=== PATIENT | female | born 1945 | race Two or more races ===

== ENCOUNTER 2019-08-14 10:58 | Inpatient (IN) | payer MEDICARE, MEDICAID, SELFPAY ==
[2019-08-14] VITALS (19 sets, daily range): BP systolic 116–150; BP diastolic 52–116; PULSE 76–98; RESP 16–25; TEMP 36.6–37; O2SAT 80–100; BMI 28.8
--- NOTE | ~2019-08-14 | XR_ITS ---
XR chest 2V DATE: 08/14/2019 13:42 INDICATION: Coughing TECHNIQUE: AP and lateral views COMPARISON: 07/29/2019 AP and lateral chest FINDINGS: There is mild elevation of the left navicular diaphragm. Cardiomegaly. Postoperative change of the heart. Aortic calcification. Proximal left arm vascular dane nt. No pulmonary infiltrate or consolidation, pleural effusion or pulmonary vascular congestion or pneumo thorax. Diffuse osteopenia. IMPRESSION: Cardiomegaly Aortic atherosclerosis Mild elevation left leaf of diaphragm Reviewed, dictated and finalized at location B. DAY CARE PROVIDER
--- NOTE | ~2019-08-14 | XR_ITS ---
XR chest 2V DATE: 08/16/2019 09:16 INDICATION: Shortness of breath, hypoxia. Flu. TECHNIQUE: PA and lateral views COMPARISON: 08/24/2021 view chest FINDINGS: Cardiomegaly. There is extensive thoracic and abdominal aortic calcification. No hilar or m ediastinal enlargement. No pulmonary infiltrate or consolidation, pleural effusion or pulmonary vascu lar congestion or pneumothorax. Diffuse osteopenia. IMPRESSION: Cardiomegaly; postoperative change of the heart Extensive thoracic and abdominal aortic calcification No active pulmonary disease Diffuse osteopenia Reviewed, dictated and finalized at location A. UREMENT PSYCHOLOGIST
--- NOTE | ~2019-08-14 | CT_ITS ---
EXAMINATION: CT chest wo con DATE: 08/17/2019 16:33 INDICATION: hallucinations, anxious, FLU+, crackles noted,PNA?,SOB TECHNIQUE: Computed tomography (CT) of the chest was performed without intravenous contrast. Addition al 3D reconstructions utilizing coronal maximum intensity projection (MIP) were performed. Automated exposure control and iterative reconstruction technique were employed. The dose-length product was 31 1.96 mGy-cm. COMPARISON: None FINDINGS: Mild respiratory motion throughout the lungs which mildly limits evaluation of fine pulmonary parench ymal detail. 9 x 6 mm subpleural nodule at the cephalad aspect of a band of atelectasis in the real estate underwriter ior left lower lobe. Remainder of the lungs are clear. No evident pneumonia or pulmonary edema. Small left pleural effusion. Cardiomegaly. Atrial appendage closure device at the left atrial appendage. A therosclerotic coronary artery calcifications. No pericardial effusion. Atherosclerotic calcification s throughout the thoracic aorta with fusiform ascending thoracic aortic aneurysm measuring up to 4.4 x 4.4 cm. No pathologically enlarged thoracic lymphadenopathy. At least moderate atrophy and multiple small cysts at the visualized upper poles of both kidneys. Moderate to severe thoracic spondylosis. IMPRESSION: 1. Small left pleural effusion. 2. 9 x 6 mm subpleural nodule in the left lower lobe most likely related to atelectasis but would rec ommend 3 month follow-up low-dose noncontrast chest CT. 3. Cardiomegaly with left atrial appendage occlusion device. 4. 4.4 cm ascending thoracic aortic aneurysm. 5. Bilateral renal atrophy. Reviewed, dictated and finalized at location A. TH COACH IMPRESSION: 1. Small left pleural effusion. 2. 9 x 6 mm subpleural nodule in the left lower lobe most likely related to ate lectasis but would recommend 3 month follow-up low-dose noncontrast chest CT. 3. Cardiomegaly with left atrial appendage occlusion device. 4. 4.4 cm ascending thoracic aortic aneurysm. 5. Bilateral renal atrophy.
--- NOTE | 2019-08-14 11:14 | ECG_ITS ---
Measurements Intervals [place]er Rate: 91 P: SC: 0 QRS: 97 QRSD: 90 T: 38 QT: 360 QTc: 443 Interpretive Statements ATRIAL FLUTTER WITH VARIABLE AV BLOCK RIGHT AXIS DEVIATION LOW QRS VOLTAGE IN PRECORDIAL LEADS BORDERLINE T WAVE ABNORMALITY- DIFFUSE LEADS BASELINE ARTIFACT- V1, V5-V6 ABNORMAL ECG Electronically Signed On 08-14-2019 11:49:22 CERAMIST by Danny Soliz D.O.
--- NOTE | 2019-08-14 12:22 | ED.WEAKNESS ---
HPI - Weakness General Chief complaint: Weakness Stated complaint: weakness, high bp Time Seen by Provider: 08/14/19 12:08 Source: patient, RN notes reviewed and other (translation director) Mode of arrival: ambulatory Limitations: no limitations History of Present Illness HPI Narrative: Pt is a 74 y/o female presenting to the ED c/o weakness. Pt reports she has been experiencing weakness since yesterday. Pt also reports SOB, CP, epigastric ABD pain, and cough. Pt states her epigastric ABD pain started yesterday and notes she has not eaten anything since. Pt's caregiver at bedside reports the pt was hospitalized to this facility last Sunday for 2 days due to having an unknown viral infection. Per caregiver, the pt tested negative for pneumonia or influenza at that time. Pt's caregiver states the pt lives alone and receives help from her for about 4 hrs a day. Per caregiver, the pt receives Dialysis on MWF, noting she last had Dialysis yesterday morning. Per caregiver, the pt's BP was 186/98, CA of 118, and had a BS over 300 this morning. Pt reports Hx's of DM and HTN. Onset (ago): unknown (Yesterday) Duration: constant Location: generalized Associated symptoms: chest pain, shortness of breath and other (Epigastric ABD pain; cough) Related Data Home Medications Medication Instructions Recorded Confirmed Januvia 100 mg PO DAILY 06/12/19 07/28/19 Prolia 60 mg SUBCUT [id number] 06/12/19 07/28/19 aspirin 81 mg PO DAILY 06/12/19 07/28/19 carvedilol 12.5 mg PO BID 06/12/19 07/28/19 cinacalcet [Sensipar] 30 mg PO DAILY 06/12/19 07/28/19 clotrimazole 1 applic TOPICAL BID 06/12/19 07/28/19 cyanocobalamin (vitamin B-12) 500 mcg PO DAILY 06/12/19 07/28/19 pioglitazone [Actos] 15 mg PO DAILY 06/12/19 07/28/19 sevelamer carbonate [Renvela] 1,600 mg PO TID 06/12/19 07/28/19 Victoza 2-Agustín 1.8 mg SUB-Q HS 07/28/19 07/28/19 imipramine HCl 25 mg PO HS 07/28/19 07/28/19 Allergies Allergy/AdvReac Type Severity Reaction Status Date / Time cefazolin Allergy Mild nausea/dizz Verified 08/07/19 11:05 iness enalapril Allergy Unknown cough Verified 08/07/19 11:05 pioglitazone Allergy Unknown Unknown Verified 08/07/19 11:05 tramadol Allergy Unknown hallucinati Verified 08/07/19 11:05 ons Review of Systems Review of Systems: All systems reviewed & are unremarkable except as noted in HPI and below Constitutional: Constitutional: Reports weakness (Generalized) Cardiovascular: Cardiovascular: Reports chest pain Respiratory: Respiratory: Reports cough and Reports dyspnea Gastrointestinal: Gastrointestinal: Reports abdominal pain (Epigastric) [facility] Past Medical History Medical History Anemia of chronic disease Atrial fibrillation paroxysmal AV fistula Closed fracture of lateral portion of right tibial plateau (~2014) DM2 (diabetes mellitus, type 2) End stage renal disease on dialysis Sunday Hyperlipidemia Hypertension Osteoarthritis of both knees Osteoporosis Presence of Watchman left atrial appendage closure device Staphylococcal septicemia (~2013) Surgical History Surgical History History of arthroplasty of right ankle History of arthroscopy (~12/07/12) wrist History of cataract extraction History of colonoscopy (~12/02/15) History of knee replacement (~2015) right Family History Family History Father Hypertension Family history of cardiovascular disease Mother Hypertension Diabetes mellitus Family history of lung cancer Sibling Family history of cardiovascular disease Social History Social History Social History: the patient is . She has 2 daughters and a son. The 2 daughters are listed as her durable power research attorney for health care and the patient desires to be a full code. She is a lifelong nonsmoker no alcohol no illicit
[2019-08-14 13:12] LABS: Alveolar/Arterial O2 Gradient 39.5 mmHg; Base Excess ABG 6.1 mEq/l (+/-2.0); Fractional Inspired Oxygen 21 %; HCO3 ABG 32.6 mEq/l (22.0-26.0); Oxygen Content ABG 9.9 %vol (16.0-22.0); Oxyhemoglobin 70.9 % THb (90.0-100.0); PCO2 ABG 57.6 mmHg (35.0-45.0); PO2 ABG 41.3 mmHg (80.0-100.0); PO2 FiO2 Ratio Arterial Blood 1.97 %; Total Hemoglobin 9.9 g/dL (12.0-18.0)
[2019-08-14 13:13] LABS: Device ROOM AIR; Modified Allen's Test Pass; Site Drawn LEFT RADIAL
[2019-08-14 13:14] LABS: Basophils Percent Auto 0.3 % (0.2-1.2); Hematocrit 32.9 % (37.0-47.0); Hemoglobin 9.4 g/dL (12.0-15.0); Immature Granulocyte Absolute 0.19 K/mm3 (0.00-0.031); Immature Granulocyte Percent A 1.3 % (0-0.5); Lymphocytes Absolute Auto 0.52 K/mm3 (0.9-3.2); Lymphocytes Percent Auto 3.7 % (18.3-44.2); Mean Corpuscular HGB Conc 28.6 g/dl (32-36); Mean Corpuscular Hemoglobin 31.2 pg (26-34); Mean Corpuscular Volume 109.3 fl (80-100); Mean Platelet Volume 12.6 fl (7.4-10.4); Monocytes Absolute Auto 0.8 K/mm3 (0.1-0.6); Monocytes Percent Auto 5.5 % (2.6-8.5); Neutrophils Absolute Auto 12.7 K/mm3 (1.3-6.7); Neutrophils Percent Auto 89.2 % (45.5-73.1); Nucleated Red Blood Cells Perc 0.1 % (0.0-0.2); Platelet Count Result 217 k/mm3 (150-375); Red Blood Count 3.01 M/mm3 (4.2-5.4); Red Cell Distribution Width 16.1 % (11.5-14.5); White Blood Count 14.2 K/mm3 (4.5-10.0)
[2019-08-14 13:21] LABS: Add Urine Microscopic? YES; Appearance Urine Cloudy (Clear); Bacteria Urine 3+ /hpf; Bilirubin Urine Negative (Negative); Blood Urine 2+ (Negative); Color Urine Yellow (Yellow); Glucose Urine UA 2+ mg/dL (Negative); Ketones Urine Trace mg/dL (Negative); Leukocyte Esterase Ur 2+ LEU/UL (Negative); Mucus Urine Rare /lpf; Nitrate Urine Negative (Negative); Protein Urine 1+ mg/dL (Negative); RBC Urine 21-50 /hpf (0-2); Specific Grav Ur 1.011 (1.001-1.035); Squamous Epithelial Cell Urine Many /hpf (Few); Urobilinogen Urine Negative mg/dL (<2.0); WBC Clumps Urine Present /HPF; WBC Urine >75 /hpf
[2019-08-14 13:24] LABS: INR 1.2; Prothrombin Time 14.8 Seconds (11.1-14.7)
[2019-08-14 13:25] LABS: Partial Thromboplastin Time 30.3 SECONDS (22.3-36.8)
[2019-08-14 13:26] LABS: Lactic Acid Reflex 1.3 mmol/L (0.7-2.1)
[2019-08-14 13:32] LABS: Alanine Aminotransferase 19 U/L (4-35); Albumin Level 3.9 g/dL (3.5-5.1); Alkaline Phosphatase 291 U/L (38-126); Aspartate Amino Transferase 24 U/L (14-36); Blood Urea Nitrogen 41 mg/dL (7-17); Calcium 9.1 mg/dL (8.4-10.2); Carbon Dioxide 34 mmol/L (22-30); Chloride 80 mmol/L (98-107); Estimated CRCL calculation 8 ml/min; Estimated Glomerular Filt Rate 9; Glucose 398 mg/dL (65-105); Potassium 5.1 mmol/L (3.4-5.0); Sodium 134 mmol/L (137-145)
[2019-08-14 13:43] LABS: CRP 16.1 mg/dL (<1.0)
[2019-08-14] MEDS: IPRATROPIUM BR 0.02% INH SOLN 0.5 MG/2.5 ML VIAL INHALATION (14:31)
[2019-08-14] MEDS: ALBUTEROL SULFATE NEB 2.5 MG/0.5 ML INH 5 MG INHALATION ×2 (14:31→20:27)
[2019-08-14] MEDS: methylPREDNISolone SOD SUCC 125 MG VIAL IV PUSH (15:54)
[2019-08-14] MEDS: levoFLOXacin 500 MG/D5W 100 ML 500 MG/100 ML BAG 100 MG IVPB (15:54)
--- NOTE | 2019-08-14 16:25 | PM.IMHP ---
H&P: HPI History of Present Illness Chief complaint: Cough, weakness. Narrative: Shasta Obando is a very pleasant 74 year old female with end-stage renal disease on hemodialysis, hypertension, diabetes, and several other comorbidities who presented to the emergency department earlier this afternoon via private vehicle from home for evaluation of cough and weakness. She has noted the hospitalist service as she was admitted to us overnight July 28, 2019 with cough and weakness, presumably due to a viral infection. She felt better on discharge but the fatigue has persisted, and she has been sleeping a lot of the day. Her cough has gotten worse over the last 12 hours or so, but remains nonproductive. She also mentions sneezing, some sinus congestion, wheezing, and mild shortness of breath with exertion. Prior to receiving a nebulizer treatment in the emergency department, she did have some mild chest tightness but that resolved. She has not had fever, chills, or sweats. Review of Systems Review of Systems: Narrative: Twelve systems were reviewed with pertinent positives and negatives as per HPI. No headache or neck ache. She denies otalgia and odynophagia. No exertional chest pain or shortness of breath. Denies orthopnea, PND, and lower extremity edema. Except as documented, all other systems were reviewed and are negative. [facility] Past Medical History Medical History (Updated 08/14/19 @ 20:35 by Leila Garcia PA-C) Anemia of chronic disease AV fistula Closed fracture of lateral portion of right tibial plateau (~2014) End stage renal disease on dialysis Dialysis days are Sunday, Sunday, and Sunday. She is on the transplant list at [place]. Hyperlipidemia Hypertension Osteoarthritis of both knees Osteoporosis Paroxysmal atrial fibrillation Presence of Watchman left atrial appendage closure device Staphylococcal septicemia (~2013) Type 2 diabetes mellitus Hemoglobin A1c was 6.6 in July 2019. Surgical History Surgical History History of arthroplasty of right ankle History of arthroscopy (~12/07/12) wrist History of cataract extraction History of colonoscopy (~12/02/15) History of knee replacement (~2015) right Family History Family History Father Hypertension Family history of cardiovascular disease Mother Hypertension Diabetes mellitus Family history of lung cancer Sibling Family history of cardiovascular disease Social History Social History (Updated 08/14/19 @ 20:23 by Leila Garcia PA-C) Social History: The patient is and lives in [place]. She is originally from [place]. 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 She has 2 daughters who live in [place]. She has 1 son who lives in [facility]. She designates her daughters as her surrogate decision makers and she wishes to be a full code. She is a lifelong nonsmoker. No alcohol or drug abuse. Spiritual care concerns: No Agree to blood products: Yes Meds Home Medications and Allergies Home Medications Medication Instructions Recorded Confirmed Type Januvia 100 mg PO DAILY 06/12/19 07/28/19 History Prolia 60 mg SUBCUT [id number] 06/12/19 07/28/19 History aspirin 81 mg PO DAILY 06/12/19 07/28/19 History carvedilol 12.5 mg PO BID 06/12/19 07/28/19 History cinacalcet [Sensipar] 30 mg PO DAILY 06/12/19 07/28/19 History clotrimazole 1 applic TOPICAL BID 06/12/19 07/28/19 History cyanocobalamin (vitamin B-12) 500 mcg PO DAILY 06/12/19 07/28/19 History pioglitazone [Actos] 15 mg PO DAILY 06/12/19 07/28/19 History sevelamer carbonate [Renvela] 1,600 mg PO TID 06/12/19 07/28/19 History lovastatin 20 mg tablet 20 mg PO DAILY #90 tablet 06/16/19 07/28/19 Rx Victoza 2-Agustín 1.8 mg SUB-Q HS 07/28/19 07/28/19 History imipramine HCl 25 mg PO HS 07/28/19 07/28/19 History losartan
--- NOTE | 2019-08-14 18:28 | ADMGEN ---
This patient, Shasta Obando, was admitted to 2 Medical Room 241-01. Patient/family oriented to hospital policies and general routines including ID bracelet, bed and alarms, visiting hours, pain management, procedures, bathroom and other care routines, personal items, smoking policy, room service/diet, and visiting hours. Valuables list has been completed. Information on how to activate the Rapid Response Team has been discussed. Patient/Family are encouraged to report perceived risks to care and to ask questions if they do not understand what they are told or what they should do.
[2019-08-14] MEDS: INSULIN ASPART (*BKC) 100 UNITS/ML 6 UNITS SUB-Q (19:20)
[2019-08-14 19:24] LABS: Glucose Point of Care 363 (65-105)
[2019-08-14] MEDS: INSULIN ASPART (*BKC) 100 UNITS/ML 8 UNITS SUB-Q (20:44)
[2019-08-14 20:58] LABS: Glucose Point of Care 405 (65-105)
[2019-08-14] MEDS: IMIPRAMINE HCL 25 MG TABLET PO (21:40)
[2019-08-14] MEDS: carvediloL 12.5 MG TABLET PO (21:40)
[2019-08-14 23:49] LABS: Glucose Point of Care 276 (65-105)
[2019-08-15] VITALS (27 sets, daily range): BP systolic 98–149; BP diastolic 47–89; PULSE 72–100; RESP 16–20; TEMP 36.3–37; O2SAT 83–100
[2019-08-15] MEDS: IPRATROPIUM BR 0.02% INH SOLN 0.5 MG/2.5 ML VIAL INHALATION ×3 (02:26→14:30)
[2019-08-15] MEDS: ALBUTEROL SULFATE NEB 2.5 MG/0.5 ML INH 5 MG INHALATION ×3 (02:27→14:30)
[2019-08-15 05:43] LABS: Hematocrit 30.2 % (37.0-47.0); Hemoglobin 8.5 g/dL (12.0-15.0); Mean Corpuscular HGB Conc 28.1 g/dl (32-36); Mean Corpuscular Hemoglobin 30.9 pg (26-34); Mean Corpuscular Volume 109.8 fl (80-100); Mean Platelet Volume 12.6 fl (7.4-10.4); Platelet Count Result 189 k/mm3 (150-375); Red Blood Count 2.75 M/mm3 (4.2-5.4); Red Cell Distribution Width 16.4 % (11.5-14.5); White Blood Count 10.4 K/mm3 (4.5-10.0)
[2019-08-15 05:55] LABS: Blood Urea Nitrogen 54 mg/dL (7-17); Calcium 8.2 mg/dL (8.4-10.2); Carbon Dioxide 32 mmol/L (22-30); Chloride 83 mmol/L (98-107); Estimated CRCL calculation 7 ml/min; Estimated Glomerular Filt Rate 7; Glucose 412 mg/dL (65-105); Potassium 5.2 mmol/L (3.4-5.0); Sodium 132 mmol/L (137-145)
[2019-08-15] MEDS: INSULIN ASPART (*BKC) 100 UNITS/ML SUB-Q (08:01)
[2019-08-15] MEDS: SEVELAMER CARBONATE 800 MG TABLET 1600 MG PO ×3 (08:03→17:57)
[2019-08-15] MEDS: CYANOCOBALAMIN 500 MCG TABLET PO (08:03)
[2019-08-15] MEDS: CINACALCET 30 MG TABLET PO (08:03)
[2019-08-15] MEDS: LOVASTATIN 20 MG TABLET PO (08:03)
[2019-08-15] MEDS: ASPIRIN 81 MG CHEWABLE TABLET PO (08:03)
[2019-08-15] MEDS: LOSARTAN POTASSIUM 25 MG TABLET PO (08:04)
[2019-08-15] MEDS: predniSONE 20 MG TABLET 40 MG PO (08:04)
[2019-08-15] MEDS: carvediloL 12.5 MG TABLET PO ×2 (08:04→19:54)
[2019-08-15] MEDS: MICONAZOLE NITRATE 2% CREAM 30 GM TUBE 1 APPLIC TOPICAL ×2 (08:14→17:58)
[2019-08-15 09:20] LABS: Glucose Point of Care 383 (65-105)
--- NOTE | 2019-08-15 09:36 | PM.CNNEP ---
Assessment and Plan Assessment and plan (1) End stage renal disease on dialysis: Code(s): N18.6 - End stage renal disease; Z99.2 - Dependence on renal dialysis Status: Chronic Assessment and Plan: Shasta has end-stage renal disease. She has been on dialysis for quite some time. She is due for dialysis today. I will go ahead and order this. Her potassium is a little high so I will do her on a low-potassium bath. We will take some fluid off as well. (2) Influenza A: Code(s): J10.1 - Influenza due to other identified influenza virus with other respiratory manifestations Status: Acute Assessment and Plan: The patient has a positive flu swab. She is on isolation. she will get antivirals. (3) Anemia of chronic disease: Code(s): D63.8 - Anemia in other chronic diseases classified elsewhere Status: Acute Assessment and Plan: Hemoglobin is 8.5. Will give Epogen. (4) Hypertension: Code(s): I10 - Essential (primary) hypertension Status: Chronic Assessment and Plan: Blood pressure is under good control. She is on carvedilol losartan for her blood pressure. (5) Atrial fibrillation: Qualifiers: Atrial fibrillation type: permanent Qualified Code(s): I48.21 - Permanent atrial fibrillation Code(s): I48.91 - Unspecified atrial fibrillation Status: Chronic Assessment and Plan: Heart rate is well controlled. She has a Watchman device. History of Present Illness Reason for Consult Consult date: 08/15/19 Chief Complaint Chief complaint: Cough, weakness. History of Present Illness Narrative: Shasta is a very pleasant 74-year-old lady who has multiple medical problems including end-stage renal disease on dialysis 3 times a week, hypertension, diabetes, calciphylaxis, recurrent hyperkalemia, anemia of chronic kidney disease, renal osteodystrophy, hyperlipidemia, osteoporosis. The patient was well on Sunday morning. She went to dialysis and at I actually saw her there. She says that Sunday evening she developed shortness of breath and fever. She also had aches and pains. She has had a cough for 3 weeks and that was a little bit worse she thinks. She has not started on any new medications. She does not have any sick contacts. morning she felt worse and so she went to the emergency room. She was evaluated in the ER and they swab was positive for influenza a. Chest x-ray did not show fluid overload. She was admitted to the floor. She has no chest pain. No GI symptoms. No skin rash. She does not smoke or drink. Review of Systems Constitutional: Constitutional: Reports no additional constitutional complaints Eyes: Eyes: Reports no additional eye complaints ENT: Reports system reviewed and no additional complaints, except as documented Cardiovascular: Cardiovascular: Reports no additional cardiovascular complaints Respiratory: Respiratory: Reports no additional respiratory complaints Gastrointestinal: Gastrointestinal: Reports no additional gastrointestinal complaints Genitourinary: Genitourinary: Reports no additional female genitourinary complaints Musculoskeletal: Musculoskeletal: Reports no additional musculoskeletal complaints Integumentary/Breasts: Skin/Breast: Reports system reviewed and no additional complaints, except as docu Neurologic: Reports system reviewed and no additional complaints, except as documented Psychiatric: Psychiatric: Reports no additional psychiatric complaints PMFSH Past Medical History Medical History Anemia of chronic disease AV fistula Closed fracture of lateral portion of right tibial plateau (~2014) End stage renal disease on dialysis Dialysis days are Sunday, Sunday, and Sunday. She is on the transplant list at [place]. Hyperlipidemia Hypertension Osteoarthritis of both knees Osteoporosis Paroxysmal atrial fib
--- NOTE | 2019-08-15 10:52 | PM.IMPN ---
Progress Note: A&P Assessment and Plan (1) Acute respiratory failure with hypoxia: Code(s): J96.01 - Acute respiratory failure with hypoxia Status: Acute Assessment and Plan: Could be secondary to acute influenza A, patient does have some crackles in her lungs in a.m. concerned about pneumonia. We will recheck her chest x-ray in the morning since she is feeling better today but still hypoxic. The patient is still found to be hypoxic on room air. The nurse states she was 100% on 2 L and had waiting the patient down to room air and the next time they checked on her her oxygen saturation was 85%. They placed her back on 2 L of oxygen at this time. I told the nurse to wean the patient's oxygen as tolerated to keep saturation between 90-95%. We will continue monitoring patient's respiratory status. Wean oxygen as tolerated. (2) Influenza A: Code(s): J10.1 - Influenza due to other identified influenza virus with other respiratory manifestations Status: Acute Assessment and Plan: With talking to the patient it seems that her symptoms began Sunday evening which is less than 24 hours prior to arrival. She was started on Tamiflu this morning and will continue that for 5 days. Droplet precautions are initiated on the patient. Are stable other than hypoxia and requiring oxygen. Will continue monitoring her symptoms with conservative management and Tamiflu. (3) Acute bronchospasm: Code(s): J98.01 - Acute bronchospasm Status: Acute Assessment and Plan: Patient was having some wheezing and chest pressure/tightness which was improved after some breathing treatments and steroids. Secondary to upper respiratory infection and influenza. She was given a dose of IV steroids in the emergency department upon arrival. Today she was started on p.o. prednisone taper for her acute bronchospasm. She is still having some wheezing and decreased air movement throughout her lungs today. Will continue monitoring her respiratory status with DuoNebs, oral prednisone, and oxygen as needed. (4) End stage renal disease on dialysis: Code(s): N18.6 - End stage renal disease; Z99.2 - Dependence on renal dialysis Status: Chronic Assessment and Plan: Dr. Suarez evaluated the patient and has set up dialysis for today. Her creatinine this morning was 5.9, slight hypokalemia at 5.2. Will continue monitoring her renal function, urine output, monitor further during hospitalization. Nephrology is consult is greatly appreciated. (5) Anemia of chronic disease: Code(s): D63.8 - Anemia in other chronic diseases classified elsewhere Status: Acute Assessment and Plan: Patient's hemoglobin last admission was initially 11.3 and decreased to 9.9. On arrival the patient's hemoglobin was 9.4 and hematocrit was 32.9. Hemoglobin this morning was 8.5 and hematocrit was 30.2% Dr. Suarez is going to add Epogen with her dialysis today. Continue monitoring H&H. No acute signs of bleeding at this time. Transfuse as needed. (6) Hypertension: Code(s): I10 - Essential (primary) hypertension Status: Chronic Assessment and Plan: Patient's blood pressure has been stable since arrival BP this morning was 117/55. Stable. Continue antihypertensives and monitor daily. (7) Type 2 diabetes mellitus: Code(s): E11.9 - Type 2 diabetes mellitus without complications Status: Acute Assessment and Plan: Patient's hemoglobin A1c on 07/29/2019 was 6.6. Serum glucose on arrival was 398. She was given IV Solu-Medrol in the emergency department. Her serum glucose this morning was 412. She was given 8 units this morning. Initiate sliding
[2019-08-15 11:44] LABS: Glucose Point of Care 452 (65-105)
[2019-08-15] MEDS: INSULIN ASPART (*BKC) 100 UNITS/ML 8 UNITS SUB-Q (12:11)
[2019-08-15] MEDS: OSELTAMIVIR PHOSPHATE 30 MG CAPSULE PO (12:12)
[2019-08-15] MEDS: INSULIN ASPART (*BKC) 100 UNITS/ML 12 UNITS SUB-Q ×2 (18:26→20:50)
[2019-08-15 18:29] LABS: Glucose Point of Care 440 (65-105)
--- NOTE | 2019-08-15 19:34 | PHAR ---
VICTOZA 18MG/3ML PEN VERIFIED
[2019-08-15] MEDS: INSULIN GLARGINE (*BKC) 100 UNITS/ML 20 UNITS SUB-Q (19:56)
[2019-08-15 20:12] LABS: Glucose Point of Care > 500 (65-105)
[2019-08-16] VITALS (17 sets, daily range): BP systolic 121–134; BP diastolic 61–93; PULSE 79–119; RESP 16–20; TEMP 36.4–37.4; O2SAT 87–100
[2019-08-16 00:07] LABS: Glucose Point of Care 103 (65-105)
[2019-08-16] MEDS: IPRATROPIUM BR 0.02% INH SOLN 0.5 MG/2.5 ML VIAL INHALATION ×4 (02:05→21:30)
[2019-08-16] MEDS: ALBUTEROL SULFATE NEB 2.5 MG/0.5 ML INH 5 MG INHALATION ×4 (02:05→21:30)
[2019-08-16 02:18] LABS: Glucose Point of Care 174 (65-105)
[2019-08-16 06:20] LABS: Glucose Point of Care 171 (65-105)
[2019-08-16 06:44] LABS: Basophils Percent Auto 0.1 % (0.2-1.2); Hematocrit 30.4 % (37.0-47.0); Hemoglobin 8.7 g/dL (12.0-15.0); Immature Granulocyte Absolute 0.13 K/mm3 (0.00-0.031); Lymphocytes Absolute Auto 0.63 K/mm3 (0.9-3.2); Lymphocytes Percent Auto 4.7 % (18.3-44.2); Mean Corpuscular HGB Conc 28.6 g/dl (32-36); Mean Corpuscular Volume 108.2 fl (80-100); Mean Platelet Volume 12.1 fl (7.4-10.4); Monocytes Absolute Auto 0.9 K/mm3 (0.1-0.6); Monocytes Percent Auto 6.8 % (2.6-8.5); Neutrophils Absolute Auto 11.8 K/mm3 (1.3-6.7); Neutrophils Percent Auto 87.4 % (45.5-73.1); Nucleated Red Blood Cells Perc 0.1 % (0.0-0.2); Platelet Count Result 212 k/mm3 (150-375); Red Blood Count 2.81 M/mm3 (4.2-5.4); Red Cell Distribution Width 16.4 % (11.5-14.5); White Blood Count 13.5 K/mm3 (4.5-10.0)
[2019-08-16 06:56] LABS: Albumin Level 3.2 g/dL (3.5-5.1); Blood Urea Nitrogen 27 mg/dL (7-17); Calcium 7.8 mg/dL (8.4-10.2); Carbon Dioxide 34 mmol/L (22-30); Chloride 91 mmol/L (98-107); Estimated CRCL calculation 11 ml/min; Estimated Glomerular Filt Rate 13; Glucose 174 mg/dL (65-105); Phosphorus 3.6 mg/dL (2.5-4.5); Sodium 135 mmol/L (137-145)
[2019-08-16] MEDS: CYANOCOBALAMIN 500 MCG TABLET PO (08:00)
[2019-08-16] MEDS: LOVASTATIN 20 MG TABLET PO (08:00)
[2019-08-16] MEDS: carvediloL 12.5 MG TABLET PO ×2 (08:00→20:31)
[2019-08-16] MEDS: predniSONE 20 MG TABLET 40 MG PO (08:00)
[2019-08-16] MEDS: LOSARTAN POTASSIUM 25 MG TABLET PO (08:01)
[2019-08-16] MEDS: CINACALCET 30 MG TABLET PO (08:01)
[2019-08-16] MEDS: SEVELAMER CARBONATE 800 MG TABLET 1600 MG PO ×3 (08:02→17:17)
[2019-08-16] MEDS: MICONAZOLE NITRATE 2% CREAM 30 GM TUBE 1 APPLIC TOPICAL ×2 (08:09→17:18)
[2019-08-16 08:52] LABS: Anisocytosis 1+ (NORMAL); Hypochromasia 1+ (NORMAL); Macrocytosis 1+ (NORMAL); Platelet Estimate Adequate (Adequate)
[2019-08-16 09:29] LABS: Glucose Point of Care 175 (65-105)
[2019-08-16] MEDS: ASPIRIN 81 MG CHEWABLE TABLET PO (10:32)
--- NOTE | 2019-08-16 10:43 | PM.PNNEP ---
Progress Note: A&P Assessment and Plan (1) End stage renal disease on dialysis: Code(s): N18.6 - End stage renal disease; Z99.2 - Dependence on renal dialysis Status: Chronic Assessment and Plan: HD yesterday and continue M/W/F schedule while hospitalized electrolytes, volume status, and clearance seem acceptable (2) Influenza A: Code(s): J10.1 - Influenza due to other identified influenza virus with other respiratory manifestations Status: Acute Assessment and Plan: as noted by positive flu swab on Tamiflu continue supportive therapy (3) Anemia of chronic disease: Code(s): D63.8 - Anemia in other chronic diseases classified elsewhere Status: Acute Assessment and Plan: due to ESRD and possibly worsened by acute illness Epogen with HD follow trend of H/H (4) Hypertension: Code(s): I10 - Essential (primary) hypertension Status: Chronic Assessment and Plan: blood pressure under good control continue carvedilol and losartan follow trend of hemodynamics (5) Acute bronchospasm: Code(s): J98.01 - Acute bronchospasm Status: Acute Assessment and Plan: secondary to influenza on supplemental oxygen, nebulizer treatments, and steroids Will continue to follow. Subjective Date/time seen: 08/16/19 10:43 Tolerated dialysis yesterday evening without any issues or problems; she is still requiring supplement oxygen at this time; also has a nonproductive cough as well; no apparent distress voiced. Exam Narrative: Exam Narrative: General: WD/WN female in NAD Heart: normal S1 and S2; no rub Lungs: some expiratory wheezes noted Abdomen: soft, nontender, nondistended, positive bowel sounds Extremities: no cyanosis or clubbing; no edema Skin: warm and dry Objective Data Vital Signs Vital Signs: Vital Signs Temp Pulse Resp BP Pulse Ox 08/16/19 10:35 93 08/16/19 10:30 87 L 08/16/19 09:46 85 18 08/16/19 09:30 88 18 100 08/16/19 08:00 119 H 08/16/19 05:44 36.9 C 119 H 20 123/93 H 96 08/16/19 02:15 89 20 08/16/19 02:05 85 20 08/15/19 23:30 36.6 C 82 20 135/70 08/15/19 23:23 73 119/58 L 08/15/19 23:15 72 124/56 L 08/15/19 23:00 77 98/52 L 08/15/19 22:45 76 104/47 L 08/15/19 22:30 78 112/49 L 08/15/19 22:15 80 111/47 L 08/15/19 22:00 76 118/50 L 08/15/19 21:45 84 118/56 L 08/15/19 21:30 86 130/89 08/15/19 21:15 76 111/57 L 08/15/19 21:00 80 122/63 08/15/19 20:45 81 132/67 08/15/19 20:30 81 149/63 H 08/15/19 20:22 83 136/69 08/15/19 20:15 36.8 C 89 20 133/60 08/15/19 19:54 80 08/15/19 14:40 88 16 08/15/19 14:30 86 16 08/15/19 14:00 36.4 C 86 20 117/55 L 100 08/15/19 13:00 83 L Intake/Output Intake/Output: Intake & Output 08/13/19 08/14/19 08/15/19 08/16/19 23:59 23:59 23:59 23:59 Intake Total 2180 600 Output Total 2700 Balance -520 600 Meds/Results Medications: Active Medications Generic Name Dose Route Start Last Admin Trade Name Freq PRN Reason Stop Dose Admin Albuterol 5 mg 08/15/19 02:00 08/16/19 09:30 Albuterol Sulf Neb 2.5mg/0.5ml INHALATION 5 mg Q6HRT THERESE Administration Aspirin 81 mg 08/15/19 09:00 08/16/19 10:32 Aspirin Chewable PO 81 mg DAILY THERESE Administration Carvedilol 12.5 mg 08/14/19 21:00 08/16/19 08:00 Coreg PO 12.5 mg Q12HR THERESE Administration Cinacalcet 30 mg 08/15/19 09:00 08/16/19 08:01 Sensipar PO 30 mg DAILY THERESE Administration Cyanocobalamin 500 mcg 08/15/19 09:00 08/16/19 08:00 Vitamin B-12 Tab PO 500 mcg DAILY THERESE Administration Dextrose 12.5 gm 08/14/19 18:51 Dextrose 50% Syringe IV PUSH PRN PRN Hypoglycemia Protocol Ergocalciferol 50,000 unit 08/21/19 09:00 Elvis WILCOX Th@0900 [facility] Glucag
[2019-08-16] MEDS: INSULIN ASPART (*BKC) 100 UNITS/ML SUB-Q ×2 (12:34→17:19)
[2019-08-16 12:54] LABS: Glucose Point of Care 221 (65-105)
--- NOTE | 2019-08-16 16:18 | PM.IMPN ---
Progress Note: A&P Assessment and Plan (1) Acute respiratory failure with hypoxia: Code(s): J96.01 - Acute respiratory failure with hypoxia Status: Acute Assessment and Plan: Could be secondary to acute influenza A, patient does have some wheezing in her lungs with inspiration expiration. Repeat chest x-ray this morning showed no acute pneumonia or abnormality. She is still hypoxic and requiring 1 L via nasal cannula. We will continue trying to wean the patient as tolerated. I told the nurse to wean the patient's oxygen as tolerated to keep saturation between 90-95%. We will continue monitoring patient's respiratory status. Wean oxygen as tolerated. (2) Influenza A: Code(s): J10.1 - Influenza due to other identified influenza virus with other respiratory manifestations Status: Acute Assessment and Plan: With talking to the patient it seems that her symptoms began Sunday evening which is less than 24 hours prior to arrival. She was started on Tamiflu this morning and will continue that for 5 days. Droplet precautions are initiated on the patient. He does have some weakness, fatigue, diaphoresis along with hypoxia and requiring oxygen. Will continue monitoring her symptoms with conservative management and Tamiflu. (3) Acute bronchospasm: Code(s): J98.01 - Acute bronchospasm Status: Acute Assessment and Plan: Patient was having some wheezing and chest pressure/tightness which was improved after some breathing treatments and steroids. Secondary to upper respiratory infection and influenza. She was given a dose of IV steroids in the emergency department upon arrival. Today, she has more air movement but has increased wheezing with end inspiration and throughout expiration. Continued on p.o. prednisone taper 40 mg (day 2) for her acute bronchospasm, will decrease to 30 mg for 2 days then 20 mg for 2 days then 10 mg for 2 days. Will continue monitoring her respiratory status with DuoNebs, oral prednisone, and oxygen as needed. (4) Cardiomegaly: Code(s): I51.7 - Cardiomegaly Status: Acute Assessment and Plan: The patient also has crackles noted to bilateral lung salazar, mostly to posterior aspect of her lungs. On CXR she does have Cardiomegaly. I do not see an echocardiogram in the patients chart and she could have some pulmonary edema causing some hypoxia and symptoms. Will order Echocardiogram to further evaluate her heart function. Continue monitoring respiratory status and fluid status. (5) End stage renal disease on dialysis: Code(s): N18.6 - End stage renal disease; Z99.2 - Dependence on renal dialysis Status: Chronic Assessment and Plan: Dr. Suarez evaluated the patient and has set up dialysis for today. Her creatinine this morning was 3.4, after dialysis yesterday. Will continue monitoring her renal function, urine output, monitor further during hospitalization. Nephrology is consult is greatly appreciated. (6) Anemia of chronic disease: Code(s): D63.8 - Anemia in other chronic diseases classified elsewhere Status: Acute Assessment and Plan: Patient's hemoglobin last admission was initially 11.3 and decreased to 9.9. On arrival the patient's hemoglobin was 9.4 and hematocrit was 32.9. Hemoglobin this morning was 8.7 and hematocrit was 30.4% stable. Dr. Suarez did give her Epogen with her dialysis yesterday Continue monitoring H&H. No acute signs of bleeding at this time. Transfuse as needed. (7) Hypertension: Code(s): I10 - Essential (primary) hypertension Status: Chronic Assessment and Plan: Patient's blood pressur
[2019-08-16 19:22] LABS: Glucose Point of Care 306 (65-105)
[2019-08-16] MEDS: INSULIN GLARGINE (*BKC) 100 UNITS/ML 20 UNITS SUB-Q (20:26)
[2019-08-16] MEDS: IMIPRAMINE HCL 25 MG TABLET PO (20:31)
[2019-08-16 22:27] LABS: Glucose Point of Care 343 (65-105)
[2019-08-17] VITALS (14 sets, daily range): BP systolic 144–152; BP diastolic 59–80; PULSE 68–96; RESP 16–20; TEMP 36.3–37.3; O2SAT 92–100
[2019-08-17] MEDS: ALBUTEROL SULFATE NEB 2.5 MG/0.5 ML INH 5 MG INHALATION ×4 (02:41→19:33)
[2019-08-17] MEDS: IPRATROPIUM BR 0.02% INH SOLN 0.5 MG/2.5 ML VIAL INHALATION ×4 (02:41→19:33)
[2019-08-17 05:14] LABS: Basophils Percent Auto 0.1 % (0.2-1.2); Hematocrit 28.5 % (37.0-47.0); Hemoglobin 8.5 g/dL (12.0-15.0); Immature Granulocyte Absolute 0.08 K/mm3 (0.00-0.031); Immature Granulocyte Percent A 0.8 % (0-0.5); Lymphocytes Absolute Auto 0.84 K/mm3 (0.9-3.2); Lymphocytes Percent Auto 8.2 % (18.3-44.2); Mean Corpuscular HGB Conc 29.8 g/dl (32-36); Mean Corpuscular Hemoglobin 31.7 pg (26-34); Mean Corpuscular Volume 106.3 fl (80-100); Mean Platelet Volume 11.8 fl (7.4-10.4); Monocytes Absolute Auto 0.7 K/mm3 (0.1-0.6); Monocytes Percent Auto 6.8 % (2.6-8.5); Neutrophils Absolute Auto 8.6 K/mm3 (1.3-6.7); Neutrophils Percent Auto 84.1 % (45.5-73.1); Platelet Count Result 193 k/mm3 (150-375); Red Blood Count 2.68 M/mm3 (4.2-5.4); Red Cell Distribution Width 16.8 % (11.5-14.5); White Blood Count 10.3 K/mm3 (4.5-10.0)
[2019-08-17 05:27] LABS: Albumin Level 3.2 g/dL (3.5-5.1); Blood Urea Nitrogen 55 mg/dL (7-17); Calcium 7.5 mg/dL (8.4-10.2); Carbon Dioxide 30 mmol/L (22-30); Chloride 88 mmol/L (98-107); Estimated CRCL calculation 8 ml/min; Estimated Glomerular Filt Rate 8; Glucose 282 mg/dL (65-105); Phosphorus 3.9 mg/dL (2.5-4.5); Potassium 4.4 mmol/L (3.4-5.0); Sodium 131 mmol/L (137-145)
[2019-08-17 07:20] LABS: Anisocytosis 1+ (NORMAL); Hypochromasia 1+ (NORMAL); Platelet Estimate Adequate (Adequate)
[2019-08-17 07:22] LABS: Macrocytosis 1+ (NORMAL)
[2019-08-17] MEDS: CINACALCET 30 MG TABLET PO (08:55)
[2019-08-17] MEDS: SEVELAMER CARBONATE 800 MG TABLET 1600 MG PO ×3 (08:55→17:46)
[2019-08-17] MEDS: ASPIRIN 81 MG CHEWABLE TABLET PO (08:56)
[2019-08-17] MEDS: carvediloL 12.5 MG TABLET PO ×2 (08:56→21:33)
[2019-08-17] MEDS: LOVASTATIN 20 MG TABLET PO (08:56)
[2019-08-17] MEDS: CYANOCOBALAMIN 500 MCG TABLET PO (08:56)
[2019-08-17] MEDS: LOSARTAN POTASSIUM 25 MG TABLET PO (08:56)
[2019-08-17] MEDS: MICONAZOLE NITRATE 2% CREAM 30 GM TUBE 1 APPLIC TOPICAL ×2 (08:57→17:47)
[2019-08-17] MEDS: predniSONE 10 MG TABLET 30 MG PO (08:57)
[2019-08-17] MEDS: VITAMIN B CMPLX/VIT C/FOLIC AC 1 CAPSULE 1 CAP PO (09:03)
[2019-08-17 11:35] LABS: Glucose Point of Care 169 (65-105)
--- NOTE | 2019-08-17 12:14 | PM.IMPN ---
Progress Note: A&P Assessment and Plan (1) Hallucinations: Code(s): R44.3 - Hallucinations, unspecified Status: Acute Assessment and Plan: The patient's caregiver states she is having hallucinations, confusion and more anxious. She states she is very sensitive to new medications but the only thing I had started yesterday was Spiriva after talking to the pathology lab technician about her breathing. I will discontinue the Spiriva at this time. She still has diffuse crackles and wheezing throughout anterior and posterior lung salazar. I am going to order a CT chest to rule out any underlying pneumonia from her influenza. She was on IV ceftriaxone for possible UTI but once her urine culture was negative I discontinued it. I also will order a UA with reflux culture. Continue monitoring patient's symptoms overnight and rule out any underlying infection. (2) Acute respiratory failure with hypoxia: Code(s): J96.01 - Acute respiratory failure with hypoxia Status: Acute Assessment and Plan: Could be secondary to acute influenza A, patient does have some wheezing in her lungs with inspiration expiration. Yesterday, Chest x-ray showed no acute pneumonia or abnormality. She is resting comfortably on room air today. She still has a cough and chest congestion. We will continue monitoring patient's respiratory status. Wean oxygen as tolerated. (3) Influenza A: Code(s): J10.1 - Influenza due to other identified influenza virus with other respiratory manifestations Status: Acute Assessment and Plan: With talking to the patient it seems that her symptoms began Sunday evening which is less than 24 hours prior to arrival. She was started on Tamiflu and will continue that for 5 days. Droplet precautions are initiated on the patient. He does have some weakness, fatigue, diaphoresis but is no longer required oxygen. Will continue monitoring her symptoms with conservative management and Tamiflu. (4) Acute bronchospasm: Code(s): J98.01 - Acute bronchospasm Status: Acute Assessment and Plan: Patient was having some wheezing which was improved after some breathing treatments and steroids. Secondary to upper respiratory infection and influenza. She was given a dose of IV steroids in the emergency department upon arrival. Today, she has more air movement but has increased wheezing with end inspiration and throughout expiration. Due to symptoms of hallucinations, and confusion today I will perform a CT scan of her chest to rule out any underlying pneumonia causing altered mental status. Continued on p.o. prednisone taper she started on 30 mg today for 2 days then 20 mg for 2 days then 10 mg for 2 days. Will continue monitoring her respiratory status with DuoNebs, oral prednisone, and oxygen as needed. (5) Cardiomegaly: Code(s): I51.7 - Cardiomegaly Status: Acute Assessment and Plan: The patient also has crackles noted to bilateral lung salazar, mostly to posterior aspect of her lungs. On CXR she does have Cardiomegaly. I do not see an echocardiogram in the patients chart and she could have some pulmonary edema causing some hypoxia and symptoms. Will order Echocardiogram to further evaluate her heart function. Continue monitoring respiratory status and fluid status. (6) End stage renal disease on dialysis: Code(s): N18.6 - End stage renal disease; Z99.2 - Dependence on renal dialysis Status: Chronic Assessment and Plan: Dr. Suarez evaluated the patient and has set up dialysis for today. Her creatinine this morning was 5.10 She is due for dialysis tomorrow. Will continue monitoring her renal function, urine output, monitor furth
[2019-08-17 12:54] LABS: Glucose Point of Care 175 (65-105)
--- NOTE | 2019-08-17 15:22 | PM.PNNEP ---
Progress Note: A&P Assessment and Plan (1) End stage renal disease on dialysis: Code(s): N18.6 - End stage renal disease; Z99.2 - Dependence on renal dialysis Status: Chronic Assessment and Plan: HD tomorrow and continue M/W/F schedule while hospitalized electrolytes, volume status, and clearance seem acceptable (2) Influenza A: Code(s): J10.1 - Influenza due to other identified influenza virus with other respiratory manifestations Status: Acute Assessment and Plan: as noted by positive flu swab on Tamiflu continue supportive therapy CT of chest ordered given persistent hypoxia (3) Anemia of chronic disease: Code(s): D63.8 - Anemia in other chronic diseases classified elsewhere Status: Acute Assessment and Plan: due to ESRD and possibly worsened by acute illness Epogen with HD follow trend of H/H (4) Hypertension: Code(s): I10 - Essential (primary) hypertension Status: Chronic Assessment and Plan: blood pressure under good control continue carvedilol and losartan follow trend of hemodynamics (5) Acute bronchospasm: Code(s): J98.01 - Acute bronchospasm Status: Acute Assessment and Plan: secondary to influenza on supplemental oxygen, nebulizer treatments, and steroids Will continue to follow. Subjective Date/time seen: 08/17/19 15:22 Respiratory status still not back to baseline -- CT of chest done today to evaluate for possible pneumonia; anxious for discharge but aware that breathing needs be better first. Exam Narrative: Exam Narrative: General: WD/WN female in NAD Heart: normal S1 and S2; no rub Lungs: coarse breath sounds with expiratory wheezes Abdomen: soft, nontender, nondistended, positive bowel sounds Extremities: no cyanosis or clubbing; no edema Skin: no rash Objective Data Vital Signs Vital Signs: Vital Signs Temp Pulse Resp BP Pulse Ox 08/17/19 14:20 73 20 08/17/19 14:05 95 20 08/17/19 14:00 36.3 C L 89 20 152/80 H 100 08/17/19 08:56 96 08/17/19 08:16 96 20 08/17/19 08:03 82 20 93 08/17/19 05:57 37.3 C 73 16 144/59 H 94 08/17/19 05:45 92 08/17/19 02:57 68 18 08/17/19 02:42 71 18 08/16/19 21:44 37.4 C 84 16 121/65 94 08/16/19 21:40 88 18 08/16/19 21:30 79 18 08/16/19 20:31 80 08/16/19 20:00 20 93 08/16/19 16:49 93 08/16/19 16:13 86 20 08/16/19 16:02 84 20 Intake/Output Intake/Output: Intake & Output 08/14/19 08/15/19 08/16/19 08/17/19 23:59 23:59 23:59 23:59 Intake Total 2180 1850 1270 Output Total 2700 0 Balance -520 1850 1270 Meds/Results Medications: Active Medications Generic Name Dose Route Start Last Admin Trade Name Freq PRN Reason Stop Dose Admin Albuterol 5 mg 08/15/19 02:00 08/17/19 14:04 Albuterol Sulf Neb 2.5mg/0.5ml INHALATION 5 mg Q6HRT THERESE Administration Aspirin 81 mg 08/15/19 09:00 08/17/19 08:56 Aspirin Chewable PO 81 mg DAILY THERESE Administration Budesonide/Formoterol Fumarate 2 puff 08/16/19 20:00 08/17/19 08:02 Symbicort 160-4.5 Mcg (*Sp) Inhaler INHALATION 2 puff Q12HRT THERESE Administration Carvedilol 12.5 mg 08/14/19 21:00 08/17/19 08:56 Coreg PO 12.5 mg Q12HR THERESE Administration Cinacalcet 30 mg 08/15/19 09:00 08/17/19 08:55 Sensipar PO 30 mg DAILY THERESE Administration Cyanocobalamin 500 mcg 08/15/19 09:00 08/17/19 08:56 Vitamin B-12 Tab PO 500 mcg DAILY THERESE Administration Dextrose 12.5 gm 08/14/19 18:51 Dextrose 50% Syringe IV PUSH PRN PRN Hypoglycemia Protocol Ergocalciferol 50,000 unit 08/21/19 09:00 Drisdol PO Th@0900 THERESE Glucagon 1 mg 08/14/19 18:51 Glucagon For Inj IM PRN PRN Hypoglycemia Protocol Glucose 15 gm 08/14/19 18:51 Glutose 15 PO PRN PRN Hypoglycemia P
[2019-08-17] MEDS: INSULIN ASPART (*BKC) 100 UNITS/ML SUB-Q (17:47)
[2019-08-17 17:58] LABS: Glucose Point of Care 287 (65-105)
[2019-08-17] MEDS: IMIPRAMINE HCL 25 MG TABLET PO (21:35)
[2019-08-17] MEDS: INSULIN GLARGINE (*BKC) 100 UNITS/ML 20 UNITS SUB-Q (21:35)
[2019-08-17 22:38] LABS: Glucose Point of Care 347 (65-105)
[2019-08-18] VITALS (26 sets, daily range): BP systolic 120–160; BP diastolic 50–82; PULSE 70–94; RESP 16–20; TEMP 36.3–37; O2SAT 96–98
--- NOTE | 2019-08-18 | ECHO_ITS ---
Patient Info Name: Shasta Obando Age: 74 years : 1945 Gender: Female Ht: 60 in Wt: 147 lbs BSA: 1.70 m2 HR: 71 bpm BP: 128 / 57 mmHg Heart Rhythm: Atrial Fibrillation Technical Quality: Good Exam Date: 08/18/2019 11:06 AM Exam Location: [facility] Pulmonary Exam Room: [facility] Patient Status: Inpatient Admit Date: 08/16/2019 Staff Ordering Physician: Jessica Lu PA-C Prevention Specialist: Magda Zamora RDCS Attending Provider: Jessica Lu PA-C Referring Physician: Tabitha ENRIQUE; Exam Type: CA echo doppler color flow Study Info Indications - hypoxia sob Complete two-dimensional, color flow and Doppler transthoracic echocardiogram is performed. Summary 1. Left ventricular systolic function is normal, estimated at 65-70%. 2. There is no increased left ventricular wall thickness. 3. The left ventricular diastolic function is indeterminate. Atrial fibrillation. 4. Right atrial chamber dimension is mildly enlarged. 5. Left atrial chamber dimension is mildly enlarged. 6. There is mild mitral valve regurgitation. 7. There is moderate tricuspid valve regurgitation. 8. Mild pulmonary hypertension, estimated pulmonary arterial systolic pressure is 39 mmHg. Left Ventricle Left ventricular chamber dimension is normal. Left ventricular systolic function is normal, estimated at 65-70%. There is no increased left ventricular wall thickness. The left ventricular diastolic function is indeterminate. Atrial fibrillation. Right Ventricle Right ventricular chamber dimension is normal. Right ventricular systolic function is normal. Prominent moderator band, normal variant. Left Atria Left atrial chamber dimension is mildly enlarged. Right Atria Right atrial chamber dimension is mildly enlarged. Aortic Valve The aortic valve is probable trileaflet. There is mild aortic valve sclerosis. There is no aortic valve stenosis. There is trace aortic valve regurgitation. Pulmonic Valve The pulmonic valve is not well visualized. There is trace pulmonic regurgitation. Mitral Valve The mitral valve has thickened leaflets. There is mild mitral valve regurgitation. The mitral valve annulus is mildly calcified. Tricuspid Valve The tricuspid valve leaflets are normal. There is moderate tricuspid valve regurgitation. Mild pulmonary hypertension, estimated pulmonary arterial systolic pressure is 39 mmHg. Pericardium/Pleural The pericardium appears normal. There is no pericardial effusion. Inferior Vena Cava Normal inferior vena cava with >50% collapse upon inspiration consistent with normal right atrial pressure, 5 mmHg. Aorta The aortic root size at the sinus of Valsalva is normal. Left Ventricular Outflow Tract Name Value Normal LVOT 2D LVOT Diameter 2.0 cm LVOT Doppler LVOT Peak Gradient 5 mmHg LVOT Mean Gradient 3 mmHg LVOT VTI 22 cm LVOT VTI/AV VTI Ratio 1.1 LVOT Stroke Volume 67 ml LVOT CO
[2019-08-18] MEDS: ALBUTEROL SULFATE NEB 2.5 MG/0.5 ML INH 5 MG INHALATION ×3 (02:34→14:52)
[2019-08-18] MEDS: IPRATROPIUM BR 0.02% INH SOLN 0.5 MG/2.5 ML VIAL INHALATION ×3 (02:34→14:52)
[2019-08-18 06:06] LABS: Basophils Percent Auto 0.1 % (0.2-1.2); Hematocrit 32.2 % (37.0-47.0); Hemoglobin 9.1 g/dL (12.0-15.0); Immature Granulocyte Absolute 0.08 K/mm3 (0.00-0.031); Immature Granulocyte Percent A 0.8 % (0-0.5); Lymphocytes Absolute Auto 1.08 K/mm3 (0.9-3.2); Lymphocytes Percent Auto 11.2 % (18.3-44.2); Mean Corpuscular HGB Conc 28.3 g/dl (32-36); Mean Corpuscular Hemoglobin 31.5 pg (26-34); Mean Corpuscular Volume 111.4 fl (80-100); Mean Platelet Volume 12.6 fl (7.4-10.4); Monocytes Absolute Auto 0.7 K/mm3 (0.1-0.6); Monocytes Percent Auto 7.3 % (2.6-8.5); Neutrophils Absolute Auto 7.8 K/mm3 (1.3-6.7); Neutrophils Percent Auto 80.6 % (45.5-73.1); Platelet Count Result 161 k/mm3 (150-375); Red Blood Count 2.89 M/mm3 (4.2-5.4); Red Cell Distribution Width 16.9 % (11.5-14.5); White Blood Count 9.7 K/mm3 (4.5-10.0)
[2019-08-18] MEDS: ASPIRIN 81 MG CHEWABLE TABLET PO (08:22)
[2019-08-18] MEDS: LOSARTAN POTASSIUM 25 MG TABLET PO (08:22)
[2019-08-18] MEDS: CYANOCOBALAMIN 500 MCG TABLET PO (08:22)
[2019-08-18] MEDS: SEVELAMER CARBONATE 800 MG TABLET 1600 MG PO ×2 (08:22→12:31)
[2019-08-18] MEDS: CINACALCET 30 MG TABLET PO (08:23)
[2019-08-18] MEDS: carvediloL 12.5 MG TABLET PO (08:23)
[2019-08-18] MEDS: LOVASTATIN 20 MG TABLET PO (08:23)
[2019-08-18] MEDS: VITAMIN B CMPLX/VIT C/FOLIC AC 1 CAPSULE 1 CAP PO (08:24)
[2019-08-18] MEDS: predniSONE 10 MG TABLET 30 MG PO (08:24)
[2019-08-18] MEDS: MICONAZOLE NITRATE 2% CREAM 30 GM TUBE 1 APPLIC TOPICAL (08:28)
[2019-08-18 08:38] LABS: Albumin Level 3.6 g/dL (3.5-5.1); Blood Urea Nitrogen 86 mg/dL (7-17); Calcium 7.7 mg/dL (8.4-10.2); Carbon Dioxide 28 mmol/L (22-30); Chloride 87 mmol/L (98-107); Estimated CRCL calculation 6 ml/min; Estimated Glomerular Filt Rate 6; Glucose 128 mg/dL (65-105); Phosphorus 4.4 mg/dL (2.5-4.5); Potassium 4.5 mmol/L (3.4-5.0); Sodium 131 mmol/L (137-145)
[2019-08-18 10:51] LABS: Glucose Point of Care 123 (65-105)
[2019-08-18 12:22] LABS: Glucose Point of Care 336 (65-105)
[2019-08-18] MEDS: INSULIN ASPART (*BKC) 100 UNITS/ML SUB-Q (12:30)
--- NOTE | 2019-08-18 13:27 | PM.DS ---
DS: Diagnosis Admitting Diagnosis Admitting Diagnosis: Influenza due to other identified influenza virus with other respiratory manifestations Discharge Diagnosis (1) Hallucinations: Code(s): R44.3 - Hallucinations, unspecified Status: Acute Assessment and Plan: 08/17/2019: The patient's caregiver states she is having hallucinations, confusion and more anxious. She states she is very sensitive to new medications but the only thing I had started yesterday was Spiriva after talking to the manager renewable energy about her breathing. I will discontinue the Spiriva at this time. Today she is back to baseline. She is feeling much better today. She is A&O x4, seems relaxed and doing well. CT chest showed no acute pneumonia at this time. Urinalysis was unable to be completed since the patient only urinates about once a day. Her urinalysis on arrival showed no growth in since she is back to normal and denies any urinary symptoms at this time we will not check this UA. The patient is going to be returning home with her caregiver after dialysis. The caregiver were monitor for any acute changes. (2) Acute respiratory failure with hypoxia: Code(s): J96.01 - Acute respiratory failure with hypoxia Status: Acute Assessment and Plan: Could be secondary to acute influenza A. 08/16/2019: Chest x-ray showed no acute pneumonia or abnormality. 08/17/2019: CT chest showed no acute pneumonia or edema that would cause any hypoxia. She is feeling much better at this time and is resting comfortably on room air. She still has a cough and chest congestion. (3) Influenza A: Code(s): J10.1 - Influenza due to other identified influenza virus with other respiratory manifestations Status: Acute Assessment and Plan: With talking to the patient it seems that her symptoms began Sunday evening which is less than 24 hours prior to arrival. She was started on Tamiflu and will continue that for 5 days. The patient was started on Tamiflu upon arrival which is renally dosed with dialysis. The family is concerned that the Tamiflu could be the cause of her confusion yesterday. I will discontinue her Tamiflu use at this time. She overall is feeling much better today. Still having a productive cough but no shortness of breath, chest pain, fevers, chills and is getting around well with therapy. She will return home with her caregiver. (4) Acute bronchospasm: Code(s): J98.01 - Acute bronchospasm Status: Acute Assessment and Plan: Patient was having some wheezing which was improved after some breathing treatments and steroids. Secondary to upper respiratory infection and influenza. She was given a dose of IV steroids in the emergency department upon arrival. Today, she has more air movement and with end inspiration and throughout expiration crackles which is most likely consistent with her bronchitis and mucus production. She did not have any underlying pneumonia Will discharge her on continued prednisone taper, Mucinex, albuterol inhaler as needed for wheezing or shortness of breath and have her follow-up with her primary care within 1 week. (5) Cardiomegaly: Code(s): I51.7 - Cardiomegaly Status: Acute Assessment and Plan: The patient also has crackles noted to bilateral lung salazar, mostly to posterior aspect of her lungs. On CXR she does have Cardiomegaly. Patient had echocardiogram ordered and completed today showing Will have her follow-up with her gridcap machine operator Dr. Seay in the next few weeks. (6) End stage renal disease on dialysis: Code(s): N18.6 - End stage renal disease; Z99.2 - Dependence on renal dialysis Status: Chronic
--- NOTE | 2019-08-18 13:40 | PCPTNOTE ---
Pt out of room for dialysis.
--- NOTE | 2019-08-18 14:01 | PCCCNOTE ---
On 08/18/19, the student, [Hollie Case ], provided care and completed [facility] hospital documentation on this patient. I have reviewed the student's documentation and agree with the findings.
[2019-08-18] MEDS: EPOETIN ALFA 10,000 UNITS/ML VIAL 10000 UNITS IV PUSH (16:21)
--- NOTE | 2019-08-18 16:22 | PM.PNNEP ---
Progress Note: A&P Assessment and Plan (1) End stage renal disease on dialysis: Code(s): N18.6 - End stage renal disease; Z99.2 - Dependence on renal dialysis Status: Chronic Assessment and Plan: HD today and continue M/W/F schedule while hospitalized electrolytes, volume status, and clearance seem acceptable (2) Influenza A: Code(s): J10.1 - Influenza due to other identified influenza virus with other respiratory manifestations Status: Acute Assessment and Plan: as noted by positive flu swab on Tamiflu continue supportive therapy CT of chest results noted (3) Anemia of chronic disease: Code(s): D63.8 - Anemia in other chronic diseases classified elsewhere Status: Acute Assessment and Plan: due to ESRD and possibly worsened by acute illness Epogen with HD follow trend of H/H (4) Hypertension: Code(s): I10 - Essential (primary) hypertension Status: Chronic Assessment and Plan: blood pressure under good control continue carvedilol and losartan follow trend of hemodynamics (5) Acute bronchospasm: Code(s): J98.01 - Acute bronchospasm Status: Acute Assessment and Plan: secondary to influenza on supplemental oxygen, nebulizer treatments, and steroids Will continue to follow -- not opposed to discharge from renal perspective. Subjective Date/time seen: 08/18/19 16:22 Tolerating dialysis treatment without any issues or probelms; breathing/respiratory status seems be doing quite well; off oxygen at this time; noted plans for discharge when dialysis complete. Exam Narrative: Exam Narrative: General: WD/WN female in NAD Heart: normal S1 and S2; no rub Lungs: coarse breath sounds with expiratory wheezes Abdomen: soft, nontender, nondistended, positive bowel sounds Extremities: no cyanosis or clubbing; no edema Skin: no nodules Objective Data Vital Signs Vital Signs: Vital Signs Temp Pulse Resp BP Pulse Ox 08/18/19 16:15 85 130/68 08/18/19 16:00 85 145/67 H 08/18/19 15:45 92 137/68 08/18/19 15:30 89 127/71 08/18/19 15:15 83 141/50 H 08/18/19 15:02 92 18 08/18/19 15:00 94 127/72 08/18/19 14:52 90 18 08/18/19 14:45 81 126/66 08/18/19 14:30 78 120/63 08/18/19 14:15 88 126/63 08/18/19 14:01 83 126/61 08/18/19 13:37 36.3 C L 70 20 132/58 L 08/18/19 08:23 71 08/18/19 08:19 85 18 08/18/19 08:09 81 18 98 08/18/19 05:58 36.4 C 71 18 128/57 L 96 08/18/19 02:34 71 18 08/17/19 22:00 36.8 C 83 18 152/67 H 96 08/17/19 21:33 70 08/17/19 19:42 81 16 08/17/19 19:33 82 16 98 Intake/Output Intake/Output: Intake & Output 08/15/19 08/16/19 08/17/19 08/18/19 23:59 23:59 23:59 23:59 Intake Total 2180 1850 2170 780 Output Total 2700 0 30 0 Balance -520 1850 2140 780 Meds/Results Medications: Active Medications Generic Name Dose Route Start Last Admin Trade Name Freq PRN Reason Stop Dose Admin Albuterol 5 mg 08/15/19 02:00 08/18/19 14:52 Albuterol Sulf Neb 2.5mg/0.5ml INHALATION 5 mg Q6HRT THERESE Administration Aspirin 81 mg 08/15/19 09:00 08/18/19 08:22 Aspirin Chewable PO 81 mg DAILY THERESE Administration Carvedilol 12.5 mg 08/14/19 21:00 08/18/19 08:23 Coreg PO 12.5 mg Q12HR THERESE Administration Cinacalcet 30 mg 08/15/19 09:00 08/18/19 08:23 Sensipar PO 30 mg DAILY THERESE Administration Cyanocobalamin 500 mcg 08/15/19 09:00 08/18/19 08:22 Vitamin B-12 Tab PO 500 mcg DAILY THERESE Administration Dextrose 12.5 gm 08/14/19 18:51 Dextrose 50% Syringe IV PUSH PRN PRN Hypoglycemia Protocol Epoetin Son 10,000 units 08/18/19 19:00 08/18/19 16:21 Epogen IV PUSH 08/18/19 19:01 10,000 units ONCE ONE Administration Ergocalciferol 50,000 unit 08/21/19 09:00 Elvis WILCOX Th@0900 THERESE
--- NOTE | 2019-08-18 18:10 | ECG_ITS ---
Measurements Intervals [place] Rate: 91 P: CO: 0 QRS: 64 QRSD: 78 T: 89 QT: 338 QTc: 416 Interpretive Statements ATRIAL FIBRILLATION CANNOT RULE OUT SEPTAL INFARCT, AGE INDETERMINATE BORDERLINE ST-T WAVE ABNORMALITY- INF/LAT LEADS BASELINE ARTIFACT- I, II, III, AVR, AVL, AVF, V3-V4 ABNORMAL ECG Electronically Signed On 08-18-2019 19:47:19 GENERAL ACTIVITIES THERAPIST by Danny Soliz D.O.
== END 2019-08-18 19:09 | disposition home or self-care (01) | DRG 193 ==
LOC: ANHED 16:26 → ANH2MED 17:34
PROVIDERS: Internal Medicine Nephrology; Physician Assistant; Admitting Provider Family Medicine; Emergency Provider Emergency Medicine; PCP Family Medicine; Visit Provider Internal Medicine
DX: J10.1 Influenza due to other identified influenza virus with other respiratory manifestations (principal); J96.01 Acute respiratory failure with hypoxia; N18.6 End stage renal disease; I12.0 Hypertensive chronic kidney disease with stage 5 chronic kidney disease or end stage renal disease; E87.1 Hypo-osmolality and hyponatremia; R44.3 Hallucinations, unspecified; E11.22 Type 2 diabetes mellitus with diabetic chronic kidney disease; J98.01 Acute bronchospasm; I48.0 Paroxysmal atrial fibrillation; D63.1 Anemia in chronic kidney disease; I51.7 Cardiomegaly; R91.1 Solitary pulmonary nodule; I71.2 Thoracic aortic aneurysm, without rupture; E87.5 Hyperkalemia; M17.0 Bilateral primary osteoarthritis of knee; M81.0 Age-related osteoporosis without current pathological fracture; N25.0 Renal osteodystrophy; E78.5 Hyperlipidemia, unspecified; Z96.651 Presence of right artificial knee joint; Z99.2 Dependence on renal dialysis; Z98.42 Cataract extraction status, left eye; Z98.41 Cataract extraction status, right eye
CPT/HCPCS: 36415; 36600; 51701; 71046; 71250; 80048; 80053; 80069; 81001; 82805; 83605; 85025; 85027; 85610; 85730; 86140; 87040; 87086; 87804; 93005; 93306; 94640; 94667; 96374; 96375; 97116; 97161; 97165; 99291; A9270; G0257; G0378; J1815; J1956; J2930; J7030; J7512; Q4081

== ENCOUNTER 2019-08-20 13:25 | Inpatient (IN) | payer MEDICARE, MEDICAID, SELFPAY ==
[2019-08-20] VITALS (9 sets, daily range): BP systolic 98–136; BP diastolic 46–89; PULSE 67–87; RESP 16–24; TEMP 36.6–37.6; O2SAT 93–100; BMI 22.9
--- NOTE | ~2019-08-20 | XR_ITS ---
EXAMINATION: XR chest 1V portable INDICATION: Shortness of breath and cough TECHNIQUE: Portable AP chest at 1715 hours COMPARISON: 08/16/2019 FINDINGS: Cardiomegaly is noted. Also seen is an occlusion device of the atrial appendage. The lungs are free of acute opacities. There is no pleural effusion or pneumothorax. A vascular stent is noted in the left upper extremity. IMPRESSION: 1. No acute cardiopulmonary abnormality. 2. Cardiomegaly. Reviewed, dictated and finalized at location A. 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
[2019-08-20 16:24] LABS: Glucose Point of Care 268 (65-105)
--- NOTE | 2019-08-20 16:44 | ED.SOB ---
HPI - SOB/Dyspnea General Chief Complaint: Shortness of Breath/Dyspnea Stated Complaint: shortness of breath Time Seen by Provider: 08/20/19 16:41 Source: patient Mode of arrival: wheelchair Limitations: no limitations History of Present Illness HPI Narrative: The pt is a 74 y/o female who presents to the ED c/o SOB onset one day ago. Pt states that she was here last week and tested positive for flu, and received an Albuterol inhaler. Pt states that while she was at dialysis today, she was told to come to the ED due to her condition. The pt reports cough, congestion, and confusion, but denies fever. Pt notes that she did not try nebulizers or anything else, but did try her Albuterol without relief. 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 Suarez. elicited complaint: shortness of breath Onset (ago): day(s) (1) Context: recent illness (Flu) Relieving factors: nothing Associated symptoms: cough and other (Confusion, congestion) Treatment prior to arrival: bronchodilator (Albuterol) Related Data Home Medications Medication Instructions Recorded Confirmed Januvia 100 mg PO DAILY 06/12/19 08/14/19 Prolia 60 mg SUBCUT [id number] 06/12/19 08/14/19 aspirin 81 mg PO BID 06/12/19 08/15/19 carvedilol 12.5 mg PO BID 06/12/19 08/14/19 clotrimazole 1 applic TOPICAL BID 06/12/19 08/14/19 cyanocobalamin (vitamin B-12) 500 mcg PO DAILY 06/12/19 08/14/19 sevelamer carbonate [Renvela] 2,400 mg PO TID 06/12/19 08/15/19 Victoza 2-Agustín 1.8 mg SUB-Q HS 07/28/19 08/14/19 imipramine HCl 50 mg PO HS 07/28/19 08/15/19 Renal Caps 1 cap PO DAILY 08/15/19 08/15/19 lidocaine-prilocaine 1 applic TOPICAL ONCE 08/15/19 08/15/19 Allergies Allergy/AdvReac Type Severity Reaction Status Date / Time cefazolin Allergy Mild nausea/dizz Verified 08/07/19 11:05 iness enalapril Allergy Unknown cough Verified 01/30/20 11:05 pioglitazone Allergy Unknown Unknown Verified 08/07/19 11:05 tramadol Allergy Unknown hallucinati Verified 08/07/19 11:05 ons Review of Systems Review of Systems: All systems reviewed & are unremarkable except as noted in HPI and below Constitutional: Constitutional: Denies fever(s) ENT: Reports nasal congestion Respiratory: Respiratory: Reports cough and Reports dyspnea Neurologic: Reports confusion PMFSH Past Medical History Medical History Anemia of chronic disease AV fistula Closed fracture of lateral portion of right tibial plateau (~2014) End stage renal disease on dialysis Dialysis days are Sunday, Sunday, and Sunday. She is on the transplant list at [place]. Hyperlipidemia Hypertension Osteoarthritis of both knees Osteoporosis Paroxysmal atrial fibrillation Presence of Watchman left atrial appendage closure device Staphylococcal septicemia (~2013) Type 2 diabetes mellitus Hemoglobin A1c was 6.6 in July 2019. Surgical History Surgical History History of arthroplasty of right ankle History of arthroscopy (~12/07/12) wrist History of cataract extraction History of colonoscopy (~12/02/15) History of knee replacement (~2015) right Family History Family History Father Hypertension Family history of cardiovascular disease Mother Hypertension Diabetes mellitus Family history of lung cancer Sibling Family history of cardiovascular disease Social History Social History (Updated 08/20/19 @ 16:52 by Nir Leahy) Social History: The patient is and lives in [place]. She is originally from [place]. 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 She has 2 daughters who live in [place]. She has 1 son who lives in [facility]. She designates her daughters as her surrogate decision makers and she wishes to be a full code. She is a lifelong nonsmoker. No alcohol or drug abuse. Smoking status: Never s
[2019-08-20] MEDS: ALBUTEROL SULFATE NEB 2.5 MG/0.5 ML INH 5 MG INHALATION (17:04)
[2019-08-20] MEDS: IPRATROPIUM BR 0.02% INH SOLN 0.5 MG/2.5 ML VIAL INHALATION (17:04)
[2019-08-20 17:12] LABS: Basophils Percent Auto 0.1 % (0.2-1.2); Eosinophils Percent Auto 0.1 % (0-4.4); Hematocrit 31.6 % (37.0-47.0); Hemoglobin 9.1 g/dL (12.0-15.0); Immature Granulocyte Absolute 0.18 K/mm3 (0.00-0.031); Immature Granulocyte Percent A 1.1 % (0-0.5); Lymphocytes Percent Auto 9.3 % (18.3-44.2); Mean Corpuscular HGB Conc 28.8 g/dl (32-36); Mean Corpuscular Hemoglobin 30.6 pg (26-34); Mean Corpuscular Volume 106.4 fl (80-100); Mean Platelet Volume 11.7 fl (7.4-10.4); Monocytes Absolute Auto 0.7 K/mm3 (0.1-0.6); Monocytes Percent Auto 4.4 % (2.6-8.5); Neutrophils Absolute Auto 13.7 K/mm3 (1.3-6.7); Nucleated Red Blood Cells Perc 0.2 % (0.0-0.2); Platelet Count Result 203 k/mm3 (150-375); Red Blood Count 2.97 M/mm3 (4.2-5.4); Red Cell Distribution Width 16.4 % (11.5-14.5); White Blood Count 16.1 K/mm3 (4.5-10.0)
[2019-08-20 17:20] LABS: Hypochromasia 1+ (NORMAL); Platelet Estimate Adequate (Adequate)
[2019-08-20 17:24] LABS: Alanine Aminotransferase 17 U/L (4-35); Albumin Level 3.5 g/dL (3.5-5.1); Alkaline Phosphatase 202 U/L (38-126); Aspartate Amino Transferase 23 U/L (14-36); Blood Urea Nitrogen 28 mg/dL (7-17); Calcium 7.9 mg/dL (8.4-10.2); Carbon Dioxide 26 mmol/L (22-30); Chloride 91 mmol/L (98-107); Estimated CRCL calculation 14 ml/min; Estimated Glomerular Filt Rate 16; Glucose 279 mg/dL (65-105); Potassium 4.2 mmol/L (3.4-5.0); Sodium 133 mmol/L (137-145)
--- NOTE | 2019-08-20 19:49 | PC.NURSE ---
REPORT TAKEN FROM ABENA CHAHAL AT THIS TIME.
--- NOTE | 2019-08-20 21:26 | ADMGEN ---
This patient, Shasta Obando, was admitted to 3 [facility] Surg Room 323-02. Patient/family oriented to hospital policies and general routines including ID bracelet, bed and alarms, visiting hours, pain management, procedures, bathroom and other care routines, personal items, smoking policy, room service/diet, and visiting hours. Valuables list has been completed. Information on how to activate the Rapid Response Team has been discussed. Patient/Family are encouraged to report perceived risks to care and to ask questions if they do not understand what they are told or what they should do.
[2019-08-21] VITALS (9 sets, daily range): BP systolic 101–132; BP diastolic 55–72; PULSE 66–97; RESP 16–18; TEMP 36.3–36.6; O2SAT 94–98
[2019-08-21 00:39] LABS: Glucose Point of Care 251 (65-105)
[2019-08-21 07:51] LABS: Glucose Point of Care 274 (65-105)
[2019-08-21] MEDS: INSULIN ASPART (*BKC) 100 UNITS/ML SUB-Q ×4 (08:11→17:28)
[2019-08-21] MEDS: ACETAMINOPHEN 325 MG TABLET 650 MG PO (08:17)
[2019-08-21 08:39] LABS: Hematocrit 32.1 % (37.0-47.0); Hemoglobin 9.4 g/dL (12.0-15.0); Mean Corpuscular HGB Conc 29.3 g/dl (32-36); Mean Corpuscular Hemoglobin 31.1 pg (26-34); Mean Corpuscular Volume 106.3 fl (80-100); Mean Platelet Volume 11.7 fl (7.4-10.4); Platelet Count Result 222 k/mm3 (150-375); Red Blood Count 3.02 M/mm3 (4.2-5.4); Red Cell Distribution Width 16.7 % (11.5-14.5); White Blood Count 16.7 K/mm3 (4.5-10.0)
[2019-08-21 08:58] LABS: Blood Urea Nitrogen 40 mg/dL (7-17); Calcium 7.7 mg/dL (8.4-10.2); Carbon Dioxide 27 mmol/L (22-30); Chloride 90 mmol/L (98-107); Estimated CRCL calculation 9 ml/min; Estimated Glomerular Filt Rate 10; Glucose 339 mg/dL (65-105); Magnesium 2.3 mg/dL (1.6-2.3); Phosphorus 3.4 mg/dL (2.5-4.5); Sodium 134 mmol/L (137-145)
[2019-08-21] MEDS: ALBUTEROL SULFATE NEB 2.5 MG/0.5 ML INH 5 MG INHALATION ×3 (09:00→22:22)
[2019-08-21] MEDS: IPRATROPIUM BR 0.02% INH SOLN 0.5 MG/2.5 ML VIAL INHALATION ×3 (09:01→22:18)
[2019-08-21] MEDS: ASPIRIN 81 MG CHEWABLE TABLET PO ×2 (10:13→17:30)
[2019-08-21] MEDS: VITAMIN B CMPLX/VIT C/FOLIC AC 1 CAPSULE 1 CAP PO (10:14)
[2019-08-21] MEDS: CINACALCET 30 MG TABLET PO (10:14)
[2019-08-21] MEDS: SEVELAMER CARBONATE 800 MG TABLET 2400 MG PO ×3 (10:14→17:30)
[2019-08-21] MEDS: carvediloL 12.5 MG TABLET PO (10:15)
[2019-08-21] MEDS: CYANOCOBALAMIN 500 MCG TABLET PO (10:15)
[2019-08-21 11:12] LABS: Glucose Point of Care 281 (65-105)
--- NOTE | 2019-08-21 12:23 | PM.IMHP ---
H&P: HPI History of Present Illness Chief complaint: Shortness of breath Narrative: Date of Service 08/21/19 The supervising physician for this history physical is Dr. Gardner. Ms. Javad Obando is a pleasant 74yo F with end-stage renal disease on hemodialysis MWF; hypertension, type 2 diabetes mellitus, and several other comorbidities who presented to emergency department for evaluation of shortness of breath, cough and weakness. Her caregiver at the bedside notes her to be more confused since she has been sick. She was just discharged this week after having been admitted from 08/14/19 - 08/18/19 when she was treated for acute respiratory failure and diagnosed with influenza. She reports she was feeling better at time of discharge however began to have more coughing and shortness of breath in the days after being discharged. She reports coughing thick yellow phlegm and shortness of breath is worse with walking. Denies any chest pain or calf tenderness. She reports she is eating well without nausea, vomiting, or abdominal pain. She was brought to dialysis yesterday on her normal schedule and the caregiver at the bedside notes that the dialysis nurses suggested she return to the ER for evaluation. Chest x-ray shows no acute cardiopulmonary abnormality, cardiomegaly. Routine labs revealed leukocytosis with WBC 90036, chronic macrocytic anemia, and elevated BUN and Cr that appear near her baseline. She is admitted to observation for management of persistent upper respiratory symptoms and altered mental status. Review of Systems Review of Systems: Narrative: She reports a productive cough with yellow mucus; denies chest pain or calf tenderness. No dizziness or headaches. She reports she has not had a bowel movement in a few days. She denies nausea or vomiting and has been tolerating oral intake. Twelve systems were reviewed with pertinent positives and negatives as per HPI. [facility] Past Medical History Medical History Anemia of chronic disease AV fistula Closed fracture of lateral portion of right tibial plateau (~2014) End stage renal disease on dialysis Dialysis days are Sunday, Sunday, and Sunday. She is on the transplant list at [place]. Hyperlipidemia Hypertension Osteoarthritis of both knees Osteoporosis Paroxysmal atrial fibrillation Presence of Watchman left atrial appendage closure device Staphylococcal septicemia (~2013) Type 2 diabetes mellitus Hemoglobin A1c was 6.6 in July 2019. Surgical History Surgical History History of arthroplasty of right ankle History of arthroscopy (~12/07/12) wrist History of cataract extraction History of colonoscopy (~12/02/15) History of knee replacement (~2015) right Family History Family History Father Hypertension Family history of cardiovascular disease Mother Hypertension Diabetes mellitus Family history of lung cancer Sibling Family history of cardiovascular disease Social History Social History Social History: The patient is and lives in [place]. She is originally from [place]. 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 She has 1 son who lives in [facility]. She designates her daughters as her surrogate decision makers and she wishes to be a full code. She is a lifelong nonsmoker. No alcohol or drug abuse. Smoking status: Never smoker Alcohol intake: never Substance use: never Gender identity (if verbalized by the patient): Female Spiritual care concerns: No Agree to blood products: Yes Meds Home Medications and Allergies Home Medications Medication Instructions Recorded Confirmed Type Januvia 100 mg PO DAILY 06/12/19
[2019-08-21 12:24] LABS: Glucose Point of Care 386 (65-105)
--- NOTE | 2019-08-21 17:23 | PM.CNNEP ---
Assessment and Plan Assessment and plan (1) End stage renal disease: Code(s): N18.6 - End stage renal disease Status: Acute (2) Acute viral syndrome: Code(s): B34.9 - Viral infection, unspecified Status: Acute (3) Hallucinations: Code(s): R44.3 - Hallucinations, unspecified Status: Acute (4) Anemia: Code(s): D64.9 - Anemia, unspecified Status: Chronic (5) Hypertension: Qualifiers: Hypertension type: unspecified Qualified Code(s): I10 - Essential (primary) hypertension Code(s): I10 - Essential (primary) hypertension Status: Chronic Assessment and Plan: . Additional Plan Shasta has end-stage renal disease and what appears to be a protracted recovery with regard to her influenza infection. She is due for dialysis tomorrow and I will ensure that this occurs -- I will continue her on her Sunday outpatient schedule while she remains hospitalized. Her CKD parameters with regard to her blood pressure, anemia, renal osteodystrophy...etc are under reasonable control and I will contiune to follow the trend of these parameters while she remains hospitalized and make further adjustments to her dialysis prescription and medications as deemed necessary I agree with continuing supportive measures in terms of supplemental oxygen, nebulizer treatments, cough medicines...etc untill her respiratory illness starts to improve from a symptom standpoint. I will continue to follow the patient with you while she remains hospitalized and make further recommendations during her hospital course. Thank you for allowing me to participate in the care this patient. History of Present Illness Reason for Consult Consult date: 08/21/19 Reason for consult: end stage renal disease Chief Complaint Chief complaint: Shortness of breath History of Present Illness Narrative: The patient is a pleasant 74 year old female with a past medical history as outlined below who presented to emergency department for evaluation of shortness of breath, cough and weakness. The patient was just discharged this week after having been treated for acute respiratory failure due to influenza. She reports she was feeling better at time of discharge however began to have more coughing and shortness of breath in the days after being discharged. She reports a productive cough of thick yellow phlegm along with shortness of breath that is worse with exertional activity. She denies chest pain, nausea, vomiting, or abdominal pain. Work-up and evaluation in the ER demonstrated a chest x-ray with no acute cardiopulmonary abnormality and routine labs revealed an elevated WBC, chronic anemia, and labs consistent with her known history of ESRD. She was subsequently admitted to the hospital for further evaluation and therapy. Renal consultation was requested due to her end-stage renal disease. The patient normally dialyzes at [facility] dialysis of the care of Dr. Jacob Suarez on a Sunday was a Sunday schedule. Her last dialysis treatment was on Sunday and tolerated reasonably well. She has no critical electrolyte abnormalities and her volume status appears to be stable so I think she can wait for her next dialysis treatment tomorrow to maintain her Sunday schedule. Currently, she states she does feel little bit better with all the interventions that have been done since admission but still states her respiratory status is not back to baseline. Review of Systems Review of Systems: Narrative: As per HPI. [facility] Past Medical History Medical History Anemia of chronic disease AV fistula Closed fracture of lateral portion of right tibial plateau (~2014) End stage renal disease on dialysis Dialysis days are Sunday, Sunday, and Sunday. She is on the transplant list at [place]. Hyperlipidemia Hypertension Osteoarthr
[2019-08-21 17:26] LABS: Glucose Point of Care 242 (65-105)
[2019-08-21] MEDS: polyethylene glycoL 3350 17 GM POWD.PACK PO (17:29)
[2019-08-21] MEDS: LOSARTAN POTASSIUM 25 MG TABLET PO (22:09)
[2019-08-21] MEDS: LOVASTATIN 20 MG TABLET PO (22:09)
[2019-08-21 22:18] LABS: Glucose Point of Care 254 (65-105)
[2019-08-21] MEDS: DORNASE ALFA INH SOLN 1 MG/ML 2.5 ML AMP 2.5 MG INHALATION (22:22)
[2019-08-22] VITALS (27 sets, daily range): BP systolic 91–142; BP diastolic 34–64; PULSE 59–106; RESP 16–20; TEMP 35.5–36.9; O2SAT 91–97
[2019-08-22] MEDS: ALBUTEROL SULFATE NEB 2.5 MG/0.5 ML INH 5 MG INHALATION ×4 (03:12→22:55)
[2019-08-22] MEDS: IPRATROPIUM BR 0.02% INH SOLN 0.5 MG/2.5 ML VIAL INHALATION ×4 (03:13→22:55)
[2019-08-22 06:02] LABS: Hematocrit 29.2 % (37.0-47.0); Hemoglobin 8.7 g/dL (12.0-15.0); Mean Corpuscular HGB Conc 29.8 g/dl (32-36); Mean Corpuscular Hemoglobin 30.9 pg (26-34); Mean Corpuscular Volume 103.5 fl (80-100); Mean Platelet Volume 11.8 fl (7.4-10.4); Platelet Count Result 212 k/mm3 (150-375); Red Blood Count 2.82 M/mm3 (4.2-5.4); Red Cell Distribution Width 16.6 % (11.5-14.5); White Blood Count 16.5 K/mm3 (4.5-10.0)
[2019-08-22 06:35] LABS: Albumin Level 2.9 g/dL (3.5-5.1); Blood Urea Nitrogen 56 mg/dL (7-17); Calcium 6.9 mg/dL (8.4-10.2); Carbon Dioxide 24 mmol/L (22-30); Chloride 95 mmol/L (98-107); Estimated CRCL calculation 7 ml/min; Estimated Glomerular Filt Rate 7; Glucose 244 mg/dL (65-105); Magnesium 2.4 mg/dL (1.6-2.3); Potassium 4.3 mmol/L (3.4-5.0); Sodium 133 mmol/L (137-145)
[2019-08-22 08:03] LABS: Glucose Point of Care 269 (65-105)
--- NOTE | 2019-08-22 08:08 | PHAR ---
PT INFO SHEET SENT WITH FIRST DOSE OF EPOGEN
[2019-08-22] MEDS: SEVELAMER CARBONATE 800 MG TABLET 2400 MG PO ×3 (08:20→18:29)
[2019-08-22] MEDS: CYANOCOBALAMIN 500 MCG TABLET PO (08:20)
[2019-08-22] MEDS: ASPIRIN 81 MG CHEWABLE TABLET PO ×2 (08:21→18:30)
[2019-08-22] MEDS: CINACALCET 30 MG TABLET PO (08:21)
[2019-08-22] MEDS: carvediloL 12.5 MG TABLET PO (08:21)
[2019-08-22] MEDS: INSULIN ASPART (*BKC) 100 UNITS/ML SUB-Q ×5 (08:24→18:30)
[2019-08-22] MEDS: VITAMIN B CMPLX/VIT C/FOLIC AC 1 CAPSULE 1 CAP PO (08:30)
[2019-08-22 08:51] LABS: Hepatitis B Surface Antigen Negative (Negative)
--- NOTE | 2019-08-22 08:53 | PC.NURSE ---
Isolation dced per Dai Martinez, Infection Control Nurse.
[2019-08-22 09:09] LABS: Hepatitis B Surface Anti Res Negative
[2019-08-22] MEDS: DORNASE ALFA INH SOLN 1 MG/ML 2.5 ML AMP 2.5 MG INHALATION ×3 (09:17→22:55)
--- NOTE | 2019-08-22 10:43 | PM.PNNEP ---
Progress Note: A&P Assessment and Plan (1) End stage renal disease: Code(s): N18.6 - End stage renal disease Status: Acute Assessment and Plan: Patient has end-stage renal disease. She is due for dialysis (2) Acute viral syndrome: Code(s): B34.9 - Viral infection, unspecified Status: Acute Assessment and Plan: Symptoms seem to be improving. (3) Hallucinations: Code(s): R44.3 - Hallucinations, unspecified Status: Acute Assessment and Plan: This is better. She received sleeping pills. (4) Anemia: Code(s): D64.9 - Anemia, unspecified Status: Chronic Assessment and Plan: Hemoglobin is up and down. Today's values 8.7. She gets EPO. (5) Hypertension: Qualifiers: Hypertension type: unspecified Qualified Code(s): I10 - Essential (primary) hypertension Code(s): I10 - Essential (primary) hypertension Status: Chronic Assessment and Plan: . Subjective Date/time seen: 08/22/19 10:43 Interval history: Patient is alert. She feels better. She wants to go home. People have been talking to her about going to rehab because she might be too weak to go home as she lives by herself. I agree with rehab. 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 We are reluctant because she may fall at home. She has help during the day but nothing at night. Review of Systems Cardiovascular: Cardiovascular: Reports no additional cardiovascular complaints Respiratory: Respiratory: Reports no additional respiratory complaints Gastrointestinal: Gastrointestinal: Reports no additional gastrointestinal complaints Genitourinary: Genitourinary: Reports no additional female genitourinary complaints Exam Narrative: Exam Narrative: Well developed well-nourished in no acute distress Lungs mildly coarse upper airway noise. Heart regular without rub Abdomen bowel sounds positive soft nontender Extremities no edema Skin no rash Objective Data Vital Signs Vital Signs: Vital Signs - 24 hr 08/21/19 14:00 08/21/19 14:47 08/21/19 14:57 Temperature 36.3 C L Pulse Rate 81 78 84 Respiratory Rate 18 18 18 Blood Pressure 101/56 L Pulse Oximetry 97 08/21/19 22:00 08/21/19 22:25 08/21/19 22:42 Temperature 36.6 C Pulse Rate 66 80 87 Respiratory Rate 16 16 16 Blood Pressure 112/55 L Pulse Oximetry 98 08/22/19 03:13 08/22/19 03:23 08/22/19 06:00 Temperature 36.6 C Pulse Rate 89 93 59 L Respiratory Rate 16 19 20 Blood Pressure 137/59 L Pulse Oximetry 97 08/22/19 08:21 Temperature Pulse Rate 88 Respiratory Rate Blood Pressure Pulse Oximetry Intake/Output Intake/Output: Intake & Output 08/19/19 08/20/19 08/21/19 08/22/19 23:59 23:59 23:59 23:59 Intake Total 480 1300 240 Output Total 0 0 Balance 480 1300 240 Meds/Results Medications: Active Medications Generic Name Dose Route Start Last Admin Trade Name Freq PRN Reason Stop Dose Admin Acetaminophen 650 mg 08/20/19 18:21 08/21/19 08:17 Tylenol Tablet PO 650 mg Q4H PRN Administration Mild Pain (1-3) or Fever Albuterol 5 mg 08/20/19 20:00 08/22/19 09:17 Albuterol Sulf Neb 2.5mg/0.5ml INHALATION 5 mg Q6HRT THERESE Administration Aspirin 81 mg 08/21/19 09:00 08/22/19 08:21 Aspirin Chewable PO 81 mg BID THERESE Administration Bisacodyl 5 mg 08/21/19 12:32 Dulcolax Tab PO QAM PRN Constipation Carvedilol 12.5 mg 08/21/19 09:00 08/22/19 08:21 Coreg PO 12.5 mg DAILY THERESE Administration Cinacalcet 30 mg 08/21/19 09:00 08/22/19 08:21 Sensipar PO 30 mg DAILY THERESE Administration Cyanocobalamin 500 mcg 08/21/19 09:00 08/22/19 08:20 Vitamin B-12 Tab PO 500 mcg DAILY THERESE Administration Dextrose 12.5 gm 08/21/19 12:56 Dextrose 50% Syringe IV PUSH PRN PRN Hypoglycemia Protocol Dornase Son 2.5 mg 08/21
--- NOTE | 2019-08-22 12:02 | PM.IMPN ---
Progress Note: A&P Assessment and Plan (1) Acute viral syndrome: Code(s): B34.9 - Viral infection, unspecified Status: Acute Assessment and Plan: Patient diagnosed with Influenza A last week and was just recently discharged 08/18. She continues with significant wheezing, cough, and chest congestion. Continue bronchodilator therapy with duo nebs, pulmozyme and cornet, mucinex. Increase activity. (2) End stage renal disease on dialysis: Code(s): N18.6 - End stage renal disease; Z99.2 - Dependence on renal dialysis Status: Chronic Assessment and Plan: Dialysis MWF, follows with Dr Suarez. Consulted nephrology for help with dialysis orders while she is here. Monitor renal function and avoid nephrotoxic medications. Dialysis this afternoon. She does not make much urine. (3) Generalized weakness: Code(s): R53.1 - Weakness Status: Acute Assessment and Plan: Likely secondary to age, deconditioning, and acute illness with the flu. Discharge dispo is SNF, possibly tomorrow. (4) Leukocytosis: Qualifiers: Leukocytosis type: unspecified Qualified Code(s): D72.829 - Elevated white blood cell count, unspecified Code(s): D72.829 - Elevated white blood cell count, unspecified Status: Acute Assessment and Plan: Suspect secondary to above. Ordered UA which was unable to be obtained - RN had straight catheterized patient and unable to get enough urine for a sample. (5) Type 2 diabetes mellitus: Qualifiers: Diabetes mellitus complication status: without complication Diabetes mellitus cigarette packer insulin use: without cigarette packer use Qualified Code(s): E11.9 - Type 2 diabetes mellitus without complications Code(s): E11.9 - Type 2 diabetes mellitus without complications Status: Acute Assessment and Plan: Continue home januvia; monitor with accu-cheks and cover with sliding scale insulin. Blood sugars are elevated; added 4 units novolog scheduled with meals. (6) Hypertension: Qualifiers: Hypertension type: unspecified Qualified Code(s): I10 - Essential (primary) hypertension Code(s): I10 - Essential (primary) hypertension Status: Chronic Assessment and Plan: Continue home carvedilol and losartan. Monitor BP and adjust medication as needed. (7) Thoracic ascending aortic aneurysm: Code(s): I71.2 - Thoracic aortic aneurysm, without rupture Status: Acute Assessment and Plan: Stable, noted on imaging during last stay. Monitor BP. (8) Pulmonary nodule: Code(s): R91.1 - Solitary pulmonary nodule Status: Acute Assessment and Plan: Noted on imaging last admission, recommend follow up CT after discharge. (9) Anemia of chronic disease: Code(s): D63.8 - Anemia in other chronic diseases classified elsewhere Status: Acute Assessment and Plan: H&H low but stable. Likely secondary to chronic renal failure. No evidence of acute bleeding. Monitor CBC. (10) DVT prophylaxis: Code(s): Z29.9 - Encounter for prophylactic measures, unspecified Status: Acute Assessment and Plan: SCDs Subjective Date/time seen: 08/22/19 1145 Interval history: Ms. Javad Obando is a 74yo F with end stage renal disease admitted with acute viral syndrome. She continues to have significant wheezing and cough today. She feels weak and tired. Shortness of breath unchanged. She denies any chest pain. She reports having some dysuria lately when she does urinate, but she does not make much urine. No nausea or vomiting. Review of Systems Review of Systems: Narrative: Twelve systems were reviewed with pert
[2019-08-22 12:50] LABS: Glucose Point of Care 242 (65-105)
--- NOTE | 2019-08-22 14:37 | PC.NURSE ---
To dialysis at 1420. Wanted Miralax after treatment
[2019-08-22] MEDS: EPOETIN ALFA 10,000 UNITS/ML VIAL 10000 UNITS IV PUSH (16:30)
[2019-08-22] MEDS: polyethylene glycoL 3350 17 GM POWD.PACK PO (18:29)
[2019-08-22 18:38] LABS: Glucose Point of Care 128 (65-105)
[2019-08-22] MEDS: LOVASTATIN 20 MG TABLET PO (19:32)
[2019-08-22] MEDS: LOSARTAN POTASSIUM 25 MG TABLET PO (19:33)
[2019-08-22] MEDS: ACETAMINOPHEN 325 MG TABLET 650 MG PO (19:33)
[2019-08-23] VITALS (9 sets, daily range): BP systolic 136–139; BP diastolic 57–69; PULSE 87–93; RESP 16–20; TEMP 37; O2SAT 95–100
[2019-08-23] MEDS: ALBUTEROL SULFATE NEB 2.5 MG/0.5 ML INH 5 MG INHALATION ×3 (03:05→15:19)
[2019-08-23] MEDS: IPRATROPIUM BR 0.02% INH SOLN 0.5 MG/2.5 ML VIAL INHALATION ×3 (03:06→15:19)
[2019-08-23 06:28] LABS: Eosinophils Percent Auto 0.2 % (0-4.4); Hematocrit 29.5 % (37.0-47.0); Hemoglobin 8.5 g/dL (12.0-15.0); Immature Granulocyte Absolute 0.15 K/mm3 (0.00-0.031); Immature Granulocyte Percent A 1.2 % (0-0.5); Lymphocytes Absolute Auto 1.01 K/mm3 (0.9-3.2); Lymphocytes Percent Auto 7.9 % (18.3-44.2); Mean Corpuscular HGB Conc 28.8 g/dl (32-36); Mean Corpuscular Hemoglobin 30.5 pg (26-34); Mean Corpuscular Volume 105.7 fl (80-100); Mean Platelet Volume 11.6 fl (7.4-10.4); Monocytes Absolute Auto 0.9 K/mm3 (0.1-0.6); Monocytes Percent Auto 7.3 % (2.6-8.5); Neutrophils Absolute Auto 10.7 K/mm3 (1.3-6.7); Neutrophils Percent Auto 83.4 % (45.5-73.1); Platelet Count Result 184 k/mm3 (150-375); Red Blood Count 2.79 M/mm3 (4.2-5.4); Red Cell Distribution Width 16.5 % (11.5-14.5); White Blood Count 12.8 K/mm3 (4.5-10.0)
[2019-08-23 06:36] LABS: Blood Urea Nitrogen 21 mg/dL (7-17); Calcium 7.5 mg/dL (8.4-10.2); Carbon Dioxide 27 mmol/L (22-30); Chloride 96 mmol/L (98-107); Estimated CRCL calculation 12 ml/min; Estimated Glomerular Filt Rate 13; Glucose 219 mg/dL (65-105); Magnesium 2.2 mg/dL (1.6-2.3); Phosphorus 2.6 mg/dL (2.5-4.5); Potassium 3.9 mmol/L (3.4-5.0); Sodium 139 mmol/L (137-145)
[2019-08-23] MEDS: INSULIN ASPART (*BKC) 100 UNITS/ML SUB-Q ×3 (07:35→13:09)
[2019-08-23 07:41] LABS: Glucose Point of Care 203 (65-105)
[2019-08-23 07:55] LABS: Anisocytosis 1+ (NORMAL); Hypochromasia 1+ (NORMAL); Platelet Estimate Adequate (Adequate); Poikilocytosis 1+ (NORMAL)
[2019-08-23] MEDS: DORNASE ALFA INH SOLN 1 MG/ML 2.5 ML AMP 2.5 MG INHALATION (09:04)
[2019-08-23] MEDS: carvediloL 12.5 MG TABLET PO (09:50)
[2019-08-23] MEDS: ASPIRIN 81 MG CHEWABLE TABLET PO (09:50)
[2019-08-23] MEDS: CINACALCET 30 MG TABLET PO (09:50)
--- NOTE | 2019-08-23 09:50 | PM.PNNEP ---
Progress Note: A&P Assessment and Plan (1) End stage renal disease: Code(s): N18.6 - End stage renal disease Status: Acute Assessment and Plan: Patient has end-stage renal disease. Had dialysis yesterday. She will get it again on Sunday. (2) Acute viral syndrome: Code(s): B34.9 - Viral infection, unspecified Status: Acute Assessment and Plan: Symptoms seem to be improving. (3) Hallucinations: Code(s): R44.3 - Hallucinations, unspecified Status: Acute Assessment and Plan: This is better. She received sleeping pills. (4) Anemia: Code(s): D64.9 - Anemia, unspecified Status: Inactive Assessment and Plan: Hemoglobin is up and down. Today's values 8.5. She gets EPO. (5) Hypertension: Qualifiers: Hypertension type: unspecified Qualified Code(s): I10 - Essential (primary) hypertension Code(s): I10 - Essential (primary) hypertension Status: Chronic Assessment and Plan: . Blood pressure is doing pretty well. She is on losartan and carvedilol Subjective Date/time seen: 08/23/19 09:50 Interval history: Patient is alert. She feels better. Still weak. She is going to rehab as soon as a place get set up. Review of Systems Cardiovascular: Cardiovascular: Reports no additional cardiovascular complaints Respiratory: Respiratory: Reports no additional respiratory complaints Gastrointestinal: Gastrointestinal: Reports no additional gastrointestinal complaints Genitourinary: Genitourinary: Reports no additional female genitourinary complaints Exam Narrative: Exam Narrative: Well developed well-nourished in no acute distress Lungs mildly coarse upper airway noise. Heart regular without rub or gallop Abdomen bowel sounds positive soft nontender Extremities no edema Skin no rash or subcu nodules Objective Data Vital Signs Vital Signs: Vital Signs - 24 hr 08/22/19 14:00 08/22/19 14:33 08/22/19 14:45 Temperature 36.5 C Pulse Rate 83 83 80 Respiratory Rate 18 Blood Pressure 101/51 L 108/44 L 110/42 L Pulse Oximetry 96 08/22/19 14:50 08/22/19 15:00 08/22/19 15:16 Temperature 36.6 C Pulse Rate 78 86 83 Respiratory Rate 16 Blood Pressure 104/49 L 102/60 129/57 L Pulse Oximetry 08/22/19 15:30 08/22/19 15:45 08/22/19 16:00 Temperature Pulse Rate 81 69 86 Respiratory Rate Blood Pressure 116/52 L 116/38 L 116/58 L Pulse Oximetry 08/22/19 16:16 08/22/19 16:30 08/22/19 16:45 Temperature Pulse Rate 99 90 94 Respiratory Rate Blood Pressure 133/63 101/47 L 91/34 L Pulse Oximetry 08/22/19 17:00 08/22/19 17:15 08/22/19 17:30 Temperature Pulse Rate 94 88 93 Respiratory Rate Blood Pressure 102/50 L 109/43 L 103/50 L Pulse Oximetry 08/22/19 17:46 08/22/19 18:00 08/22/19 18:19 Temperature 36.5 C Pulse Rate 88 93 92 Respiratory Rate 16 Blood Pressure 110/44 L 91/40 L 142/64 H Pulse Oximetry 08/22/19 22:00 08/22/19 22:55 08/22/19 23:02 Temperature 36.9 C Pulse Rate 106 H 92 90 Respiratory Rate 16 20 20 Blood Pressure 109/60 Pulse Oximetry 91 08/23/19 03:06 08/23/19 03:12 08/23/19 05:59 Temperature 37.0 C Pulse Rate 91 89 87 Respiratory Rate 20 20 16 Blood Pressure 136/69 Pulse Oximetry 95 08/23/19 09:04 08/23/19 09:49 Temperature Pulse Rate 90 91 Respiratory Rate 18 18 Blood Pressure 139/57 L Pulse Oximetry 100 Intake/Output Intake/Output: Intake & Output 08/20/19 08/21/19 08/22/19 08/23/19 23:59 23:59 23:59 23:59 Intake Total 480 1300 840 Output Total 0 0 2500 Balance 480 1300 -1660 Meds/Results Medications: Active Medications Generic Name Dose Route Start Last Admin Trade Name Freq PRN Reason Stop Dose Admin Acetaminophen 650 mg 08/20/19 18:21 08/22/19 19:33 Tylenol Tablet PO 650 mg Q4H PRN Administration Mild Pain (1-3) or Fever Albuterol 5 mg
[2019-08-23] MEDS: SEVELAMER CARBONATE 800 MG TABLET 2400 MG PO ×2 (09:51→13:13)
[2019-08-23] MEDS: polyethylene glycoL 3350 17 GM POWD.PACK PO (09:51)
[2019-08-23] MEDS: CYANOCOBALAMIN 500 MCG TABLET PO (09:51)
[2019-08-23 12:06] LABS: Glucose Point of Care 182 (65-105)
[2019-08-23] MEDS: VITAMIN B CMPLX/VIT C/FOLIC AC 1 CAPSULE 1 CAP PO (13:11)
[2019-08-23] MEDS: BISACODYL 10 MG SUPPOSITORY RECTAL (14:11)
[2019-08-23] MEDS: BISACODYL 5 MG TABLET EC PO (15:36)
--- NOTE | 2019-08-23 17:18 | PC.NURSE ---
Patient discharged @1645, patient left via wheel chair and POV. Report called to Radha KRAFT at [facility]. IV line removed at discharge.
--- NOTE | 2019-08-23 17:53 | PM.DS ---
DS: Diagnosis Admitting Diagnosis Admitting Diagnosis: Viral infection, unspecified Discharge Diagnosis (1) Acute viral syndrome: Code(s): B34.9 - Viral infection, unspecified Status: Acute Assessment and Plan: Date of Service 08/23/19 Ms. Javad Obando is a 74yo F with history of end-stage renal failure on hemodialysis MWF, anemia of chronic disease, hypertension, non insulin dependent type 2 diabets mellitus who presented to the ED for evaluation of weakness, fatigue, cough and wheezing. She was recently discharged from [facility] earlier in the week when she was admitted 08/16/19 to 08/18/19; found to have influenza A and was treated for acute respiratory failure and altered mental status. She presented again to the ED for persistent symptoms and felt to be too weak at home, since her caregivers are not 24-hrs. During this admission, she continued to have wheezing and cough throughout her stay. Chest XR showed no acute cardiopulmonary findings. Leukocytosis on arrival felt to be related to respiratory illness with influenza, improved by day of discharge. She was treated with supportive care to include nebulized bronchodilators, pulmozyme, PEP therapy with cornet, and mucinex. Her symptoms improved with the therapy outlined above but she remained weak and fatigued. She will benefit from continued nebulizers at [facility]. She received dialysis Sunday and Sunday here. She follows with Dr Suarez normally and was seen by Dr Taylor here. Her renal function appeared to be at her baseline. She makes little to no urine. She was noted to have altered mental status and hallucinations during her last admission, could have been related to hospital delirium vs. encephalopathy from acute illnes or medications/tamiflu. She was much improved and near her baseline through this admission with no issues. She continued to work with PT/OT but ultimately felt she was unsafe to return home at this time. She was felt to be a good candidate for continued PT/OT at [facility] and was discharged to [facility] 08/23/19. She was hemodynamically stable for discharge with plans to follow up with PCP in 1 week (or to be seen by [place] provider), and Dr Suarez as scheduled. (2) End stage renal disease on dialysis: Code(s): N18.6 - End stage renal disease; Z99.2 - Dependence on renal dialysis Status: Chronic Assessment and Plan: Dialysis MWF, follows with Dr Suarez. At baseline. (3) Generalized weakness: Code(s): R53.1 - Weakness Status: Acute Assessment and Plan: Likely secondary to age, deconditioning, and acute illness with the flu. PT/OT, discharged to SNF. (4) Leukocytosis: Qualifiers: Leukocytosis type: unspecified Qualified Code(s): D72.829 - Elevated white blood cell count, unspecified Code(s): D72.829 - Elevated white blood cell count, unspecified Status: Acute Assessment and Plan: Suspect secondary to above. Ordered UA which was unable to be obtained - RN had straight catheterized patient and unable to get enough urine for a sample. (5) Type 2 diabetes mellitus: Qualifiers: Diabetes mellitus manager long term care insulin use: without manager long term care use Diabetes mellitus complication status: without complication Qualified Code(s): E11.9 - Type 2 diabetes mellitus without complications Code(s): E11.9 - Type 2 diabetes mellitus without complications Status: Acute Assessment and Plan: Maintained on home januvia. Blood sugars elevated here and treated with sliding scale insulin. follow up with PCP. (6) Hypertension: Qualifiers: Hypertension type: unspecified Qualified Code(s): I10 - Essential (primary) hypertension Code(s): I10 - Essential (primary) hypertension Status: Chronic Asses
[2019-08-25 02:57] LABS: Hepatitis B Core Ab Total Reactive (Nonreactive)
== END 2019-08-23 16:45 | DRG 865 ==
LOC: ANHED 18:20 → ANH3MEDSUR 19:28
PROVIDERS: Internal Medicine Nephrology; Physician Assistant; Admitting Provider Hospitalist; Emergency Provider Family Medicine; PCP Family Medicine; Visit Provider Internal Medicine
DX: B34.9 Viral infection, unspecified (principal); N18.6 End stage renal disease; I12.0 Hypertensive chronic kidney disease with stage 5 chronic kidney disease or end stage renal disease; Z99.2 Dependence on renal dialysis; E11.22 Type 2 diabetes mellitus with diabetic chronic kidney disease; D63.1 Anemia in chronic kidney disease; E78.5 Hyperlipidemia, unspecified; M17.0 Bilateral primary osteoarthritis of knee; M81.0 Age-related osteoporosis without current pathological fracture; I48.0 Paroxysmal atrial fibrillation; Z95.818 Presence of other cardiac implants and grafts; Z98.49 Cataract extraction status, unspecified eye; I71.2 Thoracic aortic aneurysm, without rupture; R91.1 Solitary pulmonary nodule
CPT/HCPCS: 36415; 71045; 80048; 80053; 80069; 83735; 84100; 85025; 85027; 86704; 86706; 87040; 87340; 87804; 94640; 94667; 94668; 97110; 97116; 97161; 97165; 97530; 97535; 99285; A9270; G0257; J1815; J7030; Q4081

== ENCOUNTER 2019-12-12 14:16 | Emergency (ER) | payer MEDICARE, MEDICAID, SELFPAY ==
[2019-12-12 14:41] VITALS: BP 103/42; PULSE 66; RESP 18; TEMP 37.9; O2SAT 100
[2019-12-12 14:55] LABS: Basophils Percent Auto 0.1 % (0.2-1.2); Eosinophils Percent Auto 0.4 % (0-4.4); Hematocrit 30.2 % (37.0-47.0); Hemoglobin 8.5 g/dL (12.0-15.0); Immature Granulocyte Absolute 0.03 K/mm3 (0.00-0.031); Immature Granulocyte Percent A 0.4 % (0-0.5); Lymphocytes Absolute Auto 1.08 K/mm3 (0.9-3.2); Lymphocytes Percent Auto 14.9 % (18.3-44.2); Mean Corpuscular HGB Conc 28.1 g/dl (32-36); Mean Corpuscular Hemoglobin 27.2 pg (26-34); Mean Corpuscular Volume 96.8 fl (80-100); Mean Platelet Volume 9.8 fl (7.4-10.4); Monocytes Absolute Auto 0.8 K/mm3 (0.1-0.6); Monocytes Percent Auto 11.6 % (2.6-8.5); Neutrophils Absolute Auto 5.3 K/mm3 (1.3-6.7); Neutrophils Percent Auto 72.6 % (45.5-73.1); Platelet Count Result 209 k/mm3 (150-375); Red Blood Count 3.12 M/mm3 (4.2-5.4); Red Cell Distribution Width 20.9 % (11.5-14.5); White Blood Count 7.3 K/mm3 (4.5-10.0)
[2019-12-12 15:02] LABS: INR 1.1; Prothrombin Time 13.5 Seconds (11.1-14.7)
[2019-12-12 15:03] LABS: Partial Thromboplastin Time 37.7 SECONDS (22.3-36.8)
[2019-12-12 15:06] LABS: Ovalocytes 1+ (NORMAL); Platelet Estimate Adequate (Adequate)
[2019-12-12 15:07] LABS: Hypochromasia 1+ (NORMAL); Stomatocytes 1+ (NORMAL)
[2019-12-12 15:08] LABS: Alanine Aminotransferase 14 U/L (4-35); Albumin Level 3.9 g/dL (3.5-5.1); Alkaline Phosphatase 166 U/L (38-126); Aspartate Amino Transferase 25 U/L (14-36); Bilirubin,Total 0.6 mg/dL (0.2-1.3); Blood Urea Nitrogen 12 mg/dL (7-17); Calcium 8.1 mg/dL (8.4-10.2); Carbon Dioxide 30 mmol/L (22-30); Chloride 89 mmol/L (98-107); Estimated Glomerular Filt Rate 26; Glucose 208 mg/dL (65-105); Potassium 3.9 mmol/L (3.4-5.0); Sodium 131 mmol/L (137-145)
[2019-12-12 15:38] VITALS: BP 140/63; PULSE 72; RESP 12; TEMP 37; O2SAT 95
--- NOTE | 2019-12-12 15:47 | ED.GIBLEED ---
HPI - GI Bleed General Chief complaint: GI Bleed Stated complaint: GI bleed Time Seen by Provider: 12/12/19 15:36 History of Present Illness HPI Narrative: Sent by PCP for concerns about GI bleed. Recently discharged from an outside hospital where she was treated for a bleeding gastric ulcer. She was started on protonix and antibiotics and her eliquis was held. She reports having a few days of diarrhea since that time. This has since resolved. However while this was ging on she sent a stool sample for hemmocult testing, which came back positive today. She reports feeling well. No SOB, dizziness. Related Data Home Medications Medication Instructions Recorded Confirmed Januvia 100 mg PO DAILY 06/12/19 08/20/19 Prolia 60 mg SUBCUT [id number] 06/12/19 08/20/19 aspirin 81 mg PO BID 06/12/19 08/20/19 carvedilol 12.5 mg PO DAILY 06/12/19 08/20/19 clotrimazole 1 applic TOPICAL BID 06/12/19 08/20/19 cyanocobalamin (vitamin B-12) 500 mcg PO DAILY 06/12/19 08/20/19 sevelamer carbonate [Renvela] 2,400 mg PO TID 06/12/19 08/20/19 Renal Caps 1 cap PO DAILY 08/15/19 08/20/19 lidocaine-prilocaine 1 applic TOPICAL ONCE 08/15/19 08/20/19 lovastatin 20 mg PO HS 08/20/19 08/20/19 azithromycin 250 mg tablet 250 mg PO DAILY 11/21/19 levofloxacin 500 mg tablet 500 mg PO .QOD tablet 11/21/19 Allergies Allergy/AdvReac Type Severity Reaction Status Date / Time cefazolin Allergy Mild nausea/dizz Verified 12/12/19 14:46 iness enalapril Allergy Unknown cough Verified 12/12/19 14:46 pioglitazone Allergy Unknown Unknown Verified 12/12/19 14:46 tramadol Allergy Unknown hallucinati Verified 12/12/19 14:46 ons gabapentin Allergy Hallucinati Verified 12/12/19 14:49 ng Review of Systems Review of Systems: All systems reviewed & are unremarkable except as noted in HPI and below Constitutional: Constitutional: Denies chills and Denies fever(s) Cardiovascular: Cardiovascular: Denies chest pain Respiratory: Respiratory: Denies dyspnea Gastrointestinal: Gastrointestinal: Denies abdominal pain, Denies diarrhea, Denies nausea and Denies vomiting Neurologic: Denies weakness [facility] Past Medical History Medical History Anemia of chronic disease AV fistula Closed fracture of lateral portion of right tibial plateau (~2014) End stage renal disease on dialysis Dialysis days are Sunday, Sunday, and Sunday. She is on the transplant list at [place]. Hiatal hernia Hyperlipidemia Hypertension Osteoarthritis of both knees Osteoporosis PAD (peripheral artery disease) Paroxysmal atrial fibrillation Presence of Watchman left atrial appendage closure device Staphylococcal septicemia (~2013) Type 2 diabetes mellitus Hemoglobin A1c was 6.6 in July 2019. Surgical History Surgical History History of arthroplasty of right ankle History of arthroscopy (~12/07/12) wrist History of cataract extraction History of colonoscopy (~12/02/15) History of knee replacement (~2015) right Family History Family History Father Hypertension Family history of cardiovascular disease Mother Hypertension Diabetes mellitus Family history of lung cancer Sibling Family history of cardiovascular disease Social History Social History Social History: The patient is and lives in [place]. She is originally from [place]. 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 She has 2 daughters who live in [place]. She has 1 son who lives in [facility]. She designates her daughters as her surrogate decision makers and she wishes to be a full code. She is a lifelong nonsmoker. No alcohol or drug abuse. Smoking status: Never smoker Alcohol intake: never Substance use: never Gender identity
[2019-12-12 16:45] VITALS: BP 137/59; PULSE 81; RESP 14; TEMP 36.4; O2SAT 96
== END 2019-12-12 16:58 | disposition home or self-care (01) ==
PROVIDERS: Emergency Provider Emergency Medicine; PCP Family Medicine
DX: E11.22 Type 2 diabetes mellitus with diabetic chronic kidney disease (principal); N18.6 End stage renal disease; D63.1 Anemia in chronic kidney disease; I12.0 Hypertensive chronic kidney disease with stage 5 chronic kidney disease or end stage renal disease; Z99.2 Dependence on renal dialysis; E11.51 Type 2 diabetes mellitus with diabetic peripheral angiopathy without gangrene; E78.5 Hyperlipidemia, unspecified; M81.0 Age-related osteoporosis without current pathological fracture; I48.0 Paroxysmal atrial fibrillation; Z79.84 Long term (current) use of oral hypoglycemic drugs; Z79.01 Long term (current) use of anticoagulants
CPT/HCPCS: 36415; 80053; 85025; 85610; 85730; 86850; 86900; 86901; 99283

== ENCOUNTER 2019-12-18 20:19 | Inpatient (IN) | payer MEDICARE, MEDICAID, SELFPAY ==
--- NOTE | ~2019-12-18 | XR_ITS ---
EXAMINATION: XR chest 1V portable DATE: 12/19/2019 08:20 INDICATION: Volume overload. Weakness. TECHNIQUE: frontal view of the chest was obtained. COMPARISON: Chest radiograph dated 08/20/2019 FINDINGS: Mild increased interstitial pattern in the bilateral mid and lower lung zones consistent with mild pu lmonary edema. No focal airspace opacities, pleural effusion or pneumothorax. Cardiomegaly. Atheroscl erotic aorta. Atrial appendage closer device projects over the bifurcation of the left mainstem bronc hus. IMPRESSION: 1. Likely congestive heart failure with cardiomegaly and mild pulmonary edema. Reviewed, dictated and finalized at location A.
[2019-12-18 20:17] VITALS: BP 144/58; PULSE 78; RESP 26; TEMP 36.8; O2SAT 100
[2019-12-18 20:30] VITALS: PULSE 67
--- NOTE | 2019-12-18 20:35 | ECG_ITS ---
Measurements Intervals [place] Rate: 55 P: NE: 0 QRS: 251 QRSD: 236 T: 69 QT: 551 QTc: 531 Interpretive Statements ATRIAL FIBRILLATION WITH SLOW VENTRICULAR RESPONSE VENTRICULAR PREMATURE COMPLEX MARKED RIGHT AXIS DEVIATION RIGHT BUNDLE BRANCH BLOCK PEAKED T WAVES- CONSIDER HYPERKALEMIA OR ISCHEMIA ABNORMAL ECG Electronically Signed On 12-19-2019 7:22:23 CDT by Danny Soliz D.O.
--- NOTE | 2019-12-18 20:37 | ED.WEAKNESS ---
HPI - Weakness General Chief complaint: Weakness Stated complaint: diarrhea/fall/weakness Time Seen by Provider: 12/18/19 20:34 History of Present Illness HPI Narrative: 74 yo female w/ h/o ESRD on dialysis, DM, peripheral arterial disease, Gi bleed BIBEMS fro [facility]home c/o weakness. She reports that she has had diarrhea for the past 2 weeks. Prior to that she was hospitalized for a toe amputation and during the hospital stay she was found to have an upper Gi bleed. She was seen here 1 week ago for concern about a GI bleed, but at that time she reported no diarrhea and H/H were stable. She has only been eating potatos. She has not missed dialysis. Related Data Home Medications Medication Instructions Recorded Confirmed Januvia 100 mg PO DAILY 06/12/19 12/19/19 aspirin 81 mg PO DAILY 06/12/19 12/19/19 cyanocobalamin (vitamin B-12) 500 mcg PO DAILY 06/12/19 12/19/19 B complex with C 20-folic acid 1 cap PO DAILY 08/15/19 12/19/19 [Triphrocaps] insulin degludec [Tresiba 10 unit SUBCUT DAILY 12/17/19 12/19/19 FlexTouch U-100] ergocalciferol (vitamin D2) 50,000 unit PO WEEKLY 12/19/19 12/19/19 [Vitamin D2] pantoprazole 40 mg PO DAILY 12/19/19 12/19/19 sucralfate 1 g PO TIDWM 12/19/19 12/19/19 Allergies Allergy/AdvReac Type Severity Reaction Status Date / Time cefazolin Allergy Mild nausea/dizz Verified 12/17/19 13:58 iness enalapril Allergy Unknown cough Verified 12/17/19 13:58 pioglitazone Allergy Unknown Unknown Verified 12/17/19 13:58 tramadol Allergy Unknown hallucinati Verified 12/17/19 13:58 ons gabapentin Allergy Hallucinati Verified 12/17/19 13:58 ng Review of Systems Review of Systems: All systems reviewed & are unremarkable except as noted in HPI and below Constitutional: Constitutional: Denies fever(s) and Reports weakness ENT: Denies dizziness Cardiovascular: Cardiovascular: Denies chest pain Respiratory: Respiratory: Denies dyspnea Gastrointestinal: Gastrointestinal: Denies abdominal pain Musculoskeletal: Musculoskeletal: Denies back pain Neurologic: Denies focal weakness PMFSH Past Medical History Medical History Anemia of chronic disease Megaloblastic anemia AV fistula Closed fracture of lateral portion of right tibial plateau (~2014) End stage renal disease on dialysis Dialysis days are Sunday, Sunday, and Sunday. She is on the transplant list at [facility]. Hiatal hernia Hyperlipidemia Hypertension Osteoarthritis of both knees Osteoporosis PAD (peripheral artery disease) With history of midfoot amputation Paroxysmal atrial fibrillation Pulmonary hypertension Echocardiogram August 2019: EF 65-70 %, indeterminate left ventricular diastolic function, mild biatrial enlargement, mild mitral valve regurgitation, moderate tricuspid regurgitation, mild pulmonary hypertension with RVSP of 39 Spinal stenosis at L4-L5 level High-grade central canal stenosis noted on MRI February 2017 Staphylococcal septicemia (~2013) Thoracic ascending aortic aneurysm 4.[address] scan from August 2019 Type 2 diabetes mellitus Hemoglobin A1c was 6.6 in July 2019. Surgical History Surgical History Amputation at midfoot History of arthroplasty of right ankle History of arthroscopy (~12/07/12) wrist History of bilateral cataract extraction History of colonoscopy (~12/02/15) History of knee replacement (~2015) right Presence of Watchman left atrial appendage closure device Family History Family History Father Hypertension Heart disease Mother Diabetes mellitus Hypertension Tobacco dependence Lung cancer Sibling Heart disease Social History Social History Social History: The patient is and lives in [place]. She is originally
[2019-12-18] MEDS: CALCIUM GLUCONATE 1,000 MG/10 ML VIAL 1000 MG IV PUSH (20:57)
[2019-12-18 21:15] LABS: Basophils Absolute Auto 0.1 K/mm3 (0.0-0.1); Basophils Percent Auto 0.5 % (0.2-1.2); Eosinophils Percent Auto 0.3 % (0-4.4); Hematocrit 34.7 % (37.0-47.0); Hemoglobin 9.5 g/dL (12.0-15.0); Immature Granulocyte Absolute 0.04 K/mm3 (0.00-0.031); Immature Granulocyte Percent A 0.4 % (0-0.5); Lymphocytes Absolute Auto 0.86 K/mm3 (0.9-3.2); Mean Corpuscular HGB Conc 27.4 g/dl (32-36); Mean Corpuscular Hemoglobin 28.4 pg (26-34); Mean Corpuscular Volume 103.9 fl (80-100); Mean Platelet Volume 11.5 fl (7.4-10.4); Monocytes Absolute Auto 0.9 K/mm3 (0.1-0.6); Neutrophils Absolute Auto 8.9 K/mm3 (1.3-6.7); Neutrophils Percent Auto 82.8 % (45.5-73.1); Platelet Count Result 246 k/mm3 (150-375); Red Blood Count 3.34 M/mm3 (4.2-5.4); Red Cell Distribution Width 21.1 % (11.5-14.5); White Blood Count 10.7 K/mm3 (4.5-10.0)
--- NOTE | 2019-12-18 21:20 | PC.NURSE ---
Pt family member adamantly refusing a a straight cath. Dr. Siddiqui aware.
[2019-12-18 21:28] LABS: INR 1.2; Prothrombin Time 14.4 Seconds (11.1-14.7)
[2019-12-18 21:29] LABS: Partial Thromboplastin Time 34.6 SECONDS (22.3-36.8)
[2019-12-18 21:31] LABS: Alanine Aminotransferase 19 U/L (4-35); Albumin Level 4.2 g/dL (3.5-5.1); Alkaline Phosphatase 202 U/L (38-126); Aspartate Amino Transferase 47 U/L (14-36); Bilirubin,Total 0.7 mg/dL (0.2-1.3); Blood Urea Nitrogen 21 mg/dL (7-17); Calcium 11.8 mg/dL (8.4-10.2); Carbon Dioxide 28 mmol/L (22-30); Chloride 95 mmol/L (98-107); Estimated Glomerular Filt Rate 13; Glucose 206 mg/dL (65-105); Sodium 131 mmol/L (137-145)
--- NOTE | 2019-12-18 21:32 | PC.NURSE ---
This nurse along with a tech was told its against advice to straight cath because shes a dialysis Pt. from the homecare worker who was present. The homecare worker left out the room upset and spoke with charge nurse. Charge nurse requested I not Straight cath during this time.
[2019-12-18 21:35] VITALS: PULSE 92; RESP 18
[2019-12-18 21:39] LABS: Anisocytosis 3+ (NORMAL); Hypochromasia 1+ (NORMAL); Platelet Estimate Adequate (Adequate)
[2019-12-18] MEDS: INSULIN HUMAN REGULAR (*BKC) 100 UNITS/ML 10 UNITS IV PUSH (21:53)
[2019-12-18] MEDS: DEXTROSE 50% 25 GM/50 ML SYRINGE IV PUSH (21:53)
[2019-12-18] MEDS: SODIUM BICARBONATE 8.4% 50 MEQ/50 ML VIAL IV PUSH (21:54)
[2019-12-18] MEDS: ALBUTEROL SULFATE NEB 2.5 MG/0.5 ML INH 10 MG INHALATION (21:58)
[2019-12-18 22:19] VITALS: BP 134/70; PULSE 98; RESP 22; O2SAT 100
[2019-12-18 22:45] VITALS: PULSE 87
[2019-12-19] VITALS (32 sets, daily range): BP systolic 62–153; BP diastolic 21–95; PULSE 54–120; RESP 14–25; TEMP 35.7–37.7; O2SAT 98–100; BMI 31.6
[2019-12-19] MEDS: SODIUM POLYSTYRENE SULFONONATE 15 GM/60 ML BTL PO (00:08)
--- NOTE | 2019-12-19 01:07 | PM.IMHP ---
H&P: HPI History of Present Illness Chief complaint: Fall, increasing weakness Narrative: Date and time of patient contact: December 19, 2019 at 1:10 a.m. Shasta Obando is a 74 year old female with a past medical history of diabetes end-stage renal disease on hemodialysis who presented to the ER via EMS due to a fall. The patient reports 1-2 week of diarrhea with increasing weakness. The patient reports that she has been having for the last week. Her diarrhea has been watery and black in color. She had presented to the ER on the 11 of December due to her stool coming back positive for occult blood. However, her hemoglobin at that time was stable and her diarrhea had stopped. And she otherwise felt well so she was discharged home. She reported that the diarrhea started again a few days later. She did start taking Imodium a day or so ago and heard diarrheal episodes have decreased from 3 times a day down to once a day. Her stools are also more formed and mushy instead of watery. She reports that she is supposed to have a scope performed by a doctor at this facility on Sunday but she does not know which doctor. She reports that she has been eating rice and potatoes in order to get her stool more formed. She reported that she had not had a problem with having high potassium in quite some time so she thought she was safe eating the potatoes. She denies any abdominal pain. She has not missed any dialysis appointments. She reports that on the morning of the she became more profoundly fatigued. She had transfer herself from her wheelchair to the toilet but when she tried to transfer herself back to the toilet she fell. She denies having hit her head. She was too weak to get back up. She was able to get to her phone eventually and call her home health aide. Hospitalized at outside hospital for a toe amputation. At that time she was also diagnosed with a GI bleed from a gastric ulcer. The patient denies any increased shortness of breath. She is on chronic home O2 of 2 L. she reports severe pain in her right foot if any of her toes are touched. She reports that she has acute pressure ulcer to the back of her right heel that is healing. She is open wound to the 5th toe of the right foot but she states she is not due for dressing change until next week. She had a prior right great toe amputation that appears to have healed well. She denies any fevers or chills. The patient cannot remember the name of narrow gauge brakeman that she is supposed to see on Sunday for a scope. She had had a prior EGD performed by Dr. Abreu in January of 2017 that demonstrated hiatal hernia, gastritis, unspecified gastric ulcer, and dyskinesia of the esophagus. She reports that she is on the transplant list at [facility]. It sounds as if [facility] wanted the patient to come in for possible transplant this past Sunday and the patient refused because she did not feel well. Review of Systems Review of Systems: Narrative: 12 systems were reviewed with pertinent positives and negatives per HPI. Except as documented in the HPI, all other systems were reviewed and are negative. [facility] Past Medical History Medical History Amputated toe of left foot Anemia of chronic disease Megaloblastic anemia AV fistula Left upper extremity Closed fracture of lateral portion of right tibial plateau (~2014) End stage renal disease on dialysis Dialysis days are Sunday, Sunday, and Sunday. She is on the transplant list at [facility]. Hiatal hernia Hyperlipidemia Hypertension Osteoarthritis of both knees Osteoporosis PAD (peripheral artery disease) With history of midfoot amputation Paroxysmal atrial fibrillation Pulmonary hypertension Echocardiogram August 2019: EF 65-70 %, indeterminate left ventricular diastolic function, mild biatrial enlargement, mild mitral valve regurgitation, moderate tricuspid regurgitation, mild pulmonary hype
[2019-12-19 01:10] LABS: Glucose Point of Care 111 (65-105)
--- NOTE | 2019-12-19 01:13 | ECG_ITS ---
ATRIAL FIBRILLATION RIGHT AXIS DEVIATION RIGHT BUNDLE BRANCH BLOCK CANNOT RULE OUT SEPTAL INFARCT, AGE INDETERMINATE BASELINE ARTIFACT- I, III, AVR, AVL, AVF, V1 ABNORMAL ECG Electronically Signed On 12-19-2019 12:15:00 CDT by Danny Soliz D.O. COMPARED TO ECG 12/18/2019 20:48:48 MYOCARDIAL INFARCT FINDING NOW PRESENT MTDD
[2019-12-19 01:40] LABS: Blood Urea Nitrogen 22 mg/dL (7-17); Calcium 8.6 mg/dL (8.4-10.2); Carbon Dioxide 31 mmol/L (22-30); Chloride 98 mmol/L (98-107); Estimated Glomerular Filt Rate 13; Glucose 112 mg/dL (65-105); Potassium 8.2 mmol/L (3.4-5.0); Sodium 134 mmol/L (137-145)
--- NOTE | 2019-12-19 01:40 | ADMGEN ---
This patient, Shasta Obando, was admitted to Intensive Care Unit-6. Patient/family oriented to hospital policies and general routines including ID bracelet, bed and alarms, visiting hours, pain management, procedures, bathroom and other care routines, personal items, smoking policy, room service/diet, and visiting hours. Valuables list has been completed. Information on how to activate the Rapid Response Team has been discussed. Patient/Family are encouraged to report perceived risks to care and to ask questions if they do not understand what they are told or what they should do.
--- NOTE | 2019-12-19 02:13 | PC.NURSE ---
Patient refuses wound evaluation at this time. Admits to wounds to right heel and left foot which have been meticulously wrapped by her surgeon. States dressings were changed yesterday and are not due to be changed until tomorrow. Patient is concerned about getting wounds infected. Left foot 1st digit amputated. Right foot 5th digit amputated. Wound photos taken of toes which remain exposed. An rosa maria wrap over gauze is noted to right foot from right lower leg to distal right foot. A gauze dressing is present to the left foot from the left lower leg to distal left foot.
[2019-12-19] MEDS: ACETAMINOPHEN 325 MG TABLET 650 MG PO ×2 (04:07→14:37)
[2019-12-19] MEDS: ALBUMIN HUMAN 25% 25 GM/100 ML 200 ML IVPB (06:41)
[2019-12-19 07:12] LABS: Basophils Percent Auto 0.5 % (0.2-1.2); Eosinophils Absolute Auto 0.1 K/mm3 (0-0.3); Eosinophils Percent Auto 1.3 % (0-4.4); Hematocrit 23.9 % (37.0-47.0); Immature Granulocyte Absolute 0.02 K/mm3 (0.00-0.031); Immature Granulocyte Percent A 0.3 % (0-0.5); Lymphocytes Absolute Auto 1.09 K/mm3 (0.9-3.2); Lymphocytes Percent Auto 17.4 % (18.3-44.2); Mean Corpuscular Hemoglobin 28.4 pg (26-34); Mean Corpuscular Volume 101.3 fl (80-100); Mean Platelet Volume 11.2 fl (7.4-10.4); Monocytes Absolute Auto 0.9 K/mm3 (0.1-0.6); Monocytes Percent Auto 14.4 % (2.6-8.5); Neutrophils Absolute Auto 4.1 K/mm3 (1.3-6.7); Neutrophils Percent Auto 66.1 % (45.5-73.1); Platelet Count Result 178 k/mm3 (150-375); Red Blood Count 2.36 M/mm3 (4.2-5.4); Red Cell Distribution Width 20.8 % (11.5-14.5); White Blood Count 6.3 K/mm3 (4.5-10.0)
[2019-12-19 07:15] LABS: Hemoglobin 6.7 g/dL (12.0-15.0)
[2019-12-19 07:35] LABS: Hypochromasia 3+ (NORMAL); Platelet Estimate Adequate (Adequate); Polychromasia 1+ (NORMAL); Stomatocytes 2+ (NORMAL)
[2019-12-19 07:36] LABS: Blood Urea Nitrogen 9 mg/dL (7-17); Calcium 4.1 mg/dL (8.4-10.2); Carbon Dioxide 35 mmol/L (22-30); Chloride 95 mmol/L (98-107); Estimated Glomerular Filt Rate 34; Glucose 87 mg/dL (65-105); Potassium 3.9 mmol/L (3.4-5.0)
[2019-12-19 07:37] LABS: Sodium 135 mmol/L (137-145)
[2019-12-19 07:41] LABS: Basophils Percent Auto 0.6 % (0.2-1.2); Eosinophils Absolute Auto 0.1 K/mm3 (0-0.3); Eosinophils Percent Auto 1.2 % (0-4.4); Hemoglobin 7.1 g/dL (12.0-15.0); Immature Granulocyte Absolute 0.02 K/mm3 (0.00-0.031); Immature Granulocyte Percent A 0.3 % (0-0.5); Lymphocytes Absolute Auto 0.93 K/mm3 (0.9-3.2); Lymphocytes Percent Auto 13.7 % (18.3-44.2); Mean Corpuscular HGB Conc 27.3 g/dl (32-36); Mean Corpuscular Volume 102.4 fl (80-100); Mean Platelet Volume 11.2 fl (7.4-10.4); Monocytes Percent Auto 14.9 % (2.6-8.5); Neutrophils Absolute Auto 4.7 K/mm3 (1.3-6.7); Neutrophils Percent Auto 69.3 % (45.5-73.1); Platelet Count Result 195 k/mm3 (150-375); Red Blood Count 2.54 M/mm3 (4.2-5.4); Red Cell Distribution Width 20.9 % (11.5-14.5); White Blood Count 6.8 K/mm3 (4.5-10.0)
[2019-12-19 08:19] LABS: Blood Urea Nitrogen 8 mg/dL (7-17); Calcium 4.5 mg/dL (8.4-10.2); Carbon Dioxide 35 mmol/L (22-30); Chloride 94 mmol/L (98-107); Estimated Glomerular Filt Rate 34; Glucose 88 mg/dL (65-105); Potassium 4.1 mmol/L (3.4-5.0); Sodium 135 mmol/L (137-145)
[2019-12-19] MEDS: CYANOCOBALAMIN 500 MCG TABLET PO (08:52)
[2019-12-19] MEDS: VITAMIN B CMPLX/VIT C/FOLIC AC 1 CAPSULE 1 CAP PO (08:52)
[2019-12-19] MEDS: PANTOPRAZOLE 40 MG TABLET PO (08:52)
[2019-12-19] MEDS: SUCRALFATE 1 GM TABLET PO ×3 (08:52→16:27)
[2019-12-19] MEDS: hetaSTARCH 6%/NACL 500 ML 250 ML IV CONT (09:35)
--- NOTE | 2019-12-19 11:06 | WPDCNINT ---
Assessment and Plan Assessment and plan (1) Acute hyperkalemia: Code(s): E87.5 - Hyperkalemia Status: Acute Assessment and Plan: Patient with acute hyperkalemia most likely related to foods high in potassium i.e. potatoes. Patient was taking excess potatoes for her diarrhea. -hyperkalemia was aggressively treated, repeat potassium level this morning is 4.1 -patient did get on to dialysis but was taken off early removal of 300 mL S patient time to her blood pressures. -nephrology has been consulted -will continue to monitor potassium levels closely (2) Hypotension: Qualifiers: Hypotension type: unspecified hypotension type Qualified Code(s): I95.9 - Hypotension, unspecified Code(s): I95.9 - Hypotension, unspecified Status: Acute Assessment and Plan: Patient hypotensive likely related to GI bleed secondary drop in hemoglobin, diarrhea with dark stools, hypovolemia, dehydration -patient has been given albumin, Hespan -will try and replete volume loss -give additional IV fluids as patient is still having a lot diarrhea (3) Gastrointestinal bleed: Code(s): K92.2 - Gastrointestinal hemorrhage, unspecified Status: Acute Assessment and Plan: Patient with dark stools, -recently had an EGD at [facility], according the patient the found a gastric ulcer -will obtain EGD results from outside hospital -stools positive for occult blood -will start Protonix infusion -GI has been consulted (4) Type 2 diabetes mellitus: Qualifiers: Diabetes mellitus complication status: without complication Diabetes mellitus mcfp insulin use: without mcfp use Qualified Code(s): E11.9 - Type 2 diabetes mellitus without complications Code(s): E11.9 - Type 2 diabetes mellitus without complications Status: Acute Assessment and Plan: Accu-Cheks and sliding scale insulin (5) End stage renal disease on dialysis: Code(s): N18.6 - End stage renal disease; Z99.2 - Dependence on renal dialysis Status: Chronic Assessment and Plan: Patient with end-stage renal disease on dialysis Sunday, Sunday, Sunday -she is on [facility] list [facility] (6) Diarrhea: Qualifiers: Diarrhea type: unspecified type Qualified Code(s): R19.7 - Diarrhea, unspecified Code(s): R19.7 - Diarrhea, unspecified Status: Acute Assessment and Plan: Continues to have severe diarrhea for the last 2 weeks. -watery, dark in color -patient has been taking a lot of rice and potatoes to slow down the diarrhea -C diff and stool cultures have been obtained -GI following the patient (7) Anemia: Qualifiers: Anemia type: other cause Other causes of anemia: other cause, not classified Qualified Code(s): D64.89 - Other specified anemias Code(s): D64.9 - Anemia, unspecified Status: Acute Assessment and Plan: Likely due to GI bleed, patient also has anemia of chronic disease, also anemia secondary end-stage renal disease -will transfuse 1 unit of packed RBCs as patient dropped hemoglobin from 9.5-7.1 this morning. -will monitor H&H (8) DVT prophylaxis: Code(s): Z29.9 - Encounter for prophylactic measures, unspecified Status: Acute Assessment and Plan: SCDs Additional Plan Discussed with patient updated with her condition and plan of care. I answered all her questions. Will obtain EGD report from hospital in [facility], patient has signed release of information. Code status: Full code Critical care time spent: 49 minutes Due to a high probability of clinically significant, life threatening deterioration, the patient required my highest level of preparedness to intervene emergently and I personally spent this critical care time directly and personally managing the patient. This critical care time included obtaining a history; examining the patient; pulse oximetr
[2019-12-19 11:21] LABS: Glucose Point of Care 118 (65-105)
[2019-12-19 11:41] LABS: Lactic Acid 0.9 mmol/L (0.7-2.1)
--- NOTE | 2019-12-19 12:13 | WPDGICN ---
Assessment and Plan Assessment and plan (1) Gastrointestinal bleed: Code(s): K92.2 - Gastrointestinal hemorrhage, unspecified Status: Acute Assessment and Plan: Occult blood noted in stool. Patient has had a decline in hemoglobin over recent weeks. Recently identified as having gastric ulcers at an outlying hospital. Plan is to keep patient proton pump inhibitor. Transfuse to a stable hemoglobin EGD will be performed as well as colonoscopy after preparation on Sunday. (2) Anemia of chronic disease: Code(s): D63.8 - Anemia in other chronic diseases classified elsewhere Status: Acute (3) End stage renal disease on dialysis: Code(s): N18.6 - End stage renal disease; Z99.2 - Dependence on renal dialysis Status: Chronic Assessment and Plan: Patient requires dialysis because of end-stage renal disease apparently is on the transplant list in [place]. At the present time in the intensive care unit because of hyperkalemia. This is improved with Kayexalate therapy. Plan to defer endoscopy until electrolyte status is and more reasonable balance. Anticipate GI endoscopy Sunday. (4) Atrial fibrillation: Code(s): I48.91 - Unspecified atrial fibrillation Status: Chronic (5) Type 2 diabetes mellitus: Qualifiers: Diabetes mellitus termite treater helper insulin use: without termite treater helper use Diabetes mellitus complication status: without complication Qualified Code(s): E11.9 - Type 2 diabetes mellitus without complications Code(s): E11.9 - Type 2 diabetes mellitus without complications Status: Acute (6) History of gastric ulcer: Code(s): Z87.19 - Personal history of other diseases of the digestive system Status: Acute Assessment and Plan: Because of history of gastric ulcer 1 month ago. Now with occult blood in stool in decline in hemoglobin follow-up EGD will be anticipated. Plan will be maintained on Protonix in the interim period nonsteroidal anti-inflammatory agent should be help. (7) Diarrhea: Qualifiers: Diarrhea type: unspecified type Qualified Code(s): R19.7 - Diarrhea, unspecified Code(s): R19.7 - Diarrhea, unspecified Status: Acute Assessment and Plan: Patient has had significant diarrhea as an outpatient over the last 1 month. Plan is to obtain stool cultures. Colonoscopy anticipated on Sunday after preparation Sunday. GI Consult Note Consult date/time: 12/19/19 12:13 HPI: Shasta Obando is a 74 year old female seen in evaluation at the request of the distillation operator helper service. Patient has a history of bleeding gastric ulcer 1 month ago. She has been followed by Dr. Coppola she reports feeling generalized body aches weakness fatigue was evaluated and found to have markedly elevated serum potassium. For this reason and was admitted to the hospital and subsequently through the intensive care unit. She has a history of end-stage renal disease on dialysis in fact is on the renal transplant list at the [place]. 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 During this hospital stay she had significant GI bleeding. Endoscopy at that time was performed found a gastric ulcer. Over the last month she has had ongoing diarrhea. This has been poorly responsive to outpatient management. No response to a trial of antibiotics she was anticipated that she would be evaluated with colonoscopy on Sunday in 3 days however because of weakness she presented the hospital was found to be hyperkalemic and was admitted to the hospital. Currently her stool samples have been noted to be black in nature. And stool has been confirmed be Hemoccult-positive. A decline in her hemoglobin has been identified over the last month. Patient patient herself is comfortable denies abdominal pain. Has been tolerating diet. Baseline hemoglobin of approximately 9 was noted to be approximately 6-1/2 on presentat
--- NOTE | 2019-12-19 14:00 | PM.CNNEP ---
Assessment and Plan Assessment and plan (1) End stage renal disease: Code(s): N18.6 - End stage renal disease Status: Chronic (2) Hyperkalemia: Code(s): E87.5 - Hyperkalemia Status: Acute (3) Anemia: Qualifiers: Anemia type: other cause Other causes of anemia: other cause, not classified Qualified Code(s): D64.89 - Other specified anemias Code(s): D64.9 - Anemia, unspecified Status: Acute (4) Hypotension: Qualifiers: Hypotension type: unspecified hypotension type Qualified Code(s): I95.9 - Hypotension, unspecified Code(s): I95.9 - Hypotension, unspecified Status: Acute (5) Diarrhea: Qualifiers: Diarrhea type: unspecified type Qualified Code(s): R19.7 - Diarrhea, unspecified Code(s): R19.7 - Diarrhea, unspecified Status: Acute Assessment and Plan: . Additional Plan Shasta has end-stage renal disease. She had severe hyperkalemia on admission labs and received emergency dialysis earlier this morning in effort to compensate for this problem. Her repeat labs this morning show significant improvement in her potassium level. I suspect her hyperkalemia was precipitated by her excessive intake of potatoes that she was taking to help with her diarrhea. Furthermore, review of her outpatient labs also demonstrates that she has had issues with high potassium in the past. Her dialysis treatment earlier this morning was somewhat complicated by significant hypotension but as she did not appear to be volume overloaded she was given several fluid boluses during her dialysis treatment to maintain her mean arterial pressure. Given the significant diarrhea it is suspected that she was probably hypovolemic leading to the aforementioned hypotension. Further complicating matters is her ongoing issues and problems with anemia thought to be secondary to a GI bleed. Her relative anemia may have also been playing a role with regard to her hypotension. Gastroenterology has already been consulted and I believe she was scheduled for an outpatient EGD/colonoscopy which is an be which has been rescheduled for this coming Sunday. I will continue high-dose Epogen with dialysis in effort to try to maintain her hemoglobin and hematocrit. Given the severity of her hyperkalemia, I worry about the possibility of ?rebound hyperkalemia? and she may require further dialysis tomorrow depending on the trend of her potassium levels. For now, I would continue to follow her CKD parameters with adjustments in her medications and dialysis prescription to maintain stability of these issues. I will continue to follow the patient with you while she remains hospitalized and make further recommendations during her hospital course. Thank you for allowing me to participate in the care this patient. History of Present Illness Reason for Consult Consult date: 12/20/19 Reason for consult: end stage renal disease Chief Complaint Chief complaint: Fall, increasing weakness History of Present Illness Narrative: 74 year old female with a significant past medical history as outlined below who presented to the [facility] ER yesterday evening with complaints of increasing weakness, s/p fall, and diarrhea. She states that all of these symptoms having ongoing for the last 1 - 2 weeks and appears to be getting progressively worse. She describes the diarrha as watery and somewhat dark in color. She apparently was recently hospitalized for anemia recently and had an EGD which demonstrates a gastric ulcer(?) but she is not clear on the details. Because of the ongoing diarrhea, she was taking significant amounts of rise and potatoes in the hopes of making her stools more formed. Yesterday, her weakness was so pronouced that she was transferring herself from the toilet to her wheelchair she fell. She denied hitting her head anywhere or loss of consciousness. She reports no fevers, chills,
--- NOTE | 2019-12-19 14:05 | PM.IMPN ---
Progress Note: A&P Assessment and Plan (1) Acute hyperkalemia: Code(s): E87.5 - Hyperkalemia Status: Acute Assessment and Plan: Likely due to ingestion of high potassium foods i.e. potatoes. As I was leaving the patient's room the dialysis nurse had arrived to start dialysis. At the time of this dictation the patient had to be taken off dialysis early due to hypotension. Patient did not have any fluid removed during dialysis and only had her blood filtered. I have ordered 50 gram of albumin x1 Nephrology has been consulted for dialysis management. Patient has been placed in the ICU for close monitoring in the bottling supervisor was consulted from the ER. The patient's wide complex bradycardia has resolved with treatment of her hyperkalemia. 12/19/19 14:05 Patient is 74-year-old female with history of diabetes hypertension end-stage renal disease on hemodialysis patient had been having diarrhea for over a month on and off and to help her diarrhea patient had been eating rice and potato chips patient presented emergency department with a complaint of type the difficulty with ambulation and continue to have diarrhea, patient was found to potassium of 9, patient did have dialysis as an outpatient was not able to tolerate and dialysis was not completely, currently patient states feeling little better and diarrhea have improved, the patient in ICU due to elevated potassium, patient denies any chest pain palpitation or shortness of breath, patient denies any fever or chills, patient was also found to have a positive stool Hemoccult seen by GI a further workup including EGD and colonoscopy performed once patient clinically stable, patient is seen by slat basket maker helper and will have scheduled dialysis (2) End stage renal disease on dialysis: Code(s): N18.6 - End stage renal disease; Z99.2 - Dependence on renal dialysis Status: Chronic Assessment and Plan: The patient is being taken off of dialysis at the time of my dictation due to hypotension. Nephrology has been consulted. Repeat BMP and CBC have been ordered Subjective Date/time seen: 12/19/19 14:05 Patient is 74-year-old female with history of diabetes hypertension end-stage renal disease on hemodialysis patient had been having diarrhea for over a month on and off and to help her diarrhea patient had been eating rice and potato chips patient presented emergency department with a complaint of type the difficulty with ambulation and continue to have diarrhea, patient was found to potassium of 9, patient did have dialysis as an outpatient was not able to tolerate and dialysis was not completely, currently patient states feeling little better and diarrhea have improved, the patient in ICU due to elevated potassium, patient denies any chest pain palpitation or shortness of breath, patient denies any fever or chills, patient was also found to have a positive stool Hemoccult seen by GI a further workup including EGD and colonoscopy performed once patient clinically stable, patient is seen by slat basket maker helper and will have scheduled dialysis Review of Systems Review of Systems: All systems reviewed & are unremarkable except as noted in HPI and below Exam Const: General: comfortable and no acute distress HENMT: General nose exam: Normal nares present Mouth: Yes moist mucous membranes Eyes: General: appearance normal, both eyes and all related structures Sclera: sclerae normal Neck: Neck: supple Resp: Effort & Inspection: normal respiratory effort Auscultation: clear to auscultation bilaterally Cardio: Rate: regular rate Rhythm: regular rhythm GI: Auscultation: normal bowel sounds Skin: General skin exam: normal color Neuro: Speech: normal speech Sensory Exam: normal sensation Extrem: General: normal to inspection Psych: Affect: Anxious affect present Objective Data Vital Signs Vital Signs: Vital Signs - 24 hr 12/18/19 20:17 12/18/19 20:30 12/18/19 21:
[2019-12-19 16:17] LABS: Glucose Point of Care 117 (65-105)
[2019-12-19 20:01] LABS: Hematocrit 30.6 % (37.0-47.0); Hemoglobin 8.6 g/dL (12.0-15.0)
[2019-12-19] MEDS: PANTOPRAZOLE SODIUM IV 40 MG VIAL IV PUSH (20:08)
[2019-12-19 20:15] LABS: Glucose Point of Care 135 (65-105)
[2019-12-20] VITALS (13 sets, daily range): BP systolic 120–155; BP diastolic 50–99; PULSE 76–100; RESP 17–25; TEMP 36.6–37.7; O2SAT 95–100
[2019-12-20 04:25] LABS: Basophils Percent Auto 0.4 % (0.2-1.2); Eosinophils Absolute Auto 0.2 K/mm3 (0-0.3); Eosinophils Percent Auto 1.4 % (0-4.4); Hematocrit 30.3 % (37.0-47.0); Hemoglobin 8.5 g/dL (12.0-15.0); Immature Granulocyte Absolute 0.04 K/mm3 (0.00-0.031); Immature Granulocyte Percent A 0.4 % (0-0.5); Lymphocytes Percent Auto 12.1 % (18.3-44.2); Mean Corpuscular HGB Conc 28.1 g/dl (32-36); Mean Corpuscular Hemoglobin 28.3 pg (26-34); Mean Platelet Volume 10.4 fl (7.4-10.4); Monocytes Percent Auto 9.2 % (2.6-8.5); Neutrophils Absolute Auto 8.3 K/mm3 (1.3-6.7); Neutrophils Percent Auto 76.5 % (45.5-73.1); Platelet Count Result 198 k/mm3 (150-375); White Blood Count 10.8 K/mm3 (4.5-10.0)
[2019-12-20 04:37] LABS: Alanine Aminotransferase 17 U/L (4-35); Albumin Level 3.4 g/dL (3.5-5.1); Alkaline Phosphatase 136 U/L (38-126); Aspartate Amino Transferase 32 U/L (14-36); Bilirubin,Total 0.7 mg/dL (0.2-1.3); Blood Urea Nitrogen 13 mg/dL (7-17); Calcium 5.8 mg/dL (8.4-10.2); Carbon Dioxide 34 mmol/L (22-30); Chloride 94 mmol/L (98-107); Estimated Glomerular Filt Rate 17; Glucose 100 mg/dL (65-105); Magnesium 2.3 mg/dL (1.6-2.3); Phosphorus 1.2 mg/dL (2.5-4.5); Potassium 5.1 mmol/L (3.4-5.0); Sodium 133 mmol/L (137-145)
[2019-12-20 04:39] LABS: Lactic Acid < 0.5 mmol/L (0.7-2.1)
[2019-12-20 04:54] LABS: Platelet Estimate Adequate (Adequate)
[2019-12-20 04:55] LABS: Macrocytosis 2+ (NORMAL)
[2019-12-20 04:56] LABS: Hypochromasia 1+ (NORMAL)
--- NOTE | 2019-12-20 07:58 | WPDGIPROGNO ---
Progress Note: A&P Additional Plan Patient comfortable at rest. No signs for active her continued GI bleeding. She denies abdominal pain. She feels better after dialysis. Physical exam reveals her to be alert. She is anicteric. Lungs are clear. Heart without murmur. Abdomen is soft and nontender. Impression 1. End-stage renal disease. Patient remains on dialysis. Electrolyte imbalance improving after dialysis. 2. Diarrhea. Dark melenic stools are described. Previous workup revealed a gastric ulcer. Plan is for both colonoscopy an EGD on Sunday. Current hemoglobin is stable. Will keep patient on proton pump inhibitor for ulcer therapy. Stool cultures in progress. 3. His gastric ulcer. Identified at time of hospital stay and granted City. Follow-up EGD Sunday. Subjective Date/time seen: 12/20/19 07:58 Objective Data Vital Signs Vital Signs: Vital Signs - 24 hr 12/19/19 08:00 12/19/19 10:00 12/19/19 12:00 Temperature 36.9 C 36.8 C Pulse Rate 71 77 81 Respiratory Rate 18 21 H 15 Blood Pressure 111/89 104/21 L 106/75 Pulse Oximetry 100 100 100 12/19/19 14:00 12/19/19 15:52 12/19/19 16:00 Temperature 37.1 C Pulse Rate 77 76 80 Respiratory Rate 20 18 Blood Pressure 104/55 L 103/58 L Pulse Oximetry 98 100 12/19/19 16:09 12/19/19 16:27 12/19/19 17:30 Temperature 37.1 C 37.7 C H 37.6 C Pulse Rate 82 86 86 Respiratory Rate 18 22 H 20 Blood Pressure 123/55 L 116/77 125/50 L Pulse Oximetry 100 100 100 12/19/19 18:00 12/19/19 18:10 12/19/19 20:00 Temperature 37.6 C 37.5 C Pulse Rate 86 80 76 Respiratory Rate 23 H 20 25 H Blood Pressure 115/45 L 116/45 L 153/82 H Pulse Oximetry 100 100 99 12/19/19 21:42 12/20/19 00:00 12/20/19 01:47 Temperature 37.5 C Pulse Rate 91 80 86 Respiratory Rate 24 H 17 17 Blood Pressure 124/74 124/67 120/99 H Pulse Oximetry 100 100 100 12/20/19 04:00 12/20/19 06:00 Temperature 37.1 C Pulse Rate 90 88 Respiratory Rate 21 H 25 H Blood Pressure 152/72 H 120/59 L Pulse Oximetry 99 100 Intake/Output Intake/Output: Intake & Output 12/17/19 12/18/19 12/19/19 12/20/19 23:59 23:59 23:59 23:59 Intake Total 996 240 Output Total 250 0 Balance 746 240 Meds/Results Medications: Active Medications Generic Name Dose Route Start Last Admin Trade Name Freq PRN Reason Stop Dose Admin Acetaminophen 650 mg 12/19/19 03:29 12/19/19 14:37 Tylenol Tablet PO 650 mg Q4H PRN Administration Mild Pain (1-3) or Fever Albuterol 2 puff 12/19/19 05:45 Proventil Hfa INHALATION QIDRT PRN shortness of breath or wheezing Aspirin 81 mg 12/19/19 08:00 12/19/19 08:57 Aspirin Chewable PO Not Given DAILY@0800 THERESE Cyanocobalamin 500 mcg 12/19/19 09:00 12/19/19 08:52 Vitamin B-12 Tab PO 500 mcg DAILY THERESE Administration Dextrose 12.5 gm 12/19/19 11:02 Dextrose 50% Syringe IV PUSH PRN PRN Hypoglycemia Protocol Glucagon 1 mg 12/19/19 11:02 Glucagon For Inj IM PRN PRN Hypoglycemia Protocol Glucose 15 gm 12/19/19 11:02 Glutose 15 PO PRN PRN Hypoglycemia Protocol Dextrose 1,000 mls @ 100 mls/hr 12/19/19 11:02 Dextrose 5% 1,000 Ml IVPB PRN PRN Hypoglycemia Protocol Lactated Ringer's 1,000 mls @ 150 mls/hr 12/19/19 13:40 12/19/19 14:34 Lr - Lactated Ringers Iv IV CONT Not Given .[id number] [facility] Insulin Aspart 2 - 5 units 12/19/19 12:00 12/19/19 16:14 Novolog SUB-Q Not Given TIDWM [facility] Protocol Insulin Glargine 10 units 12/19/19 21:00 12/19/19 20:11 Lantus SUB-Q 01/18/20 21:01 Not Given HS [facility] Lidocaine HCl 0.3 ml 12/19/19 13:38 Xylocaine 2% Local Inj INTRADERM ONCE PRN to numb area Pantoprazole Sodium 40 mg 12/19/19 21:00 12/19/19 20:08 Protonix Iv IV PUSH 40 mg Q12HR THERESE Administration Polyethylene Glycol/Electrolytes 4,000 ml 12/21/19 12:20 Colyte-Fl
[2019-12-20 08:03] LABS: Glucose Point of Care 95 (65-105)
--- NOTE | 2019-12-20 08:38 | WPDINTPN ---
Progress Note: A&P Assessment and Plan (1) Acute hyperkalemia: Code(s): E87.5 - Hyperkalemia Status: Acute Assessment and Plan: Patient with acute hyperkalemia most likely related to foods high in potassium i.e. potatoes. Patient was taking excess potatoes for her diarrhea. Discussed with nephrology who stated that her potassium normally runs a little high even at the dialysis center. -hyperkalemia was aggressively treated, repeat potassium level this morning is 5.1 -will discuss with Nephrology regarding dialysis. -will continue to monitor potassium levels closely (2) Hypotension: Qualifiers: Hypotension type: unspecified hypotension type Qualified Code(s): I95.9 - Hypotension, unspecified Code(s): I95.9 - Hypotension, unspecified Status: Acute Assessment and Plan: RESOLVED Patient hypotensive likely related to GI bleed secondary drop in hemoglobin, diarrhea with dark stools, hypovolemia, dehydration -patient has been given albumin, Hespan -will try and replete volume loss (3) Gastrointestinal bleed: Code(s): K92.2 - Gastrointestinal hemorrhage, unspecified Status: Acute Assessment and Plan: Patient with dark stools, -recently had an EGD at [facility], according the patient the found a gastric ulcer -will obtain EGD results from outside hospital -stools positive for occult blood -continue Carafate, Protonix IV q.12 hours -appreciate GI evaluation recommendation, EGD and possible colonoscopy scheduled for 12/22/2019 (4) Type 2 diabetes mellitus: Qualifiers: Diabetes mellitus fdc insulin use: without keno terminal operator use Diabetes mellitus complication status: without complication Qualified Code(s): E11.9 - Type 2 diabetes mellitus without complications Code(s): E11.9 - Type 2 diabetes mellitus without complications Status: Acute Assessment and Plan: Accu-Cheks and sliding scale insulin (5) End stage renal disease on dialysis: Code(s): N18.6 - End stage renal disease; Z99.2 - Dependence on renal dialysis Status: Chronic Assessment and Plan: Patient with end-stage renal disease on dialysis Sunday, Sunday, Sunday -nephrology following the patient, dialysis per machine heel sprayer -she is on transplant list at [facility] (6) Diarrhea: Qualifiers: Diarrhea type: unspecified type Qualified Code(s): R19.7 - Diarrhea, unspecified Code(s): R19.7 - Diarrhea, unspecified Status: Acute Assessment and Plan: Continues to have severe diarrhea for the last 2 weeks. -watery, dark in color -patient has been taking a lot of rice and potatoes to slow down the diarrhea -C diff and stool cultures have been obtained and pending -GI following the patient (7) Anemia: Qualifiers: Anemia type: other cause Other causes of anemia: other cause, not classified Qualified Code(s): D64.89 - Other specified anemias Code(s): D64.9 - Anemia, unspecified Status: Acute Assessment and Plan: Likely due to GI bleed, patient also has anemia of chronic disease, also anemia secondary end-stage renal disease -1 unit packed RBCs transfused on 12/19/2019, hemoglobin improved and stable -will monitor H&H (8) DVT prophylaxis: Code(s): Z29.9 - Encounter for prophylactic measures, unspecified Status: Acute Assessment and Plan: SCDs Additional Plan Discussed with patient updated with her condition and plan of care. I answered all her questions. Code status: Full code Critical care time spent: 32 minutes Due to a high probability of clinically significant, life threatening deterioration, the patient required my highest level of preparedness to intervene emergently and I personally spent this critical care time directly and personally managing the patient. This critical care time included obtaining a history; examining the patient; pulse
[2019-12-20] MEDS: VITAMIN B CMPLX/VIT C/FOLIC AC 1 CAPSULE 1 CAP PO (09:26)
[2019-12-20] MEDS: CYANOCOBALAMIN 500 MCG TABLET PO (09:27)
[2019-12-20] MEDS: SUCRALFATE 1 GM TABLET PO ×3 (09:27→17:09)
[2019-12-20] MEDS: PANTOPRAZOLE SODIUM IV 40 MG VIAL IV PUSH ×2 (09:27→20:49)
[2019-12-20 12:11] LABS: Glucose Point of Care 161 (65-105)
--- NOTE | 2019-12-20 12:18 | PM.PNNEP ---
Progress Note: A&P Assessment and Plan (1) End stage renal disease: Code(s): N18.6 - End stage renal disease Status: Chronic Assessment and Plan: plan next HD on Sunday and continue M/W/F schedule follow electrolytes, volume status, and clearacne (2) Hyperkalemia: Code(s): E87.5 - Hyperkalemia Status: Acute Assessment and Plan: corrected with dialytic intervention follow trend for now (3) Anemia: Qualifiers: Anemia type: other cause Other causes of anemia: other cause, not classified Qualified Code(s): D64.89 - Other specified anemias Code(s): D64.9 - Anemia, unspecified Status: Acute Assessment and Plan: H/H low guaiac positive stools s/p PRBC transfusion GI following - EGD and colonoscopy possibly on Sunday (4) Hypotension: Qualifiers: Hypotension type: unspecified hypotension type Qualified Code(s): I95.9 - Hypotension, unspecified Code(s): I95.9 - Hypotension, unspecified Status: Acute Assessment and Plan: thought to be secondary to volume depletion (for diarrhea + anemia) s/p resuscitation with IVF, albumin, hespan, and PRBC transfusion follow hemodynamics (5) Diarrhea: Qualifiers: Diarrhea type: unspecified type Qualified Code(s): R19.7 - Diarrhea, unspecified Code(s): R19.7 - Diarrhea, unspecified Status: Acute Assessment and Plan: improving at this time Will continue to follow. Subjective Date/time seen: 12/20/19 12:18 Appears to be doing reasonably well at this time; no apparent distress voiced at this time; feels reasonably well; noted plans for transfer out of ICU; no events overnight or earlier this AM. Exam Narrative: Exam Narrative: General: WD/WN male/female in NAD Heart: normal S1 and S2; no rub Lungs: clear to auscultation Abdomen: soft, nontender, nondistended, positive bowel sounds Extremities: no cyanosis or clubbing; no edema Skin: warm and dry Objective Data Vital Signs Vital Signs: Vital Signs Temp Pulse Resp BP Pulse Ox 12/20/19 12:00 36.6 C 88 21 H 155/78 H 98 12/20/19 10:00 100 20 143/56 H 100 12/20/19 08:00 37.0 C 92 24 H 155/59 H 95 12/20/19 06:00 88 25 H 120/59 L 100 12/20/19 04:00 37.1 C 90 21 H 152/72 H 99 12/20/19 01:47 86 17 120/99 H 100 12/20/19 00:00 37.5 C 80 17 124/67 100 12/19/19 21:42 91 24 H 124/74 100 12/19/19 20:00 37.5 C 76 25 H 153/82 H 99 12/19/19 18:10 37.6 C 80 20 116/45 L 100 12/19/19 18:00 86 23 H 115/45 L 100 12/19/19 17:30 37.6 C 86 20 125/50 L 100 12/19/19 16:27 37.7 C H 86 22 H 116/77 100 12/19/19 16:09 37.1 C 82 18 123/55 L 100 12/19/19 16:00 80 12/19/19 15:52 37.1 C 76 18 103/58 L 100 12/19/19 14:00 77 20 104/55 L 98 Intake/Output Intake/Output: Intake & Output 12/17/19 12/18/19 12/19/19 12/20/19 23:59 23:59 23:59 23:59 Intake Total 996 600 Output Total 250 0 Balance 746 600 Meds/Results Medications: Active Medications Generic Name Dose Route Start Last Admin Trade Name Freq PRN Reason Stop Dose Admin Acetaminophen 650 mg 12/19/19 03:29 12/19/19 14:37 Tylenol Tablet PO 650 mg Q4H PRN Administration Mild Pain (1-3) or Fever Albuterol 2 puff 12/19/19 05:45 Proventil Hfa INHALATION QIDRT PRN shortness of breath or wheezing Cyanocobalamin 500 mcg 12/19/19 09:00 12/20/19 09:27 Vitamin B-12 Tab PO 500 mcg DAILY THERESE Administration Dextrose 12.5 gm 12/19/19 11:02 Dextrose 50% Syringe IV PUSH PRN PRN Hypoglycemia Protocol Glucagon 1 mg 12/19/19 11:02 Glucagon For Inj IM PRN PRN Hypoglycemia Protocol Glucose 15 gm 12/19/19 11:02 Glutose 15 PO PRN PRN Hypoglycemia Protocol Dextrose 1,000 mls @ 100 mls/hr 12/19/19 11:02 Dextrose 5% 1,000 Ml IVPB
--- NOTE | 2019-12-20 16:20 | PC.NURSE ---
This patient, Shasta Obando, was transferred to [facility] on 12/20/19 at 1620. Personal belongings sent with patient. Belongings list checked. Report given to Ignacia KRAFT. Appropriate documentation sent with patient.
--- NOTE | 2019-12-20 16:25 | PC.NURSE ---
This patient, Shasat Obando, was received from ICU-6 into [facility] on 12/20/19 at 1625. Personal belongings list checked and signed. Patient/family oriented to unit policies and routines
[2019-12-20 16:52] LABS: Glucose Point of Care 152 (65-105)
--- NOTE | 2019-12-20 17:46 | PM.IMPN ---
Progress Note: A&P Assessment and Plan (1) Acute hyperkalemia: Code(s): E87.5 - Hyperkalemia Status: Acute Assessment and Plan: Likely due to ingestion of high potassium foods i.e. potatoes. As I was leaving the patient's room the dialysis nurse had arrived to start dialysis. At the time of this dictation the patient had to be taken off dialysis early due to hypotension. Patient did not have any fluid removed during dialysis and only had her blood filtered. I have ordered 50 gram of albumin x1 Nephrology has been consulted for dialysis management. Patient has been placed in the ICU for close monitoring in the bulk driver was consulted from the ER. The patient's wide complex bradycardia has resolved with treatment of her hyperkalemia. 12/20/19 17:46 Patient is 74-year-old female with history of diabetes hypertension end-stage renal disease on hemodialysis patient had been having diarrhea for over a month on and off and to help her diarrhea patient had been eating rice and potato chips patient presented emergency department with a complaint of type the difficulty with ambulation and continue to have diarrhea, patient was found to potassium of 9, patient did have dialysis as an outpatient was not able to tolerate and dialysis was not completely, currently patient states feeling little better and diarrhea have improved, the patient in ICU due to elevated potassium, today patient potassium is 5, patient denies any chest pain palpitation or shortness of breath, patient denies any fever or chills, patient was also found to have a positive stool Hemoccult seen by GI a further workup including EGD and colonoscopy will be performed once patient clinically stable, patient is seen by outside physical damage appraiser and will have scheduled dialysis on Sunday (2) End stage renal disease on dialysis: Code(s): N18.6 - End stage renal disease; Z99.2 - Dependence on renal dialysis Status: Chronic Assessment and Plan: The patient is being taken off of dialysis at the time of my dictation due to hypotension. Nephrology has been consulted. Repeat BMP and CBC have been ordered Subjective Date/time seen: 12/20/19 17:46 Patient is 74-year-old female with history of diabetes hypertension end-stage renal disease on hemodialysis patient had been having diarrhea for over a month on and off and to help her diarrhea patient had been eating rice and potato chips patient presented emergency department with a complaint of type the difficulty with ambulation and continue to have diarrhea, patient was found to potassium of 9, patient did have dialysis as an outpatient was not able to tolerate and dialysis was not completely, currently patient states feeling little better and diarrhea have improved, the patient in ICU due to elevated potassium, today patient potassium is 5, patient denies any chest pain palpitation or shortness of breath, patient denies any fever or chills, patient was also found to have a positive stool Hemoccult seen by GI a further workup including EGD and colonoscopy will be performed once patient clinically stable, patient is seen by outside physical damage appraiser and will have scheduled dialysis on Sunday Review of Systems Review of Systems: All systems reviewed & are unremarkable except as noted in HPI and below Exam Const: General: comfortable and no acute distress HENMT: General nose exam: Normal nares present Eyes: General: appearance normal, both eyes and all related structures Sclera: sclerae normal Neck: Neck: supple Resp: Effort & Inspection: normal respiratory effort Auscultation: clear to auscultation bilaterally Cardio: Rate: regular rate Rhythm: regular rhythm GI: Auscultation: normal bowel sounds Skin: General skin exam: normal color Neuro: Speech: normal speech Sensory Exam: normal sensation Extrem: General: normal to inspection Psych: Affect: Anxious affect present Objective Data Vital Signs Vital Signs: V
[2019-12-20 20:41] LABS: Glucose Point of Care 207 (65-105)
[2019-12-20] MEDS: ACETAMINOPHEN 325 MG TABLET 650 MG PO (21:10)
[2019-12-21] VITALS (10 sets, daily range): BP systolic 131–169; BP diastolic 56–81; PULSE 74–90; RESP 16–20; TEMP 36.2–37.2; O2SAT 98–100
[2019-12-21 05:30] LABS: Basophils Percent Auto 0.4 % (0.2-1.2); Eosinophils Absolute Auto 0.1 K/mm3 (0-0.3); Eosinophils Percent Auto 1.2 % (0-4.4); Hematocrit 30.2 % (37.0-47.0); Hemoglobin 8.7 g/dL (12.0-15.0); Immature Granulocyte Absolute 0.03 K/mm3 (0.00-0.031); Immature Granulocyte Percent A 0.4 % (0-0.5); Lymphocytes Absolute Auto 1.33 K/mm3 (0.9-3.2); Lymphocytes Percent Auto 16.6 % (18.3-44.2); Mean Corpuscular HGB Conc 28.8 g/dl (32-36); Mean Corpuscular Hemoglobin 28.8 pg (26-34); Mean Platelet Volume 11.8 fl (7.4-10.4); Monocytes Absolute Auto 0.9 K/mm3 (0.1-0.6); Monocytes Percent Auto 11.4 % (2.6-8.5); Neutrophils Absolute Auto 5.6 K/mm3 (1.3-6.7); Platelet Count Result 204 k/mm3 (150-375); Red Blood Count 3.02 M/mm3 (4.2-5.4)
[2019-12-21 05:45] LABS: Blood Urea Nitrogen 31 mg/dL (7-17); Calcium 7.4 mg/dL (8.4-10.2); Carbon Dioxide 29 mmol/L (22-30); Chloride 94 mmol/L (98-107); Estimated Glomerular Filt Rate 11; Glucose 114 mg/dL (65-105); Magnesium 2.4 mg/dL (1.6-2.3); Phosphorus 2.2 mg/dL (2.5-4.5); Potassium 4.9 mmol/L (3.4-5.0); Sodium 132 mmol/L (137-145)
[2019-12-21 05:49] LABS: Platelet Estimate Adequate (Adequate)
[2019-12-21 05:50] LABS: Hypochromasia 1+ (NORMAL); Macrocytosis 1+ (NORMAL)
--- NOTE | 2019-12-21 07:56 | WPDGIPROGNO ---
Progress Note: A&P Additional Plan Patient alert and comfortable this morning. States her stools become what somewhat darker. She denies obvious blood in her stools at this time. Physical exam reveals her to be alert. Comfortable at rest. She is anicteric. Lungs are clear. Heart without murmur. Abdomen is soft and nontender. Labs reveal hemoglobin 8.7, hematocrit 30.2, this appears stable at this time. BUN 31, creatinine 4.1, Impression 1. GI bleeding. Plan is for both colonoscopy an EGD in the morning after preparation today. No active bleeding noted at this time. She has had ongoing diarrhea this appears to have lessened. 2. Gastric ulcer. Diagnosed 1-2 months ago. Plan is to evaluate this by endoscopy in the morning. 3. End-stage renal disease. Patient remains on dialysis. Subjective Date/time seen: 12/21/19 07:56 Objective Data Vital Signs Vital Signs: Vital Signs - 24 hr 12/20/19 08:00 12/20/19 10:00 12/20/19 12:00 Temperature 37.0 C 36.6 C Pulse Rate 92 100 81 Respiratory Rate 24 H 20 21 H Blood Pressure 155/59 H 143/56 H 155/78 H Pulse Oximetry 95 100 98 12/20/19 14:00 12/20/19 16:00 12/20/19 18:26 Temperature 37.7 C H Pulse Rate 88 84 76 Respiratory Rate 24 H Blood Pressure 147/50 H Pulse Oximetry 98 12/20/19 20:00 12/20/19 20:13 12/20/19 22:00 Temperature 36.9 C Pulse Rate 87 91 81 Respiratory Rate 20 Blood Pressure 149/58 H Pulse Oximetry 95 12/21/19 00:00 12/21/19 00:04 12/21/19 02:00 Temperature 36.2 C L Pulse Rate 74 78 77 Respiratory Rate 16 Blood Pressure 140/57 L Pulse Oximetry 99 12/21/19 03:50 12/21/19 04:00 12/21/19 06:00 Temperature 36.5 C Pulse Rate 90 77 79 Respiratory Rate 20 Blood Pressure 131/64 Pulse Oximetry 100 Intake/Output Intake/Output: Intake & Output 12/18/19 12/19/19 12/20/19 12/21/19 23:59 23:59 23:59 23:59 Intake Total 996 1180 250 Output Total 250 500 Balance 746 680 250 Meds/Results Medications: Active Medications Generic Name Dose Route Start Last Admin Trade Name Freq PRN Reason Stop Dose Admin Acetaminophen 650 mg 12/19/19 03:29 12/20/19 21:10 Tylenol Tablet PO 650 mg Q4H PRN Administration Mild Pain (1-3) or Fever Albuterol 2 puff 12/19/19 05:45 Proventil Hfa INHALATION QIDRT PRN shortness of breath or wheezing Cyanocobalamin 500 mcg 12/19/19 09:00 12/20/19 09:27 Vitamin B-12 Tab PO 500 mcg DAILY THERESE Administration Dextrose 12.5 gm 12/19/19 11:02 Dextrose 50% Syringe IV PUSH PRN PRN Hypoglycemia Protocol Glucagon 1 mg 12/19/19 11:02 Glucagon For Inj IM PRN PRN Hypoglycemia Protocol Glucose 15 gm 12/19/19 11:02 Glutose 15 PO PRN PRN Hypoglycemia Protocol Dextrose 1,000 mls @ 100 mls/hr 12/19/19 11:02 Dextrose 5% 1,000 Ml IVPB PRN PRN Hypoglycemia Protocol Lactated Ringer's 1,000 mls @ 150 mls/hr 12/22/19 07:00 Lr - Lactated Ringers Iv IV CONT .Q6H40M [facility] Insulin Aspart 2 - 5 units 12/19/19 12:00 12/20/19 17:04 Novolog SUB-Q Not Given TIDWM [facility] Protocol Insulin Glargine 10 units 12/19/19 21:00 12/20/19 20:54 Lantus SUB-Q 01/18/20 21:01 Not Given HS [facility] Lidocaine HCl 0.3 ml 12/19/19 13:38 Xylocaine 2% Local Inj INTRADERM ONCE PRN to numb area Pantoprazole Sodium 40 mg 12/19/19 21:00 12/20/19 20:49 Protonix Iv IV PUSH 40 mg Q12HR THERESE Administration Polyethylene Glycol/Electrolytes 4,000 ml 12/21/19 12:20 Colyte-Flavored PO 12/21/19 12:21 ONCE ONE Sucralfate 1 gm 12/19/19 08:00 12/20/19 17:09 Carafate PO 1 gm TIDWM THERESE Administration Vitamin B Complex/Folic Acid 1 cap 12/19/19 09:00 12/20/19 09:26 Nephrocaps Softgel PO 1 cap DAILY THERESE Administration Radiology Results: ITS Impressions Chest X-Ray 12/19/19 08:35 IMPRESSION: 1.
[2019-12-21 08:25] LABS: Glucose Point of Care 126 (65-105)
[2019-12-21] MEDS: SUCRALFATE 1 GM TABLET PO ×3 (08:34→17:31)
[2019-12-21] MEDS: VITAMIN B CMPLX/VIT C/FOLIC AC 1 CAPSULE 1 CAP PO (08:35)
[2019-12-21] MEDS: PANTOPRAZOLE SODIUM IV 40 MG VIAL IV PUSH ×2 (08:35→20:22)
[2019-12-21] MEDS: CYANOCOBALAMIN 500 MCG TABLET PO (08:35)
[2019-12-21] MEDS: ACETAMINOPHEN 325 MG TABLET 650 MG PO (08:42)
[2019-12-21 11:48] LABS: Glucose Point of Care 155 (65-105)
--- NOTE | 2019-12-21 12:12 | PC.NURSE ---
This patient, Shasta Obando, was transferred to [facility] on 12/21/19 at 1212 via hospital bed. Personal belongings sent with patient. Belongings list checked and signed with receiving RN. Report given to ABENA Argueta. Appropriate documentation sent with patient.
--- NOTE | 2019-12-21 13:18 | PM.PNNEP ---
Progress Note: A&P Assessment and Plan (1) End stage renal disease: Code(s): N18.6 - End stage renal disease Status: Chronic Assessment and Plan: HD tomorrow and continue M/W/F schedule follow electrolytes, volume status, and clearance (2) Hyperkalemia: Code(s): E87.5 - Hyperkalemia Status: Acute Assessment and Plan: corrected with dialytic intervention due to dietary indiscretion prior to admission (potatoes) follow trend for now (3) Anemia: Qualifiers: Anemia type: other cause Other causes of anemia: other cause, not classified Qualified Code(s): D64.89 - Other specified anemias Code(s): D64.9 - Anemia, unspecified Status: Acute Assessment and Plan: H/H low but stable guaiac positive stools s/p PRBC transfusion GI following - EGD and colonoscopy tomorrow (4) Hypotension: Qualifiers: Hypotension type: unspecified hypotension type Qualified Code(s): I95.9 - Hypotension, unspecified Code(s): I95.9 - Hypotension, unspecified Status: Acute Assessment and Plan: thought to be secondary to volume depletion (from diarrhea + anemia) s/p resuscitation with IVF, albumin, hespan, and PRBC transfusion -- BP doing better follow trend of hemodynamics (5) Diarrhea: Qualifiers: Diarrhea type: unspecified type Qualified Code(s): R19.7 - Diarrhea, unspecified Code(s): R19.7 - Diarrhea, unspecified Status: Acute Assessment and Plan: improving at this time Will continue to follow. Subjective Date/time seen: 12/21/19 13:18 Transferred out of ICU yesterday afternoon; diarrhea seems to be doing better; no other acute issues or problems overnight or earlier this AM; aware of plan for EGD + colonoscopy tomorrow. Exam Narrative: Exam Narrative: General: WD/WN female in NAD Heart: normal S1 and S2; no rub Lungs: clear to auscultation Abdomen: soft, nontender, nondistended, positive bowel sounds Extremities: no cyanosis or clubbing; trace edema Skin: warm and intact Objective Data Vital Signs Vital Signs: Vital Signs Temp Pulse Resp BP Pulse Ox 12/21/19 10:00 78 12/21/19 08:00 36.4 C L 81 16 148/66 H 98 12/21/19 06:00 79 12/21/19 04:00 77 12/21/19 03:50 36.5 C 90 20 131/64 100 12/21/19 02:00 77 12/21/19 00:04 36.2 C L 78 16 140/57 L 99 12/21/19 00:00 74 12/20/19 22:00 81 12/20/19 20:13 36.9 C 91 20 149/58 H 95 12/20/19 20:00 87 12/20/19 18:26 76 12/20/19 16:00 37.7 C H 84 24 H 147/50 H 98 12/20/19 14:00 88 Intake/Output Intake/Output: Intake & Output 12/18/19 12/19/19 12/20/19 12/21/19 23:59 23:59 23:59 23:59 Intake Total 996 1180 790 Output Total 250 500 Balance 746 680 790 Meds/Results Medications: Active Medications Generic Name Dose Route Start Last Admin Trade Name Freq PRN Reason Stop Dose Admin Acetaminophen 650 mg 12/19/19 03:29 12/21/19 08:42 Tylenol Tablet PO 650 mg Q4H PRN Administration Mild Pain (1-3) or Fever Albuterol 2 puff 12/19/19 05:45 Proventil Hfa INHALATION QIDRT PRN shortness of breath or wheezing Cyanocobalamin 500 mcg 12/19/19 09:00 12/21/19 08:35 Vitamin B-12 Tab PO 500 mcg DAILY THERESE Administration Dextrose 12.5 gm 12/19/19 11:02 Dextrose 50% Syringe IV PUSH PRN PRN Hypoglycemia Protocol Glucagon 1 mg 12/19/19 11:02 Glucagon For Inj IM PRN PRN Hypoglycemia Protocol Glucose 15 gm 12/19/19 11:02 Glutose 15 PO PRN PRN Hypoglycemia Protocol Dextrose 1,000 mls @ 100 mls/hr 12/19/19 11:02 Dextrose 5% 1,000 Ml IVPB PRN PRN Hypoglycemia Protocol Lactated Ringer's 1,000 mls @ 150 mls/hr 12/22/19 07:00 Lr - Lactated Ringers Iv IV CONT .Q6H40M [facility] Insulin Aspart 2 - 5 units 12/19/19 12:00 0
[2019-12-21] MEDS: PEG (High)/E-LYTE SOLN 4,000 ML BTL 4000 ML PO (13:22)
--- NOTE | 2019-12-21 13:31 | PM.IMPN ---
Progress Note: A&P Assessment and Plan (1) Acute hyperkalemia: Code(s): E87.5 - Hyperkalemia Status: Acute Assessment and Plan: Likely due to ingestion of high potassium foods i.e. potatoes. As I was leaving the patient's room the dialysis nurse had arrived to start dialysis. At the time of this dictation the patient had to be taken off dialysis early due to hypotension. Patient did not have any fluid removed during dialysis and only had her blood filtered. I have ordered 50 gram of albumin x1 Nephrology has been consulted for dialysis management. Patient has been placed in the ICU for close monitoring in the hand rounder was consulted from the ER. The patient's wide complex bradycardia has resolved with treatment of her hyperkalemia. 12/21/19 13:31 Patient is 74-year-old female with history of diabetes hypertension end-stage renal disease on hemodialysis patient had been having diarrhea for over a month on and off and to help her diarrhea patient had been eating rice and potato chips patient presented emergency department with a complaint of type the difficulty with ambulation and continue to have diarrhea, patient was found to potassium of 9, patient did have dialysis as an outpatient was not able to tolerate and dialysis was not completely, currently patient states feeling little better and diarrhea have improved, the patient in ICU due to elevated potassium, today patient potassium is 5, patient denies any chest pain palpitation or shortness of breath, patient denies any fever or chills, patient was also found to have a positive stool Hemoccult seen by GI a further workup including EGD and colonoscopy will be performed once patient clinically stable, which is scheduled for tomorrow, patient is seen by corporate bond trader and will have scheduled dialysis on Sunday, patient stats feels better, getting prep of GI procedure tomorrow. (2) End stage renal disease on dialysis: Code(s): N18.6 - End stage renal disease; Z99.2 - Dependence on renal dialysis Status: Chronic Assessment and Plan: The patient is being taken off of dialysis at the time of my dictation due to hypotension. Nephrology has been consulted. Repeat BMP and CBC have been ordered Subjective Date/time seen: 12/21/19 13:31 Patient is 74-year-old female with history of diabetes hypertension end-stage renal disease on hemodialysis patient had been having diarrhea for over a month on and off and to help her diarrhea patient had been eating rice and potato chips patient presented emergency department with a complaint of type the difficulty with ambulation and continue to have diarrhea, patient was found to potassium of 9, patient did have dialysis as an outpatient was not able to tolerate and dialysis was not completely, currently patient states feeling little better and diarrhea have improved, the patient in ICU due to elevated potassium, today patient potassium is 5, patient denies any chest pain palpitation or shortness of breath, patient denies any fever or chills, patient was also found to have a positive stool Hemoccult seen by GI a further workup including EGD and colonoscopy will be performed once patient clinically stable, which is scheduled for tomorrow, patient is seen by corporate bond trader and will have scheduled dialysis on Sunday, patient stats feels better, getting prep of GI procedure tomorrow. Review of Systems Review of Systems: All systems reviewed & are unremarkable except as noted in HPI and below Exam Const: General: comfortable and no acute distress HENMT: General nose exam: Normal nares present Mouth: Yes moist mucous membranes Eyes: General: appearance normal, both eyes and all related structures Sclera: sclerae normal Neck: Neck: supple Resp: Effort & Inspection: normal respiratory effort Auscultation: clear to auscultation bilaterally Cardio: Rate: regular rate Rhythm: regular rhythm GI: Auscultation: normal bowel
[2019-12-21 17:40] LABS: Glucose Point of Care 187 (65-105)
--- NOTE | 2019-12-21 20:29 | PC.NURSE ---
dr. rosado informed patient refuses lantus insulin this pm due to npo status and testing in am.
[2019-12-21 20:33] LABS: Glucose Point of Care 153 (65-105)
[2019-12-22] VITALS (25 sets, daily range): BP systolic 125–165; BP diastolic 56–85; PULSE 76–92; RESP 15–28; TEMP 36.4–37.2; O2SAT 96–100
[2019-12-22 06:40] LABS: Glucose Point of Care 135 (65-105)
--- NOTE | 2019-12-22 07:05 | PM.PNNEP ---
Progress Note: A&P Assessment and Plan (1) End stage renal disease: Code(s): N18.6 - End stage renal disease Status: Chronic Assessment and Plan: HD do today after scopes. Still has slight amount of swelling. Will remove fluid in dialysis as tolerated by blood pressure. Labs pending. (2) Hyperkalemia: Code(s): E87.5 - Hyperkalemia Status: Acute Assessment and Plan: corrected with dialytic intervention due to dietary indiscretion prior to admission (potatoes) Possibly some contribution from the blood in her gut. Today's pending (3) Anemia: Qualifiers: Anemia type: other cause Other causes of anemia: other cause, not classified Qualified Code(s): D64.89 - Other specified anemias Code(s): D64.9 - Anemia, unspecified Status: Acute Assessment and Plan: Hb was 9.5 on admission then dropped to 6.7. Lately it has been in the mid 8. guaiac positive stools s/p PRBC transfusion GI following - EGD and colonoscopy tomorrow (4) Hypotension: Qualifiers: Hypotension type: unspecified hypotension type Qualified Code(s): I95.9 - Hypotension, unspecified Code(s): I95.9 - Hypotension, unspecified Status: Acute Assessment and Plan: thought to be secondary to volume depletion (from diarrhea + anemia) s/p resuscitation with IVF, albumin, hespan, and PRBC transfusion -- BP doing better follow trend of hemodynamics (5) Diarrhea: Qualifiers: Diarrhea type: unspecified type Qualified Code(s): R19.7 - Diarrhea, unspecified Code(s): R19.7 - Diarrhea, unspecified Status: Acute Assessment and Plan: improving at this time Additional Plan Subjective Date/time seen: 12/22/19 07:05 Interval history: Patient is alert. She is ready for colonoscopy/EGD which will happen in a few minutes. She is due for dialysis today. No chest pain or shortness of Breath Review of Systems Cardiovascular: Cardiovascular: Reports no additional cardiovascular complaints Respiratory: Respiratory: Reports no additional respiratory complaints Gastrointestinal: Gastrointestinal: Reports no additional gastrointestinal complaints Genitourinary: Genitourinary: Reports no additional female genitourinary complaints Exam Narrative: Exam Narrative: General: WD/WN female in NAD Heart: normal S1 and S2; no rub Lungs: clear to auscultation Abdomen: soft, nontender, nondistended, positive bowel sounds Extremities: no cyanosis or clubbing; trace edema. Right Foot is bandaged. Skin: No rash Objective Data Vital Signs Vital Signs: Vital Signs - 24 hr 12/21/19 08:00 12/21/19 10:00 12/21/19 14:00 Temperature 36.4 C L 37.2 C Pulse Rate 81 78 75 Respiratory Rate 16 20 Blood Pressure 148/66 H 155/56 H Pulse Oximetry 98 100 12/21/19 16:00 12/22/19 06:46 Temperature 36.2 C L 37.2 C Pulse Rate 86 82 Respiratory Rate 20 20 Blood Pressure 169/81 H 151/67 H Pulse Oximetry 100 96 Intake/Output Intake/Output: Intake & Output 12/19/19 12/20/19 12/21/19 12/22/19 23:59 23:59 23:59 23:59 Intake Total 996 1180 4310 Output Total 250 500 Balance 652 689 7409 Meds/Results Medications: Active Medications Generic Name Dose Route Start Last Admin Trade Name Freq PRN Reason Stop Dose Admin Acetaminophen 650 mg 12/19/19 03:29 12/21/19 08:42 Tylenol Tablet PO 650 mg Q4H PRN Administration Mild Pain (1-3) or Fever Albuterol 2 puff 12/19/19 05:45 Proventil Hfa INHALATION QIDRT PRN shortness of breath or wheezing Cyanocobalamin 500 mcg 12/19/19 09:00 12/21/19 08:35 Vitamin B-12 Tab PO 500 mcg DAILY THERESE Administration Dextrose 12.5 gm 12/19/19 11:02 Dextrose 50% Syringe IV PUSH PRN PRN Hypoglycemia Protocol Epoetin Sno 10,000 units 12/22/19 19:00 Epogen IV PUSH 12/22/19 19:01 ONCE ONE Glucagon
--- NOTE | 2019-12-22 07:29 | PC.NURSE ---
To GI Lab per mario, IV saline locked.
[2019-12-22 07:46] LABS: Glucose Point of Care 135 (65-105)
[2019-12-22] MEDS: LACTATED RINGERS 1,000 ML 150 ML IV CONT (07:46)
--- NOTE | 2019-12-22 07:56 | WPDANESEPPF ---
Anes - Initial Pre Proc Eval Procedure: Operation Date: 12/22/19 08:30 Proposed Procedures p Esophagogastroduodenoscopy & Colonoscopy - Robles Starr MD Date/Time: 12/22/19 07:56 Surgeon: Ellie Karimi DO Pre Op Diagnosis: Fall, increasing weakness Patient Data Age: 74 Gender: F Height: 4 ft 8 in Weight: 69.5 kg Last Vital Signs Temp 37.0 C 12/22/19 07:50 Pulse 76 12/22/19 07:50 Resp 16 12/22/19 07:50 BP 156/85 H 12/22/19 07:50 Pulse Ox 97 12/22/19 07:50 Allergies Allergy/AdvReac Type Severity Reaction Status Date / Time cefazolin Allergy Mild nausea/dizz Verified 12/17/19 13:58 iness enalapril Allergy Unknown cough Verified 12/17/19 13:58 pioglitazone Allergy Unknown Unknown Verified 12/17/19 13:58 tramadol Allergy Unknown hallucinati Verified 12/17/19 13:58 ons gabapentin Allergy Hallucinati Verified 12/17/19 13:58 ng Home Medications Medication Instructions Recorded Confirmed Type Januvia 100 mg PO DAILY 06/12/19 12/19/19 History aspirin 81 mg PO DAILY 06/12/19 12/19/19 History cyanocobalamin (vitamin B-12) 500 mcg PO DAILY 06/12/19 12/19/19 History B complex with C 20-folic acid 1 cap PO DAILY 08/15/19 12/19/19 History [Triphrocaps] albuterol sulfate 2 puff INHALATION QID PRN #6.7 gm 08/18/19 12/19/19 Rx insulin degludec [Tresiba 10 unit SUBCUT HS 12/17/19 12/19/19 History FlexTouch U-100] ergocalciferol (vitamin D2) 50,000 unit PO WEEKLY 12/19/19 12/19/19 History [Vitamin D2] pantoprazole 40 mg PO DAILY 12/19/19 12/19/19 History sucralfate 1 g PO TIDWM 12/19/19 12/19/19 History Laboratory Tests 12/21/19 12/21/19 12/21/19 07:08 08:18 11:42 POC Capillary Glucose 126 mg/dl H mg/dl 155 mg/dl H mg/dl (65-105) (65-105) Ova & Parasites Pending 12/21/19 12/21/19 12/22/19 16:48 20:19 06:37 POC Capillary Glucose 187 mg/dl H mg/dl 153 mg/dl H mg/dl 135 mg/dl H mg/dl (65-105) (65-105) (65-105) Ova & Parasites 12/22/19 07:41 POC Capillary Glucose 135 mg/dl H mg/dl (65-105) Ova & Parasites Patient hx anesthesia problems: none Family hx anesthesia problems: none PMFSH Past Medical History Medical History Amputated toe of left foot Anemia of chronic disease Megaloblastic anemia AV fistula Left upper extremity Closed fracture of lateral portion of right tibial plateau (~2014) End stage renal disease on dialysis Dialysis days are Sunday, Sunday, and Sunday. She is on the transplant list at [place]. Hiatal hernia Hyperlipidemia Hypertension Osteoarthritis of both knees Osteoporosis PAD (peripheral artery disease) With history of midfoot amputation Paroxysmal atrial fibrillation Pulmonary hypertension Echocardiogram August 2019: EF 65-70 %, indeterminate left ventricular diastolic function, mild biatrial enlargement, mild mitral valve regurgitation, moderate tricuspid regurgitation, mild pulmonary hypertension with RVSP of 39 Spinal stenosis at L4-L5 level High-grade central canal stenosis noted on MRI February 2017 Staphylococcal septicemia (~2013) Thoracic ascending aortic aneurysm 4.[address] scan from August 2019 Type 2 diabetes mellitus Hemoglobin A1c was 6.6 in July 2019. Surgical History Surgical History Amputation at midfoot 5th digit right foot History of arthroplasty of right ankle History of arthroscopy (~12/07/12) wrist History of bilateral cataract extraction History of colonoscopy (~12/02/15) History of knee replacement (~2015) right Presence of Watchman left atrial appendage closure device Family History Family History Father Hypertension Heart disease Mother Diabetes mellitus Hypertension Tobacco dependence Lung cancer Sibling Heart disease Social His
[2019-12-22] MEDS: BENZOCAINE (*SP) 60 ML SPRAY CAN (HURRICAINE) 1 SPRAY MUCOUS MEM (08:38)
[2019-12-22] MEDS: SODIUM CHLORIDE 0.9% IV 500 ML 10 ML IV CONT (09:03)
[2019-12-22 09:17] LABS: Glucose Point of Care 124 (65-105)
--- NOTE | 2019-12-22 09:38 | PC.NURSE ---
Return from GI lab per mario.
[2019-12-22] MEDS: VITAMIN B CMPLX/VIT C/FOLIC AC 1 CAPSULE 1 CAP PO (09:44)
[2019-12-22] MEDS: CYANOCOBALAMIN 500 MCG TABLET PO (09:44)
[2019-12-22] MEDS: SUCRALFATE 1 GM TABLET PO ×2 (09:44→15:33)
--- NOTE | 2019-12-22 10:15 | PC.NURSE ---
Patient to dialysis per bed.
[2019-12-22] MEDS: EPOETIN ALFA 10,000 UNITS/ML VIAL 10000 UNITS IV PUSH (13:27)
[2019-12-22] MEDS: PANTOPRAZOLE 40 MG TABLET PO (15:33)
--- NOTE | 2019-12-22 15:49 | PM.EVENT ---
Event Note Event Note Event Note: pt on HD sara it well. seen at 1pm
[2019-12-22 15:50] LABS: Glucose Point of Care 114 (65-105)
--- NOTE | 2019-12-22 15:53 | PM.DS ---
DS: Admitting Diagnosis Admitting Diagnosis Admitting Diagnosis: Hyperkalemia DS: Discharge Diagnosis Discharge Diagnosis (1) Acute hyperkalemia: Code(s): E87.5 - Hyperkalemia Status: Acute Assessment and Plan: Likely due to ingestion of high potassium foods i.e. potatoes. As I was leaving the patient's room the dialysis nurse had arrived to start dialysis. At the time of this dictation the patient had to be taken off dialysis early due to hypotension. Patient did not have any fluid removed during dialysis and only had her blood filtered. I have ordered 50 gram of albumin x1 Nephrology has been consulted for dialysis management. Patient has been placed in the ICU for close monitoring in the architectural model maker was consulted from the ER. The patient's wide complex bradycardia has resolved with treatment of her hyperkalemia. 12/21/19 13:31 Patient is 74-year-old female with history of diabetes hypertension end-stage renal disease on hemodialysis patient had been having diarrhea for over a month on and off and to help her diarrhea patient had been eating rice and potato chips patient presented emergency department with a complaint of type the difficulty with ambulation and continue to have diarrhea, patient was found to potassium of 9, patient did have dialysis as an outpatient was not able to tolerate and dialysis was not completely, currently patient states feeling little better and diarrhea have improved, the patient in ICU due to elevated potassium, today patient potassium is 5, patient denies any chest pain palpitation or shortness of breath, patient denies any fever or chills, patient was also found to have a positive stool Hemoccult seen by GI a further workup including EGD and colonoscopy will be performed once patient clinically stable, which is scheduled for tomorrow, patient is seen by ux interaction designer and will have scheduled dialysis on Sunday, patient stats feels better, getting prep of GI procedure tomorrow. (2) End stage renal disease on dialysis: Code(s): N18.6 - End stage renal disease; Z99.2 - Dependence on renal dialysis Status: Chronic Assessment and Plan: The patient is being taken off of dialysis at the time of my dictation due to hypotension. Nephrology has been consulted. Repeat BMP and CBC have been ordered DS: Summary Hospital Course Reason for hospitalization: Shasta Obando is a 74 year old female with a past medical history of diabetes end-stage renal disease on hemodialysis who presented to the ER via EMS due to a fall. The patient reports 1-2 week of diarrhea with increasing weakness. The patient reports that she has been having for the last week. Her diarrhea has been watery and black in color. She had presented to the ER on the 11 of December due to her stool coming back positive for occult blood. However, her hemoglobin at that time was stable and her diarrhea had stopped. And she otherwise felt well so she was discharged home. She reported that the diarrhea started again a few days later. She did start taking Imodium a day or so ago and heard diarrheal episodes have decreased from 3 times a day down to once a day. Her stools are also more formed and mushy instead of watery. She reports that she is supposed to have a scope performed by a doctor at this facility on Sunday but she does not know which doctor. She reports that she has been eating rice and potatoes in order to get her stool more formed. She reported that she had not had a problem with having high potassium in quite some time so she thought she was safe eating the potatoes. She denies any abdominal pain. She has not missed any dialysis appointments. She reports that on the morning of the she became more profoundly fatigued. She had transfer herself from her wheelchair to the toilet but when she tried to transfer herself back to the toilet she fell. She denies having hit her head. She was too weak to get back up.
== END 2019-12-22 18:06 | disposition home or self-care (01) | DRG 640 ==
LOC: ANHED 23:16 → ANHICU 12-19 03:09 → ANH2MED 12-22 14:57 → ANHICU 12-24 15:00 → ANHIMU 12-24 15:00
PROVIDERS: Internal Medicine; Internal Medicine Gastroenterology; Admitting Provider Internal Medicine; Emergency Provider Emergency Medicine; PCP Family Medicine; Visit Provider Family Medicine
PROC: 0DJ08ZZ Inspection of Upper Intestinal Tract, Via Natural or Artificial Opening Endoscopic (ICD-10-PCS; CPT 43235; principal; 2019-12-22 08:30)
DX: E87.5 Hyperkalemia (principal); N18.6 End stage renal disease; I12.0 Hypertensive chronic kidney disease with stage 5 chronic kidney disease or end stage renal disease; K92.2 Gastrointestinal hemorrhage, unspecified; D62 Acute posthemorrhagic anemia; E11.22 Type 2 diabetes mellitus with diabetic chronic kidney disease; E11.51 Type 2 diabetes mellitus with diabetic peripheral angiopathy without gangrene; I73.9 Peripheral vascular disease, unspecified; E78.5 Hyperlipidemia, unspecified; I48.0 Paroxysmal atrial fibrillation; I27.20 Pulmonary hypertension, unspecified; M48.061 Spinal stenosis, lumbar region without neurogenic claudication; I71.2 Thoracic aortic aneurysm, without rupture; M81.0 Age-related osteoporosis without current pathological fracture; M17.0 Bilateral primary osteoarthritis of knee; K44.9 Diaphragmatic hernia without obstruction or gangrene; D63.1 Anemia in chronic kidney disease; R19.7 Diarrhea, unspecified; I95.9 Hypotension, unspecified; K29.60 Other gastritis without bleeding; K57.30 Diverticulosis of large intestine without perforation or abscess without bleeding; K64.8 Other hemorrhoids; E86.0 Dehydration; E66.9 Obesity, unspecified; Z68.34 Body mass index [BMI] 34.0-34.9, adult; Z96.651 Presence of right artificial knee joint; Z96.661 Presence of right artificial ankle joint; Z99.2 Dependence on renal dialysis; Z98.42 Cataract extraction status, left eye; Z98.41 Cataract extraction status, right eye; Z89.411 Acquired absence of right great toe; Z99.81 Dependence on supplemental oxygen; Z79.82 Long term (current) use of aspirin
CPT/HCPCS: 36415; 36430; 71045; 80048; 80053; 83605; 83735; 84100; 85014; 85018; 85025; 85610; 85730; 86850; 86900; 86901; 86923; 87015; 87045; 87046; 87081; 87177; 87209; 87269; 87272; 87324; 87427; 93005; 94640; 96374; 96375; 99285; A9270; C9113; G0257; J0610; J1815; J2001; J2704; J7030; J7040; J7060; J7120; P9016; P9047; Q4081

== ENCOUNTER 2020-02-20 15:08 | Outpatient (CLI) | payer MEDICARE, MEDICAID, SELFPAY ==
[2020-02-20 15:53] LABS: Hematocrit 15.7 % (37.0-47.0); Hemoglobin 4.7 g/dL (12.0-15.0)
== END 2020-02-20 15:09 | disposition home or self-care (01) ==
PROVIDERS: PCP Family Medicine; Visit Provider Internal Medicine Nephrology
DX: D64.9 Anemia, unspecified (principal)
CPT/HCPCS: 36415; 85014; 85018

== ENCOUNTER 2020-02-20 16:22 | Inpatient (IN) | payer MEDICARE, MEDICAID, SELFPAY ==
[2020-02-20] VITALS (10 sets, daily range): BP systolic 106–129; BP diastolic 37–53; PULSE 75–88; RESP 16–23; TEMP 36.1–37.3; O2SAT 96–100; BMI 24.9
--- NOTE | ~2020-02-20 | CT_ITS ---
EXAMINATION: CT abdomen pelvis w con EXAM DATE: 02/20/2020 17:36 INDICATION: Left flank pain and severe anemia. Hand injection. Patient on dialysis. TECHNIQUE: Spiral CT of the abdomen and pelvis was performed following intravenous injection of 100 m L Omnipaque 350. Axial, coronal and sagittal images were reviewed. The dose-length product (DLP) fo r this examination was 311.66 mGy-cm. The exposure was tailored according to patient size (auto mA e xposure control), and iterative reconstruction (ASIR) was used as additional dose reduction technique . There is no prior study for comparison. FINDINGS: The liver, spleen, adrenal glands and pancreas are unremarkable. There is a fold in the ga llbladder. No calcified cholelithiasis or adjacent inflammation. Severely atrophic kidneys bilateral ly without hydronephrosis. There are small renal cysts and there are 2 right calyceal stones, largest measuring 4 mm. The uterus is unremarkable. The bladder is collapsed at time of imaging limiting evaluation. There is no retroperitoneal or pelvic lymphadenopathy. There is extensive scattered ar terial sclerotic disease. The appendix is normal. The stomach and small bowel are unremarkable. There is moderate amount of c olonic stool. There is mild scattered colonic diverticulosis. There is no adjacent inflammatory pascual ge to suggest diverticulitis. No free intraperitoneal gas. There is cardiomegaly. Small left pleur al effusion with adjacent subsegmental atelectasis. There are no osteoblastic or osteolytic lesions identified. IMPRESSION: 1. No acute intra-abdominal findings. 2. Cardiomegaly, small left pleural effusion. 3. Chronic findings. Reviewed, dictated and finalized at location A.
--- NOTE | 2020-02-20 16:45 | ECG_ITS ---
Measurements Intervals [place] Rate: 82 P: ID: 0 QRS: 78 QRSD: 80 T: 89 QT: 398 QTc: 468 Interpretive Statements ATRIAL FIBRILLATION CANNOT RULE OUT SEPTAL INFARCT, AGE INDETERMINATE BORDERLINE T WAVE ABNORMALITY- DIFFUSE LEADS BASELINE WANDER- I, II, AVR, AVL, AVF, V1-V6 ABNORMAL ECG Electronically Signed On 02-20-2020 17:08:03 CDT by Danny Soliz D.O.
--- NOTE | 2020-02-20 17:01 | ED.RECABL ---
HPI - Recheck/Abnormal Lab/Rx General Chief Complaint: Recheck/Abnormal Lab/Rx Stated Complaint: low hgb Time Seen by Provider: 02/20/20 16:44 Source: patient and other (Gisell is her caregiver.) Mode of arrival: EMS Limitations: no limitations History of Present Illness HPI narrative: Patient arrives via EMS from dialysis with her caregiver Gisell for anemia. She said at last check her hemoglobin was 10 and today it was 4. She recently had a week long admission at [facility] for anemia and blood transfusion. Then 3 weeks later she had a similar admission here for blood transfusion. Dr. Starr did her upper endoscopy and lower endoscopy. She had been previously diagnosed with bleeding ulcers in her stomach but those had resolved. Today she had pain in her left flank in the kidney area. She gives the pain a 3 out of 10 currently, but it was much worse during dialysis. she takes iron every day so she said her stools are black but she has not seen blood. She does not smoke cigarettes, drink alcohol, or do drugs. She gets her dialysis on Wednesdays and Fridays. MD complaint: abnormal lab Initial visit (ago): hour(s) Symptoms since prior visit: no new symptoms Context: planned re-check Associated symptoms: other (Left flank pain) Treatments prior to arrival: other (Dialysis) Related Data Home Medications Medication Instructions Recorded Confirmed aspirin 81 mg PO DAILY 06/12/19 12/19/19 cyanocobalamin (vitamin B-12) 500 mcg PO DAILY 06/12/19 12/19/19 Triphrocaps 1 cap PO DAILY 08/15/19 12/19/19 ergocalciferol (vitamin D2) 50,000 unit PO WEEKLY 12/19/19 12/19/19 [Vitamin D2] pantoprazole 40 mg PO DAILY 12/19/19 12/19/19 sucralfate 1 g PO TIDWM 12/19/19 12/19/19 Allergies Allergy/AdvReac Type Severity Reaction Status Date / Time cefazolin Allergy Mild nausea/dizz Verified 12/26/19 12:23 iness enalapril Allergy Unknown cough Verified 12/26/19 12:23 pioglitazone Allergy Unknown Unknown Verified 12/26/19 12:23 tramadol Allergy Unknown hallucinati Verified 12/26/19 12:23 ons gabapentin Allergy Hallucinati Verified 12/26/19 12:23 ng Review of Systems Review of Systems: Narrative: CONSTITUTIONAL: Denies fever, chills, or sweats. EYES: Denies visual changes, redness, or discharge. ENT: Denies rhinorrhea, congestion, sore throat, or otalgia. CARDIOVASCULAR: Denies chest pain, palpitations, or edema. RESPIRATORY: Denies cough or dyspnea. GASTROINTESTINAL: She has left flank pain /abdominal pain, nausea, vomiting, or diarrhea. GENITOURINARY: Denies dysuria or hematuria. SKIN: Denies rash or itching. MUSCULOSKELETAL: Denies back pain, joint pain, or myalgia. NEUROLOGIC: Denies headache, numbness, or weakness. . All systems reviewed & are unremarkable except as noted in HPI and below PMFSH Past Medical History Medical History Amputated toe of left foot Anemia of chronic disease Megaloblastic anemia AV fistula Left upper extremity Closed fracture of lateral portion of right tibial plateau (~2014) End stage renal disease on dialysis Dialysis days are Sunday, Sunday, and Sunday. She is on the transplant list at [facility]. Hiatal hernia Hyperlipidemia Hypertension Osteoarthritis of both knees Osteoporosis PAD (peripheral artery disease) With history of midfoot amputation Paroxysmal atrial fibrillation Pulmonary hypertension Echocardiogram August 2019: EF 65-70 %, indeterminate left ventricular diastolic function, mild biatrial enlargement, mild mitral valve regurgitation, moderate tricuspid regurgitation, mild pulmonary hypertension with RVSP of 39 Spinal stenosis at L4-L5 level High-grade central canal stenosis noted on MRI February 2017 Staphylococcal septicemia (~2013) Thoracic ascending aortic aneurysm 4.[address] scan from August 2019 Type 2 diabetes mellitus Hemoglobin A1c was 6.6 in July 2019. Surgical History Surgical History (Re
--- NOTE | 2020-02-20 17:38 | PC.NURSE ---
pt in ct, will obtain labs upon her return.
--- NOTE | 2020-02-20 17:49 | PC.NURSE ---
PT BACK FROM CT, JAE HALEY AT BEDSIDE FOR GUAIAC STOOL, TECH ALVIN SENDING BLOOD AT THIS TIME.
[2020-02-20 17:58] LABS: Basophils Percent Auto 0.3 % (0.2-1.2); Eosinophils Absolute Auto 0.1 K/mm3 (0-0.3); Eosinophils Percent Auto 1.1 % (0-4.4); Immature Granulocyte Absolute 0.03 K/mm3 (0.00-0.031); Immature Granulocyte Percent A 0.5 % (0-0.5); Lymphocytes Absolute Auto 1.47 K/mm3 (0.9-3.2); Lymphocytes Percent Auto 22.2 % (18.3-44.2); Mean Corpuscular HGB Conc 29.1 g/dl (32-36); Mean Corpuscular Hemoglobin 31.9 pg (26-34); Mean Corpuscular Volume 109.4 fl (80-100); Mean Platelet Volume 11.5 fl (7.4-10.4); Monocytes Absolute Auto 0.8 K/mm3 (0.1-0.6); Monocytes Percent Auto 11.3 % (2.6-8.5); Neutrophils Absolute Auto 4.3 K/mm3 (1.3-6.7); Neutrophils Percent Auto 64.6 % (45.5-73.1); Nucleated Red Blood Cells Perc 0.3 % (0.0-0.2); Platelet Count Result 155 k/mm3 (150-375); Red Blood Count 1.38 M/mm3 (4.2-5.4); Red Cell Distribution Width 21.9 % (11.5-14.5); White Blood Count 6.6 K/mm3 (4.5-10.0)
[2020-02-20 18:07] LABS: INR 1.2
[2020-02-20 18:09] LABS: Alanine Aminotransferase 15 U/L (4-35); Albumin Level 2.9 g/dL (3.5-5.1); Alkaline Phosphatase 172 U/L (38-126); Anion Gap 8 mmol/L (8-16); Aspartate Amino Transferase 23 U/L (14-36); Bilirubin,Total 0.2 mg/dL (0.2-1.3); Blood Urea Nitrogen 39 mg/dL (7-17); Calcium 7.5 mg/dL (8.4-10.2); Carbon Dioxide 31 mmol/L (22-30); Chloride 93 mmol/L (98-107); Estimated Glomerular Filt Rate 19; Glucose 169 mg/dL (65-105); Potassium 3.2 mmol/L (3.4-5.0); Sodium 132 mmol/L (137-145)
[2020-02-20 18:15] LABS: Hematocrit 15.1 % (37.0-47.0); Hemoglobin 4.4 g/dL (12.0-15.0)
[2020-02-20 18:16] LABS: Hypochromasia 2+ (NORMAL); Platelet Estimate Adequate (Adequate)
[2020-02-20 18:17] LABS: Anisocytosis 3+ (NORMAL)
--- NOTE | 2020-02-20 19:27 | PM.IMHP ---
H&P: HPI History of Present Illness Date/Time: 02/20/20 19:27 Chief complaint: anemia, GI bleed, ESRD on dialysis Narrative: This is a pleasant 74 year old Diabetic female with ESRD on HD on // for the past 6 years who presented to the hospital today from dialysis after being found to have a hemoglobin of 4. The patient last had her blood counts checked last Sunday. She reports having intermittent mild epigastric pain over the past week. She has had dark stools but attributed this to the iron tablets she is on. Her history is significant for a hospitalization at the end of November this year when she was diagnosed with a gastric ulcer and given a transfusion. Her last endoscopy was in December of this year by Dr. Starr when she had both an EGD and a colonoscopy. She is known to be on a baby aspirin which she last took this morning but denies any blood thinners. Tonight she also reports increased fatigue but denies any chest pain, fevers, chills, shortness of breath, cough, dizziness, passing out, dysuria, hematuria, bright red rectal bleeding or worsening LE swelling. She also reports that earlier today she had severe left flank pain while she has getting dialysis although this has resolved. CT abd/pelvis obtained in the ER was unremarkable. She reports a couple of episodes of vomiting earlier in the week but denies any bloody emesis and has not vomited today. The patient was evaluated in the ER today and found to have an H/H of 4.4 and 15.1. We have been asked to admit the patient to the hospital for further care. GI, Dr. Starr has been consulted by ER provider. Rectal exam was performed in the ER by ER provider and was guiaic positive. Review of Systems Review of Systems: All systems reviewed & are unremarkable except as noted in HPI and below PMFSH Past Medical History Medical History Amputated toe of left foot Anemia of chronic disease Megaloblastic anemia AV fistula Left upper extremity Closed fracture of lateral portion of right tibial plateau (~2014) End stage renal disease on dialysis Dialysis days are Sunday, Sunday, and Sunday. She is on the transplant list at [facility]. Hiatal hernia Hyperlipidemia Hypertension Osteoarthritis of both knees Osteoporosis PAD (peripheral artery disease) With history of midfoot amputation Paroxysmal atrial fibrillation Pulmonary hypertension Echocardiogram August 2019: EF 65-70 %, indeterminate left ventricular diastolic function, mild biatrial enlargement, mild mitral valve regurgitation, moderate tricuspid regurgitation, mild pulmonary hypertension with RVSP of 39 Spinal stenosis at L4-L5 level High-grade central canal stenosis noted on MRI February 2017 Staphylococcal septicemia (~2013) Thoracic ascending aortic aneurysm 4.[address] scan from August 2019 Type 2 diabetes mellitus Hemoglobin A1c was 6.6 in July 2019. Surgical History Surgical History Amputation at midfoot 5th digit right foot History of arthroplasty of right ankle History of arthroscopy (~12/07/12) wrist History of bilateral cataract extraction History of colonoscopy (~12/02/15) History of knee replacement (~2015) right Presence of Watchman left atrial appendage closure device Family History Family History Father Hypertension Heart disease Mother Diabetes mellitus Hypertension Tobacco dependence Lung cancer Sibling Heart disease Social History Social History Social History: The patient is and lives in [place]. She is originally from [place]. 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 She has 2 daughters who live in [place]. She has 1 son who lives in [facility] but is currently visiting her. She designates her daughters as her surr
--- NOTE | 2020-02-20 20:21 | PC.NURSE ---
This patient, Shasta Obando, was admitted to IMU Room 211-01. Patient/family oriented to hospital policies and general routines including ID bracelet, bed and alarms, visiting hours, pain management, procedures, bathroom and other care routines, personal items, smoking policy, room service/diet, and visiting hours. Valuables list has been completed. Information on how to activate the Rapid Response Team has been discussed. Patient/Family are encouraged to report perceived risks to care and to ask questions if they do not understand what they are told or what they should do.
[2020-02-20 21:21] LABS: Hematocrit 15.3 % (37.0-47.0); Hemoglobin 4.5 g/dL (12.0-15.0)
[2020-02-20] MEDS: ACETAMINOPHEN 325 MG TABLET 650 MG PO (22:23)
[2020-02-21] VITALS (35 sets, daily range): BP systolic 118–157; BP diastolic 46–96; PULSE 60–91; RESP 14–20; TEMP 36–37.1; O2SAT 95–100
[2020-02-21 00:37] LABS: Glucose Point of Care 161 (65-105)
[2020-02-21] MEDS: ACETAMINOPHEN 325 MG TABLET 650 MG PO ×2 (02:01→15:04)
[2020-02-21 06:22] LABS: Glucose Point of Care 201 (65-105)
[2020-02-21] MEDS: INSULIN ASPART (*BKC) 100 UNITS/ML SUB-Q ×2 (06:24→20:44)
[2020-02-21 07:19] LABS: Basophils Percent Auto 0.4 % (0.2-1.2); Eosinophils Absolute Auto 0.1 K/mm3 (0-0.3); Hematocrit 25.1 % (37.0-47.0); Hemoglobin 7.8 g/dL (12.0-15.0); Immature Granulocyte Absolute 0.05 K/mm3 (0.00-0.031); Immature Granulocyte Percent A 0.5 % (0-0.5); Lymphocytes Absolute Auto 1.44 K/mm3 (0.9-3.2); Lymphocytes Percent Auto 15.7 % (18.3-44.2); Mean Corpuscular HGB Conc 31.1 g/dl (32-36); Mean Corpuscular Hemoglobin 31.1 pg (26-34); Mean Platelet Volume 12.3 fl (7.4-10.4); Monocytes Absolute Auto 0.9 K/mm3 (0.1-0.6); Monocytes Percent Auto 9.3 % (2.6-8.5); Neutrophils Absolute Auto 6.7 K/mm3 (1.3-6.7); Neutrophils Percent Auto 73.1 % (45.5-73.1); Nucleated Red Blood Cells Perc 0.2 % (0.0-0.2); Platelet Count Result 180 k/mm3 (150-375); Red Blood Count 2.51 M/mm3 (4.2-5.4); White Blood Count 9.2 K/mm3 (4.5-10.0)
[2020-02-21 07:29] LABS: Anion Gap 9 mmol/L (8-16); Blood Urea Nitrogen 48 mg/dL (7-17); Calcium 7.5 mg/dL (8.4-10.2); Carbon Dioxide 31 mmol/L (22-30); Chloride 93 mmol/L (98-107); Estimated Glomerular Filt Rate 13; Glucose 185 mg/dL (65-105); Potassium 3.5 mmol/L (3.4-5.0); Sodium 133 mmol/L (137-145)
--- NOTE | 2020-02-21 11:20 | PM.CNNEP ---
Assessment and Plan Assessment and plan (1) Upper GI bleed: Code(s): K92.2 - Gastrointestinal hemorrhage, unspecified Status: Acute Assessment and Plan: Jareth sounds like she has a GI bleed. Her hemoglobin rachid from 4-7.8 with 2units of blood. She is actively bleeding so I think we need to give her 1 more unit for some buffer. We will do dialysis today to get the fluid off for that unit. GI has been consulted. We discussed that her oral iron is not necessary. We can give it to her IV. It can confuse the picture because it makes the stools black. (2) Hypokalemia: Code(s): E87.6 - Hypokalemia Status: Acute Assessment and Plan: Potassium was low but this is probably because she had just had dialysis. It is better today. (3) Atrial fibrillation: Qualifiers: Atrial fibrillation type: unspecified Qualified Code(s): I48.91 - Unspecified atrial fibrillation Code(s): I48.91 - Unspecified atrial fibrillation Status: Chronic Assessment and Plan: She has a watchman device, thank Goodness she does not need anticoagulation. (4) ESRD (end stage renal disease) on dialysis: Code(s): N18.6 - End stage renal disease; Z99.2 - Dependence on renal dialysis Status: Chronic Assessment and Plan: Will get dialysis today and then Sunday. History of Present Illness Reason for Consult Consult date: 02/21/20 Chief Complaint Chief complaint: anemia, GI bleed, ESRD on dialysis History of Present Illness Narrative: Shasta is a very pleasant 74-year-old lady who has multiple medical problems including end-stage renal disease on dialysis 3 times a week, anemia, renal osteodystrophy, diabetes, hypertension, coronary disease, atrial fibrillation with a Watchman device and, sore on her right toe. 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 The patient has been getting dialysis 3 times a week and with that she gets CBCs drawn every couple of weeks. Last week the hemoglobin was 9. Last Sunday it was 6. They called me about that yesterday. The patient in the meantime was developing left flank pain. Because the hemoglobin had dropped so much this implied some sort of bleeding whether retroperitoneal or GI. So the patient was sent yesterday for stat CBC here at [facility]. The hemoglobin came back for so we called her and had her come to the emergency room. In the ER she was evaluated. She felt pretty good except that she still had that left flank pain. Her blood pressure was a little bit soft at around 100. They repeated her hemoglobin once again it was low. Because of the flank pain she had a CT of the abdomen which did not show a bleed. She tells me that she is on oral iron. Because of this her stools are black. She does say that she has seen some blood in her stools as well but did not say anything because she thought it was from the iron as well. Patient denies abdominal pain or nausea. No ENT or neurologic issues. Social history she does not smoke or drink. Review of Systems Constitutional: Constitutional: Reports no additional constitutional complaints Eyes: Eyes: Reports no additional eye complaints ENT: Reports system reviewed and no additional complaints, except as documented Cardiovascular: Cardiovascular: Reports no additional cardiovascular complaints Respiratory: Respiratory: Reports no additional respiratory complaints Gastrointestinal: Gastrointestinal: Reports no additional gastrointestinal complaints Genitourinary: Genitourinary: Reports no additional female genitourinary complaints Musculoskeletal: Musculoskeletal: Reports no additional musculoskeletal complaints Integumentary/Breasts: Skin/Breast: Reports system reviewed and no additional complaints, except as docu Neurologic: Reports system reviewed and no additional complaints, except as documented Psychiatric: Psychiatric: Reports no a
[2020-02-21 12:30] LABS: Glucose Point of Care 153 (65-105)
--- NOTE | 2020-02-21 12:34 | WPDGICN ---
Assessment and Plan Assessment and plan (1) Occult blood in stools: Code(s): R19.5 - Other fecal abnormalities Status: Acute Assessment and Plan: recent colonoscopy unremarkable, EGD 2 months [address] healed ulcer CT scan did not show retroperitoneal bleed, she is hemodynamically stable. continue with ppi, probably may need another EGD again (had occult blood in stools) +/- capsule endoscopy but she also has chronic anemia from renal disease, etc monitor for signs of bleeding, h/h and transfuse to keep above 7 (2) ESRD (end stage renal disease) on dialysis: Code(s): N18.6 - End stage renal disease; Z99.2 - Dependence on renal dialysis Status: Chronic Assessment and Plan: nephrology on board (3) Acute on chronic blood loss anemia: Code(s): D62 - Acute posthemorrhagic anemia Status: Acute Assessment and Plan: monitor hb, received blood transfusion will check also for hemolysis, LDH, etc may need also to see hematology (4) History of gastric ulcer: Code(s): Z87.19 - Personal history of other diseases of the digestive system Status: Acute (5) Atrial fibrillation: Qualifiers: Atrial fibrillation type: unspecified Qualified Code(s): I48.91 - Unspecified atrial fibrillation Code(s): I48.91 - Unspecified atrial fibrillation Status: Chronic Assessment and Plan: she was getting only baby aspirin GI Consult Note Consult date/time: 02/21/20 12:35 Reason for consult: acute on chronic blood loss anemia HPI: Shasta Obando is a 74 year old female who is a patient of Dr Starr and history of ESRD on HD on //. Afib s/p watchman device who came to the hospital yesterday from dialysis after being found to have a hemoglobin of 4. She was found to have gastric ulcer ealier this year but repeat EGD because worsening anemia and FOBOT + was done 12/2019 only found mild gastritis without any residual ulcer, also underwent colonoscopy that showed mild diverticulosis without stigmata of bleeiding. ER found occult blood in stools, admitted to floor and received blood transfusion. She had left flank pain but CT scan a/p without acute findings. She denies nausea or vomiting. she also has been using iron pills and stools have been dark. She is only using baby aspirin. Review of Systems Constitutional: Constitutional: Reports fatigue Eyes: Eyes: Denies blurry vision ENT: Denies nasal congestion Cardiovascular: Cardiovascular: Denies chest pain Respiratory: Respiratory: Denies dyspnea Gastrointestinal: Gastrointestinal: Denies bloating and Denies nausea Genitourinary: Genitourinary: Reports flank pain Musculoskeletal: Musculoskeletal: Denies neck pain Integumentary/Breasts: Skin/Breast: Denies rash Neurologic: Denies numbness Psychiatric: Psychiatric: Denies depression [facility] Past Medical History Medical History Amputated toe of left foot Anemia of chronic disease Megaloblastic anemia AV fistula Left upper extremity Closed fracture of lateral portion of right tibial plateau (~2014) End stage renal disease on dialysis Dialysis days are Sunday, Sunday, and Sunday. She is on the transplant list at [facility]. Hiatal hernia Hyperlipidemia Hypertension Osteoarthritis of both knees Osteoporosis PAD (peripheral artery disease) With history of midfoot amputation Paroxysmal atrial fibrillation Pulmonary hypertension Echocardiogram August 2019: EF 65-70 %, indeterminate left ventricular diastolic function, mild biatrial enlargement, mild mitral valve regurgitation, moderate tricuspid regurgitation, mild pulmonary hypertension with RVSP of 39 Spinal stenosis at L4-L5 level High-grade central canal stenosis noted on MRI February 2017 Staphylococcal septicemia (~2013) Thoracic ascending aortic aneurysm 4.[address] scan from August 2019 Type 2 diabetes mellitus Hemoglobin A1c w
--- NOTE | 2020-02-21 16:08 | PM.IMPN ---
Progress Note: A&P Assessment and Plan (1) Upper GI bleed: Code(s): K92.2 - Gastrointestinal hemorrhage, unspecified Status: Acute Assessment and Plan: change Protonix drip to 40 p.o. q.12. has received total of 3 units of packed cells with no evidence of ongoing blood loss and will check hemoglobin in a.m. history of peptic disease but also most recent evaluation negative and could have multiple angiodysplasias (2) Anemia: Qualifiers: Anemia type: unspecified type Qualified Code(s): D64.9 - Anemia, unspecified Code(s): D64.9 - Anemia, unspecified Status: Acute Assessment and Plan: Appears to be likely acute upper GI bleed. continue PPI and monitor hemoglobin. GI will probably repeat EGD. (3) Hypokalemia: Code(s): E87.6 - Hypokalemia Status: Acute Assessment and Plan: Mild hypokalemia - monitor serum potassum and replace as needed. (4) ESRD (end stage renal disease) on dialysis: Code(s): N18.6 - End stage renal disease; Z99.2 - Dependence on renal dialysis Status: Chronic Assessment and Plan: Nephrology, Dr. Suarez arrange for dialysis today (5) Type 2 diabetes mellitus: Qualifiers: Diabetes mellitus fci insulin use: without exterminator termite use Diabetes mellitus complication status: without complication Qualified Code(s): E11.9 - Type 2 diabetes mellitus without complications Code(s): E11.9 - Type 2 diabetes mellitus without complications Status: Chronic Assessment and Plan: Accuchecks, SSI Coverage, Hypoglycemic protocol. (6) Hypertension: Qualifiers: Hypertension type: unspecified Qualified Code(s): I10 - Essential (primary) hypertension Code(s): I10 - Essential (primary) hypertension Status: Chronic Assessment and Plan: stable. monitor blood pressure. resumed antihypertensives with rising hemoglobin. (7) Atrial fibrillation: Qualifiers: Atrial fibrillation type: unspecified Qualified Code(s): I48.91 - Unspecified atrial fibrillation Code(s): I48.91 - Unspecified atrial fibrillation Status: Chronic Assessment and Plan: s/p watchman procedure. continue beta-deena. Subjective Date/time seen: 02/21/20 16:08 Interval history: date of visit 02/20. 74-year-old type 2 diabetic chronic renal failure on dialysis admitted with severe anemia. She has had and GI blood loss in the past with recent EGD and colonoscope within the last few months revealing no source of bleeding. CT scan was performed to rule out retroperitoneal bleed and has received total now 3 units of packed cells when her hemoglobin initially 4.5. she feels much better. Did have guaiac-positive stool and GI is considering repeat endoscopy and our capsular endoscopy. Exam Narrative: Exam Narrative: blood pressure 140/60 pulse is 80 irregular pupil equal reactive to light sclera anicteric lungs clear CV irregular with systolic murmur abdomen soft nontender extrem no edema distal pulses 1+ neuro alert pleasant cooperative no focal deficits Objective Data Vital Signs Vital Signs: Vital Signs - 24 hr 02/20/20 16:29 02/20/20 16:59 02/20/20 17:48 Temperature 37.3 C Pulse Rate 77 75 88 Respiratory Rate 16 23 H 19 Blood Pressure 106/37 L 112/45 L 119/48 L Pulse Oximetry 100 100 98 02/20/20 19:26 02/20/20 19:48 02/20/20 20:00 Temperature 36.1 C L Pulse Rate 83 77 81 Respiratory Rate 18 18 Blood Pressure 124/53 L 111/50 L Pulse Oximetry 100 97 97 02/20/20 22:00 02/20/20 22:31 02/20/20 22:49 Temperature 36.8 C 36.8 C Pulse Rate 80 80 81 Respiratory Rate 20 16 Blood Pressure 108/38 L 110/38 L Pulse Oximetry 96 98 02/20/20 23:49 02/21/20 00:00 02/21/20 00:49 Temperature 36.8 C 36.4 C Pulse Rate 77 82 84 Respiratory Rate 16 20 Blood Pressure 129/51 L 147/96 H Pulse Oximetry 97 97 100 02/21/20 02:00 02/21/20
[2020-02-21 18:02] LABS: Glucose Point of Care 133 (65-105)
--- NOTE | 2020-02-21 18:46 | PC.NURSE ---
This patient, Shasta Obando, was received from [facility] on 02/21/20 at 1846. Personal belongings list checked and signed. Patient/family oriented to unit policies and routines
--- NOTE | 2020-02-21 18:51 | PC.NURSE ---
Patient transferred to [facility], Report to Stephanie KRAFT and all belongings sent with patient
[2020-02-21] MEDS: PANTOPRAZOLE 40 MG TABLET PO (20:40)
[2020-02-21 21:46] LABS: Glucose Point of Care 265 (65-105)
[2020-02-22] MEDS: ACETAMINOPHEN 325 MG TABLET 650 MG PO ×3 (03:20→22:29)
[2020-02-22 05:37] VITALS: BP 147/61; PULSE 77; RESP 16; TEMP 36.9; O2SAT 97
[2020-02-22 06:06] LABS: Basophils Percent Auto 0.3 % (0.2-1.2); Eosinophils Absolute Auto 0.1 K/mm3 (0-0.3); Eosinophils Percent Auto 1.2 % (0-4.4); Hematocrit 26.5 % (37.0-47.0); Hemoglobin 8.4 g/dL (12.0-15.0); Immature Granulocyte Absolute 0.04 K/mm3 (0.00-0.031); Immature Granulocyte Percent A 0.4 % (0-0.5); Immature Reticulocyte Fraction 36.3 % (3.0-15.9); Lymphocytes Absolute Auto 1.39 K/mm3 (0.9-3.2); Lymphocytes Percent Auto 14.9 % (18.3-44.2); Mean Corpuscular HGB Conc 31.7 g/dl (32-36); Mean Corpuscular Hemoglobin 31.1 pg (26-34); Mean Corpuscular Volume 98.1 fl (80-100); Monocytes Absolute Auto 0.9 K/mm3 (0.1-0.6); Monocytes Percent Auto 9.7 % (2.6-8.5); Neutrophils Absolute Auto 6.9 K/mm3 (1.3-6.7); Neutrophils Percent Auto 73.5 % (45.5-73.1); Platelet Count Result 168 k/mm3 (150-375); Red Cell Distribution Width 22.1 % (11.5-14.5); Reticulocyte Hemoglobin Conten 37.7 pg (28.2-35.7); Reticulocyte Percent 8.44 % (0.7-4.3); Reticulocytes Absolute 0.23 B/L (32.2-175.7); White Blood Count 9.4 K/mm3 (4.5-10.0)
[2020-02-22 06:16] LABS: Lactate Dehydrogenase 344 U/L (313-618)
[2020-02-22 06:33] LABS: Iron 32 ug/dL (37-170)
[2020-02-22 06:42] LABS: Percent Iron Saturation 13 % (20-50)
[2020-02-22 07:03] LABS: Glucose Point of Care 184 (65-105)
[2020-02-22 07:19] LABS: Anion Gap 7 mmol/L (8-16); Blood Urea Nitrogen 29 mg/dL (7-17); Calcium 8.1 mg/dL (8.4-10.2); Carbon Dioxide 32 mmol/L (22-30); Chloride 95 mmol/L (98-107); Estimated Glomerular Filt Rate 17; Glucose 175 mg/dL (65-105); Lactate Dehydrogenase 351 U/L (313-618); Potassium 3.4 mmol/L (3.4-5.0); Sodium 134 mmol/L (137-145)
[2020-02-22] MEDS: PANTOPRAZOLE 40 MG TABLET PO ×2 (08:41→20:27)
--- NOTE | 2020-02-22 09:44 | PM.PNNEP ---
Progress Note: A&P Assessment and Plan (1) Upper GI bleed: Code(s): K92.2 - Gastrointestinal hemorrhage, unspecified Status: Acute Assessment and Plan: Shasta sounds like she has a GI bleed. she says that she saw a little bit of blood in her stool this morning. Her hemoglobin Is 8.4 today. GI has been consulted. EGD to be done tomorrow (2) Hypokalemia: Code(s): E87.6 - Hypokalemia Status: Acute Assessment and Plan: Resolved (3) Atrial fibrillation: Qualifiers: Atrial fibrillation type: unspecified Qualified Code(s): I48.91 - Unspecified atrial fibrillation Code(s): I48.91 - Unspecified atrial fibrillation Status: Chronic Assessment and Plan: She has a watchman device, no need for anticoagulation (4) ESRD (end stage renal disease) on dialysis: Code(s): N18.6 - End stage renal disease; Z99.2 - Dependence on renal dialysis Status: Chronic Assessment and Plan: hemodialysis due tomorrow Subjective Date/time seen: 02/22/20 09:44 Review of Systems Cardiovascular: Cardiovascular: Reports no additional cardiovascular complaints Respiratory: Respiratory: Reports no additional respiratory complaints Gastrointestinal: Gastrointestinal: Reports no additional gastrointestinal complaints Genitourinary: Genitourinary: Reports no additional female genitourinary complaints Exam Narrative: Exam Narrative: WDWN in NAD skin no rash head ncat lungs clear cor reg no rub or gallop abd BS+ nontender and soft ext no edema. Objective Data Vital Signs Vital Signs: Vital Signs - 24 hr 02/21/20 12:00 02/21/20 12:32 02/21/20 12:48 Temperature 36.9 C 36.6 C Pulse Rate 66 72 60 Pulse Rate [Apical] Respiratory Rate 14 18 Blood Pressure 138/57 L 134/61 148/58 H Pulse Oximetry 99 02/21/20 13:00 02/21/20 13:15 02/21/20 13:30 Temperature Pulse Rate 69 72 73 Pulse Rate [Apical] Respiratory Rate Blood Pressure 138/57 L 137/57 L 157/60 H Pulse Oximetry 02/21/20 13:45 02/21/20 14:00 02/21/20 14:15 Temperature 36.6 C Pulse Rate 77 76 77 Pulse Rate [Apical] Respiratory Rate 18 Blood Pressure 152/66 H 138/49 L 144/74 H Pulse Oximetry 02/21/20 14:25 02/21/20 14:30 02/21/20 14:41 Temperature 36.5 C Pulse Rate 76 76 67 Pulse Rate [Apical] Respiratory Rate 18 Blood Pressure 144/74 H 134/58 L 143/67 H Pulse Oximetry 02/21/20 14:45 02/21/20 15:00 02/21/20 15:15 Temperature 36.5 C 36.4 C L Pulse Rate 74 72 78 Pulse Rate [Apical] Respiratory Rate 18 18 Blood Pressure 152/66 H 145/65 H 147/65 H Pulse Oximetry 02/21/20 15:45 02/21/20 16:00 02/21/20 16:15 Temperature 36.9 C Pulse Rate 78 76 72 Pulse Rate [Apical] Respiratory Rate 16 Blood Pressure 148/70 H 141/47 H 148/60 H Pulse Oximetry 99 02/21/20 16:26 02/21/20 16:29 02/21/20 21:48 Temperature 36.3 C L 37.1 C Pulse Rate 73 81 Pulse Rate [Apical] 73 Respiratory Rate 16 Blood Pressure 156/82 H 118/46 L Pulse Oximetry 100 02/22/20 05:37 Temperature 36.9 C Pulse Rate 77 Pulse Rate [Apical] Respiratory Rate 16 Blood Pressure 147/61 H Pulse Oximetry 97 Intake/Output Intake/Output: Intake & Output 02/19/20 02/20/20 02/21/20 02/22/20 23:59 23:59 23:59 23:59 Intake Total 0 1780 670 Balance 0 1780 670 Meds/Results Medications: Active Medications Generic Name Dose Route Start Last Admin Trade Name Freq PRN Reason Stop Dose Admin Acetaminophen 650 mg 02/20/20 18:16 02/22/20 08:43 Tylenol Tablet PO 650 mg Q4H PRN Administration Mild Pain (1-3) or Fever Dextrose 12.5 gm 02/20/20 19:42 Dextrose 50% Syringe IV PUSH PRN PRN Hypoglycemia Protocol Glucagon 1 mg 02/20/20 19:42 Glucagon For Inj IM PRN PRN Hypoglycemia Protocol Dextrose 1,000 mls @ 100 mls/hr 02/20/20 19:42 Dextrose 5% 1,0
--- NOTE | 2020-02-22 11:25 | WPDGIPROGNO ---
Progress Note: A&P Assessment and Plan (1) Acute on chronic blood loss anemia: Code(s): D62 - Acute posthemorrhagic anemia Status: Acute Assessment and Plan: s/p blood transfusion with hb up to 8.4 LDH normal, pending haptoglobin EGD tomorrow by Dr Starr, if negative then consider SB capsule endoscopy as outpatient she also has AOCD, may need to see hematology if work up negative (2) Occult blood in stools: Code(s): R19.5 - Other fecal abnormalities Status: Acute (3) Gastrointestinal bleed: Code(s): K92.2 - Gastrointestinal hemorrhage, unspecified Status: Acute Assessment and Plan: on ppi, remote h/o ulcer but last EGD did not reveal any new lesion or ulcer (4) ESRD (end stage renal disease) on dialysis: Code(s): N18.6 - End stage renal disease; Z99.2 - Dependence on renal dialysis Status: Chronic Assessment and Plan: by nephrology Subjective Date/time seen: 02/22/20 11:25 Interval history: she saw small amount of dark blood in stool today but otherwise she is doing well, received blood transfusion with appropriate response Review of Systems Review of Systems: All systems reviewed & are unremarkable except as noted in HPI and below Exam Const: General: comfortable and no acute distress HENMT: General nose exam: Normal nares present Eyes: General: appearance normal, both eyes and all related structures Neck: Neck: no JVD Resp: Auscultation: clear to auscultation bilaterally Cardio: Rate: regular rate Rhythm: regular rhythm GI: Inspection: non-distended GI Palp: Yes Soft to palpation, No Firmness to palpation present (GI) and No Tenderness to palpation present (GI) Auscultation: normal bowel sounds Skin: General skin exam: pallor Neuro: General: gait normal Speech: normal speech Extrem: Other: partial rt foot amputation AV fistula in arm Psych: Mental Status: mental status grossly normal Objective Data Vital Signs Vital Signs: Vital Signs - 24 hr 02/21/20 12:00 02/21/20 12:32 02/21/20 12:48 Temperature 98.4 F 97.9 F Pulse Rate 66 72 60 Pulse Rate [Apical] Respiratory Rate 14 18 Blood Pressure 138/57 L 134/61 148/58 H Pulse Oximetry 99 02/21/20 13:00 02/21/20 13:15 02/21/20 13:30 Temperature Pulse Rate 69 72 73 Pulse Rate [Apical] Respiratory Rate Blood Pressure 138/57 L 137/57 L 157/60 H Pulse Oximetry 02/21/20 13:45 02/21/20 14:00 02/21/20 14:15 Temperature 97.8 F Pulse Rate 77 76 77 Pulse Rate [Apical] Respiratory Rate 18 Blood Pressure 152/66 H 138/49 L 144/74 H Pulse Oximetry 02/21/20 14:25 02/21/20 14:30 02/21/20 14:41 Temperature 97.7 F Pulse Rate 76 76 67 Pulse Rate [Apical] Respiratory Rate 18 Blood Pressure 144/74 H 134/58 L 143/67 H Pulse Oximetry 02/21/20 14:45 02/21/20 15:00 02/21/20 15:15 Temperature 97.7 F 97.5 F L Pulse Rate 74 72 78 Pulse Rate [Apical] Respiratory Rate 18 18 Blood Pressure 152/66 H 145/65 H 147/65 H Pulse Oximetry 02/21/20 15:45 02/21/20 16:00 02/21/20 16:15 Temperature 98.5 F Pulse Rate 78 76 72 Pulse Rate [Apical] Respiratory Rate 16 Blood Pressure 148/70 H 141/47 H 148/60 H Pulse Oximetry 99 02/21/20 16:26 02/21/20 16:29 02/21/20 21:48 Temperature 97.4 F L 98.8 F Pulse Rate 73 81 Pulse Rate [Apical] 73 Respiratory Rate 16 Blood Pressure 156/82 H 118/46 L Pulse Oximetry 100 02/22/20 05:37 Temperature 98.4 F Pulse Rate 77 Pulse Rate [Apical] Respiratory Rate 16 Blood Pressure 147/61 H Pulse Oximetry 97 Intake/Output Intake/Output: Intake & Output 02/19/20 02/20/20 02/21/20 02/22/20 23:59 23:59 23:59 23:59 Intake Total 0 1780 670 Balance 0 1780 670 Meds/Results Medications: Active Medications Generic Name Dose Route Start Last Admin Trade Name Freq PRN Reason Stop Dose Admin Acetaminophen 650 mg 02/20/20 18:16 02/22/20 08:43 Tylenol Ta
[2020-02-22 11:49] LABS: Glucose Point of Care 223 (65-105)
[2020-02-22] MEDS: INSULIN ASPART (*BKC) 100 UNITS/ML SUB-Q ×3 (12:06→20:25)
[2020-02-22 14:32] LABS: IFOB Positive Control Positive; Immunochemical Fecal Occult Bl Positive (N)
--- NOTE | 2020-02-22 15:07 | PM.IMPN ---
Progress Note: A&P Assessment and Plan (1) Upper GI bleed: Code(s): K92.2 - Gastrointestinal hemorrhage, unspecified Status: Acute Assessment and Plan: Protonix 40 p.o. q.12. has received total of 3 units of packed cells with no evidence of ongoing blood loss and hgb 8.4 this am history of peptic disease but also most recent evaluation negative and could have multiple angiodysplasias EGD am 02/22 (2) Anemia: Qualifiers: Anemia type: unspecified type Qualified Code(s): D64.9 - Anemia, unspecified Code(s): D64.9 - Anemia, unspecified Status: Acute Assessment and Plan: Appears to be likely acute upper GI bleed. continue PPI and monitor hemoglobin. GI will repeat EGD 02/22. (3) Hypokalemia: Code(s): E87.6 - Hypokalemia Status: Acute Assessment and Plan: Mild hypokalemia - monitor serum potassum and replace as needed. 3.4 this am (4) ESRD (end stage renal disease) on dialysis: Code(s): N18.6 - End stage renal disease; Z99.2 - Dependence on renal dialysis Status: Chronic Assessment and Plan: Nephrology, Dr. Suarez , dialysis yesterday and repeat 02/22 M/W/ (5) Type 2 diabetes mellitus: Qualifiers: Diabetes mellitus terminal clerk insulin use: without snf use Diabetes mellitus complication status: without complication Qualified Code(s): E11.9 - Type 2 diabetes mellitus without complications Code(s): E11.9 - Type 2 diabetes mellitus without complications Status: Chronic Assessment and Plan: Accuchecks, SSI Coverage, Hypoglycemic protocol. (6) Hypertension: Qualifiers: Hypertension type: unspecified Qualified Code(s): I10 - Essential (primary) hypertension Code(s): I10 - Essential (primary) hypertension Status: Chronic Assessment and Plan: stable. monitor blood pressure. resumed antihypertensives with rising hemoglobin. (7) Atrial fibrillation: Qualifiers: Atrial fibrillation type: unspecified Qualified Code(s): I48.91 - Unspecified atrial fibrillation Code(s): I48.91 - Unspecified atrial fibrillation Status: Chronic Assessment and Plan: s/p watchman procedure. continue beta-deena. Subjective Date/time seen: 02/22/20 15:07 Interval history: date of visit 02/21. 74-year-old type 2 diabetic chronic renal failure on dialysis admitted with severe anemia. She has had and GI blood loss in the past with recent EGD and colonoscope within the last few months revealing no source of bleeding. CT scan was performed to rule out retroperitoneal bleed and has received total now 3 units of packed cells when her hemoglobin initially 4.5. she feels much better. Did have guaiac-positive stool and GI is will repeat endoscopy 02/22 and possible capsular endoscopy outpatient. Dark stools still and some blood mixed this am Exam Narrative: Exam Narrative: blood pressure 144/60 pulse is 76 irregular pupil equal reactive to light sclera anicteric lungs faint crackle Left post base CV irregular with systolic murmur abdomen soft nontender extrem no edema distal pulses 1+, R foot bandaged neuro alert pleasant cooperative no focal deficits Objective Data Vital Signs Vital Signs: Vital Signs - 24 hr 02/21/20 15:15 02/21/20 15:45 02/21/20 16:00 Temperature 36.9 C Pulse Rate 78 78 76 Pulse Rate [Apical] Respiratory Rate 16 Blood Pressure 147/65 H 148/70 H 141/47 H Pulse Oximetry 99 02/21/20 16:15 02/21/20 16:26 02/21/20 16:29 Temperature 36.3 C L Pulse Rate 72 73 Pulse Rate [Apical] 73 Respiratory Rate Blood Pressure 148/60 H 156/82 H Pulse Oximetry 02/21/20 21:48 02/22/20 05:37 Temperature 37.1 C 36.9 C Pulse Rate 81 77 Pulse Rate [Apical] Respiratory Rate 16 16 Blood Pressure 118/46 L 147/61 H Pulse Oximetry 100 97 Intake/Output Intake/Output: Intake & Output 02/19/20 02/20/20 08
[2020-02-22 16:00] VITALS: BP 125/45; PULSE 78; RESP 20; TEMP 37.1; O2SAT 100
[2020-02-22 16:37] LABS: Glucose Point of Care 206 (65-105)
[2020-02-22 20:06] LABS: Glucose Point of Care 263 (65-105)
[2020-02-22 22:33] VITALS: BP 140/56; PULSE 79; RESP 18; TEMP 36.7; O2SAT 100
[2020-02-23] VITALS (24 sets, daily range): BP systolic 100–155; BP diastolic 43–71; PULSE 70–82; RESP 16–20; TEMP 36.5–37; O2SAT 91–100; BMI 24.9
[2020-02-23 05:56] LABS: Glucose Point of Care 183 (65-105)
[2020-02-23 06:09] LABS: Basophils Percent Auto 0.4 % (0.2-1.2); Eosinophils Absolute Auto 0.2 K/mm3 (0-0.3); Eosinophils Percent Auto 2.1 % (0-4.4); Hematocrit 27.6 % (37.0-47.0); Hemoglobin 8.6 g/dL (12.0-15.0); Immature Granulocyte Absolute 0.02 K/mm3 (0.00-0.031); Immature Granulocyte Percent A 0.2 % (0-0.5); Lymphocytes Absolute Auto 1.55 K/mm3 (0.9-3.2); Mean Corpuscular HGB Conc 31.2 g/dl (32-36); Mean Corpuscular Hemoglobin 31.2 pg (26-34); Mean Platelet Volume 12.1 fl (7.4-10.4); Monocytes Absolute Auto 0.8 K/mm3 (0.1-0.6); Monocytes Percent Auto 9.6 % (2.6-8.5); Neutrophils Absolute Auto 5.6 K/mm3 (1.3-6.7); Neutrophils Percent Auto 68.7 % (45.5-73.1); Platelet Count Result 159 k/mm3 (150-375); Red Blood Count 2.76 M/mm3 (4.2-5.4); Red Cell Distribution Width 21.8 % (11.5-14.5); White Blood Count 8.2 K/mm3 (4.5-10.0)
[2020-02-23 06:27] LABS: Anion Gap 10 mmol/L (8-16); Blood Urea Nitrogen 50 mg/dL (7-17); Calcium 8.2 mg/dL (8.4-10.2); Carbon Dioxide 30 mmol/L (22-30); Chloride 90 mmol/L (98-107); Estimated Glomerular Filt Rate 10; Glucose 180 mg/dL (65-105); Sodium 130 mmol/L (137-145)
[2020-02-23 07:52] LABS: Glucose Point of Care 193 (65-105)
--- NOTE | 2020-02-23 08:06 | WPDANESEPPF ---
Anes - Initial Pre Proc Eval Procedure: Operation Date: 02/23/20 11:30 Proposed Procedures p Esophagogastroduodenoscopy - Robles Starr MD Date/Time: 02/23/20 08:06 Surgeon: Rebekah Meléndez MD Pre Op Diagnosis: anemia, GI bleed, ESRD on dialysis Patient Data Age: 74 Gender: F Height: 1.5 m Weight: 55.9 kg Last Vital Signs Temp 36.5 C 02/23/20 06:27 Pulse 80 02/23/20 06:27 Resp 16 02/23/20 06:27 BP 155/55 H 02/23/20 06:27 Pulse Ox 98 02/23/20 06:27 Allergies Allergy/AdvReac Type Severity Reaction Status Date / Time cefazolin Allergy Mild nausea/dizz Verified 02/23/20 10:23 iness enalapril Allergy Unknown cough Verified 02/23/20 10:23 pioglitazone Allergy Unknown Unknown Verified 02/23/20 10:23 tramadol Allergy Unknown hallucinati Verified 02/23/20 10:23 ons gabapentin Allergy Hallucinati Verified 02/23/20 10:23 ng Home Medications Medication Instructions Recorded Confirmed Type aspirin 81 mg PO DAILY 06/12/19 02/20/20 History cyanocobalamin (vitamin B-12) 500 mcg PO DAILY 06/12/19 02/20/20 History ergocalciferol (vitamin D2) 50,000 unit PO WEEKLY 12/19/19 02/20/20 History [Vitamin D2] pantoprazole 40 mg PO DAILY 12/19/19 02/20/20 History sucralfate 1 g PO TIDWM 12/19/19 02/20/20 History ferrous sulfate 325 mg PO BID #60 tablet 12/22/19 02/20/20 Rx pen needle, diabetic 32 gauge x #100 each 02/09/20 02/20/20 Rx 1/5 acetaminophen [Acetaminophen Extra 1,000 mg PO Q6H PRN 02/20/20 02/20/20 History Strength] carvedilol 6.25 mg PO DAILY 02/20/20 02/20/20 History collagenase clostridium histo. 1 applic TOPICAL DAILY 02/20/20 02/20/20 History [Santyl] sitagliptin [Januvia] 100 mg PO DAILY 02/20/20 02/20/20 History Laboratory Tests 02/22/20 02/22/20 02/22/20 07:10 11:47 16:27 WBC RBC Hgb Hct MCV MCH MCHC RDW Plt Count MPV Immature Gran % (Auto) Neut % (Auto) Lymph % (Auto) [place] % (Auto) Eos % (Auto) Baso % (Auto) Lymph # (Auto) [place] # (Auto) Eos # (Auto) Baso # (Auto) Abs Immat Gran (auto) Absolute Neuts (auto) Absolute Nucleated RBC Nucleated RBC % Sodium Potassium Chloride Carbon Dioxide Anion Gap BUN Creatinine Estim Creat Clear Calc Estimated GFR Glucose POC Capillary Glucose 223 mg/dl H mg/dl 206 mg/dl H mg/dl (65-105) (65-105) Calcium Stl Occult Blood (IFOB) Positive H (N) 02/22/20 02/23/20 02/23/20 20:04 05:53 05:53 WBC 8.2 K/mm3 K/mm3 (4.5-10.0) RBC 2.76 M/mm3 L M/mm3 (4.2-5.4) Hgb 8.6 g/dL L g/dL (12.0-15.0) Hct 27.6 % L % (37.0-47.0) MCV 100.0 fl fl (80-100) MCH 31.2 pg pg (26-34) MCHC 31.2 g/dl L g/dl (32-36) RDW 21.8 % H % (11.5-14.5) Plt Count 159 k/mm3 k/mm3 (150-375) MPV 12.1 fl H fl (7.4-10.4) Immature Gran % (Auto) 0.2 % % (0-0.5) Neut % (Auto) 68.7 % % (45.5-73.1) Lymph % (Auto) 19.0 % % (18.3-44.2) [place] % (Auto) 9.6 % H % (2.6-8.5) Eos % (Auto) 2.1 % % (0-4.4) Baso % (Auto) 0.4 % % (0.2-1.2) Lymph # (Auto) 1.55 K/mm3 K/mm3 (0.9-3.2) [place] # (Auto) 0.8 K/mm3 H K/mm3 (0.1-0.6) Eos # (Auto) 0.2 K/mm3 K/mm3 (0-0.3) Baso # (Auto) 0.0 K/mm3 K/mm3 (0.0-0.1) Abs Immat Gran (auto) 0.02 K/mm3 K/mm3 (0.00-0.031) Absolute Neuts (auto) 5.6 K/mm3 K/mm3 (1.3-6.7) Absolute Nucleated RBC 0.0 K/mm3 K/mm3 (0.0-0.012) Nuc
--- NOTE | 2020-02-23 10:05 | PC.NURSE ---
Patient to GI lab per mario. Report given to ABENA Tellez.
[2020-02-23] MEDS: SODIUM CHLORIDE 0.9% IV 500 ML 10 ML IV CONT (10:26)
[2020-02-23 10:38] LABS: Glucose Point of Care 176 (65-105)
[2020-02-23] MEDS: BENZOCAINE (*SP) 60 ML SPRAY CAN (HURRICAINE) 1 SPRAY MUCOUS MEM (11:44)
[2020-02-23] MEDS: SIMETHICONE ORAL SUSPENSION 20 MG/0.3 ML 30 ML BOTTLE 0.6 ML PO (11:50)
--- NOTE | 2020-02-23 12:30 | PC.NURSE ---
Patient returned from GI lab per stretcher.
--- NOTE | 2020-02-23 14:21 | PC.NURSE ---
Patient to dialysis per bed. Report to ABENA Hodges.
--- NOTE | 2020-02-23 15:43 | PM.PNNEP ---
Progress Note: A&P Assessment and Plan (1) Upper GI bleed: Code(s): K92.2 - Gastrointestinal hemorrhage, unspecified Status: Acute Assessment and Plan: Shasta sounds like she has a GI bleed. she says that she saw a little bit of blood in her stool this morning. EGD negative. colonoscopy recently negative. GI evaluating. (2) Hypokalemia: Code(s): E87.6 - Hypokalemia Status: Acute Assessment and Plan: Resolved (3) Atrial fibrillation: Qualifiers: Atrial fibrillation type: unspecified Qualified Code(s): I48.91 - Unspecified atrial fibrillation Code(s): I48.91 - Unspecified atrial fibrillation Status: Chronic Assessment and Plan: She has a watchman device, no need for anticoagulation (4) ESRD (end stage renal disease) on dialysis: Code(s): N18.6 - End stage renal disease; Z99.2 - Dependence on renal dialysis Status: Chronic Assessment and Plan: HD in process. Subjective Date/time seen: 02/23/20 15:43 Interval history: alert. feels better. on HD sara it well. seen at 3:35pm bp is good. had EGD showing HH and no source for bleeding. Review of Systems Cardiovascular: Cardiovascular: Reports no additional cardiovascular complaints Respiratory: Respiratory: Reports no additional respiratory complaints Gastrointestinal: Gastrointestinal: Reports no additional gastrointestinal complaints Genitourinary: Genitourinary: Reports no additional female genitourinary complaints Exam Narrative: Exam Narrative: WDWN in NAD skin no rash head ncat lungs clear cor reg no rub abd BS+ nontender and soft ext no edema. Objective Data Vital Signs Vital Signs: Vital Signs - 24 hr 02/22/20 16:00 02/22/20 22:33 02/23/20 06:27 Temperature 37.1 C 36.7 C 36.5 C Pulse Rate 78 79 80 Respiratory Rate 20 18 16 Blood Pressure 125/45 L 140/56 L 155/55 H Pulse Oximetry 100 100 98 02/23/20 10:24 02/23/20 11:59 02/23/20 12:09 Temperature 37.0 C Pulse Rate 75 71 72 Respiratory Rate 16 18 17 Blood Pressure 147/62 H 100/43 L 102/44 L Pulse Oximetry 100 91 91 02/23/20 12:19 02/23/20 14:20 02/23/20 14:28 Temperature 36.5 C Pulse Rate 82 72 72 Respiratory Rate 20 16 Blood Pressure 128/56 L 130/58 L 108/48 L Pulse Oximetry 98 02/23/20 14:40 02/23/20 14:45 02/23/20 15:00 Temperature Pulse Rate 73 75 70 Respiratory Rate Blood Pressure 125/59 L 132/57 L 125/60 Pulse Oximetry 02/23/20 15:15 02/23/20 15:30 Temperature Pulse Rate 74 78 Respiratory Rate Blood Pressure 125/50 L 115/67 Pulse Oximetry Intake/Output Intake/Output: Intake & Output 02/20/20 02/21/20 02/22/20 02/23/20 23:59 23:59 23:59 23:59 Intake Total 0 1780 1412 340 Output Total 200 Balance 0 1780 1412 140 Meds/Results Medications: Active Medications Generic Name Dose Route Start Last Admin Trade Name Freq PRN Reason Stop Dose Admin Acetaminophen 650 mg 02/20/20 18:16 02/22/20 22:29 Tylenol Tablet PO 650 mg Q4H PRN Administration Mild Pain (1-3) or Fever Dextrose 12.5 gm 02/20/20 19:42 Dextrose 50% Syringe IV PUSH PRN PRN Hypoglycemia Protocol Glucagon 1 mg 02/20/20 19:42 Glucagon For Inj IM PRN PRN Hypoglycemia Protocol Dextrose 1,000 mls @ 100 mls/hr 02/20/20 19:42 Dextrose 5% 1,000 Ml IVPB PRN PRN Hypoglycemia Protocol Insulin Aspart 2 - 5 units 02/21/20 16:30 02/23/20 12:50 Novolog SUB-Q Not Given ACHS THERESE Protocol Ondansetron HCl 4 mg 02/20/20 18:16 Zofran Inj IV PUSH Q4H PRN Nausea Pantoprazole Sodium 40 mg 02/24/20 09:00 Protonix PO QAM THERESE Simethicone 0.6 ml 02/23/20 11:49 02/23/20 11:50 Mylicon Infants Drops PO 0.6 ml ONCE PRN Administration Gas Discomfort Radiology Results: ITS Impressions Abdomen/Pelvis CT 02/20/20 17:41 IM
[2020-02-23] MEDS: EPOETIN ALFA-EPBX 10,000 UNITS/ML VIAL 20000 UNITS IV PUSH (16:48)
--- NOTE | 2020-02-23 18:42 | PC.NURSE ---
Patient returned from Dialysis per bed.
[2020-02-23 18:47] LABS: Glucose Point of Care 152 (65-105)
[2020-02-26 07:00] LABS: Haptoglobin 49 mg/dL (43-212)
--- NOTE | 2020-02-29 08:16 | PM.DS ---
DS: Admitting Diagnosis Admitting Diagnosis Admitting Diagnosis: anemia, GI bleed, ESRD on dialysis DS: Discharge Diagnosis Discharge Diagnosis (1) Upper GI bleed: Code(s): K92.2 - Gastrointestinal hemorrhage, unspecified Status: Acute Assessment and Plan: Protonix 40 p.o. q.12. received total of 3 units of packed cells with no evidence of ongoing blood loss and hgb 8.4 day prior to and 8.6 day of d/c history of peptic disease but also most recent evaluation negative and could have multiple angiodysplasias EGD 02/22 no source of blood loss. Will have outpt capsular endoscopy (2) Anemia: Qualifiers: Anemia type: unspecified type Qualified Code(s): D64.9 - Anemia, unspecified Code(s): D64.9 - Anemia, unspecified Status: Acute Assessment and Plan: Appears to be likely acute upper GI bleed but EGD 02/22 no source of blood loss. (3) ESRD (end stage renal disease) on dialysis: Code(s): N18.6 - End stage renal disease; Z99.2 - Dependence on renal dialysis Status: Chronic Assessment and Plan: Nephrology, Dr. Suarez , dialysis M/W/F continue as outpatient and received one extra session while here (4) Type 2 diabetes mellitus: Qualifiers: Diabetes mellitus superintendent terminal insulin use: without superintendent terminal use Diabetes mellitus complication status: without complication Qualified Code(s): E11.9 - Type 2 diabetes mellitus without complications Code(s): E11.9 - Type 2 diabetes mellitus without complications Status: Chronic Assessment and Plan: Accuchecks, SSI Coverage, Here and [facility] as outpatient. FBS 152 day of d/c (5) Hypertension: Qualifiers: Hypertension type: unspecified Qualified Code(s): I10 - Essential (primary) hypertension Code(s): I10 - Essential (primary) hypertension Status: Chronic Assessment and Plan: stable. monitor blood pressure. resumed antihypertensives with rising hemoglobin. low dose coreg (6) Atrial fibrillation: Qualifiers: Atrial fibrillation type: unspecified Qualified Code(s): I48.91 - Unspecified atrial fibrillation Code(s): I48.91 - Unspecified atrial fibrillation Status: Chronic Assessment and Plan: s/p watchman procedure. continue beta-deena. DS: Summary Hospital Course Hospital Course: [age]-year-old diabetic with renal failure admitted with recurrent GI bleeding. Hemoglobin at 4.7 and after 3 units stabilized at the 8.6. repeat EGD no source of blood loss found and will schedule outpatient capsular endoscopy per GI Time Spent with Patient Time attestation: Total time spent providing and/or coordinating discharge services: 35 minutes Exam Narrative: Exam Narrative: condition on discharge blood pressure 142/60 pulse 78 afebrile lungs clear CV irregular rate rhythm no murmur abdomen soft nontender extremities without edema, white foot wound bandage and scheduled follow-up with surgeon 02/23 Discharge Plan Discharge Attending physician on discharge: Barrett Gardner Consulting providers: Leonard Lerma ; Jacob Suarez ; Juventino Corey ; Danny Soliz ; Duarte Adams Discharging Clinician: Barrett Gardner Patient Disposition: Home, Self-Care Activity: as tolerated Diet: diabetic and low sodium Discharge Instructions: follow up for foot care as scheduled 02/23 Patient Instructions: Antibiotic Form, Gastrointestinal Bleeding (DC), Chronic Kidney Disease Diet (DC), Pain Management (DC), Anemia (DC), Upper Endoscopy (DC) Stand Alone Forms: General Discharge Information Follow-up/Referrals: Robles Starr MD [Physician] - 1 Week (capsular endoscopy) David Coppola MD [Primary Care Provider] - Keep Reg. Scheduled Appt. Jacob Suarez MD [Physician] - 4 Weeks (continue M/W/F dialysis) Discharge Medications: Continued cyanocobalamin (vitamin B-12) 500 mcg Tablet
== END 2020-02-23 19:40 | disposition home or self-care (01) | DRG 377 ==
LOC: ANHED 18:18 → ANHIMU 02-21 03:25 → ANH3MED 02-22 23:14 → ANHIMU 02-25 10:39
PROVIDERS: Family Medicine; Internal Medicine Gastroenterology; Internal Medicine Nephrology; Admitting Provider Family Medicine; Emergency Provider Emergency Medicine; PCP Family Medicine; Visit Provider Internal Medicine
PROC: 0DJ08ZZ Inspection of Upper Intestinal Tract, Via Natural or Artificial Opening Endoscopic (ICD-10-PCS; CPT 43235; principal; 2020-02-23 11:30)
DX: K92.2 Gastrointestinal hemorrhage, unspecified (principal); N18.6 End stage renal disease; I48.20 Chronic atrial fibrillation, unspecified; I12.0 Hypertensive chronic kidney disease with stage 5 chronic kidney disease or end stage renal disease; D62 Acute posthemorrhagic anemia; E87.6 Hypokalemia; K44.9 Diaphragmatic hernia without obstruction or gangrene; M81.0 Age-related osteoporosis without current pathological fracture; N25.0 Renal osteodystrophy; E11.22 Type 2 diabetes mellitus with diabetic chronic kidney disease; I25.10 Atherosclerotic heart disease of native coronary artery without angina pectoris; D63.1 Anemia in chronic kidney disease; M17.0 Bilateral primary osteoarthritis of knee; Z96.651 Presence of right artificial knee joint; E78.5 Hyperlipidemia, unspecified; I48.0 Paroxysmal atrial fibrillation; I27.20 Pulmonary hypertension, unspecified; M48.061 Spinal stenosis, lumbar region without neurogenic claudication; I71.2 Thoracic aortic aneurysm, without rupture; Z99.2 Dependence on renal dialysis; Z98.42 Cataract extraction status, left eye; Z98.41 Cataract extraction status, right eye; Z89.431 Acquired absence of right foot; Z87.19 Personal history of other diseases of the digestive system
CPT/HCPCS: 36415; 36430; 74177; 80048; 80053; 82274; 82728; 83010; 83540; 83550; 83615; 85014; 85018; 85025; 85046; 85610; 86850; 86900; 86901; 86923; 93005; 97161; 97165; 99285; A9270; C9113; G0257; J1815; J2704; J7030; J7040; J7060; P9016; Q5106; Q9967

== ENCOUNTER → 2020-03-09 02:10 | Day surgery (SDC) | payer MEDICARE, MEDICAID, SELFPAY ==
--- NOTE | 2020-03-09 06:48 | SUR.OPER ---
Patient brought to GI Lab. Instructions for patient undergoing Capsule Endoscopy reviewed with patient. Consent form signed. Sensor array applied to patient's abdomen and connected to recorded. Patient swallowed capsule with 12 ozs of water infused with Simethicone. Patient instructed they may have clear liquids at 0830 this AM and eat or drink at 1030 this AM. Patient instructed to return to GI Lab at 1500 this afternoon for removal of recording device and to call [phone] or to return to the hospital if any nausea and vomiting or abdominal pain is experienced. TONY KRAFT
--- NOTE | 2020-03-10 08:52 | SUR.OPER ---
Patient returned to the GI Lab at 1450 for recorder box removal. Patient voiced no complaints. States they have understanding of instructions. Patient left ambulatory.
== END ==
PROVIDERS: PCP Family Medicine; Visit Provider Internal Medicine Gastroenterology
PROC: 0DJ07ZZ Inspection of Upper Intestinal Tract, Via Natural or Artificial Opening (ICD-10-PCS; CPT 91110; principal; 2020-03-09 07:00)
DX: D64.9 Anemia, unspecified (principal); K92.1 Melena
CPT/HCPCS: 91110; J7040

== ENCOUNTER 2020-03-11 11:09 | Outpatient (CLI) | payer MEDICARE, MEDICAID, SELFPAY ==
--- NOTE | ~2020-03-11 | XR_ITS ---
EXAMINATION: XR abdomen/kub 1V INDICATION: Capsule endoscopy monitoring TECHNIQUE: Supine views of the abdomen were obtained on 2 radiographs. COMPARISON: None FINDINGS: There is a large volume of colonic stool. The endoscopic capsule projects in the left upper quadrant and appears to be at the splenic flexure of the colon. There are no dilated loops of bowel. Phleboliths are noted in the pelvis. Serpiginous calcification of the left upper quadrant and in the pelvis is consistent with calcified atherosclerosis. There is mild hip osteoarthritis. IMPRESSION: 1. Endoscopic capsule projecting at the splenic flexure of the colon. 2. Constipation. Reviewed, dictated and finalized at location A.
== END 2020-03-11 11:10 | disposition home or self-care (01) ==
PROVIDERS: PCP Family Medicine; Visit Provider Internal Medicine Gastroenterology
DX: D64.9 Anemia, unspecified (principal); K59.00 Constipation, unspecified
CPT/HCPCS: 74018

== ENCOUNTER 2020-03-23 14:07 | Observation (INO) | payer MEDICARE, MEDICAID, SELFPAY ==
[2020-03-23] VITALS (18 sets, daily range): BP systolic 96–145; BP diastolic 33–92; PULSE 60–86; RESP 16–25; TEMP 36.6–37.2; O2SAT 98–100; BMI 28.2
[2020-03-23 14:48] LABS: Basophils Percent Auto 0.4 % (0.2-1.2); Eosinophils Absolute Auto 0.1 K/mm3 (0-0.3); Eosinophils Percent Auto 1.3 % (0-4.4); Immature Granulocyte Absolute 0.01 K/mm3 (0.00-0.031); Immature Granulocyte Percent A 0.1 % (0-0.5); Lymphocytes Absolute Auto 1.66 K/mm3 (0.9-3.2); Lymphocytes Percent Auto 23.9 % (18.3-44.2); Mean Corpuscular HGB Conc 30.5 g/dl (32-36); Mean Corpuscular Hemoglobin 31.6 pg (26-34); Mean Corpuscular Volume 103.5 fl (80-100); Mean Platelet Volume 11.9 fl (7.4-10.4); Monocytes Absolute Auto 0.8 K/mm3 (0.1-0.6); Monocytes Percent Auto 10.8 % (2.6-8.5); Neutrophils Absolute Auto 4.4 K/mm3 (1.3-6.7); Neutrophils Percent Auto 63.5 % (45.5-73.1); Platelet Count Result 172 k/mm3 (150-375); Red Blood Count 1.71 M/mm3 (4.2-5.4); Red Cell Distribution Width 17.5 % (11.5-14.5)
[2020-03-23 14:54] LABS: Hematocrit 17.7 % (37.0-47.0); Hemoglobin 5.4 g/dL (12.0-15.0)
[2020-03-23 14:58] LABS: INR 1.2; Prothrombin Time 15.3 Seconds (11.1-14.7)
[2020-03-23 14:59] LABS: Alanine Aminotransferase 20 U/L (4-35); Albumin Level 3.3 g/dL (3.5-5.1); Alkaline Phosphatase 277 U/L (38-126); Anion Gap 13 mmol/L (8-16); Aspartate Amino Transferase 22 U/L (14-36); Bilirubin,Total 0.5 mg/dL (0.2-1.3); Blood Urea Nitrogen 80 mg/dL (7-17); Calcium 7.4 mg/dL (8.4-10.2); Carbon Dioxide 28 mmol/L (22-30); Chloride 90 mmol/L (98-107); Estimated Glomerular Filt Rate 10; Glucose 156 mg/dL (65-105); Partial Thromboplastin Time 34.3 SECONDS (22.3-36.8); Potassium 4.5 mmol/L (3.4-5.0); Sodium 131 mmol/L (137-145)
--- NOTE | 2020-03-23 15:08 | ED.GENADULT ---
HPI - General Adult General Chief complaint: Recheck/Abnormal Lab/Rx Stated complaint: low H&H Time Seen by Provider: 03/23/20 14:45 History of Present Illness HPI narrative: Patient is a 74 y/o female complaining of low H&H. She has ERSD and she is on dialysis MWF. She had routine lab drawn during dialysis yesterday. She states that she was called today for Hgb of 5. She feels weak. She also has been having dark stool for a while. She denies any abdominal pain or bright red blood in stool. She had previous work up for GI bleeding including EGD, colonoscopy and capsule endoscopy. Related Data Home Medications Medication Instructions Recorded Confirmed cyanocobalamin (vitamin B-12) 500 mcg PO DAILY 06/12/19 02/20/20 ergocalciferol (vitamin D2) 50,000 unit PO WEEKLY 12/19/19 02/20/20 [Vitamin D2] pantoprazole 40 mg PO DAILY 12/19/19 02/20/20 Januvia 100 mg PO DAILY 02/20/20 02/20/20 Santyl 1 applic TOPICAL DAILY 02/20/20 02/20/20 acetaminophen [Acetaminophen Extra 1,000 mg PO Q6H PRN 02/20/20 02/20/20 Strength] carvedilol 6.25 mg PO DAILY 02/20/20 02/20/20 Allergies Allergy/AdvReac Type Severity Reaction Status Date / Time cefazolin Allergy Mild nausea/dizz Verified 03/23/20 14:42 iness enalapril Allergy Unknown cough Verified 03/23/20 14:42 pioglitazone Allergy Unknown Unknown Verified 03/23/20 14:42 tramadol Allergy Unknown hallucinati Verified 03/23/20 14:42 ons gabapentin Allergy Hallucinati Verified 03/23/20 14:42 ng Review of Systems Constitutional: Constitutional: Reports as per HPI, Denies chills, Denies fever(s), Denies headache(s) and Reports weakness Eyes: Eyes: Denies blurry vision ENT: Denies headache(s) and Denies neck pain Cardiovascular: Cardiovascular: Denies chest pain and Denies dyspnea Respiratory: Respiratory: Denies cough and Denies dyspnea Gastrointestinal: Gastrointestinal: Denies abdominal pain, Reports melena, Denies diarrhea, Denies nausea and Denies vomiting Genitourinary: Genitourinary: Denies hematuria and Denies dysuria Musculoskeletal: Musculoskeletal: Denies back pain and Denies neck pain Neurologic: Denies headache(s) and Denies weakness PMFSH Past Medical History Medical History Acute on chronic blood loss anemia Amputated toe of left foot Anemia of chronic disease Megaloblastic anemia AV fistula Left upper extremity Closed fracture of lateral portion of right tibial plateau (~2014) End stage renal disease on dialysis Dialysis days are Sunday, Sunday, and Sunday. She is on the transplant list at [facility]. Hiatal hernia Hyperlipidemia Hypertension Occult blood in stools Osteoarthritis of both knees Osteoporosis PAD (peripheral artery disease) With history of midfoot amputation Paroxysmal atrial fibrillation Pulmonary hypertension Echocardiogram August 2019: EF 65-70 %, indeterminate left ventricular diastolic function, mild biatrial enlargement, mild mitral valve regurgitation, moderate tricuspid regurgitation, mild pulmonary hypertension with RVSP of 39 Spinal stenosis at L4-L5 level High-grade central canal stenosis noted on MRI February 2017 Staphylococcal septicemia (~2013) Thoracic ascending aortic aneurysm 4.[address] scan from August 2019 Type 2 diabetes mellitus Hemoglobin A1c was 6.6 in July 2019. Surgical History Surgical History Amputation at midfoot 5th digit right foot History of arthroplasty of right ankle History of arthroscopy (~12/07/12) wrist History of bilateral cataract extraction History of colonoscopy (~12/02/15) History of knee replacement (~2015) right Presence of Watchman left atrial appendage closure device Family History Family History Father Hypertension Heart disease Mother Diabetes mellitus Hypertension Tobacco dependence Lung
--- NOTE | 2020-03-23 17:23 | PC.NURSE ---
This patient, Shasta Obando, was admitted to Medical Room 349-01. Patient/family oriented to hospital policies and general routines including ID bracelet, bed and alarms, visiting hours, pain management, procedures, bathroom and other care routines, personal items, smoking policy, room service/diet, and visiting hours. Valuables list has been completed. Information on how to activate the Rapid Response Team has been discussed. Patient/Family are encouraged to report perceived risks to care and to ask questions if they do not understand what they are told or what they should do.
[2020-03-23] MEDS: SODIUM CHLORIDE 0.9% IV 250 ML 30 ML IV CONT ×2 (17:44→21:32)
--- NOTE | 2020-03-23 20:41 | PM.IMHP ---
H&P: HPI History of Present Illness Date/Time: 03/23/20 20:41 Chief complaint: anemia Narrative: This is a pleasant 74 year old Diabetic female with ESRD on HD on // for the past 6 years who presented to the hospital today after being found to have a low hemoglobin of 5 on her labs that were drawn at Dialysis this past Sunday. The patient admits that she has had ongoing black stools for the past 10 days. During her last hospitalization last month she underwent EGD and colonoscopy which was negative for any source of bleeding but it was thought that she likely had an upper GI bleed and does have a history of peptic ulcer disease. She is known to be on aspirin daily but denies any blood thinners. She does not take any NSAIDS as this is what was thought to be the cause of Her renal failure. after being discharged this past month the patient did have capsule endoscopy performed which she states was unremarkable. the patient was evaluated emergency room today and found to have a hemoglobin of 5.4 and hematocrit of 17.7. On my encounter with the patient tonight she is being transfused 1 unit of packed red blood cells and is tolerating it well. She denies any shortness of breath, diaphoresis, lightheadedness, chest pain, dizziness, or abdominal pain. She also denies any bright red rectal bleeding which is how she presented the last time she had a GI bleed. Patient does produce a small amount of urine daily. She denies any other symptoms at this time. Review of Systems Review of Systems: All systems reviewed & are unremarkable except as noted in HPI and below PMFSH Past Medical History Medical History Acute on chronic blood loss anemia Amputated toe of left foot Anemia of chronic disease Megaloblastic anemia AV fistula Left upper extremity Closed fracture of lateral portion of right tibial plateau (~2014) End stage renal disease on dialysis Dialysis days are Sunday, Sunday, and Sunday. She is on the transplant list at [facility]. Hiatal hernia Hyperlipidemia Hypertension Occult blood in stools Osteoarthritis of both knees Osteoporosis PAD (peripheral artery disease) With history of midfoot amputation Paroxysmal atrial fibrillation Pulmonary hypertension Echocardiogram August 2019: EF 65-70 %, indeterminate left ventricular diastolic function, mild biatrial enlargement, mild mitral valve regurgitation, moderate tricuspid regurgitation, mild pulmonary hypertension with RVSP of 39 Spinal stenosis at L4-L5 level High-grade central canal stenosis noted on MRI February 2017 Staphylococcal septicemia (~2013) Thoracic ascending aortic aneurysm 4.[address] scan from August 2019 Type 2 diabetes mellitus Hemoglobin A1c was 6.6 in July 2019. Surgical History Surgical History Amputation at midfoot 5th digit right foot History of arthroplasty of right ankle History of arthroscopy (~12/07/12) wrist History of bilateral cataract extraction History of colonoscopy (~12/02/15) History of knee replacement (~2015) right Presence of Watchman left atrial appendage closure device Family History Family History Father Hypertension Heart disease Mother Diabetes mellitus Hypertension Tobacco dependence Lung cancer Sibling Heart disease Social History Social History Social History: The patient is and lives in [place]. She is originally from [place]. 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 She has 2 daughters who live in [place]. She has 1 son who lives in [facility] but is currently visiting her. She designates her daughters as her surrogate decision makers. She is a lifelong nonsmoker. No alcohol or drug abuse. Primary care physician: Dr. David Coppola
[2020-03-23] MEDS: ACETAMINOPHEN 325 MG TABLET 650 MG PO (20:57)
[2020-03-24] VITALS (29 sets, daily range): BP systolic 78–155; BP diastolic 31–91; PULSE 61–92; RESP 14–26; TEMP 36.4–37.2; O2SAT 93–100
[2020-03-24 02:36] LABS: Basophils Percent Auto 0.5 % (0.2-1.2); Eosinophils Absolute Auto 0.1 K/mm3 (0-0.3); Eosinophils Percent Auto 1.9 % (0-4.4); Hematocrit 22.7 % (37.0-47.0); Hemoglobin 7.1 g/dL (12.0-15.0); Immature Granulocyte Absolute 0.02 K/mm3 (0.00-0.031); Immature Granulocyte Percent A 0.3 % (0-0.5); Lymphocytes Absolute Auto 1.74 K/mm3 (0.9-3.2); Lymphocytes Percent Auto 23.5 % (18.3-44.2); Mean Corpuscular HGB Conc 31.3 g/dl (32-36); Mean Corpuscular Hemoglobin 31.1 pg (26-34); Mean Corpuscular Volume 99.6 fl (80-100); Mean Platelet Volume 11.7 fl (7.4-10.4); Monocytes Absolute Auto 0.8 K/mm3 (0.1-0.6); Monocytes Percent Auto 11.2 % (2.6-8.5); Neutrophils Absolute Auto 4.6 K/mm3 (1.3-6.7); Neutrophils Percent Auto 62.6 % (45.5-73.1); Platelet Count Result 149 k/mm3 (150-375); Red Blood Count 2.28 M/mm3 (4.2-5.4); Red Cell Distribution Width 18.8 % (11.5-14.5); White Blood Count 7.4 K/mm3 (4.5-10.0)
[2020-03-24 02:50] LABS: Anion Gap 12 mmol/L (8-16); Blood Urea Nitrogen 90 mg/dL (7-17); Calcium 7.2 mg/dL (8.4-10.2); Carbon Dioxide 26 mmol/L (22-30); Chloride 92 mmol/L (98-107); Estimated Glomerular Filt Rate 8; Glucose 143 mg/dL (65-105); Potassium 4.8 mmol/L (3.4-5.0); Sodium 130 mmol/L (137-145)
[2020-03-24 07:56] LABS: Glucose Point of Care 149 (65-105)
[2020-03-24] MEDS: COLLAGENASE OINT 30 GM TUBE 1 APPLIC TOPICAL (08:17)
--- NOTE | 2020-03-24 08:37 | WPDGICN ---
Assessment and Plan Assessment and plan (1) Severe anemia: Code(s): D64.9 - Anemia, unspecified Status: Acute Assessment and Plan: Patient has anemia of chronic disease. There is an ongoing concern of GI blood loss. Patient indeed had a gastric ulcer early in 2019. Two follow-up endoscopies have confirmed this to be healed. A colonoscopy in December revealed only diverticular disease. And internal hemorrhoids were also noted. Patient presents now with recurrent anemia and dark stools. Plan is to Hemoccult stools to assess for consideration of ongoing GI blood loss although hemorrhoids certainly could contribute to this at this point we may need to consider hematology evaluation if endoscopy is negative. (2) ESRD (end stage renal disease) on dialysis: Code(s): N18.6 - End stage renal disease; Z99.2 - Dependence on renal dialysis Status: Chronic Assessment and Plan: Chronic kidney disease likely contributes to her anemia. continued Nephrology follow-up advised. (3) Atrial fibrillation: Qualifiers: Atrial fibrillation type: unspecified Qualified Code(s): I48.91 - Unspecified atrial fibrillation Code(s): I48.91 - Unspecified atrial fibrillation Status: Chronic Assessment and Plan: Because of recent ulcer and concern over blood loss anticoagulation should be held in this patient at this time. (4) Hypertension: Qualifiers: Hypertension type: unspecified Qualified Code(s): I10 - Essential (primary) hypertension Code(s): I10 - Essential (primary) hypertension Status: Chronic (5) Type 2 diabetes mellitus: Qualifiers: Diabetes mellitus terminal operations supervisor insulin use: without chcf use Diabetes mellitus complication status: without complication Qualified Code(s): E11.9 - Type 2 diabetes mellitus without complications Code(s): E11.9 - Type 2 diabetes mellitus without complications Status: Chronic GI Consult Note Consult date/time: 03/24/20 08:37 HPI: Shasta Obando is a 74 year old female I am asked to see because of anemia. Patient reports has a history of end-stage renal disease and receives dialysis. She has noticed a decline in hemoglobin on recent testing for this reason sent to the emergency room yesterday. She reports that her stools have been somewhat dark recently. She denies any obvious blood in her stools. Her recent history is significant for anemia in the spring colonoscopy an EGD were perform she had a gastric ulcer. Follow-up EGD in December and then again 1 month ago revealed healing of this ulcer. Colonoscopy revealed diverticulosis and hemorrhoids and was otherwise unremarkable. Because of ongoing anemia of small bowel capsule study was performed 1 month ago and found to be normal as well. Patient has done well aside from decline in hemoglobin noted on recent testing this week. Dark stools that were recently no ordered were not guaiaced yet. Patient denies any abdominal pain her weight appetite bowel movements otherwise have remained normal. Her family history is noncontributory. Past history is significant for anemia of chronic disease attributed to end-stage renal disease for which she receives dialysis. She has a history of atrial fibrillation for which she has a watchman device. Review of Systems Review of Systems: All systems reviewed & are unremarkable except as noted in HPI and below PMFSH Past Medical History Medical History Acute on chronic blood loss anemia Amputated toe of left foot Anemia of chronic disease Megaloblastic anemia AV fistula Left upper extremity Closed fracture of lateral portion of right tibial plateau (~2014) End stage renal disease on dialysis Dialysis days are Sunday, Sunday, and Sunday. She is on the transplant list at [place]. Hiatal hernia Hyperlipidemia Hypertension Occult blood in stools Ost
--- NOTE | 2020-03-24 08:58 | WPDANESEPPF ---
Anes - Initial Pre Proc Eval Procedure: Operation Date: 03/24/20 10:00 Proposed Procedures p Esophagogastroduodenoscopy - Roblse Starr MD Date/Time: 03/24/20 08:58 Surgeon: Ta Donovan MD Pre Op Diagnosis: anemia Patient Data Age: 74 Gender: F Height: 4 ft 9 in Weight: 59.2 kg Last Vital Signs Temp 98.9 F 03/24/20 05:55 Pulse 72 03/24/20 05:55 Resp 14 03/24/20 05:55 BP 149/39 H 03/24/20 06:08 Pulse Ox 98 03/24/20 05:55 Allergies Allergy/AdvReac Type Severity Reaction Status Date / Time cefazolin Allergy Mild nausea/dizz Verified 03/23/20 14:42 iness enalapril Allergy Unknown cough Verified 03/23/20 14:42 pioglitazone Allergy Unknown Unknown Verified 03/23/20 14:42 tramadol Allergy Unknown hallucinati Verified 03/23/20 14:42 ons gabapentin Allergy Hallucinati Verified 03/23/20 14:42 ng Home Medications Medication Instructions Recorded Confirmed Type cyanocobalamin (vitamin B-12) 500 mcg PO DAILY 06/12/19 03/23/20 History ergocalciferol (vitamin D2) 50,000 unit PO WEEKLY 12/19/19 03/23/20 History [Vitamin D2] pantoprazole 40 mg PO DAILY 12/19/19 03/23/20 History pen needle, diabetic 32 gauge x #100 each 02/09/20 03/23/20 Rx 1/5 Januvia 100 mg PO DAILY 02/20/20 03/23/20 History Santyl 1 applic TOPICAL DAILY 02/20/20 03/23/20 History acetaminophen [Acetaminophen Extra 1,000 mg PO Q6H PRN 02/20/20 03/23/20 History Strength] carvedilol 3.125 mg PO DAILY 02/20/20 03/23/20 History blood sugar diagnostic #500 each 03/11/20 03/23/20 Rx aspirin 81 mg PO DAILY 03/23/20 03/23/20 History Laboratory Tests 03/23/20 03/23/20 03/23/20 14:34 14:34 14:34 WBC 7.0 K/mm3 K/mm3 (4.5-10.0) RBC 1.71 M/mm3 L M/mm3 (4.2-5.4) Hgb 5.4 g/dL L* D g/dL (12.0-15.0) Hct 17.7 % L* % (37.0-47.0) MCV 103.5 fl H fl (80-100) MCH 31.6 pg pg (26-34) MCHC 30.5 g/dl L g/dl (32-36) RDW 17.5 % H % (11.5-14.5) Plt Count 172 k/mm3 k/mm3 (150-375) MPV 11.9 fl H fl (7.4-10.4) Immature Gran % (Auto) 0.1 % % (0-0.5) Neut % (Auto) 63.5 % % (45.5-73.1) Lymph % (Auto) 23.9 % % (18.3-44.2) Dukes % (Auto) 10.8 % H % (2.6-8.5) Eos % (Auto) 1.3 % % (0-4.4) Baso % (Auto) 0.4 % % (0.2-1.2) Lymph # (Auto) 1.66 K/mm3 K/mm3 (0.9-3.2) Dukes # (Auto) 0.8 K/mm3 H K/mm3 (0.1-0.6) Eos # (Auto) 0.1 K/mm3 K/mm3 (0-0.3) Baso # (Auto) 0.0 K/mm3 K/mm3 (0.0-0.1) Abs Immat Gran (auto) 0.01 K/mm3 K/mm3 (0.00-0.031) Absolute Neuts (auto) 4.4 K/mm3 K/mm3 (1.3-6.7) Absolute Nucleated RBC 0.0 K/mm3 K/mm3 (0.0-0.012) Nucleated RBC % 0.0 % % (0.0-0.2) PT 15.3 Seconds H Seconds (11.1-14.7) INR 1.2 APTT 34.3 SECONDS SECONDS (22.3-36.8) Sodium 131 mmol/L L mmol/L (137-145) Potassium 4.5 mmol/L mmol/L (3.4-5.0) Chloride 90 mmol/L L mmol/L (98-107) Carbon Dioxide 28 mmol/L mmol/L (22-30) Anion Gap 13 mmol/L mmol/L (8-16) BUN 80 mg/dL H D mg/dL (7-17) Creatinine 4.50 mg/dL H mg/dL (0.7-1.0) Estim Creat Clear Calc Not Reportable Estimated GFR 10 L (59 - ) Glucose 156 mg/dL H mg/dL (65-105) POC Capillary Glucose Calcium 7.4 mg/dL L mg/dL (8.4-10.2) Total Bilirubin 0.5 mg/dL mg/dL (0.2-1.3) AST 22 U/L U/L (14-36) ALT 20 U/L U/L (4-35) Alkaline Phosphatase 277 U/L H U/L (38-126) Total Protein 5.0 g/dL L g/dL (6.3-8.2) Albumin 3.3 g/dL L g/dL (3.5-5.1) Blood Type Antibody Screen Crossmatch 03/23/20 03/24/20 03/24/20 14:35 02:30 02:30 WBC 7.4 K/mm3 K/mm3
[2020-03-24] MEDS: SODIUM CHLORIDE 0.9% IV 500 ML 10 ML IV CONT (09:03)
[2020-03-24 09:08] LABS: Glucose Point of Care 156 (65-105)
[2020-03-24 10:10] LABS: Glucose Point of Care 143 (65-105)
--- NOTE | 2020-03-24 11:58 | PC.NURSE ---
Per dialysis nurse Eze, hold coreg until after treatment.
[2020-03-24 12:09] LABS: Glucose Point of Care 213 (65-105)
[2020-03-24 12:10] LABS: Glucose Point of Care 141 (65-105)
[2020-03-24] MEDS: ACETAMINOPHEN 325 MG TABLET 650 MG PO (12:35)
[2020-03-24] MEDS: SODIUM CHLORIDE 0.9% IV 1,000 ML 999 ML IV CONT (12:50)
[2020-03-24] MEDS: EPOETIN ALFA-EPBX 10,000 UNITS/ML VIAL 10000 UNITS IV PUSH (14:25)
[2020-03-24] MEDS: carvediloL 3.125 MG TABLET PO (17:33)
--- NOTE | 2020-03-24 17:39 | PM.CNNEP ---
Assessment and Plan Assessment and plan (1) ESRD (end stage renal disease) on dialysis: Code(s): N18.6 - End stage renal disease; Z99.2 - Dependence on renal dialysis Status: Chronic Assessment and Plan: The patient gets dialysis 3 times a week. She had today's dialysis as on schedule. Her end-stage renal disease is due to diabetes and high blood pressure. (2) Severe anemia: Code(s): D64.9 - Anemia, unspecified Status: Acute Assessment and Plan: Patient's hemoglobin dropped fairly quickly over the last 2 or 3 weeks. She has had several scopes done and also colonoscopies. In addition she had a capsule endoscopy. I talked with Dr. malcolm who saw the result which was negative. She does have black stools and her stool guaiacs have been positive in the past but it is still unclear where this is coming from. [facility] do not do enteroscopes anymore apparently. Will check an LDH to be sure she is not hemolyzing. (3) Occult blood in stools: Code(s): R19.5 - Other fecal abnormalities Status: Acute Assessment and Plan: Positive in February and January. This was ordered for this admission but is pending. (4) Type 2 diabetes mellitus: Qualifiers: Diabetes mellitus oysterman insulin use: without oysterman use Diabetes mellitus complication status: without complication Qualified Code(s): E11.9 - Type 2 diabetes mellitus without complications Code(s): E11.9 - Type 2 diabetes mellitus without complications Status: Chronic Assessment and Plan: On Accu-Cheks and sliding-scale insulin (5) Atrial fibrillation: Qualifiers: Atrial fibrillation type: unspecified Qualified Code(s): I48.91 - Unspecified atrial fibrillation Code(s): I48.91 - Unspecified atrial fibrillation Status: Chronic Assessment and Plan: she has a watch band device in. Thank Goodness she does not need anticoagulants. (6) Hypertension: Qualifiers: Hypertension type: unspecified Qualified Code(s): I10 - Essential (primary) hypertension Code(s): I10 - Essential (primary) hypertension Status: Chronic Assessment and Plan: Systolic running between 130 and 152. Continue current medications. History of Present Illness Reason for Consult Consult date: 03/24/20 Chief Complaint Chief complaint: anemia History of Present Illness Narrative: Shasta is a very pleasant 74-year-old lady who has end-stage renal disease on dialysis 3 times a week, history of calciphylaxis, foot ulcer, diabetes type 2, anemia of chronic kidney disease but also blood loss anemia, hyperlipidemia, hypertension, peripheral arterial disease, paroxysmal atrial fibrillation with a Watchman device, pulmonary hypertension, thoracic ascending aortic aneurysm. The patient came in the hospital because of low counts. On February 24 her hemoglobin was 9.4. Then on March 17 it was down to 7.2. When we found this out we rechecked it on the and hemoglobin had dropped to 5.8 so we sent her to the hospital. She is on a large amount of Epogen. Her reticulocyte count has been good and her iron is adequate. So she seems to be responding to the Epogen well but is just not keeping up with her blood loss. She says that she has had black stools for about the last 2 or 3 weeks but she did not think about mentioning it to us. She is not on any binders or iron pills that would cause her stools to be black. She has had Hemoccult-positive stools in the past. There positive in December and again in February. The patient came to the emergency room she was evaluated. She received some blood transfusions. Dr. malcolm saw the patient. EGD was done which was negative. On the of this month the patient had a colonoscopy which was negative. The patient had dialysis. She tolerated this well. Review of Systems Constitutional: Constitutional: Repor
[2020-03-24 17:53] LABS: Glucose Point of Care 104 (65-105)
--- NOTE | 2020-03-24 18:19 | PM.DS ---
DS: Admitting Diagnosis Admitting Diagnosis Admitting Diagnosis: anemia DS: Discharge Diagnosis Discharge Diagnosis (1) Upper GI bleed: Code(s): K92.2 - Gastrointestinal hemorrhage, unspecified Status: Acute Assessment and Plan: Upper GI bleed may be related to known peptic ulcer disease. Recent endoscopic evaluation last month was negative. The patient is being transfused 2 units of packed red blood cells at this time. We will monitor H&H transfuse as needed. Protonix IV. Check FOBT. Gastroenterology, Dr. gomez consultation (2) ESRD (end stage renal disease) on dialysis: Code(s): N18.6 - End stage renal disease; Z99.2 - Dependence on renal dialysis Status: Chronic Assessment and Plan: nephrology consultation for dialysis in a.m.. (3) Type 2 diabetes mellitus: Qualifiers: Diabetes mellitus intermediate accountant insulin use: without fpc use Diabetes mellitus complication status: without complication Qualified Code(s): E11.9 - Type 2 diabetes mellitus without complications Code(s): E11.9 - Type 2 diabetes mellitus without complications Status: Chronic Assessment and Plan: Accu-Cheks, sliding scale insulin coverage. Hypoglycemia protocol (4) Atrial fibrillation: Qualifiers: Atrial fibrillation type: unspecified Qualified Code(s): I48.91 - Unspecified atrial fibrillation Code(s): I48.91 - Unspecified atrial fibrillation Status: Chronic Assessment and Plan: status post Watchman procedure. Hold aspirin secondary to acute GI bleed. (5) Wound of foot: Code(s): S91.309A - Unspecified open wound, unspecified foot, initial encounter Status: Chronic Assessment and Plan: continue local wound care for small heel wound+ (6) Hypertension: Qualifiers: Hypertension type: unspecified Qualified Code(s): I10 - Essential (primary) hypertension Code(s): I10 - Essential (primary) hypertension Status: Chronic Assessment and Plan: stable. Monitor blood pressure. Continue Coreg DS: Summary Hospital Course Reason for hospitalization: Chief complaint: anemia Narrative: This is a pleasant 74 year old Diabetic female with ESRD on HD on // for the past 6 years who presented to the hospital today after being found to have a low hemoglobin of 5 on her labs that were drawn at Dialysis this past Sunday. The patient admits that she has had ongoing black stools for the past 10 days. During her last hospitalization last month she underwent EGD and colonoscopy which was negative for any source of bleeding but it was thought that she likely had an upper GI bleed and does have a history of peptic ulcer disease. She is known to be on aspirin daily but denies any blood thinners. She does not take any NSAIDS as this is what was thought to be the cause of Her renal failure. after being discharged this past month the patient did have capsule endoscopy performed which she states was unremarkable. the patient was evaluated emergency room today and found to have a hemoglobin of 5.4 and hematocrit of 17.7. On my encounter with the patient koby she is being transfused 1 unit of packed red blood cells and is tolerating it well. She denies any shortness of breath, diaphoresis, lightheadedness, chest pain, dizziness, or abdominal pain. She also denies any bright red rectal bleeding which is how she presented the last time she had a GI bleed. Patient does produce a small amount of urine daily. She denies any other symptoms at this time. Hospital Course: Upper GI bleed may be related to known peptic ulcer disease. Recent endoscopic evaluation last month was negative. The patient is being transfused 2 units of packed red blood cells at this time. We will monitor H&H transfuse as needed. Protonix IV. Check FOBT. Gastroenterology, Dr. gomez consultation patient was given 2 units of pack RBC her hemoglo
[2020-03-24 18:32] LABS: Lactate Dehydrogenase 298 U/L (313-618)
== END 2020-03-24 19:10 | disposition home or self-care (01) ==
LOC: ANHED 15:32 → ANH3MED 16:34
PROVIDERS: Emergency Medicine; Family Medicine; Internal Medicine Gastroenterology; Internal Medicine Nephrology; Admitting Provider Internal Medicine; Emergency Provider Emergency Medicine; PCP Family Medicine; Visit Provider Family Medicine
PROC: 0DJ08ZZ Inspection of Upper Intestinal Tract, Via Natural or Artificial Opening Endoscopic (ICD-10-PCS; CPT 43235; principal; 2020-03-24 10:00)
DX: K92.2 Gastrointestinal hemorrhage, unspecified (principal); D64.9 Anemia, unspecified; Z87.11 Personal history of peptic ulcer disease; S90.929A Unspecified superficial injury of unspecified foot, initial encounter; X58.XXXA Exposure to other specified factors, initial encounter; I12.0 Hypertensive chronic kidney disease with stage 5 chronic kidney disease or end stage renal disease; E11.22 Type 2 diabetes mellitus with diabetic chronic kidney disease; N18.6 End stage renal disease; Z99.2 Dependence on renal dialysis; I27.20 Pulmonary hypertension, unspecified; I48.0 Paroxysmal atrial fibrillation; Z79.01 Long term (current) use of anticoagulants; E11.51 Type 2 diabetes mellitus with diabetic peripheral angiopathy without gangrene; I71.2 Thoracic aortic aneurysm, without rupture; Z23 Encounter for immunization; E78.5 Hyperlipidemia, unspecified; K44.9 Diaphragmatic hernia without obstruction or gangrene; M17.0 Bilateral primary osteoarthritis of knee; M81.0 Age-related osteoporosis without current pathological fracture; M48.061 Spinal stenosis, lumbar region without neurogenic claudication; Z79.4 Long term (current) use of insulin
CPT/HCPCS: 43235; 36415; 36430; 80048; 80053; 83615; 85025; 85610; 85730; 86850; 86900; 86901; 86923; 90471; 90686; 96361; 96365; 96366; 96375; 99285; A9270; C9113; G0008; G0257; G0378; J7030; J7040; J7050; J7060; P9016; Q5106

== ENCOUNTER 2020-04-20 07:11 | Outpatient (RCR) | payer MEDICARE, MEDICAID, SELFPAY ==
[2020-04-20] VITALS (10 sets, daily range): BP systolic 113–126; BP diastolic 47–68; PULSE 61–76; RESP 14–16; TEMP 36.5–36.9; O2SAT 97–100
[2020-04-20 08:09] LABS: Hematocrit 22.5 % (37.0-47.0)
[2020-04-20 08:18] LABS: Hemoglobin 6.8 g/dL (12.0-15.0)
== END 2020-07-18 23:59 | disposition home or self-care (01) ==
LOC: ANHCPCTRAN 07:11
PROVIDERS: PCP Family Medicine; Visit Provider Internal Medicine Nephrology
DX: D64.9 Anemia, unspecified (principal)
CPT/HCPCS: 36415; 36430; 85014; 85018; 86850; 86900; 86901; 86923; J7050; P9016

== ENCOUNTER 2020-05-03 07:00 | Observation (INO) | payer MEDICARE, MEDICAID, SELFPAY ==
[2020-05-03] VITALS (32 sets, daily range): BP systolic 128–166; BP diastolic 45–110; PULSE 63–90; RESP 14–32; TEMP 36.5–37; O2SAT 96–98
--- NOTE | 2020-05-03 07:09 | ECG_ITS ---
Measurements Intervals Senath Rate: 65 P: ND: 0 QRS: 83 QRSD: 83 T: 58 QT: 390 QTc: 408 Interpretive Statements ATRIAL FIBRILLATION BASELINE ARTIFACT- I, II, V1, V5 ABNORMAL ECG Electronically Signed On 05-04-2020 11:40:32 CDT by Danny Soliz D.O.
--- NOTE | 2020-05-03 07:28 | ED.WEAKNESS ---
HPI - Weakness General Chief complaint: Weakness Stated complaint: Weakness Time Seen by Provider: 05/03/20 07:05 Source: patient Mode of arrival: ambulatory Limitations: no limitations History of Present Illness HPI Narrative: Patient is a 75-year-old female complaining of generalized weakness and black stools that started yesterday. Patient states that she was about to get dialysis but felt very weak so the dialysis center sent her here. Patient states that she has a history of anemia due to ulcer in her stomach, recently diagnosed, and has had a history of blood transfusions in the past due to this. Patient states that she had blood transfusion approximately 2 weeks ago, was told to hold her aspirin, but restarted her aspirin approximately 3 days ago. Related Data Home Medications Medication Instructions Recorded Confirmed cyanocobalamin (vitamin B-12) 500 mcg PO DAILY 06/12/19 03/29/20 ergocalciferol (vitamin D2) 50,000 unit PO WEEKLY 12/19/19 03/29/20 [Vitamin D2] Januvia 100 mg PO DAILY 02/20/20 03/29/20 Santyl 1 applic TOPICAL DAILY 02/20/20 03/29/20 acetaminophen [Acetaminophen Extra 1,000 mg PO Q6H PRN 02/20/20 03/29/20 Strength] carvedilol 3.125 mg PO DAILY 02/20/20 03/29/20 biotin 10,000 mcg capsule 10,000 mcg PO .QD cap 03/29/20 03/29/20 cinacalcet 30 mg tablet 30 mg PO DAILY 03/29/20 03/29/20 liraglutide 0.6 mg/0.1 mL (18 mg/3 See Rx Instructions SUB-Q .COMPLEX 03/29/20 03/29/20 mL) subcutaneous pen injector losartan 50 mg tablet 50 mg PO DAILY 03/29/20 03/29/20 sevelamer HCl 800 mg tablet 800 mg PO TID 03/29/20 03/29/20 pantoprazole 40 mg tablet,delayed 40 mg PO DAILY tablet 05/03/20 release Allergies Allergy/AdvReac Type Severity Reaction Status Date / Time cefazolin Allergy Mild nausea/dizz Verified 03/29/20 15:17 iness enalapril Allergy Unknown cough Verified 03/29/20 15:17 pioglitazone Allergy Unknown Unknown Verified 03/29/20 15:17 tramadol Allergy Unknown hallucinati Verified 03/29/20 15:17 ons gabapentin Allergy Hallucinati Verified 03/29/20 15:17 ng Review of Systems Review of Systems: All systems reviewed & are unremarkable except as noted in HPI and below Constitutional: Constitutional: Denies body ache(s), Denies chills, Denies excessive sweating, Denies fatigue, Denies fever(s), Denies headache(s), Denies lethargy, Denies malaise and Denies weight loss Eyes: Eyes: Denies blurry vision, Denies change in vision and Denies loss of vision ENT: Denies dizziness, Denies ear discharge, Denies headache(s), Denies lip swelling, Denies epistaxis, Denies nasal congestion, Denies neck pain, Denies throat swelling and Denies tongue swelling Cardiovascular: Cardiovascular: Denies chest pain, Denies chest pain at rest, Denies chest pain with activity, Denies diaphoresis, Denies rapid heart rate, Denies edema, Denies irregular heart rhythm, Denies lightheadedness, Denies palpitations, Denies dyspnea and Denies dyspnea on exertion Respiratory: Respiratory: Denies chest congestion, Denies cough, Denies hemoptysis, Denies dyspnea and Denies dyspnea on exertion Gastrointestinal: Gastrointestinal: Denies abdominal pain, Denies melena, Denies hematochezia, Denies diarrhea, Denies nausea, Denies vomiting and Denies hematemesis Musculoskeletal: Musculoskeletal: Denies abnormal gait, Denies deformity, Denies joint swelling, Denies limited range of motion, Denies neck pain and Denies numbness Neurologic: Denies Abnormal speech present, Denies abnormal gait, Denies confusion, Denies dizziness, Denies headache(s), Denies focal weakness, Denies loss of vision, Denies numbness, Denies Other visual disturbances and Denies Sensory deficit (Neuro) Psychiatric: Psychiatric: Denies confusion, Denies depression, Denies auditory hallucinations, Denies homicidal ideation and Denies suicidal ideation Endocrine: Endocrine: Denies cold intolerance, Denies excessive sweating, Denies fatigue, Denies heat intole
[2020-05-03 07:35] LABS: Basophils Percent Auto 0.2 % (0.2-1.2); Eosinophils Absolute Auto 0.1 K/mm3 (0-0.3); Eosinophils Percent Auto 0.7 % (0-4.4); Immature Granulocyte Percent A 0.8 % (0-0.5); Lymphocytes Percent Auto 9.6 % (18.3-44.2); Mean Corpuscular HGB Conc 29.1 g/dl (32-36); Mean Corpuscular Hemoglobin 32.8 pg (26-34); Mean Corpuscular Volume 112.6 fl (80-100); Mean Platelet Volume 11.6 fl (7.4-10.4); Monocytes Absolute Auto 0.8 K/mm3 (0.1-0.6); Monocytes Percent Auto 6.7 % (2.6-8.5); Neutrophils Absolute Auto 10.2 K/mm3 (1.3-6.7); Platelet Count Result 210 k/mm3 (150-375); Red Blood Count 1.74 M/mm3 (4.2-5.4); Red Cell Distribution Width 21.3 % (11.5-14.5); White Blood Count 12.5 K/mm3 (4.5-10.0)
[2020-05-03 07:44] LABS: INR 1.2; Prothrombin Time 14.6 Seconds (11.1-14.7)
[2020-05-03 07:44] LABS: Hematocrit 19.6 % (37.0-47.0); Hemoglobin 5.7 g/dL (12.0-15.0)
[2020-05-03 07:49] LABS: Anisocytosis 2+ (NORMAL); Hypochromasia 1+ (NORMAL); Platelet Estimate Adequate (Adequate); Poikilocytosis 1+ (NORMAL)
[2020-05-03 07:50] LABS: Basophilic Stippling 1+ (NORMAL)
[2020-05-03 07:59] LABS: Alanine Aminotransferase 22 U/L (4-35); Albumin Level 3.7 g/dL (3.5-5.1); Alkaline Phosphatase 312 U/L (38-126); Anion Gap 12 mmol/L (8-16); Aspartate Amino Transferase 29 U/L (14-36); Bilirubin,Total 0.4 mg/dL (0.2-1.3); Blood Urea Nitrogen 114 mg/dL (7-17); Calcium 8.1 mg/dL (8.4-10.2); Carbon Dioxide 27 mmol/L (22-30); Chloride 96 mmol/L (98-107); Estimated Glomerular Filt Rate 6; Glucose 99 mg/dL (65-105); Potassium 6.2 mmol/L (3.4-5.0); Sodium 135 mmol/L (137-145)
[2020-05-03] MEDS: PANTOPRAZOLE SODIUM IV 40 MG VIAL 80 MG IV PUSH (08:11)
[2020-05-03] MEDS: SODIUM CHLORIDE 0.9% IV 250 ML 999 ML IV CONT (08:13)
[2020-05-03] MEDS: diphenhydrAMINE HCl INJ 50 MG/ML VIAL 12.5 MG IV PUSH (10:27)
[2020-05-03] MEDS: ACETAMINOPHEN 325 MG TABLET 650 MG PO (10:28)
[2020-05-03] MEDS: SODIUM CHLORIDE 0.9% IV 250 ML 30 ML (10:40)
--- NOTE | 2020-05-03 12:05 | WPDGICN ---
Assessment and Plan Assessment and plan (1) Anemia: Qualifiers: Anemia type: unspecified type Qualified Code(s): D64.9 - Anemia, unspecified Code(s): D64.9 - Anemia, unspecified Status: Acute Assessment and Plan: Patient has chronic anemia. Extensive GI workup has not been fruitful. Patient does have a distant history of gastric ulcer a year ago. Agree with empiric treatment of proton pump inhibitor. Because anemia is macrocytic folate B12 levels will be obtained as well. His repeat iron studies. I suspect she has chronic anemia related end-stage renal disease. Occult blood loss is more difficult to define. May be related to hemorrhoids. No other lesions have been identified at this time. Will consider repeat GI endoscopy if stool Hemoccult returns positive but she has had multiple of these exams throughout the year in perhaps hematology consult would be beneficial at this time. (2) ESRD on dialysis: Code(s): N18.6 - End stage renal disease; Z99.2 - Dependence on renal dialysis Status: Acute (3) Occult blood in stools: Code(s): R19.5 - Other fecal abnormalities Status: Acute GI Consult Note Consult date/time: 05/03/20 12:05 HPI: Shasta Obando is a 75 year old female I am asked to see at the request of the emergency room. Patient has a history of end-stage renal disease on dialysis. Is chronically anemic. She presented to dialysis and was found to have anemia once again on Sunday. Because of weakness she subsequently presented the emergency room. She gives a history of darker than usual stools over the last 1 week. I am told that she may have had Hemoccult-positive stools in the ER but have difficulty confirming this. Patient denies any obvious bleeding. Her past history is significant a year ago she had a gastric ulcer. Since that time in December she underwent EGD which revealed the ulcer had healed, a colonoscopy December 21 revealed diverticulosis and hemorrhoids but no evidence of active bleeding. Because of ongoing anemia she has had a follow-up EGD 02/23/2020 which was unremarkable aside from a small hiatal hernia. GI small-bowel capsule study on March 09 was likewise unremarkable. Follow-up EGD 03/24/2020 was also unremarkable. At the present time patient is admitted because of chronic anemia. Patient will be evaluated and possibly transfused at this time. Review of Systems Review of Systems: All systems reviewed & are unremarkable except as noted in HPI and below PMFSH Past Medical History Medical History Acute on chronic blood loss anemia Amputated toe of left foot Anemia of chronic disease Megaloblastic anemia AV fistula Left upper extremity Closed fracture of lateral portion of right tibial plateau (~2014) End stage renal disease on dialysis Dialysis days are Sunday, Sunday, and Sunday. She is on the transplant list at [place]. Hiatal hernia Hyperlipidemia Hypertension Occult blood in stools Osteoarthritis of both knees Osteoporosis PAD (peripheral artery disease) With history of midfoot amputation Paroxysmal atrial fibrillation Pulmonary hypertension Echocardiogram August 2019: EF 65-70 %, indeterminate left ventricular diastolic function, mild biatrial enlargement, mild mitral valve regurgitation, moderate tricuspid regurgitation, mild pulmonary hypertension with RVSP of 39 Spinal stenosis at L4-L5 level High-grade central canal stenosis noted on MRI February 2017 Staphylococcal septicemia (~2013) Thoracic ascending aortic aneurysm 4.[address] scan from August 2019 Type 2 diabetes mellitus Hemoglobin A1c was 6.6 in July 2019. Surgical History Surgical History Amputation at midfoot 5th digit right foot History of arthroplasty of right ankle History of arthroscopy (~12/07/12) wrist History of bilater
[2020-05-03 12:22] LABS: Immature Reticulocyte Fraction 34.4 % (3.0-15.9); Reticulocyte Hemoglobin Conten 31.4 pg (28.2-35.7); Reticulocyte Percent 12.19 % (0.7-4.3); Reticulocytes Absolute 0.21 B/L (32.2-175.7)
[2020-05-03 13:03] LABS: Iron 18 ug/dL (37-170)
[2020-05-03 13:13] LABS: Percent Iron Saturation 5 % (20-50)
--- NOTE | 2020-05-03 13:55 | PM.IMHP ---
H&P: HPI History of Present Illness Date/Time: 05/03/20 13:55 Chief complaint: gi bleed,anemia Narrative: Shasta Obando is a 75 year old female Who has a history of having end-stage renal disease. She has dialysis on Sunday. She is seen Dr. Suarez in the past. She has been on high doses of Epogen in the past. It usually controls her anemia. However the patient recently went back on aspirin. The patient stated that she has been having black tarry stools for about 5 or 6 days now. She stated that she felt fine and went shopping on Sunday but then Sunday she just felt worn out. So the patient came into the emergency room today to be evaluated for her dark tarry stools and her weakness. Patient was going to get dialysis but felt very weak so the dialysis center to the emergency room here. She does have a history of having a stomach ulcer in the past. She had her last blood transfusion approximately 2 weeks ago. Patient's hemoglobin was noted to be 5.7. She has been around 7-8.6 with her hemoglobin in the past. She has been as low as 4.4 in the past. Potassium 6.2. Creatinine 6.7. GFR 6. The patient was taken directly to hemodialysis from the emergency room. When I saw her in dialysis the patient was slightly short of breath and complaining of weakness. Dr. Taylor has been consulted for Nephrology and Dr. malcolm has been consulted for GI bleed and the melana. patient has 2 units of packed red blood cells ordered and she already has 1 unit infused. Patient is being admitted to IMU is observation on the date of service of 05/03/2020 Review of Systems Review of Systems: All systems reviewed & are unremarkable except as noted in HPI and below Constitutional: Constitutional: Reports as per HPI and Reports no additional constitutional complaints Eyes: Eyes: Reports as per HPI and Reports no additional eye complaints ENT: Reports system reviewed and no additional complaints, except as documented and Reports Normal hearing present Cardiovascular: Cardiovascular: Reports no additional cardiovascular complaints Respiratory: Respiratory: Reports no additional respiratory complaints and Reports no additional respiratory complaints Gastrointestinal: Gastrointestinal: Reports as per HPI and Reports no additional gastrointestinal complaints Musculoskeletal: Musculoskeletal: Reports no additional musculoskeletal complaints Integumentary/Breasts: Skin/Breast: Reports system reviewed and no additional complaints, except as docu and Reports as per HPI Neurologic: Reports system reviewed and no additional complaints, except as documented, Reports as per HPI and Reports Normal hearing present Psychiatric: Psychiatric: Reports no additional psychiatric complaints and Reports as per HPI Endocrine: Endocrine: Reports no additional endocrine complaints Hematologic/Lymphatic: Hematologic/Lymphatic: Reports no additional hematologic/lymphatic complaints Allergic/Immunologic: Allergic/Immunologic: Reports no additional allergic/immunologic complaints [facility] Past Medical History Medical History Acute on chronic blood loss anemia Amputated toe of left foot Anemia of chronic disease Megaloblastic anemia AV fistula Left upper extremity Closed fracture of lateral portion of right tibial plateau (~2014) End stage renal disease on dialysis Dialysis days are Sunday, Sunday, and Sunday. She is on the transplant list at [place]. Hiatal hernia Hyperlipidemia Hypertension Occult blood in stools Osteoarthritis of both knees Osteoporosis PAD (peripheral artery disease) With history of midfoot amputation Paroxysmal atrial fibrillation Pulmonary hypertension Echocardiogram August 2019: EF 65-70 %, indeterminate left ventricular diastolic function, mild biatrial enlargement, mild mitral valve regurgitation, moderate tricuspid regurgitation, mild pulmonary hypertension
[2020-05-03 14:14] LABS: Folic Acid > 20.0 ng/mL (2.76->20); Vitamin B12 > 1000.0 pg/mL (239-931)
--- NOTE | 2020-05-03 15:26 | PM.PNNEP ---
Progress Note: A&P Assessment and Plan (1) End stage renal disease: Code(s): N18.6 - End stage renal disease Status: Chronic Assessment and Plan: HD today and continue M/W/F dialysis schedule FULL CONSULT to follow Subjective Date/time seen: 05/03/20 15:26 Tolerating dialysis at the time of my visit (seen on HD at 3:10PM); getting PRBC transfusion with dialysis as well; no acute distress voiced. Objective Data Vital Signs Vital Signs: Vital Signs Temp Pulse Resp BP Pulse Ox 05/03/20 15:22 36.6 C 77 24 H 146/67 H 05/03/20 15:15 80 150/56 H 05/03/20 15:00 79 139/61 05/03/20 14:55 36.6 C 82 24 H 146/57 H 05/03/20 14:45 73 135/56 L 05/03/20 14:40 36.5 C 76 24 H 142/64 H 05/03/20 14:30 143/71 H 05/03/20 14:15 76 142/62 H 05/03/20 14:00 81 137/57 L 05/03/20 13:45 74 141/65 H 05/03/20 13:31 81 135/52 L 05/03/20 13:10 36.5 C 79 32 H 142/66 H 05/03/20 12:55 68 16 166/67 H 97 05/03/20 11:40 36.6 C 70 20 128/80 97 05/03/20 10:54 36.5 C 70 22 H 157/74 H 97 05/03/20 10:39 36.5 C 75 22 H 158/57 H 97 05/03/20 10:00 69 22 H 128/45 L 96 05/03/20 09:00 63 20 153/67 H 98 05/03/20 08:10 71 22 H 161/73 H 98 05/03/20 07:00 36.8 C 74 14 144/52 H Intake/Output Intake/Output: Intake & Output 04/30/20 05/01/20 05/02/20 05/03/20 23:59 23:59 23:59 23:59 Intake Total 1095 Balance 1095 Meds/Results Medications: Active Medications Generic Name Dose Route Start Last Admin Trade Name Freq PRN Reason Stop Dose Admin Collagenase 1 applic 05/03/20 09:00 Collagenase Oint 30 Gm Tube TOPICAL QAM THERESE Dextrose 12.5 gm 05/03/20 14:03 Dextrose 50% 25 Gm/50 Ml Syringe IV PUSH PRN PRN Hypoglycemia Protocol Epoetin Son-epbx 20,000 units 05/03/20 19:49 Epoetin Son-Epbx 10,000 Units/Ml Vial IV PUSH 05/03/20 19:50 ONCE ONE Glucagon 1 mg 05/03/20 14:03 Glucagon For Inj 1 Mg Vial IM PRN PRN Hypoglycemia Protocol Glucose 15 gm 05/03/20 14:03 Glucose Oral Gel 15 Gm Of Glucse In 37.5 Gm Tube PO PRN PRN Hypoglycemia Protocol Albumin Human 50 mls @ 999 mls/hr 05/03/20 10:49 Albutein IVPB 06/02/20 10:50 Q10M PRN HYPOTENSION Dextrose 1,000 mls @ 100 mls/hr 05/03/20 14:03 Dextrose 5% 1,000 Ml IVPB PRN PRN Hypoglycemia Protocol Insulin Aspart 2 - 5 units 05/03/20 17:00 Insulin Aspart (*Bkc) 100 Units/Ml SUB-Q TIDWM [facility] Protocol Pantoprazole Sodium 40 mg 05/03/20 21:00 Pantoprazole Sodium Iv 40 Mg Vial IV PUSH Q12HR [facility] Labs Labs: Laboratory Tests 05/03/20 07:24 05/03/20 07:24 Quality Patient seen and evaluated on hemodialysis treatment ([id number]).
[2020-05-03] MEDS: EPOETIN ALFA-EPBX 10,000 UNITS/ML VIAL 20000 UNITS IV PUSH (15:51)
[2020-05-03] MEDS: COLLAGENASE OINT 30 GM TUBE 1 APPLIC TOPICAL (17:00)
--- NOTE | 2020-05-03 17:10 | PC.NURSE ---
This patient, Shasta Obando, was admitted to IMU Room 206-02 at 1315 on 05/03/2020. Patient/family oriented to hospital policies and general routines including ID bracelet, bed and alarms, visiting hours, pain management, procedures, bathroom and other care routines, personal items, smoking policy, room service/diet, and visiting hours. Information on how to activate the Rapid Response Team has been discussed. Patient/Family are encouraged to report perceived risks to care and to ask questions if they do not understand what they are told or what they should do.
[2020-05-03 18:01] LABS: Hematocrit 27.5 % (37.0-47.0); Hemoglobin 8.9 g/dL (12.0-15.0)
[2020-05-03] MEDS: SEVELAMER CARBONATE 800 MG TABLET PO (19:34)
[2020-05-03 19:38] LABS: Glucose Point of Care 132 (65-105)
[2020-05-03] MEDS: PANTOPRAZOLE SODIUM IV 40 MG VIAL IV PUSH (20:38)
[2020-05-04] VITALS (9 sets, daily range): BP systolic 115–151; BP diastolic 52–68; PULSE 68–93; RESP 16–20; TEMP 35.9–36.9; O2SAT 90–94
[2020-05-04 05:39] LABS: Basophils Percent Auto 0.2 % (0.2-1.2); Eosinophils Percent Auto 0.3 % (0-4.4); Hematocrit 27.6 % (37.0-47.0); Hemoglobin 8.6 g/dL (12.0-15.0); Immature Granulocyte Absolute 0.03 K/mm3 (0.00-0.031); Immature Granulocyte Percent A 0.3 % (0-0.5); Lymphocytes Absolute Auto 0.93 K/mm3 (0.9-3.2); Lymphocytes Percent Auto 10.2 % (18.3-44.2); Mean Corpuscular HGB Conc 31.2 g/dl (32-36); Mean Corpuscular Hemoglobin 32.2 pg (26-34); Mean Corpuscular Volume 103.4 fl (80-100); Mean Platelet Volume 11.9 fl (7.4-10.4); Monocytes Absolute Auto 0.8 K/mm3 (0.1-0.6); Monocytes Percent Auto 8.8 % (2.6-8.5); Neutrophils Absolute Auto 7.3 K/mm3 (1.3-6.7); Neutrophils Percent Auto 80.2 % (45.5-73.1); Platelet Count Result 177 k/mm3 (150-375); Red Blood Count 2.67 M/mm3 (4.2-5.4); Red Cell Distribution Width 20.9 % (11.5-14.5); White Blood Count 9.1 K/mm3 (4.5-10.0)
[2020-05-04 05:43] LABS: Lactic Acid Reflex 0.7 mmol/L (0.7-2.1)
[2020-05-04 05:57] LABS: Alanine Aminotransferase 19 U/L (4-35); Albumin Level 3.3 g/dL (3.5-5.1); Alkaline Phosphatase 281 U/L (38-126); Anion Gap 8 mmol/L (8-16); Aspartate Amino Transferase 26 U/L (14-36); Bilirubin,Total 0.8 mg/dL (0.2-1.3); Blood Urea Nitrogen 37 mg/dL (7-17); Calcium 8.7 mg/dL (8.4-10.2); Carbon Dioxide 32 mmol/L (22-30); Chloride 96 mmol/L (98-107); Estimated Glomerular Filt Rate 13; Glucose 115 mg/dL (65-105); Magnesium 2.6 mg/dL (1.6-2.3); Phosphorus 4.4 mg/dL (2.5-4.5); Potassium 3.9 mmol/L (3.4-5.0); Sodium 136 mmol/L (137-145)
[2020-05-04 06:18] LABS: Hemoglobin A1C 4.7 % (<5.7)
[2020-05-04 06:25] LABS: Thyroid Stimulating Hormone Reflex 0.269 uIU/mL (0.465-4.68)
[2020-05-04 07:53] LABS: Glucose Point of Care 119 (65-105)
[2020-05-04] MEDS: SEVELAMER CARBONATE 800 MG TABLET PO (08:25)
[2020-05-04] MEDS: CINACALCET 30 MG TABLET PO (08:25)
[2020-05-04] MEDS: carvediloL 3.125 MG TABLET PO (08:25)
[2020-05-04] MEDS: PANTOPRAZOLE SODIUM IV 40 MG VIAL IV PUSH (08:26)
[2020-05-04] MEDS: LOSARTAN POTASSIUM 50 MG TABLET PO (08:26)
[2020-05-04] MEDS: CYANOCOBALAMIN 500 MCG TABLET PO (08:26)
[2020-05-04 09:18] LABS: Free T4 Free Thyroxine Reflex 0.96 ng/dL (0.78-2.19)
[2020-05-04 10:14] LABS: Total Triiodothyronine (T3) 0.68 NG/ML (0.97-1.69)
--- NOTE | 2020-05-04 11:26 | PM.CNNEP ---
Assessment and Plan Assessment and plan (1) End stage renal disease: Code(s): N18.6 - End stage renal disease Status: Chronic Assessment and Plan: HD yesterday and continue M/W/F schedule follow electrolytes, volume status, and clearance (2) Severe anemia: Code(s): D64.9 - Anemia, unspecified Status: Acute Assessment and Plan: s/p PRBC transfusion follow H/H GI following Epogen with HD venofer with HD as well (3) Hypertension: Qualifiers: Hypertension type: unspecified Qualified Code(s): I10 - Essential (primary) hypertension Code(s): I10 - Essential (primary) hypertension Status: Chronic Assessment and Plan: reasonable control folloe hemodynamics (4) Wound of foot: Code(s): S91.309A - Unspecified open wound, unspecified foot, initial encounter Status: Chronic Assessment and Plan: local wound care (5) Type 2 diabetes mellitus: Qualifiers: Diabetes mellitus terminal operations manager insulin use: without care home use Diabetes mellitus complication status: without complication Qualified Code(s): E11.9 - Type 2 diabetes mellitus without complications Code(s): E11.9 - Type 2 diabetes mellitus without complications Status: Chronic Assessment and Plan: follow accuchecks on SSI Will continue to follow. History of Present Illness Reason for Consult Consult date: 05/04/20 Reason for consult: end stage renal disease Chief Complaint Chief complaint: gi bleed,anemia History of Present Illness Narrative: The patient is a 75 year old female with a past medical history as outlined below who presented to [facility] ER with black tarry stools. The patient states that she was recently re-initiated on aspirin therapy and since that time, she has noted black tarry stools for the last 5-7 days. Initially, she had been doing reasonably well despite this symptom but then by Sunday of last week she felt quite fatigued and worn out. As she has a known history of bleeding in the past and the fact that she had this symptom even previously and was told to go to the ER if she had a change in symptoms. Initially, her plan was to go to dialysis yesterday as scheduled for her normal dialysis treatment because of the above symptoms and worsening fatigue she decided to come the ER instead. Workup and evaluation emergency room demonstrated the patient to be hemodynamically stable but routine blood test demonstrated labs consistent with her known history of end-stage renal disease associated with hyperkalemia and a hemoglobin that was noted to be 5.7. She was typed and crossed for packed red blood cells and was started on a packed red blood cell transfusion with consultation with Gastroenterology and subsequent admission to the hospital for dialysis given her hyperkalemia. Since admission, she is received 2 units of packed red blood cells and does appear to be feeling somewhat better at this time. She did receive dialysis yesterday for fluid removal, correction of her electrolyte abnormalities, as well as to facilitate the packed red blood cell transfusion and she tolerated all these interventions fairly well. Renal consultation was requested due to her end-stage renal disease. The patient normally dialyzes on a Sunday, Sunday, Sunday dialysis schedule at [facility] under the care of Dr. Jacob Suarez. As already mentioned, she received dialysis yesterday and tolerated the procedure reasonably well. The patient is usually compliant with her dialysis treatments and aside from her issues with regard to anemia in the last few weeks, she has been doing reasonably well. Currently, at the time my visit, she appears to be in no acute distress. Review of Systems Review of Systems: Narrative: As per HPI. [facility] Past Medical History Medical History Acute on
[2020-05-04 11:41] LABS: Glucose Point of Care 172 (65-105)
--- NOTE | 2020-05-04 11:55 | WPDGIPROGNO ---
Progress Note: A&P Additional Plan Patient alert more comfortable today. Received transfusion yesterday. No active bleeding described. Physical exam reveals patient to have significant anxiety. HEENT exam she is anicteric. Lungs are clear. Heart without murmur. Abdomen bowel sounds present soft nontender with no organomegaly. Labs reveal hemoglobin 8.6 hematocrit 27, MCV 103 after transfusion. Stool was Hemoccult positive. Impression 1. Chronic anemia. Patient has baseline anemia attributed to chronic kidney disease. She consistently has Hemoccult-positive stools. Extensive GI workup has revealed only internal hemorrhoids to account for occult blood in stool. She has a distant history of gastric ulcer a year ago. At least 3 follow-up EGDs performed since then have revealed no recurrent ulceration. Small bowel capsule study per formed recently likewise was unremarkable. 2. End-stage renal disease on dialysis. likely had his baseline anemia on this basis. 3. Occult blood in stool. Workup to date suggests this may be from internal hemorrhoids. This is a chronic finding however. 4. Anxiety. Plan to repeat GI endoscopy including colonoscopy an EGD because of significant concern over GI blood loss. If this is negative would advise hematology evaluation. Subjective Date/time seen: 05/04/20 11:55 Objective Data Vital Signs Vital Signs: Vital Signs - 24 hr 05/03/20 12:55 05/03/20 13:10 05/03/20 13:31 Temperature 97.7 F Pulse Rate 68 79 81 Respiratory Rate 16 32 H Blood Pressure 166/67 H 142/66 H 135/52 L Pulse Oximetry 97 05/03/20 13:45 05/03/20 14:00 05/03/20 14:15 Temperature Pulse Rate 74 81 76 Respiratory Rate Blood Pressure 141/65 H 137/57 L 142/62 H Pulse Oximetry 05/03/20 14:30 05/03/20 14:40 05/03/20 14:45 Temperature 97.7 F Pulse Rate 76 73 Respiratory Rate 24 H Blood Pressure 143/71 H 142/64 H 135/56 L Pulse Oximetry 05/03/20 14:55 05/03/20 15:00 05/03/20 15:15 Temperature 97.8 F Pulse Rate 82 79 80 Respiratory Rate 24 H Blood Pressure 146/57 H 139/61 150/56 H Pulse Oximetry 05/03/20 15:22 05/03/20 15:30 05/03/20 15:45 Temperature 97.8 F Pulse Rate 77 76 81 Respiratory Rate 24 H Blood Pressure 146/67 H 152/62 H 143/67 H Pulse Oximetry 05/03/20 16:00 05/03/20 16:15 05/03/20 16:30 Temperature Pulse Rate 78 81 81 Respiratory Rate Blood Pressure 150/62 H 149/68 H 142/66 H Pulse Oximetry 05/03/20 16:45 05/03/20 17:01 05/03/20 17:10 Temperature 98 F Pulse Rate 80 76 78 Respiratory Rate 20 Blood Pressure 146/69 H 148/66 H 158/65 H Pulse Oximetry 05/03/20 18:00 05/03/20 20:00 05/03/20 22:00 Temperature 98.6 F Pulse Rate 84 87 83 Respiratory Rate 16 Blood Pressure 144/110 H Pulse Oximetry 97 05/04/20 00:00 05/04/20 02:00 05/04/20 04:00 Temperature 98.4 F 97.6 F Pulse Rate 86 91 80 Respiratory Rate 18 16 Blood Pressure 147/56 H 148/56 H Pulse Oximetry 94 91 05/04/20 06:00 05/04/20 08:00 05/04/20 08:21 Temperature 97.8 F Pulse Rate 77 77 88 Respiratory Rate 20 Blood Pressure 151/68 H Pulse Oximetry 90 05/04/20 08:25 Temperature Pulse Rate 77 Respiratory Rate Blood Pressure Pulse Oximetry Intake/Output Intake/Output: Intake & Output 05/01/20 05/02/20 05/03/20 05/04/20 23:59 23:59 23:59 23:59 Intake Total 1095 440 Output Total 1999 Balance -903 388 Meds/Results Medications: Active Medications Generic Name Dose Route Start Last Admin Trade Name Freq PRN Reason Stop Dose Admin Acetaminophen 1,000 mg 05/03/20 17:31 Acetaminophen 500 Mg Tablet PO Q6H PRN PAIN RATED 1-3 Carvedilol 3.125 mg 05/04/20 09:00 05/04/20 08:25 Carvedilol 3.125 Mg Tablet PO 3.125 mg DAILY THERESE Administration Cinacalcet 30 mg 05/04/20 09:00 05/04/20 08:25 Cinacalcet 30 Mg Tablet PO 30 mg DAILY THERESE Administration
--- NOTE | 2020-05-04 15:25 | PC.NURSE ---
pt does not want to have EGC/colonoscopy tomorrow- verbalized she is wanting to go home today. Dr. Starr notified that pt does not want procedure tomorrow- Dr. Tan called and notified ;
--- NOTE | 2020-05-04 15:50 | PM.DS ---
DS: Admitting Diagnosis Admitting Diagnosis Admitting Diagnosis: gi bleed,anemia DS: Discharge Diagnosis Discharge Diagnosis (1) Anemia: Qualifiers: Anemia type: unspecified type Qualified Code(s): D64.9 - Anemia, unspecified Code(s): D64.9 - Anemia, unspecified Status: Acute Assessment and Plan: the patient had been on high doses of Epogen and this was maintained by Nephrology. The patient stated that she recently started aspirin and developed dark tar stools. Patient has 2 units of packed red blood cells ordered and has received [address] malcolm has been consulted. Nephrology has been consulted as well. Patient has acute on chronic anemia. I will hold her aspirin for today. her hemoglobin noted to be 5.7. With her last 1 being on 04/20/2020 and 6.8. Her hemoglobin Has been up to 8.6 in the past. patient with chronic anemia presented emergency department with hemoglobin of 5.7 patient was given 2 units of pack RBC and today her hemoglobin is 8.6 patient was seen by GI and recommended EGD and colonoscopy to further evaluate, however patient refusing the procedure is she has had several EGD and colonoscopy as well as capsule endoscopy without any diagnosis, patient states if she notices any bleeding severe to the hospital and may have the procedures to further evaluate, patient was seen by Hematology recommending Venofer 200 mg with each dialysis I have communicated this with her program planner. patient will follow-up with aids social worker in 4 weeks, and a GI as scheduled. (2) ESRD on dialysis: Code(s): N18.6 - End stage renal disease; Z99.2 - Dependence on renal dialysis Status: Acute Assessment and Plan: Nephrology has been consulted. Patient has dialysis on Sunday. She is currently in dialysis. Continue with her Renvela (3) GI (gastrointestinal bleed): Qualifiers: GI bleed type/associated pathology: unspecified gastrointestinal hemorrhage type Qualified Code(s): K92.2 - Gastrointestinal hemorrhage, unspecified Code(s): K92.2 - Gastrointestinal hemorrhage, unspecified Status: Acute Assessment and Plan: Transfuse 2 units of packed red blood cells. Patient has a Protonix drip at this time. Dr. Malcolm has been consulted (4) Wound of foot: Code(s): S91.309A - Unspecified open wound, unspecified foot, initial encounter Status: Chronic Assessment and Plan: she has a dressing to the right foot it appears that she has had a recent right small toe amputation. Wound care has been consulted for further dressing changes. (5) Hyperkalemia: Code(s): E87.5 - Hyperkalemia Status: Acute Assessment and Plan: We will recheck her basic metabolic panel eat her patient is getting dialysis at this time. Her potassium was found to be 6.2 hold losartan at this time (6) Type 2 diabetes mellitus: Qualifiers: Diabetes mellitus complication status: without complication Diabetes mellitus supervisor scrap preparation insulin use: without supervisor scrap preparation use Qualified Code(s): E11.9 - Type 2 diabetes mellitus without complications Code(s): E11.9 - Type 2 diabetes mellitus without complications Status: Chronic Assessment and Plan: Accu-Cheks AC and HS and check A1c. (7) Hyperlipidemia: Code(s): E78.5 - Hyperlipidemia, unspecified Status: Chronic Assessment and Plan: I do not see any current medications for this problem. (8) Atrial fibrillation: Qualifiers: Atrial fibrillation type: unspecified Qualified Code(s): I48.91 - Unspecified atrial fibrillation Code(s): I48.91 - Unspecified atrial fibrillation Status: Chronic Assessment and Plan: patient is in sinus rhythm at this time. She is on Coreg. DS: Summary Time Spent with Patient Time attestation: Total time spent providing and/or coordinating discharge services: Exam Narrati
--- NOTE | 2020-05-04 16:43 | PDONCCN ---
HPI - Date of Consult Date/Time: 05/04/20 16:43 Requesting Physician: Nikko Tan MD Primary Care Provider: David Coppola MD - Consult Narrative Reason for consult: Multifactorial anemia Narrative: Shasta Obando is a 75 year old female This is the pleasant 75-year-old [place] female with history of end-stage renal disease and has been on dialysis 3 times a week under the supervision of Dr. Jacob quintana. Patient came into the hospital with complain of black tarry stool for 5-6 days duration. She was feeling tiredness and fatigue. Patient was on baby aspirin. She is also receiving Epogen with hemodialysis. Patient has the remote history of gastric ulcer. Her last blood transfusion was almost 2 weeks ago. Her baseline hemoglobin is around 7-8. Her blood was found to be 5.7. She received 1 unit of packed red blood cell. Hemoccult stool came back positive in the ER. Patient had EGD done in December of 2019 that showed healed gastric ulcer. Colonoscopy done on December 21 showed diverticulosis and hemorrhoids without any active bleeding. Follow-up EGD done on February 23, 2020 came back unremarkable other than a small hiatal hernia. Capsule enteroscopy done on March 09 came back unremarkable. Follow-up EGD on March 24 also unremarkable. She remains quite tired and fatigued. She has occasional abdominal discomfort. Denies any nausea vomiting. Complain of dark stool. No other new complaints. Review of Systems - Review of Systems All systems reviewed & are unremarkable except as noted in HPI and bel - Neurologic Reports system reviewed and no additional complaints, except as documented, Reports hearing normal, Denies abnormal speech, Denies abnormal gait, Denies confusion, Denies headache(s), Denies focal weakness, Denies loss of vision, Denies numbness, Denies other visual disturbances, Denies sensory deficit [facility] Medical History: Medical History (Last Reviewed 05/03/20 @ 14:15 by Lila Schuster NP) Acute on chronic blood loss anemia Amputated toe of left foot Anemia of chronic disease Megaloblastic anemia AV fistula Left upper extremity Closed fracture of lateral portion of right tibial plateau Onset Date: ~2014 End stage renal disease on dialysis Dialysis days are Sunday, Sunday, and Sunday. She is on the transplant list at [facility]. Hiatal hernia Hyperlipidemia Hypertension Occult blood in stools Osteoarthritis of both knees Osteoporosis PAD (peripheral artery disease) With history of midfoot amputation Paroxysmal atrial fibrillation Pulmonary hypertension Echocardiogram August 2019: EF 65-70 %, indeterminate left ventricular diastolic function, mild biatrial enlargement, mild mitral valve regurgitation, moderate tricuspid regurgitation, mild pulmonary hypertension with RVSP of 39 Spinal stenosis at L4-L5 level High-grade central canal stenosis noted on MRI February 2017 Staphylococcal septicemia Onset Date: ~2013 Thoracic ascending aortic aneurysm 4.[address] scan from August 2019 Type 2 diabetes mellitus Hemoglobin A1c was 6.6 in July 2019. Surgical History: Surgical History (Last Reviewed 05/03/20 @ 14:16 by Lila Schuster NP) Amputation at midfoot 5th digit right footAnd the great toe on the left History of arthroplasty of right ankle History of arthroscopy Onset Date: ~12/07/12 wrist History of bilateral cataract extraction History of colonoscopy Onset Date: ~12/02/15 History of knee replacement Onset Date: ~2015 right Presence of Watchman left atrial appendage closure device Family History: Family History (Last Reviewed 05/03/20 @ 19:36 by Gillian Arambula RN) Father Hypertension Heart disease Mother Diabetes mellitus Hypertension Tobacco dependence Lung cancer Sibling Heart disease - Social History Social History: Social History (Last Reviewed 05/03/20 @ 14:16 by Lila Schuster NP) Gender Identit
== END 2020-05-04 17:03 | disposition home or self-care (01) ==
LOC: ANHED 10:38 → ANHIMU 11:36
PROVIDERS: Internal Medicine Gastroenterology; Nurse Practitioner; Admitting Provider Family Medicine; Emergency Provider Emergency Medicine; PCP Family Medicine; Visit Provider Family Medicine
DX: K92.2 Gastrointestinal hemorrhage, unspecified (principal); K92.1 Melena; D64.9 Anemia, unspecified; N18.6 End stage renal disease; D63.1 Anemia in chronic kidney disease; Z99.2 Dependence on renal dialysis; R06.02 Shortness of breath; I12.0 Hypertensive chronic kidney disease with stage 5 chronic kidney disease or end stage renal disease; E11.22 Type 2 diabetes mellitus with diabetic chronic kidney disease; E87.5 Hyperkalemia; E78.5 Hyperlipidemia, unspecified; F41.9 Anxiety disorder, unspecified; I48.91 Unspecified atrial fibrillation; Z89.421 Acquired absence of other right toe(s); Z89.412 Acquired absence of left great toe; Z79.4 Long term (current) use of insulin; Z96.651 Presence of right artificial knee joint; Z95.818 Presence of other cardiac implants and grafts
CPT/HCPCS: 36415; 36430; 80053; 82607; 82728; 82746; 83036; 83540; 83550; 83605; 83735; 84100; 84439; 84443; 84480; 85014; 85018; 85025; 85046; 85610; 85730; 86850; 86900; 86901; 86923; 93005; 96365; 96366; 96375; 96376; 99285; A9270; C9113; G0257; G0378; J1200; J7030; J7050; J7060; P9016; Q5106

== ENCOUNTER 2020-09-01 14:19 | Outpatient (CLI) | payer MEDICARE, MEDICAID, SELFPAY ==
[2020-09-01 14:38] LABS: Basophils Percent Auto 0.3 % (0.2-1.2); Eosinophils Absolute Auto 0.1 K/mm3 (0-0.3); Eosinophils Percent Auto 1.1 % (0-4.4); Hematocrit 42.3 % (37.0-47.0); Hemoglobin 12.3 g/dL (12.0-15.0); Immature Granulocyte Absolute 0.02 K/mm3 (0.00-0.031); Immature Granulocyte Percent A 0.3 % (0-0.5); Lymphocytes Absolute Auto 1.02 K/mm3 (0.9-3.2); Lymphocytes Percent Auto 15.8 % (18.3-44.2); Mean Corpuscular HGB Conc 29.1 g/dl (32-36); Mean Corpuscular Hemoglobin 26.3 pg (26-34); Mean Corpuscular Volume 90.4 fl (80-100); Mean Platelet Volume 11.8 fl (7.4-10.4); Monocytes Percent Auto 15.5 % (2.6-8.5); Neutrophils Absolute Auto 4.3 K/mm3 (1.3-6.7); Platelet Count Result 127 k/mm3 (150-375); Red Blood Count 4.68 M/mm3 (4.2-5.4); Red Cell Distribution Width 18.3 % (11.5-14.5); White Blood Count 6.5 K/mm3 (4.5-10.0)
[2020-09-01 14:41] LABS: Blood Urea Nitrogen 27 mg/dL (8-26); Carbon Dioxide 30 mmol/L (22-30); Chloride 94 mmol/L (98-109); Estimated Glomerular Filt Rate 11; Glucose 225 mg/dL (70-105); Potassium 4.1 mmol/L (3.5-4.9); Sodium 133 mmol/L (138-146)
[2020-09-01 14:43] LABS: Hypochromasia 1+ (NORMAL); Platelet Estimate Decreased (Adequate)
[2020-09-01 18:22] LABS: Iron 32 ug/dL (37-170)
[2020-09-01 18:37] LABS: Percent Iron Saturation 12 % (20-50)
== END 2020-09-01 14:20 | disposition home or self-care (01) ==
LOC: ANHLAB 14:21
PROVIDERS: PCP Family Medicine; Visit Provider Internal Medicine Hematology & Oncology
DX: N18.5 Chronic kidney disease, stage 5 (principal); D63.1 Anemia in chronic kidney disease
CPT/HCPCS: 36415; 80048; 82728; 83540; 83550; 85025

== ENCOUNTER 2021-01-18 15:48 | Outpatient (CLI) | payer MEDICARE, MEDICAID, SELFPAY ==
--- NOTE | ~2021-01-18 | MM_ITS ---
EXAMINATION: MM screening jazlyn BI w stephen HISTORY: Screening mammogram TECHNIQUE: Craniocaudal and mediolateral oblique 3-D tomosynthesis images were obtained and synthetic 2-D images were generated. CAD analysis was submitted and interpreted. COMPARISON: 05/29/2019, 08/21/2017, 08/15/2016, 09/18/2014 BREAST PARENCHYMAL COMPOSITION: There are scattered areas of fibroglandular density. FINDINGS: Scattered benign-appearing calcifications are present. There is no evidence of suspicious m ass, calcification, or architectural distortion to suggest malignancy in either breast. There has bee n no suspicious interval change. IMPRESSION: 1. No mammographic evidence of malignancy. 2. Recommend routine screening mammography in one year. BI-RADS Category 2: Benign finding(s). Reviewed, dictated and finalized at location A.
== END 2021-01-18 15:49 | disposition home or self-care (01) ==
LOC: ANHIMG 15:50
PROVIDERS: PCP Family Medicine; Visit Provider Family Medicine
DX: Z12.31 Encounter for screening mammogram for malignant neoplasm of breast (principal)
CPT/HCPCS: 77063; 77067

== ENCOUNTER 2021-02-28 12:23 | Emergency (ER) | payer MEDICARE, MEDICAID, SELFPAY ==
[2021-02-28 12:52] VITALS: BP 82/40; PULSE 82; RESP 18; TEMP 36.4; O2SAT 99
[2021-02-28 13:02] VITALS: BP 107/40; PULSE 80; RESP 16; O2SAT 96
[2021-02-28 13:34] LABS: Basophils Percent Auto 0.2 % (0.2-1.2); Eosinophils Percent Auto 0.1 % (0-4.4); Hematocrit 36.5 % (37.0-47.0); Hemoglobin 11.3 g/dL (12.0-15.0); Immature Granulocyte Absolute 0.03 K/mm3 (0.00-0.031); Immature Granulocyte Percent A 0.3 % (0-0.5); Lymphocytes Absolute Auto 0.75 K/mm3 (0.9-3.2); Mean Corpuscular Hemoglobin 30.9 pg (26-34); Mean Corpuscular Volume 99.7 fl (80-100); Mean Platelet Volume 11.3 fl (7.4-10.4); Monocytes Percent Auto 9.4 % (2.6-8.5); Platelet Count Result 156 k/mm3 (150-375); Red Blood Count 3.66 M/mm3 (4.2-5.4); Red Cell Distribution Width 14.7 % (11.5-14.5); White Blood Count 10.8 K/mm3 (4.5-10.0)
[2021-02-28] MEDS: SODIUM CHLORIDE 0.9% IV 1,000 ML 150 ML IV CONT (13:41)
[2021-02-28 13:43] VITALS: BP 104/42; PULSE 78; RESP 18; O2SAT 93
[2021-02-28 15:45] LABS: Alanine Aminotransferase 11 U/L (4-35); Albumin Level 2.6 g/dL (3.5-5.1); Alkaline Phosphatase 304 U/L (38-126); Anion Gap 9 mmol/L (8-16); Aspartate Amino Transferase 20 U/L (14-36); Bilirubin,Total 0.5 mg/dL (0.2-1.3); Blood Urea Nitrogen 20 mg/dL (7-17); Calcium 6.1 mg/dL (8.4-10.2); Carbon Dioxide 23 mmol/L (22-30); Chloride 101 mmol/L (98-107); Estimated CRCL calculation 13 ml/min; Estimated Glomerular Filt Rate 15; Glucose 120 mg/dL (65-110); Lipase 63 U/L (23-300); Potassium 2.4 mmol/L (3.4-5.0); Sodium 133 mmol/L (137-145)
[2021-02-28 15:50] VITALS: BP 111/46; PULSE 75; RESP 16; O2SAT 96
--- NOTE | 2021-02-28 16:38 | ED.GENADULT ---
HPI - General Adult General Chief complaint: Nausea/Vomiting/Diarrhea <Titi Block MD - Last Filed: 02/28/21 16:46> Stated complaint: DIARRHEA, VOMITING <Titi Block MD - Last Filed: 02/28/21 16:46> Time Seen by Provider: 02/28/21 13:06 <Titi Block MD - Last Filed: 02/28/21 16:46> Source: patient <Titi Block MD - Last Filed: 02/28/21 16:46> Mode of arrival: ambulatory <Titi Block MD - Last Filed: 02/28/21 16:46> Limitations: no limitations <Titi Block MD - Last Filed: 02/28/21 16:46> History of Present Illness HPI narrative: 75-year-old with a history of ESRD on hemodialysis here with complaints of lower abdominal cramping associated with diarrhea for past 3 days. Patient states that she ate pumpkin seeds soon after she started having diarrhea. Patient states that she has taken Imodium was feeling slightly better however today she did have dialysis earlier this morning. Patient states that after she went home she started feeling weak. She denies any blood in the stool. No history of fever or chills. <Titi Block MD - Last Filed: 02/28/21 16:46> Onset (ago): day(s) (3) <Titi Block MD - Last Filed: 02/28/21 16:46> Location: abdomen <MD Shaka Wasserman Last Filed: 02/28/21 16:46> Radiation: non-radiation <Titi Block MD - Last Filed: 02/28/21 16:46> Severity: mild <Titi Block MD - Last Filed: 02/28/21 16:46> Quality: aching <Titi Block MD - Last Filed: 02/28/21 16:46> Pain Consistency: intermittent <Titi Block MD - Last Filed: 02/28/21 16:46> Relieving factors: none <MD Shaka Wasserman Last Filed: 02/28/21 16:46> Exacerbating factors: none <Titi Block MD - Last Filed: 02/28/21 16:46> Associated symptoms: denies other symptoms <Titi Block MD - Last Filed: 02/28/21 16:46> Treatments prior to arrival: none <Titi Block MD - Last Filed: 02/28/21 16:46> Related Data Home medications: Home Medications Medication Instructions Recorded Confirmed cyanocobalamin (vitamin B-12) 500 mcg PO DAILY 06/12/19 11/04/20 Santyl 1 applic TOPICAL DAILY 02/20/20 11/04/20 acetaminophen [Acetaminophen Extra 1,000 mg PO Q6H PRN 02/20/20 11/04/20 Strength] biotin 10,000 mcg capsule 10,000 mcg PO .QD cap 03/29/20 11/04/20 cinacalcet 30 mg tablet 30 mg PO DAILY 03/29/20 11/04/20 sevelamer HCl 800 mg tablet 800 mg PO TID 03/29/20 11/04/20 losartan 100 mg tablet 100 mg PO DAILY 08/25/20 11/04/20 epoetin shira 3,000 unit/mL 3,000 unit SUBCUT 3XW 09/02/20 11/04/20 injection solution ferric carboxymaltose 750 mg IV WEEKLY 09/02/20 11/04/20 epoetin shira 10,000 unit/mL 2,000 unit IV 3XW 11/04/20 11/04/20 injection solution iron dextran 50 mg/mL injection 50 mg IM 3XW 11/04/20 11/04/20 solution <Titi Block MD - Last Filed: 02/28/21 16:46> Allergies/adverse reactions: Allergies Allergy/AdvReac Type Severity Reaction Status Date / Time cefazolin Allergy Mild nausea/dizz Verified 02/28/21 13:05 iness enalapril Allergy Unknown cough Verified 02/28/21 13:05 pioglitazone Allergy Unknown Unknown Verified 02/28/21 13:05 tramadol Allergy Unknown hallucinati Verified 02/28/21 13:05 ons gabapentin Allergy Hallucinati Verified 02/28/21 13:05 ng <Titi Block MD - Last Filed: 02/28/21 16:46> Review of Systems Review of Systems: All systems reviewed & are unremarkable except as noted in HPI and below <Titi Block MD - Last Filed: 02/28/21 16:46> Constitutional: Constitutional: Reports no additional constitutional complaints <Titi Block MD - Last Filed: 02/28/21 16:46> Eyes: Eyes: Reports no additional eye complaints <Titi Block MD - Last Filed: 02/28/21 16:46> ENT: Reports system reviewed and no additional complaints, except as documented <Titi Block MD - Last Filed: 02/28/21 16:46> Cardiovascular: Cardio
[2021-02-28 18:45] VITALS: BP 122/44; PULSE 74; RESP 18; O2SAT 100
--- NOTE | 2021-02-28 18:52 | PC.NURSE ---
Called lab and spoke to Shayna to add on K
[2021-02-28 19:39] LABS: Potassium 4.3 mmol/L (3.4-5.0)
[2021-02-28 19:49] VITALS: BP 117/53; PULSE 73; RESP 16; O2SAT 96
--- NOTE | 2021-02-28 20:17 | PC.NURSE ---
Pt ate crackers and drank water with no increased nausea or vomiting.
== END 2021-02-28 20:18 | disposition home or self-care (01) ==
PROVIDERS: Emergency Medicine; Emergency Provider Family Medicine; PCP Family Medicine
DX: E87.6 Hypokalemia (principal); R19.7 Diarrhea, unspecified; R11.10 Vomiting, unspecified; E11.22 Type 2 diabetes mellitus with diabetic chronic kidney disease; I12.0 Hypertensive chronic kidney disease with stage 5 chronic kidney disease or end stage renal disease; N18.6 End stage renal disease; Z99.2 Dependence on renal dialysis; Z79.899 Other long term (current) drug therapy; E78.5 Hyperlipidemia, unspecified; M17.0 Bilateral primary osteoarthritis of knee; M81.0 Age-related osteoporosis without current pathological fracture; I48.0 Paroxysmal atrial fibrillation; E11.51 Type 2 diabetes mellitus with diabetic peripheral angiopathy without gangrene; I27.20 Pulmonary hypertension, unspecified; I08.1 Rheumatic disorders of both mitral and tricuspid valves; D53.1 Other megaloblastic anemias, not elsewhere classified; Z89.431 Acquired absence of right foot; Z89.412 Acquired absence of left great toe; Z98.42 Cataract extraction status, left eye; Z98.41 Cataract extraction status, right eye; Z96.651 Presence of right artificial knee joint
CPT/HCPCS: 36415; 80053; 83690; 84132; 85025; 96361; 96365; 96366; 99284; J3480; J7030; J7060

== ENCOUNTER 2021-05-03 08:04 | Emergency (ER) | payer MEDICARE, MEDICAID, SELFPAY ==
[2021-05-03 08:12] VITALS: BP 145/57; PULSE 75; RESP 16; TEMP 37; O2SAT 96
[2021-05-03 08:33] LABS: Basophils Percent Auto 0.5 % (0.2-1.2); Eosinophils Absolute Auto 0.1 K/mm3 (0-0.3); Eosinophils Percent Auto 2.3 % (0-4.4); Hematocrit 33.1 % (37.0-47.0); Hemoglobin 10.3 g/dL (12.0-15.0); Immature Granulocyte Absolute 0.01 K/mm3 (0.00-0.031); Immature Granulocyte Percent A 0.2 % (0-0.5); Lymphocytes Absolute Auto 1.46 K/mm3 (0.9-3.2); Lymphocytes Percent Auto 26.2 % (18.3-44.2); Mean Corpuscular HGB Conc 31.1 g/dl (32-36); Mean Corpuscular Hemoglobin 30.6 pg (26-34); Mean Corpuscular Volume 98.2 fl (80-100); Mean Platelet Volume 11.4 fl (7.4-10.4); Monocytes Absolute Auto 0.7 K/mm3 (0.1-0.6); Monocytes Percent Auto 12.2 % (2.6-8.5); Neutrophils Absolute Auto 3.3 K/mm3 (1.3-6.7); Neutrophils Percent Auto 58.6 % (45.5-73.1); Platelet Count Result 160 k/mm3 (150-375); Red Blood Count 3.37 M/mm3 (4.2-5.4); Red Cell Distribution Width 15.6 % (11.5-14.5); White Blood Count 5.6 K/mm3 (4.5-10.0)
[2021-05-03 08:45] LABS: Alanine Aminotransferase 15 U/L (4-35); Albumin Level 4.1 g/dL (3.5-5.1); Alkaline Phosphatase 251 U/L (38-126); Anion Gap 8 mmol/L (8-16); Aspartate Amino Transferase 37 U/L (14-36); Bilirubin,Total 1.2 mg/dL (0.2-1.3); Blood Urea Nitrogen 28 mg/dL (7-17); Calcium 8.1 mg/dL (8.4-10.2); Carbon Dioxide 32 mmol/L (22-30); Chloride 96 mmol/L (98-107); Estimated Glomerular Filt Rate 9; Glucose 121 mg/dL (65-110); Sodium 136 mmol/L (137-145)
--- NOTE | 2021-05-03 09:21 | ED.NAVMDI ---
HPI - Nausea/Vomiting/Diarrhea General Chief complaint: Nausea/Vomiting/Diarrhea Stated complaint: diarrhea Time Seen by Provider: 05/03/21 08:06 Source: patient Mode of arrival: ambulatory Limitations: no limitations History of Present Illness HPI Narrative: 76-year-old with a history of diabetes, hypertension, ESRD on hemodialysis here with complaints of diarrhea for last few days. She states this is a ongoing problem, denies any fever or chills. No history of blood in the stool. No recent antibiotic usage. Patient states that she had endoscopies in the past. MD elicited complaint: diarrhea and abdominal pain Onset (ago): day(s) (5) Description of vomiting: watery Description of diarrhea: watery Associated abdominal pain: Yes (In the lower abdomen) Location of pain: none Radiation: other (Lower abdomen) Pain consistency: intermittent Severity: moderate Quality: cramping Exacerbating factors: none Relieving factors: none Associated symptoms: denies other symptoms Related Data Home Medications Medication Instructions Recorded Confirmed cyanocobalamin (vitamin B-12) 500 mcg PO DAILY 06/12/19 04/28/21 Santyl 1 applic TOPICAL DAILY 02/20/20 04/28/21 acetaminophen [Acetaminophen Extra 1,000 mg PO Q6H PRN 02/20/20 04/28/21 Strength] biotin 10,000 mcg capsule 10,000 mcg PO .QD cap 03/29/20 04/28/21 cinacalcet 30 mg tablet 30 mg PO DAILY 03/29/20 04/28/21 sevelamer HCl 800 mg tablet 800 mg PO TID 03/29/20 04/28/21 losartan 100 mg tablet 25 mg PO DAILY 08/25/20 04/28/21 epoetin shira 3,000 unit/mL 3,000 unit SUBCUT 3XW 09/02/20 04/28/21 injection solution ferric carboxymaltose 750 mg IV WEEKLY 09/02/20 04/28/21 epoetin shira 10,000 unit/mL 2,000 unit IV 3XW 11/04/20 04/28/21 injection solution iron dextran 50 mg/mL injection 50 mg IM 3XW 11/04/20 04/28/21 solution atorvastatin 10 mg tablet 10 mg PO QHS 03/09/21 04/28/21 clopidogrel 75 mg tablet 75 mg PO DAILY 03/09/21 04/28/21 Allergies Allergy/AdvReac Type Severity Reaction Status Date / Time enalapril Allergy Unknown cough Verified 04/07/21 13:58 pioglitazone Allergy Unknown Unknown Verified 04/07/21 13:58 tramadol Allergy Unknown hallucinati Verified 04/07/21 13:58 ons gabapentin Allergy Hallucinati Verified 04/07/21 13:58 ng cefazolin AdvReac Mild nausea/dizz Verified 05/03/21 09:34 iness Review of Systems Review of Systems: All systems reviewed & are unremarkable except as noted in HPI and below Constitutional: Constitutional: Reports no additional constitutional complaints Eyes: Eyes: Reports no additional eye complaints ENT: Reports system reviewed and no additional complaints, except as documented Cardiovascular: Cardiovascular: Reports no additional cardiovascular complaints Respiratory: Respiratory: Reports no additional respiratory complaints Gastrointestinal: Gastrointestinal: Reports as per HPI Musculoskeletal: Musculoskeletal: Reports no additional musculoskeletal complaints Integumentary/Breasts: Skin/Breast: Reports system reviewed and no additional complaints, except as docu Neurologic: Reports system reviewed and no additional complaints, except as documented [facility] Past Medical History Medical History Acute on chronic blood loss anemia Amputated toe of left foot Anemia of chronic disease Megaloblastic anemia Anemia of chronic disease AV fistula Left upper extremity Closed fracture of lateral portion of right tibial plateau (~2014) End stage renal disease on dialysis Dialysis days are Sunday, Sunday, and Sunday. She is on the transplant list at [facility]. Hiatal hernia Hyperlipidemia Hypertension Occult blood in stools Osteoarthritis of both knees Osteoporosis PAD (peripheral artery disease) With history of midfoot amputation Paroxysmal atrial fibrillation Pulmonary hypertension Echocardiogram August 2019: EF 65-70 %, indeterminate left ventricular
[2021-05-03] MEDS: DIPHENOXYLATE/ATROPINE (*CRX) 2.5 MG TABLET 1 TABLET PO (09:41)
[2021-05-03 11:06] VITALS: BP 138/76; PULSE 72; RESP 18; O2SAT 97
== END 2021-05-03 11:10 | disposition home or self-care (01) ==
PROVIDERS: Emergency Provider Family Medicine; PCP Family Medicine
DX: R19.7 Diarrhea, unspecified (principal); E11.22 Type 2 diabetes mellitus with diabetic chronic kidney disease; N18.6 End stage renal disease; Z99.2 Dependence on renal dialysis; D53.1 Other megaloblastic anemias, not elsewhere classified; E78.5 Hyperlipidemia, unspecified; M17.0 Bilateral primary osteoarthritis of knee; I12.0 Hypertensive chronic kidney disease with stage 5 chronic kidney disease or end stage renal disease; E11.51 Type 2 diabetes mellitus with diabetic peripheral angiopathy without gangrene; I48.0 Paroxysmal atrial fibrillation; I27.20 Pulmonary hypertension, unspecified; Z89.412 Acquired absence of left great toe; Z89.421 Acquired absence of other right toe(s); Z98.42 Cataract extraction status, left eye; Z98.41 Cataract extraction status, right eye; Z96.651 Presence of right artificial knee joint; Z79.84 Long term (current) use of oral hypoglycemic drugs
CPT/HCPCS: 36415; 80053; 85025; 87045; 87324; 87427; 87493; 89055; 99283; A9270

== ENCOUNTER 2021-08-24 12:17 | Emergency (ER) | payer MEDICARE, MEDICAID, SELFPAY ==
[2021-08-24 12:24] VITALS: BP 157/65; PULSE 78; RESP 16; TEMP 36.7; O2SAT 100
--- NOTE | 2021-08-24 13:02 | PC.NURSE ---
pt to desk to inform this RN she will try another day because it is too busy . pt was amb with steady gait out of building.
--- NOTE | 2021-08-24 14:21 | ED.GENADULT ---
HPI - General Adult General Chief complaint: Unspecified Stated complaint: dialysis bleed Time Seen by Provider: 08/24/21 14:01 Source: patient and RN notes reviewed Mode of arrival: ambulatory Limitations: no limitations History of Present Illness HPI narrative: 76-year-old female presenting to the emergency department for evaluation of bleeding from her dialysis port. Patient did have dialysis this morning and they stated they had difficulty getting the bleeding to stop from her access site. Upon arrival to the department patient did have a clamp in place. Patient states this has been in place for an extended period of time. Patient denies any complaints at this time. When clamp was removed from her right arm patient had no additional bleeding. Related Data Home Medications Medication Instructions Recorded Confirmed cyanocobalamin (vitamin B-12) 500 mcg PO DAILY 06/12/19 08/04/21 Santyl 1 applic TOPICAL DAILY 02/20/20 08/04/21 acetaminophen [Acetaminophen Extra 1,000 mg PO Q6H PRN 02/20/20 08/04/21 Strength] biotin 10,000 mcg capsule 10,000 mcg PO .QD cap 03/29/20 08/04/21 cinacalcet 30 mg tablet 30 mg PO DAILY 03/29/20 08/04/21 sevelamer HCl 800 mg tablet 800 mg PO TID 03/29/20 08/04/21 epoetin shira 3,000 unit/mL 3,000 unit SUBCUT 3XW 09/02/20 08/04/21 injection solution ferric carboxymaltose 750 mg IV WEEKLY 09/02/20 08/04/21 epoetin shira 10,000 unit/mL 2,000 unit IV 3XW 11/04/20 08/04/21 injection solution iron dextran 50 mg/mL injection 50 mg IM 3XW 11/04/20 08/04/21 solution atorvastatin 10 mg tablet 10 mg PO QHS 03/09/21 08/04/21 clopidogrel 75 mg tablet 75 mg PO DAILY 03/09/21 08/04/21 losartan 100 mg tablet 50 mg PO BID tablet 08/04/21 08/04/21 Allergies Allergy/AdvReac Type Severity Reaction Status Date / Time enalapril Allergy Unknown cough Verified 08/04/21 09:10 pioglitazone Allergy Unknown Unknown Verified 08/04/21 09:10 tramadol Allergy Unknown hallucinati Verified 08/04/21 09:10 ons gabapentin Allergy Hallucinati Verified 08/04/21 09:10 ng cefazolin AdvReac Mild nausea/dizz Verified 08/04/21 09:10 iness Review of Systems Review of Systems: CONSTITUTIONAL: Denies fever, chills, or sweats. EYES: Denies visual changes, redness, or discharge. ENT: Denies rhinorrhea, congestion, sore throat, or otalgia. CARDIOVASCULAR: Denies chest pain, palpitations, or edema. RESPIRATORY: Denies cough or dyspnea. GASTROINTESTINAL: Denies abdominal pain, nausea, vomiting, or diarrhea. GENITOURINARY: Denies dysuria or hematuria. SKIN: Denies rash or itching. MUSCULOSKELETAL: Denies back pain, joint pain, or myalgia. NEUROLOGIC: Denies headache, numbness, or weakness. PSYCHIATRIC: Denies anxiety or depression. All systems reviewed & are unremarkable except as noted in HPI and below PMFSH Past Medical History Medical History Acute on chronic blood loss anemia Amputated toe of left foot Anemia of chronic disease Megaloblastic anemia Anemia of chronic disease AV fistula Left upper extremity Closed fracture of lateral portion of right tibial plateau (~2014) End stage renal disease on dialysis Dialysis days are Sunday, Sunday, and Sunday. She is on the transplant list at [facility]. Hiatal hernia Hyperlipidemia Hypertension Occult blood in stools Osteoarthritis of both knees Osteoporosis PAD (peripheral artery disease) With history of midfoot amputation Paroxysmal atrial fibrillation Pulmonary hypertension Echocardiogram August 2019: EF 65-70 %, indeterminate left ventricular diastolic function, mild biatrial enlargement, mild mitral valve regurgitation, moderate tricuspid regurgitation, mild pulmonary hypertension with RVSP of 39 Spinal stenosis at L4-L5 level High-grade central canal stenosis noted on MRI February 2017 Staphylococcal septicemia (~2013) Thoracic ascending aortic aneurysm 4.[address] scan from August 2019
== END 2021-08-24 14:47 | disposition home or self-care (01) ==
PROVIDERS: Emergency Provider Emergency Medicine; PCP Family Medicine
DX: T82.838A Hemorrhage due to vascular prosthetic devices, implants and grafts, initial encounter (principal); E11.22 Type 2 diabetes mellitus with diabetic chronic kidney disease; I12.0 Hypertensive chronic kidney disease with stage 5 chronic kidney disease or end stage renal disease; N18.6 End stage renal disease; D53.1 Other megaloblastic anemias, not elsewhere classified; E78.5 Hyperlipidemia, unspecified; I48.0 Paroxysmal atrial fibrillation; E11.51 Type 2 diabetes mellitus with diabetic peripheral angiopathy without gangrene; I27.20 Pulmonary hypertension, unspecified; M17.0 Bilateral primary osteoarthritis of knee; M81.0 Age-related osteoporosis without current pathological fracture; I71.2 Thoracic aortic aneurysm, without rupture; Z99.2 Dependence on renal dialysis; Z89.432 Acquired absence of left foot; Z98.42 Cataract extraction status, left eye; Z98.41 Cataract extraction status, right eye; Z96.651 Presence of right artificial knee joint; Z79.899 Other long term (current) drug therapy; Z79.84 Long term (current) use of oral hypoglycemic drugs
CPT/HCPCS: 99281

== ENCOUNTER 2022-02-16 13:21 | Outpatient (CLI) | payer MEDICARE, MEDICAID, SELFPAY ==
--- NOTE | ~2022-02-16 | MM_ITS ---
EXAMINATION: MM screening [facility] BI w stephen HISTORY: Screening mammogram TECHNIQUE: Craniocaudal and mediolateral oblique 3-D tomosynthesis images were obtained and synthetic 2-D images were generated. CAD analysis was submitted and interpreted. COMPARISON: 01/18/2021, 05/29/2019 BREAST PARENCHYMAL COMPOSITION: The breasts are heterogeneously dense, which may obscure small masses . FINDINGS: Scattered benign-appearing calcifications are present. There is no suspicious mass, calcifi cation, or architectural distortion to suggest malignancy in either breast. There has been no suspici ous interval change. IMPRESSION: 1. No mammographic evidence of malignancy. 2. Recommend routine screening mammography in one year. BI-RADS Category 2: Benign finding(s). Reviewed, dictated and finalized at location A.
--- NOTE | ~2022-02-16 | DEXA_ITS ---
Bone Density Report Name: NEO RÍOS Age: 76 Sex: Female Ethnicity: White Date of : 1945 Indication: postmenopausal; screening for osteoporosis; height loss; end stage renal disease; Referring Provider: NOY PENN Study: Bone densitometry was performed. Exam Date: February 16, 2022 Accession number: [id number] Bone Density: Region BMD T-score Z-score Classification AP Spine(L1-L4) 0.818 -2.1 0.4 Osteopenia Femoral Neck (Left) 0.433 -3.7 -1.6 Osteoporosis Total Hip (Left) 0.555 -3.2 -1.3 Osteoporosis Femoral Neck (Right) 0.384 -4.2 -2.1 Osteoporosis Total Hip (Right) 0.511 -3.5 -1.7 Osteoporosis Total Hip Mean 0.533 -3.4 -1.5 Osteoporosis World Health Organization criteria for BMD impression classify patients as: Normal (T-score at or above -1.0), Osteopenia (T-score between -1.0 and -2.5), or Osteoporosis (T-score at or below -2.5). 10-year Fracture Risk: FRAX not reported because: Some T-score for Spine Total or Hip Total or Femoral Neck at or below -2.5 Clinical Information Provided by Patient: Has used the following medications: Vitamin D, Calcium Has the following medical conditions: End stage renal disease Patient maximum height was 60 Menopause Age: 51 Drinks caffeinated beverages Onset of menses at age 13 Number of children 3 Impression: The patient has osteoporosis, based on the Right Femoral Neck T-score. Discussion: HIGH RISK OF FRACTURE. BONE DENSITY IS UNDESIRABLY LOW AT ONE OR MORE SKELETAL SITES, CONSISTENT WITH OSTEOPOROSIS. ALSO, BONE DENSITY IS LOWER THAN EXPECTED FOR AGE AND SEX AT ONE OR MORE SKELETAL SITES; RECOMMEND A DILIGENT SEARCH FOR SECONDARY CAUSES OF BONE LOSS. This patient's lowest T-score meets the World Health Organization's (WHO) criteria for osteoporosis at one or more sites (T-score -2.5 or below). In untreated patients, the risk of osteoporotic fracture increases approximately two-fold for each 1.0 SD decrease in T-score. Low bone density is not the only risk factor for fracture; also consider factors such as patient's age, frailty or poor health, risk of falling, risk of injury, previous osteoporotic fracture, family history of osteoporosis, cigarette smoking, low body weight, etc. Not everyone with low bone mineral density has osteoporosis; osteomalacia and other metabolic bone disorders should also be considered. Patients who have osteoporosis should be evaluated for specific diseases and conditions (secondary causes) that may cause or contribute to bone loss. The [place] [employer] Endocrinologists (AACE) and National Osteoporosis Foundation (NOF) recommend pharmacologic intervention for all postmenopausal women whose T-score is in this range. Also, this patient's bone mineral density is below the range considered normal fo
== END 2022-02-16 13:22 | disposition home or self-care (01) ==
PROVIDERS: PCP Family Medicine; Visit Provider Family Medicine
DX: Z12.31 Encounter for screening mammogram for malignant neoplasm of breast (principal); Z78.0 Asymptomatic menopausal state; M85.88 Other specified disorders of bone density and structure, other site; M81.0 Age-related osteoporosis without current pathological fracture
CPT/HCPCS: 77063; 77067; 77080

== ENCOUNTER 2022-12-15 13:08 | Outpatient (NON) | payer MEDICARE, MEDICAID, SELFPAY ==
[2022-12-15 13:50] LABS: Hematocrit 27.5 % (37.0-47.0); Hemoglobin 8.5 g/dL (12.0-15.0)
== END 2022-12-15 13:09 | disposition home or self-care (01) ==
LOC: ANHLAB 13:13
PROVIDERS: PCP Family Medicine; Visit Provider Internal Medicine Nephrology
DX: N18.6 End stage renal disease (principal)
CPT/HCPCS: 36415; 85014; 85018

== ENCOUNTER 2022-12-15 15:37 | Emergency (ER) | payer MEDICARE, MEDICAID, SELFPAY ==
[2022-12-15 15:47] VITALS: BP 145/54; PULSE 71; RESP 18; TEMP 36.6; O2SAT 98
[2022-12-15 16:01] LABS: Basophils Percent Auto 0.4 % (0.2-1.2); Eosinophils Absolute Auto 0.1 K/mm3 (0-0.3); Eosinophils Percent Auto 1.3 % (0-4.4); Hematocrit 31.6 % (37.0-47.0); Hemoglobin 9.7 g/dL (12.0-15.0); Immature Granulocyte Absolute 0.01 K/mm3 (0.00-0.031); Immature Granulocyte Percent A 0.2 % (0-0.5); Lymphocytes Absolute Auto 1.66 K/mm3 (0.9-3.2); Lymphocytes Percent Auto 31.4 % (18.3-44.2); Mean Corpuscular HGB Conc 30.7 g/dl (32-36); Mean Corpuscular Hemoglobin 31.3 pg (26-34); Mean Corpuscular Volume 101.9 fl (80-100); Mean Platelet Volume 11.2 fl (7.4-10.4); Monocytes Absolute Auto 0.5 K/mm3 (0.1-0.6); Neutrophils Percent Auto 56.7 % (45.5-73.1); Platelet Count Result 115 k/mm3 (150-375); Red Cell Distribution Width 14.4 % (11.5-14.5); White Blood Count 5.3 K/mm3 (4.5-10.0)
[2022-12-15 16:12] LABS: Alanine Aminotransferase 18 U/L (6-35); Albumin Level 4.6 g/dL (3.5-5.1); Alkaline Phosphatase 335 U/L (38-126); Anion Gap 13 mmol/L (8-16); Aspartate Amino Transferase 27 U/L (14-36); Bilirubin,Total 0.7 mg/dL (0.2-1.3); Blood Urea Nitrogen 71 mg/dL (7-17); Calcium 8.5 mg/dL (8.4-10.2); Carbon Dioxide 29 mmol/L (22-30); Chloride 95 mmol/L (98-107); Estimated CRCL calculation 5 ml/min; Estimated Glomerular Filt Rate 6; Glucose 213 mg/dL (65-110); Potassium 4.6 mmol/L (3.4-5.0); Sodium 137 mmol/L (137-145)
[2022-12-15 16:13] LABS: INR 1.1; Prothrombin Time 14.5 Seconds (11.1-14.7)
[2022-12-15 16:15] LABS: Partial Thromboplastin Time 31.6 SECONDS (22.3-36.8)
--- NOTE | 2022-12-15 17:18 | PC.NURSE ---
pt asked what her HGB result that was drawn in ED. After she found out result she called some family members and decided to go home and will f/u with PCP doctor Sunday or come back to the ED if she feels bad. Pt is A/O x 4, smiling and gait steady with ambulation, pt does use a cane.
== END 2022-12-15 17:33 | disposition left against medical advice (07) ==
LOC: ANHED 17:25
PROVIDERS: Emergency Provider Emergency Medicine; PCP Family Medicine
DX: D64.9 Anemia, unspecified (principal)
CPT/HCPCS: 36415; 80053; 85025; 85610; 85730; 86850; 86900; 86901; 99199

== ENCOUNTER 2022-12-25 08:02 | Observation (INO) | payer MEDICARE, MEDICAID, SELFPAY ==
[2022-12-25] VITALS (52 sets, daily range): BP systolic 113–197; BP diastolic 35–87; PULSE 60–84; RESP 12–30; TEMP 36–37.2; O2SAT 90–100; BMI 27.4; BMI 26.0
--- NOTE | ~2022-12-25 | XR_ITS ---
Clinical Indication: Shortness of breath AP and lateral views of the chest: Comparison: 12/19/2019 Findings: The lungs are clear, without evidence of focal consolidation or pleural effusion. Cardiome diastinal silhouette is stable. Bones and soft tissues are unremarkable. Impression: Clear lungs. Reviewed, dictated and finalized at location . Impression: Clear lungs.
--- NOTE | 2022-12-25 08:09 | ECG_ITS ---
Measurements Intervals [place] Rate: 75 P: KS: 0 QRS: 70 QRSD: 86 T: 48 QT: 385 QTc: 431 Interpretive Statements ATRIAL FIBRILLATION MINIMAL ST DEPRESSION [0.025+ mV ST DEPRESSION] ABNORMAL RHYTHM ECG COMPARED TO ECG 05/03/2020 07:09:31 NO DIFFERENCE Electronically Signed On 12-25-2022 15:48:48 CDT by David Rodriguez M.D.
--- NOTE | 2022-12-25 08:15 | PC.NURSE ---
[facility] in [place] contacted per patient request. Joelle at [facility] [place] informed patient will not be making her 0930 appointment.
[2022-12-25 09:22] LABS: Basophils Percent Auto 0.3 % (0.2-1.2); Eosinophils Absolute Auto 0.1 K/mm3 (0-0.3); Immature Granulocyte Absolute 0.02 K/mm3 (0.00-0.031); Immature Granulocyte Percent A 0.3 % (0-0.5); Lymphocytes Absolute Auto 1.43 K/mm3 (0.9-3.2); Lymphocytes Percent Auto 18.4 % (18.3-44.2); Mean Corpuscular HGB Conc 29.9 g/dl (32-36); Mean Corpuscular Volume 106.9 fl (80-100); Mean Platelet Volume 11.5 fl (7.4-10.4); Monocytes Absolute Auto 0.8 K/mm3 (0.1-0.6); Monocytes Percent Auto 9.6 % (2.6-8.5); Neutrophils Absolute Auto 5.5 K/mm3 (1.3-6.7); Neutrophils Percent Auto 70.4 % (45.5-73.1); Platelet Count Result 158 k/mm3 (150-375); Red Blood Count 1.75 M/mm3 (4.2-5.4); Red Cell Distribution Width 15.5 % (11.5-14.5); White Blood Count 7.8 K/mm3 (4.5-10.0)
[2022-12-25 09:27] LABS: Hematocrit 18.7 % (37.0-47.0); Hemoglobin 5.6 g/dL (12.0-15.0)
[2022-12-25 09:33] LABS: INR 1.2; Partial Thromboplastin Time 30.8 SECONDS (22.3-36.8); Prothrombin Time 15.5 Seconds (11.1-14.7)
[2022-12-25 09:34] LABS: Alanine Aminotransferase 19 U/L (6-35); Albumin Level 3.8 g/dL (3.5-5.1); Alkaline Phosphatase 198 U/L (38-126); Anion Gap 12 mmol/L (8-16); Aspartate Amino Transferase 28 U/L (14-36); Bilirubin,Total 0.5 mg/dL (0.2-1.3); Blood Urea Nitrogen 85 mg/dL (7-17); Carbon Dioxide 22 mmol/L (22-30); Chloride 100 mmol/L (98-107); Estimated Glomerular Filt Rate 4; Glucose 158 mg/dL (65-110); Potassium 5.4 mmol/L (3.4-5.0); Sodium 134 mmol/L (137-145)
[2022-12-25 09:47] LABS: Anisocytosis 1+ (NORMAL); Hypochromasia 2+ (NORMAL); Platelet Estimate Adequate (Adequate); Schistocytes None Seen (NORMAL)
[2022-12-25 09:48] LABS: Troponin I 0.049 ng/mL (0.000-0.034)
[2022-12-25 09:49] LABS: NT Pro B Type Natriuretic Pept > 30000 pg/mL (19.9-100)
[2022-12-25 09:54] LABS: Iron 39 ug/dL (37-170)
[2022-12-25 10:03] LABS: Percent Iron Saturation 16 % (20-50)
--- NOTE | 2022-12-25 10:37 | ED.GENADULT ---
HPI - General Adult General Chief complaint: Shortness of Breath/Dyspnea Stated complaint: CP/SOB Time Seen by Provider: 12/25/22 08:04 History of Present Illness HPI narrative: Patient is a 77-year-old female who presents ER with weakness and shortness of breath. Reports became extremely short of breath today. Has some central chest heaviness. Reports she has history of a GI ulcer at this time. Denies dark black stools or bright red blood in her stools. She reports she has been taking her PPI at home. Denies fevers or chills or sweats. No loss of consciousness. Related Data Home Medications Medication Instructions Recorded Confirmed cyanocobalamin (vitamin B-12) 500 500 mcg PO DAILY 06/12/19 12/25/22 mcg tablet acetaminophen 500 mg tablet 1,000 mg PO Q6H PRN Pain 02/20/20 12/25/22 (Acetaminophen Extra Strength) cinacalcet 30 mg tablet 30 mg PO DAILY 03/29/20 12/25/22 sevelamer HCl 800 mg tablet 800 mg PO TID 03/29/20 12/25/22 atorvastatin 40 mg tablet 40 mg PO DAILY 10/25/21 12/25/22 calcium carbonate 200 mg calcium 400 mg PO QHS 10/25/21 12/25/22 (500 mg) chewable tablet (Tums) clotrimazole 1 % topical cream 1 applic topical Q12H 10/25/21 06/29/22 lidocaine-prilocaine 2.5 %-2.5 % 1 g topical ONCE 10/25/21 06/29/22 topical cream vitamin B complex and vitamin C 1 cap PO DAILY 10/25/21 06/29/22 no.20-folic acid 1 mg capsule (Renal Caps) carvedilol 12.5 mg tablet (Coreg) 6.25 mg PO DAILY 05/11/22 12/25/22 Allergies Allergy/AdvReac Type Severity Reaction Status Date / Time cephalexin Allergy Mild Rash Verified 11/08/22 13:44 enalapril Allergy Unknown cough Verified 11/08/22 13:44 pioglitazone Allergy Unknown Unknown Verified 11/08/22 13:44 tramadol Allergy Unknown hallucinati Verified 11/08/22 13:44 ons gabapentin Allergy Hallucinati Verified 11/08/22 13:44 ng cefazolin AdvReac Mild nausea/dizz Verified 11/08/22 13:44 iness Review of Systems Review of Systems: All systems reviewed & are unremarkable except as noted in HPI and below Constitutional: Constitutional: Denies chills, Reports fatigue and Denies fever(s) ENT: Denies nasal congestion and Denies sore throat Cardiovascular: Cardiovascular: Reports chest pain, Denies rapid heart rate and Denies radiating jaw, neck or arm pain Respiratory: Respiratory: Denies chest congestion, Reports dyspnea and Denies wheezing Gastrointestinal: Gastrointestinal: Denies abdominal pain, Reports heartburn, Denies nausea and Denies vomiting [facility] Past Medical History Medical History Acute on chronic blood loss anemia Amputated toe of left foot Anemia of chronic disease Megaloblastic anemia Anemia of chronic disease AV fistula Left upper extremity Closed fracture of lateral portion of right tibial plateau (~2014) End stage renal disease on dialysis Dialysis days are Sunday, Sunday, and Sunday. She is on the transplant list at [facility]. Hiatal hernia Hyperlipidemia Hypertension Occult blood in stools Osteoarthritis of both knees Osteoporosis PAD (peripheral artery disease) With history of midfoot amputation Paroxysmal atrial fibrillation Pulmonary hypertension Echocardiogram August 2019: EF 65-70 %, indeterminate left ventricular diastolic function, mild biatrial enlargement, mild mitral valve regurgitation, moderate tricuspid regurgitation, mild pulmonary hypertension with RVSP of 39 Spinal stenosis at L4-L5 level High-grade central canal stenosis noted on MRI February 2017 Staphylococcal septicemia (~2013) Thoracic ascending aortic aneurysm 4.[address] scan from August 2019 Type 2 diabetes mellitus Hemoglobin A1c was 6.6 in July 2019. Surgical History Surgical History Amputation at midfoot 5th digit right footAnd the great toe on the left History of arthroplasty of right ankle History of arthroscopy (~12/07
[2022-12-25 11:02] LABS: Folic Acid > 20.0 ng/mL (2.76->20); Vitamin B12 > 1000.0 pg/mL (239-931)
[2022-12-25] MEDS: PANTOPRAZOLE SODIUM IV 40 MG VIAL 80 MG IV PUSH (11:20)
--- NOTE | 2022-12-25 11:40 | PC.NURSE ---
credit intern contacted. [facility] pt needs to have results of hep b study back before he can be in dialysis room with another pt. [facility] has 2 pt on machine now so pt will go to the floor first.
[2022-12-25 12:02] LABS: Hepatitis B Surface Antigen Negative (Negative)
[2022-12-25 12:21] LABS: Hepatitis B Surface Anti Res Positive
--- NOTE | 2022-12-25 13:07 | ADMGEN ---
This patient, Shasta Obando, was admitted to IMU Room 231-01. Patient/family oriented to hospital policies and general routines including ID bracelet, bed and alarms, visiting hours, pain management, procedures, bathroom and other care routines, personal items, smoking policy, room service/diet, and visiting hours. Information on how to activate the Rapid Response Team has been discussed. Patient/Family are encouraged to report perceived risks to care and to ask questions if they do not understand what they are told or what they should do.
--- NOTE | 2022-12-25 13:11 | PM.IMHP ---
H&P: HPI History of Present Illness Date/Time: 12/25/22 13:11 Chief Complaint: Shortness of breath/chest pain Narrative: This is a 77-year-old female patient who has end-stage renal disease. Her dialysis days are Sunday. The patient stated that she felt more short of breath. She stated that she has not missed any dialysis days. The patient has been having black stools. She has a prior history of peptic ulcer disease. A PPI was started. Last night and again this morning the patient gradually progressed to shortness of breath. Her H&H is 5.6 and 18.7. She is started on a unit packed red blood cells. Platelets are 158. Her sodium was 134, potassium 5.4, BUN 85 and creatinine 9.0. GFR is 4. Blood glucose 158. TIBC is 249 percentage saturation [address] cole has seen the patient and she is going to dialysis. The patient stated that she is no longer on a kidney transplant other diabetes. Troponin 0.049 and 0.047. BNP greater than 30,000. Vitamin B12 greater than 1000 folate greater than 20. The patient is being admitted to observation status on the date of service of 12/25/2022. Review of Systems Review of Systems: All systems reviewed & are unremarkable except as noted in HPI and below Constitutional: Constitutional: Reports as per HPI and Reports no additional constitutional complaints Eyes: Eyes: Reports as per HPI and Reports no additional eye complaints ENT: Reports system reviewed and no additional complaints, except as documented and Reports Normal hearing present Cardiovascular: Cardiovascular: Reports no additional cardiovascular complaints Respiratory: Respiratory: Reports no additional respiratory complaints and Reports no additional respiratory complaints Gastrointestinal: Gastrointestinal: Reports as per HPI and Reports no additional gastrointestinal complaints Musculoskeletal: Musculoskeletal: Reports no additional musculoskeletal complaints Integumentary/Breasts: Skin/Breast: Reports system reviewed and no additional complaints, except as docu and Reports as per HPI Neurologic: Reports system reviewed and no additional complaints, except as documented, Reports as per HPI and Reports Normal hearing present Psychiatric: Psychiatric: Reports no additional psychiatric complaints and Reports as per HPI Endocrine: Endocrine: Reports no additional endocrine complaints Hematologic/Lymphatic: Hematologic/Lymphatic: Reports no additional hematologic/lymphatic complaints Allergic/Immunologic: Allergic/Immunologic: Reports no additional allergic/immunologic complaints [facility] Past Medical History Medical History Acute on chronic blood loss anemia Amputated toe of left foot Anemia of chronic disease Megaloblastic anemia Anemia of chronic disease AV fistula Left upper extremity Closed fracture of lateral portion of right tibial plateau (~2014) End stage renal disease on dialysis Dialysis days are Sunday, Sunday, and Sunday. She is on the transplant list at [place]. Hiatal hernia Hyperlipidemia Hypertension Occult blood in stools Osteoarthritis of both knees Osteoporosis PAD (peripheral artery disease) With history of midfoot amputation Paroxysmal atrial fibrillation Pulmonary hypertension Echocardiogram August 2019: EF 65-70 %, indeterminate left ventricular diastolic function, mild biatrial enlargement, mild mitral valve regurgitation, moderate tricuspid regurgitation, mild pulmonary hypertension with RVSP of 39 Spinal stenosis at L4-L5 level High-grade central canal stenosis noted on MRI February 2017 Staphylococcal septicemia (~2013) Thoracic ascending aortic aneurysm 4.[address] scan from August 2019 Type 2 diabetes mellitus Hemoglobin A1c was 6.6 in July 2019. Surgical History Surgical History Amputation at midfoot 5th digit right footAnd the g
[2022-12-25] MEDS: PANTOPRAZOLE SODIUM IV 80 MG in SODIUM CHLORIDE 0.9% IV 500 ML 50 MG IV CONT (13:17)
[2022-12-25] MEDS: SODIUM CHLORIDE 0.9% IV 250 ML 30 ML IV CONT (13:17)
--- NOTE | 2022-12-25 13:55 | PM.CNNEP ---
Assessment and Plan Assessment and plan (1) End stage renal disease on dialysis: Code(s): N18.6 - End stage renal disease; Z99.2 - Dependence on renal dialysis Status: Chronic Assessment and Plan: the patient has end-stage renal disease. She is due for dialysis today. I called the nurse and she knows about the patient. She will get a treatment this afternoon. She is getting a unit of blood right now but will have another unit of blood to give. We can give the rest of this unit and the 2nd unit on dialysis. The patient's potassium is 5.4 so we will do her on a 2 K bath volume status looks okay. Will remove a little bit of fluid for maintenance purposes. (2) Generalized weakness: Code(s): R53.1 - Weakness Status: Acute Assessment and Plan: This plus her dyspnea are probably due to her severe anemia. I ordered stool guaiacs. I wonder if her ulcer is actually acting up. She is on a PPI. Dr. Abreu has been consulted (3) Atrial fibrillation: Qualifiers: Atrial fibrillation type: unspecified Qualified Code(s): I48.91 - Unspecified atrial fibrillation Code(s): I48.91 - Unspecified atrial fibrillation Status: Chronic Assessment and Plan: her heart rate is under good control (4) Hyperlipidemia: Code(s): E78.5 - Hyperlipidemia, unspecified Status: Chronic Assessment and Plan: she takes atorvastatin (5) Hypertension: Qualifiers: Hypertension type: unspecified Qualified Code(s): I10 - Essential (primary) hypertension Code(s): I10 - Essential (primary) hypertension Status: Chronic Assessment and Plan: systolic running 110-130. (6) Type 2 diabetes mellitus: Qualifiers: Diabetes mellitus extermination supervisor insulin use: without extermination supervisor use Diabetes mellitus complication status: without complication Qualified Code(s): E11.9 - Type 2 diabetes mellitus without complications Code(s): E11.9 - Type 2 diabetes mellitus without complications Status: Chronic Assessment and Plan: Management per says hospitalists (7) Anemia of chronic disease: Code(s): D63.8 - Anemia in other chronic diseases classified elsewhere Status: Acute Assessment and Plan: she is getting a unit of blood. T sat is only 16. Will start iron and EPO tomorrow since she is getting blood today. History of Present Illness Reason for Consult Consult date: 12/25/22 Chief Complaint Chief complaint: Occult GI bleed, Anemia, Chest Pain, Hyperkalemia History of Present Illness Narrative: Shasta Is a very pleasant 77-year-old lady who has multiple medical problems including end-stage renal disease on dialysis Wednesdays and Fridays, anemia of chronic kidney disease, history of peptic ulcer disease, renal osteodystrophy, hypertension, hyperlipidemia, peripheral arterial disease status post midfoot amputation, paroxysmal atrial fibrillation, pulmonary hypertension, diabetes. The patient has been doing pretty well in dialysis. Her blood pressures been reasonably good. She has a little fluid on but it is relatively easy to get her down to her dry weight. A week ago she had blood drawn at the dialysis unit and her hemoglobin came down to 7.8 where it had been around 10. this was repeated and still low so she was sent to the ER. At the ER hemoglobin was 9.7 and she was having no symptoms so she was sent home. The patient denied any blood in her stools. She denied any black stools at the time. She did say that she had had a prior history of peptic ulcer disease so we called in a PPI for her to take in case there is anything going on. Although she has not had any belly pain see or vomiting. Last night and this morning the patient has developed gradually progressive shortness of breath. She came to the ER this morning because it was pretty bad. They evaluated her and found that she had
[2022-12-25 14:01] LABS: Troponin I 0.047 ng/mL (0.000-0.034)
--- NOTE | 2022-12-25 15:30 | PC.NURSE ---
Up to dialysis via bed.
--- NOTE | 2022-12-25 15:35 | WPDGICN ---
Assessment and Plan Assessment and plan (1) Acute on chronic blood loss anemia: Code(s): D62 - Acute posthemorrhagic anemia Status: Acute Assessment and Plan: with a sudden drop her blood counts some black tarry stools, is suspicious for upper gastrointestinal bleeding. He also has had some epigastric discomfort. I will schedule her for an EGD. She has does receive 1 unit of blood and will be receiving a 2nd. (2) End stage renal disease on dialysis: Code(s): N18.6 - End stage renal disease; Z99.2 - Dependence on renal dialysis Status: Chronic Assessment and Plan: Her creatinine today is up to 9. She is going to dialysis shortly. She normally has dialysis on Wednesdays and Fridays. (3) Megaloblastic anemia: Code(s): D53.1 - Other megaloblastic anemias, not elsewhere classified Status: Acute Assessment and Plan: She has normal B12 folic acid levels, but her MCV is chronically elevated and higher now than it has been in the past. Plan She will get another unit of blood today. We will schedule her for EGD to be done tomorrow. Dialysis to be again shortly. Blood counts will be watched. Ppi has been started GI Consult Note Consult date/time: 12/25/22 15:35 HPI: Shasta Jaxson Javad Obando is a 77 year old female with end-stage renal disease who came to emergency room today because of increasing weakness. She states that she has had black stools for about 2 weeks. Her brother is a physician told her that if it continued after 5 days that it was not good. She has been short of breath and fatigue. She has been anemic in the past she does have chronic kidney disease and she is also known to have megaloblastic anemia but this is of fairly sudden drop with her hemoglobin being 9.7 a couple of weeks ago and now down to 5.6. she has a history of ulcers. She states that Dr. Suarez put her on medicine for possible ulcer, famotidine. She has also had some epigastric pain. She denies using NSAIDs. She has had some nausea but no vomiting. She has had ulcer in the past. Her last EGD, 3 years ago was unremarkable. Review of Systems Review of Systems: All systems reviewed & are unremarkable except as noted in HPI and below PMFSH Past Medical History Medical History Acute on chronic blood loss anemia Amputated toe of left foot Anemia of chronic disease Megaloblastic anemia Anemia of chronic disease AV fistula Left upper extremity Closed fracture of lateral portion of right tibial plateau (~2014) End stage renal disease on dialysis Dialysis days are Sunday, Sunday, and Sunday. She is on the transplant list at [facility] [facility]. Hiatal hernia Hyperlipidemia Hypertension Occult blood in stools Osteoarthritis of both knees Osteoporosis PAD (peripheral artery disease) With history of midfoot amputation Paroxysmal atrial fibrillation Pulmonary hypertension Echocardiogram August 2019: EF 65-70 %, indeterminate left ventricular diastolic function, mild biatrial enlargement, mild mitral valve regurgitation, moderate tricuspid regurgitation, mild pulmonary hypertension with RVSP of 39 Spinal stenosis at L4-L5 level High-grade central canal stenosis noted on MRI February 2017 Staphylococcal septicemia (~2013) Thoracic ascending aortic aneurysm 4.[address] scan from August 2019 Type 2 diabetes mellitus Hemoglobin A1c was 6.6 in July 2019. Surgical History Surgical History Amputation at midfoot 5th digit right footAnd the great toe on the left History of arthroplasty of right ankle History of arthroscopy (~12/07/12) wrist History of bilateral cataract extraction History of colonoscopy (~12/02/15) History of knee replacement (~2015) right Presence of Watchman left atrial appendage closure device Family History Family History (Reviewed 12/25
[2022-12-25 17:39] LABS: Troponin I 0.053 ng/mL (0.000-0.034)
[2022-12-25 18:23] LABS: Hematocrit 26.2 % (37.0-47.0); Hemoglobin 8.6 g/dL (12.0-15.0)
--- NOTE | 2022-12-25 20:20 | PC.NURSE ---
Returned from dialysis. Alert and responding appropriately. respirations even/nonlabored, skin w/d. Denies complaints. States, now I feel better .
[2022-12-25 20:44] LABS: Glucose Point of Care 112 mg/dl (65-105)
[2022-12-25] MEDS: traZODone HCL 50 MG TABLET PO (20:45)
[2022-12-25] MEDS: SEVELAMER CARBONATE 800 MG TABLET PO (20:45)
[2022-12-25] MEDS: CALCIUM CARBONATE (TUMS) 500 MG (200 MG ELEMENTAL) 400 MG PO (20:45)
[2022-12-26] VITALS (18 sets, daily range): BP systolic 100–187; BP diastolic 28–78; PULSE 63–94; RESP 16–22; TEMP 36.2–36.7; O2SAT 95–100
[2022-12-26 00:49] LABS: Hematocrit 24.5 % (37.0-47.0); Hemoglobin 7.9 g/dL (12.0-15.0)
[2022-12-26 05:11] LABS: Hematocrit 26.9 % (37.0-47.0); Hemoglobin 8.4 g/dL (12.0-15.0); Mean Corpuscular HGB Conc 31.2 g/dl (32-36); Mean Corpuscular Hemoglobin 30.5 pg (26-34); Mean Corpuscular Volume 97.8 fl (80-100); Mean Platelet Volume 11.9 fl (7.4-10.4); Platelet Count Result 140 k/mm3 (150-375); Red Blood Count 2.75 M/mm3 (4.2-5.4); Red Cell Distribution Width 19.9 % (11.5-14.5)
[2022-12-26 05:22] LABS: Lactic Acid Reflex 0.7 mmol/L (0.7-2.0)
[2022-12-26 05:28] LABS: Alanine Aminotransferase 18 U/L (6-35); Albumin Level 3.4 g/dL (3.5-5.1); Alkaline Phosphatase 180 U/L (38-126); Anion Gap 5 mmol/L (8-16); Aspartate Amino Transferase 30 U/L (14-36); Bilirubin,Total 0.8 mg/dL (0.2-1.3); Blood Urea Nitrogen 33 mg/dL (7-17); Calcium 7.7 mg/dL (8.4-10.2); Carbon Dioxide 33 mmol/L (22-30); Chloride 101 mmol/L (98-107); Estimated Glomerular Filt Rate 11; Glucose 135 mg/dL (65-110); Hemoglobin A1C 5.5 % (<5.7); Magnesium 2.1 mg/dL (1.6-2.3); Phosphorus 3.8 mg/dL (2.5-4.5); Potassium 3.8 mmol/L (3.4-5.0); Sodium 139 mmol/L (137-145)
[2022-12-26 08:29] LABS: Glucose Point of Care 164 mg/dl (65-105)
[2022-12-26 10:59] LABS: Hemoglobin 8.8 g/dL (12.0-15.0)
--- NOTE | 2022-12-26 11:21 | WPDANESEPPF ---
Anes - Initial Pre Proc Eval Procedure: Operation Date: 12/26/22 15:30 Proposed Procedures p Esophagogastroduodenoscopy - Venkata Abreu MD Date/Time: 12/26/22 11:21 Surgeon: Lior Delarosa MD Pre Op Diagnosis: Occult GI bleed, Anemia, Chest Pain, Hyperkalemia Patient Data Age: 77 Gender: F Height: 1.42 m Weight: 52.7 kg Last Vital Signs Temp 97.8 F 12/26/22 08:00 Pulse 93 12/26/22 08:00 Resp 22 H 12/26/22 08:00 BP 187/75 H 12/26/22 08:00 Pulse Ox 98 12/26/22 08:00 O2 Del Method Nasal Cannula 12/26/22 04:00 O2 Flow Rate 2 12/26/22 04:00 Allergies Allergy/AdvReac Type Severity Reaction Status Date / Time cephalexin Allergy Mild Rash Verified 11/08/22 13:44 enalapril Allergy Unknown cough Verified 11/08/22 13:44 pioglitazone Allergy Unknown Unknown Verified 11/08/22 13:44 tramadol Allergy Unknown hallucinati Verified 11/08/22 13:44 ons gabapentin Allergy Hallucinati Verified 11/08/22 13:44 ng cefazolin AdvReac Mild nausea/dizz Verified 11/08/22 13:44 iness Home Medications Medication Instructions Recorded Confirmed Type cyanocobalamin (vitamin B-12) 500 500 mcg PO DAILY 06/12/19 12/25/22 History mcg tablet acetaminophen 500 mg tablet 1,000 mg PO Q6H PRN Pain 02/20/20 12/25/22 History (Acetaminophen Extra Strength) cinacalcet 30 mg tablet 30 mg PO DAILY 03/29/20 12/25/22 History sevelamer HCl 800 mg tablet 800 mg PO TID 03/29/20 12/25/22 History liraglutide 0.6 mg/0.1 mL (18 mg/3 See Rx Instructions .Route 06/08/21 06/29/22 Rx mL) subcutaneous pen injector .COMPLEX #18 mL (Victoza 2-Agustín) blood sugar diagnostic #500 ea 07/18/21 06/29/22 Rx atorvastatin 40 mg tablet 40 mg PO DAILY 10/25/21 12/25/22 History calcium carbonate 200 mg calcium 400 mg PO QHS 10/25/21 12/25/22 History (500 mg) chewable tablet (Tums) clotrimazole 1 % topical cream 1 applic topical Q12H 10/25/21 06/29/22 History lidocaine-prilocaine 2.5 %-2.5 % 1 g topical ONCE 10/25/21 06/29/22 History topical cream vitamin B complex and vitamin C 1 cap PO DAILY 10/25/21 06/29/22 History no.20-folic acid 1 mg capsule (Renal Caps) pen needle, diabetic 32 gauge x #100 ea 02/06/22 06/29/22 Rx 1/5 denosumab 60 mg/mL subcutaneous 60 mg subcut N4RHXISC #1 mL 02/20/22 06/29/22 Rx syringe (Prolia) insulin degludec 100 unit/mL (3 See Rx Instructions .Route 03/06/22 12/25/22 Rx mL) subcutaneous pen (Tresiba .COMPLEX #15 mL FlexTouch U-100 insulin) carvedilol 12.5 mg tablet (Coreg) 6.25 mg PO DAILY 05/11/22 12/25/22 History famotidine 40 mg tablet 40 mg PO DAILY #90 tabs 06/16/22 12/25/22 Rx sitagliptin phosphate 100 mg 100 mg PO DAILY #90 tabs 08/28/22 12/25/22 Rx tablet (Januvia) ergocalciferol (vitamin D2) 1,250 See Rx Instructions .Route 11/20/22 12/25/22 Rx mcg (50,000 unit) capsule .COMPLEX #13 caps trazodone 50 mg tablet 50 mg PO QHS #90 tabs 12/13/22 12/25/22 Rx Laboratory Tests 12/25/22 12/25/22 12/25/22 09:10 10:51 13:10 WBC RBC Hgb Hct MCV MCH MCHC RDW Plt Count MPV Sodium Potassium Chloride Carbon Dioxide Anion Gap BUN Creatinine Estim Creat Clear Calc Estimated GFR Glucose POC Capillary Glucose Hemoglobin A1c Lactic Acid Calcium Phosphorus Magnesium % Saturation 16 L % (20-50) Total Bilirubin AST ALT Alkaline Phosphatase Troponin I 0.047 H* ng/mL (0.000-0.034) Total Protein Albumin Hep Bs Antigen Negative (Negative) Hep Bs Antibody Positive Blood Type O Positive Antibody Screen Negative
[2022-12-26] MEDS: carvediloL 6.25 MG TABLET PO (11:22)
[2022-12-26] MEDS: SODIUM CHLORIDE 0.9% IV 500 ML 10 ML IV CONT (11:25)
--- NOTE | 2022-12-26 12:27 | PM.IMPN ---
Progress Note: A&P Assessment and Plan (1) Dyspnea: Code(s): R06.00 - Dyspnea, unspecified Status: Acute Assessment and Plan: The patient has severe anemia requiring a blood transfusion. Feeling better. Awaiting GI workup (2) End stage renal disease on dialysis: Code(s): N18.6 - End stage renal disease; Z99.2 - Dependence on renal dialysis Status: Chronic Assessment and Plan: Dr. Suarez has been consulted. (3) Type 2 diabetes mellitus: Qualifiers: Diabetes mellitus residential insulin use: without residential use Diabetes mellitus complication status: without complication Qualified Code(s): E11.9 - Type 2 diabetes mellitus without complications Code(s): E11.9 - Type 2 diabetes mellitus without complications Status: Chronic Assessment and Plan: Accu-Cheks AC and HS and will check A1c. Continue with H&H (4) Anemia of chronic disease: Code(s): D63.8 - Anemia in other chronic diseases classified elsewhere Status: Acute Assessment and Plan: Check her stool for occult blood. Plan for EGD. (5) Hyperlipidemia: Code(s): E78.5 - Hyperlipidemia, unspecified Status: Chronic Assessment and Plan: Continue with atorvastatin (6) Hypertension: Qualifiers: Hypertension type: unspecified Qualified Code(s): I10 - Essential (primary) hypertension Code(s): I10 - Essential (primary) hypertension Status: Chronic Assessment and Plan: Continue with Coreg Monitor blood pressure Subjective Date/time seen: 12/26/22 12:27 Interval history: Denies any additional bleeding. Overall feeling much better. Exam Const: General: cooperative, healthy appearing, comfortable, no acute distress, well developed, awake, Physically active, average body habitus and well nourished Nutritional Appearance: average body habitus and well nourished Orientation/consciousness: oriented to person, oriented to place, oriented to time and patient oriented x3 Limitations: no limitations HENMT: Head: normal to inspection, No palpable skull fracture present, normocephalic and atraumatic Ears: hearing grossly normal bilaterally and external ears normal Face/Nose/Sinus: Normal external nose present and Normal nares present Eyes: General: appearance normal, both eyes and all related structures Alignment and Position: alignment normal Periorbital: periorbital findings normal Eyelids: eyelids normal Sclera: sclerae normal Pupils: Equal, round and reactive pupils present EOM: EOMs intact bilaterally Neck: Neck: normal visual inspection, full ROM, no lymphadenopathy, trachea midline and supple Chest: Chest palpation & inspection: normal inspection of the chest Resp: Effort & Inspection: normal respiratory effort Auscultation: clear to auscultation bilaterally Cardio: Palpation: normal PMI Rate: regular rate Rhythm: regular rhythm Heart sounds: S1 normal heart sound present and S2 normal heart sound present Peripheral pulses: Peripheral pulses 2+ throughout GI: Inspection: normal to inspection Auscultation: normal bowel sounds Rectal Exam: deferred Back/Spine/Pelvis: Cervical Spine: cervical ROM normal Skin: General skin exam: normal color Lesions: no lesions Rashes: no rashes Trauma: no lacerations or abrasions Wounds: no wounds Hair: normal Nails: normal Neuro: General: oriented to person, oriented to place, oriented to time and patient oriented x3 Cranial nerves: Yes Equal, round and reactive pupils present and Yes Normal hearing present Cognition (Neuro): normal cognition Speech: normal speech Sensory Exam: normal sensation Extrem: General: normal to inspection Right upper extremity: normal to inspection and shoulder/upper arm Left upper extremity: normal to inspection and shoulder/upper arm Right lower extremity: normal to inspection Left lower extremity: normal to inspection Other: Dialysis catheter in
[2022-12-26 14:16] LABS: Glucose Point of Care 143 mg/dl (65-105)
[2022-12-26] MEDS: CINACALCET 30 MG TABLET PO (15:02)
[2022-12-26] MEDS: EPOETIN ALFA-EPBX 10,000 UNITS/ML VIAL 10000 UNITS SUB-Q (15:03)
[2022-12-26] MEDS: IRON SUCROSE COMPLEX 200 MG in SODIUM CHLORIDE 0.9% IV 50 ML 120 MG IVPB (15:03)
[2022-12-26] MEDS: SEVELAMER CARBONATE 800 MG TABLET PO ×2 (15:03→17:25)
[2022-12-26] MEDS: ATORVASTATIN 40 MG TABLET PO (15:03)
[2022-12-26] MEDS: CYANOCOBALAMIN 500 MCG TABLET PO (15:03)
--- NOTE | 2022-12-26 17:53 | PM.PNNEP ---
Progress Note: A&P Assessment and Plan (1) End stage renal disease on dialysis: Code(s): N18.6 - End stage renal disease; Z99.2 - Dependence on renal dialysis Status: Chronic Assessment and Plan: the patient has end-stage renal disease. She had dialysis today. There was some bleeding after dialysis. Pressure was held and the bleeding has stopped. However she does have some swelling in the hand and arm below the fistula. There is no pain or redness or sign of infection. Will elevate the arm. I told her to exercise the hand. I asked the nurse to do ice off and on in the area where the hematoma is. (2) Generalized weakness: Code(s): R53.1 - Weakness Status: Acute Assessment and Plan: This is better since she got her blood and got her dialysis (3) Atrial fibrillation: Qualifiers: Atrial fibrillation type: unspecified Qualified Code(s): I48.91 - Unspecified atrial fibrillation Code(s): I48.91 - Unspecified atrial fibrillation Status: Chronic Assessment and Plan: her heart rate is under good control . Her heart rate is in the 70s (4) Hyperlipidemia: Code(s): E78.5 - Hyperlipidemia, unspecified Status: Chronic Assessment and Plan: she takes atorvastatin (5) Hypertension: Qualifiers: Hypertension type: unspecified Qualified Code(s): I10 - Essential (primary) hypertension Code(s): I10 - Essential (primary) hypertension Status: Chronic Assessment and Plan: systolic running 100 to 150 (6) Type 2 diabetes mellitus: Qualifiers: Diabetes mellitus mcc insulin use: without mcc use Diabetes mellitus complication status: without complication Qualified Code(s): E11.9 - Type 2 diabetes mellitus without complications Code(s): E11.9 - Type 2 diabetes mellitus without complications Status: Chronic Assessment and Plan: Management per hospitalists (7) Anemia of chronic disease: Code(s): D63.8 - Anemia in other chronic diseases classified elsewhere Status: Acute Assessment and Plan: she is getting a unit of blood. T sat is only 16. Will start iron and EPO tomorrow since she is getting blood today. Subjective Date/time seen: 12/26/22 17:53 Interval history: sarah beth is feeling better today. She is sitting in semifowler's position comfortably in bed. She has some swelling in the right arm. There is no pain Review of Systems Cardiovascular: Cardiovascular: Reports no additional cardiovascular complaints Respiratory: Respiratory: Reports no additional respiratory complaints Gastrointestinal: Gastrointestinal: Reports no additional gastrointestinal complaints Genitourinary: Genitourinary: Reports no additional female genitourinary complaints Exam Narrative: WDWN in NAD skin no rash head ncat lungs clear cor reg no rub abd BS+ nontender and soft ext no edema in the presacral region or in the lower extremities. She does have edema in the right arm below her fistula. There is no pain or tenderness or redness. Objective Data Vital Signs Vital Signs: Vital Signs - 24 hr 12/25/22 18:00 12/25/22 20:32 12/25/22 20:00 Temperature 99 F Pulse Rate 74 79 Respiratory Rate 16 Blood Pressure 168/50 H Pulse Oximetry 100 100 Oxygen Delivery Nasal Cannula Oxygen Flow Rate 2 12/25/22 18:00 12/25/22 18:20 12/25/22 18:40 Temperature Pulse Rate 76 76 75 Respiratory Rate Blood Pressure 180/64 H 168/63 H 161/64 H Pulse Oximetry Oxygen Delivery Oxygen Flow Rate 12/25/22 19:00 12/25/22 19:21 12/25/22 20:00 Temperature 98.6 F Pulse Rate 78 79 79 Respiratory Rate 22 H Blood Pressure 175/68 H 161/67 H 147/69 H Pulse Oximetry 90 Oxygen Delivery Oxygen Flow Rate 12/25/22 23:22 12/25/22 20:00 12/25/22 22:00 Temperature 97.5 F L Pulse Rate 73 73 74 Respiratory
[2022-12-26 20:31] LABS: Glucose Point of Care 119 mg/dl (65-105)
[2022-12-26] MEDS: CALCIUM CARBONATE (TUMS) 500 MG (200 MG ELEMENTAL) 400 MG PO (21:03)
[2022-12-26] MEDS: traZODone HCL 50 MG TABLET PO (21:04)
[2022-12-26 21:52] LABS: Glucose Point of Care 130 mg/dl (65-105)
[2022-12-27] VITALS (31 sets, daily range): BP systolic 132–181; BP diastolic 34–69; PULSE 35–86; RESP 16–24; TEMP 36–37; O2SAT 94–100
[2022-12-27 05:43] LABS: Basophils Percent Auto 0.3 % (0.2-1.2); Eosinophils Absolute Auto 0.1 K/mm3 (0-0.3); Eosinophils Percent Auto 1.3 % (0-4.4); Hematocrit 25.5 % (37.0-47.0); Hemoglobin 7.9 g/dL (12.0-15.0); Immature Granulocyte Absolute 0.02 K/mm3 (0.00-0.031); Immature Granulocyte Percent A 0.3 % (0-0.5); Lymphocytes Absolute Auto 1.25 K/mm3 (0.9-3.2); Lymphocytes Percent Auto 16.5 % (18.3-44.2); Mean Corpuscular Hemoglobin 30.5 pg (26-34); Mean Corpuscular Volume 98.5 fl (80-100); Mean Platelet Volume 11.5 fl (7.4-10.4); Monocytes Absolute Auto 0.8 K/mm3 (0.1-0.6); Neutrophils Absolute Auto 5.4 K/mm3 (1.3-6.7); Neutrophils Percent Auto 71.6 % (45.5-73.1); Platelet Count Result 122 k/mm3 (150-375); Red Blood Count 2.59 M/mm3 (4.2-5.4); Red Cell Distribution Width 18.8 % (11.5-14.5); White Blood Count 7.6 K/mm3 (4.5-10.0)
[2022-12-27 05:53] LABS: Albumin Level 3.2 g/dL (3.5-5.1); Anion Gap 9 mmol/L (8-16); Blood Urea Nitrogen 46 mg/dL (7-17); Calcium 7.4 mg/dL (8.4-10.2); Carbon Dioxide 29 mmol/L (22-30); Chloride 100 mmol/L (98-107); Estimated Glomerular Filt Rate 6; Glucose 128 mg/dL (65-110); Phosphorus 4.6 mg/dL (2.5-4.5); Potassium 4.1 mmol/L (3.4-5.0); Sodium 138 mmol/L (137-145)
[2022-12-27 08:12] LABS: Glucose Point of Care 129 mg/dl (65-105)
[2022-12-27] MEDS: carvediloL 6.25 MG TABLET PO (08:33)
[2022-12-27] MEDS: SEVELAMER CARBONATE 800 MG TABLET PO ×2 (08:33→12:03)
[2022-12-27] MEDS: ATORVASTATIN 40 MG TABLET PO (08:34)
[2022-12-27] MEDS: CYANOCOBALAMIN 500 MCG TABLET PO (08:34)
[2022-12-27] MEDS: CINACALCET 30 MG TABLET PO (08:34)
[2022-12-27] MEDS: IRON SUCROSE COMPLEX 200 MG in SODIUM CHLORIDE 0.9% IV 50 ML 120 MG IVPB (10:14)
[2022-12-27] MEDS: PANTOPRAZOLE 40 MG TABLET PO ×2 (10:14→21:00)
--- NOTE | 2022-12-27 11:24 | PM.IMPN ---
Progress Note: A&P Assessment and Plan (1) Anemia of chronic disease: Code(s): D63.8 - Anemia in other chronic diseases classified elsewhere Status: Acute Assessment and Plan: Patient underwent EGD which showed reflux esophagitis and hiatal hernia. Continue PPI. Iron infusion ordered per Nephrology (2) End stage renal disease on dialysis: Code(s): N18.6 - End stage renal disease; Z99.2 - Dependence on renal dialysis Status: Chronic Assessment and Plan: Dr. Suarez has been consulted. (3) Type 2 diabetes mellitus: Qualifiers: Diabetes mellitus salvage determiner insulin use: without salvage determiner use Diabetes mellitus complication status: without complication Qualified Code(s): E11.9 - Type 2 diabetes mellitus without complications Code(s): E11.9 - Type 2 diabetes mellitus without complications Status: Chronic Assessment and Plan: Accu-Cheks AC and HS and will check A1c. (4) Hyperlipidemia: Code(s): E78.5 - Hyperlipidemia, unspecified Status: Chronic Assessment and Plan: Continue with atorvastatin (5) Hypertension: Qualifiers: Hypertension type: unspecified Qualified Code(s): I10 - Essential (primary) hypertension Code(s): I10 - Essential (primary) hypertension Status: Chronic Assessment and Plan: Continue with Coreg Monitor blood pressure Subjective Date/time seen: 12/27/22 11:24 Interval history: Patient states she feels weak this morning Review of Systems Review of Systems: All systems reviewed & are unremarkable except as noted in HPI and below Constitutional: Constitutional: Reports as per HPI and Reports no additional constitutional complaints Eyes: Eyes: Reports as per HPI and Reports no additional eye complaints ENT: Reports system reviewed and no additional complaints, except as documented and Reports Normal hearing present Cardiovascular: Cardiovascular: Reports no additional cardiovascular complaints Respiratory: Respiratory: Reports no additional respiratory complaints and Reports no additional respiratory complaints Gastrointestinal: Gastrointestinal: Reports as per HPI and Reports no additional gastrointestinal complaints Musculoskeletal: Musculoskeletal: Reports no additional musculoskeletal complaints Integumentary/Breasts: Skin/Breast: Reports system reviewed and no additional complaints, except as docu and Reports as per HPI Neurologic: Reports system reviewed and no additional complaints, except as documented, Reports as per HPI and Reports Normal hearing present Psychiatric: Psychiatric: Reports no additional psychiatric complaints and Reports as per HPI Endocrine: Endocrine: Reports no additional endocrine complaints Hematologic/Lymphatic: Hematologic/Lymphatic: Reports no additional hematologic/lymphatic complaints Allergic/Immunologic: Allergic/Immunologic: Reports no additional allergic/immunologic complaints Exam Const: General: cooperative, healthy appearing, comfortable, no acute distress, well developed, awake, Physically active, average body habitus and well nourished Nutritional Appearance: average body habitus and well nourished Orientation/consciousness: oriented to person, oriented to place, oriented to time and patient oriented x3 Limitations: no limitations HENMT: Head: normal to inspection, No palpable skull fracture present, normocephalic and atraumatic Ears: hearing grossly normal bilaterally and external ears normal Face/Nose/Sinus: Normal external nose present and Normal nares present Eyes: General: appearance normal, both eyes and all related structures Alignment and Position: alignment normal Periorbital: periorbital findings normal Eyelids: eyelids normal Sclera: sclerae normal Pupils: Equal, round and reactive pupils present EOM: EOMs intact bilaterally Neck: Neck: normal visual inspection, full ROM, no lymphadenopathy, trachea midline and supp
[2022-12-27 11:54] LABS: Glucose Point of Care 137 mg/dl (65-105)
--- NOTE | 2022-12-27 15:13 | PM.PNNEP ---
Progress Note: A&P Assessment and Plan (1) End stage renal disease on dialysis: Code(s): N18.6 - End stage renal disease; Z99.2 - Dependence on renal dialysis Status: Chronic Assessment and Plan: HD today continue dialysis schedule of M/W/F follow electrolytes, volume status, and clearance (2) Generalized weakness: Code(s): R53.1 - Weakness Status: Acute Assessment and Plan: presumably due to deconditioning and severe anemia on presentation clinical better/improved following PRBC transfusion continue supportive therapy (3) Anemia of chronic disease: Code(s): D63.8 - Anemia in other chronic diseases classified elsewhere Status: Acute Assessment and Plan: H/H quite low on admission PRBC transfusion per protocol s/p EGD -- findings of reflux esophagitis noted Epogen with HD on IV venofer follow trend of H/H (4) Hypertension: Qualifiers: Hypertension type: unspecified Qualified Code(s): I10 - Essential (primary) hypertension Code(s): I10 - Essential (primary) hypertension Status: Chronic Assessment and Plan: reasonable control at this time follow trend of hemodynamics (5) Type 2 diabetes mellitus: Qualifiers: Diabetes mellitus sewing machine tester insulin use: without usp use Diabetes mellitus complication status: without complication Qualified Code(s): E11.9 - Type 2 diabetes mellitus without complications Code(s): E11.9 - Type 2 diabetes mellitus without complications Status: Chronic Assessment and Plan: follow accu-cheks glycemic control per hospitalists Will continue to follow. Subjective Date/time seen: 12/27/22 15:13 Interval history: Follow-up for end stage renal disease on hemodialysis. Chart reviewed -- assuming care from Dr. Suarez; tolerating hemodialysis treatment at the time of my visit (seen on HD at 3:00PM); s/p EGD yesterday with findings noted; H/H has been relatively stable in the last 24 hours; no apparent distress at this time; no events overnight or earlier this morning. Exam Narrative: General: elderly and frail female in NAD Heart: normal S1 and S2; no rub Lungs: clear to auscultation Abdomen: soft, nontender, nondistended, positive bowel sounds Extremities: no cyanosis or clubbing; no edema Skin: warm and dry Objective Data Vital Signs Vital Signs: Vital Signs Temp Pulse Resp BP Pulse Ox O2 Del Method 12/27/22 15:00 65 147/55 H 12/27/22 14:49 65 132/50 L 12/27/22 14:47 98.0 F 61 18 136/53 L 96 12/27/22 14:00 54 L 12/27/22 12:00 Room Air 12/27/22 12:00 65 12/27/22 11:59 98.4 F 57 L 18 133/49 L 99 12/27/22 10:00 68 12/27/22 08:00 Room Air 12/27/22 08:00 74 12/27/22 08:33 78 12/27/22 08:00 97.8 F 75 24 H 163/57 H 100 12/27/22 06:00 64 12/27/22 04:00 60 12/27/22 02:00 68 12/27/22 04:00 Room Air 12/27/22 04:00 97.3 F L 59 L 16 143/69 H 99 12/27/22 00:00 58 L 12/26/22 22:00 63 12/26/22 20:00 70 12/27/22 00:00 86 16 99 Room Air 12/26/22 23:24 97.9 F 86 16 139/78 99 12/26/22 20:00 Room Air 12/26/22 20:00 97.6 F 73 16 147/52 H 100 12/26/22 18:00 65 Intake/Output Intake/Output: Intake & Output 12/24/22 12/25/22 12/26/22 12/27/22 23:59 23:59 23:59 23:59 Intake Total 1020 540 840 Output Total 1999 Balance -980 540 840 Meds/Results Medications: Active Medications Generic Name Dose Route Start Last Admin Trade Name Freq PRN Reason Stop Dose Admin Acetaminophen 1,000 mg 12/25/22 15:16 Acetaminophen 500 Mg Tablet PO Q6H PRN PAIN RATED 1-3 Hydrocodone Bitart/Acetaminophen 1 tab 12/25/22 10:40 Hydrocodone/Acetaminophen (*Crx) 5-325 Mg Tablet PO Q4H PRN Pain Rated 4-6 Atorvastatin Calcium 40 mg
[2022-12-27 19:29] LABS: Glucose Point of Care 111 mg/dl (65-105)
[2022-12-27] MEDS: traZODone HCL 50 MG TABLET PO (21:00)
[2022-12-27] MEDS: CALCIUM CARBONATE (TUMS) 500 MG (200 MG ELEMENTAL) 400 MG PO (21:00)
[2022-12-27] MEDS: polyethylene glycoL 3350 17 GM POWD.PACK PO (21:55)
[2022-12-27] MEDS: EPOETIN ALFA-EPBX 10,000 UNITS/ML VIAL 10000 UNITS SUB-Q (21:59)
[2022-12-28] VITALS (9 sets, daily range): BP systolic 163–178; BP diastolic 53–65; PULSE 66–96; RESP 16–20; TEMP 36.4–36.5; O2SAT 94–98
[2022-12-28 07:37] LABS: Glucose Point of Care 160 mg/dl (65-105)
[2022-12-28 08:34] LABS: Hematocrit 28.2 % (37.0-47.0); Hemoglobin 8.5 g/dL (12.0-15.0); Mean Corpuscular HGB Conc 30.1 g/dl (32-36); Mean Corpuscular Volume 99.6 fl (80-100); Mean Platelet Volume 11.3 fl (7.4-10.4); Platelet Count Result 135 k/mm3 (150-375); Red Blood Count 2.83 M/mm3 (4.2-5.4); White Blood Count 7.1 K/mm3 (4.5-10.0)
[2022-12-28] MEDS: ATORVASTATIN 40 MG TABLET PO (08:41)
[2022-12-28] MEDS: PANTOPRAZOLE 40 MG TABLET PO (08:42)
[2022-12-28] MEDS: CINACALCET 30 MG TABLET PO (08:42)
[2022-12-28] MEDS: SEVELAMER CARBONATE 800 MG TABLET PO ×2 (08:42→12:09)
[2022-12-28] MEDS: CYANOCOBALAMIN 500 MCG TABLET PO (08:42)
[2022-12-28] MEDS: carvediloL 6.25 MG TABLET PO (08:42)
[2022-12-28 08:58] LABS: Anion Gap 4 mmol/L (8-16); Blood Urea Nitrogen 22 mg/dL (7-17); Calcium 7.7 mg/dL (8.4-10.2); Carbon Dioxide 39 mmol/L (22-30); Chloride 97 mmol/L (98-107); Estimated Glomerular Filt Rate 14; Glucose 201 mg/dL (65-110); Potassium 3.7 mmol/L (3.4-5.0); Sodium 140 mmol/L (137-145)
[2022-12-28] MEDS: IRON SUCROSE COMPLEX 200 MG in SODIUM CHLORIDE 0.9% IV 50 ML 120 MG IVPB (09:19)
[2022-12-28] MEDS: ACETAMINOPHEN 500 MG TABLET 1000 MG PO (09:20)
--- NOTE | 2022-12-28 11:35 | PM.PNNEP ---
Progress Note: A&P Assessment and Plan (1) End stage renal disease on dialysis: Code(s): N18.6 - End stage renal disease; Z99.2 - Dependence on renal dialysis Status: Chronic Assessment and Plan: HD tomorrow continue dialysis schedule of M/W/F follow electrolytes, volume status, and clearance (2) Generalized weakness: Code(s): R53.1 - Weakness Status: Acute Assessment and Plan: presumably due to deconditioning and severe anemia on presentation clinical better/improved following PRBC transfusion continue supportive therapy (3) Anemia of chronic disease: Code(s): D63.8 - Anemia in other chronic diseases classified elsewhere Status: Acute Assessment and Plan: H/H quite low on admission PRBC transfusion per protocol s/p EGD -- findings of reflux esophagitis noted Epogen with HD on IV venofer follow trend of H/H (4) Hypertension: Qualifiers: Hypertension type: unspecified Qualified Code(s): I10 - Essential (primary) hypertension Code(s): I10 - Essential (primary) hypertension Status: Chronic Assessment and Plan: reasonable control at this time follow trend of hemodynamics (5) Type 2 diabetes mellitus: Qualifiers: Diabetes mellitus roasterman insulin use: without roasterman use Diabetes mellitus complication status: without complication Qualified Code(s): E11.9 - Type 2 diabetes mellitus without complications Code(s): E11.9 - Type 2 diabetes mellitus without complications Status: Chronic Assessment and Plan: follow accu-cheks glycemic control per hospitalists Will continue to follow. Subjective Date/time seen: 12/28/22 11:35 Interval history: Follow-up for end stage renal disease on hemodialysis. Tolerated hemodialysis treatment yesterday without any issues or problems; H/H stable if not improving by recent labs; generalized weakness seems to be doing better as well; no other issues/evetns overnight or earlier this AM. Exam Narrative: General: elderly and frail female in NAD Heart: normal S1 and S2; no rub Lungs: clear to auscultation Abdomen: soft, nontender, nondistended, positive bowel sounds Extremities: no cyanosis or clubbing; no edema Skin: warm and intact Objective Data Vital Signs Vital Signs: Vital Signs Temp Pulse Resp BP Pulse Ox O2 Del Method 12/28/22 10:00 73 12/28/22 08:00 96 12/28/22 08:00 Room Air 12/28/22 08:58 81 94 Room Air 12/28/22 08:42 77 12/28/22 08:00 97.5 F L 80 16 178/65 H 95 12/28/22 06:00 73 12/28/22 05:07 97.7 F 74 20 163/53 H 98 12/28/22 04:00 66 12/28/22 04:00 Room Air 12/28/22 02:00 69 12/28/22 00:00 Room Air 12/28/22 00:00 68 12/27/22 22:00 72 12/27/22 20:00 76 12/27/22 23:17 97.8 F 75 20 149/47 H 98 12/27/22 20:00 Room Air 12/27/22 20:23 97.8 F 84 20 159/54 H 98 Intake/Output Intake/Output: Intake & Output 12/25/22 12/26/22 12/27/22 12/28/22 23:59 23:59 23:59 23:59 Intake Total 1814 761 3325 840 Output Total 2000 1500 Balance -980 540 -480 840 Meds/Results Radiology Results: ITS Impressions Chest X-Ray 12/25/22 08:24 Impression: Clear lungs. Labs Labs: Laboratory Tests 12/28/22 08:27 12/28/22 08:27
--- NOTE | 2022-12-28 13:45 | PM.DS ---
DS: Admitting Diagnosis Discharge Date 12/28/22 Admitting Diagnosis gastritis DS: Discharge Diagnosis Discharge Diagnosis (1) Generalized weakness: Code(s): R53.1 - Weakness Status: Acute (2) Atrial fibrillation: Qualifiers: Atrial fibrillation type: unspecified Qualified Code(s): I48.91 - Unspecified atrial fibrillation Code(s): I48.91 - Unspecified atrial fibrillation Status: Chronic (3) End stage renal disease on dialysis: Code(s): N18.6 - End stage renal disease; Z99.2 - Dependence on renal dialysis Status: Chronic DS: Summary Hospital Course Hospital Course: (1) Anemia of chronic disease: ?Code(s): D63.8 - Anemia in other chronic diseases classified elsewhere ?Status:?Acute ?Assessment and Plan: Patient underwent EGD which showed reflux esophagitis and hiatal hernia.? Continue PPI.? Iron infusion ordered per Nephrology (2) End stage renal disease on dialysis: ?Code(s): N18.6 - End stage renal disease; Z99.2 - Dependence on renal dialysis ?Status:?Chronic ?Assessment and Plan: Dr. Suarez has been consulted. (3) Type 2 diabetes mellitus: ?Qualifiers: ?Diabetes mellitus senior care insulin use:?without senior care use??Diabetes mellitus complication status:?without complication? Qualified Code(s):?E11.9 - Type 2 diabetes mellitus without complications ?Code(s): E11.9 - Type 2 diabetes mellitus without complications ?Status:?Chronic ?Assessment and Plan: Accu-Cheks AC and HS and will check A1c. (4) Hyperlipidemia: ?Code(s): E78.5 - Hyperlipidemia, unspecified ?Status:?Chronic ?Assessment and Plan: Continue with atorvastatin (5) Hypertension: ?Qualifiers: ?Hypertension type:?unspecified? Qualified Code(s):?I10 - Essential (primary) hypertension ?Code(s): I10 - Essential (primary) hypertension ?Status:?Chronic ?Assessment and Plan: Continue with Coreg Monitor blood pressure patient is clinically stable and is being discharged home Time Spent with Patient Time attestation: Total time spent providing and/or coordinating discharge services: DS: Data Data Completed and Pending Completed studies during hospitalization: Pending at discharge 12/26/22 12:48 Surgical [PTH] Routine Labs on day of discharge: Labs from last 24 hours 12/28/22 12/28/22 12/27/22 08:27 07:18 19:24 WBC 7.1 RBC 2.83 L Hgb 8.5 L Hct 28.2 L MCV 99.6 MCH 30.0 MCHC 30.1 L RDW 18.0 H Plt Count 135 L MPV 11.3 H Sodium 140 Potassium 3.7 Chloride 97 L Carbon Dioxide 39 H Anion Gap 4 L BUN 22 H D Creatinine 3.30 H Estim Creat Clear Calc Not Reportable Estimated GFR 14 L Glucose 201 H POC Capillary Glucose 160 H 111 H Calcium 7.7 L Discharge Plan Discharge Consulting providers: Jacob Suarez; Venkata Abreu Discharging Clinician: Abram Smith Anticipated Discharge Date/Time: 12/28/22 11:29 Patient Disposition: Home, Self-Care Activity: no preference Diet: heart healthy Patient Instructions: Peptic Ulcer (DC), Gastrointestinal Bleeding (DC), Dialysis Diet (DC) Stand Alone Forms: General Discharge Information Follow-up/Referrals: David Coppola MD [Primary Care Provider] - Jacob Suarez MD [Physician] - Discharge Medications: New pantoprazole 40 mg Tablet,Delayed Release (Dr/Ec) 40 mg PO Q12HR Qty: 60 0RF Continued atorvastatin 40 mg tablet 40 mg PO DAILY lidocaine-prilocaine 2.5-2.5 % cream 1 g topical ONCE Patient Comments: For Dialysis fistula Rx Instructions: apply per 10 cm2 of skin for 15 mins . immediately before procedure calcium carbonate [Tums] 200 mg calcium (500 mg) tablet,chewable 400 mg PO QHS Renal Caps 1 mg capsule 1 cap PO DAILY cinacalcet 30 mg tablet 30 mg PO DAILY sevelamer HC
[2022-12-28 23:31] LABS: Hepatitis B Core Ab Total Reactive (Nonreactive)
== END 2022-12-28 13:19 | disposition home or self-care (01) ==
LOC: ANHED 10:38 → ANHIMU 10:56
PROVIDERS: Chiropractor; Internal Medicine Gastroenterology; Internal Medicine Nephrology; Nurse Practitioner; Admitting Provider Internal Medicine; Emergency Provider Emergency Medicine; PCP Family Medicine; Visit Provider Hospitalist
PROC: 0DJ08ZZ Inspection of Upper Intestinal Tract, Via Natural or Artificial Opening Endoscopic (ICD-10-PCS; CPT 43235; principal; 2022-12-26 15:30)
DX: K21.01 Gastro-esophageal reflux disease with esophagitis, with bleeding (principal); K44.9 Diaphragmatic hernia without obstruction or gangrene; E87.5 Hyperkalemia; I12.0 Hypertensive chronic kidney disease with stage 5 chronic kidney disease or end stage renal disease; E11.22 Type 2 diabetes mellitus with diabetic chronic kidney disease; D63.1 Anemia in chronic kidney disease; E11.65 Type 2 diabetes mellitus with hyperglycemia; N18.6 End stage renal disease; Z99.2 Dependence on renal dialysis; R94.31 Abnormal electrocardiogram [ECG] [EKG]; I27.20 Pulmonary hypertension, unspecified; E78.5 Hyperlipidemia, unspecified; M48.061 Spinal stenosis, lumbar region without neurogenic claudication; M81.0 Age-related osteoporosis without current pathological fracture; D53.1 Other megaloblastic anemias, not elsewhere classified; Z95.818 Presence of other cardiac implants and grafts; Z87.11 Personal history of peptic ulcer disease; Z79.85 Long-term (current) use of injectable non-insulin antidiabetic drugs; Z79.1 Long term (current) use of non-steroidal anti-inflammatories (NSAID); Z79.84 Long term (current) use of oral hypoglycemic drugs; Z79.4 Long term (current) use of insulin; Z79.52 Long term (current) use of systemic steroids; Z79.899 Other long term (current) drug therapy
CPT/HCPCS: 43239; 36415; 36430; 71046; 80048; 80053; 80069; 82607; 82728; 82746; 82948; 83036; 83540; 83550; 83605; 83735; 83880; 84100; 84484; 85014; 85018; 85025; 85027; 85610; 85730; 86704; 86706; 86850; 86900; 86901; 86923; 87340; 88305; 93005; 96365; 96366; 96375; 99285; A9270; C9113; G0257; G0378; J1644; J1756; J2704; J7030; J7040; J7050; P9016; Q5105

== ENCOUNTER 2023-04-04 14:54 | Observation (INO) | payer MEDICARE, MEDICAID, SELFPAY ==
[2023-04-04] VITALS (8 sets, daily range): BP systolic 106–153; BP diastolic 29–74; PULSE 60–72; RESP 16–28; TEMP 35.8–36.7; O2SAT 96–98; BMI 28.6
[2023-04-04 15:13] LABS: Basophils Absolute Auto 0.1 K/mm3 (0.0-0.1); Basophils Percent Auto 0.8 % (0.2-1.2); Eosinophils Absolute Auto 0.1 K/mm3 (0-0.3); Eosinophils Percent Auto 1.5 % (0-4.4); Hematocrit 28.5 % (37.0-47.0); Hemoglobin 8.5 g/dL (12.0-15.0); Immature Granulocyte Absolute 0.02 K/mm3 (0.00-0.031); Immature Granulocyte Percent A 0.3 % (0-0.5); Lymphocytes Percent Auto 21.4 % (18.3-44.2); Mean Corpuscular HGB Conc 29.8 g/dl (32-36); Mean Corpuscular Hemoglobin 29.8 pg (26-34); Mean Platelet Volume 11.2 fl (7.4-10.4); Monocytes Absolute Auto 0.7 K/mm3 (0.1-0.6); Neutrophils Absolute Auto 3.9 K/mm3 (1.3-6.7); Platelet Count Result 135 k/mm3 (150-375); Red Blood Count 2.85 M/mm3 (4.2-5.4); Red Cell Distribution Width 15.7 % (11.5-14.5); White Blood Count 6.1 K/mm3 (4.5-10.0)
[2023-04-04 15:27] LABS: Alanine Aminotransferase 18 U/L (6-35); Alkaline Phosphatase 249 U/L (38-126); Anion Gap 6 mmol/L (8-16); Aspartate Amino Transferase 35 U/L (14-36); Bilirubin,Total 0.7 mg/dL (0.2-1.3); Blood Urea Nitrogen 22 mg/dL (7-17); Calcium 8.8 mg/dL (8.4-10.2); Carbon Dioxide 30 mmol/L (22-30); Chloride 95 mmol/L (98-107); Estimated Glomerular Filt Rate 27; Glucose 144 mg/dL (65-110); Potassium 3.1 mmol/L (3.4-5.0); Sodium 131 mmol/L (137-145)
[2023-04-04 15:29] LABS: Hypochromasia 1+ (NORMAL); Ovalocytes 1+ (NORMAL); Schistocytes None Seen (NORMAL)
[2023-04-04 15:58] LABS: Partial Thromboplastin Time 31.5 SECONDS (22.3-36.8)
--- NOTE | 2023-04-04 16:25 | ED.GIBLEED ---
HPI - GI Bleed General Chief complaint: GI Bleed Stated complaint: hbg recheck Time Seen by Provider: 04/04/23 16:06 History of Present Illness HPI Narrative: Patient sent from dialysis for low hemoglobin; patient reports last 3 days she has noted some darker stools, initially she thought was because she had been eating spinach, but she is not eating spinach today and stools are still slightly dark. She has had similar episodes in the past. No nausea or vomiting, she does have some vague abdominal discomfort. Related Data Home Medications Medication Instructions Recorded Confirmed cyanocobalamin (vitamin B-12) 500 500 mcg PO DAILY 06/12/19 12/25/22 mcg tablet acetaminophen 500 mg tablet 1,000 mg PO Q6H PRN Pain 02/20/20 12/25/22 (Acetaminophen Extra Strength) cinacalcet 30 mg tablet 30 mg PO DAILY 03/29/20 12/25/22 sevelamer HCl 800 mg tablet 800 mg PO TID 03/29/20 12/25/22 atorvastatin 40 mg tablet 40 mg PO DAILY 10/25/21 12/25/22 calcium carbonate 200 mg calcium 400 mg PO QHS 10/25/21 12/25/22 (500 mg) chewable tablet (Tums) lidocaine-prilocaine 2.5 %-2.5 % 1 g topical ONCE 10/25/21 12/26/22 topical cream vitamin B complex and vitamin C 1 cap PO DAILY 10/25/21 12/26/22 no.20-folic acid 1 mg capsule (Renal Caps) carvedilol 12.5 mg tablet (Coreg) 6.25 mg PO DAILY 05/11/22 12/25/22 Allergies Allergy/AdvReac Type Severity Reaction Status Date / Time cephalexin Allergy Mild Rash Verified 01/29/23 15:22 enalapril Allergy Unknown cough Verified 01/29/23 15:22 pioglitazone Allergy Unknown Unknown Verified 01/29/23 15:22 tramadol Allergy Unknown hallucinati Verified 01/29/23 15:22 ons gabapentin Allergy Hallucinati Verified 01/29/23 15:22 ng cefazolin AdvReac Mild nausea/dizz Verified 01/29/23 15:22 iness Review of Systems Review of Systems: CONST: No fever. HEENT: No sore throat C/V: No chest pain RESP: No cough GI: Reports dark stools : No dysuria. M/S: No joint pain. SKIN: No rash. NEURO: [No headache or focal numbness or weakness] PSYCH: [No depression] [facility] Past Medical History Medical History Acute on chronic blood loss anemia Amputated toe of left foot Anemia of chronic disease Megaloblastic anemia Anemia of chronic disease AV fistula Left upper extremity Closed fracture of lateral portion of right tibial plateau (~2014) End stage renal disease on dialysis Dialysis days are Sunday, Sunday, and Sunday. She is on the transplant list at [facility]. Hiatal hernia Hyperlipidemia Hypertension Occult blood in stools Osteoarthritis of both knees Osteoporosis PAD (peripheral artery disease) With history of midfoot amputation Paroxysmal atrial fibrillation Pulmonary hypertension Echocardiogram August 2019: EF 65-70 %, indeterminate left ventricular diastolic function, mild biatrial enlargement, mild mitral valve regurgitation, moderate tricuspid regurgitation, mild pulmonary hypertension with RVSP of 39 Spinal stenosis at L4-L5 level High-grade central canal stenosis noted on MRI February 2017 Staphylococcal septicemia (~2013) Thoracic ascending aortic aneurysm 4.[address] scan from August 2019 Type 2 diabetes mellitus Hemoglobin A1c was 6.6 in July 2019. Surgical History Surgical History Amputation at midfoot 5th digit right footAnd the great toe on the left History of arthroplasty of right ankle History of arthroscopy (~12/07/12) wrist History of bilateral cataract extraction History of colonoscopy (~12/02/15) History of knee replacement (~2015) right Presence of Watchman left atrial appendage closure device Family History Family History Father Hypertension Heart disease Mother Diabetes mellitus Hypertension Tobacco dependence Lung cancer Sibling Heart disease Socia
[2023-04-04] MEDS: PANTOPRAZOLE SODIUM IV 40 MG VIAL IV PUSH (16:43)
--- NOTE | 2023-04-04 17:44 | PM.IMHP ---
H&P: HPI History of Present Illness Date/Time: 04/04/23 19:00 Chief Complaint: Dark stools. Narrative: This is a very pleasant 77-year-old female with history of gastritis, chronic anemia, hypertension, peripheral vascular disease, end-stage renal disease on hemodialysis, paroxysmal atrial fibrillation status post Watchman, and type 2 diabetes mellitus who presented to the emergency department via private vehicle for evaluation of dark stools. The patient provides the following history. The last several days she has noticed that her stools are dark black, similar to when she had occult GI bleeding in December 2022 at which time an upper endoscopy showed reflux esophagitis. Following dialysis today she came in for evaluation as she has been having some epigastric discomfort and increasing indigestion. She denies NSAID and caffeine use. Hemoglobin and hematocrit are relatively stable when compared to previous labs. Per ED physician her stool was soft/brown with a tiny spot of bright red blood. Chemistries shows some minor electrolyte abnormalities including a sodium of 131 and a potassium of 3.1. Random glucose was 144. The rest of her labs were pretty unremarkable. She is being admitted in this setting for overnight monitoring and GI consultation tomorrow. Review of Systems Review of Systems: Twelve systems were reviewed. No fever, chills, or sweats. No recent cold or flu symptoms. No chest pain or shortness of breath. Except as documented, all other systems were reviewed and are negative. REPLACED BY [facility] Past Medical History Medical History (Updated 04/04/23 @ 22:08 by Leila Garcia PA-C) Anemia of chronic disease Megaloblastic anemia AV fistula Left upper extremity Closed fracture of lateral portion of right tibial plateau (~2014) End stage renal disease on dialysis Dialysis days are Sunday, Sunday, and Sunday. She is on the transplant list at [place]. Hiatal hernia Hyperlipidemia Hypertension Osteoarthritis of both knees Osteoporosis Paroxysmal atrial fibrillation Peripheral arterial disease History mid foot amputation. Pulmonary hypertension Echocardiogram August 2019: EF 65-70 %, indeterminate left ventricular diastolic function, mild biatrial enlargement, mild mitral valve regurgitation, moderate tricuspid regurgitation, mild pulmonary hypertension with RVSP of 39 Spinal stenosis at L4-L5 level High-grade central canal stenosis noted on MRI February 2017 Staphylococcal septicemia (~2013) Thoracic ascending aortic aneurysm 4.[address] scan from August 2019 Type 2 diabetes mellitus Hemoglobin A1c was 6.6 in July 2019. Surgical History Surgical History (Updated 04/04/23 @ 22:04 by Leila Garcia PA-C) Amputated toe of left foot Amputation at midfoot 5th digit right footAnd the great toe on the left History of arthroplasty of right ankle History of arthroscopy (~12/07/12) wrist History of bilateral cataract extraction History of colonoscopy (~12/02/15) History of knee replacement (~2015) right Presence of Watchman left atrial appendage closure device Family History Family History Father Hypertension Heart disease Mother Diabetes mellitus Hypertension Tobacco dependence Lung cancer Sibling Heart disease Social History Social History (Updated 04/04/23 @ 22:04 by Leila Garcia PA-C) Social History: The patient is and lives in [place]. She is originally from [place]. 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 She has 2 daughters who live in [place]. She has 1 son who lives in [facility] . She designates her daughters as her surrogate decision makers. She is a lifelong nonsmoker. No alcohol or drug abuse. Primary care physician: Dr. David Coppola Code status: Full code Smoking status: Never smoker Second hand tobacco smoke exposure: No Alcohol
[2023-04-04 18:19] LABS: Glucose Point of Care 176 mg/dl (65-105)
--- NOTE | 2023-04-04 18:33 | ADMGEN ---
This patient, Shasta Obando, was admitted to [facility] Surg Room 321-01 at 1810. Patient/family oriented to hospital policies and general routines including ID bracelet, bed and alarms, visiting hours, pain management, procedures, bathroom and other care routines, personal items, smoking policy, room service/diet, and visiting hours. Information on how to activate the Rapid Response Team has been discussed. Patient/Family are encouraged to report perceived risks to care and to ask questions if they do not understand what they are told or what they should do.
[2023-04-04] MEDS: PANTOPRAZOLE 40 MG TABLET PO (22:42)
[2023-04-04] MEDS: CALCIUM CARBONATE (TUMS) 500 MG (200 MG ELEMENTAL) PO (22:42)
[2023-04-04] MEDS: traZODone HCL 50 MG TABLET PO (22:42)
[2023-04-04] MEDS: INSULIN ASPART (*BKC) 100 UNITS/ML SUB-Q (22:44)
[2023-04-04] MEDS: ACETAMINOPHEN 325 MG TABLET 650 MG PO (22:47)
[2023-04-04 22:48] LABS: Hematocrit 26.2 % (37.0-47.0); Hemoglobin 8.1 g/dL (12.0-15.0)
[2023-04-05] VITALS (11 sets, daily range): BP systolic 112–175; BP diastolic 50–76; PULSE 55–78; RESP 18–26; TEMP 36.1–37.2; O2SAT 90–100
[2023-04-05 04:05] LABS: Glucose Point of Care 279 mg/dl (65-105)
[2023-04-05 06:13] LABS: Hematocrit 29.5 % (37.0-47.0); Hemoglobin 8.9 g/dL (12.0-15.0); Mean Corpuscular HGB Conc 30.2 g/dl (32-36); Mean Corpuscular Hemoglobin 29.9 pg (26-34); Mean Platelet Volume 11.7 fl (7.4-10.4); Platelet Count Result 157 k/mm3 (150-375); Red Blood Count 2.98 M/mm3 (4.2-5.4); Red Cell Distribution Width 15.9 % (11.5-14.5)
[2023-04-05 06:27] LABS: Anion Gap 7 mmol/L (8-16); Blood Urea Nitrogen 33 mg/dL (7-17); Calcium 8.3 mg/dL (8.4-10.2); Carbon Dioxide 31 mmol/L (22-30); Chloride 94 mmol/L (98-107); Estimated Glomerular Filt Rate 16; Glucose 157 mg/dL (65-110); Magnesium 2.2 mg/dL (1.6-2.3); Phosphorus 2.8 mg/dL (2.5-4.5); Potassium 3.6 mmol/L (3.4-5.0); Sodium 132 mmol/L (137-145)
--- NOTE | 2023-04-05 06:57 | WPDGICN ---
Assessment and Plan Assessment and plan (1) Chronic anemia: Code(s): D64.9 - Anemia, unspecified Status: Acute Assessment and Plan: Patient with chronic kidney disease this appears to account for chronic anemia. Because of occult blood in stools and history of black stools along with epigastric pain will plan EGD to assess for possible ulcer. She previously has had esophagitis. Would recommend maintaining patient on pantoprazole. Avoid NSAIDs. Further recommendations may be given after endoscopy. (2) Occult blood in stools: Code(s): R19.5 - Other fecal abnormalities Status: Acute Assessment and Plan: Patient with occult blood in stool. She did has recently had epigastric pain. Stool is described as black and melenic in nature. Will plan EGD. Further recommendations will be given after endoscopy. (3) ESRD on dialysis: Code(s): N18.6 - End stage renal disease; Z99.2 - Dependence on renal dialysis Status: Acute Assessment and Plan: Patient appears to have chronic anemia on the basis of end-stage renal disease. Followed by Dr. Suarez. GI Consult Note Consult date/time: 04/05/23 06:57 Reason for consult: melena, chronic anemia HPI: Shasta Obando is a 77 year old female presented to the emergency room after dialysis last evening. Because of epigastric pain and black stool. Patient has end-stage renal disease on dialysis. She has noticed blackish stools for several days. She did have some epigastric discomfort. For this reason she presented the emergency room found have Hemoccult-positive stools. Patient does have chronic anemia on the basis of kidney disease. She had similar episode earlier this year he EGD was performed in 5 she was found to have gastritis and esophagitis. Patient requires dialysis routinely. Patient states the pain is improved this morning. She has been monitored overnight. Review of Systems Review of Systems: Review of systems noncontributory. [facility] Past Medical History Medical History (Updated 04/04/23 @ 22:08 by Leila Garcia PA-C) Anemia of chronic disease Megaloblastic anemia AV fistula Left upper extremity Closed fracture of lateral portion of right tibial plateau (~2014) End stage renal disease on dialysis Dialysis days are Sunday, Sunday, and Sunday. She is on the transplant list at [place]. Hiatal hernia Hyperlipidemia Hypertension Osteoarthritis of both knees Osteoporosis Paroxysmal atrial fibrillation Peripheral arterial disease History mid foot amputation. Pulmonary hypertension Echocardiogram August 2019: EF 65-70 %, indeterminate left ventricular diastolic function, mild biatrial enlargement, mild mitral valve regurgitation, moderate tricuspid regurgitation, mild pulmonary hypertension with RVSP of 39 Spinal stenosis at L4-L5 level High-grade central canal stenosis noted on MRI February 2017 Staphylococcal septicemia (~2013) Thoracic ascending aortic aneurysm 4.[address] scan from August 2019 Type 2 diabetes mellitus Hemoglobin A1c was 6.6 in July 2019. Surgical History Surgical History (Updated 04/04/23 @ 22:04 by Leila Garcia PA-C) Amputated toe of left foot Amputation at midfoot 5th digit right footAnd the great toe on the left History of arthroplasty of right ankle History of arthroscopy (~12/07/12) wrist History of bilateral cataract extraction History of colonoscopy (~12/02/15) History of knee replacement (~2015) right Presence of Watchman left atrial appendage closure device Family History Family History Father Hypertension Heart disease Mother Diabetes mellitus Hypertension Tobacco dependence Lung cancer Sibling Heart disease Social History Social History (Updated 04/04/23 @ 22:04 by Leila Garcia PA-C) Social History: The patient is and lives in [place].
[2023-04-05 07:45] LABS: Glucose Point of Care 167 mg/dl (65-105)
[2023-04-05] MEDS: CYANOCOBALAMIN 500 MCG TABLET PO (08:55)
[2023-04-05] MEDS: carvediloL 6.25 MG TABLET PO (08:55)
[2023-04-05] MEDS: ATORVASTATIN 40 MG TABLET PO (08:55)
[2023-04-05] MEDS: CINACALCET 30 MG TABLET PO (08:55)
[2023-04-05] MEDS: VITAMIN B CMPLX/VIT C/FOLIC AC 1 CAPSULE 1 CAP PO (08:57)
[2023-04-05] MEDS: SEVELAMER CARBONATE 800 MG TABLET PO (08:57)
[2023-04-05] MEDS: PANTOPRAZOLE 40 MG TABLET PO (08:57)
[2023-04-05] MEDS: ACETAMINOPHEN 325 MG TABLET 650 MG PO (09:07)
[2023-04-05] MEDS: PANTOPRAZOLE SODIUM IV 40 MG VIAL IV PUSH ×2 (10:44→21:48)
[2023-04-05 11:28] LABS: Glucose Point of Care 169 mg/dl (65-105)
--- NOTE | 2023-04-05 12:27 | PM.CNNEP ---
Assessment and Plan Assessment and plan (1) End stage renal disease: Code(s): N18.6 - End stage renal disease Status: Chronic Assessment and Plan: HD tomorrow and continue M/W/F schedule follow electrolytes, volume status, and clearance (2) Anemia: Qualifiers: Anemia type: unspecified type Qualified Code(s): D64.9 - Anemia, unspecified Code(s): D64.9 - Anemia, unspecified Status: Chronic Assessment and Plan: partly related to ESRD however, concern is for possible GI loss Gastroenterology following -- possible EGD Epogen with HD follow trend of H/H (3) Hypertension: Qualifiers: Hypertension type: unspecified Qualified Code(s): I10 - Essential (primary) hypertension Code(s): I10 - Essential (primary) hypertension Status: Chronic Assessment and Plan: reasonable control folloe hemodynamics (4) Type 2 diabetes mellitus: Qualifiers: Diabetes mellitus intermediate insulin use: without intermediate use Diabetes mellitus complication status: without complication Qualified Code(s): E11.9 - Type 2 diabetes mellitus without complications Code(s): E11.9 - Type 2 diabetes mellitus without complications Status: Chronic Assessment and Plan: follow accuchecks glycemic control per hospitalists I will continue to follow the patient with you while she remains hospitalized and make further recommendations as needed. Thank you for allowing me to participate in the care of this patient. History of Present Illness Reason for Consult Consult date: 04/05/23 Reason for consult: end stage renal disease Chief Complaint Chief complaint: LGIB,ANEMIA History of Present Illness Narrative: The patient is a 77-year-old female with a past medical history as outlined below who presented to [facility] Emergency room yesterday afternoon for further evaluation of dark tarry stools. The patient reports that for the last several days she has noticed that her stools are black/dark and tarry which was similar in appearance when she had previous issues/problems with GI bleeding. This occurred about 3 months ago when she was hospitalized here at [facility] and at that time, an upper endoscopy showed reflux esophagitis. She completed her dialysis treatment yesterday and then came into the ER for further assessment of this finding. Other associated symptoms included epigastric discomfort and increasing indigestion. Workup and evaluation emergency room demonstrated labs consistent with her known history of end-stage renal disease and her hemoglobin/hematocrit was not all that different than when she was last hospitalized here. She reports no use of NSAIDs or increased caffeine use and denies any dizziness, lightheadedness, palpitations, shortness of breath, chest pain, or diaphoresis. The ER physician did a rectal exam an her stool was soft brown with a tiny spot of bright red blood. Given her previous history of GI bleeding that did require packed red blood cell transfusion, she was admitted to the hospital for further evaluation and therapy. Since her admission, her hemoglobin/hematocrit has remained relatively stable but she was seen by Gastroenterology earlier this morning with recommendations to proceed with an EGD given her known history of GI bleed in the past in association with reflux esophagitis and a concern for possible gastric ulcer. Renal consultation was requested due to her end-stage renal disease. The patient normally dialyzes on a Sunday, Sunday, Sunday schedule under the care of Dr. Jacob Suarez at [facility]. As already mentioned above, she did complete her dialysis treatment yesterday prior to her evaluation in the emergency room. from a dialysis perspective, she is compliant with her dialysis treatments and usually does not have any significant fluid gains in between her dialysis treatmen
[2023-04-05] MEDS: LACTATED RINGERS 1,000 ML 150 ML IV CONT (13:28)
[2023-04-05 13:39] LABS: Glucose Point of Care 157 mg/dl (65-105)
--- NOTE | 2023-04-05 13:43 | PM.IMPN ---
Progress Note: A&P Assessment and Plan (1) Paroxysmal atrial fibrillation: Code(s): I48.0 - Paroxysmal atrial fibrillation Status: Acute (2) Chronic anemia: Code(s): D64.9 - Anemia, unspecified Status: Acute (3) Dark stools: Code(s): R19.5 - Other fecal abnormalities Status: Acute (4) Acute lower gastrointestinal bleeding: Code(s): K92.2 - Gastrointestinal hemorrhage, unspecified Status: Acute (5) End stage renal disease on dialysis: Code(s): N18.6 - End stage renal disease; Z99.2 - Dependence on renal dialysis Status: Chronic Plan ?77-year-old female with history of gastritis, chronic anemia, hypertension, peripheral vascular disease, end-stage renal disease on hemodialysis, paroxysmal atrial fibrillation status post Watchman, and type 2 diabetes mellitus who presented to the emergency department for evaluation of dark stools.? 1. Acute on chronic anemia: H&H stable at the moment Documented melena, positive fecal occult blood Continue with PPI IV Appreciate GI consult Plan for EGD later this afternoon NPO No antiplatelets, NSAIDs, anticoagulants 2. ESRD on hemodialysis: Sunday, Sunday, Fridays her usual dialysis days Seems to be stable Nephrology has been consulted Recheck BMP in a.m. 3. Diabetes mellitus: Blood glucose checked t.i.d. a.c. and HS Continue with Sliding scale insulin Continue with Januvia Adjust insulin dose as needed 4. DVT prophylaxis: SCDs 5. Code status: Full 6. Disposition: Pending improvement Time Spent With Patient Time with patient: 15 - 25 minutes Subjective Date/time seen: 04/05/23 13:43 Interval history: Complains of melena Denies abdominal pain Denies nausea vomiting Review of Systems Review of Systems: All systems reviewed & are unremarkable except as noted in HPI and below Exam Narrative: General: A well-developed, HEENT: PERRL, EOMI. Sclera anicteric. Oral mucosa moist. Neck: Supple. Respiratory: Lungs are clear to auscultation bilaterally. Cardiovascular: Regular rate and rhythm with S1-S2. Systolic murmur at the upper sternal border. Gastrointestinal: Abdomen is soft, nontender, and nondistended with positive bowel sounds. Skin: Warm and dry. No rash or lesions on limited exam. Extremities: No cyanosis, clubbing, or significant edema. Nonfunctioning left upper extremity fistula. Right fistula with palpable thrill and bruit. Neurological: Alert. Cranial nerves 2-12 are grossly intact. Psychiatric: Pleasant and cooperative with normal mood and affect. Objective Data Vital Signs Vital Signs: Vital Signs - 24 hr 04/04/23 14:57 04/04/23 16:41 04/04/23 16:45 Temperature 98.0 F Pulse Rate 72 66 71 Respiratory Rate 18 18 22 H Blood Pressure 153/29 H Pulse Oximetry 98 98 Oxygen Delivery Room Air 04/04/23 17:00 04/04/23 17:17 04/04/23 17:39 Temperature Pulse Rate 65 63 60 Respiratory Rate 28 H 22 H 22 H Blood Pressure Pulse Oximetry 96 98 97 Oxygen Delivery 04/04/23 18:37 04/04/23 17:39 04/04/23 20:00 Temperature Pulse Rate 64 Respiratory Rate 16 Blood Pressure 106/38 L Pulse Oximetry 96 96 Oxygen Delivery Room Air Room Air 04/04/23 22:00 04/05/23 06:00 04/05/23 08:17 Temperature 96.4 F L 96.9 F L Pulse Rate 66 72 Respiratory Rate 18 18 Blood Pressure 136/74 159/75 H Pulse Oximetry 96 92 92 Oxygen Delivery Room Air 04/05/23 08:55 04/05/23 08:00 04/05/23 13:27 Temperature 97.5 F L Pulse Rate 78 55 L Respiratory Rate 20 Blood Pressure 155/67 H Pulse Oximetry 90 Oxygen Delivery Room Air Room Air Intake/Output Intake/Output: Intake & Output 04/02/23 04/03/23 04/04/23 04/05/23 23:59 23:59 23:59 23:59 Intake Total 50 Balance 50 Meds/Results Medications: Active Medications Generic Name Dose Route Start Last Admin Trade Name Freq PRN Reason Stop Dose Admin Acetaminophen 65
--- NOTE | 2023-04-05 13:51 | WPDANESEPPF ---
Anes - Initial Pre Proc Eval Procedure: Operation Date: 04/05/23 15:15 Proposed Procedures p Esophagogastroduodenoscopy - Robles Starr MD Date/Time: 04/05/23 13:51 Surgeon: Betsey Rodney MD Pre Op Diagnosis: LGIB,ANEMIA Patient Data Age: 77 Gender: F Height: 1.32 m Weight: 50 kg Last Vital Signs Temp 97.5 F L 04/05/23 13:27 Pulse 55 L 04/05/23 13:27 Resp 20 04/05/23 13:27 BP 155/67 H 04/05/23 13:27 Pulse Ox 90 04/05/23 13:27 O2 Del Method Room Air 04/05/23 13:27 Allergies Allergy/AdvReac Type Severity Reaction Status Date / Time cephalexin Allergy Mild Rash Verified 01/29/23 15:22 enalapril Allergy Unknown cough Verified 01/29/23 15:22 pioglitazone Allergy Unknown Unknown Verified 01/29/23 15:22 tramadol Allergy Unknown hallucinati Verified 01/29/23 15:22 ons gabapentin Allergy Hallucinati Verified 01/29/23 15:22 ng cefazolin AdvReac Mild nausea/dizz Verified 01/29/23 15:22 iness Home Medications Medication Instructions Recorded Confirmed Type cyanocobalamin (vitamin B-12) 500 500 mcg PO DAILY 06/12/19 04/04/23 History mcg tablet acetaminophen 500 mg tablet 1,000 mg PO Q6H PRN Pain 02/20/20 04/04/23 History (Acetaminophen Extra Strength) cinacalcet 30 mg tablet 30 mg PO DAILY 03/29/20 04/04/23 History sevelamer HCl 800 mg tablet 800 mg PO TID 03/29/20 04/04/23 History liraglutide 0.6 mg/0.1 mL (18 mg/3 See Rx Instructions .Route 06/08/21 04/04/23 Rx mL) subcutaneous pen injector .COMPLEX #18 mL (Victoza 2-Agustín) blood sugar diagnostic #500 ea 07/18/21 04/04/23 Rx atorvastatin 40 mg tablet 40 mg PO DAILY 10/25/21 04/04/23 History calcium carbonate 200 mg calcium 400 mg PO QHS 10/25/21 04/04/23 History (500 mg) chewable tablet (Tums) vitamin B complex and vitamin C 1 cap PO DAILY 10/25/21 04/04/23 History no.20-folic acid 1 mg capsule (Renal Caps) pen needle, diabetic 32 gauge x #100 ea 02/06/22 04/04/23 Rx 1/5 insulin degludec 100 unit/mL (3 See Rx Instructions .Route 03/06/22 04/04/23 Rx mL) subcutaneous pen (Tresiba .COMPLEX #15 mL FlexTouch U-100 insulin) carvedilol 12.5 mg tablet (Coreg) 6.25 mg PO DAILY 05/11/22 04/04/23 History sitagliptin phosphate 100 mg 100 mg PO DAILY #90 tabs 08/28/22 04/04/23 Rx tablet (Januvia) trazodone 50 mg tablet 50 mg PO QHS #90 tabs 12/13/22 04/04/23 Rx foldiing walker #1 ea 01/11/23 04/04/23 Rx denosumab 60 mg/mL subcutaneous 60 mg subcut [id number] #1 mL 01/19/23 04/04/23 Rx syringe (Prolia) pantoprazole 40 mg tablet,delayed 40 mg PO Q12HR #60 tabs 01/31/23 04/04/23 Rx release ergocalciferol (vitamin D2) 1,250 See Rx Instructions .Route 02/16/23 04/04/23 Rx mcg (50,000 unit) capsule .COMPLEX #13 caps Laboratory Tests 04/04/23 04/04/23 04/04/23 15:01 15:02 15:34 WBC 6.1 K/mm3 (4.5-10.0) RBC 2.85 L M/mm3 (4.2-5.4) Hgb 8.5 L g/dL (12.0-15.0) Hct 28.5 L % (37.0-47.0) MCV 100.0 fl (80-100) MCH 29.8 pg (26-34) MCHC 29.8 L g/dl (32-36) RDW 15.7 H % (11.5-14.5) Plt Count 135 L k/mm3 (150-375) MPV 11.2 H fl (7.4-10.4) Immature Gran % (Auto) 0.3 % (0-0.5) Neut % (Auto) 64.0 % (45.5-73.1) Lymph % (Auto) 21.4 % (18.3-44.2) [place] % (Auto) 12.0 H % (2.6-8.5) Eos % (Auto) 1.5 % (0-4.4) Baso % (Auto) 0.8 % (0.2-1.2) Lymph # (Auto) 1.30 K/mm3 (0.9-3.2) [place] # (Auto) 0.7 H K/mm3 (0.1-0.6) Eos # (Auto) 0.1 K/mm3 (0-0.3) Baso # (Auto) 0.1 K/mm3 (0.0-0.1) Abs Immat Gran (auto) 0.02 K/mm3 (0.00-0.031) Absolute Neuts (auto) 3.9 K/mm3 (1.3-6.7) Absolute Nucleated RBC 0.0 K/mm3 (0.0-0.012) Nucleated RBC % 0.0 % (0.0-0.2) Platelet Estimate Slightly decreased (Adequate) Hypochromasia 1+ (
[2023-04-05] MEDS: SODIUM CHLORIDE 0.9% IV 500 ML 25 ML IV CONT (14:20)
--- NOTE | 2023-04-05 14:41 | SUR.OPER ---
pt switched to NS for LR per protocol for dialysis pt.
[2023-04-05 15:00] LABS: Glucose Point of Care 150 mg/dl (65-105)
[2023-04-05 16:28] LABS: Glucose Point of Care 151 mg/dl (65-105)
[2023-04-05] MEDS: PEG (High)/E-LYTE SOLN 4,000 ML BTL 4000 ML PO (17:18)
[2023-04-05 21:29] LABS: Glucose Point of Care 170 mg/dl (65-105)
[2023-04-05] MEDS: CALCIUM CARBONATE (TUMS) 500 MG (200 MG ELEMENTAL) PO (21:48)
[2023-04-06] VITALS (21 sets, daily range): BP systolic 128–183; BP diastolic 35–108; PULSE 65–91; RESP 12–25; TEMP 35.9–37.4; O2SAT 96–100
--- NOTE | 2023-04-06 05:43 | PC.NURSE ---
Spoke with Dr. Donovan about patient's elevated BP this morning. Instructed to give morning carvedilol early (now).
[2023-04-06] MEDS: carvediloL 6.25 MG TABLET PO (05:49)
[2023-04-06 06:49] LABS: Basophils Percent Auto 0.5 % (0.2-1.2); Eosinophils Absolute Auto 0.1 K/mm3 (0-0.3); Eosinophils Percent Auto 0.9 % (0-4.4); Hematocrit 29.6 % (37.0-47.0); Hemoglobin 8.9 g/dL (12.0-15.0); Immature Granulocyte Absolute 0.04 K/mm3 (0.00-0.031); Immature Granulocyte Percent A 0.5 % (0-0.5); Lymphocytes Absolute Auto 1.27 K/mm3 (0.9-3.2); Lymphocytes Percent Auto 15.8 % (18.3-44.2); Mean Corpuscular HGB Conc 30.1 g/dl (32-36); Mean Corpuscular Hemoglobin 29.8 pg (26-34); Mean Platelet Volume 11.1 fl (7.4-10.4); Monocytes Absolute Auto 0.8 K/mm3 (0.1-0.6); Neutrophils Absolute Auto 5.8 K/mm3 (1.3-6.7); Neutrophils Percent Auto 72.3 % (45.5-73.1); Platelet Count Result 167 k/mm3 (150-375); Red Blood Count 2.99 M/mm3 (4.2-5.4); Red Cell Distribution Width 16.2 % (11.5-14.5)
[2023-04-06 06:58] LABS: Anion Gap 11 mmol/L (8-16); Blood Urea Nitrogen 42 mg/dL (7-17); Calcium 7.6 mg/dL (8.4-10.2); Carbon Dioxide 28 mmol/L (22-30); Chloride 92 mmol/L (98-107); Estimated Glomerular Filt Rate 11; Glucose 174 mg/dL (65-110); Potassium 3.6 mmol/L (3.4-5.0); Sodium 131 mmol/L (137-145)
[2023-04-06 07:36] LABS: Glucose Point of Care 170 mg/dl (65-105)
[2023-04-06 07:51] LABS: Hepatitis B Surface Antigen Negative (Negative)
[2023-04-06 08:09] LABS: Hepatitis B Surface Anti Res Positive
--- NOTE | 2023-04-06 08:35 | PC.NURSE ---
Morning medications held. Patient scheduled for procedure.
--- NOTE | 2023-04-06 08:39 | PC.NURSE ---
pt transported via bed to dialysis.
--- NOTE | 2023-04-06 09:08 | WPDANESPN ---
Anes - Prog Note Post-Op Date/Time: 04/06/23 09:08 Cardiovascular status: normal Respiratory status: normal Airway patency: baseline Mental status: baseline Post-Op hydration status: normal Vital Signs: Last Vital Signs Temp 35.9 C L 04/06/23 05:15 Pulse 73 04/06/23 05:15 Resp 16 04/06/23 05:15 BP 170/58 H 04/06/23 05:15 Pulse Ox 97 04/06/23 05:15 O2 Del Method Room Air 04/05/23 20:00 Pain Score (VAS): 07/18 I/O: Intake & Output 04/05/23 04/06/23 04/06/23 23:59 07:59 15:59 Intake Total 59 3500 Output Total 300 Balance 59 3200 Laboratory Tests 04/06/23 06:28 04/06/23 06:28 04/05/23 04/05/23 04/05/23 11:18 13:32 14:57 WBC RBC Hgb Hct MCV MCH MCHC RDW Plt Count MPV Immature Gran % (Auto) Neut % (Auto) Lymph % (Auto) [place] % (Auto) Eos % (Auto) Baso % (Auto) Lymph # (Auto) [place] # (Auto) Eos # (Auto) Baso # (Auto) Abs Immat Gran (auto) Absolute Neuts (auto) Absolute Nucleated RBC Nucleated RBC % Sodium Potassium Chloride Carbon Dioxide Anion Gap BUN Creatinine Estim Creat Clear Calc Estimated GFR Glucose POC Capillary Glucose 169 H 157 H 150 H Calcium Hep Bs Antigen Hep Bs Antibody 04/05/23 04/05/23 04/06/23 16:22 20:37 06:28 WBC 8.0 RBC 2.99 L Hgb 8.9 L Hct 29.6 L MCV 99.0 MCH 29.8 MCHC 30.1 L RDW 16.2 H Plt Count 167 MPV 11.1 H Immature Gran % (Auto) 0.5 Neut % (Auto) 72.3 Lymph % (Auto) 15.8 L [place] % (Auto) 10.0 H Eos % (Auto) 0.9 Baso % (Auto) 0.5 Lymph # (Auto) 1.27 [place] # (Auto) 0.8 H Eos # (Auto) 0.1 Baso # (Auto) 0.0 Abs Immat Gran (auto) 0.04 H Absolute Neuts (auto) 5.8 Absolute Nucleated RBC 0.0 Nucleated RBC % 0.0 Sodium 131 L Potassium 3.6 Chloride 92 L Carbon Dioxide 28 Anion Gap 11 BUN 42 H Creatinine 4.00 H Estim Creat Clear Calc Not Reportable Estimated GFR 11 L Glucose 174 H POC Capillary Glucose 151 H 170 H Calcium 7.6 L Hep Bs Antigen Negative Hep Bs Antibody Positive 04/06/23 07:34 WBC RBC Hgb Hct MCV MCH MCHC RDW Plt Count MPV Immature Gran % (Auto) Neut % (Auto) Lymph % (Auto) [place] % (Auto) Eos % (Auto) Baso % (Auto) Lymph # (Auto) [place] # (Auto) Eos # (Auto) Baso # (Auto) Abs Immat Gran (auto) Absolute Neuts (auto) Absolute Nucleated RBC Nucleated RBC % Sodium Potassium Chloride Carbon Dioxide Anion Gap BUN Creatinine Estim Creat Clear Calc Estimated GFR Glucose POC Capillary Glucose 170 H Calcium Hep Bs Antigen Hep Bs Antibody Post-procedural complaints: none Patient Feedback: Patient satisfied with anesthetic care. Other Findings: Pt currently in dialysis, report from [facility]
--- NOTE | 2023-04-06 10:20 | PM.PNNEP ---
Progress Note: A&P Assessment and Plan (1) End stage renal disease: Code(s): N18.6 - End stage renal disease Status: Chronic Assessment and Plan: HD today and continue M/W/F schedule follow electrolytes, volume status, and clearance (2) Anemia: Qualifiers: Anemia type: unspecified type Qualified Code(s): D64.9 - Anemia, unspecified Code(s): D64.9 - Anemia, unspecified Status: Chronic Assessment and Plan: partly related to ESRD however, concern is for possible GI loss Gastroenterology following: s/p EGD (on 04/05): no active bleeding noted plan colonoscopy later today Epogen with HD follow trend of H/H (3) Hypertension: Qualifiers: Hypertension type: unspecified Qualified Code(s): I10 - Essential (primary) hypertension Code(s): I10 - Essential (primary) hypertension Status: Chronic Assessment and Plan: little high at this time - may improve with HD follow trend of hemodynamics (4) Type 2 diabetes mellitus: Qualifiers: Diabetes mellitus senior living insulin use: without senior living use Diabetes mellitus complication status: without complication Qualified Code(s): E11.9 - Type 2 diabetes mellitus without complications Code(s): E11.9 - Type 2 diabetes mellitus without complications Status: Chronic Assessment and Plan: follow accuchecks glycemic control per hospitalists Will continue to follow. Subjective Date/time seen: 04/06/23 10:20 Interval history: Follow-up for end stage renal disease on hemodialysis. Tolerating hemodialysis treatment at the time of my visit (seen on HD at 10:10AM); s/p EGD yesterday with results noted; feels weak at this time secondary to bowel prep yesterday afternoon due to planned colonoscopy later today; no other acute issues/events voiced. Exam Narrative: General: elderly and frail female in NAD Heart: normal S1 and S2; no rub Lungs: clear to auscultation Abdomen: soft, nontender, nondistended, positive bowel sounds Extremities: no cyanosis or clubbing; no edema Skin: warm and dry Objective Data Vital Signs Vital Signs: Vital Signs Temp Pulse Resp BP Pulse Ox O2 Del Method 04/06/23 10:20 91 183/102 H 04/06/23 10:00 65 156/63 H 04/06/23 09:40 74 168/69 H 04/06/23 09:20 68 156/75 H 04/06/23 09:00 68 167/65 H 04/06/23 08:54 68 148/80 H 04/06/23 08:44 98.1 F 67 18 157/65 H 04/06/23 08:00 Room Air 04/06/23 05:15 96.6 F L 73 16 170/58 H 97 04/05/23 20:00 94 Room Air 04/05/23 21:49 169/62 H 04/05/23 20:53 97.6 F 66 18 175/76 H 94 04/05/23 14:00 99 F 70 20 143/52 H 96 04/05/23 15:01 65 26 H 136/64 95 Room Air 04/05/23 14:51 67 25 H 112/50 L 97 Room Air 04/05/23 14:41 59 L 21 H 122/55 L 100 Room Air 04/05/23 13:27 97.5 F L 55 L 20 155/67 H 90 Room Air Intake/Output Intake/Output: Intake & Output 04/03/23 04/04/23 04/05/23 04/06/23 23:59 23:59 23:59 23:59 Intake Total 159 3500 Output Total 300 Balance 159 3200 Meds/Results Medications: Active Medications Generic Name Dose Route Start Last Admin Trade Name Freq PRN Reason Stop Dose Admin Acetaminophen 650 mg 04/04/23 22:47 04/05/23 09:07 Acetaminophen 325 Mg Tablet PO 650 mg Q6H PRN Administration Mild Pain (1-3) or Fever Atorvastatin Calcium 40 mg 04/05/23 09:00 04/05/23 08:55 Atorvastatin 40 Mg Tablet PO 40 mg DAILY THERESE Administration Calcium Carbonate 500 mg 04/04/23 22:20 04/05/23 21:48 Calcium Carbonate (Tums) 500 Mg (200 Mg Elemental) PO 500 mg QHS THERESE Administration Calcium Carbonate 200 mg 04/06/23 10:43 04/06/23 11:01 Calcium Carbonate (Tums) 500 Mg (200 Mg Elemental) PO 200 mg Q6H PRN Administration Indigestion Carvedilol 6.25 mg 04/05/23 09:00 04/06/23 05:49 Carvedilol 6.25
--- NOTE | 2023-04-06 10:30 | PM.IMPN ---
Progress Note: A&P Assessment and Plan (1) Paroxysmal atrial fibrillation: Code(s): I48.0 - Paroxysmal atrial fibrillation Status: Acute (2) Chronic anemia: Code(s): D64.9 - Anemia, unspecified Status: Acute (3) Dark stools: Code(s): R19.5 - Other fecal abnormalities Status: Acute (4) Acute lower gastrointestinal bleeding: Code(s): K92.2 - Gastrointestinal hemorrhage, unspecified Status: Acute (5) End stage renal disease on dialysis: Code(s): N18.6 - End stage renal disease; Z99.2 - Dependence on renal dialysis Status: Chronic Plan ?77-year-old female with history of gastritis, chronic anemia, hypertension, peripheral vascular disease, end-stage renal disease on hemodialysis, paroxysmal atrial fibrillation status post Watchman, and type 2 diabetes mellitus who presented to the emergency department for evaluation of dark stools.? 1. Acute on chronic anemia: H&H stable at the moment Documented melena, positive fecal occult blood Continue with PPI IV Appreciate GI consult Status post EGD yesterday which showed a polyp at the GE junction which was removed. No evidence of bleeding Plan for colonoscopy later today NPO No antiplatelets, NSAIDs, anticoagulants 2. ESRD on hemodialysis: Sunday, Sunday, Fridays her usual dialysis days Seems to be stable Appreciate nephrology Recheck BMP in a.m. 3. Diabetes mellitus: Blood glucose checked t.i.d. a.c. and HS Continue with Sliding scale insulin Continue with Januvia Adjust insulin dose as needed 4. Hypertension: Add p.r.n. IV hydralazine 5. DVT prophylaxis: SCDs 6. Code status: Full 7. Disposition: Pending improvement Time Spent With Patient Time with patient: 15 - 25 minutes Subjective Date/time seen: 04/06/23 10:30 Interval history: No acute events overnight Status post EGD yesterday, showed esophageal polyp which was removed, but no evidence of bleeding Review of Systems Review of Systems: All systems reviewed & are unremarkable except as noted in HPI and below Exam Narrative: General: A well-developed, HEENT: PERRL, EOMI. Sclera anicteric. Oral mucosa moist. Neck: Supple. Respiratory: Lungs are clear to auscultation bilaterally. Cardiovascular: Regular rate and rhythm with S1-S2. Systolic murmur at the upper sternal border. Gastrointestinal: Abdomen is soft, nontender, and nondistended with positive bowel sounds. Skin: Warm and dry. No rash or lesions on limited exam. Extremities: No significant edema. Nonfunctioning left upper extremity fistula. Right fistula with palpable thrill and bruit. Neurological: Alert. Cranial nerves 2-12 are grossly intact. Psychiatric: Pleasant and cooperative with normal mood and affect. Objective Data Vital Signs Vital Signs: Vital Signs - 24 hr 04/05/23 13:27 04/05/23 14:41 04/05/23 14:51 Temperature 97.5 F L Pulse Rate 55 L 59 L 67 Respiratory Rate 20 21 H 25 H Blood Pressure 155/67 H 122/55 L 112/50 L Pulse Oximetry 90 100 97 Oxygen Delivery Room Air Room Air Room Air 04/05/23 15:01 04/05/23 14:00 04/05/23 20:53 Temperature 99 F 97.6 F Pulse Rate 65 70 66 Respiratory Rate 26 H 20 18 Blood Pressure 136/64 143/52 H 175/76 H Pulse Oximetry 95 96 94 Oxygen Delivery Room Air 04/05/23 21:49 04/05/23 20:00 04/06/23 05:15 Temperature 96.6 F L Pulse Rate 73 Respiratory Rate 16 Blood Pressure 169/62 H 170/58 H Pulse Oximetry 94 97 Oxygen Delivery Room Air Intake/Output Intake/Output: Intake & Output 04/03/23 04/04/23 04/05/23 04/06/23 23:59 23:59 23:59 23:59 Intake Total 159 3500 Output Total 300 Balance 159 3200 Meds/Results Medications: Active Medications Generic Name Dose Route Start Last Admin Trade Name Freq PRN Reason Stop Dose Admin Acetaminophen 650 mg 04/04/23 22:47 04/05/23 09:07 Acetaminophen 325 Mg Tablet PO 650 mg Q6H PRN Administration Mil
[2023-04-06] MEDS: CALCIUM CARBONATE (TUMS) 500 MG (200 MG ELEMENTAL) PO ×2 (11:01→21:04)
[2023-04-06] MEDS: EPOETIN ALFA-EPBX 10,000 UNITS/ML VIAL 10000 UNITS IV PUSH (11:27)
--- NOTE | 2023-04-06 13:18 | PC.NURSE ---
To GI lab for Colonoscopy per stretcher.
[2023-04-06 13:50] LABS: Glucose Point of Care 103 mg/dl (65-105)
--- NOTE | 2023-04-06 14:09 | WPDANESEPPF ---
Anes - Initial Pre Proc Eval Procedure: Operation Date: 04/05/23 15:15 Proposed Procedures p Esophagogastroduodenoscopy - Robles Starr MD Operation Date: 04/06/23 14:15 Proposed Procedures p Colonoscopy - Venkata Abreu MD Date/Time: 04/06/23 14:09 Surgeon: Betsey Rodney MD Pre Op Diagnosis: LGIB,ANEMIA Patient Data Age: 77 Gender: F Height: 1.32 m Weight: 50 kg Last Vital Signs Temp 98.1 F 04/06/23 13:30 Pulse 79 04/06/23 13:30 Resp 24 H 04/06/23 13:30 BP 156/48 H 04/06/23 13:30 Pulse Ox 100 04/06/23 13:30 O2 Del Method Nasal Cannula 04/06/23 13:30 O2 Flow Rate 2 04/06/23 13:30 Allergies Allergy/AdvReac Type Severity Reaction Status Date / Time cephalexin Allergy Mild Rash Verified 04/06/23 13:50 enalapril Allergy Unknown cough Verified 04/06/23 13:50 pioglitazone Allergy Unknown Unknown Verified 04/06/23 13:50 tramadol Allergy Unknown hallucinati Verified 04/06/23 13:50 ons gabapentin Allergy Hallucinati Verified 04/06/23 13:50 ng cefazolin AdvReac Mild nausea/dizz Verified 04/06/23 13:50 iness Home Medications Medication Instructions Recorded Confirmed Type cyanocobalamin (vitamin B-12) 500 500 mcg PO DAILY 06/12/19 04/04/23 History mcg tablet acetaminophen 500 mg tablet 1,000 mg PO Q6H PRN Pain 02/20/20 04/04/23 History (Acetaminophen Extra Strength) cinacalcet 30 mg tablet 30 mg PO DAILY 03/29/20 04/04/23 History sevelamer HCl 800 mg tablet 800 mg PO TID 03/29/20 04/04/23 History liraglutide 0.6 mg/0.1 mL (18 mg/3 See Rx Instructions .Route 06/08/21 04/04/23 Rx mL) subcutaneous pen injector .COMPLEX #18 mL (Victoza 2-Agustín) blood sugar diagnostic #500 ea 07/18/21 04/04/23 Rx atorvastatin 40 mg tablet 40 mg PO DAILY 10/25/21 04/04/23 History calcium carbonate 200 mg calcium 400 mg PO QHS 10/25/21 04/04/23 History (500 mg) chewable tablet (Tums) vitamin B complex and vitamin C 1 cap PO DAILY 10/25/21 04/04/23 History no.20-folic acid 1 mg capsule (Renal Caps) pen needle, diabetic 32 gauge x #100 ea 02/06/22 04/04/23 Rx 1/5 insulin degludec 100 unit/mL (3 See Rx Instructions .Route 03/06/22 04/04/23 Rx mL) subcutaneous pen (Tresiba .COMPLEX #15 mL FlexTouch U-100 insulin) carvedilol 12.5 mg tablet (Coreg) 6.25 mg PO DAILY 05/11/22 04/04/23 History sitagliptin phosphate 100 mg 100 mg PO DAILY #90 tabs 08/28/22 04/04/23 Rx tablet (Januvia) trazodone 50 mg tablet 50 mg PO QHS #90 tabs 12/13/22 04/04/23 Rx foldiing walker #1 ea 01/11/23 04/04/23 Rx denosumab 60 mg/mL subcutaneous 60 mg subcut [id number] #1 mL 01/19/23 04/04/23 Rx syringe (Prolia) pantoprazole 40 mg tablet,delayed 40 mg PO Q12HR #60 tabs 01/31/23 04/04/23 Rx release ergocalciferol (vitamin D2) 1,250 See Rx Instructions .Route 02/16/23 04/04/23 Rx mcg (50,000 unit) capsule .COMPLEX #13 caps Laboratory Tests 04/05/23 04/05/23 04/05/23 14:57 16:22 20:37 WBC RBC Hgb Hct MCV MCH MCHC RDW Plt Count MPV Immature Gran % (Auto) Neut % (Auto) Lymph % (Auto) [place] % (Auto) Eos % (Auto) Baso % (Auto) Lymph # (Auto) [place] # (Auto) Eos # (Auto) Baso # (Auto) Abs Immat Gran (auto) Absolute Neuts (auto) Absolute Nucleated RBC Nucleated RBC % Sodium Potassium Chloride Carbon Dioxide Anion Gap BUN Creatinine Estim Creat Clear Calc Estimated GFR Glucose POC Capillary Glucose 150 H mg/dl 151 H mg/dl 170 H mg/dl (65-105) (65-105) (65105) Calcium Hep Bs Antigen Hep Bs Antibody 04/06/23
[2023-04-06] MEDS: SODIUM CHLORIDE 0.9% IV 500 ML 10 ML IV CONT (14:12)
--- NOTE | 2023-04-06 15:08 | PC.NURSE ---
Return to room 321-1 from Colonoscopy per stretcher.
[2023-04-06] MEDS: SEVELAMER CARBONATE 800 MG TABLET PO (15:26)
[2023-04-06] MEDS: CYANOCOBALAMIN 500 MCG TABLET PO (15:27)
[2023-04-06] MEDS: CINACALCET 30 MG TABLET PO (15:27)
[2023-04-06] MEDS: ATORVASTATIN 40 MG TABLET PO (15:27)
[2023-04-06] MEDS: VITAMIN B CMPLX/VIT C/FOLIC AC 1 CAPSULE 1 CAP PO (15:28)
[2023-04-06] MEDS: PANTOPRAZOLE SODIUM IV 40 MG VIAL IV PUSH ×2 (15:30→21:05)
[2023-04-06 15:53] LABS: Glucose Point of Care 127 mg/dl (65-105)
[2023-04-06 20:02] LABS: Glucose Point of Care 208 mg/dl (65-105)
[2023-04-06] MEDS: traZODone HCL 50 MG TABLET PO (21:05)
[2023-04-06] MEDS: INSULIN ASPART (*BKC) 100 UNITS/ML SUB-Q (21:10)
[2023-04-07 05:45] VITALS: BP 133/58; PULSE 77; RESP 13; TEMP 37.6; O2SAT 93
[2023-04-07 06:38] LABS: Basophils Percent Auto 0.4 % (0.2-1.2); Eosinophils Absolute Auto 0.1 K/mm3 (0-0.3); Eosinophils Percent Auto 0.9 % (0-4.4); Hematocrit 26.8 % (37.0-47.0); Hemoglobin 7.7 g/dL (12.0-15.0); Immature Granulocyte Absolute 0.03 K/mm3 (0.00-0.031); Immature Granulocyte Percent A 0.4 % (0-0.5); Lymphocytes Absolute Auto 1.26 K/mm3 (0.9-3.2); Lymphocytes Percent Auto 15.4 % (18.3-44.2); Mean Corpuscular HGB Conc 28.7 g/dl (32-36); Mean Corpuscular Hemoglobin 29.8 pg (26-34); Mean Corpuscular Volume 103.9 fl (80-100); Mean Platelet Volume 11.2 fl (7.4-10.4); Monocytes Absolute Auto 1.2 K/mm3 (0.1-0.6); Neutrophils Absolute Auto 5.6 K/mm3 (1.3-6.7); Neutrophils Percent Auto 67.9 % (45.5-73.1); Nucleated Red Blood Cells Absolute Auto 0.1 K/mm3 (0.0-0.012); Nucleated Red Blood Cells Perc 0.7 % (0.0-0.2); Platelet Count Result 175 k/mm3 (150-375); Red Blood Count 2.58 M/mm3 (4.2-5.4); Red Cell Distribution Width 16.9 % (11.5-14.5); White Blood Count 8.2 K/mm3 (4.5-10.0)
[2023-04-07 06:52] LABS: Anion Gap 6 mmol/L (8-16); Blood Urea Nitrogen 20 mg/dL (7-17); Calcium 8.1 mg/dL (8.4-10.2); Carbon Dioxide 29 mmol/L (22-30); Chloride 99 mmol/L (98-107); Estimated Glomerular Filt Rate 16; Glucose 162 mg/dL (65-110); Potassium 3.5 mmol/L (3.4-5.0); Sodium 134 mmol/L (137-145)
[2023-04-07 07:26] LABS: Hypochromasia 2+ (NORMAL); Platelet Estimate Adequate (Adequate); Schistocytes None Seen (NORMAL)
[2023-04-07 07:49] LABS: Glucose Point of Care 156 mg/dl (65-105)
--- NOTE | 2023-04-07 07:49 | WPDGIPROGNO ---
Progress Note: A&P Assessment and Plan (1) Chronic anemia: Code(s): D64.9 - Anemia, unspecified Status: Acute Assessment and Plan: there was no site of bleeding seen on either EGD or colonoscopy. Previous EGD when her blood counts have dropped back in December also was negative. Hemoglobin today 7.7 . her normal ranges from the high sevens to about 8.9. (2) Megaloblastic anemia: Code(s): D53.1 - Other megaloblastic anemias, not elsewhere classified Status: Acute Assessment and Plan: She has had chronically elevated MCV for which she has been followed by Dr. Allen. I would consider her following up with him again (3) Atrial fibrillation: Qualifiers: Atrial fibrillation type: unspecified Qualified Code(s): I48.91 - Unspecified atrial fibrillation Code(s): I48.91 - Unspecified atrial fibrillation Status: Chronic Assessment and Plan: not currently anticoagulated (4) End stage renal disease on dialysis: Code(s): N18.6 - End stage renal disease; Z99.2 - Dependence on renal dialysis Status: Chronic Plan Okay to be discharged from my perspective. Subjective Date/time seen: 04/07/23 07:49 she feels good today. No bowel movement since her colonoscopy except for clear small BM last evening. She is eager to go home. Tolerating her diet. Exam Const: General: alert Orientation/consciousness: patient oriented x3 Resp: Auscultation: clear to auscultation bilaterally Cardio: Rhythm: regular rhythm GI: GI Palp: Yes Soft to palpation and No Tenderness to palpation present (GI) Neuro: General: patient oriented x3 Objective Data Vital Signs Vital Signs: Vital Signs - 24 hr 04/06/23 08:00 04/06/23 08:44 04/06/23 08:54 Temperature 36.7 C Pulse Rate 67 68 Respiratory Rate 18 Blood Pressure 157/65 H 148/80 H Pulse Oximetry Oxygen Delivery Room Air Oxygen Flow Rate 04/06/23 09:00 04/06/23 09:20 04/06/23 09:40 Temperature Pulse Rate 68 68 74 Respiratory Rate Blood Pressure 167/65 H 156/75 H 168/69 H Pulse Oximetry Oxygen Delivery Oxygen Flow Rate 04/06/23 10:00 04/06/23 10:20 04/06/23 10:40 Temperature Pulse Rate 65 91 78 Respiratory Rate Blood Pressure 156/63 H 183/102 H 153/63 H Pulse Oximetry Oxygen Delivery Oxygen Flow Rate 04/06/23 11:00 04/06/23 11:20 04/06/23 11:40 Temperature Pulse Rate 83 80 81 Respiratory Rate Blood Pressure 168/79 H 128/108 H 156/62 H Pulse Oximetry Oxygen Delivery Oxygen Flow Rate 04/06/23 13:30 04/06/23 12:00 04/06/23 12:11 Temperature 36.7 C Pulse Rate 79 81 81 Respiratory Rate 24 H Blood Pressure 156/48 H 175/70 H 175/70 H Pulse Oximetry 100 Oxygen Delivery Nasal Cannula Oxygen Flow Rate 2 04/06/23 12:40 04/06/23 14:40 04/06/23 14:50 Temperature 36.6 C Pulse Rate 82 86 77 Respiratory Rate 16 25 H 25 H Blood Pressure 166/49 H 135/47 L 149/56 H Pulse Oximetry 100 100 Oxygen Delivery Nasal Cannula Nasal Cannula Oxygen Flow Rate 2 1 04/06/23 15:00 04/06/23 21:37 04/06/23 20:00 Temperature 37.4 C Pulse Rate 71 83 Respiratory Rate 24 H 12 Blood Pressure 155/60 H 145/35 H Pulse Oximetry 96 100 100 Oxygen Delivery Room Air Room Air Oxygen Flow Rate 04/07/23 05:45 Temperature 37.6 C Pulse Rate 77 Respiratory Rate 13 Blood Pressure 133/58 L Pulse Oximetry 93 Oxygen Delivery Oxygen Flow Rate Intake/Output Intake/Output: Intake & Output 04/04/23 04/05/23 04/06/23 04/07/23 23:59 23:59 23:59 23:59 Intake Total 159 3980 750 Output Total 800 Balance 159 3180 750 Meds/Results Medications: Active Medications Generic Name Dose Route Start Last Admin Trade Name Freq PRN Reason Stop Dose Admin Acetaminophen 650 mg 04/04/23 22:47 04/05/23 09:07 Acetaminophen 325 Mg Tablet PO 650 mg Q6H PRN Administration Mild Pain (1-3) or Feve
[2023-04-07] MEDS: PANTOPRAZOLE SODIUM IV 40 MG VIAL IV PUSH (08:37)
[2023-04-07 08:39] VITALS: PULSE 76; RESP 14; O2SAT 93
[2023-04-07] MEDS: VITAMIN B CMPLX/VIT C/FOLIC AC 1 CAPSULE 1 CAP PO (08:39)
[2023-04-07] MEDS: SEVELAMER CARBONATE 800 MG TABLET PO ×2 (08:39→11:36)
[2023-04-07] MEDS: CYANOCOBALAMIN 500 MCG TABLET PO (08:39)
[2023-04-07] MEDS: carvediloL 6.25 MG TABLET PO (08:39)
[2023-04-07] MEDS: ATORVASTATIN 40 MG TABLET PO (08:39)
[2023-04-07] MEDS: CINACALCET 30 MG TABLET PO (08:39)
--- NOTE | 2023-04-07 10:23 | WPDANESPN ---
Anes - Prog Note Post-Op Date/Time: 04/07/23 10:23 Cardiovascular status: normal Respiratory status: normal Airway patency: baseline Mental status: baseline Post-Op hydration status: normal Vital Signs: Last Vital Signs Temp 37.6 C 04/07/23 05:45 Pulse 76 04/07/23 08:39 Resp 14 04/07/23 08:39 BP 133/58 L 04/07/23 05:45 Pulse Ox 93 04/07/23 08:39 O2 Del Method Room Air 04/07/23 08:39 O2 Flow Rate 1 04/06/23 14:50 Pain Score (VAS): 07/18 I/O: Intake & Output 04/06/23 04/07/23 04/07/23 23:59 07:59 15:59 Intake Total 750 120 Balance 750 120 Laboratory Tests 04/07/23 06:21 04/07/23 06:21 04/06/23 04/06/23 04/06/23 13:47 15:50 19:29 WBC RBC Hgb Hct MCV MCH MCHC RDW Plt Count MPV Immature Gran % (Auto) Neut % (Auto) Lymph % (Auto) [place] % (Auto) Eos % (Auto) Baso % (Auto) Lymph # (Auto) [place] # (Auto) Eos # (Auto) Baso # (Auto) Abs Immat Gran (auto) Absolute Neuts (auto) Absolute Nucleated RBC Nucleated RBC % Platelet Estimate Hypochromasia Schistocytes Sodium Potassium Chloride Carbon Dioxide Anion Gap BUN Creatinine Estim Creat Clear Calc Estimated GFR Glucose POC Capillary Glucose 103 127 H 208 H Calcium 04/07/23 04/07/23 06:21 07:40 WBC 8.2 RBC 2.58 L Hgb 7.7 L Hct 26.8 L MCV 103.9 H MCH 29.8 MCHC 28.7 L RDW 16.9 H Plt Count 175 MPV 11.2 H Immature Gran % (Auto) 0.4 Neut % (Auto) 67.9 Lymph % (Auto) 15.4 L [place] % (Auto) 15.0 H Eos % (Auto) 0.9 Baso % (Auto) 0.4 Lymph # (Auto) 1.26 [place] # (Auto) 1.2 H Eos # (Auto) 0.1 Baso # (Auto) 0.0 Abs Immat Gran (auto) 0.03 Absolute Neuts (auto) 5.6 Absolute Nucleated RBC 0.1 H Nucleated RBC % 0.7 H Platelet Estimate Adequate Hypochromasia 2+ Schistocytes None seen Sodium 134 L Potassium 3.5 Chloride 99 Carbon Dioxide 29 Anion Gap 6 L BUN 20 H D Creatinine 2.90 H Estim Creat Clear Calc Not Reportable Estimated GFR 16 L Glucose 162 H POC Capillary Glucose 156 H Calcium 8.1 L Post-procedural complaints: none Patient Feedback: Patient satisfied with anesthetic care.
--- NOTE | 2023-04-07 10:27 | PM.DS ---
DS: Admitting Diagnosis Discharge Date 04/07/2023 Admitting Diagnosis dark stools, history of gastritis, chronic anemia, end-stage renal disease on dialysis, alert related abnormality, paroxysmal atrial fibrillation, type 2 diabetes mellitus DS: Discharge Diagnosis Discharge Diagnosis (1) Acute lower gastrointestinal bleeding: Code(s): K92.2 - Gastrointestinal hemorrhage, unspecified Status: Acute (2) Dark stools: Code(s): R19.5 - Other fecal abnormalities Status: Acute (3) Chronic anemia: Code(s): D64.9 - Anemia, unspecified Status: Acute (4) End stage renal disease on dialysis: Code(s): N18.6 - End stage renal disease; Z99.2 - Dependence on renal dialysis Status: Chronic (5) Type 2 diabetes mellitus: Qualifiers: Diabetes mellitus buttermaker continuous churn insulin use: without buttermaker continuous churn use Diabetes mellitus complication status: without complication Qualified Code(s): E11.9 - Type 2 diabetes mellitus without complications Code(s): E11.9 - Type 2 diabetes mellitus without complications Status: Chronic (6) Hypertension: Qualifiers: Hypertension type: unspecified Qualified Code(s): I10 - Essential (primary) hypertension Code(s): I10 - Essential (primary) hypertension Status: Chronic (7) Paroxysmal atrial fibrillation: Code(s): I48.0 - Paroxysmal atrial fibrillation Status: Acute DS: Summary Hospital Course Reason for hospitalization: Dark stools with suspicion of active GI Bleed Hospital Course: 77-year-old female with history of gastritis, chronic anemia, hypertension, peripheral vascular disease, end-stage renal disease on hemodialysis, paroxysmal atrial fibrillation status post Watchman, and type 2 diabetes mellitus who presented to the emergency department for evaluation of dark stools. Patient underwent EGD and Colonoscopy without evidence of active bleeding. Chronic megaloblastic anemia noted. Patient to follow up with Dr. Allen after discharge per GI recommendations. Status at Discharge Cognitive/behavioral status at discharge: awake, alert oriented and pleasant Functional status at discharge: independent ambulation Overall status at discharge: patient is progressing back to baseline Time Spent with Patient Time attestation: Total time spent providing and/or coordinating discharge services: 35 mintues Time spent: Greater than 30 minutes Specific discharge activities: chart review from multiple providers Exam Narrative: General: Well developed female patient seated upright, no acute distress. HEENT: PERRL, EOMI. Sclera anicteric. Oral mucosa moist. Neck: Supple. No JVD Respiratory: Lungs are clear to auscultation bilaterally. Cardiovascular: Regular rate and rhythm with S1-S2. Systolic murmur at the upper sternal border. Gastrointestinal: Abdomen is soft, nontender, and nondistended with positive bowel sounds. Skin: Warm and dry. No rash or lesions on limited exam. Extremities: No significant edema. Nonfunctioning left upper extremity fistula. Right fistula with palpable thrill and bruit. Neurological: Alert. Cranial nerves 2-12 are grossly intact. Psychiatric: Pleasant and cooperative with normal mood and affect. DS: Data Data Completed and Pending Pending studies at discharge: Pending at discharge 04/05/23 15:03 Surgical [PTH] Routine 04/06/23 14:38 Surgical [PTH] Routine Labs on day of discharge: Labs from last 24 hours 04/07/23 04/07/23 04/06/23 07:40 06:21 19:29 WBC 8.2 RBC 2.58 L Hgb 7.7 L Hct 26.8 L MCV 103.9 H MCH 29.8 MCHC 28.7 L RDW 16.9 H Plt Count 175 MPV 11.2 H Immature Gran % (Auto) 0.4 Neut % (Auto) 67.9 Lymph % (Auto) 15.4 L [place] % (Auto) 15.0 H Eos % (Auto) 0.9 Baso % (Auto) 0.4 Lymph # (Auto) 1.26 [place] # (Auto) 1.2 H Eos # (Auto) 0.1 Baso # (Auto) 0.0 Abs Immat Gran (auto) 0.0
[2023-04-07 11:48] LABS: Glucose Point of Care 229 mg/dl (65-105)
[2023-04-07] MEDS: ACETAMINOPHEN 325 MG TABLET 650 MG PO (11:50)
[2023-04-07] MEDS: INSULIN ASPART (*BKC) 100 UNITS/ML SUB-Q (11:53)
== END 2023-04-07 13:00 | disposition home or self-care (01) ==
LOC: ANHED 16:51 → ANH3MEDSUR 17:31
PROVIDERS: Emergency Medicine; Internal Medicine; Internal Medicine Gastroenterology; Internal Medicine Nephrology; Physician Assistant; Admitting Provider Hospitalist; Emergency Provider Emergency Medicine; PCP Family Medicine; Visit Provider Hospitalist
PROC: 0DJ08ZZ Inspection of Upper Intestinal Tract, Via Natural or Artificial Opening Endoscopic (ICD-10-PCS; CPT 43235; principal; 2023-04-05 15:15)
PROC: 0DJD8ZZ Inspection of Lower Intestinal Tract, Via Natural or Artificial Opening Endoscopic (ICD-10-PCS; CPT 45378; principal; 2023-04-06 14:15)
DX: D13.0 Benign neoplasm of esophagus (principal); D12.4 Benign neoplasm of descending colon; R19.5 Other fecal abnormalities; I12.0 Hypertensive chronic kidney disease with stage 5 chronic kidney disease or end stage renal disease; E11.22 Type 2 diabetes mellitus with diabetic chronic kidney disease; E11.51 Type 2 diabetes mellitus with diabetic peripheral angiopathy without gangrene; N18.6 End stage renal disease; D63.1 Anemia in chronic kidney disease; Z99.2 Dependence on renal dialysis; E87.8 Other disorders of electrolyte and fluid balance, not elsewhere classified; Z95.818 Presence of other cardiac implants and grafts; E78.5 Hyperlipidemia, unspecified; M81.0 Age-related osteoporosis without current pathological fracture; I48.0 Paroxysmal atrial fibrillation; Z79.1 Long term (current) use of non-steroidal anti-inflammatories (NSAID); Z79.85 Long-term (current) use of injectable non-insulin antidiabetic drugs; Z79.4 Long term (current) use of insulin; Z79.84 Long term (current) use of oral hypoglycemic drugs; Z79.899 Other long term (current) drug therapy; Z82.49 Family history of ischemic heart disease and other diseases of the circulatory system
CPT/HCPCS: 43251; 45385; 36415; 80048; 80053; 82948; 83735; 84100; 85014; 85018; 85025; 85027; 85610; 85730; 86706; 86850; 86900; 86901; 87340; 88305; 96374; 99285; A9270; C9113; G0257; G0378; J1815; J2704; J7030; J7040; J7120; Q5105

== ENCOUNTER 2023-05-07 15:46 | Emergency (ER) | payer MEDICARE, MEDICAID, SELFPAY ==
[2023-05-07 15:52] VITALS: BP 120/40; PULSE 57; RESP 20; TEMP 36.7; O2SAT 98
--- NOTE | 2023-05-07 15:59 | ED.GENADULT ---
HPI - General Adult General Chief complaint: GI Bleed Stated complaint: bloody stool Time Seen by Provider: 05/07/23 20:37 History of Present Illness HPI narrative: Shasta Oabndo is a 78 y/o female PMHx of Htn / DM on HD MWF. Finished Dialysis today. Presents with reports of having dark stools she is concerned is blood that started 2 days ago. She reports she had a little bit of abdominal pain 2 days ago but denies having any at this time. Denies Nausea/vomiting. Reports hx of GI bleed about a month ago. Related Data Home Medications Medication Instructions Recorded Confirmed cyanocobalamin (vitamin B-12) 500 500 mcg PO DAILY 06/12/19 04/04/23 mcg tablet acetaminophen 500 mg tablet 1,000 mg PO Q6H PRN Pain 02/20/20 04/04/23 (Acetaminophen Extra Strength) cinacalcet 30 mg tablet 30 mg PO DAILY 03/29/20 04/04/23 sevelamer HCl 800 mg tablet 800 mg PO TID 03/29/20 04/04/23 atorvastatin 40 mg tablet 40 mg PO DAILY 10/25/21 04/04/23 calcium carbonate 200 mg calcium 400 mg PO QHS 10/25/21 04/04/23 (500 mg) chewable tablet (Tums) vitamin B complex and vitamin C 1 cap PO DAILY 10/25/21 04/04/23 no.20-folic acid 1 mg capsule (Renal Caps) carvedilol 12.5 mg tablet (Coreg) 6.25 mg PO DAILY 05/11/22 04/04/23 Allergies Allergy/AdvReac Type Severity Reaction Status Date / Time cephalexin Allergy Mild Rash Verified 04/06/23 13:50 enalapril Allergy Unknown cough Verified 04/06/23 13:50 pioglitazone Allergy Unknown Unknown Verified 04/06/23 13:50 tramadol Allergy Unknown hallucinati Verified 04/06/23 13:50 ons gabapentin Allergy Hallucinati Verified 04/06/23 13:50 ng cefazolin AdvReac Mild nausea/dizz Verified 04/06/23 13:50 [facility] Past Medical History Medical History Anemia of chronic disease Megaloblastic anemia AV fistula Left upper extremity Closed fracture of lateral portion of right tibial plateau (~2014) End stage renal disease on dialysis Dialysis days are Sunday, Sunday, and Sunday. She is on the transplant list at [facility]. Hiatal hernia Hyperlipidemia Hypertension Osteoarthritis of both knees Osteoporosis Paroxysmal atrial fibrillation Peripheral arterial disease History mid foot amputation. Pulmonary hypertension Echocardiogram August 2019: EF 65-70 %, indeterminate left ventricular diastolic function, mild biatrial enlargement, mild mitral valve regurgitation, moderate tricuspid regurgitation, mild pulmonary hypertension with RVSP of 39 Spinal stenosis at L4-L5 level High-grade central canal stenosis noted on MRI February 2017 Staphylococcal septicemia (~2013) Thoracic ascending aortic aneurysm 4.[address] scan from August 2019 Tubular adenoma of colon Type 2 diabetes mellitus Hemoglobin A1c was 6.6 in July 2019. Surgical History Surgical History Amputated toe of left foot Amputation at midfoot 5th digit right footAnd the great toe on the left History of arthroplasty of right ankle History of arthroscopy (~12/07/12) wrist History of bilateral cataract extraction History of colonoscopy (~12/02/15) History of knee replacement (~2015) right Presence of Watchman left atrial appendage closure device Family History Family History Father Hypertension Heart disease Mother Diabetes mellitus Hypertension Tobacco dependence Lung cancer Sibling Heart disease Social History Social History Social History: The patient is and lives in [place]. She is originally from [place]. 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 She has 2 daughters who live in [place]. She has 1 son who lives in [facility] . She designates her daughters as her surrogate decision makers. She is a lifelong nons
[2023-05-07 16:26] LABS: Prothrombin Time 13.8 Seconds (11.1-14.7)
[2023-05-07 16:27] LABS: Alanine Aminotransferase 17 U/L (6-35); Albumin Level 4.1 g/dL (3.5-5.1); Alkaline Phosphatase 137 U/L (38-126); Anion Gap 9 mmol/L (8-16); Aspartate Amino Transferase 36 U/L (14-36); Bilirubin,Total 0.8 mg/dL (0.2-1.3); Blood Urea Nitrogen 28 mg/dL (7-17); Calcium 8.5 mg/dL (8.4-10.2); Carbon Dioxide 31 mmol/L (22-30); Chloride 92 mmol/L (98-107); Estimated Glomerular Filt Rate 18; Glucose 220 mg/dL (65-110); Lipase 155 U/L (23-300); Magnesium 2.1 mg/dL (1.6-2.3); Potassium 3.3 mmol/L (3.4-5.0); Sodium 132 mmol/L (137-145)
[2023-05-07 16:27] LABS: Partial Thromboplastin Time 31.3 SECONDS (22.3-36.8)
[2023-05-07 16:30] LABS: Basophils Percent Auto 0.6 % (0.2-1.2); Eosinophils Absolute Auto 0.1 K/mm3 (0-0.3); Eosinophils Percent Auto 2.4 % (0-4.4); Hematocrit 35.6 % (37.0-47.0); Hemoglobin 10.6 g/dL (12.0-15.0); Immature Granulocyte Absolute 0.01 K/mm3 (0.00-0.031); Immature Granulocyte Percent A 0.2 % (0-0.5); Lymphocytes Absolute Auto 0.94 K/mm3 (0.9-3.2); Lymphocytes Percent Auto 17.5 % (18.3-44.2); Mean Corpuscular HGB Conc 29.8 g/dl (32-36); Mean Corpuscular Hemoglobin 29.7 pg (26-34); Mean Corpuscular Volume 99.7 fl (80-100); Mean Platelet Volume 11.4 fl (7.4-10.4); Monocytes Absolute Auto 0.6 K/mm3 (0.1-0.6); Monocytes Percent Auto 11.4 % (2.6-8.5); Neutrophils Absolute Auto 3.6 K/mm3 (1.3-6.7); Neutrophils Percent Auto 67.9 % (45.5-73.1); Platelet Count Result 150 k/mm3 (150-375); Red Blood Count 3.57 M/mm3 (4.2-5.4); White Blood Count 5.4 K/mm3 (4.5-10.0)
[2023-05-07 16:57] LABS: Platelet Estimate Adequate (Adequate); Schistocytes None Seen (NORMAL)
[2023-05-07 16:58] LABS: Anisocytosis 2+ (NORMAL); Hypochromasia 1+ (NORMAL)
[2023-05-07 20:32] VITALS: BP 146/58; PULSE 61; RESP 20; O2SAT 98
[2023-05-07 21:42] VITALS: BP 141/46; PULSE 61; RESP 18; O2SAT 97
[2023-05-07 22:20] LABS: Hematocrit 32.5 % (37.0-47.0); Hemoglobin 9.6 g/dL (12.0-15.0)
--- NOTE | 2023-05-07 22:40 | ED.GENADULT ---
HPI - General Adult General Chief complaint: GI Bleed Stated complaint: bloody stool Time Seen by Provider: 05/07/23 20:37 History of Present Illness HPI narrative: this is a 78-year-old female presenting to ED with chief complaint of dark stools. Over the weekend she notes that she had dark stools on Sunday. 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 Today they were normal. She has a history of GI bleed in the past. She denies any abdominal pain. She is not on anticoagulation but she does get dialysis. Related Data Home Medications Medication Instructions Recorded Confirmed cyanocobalamin (vitamin B-12) 500 500 mcg PO DAILY 06/12/19 04/04/23 mcg tablet acetaminophen 500 mg tablet 1,000 mg PO Q6H PRN Pain 02/20/20 04/04/23 (Acetaminophen Extra Strength) cinacalcet 30 mg tablet 30 mg PO DAILY 03/29/20 04/04/23 sevelamer HCl 800 mg tablet 800 mg PO TID 03/29/20 04/04/23 atorvastatin 40 mg tablet 40 mg PO DAILY 10/25/21 04/04/23 calcium carbonate 200 mg calcium 400 mg PO QHS 10/25/21 04/04/23 (500 mg) chewable tablet (Tums) vitamin B complex and vitamin C 1 cap PO DAILY 10/25/21 04/04/23 no.20-folic acid 1 mg capsule (Renal Caps) carvedilol 12.5 mg tablet (Coreg) 6.25 mg PO DAILY 05/11/22 04/04/23 Allergies Allergy/AdvReac Type Severity Reaction Status Date / Time cephalexin Allergy Mild Rash Verified 04/06/23 13:50 enalapril Allergy Unknown cough Verified 04/06/23 13:50 pioglitazone Allergy Unknown Unknown Verified 04/06/23 13:50 tramadol Allergy Unknown hallucinati Verified 04/06/23 13:50 ons gabapentin Allergy Hallucinati Verified 04/06/23 13:50 ng cefazolin AdvReac Mild nausea/dizz Verified 04/06/23 13:50 iness [facility] Past Medical History Medical History Anemia of chronic disease Megaloblastic anemia AV fistula Left upper extremity Closed fracture of lateral portion of right tibial plateau (~2014) End stage renal disease on dialysis Dialysis days are Sunday, Sunday, and Sunday. She is on the transplant list at [facility]. Hiatal hernia Hyperlipidemia Hypertension Osteoarthritis of both knees Osteoporosis Paroxysmal atrial fibrillation Peripheral arterial disease History mid foot amputation. Pulmonary hypertension Echocardiogram August 2019: EF 65-70 %, indeterminate left ventricular diastolic function, mild biatrial enlargement, mild mitral valve regurgitation, moderate tricuspid regurgitation, mild pulmonary hypertension with RVSP of 39 Spinal stenosis at L4-L5 level High-grade central canal stenosis noted on MRI February 2017 Staphylococcal septicemia (~2013) Thoracic ascending aortic aneurysm 4.[address] scan from August 2019 Tubular adenoma of colon Type 2 diabetes mellitus Hemoglobin A1c was 6.6 in July 2019. Surgical History Surgical History Amputated toe of left foot Amputation at midfoot 5th digit right footAnd the great toe on the left History of arthroplasty of right ankle History of arthroscopy (~12/07/12) wrist History of bilateral cataract extraction History of colonoscopy (~12/02/15) History of knee replacement (~2015) right Presence of Watchman left atrial appendage closure device Family History Family History Father Hypertension Heart disease Mother Diabetes mellitus Hypertension Tobacco dependence Lung cancer Sibling Heart disease Social History Social History Social History: The patient is and lives in [place]. She is originally from [place]. 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 She has 2 daughters who live in [place]. She has 1 son who lives in [facility] . She designates her daughters as her surrogate decision makers. She is a lifelo
[2023-05-07 23:15] VITALS: BP 142/48; PULSE 60; RESP 16; O2SAT 98
== END 2023-05-07 23:17 | disposition left against medical advice (07) ==
PROVIDERS: Nurse Practitioner Family; Emergency Provider Emergency Medicine; PCP Family Medicine
DX: K92.1 Melena (principal); E78.5 Hyperlipidemia, unspecified; I48.0 Paroxysmal atrial fibrillation; E11.22 Type 2 diabetes mellitus with diabetic chronic kidney disease; I12.0 Hypertensive chronic kidney disease with stage 5 chronic kidney disease or end stage renal disease; N18.6 End stage renal disease
CPT/HCPCS: 36415; 80053; 83690; 83735; 85014; 85018; 85025; 85610; 85730; 86850; 86900; 86901; 99283

== ENCOUNTER 2023-06-06 15:51 | Observation (INO) | payer MEDICARE, MEDICAID, SELFPAY ==
[2023-06-06] VITALS (18 sets, daily range): BP systolic 105–176; BP diastolic 40–70; PULSE 64–81; RESP 14–35; TEMP 36.5–37.1; O2SAT 94–97
--- NOTE | ~2023-06-06 | XR_ITS ---
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 RESULT: Lines, tubes, and devices: Vascular stent over the right apex, possibly subclavian. Atrial occlusion device. Lungs and pleura: Mild diffuse reticular opacities. No focal consolidation. Cardiomediastinal silhouette: Stable cardiomegaly. Other: No acute osseous or upper abdominal finding. IMPRESSION: Mild interstitial edema. Cardiomegaly. Reviewed, dictated and finalized at location K. TLE DRIVER
[2023-06-06 16:13] LABS: Basophils Percent Auto 0.4 % (0.2-1.2); Eosinophils Absolute Auto 0.1 K/mm3 (0-0.3); Eosinophils Percent Auto 0.9 % (0-4.4); Hematocrit 23.6 % (37.0-47.0); Immature Granulocyte Absolute 0.04 K/mm3 (0.00-0.031); Immature Granulocyte Percent A 0.5 % (0-0.5); Lymphocytes Absolute Auto 1.09 K/mm3 (0.9-3.2); Lymphocytes Percent Auto 14.4 % (18.3-44.2); Mean Corpuscular HGB Conc 29.7 g/dl (32-36); Mean Corpuscular Hemoglobin 29.8 pg (26-34); Mean Corpuscular Volume 100.4 fl (80-100); Mean Platelet Volume 11.7 fl (7.4-10.4); Monocytes Absolute Auto 0.8 K/mm3 (0.1-0.6); Monocytes Percent Auto 10.1 % (2.6-8.5); Neutrophils Absolute Auto 5.6 K/mm3 (1.3-6.7); Neutrophils Percent Auto 73.7 % (45.5-73.1); Platelet Count Result 147 k/mm3 (150-375); Red Blood Count 2.35 M/mm3 (4.2-5.4); Red Cell Distribution Width 16.1 % (11.5-14.5); White Blood Count 7.6 K/mm3 (4.5-10.0)
[2023-06-06 16:25] LABS: Prothrombin Time 14.2 Seconds (11.1-14.7)
[2023-06-06 16:26] LABS: Partial Thromboplastin Time 30.7 SECONDS (22.3-36.8)
[2023-06-06 16:34] LABS: Alanine Aminotransferase 19 U/L (6-35); Albumin Level 3.8 g/dL (3.5-5.1); Alkaline Phosphatase 158 U/L (38-126); Anion Gap 12 mmol/L (8-16); Aspartate Amino Transferase 28 U/L (14-36); Bilirubin,Total 0.7 mg/dL (0.2-1.3); Blood Urea Nitrogen 31 mg/dL (7-17); Calcium 8.4 mg/dL (8.4-10.2); Carbon Dioxide 31 mmol/L (22-30); Chloride 91 mmol/L (98-107); Estimated Glomerular Filt Rate 24; Glucose 184 mg/dL (65-110); Potassium 3.3 mmol/L (3.4-5.0); Sodium 134 mmol/L (137-145)
[2023-06-06 16:47] LABS: Schistocytes None Seen (NORMAL)
[2023-06-06 16:48] LABS: Anisocytosis 2+ (NORMAL); Hypochromasia 1+ (NORMAL)
--- NOTE | 2023-06-06 17:20 | ED.GIBLEED ---
HPI - GI Bleed General Chief complaint: GI Bleed Stated complaint: GI bleed Time Seen by Provider: 06/06/23 17:16 History of Present Illness HPI Narrative: Patient is a 78-year-old female with history of ESRD on hemodialysis, chronic anemia, prior GI bleed due to gastric ulcer here today with dark stools and low hemoglobin. She states that over the weekend she began having darker stools than normal. She notes that on Sunday she had her hemoglobin checked at dialysis and it was 9. She thinks that the dark stools have lightened up since that time but she has now felt quite fatigued. Her hemoglobin was checked today at dialysis and was found to be around 7. She denies any other sources of bleeding. She notes some associated shortness of breath, no chest pain. She notes that she had a colonoscopy and endoscopy before [facility] both were found to be okay. She states that she takes Protonix b.i.d.. No chest pain. Related Data Home Medications Medication Instructions Recorded Confirmed cyanocobalamin (vitamin B-12) 500 500 mcg PO DAILY 06/12/19 05/18/23 mcg tablet acetaminophen 500 mg tablet 1,000 mg PO Q6H PRN Pain 02/20/20 05/18/23 (Acetaminophen Extra Strength) cinacalcet 30 mg tablet 30 mg PO DAILY 03/29/20 05/18/23 sevelamer HCl 800 mg tablet 800 mg PO TID 03/29/20 05/18/23 atorvastatin 40 mg tablet 40 mg PO DAILY 10/25/21 05/18/23 calcium carbonate 200 mg calcium 400 mg PO QHS 10/25/21 05/18/23 (500 mg) chewable tablet (Tums) vitamin B complex and vitamin C 1 cap PO DAILY 10/25/21 05/18/23 no.20-folic acid 1 mg capsule (Renal Caps) carvedilol 12.5 mg tablet (Coreg) 6.25 mg PO DAILY 05/11/22 05/18/23 Allergies Allergy/AdvReac Type Severity Reaction Status Date / Time cephalexin Allergy Mild Rash Verified 06/06/23 15:56 enalapril Allergy Unknown cough Verified 06/06/23 15:56 pioglitazone Allergy Unknown Unknown Verified 06/06/23 15:56 tramadol Allergy Unknown hallucinati Verified 06/06/23 15:56 ons gabapentin Allergy Hallucinati Verified 06/06/23 15:56 ng cefazolin AdvReac Mild nausea/dizz Verified 06/06/23 15:56 iness Review of Systems Review of Systems: All systems reviewed & are unremarkable except as noted in HPI and below PMFSH Past Medical History Medical History Anemia of chronic disease Megaloblastic anemia AV fistula Left upper extremity Closed fracture of lateral portion of right tibial plateau (~2014) End stage renal disease on dialysis Dialysis days are Sunday, Sunday, and Sunday. She is on the transplant list at [facility]. Hiatal hernia Hyperlipidemia Hypertension Osteoarthritis of both knees Osteoporosis Paroxysmal atrial fibrillation Peripheral arterial disease History mid foot amputation. Pulmonary hypertension Echocardiogram August 2019: EF 65-70 %, indeterminate left ventricular diastolic function, mild biatrial enlargement, mild mitral valve regurgitation, moderate tricuspid regurgitation, mild pulmonary hypertension with RVSP of 39 Spinal stenosis at L4-L5 level High-grade central canal stenosis noted on MRI February 2017 Staphylococcal septicemia (~2013) Thoracic ascending aortic aneurysm 4.[address] scan from August 2019 Tubular adenoma of colon Type 2 diabetes mellitus Hemoglobin A1c was 6.6 in July 2019. Surgical History Surgical History Amputated toe of left foot Amputation at midfoot 5th digit right footAnd the great toe on the left History of arthroplasty of right ankle History of arthroscopy (~12/07/12) wrist History of bilateral cataract extraction History of colonoscopy (~12/02/15) History of knee replacement (~2015) right Presence of Watchman left atrial appendage closure device Family History Family History Father Hypertension Heart disease Mother Diabetes
[2023-06-06] MEDS: PANTOPRAZOLE SODIUM IV 40 MG VIAL 80 MG IV PUSH (17:54)
[2023-06-06] MEDS: SODIUM CHLORIDE 0.9% IV 250 ML 30 ML IV CONT (18:49)
[2023-06-06] MEDS: TUBING, BLOOD PLUM PUMP TUBING 1 EACH XX (18:50)
--- NOTE | 2023-06-06 20:48 | PM.IMHP ---
H&P: HPI History of Present Illness Date/Time: 06/06/23 20:48 Chief Complaint: low hemoglobin Narrative: This is a 78-year-old female with past medical history significant for congestive heart failure, chronic anemia, insulin-dependent diabetes mellitus, end-stage renal disease on hemodialysis, osteoporosis, paroxysmal atrial fibrillation lumbar spine stenosis peripheral arterial disease. Patient presented to the emergency room due to low hemoglobin. A denies any hematemesis, coffee-ground emesis, melena, bright red blood per rectum. States that has been feeling fatigued. Patient has been admitted for blood transfusion. Has had extensive workup in the past. EXAMINATION:? XR chest 1V portable Exam Date/Time:? 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 Comparison:? 12/25/2022. RESULT: Lines, tubes, and devices:? Vascular stent over the right apex, possibly subclavian. Atrial occlusion device. Lungs and pleura:? Mild diffuse reticular opacities. No focal consolidation. Cardiomediastinal silhouette:? Stable cardiomegaly. Other:? No acute osseous or upper abdominal finding. ? IMPRESSION: Mild interstitial edema. Cardiomegaly. Review of Systems Review of Systems: low hemoglobin Constitutional: Constitutional: Reports fatigue Eyes: Eyes: Denies change in vision ENT: Denies dysphagia and Denies odynophagia Cardiovascular: Cardiovascular: Denies chest pain, Denies radiating jaw, neck or arm pain and Denies palpitations Respiratory: Respiratory: Denies chest congestion, Denies cough and Denies dyspnea Gastrointestinal: Gastrointestinal: Denies abdominal pain, Denies melena, Denies hematochezia, Denies coffee ground emesis, Denies dyspepsia, Denies heartburn, Denies nausea, Denies vomiting and Denies hematemesis Genitourinary: Genitourinary: Denies dysuria Musculoskeletal: Musculoskeletal: Reports back pain Integumentary/Breasts: Skin/Breast: Denies rash Neurologic: Denies focal weakness and Denies Sensory deficit (Neuro) Psychiatric: Psychiatric: Reports no additional psychiatric complaints and Reports as per HPI Endocrine: Endocrine: Denies cold intolerance, Denies fatigue, Denies flushing, Denies heat intolerance, Denies polyphagia, Denies polydipsia and Denies palpitations Hematologic/Lymphatic: Hematologic/Lymphatic: Reports no additional hematologic/lymphatic complaints and Reports as per HPI Allergic/Immunologic: Allergic/Immunologic: Reports no additional allergic/immunologic complaints and Reports as per HPI PMFSH Past Medical History Medical History Anemia of chronic disease Megaloblastic anemia AV fistula Left upper extremity Closed fracture of lateral portion of right tibial plateau (~2014) End stage renal disease on dialysis Dialysis days are Sunday, Sunday, and Sunday. She is on the transplant list at [place]. Hiatal hernia Hyperlipidemia Hypertension Osteoarthritis of both knees Osteoporosis Paroxysmal atrial fibrillation Peripheral arterial disease History mid foot amputation. Pulmonary hypertension Echocardiogram August 2019: EF 65-70 %, indeterminate left ventricular diastolic function, mild biatrial enlargement, mild mitral valve regurgitation, moderate tricuspid regurgitation, mild pulmonary hypertension with RVSP of 39 Spinal stenosis at L4-L5 level High-grade central canal stenosis noted on MRI February 2017 Staphylococcal septicemia (~2013) Thoracic ascending aortic aneurysm 4.[address] scan from August 2019 Tubular adenoma of colon Type 2 diabetes mellitus Hemoglobin A1c was 6.6 in July 2019. Surgical History Surgical History Amputated toe of left foot Amputation at midfoot 5th digit right footAnd the great toe on the left History of arthroplasty of right ankle History of arthroscopy (~12/07/12) wrist History
--- NOTE | 2023-06-06 20:53 | ADMGEN ---
This patient, Shasta Obando, was admitted to [facility] Surg Room 306-02 at 20:53. Patient/family oriented to hospital policies and general routines including ID bracelet, bed and alarms, visiting hours, pain management, procedures, bathroom and other care routines, personal items, smoking policy, room service/diet, and visiting hours. Information on how to activate the Rapid Response Team has been discussed. Patient/Family are encouraged to report perceived risks to care and to ask questions if they do not understand what they are told or what they should do.
[2023-06-07] MEDS: traZODone HCL 50 MG TABLET PO ×2 (00:13→21:10)
[2023-06-07 06:00] VITALS: BP 155/53; PULSE 63; RESP 20; TEMP 36.4; O2SAT 100
--- NOTE | 2023-06-07 07:37 | PM.IMPN ---
Progress Note: A&P Assessment and Plan (1) Gastrointestinal bleed: Code(s): K92.2 - Gastrointestinal hemorrhage, unspecified Status: Acute Assessment and Plan: 06/07: Repeat labs are pending. Breathing easily. Patient states symptoms are better and stools are improved. Received one unit of prbc for hgb of 7.0. Not on anticoagulation and had scopes recently without acute findings. Additionally has anemia of chronic disease - multifactorial anemia. As hgb stable will start bland diet and plan to repeat labs in the am to ensure stability and likely discharge at that time. - If labs worsening in the am, consider GI consultation for additional options. (2) End stage renal disease on dialysis: Code(s): N18.6 - End stage renal disease; Z99.2 - Dependence on renal dialysis Status: Chronic Assessment and Plan: 06/07: Stable labs on admit. 31/2.0. Consult nephrology in the event doesn't discharge in timely fashion to make next dialysis appt. 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 Cont. Januvia. (4) Generalized weakness: Code(s): R53.1 - Weakness Status: Acute Assessment and Plan: 06/07: Will have pt eval to assist with discharge planning. Likely ok for home. (5) Atrial fibrillation: Qualifiers: Atrial fibrillation type: unspecified Qualified Code(s): I48.91 - Unspecified atrial fibrillation Code(s): I48.91 - Unspecified atrial fibrillation Status: Chronic Assessment and Plan: 06/07: S/P Watchman and is past need for anticoagulation. Stable rate. Cont. Carvedilol. (6) AV fistula: Code(s): I77.0 - Arteriovenous fistula, acquired Status: Acute (7) Hypertension: Qualifiers: Hypertension type: unspecified Qualified Code(s): I10 - Essential (primary) hypertension Code(s): I10 - Essential (primary) hypertension Status: Chronic Assessment and Plan: 06/07: Stable, resuming carvedilol. (8) Anemia of chronic disease: Code(s): D63.8 - Anemia in other chronic diseases classified elsewhere Status: Acute Assessment and Plan: 06/07: Chart review notes hx anemia of chronic disease, certainly affecting this current admission concerns. Plan Plan to repeat cbc in the am to document clinical stablility prior to discharge and assess if acute need for further investiative procedures. Diet: [place] low residue. Activity: As tolerated with PT Analgesia: Tylenol. VTE prophylaxis: Not indicated. Ulcer prophylaxis:Protonix BID. Glycemic control: Lantus. Januvia. Disposition: Expect 24-48 hours of further management. Time Spent With Patient Time with patient: 25 - 35 minutes Subjective Date/time seen: 06/07/23 07:37 Interval history: Shasta Obando is a 78 year old female with PMH of ESRD on dialysis, atrial fib s/p watchman procedure, htn, t2dm, and pad who presented with fatigue and dark stools. She reports to me that she has had dark stools for a few months, a little darker than usual last week and was improving in color over the last few days. At dialysis yesterday she was feeling fatigued and hgb was 7.0. She is not on chronic anticoagulation. She is on protonix. She had EGD/Colonoscopy within the last two months she reports. There were not findings of active bleeding at that time. She states that symptoms are not new and not acutely changed - and are improving. 06/07: Patient states breathing easily today. Denies pain. Review of Systems Review of Systems: All systems reviewed & are unremarkable e
[2023-06-07 11:51] LABS: Hematocrit 27.9 % (37.0-47.0); Hemoglobin 8.5 g/dL (12.0-15.0); Mean Corpuscular HGB Conc 30.5 g/dl (32-36); Mean Corpuscular Hemoglobin 30.2 pg (26-34); Mean Corpuscular Volume 99.3 fl (80-100); Mean Platelet Volume 11.3 fl (7.4-10.4); Platelet Count Result 161 k/mm3 (150-375); Red Blood Count 2.81 M/mm3 (4.2-5.4); Red Cell Distribution Width 16.9 % (11.5-14.5); White Blood Count 11.6 K/mm3 (4.5-10.0)
[2023-06-07] MEDS: CINACALCET 30 MG TABLET PO (11:57)
[2023-06-07] MEDS: VITAMIN B CMPLX/VIT C/FOLIC AC 1 CAPSULE 1 CAP PO (11:57)
[2023-06-07] MEDS: ACETAMINOPHEN 500 MG TABLET 1000 MG PO (11:57)
[2023-06-07 11:58] VITALS: PULSE 72
[2023-06-07] MEDS: carvediloL 6.25 MG TABLET PO (11:58)
[2023-06-07] MEDS: ATORVASTATIN 40 MG TABLET PO (11:58)
[2023-06-07] MEDS: CYANOCOBALAMIN 500 MCG TABLET PO (11:58)
[2023-06-07] MEDS: PANTOPRAZOLE 40 MG TABLET PO ×2 (12:00→21:10)
[2023-06-07 12:07] LABS: Anion Gap 14 mmol/L (8-16); Blood Urea Nitrogen 47 mg/dL (7-17); Calcium 7.9 mg/dL (8.4-10.2); Carbon Dioxide 29 mmol/L (22-30); Chloride 92 mmol/L (98-107); Estimated Glomerular Filt Rate 15; Glucose 215 mg/dL (65-110); Potassium 3.9 mmol/L (3.4-5.0); Sodium 135 mmol/L (137-145)
[2023-06-07] MEDS: SEVELAMER CARBONATE 800 MG TABLET PO ×2 (12:56→18:29)
[2023-06-07 14:00] VITALS: BP 148/63; PULSE 80; RESP 20; TEMP 36.9; O2SAT 98
--- NOTE | 2023-06-07 16:30 | PM.CNNEP ---
Assessment and Plan Assessment and plan (1) End stage renal disease: Code(s): N18.6 - End stage renal disease Status: Chronic Assessment and Plan: HD tomorrow and continue M/W/ schedule follow electrolytes, volume status, and clearance (2) Anemia: Qualifiers: Anemia type: unspecified type Qualified Code(s): D64.9 - Anemia, unspecified Code(s): D64.9 - Anemia, unspecified Status: Chronic Assessment and Plan: partly related to ESRD however, concern is for possible GI loss Gastroenterology consultation extensive work-up and evaluation noted in March 2023 PRBC transfusion per protocol Epogen with HD follow trend of H/H (3) Hypertension: Qualifiers: Hypertension type: unspecified Qualified Code(s): I10 - Essential (primary) hypertension Code(s): I10 - Essential (primary) hypertension Status: Chronic Assessment and Plan: reasonable control folloe hemodynamics (4) Type 2 diabetes mellitus: Qualifiers: 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 Thank you for allowing me to participate in the care of this patient. History of Present Illness Reason for Consult Consult date: 06/07/23 Reason for consult: end stage renal disease Chief Complaint Chief complaint: GI Bleed, Symptomatic Anemia History of Present Illness Narrative: The patient is a 78-year-old female with a past medical history as outlined below who presented to [facility] Emergency room yesterday afternoon for further evaluation of dark stools and fatigue. The patient reports that over the weekend she began noticing that her stools were darker than normal. Initially, she did not think much of it but then reports that when she had her dialysis treatment on Sunday, she was informed that her hemoglobin checked at that time was down to 9.0. Since that time, her stools have lightenee up but now she has felt a bit more fatigue than usual. Her hemoglobin was checked again at dialysis Yesterday and she was told it was down to 7.0. She reports no other symptoms other than some mild shortness of breath. However, given her complex medical history association with her notice symptoms and down trending hemoglobin, she presented to the emergency room for further assessment. Workup and evaluation in the emergency room demonstrated the patient to be hemodynamically stable. Her routine blood tests were done which demonstrated labs consistent with her known history of end-stage renal disease and confirmed her hemoglobin of 7.0. Given the concern for possible GI blood loss, IV Protonix was initiated and a packed red blood cell transfusion was ordered given her symptomatic anemia. She was subsequently admitted to hospital for further evaluation and therapy. Renal consultation was requested due to her end-stage renal disease. The patient normally dialyzes on a Sunday, Sunday, Sunday schedule under the care of Dr. Jacob Suarez at [facility]. From a dialysis perspective, she is compliant with her dialysis treatments and usually does not have any significant fluid gains in between her dialysis treatments. Her monthly labs are usually fairly stable as well. She tolerated her hemodialysis treatment yesterday at her outpatient dialysis unit without any issues or problems. She is due for dialysis tomorrow. Currently, at the time my visit, she has not appear to be any acute distress. Review of Systems Revie
[2023-06-07] MEDS: PHENYLEPH/SHARK OIL/MO/PETROL CREAM 26 GM 1 APPLIC RECTAL (18:29)
[2023-06-07] MEDS: DOCUSATE SODIUM 100 MG CAPSULE PO (18:29)
[2023-06-07] MEDS: CALCIUM CARBONATE (TUMS) 500 MG (200 MG ELEMENTAL) 400 MG PO (21:09)
[2023-06-07] MEDS: INSULIN GLARGINE (*BKC) 100 UNITS/ML 10 UNITS SUB-Q (21:11)
[2023-06-07 22:00] VITALS: BP 165/61; PULSE 71; RESP 24; TEMP 36.8; O2SAT 90
[2023-06-07 23:30] LABS: Glucose Point of Care 178 mg/dl (65-105)
[2023-06-08] VITALS (19 sets, daily range): BP systolic 131–173; BP diastolic 49–80; PULSE 59–80; RESP 14–18; TEMP 36.3–37; O2SAT 91–92
[2023-06-08 06:54] LABS: Hematocrit 27.2 % (37.0-47.0); Hemoglobin 8.1 g/dL (12.0-15.0); Mean Corpuscular HGB Conc 29.8 g/dl (32-36); Mean Corpuscular Hemoglobin 29.9 pg (26-34); Mean Corpuscular Volume 100.4 fl (80-100); Mean Platelet Volume 11.6 fl (7.4-10.4); Platelet Count Result 163 k/mm3 (150-375); Red Blood Count 2.71 M/mm3 (4.2-5.4); Red Cell Distribution Width 16.9 % (11.5-14.5); White Blood Count 10.4 K/mm3 (4.5-10.0)
[2023-06-08 07:08] LABS: Alanine Aminotransferase 16 U/L (6-35); Albumin Level 3.5 g/dL (3.5-5.1); Alkaline Phosphatase 113 U/L (38-126); Anion Gap 11 mmol/L (8-16); Aspartate Amino Transferase 25 U/L (14-36); Bilirubin,Total 0.7 mg/dL (0.2-1.3); Blood Urea Nitrogen 54 mg/dL (7-17); Calcium 7.2 mg/dL (8.4-10.2); Carbon Dioxide 32 mmol/L (22-30); Chloride 92 mmol/L (98-107); Estimated Glomerular Filt Rate 10; Glucose 89 mg/dL (65-110); Magnesium 1.9 mg/dL (1.6-2.3); Phosphorus 2.9 mg/dL (2.5-4.5); Potassium 3.9 mmol/L (3.4-5.0); Sodium 135 mmol/L (137-145)
[2023-06-08 08:22] LABS: Hepatitis B Surface Antigen Negative (Negative)
[2023-06-08 08:44] LABS: Hepatitis B Surface Anti Res Positive
[2023-06-08] MEDS: carvediloL 6.25 MG TABLET PO (08:52)
[2023-06-08] MEDS: ATORVASTATIN 40 MG TABLET PO (08:52)
[2023-06-08] MEDS: SEVELAMER CARBONATE 800 MG TABLET PO ×2 (08:52→11:37)
[2023-06-08] MEDS: CINACALCET 30 MG TABLET PO (08:52)
[2023-06-08] MEDS: VITAMIN B CMPLX/VIT C/FOLIC AC 1 CAPSULE 1 CAP PO (08:53)
[2023-06-08] MEDS: PANTOPRAZOLE 40 MG TABLET PO ×2 (08:53→20:43)
[2023-06-08] MEDS: CYANOCOBALAMIN 500 MCG TABLET PO (08:54)
--- NOTE | 2023-06-08 14:28 | PC.NURSE ---
patient to dialysis per bed.
--- NOTE | 2023-06-08 15:01 | PM.PNNEP ---
Progress Note: A&P Assessment and Plan (1) End stage renal disease: Code(s): N18.6 - End stage renal disease Status: Chronic Assessment and Plan: HD today continue M/W/F outpatient ddialysis schedule follow electrolytes, volume status, and clearance (2) Anemia: Qualifiers: Anemia type: unspecified type Qualified Code(s): D64.9 - Anemia, unspecified Code(s): D64.9 - Anemia, unspecified Status: Chronic Assessment and Plan: partly related to ESRD however, concern is for possible GI loss Gastroenterology consulted extensive work-up and evaluation noted in March 2023 PRBC transfusion per protocol Epogen with HD follow trend of H/H (3) Hypertension: Qualifiers: Hypertension type: unspecified Qualified Code(s): I10 - Essential (primary) hypertension Code(s): I10 - Essential (primary) hypertension Status: Chronic Assessment and Plan: reasonable control follow trend of hemodynamics (4) Type 2 diabetes mellitus: Qualifiers: Diabetes mellitus half-way insulin use: without half-way use Diabetes mellitus complication status: without complication Qualified Code(s): E11.9 - Type 2 diabetes mellitus without complications Code(s): E11.9 - Type 2 diabetes mellitus without complications Status: Chronic Assessment and Plan: follow accuchecks glycemic control per hospitalists Will continue to follow. Subjective Date/time seen: 06/08/23 15:01 Interval history: Follow-up for end stage renal disease on hemodialysis. Tolerating hemodialysis treatment at the time of my visit (seen on HD at 2:50PM); overall, feels better since PRBC transfusion; no apparent distresss noted; no other issues/events overnight or earlier this AM. Exam Narrative: General: elderly and frail female in NAD Heart: normal S1 and S2; no rub Lungs: clear to auscultation Abdomen: soft, nontender, nondistended, positive bowel sounds Extremities: no cyanosis or clubbing; no edema Skin: warm and dry Objective Data Vital Signs Vital Signs: Vital Signs Temp Pulse Resp BP Pulse Ox O2 Del Method 06/08/23 11:46 Room Air 06/08/23 08:52 75 06/08/23 06:00 98.3 F 76 14 163/62 H 91 06/07/23 22:00 98.3 F 71 24 H 165/61 H 90 06/07/23 20:00 Room Air Intake/Output Intake/Output: Intake & Output 06/05/23 06/06/23 06/07/23 06/08/23 23:59 23:59 23:59 23:59 Intake Total 590 1080 718 Balance 590 1080 718 Meds/Results Medications: Active Medications Generic Name Dose Route Start Last Admin Trade Name Freq PRN Reason Stop Dose Admin Acetaminophen 1,000 mg 06/07/23 07:41 06/07/23 11:57 Acetaminophen 500 Mg Tablet PO 1,000 mg Q6H PRN Administration Pain Atorvastatin Calcium 40 mg 06/07/23 09:00 06/08/23 08:52 Atorvastatin 40 Mg Tablet PO 40 mg DAILY THERESE Administration Calcium Carbonate 400 mg 06/07/23 21:00 06/07/23 21:09 Calcium Carbonate (Tums) 500 Mg (200 Mg Elemental) PO 400 mg QHS THERESE Administration Carvedilol 6.25 mg 06/07/23 09:00 06/08/23 08:52 Carvedilol 6.25 Mg Tablet PO 6.25 mg DAILY THERESE Administration Cinacalcet 30 mg 06/07/23 09:00 06/08/23 08:52 Cinacalcet 30 Mg Tablet PO 30 mg DAILY THERESE Administration Cyanocobalamin 500 mcg 06/07/23 09:00 06/08/23 08:54 Cyanocobalamin 500 Mcg Tablet PO 500 mcg DAILY THERESE Administration Dextrose 12.5 gm 06/07/23 07:46 Dextrose 50% 25 Gm/50 Ml Syringe IV PUSH PRN PRN Hypoglycemia Protocol Epoetin Osn-epbx 10,000 units 06/08/23 20:11 Epoetin Son-Epbx 10,000 Units/Ml Vial IV PUSH 06/08/23 20:12 ONCE ONE Glucagon 1 mg 06/07/23 07:46 Glucagon For Inj 1 Mg Vial IM PRN PRN Hypoglycemia Protocol Glucose 15 gm 06/07/23 07:46 Glucose Oral Gel 15 Gm Of Glucse In 37.5 Gm Tube PO PRN PRN
--- NOTE | 2023-06-08 15:23 | PM.IMPN ---
Progress Note: A&P Assessment and Plan (1) GI (gastrointestinal bleed): Code(s): K92.2 - Gastrointestinal hemorrhage, unspecified Status: Acute (2) Generalized weakness: Code(s): R53.1 - Weakness Status: Acute (3) Atrial fibrillation: Qualifiers: Atrial fibrillation type: unspecified Qualified Code(s): I48.91 - Unspecified atrial fibrillation Code(s): I48.91 - Unspecified atrial fibrillation Status: Chronic (4) End stage renal disease on dialysis: Code(s): N18.6 - End stage renal disease; Z99.2 - Dependence on renal dialysis Status: Chronic (5) Anemia of chronic disease: Code(s): D63.8 - Anemia in other chronic diseases classified elsewhere Status: Acute Plan Shasta Obando is a 78 year old female with PMH of ESRD on dialysis, atrial fib s/p watchman procedure, htn, t2dm, and pad who presented with fatigue and dark stools. She reports to me that she has had dark stools for a few months, a little darker than usual last week and was improving in color over the last few days. At dialysis yesterday she was feeling fatigued and hgb was 7.0. She is not on chronic anticoagulation. She is on protonix. She had EGD/Colonoscopy within the last two months she reports. There were not findings of active bleeding at that time. She states that symptoms are not new and not acutely changed - and are improving. Chest x-ray with mild interstitial edema and cardiomegaly. rEceived 1 unit of packed red blood cell transfusion on 06/06/2023. Hemoglobin and remained stable. Nephrology on board for inpatient hemodialysis. EGD with polyp at the GE junction which was removed. Colonoscopy with polyp tubular adenoma done in March 2023 Will consult GI. Hold occult blood Ferritin high B12 high Erythropoietin injection given by Nephrology Subjective Date/time seen: 06/08/23 15:23 Interval history: Shasta Obando is a 78 year old female with PMH of ESRD on dialysis, atrial fib s/p watchman procedure, htn, t2dm, and pad who presented with fatigue and dark stools. She reports to me that she has had dark stools for a few months, a little darker than usual last week and was improving in color over the last few days. At dialysis yesterday she was feeling fatigued and hgb was 7.0. She is not on chronic anticoagulation. She is on protonix. She had EGD/Colonoscopy within the last two months she reports. There were not findings of active bleeding at that time. She states that symptoms are not new and not acutely changed - and are improving. Chest x-ray with mild interstitial edema and cardiomegaly. rEceived 1 unit of packed red blood cell transfusion on 06/06/2023. Hemoglobin and remained stable Review of Systems Review of Systems: All systems reviewed & are unremarkable except as noted in HPI and below Exam Narrative: GENERAL APPEARANCE: Appears to be in no acute distress. HEAD: normocephalic atraumatic EYES: PERRL, EOMI. Vision grossly intact. ENT: Hearing grossly intact, no nasal discharge NECK: Neck supple, trachea midline. CARDIAC: Rhythm is regular. No murmurs, rubs, or gallops. No cyanosis or pallor. Extremities are warm and well perfused. LUNGS: Slight crackles in the bilateral bases. Respirations even and unlabored. ABDOMEN: BS positive x 4 quadrants. Soft, nondistended, nontender. No guarding or rebound. MSK: No joint tenderness/swelling, fair strength in all extremities. PERIPHERAL VASCULAR: Peripheral pulses palpable. Normal perfusion, cap refill <2 seconds. BLLE with moderate brawny edema. NEURO: Follows commands. No focal deficits. SKIN: [place] without lesions or eruptions. PSYCH: Stable, no paranoia or delusional thinking. Objective Data Vital Signs Vital Signs: Vital Signs - 24 hr 06/07/23 20:00 06/07/23 22:00 06/08/23 06:00 Temperature 98.3 F 98.3 F Pulse Rate 71 76 Respiratory Rate 24 H 14 Blood Pressure 165/61 H 163/62 H Pulse Oximetry
[2023-06-08] MEDS: EPOETIN ALFA-EPBX 10,000 UNITS/ML VIAL 10000 UNITS IV PUSH (16:36)
[2023-06-08 17:17] LABS: Iron 33 ug/dL (37-170)
[2023-06-08 17:26] LABS: Percent Iron Saturation 14 % (20-50)
[2023-06-08 18:39] LABS: Folic Acid > 20.0 ng/mL (2.76->20); Vitamin B12 > 1000.0 pg/mL (239-931)
[2023-06-08 20:41] LABS: Glucose Point of Care 164 mg/dl (65-105)
[2023-06-08] MEDS: CALCIUM CARBONATE (TUMS) 500 MG (200 MG ELEMENTAL) 400 MG PO (20:42)
[2023-06-08] MEDS: INSULIN GLARGINE (*BKC) 100 UNITS/ML 10 UNITS SUB-Q (20:43)
[2023-06-08] MEDS: traZODone HCL 50 MG TABLET PO (20:43)
[2023-06-09 05:58] VITALS: BP 152/66; PULSE 81; RESP 14; TEMP 36.7; O2SAT 91
[2023-06-09 06:13] LABS: Basophils Percent Auto 0.4 % (0.2-1.2); Eosinophils Absolute Auto 0.1 K/mm3 (0-0.3); Eosinophils Percent Auto 1.7 % (0-4.4); Hematocrit 29.1 % (37.0-47.0); Hemoglobin 8.7 g/dL (12.0-15.0); Immature Granulocyte Absolute 0.03 K/mm3 (0.00-0.031); Immature Granulocyte Percent A 0.4 % (0-0.5); Lymphocytes Absolute Auto 1.47 K/mm3 (0.9-3.2); Lymphocytes Percent Auto 20.8 % (18.3-44.2); Mean Corpuscular HGB Conc 29.9 g/dl (32-36); Mean Corpuscular Hemoglobin 30.2 pg (26-34); Mean Platelet Volume 10.8 fl (7.4-10.4); Monocytes Absolute Auto 0.9 K/mm3 (0.1-0.6); Monocytes Percent Auto 12.4 % (2.6-8.5); Neutrophils Absolute Auto 4.5 K/mm3 (1.3-6.7); Neutrophils Percent Auto 64.3 % (45.5-73.1); Platelet Count Result 162 k/mm3 (150-375); Red Blood Count 2.88 M/mm3 (4.2-5.4); Red Cell Distribution Width 17.2 % (11.5-14.5); White Blood Count 7.1 K/mm3 (4.5-10.0)
[2023-06-09 06:26] LABS: Alanine Aminotransferase 18 U/L (6-35); Albumin Level 3.9 g/dL (3.5-5.1); Alkaline Phosphatase 126 U/L (38-126); Anion Gap 12 mmol/L (8-16); Aspartate Amino Transferase 25 U/L (14-36); Bilirubin,Total 0.7 mg/dL (0.2-1.3); Blood Urea Nitrogen 23 mg/dL (7-17); Calcium 8.5 mg/dL (8.4-10.2); Carbon Dioxide 29 mmol/L (22-30); Chloride 98 mmol/L (98-107); Estimated Glomerular Filt Rate 16; Glucose 109 mg/dL (65-110); Potassium 4.2 mmol/L (3.4-5.0); Sodium 139 mmol/L (137-145)
[2023-06-09 07:03] LABS: Hypochromasia 1+ (NORMAL); Macrocytosis 1+ (NORMAL); Platelet Estimate Adequate (Adequate)
[2023-06-09 07:04] LABS: Schistocytes None Seen (NORMAL)
--- NOTE | 2023-06-09 08:01 | WPDGICN ---
Assessment and Plan Assessment and plan (1) Anemia: Qualifiers: Anemia type: other cause Other causes of anemia: other cause, not classified Qualified Code(s): D64.89 - Other specified anemias Code(s): D64.9 - Anemia, unspecified Status: Acute Assessment and Plan: Patient with chronic anemia. Currently followed by Dr. Allen. This is felt to be macrocytic typically. She has iron indices consistent with anemia of chronic disease. Folate B12 levels are normal. No obvious bleeding at this time. Previously noted have Hemoccult-positive stools had rather extensive workup in March. Plan to repeat stool Hemoccult at this time. At present no evidence for ongoing active blood loss. Would not anticipate any further invasive testing unless active bleeding described. Not evident at this time. (2) End stage renal disease on dialysis: Code(s): N18.6 - End stage renal disease; Z99.2 - Dependence on renal dialysis Status: Chronic Assessment and Plan: Renal Service following patient for end-stage renal disease and dialysis. (3) Atrial fibrillation: Qualifiers: Atrial fibrillation type: unspecified Qualified Code(s): I48.91 - Unspecified atrial fibrillation Code(s): I48.91 - Unspecified atrial fibrillation Status: Chronic GI Consult Note Consult date/time: 06/09/23 08:01 Reason for consult: Persistent anemia HPI: Shasta Obando is a 78 year old female I am asked to see because of patient's anemia. Patient has a history of end-stage renal disease for which she is on dialysis. She is known to have anemia of chronic disease. Recently found to have a hemoglobin of approximately 7 whereas her baseline is typically closer to 9. For this reason admitted the hospital. Patient reports that occasionally will have dark stools. She denies any obvious bleeding. Currently complains of some constipation. Patient hospitalized with anemia in March of this year a colonoscopy revealed a benign polyp in the ascending colon. EGD revealed benign polyps at the GE junction. No evidence for GI blood loss was noted during that hospital stay. Patient currently admitted the hospital with iron studies consistent with anemia of chronic disease with low iron, low TIBC. Elevated ferritin. Stool hemoccult not available for review. Review of Systems Review of Systems: Review of systems noncontributory. [facility] Past Medical History Medical History Anemia of chronic disease Megaloblastic anemia AV fistula Left upper extremity Closed fracture of lateral portion of right tibial plateau (~2014) End stage renal disease on dialysis Dialysis days are Sunday, Sunday, and Sunday. She is on the transplant list at [facility]. Hiatal hernia Hyperlipidemia Hypertension Osteoarthritis of both knees Osteoporosis Paroxysmal atrial fibrillation Peripheral arterial disease History mid foot amputation. Pulmonary hypertension Echocardiogram August 2019: EF 65-70 %, indeterminate left ventricular diastolic function, mild biatrial enlargement, mild mitral valve regurgitation, moderate tricuspid regurgitation, mild pulmonary hypertension with RVSP of 39 Spinal stenosis at L4-L5 level High-grade central canal stenosis noted on MRI February 2017 Staphylococcal septicemia (~2013) Thoracic ascending aortic aneurysm 4.[address] scan from August 2019 Tubular adenoma of colon Type 2 diabetes mellitus Hemoglobin A1c was 6.6 in July 2019. Surgical History Surgical History Amputated toe of left foot Amputation at midfoot 5th digit right footAnd the great toe on the left History of arthroplasty of right ankle History of arthroscopy (~12/07/12) wrist History of bilateral cataract extraction History of colonoscopy (~12/02/15) History of knee replacement (~2015)
[2023-06-09 09:06] VITALS: PULSE 80
[2023-06-09] MEDS: SEVELAMER CARBONATE 800 MG TABLET PO ×2 (09:06→12:43)
[2023-06-09] MEDS: carvediloL 6.25 MG TABLET PO (09:06)
[2023-06-09] MEDS: VITAMIN B CMPLX/VIT C/FOLIC AC 1 CAPSULE 1 CAP PO (09:06)
[2023-06-09] MEDS: ATORVASTATIN 40 MG TABLET PO (09:06)
[2023-06-09] MEDS: CYANOCOBALAMIN 500 MCG TABLET PO (09:06)
[2023-06-09] MEDS: PANTOPRAZOLE 40 MG TABLET PO (09:07)
[2023-06-09] MEDS: CINACALCET 30 MG TABLET PO (09:07)
[2023-06-09] MEDS: PHENYLEPH/SHARK OIL/MO/PETROL CREAM 26 GM 1 APPLIC RECTAL (09:07)
--- NOTE | 2023-06-09 12:03 | PM.PNNEP ---
Progress Note: A&P Assessment and Plan (1) End stage renal disease: Code(s): N18.6 - End stage renal disease Status: Chronic Assessment and Plan: HD yesterday continue M// outpatient ddialysis schedule follow electrolytes, volume status, and clearance (2) Anemia: Qualifiers: Anemia type: unspecified type Qualified Code(s): D64.9 - Anemia, unspecified Code(s): D64.9 - Anemia, unspecified Status: Chronic Assessment and Plan: partly related to ESRD however, concern is for possible GI loss Gastroenterology recommendations noted extensive work-up and evaluation noted in March 2023 PRBC transfusion per protocol Epogen with HD follow trend of H/H (3) Hypertension: Qualifiers: Hypertension type: unspecified Qualified Code(s): I10 - Essential (primary) hypertension Code(s): I10 - Essential (primary) hypertension Status: Chronic Assessment and Plan: reasonable control follow trend of hemodynamics (4) Type 2 diabetes mellitus: Qualifiers: Diabetes mellitus half-way insulin use: without roasterman use Diabetes mellitus complication status: without complication Qualified Code(s): E11.9 - Type 2 diabetes mellitus without complications Code(s): E11.9 - Type 2 diabetes mellitus without complications Status: Chronic Assessment and Plan: follow accuchecks glycemic control per hospitalists Will continue to follow. Subjective Date/time seen: 06/09/23 12:03 Interval history: Follow-up for end stage renal disease on hemodialysis. Tolerated dialysis treatment yesterday without any issues or problems; GI recommendations noted earlier today -- no invasive testing planned as of yet; H/H relatively stable at this time; no issues/events overnight or earlier this morning. Exam Narrative: General: elderly and frail female in NAD Heart: normal S1 and S2; no rub Lungs: clear to auscultation Abdomen: soft, nontender, nondistended, positive bowel sounds Extremities: no cyanosis or clubbing; no edema Skin: warm and intact Objective Data Vital Signs Vital Signs: Vital Signs Temp Pulse Resp BP Pulse Ox O2 Del Method O2 Flow Rate 06/09/23 08:00 Room Air 06/09/23 09:06 80 06/09/23 05:58 98.0 F 81 14 152/66 H 91 06/08/23 21:17 98.1 F 66 14 168/50 H 92 06/08/23 18:13 97.8 F 76 18 170/69 H 06/08/23 17:56 77 168/69 H 06/08/23 17:45 69 173/58 H 06/08/23 17:30 67 172/71 H 06/08/23 17:15 73 162/80 H 06/08/23 17:00 69 158/65 H 06/08/23 16:45 72 165/72 H 06/08/23 16:30 64 144/52 H 06/08/23 16:00 74 167/68 H 06/08/23 15:45 80 168/75 H 06/08/23 15:30 61 149/59 H 06/08/23 15:15 60 153/53 H 06/08/23 15:00 61 148/71 H 06/08/23 14:45 59 L 139/60 06/08/23 14:41 61 131/49 L 06/08/23 14:31 97.4 F L 59 L 18 140/50 L 06/08/23 14:31 0 Intake/Output Intake/Output: Intake & Output 06/06/23 06/07/23 06/08/23 06/09/23 23:59 23:59 23:59 23:59 Intake Total 590 3320 687 2668 Output Total 2500 Balance 590 1080 -1782 1160 Meds/Results Radiology Results: ITS Impressions Chest X-Ray 06/06/23 18:25 IMPRESSION: Mild interstitial edema. Cardiomegaly. Labs Labs: Laboratory Tests 06/09/23 06:06 06/09/23 06:05 Sodium 139 Potassium 4.2 Chloride 98 Carbon Dioxide 29 Anion Gap 12 BUN 23 H D Creatinine 2.80 H Estim Creat Clear Calc Not Reportable Estimated GFR 16 L Glucose 109 Calcium 8.5 Magnesium 2.0 Total Bilirubin 0.7 AST 25 ALT 18 Alkaline Phosphatase 126 Total Protein 7.0 Albumin 3.9 AMG Follow-up Billing Hospital Follow-up Hospital Follow-up: [id number] [facility]
--- NOTE | 2023-06-09 12:51 | PM.DS ---
DS: Admitting Diagnosis Discharge Date 06/09/2023 Admitting Diagnosis Anemia DS: Discharge Diagnosis Discharge Diagnosis (1) GI (gastrointestinal bleed): Code(s): K92.2 - Gastrointestinal hemorrhage, unspecified Status: Acute (2) Generalized weakness: Code(s): R53.1 - Weakness Status: Acute (3) Atrial fibrillation: Qualifiers: Atrial fibrillation type: unspecified Qualified Code(s): I48.91 - Unspecified atrial fibrillation Code(s): I48.91 - Unspecified atrial fibrillation Status: Chronic (4) End stage renal disease on dialysis: Code(s): N18.6 - End stage renal disease; Z99.2 - Dependence on renal dialysis Status: Chronic (5) Anemia of chronic disease: Code(s): D63.8 - Anemia in other chronic diseases classified elsewhere Status: Acute DS: Summary Hospital Course Hospital Course: Shasta Obando is a 78 year old female with PMH of ESRD on dialysis, atrial fib s/p watchman procedure, htn, t2dm, and pad who presented with fatigue and dark stools.? She reports to me that she has had dark stools for a few months, a little darker than usual last week and was improving in color over the last few days.? At dialysis yesterday she was feeling fatigued and hgb was 7.0.? She is not on chronic anticoagulation.? She is on protonix.? She had EGD/Colonoscopy within the last two months she reports.? There were not findings of active bleeding at that time.? She states that symptoms are not new and not acutely changed - and are improving.? Chest x-ray with mild interstitial edema and cardiomegaly.? received 1 unit of packed red blood cell transfusion on 06/06/2023.? Hemoglobin and remained stable.? Nephrology on board for inpatient hemodialysis.? EGD with polyp at the GE junction which was removed.? Colonoscopy with polyp tubular adenoma done in March 2023 GI consulted. h and h remained stable. Ferritin high B12 high Erythropoietin injection given by Nephrology fu with nephrology and hematology as op basis. Time Spent with Patient Time attestation: Total time spent providing and/or coordinating discharge services: 35 minutes Exam Narrative: GENERAL APPEARANCE: Appears to be in no acute distress. HEAD: normocephalic atraumatic EYES: PERRL, EOMI. Vision grossly intact. ENT: Hearing grossly intact, no nasal discharge NECK: Neck supple, trachea midline. CARDIAC: Rhythm is regular. No murmurs, rubs, or gallops. No cyanosis or pallor. Extremities are warm and well perfused. LUNGS: Slight crackles in the bilateral bases. Respirations even and unlabored. ABDOMEN: BS positive x 4 quadrants. Soft, nondistended, nontender. No guarding or rebound. MSK: No joint tenderness/swelling, fair strength in all extremities. PERIPHERAL VASCULAR: Peripheral pulses palpable. Normal perfusion, cap refill <2 seconds. BLE with moderate brawny edema. NEURO: Follows commands. No focal deficits. SKIN: [place] without lesions or eruptions. PSYCH: Stable, no paranoia or delusional thinking. DS: Data Data Completed and Pending Labs on day of discharge: Labs from last 24 hours 06/09/23 06/09/23 06/08/23 06:06 06:05 20:38 WBC 7.1 RBC 2.88 L Hgb 8.7 L Hct 29.1 L MCV 101.0 H MCH 30.2 MCHC 29.9 L RDW 17.2 H Plt Count 162 MPV 10.8 H Immature Gran % (Auto) 0.4 Neut % (Auto) 64.3 Lymph % (Auto) 20.8 [place] % (Auto) 12.4 H Eos % (Auto) 1.7 Baso % (Auto) 0.4 Lymph # (Auto) 1.47 [place] # (Auto) 0.9 H Eos # (Auto) 0.1 Baso # (Auto) 0.0 Abs Immat Gran (auto) 0.03 Absolute Neuts (auto) 4.5 Absolute Nucleated RBC 0.0 Nucleated RBC % 0.0 Platelet Estimate Adequate Hypochromasia 1+ Macrocytosis 1+ Schistocytes None seen Sodium 139 Potassium 4.2 Chloride 98 Carbon Dioxide 29 Anion Gap 12 BUN 23 H D Creatinine 2.80 H Estim Creat Clear Calc Not Reportable Estimated GFR 16 L Glucose
== END 2023-06-09 14:00 | disposition home or self-care (01) ==
LOC: ANHED 19:21 → ANH3MEDSUR 20:44
PROVIDERS: Internal Medicine Gastroenterology; Internal Medicine Nephrology; Nurse Practitioner Family; Admitting Provider Internal Medicine; Emergency Provider Student in an Organized Health Care Education/Training Program; PCP Family Medicine; Visit Provider Internal Medicine
DX: K92.2 Gastrointestinal hemorrhage, unspecified (principal); R53.1 Weakness; I48.91 Unspecified atrial fibrillation; I13.2 Hypertensive heart and chronic kidney disease with heart failure and with stage 5 chronic kidney disease, or end stage renal disease; I50.9 Heart failure, unspecified; E11.22 Type 2 diabetes mellitus with diabetic chronic kidney disease; N18.6 End stage renal disease; Z99.2 Dependence on renal dialysis; D63.1 Anemia in chronic kidney disease; E11.51 Type 2 diabetes mellitus with diabetic peripheral angiopathy without gangrene; R53.83 Other fatigue; M81.0 Age-related osteoporosis without current pathological fracture; I71.21 Aneurysm of the ascending aorta, without rupture; E78.5 Hyperlipidemia, unspecified; I08.3 Combined rheumatic disorders of mitral, aortic and tricuspid valves; Z95.818 Presence of other cardiac implants and grafts; R06.02 Shortness of breath; Z79.82 Long term (current) use of aspirin; Z79.84 Long term (current) use of oral hypoglycemic drugs; Z79.899 Other long term (current) drug therapy; Z82.49 Family history of ischemic heart disease and other diseases of the circulatory system; Z83.3 Family history of diabetes mellitus
CPT/HCPCS: 36415; 36430; 71045; 80048; 80053; 82607; 82728; 82746; 82948; 83540; 83550; 83735; 84100; 85025; 85027; 85610; 85730; 86706; 86850; 86900; 86901; 86923; 87340; 96374; 97161; 99285; A9270; C9113; G0257; G0378; J1815; J7030; J7050; P9016; Q5105

== ENCOUNTER 2023-06-26 08:45 | Outpatient (RCR) | payer MEDICARE, MEDICAID, SELFPAY ==
--- NOTE | 2023-06-20 15:53 | PTOPEVAL1 ---
Assessment and note entered by Travis Andersen, PT, DPT Evaluation Information Assessment Status Evaluation Diagnosis recurrent falls Subjective Information Pt states about 3 weeks ago she fell out of bed onto her L side. X-rays were negative. She states now she is struggling to get physically out of bed without assistance. She states once she is OOB she is good. This has been her only fall. She does not report any pain currently. She states she is using a rollator currently d/t being anemic. Reported Pain Level Pain Score 0: Self Report Assessment PT Clinical Summary Shasta presents to therapy today for her initial evaluation with a diagnosis of recurrent falls. Today she demonstrates decreased functional strength. She demonstrates times/scores on the 2min walk, Tinetti, and 5xSTS test that place her at an increased risk of falls. Skilled therapy services are indicated to improve her functional strength and balance, endurance, and to return to PLOF. Plan of Care Interventions Gait Training,Hot Pack/Cold Pack,Manual Therapy, Neuro Re-education,Patient/Caregiver Educati, Therapeutic Activities,Therapeutic Exercise PT Services Indicated Yes Treatment Frequency and 2x/wk for 8 visits Duration These treatments will address the objective and functional deficits as defined above. The patient will be advanced safely and appropriately in order for the patient to progress towards his/her prior level of function. Additional exercises will be introduced and as well as a comprehensive home exercise program upon discharge, if needed, ?to ensure carryover of functional gains achieved in the clinic. This treatment plan has been reviewed and agreement upon by the patient.
--- NOTE | 2023-06-20 15:54 | OPREHPOC ---
Outpatient Therapy Plan of Care This is a Multidisciplinary Plan of Care that may contain components documented by all disciplines (PT, OT, and ST.) PT Problem 1 PT Problem #1 Knowledge Deficit PT Goal 1 Goal Pt to be IND with issued HEP Target Visit 8 PT Goal 1 Goal Pt to improve 2 min walk distance from 180ft to 250ft. Target Visit 8 PT Goal 2 Goal Pt to return to ambulating with a cane primarily. Target Visit 8 PT Problem 3 PT Problem #3 Impaired Balance PT Goal 1 Goal Pt to improve her Tinetti score from 17/28 to 22/ 28. Target Visit 8 PT Problem 4 PT Problem #4 Impaired Strength PT Goal 1 Goal Pt to be able to demonstrate 5 sit to stand without UE support and in less than 20s. Target Visit 8 PT Goal 2 Goal Pt to improve BLE to grossly 4/5. Target Visit 8
--- NOTE | 2023-06-29 15:48 | PCPTNOTE ---
Patient no call no showed this date.
--- NOTE | 2023-07-04 15:45 | PCPTNOTE ---
Patient canceled appointment due to being tired from walking too much.
--- NOTE | 2023-07-05 10:52 | PCPTNOTE ---
Patient did not show up for scheduled appointment this date. Called and spoke with pt, she states she is still sick and forgot to call. Confirmed her appointment on 07/10/23.
--- NOTE | 2023-07-10 14:30 | PCPTNOTE ---
Patient no showed to appointment this date. Called and left voicemail.
--- NOTE | 2023-07-12 17:21 | PTOPDC ---
Assessment and note entered by Travis Andersen, PT, DPT Evaluation Information Assessment Status Discharge - Pt Not Present Diagnosis recurrent falls Subjective Information Pt no call no showed for todays appointment. She will be discharged at this time d/t therapy attendance policy, pt call and LVM informing her of this. Pt may be better suited for therapy services. Assessment PT Clinical Summary Pt was evaluated on 06/20/23, since then she attended 1, cancelled 1, and no showed 4 appointments.
== END 2023-07-13 10:10 | disposition home or self-care (01) ==
LOC: ANHGOSHPT 08:45
PROVIDERS: PCP Family Medicine; Visit Provider Family Medicine
DX: R53.81 Other malaise (principal); Z91.81 History of falling
CPT/HCPCS: 97110; 97112; 97161; 99199

== ENCOUNTER 2023-12-18 09:13 | Outpatient (CLI) | payer MEDICARE, MEDICAID, SELFPAY ==
[2023-12-18 13:13] LABS: Cholesterol 100 mg/dL (0-200); HDL Direct 44 mg/dL; Triglycerides 104 mg/dL (<150)
[2023-12-18 13:24] LABS: LDL Cholesterol Direct 46 mg/dL
[2023-12-18 18:56] LABS: Hemoglobin A1C 6.5 % (<5.7)
== END 2023-12-18 09:14 | disposition home or self-care (01) ==
LOC: ANHGOSHLAB 09:15
PROVIDERS: PCP Family Medicine; Visit Provider Family Medicine
DX: E11.9 Type 2 diabetes mellitus without complications (principal)
CPT/HCPCS: 36415; 80061; 83036

== ENCOUNTER 2024-02-26 08:58 | Outpatient (CLI) | payer MEDICARE, MEDICAID, SELFPAY ==
[2024-02-26 16:11] LABS: Uric Acid 3.3 mg/dL (2.5-7.5)
== END 2024-02-26 08:59 | disposition home or self-care (01) ==
LOC: ANHGOSHLAB 08:59
PROVIDERS: PCP Family Medicine; Visit Provider Family Medicine
DX: M79.673 Pain in unspecified foot (principal)
CPT/HCPCS: 36415; 84550

== ENCOUNTER 2024-03-18 08:45 | Outpatient (RCR) | payer MEDICARE, MEDICAID, SELFPAY ==
--- NOTE | 2023-12-25 09:05 | OPREHPOC ---
Outpatient Therapy Plan of Care This is a Multidisciplinary Plan of Care that may contain components documented by all disciplines (PT, OT, and ST.) PT Problem 1 PT Problem #1 Knowledge Deficit PT Goal 1 Goal [place] with HEP Target Visit 4 PT Problem 2 PT Problem #2 Impaired Range of Motion PT Goal 1 Goal Achieve terminal R knee extension for even gait Target Visit 8 PT Problem 3 PT Problem #3 Impaired Strength PT Goal 1 Goal Improve good hip flexion strength to 4+/5 to improve foot clearance with gait Target Visit 8 PT Goal 2 Goal Improve L knee extension to 4+/5 to improve stability with ADLs Target Visit 8 PT Problem 4 PT Problem #4 Impaired Balance PT Goal 1 Goal Improve Tinetti score by 7 points to reduce fall risk with ADLs Target Visit 8
--- NOTE | 2023-12-25 09:05 | PTOPEVAL1 ---
Assessment and note entered by Manny Quintanilla, PT Evaluation Information Assessment Status Evaluation Diagnosis History of Falls, Malaise Onset July 2023 Subjective Information Reports that she has been having left knee pain which was improved with a cortisone injection bout 1 month ago. She is also having pain on the heel of the left foot. This is the same side that she has her toe amputated on. She has a history of a right knee replacement. She has been using Aspecream for pain relief. She is taking Tylenol for pain at this time as well. Her most recent fall was about 3 months ago. This is the only one that she can recall. She uses a cane all the time for mobility. She will occasionally use a Rollator walker for longer distances. She s having a lot of trouble rising out of a chair. Reported Pain Level Pain Score 8: Self Report Assessment PT Clinical Summary Patient presents with lack of terminal left knee extension with notable weakness of good hips, left knee, and high fall risk based on findings of Tinetti examination. Patient will benefit form skilled therapy to address these deficits for improved gross mobility and strengthening to reduce fall risk and improve overall functional activity. Plan of Care Interventions Gait Training,Manual Therapy,Neuro Re-education, Therapeutic Activities,Therapeutic Exercise PT Services Indicated Yes Treatment Frequency and 2x/week for 8 visits Duration These treatments will address the objective and functional deficits as defined above. The patient will be advanced safely and appropriately in order for the patient to progress towards his/her prior level of function. Additional exercises will be introduced and as well as a comprehensive home exercise program upon discharge, if needed, ?to ensure carryover of functional gains achieved in the clinic. This treatment plan has been reviewed and agreement upon by the patient.
--- NOTE | 2024-01-16 16:22 | PCPTNOTE ---
Patient canceled due to getting a shot and feeling sore.
--- NOTE | 2024-01-24 09:58 | PCPTNOTE ---
Patient's daughter called to state patient is going to urgent care due to an issue in her foot.
--- NOTE | 2024-02-05 09:36 | PTOPPROG ---
Assessment and note entered by Travis Andersen, PT, DPT Evaluation Information Assessment Status Progress Diagnosis History of Falls, Malaise ICD-10 Condition Codes (PT) Pain in left knee M25.562,M25.572,Repeated falls R29.6,Difficulty Walking R26.2,R26.9,Weakness R53. 1 Onset July 2023 Subjective Information Pt states she is still having a lot of foot pain. She states she got an injection and her pain transferred to the other side of her foot. She states since starting therapy her knee pain has gotten better but her heel pain has gotten worse. She uses Voltaren and Tylenol religiously. Assessment PT Clinical Summary Patient has completed 6 visits of skilled therapy. She continues to have significant weakness of good hips, knee, and ankles. She continues to be a high fall risk based on the Tinetti. Progress has been limited d/t hip and knee pain, but these are progressing. Continuation of skilled therapy services are indicated to progress strength, minimize fall risk, and to improve functional mobility. Plan of Care Interventions Gait Training,Manual Therapy,Neuro Re-education, Therapeutic Activities,Therapeutic Exercise PT Services Indicated Yes Treatment Frequency and 2x/week for 8 visits Duration These treatments will address the objective and functional deficits as defined above. The patient will be advanced safely and appropriately in order for the patient to progress towards his/her prior level of function. Additional exercises will be introduced and as well as a comprehensive home exercise program upon discharge, if needed, ?to ensure carryover of functional gains achieved in the clinic. This treatment plan has been reviewed and agreement upon by the patient.
--- NOTE | 2024-02-28 07:57 | PCPTNOTE ---
Patient called & cancelled scheduled appointment this date due to having a scheduling conflict.
--- NOTE | 2024-03-18 09:41 | PTOPDC ---
Assessment and note entered by Travis Andersen, PT, DPT Evaluation Information Assessment Status Discharge Diagnosis History of Falls, Malaise ICD-10 Condition Codes (PT) Pain in left knee M25.562,M25.572,Repeated falls R29.6,Difficulty Walking R26.2,R26.9,Weakness R53. 1 Onset July 2023 Subjective Information Pt states her knee is doing well. She is able to go up and down stairs and go out to a restaurant without an increase in pain. She reports 0/10, with a 80% return to PLOF. She states walking without the cane is still difficult d/t balance. She uses the cane all the time. She states she went upstairs to shower. Pt declines any falls in the last 2 months. Reported Pain Level Pain Score 0,0: Self Report Assessment PT Clinical Summary Pt has completed 13 visits of skilled therapy to treat her knee pain and gait unsteadiness. Today she reports no knee pain in the last few weeks. She has improved her Tinetti, 2 min walk, and 5xSTS scores and in progressing in all measures towards minimizing her risk of falls. She continues to demonstrates decreased LE strength throughout. Pt reports she would like to continue her HEP on her own at this time. Pt will be d/c'ed per request.
== END 2024-03-18 11:29 | disposition home or self-care (01) ==
LOC: ANHGOSHPT 08:45
PROVIDERS: PCP Family Medicine; Visit Provider Family Medicine
DX: R53.81 Other malaise (principal); Z91.81 History of falling
CPT/HCPCS: 97110; 97112; 97140; 97161; 97530; 97750

== ENCOUNTER 2024-07-29 12:24 | Outpatient (CLI) | payer MEDICARE, MEDICAID, SELFPAY ==
[2024-07-29 13:02] LABS: Basophils Percent Auto 0.2 % (0.2-1.2); Hematocrit 31.8 % (37.0-47.0); Hemoglobin 9.7 g/dL (12.0-15.0); Immature Granulocyte Absolute 0.02 K/mm3 (0.00-0.031); Immature Granulocyte Percent A 0.2 % (0-0.5); Lymphocytes Absolute Auto 0.91 K/mm3 (0.9-3.2); Lymphocytes Percent Auto 9.1 % (18.3-44.2); Mean Corpuscular HGB Conc 30.5 g/dl (32-36); Mean Corpuscular Hemoglobin 31.9 pg (26-34); Mean Corpuscular Volume 104.6 fl (80-100); Mean Platelet Volume 11.7 fl (7.4-10.4); Monocytes Absolute Auto 1.1 K/mm3 (0.1-0.6); Monocytes Percent Auto 10.8 % (2.6-8.5); Neutrophils Percent Auto 79.7 % (45.5-73.1); Nucleated Red Blood Cells Perc 0.2 % (0.0-0.2); Platelet Count Result 118 k/mm3 (150-375); Red Blood Count 3.04 M/mm3 (4.2-5.4); Red Cell Distribution Width 16.2 % (11.5-14.5)
[2024-07-29 13:18] LABS: Alanine Aminotransferase 22 U/L (6-35); Alkaline Phosphatase 118 U/L (38-126); Aspartate Amino Transferase 35 U/L (14-36); Bilirubin,Total 1.1 mg/dL (0.2-1.3)
[2024-07-29 14:06] LABS: Hepatitis C Virus Antibody Negative (Negative)
[2024-07-31 17:48] LABS: Hepatitis C RNA, Quant PCR <15 NOT DETECTED IU/mL (NOT DETECTED)
== END 2024-07-29 12:25 | disposition home or self-care (01) ==
PROVIDERS: PCP Family Medicine; Visit Provider Nurse Practitioner Family
DX: B19.20 Unspecified viral hepatitis C without hepatic coma (principal)
CPT/HCPCS: 36415; 80076; 85025; 86803; 87522

== ENCOUNTER 2024-07-30 14:41 | Inpatient (IN) | payer MEDICARE, MEDICAID, SELFPAY ==
[2024-07-30] VITALS (11 sets, daily range): BP systolic 99–114; BP diastolic 45–68; PULSE 63–92; RESP 12–20; TEMP 37; O2SAT 95–100; BMI 23.7
--- NOTE | ~2024-07-30 | XR_ITS ---
EXAMINATION: XR chest 1V portable DATE: 08/09/2024 11:10 INDICATION: Weakness. TECHNIQUE: A single frontal view of the chest was obtained. COMPARISON: Chest single view 08/04/2024, chest CT 08/06/2024 FINDINGS: There is a diffuse interstitial pattern, consistent with mild pulmonary edema. There are ai rspace opacities at the lung bases. There is a small left pleural effusion. No pneumothorax. Cardiome greg is noted. There is a stent in right subclavian vein. There is an occlusion device at left atrial appendage. Surgical clips in the right upper quadrant are likely from cholecystectomy. IMPRESSION: 1. Mild pulmonary edema. 2. Airspace opacities at the lung bases, consistent with atelectasis versus pneumonia. 3. Small left pleural effusion. 4. Cardiomegaly. Reviewed, dictated and finalized at location A. UNT RESOLUTION EXPERT IMPRESSION: 1. Mild pulmonary edema. 2. Airspace opacities at the lung bases, consistent with atelectasis versus pne umonia. 3. Small left pleural effusion. 4. Cardiomegaly.
--- NOTE | ~2024-07-30 | CT_ITS ---
EXAMINATION:CT diagnostic chest wo con DATE: 08/11/2024 13:33 INDICATION: Hypoxia. TECHNIQUE: Computed tomography (CT) of the chest was performed without intravenous contrast. Automate d exposure control and iterative reconstruction technique were employed. The dose-length product (DLP ) was 116.29 mGy-cm. COMPARISON: Chest CT 08/06/2024 FINDINGS: There are small pleural effusions, right worse than left. The lungs demonstrate mild atelec tasis. There is a stent in right subclavian vein. Cardiomegaly is noted. There is a closure device at left ischial appendage. There are coronary artery calcifications. No pericardial effusion. There is ectasia of ascending aorta measuring 4.4 cm. A calcification the liver is consistent with old granulo matous disease. There is moderate atrophy of the kidneys. There is widespread sclerosis of the bones, consistent with renal osteodystrophy. IMPRESSION: 1. Small pleural effusions, right worse than left. 2. Ectasia of ascending aorta measuring 4.4 cm. Reviewed, dictated and finalized at location A. SANE
--- NOTE | ~2024-07-30 | CT_ITS ---
EXAMINATION: CT lumbar spine wo con DATE: 08/07/2024 12:32 INDICATION: Confusion and lethargy. TECHNIQUE: Computed tomography (CT) of the lumbar spine was performed without intravenous contrast. T he dose-length product was 425.36 mGy-cm. COMPARISON: None FINDINGS: Minimal upper lumbar dextrocurvature. 3 mm anterolisthesis L4 on L5. Diffuse osteopenia. Vertebral michelle dy heights are normal. No fracture. Mild disc height loss at T11-T12 and L4-L5. Small bilateral pleur al effusions. Moderate to severe bilateral renal atrophy with a few fluid attenuation bilateral renal cysts, the largest on the right measuring 1.9 cm.. The following disc levels are specifically discus sed: T11-T12: The disc does not extend beyond the endplate margin. There is moderate bilateral facet joint osteoarthritis. There is no neural foraminal stenosis. There is no central canal stenosis. T12-L1: The disc does not extend beyond the endplate margin. There is moderate bilateral facet joint osteoarthritis. There is no neural foraminal stenosis. There is no central canal stenosis. L1-L2: The disc does not extend beyond the endplate margin. There is moderate bilateral facet joint o steoarthritis. There is no neural foraminal stenosis. There is no central canal stenosis. L2-L3: Disc is bulging. There is moderate bilateral facet joint osteoarthritis. There is mild bilater al neural foraminal stenosis. There is mild central canal stenosis. L3-L4: Disc is bulging. There is moderate bilateral facet joint osteoarthritis. There is mild bilater al neural foraminal stenosis. There is mild central canal stenosis. L4-L5: Disc is bulging. There is hypertrophy of the ligamentum flavum. There is mild bilateral facet joint osteoarthritis. There is right and mild to moderate left neural foraminal stenosis. There is mo derate to severe central canal stenosis. L5-S1: Disc is bulging. There is left and severe right facet joint osteoarthritis. There is mild left and minimal right neural foraminal stenosis. There is mild central canal stenosis. IMPRESSION: 1. Mild lumbar spondylosis. Reviewed, dictated and finalized at location B. O LAB ANALYST IMPRESSION: 1. Mild lumbar spondylosis.
--- NOTE | ~2024-07-30 | CT_ITS ---
EXAMINATION: CTA chest PE protocol DATE: 08/06/2024 08:33 INDICATION: Pulmonary embolism with hypoxia TECHNIQUE: Computed tomography (CT) pulmonary angiogram of the chest was performed with 100 mL Omnipa que-350 intravenous contrast. Additional 3D reconstructions utilizing coronal maximum intensity proje ction (MIP) were performed. Automated exposure control and iterative reconstruction technique were em ployed. The dose-length product was 189.63 mGy-cm. COMPARISON: None FINDINGS: No pulmonary embolism. There is however moderate scattered respiratory motion which decreases sensiti vity, mildly in the segmental pulmonary arteries and more significantly in the smaller more periphera l subsegmental pulmonary arteries. Small bilateral pleural effusions. There is consolidation a right middle and lower lobes with associated fluid/mucus in the bronchi suspicious for pneumonia. Mild depe ndent compressive atelectasis in the left lower lobe. No pulmonary edema. Cardiomegaly. Atherosclerot ic coronary artery calcifications and aortic valve calcification. No pericardial effusion. Left atria l appendage occlusion device. Fusiform ascending thoracic aortic aneurysm measuring 4.3 cm in maximal diameter. This tapers to normal caliber of 2.8 cm at the isthmus. There is stenting of the right sub clavian vein. No pathologically enlarged thoracic lymphadenopathy. Likely benign rim calcified 7 mm n odule at the inferior left thyroid lobe. Hepatic calcification consistent with old granulomatous dise ase. Moderate to severe atrophy at the upper pole of the left kidney. Moderate to severe thoracic spo ndylosis with prominent diffuse osteopenia relatively sparing the endplates in the spine which could be seen in the setting of renal osteodystrophy. IMPRESSION: 1. No pulmonary embolism. Sensitivity decreased in the smaller subsegmental pulmonary arteries due to respiratory motion. 2. Right middle and lower lobe with fluid and mucus in the bronchi consistent with pneumonia. 3. Small bilateral pleural effusions. 4. 4.3 cm fusiform ascending thoracic aortic aneurysm. 5. Moderate to severe atrophy of the visualized left kidney with diffuse osteopenia with appearance s uggesting possible secondary renal osteodystrophy. Reviewed, dictated and finalized at location B. Y MIXER IMPRESSION: 1. No pulmonary embolism. Sensitivity decreased in the smaller subsegmental pul monary arteries due to respiratory motion. 2. Right middle and lower lobe with fluid and mucus in the bronchi consistent w ith pneumonia. 3. Small bilateral pleural effusions. 4. 4.3 cm fusiform ascending thoracic aortic aneurysm. 5. Moderate to severe atrophy of the visualized left kidney with diffuse osteop enia with appearance suggesting possible secondary renal osteodystrophy.
--- NOTE | ~2024-07-30 | CT_ITS ---
EXAMINATION: CT brain wo con DATE: 08/07/2024 12:28 INDICATION: Confusion and lethargy TECHNIQUE: Computed tomography (CT) of the head was performed without intravenous contrast. Sagittal and coronal reconstructions were performed. The mA was adjusted according to patient size. Iterative reconstruction technique was employed. The dose-length product was 681.00 mGy-cm. COMPARISON: head CT dated 02/19/2017 FINDINGS: No acute intracranial hemorrhage, acute infarction or abnormal extra axial fluid collection. There is mild scattered white matter hypoattenuation consistent with chronic small vessel ischemic disease. S ymmetric prominence of the sulci consistent with mild age-appropriate diffuse cerebral volume loss. T he ventricles are normal and symmetric. No mass/mass effect. There is moderate mucosal thickening par anasal sinuses along with dependent layering fluid/mucus in the right maxillary and bilateral sphenoi d sinuses. Changes of bilateral intraocular lens replacement. Small bilateral mastoid effusions. IMPRESSION: 1. Normal aging brain. No acute intracranial process. 2. Fluid/mucus in some of the paranasal sinuses consistent with acute sinusitis. Reviewed, dictated and finalized at location B. AL EVISCERATOR IMPRESSION: 1. Normal aging brain. No acute intracranial process. 2. Fluid/mucus in some of the paranasal sinuses consistent with acute sinusitis .
--- NOTE | ~2024-07-30 | MR_ITS ---
EXAMINATION: MR brain/brain stem wo con DATE: 08/08/2024 15:46 INDICATION: Altered mental status TECHNIQUE: Magnetic resonance imaging (MRI) of the brain and brainstem was performed without intraven ous contrast. Sequences included sagittal and axial T1-weighted SE, axial diffusion-weighted FS SE, a xial T2*-weighted GRE, axial T2-weighted FLAIR, and axial T2-weighted FSE. Apparent diffusion coeffic ient (ADC) maps were created. COMPARISON: None. FINDINGS: There are no areas of restricted diffusion to suggest acute infarction. No intracranial hemorrhage or abnormal intracranial mass lesion. There are scattered areas of nonspecific increased T2-weighted si gnal intensity in the cerebral white matter, predominantly involving the deep and periventricular whi te matter. There are no intraparenchymal signal abnormalities seen on the other pulse sequences. The ventricles are symmetric and normal in size. There are no abnormal extra-axial fluid collections. Clif w voids are seen in the cerebral arteries on the T2-weighted sequences consistent with their expected patency. Left vertebral artery is dominant. Mild mucosal thickening the paranasal sinuses with depen dently layering fluid/mucus in the right maxillary and bilateral sphenoid sinuses in one of the poste rior left ethmoid air cells. Changes of bilateral intraocular lens replacement. IMPRESSION: 1. No acute intracranial process. 2. Moderate scattered calcific white matter T2 hyperintensity which within normal limits for age and consistent with chronic small vessel ischemic disease. 3. Fluid/mucus in some of the paranasal sinuses consistent with acute sinusitis. Reviewed, dictated and finalized at location A. NAUTICAL ENGINEER IMPRESSION: 1. No acute intracranial process. 2. Moderate scattered calcific white matter T2 hyperintensity which within norm al limits for age and consistent with chronic small vessel ischemic disease. 3. Fluid/mucus in some of the paranasal sinuses consistent with acute sinusitis .
--- NOTE | ~2024-07-30 | XR_ITS ---
Portable chest x-ray Comparison: 07/30/2024 Clinical History: Hypoxia Findings: Probable minimal right pleural effusion. There is hazy bibasilar and perihilar airspace di sease, right worse than left. Cardiomediastinal silhouette is stable. Bones and soft tissues are unr emarkable. Impression: Mild to moderate pulmonary edema pattern, right worse than left, versus possibly pneumonia. Correlate clinically. Stable cardiomegaly. Reviewed, dictated and finalized at [facility]. GY BROKER Impression: Mild to moderate pulmonary edema pattern, right worse than left, versus possibl y pneumonia. Correlate clinically. Stable cardiomegaly.
--- NOTE | ~2024-07-30 | XR_ITS ---
EXAMINATION: XR chest 2V DATE: 07/30/2024 15:10 INDICATION: Shortness of breath. TECHNIQUE: Frontal and lateral views of the chest were obtained. COMPARISON: Chest single view 06/06/2023, CT abdomen and pelvis 02/20/2020 FINDINGS: There is a diffuse interstitial pattern, consistent with mild pulmonary edema. There is mil d atelectasis in right lower lung zone. No pleural effusion or pneumothorax or cardiomegaly is noted. There is a closure device at left atrial appendage. There are vascular stents in the upper limits an d right upper chest. IMPRESSION: 1. Mild pulmonary edema. 2. Cardiomegaly. Reviewed, dictated and finalized at location B. NG AND REIMBURSEMENT SPECIALIST
--- NOTE | ~2024-07-30 | XR_ITS ---
Portable chest x-ray Comparison: 08/09/2024 Clinical History: Hypoxia Findings: There is mild bibasilar pulmonary haziness. Possible minimal right pleural effusion. Card iomediastinal silhouette is stable. Bones and soft tissues are unremarkable. Impression: Probable mild bibasilar pulmonary edema with minimal right pleural effusion. Stable cardiomegaly. Possible underlying COPD. Reviewed, dictated and finalized at location . SIGNALMAN Impression: Probable mild bibasilar pulmonary edema with minimal right pleural effusion. Stable cardiomegaly. Possible underlying COPD.
--- NOTE | 2024-07-30 14:42 | ECG_ITS ---
Test Date: 2024-07-30 14:49:10 Measurements Intervals [place] Rate: 72 P: 0 [place]: 0 QRS: 99 QRSD: 98 T: 48 QT: 372 QTc: 408 Interpretive Statements ATRIAL FIBRILLATION BORDERLINE RIGHT AXIS DEVIATION [QRS AXIS > 90] INCOMPLETE RIGHT BUNDLE BRANCH BLOCK [90+ ms QRS DURATION, TERMINAL R IN V1/V2, 40+ ms S IN I/aVL/V4/V5/V6] NONSPECIFIC ST & T-WAVE ABNORMALITY ABNORMAL RHYTHM ECG No previous ECG available for comparison Electronically Signed On 07-31-2024 13:54:55 REVIEW RN by Barbara Gutierrez
--- NOTE | 2024-07-30 15:10 | PC.NURSE ---
Report given to ABENA French
[2024-07-30 15:47] LABS: Basophils Percent Auto 0.5 % (0.2-1.2); Eosinophils Percent Auto 0.5 % (0-4.4); Hemoglobin 9.7 g/dL (12.0-15.0); Immature Granulocyte Absolute 0.03 K/mm3 (0.00-0.031); Immature Granulocyte Percent A 0.3 % (0-0.5); Lymphocytes Absolute Auto 0.79 K/mm3 (0.9-3.2); Lymphocytes Percent Auto 9.2 % (18.3-44.2); Mean Corpuscular HGB Conc 31.3 g/dl (32-36); Mean Corpuscular Hemoglobin 32.9 pg (26-34); Mean Corpuscular Volume 105.1 fl (80-100); Mean Platelet Volume 12.5 fl (7.4-10.4); Monocytes Absolute Auto 0.9 K/mm3 (0.1-0.6); Monocytes Percent Auto 10.9 % (2.6-8.5); Neutrophils Absolute Auto 6.8 K/mm3 (1.3-6.7); Neutrophils Percent Auto 78.6 % (45.5-73.1); Nucleated Red Blood Cells Perc 0.5 % (0.0-0.2); Platelet Count Result 112 k/mm3 (150-375); Red Blood Count 2.95 M/mm3 (4.2-5.4); Red Cell Distribution Width 16.4 % (11.5-14.5); White Blood Count 8.6 K/mm3 (4.5-10.0)
--- NOTE | 2024-07-30 15:54 | ED_ITS ---
HPI - General Adult General Chief complaint: Shortness of Breath/Dyspnea Stated complaint: SOB Time Seen by Provider: 07/30/24 15:29 History of Present Illness HPI narrative: 79-year-old female present to the emergency department for evaluation for worsening shortness of breath. Patient is a diabetic with end-stage renal disease on dialysis on Sunday and Sunday. Patient began developing shortness of breath on Sunday. Patient did go to dialysis on Sunday and today. At dialysis patient was found to be hypoxic. Patient does feel fatigued and was having shortness of breath. Patient does feel improved on oxygen. Patient denies any chest pain, patient denies any associated abdominal pain nausea or vomiting. Patient is present with her direct care supervisor. Related Data Home Medications ?Medication ?Instructions ?Recorded ?Confirmed ?Last Taken ?Type cyanocobalamin (vitamin B-12) 500 500 mcg PO DAILY 06/12/19 07/29/24 06/05/23 History mcg tablet acetaminophen 500 mg tablet 1,000 mg PO Q6H PRN Pain 02/20/20 07/29/24 06/05/23 History (Acetaminophen Extra Strength) sevelamer HCl 800 mg tablet 800 mg PO TID 03/29/20 07/29/24 06/05/23 History atorvastatin 40 mg tablet 40 mg PO DAILY 10/25/21 07/29/24 06/04/23 History calcium carbonate (Tums) 400 mg PO QHS 10/25/21 07/29/24 06/05/23 History vitamin B complex and vitamin C 1 cap PO DAILY 10/25/21 07/29/24 06/05/23 History no.20-folic acid 1 mg capsule (Renal Caps) carvedilol 12.5 mg tablet (Coreg) 6.25 mg PO DAILY 05/11/22 07/29/24 06/04/23 History liraglutide 0.6 mg/0.1 mL (18 mg/3 1.8 mg subcut HS 06/06/23 07/29/24 06/05/23 History mL) subcutaneous pen injector (Victoza 2-Agustín) clotrimazole 1 % topical cream 1 applic topical Q12H 09/27/23 07/29/24 Unknown History (Antifungal (clotrimazole)) lidocaine-prilocaine 2.5 %-2.5 % 1 applic topical ONCE 09/27/23 07/29/24 Unknown History topical cream Allergies Allergy/AdvReac Type Severity Reaction Status Date / Time cephalexin Allergy Mild Rash Verified 07/30/24 14:57 enalapril Allergy Unknown cough Verified 07/30/24 14:57 pioglitazone Allergy Unknown Unknown Verified 07/30/24 14:57 tramadol Allergy Unknown hallucinati Verified 07/30/24 14:57 ons gabapentin Allergy Hallucinati Verified 07/30/24 14:57 ng cefazolin AdvReac Mild nausea/dizz Verified 07/30/24 14:57 iness Review of Systems 2 Review of Systems: All systems reviewed & are unremarkable except as noted in HPI and below PMFSH Past Medical History Medical History (Updated 07/30/24 @ 18:21 by Kia Mtz APRN) GERD (gastroesophageal reflux disease) Colon polyps History of gastric ulcer IBS (irritable bowel syndrome) Hepatitis C Tubular adenoma of colon Peripheral arterial disease History mid foot amputation. Spinal stenosis at L4-L5 level High-grade central canal stenosis noted on MRI February 2017 Pulmonary hypertension Echocardiogram August 2019: EF 65-70 %, indeterminate left ventricular diastolic function, mild biatrial enlargement, mild mitral valve regurgitation, moderate tricuspid regurgitation, mild pulmonary hypertension with RVSP of 39 Hiatal hernia Thoracic ascending aortic aneurysm 4.[address] scan from August 2019 Anemia of chronic disease Megaloblastic anemia Paroxysmal atrial fibrillation Type 2 diabetes mellitus Hemoglobin A1c was 6.6 in July 2019. Hypertension Osteoporosis Hyperlipidemia AV fistula Left upper extremity End stage renal disease on dialysis Dialysis days are Sunday, Sunday, and Sunday. She is on the transplant list at [facility]. Osteoarthritis of both knees Staphylococcal septicemia (~2013) Closed fracture of lateral portion of right tibial plateau (~2014) Surgical History Surgical History Amputated toe of left foot History of bilateral cataract extraction Amputation at midfoot 5th digit right footAnd the great toe on the left History of arthroplasty of right ankle Presence of Watchman left atrial appendage closure device History of arthroscopy (~12/07/12) wrist History of colonoscopy (~12/02/15) History of knee replacement (~2015) right Family History Family History Father Hypertension Heart disease Mother Diabetes mellitus Hypertension Tobacco dependence Lung cancer Sibling Heart disease Social History Social History Social History: The patient is and lives in [place]. She is originally from [place]. 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 She has 2 daughters who live in [place]. She has 1 son who lives in [facility] . She designates her daughters as her surrogate decision makers. She is a lifelong nonsmoker. No alcohol or drug abuse. Primary care physician: Dr. David Coppola Code status: Full code Smoking status: Never smoker Second hand tobacco smoke exposure: No Alcohol intake: former Substance use: never Substance use type: does not use Lack of Transportation: No Lack of Food: Never True Current Housing: I Have Housing Concerned About Future Housing: No Difficulty Paying Gas/Electric Bills: No Difficulty Paying for Meds: No Currently Unemployed: No Education: High School Diploma/GED Difficulty w/ Childcare or Family Care: No Gender identity (if verbalized by the patient): Female Spiritual care concerns: No Agree to blood products: Yes Exam 2 Narrative: APPEARANCE: Ill-appearing HEAD: normocephalic, atraumatic. EYES: PERRLA/EOMI, conjunctivae clear. NOSE: Normal no drainage EARS:TMS clear with good light reflex. THROAT: Pharynx clear, no exudate. NECK: Supple. No adenopathy, no masses. RESPIRATORY: Airway patent, respirations nonlabored. Clear to auscultation bilaterally, no rales, rhonchi, wheezing. CARDIOVASCULAR: Regular rate and rhythm without murmurs rubs or gallops. ABDOMINAL: Soft, nontender, nondistended, normal bowel sounds MUSCULOSKELETAL: Moves all extremities. Strength/ROM intact, No edema, No calf tenderness. NEURO: Alert. Cranial nerves II through XII intact. Grossly intact SKIN: Warm, dry. Normal Color Course Vital Signs Vital signs: Vital Signs Temperature 98.6 F 07/30/24 14:35 Pulse Rate 92 07/30/24 14:35 Respiratory Rate 20 07/30/24 14:35 Blood Pressure 99/45 L 07/30/24 14:35 Pulse Oximetry 100 07/30/24 14:35 Oxygen Delivery Nasal Cannula 07/30/24 14:35 Oxygen Flow Rate 2 07/30/24 14:35 Temperature 98.6 F 07/30/24 14:35 Pulse Rate 74 07/30/24 18:42 Respiratory Rate 20 07/30/24 18:42 Blood Pressure 110/52 L 07/30/24 18:42 Pulse Oximetry 98 07/30/24 18:42 Oxygen Delivery Nasal Cannula 07/30/24 15:46 Oxygen Flow Rate 1 07/30/24 15:46 Medical Decision Making MDM Narrative Medical decision making narrative: 79-year-old female presents emergency department for evaluation for increased generalized weakness and shortness of breath. Patient did test positive for RSV and patient does have an O2 requirement. Patient was hypoxic at dialysis and does still require oxygen to the emergency department. Patient reports he does feel too fatigued to care for herself home. Patient does do dialysis on Sunday and Sunday patient has not missed any dialysis including today. Patient's labs she is afebrile with no leukocytosis and hemoglobin of 9.7 which is similar to her baseline. Platelets are 112 which is similar to values from just a few days ago. Patient does have some subtle electrolyte abnormalities with a potassium of 2.9 and a calcium of 7.5. The hypokalemia was discussed with Nephrology they felt this may be artificially low due to the recent dialysis. No adjustment to the electrolyte abnormalities were made. Patient did test positive for RSV. Chest x-ray does show mild pulmonary edema. Nephrology was consulted due to the patient being admitted. Case was discussed with hospitalist and patient was accepted to [facility]. Patient was stable at time of transfer to the floor. Differential Diagnosis Differential Diagnosis: COVID, RSV, pneumonia, influenza, pneumothorax, pneumonia, dehydration Vital Signs Vital Signs: Vital Signs Temperature 98.6 F 07/30/24 14:35 Pulse Rate 92 07/30/24 14:35 Respiratory Rate 20 07/30/24 14:35 Blood Pressure 99/45 L 07/30/24 14:35 Pulse Oximetry 100 07/30/24 14:35 Oxygen Delivery Nasal Cannula 07/30/24 14:35 Oxygen Flow Rate 2 07/30/24 14:35 Temperature 98.6 F 07/30/24 14:35 Pulse Rate 74 07/30/24 18:42 Respiratory Rate 20 07/30/24 18:42 Blood Pressure 110/52 L 07/30/24 18:42 Pulse Oximetry 98 07/30/24 18:42 Oxygen Delivery Nasal Cannula 07/30/24 15:46 Oxygen Flow Rate 1 07/30/24 15:46 Lab Data Lab results reviewed: Yes I reviewed the patient's lab results. 07/30/24 15:37 07/30/24 15:37 Labs: Lab Results 07/30/24 07/30/24 Range/Units 15:37 16:07 WBC 8.6 (4.5-10.0) K/mm3 RBC 2.95 L (4.2-5.4) M/mm3 Hgb 9.7 L (12.0-15.0) g/dL Hct 31.0 L (37.0-47.0) % MCV 105.1 H (80-100) fl MCH 32.9 (26-34) pg MCHC 31.3 L (32-36) g/dl RDW 16.4 H (11.5-14.5) % Plt Count 112 L (150-375) k/mm3 MPV 12.5 H (7.4-10.4) fl Immature Gran % (Auto) 0.3 (0-0.5) % Neut % (Auto) 78.6 H (45.5-73.1) % Lymph % (Auto) 9.2 L (18.3-44.2) % [place] % (Auto) 10.9 H (2.6-8.5) % Eos % (Auto) 0.5 (0-4.4) % Baso % (Auto) 0.5 (0.2-1.2) % Lymph # (Auto) 0.79 L (0.9-3.2) K/mm3 [place] # (Auto) 0.9 H (0.1-0.6) K/mm3 Eos # (Auto) 0.0 (0-0.3) K/mm3 Baso # (Auto) 0.0 (0.0-0.1) K/mm3 Abs Immat Gran (auto) 0.03 (0.00-0.031) K/mm3 Absolute Neuts (auto) 6.8 H (1.3-6.7) K/mm3 Absolute Nucleated RBC 0.040 H (0.0-0.012) K/mm3 Nucleated RBC % 0.5 H (0.0-0.2) % Platelet Estimate Slightly decreased (Adequate) Hypochromasia 1+ Macrocytosis 1+ (NORMAL) Schistocytes None seen Sodium 135 L (137-145) mmol/L Potassium 2.9 L (3.4-5.0) mmol/L Chloride 90 L (98-107) mmol/L Carbon Dioxide 36 H (22-30) mmol/L Anion Gap 9 (4-12) mmol/L BUN 21 H (7-17) mg/dL Creatinine 2.01 H (0.7-1.0) mg/dL Estim Creat Clear Calc Not Reportable Estimated GFR 24 L (59 - ) Glucose 183 H (65-110) mg/dL Calcium 7.5 L (8.4-10.2) mg/dL Total Bilirubin 1.0 (0.2-1.3) mg/dL AST 32 (14-36) U/L ALT 22 (6-35) U/L Alkaline Phosphatase 115 (38-126) U/L Total Protein 6.0 L (6.3-8.2) g/dL Albumin 3.8 (3.5-5.1) g/dL Influenza A (RT-PCR) Negative (Negative) Influenza B (RT-PCR) Negative (Negative) RSV (RT-PCR) Positive A (Negative) SARS-CoV-2 RNA (RT-PCR) Negative (Negative) Imaging Data Radiologist's impression: Impressions Chest X-Ray 07/30/24 15:11 IMPRESSION: 1. Mild pulmonary edema. 2. Cardiomegaly. Discharge Plan Discharge Clinical Impression: Hypoxia RSV infection Qualifiers: RSV infection type: unspecified Qualified Code(s): B33.8 - Other specified viral diseases Patient Disposition: Still a Patient Condition: Stable Patient Language: Setswana Prescriptions: No Action atorvastatin 40 mg tablet 40 mg PO DAILY calcium carbonate [Tums] 200 mg calcium (500 mg) tablet,chewable 400 mg PO QHS Renal Caps 1 mg capsule 1 cap PO DAILY dicyclomine 10 mg capsule See Rx Instructions .ROUTE .COMPLEX Qty: 60 5RF Dose Instruction: TAKE 1 CAPSULE BY MOUTH TWICE DAILY NEEDED FOR ABDOMINAL PAIN Rx Instructions: TAKE 1 CAPSULE BY MOUTH TWICE DAILY NEEDED FOR ABDOMINAL PAIN sevelamer HCl 800 mg tablet 800 mg PO TID Rx Instructions: must administer with a meal/food carvedilol [Coreg] 12.5 mg tablet 6.25 mg PO DAILY Rx Instructions: must administer with a meal/food Prolia 60 mg/mL syringe 60 mg subcut [id number] Qty: 1 1RF Patient Comments: Due this month (May). Gets from primary care Doctor. can have caregiver bring in clotrimazole [Antifungal (clotrimazole)] 1 % cream 1 applic topical Q12H lidocaine-prilocaine 2.5-2.5 % cream 1 applic topical ONCE trazodone 50 mg tablet 100 mg PO QHS Qty: 180 1RF ergocalciferol (vitamin D2) 1,250 mcg (50,000 unit) capsule See Rx Instructions .ROUTE .COMPLEX Qty: 13 2RF Dose Instruction: Take 1 capsule by mouth once a week Rx Instructions: Take 1 capsule by mouth once a week Victoza 2-Agustín 0.6 mg/0.1 mL (18 mg/3 mL) pen injector 1.8 mg subcut HS Rx Instructions: INJECT 1.8 MG (0.3 ML) SUB-Q AT BEDTIME. For diabetes cyanocobalamin (vitamin B-12) 500 mcg Tablet 500 mcg PO DAILY acetaminophen [Acetaminophen Extra Strength] 500 mg Tablet 1,000 mg PO Q6H PRN (Reason: Pain) (DME) blood sugar diagnostic Strip See Rx Instructions .ROUTE .MEDSUPPLY Qty: 500 3RF Rx Instructions: As directed test 6 x day (DME) hortencia strickland See Rx Instructions .Route .MEDSUPPLY Qty: 1 0RF Rx Instructions: As directed (DME) pen needle, diabetic 32 gauge x 1/5 needle See Rx Instructions .ROUTE .MEDSUPPLY Qty: 100 3RF Rx Instructions: As directed (DME) blood sugar diagnostic Strip See Rx Instructions .Route Qty: 500 2RF Rx Instructions: One touch ultra blue test strips. insulin degludec [Tresiba FlexTouch U-100] 100 unit/mL (3 mL) insulin pen 10 unit subcut HS Qty: 15 3RF (DME) Assited gait device See Rx Instructions .Route .MEDSUPPLY Qty: 1 0RF Rx Instructions: Fer Strickland Januvia 100 mg tablet 100 mg PO DAILY Qty: 90 1RF pantoprazole 40 mg tablet,delayed release (DR/EC) 40 mg PO Q12HR Qty: 60 5RF amoxicillin 500 mg capsule 500 mg PO Q8H Qty: 21 1RF Rx Instructions: aware of cephalexin allergy Follow-up/Referrals: David Coppola MD [Primary Care Provider] -
[2024-07-30 15:57] LABS: Alanine Aminotransferase 22 U/L (6-35); Albumin Level 3.8 g/dL (3.5-5.1); Alkaline Phosphatase 115 U/L (38-126); Anion Gap 9 mmol/L (4-12); Aspartate Amino Transferase 32 U/L (14-36); Blood Urea Nitrogen 21 mg/dL (7-17); Calcium 7.5 mg/dL (8.4-10.2); Carbon Dioxide 36 mmol/L (22-30); Chloride 90 mmol/L (98-107); Estimated Glomerular Filt Rate 24; Glucose 183 mg/dL (65-110); Potassium 2.9 mmol/L (3.4-5.0); Sodium 135 mmol/L (137-145)
[2024-07-30 16:15] LABS: Hypochromasia 1+; Macrocytosis 1+ (NORMAL); Platelet Estimate Slightly Decreased (Adequate); Schistocytes None Seen
[2024-07-30 16:48] LABS: Influenza A QL RT-PCR Negative (Negative); Influenza B QL RT-PCR Negative (Negative); RSV RNA, RT-PCR Positive (Negative); SARS-CoV-2 RNA PCR Negative (Negative)
--- NOTE | 2024-07-30 17:58 | P.HP_ITS ---
H&P: HPI History of Present Illness Date/Time: 07/30/24 17:58 Chief Complaint: Shortness of Breath, Cough Narrative: 79-year-old female presents here with shortness of breath and cough with PMH of ESRD on HD (M/W/F), anemia, IBS, pulmonary hypertension, paroxysmal AFib, diabetes, hypertension, and hyperlipidemia. The patient presents here from [facility] dialysis via EMS for further evaluation of general malaise, shortness of breath, and cough. She reports that she initially began feeling unwell for the past week. She reports her cough has been productive yielding yellow. Shortness of breath is also accompanied by congestion, rhinorrhea, poor appetite, fatigue, chills, body aches, and generalized weakness. She denies chest pain, diarrhea, fevers. During her treatment today at [facility], she began feeling weak and having general malaise which prompted them to call EMS. She completed her treatment today. Did not have treatment on Sunday due to the holiday. Upon EMS arrival, it was noted that the patient's O2 saturation was in the 80s on room air. She was placed on 2L NC with improvement to 98%. She does not have a supplemental O2 requirement at baseline. No known sick contacts. Initial VS at presentation: 98.6? F, HR 92, RR 20, 99/45, and 100% on 2L NC. ED workup showed: No leukocytosis, hemoglobin 9.7 (previously 8.7 on 06/09/2023), potassium 2.9, creatinine 2.01 and GFR 24, calcium 7.5, and patient tested positive for RSV (negative for COVID and influenza). CXR showed mild pulmonary edema and cardiomegaly. EKG showed AFib, rate 72, borderline right axis deviation, incomplete RBBB, nonspecific ST and T-wave abnormality (awaiting formal read). Review of Systems Review of Systems: All systems reviewed & are unremarkable except as noted in HPI and below [facility] Past Medical History Medical History (Updated 07/30/24 @ 21:39 by Kia Mtz APRN) GERD (gastroesophageal reflux disease) Colon polyps History of gastric ulcer IBS (irritable bowel syndrome) Tubular adenoma of colon Peripheral arterial disease History mid foot amputation. Spinal stenosis at L4-L5 level High-grade central canal stenosis noted on MRI February 2017 Pulmonary hypertension Echocardiogram August 2019: EF 65-70 %, indeterminate left ventricular diastolic function, mild biatrial enlargement, mild mitral valve regurgitation, moderate tricuspid regurgitation, mild pulmonary hypertension with RVSP of 39 Hiatal hernia Thoracic ascending aortic aneurysm 4.[address] scan from August 2019 Anemia of chronic disease Megaloblastic anemia Paroxysmal atrial fibrillation Type 2 diabetes mellitus Hemoglobin A1c was 6.6 in July 2019. Hypertension Osteoporosis Hyperlipidemia AV fistula Left upper extremity End stage renal disease on dialysis Dialysis days are Sunday, Sunday, and Sunday. She is on the transplant list at [facility]. Osteoarthritis of both knees Staphylococcal septicemia (~2013) Closed fracture of lateral portion of right tibial plateau (~2014) Surgical History Surgical History Amputated toe of left foot History of bilateral cataract extraction Amputation at midfoot 5th digit right footAnd the great toe on the left History of arthroplasty of right ankle Presence of Watchman left atrial appendage closure device History of arthroscopy (~12/07/12) wrist History of colonoscopy (~12/02/15) History of knee replacement (~2015) right Family History Family History Father Hypertension Heart disease Mother Diabetes mellitus Hypertension Tobacco dependence Lung cancer Sibling Heart disease Social History Social History Social History: The patient is and lives in [place]. She is originally from [place]. 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 She has 2 daughters who live in [place]. She has 1 son who lives in [facility] [place] . She designates her daughters as her surrogate decision makers. She is a lifelong nonsmoker. No alcohol or drug abuse. Primary care physician: Dr. David Coppola Code status: Full code Smoking status: Never smoker Second hand tobacco smoke exposure: No Alcohol intake: former Substance use: never Substance use type: does not use Do You Feel Safe in your Home?: Yes Lack of Transportation: No Lack of Food: Never True Current Housing: I Do Not Have Housing Concerned About Future Housing: No Difficulty Paying Gas/Electric Bills: No Difficulty Paying for Meds: No Currently Unemployed: No Education: High School Diploma/GED Difficulty w/ Childcare or Family Care: No Gender identity (if verbalized by the patient): Female Spiritual care concerns: No Agree to blood products: Yes Meds Home Medications and Allergies Home Medications ?Medication ?Instructions ?Recorded ?Confirmed ?Type cyanocobalamin (vitamin B-12) 500 500 mcg PO DAILY 06/12/19 07/30/24 History mcg tablet acetaminophen 500 mg tablet See Rx Instructions PO Q4H PRN Pain 02/20/20 07/30/24 History (Acetaminophen Extra Strength) sevelamer HCl 800 mg tablet 800 mg PO TID 03/29/20 07/30/24 History blood sugar diagnostic #500 ea 07/18/21 07/30/24 Rx atorvastatin 40 mg tablet 40 mg PO DAILY 10/25/21 07/30/24 History calcium carbonate (Tums) 1,500 mg PO TID 10/25/21 07/30/24 History vitamin B complex and vitamin C 1 cap PO DAILY 10/25/21 07/30/24 History no.20-folic acid 1 mg capsule (Renal Caps) carvedilol 12.5 mg tablet (Coreg) 3.125 mg PO BID 05/11/22 07/30/24 History foldiing walker #1 ea 01/11/23 07/30/24 Rx blood sugar diagnostic #500 ea 05/14/23 07/30/24 Rx pen needle, diabetic 32 gauge x #100 ea 05/14/23 07/30/24 Rx 1/5 denosumab 60 mg/mL subcutaneous 60 mg subcut [id number] #1 mL 06/01/23 07/30/24 Rx syringe (Prolia) liraglutide 0.6 mg/0.1 mL (18 mg/3 1.2 mg subcut HS 06/06/23 07/30/24 History mL) subcutaneous pen injector (Victoza 2-Agustín) insulin degludec 100 unit/mL (3 10 unit (0.1 mL) subcut HS #15 mL 06/25/23 07/30/24 Rx mL) subcutaneous pen (Tresiba FlexTouch U-100 insulin) Assited gait device #1 ea 08/23/23 07/30/24 Rx clotrimazole 1 % topical cream 1 applic topical Q12H 09/27/23 07/30/24 History (Antifungal (clotrimazole)) lidocaine-prilocaine 2.5 %-2.5 % 1 applic topical ONCE 09/27/23 07/30/24 History topical cream dicyclomine 10 mg capsule See Rx Instructions .Route 02/12/24 07/30/24 Rx .COMPLEX #60 caps sitagliptin phosphate 100 mg 100 mg PO DAILY #90 tabs 02/15/24 07/30/24 Rx tablet (Januvia) pantoprazole 40 mg tablet,delayed 40 mg PO Q12HR #60 tabs 06/16/24 07/30/24 Rx release ergocalciferol (vitamin D2) 1,250 See Rx Instructions .Route 06/26/24 07/30/24 Rx mcg (50,000 unit) capsule .COMPLEX #13 caps trazodone 50 mg tablet 100 mg (2 x 50 mg) PO QHS #180 tabs 06/26/24 07/30/24 Rx amoxicillin 500 mg capsule 500 mg PO Q8H #21 caps 07/28/24 07/30/24 Rx Allergies Allergy/AdvReac Type Severity Reaction Status Date / Time cephalexin Allergy Mild Rash Verified 07/30/24 14:57 enalapril Allergy Unknown cough Verified 07/30/24 14:57 pioglitazone Allergy Unknown Unknown Verified 07/30/24 14:57 tramadol Allergy Unknown hallucinati Verified 07/30/24 14:57 ons gabapentin Allergy Hallucinati Verified 07/30/24 14:57 ng cefazolin AdvReac Mild nausea/dizz Verified 07/30/24 14:57 iness Vital Signs Vital Signs - 24 hr 07/30/24 14:35 07/30/24 15:38 07/30/24 15:43 Temperature 98.6 F Pulse Rate 92 81 Respiratory Rate 20 Blood Pressure 99/45 L Pulse Oximetry 100 100 Oxygen Delivery Nasal Cannula Nasal Cannula Oxygen Flow Rate 2 1 07/30/24 15:46 07/30/24 17:39 Temperature Pulse Rate 75 Respiratory Rate 20 Blood Pressure 111/47 L Pulse Oximetry 100 100 Oxygen Delivery Nasal Cannula Oxygen Flow Rate 1 Exam Const: General: comfortable and no acute distress Other: Elderly, female, ill-appearing HENMT: Face/Nose/Sinus: Normal nares present Mouth: Yes moist mucous membranes Eyes: General: appearance normal, both eyes and all related structures Sclera: sclerae normal Pupils: Equal, round and reactive pupils present EOM: EOMs intact bilaterally Resp: Other: Bibasilar crackles, + tachypnea without increased work of breathing Cardio: Rate: regular rate Rhythm: regular rhythm Other: S1-S2 present without murmur, rub, ectopy GI: Other: Abdomen soft, nondistended, nontender. Skin: General skin exam: normal color and no rashes or lesions noted Wounds: no wounds Neuro: Speech: normal speech Motor exam (neuro): 5/5 motor strength present throughout Sensory Exam: normal sensation Other: S1-S2 present without murmur, rub, ectopy Extrem: General: normal exam except as noted Other: +thrill and bruit to RUE fistula. old fistula to LUE. Psych: Mental Status: mental status grossly normal Affect: normal affect Other: Good insight and judgment, pleasant H&P: Results Labs Labs: Short CBC 07/30/24 Range/Units 15:37 WBC 8.6 (4.5-10.0) K/mm3 Hgb 9.7 L (12.0-15.0) g/dL Hct 31.0 L (37.0-47.0) % Plt Count 112 L (150-375) k/mm3 BMP 07/30/24 15:37 Sodium 135 L Potassium 2.9 L Chloride 90 L Carbon Dioxide 36 H BUN 21 H Creatinine 2.01 H Glucose 183 H Calcium 7.5 L Liver Function 07/30/24 Range/Units 15:37 Total Bilirubin 1.0 (0.2-1.3) mg/dL AST 32 (14-36) U/L ALT 22 (6-35) U/L Alkaline Phosphatase 115 (38-126) U/L Albumin 3.8 (3.5-5.1) g/dL Assessment and Plan Assessment and plan (1) Hypoxia: Code(s): R09.02 - Hypoxemia Status: Acute Assessment and Plan: - initial O2 saturation per EMS in the 80s on room air, currently on 1L NC. Wean as tolerated and maintain O2 saturation greater than 92%. - CXR: 1. Mild pulmonary edema. 2. Cardiomegaly. - RSV+, negative for COVID/Flu - once weakness is improved, will need ambulatory O2 saturation (2) RSV infection: Qualifiers: RSV infection type: unspecified Qualified Code(s): B33.8 - Other specified viral diseases Code(s): B33.8 - Other specified viral diseases Status: Acute Assessment and Plan: - tested positive for RSV on 07/30, onset of symptoms on 07/28 - CXR negative for pneumonia - supportive care Mucinex ebony Tessalon Perles p.r.n. DuoNeb p.r.n. Tylenol p.r.n. Lozenge p.r.n. - generalized weakness secondary to current infection, will add PT/OT for prevention of deconditioning (3) ESRD (end stage renal disease) on dialysis: Code(s): N18.6 - End stage renal disease; Z99.2 - Dependence on renal dialysis Status: Chronic Assessment and Plan: - creatinine a 2.01 and GFR 24 - nephrology consulted for inpatient dialysis. Discussed case with ED provider, noted potassium of 2.9 however he feels this is reactive to dialysis treatment this morning. Will reassess tomorrow morning. Hold on repletion. 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 use: without dedicated intermodal truck driver use Qualified Code(s): E11.9 - Type 2 diabetes mellitus without complications Code(s): E11.9 - Type 2 diabetes mellitus without complications Status: Chronic Assessment and Plan: - hypoglycemia protocol - POC blood glucose ACHS - home medication: Tresiba 10 units HS, Victoza 1.2 mg HS, Januvia 100 mg daily - correct regimen ordered - low dose TIDWM, based off TDD - A1C 6.5% 12/2023, update (5) Atrial fibrillation: Qualifiers: Atrial fibrillation type: unspecified Qualified Code(s): I48.91 - Unspecified atrial fibrillation Code(s): I48.91 - Unspecified atrial fibrillation Status: Chronic Assessment and Plan: - paroxysmal - EKG, initial: AFib, rate 72, borderline right axis deviation, incomplete RBBB, nonspecific ST and T-wave abnormality (awaiting formal read). - continue home medications: (6) Anemia: Qualifiers: Anemia type: unspecified type Qualified Code(s): D64.9 - Anemia, unspecified Code(s): D64.9 - Anemia, unspecified Status: Chronic Assessment and Plan: - hemoglobin 9.7, previously 8.7 on 06/2023 - monitor (7) Hypertension: Qualifiers: Hypertension type: unspecified Qualified Code(s): I10 - Essential (primary) hypertension Code(s): I10 - Essential (primary) hypertension Status: Chronic Assessment and Plan: - chronic, currently 99/47 - hold home medications, BP currently soft. Resume when appropriate. - monitor Plan Patient fatigued/mildly somnolent on exam but able to maintain wakefulness. Will hold trazodone, resume when appropriate. Diet: Renal GI Prophylaxis: Not currently indicated DVT Prophylaxis: Lines: Peripheral Code Status: Full code Quality VTE Prophylaxis VTE prophylaxis: mechanical ordered Hospitalist MIPS Advance Care Plan I have confirmed that the patient's Advanced Care Plan is present, code status is documented, or surrogate decision maker is listed in patient medical record.: Yes Medication Reconciliation I have utilized all available resources to obtain, update and review the patients current medications (includes all prescriptions, OTC, herbals, cannabis, and nutritional supplements).: Yes
--- NOTE | 2024-07-30 20:36 | ADMGEN ---
This patient, Shasta Obando, was admitted to Medical Room 346-01. Patient/family oriented to hospital policies and general routines including ID bracelet, bed and alarms, visiting hours, pain management, procedures, bathroom and other care routines, personal items, smoking policy, room service/diet, and visiting hours. Information on how to activate the Rapid Response Team has been discussed. Patient/Family are encouraged to report perceived risks to care and to ask questions if they do not understand what they are told or what they should do.
[2024-07-30] MEDS: guaiFENesin 12 HR 600 MG TABCR PO (21:25)
[2024-07-30] MEDS: BENZONATATE 100 MG CAPSULE PO (21:27)
[2024-07-30] MEDS: BENZOCAINE/MENTHOL (*BKC) 18 EA LOZENGE 1 LOZENGE PO (21:28)
[2024-07-30 22:42] LABS: Glucose Point of Care 190 mg/dl (65-105)
[2024-07-31] VITALS (13 sets, daily range): BP systolic 80–112; BP diastolic 36–67; PULSE 56–96; RESP 14–18; TEMP 36.8–37.1; O2SAT 75–98
[2024-07-31 05:46] LABS: Basophils Percent Auto 0.3 % (0.2-1.2); Eosinophils Percent Auto 0.4 % (0-4.4); Hematocrit 31.3 % (37.0-47.0); Hemoglobin 9.4 g/dL (12.0-15.0); Immature Granulocyte Absolute 0.04 K/mm3 (0.00-0.031); Immature Granulocyte Percent A 0.5 % (0-0.5); Lymphocytes Percent Auto 10.7 % (18.3-44.2); Mean Corpuscular Hemoglobin 32.5 pg (26-34); Mean Corpuscular Volume 108.3 fl (80-100); Monocytes Percent Auto 13.8 % (2.6-8.5); Neutrophils Absolute Auto 5.6 K/mm3 (1.3-6.7); Neutrophils Percent Auto 74.3 % (45.5-73.1); Nucleated Red Blood Cells Perc 0.3 % (0.0-0.2); Platelet Count Result 101 k/mm3 (150-375); Red Blood Count 2.89 M/mm3 (4.2-5.4); Red Cell Distribution Width 16.6 % (11.5-14.5); White Blood Count 7.5 K/mm3 (4.5-10.0)
[2024-07-31 06:00] LABS: Alanine Aminotransferase 20 U/L (6-35); Albumin Level 3.6 g/dL (3.5-5.1); Alkaline Phosphatase 89 U/L (38-126); Anion Gap 8 mmol/L (4-12); Aspartate Amino Transferase 36 U/L (14-36); Bilirubin,Total 1.1 mg/dL (0.2-1.3); Blood Urea Nitrogen 29 mg/dL (7-17); Calcium 7.2 mg/dL (8.4-10.2); Carbon Dioxide 38 mmol/L (22-30); Chloride 90 mmol/L (98-107); Estimated Glomerular Filt Rate 14; Glucose 139 mg/dL (65-110); Potassium 3.8 mmol/L (3.4-5.0); Sodium 136 mmol/L (137-145)
[2024-07-31 06:21] LABS: Anisocytosis 1+; Platelet Estimate Decreased (Adequate)
[2024-07-31 06:22] LABS: Macrocytosis 1+ (NORMAL); Schistocytes None Seen
[2024-07-31 08:03] LABS: Hemoglobin A1C 7.1 % (<5.7)
[2024-07-31 08:15] LABS: Glucose Point of Care 188 mg/dl (65-105)
[2024-07-31] MEDS: guaiFENesin 12 HR 600 MG TABCR PO ×2 (08:56→20:47)
[2024-07-31] MEDS: ATORVASTATIN 40 MG TABLET PO (08:56)
[2024-07-31] MEDS: CYANOCOBALAMIN 500 MCG TABLET PO (08:56)
[2024-07-31] MEDS: VITAMIN B CMPLX/VIT C/FOLIC AC 1 CAPSULE 1 CAP PO (08:56)
[2024-07-31] MEDS: SITagliptin PHOSPHATE 100 MG TABLET PO (08:56)
[2024-07-31] MEDS: PANTOPRAZOLE 40 MG TABLET PO ×2 (08:57→20:47)
[2024-07-31] MEDS: SEVELAMER CARBONATE 800 MG TABLET PO ×3 (08:57→17:34)
[2024-07-31] MEDS: CALCIUM CARBONATE (TUMS) 500 MG (200 MG ELEMENTAL) 1500 MG PO ×3 (08:59→17:35)
[2024-07-31 09:03] LABS: Hepatitis B Surface Antigen Negative (Negative)
[2024-07-31 10:36] LABS: Hepatitis B Surface Anti Res Indeterminate
[2024-07-31 12:02] LABS: Glucose Point of Care 284 mg/dl (65-105)
[2024-07-31 12:11] LABS: MRSA (PCR) NOT DETECTED (NOT DETECTE)
[2024-07-31] MEDS: INSULIN ASPART (*BKC) 100 UNITS/ML SUB-Q ×2 (13:02→17:55)
--- NOTE | 2024-07-31 13:47 | P.CONNP_ITS ---
Assessment and Plan Assessment and plan (1) End stage renal disease: Code(s): N18.6 - End stage renal disease Status: Chronic Assessment and Plan: * plan HD tomorrow * continue M/W/F dialysis schedule while hospitalized * follow electrolytes, volume status, and clearance (2) Hypoxia: Code(s): R09.02 - Hypoxemia Status: Acute Assessment and Plan: * as nted by EMS * 80% on room air * improved with 2L oxygen by nasal cannula * presumably due to mild pulmonary edema and RSV * no evidence of pneumonia * wean supplemental oxygen as tolerated (3) RSV infection: Qualifiers: RSV infection type: unspecified Qualified Code(s): B33.8 - Other specified viral diseases Code(s): B33.8 - Other specified viral diseases Status: Acute Assessment and Plan: * tested positive for RSV on 07/30 in ER * reported onset of symptoms on 07/28 * CXR negative for pneumonia * continues supportive care: * Mucinex * Tessalon Perles p.r.n. * DuoNeb as needed * Tylenol (4) Atrial fibrillation: Qualifiers: Atrial fibrillation type: unspecified Qualified Code(s): I48.91 - Unspecified atrial fibrillation Code(s): I48.91 - Unspecified atrial fibrillation Status: Chronic Assessment and Plan: * paroxysmal * rate controlled * not on anticoagulation (due to hx of GI bleeding versus fall risk?) (5) Anemia: Qualifiers: Anemia type: unspecified type Qualified Code(s): D64.9 - Anemia, unspecified Code(s): D64.9 - Anemia, unspecified Status: Chronic Assessment and Plan: * related to ESRD * Epogen with HD * follow trend of H/H (6) Hypertension: Qualifiers: Hypertension type: unspecified Qualified Code(s): I10 - Essential (primary) hypertension Code(s): I10 - Essential (primary) hypertension Status: Chronic Assessment and Plan: * reasonable control * folloe hemodynamics (7) Type 2 diabetes mellitus: Qualifiers: Diabetes mellitus complication status: without complication Diabetes mellitus assistant professor of german insulin use: without assistant professor of german use Qualified Code(s): E11.9 - Type 2 diabetes mellitus without complications Code(s): E11.9 - Type 2 diabetes mellitus without complications Status: Chronic Assessment and Plan: * follow accuchecks * glycemic control per hospitalists I will continue to follow the patient with you while she remains hospitalized and make further recommendations as needed. Thank you for allowing me to participate in the care of this patient. L History of Present Illness Reason for Consult Consult date: 07/31/24 Reason for consult: end stage renal disease Chief Complaint Chief complaint: RSV, Hypoxia, Generalized weakness History of Present Illness Narrative: The patient is a 79-year-old female with a past medical history as outlined below who presented to [facility] Emergency room via EMS from her dialysis unit/center with complaints of confusion and shortness of breath. The patient states that she has not been feeling very well for the last week. She has had shortness of breath with a productive cough of yellowish sputum. This been associated with chest congestion, rhinorrhea, poor appetite, generalized weakness/ fatigue, subjective chills, and body aches. She denies any chest pain, fevers, nausea, vomiting, or diarrhea. She had hoped that the symptoms would eventually pass with just supportive therapy but they seem to have progressively worsened in the last week. She presented for her regularly scheduled outpatient dialysis treatment yesterday. During her treatment, the dialysis nurses noted that she seemed to be confused at times in association with her generalized weakness that seemed worse following completion of her dialysis treatment. At the patient's request, EMS was called and she subsequently was transported to the emergency room for further evaluation. It should be noted that on EMS arrival to the dialysis unit, the patient's oxygen saturations were 80% on room air. With application of 2 L of oxygen, her O2 saturations improved to 98%. Workup and evaluation emergency room demonstrated the patient to be afebrile but with relative hypotension with a systolic BP in the high 90s. Her oxygen saturations were maintained on the 2 L of supplemental oxygen that was applied by EMS. Routine blood work demonstrated a CBC with a normal white blood cell count, relative anemia with a hemoglobin of 9.7, and a chemistry that was consistent with her known history of end-stage renal disease although her potassium was somewhat low presumably due the fact that she just completed her dialysis treatment. Viral testing for influenza and COVID were negative but she did test positive for RSV. Her chest x-ray showed mild pulmonary edema and cardiomegaly and her EKG showed rate controlled atrial fibrillation without any evidence of ischemic changes. Given her hypoxia and the constellation of symptoms as mentioned above, she was admitted to the hospital for further evaluation and therapy. Renal consultation was requested due to her end-stage renal disease. The patient normally dialyzes on a Sunday, Sunday, Sunday schedule under the care of Dr. Jacob Suarez at [facility]. From a dialysis perspective, she is compliant with her dialysis treatments and usually does not have any significant fluid gains in between her dialysis treatments. Her monthly labs are usually fairly stable as well. She tolerated her hemodialysis treatment yesterday at her outpatient dialysis unit without any issues other than some mild confusion during the treatment in association with generalized weakness as noted above. She is due for dialysis tomorrow. Currently, at the time my visit, she has not appear to be any acute distress. Review of Systems 2 Review of Systems: As per HPI. [facility] Past Medical History Medical History (Updated 08/08/24 @ 17:31 by Dmitri Costa MD) GERD (gastroesophageal reflux disease) Colon polyps IBS (irritable bowel syndrome) Tubular adenoma of colon Peripheral arterial disease History mid foot amputation. History of gastric ulcer Spinal stenosis at L4-L5 level High-grade central canal stenosis noted on MRI February 2017 Pulmonary hypertension Echocardiogram August 2019: EF 65-70 %, indeterminate left ventricular diastolic function, mild biatrial enlargement, mild mitral valve regurgitation, moderate tricuspid regurgitation, mild pulmonary hypertension with RVSP of 39 Hiatal hernia Thoracic ascending aortic aneurysm 4.[address] scan from August 2019 Anemia of chronic disease Megaloblastic anemia Paroxysmal atrial fibrillation Type 2 diabetes mellitus Hemoglobin A1c was 6.6 in July 2019. Hypertension Osteoporosis Hyperlipidemia AV fistula Left upper extremity End stage renal disease on dialysis Dialysis days are Sunday, Sunday, and Sunday. She is on the transplant list at [place]. Osteoarthritis of both knees Staphylococcal septicemia (~2013) Closed fracture of lateral portion of right tibial plateau (~2014) Surgical History Surgical History Amputated toe of left foot History of bilateral cataract extraction Amputation at midfoot 5th digit right footAnd the great toe on the left History of arthroplasty of right ankle Presence of Watchman left atrial appendage closure device History of arthroscopy (~12/07/12) wrist History of colonoscopy (~12/02/15) History of knee replacement (~2015) right Family History Family History Father Hypertension Heart disease Mother Diabetes mellitus Hypertension Tobacco dependence Lung cancer Sibling Heart disease Social History Social History Social History: The patient is and lives in [place]. She is originally from [place]. 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 She has 2 daughters who live in [place]. She has 1 son who lives in [facility] [place] [facility] . She designates her daughters as her surrogate decision makers. She is a lifelong nonsmoker. No alcohol or drug abuse. Primary care physician: Dr. David Coppola Code status: Full code Smoking status: Never smoker Second hand tobacco smoke exposure: No Alcohol intake: former Substance use: never Substance use type: does not use Do You Feel Safe in your Home?: Yes Lack of Transportation: No Lack of Food: Never True Current Housing: I Do Not Have Housing Concerned About Future Housing: No Difficulty Paying Gas/Electric Bills: No Difficulty Paying for Meds: No Currently Unemployed: No Education: High School Diploma/GED Difficulty w/ Childcare or Family Care: No Gender identity (if verbalized by the patient): Female Spiritual care concerns: No Agree to blood products: Yes Meds Home Medications and Allergies Home Medications ?Medication ?Instructions ?Recorded ?Confirmed ?Type cyanocobalamin (vitamin B-12) 500 500 mcg PO DAILY 06/12/19 07/30/24 History mcg tablet acetaminophen 500 mg tablet See Rx Instructions PO Q4H PRN Pain 02/20/20 07/30/24 History (Acetaminophen Extra Strength) sevelamer HCl 800 mg tablet 800 mg PO TID 03/29/20 07/30/24 History blood sugar diagnostic #500 ea 07/18/21 07/30/24 Rx atorvastatin 40 mg tablet 40 mg PO DAILY 10/25/21 07/30/24 History calcium carbonate (Tums) 1,500 mg PO TID 10/25/21 07/30/24 History vitamin B complex and vitamin C 1 cap PO DAILY 10/25/21 07/30/24 History no.20-folic acid 1 mg capsule (Renal Caps) carvedilol 12.5 mg tablet (Coreg) 3.125 mg PO BID 05/11/22 07/30/24 History foldiing walker #1 ea 01/11/23 07/30/24 Rx blood sugar diagnostic #500 ea 05/14/23 07/30/24 Rx pen needle, diabetic 32 gauge x #100 ea 05/14/23 07/30/24 Rx 1/5 denosumab 60 mg/mL subcutaneous 60 mg subcut [id number] #1 mL 06/01/23 07/30/24 Rx syringe (Prolia) liraglutide 0.6 mg/0.1 mL (18 mg/3 1.2 mg subcut HS 06/06/23 07/30/24 History mL) subcutaneous pen injector (Victoza 2-Agustín) insulin degludec 100 unit/mL (3 10 unit (0.1 mL) subcut HS #15 mL 06/25/23 07/30/24 Rx mL) subcutaneous pen (Tresiba FlexTouch U-100 insulin) Assited gait device #1 ea 08/23/23 07/30/24 Rx clotrimazole 1 % topical cream 1 applic topical Q12H 09/27/23 07/30/24 History (Antifungal (clotrimazole)) lidocaine-prilocaine 2.5 %-2.5 % 1 applic topical ONCE 09/27/23 07/30/24 History topical cream dicyclomine 10 mg capsule See Rx Instructions .Route 02/12/24 07/30/24 Rx .COMPLEX #60 caps sitagliptin phosphate 100 mg 100 mg PO DAILY #90 tabs 02/15/24 07/30/24 Rx tablet (Januvia) pantoprazole 40 mg tablet,delayed 40 mg PO Q12HR #60 tabs 06/16/24 07/30/24 Rx release ergocalciferol (vitamin D2) 1,250 See Rx Instructions .Route 06/26/24 07/30/24 Rx mcg (50,000 unit) capsule .COMPLEX #13 caps trazodone 50 mg tablet 100 mg (2 x 50 mg) PO QHS #180 tabs 06/26/24 07/30/24 Rx amoxicillin 500 mg capsule 500 mg PO Q8H #21 caps 07/28/24 07/30/24 Rx Allergies Allergy/AdvReac Type Severity Reaction Status Date / Time cephalexin Allergy Mild Rash Verified 07/30/24 14:57 enalapril Allergy Unknown cough Verified 07/30/24 14:57 pioglitazone Allergy Unknown Unknown Verified 07/30/24 14:57 tramadol Allergy Unknown hallucinati Verified 07/30/24 14:57 ons gabapentin Allergy Hallucinati Verified 07/30/24 14:57 ng cefazolin AdvReac Mild nausea/dizz Verified 07/30/24 14:57 iness Vital Signs Vital Signs Temp Pulse Resp BP Pulse Ox O2 Del Method O2 Flow Rate 07/31/24 12:05 65 07/31/24 09:07 91 Nasal Cannula 1 07/31/24 08:05 70 07/31/24 04:47 98.6 F 56 L 18 112/54 L 94 07/31/24 04:00 74 07/31/24 00:00 63 07/30/24 21:40 95 Nasal Cannula 1 07/30/24 21:00 98.6 F 88 18 114/68 95 07/30/24 20:44 77 07/30/24 19:20 65 12 100/50 L 100 07/30/24 18:42 74 20 110/52 L 98 07/30/24 18:15 63 20 99/47 L 100 Exam 2 Narrative: GENERAL APPEARANCE: elderly female in no acute distress HEENT: normocephalic, atraumatic, normal conjunctiva and sclera, nares patient NECK: no lymphadenopathy, thyromegaly, or JVD MOUTH: normal lips, teeth, and gums CARDIOVASCULAR: RRR, normal S1 and S2, no rub RESPIRATORY: coarse with a few crackles at the bases ABDOMEN: soft, nontender, nondistended, positive bowel sounds present EXTREMITIES: no evidence of cyanosis, clubbing, or edema NEUROLOGICAL: alert and oriented x 3; CN II - XII intact bilaterally; no focal deficits noted Results Lab Results 08/08/24 06:07 08/08/24 06:07 Lab results: Most recent lab results Calcium 7.2 mg/dL (8.4-10.2) L 07/31/24 05:31 Phosphorus 4.0 mg/dL (2.5-4.5) 07/31/24 05:31 Magnesium 2.0 mg/dL (1.6-2.3) 07/31/24 05:31
--- NOTE | 2024-07-31 14:53 | PHAR ---
Pharmacy verified home med: * Use from home * Liraglutide [Victoza 2-Agustín] 0.6 mg/0.1 mL (18 mg/3 mL) pen injector - Inject 1.8 mg dose under the skin once daily at bedtime
--- NOTE | 2024-07-31 16:32 | P.PNIM_ITS ---
Progress Note: A&P Assessment and Plan (1) Acute respiratory failure with hypoxia: Code(s): J96.01 - Acute respiratory failure with hypoxia Status: Acute Assessment and Plan: * Chest x-ray was negative * Currently on 1 L nasal cannula * Likely secondary to RSV infection (2) RSV infection: Qualifiers: RSV infection type: unspecified Qualified Code(s): B33.8 - Other specified viral diseases Code(s): B33.8 - Other specified viral diseases Status: Acute Assessment and Plan: * Supportive care * Respiratory panel positive for RSV * Continue DuoNebs, Tessalon Perles, Mucinex * Chest x-ray negative (3) ESRD (end stage renal disease) on dialysis: Code(s): N18.6 - End stage renal disease; Z99.2 - Dependence on renal dialysis Status: Chronic Assessment and Plan: * Creatinine 3.17, EGFR 14, potassium 3.8 * Nephrology consulted and following * Normally has dialysis Sunday * Continue to trend (4) Type 2 diabetes mellitus: Qualifiers: Diabetes mellitus complication status: without complication Diabetes mellitus jail insulin use: without exterminator helper termite use Qualified Code(s): E11.9 - Type 2 diabetes mellitus without complications Code(s): E11.9 - Type 2 diabetes mellitus without complications Status: Chronic Assessment and Plan: * Blood sugars ranging 139-284 * Hgb A1C 7.1 * Accu checks AC/HS * Low-dose SSI ordered * Continue Lantus 10 units at bedtime * Will hold Victoza and sitagliptin while inpatient * hypoglycemic protocol in place * Diabetic diet ordered (5) Atrial fibrillation: Qualifiers: Atrial fibrillation type: unspecified Qualified Code(s): I48.91 - Unsp ecified atrial fibrillation Code(s): I48.91 - Unspecified atrial fibrillation Status: Chronic Assessment and Plan: * EKG showing AFib rate controlled * Not currently on any home medications??? (6) Anemia: Qualifiers: Anemia type: unspecified type Qualified Code(s): D64.9 - Anemia, unspecified Code(s): D64.9 - Anemia, unspecified Status: Chronic Assessment and Plan: Likely secondary to her end-stage renal disease * Hemoglobin 9.4 (7) Hypertension: Qualifiers: Hypertension type: unspecified Qualified Code(s): I10 - Essential (primary) hypertension Code(s): I10 - Essential (primary) hypertension Status: Chronic Assessment and Plan: * Low blood pressures reported * Continue to hold home medications * Will give Albumin now to help improve B/P, if no improvement she may need to go to the ICU Time Spent With Patient Time with patient: 25 - 35 minutes Subjective Date/time seen: 07/31/24 16:32 Interval history: Interval history: This is a 79-year-old female who presented to the hospital on 07/30/2024 with complaints of shortness of breath and cough. Workup in the hospital included a chest x-ray which showed mild pulmonary edema and cardiomegaly. Respiratory panel was positive for RSV. Initial labs showed a normal white blood cell count of 10.0, hemoglobin 9.7, sodium 135, potassium 2.9, chloride 90, creatinine 2.01, EGFR 24. EKG showed AFib with a rate of 72. Subjective: Patient tachypneic and course today. Nursing reporting low blood pressures with systolic 80's. Labs and imaging reviewed. Review of Systems Review of Systems: All systems reviewed & are unremarkable except as noted in HPI and below Exam Narrative: General: In no acute distress Head: atraumatic, no encephalopathy Eyes: PERRLA, sclera clear ENT: moist mucous membranes, nasal passages clear Neck: supple, no JVD, no adenopathy, trachea midline Cardiac: Normal S1 and S2. No murmur, gallops or friction rubs, peripheral pulses intact. Respiratory: Lungs course bilaterally, tachypneic, on 1L NC Gastrointestinal: soft, non-distended, non-tender, normoactive bowel sounds. :anuric on HD M-W-F Extremities: moves all extremities well, no edema Skin: clean, dry, intact. No wounds or lesions. Neuro: Alert and oriented x4, cranial nerves intact, no neuro deficits. Psych: normal mood, normal affect, interactive Objective Data Vital Signs Vital Signs: Vital Signs - 24 hr 07/30/24 17:39 07/30/24 18:15 07/30/24 18:42 Temperature Pulse Rate 75 63 74 Respiratory Rate 20 20 20 Blood Pressure 111/47 L 99/47 L 110/52 L Pulse Oximetry 100 100 98 Oxygen Delivery Oxygen Flow Rate 07/30/24 19:20 07/30/24 20:44 07/30/24 21:00 Temperature 98.6 F Pulse Rate 65 77 88 Respiratory Rate 12 18 Blood Pressure 100/50 L 114/68 Pulse Oximetry 100 95 Oxygen Delivery Oxygen Flow Rate 07/30/24 21:40 07/31/24 00:00 07/31/24 04:00 Temperature Pulse Rate 63 74 Respiratory Rate Blood Pressure Pulse Oximetry 95 Oxygen Delivery Nasal Cannula Oxygen Flow Rate 1 07/31/24 04:47 07/31/24 08:05 07/31/24 09:07 Temperature 98.6 F Pulse Rate 56 L 70 Respiratory Rate 18 Blood Pressure 112/54 L Pulse Oximetry 94 91 Oxygen Delivery Nasal Cannula Oxygen Flow Rate 1 07/31/24 12:05 07/31/24 14:10 Temperature 98.3 F Pulse Rate 65 62 Respiratory Rate 18 Blood Pressure 80/36 L Pulse Oximetry 98 Oxygen Delivery Oxygen Flow Rate Intake/Output Intake/Output: Intake & Output 07/28/24 07/29/24 07/30/24 07/31/24 23:59 23:59 23:59 23:59 Intake Total 800 Balance 800 Meds/Results Medications: Active Medications Generic Name Dose Route Start Last Admin Trade Name Freq PRN Reason Stop Dose Admin Acetaminophen 650 mg 07/30/24 18:22 Acetaminophen 325 Mg Tablet PO Q6H PRN Mild Pain (1-3) or Fever Albuterol/Ipratropium 3 ml 07/30/24 18:22 Ipratropium 0.5 Mg/Albuterol Sulfate 2.5 Mg Ampul.Neb 3 Ml INHALATION Q6HRT PRN Shortness Of Breath Or Wheezing Atorvastatin Calcium 40 mg 07/31/24 09:00 07/31/24 08:56 Atorvastatin 40 Mg Tablet PO 40 mg DAILY THERESE Administration Benzocaine 1 lozenge 07/30/24 18:22 07/30/24 21:28 Benzocaine/Menthol (*Bkc) 18 Ea Lozenge PO 1 lozenge PRN PRN Administration Sore Throat Benzonatate 100 mg 07/30/24 18:22 07/30/24 21:27 Benzonatate 100 Mg Capsule PO 100 mg TID PRN Administration Cough Calcium Carbonate 1,500 mg 07/31/24 09:00 07/31/24 13:02 Calcium Carbonate (Tums) 500 Mg (200 Mg Elemental) PO 1,500 mg TID THERESE Administration Cyanocobalamin 500 mcg 07/31/24 09:00 07/31/24 08:56 Cyanocobalamin 500 Mcg Tablet PO 500 mcg DAILY THERESE Administration Dextrose 12.5 gm 07/30/24 18:29 Dextrose 50% 25 Gm/50 Ml Syringe IV PUSH PRN PRN Hypoglycemia Protocol Dicyclomine HCl 10 mg 07/30/24 21:35 Dicyclomine Hcl 10 Mg Capsule PO BID PRN Abdominal Pain Ergocalciferol 50,000 units 08/02/24 09:00 Ergocalciferol 50,000 Units Capsule PO WEEKLY THERESE Glucagon 1 mg 07/30/24 18:29 Glucagon For Inj 1 Mg Vial IM PRN PRN Hypoglycemia Protocol Glucose 15 gm 07/30/24 18:29 Glucose Oral Gel 15 Gm Of Glucse In 37.5 Gm Tube PO PRN PRN Hypoglycemia Protocol Guaifenesin 600 mg 07/30/24 21:00 07/31/24 08:56 Guaifenesin 12 Hr 600 Mg Tabcr PO 600 mg Q12HR THERESE Administration Dextrose 1,000 mls @ 100 mls/hr 07/30/24 18:29 Dextrose 5% 1,000 Ml IVPB PRN PRN Hypoglycemia Protocol Insulin Aspart 2 - 5 units 07/31/24 08:00 07/31/24 13:02 Insulin Aspart (*Bkc) 100 Units/Ml SUB-Q 3 units TIDWM THERESE Administration Protocol Insulin Glargine 10 units 07/31/24 21:00 Insulin Glargine (*Bkc) 100 Units/Ml SUB-Q HS THERESE Miconazole Nitrate 1 applic 07/31/24 09:00 07/31/24 09:00 Miconazole Nitrate 2% Cream 30 Gm Tube TOPICAL Not Given Q12HR THERESE * Home Med * 1.8 mg 07/31/24 21:00 Liraglutide [Victoza SUB-Q 08/30/24 20:59 2-Agustín] 0.6 Mg/0.1 HS THERESE Ml (18 Mg/3 Ml) Pen Injector Pantoprazole Sodium 40 mg 07/31/24 09:00 07/31/24 08:57 Pantoprazole 40 Mg Tablet PO 40 mg Q12HR THERESE Administration Sevelamer Carbonate 800 mg 07/31/24 08:00 07/31/24 13:01 Sevelamer Carbonate 800 Mg Tablet PO 800 mg TIDWM THERESE Administration Sitagliptin Phosphate 100 mg 07/31/24 09:00 07/31/24 08:56 Sitagliptin Phosphate 100 Mg Tablet PO 100 mg DAILY THERESE Administration Vitamin B Complex/Folic Acid 1 cap 07/31/24 09:00 07/31/24 08:56 Vitamin B Cmplx/Vit C/Folic Ac 1 Capsule PO 1 cap DAILY THERESE Administration Radiology Results: ITS Impressions Chest X-Ray 07/30/24 15:11 IMPRESSION: 1. Mild pulmonary edema. 2. Cardiomegaly. Labs Labs: Laboratory Results - last 24 hr 07/30/24 07/30/24 07/31/24 16:07 21:05 05:31 WBC 7.5 RBC 2.89 L Hgb 9.4 L Hct 31.3 L MCV 108.3 H MCH 32.5 MCHC 30.0 L RDW 16.6 H Plt Count 101 L MPV 12.0 H Immature Gran % (Auto) 0.5 Neut % (Auto) 74.3 H Lymph % (Auto) 10.7 L [place] % (Auto) 13.8 H Eos % (Auto) 0.4 Baso % (Auto) 0.3 Lymph # (Auto) 0.80 L [place] # (Auto) 1.0 H Eos # (Auto) 0.0 Baso # (Auto) 0.0 Abs Immat Gran (auto) 0.04 H Absolute Neuts (auto) 5.6 Absolute Nucleated RBC 0.020 H Nucleated RBC % 0.3 H Platelet Estimate Decreased Anisocytosis 1+ Macrocytosis 1+ Schistocytes None seen Sodium 136 L Potassium 3.8 Chloride 90 L Carbon Dioxide 38 H Anion Gap 8 BUN 29 H Creatinine 3.17 H Estim Creat Clear Calc Not Reportable Estimated GFR 14 L Glucose 139 H POC Capillary Glucose 190 H Hemoglobin A1c 7.1 H Calcium 7.2 L Phosphorus 4.0 Magnesium 2.0 Total Bilirubin 1.1 AST 36 ALT 20 Alkaline Phosphatase 89 Total Protein 6.0 L Albumin 3.6 Nasal MRSA (PCR) Hep Bs Antigen Negative Hep Bs Antibody Indeterminate Influenza A (RT-PCR) Negative Influenza B (RT-PCR) Negative RSV (RT-PCR) Positive A SARS-CoV-2 RNA (RT-PCR) Negative 07/31/24 07/31/24 07/31/24 08:11 10:55 11:59 WBC RBC Hgb Hct MCV MCH MCHC RDW Plt Count MPV Immature Gran % (Auto) Neut % (Auto) Lymph % (Auto) [place] % (Auto) Eos % (Auto) Baso % (Auto) Lymph # (Auto) [place] # (Auto) Eos # (Auto) Baso # (Auto) Abs Immat Gran (auto) Absolute Neuts (auto) Absolute Nucleated RBC Nucleated RBC % Platelet Estimate Anisocytosis Macrocytosis Schistocytes Sodium Potassium Chloride Carbon Dioxide Anion Gap BUN Creatinine Estim Creat Clear Calc Estimated GFR Glucose POC Capillary Glucose 188 H 284 H Hemoglobin A1c Calcium Phosphorus Magnesium Total Bilirubin AST ALT Alkaline Phosphatase Total Protein Albumin Nasal MRSA (PCR) Not detected Hep Bs Antigen Hep Bs Antibody Influenza A (RT-PCR) Influenza B (RT-PCR) RSV (RT-PCR) SARS-CoV-2 RNA (RT-PCR) Quality VTE Prophylaxis VTE prophylaxis: mechanical ordered
[2024-07-31 17:27] LABS: Glucose Point of Care 399 mg/dl (65-105)
--- NOTE | 2024-07-31 17:40 | PC.NURSE ---
Notified Yeimy [place] of soft blood pressure. She stated she will review the chart and discuss case with Dr. Taylor. Patient is not symptomatic. Order received for Albumin.
[2024-07-31] MEDS: ALBUMIN HUMAN 25% 12.5 GM/50ML 50 ML IVPB (17:57)
[2024-07-31 20:10] LABS: Glucose Point of Care 358 mg/dl (65-105)
[2024-07-31] MEDS: MICONAZOLE NITRATE 2% CREAM 30 GM TUBE 1 APPLIC TOPICAL (20:59)
[2024-07-31] MEDS: INSULIN GLARGINE (*BKC) 100 UNITS/ML 10 UNITS SUB-Q (20:59)
[2024-07-31] MEDS: INSULIN GLARGINE (*BKC) 100 UNITS/ML 20 UNITS SUB-Q (21:37)
[2024-08-01] VITALS (26 sets, daily range): BP systolic 96–149; BP diastolic 43–96; PULSE 61–98; RESP 16–18; TEMP 36.4–37.3; O2SAT 90–100
[2024-08-01 06:38] LABS: Glucose Point of Care 150 mg/dl (65-105)
[2024-08-01 07:48] LABS: Basophils Percent Auto 0.3 % (0.2-1.2); Eosinophils Absolute Auto 0.1 K/mm3 (0-0.3); Hematocrit 29.3 % (37.0-47.0); Hemoglobin 8.8 g/dL (12.0-15.0); Immature Granulocyte Absolute 0.04 K/mm3 (0.00-0.031); Immature Granulocyte Percent A 0.6 % (0-0.5); Immature Platelet Fraction Pct 6.6 % (0.9-11.2); Lymphocytes Absolute Auto 0.93 K/mm3 (0.9-3.2); Lymphocytes Percent Auto 13.2 % (18.3-44.2); Mean Corpuscular Volume 106.5 fl (80-100); Mean Platelet Volume 11.6 fl (7.4-10.4); Monocytes Absolute Auto 0.8 K/mm3 (0.1-0.6); Monocytes Percent Auto 11.6 % (2.6-8.5); Neutrophils Absolute Auto 5.2 K/mm3 (1.3-6.7); Neutrophils Percent Auto 73.3 % (45.5-73.1); Platelet Count Result 100 k/mm3 (150-375); Red Blood Count 2.75 M/mm3 (4.2-5.4); Red Cell Distribution Width 16.9 % (11.5-14.5); White Blood Count 7.1 K/mm3 (4.5-10.0)
[2024-08-01 07:57] LABS: Albumin Level 3.5 g/dL (3.5-5.1); Anion Gap 8 mmol/L (4-12); Blood Urea Nitrogen 46 mg/dL (7-17); Calcium 7.2 mg/dL (8.4-10.2); Carbon Dioxide 38 mmol/L (22-30); Chloride 88 mmol/L (98-107); Estimated Glomerular Filt Rate 8; Glucose 139 mg/dL (65-110); Potassium 3.9 mmol/L (3.4-5.0); Sodium 134 mmol/L (137-145)
[2024-08-01 08:25] LABS: Platelet Estimate Decreased (Adequate)
[2024-08-01 08:26] LABS: Macrocytosis 1+ (NORMAL); Schistocytes None Seen
[2024-08-01 08:52] LABS: Glucose Point of Care 137 mg/dl (65-105)
[2024-08-01] MEDS: ATORVASTATIN 40 MG TABLET PO (09:45)
[2024-08-01] MEDS: guaiFENesin 12 HR 600 MG TABCR PO ×2 (09:45→20:38)
[2024-08-01] MEDS: PANTOPRAZOLE 40 MG TABLET PO ×2 (09:45→20:38)
[2024-08-01] MEDS: SEVELAMER CARBONATE 800 MG TABLET PO ×3 (09:45→17:30)
[2024-08-01] MEDS: CYANOCOBALAMIN 500 MCG TABLET PO (09:45)
[2024-08-01] MEDS: CALCIUM CARBONATE (TUMS) 500 MG (200 MG ELEMENTAL) 1500 MG PO ×2 (09:45→14:39)
[2024-08-01] MEDS: VITAMIN B CMPLX/VIT C/FOLIC AC 1 CAPSULE 1 CAP PO (09:46)
[2024-08-01] MEDS: HEPARIN SODIUM 1,000 UNITS/ML VIAL 1000 UNITS (10:25)
--- NOTE | 2024-08-01 10:35 | PCPTNOTE ---
attempted PT eval, pt currently at dialysis, left room around 10am, will follow
--- NOTE | 2024-08-01 10:43 | P.PNIM_ITS ---
Progress Note: A&P Assessment and Plan (1) Acute respiratory failure with hypoxia: Code(s): J96.01 - Acute respiratory failure with hypoxia Status: Acute Assessment and Plan: * Chest x-ray was negative * Currently on 1 L nasal cannula * Likely secondary to RSV infection 08/01 * continue to wean O2 for sat greater than 92% * currently still on 1 L nasal cannula (2) RSV infection: Qualifiers: RSV infection type: unspecified Qualified Code(s): B33.8 - Other specified viral diseases Code(s): B33.8 - Other specified viral diseases Status: Acute Assessment and Plan: * Supportive care * Respiratory panel positive for RSV * Continue DuoNebs, Tessalon Perles, Mucinex * Chest x-ray negative 08/01 * no change to current treatment plan (3) ESRD (end stage renal disease) on dialysis: Code(s): N18.6 - End stage renal disease; Z99.2 - Dependence on renal dialysis Status: Chronic Assessment and Plan: * Creatinine 3.17, EGFR 14, potassium 3.8 * Nephrology consulted and following * Normally has dialysis Sunday * Continue to trend 08/01 * creatinine 5.40, EGFR 8, potassium is 3.9 * HD today with 1L removed. She was hypotensive in the beginning and was given a dose of albumin which helped her blood pressure recover during dialysis. * nephrology following * continue to trend (4) Type 2 diabetes mellitus: Qualifiers: Diabetes mellitus complication status: without complication Diabetes mellitus detention insulin use: without detention use Qualified Code(s): E11.9 - Type 2 diabetes mellitus without complications Code(s): E11.9 - Type 2 diabetes mellitus without complications Status: Chronic Assessment and Plan: * Blood sugars ranging 139-284 * Hgb A1C 7.1 * Accu checks AC/HS * Low-dose SSI ordered * Continue Lantus 10 units at bedtime * Will hold Victoza and sitagliptin while inpatient * hypoglycemic protocol in place * Diabetic diet ordered (5) Atrial fibrillation: Qualifiers: Atrial fibrillation type: unspecified Qualified Code(s): I48.91 - Unspecified atrial fibrillation Code(s): I48.91 - Unspecified atrial fibrillation Status: Chronic Assessment and Plan: * EKG showing AFib rate controlled * Not currently on any home medications??? (6) Anemia: Qualifiers: Anemia type: unspecified type Qualified Code(s): D64.9 - Anemia, unspecified Code(s): D64.9 - Anemia, unspecified Status: Chronic Assessment and Plan: Likely secondary to her end-stage renal disease * Hemoglobin 8.8 (7) Hypertension: Qualifiers: Hypertension type: unspecified Qualified Code(s): I10 - Essential (primary) hypertension Code(s): I10 - Essential (primary) hypertension Status: Chronic Assessment and Plan: * Low blood pressures reported * Continue to hold home medications * Will give Albumin now to help improve B/P, if no improvement she may need to go to the ICU 08/01 * blood pressure is improving, ranging 110/46 to 133/52 * will continue to hold home medications at this time, re-evaluate the morning Time Spent With Patient Time with patient: 25 - 35 minutes Subjective Date/time seen: 08/01/24 10:43 Interval history: Interval history: This is a 79-year-old female who presented to the hospital on 07/30/2024 with complaints of shortness of breath and cough. Workup in the hospital included a chest x-ray which showed mild pulmonary edema and cardiomegaly. Respiratory panel was positive for RSV. Initial labs showed a normal white blood cell count of 10.0, hemoglobin 9.7, sodium 135, potassium 2.9, chloride 90, creatinine 2.01, EGFR 24. EKG showed AFib with a rate of 72. Subjective: Patient denies any new complaints today. Labs reviewed. Review of Systems Review of Systems: All systems reviewed & are unremarkable except as noted in HPI and below Constitutional: Constitutional: Reports as per HPI and Reports no additional constitutional complaints Eyes: Eyes: Reports as per HPI and Reports no additional eye complaints ENT: Reports system reviewed and no additional complaints, except as documented and Reports as per HPI Cardiovascular: Cardiovascular: Reports as per HPI and Reports no additional cardiovascular complaints Respiratory: Respiratory: Reports as per HPI and Reports no additional respiratory complaints Gastrointestinal: Gastrointestinal: Reports as per HPI and Reports no additional gastrointestinal complaints Genitourinary: Genitourinary: Reports no additional female genitourinary complaints and Reports as per HPI Musculoskeletal: Musculoskeletal: Reports no additional musculoskeletal complaints and Reports as per HPI Integumentary/Breasts: Skin/Breast: Reports system reviewed and no additional complaints, except as docu and Reports as per HPI Neurologic: Reports system reviewed and no additional complaints, except as documented and Reports as per HPI Psychiatric: Psychiatric: Reports no additional psychiatric complaints and Reports as per HPI Exam Narrative: General: In no acute distress Cardiac: Normal S1 and S2. No murmur, gallops or friction rubs, peripheral pulses intact. Respiratory: Lungs course bilaterally, on 1L NC Gastrointestinal: soft, non-distended, non-tender, normoactive bowel sounds. :anuric on HD M-W-F Neuro: Alert and oriented x4 Objective Data Vital Signs Vital Signs: Vital Signs - 24 hr 07/31/24 12:05 07/31/24 14:10 07/31/24 16:04 Temperature 98.3 F Pulse Rate 65 62 69 Respiratory Rate 18 Blood Pressure 80/36 L Pulse Oximetry 98 Oxygen Delivery Oxygen Flow Rate 07/31/24 17:44 07/31/24 18:00 07/31/24 18:10 Temperature Pulse Rate Respiratory Rate Blood Pressure 107/48 L Pulse Oximetry 75 L 96 Oxygen Delivery Room Air Nasal Cannula Oxygen Flow Rate 2 07/31/24 20:00 07/31/24 22:00 08/01/24 00:00 Temperature 98.7 F Pulse Rate 74 96 63 Respiratory Rate 14 Blood Pressure 110/67 Pulse Oximetry 94 Oxygen Delivery Oxygen Flow Rate 08/01/24 04:00 08/01/24 06:00 08/01/24 08:26 Temperature 98.4 F Pulse Rate 70 71 Respiratory Rate 16 Blood Pressure 113/68 Pulse Oximetry 90 91 Oxygen Delivery Nasal Cannula Oxygen Flow Rate 1 Intake/Output Intake/Output: Intake & Output 07/29/24 07/30/24 07/31/24 08/01/24 23:59 23:59 23:59 23:59 Intake Total 1000 250 Balance 1000 250 Meds/Results Medications: Active Medications Generic Name Dose Route Start Last Admin Trade Name Freq PRN Reason Stop Dose Admin Acetaminophen 650 mg 07/30/24 18:22 Acetaminophen 325 Mg Tablet PO Q6H PRN Mild Pain (1-3) or Fever Albuterol/Ipratropium 3 ml 07/30/24 18:22 Ipratropium 0.5 Mg/Albuterol Sulfate 2.5 Mg Ampul.Neb 3 Ml INHALATION Q6HRT PRN Shortness Of Breath Or Wheezing Atorvastatin Calcium 40 mg 07/31/24 09:00 08/01/24 09:45 Atorvastatin 40 Mg Tablet PO 40 mg DAILY THERESE Administration Benzocaine 1 lozenge 07/30/24 18:22 07/30/24 21:28 Benzocaine/Menthol (*Bkc) 18 Ea Lozenge PO 1 lozenge PRN PRN Administration Sore Throat Benzonatate 100 mg 07/30/24 18:22 07/30/24 21:27 Benzonatate 100 Mg Capsule PO 100 mg TID PRN Administration Cough Calcium Carbonate 1,500 mg 07/31/24 09:00 08/01/24 09:45 Calcium Carbonate (Tums) 500 Mg (200 Mg Elemental) PO 1,500 mg TID THERESE Administration Cyanocobalamin 500 mcg 07/31/24 09:00 08/01/24 09:45 Cyanocobalamin 500 Mcg Tablet PO 500 mcg DAILY THERESE Administration Dextrose 12.5 gm 07/30/24 18:29 Dextrose 50% 25 Gm/50 Ml Syringe IV PUSH PRN PRN Hypoglycemia Protocol Dicyclomine HCl 10 mg 07/30/24 21:35 Dicyclomine Hcl 10 Mg Capsule PO BID PRN Abdominal Pain Epoetin Son-epbx 10,000 units 08/01/24 19:03 Epoetin Son-Epbx 10,000 Units/Ml Vial IV PUSH 08/01/24 19:04 ONCE ONE Ergocalciferol 50,000 units 08/02/24 09:00 Ergocalciferol 50,000 Units Capsule PO WEEKLY THERESE Glucagon 1 mg 07/30/24 18:29 Glucagon For Inj 1 Mg Vial IM PRN PRN Hypoglycemia Protocol Glucose 15 gm 07/30/24 18:29 Glucose Oral Gel 15 Gm Of Glucse In 37.5 Gm Tube PO PRN PRN Hypoglycemia Protocol Guaifenesin 600 mg 07/30/24 21:00 08/01/24 09:45 Guaifenesin 12 Hr 600 Mg Tabcr PO 600 mg Q12HR THERESE Administration Dextrose 1,000 mls @ 100 mls/hr 07/30/24 18:29 Dextrose 5% 1,000 Ml IVPB PRN PRN Hypoglycemia Protocol Albumin Human 50 mls @ 999 mls/hr 08/01/24 07:00 Albutein IVPB 08/31/24 06:59 Q10M PRN HYPOTENSION Insulin Aspart 2 - 5 units 07/31/24 08:00 08/01/24 09:45 Insulin Aspart (*Bkc) 100 Units/Ml SUB-Q Not Given TIDWM [facility] Protocol Insulin Glargine 30 units 08/01/24 21:00 Insulin Glargine (*Bkc) 100 Units/Ml SUB-Q HS [facility] Miconazole Nitrate 1 applic 07/31/24 09:00 08/01/24 09:46 Miconazole Nitrate 2% Cream 30 Gm Tube TOPICAL Not Given Q12HR THERESE * Home Med * 1.8 mg 07/31/24 21:00 Liraglutide [Victoza SUB-Q 08/30/24 20:59 2-Agustín] 0.6 Mg/0.1 HS THERESE Ml (18 Mg/3 Ml) Pen Injector Pantoprazole Sodium 40 mg 07/31/24 09:00 08/01/24 09:45 Pantoprazole 40 Mg Tablet PO 40 mg Q12HR THERESE Administration Sevelamer Carbonate 800 mg 07/31/24 08:00 08/01/24 09:45 Sevelamer Carbonate 800 Mg Tablet PO 800 mg TIDWM THERESE Administration Sitagliptin Phosphate 100 mg 07/31/24 09:00 07/31/24 08:56 Sitagliptin Phosphate 100 Mg Tablet PO 100 mg DAILY THERESE Administration Vitamin B Complex/Folic Acid 1 cap 07/31/24 09:00 08/01/24 09:46 Vitamin B Cmplx/Vit C/Folic Ac 1 Capsule PO 1 cap DAILY THERESE Administration Radiology Results: ITS Impressions Chest X-Ray 07/30/24 15:11 IMPRESSION: 1. Mild pulmonary edema. 2. Cardiomegaly. Labs Labs: Laboratory Results - last 24 hr 07/31/24 07/31/24 07/31/24 10:55 11:59 17:21 WBC RBC Hgb Hct MCV MCH MCHC RDW Plt Count MPV Immature Gran % (Auto) Neut % (Auto) Lymph % (Auto) [place] % (Auto) Eos % (Auto) Baso % (Auto) Lymph # (Auto) [place] # (Auto) Eos # (Auto) Baso # (Auto) Abs Immat Gran (auto) Absolute Neuts (auto) Absolute Nucleated RBC Nucleated RBC % Platelet Estimate % Immature Plt Fraction Macrocytosis Schistocytes Sodium Potassium Chloride Carbon Dioxide Anion Gap BUN Creatinine Estim Creat Clear Calc Estimated GFR Glucose POC Capillary Glucose 284 H 399 H Calcium Phosphorus Albumin Nasal MRSA (PCR) Not detected 07/31/24 08/01/24 08/01/24 20:08 06:34 07:35 WBC 7.1 RBC 2.75 L Hgb 8.8 L Hct 29.3 L MCV 106.5 H MCH 32.0 MCHC 30.0 L RDW 16.9 H Plt Count 100 L MPV 11.6 H Immature Gran % (Auto) 0.6 H Neut % (Auto) 73.3 H Lymph % (Auto) 13.2 L [place] % (Auto) 11.6 H Eos % (Auto) 1.0 Baso % (Auto) 0.3 Lymph # (Auto) 0.93 [place] # (Auto) 0.8 H Eos # (Auto) 0.1 Baso # (Auto) 0.0 Abs Immat Gran (auto) 0.04 H Absolute Neuts (auto) 5.2 Absolute Nucleated RBC 0.000 Nucleated RBC % 0.0 Platelet Estimate Decreased % Immature Plt Fraction 6.6 Macrocytosis 1+ Schistocytes None seen Sodium 134 L Potassium 3.9 Chloride 88 L Carbon Dioxide 38 H Anion Gap 8 BUN 46 H D Creatinine 5.40 H Estim Creat Clear Calc Not Reportable Estimated GFR 8 L Glucose 139 H POC Capillary Glucose 358 H 150 H Calcium 7.2 L Phosphorus 4.0 Albumin 3.5 Nasal MRSA (PCR) 08/01/24 08:47 WBC RBC Hgb Hct MCV MCH MCHC RDW Plt Count MPV Immature Gran % (Auto) Neut % (Auto) Lymph % (Auto) [place] % (Auto) Eos % (Auto) Baso % (Auto) Lymph # (Auto) [place] # (Auto) Eos # (Auto) Baso # (Auto) Abs Immat Gran (auto) Absolute Neuts (auto) Absolute Nucleated RBC Nucleated RBC % Platelet Estimate % Immature Plt Fraction Macrocytosis Schistocytes Sodium Potassium Chloride Carbon Dioxide Anion Gap BUN Creatinine Estim Creat Clear Calc Estimated GFR Glucose POC Capillary Glucose 137 H Calcium Phosphorus Albumin Nasal MRSA (PCR) Quality VTE Prophylaxis VTE prophylaxis: mechanical ordered
[2024-08-01] MEDS: ALBUMIN HUMAN 25% 12.5 GM/50ML 100 ML 999 GM (10:48)
--- NOTE | 2024-08-01 11:16 | P.PNNP_ITS ---
Progress Note: A&P Assessment and Plan (1) End stage renal disease: Code(s): N18.6 - End stage renal disease Status: Chronic Assessment and Plan: * HD today * continue M/W/F dialysis schedule while hospitalized * follow electrolytes, volume status, and clearance (2) Hypoxia: Code(s): R09.02 - Hypoxemia Status: Acute Assessment and Plan: * as noted by EMS * 80% on room air * improved with 2L oxygen by nasal cannula * presumably due to mild pulmonary edema and RSV (as noted on admission) * no evidence of pneumonia by CXR * wean supplemental oxygen as tolerated (3) RSV infection: Qualifiers: RSV infection type: unspecified Qualified Code(s): B33.8 - Other specified viral diseases Code(s): B33.8 - Other specified viral diseases Status: Acute Assessment and Plan: * tested positive for RSV on 07/30 in ER * reported onset of symptoms on 07/28 * CXR negative for pneumonia * continues supportive care: * Mucinex * Tessalon Perles p.r.n. * DuoNeb as needed * Tylenol (4) Atrial fibrillation: Qualifiers: Atrial fibrillation type: unspecified Qualified Code(s): I48.91 - Unspecified atrial fibrillation Code(s): I48.91 - Unspecified atrial fibrillation Status: Chronic Assessment and Plan: * paroxysmal * rate controlled * not on anticoagulation (due to hx of GI bleeding versus fall risk?) (5) Anemia: Qualifiers: Anemia type: unspecified type Qualified Code(s): D64.9 - Anemia, unspecified Code(s): D64.9 - Anemia, unspecified Status: Chronic Assessment and Plan: * related to ESRD * Epogen with HD * follow trend of H/H (6) Hypertension: Qualifiers: Hypertension type: unspecified Qualified Code(s): I10 - Essential (primary) hypertension Code(s): I10 - Essential (primary) hypertension Status: Chronic Assessment and Plan: * reasonable control * follow hemodynamics (7) Type 2 diabetes mellitus: Qualifiers: Diabetes mellitus mcfp insulin use: without mcfp use Diabetes mellitus complication status: without complication Qualified Code(s): E11.9 - Type 2 diabetes mellitus without complications Code(s): E11.9 - Type 2 diabetes mellitus without complications Status: Chronic Assessment and Plan: * follow accuchecks * glycemic control per hospitalists Will continue to follow. L Subjective Date/time seen: 08/01/24 11:16 Interval history: Follow-up for end stage renal disease on hemodialysis. Tolerating dialysis treatment at the time of my visit (seen on HD at 11:05AM); issues with hypotension yesterday afternoon but better hemodynamics noted currently; no acute distress voiced when seen. Exam 2 Narrative: General: elderly female in NAD Heart: normal S1 and S2; no rub Lungs: coarse breath sounds Abdomen: soft, nontender, nondistended, positive bowel sounds Extremities: no cyanosis or clubbing; no edema Skin: warm and dry Objective Data Vital Signs Vital Signs: Vital Signs Temp Pulse Resp BP Pulse Ox O2 Del Method O2 Flow Rate 08/01/24 11:15 65 105/45 L 08/01/24 11:00 66 113/96 H 08/01/24 10:45 88 146/66 H 08/01/24 10:31 66 96/46 L 08/01/24 10:14 99.1 F 67 18 110/46 L 100 08/01/24 10:14 1 08/01/24 08:26 91 Nasal Cannula 1 08/01/24 08:04 63 08/01/24 06:00 98.4 F 71 16 113/68 90 08/01/24 04:00 70 08/01/24 00:00 63 07/31/24 22:00 98.7 F 96 14 110/67 94 07/31/24 20:00 74 07/31/24 18:10 96 Nasal Cannula 2 07/31/24 18:00 75 L Room Air 07/31/24 17:44 107/48 L 07/31/24 16:04 69 Intake/Output Intake/Output: Intake & Output 07/29/24 07/30/24 07/31/24 08/01/24 23:59 23:59 23:59 23:59 Intake Total 1000 370 Output Total 1000 Balance 1000 -630 Meds/Results Medications: Active Medications Generic Name Dose Route Start Last Admin Trade Name Freq PRN Reason Stop Dose Admin Acetaminophen 650 mg 07/30/24 18:22 Acetaminophen 325 Mg Tablet PO Q6H PRN Mild Pain (1-3) or Fever Albuterol/Ipratropium 3 ml 07/30/24 18:22 Ipratropium 0.5 Mg/Albuterol Sulfate 2.5 Mg Ampul.Neb 3 Ml INHALATION Q6HRT PRN Shortness Of Breath Or Wheezing Atorvastatin Calcium 40 mg 07/31/24 09:00 08/01/24 09:45 Atorvastatin 40 Mg Tablet PO 40 mg DAILY THERESE Administration Benzocaine 1 lozenge 07/30/24 18:22 07/30/24 21:28 Benzocaine/Menthol (*Bkc) 18 Ea Lozenge PO 1 lozenge PRN PRN Administration Sore Throat Benzonatate 100 mg 07/30/24 18:22 07/30/24 21:27 Benzonatate 100 Mg Capsule PO 100 mg TID PRN Administration Cough Calcium Carbonate 1,500 mg 07/31/24 09:00 08/01/24 14:39 Calcium Carbonate (Tums) 500 Mg (200 Mg Elemental) PO 1,500 mg TID THERESE Administration Cyanocobalamin 500 mcg 07/31/24 09:00 08/01/24 09:45 Cyanocobalamin 500 Mcg Tablet PO 500 mcg DAILY THERESE Administration Dextrose 12.5 gm 07/30/24 18:29 Dextrose 50% 25 Gm/50 Ml Syringe IV PUSH PRN PRN Hypoglycemia Protocol Dicyclomine HCl 10 mg 07/30/24 21:35 Dicyclomine Hcl 10 Mg Capsule PO BID PRN Abdominal Pain Epoetin Son-epbx 10,000 units 08/01/24 19:03 08/01/24 12:16 Epoetin Son-Epbx 10,000 Units/Ml Vial IV PUSH 08/01/24 19:04 10,000 units ONCE ONE Administration Ergocalciferol 50,000 units 08/02/24 09:00 Ergocalciferol 50,000 Units Capsule PO WEEKLY THERESE Glucagon 1 mg 07/30/24 18:29 Glucagon For Inj 1 Mg Vial IM PRN PRN Hypoglycemia Protocol Glucose 15 gm 07/30/24 18:29 Glucose Oral Gel 15 Gm Of Glucse In 37.5 Gm Tube PO PRN PRN Hypoglycemia Protocol Guaifenesin 600 mg 07/30/24 21:00 08/01/24 09:45 Guaifenesin 12 Hr 600 Mg Tabcr PO 600 mg Q12HR THERESE Administration Dextrose 1,000 mls @ 100 mls/hr 07/30/24 18:29 Dextrose 5% 1,000 Ml IVPB PRN PRN Hypoglycemia Protocol Albumin Human 50 mls @ 999 mls/hr 08/01/24 07:00 Albutein IVPB 08/31/24 06:59 Q10M PRN HYPOTENSION Insulin Aspart 2 - 5 units 07/31/24 08:00 08/01/24 15:07 Insulin Aspart (*Bkc) 100 Units/Ml SUB-Q Not Given TIDWM THERESE Protocol Insulin Glargine 30 units 08/01/24 21:00 Insulin Glargine (*Bkc) 100 Units/Ml SUB-Q HS [facility] Miconazole Nitrate 1 applic 07/31/24 09:00 08/01/24 09:46 Miconazole Nitrate 2% Cream 30 Gm Tube TOPICAL Not Given Q12HR THERESE * Home Med * 1.8 mg 07/31/24 21:00 Liraglutide [Victoza SUB-Q 08/30/24 20:59 2-Agustín] 0.6 Mg/0.1 HS [facility] Ml (18 Mg/3 Ml) Pen Injector Pantoprazole Sodium 40 mg 07/31/24 09:00 08/01/24 09:45 Pantoprazole 40 Mg Tablet PO 40 mg Q12HR THERESE Administration Sevelamer Carbonate 800 mg 07/31/24 08:00 08/01/24 14:39 Sevelamer Carbonate 800 Mg Tablet PO 800 mg TIDWM THERESE Administration Sitagliptin Phosphate 100 mg 07/31/24 09:00 07/31/24 08:56 Sitagliptin Phosphate 100 Mg Tablet PO 100 mg DAILY THERESE Administration Vitamin B Complex/Folic Acid 1 cap 07/31/24 09:00 08/01/24 09:46 Vitamin B Cmplx/Vit C/Folic Ac 1 Capsule PO 1 cap DAILY THERESE Administration Radiology Results: ITS Impressions Chest X-Ray 07/30/24 15:11 IMPRESSION: 1. Mild pulmonary edema. 2. Cardiomegaly. Labs Labs: Laboratory Tests 08/01/24 07:35 08/01/24 07:35 Calcium 7.2 L Phosphorus 4.0 Albumin 3.5
[2024-08-01] MEDS: EPOETIN ALFA-EPBX 10,000 UNITS/ML VIAL 10000 UNITS IV PUSH (12:16)
[2024-08-01 15:05] LABS: Glucose Point of Care 176 mg/dl (65-105)
[2024-08-01 17:22] LABS: Glucose Point of Care 296 mg/dl (65-105)
[2024-08-01] MEDS: INSULIN ASPART (*BKC) 100 UNITS/ML SUB-Q ×2 (17:32→22:29)
[2024-08-01] MEDS: CALCIUM CARBONATE (TUMS) 500 MG (200 MG ELEMENTAL) 600 MG PO (17:42)
[2024-08-01] MEDS: INSULIN GLARGINE (*BKC) 100 UNITS/ML 30 UNITS SUB-Q (20:38)
[2024-08-01 22:25] LABS: Glucose Point of Care 300 mg/dl (65-105)
[2024-08-01 22:30] LABS: Glucose Point of Care 281 mg/dl (65-105)
[2024-08-02] VITALS (11 sets, daily range): BP systolic 118–155; BP diastolic 42–53; PULSE 67–96; RESP 17–19; TEMP 36.3–36.6; O2SAT 97–99
[2024-08-02 05:59] LABS: Basophils Percent Auto 0.4 % (0.2-1.2); Eosinophils Absolute Auto 0.1 K/mm3 (0-0.3); Eosinophils Percent Auto 0.7 % (0-4.4); Hematocrit 30.4 % (37.0-47.0); Hemoglobin 8.9 g/dL (12.0-15.0); Immature Granulocyte Absolute 0.06 K/mm3 (0.00-0.031); Immature Granulocyte Percent A 0.8 % (0-0.5); Lymphocytes Absolute Auto 1.02 K/mm3 (0.9-3.2); Lymphocytes Percent Auto 14.3 % (18.3-44.2); Mean Corpuscular HGB Conc 29.3 g/dl (32-36); Mean Corpuscular Hemoglobin 32.2 pg (26-34); Mean Corpuscular Volume 110.1 fl (80-100); Mean Platelet Volume 11.4 fl (7.4-10.4); Monocytes Percent Auto 13.4 % (2.6-8.5); Neutrophils Percent Auto 70.4 % (45.5-73.1); Nucleated Red Blood Cells Perc 0.3 % (0.0-0.2); Platelet Count Result 106 k/mm3 (150-375); Red Blood Count 2.76 M/mm3 (4.2-5.4); Red Cell Distribution Width 17.2 % (11.5-14.5); White Blood Count 7.1 K/mm3 (4.5-10.0)
[2024-08-02 06:21] LABS: Alanine Aminotransferase 15 U/L (6-35); Albumin Level 3.8 g/dL (3.5-5.1); Alkaline Phosphatase 88 U/L (38-126); Anion Gap 7 mmol/L (4-12); Aspartate Amino Transferase 21 U/L (14-36); Blood Urea Nitrogen 25 mg/dL (7-17); Calcium 8.2 mg/dL (8.4-10.2); Carbon Dioxide 32 mmol/L (22-30); Chloride 97 mmol/L (98-107); Estimated Glomerular Filt Rate 14; Glucose 172 mg/dL (65-110); Potassium 4.3 mmol/L (3.4-5.0); Sodium 136 mmol/L (137-145)
[2024-08-02 06:26] LABS: Platelet Estimate Decreased (Adequate)
[2024-08-02 06:27] LABS: Basophilic Stippling 1+; Macrocytosis 2+ (NORMAL); Schistocytes None Seen; Spherocytes 1+
[2024-08-02 08:46] LABS: Glucose Point of Care 160 mg/dl (65-105)
[2024-08-02] MEDS: VITAMIN B CMPLX/VIT C/FOLIC AC 1 CAPSULE 1 CAP PO (09:03)
[2024-08-02] MEDS: guaiFENesin 12 HR 600 MG TABCR PO ×2 (09:03→20:36)
[2024-08-02] MEDS: CALCIUM CARBONATE (TUMS) 500 MG (200 MG ELEMENTAL) 600 MG PO ×3 (09:03→17:05)
[2024-08-02] MEDS: CYANOCOBALAMIN 500 MCG TABLET PO (09:03)
[2024-08-02] MEDS: ERGOCALCIFEROL 50,000 UNITS CAPSULE 50000 UNITS PO (09:04)
[2024-08-02] MEDS: ATORVASTATIN 40 MG TABLET PO (09:04)
[2024-08-02] MEDS: SEVELAMER CARBONATE 800 MG TABLET PO ×3 (09:04→17:05)
[2024-08-02] MEDS: PANTOPRAZOLE 40 MG TABLET PO ×2 (09:04→20:36)
[2024-08-02] MEDS: MICONAZOLE NITRATE 2% CREAM 30 GM TUBE 1 APPLIC TOPICAL (09:05)
--- NOTE | 2024-08-02 11:17 | P.PNIM_ITS ---
Progress Note: A&P Assessment and Plan (1) Acute respiratory failure with hypoxia: Code(s): J96.01 - Acute respiratory failure with hypoxia Status: Acute Assessment and Plan: * Chest x-ray was negative * Currently on 1 L nasal cannula * Likely secondary to RSV infection 08/01 * continue to wean O2 for sat greater than 92% * currently still on 1 L nasal cannula 08/02 * No change to current treatment plan (2) RSV infection: Qualifiers: RSV infection type: unspecified Qualified Code(s): B33.8 - Other specified viral diseases Code(s): B33.8 - Other specified viral diseases Status: Acute Assessment and Plan: * Supportive care * Respiratory panel positive for RSV * Continue Marcos Mercer, Mucinex * Chest x-ray negative 08/01 * no change to current treatment plan (3) ESRD (end stage renal disease) on dialysis: Code(s): N18.6 - End stage renal disease; Z99.2 - Dependence on renal dialysis Status: Chronic Assessment and Plan: * Creatinine 3.17, EGFR 14, potassium 3.8 * Nephrology consulted and following * Normally has dialysis Sunday * Continue to trend 08/01 * creatinine 5.40, EGFR 8, potassium is 3.9 * HD today with 1L removed. She was hypotensive in the beginning and was given a dose of albumin which helped her blood pressure recover during dialysis. * nephrology following * continue to trend 08/02 * Creatinine 3.28, EGFR 14, potassium 4.3 * HD yesterday, tolerated fairly well after 1 dose of albumin, 1 L removed * Nephrology following * Continue to trend (4) Type 2 diabetes mellitus: Qualifiers: Diabetes mellitus complication status: without complication Diabetes mellitus care home insulin use: without care home use Qualified Code(s): E11.9 - Type 2 diabetes mellitus without complications Code(s): E11.9 - Type 2 diabetes mellitus without complications Status: Chronic Assessment and Plan: * Blood sugars ranging 139-284 * Hgb A1C 7.1 * Accu checks AC/HS * Low-dose SSI ordered * Continue Lantus 30 units at bedtime * Will hold Victoza and sitagliptin while inpatient * hypoglycemic protocol in place * Diabetic diet ordered 08/02 * Lantus increased to 35 units at bedtime * Blood sugars ranging 162-296 (5) Atrial fibrillation: Qualifiers: Atrial fibrillation type: unspecified Qualified Code(s): I48.91 - Unspecified atrial fibrillation Code(s): I48.91 - Unspecified atrial fibrillation Status: Chronic Assessment and Plan: * EKG showing AFib rate controlled * Not currently on any home medications??? (6) Anemia: Qualifiers: Anemia type: unspecified type Qualified Code(s): D64.9 - Anemia, unspecified Code(s): D64.9 - Anemia, unspecified Status: Chronic Assessment and Plan: Likely secondary to her end-stage renal disease * Hemoglobin 8.9 (7) Hypertension: Qualifiers: Hypertension type: unspecified Qualified Code(s): I10 - Essential (primary) hypertension Code(s): I10 - Essential (primary) hypertension Status: Chronic Assessment and Plan: * Low blood pressures reported * Continue to hold home medications * Will give Albumin now to help improve B/P, if no improvement she may need to go to the ICU 08/01 * blood pressure is improving, ranging 110/46 to 133/52 * will continue to hold home medications at this time, re-evaluate the morning 08/02 * Continue Coreg 3.125 mg p.o. b.i.d. * Blood pressure ranging 119/54 to 155/53 Time Spent With Patient Time with patient: 25 - 35 minutes Subjective Date/time seen: 08/02/24 11:17 Interval history: Interval history: This is a 79-year-old female who presented to the hospital on 07/30/2024 with complaints of shortness of breath and cough. Workup in the hospital included a chest x-ray which showed mild pulmonary edema and cardiomegaly. Respiratory panel was positive for RSV. Initial labs showed a normal white blood cell count of 10.0, hemoglobin 9.7, sodium 135, potassium 2.9, chloride 90, creatinine 2.01, EGFR 24. EKG showed AFib with a rate of 72. Subjective: Patient denies any new complaints today. She states she is starting to feel a little bit better. Currently on 1L NC. Labs reviewed. Review of Systems Review of Systems: All systems reviewed & are unremarkable except as noted in HPI and below Constitutional: Constitutional: Reports as per HPI and Reports no additional constitutional complaints Eyes: Eyes: Reports as per HPI and Reports no additional eye complaints ENT: Reports system reviewed and no additional complaints, except as documented and Reports as per HPI Cardiovascular: Cardiovascular: Reports as per HPI and Reports no additional cardiovascular complaints Respiratory: Respiratory: Reports as per HPI and Reports no additional respiratory complaints Gastrointestinal: Gastrointestinal: Reports as per HPI and Reports no additional gastrointestinal complaints Genitourinary: Genitourinary: Reports no additional female genitourinary complaints and Reports as per HPI Musculoskeletal: Musculoskeletal: Reports no additional musculoskeletal complaints and Reports as per HPI Integumentary/Breasts: Skin/Breast: Reports system reviewed and no additional complaints, except as docu and Reports as per HPI Neurologic: Reports system reviewed and no additional complaints, except as documented and Reports as per HPI Psychiatric: Psychiatric: Reports no additional psychiatric complaints and Reports as per HPI Exam Narrative: General: In no acute distress Cardiac: Normal S1 and S2. No murmur, gallops or friction rubs, peripheral pulses intact. Respiratory: Rhonchi with mild expiratory wheezing bilaterally---R>L, , on 1L NC Gastrointestinal: soft, non-distended, non-tender, normoactive bowel sounds. :anuric on HD M-W-F Neuro: Alert and oriented x4 Objective Data Vital Signs Vital Signs: Vital Signs - 24 hr 08/01/24 11:30 08/01/24 11:45 08/01/24 12:00 Temperature Pulse Rate 66 68 61 Respiratory Rate Blood Pressure 97/43 L 103/46 L 103/45 L Pulse Oximetry Oxygen Delivery Oxygen Flow Rate 08/01/24 12:05 08/01/24 12:15 08/01/24 12:15 Temperature Pulse Rate 64 66 74 Respiratory Rate Blood Pressure 113/48 L 118/55 L Pulse Oximetry Oxygen Delivery Oxygen Flow Rate 08/01/24 12:30 08/01/24 12:45 08/01/24 13:00 Temperature Pulse Rate 64 67 76 Respiratory Rate Blood Pressure 110/46 L 109/46 L 133/52 L Pulse Oximetry Oxygen Delivery Oxygen Flow Rate 08/01/24 13:30 08/01/24 13:45 08/01/24 13:53 Temperature Pulse Rate 62 69 89 Respiratory Rate Blood Pressure 121/52 L 124/55 L 149/64 H Pulse Oximetry Oxygen Delivery Oxygen Flow Rate 08/01/24 14:12 08/01/24 14:30 08/01/24 15:30 Temperature 98.2 F 97.5 F L Pulse Rate 69 62 Respiratory Rate 18 16 Blood Pressure 136/58 L 130/53 L Pulse Oximetry 99 Oxygen Delivery Nasal Cannula Oxygen Flow Rate 1 08/01/24 16:04 08/01/24 20:00 08/01/24 20:30 Temperature 98.6 F Pulse Rate 73 79 98 Respiratory Rate 18 Blood Pressure 119/54 L Pulse Oximetry 100 Oxygen Delivery Oxygen Flow Rate 08/02/24 00:00 08/02/24 04:00 08/02/24 05:24 Temperature 98 F Pulse Rate 84 80 96 Respiratory Rate 18 Blood Pressure 155/53 H Pulse Oximetry 97 Oxygen Delivery Oxygen Flow Rate Intake/Output Intake/Output: Intake & Output 07/30/24 07/31/24 08/01/24 08/02/24 23:59 23:59 23:59 23:59 Intake Total 1000 490 220 Output Total 1000 Balance 1000 -510 220 Meds/Results Medications: Active Medications Generic Name Dose Route Start Last Admin Trade Name Freq PRN Reason Stop Dose Admin Acetaminophen 650 mg 07/30/24 18:22 Acetaminophen 325 Mg Tablet PO Q6H PRN Mild Pain (1-3) or Fever Albuterol/Ipratropium 3 ml 07/30/24 18:22 Ipratropium 0.5 Mg/Albuterol Sulfate 2.5 Mg Ampul.Neb 3 Ml INHALATION Q6HRT PRN Shortness Of Breath Or Wheezing Atorvastatin Calcium 40 mg 07/31/24 09:00 08/02/24 09:04 Atorvastatin 40 Mg Tablet PO 40 mg DAILY THERESE Administration Benzocaine 1 lozenge 07/30/24 18:22 07/30/24 21:28 Benzocaine/Menthol (*Bkc) 18 Ea Lozenge PO 1 lozenge PRN PRN Administration Sore Throat Benzonatate 100 mg 07/30/24 18:22 07/30/24 21:27 Benzonatate 100 Mg Capsule PO 100 mg TID PRN Administration Cough Calcium Carbonate 600 mg 08/01/24 17:30 08/02/24 09:03 Calcium Carbonate (Tums) 500 Mg (200 Mg Elemental) PO 600 mg TID THERESE Administration Cyanocobalamin 500 mcg 07/31/24 09:00 08/02/24 09:03 Cyanocobalamin 500 Mcg Tablet PO 500 mcg DAILY THERESE Administration Dextrose 12.5 gm 07/30/24 18:29 Dextrose 50% 25 Gm/50 Ml Syringe IV PUSH PRN PRN Hypoglycemia Protocol Dicyclomine HCl 10 mg 07/30/24 21:35 Dicyclomine Hcl 10 Mg Capsule PO BID PRN Abdominal Pain Ergocalciferol 50,000 units 08/02/24 09:00 08/02/24 09:04 Ergocalciferol 50,000 Units Capsule PO 50,000 units WEEKLY THERESE Administration Glucagon 1 mg 07/30/24 18:29 Glucagon For Inj 1 Mg Vial IM PRN PRN Hypoglycemia Protocol Glucose 15 gm 07/30/24 18:29 Glucose Oral Gel 15 Gm Of Glucse In 37.5 Gm Tube PO PRN PRN Hypoglycemia Protocol Guaifenesin 600 mg 07/30/24 21:00 08/02/24 09:03 Guaifenesin 12 Hr 600 Mg Tabcr PO 600 mg Q12HR THERESE Administration Dextrose 1,000 mls @ 100 mls/hr 07/30/24 18:29 Dextrose 5% 1,000 Ml IVPB PRN PRN Hypoglycemia Protocol Albumin Human 50 mls @ 999 mls/hr 08/01/24 07:00 Albutein IVPB 08/31/24 06:59 Q10M PRN HYPOTENSION Insulin Aspart 2 - 5 units 07/31/24 08:00 08/02/24 09:01 Insulin Aspart (*Bkc) 100 Units/Ml SUB-Q Not Given TIDWM [facility] Protocol Insulin Aspart 1 - 2 units 08/01/24 22:20 08/01/24 22:29 Insulin Aspart (*Bkc) 100 Units/Ml SUB-Q 1 units HS THERESE Administration Protocol Insulin Glargine 30 units 08/01/24 21:00 08/01/24 20:38 Insulin Glargine (*Bkc) 100 Units/Ml SUB-Q 30 units HS THERESE Administration Miconazole Nitrate 1 applic 07/31/24 09:00 08/02/24 09:05 Miconazole Nitrate 2% Cream 30 Gm Tube TOPICAL 1 applic Q12HR THERESE Administration * Home Med * 1.8 mg 07/31/24 21:00 Liraglutide [Victoza SUB-Q 08/30/24 20:59 2-Agustín] 0.6 Mg/0.1 HS THERESE Ml (18 Mg/3 Ml) Pen Injector Pantoprazole Sodium 40 mg 07/31/24 09:00 08/02/24 09:04 Pantoprazole 40 Mg Tablet PO 40 mg Q12HR THERESE Administration Sevelamer Carbonate 800 mg 07/31/24 08:00 08/02/24 09:04 Sevelamer Carbonate 800 Mg Tablet PO 800 mg TIDWM THERESE Administration Sitagliptin Phosphate 100 mg 07/31/24 09:00 07/31/24 08:56 Sitagliptin Phosphate 100 Mg Tablet PO 100 mg DAILY THERESE Administration Vitamin B Complex/Folic Acid 1 cap 07/31/24 09:00 08/02/24 09:03 Vitamin B Cmplx/Vit C/Folic Ac 1 Capsule PO 1 cap DAILY THERESE Administration Radiology Results: ITS Impressions Chest X-Ray 07/30/24 15:11 IMPRESSION: 1. Mild pulmonary edema. 2. Cardiomegaly. Labs Labs: Laboratory Results - last 24 hr 08/01/24 08/01/24 08/01/24 15:00 17:19 20:37 WBC RBC Hgb Hct MCV MCH MCHC RDW Plt Count MPV Immature Gran % (Auto) Neut % (Auto) Lymph % (Auto) [place] % (Auto) Eos % (Auto) Baso % (Auto) Lymph # (Auto) [place] # (Auto) Eos # (Auto) Baso # (Auto) Abs Immat Gran (auto) Absolute Neuts (auto) Absolute Nucleated RBC Nucleated RBC % Platelet Estimate Basophilic Stippling Macrocytosis Spherocytes Schistocytes Sodium Potassium Chloride Carbon Dioxide Anion Gap BUN Creatinine Estim Creat Clear Calc Estimated GFR Glucose POC Capillary Glucose 176 H 296 H 300 H Calcium Total Bilirubin AST ALT Alkaline Phosphatase Total Protein Albumin 08/01/24 08/02/24 08/02/24 22:28 05:44 08:43 WBC 7.1 RBC 2.76 L Hgb 8.9 L Hct 30.4 L MCV 110.1 H MCH 32.2 MCHC 29.3 L RDW 17.2 H Plt Count 106 L MPV 11.4 H Immature Gran % (Auto) 0.8 H Neut % (Auto) 70.4 Lymph % (Auto) 14.3 L [place] % (Auto) 13.4 H Eos % (Auto) 0.7 Baso % (Auto) 0.4 Lymph # (Auto) 1.02 [place] # (Auto) 1.0 H Eos # (Auto) 0.1 Baso # (Auto) 0.0 Abs Immat Gran (auto) 0.06 H Absolute Neuts (auto) 5.0 Absolute Nucleated RBC 0.020 H Nucleated RBC % 0.3 H Platelet Estimate Decreased Basophilic Stippling 1+ Macrocytosis 2+ Spherocytes 1+ Schistocytes None seen Sodium 136 L Potassium 4.3 Chloride 97 L Carbon Dioxide 32 H Anion Gap 7 BUN 25 H D Creatinine 3.28 H Estim Creat Clear Calc Not Reportable Estimated GFR 14 L Glucose 172 H POC Capillary Glucose 281 H 160 H Calcium 8.2 L Total Bilirubin 1.0 AST 21 ALT 15 Alkaline Phosphatase 88 Total Protein 6.0 L Albumin 3.8 Quality VTE Prophylaxis VTE prophylaxis: mechanical ordered
[2024-08-02 11:54] LABS: Glucose Point of Care 241 mg/dl (65-105)
--- NOTE | 2024-08-02 12:22 | P.PNNP_ITS ---
Progress Note: A&P Assessment and Plan (1) End stage renal disease: Code(s): N18.6 - End stage renal disease Status: Chronic Assessment and Plan: * HD tomorrow * continue M/W/F dialysis schedule while hospitalized * follow electrolytes, volume status, and clearance (2) Hypoxia: Code(s): R09.02 - Hypoxemia Status: Acute Assessment and Plan: * as noted by EMS * 80% on room air * improved with 2L oxygen by nasal cannula * presumably due to mild pulmonary edema and RSV (as noted on admission) * no evidence of pneumonia by CXR * wean supplemental oxygen as tolerated (3) RSV infection: Qualifiers: RSV infection type: unspecified Qualified Code(s): B33.8 - Other specified viral diseases Code(s): B33.8 - Other specified viral diseases Status: Acute Assessment and Plan: * tested positive for RSV on 07/30 in ER * reported onset of symptoms on 07/28 * CXR negative for pneumonia * continues supportive care: * Mucinex * Tessalon Perles p.r.n. * DuoNeb as needed * Tylenol (4) Atrial fibrillation: Qualifiers: Atrial fibrillation type: unspecified Qualified Code(s): I48.91 - Unspecified atrial fibrillation Code(s): I48.91 - Unspecified atrial fibrillation Status: Chronic Assessment and Plan: * paroxysmal * rate controlled * not on anticoagulation (due to hx of GI bleeding versus fall risk?) (5) Anemia: Qualifiers: Anemia type: unspecified type Qualified Code(s): D64.9 - Anemia, unspecified Code(s): D64.9 - Anemia, unspecified Status: Chronic Assessment and Plan: * related to ESRD * Epogen with HD * follow trend of H/H (6) Hypertension: Qualifiers: Hypertension type: unspecified Qualified Code(s): I10 - Essential (primary) hypertension Code(s): I10 - Essential (primary) hypertension Status: Chronic Assessment and Plan: * reasonable control * follow hemodynamics (7) Type 2 diabetes mellitus: Qualifiers: Diabetes mellitus halfway insulin use: without rn long term care use Diabetes mellitus complication status: without complication Qualified Code(s): E11.9 - Type 2 diabetes mellitus without complications Code(s): E11.9 - Type 2 diabetes mellitus without complications Status: Chronic Assessment and Plan: * follow accuchecks * glycemic control per hospitalists Will continue to follow. L Subjective Date/time seen: 08/02/24 12:22 Interval history: Follow-up for end stage renal disease on hemodialysis. Tolerated dialysis treatment yesterday without any issues or problems; breathing/respiratory status seems relatively stable; complained of bilateral feet pain earlier this morning; no apparent distress. Exam 2 Narrative: General: elderly female in NAD Heart: normal S1 and S2; no rub Lungs: coarse breath sounds Abdomen: soft, nontender, nondistended, positive bowel sounds Extremities: no cyanosis or clubbing; no edema Skin: warm and intact Objective Data Vital Signs Vital Signs: Vital Signs Temp Pulse Resp BP Pulse Ox O2 Del Method O2 Flow Rate 08/02/24 12:20 97.3 F L 79 17 118/42 L 99 08/02/24 09:00 97 Nasal Cannula 1 08/02/24 08:00 71 08/02/24 05:24 98 F 96 18 155/53 H 97 08/02/24 04:00 80 08/02/24 00:00 84 08/01/24 20:30 98.6 F 98 18 119/54 L 100 08/01/24 20:00 79 08/01/24 16:04 73 Intake/Output Intake/Output: Intake & Output 07/30/24 07/31/24 08/01/24 08/02/24 23:59 23:59 23:59 23:59 Intake Total 1000 490 460 Output Total 1000 Balance 1000 -510 460 Meds/Results Medications: Active Medications Generic Name Dose Route Start Last Admin Trade Name Freq PRN Reason Stop Dose Admin Acetaminophen 650 mg 07/30/24 18:22 Acetaminophen 325 Mg Tablet PO Q6H PRN Mild Pain (1-3) or Fever Albuterol/Ipratropium 3 ml 07/30/24 18:22 Ipratropium 0.5 Mg/Albuterol Sulfate 2.5 Mg Ampul.Neb 3 Ml INHALATION Q6HRT PRN Shortness Of Breath Or Wheezing Atorvastatin Calcium 40 mg 07/31/24 09:00 08/02/24 09:04 Atorvastatin 40 Mg Tablet PO 40 mg DAILY THERESE Administration Benzocaine 1 lozenge 07/30/24 18:22 07/30/24 21:28 Benzocaine/Menthol (*Bkc) 18 Ea Lozenge PO 1 lozenge PRN PRN Administration Sore Throat Benzonatate 100 mg 07/30/24 18:22 07/30/24 21:27 Benzonatate 100 Mg Capsule PO 100 mg TID PRN Administration Cough Calcium Carbonate 600 mg 08/01/24 17:30 08/02/24 12:26 Calcium Carbonate (Tums) 500 Mg (200 Mg Elemental) PO 600 mg TID THERESE Administration Carvedilol 3.125 mg 08/02/24 21:00 Carvedilol 3.125 Mg Tablet PO Q12HR THERESE Cyanocobalamin 500 mcg 07/31/24 09:00 08/02/24 09:03 Cyanocobalamin 500 Mcg Tablet PO 500 mcg DAILY THERESE Administration Dextrose 12.5 gm 07/30/24 18:29 Dextrose 50% 25 Gm/50 Ml Syringe IV PUSH PRN PRN Hypoglycemia Protocol Dicyclomine HCl 10 mg 07/30/24 21:35 Dicyclomine Hcl 10 Mg Capsule PO BID PRN Abdominal Pain Ergocalciferol 50,000 units 08/02/24 09:00 08/02/24 09:04 Ergocalciferol 50,000 Units Capsule PO 50,000 units WEEKLY THERESE Administration Glucagon 1 mg 07/30/24 18:29 Glucagon For Inj 1 Mg Vial IM PRN PRN Hypoglycemia Protocol Glucose 15 gm 07/30/24 18:29 Glucose Oral Gel 15 Gm Of Glucse In 37.5 Gm Tube PO PRN PRN Hypoglycemia Protocol Guaifenesin 600 mg 07/30/24 21:00 08/02/24 09:03 Guaifenesin 12 Hr 600 Mg Tabcr PO 600 mg Q12HR THERESE Administration Dextrose 1,000 mls @ 100 mls/hr 07/30/24 18:29 Dextrose 5% 1,000 Ml IVPB PRN PRN Hypoglycemia Protocol Albumin Human 50 mls @ 999 mls/hr 08/01/24 07:00 Albutein IVPB 08/31/24 06:59 Q10M PRN HYPOTENSION Insulin Aspart 2 - 5 units 07/31/24 08:00 08/02/24 12:27 Insulin Aspart (*Bkc) 100 Units/Ml SUB-Q 2 units TIDWM THERESE Administration Protocol Insulin Aspart 1 - 2 units 08/01/24 22:20 08/01/24 22:29 Insulin Aspart (*Bkc) 100 Units/Ml SUB-Q 1 units HS THERESE Administration Protocol Insulin Glargine 35 units 08/02/24 21:00 Insulin Glargine (*Bkc) 100 Units/Ml SUB-Q HS [facility] Miconazole Nitrate 1 applic 07/31/24 09:00 08/02/24 09:05 Miconazole Nitrate 2% Cream 30 Gm Tube TOPICAL 1 applic Q12HR THERESE Administration * Home Med * 1.8 mg 07/31/24 21:00 Liraglutide [Victoza SUB-Q 08/30/24 20:59 2-Agustín] 0.6 Mg/0.1 HS [facility] Ml (18 Mg/3 Ml) Pen Injector Pantoprazole Sodium 40 mg 07/31/24 09:00 08/02/24 09:04 Pantoprazole 40 Mg Tablet PO 40 mg Q12HR [facility] Administration Sevelamer Carbonate 800 mg 07/31/24 08:00 08/02/24 12:26 Sevelamer Carbonate 800 Mg Tablet PO 800 mg TIDWM THERESE Administration Sitagliptin Phosphate 100 mg 07/31/24 09:00 07/31/24 08:56 Sitagliptin Phosphate 100 Mg Tablet PO 100 mg DAILY [facility] Administration Vitamin B Complex/Folic Acid 1 cap 07/31/24 09:00 08/02/24 09:03 Vitamin B Cmplx/Vit C/Folic Ac 1 Capsule PO 1 cap DAILY [facility] Administration Radiology Results: ITS Impressions Chest X-Ray 07/30/24 15:11 IMPRESSION: 1. Mild pulmonary edema. 2. Cardiomegaly. Labs Labs: Laboratory Tests 08/02/24 05:44 08/02/24 05:44 Calcium 8.2 L Total Bilirubin 1.0 AST 21 ALT 15 Alkaline Phosphatase 88 Total Protein 6.0 L Albumin 3.8
[2024-08-02] MEDS: INSULIN ASPART (*BKC) 100 UNITS/ML SUB-Q ×3 (12:27→20:37)
[2024-08-02 17:32] LABS: Glucose Point of Care 263 mg/dl (65-105)
[2024-08-02] MEDS: carvediloL 3.125 MG TABLET PO (20:36)
[2024-08-02] MEDS: INSULIN GLARGINE (*BKC) 100 UNITS/ML 35 UNITS SUB-Q (20:37)
[2024-08-02 20:54] LABS: Glucose Point of Care 215 mg/dl (65-105)
[2024-08-03] VITALS (11 sets, daily range): BP systolic 113–130; BP diastolic 40–49; PULSE 64–83; RESP 18–19; TEMP 36.2–36.6; O2SAT 91–100
[2024-08-03 06:26] LABS: Basophils Percent Auto 0.2 % (0.2-1.2); Eosinophils Absolute Auto 0.1 K/mm3 (0-0.3); Eosinophils Percent Auto 0.9 % (0-4.4); Hematocrit 30.8 % (37.0-47.0); Hemoglobin 9.1 g/dL (12.0-15.0); Immature Granulocyte Absolute 0.08 K/mm3 (0.00-0.031); Immature Granulocyte Percent A 0.9 % (0-0.5); Lymphocytes Absolute Auto 1.15 K/mm3 (0.9-3.2); Lymphocytes Percent Auto 12.5 % (18.3-44.2); Mean Corpuscular HGB Conc 29.5 g/dl (32-36); Mean Corpuscular Hemoglobin 32.2 pg (26-34); Mean Corpuscular Volume 108.8 fl (80-100); Mean Platelet Volume 12.1 fl (7.4-10.4); Monocytes Absolute Auto 1.1 K/mm3 (0.1-0.6); Monocytes Percent Auto 11.8 % (2.6-8.5); Neutrophils Absolute Auto 6.8 K/mm3 (1.3-6.7); Neutrophils Percent Auto 73.7 % (45.5-73.1); Nucleated Red Blood Cells Perc 0.2 % (0.0-0.2); Platelet Count Result 120 k/mm3 (150-375); Red Blood Count 2.83 M/mm3 (4.2-5.4); Red Cell Distribution Width 17.2 % (11.5-14.5); White Blood Count 9.2 K/mm3 (4.5-10.0)
[2024-08-03 06:52] LABS: Alanine Aminotransferase 14 U/L (6-35); Albumin Level 3.6 g/dL (3.5-5.1); Alkaline Phosphatase 105 U/L (38-126); Anion Gap 9 mmol/L (4-12); Aspartate Amino Transferase 16 U/L (14-36); Bilirubin,Total 1.2 mg/dL (0.2-1.3); Blood Urea Nitrogen 40 mg/dL (7-17); Calcium 8.8 mg/dL (8.4-10.2); Carbon Dioxide 29 mmol/L (22-30); Chloride 96 mmol/L (98-107); Estimated Glomerular Filt Rate 8; Glucose 147 mg/dL (65-110); Potassium 4.8 mmol/L (3.4-5.0); Sodium 134 mmol/L (137-145)
[2024-08-03 07:30] LABS: Anisocytosis 1+; Basophilic Stippling 1+; Macrocytosis 1+ (NORMAL); Ovalocytes 1+; Platelet Estimate Decreased (Adequate); Schistocytes None Seen
[2024-08-03] MEDS: CALCIUM CARBONATE (TUMS) 500 MG (200 MG ELEMENTAL) 600 MG PO ×3 (08:27→16:43)
[2024-08-03] MEDS: CYANOCOBALAMIN 500 MCG TABLET PO (08:27)
[2024-08-03] MEDS: carvediloL 3.125 MG TABLET PO ×2 (08:27→21:32)
[2024-08-03] MEDS: SEVELAMER CARBONATE 800 MG TABLET PO ×3 (08:28→16:43)
[2024-08-03] MEDS: ATORVASTATIN 40 MG TABLET PO (08:28)
[2024-08-03] MEDS: guaiFENesin 12 HR 600 MG TABCR PO ×2 (08:28→21:32)
[2024-08-03] MEDS: PANTOPRAZOLE 40 MG TABLET PO ×2 (08:28→21:32)
[2024-08-03] MEDS: VITAMIN B CMPLX/VIT C/FOLIC AC 1 CAPSULE 1 CAP PO (08:29)
[2024-08-03] MEDS: ACETAMINOPHEN 325 MG TABLET 650 MG PO ×2 (08:29→16:44)
[2024-08-03] MEDS: MICONAZOLE NITRATE 2% CREAM 30 GM TUBE 1 APPLIC TOPICAL (08:31)
[2024-08-03 08:49] LABS: Glucose Point of Care 143 mg/dl (65-105)
--- NOTE | 2024-08-03 11:50 | P.PNIM_ITS ---
Progress Note: A&P Assessment and Plan (1) Acute respiratory failure with hypoxia: Code(s): J96.01 - Acute respiratory failure with hypoxia Status: Acute Assessment and Plan: * Chest x-ray was negative * Currently on 1 L nasal cannula * Likely secondary to RSV infection 08/01 * continue to wean O2 for sat greater than 92% * currently still on 1 L nasal cannula 08/02 * No change to current treatment plan (2) RSV infection: Qualifiers: RSV infection type: unspecified Qualified Code(s): B33.8 - Other specified viral diseases Code(s): B33.8 - Other specified viral diseases Status: Acute Assessment and Plan: * Respiratory panel positive for RSV * Continue DuoNebs, Tessalon Perles, Mucinex * Chest x-ray negative 08/01 Prednisone 40mg daily x 5days (3) ESRD (end stage renal disease) on dialysis: Code(s): N18.6 - End stage renal disease; Z99.2 - Dependence on renal dialysis Status: Chronic Assessment and Plan: continue dialysis Nephrology following (4) Type 2 diabetes mellitus: Qualifiers: Diabetes mellitus nursing home insulin use: without nursing home use Diabetes mellitus complication status: without complication Qualified Code(s): E11.9 - Type 2 diabetes mellitus without complications Code(s): E11.9 - Type 2 diabetes mellitus without complications Status: Chronic Assessment and Plan: * Blood sugars ranging 139-284 * Hgb A1C 7.1 * Accu checks AC/HS * Low-dose SSI ordered * Continue Lantus 35 units at bedtime * Will hold Victoza and sitagliptin while inpatient * hypoglycemic protocol in place * Diabetic diet ordered * monitor (5) Atrial fibrillation: Qualifiers: Atrial fibrillation type: unspecified Qualified Code(s): I48.91 - Unspecified atrial fibrillation Code(s): I48.91 - Unspecified atrial fibrillation Status: Chronic Assessment and Plan: * EKG showing AFib rate controlled * Not currently on any home medications??? * investigate (6) Anemia: Qualifiers: Anemia type: unspecified type Qualified Code(s): D64.9 - Anemia, unspecified Code(s): D64.9 - Anemia, unspecified Status: Chronic Assessment and Plan: Likely secondary to her end-stage renal disease * Hemoglobin 9.1 (7) Hypertension: Qualifiers: Hypertension type: unspecified Qualified Code(s): I10 - Essential (primary) hypertension Code(s): I10 - Essential (primary) hypertension Status: Chronic Assessment and Plan: * Low blood pressures reported on Coreg monitor and adjust Plan Diabetic neuropathy Started on Venlafaxine monitor DVT prophylaxis on Sq Heparin Subjective Date/time seen: 08/03/24 11:51 Interval history: Complained of bilateral foot pain thsi morning started on Venlafaxine for diabetic neuropathy Review of Systems Review of Systems: All systems reviewed & are unremarkable except as noted in HPI and below Constitutional: Constitutional: Reports as per HPI and Reports no additional constitutional complaints Eyes: Eyes: Reports as per HPI and Reports no additional eye complaints ENT: Reports system reviewed and no additional complaints, except as documented and Reports as per HPI Cardiovascular: Cardiovascular: Reports as per HPI and Reports no additional cardiovascular complaints Respiratory: Respiratory: Reports as per HPI and Reports no additional respiratory complaints Gastrointestinal: Gastrointestinal: Reports as per HPI and Reports no additional gastrointestinal complaints Genitourinary: Genitourinary: Reports no additional female genitourinary complaints and Reports as per HPI Musculoskeletal: Musculoskeletal: Reports no additional musculoskeletal complaints and Reports as per HPI Integumentary/Breasts: Skin/Breast: Reports system reviewed and no additional complaints, except as docu and Reports as per HPI Neurologic: Reports system reviewed and no additional complaints, except as documented and Reports as per HPI Psychiatric: Psychiatric: Reports no additional psychiatric complaints and Reports as per HPI Exam Narrative: General: In no acute distress Cardiac: Normal S1 and S2. No murmur, gallops or friction rubs, peripheral pulses intact. Respiratory: Rhonchi with mild expiratory wheezing bilaterally---R>L, , on 1L NC Gastrointestinal: soft, non-distended, non-tender, normoactive bowel sounds. :anuric on HD M-W-F Neuro: Alert and oriented x4 Const: General: comfortable and no acute distress Other: Elderly, female, ill-appearing HENMT: Face/Nose/Sinus: Normal nares present Mouth: Yes moist mucous membranes Eyes: General: appearance normal, both eyes and all related structures Sclera: sclerae normal Pupils: Equal, round and reactive pupils present EOM: EOMs intact bilaterally Resp: Other: Bibasilar crackles, + tachypnea without increased work of breathing Cardio: Rate: regular rate Rhythm: regular rhythm Other: S1-S2 present without murmur, rub, ectopy GI: Other: Abdomen soft, nondistended, nontender. Skin: General skin exam: normal color and no rashes or lesions noted Wounds: no wounds Neuro: Cranial nerves: Yes Equal, round and reactive pupils present Speech: normal speech Motor exam (neuro): 5/5 motor strength present throughout Sensory Exam: normal sensation Other: S1-S2 present without murmur, rub, ectopy Extrem: General: normal exam except as noted Other: +thrill and bruit to RUE fistula. old fistula to LUE. Psych: Mental Status: mental status grossly normal Affect: normal affect Other: Good insight and judgment, pleasant Objective Data Vital Signs Vital Signs: Vital Signs - 24 hr 08/02/24 12:00 08/02/24 14:24 08/02/24 16:00 Temperature 97.3 F L Pulse Rate 67 79 74 Respiratory Rate 17 Blood Pressure 118/42 L Pulse Oximetry 99 Oxygen Delivery Oxygen Flow Rate 08/02/24 20:00 08/02/24 20:36 08/02/24 21:53 Temperature 97.6 F Pulse Rate 78 86 79 Respiratory Rate 19 Blood Pressure 127/42 L Pulse Oximetry 99 Oxygen Delivery Oxygen Flow Rate 08/03/24 00:00 08/03/24 04:00 08/03/24 06:00 Temperature 98 F Pulse Rate 80 80 83 Respiratory Rate 19 Blood Pressure 130/49 L Pulse Oximetry 99 Oxygen Delivery Oxygen Flow Rate 08/03/24 08:27 08/03/24 08:30 08/03/24 08:30 Temperature Pulse Rate 73 76 Respiratory Rate Blood Pressure Pulse Oximetry 91 Oxygen Delivery Nasal Cannula Oxygen Flow Rate 1 Intake/Output Intake/Output: Intake & Output 07/31/24 08/01/24 08/02/24 08/03/24 23:59 23:59 23:59 23:59 Intake Total 1000 490 900 245 Output Total 1000 150 Balance 1000 -510 900 95 Meds/Results Medications: Active Medications Generic Name Dose Route Start Last Admin Trade Name Freq PRN Reason Stop Dose Admin Acetaminophen 650 mg 07/30/24 18:22 08/03/24 08:29 Acetaminophen 325 Mg Tablet PO 650 mg Q6H PRN Administration Mild Pain (1-3) or Fever Albuterol/Ipratropium 3 ml 07/30/24 18:22 Ipratropium 0.5 Mg/Albuterol Sulfate 2.5 Mg Ampul.Neb 3 Ml INHALATION Q6HRT PRN Shortness Of Breath Or Wheezing Atorvastatin Calcium 40 mg 07/31/24 09:00 08/03/24 08:28 Atorvastatin 40 Mg Tablet PO 40 mg DAILY THERESE Administration Benzocaine 1 lozenge 07/30/24 18:22 07/30/24 21:28 Benzocaine/Menthol (*Bkc) 18 Ea Lozenge PO 1 lozenge PRN PRN Administration Sore Throat Benzonatate 100 mg 07/30/24 18:22 07/30/24 21:27 Benzonatate 100 Mg Capsule PO 100 mg TID PRN Administration Cough Calcium Carbonate 600 mg 08/01/24 17:30 08/03/24 08:27 Calcium Carbonate (Tums) 500 Mg (200 Mg Elemental) PO 600 mg TID THERESE Administration Carvedilol 3.125 mg 08/02/24 21:00 08/03/24 08:27 Carvedilol 3.125 Mg Tablet PO 3.125 mg Q12HR THERESE Administration Cyanocobalamin 500 mcg 07/31/24 09:00 08/03/24 08:27 Cyanocobalamin 500 Mcg Tablet PO 500 mcg DAILY THERESE Administration Dextrose 12.5 gm 07/30/24 18:29 Dextrose 50% 25 Gm/50 Ml Syringe IV PUSH PRN PRN Hypoglycemia Protocol Dicyclomine HCl 10 mg 07/30/24 21:35 Dicyclomine Hcl 10 Mg Capsule PO BID PRN Abdominal Pain Ergocalciferol 50,000 units 08/02/24 09:00 08/02/24 09:04 Ergocalciferol 50,000 Units Capsule PO 50,000 units WEEKLY THERESE Administration Glucagon 1 mg 07/30/24 18:29 Glucagon For Inj 1 Mg Vial IM PRN PRN Hypoglycemia Protocol Glucose 15 gm 07/30/24 18:29 Glucose Oral Gel 15 Gm Of Glucse In 37.5 Gm Tube PO PRN PRN Hypoglycemia Protocol Guaifenesin 600 mg 07/30/24 21:00 08/03/24 08:28 Guaifenesin 12 Hr 600 Mg Tabcr PO 600 mg Q12HR THERESE Administration Dextrose 1,000 mls @ 100 mls/hr 07/30/24 18:29 Dextrose 5% 1,000 Ml IVPB PRN PRN Hypoglycemia Protocol Albumin Human 50 mls @ 999 mls/hr 08/01/24 07:00 Albutein IVPB 08/31/24 06:59 Q10M PRN HYPOTENSION Insulin Aspart 2 - 5 units 07/31/24 08:00 08/03/24 10:25 Insulin Aspart (*Bkc) 100 Units/Ml SUB-Q Not Given TIDWM THERESE Protocol Insulin Aspart 1 - 2 units 08/01/24 22:20 08/02/24 20:37 Insulin Aspart (*Bkc) 100 Units/Ml SUB-Q 1 units HS [facility] Administration Protocol Insulin Glargine 35 units 08/02/24 21:00 08/02/24 20:37 Insulin Glargine (*Bkc) 100 Units/Ml SUB-Q 35 units HS [facility] Administration Miconazole Nitrate 1 applic 07/31/24 09:00 08/03/24 08:31 Miconazole Nitrate 2% Cream 30 Gm Tube TOPICAL 1 applic Q12HR THERESE Administration * Home Med * 1.8 mg 07/31/24 21:00 Liraglutide [Victoza SUB-Q 08/30/24 20:59 2-Agustín] 0.6 Mg/0.1 HS [facility] Ml (18 Mg/3 Ml) Pen Injector Pantoprazole Sodium 40 mg 07/31/24 09:00 08/03/24 08:28 Pantoprazole 40 Mg Tablet PO 40 mg Q12HR THERESE Administration Sevelamer Carbonate 800 mg 07/31/24 08:00 08/03/24 08:28 Sevelamer Carbonate 800 Mg Tablet PO 800 mg TIDWM THERESE Administration Sitagliptin Phosphate 100 mg 07/31/24 09:00 07/31/24 08:56 Sitagliptin Phosphate 100 Mg Tablet PO 100 mg DAILY THERESE Administration Vitamin B Complex/Folic Acid 1 cap 07/31/24 09:00 08/03/24 08:29 Vitamin B Cmplx/Vit C/Folic Ac 1 Capsule PO 1 cap DAILY THERESE Administration Radiology Results: ITS Impressions Chest X-Ray 07/30/24 15:11 IMPRESSION: 1. Mild pulmonary edema. 2. Cardiomegaly. Labs Labs: Laboratory Results - last 24 hr 08/02/24 08/02/24 08/02/24 11:49 17:30 20:35 WBC RBC Hgb Hct MCV MCH MCHC RDW Plt Count MPV Immature Gran % (Auto) Neut % (Auto) Lymph % (Auto) Harmon % (Auto) Eos % (Auto) Baso % (Auto) Lymph # (Auto) Harmon # (Auto) Eos # (Auto) Baso # (Auto) Abs Immat Gran (auto) Absolute Neuts (auto) Absolute Nucleated RBC Nucleated RBC % Platelet Estimate Basophilic Stippling Anisocytosis Macrocytosis Ovalocytes Schistocytes Sodium Potassium Chloride Carbon Dioxide Anion Gap BUN Creatinine Estim Creat Clear Calc Estimated GFR Glucose POC Capillary Glucose 241 H 263 H 215 H Calcium Total Bilirubin AST ALT Alkaline Phosphatase Total Protein Albumin 08/03/24 08/03/24 06:04 08:45 WBC 9.2 RBC 2.83 L Hgb 9.1 L Hct 30.8 L MCV 108.8 H MCH 32.2 MCHC 29.5 L RDW 17.2 H Plt Count 120 L MPV 12.1 H Immature Gran % (Auto) 0.9 H Neut % (Auto) 73.7 H Lymph % (Auto) 12.5 L Harmon % (Auto) 11.8 H Eos % (Auto) 0.9 Baso % (Auto) 0.2 Lymph # (Auto) 1.15 Harmon # (Auto) 1.1 H Eos # (Auto) 0.1 Baso # (Auto) 0.0 Abs Immat Gran (auto) 0.08 H Absolute Neuts (auto) 6.8 H Absolute Nucleated RBC 0.020 H Nucleated RBC % 0.2 Platelet Estimate Decreased Basophilic Stippling 1+ Anisocytosis 1+ Macrocytosis 1+ Ovalocytes 1+ Schistocytes None seen Sodium 134 L Potassium 4.8 Chloride 96 L Carbon Dioxide 29 Anion Gap 9 BUN 40 H D Creatinine 5.27 H Estim Creat Clear Calc Not Reportable Estimated GFR 8 L Glucose 147 H POC Capillary Glucose 143 H Calcium 8.8 Total Bilirubin 1.2 AST 16 ALT 14 Alkaline Phosphatase 105 Total Protein 6.0 L Albumin 3.6 Quality VTE Prophylaxis VTE prophylaxis: mechanical ordered
[2024-08-03 12:04] LABS: Glucose Point of Care 174 mg/dl (65-105)
[2024-08-03] MEDS: VENLAFAXINE HCL XR 37.5 MG CAP PO (12:09)
[2024-08-03] MEDS: predniSONE 20 MG TABLET 40 MG PO (12:09)
--- NOTE | 2024-08-03 13:17 | P.PNNP_ITS ---
Progress Note: A&P Assessment and Plan (1) End stage renal disease: Code(s): N18.6 - End stage renal disease Status: Chronic Assessment and Plan: * HD tomorrow * continue M/W/F dialysis schedule while hospitalized * follow electrolytes, volume status, and clearance (2) Hypoxia: Code(s): R09.02 - Hypoxemia Status: Acute Assessment and Plan: * as noted by EMS * 80% on room air * improved with 2L oxygen by nasal cannula * presumably due to mild pulmonary edema and RSV (as noted on admission) * no evidence of pneumonia by CXR * wean supplemental oxygen as tolerated (3) RSV infection: Qualifiers: RSV infection type: unspecified Qualified Code(s): B33.8 - Other specified viral diseases Code(s): B33.8 - Other specified viral diseases Status: Acute Assessment and Plan: * tested positive for RSV on 07/30 in ER * reported onset of symptoms on 07/28 * CXR negative for pneumonia * continues supportive care: * Mucinex * Tessalon Perles p.r.n. * DuoNeb as needed * Tylenol (4) Atrial fibrillation: Qualifiers: Atrial fibrillation type: unspecified Qualified Code(s): I48.91 - Unspecified atrial fibrillation Code(s): I48.91 - Unspecified atrial fibrillation Status: Chronic Assessment and Plan: * paroxysmal * rate controlled * not on anticoagulation (due to hx of GI bleeding versus fall risk?) (5) Anemia: Qualifiers: Anemia type: unspecified type Qualified Code(s): D64.9 - Anemia, unspecified Code(s): D64.9 - Anemia, unspecified Status: Chronic Assessment and Plan: * related to ESRD * Epogen with HD * follow trend of H/H (6) Hypertension: Qualifiers: Hypertension type: unspecified Qualified Code(s): I10 - Essential (primary) hypertension Code(s): I10 - Essential (primary) hypertension Status: Chronic Assessment and Plan: * reasonable control * follow hemodynamics (7) Type 2 diabetes mellitus: Qualifiers: Diabetes mellitus shelter insulin use: without long goods drier use Diabetes mellitus complication status: without complication Qualified Code(s): E11.9 - Type 2 diabetes mellitus without complications Code(s): E11.9 - Type 2 diabetes mellitus without complications Status: Chronic Assessment and Plan: * follow accuchecks * glycemic control per hospitalists Will continue to follow. L Subjective Date/time seen: 08/03/24 13:17 Interval history: Follow-up for end stage renal disease on hemodialysis. No apparent distress noted at the time of my visit; still requiring supplemental oxygen (but weaned down to 1L) when seen; no other acute issues/complaints voiced; no events overnight or earlier this morning. Exam 2 Narrative: General: elderly female in NAD Heart: normal S1 and S2; no rub Lungs: coarse breath sounds Abdomen: soft, nontender, nondistended, positive bowel sounds Extremities: no cyanosis or clubbing; no edema Skin: no rash Objective Data Vital Signs Vital Signs: Vital Signs Temp Pulse Resp BP Pulse Ox O2 Del Method O2 Flow Rate 08/03/24 13:02 97.4 F L 65 18 113/40 L 100 08/03/24 08:30 76 08/03/24 08:30 91 Nasal Cannula 1 08/03/24 08:27 73 08/03/24 06:00 98 F 83 19 130/49 L 99 08/03/24 04:00 80 08/03/24 00:00 80 08/02/24 21:53 97.6 F 79 19 127/42 L 99 08/02/24 20:36 86 08/02/24 20:00 78 Intake/Output Intake/Output: Intake & Output 07/31/24 08/01/24 08/02/24 08/03/24 23:59 23:59 23:59 23:59 Intake Total 1000 490 900 715 Output Total 1000 150 Balance 1000 -510 900 565 Meds/Results Medications: Active Medications Generic Name Dose Route Start Last Admin Trade Name Johnathonq PRN Reason Stop Dose Admin Acetaminophen 650 mg 07/30/24 18:22 08/03/24 16:44 Acetaminophen 325 Mg Tablet PO 650 mg Q6H PRN Administration Mild Pain (1-3) or Fever Albuterol/Ipratropium 3 ml 07/30/24 18:22 08/03/24 15:52 Ipratropium 0.5 Mg/Albuterol Sulfate 2.5 Mg Ampul.Neb 3 Ml INHALATION 3 ml Q6HRT PRN Administration Shortness Of Breath Or Wheezing Atorvastatin Calcium 40 mg 07/31/24 09:00 08/03/24 08:28 Atorvastatin 40 Mg Tablet PO 40 mg DAILY THERESE Administration Benzocaine 1 lozenge 07/30/24 18:22 07/30/24 21:28 Benzocaine/Menthol (*Bkc) 18 Ea Lozenge PO 1 lozenge PRN PRN Administration Sore Throat Benzonatate 100 mg 07/30/24 18:22 07/30/24 21:27 Benzonatate 100 Mg Capsule PO 100 mg TID PRN Administration Cough Calcium Carbonate 600 mg 08/01/24 17:30 08/03/24 16:43 Calcium Carbonate (Tums) 500 Mg (200 Mg Elemental) PO 600 mg TID THERESE Administration Carvedilol 3.125 mg 08/02/24 21:00 08/03/24 08:27 Carvedilol 3.125 Mg Tablet PO 3.125 mg Q12HR THERESE Administration Cyanocobalamin 500 mcg 07/31/24 09:00 08/03/24 08:27 Cyanocobalamin 500 Mcg Tablet PO 500 mcg DAILY THERESE Administration Dextrose 12.5 gm 07/30/24 18:29 Dextrose 50% 25 Gm/50 Ml Syringe IV PUSH PRN PRN Hypoglycemia Protocol Dicyclomine HCl 10 mg 07/30/24 21:35 Dicyclomine Hcl 10 Mg Capsule PO BID PRN Abdominal Pain Ergocalciferol 50,000 units 08/02/24 09:00 08/02/24 09:04 Ergocalciferol 50,000 Units Capsule PO 50,000 units WEEKLY THERESE Administration Glucagon 1 mg 07/30/24 18:29 Glucagon For Inj 1 Mg Vial IM PRN PRN Hypoglycemia Protocol Glucose 15 gm 07/30/24 18:29 Glucose Oral Gel 15 Gm Of Glucse In 37.5 Gm Tube PO PRN PRN Hypoglycemia Protocol Guaifenesin 600 mg 07/30/24 21:00 08/03/24 08:28 Guaifenesin 12 Hr 600 Mg Tabcr PO 600 mg Q12HR THERESE Administration Heparin Sodium (Porcine) 5,000 units 08/03/24 14:00 08/03/24 15:21 Heparin Sodium 5,000 Units/Ml Vial SUB-Q 5,000 units Q8HR THERESE Administration Dextrose 1,000 mls @ 100 mls/hr 07/30/24 18:29 Dextrose 5% 1,000 Ml IVPB PRN PRN Hypoglycemia Protocol Albumin Human 50 mls @ 999 mls/hr 08/01/24 07:00 Albutein IVPB 08/31/24 06:59 Q10M PRN HYPOTENSION Insulin Aspart 2 - 5 units 07/31/24 08:00 08/03/24 12:36 Insulin Aspart (*Bkc) 100 Units/Ml SUB-Q Not Given TIDWM [facility] Protocol Insulin Aspart 1 - 2 units 08/01/24 22:20 08/02/24 20:37 Insulin Aspart (*Bkc) 100 Units/Ml SUB-Q 1 units HS THERESE Administration Protocol Insulin Glargine 35 units 08/02/24 21:00 08/02/24 20:37 Insulin Glargine (*Bkc) 100 Units/Ml SUB-Q 35 units HS [facility] Administration Miconazole Nitrate 1 applic 07/31/24 09:00 08/03/24 08:31 Miconazole Nitrate 2% Cream 30 Gm Tube TOPICAL 1 applic Q12HR THERESE Administration * Home Med * 1.8 mg 07/31/24 21:00 Liraglutide [Victoza SUB-Q 08/30/24 20:59 2-Agustín] 0.6 Mg/0.1 HS [facility] Ml (18 Mg/3 Ml) Pen Injector Pantoprazole Sodium 40 mg 07/31/24 09:00 08/03/24 08:28 Pantoprazole 40 Mg Tablet PO 40 mg Q12HR THERESE Administration Prednisone 40 mg 08/03/24 11:55 08/03/24 12:09 Prednisone 20 Mg Tablet PO 40 mg DAILY@0800 [facility] Administration Sevelamer Carbonate 800 mg 07/31/24 08:00 08/03/24 16:43 Sevelamer Carbonate 800 Mg Tablet PO 800 mg TIDWM THERESE Administration Sitagliptin Phosphate 100 mg 07/31/24 09:00 07/31/24 08:56 Sitagliptin Phosphate 100 Mg Tablet PO 100 mg DAILY THERESE Administration Venlafaxine HCl 37.5 mg 08/03/24 11:50 08/03/24 12:09 Venlafaxine Hcl Xr 37.5 Mg Cap PO 37.5 mg DAILY@0800 [facility] Administration Vitamin B Complex/Folic Acid 1 cap 07/31/24 09:00 08/03/24 08:29 Vitamin B Cmplx/Vit C/Folic Ac 1 Capsule PO 1 cap DAILY THERESE Administration Radiology Results: ITS Impressions Chest X-Ray 07/30/24 15:11 IMPRESSION: 1. Mild pulmonary edema. 2. Cardiomegaly. Labs Labs: Laboratory Tests 08/03/24 06:04 08/03/24 06:04 Calcium 8.8 Total Bilirubin 1.2 AST 16 ALT 14 Alkaline Phosphatase 105 Total Protein 6.0 L Albumin 3.6
[2024-08-03] MEDS: HEPARIN SODIUM 5,000 UNITS/ML VIAL 5000 UNITS SUB-Q ×2 (15:21→21:33)
[2024-08-03] MEDS: IPRATROPIUM 0.5 MG/ALBUTEROL SULFATE 2.5 MG AMPUL.NEB 3 ML INHALATION (15:52)
[2024-08-03 17:23] LABS: Glucose Point of Care 214 mg/dl (65-105)
[2024-08-03] MEDS: INSULIN ASPART (*BKC) 100 UNITS/ML SUB-Q ×2 (17:34→22:08)
[2024-08-03] MEDS: INSULIN GLARGINE (*BKC) 100 UNITS/ML 35 UNITS SUB-Q (22:06)
[2024-08-04] VITALS (31 sets, daily range): BP systolic 90–148; BP diastolic 33–108; PULSE 60–88; RESP 16–20; TEMP 36.2–37.1; O2SAT 94–100
[2024-08-04 01:19] LABS: Glucose Point of Care 267 mg/dl (65-105)
[2024-08-04] MEDS: HEPARIN SODIUM 5,000 UNITS/ML VIAL 5000 UNITS SUB-Q ×2 (06:13→20:24)
[2024-08-04 07:22] LABS: Basophils Percent Auto 0.1 % (0.2-1.2); Hematocrit 30.5 % (37.0-47.0); Immature Granulocyte Absolute 0.08 K/mm3 (0.00-0.031); Lymphocytes Absolute Auto 0.75 K/mm3 (0.9-3.2); Lymphocytes Percent Auto 9.5 % (18.3-44.2); Mean Corpuscular HGB Conc 29.5 g/dl (32-36); Mean Corpuscular Hemoglobin 32.5 pg (26-34); Mean Corpuscular Volume 110.1 fl (80-100); Mean Platelet Volume 12.4 fl (7.4-10.4); Monocytes Absolute Auto 0.4 K/mm3 (0.1-0.6); Monocytes Percent Auto 4.9 % (2.6-8.5); Neutrophils Absolute Auto 6.7 K/mm3 (1.3-6.7); Neutrophils Percent Auto 84.5 % (45.5-73.1); Platelet Count Result 108 k/mm3 (150-375); Red Blood Count 2.77 M/mm3 (4.2-5.4); Red Cell Distribution Width 16.8 % (11.5-14.5); White Blood Count 7.9 K/mm3 (4.5-10.0)
[2024-08-04 07:43] LABS: Alanine Aminotransferase 16 U/L (6-35); Albumin Level 3.5 g/dL (3.5-5.1); Alkaline Phosphatase 106 U/L (38-126); Anion Gap 10 mmol/L (4-12); Aspartate Amino Transferase 18 U/L (14-36); Bilirubin,Total 1.3 mg/dL (0.2-1.3); Blood Urea Nitrogen 58 mg/dL (7-17); Calcium 8.8 mg/dL (8.4-10.2); Carbon Dioxide 25 mmol/L (22-30); Chloride 94 mmol/L (98-107); Estimated Glomerular Filt Rate 6; Glucose 213 mg/dL (65-110); Magnesium 2.5 mg/dL (1.6-2.3); Potassium 4.8 mmol/L (3.4-5.0); Sodium 129 mmol/L (137-145)
[2024-08-04 08:05] LABS: Platelet Estimate Decreased (Adequate); Polychromasia 1+
[2024-08-04 08:06] LABS: Anisocytosis 1+; Burr Cells 2+; Macrocytosis 1+ (NORMAL); Schistocytes None Seen
[2024-08-04 08:56] LABS: Glucose Point of Care 191 mg/dl (65-105)
[2024-08-04] MEDS: predniSONE 20 MG TABLET 40 MG PO (09:23)
[2024-08-04] MEDS: PANTOPRAZOLE 40 MG TABLET PO ×2 (09:23→20:22)
[2024-08-04] MEDS: carvediloL 3.125 MG TABLET PO ×2 (09:23→20:22)
[2024-08-04] MEDS: ATORVASTATIN 40 MG TABLET PO (09:23)
[2024-08-04] MEDS: guaiFENesin 12 HR 600 MG TABCR PO ×2 (09:23→20:22)
[2024-08-04] MEDS: SEVELAMER CARBONATE 800 MG TABLET PO ×3 (09:24→20:22)
[2024-08-04] MEDS: ACETAMINOPHEN 325 MG TABLET 650 MG PO (09:24)
[2024-08-04] MEDS: VITAMIN B CMPLX/VIT C/FOLIC AC 1 CAPSULE 1 CAP PO (09:24)
[2024-08-04] MEDS: CALCIUM CARBONATE (TUMS) 500 MG (200 MG ELEMENTAL) 600 MG PO ×3 (09:24→20:21)
[2024-08-04] MEDS: VENLAFAXINE HCL XR 37.5 MG CAP PO (09:25)
[2024-08-04] MEDS: CYANOCOBALAMIN 500 MCG TABLET PO (09:25)
[2024-08-04 11:57] LABS: Glucose Point of Care 197 mg/dl (65-105)
--- NOTE | 2024-08-04 13:35 | P.PNIM_ITS ---
Progress Note: A&P Assessment and Plan (1) Acute respiratory failure with hypoxia: Code(s): J96.01 - Acute respiratory failure with hypoxia Status: Acute Assessment and Plan: From fluid overload CXR showed pulm edema For dialysis today still on 1 liter oxygen If she continues to requires oxygen after dialysis will obtain cT chest to rule out pneumonia continue titrating oxygen (2) RSV infection: Qualifiers: RSV infection type: unspecified Qualified Code(s): B33.8 - Other sp ecified viral diseases Code(s): B33.8 - Other specified viral diseases Status: Acute Assessment and Plan: * Respiratory panel positive for RSV * Continue DuoNebs, Tessalon Perles, Mucinex * intial Chest x-ray negative * CXR today showed pulm edema however if oxygen requirement remains after dialysis then CT chest will be obtained to rule out pneumonia Prednisone 40mg daily x day 2/5days (3) ESRD (end stage renal disease) on dialysis: Code(s): N18.6 - End stage renal disease; Z99.2 - Dependence on renal dialysis Status: Chronic Assessment and Plan: continue dialysis Nephrology following (4) Type 2 diabetes mellitus: Qualifiers: Diabetes mellitus longterm insulin use: without longterm use Diabetes mellitus complication status: without complication Qualified Code(s): E11.9 - Type 2 diabetes mellitus without complications Code(s): E11.9 - Type 2 diabetes mellitus without complications Status: Chronic Assessment and Plan: * Blood sugars ranging 139-284 * Hgb A1C 7.1 * Accu checks AC/HS * Low-dose SSI ordered * Continue Lantus 35 units at bedtime * Will hold Victoza and sitagliptin while inpatient * hypoglycemic protocol in place * Diabetic diet ordered * monitor (5) Atrial fibrillation: Qualifiers: Atrial fibrillation type: unspecified Qualified Code(s): I48.91 - Unspecified atrial fibrillation Code(s): I48.91 - Unspecified atrial fibrillation Status: Chronic Assessment and Plan: * EKG showing AFib rate controlled * Not currently on any home medications??? * investigate (6) Anemia: Qualifiers: Anemia type: unspecified type Qualified Code(s): D64.9 - Anemia, unspecified Code(s): D64.9 - Anemia, unspecified Status: Chronic Assessment and Plan: Likely secondary to her end-stage renal disease * Hemoglobin 9.1 (7) Hypertension: Qualifiers: Hypertension type: unspecified Qualified Code(s): I10 - Essential (primary) hypertension Code(s): I10 - Essential (primary) hypertension Status: Chronic Assessment and Plan: * Low blood pressures resolved on Coreg monitor and adjust stable Plan Diabetic neuropathy Started on Venlafaxine monitor DVT prophylaxis on Sq Heparin PT/OT eval for discharge planning Subjective Date/time seen: 08/04/24 13:35 Interval history: Patient comfortable at bedside but still on oxygen CXR showed pulm edema and she is going for dialysis today Review of Systems Review of Systems: All systems reviewed & are unremarkable except as noted in HPI and below Constitutional: Constitutional: Reports as per HPI and Reports no additional constitutional complaints Eyes: Eyes: Reports as per HPI and Reports no additional eye complaints ENT: Reports system reviewed and no additional complaints, except as documented and Reports as per HPI Cardiovascular: Cardiovascular: Reports as per HPI and Reports no additional cardiovascular complaints Respiratory: Respiratory: Reports as per HPI and Reports no additional respiratory complaints Gastrointestinal: Gastrointestinal: Reports as per HPI and Reports no additional gastrointestinal complaints Genitourinary: Genitourinary: Reports no additional female genitourinary complaints and Reports as per HPI Musculoskeletal: Musculoskeletal: Reports no additional musculoskeletal complaints and Reports as per HPI Integumentary/Breasts: Skin/Breast: Reports system reviewed and no additional complaints, except as docu and Reports as per HPI Neurologic: Reports system reviewed and no additional complaints, except as documented and Reports as per HPI Psychiatric: Psychiatric: Reports no additional psychiatric complaints and Reports as per HPI Exam Narrative: General: In no acute distress Cardiac: Normal S1 and S2. No murmur, gallops or friction rubs, peripheral pulses intact. Respiratory: Rhonchi with mild expiratory wheezing bilaterally---R>L, , on 1L NC Gastrointestinal: soft, non-distended, non-tender, normoactive bowel sounds. :anuric on HD M-W-F Neuro: Alert and oriented x4 Const: General: comfortable and no acute distress Other: Elderly, female, ill-appearing HENMT: Face/Nose/Sinus: Normal nares present Mouth: Yes moist mucous membranes Eyes: General: appearance normal, both eyes and all related structures Sclera: sclerae normal Pupils: Equal, round and reactive pupils present EOM: EOMs intact bilaterally Resp: Other: Bibasilar crackles, + tachypnea without increased work of breathing Cardio: Rate: regular rate Rhythm: regular rhythm Other: S1-S2 present without murmur, rub, ectopy GI: Other: Abdomen soft, nondistended, nontender. Skin: General skin exam: normal color and no rashes or lesions noted Wounds: no wounds Neuro: Cranial nerves: Yes Equal, round and reactive pupils present Speech: normal speech Motor exam (neuro): 5/5 motor strength present throughout S ensory Exam: normal sensation Other: S1-S2 present without murmur, rub, ectopy Extrem: General: normal exam except as noted Other: +thrill and bruit to RUE fistula. old fistula to LUE. Psych: Mental Status: mental status grossly normal Affect: normal affect Other: Good insight and judgment, pleasant Objective Data Vital Signs Vital Signs: Vital Signs - 24 hr 08/03/24 14:02 08/03/24 16:00 08/03/24 19:53 Temperature 97.4 F L Pulse Rate 65 69 Respiratory Rate 18 Blood Pressure 113/40 L Pulse Oximetry 100 97 Oxygen Delivery Nasal Cannula Oxygen Flow Rate 2 Fraction of Inspired Oxygen 08/03/24 21:32 08/03/24 22:00 08/04/24 00:00 Temperature 97.2 F L Pulse Rate 80 74 66 Respiratory Rate 18 Blood Pressure 130/45 L Pulse Oximetry 100 Oxygen Delivery Oxygen Flow Rate Fraction of Inspired Oxygen 08/04/24 04:00 08/04/24 06:00 08/04/24 07:52 Temperature 97.4 F L Pulse Rate 71 74 Respiratory Rate 16 Blood Pressure 108/48 L Pulse Oximetry 94 96 Oxygen Delivery Nasal Cannula Oxygen Flow Rate 2 Fraction of Inspired Oxygen 08/04/24 09:23 Temperature Pulse Rate 77 Respiratory Rate Blood Pressure Pulse Oximetry Oxygen Delivery Oxygen Flow Rate Fraction of Inspired Oxygen Intake/Output Intake/Output: Intake & Output 08/01/24 08/02/24 08/03/24 08/04/24 23:59 23:59 23:59 23:59 Intake Total 490 900 915 640 Output Total 1000 150 Balance -510 900 765 640 Meds/Results Medications: Active Medications Generic Name Dose Route Start Last Admin Trade Name Freq PRN Reason Stop Dose Admin Acetaminophen 650 mg 07/30/24 18:22 08/04/24 09:24 Acetaminophen 325 Mg Tablet PO 650 mg Q6H PRN Administration Mild Pain (1-3) or Fever Albuterol/Ipratropium 3 ml 07/30/24 18:22 08/03/24 15:52 Ipratropium 0.5 Mg/Albuterol Sulfate 2.5 Mg Ampul.Neb 3 Ml INHALATION 3 ml Q6HRT PRN Administration Shortness Of Breath Or Wheezing Atorvastatin Calcium 40 mg 07/31/24 09:00 08/04/24 09:23 Atorvastatin 40 Mg Tablet PO 40 mg DAILY THERESE Administration Benzocaine 1 lozenge 07/30/24 18:22 07/30/24 21:28 Benzocaine/Menthol (*Bkc) 18 Ea Lozenge PO 1 lozenge PRN PRN Administration Sore Throat Benzonatate 100 mg 07/30/24 18:22 07/30/24 21:27 Benzonatate 100 Mg Capsule PO 100 mg TID PRN Administration Cough Calcium Carbonate 600 mg 08/01/24 17:30 08/04/24 12:50 Calcium Carbonate (Tums) 500 Mg (200 Mg Elemental) PO 600 mg TID THERESE Administration Carvedilol 3.125 mg 08/02/24 21:00 08/04/24 09:23 Carvedilol 3.125 Mg Tablet PO 3.125 mg Q12HR THERESE Administration Cyanocobalamin 500 mcg 07/31/24 09:00 08/04/24 09:25 Cyanocobalamin 500 Mcg Tablet PO 500 mcg DAILY THERESE Administration Dextrose 12.5 gm 07/30/24 18:29 Dextrose 50% 25 Gm/50 Ml Syringe IV PUSH PRN PRN Hypoglycemia Protocol Dicyclomine HCl 10 mg 07/30/24 21:35 Dicyclomine Hcl 10 Mg Capsule PO BID PRN Abdominal Pain Epoetin Son-epbx 10,000 units 08/04/24 18:01 Epoetin Son-Epbx 10,000 Units/Ml Vial IV PUSH 08/04/24 18:02 ONCE ONE Ergocalciferol 50,000 units 08/02/24 09:00 08/02/24 09:04 Ergocalciferol 50,000 Units Capsule PO 50,000 units WEEKLY THERESE Administration Glucagon 1 mg 07/30/24 18:29 Glucagon For Inj 1 Mg Vial IM PRN PRN Hypoglycemia Protocol Glucose 15 gm 07/30/24 18:29 Glucose Oral Gel 15 Gm Of Glucse In 37.5 Gm Tube PO PRN PRN Hypoglycemia Protocol Guaifenesin 600 mg 07/30/24 21:00 08/04/24 09:23 Guaifenesin 12 Hr 600 Mg Tabcr PO 600 mg Q12HR THERESE Administration Heparin Sodium (Porcine) 5,000 units 08/03/24 14:00 08/04/24 06:13 Heparin Sodium 5,000 Units/Ml Vial SUB-Q 5,000 units Q8HR THERESE Administration Dextrose 1,000 mls @ 100 mls/hr 07/30/24 18:29 Dextrose 5% 1,000 Ml IVPB PRN PRN Hypoglycemia Protocol Albumin Human 50 mls @ 999 mls/hr 08/01/24 07:00 Albutein IVPB 08/31/24 06:59 Q10M PRN HYPOTENSION Insulin Aspart 2 - 5 units 07/31/24 08:00 08/04/24 12:31 Insulin Aspart (*Bkc) 100 Units/Ml SUB-Q Not Given TIDWM THERESE Protocol Insulin Aspart 1 - 2 units 08/01/24 22:20 08/03/24 22:08 Insulin Aspart (*Bkc) 100 Units/Ml SUB-Q 1 units HS THERESE Administration Protocol Insulin Glargine 35 units 08/02/24 21:00 08/03/24 22:06 Insulin Glargine (*Bkc) 100 Units/Ml SUB-Q 35 units HS THERESE Administration Miconazole Nitrate 1 applic 07/31/24 09:00 08/04/24 09:32 Miconazole Nitrate 2% Cream 30 Gm Tube TOPICAL Not Given Q12HR [facility] * Home Med * 1.8 mg 07/31/24 21:00 Liraglutide [Victoza SUB-Q 08/30/24 20:59 2-Agustín] 0.6 Mg/0.1 HS [facility] Ml (18 Mg/3 Ml) Pen Injector Pantoprazole Sodium 40 mg 07/31/24 09:00 08/04/24 09:23 Pantoprazole 40 Mg Tablet PO 40 mg Q12HR THERESE Administration Prednisone 40 mg 08/03/24 11:55 08/04/24 09:23 Prednisone 20 Mg Tablet PO 40 mg DAILY@0800 THERESE Administration Sevelamer Carbonate 800 mg 07/31/24 08:00 08/04/24 12:50 Sevelamer Carbonate 800 Mg Tablet PO 800 mg TIDWM THERESE Administration Sitagliptin Phosphate 100 mg 07/31/24 09:00 07/31/24 08:56 Sitagliptin Phosphate 100 Mg Tablet PO 100 mg DAILY THERESE Administration Venlafaxine HCl 37.5 mg 08/03/24 11:50 08/04/24 09:25 Venlafaxine Hcl Xr 37.5 Mg Cap PO 37.5 mg DAILY@0800 THERESE Administration Vitamin B Complex/Folic Acid 1 cap 07/31/24 09:00 08/04/24 09:24 Vitamin B Cmplx/Vit C/Folic Ac 1 Capsule PO 1 cap DAILY THERESE Administration Radiology Results: ITS Impressions Chest X-Ray 08/04/24 08:18 Impression: Mild to moderate pulmonary edema pattern, right worse than left, versus possibly pneumonia. Correlate clinically. Stable cardiomegaly. Labs Labs: Laboratory Results - last 24 hr 08/03/24 08/03/24 08/04/24 17:20 22:06 07:12 WBC 7.9 RBC 2.77 L Hgb 9.0 L Hct 30.5 L MCV 110.1 H MCH 32.5 MCHC 29.5 L RDW 16.8 H Plt Count 108 L MPV 12.4 H Immature Gran % (Auto) 1.0 H Neut % (Auto) 84.5 H Lymph % (Auto) 9.5 L [place] % (Auto) 4.9 Eos % (Auto) 0.0 Baso % (Auto) 0.1 L Lymph # (Auto) 0.75 L [place] # (Auto) 0.4 Eos # (Auto) 0.0 Baso # (Auto) 0.0 Abs Immat Gran (auto) 0.08 H Absolute Neuts (auto) 6.7 Absolute Nucleated RBC 0.000 Nucleated RBC % 0.0 Platelet Estimate Decreased Polychromasia 1+ Anisocytosis 1+ Macrocytosis 1+ [place] Cells 2+ Schistocytes None seen Sodium 129 L Potassium 4.8 Chloride 94 L Carbon Dioxide 25 Anion Gap 10 BUN 58 H D Creatinine 6.69 H Estim Creat Clear Calc Not Reportable Estimated GFR 6 L Glucose 213 H POC Capillary Glucose 214 H 267 H Calcium 8.8 Magnesium 2.5 H Total Bilirubin 1.3 AST 18 ALT 16 Alkaline Phosphatase 106 Total Protein 6.0 L Albumin 3.5 01/27/25 01/27/25 08:44 11:45 WBC RBC Hgb Hct MCV MCH MCHC RDW Plt Count MPV Immature Gran % (Auto) Neut % (Auto) Lymph % (Auto) [place] % (Auto) Eos % (Auto) Baso % (Auto) Lymph # (Auto) [place] # (Auto) Eos # (Auto) Baso # (Auto) Abs Immat Gran (auto) Absolute Neuts (auto) Absolute Nucleated RBC Nucleated RBC % Platelet Estimate Polychromasia Anisocytosis Macrocytosis [place] Cells Schistocytes Sodium Potassium Chloride Carbon Dioxide Anion Gap BUN Creatinine Estim Creat Clear Calc Estimated GFR Glucose POC Capillary Glucose 191 H 197 H Calcium Magnesium Total Bilirubin AST ALT Alkaline Phosphatase Total Protein Albumin Quality VTE Prophylaxis VTE prophylaxis: mechanical ordered
--- NOTE | 2024-08-04 15:05 | PC.NURSE ---
Patient transported to dialysis per bed at 1500.
[2024-08-04] MEDS: ALBUMIN HUMAN 25% 12.5 GM/50ML 150 ML 50 GM (15:52)
[2024-08-04] MEDS: HEPARIN SODIUM 1,000 UNITS/ML VIAL 1000 UNITS (15:54)
--- NOTE | 2024-08-04 16:39 | PM.PNNEP ---
Progress Note: A&P Assessment and Plan (1) End stage renal disease: Code(s): N18.6 - End stage renal disease Status: Chronic Assessment and Plan: HD today continue M/W/F dialysis schedule while hospitalized follow electrolytes, volume status, and clearance (2) Hypoxia: Code(s): R09.02 - Hypoxemia Status: Acute Assessment and Plan: as noted by EMS 80% on room air improved with 2L oxygen by nasal cannula presumably due to mild pulmonary edema and RSV (as noted on admission) no evidence of pneumonia by CXR wean supplemental oxygen as tolerated (3) RSV infection: Qualifiers: RSV infection type: unspecified Qualified Code(s): B33.8 - Other specified viral diseases Code(s): B33.8 - Other specified viral diseases Status: Acute Assessment and Plan: tested positive for RSV on 07/30 in ER reported onset of symptoms on 07/28 CXR negative for pneumonia continues supportive care: Mucinex Tessalon Perles p.r.n. DuoNeb as needed Tylenol (4) Atrial fibrillation: Qualifiers: Atrial fibrillation type: unspecified Qualified Code(s): I48.91 - Unspecified atrial fibrillation Code(s): I48.91 - Unspecified atrial fibrillation Status: Chronic Assessment and Plan: paroxysmal rate controlled not on anticoagulation (due to hx of GI bleeding versus fall risk?) (5) Anemia: Qualifiers: Anemia type: unspecified type Qualified Code(s): D64.9 - Anemia, unspecified Code(s): D64.9 - Anemia, unspecified Status: Chronic Assessment and Plan: related to ESRD Epogen with HD follow trend of H/H (6) Hypertension: Qualifiers: Hypertension type: unspecified Qualified Code(s): I10 - Essential (primary) hypertension Code(s): I10 - Essential (primary) hypertension Status: Chronic Assessment and Plan: reasonable control follow hemodynamics (7) Type 2 diabetes mellitus: Qualifiers: Diabetes mellitus skilled nursing insulin use: without longitudinal float operator use Diabetes mellitus complication status: without complication Qualified Code(s): E11.9 - Type 2 diabetes mellitus without complications Code(s): E11.9 - Type 2 diabetes mellitus without complications Status: Chronic Assessment and Plan: follow accuchecks glycemic control per hospitalists Will continue to follow. Subjective Date/time seen: 08/04/24 16:39 Interval history: Follow-up for end stage renal disease on hemodialysis. Tolerating dialysis at the time of my visit (seen on HD at 4:30PM); breathing/respiratory status remains relatively stable but remains oxygen dependent at this time; no other issues/events overnight or earlier this morning. Exam Narrative: General: elderly female in NAD Heart: normal S1 and S2; no rub Lungs: coarse breath sounds Abdomen: soft, nontender, nondistended, positive bowel sounds Extremities: no cyanosis or clubbing; no edema Skin: no nodules Objective Data Vital Signs Vital Signs: Vital Signs Temp Pulse Resp BP Pulse Ox O2 Del Method O2 Flow Rate 08/04/24 16:00 65 108/44 L 08/04/24 15:45 67 110/33 L 08/04/24 15:43 67 121/87 08/04/24 14:00 97.3 F L 88 16 146/74 H 94 08/04/24 09:23 77 08/04/24 09:20 96 Nasal Cannula 2 08/04/24 07:52 96 Nasal Cannula 2 08/04/24 06:00 97.4 F L 74 16 108/48 L 94 08/04/24 04:00 71 08/04/24 00:00 66 08/03/24 22:00 97.2 F L 74 18 130/45 L 100 08/03/24 21:32 80 08/03/24 19:53 97 Nasal Cannula 2 Intake/Output Intake/Output: Intake & Output 08/01/24 08/02/24 08/03/24 08/04/24 23:59 23:59 23:59 23:59 Intake Total 490 900 915 760 Output Total 1000 150 Balance -510 900 765 760 Meds/Results Medications: Active Medications Generic Name Dose Route Start Last Admin Trade Name Freq PRN Reason Stop Dose Admin Acetaminophen 650 mg 07/30/24 18:22 08/04/24 09:24 Acetaminophen 325 Mg Tablet PO 650 mg Q6H PRN Administration Mild Pain (1-3) or Fever Albuterol/Ipratropium 3 ml 07/30/24 18:22 08/03/24 15:52 Ipratropium 0.5 Mg/Albuterol Sulfate 2.5 Mg Ampul.Neb 3 Ml INHALATION 3 ml Q6HRT PRN Administration Shortness Of Breath Or Wheezing Atorvastatin Calcium 40 mg 07/31/24 09:00 08/04/24 09:23 Atorvastatin 40 Mg Tablet PO 40 mg DAILY THERESE Administration Benzocaine 1 lozenge 07/30/24 18:22 07/30/24 21:28 Benzocaine/Menthol (*Bkc) 18 Ea Lozenge PO 1 lozenge PRN PRN Administration Sore Throat Benzonatate 100 mg 07/30/24 18:22 07/30/24 21:27 Benzonatate 100 Mg Capsule PO 100 mg TID PRN Administration Cough Calcium Carbonate 600 mg 08/01/24 17:30 08/04/24 12:50 Calcium Carbonate (Tums) 500 Mg (200 Mg Elemental) PO 600 mg TID THERESE Administration Carvedilol 3.125 mg 08/02/24 21:00 08/04/24 09:23 Carvedilol 3.125 Mg Tablet PO 3.125 mg Q12HR THERESE Administration Cyanocobalamin 500 mcg 07/31/24 09:00 08/04/24 09:25 Cyanocobalamin 500 Mcg Tablet PO 500 mcg DAILY THERESE Administration Dextrose 12.5 gm 07/30/24 18:29 Dextrose 50% 25 Gm/50 Ml Syringe IV PUSH PRN PRN Hypoglycemia Protocol Dicyclomine HCl 10 mg 07/30/24 21:35 Dicyclomine Hcl 10 Mg Capsule PO BID PRN Abdominal Pain Ergocalciferol 50,000 units 08/02/24 09:00 08/02/24 09:04 Ergocalciferol 50,000 Units Capsule PO 50,000 units WEEKLY THERESE Administration Glucagon 1 mg 07/30/24 18:29 Glucagon For Inj 1 Mg Vial IM PRN PRN Hypoglycemia Protocol Glucose 15 gm 07/30/24 18:29 Glucose Oral Gel 15 Gm Of Glucse In 37.5 Gm Tube PO PRN PRN Hypoglycemia Protocol Guaifenesin 600 mg 07/30/24 21:00 08/04/24 09:23 Guaifenesin 12 Hr 600 Mg Tabcr PO 600 mg Q12HR THERESE Administration Heparin Sodium (Porcine) 5,000 units 08/03/24 14:00 08/04/24 15:06 Heparin Sodium 5,000 Units/Ml Vial SUB-Q Not Given Q8HR THERESE Dextrose 1,000 mls @ 100 mls/hr 07/30/24 18:29 Dextrose 5% 1,000 Ml IVPB PRN PRN Hypoglycemia Protocol Albumin Human 50 mls @ 999 mls/hr 08/01/24 07:00 Albutein IVPB 08/31/24 06:59 Q10M PRN HYPOTENSION Insulin Aspart 2 - 5 units 07/31/24 08:00 08/04/24 12:31 Insulin Aspart (*Bkc) 100 Units/Ml SUB-Q Not Given TIDWM [facility]ER[facility] Protocol Insulin Aspart 1 - 2 units 08/01/24 22:20 08/03/24 22:08 Insulin Aspart (*Bkc) 100 Units/Ml SUB-Q 1 units HS THERESE Administration Protocol Insulin Glargine 35 units 08/02/24 21:00 08/03/24 22:06 Insulin Glargine (*Bkc) 100 Units/Ml SUB-Q 35 units HS [facility] Administration Miconazole Nitrate 1 applic 07/31/24 09:00 08/04/24 09:32 Miconazole Nitrate 2% Cream 30 Gm Tube TOPICAL Not Given Q12HR THERESE * Home Med * 1.8 mg 07/31/24 21:00 Liraglutide [Victoza SUB-Q 08/30/24 20:59 2-Agustín] 0.6 Mg/0.1 HS [facility] Ml (18 Mg/3 Ml) Pen Injector Pantoprazole Sodium 40 mg 07/31/24 09:00 08/04/24 09:23 Pantoprazole 40 Mg Tablet PO 40 mg Q12HR THERESE Administration Prednisone 40 mg 08/03/24 11:55 08/04/24 09:23 Prednisone 20 Mg Tablet PO 40 mg DAILY@0800 [facility] Administration Sevelamer Carbonate 800 mg 07/31/24 08:00 08/04/24 12:50 Sevelamer Carbonate 800 Mg Tablet PO 800 mg TIDWM [facility]ER[facility] Administration Sitagliptin Phosphate 100 mg 07/31/24 09:00 07/31/24 08:56 Sitagliptin Phosphate 100 Mg Tablet PO 100 mg DAILY THERESE Administration Venlafaxine HCl 37.5 mg 08/03/24 11:50 08/04/24 09:25 Venlafaxine Hcl Xr 37.5 Mg Cap PO 37.5 mg DAILY@0800 [facility] Administration Vitamin B Complex/Folic Acid 1 cap 07/31/24 09:00 08/04/24 09:24 Vitamin B Cmplx/Vit C/Folic Ac 1 Capsule PO 1 cap DAILY THERESE Administration Radiology Results: ITS Impressions Chest X-Ray 08/04/24 08:18 Impression: Mild to moderate pulmonary edema pattern, right worse than left, versus possibly pneumonia. Correlate clinically. Stable cardiomegaly. Labs Labs: Laboratory Tests 08/04/24 07:12 08/04/24 07:12 Calcium 8.8 Magnesium 2.5 H Total Bilirubin 1.3 AST 18 ALT 16 Alkaline Phosphatase 106 Total Protein 6.0 L Albumin 3.5
[2024-08-04] MEDS: MICONAZOLE NITRATE 2% CREAM 30 GM TUBE 1 APPLIC TOPICAL (20:24)
[2024-08-04] MEDS: INSULIN GLARGINE (*BKC) 100 UNITS/ML 35 UNITS SUB-Q (20:24)
[2024-08-04 21:05] LABS: Glucose Point of Care 142 mg/dl (65-105)
[2024-08-05] VITALS (12 sets, daily range): BP systolic 108–125; BP diastolic 33–49; PULSE 62–80; RESP 14–20; TEMP 36.1–36.5; O2SAT 93–100
[2024-08-05] MEDS: HEPARIN SODIUM 5,000 UNITS/ML VIAL 5000 UNITS SUB-Q ×3 (05:28→21:13)
[2024-08-05 05:46] LABS: Basophils Percent Auto 0.1 % (0.2-1.2); Hematocrit 30.6 % (37.0-47.0); Immature Granulocyte Absolute 0.07 K/mm3 (0.00-0.031); Immature Granulocyte Percent A 0.8 % (0-0.5); Lymphocytes Absolute Auto 0.58 K/mm3 (0.9-3.2); Lymphocytes Percent Auto 6.7 % (18.3-44.2); Mean Corpuscular HGB Conc 29.4 g/dl (32-36); Mean Corpuscular Hemoglobin 32.3 pg (26-34); Mean Corpuscular Volume 109.7 fl (80-100); Mean Platelet Volume 12.1 fl (7.4-10.4); Monocytes Absolute Auto 0.4 K/mm3 (0.1-0.6); Monocytes Percent Auto 4.7 % (2.6-8.5); Neutrophils Absolute Auto 7.6 K/mm3 (1.3-6.7); Neutrophils Percent Auto 87.7 % (45.5-73.1); Nucleated Red Blood Cells Perc 0.3 % (0.0-0.2); Platelet Count Result 114 k/mm3 (150-375); Red Blood Count 2.79 M/mm3 (4.2-5.4); Red Cell Distribution Width 17.2 % (11.5-14.5); White Blood Count 8.7 K/mm3 (4.5-10.0)
[2024-08-05 06:10] LABS: Alanine Aminotransferase 13 U/L (6-35); Albumin Level 3.9 g/dL (3.5-5.1); Alkaline Phosphatase 84 U/L (38-126); Anion Gap 8 mmol/L (4-12); Aspartate Amino Transferase 18 U/L (14-36); Bilirubin,Total 0.9 mg/dL (0.2-1.3); Blood Urea Nitrogen 23 mg/dL (7-17); Calcium 8.7 mg/dL (8.4-10.2); Carbon Dioxide 29 mmol/L (22-30); Chloride 100 mmol/L (98-107); Estimated Glomerular Filt Rate 16; Glucose 149 mg/dL (65-110); Magnesium 2.2 mg/dL (1.6-2.3); Sodium 137 mmol/L (137-145)
[2024-08-05] MEDS: ACETAMINOPHEN 325 MG TABLET 650 MG PO ×3 (06:35→21:14)
[2024-08-05 06:52] LABS: Anisocytosis 1+; Basophilic Stippling 1+; Macrocytosis 1+ (NORMAL); Ovalocytes 1+; Platelet Estimate Decreased (Adequate); Polychromasia 1+
[2024-08-05 06:53] LABS: Burr Cells 1+; Schistocytes None Seen
[2024-08-05] MEDS: VENLAFAXINE HCL XR 37.5 MG CAP PO (08:28)
[2024-08-05] MEDS: CYANOCOBALAMIN 500 MCG TABLET PO (08:28)
[2024-08-05] MEDS: PANTOPRAZOLE 40 MG TABLET PO ×2 (08:28→21:13)
[2024-08-05] MEDS: SEVELAMER CARBONATE 800 MG TABLET PO ×3 (08:28→17:27)
[2024-08-05] MEDS: predniSONE 20 MG TABLET 40 MG PO (08:28)
[2024-08-05] MEDS: VITAMIN B CMPLX/VIT C/FOLIC AC 1 CAPSULE 1 CAP PO (08:28)
[2024-08-05] MEDS: carvediloL 3.125 MG TABLET PO ×2 (08:29→21:14)
[2024-08-05] MEDS: guaiFENesin 12 HR 600 MG TABCR PO ×2 (08:30→21:13)
[2024-08-05] MEDS: ATORVASTATIN 40 MG TABLET PO (08:30)
[2024-08-05 08:32] LABS: Glucose Point of Care 134 mg/dl (65-105)
[2024-08-05] MEDS: CALCIUM CARBONATE (TUMS) 500 MG (200 MG ELEMENTAL) 600 MG PO ×3 (09:17→17:27)
[2024-08-05 11:38] LABS: Glucose Point of Care 143 mg/dl (65-105)
--- NOTE | 2024-08-05 11:52 | P.PNNP_ITS ---
Progress Note: A&P Assessment and Plan (1) End stage renal disease: Code(s): N18.6 - End stage renal disease Status: Chronic Assessment and Plan: * HD tomorrow * continue M/W/F dialysis schedule while hospitalized * follow electrolytes, volume status, and clearance (2) Hypoxia: Code(s): R09.02 - Hypoxemia Status: Acute Assessment and Plan: * as nted by EMS * 80% on room air * improved with 2L oxygen by nasal cannula * presumably due to mild pulmonary edema and RSV (as noted on admission) * no evidence of pneumonia by CXR to date * wean supplemental oxygen as tolerated (3) RSV infection: Qualifiers: RSV infection type: unspecified Qualified Code(s): B33.8 - Other specified viral diseases Code(s): B33.8 - Other specified viral diseases Status: Acute Assessment and Plan: * tested positive for RSV on 07/30 in ER * reported onset of symptoms on 07/28 * CXR negative for pneumonia * continues supportive care: * Mucinex * Tessalon Perles p.r.n. * DuoNeb as needed * Tylenol (4) Atrial fibrillation: Qualifiers: Atrial fibrillation type: unspecified Qualified Code(s): I48.91 - Unspecified atrial fibrillation Code(s): I48.91 - Unspecified atrial fibrillation Status: Chronic Assessment and Plan: * paroxysmal * rate controlled * not on anticoagulation (due to hx of GI bleeding versus fall risk?) (5) Anemia: Qualifiers: Anemia type: unspecified type Qualified Code(s): D64.9 - Anemia, unspecified Code(s): D64.9 - Anemia, unspecified Status: Chronic Assessment and Plan: * related to ESRD * Epogen with HD * follow trend of H/H (6) Hypertension: Qualifiers: Hypertension type: unspecified Qualified Code(s): I10 - Essential (primary) hypertension Code(s): I10 - Essential (primary) hypertension Status: Chronic Assessment and Plan: * reasonable control * folloe hemodynamics (7) Type 2 diabetes mellitus: Qualifiers: Diabetes mellitus fpc insulin use: without barrel charrer helper use Diabetes mellitus complication status: without complication Qualified Code(s): E11.9 - Type 2 diabetes mellitus without complications Code(s): E11.9 - Type 2 diabetes mellitus without complications Status: Chronic Assessment and Plan: * follow accuchecks * glycemic control per hospitalists Will continue to follow. L Subjective Date/time seen: 08/05/24 11:52 Interval history: Follow-up for end stage renal disease on hemodialysis. Tolerated dialysis treatment yesterday without any issues or problems; feels reasonably well but still requiring supplemental oxygen to maintain her oxygen saturations; nursing reports fluctuating mental status although she appears at baseline at the time of my visit. Exam 2 Narrative: General: elderly female in NAD Heart: normal S1 and S2; no rub Lungs: coarse breath sounds Abdomen: soft, nontender, nondistended, positive bowel sounds Extremities: no cyanosis or clubbing; no edema Skin: warm and dry Objective Data Vital Signs Vital Signs: Vital Signs Temp Pulse Resp BP Pulse Ox O2 Del Method O2 Flow Rate 08/05/24 08:35 93 Nasal Cannula 2 08/05/24 08:29 80 08/05/24 08:04 72 08/05/24 06:00 97.5 F L 69 16 125/42 L 95 08/05/24 04:00 66 08/05/24 00:00 67 08/04/24 23:15 97.1 F L 62 18 148/46 H 96 08/04/24 20:22 85 08/04/24 20:18 98.4 F 78 20 100 08/04/24 20:00 69 08/04/24 20:00 100 Nasal Cannula 2 08/04/24 19:28 97.7 F 66 16 115/55 L 100 08/04/24 19:14 65 100/47 L 08/04/24 19:00 67 129/108 H 08/04/24 18:45 67 107/42 L 08/04/24 18:30 70 107/45 L 08/04/24 18:15 66 110/45 L 08/04/24 18:00 74 100/48 L 08/04/24 17:45 64 90/40 L 08/04/24 17:30 66 98/42 L 08/04/24 17:15 68 99/45 L 08/04/24 17:00 73 103/48 L 08/04/24 16:45 73 107/49 L 08/04/24 16:30 69 94/50 L 08/04/24 16:15 64 100/44 L 08/04/24 16:00 60 08/04/24 16:00 65 108/44 L 08/04/24 15:45 67 110/33 L 08/04/24 15:43 67 121/87 08/04/24 15:25 98.1 F 69 16 95/38 L 100 08/04/24 15:25 2 08/04/24 14:00 97.3 F L 88 16 146/74 H 94 Intake/Output Intake/Output: Intake & Output 08/02/24 08/03/24 08/04/24 08/05/24 23:59 23:59 23:59 23:59 Intake Total 900 915 760 360 Output Total 150 1650 Balance 900 765 -890 360 Meds/Results Medications: Active Medications Generic Name Dose Route Start Last Admin Trade Name Freq PRN Reason Stop Dose Admin Acetaminophen 650 mg 07/30/24 18:22 08/05/24 12:10 Acetaminophen 325 Mg Tablet PO 650 mg Q6H PRN Administration Mild Pain (1-3) or Fever Albuterol/Ipratropium 3 ml 07/30/24 18:22 08/03/24 15:52 Ipratropium 0.5 Mg/Albuterol Sulfate 2.5 Mg Ampul.Neb 3 Ml INHALATION 3 ml Q6HRT PRN Administration Shortness Of Breath Or Wheezing Atorvastatin Calcium 40 mg 07/31/24 09:00 08/05/24 08:30 Atorvastatin 40 Mg Tablet PO 40 mg DAILY THERESE Administration Benzocaine 1 lozenge 07/30/24 18:22 07/30/24 21:28 Benzocaine/Menthol (*Bkc) 18 Ea Lozenge PO 1 lozenge PRN PRN Administration Sore Throat Benzonatate 100 mg 07/30/24 18:22 07/30/24 21:27 Benzonatate 100 Mg Capsule PO 100 mg TID PRN Administration Cough Calcium Carbonate 600 mg 08/01/24 17:30 08/05/24 12:09 Calcium Carbonate (Tums) 500 Mg (200 Mg Elemental) PO 600 mg TID THERESE Administration Carvedilol 3.125 mg 08/02/24 21:00 08/05/24 08:29 Carvedilol 3.125 Mg Tablet PO 3.125 mg Q12HR THERESE Administration Cyanocobalamin 500 mcg 07/31/24 09:00 08/05/24 08:28 Cyanocobalamin 500 Mcg Tablet PO 500 mcg DAILY THERESE Administration Dextrose 12.5 gm 07/30/24 18:29 Dextrose 50% 25 Gm/50 Ml Syringe IV PUSH PRN PRN Hypoglycemia Protocol Dicyclomine HCl 10 mg 07/30/24 21:35 Dicyclomine Hcl 10 Mg Capsule PO BID PRN Abdominal Pain Ergocalciferol 50,000 units 08/02/24 09:00 08/02/24 09:04 Ergocalciferol 50,000 Units Capsule PO 50,000 units WEEKLY THERESE Administration Glucagon 1 mg 07/30/24 18:29 Glucagon For Inj 1 Mg Vial IM PRN PRN Hypoglycemia Protocol Glucose 15 gm 07/30/24 18:29 Glucose Oral Gel 15 Gm Of Glucse In 37.5 Gm Tube PO PRN PRN Hypoglycemia Protocol Guaifenesin 600 mg 07/30/24 21:00 08/05/24 08:30 Guaifenesin 12 Hr 600 Mg Tabcr PO 600 mg Q12HR [facility]ER[facility] Administration Heparin Sodium (Porcine) 5,000 units 08/03/24 14:00 08/05/24 05:28 Heparin Sodium 5,000 Units/Ml Vial SUB-Q 5,000 units Q8HR [facility]ERESE Administration Dextrose 1,000 mls @ 100 mls/hr 07/30/24 18:29 Dextrose 5% 1,000 Ml IVPB PRN PRN Hypoglycemia Protocol Albumin Human 50 mls @ 999 mls/hr 08/01/24 07:00 Albutein IVPB 08/31/24 06:59 Q10M PRN HYPOTENSION Insulin Aspart 2 - 5 units 07/31/24 08:00 08/05/24 12:12 Insulin Aspart (*Bkc) 100 Units/Ml SUB-Q Not Given TIDWM [facility] Protocol Insulin Aspart 1 - 2 units 08/01/24 22:20 08/04/24 20:22 Insulin Aspart (*Bkc) 100 Units/Ml SUB-Q Not Given HS [facility] Protocol Insulin Glargine 35 units 08/02/24 21:00 08/04/24 20:24 Insulin Glargine (*Bkc) 100 Units/Ml SUB-Q 35 units HS [facility] Administration Miconazole Nitrate 1 applic 07/31/24 09:00 08/05/24 09:59 Miconazole Nitrate 2% Cream 30 Gm Tube TOPICAL Not Given Q12HR THERESE * Home Med * 1.8 mg 07/31/24 21:00 Liraglutide [Victoza SUB-Q 08/30/24 20:59 2-Agustín] 0.6 Mg/0.1 HS [facility] Ml (18 Mg/3 Ml) Pen Injector Pantoprazole Sodium 40 mg 07/31/24 09:00 08/05/24 08:28 Pantoprazole 40 Mg Tablet PO 40 mg Q12HR [facility] Administration Prednisone 40 mg 08/03/24 11:55 08/05/24 08:28 Prednisone 20 Mg Tablet PO 40 mg DAILY@0800 [facility] Administration Sevelamer Carbonate 800 mg 07/31/24 08:00 08/05/24 12:09 Sevelamer Carbonate 800 Mg Tablet PO 800 mg TIDWM [facility] Administration Sitagliptin Phosphate 100 mg 07/31/24 09:00 07/31/24 08:56 Sitagliptin Phosphate 100 Mg Tablet PO 100 mg DAILY [facility] Administration Venlafaxine HCl 37.5 mg 08/03/24 11:50 08/05/24 08:28 Venlafaxine Hcl Xr 37.5 Mg Cap PO 37.5 mg DAILY@0800 [facility] Administration Vitamin B Complex/Folic Acid 1 cap 07/31/24 09:00 08/05/24 08:28 Vitamin B Cmplx/Vit C/Folic Ac 1 Capsule PO 1 cap DAILY THERESE Administration Radiology Results: ITS Impressions Chest X-Ray 08/04/24 08:18 Impression: Mild to moderate pulmonary edema pattern, right worse than left, versus possibly pneumonia. Correlate clinically. Stable cardiomegaly. Labs Labs: Laboratory Tests 08/05/24 05:30 08/05/24 05:30 Calcium 8.7 Magnesium 2.2 Total Bilirubin 0.9 AST 18 ALT 13 Alkaline Phosphatase 84 Total Protein 6.0 L Albumin 3.9
--- NOTE | 2024-08-05 11:58 | P.PNIM_ITS ---
Progress Note: A&P Assessment and Plan (1) Acute respiratory failure with hypoxia: Code(s): J96.01 - Acute respiratory failure with hypoxia Status: Acute Assessment and Plan: From fluid overload CXR showed pulm edema For dialysis today still on 1 liter oxygen If she continues to requires oxygen after dialysis will obtain cT chest to rule out pneumonia continue titrating oxygen (2) RSV infection: Qualifiers: RSV infection type: unspecified Qualified Code(s): B33.8 - Other sp ecified viral diseases Code(s): B33.8 - Other specified viral diseases Status: Acute Assessment and Plan: * Respiratory panel positive for RSV * Continue DuoNebs, Tessalon Perles, Mucinex * intial Chest x-ray negative * CXR today showed pulm edema however if oxygen requirement remains after dialysis then CT chest will be obtained to rule out pneumonia Prednisone 40mg daily x day 2/5days (3) ESRD (end stage renal disease) on dialysis: Code(s): N18.6 - End stage renal disease; Z99.2 - Dependence on renal dialysis Status: Chronic Assessment and Plan: continue dialysis Nephrology following (4) Type 2 diabetes mellitus: Qualifiers: Diabetes mellitus complication status: without complication Diabetes mellitus skilled nursing insulin use: without skilled nursing use Qualified Code(s): E11.9 - Type 2 diabetes mellitus without complications Code(s): E11.9 - Type 2 diabetes mellitus without complications Status: Chronic Assessment and Plan: * Blood sugars ranging 139-284 * Hgb A1C 7.1 * Accu checks AC/HS * Low-dose SSI ordered * Continue Lantus 35 units at bedtime * Will hold Victoza and sitagliptin while inpatient * hypoglycemic protocol in place * Diabetic diet ordered * monitor (5) Atrial fibrillation: Qualifiers: Atrial fibrillation type: unspecified Qualified Code(s): I48.91 - Unspecified atrial fibrillation Code(s): I48.91 - Unspecified atrial fibrillation Status: Chronic Assessment and Plan: * EKG showing AFib rate controlled * Not currently on any home medications??? * investigate (6) Anemia: Qualifiers: Anemia type: unspecified type Qualified Code(s): D64.9 - Anemia, unspecified Code(s): D64.9 - Anemia, unspecified Status: Chronic Assessment and Plan: Likely secondary to her end-stage renal disease * Hemoglobin 9.1 (7) Hypertension: Qualifiers: Hypertension type: unspecified Qualified Code(s): I10 - Essential (primary) hypertension Code(s): I10 - Essential (primary) hypertension Status: Chronic Assessment and Plan: * Low blood pressures resolved on Coreg monitor and adjust stable Plan Diabetic neuropathy Started on Venlafaxine monitor DVT prophylaxis on Sq Heparin PT/OT eval for discharge planning Subjective Date/time seen: 08/05/24 11:58 Interval history: Patient is on dialysis. The also diagnosed with RSV. Patient oxygen requirement increases possible due to RSV. Review of Systems Review of Systems: All systems reviewed & are unremarkable except as noted in HPI and below Constitutional: Constitutional: Reports as per HPI and Reports no additional constitutional complaints Eyes: Eyes: Reports as per HPI and Reports no additional eye complaints ENT: Reports system reviewed and no additional complaints, except as documented and Reports as per HPI Cardiovascular: Cardiovascular: Reports as per HPI and Reports no additional cardiovascular complaints Respiratory: Respiratory: Reports as per HPI and Reports no additional respiratory complaints Gastrointestinal: Gastrointestinal: Reports as per HPI and Reports no additional gastrointestinal complaints Genitourinary: Genitourinary: Reports no additional female genitourinary complaints and Reports as per HPI Musculoskeletal: Musculoskeletal: Reports no additional musculoskeletal complaints and Reports as per HPI Integumentary/Breasts: Skin/Breast: Reports system reviewed and no additional complaints, except as docu and Reports as per HPI Neurologic: Reports system reviewed and no additional complaints, except as documented and Reports as per HPI Psychiatric: Psychiatric: Reports no additional psychiatric complaints and Reports as per HPI Exam Narrative: General: In no acute distress Cardiac: Normal S1 and S2. No murmur, gallops or friction rubs, peripheral pulses intact. Respiratory: Rhonchi with mild expiratory wheezing bilaterally---R>L, , on 1L NC Gastrointestinal: soft, non-distended, non-tender, normoactive bowel sounds. :anuric on HD M-W-F Neuro: Alert and oriented x4 Const: General: comfortable and no acute distress Other: Elderly, female, ill-appearing HENMT: Face/Nose/Sinus: Normal nares present Mouth: Yes moist mucous membranes Eyes: General: appearance normal, both eyes and all related structures Sclera: sclerae normal Pupils: Equal, round and reactive pupils present EOM: EOMs intact bilaterally Resp: Other: Bibasilar crackles, + tachypnea without increased work of breathing Cardio: Rate: regular rate Rhythm: regular rhythm Other: S1-S2 present without murmur, rub, ectopy GI: Other: Abdomen soft, nondistended, nontender. Skin: General skin exam: normal color and no rashes or lesions noted Wounds: no wounds Neuro: Cranial nerves: Yes Equal, round and reactive pupils present Speech: normal speech Motor exam (neuro): 5/5 motor strength present throughout Sensory Exam: normal sensation Other: S1-S2 present without murmur, rub, ectopy Extrem: General: normal exam except as noted Other: +thrill and bruit to RUE fistula. old fistula to LUE. Psych: Mental Status: mental status grossly normal Affect: normal affect Other: Good insight and judgment, pleasant Objective Data Vital Signs Vital Signs: Vital Signs - 24 hr 08/04/24 12:00 08/04/24 14:00 08/04/24 15:25 Temperature 97.3 F L Pulse Rate 65 88 Respiratory Rate 16 Blood Pressure 146/74 H Pulse Oximetry 94 Oxygen Delivery Oxygen Flow Rate 2 08/04/24 15:25 08/04/24 15:43 08/04/24 15:45 Temperature 98.1 F Pulse Rate 69 67 67 Respiratory Rate 16 Blood Pressure 95/38 L 121/87 110/33 L Pulse Oximetry 100 Oxygen Delivery Oxygen Flow Rate 08/04/24 16:00 08/04/24 16:00 08/04/24 16:15 Temperature Pulse Rate 65 60 64 Respiratory Rate Blood Pressure 108/44 L 100/44 L Pulse Oximetry Oxygen Delivery Oxygen Flow Rate 08/04/24 16:30 08/04/24 16:45 08/04/24 17:00 Temperature Pulse Rate 69 73 73 Respiratory Rate Blood Pressure 94/50 L 107/49 L 103/48 L Pulse Oximetry Oxygen Delivery Oxygen Flow Rate 08/04/24 17:15 08/04/24 17:30 08/04/24 17:45 Temperature Pulse Rate 68 66 64 Respiratory Rate Blood Pressure 99/45 L 98/42 L 90/40 L Pulse Oximetry Oxygen Delivery Oxygen Flow Rate 08/04/24 18:00 08/04/24 18:15 08/04/24 18:30 Temperature Pulse Rate 74 66 70 Respiratory Rate Blood Pressure 100/48 L 110/45 L 107/45 L Pulse Oximetry Oxygen Delivery Oxygen Flow Rate 08/04/24 18:45 08/04/24 19:00 08/04/24 19:14 Temperature Pulse Rate 67 67 65 Respiratory Rate Blood Pressure 107/42 L 129/108 H 100/47 L Pulse Oximetry Oxygen Delivery Oxygen Flow Rate 08/04/24 19:28 08/04/24 20:00 08/04/24 20:00 Temperature 97.7 F Pulse Rate 66 69 Respiratory Rate 16 Blood Pressure 115/55 L Pulse Oximetry 100 100 Oxygen Delivery Nasal Cannula Oxygen Flow Rate 2 08/04/24 20:18 08/04/24 20:22 08/04/24 23:15 Temperature 98.4 F 97.1 F L Pulse Rate 78 85 62 Respiratory Rate 20 18 Blood Pressure 148/46 H Pulse Oximetry 100 96 Oxygen Delivery Oxygen Flow Rate 08/05/24 00:00 08/05/24 04:00 08/05/24 06:00 Temperature 97.5 F L Pulse Rate 67 66 69 Respiratory Rate 16 Blood Pressure 125/42 L Pulse Oximetry 95 Oxygen Delivery Oxygen Flow Rate 08/05/24 08:04 08/05/24 08:29 08/05/24 08:35 Temperature Pulse Rate 72 80 Respiratory Rate Blood Pressure Pulse Oximetry 93 Oxygen Delivery Nasal Cannula Oxygen Flow Rate 2 Intake/Output Intake/Output: Intake & Output 08/02/24 08/03/24 08/04/24 08/05/24 23:59 23:59 23:59 23:59 Intake Total 900 915 760 360 Output Total 150 1650 Balance 900 765 -890 360 Meds/Results Medications: Active Medications Generic Name Dose Route Start Last Admin Trade Name Johnathonq PRN Reason Stop Dose Admin Acetaminophen 650 mg 07/30/24 18:22 08/05/24 06:35 Acetaminophen 325 Mg Tablet PO 650 mg Q6H PRN Administration Mild Pain (1-3) or Fever Albuterol/Ipratropium 3 ml 07/30/24 18:22 08/03/24 15:52 Ipratropium 0.5 Mg/Albuterol Sulfate 2.5 Mg Ampul.Neb 3 Ml INHALATION 3 ml Q6HRT PRN Administration Shortness Of Breath Or Wheezing Atorvastatin Calcium 40 mg 07/31/24 09:00 08/05/24 08:30 Atorvastatin 40 Mg Tablet PO 40 mg DAILY THERESE Administration Benzocaine 1 lozenge 07/30/24 18:22 07/30/24 21:28 Benzocaine/Menthol (*Bkc) 18 Ea Lozenge PO 1 lozenge PRN PRN Administration Sore Throat Benzonatate 100 mg 07/30/24 18:22 07/30/24 21:27 Benzonatate 100 Mg Capsule PO 100 mg TID PRN Administration Cough Calcium Carbonate 600 mg 08/01/24 17:30 08/05/24 09:17 Calcium Carbonate (Tums) 500 Mg (200 Mg Elemental) PO 600 mg TID THERESE Administration Carvedilol 3.125 mg 08/02/24 21:00 08/05/24 08:29 Carvedilol 3.125 Mg Tablet PO 3.125 mg Q12HR THERESE Administration Cyanocobalamin 500 mcg 07/31/24 09:00 08/05/24 08:28 Cyanocobalamin 500 Mcg Tablet PO 500 mcg DAILY THERESE Administration Dextrose 12.5 gm 07/30/24 18:29 Dextrose 50% 25 Gm/50 Ml Syringe IV PUSH PRN PRN Hypoglycemia Protocol Dicyclomine HCl 10 mg 07/30/24 21:35 Dicyclomine Hcl 10 Mg Capsule PO BID PRN Abdominal Pain Ergocalciferol 50,000 units 08/02/24 09:00 08/02/24 09:04 Ergocalciferol 50,000 Units Capsule PO 50,000 units WEEKLY THERESE Administration Glucagon 1 mg 07/30/24 18:29 Glucagon For Inj 1 Mg Vial IM PRN PRN Hypoglycemia Protocol Glucose 15 gm 07/30/24 18:29 Glucose Oral Gel 15 Gm Of Glucse In 37.5 Gm Tube PO PRN PRN Hypoglycemia Protocol Guaifenesin 600 mg 07/30/24 21:00 08/05/24 08:30 Guaifenesin 12 Hr 600 Mg Tabcr PO 600 mg Q12HR THERESE Administration Heparin Sodium (Porcine) 5,000 units 08/03/24 14:00 08/05/24 05:28 Heparin Sodium 5,000 Units/Ml Vial SUB-Q 5,000 units Q8HR THERESE Administration Dextrose 1,000 mls @ 100 mls/hr 07/30/24 18:29 Dextrose 5% 1,000 Ml IVPB PRN PRN Hypoglycemia Protocol Albumin Human 50 mls @ 999 mls/hr 08/01/24 07:00 Albutein IVPB 08/31/24 06:59 Q10M PRN HYPOTENSION Insulin Aspart 2 - 5 units 07/31/24 08:00 08/05/24 09:59 Insulin Aspart (*Bkc) 100 Units/Ml SUB-Q Not Given TIDWM [facility] Protocol Insulin Aspart 1 - 2 units 08/01/24 22:20 08/04/24 20:22 Insulin Aspart (*Bkc) 100 Units/Ml SUB-Q Not Given HS [facility] Protocol Insulin Glargine 35 units 08/02/24 21:00 08/04/24 20:24 Insulin Glargine (*Bkc) 100 Units/Ml SUB-Q 35 units HS [facility] Administration Miconazole Nitrate 1 applic 07/31/24 09:00 08/05/24 09:59 Miconazole Nitrate 2% Cream 30 Gm Tube TOPICAL Not Given Q12HR [facility] * Home Med * 1.8 mg 07/31/24 21:00 Liraglutide [Victoza SUB-Q 08/30/24 20:59 2-Agustín] 0.6 Mg/0.1 HS [facility] Ml (18 Mg/3 Ml) Pen Injector Pantoprazole Sodium 40 mg 07/31/24 09:00 08/05/24 08:28 Pantoprazole 40 Mg Tablet PO 40 mg Q12HR THERESE Administration Prednisone 40 mg 08/03/24 11:55 08/05/24 08:28 Prednisone 20 Mg Tablet PO 40 mg DAILY@0800 [facility] Administration Sevelamer Carbonate 800 mg 07/31/24 08:00 08/05/24 08:28 Sevelamer Carbonate 800 Mg Tablet PO 800 mg TIDWM [facility] Administration Sitagliptin Phosphate 100 mg 07/31/24 09:00 07/31/24 08:56 Sitagliptin Phosphate 100 Mg Tablet PO 100 mg DAILY THERESE Administration Venlafaxine HCl 37.5 mg 08/03/24 11:50 08/05/24 08:28 Venlafaxine Hcl Xr 37.5 Mg Cap PO 37.5 mg DAILY@0800 [facility] Administration Vitamin B Complex/Folic Acid 1 cap 07/31/24 09:00 08/05/24 08:28 Vitamin B Cmplx/Vit C/Folic Ac 1 Capsule PO 1 cap DAILY THERESE Administration Radiology Results: ITS Impressions Chest X-Ray 08/04/24 08:18 Impression: Mild to moderate pulmonary edema pattern, right worse than left, versus possibly pneumonia. Correlate clinically. Stable cardiomegaly. Labs Labs: Laboratory Results - last 24 hr 08/04/24 08/04/24 08/05/24 11:45 20:17 05:30 WBC 8.7 RBC 2.79 L Hgb 9.0 L Hct 30.6 L MCV 109.7 H MCH 32.3 MCHC 29.4 L RDW 17.2 H Plt Count 114 L MPV 12.1 H Immature Gran % (Auto) 0.8 H Neut % (Auto) 87.7 H Lymph % (Auto) 6.7 L [place] % (Auto) 4.7 Eos % (Auto) 0.0 Baso % (Auto) 0.1 L Lymph # (Auto) 0.58 L [place] # (Auto) 0.4 Eos # (Auto) 0.0 Baso # (Auto) 0.0 Abs Immat Gran (auto) 0.07 H Absolute Neuts (auto) 7.6 H Absolute Nucleated RBC 0.030 H Nucleated RBC % 0.3 H Platelet Estimate Decreased Polychromasia 1+ Basophilic Stippling 1+ Anisocytosis 1+ Macrocytosis 1+ Ovalocytes 1+ [place] Cells 1+ Schistocytes None seen Sodium 137 Potassium 4.0 Chloride 100 Carbon Dioxide 29 Anion Gap 8 BUN 23 H D Creatinine 2.92 H Estim Creat Clear Calc Not Reportable Estimated GFR 16 L Glucose 149 H POC Capillary Glucose 197 H 142 H Calcium 8.7 Magnesium 2.2 Total Bilirubin 0.9 AST 18 ALT 13 Alkaline Phosphatase 84 Total Protein 6.0 L Albumin 3.9 08/05/24 08/05/24 08:13 11:31 WBC RBC Hgb Hct MCV MCH MCHC RDW Plt Count MPV Immature Gran % (Auto) Neut % (Auto) Lymph % (Auto) [place] % (Auto) Eos % (Auto) Baso % (Auto) Lymph # (Auto) [place] # (Auto) Eos # (Auto) Baso # (Auto) Abs Immat Gran (auto) Absolute Neuts (auto) Absolute Nucleated RBC Nucleated RBC % Platelet Estimate Polychromasia Basophilic Stippling Anisocytosis Macrocytosis Ovalocytes [place] Cells Schistocytes Sodium Potassium Chloride Carbon Dioxide Anion Gap BUN Creatinine Estim Creat Clear Calc Estimated GFR Glucose POC Capillary Glucose 134 H 143 H Calcium Magnesium Total Bilirubin AST ALT Alkaline Phosphatase Total Protein Albumin Quality VTE Prophylaxis VTE prophylaxis: mechanical ordered Hospitalist MIPS Advance Care Plan I have confirmed that the patient's Advanced Care Plan is present, code status is documented, or surrogate decision maker is listed in patient medical record.: Yes Medication Reconciliation I have utilized all available resources to obtain, update and review the patients current medications (includes all prescriptions, OTC, herbals, ca nnabis, and nutritional supplements).: Yes
[2024-08-05 16:57] LABS: Glucose Point of Care 222 mg/dl (65-105)
[2024-08-05] MEDS: INSULIN ASPART (*BKC) 100 UNITS/ML SUB-Q ×2 (17:27→21:31)
[2024-08-05] MEDS: MICONAZOLE NITRATE 2% CREAM 30 GM TUBE 1 APPLIC TOPICAL (21:15)
[2024-08-05] MEDS: INSULIN GLARGINE (*BKC) 100 UNITS/ML 35 UNITS SUB-Q (21:29)
[2024-08-05 21:48] LABS: Glucose Point of Care 205 mg/dl (65-105)
[2024-08-06] VITALS (35 sets, daily range): BP systolic 85–131; BP diastolic 31–94; PULSE 51–95; RESP 18–20; TEMP 36.4–37.3; O2SAT 87–98
[2024-08-06] MEDS: ACETAMINOPHEN 325 MG TABLET 650 MG PO ×2 (05:21→17:02)
[2024-08-06] MEDS: HEPARIN SODIUM 5,000 UNITS/ML VIAL 5000 UNITS SUB-Q ×3 (05:21→21:23)
[2024-08-06 05:41] LABS: Basophils Percent Auto 0.1 % (0.2-1.2); Hematocrit 32.6 % (37.0-47.0); Hemoglobin 9.5 g/dL (12.0-15.0); Immature Granulocyte Absolute 0.06 K/mm3 (0.00-0.031); Immature Granulocyte Percent A 0.6 % (0-0.5); Lymphocytes Absolute Auto 1.01 K/mm3 (0.9-3.2); Lymphocytes Percent Auto 10.4 % (18.3-44.2); Mean Corpuscular HGB Conc 29.1 g/dl (32-36); Mean Corpuscular Hemoglobin 32.3 pg (26-34); Mean Corpuscular Volume 110.9 fl (80-100); Mean Platelet Volume 12.3 fl (7.4-10.4); Monocytes Absolute Auto 0.9 K/mm3 (0.1-0.6); Monocytes Percent Auto 9.4 % (2.6-8.5); Neutrophils Absolute Auto 7.7 K/mm3 (1.3-6.7); Neutrophils Percent Auto 79.5 % (45.5-73.1); Nucleated Red Blood Cells Perc 0.4 % (0.0-0.2); Platelet Count Result 131 k/mm3 (150-375); Red Blood Count 2.94 M/mm3 (4.2-5.4); Red Cell Distribution Width 17.7 % (11.5-14.5); White Blood Count 9.7 K/mm3 (4.5-10.0)
[2024-08-06 06:14] LABS: Alanine Aminotransferase 13 U/L (6-35); Albumin Level 3.9 g/dL (3.5-5.1); Alkaline Phosphatase 96 U/L (38-126); Anion Gap 9 mmol/L (4-12); Aspartate Amino Transferase 17 U/L (14-36); Bilirubin,Total 1.1 mg/dL (0.2-1.3); Blood Urea Nitrogen 38 mg/dL (7-17); Carbon Dioxide 27 mmol/L (22-30); Chloride 97 mmol/L (98-107); Estimated Glomerular Filt Rate 9; Glucose 140 mg/dL (65-110); Potassium 4.3 mmol/L (3.4-5.0); Sodium 133 mmol/L (137-145)
[2024-08-06 06:56] LABS: Platelet Estimate Slightly Decreased (Adequate); Polychromasia 1+
[2024-08-06 06:57] LABS: Anisocytosis 1+; Basophilic Stippling 1+; Burr Cells 1+; Macrocytosis 1+ (NORMAL); Ovalocytes 1+; Schistocytes None Seen
[2024-08-06 08:50] LABS: Glucose Point of Care 98 mg/dl (65-105)
[2024-08-06] MEDS: VENLAFAXINE HCL XR 37.5 MG CAP PO (08:54)
[2024-08-06] MEDS: SEVELAMER CARBONATE 800 MG TABLET PO ×3 (08:54→17:57)
[2024-08-06] MEDS: predniSONE 20 MG TABLET 40 MG PO (08:54)
[2024-08-06] MEDS: CALCIUM CARBONATE (TUMS) 500 MG (200 MG ELEMENTAL) 600 MG PO ×3 (08:54→17:57)
[2024-08-06] MEDS: CYANOCOBALAMIN 500 MCG TABLET PO (08:54)
[2024-08-06] MEDS: guaiFENesin 12 HR 600 MG TABCR PO ×2 (08:54→21:23)
[2024-08-06] MEDS: ATORVASTATIN 40 MG TABLET PO (08:54)
[2024-08-06] MEDS: carvediloL 3.125 MG TABLET PO ×2 (08:54→21:23)
[2024-08-06] MEDS: PANTOPRAZOLE 40 MG TABLET PO ×2 (08:55→21:23)
[2024-08-06] MEDS: VITAMIN B CMPLX/VIT C/FOLIC AC 1 CAPSULE 1 CAP PO (08:55)
--- NOTE | 2024-08-06 10:49 | HOMEO2EVAL ---
Evaluation was performed at [facility] Home Oxygen Evaluation RC: Home Oxygen (O2) Evaluation Start: 08/06/24 09:53 Freq: ONCE Status: Active Protocol: RPE Activity Type Activity Date Activity User E-sign Co-sign Detail Recorded Client Recorded Date Recorded By Document 08/06/24 09:45 [email or web address] [email or web address] 08/06/24 10:49 DJO Document 08/06/24 09:50 [email or web address] [email or web address] 08/06/24 10:49 DJO Document 08/06/24 09:55 [email or web address] [email or web address] 08/06/24 10:49 DJO Document 08/06/24 10:00 [email or web address] [email or web address] 08/06/24 10:49 DJO Document 08/06/24 10:15 [email or web address] [email or web address] 08/06/24 10:49 DJO 08/06/24 08/06/24 08/06/24 09:45 09:50 09:55 Home O2 Evaluation [Oxygen] -Test Phase Resting Resting Resting -Oxygen Delivery Room Air Nasal Cannula Nasal Cannula -Oxygen Flow Rate (L/min) 1 2 [Pulse Oximetry] -Pulse Oximetry (90-100 %) 87 L 88 L 91 [Pulse Rate] -Pulse Rate (60-100 beats/min) 61 62 60 [Evaluation] -Activity Tolerance [Charges] -Evaluation Charges O2 Evaluation by Pulmonary 08/06/24 08/06/24 10:00 10:15 Home O2 Evaluation [Oxygen] -Test Phase Exercise Resting -Oxygen Delivery Nasal Cannula Nasal Cannula -Oxygen Flow Rate (L/min) 2 2 [Pulse Oximetry] -Pulse Oximetry (90-100 %) 90 91 [Pulse Rate] -Pulse Rate (60-100 beats/min) 88 62 [Evaluation] -Activity Tolerance Fair [Charges] -Evaluation Charges
--- NOTE | 2024-08-06 11:00 | PCRCNOTE ---
HOME O2 EVAL COMPLETE, 2L REST AND ACTIVITY. SET UP WITH [facility]. PHONE NUMBER [phone] TANK IN ROOM FOR DISCHARGE
[2024-08-06 11:51] LABS: Glucose Point of Care 76 mg/dl (65-105)
[2024-08-06] MEDS: SODIUM CHLORIDE 0.9% IV 1,000 ML 999 ML IV CONT (13:33)
--- NOTE | 2024-08-06 13:35 | PC.NURSE ---
Patient to dialysis per bed.
[2024-08-06] MEDS: ALBUMIN HUMAN 25% 12.5 GM/50ML 50 ML IVPB (13:46)
--- NOTE | 2024-08-06 14:01 | P.PNNP_ITS ---
Progress Note: A&P Assessment and Plan (1) End stage renal disease: Code(s): N18.6 - End stage renal disease Status: Chronic Assessment and Plan: * HD today * continue M/W/F dialysis schedule while hospitalized * follow electrolytes, volume status, and clearance (2) Hypoxia: Code(s): R09.02 - Hypoxemia Status: Acute Assessment and Plan: * as nted by EMS * 80% on room air * improved with 2L oxygen by nasal cannula * presumably due to mild pulmonary edema and RSV (as noted on admission) * no evidence of pneumonia by CXR * however, recent CT of chest notes right middle and lower lobe with fluid and mucus in the bronchi consistent with pneumonia. * start antibiotics? * wean supplemental oxygen as tolerated (3) RSV infection: Qualifiers: RSV infection type: unspecified Qualified Code(s): B33.8 - Other specified viral diseases Code(s): B33.8 - Other specified viral diseases Status: Acute Assessment and Plan: * tested positive for RSV on 07/30 in ER * reported onset of symptoms on 07/28 * CXR negative for pneumonia * continues supportive care: * Mucinex * Tessalon Perles p.r.n. * DuoNeb as needed * Tylenol (4) Atrial fibrillation: Qualifiers: Atrial fibrillation type: unspecified Qualified Code(s): I48.91 - Unspecified atrial fibrillation Code(s): I48.91 - Unspecified atrial fibrillation Status: Chronic Assessment and Plan: * paroxysmal * rate controlled * not on anticoagulation (due to hx of GI bleeding versus fall risk?) (5) Anemia: Qualifiers: Anemia type: unspecified type Qualified Code(s): D64.9 - Anemia, unspecified Code(s): D64.9 - Anemia, unspecified Status: Chronic Assessment and Plan: * related to ESRD * Epogen with HD * follow trend of H/H (6) Hypertension: Qualifiers: Hypertension type: unspecified Qualified Code(s): I10 - Essential (primary) hypertension Code(s): I10 - Essential (primary) hypertension Status: Chronic Assessment and Plan: * reasonable control * folloe hemodynamics (7) Type 2 diabetes mellitus: Qualifiers: Diabetes mellitus buttermaker continuous churn insulin use: without halfway use Diabetes mellitus complication status: without complication Qualified Code(s): E11.9 - Type 2 diabetes mellitus without complications Code(s): E11.9 - Type 2 diabetes mellitus without complications Status: Chronic Assessment and Plan: * follow accuchecks * glycemic control per hospitalists Will continue to follow. L Subjective Date/time seen: 08/06/24 14:01 Interval history: Follow-up for end stage renal disease on hemodialysis. Tolerating dialysis treatment at the time of my visit (seen on HD at 1:50PM); despite all interventions to date; still requiring supplemental oxygen to keep saturations at goal; no new issues/events overnight or earlier this morning. Exam 2 Narrative: General: elderly female in NAD Heart: normal S1 and S2; no rub Lungs: coarse breath sounds Abdomen: soft, nontender, nondistended, positive bowel sounds Extremities: no cyanosis or clubbing; no edema Skin: warm and intact Objective Data Vital Signs Vital Signs: Vital Signs Temp Pulse Resp BP Pulse Ox O2 Del Method O2 Flow Rate 08/06/24 14:00 51 L 94/44 L 08/06/24 13:46 70 130/94 H 08/06/24 13:33 98.5 F 65 18 96/41 L 08/06/24 13:33 3 08/06/24 12:04 63 08/06/24 10:15 62 91 Nasal Cannula 2 08/06/24 10:00 88 90 Nasal Cannula 2 08/06/24 09:55 60 91 Nasal Cannula 2 08/06/24 09:50 62 88 L Nasal Cannula 1 08/06/24 09:45 61 87 L Room Air 08/06/24 08:54 95 08/06/24 08:53 94 Nasal Cannula 2 08/06/24 08:05 66 08/06/24 05:20 97.5 F L 95 20 113/89 94 08/06/24 04:00 64 08/06/24 00:00 66 08/05/24 21:26 97 F L 72 20 119/49 L 99 08/05/24 21:14 74 08/05/24 20:00 68 08/05/24 20:00 100 Nasal Cannula 2 Intake/Output Intake/Output: Intake & Output 08/03/24 08/04/24 08/05/24 08/06/24 23:59 23:59 23:59 23:59 Intake Total 057 616 7395 480 Output Total 150 1650 50 Balance 765 -890 1077 430 Meds/Results Medications: Active Medications Generic Name Dose Route Start Last Admin Trade Name Freq PRN Reason Stop Dose Admin Acetaminophen 650 mg 07/30/24 18:22 08/06/24 17:02 Acetaminophen 325 Mg Tablet PO 650 mg Q6H PRN Administration Mild Pain (1-3) or Fever Albuterol/Ipratropium 3 ml 07/30/24 18:22 08/03/24 15:52 Ipratropium 0.5 Mg/Albuterol Sulfate 2.5 Mg Ampul.Neb 3 Ml INHALATION 3 ml Q6HRT PRN Administration Shortness Of Breath Or Wheezing Atorvastatin Calcium 40 mg 07/31/24 09:00 08/06/24 08:54 Atorvastatin 40 Mg Tablet PO 40 mg DAILY THERESE Administration Benzocaine 1 lozenge 07/30/24 18:22 07/30/24 21:28 Benzocaine/Menthol (*Bkc) 18 Ea Lozenge PO 1 lozenge PRN PRN Administration Sore Throat Benzonatate 100 mg 07/30/24 18:22 07/30/24 21:27 Benzonatate 100 Mg Capsule PO 100 mg TID PRN Administration Cough Calcium Carbonate 600 mg 08/01/24 17:30 08/06/24 12:21 Calcium Carbonate (Tums) 500 Mg (200 Mg Elemental) PO 600 mg TID THERESE Administration Carvedilol 3.125 mg 08/02/24 21:00 08/06/24 08:54 Carvedilol 3.125 Mg Tablet PO 3.125 mg Q12HR THERESE Administration Cyanocobalamin 500 mcg 07/31/24 09:00 08/06/24 08:54 Cyanocobalamin 500 Mcg Tablet PO 500 mcg DAILY THERESE Administration Dextrose 12.5 gm 07/30/24 18:29 Dextrose 50% 25 Gm/50 Ml Syringe IV PUSH PRN PRN Hypoglycemia Protocol Dicyclomine HCl 10 mg 07/30/24 21:35 Dicyclomine Hcl 10 Mg Capsule PO BID PRN Abdominal Pain Epoetin Son-epbx 10,000 units 08/06/24 18:35 Epoetin Son-Epbx 10,000 Units/Ml Vial IV PUSH 08/06/24 18:36 ONCE ONE Ergocalciferol 50,000 units 08/02/24 09:00 08/02/24 09:04 Ergocalciferol 50,000 Units Capsule PO 50,000 units WEEKLY THERESE Administration Glucagon 1 mg 07/30/24 18:29 Glucagon For Inj 1 Mg Vial IM PRN PRN Hypoglycemia Protocol Glucose 15 gm 07/30/24 18:29 Glucose Oral Gel 15 Gm Of Glucse In 37.5 Gm Tube PO PRN PRN Hypoglycemia Protocol Guaifenesin 600 mg 07/30/24 21:00 08/06/24 08:54 Guaifenesin 12 Hr 600 Mg Tabcr PO 600 mg Q12HR THERESE Administration Heparin Sodium (Porcine) 5,000 units 08/03/24 14:00 08/06/24 05:21 Heparin Sodium 5,000 Units/Ml Vial SUB-Q 5,000 units Q8HR THERESE Administration Dextrose 1,000 mls @ 100 mls/hr 07/30/24 18:29 Dextrose 5% 1,000 Ml IVPB PRN PRN Hypoglycemia Protocol Albumin Human 50 mls @ 999 mls/hr 08/01/24 07:00 Albutein IVPB 08/31/24 06:59 Q10M PRN HYPOTENSION Insulin Aspart 2 - 5 units 07/31/24 08:00 08/06/24 11:49 Insulin Aspart (*Bkc) 100 Units/Ml SUB-Q Not Given TIDWM [facility] Protocol Insulin Aspart 1 - 2 units 08/01/24 22:20 08/05/24 21:31 Insulin Aspart (*Bkc) 100 Units/Ml SUB-Q 1 units HS THERESE Administration Protocol Insulin Glargine 35 units 08/02/24 21:00 08/05/24 21:29 Insulin Glargine (*Bkc) 100 Units/Ml SUB-Q 35 units HS THERESE Administration Miconazole Nitrate 1 applic 08/06/24 11:52 Miconazole Nitrate 2% Cream 30 Gm Tube TOPICAL Q12HR PRN maceration * Home Med * 1.8 mg 07/31/24 21:00 Liraglutide [Victoza SUB-Q 08/30/24 20:59 2-Agustín] 0.6 Mg/0.1 HS THERESE Ml (18 Mg/3 Ml) Pen Injector Pantoprazole Sodium 40 mg 07/31/24 09:00 08/06/24 08:55 Pantoprazole 40 Mg Tablet PO 40 mg Q12HR THERESE Administration Prednisone 40 mg 08/03/24 11:55 08/06/24 08:54 Prednisone 20 Mg Tablet PO 40 mg DAILY@0800 THERESE Administration Sevelamer Carbonate 800 mg 07/31/24 08:00 08/06/24 12:21 Sevelamer Carbonate 800 Mg Tablet PO 800 mg TIDWM THERESE Administration Sitagliptin Phosphate 100 mg 07/31/24 09:00 07/31/24 08:56 Sitagliptin Phosphate 100 Mg Tablet PO 100 mg DAILY THERESE Administration Venlafaxine HCl 37.5 mg 08/03/24 11:50 08/06/24 08:54 Venlafaxine Hcl Xr 37.5 Mg Cap PO 37.5 mg DAILY@0800 THERESE Administration Vitamin B Complex/Folic Acid 1 cap 07/31/24 09:00 08/06/24 08:55 Vitamin B Cmplx/Vit C/Folic Ac 1 Capsule PO 1 cap DAILY THERESE Administration Radiology Results: ITS Impressions Chest X-Ray 08/04/24 08:18 Impression: Mild to moderate pulmonary edema pattern, right worse than left, versus possibly pneumonia. Correlate clinically. Stable cardiomegaly. Chest CTA 08/06/24 08:36 IMPRESSION: 1. No pulmonary embolism. Sensitivity decreased in the smaller subsegmental pulmonary arteries due to respiratory motion. 2. Right middle and lower lobe with fluid and mucus in the bronchi consistent with pneumonia. 3. Small bilateral pleural effusions. 4. 4.3 cm fusiform ascending thoracic aortic aneurysm. 5. 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 Labs Labs: Laboratory Tests 08/06/24 05:30 08/06/24 05:30 Calcium 9.0 Total Bilirubin 1.1 AST 17 ALT 13 Alkaline Phosphatase 96 Total Protein 6.0 L Albumin 3.9
--- NOTE | 2024-08-06 15:47 | PM.IMPN ---
Progress Note: A&P Assessment and Plan (1) Acute respiratory failure with hypoxia: Code(s): J96.01 - Acute respiratory failure with hypoxia Status: Acute Assessment and Plan: From fluid overload CXR showed pulm edema For dialysis today still on 1 liter oxygen If she continues to requires oxygen after dialysis will obtain cT chest to rule out pneumonia continue titrating oxygen (2) RSV infection: Qualifiers: RSV infection type: unspecified Qualified Code(s): B33.8 - Other specified viral diseases Code(s): B33.8 - Other specified viral diseases Status: Acute Assessment and Plan: Respiratory panel positive for RSV Continue DuoNebs, Tessalon Perles, Mucinex intial Chest x-ray negative CXR today showed pulm edema however if oxygen requirement remains after dialysis then CT chest will be obtained to rule out pneumonia Prednisone 40mg daily x day 2/5days (3) ESRD (end stage renal disease) on dialysis: Code(s): N18.6 - End stage renal disease; Z99.2 - Dependence on renal dialysis Status: Chronic Assessment and Plan: continue dialysis Nephrology following (4) Type 2 diabetes mellitus: Qualifiers: Diabetes mellitus complication status: without complication Diabetes mellitus terminal block assembler insulin use: without terminal block assembler use Qualified Code(s): E11.9 - Type 2 diabetes mellitus without complications Code(s): E11.9 - Type 2 diabetes mellitus without complications Status: Chronic Assessment and Plan: Blood sugars ranging 139-284 Hgb A1C 7.1 Accu checks AC/HS Low-dose SSI ordered Continue Lantus 35 units at bedtime Will hold Victoza and sitagliptin while inpatient hypoglycemic protocol in place Diabetic diet ordered monitor (5) Atrial fibrillation: Qualifiers: Atrial fibrillation type: unspecified Qualified Code(s): I48.91 - Unspecified atrial fibrillation Code(s): I48.91 - Unspecified atrial fibrillation Status: Chronic Assessment and Plan: EKG showing AFib rate controlled Not currently on any home medications??? investigate (6) Anemia: Qualifiers: Anemia type: unspecified type Qualified Code(s): D64.9 - Anemia, unspecified Code(s): D64.9 - Anemia, unspecified Status: Chronic Assessment and Plan: Likely secondary to her end-stage renal disease Hemoglobin 9.1 (7) Hypertension: Qualifiers: Hypertension type: unspecified Qualified Code(s): I10 - Essential (primary) hypertension Code(s): I10 - Essential (primary) hypertension Status: Chronic Assessment and Plan: Low blood pressures resolved on Coreg monitor and adjust stable Plan Diabetic neuropathy Started on Venlafaxine monitor DVT prophylaxis on Sq Heparin PT/OT eval for discharge planning Subjective Date/time seen: 08/06/24 15:47 Interval history: Patient saturation yesterday night dropped around 60 when patient was not wearing nasal cannula. Currently her saturation around 90% on 2-3 L nasal cannula. CTA ruled out pulmonary embolism. Possible demand in oxygen due to RSV infection. Patient will be discharged tomorrow since daughter is coming to night and want to discuss the discharge plan Review of Systems Review of Systems: All systems reviewed & are unremarkable except as noted in HPI and below Constitutional: Constitutional: Reports as per HPI and Reports no additional constitutional complaints Eyes: Eyes: Reports as per HPI and Reports no additional eye complaints ENT: Reports system reviewed and no additional complaints, except as documented and Reports as per HPI Cardiovascular: Cardiovascular: Reports as per HPI and Reports no additional cardiovascular complaints Respiratory: Respiratory: Reports as per HPI and Reports no additional respiratory complaints Gastrointestinal: Gastrointestinal: Reports as per HPI and Reports no additional gastrointestinal complaints Genitourinary: Genitourinary: Reports no additional female genitourinary complaints and Reports as per HPI Musculoskeletal: Musculoskeletal: Reports no additional musculoskeletal complaints and Reports as per HPI Integumentary/Breasts: Skin/Breast: Reports system reviewed and no additional complaints, except as docu and Reports as per HPI Neurologic: Reports system reviewed and no additional complaints, except as documented and Reports as per HPI Psychiatric: Psychiatric: Reports no additional psychiatric complaints and Reports as per HPI Exam Narrative: General: In no acute distress Cardiac: Normal S1 and S2. No murmur, gallops or friction rubs, peripheral pulses intact. Respiratory: Rhonchi with mild expiratory wheezing bilaterally---R>L, , on 1L NC Gastrointestinal: soft, non-distended, non-tender, normoactive bowel sounds. :anuric on HD M-W-F Neuro: Alert and oriented x4 Const: General: comfortable and no acute distress Other: Elderly, female, ill-appearing HENMT: Face/Nose/Sinus: Normal nares present Mouth: Yes moist mucous membranes Eyes: General: appearance normal, both eyes and all related structures Sclera: sclerae normal Pupils: Equal, round and reactive pupils present EOM: EOMs intact bilaterally Resp: Other: Bibasilar crackles, + tachypnea without increased work of breathing Cardio: Rate: regular rate Rhythm: regular rhythm Other: S1-S2 present without murmur, rub, ectopy GI: Other: Abdomen soft, nondistended, nontender. Skin: General skin exam: normal color and no rashes or lesions noted Wounds: no wounds Neuro: Cranial nerves: Yes Equal, round and reactive pupils present Speech: normal speech Motor exam (neuro): 5/5 motor strength present throughout Sensory Exam: normal sensation Other: S1-S2 present without murmur, rub, ectopy Extrem: General: normal exam except as noted Other: +thrill and bruit to RUE fistula. old fistula to LUE. Psych: Mental Status: mental status grossly normal Affect: normal affect Other: Good insight and judgment, pleasant Objective Data Vital Signs Vital Signs: Vital Signs - 24 hr 08/05/24 16:04 08/05/24 20:00 08/05/24 20:00 Temperature Pulse Rate 62 68 Respiratory Rate Blood Pressure Pulse Oximetry 100 Oxygen Delivery Nasal Cannula Oxygen Flow Rate 2 08/05/24 21:14 08/05/24 21:26 08/06/24 00:00 Temperature 97 F L Pulse Rate 74 72 66 Respiratory Rate 20 Blood Pressure 119/49 L Pulse Oximetry 99 Oxygen Delivery Oxygen Flow Rate 08/06/24 04:00 08/06/24 05:20 08/06/24 08:05 Temperature 97.5 F L Pulse Rate 64 95 66 Respiratory Rate 20 Blood Pressure 113/89 Pulse Oximetry 94 Oxygen Delivery Oxygen Flow Rate 08/06/24 08:53 08/06/24 08:54 08/06/24 09:45 Temperature Pulse Rate 95 61 Respiratory Rate Blood Pressure Pulse Oximetry 94 87 L Oxygen Delivery Nasal Cannula Room Air Oxygen Flow Rate 2 08/06/24 09:50 08/06/24 09:55 08/06/24 10:00 Temperature Pulse Rate 62 60 88 Respiratory Rate Blood Pressure Pulse Oximetry 88 L 91 90 Oxygen Delivery Nasal Cannula Nasal Cannula Nasal Cannula Oxygen Flow Rate 1 2 2 08/06/24 10:15 08/06/24 12:04 Temperature Pulse Rate 62 63 Respiratory Rate Blood Pressure Pulse Oximetry 91 Oxygen Delivery Nasal Cannula Oxygen Flow Rate 2 Intake/Output Intake/Output: Intake & Output 08/03/24 08/04/24 08/05/24 08/06/24 23:59 23:59 23:59 23:59 Intake Total 145 375 1866 480 Output Total 150 1650 50 Balance 765 -890 1077 430 Meds/Results Medications: Active Medications Generic Name Dose Route Start Last Admin Trade Name Freq PRN Reason Stop Dose Admin Acetaminophen 650 mg 07/30/24 18:22 08/06/24 05:21 Acetaminophen 325 Mg Tablet PO 650 mg Q6H PRN Administration Mild Pain (1-3) or Fever Albuterol/Ipratropium 3 ml 07/30/24 18:22 08/03/24 15:52 Ipratropium 0.5 Mg/Albuterol Sulfate 2.5 Mg Ampul.Neb 3 Ml INHALATION 3 ml Q6HRT PRN Administration Shortness Of Breath Or Wheezing Atorvastatin Calcium 40 mg 07/31/24 09:00 08/06/24 08:54 Atorvastatin 40 Mg Tablet PO 40 mg DAILY THERESE Administration Benzocaine 1 lozenge 07/30/24 18:22 07/30/24 21:28 Benzocaine/Menthol (*Bkc) 18 Ea Lozenge PO 1 lozenge PRN PRN Administration Sore Throat Benzonatate 100 mg 07/30/24 18:22 07/30/24 21:27 Benzonatate 100 Mg Capsule PO 100 mg TID PRN Administration Cough Calcium Carbonate 600 mg 08/01/24 17:30 08/06/24 12:21 Calcium Carbonate (Tums) 500 Mg (200 Mg Elemental) PO 600 mg TID THERESE Administration Carvedilol 3.125 mg 08/02/24 21:00 08/06/24 08:54 Carvedilol 3.125 Mg Tablet PO 3.125 mg Q12HR THERESE Administration Cyanocobalamin 500 mcg 07/31/24 09:00 08/06/24 08:54 Cyanocobalamin 500 Mcg Tablet PO 500 mcg DAILY THERESE Administration Dextrose 12.5 gm 07/30/24 18:29 Dextrose 50% 25 Gm/50 Ml Syringe IV PUSH PRN PRN Hypoglycemia Protocol Dicyclomine HCl 10 mg 07/30/24 21:35 Dicyclomine Hcl 10 Mg Capsule PO BID PRN Abdominal Pain Epoetin Son-epbx 10,000 units 08/06/24 18:35 Epoetin Son-Epbx 10,000 Units/Ml Vial IV PUSH 08/06/24 18:36 ONCE ONE Ergocalciferol 50,000 units 08/02/24 09:00 08/02/24 09:04 Ergocalciferol 50,000 Units Capsule PO 50,000 units WEEKLY THERESE Administration Glucagon 1 mg 07/30/24 18:29 Glucagon For Inj 1 Mg Vial IM PRN PRN Hypoglycemia Protocol Glucose 15 gm 07/30/24 18:29 Glucose Oral Gel 15 Gm Of Glucse In 37.5 Gm Tube PO PRN PRN Hypoglycemia Protocol Guaifenesin 600 mg 07/30/24 21:00 08/06/24 08:54 Guaifenesin 12 Hr 600 Mg Tabcr PO 600 mg Q12HR THERESE Administration Heparin Sodium (Porcine) 5,000 units 08/03/24 14:00 08/06/24 05:21 Heparin Sodium 5,000 Units/Ml Vial SUB-Q 5,000 units Q8HR THERESE Administration Dextrose 1,000 mls @ 100 mls/hr 07/30/24 18:29 Dextrose 5% 1,000 Ml IVPB PRN PRN Hypoglycemia Protocol Albumin Human 50 mls @ 999 mls/hr 08/01/24 07:00 Albutein IVPB 08/31/24 06:59 Q10M PRN HYPOTENSION Insulin Aspart 2 - 5 units 07/31/24 08:00 08/06/24 11:49 Insulin Aspart (*Bkc) 100 Units/Ml SUB-Q Not Given TIDWM THERESE Protocol Insulin Aspart 1 - 2 units 08/01/24 22:20 08/05/24 21:31 Insulin Aspart (*Bkc) 100 Units/Ml SUB-Q 1 units HS THERESE Administration Protocol Insulin Glargine 35 units 08/02/24 21:00 08/05/24 21:29 Insulin Glargine (*Bkc) 100 Units/Ml SUB-Q 35 units HS THERESE Administration Miconazole Nitrate 1 applic 08/06/24 11:52 Miconazole Nitrate 2% Cream 30 Gm Tube TOPICAL Q12HR PRN maceration * Home Med * 1.8 mg 07/31/24 21:00 Liraglutide [Victoza SUB-Q 08/30/24 20:59 2-Agustín] 0.6 Mg/0.1 HS THERESE Ml (18 Mg/3 Ml) Pen Injector Pantoprazole Sodium 40 mg 07/31/24 09:00 08/06/24 08:55 Pantoprazole 40 Mg Tablet PO 40 mg Q12HR THERESE Administration Prednisone 40 mg 08/03/24 11:55 08/06/24 08:54 Prednisone 20 Mg Tablet PO 40 mg DAILY@0800 THERESE Administration Sevelamer Carbonate 800 mg 07/31/24 08:00 08/06/24 12:21 Sevelamer Carbonate 800 Mg Tablet PO 800 mg TIDWM THERESE Administration Sitagliptin Phosphate 100 mg 07/31/24 09:00 07/31/24 08:56 Sitagliptin Phosphate 100 Mg Tablet PO 100 mg DAILY THERESE Administration Venlafaxine HCl 37.5 mg 08/03/24 11:50 08/06/24 08:54 Venlafaxine Hcl Xr 37.5 Mg Cap PO 37.5 mg DAILY@0800 THERESE Administration Vitamin B Complex/Folic Acid 1 cap 07/31/24 09:00 08/06/24 08:55 Vitamin B Cmplx/Vit C/Folic Ac 1 Capsule PO 1 cap DAILY THERESE Administration Radiology Results: ITS Impressions Chest X-Ray 08/04/24 08:18 Impression: Mild to moderate pulmonary edema pattern, right worse than left, versus possibly pneumonia. Correlate clinically. Stable cardiomegaly. Chest CTA 08/06/24 08:36 IMPRESSION: 1. No pulmonary embolism. Sensitivity decreased in the smaller subsegmental pulmonary arteries due to respiratory motion. 2. Right middle and lower lobe with fluid and mucus in the bronchi consistent with pneumonia. 3. Small bilateral pleural effusions. 4. 4.3 cm fusiform ascending thoracic aortic aneurysm. 5. 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 Labs Labs: Laboratory Results - last 24 hr 08/05/24 08/05/24 08/06/24 16:49 21:27 05:30 WBC 9.7 RBC 2.94 L Hgb 9.5 L Hct 32.6 L MCV 110.9 H MCH 32.3 MCHC 29.1 L RDW 17.7 H Plt Count 131 L MPV 12.3 H Immature Gran % (Auto) 0.6 H Neut % (Auto) 79.5 H Lymph % (Auto) 10.4 L [place] % (Auto) 9.4 H Eos % (Auto) 0.0 Baso % (Auto) 0.1 L Lymph # (Auto) 1.01 [place] # (Auto) 0.9 H Eos # (Auto) 0.0 Baso # (Auto) 0.0 Abs Immat Gran (auto) 0.06 H Absolute Neuts (auto) 7.7 H Absolute Nucleated RBC 0.040 H Nucleated RBC % 0.4 H Platelet Estimate Slightly decreased Polychromasia 1+ Basophilic Stippling 1+ Anisocytosis 1+ Macrocytosis 1+ Ovalocytes 1+ Wallace Cells 1+ Schistocytes None seen Sodium 133 L Potassium 4.3 Chloride 97 L Carbon Dioxide 27 Anion Gap 9 BUN 38 H D Creatinine 4.66 H Estim Creat Clear Calc Not Reportable Estimated GFR 9 L Glucose 140 H POC Capillary Glucose 222 H 205 H Calcium 9.0 Total Bilirubin 1.1 AST 17 ALT 13 Alkaline Phosphatase 96 Total Protein 6.0 L Albumin 3.9 08/06/24 08/06/24 08:48 11:48 WBC RBC Hgb Hct MCV MCH MCHC RDW Plt Count MPV Immature Gran % (Auto) Neut % (Auto) Lymph % (Auto) [place] % (Auto) Eos % (Auto) Baso % (Auto) Lymph # (Auto) [place] # (Auto) Eos # (Auto) Baso # (Auto) Abs Immat Gran (auto) Absolute Neuts (auto) Absolute Nucleated RBC Nucleated RBC % Platelet Estimate Polychromasia Basophilic Stippling Anisocytosis Macrocytosis Ovalocytes Wallace Cells Schistocytes Sodium Potassium Chloride Carbon Dioxide Anion Gap BUN Creatinine Estim Creat Clear Calc Estimated GFR Glucose POC Capillary Glucose 98 76 Calcium Total Bilirubin AST ALT Alkaline Phosphatase Total Protein Albumin Quality VTE Prophylaxis VTE prophylaxis: mechanical ordered Hospitalist MIPS Advance Care Plan I have confirmed that the patient's Advanced Care Plan is present, code status is documented, or surrogate decision maker is listed in patient medical record.: Yes Medication Reconciliation I have utilized all available resources to obtain, update and review the patients current medications (includes all prescriptions, OTC, herbals, cannabis, and nutritional supplements).: Yes
[2024-08-06] MEDS: EPOETIN ALFA-EPBX 10,000 UNITS/ML VIAL 10000 UNITS IV PUSH (17:21)
[2024-08-06 18:11] LABS: Glucose Point of Care 87 mg/dl (65-105)
[2024-08-06] MEDS: INSULIN GLARGINE (*BKC) 100 UNITS/ML 20 UNITS SUB-Q (21:33)
[2024-08-06 21:54] LABS: Glucose Point of Care 99 mg/dl (65-105)
[2024-08-07] VITALS (7 sets, daily range): BP systolic 103–125; BP diastolic 40–72; PULSE 55–101; RESP 16–21; TEMP 36.2–37; O2SAT 92–100
[2024-08-07] MEDS: ACETAMINOPHEN 325 MG TABLET 650 MG PO ×2 (05:04→20:40)
[2024-08-07] MEDS: HEPARIN SODIUM 5,000 UNITS/ML VIAL 5000 UNITS SUB-Q ×3 (05:04→23:04)
[2024-08-07 05:55] LABS: Basophils Percent Auto 0.2 % (0.2-1.2); Hematocrit 32.1 % (37.0-47.0); Hemoglobin 9.3 g/dL (12.0-15.0); Immature Granulocyte Absolute 0.07 K/mm3 (0.00-0.031); Immature Granulocyte Percent A 0.7 % (0-0.5); Lymphocytes Absolute Auto 1.15 K/mm3 (0.9-3.2); Lymphocytes Percent Auto 11.5 % (18.3-44.2); Mean Corpuscular Hemoglobin 32.3 pg (26-34); Mean Corpuscular Volume 111.5 fl (80-100); Mean Platelet Volume 11.9 fl (7.4-10.4); Monocytes Absolute Auto 0.9 K/mm3 (0.1-0.6); Monocytes Percent Auto 9.4 % (2.6-8.5); Neutrophils Absolute Auto 7.8 K/mm3 (1.3-6.7); Neutrophils Percent Auto 78.2 % (45.5-73.1); Nucleated Red Blood Cells Perc 0.8 % (0.0-0.2); Platelet Count Result 116 k/mm3 (150-375); Red Blood Count 2.88 M/mm3 (4.2-5.4); Red Cell Distribution Width 17.9 % (11.5-14.5)
[2024-08-07 06:24] LABS: Alanine Aminotransferase 13 U/L (6-35); Albumin Level 3.9 g/dL (3.5-5.1); Alkaline Phosphatase 74 U/L (38-126); Anion Gap 9 mmol/L (4-12); Aspartate Amino Transferase 21 U/L (14-36); Blood Urea Nitrogen 22 mg/dL (7-17); Calcium 8.5 mg/dL (8.4-10.2); Carbon Dioxide 31 mmol/L (22-30); Chloride 95 mmol/L (98-107); Estimated Glomerular Filt Rate 18; Glucose 75 mg/dL (65-110); Potassium 3.9 mmol/L (3.4-5.0); Sodium 135 mmol/L (137-145)
[2024-08-07 06:44] LABS: Platelet Estimate Decreased (Adequate)
[2024-08-07 06:45] LABS: Macrocytosis 2+ (NORMAL)
[2024-08-07 06:49] LABS: Polychromasia 1+
[2024-08-07 06:50] LABS: Anisocytosis 1+; Basophilic Stippling 1+; Schistocytes None Seen
[2024-08-07 08:53] LABS: Glucose Point of Care 64 mg/dl (65-105)
[2024-08-07 09:07] LABS: Glucose Point of Care 89 mg/dl (65-105)
[2024-08-07] MEDS: CALCIUM CARBONATE (TUMS) 500 MG (200 MG ELEMENTAL) 600 MG PO ×3 (09:12→17:23)
[2024-08-07] MEDS: ATORVASTATIN 40 MG TABLET PO (09:12)
[2024-08-07] MEDS: predniSONE 20 MG TABLET 40 MG PO (09:12)
[2024-08-07] MEDS: CYANOCOBALAMIN 500 MCG TABLET PO (09:12)
[2024-08-07] MEDS: SEVELAMER CARBONATE 800 MG TABLET PO ×3 (09:12→17:23)
[2024-08-07] MEDS: carvediloL 3.125 MG TABLET PO ×2 (09:13→20:40)
[2024-08-07] MEDS: VENLAFAXINE HCL XR 37.5 MG CAP PO (09:13)
[2024-08-07] MEDS: guaiFENesin 12 HR 600 MG TABCR PO ×2 (09:14→20:40)
[2024-08-07] MEDS: VITAMIN B CMPLX/VIT C/FOLIC AC 1 CAPSULE 1 CAP PO (09:14)
[2024-08-07] MEDS: PANTOPRAZOLE 40 MG TABLET PO ×2 (09:14→20:40)
[2024-08-07 11:57] LABS: Glucose Point of Care 106 mg/dl (65-105)
--- NOTE | 2024-08-07 13:23 | P.PNNP_ITS ---
Progress Note: A&P Assessment and Plan (1) End stage renal disease: Code(s): N18.6 - End stage renal disease Status: Chronic Assessment and Plan: * HD tomorrow * continue M/W/F dialysis schedule while hospitalized * follow electrolytes, volume status, and clearance (2) Altered mental status: Code(s): R41.82 - Altered mental status, unspecified Status: Acute Assessment and Plan: * appears to wax and wane * CT of head negative * minimize sedative medications * due to hypoxia(?) * follow mentation (3) Hypoxia: Code(s): R09.02 - Hypoxemia Status: Acute Assessment and Plan: * as nted by EMS * 80% on room air * improved with 2L oxygen by nasal cannula * presumably due to mild pulmonary edema and RSV (as noted on admission) * no evidence of pneumonia by CXR * however, recent CT of chest notes right middle and lower lobe with fluid and mucus in the bronchi consistent with pneumonia. * start antibiotics? * wean supplemental oxygen as tolerated (4) RSV infection: Qualifiers: RSV infection type: unspecified Qualified Code(s): B33.8 - Other specified viral diseases Code(s): B33.8 - Other specified viral diseases Status: Acute Assessment and Plan: * tested positive for RSV on 07/30 in ER * reported onset of symptoms on 07/28 * CXR negative for pneumonia * continues supportive care: * Mucinex * Tessalon Perles p.r.n. * DuoNeb as needed * Tylenol (5) Atrial fibrillation: Qualifiers: Atrial fibrillation type: unspecified Qualified Code(s): I48.91 - Unspecified atrial fibrillation Code(s): I48.91 - Unspecified atrial fibrillation Status: Chronic Assessment and Plan: * paroxysmal * rate controlled * not on anticoagulation (due to hx of GI bleeding versus fall risk?) (6) Anemia: Qualifiers: Anemia type: unspecified type Qualified Code(s): D64.9 - Anemia, unspecified Code(s): D64.9 - Anemia, unspecified Status: Chronic Assessment and Plan: * related to ESRD * Epogen with HD * follow trend of H/H (7) Hypertension: Qualifiers: Hypertension type: unspecified Qualified Code(s): I10 - Essential (primary) hypertension Code(s): I10 - Essential (primary) hypertension Status: Chronic Assessment and Plan: * reasonable control * folloe hemodynamics (8) Type 2 diabetes mellitus: Qualifiers: Diabetes mellitus chcf insulin use: without terminal manager use Diabetes mellitus complication status: without complication Qualified Code(s): E11.9 - Type 2 diabetes mellitus without complications Code(s): E11.9 - Type 2 diabetes mellitus without complications Status: Chronic Assessment and Plan: * follow accuchecks * glycemic control per hospitalists Will continue to follow. L Subjective Date/time seen: 08/07/24 13:23 Interval history: Follow-up for end stage renal disease on hemodialysis. Tolerated dialysis treatment yesterday without any issues or problems; noted issues with fluctuating mental status as noted by family and nursing staff; still requiring supplemental oxygen as well; no acute distress noted. Exam 2 Narrative: General: elderly female in NAD Heart: normal S1 and S2; no rub Lungs: coarse breath sounds Abdomen: soft, nontender, nondistended, positive bowel sounds Extremities: no cyanosis or clubbing; no edema Skin: no rash Objective Data Vital Signs Vital Signs: Vital Signs Temp Pulse Resp BP Pulse Ox O2 Del Method O2 Flow Rate 08/07/24 11:00 97.1 F L 55 L 16 105/40 L 100 08/07/24 09:15 93 Nasal Cannula 2 08/07/24 09:13 81 08/07/24 05:06 98.6 F 81 20 122/56 L 93 08/06/24 21:23 72 08/06/24 20:55 99.1 F 72 18 111/66 98 08/06/24 20:12 94 Nasal Cannula 2 08/06/24 20:00 94 Nasal Cannula 2 08/06/24 18:49 95 08/06/24 17:38 98.2 F 61 20 125/70 08/06/24 17:24 59 L 105/45 L 08/06/24 17:15 88 85/56 L Intake/Output Intake/Output: Intake & Output 08/04/24 08/05/24 08/06/24 08/07/24 23:59 23:59 23:59 23:59 Intake Total 760 1077 960 490 Output Total 1650 916 Balance -890 1077 44 490 Meds/Results Medications: Active Medications Generic Name Dose Route Start Last Admin Trade Name Freq PRN Reason Stop Dose Admin Acetaminophen 650 mg 07/30/24 18:22 08/07/24 05:04 Acetaminophen 325 Mg Tablet PO 650 mg Q6H PRN Administration Mild Pain (1-3) or Fever Albuterol/Ipratropium 3 ml 07/30/24 18:22 08/03/24 15:52 Ipratropium 0.5 Mg/Albuterol Sulfate 2.5 Mg Ampul.Neb 3 Ml INHALATION 3 ml Q6HRT PRN Administration Shortness Of Breath Or Wheezing Atorvastatin Calcium 40 mg 07/31/24 09:00 08/07/24 09:12 Atorvastatin 40 Mg Tablet PO 40 mg DAILY THERESE Administration Benzocaine 1 lozenge 07/30/24 18:22 07/30/24 21:28 Benzocaine/Menthol (*Bkc) 18 Ea Lozenge PO 1 lozenge PRN PRN Administration Sore Throat Benzonatate 100 mg 07/30/24 18:22 07/30/24 21:27 Benzonatate 100 Mg Capsule PO 100 mg TID PRN Administration Cough Calcium Carbonate 600 mg 08/01/24 17:30 08/07/24 12:50 Calcium Carbonate (Tums) 500 Mg (200 Mg Elemental) PO 600 mg TID THERESE Administration Carvedilol 3.125 mg 08/02/24 21:00 08/07/24 09:13 Carvedilol 3.125 Mg Tablet PO 3.125 mg Q12HR THERESE Administration Cyanocobalamin 500 mcg 07/31/24 09:00 08/07/24 09:12 Cyanocobalamin 500 Mcg Tablet PO 500 mcg DAILY THERESE Administration Dextrose 12.5 gm 07/30/24 18:29 Dextrose 50% 25 Gm/50 Ml Syringe IV PUSH PRN PRN Hypoglycemia Protocol Dicyclomine HCl 10 mg 07/30/24 21:35 Dicyclomine Hcl 10 Mg Capsule PO BID PRN Abdominal Pain Ergocalciferol 50,000 units 08/02/24 09:00 08/02/24 09:04 Ergocalciferol 50,000 Units Capsule PO 50,000 units WEEKLY THERESE Administration Glucagon 1 mg 07/30/24 18:29 Glucagon For Inj 1 Mg Vial IM PRN PRN Hypoglycemia Protocol Glucose 15 gm 07/30/24 18:29 Glucose Oral Gel 15 Gm Of Glucse In 37.5 Gm Tube PO PRN PRN Hypoglycemia Protocol Guaifenesin 600 mg 07/30/24 21:00 08/07/24 09:14 Guaifenesin 12 Hr 600 Mg Tabcr PO 600 mg Q12HR THERESE Administration Heparin Sodium (Porcine) 5,000 units 08/03/24 14:00 08/07/24 14:16 Heparin Sodium 5,000 Units/Ml Vial SUB-Q 5,000 units Q8HR THERESE Administration Dextrose 1,000 mls @ 100 mls/hr 07/30/24 18:29 Dextrose 5% 1,000 Ml IVPB PRN PRN Hypoglycemia Protocol Albumin Human 50 mls @ 999 mls/hr 08/01/24 07:00 08/06/24 13:46 Albutein IVPB 08/31/24 06:59 999 mls/hr Q10M PRN Administration HYPOTENSION Insulin Aspart 2 - 5 units 07/31/24 08:00 08/07/24 12:53 Insulin Aspart (*Bkc) 100 Units/Ml SUB-Q Not Given TIDWM [facility]END[facility] Protocol Insulin Aspart 1 - 2 units 08/01/24 22:20 08/06/24 21:11 Insulin Aspart (*Bkc) 100 Units/Ml SUB-Q Not Given HS [facility] Protocol Insulin Glargine 35 units 08/02/24 21:00 08/06/24 21:30 Insulin Glargine (*Bkc) 100 Units/Ml SUB-Q Not Given HS [facility] TO [facility] Miconazole Nitrate 1 applic 08/06/24 11:52 Miconazole Nitrate 2% Cream 30 Gm Tube TOPICAL Q12HR PRN maceration * Home Med * 1.8 mg 07/31/24 21:00 Liraglutide [Victoza SUB-Q 08/30/24 20:59 2-Agustín] 0.6 Mg/0.1 HS PENDING S[facility] TO [facility] Ml (18 Mg/3 Ml) Pen Injector Pantoprazole Sodium 40 mg 07/31/24 09:00 08/07/24 09:14 Pantoprazole 40 Mg Tablet PO 40 mg Q12HR THERESE Administration Prednisone 40 mg 08/03/24 11:55 08/07/24 09:12 Prednisone 20 Mg Tablet PO 40 mg DAILY@0800 HTERESE Administration Sevelamer Carbonate 800 mg 07/31/24 08:00 08/07/24 12:48 Sevelamer Carbonate 800 Mg Tablet PO 800 mg TIDWM THERESE Administration Sitagliptin Phosphate 100 mg 07/31/24 09:00 07/31/24 08:56 Sitagliptin Phosphate 100 Mg Tablet PO 100 mg DAILY THERESE Administration Venlafaxine HCl 37.5 mg 08/03/24 11:50 08/07/24 09:13 Venlafaxine Hcl Xr 37.5 Mg Cap PO 37.5 mg DAILY@0800 THERESE Administration Vitamin B Complex/Folic Acid 1 cap 07/31/24 09:00 08/07/24 09:14 Vitamin B Cmplx/Vit C/Folic Ac 1 Capsule PO 1 cap DAILY THERESE Administration Radiology Results: ITS Impressions Chest X-Ray 08/04/24 08:18 Impression: Mild to moderate pulmonary edema pattern, right worse than left, versus possibly pneumonia. Correlate clinically. Stable cardiomegaly. Chest CTA 08/06/24 08:36 IMPRESSION: 1. No pulmonary embolism. Sensitivity decreased in the smaller subsegmental pulmonary arteries due to respiratory motion. 2. Right middle and lower lobe with fluid and mucus in the bronchi consistent with pneumonia. 3. Small bilateral pleural effusions. 4. 4.3 cm fusiform ascending thoracic aortic aneurysm. 5. 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 Head CT 08/07/24 12:33 IMPRESSION: 1. Normal aging brain. No acute intracranial process. 2. Fluid/mucus in some of the paranasal sinuses consistent with acute sinusitis. Lumbar Spine CT 08/07/24 12:38 IMPRESSION: 1. Mild lumbar spondylosis. Labs Labs: Laboratory Tests 08/07/24 05:34 08/07/24 05:34 Calcium 8.5 Total Bilirubin 1.0 AST 21 ALT 13 Alkaline Phosphatase 74 Total Protein 6.0 L Albumin 3.9
--- NOTE | 2024-08-07 14:56 | P.PNIM_ITS ---
Progress Note: A&P Assessment and Plan (1) Acute respiratory failure with hypoxia: Code(s): J96.01 - Acute respiratory failure with hypoxia Status: Acute Assessment and Plan: From fluid overload CXR showed pulm edema For dialysis today still on 1 liter oxygen If she continues to requires oxygen after dialysis will obtain cT chest to rule out pneumonia continue titrating oxygen (2) RSV infection: Qualifiers: RSV infection type: unspecified Qualified Code(s): B33.8 - Other sp ecified viral diseases Code(s): B33.8 - Other specified viral diseases Status: Acute Assessment and Plan: * Respiratory panel positive for RSV * Continue DuoNebs, Tessalon Perles, Mucinex * intial Chest x-ray negative * CXR today showed pulm edema however if oxygen requirement remains after dialysis then CT chest will be obtained to rule out pneumonia Prednisone 40mg daily x day 2/5days (3) ESRD (end stage renal disease) on dialysis: Code(s): N18.6 - End stage renal disease; Z99.2 - Dependence on renal dialysis Status: Chronic Assessment and Plan: continue dialysis Nephrology following (4) Type 2 diabetes mellitus: Qualifiers: Diabetes mellitus complication status: without complication Diabetes mellitus correction insulin use: without correction use Qualified Code(s): E11.9 - Type 2 diabetes mellitus without complications Code(s): E11.9 - Type 2 diabetes mellitus without complications Status: Chronic Assessment and Plan: * Blood sugars ranging 139-284 * Hgb A1C 7.1 * Accu checks AC/HS * Low-dose SSI ordered * Continue Lantus 35 units at bedtime * Will hold Victoza and sitagliptin while inpatient * hypoglycemic protocol in place * Diabetic diet ordered * monitor (5) Atrial fibrillation: Qualifiers: Atrial fibrillation type: unspecified Qualified Code(s): I48.91 - Unspecified atrial fibrillation Code(s): I48.91 - Unspecified atrial fibrillation Status: Chronic Assessment and Plan: * EKG showing AFib rate controlled * Not currently on any home medications??? * investigate (6) Anemia: Qualifiers: Anemia type: unspecified type Qualified Code(s): D64.9 - Anemia, unspecified Code(s): D64.9 - Anemia, unspecified Status: Chronic Assessment and Plan: Likely secondary to her end-stage renal disease * Hemoglobin 9.1 (7) Hypertension: Qualifiers: Hypertension type: unspecified Qualified Code(s): I10 - Essential (primary) hypertension Code(s): I10 - Essential (primary) hypertension Status: Chronic Assessment and Plan: * Low blood pressures resolved on Coreg monitor and adjust stable (8) Metabolic encephalopathy: Code(s): G93.41 - Metabolic encephalopathy Status: Acute Assessment and Plan: Currently patient on dialysis CT head negative MRI brain ordered Possibly toxin versus infectious process Recently diagnosed hepatitis B infection No evidence of recent administration of anxiolytics or sedatives Hepatitis B panel ordered Plan Diabetic neuropathy Started on Venlafaxine monitor DVT prophylaxis on Sq Heparin PT/OT eval for discharge planning Subjective Date/time seen: 08/07/24 14:56 Interval history: Patient is confused but able to say where she is at,including the year and month. Head CT scan shows no acute process. Ordered MRI of the brain. Her malou ghter was present during the evaluation. She reported patient was recently diagnosed with hepatitis-B. Ordered Hepatitis B panel. neuro checks q 4 hrs. Also her daughter reports the patient is DNR. Review of Systems Review of Systems: All systems reviewed & are unremarkable except as noted in HPI and below Constitutional: Constitutional: Reports as per HPI and Reports no additional constitutional complaints Eyes: Eyes: Reports as per HPI and Reports no additional eye complaints ENT: Reports system reviewed and no additional complaints, except as documented and Reports as per HPI Cardiovascular: Cardiovascular: Reports as per HPI and Reports no additional cardiovascular complaints Respiratory: Respiratory: Reports as per HPI and Reports no additional respiratory complaints Gastrointestinal: Gastrointestinal: Reports as per HPI and Reports no additional gastrointestinal complaints Genitourinary: Genitourinary: Reports no additional female genitourinary complaints and Reports as per HPI Musculoskeletal: Musculoskeletal: Reports no additional musculoskeletal complaints and Reports as per HPI Integumentary/Breasts: Skin/Breast: Reports system reviewed and no additional complaints, except as docu and Reports as per HPI Neurologic: Reports system reviewed and no additional complaints, except as documented and Reports as per HPI Psychiatric: Psychiatric: Reports no additional psychiatric complaints and Reports as per HPI Exam Narrative: General: In no acute distress Cardiac: Normal S1 and S2. No murmur, gallops or friction rubs, peripheral pulses intact. Respiratory: Rhonchi with mild expiratory wheezing bilaterally---R>L, , on 1L NC Gastrointestinal: soft, non-distended, non-tender, normoactive bowel sounds. :anuric on HD M-W-F Neuro: Alert and oriented x4 Const: General: comfortable and no acute distress Other: Elderly, female, ill-appearing HENMT: Face/Nose/Sinus: Normal nares present Mouth: Yes moist mucous membranes Eyes: General: appearance normal, both eyes and all related structures Sclera: sclerae normal Pupils: Equal, round and reactive pupils present EOM: EOMs intact bilaterally Resp: Other: Bibasilar crackles, + tachypnea without increased work of breathing Cardio: Rate: regular rate Rhythm: regular rhythm Other: S1-S2 present without murmur, rub, ectopy GI: Other: Abdomen soft, nondistended, nontender. Skin: General skin exam: normal color and no rashes or lesions noted Wounds: no wounds Neuro: Cranial nerves: Yes Equal, round and reactive pupils present Speech: normal speech Motor exam (neuro): 5/5 motor strength present throughout Sensory Exam: normal sensation Other: S1-S2 present without murmur, rub, ectopy Extrem: General: normal exam except as noted Other: +thrill and bruit to RUE fistula. old fistula to LUE. Psych: Mental Status: mental status grossly normal Affect: normal affect Other: Good insight and judgment, pleasant Objective Data Vital Signs Vital Signs: Vital Signs - 24 hr 08/06/24 15:00 08/06/24 15:15 08/06/24 15:30 Temperature Pulse Rate 62 65 67 Respiratory Rate Blood Pressure 131/65 115/32 L 119/43 L Pulse Oximetry Oxygen Delivery Oxygen Flow Rate Fraction of Inspired Oxygen 08/06/24 15:45 08/06/24 16:00 08/06/24 16:15 Temperature Pulse Rate 63 67 65 Respiratory Rate Blood Pressure 126/34 L 109/49 L 110/52 L Pulse Oximetry Oxygen Delivery Oxygen Flow Rate Fraction of Inspired Oxygen 08/06/24 16:30 08/06/24 16:45 08/06/24 17:00 Temperature Pulse Rate 61 66 91 Respiratory Rate Blood Pressure 112/39 L 116/39 L 91/59 L Pulse Oximetry Oxygen Delivery Oxygen Flow Rate Fraction of Inspired Oxygen 08/06/24 17:15 08/06/24 17:24 08/06/24 17:38 Temperature 98.2 F Pulse Rate 88 59 L 61 Respiratory Rate 20 Blood Pressure 85/56 L 105/45 L 125/70 Pulse Oximetry Oxygen Delivery Oxygen Flow Rate Fraction of Inspired Oxygen 08/06/24 18:49 08/06/24 20:00 08/06/24 20:12 Temperature Pulse Rate Respiratory Rate Blood Pressure Pulse Oximetry 95 94 94 Oxygen Delivery Nasal Cannula Nasal Cannula Oxygen Flow Rate 2 2 Fraction of Inspired Oxygen 28 08/06/24 20:55 08/06/24 21:23 08/07/24 05:06 Temperature 99.1 F 98.6 F Pulse Rate 72 72 81 Respiratory Rate 18 20 Blood Pressure 111/66 122/56 L Pulse Oximetry 98 93 Oxygen Delivery Oxygen Flow Rate Fraction of Inspired Oxygen 08/07/24 09:13 08/07/24 09:15 08/07/24 11:00 Temperature 97.1 F L Pulse Rate 81 55 L Respiratory Rate 16 Blood Pressure 105/40 L Pulse Oximetry 93 100 Oxygen Delivery Nasal Cannula Oxygen Flow Rate 2 Fraction of Inspired Oxygen Intake/Output Intake/Output: Intake & Output 08/04/24 08/05/24 08/06/24 08/07/24 23:59 23:59 23:59 23:59 Intake Total 760 1077 960 270 Output Total 1650 916 Balance -890 1077 44 270 Meds/Results Medications: Active Medications Generic Name Dose Route Start Last Admin Trade Name Freq PRN Reason Stop Dose Admin Acetaminophen 650 mg 07/30/24 18:22 08/07/24 05:04 Acetaminophen 325 Mg Tablet PO 650 mg Q6H PRN Administration Mild Pain (1-3) or Fever Albuterol/Ipratropium 3 ml 07/30/24 18:22 08/03/24 15:52 Ipratropium 0.5 Mg/Albuterol Sulfate 2.5 Mg Ampul.Neb 3 Ml INHALATION 3 ml Q6HRT PRN Administration Shortness Of Breath Or Wheezing Atorvastatin Calcium 40 mg 07/31/24 09:00 08/07/24 09:12 Atorvastatin 40 Mg Tablet PO 40 mg DAILY THERESE Administration Benzocaine 1 lozenge 07/30/24 18:22 07/30/24 21:28 Benzocaine/Menthol (*Bkc) 18 Ea Lozenge PO 1 lozenge PRN PRN Administration Sore Throat Benzonatate 100 mg 07/30/24 18:22 07/30/24 21:27 Benzonatate 100 Mg Capsule PO 100 mg TID PRN Administration Cough Calcium Carbonate 600 mg 08/01/24 17:30 08/07/24 12:50 Calcium Carbonate (Tums) 500 Mg (200 Mg Elemental) PO 600 mg TID THERESE Administration Carvedilol 3.125 mg 08/02/24 21:00 08/07/24 09:13 Carvedilol 3.125 Mg Tablet PO 3.125 mg Q12HR THERESE Administration Cyanocobalamin 500 mcg 07/31/24 09:00 08/07/24 09:12 Cyanocobalamin 500 Mcg Tablet PO 500 mcg DAILY THERESE Administration Dextrose 12.5 gm 07/30/24 18:29 Dextrose 50% 25 Gm/50 Ml Syringe IV PUSH PRN PRN Hypoglycemia Protocol Dicyclomine HCl 10 mg 07/30/24 21:35 Dicyclomine Hcl 10 Mg Capsule PO BID PRN Abdominal Pain Ergocalciferol 50,000 units 08/02/24 09:00 08/02/24 09:04 Ergocalciferol 50,000 Units Capsule PO 50,000 units WEEKLY THERESE Administration Glucagon 1 mg 07/30/24 18:29 Glucagon For Inj 1 Mg Vial IM PRN PRN Hypoglycemia Protocol Glucose 15 gm 07/30/24 18:29 Glucose Oral Gel 15 Gm Of Glucse In 37.5 Gm Tube PO PRN PRN Hypoglycemia Protocol Guaifenesin 600 mg 07/30/24 21:00 08/07/24 09:14 Guaifenesin 12 Hr 600 Mg Tabcr PO 600 mg Q12HR THERESE Administration Heparin Sodium (Porcine) 5,000 units 08/03/24 14:00 08/07/24 14:16 Heparin Sodium 5,000 Units/Ml Vial SUB-Q 5,000 units Q8HR THERESE Administration Dextrose 1,000 mls @ 100 mls/hr 07/30/24 18:29 Dextrose 5% 1,000 Ml IVPB PRN PRN Hypoglycemia Protocol Albumin Human 50 mls @ 999 mls/hr 08/01/24 07:00 08/06/24 13:46 Albutein IVPB 08/31/24 06:59 999 mls/hr Q10M PRN Administration HYPOTENSION Insulin Aspart 2 - 5 units 07/31/24 08:00 08/07/24 12:53 Insulin Aspart (*Bkc) 100 Units/Ml SUB-Q Not Given TIDWM [facility] Protocol Insulin Aspart 1 - 2 units 08/01/24 22:20 08/06/24 21:11 Insulin Aspart (*Bkc) 100 Units/Ml SUB-Q Not Given HS [facility] Protocol Insulin Glargine 35 units 08/02/24 21:00 08/06/24 21:30 Insulin Glargine (*Bkc) 100 Units/Ml SUB-Q Not Given HS [facility] Miconazole Nitrate 1 applic 08/06/24 11:52 Miconazole Nitrate 2% Cream 30 Gm Tube TOPICAL Q12HR PRN maceration * Home Med * 1.8 mg 07/31/24 21:00 Liraglutide [Victoza SUB-Q 08/30/24 20:59 2-Agustín] 0.6 Mg/0.1 [facility] Ml (18 Mg/3 Ml) Pen Injector Pantoprazole Sodium 40 mg 07/31/24 09:00 08/07/24 09:14 Pantoprazole 40 Mg Tablet PO 40 mg Q12HR THERESE Administration Prednisone 40 mg 08/03/24 11:55 08/07/24 09:12 Prednisone 20 Mg Tablet PO 40 mg DAILY@0800 [facility] Administration Sevelamer Carbonate 800 mg 07/31/24 08:00 08/07/24 12:48 Sevelamer Carbonate 800 Mg Tablet PO 800 mg TIDWM [facility] Administration Sitagliptin Phosphate 100 mg 07/31/24 09:00 07/31/24 08:56 Sitagliptin Phosphate 100 Mg Tablet PO 100 mg DAILY THERESE Administration Venlafaxine HCl 37.5 mg 08/03/24 11:50 08/07/24 09:13 Venlafaxine Hcl Xr 37.5 Mg Cap PO 37.5 mg DAILY@0800 [facility] Administration Vitamin B Complex/Folic Acid 1 cap 07/31/24 09:00 08/07/24 09:14 Vitamin B Cmplx/Vit C/Folic Ac 1 Capsule PO 1 cap DAILY THERESE Administration Radiology Results: ITS Impressions Chest X-Ray 08/04/24 08:18 Impression: Mild to moderate pulmonary edema pattern, right worse than left, versus possibly pneumonia. Correlate clinically. Stable cardiomegaly. Chest CTA 08/06/24 08:36 IMPRESSION: 1. No pulmonary embolism. Sensitivity decreased in the smaller subsegmental pulmonary arteries due to respiratory motion. 2. Right middle and lower lobe with fluid and mucus in the bronchi consistent with pneumonia. 3. Small bilateral pleural effusions. 4. 4.3 cm fusiform ascending thoracic aortic aneurysm. 5. 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 Head CT 08/07/24 12:33 IMPRESSION: 1. Normal aging brain. No acute intracranial process. 2. Fluid/mucus in some of the paranasal sinuses consistent with acute sinusitis. Lumbar Spine CT 08/07/24 12:38 IMPRESSION: 1. Mild lumbar spondylosis. Labs Labs: Laboratory Results - last 24 hr 08/06/24 08/06/24 08/07/24 18:08 20:57 05:34 WBC 10.0 RBC 2.88 L Hgb 9.3 L Hct 32.1 L MCV 111.5 H MCH 32.3 MCHC 29.0 L RDW 17.9 H Plt Count 116 L MPV 11.9 H Immature Gran % (Auto) 0.7 H Neut % (Auto) 78.2 H Lymph % (Auto) 11.5 L [place] % (Auto) 9.4 H Eos % (Auto) 0.0 Baso % (Auto) 0.2 Lymph # (Auto) 1.15 [place] # (Auto) 0.9 H Eos # (Auto) 0.0 Baso # (Auto) 0.0 Abs Immat Gran (auto) 0.07 H Absolute Neuts (auto) 7.8 H Absolute Nucleated RBC 0.080 H Nucleated RBC % 0.8 H Platelet Estimate Decreased Polychromasia 1+ Basophilic Stippling 1+ Anisocytosis 1+ Macrocytosis 2+ Schistocytes None seen Sodium 135 L Potassium 3.9 Chloride 95 L Carbon Dioxide 31 H Anion Gap 9 BUN 22 H D Creatinine 2.53 H Estim Creat Clear Calc Not Reportable Estimated GFR 18 L Glucose 75 POC Capillary Glucose 87 99 Calcium 8.5 Total Bilirubin 1.0 AST 21 ALT 13 Alkaline Phosphatase 74 Total Protein 6.0 L Albumin 3.9 08/07/24 08/07/24 08/07/24 08:44 09:05 11:48 WBC RBC Hgb Hct MCV MCH MCHC RDW Plt Count MPV Immature Gran % (Auto) Neut % (Auto) Lymph % (Auto) [place] % (Auto) Eos % (Auto) Baso % (Auto) Lymph # (Auto) [place] # (Auto) Eos # (Auto) Baso # (Auto) Abs Immat Gran (auto) Absolute Neuts (auto) Absolute Nucleated RBC Nucleated RBC % Platelet Estimate Polychromasia Basophilic Stippling Anisocytosis Macrocytosis Schistocytes Sodium Potassium Chloride Carbon Dioxide Anion Gap BUN Creatinine Estim Creat Clear Calc Estimated GFR Glucose POC Capillary Glucose 64 L 89 106 H Calcium Total Bilirubin AST ALT Alkaline Phosphatase Total Protein Albumin Quality VTE Prophylaxis VTE prophylaxis: mechanical ordered Hospitalist MIPS Advance Care Plan I have confirmed that the patient's Advanced Care Plan is present, code status is documented, or surrogate decision maker is listed in patient medical record.: Yes Medication Reconciliation I have utilized all available resources to obtain, update and review the patients current medications (includes all prescriptions, OTC, herbals, cannabis, and nutritional supplements).: Yes
[2024-08-07 16:40] LABS: Ammonia 14 umol/L (9-30)
[2024-08-07 17:14] LABS: Hepatitis B Surface Antigen Negative (Negative)
[2024-08-07 17:19] LABS: Hepatitis B Core IgM Result Negative (Negative)
[2024-08-07 17:26] LABS: Glucose Point of Care 95 mg/dl (65-105)
[2024-08-07 17:58] LABS: Hepatitis B Surface Anti Res Indeterminate
[2024-08-07 18:32] LABS: Folic Acid > 20.0 ng/mL (2.76->20); Vitamin B12 > 1000.0 pg/mL (239-931)
[2024-08-07 21:48] LABS: Glucose Point of Care 111 mg/dl (65-105)
--- NOTE | 2024-08-07 23:21 | PC.NURSE ---
Held HS dose of lantus per Leila Mitchell
[2024-08-08] VITALS (23 sets, daily range): BP systolic 99–157; BP diastolic 34–106; PULSE 66–110; RESP 18–20; TEMP 36.5–37; O2SAT 92–100; BMI 28.0
[2024-08-08] MEDS: HEPARIN SODIUM 5,000 UNITS/ML VIAL 5000 UNITS SUB-Q ×3 (05:39→21:49)
[2024-08-08 06:33] LABS: Basophils Percent Auto 0.1 % (0.2-1.2); Hematocrit 31.9 % (37.0-47.0); Hemoglobin 9.1 g/dL (12.0-15.0); Immature Granulocyte Percent A 0.8 % (0-0.5); Immature Platelet Fraction Pct 8.8 % (0.9-11.2); Lymphocytes Absolute Auto 1.11 K/mm3 (0.9-3.2); Lymphocytes Percent Auto 8.6 % (18.3-44.2); Mean Corpuscular HGB Conc 28.5 g/dl (32-36); Mean Corpuscular Hemoglobin 31.9 pg (26-34); Mean Corpuscular Volume 111.9 fl (80-100); Mean Platelet Volume 12.1 fl (7.4-10.4); Monocytes Absolute Auto 1.1 K/mm3 (0.1-0.6); Monocytes Percent Auto 8.7 % (2.6-8.5); Neutrophils Absolute Auto 10.5 K/mm3 (1.3-6.7); Neutrophils Percent Auto 81.8 % (45.5-73.1); Nucleated Red Blood Cells Perc 0.6 % (0.0-0.2); Platelet Count Result 128 k/mm3 (150-375); Red Blood Count 2.85 M/mm3 (4.2-5.4); Red Cell Distribution Width 17.7 % (11.5-14.5); White Blood Count 12.9 K/mm3 (4.5-10.0)
[2024-08-08 06:50] LABS: Alanine Aminotransferase 13 U/L (6-35); Albumin Level 3.6 g/dL (3.5-5.1); Alkaline Phosphatase 80 U/L (38-126); Anion Gap 9 mmol/L (4-12); Aspartate Amino Transferase 18 U/L (14-36); Bilirubin,Total 1.1 mg/dL (0.2-1.3); Blood Urea Nitrogen 38 mg/dL (7-17); Calcium 8.6 mg/dL (8.4-10.2); Carbon Dioxide 31 mmol/L (22-30); Chloride 93 mmol/L (98-107); Estimated Glomerular Filt Rate 11; Glucose 75 mg/dL (65-110); Potassium 4.6 mmol/L (3.4-5.0); Sodium 133 mmol/L (137-145)
[2024-08-08 07:06] LABS: Anisocytosis 2+; Basophilic Stippling 1+; Platelet Estimate Decreased (Adequate)
[2024-08-08 07:07] LABS: Schistocytes None Seen
[2024-08-08 08:17] LABS: Glucose Point of Care 70 mg/dl (65-105)
[2024-08-08] MEDS: HEPARIN SODIUM 1,000 UNITS/ML VIAL 1000 UNITS IV PUSH (08:49)
[2024-08-08] MEDS: ALBUMIN HUMAN 25% 25 GM/100 ML 100 ML IVPB (08:51)
--- NOTE | 2024-08-08 11:05 | P.PNNP_ITS ---
Progress Note: A&P Assessment and Plan (1) End stage renal disease: Code(s): N18.6 - End stage renal disease Status: Chronic Assessment and Plan: * HD today * continue M/W/F dialysis schedule while hospitalized * follow electrolytes, volume status, and clearance (2) Altered mental status: Code(s): R41.82 - Altered mental status, unspecified Status: Acute Assessment and Plan: * appears to wax and wane * CT of head negative * minimize sedative medications * STOP venlafaxine as this was added recently (08/03) for presumed diabetic/neuropathic feet pain... * MRI of brain today * TSH/RPR/Vitamin B12 okay * due to hypoxia(?) * Neurology consulted (3) Hypoxia: Code(s): R09.02 - Hypoxemia Status: Acute Assessment and Plan: * as nted by EMS * 80% on room air * improved with 2L oxygen by nasal cannula * presumably due to mild pulmonary edema and RSV (as noted on admission) * no evidence of pneumonia by CXR * however, recent CT of chest notes right middle and lower lobe with fluid and mucus in the bronchi consistent with pneumonia. * start antibiotics? * wean supplemental oxygen as tolerated (4) RSV infection: Qualifiers: RSV infection type: unspecified Qualified Code(s): B33.8 - Other specified viral diseases Code(s): B33.8 - Other specified viral diseases Status: Acute Assessment and Plan: * tested positive for RSV on 07/30 in ER * reported onset of symptoms on 07/28 * CXR negative for pneumonia * continues supportive care: * Mucinex * Tessalon Perles p.r.n. * DuoNeb as needed * Tylenol (5) Atrial fibrillation: Qualifiers: Atrial fibrillation type: unspecified Qualified Code(s): I48.91 - Unspecified atrial fibrillation Code(s): I48.91 - Unspecified atrial fibrillation Status: Chronic Assessment and Plan: * paroxysmal * rate controlled * not on anticoagulation (due to hx of GI bleeding versus fall risk?) (6) Anemia: Qualifiers: Anemia type: unspecified type Qualified Code(s): D64.9 - Anemia, unspecified Code(s): D64.9 - Anemia, unspecified Status: Chronic Assessment and Plan: * related to ESRD * Epogen with HD * follow trend of H/H (7) Hypertension: Qualifiers: Hypertension type: unspecified Qualified Code(s): I10 - Essential (primary) hypertension Code(s): I10 - Essential (primary) hypertension Status: Chronic Assessment and Plan: * reasonable control * folloe hemodynamics (8) Type 2 diabetes mellitus: Qualifiers: Diabetes mellitus complication status: without complication Diabetes mellitus moth exterminator insulin use: without care home use Qualified Code(s): E11.9 - Type 2 diabetes mellitus without complications Code(s): E11.9 - Type 2 diabetes mellitus without complications Status: Chronic Assessment and Plan: * follow accuchecks * glycemic control per hospitalists Will continue to follow. L Subjective Date/time seen: 08/08/24 11:05 Interval history: Follow-up for end stage renal disease on hemodialysis. Tolerating dialysis treatment at the time of my visit (seen on HD at 10:55AM); she continues to waxing/waning fluctuations in her mental status (and she seems to be aware of it as well); noted Neurology consultation and plan for MRI today; still requiring supplemental oxygen as well. Exam 2 Narrative: General: elderly female in NAD Heart: normal S1 and S2; no rub Lungs: coarse breath sounds Abdomen: soft, nontender, nondistended, positive bowel sounds Extremities: no cyanosis or clubbing; no edema Skin: no nodules Objective Data Vital Signs Vital Signs: Vital Signs Temp Pulse Resp BP Pulse Ox O2 Flow Rate 08/08/24 11:00 70 108/34 L 08/08/24 10:45 71 154/51 H 08/08/24 10:30 74 120/69 08/08/24 10:15 74 99/55 L 08/08/24 10:00 75 134/35 L 08/08/24 09:45 72 134/44 L 08/08/24 09:30 67 125/46 L 08/08/24 09:15 68 99/82 L 08/08/24 09:00 69 117/52 L 08/08/24 08:49 106 H 130/85 08/08/24 08:49 2 08/08/24 08:26 97.7 F 66 20 138/45 L 100 08/08/24 05:31 97.8 F 110 H 18 121/51 L 92 08/07/24 20:40 67 08/07/24 20:34 97.8 F 67 18 125/41 L 96 Intake/Output Intake/Output: Intake & Output 08/05/24 08/06/24 08/07/24 08/08/24 23:59 23:59 23:59 23:59 Intake Total 1077 960 730 400 Output Total 916 Balance 1077 44 730 400 Meds/Results Medications: Active Medications Generic Name Dose Route Start Last Admin Trade Name Freq PRN Reason Stop Dose Admin Acetaminophen 650 mg 07/30/24 18:22 08/08/24 11:26 Acetaminophen 325 Mg Tablet PO 650 mg Q6H PRN Administration Mild Pain (1-3) or Fever Albuterol/Ipratropium 3 ml 07/30/24 18:22 08/03/24 15:52 Ipratropium 0.5 Mg/Albuterol Sulfate 2.5 Mg Ampul.Neb 3 Ml INHALATION 3 ml Q6HRT PRN Administration Shortness Of Breath Or Wheezing Atorvastatin Calcium 40 mg 07/31/24 09:00 08/07/24 09:12 Atorvastatin 40 Mg Tablet PO 40 mg DAILY THERESE Administration Benzocaine 1 lozenge 07/30/24 18:22 07/30/24 21:28 Benzocaine/Menthol (*Bkc) 18 Ea Lozenge PO 1 lozenge PRN PRN Administration Sore Throat Benzonatate 100 mg 07/30/24 18:22 07/30/24 21:27 Benzonatate 100 Mg Capsule PO 100 mg TID PRN Administration Cough Calcium Carbonate 600 mg 08/01/24 17:30 08/07/24 17:23 Calcium Carbonate (Tums) 500 Mg (200 Mg Elemental) PO 600 mg TID THERESE Administration Carvedilol 3.125 mg 08/02/24 21:00 08/07/24 20:40 Carvedilol 3.125 Mg Tablet PO 3.125 mg Q12HR THERESE Administration Cyanocobalamin 500 mcg 07/31/24 09:00 08/07/24 09:12 Cyanocobalamin 500 Mcg Tablet PO 500 mcg DAILY THERESE Administration Dextrose 12.5 gm 07/30/24 18:29 Dextrose 50% 25 Gm/50 Ml Syringe IV PUSH PRN PRN Hypoglycemia Protocol Dicyclomine HCl 10 mg 07/30/24 21:35 Dicyclomine Hcl 10 Mg Capsule PO BID PRN Abdominal Pain Epoetin Son-epbx 10,000 units 08/08/24 18:10 08/08/24 11:39 Epoetin Son-Epbx 10,000 Units/Ml Vial IV PUSH 08/08/24 18:11 10,000 units ONCE ONE Administration Ergocalciferol 50,000 units 08/02/24 09:00 08/02/24 09:04 Ergocalciferol 50,000 Units Capsule PO 50,000 units WEEKLY THERESE Administration Glucagon 1 mg 07/30/24 18:29 Glucagon For Inj 1 Mg Vial IM PRN PRN Hypoglycemia Protocol Glucose 15 gm 07/30/24 18:29 Glucose Oral Gel 15 Gm Of Glucse In 37.5 Gm Tube PO PRN PRN Hypoglycemia Protocol Guaifenesin 600 mg 07/30/24 21:00 08/07/24 20:40 Guaifenesin 12 Hr 600 Mg Tabcr PO 600 mg Q12HR THERESE Administration Heparin Sodium (Porcine) 5,000 units 08/03/24 14:00 08/08/24 05:39 Heparin Sodium 5,000 Units/Ml Vial SUB-Q 5,000 units Q8HR THERESE Administration Dextrose 1,000 mls @ 100 mls/hr 07/30/24 18:29 Dextrose 5% 1,000 Ml IVPB PRN PRN Hypoglycemia Protocol Albumin Human 50 mls @ 999 mls/hr 08/01/24 07:00 08/06/24 13:46 Albutein IVPB 08/31/24 06:59 999 mls/hr Q10M PRN Administration HYPOTENSION Insulin Aspart 2 - 5 units 07/31/24 08:00 08/08/24 08:15 Insulin Aspart (*Bkc) 100 Units/Ml SUB-Q Not Given TIDWM [facility] Protocol Insulin Aspart 1 - 2 units 08/01/24 22:20 08/07/24 21:06 Insulin Aspart (*Bkc) 100 Units/Ml SUB-Q Not Given HS [facility] Protocol Insulin Glargine 35 units 08/02/24 21:00 08/07/24 23:21 Insulin Glargine (*Bkc) 100 Units/Ml SUB-Q Not Given HS [facility] Miconazole Nitrate 1 applic 08/06/24 11:52 Miconazole Nitrate 2% Cream 30 Gm Tube TOPICAL Q12HR PRN maceration * Home Med * 1.8 mg 07/31/24 21:00 Liraglutide [Victoza SUB-Q 08/30/24 20:59 2-Agustín] 0.6 Mg/0.1 HS THERESE Ml (18 Mg/3 Ml) Pen Injector Pantoprazole Sodium 40 mg 07/31/24 09:00 08/07/24 20:40 Pantoprazole 40 Mg Tablet PO 40 mg Q12HR THERESE Administration Prednisone 40 mg 08/03/24 11:55 08/07/24 09:12 Prednisone 20 Mg Tablet PO 40 mg DAILY@0800 THERESE Administration Sevelamer Carbonate 800 mg 07/31/24 08:00 08/07/24 17:23 Sevelamer Carbonate 800 Mg Tablet PO 800 mg TIDWM THERESE Administration Sitagliptin Phosphate 100 mg 07/31/24 09:00 07/31/24 08:56 Sitagliptin Phosphate 100 Mg Tablet PO 100 mg DAILY THERESE Administration Venlafaxine HCl 37.5 mg 08/03/24 11:50 08/07/24 09:13 Venlafaxine Hcl Xr 37.5 Mg Cap PO 37.5 mg DAILY@0800 THERESE Administration Vitamin B Complex/Folic Acid 1 cap 07/31/24 09:00 08/07/24 09:14 Vitamin B Cmplx/Vit C/Folic Ac 1 Capsule PO 1 cap DAILY THERESE Administration Radiology Results: ITS Impressions Chest X-Ray 08/04/24 08:18 Impression: Mild to moderate pulmonary edema pattern, right worse than left, versus possibly pneumonia. Correlate clinically. Stable cardiomegaly. Chest CTA 08/06/24 08:36 IMPRESSION: 1. No pulmonary embolism. Sensitivity decreased in the smaller subsegmental pulmonary arteries due to respiratory motion. 2. Right middle and lower lobe with fluid and mucus in the bronchi consistent with pneumonia. 3. Small bilateral pleural effusions. 4. 4.3 cm fusiform ascending thoracic aortic aneurysm. 5. 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 Head CT 08/07/24 12:33 IMPRESSION: 1. Normal aging brain. No acute intracranial process. 2. Fluid/mucus in some of the paranasal sinuses consistent with acute sinusitis. Lumbar Spine CT 08/07/24 12:38 IMPRESSION: 1. Mild lumbar spondylosis. Labs Labs: Laboratory Tests 08/08/24 06:07 08/08/24 06:07 Calcium 8.6 Total Bilirubin 1.1 AST 18 ALT 13 Alkaline Phosphatase 80 Total Protein 6.0 L Albumin 3.6
[2024-08-08] MEDS: ACETAMINOPHEN 325 MG TABLET 650 MG PO ×2 (11:26→18:03)
[2024-08-08] MEDS: EPOETIN ALFA-EPBX 10,000 UNITS/ML VIAL 10000 UNITS IV PUSH (11:39)
--- NOTE | 2024-08-08 11:42 | PCOTNOTE ---
The patient treatment was not able to be completed out of room for HD. Will plan to continue treatment per plan of care.
--- NOTE | 2024-08-08 13:10 | PCPTNOTE ---
The patient treatment was not able to be completed today due to patient out of room for dialysis. Will plan to continue treatment per plan of care.
[2024-08-08 13:22] LABS: Rapid Plasma Reagin Non-Reactive (NonReactive)
[2024-08-08] MEDS: VENLAFAXINE HCL XR 37.5 MG CAP PO (13:48)
[2024-08-08] MEDS: guaiFENesin 12 HR 600 MG TABCR PO (13:48)
[2024-08-08] MEDS: ATORVASTATIN 40 MG TABLET PO (13:48)
[2024-08-08] MEDS: PANTOPRAZOLE 40 MG TABLET PO (13:49)
[2024-08-08] MEDS: VITAMIN B CMPLX/VIT C/FOLIC AC 1 CAPSULE 1 CAP PO (13:49)
[2024-08-08] MEDS: CYANOCOBALAMIN 500 MCG TABLET PO (13:49)
[2024-08-08] MEDS: predniSONE 20 MG TABLET 40 MG PO (13:49)
[2024-08-08] MEDS: carvediloL 3.125 MG TABLET PO (13:49)
[2024-08-08] MEDS: SEVELAMER CARBONATE 800 MG TABLET PO ×2 (13:51→18:02)
--- NOTE | 2024-08-08 14:08 | PCOTNOTE ---
Attempted x 2 this afternoon. First attempt, Patient had no returned from dialysis yet, Second attempt, Patient going down for a MRI. Patient not seen for therapy services this date.
[2024-08-08 14:37] LABS: Glucose Point of Care 127 mg/dl (65-105)
--- NOTE | 2024-08-08 15:34 | PM.IMPN ---
Progress Note: A&P Assessment and Plan (1) Acute respiratory failure with hypoxia: Code(s): J96.01 - Acute respiratory failure with hypoxia Status: Acute Assessment and Plan: From fluid overload CXR showed pulm edema For dialysis today still on 1 liter oxygen If she continues to requires oxygen after dialysis will obtain cT chest to rule out pneumonia continue titrating oxygen (2) RSV infection: Qualifiers: RSV infection type: unspecified Qualified Code(s): B33.8 - Other specified viral diseases Code(s): B33.8 - Other specified viral diseases Status: Acute Assessment and Plan: Respiratory panel positive for RSV Continue DuoNebs, Tessalon Perles, Mucinex intial Chest x-ray negative CXR today showed pulm edema however if oxygen requirement remains after dialysis then CT chest will be obtained to rule out pneumonia Prednisone 40mg daily x day 2/5days (3) ESRD (end stage renal disease) on dialysis: Code(s): N18.6 - End stage renal disease; Z99.2 - Dependence on renal dialysis Status: Chronic Assessment and Plan: continue dialysis Nephrology following (4) Type 2 diabetes mellitus: Qualifiers: Diabetes mellitus complication status: without complication Diabetes mellitus director long term care insulin use: without director long term care use Qualified Code(s): E11.9 - Type 2 diabetes mellitus without complications Code(s): E11.9 - Type 2 diabetes mellitus without complications Status: Chronic Assessment and Plan: Blood sugars ranging 139-284 Hgb A1C 7.1 Accu checks AC/HS Low-dose SSI ordered Continue Lantus 35 units at bedtime Will hold Victoza and sitagliptin while inpatient hypoglycemic protocol in place Diabetic diet ordered monitor (5) Atrial fibrillation: Qualifiers: Atrial fibrillation type: unspecified Qualified Code(s): I48.91 - Unspecified atrial fibrillation Code(s): I48.91 - Unspecified atrial fibrillation Status: Chronic Assessment and Plan: EKG showing AFib rate controlled Not currently on any home medications??? investigate (6) Anemia: Qualifiers: Anemia type: unspecified type Qualified Code(s): D64.9 - Anemia, unspecified Code(s): D64.9 - Anemia, unspecified Status: Chronic Assessment and Plan: Likely secondary to her end-stage renal disease Hemoglobin 9.1 (7) Hypertension: Qualifiers: Hypertension type: unspecified Qualified Code(s): I10 - Essential (primary) hypertension Code(s): I10 - Essential (primary) hypertension Status: Chronic Assessment and Plan: Low blood pressures resolved on Coreg monitor and adjust stable (8) Metabolic encephalopathy: Code(s): G93.41 - Metabolic encephalopathy Status: Acute Assessment and Plan: Currently patient on dialysis Neurology Consulted CT head negative MRI brain reviewed TSH normal, RPR negative, Vitamin B12 normal. Possibly toxin versus infectious process Recently diagnosed hepatitis B infection No evidence of recent administration of anxiolytics or sedatives Hepatitis B panel ordered (9) Hepatitis B: Code(s): B19.10 - Unspecified viral hepatitis B without hepatic coma Status: Acute Assessment and Plan: Ordered Hepatitis B panel Plan Diabetic neuropathy Started on Venlafaxine monitor DVT prophylaxis on Sq Heparin PT/OT eval for discharge planning Subjective Date/time seen: 08/08/24 15:34 Interval history: Patient mentation is same as like as yesterday even though underwent dialysis today. As mentioned earlier r she was recently diagnosed with Hepatitis B. Pending Hepatitis B panel. Performed the MRI and no acute intracranial process. Consulted Neuro. Review of Systems Review of Systems: All systems reviewed & are unremarkable except as noted in HPI and below Constitutional: Constitutional: Reports as per HPI and Reports no additional constitutional complaints Eyes: Eyes: Reports as per HPI and Reports no additional eye complaints ENT: Reports system reviewed and no additional complaints, except as documented and Reports as per HPI Cardiovascular: Cardiovascular: Reports as per HPI and Reports no additional cardiovascular complaints Respiratory: Respiratory: Reports as per HPI and Reports no additional respiratory complaints Gastrointestinal: Gastrointestinal: Reports as per HPI and Reports no additional gastrointestinal complaints Genitourinary: Genitourinary: Reports no additional female genitourinary complaints and Reports as per HPI Musculoskeletal: Musculoskeletal: Reports no additional musculoskeletal complaints and Reports as per HPI Integumentary/Breasts: Skin/Breast: Reports system reviewed and no additional complaints, except as docu and Reports as per HPI Neurologic: Reports system reviewed and no additional complaints, except as documented and Reports as per HPI Psychiatric: Psychiatric: Reports no additional psychiatric complaints and Reports as per HPI Exam Narrative: General: In no acute distress Cardiac: Normal S1 and S2. No murmur, gallops or friction rubs, peripheral pulses intact. Respiratory: Rhonchi with mild expiratory wheezing bilaterally---R>L, , on 1L NC Gastrointestinal: soft, non-distended, non-tender, normoactive bowel sounds. :anuric on HD M-W-F Neuro: Alert and oriented x4 Const: General: comfortable and no acute distress Other: Elderly, female, ill-appearing HENMT: Face/Nose/Sinus: Normal nares present Mouth: Yes moist mucous membranes Eyes: General: appearance normal, both eyes and all related structures Sclera: sclerae normal Pupils: Equal, round and reactive pupils present EOM: EOMs intact bilaterally Resp: Other: Bibasilar crackles, + tachypnea without increased work of breathing Cardio: Rate: regular rate Rhythm: regular rhythm Other: S1-S2 present without murmur, rub, ectopy GI: Other: Abdomen soft, nondistended, nontender. Skin: General skin exam: normal color and no rashes or lesions noted Wounds: no wounds Neuro: Cranial nerves: Yes Equal, round and reactive pupils present Speech: normal speech Motor exam (neuro): 5/5 motor strength present throughout Sensory Exam: normal sensation Other: S1-S2 present without murmur, rub, ectopy Extrem: General: normal exam except as noted Other: +thrill and bruit to RUE fistula. old fistula to LUE. Psych: Mental Status: mental status grossly normal Affect: normal affect Other: Good insight and judgment, pleasant Objective Data Vital Signs Vital Signs: Vital Signs - 24 hr 08/07/24 20:34 08/07/24 20:40 08/08/24 05:31 Temperature 97.8 F 97.8 F Pulse Rate 67 67 110 H Respiratory Rate 18 18 Blood Pressure 125/41 L 121/51 L Pulse Oximetry 96 92 Oxygen Flow Rate 08/08/24 08:26 08/08/24 08:49 08/08/24 08:49 Temperature 97.7 F Pulse Rate 66 106 H Respiratory Rate 20 Blood Pressure 138/45 L 130/85 Pulse Oximetry 100 Oxygen Flow Rate 2 08/08/24 09:00 08/08/24 09:15 08/08/24 09:30 Temperature Pulse Rate 69 68 67 Respiratory Rate Blood Pressure 117/52 L 99/82 L 125/46 L Pulse Oximetry Oxygen Flow Rate 08/08/24 09:45 08/08/24 10:00 08/08/24 10:15 Temperature Pulse Rate 72 75 74 Respiratory Rate Blood Pressure 134/44 L 134/35 L 99/55 L Pulse Oximetry Oxygen Flow Rate 08/08/24 10:30 08/08/24 10:45 08/08/24 11:00 Temperature Pulse Rate 74 71 70 Respiratory Rate Blood Pressure 120/69 154/51 H 108/34 L Pulse Oximetry Oxygen Flow Rate 08/08/24 11:15 08/08/24 11:30 08/08/24 11:45 Temperature Pulse Rate 85 82 80 Respiratory Rate Blood Pressure 118/93 H 135/106 H 147/51 H Pulse Oximetry Oxygen Flow Rate 08/08/24 12:00 08/08/24 12:20 08/08/24 12:24 Temperature 98.1 F Pulse Rate 82 87 92 Respiratory Rate 20 Blood Pressure 157/101 H 139/37 L 134/48 L Pulse Oximetry 100 Oxygen Flow Rate 08/08/24 13:49 08/08/24 14:00 Temperature Pulse Rate 72 69 Respiratory Rate 18 Blood Pressure 107/83 Pulse Oximetry 98 Oxygen Flow Rate Intake/Output Intake/Output: Intake & Output 08/05/24 08/06/24 08/07/24 08/08/24 23:59 23:59 23:59 23:59 Intake Total 1077 960 730 640 Output Total 916 1000 Balance 1077 44 730 -360 Meds/Results Medications: Active Medications Generic Name Dose Route Start Last Admin Trade Name Freq PRN Reason Stop Dose Admin Acetaminophen 650 mg 07/30/24 18:22 08/08/24 11:26 Acetaminophen 325 Mg Tablet PO 650 mg Q6H PRN Administration Mild Pain (1-3) or Fever Albuterol/Ipratropium 3 ml 07/30/24 18:22 08/03/24 15:52 Ipratropium 0.5 Mg/Albuterol Sulfate 2.5 Mg Ampul.Neb 3 Ml INHALATION 3 ml Q6HRT PRN Administration Shortness Of Breath Or Wheezing Atorvastatin Calcium 40 mg 07/31/24 09:00 08/08/24 13:48 Atorvastatin 40 Mg Tablet PO 40 mg DAILY THERESE Administration Benzocaine 1 lozenge 07/30/24 18:22 07/30/24 21:28 Benzocaine/Menthol (*Bkc) 18 Ea Lozenge PO 1 lozenge PRN PRN Administration Sore Throat Benzonatate 100 mg 07/30/24 18:22 07/30/24 21:27 Benzonatate 100 Mg Capsule PO 100 mg TID PRN Administration Cough Calcium Carbonate 600 mg 08/01/24 17:30 08/08/24 13:51 Calcium Carbonate (Tums) 500 Mg (200 Mg Elemental) PO 600 mg TID THERESE Administration Carvedilol 3.125 mg 08/02/24 21:00 08/08/24 13:49 Carvedilol 3.125 Mg Tablet PO 3.125 mg Q12HR THERESE Administration Cyanocobalamin 500 mcg 07/31/24 09:00 08/08/24 13:49 Cyanocobalamin 500 Mcg Tablet PO 500 mcg DAILY THERESE Administration Dextrose 12.5 gm 07/30/24 18:29 Dextrose 50% 25 Gm/50 Ml Syringe IV PUSH PRN PRN Hypoglycemia Protocol Dicyclomine HCl 10 mg 07/30/24 21:35 Dicyclomine Hcl 10 Mg Capsule PO BID PRN Abdominal Pain Epoetin Son-epbx 10,000 units 08/08/24 18:10 08/08/24 11:39 Epoetin Son-Epbx 10,000 Units/Ml Vial IV PUSH 08/08/24 18:11 10,000 units ONCE ONE Administration Ergocalciferol 50,000 units 08/02/24 09:00 08/02/24 09:04 Ergocalciferol 50,000 Units Capsule PO 50,000 units WEEKLY THERESE Administration Glucagon 1 mg 07/30/24 18:29 Glucagon For Inj 1 Mg Vial IM PRN PRN Hypoglycemia Protocol Glucose 15 gm 07/30/24 18:29 Glucose Oral Gel 15 Gm Of Glucse In 37.5 Gm Tube PO PRN PRN Hypoglycemia Protocol Guaifenesin 600 mg 07/30/24 21:00 08/08/24 13:48 Guaifenesin 12 Hr 600 Mg Tabcr PO 600 mg Q12HR THERESE Administration Heparin Sodium (Porcine) 5,000 units 08/03/24 14:00 08/08/24 13:55 Heparin Sodium 5,000 Units/Ml Vial SUB-Q 5,000 units Q8HR THERESE Administration Dextrose 1,000 mls @ 100 mls/hr 07/30/24 18:29 Dextrose 5% 1,000 Ml IVPB PRN PRN Hypoglycemia Protocol Albumin Human 50 mls @ 999 mls/hr 08/01/24 07:00 08/06/24 13:46 Albutein IVPB 08/31/24 06:59 999 mls/hr Q10M PRN Administration HYPOTENSION Insulin Aspart 2 - 5 units 07/31/24 08:00 08/08/24 13:52 Insulin Aspart (*Bkc) 100 Units/Ml SUB-Q Not Given TIDWM [facility] Protocol Insulin Aspart 1 - 2 units 08/01/24 22:20 08/07/24 21:06 Insulin Aspart (*Bkc) 100 Units/Ml SUB-Q Not Given HS [facility] Protocol Insulin Glargine 35 units 08/02/24 21:00 08/07/24 23:21 Insulin Glargine (*Bkc) 100 Units/Ml SUB-Q Not Given HS [facility] Miconazole Nitrate 1 applic 08/06/24 11:52 Miconazole Nitrate 2% Cream 30 Gm Tube TOPICAL Q12HR PRN maceration * Home Med * 1.8 mg 07/31/24 21:00 Liraglutide [Victoza SUB-Q 08/30/24 20:59 2-Agustín] 0.6 Mg/0.1 HS [facility] Ml (18 Mg/3 Ml) Pen Injector Pantoprazole Sodium 40 mg 07/31/24 09:00 08/08/24 13:49 Pantoprazole 40 Mg Tablet PO 40 mg Q12HR THERESE Administration Prednisone 40 mg 08/03/24 11:55 08/08/24 13:49 Prednisone 20 Mg Tablet PO 40 mg DAILY@0800 [facility] Administration Sevelamer Carbonate 800 mg 07/31/24 08:00 08/08/24 13:51 Sevelamer Carbonate 800 Mg Tablet PO 800 mg TIDWM THERESE Administration Sitagliptin Phosphate 100 mg 07/31/24 09:00 07/31/24 08:56 Sitagliptin Phosphate 100 Mg Tablet PO 100 mg DAILY THERESE Administration Venlafaxine HCl 37.5 mg 08/03/24 11:50 08/08/24 13:48 Venlafaxine Hcl Xr 37.5 Mg Cap PO 37.5 mg DAILY@0800 [facility] Administration Vitamin B Complex/Folic Acid 1 cap 07/31/24 09:00 08/08/24 13:49 Vitamin B Cmplx/Vit C/Folic Ac 1 Capsule PO 1 cap DAILY THERESE Administration Radiology Results: ITS Impressions Chest X-Ray 08/04/24 08:18 Impression: Mild to moderate pulmonary edema pattern, right worse than left, versus possibly pneumonia. Correlate clinically. Stable cardiomegaly. Chest CTA 08/06/24 08:36 IMPRESSION: 1. No pulmonary embolism. Sensitivity decreased in the smaller subsegmental pulmonary arteries due to respiratory motion. 2. Right middle and lower lobe with fluid and mucus in the bronchi consistent with pneumonia. 3. Small bilateral pleural effusions. 4. 4.3 cm fusiform ascending thoracic aortic aneurysm. 5. 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 Head CT 08/07/24 12:33 IMPRESSION: 1. Normal aging brain. No acute intracranial process. 2. Fluid/mucus in some of the paranasal sinuses consistent with acute sinusitis. Lumbar Spine CT 08/07/24 12:38 IMPRESSION: 1. Mild lumbar spondylosis. Labs Labs: Laboratory Results - last 24 hr 08/07/24 08/07/24 08/07/24 15:26 17:24 20:58 WBC RBC Hgb Hct MCV MCH MCHC RDW Plt Count MPV Immature Gran % (Auto) Neut % (Auto) Lymph % (Auto) [place] % (Auto) Eos % (Auto) Baso % (Auto) Lymph # (Auto) [place] # (Auto) Eos # (Auto) Baso # (Auto) Abs Immat Gran (auto) Absolute Neuts (auto) Absolute Nucleated RBC Nucleated RBC % Platelet Estimate % Immature Plt Fraction Basophilic Stippling Anisocytosis Schistocytes Sodium Potassium Chloride Carbon Dioxide Anion Gap BUN Creatinine Estim Creat Clear Calc Estimated GFR Glucose POC Capillary Glucose 95 111 H Calcium Total Bilirubin AST ALT Alkaline Phosphatase Ammonia 14 Total Protein Albumin Vitamin B12 > 1000.0 H Folate > 20.0 H TSH (Reflex) 1.090 RPR Non-reactive Hep Bs Antigen Negative Hep Bs Antibody Indeterminate Hep B Core IgM Ab Negative 08/08/24 08/08/24 08/08/24 06:07 08:15 14:34 WBC 12.9 H RBC 2.85 L Hgb 9.1 L Hct 31.9 L MCV 111.9 H MCH 31.9 MCHC 28.5 L RDW 17.7 H Plt Count 128 L MPV 12.1 H Immature Gran % (Auto) 0.8 H Neut % (Auto) 81.8 H Lymph % (Auto) 8.6 L [place] % (Auto) 8.7 H Eos % (Auto) 0.0 Baso % (Auto) 0.1 L Lymph # (Auto) 1.11 [place] # (Auto) 1.1 H Eos # (Auto) 0.0 Baso # (Auto) 0.0 Abs Immat Gran (auto) 0.10 H Absolute Neuts (auto) 10.5 H Absolute Nucleated RBC 0.080 H Nucleated RBC % 0.6 H Platelet Estimate Decreased % Immature Plt Fraction 8.8 Basophilic Stippling 1+ Anisocytosis 2+ Schistocytes None seen Sodium 133 L Potassium 4.6 Chloride 93 L Carbon Dioxide 31 H Anion Gap 9 BUN 38 H D Creatinine 4.05 H Estim Creat Clear Calc Not Reportable Estimated GFR 11 L Glucose 75 POC Capillary Glucose 70 127 H Calcium 8.6 Total Bilirubin 1.1 AST 18 ALT 13 Alkaline Phosphatase 80 Ammonia Total Protein 6.0 L Albumin 3.6 Vitamin B12 Folate TSH (Reflex) RPR Hep Bs Antigen Hep Bs Antibody Hep B Core IgM Ab Quality VTE Prophylaxis VTE prophylaxis: mechanical ordered Hospitalist MIPS Advance Care Plan I have confirmed that the patient's Advanced Care Plan is present, code status is documented, or surrogate decision maker is listed in patient medical record.: Yes Medication Reconciliation I have utilized all available resources to obtain, update and review the patients current medications (includes all prescriptions, OTC, herbals, cannabis, and nutritional supplements).: Yes
[2024-08-08 17:17] LABS: Glucose Point of Care 167 mg/dl (65-105)
[2024-08-08] MEDS: CALCIUM CARBONATE (TUMS) 500 MG (200 MG ELEMENTAL) 600 MG PO (18:02)
[2024-08-08 21:49] LABS: Glucose Point of Care 212 mg/dl (65-105)
[2024-08-08] MEDS: INSULIN ASPART (*BKC) 100 UNITS/ML SUB-Q (22:26)
--- NOTE | 2024-08-08 22:32 | PC.NURSE ---
Patient drowsy during med pass and would not takes po medication
[2024-08-09] VITALS (14 sets, daily range): BP systolic 121–141; BP diastolic 47–54; PULSE 60–80; RESP 18–23; TEMP 36.3–37.1; O2SAT 97–100
[2024-08-09 02:49] LABS: Hepatitis B Core Ab Total REACTIVE (NON-REACTIVE); Hepatitis Be Antibody REACTIVE (NON-REACTIVE); Hepatitis Be Antigen NON-REACTIVE (NON-REACTIVE)
[2024-08-09] MEDS: HEPARIN SODIUM 5,000 UNITS/ML VIAL 5000 UNITS SUB-Q ×2 (05:35→16:56)
--- NOTE | 2024-08-09 08:02 | PC.NURSE ---
This RN called to the room by daughter, Brice, because she was unable to wake her mother. This RN went to bedside and the pt was alert but drowsy. Brice is wanting to talk with the doctor about the plan of care. Notified Dr. WOLFE.
[2024-08-09 08:57] LABS: Glucose Point of Care 149 mg/dl (65-105)
[2024-08-09] MEDS: predniSONE 20 MG TABLET 40 MG PO (10:16)
[2024-08-09] MEDS: CYANOCOBALAMIN 500 MCG TABLET PO (10:16)
[2024-08-09] MEDS: CALCIUM CARBONATE (TUMS) 500 MG (200 MG ELEMENTAL) 600 MG PO (10:17)
[2024-08-09] MEDS: PANTOPRAZOLE 40 MG TABLET PO ×2 (10:17→21:25)
[2024-08-09] MEDS: ERGOCALCIFEROL 50,000 UNITS CAPSULE 50000 UNITS PO (10:17)
[2024-08-09] MEDS: ATORVASTATIN 40 MG TABLET PO (10:17)
[2024-08-09] MEDS: carvediloL 3.125 MG TABLET PO ×2 (10:18→21:25)
[2024-08-09] MEDS: VITAMIN B CMPLX/VIT C/FOLIC AC 1 CAPSULE 1 CAP PO (10:19)
[2024-08-09] MEDS: SEVELAMER CARBONATE 800 MG TABLET PO (10:19)
[2024-08-09] MEDS: guaiFENesin 12 HR 600 MG TABCR PO ×2 (10:19→21:26)
[2024-08-09 10:22] LABS: Basophils Percent Auto 0.1 % (0.2-1.2); Eosinophils Percent Auto 0.1 % (0-4.4); Hematocrit 31.6 % (37.0-47.0); Hemoglobin 9.2 g/dL (12.0-15.0); Immature Granulocyte Absolute 0.06 K/mm3 (0.00-0.031); Immature Granulocyte Percent A 0.5 % (0-0.5); Lymphocytes Absolute Auto 0.93 K/mm3 (0.9-3.2); Lymphocytes Percent Auto 8.2 % (18.3-44.2); Mean Corpuscular HGB Conc 29.1 g/dl (32-36); Mean Corpuscular Hemoglobin 32.5 pg (26-34); Mean Corpuscular Volume 111.7 fl (80-100); Mean Platelet Volume 12.3 fl (7.4-10.4); Monocytes Absolute Auto 0.7 K/mm3 (0.1-0.6); Monocytes Percent Auto 6.1 % (2.6-8.5); Neutrophils Absolute Auto 9.7 K/mm3 (1.3-6.7); Nucleated Red Blood Cells Perc 1.1 % (0.0-0.2); Platelet Count Result 107 k/mm3 (150-375); Red Blood Count 2.83 M/mm3 (4.2-5.4); Red Cell Distribution Width 18.4 % (11.5-14.5); White Blood Count 11.4 K/mm3 (4.5-10.0)
[2024-08-09 10:43] LABS: Anisocytosis 1+; Basophilic Stippling 1+; Burr Cells 1+; Macrocytosis 1+ (NORMAL); Platelet Estimate Adequate (Adequate)
[2024-08-09 10:44] LABS: Schistocytes None Seen
[2024-08-09 10:51] LABS: Alanine Aminotransferase 12 U/L (6-35); Albumin Level 3.9 g/dL (3.5-5.1); Alkaline Phosphatase 79 U/L (38-126); Anion Gap 10 mmol/L (4-12); Aspartate Amino Transferase 21 U/L (14-36); Bilirubin,Total 1.1 mg/dL (0.2-1.3); Blood Urea Nitrogen 23 mg/dL (7-17); Calcium 8.4 mg/dL (8.4-10.2); Carbon Dioxide 24 mmol/L (22-30); Chloride 99 mmol/L (98-107); Estimated Glomerular Filt Rate 17; Glucose 180 mg/dL (65-110); Potassium 4.1 mmol/L (3.4-5.0); Sodium 133 mmol/L (137-145)
[2024-08-09] MEDS: levoFLOXacin 750 MG/D5W 150 ML 750 MG/150 ML BAG 100 MG IVPB (11:46)
--- NOTE | 2024-08-09 11:52 | P.PNNP_ITS ---
Progress Note: A&P Assessment and Plan (1) End stage renal disease: Code(s): N18.6 - End stage renal disease Status: Chronic Assessment and Plan: * HD was done yesterday. * continue M/W/F dialysis schedule while hospitalized * Volume status looks okay. Potassium and bicarbonate are both okay. BUN is well controlled. (2) Altered mental status: Code(s): R41.82 - Altered mental status, unspecified Status: Acute Assessment and Plan: * appears to wax and wane * CT of head negative * No obvious infection but since nothing else seems to be and lightening, will check cultures. * minimize sedative medications * STOP venlafaxine as this was added recently (08/03) for presumed diabetic/neuropathic feet pain... * MRI of brain today * TSH/RPR/Vitamin B12 okay * O2 sat was mildly low in the morning of August 06. But quickly respond * Will check a blood gas to rule out CO2 retention * will check blood and urine cultures as well as a urinalysis * Neurology consulted (3) Hypoxia: Code(s): R09.02 - Hypoxemia Status: Acute Assessment and Plan: * as nted by EMS * 80% on room air * improved with 2L oxygen by nasal cannula * presumably due to mild pulmonary edema and RSV (as noted on admission) * no evidence of pneumonia by CXR * however, recent CT of chest notes right middle and lower lobe with fluid and mucus in the bronchi consistent with pneumonia. * will check a CT of the chest without contrast to look more into this * wean supplemental oxygen as tolerated (4) RSV infection: Qualifiers: RSV infection type: unspecified Qualified Code(s): B33.8 - Other specified viral diseases Code(s): B33.8 - Other specified viral diseases Status: Acute Assessment and Plan: * tested positive for RSV on 07/30 in ER * reported onset of symptoms on 07/28 * continues supportive care: * Mucinex * Tessalon Perles p.r.n. * DuoNeb as needed * Tylenol (5) Atrial fibrillation: Qualifiers: Atrial fibrillation type: unspecified Qualified Code(s): I48.91 - Unspecified atrial fibrillation Code(s): I48.91 - Unspecified atrial fibrillation Status: Chronic Assessment and Plan: * paroxysmal * rate controlled * not on anticoagulation (due to hx of GI bleeding versus fall risk?) (6) Anemia: Qualifiers: Anemia type: unspecified type Qualified Code(s): D64.9 - Anemia, unspecified Code(s): D64.9 - Anemia, unspecified Status: Chronic Assessment and Plan: * related to ESRD * Epogen with HD * hemoglobin stable in the low 9s (7) Hypertension: Qualifiers: Hypertension type: unspecified Qualified Code(s): I10 - Essential (primary) hypertension Code(s): I10 - Essential (primary) hypertension Status: Chronic Assessment and Plan: * reasonable control * follow hemodynamics (8) Type 2 diabetes mellitus: Qualifiers: 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 Shasta is sleepy. She does recognize me and was able to say my name. She was able to say her daughter's name as well. She knows she is in the hospital but was not sure which 1. she did not know what day date or year it was. Exam Narrative: General: elderly female in NAD Heart: normal S1 and S2; no rub Lungs: coarse breath sounds Abdomen: soft, nontender, nondistended, positive bowel sounds Extremities: no cyanosis or clubbing; no edema Skin: no nodules Neuro: Sleepy but responds. Oriented x2. Motor is 3/5. Cranial nerves looks symmetric but does not really follow commands. Cerebellar no tremor seizure or clonus. Reflexes 2+ and symmetric Objective Data Vital Signs Vital Signs: Vital Signs - 24 hr 08/08/24 12:00 08/08/24 12:20 08/08/24 12:24 Temperature 98.1 F Pulse Rate 82 87 92 Respiratory Rate 20 Blood Pressure 157/101 H 139/37 L 134/48 L Pulse Oximetry 100 Oxygen Delivery Oxygen Flow Rate 08/08/24 13:00 08/08/24 13:49 08/08/24 14:00 Temperature Pulse Rate 72 69 Respiratory Rate 18 Blood Pressure 107/83 Pulse Oximetry 98 98 Oxygen Delivery Nasal Cannula Oxygen Flow Rate 2 01/31/25 20:28 08/09/24 04:58 08/09/24 07:57 Temperature 97.7 F 97.5 F L 97.5 F L Pulse Rate 70 64 67 Respiratory Rate 18 18 18 Blood Pressure 110/50 L 139/48 L 125/50 L Pulse Oximetry 100 100 98 Oxygen Delivery Oxygen Flow Rate 08/09/24 10:18 08/09/24 10:56 Temperature Pulse Rate 80 Respiratory Rate Blood Pressure Pulse Oximetry 97 Oxygen Delivery Nasal Cannula Oxygen Flow Rate 2 Intake/Output Intake/Output: Intake & Output 08/06/24 08/07/24 08/08/24 08/09/24 23:59 23:59 23:59 23:59 Intake Total 960 730 840 0 Output Total 916 1000 Balance 44 730 -160 0 Meds/Results Medications: Active Medications Generic Name Dose Route Start Last Admin Trade Name Freq PRN Reason Stop Dose Admin Acetaminophen 650 mg 07/30/24 18:22 08/08/24 18:03 Acetaminophen 325 Mg Tablet PO 650 mg Q6H PRN Administration Mild Pain (1-3) or Fever Albuterol/Ipratropium 3 ml 07/30/24 18:22 08/03/24 15:52 Ipratropium 0.5 Mg/Albuterol Sulfate 2.5 Mg Ampul.Neb 3 Ml INHALATION 3 ml Q6HRT PRN Administration Shortness Of Breath Or Wheezing Atorvastatin Calcium 40 mg 07/31/24 09:00 08/09/24 10:17 Atorvastatin 40 Mg Tablet PO 40 mg DAILY THERESE Administration Benzocaine 1 lozenge 07/30/24 18:22 07/30/24 21:28 Benzocaine/Menthol (*Bkc) 18 Ea Lozenge PO 1 lozenge PRN PRN Administration Sore Throat Benzonatate 100 mg 07/30/24 18:22 07/30/24 21:27 Benzonatate 100 Mg Capsule PO 100 mg TID PRN Administration Cough Calcium Carbonate 600 mg 08/01/24 17:30 08/09/24 10:17 Calcium Carbonate (Tums) 500 Mg (200 Mg Elemental) PO 600 mg TID THERESE Administration Carvedilol 3.125 mg 08/02/24 21:00 08/09/24 10:18 Carvedilol 3.125 Mg Tablet PO 3.125 mg Q12HR THERESE Administration Cyanocobalamin 500 mcg 07/31/24 09:00 08/09/24 10:16 Cyanocobalamin 500 Mcg Tablet PO 500 mcg DAILY THERESE Administration Dextrose 12.5 gm 07/30/24 18:29 Dextrose 50% 25 Gm/50 Ml Syringe IV PUSH PRN PRN Hypoglycemia Protocol Dicyclomine HCl 10 mg 07/30/24 21:35 Dicyclomine Hcl 10 Mg Capsule PO BID PRN Abdominal Pain Ergocalciferol 50,000 units 08/02/24 09:00 08/09/24 10:17 Ergocalciferol 50,000 Units Capsule PO 50,000 units WEEKLY THERESE Administration Glucagon 1 mg 07/30/24 18:29 Glucagon For Inj 1 Mg Vial IM PRN PRN Hypoglycemia Protocol Glucose 15 gm 07/30/24 18:29 Glucose Oral Gel 15 Gm Of Glucse In 37.5 Gm Tube PO PRN PRN Hypoglycemia Protocol Guaifenesin 600 mg 07/30/24 21:00 08/09/24 10:19 Guaifenesin 12 Hr 600 Mg Tabcr PO 600 mg Q12HR THERESE Administration Heparin Sodium (Porcine) 5,000 units 08/03/24 14:00 08/09/24 05:35 Heparin Sodium 5,000 Units/Ml Vial SUB-Q 5,000 units Q8HR THERESE Administration Dextrose 1,000 mls @ 100 mls/hr 07/30/24 18:29 Dextrose 5% 1,000 Ml IVPB PRN PRN Hypoglycemia Protocol Albumin Human 50 mls @ 999 mls/hr 08/01/24 07:00 08/06/24 13:46 Albutein IVPB 08/31/24 06:59 999 mls/hr Q10M PRN Administration HYPOTENSION Levofloxacin/Dextrose 750 mg in 150 mls @ 100 mls/hr 08/09/24 11:15 08/09/24 11:46 Levaquin 750 Mg/D5w 150 Ml IVPB 08/09/24 12:44 100 mls/hr ONCE ONE Administration Insulin Aspart 2 - 5 units 07/31/24 08:00 08/09/24 09:15 Insulin Aspart (*Bkc) 100 Units/Ml SUB-Q Not Given TIDWM THERESE Protocol Insulin Aspart 1 - 2 units 08/01/24 22:20 08/08/24 22:26 Insulin Aspart (*Bkc) 100 Units/Ml SUB-Q 1 units HS [facility] Administration Protocol Insulin Glargine 35 units 08/02/24 21:00 08/07/24 23:21 Insulin Glargine (*Bkc) 100 Units/Ml SUB-Q Not Given HS [facility] Levofloxacin 500 mg 08/11/24 16:00 Levofloxacin 500 Mg Tablet PO Q48H [facility] Miconazole Nitrate 1 applic 08/06/24 11:52 Miconazole Nitrate 2% Cream 30 Gm Tube TOPICAL Q12HR PRN maceration * Home Med * 1.8 mg 07/31/24 21:00 Liraglutide [Victoza SUB-Q 08/30/24 20:59 2-Agustín] 0.6 Mg/0.1 HS [facility] Ml (18 Mg/3 Ml) Pen Injector Pantoprazole Sodium 40 mg 07/31/24 09:00 08/09/24 10:17 Pantoprazole 40 Mg Tablet PO 40 mg Q12HR THERESE Administration Prednisone 40 mg 08/03/24 11:55 08/09/24 10:16 Prednisone 20 Mg Tablet PO 40 mg DAILY@0800 [facility] Administration Sevelamer Carbonate 800 mg 07/31/24 08:00 08/09/24 10:19 Sevelamer Carbonate 800 Mg Tablet PO 800 mg TIDWM [facility] Administration Sitagliptin Phosphate 100 mg 07/31/24 09:00 07/31/24 08:56 Sitagliptin Phosphate 100 Mg Tablet PO 100 mg DAILY [facility] Administration Venlafaxine HCl 37.5 mg 08/03/24 11:50 08/09/24 10:17 Venlafaxine Hcl Xr 37.5 Mg Cap PO Not Given DAILY@0800 [facility] Vitamin B Complex/Folic Acid 1 cap 07/31/24 09:00 08/09/24 10:19 Vitamin B Cmplx/Vit C/Folic Ac 1 Capsule PO 1 cap DAILY [facility] Administration Radiology Results: ITS Impressions Chest CTA 08/06/24 08:36 IMPRESSION: 1. No pulmonary embolism. Sensitivity decreased in the smaller subsegmental pulmonary arteries due to respiratory motion. 2. Right middle and lower lobe with fluid and mucus in the bronchi consistent with pneumonia. 3. Small bilateral pleural effusions. 4. 4.3 cm fusiform ascending thoracic aortic aneurysm. 5. 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 Head CT 08/07/24 12:33 IMPRESSION: 1. Normal aging brain. No acute intracranial process. 2. Fluid/mucus in some of the paranasal sinuses consistent with acute sinusitis. Lumbar Spine CT 08/07/24 12:38 IMPRESSION: 1. Mild lumbar spondylosis. Brain MRI 08/08/24 16:41 IMPRESSION: 1. No acute intracranial process. 2. Moderate scattered calcific white matter T2 hyperintensity which within normal limits for age and consistent with chronic small vessel ischemic disease. 3. Fluid/mucus in some of the paranasal sinuses consistent with acute sinusitis. Chest X-Ray 08/09/24 11:39 IMPRESSION: 1. Mild pulmonary edema. 2. Airspace opacities at the lung bases, consistent with atelectasis versus pneumonia. 3. Small left pleural effusion. 4. Cardiomegaly. Labs Labs: Laboratory Results - last 24 hr 08/07/24 08/08/24 08/08/24 15:26 14:34 17:12 WBC RBC Hgb Hct MCV MCH MCHC RDW Plt Count MPV Immature Gran % (Auto) Neut % (Auto) Lymph % (Auto) [place] % (Auto) Eos % (Auto) Baso % (Auto) Lymph # (Auto) [place] # (Auto) Eos # (Auto) Baso # (Auto) Abs Immat Gran (auto) Absolute Neuts (auto) Absolute Nucleated RBC Nucleated RBC % Platelet Estimate Basophilic Stippling Anisocytosis Macrocytosis Wallace Cells Schistocytes Sodium Potassium Chloride Carbon Dioxide Anion Gap BUN Creatinine Estim Creat Clear Calc Estimated GFR Glucose POC Capillary Glucose 127 H 167 H Calcium Total Bilirubin AST ALT Alkaline Phosphatase Total Protein Albumin RPR Non-reactive Hep B Core Total Ab Reactive A Hepatitis Be Antibody Reactive A Hepatitis Be Antigen Non-reactive 08/08/24 08/09/24 08/09/24 20:45 08:52 10:12 WBC 11.4 H RBC 2.83 L Hgb 9.2 L Hct 31.6 L MCV 111.7 H MCH 32.5 MCHC 29.1 L RDW 18.4 H Plt Count 107 L MPV 12.3 H Immature Gran % (Auto) 0.5 Neut % (Auto) 85.0 H Lymph % (Auto) 8.2 L [place] % (Auto) 6.1 Eos % (Auto) 0.1 Baso % (Auto) 0.1 L Lymph # (Auto) 0.93 [place] # (Auto) 0.7 H Eos # (Auto) 0.0 Baso # (Auto) 0.0 Abs Immat Gran (auto) 0.06 H Absolute Neuts (auto) 9.7 H Absolute Nucleated RBC 0.130 H Nucleated RBC % 1.1 H Platelet Estimate Adequate Basophilic Stippling 1+ Anisocytosis 1+ Macrocytosis 1+ Menard Cells 1+ Schistocytes None seen Sodium 133 L Potassium 4.1 Chloride 99 Carbon Dioxide 24 Anion Gap 10 BUN 23 H D Creatinine 2.76 H Estim Creat Clear Calc Not Reportable Estimated GFR 17 L Glucose 180 H POC Capillary Glucose 212 H 149 H Calcium 8.4 Total Bilirubin 1.1 AST 21 ALT 12 Alkaline Phosphatase 79 Total Protein 6.0 L Albumin 3.9 RPR Hep B Core Total Ab Hepatitis Be Antibody Hepatitis Be Antigen
[2024-08-09 12:13] LABS: Alveolar/Arterial O2 Gradient < 0.0 mmHg; Fractional Inspired Oxygen 28 %; HCO3 ABG 24.4 mEq/l (22.0-26.0); Methemoglobin ABG 0.3 %THb (0-1.5); Oxygen Content ABG 13.6 %vol (16.0-22.0); Oxygen Saturation ABG 97.9 % (95.0-100.0); Oxyhemoglobin 97.8 % THb (90.0-100.0); PO2 ABG 137.5 mmHg (80.0-100.0); PO2 FiO2 Ratio Arterial Blood 4.91 %; Reduced Hemoglobin 0.9 %THb (0-5.0); Total Hemoglobin 9.7 g/dL (12.0-18.0)
[2024-08-09 12:14] LABS: Glucose Point of Care 268 mg/dl (65-105)
[2024-08-09 12:16] LABS: PCO2 ABG 71.3 mmHg (35.0-45.0); pH ABG 7.152 (7.350-7.450)
[2024-08-09 12:17] LABS: Device NASAL CANNULA; Modified Allen's Test Pass; Site Drawn LEFT RADIAL
[2024-08-09] MEDS: INSULIN ASPART (*BKC) 100 UNITS/ML SUB-Q (12:36)
[2024-08-09 15:25] LABS: Alveolar/Arterial O2 Gradient 42.1 mmHg; Base Excess ABG -1.9 mEq/l (+/-2.0); Carboxyhemoglobin 1.2 % THb (0-2.0); Fractional Inspired Oxygen 30 %; HCO3 ABG 25.9 mEq/l (22.0-26.0); Methemoglobin ABG 0.3 %THb (0-1.5); Oxygen Content ABG 13.5 %vol (16.0-22.0); Oxygen Saturation ABG 96.4 % (95.0-100.0); Oxyhemoglobin 96.9 % THb (90.0-100.0); PO2 ABG 99.9 mmHg (80.0-100.0); PO2 FiO2 Ratio Arterial Blood 3.33 %; Reduced Hemoglobin 1.6 %THb (0-5.0); Total Hemoglobin 9.8 g/dL (12.0-18.0)
[2024-08-09 15:26] LABS: pH ABG 7.245 (7.350-7.450)
[2024-08-09 15:28] LABS: Device NON-INVASIVE VENT; Modified Allen's Test Pass; Non-Invasive Expiratory Pressure 5 CMH2O; Non-Invasive Inspiratory Pressure 16 CMH2O; Non-Invasive Vent Rate 14 /MIN; PCO2 ABG 61.2 mmHg (35.0-45.0); Site Drawn LEFT RADIAL
--- NOTE | 2024-08-09 16:22 | P.PNIM_ITS ---
Progress Note: A&P Assessment and Plan (1) Acute respiratory failure with hypoxia: Code(s): J96.01 - Acute respiratory failure with hypoxia Status: Acute Assessment and Plan: From fluid overload CXR showed pulm edema For dialysis today still on 1 liter oxygen If she continues to requires oxygen after dialysis will obtain cT chest to rule out pneumonia continue titrating oxygen (2) RSV infection: Qualifiers: RSV infection type: unspecified Qualified Code(s): B33.8 - Other sp ecified viral diseases Code(s): B33.8 - Other specified viral diseases Status: Acute Assessment and Plan: * Respiratory panel positive for RSV * Continue DuoNebs, Tessalon Perles, Mucinex * intial Chest x-ray negative * CXR today showed pulm edema however if oxygen requirement remains after dialysis then CT chest will be obtained to rule out pneumonia Prednisone 40mg daily x day 2/5days (3) ESRD (end stage renal disease) on dialysis: Code(s): N18.6 - End stage renal disease; Z99.2 - Dependence on renal dialysis Status: Chronic Assessment and Plan: continue dialysis Nephrology following (4) Type 2 diabetes mellitus: Qualifiers: Diabetes mellitus complication status: without complication Diabetes mellitus jail insulin use: without jail use Qualified Code(s): E11.9 - Type 2 diabetes mellitus without complications Code(s): E11.9 - Type 2 diabetes mellitus without complications Status: Chronic Assessment and Plan: * Blood sugars ranging 139-284 * Hgb A1C 7.1 * Accu checks AC/HS * Low-dose SSI ordered * Continue Lantus 35 units at bedtime * Will hold Victoza and sitagliptin while inpatient * hypoglycemic protocol in place * Diabetic diet ordered * monitor (5) Atrial fibrillation: Qualifiers: Atrial fibrillation type: unspecified Qualified Code(s): I48.91 - Unspecified atrial fibrillation Code(s): I48.91 - Unspecified atrial fibrillation Status: Chronic Assessment and Plan: * EKG showing AFib rate controlled * Not currently on any home medications??? * investigate (6) Anemia: Qualifiers: Anemia type: unspecified type Qualified Code(s): D64.9 - Anemia, unspecified Code(s): D64.9 - Anemia, unspecified Status: Chronic Assessment and Plan: Likely secondary to her end-stage renal disease * Hemoglobin 9.1 (7) Hypertension: Qualifiers: Hypertension type: unspecified Qualified Code(s): I10 - Essential (primary) hypertension Code(s): I10 - Essential (primary) hypertension Status: Chronic Assessment and Plan: * Low blood pressures resolved on Coreg monitor and adjust stable (8) Metabolic encephalopathy: Code(s): G93.41 - Metabolic encephalopathy Status: Acute Assessment and Plan: Currently patient on dialysis Neurology Consulted ABG shows hypercapnia Currently on BiPAP settings 12/6 Will consult pulmonology if needed Temporary BiPAP to eliminate CO2 No evidence of receiving anxiolytics or sedatives CT head negative MRI brain reviewed TSH normal, RPR negative, Vitamin B12 normal. Possibly toxin versus infectious process Recently diagnosed hepatitis B infection No evidence of recent administration of anxiolytics or sedatives Hepatitis B panel shows no acute infection but evidence of exposure Needs follow-up with GI as outpatient (9) Hepatitis B: Code(s): B19.10 - Unspecified viral hepatitis B without hepatic coma Status: Acute Assessment and Plan: Ordered Hepatitis B panel (10) Pneumonia: Code(s): J18.9 - Pneumonia, unspecified organism Status: Acute Assessment and Plan: Started on Levaquin and metronidazole Nasal MRSA negative Ordered blood culture Monitor vital Currently on BiPAP with setting 12/6. Repeat ABG at 9 p.m. Re-evaluate patient and if needed continue BiPAP Plan Diabetic neuropathy Started on Venlafaxine monitor DVT prophylaxis on Sq Heparin PT/OT eval for discharge planning Subjective Date/time seen: 08/09/24 16:22 Interval history: Patient is AO x3 but still week and drowsy. Patient ABG shows evidence of hypercapnia. Started BiPAP. Discussed with metal milling machine operator who agrees not intubating the patient since there is no preferable outcome once intubated. Repeat ABG is better but still ph is 7.245, and CO2 61.2. Patient does not produce urine. Due to the evidence of pneumonia in the CT possibly due to aspiration, patient started on Levaquin and metronidazole, and started empiric fluconazole for vaginal yeast. Reviewed brain MRI and head CT which shows no acute intracranial process. TSH, ammonia, B12, RPR negative. Even though previously she was diagnosed with hepatitis B current hepatitis panel shows no acute infection but evidence of exposure of hepatitis-B. Patient is to follow- up with GI as an outpatient. Patient will be transferred to IMU. Continue BiPAP until 9:00 p.m. and repeat ABG. If needed will continue BiPAP Review of Systems Review of Systems: All systems reviewed & are unremarkable except as noted in HPI and below Constitutional: Constitutional: Reports as per HPI and Reports no additional constitutional complaints Eyes: Eyes: Reports as per HPI and Reports no additional eye complaints ENT: Reports system reviewed and no additional complaints, except as documented and Reports as per HPI Cardiovascular: Cardiovascular: Reports as per HPI and Reports no additional cardiovascular complaints Respiratory: Respiratory: Reports as per HPI and Reports no additional respiratory complaints Gastrointestinal: Gastrointestinal: Reports as per HPI and Reports no additional gastrointestinal complaints Genitourinary: Genitourinary: Reports no additional female genitourinary complaints and Reports as per HPI Musculoskeletal: Musculoskeletal: Reports no additional musculoskeletal complaints and Reports as per HPI Integumentary/Breasts: Skin/Breast: Reports system reviewed and no additional complaints, except as docu and Reports as per HPI Neurologic: Reports system reviewed and no additional complaints, except as documented and Reports as per HPI Psychiatric: Psychiatric: Reports no additional psychiatric complaints and Reports as per HPI Exam Narrative: General: In no acute distress Cardiac: Normal S1 and S2. No murmur, gallops or friction rubs, peripheral pulses intact. Respiratory: Rhonchi with mild expiratory wheezing bilaterally---R>L, , on 1L NC Gastrointestinal: soft, non-distended, non-tender, normoactive bowel sounds. :anuric on HD M-W-F Neuro: Alert and oriented x4 Const: General: comfortable and no acute distress Other: Elderly, female, ill-appearing HENMT: Face/Nose/Sinus: Normal nares present Mouth: Yes moist mucous membranes Eyes: General: appearance normal, both eyes and all related structures Sclera: sclerae normal Pupils: Equal, round and reactive pupils present EOM: EOMs intact bilaterally Resp: Other: Bibasilar crackles, + tachypnea without increased work of breathing Cardio: Rate: regular rate Rhythm: regular rhythm Other: S1-S2 present without murmur, rub, ectopy GI: Other: Abdomen soft, nondistended, nontender. Skin: General skin exam: normal color and no rashes or lesions noted Wounds: no wounds Neuro: Cranial nerves: Yes Equal, round and reactive pupils present Speech: normal speech Motor exam (neuro): 5/5 motor strength present throughout Sensory Exam: normal sensation Other: S1-S2 present without murmur, rub, ectopy Extrem: General: normal exam except as noted Other: +thrill and bruit to RUE fistula. old fistula to LUE. Psych: Mental Status: mental status grossly normal Affect: normal affect Other: Good insight and judgment, pleasant Objective Data Vital Signs Vital Signs: Vital Signs - 24 hr 08/08/24 20:28 08/09/24 04:58 08/09/24 07:57 Temperature 97.7 F 97.5 F L 97.5 F L Pulse Rate 70 64 67 Respiratory Rate 18 18 18 Blood Pressure 110/50 L 139/48 L 125/50 L Pulse Oximetry 100 100 98 Oxygen Delivery Oxygen Flow Rate 08/09/24 10:18 08/09/24 10:56 08/09/24 13:00 Temperature Pulse Rate 80 68 Respiratory Rate 20 Blood Pressure Pulse Oximetry 97 100 Oxygen Delivery Nasal Cannula BiPAP Oxygen Flow Rate 2 08/09/24 14:20 Temperature 97.7 F Pulse Rate 60 Respiratory Rate 20 Blood Pressure 121/48 L Pulse Oximetry 99 Oxygen Delivery Oxygen Flow Rate Intake/Output Intake/Output: Intake & Output 08/06/24 08/07/24 08/08/24 08/09/24 23:59 23:59 23:59 23:59 Intake Total 960 730 840 0 Output Total 916 1000 Balance 44 730 -160 0 Meds/Results Medications: Active Medications Generic Name Dose Route Start Last Admin Trade Name Freq PRN Reason Stop Dose Admin Acetaminophen 650 mg 07/30/24 18:22 08/08/24 18:03 Acetaminophen 325 Mg Tablet PO 650 mg Q6H PRN Administration Mild Pain (1-3) or Fever Albuterol/Ipratropium 3 ml 07/30/24 18:22 08/03/24 15:52 Ipratropium 0.5 Mg/Albuterol Sulfate 2.5 Mg Ampul.Neb 3 Ml INHALATION 3 ml Q6HRT PRN Administration Shortness Of Breath Or Wheezing Atorvastatin Calcium 40 mg 07/31/24 09:00 08/09/24 10:17 Atorvastatin 40 Mg Tablet PO 40 mg DAILY THERESE Administration Benzocaine 1 lozenge 07/30/24 18:22 07/30/24 21:28 Benzocaine/Menthol (*Bkc) 18 Ea Lozenge PO 1 lozenge PRN PRN Administration Sore Throat Benzonatate 100 mg 07/30/24 18:22 07/30/24 21:27 Benzonatate 100 Mg Capsule PO 100 mg TID PRN Administration Cough Calcium Carbonate 600 mg 08/01/24 17:30 08/09/24 14:45 Calcium Carbonate (Tums) 500 Mg (200 Mg Elemental) PO Not Given TID THERESE Carvedilol 3.125 mg 08/02/24 21:00 08/09/24 10:18 Carvedilol 3.125 Mg Tablet PO 3.125 mg Q12HR THERESE Administration Cyanocobalamin 500 mcg 07/31/24 09:00 08/09/24 10:16 Cyanocobalamin 500 Mcg Tablet PO 500 mcg DAILY THERESE Administration Dextrose 12.5 gm 07/30/24 18:29 Dextrose 50% 25 Gm/50 Ml Syringe IV PUSH PRN PRN Hypoglycemia Protocol Dicyclomine HCl 10 mg 07/30/24 21:35 Dicyclomine Hcl 10 Mg Capsule PO BID PRN Abdominal Pain Ergocalciferol 50,000 units 08/02/24 09:00 08/09/24 10:17 Ergocalciferol 50,000 Units Capsule PO 50,000 units WEEKLY THERESE Administration Glucagon 1 mg 07/30/24 18:29 Glucagon For Inj 1 Mg Vial IM PRN PRN Hypoglycemia Protocol Glucose 15 gm 07/30/24 18:29 Glucose Oral Gel 15 Gm Of Glucse In 37.5 Gm Tube PO PRN PRN Hypoglycemia Protocol Guaifenesin 600 mg 07/30/24 21:00 08/09/24 10:19 Guaifenesin 12 Hr 600 Mg Tabcr PO 600 mg Q12HR THERESE Administration Heparin Sodium (Porcine) 5,000 units 08/03/24 14:00 08/09/24 05:35 Heparin Sodium 5,000 Units/Ml Vial SUB-Q 5,000 units Q8HR THERESE Administration Dextrose 1,000 mls @ 100 mls/hr 07/30/24 18:29 Dextrose 5% 1,000 Ml IVPB PRN PRN Hypoglycemia Protocol Albumin Human 50 mls @ 999 mls/hr 08/01/24 07:00 08/06/24 13:46 Albutein IVPB 08/31/24 06:59 999 mls/hr Q10M PRN Administration HYPOTENSION Insulin Aspart 2 - 5 units 07/31/24 08:00 08/09/24 12:36 Insulin Aspart (*Bkc) 100 Units/Ml SUB-Q 3 units TIDWM [facility] Administration Protocol Insulin Aspart 1 - 2 units 08/01/24 22:20 08/08/24 22:26 Insulin Aspart (*Bkc) 100 Units/Ml SUB-Q 1 units HS [facility] Administration Protocol Insulin Glargine 35 units 08/02/24 21:00 08/07/24 23:21 Insulin Glargine (*Bkc) 100 Units/Ml SUB-Q Not Given HS [facility] Levofloxacin 500 mg 08/11/24 16:00 Levofloxacin 500 Mg Tablet PO Q48H [facility] Miconazole Nitrate 1 applic 08/06/24 11:52 Miconazole Nitrate 2% Cream 30 Gm Tube TOPICAL Q12HR PRN maceration * Home Med * 1.8 mg 07/31/24 21:00 Liraglutide [Victoza SUB-Q 08/30/24 20:59 2-Agustín] 0.6 Mg/0.1 HS [facility] Ml (18 Mg/3 Ml) Pen Injector Pantoprazole Sodium 40 mg 07/31/24 09:00 08/09/24 10:17 Pantoprazole 40 Mg Tablet PO 40 mg Q12HR THERESE Administration Prednisone 40 mg 08/03/24 11:55 08/09/24 10:16 Prednisone 20 Mg Tablet PO 40 mg DAILY@0800 [facility] Administration Sevelamer Carbonate 800 mg 07/31/24 08:00 08/09/24 14:45 Sevelamer Carbonate 800 Mg Tablet PO Not Given TIDWM [facility] Sitagliptin Phosphate 100 mg 07/31/24 09:00 07/31/24 08:56 Sitagliptin Phosphate 100 Mg Tablet PO 100 mg DAILY [facility] Administration Venlafaxine HCl 37.5 mg 08/03/24 11:50 08/09/24 10:17 Venlafaxine Hcl Xr 37.5 Mg Cap PO Not Given DAILY@0800 [facility] Vitamin B Complex/Folic Acid 1 cap 07/31/24 09:00 08/09/24 10:19 Vitamin B Cmplx/Vit C/Folic Ac 1 Capsule PO 1 cap DAILY THERESE Administration Radiology Results: ITS Impressions Chest CTA 08/06/24 08:36 IMPRESSION: 1. No pulmonary embolism. Sensitivity decreased in the smaller subsegmental pulmonary arteries due to respiratory motion. 2. Right middle and lower lobe with fluid and mucus in the bronchi consistent with pneumonia. 3. Small bilateral pleural effusions. 4. 4.3 cm fusiform ascending thoracic aortic aneurysm. 5. 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 Head CT 08/07/24 12:33 IMPRESSION: 1. Normal aging brain. No acute intracranial process. 2. Fluid/mucus in some of the paranasal sinuses consistent with acute sinusitis. Lumbar Spine CT 08/07/24 12:38 IMPRESSION: 1. Mild lumbar spondylosis. Brain MRI 08/08/24 16:41 IMPRESSION: 1. No acute intracranial process. 2. Moderate scattered calcific white matter T2 hyperintensity which within normal limits for age and consistent with chronic small vessel ischemic disease. 3. Fluid/mucus in some of the paranasal sinuses consistent with acute sinusitis. Chest X-Ray 08/09/24 11:39 IMPRESSION: 1. Mild pulmonary edema. 2. Airspace opacities at the lung bases, consistent with atelectasis versus pneumonia. 3. Small left pleural effusion. 4. Cardiomegaly. Labs Labs: Laboratory Results - last 24 hr 08/07/24 08/08/24 08/08/24 15:26 17:12 20:45 WBC RBC Hgb Hct MCV MCH MCHC RDW Plt Count MPV Immature Gran % (Auto) Neut % (Auto) Lymph % (Auto) [place] % (Auto) Eos % (Auto) Baso % (Auto) Lymph # (Auto) [place] # (Auto) Eos # (Auto) Baso # (Auto) Abs Immat Gran (auto) Absolute Neuts (auto) Absolute Nucleated RBC Nucleated RBC % Platelet Estimate Basophilic Stippling Anisocytosis Macrocytosis Wallace Cells Schistocytes Puncture Site ABG pH ABG pCO2 ABG pO2 ABG PO2/FiO2 Ratio ABG HCO3 ABG O2 Saturation ABG O2 Content ABG Base Excess A-a Gradient Oxyhemoglobin Carboxyhemoglobin Methemoglobin Reduced Hemoglobin Total Hemoglobin O2 Delivery Device O2 Liters/Min Vent Rate FiO2 Expiratory Pressure Inspiratory Pressure Sodium Potassium Chloride Carbon Dioxide Anion Gap BUN Creatinine Estim Creat Clear Calc Estimated GFR Glucose POC Capillary Glucose 167 H 212 H Calcium Total Bilirubin AST ALT Alkaline Phosphatase Total Protein Albumin Hep B Core Total Ab Reactive A Hepatitis Be Antibody Reactive A Hepatitis Be Antigen Non-reactive 08/09/24 08/09/24 08/09/24 08:52 10:12 12:03 WBC 11.4 H RBC 2.83 L Hgb 9.2 L Hct 31.6 L MCV 111.7 H MCH 32.5 MCHC 29.1 L RDW 18.4 H Plt Count 107 L MPV 12.3 H Immature Gran % (Auto) 0.5 Neut % (Auto) 85.0 H Lymph % (Auto) 8.2 L [place] % (Auto) 6.1 Eos % (Auto) 0.1 Baso % (Auto) 0.1 L Lymph # (Auto) 0.93 [place] # (Auto) 0.7 H Eos # (Auto) 0.0 Baso # (Auto) 0.0 Abs Immat Gran (auto) 0.06 H Absolute Neuts (auto) 9.7 H Absolute Nucleated RBC 0.130 H Nucleated RBC % 1.1 H Platelet Estimate Adequate Basophilic Stippling 1+ Anisocytosis 1+ Macrocytosis 1+ [place] Cells 1+ Schistocytes None seen Puncture Site Left radial ABG pH 7.152 L* ABG pCO2 71.3 H* ABG pO2 137.5 H ABG PO2/FiO2 Ratio 4.91 ABG HCO3 24.4 ABG O2 Saturation 97.9 ABG O2 Content 13.6 L ABG Base Excess -5.0 A-a Gradient < 0.0 Oxyhemoglobin 97.8 Carboxyhemoglobin 1.0 Methemoglobin 0.3 Reduced Hemoglobin 0.9 Total Hemoglobin 9.7 L O2 Delivery Device Nasal cannula O2 Liters/Min 2.0 Vent Rate FiO2 28 Expiratory Pressure Inspiratory Pressure Sodium 133 L Potassium 4.1 Chloride 99 Carbon Dioxide 24 Anion Gap 10 BUN 23 H D Creatinine 2.76 H Estim Creat Clear Calc Not Reportable Estimated GFR 17 L Glucose 180 H POC Capillary Glucose 149 H Calcium 8.4 Total Bilirubin 1.1 AST 21 ALT 12 Alkaline Phosphatase 79 Total Protein 6.0 L Albumin 3.9 Hep B Core Total Ab Hepatitis Be Antibody Hepatitis Be Antigen 08/09/24 08/09/24 12:11 15:15 WBC RBC Hgb Hct MCV MCH MCHC RDW Plt Count MPV Immature Gran % (Auto) Neut % (Auto) Lymph % (Auto) [place] % (Auto) Eos % (Auto) Baso % (Auto) Lymph # (Auto) [place] # (Auto) Eos # (Auto) Baso # (Auto) Abs Immat Gran (auto) Absolute Neuts (auto) Absolute Nucleated RBC Nucleated RBC % Platelet Estimate Basophilic Stippling Anisocytosis Macrocytosis [place] Cells Schistocytes Puncture Site Left radial ABG pH 7.245 L* ABG pCO2 61.2 H* ABG pO2 99.9 ABG PO2/FiO2 Ratio 3.33 ABG HCO3 25.9 ABG O2 Saturation 96.4 ABG O2 Content 13.5 L ABG Base Excess -1.9 A-a Gradient 42.1 Oxyhemoglobin 96.9 Carboxyhemoglobin 1.2 Methemoglobin 0.3 Reduced Hemoglobin 1.6 Total Hemoglobin 9.8 L O2 Delivery Device Non-invasive vent O2 Liters/Min 0.0 Vent Rate 14 FiO2 30 Expiratory Pressure 5 Inspiratory Pressure 16 Sodium Potassium Chloride Carbon Dioxide Anion Gap BUN Creatinine Estim Creat Clear Calc Estimated GFR Glucose POC Capillary Glucose 268 H Calcium Total Bilirubin AST ALT Alkaline Phosphatase Total Protein Albumin Hep B Core Total Ab Hepatitis Be Antibody Hepatitis Be Antigen Quality VTE Prophylaxis VTE prophylaxis: mechanical ordered Hospitalist MIPS Advance Care Plan I have confirmed that the patient's Advanced Care Plan is present, code status is documented, or surrogate decision maker is listed in patient medical record.: Yes Medication Reconciliation I have utilized all available resources to obtain, update and review the patients current medications (includes all prescriptions, OTC, herbals, cannabis, and nutritional supplements).: Yes
[2024-08-09] MEDS: metroNIDAZOLE 500 MG/ISO 100ML 500 MG/100 ML BAG 100 MG IVPB (18:25)
[2024-08-09 18:29] LABS: Glucose Point of Care 197 mg/dl (65-105)
[2024-08-09 20:43] LABS: Alveolar/Arterial O2 Gradient 74.3 mmHg; Base Excess ABG -0.9 mEq/l (+/-2.0); Carboxyhemoglobin 1.2 % THb (0-2.0); Fractional Inspired Oxygen 30 %; HCO3 ABG 26.3 mEq/l (22.0-26.0); Methemoglobin ABG 0.3 %THb (0-1.5); Oxygen Saturation ABG 92.3 % (95.0-100.0); Oxyhemoglobin 94.5 % THb (90.0-100.0); PCO2 ABG 57.3 mmHg (35.0-45.0); PO2 ABG 72.3 mmHg (80.0-100.0); PO2 FiO2 Ratio Arterial Blood 2.41 %; Total Hemoglobin 9.7 g/dL (12.0-18.0)
[2024-08-09 20:46] LABS: Site Drawn LEFT RADIAL
[2024-08-09 20:47] LABS: Device BIPAP; Expiratory Pressure 5 cmH2O; Inspiratory Pressure 16 cmH2O; Modified Allen's Test Pass
[2024-08-09 21:14] LABS: Glucose Point of Care 198 mg/dl (65-105)
--- NOTE | 2024-08-09 23:44 | PC.NURSE ---
Patient was transferred to IMU room 202 at 2330. Report was given to receiving nurse prior to transport.
[2024-08-10] VITALS (44 sets, daily range): BP systolic 110–169; BP diastolic 42–62; PULSE 57–82; RESP 16–26; TEMP 0–37; O2SAT 95–100
--- NOTE | 2024-08-10 00:07 | PC.NURSE ---
Donkey Engine Firer/Fireman was informed by SERVICE DEVELOPER that daughter declined to have vital signs at 2100 and prior to transfer.
[2024-08-10] MEDS: IPRATROPIUM 0.5 MG/ALBUTEROL SULFATE 2.5 MG AMPUL.NEB 3 ML INHALATION ×4 (02:41→20:20)
[2024-08-10 03:22] LABS: Glucose Point of Care 190 mg/dl (65-105)
[2024-08-10] MEDS: HEPARIN SODIUM 5,000 UNITS/ML VIAL 5000 UNITS SUB-Q ×3 (05:44→23:51)
[2024-08-10] MEDS: metroNIDAZOLE 500 MG/ISO 100ML 500 MG/100 ML BAG 100 MG IVPB ×2 (05:44→18:22)
--- NOTE | 2024-08-10 06:11 | PC.NURSE ---
This patient, Shasta Obando, was received from room 346-01 on 08/09/24 at 2320. Patient/family oriented to unit policies and routines. Pt's daughter present at bedside.
[2024-08-10 06:53] LABS: Glucose Point of Care 154 mg/dl (65-105)
[2024-08-10 08:02] LABS: Alveolar/Arterial O2 Gradient 28.1 mmHg; Base Excess ABG -2.2 mEq/l (+/-2.0); Fractional Inspired Oxygen 30 %; HCO3 ABG 23.2 mEq/l (22.0-26.0); Oxygen Content ABG 11.1 %vol (16.0-22.0); Oxygen Saturation ABG 98.6 % (95.0-100.0); Oxyhemoglobin 97.5 % THb (90.0-100.0); PCO2 ABG 42.9 mmHg (35.0-45.0); PO2 ABG 135.4 mmHg (80.0-100.0); PO2 FiO2 Ratio Arterial Blood 4.51 %; pH ABG 7.351 (7.350-7.450)
[2024-08-10 08:04] LABS: Device BIPAP; Expiratory Pressure 5 cmH2O; Inspiratory Pressure 16 cmH2O; Modified Allen's Test Pass; Site Drawn LEFT RADIAL; Total Hemoglobin 7.9 g/dL (12.0-18.0)
--- NOTE | 2024-08-10 09:23 | P.PNNP_ITS ---
Progress Note: A&P Assessment and Plan (1) End stage renal disease: Code(s): N18.6 - End stage renal disease Status: Chronic Assessment and Plan: * HD was done on Sunday. * See below * continue M/W/F dialysis schedule while hospitalized * Volume status looks okay. Potassium and bicarbonate are both okay. BUN is well controlled. (2) Altered mental status: Code(s): R41.82 - Altered mental status, unspecified Status: Acute Assessment and Plan: * appears to wax and wane * CT of head negative * No obvious infection but since nothing else seems to be and lightening, * cultures pending. Hospitalist started her on antibiotics. * Off all sedating medication * MRI of brain unremarkable * TSH/RPR/Vitamin B12 okay * blood gas ordered yesterday. This showed severe CO2 retention. She was placed on a BiPAP mask. * Chest x-ray showed fluid overload. * urinalysis showed a few white cells, not an impressive amount. * Blood cultures ordered and are pending * Will do a dry ultrafiltration today to remove fluid. * Neurology consulted (3) Hypoxia: Code(s): R09.02 - Hypoxemia Status: Acute Assessment and Plan: * as nted by EMS * 80% on room air * improved with 2L oxygen by nasal cannula * presumably due to mild pulmonary edema and RSV (as noted on admission) * I suspect that most of her problem is the CO2 retention. It is unclear what Initiated this possibly silent aspiration or may be just the RSV. is getting a swallow study. He will also consult Pulmonary. * The venlafaxine may have played a little role. * At this point PCP is going to try to see if she can come off the BiPAP machine and see how the mental status looks. * we are not ready for comfort care yet as there are several reversible issues occuring. will see what pulmonary and neuro say. * Long discussion with patient, caregiver, daughter, and Dr Ramirez. 25min spent in discussions apart from clinical activity. (4) RSV infection: Qualifiers: RSV infection type: unspecified Qualified Code(s): B33.8 - Other specified viral diseases Code(s): B33.8 - Other specified viral diseases Status: Acute Assessment and Plan: * tested positive for RSV on 07/30 in ER * reported onset of symptoms on 07/28 * continues supportive care: * Mucinex * Tessalon Perles p.r.n. * DuoNeb as needed * Tylenol (5) Atrial fibrillation: Qualifiers: Atrial fibrillation type: unspecified Qualified Code(s): I48.91 - Unspecified atrial fibrillation Code(s): I48.91 - Unspecified atrial fibrillation Status: Chronic Assessment and Plan: * paroxysmal * pulse 63 * not on anticoagulation (due to hx of GI bleeding versus fall risk?) (6) Anemia: Qualifiers: Anemia type: unspecified type Qualified Code(s): D64.9 - Anemia, unspecified Code(s): D64.9 - Anemia, unspecified Status: Chronic Assessment and Plan: * related to ESRD * Epogen with HD * hemoglobin stable in the low 9s (7) Hypertension: Qualifiers: Hypertension type: unspecified Qualified Code(s): I10 - Essential (primary) hypertension Code(s): I10 - Essential (primary) hypertension Status: Chronic Assessment and Plan: * reasonable control * follow hemodynamics (8) Type 2 diabetes mellitus: Qualifiers: 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 The patient seems a little more interactive. According to her caregiver, she does still sleep often. Patient has a little bit of abdominal discomfort her belly is nontender. No cough daughter and caregiver in the room. We discussed at length Exam Narrative: General: elderly female in NAD Heart: normal S1 and S2; no rub Lungs: coarse breath sounds Abdomen: soft, nontender, nondistended, positive bowel sounds Extremities: no cyanosis or clubbing; no edema Skin: no nodules Neuro: less sleepy and more respondsive. Oriented x2. Motor is 3/5. Cranial nerves looks symmetric but does not really follow commands. Cerebellar no tremor seizure or clonus. Reflexes 2+ and symmetric Objective Data Vital Signs Vital Signs: Vital Signs - 24 hr 08/09/24 10:18 08/09/24 10:56 08/09/24 13:00 Temperature Pulse Rate 80 68 Respiratory Rate 20 Blood Pressure Pulse Oximetry 97 100 Oxygen Delivery Nasal Cannula BiPAP Oxygen Flow Rate 2 Fraction of Inspired Oxygen 08/09/24 14:20 08/09/24 16:00 08/09/24 17:00 Temperature 97.7 F Pulse Rate 60 75 68 Respiratory Rate 20 23 H Blood Pressure 121/48 L Pulse Oximetry 99 98 Oxygen Delivery BiPAP Oxygen Flow Rate Fraction of Inspired Oxygen 08/09/24 17:49 08/09/24 20:29 08/09/24 21:25 Temperature 97.3 F L Pulse Rate 65 62 63 Respiratory Rate 21 H 20 Blood Pressure 125/47 L Pulse Oximetry 100 97 Oxygen Delivery BiPAP Oxygen Flow Rate Fraction of Inspired Oxygen 08/09/24 23:20 08/09/24 23:22 08/09/24 23:30 Temperature 98.8 F Pulse Rate 61 63 61 Respiratory Rate 18 18 Blood Pressure 141/54 H Pulse Oximetry 100 100 Oxygen Delivery BiPAP Oxygen Flow Rate Fraction of Inspired Oxygen 30 08/10/24 00:00 08/10/24 00:00 08/10/24 01:00 Temperature 98.6 F Pulse Rate 67 67 68 Respiratory Rate 18 26 H Blood Pressure 139/59 L Pulse Oximetry 100 100 Oxygen Delivery BiPAP Oxygen Flow Rate Fraction of Inspired Oxygen 08/10/24 02:00 08/10/24 02:41 08/10/24 02:50 Temperature Pulse Rate 66 72 65 Respiratory Rate 26 H 26 H Blood Pressure Pulse Oximetry Oxygen Delivery Oxygen Flow Rate Fraction of Inspired Oxygen 08/10/24 03:55 08/10/24 04:00 08/10/24 04:00 Temperature 97.8 F Pulse Rate 65 65 64 Respiratory Rate 18 18 Blood Pressure 144/46 H Pulse Oximetry 99 100 Oxygen Delivery BiPAP Oxygen Flow Rate Fraction of Inspired Oxygen 30 08/10/24 05:00 08/10/24 06:00 08/10/24 07:51 Temperature Pulse Rate 68 71 65 Respiratory Rate 19 16 Blood Pressure Pulse Oximetry 99 100 Oxygen Delivery BiPAP BiPAP Oxygen Flow Rate Fraction of Inspired Oxygen 08/10/24 07:51 08/10/24 07:51 08/10/24 08:06 Temperature 98.3 F Pulse Rate 65 76 Respiratory Rate 16 23 H Blood Pressure 144/46 H Pulse Oximetry 100 100 Oxygen Delivery BiPAP Oxygen Flow Rate Fraction of Inspired Oxygen 30 08/10/24 08:10 Temperature Pulse Rate 63 Respiratory Rate 16 Blood Pressure Pulse Oximetry Oxygen Delivery Oxygen Flow Rate Fraction of Inspired Oxygen Intake/Output Intake/Output: Intake & Output 08/07/24 08/08/24 08/09/24 08/10/24 23:59 23:59 23:59 23:59 Intake Total 730 840 250 215 Output Total 1000 0 0 Balance 730 -160 250 215 Meds/Results Medications: Active Medications Generic Name Dose Route Start Last Admin Trade Name Freq PRN Reason Stop Dose Admin Acetaminophen 325 mg 08/10/24 00:39 Acetaminophen 325 Mg Tablet BY MOUTH Q4H PRN Pain 1-3 Albuterol/Ipratropium 3 ml 07/30/24 18:22 08/03/24 15:52 Ipratropium 0.5 Mg/Albuterol Sulfate 2.5 Mg Ampul.Neb 3 Ml INHALATION 3 ml Q6HRT PRN Administration Shortness Of Breath Or Wheezing Albuterol/Ipratropium 3 ml 08/09/24 20:00 08/10/24 07:51 Ipratropium 0.5 Mg/Albuterol Sulfate 2.5 Mg Ampul.Neb 3 Ml INHALATION 3 ml Q6HRT THERESE Administration Atorvastatin Calcium 40 mg 07/31/24 09:00 08/09/24 10:17 Atorvastatin 40 Mg Tablet PO 40 mg DAILY THERESE Administration Benzocaine 1 lozenge 07/30/24 18:22 07/30/24 21:28 Benzocaine/Menthol (*Bkc) 18 Ea Lozenge PO 1 lozenge PRN PRN Administration Sore Throat Benzonatate 100 mg 07/30/24 18:22 07/30/24 21:27 Benzonatate 100 Mg Capsule PO 100 mg TID PRN Administration Cough Calcium Carbonate 600 mg 08/01/24 17:30 08/09/24 18:22 Calcium Carbonate (Tums) 500 Mg (200 Mg Elemental) PO Not Given TID THERESE Carvedilol 3.125 mg 08/02/24 21:00 08/09/24 21:25 Carvedilol 3.125 Mg Tablet PO 3.125 mg Q12HR THERESE Administration Cyanocobalamin 500 mcg 07/31/24 09:00 08/09/24 10:16 Cyanocobalamin 500 Mcg Tablet PO 500 mcg DAILY THERESE Administration Dextrose 12.5 gm 07/30/24 18:29 Dextrose 50% 25 Gm/50 Ml Syringe IV PUSH PRN PRN Hypoglycemia Protocol Dicyclomine HCl 10 mg 07/30/24 21:35 Dicyclomine Hcl 10 Mg Capsule PO BID PRN Abdominal Pain Ergocalciferol 50,000 units 08/02/24 09:00 08/09/24 10:17 Ergocalciferol 50,000 Units Capsule PO 50,000 units WEEKLY THERESE Administration Glucagon 1 mg 07/30/24 18:29 Glucagon For Inj 1 Mg Vial IM PRN PRN Hypoglycemia Protocol Glucose 15 gm 07/30/24 18:29 Glucose Oral Gel 15 Gm Of Glucse In 37.5 Gm Tube PO PRN PRN Hypoglycemia Protocol Guaifenesin 600 mg 07/30/24 21:00 08/09/24 21:26 Guaifenesin 12 Hr 600 Mg Tabcr PO 600 mg Q12HR THERESE Administration Heparin Sodium (Porcine) 5,000 units 08/03/24 14:00 08/10/24 05:44 Heparin Sodium 5,000 Units/Ml Vial SUB-Q 5,000 units Q8HR THERESE Administration Dextrose 1,000 mls @ 100 mls/hr 07/30/24 18:29 Dextrose 5% 1,000 Ml IVPB PRN PRN Hypoglycemia Protocol Albumin Human 50 mls @ 999 mls/hr 08/01/24 07:00 08/06/24 13:46 Albutein IVPB 08/31/24 06:59 999 mls/hr Q10M PRN Administration HYPOTENSION Metronidazole 500 mg in 100 mls @ 100 mls/hr 08/09/24 18:00 08/10/24 06:44 Flagyl 500 Mg/Iso Soln 100 Ml IVPB Infused Q12H THERESE Infusion Insulin Aspart 1 - 2 units 08/01/24 22:20 08/08/24 22:26 Insulin Aspart (*Bkc) 100 Units/Ml SUB-Q 1 units HS THERESE Administration Protocol Insulin Aspart 2 - 5 units 08/10/24 00:00 08/10/24 07:11 Insulin Aspart (*Bkc) 100 Units/Ml SUB-Q Not Given Q6HR [facility] Protocol Insulin Glargine 35 units 08/02/24 21:00 08/07/24 23:21 Insulin Glargine (*Bkc) 100 Units/Ml SUB-Q Not Given HS [facility] Levofloxacin 500 mg 08/11/24 16:00 Levofloxacin 500 Mg Tablet PO Q48H [facility] Miconazole Nitrate 1 applic 08/06/24 11:52 Miconazole Nitrate 2% Cream 30 Gm Tube TOPICAL Q12HR PRN maceration * Home Med * 1.8 mg 07/31/24 21:00 Liraglutide [Victoza SUB-Q 08/30/24 20:59 2-Agustín] 0.6 Mg/0.1 HS [facility] Ml (18 Mg/3 Ml) Pen Injector Pantoprazole Sodium 40 mg 07/31/24 09:00 08/09/24 21:25 Pantoprazole 40 Mg Tablet PO 40 mg Q12HR THERESE Administration Prednisone 40 mg 08/03/24 11:55 08/09/24 10:16 Prednisone 20 Mg Tablet PO 40 mg DAILY@0800 [facility] Administration Sevelamer Carbonate 800 mg 07/31/24 08:00 08/09/24 18:22 Sevelamer Carbonate 800 Mg Tablet PO Not Given TIDWM [facility] Sitagliptin Phosphate 100 mg 07/31/24 09:00 07/31/24 08:56 Sitagliptin Phosphate 100 Mg Tablet PO 100 mg DAILY [facility] Administration Venlafaxine HCl 37.5 mg 08/03/24 11:50 08/09/24 10:17 Venlafaxine Hcl Xr 37.5 Mg Cap PO Not Given DAILY@0800 [facility] Vitamin B Complex/Folic Acid 1 cap 07/31/24 09:00 08/09/24 10:19 Vitamin B Cmplx/Vit C/Folic Ac 1 Capsule PO 1 cap DAILY THERESE Administration Radiology Results: ITS Impressions Chest CTA 08/06/24 08:36 IMPRESSION: 1. No pulmonary embolism. Sensitivity decreased in the smaller subsegmental pulmonary arteries due to respiratory motion. 2. Right middle and lower lobe with fluid and mucus in the bronchi consistent with pneumonia. 3. Small bilateral pleural effusions. 4. 4.3 cm fusiform ascending thoracic aortic aneurysm. 5. 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 Head CT 08/07/24 12:33 IMPRESSION: 1. Normal aging brain. No acute intracranial process. 2. Fluid/mucus in some of the paranasal sinuses consistent with acute sinusitis. Lumbar Spine CT 08/07/24 12:38 IMPRESSION: 1. Mild lumbar spondylosis. Brain MRI 08/08/24 16:41 IMPRESSION: 1. No acute intracranial process. 2. Moderate scattered calcific white matter T2 hyperintensity which within normal limits for age and consistent with chronic small vessel ischemic disease. 3. Fluid/mucus in some of the paranasal sinuses consistent with acute sinusitis. Chest X-Ray 08/09/24 11:39 IMPRESSION: 1. Mild pulmonary edema. 2. Airspace opacities at the lung bases, consistent with atelectasis versus pneumonia. 3. Small left pleural effusion. 4. Cardiomegaly. Labs Labs: Laboratory Results - last 24 hr 08/09/24 08/09/24 08/09/24 10:12 12:03 12:11 WBC 11.4 H RBC 2.83 L Hgb 9.2 L Hct 31.6 L MCV 111.7 H MCH 32.5 MCHC 29.1 L RDW 18.4 H Plt Count 107 L MPV 12.3 H Immature Gran % (Auto) 0.5 Neut % (Auto) 85.0 H Lymph % (Auto) 8.2 L [place] % (Auto) 6.1 Eos % (Auto) 0.1 Baso % (Auto) 0.1 L Lymph # (Auto) 0.93 [place] # (Auto) 0.7 H Eos # (Auto) 0.0 Baso # (Auto) 0.0 Abs Immat Gran (auto) 0.06 H Absolute Neuts (auto) 9.7 H Absolute Nucleated RBC 0.130 H Nucleated RBC % 1.1 H Platelet Estimate Adequate Basophilic Stippling 1+ Anisocytosis 1+ Macrocytosis 1+ Sneads Cells 1+ Schistocytes None seen Puncture Site Left radial ABG pH 7.152 L* ABG pCO2 71.3 H* ABG pO2 137.5 H ABG PO2/FiO2 Ratio 4.91 ABG HCO3 24.4 ABG O2 Saturation 97.9 ABG O2 Content 13.6 L ABG Base Excess -5.0 A-a Gradient < 0.0 Oxyhemoglobin 97.8 Carboxyhemoglobin 1.0 Methemoglobin 0.3 Reduced Hemoglobin 0.9 Total Hemoglobin 9.7 L O2 Delivery Device Nasal cannula O2 Liters/Min 2.0 Vent Rate FiO2 28 Expiratory Pressure Inspiratory Pressure Sodium 133 L Potassium 4.1 Chloride 99 Carbon Dioxide 24 Anion Gap 10 BUN 23 H D Creatinine 2.76 H Estim Creat Clear Calc Not Reportable Estimated GFR 17 L Glucose 180 H POC Capillary Glucose 268 H Calcium 8.4 Total Bilirubin 1.1 AST 21 ALT 12 Alkaline Phosphatase 79 Total Protein 6.0 L Albumin 3.9 08/09/24 08/09/24 08/09/24 15:15 18:27 20:29 WBC RBC Hgb Hct MCV MCH MCHC RDW Plt Count MPV Immature Gran % (Auto) Neut % (Auto) Lymph % (Auto) [place] % (Auto) Eos % (Auto) Baso % (Auto) Lymph # (Auto) [place] # (Auto) Eos # (Auto) Baso # (Auto) Abs Immat Gran (auto) Absolute Neuts (auto) Absolute Nucleated RBC Nucleated RBC % Platelet Estimate Basophilic Stippling Anisocytosis Macrocytosis Wallace Cells Schistocytes Puncture Site Left radial Left radial ABG pH 7.245 L* 7.280 L* ABG pCO2 61.2 H* 57.3 H ABG pO2 99.9 72.3 L ABG PO2/FiO2 Ratio 3.33 2.41 ABG HCO3 25.9 26.3 H ABG O2 Saturation 96.4 92.3 L ABG O2 Content 13.5 L 13.0 L ABG Base Excess -1.9 -0.9 A-a Gradient 42.1 74.3 Oxyhemoglobin 96.9 94.5 Carboxyhemoglobin 1.2 1.2 Methemoglobin 0.3 0.3 Reduced Hemoglobin 1.6 4.0 Total Hemoglobin 9.8 L 9.7 L O2 Delivery Device Non-invasive vent Bipap O2 Liters/Min 0.0 Not Reportable Vent Rate 14 FiO2 30 30 Expiratory Pressure 5 5 Inspiratory Pressure 16 16 Sodium Potassium Chloride Carbon Dioxide Anion Gap BUN Creatinine Estim Creat Clear Calc Estimated GFR Glucose POC Capillary Glucose 197 H Calcium Total Bilirubin AST ALT Alkaline Phosphatase Total Protein Albumin 08/09/24 08/10/24 08/10/24 21:12 00:31 06:51 WBC RBC Hgb Hct MCV MCH MCHC RDW Plt Count MPV Immature Gran % (Auto) Neut % (Auto) Lymph % (Auto) [place] % (Auto) Eos % (Auto) Baso % (Auto) Lymph # (Auto) [place] # (Auto) Eos # (Auto) Baso # (Auto) Abs Immat Gran (auto) Absolute Neuts (auto) Absolute Nucleated RBC Nucleated RBC % Platelet Estimate Basophilic Stippling Anisocytosis Macrocytosis Sneads Cells Schistocytes Puncture Site ABG pH ABG pCO2 ABG pO2 ABG PO2/FiO2 Ratio ABG HCO3 ABG O2 Saturation ABG O2 Content ABG Base Excess A-a Gradient Oxyhemoglobin Carboxyhemoglobin Methemoglobin Reduced Hemoglobin Total Hemoglobin O2 Delivery Device O2 Liters/Min Vent Rate FiO2 Expiratory Pressure Inspiratory Pressure Sodium Potassium Chloride Carbon Dioxide Anion Gap BUN Creatinine Estim Creat Clear Calc Estimated GFR Glucose POC Capillary Glucose 198 H 190 H 154 H Calcium Total Bilirubin AST ALT Alkaline Phosphatase Total Protein Albumin 08/10/24 07:51 WBC RBC Hgb Hct MCV MCH MCHC RDW Plt Count MPV Immature Gran % (Auto) Neut % (Auto) Lymph % (Auto) [place] % (Auto) Eos % (Auto) Baso % (Auto) Lymph # (Auto) [place] # (Auto) Eos # (Auto) Baso # (Auto) Abs Immat Gran (auto) Absolute Neuts (auto) Absolute Nucleated RBC Nucleated RBC % Platelet Estimate Basophilic Stippling Anisocytosis Macrocytosis [place] Cells Schistocytes Puncture Site Left radial ABG pH 7.351 ABG pCO2 42.9 ABG pO2 135.4 H ABG PO2/FiO2 Ratio 4.51 ABG HCO3 23.2 ABG O2 Saturation 98.6 ABG O2 Content 11.1 L ABG Base Excess -2.2 A-a Gradient 28.1 Oxyhemoglobin 97.5 Carboxyhemoglobin Methemoglobin Reduced Hemoglobin Total Hemoglobin 7.9 L O2 Delivery Device Bipap O2 Liters/Min Not Reportable Vent Rate FiO2 30 Expiratory Pressure 5 Inspiratory Pressure 16 Sodium Potassium Chloride Carbon Dioxide Anion Gap BUN Creatinine Estim Creat Clear Calc Estimated GFR Glucose POC Capillary Glucose Calcium Total Bilirubin AST ALT Alkaline Phosphatase Total Protein Albumin
[2024-08-10 10:48] LABS: Base Excess ABG -2.6 mEq/l (+/-2.0); Fractional Inspired Oxygen 32 %; HCO3 ABG 24.4 mEq/l (22.0-26.0); Oxygen Content ABG 13.4 %vol (16.0-22.0); Oxygen Saturation ABG 97.3 % (95.0-100.0); Oxyhemoglobin 97.1 % THb (90.0-100.0); PCO2 ABG 53.3 mmHg (35.0-45.0); PO2 ABG 107.8 mmHg (80.0-100.0); PO2 FiO2 Ratio Arterial Blood 3.37 %; Total Hemoglobin 9.7 g/dL (12.0-18.0)
[2024-08-10 10:49] LABS: Device NASAL CANNULA; Modified Allen's Test Pass; Site Drawn LEFT RADIAL; pH ABG 7.278 (7.350-7.450)
[2024-08-10 11:38] LABS: Glucose Point of Care 128 mg/dl (65-105)
--- NOTE | 2024-08-10 12:17 | PCSTNOTE ---
Please refer to the Bedside Swallow Evaluation in the EMR. Please note, silent aspiration cannot be ruled out at bedside. This pleasant 79 year old patient presented to [facility] on 08/01/24 d/t shortness of breath. The pt tested positive for RSV and on the most recent CT scan there is evidence of pneumonia with the possibility that it was caused d/t aspiration. The pt is missing some upper and lower dentition, but this does not affect her diet as reported by her daughter. Trials of thin liquid, puree (pudding), mixed (fruit cocktail), and solid consistencies (blanca cracker) were trialed this date via straw and spoon. The pt demonstrated no s/s throughout this bedside swallow evaluation. On the first trials of thin liquid (ice cubes), the pt demonstrated a hoarse vocal quality. This could be d/t the pt being NPO for ~24 hours. Following trials of ice cubes and a cup sip of thin liquid, the pts vocal quality began to normalize. During trials of the fruit cocktail, the pt demonstrated rotary chewing but was able to clear the fruit with no residue observed. Oral transit was timely. No oral residue observed on any consistency. Laryngeal elevation was adequate and timely for all swallows. Please note that silent aspiration cannot be ruled out at bedside. Given the results of this assessment, it is recommended this pt receive an oral diet of regular solids (IDDSI Level 7) and thin liquids (IDDSI Level 1). It is additionally recommended that the pt follow these standard swallowing precautions: Small bites/sips, sit upright during meals, and alternate solids/liquids with frequent observation/set up assist. No further ST is warranted at this time. Dr. WOLFE and ABENA Schilling were notified of BSE results and recommendations. Thank you for this referral.
[2024-08-10] MEDS: ACETAMINOPHEN 325 MG TABLET BY MOUTH ×2 (12:30→23:50)
[2024-08-10] MEDS: predniSONE 20 MG TABLET 40 MG PO (12:31)
[2024-08-10] MEDS: CALCIUM CARBONATE (TUMS) 500 MG (200 MG ELEMENTAL) 600 MG PO ×2 (12:31→18:22)
[2024-08-10] MEDS: CYANOCOBALAMIN 500 MCG TABLET PO (12:32)
[2024-08-10] MEDS: carvediloL 3.125 MG TABLET PO ×2 (12:32→23:49)
[2024-08-10] MEDS: guaiFENesin 12 HR 600 MG TABCR PO ×2 (12:32→23:49)
[2024-08-10] MEDS: ATORVASTATIN 40 MG TABLET PO (12:32)
[2024-08-10] MEDS: SEVELAMER CARBONATE 800 MG TABLET PO ×2 (12:32→18:22)
[2024-08-10] MEDS: PANTOPRAZOLE 40 MG TABLET PO ×2 (12:33→23:51)
[2024-08-10] MEDS: VITAMIN B CMPLX/VIT C/FOLIC AC 1 CAPSULE 1 CAP PO (12:33)
[2024-08-10 13:31] LABS: Base Excess ABG -1.1 mEq/l (+/-2.0); Fractional Inspired Oxygen 24 %; HCO3 ABG 26.2 mEq/l (22.0-26.0); Oxygen Content ABG 13.3 %vol (16.0-22.0); Oxygen Saturation ABG 93.4 % (95.0-100.0); Oxyhemoglobin 94.9 % THb (90.0-100.0); PO2 ABG 76.3 mmHg (80.0-100.0); PO2 FiO2 Ratio Arterial Blood 3.18 %; Total Hemoglobin 9.9 g/dL (12.0-18.0)
[2024-08-10 13:32] LABS: Device NASAL CANNULA; Modified Allen's Test Pass; Site Drawn LEFT RADIAL
--- NOTE | 2024-08-10 16:10 | P.PNIM_ITS ---
Progress Note: A&P Assessment and Plan (1) Acute respiratory failure with hypoxia: Code(s): J96.01 - Acute respiratory failure with hypoxia Status: Acute Assessment and Plan: CT chest reviewed Currently on dialysis MWF BiPAP Continue to wean (2) RSV infection: Qualifiers: RSV infection type: unspecified Qualified Code(s): B33.8 - Other specified viral diseases Code(s): B33.8 - Other specified viral diseases Status: Acute Assessment and Plan: * Respiratory panel positive for RSV * Continue DuoNebs, Tessalon Perles, Mucinex * intial Chest x-ray negative * Reviewed CT and CXR * Prednisone 40 mg PO (3) ESRD (end stage renal disease) on dialysis: Code(s): N18.6 - End stage renal disease; Z99.2 - Dependence on renal dialysis Status: Chronic Assessment and Plan: continue dialysis Nephrology following (4) Type 2 diabetes mellitus: Qualifiers: Diabetes mellitus complication status: without complication Diabetes mellitus [facility] insulin use: without intermediate teacher use Qualified Code(s): E11.9 - Type 2 diabetes mellitus without complications Code(s): E11.9 - Type 2 diabetes mellitus without complications Status: Chronic Assessment and Plan: * Blood sugars ranging 139-284 * Hgb A1C 7.1 * Accu checks AC/HS * Low-dose SSI ordered * Hold Lantus 35 units at bedtime * Will hold Victoza and sitagliptin while inpatient * hypoglycemic protocol in place * Diabetic diet ordered * monitor (5) Atrial fibrillation: Qualifiers: Atrial fibrillation type: unspecified Qualified Code(s): I48.91 - Unspecified atrial fibrillation Code(s): I48.91 - Unspecified atrial fibrillation Status: Chronic Assessment and Plan: * EKG showing AFib rate controlled * Not currently on any home medications??? * investigate (6) Anemia: Qualifiers: Anemia type: unspecified type Qualified Code(s): D64.9 - Anemia, unspecified Code(s): D64.9 - Anemia, unspecified Status: Chronic Assessment and Plan: Likely secondary to her end-stage renal disease * Hemoglobin 9.1 (7) Hypertension: Qualifiers: Hypertension type: unspecified Qualified Code(s): I10 - Essential (primary) hypertension Code(s): I10 - Essential (primary) hypertension Status: Chronic Assessment and Plan: * Low blood pressures resolved on Coreg monitor and adjust stable (8) Metabolic encephalopathy: Code(s): G93.41 - Metabolic encephalopathy Status: Acute Assessment and Plan: Currently patient on dialysis Neurology Consulted ABG shows hypercapnia Currently on BiPAP settings 06/13 Will consult pulmonology Temporary BiPAP to eliminate CO2 No evidence of receiving anxiolytics or sedatives CT head negative MRI brain reviewed TSH normal, RPR negative, Vitamin B12 normal. Possibly toxin versus infectious process vs underlying pulmonary disease As per her daughter,recently diagnosed hepatitis B infection Hepatitis B panel shows no acute infection but evidence of exposure Needs tofollow-up with GI as outpatient (9) Hepatitis B: Code(s): B19.10 - Unspecified viral hepatitis B without hepatic coma Status: Acute Assessment and Plan: Reviewed Hepatitis B panel (10) Pneumonia: Code(s): J18.9 - Pneumonia, unspecified organism Status: Acute Assessment and Plan: Started on Levaquin and metronidazole Nasal MRSA negative Blood culture neagtive Monitor vital Currently on BiPAP with setting 06/13. Pulmonology consulted and appreciate recs Plan Diabetic neuropathy HOld Venlafaxine monitor DVT prophylaxis on Sq Heparin PT/OT eval for discharge planning Subjective Date/time seen: 08/10/24 16:10 Interval history: Discussed with who agrees with the antibiotic and current plan. He might consider one extra session of dialysis today if necessary. Patient is allergic to cephalosporin and currently in Levaquin and Metronidazole. Had a long discussion with family. Currently continuing BiPAP 21/11. Consulted pulmonology and appreciate recommendations. Reviewed Hepatitis B panel.Speech therapy reported no signs of aspiration. Review of Systems Review of Systems: All systems reviewed & are unremarkable except as noted in HPI and below Constitutional: Constitutional: Reports as per HPI and Reports no additional constitutional complaints Eyes: Eyes: Reports as per HPI and Reports no additional eye complaints ENT: Reports system reviewed and no additional complaints, except as documented and Reports as per HPI Cardiovascular: Cardiovascular: Reports as per HPI and Reports no additional cardiovascular complaints Respiratory: Respiratory: Reports as per HPI and Reports no additional respiratory complaints Gastrointestinal: Gastrointestinal: Reports as per HPI and Reports no additional gastrointestinal complaints Genitourinary: Genitourinary: Reports no additional female genitourinary complaints and Reports as per HPI Musculoskeletal: Musculoskeletal: Reports no additional musculoskeletal complaints and Reports as per HPI Integumentary/Breasts: Skin/Breast: Reports system reviewed and no additional complaints, except as docu and Reports as per HPI Neurologic: Reports system reviewed and no additional complaints, except as documented and Reports as per HPI Psychiatric: Psychiatric: Reports no additional psychiatric complaints and Reports as per HPI Exam Narrative: General: In no acute distress Cardiac: Normal S1 and S2. No murmur, gallops or friction rubs, peripheral pulses intact. Respiratory: Rhonchi with mild expiratory wheezing bilaterally---R>L, , on 1L NC Gastrointestinal: soft, non-distended, non-tender, normoactive bowel sounds. :anuric on HD M-W-F Neuro: Alert and oriented x4 Const: General: comfortable and no acute distress Other: Elderly, female, ill-appearing HENMT: Face/Nose/Sinus: Normal nares present Mouth: Yes moist mucous membranes Eyes: General: appearance normal, both eyes and all related structures Sclera: sclerae normal Pupils: Equal, round and reactive pupils present EOM: EOMs intact bilaterally Resp: Other: Bibasilar crackles, + tachypnea without increased work of breathing Cardio: Rate: regular rate Rhythm: regular rhythm Other: S1-S2 present without murmur, rub, ectopy GI: Other: Abdomen soft, nondistended, nontender. Skin: General skin exam: normal color and no rashes or lesions noted Wounds: no wounds Neuro: Cranial nerves: Yes Equal, round and reactive pupils present Speech: normal speech Motor exam (neuro): 5/5 motor strength present throughout Sensory Exam: normal sensation Other: S1-S2 present without murmur, rub, ectopy Extrem: General: normal exam except as noted Other: +thrill and bruit to RUE fistula. old fistula to LUE. Psych: Mental Status: mental status grossly normal Affect: normal affect Other: Good insight and judgment, pleasant Objective Data Vital Signs Vital Signs: Vital Signs - 24 hr 08/09/24 17:00 08/09/24 17:49 08/09/24 20:29 Temperature 97.3 F L Pulse Rate 68 65 62 Respiratory Rate 23 H 21 H 20 Blood Pressure 125/47 L Pulse Oximetry 98 100 97 Oxygen Delivery BiPAP BiPAP Oxygen Flow Rate Fraction of Inspired Oxygen 08/09/24 21:25 08/09/24 23:20 08/09/24 23:22 Temperature 98.8 F Pulse Rate 63 61 63 Respiratory Rate 18 Blood Pressure 141/54 H Pulse Oximetry 100 Oxygen Delivery Oxygen Flow Rate Fraction of Inspired Oxygen 08/09/24 23:30 08/10/24 00:00 08/10/24 00:00 Temperature 98.6 F Pulse Rate 61 67 67 Respiratory Rate 18 18 Blood Pressure 139/59 L Pulse Oximetry 100 100 Oxygen Delivery BiPAP Oxygen Flow Rate Fraction of Inspired Oxygen 30 08/10/24 01:00 08/10/24 02:00 08/10/24 02:41 Temperature Pulse Rate 68 66 72 Respiratory Rate 26 H 26 H Blood Pressure Pulse Oximetry 100 Oxygen Delivery BiPAP Oxygen Flow Rate Fraction of Inspired Oxygen 08/10/24 02:50 08/10/24 03:55 08/10/24 04:00 Temperature Pulse Rate 65 65 65 Respiratory Rate 26 H 18 Blood Pressure Pulse Oximetry 99 Oxygen Delivery BiPAP Oxygen Flow Rate Fraction of Inspired Oxygen 30 08/10/24 04:00 08/10/24 05:00 08/10/24 06:00 Temperature 97.8 F Pulse Rate 64 68 71 Respiratory Rate 18 19 Blood Pressure 144/46 H Pulse Oximetry 100 99 Oxygen Delivery BiPAP Oxygen Flow Rate Fraction of Inspired Oxygen 08/10/24 07:51 08/10/24 07:51 08/10/24 07:51 Temperature Pulse Rate 65 65 Respiratory Rate 16 16 Blood Pressure Pulse Oximetry 100 100 Oxygen Delivery BiPAP BiPAP Oxygen Flow Rate Fraction of Inspired Oxygen 30 08/10/24 08:00 08/10/24 08:06 08/10/24 08:10 Temperature 98.3 F Pulse Rate 76 63 Respiratory Rate 23 H 16 Blood Pressure 144/46 H Pulse Oximetry 100 100 Oxygen Delivery BiPAP Oxygen Flow Rate Fraction of Inspired Oxygen 30 08/10/24 09:24 08/10/24 10:50 08/10/24 11:02 Temperature Pulse Rate Respiratory Rate Blood Pressure Pulse Oximetry 95 100 100 Oxygen Delivery Nasal Cannula Nasal Cannula Nasal Cannula Oxygen Flow Rate 3 3 1 Fraction of Inspired Oxygen 32 32 24 08/10/24 11:57 08/10/24 12:00 08/10/24 12:32 Temperature 98.4 F Pulse Rate 70 69 Respiratory Rate 18 Blood Pressure 136/48 L Pulse Oximetry 100 100 Oxygen Delivery Nasal Cannula Oxygen Flow Rate 1 Fraction of Inspired Oxygen 08/10/24 14:46 08/10/24 14:46 08/10/24 15:00 Temperature Pulse Rate 61 61 59 L Respiratory Rate 20 20 20 Blood Pressure Pulse Oximetry 100 Oxygen Delivery BiPAP Oxygen Flow Rate Fraction of Inspired Oxygen Intake/Output Intake/Output: Intake & Output 08/07/24 08/08/24 08/09/24 08/10/24 23:59 23:59 23:59 23:59 Intake Total 730 840 250 215 Output Total 1000 0 0 Balance 730 -160 250 215 Meds/Results Medications: Active Medications Generic Name Dose Route Start Last Admin Trade Name Freq PRN Reason Stop Dose Admin Acetaminophen 325 mg 08/10/24 00:39 08/10/24 12:30 Acetaminophen 325 Mg Tablet BY MOUTH 325 mg Q4H PRN Administration Pain 1-3 Albuterol/Ipratropium 3 ml 07/30/24 18:22 08/03/24 15:52 Ipratropium 0.5 Mg/Albuterol Sulfate 2.5 Mg Ampul.Neb 3 Ml INHALATION 3 ml Q6HRT PRN Administration Shortness Of Breath Or Wheezing Albuterol/Ipratropium 3 ml 08/09/24 20:00 08/10/24 14:46 Ipratropium 0.5 Mg/Albuterol Sulfate 2.5 Mg Ampul.Neb 3 Ml INHALATION 3 ml Q6HRT [facility] Administration Atorvastatin Calcium 40 mg 07/31/24 09:00 08/10/24 12:32 Atorvastatin 40 Mg Tablet PO 40 mg DAILY THERESE Administration Benzocaine 1 lozenge 07/30/24 18:22 07/30/24 21:28 Benzocaine/Menthol (*Bkc) 18 Ea Lozenge PO 1 lozenge PRN PRN Administration Sore Throat Benzonatate 100 mg 07/30/24 18:22 07/30/24 21:27 Benzonatate 100 Mg Capsule PO 100 mg TID PRN Administration Cough Calcium Carbonate 600 mg 08/01/24 17:30 08/10/24 12:48 Calcium Carbonate (Tums) 500 Mg (200 Mg Elemental) PO Not Given TID THERESE Carvedilol 3.125 mg 08/02/24 21:00 08/10/24 12:32 Carvedilol 3.125 Mg Tablet PO 3.125 mg Q12HR THERESE Administration Cyanocobalamin 500 mcg 07/31/24 09:00 08/10/24 12:32 Cyanocobalamin 500 Mcg Tablet PO 500 mcg DAILY THERESE Administration Dextrose 12.5 gm 07/30/24 18:29 Dextrose 50% 25 Gm/50 Ml Syringe IV PUSH PRN PRN Hypoglycemia Protocol Dicyclomine HCl 10 mg 07/30/24 21:35 Dicyclomine Hcl 10 Mg Capsule PO BID PRN Abdominal Pain Ergocalciferol 50,000 units 08/02/24 09:00 08/09/24 10:17 Ergocalciferol 50,000 Units Capsule PO 50,000 units WEEKLY THERESE Administration Glucagon 1 mg 07/30/24 18:29 Glucagon For Inj 1 Mg Vial IM PRN PRN Hypoglycemia Protocol Glucose 15 gm 07/30/24 18:29 Glucose Oral Gel 15 Gm Of Glucse In 37.5 Gm Tube PO PRN PRN Hypoglycemia Protocol Guaifenesin 600 mg 07/30/24 21:00 08/10/24 12:32 Guaifenesin 12 Hr 600 Mg Tabcr PO 600 mg Q12HR THERESE Administration Heparin Sodium (Porcine) 5,000 units 08/03/24 14:00 08/10/24 14:53 Heparin Sodium 5,000 Units/Ml Vial SUB-Q 5,000 units Q8HR THERESE Administration Dextrose 1,000 mls @ 100 mls/hr 07/30/24 18:29 Dextrose 5% 1,000 Ml IVPB PRN PRN Hypoglycemia Protocol Albumin Human 50 mls @ 999 mls/hr 08/01/24 07:00 08/06/24 13:46 Albutein IVPB 08/31/24 06:59 999 mls/hr Q10M PRN Administration HYPOTENSION Metronidazole 500 mg in 100 mls @ 100 mls/hr 08/09/24 18:00 08/10/24 06:44 Flagyl 500 Mg/Iso Soln 100 Ml IVPB Infused Q12H THERESE Infusion Albumin Human 50 mls @ 999 mls/hr 08/10/24 09:30 Albutein IVPB 08/11/24 09:29 Q10M PRN HYPOTENSION Insulin Aspart 1 - 2 units 08/01/24 22:20 08/08/24 22:26 Insulin Aspart (*Bkc) 100 Units/Ml SUB-Q 1 units HS THERESE Administration Protocol Insulin Aspart 2 - 5 units 08/10/24 00:00 08/10/24 11:39 Insulin Aspart (*Bkc) 100 Units/Ml SUB-Q Not Given Q6HR [facility] Protocol Insulin Glargine 35 units 08/02/24 21:00 08/07/24 23:21 Insulin Glargine (*Bkc) 100 Units/Ml SUB-Q Not Given HS [facility] Levofloxacin 500 mg 08/11/24 16:00 Levofloxacin 500 Mg Tablet PO Q48H [facility] Miconazole Nitrate 1 applic 08/06/24 11:52 Miconazole Nitrate 2% Cream 30 Gm Tube TOPICAL Q12HR PRN maceration * Home Med * 1.8 mg 07/31/24 21:00 Liraglutide [Victoza SUB-Q 08/30/24 20:59 2-Agustín] 0.6 Mg/0.1 HS [facility] Ml (18 Mg/3 Ml) Pen Injector Pantoprazole Sodium 40 mg 07/31/24 09:00 08/10/24 12:33 Pantoprazole 40 Mg Tablet PO 40 mg Q12HR THERESE Administration Prednisone 40 mg 08/03/24 11:55 08/10/24 12:31 Prednisone 20 Mg Tablet PO 40 mg DAILY@0800 [facility] Administration Sevelamer Carbonate 800 mg 07/31/24 08:00 08/10/24 12:48 Sevelamer Carbonate 800 Mg Tablet PO Not Given TIDWM [facility] Sitagliptin Phosphate 100 mg 07/31/24 09:00 07/31/24 08:56 Sitagliptin Phosphate 100 Mg Tablet PO 100 mg DAILY THERESE Administration Venlafaxine HCl 37.5 mg 08/03/24 11:50 08/09/24 10:17 Venlafaxine Hcl Xr 37.5 Mg Cap PO Not Given DAILY@0800 [facility] Vitamin B Complex/Folic Acid 1 cap 07/31/24 09:00 08/10/24 12:33 Vitamin B Cmplx/Vit C/Folic Ac 1 Capsule PO 1 cap DAILY THERESE Administration Radiology Results: ITS Impressions Chest CTA 08/06/24 08:36 IMPRESSION: 1. No pulmonary embolism. Sensitivity decreased in the smaller subsegmental pulmonary arteries due to respiratory motion. 2. Right middle and lower lobe with fluid and mucus in the bronchi consistent with pneumonia. 3. Small bilateral pleural effusions. 4. 4.3 cm fusiform ascending thoracic aortic aneurysm. 5. 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 Head CT 08/07/24 12:33 IMPRESSION: 1. Normal aging brain. No acute intracranial process. 2. Fluid/mucus in some of the paranasal sinuses consistent with acute sinusitis. Lumbar Spine CT 08/07/24 12:38 IMPRESSION: 1. Mild lumbar spondylosis. Brain MRI 08/08/24 16:41 IMPRESSION: 1. No acute intracranial process. 2. Moderate scattered calcific white matter T2 hyperintensity which within normal limits for age and consistent with chronic small vessel ischemic disease. 3. Fluid/mucus in some of the paranasal sinuses consistent with acute sinusitis. Chest X-Ray 08/09/24 11:39 IMPRESSION: 1. Mild pulmonary edema. 2. Airspace opacities at the lung bases, consistent with atelectasis versus pneumonia. 3. Small left pleural effusion. 4. Cardiomegaly. Labs Labs: Laboratory Results - last 24 hr 08/09/24 08/09/24 08/09/24 18:27 20:29 21:12 Puncture Site Left radial ABG pH 7.280 L* ABG pCO2 57.3 H ABG pO2 72.3 L ABG PO2/FiO2 Ratio 2.41 ABG HCO3 26.3 H ABG O2 Saturation 92.3 L ABG O2 Content 13.0 L ABG Base Excess -0.9 A-a Gradient 74.3 Oxyhemoglobin 94.5 Carboxyhemoglobin 1.2 Methemoglobin 0.3 Reduced Hemoglobin 4.0 Total Hemoglobin 9.7 L O2 Delivery Device Bipap O2 Liters/Min Not Reportable FiO2 30 Expiratory Pressure 5 Inspiratory Pressure 16 POC Capillary Glucose 197 H 198 H 08/10/24 08/10/24 08/10/24 00:31 06:51 07:51 Puncture Site Left radial ABG pH 7.351 ABG pCO2 42.9 ABG pO2 135.4 H ABG PO2/FiO2 Ratio 4.51 ABG HCO3 23.2 ABG O2 Saturation 98.6 ABG O2 Content 11.1 L ABG Base Excess -2.2 A-a Gradient 28.1 Oxyhemoglobin 97.5 Carboxyhemoglobin Methemoglobin Reduced Hemoglobin Total Hemoglobin 7.9 L O2 Delivery Device Bipap O2 Liters/Min Not Reportable FiO2 30 Expiratory Pressure 5 Inspiratory Pressure 16 POC Capillary Glucose 190 H 154 H 08/10/24 08/10/24 08/10/24 10:42 11:11 13:27 Puncture Site Left radial Left radial ABG pH 7.278 L* 7.280 L* ABG pCO2 53.3 H 57.0 H ABG pO2 107.8 H 76.3 L ABG PO2/FiO2 Ratio 3.37 3.18 ABG HCO3 24.4 26.2 H ABG O2 Saturation 97.3 93.4 L ABG O2 Content 13.4 L 13.3 L ABG Base Excess -2.6 -1.1 A-a Gradient 58.0 27.0 Oxyhemoglobin 97.1 94.9 Carboxyhemoglobin Methemoglobin Reduced Hemoglobin Total Hemoglobin 9.7 L 9.9 L O2 Delivery Device Nasal cannula Nasal cannula O2 Liters/Min 3.0 1.0 FiO2 32 24 Expiratory Pressure Inspiratory Pressure POC Capillary Glucose 128 H Quality VTE Prophylaxis VTE prophylaxis: mechanical ordered Hospitalist MIPS Advance Care Plan I have confirmed that the patient's Advanced Care Plan is present, code status is documented, or surrogate decision maker is listed in patient medical record.: Yes Medication Reconciliation I have utilized all available resources to obtain, update and review the patients current medications (includes all prescriptions, OTC, herbals, cannabis, and nutritional supplements).: Yes
[2024-08-10 16:27] LABS: Glucose Point of Care 209 mg/dl (65-105)
--- NOTE | 2024-08-10 17:43 | P.CONPL_ITS ---
Assessment and Plan Assessment and plan (1) Acute respiratory failure with hypoxia and hypercapnia: Code(s): J96.01 - Acute respiratory failure with hypoxia; J96.02 - Acute respiratory failure with hypercapnia Status: Acute Assessment and Plan: Patient had 3 days of cough, sore throat prior to admission; was at dialysis when she worsened, came to ER, had (+) RSV, admitted for treatment. There is no specific treatment, she had supportive care, improved. She was admitted with normal serum bicarbonate, developed acute mental status changes Aug 07 as she was close to being discharged after a week in-patient for RSV with ABGs showing increased pCO2, negative brain MRI, acute sinusitis. She responded to BiPAP which improved ventilation. Her WBC started to increase, antibiotics started, waxing and waning mental status. Today when I saw her 5 p.m., she was alert and clear thinking with family at bedside. Discussion was occurring regarding level of care. She is already DNR. She was worried about dying earlier today. Dr Costa addressed her hypercapnia, corrected elevated pCO2 which was 71.3 using BiPAP 14/5 with back up rate 14; pCO2 decreased to 42.9 after this BiPAP setting was used. She is having some increase in pCO2 again, not as severe, pCo2 57. This is not completely new. She has similar ABG in 2019, probably has some underlying pulmonary disease secondary to secondhand smoking or some decreased cardiac function, had moderate aortic stenosis noted on the last echo in November 2023. She is also higher in weight compared to her baseline dry weight. She has [address] Suarez considered a repeat dialysis treatment today but the patient was not treated due to staffing issues. Excessive total body weight may contribute to elevated CO2 retention. She is due to have a dialysis treatment tomorrow. (2) RSV infection: Qualifiers: RSV infection type: unspecified Qualified Code(s): B33.8 - Other specified viral diseases Code(s): B33.8 - Other specified viral diseases Status: Acute Assessment and Plan: RSV can have symptoms that last a couple months after infection including coughing, shortness of breath, wheezing. I did not hear wheezing today. She might benefit from inhaler therapy with ICS-LABA. Currently, she is on oral prednisone nad nebulized albuterol and ipratropium. Plan plan: 1) Increase her pulmonary hygiene; chest physiotherapy to right lung base in different positions, and use Cornet valve to help clear secretions t.i.d. Vibratory vest tomorrow am to see if this aids in clearing secretions. Add Mucinex 600 mg orally bid to thin secretions. Add nasal saline for sinusitis noted on brain MRI. 2) Nocturnal BiPAP with smaller difference between Inspiratory and Expiratory pressures. 06/14, back up rate 10, FiO2 30%. 2) She lost IV access; she is not in crisis mode, may be bale to turn the corner with oral antibiotics directed at most likely causes of infection in post RSV pneumonia, staph and strep. MRSA swab was negative on admission. Post RSV pneumonia can be viral, or bacterial with Staph and Strep often. Levaquin is good choice for these. MRSA swab was negative, does not likely has resistant staph. 3) IV access: I do not think that she is in need of central access now. If blood pressure drops, if she requires IV antibiotics with worsening oxygenation or infiltrates, or if another event occurs, consider IV access. 4) am labs: lactic acid, extended respiratory pathogen panel, repeat chest CT 5) stopped atorvastatin; use is for correction reduction in cardiac risk. 6) echo tomorrow, follow moderate aortic stenosis. She had echo through [facility] airframe technical officer group showing severe bi-atrial enlargement, moderate aortic stenosis. She has a systolic murmur across precordium. Her Ao.St. may be worsening, contributing to current situation. 7) RSV can have symptoms that last a couple months after infection including coughing, shortness of breath, wheezing. I did not hear wheezing today. She might benefit from inhaler therapy with ICS-LABA. Currently, she is on oral prednisone and nebulized albuterol-ipratropium. Thank you for asking me to see this patient. She does not appear to be close to the brink of , although we are just humans, and we are often wrong. She is alert, on 1 L/min O2, hemodynamically stable, and her son Topher just arrived so this may have energized her. She said her goodbyes earlier today. Now she is alert, not in distress, on 1 L/min. If she needs to be discharged on low flow O2, that does not mean that she will be on O2 indefinitely. She had an admission in 2019, required O2 for a few weeks. I believe that she underlying lung disease because she had similar ABG in 2019. She was exposed to second hand smoke for years, may benefit from PFTs +/- controller therapy for obstructive lung disease. She had an echo in November 2023; I want to repeat this as she had moderate aortic stenosis. HD tomorrow is expected to improve oxygenation and ventilation. I spoke with Dr Costa and Dr Suarez about this patient, and reviewed images and labs with the patient's 3 adult children. History of Present Illness History of Present Illness Consult date: 08/10/24 Requesting physician: Dmitri Costa MD Chief complaint: RSV, Hypoxia, Generalized weakness Narrative: pt was seen 08/10/2024 at 17:55 Room 202; Family members were present including daughters Renata, Tracie, and her son Topher; 2 cousins also were present. NEW: Shasta Obando is a 79-year-old woman, has ESRD on hemodialysis, was admitted about 08/01/24 from dialysis with increasing shortness of breath, cough and sore throat for 3 days, failed out patient amoxicillin. She had (+) RSV diagnosed on Jul 28. CTA on admission showed no PE, mucus in the airways and compressive atelectasis in the right base due to pleural effusion. WBC = 10 on admission, increased to 12.9 Aug 08, 11.4 Aug 09. She is not running a fever. She had an abrupt deterioration in her mentation on Aug 07, on the day that she was scheduled for discharge. Workup included brain MRI, nothing acute other than sinusitis. Yesterday Aug 09, ABGs were obtained showing acute increase in pCO2, see below. She has no history of smoking, however lived with her who smoked. Levaquin and IV Flagyl were started Feb 1 with increased WBC. She does not have sputum to send for evaluation. Today, Aug 2, her small left arm IV has started to fail, not effective for using for IV antibiotics. Her Levaquin was changed to oral. A repeat chest CT is ordered for tomorrow. The patient get HD , would have had an extra treatment this weekend however staffing did not allow for her to have a treatment today. Her weight is 58.3 kg; her admission weight was between 50-54 kg. during this admission, her Hep B core antibody and Hepatitis Be antibody turned positive. She was up to date with all vaccinations, specifically RSV, according to an office visit with primary care in February,. PMH: Osteoarthritis left knee, lumbar spondylosis, low back pain, Left sacroiliac pain. Sees Ortho and Pain management. HTN. DM, PAD with intervention by Dr Villa = performed atherectomy and balloon angioplasty of occluded left anterior tibial artery 03/20/2018, another peripheral intervention Dr Villa 09/26/2018; 2019 toe amputation by her clay thrower from the right foot. ESRD on HD, HTN, DM, peripheral arterial disease, NSAID related gastric ulceration and GI bleed in 2016 with transfusion, and has not been able to tolerate anticoagulation for atrial fibrillation; she has been on HD for over 10 years, managed by Dr Suarez. She has atrial fibrillation since 2016, a Watchman left atrial appendage occluder placed in 07/23/2018 at [facility] Dr Mccloud. Last cardiology note from [facility] was 04/03/2022. She is followed at [facility] office here, Dr Seay. She is not a renal transplant candidate due to medical complex illness. DATA * ABGs Her ABG in 2019 shows mild to moderate hypercapnia and hypoxemia, and she was discharged on O2 for a few weeks when she was in [place] for SNF. She has not required O2 since. These arterial blood gases from 2019 suggest that she has some underlying pulmonary dysfunction as she was hypoxemic and hypercapnic then, went home on O2. * 08/01/24 CTA chest : No pulmonary embolism. There is however moderate scattered respiratory motion which decreases sensitivity, mildly in the segmental pulmonary arteries and more significantly in the smaller more peripheral subsegmental pulmonary arteries. Small bilateral pleural effusions. There is consolidation a right middle and lower lobes with associated fluid/mucus in the bronchi suspicious for pneumonia. Mild dependent compressive atelectasis in the left lower lobe. No pulmonary edema. Cardiomegaly. Atherosclerotic coronary artery calcifications and aortic valve calcification. No pericardial effusion. Left atrial appendage occlusion device. Fusiform ascending thoracic aortic aneurysm measuring 4.3 cm in maximal diameter. This tapers to normal caliber of 2.8 cm at the isthmus. There is stenting of the right subclavian vein. No pathologically enlarged thoracic lymphadenopathy. Likely benign rim calcified 7 mm nodule at the inferior left thyroid lobe. Hepatic calcification consistent with old granulomatous disease. Moderate to severe atrophy at the upper pole of the left kidney. Moderate to severe thoracic spondylosis with prominent diffuse osteopenia relatively sparing the endplates in the spine which could be seen in the setting of renal osteodystrophy. IMPRESSION: 1. No pulmonary embolism. Sensitivity decreased in the smaller subsegmental pulmonary arteries due to respiratory motion. 2. Right middle and lower lobe with fluid and mucus in the bronchi consistent with pneumonia. 3. Small bilateral pleural effusions. 4. 4.3 cm fusiform ascending thoracic aortic aneurysm. 5. 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 Review of Systems 2 Review of Systems: All systems reviewed & are unremarkable except as noted in HPI and below [facility] Past Medical History Medical History (Updated 08/10/24 @ 19:29 by Mariah Henderson MD) GERD (gastroesophageal reflux disease) Colon polyps History of gastric ulcer IBS (irritable bowel syndrome) Tubular adenoma of colon Peripheral arterial disease History mid foot amputation. Spinal stenosis at L4-L5 level High-grade central canal stenosis noted on MRI February 2017 Pulmonary hypertension Echocardiogram August 2019: EF 65-70 %, indeterminate left ventricular diastolic function, mild biatrial enlargement, mild mitral valve regurgitation, moderate tricuspid regurgitation, mild pulmonary hypertension with RVSP of 39 Hiatal hernia Thoracic ascending aortic aneurysm 4.[address] scan from August 2019 Anemia of chronic disease Megaloblastic anemia Paroxysmal atrial fibrillation Type 2 diabetes mellitus Hemoglobin A1c was 6.6 in July 2019. Hypertension Osteoporosis Hyperlipidemia AV fistula Left upper extremity End stage renal disease on dialysis Dialysis days are Sunday, Sunday, and Sunday. She is on the transplant list at [place]. Osteoarthritis of both knees Staphylococcal septicemia (~2013) Closed fracture of lateral portion of right tibial plateau (~2014) Surgical History Surgical History Amputated toe of left foot History of bilateral cataract extraction Amputation at midfoot 5th digit right footAnd the great toe on the left History of arthroplasty of right ankle Presence of Watchman left atrial appendage closure device History of arthroscopy (~12/07/12) wrist History of colonoscopy (~12/02/15) History of knee replacement (~2015) right Family History Family History Father Hypertension Heart disease Mother Diabetes mellitus Hypertension Tobacco dependence Lung cancer Sibling Heart disease Social History Social History Social History: The patient is and lives in [place]. She is originally from [place]. 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 She has 2 daughters who live in [place]. She has 1 son who lives in [facility] . She designates her daughters as her surrogate decision makers. She is a lifelong nonsmoker. No alcohol or drug abuse. Primary care physician: Dr. David Coppola Code status: Full code Smoking status: Never smoker Second hand tobacco smoke exposure: No Alcohol intake: former Substance use: never Substance use type: does not use Do You Feel Safe in your Home?: Yes Lack of Transportation: No Lack of Food: Never True Current Housing: I Do Not Have Housing Concerned About Future Housing: No Difficulty Paying Gas/Electric Bills: No Difficulty Paying for Meds: No Currently Unemployed: No Education: High School Diploma/GED Difficulty w/ Childcare or Family Care: No Gender identity (if verbalized by the patient): Female Spiritual care concerns: No Agree to blood products: Yes Meds Home Medications and Allergies Home Medications ?Medication ?Instructions ?Recorded ?Confirmed ?Type cyanocobalamin (vitamin B-12) 500 500 mcg PO DAILY 06/12/19 07/30/24 History mcg tablet acetaminophen 500 mg tablet See Rx Instructions PO Q4H PRN Pain 02/20/20 07/30/24 History (Acetaminophen Extra Strength) sevelamer HCl 800 mg tablet 800 mg PO TID 03/29/20 07/30/24 History blood sugar diagnostic #500 ea 07/18/21 07/30/24 Rx atorvastatin 40 mg tablet 40 mg PO DAILY 10/25/21 07/30/24 History calcium carbonate (Tums) 1,500 mg PO TID 10/25/21 07/30/24 History vitamin B complex and vitamin C 1 cap PO DAILY 10/25/21 07/30/24 History no.20-folic acid 1 mg capsule (Renal Caps) carvedilol 12.5 mg tablet (Coreg) 3.125 mg PO BID 05/11/22 07/30/24 History foldiing walker #1 ea 01/11/23 07/30/24 Rx blood sugar diagnostic #500 ea 05/14/23 07/30/24 Rx pen needle, diabetic 32 gauge x #100 ea 05/14/23 07/30/24 Rx 1/5 denosumab 60 mg/mL subcutaneous 60 mg subcut [id number] #1 mL 06/01/23 07/30/24 Rx syringe (Prolia) liraglutide 0.6 mg/0.1 mL (18 mg/3 1.2 mg subcut HS 06/06/23 07/30/24 History mL) subcutaneous pen injector (MiiPharosza 2-Agustín) insulin degludec 100 unit/mL (3 10 unit (0.1 mL) subcut HS #15 mL 06/25/23 07/30/24 Rx mL) subcutaneous pen (Tresiba FlexTouch U-100 insulin) Assited gait device #1 ea 08/23/23 07/30/24 Rx clotrimazole 1 % topical cream 1 applic topical Q12H 09/27/23 07/30/24 History (Antifungal (clotrimazole)) lidocaine-prilocaine 2.5 %-2.5 % 1 applic topical ONCE 09/27/23 07/30/24 History topical cream dicyclomine 10 mg capsule See Rx Instructions .Route 02/12/24 07/30/24 Rx .COMPLEX #60 caps sitagliptin phosphate 100 mg 100 mg PO DAILY #90 tabs 02/15/24 07/30/24 Rx tablet (Januvia) pantoprazole 40 mg tablet,delayed 40 mg PO Q12HR #60 tabs 06/16/24 07/30/24 Rx release ergocalciferol (vitamin D2) 1,250 See Rx Instructions .Route 06/26/24 07/30/24 Rx mcg (50,000 unit) capsule .COMPLEX #13 caps trazodone 50 mg tablet 100 mg (2 x 50 mg) PO QHS #180 tabs 06/26/24 07/30/24 Rx amoxicillin 500 mg capsule 500 mg PO Q8H #21 caps 07/28/24 07/30/24 Rx Allergies Allergy/AdvReac Type Severity Reaction Status Date / Time cephalexin Allergy Mild Rash Verified 07/30/24 14:57 enalapril Allergy Unknown cough Verified 07/30/24 14:57 pioglitazone Allergy Unknown Unknown Verified 07/30/24 14:57 tramadol Allergy Unknown hallucinati Verified 07/30/24 14:57 ons gabapentin Allergy Hallucinati Verified 07/30/24 14:57 ng cefazolin AdvReac Mild nausea/dizz Verified 07/30/24 14:57 iness Vital Signs Vital Signs - 24 hr 08/09/24 17:49 08/09/24 20:29 08/09/24 21:25 Temperature 36.3 C L Pulse Rate 65 62 63 Respiratory Rate 21 H 20 Blood Pressure 125/47 L Pulse Oximetry 100 97 Oxygen Delivery BiPAP Oxygen Flow Rate Fraction of Inspired Oxygen 08/09/24 23:20 08/09/24 23:22 08/09/24 23:30 Temperature 37.1 C Pulse Rate 61 63 61 Respiratory Rate 18 18 Blood Pressure 141/54 H Pulse Oximetry 100 100 Oxygen Delivery BiPAP Oxygen Flow Rate Fraction of Inspired Oxygen 30 08/10/24 00:00 08/10/24 00:00 08/10/24 01:00 Temperature 37.0 C Pulse Rate 67 67 68 Respiratory Rate 18 26 H Blood Pressure 139/59 L Pulse Oximetry 100 100 Oxygen Delivery BiPAP Oxygen Flow Rate Fraction of Inspired Oxygen 08/10/24 02:00 08/10/24 02:41 08/10/24 02:50 Temperature Pulse Rate 66 72 65 Respiratory Rate 26 H 26 H Blood Pressure Pulse Oximetry Oxygen Delivery Oxygen Flow Rate Fraction of Inspired Oxygen 08/10/24 03:55 08/10/24 04:00 08/10/24 04:00 Temperature 36.6 C Pulse Rate 65 65 64 Respiratory Rate 18 18 Blood Pressure 144/46 H Pulse Oximetry 99 100 Oxygen Delivery BiPAP Oxygen Flow Rate Fraction of Inspired Oxygen 30 08/10/24 05:00 08/10/24 06:00 08/10/24 07:51 Temperature Pulse Rate 68 71 65 Respiratory Rate 19 16 Blood Pressure Pulse Oximetry 99 100 Oxygen Delivery BiPAP BiPAP Oxygen Flow Rate Fraction of Inspired Oxygen 08/10/24 07:51 08/10/24 07:51 08/10/24 08:00 Temperature Pulse Rate 65 Respiratory Rate 16 Blood Pressure Pulse Oximetry 100 100 Oxygen Delivery BiPAP BiPAP Oxygen Flow Rate Fraction of Inspired Oxygen 30 30 08/10/24 08:06 08/10/24 08:10 08/10/24 09:24 Temperature 36.8 C Pulse Rate 76 63 Respiratory Rate 23 H 16 Blood Pressure 144/46 H Pulse Oximetry 100 95 Oxygen Delivery Nasal Cannula Oxygen Flow Rate 3 Fraction of Inspired Oxygen 32 08/10/24 10:50 08/10/24 11:02 08/10/24 11:57 Temperature 36.9 C Pulse Rate 70 Respiratory Rate 18 Blood Pressure 136/48 L Pulse Oximetry 100 100 100 Oxygen Delivery Nasal Cannula Nasal Cannula Oxygen Flow Rate 3 1 Fraction of Inspired Oxygen 32 24 08/10/24 12:00 08/10/24 12:32 08/10/24 14:46 Temperature Pulse Rate 69 61 Respiratory Rate 20 Blood Pressure Pulse Oximetry 100 100 Oxygen Delivery Nasal Cannula BiPAP Oxygen Flow Rate 1 Fraction of Inspired Oxygen 08/10/24 14:46 08/10/24 15:00 08/10/24 16:47 Temperature 36.3 C L Pulse Rate 61 59 L 63 Respiratory Rate 20 20 18 Blood Pressure 133/48 L Pulse Oximetry 97 Oxygen Delivery Oxygen Flow Rate Fraction of Inspired Oxygen Exam 2 Narrative: GEN: Alert, speech is clear, family is present to ask detailed questions during the history She is not in distress. She is wearing nasal cannula 1 L/minute saturation is 97-100% HEENT: pupils are equal, EOMI, symmetrical face; oral membranes moist, natural teeth; no redness or exudate. Mallampati III airway NECK: Trachea is midline CHEST: Equal air entry, symmetric excursion, clear breath sounds CV: irregularly irregular S1S2 with III/ systolic murmur across precordium, no gallop ABD : (+) bowel sounds Extremities : no clubbing, cyanosis, or edema; LUE fistula PSYCH: normal thought and speech, gait is not tested Results Laboratory Findings 08/10/24 20:14 08/10/24 20:14 ABG, PT/INR, D-dimer: ABG ABG pH 7.280 (7.350-7.450) L* 08/10/24 13:27 ABG pCO2 57.0 mmHg (35.0-45.0) H 08/10/24 13:27 ABG pO2 76.3 mmHg (80.0-100.0) L 08/10/24 13:27 ABG O2 Saturation 93.4 % (95.0-100.0) L 08/10/24 13:27 Abnormal lab findings: Abnormal Labs 07/30/24 07/30/24 07/30/24 15:37 16:07 21:05 WBC RBC 2.95 L Hgb 9.7 L Hct 31.0 L MCV 105.1 H MCHC 31.3 L RDW 16.4 H Plt Count 112 L MPV 12.5 H Immature Gran % (Auto) Neut % (Auto) 78.6 H Lymph % (Auto) 9.2 L [place] % (Auto) 10.9 H Baso % (Auto) Lymph # (Auto) 0.79 L [place] # (Auto) 0.9 H Abs Immat Gran (auto) Absolute Neuts (auto) 6.8 H Absolute Nucleated RBC 0.040 H Nucleated RBC % 0.5 H ABG pH ABG pCO2 ABG pO2 ABG HCO3 ABG O2 Saturation ABG O2 Content Total Hemoglobin Sodium 135 L Potassium 2.9 L Chloride 90 L Carbon Dioxide 36 H BUN 21 H Creatinine 2.01 H Estimated GFR 24 L Glucose 183 H POC Capillary Glucose 190 H Hemoglobin A1c Calcium 7.5 L Magnesium Total Protein 6.0 L Vitamin B12 Folate Hep B Core Total Ab Hepatitis Be Antibody RSV (RT-PCR) Positive A 07/31/24 07/31/24 07/31/24 05:31 08:11 11:59 WBC RBC 2.89 L Hgb 9.4 L Hct 31.3 L MCV 108.3 H MCHC 30.0 L RDW 16.6 H Plt Count 101 L MPV 12.0 H Immature Gran % (Auto) Neut % (Auto) 74.3 H Lymph % (Auto) 10.7 L [place] % (Auto) 13.8 H Baso % (Auto) Lymph # (Auto) 0.80 L [place] # (Auto) 1.0 H Abs Immat Gran (auto) 0.04 H Absolute Neuts (auto) Absolute Nucleated RBC 0.020 H Nucleated RBC % 0.3 H ABG pH ABG pCO2 ABG pO2 ABG HCO3 ABG O2 Saturation ABG O2 Content Total Hemoglobin Sodium 136 L Potassium Chloride 90 L Carbon Dioxide 38 H BUN 29 H Creatinine 3.17 H Estimated GFR 14 L Glucose 139 H POC Capillary Glucose 188 H 284 H Hemoglobin A1c 7.1 H Calcium 7.2 L Magnesium Total Protein 6.0 L Vitamin B12 Folate Hep B Core Total Ab Hepatitis Be Antibody RSV (RT-PCR) 07/31/24 07/31/24 08/01/24 17:21 20:08 06:34 WBC RBC Hgb Hct MCV MCHC RDW Plt Count MPV Immature Gran % (Auto) Neut % (Auto) Lymph % (Auto) [place] % (Auto) Baso % (Auto) Lymph # (Auto) [place] # (Auto) Abs Immat Gran (auto) Absolute Neuts (auto) Absolute Nucleated RBC Nucleated RBC % ABG pH ABG pCO2 ABG pO2 ABG HCO3 ABG O2 Saturation ABG O2 Content Total Hemoglobin Sodium Potassium Chloride Carbon Dioxide BUN Creatinine Estimated GFR Glucose POC Capillary Glucose 399 H 358 H 150 H Hemoglobin A1c Calcium Magnesium Total Protein Vitamin B12 Folate Hep B Core Total Ab Hepatitis Be Antibody RSV (RT-PCR) 08/01/24 08/01/24 08/01/24 07:35 08:47 15:00 WBC RBC 2.75 L Hgb 8.8 L Hct 29.3 L MCV 106.5 H MCHC 30.0 L RDW 16.9 H Plt Count 100 L MPV 11.6 H Immature Gran % (Auto) 0.6 H Neut % (Auto) 73.3 H Lymph % (Auto) 13.2 L [place] % (Auto) 11.6 H Baso % (Auto) Lymph # (Auto) [place] # (Auto) 0.8 H Abs Immat Gran (auto) 0.04 H Absolute Neuts (auto) Absolute Nucleated RBC Nucleated RBC % ABG pH ABG pCO2 ABG pO2 ABG HCO3 ABG O2 Saturation ABG O2 Content Total Hemoglobin Sodium 134 L Potassium Chloride 88 L Carbon Dioxide 38 H BUN 46 H D Creatinine 5.40 H Estimated GFR 8 L Glucose 139 H POC Capillary Glucose 137 H 176 H Hemoglobin A1c Calcium 7.2 L Magnesium Total Protein Vitamin B12 Folate Hep B Core Total Ab Hepatitis Be Antibody RSV (RT-PCR) 08/01/24 08/01/24 08/01/24 17:19 20:37 22:28 WBC RBC Hgb Hct MCV MCHC RDW Plt Count MPV Immature Gran % (Auto) Neut % (Auto) Lymph % (Auto) [place] % (Auto) Baso % (Auto) Lymph # (Auto) [place] # (Auto) Abs Immat Gran (auto) Absolute Neuts (auto) Absolute Nucleated RBC Nucleated RBC % ABG pH ABG pCO2 ABG pO2 ABG HCO3 ABG O2 Saturation ABG O2 Content Total Hemoglobin Sodium Potassium Chloride Carbon Dioxide BUN Creatinine Estimated GFR Glucose POC Capillary Glucose 296 H 300 H 281 H Hemoglobin A1c Calcium Magnesium Total Protein Vitamin B12 Folate Hep B Core Total Ab Hepatitis Be Antibody RSV (RT-PCR) 08/02/24 08/02/24 08/02/24 05:44 08:43 11:49 WBC RBC 2.76 L Hgb 8.9 L Hct 30.4 L MCV 110.1 H MCHC 29.3 L RDW 17.2 H Plt Count 106 L MPV 11.4 H Immature Gran % (Auto) 0.8 H Neut % (Auto) Lymph % (Auto) 14.3 L [place] % (Auto) 13.4 H Baso % (Auto) Lymph # (Auto) [place] # (Auto) 1.0 H Abs Immat Gran (auto) 0.06 H Absolute Neuts (auto) Absolute Nucleated RBC 0.020 H Nucleated RBC % 0.3 H ABG pH ABG pCO2 ABG pO2 ABG HCO3 ABG O2 Saturation ABG O2 Content Total Hemoglobin Sodium 136 L Potassium Chloride 97 L Carbon Dioxide 32 H BUN 25 H D Creatinine 3.28 H Estimated GFR 14 L Glucose 172 H POC Capillary Glucose 160 H 241 H Hemoglobin A1c Calcium 8.2 L Magnesium Total Protein 6.0 L Vitamin B12 Folate Hep B Core Total Ab Hepatitis Be Antibody RSV (RT-PCR) 08/02/24 08/02/24 08/03/24 17:30 20:35 06:04 WBC RBC 2.83 L Hgb 9.1 L Hct 30.8 L MCV 108.8 H MCHC 29.5 L RDW 17.2 H Plt Count 120 L MPV 12.1 H Immature Gran % (Auto) 0.9 H Neut % (Auto) 73.7 H Lymph % (Auto) 12.5 L [place] % (Auto) 11.8 H Baso % (Auto) Lymph # (Auto) [place] # (Auto) 1.1 H Abs Immat Gran (auto) 0.08 H Absolute Neuts (auto) 6.8 H Absolute Nucleated RBC 0.020 H Nucleated RBC % ABG pH ABG pCO2 ABG pO2 ABG HCO3 ABG O2 Saturation ABG O2 Content Total Hemoglobin Sodium 134 L Potassium Chloride 96 L Carbon Dioxide BUN 40 H D Creatinine 5.27 H Estimated GFR 8 L Glucose 147 H POC Capillary Glucose 263 H 215 H Hemoglobin A1c Calcium Magnesium Total Protein 6.0 L Vitamin B12 Folate Hep B Core Total Ab Hepatitis Be Antibody RSV (RT-PCR) 08/03/24 08/03/24 08/03/24 08:45 12:01 17:20 WBC RBC Hgb Hct MCV MCHC RDW Plt Count MPV Immature Gran % (Auto) Neut % (Auto) Lymph % (Auto) [place] % (Auto) Baso % (Auto) Lymph # (Auto) [place] # (Auto) Abs Immat Gran (auto) Absolute Neuts (auto) Absolute Nucleated RBC Nucleated RBC % ABG pH ABG pCO2 ABG pO2 ABG HCO3 ABG O2 Saturation ABG O2 Content Total Hemoglobin Sodium Potassium Chloride Carbon Dioxide BUN Creatinine Estimated GFR Glucose POC Capillary Glucose 143 H 174 H 214 H Hemoglobin A1c Calcium Magnesium Total Protein Vitamin B12 Folate Hep B Core Total Ab Hepatitis Be Antibody RSV (RT-PCR) 08/03/24 08/04/24 08/04/24 22:06 07:12 08:44 WBC RBC 2.77 L Hgb 9.0 L Hct 30.5 L MCV 110.1 H MCHC 29.5 L RDW 16.8 H Plt Count 108 L MPV 12.4 H Immature Gran % (Auto) 1.0 H Neut % (Auto) 84.5 H Lymph % (Auto) 9.5 L [place] % (Auto) Baso % (Auto) 0.1 L Lymph # (Auto) 0.75 L [place] # (Auto) Abs Immat Gran (auto) 0.08 H Absolute Neuts (auto) Absolute Nucleated RBC Nucleated RBC % ABG pH ABG pCO2 ABG pO2 ABG HCO3 ABG O2 Saturation ABG O2 Content Total Hemoglobin Sodium 129 L Potassium Chloride 94 L Carbon Dioxide BUN 58 H D Creatinine 6.69 H Estimated GFR 6 L Glucose 213 H POC Capillary Glucose 267 H 191 H Hemoglobin A1c Calcium Magnesium 2.5 H Total Protein 6.0 L Vitamin B12 Folate Hep B Core Total Ab Hepatitis Be Antibody RSV (RT-PCR) 08/04/24 08/04/24 08/05/24 11:45 20:17 05:30 WBC RBC 2.79 L Hgb 9.0 L Hct 30.6 L MCV 109.7 H MCHC 29.4 L RDW 17.2 H Plt Count 114 L MPV 12.1 H Immature Gran % (Auto) 0.8 H Neut % (Auto) 87.7 H Lymph % (Auto) 6.7 L [place] % (Auto) Baso % (Auto) 0.1 L Lymph # (Auto) 0.58 L [place] # (Auto) Abs Immat Gran (auto) 0.07 H Absolute Neuts (auto) 7.6 H Absolute Nucleated RBC 0.030 H Nucleated RBC % 0.3 H ABG pH ABG pCO2 ABG pO2 ABG HCO3 ABG O2 Saturation ABG O2 Content Total Hemoglobin Sodium Potassium Chloride Carbon Dioxide BUN 23 H D Creatinine 2.92 H Estimated GFR 16 L Glucose 149 H POC Capillary Glucose 197 H 142 H Hemoglobin A1c Calcium Magnesium Total Protein 6.0 L Vitamin B12 Folate Hep B Core Total Ab Hepatitis Be Antibody RSV (RT-PCR) 08/05/24 08/05/24 08/05/24 08:13 11:31 16:49 WBC RBC Hgb Hct MCV MCHC RDW Plt Count MPV Immature Gran % (Auto) Neut % (Auto) Lymph % (Auto) [place] % (Auto) Baso % (Auto) Lymph # (Auto) [place] # (Auto) Abs Immat Gran (auto) Absolute Neuts (auto) Absolute Nucleated RBC Nucleated RBC % ABG pH ABG pCO2 ABG pO2 ABG HCO3 ABG O2 Saturation ABG O2 Content Total Hemoglobin Sodium Potassium Chloride Carbon Dioxide BUN Creatinine Estimated GFR Glucose POC Capillary Glucose 134 H 143 H 222 H Hemoglobin A1c Calcium Magnesium Total Protein Vitamin B12 Folate Hep B Core Total Ab Hepatitis Be Antibody RSV (RT-PCR) 08/05/24 08/06/24 08/07/24 21:27 05:30 05:34 WBC RBC 2.94 L 2.88 L Hgb 9.5 L 9.3 L Hct 32.6 L 32.1 L MCV 110.9 H 111.5 H MCHC 29.1 L 29.0 L RDW 17.7 H 17.9 H Plt Count 131 L 116 L MPV 12.3 H 11.9 H Immature Gran % (Auto) 0.6 H 0.7 H Neut % (Auto) 79.5 H 78.2 H Lymph % (Auto) 10.4 L 11.5 L [place] % (Auto) 9.4 H 9.4 H Baso % (Auto) 0.1 L Lymph # (Auto) [place] # (Auto) 0.9 H 0.9 H Abs Immat Gran (auto) 0.06 H 0.07 H Absolute Neuts (auto) 7.7 H 7.8 H Absolute Nucleated RBC 0.040 H 0.080 H Nucleated RBC % 0.4 H 0.8 H ABG pH ABG pCO2 ABG pO2 ABG HCO3 ABG O2 Saturation ABG O2 Content Total Hemoglobin Sodium 133 L 135 L Potassium Chloride 97 L 95 L Carbon Dioxide 31 H BUN 38 H D 22 H D Creatinine 4.66 H 2.53 H Estimated GFR 9 L 18 L Glucose 140 H POC Capillary Glucose 205 H Hemoglobin A1c Calcium Magnesium Total Protein 6.0 L 6.0 L Vitamin B12 Folate Hep B Core Total Ab Hepatitis Be Antibody RSV (RT-PCR) 08/07/24 08/07/24 08/07/24 08:44 11:48 15:26 WBC RBC Hgb Hct MCV MCHC RDW Plt Count MPV Immature Gran % (Auto) Neut % (Auto) Lymph % (Auto) [place] % (Auto) Baso % (Auto) Lymph # (Auto) [place] # (Auto) Abs Immat Gran (auto) Absolute Neuts (auto) Absolute Nucleated RBC Nucleated RBC % ABG pH ABG pCO2 ABG pO2 ABG HCO3 ABG O2 Saturation ABG O2 Content Total Hemoglobin Sodium Potassium Chloride Carbon Dioxide BUN Creatinine Estimated GFR Glucose POC Capillary Glucose 64 L 106 H Hemoglobin A1c Calcium Magnesium Total Protein Vitamin B12 > 1000.0 H Folate > 20.0 H Hep B Core Total Ab Reactive A Hepatitis Be Antibody Reactive A RSV (RT-PCR) 08/07/24 08/08/24 08/08/24 20:58 06:07 14:34 WBC 12.9 H RBC 2.85 L Hgb 9.1 L Hct 31.9 L MCV 111.9 H MCHC 28.5 L RDW 17.7 H Plt Count 128 L MPV 12.1 H Immature Gran % (Auto) 0.8 H Neut % (Auto) 81.8 H Lymph % (Auto) 8.6 L [place] % (Auto) 8.7 H Baso % (Auto) 0.1 L Lymph # (Auto) [place] # (Auto) 1.1 H Abs Immat Gran (auto) 0.10 H Absolute Neuts (auto) 10.5 H Absolute Nucleated RBC 0.080 H Nucleated RBC % 0.6 H ABG pH ABG pCO2 ABG pO2 ABG HCO3 ABG O2 Saturation ABG O2 Content Total Hemoglobin Sodium 133 L Potassium Chloride 93 L Carbon Dioxide 31 H BUN 38 H D Creatinine 4.05 H Estimated GFR 11 L Glucose POC Capillary Glucose 111 H 127 H Hemoglobin A1c Calcium Magnesium Total Protein 6.0 L Vitamin B12 Folate Hep B Core Total Ab Hepatitis Be Antibody RSV (RT-PCR) 08/08/24 08/08/24 08/09/24 17:12 20:45 08:52 WBC RBC Hgb Hct MCV MCHC RDW Plt Count MPV Immature Gran % (Auto) Neut % (Auto) Lymph % (Auto) [place] % (Auto) Baso % (Auto) Lymph # (Auto) [place] # (Auto) Abs Immat Gran (auto) Absolute Neuts (auto) Absolute Nucleated RBC Nucleated RBC % ABG pH ABG pCO2 ABG pO2 ABG HCO3 ABG O2 Saturation ABG O2 Content Total Hemoglobin Sodium Potassium Chloride Carbon Dioxide BUN Creatinine Estimated GFR Glucose POC Capillary Glucose 167 H 212 H 149 H Hemoglobin A1c Calcium Magnesium Total Protein Vitamin B12 Folate Hep B Core Total Ab Hepatitis Be Antibody RSV (RT-PCR) 08/09/24 08/09/24 08/09/24 10:12 12:03 12:11 WBC 11.4 H RBC 2.83 L Hgb 9.2 L Hct 31.6 L MCV 111.7 H MCHC 29.1 L RDW 18.4 H Plt Count 107 L MPV 12.3 H Immature Gran % (Auto) Neut % (Auto) 85.0 H Lymph % (Auto) 8.2 L [place] % (Auto) Baso % (Auto) 0.1 L Lymph # (Auto) [place] # (Auto) 0.7 H Abs Immat Gran (auto) 0.06 H Absolute Neuts (auto) 9.7 H Absolute Nucleated RBC 0.130 H Nucleated RBC % 1.1 H ABG pH 7.152 L* ABG pCO2 71.3 H* ABG pO2 137.5 H ABG HCO3 ABG O2 Saturation ABG O2 Content 13.6 L Total Hemoglobin 9.7 L Sodium 133 L Potassium Chloride Carbon Dioxide BUN 23 H D Creatinine 2.76 H Estimated GFR 17 L Glucose 180 H POC Capillary Glucose 268 H Hemoglobin A1c Calcium Magnesium Total Protein 6.0 L Vitamin B12 Folate Hep B Core Total Ab Hepatitis Be Antibody RSV (RT-PCR) 08/09/24 08/09/24 08/09/24 15:15 18:27 20:29 WBC RBC Hgb Hct MCV MCHC RDW Plt Count MPV Immature Gran % (Auto) Neut % (Auto) Lymph % (Auto) [place] % (Auto) Baso % (Auto) Lymph # (Auto) [place] # (Auto) Abs Immat Gran (auto) Absolute Neuts (auto) Absolute Nucleated RBC Nucleated RBC % ABG pH 7.245 L* 7.280 L* ABG pCO2 61.2 H* 57.3 H ABG pO2 72.3 L ABG HCO3 26.3 H ABG O2 Saturation 92.3 L ABG O2 Content 13.5 L 13.0 L Total Hemoglobin 9.8 L 9.7 L Sodium Potassium Chloride Carbon Dioxide BUN Creatinine Estimated GFR Glucose POC Capillary Glucose 197 H Hemoglobin A1c Calcium Magnesium Total Protein Vitamin B12 Folate Hep B Core Total Ab Hepatitis Be Antibody RSV (RT-PCR) 08/09/24 08/10/24 08/10/24 21:12 00:31 06:51 WBC RBC Hgb Hct MCV MCHC RDW Plt Count MPV Immature Gran % (Auto) Neut % (Auto) Lymph % (Auto) [place] % (Auto) Baso % (Auto) Lymph # (Auto) [place] # (Auto) Abs Immat Gran (auto) Absolute Neuts (auto) Absolute Nucleated RBC Nucleated RBC % ABG pH ABG pCO2 ABG pO2 ABG HCO3 ABG O2 Saturation ABG O2 Content Total Hemoglobin Sodium Potassium Chloride Carbon Dioxide BUN Creatinine Estimated GFR Glucose POC Capillary Glucose 198 H 190 H 154 H Hemoglobin A1c Calcium Magnesium Total Protein Vitamin B12 Folate Hep B Core Total Ab Hepatitis Be Antibody RSV (RT-PCR) 08/10/24 08/10/24 08/10/24 07:51 10:42 11:11 WBC RBC Hgb Hct MCV MCHC RDW Plt Count MPV Immature Gran % (Auto) Neut % (Auto) Lymph % (Auto) [place] % (Auto) Baso % (Auto) Lymph # (Auto) [place] # (Auto) Abs Immat Gran (auto) Absolute Neuts (auto) Absolute Nucleated RBC Nucleated RBC % ABG pH 7.278 L* ABG pCO2 53.3 H ABG pO2 135.4 H 107.8 H ABG HCO3 ABG O2 Saturation ABG O2 Content 11.1 L 13.4 L Total Hemoglobin 7.9 L 9.7 L Sodium Potassium Chloride Carbon Dioxide BUN Creatinine Estimated GFR Glucose POC Capillary Glucose 128 H Hemoglobin A1c Calcium Magnesium Total Protein Vitamin B12 Folate Hep B Core Total Ab Hepatitis Be Antibody RSV (RT-PCR) 08/10/24 08/10/24 13:27 16:20 WBC RBC Hgb Hct MCV MCHC RDW Plt Count MPV Immature Gran % (Auto) Neut % (Auto) Lymph % (Auto) [place] % (Auto) Baso % (Auto) Lymph # (Auto) [place] # (Auto) Abs Immat Gran (auto) Absolute Neuts (auto) Absolute Nucleated RBC Nucleated RBC % ABG pH 7.280 L* ABG pCO2 57.0 H ABG pO2 76.3 L ABG HCO3 26.2 H ABG O2 Saturation 93.4 L ABG O2 Content 13.3 L Total Hemoglobin 9.9 L Sodium Potassium Chloride Carbon Dioxide BUN Creatinine Estimated GFR Glucose POC Capillary Glucose 209 H Hemoglobin A1c Calcium Magnesium Total Protein Vitamin B12 Folate Hep B Core Total Ab Hepatitis Be Antibody RSV (RT-PCR)
[2024-08-10 18:15] LABS: Glucose Point of Care 257 mg/dl (65-105)
[2024-08-10] MEDS: INSULIN ASPART (*BKC) 100 UNITS/ML SUB-Q ×2 (18:22→23:49)
--- NOTE | 2024-08-10 19:30 | PC.NURSE ---
Pt left floor at this time for dialysis.
[2024-08-10 20:31] LABS: Hematocrit 27.9 % (37.0-47.0); Hemoglobin 8.6 g/dL (12.0-15.0); Immature Granulocyte Absolute 0.06 K/mm3 (0.00-0.031); Immature Granulocyte Percent A 0.8 % (0-0.5); Lymphocytes Absolute Auto 0.41 K/mm3 (0.9-3.2); Lymphocytes Percent Auto 5.2 % (18.3-44.2); Mean Corpuscular HGB Conc 30.8 g/dl (32-36); Mean Corpuscular Hemoglobin 32.7 pg (26-34); Mean Corpuscular Volume 106.1 fl (80-100); Mean Platelet Volume 11.4 fl (7.4-10.4); Monocytes Absolute Auto 0.1 K/mm3 (0.1-0.6); Monocytes Percent Auto 1.5 % (2.6-8.5); Neutrophils Absolute Auto 7.3 K/mm3 (1.3-6.7); Neutrophils Percent Auto 92.5 % (45.5-73.1); Nucleated Red Blood Cells Perc 0.4 % (0.0-0.2); Platelet Count Result 124 k/mm3 (150-375); Red Blood Count 2.63 M/mm3 (4.2-5.4); Red Cell Distribution Width 17.7 % (11.5-14.5); White Blood Count 7.9 K/mm3 (4.5-10.0)
[2024-08-10 20:44] LABS: Alanine Aminotransferase 14 U/L (6-35); Albumin Level 3.6 g/dL (3.5-5.1); Alkaline Phosphatase 81 U/L (38-126); Anion Gap 10 mmol/L (4-12); Aspartate Amino Transferase 18 U/L (14-36); Bilirubin,Total 1.3 mg/dL (0.2-1.3); Blood Urea Nitrogen 43 mg/dL (7-17); Calcium 8.1 mg/dL (8.4-10.2); Carbon Dioxide 23 mmol/L (22-30); Chloride 95 mmol/L (98-107); Estimated Glomerular Filt Rate 10; Glucose 225 mg/dL (65-110); Potassium 4.3 mmol/L (3.4-5.0); Sodium 128 mmol/L (137-145)
[2024-08-10 21:12] LABS: Anisocytosis 1+; Basophilic Stippling 1+; Platelet Estimate Decreased (Adequate); Polychromasia 1+
[2024-08-10 21:13] LABS: Burr Cells 1+; Macrocytosis 1+ (NORMAL); Schistocytes None Seen
--- NOTE | 2024-08-10 23:30 | PC.NURSE ---
Patient back from dialysis at this time. 3L removed.
[2024-08-11] VITALS (42 sets, daily range): BP systolic 104–178; BP diastolic 37–75; PULSE 47–102; RESP 15–22; TEMP 36.6–37.3; O2SAT 95–100
--- NOTE | 2024-08-11 | ECHO_ITS ---
Patient Info Name: Shasta Obando Age: 79 years : 1945 Gender: Female Ht: 48 in Wt: 128 lbs BSA: 1.45 m2 HR: 56 bpm BP: 127 / 41 mmHg Heart Rhythm: Atrial Fibrillation Technical Quality: Good Exam Date: 08/11/2024 2:06 PM Exam Location: Echo Lab Patient Status: Inpatient Admit Date: 08/01/2024 Staff Ordering Physician: Mariah Henderson MD Inspector Wire Rope: Emeli Tate RDCS Attending Provider: Yeimy [place] APRN Referring Physician: Beatriz HARTMANN; Exam Type: CA echo doppler color flow Study Info Indications - R06.02 - Shortness of breath Complete two-dimensional, color flow and Doppler transthoracic echocardiogram is performed. Summary 1. Complete two-dimensional, color flow and Doppler transthoracic echocardiogram is performed. 2. Left ventricular chamber dimension is normal. 3. Left ventricular systolic function is normal, estimated at 65-70%. 4. There is mild concentric increased left ventricular wall thickness. 5. The left ventricular diastolic function is abnormal. 6. E/e' 15 is elevated. 7. Atrial fibrillation. 8. Left atrial chamber dimension is severely enlarged. 9. Right atrial chamber dimension is severely enlarged. 10. There is moderate aortic valve sclerosis. 11. There is mild aortic valve stenosis with a peak velocity of 241 cm/s, mean gradient of 11 mmHg, and aortic valve area of 1.6 cm2. 12. The mitral valve has moderately calcified annulus. 13. There is mild mitral valve regurgitation. 14. There is mild tricuspid valve regurgitation. 15. Moderate pulmonary hypertension, estimated pulmonary arterial systolic pressure is 59 mmHg. 16. There is trace pulmonic regurgitation. Left Ventricle Atrial fibrillation. E/e' 15 is elevated. Left ventricular chamber dimension is normal. Left ventricular systolic function is normal, estimated at 65-70%. There is mild concentric increased left ventricular wall thickness. The left ventricular diastolic function is abnormal. Right Ventricle Right ventricular chamber dimension is normal. Right ventricular systolic function is normal. Left Atria Left atrial chamber dimension is severely enlarged. Right Atria Right atrial chamber dimension is severely enlarged. Aortic Valve The aortic valve is trileaflet. There is moderate aortic valve sclerosis. There is mild aortic valve stenosis with a peak velocity of 241 cm/s, mean gradient of 11 mmHg, and aortic valve area of 1.6 cm2. There is no aortic valve regurgitation. Pulmonic Valve There is trace pulmonic regurgitation. Mitral Valve The mitral valve has moderately calcified annulus. There is no mitral valve stenosis. There is mild mitral valve regurgitation. Tricuspid Valve There is mild tricuspid valve regurgitation. Moderate pulmonary hypertension, estimated pulmonary arterial systolic pressure is 59 mmHg. Pericardium/Pleural There is no pericardial effusion. Inferior Vena Cava Normal inferior vena cava with >50% collapse upon inspiration consistent with normal right atrial pressure, 5 mmHg. Aorta The aortic root size at the sinus of Valsalva is normal. Left Ventricular Outflow Tract Name Value Normal LVOT 2D LVOT Diameter 1.9 cm LVOT Doppler LVOT Peak Gradient 9 mmHg LVOT Mean Gradient 4 mmHg LVOT VTI 29 cm LVOT VTI/AV VTI Ratio 0.6 LVOT Stroke Volume 78 ml LVOT CO 5.3 l/min LVOT CI 3.6 l/min/m2 Pulmonic Valve Name Value Normal RVOT Doppler RVOT Peak Gradient 1 mmHg PV Doppler PV Peak Gradient 7 mmHg Mitral Valve Name Value Normal MV Doppler MV Peak Gradient 11 mmHg MV Mean Gradient 3 mmHg MV Decel Grayson 1,079 cm/s2 MV PHT 38 ms MV Area (PHT) 5.8 cm2 4.0-5.0 MV Area (Cont Eq VTI) 2.4 cm2 MV Diastolic Function MV E Peak Velocity 141 cm/s MV A Peak Velocity 1 cm/s MV E/A 155.5 MV Decel Time 130 ms MV Annular TDI MV E/e' (Septal) 17.1 <=8.0 MV E/e' (Lateral) 14.7 <=8.0 MV E/e' (Average) 15.9 Tricuspid Valve Name Value Normal TV Regurgitation Doppler TR Peak Velocity 368 cm/s TR Peak Gradient 45 mmHg Estimated PAP/RSVP RA Pressure 5 mmHg <=5 PA Systolic Pressure 59 mmHg <36 RV Systolic Pressure 59 mmHg <36 Aorta Name Value Normal Ascending Aorta Ao Root Diameter (MM) 3.0 cm Ao Root Diam Index (MM) 2.1 cm/m2 Aortic Valve Name Value Normal AV Doppler AV Peak Velocity 241 cm/s AV Peak Gradient 23 mmHg AV Mean Gradient 11 mmHg AV VTI 49 cm AV Area (Cont Eq VTI) 1.6 cm2 >=3.0 AV Area (Cont Eq Rk) 1.7 cm2 AV Regurgitation 2D LVOT Area 2.7 cm2 Ventricles Name Value Normal LV Dimensions 2D/MM IVS Diastolic Thickness (2D) 1.0 cm 0.6-1.0 LVID Diastole (2D) 4.2 cm 3.8-5.2 LVIW Diastolic Thickness (2D) 1.0 cm 0.6-0.9 LVID Systole (2D) 2.6 cm 2.2-3.5 LVOT Diameter 1.9 cm LV Mass (2D Cubed) 136.03 g 67.00-162.00 LV Mass Index (2D Cubed) 94 g/m2 43-95 Relative Wall Thickness (2D) 0.49 LV Fractional Shortening/Ejection Fraction 2D/MM LV Fractional Shortening (2D) 39 % 27-45 LV EF (2D Teicholz) 70 % 54-74 LV Diastolic Volume (4C MOD) 64 ml LV EF (4C MOD) 66 % LV Diastolic Volume (2C MOD) 59 ml LV EF (2C MOD) 77 % LV Diastolic Volume (BP MOD) 62 ml 46-106 LV Diastolic Volume Index (BP MOD) 43 ml/m2 29-61 LV Systolic Volume (BP MOD) 17 ml 14-42 LV Systolic Volume Index (BP MOD) 12 ml/m2 8-24 LV EF (BP MOD) 72 % 54-74 LV Diastolic Length (4C) 7.2 cm LV Systolic Length (4C) 5.5 cm LV Stroke Volume (4C MOD) 42 ml Atria Name Value Normal LA Dimensions LA Dimension (MM) 5.4 cm 2.7-3.8 LA Volume (4C A-L) 71 ml LA Volume (BP A-L) 68 ml RA Dimensions RA Area (4C) 26.5 cm2 <=18.0 Report Signatures
[2024-08-11 00:09] LABS: Glucose Point of Care 254 mg/dl (65-105)
[2024-08-11] MEDS: IPRATROPIUM 0.5 MG/ALBUTEROL SULFATE 2.5 MG AMPUL.NEB 3 ML INHALATION ×2 (02:58→20:59)
[2024-08-11 04:29] LABS: Basophils Percent Auto 0.1 % (0.2-1.2); Hematocrit 29.9 % (37.0-47.0); Hemoglobin 8.9 g/dL (12.0-15.0); Immature Granulocyte Absolute 0.03 K/mm3 (0.00-0.031); Immature Granulocyte Percent A 0.4 % (0-0.5); Lymphocytes Absolute Auto 0.73 K/mm3 (0.9-3.2); Lymphocytes Percent Auto 9.1 % (18.3-44.2); Mean Corpuscular HGB Conc 29.8 g/dl (32-36); Mean Corpuscular Hemoglobin 32.8 pg (26-34); Mean Corpuscular Volume 110.3 fl (80-100); Mean Platelet Volume 11.3 fl (7.4-10.4); Monocytes Absolute Auto 0.3 K/mm3 (0.1-0.6); Monocytes Percent Auto 3.7 % (2.6-8.5); Neutrophils Percent Auto 86.7 % (45.5-73.1); Nucleated Red Blood Cells Perc 0.4 % (0.0-0.2); Platelet Count Result 119 k/mm3 (150-375); Red Blood Count 2.71 M/mm3 (4.2-5.4); Red Cell Distribution Width 17.3 % (11.5-14.5); White Blood Count 8.1 K/mm3 (4.5-10.0)
[2024-08-11 04:40] LABS: Lactic Acid Reflex 0.8 mmol/L (0.7-2.0)
[2024-08-11 04:44] LABS: Alanine Aminotransferase 13 U/L (6-35); Albumin Level 3.5 g/dL (3.5-5.1); Alkaline Phosphatase 74 U/L (38-126); Anion Gap 15 mmol/L (4-12); Aspartate Amino Transferase 19 U/L (14-36); Bilirubin,Total 1.4 mg/dL (0.2-1.3); Blood Urea Nitrogen 52 mg/dL (7-17); Calcium 7.9 mg/dL (8.4-10.2); Carbon Dioxide 17 mmol/L (22-30); Chloride 97 mmol/L (98-107); Estimated Glomerular Filt Rate 9; Glucose 200 mg/dL (65-110); Potassium 4.3 mmol/L (3.4-5.0); Sodium 129 mmol/L (137-145)
[2024-08-11 04:50] LABS: Macrocytosis 1+ (NORMAL); Polychromasia 1+; Schistocytes None Seen
[2024-08-11 04:51] LABS: Platelet Estimate Adequate (Adequate)
[2024-08-11] MEDS: metroNIDAZOLE 500 MG/ISO 100ML 500 MG/100 ML BAG 100 MG IVPB (05:35)
[2024-08-11] MEDS: HEPARIN SODIUM 5,000 UNITS/ML VIAL 5000 UNITS SUB-Q ×3 (05:35→22:21)
[2024-08-11 08:21] LABS: Glucose Point of Care 162 mg/dl (65-105)
[2024-08-11] MEDS: VITAMIN B CMPLX/VIT C/FOLIC AC 1 CAPSULE 1 CAP PO (08:37)
[2024-08-11] MEDS: CALCIUM CARBONATE (TUMS) 500 MG (200 MG ELEMENTAL) 600 MG PO ×3 (08:37→19:01)
[2024-08-11] MEDS: SEVELAMER CARBONATE 800 MG TABLET PO ×3 (08:37→20:11)
[2024-08-11] MEDS: PANTOPRAZOLE 40 MG TABLET PO ×2 (08:37→20:15)
[2024-08-11] MEDS: predniSONE 20 MG TABLET 40 MG PO (08:37)
[2024-08-11] MEDS: guaiFENesin 12 HR 600 MG TABCR PO ×2 (08:37→20:15)
[2024-08-11] MEDS: CYANOCOBALAMIN 500 MCG TABLET PO (08:37)
[2024-08-11] MEDS: carvediloL 3.125 MG TABLET PO ×2 (08:43→20:15)
[2024-08-11 09:24] LABS: Alveolar/Arterial O2 Gradient 40.8 mmHg; Base Excess ABG -6.3 mEq/l (+/-2.0); Fractional Inspired Oxygen 21 %; HCO3 ABG 19.3 mEq/l (22.0-26.0); Oxygen Content ABG 13.4 %vol (16.0-22.0); Oxygen Saturation ABG 90.2 % (95.0-100.0); PCO2 ABG 38.8 mmHg (35.0-45.0); PO2 ABG 62.5 mmHg (80.0-100.0); PO2 FiO2 Ratio Arterial Blood 2.98 %; Total Hemoglobin 10.3 g/dL (12.0-18.0); pH ABG 7.315 (7.350-7.450)
[2024-08-11 09:27] LABS: Device ROOM AIR; Modified Allen's Test Pass; Site Drawn RIGHT RADIAL
[2024-08-11 09:27] LABS: NT Pro B Type Natriuretic Pept > 30000 pg/mL (19.9-100)
[2024-08-11 09:37] LABS: Procalcitonin 0.9 ng/mL
[2024-08-11] MEDS: INSULIN ASPART (*BKC) 100 UNITS/ML SUB-Q ×2 (11:52→20:16)
[2024-08-11 12:12] LABS: Glucose Point of Care 289 mg/dl (65-105)
[2024-08-11] MEDS: BELLADONNA ALK/PHENOB ELIX 10 ML, MAG HYDROX/ALUMINUM HYD/SIMETH 30 ML, LIDOCAINE 2% VI... PO (12:42)
--- NOTE | 2024-08-11 13:35 | PM.PNPUL ---
Progress Note: A&P Assessment and Plan (1) Acute respiratory failure with hypoxia and hypercapnia: Code(s): J96.01 - Acute respiratory failure with hypoxia; J96.02 - Acute respiratory failure with hypercapnia Status: Acute Assessment and Plan: Patient had 3 days of cough, sore throat prior to admission; was at dialysis when she worsened, came to ER, had (+) RSV, admitted for treatment. There is no specific treatment, she had supportive care, improved. She was admitted with normal serum bicarbonate, developed acute mental status changes Aug 07 as she was close to being discharged after a week in-patient for RSV with ABGs showing increased pCO2, negative brain MRI, acute sinusitis. She responded to BiPAP which improved ventilation. Her WBC started to increase, antibiotics started, waxing and waning mental status. Today when I saw her 5 p.m., she was alert and clear thinking with family at bedside. Discussion was occurring regarding level of care. She is already DNR. She was worried about dying earlier today. Dr Costa addressed her hypercapnia, corrected elevated pCO2 which was 71.3 using BiPAP 14/5 with back up rate 14; pCO2 decreased to 42.9 after this BiPAP setting was used. She is having some increase in pCO2 again, not as severe, pCo2 57. This is not completely new. She has similar ABG in 2019, probably has some underlying pulmonary disease secondary to secondhand smoking or some decreased cardiac function, had moderate aortic stenosis noted on the last echo in November 2023. She is also higher in weight compared to her baseline dry weight. She has [address] Suarez considered a repeat dialysis treatment today but the patient was not treated due to staffing issues. Excessive total body weight may contribute to elevated CO2 retention. She is due to have a dialysis treatment tomorrow. 08/13/24: Patient is sitting in a chair. Patient wore BiPAP last night rate of 14 pressure 16/5 with 24% FiO2 and saturations 100%. She said the machine was very painful and she did not sleep well. patient had hemodialysis late yesterday with 3 L removed. She is waking communicative States that her breathing is normal. Her phlegm is 95% back to normal in described as a small amount of phlegm. She has no hemoptysis. Currently she is on room air with saturations 100%. Patient had an ABG this morning on room air of 7.32/39/63. patient is afebrile. White blood cell count 8.1, creatinine 4.57, BUN 52. Serum bicarbonate 17. BNP is greater than 30,000. Procalcitonin 0.9. She has no wheezing. chest x-ray today with cardiomegaly, mild bibasilar interstitial infiltrates small right pleural effusion. Plan: Patient tells me she did not do well with the BiPAP. Currently she is not hypercarbic after dialysis last night. Will leave off of BiPAP and repeat ABG in the morning off BiPAP for greater than 24 hours to reassess hypercarbic respiratory failure. Currently she is on room air with saturations 100%. Patient is being treated for possible pneumonia and she is on Levaquin and Flagyl since 08/09/24. she has no current respiratory complaints, no phlegm production, afebrile, no leukocytosis, no focal infiltrates on her chest x-ray. Patient is scheduled to get a CT scan of the chest today and will consider deescalation. BNP remains greater than 30,000, to have a CT scan today looking for evidence of fluid overload. Patient is scheduled to receive hemodialysis today as well. 11/15/2023 echocardiogram with moderate aortic stenosis valve area 1.4 centimeters squared. Repeat echocardiogram ordered. Discussed with Dr. Costa, will follow with you. (2) RSV infection: Qualifiers: RSV infection type: unspecified Qualified Code(s): B33.8 - Other specified viral diseases Code(s): B33.8 - Other specified viral diseases Status: Acute Assessment and Plan: 08/10/24: RSV can have symptoms that last a couple months after infection including coughing, shortness of breath, wheezing. I did not hear wheezing today. She might benefit from inhaler therapy with ICS-LABA. Currently, she is on oral prednisone nad nebulized albuterol and ipratropium. 08/11/24: Patient currently with no respiratory symptoms. Plan: She has received 9 days of prednisone 40 mg p.o. q.day will discontinue. Continue DuoNebs q.6 hours. Continue guaifenesin 600 p.o. b.i.d.. Cord a flutter valve t.i.d.. Subjective Date/time seen: 08/11/24 13:35 Interval history: 08/10/24: NEW pulmonary consult: pt was seen 08/10/2024 at 17:55 Room 202; Family members were present including daughters Renata, Tracie, and her son Topher; 2 cousins also were present. Shasta Obando is a 79-year-old woman, has ESRD on hemodialysis, was admitted about 08/01/24 from dialysis with increasing shortness of breath, cough and sore throat for 3 days, failed out patient amoxicillin. She had (+) RSV diagnosed on Jul 28. CTA on admission showed no PE, mucus in the airways and compressive atelectasis in the right base due to pleural effusion. WBC = 10 on admission, increased to 12.9 Aug 08, 11.4 Aug 09. She is not running a fever. She had an abrupt deterioration in her mentation on Aug 07, on the day that she was scheduled for discharge. Workup included brain MRI, nothing acute other than sinusitis. Yesterday Aug 09, ABGs were obtained showing acute increase in pCO2, see below. She has no history of smoking, however lived with her who smoked. Levaquin and IV Flagyl were started Aug 09 with increased WBC. She does not have sputum to send for evaluation. Today, Aug 10, her small left arm IV has started to fail, not effective for using for IV antibiotics. Her Levaquin was changed to oral. A repeat chest CT is ordered for tomorrow. The patient get HD , would have had an extra treatment this weekend however staffing did not allow for her to have a treatment today. Her weight is 58.3 kg; her admission weight was between 50-54 kg. during this admission, her Hep B core antibody and Hepatitis Be antibody turned positive. She was up to date with all vaccinations, specifically RSV, according to an office visit with primary care in February,. PMH: Osteoarthritis left knee, lumbar spondylosis, low back pain, Left sacroiliac pain. Sees Ortho and Pain management. HTN. DM, PAD with intervention by Dr Villa = performed atherectomy and balloon angioplasty of occluded left anterior tibial artery 03/20/2018, another peripheral intervention Dr Villa 09/26/2018; 2019 toe amputation by her construction equipment mechanic helper from the right foot. ESRD on HD, HTN, DM, peripheral arterial disease, NSAID related gastric ulceration and GI bleed in 2017 with transfusion, and has not been able to tolerate anticoagulation for atrial fibrillation; she has been on HD for over 10 years, managed by Dr Suarez. She has atrial fibrillation since 2016, a Watchman left atrial appendage occluder placed in 07/23/2018 at [facility] Dr Mccloud. Last cardiology note from [facility] was 04/03/2022. She is followed at [facility] office here, Dr Seay. She is not a renal transplant candidate due to medical complex illness. 08/13/24: Patient is sitting in a chair. Patient wore BiPAP last night rate of 14 pressure 16/5 with 24% FiO2 and saturations 100%. She said the machine was very painful and she did not sleep well. patient had hemodialysis late yesterday with 3 L removed. She is waking communicative States that her breathing is normal. Her phlegm is 95% back to normal in described as a small amount of phlegm. She has no hemoptysis. Currently she is on room air with saturations 100%. Patient had an ABG this morning on room air of 7.32/39/63. patient is afebrile. White blood cell count 8.1, creatinine 4.57, BUN 52. Serum bicarbonate 17. BNP is greater than 30,000. Procalcitonin 0.9. She has no wheezing. chest x-ray today with cardiomegaly, mild bibasilar interstitial infiltrates small right pleural effusion. DATA * ABGs Her ABG in 2019 shows mild to moderate hypercapnia and hypoxemia, and she was discharged on O2 for a few weeks when she was in [place] for SNF. She has not required O2 since. These arterial blood gases from 2019 suggest that she has some underlying pulmonary dysfunction as she was hypoxemic and hypercapnic then, went home on O2. DATE: 08/06/2024 08:33 INDICATION: Pulmonary embolism with hypoxia TECHNIQUE: Computed tomography (CT) pulmonary angiogram of the chest was performed with 100 mL Omnipaque-350 intravenous contrast. Additional 3D reconstructions utilizing coronal maximum intensity projection (MIP) were performed. Automated exposure control and iterative reconstruction technique were employed. The dose-length product was 189.63 mGy-cm. COMPARISON: None FINDINGS: No pulmonary embolism. There is however moderate scattered respiratory motion which decreases sensitivity, mildly in the segmental pulmonary arteries and more significantly in the smaller more peripheral subsegmental pulmonary arteries. Small bilateral pleural effusions. There is consolidation a right middle and lower lobes with associated fluid/mucus in the bronchi suspicious for pneumonia. Mild dependent compressive atelectasis in the left lower lobe. No pulmonary edema. Cardiomegaly. Atherosclerotic coronary artery calcifications and aortic valve calcification. No pericardial effusion. Left atrial appendage occlusion device. Fusiform ascending thoracic aortic aneurysm measuring 4.3 cm in maximal diameter. This tapers to normal caliber of 2.8 cm at the isthmus. There is stenting of the right subclavian vein. No pathologically enlarged thoracic lymphadenopathy. Likely benign rim calcified 7 mm nodule at the inferior left thyroid lobe. Hepatic calcification consistent with old granulomatous disease. Moderate to severe atrophy at the upper pole of the left kidney. Moderate to severe thoracic spondylosis with prominent diffuse osteopenia relatively sparing the endplates in the spine which could be seen in the setting of renal osteodystrophy. IMPRESSION: 1. No pulmonary embolism. Sensitivity decreased in the smaller subsegmental pulmonary arteries due to respiratory motion. 2. Right middle and lower lobe with fluid and mucus in the bronchi consistent with pneumonia. 3. Small bilateral pleural effusions. 4. 4.3 cm fusiform ascending thoracic aortic aneurysm. 5. 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 11/15/2023: Echocardiogram [facility] report: Conclusions: Normal left ventricular size. Moderate concentric left ventricular hypertrophy. Normal global LV systolic function. Indeterminate diastolic function. Ejection fraction is visually estimated at 65%. Ejection fraction is measured at 70%. Global longitudinal strain is -19%. Normal appearance of the mitral valve. Moderate mitral annular calcification. Trivial regurgitation of the mitral valve. Moderate aortic stenosis. Valve area is 1.4 cm. Trileaflet aortic valve. Atrial fibrillation. Marked biatrial enlargement. Within the body of the report it says right ventricle normal size. Right atrium severe enlargement of the right atrium. Tricuspid peak gradient 49. Review of Systems Constitutional: Constitutional: Reports no additional constitutional complaints Eyes: Eyes: Reports no additional eye complaints ENT: Reports system reviewed and no additional complaints, except as documented Cardiovascular: Cardiovascular: Reports no additional cardiovascular complaints Respiratory: Respiratory: Reports no additional respiratory complaints Gastrointestinal: Gastrointestinal: Reports no additional gastrointestinal complaints Musculoskeletal: Musculoskeletal: Reports no additional musculoskeletal complaints Neurologic: Reports system reviewed and no additional complaints, except as documented Psychiatric: Psychiatric: Reports no additional psychiatric complaints Endocrine: Endocrine: Reports no additional endocrine complaints Hematologic/Lymphatic: Hematologic/Lymphatic: Reports no additional hematologic/lymphatic complaints Allergic/Immunologic: Allergic/Immunologic: Reports no additional allergic/immunologic complaints Exam Const: General: cooperative, healthy appearing and comfortable Orientation/consciousness: oriented to person, oriented to place and oriented to time HENMT: Head: normal to inspection Ears: hearing grossly normal bilaterally Eyes: General: appearance normal, both eyes and all related structures Neck: Neck: normal visual inspection Chest: Chest palpation & inspection: normal inspection of the chest Resp: Effort & Inspection: normal respiratory effort and able to speak in complete sentences Auscultation: crackles, no rales, no rhonchi, no wheezes and lung sounds not diminished Other: crackles at bases Cardio: Jugular venous distension: no JVD GI: Inspection: normal to inspection GI Palp: No abdominal tenderness Skin: General skin exam: normal color Neuro: General: oriented to person, oriented to place and oriented to time Extrem: General: normal to inspection Psych: Appearance: grossly normal Objective Data Vital Signs Vital Signs: Vital Signs - 24 hr 08/10/24 14:00 08/10/24 14:46 08/10/24 14:46 Temperature Pulse Rate 70 61 61 Respiratory Rate 20 20 Blood Pressure Pulse Oximetry 100 Oxygen Delivery BiPAP Oxygen Flow Rate Fraction of Inspired Oxygen 08/10/24 15:00 08/10/24 16:00 08/10/24 16:00 Temperature Pulse Rate 59 L 65 Respiratory Rate 20 Blood Pressure Pulse Oximetry 97 Oxygen Delivery Nasal Cannula Oxygen Flow Rate 1 Fraction of Inspired Oxygen 08/10/24 16:47 08/10/24 18:00 08/10/24 19:37 Temperature 36.3 C L Pulse Rate 63 63 69 Respiratory Rate 18 Blood Pressure 133/48 L 153/62 H Pulse Oximetry 97 Oxygen Delivery Oxygen Flow Rate Fraction of Inspired Oxygen 08/10/24 19:37 08/10/24 20:00 08/10/24 20:00 Temperature 36.9 C Pulse Rate 70 63 63 Respiratory Rate 17 Blood Pressure 169/50 H 147/50 H Pulse Oximetry 100 Oxygen Delivery Oxygen Flow Rate Fraction of Inspired Oxygen 08/10/24 20:00 08/10/24 20:15 08/10/24 20:20 Temperature Pulse Rate 66 Respiratory Rate Blood Pressure 141/58 H Pulse Oximetry 100 Oxygen Delivery BiPAP Oxygen Flow Rate 2 Fraction of Inspired Oxygen 30 08/10/24 20:30 08/10/24 20:36 08/10/24 20:36 Temperature Pulse Rate 64 57 L 57 L Respiratory Rate 20 17 Blood Pressure 148/50 H Pulse Oximetry 100 Oxygen Delivery BiPAP Oxygen Flow Rate Fraction of Inspired Oxygen 08/10/24 20:45 08/10/24 21:00 08/10/24 21:15 Temperature Pulse Rate 64 63 67 Respiratory Rate Blood Pressure 127/49 L 148/59 H 110/46 L Pulse Oximetry Oxygen Delivery Oxygen Flow Rate Fraction of Inspired Oxygen 08/10/24 21:30 08/10/24 21:45 08/10/24 22:00 Temperature Pulse Rate 60 60 65 Respiratory Rate Blood Pressure 140/42 L 124/49 L 150/50 H Pulse Oximetry Oxygen Delivery Oxygen Flow Rate Fraction of Inspired Oxygen 08/10/24 22:00 08/10/24 22:15 08/10/24 22:30 Temperature Pulse Rate 60 66 82 Respiratory Rate Blood Pressure 125/44 L 136/48 L Pulse Oximetry Oxygen Delivery Oxygen Flow Rate Fraction of Inspired Oxygen 08/10/24 22:45 08/10/24 22:49 08/10/24 23:11 Temperature 36.9 C Pulse Rate 69 69 67 Respiratory Rate 16 Blood Pressure 130/53 L 130/50 L 143/45 H Pulse Oximetry 100 Oxygen Delivery Oxygen Flow Rate Fraction of Inspired Oxygen 08/10/24 23:49 08/10/24 23:53 08/11/24 00:00 Temperature 36.4 C Pulse Rate 62 60 Respiratory Rate 16 Blood Pressure 133/50 L Pulse Oximetry 100 100 Oxygen Delivery BiPAP Oxygen Flow Rate Fraction of Inspired Oxygen 30 08/11/24 00:00 08/11/24 01:15 08/11/24 02:00 Temperature Pulse Rate 67 54 L 47 L Respiratory Rate 15 Blood Pressure Pulse Oximetry 100 Oxygen Delivery BiPAP Oxygen Flow Rate Fraction of Inspired Oxygen 08/11/24 02:21 08/11/24 03:10 08/11/24 04:00 Temperature Pulse Rate 64 54 L Respiratory Rate 16 22 H Blood Pressure 116/60 Pulse Oximetry 100 100 Oxygen Delivery BiPAP BiPAP Oxygen Flow Rate Fraction of Inspired Oxygen 30 08/11/24 04:00 08/11/24 04:00 08/11/24 06:00 Temperature 36.6 C Pulse Rate 52 L 53 L 56 L Respiratory Rate 18 Blood Pressure 127/41 L Pulse Oximetry 100 Oxygen Delivery Oxygen Flow Rate Fraction of Inspired Oxygen 08/11/24 07:35 08/11/24 08:00 08/11/24 08:43 Temperature 36.9 C Pulse Rate 62 74 62 Respiratory Rate 20 Blood Pressure 135/43 L Pulse Oximetry 98 Oxygen Delivery Oxygen Flow Rate Fraction of Inspired Oxygen 08/11/24 10:00 08/11/24 11:35 08/11/24 12:00 Temperature 37.2 C Pulse Rate 66 68 60 Respiratory Rate 16 Blood Pressure 134/40 L Pulse Oximetry 96 Oxygen Delivery Oxygen Flow Rate Fraction of Inspired Oxygen Intake/Output Intake/Output: Intake & Output 08/08/24 08/09/24 08/10/24 08/11/24 23:59 23:59 23:59 23:59 Intake Total 840 250 615 385 Output Total 1000 0 3000 Balance -160 250 -2385 385 Meds/Results Medications: Active Medications Generic Name Dose Route Start Last Admin Trade Name Freq PRN Reason Stop Dose Admin Acetaminophen 325 mg 08/10/24 00:39 08/10/24 23:50 Acetaminophen 325 Mg Tablet BY MOUTH 325 mg Q4H PRN Administration Pain 1-3 Albuterol/Ipratropium 3 ml 07/30/24 18:22 08/03/24 15:52 Ipratropium 0.5 Mg/Albuterol Sulfate 2.5 Mg Ampul.Neb 3 Ml INHALATION 3 ml Q6HRT PRN Administration Shortness Of Breath Or Wheezing Albuterol/Ipratropium 3 ml 08/09/24 20:00 08/11/24 02:58 Ipratropium 0.5 Mg/Albuterol Sulfate 2.5 Mg Ampul.Neb 3 Ml INHALATION 3 ml Q6HRT THERESE Administration Benzocaine 1 lozenge 07/30/24 18:22 07/30/24 21:28 Benzocaine/Menthol (*Bkc) 18 Ea Lozenge PO 1 lozenge PRN PRN Administration Sore Throat Benzonatate 100 mg 07/30/24 18:22 07/30/24 21:27 Benzonatate 100 Mg Capsule PO 100 mg TID PRN Administration Cough Calcium Carbonate 600 mg 08/01/24 17:30 08/11/24 11:52 Calcium Carbonate (Tums) 500 Mg (200 Mg Elemental) PO 600 mg TID THERESE Administration Carvedilol 3.125 mg 08/02/24 21:00 08/11/24 08:43 Carvedilol 3.125 Mg Tablet PO 3.125 mg Q12HR THERESE Administration Cyanocobalamin 500 mcg 07/31/24 09:00 08/11/24 08:37 Cyanocobalamin 500 Mcg Tablet PO 500 mcg DAILY THERESE Administration Dextrose 12.5 gm 07/30/24 18:29 Dextrose 50% 25 Gm/50 Ml Syringe IV PUSH PRN PRN Hypoglycemia Protocol Dicyclomine HCl 10 mg 07/30/24 21:35 Dicyclomine Hcl 10 Mg Capsule PO BID PRN Abdominal Pain Epoetin Son-epbx 10,000 units 08/11/24 20:32 Epoetin Son-Epbx 10,000 Units/Ml Vial IV PUSH 08/11/24 20:33 ONCE ONE Ergocalciferol 50,000 units 08/02/24 09:00 08/09/24 10:17 Ergocalciferol 50,000 Units Capsule PO 50,000 units WEEKLY THERESE Administration Glucagon 1 mg 07/30/24 18:29 Glucagon For Inj 1 Mg Vial IM PRN PRN Hypoglycemia Protocol Glucose 15 gm 07/30/24 18:29 Glucose Oral Gel 15 Gm Of Glucse In 37.5 Gm Tube PO PRN PRN Hypoglycemia Protocol Guaifenesin 600 mg 08/10/24 21:00 08/11/24 11:27 Guaifenesin 12 Hr 600 Mg Tabcr PO Not Given Q12HR THERESE Heparin Sodium (Porcine) 5,000 units 08/03/24 14:00 08/11/24 12:45 Heparin Sodium 5,000 Units/Ml Vial SUB-Q 5,000 units Q8HR THERESE Administration Dextrose 1,000 mls @ 100 mls/hr 07/30/24 18:29 Dextrose 5% 1,000 Ml IVPB PRN PRN Hypoglycemia Protocol Albumin Human 50 mls @ 999 mls/hr 08/01/24 07:00 08/06/24 13:46 Albutein IVPB 08/31/24 06:59 999 mls/hr Q10M PRN Administration HYPOTENSION Metronidazole 500 mg in 100 mls @ 100 mls/hr 08/09/24 18:00 08/11/24 05:35 Flagyl 500 Mg/Iso Soln 100 Ml IVPB 100 mls/hr Q12H THERESE Administration Insulin Aspart 1 - 2 units 08/01/24 22:20 08/08/24 22:26 Insulin Aspart (*Bkc) 100 Units/Ml SUB-Q 1 units HS THERESE Administration Protocol Insulin Aspart 2 - 5 units 08/10/24 17:50 08/11/24 11:52 Insulin Aspart (*Bkc) 100 Units/Ml SUB-Q 3 units ACHS THERESE Administration Protocol Insulin Glargine 35 units 08/02/24 21:00 08/07/24 23:21 Insulin Glargine (*Bkc) 100 Units/Ml SUB-Q Not Given HS THERESE Levofloxacin 500 mg 08/11/24 16:00 Levofloxacin 500 Mg Tablet PO Q48H THERESE Miconazole Nitrate 1 applic 08/06/24 11:52 Miconazole Nitrate 2% Cream 30 Gm Tube TOPICAL Q12HR PRN maceration * Home Med * 1.8 mg 07/31/24 21:00 Liraglutide [Victoza SUB-Q 08/30/24 20:59 2-Agustín] 0.6 Mg/0.1 HS THERESE Ml (18 Mg/3 Ml) Pen Injector Pantoprazole Sodium 40 mg 07/31/24 09:00 08/11/24 08:37 Pantoprazole 40 Mg Tablet PO 40 mg Q12HR THERESE Administration Perflutren Lipid Microsphere 0 ml 08/10/24 20:01 Perflutren Lipid Microspheres 1.5 Ml Vial Diluted To 10 Ml Total Volume IV PUSH 08/13/24 20:01 ONCE PRN adequate visualization Protocol Prednisone 40 mg 08/03/24 11:55 08/11/24 08:37 Prednisone 20 Mg Tablet PO 40 mg DAILY@0800 THERESE Administration Sevelamer Carbonate 800 mg 07/31/24 08:00 08/11/24 11:52 Sevelamer Carbonate 800 Mg Tablet PO 800 mg TIDWM THERESE Administration Sitagliptin Phosphate 100 mg 07/31/24 09:00 07/31/24 08:56 Sitagliptin Phosphate 100 Mg Tablet PO 100 mg DAILY THERESE Administration Sodium Chloride 1 spray 08/10/24 19:11 Saline 0.65% Steve Soln 44 Ml Btl NASAL Q4HR PRN Congestion Venlafaxine HCl 37.5 mg 08/03/24 11:50 08/09/24 10:17 Venlafaxine Hcl Xr 37.5 Mg Cap PO Not Given DAILY@0800 [facility] Vitamin B Complex/Folic Acid 1 cap 07/31/24 09:00 08/11/24 08:37 Vitamin B Cmplx/Vit C/Folic Ac 1 Capsule PO 1 cap DAILY THERESE Administration Radiology Results: ITS Impressions Chest CTA 08/06/24 08:36 IMPRESSION: 1. No pulmonary embolism. Sensitivity decreased in the smaller subsegmental pulmonary arteries due to respiratory motion. 2. Right middle and lower lobe with fluid and mucus in the bronchi consistent with pneumonia. 3. Small bilateral pleural effusions. 4. 4.3 cm fusiform ascending thoracic aortic aneurysm. 5. 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 Head CT 08/07/24 12:33 IMPRESSION: 1. Normal aging brain. No acute intracranial process. 2. Fluid/mucus in some of the paranasal sinuses consistent with acute sinusitis. Lumbar Spine CT 08/07/24 12:38 IMPRESSION: 1. Mild lumbar spondylosis. Brain MRI 08/08/24 16:41 IMPRESSION: 1. No acute intracranial process. 2. Moderate scattered calcific white matter T2 hyperintensity which within normal limits for age and consistent with chronic small vessel ischemic disease. 3. Fluid/mucus in some of the paranasal sinuses consistent with acute sinusitis. Chest X-Ray 08/11/24 07:10 Impression: Probable mild bibasilar pulmonary edema with minimal right pleural effusion. Stable cardiomegaly. Possible underlying COPD. Labs Labs: Laboratory Results - last 24 hr 08/10/24 08/10/24 08/10/24 16:20 18:12 20:14 WBC 7.9 RBC 2.63 L Hgb 8.6 L Hct 27.9 L MCV 106.1 H D MCH 32.7 MCHC 30.8 L RDW 17.7 H Plt Count 124 L MPV 11.4 H Immature Gran % (Auto) 0.8 H Neut % (Auto) 92.5 H Lymph % (Auto) 5.2 L Stoddard % (Auto) 1.5 L Eos % (Auto) 0.0 Baso % (Auto) 0.0 L Lymph # (Auto) 0.41 L Stoddard # (Auto) 0.1 Eos # (Auto) 0.0 Baso # (Auto) 0.0 Abs Immat Gran (auto) 0.06 H Absolute Neuts (auto) 7.3 H Absolute Nucleated RBC 0.030 H Nucleated RBC % 0.4 H Platelet Estimate Decreased Polychromasia 1+ Basophilic Stippling 1+ Anisocytosis 1+ Macrocytosis 1+ Wallace Cells 1+ Schistocytes None seen Puncture Site ABG pH ABG pCO2 ABG pO2 ABG PO2/FiO2 Ratio ABG HCO3 ABG O2 Saturation ABG O2 Content ABG Base Excess A-a Gradient Oxyhemoglobin Total Hemoglobin O2 Delivery Device O2 Liters/Min FiO2 Sodium 128 L Potassium 4.3 Chloride 95 L Carbon Dioxide 23 Anion Gap 10 BUN 43 H D Creatinine 4.34 H Estim Creat Clear Calc Not Reportable Estimated GFR 10 L Glucose 225 H POC Capillary Glucose 209 H 257 H Lactic Acid Calcium 8.1 L Total Bilirubin 1.3 AST 18 ALT 14 Alkaline Phosphatase 81 NT-Pro-B Natriuret Pep Total Protein 6.0 L Albumin 3.6 Procalcitonin 08/10/24 08/11/24 08/11/24 23:47 03:59 04:06 WBC 8.1 RBC 2.71 L Hgb 8.9 L Hct 29.9 L MCV 110.3 H MCH 32.8 MCHC 29.8 L RDW 17.3 H Plt Count 119 L MPV 11.3 H Immature Gran % (Auto) 0.4 Neut % (Auto) 86.7 H Lymph % (Auto) 9.1 L Stoddard % (Auto) 3.7 Eos % (Auto) 0.0 Baso % (Auto) 0.1 L Lymph # (Auto) 0.73 L Stoddard # (Auto) 0.3 Eos # (Auto) 0.0 Baso # (Auto) 0.0 Abs Immat Gran (auto) 0.03 Absolute Neuts (auto) 7.0 H Absolute Nucleated RBC 0.030 H Nucleated RBC % 0.4 H Platelet Estimate Adequate Polychromasia 1+ Basophilic Stippling Anisocytosis Macrocytosis 1+ Wallace Cells Schistocytes None seen Puncture Site ABG pH ABG pCO2 ABG pO2 ABG PO2/FiO2 Ratio ABG HCO3 ABG O2 Saturation ABG O2 Content ABG Base Excess A-a Gradient Oxyhemoglobin Total Hemoglobin O2 Delivery Device O2 Liters/Min FiO2 Sodium 129 L Potassium 4.3 Chloride 97 L Carbon Dioxide 17 L Anion Gap 15 H BUN 52 H Creatinine 4.57 H Estim Creat Clear Calc Not Reportable Estimated GFR 9 L Glucose 200 H POC Capillary Glucose 254 H Lactic Acid 0.8 Calcium 7.9 L Total Bilirubin 1.4 H AST 19 ALT 13 Alkaline Phosphatase 74 NT-Pro-B Natriuret Pep > 43190 H Total Protein 6.0 L Albumin 3.5 Procalcitonin 0.9 08/11/24 08/11/24 08/11/24 08:08 08:49 11:39 WBC RBC Hgb Hct MCV MCH MCHC RDW Plt Count MPV Immature Gran % (Auto) Neut % (Auto) Lymph % (Auto) [place] % (Auto) Eos % (Auto) Baso % (Auto) Lymph # (Auto) [place] # (Auto) Eos # (Auto) Baso # (Auto) Abs Immat Gran (auto) Absolute Neuts (auto) Absolute Nucleated RBC Nucleated RBC % Platelet Estimate Polychromasia Basophilic Stippling Anisocytosis Macrocytosis Wallace Cells Schistocytes Puncture Site Right radial ABG pH 7.315 L ABG pCO2 38.8 ABG pO2 62.5 L ABG PO2/FiO2 Ratio 2.98 ABG HCO3 19.3 L ABG O2 Saturation 90.2 L ABG O2 Content 13.4 L ABG Base Excess -6.3 A-a Gradient 40.8 Oxyhemoglobin 92.0 Total Hemoglobin 10.3 L O2 Delivery Device Room air O2 Liters/Min Not Reportable FiO2 21 Sodium Potassium Chloride Carbon Dioxide Anion Gap BUN Creatinine Estim Creat Clear Calc Estimated GFR Glucose POC Capillary Glucose 162 H 289 H Lactic Acid Calcium Total Bilirubin AST ALT Alkaline Phosphatase NT-Pro-B Natriuret Pep Total Protein Albumin Procalcitonin
--- NOTE | 2024-08-11 13:47 | PCNFU ---
Nutrition Follow-Up Complete: Inadequate Oral Intake as related to RSV as evidenced by poor po intake. Goal: Adequate Intake of at least 75% of meals. Patient has limited progress towards goal. We will continue current goal. Pt current nutrition is [facility]/Renal Dialysis diet. Nutrition recommendation: Alexander BID and Nepro shakes BID Last recorded weight is 52.2 kg, down from 56.8 kg. Patient is dialysis. Bowel Motility: +BM reported 08/08 Labs Reviewed: Glu 200, BUN 52, Cr 4.57, GFR 9, ,Na 129, Hct 29.9, Hgb 8.9 Meds Noted: Januvia,, Protonix, Vit B12, Mucinex, Lantus, NovoLog, Prednisone. Skin: stage III-right buttock, Deep Tissue-Right heel and left buttock. Additional Notes: Wound screen-pressure ulcers noted. Diet supplements recommended of Alexander BID for wound healing and Nepro shakes for additional kcal and protein needs. PO intake has been poor. Agree with diet orders. Will monitor, weight , labs, skin, oral intake, meds every 5 days.
--- NOTE | 2024-08-11 14:18 | PCPTNOTE ---
14:18 attempted a PT session however pt having an echocardiogram at this time . AKS
[2024-08-11] MEDS: SODIUM CHLORIDE 0.9% IV 1,000 ML 999 ML IV CONT (14:37)
--- NOTE | 2024-08-11 15:30 | P.PNNP_ITS ---
Progress Note: A&P Assessment and Plan (1) End stage renal disease: Code(s): N18.6 - End stage renal disease Status: Chronic Assessment and Plan: * HD today * continue M/W/F dialysis schedule while hospitalized * follow electrolytes, volume status, and clearance (2) Altered mental status: Code(s): R41.82 - Altered mental status, unspecified Status: Acute Assessment and Plan: * doing much better currently * evaluation to date noted: * CT of head negative * off all sedating medication * MRI of brain unremarkable * TSH/RPR/Vitamin B12 okay * blood gas done on 08/09 with evidence of CO2 retention -- trialed on BiPAP * on antibiotics for possible infection * follow mentation (3) Hypoxia: Code(s): R09.02 - Hypoxemia Status: Acute Assessment and Plan: * weaned to room air currently6 * as noted by EMS * 80% on room air * improved with 2L oxygen by nasal cannula * presumably due to mild pulmonary edema and RSV (as noted on admission) * s/p DUF with 3L fluid on 08/10 * continue supportive therapy (4) RSV infection: Qualifiers: RSV infection type: unspecified Qualified Code(s): B33.8 - Other specified viral diseases Code(s): B33.8 - Other specified viral diseases Status: Acute Assessment and Plan: * tested positive for RSV on 07/30 in ER * reported onset of symptoms on 07/28 * continues supportive care: * Mucinex * Tessalon Perles p.r.n. * DuoNeb as needed * Tylenol (5) Atrial fibrillation: Qualifiers: Atrial fibrillation type: unspecified Qualified Code(s): I48.91 - Unspecified atrial fibrillation Code(s): I48.91 - Unspecified atrial fibrillation Status: Chronic Assessment and Plan: * paroxysmal * rate controlled * not on anticoagulation (due to hx of GI bleeding versus fall risk?) (6) Anemia: Qualifiers: Anemia type: unspecified type Qualified Code(s): D64.9 - Anemia, unspecified Code(s): D64.9 - Anemia, unspecified Status: Chronic Assessment and Plan: * related to ESRD * Epogen with HD * follow trend of H/H (7) Hypertension: Qualifiers: Hypertension type: unspecified Qualified Code(s): I10 - Essential (primary) hypertension Code(s): I10 - Essential (primary) hypertension Status: Chronic Assessment and Plan: * reasonable control * follow hemodynamics (8) Type 2 diabetes mellitus: Qualifiers: Diabetes mellitus complication status: without complication Diabetes mellitus long term acute care registered nurse insulin use: without long term acute care registered nurse use Qualified Code(s): E11.9 - Type 2 diabetes mellitus without complications Code(s): E11.9 - Type 2 diabetes mellitus without complications Status: Chronic Assessment and Plan: * follow accuchecks * glycemic control per hospitalists Will continue to follow. L Subjective Date/time seen: 08/11/24 15:30 Interval history: Follow-up for end stage renal disease on hemodialysis. Chart reviewed since last seen -- tolerating dialysis treatment at the time of my visit (seen on HD at 3:20PM); tolerated dry ultrafiltration session yesterday evening with 3L fluid removal; breathing/respiratory status as well as mental status seems to have improved in general; has been off BiPAP x 24 hours; no apparent distress noted. Exam 2 Narrative: General: elderly female in NAD Heart: normal S1 and S2; no rub Lungs: coarse breath sounds Abdomen: soft, nontender, nondistended, positive bowel sounds Extremities: no cyanosis or clubbing; no edema Skin: warm and dry Objective Data Vital Signs Vital Signs: Vital Signs Temp Pulse Resp BP Pulse Ox O2 Del Method O2 Flow Rate 08/11/24 15:30 71 165/65 H 08/11/24 15:15 64 178/64 H 08/11/24 15:00 63 154/59 H 08/11/24 14:48 67 153/61 H 08/11/24 14:37 99.1 F 64 18 153/67 H 08/11/24 14:00 61 08/11/24 13:42 97 Room Air 08/11/24 12:00 60 08/11/24 11:35 99 F 68 16 134/40 L 96 08/11/24 10:00 66 08/11/24 09:43 60 20 08/11/24 08:43 62 08/11/24 08:00 74 08/11/24 07:35 98.4 F 62 20 135/43 L 98 08/11/24 06:00 56 L 08/11/24 04:00 97.8 F 53 L 18 127/41 L 100 08/11/24 04:00 52 L 08/11/24 04:00 100 BiPAP 08/11/24 03:10 54 L 22 H 08/11/24 02:21 64 16 116/60 100 BiPAP 08/11/24 02:00 47 L 08/11/24 01:15 54 L 15 100 BiPAP 08/11/24 00:00 67 08/11/24 00:00 100 BiPAP 08/10/24 23:53 97.6 F 60 16 133/50 L 100 08/10/24 23:49 62 08/10/24 23:11 98.4 F 67 16 143/45 H 100 08/10/24 22:49 69 130/50 L 08/10/24 22:45 69 130/53 L 08/10/24 22:30 82 136/48 L 08/10/24 22:15 66 125/44 L 08/10/24 22:00 60 08/10/24 22:00 65 150/50 H 08/10/24 21:45 60 124/49 L 08/10/24 21:30 60 140/42 L 08/10/24 21:15 67 110/46 L 08/10/24 21:00 63 148/59 H 08/10/24 20:45 64 127/49 L 08/10/24 20:36 57 L 17 100 BiPAP 08/10/24 20:36 57 L 20 08/10/24 20:30 64 148/50 H 08/10/24 20:20 2 08/10/24 20:15 66 141/58 H 08/10/24 20:00 100 BiPAP 08/10/24 20:00 63 08/10/24 20:00 63 147/50 H 08/10/24 19:37 98.4 F 70 17 169/50 H 100 08/10/24 19:37 69 153/62 H Intake/Output Intake/Output: Intake & Output 08/08/24 08/09/24 08/10/24 08/11/24 23:59 23:59 23:59 23:59 Intake Total 840 250 615 385 Output Total 1000 0 3000 Balance -160 250 -2385 385 Meds/Results Medications: Active Medications Generic Name Dose Route Start Last Admin Trade Name Freq PRN Reason Stop Dose Admin Acetaminophen 325 mg 08/10/24 00:39 08/10/24 23:50 Acetaminophen 325 Mg Tablet BY MOUTH 325 mg Q4H PRN Administration Pain 1-3 Albuterol/Ipratropium 3 ml 07/30/24 18:22 08/03/24 15:52 Ipratropium 0.5 Mg/Albuterol Sulfate 2.5 Mg Ampul.Neb 3 Ml INHALATION 3 ml Q6HRT PRN Administration Shortness Of Breath Or Wheezing Albuterol/Ipratropium 3 ml 08/09/24 20:00 08/11/24 16:41 Ipratropium 0.5 Mg/Albuterol Sulfate 2.5 Mg Ampul.Neb 3 Ml INHALATION Not Given Q6HRT THERESE Benzocaine 1 lozenge 07/30/24 18:22 07/30/24 21:28 Benzocaine/Menthol (*Bkc) 18 Ea Lozenge PO 1 lozenge PRN PRN Administration Sore Throat Benzonatate 100 mg 07/30/24 18:22 07/30/24 21:27 Benzonatate 100 Mg Capsule PO 100 mg TID PRN Administration Cough Calcium Carbonate 600 mg 08/01/24 17:30 08/11/24 11:52 Calcium Carbonate (Tums) 500 Mg (200 Mg Elemental) PO 600 mg TID THERESE Administration Carvedilol 3.125 mg 08/02/24 21:00 08/11/24 08:43 Carvedilol 3.125 Mg Tablet PO 3.125 mg Q12HR THERESE Administration Cyanocobalamin 500 mcg 07/31/24 09:00 08/11/24 08:37 Cyanocobalamin 500 Mcg Tablet PO 500 mcg DAILY THERESE Administration Dextrose 12.5 gm 07/30/24 18:29 Dextrose 50% 25 Gm/50 Ml Syringe IV PUSH PRN PRN Hypoglycemia Protocol Dicyclomine HCl 10 mg 07/30/24 21:35 Dicyclomine Hcl 10 Mg Capsule PO BID PRN Abdominal Pain Epoetin Son-epbx 10,000 units 08/11/24 20:32 Epoetin Son-Epbx 10,000 Units/Ml Vial IV PUSH 08/11/24 20:33 ONCE ONE Ergocalciferol 50,000 units 08/02/24 09:00 08/09/24 10:17 Ergocalciferol 50,000 Units Capsule PO 50,000 units WEEKLY THERESE Administration Glucagon 1 mg 07/30/24 18:29 Glucagon For Inj 1 Mg Vial IM PRN PRN Hypoglycemia Protocol Glucose 15 gm 07/30/24 18:29 Glucose Oral Gel 15 Gm Of Glucse In 37.5 Gm Tube PO PRN PRN Hypoglycemia Protocol Guaifenesin 600 mg 08/10/24 21:00 08/11/24 11:27 Guaifenesin 12 Hr 600 Mg Tabcr PO Not Given Q12HR THERESE Heparin Sodium (Porcine) 5,000 units 08/03/24 14:00 08/11/24 12:45 Heparin Sodium 5,000 Units/Ml Vial SUB-Q 5,000 units Q8HR THERESE Administration Dextrose 1,000 mls @ 100 mls/hr 07/30/24 18:29 Dextrose 5% 1,000 Ml IVPB PRN PRN Hypoglycemia Protocol Albumin Human 50 mls @ 999 mls/hr 08/01/24 07:00 08/06/24 13:46 Albutein IVPB 08/31/24 06:59 999 mls/hr Q10M PRN Administration HYPOTENSION Insulin Aspart 1 - 2 units 08/01/24 22:20 08/08/24 22:26 Insulin Aspart (*Bkc) 100 Units/Ml SUB-Q 1 units HS THERESE Administration Protocol Insulin Aspart 2 - 5 units 08/10/24 17:50 08/11/24 11:52 Insulin Aspart (*Bkc) 100 Units/Ml SUB-Q 3 units ACHS THERESE Administration Protocol Insulin Glargine 35 units 08/02/24 21:00 08/07/24 23:21 Insulin Glargine (*Bkc) 100 Units/Ml SUB-Q Not Given HS [facility] Levofloxacin 500 mg 08/11/24 16:00 Levofloxacin 500 Mg Tablet PO 08/12/24 23:59 Q48H THERESE Metronidazole 500 mg 08/11/24 20:00 Metronidazole 500 Mg Tablet PO 08/13/24 06:01 Q8HR [facility] Miconazole Nitrate 1 applic 08/06/24 11:52 Miconazole Nitrate 2% Cream 30 Gm Tube TOPICAL Q12HR PRN maceration * Home Med * 1.8 mg 07/31/24 21:00 Liraglutide [Victoza SUB-Q 08/30/24 20:59 2-Agustín] 0.6 Mg/0.1 HS [facility] Ml (18 Mg/3 Ml) Pen Injector Pantoprazole Sodium 40 mg 07/31/24 09:00 08/11/24 08:37 Pantoprazole 40 Mg Tablet PO 40 mg Q12HR THERESE Administration Perflutren Lipid Microsphere 0 ml 08/10/24 20:01 Perflutren Lipid Microspheres 1.5 Ml Vial Diluted To 10 Ml Total Volume IV PUSH 08/13/24 20:01 ONCE PRN adequate visualization Protocol Sevelamer Carbonate 800 mg 07/31/24 08:00 08/11/24 11:52 Sevelamer Carbonate 800 Mg Tablet PO 800 mg TIDWM THERESE Administration Sitagliptin Phosphate 100 mg 07/31/24 09:00 07/31/24 08:56 Sitagliptin Phosphate 100 Mg Tablet PO 100 mg DAILY THERESE Administration Sodium Chloride 1 spray 08/10/24 19:11 Saline 0.65% Steve Soln 44 Ml Btl NASAL Q4HR PRN Congestion Venlafaxine HCl 37.5 mg 08/03/24 11:50 08/09/24 10:17 Venlafaxine Hcl Xr 37.5 Mg Cap PO Not Given DAILY@0800 THERESE Vitamin B Complex/Folic Acid 1 cap 07/31/24 09:00 08/11/24 08:37 Vitamin B Cmplx/Vit C/Folic Ac 1 Capsule PO 1 cap DAILY THERESE Administration Radiology Results: ITS Impressions Chest CTA 08/06/24 08:36 IMPRESSION: 1. No pulmonary embolism. Sensitivity decreased in the smaller subsegmental pulmonary arteries due to respiratory motion. 2. Right middle and lower lobe with fluid and mucus in the bronchi consistent with pneumonia. 3. Small bilateral pleural effusions. 4. 4.3 cm fusiform ascending thoracic aortic aneurysm. 5. 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 Head CT 08/07/24 12:33 IMPRESSION: 1. Normal aging brain. No acute intracranial process. 2. Fluid/mucus in some of the paranasal sinuses consistent with acute sinusitis. Lumbar Spine CT 08/07/24 12:38 IMPRESSION: 1. Mild lumbar spondylosis. Brain MRI 08/08/24 16:41 IMPRESSION: 1. No acute intracranial process. 2. Moderate scattered calcific white matter T2 hyperintensity which within normal limits for age and consistent with chronic small vessel ischemic disease. 3. Fluid/mucus in some of the paranasal sinuses consistent with acute sinusitis. Chest X-Ray 08/11/24 07:10 Impression: Probable mild bibasilar pulmonary edema with minimal right pleural effusion. Stable cardiomegaly. Possible underlying COPD. Chest CT 08/11/24 14:08 IMPRESSION: 1. Small pleural effusions, right worse than left. 2. Ectasia of ascending aorta measuring 4.4 cm. Labs Labs: Laboratory Tests 08/11/24 04:06 08/11/24 04:06 Lactic Acid 0.8 Calcium 7.9 L Total Bilirubin 1.4 H AST 19 ALT 13 Alkaline Phosphatase 74 Total Protein 6.0 L Albumin 3.5
--- NOTE | 2024-08-11 17:07 | P.PNIM_ITS ---
Progress Note: A&P Assessment and Plan (1) Acute respiratory failure with hypoxia: Code(s): J96.01 - Acute respiratory failure with hypoxia Status: Acute Assessment and Plan: CT chest reviewed Currently on dialysis MWF BiPAP Continue to wean (2) RSV infection: Qualifiers: RSV infection type: unspecified Qualified Code(s): B33.8 - Other specified viral diseases Code(s): B33.8 - Other specified viral diseases Status: Acute Assessment and Plan: * Respiratory panel positive for RSV * Continue DuoNebs, Tessalon Perles, Mucinex * intial Chest x-ray negative * Reviewed CT and CXR * Prednisone 40 mg PO (3) ESRD (end stage renal disease) on dialysis: Code(s): N18.6 - End stage renal disease; Z99.2 - Dependence on renal dialysis Status: Chronic Assessment and Plan: continue dialysis Nephrology following (4) Type 2 diabetes mellitus: Qualifiers: Diabetes mellitus complication status: without complication Diabetes mellitus care home insulin use: without extermination supervisor use Qualified Code(s): E11.9 - Type 2 diabetes mellitus without complications Code(s): E11.9 - Type 2 diabetes mellitus without complications Status: Chronic Assessment and Plan: * Blood sugars ranging 139-284 * Hgb A1C 7.1 * Accu checks AC/HS * Low-dose SSI ordered * Hold Lantus 35 units at bedtime * Will hold Victoza and sitagliptin while inpatient * hypoglycemic protocol in place * Diabetic diet ordered * monitor (5) Atrial fibrillation: Qualifiers: Atrial fibrillation type: unspecified Qualified Code(s): I48.91 - Unspecified atrial fibrillation Code(s): I48.91 - Unspecified atrial fibrillation Status: Chronic Assessment and Plan: * EKG showing AFib rate controlled * Not currently on any home medications??? * investigate (6) Anemia: Qualifiers: Anemia type: unspecified type Qualified Code(s): D64.9 - Anemia, unspecified Code(s): D64.9 - Anemia, unspecified Status: Chronic Assessment and Plan: Likely secondary to her end-stage renal disease * Hemoglobin 9.1 (7) Hypertension: Qualifiers: Hypertension type: unspecified Qualified Code(s): I10 - Essential (primary) hypertension Code(s): I10 - Essential (primary) hypertension Status: Chronic Assessment and Plan: * Low blood pressures resolved on Coreg monitor and adjust stable (8) Metabolic encephalopathy: Code(s): G93.41 - Metabolic encephalopathy Status: Acute Assessment and Plan: Currently patient on dialysis Neurology Consulted ABG shows hypercapnia BiPAP settings 06/13 Will consult pulmonology Temporary BiPAP to eliminate CO2 No evidence of receiving anxiolytics or sedatives CT head negative MRI brain reviewed TSH normal, RPR negative, Vitamin B12 normal. Possibly fluid overload vs toxin versus infectious process vs underlying pulmonary disease As per her daughter,recently diagnosed hepatitis B infection Hepatitis B panel shows no acute infection but evidence of exposure Needs to follow-up with GI as outpatient (9) Hepatitis B: Code(s): B19.10 - Unspecified viral hepatitis B without hepatic coma Status: Acute Assessment and Plan: Reviewed Hepatitis B panel (10) Pneumonia: Code(s): J18.9 - Pneumonia, unspecified organism Status: Acute Assessment and Plan: Started on Levaquin and metronidazole Nasal MRSA negative Blood culture neagtive Monitor vital Currently on BiPAP with setting 06/13. Pulmonology consulted and appreciate recs Plan Diabetic neuropathy HOld Venlafaxine monitor DVT prophylaxis on Sq Heparin PT/OT eval for discharge planning Subjective Date/time seen: 08/11/24 17:07 Interval history: Patient continues to feel better. No BiPAP for 24 hours. ABG tomorrow morning. Discussed with Dr. Duenas. Possible acute decline in mentation due to fluid load versus hypercapnia versus RSV versus aspiration pneumonia. Patient underwent dialysis yesterday and 3 L was removed. Patient will complete a course of Levaquin and Flagyl tomorrow. Steroid will be discontinued tomorrow. Ordered echocardiogram. Review of Systems Review of Systems: All systems reviewed & are unremarkable except as noted in HPI and below Constitutional: Constitutional: Reports as per HPI and Reports no additional constitutional complaints Eyes: Eyes: Reports as per HPI and Reports no additional eye complaints ENT: Reports system reviewed and no additional complaints, except as documented and Reports as per HPI Cardiovascular: Cardiovascular: Reports as per HPI and Reports no additional cardiovascular complaints Respiratory: Respiratory: Reports as per HPI and Reports no additional respiratory complaints Gastrointestinal: Gastrointestinal: Reports as per HPI and Reports no additional gastrointestinal complaints Genitourinary: Genitourinary: Reports no additional female genitourinary complaints and Reports as per HPI Musculoskeletal: Musculoskeletal: Reports no additional musculoskeletal complaints and Reports as per HPI Integumentary/Breasts: Skin/Breast: Reports system reviewed and no additional complaints, except as docu and Reports as per HPI Neurologic: Reports system reviewed and no additional complaints, except as documented and Reports as per HPI Psychiatric: Psychiatric: Reports no additional psychiatric complaints and Reports as per HPI Exam Narrative: General: In no acute distress Cardiac: Normal S1 and S2. No murmur, gallops or friction rubs, peripheral pulses intact. Respiratory: Rhonchi with mild expiratory wheezing bilaterally---R>L, , on 1L NC Gastrointestinal: soft, non-distended, non-tender, normoactive bowel sounds. :anuric on HD M-W-F Neuro: Alert and oriented x4 Const: General: comfortable and no acute distress Other: Elderly, female, ill-appearing HENMT: Face/Nose/Sinus: Normal nares present Mouth: Yes moist mucous membranes Eyes: General: appearance normal, both eyes and all related structures Sclera: sclerae normal Pupils: Equal, round and reactive pupils present EOM: EOMs intact bilaterally Resp: Other: Bibasilar crackles, + tachypnea without increased work of breathing Cardio: Rate: regular rate Rhythm: regular rhythm Other: S1-S2 present without murmur, rub, ectopy GI: Other: Abdomen soft, nondistended, nontender. Skin: General skin exam: normal color and no rashes or lesions noted Wounds: no wounds Neuro: Cranial nerves: Yes Equal, round and reactive pupils present Speech: normal speech Motor exam (neuro): 5/5 motor strength present throughout Sensory Exam: normal sensation Other: S1-S2 present without murmur, rub, ectopy Extrem: General: normal exam except as noted Other: +thrill and bruit to RUE fistula. old fistula to LUE. Psych: Mental Status: mental status grossly normal Affect: normal affect Other: Good insight and judgment, pleasant Objective Data Vital Signs Vital Signs: Vital Signs - 24 hr 08/10/24 18:00 08/10/24 19:37 08/10/24 19:37 Temperature 98.4 F Pulse Rate 63 69 70 Respiratory Rate 17 Blood Pressure 153/62 H 169/50 H Pulse Oximetry 100 Oxygen Delivery Oxygen Flow Rate Fraction of Inspired Oxygen 08/10/24 20:00 08/10/24 20:00 08/10/24 20:00 Temperature Pulse Rate 63 63 Respiratory Rate Blood Pressure 147/50 H Pulse Oximetry 100 Oxygen Delivery BiPAP Oxygen Flow Rate Fraction of Inspired Oxygen 30 08/10/24 20:15 08/10/24 20:20 08/10/24 20:30 Temperature Pulse Rate 66 64 Respiratory Rate Blood Pressure 141/58 H 148/50 H Pulse Oximetry Oxygen Delivery Oxygen Flow Rate 2 Fraction of Inspired Oxygen 08/10/24 20:36 08/10/24 20:36 08/10/24 20:45 Temperature Pulse Rate 57 L 57 L 64 Respiratory Rate 20 17 Blood Pressure 127/49 L Pulse Oximetry 100 Oxygen Delivery BiPAP Oxygen Flow Rate Fraction of Inspired Oxygen 08/10/24 21:00 08/10/24 21:15 08/10/24 21:30 Temperature Pulse Rate 63 67 60 Respiratory Rate Blood Pressure 148/59 H 110/46 L 140/42 L Pulse Oximetry Oxygen Delivery Oxygen Flow Rate Fraction of Inspired Oxygen 08/10/24 21:45 08/10/24 22:00 08/10/24 22:00 Temperature Pulse Rate 60 65 60 Respiratory Rate Blood Pressure 124/49 L 150/50 H Pulse Oximetry Oxygen Delivery Oxygen Flow Rate Fraction of Inspired Oxygen 08/10/24 22:15 08/10/24 22:30 08/10/24 22:45 Temperature Pulse Rate 66 82 69 Respiratory Rate Blood Pressure 125/44 L 136/48 L 130/53 L Pulse Oximetry Oxygen Delivery Oxygen Flow Rate Fraction of Inspired Oxygen 08/10/24 22:49 08/10/24 23:11 08/10/24 23:49 Temperature 98.4 F Pulse Rate 69 67 62 Respiratory Rate 16 Blood Pressure 130/50 L 143/45 H Pulse Oximetry 100 Oxygen Delivery Oxygen Flow Rate Fraction of Inspired Oxygen 08/10/24 23:53 08/11/24 00:00 08/11/24 00:00 Temperature 97.6 F Pulse Rate 60 67 Respiratory Rate 16 Blood Pressure 133/50 L Pulse Oximetry 100 100 Oxygen Delivery BiPAP Oxygen Flow Rate Fraction of Inspired Oxygen 30 08/11/24 01:15 08/11/24 02:00 08/11/24 02:21 Temperature Pulse Rate 54 L 47 L 64 Respiratory Rate 15 16 Blood Pressure 116/60 Pulse Oximetry 100 100 Oxygen Delivery BiPAP BiPAP Oxygen Flow Rate Fraction of Inspired Oxygen 08/11/24 03:10 08/11/24 04:00 08/11/24 04:00 Temperature Pulse Rate 54 L 52 L Respiratory Rate 22 H Blood Pressure Pulse Oximetry 100 Oxygen Delivery BiPAP Oxygen Flow Rate Fraction of Inspired Oxygen 30 08/11/24 04:00 08/11/24 06:00 08/11/24 07:35 Temperature 97.8 F 98.4 F Pulse Rate 53 L 56 L 62 Respiratory Rate 18 20 Blood Pressure 127/41 L 135/43 L Pulse Oximetry 100 98 Oxygen Delivery Oxygen Flow Rate Fraction of Inspired Oxygen 08/11/24 08:00 08/11/24 08:43 08/11/24 09:43 Temperature Pulse Rate 74 62 60 Respiratory Rate 20 Blood Pressure Pulse Oximetry Oxygen Delivery Oxygen Flow Rate Fraction of Inspired Oxygen 08/11/24 10:00 08/11/24 11:35 08/11/24 12:00 Temperature 99 F Pulse Rate 66 68 60 Respiratory Rate 16 Blood Pressure 134/40 L Pulse Oximetry 96 Oxygen Delivery Oxygen Flow Rate Fraction of Inspired Oxygen 08/11/24 13:42 08/11/24 14:00 Temperature Pulse Rate 61 Respiratory Rate Blood Pressure Pulse Oximetry 97 Oxygen Delivery Room Air Oxygen Flow Rate Fraction of Inspired Oxygen Intake/Output Intake/Output: Intake & Output 08/08/24 08/09/24 08/10/24 08/11/24 23:59 23:59 23:59 23:59 Intake Total 840 250 615 385 Output Total 1000 0 3000 Balance -160 250 -2385 385 Meds/Results Medications: Active Medications Generic Name Dose Route Start Last Admin Trade Name Freq PRN Reason Stop Dose Admin Acetaminophen 325 mg 08/10/24 00:39 08/10/24 23:50 Acetaminophen 325 Mg Tablet BY MOUTH 325 mg Q4H PRN Administration Pain 1-3 Albuterol/Ipratropium 3 ml 07/30/24 18:22 08/03/24 15:52 Ipratropium 0.5 Mg/Albuterol Sulfate 2.5 Mg Ampul.Neb 3 Ml INHALATION 3 ml Q6HRT PRN Administration Shortness Of Breath Or Wheezing Albuterol/Ipratropium 3 ml 08/09/24 20:00 08/11/24 16:41 Ipratropium 0.5 Mg/Albuterol Sulfate 2.5 Mg Ampul.Neb 3 Ml INHALATION Not Given Q6HRT THERESE Benzocaine 1 lozenge 07/30/24 18:22 07/30/24 21:28 Benzocaine/Menthol (*Bkc) 18 Ea Lozenge PO 1 lozenge PRN PRN Administration Sore Throat Benzonatate 100 mg 07/30/24 18:22 07/30/24 21:27 Benzonatate 100 Mg Capsule PO 100 mg TID PRN Administration Cough Calcium Carbonate 600 mg 08/01/24 17:30 08/11/24 11:52 Calcium Carbonate (Tums) 500 Mg (200 Mg Elemental) PO 600 mg TID THERESE Administration Carvedilol 3.125 mg 08/02/24 21:00 08/11/24 08:43 Carvedilol 3.125 Mg Tablet PO 3.125 mg Q12HR THERESE Administration Cyanocobalamin 500 mcg 07/31/24 09:00 08/11/24 08:37 Cyanocobalamin 500 Mcg Tablet PO 500 mcg DAILY THERESE Administration Dextrose 12.5 gm 07/30/24 18:29 Dextrose 50% 25 Gm/50 Ml Syringe IV PUSH PRN PRN Hypoglycemia Protocol Dicyclomine HCl 10 mg 07/30/24 21:35 Dicyclomine Hcl 10 Mg Capsule PO BID PRN Abdominal Pain Epoetin Son-epbx 10,000 units 08/11/24 20:32 Epoetin Son-Epbx 10,000 Units/Ml Vial IV PUSH 08/11/24 20:33 ONCE ONE Ergocalciferol 50,000 units 08/02/24 09:00 08/09/24 10:17 Ergocalciferol 50,000 Units Capsule PO 50,000 units WEEKLY THERESE Administration Glucagon 1 mg 07/30/24 18:29 Glucagon For Inj 1 Mg Vial IM PRN PRN Hypoglycemia Protocol Glucose 15 gm 07/30/24 18:29 Glucose Oral Gel 15 Gm Of Glucse In 37.5 Gm Tube PO PRN PRN Hypoglycemia Protocol Guaifenesin 600 mg 08/10/24 21:00 08/11/24 11:27 Guaifenesin 12 Hr 600 Mg Tabcr PO Not Given Q12HR THERESE Heparin Sodium (Porcine) 5,000 units 08/03/24 14:00 08/11/24 12:45 Heparin Sodium 5,000 Units/Ml Vial SUB-Q 5,000 units Q8HR THERESE Administration Dextrose 1,000 mls @ 100 mls/hr 07/30/24 18:29 Dextrose 5% 1,000 Ml IVPB PRN PRN Hypoglycemia Protocol Albumin Human 50 mls @ 999 mls/hr 08/01/24 07:00 08/06/24 13:46 Albutein IVPB 08/31/24 06:59 999 mls/hr Q10M PRN Administration HYPOTENSION Insulin Aspart 1 - 2 units 08/01/24 22:20 08/08/24 22:26 Insulin Aspart (*Bkc) 100 Units/Ml SUB-Q 1 units HS THERESE Administration Protocol Insulin Aspart 2 - 5 units 08/10/24 17:50 08/11/24 11:52 Insulin Aspart (*Bkc) 100 Units/Ml SUB-Q 3 units ACHS THERESE Administration Protocol Insulin Glargine 35 units 08/02/24 21:00 08/07/24 23:21 Insulin Glargine (*Bkc) 100 Units/Ml SUB-Q Not Given HS THERESE Levofloxacin 500 mg 08/11/24 16:00 Levofloxacin 500 Mg Tablet PO 08/12/24 23:59 Q48H THERESE Metronidazole 500 mg 08/11/24 14:10 Metronidazole 500 Mg Tablet PO 08/12/24 22:01 Q8HR THERESE Miconazole Nitrate 1 applic 08/06/24 11:52 Miconazole Nitrate 2% Cream 30 Gm Tube TOPICAL Q12HR PRN maceration * Home Med * 1.8 mg 07/31/24 21:00 Liraglutide [Victoza SUB-Q 08/30/24 20:59 2-Agustín] 0.6 Mg/0.1 HS THERESE Ml (18 Mg/3 Ml) Pen Injector Pantoprazole Sodium 40 mg 07/31/24 09:00 08/11/24 08:37 Pantoprazole 40 Mg Tablet PO 40 mg Q12HR THERESE Administration Perflutren Lipid Microsphere 0 ml 08/10/24 20:01 Perflutren Lipid Microspheres 1.5 Ml Vial Diluted To 10 Ml Total Volume IV PUSH 08/13/24 20:01 ONCE PRN adequate visualization Protocol Sevelamer Carbonate 800 mg 07/31/24 08:00 08/11/24 11:52 Sevelamer Carbonate 800 Mg Tablet PO 800 mg TIDWM THERESE Administration Sitagliptin Phosphate 100 mg 07/31/24 09:00 07/31/24 08:56 Sitagliptin Phosphate 100 Mg Tablet PO 100 mg DAILY THERESE Administration Sodium Chloride 1 spray 08/10/24 19:11 Saline 0.65% Steve Soln 44 Ml Btl NASAL Q4HR PRN Congestion Venlafaxine HCl 37.5 mg 08/03/24 11:50 08/09/24 10:17 Venlafaxine Hcl Xr 37.5 Mg Cap PO Not Given DAILY@0800 THERESE Vitamin B Complex/Folic Acid 1 cap 07/31/24 09:00 08/11/24 08:37 Vitamin B Cmplx/Vit C/Folic Ac 1 Capsule PO 1 cap DAILY THERESE Administration Radiology Results: ITS Impressions Chest CTA 08/06/24 08:36 IMPRESSION: 1. No pulmonary embolism. Sensitivity decreased in the smaller subsegmental pulmonary arteries due to respiratory motion. 2. Right middle and lower lobe with fluid and mucus in the bronchi consistent with pneumonia. 3. Small bilateral pleural effusions. 4. 4.3 cm fusiform ascending thoracic aortic aneurysm. 5. 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 Head CT 08/07/24 12:33 IMPRESSION: 1. Normal aging brain. No acute intracranial process. 2. Fluid/mucus in some of the paranasal sinuses consistent with acute sinusitis. Lumbar Spine CT 08/07/24 12:38 IMPRESSION: 1. Mild lumbar spondylosis. Brain MRI 08/08/24 16:41 IMPRESSION: 1. No acute intracranial process. 2. Moderate scattered calcific white matter T2 hyperintensity which within normal limits for age and consistent with chronic small vessel ischemic disease. 3. Fluid/mucus in some of the paranasal sinuses consistent with acute sinusitis. Chest X-Ray 08/11/24 07:10 Impression: Probable mild bibasilar pulmonary edema with minimal right pleural effusion. Stable cardiomegaly. Possible underlying COPD. Chest CT 08/11/24 14:08 IMPRESSION: 1. Small pleural effusions, right worse than left. 2. Ectasia of ascending aorta measuring 4.4 cm. Labs Labs: Laboratory Results - last 24 hr 08/10/24 08/10/24 08/10/24 18:12 20:14 23:47 WBC 7.9 RBC 2.63 L Hgb 8.6 L Hct 27.9 L MCV 106.1 H D MCH 32.7 MCHC 30.8 L RDW 17.7 H Plt Count 124 L MPV 11.4 H Immature Gran % (Auto) 0.8 H Neut % (Auto) 92.5 H Lymph % (Auto) 5.2 L Carver % (Auto) 1.5 L Eos % (Auto) 0.0 Baso % (Auto) 0.0 L Lymph # (Auto) 0.41 L Carver # (Auto) 0.1 Eos # (Auto) 0.0 Baso # (Auto) 0.0 Abs Immat Gran (auto) 0.06 H Absolute Neuts (auto) 7.3 H Absolute Nucleated RBC 0.030 H Nucleated RBC % 0.4 H Platelet Estimate Decreased Polychromasia 1+ Basophilic Stippling 1+ Anisocytosis 1+ Macrocytosis 1+ Stuart Cells 1+ Schistocytes None seen Puncture Site ABG pH ABG pCO2 ABG pO2 ABG PO2/FiO2 Ratio ABG HCO3 ABG O2 Saturation ABG O2 Content ABG Base Excess A-a Gradient Oxyhemoglobin Total Hemoglobin O2 Delivery Device O2 Liters/Min FiO2 Sodium 128 L Potassium 4.3 Chloride 95 L Carbon Dioxide 23 Anion Gap 10 BUN 43 H D Creatinine 4.34 H Estim Creat Clear Calc Not Reportable Estimated GFR 10 L Glucose 225 H POC Capillary Glucose 257 H 254 H Lactic Acid Calcium 8.1 L Total Bilirubin 1.3 AST 18 ALT 14 Alkaline Phosphatase 81 NT-Pro-B Natriuret Pep Total Protein 6.0 L Albumin 3.6 Procalcitonin 08/11/24 08/11/24 08/11/24 03:59 04:06 08:08 WBC 8.1 RBC 2.71 L Hgb 8.9 L Hct 29.9 L MCV 110.3 H MCH 32.8 MCHC 29.8 L RDW 17.3 H Plt Count 119 L MPV 11.3 H Immature Gran % (Auto) 0.4 Neut % (Auto) 86.7 H Lymph % (Auto) 9.1 L Carver % (Auto) 3.7 Eos % (Auto) 0.0 Baso % (Auto) 0.1 L Lymph # (Auto) 0.73 L Carver # (Auto) 0.3 Eos # (Auto) 0.0 Baso # (Auto) 0.0 Abs Immat Gran (auto) 0.03 Absolute Neuts (auto) 7.0 H Absolute Nucleated RBC 0.030 H Nucleated RBC % 0.4 H Platelet Estimate Adequate Polychromasia 1+ Basophilic Stippling Anisocytosis Macrocytosis 1+ Wallace Cells Schistocytes None seen Puncture Site ABG pH ABG pCO2 ABG pO2 ABG PO2/FiO2 Ratio ABG HCO3 ABG O2 Saturation ABG O2 Content ABG Base Excess A-a Gradient Oxyhemoglobin Total Hemoglobin O2 Delivery Device O2 Liters/Min FiO2 Sodium 129 L Potassium 4.3 Chloride 97 L Carbon Dioxide 17 L Anion Gap 15 H BUN 52 H Creatinine 4.57 H Estim Creat Clear Calc Not Reportable Estimated GFR 9 L Glucose 200 H POC Capillary Glucose 162 H Lactic Acid 0.8 Calcium 7.9 L Total Bilirubin 1.4 H AST 19 ALT 13 Alkaline Phosphatase 74 NT-Pro-B Natriuret Pep > 38655 H Total Protein 6.0 L Albumin 3.5 Procalcitonin 0.9 08/11/24 08/11/24 08:49 11:39 WBC RBC Hgb Hct MCV MCH MCHC RDW Plt Count MPV Immature Gran % (Auto) Neut % (Auto) Lymph % (Auto) Carver % (Auto) Eos % (Auto) Baso % (Auto) Lymph # (Auto) Carver # (Auto) Eos # (Auto) Baso # (Auto) Abs Immat Gran (auto) Absolute Neuts (auto) Absolute Nucleated RBC Nucleated RBC % Platelet Estimate Polychromasia Basophilic Stippling Anisocytosis Macrocytosis Stuart Cells Schistocytes Puncture Site Right radial ABG pH 7.315 L ABG pCO2 38.8 ABG pO2 62.5 L ABG PO2/FiO2 Ratio 2.98 ABG HCO3 19.3 L ABG O2 Saturation 90.2 L ABG O2 Content 13.4 L ABG Base Excess -6.3 A-a Gradient 40.8 Oxyhemoglobin 92.0 Total Hemoglobin 10.3 L O2 Delivery Device Room air O2 Liters/Min Not Reportable FiO2 21 Sodium Potassium Chloride Carbon Dioxide Anion Gap BUN Creatinine Estim Creat Clear Calc Estimated GFR Glucose POC Capillary Glucose 289 H Lactic Acid Calcium Total Bilirubin AST ALT Alkaline Phosphatase NT-Pro-B Natriuret Pep Total Protein Albumin Procalcitonin Quality VTE Prophylaxis VTE prophylaxis: mechanical ordered Hospitalist MIPS Advance Care Plan I have confirmed that the patient's Advanced Care Plan is present, code status is documented, or surrogate decision maker is listed in patient medical record.: Yes Medication Reconciliation I have utilized all available resources to obtain, update and review the patients current medications (includes all prescriptions, OTC, herbals, cannabis, and nutritional supplements).: Yes
[2024-08-11] MEDS: levoFLOXacin 500 MG TABLET PO (19:01)
[2024-08-11 19:05] LABS: Glucose Point of Care 203 mg/dl (65-105)
[2024-08-11] MEDS: metroNIDAZOLE 500 MG TABLET PO (20:14)
[2024-08-12] VITALS (26 sets, daily range): BP systolic 120–139; BP diastolic 35–48; PULSE 58–81; RESP 16–22; TEMP 36.8–37.2; O2SAT 90–100
[2024-08-12 02:20] LABS: Glucose Point of Care 220 mg/dl (65-105)
[2024-08-12 05:19] LABS: Alveolar/Arterial O2 Gradient 40.3 mmHg; Base Excess ABG -1.2 mEq/l (+/-2.0); Fractional Inspired Oxygen 21 %; HCO3 ABG 23.8 mEq/l (22.0-26.0); Oxygen Saturation ABG 90.9 % (95.0-100.0); Oxyhemoglobin 91.8 % THb (90.0-100.0); PCO2 ABG 40.9 mmHg (35.0-45.0); PO2 ABG 60.5 mmHg (80.0-100.0); PO2 FiO2 Ratio Arterial Blood 2.88 %; pH ABG 7.383 (7.350-7.450)
[2024-08-12 05:20] LABS: Device ROOM AIR; Site Drawn LEFT BRACHIAL
[2024-08-12] MEDS: INSULIN ASPART (*BKC) 100 UNITS/ML SUB-Q ×4 (05:42→20:58)
[2024-08-12] MEDS: metroNIDAZOLE 500 MG TABLET PO (05:43)
[2024-08-12] MEDS: HEPARIN SODIUM 5,000 UNITS/ML VIAL 5000 UNITS SUB-Q ×3 (05:43→21:02)
[2024-08-12 05:52] LABS: Glucose Point of Care 266 mg/dl (65-105)
[2024-08-12] MEDS: IPRATROPIUM 0.5 MG/ALBUTEROL SULFATE 2.5 MG AMPUL.NEB 3 ML INHALATION ×3 (07:21→20:15)
[2024-08-12 07:46] LABS: NT Pro B Type Natriuretic Pept > 30000 pg/mL (19.9-100)
[2024-08-12 08:10] LABS: Glucose Point of Care 217 mg/dl (65-105)
[2024-08-12] MEDS: CALCIUM CARBONATE (TUMS) 500 MG (200 MG ELEMENTAL) 600 MG PO ×3 (08:41→17:31)
[2024-08-12] MEDS: guaiFENesin 12 HR 600 MG TABCR PO (08:41)
[2024-08-12] MEDS: SEVELAMER CARBONATE 800 MG TABLET PO ×3 (08:42→17:31)
[2024-08-12] MEDS: CYANOCOBALAMIN 500 MCG TABLET PO (08:42)
[2024-08-12] MEDS: PANTOPRAZOLE 40 MG TABLET PO ×2 (08:42→20:57)
[2024-08-12] MEDS: carvediloL 3.125 MG TABLET PO ×2 (08:42→20:57)
[2024-08-12] MEDS: VITAMIN B CMPLX/VIT C/FOLIC AC 1 CAPSULE 1 CAP PO (08:44)
--- NOTE | 2024-08-12 10:00 | P.PNNP_ITS ---
Progress Note: A&P Assessment and Plan (1) End stage renal disease: Code(s): N18.6 - End stage renal disease Status: Chronic Assessment and Plan: * HD tomorrow * continue M/W/F dialysis schedule while hospitalized * follow electrolytes, volume status, and clearance (2) Altered mental status: Code(s): R41.82 - Altered mental status, unspecified Status: Acute Assessment and Plan: * significant improvement * evaluation to date noted: * CT of head negative * off all sedating medication * MRI of brain unremarkable * TSH/RPR/Vitamin B12 okay * blood gas done on 08/09 with evidence of CO2 retention (though to be secondary to fluid overload) * empiric antibiotics * follow mentation (3) Hypoxia: Code(s): R09.02 - Hypoxemia Status: Acute Assessment and Plan: * resolved - on room air * as noted by EMS on admission * 80% oxygen saturations on room air * improved with 2L oxygen by nasal cannula * presumably due to mild pulmonary edema and RSV (as noted on admission) * s/p DUF with 3L fluid on 08/10 and 2L with HD yesterday * continue supportive therapy (4) RSV infection: Qualifiers: RSV infection type: unspecified Qualified Code(s): B33.8 - Other specified viral diseases Code(s): B33.8 - Other specified viral diseases Status: Acute Assessment and Plan: * tested positive for RSV on 07/30 in ER * reported onset of symptoms on 07/28 * continues supportive care: * Mucinex * Tessalon Perles p.r.n. * DuoNeb as needed * Tylenol (5) Atrial fibrillation: Qualifiers: Atrial fibrillation type: unspecified Qualified Code(s): I48.91 - Unspecified atrial fibrillation Code(s): I48.91 - Unspecified atrial fibrillation Status: Chronic Assessment and Plan: * paroxysmal * rate controlled * not on anticoagulation (due to hx of GI bleeding versus fall risk?) (6) Anemia: Qualifiers: Anemia type: unspecified type Qualified Code(s): D64.9 - Anemia, unspecified Code(s): D64.9 - Anemia, unspecified Status: Chronic Assessment and Plan: * related to ESRD * Epogen with HD * follow trend of H/H (7) Hypertension: Qualifiers: Hypertension type: unspecified Qualified Code(s): I10 - Essential (primary) hypertension Code(s): I10 - Essential (primary) hypertension Status: Chronic Assessment and Plan: * reasonable control * follow hemodynamics (8) Type 2 diabetes mellitus: Qualifiers: Diabetes mellitus usp insulin use: without usp use Diabetes mellitus complication status: without complication Qualified Code(s): E11.9 - Type 2 diabetes mellitus without complications Code(s): E11.9 - Type 2 diabetes mellitus without complications Status: Chronic Assessment and Plan: * follow accuchecks * glycemic control per hospitalists Will continue to follow. L Subjective Date/time seen: 08/12/24 10:00 Interval history: Follow-up for end stage renal disease on hemodialysis. Following dry ultrafiltration on 08/10 (3L fluid removal) and hemodialysis yesterday (2L fluid removal), she reports significant improvement in her breathing/respiratory status; no evidence of CO2 retention by last ABG; no apparent distress noted at the time of my visit; feels reasonably well; working with PT/OT as tolerated. Exam 2 Narrative: General: elderly female in NAD Heart: normal S1 and S2; no rub Lungs: clear anteriorly; decreased at bases Abdomen: soft, nontender, nondistended, positive bowel sounds Extremities: no cyanosis or clubbing; no edema Skin: warm and intact Objective Data Vital Signs Vital Signs: Vital Signs Temp Pulse Resp BP Pulse Ox O2 Del Method FiO2 08/12/24 10:00 77 08/12/24 08:42 76 08/12/24 08:00 78 08/12/24 08:00 76 20 99 Room Air 30 08/12/24 07:42 98.9 F 63 20 130/48 L 99 08/12/24 07:32 65 16 08/12/24 07:22 69 16 08/12/24 06:00 66 08/12/24 04:21 98.6 F 65 18 136/35 L 95 08/12/24 04:00 73 08/12/24 04:00 Room Air 08/12/24 02:00 63 08/12/24 00:00 58 L 08/12/24 00:00 Room Air 08/11/24 23:54 98.6 F 63 18 122/37 L 95 08/11/24 22:40 95 Room Air 08/11/24 22:00 73 08/11/24 21:02 72 16 08/11/24 21:01 95 Room Air 08/11/24 20:29 98.7 F 77 18 104/41 L 96 08/11/24 20:15 77 08/11/24 20:00 Room Air 08/11/24 20:00 71 08/11/24 18:38 98.9 F 68 18 168/61 H 08/11/24 18:20 79 128/75 08/11/24 18:15 77 107/66 Intake/Output Intake/Output: Intake & Output 08/09/24 08/10/24 08/11/24 08/12/24 23:59 23:59 23:59 23:59 Intake Total 250 615 385 480 Output Total 0 3000 2000 1 Balance 805 -7559 -6048 287 Meds/Results Medications: Active Medications Generic Name Dose Route Start Last Admin Trade Name Freq PRN Reason Stop Dose Admin Acetaminophen 325 mg 08/10/24 00:39 08/10/24 23:50 Acetaminophen 325 Mg Tablet BY MOUTH 325 mg Q4H PRN Administration Pain 1-3 Albuterol/Ipratropium 3 ml 08/09/24 20:00 08/12/24 13:16 Ipratropium 0.5 Mg/Albuterol Sulfate 2.5 Mg Ampul.Neb 3 Ml INHALATION 3 ml Q6HRT THERESE Administration Benzocaine 1 lozenge 07/30/24 18:22 07/30/24 21:28 Benzocaine/Menthol (*Bkc) 18 Ea Lozenge PO 1 lozenge PRN PRN Administration Sore Throat Benzonatate 100 mg 07/30/24 18:22 07/30/24 21:27 Benzonatate 100 Mg Capsule PO 100 mg TID PRN Administration Cough Calcium Carbonate 600 mg 08/01/24 17:30 08/12/24 17:34 Calcium Carbonate (Tums) 500 Mg (200 Mg Elemental) PO 600 mg TID THERESE Administration Carvedilol 3.125 mg 08/02/24 21:00 08/12/24 08:42 Carvedilol 3.125 Mg Tablet PO 3.125 mg Q12HR THERESE Administration Cyanocobalamin 500 mcg 07/31/24 09:00 08/12/24 08:42 Cyanocobalamin 500 Mcg Tablet PO 500 mcg DAILY THERESE Administration Dextrose 12.5 gm 07/30/24 18:29 Dextrose 50% 25 Gm/50 Ml Syringe IV PUSH PRN PRN Hypoglycemia Protocol Dicyclomine HCl 10 mg 07/30/24 21:35 Dicyclomine Hcl 10 Mg Capsule PO BID PRN Abdominal Pain Ergocalciferol 50,000 units 08/02/24 09:00 08/09/24 10:17 Ergocalciferol 50,000 Units Capsule PO 50,000 units WEEKLY THERESE Administration Glucagon 1 mg 07/30/24 18:29 Glucagon For Inj 1 Mg Vial IM PRN PRN Hypoglycemia Protocol Glucose 15 gm 07/30/24 18:29 Glucose Oral Gel 15 Gm Of Glucse In 37.5 Gm Tube PO PRN PRN Hypoglycemia Protocol Guaifenesin 600 mg 08/12/24 10:52 Guaifenesin 12 Hr 600 Mg Tabcr PO Q12HR PRN Cough Heparin Sodium (Porcine) 5,000 units 08/03/24 14:00 08/12/24 17:31 Heparin Sodium 5,000 Units/Ml Vial SUB-Q 5,000 units Q8HR THERESE Administration Dextrose 1,000 mls @ 100 mls/hr 07/30/24 18:29 Dextrose 5% 1,000 Ml IVPB PRN PRN Hypoglycemia Protocol Albumin Human 50 mls @ 999 mls/hr 08/01/24 07:00 08/06/24 13:46 Albutein IVPB 08/31/24 06:59 999 mls/hr Q10M PRN Administration HYPOTENSION Insulin Aspart 1 - 2 units 08/01/24 22:20 08/08/24 22:26 Insulin Aspart (*Bkc) 100 Units/Ml SUB-Q 1 units HS [facility] Administration Protocol Insulin Aspart 2 - 5 units 08/10/24 17:50 08/12/24 17:30 Insulin Aspart (*Bkc) 100 Units/Ml SUB-Q 5 units ACHS THERESE Administration Protocol Insulin Glargine 35 units 08/02/24 21:00 08/07/24 23:21 Insulin Glargine (*Bkc) 100 Units/Ml SUB-Q Not Given HS [facility] Miconazole Nitrate 1 applic 08/06/24 11:52 Miconazole Nitrate 2% Cream 30 Gm Tube TOPICAL Q12HR PRN maceration * Home Med * 1.8 mg 07/31/24 21:00 Liraglutide [Victoza SUB-Q 08/30/24 20:59 2-Agustín] 0.6 Mg/0.1 HS THERESE Ml (18 Mg/3 Ml) Pen Injector Pantoprazole Sodium 40 mg 07/31/24 09:00 08/12/24 08:42 Pantoprazole 40 Mg Tablet PO 40 mg Q12HR THERESE Administration Perflutren Lipid Microsphere 0 ml 08/10/24 20:01 Perflutren Lipid Microspheres 1.5 Ml Vial Diluted To 10 Ml Total Volume IV PUSH 08/13/24 20:01 ONCE PRN adequate visualization Protocol Sevelamer Carbonate 800 mg 07/31/24 08:00 08/12/24 17:31 Sevelamer Carbonate 800 Mg Tablet PO 800 mg TIDWM THERESE Administration Sitagliptin Phosphate 100 mg 07/31/24 09:00 07/31/24 08:56 Sitagliptin Phosphate 100 Mg Tablet PO 100 mg DAILY THERESE Administration Sodium Chloride 1 spray 08/10/24 19:11 Saline 0.65% Steve Soln 44 Ml Btl NASAL Q4HR PRN Congestion Venlafaxine HCl 37.5 mg 08/03/24 11:50 08/09/24 10:17 Venlafaxine Hcl Xr 37.5 Mg Cap PO Not Given DAILY@0800 THERESE Vitamin B Complex/Folic Acid 1 cap 07/31/24 09:00 08/12/24 08:44 Vitamin B Cmplx/Vit C/Folic Ac 1 Capsule PO 1 cap DAILY THERESE Administration Radiology Results: ITS Impressions Chest CTA 08/06/24 08:36 IMPRESSION: 1. No pulmonary embolism. Sensitivity decreased in the smaller subsegmental pulmonary arteries due to respiratory motion. 2. Right middle and lower lobe with fluid and mucus in the bronchi consistent with pneumonia. 3. Small bilateral pleural effusions. 4. 4.3 cm fusiform ascending thoracic aortic aneurysm. 5. 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 Head CT 08/07/24 12:33 IMPRESSION: 1. Normal aging brain. No acute intracranial process. 2. Fluid/mucus in some of the paranasal sinuses consistent with acute sinusitis. Lumbar Spine CT 08/07/24 12:38 IMPRESSION: 1. Mild lumbar spondylosis. Brain MRI 08/08/24 16:41 IMPRESSION: 1. No acute intracranial process. 2. Moderate scattered calcific white matter T2 hyperintensity which within normal limits for age and consistent with chronic small vessel ischemic disease. 3. Fluid/mucus in some of the paranasal sinuses consistent with acute sinusitis. Chest X-Ray 08/11/24 07:10 Impression: Probable mild bibasilar pulmonary edema with minimal right pleural effusion. Stable cardiomegaly. Possible underlying COPD. Chest CT 08/11/24 14:08 IMPRESSION: 1. Small pleural effusions, right worse than left. 2. Ectasia of ascending aorta measuring 4.4 cm. Labs Labs: Laboratory Tests 08/11/24 04:06 08/11/24 04:06
--- NOTE | 2024-08-12 10:44 | PM.PNPUL ---
Progress Note: A&P Assessment and Plan (1) Acute respiratory failure with hypoxia and hypercapnia: Code(s): J96.01 - Acute respiratory failure with hypoxia; J96.02 - Acute respiratory failure with hypercapnia Status: Acute Assessment and Plan: Patient had 3 days of cough, sore throat prior to admission; was at dialysis when she worsened, came to ER, had (+) RSV, admitted for treatment. There is no specific treatment, she had supportive care, improved. She was admitted with normal serum bicarbonate, developed acute mental status changes Aug 07 as she was close to being discharged after a week in-patient for RSV with ABGs showing increased pCO2, negative brain MRI, acute sinusitis. She responded to BiPAP which improved ventilation. Her WBC started to increase, antibiotics started, waxing and waning mental status. Today when I saw her 5 p.m., she was alert and clear thinking with family at bedside. Discussion was occurring regarding level of care. She is already DNR. She was worried about dying earlier today. Dr Costa addressed her hypercapnia, corrected elevated pCO2 which was 71.3 using BiPAP 14/5 with back up rate 14; pCO2 decreased to 42.9 after this BiPAP setting was used. She is having some increase in pCO2 again, not as severe, pCo2 57. This is not completely new. She has similar ABG in 2019, probably has some underlying pulmonary disease secondary to secondhand smoking or some decreased cardiac function, had moderate aortic stenosis noted on the last echo in November 2023. She is also higher in weight compared to her baseline dry weight. She has [address] Suarez considered a repeat dialysis treatment today but the patient was not treated due to staffing issues. Excessive total body weight may contribute to elevated CO2 retention. She is due to have a dialysis treatment tomorrow. 08/13/24: Patient is sitting in a chair. Patient wore BiPAP last night rate of 14 pressure 16/5 with 24% FiO2 and saturations 100%. She said the machine was very painful and she did not sleep well. patient had hemodialysis late yesterday with 3 L removed. She is waking communicative States that her breathing is normal. Her phlegm is 95% back to normal in described as a small amount of phlegm. She has no hemoptysis. Currently she is on room air with saturations 100%. Patient had an ABG this morning on room air of 7.32/39/63. patient is afebrile. White blood cell count 8.1, creatinine 4.57, BUN 52. Serum bicarbonate 17. BNP is greater than 30,000. Procalcitonin 0.9. She has no wheezing. chest x-ray today with cardiomegaly, mild bibasilar interstitial infiltrates small right pleural effusion. Plan: Patient tells me she did not do well with the BiPAP. Currently she is not hypercarbic after dialysis last night. Will leave off of BiPAP and repeat ABG in the morning off BiPAP for greater than 24 hours to reassess hypercarbic respiratory failure. Currently she is on room air with saturations 100%. Patient is being treated for possible pneumonia and she is on Levaquin and Flagyl since 08/09/24. she has no current respiratory complaints, no phlegm production, afebrile, no leukocytosis, no focal infiltrates on her chest x-ray. Patient is scheduled to get a CT scan of the chest today and will consider deescalation. BNP remains greater than 30,000, to have a CT scan today looking for evidence of fluid overload. Patient is scheduled to receive hemodialysis today as well. 11/15/2023 echocardiogram with moderate aortic stenosis valve area 1.4 centimeters squared. Repeat echocardiogram ordered. Later in the day the patient had a CT scan of the chest that showed small bilateral effusions right greater than left, mild atelectasis, no infiltrates or focal consolidations. Later in the day she had an echocardiogram with an LVEF 65-70, abnormal diastolic function, severe left atrial and right atrial enlargement, mild aortic stenosis with a valve area of 1.6, mild mitral regurg, normal RV systolic function, PASP 59. 08/14/2024: Patient tells me she is breathing normally. She has no cough, phlegm or hemoptysis. She slept better last night on room air. Currently she is on room air with saturations 97%. Patient had an overnight oximetry on room air with recording duration 6 hours and 15 minutes. Average saturation 99%. Low saturation 96%. Time with saturation less than or equal to 88% was 0 minutes. Oxygen desaturation index was 0. Patient had an ABG off of BiPAP for 30 hours with a pH of 7.38/41/61. Patient underwent hemodialysis yesterday with removal of 2 L. patient tells me the DuoNebs provide her no benefit. Plan: After 2 sessions of hemodialysis patient says she is breathing normally. She has no hypoxemia or hypercarbic respiratory failure on this morning's blood gas. Suspect her hypercarbic hypoxemic respiratory failure was related to fluid overload. Of note she still has bilateral pleural effusions on her CT scan. Patient has no evidence of infection on her CT scan of the chest and will discontinue antibiotics today. She received 4 days of Levaquin and Flagyl. Patient tells me she does not benefit from DuoNebs and I will discontinue at this time. Discussed with Abraham, will sign off, call with questions. (2) RSV infection: Qualifiers: RSV infection type: unspecified Qualified Code(s): B33.8 - Other specified viral diseases Code(s): B33.8 - Other specified viral diseases Status: Acute Assessment and Plan: 08/10/24: RSV can have symptoms that last a couple months after infection including coughing, shortness of breath, wheezing. I did not hear wheezing today. She might benefit from inhaler therapy with ICS-LABA. Currently, she is on oral prednisone nad nebulized albuterol and ipratropium. 08/11/24: Patient currently with no respiratory symptoms. Plan: She has received 9 days of prednisone 40 mg p.o. q.day will discontinue. Continue DuoNebs q.6 hours. Continue guaifenesin 600 p.o. b.i.d.. Cornet flutter valve t.i.d.. 08/12/24: Currently with no symptoms. CT scan of the chest shows no focal infiltrates, no evidence of RSV bronchiolitis at this time. No additional treatment required at this time. I will change her guaifenesin to p.r.n.. Subjective Date/time seen: 08/12/24 10:44 Interval history: 08/10/24: NEW pulmonary consult: pt was seen 08/10/2024 at 17:55 Room 202; Family members were present including daughters Renata, Tracie, and her son Topher; 2 cousins also were present. Shasta Obando is a 79-year-old woman, has ESRD on hemodialysis, was admitted about 08/01/24 from dialysis with increasing shortness of breath, cough and sore throat for 3 days, failed out patient amoxicillin. She had (+) RSV diagnosed on Jul 28. CTA on admission showed no PE, mucus in the airways and compressive atelectasis in the right base due to pleural effusion. WBC = 10 on admission, increased to 12.9 Aug 08, 11.4 Aug 09. She is not running a fever. She had an abrupt deterioration in her mentation on Aug 07, on the day that she was scheduled for discharge. Workup included brain MRI, nothing acute other than sinusitis. Yesterday Aug 09, ABGs were obtained showing acute increase in pCO2, see below. She has no history of smoking, however lived with her who smoked. Levaquin and IV Flagyl were started Aug 09 with increased WBC. She does not have sputum to send for evaluation. Today, Aug 10, her small left arm IV has started to fail, not effective for using for IV antibiotics. Her Levaquin was changed to oral. A repeat chest CT is ordered for tomorrow. The patient get HD , would have had an extra treatment this weekend however staffing did not allow for her to have a treatment today. Her weight is 58.3 kg; her admission weight was between 50-54 kg. during this admission, her Hep B core antibody and Hepatitis Be antibody turned positive. She was up to date with all vaccinations, specifically RSV, according to an office visit with primary care in February,. PMH: Osteoarthritis left knee, lumbar spondylosis, low back pain, Left sacroiliac pain. Sees Ortho and Pain management. HTN. DM, PAD with intervention by Dr Villa = performed atherectomy and balloon angioplasty of occluded left anterior tibial artery 03/20/2018, another peripheral intervention Dr Villa 09/26/2018; 2019 toe amputation by her engineering executive from the right foot. ESRD on HD, HTN, DM, peripheral arterial disease, NSAID related gastric ulceration and GI bleed in 2017 with transfusion, and has not been able to tolerate anticoagulation for atrial fibrillation; she has been on HD for over 10 years, managed by Dr Suarez. She has atrial fibrillation since 2016, a Watchman left atrial appendage occluder placed in 07/23/2018 at [facility] Dr Mccloud. Last cardiology note from [facility] was 04/03/2022. She is followed at [facility] office here, Dr Seay. She is not a renal transplant candidate due to medical complex illness. 08/13/24: Patient is sitting in a chair. Patient wore BiPAP last night rate of 14 pressure 16/5 with 24% FiO2 and saturations 100%. She said the machine was very painful and she did not sleep well. patient had hemodialysis late yesterday with 3 L removed. She is waking communicative States that her breathing is normal. Her phlegm is 95% back to normal in described as a small amount of phlegm. She has no hemoptysis. Currently she is on room air with saturations 100%. Patient had an ABG this morning on room air of 7.32/39/63. patient is afebrile. White blood cell count 8.1, creatinine 4.57, BUN 52. Serum bicarbonate 17. BNP is greater than 30,000. Procalcitonin 0.9. She has no wheezing. chest x-ray today with cardiomegaly, mild bibasilar interstitial infiltrates small right pleural effusion. Later in the day the patient had a CT scan of the chest that showed small bilateral effusions right greater than left, mild atelectasis, no infiltrates or focal consolidations. Later in the day she had an echocardiogram with an LVEF 65-70, abnormal diastolic function, severe left atrial and right atrial enlargement, mild aortic stenosis with a valve area of 1.6, mild mitral regurg, normal RV systolic function, PASP 59. 08/14/2024: Patient tells me she is breathing normally. She has no cough, phlegm or hemoptysis. She slept better last night on room air. Currently she is on room air with saturations 97%. Patient had an overnight oximetry on room air with recording duration 6 hours and 15 minutes. Average saturation 99%. Low saturation 96%. Time with saturation less than or equal to 88% was 0 minutes. Oxygen desaturation index was 0. Patient had an ABG off of BiPAP for 30 hours with a pH of 7.38/41/61. Patient underwent hemodialysis yesterday with removal of 2 L. DATA * ABGs Her ABG in 2019 shows mild to moderate hypercapnia and hypoxemia, and she was discharged on O2 for a few weeks when she was in [place] for SNF. She has not required O2 since. These arterial blood gases from 2020 suggest that she has some underlying pulmonary dysfunction as she was hypoxemic and hypercapnic then, went home on O2. DATE: 08/06/2024 08:33 INDICATION: Pulmonary embolism with hypoxia TECHNIQUE: Computed tomography (CT) pulmonary angiogram of the chest was performed with 100 mL Omnipaque-350 intravenous contrast. Additional 3D reconstructions utilizing coronal maximum intensity projection (MIP) were performed. Automated exposure control and iterative reconstruction technique were employed. The dose-length product was 189.63 mGy-cm. COMPARISON: None FINDINGS: No pulmonary embolism. There is however moderate scattered respiratory motion which decreases sensitivity, mildly in the segmental pulmonary arteries and more significantly in the smaller more peripheral subsegmental pulmonary arteries. Small bilateral pleural effusions. There is consolidation a right middle and lower lobes with associated fluid/mucus in the bronchi suspicious for pneumonia. Mild dependent compressive atelectasis in the left lower lobe. No pulmonary edema. Cardiomegaly. Atherosclerotic coronary artery calcifications and aortic valve calcification. No pericardial effusion. Left atrial appendage occlusion device. Fusiform ascending thoracic aortic aneurysm measuring 4.3 cm in maximal diameter. This tapers to normal caliber of 2.8 cm at the isthmus. There is stenting of the right subclavian vein. No pathologically enlarged thoracic lymphadenopathy. Likely benign rim calcified 7 mm nodule at the inferior left thyroid lobe. Hepatic calcification consistent with old granulomatous disease. Moderate to severe atrophy at the upper pole of the left kidney. Moderate to severe thoracic spondylosis with prominent diffuse osteopenia relatively sparing the endplates in the spine which could be seen in the setting of renal osteodystrophy. IMPRESSION: 1. No pulmonary embolism. Sensitivity decreased in the smaller subsegmental pulmonary arteries due to respiratory motion. 2. Right middle and lower lobe with fluid and mucus in the bronchi consistent with pneumonia. 3. Small bilateral pleural effusions. 4. 4.3 cm fusiform ascending thoracic aortic aneurysm. 5. 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 11/15/2023: Echocardiogram [facility] report: Conclusions: Normal left ventricular size. Moderate concentric left ventricular hypertrophy. Normal global LV systolic function. Indeterminate diastolic function. Ejection fraction is visually estimated at 65%. Ejection fraction is measured at 70%. Global longitudinal strain is -19%. Normal appearance of the mitral valve. Moderate mitral annular calcification. Trivial regurgitation of the mitral valve. Moderate aortic stenosis. Valve area is 1.4 cm. Trileaflet aortic valve. Atrial fibrillation. Marked biatrial enlargement. Within the body of the report it says right ventricle normal size. Right atrium severe enlargement of the right atrium. Tricuspid peak gradient 49. Review of Systems Review of Systems: All systems reviewed & are unremarkable except as noted in HPI and below Constitutional: Constitutional: Reports no additional constitutional complaints Eyes: Eyes: Reports no additional eye complaints ENT: Reports system reviewed and no additional complaints, except as documented Cardiovascular: Cardiovascular: Reports no additional cardiovascular complaints Respiratory: Respiratory: Reports no additional respiratory complaints Gastrointestinal: Gastrointestinal: Reports no additional gastrointestinal complaints Musculoskeletal: Musculoskeletal: Reports no additional musculoskeletal complaints Neurologic: Reports system reviewed and no additional complaints, except as documented Psychiatric: Psychiatric: Reports no additional psychiatric complaints Endocrine: Endocrine: Reports no additional endocrine complaints Hematologic/Lymphatic: Hematologic/Lymphatic: Reports no additional hematologic/lymphatic complaints Allergic/Immunologic: Allergic/Immunologic: Reports no additional allergic/immunologic complaints Exam Const: General: cooperative, healthy appearing and comfortable Orientation/consciousness: oriented to person, oriented to place and oriented to time HENMT: Head: normal to inspection Ears: hearing grossly normal bilaterally Eyes: General: appearance normal, both eyes and all related structures Neck: Neck: normal visual inspection Chest: Chest palpation & inspection: normal inspection of the chest Resp: Effort & Inspection: normal respiratory effort and able to speak in complete sentences Auscultation: crackles, no rales, no rhonchi, no wheezes and lung sounds not diminished Other: crackles at bases Cardio: Jugular venous distension: no JVD GI: Inspection: normal to inspection Skin: General skin exam: normal color Neuro: General: oriented to person, oriented to place and oriented to time Extrem: General: normal to inspection Psych: Appearance: grossly normal Objective Data Vital Signs Vital Signs: Vital Signs - 24 hr 08/11/24 11:35 08/11/24 12:00 08/11/24 13:42 Temperature 37.2 C Pulse Rate 68 60 Respiratory Rate 16 Blood Pressure 134/40 L Pulse Oximetry 96 97 Oxygen Delivery Room Air 08/11/24 14:00 08/11/24 14:37 08/11/24 14:48 Temperature 37.3 C Pulse Rate 61 64 67 Respiratory Rate 18 Blood Pressure 153/67 H 153/61 H Pulse Oximetry Oxygen Delivery 08/11/24 15:00 08/11/24 15:15 08/11/24 15:30 Temperature Pulse Rate 63 64 71 Respiratory Rate Blood Pressure 154/59 H 178/64 H 165/65 H Pulse Oximetry Oxygen Delivery 08/11/24 15:45 08/11/24 16:00 08/11/24 16:00 Temperature Pulse Rate 67 69 63 Respiratory Rate Blood Pressure 161/60 H 158/61 H Pulse Oximetry Oxygen Delivery 08/11/24 16:15 08/11/24 16:30 08/11/24 16:45 Temperature Pulse Rate 69 60 102 H Respiratory Rate Blood Pressure 107/64 172/55 H 161/68 H Pulse Oximetry Oxygen Delivery 08/11/24 17:00 08/11/24 17:15 08/11/24 17:30 Temperature Pulse Rate 67 60 70 Respiratory Rate Blood Pressure 158/57 H 157/60 H 152/66 H Pulse Oximetry Oxygen Delivery 08/11/24 17:45 08/11/24 18:00 08/11/24 18:00 Temperature Pulse Rate 67 69 76 Respiratory Rate Blood Pressure 164/62 H 163/66 H Pulse Oximetry Oxygen Delivery 08/11/24 18:15 08/11/24 18:20 08/11/24 18:38 Temperature 37.2 C Pulse Rate 77 79 68 Respiratory Rate 18 Blood Pressure 107/66 128/75 168/61 H Pulse Oximetry Oxygen Delivery 08/11/24 20:00 08/11/24 20:00 08/11/24 20:15 Temperature Pulse Rate 71 77 Respiratory Rate Blood Pressure Pulse Oximetry Oxygen Delivery Room Air 08/11/24 20:29 08/11/24 21:01 08/11/24 21:02 Temperature 37.1 C Pulse Rate 77 72 Respiratory Rate 18 16 Blood Pressure 104/41 L Pulse Oximetry 96 95 Oxygen Delivery Room Air 08/11/24 22:00 08/11/24 22:40 08/11/24 23:54 Temperature 37.0 C Pulse Rate 73 63 Respiratory Rate 18 Blood Pressure 122/37 L Pulse Oximetry 95 95 Oxygen Delivery Room Air 08/12/24 00:00 08/12/24 00:00 08/12/24 02:00 Temperature Pulse Rate 58 L 63 Respiratory Rate Blood Pressure Pulse Oximetry Oxygen Delivery Room Air 08/12/24 04:00 08/12/24 04:00 08/12/24 04:21 Temperature 37.0 C Pulse Rate 73 65 Respiratory Rate 18 Blood Pressure 136/35 L Pulse Oximetry 95 Oxygen Delivery Room Air 08/12/24 06:00 08/12/24 07:22 08/12/24 07:32 Temperature Pulse Rate 66 69 65 Respiratory Rate 16 16 Blood Pressure Pulse Oximetry Oxygen Delivery 08/12/24 07:42 08/12/24 08:42 Temperature 37.2 C Pulse Rate 63 76 Respiratory Rate 20 Blood Pressure 130/48 L Pulse Oximetry 99 Oxygen Delivery Intake/Output Intake/Output: Intake & Output 08/09/24 08/10/24 08/11/24 08/12/24 23:59 23:59 23:59 23:59 Intake Total 250 615 385 120 Output Total 0 3000 2000 1 Balance 271 -4254 -4032 119 Meds/Results Medications: Active Medications Generic Name Dose Route Start Last Admin Trade Name Freq PRN Reason Stop Dose Admin Acetaminophen 325 mg 08/10/24 00:39 08/10/24 23:50 Acetaminophen 325 Mg Tablet BY MOUTH 325 mg Q4H PRN Administration Pain 1-3 Albuterol/Ipratropium 3 ml 07/30/24 18:22 08/03/24 15:52 Ipratropium 0.5 Mg/Albuterol Sulfate 2.5 Mg Ampul.Neb 3 Ml INHALATION 3 ml Q6HRT PRN Administration Shortness Of Breath Or Wheezing Albuterol/Ipratropium 3 ml 08/09/24 20:00 08/12/24 07:21 Ipratropium 0.5 Mg/Albuterol Sulfate 2.5 Mg Ampul.Neb 3 Ml INHALATION 3 ml Q6HRT THERESE Administration Benzocaine 1 lozenge 07/30/24 18:22 07/30/24 21:28 Benzocaine/Menthol (*Bkc) 18 Ea Lozenge PO 1 lozenge PRN PRN Administration Sore Throat Benzonatate 100 mg 07/30/24 18:22 07/30/24 21:27 Benzonatate 100 Mg Capsule PO 100 mg TID PRN Administration Cough Calcium Carbonate 600 mg 08/01/24 17:30 08/12/24 08:41 Calcium Carbonate (Tums) 500 Mg (200 Mg Elemental) PO 600 mg TID THERESE Administration Carvedilol 3.125 mg 08/02/24 21:00 08/12/24 08:42 Carvedilol 3.125 Mg Tablet PO 3.125 mg Q12HR THERESE Administration Cyanocobalamin 500 mcg 07/31/24 09:00 08/12/24 08:42 Cyanocobalamin 500 Mcg Tablet PO 500 mcg DAILY THERESE Administration Dextrose 12.5 gm 07/30/24 18:29 Dextrose 50% 25 Gm/50 Ml Syringe IV PUSH PRN PRN Hypoglycemia Protocol Dicyclomine HCl 10 mg 07/30/24 21:35 Dicyclomine Hcl 10 Mg Capsule PO BID PRN Abdominal Pain Ergocalciferol 50,000 units 08/02/24 09:00 08/09/24 10:17 Ergocalciferol 50,000 Units Capsule PO 50,000 units WEEKLY THERESE Administration Glucagon 1 mg 07/30/24 18:29 Glucagon For Inj 1 Mg Vial IM PRN PRN Hypoglycemia Protocol Glucose 15 gm 07/30/24 18:29 Glucose Oral Gel 15 Gm Of Glucse In 37.5 Gm Tube PO PRN PRN Hypoglycemia Protocol Guaifenesin 600 mg 08/10/24 21:00 08/12/24 08:41 Guaifenesin 12 Hr 600 Mg Tabcr PO 600 mg Q12HR HTERESE Administration Heparin Sodium (Porcine) 5,000 units 08/03/24 14:00 08/12/24 05:43 Heparin Sodium 5,000 Units/Ml Vial SUB-Q 5,000 units Q8HR THERESE Administration Dextrose 1,000 mls @ 100 mls/hr 07/30/24 18:29 Dextrose 5% 1,000 Ml IVPB PRN PRN Hypoglycemia Protocol Albumin Human 50 mls @ 999 mls/hr 08/01/24 07:00 08/06/24 13:46 Albutein IVPB 08/31/24 06:59 999 mls/hr Q10M PRN Administration HYPOTENSION Insulin Aspart 1 - 2 units 08/01/24 22:20 08/08/24 22:26 Insulin Aspart (*Bkc) 100 Units/Ml SUB-Q 1 units HS THERESE Administration Protocol Insulin Aspart 2 - 5 units 02/02/25 17:50 08/12/24 05:42 Insulin Aspart (*Bkc) 100 Units/Ml SUB-Q 3 units ACHS THERESE Administration Protocol Insulin Glargine 35 units 08/02/24 21:00 08/07/24 23:21 Insulin Glargine (*Bkc) 100 Units/Ml SUB-Q Not Given HS THERESE Levofloxacin 500 mg 08/11/24 16:00 08/11/24 19:01 Levofloxacin 500 Mg Tablet PO 08/12/24 23:59 500 mg Q48H THERESE Administration Metronidazole 500 mg 08/11/24 20:00 08/12/24 05:43 Metronidazole 500 Mg Tablet PO 08/12/24 14:01 500 mg Q8HR THERESE Administration Miconazole Nitrate 1 applic 08/06/24 11:52 Miconazole Nitrate 2% Cream 30 Gm Tube TOPICAL Q12HR PRN maceration * Home Med * 1.8 mg 07/31/24 21:00 Liraglutide [Victoza SUB-Q 08/30/24 20:59 2-Agustín] 0.6 Mg/0.1 HS THERESE Ml (18 Mg/3 Ml) Pen Injector Pantoprazole Sodium 40 mg 07/31/24 09:00 08/12/24 08:42 Pantoprazole 40 Mg Tablet PO 40 mg Q12HR THERESE Administration Perflutren Lipid Microsphere 0 ml 08/10/24 20:01 Perflutren Lipid Microspheres 1.5 Ml Vial Diluted To 10 Ml Total Volume IV PUSH 08/13/24 20:01 ONCE PRN adequate visualization Protocol Sevelamer Carbonate 800 mg 07/31/24 08:00 08/12/24 08:42 Sevelamer Carbonate 800 Mg Tablet PO 800 mg TIDWM THERESE Administration Sitagliptin Phosphate 100 mg 07/31/24 09:00 07/31/24 08:56 Sitagliptin Phosphate 100 Mg Tablet PO 100 mg DAILY THERESE Administration Sodium Chloride 1 spray 08/10/24 19:11 Saline 0.65% Steve Soln 44 Ml Btl NASAL Q4HR PRN Congestion Venlafaxine HCl 37.5 mg 08/03/24 11:50 08/09/24 10:17 Venlafaxine Hcl Xr 37.5 Mg Cap PO Not Given DAILY@0800 [facility] Vitamin B Complex/Folic Acid 1 cap 07/31/24 09:00 08/12/24 08:44 Vitamin B Cmplx/Vit C/Folic Ac 1 Capsule PO 1 cap DAILY THERESE Administration Radiology Results: ITS Impressions Chest CTA 08/06/24 08:36 IMPRESSION: 1. No pulmonary embolism. Sensitivity decreased in the smaller subsegmental pulmonary arteries due to respiratory motion. 2. Right middle and lower lobe with fluid and mucus in the bronchi consistent with pneumonia. 3. Small bilateral pleural effusions. 4. 4.3 cm fusiform ascending thoracic aortic aneurysm. 5. 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 Head CT 08/07/24 12:33 IMPRESSION: 1. Normal aging brain. No acute intracranial process. 2. Fluid/mucus in some of the paranasal sinuses consistent with acute sinusitis. Lumbar Spine CT 08/07/24 12:38 IMPRESSION: 1. Mild lumbar spondylosis. Brain MRI 08/08/24 16:41 IMPRESSION: 1. No acute intracranial process. 2. Moderate scattered calcific white matter T2 hyperintensity which within normal limits for age and consistent with chronic small vessel ischemic disease. 3. Fluid/mucus in some of the paranasal sinuses consistent with acute sinusitis. Chest X-Ray 08/11/24 07:10 Impression: Probable mild bibasilar pulmonary edema with minimal right pleural effusion. Stable cardiomegaly. Possible underlying COPD. Chest CT 08/11/24 14:08 IMPRESSION: 1. Small pleural effusions, right worse than left. 2. Ectasia of ascending aorta measuring 4.4 cm. Labs Labs: Laboratory Results - last 24 hr 08/11/24 08/11/24 08/11/24 11:39 19:02 20:10 Puncture Site ABG pH ABG pCO2 ABG pO2 ABG PO2/FiO2 Ratio ABG HCO3 ABG O2 Saturation ABG O2 Content ABG Base Excess A-a Gradient Oxyhemoglobin Total Hemoglobin O2 Delivery Device O2 Liters/Min FiO2 POC Capillary Glucose 289 H 203 H 220 H NT-Pro-B Natriuret Pep 08/12/24 08/12/24 08/12/24 05:04 05:42 06:34 Puncture Site Left brachial ABG pH 7.383 ABG pCO2 40.9 ABG pO2 60.5 L ABG PO2/FiO2 Ratio 2.88 ABG HCO3 23.8 ABG O2 Saturation 90.9 L ABG O2 Content 13.0 L ABG Base Excess -1.2 A-a Gradient 40.3 Oxyhemoglobin 91.8 Total Hemoglobin 10.0 L O2 Delivery Device Room air O2 Liters/Min Not Reportable FiO2 21 POC Capillary Glucose 266 H NT-Pro-B Natriuret Pep > 34476 H 08/12/24 07:45 Puncture Site ABG pH ABG pCO2 ABG pO2 ABG PO2/FiO2 Ratio ABG HCO3 ABG O2 Saturation ABG O2 Content ABG Base Excess A-a Gradient Oxyhemoglobin Total Hemoglobin O2 Delivery Device O2 Liters/Min FiO2 POC Capillary Glucose 217 H NT-Pro-B Natriuret Pep
[2024-08-12 13:07] LABS: Glucose Point of Care 373 mg/dl (65-105)
[2024-08-12 16:38] LABS: Glucose Point of Care 422 mg/dl (65-105)
--- NOTE | 2024-08-12 17:10 | P.PNIM_ITS ---
Progress Note: A&P Assessment and Plan (1) Acute respiratory failure with hypoxia: Code(s): J96.01 - Acute respiratory failure with hypoxia Status: Acute Assessment and Plan: CT chest reviewed Currently on dialysis MWF BiPAP Continue to wean (2) RSV infection: Qualifiers: RSV infection type: unspecified Qualified Code(s): B33.8 - Other specified viral diseases Code(s): B33.8 - Other specified viral diseases Status: Acute Assessment and Plan: * Respiratory panel positive for RSV * Continue DuoNebs, Tessalon Perles, Mucinex * initial Chest x-ray negative * Reviewed CT and CXR * S/p Prednisone (3) ESRD (end stage renal disease) on dialysis: Code(s): N18.6 - End stage renal disease; Z99.2 - Dependence on renal dialysis Status: Chronic Assessment and Plan: continue dialysis Nephrology following (4) Type 2 diabetes mellitus: Qualifiers: Diabetes mellitus long winder tender insulin use: without custodial use Diabetes mellitus complication status: without complication Qualified Code(s): E11.9 - Type 2 diabetes mellitus without complications Code(s): E11.9 - Type 2 diabetes mellitus without complications Status: Chronic Assessment and Plan: * Blood sugars ranging 139-284 * Hgb A1C 7.1 * Accu checks AC/HS * Low-dose SSI ordered * Hold Lantus 35 units at bedtime * Will hold Victoza and sitagliptin while inpatient * hypoglycemic protocol in place * Diabetic diet ordered * monitor (5) Atrial fibrillation: Qualifiers: Atrial fibrillation type: unspecified Qualified Code(s): I48.91 - Unspecified atrial fibrillation Code(s): I48.91 - Unspecified atrial fibrillation Status: Chronic Assessment and Plan: * EKG showing AFib rate controlled * Not currently on any home medications??? * investigate (6) Anemia: Qualifiers: Anemia type: unspecified type Qualified Code(s): D64.9 - Anemia, unspecified Code(s): D64.9 - Anemia, unspecified Status: Chronic Assessment and Plan: Likely secondary to her end-stage renal disease * Hemoglobin 9.1 (7) Hypertension: Qualifiers: Hypertension type: unspecified Qualified Code(s): I10 - Essential (primary) hypertension Code(s): I10 - Essential (primary) hypertension Status: Chronic Assessment and Plan: * Low blood pressures resolved on Coreg monitor and adjust stable (8) Metabolic encephalopathy: Code(s): G93.41 - Metabolic encephalopathy Status: Acute Assessment and Plan: Currently patient on dialysis Neurology Consulted ABG shows hypercapnia BiPAP settings 06/13 Will consult pulmonology Temporary BiPAP to eliminate CO2 No evidence of receiving anxiolytics or sedatives CT head negative MRI brain reviewed TSH normal, RPR negative, Vitamin B12 normal. Possibly fluid overload vs toxin versus infectious process vs underlying pulmonary disease As per her daughter,recently diagnosed hepatitis B infection Hepatitis B panel shows no acute infection but evidence of exposure Needs to follow-up with GI as outpatient (9) Hepatitis B: Code(s): B19.10 - Unspecified viral hepatitis B without hepatic coma Status: Acute Assessment and Plan: Reviewed Hepatitis B panel (10) Pneumonia: Code(s): J18.9 - Pneumonia, unspecified organism Status: Acute Assessment and Plan: Ct chest no pnuemonia pnuemonia ruled out stopp abx Plan Diabetic neuropathy HOld Venlafaxine monitor DVT prophylaxis on Sq Heparin PT/OT recommends SNF awaiting placement Subjective Date/time seen: 08/12/24 17:10 Interval history: Comfortable at bedside Pt/OT recommends SNF placement Review of Systems Review of Systems: All systems reviewed & are unremarkable except as noted in HPI and below Constitutional: Constitutional: Reports as per HPI and Reports no additional constitutional complaints Eyes: Eyes: Reports as per HPI and Reports no additional eye complaints ENT: Reports system reviewed and no additional complaints, except as documented and Reports as per HPI Cardiovascular: Cardiovascular: Reports as per HPI and Reports no additional cardiovascular complaints Respiratory: Respiratory: Reports as per HPI and Reports no additional respiratory complaints Gastrointestinal: Gastrointestinal: Reports as per HPI and Reports no additional gastrointestinal complaints Genitourinary: Genitourinary: Reports no additional female genitourinary complaints and Reports as per HPI Musculoskeletal: Musculoskeletal: Reports no additional musculoskeletal complaints and Reports as per HPI Integumentary/Breasts: Skin/Breast: Reports system reviewed and no additional complaints, except as docu and Reports as per HPI Neurologic: Reports system reviewed and no additional complaints, except as documented and Reports as per HPI Psychiatric: Psychiatric: Reports no additional psychiatric complaints and Reports as per HPI Exam Narrative: General: In no acute distress Cardiac: Normal S1 and S2. No murmur, gallops or friction rubs, peripheral pulses intact. Respiratory: Rhonchi with mild expiratory wheezing bilaterally---R>L, , on 1L NC Gastrointestinal: soft, non-distended, non-tender, normoactive bowel sounds. :anuric on HD M-W-F Neuro: Alert and oriented x4 Const: General: comfortable and no acute distress Other: Elderly, female, ill-appearing HENMT: Face/Nose/Sinus: Normal nares present Mouth: Yes moist mucous membranes Eyes: General: appearance normal, both eyes and all related structures Sclera: sclerae normal Pupils: Equal, round and reactive pupils present EOM: EOMs intact bilaterally Resp: Other: Bibasilar crackles, + tachypnea without increased work of breathing Cardio: Rate: regular rate Rhythm: regular rhythm Other: S1-S2 present without murmur, rub, ectopy GI: Other: Abdomen soft, nondistended, nontender. Skin: General skin exam: normal color and no rashes or lesions noted Wounds: no wounds Neuro: Cranial nerves: Yes Equal, round and reactive pupils present Speech: normal speech Motor exam (neuro): 5/5 motor strength present throughout Sensory Exam: normal sensation Other: S1-S2 present without murmur, rub, ectopy Extrem: General: normal exam except as noted Other: +thrill and bruit to RUE fistula. old fistula to LUE. Psych: Mental Status: mental status grossly normal Affect: normal affect Other: Good insight and judgment, pleasant Objective Data Vital Signs Vital Signs: Vital Signs - 24 hr 08/11/24 17:15 08/11/24 17:30 08/11/24 17:45 Temperature Pulse Rate 60 70 67 Respiratory Rate Blood Pressure 157/60 H 152/66 H 164/62 H Pulse Oximetry Oxygen Delivery Fraction of Inspired Oxygen 08/11/24 18:00 08/11/24 18:00 08/11/24 18:15 Temperature Pulse Rate 69 76 77 Respiratory Rate Blood Pressure 163/66 H 107/66 Pulse Oximetry Oxygen Delivery Fraction of Inspired Oxygen 08/11/24 18:20 08/11/24 18:38 08/11/24 20:00 Temperature 98.9 F Pulse Rate 79 68 71 Respiratory Rate 18 Blood Pressure 128/75 168/61 H Pulse Oximetry Oxygen Delivery Fraction of Inspired Oxygen 08/11/24 20:00 08/11/24 20:15 08/11/24 20:29 Temperature 98.7 F Pulse Rate 77 77 Respiratory Rate 18 Blood Pressure 104/41 L Pulse Oximetry 96 Oxygen Delivery Room Air Fraction of Inspired Oxygen 08/11/24 21:01 08/11/24 21:02 08/11/24 22:00 Temperature Pulse Rate 72 73 Respiratory Rate 16 Blood Pressure Pulse Oximetry 95 Oxygen Delivery Room Air Fraction of Inspired Oxygen 08/11/24 22:40 08/11/24 23:54 08/12/24 00:00 Temperature 98.6 F Pulse Rate 63 Respiratory Rate 18 Blood Pressure 122/37 L Pulse Oximetry 95 95 Oxygen Delivery Room Air Room Air Fraction of Inspired Oxygen 08/12/24 00:00 08/12/24 02:00 08/12/24 04:00 Temperature Pulse Rate 58 L 63 Respiratory Rate Blood Pressure Pulse Oximetry Oxygen Delivery Room Air Fraction of Inspired Oxygen 08/12/24 04:00 08/12/24 04:21 08/12/24 06:00 Temperature 98.6 F Pulse Rate 73 65 66 Respiratory Rate 18 Blood Pressure 136/35 L Pulse Oximetry 95 Oxygen Delivery Fraction of Inspired Oxygen 08/12/24 07:22 08/12/24 07:32 08/12/24 07:42 Temperature 98.9 F Pulse Rate 69 65 63 Respiratory Rate 16 16 20 Blood Pressure 130/48 L Pulse Oximetry 99 Oxygen Delivery Fraction of Inspired Oxygen 08/12/24 08:00 08/12/24 08:00 08/12/24 08:42 Temperature Pulse Rate 76 78 76 Respiratory Rate 20 Blood Pressure Pulse Oximetry 99 Oxygen Delivery Room Air Fraction of Inspired Oxygen 30 08/12/24 10:00 08/12/24 11:32 08/12/24 12:00 Temperature 99.0 F Pulse Rate 77 71 Respiratory Rate 20 Blood Pressure 139/43 L Pulse Oximetry 100 Oxygen Delivery Room Air Fraction of Inspired Oxygen 08/12/24 12:00 08/12/24 13:16 08/12/24 13:36 Temperature Pulse Rate 68 64 63 Respiratory Rate 16 16 Blood Pressure Pulse Oximetry Oxygen Delivery Fraction of Inspired Oxygen 08/12/24 13:59 08/12/24 15:48 Temperature 98.6 F Pulse Rate 81 62 Respiratory Rate 22 H Blood Pressure 138/43 L Pulse Oximetry 98 Oxygen Delivery Fraction of Inspired Oxygen Intake/Output Intake/Output: Intake & Output 08/09/24 08/10/24 08/11/24 08/12/24 23:59 23:59 23:59 23:59 Intake Total 250 615 385 240 Output Total 0 3000 2000 1 Balance 970 -7562 -6090 239 Meds/Results Medications: Active Medications Generic Name Dose Route Start Last Admin Trade Name Emily PRN Reason Stop Dose Admin Acetaminophen 325 mg 08/10/24 00:39 08/10/24 23:50 Acetaminophen 325 Mg Tablet BY MOUTH 325 mg Q4H PRN Administration Pain 1-3 Albuterol/Ipratropium 3 ml 08/09/24 20:00 08/12/24 13:16 Ipratropium 0.5 Mg/Albuterol Sulfate 2.5 Mg Ampul.Neb 3 Ml INHALATION 3 ml Q6HRT THERESE Administration Benzocaine 1 lozenge 07/30/24 18:22 07/30/24 21:28 Benzocaine/Menthol (*Bkc) 18 Ea Lozenge PO 1 lozenge PRN PRN Administration Sore Throat Benzonatate 100 mg 07/30/24 18:22 07/30/24 21:27 Benzonatate 100 Mg Capsule PO 100 mg TID PRN Administration Cough Calcium Carbonate 600 mg 08/01/24 17:30 08/12/24 12:49 Calcium Carbonate (Tums) 500 Mg (200 Mg Elemental) PO 600 mg TID THERESE Administration Carvedilol 3.125 mg 08/02/24 21:00 08/12/24 08:42 Carvedilol 3.125 Mg Tablet PO 3.125 mg Q12HR THERESE Administration Cyanocobalamin 500 mcg 07/31/24 09:00 08/12/24 08:42 Cyanocobalamin 500 Mcg Tablet PO 500 mcg DAILY THERESE Administration Dextrose 12.5 gm 07/30/24 18:29 Dextrose 50% 25 Gm/50 Ml Syringe IV PUSH PRN PRN Hypoglycemia Protocol Dicyclomine HCl 10 mg 07/30/24 21:35 Dicyclomine Hcl 10 Mg Capsule PO BID PRN Abdominal Pain Ergocalciferol 50,000 units 08/02/24 09:00 08/09/24 10:17 Ergocalciferol 50,000 Units Capsule PO 50,000 units WEEKLY THERESE Administration Glucagon 1 mg 07/30/24 18:29 Glucagon For Inj 1 Mg Vial IM PRN PRN Hypoglycemia Protocol Glucose 15 gm 07/30/24 18:29 Glucose Oral Gel 15 Gm Of Glucse In 37.5 Gm Tube PO PRN PRN Hypoglycemia Protocol Guaifenesin 600 mg 08/12/24 10:52 Guaifenesin 12 Hr 600 Mg Tabcr PO Q12HR PRN Cough Heparin Sodium (Porcine) 5,000 units 08/03/24 14:00 08/12/24 05:43 Heparin Sodium 5,000 Units/Ml Vial SUB-Q 5,000 units Q8HR THERESE Administration Dextrose 1,000 mls @ 100 mls/hr 07/30/24 18:29 Dextrose 5% 1,000 Ml IVPB PRN PRN Hypoglycemia Protocol Albumin Human 50 mls @ 999 mls/hr 08/01/24 07:00 08/06/24 13:46 Albutein IVPB 08/31/24 06:59 999 mls/hr Q10M PRN Administration HYPOTENSION Insulin Aspart 1 - 2 units 08/01/24 22:20 08/08/24 22:26 Insulin Aspart (*Bkc) 100 Units/Ml SUB-Q 1 units HS THERESE Administration Protocol Insulin Aspart 2 - 5 units 08/10/24 17:50 08/12/24 12:49 Insulin Aspart (*Bkc) 100 Units/Ml SUB-Q 5 units ACHS THERESE Administration Protocol Insulin Glargine 35 units 08/02/24 21:00 08/07/24 23:21 Insulin Glargine (*Bkc) 100 Units/Ml SUB-Q Not Given HS THERESE Miconazole Nitrate 1 applic 08/06/24 11:52 Miconazole Nitrate 2% Cream 30 Gm Tube TOPICAL Q12HR PRN maceration * Home Med * 1.8 mg 07/31/24 21:00 Liraglutide [Victoza SUB-Q 08/30/24 20:59 2-Agustín] 0.6 Mg/0.1 HS THERESE Ml (18 Mg/3 Ml) Pen Injector Pantoprazole Sodium 40 mg 07/31/24 09:00 08/12/24 08:42 Pantoprazole 40 Mg Tablet PO 40 mg Q12HR THERESE Administration Perflutren Lipid Microsphere 0 ml 08/10/24 20:01 Perflutren Lipid Microspheres 1.5 Ml Vial Diluted To 10 Ml Total Volume IV PUSH 08/13/24 20:01 ONCE PRN adequate visualization Protocol Sevelamer Carbonate 800 mg 07/31/24 08:00 08/12/24 12:47 Sevelamer Carbonate 800 Mg Tablet PO 800 mg TIDWM THERESE Administration Sitagliptin Phosphate 100 mg 07/31/24 09:00 07/31/24 08:56 Sitagliptin Phosphate 100 Mg Tablet PO 100 mg DAILY THERESE Administration Sodium Chloride 1 spray 08/10/24 19:11 Saline 0.65% Steve Soln 44 Ml Btl NASAL Q4HR PRN Congestion Venlafaxine HCl 37.5 mg 08/03/24 11:50 08/09/24 10:17 Venlafaxine Hcl Xr 37.5 Mg Cap PO Not Given DAILY@0800 THERESE Vitamin B Complex/Folic Acid 1 cap 07/31/24 09:00 08/12/24 08:44 Vitamin B Cmplx/Vit C/Folic Ac 1 Capsule PO 1 cap DAILY THERESE Administration Radiology Results: ITS Impressions Chest CTA 08/06/24 08:36 IMPRESSION: 1. No pulmonary embolism. Sensitivity decreased in the smaller subsegmental pulmonary arteries due to respiratory motion. 2. Right middle and lower lobe with fluid and mucus in the bronchi consistent with pneumonia. 3. Small bilateral pleural effusions. 4. 4.3 cm fusiform ascending thoracic aortic aneurysm. 5. 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 Head CT 08/07/24 12:33 IMPRESSION: 1. Normal aging brain. No acute intracranial process. 2. Fluid/mucus in some of the paranasal sinuses consistent with acute sinusitis. Lumbar Spine CT 08/07/24 12:38 IMPRESSION: 1. Mild lumbar spondylosis. Brain MRI 08/08/24 16:41 IMPRESSION: 1. No acute intracranial process. 2. Moderate scattered calcific white matter T2 hyperintensity which within normal limits for age and consistent with chronic small vessel ischemic disease. 3. Fluid/mucus in some of the paranasal sinuses consistent with acute sinusitis. Chest X-Ray 08/11/24 07:10 Impression: Probable mild bibasilar pulmonary edema with minimal right pleural effusion. Stable cardiomegaly. Possible underlying COPD. Chest CT 08/11/24 14:08 IMPRESSION: 1. Small pleural effusions, right worse than left. 2. Ectasia of ascending aorta measuring 4.4 cm. Labs Labs: Laboratory Results - last 24 hr 08/11/24 08/11/2425 19:02 20:10 05:04 Puncture Site Left brachial ABG pH 7.383 ABG pCO2 40.9 ABG pO2 60.5 L ABG PO2/FiO2 Ratio 2.88 ABG HCO3 23.8 ABG O2 Saturation 90.9 L ABG O2 Content 13.0 L ABG Base Excess -1.2 A-a Gradient 40.3 Oxyhemoglobin 91.8 Total Hemoglobin 10.0 L O2 Delivery Device Room air O2 Liters/Min Not Reportable FiO2 21 POC Capillary Glucose 203 H 220 H NT-Pro-B Natriuret Pep 08/12/24 08/12/24 08/12/24 05:42 06:34 07:45 Puncture Site ABG pH ABG pCO2 ABG pO2 ABG PO2/FiO2 Ratio ABG HCO3 ABG O2 Saturation ABG O2 Content ABG Base Excess A-a Gradient Oxyhemoglobin Total Hemoglobin O2 Delivery Device O2 Liters/Min FiO2 POC Capillary Glucose 266 H 217 H NT-Pro-B Natriuret Pep > [id number] H 08/12/24 08/12/24 11:36 16:29 Puncture Site ABG pH ABG pCO2 ABG pO2 ABG PO2/FiO2 Ratio ABG HCO3 ABG O2 Saturation ABG O2 Content ABG Base Excess A-a Gradient Oxyhemoglobin Total Hemoglobin O2 Delivery Device O2 Liters/Min FiO2 POC Capillary Glucose 373 H 422 H NT-Pro-B Natriuret Pep Quality VTE Prophylaxis VTE prophylaxis: mechanical ordered
[2024-08-12 20:52] LABS: Glucose Point of Care 352 mg/dl (65-105)
[2024-08-13] VITALS (34 sets, daily range): BP systolic 88–154; BP diastolic 34–99; PULSE 57–79; RESP 16–24; TEMP 36.4–37.2; O2SAT 97–100
[2024-08-13] MEDS: HEPARIN SODIUM 5,000 UNITS/ML VIAL 5000 UNITS SUB-Q ×3 (05:41→21:03)
[2024-08-13] MEDS: INSULIN ASPART (*BKC) 100 UNITS/ML SUB-Q ×3 (05:42→20:56)
[2024-08-13 05:48] LABS: Glucose Point of Care 244 mg/dl (65-105)
[2024-08-13] MEDS: IPRATROPIUM 0.5 MG/ALBUTEROL SULFATE 2.5 MG AMPUL.NEB 3 ML INHALATION ×2 (07:32→20:18)
[2024-08-13 08:12] LABS: Glucose Point of Care 195 mg/dl (65-105)
[2024-08-13] MEDS: SEVELAMER CARBONATE 800 MG TABLET PO ×2 (08:40→17:49)
[2024-08-13] MEDS: CYANOCOBALAMIN 500 MCG TABLET PO (08:40)
[2024-08-13] MEDS: PANTOPRAZOLE 40 MG TABLET PO ×2 (08:40→20:55)
[2024-08-13] MEDS: VITAMIN B CMPLX/VIT C/FOLIC AC 1 CAPSULE 1 CAP PO (08:40)
[2024-08-13] MEDS: CALCIUM CARBONATE (TUMS) 500 MG (200 MG ELEMENTAL) 600 MG PO ×2 (08:40→17:44)
[2024-08-13 09:31] LABS: Eosinophils Percent Auto 0.5 % (0-4.4); Hematocrit 30.8 % (37.0-47.0); Hemoglobin 9.5 g/dL (12.0-15.0); Immature Granulocyte Absolute 0.03 K/mm3 (0.00-0.031); Immature Granulocyte Percent A 0.5 % (0-0.5); Immature Platelet Fraction Pct 4.3 % (0.9-11.2); Lymphocytes Absolute Auto 0.83 K/mm3 (0.9-3.2); Lymphocytes Percent Auto 12.5 % (18.3-44.2); Mean Corpuscular HGB Conc 30.8 g/dl (32-36); Mean Corpuscular Hemoglobin 32.3 pg (26-34); Mean Corpuscular Volume 104.8 fl (80-100); Mean Platelet Volume 11.3 fl (7.4-10.4); Monocytes Absolute Auto 0.5 K/mm3 (0.1-0.6); Monocytes Percent Auto 6.8 % (2.6-8.5); Neutrophils Absolute Auto 5.3 K/mm3 (1.3-6.7); Neutrophils Percent Auto 79.7 % (45.5-73.1); Platelet Count Result 100 k/mm3 (150-375); Red Blood Count 2.94 M/mm3 (4.2-5.4); White Blood Count 6.6 K/mm3 (4.5-10.0)
[2024-08-13 09:40] LABS: Albumin Level 3.4 g/dL (3.5-5.1); Anion Gap 10 mmol/L (4-12); Blood Urea Nitrogen 44 mg/dL (7-17); Calcium 8.1 mg/dL (8.4-10.2); Carbon Dioxide 23 mmol/L (22-30); Chloride 101 mmol/L (98-107); Estimated Glomerular Filt Rate 10; Glucose 290 mg/dL (65-110); Sodium 134 mmol/L (137-145)
--- NOTE | 2024-08-13 10:35 | P.CONNEU_ITS ---
Assessment and Plan Assessment and plan (1) Acute respiratory failure with hypoxia and hypercapnia: Code(s): J96.01 - Acute respiratory failure with hypoxia; J96.02 - Acute respiratory failure with hypercapnia Status: Acute (2) Metabolic encephalopathy: Code(s): G93.41 - Metabolic encephalopathy Status: Acute (3) Hypoxia: Code(s): R09.02 - Hypoxemia Status: Acute (4) Megaloblastic anemia: Code(s): D53.1 - Other megaloblastic anemias, not elsewhere classified Status: Acute (5) Anemia of chronic disease: Code(s): D63.8 - Anemia in other chronic diseases classified elsewhere Status: Acute (6) Neuropathy: Code(s): G62.9 - Polyneuropathy, unspecified Status: Acute Plan 1. Generalized weakness related to multiple medical problems 2. early memory dysfunction Could be related to multiple medical problems or multifactorial mild dementia. MRI is not indicated of any focal his structural lesion though suggestive of chronic small vessel ischemic disease. 3. Underlying multifactorial neuropathy with gait dysfunction. 4. Anemia with MCV of 104.8 though it has been up to 110.3 along with the platelet count of [id number], raising the possibility of the B12 deficiency but patient is being already on B12 supplement. If any further question arises please do not hesitate to contact me. Consult date: 08/13/24 HPI: Shasta Obando is a 79 year old female Admitted to the hospital through the emergency room for the complaints of worsening difficulties in breathing. Patient is known to have 1. Diabetes mellitus 2. End-stage renal disease for which she is on dialysis on Wednesdays and Fridays. Reportedly patient went to dialysis on Sunday and Sunday and the day of admission but she became hypoxic while at the dialysis center and became excessively fatigued without any other associated symptomatology. Patient has been taking multiple medications including carvedilol 12.5mg daily, atorvastatin 40mg daily, and also she is known to be allergic to multiple medications as outlined. She has ongoing history of 1. Peripheral arterial disease with midfoot amputation. 2. Spinal stenosis of high grade level at L4 and 5 levels. 3. Pulmonary hypertension 4. Thoracic ascending aortic aneurysm of 4.4cm size documented in 2019 5. Paroxysmal atrial fibrillation 6. Type 2 diabetes mellitus 7. AV fistula in the left upper extremity with end-stage renal disease for which she is on dialysis as mentioned above 8. Never a smoker and former alcohol intaker . On initial evaluation her vital signs were normal, CBC was normal, though her platelet count were only 112, routine lab studies were with estimated GFR of 24, glucose of 183, and negative for influenza a and B and SARs COVID but positive for RSV. Chest x-ray revealed mild pulmonary edema with cardiomegaly. On the floor she has been followed by the computer systems software engineer, as well as by the transmitter tester neurology consultation has been obtained to evaluate the neurological status. Her echocardiogram has revealed severely enlarged left atrial chamber and right atrial chamber with moderate aortic valve sclerosis moderately calcified mitral valve annulus with mild regurgitation and also moderate pulmonary hypertension. Nephrologic Locke she is at this time stable Review of Systems 2 Review of Systems: All systems reviewed & are unremarkable except as noted in HPI and below PMFSH Past Medical History Medical History GERD (gastroesophageal reflux disease) Colon polyps History of gastric ulcer IBS (irritable bowel syndrome) Tubular adenoma of colon Peripheral arterial disease History mid foot amputation. Spinal stenosis at L4-L5 level High-grade central canal stenosis noted on MRI February 2017 Pulmonary hypertension Echocardiogram August 2019: EF 65-70 %, indeterminate left ventricular diastolic function, mild biatrial enlargement, mild mitral valve regurgitation, moderate tricuspid regurgitation, mild pulmonary hypertension with RVSP of 39 Hiatal hernia Thoracic ascending aortic aneurysm 4.[address] scan from August 2019 Anemia of chronic disease Megaloblastic anemia Paroxysmal atrial fibrillation Type 2 diabetes mellitus Hemoglobin A1c was 6.6 in July 2019. Hypertension Osteoporosis Hyperlipidemia AV fistula Left upper extremity End stage renal disease on dialysis Dialysis days are Sunday, Sunday, and Sunday. She is on the transplant list at [facility]. Osteoarthritis of both knees Staphylococcal septicemia (~2013) Closed fracture of lateral portion of right tibial plateau (~2014) Surgical History Surgical History Amputated toe of left foot History of bilateral cataract extraction Amputation at midfoot 5th digit right footAnd the great toe on the left History of arthroplasty of right ankle Presence of Watchman left atrial appendage closure device History of arthroscopy (~12/07/12) wrist History of colonoscopy (~12/02/15) History of knee replacement (~2016) right Family History Family History Father Hypertension Heart disease Mother Diabetes mellitus Hypertension Tobacco dependence Lung cancer Sibling Heart disease Social History Social History Social History: The patient is and lives in [place]. She is originally from [place]. 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 She has 2 daughters who live in [place]. She has 1 son who lives in [facility] . She designates her daughters as her surrogate decision makers. She is a lifelong nonsmoker. No alcohol or drug abuse. Primary care physician: Dr. David Coppola Code status: Full code Smoking status: Never smoker Second hand tobacco smoke exposure: No Alcohol intake: former Substance use: never Substance use type: does not use Do You Feel Safe in your Home?: Yes Lack of Transportation: No Lack of Food: Never True Current Housing: I Do Not Have Housing Concerned About Future Housing: No Difficulty Paying Gas/Electric Bills: No Difficulty Paying for Meds: No Currently Unemployed: No Education: High School Diploma/GED Difficulty w/ Childcare or Family Care: No Gender identity (if verbalized by the patient): Female Spiritual care concerns: No Agree to blood products: Yes Meds Home Medications and Allergies Home Medications ?Medication ?Instructions ?Recorded ?Confirmed ?Type cyanocobalamin (vitamin B-12) 500 500 mcg PO DAILY 06/12/19 07/30/24 History mcg tablet acetaminophen 500 mg tablet See Rx Instructions PO Q4H PRN Pain 02/20/20 07/30/24 History (Acetaminophen Extra Strength) sevelamer HCl 800 mg tablet 800 mg PO TID 03/29/20 07/30/24 History blood sugar diagnostic #500 ea 07/18/21 07/30/24 Rx atorvastatin 40 mg tablet 40 mg PO DAILY 10/25/21 07/30/24 History calcium carbonate (Tums) 1,500 mg PO TID 10/25/21 07/30/24 History vitamin B complex and vitamin C 1 cap PO DAILY 10/25/21 07/30/24 History no.20-folic acid 1 mg capsule (Renal Caps) carvedilol 12.5 mg tablet (Coreg) 3.125 mg PO BID 05/11/22 07/30/24 History foldiing walker #1 ea 01/11/23 07/30/24 Rx blood sugar diagnostic #500 ea 05/14/23 07/30/24 Rx pen needle, diabetic 32 gauge x #100 ea 05/14/23 07/30/24 Rx 1/5 denosumab 60 mg/mL subcutaneous 60 mg subcut O3ABUPIL #1 mL 06/01/23 07/30/24 Rx syringe (Prolia) liraglutide 0.6 mg/0.1 mL (18 mg/3 1.2 mg subcut HS 06/06/23 07/30/24 History mL) subcutaneous pen injector (Victoza 2-Agustín) insulin degludec 100 unit/mL (3 10 unit (0.1 mL) subcut HS #15 mL 06/25/23 07/30/24 Rx mL) subcutaneous pen (Tresiba FlexTouch U-100 insulin) Assited gait device #1 ea 08/23/23 07/30/24 Rx clotrimazole 1 % topical cream 1 applic topical Q12H 09/27/23 07/30/24 History (Antifungal (clotrimazole)) lidocaine-prilocaine 2.5 %-2.5 % 1 applic topical ONCE 09/27/23 07/30/24 History topical cream dicyclomine 10 mg capsule See Rx Instructions .Route 02/12/24 07/30/24 Rx .COMPLEX #60 caps pantoprazole 40 mg tablet,delayed 40 mg PO Q12HR #60 tabs 06/16/24 07/30/24 Rx release ergocalciferol (vitamin D2) 1,250 See Rx Instructions .Route 06/26/24 07/30/24 Rx mcg (50,000 unit) capsule .COMPLEX #13 caps trazodone 50 mg tablet 100 mg (2 x 50 mg) PO QHS #180 tabs 06/26/24 07/30/24 Rx amoxicillin 500 mg capsule 500 mg PO Q8H #21 caps 07/28/24 07/30/24 Rx sitagliptin phosphate 100 mg 100 mg PO DAILY #90 tabs 08/13/24 Rx tablet (Januvia) Allergies Allergy/AdvReac Type Severity Reaction Status Date / Time cephalexin Allergy Mild Rash Verified 07/30/24 14:57 enalapril Allergy Unknown cough Verified 07/30/24 14:57 pioglitazone Allergy Unknown Unknown Verified 07/30/24 14:57 cefazolin AdvReac Mild nausea/dizz Verified 07/30/24 14:57 iness tramadol AdvReac Unknown hallucinati Verified 08/12/24 10:54 ons gabapentin AdvReac Hallucinati Verified 08/12/24 10:54 ng Vital Signs Vital Signs - 24 hr 08/12/24 11:32 08/12/24 12:00 08/12/24 12:00 Temperature 37.2 C Pulse Rate 71 68 Respiratory Rate 20 Blood Pressure 139/43 L Pulse Oximetry 100 Oxygen Delivery Room Air 08/12/24 13:16 08/12/24 13:36 08/12/24 13:59 Temperature Pulse Rate 64 63 81 Respiratory Rate 16 16 Blood Pressure Pulse Oximetry Oxygen Delivery 08/12/24 15:48 08/12/24 16:00 08/12/24 16:00 Temperature 37.0 C Pulse Rate 62 62 Respiratory Rate 22 H Blood Pressure 138/43 L Pulse Oximetry 98 Oxygen Delivery Room Air 08/12/24 18:00 08/12/24 20:00 08/12/24 20:00 Temperature Pulse Rate 72 62 Respiratory Rate Blood Pressure Pulse Oximetry Oxygen Delivery Room Air 08/12/24 20:15 08/12/24 20:18 08/12/24 20:25 Temperature 36.8 C Pulse Rate 64 63 61 Respiratory Rate 16 22 H 16 Blood Pressure 120/48 L Pulse Oximetry 90 Oxygen Delivery 08/12/24 20:39 08/12/24 20:57 08/12/24 22:00 Temperature Pulse Rate 70 66 Respiratory Rate Blood Pressure Pulse Oximetry 96 Oxygen Delivery Room Air 08/13/24 00:00 08/13/24 00:00 08/13/24 00:28 Temperature 36.6 C Pulse Rate 61 79 Respiratory Rate 16 Blood Pressure 139/40 L Pulse Oximetry 100 Oxygen Delivery Room Air 08/13/24 02:00 08/13/24 04:00 08/13/24 04:00 Temperature Pulse Rate 69 70 Respiratory Rate Blood Pressure Pulse Oximetry Oxygen Delivery Room Air 08/13/24 04:40 08/13/24 06:00 08/13/24 07:32 Temperature 36.4 C Pulse Rate 68 78 Respiratory Rate 16 Blood Pressure 126/42 L Pulse Oximetry 100 100 Oxygen Delivery Room Air 08/13/24 07:32 08/13/24 08:00 Temperature 37.2 C Pulse Rate 66 64 Respiratory Rate 16 24 H Blood Pressure 133/40 L Pulse Oximetry 100 Oxygen Delivery Exam 2 Narrative: reveals her to be awake alert ,head normocephalic with no bruit, ear nose throat examination normal, neck supple with no cervical bruit, heart regular, lungs clear, abdomen is soft nontender, neurologically she is awake alert cooperative with normal speech without evidence of dysarthria or dysphasia, pupils round regular, feels the vision are full to finger confrontation in all 4 quadrants, extraocular movements are full horizontally and vertically with no evidence of nystagmus, facial sensation is intact, face symmetrical, tongue in the oral cavity with no fasciculation, uvula in the midline, motor examination revealed her to have decreased strength generally without evidence of any abnormal movements or fasciculation. She has difficulties in performing [id number]-finger and heel to knee to pederson cause of the general decrease in the strength but there is no tremors. Results Labs 08/13/24 09:17 08/13/24 09:17 Labs: Short CBC 08/13/24 Range/Units 09:17 WBC 6.6 (4.5-10.0) K/mm3 Hgb 9.5 L (12.0-15.0) g/dL Hct 30.8 L (37.0-47.0) % Plt Count 100 L (150-375) k/mm3 BMP 08/13/24 09:17 Sodium 134 L Potassium 4.0 Chloride 101 Carbon Dioxide 23 BUN 44 H Creatinine 4.48 H Glucose 290 H Calcium 8.1 L Liver Function 08/13/24 Range/Units 09:17 Albumin 3.4 L (3.5-5.1) g/dL
[2024-08-13] MEDS: EPOETIN ALFA-EPBX 10,000 UNITS/ML VIAL 10000 UNITS IV PUSH (11:21)
[2024-08-13] MEDS: ALBUMIN HUMAN 25% 12.5 GM/50ML 50 ML 100 GM (11:23)
--- NOTE | 2024-08-13 11:32 | PCOTNOTE ---
The patient treatment was not able to be completed Out of Room for HD. Will plan to continue treatment per plan of care.
--- NOTE | 2024-08-13 12:21 | PM.PNNEP ---
Progress Note: A&P Assessment and Plan (1) End stage renal disease: Code(s): N18.6 - End stage renal disease Status: Chronic Assessment and Plan: HD today continue M/W/F dialysis schedule while hospitalized follow electrolytes, volume status, and clearance (2) Altered mental status: Code(s): R41.82 - Altered mental status, unspecified Status: Acute Assessment and Plan: significant improvement evaluation to date noted: CT of head negative off all sedating medication MRI of brain unremarkable TSH/RPR/Vitamin B12 okay blood gas done on 08/09 with evidence of CO2 retention (though to be secondary to fluid overload) empiric antibiotics follow mentation (3) Hypoxia: Code(s): R09.02 - Hypoxemia Status: Acute Assessment and Plan: resolved - on room air as noted by EMS on admission 80% oxygen saturations on room air improved with 2L oxygen by nasal cannula presumably due to mild pulmonary edema and RSV (as noted on admission) s/p DUF with 3L fluid on 08/10 and 2L with HD on 08/11 continue supportive therapy (4) RSV infection: Qualifiers: RSV infection type: unspecified Qualified Code(s): B33.8 - Other specified viral diseases Code(s): B33.8 - Other specified viral diseases Status: Acute Assessment and Plan: tested positive for RSV on 07/30 in ER reported onset of symptoms on 07/28 continues supportive care: Mucinex Tessalon Perles p.r.n. DuoNeb as needed Tylenol (5) Atrial fibrillation: Qualifiers: Atrial fibrillation type: unspecified Qualified Code(s): I48.91 - Unspecified atrial fibrillation Code(s): I48.91 - Unspecified atrial fibrillation Status: Chronic Assessment and Plan: paroxysmal rate controlled not on anticoagulation (due to hx of GI bleeding versus fall risk?) (6) Anemia: Qualifiers: Anemia type: unspecified type Qualified Code(s): D64.9 - Anemia, unspecified Code(s): D64.9 - Anemia, unspecified Status: Chronic Assessment and Plan: related to ESRD Epogen with HD follow trend of H/H (7) Hypertension: Qualifiers: Hypertension type: unspecified Qualified Code(s): I10 - Essential (primary) hypertension Code(s): I10 - Essential (primary) hypertension Status: Chronic Assessment and Plan: reasonable control follow hemodynamics (8) Type 2 diabetes mellitus: Qualifiers: Diabetes mellitus fdc insulin use: without middle or intermediate school principal use Diabetes mellitus complication status: without complication Qualified Code(s): E11.9 - Type 2 diabetes mellitus without complications Code(s): E11.9 - Type 2 diabetes mellitus without complications Status: Chronic Assessment and Plan: follow accuchecks glycemic control per hospitalists Will continue to follow. Subjective Date/time seen: 08/13/24 12:21 Interval history: Follow-up for end stage renal disease on hemodialysis. Tolerating dialysis treatment at the time of my visit (seen on HD at 12:10PM); remains oon room air with adequate oxygen saturations; fluid removal limited by relative hypotension during treatment today; no other acute complaints voiced when seen; no events overnight or earlier this morning. Exam Narrative: General: elderly female in NAD Heart: normal S1 and S2; no rub Lungs: clear anteriorly; decreased at bases Abdomen: soft, nontender, nondistended, positive bowel sounds Extremities: no cyanosis or clubbing; no edema Skin: no rash Objective Data Vital Signs Vital Signs: Vital Signs Temp Pulse Resp BP Pulse Ox O2 Del Method 08/13/24 12:00 98.5 F 74 18 147/47 H 97 08/13/24 10:00 64 08/13/24 09:35 98.4 F 69 18 122/54 L 08/13/24 08:00 64 08/13/24 08:00 Room Air 08/13/24 08:00 98.9 F 64 24 H 133/40 L 100 08/13/24 07:32 66 16 08/13/24 07:32 100 Room Air 08/13/24 06:00 78 08/13/24 04:40 97.6 F 68 16 126/42 L 100 08/13/24 04:00 70 08/13/24 04:00 Room Air 08/13/24 02:00 69 08/13/24 00:28 97.8 F 79 16 139/40 L 100 08/13/24 00:00 Room Air 08/13/24 00:00 61 08/12/24 22:00 66 08/12/24 20:57 70 08/12/24 20:39 96 Room Air 08/12/24 20:25 61 16 08/12/24 20:18 98.2 F 63 22 H 120/48 L 90 02/04/25 20:15 64 16 08/12/24 20:00 62 08/12/24 20:00 Room Air 08/12/24 18:00 72 Intake/Output Intake/Output: Intake & Output 08/10/24 08/11/24 08/12/24 08/13/24 23:59 23:59 23:59 23:59 Intake Total 615 385 480 480 Output Total 3000 1999 1 [id number] -[id number] 487 553 Meds/Results Medications: Active Medications Generic Name Dose Route Start Last Admin Trade Name Freq PRN Reason Stop Dose Admin Acetaminophen 325 mg 08/10/24 00:39 08/10/24 23:50 Acetaminophen 325 Mg Tablet BY MOUTH 325 mg Q4H PRN Administration Pain 1-3 Albuterol/Ipratropium 3 ml 08/09/24 20:00 08/13/24 14:25 Ipratropium 0.5 Mg/Albuterol Sulfate 2.5 Mg Ampul.Neb 3 Ml INHALATION Not Given Q6HRT ON LICENSE OF [facility] Benzocaine 1 lozenge 07/30/24 18:22 07/30/24 21:28 Benzocaine/Menthol (*Bkc) 18 Ea Lozenge PO 1 lozenge PRN PRN Administration Sore Throat Benzonatate 100 mg 07/30/24 18:22 07/30/24 21:27 Benzonatate 100 Mg Capsule PO 100 mg TID PRN Administration Cough Calcium Carbonate 600 mg 08/01/24 17:30 08/13/24 08:40 Calcium Carbonate (Tums) 500 Mg (200 Mg Elemental) PO 600 mg TID THERESE Administration Carvedilol 3.125 mg 08/02/24 21:00 08/13/24 09:42 Carvedilol 3.125 Mg Tablet PO Not Given Q12HR THERESE Cyanocobalamin 500 mcg 07/31/24 09:00 08/13/24 08:40 Cyanocobalamin 500 Mcg Tablet PO 500 mcg DAILY THERESE Administration Dextrose 12.5 gm 07/30/24 18:29 Dextrose 50% 25 Gm/50 Ml Syringe IV PUSH PRN PRN Hypoglycemia Protocol Dicyclomine HCl 10 mg 07/30/24 21:35 Dicyclomine Hcl 10 Mg Capsule PO BID PRN Abdominal Pain Epoetin Son-epbx 10,000 units 08/13/24 18:12 08/13/24 11:21 Epoetin Son-Epbx 10,000 Units/Ml Vial IV PUSH 08/13/24 18:13 10,000 units ONCE ONE Administration Ergocalciferol 50,000 units 08/02/24 09:00 08/09/24 10:17 Ergocalciferol 50,000 Units Capsule PO 50,000 units WEEKLY THERESE Administration Glucagon 1 mg 07/30/24 18:29 Glucagon For Inj 1 Mg Vial IM PRN PRN Hypoglycemia Protocol Glucose 15 gm 07/30/24 18:29 Glucose Oral Gel 15 Gm Of Glucse In 37.5 Gm Tube PO PRN PRN Hypoglycemia Protocol Guaifenesin 600 mg 08/12/24 10:52 Guaifenesin 12 Hr 600 Mg Tabcr PO Q12HR PRN Cough Heparin Sodium (Porcine) 5,000 units 08/03/24 14:00 08/13/24 05:41 Heparin Sodium 5,000 Units/Ml Vial SUB-Q 5,000 units Q8HR THERESE Administration Dextrose 1,000 mls @ 100 mls/hr 07/30/24 18:29 Dextrose 5% 1,000 Ml IVPB PRN PRN Hypoglycemia Protocol Albumin Human 50 mls @ 999 mls/hr 08/01/24 07:00 08/06/24 13:46 Albutein IVPB 08/31/24 06:59 999 mls/hr Q10M PRN Administration HYPOTENSION Insulin Aspart 1 - 2 units 08/01/24 22:20 08/08/24 22:26 Insulin Aspart (*Bkc) 100 Units/Ml SUB-Q 1 units HS ON LICENSE OF [facility] Administration Protocol Insulin Aspart 2 - 5 units 08/10/24 17:50 08/13/24 05:42 Insulin Aspart (*Bkc) 100 Units/Ml SUB-Q 2 units ACHS THERESE Administration Protocol Insulin Glargine 35 units 08/02/24 21:00 08/07/24 23:21 Insulin Glargine (*Bkc) 100 Units/Ml SUB-Q Not Given HS ON LICENSE OF [facility] Miconazole Nitrate 1 applic 08/06/24 11:52 Miconazole Nitrate 2% Cream 30 Gm Tube TOPICAL Q12HR PRN maceration * Home Med * 1.8 mg 07/31/24 21:00 Liraglutide [Victoza SUB-Q 08/30/24 20:59 2-Agustín] 0.6 Mg/0.1 HS THERESE Ml (18 Mg/3 Ml) Pen Injector Pantoprazole Sodium 40 mg 07/31/24 09:00 08/13/24 08:40 Pantoprazole 40 Mg Tablet PO 40 mg Q12HR THERESE Administration Perflutren Lipid Microsphere 0 ml 08/10/24 20:01 Perflutren Lipid Microspheres 1.5 Ml Vial Diluted To 10 Ml Total Volume IV PUSH 08/13/24 20:01 ONCE PRN adequate visualization Protocol Sevelamer Carbonate 800 mg 07/31/24 08:00 08/13/24 08:40 Sevelamer Carbonate 800 Mg Tablet PO 800 mg TIDWM THERESE Administration Sitagliptin Phosphate 100 mg 07/31/24 09:00 07/31/24 08:56 Sitagliptin Phosphate 100 Mg Tablet PO 100 mg DAILY THERESE Administration Sodium Chloride 1 spray 08/10/24 19:11 Saline 0.65% Steve Soln 44 Ml Btl NASAL Q4HR PRN Congestion Venlafaxine HCl 37.5 mg 08/03/24 11:50 08/09/24 10:17 Venlafaxine Hcl Xr 37.5 Mg Cap PO Not Given DAILY@0800 THERESE Vitamin B Complex/Folic Acid 1 cap 07/31/24 09:00 08/13/24 08:40 Vitamin B Cmplx/Vit C/Folic Ac 1 Capsule PO 1 cap DAILY THERESE Administration Radiology Results: ITS Impressions Chest CTA 08/06/24 08:36 IMPRESSION: 1. No pulmonary embolism. Sensitivity decreased in the smaller subsegmental pulmonary arteries due to respiratory motion. 2. Right middle and lower lobe with fluid and mucus in the bronchi consistent with pneumonia. 3. Small bilateral pleural effusions. 4. 4.3 cm fusiform ascending thoracic aortic aneurysm. 5. 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 Head CT 08/07/24 12:33 IMPRESSION: 1. Normal aging brain. No acute intracranial process. 2. Fluid/mucus in some of the paranasal sinuses consistent with acute sinusitis. Lumbar Spine CT 08/07/24 12:38 IMPRESSION: 1. Mild lumbar spondylosis. Brain MRI 08/08/24 16:41 IMPRESSION: 1. No acute intracranial process. 2. Moderate scattered calcific white matter T2 hyperintensity which within normal limits for age and consistent with chronic small vessel ischemic disease. 3. Fluid/mucus in some of the paranasal sinuses consistent with acute sinusitis. Chest X-Ray 08/11/24 07:10 Impression: Probable mild bibasilar pulmonary edema with minimal right pleural effusion. Stable cardiomegaly. Possible underlying COPD. Chest CT 08/11/24 14:08 IMPRESSION: 1. Small pleural effusions, right worse than left. 2. Ectasia of ascending aorta measuring 4.4 cm. Labs Labs: Laboratory Tests 08/13/24 09:17 08/13/24 09:17 Calcium 8.1 L Phosphorus 1.0 L Albumin 3.4 L
--- NOTE | 2024-08-13 12:31 | P.PNIM_ITS ---
Progress Note: A&P Assessment and Plan (1) Acute respiratory failure with hypoxia: Code(s): J96.01 - Acute respiratory failure with hypoxia Status: Acute Assessment and Plan: CT chest reviewed Currently on dialysis MWF BiPAP Continue to wean (2) RSV infection: Qualifiers: RSV infection type: unspecified Qualified Code(s): B33.8 - Other specified viral diseases Code(s): B33.8 - Other specified viral diseases Status: Acute Assessment and Plan: * Respiratory panel positive for RSV * Continue DuoNebs, Tessalon Perles, Mucinex * initial Chest x-ray negative * Reviewed CT and CXR * S/p Prednisone (3) ESRD (end stage renal disease) on dialysis: Code(s): N18.6 - End stage renal disease; Z99.2 - Dependence on renal dialysis Status: Chronic Assessment and Plan: continue dialysis Nephrology following (4) Type 2 diabetes mellitus: Qualifiers: Diabetes mellitus bed bug exterminator insulin use: without [facility] use Diabetes mellitus complication status: without complication Qualified Code(s): E11.9 - Type 2 diabetes mellitus without complications Code(s): E11.9 - Type 2 diabetes mellitus without complications Status: Chronic Assessment and Plan: * Blood sugars ranging 139-284 * Hgb A1C 7.1 * Accu checks AC/HS * Low-dose SSI ordered * Hold Lantus 35 units at bedtime * Will hold Victoza and sitagliptin while inpatient * hypoglycemic protocol in place * Diabetic diet ordered * monitor (5) Atrial fibrillation: Qualifiers: Atrial fibrillation type: unspecified Qualified Code(s): I48.91 - Unspecified atrial fibrillation Code(s): I48.91 - Unspecified atrial fibrillation Status: Chronic Assessment and Plan: * EKG showing AFib rate controlled * Not currently on any home medications??? * investigate (6) Anemia: Qualifiers: Anemia type: unspecified type Qualified Code(s): D64.9 - Anemia, unspecified Code(s): D64.9 - Anemia, unspecified Status: Chronic Assessment and Plan: Likely secondary to her end-stage renal disease * Hemoglobin 9.1 (7) Hypertension: Qualifiers: Hypertension type: unspecified Qualified Code(s): I10 - Essential (primary) hypertension Code(s): I10 - Essential (primary) hypertension Status: Chronic Assessment and Plan: * Low blood pressures resolved on Coreg monitor and adjust stable (8) Metabolic encephalopathy: Code(s): G93.41 - Metabolic encephalopathy Status: Acute Assessment and Plan: Currently patient on dialysis Neurology Consulted ABG shows hypercapnia BiPAP settings 06/13 Will consult pulmonology Temporary BiPAP to eliminate CO2 No evidence of receiving anxiolytics or sedatives CT head negative MRI brain reviewed TSH normal, RPR negative, Vitamin B12 normal. Possibly fluid overload vs toxin versus infectious process vs underlying pulmonary disease As per her daughter,recently diagnosed hepatitis B infection Hepatitis B panel shows no acute infection but evidence of exposure Needs to follow-up with GI as outpatient (9) Hepatitis B: Code(s): B19.10 - Unspecified viral hepatitis B without hepatic coma Status: Acute Assessment and Plan: Reviewed Hepatitis B panel (10) Pneumonia: Code(s): J18.9 - Pneumonia, unspecified organism Status: Acute Assessment and Plan: Ct chest no pnuemonia pnuemonia ruled out stopp abx Plan Diabetic neuropathy HOld Venlafaxine monitor DVT prophylaxis on Sq Heparin PT/OT recommends SNF awaiting placement Subjective Date/time seen: 08/13/24 12:31 Interval history: Comfortable at bedside and awaiting placement Review of Systems Review of Systems: All systems reviewed & are unremarkable except as noted in HPI and below Constitutional: Constitutional: Reports as per HPI and Reports no additional constitutional complaints Eyes: Eyes: Reports as per HPI and Reports no additional eye complaints ENT: Reports system reviewed and no additional complaints, except as documented and Reports as per HPI Cardiovascular: Cardiovascular: Reports as per HPI and Reports no additional cardiovascular complaints Respiratory: Respiratory: Reports as per HPI and Reports no additional respiratory complaints Gastrointestinal: Gastrointestinal: Reports as per HPI and Reports no additional gastrointestinal complaints Genitourinary: Genitourinary: Reports no additional female genitourinary complaints and Reports as per HPI Musculoskeletal: Musculoskeletal: Reports no additional musculoskeletal complaints and Reports as per HPI Integumentary/Breasts: Skin/Breast: Reports system reviewed and no additional complaints, except as docu and Reports as per HPI Neurologic: Reports system reviewed and no additional complaints, except as documented and Reports as per HPI Psychiatric: Psychiatric: Reports no additional psychiatric complaints and Reports as per HPI Exam Narrative: General: In no acute distress Cardiac: Normal S1 and S2. No murmur, gallops or friction rubs, peripheral pulses intact. Respiratory: Rhonchi with mild expiratory wheezing bilaterally---R>L, , on 1L NC Gastrointestinal: soft, non-distended, non-tender, normoactive bowel sounds. :anuric on HD M-W-F Neuro: Alert and oriented x4 Const: General: comfortable and no acute distress Other: Elderly, female, ill-appearing HENMT: Face/Nose/Sinus: Normal nares present Mouth: Yes moist mucous membranes Eyes: General: appearance normal, both eyes and all related structures Sclera: sclerae normal Pupils: Equal, round and reactive pupils present EOM: EOMs intact bilaterally Resp: Other: Bibasilar crackles, + tachypnea without increased work of breathing Cardio: Rate: regular rate Rhythm: regular rhythm Other: S1-S2 present without murmur, rub, ectopy GI: Other: Abdomen soft, nondistended, nontender. Skin: General skin exam: normal color and no rashes or lesions noted Wounds: no wounds Neuro: Cranial nerves: Yes Equal, round and reactive pupils present Speech: normal speech Motor exam (neuro): 5/5 motor strength present throughout Sensory Exam: normal sensation Other: S1-S2 present without murmur, rub, ectopy Extrem: General: normal exam except as noted Other: +thrill and bruit to RUE fistula. old fistula to LUE. Psych: Mental Status: mental status grossly normal Affect: normal affect Other: Good insight and judgment, pleasant Objective Data Vital Signs Vital Signs: Vital Signs - 24 hr 08/12/24 13:16 08/12/24 13:36 08/12/24 13:59 Temperature Pulse Rate 64 63 81 Respiratory Rate 16 16 Blood Pressure Pulse Oximetry Oxygen Delivery 08/12/24 15:48 08/12/24 16:00 08/12/24 16:00 Temperature 98.6 F Pulse Rate 62 62 Respiratory Rate 22 H Blood Pressure 138/43 L Pulse Oximetry 98 Oxygen Delivery Room Air 08/12/24 18:00 08/12/24 20:00 08/12/24 20:00 Temperature Pulse Rate 72 62 Respiratory Rate Blood Pressure Pulse Oximetry Oxygen Delivery Room Air 08/12/24 20:15 08/12/24 20:18 08/12/24 20:25 Temperature 98.2 F Pulse Rate 64 63 61 Respiratory Rate 16 22 H 16 Blood Pressure 120/48 L Pulse Oximetry 90 Oxygen Delivery 08/12/24 20:39 08/12/24 20:57 08/12/24 22:00 Temperature Pulse Rate 70 66 Respiratory Rate Blood Pressure Pulse Oximetry 96 Oxygen Delivery Room Air 08/13/24 00:00 08/13/24 00:00 08/13/24 00:28 Temperature 97.8 F Pulse Rate 61 79 Respiratory Rate 16 Blood Pressure 139/40 L Pulse Oximetry 100 Oxygen Delivery Room Air 08/13/24 02:00 08/13/24 04:00 08/13/24 04:00 Temperature Pulse Rate 69 70 Respiratory Rate Blood Pressure Pulse Oximetry Oxygen Delivery Room Air 08/13/24 04:40 08/13/24 06:00 08/13/24 07:32 Temperature 97.6 F Pulse Rate 68 78 Respiratory Rate 16 Blood Pressure 126/42 L Pulse Oximetry 100 100 Oxygen Delivery Room Air 08/13/24 07:32 08/13/24 08:00 08/13/24 08:00 Temperature 98.9 F Pulse Rate 66 64 Respiratory Rate 16 24 H Blood Pressure 133/40 L Pulse Oximetry 100 Oxygen Delivery Room Air 08/13/24 08:00 08/13/24 10:00 Temperature Pulse Rate 64 64 Respiratory Rate Blood Pressure Pulse Oximetry Oxygen Delivery Intake/Output Intake/Output: Intake & Output 08/10/24 08/11/24 08/12/24 08/13/24 23:59 23:59 23:59 23:59 Intake Total 615 385 480 240 Output Total 3000 1999 1 Balance -5104 -4755 479 240 Meds/Results Medications: Active Medications Generic Name Dose Route Start Last Admin Trade Name Freq PRN Reason Stop Dose Admin Acetaminophen 325 mg 08/10/24 00:39 08/10/24 23:50 Acetaminophen 325 Mg Tablet BY MOUTH 325 mg Q4H PRN Administration Pain 1-3 Albuterol/Ipratropium 3 ml 08/09/24 20:00 08/13/24 07:32 Ipratropium 0.5 Mg/Albuterol Sulfate 2.5 Mg Ampul.Neb 3 Ml INHALATION 3 ml Q6HRT THERESE Administration Benzocaine 1 lozenge 07/30/24 18:22 07/30/24 21:28 Benzocaine/Menthol (*Bkc) 18 Ea Lozenge PO 1 lozenge PRN PRN Administration Sore Throat Benzonatate 100 mg 07/30/24 18:22 07/30/24 21:27 Benzonatate 100 Mg Capsule PO 100 mg TID PRN Administration Cough Calcium Carbonate 600 mg 08/01/24 17:30 08/13/24 08:40 Calcium Carbonate (Tums) 500 Mg (200 Mg Elemental) PO 600 mg TID THERESE Administration Carvedilol 3.125 mg 08/02/24 21:00 08/13/24 09:42 Carvedilol 3.125 Mg Tablet PO Not Given Q12HR THERESE Cyanocobalamin 500 mcg 07/31/24 09:00 08/13/24 08:40 Cyanocobalamin 500 Mcg Tablet PO 500 mcg DAILY THERESE Administration Dextrose 12.5 gm 07/30/24 18:29 Dextrose 50% 25 Gm/50 Ml Syringe IV PUSH PRN PRN Hypoglycemia Protocol Dicyclomine HCl 10 mg 07/30/24 21:35 Dicyclomine Hcl 10 Mg Capsule PO BID PRN Abdominal Pain Epoetin Son-epbx 10,000 units 08/13/24 18:12 08/13/24 11:21 Epoetin Son-Epbx 10,000 Units/Ml Vial IV PUSH 08/13/24 18:13 10,000 units ONCE ONE Administration Ergocalciferol 50,000 units 08/02/24 09:00 08/09/24 10:17 Ergocalciferol 50,000 Units Capsule PO 50,000 units WEEKLY THERESE Administration Glucagon 1 mg 07/30/24 18:29 Glucagon For Inj 1 Mg Vial IM PRN PRN Hypoglycemia Protocol Glucose 15 gm 07/30/24 18:29 Glucose Oral Gel 15 Gm Of Glucse In 37.5 Gm Tube PO PRN PRN Hypoglycemia Protocol Guaifenesin 600 mg 08/12/24 10:52 Guaifenesin 12 Hr 600 Mg Tabcr PO Q12HR PRN Cough Heparin Sodium (Porcine) 5,000 units 08/03/24 14:00 08/13/24 05:41 Heparin Sodium 5,000 Units/Ml Vial SUB-Q 5,000 units Q8HR THERESE Administration Dextrose 1,000 mls @ 100 mls/hr 07/30/24 18:29 Dextrose 5% 1,000 Ml IVPB PRN PRN Hypoglycemia Protocol Albumin Human 50 mls @ 999 mls/hr 08/01/24 07:00 08/06/24 13:46 Albutein IVPB 08/31/24 06:59 999 mls/hr Q10M PRN Administration HYPOTENSION Insulin Aspart 1 - 2 units 08/01/24 22:20 08/08/24 22:26 Insulin Aspart (*Bkc) 100 Units/Ml SUB-Q 1 units HS THERESE Administration Protocol Insulin Aspart 2 - 5 units 08/10/24 17:50 08/13/24 05:42 Insulin Aspart (*Bkc) 100 Units/Ml SUB-Q 2 units ACHS THERESE Administration Protocol Insulin Glargine 35 units 08/02/24 21:00 08/07/24 23:21 Insulin Glargine (*Bkc) 100 Units/Ml SUB-Q Not Given HS [facility] Miconazole Nitrate 1 applic 08/06/24 11:52 Miconazole Nitrate 2% Cream 30 Gm Tube TOPICAL Q12HR PRN maceration * Home Med * 1.8 mg 07/31/24 21:00 Liraglutide [Victoza SUB-Q 08/30/24 20:59 2-Agustín] 0.6 Mg/0.1 HS THERESE Ml (18 Mg/3 Ml) Pen Injector Pantoprazole Sodium 40 mg 07/31/24 09:00 08/13/24 08:40 Pantoprazole 40 Mg Tablet PO 40 mg Q12HR THERESE Administration Perflutren Lipid Microsphere 0 ml 08/10/24 20:01 Perflutren Lipid Microspheres 1.5 Ml Vial Diluted To 10 Ml Total Volume IV PUSH 08/13/24 20:01 ONCE PRN adequate visualization Protocol Sevelamer Carbonate 800 mg 07/31/24 08:00 08/13/24 08:40 Sevelamer Carbonate 800 Mg Tablet PO 800 mg TIDWM THERESE Administration Sitagliptin Phosphate 100 mg 07/31/24 09:00 07/31/24 08:56 Sitagliptin Phosphate 100 Mg Tablet PO 100 mg DAILY THERESE Administration Sodium Chloride 1 spray 08/10/24 19:11 Saline 0.65% Steve Soln 44 Ml Btl NASAL Q4HR PRN Congestion Venlafaxine HCl 37.5 mg 08/03/24 11:50 08/09/24 10:17 Venlafaxine Hcl Xr 37.5 Mg Cap PO Not Given DAILY@0800 THERESE Vitamin B Complex/Folic Acid 1 cap 07/31/24 09:00 08/13/24 08:40 Vitamin B Cmplx/Vit C/Folic Ac 1 Capsule PO 1 cap DAILY THERESE Administration Radiology Results: ITS Impressions Chest CTA 08/06/24 08:36 IMPRESSION: 1. No pulmonary embolism. Sensitivity decreased in the smaller subsegmental pulmonary arteries due to respiratory motion. 2. Right middle and lower lobe with fluid and mucus in the bronchi consistent with pneumonia. 3. Small bilateral pleural effusions. 4. 4.3 cm fusiform ascending thoracic aortic aneurysm. 5. 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 Head CT 08/07/24 12:33 IMPRESSION: 1. Normal aging brain. No acute intracranial process. 2. Fluid/mucus in some of the paranasal sinuses consistent with acute sinusitis. Lumbar Spine CT 08/07/24 12:38 IMPRESSION: 1. Mild lumbar spondylosis. Brain MRI 08/08/24 16:41 IMPRESSION: 1. No acute intracranial process. 2. Moderate scattered calcific white matter T2 hyperintensity which within normal limits for age and consistent with chronic small vessel ischemic disease. 3. Fluid/mucus in some of the paranasal sinuses consistent with acute sinusitis. Chest X-Ray 08/11/24 07:10 Impression: Probable mild bibasilar pulmonary edema with minimal right pleural effusion. Stable cardiomegaly. Possible underlying COPD. Chest CT 08/11/24 14:08 IMPRESSION: 1. Small pleural effusions, right worse than left. 2. Ectasia of ascending aorta measuring 4.4 cm. Labs Labs: Laboratory Results - last 24 hr 08/12/24 08/12/24 08/12/24 11:36 16:29 20:44 WBC RBC Hgb Hct MCV MCH MCHC RDW Plt Count MPV Immature Gran % (Auto) Neut % (Auto) Lymph % (Auto) [place] % (Auto) Eos % (Auto) Baso % (Auto) Lymph # (Auto) [place] # (Auto) Eos # (Auto) Baso # (Auto) Abs Immat Gran (auto) Absolute Neuts (auto) Absolute Nucleated RBC Nucleated RBC % % Immature Plt Fraction Sodium Potassium Chloride Carbon Dioxide Anion Gap BUN Creatinine Estim Creat Clear Calc Estimated GFR Glucose POC Capillary Glucose 373 H 422 H 352 H Calcium Phosphorus Albumin 08/13/24 08/13/24 08/13/24 05:40 07:55 09:17 WBC 6.6 RBC 2.94 L Hgb 9.5 L Hct 30.8 L MCV 104.8 H MCH 32.3 MCHC 30.8 L RDW 19.0 H Plt Count 100 L MPV 11.3 H Immature Gran % (Auto) 0.5 Neut % (Auto) 79.7 H Lymph % (Auto) 12.5 L [place] % (Auto) 6.8 Eos % (Auto) 0.5 Baso % (Auto) 0.0 L Lymph # (Auto) 0.83 L [place] # (Auto) 0.5 Eos # (Auto) 0.0 Baso # (Auto) 0.0 Abs Immat Gran (auto) 0.03 Absolute Neuts (auto) 5.3 Absolute Nucleated RBC 0.000 Nucleated RBC % 0.0 % Immature Plt Fraction 4.3 Sodium 134 L Potassium 4.0 Chloride 101 Carbon Dioxide 23 Anion Gap 10 BUN 44 H Creatinine 4.48 H Estim Creat Clear Calc Not Reportable Estimated GFR 10 L Glucose 290 H POC Capillary Glucose 244 H 195 H Calcium 8.1 L Phosphorus 1.0 L Albumin 3.4 L Quality VTE Prophylaxis VTE prophylaxis: mechanical ordered
[2024-08-13 17:27] LABS: Adenovirus DNA Not Detected (Not Detected); Chlamydophila pneumoniae Not Detected (Not Detected); Coronavirus 229E Not Detected (Not Detected); Coronavirus HKU1 Not Detected (Not Detected); Coronavirus NL63 Not Detected (Not Detected); Coronavirus OC43 Not Detected (Not Detected); Human Metapneumovirus Not Detected (Not Detected); Human Parainfluenza Virus 1 Not Detected (Not Detected); Human Parainfluenza Virus 2 Not Detected (Not Detected); Human Parainfluenza Virus 3 Not Detected (Not Detected); Human Parainfluenza Virus 4 Not Detected (Not Detected); Human RSV B Not Detected (Not Detected); Influenza A Not Detected (Not Detected); Influenza B Not Detected (Not Detected); Mycoplasma pneumoniae Not Detected (Not Detected); Rhinovirus/Enterovirus Not Detected (Not Detected)
[2024-08-13 18:29] LABS: Glucose Point of Care 156 mg/dl (65-105)
[2024-08-13 18:29] LABS: Glucose Point of Care 312 mg/dl (65-105)
[2024-08-13 20:29] LABS: Glucose Point of Care 349 mg/dl (65-105)
[2024-08-13] MEDS: carvediloL 3.125 MG TABLET PO (20:55)
[2024-08-13] MEDS: SIMETHICONE 80 MG TAB.CHEW PO (20:55)
[2024-08-14] VITALS (13 sets, daily range): BP systolic 98–140; BP diastolic 38–50; PULSE 48–94; RESP 16–24; TEMP 36.9–37.3; O2SAT 97–100
[2024-08-14] MEDS: IPRATROPIUM 0.5 MG/ALBUTEROL SULFATE 2.5 MG AMPUL.NEB 3 ML INHALATION ×4 (02:03→20:51)
[2024-08-14] MEDS: HEPARIN SODIUM 5,000 UNITS/ML VIAL 5000 UNITS SUB-Q ×3 (06:43→20:28)
[2024-08-14 07:47] LABS: Glucose Point of Care 250 mg/dl (65-105)
[2024-08-14] MEDS: CALCIUM CARBONATE (TUMS) 500 MG (200 MG ELEMENTAL) 600 MG PO ×3 (08:40→16:30)
[2024-08-14] MEDS: SEVELAMER CARBONATE 800 MG TABLET PO ×3 (08:40→16:30)
[2024-08-14] MEDS: carvediloL 3.125 MG TABLET PO ×2 (08:40→20:27)
[2024-08-14] MEDS: SIMETHICONE 80 MG TAB.CHEW PO ×4 (08:41→20:28)
[2024-08-14] MEDS: INSULIN ASPART (*BKC) 100 UNITS/ML SUB-Q ×3 (08:41→16:33)
[2024-08-14] MEDS: CYANOCOBALAMIN 500 MCG TABLET PO (08:41)
[2024-08-14] MEDS: VITAMIN B CMPLX/VIT C/FOLIC AC 1 CAPSULE 1 CAP PO (08:41)
[2024-08-14] MEDS: PANTOPRAZOLE 40 MG TABLET PO ×2 (08:41→20:28)
[2024-08-14 11:59] LABS: Glucose Point of Care 313 mg/dl (65-105)
[2024-08-14] MEDS: ACETAMINOPHEN 325 MG TABLET BY MOUTH ×2 (12:23→21:40)
--- NOTE | 2024-08-14 14:11 | P.PNNP_ITS ---
Progress Note: A&P Assessment and Plan (1) End stage renal disease: Code(s): N18.6 - End stage renal disease Status: Chronic Assessment and Plan: * HD tomorrow * continue M/W/F dialysis schedule while hospitalized * follow electrolytes, volume status, and clearance (2) Altered mental status: Code(s): R41.82 - Altered mental status, unspecified Status: Acute Assessment and Plan: * significant improvement if not resolved * evaluation to date noted: * CT of head negative * off all sedating medication * MRI of brain unremarkable * TSH/RPR/Vitamin B12 okay * blood gas done on 08/09 with evidence of CO2 retention (though to be secondary to fluid overload) * follow mentation (3) Hypoxia: Code(s): R09.02 - Hypoxemia Status: Acute Assessment and Plan: * resolved - on room air * as noted by EMS on admission * 80% oxygen saturations on room air * improved with 2L oxygen by nasal cannula * presumably due to mild pulmonary edema and RSV (as noted on admission) * s/p DUF with 3L fluid on 08/10 and 2L with HD on 08/11 * continue supportive therapy (4) RSV infection: Qualifiers: RSV infection type: unspecified Qualified Code(s): B33.8 - Other specified viral diseases Code(s): B33.8 - Other specified viral diseases Status: Acute Assessment and Plan: * tested positive for RSV on 07/30 in ER * reported onset of symptoms on 07/28 * continues supportive care: * Mucinex * Tessalon Perles p.r.n. * DuoNeb as needed * Tylenol (5) Atrial fibrillation: Qualifiers: Atrial fibrillation type: unspecified Qualified Code(s): I48.91 - Unspecified atrial fibrillation Code(s): I48.91 - Unspecified atrial fibrillation Status: Chronic Assessment and Plan: * paroxysmal * rate controlled * not on anticoagulation (due to hx of GI bleeding versus fall risk?) (6) Anemia: Qualifiers: Anemia type: unspecified type Qualified Code(s): D64.9 - Anemia, unspecified Code(s): D64.9 - Anemia, unspecified Status: Chronic Assessment and Plan: * related to ESRD * Epogen with HD * follow trend of H/H (7) Hypertension: Qualifiers: Hypertension type: unspecified Qualified Code(s): I10 - Essential (primary) hypertension Code(s): I10 - Essential (primary) hypertension Status: Chronic Assessment and Plan: * reasonable control * follow hemodynamics (8) Type 2 diabetes mellitus: Qualifiers: 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 Will continue to follow. L Subjective Date/time seen: 08/14/24 14:11 Interval history: Follow-up for end stage renal disease on hemodialysis. Tolerated dialysis treatment yesterday without any issues or problems; breathing/respiratory status seems stable if not better (weaned off supplemental oxygen); overall, feeling better in general; no events overnight or earlier this morning. Exam 2 Narrative: General: elderly female in NAD Heart: normal S1 and S2; no rub Lungs: clear anteriorly; decreased at bases Abdomen: soft, nontender, nondistended, positive bowel sounds Extremities: no cyanosis or clubbing; no edema Skin: no nodules Objective Data Vital Signs Vital Signs: Vital Signs Temp Pulse Resp BP Pulse Ox O2 Del Method 08/14/24 13:54 64 16 08/14/24 12:00 98.7 F 94 24 H 98/50 L 99 08/14/24 10:37 Room Air 08/14/24 09:10 62 16 08/14/24 08:59 63 16 08/14/24 08:59 97 Room Air 08/14/24 08:40 69 08/14/24 08:00 99.2 F 57 L 22 H 140/38 L 100 08/14/24 02:04 52 L 16 08/13/24 23:29 98.6 F 57 L 24 H 137/99 H 100 08/13/24 20:55 60 08/13/24 20:32 64 16 08/13/24 20:22 61 16 08/13/24 20:22 98 Room Air 08/13/24 20:00 Room Air Intake/Output Intake/Output: Intake & Output 08/11/24 08/12/24 08/13/24 08/14/24 23:59 23:59 23:59 23:59 Intake Total 034 177 1787 730 Output Total 1999 07 91 Balance -1615 181 873 730 Meds/Results Medications: Active Medications Generic Name Dose Route Start Last Admin Trade Name Freq PRN Reason Stop Dose Admin Acetaminophen 325 mg 08/10/24 00:39 08/14/24 12:23 Acetaminophen 325 Mg Tablet BY MOUTH 325 mg Q4H PRN Administration Pain 1-3 Albuterol/Ipratropium 3 ml 08/09/24 20:00 08/14/24 13:53 Ipratropium 0.5 Mg/Albuterol Sulfate 2.5 Mg Ampul.Neb 3 Ml INHALATION 3 ml Q6HRT THERESE Administration Benzocaine 1 lozenge 07/30/24 18:22 07/30/24 21:28 Benzocaine/Menthol (*Bkc) 18 Ea Lozenge PO 1 lozenge PRN PRN Administration Sore Throat Benzonatate 100 mg 07/30/24 18:22 07/30/24 21:27 Benzonatate 100 Mg Capsule PO 100 mg TID PRN Administration Cough Calcium Carbonate 600 mg 08/01/24 17:30 08/14/24 16:30 Calcium Carbonate (Tums) 500 Mg (200 Mg Elemental) PO 600 mg TID THERESE Administration Carvedilol 3.125 mg 08/02/24 21:00 08/14/24 08:40 Carvedilol 3.125 Mg Tablet PO 3.125 mg Q12HR THERESE Administration Cyanocobalamin 500 mcg 07/31/24 09:00 08/14/24 08:41 Cyanocobalamin 500 Mcg Tablet PO 500 mcg DAILY THERESE Administration Dextrose 12.5 gm 07/30/24 18:29 Dextrose 50% 25 Gm/50 Ml Syringe IV PUSH PRN PRN Hypoglycemia Protocol Dicyclomine HCl 10 mg 07/30/24 21:35 Dicyclomine Hcl 10 Mg Capsule PO BID PRN Abdominal Pain Ergocalciferol 50,000 units 08/02/24 09:00 08/09/24 10:17 Ergocalciferol 50,000 Units Capsule PO 50,000 units WEEKLY THERESE Administration Glucagon 1 mg 07/30/24 18:29 Glucagon For Inj 1 Mg Vial IM PRN PRN Hypoglycemia Protocol Glucose 15 gm 07/30/24 18:29 Glucose Oral Gel 15 Gm Of Glucse In 37.5 Gm Tube PO PRN PRN Hypoglycemia Protocol Guaifenesin 600 mg 08/12/24 10:52 Guaifenesin 12 Hr 600 Mg Tabcr PO Q12HR PRN Cough Heparin Sodium (Porcine) 5,000 units 08/03/24 14:00 08/14/24 16:29 Heparin Sodium 5,000 Units/Ml Vial SUB-Q 5,000 units Q8HR THERESE Administration Dextrose 1,000 mls @ 100 mls/hr 07/30/24 18:29 Dextrose 5% 1,000 Ml IVPB PRN PRN Hypoglycemia Protocol Albumin Human 50 mls @ 999 mls/hr 08/01/24 07:00 08/06/24 13:46 Albutein IVPB 08/31/24 06:59 999 mls/hr Q10M PRN Administration HYPOTENSION Insulin Aspart 1 - 2 units 08/01/24 22:20 08/08/24 22:26 Insulin Aspart (*Bkc) 100 Units/Ml SUB-Q 1 units HS THERESE Administration Protocol Insulin Aspart 2 - 5 units 08/14/24 08:00 08/14/24 16:33 Insulin Aspart (*Bkc) 100 Units/Ml SUB-Q 4 units TIDWM THERESE Administration Protocol Insulin Glargine 35 units 08/02/24 21:00 08/07/24 23:21 Insulin Glargine (*Bkc) 100 Units/Ml SUB-Q Not Given HS [facility] Insulin Glargine 15 units 08/14/24 21:00 Insulin Glargine (*Bkc) 100 Units/Ml SUB-Q HS [facility] Miconazole Nitrate 1 applic 08/06/24 11:52 Miconazole Nitrate 2% Cream 30 Gm Tube TOPICAL Q12HR PRN maceration * Home Med * 1.8 mg 07/31/24 21:00 Liraglutide [Victoza SUB-Q 08/30/24 20:59 2-Agustín] 0.6 Mg/0.1 HS THERESE Ml (18 Mg/3 Ml) Pen Injector Pantoprazole Sodium 40 mg 07/31/24 09:00 08/14/24 08:41 Pantoprazole 40 Mg Tablet PO 40 mg Q12HR THERESE Administration Sevelamer Carbonate 800 mg 07/31/24 08:00 08/14/24 16:30 Sevelamer Carbonate 800 Mg Tablet PO 800 mg TIDWM THERESE Administration Simethicone 80 mg 08/13/24 21:00 08/14/24 16:30 Simethicone 80 Mg Tab.Chew PO 80 mg QID THERESE Administration Sitagliptin Phosphate 100 mg 07/31/24 09:00 07/31/24 08:56 Sitagliptin Phosphate 100 Mg Tablet PO 100 mg DAILY THERESE Administration Sodium Chloride 1 spray 08/10/24 19:11 Saline 0.65% Steve Soln 44 Ml Btl NASAL Q4HR PRN Congestion Venlafaxine HCl 37.5 mg 08/03/24 11:50 08/09/24 10:17 Venlafaxine Hcl Xr 37.5 Mg Cap PO Not Given DAILY@0800 THERESE Vitamin B Complex/Folic Acid 1 cap 07/31/24 09:00 08/14/24 08:41 Vitamin B Cmplx/Vit C/Folic Ac 1 Capsule PO 1 cap DAILY THERESE Administration Radiology Results: ITS Impressions Chest CTA 08/06/24 08:36 IMPRESSION: 1. No pulmonary embolism. Sensitivity decreased in the smaller subsegmental pulmonary arteries due to respiratory motion. 2. Right middle and lower lobe with fluid and mucus in the bronchi consistent with pneumonia. 3. Small bilateral pleural effusions. 4. 4.3 cm fusiform ascending thoracic aortic aneurysm. 5. 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 Head CT 08/07/24 12:33 IMPRESSION: 1. Normal aging brain. No acute intracranial process. 2. Fluid/mucus in some of the paranasal sinuses consistent with acute sinusitis. Lumbar Spine CT 08/07/24 12:38 IMPRESSION: 1. Mild lumbar spondylosis. Brain MRI 08/08/24 16:41 IMPRESSION: 1. No acute intracranial process. 2. Moderate scattered calcific white matter T2 hyperintensity which within normal limits for age and consistent with chronic small vessel ischemic disease. 3. Fluid/mucus in some of the paranasal sinuses consistent with acute sinusitis. Chest X-Ray 08/11/24 07:10 Impression: Probable mild bibasilar pulmonary edema with minimal right pleural effusion. Stable cardiomegaly. Possible underlying COPD. Chest CT 08/11/24 14:08 IMPRESSION: 1. Small pleural effusions, right worse than left. 2. Ectasia of ascending aorta measuring 4.4 cm. Labs Labs: Laboratory Tests 08/13/24 09:17 08/13/24 09:17
--- NOTE | 2024-08-14 16:30 | P.PNIM_ITS ---
Progress Note: A&P Assessment and Plan (1) Acute respiratory failure with hypoxia: Code(s): J96.01 - Acute respiratory failure with hypoxia Status: Acute Assessment and Plan: CT chest reviewed Currently on dialysis MWF BiPAP Continue to wean (2) RSV infection: Qualifiers: RSV infection type: unspecified Qualified Code(s): B33.8 - Other specified viral diseases Code(s): B33.8 - Other specified viral diseases Status: Acute Assessment and Plan: * Respiratory panel positive for RSV * Continue DuoNebs, Tessalon Perles, Mucinex * initial Chest x-ray negative * Reviewed CT and CXR * S/p Prednisone (3) ESRD (end stage renal disease) on dialysis: Code(s): N18.6 - End stage renal disease; Z99.2 - Dependence on renal dialysis Status: Chronic Assessment and Plan: continue dialysis Nephrology following (4) Type 2 diabetes mellitus: Qualifiers: Diabetes mellitus 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 insulin use: without senior living use Diabetes mellitus complication status: without complication Qualified Code(s): E11.9 - Type 2 diabetes mellitus without complications Code(s): E11.9 - Type 2 diabetes mellitus without complications Status: Chronic Assessment and Plan: * Blood sugars ranging 139-284 * Hgb A1C 7.1 * Accu checks AC/HS * Low-dose SSI ordered * Hold Lantus 35 units at bedtime * Will hold Victoza and sitagliptin while inpatient * hypoglycemic protocol in place * Diabetic diet ordered * monitor (5) Atrial fibrillation: Qualifiers: Atrial fibrillation type: unspecified Qualified Code(s): I48.91 - Unspecified atrial fibrillation Code(s): I48.91 - Unspecified atrial fibrillation Status: Chronic Assessment and Plan: * EKG showing AFib rate controlled * Not currently on any home medications??? * investigate (6) Anemia: Qualifiers: Anemia type: unspecified type Qualified Code(s): D64.9 - Anemia, unspecified Code(s): D64.9 - Anemia, unspecified Status: Chronic Assessment and Plan: Likely secondary to her end-stage renal disease * Hemoglobin 9.1 (7) Hypertension: Qualifiers: Hypertension type: unspecified Qualified Code(s): I10 - Essential (primary) hypertension Code(s): I10 - Essential (primary) hypertension Status: Chronic Assessment and Plan: * Low blood pressures resolved on Coreg monitor and adjust stable (8) Metabolic encephalopathy: Code(s): G93.41 - Metabolic encephalopathy Status: Acute Assessment and Plan: Currently patient on dialysis ABG shows hypercapnia BiPAP settings 06/13 Will consult pulmonology Temporary BiPAP to eliminate CO2 No evidence of receiving anxiolytics or sedatives CT head negative MRI brain reviewed TSH normal, RPR negative, Vitamin B12 normal. Possibly fluid overload vs toxin versus infectious process vs underlying pulmonary disease As per her daughter,recently diagnosed hepatitis B infection Hepatitis B panel shows no acute infection but evidence of exposure Needs to follow-up with GI as outpatient resolved patient now alert and oriented at bedside Daughter refused Neurology eval (9) Hepatitis B: Code(s): B19.10 - Unspecified viral hepatitis B without hepatic coma Status: Acute Assessment and Plan: Reviewed Hepatitis B panel (10) Pneumonia: Code(s): J18.9 - Pneumonia, unspecified organism Status: Acute Assessment and Plan: Ct chest no pnuemonia pnuemonia ruled out stopp abx Plan Diabetic neuropathy HOld Venlafaxine monitor DVT prophylaxis on Sq Heparin PT/OT recommends SNF awaiting placement Subjective Date/time seen: 08/14/24 16:30 Interval history: Comfortable at bedside Awaiting SNF placement Review of Systems Review of Systems: All systems reviewed & are unremarkable except as noted in HPI and below Constitutional: Constitutional: Reports as per HPI and Reports no additional constitutional complaints Eyes: Eyes: Reports as per HPI and Reports no additional eye complaints ENT: Reports system reviewed and no additional complaints, except as documented and Reports as per HPI Cardiovascular: Cardiovascular: Reports as per HPI and Reports no additional cardiovascular complaints Respiratory: Respiratory: Reports as per HPI and Reports no additional respiratory complaints Gastrointestinal: Gastrointestinal: Reports as per HPI and Reports no additional gastrointestinal complaints Genitourinary: Genitourinary: Reports no additional female genitourinary complaints and Reports as per HPI Musculoskeletal: Musculoskeletal: Reports no additional musculoskeletal complaints and Reports as per HPI Integumentary/Breasts: Skin/Breast: Reports system reviewed and no additional complaints, except as docu and Reports as per HPI Neurologic: Reports system reviewed and no additional complaints, except as documented and Reports as per HPI Psychiatric: Psychiatric: Reports no additional psychiatric complaints and Reports as per HPI Exam Narrative: General: In no acute distress Cardiac: Normal S1 and S2. No murmur, gallops or friction rubs, peripheral pulses intact. Respiratory: Rhonchi with mild expiratory wheezing bilaterally---R>L, , on 1L NC Gastrointestinal: soft, non-distended, non-tender, normoactive bowel sounds. :anuric on HD M-W-F Neuro: Alert and oriented x4 Const: General: comfortable and no acute distress Other: Elderly, female, ill-appearing HENMT: Face/Nose/Sinus: Normal nares present Mouth: Yes moist mucous membranes Eyes: General: appearance normal, both eyes and all related structures Scl era: sclerae normal Pupils: Equal, round and reactive pupils present EOM: EOMs intact bilaterally Resp: Other: Bibasilar crackles, + tachypnea without increased work of breathing Cardio: Rate: regular rate Rhythm: regular rhythm Other: S1-S2 present without murmur, rub, ectopy GI: Other: Abdomen soft, nondistended, nontender. Skin: General skin exam: normal color and no rashes or lesions noted Wounds: no wounds Neuro: Cranial nerves: Yes Equal, round and reactive pupils present Speech: normal speech Motor exam (neuro): 5/5 motor strength present throughout Sensory Exam: normal sensation Other: S1-S2 present without murmur, rub, ectopy Extrem: General: normal exam except as noted Other: +thrill and bruit to RUE fistula. old fistula to LUE. Psych: Mental Status: mental status grossly normal Affect: normal affect Other: Good insight and judgment, pleasant Objective Data Vital Signs Vital Signs: Vital Signs - 24 hr 08/13/24 18:00 08/13/24 20:00 08/13/24 20:22 Temperature Pulse Rate 74 Respiratory Rate Blood Pressure Pulse Oximetry 98 Oxygen Delivery Room Air Room Air 08/13/24 20:22 08/13/24 20:32 08/13/24 20:55 Temperature Pulse Rate 61 64 60 Respiratory Rate 16 16 Blood Pressure Pulse Oximetry Oxygen Delivery 08/13/24 23:29 08/14/24 02:04 08/14/24 08:00 Temperature 98.6 F 99.2 F Pulse Rate 57 L 52 L 57 L Respiratory Rate 24 H 16 22 H Blood Pressure 137/99 H 140/38 L Pulse Oximetry 100 100 Oxygen Delivery 08/14/24 08:40 08/14/24 08:59 08/14/24 08:59 Temperature Pulse Rate 69 63 Respiratory Rate 16 Blood Pressure Pulse Oximetry 97 Oxygen Delivery Room Air 08/14/24 09:10 08/14/24 10:37 08/14/24 12:00 Temperature 98.7 F Pulse Rate 62 94 Respiratory Rate 16 24 H Blood Pressure 98/50 L Pulse Oximetry 99 Oxygen Delivery Room Air 08/14/24 13:54 08/14/24 14:06 Temperature Pulse Rate 64 64 Respiratory Rate 16 16 Blood Pressure Pulse Oximetry Oxygen Delivery Intake/Output Intake/Output: Intake & Output 08/11/24 08/12/24 08/13/24 08/14/24 23:59 23:59 23:59 23:59 Intake Total 195 229 2722 730 Output Total 1999 07 774 Balance -1615 479 513 730 Meds/Results Medications: Active Medications Generic Name Dose Route Start Last Admin Trade Name Freq PRN Reason Stop Dose Admin Acetaminophen 325 mg 08/10/24 00:39 08/14/24 12:23 Acetaminophen 325 Mg Tablet BY MOUTH 325 mg Q4H PRN Administration Pain 1-3 Albuterol/Ipratropium 3 ml 08/09/24 20:00 08/14/24 13:53 Ipratropium 0.5 Mg/Albuterol Sulfate 2.5 Mg Ampul.Neb 3 Ml INHALATION 3 ml Q6HRT THERESE Administration Benzocaine 1 lozenge 07/30/24 18:22 07/30/24 21:28 Benzocaine/Menthol (*Bkc) 18 Ea Lozenge PO 1 lozenge PRN PRN Administration Sore Throat Benzonatate 100 mg 07/30/24 18:22 07/30/24 21:27 Benzonatate 100 Mg Capsule PO 100 mg TID PRN Administration Cough Calcium Carbonate 600 mg 08/01/24 17:30 08/14/24 12:24 Calcium Carbonate (Tums) 500 Mg (200 Mg Elemental) PO 600 mg TID THERESE Administration Carvedilol 3.125 mg 08/02/24 21:00 08/14/24 08:40 Carvedilol 3.125 Mg Tablet PO 3.125 mg Q12HR THERESE Administration Cyanocobalamin 500 mcg 07/31/24 09:00 08/14/24 08:41 Cyanocobalamin 500 Mcg Tablet PO 500 mcg DAILY THERESE Administration Dextrose 12.5 gm 07/30/24 18:29 Dextrose 50% 25 Gm/50 Ml Syringe IV PUSH PRN PRN Hypoglycemia Protocol Dicyclomine HCl 10 mg 07/30/24 21:35 Dicyclomine Hcl 10 Mg Capsule PO BID PRN Abdominal Pain Ergocalciferol 50,000 units 08/02/24 09:00 08/09/24 10:17 Ergocalciferol 50,000 Units Capsule PO 50,000 units WEEKLY THERESE Administration Glucagon 1 mg 07/30/24 18:29 Glucagon For Inj 1 Mg Vial IM PRN PRN Hypoglycemia Protocol Glucose 15 gm 07/30/24 18:29 Glucose Oral Gel 15 Gm Of Glucse In 37.5 Gm Tube PO PRN PRN Hypoglycemia Protocol Guaifenesin 600 mg 08/12/24 10:52 Guaifenesin 12 Hr 600 Mg Tabcr PO Q12HR PRN Cough Heparin Sodium (Porcine) 5,000 units 08/03/24 14:00 08/14/24 06:43 Heparin Sodium 5,000 Units/Ml Vial SUB-Q 5,000 units Q8HR THERESE Administration Dextrose 1,000 mls @ 100 mls/hr 07/30/24 18:29 Dextrose 5% 1,000 Ml IVPB PRN PRN Hypoglycemia Protocol Albumin Human 50 mls @ 999 mls/hr 08/01/24 07:00 08/06/24 13:46 Albutein IVPB 08/31/24 06:59 999 mls/hr Q10M PRN Administration HYPOTENSION Insulin Aspart 1 - 2 units 08/01/24 22:20 08/08/24 22:26 Insulin Aspart (*Bkc) 100 Units/Ml SUB-Q 1 units HS [facility] Administration Protocol Insulin Aspart 2 - 5 units 08/14/24 08:00 08/14/24 12:24 Insulin Aspart (*Bkc) 100 Units/Ml SUB-Q 4 units TIDWM [facility] Administration Protocol Insulin Glargine 35 units 08/02/24 21:00 08/07/24 23:21 Insulin Glargine (*Bkc) 100 Units/Ml SUB-Q Not Given HS [facility] Miconazole Nitrate 1 applic 08/06/24 11:52 Miconazole Nitrate 2% Cream 30 Gm Tube TOPICAL Q12HR PRN maceration * Home Med * 1.8 mg 07/31/24 21:00 Liraglutide [Victoza SUB-Q 08/30/24 20:59 2-Agustín] 0.6 Mg/0.1 HS THERESE Ml (18 Mg/3 Ml) Pen Injector Pantoprazole Sodium 40 mg 07/31/24 09:00 08/14/24 08:41 Pantoprazole 40 Mg Tablet PO 40 mg Q12HR THERESE Administration Sevelamer Carbonate 800 mg 07/31/24 08:00 08/14/24 12:24 Sevelamer Carbonate 800 Mg Tablet PO 800 mg TIDWM THERESE Administration Simethicone 80 mg 08/13/24 21:00 08/14/24 12:23 Simethicone 80 Mg Tab.Chew PO 80 mg QID THERESE Administration Sitagliptin Phosphate 100 mg 07/31/24 09:00 07/31/24 08:56 Sitagliptin Phosphate 100 Mg Tablet PO 100 mg DAILY THERESE Administration Sodium Chloride 1 spray 08/10/24 19:11 Saline 0.65% Steve Soln 44 Ml Btl NASAL Q4HR PRN Congestion Venlafaxine HCl 37.5 mg 08/03/24 11:50 08/09/24 10:17 Venlafaxine Hcl Xr 37.5 Mg Cap PO Not Given DAILY@0800 [facility] Vitamin B Complex/Folic Acid 1 cap 07/31/24 09:00 08/14/24 08:41 Vitamin B Cmplx/Vit C/Folic Ac 1 Capsule PO 1 cap DAILY THERESE Administration Radiology Results: ITS Impressions Chest CTA 08/06/24 08:36 IMPRESSION: 1. No pulmonary embolism. Sensitivity decreased in the smaller subsegmental pulmonary arteries due to respiratory motion. 2. Right middle and lower lobe with fluid and mucus in the bronchi consistent with pneumonia. 3. Small bilateral pleural effusions. 4. 4.3 cm fusiform ascending thoracic aortic aneurysm. 5. 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 Head CT 08/07/24 12:33 IMPRESSION: 1. Normal aging brain. No acute intracranial process. 2. Fluid/mucus in some of the paranasal sinuses consistent with acute sinusitis. Lumbar Spine CT 08/07/24 12:38 IMPRESSION: 1. Mild lumbar spondylosis. Brain MRI 08/08/24 16:41 IMPRESSION: 1. No acute intracranial process. 2. Moderate scattered calcific white matter T2 hyperintensity which within normal limits for age and consistent with chronic small vessel ischemic disease. 3. Fluid/mucus in some of the paranasal sinuses consistent with acute sinusitis. Chest X-Ray 08/11/24 07:10 Impression: Probable mild bibasilar pulmonary edema with minimal right pleural effusion. Stable cardiomegaly. Possible underlying COPD. Chest CT 08/11/24 14:08 IMPRESSION: 1. Small pleural effusions, right worse than left. 2. Ectasia of ascending aorta measuring 4.4 cm. Labs Labs: Laboratory Results - last 24 hr 08/11/24 08/13/24 08/13/24 05:40 14:36 17:26 POC Capillary Glucose 156 H 312 H Nasal RSV Type A (PCR) Detected A Nasal RSV Type B (PCR) Not detected Chlamy pneumoniae PCR Not detected Adenovirus DNA Not detected Human Bocavirus (LUIS) Not detected Coronavirus Type OC43 Not detected Coronavirus Type HKU1 Not detected Coronavirus Type 229E Not detected Coronavirus Type NL63 Not detected Human Metapneumovir PCR Not detected Influenza A (PCR) Not detected Influenza A (H1) RNA Not detected Influenza A (H3) PCR Not detected M. pneumoniae DNA Not detected Parainfluenza PCR Not detected Parainfluenza 2 (PCR) Not detected Parainfluenza 3 RNA (PCR) Not detected Parainfluenza 4 (PCR) Not detected Rhino/Enterovirus (LUIS) Not detected SARS-CoV-2 RNA (RT-PCR) Not detected Influenza Type B (PCR) Not detected Misc Test Comment see note 08/13/24 08/14/24 08/14/24 20:13 07:30 11:50 POC Capillary Glucose 349 H 250 H 313 H Nasal RSV Type A (PCR) Nasal RSV Type B (PCR) Chlamy pneumoniae PCR Adenovirus DNA Human Bocavirus (LUIS) Coronavirus Type OC43 Coronavirus Type HKU1 Coronavirus Type 229E Coronavirus Type NL63 Human Metapneumovir PCR Influenza A (PCR) Influenza A (H1) RNA Influenza A (H3) PCR M. pneumoniae DNA Parainfluenza PCR Parainfluenza 2 (PCR) Parainfluenza 3 RNA (PCR) Parainfluenza 4 (PCR) Rhino/Enterovirus (LUIS) SARS-CoV-2 RNA (RT-PCR) Influenza Type B (PCR) Misc Test Comment Quality VTE Prophylaxis VTE prophylaxis: mechanical ordered
[2024-08-14 16:43] LABS: Glucose Point of Care 316 mg/dl (65-105)
--- NOTE | 2024-08-14 17:57 | PC.NURSE ---
Spoke with Dr Rosario about PT POC glucose today. Recevied order to start 15units lantus HS starting tonight with intention to titrate if needed. Order read back and verified.
[2024-08-14] MEDS: INSULIN GLARGINE (*BKC) 100 UNITS/ML 15 UNITS SUB-Q (20:28)
[2024-08-14 20:49] LABS: Glucose Point of Care 353 mg/dl (65-105)
--- NOTE | 2024-08-14 21:28 | PC.NURSE ---
This patient, Shasta Obando, was transferred to [facility] on 08/14/24 at 2128. Personal belongings sent with patient. Report given to ABENA Cruz. Appropriate documentation sent with patient.
[2024-08-15] VITALS (31 sets, daily range): BP systolic 113–135; BP diastolic 43–66; PULSE 60–79; RESP 18–20; TEMP 35.5–37.4; O2SAT 90–100
[2024-08-15] MEDS: HEPARIN SODIUM 5,000 UNITS/ML VIAL 5000 UNITS SUB-Q (05:51)
[2024-08-15 07:54] LABS: Glucose Point of Care 231 mg/dl (65-105)
[2024-08-15 08:46] LABS: Immature Platelet Fraction Pct 5.9 % (0.9-11.2); Mean Platelet Volume 11.5 fl (7.4-10.4); Platelet Count Result 93 k/mm3 (150-375)
[2024-08-15] MEDS: INSULIN ASPART (*BKC) 100 UNITS/ML SUB-Q ×2 (08:48→17:14)
[2024-08-15] MEDS: IPRATROPIUM 0.5 MG/ALBUTEROL SULFATE 2.5 MG AMPUL.NEB 3 ML INHALATION ×3 (08:51→21:34)
[2024-08-15] MEDS: ACETAMINOPHEN 325 MG TABLET BY MOUTH ×3 (08:52→18:47)
--- NOTE | 2024-08-15 09:03 | PC.NURSE ---
pt to dialysis via bed
[2024-08-15] MEDS: ALBUMIN HUMAN 25% 25 GM/100 ML 100 ML IVPB (09:31)
--- NOTE | 2024-08-15 09:45 | P.PNNP_ITS ---
Progress Note: A&P Assessment and Plan (1) End stage renal disease: Code(s): N18.6 - End stage renal disease Status: Chronic Assessment and Plan: * HD today * continue M/W/F dialysis schedule while hospitalized * follow electrolytes, volume status, and clearance (2) Altered mental status: Code(s): R41.82 - Altered mental status, unspecified Status: Acute Assessment and Plan: * significant improvement if not resolved * evaluation to date noted: * CT of head negative * off all sedating medication * MRI of brain unremarkable * TSH/RPR/Vitamin B12 okay * blood gas done on 08/09 with evidence of CO2 retention (though to be secondary to fluid overload) * follow mentation (3) Hypoxia: Code(s): R09.02 - Hypoxemia Status: Acute Assessment and Plan: * resolved - on room air * as noted by EMS on admission * 80% oxygen saturations on room air * improved with 2L oxygen by nasal cannula * presumably due to mild pulmonary edema and RSV (as noted on admission) * s/p DUF with 3L fluid on 08/10 and 2L with HD on 08/11 * continue supportive therapy (4) RSV infection: Qualifiers: RSV infection type: unspecified Qualified Code(s): B33.8 - Other specified viral diseases Code(s): B33.8 - Other specified viral diseases Status: Acute Assessment and Plan: * tested positive for RSV on 07/30 in ER * reported onset of symptoms on 07/28 * continues supportive care: * Mucinex * Tessalon Perles p.r.n. * DuoNeb as needed * Tylenol (5) Atrial fibrillation: Qualifiers: Atrial fibrillation type: unspecified Qualified Code(s): I48.91 - Unspecified atrial fibrillation Code(s): I48.91 - Unspecified atrial fibrillation Status: Chronic Assessment and Plan: * paroxysmal * rate controlled * not on anticoagulation (due to hx of GI bleeding versus fall risk?) (6) Anemia: Qualifiers: Anemia type: unspecified type Qualified Code(s): D64.9 - Anemia, unspecified Code(s): D64.9 - Anemia, unspecified Status: Chronic Assessment and Plan: * related to ESRD * Epogen with HD * follow trend of H/H (7) Hypertension: Qualifiers: Hypertension type: unspecified Qualified Code(s): I10 - Essential (primary) hypertension Code(s): I10 - Essential (primary) hypertension Status: Chronic Assessment and Plan: * reasonable control * follow hemodynamics (8) Type 2 diabetes mellitus: 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 Will continue to follow. L Subjective Date/time seen: 08/15/24 09:45 Interval history: Follow-up for end stage renal disease on hemodialysis. Tolerating dialysis treatment at the time of my visit (seen on HD at 9:35AM): resting comfortably up until I woke her up; no apparent distress noted; no other issues/events overnight or earlier this morning; feels fairly well in general. Exam 2 Narrative: General: elderly female in NAD Heart: normal S1 and S2; no rub Lungs: clear anteriorly; decreased at bases Abdomen: soft, nontender, nondistended, positive bowel sounds Extremities: no cyanosis or clubbing; no edema Skin: warm and dry Objective Data Vital Signs Vital Signs: Vital Signs Temp Pulse Resp BP Pulse Ox O2 Del Method 08/15/24 09:45 70 126/47 L 08/15/24 09:30 74 126/52 L 08/15/24 09:21 70 117/47 L 08/15/24 09:05 98.4 F 71 20 132/49 L 100 08/15/24 08:58 69 18 08/15/24 08:51 67 18 08/15/24 08:51 100 Room Air 08/15/24 08:45 Room Air 08/15/24 08:00 98.3 F 66 20 130/66 100 08/15/24 00:00 98.8 F 64 18 121/53 L 90 08/14/24 21:01 62 17 08/14/24 20:51 62 17 08/14/24 20:27 60 08/14/24 20:00 Room Air 08/14/24 19:53 98.5 F 65 20 122/47 L 100 Intake/Output Intake/Output: Intake & Output 08/12/24 08/13/24 08/14/24 08/15/24 23:59 23:59 23:59 23:59 Intake Total 480 1260 850 240 Output Total 1 774 0 2500 Balance 479 486 850 -8730 Meds/Results Medications: Active Medications Generic Name Dose Route Start Last Admin Trade Name Freq PRN Reason Stop Dose Admin Acetaminophen 325 mg 08/10/24 00:39 08/15/24 14:25 Acetaminophen 325 Mg Tablet BY MOUTH 325 mg Q4H PRN Administration Pain 1-3 Albuterol/Ipratropium 3 ml 08/09/24 20:00 08/15/24 14:39 Ipratropium 0.5 Mg/Albuterol Sulfate 2.5 Mg Ampul.Neb 3 Ml INHALATION 3 ml Q6HRT THERESE Administration Benzocaine 1 lozenge 07/30/24 18:22 07/30/24 21:28 Benzocaine/Menthol (*Bkc) 18 Ea Lozenge PO 1 lozenge PRN PRN Administration Sore Throat Benzonatate 100 mg 07/30/24 18:22 07/30/24 21:27 Benzonatate 100 Mg Capsule PO 100 mg TID PRN Administration Cough Calcium Carbonate 600 mg 08/01/24 17:30 08/15/24 17:14 Calcium Carbonate (Tums) 500 Mg (200 Mg Elemental) PO 600 mg TID THERESE Administration Carvedilol 3.125 mg 08/02/24 21:00 08/15/24 14:25 Carvedilol 3.125 Mg Tablet PO 3.125 mg Q12HR THERESE Administration Cyanocobalamin 500 mcg 07/31/24 09:00 08/15/24 14:25 Cyanocobalamin 500 Mcg Tablet PO 500 mcg DAILY THERESE Administration Dextrose 12.5 gm 07/30/24 18:29 Dextrose 50% 25 Gm/50 Ml Syringe IV PUSH PRN PRN Hypoglycemia Protocol Dicyclomine HCl 10 mg 07/30/24 21:35 Dicyclomine Hcl 10 Mg Capsule PO BID PRN Abdominal Pain Epoetin Son-epbx 10,000 units 08/15/24 19:33 08/15/24 12:50 Epoetin Son-Epbx 10,000 Units/Ml Vial IV PUSH 08/15/24 19:34 10,000 units ONCE ONE Administration Ergocalciferol 50,000 units 08/02/24 09:00 08/09/24 10:17 Ergocalciferol 50,000 Units Capsule PO 50,000 units WEEKLY THERESE Administration Glucagon 1 mg 07/30/24 18:29 Glucagon For Inj 1 Mg Vial IM PRN PRN Hypoglycemia Protocol Glucose 15 gm 07/30/24 18:29 Glucose Oral Gel 15 Gm Of Glucse In 37.5 Gm Tube PO PRN PRN Hypoglycemia Protocol Guaifenesin 600 mg 08/12/24 10:52 08/15/24 14:24 Guaifenesin 12 Hr 600 Mg Tabcr PO 600 mg Q12HR PRN Administration Cough Dextrose 1,000 mls @ 100 mls/hr 07/30/24 18:29 Dextrose 5% 1,000 Ml IVPB PRN PRN Hypoglycemia Protocol Albumin Human 50 mls @ 999 mls/hr 08/01/24 07:00 08/06/24 13:46 Albutein IVPB 08/31/24 06:59 999 mls/hr Q10M PRN Administration HYPOTENSION Insulin Aspart 1 - 2 units 08/01/24 22:20 08/08/24 22:26 Insulin Aspart (*Bkc) 100 Units/Ml SUB-Q 1 units HS [facility] Administration Protocol Insulin Aspart 2 - 5 units 08/14/24 08:00 08/15/24 17:14 Insulin Aspart (*Bkc) 100 Units/Ml SUB-Q 3 units TIDWM [facility] Administration Protocol Insulin Glargine 35 units 08/02/24 21:00 08/07/24 23:21 Insulin Glargine (*Bkc) 100 Units/Ml SUB-Q Not Given [facility] Insulin Glargine 15 units 08/14/24 21:00 08/14/24 20:28 Insulin Glargine (*Bkc) 100 Units/Ml SUB-Q 15 units HS [facility] Administration Miconazole Nitrate 1 applic 08/06/24 11:52 Miconazole Nitrate 2% Cream 30 Gm Tube TOPICAL Q12HR PRN maceration * Home Med * 1.8 mg 07/31/24 21:00 Liraglutide [Victoza SUB-Q 08/30/24 20:59 2-Agustín] 0.6 Mg/0.1 HS THERESE Ml (18 Mg/3 Ml) Pen Injector Pantoprazole Sodium 40 mg 07/31/24 09:00 08/15/24 14:25 Pantoprazole 40 Mg Tablet PO 40 mg Q12HR THERESE Administration Sevelamer Carbonate 800 mg 07/31/24 08:00 08/14/24 16:30 Sevelamer Carbonate 800 Mg Tablet PO 800 mg TIDWM THERESE Administration Simethicone 80 mg 08/13/24 21:00 08/15/24 17:14 Simethicone 80 Mg Tab.Chew PO 80 mg QID THERESE Administration Sitagliptin Phosphate 100 mg 07/31/24 09:00 07/31/24 08:56 Sitagliptin Phosphate 100 Mg Tablet PO 100 mg DAILY THERESE Administration Sodium Chloride 1 spray 08/10/24 19:11 Saline 0.65% Steve Soln 44 Ml Btl NASAL Q4HR PRN Congestion Venlafaxine HCl 37.5 mg 08/03/24 11:50 08/09/24 10:17 Venlafaxine Hcl Xr 37.5 Mg Cap PO Not Given DAILY@0800 THERESE Vitamin B Complex/Folic Acid 1 cap 07/31/24 09:00 08/15/24 14:24 Vitamin B Cmplx/Vit C/Folic Ac 1 Capsule PO 1 cap DAILY THERESE Administration Radiology Results: ITS Impressions Chest CTA 08/06/24 08:36 IMPRESSION: 1. No pulmonary embolism. Sensitivity decreased in the smaller subsegmental pulmonary arteries due to respiratory motion. 2. Right middle and lower lobe with fluid and mucus in the bronchi consistent with pneumonia. 3. Small bilateral pleural effusions. 4. 4.3 cm fusiform ascending thoracic aortic aneurysm. 5. 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 Head CT 08/07/24 12:33 IMPRESSION: 1. Normal aging brain. No acute intracranial process. 2. Fluid/mucus in some of the paranasal sinuses consistent with acute sinusitis. Lumbar Spine CT 08/07/24 12:38 IMPRESSION: 1. Mild lumbar spondylosis. Brain MRI 08/08/24 16:41 IMPRESSION: 1. No acute intracranial process. 2. Moderate scattered calcific white matter T2 hyperintensity which within normal limits for age and consistent with chronic small vessel ischemic disease. 3. Fluid/mucus in some of the paranasal sinuses consistent with acute sinusitis. Chest X-Ray 08/11/24 07:10 Impression: Probable mild bibasilar pulmonary edema with minimal right pleural effusion. Stable cardiomegaly. Possible underlying COPD. Chest CT 08/11/24 14:08 IMPRESSION: 1. Small pleural effusions, right worse than left. 2. Ectasia of ascending aorta measuring 4.4 cm. Labs Labs: Laboratory Tests 08/15/24 08:28 08/13/24 09:17 Microbiology 08/09/24 10:11 Blood Blood Culture - Final 08/09/24 10:11 Blood Blood Culture - Final
--- NOTE | 2024-08-15 11:32 | PCNFU ---
Nutrition Follow-Up Complete: Inadequate Oral Intake as related to RSV as evidenced by poor po intake. Adequate Intake of at least 75% of meals. - Progressing with intakes 50-100% last 48 hours Goal: Pt current nutrition is Renal diet, soft & bite size L6, Alexander BID (90 kcal, 2.5 g protein) and Nepro BID (420 kcal, 19 g protein). Nutrition recommendation: No new recommendations. Continue current nutrition care plan and orders. Agree with orders Last recorded weight is 52.3 kg. Down from 56.8 kg at admission Bowel Motility: Last BM +1 08/12/24 Labs Reviewed: No labs since 08/13/24 Meds Noted: Novolog, lantus, januvia, protonix, Vit B12 Skin: Stage 3 R buttock, Stage 3 L buttock, DTI R heel Additional Notes: Intakes are better. Awaiting SNF placement. Dialysis MWF Will monitor, weight , labs, skin, oral intake, meds every 5 days.
--- NOTE | 2024-08-15 12:49 | P.PNIM_ITS ---
Progress Note: A&P Assessment and Plan (1) Acute respiratory failure with hypoxia: Code(s): J96.01 - Acute respiratory failure with hypoxia Status: Acute Assessment and Plan: CT chest reviewed Currently on dialysis MWF BiPAP Continue to wean (2) RSV infection: Qualifiers: RSV infection type: unspecified Qualified Code(s): B33.8 - Other specified viral diseases Code(s): B33.8 - Other specified viral diseases Status: Acute Assessment and Plan: * Respiratory panel positive for RSV * Continue DuoNebs, Tessalon Perles, Mucinex * initial Chest x-ray negative * Reviewed CT and CXR * S/p Prednisone (3) ESRD (end stage renal disease) on dialysis: Code(s): N18.6 - End stage renal disease; Z99.2 - Dependence on renal dialysis Status: Chronic Assessment and Plan: continue dialysis Nephrology following (4) Type 2 diabetes mellitus: Qualifiers: Diabetes mellitus 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 insulin use: without care home use Diabetes mellitus complication status: without complication Qualified Code(s): E11.9 - Type 2 diabetes mellitus without complications Code(s): E11.9 - Type 2 diabetes mellitus without complications Status: Chronic Assessment and Plan: * Blood sugars ranging 139-284 * Hgb A1C 7.1 * Accu checks AC/HS * Low-dose SSI ordered * Hold Lantus 35 units at bedtime * Will hold Victoza and sitagliptin while inpatient * hypoglycemic protocol in place * Diabetic diet ordered * monitor (5) Atrial fibrillation: Qualifiers: Atrial fibrillation type: unspecified Qualified Code(s): I48.91 - Unspecified atrial fibrillation Code(s): I48.91 - Unspecified atrial fibrillation Status: Chronic Assessment and Plan: * EKG showing AFib rate controlled * Not currently on any home medications??? * investigate (6) Anemia: Qualifiers: Anemia type: unspecified type Qualified Code(s): D64.9 - Anemia, unspecified Code(s): D64.9 - Anemia, unspecified Status: Chronic Assessment and Plan: Likely secondary to her end-stage renal disease * Hemoglobin 9.1 (7) Hypertension: Qualifiers: Hypertension type: unspecified Qualified Code(s): I10 - Essential (primary) hypertension Code(s): I10 - Essential (primary) hypertension Status: Chronic Assessment and Plan: * Low blood pressures resolved on Coreg monitor and adjust stable (8) Metabolic encephalopathy: Code(s): G93.41 - Metabolic encephalopathy Status: Acute Assessment and Plan: Currently patient on dialysis ABG shows hypercapnia BiPAP settings 06/13 Will consult pulmonology Temporary BiPAP to eliminate CO2 No evidence of receiving anxiolytics or sedatives CT head negative MRI brain reviewed TSH normal, RPR negative, Vitamin B12 normal. Possibly fluid overload vs toxin versus infectious process vs underlying pulmonary disease As per her daughter,recently diagnosed hepatitis B infection Hepatitis B panel shows no acute infection but evidence of exposure Needs to follow-up with GI as outpatient resolved patient now alert and oriented at bedside Daughter refused Neurology eval (9) Hepatitis B: Code(s): B19.10 - Unspecified viral hepatitis B without hepatic coma Status: Acute Assessment and Plan: Reviewed Hepatitis B panel (10) Pneumonia: Code(s): J18.9 - Pneumonia, unspecified organism Status: Acute Assessment and Plan: Ct chest no pnuemonia pnuemonia ruled out stopp abx Plan Diabetic neuropathy HOld Venlafaxine monitor DVT prophylaxis on Sq Heparin PT/OT recommends Rehab awaiting placement Subjective Date/time seen: 08/15/24 12:49 Interval history: Comfortable at bedside Awaiting rehab placement Review of Systems Review of Systems: All systems reviewed & are unremarkable except as noted in HPI and below Constitutional: Constitutional: Reports as per HPI and Reports no additional constitutional complaints Eyes: Eyes: Reports as per HPI and Reports no additional eye complaints ENT: Reports system reviewed and no additional complaints, except as documented and Reports as per HPI Cardiovascular: Cardiovascular: Reports as per HPI and Reports no additional cardiovascular complaints Respiratory: Respiratory: Reports as per HPI and Reports no additional respiratory complaints Gastrointestinal: Gastrointestinal: Reports as per HPI and Reports no additional gastrointestinal complaints Genitourinary: Genitourinary: Reports no additional female genitourinary compl aints and Reports as per HPI Musculoskeletal: Musculoskeletal: Reports no additional musculoskeletal complaints and Reports as per HPI Integumentary/Breasts: Skin/Breast: Reports system reviewed and no additional complaints, except as docu and Reports as per HPI Neurologic: Reports system reviewed and no additional complaints, except as documented and Reports as per HPI Psychiatric: Psychiatric: Reports no additional psychiatric complaints and Reports as per HPI Exam Narrative: General: In no acute distress Cardiac: Normal S1 and S2. No murmur, gallops or friction rubs, peripheral pulses intact. Respiratory: Rhonchi with mild expiratory wheezing bilaterally---R>L, , on 1L NC Gastrointestinal: soft, non-distended, non-tender, normoactive bowel sounds. :anuric on HD M-W-F Neuro: Alert and oriented x4 Const: General: comfortable and no acute distress Other: Elderly, female, ill-appearing HENMT: Face/Nose/Sinus: Normal nares present Mouth: Yes moist mucous membranes Eyes: General: appearance normal, both eyes and all related structures Sclera: sclerae normal Pupils: Equal, round and reactive pupils present EOM: EOMs intact bilaterally Resp: Other: Bibasilar crackles, + tachypnea without increased work of breathing Cardio: Rate: regular rate Rhythm: regular rhythm Other: S1-S2 present without murmur, rub, ectopy GI: Other: Abdomen soft, nondistended, nontender. Skin: General skin exam: normal color and no rashes or lesions noted Wounds: no wounds Neuro: Cranial nerves: Yes Equal, round and reactive pupils present Speech: normal speech Motor exam (neuro): 5/5 motor strength present throughout Sensory Exam: normal sensation Other: S1-S2 present without murmur, rub, ectopy Extrem: General: normal exam except as noted Other: +thrill and bruit to RUE fistula. old fistula to LUE. Psych: Mental Status: mental status grossly normal Affect: normal affect Other: Good insight and judgment, pleasant Objective Data Vital Signs Vital Signs: Vital Signs - 24 hr 08/14/24 13:54 08/14/24 14:06 08/14/24 16:00 Temperature 98.4 F Pulse Rate 64 64 48 L Respiratory Rate 16 16 16 Blood Pressure 134/44 L Pulse Oximetry 100 Oxygen Delivery 08/14/24 19:53 08/14/24 20:00 08/14/24 20:27 Temperature 98.5 F Pulse Rate 65 60 Respiratory Rate 20 Blood Pressure 122/47 L Pulse Oximetry 100 Oxygen Delivery Room Air 08/14/24 20:51 08/14/24 21:01 08/15/24 00:00 Temperature 98.8 F Pulse Rate 62 62 64 Respiratory Rate 17 17 18 Blood Pressure 121/53 L Pulse Oximetry 90 Oxygen Delivery 08/15/24 08:00 08/15/24 08:45 08/15/24 08:51 Temperature 98.3 F Pulse Rate 66 Respiratory Rate 20 Blood Pressure 130/66 Pulse Oximetry 100 100 Oxygen Delivery Room Air Room Air 08/15/24 08:51 08/15/24 08:58 08/15/24 09:05 Temperature 98.4 F Pulse Rate 67 69 71 Respiratory Rate 18 18 20 Blood Pressure 132/49 L Pulse Oximetry 100 Oxygen Delivery 08/15/24 09:21 08/15/24 09:30 08/15/24 09:45 Temperature Pulse Rate 70 74 70 Respiratory Rate Blood Pressure 117/47 L 126/52 L 126/47 L Pulse Oximetry Oxygen Delivery 08/15/24 10:00 08/15/24 10:15 08/15/24 10:30 Temperature Pulse Rate 75 73 74 Respiratory Rate Blood Pressure 119/50 L 113/43 L 121/48 L Pulse Oximetry Oxygen Delivery 08/15/24 10:45 08/15/24 11:00 Temperature Pulse Rate 68 73 Respiratory Rate Blood Pressure 114/44 L 127/50 L Pulse Oximetry Oxygen Delivery Intake/Output Intake/Output: Intake & Output 08/12/24 08/13/24 08/14/24 08/15/24 23:59 23:59 23:59 23:59 Intake Total 480 1260 850 240 Output Total 1 774 0 0 Balance 479 486 850 240 Meds/Results Medications: Active Medications Generic Name Dose Route Start Last Admin Trade Name Freq PRN Reason Stop Dose Admin Acetaminophen 325 mg 08/10/24 00:39 08/15/24 08:52 Acetaminophen 325 Mg Tablet BY MOUTH 325 mg Q4H PRN Administration Pain 1-3 Albuterol/Ipratropium 3 ml 08/09/24 20:00 08/15/24 08:51 Ipratropium 0.5 Mg/Albuterol Sulfate 2.5 Mg Ampul.Neb 3 Ml INHALATION 3 ml Q6HRT THERESE Administration Benzocaine 1 lozenge 07/30/24 18:22 07/30/24 21:28 Benzocaine/Menthol (*Bkc) 18 Ea Lozenge PO 1 lozenge PRN PRN Administration Sore Throat Benzonatate 100 mg 07/30/24 18:22 07/30/24 21:27 Benzonatate 100 Mg Capsule PO 100 mg TID PRN Administration Cough Calcium Carbonate 600 mg 08/01/24 17:30 08/14/24 16:30 Calcium Carbonate (Tums) 500 Mg (200 Mg Elemental) PO 600 mg TID THERESE Administration Carvedilol 3.125 mg 08/02/24 21:00 08/14/24 20:27 Carvedilol 3.125 Mg Tablet PO 3.125 mg Q12HR THERESE Administration Cyanocobalamin 500 mcg 07/31/24 09:00 08/14/24 08:41 Cyanocobalamin 500 Mcg Tablet PO 500 mcg DAILY THERESE Administration Dextrose 12.5 gm 07/30/24 18:29 Dextrose 50% 25 Gm/50 Ml Syringe IV PUSH PRN PRN Hypoglycemia Protocol Dicyclomine HCl 10 mg 07/30/24 21:35 Dicyclomine Hcl 10 Mg Capsule PO BID PRN Abdominal Pain Epoetin Son-epbx 10,000 units 08/15/24 19:33 Epoetin Son-Epbx 10,000 Units/Ml Vial IV PUSH 08/15/24 19:34 ONCE ONE Ergocalciferol 50,000 units 08/02/24 09:00 08/09/24 10:17 Ergocalciferol 50,000 Units Capsule PO 50,000 units WEEKLY THERESE Administration Glucagon 1 mg 07/30/24 18:29 Glucagon For Inj 1 Mg Vial IM PRN PRN Hypoglycemia Protocol Glucose 15 gm 07/30/24 18:29 Glucose Oral Gel 15 Gm Of Glucse In 37.5 Gm Tube PO PRN PRN Hypoglycemia Protocol Guaifenesin 600 mg 08/12/24 10:52 Guaifenesin 12 Hr 600 Mg Tabcr PO Q12HR PRN Cough Heparin Sodium (Porcine) 5,000 units 08/03/24 14:00 08/15/24 05:51 Heparin Sodium 5,000 Units/Ml Vial SUB-Q 5,000 units Q8HR THERESE Administration Dextrose 1,000 mls @ 100 mls/hr 07/30/24 18:29 Dextrose 5% 1,000 Ml IVPB PRN PRN Hypoglycemia Protocol Albumin Human 50 mls @ 999 mls/hr 08/01/24 07:00 08/06/24 13:46 Albutein IVPB 08/31/24 06:59 999 mls/hr Q10M PRN Administration HYPOTENSION Insulin Aspart 1 - 2 units 08/01/24 22:20 08/08/24 22:26 Insulin Aspart (*Bkc) 100 Units/Ml SUB-Q 1 units HS [facility] Administration Protocol Insulin Aspart 2 - 5 units 08/14/24 08:00 08/15/24 08:48 Insulin Aspart (*Bkc) 100 Units/Ml SUB-Q 2 units TIDWM [facility] Administration Protocol Insulin Glargine 35 units 08/02/24 21:00 08/07/24 23:21 Insulin Glargine (*Bkc) 100 Units/Ml SUB-Q Not Given HS [facility] Insulin Glargine 15 units 08/14/24 21:00 08/14/24 20:28 Insulin Glargine (*Bkc) 100 Units/Ml SUB-Q 15 units HS [facility] Administration Miconazole Nitrate 1 applic 08/06/24 11:52 Miconazole Nitrate 2% Cream 30 Gm Tube TOPICAL Q12HR PRN maceration Miscellaneous Information 1 each 08/15/24 00:01 Today (08/15) Patient's Plt Is 93. Do You Want To Hold Heparin? XX 09/14/24 00:00 CLARIFY THERESE * Home Med * 1.8 mg 07/31/24 21:00 Liraglutide [Victoza SUB-Q 08/30/24 20:59 2-Agustín] 0.6 Mg/0.1 HS THERESE Ml (18 Mg/3 Ml) Pen Injector Pantoprazole Sodium 40 mg 07/31/24 09:00 08/14/24 20:28 Pantoprazole 40 Mg Tablet PO 40 mg Q12HR THERESE Administration Sevelamer Carbonate 800 mg 07/31/24 08:00 08/14/24 16:30 Sevelamer Carbonate 800 Mg Tablet PO 800 mg TIDWM [facility]ERESE Administration Simethicone 80 mg 08/13/24 21:00 08/14/24 20:28 Simethicone 80 Mg Tab.Chew PO 80 mg QID THERESE Administration Sitagliptin Phosphate 100 mg 07/31/24 09:00 07/31/24 08:56 Sitagliptin Phosphate 100 Mg Tablet PO 100 mg DAILY THERESE Administration Sodium Chloride 1 spray 08/10/24 19:11 Saline 0.65% Steve Soln 44 Ml Btl NASAL Q4HR PRN Congestion Venlafaxine HCl 37.5 mg 08/03/24 11:50 08/09/24 10:17 Venlafaxine Hcl Xr 37.5 Mg Cap PO Not Given DAILY@0800 [facility] Vitamin B Complex/Folic Acid 1 cap 07/31/24 09:00 08/14/24 08:41 Vitamin B Cmplx/Vit C/Folic Ac 1 Capsule PO 1 cap DAILY THERESE Administration Radiology Results: ITS Impressions Chest CTA 08/06/24 08:36 IMPRESSION: 1. No pulmonary embolism. Sensitivity decreased in the smaller subsegmental pulmonary arteries due to respiratory motion. 2. Right middle and lower lobe with fluid and mucus in the bronchi consistent with pneumonia. 3. Small bilateral pleural effusions. 4. 4.3 cm fusiform ascending thoracic aortic aneurysm. 5. 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 Head CT 08/07/24 12:33 IMPRESSION: 1. Normal aging brain. No acute intracranial process. 2. Fluid/mucus in some of the paranasal sinuses consistent with acute sinusitis. Lumbar Spine CT 08/07/24 12:38 IMPRESSION: 1. Mild lumbar spondylosis. Brain MRI 08/08/24 16:41 IMPRESSION: 1. No acute intracranial process. 2. Moderate scattered calcific white matter T2 hyperintensity which within normal limits for age and consistent with chronic small vessel ischemic disease. 3. Fluid/mucus in some of the paranasal sinuses consistent with acute sinusitis. Chest X-Ray 08/11/24 07:10 Impression: Probable mild bibasilar pulmonary edema with minimal right pleural effusion. Stable cardiomegaly. Possible underlying COPD. Chest CT 08/11/24 14:08 IMPRESSION: 1. Small pleural effusions, right worse than left. 2. Ectasia of ascending aorta measuring 4.4 cm. Labs Labs: Laboratory Results - last 24 hr 08/14/24 08/14/24 08/15/24 16:31 20:47 07:49 Plt Count MPV % Immature Plt Fraction POC Capillary Glucose 316 H 353 H 231 H 08/15/24 08:28 Plt Count 93 L MPV 11.5 H % Immature Plt Fraction 5.9 POC Capillary Glucose Quality VTE Prophylaxis VTE prophylaxis: mechanical ordered
[2024-08-15] MEDS: EPOETIN ALFA-EPBX 10,000 UNITS/ML VIAL 10000 UNITS IV PUSH (12:50)
[2024-08-15] MEDS: guaiFENesin 12 HR 600 MG TABCR PO (14:24)
[2024-08-15] MEDS: CALCIUM CARBONATE (TUMS) 500 MG (200 MG ELEMENTAL) 600 MG PO ×2 (14:24→17:14)
[2024-08-15] MEDS: VITAMIN B CMPLX/VIT C/FOLIC AC 1 CAPSULE 1 CAP PO (14:24)
[2024-08-15] MEDS: CYANOCOBALAMIN 500 MCG TABLET PO (14:25)
[2024-08-15] MEDS: PANTOPRAZOLE 40 MG TABLET PO ×2 (14:25→20:52)
[2024-08-15] MEDS: carvediloL 3.125 MG TABLET PO ×2 (14:25→20:52)
[2024-08-15] MEDS: SIMETHICONE 80 MG TAB.CHEW PO ×3 (14:33→20:52)
[2024-08-15] MEDS: POTASSIUM/PHOSPHORUS/SODIUM 1.5 GM PACKET 2 PACKET PO (15:28)
[2024-08-15 16:42] LABS: Glucose Point of Care 276 mg/dl (65-105)
[2024-08-15] MEDS: INSULIN GLARGINE (*BKC) 100 UNITS/ML 15 UNITS SUB-Q (20:51)
[2024-08-15 22:21] LABS: Glucose Point of Care 315 mg/dl (65-105)
[2024-08-15 22:48] LABS: Hepatitis B DNA PCR 1.92 Log IU/mL (NOT DETECTED); Hepatitis B DNA PCR 84 IU/mL (NOT DETECTED)
[2024-08-16] MEDS: IPRATROPIUM 0.5 MG/ALBUTEROL SULFATE 2.5 MG AMPUL.NEB 3 ML INHALATION ×2 (03:41→08:15)
[2024-08-16 03:43] VITALS: PULSE 66; RESP 14
[2024-08-16 03:50] VITALS: PULSE 66; RESP 14
[2024-08-16 05:59] VITALS: BP 132/45; PULSE 72; RESP 16; TEMP 36.3; O2SAT 98
[2024-08-16 06:57] LABS: Immature Platelet Fraction Pct 6.5 % (0.9-11.2); Platelet Count Result 93 k/mm3 (150-375)
[2024-08-16 08:17] VITALS: PULSE 62; RESP 20; O2SAT 95
[2024-08-16 08:24] LABS: Glucose Point of Care 227 mg/dl (65-105)
[2024-08-16 08:25] VITALS: PULSE 64; RESP 20
[2024-08-16 08:37] VITALS: PULSE 72
[2024-08-16] MEDS: CYANOCOBALAMIN 500 MCG TABLET PO (08:37)
[2024-08-16] MEDS: ERGOCALCIFEROL 50,000 UNITS CAPSULE 50000 UNITS PO (08:37)
[2024-08-16] MEDS: VITAMIN B CMPLX/VIT C/FOLIC AC 1 CAPSULE 1 CAP PO (08:37)
[2024-08-16] MEDS: PANTOPRAZOLE 40 MG TABLET PO (08:37)
[2024-08-16] MEDS: carvediloL 3.125 MG TABLET PO (08:37)
[2024-08-16] MEDS: SIMETHICONE 80 MG TAB.CHEW PO ×2 (08:37→12:12)
[2024-08-16] MEDS: CALCIUM CARBONATE (TUMS) 500 MG (200 MG ELEMENTAL) 600 MG PO ×2 (08:38→12:12)
[2024-08-16] MEDS: ACETAMINOPHEN 325 MG TABLET BY MOUTH ×2 (08:38→14:14)
[2024-08-16] MEDS: INSULIN ASPART (*BKC) 100 UNITS/ML SUB-Q ×2 (08:43→12:12)
--- NOTE | 2024-08-16 09:35 | P.PNNP_ITS ---
Progress Note: A&P Assessment and Plan (1) End stage renal disease: Code(s): N18.6 - End stage renal disease Status: Chronic Assessment and Plan: * HD yesterday * continue M/W/F dialysis schedule while hospitalized * follow electrolytes, volume status, and clearance (2) Altered mental status: Code(s): R41.82 - Altered mental status, unspecified Status: Acute Assessment and Plan: * significant improvement if not resolved * evaluation to date noted: * CT of head negative * off all sedating medication * MRI of brain unremarkable * TSH/RPR/Vitamin B12 okay * blood gas done on 08/09 with evidence of CO2 retention (though to be secondary to fluid overload) * follow mentation (3) Hypoxia: Code(s): R09.02 - Hypoxemia Status: Acute Assessment and Plan: * resolved - on room air * as noted by EMS on admission * 80% oxygen saturations on room air * improved with 2L oxygen by nasal cannula * presumably due to mild pulmonary edema and RSV (as noted on admission) * s/p DUF with 3L fluid on 08/10 and 2L with HD on 08/11 * continue supportive therapy (4) RSV infection: Qualifiers: RSV infection type: unspecified Qualified Code(s): B33.8 - Other specified viral diseases Code(s): B33.8 - Other specified viral diseases Status: Acute Assessment and Plan: * tested positive for RSV on 07/30 in ER * reported onset of symptoms on 07/28 * continues supportive care: * Mucinex * Tessalon Perles p.r.n. * DuoNeb as needed * Tylenol (5) Atrial fibrillation: Qualifiers: Atrial fibrillation type: unspecified Qualified Code(s): I48.91 - Unspecified atrial fibrillation Code(s): I48.91 - Unspecified atrial fibrillation Status: Chronic Assessment and Plan: * paroxysmal * rate controlled * not on anticoagulation (due to hx of GI bleeding versus fall risk?) (6) Anemia: Qualifiers: Anemia type: unspecified type Qualified Code(s): D64.9 - Anemia, unspecified Code(s): D64.9 - Anemia, unspecified Status: Chronic Assessment and Plan: * related to ESRD * Epogen with HD * follow trend of H/H (7) Hypertension: Qualifiers: Hypertension type: unspecified Qualified Code(s): I10 - Essential (primary) hypertension Code(s): I10 - Essential (primary) hypertension Status: Chronic Assessment and Plan: * reasonable control * follow hemodynamics (8) Type 2 diabetes mellitus: Qualifiers: Diabetes mellitus complication status: without complication Diabetes mellitus retirement insulin use: without lobsterman use Qualified Code(s): E11.9 - Type 2 diabetes mellitus without complications Code(s): E11.9 - Type 2 diabetes mellitus without complications Status: Chronic Assessment and Plan: * follow accu-cheks * glycemic control per hospitalist Results of Hep B DNA PCR reviewed with patient's daughter at bedside and sent to [facility]; not opposed to discharge from renal perspective if otherwise medically stable; Dr. Suarez will continue to follow her at [facility] for outpatient renal replacement therapy/dialysis. Will continue to follow. L Subjective Date/time seen: 08/16/24 09:35 Interval history: Follow-up for end stage renal disease on hemodialysis. Tolerated dialysis treatment yesterday without any issues or problems; breathing/respiratory status remains stable if not improved at the time of my visit -- stable oxygen saturations on room air; results of Hep B DNA PCR resulted and reviewed with patient as well as daughter at bedside; the patient does not appear to be in any distress when seen. Exam 2 Narrative: General: elderly female in NAD Heart: normal S1 and S2; no rub Lungs: clear anteriorly; decreased at bases Abdomen: soft, nontender, nondistended, positive bowel sounds Extremities: no cyanosis or clubbing; no edema Skin: warm and intact Objective Data Vital Signs Vital Signs: Vital Signs Temp Pulse Resp BP Pulse Ox O2 Del Method FiO2 08/16/24 08:37 72 08/16/24 08:25 64 20 08/16/24 08:17 62 20 08/16/24 08:17 95 Room Air 08/16/24 05:59 97.4 F L 72 16 132/45 L 98 08/16/24 03:50 66 14 08/16/24 03:43 66 14 08/15/24 21:35 96 Room Air 08/15/24 21:30 68 18 08/15/24 20:31 97.4 F L 79 18 124/53 L 100 08/15/24 20:00 68 18 96 Room Air 30 08/15/24 16:00 99.4 F 71 20 131/49 L 98 08/15/24 15:02 Room Air 08/15/24 14:50 64 18 Intake/Output Intake/Output: Intake & Output 08/13/24 08/14/24 08/15/24 08/16/24 23:59 23:59 23:59 23:59 Intake Total 1260 336 092 8123 Output Total 774 0 2500 Balance 486 850 -2020 1030 Meds/Results Medications: Active Medications Generic Name Dose Route Start Last Admin Trade Name Freq PRN Reason Stop Dose Admin Acetaminophen 325 mg 08/10/24 00:39 08/16/24 14:14 Acetaminophen 325 Mg Tablet BY MOUTH 325 mg Q4H PRN Administration Pain 1-3 Albuterol/Ipratropium 3 ml 08/09/24 20:00 08/16/24 08:15 Ipratropium 0.5 Mg/Albuterol Sulfate 2.5 Mg Ampul.Neb 3 Ml INHALATION 3 ml Q6HRT THERESE Administration Benzocaine 1 lozenge 07/30/24 18:22 07/30/24 21:28 Benzocaine/Menthol (*Bkc) 18 Ea Lozenge PO 1 lozenge PRN PRN Administration Sore Throat Benzonatate 100 mg 07/30/24 18:22 07/30/24 21:27 Benzonatate 100 Mg Capsule PO 100 mg TID PRN Administration Cough Calcium Carbonate 600 mg 08/01/24 17:30 08/16/24 12:12 Calcium Carbonate (Tums) 500 Mg (200 Mg Elemental) PO 600 mg TID THERESE Administration Carvedilol 3.125 mg 08/02/24 21:00 08/16/24 08:37 Carvedilol 3.125 Mg Tablet PO 3.125 mg Q12HR THERESE Administration Cyanocobalamin 500 mcg 07/31/24 09:00 08/16/24 08:37 Cyanocobalamin 500 Mcg Tablet PO 500 mcg DAILY THERESE Administration Dextrose 12.5 gm 07/30/24 18:29 Dextrose 50% 25 Gm/50 Ml Syringe IV PUSH PRN PRN Hypoglycemia Protocol Dicyclomine HCl 10 mg 07/30/24 21:35 Dicyclomine Hcl 10 Mg Capsule PO BID PRN Abdominal Pain Ergocalciferol 50,000 units 08/02/24 09:00 08/16/24 08:37 Ergocalciferol 50,000 Units Capsule PO 50,000 units WEEKLY THERESE Administration Glucagon 1 mg 07/30/24 18:29 Glucagon For Inj 1 Mg Vial IM PRN PRN Hypoglycemia Protocol Glucose 15 gm 07/30/24 18:29 Glucose Oral Gel 15 Gm Of Glucse In 37.5 Gm Tube PO PRN PRN Hypoglycemia Protocol Guaifenesin 600 mg 08/12/24 10:52 08/15/24 14:24 Guaifenesin 12 Hr 600 Mg Tabcr PO 600 mg Q12HR PRN Administration Cough Dextrose 1,000 mls @ 100 mls/hr 07/30/24 18:29 Dextrose 5% 1,000 Ml IVPB PRN PRN Hypoglycemia Protocol Albumin Human 50 mls @ 999 mls/hr 08/01/24 07:00 08/06/24 13:46 Albutein IVPB 08/31/24 06:59 999 mls/hr Q10M PRN Administration HYPOTENSION Insulin Aspart 1 - 2 units 08/01/24 22:20 08/08/24 22:26 Insulin Aspart (*Bkc) 100 Units/Ml SUB-Q 1 units HS THERESE Administration Protocol Insulin Aspart 2 - 5 units 08/14/24 08:00 08/16/24 12:12 Insulin Aspart (*Bkc) 100 Units/Ml SUB-Q 3 units TIDWM THERESE Administration Protocol Insulin Glargine 35 units 08/02/24 21:00 08/07/24 23:21 Insulin Glargine (*Bkc) 100 Units/Ml SUB-Q Not Given HS [facility] Insulin Glargine 15 units 08/14/24 21:00 08/15/24 20:51 Insulin Glargine (*Bkc) 100 Units/Ml SUB-Q 15 units HS THERESE Administration * Home Med * 1.8 mg 07/31/24 21:00 Liraglutide [Victoza SUB-Q 08/30/24 20:59 2-Agustín] 0.6 Mg/0.1 HS THERESE Ml (18 Mg/3 Ml) Pen Injector Pantoprazole Sodium 40 mg 07/31/24 09:00 08/16/24 08:37 Pantoprazole 40 Mg Tablet PO 40 mg Q12HR THERESE Administration Sevelamer Carbonate 800 mg 07/31/24 08:00 08/14/24 16:30 Sevelamer Carbonate 800 Mg Tablet PO 800 mg TIDWM THERESE Administration Simethicone 80 mg 08/13/24 21:00 08/16/24 12:12 Simethicone 80 Mg Tab.Chew PO 80 mg QID THERESE Administration Sitagliptin Phosphate 100 mg 07/31/24 09:00 07/31/24 08:56 Sitagliptin Phosphate 100 Mg Tablet PO 100 mg DAILY THERESE Administration Sodium Chloride 1 spray 08/10/24 19:11 Saline 0.65% Steve Soln 44 Ml Btl NASAL Q4HR PRN Congestion Venlafaxine HCl 37.5 mg 08/03/24 11:50 08/09/24 10:17 Venlafaxine Hcl Xr 37.5 Mg Cap PO Not Given DAILY@0800 THERESE Vitamin B Complex/Folic Acid 1 cap 07/31/24 09:00 08/16/24 08:37 Vitamin B Cmplx/Vit C/Folic Ac 1 Capsule PO 1 cap DAILY THERESE Administration Radiology Results: ITS Impressions Chest CTA 08/06/24 08:36 IMPRESSION: 1. No pulmonary embolism. Sensitivity decreased in the smaller subsegmental pulmonary arteries due to respiratory motion. 2. Right middle and lower lobe with fluid and mucus in the bronchi consistent with pneumonia. 3. Small bilateral pleural effusions. 4. 4.3 cm fusiform ascending thoracic aortic aneurysm. 5. 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 Head CT 08/07/24 12:33 IMPRESSION: 1. Normal aging brain. No acute intracranial process. 2. Fluid/mucus in some of the paranasal sinuses consistent with acute sinusitis. Lumbar Spine CT 08/07/24 12:38 IMPRESSION: 1. Mild lumbar spondylosis. Brain MRI 08/08/24 16:41 IMPRESSION: 1. No acute intracranial process. 2. Moderate scattered calcific white matter T2 hyperintensity which within normal limits for age and consistent with chronic small vessel ischemic disease. 3. Fluid/mucus in some of the paranasal sinuses consistent with acute sinusitis. Chest X-Ray 08/11/24 07:10 Impression: Probable mild bibasilar pulmonary edema with minimal right pleural effusion. Stable cardiomegaly. Possible underlying COPD. Chest CT 08/11/24 14:08 IMPRESSION: 1. Small pleural effusions, right worse than left. 2. Ectasia of ascending aorta measuring 4.4 cm. Labs Labs: Laboratory Tests 08/16/24 06:11 08/13/24 09:17 08/13/24 09:03 HepB DNA PCR UltraQnt Units/mL 84 H Hep B DNA Qnt log IU/mL 1.92 H
[2024-08-16 12:03] LABS: Glucose Point of Care 277 mg/dl (65-105)
--- NOTE | 2024-08-16 13:40 | P.DS_ITS ---
DS: Admitting Diagnosis Discharge Date 08/16/24 Admitting Diagnosis Shortness of Breath, Cough DS: Discharge Diagnosis Discharge Diagnosis (1) Acute respiratory failure with hypoxia: Code(s): J96.01 - Acute respiratory failure with hypoxia Status: Acute (2) RSV infection: Qualifiers: RSV infection type: unspecified Qualified Code(s): B33.8 - Other specified viral diseases Code(s): B33.8 - Other specified viral diseases Status: Acute (3) ESRD (end stage renal disease) on dialysis: Code(s): N18.6 - End stage renal disease; Z99.2 - Dependence on renal dialysis Status: Chronic DS: Summary Hospital Course Hospital Course: 79-year-old female presents here with shortness of breath and cough with PMH of ESRD on HD (M/W/F), anemia, IBS, pulmonary hypertension, paroxysmal AFib, diabetes, hypertension, and hyperlipidemia. The patient presents here from [facility] dialysis via EMS for further evaluation of general malaise, shortness of breath, and cough. She reports that she initially began feeling unwell for the past week. She reports her cough has been productive yielding yellow. Shortness of breath is also accompanied by congestion, rhinorrhea, poor appetite, fatigue, chills, body aches, and generalized weakness. She denies chest pain, diarrhea, fevers. During her treatment today at [facility], she began feeling weak and having general malaise which prompted them to call EMS. She completed her treatment today. Did not have treatment on Sunday due to the holiday. Upon EMS arrival, it was noted that the patient's O2 saturation was in the 80s on room air. She was placed on 2L NC with improvement to 98%. She does not have a supplemental O2 requirement at baseline. No known sick contacts. Initial VS at presentation: 98.6? F, HR 92, RR 20, 99/45, and 100% on 2L NC. ED workup showed: No leukocytosis, hemoglobin 9.7 (previously 8.7 on 06/09/2023), potassium 2.9, creatinine 2.01 and GFR 24, calcium 7.5, and patient tested positive for RSV (negative for COVID and influenza). CXR showed mild pulmonary edema and cardiomegaly. EKG showed AFib, rate 72, borderline right axis deviation, incomplete RBBB, nonspecific ST and T-wave abnormality (awaiting formal read). Patient was managed for acute hypoxemic hypercapnic respiratory failure, was on BiPAP and successfully transition to room air. pulmonology was involved. CT chest however ruled out pneumonia, but showed bilateral pleural effusions and patient continued dialysis, ECHO showed diastolic dysfunction with normal EF. She was managed with steroids for RSV. Also had metabolic encephalopathy which resolved with stopping Venlafaxine. they refused neuro eval. Also also tested positive to Hep B, and nephrology will adjust accordingly to her dialysis F/u with PCP in 3-5 days. F/u with Nephrology and Pulm as instructed Discharged to SNF per PT/OT recs Time Spent with Patient Time attestation: Total time spent providing and/or coordinating discharge services: DS: Data Data Completed and Pending Labs on day of discharge: Labs from last 24 hours 08/16/24 08/16/24 08/16/24 11:54 08:06 06:11 Plt Count 93 L MPV 12.0 H % Immature Plt Fraction 6.5 POC Capillary Glucose 277 H 227 H HepB DNA PCR UltraQnt Units/mL Hep B DNA Qnt log IU/mL 08/15/24 08/15/24 08/13/24 20:35 16:36 09:03 Plt Count MPV % Immature Plt Fraction POC Capillary Glucose 315 H 276 H HepB DNA PCR UltraQnt Units/mL 84 H Hep B DNA Qnt log IU/mL 1.92 H Discharge Plan Discharge Attending physician on discharge: Kimberly Rosario Consulting providers: Christopher Taylor; Rajesh Livingston; Mariah Henderson Discharging Clinician: Kimberly Rosario Anticipated Discharge Date/Time: 08/16/24 13:37 Patient Disposition: SNF Activity: as tolerated Diet: heart healthy and diabetic Discharge Instructions: Per Care Coordination, patient to report to [facility]([phone]) on 08/18/24 at 9:45 am for her hemodialysis treatment. Patient Instructions: Antibiotic Form Patient Language: Bengali Stand Alone Forms: General Discharge Information Follow-up/Referrals: Mariah Henderson MD [Physician] - (F/u with Pulmonology as instructed ) Christopher Taylor MD [Physician] - (F/u with nephrology as instructed ) David Coppola MD [Primary Care Provider] - (F/u with PCP in 3-5 days ) Discharge Medications: Continued atorvastatin 40 mg tablet 40 mg PO DAILY calcium carbonate [Tums] 200 mg calcium (500 mg) tablet,chewable 1,500 mg PO TID Renal Caps 1 mg capsule 1 cap PO DAILY dicyclomine 10 mg capsule See Rx Instructions .ROUTE .COMPLEX Qty: 60 5RF Dose Instruction: TAKE 1 CAPSULE BY MOUTH TWICE DAILY NEEDED FOR ABDOMINAL PAIN Rx Instructions: TAKE 1 CAPSULE BY MOUTH TWICE DAILY NEEDED FOR ABDOMINAL PAIN sevelamer HCl 800 mg tablet 800 mg PO TID Rx Instructions: must administer with a meal/food carvedilol [Coreg] 12.5 mg tablet 3.125 mg PO BID Rx Instructions: must administer with a meal/food Prolia 60 mg/mL syringe 60 mg subcut [id number] Qty: 1 1RF Patient Comments: Due this month (May). Gets from primary care Doctor. can have caregiver bring in clotrimazole [Antifungal (clotrimazole)] 1 % cream 1 applic topical Q12H lidocaine-prilocaine 2.5-2.5 % cream 1 applic topical ONCE trazodone 50 mg tablet 100 mg PO QHS Qty: 180 1RF ergocalciferol (vitamin D2) 1,250 mcg (50,000 unit) capsule See Rx Instructions .ROUTE .COMPLEX Qty: 13 2RF Dose Instruction: Take 1 capsule by mouth once a week Rx Instructions: Take 1 capsule by mouth once a week liraglutide [Victoza 2-Agustín] 0.6 mg/0.1 mL (18 mg/3 mL) pen injector 1.2 mg subcut HS Rx Instructions: INJECT 1.8 MG (0.3 ML) SUB-Q AT BEDTIME. For diabetes cyanocobalamin (vitamin B-12) 500 mcg Tablet 500 mcg PO DAILY acetaminophen [Acetaminophen Extra Strength] 500 mg Tablet See Rx Instructions PO Q4H PRN (Reason: Pain) Rx Instructions: 325 orally every 4 hours PRN; (DME) blood sugar diagnostic Strip See Rx Instructions .ROUTE .MEDSUPPLY Qty: 500 3RF Rx Instructions: As directed test 6 x day (DME) hortencia strickland See Rx Instructions .Route .MEDSUPPLY Qty: 1 0RF Rx Instructions: As directed (DME) pen needle, diabetic 32 gauge x 1/5 needle See Rx Instructions .ROUTE .MEDSUPPLY Qty: 100 3RF Rx Instructions: As directed (DME) blood sugar diagnostic Strip See Rx Instructions .Route Qty: 500 2RF Rx Instructions: One touch ultra blue test strips. insulin degludec [Tresiba FlexTouch U-100] 100 unit/mL (3 mL) insulin pen 10 unit subcut HS Qty: 15 3RF (DME) Assited gait device See Rx Instructions .Route .MEDSUPPLY Qty: 1 0RF Rx Instructions: Fer Strickland pantoprazole 40 mg tablet,delayed release (DR/EC) 40 mg PO Q12HR Qty: 60 5RF amoxicillin 500 mg capsule 500 mg PO Q8H Qty: 21 1RF Rx Instructions: aware of cephalexin allergy Januvia 100 mg tablet 100 mg PO DAILY Qty: 90 1RF Date of admission: 08/01/24 08:57 Primary Care Provider: David Coppola Admitting Provider: Betsey Rodney Attending physician on admission: Yeimy [place] Condition: Stable
== END 2024-08-16 14:53 | DRG 189 ==
LOC: ANHED 18:59 → ANH3MEDSUR 19:23 → ANH3MED 19:49 → ANH3MEDSUR 08-16 13:16 → ANH3MED 08-18 11:34 → ANHIMU 08-18 11:34
PROVIDERS: Emergency Medicine; General Practice; Internal Medicine Critical Care Medicine; Internal Medicine Nephrology; Internal Medicine Pulmonary Disease; Nurse Practitioner Acute Care; Student in an Organized Health Care Education/Training Program; Admitting Provider Hospitalist; Emergency Provider Emergency Medicine; PCP Family Medicine; Visit Provider Internal Medicine
DX: J96.01 Acute respiratory failure with hypoxia (principal); G93.41 Metabolic encephalopathy; N18.6 End stage renal disease; I12.0 Hypertensive chronic kidney disease with stage 5 chronic kidney disease or end stage renal disease; J06.9 Acute upper respiratory infection, unspecified; J96.02 Acute respiratory failure with hypercapnia; B33.8 Other specified viral diseases; B97.4 Respiratory syncytial virus as the cause of diseases classified elsewhere; I48.0 Paroxysmal atrial fibrillation; I27.20 Pulmonary hypertension, unspecified; I71.20 Thoracic aortic aneurysm, without rupture, unspecified; E11.22 Type 2 diabetes mellitus with diabetic chronic kidney disease; E11.51 Type 2 diabetes mellitus with diabetic peripheral angiopathy without gangrene; E78.5 Hyperlipidemia, unspecified; D63.1 Anemia in chronic kidney disease; D63.8 Anemia in other chronic diseases classified elsewhere; K44.9 Diaphragmatic hernia without obstruction or gangrene; K21.9 Gastro-esophageal reflux disease without esophagitis; K58.9 Irritable bowel syndrome, unspecified; M81.0 Age-related osteoporosis without current pathological fracture; M48.061 Spinal stenosis, lumbar region without neurogenic claudication; Z20.822 Contact with and (suspected) exposure to COVID-19; Z20.5 Contact with and (suspected) exposure to viral hepatitis; Z96.651 Presence of right artificial knee joint; Z99.2 Dependence on renal dialysis; Z89.422 Acquired absence of other left toe(s); Z89.412 Acquired absence of left great toe; Z89.421 Acquired absence of other right toe(s); Z87.11 Personal history of peptic ulcer disease; Z86.0101 Personal history of adenomatous and serrated colon polyps
CPT/HCPCS: 36415; 36600; 70450; 70551; 71045; 71046; 71250; 71275; 72131; 80053; 80069; 82140; 82375; 82607; 82746; 82805; 82948; 83036; 83050; 83605; 83735; 83880; 84100; 84145; 84443; 85018; 85025; 85049; 85055; 86592; 86704; 86705; 86706; 86707; 87040; 87340; 87350; 87517; 87633; 87637; 87641; 92610; 93005; 93306; 94002; 94003; 94618; 94640; 94762; 96374; 97110; 97161; 97165; 97166; 97530; 97535; 99285; A9270; G0257; G0378; J1644; J1815; J1836; J1956; J7030; J7512; P9047; Q5105; Q9967

== ENCOUNTER 2024-11-05 13:52 | Emergency (ER) | payer MEDICARE, MEDICAID, SELFPAY ==
[2024-11-05] VITALS (20 sets, daily range): BP systolic 116–156; BP diastolic 46–68; PULSE 63–78; RESP 12–33; TEMP 36.6; O2SAT 90–98
--- NOTE | ~2024-11-05 | CT_ITS ---
EXAMINATION: CT abdomen pelvis w con DATE: 11/05/2024 15:52 INDICATION: Concern for gastrointestinal bleed TECHNIQUE: Computed tomography (CT) of the abdomen and pelvis was performed with 100 mL Omnipaque-350 intravenous contrast. Automated exposure control and iterative reconstruction technique were employe d. The dose-length product was 179.11 mGy-cm. COMPARISON: None FINDINGS: Tiny left pleural effusion. Dependent atelectasis in the left lower lobe. Moderate cardiomegaly. Athe rosclerotic coronary artery calcium location. No pericardial effusion. Liver, gallbladder, spleen, pa ncreas and bilateral adrenal glands are normal. Severe bilateral renal atrophy with multiple bilatera l renal cysts measuring up to 3 cm the right kidney. There are also a few nonobstructing stones in th e right kidney measuring up to 4-5 mm at the lower pole of the right kidney. There is edematous wall thickening at the gastric antrum which could be due to focal gastritis or peptic ulcer disease althou gh no discrete ulceration is identified. No bowel obstruction. There is wall thickening in the cecum and ascending colon consistent with colitis. Bladder, atrophic uterus and bilateral adnexa are unrema rkable. No free intraperitoneal gas or fluid. No pathologically enlarged abdominal or pelvic lymphade nopathy. There is calcified atherosclerosis of the normal caliber aorta and many of the other arterie s. 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 No significant stenosis at the superior mesent chandler artery. Contrast also seen within the inferior mesenteric artery which is too small to assess fo r degree of stenosis. Contrast opacified mesenteric arteries and veins are seen extending to the milly on of colonic wall thickening. Osteopenia and increased sclerosis most evident in the spine where the re is a regular jersey pattern along with some subperiosteal resorption consistent with renal osteody strophy. IMPRESSION: 1. Proximal colitis which could be infectious, inflammatory or less likely ischemic in etiology. 2. Wall thickening at the gastric antrum which could be seen with gastritis or peptic ulcer disease. 3. Severe bilateral renal atrophy with likely secondary renal osteodystrophy. 4. Moderate cardiomegaly. 5. Trace left pleural effusion. Reviewed, dictated and finalized at location B. IMPRESSION: 1. Proximal colitis which could be infectious, inflammatory or less likely isch emic in etiology. 2. Wall thickening at the gastric antrum which could be seen with gastritis or peptic ulcer disease. 3. Severe bilateral renal atrophy with likely secondary renal osteodystrophy. 4. Moderate cardiomegaly. 5. Trace left pleural effusion.
--- NOTE | 2024-11-05 14:04 | ED_ITS ---
HPI - GI Bleed General Chief complaint: GI Bleed <Fifi Montoya APRN - Last Filed: 11/05/24 14:06> Stated complaint: 1 year of vomiting and dark stool <Fifi Montoya APRN - Last Filed: 11/05/24 14:06> Time Seen by Provider: 11/05/24 17:10 <Fifi Montoya APRN - Last Filed: 11/05/24 14:06> Focused HPI: Patient is a 79-year-old female who presents to the ER with 4 day history of black stools. She reports she was at dialysis this morning and mentioned this to the nurse. The nurse called the subscription crew leader who advised patient to come to the ER for further evaluation. Patient denies any abdominal pain, shortness of breath, recent fevers, urinary symptoms, or back pain. GENERAL: Well-appearing, well-nourished, and in no acute distress. HEAD: Normocephalic, atraumatic. CHEST: Clear to auscultation. ?No respiratory distress. HEART: Regular rate and rhythm.? NEURO: ?Alert and oriented x3. Patient screened in triage and initial orders placed.? ?Additional care and disposition to be based upon?diagnostic testing and treatment. <Fifi Montoya APRN - Last Filed: 11/05/24 14:06> Related Data Home medications: Home Medications ?Medication ?Instructions ?Recorded ?Confirmed ?Last Taken ?Type acetaminophen 500 mg tablet See Rx Instructions PO Q4H PRN Pain 02/20/20 09/12/24 06/05/23 History (Acetaminophen Extra Strength) atorvastatin 40 mg tablet 40 mg PO DAILY 10/25/21 09/12/24 06/04/23 History vitamin B complex and vitamin C 1 cap PO DAILY 10/25/21 09/12/24 06/05/23 History no.20-folic acid 1 mg capsule (Renal Caps) liraglutide 0.6 mg/0.1 mL (18 mg/3 1.2 mg subcut HS 06/06/23 09/12/24 06/05/23 History mL) subcutaneous pen injector (Victoza 2-Agustín) clotrimazole 1 % topical cream 1 applic topical Q12H 09/27/23 09/12/24 07/30/24 History (Antifungal (clotrimazole)) lidocaine-prilocaine 2.5 %-2.5 % 1 applic topical ONCE 09/27/23 09/12/24 Unknown History topical cream biotin 5 mg capsule 5 mg PO DAILY 10/08/24 Unknown History carvedilol 12.5 mg tablet (Coreg) 6.25 mg PO BID 10/16/24 Unknown History lisinopril 10 mg tablet 10 mg PO DAILY 10/16/24 Unknown History <Fifi Montoya APRN - Last Filed: 11/05/24 14:06> Allergies/Adverse reactions: Allergies Allergy/AdvReac Type Severity Reaction Status Date / Time cephalexin Allergy Mild Rash Verified 10/07/24 15:23 enalapril Allergy Unknown cough Verified 10/07/24 15:23 pioglitazone Allergy Unknown Unknown Verified 10/07/24 15:23 cefazolin AdvReac Mild nausea/dizz Verified 10/07/24 15:23 iness tramadol AdvReac Unknown hallucinati Verified 10/07/24 15:23 ons gabapentin AdvReac Hallucinati Verified 10/07/24 15:23 ng <Fifi Montoya, DEAN OF FACULTY - Last Filed: 11/05/24 14:06> Review of Systems 2 Review of Systems: CONSTITUTIONAL: Denies fever GASTROINTESTINAL: Reports abdominal pain, nausea, vomiting, and diarrhea. <Belinda Perales PA-C - Last Filed: 11/05/24 23:54> All systems reviewed & are unremarkable except as noted in HPI and below < Belinda Perales PA-C - Last Filed: 11/05/24 23:54> [facility] Past Medical History Medical History: Medical History (Updated 11/05/24 @ 21:14 by Belinda Perales PA-C) Hepatitis B GERD (gastroesophageal reflux disease) Colon polyps History of gastric ulcer IBS (irritable bowel syndrome) Tubular adenoma of colon Peripheral arterial disease History mid foot amputation. Spinal stenosis at L4-L5 level High-grade central canal stenosis noted on MRI February 2017 Pulmonary hypertension Echocardiogram August 2019: EF 65-70 %, indeterminate left ventricular diastolic function, mild biatrial enlargement, mild mitral valve regurgitation, moderate tricuspid regurgitation, mild pulmonary hypertension with RVSP of 39 Hiatal hernia Thoracic ascending aortic aneurysm 4.[address] scan from August 2019 Anemia of chronic disease Megaloblastic anemia Paroxysmal atrial fibrillation Type 2 diabetes mellitus Hemoglobin A1c was 6.6 in July 2019. Hypertension Osteoporosis Hyperlipidemia AV fistula Left upper extremity End stage renal disease on dialysis Dialysis days are Sunday, Sunday, and Sunday. She is on the transplant list at [facility]. Osteoarthritis of both knees Staphylococcal septicemia (~2013) Closed fracture of lateral portion of right tibial plateau (~2014) <Fifi Montoya, DEAN OF FACULTY - Last Filed: 11/05/24 14:06> Surgical History Surgical History: Surgical History Amputated toe of left foot History of bilateral cataract extraction Amputation at midfoot 5th digit right footAnd the great toe on the left History of arthroplasty of right ankle Presence of Watchman left atrial appendage closure device History of arthroscopy (~12/07/12) wrist History of colonoscopy (~12/02/15) History of knee replacement (~2015) right <Fifi Montoya APRN - Last Filed: 11/05/24 14:06> Family History Family History: Family History Father Hypertension Heart disease Mother Diabetes mellitus Hypertension Tobacco dependence Lung cancer Sibling Heart disease <Fifi Montoya, DEAN OF FACULTY - Last Filed: 11/05/24 14:06> Social History Social History: Social History Social History: The patient is and lives in [place]. She is originally from [place]. 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 She has 2 daughters who live in [place]. She has 1 son who lives in [facility] . She designates her daughters as her surrogate decision makers. She is a lifelong nonsmoker. No alcohol or drug abuse. Primary care physician: Dr. David Coppola Code status: Full code Smoking status: Never smoker Second hand tobacco smoke exposure: No Alcohol intake: former Substance use: never Substance use type: does not use Do You Feel Safe in your Home?: Yes Lack of Transportation: No Lack of Food: Never True Current Housing: I Do Not Have Housing Concerned About Future Housing: No Difficulty Paying Gas/Electric Bills: No Difficulty Paying for Meds: No Currently Unemployed: No Education: High School Diploma/GED Difficulty w/ Childcare or Family Care: No Gender identity (if verbalized by the patient): Female Spiritual care concerns: No Agree to blood products: Yes <Fifi Montoya APRN - Last Filed: 11/05/24 14:06> Exam 2 Narrative: GENERAL: Elderly, well-nourished, and in no acute distress. HEAD: Normocephalic, atraumatic. EYES: EOMI. CHEST: Clear to auscultation. No respiratory distress. No wheezes rales or rhonchi HEART: Regular rate and rhythm. No murmur heard. Normal peripheral pulses. ABDOMEN: Soft, nontender, nondistended, normal active bowel sounds. EXTREMITIES: Normal range of motion. No edema. SKIN: Warm, dry, no rash. NEURO: No focal deficits. Alert and oriented x3. PSYCH: Normal mood and affect RECTAL: Hemoccult-positive <Belinda Perales PA-C - Last Filed: 11/05/24 23:54> Course Course Emergency Course: Patient and family updated on workup and agree with plan of care <Belinda Perales PA-C - Last Filed: 11/05/24 23:54> Consultations Consultation #1: Spoke with Dr. Zhu about patient and workup. Patient may follow up outpatient for further evaluation <Belinda Perales PA-C - Last Filed: 11/05/24 23:54> Date: 11/05/24 <GISELLA Whitley Last Filed: 11/05/24 23:54> Vital Signs Vital signs: Vital Signs Temperature 97.8 F 11/05/24 13:58 Pulse Rate 72 11/05/24 13:58 Respiratory Rate 18 11/05/24 13:58 Blood Pressure 116/52 L 11/05/24 13:58 Pulse Oximetry 93 11/05/24 13:58 Temperature 97.8 F 11/05/24 13:58 Pulse Rate 67 11/05/24 21:31 Respiratory Rate 26 H 11/05/24 21:31 Blood Pressure 137/58 L 11/05/24 21:31 Pulse Oximetry 92 11/05/24 21:31 <Fifi Montoya APRN - Last Filed: 11/05/24 14:06> Vital Signs Temperature 97.8 F 11/05/24 13:58 Pulse Rate 72 11/05/24 13:58 Respiratory Rate 18 11/05/24 13:58 Blood Pressure 116/52 L 11/05/24 13:58 Pulse Oximetry 93 11/05/24 13:58 Temperature 97.8 F 11/05/24 13:58 Pulse Rate 67 11/05/24 21:31 Respiratory Rate 26 H 11/05/24 21:31 Blood Pressure 137/58 L 11/05/24 21:31 Pulse Oximetry 92 11/05/24 21:31 <Belinda Perales PA-C - Last Filed: 11/05/24 23:54> MDM - GI Bleed MDM Narrative Medical decision making narrative: Patient presents to the emergency department for dark stools. She is afebrile and nontoxic appearing. Her vitals are stable. Hemoglobin appears around baseline. Patient is Hemoccult positive. Metabolic panel with evidence of patient's chronic kidney dysfunction. CT abdomen and pelvis shows proximal colitis. Wall thickening of the gastric antrum which could be seen with gastritis or peptic ulcer disease. Severe bilateral renal atrophy. Moderate cardiomegaly. Trace left pleural effusion. Patient given dose of IV antibiotics the ED as well as Protonix. Spoke with Dr. Zhu about patient and workup. Patient may follow up outpatient for further evaluation. Patient and daughter updated on workup and are in agreement with plan of care. They were given warnings to return to the ER <Belinda Perales PA-C - Last Filed: 11/05/24 23:54> Differential Diagnosis Differential diagnosis: Likely hemorrhoids, infectious diarrhea, gastritis, Upper gastrointestinal hemorrhage, Lower gastrointestinal hemorrhage, hematochezia, melena and anal fissure <Belinda Perales PA-C - Last Filed: 11/05/24 23:54> Lab Data Attestation: I reviewed the patient's lab results. <Belinda Perales PA-C - Last Filed: 11/05/24 23:54> Result diagrams: 11/05/24 15:08 11/05/24 15:08 <Fifi L. [place], DEAN OF FACULTY - Last Filed: 11/05/24 14:06> Labs: Lab Results 11/05/24 11/05/24 Range/Units 15:08 20:12 WBC 5.9 (4.5-10.0) K/mm3 RBC 2.83 L (4.2-5.4) M/mm3 Hgb 8.4 L (12.0-15.0) g/dL Hct 28.2 L (37.0-47.0) % MCV 99.6 (80-100) fl MCH 29.7 (26-34) pg MCHC 29.8 L (32-36) g/dl RDW 16.0 H (11.5-14.5) % Plt Count 139 L (150-375) k/mm3 MPV 11.7 H (7.4-10.4) fl Immature Gran % (Auto) 0.3 (0-0.5) % Neut % (Auto) 69.9 (45.5-73.1) % Lymph % (Auto) 15.4 L (18.3-44.2) % [place] % (Auto) 12.4 H (2.6-8.5) % Eos % (Auto) 1.5 (0-4.4) % Baso % (Auto) 0.5 (0.2-1.2) % Lymph # (Auto) 0.91 (0.9-3.2) K/mm3 [place] # (Auto) 0.7 H (0.1-0.6) K/mm3 Eos # (Auto) 0.1 (0-0.3) K/mm3 Baso # (Auto) 0.0 (0.0-0.1) K/mm3 Abs Immat Gran (auto) 0.02 (0.00-0.031) K/mm3 Absolute Neuts (auto) 4.1 (1.3-6.7) K/mm3 Absolute Nucleated RBC 0.000 (0.0-0.012) K/mm3 Band Neutrophils % Not Reportable Nucleated RBC % 0.0 (0.0-0.2) % Platelet Estimate Slightly decreased (Adequate) Hypochromasia 1+ Anisocytosis 1+ Schistocytes None seen PT 13.6 (11.1-14.7) Seconds INR 1.0 APTT 26.9 (22.3-36.8) Seconds Sodium 133 L (137-145) mmol/L Potassium 3.5 (3.4-5.0) mmol/L Chloride 89 L (98-107) mmol/L Carbon Dioxide 33 H (22-30) mmol/L Anion Gap 11 (4-12) mmol/L BUN 30 H D (7-17) mg/dL Creatinine 2.55 H (0.7-1.0) mg/dL Estim Creat Clear Calc Not Reportable Estimated GFR 18 L (59 - ) Glucose 171 H (65-110) mg/dL Calcium 9.0 (8.4-10.2) mg/dL Magnesium 1.9 (1.6-2.3) mg/dL Iron 44 (37-170) ug/dL TIBC 151 L (261-462) ug/dL % Saturation 29 (20-50) % Total Bilirubin 0.8 (0.2-1.3) mg/dL AST 38 H (14-36) U/L ALT 30 (6-35) U/L Alkaline Phosphatase 205 H (38-126) U/L Total Protein 7.0 (6.3-8.2) g/dL Albumin 4.0 (3.5-5.1) g/dL Lipase 255 (23-300) U/L Blood Type O Positive Antibody Screen Negative <Fifi Montoya, DEAN OF FACULTY - Last Filed: 11/05/24 14:06> Lab Results 11/05/24 11/05/24 Range/Units 15:08 20:12 WBC 5.9 (4.5-10.0) K/mm3 RBC 2.83 L (4.2-5.4) M/mm3 Hgb 8.4 L (12.0-15.0) g/dL Hct 28.2 L (37.0-47.0) % MCV 99.6 (80-100) fl MCH 29.7 (26-34) pg MCHC 29.8 L (32-36) g/dl RDW 16.0 H (11.5-14.5) % Plt Count 139 L (150-375) k/mm3 MPV 11.7 H (7.4-10.4) fl Immature Gran % (Auto) 0.3 (0-0.5) % Neut % (Auto) 69.9 (45.5-73.1) % Lymph % (Auto) 15.4 L (18.3-44.2) % [place] % (Auto) 12.4 H (2.6-8.5) % Eos % (Auto) 1.5 (0-4.4) % Baso % (Auto) 0.5 (0.2-1.2) % Lymph # (Auto) 0.91 (0.9-3.2) K/mm3 [place] # (Auto) 0.7 H (0.1-0.6) K/mm3 Eos # (Auto) 0.1 (0-0.3) K/mm3 Baso # (Auto) 0.0 (0.0-0.1) K/mm3 Abs Immat Gran (auto) 0.02 (0.00-0.031) K/mm3 Absolute Neuts (auto) 4.1 (1.3-6.7) K/mm3 Absolute Nucleated RBC 0.000 (0.0-0.012) K/mm3 Band Neutrophils % Not Reportable Nucleated RBC % 0.0 (0.0-0.2) % Platelet Estimate Slightly decreased (Adequate) Hypochromasia 1+ Anisocytosis 1+ Schistocytes None seen PT 13.6 (11.1-14.7) Seconds INR 1.0 APTT 26.9 (22.3-36.8) Seconds Sodium 133 L (137-145) mmol/L Potassium 3.5 (3.4-5.0) mmol/L Chloride 89 L (98-107) mmol/L Carbon Dioxide 33 H (22-30) mmol/L Anion Gap 11 (4-12) mmol/L BUN 30 H D (7-17) mg/dL Creatinine 2.55 H (0.7-1.0) mg/dL Estim Creat Clear Calc Not Reportable Estimated GFR 18 L (59 - ) Glucose 171 H (65-110) mg/dL Calcium 9.0 (8.4-10.2) mg/dL Magnesium 1.9 (1.6-2.3) mg/dL Iron 44 (37-170) ug/dL TIBC 151 L (261-462) ug/dL % Saturation 29 (20-50) % Total Bilirubin 0.8 (0.2-1.3) mg/dL AST 38 H (14-36) U/L ALT 30 (6-35) U/L Alkaline Phosphatase 205 H (38-126) U/L Total Protein 7.0 (6.3-8.2) g/dL Albumin 4.0 (3.5-5.1) g/dL Lipase 255 (23-300) U/L Blood Type O Positive Antibody Screen Negative <Belinda Perales PA-C - Last Filed: 11/05/24 23:54> Imaging Data Radiologist's impression: ITS Impressions Abdomen/Pelvis CT 11/05/24 16:12 IMPRESSION: 1. Proximal colitis which could be infectious, inflammatory or less likely ischemic in etiology. 2. Wall thickening at the gastric antrum which could be seen with gastritis or peptic ulcer disease. 3. Severe bilateral renal atrophy with likely secondary renal osteodystrophy. 4. Moderate cardiomegaly. 5. Trace left pleural effusion. <Belinda Perales PA-C - Last Filed: 11/05/24 23:54> Critical Care Time Critical Care Time Critical Care Time: No <Belinda Perales PA-C - Last Filed: 11/05/24 23:54> Discharge Plan Discharge Clinical Impression: Peptic ulcer disease, Colitis GI bleeding Qualifiers: GI bleed type/associated pathology: unspecified gastrointestinal hemorrhage type Qualified Code(s): K92.2 - Gastrointestinal hemorrhage, unspecified Anemia Qualifiers: Anemia type: unspecified type Qualified Code(s): D64.9 - Anemia, unspecified <Fifi Montoya APRN - Last Filed: 11/05/24 14:06> Patient Disposition: Home <Fifi Montoya APRN - Last Filed: 11/05/24 14:06> Condition: Stable <Fifi Montoya APRN - Last Filed: 11/05/24 14:06> Instructions: Antibiotic Form, Peptic Ulcer (ED), Gastrointestinal Bleeding (ED), Anemia (ED), Colitis (ED) <Fifi Montoya APRN - Last Filed: 11/05/24 14:06> Additional Instructions: Return to the ER if you experience fever, abdominal pain with nausea and vomiting, you are unable to keep down liquids or solids, or any other symptoms that are concerning to you Follow up with gastroenterology. Call in the morning to make an appointment <Fifi Montoya, DEAN OF FACULTY - Last Filed: 11/05/24 14:06> Patient Language: Luxembourgish <Fifi Montoya, ZACKERY - Last Filed: 11/05/24 14:06> Prescriptions: New metronidazole 500 mg tablet 500 mg PO BID 4 Days Qty: 8 0RF No Action atorvastatin 40 mg tablet 40 mg PO DAILY Renal Caps 1 mg capsule 1 cap PO DAILY dicyclomine 10 mg capsule See Rx Instructions .ROUTE .COMPLEX Qty: 60 5RF Dose Instruction: TAKE 1 CAPSULE BY MOUTH TWICE DAILY NEEDED FOR ABDOMINAL PAIN Rx Instructions: TAKE 1 CAPSULE BY MOUTH TWICE DAILY NEEDED FOR ABDOMINAL PAIN Prolia 60 mg/mL syringe 60 mg subcut [id number] Qty: 1 1RF Patient Comments: Due this month (May). Gets from primary care Doctor. can have caregiver bring in clotrimazole [Antifungal (clotrimazole)] 1 % cream 1 applic topical Q12H lidocaine-prilocaine 2.5-2.5 % cream 1 applic topical ONCE trazodone 50 mg tablet 100 mg PO QHS Qty: 180 1RF ergocalciferol (vitamin D2) 1,250 mcg (50,000 unit) capsule See Rx Instructions .ROUTE .COMPLEX Qty: 13 2RF Dose Instruction: Take 1 capsule by mouth once a week Rx Instructions: Take 1 capsule by mouth once a week liraglutide [Victoza 2-Agustín] 0.6 mg/0.1 mL (18 mg/3 mL) pen injector 1.2 mg subcut HS Rx Instructions: INJECT 1.8 MG (0.3 ML) SUB-Q AT BEDTIME. For diabetes acetaminophen [Acetaminophen Extra Strength] 500 mg Tablet See Rx Instructions PO Q4H PRN (Reason: Pain) Rx Instructions: 325 orally every 4 hours PRN; (DME) blood sugar diagnostic Strip See Rx Instructions .ROUTE .MEDSUPPLY Qty: 500 3RF Rx Instructions: As directed test 6 x day (DME) hortencia strickland See Rx Instructions .Route .MEDSUPPLY Qty: 1 0RF Rx Instructions: As directed insulin degludec [Tresiba FlexTouch U-100] 100 unit/mL (3 mL) insulin pen 10 unit subcut HS Qty: 15 3RF (DME) Assited gait device See Rx Instructions .Route .MEDSUPPLY Qty: 1 0RF Rx Instructions: Fer Strickland pantoprazole 40 mg tablet,delayed release (DR/EC) 40 mg PO Q12HR Qty: 60 5RF Januvia 100 mg tablet 100 mg PO DAILY Qty: 90 1RF (DME) pen needle, diabetic 32 gauge x 5/32 needle See Rx Instructions .ROUTE .COMPLEX Qty: 100 3RF Dose Instruction: USE DIRECTED Rx Instructions: USE DIRECTED biotin 5 mg capsule 5 mg PO DAILY (DME) blood sugar diagnostic Strip See Rx Instructions .Route Qty: 500 2RF Rx Instructions: Use to check blood sugars 6 times a day carvedilol [Coreg] 12.5 mg tablet 6.25 mg PO BID Rx Instructions: must administer with a meal/food lisinopril 10 mg tablet 10 mg PO DAILY tenofovir alafenamide 25 mg tablet 25 mg PO DAILY Qty: 90 2RF Rx Instructions: Take every day at suppertime with the meal <Fifi Montoya APRN - Last Filed: 11/05/24 14:06> Follow-up/Referrals: David Coppola MD [Primary Care Provider] - Edin hZu MD [Physician] - <Fifi Montoya APRN - Last Filed: 11/05/24 14:06>
--- OUTSIDE RECORDS SUMMARY | 2024-11-05 14:50 | XMS_ITS | Encounter Summary ---
Author Organization [facility] Healthcare Address [address] [place] [address] Care Team Providers Care Molding Machine Setter Name Role Phone David Coppola MD Primary Care Provider [phone] Jacob Suarez MD Unavailable [phone] Ros Seay MD Unavailable [phone] Abdifatah Villa MD Unavailable Issa Clements MD Unavailable [phone] Encounter Details Date Type Department Care Team (Late st Contact Info) Description 11/05/2024 Telephone [facility] Radiology [address] [place] [address] Alena Fontenot, RN Social History Tobacco Use Types Packs/Day Years Used Date Smoking Tobacco: Never Smokeless Tobacco: Never Alcohol Use Standard Drinks/Week Comments No 0 (1 standard drink = 0.6 oz pur e alcohol) Social Connection and Isolat ion Panel [NHANES] Answer Date Recorded In a typical week, how many times do you talk on the phone with family, friends, or neighbors? More than three times a week 09/04/2019 How often do you get togethe r with friends or relatives? Three times a week 09/04/2019 How often do you attend chur ch or scientologist services? 1 to 4 times per year 09/04/2019 Do you belong to any clubs o r organizations such as islam groups, unions, fraternal or athletic groups, or school groups? Yes 09/04/2019 How often do you attend meet ings of the clubs or organizations you belong to? 1 to 4 times per year 09/04/2019 Are you , , di vorced, , never , or living with a partner? 09/04/2019 Overall Financial Resource Strain (CARDIA) Answe r Date Recorded How hard is it for you to pa y for the very basics like food, housing, medical care, and heating? Not very hard 09/04/2019 Hunger Vital Sign Answer Date Recorded Within the past 12 months, y ou worried that your food would run out before you got the money to buy more. Never true 09/04/19 20 Within the past 12 months, t he food you bought just didn't last and you didn't have money to get more. Never true 09/04/2019 PRAPARE - Transportation Answer Date Re corded In the past 12 months, has l ack of transportation kept you from medical appointments or from getting medications? No 08/10 In the past 12 months, has l ack of transportation kept you from meetings, work, or from getting things needed for daily living? No 09/04/2019 Personal Safety Answer Date Recorded Have you ever been in or are you currently in a harmful physical or emotional relationship or is someone making you feel afraid or unsafe? 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 Awaiting return call from daughter to confirm with patient. NC will continue to follow. documented in this encounter Plan of Treatment Scheduled Procedures Name Priority Associated Diagnoses Date/Ti me TRANSPLANT KIDNEY ESRD (end stage renal disease) (HCC) documented as of this encounter Visit Diagnoses Not on filedocumented in this encounter Care Teams Molding Machine Setter Relationship Specialty Start Date End Date David Coppola MD PCP - General Family Medicine 10/29/17 Jacob Suarez MD Referring Physician Nephrology 12/20/18 Ros Seay MD Compound Mixer Cardiology 03/05/19 Abdifatah Villa MD [address] [address] Consulting Physician Cardiology 09/01/20 Issa Clements MD [address] [facility] [address] [place] [address] Referring Physician General Surgery 09/01/20 documented as of this encounter
--- OUTSIDE RECORDS SUMMARY | 2024-11-05 14:50 | XMS_ITS | Encounter Summary ---
Author Organization [facility] Healthcare Address [address] [place] [address] Care Team Providers Care Brazing Machine Operator Helper Name Role Phone David Coppola MD Primary Care Provider [phone] Jacob Suarez MD Unavailable [phone] Ros Seay MD Unavailable [phone] Abdifatah Villa MD Unavailable Issa Clements MD Unavailable Encounter Details Date Type Department Care Team (Late st Contact Info) Description 11/04/2024 Telephone [facility] Radiology [address] [place] [address] Alena Fontenot, RN Social History Tobacco Use [...] often do you attend chur ch or taoist services? 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 Gorman to repeat RLE angio lani NC LVM with patient and daughter to schedule lani. Awaiting return call. 10/30 in [facility]. documented in this encounter Plan of Treatment Scheduled Procedures Name Priority Associated Diagnoses Date/Ti me TRANSPLANT KIDNEY ESRD (end stage renal disease) (HCC) documented as of this encounter Visit Diagnoses Not on filedocumented in this encounter Care Teams Brazing Machine Operator Helper Relationship Specialty Start Date End Date David Coppola MD PCP - General Family Medicine 10/29/17 Jacob Suarez MD Referring Physician Nephrology 12/20/18 Ros Seay MD Wiring Mechanic Cardiology 03/05/19 Abdifatah Villa MD [id number] [place] [address] Consulting Physician Cardiology 09/01/20 Issa Clements MD [address] [facility] [address] [place] [address] Referring Physician General Surgery 09/01/20 documented as of this encounter
--- OUTSIDE RECORDS SUMMARY | 2024-11-05 14:50 | XMS_ITS | Encounter Summary ---
Author Organization [facility] Address [address] [place] [address] Phone Care Team Providers Care Phlebotomy Program Coordinator Name Role Phone David Coppola MD Primary Care Provider [phone] David Coppola MD Primary Care Provider + [phone] David Coppola MD Primary Care Provider + [phone] David Coppola MD Primary Care Provider [phone] Unknown, Notinfile Primary Care Provider Unavail able David Coppola MD Primary Care Provider [phone] Jacob Suarez MD Unavailable [phone] Marnie Lara RN Unavailable Ros Seay MD Unavailable [phone] Johana Edmond RN Unavailable Abdifatah Villa MD Unavailable Issa Clements MD Unavailable [phone] Encounter Details Date Type Department Care Team (Latest Contact Info) Description 12/16/1980 Orders Only [facility] Scanning, Provider Social History Tobacco Use Types Packs/Day Years Used Date Smoking Tobacco: Never Assessed Comments Unknown Sex and Gender Information Value Date Recorded Sex Assigned at Not on file 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[employer] Gender Identity Not on file Sexual Orientation Not on file documented as of this encounter Plan of Treatment Scheduled Procedures Name Priority Associated Diagnoses Date/Ti me TRANSPLANT KIDNEY ESRD (end stage renal disease) (HCC) documented as of this encounter Procedures Procedure Name Priority Date/Time Associated Diagnosis Comments CARDIOLOGY DOCUMENT SCAN 12/16/1980 documented in this encounter Results * SCAN - CARDIOLOGY (12/16/1980) Anatomical Region Laterality Modality Other us Provider Scanning CV CARDIAC SERVICES PROCEDURES Final Result documented in this encounter Visit Diagnoses Not on filedocumented in this encounter Additional Health Concerns Infection Onset Date Last Indicated Resolved Time Influenza, adult 09/04/2019 09/04/2019 09/11/2019 3:05 AM [employer]OMOBI[employer] INS[employer] Abscess/Wound/Cellulitis 10/16/2019 10/16/2019 3:05 AM CDT documented as of this encounter Care Teams Phlebotomy Program Coordinator Relationship Specialty Start Date End Date David Coppola MD PCP - General 10/06/16 06/03/17 David Coppola MD PCP - General 09/09/15 10/05/16 David Coppola MD PCP - General 06/04/17 06/04/17 David Coppola MD PCP - General 06/05/17 08/16/17 Unknown, Notinfile PCP - General 08/17/17 10/28/17 David Coppola MD PCP - General Family Medicine 10/29/17 Jacob Suarez MD Referring Physician Nephrology 12/20/18 Marnie Lara, RN Registered Nurse Data Center Operator 12/20/1809/03 Ros Seay MD Staff [employer] Officer Cardiology 03/05/19 Johana Edmond, RN [address] [facility] [address] [place] [id number] [employer] Center [employer] 08/21/19 Abdifatah Villa MD [facility] [address] [place] [address] Consulting Physician Cardiology 09/01/20 Issa Clements MD [address] [facility] [address] [facility] [address] [place] [address] Referring Physician General Surgery 09/01/20 documented as of this encounter
--- OUTSIDE RECORDS SUMMARY | 2024-11-05 14:50 | XMS_ITS | Clinical Summary ---
Author Organization [facility] [address] Address [address] [place] [address] Care Team Providers Care Outreach Worker Name Role Phone David Coppola MD Primary Care Provider [phone] Jacob Suarez MD Unavailable [phone] Ros Seay MD Unavailable [phone] Abdifatah Villa MD Unavailable Issa Clements MD Unavailable [phone] Allergies Active Allergy Reactions Criticality Noted Date Comments Cephalexin Unknown 10/16/2019 Pt does not know. Gabapentin Anaphylaxis,Dizzines s, Hallucinations High 05/24/2020 Sulfamethoxazole-Trim ethoprim Anaphylaxis High 08/09/2020 Medications liraglutide (VICTOZA) 0.6 mg/0.1 mL (18 mg/3 mL) injectionIndications :type 2 diabetes mellitus Inject 1.8 mg under the skin nightly Indications: type 2 diabetes mellitus Active ergocalciferol (VITAMIN D) 50,000 unit capsule Take 1 capsule (50,000 Units total) by mouth once a week On Sunday 014 Active acetaminophen 500 mg capsule Take 2 capsules (1,000 mg total) by mouth every 6 (six) hours as needed for pain Active SITagliptin (JANUVIA) 100 mg tabletIndications:ty pe 2 diabetes mellitus Take 1 tablet (100 mg total) by mouth daily Active OneTouch Ultra Blue Test Strip strip USE STRIP TO CHECK GLUCOSE TWICE DAILY AND DIRECTED Active Tresiba FlexTouch U-100 100 unit/mL (3 mL) insulin pen INJECT 10 UNITS SUBCUTANEOUSLY ONCE DAILY Active NovoTwist 32 gauge x 1/5 needle USE 1 ONCE DAILY Active cyanocobalamin (Vitamin B-12) 500 mcg tablet Take 1 tablet (500 mcg total) by mouth Active clotrimazole 1 % cream Apply topically 2 (two) times a day as needed Active calcium carbonate (TUMS) 500 mg (200 mg elemental) chewable tablet Take by mouth Active traZODone (DESYREL) 50 mg tablet 022 Active famotidine (PEPCID) 40 mg tablet Take 1 tablet (40 mg total) by mouth daily 021 Active Prolia 60 mg/mL syringe Q 6 months 022 Active Triphrocaps 1 mg capsule Take 1 capsule by mouth daily 022 Active sevelamer (RENVELA) 800 mg tabletIndications:Re nal Osteodystrophy with Hyperphosphatemia Take 1 tablet (800 mg total) by mouth 3 (three) times a day with meals Active cinacalcet (SENSIPAR) 30 mg tablet Take 1 tablet (30 mg total) by mouth daily Active coenzyme Q10 10 mg capsule Take by mouth Active tobramycin (TOBREX) 0.3 % ophthalmic solution INSTILL 2 DROPS INTO THE LEFT EYE EVERY [address] (NexIUM) 40 mg capsule Take 1 capsule (40 mg total) by mouth daily Active atorvastatin (LIPITOR) 40 mg tabletIndications:PA D (peripheral artery disease) Take 1 tablet by mouth once daily 90 tablet 1 024 Active clopidogreL (PLAVIX) 75 mg tablet Take 1 tablet (75 mg total) by mouth daily 025 2025 Active aspirin 81 mg chewable tablet Take 1 tablet (81 mg total) by mouth daily 025 Active polyethylene glycol (MIRALAX) 17 gram/dose bulk powder Take 17 g by mouth daily as needed (constipation) 025 Active Active Problems Problem Noted Date Diagnosed Date ARCADIO (obstructive sleep apnea)- concern for 02/21 /2025 Non-healing wound of right lower extremity 08/28 Peptic ulcer 08/28/2024 Assessment & Plan (08/28/2024 1:08 PM COMPUTER ART INSTRUCTOR): History of peptic ulcer with GIB Denies sx continue PPI Heart valve disease 04/06/2023 History of GI bleed 02/04/2023 Bradycardia 09/29/2022 Bleeding 09/29/2022 Idiopathic hypotension 09/13/2021 Complication of arteriovenous dialysis fistula 0 09/07/2020 Type 2 diabetes mellitus wit h diabetic peripheral angiopathy and gangrene, without long-term current use of insulin 08/21/2020 Assessment & Plan (08/28/2024 1:05 PM COMPUTER ART INSTRUCTOR): Home regimen Januvia, tresiba 10 and Victoza. Reviewed PCP records noted hypoglycemia last hospital admit with basal insulins continued Will continue januvia and hold tresiba and victoza SSI Family history of ischemic h eart disease and other diseases of the circulatory system 11/27/2019 Critical limb ischemia of right lower extremity 10/14/2019 Overview (10/14/2019): Added automatically from request for surgery [id number] Assessment & Plan (08/28/2024 12:59 PM COMPUTER ART INSTRUCTOR): S/p uncomplicated balloon angioplasty of the AT, peroneal, PT and DP with improvement in blood flow and residual stenoses in the PT, AT, and lateral plantar arteries. Residual stenosis of the peroneal with improved filling via retrograde blood flow. Moderate stenosis of the proximal right common iliac artery just distal to the bifurcation. Plavix 300 in IR suite will resume 75 mg daily with ASA Follow up with IR outpatient Monitor for bleeding given history of prior bleeding on plavix and asa History of angioplasty of peripheral vessel 01/2020 Overview (10/14/2019): Added automatically from request for surgery [id number] Presence of Watchman left atrial appendage closu re device 08/29/2018 Atrial fibrillation, permanent 06/13/2018 Overview (06/13/2018): Added automatically from request for surgery [id number] Assessment & Plan (08/28/2024 1:03 PM COMPUTER ART INSTRUCTOR): Follows with [facility] cardiology. Rate controlled and s/p Watchman due to prior severe GIB Recently stopped coreg due to bradycardia ASA and plavix to start per IR recs post revascularization Assessment & Plan (07/24/2018 9:29 AM COMPUTER ART INSTRUCTOR): Continue coreg. S/p Watchmann DAVIDA occluder implant for future deescalate anticoagulation. Continue apixiban for now as per EP. Post procedure CXR. 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 PAD (peripheral artery disease) 03/15/2018 Overview (03/15/2018): Added automatically from request for surgery [id number] Non-healing wound of lower extremity 03/15/2018 Overview (03/15/2018): Added automatically from request for surgery [id number] Ischemia of foot 03/15/2018 Overview (03/15/2018): Added automatically from request for surgery [id number] Noncompliance 02/24/2018 Essential hypertension 11/10/2017 Assessment & Plan (07/24/2018 9:27 AM COMPUTER ART INSTRUCTOR): Continue home meds and dialysis. Hyperlipidemia associated with type 2 diabetes m ellitus 11/10/2017 ESRD (end stage renal disease) on dialysis 11/10 Assessment & Plan (08/29/2024 4:04 PM COMPUTER ART INSTRUCTOR): Routine M/W/F r brachial fistula (has required multiple dilations last at [facility] 07/2024 Feeling well post procedure denies dyspnea. Renal consulted for HD prior to discharge Assessment & Plan (07/24/2018 9:26 AM COMPUTER ART INSTRUCTOR): HD as per renal consult. 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 06/04/2017 Longstanding persistent atrial fibrillation 12/07 Idiopathic thrombocytopenic purpura 03/23/2015 Anemia, iron deficiency 05/06/2014 Type 2 diabetes mellitus without complication Resolved Problems Problem Noted Date Diagnosed Date Resolved Date Coronary artery disease invo lving [place] coronary artery of [place] heart without angina pectoris 03/07/2021 03/07/2021 Preoperative cardiovascular examination 03/07/2021 09/29/2022 Hypoxia 11/27/2019 04/03/2023 Toe ulcer, left, with unspecified severity 09/16/2018 03/07/2021 Overview (09/16/2018): Added automatically from request for surgery [id number] Cough 11/10/2017 03/07/2021 Lumbago 06/04/2017 03/07/2021 Pain of lower extremity 06/04/201703/10 Chronic anticoagulation 08/22/201610/2018 Overview (10/12/2016): Chronic anticoagulation Stage 4 chronic kidney disease 04/21/2014 04/03/2023 Pain in joint 03/04/2014 04/03/2023 Paroxysmal atrial fibrillation 05/06/2024 ESRD (end stage renal disease) ([facility]) 03/07/2021 Pre-transplant evaluation fo r kidney transplant 04/03/2023 Encounters Date Type Department Care Team Description 11/05/2024 Telephone [facility] [address] [place] [address] Alena Fontenot, RN 11/04/2024 Telephone [facility] [address] [place] [address] Alena Fontenot, RN 10/30/2024 1:14 PM CDT - 10/30/2024 11:59 PM CDT Hospital Encounter [facility] [address] [place] [address] Atherosclerosis of [place] arteries of extremities with intermittent claudication, bilateral legs Discharge Disposition: Discharge to home or self care 10/30/2024 1:00 PM CDT - 10/30/2024 11:59 PM CDT Hospital Encounter [facility] [address] [place] [address] Atherosclerosis of [place] arteries of extremities with intermittent claudication, bilateral legs Discharge Disposition: Discharge to home or self care 10/24/2024 Orders Only [facility] [address] [place] [address] Alena Fontenot RN Atherosclerosis of [place] arteries of extremities with intermittent claudication, bilateral legs (Primary Dx) 08/28/2024 12:03 PM COMPUTER ART INSTRUCTOR - 08/29/2024 4:56 PM COMPUTER ART INSTRUCTOR Hospital Encounter [address] [address] Paulo Harper MD Patel, Kieran, MD Guevara, Carlos Javier, MD ARCADIO (obstructive sleep apnea)- concern for (Primary Dx); Non-healing wound of right lower extremity; Ischemia of foot; Critical limb ischemia of right lower extremity (HCC) Discharge Disposition: Discharge to SNF 08/28/2024 6:00 AM COMPUTER ART INSTRUCTOR Office Visit [facility] 1 [facility] 1st [place] [address] PAD (peripheral artery disease) 08/28/2024 Telephone Radiology 1 [place] [address] Hollie Martinez PA 08/25/2024 Telephone [facility] 1 [place] [address] Tomy Reynolds RN 08/22/2024 2:30 PM COMPUTER ART INSTRUCTOR Telemedicine [facility] Radiology, Interventional Radiology [address] [place] [id number] Anthony Gorman MD Longstanding persistent atrial fibrillation (HCC) (Primary Dx); Hyperlipidemia associated with type 2 diabetes mellitus (HCC); Critical ischemia of foot (HCC); Type 2 diabetes mellitus with diabetic peripheral angiopathy and gangrene, without long-term current use of insulin (HCC); Critical limb ischemia of left lower extremity (HCC); Critical limb ischemia of right lower extremity (HCC); PAD (peripheral artery disease) 08/22/2024 Telephone [facility] [address] [place] [address] Alena Fontenot, ABENA 08/22/2024 Telephone [facility] 1 [place] [address] Alena Fontenot, ABENA 08/22/2024 Orders Only [facility] 1 [facility] [place] [address] Alena Fontenot, ABENA PAD (peripheral artery disease) (Primary Dx) from Last 3 Months Immunizations Immunization Administration Dates Next Due Hep B, Unspecified 04/26/2018 Influenza, Trivalent, Preser vative Free, Intramuscular 04/08/2017 Influenza, Unspecified 03/22/2018,2014,12/15/2014,11/17,10/20/2014,06/23/2014,04/28/2014 ,04/07/2014 Pneumococcal Conjugate PCV 13 05/08/2019 Pneumococcal Polysaccharide PPV23 04/09/2014 Surgical History Surgery Date Site/Laterality Comments KNEE SURGERY 07/09/2015 - 07/08/2016 Right TKA ANKLE SURGERY 07/09/2016 - 07/08/2017 Right ankle replacement HAND SURGERY 07/09/2010 - 07/08/2011 Right repair fracture ESOPHAGOGASTRODUODENOSCOPY 07/09/2016 - 07/08/2017 TONSILLECTOMY at age 16 EYE SURGERY 02/06/2018 - 03/08/2018 Bilateral ATHERECTOMY 03/09/2018 - 04/07/2018 PTCA of L anterior tibial artery AV FISTULA PLACEMENT 07/09/2014 - 07/08/2015 Left CARDIAC CATHETERIZATION 06/12/2019 Minimal disease OTHER SURGICAL HISTORY 07/09/2018 - 07/08/2019 Watchman device Medical History Medical History Date Comments Personal history of other di seases of urinary system History of renal failure - ( Added by TW Conv) Hypertension ESRD on dialysis (HCC) Type 2 diabetes mellitus (HCC) History of transfusion Arthritis History of hemodialysis M, W, F DEMETRIUS AV fistula Gastric ulceration Hyperlipidemia Peripheral vascular disease ESRD on dialysis (HCC) PAD (peripheral artery disease) Critical ischemia of foot (HCC) Presence of Watchman left at rial appendage closure device Osteoporosis Spondylolisthesis of lumbar region Non-healing wound of lower extremity Neurogenic claudication due to lumbar spinal stenosis Atrial fibrillation (HCC) Paroxysmal A-fib (HCC) ARCADIO (obstructive sleep apnea)- concern for 2024 Family History Medical History Relation Name Comments Heart attack Brother Coronary artery disease Father Donald lozada artery disease; Heart attack Father Heart disease Father Family history of cardiac disorder - (Added by TW Conv) Cancer Mother Family history of malignant neoplasm - (Added by TW Conv) Coronary artery disease Mother Donald narmala artery disease; Diabetes Mother Family history of diabetes mellitus - (Added by TW Conv) Anesthesia problems Neg Hx Relation Name Status Comments Brother of ID age 48 Father of ID age 47 Mother Social History Tobacco Use Types Packs/Day Years Used Date Smoking Tobacco: Never Smokeless Tobacco: Never Tobacco Cessation:Counseling Given: Not Answered Alcohol Use Standard Drinks/Week Comments No 0 [...] often do you attend chur ch or sabianism services? 1 to 4 times per year 09/04/2019 Do you belong to any clubs o r organizations such as congregation groups, unions, fraternal or athletic groups, or [...] on file Legal Sex Female 12:39 PM COMPUTER ART INSTRUCTOR Gender Identity Not on file Sexual Orientation Not on file Obstetrics History Last Filed Vital Signs Vital Sign Reading Time Taken Comments Blood Pressure 135/59 08/29/2024 12:45 PM COMPUTER ART INSTRUCTOR Pulse 51 08/29/2024 12:45 PM COMPUTER ART INSTRUCTOR Temperature 36.7 C (98.1 F) 08/29/2024 12:00 PM COMPUTER ART INSTRUCTOR Respiratory Rate 22 08/29/2024 12:45 PM COMPUTER ART INSTRUCTOR Oxygen Saturation 97% 08/29/2024 12:00 PM COMPUTER ART INSTRUCTOR Inhaled Oxygen Concentration - - Weight 58.7 kg (129 lb 6.6 oz) 08/29/2024 7:35 A M COMPUTER ART INSTRUCTOR Height 149.9 cm (4' 11 ) 08/28/2024 4:00 PM COMPUTER ART INSTRUCTOR Body Mass Index 26.14 08/28/2024 4:00 PM COMPUTER ART INSTRUCTOR Plan of Treatment Scheduled Procedures Name Priority Associated Diagnoses Date/Ti me TRANSPLANT KIDNEY ESRD (end stage renal disease) (HCC) Health Maintenance Due Date Last Done Comments Albumin Creatinine Ratio, Urine 1946 Depression Screening 1945 Osteoporosis Screening-Bone Density Scan 1945 Dilated Eye Exam 1946 Foot Exam 1946 DTaP/Tdap/Td Vaccine (1 - Tdap) 1957 Zoster Vaccine (1 of 2) 1996 Well Visit 65+ 2011 Hemoglobin A1C 03/04/2020 09/04/2019, 04/10, 07/18/2018, Additional history exists Influenza Vaccine (Season Ended) 2025 03/24/2020, 03/22/2018, 04/08/2017, Additional history exists Lipid Panel 08/28/2025 08/28/2024, 09/07, 03/07/2021, Additional history exists eGFR 08/28/2025 08/28/2024, 08/10, 10/14/2019, Additional history exists Fall Risk Assessment 08/29/2025 08/29/2024, 09/17/19 Hepatitis B Screening Completed 04/26/2018 Pneumococcal vaccine 65+ Completed 05/08/2019, 08/2013 Hepatitis C Screening Completed 08/19/2020 , 09/04/2019, 05/08/2019 Medical Devices Implanted Type Area Emt Dispatcher Device Identifier Shelf Expiration Date Model / Serial / Lot Device Clsr 27mm Davida Watchman - [id number] - [id number] Implanted:Qty : 1 on 07/23/2018 by Mike Mccloud MD PhD at [facility] Other - see comments Left: Heart [employer] Breanna 12/13/2020 27MM-DAVIDA CLOSURE DEVICE / [id number] / [id number] Description:Left atrial appe ndage closure device Watchman Daig Breanna/[employer] [id number] Angio-Seal Vip Bondek-Plus 6fr .035in 70cm Hemostatic Latex Free - [id number] Implanted:Qty : 1 on 03/20/2018 by Abdifatah Villa MD at [facility] Daig Breanna[employer] 12/06/2018 [id number] / / [id number] Device Davida Watchman Procedure - [id number] Implanted:Qty : 1 on 07/23/2018 by Mike Mccloud MD PhD at [facility] [employer] Breanna WMPERPROCDEVICE 1 - 3 PC / / Description:1 Device Daig Breanna[employer] [id number] Angio-Seal Vip [place]k-Plus 6fr .035in 70cm Hemostatic Latex Free - [id number] Implanted:Qty : 1 on 09/26/2018 by Abdifatah Villa MD at [facility] Daig Breanna[employer] 06/07/2019 [id number] / / [id number] Daig Breanna [id number] Device Closure Angio-Seal Vip Bondek-Plus Polyglyd L70 Cm Od6 Fr Odsec.035 In Vascular - [id number] Implanted:Qty : 1 on 10/16/2019 by Abdifatah Villa MD at [facility]/[employer] [id number] / / [employer] Device 6fr Closure Celt Acd Vascular Sterile Latex Free Disposable [facility] - [id number] Implanted:Qty : 1 on 08/28/2024 at [facility] [employer] 01/01/2027 [facility] [id number] Procedures Procedure Name Priority Date/Time Associated Diagnosis Comments US ARTERIAL DOPPLER LOWER EXTREMITY BILATERAL Schedule Routine, Read Routine (OP Routine) 10/30/2024 3:13 PM CDT Atherosclerosis of [place] arteries of extremities with intermittent claudication, bilateral legs VL US ARTERIAL DUPLEX LOWER EXTREMITY BILATERAL Schedule Routine, Read Routine (OP Routine) 10/30/2024 2:19 PM CDT Atherosclerosis of [place] arteries of extremities with intermittent claudication, bilateral legs POCT GLUCOSE DEVICE Routine 08/29/2024 1 1:37 AM COMPUTER ART INSTRUCTOR HEPATITIS B SURFACE ANTIGEN STAT 08/29/2024 8:36 AM COMPUTER ART INSTRUCTOR POCT GLUCOSE DEVICE Routine 08/29/2024 8 :02 AM COMPUTER ART INSTRUCTOR EGFR Routine 08/28/2024 9:36 PM COMPUTER ART INSTRUCTOR DIFFERENTIAL AUTO Routine 08/28/2024 9:3 6 PM COMPUTER ART INSTRUCTOR CBC WITH AUTO DIFFERENTIAL Routine 08/28/2024 9:36 PM COMPUTER ART INSTRUCTOR BASIC METABOLIC PANEL Routine 08/28/2024 9:36 PM COMPUTER ART INSTRUCTOR POCT GLUCOSE DEVICE Routine 08/28/2024 8 :44 PM COMPUTER ART INSTRUCTOR POCT GLUCOSE DEVICE Routine 08/28/2024 5 :22 PM COMPUTER ART INSTRUCTOR POCT GLUCOSE DEVICE Routine 08/28/2024 1 :35 PM COMPUTER ART INSTRUCTOR ANGIOGRAM LOWER EXTREMITY RIGHT Schedule Routine, Read Routine (OP Routine) 08/28/2024 11:54 AM COMPUTER ART INSTRUCTOR Non-healing wound of right lower extremity Ischemia of foot Critical limb ischemia of right lower extremity (HCC) POCT ACTIVATED CLOTTING TIME, LOW RANGE Routine 08/28/2024 10:37 AM COMPUTER ART INSTRUCTOR POCT ACTIVATED CLOTTING TIME, LOW RANGE Routine 08/28/2024 9:45 AM COMPUTER ART INSTRUCTOR EGFR Routine 08/28/2024 6:06 AM COMPUTER ART INSTRUCTOR PAD (peripheral artery disease) DIFFERENTIAL AUTO Routine 08/28/2024 6:0 6 AM COMPUTER ART INSTRUCTOR PAD (peripheral artery disease) CBC WITH AUTO DIFFERENTIAL Routine 08/28/2024 6:06 AM COMPUTER ART INSTRUCTOR PAD (peripheral artery disease) BASIC METABOLIC PANEL Routine 08/28/2024 6:06 AM COMPUTER ART INSTRUCTOR PAD (peripheral artery disease) LIPID PANEL Routine 08/28/2024 6:06 AM COMPUTER ART INSTRUCTOR PAD (peripheral artery disease) HEPATITIS C ANTIBODY Routine 08/19/2020 12:07 PM COMPUTER ART INSTRUCTOR ESRD (end stage renal disease) (HCC) HEMOGLOBIN A1C Routine 09/04/2019 12:14 AM COMPUTER ART INSTRUCTOR from Last 3 Months or Most Recently Relevant to Health Maintenance Results * US MELISSA And Arterial Doppler Lower Extremity Bilateral (10/30/2024 3:13 PM CDT) Anatomical Region Laterality Modality Vascular Bilateral Ultrasound 10/30/2024 5:42 PM CDT Impressions 10/30/2024 5:42 PM CDT RIGHT LEG:Status post revascularization with reestablishment of patency throughout the tibial vasculature; however, there is monophasic waveform beginning at the level of the distal popliteal which may reflect some recurrent stenosis. The MELISSA is mildly diminished 0.84 and TBI is 0.06 with a blunted digit waveform. Diminished digit pressure may reflect small vessel disease. LEFT LEG:Patent left lower extremity vasculature with transition to monophasic waveforms in the anterior tibial and peroneal territories suggesting high-grade tibial stenosis in these vessels. The MELISSA is 1.04; however, this may be artifactually elevated from noncompressible vessels given monophasic waveforms. Electronically signed by: Ar Aj M.D. Narrative 10/30/2024 5:42 PM CDT EXAMINATION: BILATERAL LOWER EXTREMITY ARTERY DUPLEX WITH ABIS DATE: 10/30/2024 2:00 PM HISTORY: Atherosclerosis of [place] Arteries of Extremities with Intermittent Cladication, Bilateral Leg, right foot wound, right-sided claudication, right 5th toe and left great toe amputation COMPARISON: Relation with the angiogram 08/28/2024 TECHNIQUE: Standard technique was employed for bilateral lower extremity arterial duplex with ABIs including grayscale and color Doppler images with spectral waveform analysis. FINDINGS: SITE WAVEFORM RT FEMORAL Biphasic RT P. FEMORAL Biphasic RT S. FEMORAL Biphasic RT POPLITEAL biphasic proximal monophasic distal RT POST TIBIAL Monophasic RT PERONEAL Monophasic RT ANT TIBIAL Monophasic RT VIANNEY PED Monophasic LT FEMORAL Triphasic LT P. FEMORAL Biphasic LT S. FEMORAL Biphasic LT POPLITEAL Biphasic LT POST. TIBIAL Biphasic LT PERONEAL Monophasic LT ANT TIBIAL Monophasic LT VIANNEY PED Monophasic SITE PRESSURE INDEX RT BRACHIAL index RT ANKLE PT 117 0.84 RT ANKLE DP 102 0.73 RT DIGIT 8 0.06 Right posterior tibial and dorsalis pedis waveforms are monophasic. Digital waveform is blunted LT BRACHIAL 139 LT ANKLE PT 95 0.68 LT ANKLE DP 144 1.04 LT DIGIT - - Left posterior tibial and dorsalis pedis waveforms are monophasic. Procedure Note Ar Aj MD - 10/30/2024 EXAMINATION: BILATERAL LOWER EXTREMITY ARTERY DUPLEX WITH ABIS DATE: 10/30/2024 2:00 PM HISTORY: Atherosclerosis of [place] Arteries of Extremities with Intermittent Cladication, Bilateral Leg, right foot wound, right-sided claudication, right 5th toe and left great toe amputation COMPARISON: Relation with the angiogram 08/28/2024 TECHNIQUE: Standard technique was employed for bilateral lower extremity arterial duplex with ABIs including grayscale and color Doppler images with spectral waveform analysis. FINDINGS: SITE WAVEFORM RT FEMORAL Biphasic RT P. FEMORAL Biphasic RT S. FEMORAL Biphasic RT POPLITEAL biphasic proximal monophasic distal RT POST TIBIAL Monophasic RT PERONEAL Monophasic RT ANT TIBIAL Monophasic RT VIANNEY PED Monophasic LT FEMORAL Triphasic LT P. FEMORAL Biphasic LT S. FEMORAL Biphasic LT POPLITEAL Biphasic LT POST. TIBIAL Biphasic LT PERONEAL Monophasic LT ANT TIBIAL Monophasic LT VIANNEY PED Monophasic SITE PRESSURE INDEX RT BRACHIAL index RT ANKLE PT 117 0.84 RT ANKLE DP 102 0.73 RT DIGIT 8 0.06 Right posterior tibial and dorsalis pedis waveforms are monophasic. Digital waveform is blunted LT BRACHIAL 139 LT ANKLE PT 95 0.68 LT ANKLE DP 144 1.04 LT DIGIT - - Left posterior tibial and dorsalis pedis waveforms are monophasic. IMPRESSION: RIGHT LEG:Status post revascularization with reestablishment of patency throughout the tibial vasculature; however, there is monophasic waveform beginning at the level of the distal popliteal which may reflect some recurrent stenosis. The MELISSA is mildly diminished 0.84 and TBI is 0.06 with a blunted digit waveform. Diminished digit pressure may reflect small vessel disease. LEFT LEG:Patent left lower extremity vasculature with transition to monophasic waveforms in the anterior tibial and peroneal territories suggesting high-grade tibial stenosis in these vessels. The MELISSA is 1.04; however, this may be artifactually elevated from noncompressible vessels given monophasic waveforms. Electronically signed by: Ar Aj M.D. Anthony Gorman MD IMG US PROCEDURES Final Result * US Arterial Duplex Lower Extremity Bilateral (10/30/2024 2:19 PM CDT) Anatomical Region Laterality Modality Vascular Bilateral Ultrasound 10/30/2024 5:42 PM CDT Impressions 10/30/2024 5:42 PM CDT RIGHT LEG:Status post revascularization with reestablishment of patency throughout the tibial vasculature; however, there is monophasic waveform beginning at the level of the distal popliteal which may reflect some recurrent stenosis. The MELISSA is mildly diminished 0.84 and TBI is 0.06 with a blunted digit waveform. Diminished digit pressure may reflect small vessel disease. LEFT LEG:Patent left lower extremity vasculature with transition to monophasic waveforms in the anterior tibial and peroneal territories suggesting high-grade tibial stenosis in these vessels. The MELISSA is 1.04; however, this may be artifactually elevated from noncompressible vessels given monophasic waveforms. Electronically signed by: Ar Aj M.D. Narrative 10/30/2024 5:42 PM CDT EXAMINATION: BILATERAL LOWER EXTREMITY ARTERY DUPLEX WITH ABIS DATE: 10/30/2024 2:00 PM HISTORY: Atherosclerosis of [place] Arteries of Extremities with Intermittent Cladication, Bilateral Leg, right foot wound, right-sided claudication, right 5th toe and left great toe amputation COMPARISON: Relation with the angiogram 08/28/2024 TECHNIQUE: Standard technique was employed for bilateral lower extremity arterial duplex with ABIs including grayscale and color Doppler images with spectral waveform analysis. FINDINGS: SITE WAVEFORM RT FEMORAL Biphasic RT P. FEMORAL Biphasic RT S. FEMORAL Biphasic RT POPLITEAL biphasic proximal monophasic distal RT POST TIBIAL Monophasic RT PERONEAL Monophasic RT ANT TIBIAL Monophasic RT VIANNEY PED Monophasic LT FEMORAL Triphasic LT P. FEMORAL Biphasic LT S. FEMORAL Biphasic LT POPLITEAL Biphasic LT POST. TIBIAL Biphasic LT PERONEAL Monophasic LT ANT TIBIAL Monophasic LT VIANNEY PED Monophasic SITE PRESSURE INDEX RT BRACHIAL index RT ANKLE PT 117 0.84 RT ANKLE DP 102 0.73 RT DIGIT 8 0.06 Right posterior tibial and dorsalis pedis waveforms are monophasic. Digital waveform is blunted LT BRACHIAL 139 LT ANKLE PT 95 0.68 LT ANKLE DP 144 1.04 LT DIGIT - - Left posterior tibial and dorsalis pedis waveforms are monophasic. Procedure Note Ar Aj MD - 10/30/2024 EXAMINATION: BILATERAL LOWER EXTREMITY ARTERY DUPLEX WITH ABIS DATE: 10/30/2024 2:00 PM HISTORY: Atherosclerosis of [place] Arteries of Extremities with Intermittent Cladication, Bilateral Leg, right foot wound, right-sided claudication, right 5th toe and left great toe amputation COMPARISON: Relation with the angiogram 08/28/2024 TECHNIQUE: Standard technique was employed for bilateral lower extremity arterial duplex with ABIs including grayscale and color Doppler images with spectral waveform analysis. FINDINGS: SITE WAVEFORM RT FEMORAL Biphasic RT P. FEMORAL Biphasic RT S. FEMORAL Biphasic RT POPLITEAL biphasic proximal monophasic distal RT POST TIBIAL Monophasic RT PERONEAL Monophasic RT ANT TIBIAL Monophasic RT VIANNEY PED Monophasic LT FEMORAL Triphasic LT P. FEMORAL Biphasic LT S. FEMORAL Biphasic LT POPLITEAL Biphasic LT POST. TIBIAL Biphasic LT PERONEAL Monophasic LT ANT TIBIAL Monophasic LT VIANNEY PED Monophasic SITE PRESSURE INDEX RT BRACHIAL index RT ANKLE PT 117 0.84 RT ANKLE DP 102 0.73 RT DIGIT 8 0.06 Right posterior tibial and dorsalis pedis waveforms are monophasic. Digital waveform is blunted LT BRACHIAL 139 LT ANKLE PT 95 0.68 LT ANKLE DP 144 1.04 LT DIGIT - - Left posterior tibial and dorsalis pedis waveforms are monophasic. IMPRESSION: RIGHT LEG:Status post revascularization with reestablishment of patency throughout the tibial vasculature; however, there is monophasic waveform beginning at the level of the distal popliteal which may reflect some recurrent stenosis. The MELISSA is mildly diminished 0.84 and TBI is 0.06 with a blunted digit waveform. Diminished digit pressure may reflect small vessel disease. LEFT LEG:Patent left lower extremity vasculature with transition to monophasic waveforms in the anterior tibial and peroneal territories suggesting high-grade tibial stenosis in these vessels. The MELISSA is 1.04; however, this may be artifactually elevated from noncompressible vessels given monophasic waveforms. Electronically signed by: Ar Aj M.D. Anthony Gorman MD IMG US PROCEDURES Final Result * POCT glucose (08/29/2024 11:37 AM COMPUTER ART INSTRUCTOR) Glucose, POC 110 70 - 199 mg/dL Blood 08/29/2024 11:3 7 AM COMPUTER ART INSTRUCTOR 08/29/2024 11:37 AM COMPUTER ART INSTRUCTOR Paulo Harper MD LAB POCT ORDERABLES - D EVICE Final Result Performing Organization Address City/[facility]/ZIP Co de Phone Number [facility] [place] [address] * Hepatitis B Surface Antigen Blood (08/29/2024 8:36 AM COMPUTER ART INSTRUCTOR) HepBsAg Nonreactive Nonreactive Blood 08/29/2024 8:36 AM COMPUTER ART INSTRUCTOR 08/29/2024 8:48 AM COMPUTER ART INSTRUCTOR Leoncio zaragoza MD LAB MICROBIOLOGY - GENERAL ORDERABLES Final Result Performing Organization Address [facility] Co de Phone Number [facility] [place] [address] * POCT glucose (08/29/2024 8:02 AM COMPUTER ART INSTRUCTOR) Glucose, POC 149 70 - 199 mg/dL Blood 08/29/2024 8:02 AM COMPUTER ART INSTRUCTOR 08/29/2024 8:02 AM COMPUTER ART INSTRUCTOR us Paulo Harper MD LAB POCT ORDERABLES - D MARIO ALBERTOICE Final Result Performing Organization Address [facility] Co de Phone Number [facility] [place] [address] * (ABNORMAL) eGFR (08/28/2024 9:36 PM COMPUTER ART INSTRUCTOR) [facility] eGFR 10(L) >=60 mL/min/1. 73 m2 Comment: Interpretive Data Reference Interval Normal >/= 90 mL/min/1.73m2 Mildly decreased* 60 - 89 mL/min/1.73m2 Mildly to moderately decreased 45 - 59 mL/min/1.73m2 Moderately to severely decreased 30 - 44 mL/min/1.73m2 Severely decreased 15 - 29 mL/min/1.73m2 Kidney Failure < 15 mL/min/1.73m2 *Relative to young adult level Estimated glomerular filtration rate is determined by the 2020 CKD-EPI equation recommended by the National Kidney Foundation (A Unifying Approach to GFR Estimation: Recommendations of the NKF-ASK Task Force on Reassessing the Inclusion of Race in Diagnosing Kidney Disease, JASN 2020). The CKD-EPI equation should not be used for patients with unstable renal function and has not been validated in children and those over 70. Current interpretive data was last reviewed 2021. Blood 08/28/2024 9:36 PM COMPUTER ART INSTRUCTOR 08/28/2024 11:07 PM COMPUTER ART INSTRUCTOR us Lindsay Gonzalez NP LAB BLOOD ORDERABLES Fin al Result Performing Organization Address City/[facility] Co de Phone Number [facility] [place] [address] * Differential, auto (08/28/2024 9:36 PM COMPUTER ART INSTRUCTOR) Neutrophil abs 2.9 1.5 - 6.5 K/cumm Imm gran abs 0.0 0.0 - 0.1 K/cumm [facility] Lymphocyte abs 1.0 0.8 - 3.3 K/cumm [facility] Monocyte abs 0.8 0.2 - 0.8 K/cumm [facility] Eosinophil abs 0.1 0.0 - 0.5 K/cumm [facility] Basophil abs 0.0 0.0 - 0.1 K/[facility] Neutrophil pct 60.9 % [facility] Comment: Interpretive Data Percent cell count reference ranges are not reported, since discordance with absolute values may lead to misinterpretation of CBC data. Current Interpretive Data was last revised on 2017. Imm gran pct 0.4 % [facility] Comment: Interpretive Data Percent cell count reference ranges are not reported, since discordance with absolute values may lead to misinterpretation of CBC data. Current Interpretive Data was last revised on 2017. Lymphocyte pct 20.0 % [facility] Comment: Interpretive Data Percent cell count reference ranges are not reported, since discordance with absolute values may lead to misinterpretation of CBC data. Current Interpretive Data was last revised on 2017. Monocyte pct 17.1 % [facility] Comment: Interpretive Data Percent cell count reference ranges are not reported, since discordance with absolute values may lead to misinterpretation of CBC data. Current Interpretive Data was last revised on 2017. Eosinophil pct 1.2 % [facility] Comment: Interpretive Data Percent cell count reference ranges are not reported, since discordance with absolute values may lead to misinterpretation of CBC data. Current Interpretive Data was last revised on 2017. Basophil pct 0.4 % [facility] Comment: Interpretive Data Percent cell count reference ranges are not reported, since discordance with absolute values may lead to misinterpretation of CBC data. Current Interpretive Data was last revised on 2017. Blood 08/28/2024 9:36 PM COMPUTER ART INSTRUCTOR 08/28/2024 11:07 PM COMPUTER ART INSTRUCTOR Lindsay Gonzalez FUR BLOWING MACHINE ATTENDANT LAB BLOOD ORDERABLES Fin al Result Performing Organization Address [facility] Co de Phone Number [facility] [place] [address] * (ABNORMAL) CBC with auto differential (08/28/2024 9:36 PM COMPUTER ART INSTRUCTOR) WBC 4.8 3.8 - 9.9 K/cumm Hgb 9.1(L) 11.9 - 15.5 g/dL [facility] Hct 31.6(L) 35.6 - 45.5 % [facility] Plt 93(L) 150 - 400 K/cumm [facility] MPV 11.9 9.1 - 12.3 fL [facility] RBC 2.99(L) 3.90 - 5.20 M/cumm [facility] MCV 105.7(H) 81.3 - 96.4 fL [facility] MCH 30.4 27.1 - 33.3 pg [facility] MCHC 28.8(L) 32.3 - 35.7 g/dL [facility] RDW CV 15.5(H) 11.1 - 14.9 % [facility] RDW SD 60.6(H) 35.7 - 48.1 fL [facility] NRBC abs 0.00 0.00 - 0.01 K/cumm [facility] Blood 08/28/2024 9:36 PM COMPUTER ART INSTRUCTOR 08/28/2024 11:07 PM COMPUTER ART INSTRUCTOR Lindsay Gonzalez FUR BLOWING MACHINE ATTENDANT LAB BLOOD ORDERABLES Fin al Result Performing Organization Address [facility] Co de Phone Number [facility] [place] [address] * (ABNORMAL) Basic metabolic panel (08/28/2024 9:36 PM COMPUTER ART INSTRUCTOR) Sodium 135 135 - 145 mmol/L Potassium, pl 4.4 3.3 - 4.9 mmol/L [facility] Chloride 93(L) 97 - 110 mmol/L [facility] CO2 33(H) 22 - 32 mmol/L [facility] Anion gap 9 2 - 15 mmol/L [facility] BUN 35(H) 6 - 25 mg/dL [facility] Creatinine 4.48(H) 0.60 - 1.10 mg/dL [facility] Glucose 124 70 - 199 mg/dL [facility] Comment: Interpretive Data Fasting glucose >/= 126 mg/dl is diagnostic for diabetes. Fasting is defined as no caloric intake for at least 8 hours. Fasting glucose between 100 mg/dl to 125 mg/dl is diagnostic of prediabetes. In a patient with classic symptoms of hyperglycemia or hyperglycemic crisis, a random glucose >/= 200 mg/dl is diagnostic for diabetes. In the absence of unequivocal hyperglycemia, results should be confirmed by repeat testing. The classification and Diagnosis of Diabetes Diabetes Care 2021; 46: S19-S40. Current interpretive data was last revised 2022. Calcium 9.9 8.5 - 10.3 mg/dL [facility] Blood 08/28/2024 9:36 PM COMPUTER ART INSTRUCTOR 08/28/2024 11:07 PM COMPUTER ART INSTRUCTOR Lindsay Gonzalez NP LAB BLOOD ORDERABLES Fin al Result Performing Organization Address [facility] Co de Phone Number [facility] [place] [place] [address] * POCT glucose (08/28/2024 8:44 PM COMPUTER ART INSTRUCTOR) [facility] Signature Glucose, POC 133 70 - 199 mg/dL Blood 08/28/2024 8:44 PM COMPUTER ART INSTRUCTOR 08/28/2024 8:44 PM COMPUTER ART INSTRUCTOR Vel Anglin MD LAB POCT ORDERABLES - DEVICE Fin al Result Performing Organization Address [facility]/ZIP Co de Phone Number [facility] [place] [address] * POCT glucose (08/28/2024 5:22 PM COMPUTER ART INSTRUCTOR) Glucose, POC 196 70 - 199 mg/dL Blood 08/28/2024 5:2 2 PM COMPUTER ART INSTRUCTOR 08/28/2024 5:22 PM COMPUTER ART INSTRUCTOR Vel Anglin MD LAB POCT ORDERABLES - DEVICE Fin al Result Performing Organization Address [facility] de Phone Number [facility] [place] [address] * POCT glucose (08/28/2024 1:35 PM COMPUTER ART INSTRUCTOR) Glucose, POC 139 70 - 199 mg/dL Blood 08/28/2024 1:35 PM COMPUTER ART INSTRUCTOR 08/28/2024 1:35 PM COMPUTER ART INSTRUCTOR Vel Anglin MD LAB POCT ORDERABLES - DEVICE Fin al Result Performing Organization Address [facility] de Phone Number [facility] [place] [address] * IR Angiogram Lower Extremity Right (08/28/2024 11:54 AM COMPUTER ART INSTRUCTOR) Anatomical Region Laterality Modality Extremity Right X-Ray Angiograph y 08/28/2024 4:58 PM COMPUTER ART INSTRUCTOR Impressions 08/28/2024 5:27 PM COMPUTER ART INSTRUCTOR Successful revascularization of the right anterior tibial, posterior tibial, and lateral plantar arteries as described above. Improved blood flow through the peroneal artery, with persistent occlusion in the distal peroneal artery, where there is retrograde filling of the peroneal from AT collaterals. Moderate stenosis of the proximal right common iliac artery just distal to the iliac bifurcation. PLAN: The patient will be loaded with 600mg Plavix and begin a regimen of Plavix 75mg and ASA 81 daily. Inpatient admission for overnight observation. Dictated by: Gregory Wright M.D. The radiology attending physician has personally reviewed this study, and had reviewed and/or edited this written report and agrees with it. Electronically signed by: Anthony Gorman M.D. Narrative 08/28/2024 5:27 PM COMPUTER ART INSTRUCTOR EXAMINATION: RIGHT LOWER EXTREMITY ANGIOGRAM WITH REVASCULARIZATION PROCEDURES: 1. Ultrasound-guided access left common femoral artery. 2. Abdominal aortogram 3. Right lower extremity angiogram in stations down to the foot 4. Ultrasound-guided access of the right dorsalis pedis artery 5. Balloon angioplasty of the anterior tibial artery, dorsalis pedis artery, peroneal artery, posterior tibial artery, and lateral plantar artery 6. Post intervention angiography 7. Celt closure device deployment HISTORY: 79 year old female with history of PAD s/p multiple toe amputations, ESRD, atrial fibrillation s/p Watchman device, and HLD presenting with right heel wound after recent hospitalization. ATTENDING PRESENCE: Anthony Gorman M.D., the attending radiologist was present from the beginning to the end of the procedure. SEDATION: Procedural sedation was administered under the attending physician's direction and continuous monitoring by a trained nurse specialist who was independent from those actually performing the procedure. Total monitored sedation time was 190 minutes. TECHNIQUE: The risks, benefits and alternatives were discussed and informed consent was obtained. Prior to beginning the procedure, Violet Protocol was performed to confirm the patient's identity and the planned procedure. The fluoroscopy time has been recorded in the electronic medical record. Maximum sterile barriers including cap, mask, hand hygiene, sterile gloves, sterile gown, large sterile drape and 2% chlorhexidine for cutaneous antisepsis were used. Intravenous heparin was administered throughout the case to maintain a goal ACT greater than 270. Protamine was administered at the conclusion of the case for heparin reversal. After sterile prep, the skin over the left groin was infiltrated with 1% lidocaine. The left common femoral artery was punctured under real time ultrasound guidance. An image of the patent vessel was recorded. A 6 Egyptian sheath was placed. An abdominal aortogram was performed. The angiographic catheter was advanced to the right common femoral artery and the right lower extremity angiogram was performed in stations to the foot A 6-Egyptian x 65 cm sheath was advanced to the superficial femoral artery. The guidewire was advanced into the peroneal artery. Angioplasty of the peroneal artery was performed with a 1.5 mm balloon. Two additional 0.014 guidewires were advanced into the posterior tibial artery and anterior tibial artery. Angioplasty of the posterior tibial and anterior tibial arteries were performed with 1.5 mm and 2.0 mm balloons and 2.5 mm balloons.. The wire in the posterior tibial artery was further advanced into the lateral plantar artery and angioplasty was performed with a 1.5 mm balloon. The dorsalis pedis artery was then evaluated with ultrasound and the patent vessel was punctured using a pedal micropuncture set under real time ultrasound guidance. A guidewire was advanced retrograde into the anterior tibial artery via the dorsalis pedis until through and through access was obtained. Angioplasty was performed in the dorsalis pedis artery with a 1.5 mm balloon, followed by angioplasty with a 2.0 mm balloon. Repeat angiogram was performed. After identifying persistent mild multifocal stenoses in the PT, angioplasty was performed with a 2.5 mm balloon. A completion angiogram was performed. After completion of revascularization, a limited common femoral artery angiogram was performed to confirm satisfactory position of arterial puncture site. Celt device was deployed under ultrasound guidance to accomplish successful closure of the arteriotomy. A sterile dressing was applied. ESTIMATED BLOOD LOSS: minimal. CONDITION: Stable DISCHARGED TO: 3500 observation unit FINDINGS: Ultrasound evaluation of the left common femoral artery demonstrates a patent vessel. Abdominal aortogram demonstrates mild infrarenal aortic atherosclerosis and no abdominal aortic aneurysm. Moderate right greater than left proximal common iliac artery stenoses, most severe just distal to the iliac bifurcation. Initial angiogram of the extremity demonstrates mild stenosis of the distal SFA. There are severe multifocal stenoses of the proximal AT and occlusion of the proximal peroneal artery, with note of multiple collaterals arising from the PT at the level of the distal leg and partial retrograde opacification of the peroneal artery from the distal AT. After intervention, the angiogram demonstrates improved blood flow through the AT and PT, with diminutive caliber of the pedal loop. Improved blood flow through the peroneal artery, with occlusion of the distal peroneal artery and retrograde filling via the collaterals. Increased blood flow in the foot with hyperemia of the heel corresponding to the patient's foot wound. Procedure Note Anthony Gorman MD - 08/28/2024 EXAMINATION: RIGHT LOWER EXTREMITY ANGIOGRAM WITH REVASCULARIZATION PROCEDURES: 1. Ultrasound-guided access left common femoral artery. 2. Abdominal aortogram 3. Right lower extremity angiogram in stations down to the foot 4. Ultrasound-guided access of the right dorsalis pedis artery 5. Balloon angioplasty of the anterior tibial artery, dorsalis pedis artery, peroneal artery, posterior tibial artery, and lateral plantar artery 6. Post intervention angiography 7. Celt closure device deployment HISTORY: 79 year old female with history of PAD s/p multiple toe amputations, ESRD, atrial fibrillation s/p Watchman device, and HLD presenting with right heel wound after recent hospitalization. ATTENDING PRESENCE: Anthony Gorman M.D., the attending radiologist was present from the beginning to the end of the procedure. SEDATION: Procedural sedation was administered under the attending physician's direction and continuous monitoring by a trained nurse specialist who was independent from those actually performing the procedure. Total monitored sedation time was 190 minutes. TECHNIQUE: The risks, benefits and alternatives were discussed and informed consent was obtained. Prior to beginning the procedure, Violet Protocol was performed to confirm the patient's identity and the planned procedure. The fluoroscopy time has been recorded in the electronic medical record. Maximum sterile barriers including cap, mask, hand hygiene, sterile gloves, sterile gown, large sterile drape and 2% chlorhexidine for cutaneous antisepsis were used. Intravenous heparin was administered throughout the case to maintain a goal ACT greater than 270. Protamine was administered at the conclusion of the case for heparin reversal. After sterile prep, the skin over the left groin was infiltrated with 1% lidocaine. The left common femoral artery was punctured under real time ultrasound guidance. An image of the patent vessel was recorded. A 6 Egyptian sheath was placed. An abdominal aortogram was performed. The angiographic catheter was advanced to the right common femoral artery and the right lower extremity angiogram was performed in stations to the foot A 6-Egyptian x 65 cm sheath was advanced to the superficial femoral artery. The guidewire was advanced into the peroneal artery. Angioplasty of the peroneal artery was performed with a 1.5 mm balloon. Two additional 0.014 guidewires were advanced into the posterior tibial artery and anterior tibial artery. Angioplasty of the posterior tibial and anterior tibial arteries were performed with 1.5 mm and 2.0 mm balloons and 2.5 mm balloons.. The wire in the posterior tibial artery was further advanced into the lateral plantar artery and angioplasty was performed with a 1.5 mm balloon. The dorsalis pedis artery was then evaluated with ultrasound and the patent vessel was punctured using a pedal micropuncture set under real time ultrasound guidance. A guidewire was advanced retrograde into the anterior tibial artery via the dorsalis pedis until through and through access was obtained. Angioplasty was performed in the dorsalis pedis artery with a 1.5 mm balloon, followed by angioplasty with a 2.0 mm balloon. Repeat angiogram was performed. After identifying persistent mild multifocal stenoses in the PT, angioplasty was performed with a 2.5 mm balloon. A completion angiogram was performed. After completion of revascularization, a limited common femoral artery angiogram was performed to confirm satisfactory position of arterial puncture site. Celt device was deployed under ultrasound guidance to accomplish successful closure of the arteriotomy. A sterile dressing was applied. ESTIMATED BLOOD LOSS: minimal. CONDITION: Stable DISCHARGED TO: 3500 observation unit FINDINGS: Ultrasound evaluation of the left common femoral artery demonstrates a patent vessel. Abdominal aortogram demonstrates mild infrarenal aortic atherosclerosis and no abdominal aortic aneurysm. Moderate right greater than left proximal common iliac artery stenoses, most severe just distal to the iliac bifurcation. Initial angiogram of the extremity demonstrates mild stenosis of the distal SFA. There are severe multifocal stenoses of the proximal AT and occlusion of the proximal peroneal artery, with note of multiple collaterals arising from the PT at the level of the distal leg and partial retrograde opacification of the peroneal artery from the distal AT. After intervention, the angiogram demonstrates improved blood flow through the AT and PT, with diminutive caliber of the pedal loop. Improved blood flow through the peroneal artery, with occlusion of the distal peroneal artery and retrograde filling via the collaterals. Increased blood flow in the foot with hyperemia of the heel corresponding to the patient's foot wound. IMPRESSION: Successful revascularization of the right anterior tibial, posterior tibial, and lateral plantar arteries as described above. Improved blood flow through the peroneal artery, with persistent occlusion in the distal peroneal artery, where there is retrograde filling of the peroneal from AT collaterals. Moderate stenosis of the proximal right common iliac artery just distal to the iliac bifurcation. PLAN: The patient will be loaded with 600mg Plavix and begin a regimen of Plavix 75mg and ASA 81 daily. Inpatient admission for overnight observation. Dictated by: Gregory Wright M.D. The radiology attending physician has personally reviewed this study, and had reviewed and/or edited this written report and agrees with it. Electronically signed by: Anthony Gorman M.D. Anthony Gorman MD IMG IR PROCEDURES Final Result * (ABNORMAL) POCT Activated clotting time, low range (08/28/2024 10:37 AM COMPUTER ART INSTRUCTOR) ACT 331(H) 123 - 168 sec POC Performer [id number] [facility] POC Device Number [id number] [facility] Blood 08/28/2024 10:3 7 AM COMPUTER ART INSTRUCTOR 08/28/2024 10:37 AM COMPUTER ART INSTRUCTOR Result [facility] Paulo Harper MD LAB POCT ORDERABLES - D EVICE Final Result Performing Organization Address [facility] de Phone Number [facility] [place] [address] * (ABNORMAL) POCT Activated clotting time, low range (08/28/2024 9:45 AM COMPUTER ART INSTRUCTOR) ACT >400(H) 123 - 168 sec POC Performer [id number] [facility] POC Device Number [id number] [facility] Blood 08/28/2024 9:45 AM COMPUTER ART INSTRUCTOR 08/28/2024 9:45 AM COMPUTER ART INSTRUCTOR Paulo Harper MD LAB POCT ORDERABLES - D EVICE Final Result Performing Organization Address [facility] Co de Phone Number [facility] [place] [employer] [place] [address] * (ABNORMAL) eGFR (08/28/2024 6:06 AM COMPUTER ART INSTRUCTOR) eGFR 12(L) >=60 mL/min/1. 73 m2 Comment: Interpretive Data Reference Interval Normal >/= 90 mL/min/1.73m2 Mildly decreased* 60 - 89 mL/min/1.73m2 Mildly to moderately decreased 45 - 59 mL/min/1.73m2 Moderately to severely decreased 30 - 44 mL/min/1.73m2 Severely decreased 15 - 29 mL/min/1.73m2 Kidney Failure < 15 mL/min/1.73m2 *Relative to young adult level Estimated glomerular filtration rate is determined by the 2020 CKD-EPI equation recommended by the National Kidney Foundation (A Unifying Approach to GFR Estimation: Recommendations of the NKF-ASK Task Force on Reassessing the Inclusion of Race in Diagnosing Kidney Disease, JASN 2020). The CKD-EPI equation should not be used for patients with unstable renal function and has not been validated in children and those over 70. Current interpretive data was last reviewed 2021. Blood 08/28/2024 6:06 AM COMPUTER ART INSTRUCTOR 08/28/2024 6:29 AM COMPUTER ART INSTRUCTOR Anthony Gorman MD LAB BLOOD ORDERABLES Fi nal Result [facility] [place] [address] * Differential, auto (08/28/2024 6:06 AM COMPUTER ART INSTRUCTOR) Pathologist [facility] Neutrophil abs 2.2 1.5 - 6.5 K/cumm Imm gran abs 0.0 0.0 - 0.1 K/cumm [facility] Lymphocyte abs 0.8 0.8 - 3.3 K/cumm [facility] Monocyte abs 0.7 0.2 - 0.8 K/cumm [facility] Eosinophil abs 0.0 0.0 - 0.5 K/cumm [facility] Basophil abs 0.0 0.0 - 0.1 K/cumm [facility] Neutrophil pct 58.7 % [facility] Comment: Interpretive Data Percent cell count reference ranges are not reported, since discordance with absolute values may lead to misinterpretation of CBC data. Current Interpretive Data was last revised on 2017. Imm gran pct 0.3 % [facility] Comment: Interpretive Data Percent cell count reference ranges are not reported, since discordance with absolute values may lead to misinterpretation of CBC data. Current Interpretive Data was last revised on 2017. Lymphocyte pct 21.3 % [facility] Comment: Interpretive Data Percent cell count reference ranges are not reported, since discordance with absolute values may lead to misinterpretation of CBC data. Current Interpretive Data was last revised on 2017. Monocyte pct 18.4 % [facility] Comment: Interpretive Data Percent cell count reference ranges are not reported, since discordance with absolute values may lead to misinterpretation of CBC data. Current Interpretive Data was last revised on 2017. Eosinophil pct 0.8 % [facility] Comment: Interpretive Data Percent cell count reference ranges are not reported, since discordance with absolute values may lead to misinterpretation of CBC data. Current Interpretive Data was last revised on 2017. Basophil pct 0.5 % [facility] Comment: Interpretive Data Percent cell count reference ranges are not reported, since discordance with absolute values may lead to misinterpretation of CBC data. Current Interpretive Data was last revised on 2017. Blood 08/28/2024 6:06 AM COMPUTER ART INSTRUCTOR 08/28/2024 6:29 AM COMPUTER ART INSTRUCTOR us Anthony Gorman MD LAB BLOOD ORDERABLES Fi nal Result [facility] [place] [address] * (ABNORMAL) CBC with auto differential (08/28/2024 6:06 AM COMPUTER ART INSTRUCTOR) WBC 3.8 3.8 - 9.9 K/cumm Hgb 9.9(L) 11.9 - 15.5 g/dL [facility] Hct 32.6(L) 35.6 - 45.5 % [facility] Plt 105(L) 150 - 400 K/cumm [facility] MPV 11.8 9.1 - 12.3 fL [facility] RBC 3.17(L) 3.90 - 5.20 M/cumm [facility] MCV 102.8(H) 81.3 - 96.4 fL [facility] MCH 31.2 27.1 - 33.3 pg [facility] MCHC 30.4(L) 32.3 - 35.7 g/dL [facility] RDW CV 15.5(H) 11.1 - 14.9 % [facility] RDW SD 58.4(H) 35.7 - 48.1 fL [facility] NRBC abs 0.00 0.00 - 0.01 K/cumm [facility] Blood 08/28/2024 6:06 AM COMPUTER ART INSTRUCTOR 08/28/2024 6:29 AM COMPUTER ART INSTRUCTOR us Anthony Gorman MD LAB BLOOD ORDERABLES Fi nal Result [facility] [place] [address] * Lipid panel (08/28/2024 6:06 AM COMPUTER ART INSTRUCTOR) Cholesterol 114 30 - 199 mg/dL Comment: Interpretive Data Ages < or = 19 years Acceptable: <170 mg/dL Borderline high: 170-199 mg/dL High: >or= 200 mg/dL Ages > or = 20 years Desirable: <200 mg/dL Borderline high: 200-239 mg/dL High: >or= 240 mg/dL Literature References: 1. Expert Panel on Integrated Guidelines for Cardiovascular Health and Risk Reduction in Children and Adolescents. Pediatrics 2011;128:S213 2. NCEP Expert Panel. Circulation 2004;110:227 Current Interpretive Data was last revised on 2018. Triglycerides 77 <=149 mg/dL [facility] Comment: Interpretive Data Ages < or = 9 years Acceptable: <75 mg/dL Borderline high: 75-99 mg/dL High: >or= 100 mg/dL Ages 10 to 20 years Acceptable: <90 mg/dL Borderline high: 90-129 mg/dL High: >or= 130 mg/dL Ages > or = 20 years Desirable: <150 mg/dL Borderline high: 150-199 mg/dL High: 200-499 mg/dL Very high: >or= 499 mg/dL Literature References: 1. Expert Panel on Integrated Guidelines for Cardiovascular Health and Risk Reduction in Children and Adolescents. Pediatrics 2011;128:S213 2. NCEP Expert Panel. Circulation 2004;110:227 Current Interpretive Data was last revised on 2018. HDL 66 >=40 mg/dL [facility] Comment: Interpretive Data Ages < or = 19 years Acceptable: >45 mg/dL Borderline low: 40-45 mg/dL Low: <40 mg/dL Ages > or = 20 years Desirable: >or= 60 mg/dL Low: <40 mg/dL Literature References: 1. Expert Panel on Integrated Guidelines for Cardiovascular Health and Risk Reduction in Children and Adolescents. Pediatrics 2011;128:S213 2. NCEP Expert Panel. Circulation 2004;110:227 Current Interpretive Data was last revised on 2018. LDL, calculated 32 <=129 mg/dL [facility] Comment: Interpretive Data Ages < or = 19 years Acceptable: <110 mg/dL Borderline high: 110-129 mg/dL High: >or= 130 mg/dL Ages > or = 20 years Optimal: <100 mg/dL Near optimal: 100-129 mg/dL Borderline high: 130-159 mg/dL High: >160 mg/dL Calculated using the Harjinder LDL-C estimating equation. This equation was implemented on 2024. Prior to this date LDL-C was estimated using the Friedewald equation. Literature References: 1. Expert Panel on Integrated Guidelines for Cardiovascular Health and Risk Reduction in Children and Adolescents. Pediatrics 2011;128:S213 2. NCEP Expert Panel. Circulation 2004;110:227 3. Harjinder Aguirre al. ANTON Cardiol. 2019November 06;5(5):540-548. doi: 10.1001/jamacardio.2020.0013 Current Interpretive Data was last revised on 2024. Non-HDL Cholesterol 48 mg/dL [facility] Comment: Interpretive Data Ages < or = 19 years Acceptable: <120 mg/dL Borderline high: 120-144 mg/dL High: >145 mg/dL Ages > or = 20 years When triglycerides are >200 mg/dL, Non-HDL cholesterol is a secondary target of therapy with treatment goals that are 30 mg/dL greater than the LDL cholesterol target. Literature References: 1. Expert Panel on Integrated Guidelines for Cardiovascular Health and Risk Reduction in Children and Adolescents. Pediatrics 2011;128:S213 2. NCEP Expert Panel. Circulation 2004;110:227 Current Interpretive Data was last revised on 2018. Chol/HDL ratio 2 [facility] Blood 08/28/2024 6:06 AM COMPUTER ART INSTRUCTOR 08/28/2024 6:29 AM COMPUTER ART INSTRUCTOR Anthony Gorman MD LAB BLOOD ORDERABLES Fi nal Result Performing Organization Address [facility]/ZIP Co de Phone Number [facility] [place] [address] * (ABNORMAL) Basic metabolic panel (08/28/2024 6:06 AM COMPUTER ART INSTRUCTOR) [facility] Sodium 138 135 - 145 mmol/L Potassium, pl 4.4 3.3 - 4.9 mmol/L [facility] Chloride 94(L) 97 - 110 mmol/L [facility] CO2 37(H) 22 - 32 mmol/L [facility] Anion gap 7 2 - 15 mmol/L [facility] BUN 26(H) 6 - 25 mg/dL [facility] Creatinine 3.76(H) 0.60 - 1.10 mg/dL [facility] Glucose 139 70 - 199 mg/dL [facility] Comment: Interpretive Data Fasting glucose >/= 126 mg/dl is diagnostic for diabetes. Fasting is defined as no caloric intake for at least 8 hours. Fasting glucose between 100 mg/dl to 125 mg/dl is diagnostic of prediabetes. In a patient with classic symptoms of hyperglycemia or hyperglycemic crisis, a random glucose >/= 200 mg/dl is diagnostic for diabetes. In the absence of unequivocal hyperglycemia, results should be confirmed by repeat testing. The classification and Diagnosis of Diabetes Diabetes Care 202; 46: S19-S40. Current interpretive data was last revised 2022. Calcium 10.7(H) 8.5 - 10.3 mg/dL [facility] Blood 08/28/2024 6:06 AM COMPUTER ART INSTRUCTOR 08/28/2024 6:29 AM COMPUTER ART INSTRUCTOR Anthony Gorman MD LAB BLOOD ORDERABLES Fi nal Result Performing Organization Address City/[facility]/ZIP Co de Phone Number [facility] [place] [address] * Hepatitis C antibody (08/19/2020 12:07 PM COMPUTER ART INSTRUCTOR) [facility] Hep C Ab Nonreactive Nonreactive [facility] Comment:Antibodies to HCV no t detected. Does NOT exclude the possibility of recent exposure to HCV. Blood specimen (specimen) 08/19/2020 12:07 PM COMPUTER ART INSTRUCTOR 08/19/2020 12:15 PM COMPUTER ART INSTRUCTOR Humza Trevizo MD LAB MICROB IOLOGY - GENERAL ORDERABLES Edited Result - Final Performing Organization Address [facility] [place] [address] * (ABNORMAL) Hemoglobin A1c (09/04/2019 12:14 AM COMPUTER ART INSTRUCTOR) [facility] Hgb A1C 8.2(H) 4.0 - 5.6 % [facility] Estimated Average Glucose 189 mg/dL [facility] Comment: The ADA recommends reporting an estimated Average Glucose (eAG) with all Hemoglobin A1c results using the equation derived from a study of 507 normal and diabetic adults. Minority populations were underrepresented and children were not included. (Diabetes Care 31:5320-8309, 2008). The eAG is not equivalent to a fasting glucose. Blood specimen (specimen) 09/04/2019 12:14 AM COMPUTER ART INSTRUCTOR 09/04/2019 12:58 AM COMPUTER ART INSTRUCTOR us Brandin Pena MD LAB BLOOD ORDERABLES Final Result Performing Organization Address [facility] [place] [address] from Last 3 Months or Most Recently Relevant to Health Maintenance Insurance [facility] MEDICARE ADVANTAGE IDPA MEDICARE [employer] [facility] MEDICARE ADVANTAGE IDPA [facility] MEDICARE ADVANTAGE Advance Directives For more information, please contact: [phone] * Full Code (Latest Code Status on File) Date Activated Date Inactivated Comments 08/28/2024 6:35 AM 08/29/2024 9:01 PM * Full Code Date Activated Date Inactivated Comments 09/03/2019 11:07 PM 09/04/2019 6:57 PM * Full Code Date Activated Date Inactivated Comments 07/23/2018 10:39 PM 07/24/2018 7:45 PM Care Teams Outreach Worker Relationship Specialty Start Date End Date David Coppola MD PCP - General Family Medicine 10/29/17 Jacob Suarez MD Referring Physician Nephrology 12/20/18 Ros Seay MD [employer] Cardiology 03/05/19 Abdifatah Villa MD [address] [facility] [address] [place] [address] Consulting Physician Cardiology 09/01/20 Issa Clements MD [address] [facility] [address] [place] [address] Referring Physician General Surgery 09/01/20
--- OUTSIDE RECORDS SUMMARY | 2024-11-05 14:50 | XMS_ITS | Encounter Summary ---
Author Organization [facility] Address [address] [place] [address] Care Team Providers Care Cotton Machine Operator Name Role Phone David Coppola MD Primary Care Provider + [phone] David Coppola MD Unavailable [phone] David Coppola MD Unavailable [phone] Virginie Corea RN Unavailable [phone] Encounter Details Date Type Department Care Team (Late st Contact Info) Description 04/10/2018 Nutrition [facility] [address] [place] [id number] Lindsay Gardner RD/LAURA Social History Tobacco Use Types Packs/Day Years Used Date Smoking Tobacco: Never Smokeless Tobacco: Never Alcohol Use Standard Drinks/Week Comments No 0 (1 standard drink = 0.6 oz pur e alcohol) Comments No Sex and Gender Information Value Date Recorded Sex Assigned at Not on file Legal Sex Female 5:40 PM WEB ART DIRECTOR Gender Identity Not on file Sexual Orientation Not on file documented as of this encounter Functional Status * Is person deaf or have serious hearing difficulty? Answer Date of Assessment Author No 02/22/2015 4:38 PM Yenny Buitrago RN * Is person blind or have serious difficulty seeing? Answer Date of Assessment Author No 02/22/2015 4:38 PM Yenny Buitrago RN * Does person have serious difficulty walking/climbing stairs? Answer Date of Assessment Author No 02/22/2015 4:38 PM CDT Yenny Delgado RN * Does person have difficulty dressing/bathing? Answer Date of Assessment Author No 02/22/2015 4:38 PM CRISTOBALT Yenny Delgado RN * Does person have difficulty doing errands alone? Answer Date of Assessment Author No 02/22/2015 4:38 PM CRISTOBALT Yenny Delgado RN documented as of this encounter Mental Status * Does person have difficulty concentrating/remembering/making decisions? Answer Entry Date Author No 02/22/2015 4:38 PM CRISTOBALT Yenny Delgado RN documented in this encounter Progress Notes * Lindsay Gardner, RD/LD - 04/10/2018 2:13 PM CDT Transplant Nutrition Evaluation Name: Shasta Hooker Potential Transplant: Kidney : 46 Age: 72 yo Date of Interview: 03/28/18 Interviewed in person or over the phone: in person Ht: 60 Wt: 146 lbs BMI: 28.51 Pt aware of appropriate BMI? yes Wt hx: Wt Readings from Last 3 Encounters: 04/02/18 146 lb 12/07/17 143 lb 1.3 oz 09/18/17 143 lb 4.8 oz Wt to lose: NA Exercise: Yes, walks, [employer] Nutrition Related PMH: Abnormal finding on imaging Encounter for other preprocedural examination Pre-transplant evaluation for kidney transplant Complication of arteriovenous dialysis fistula PVD (peripheral vascular disease) ESRD (end stage renal disease) Pseudoaneurysm of brachial artery Current Diet: DB, Fluid Restriction, Low in Salt and Spices Previously educated on diet? Yes at dialysis Appetite: good Meals per day: 3 ETOH Intake: none Recent n/v? none Recent taste changes? unknown Type of Dialysis: HD Comments re: labs: . Recent Labs Component Name 04/02/18 0707 03/28/18 1353 GLUCOSE 162* - BUN 43* 46* CREATININE 5.50* 5.4* EGFR 8 8* SODIUM 135* - POTASSIUM 4.9 5.8* CO2 30 24 CALCIUM 8.1* 8.3* ALT - 12 AST - 16 . Recent Labs Component Name 03/28/18 1353 CHOL 143 TRIG 178* HDL 64 LDLCALC 43 . Recent Labs Component Name 09/20/18 1353 HGBA1C 5.7 EAG 117 Food Allergies/Intolerances: NKFA Vitamins/Supplements/Relevant Medications: HYDROcodone-acetaminophen (NORCO) 5-325 MG tablet Take 1 tablet by mouth every 6 hours as needed for Pain ?? HYDROcodone-acetaminophen (NORCO) 7.5-325 MG tablet Take 1 tablet by mouth every 4 hours as needed for Pain ?? clopidogrel (PLAVIX) 75 MG tablet Take 75 mg by mouth once daily ?? apixaban (ELIQUIS) 2.5 MG tablet Take 2.5 mg by mouth 2 times daily ?? denosumab (PROLIA) 60 MG/ML SC injection Inject 60 mg subcutaneously Given every 6months ?? warfarin (COUMADIN) 5 MG tablet Take 8 mg by mouth once daily ?? carvedilol (COREG) 25 MG tablet Take 12.5 mg by mouth 2 times daily with morning and evening meal ?? Cobalamine Combinations (FOLTRATE PO) Take 1 tablet by mouth once daily ?? SITagliptin (JANUVIA) 100 MG tablet Take 100 mg by mouth once daily ?? liraglutide (VICTOZA) 18 MG/3ML pen Inject subcutaneously once daily Sliding scale ?? sevelamer carbonate (RENVELA) 800 MG Take 2,400 mg by mouth 3 times daily with meals ?? B complex-vit C-folic acid (RENAPHRO,NEPHROCAPS) 1 MG capsule Take 1 Cap by mouth once daily ?? cyanocobalamin (VITAMIN B-12) 500 MCG tablet Take 500 mcg by mouth once daily ?? Cholecalciferol 1000 UNITS TABS Take 2,000 Units by mouth once daily ?? lovastatin (MEVACOR) 20 MG tablet Was patient educated on a diet? See recommendations/interventions 24 Hour Recall/recent food frequency: B - eggs, L - Veg soup [employer] D - Chicken, rice, Greens Additional Information: None BMI= 28.51, overweight - Pt is considered to be a good candidate for a Kidney Transplant from a Nutrition standpoint. Recommendations/Interventions: Pt instructed to continue to work with Renal RD at HD on diet and to be compliant. documented in this encounter Plan of Treatment Upcoming Encounters Date Type Department Care Team (Late st Contact Info) Description 11/11/2024 11:00 AM CDT Appointment [facility] [address] [place], [place] [id number] [place] [address] [facility] [address] [place] [address] [place] [address] [facility] [address] [place] [address] Cristo Fontenot MD [address] [place], [place] [id number] documented as of this encounter Visit Diagnoses Not on filedocumented in this encounter Care Teams Cotton Machine Operator Relationship Specialty Start Date End Date David Coppola MD [address] [place] [phone] PCP - General 08/15/16 David Coppola MD [address] [place] [phone] Family Medicine 02/08/15 David Coppola MD [address] [place] [phone] Family Medicine 08/15/16 Virginie Corea, ABENA Loom Changeover Operator 02/23/15 documented as of this encounter
--- OUTSIDE RECORDS SUMMARY | 2024-11-05 14:50 | XMS_ITS | CONTINUITY OF CARE DOCUMENT ---
Author Name narakana narakana Address Unknown Organization [facility] Address [address] [place] [address] Phone [phone] Care Team Providers Care Archivist Economic History Name Role Phone Herbert Weller MD Unavailable NOY PENN MD Unavailable NOY PENN MD Unavailable PROBLEMS Condition Status Date Provider Notes EKG active Herbert Weller MD Family History of Hypertension: active Sylvie Weller MD Family History of Hypertension: active Sylvie Weller MD PVD active Herbert Weller MD Hypoxia active Herbert Weller MD Hypertension active Herbert Weller MD Atrial fibrillation active Herbert Weller MD ENCOUNTERS Date Type Provider Location Encounter Diag nosis - In-person encounter Office Visit Herbert Weller MD [place] [facility] EKGFamily History of Hypertension:Family History of Hypertension:PVDHypox iaHypertensionAtrial fibrillation VITAL SIGNS Date Observation Value Provider Body Mass Index (Ratio) 28.00 kg/m2 Sylvie Weller MD blood pressure, diastolic 52 mm[Hg] To reshma Negro blood pressure, systolic 81 mm[Hg] Ton jair Negro pulse rate 40 /min Anupama Negro oxygen saturation, oximetry 88 % Anupmaa Negro respiratory rate E&M 16 /min [facility] blood pressure, resting Yes [facility] height E&M 58 [in_i] [facility] weight E&M 134 [lb_av] [facility] temperature site temporal Shea Tank sley temperature E&M 97.3 [degF] Shea Tanks zackary ALLERGIES No Known Drug Allergies HISTORY OF MEDICATION USE Medication Status Instructions Dates Provider Indications Com ments LOSARTAN POTASSIUM 25 MG ORAL TABLET active one tab daily Anupama Negro #90, 90 days supply, Prescribed by SIMBA YOO, Filled 10/21/2019 MORPHINE SULFATE ER 15 MG ORAL TABLET EXTENDED RELEASE active TAKE 1 TABLET BY MOUTH EVERY 12 HOURS Anupama Negro #20, 10 days supply, Prescribed by NOY PENN, Filled 11/22/2019 TRESIBA FLEXTOUCH 100 UNIT/ML SUBCUTANEOUS SOLUTION PEN-INJECTOR active INJECT 10 UNITS SUBCUTANEOUSLY ONCE DAILY Anupama Negro #3, 30 days supply, Prescribed by NOY PENN, Filled 11/23/2019 SOCIAL HISTORY Date Observation Value Provider number of grandchildren Herbert Neal social history E&M S moking History: Fernando dee has never smoked. Harry Neal social history reviewed E&M reviewed - no changes required Harry Neal [facility] status [facility] Family Member Condition Father Family History of Co ngestive Heart Failure: Father Family History of Hy pertension: Mother Family History of Hy pertension: Mother Family History of Di abetes: Mother Family History of De pression: INSURANCE PROVIDERS Payer name Policy type / Coverage type [place] [employer] FAMILY [employer] Medicaid 3 [id number] [facility] MEDICARE COMPLETE HMO Other [id number] ADVANCE DIRECTIVES Name Date DISCUSSED - NO DECISION MADE TREATMENT PLAN Date Name Performer Cardiology:Since her pressure is 81/52, I will stop her losartan. Will check an upper extremity arterial doppler. BP today: 81/52 Harry Neal Cardiology:She is s/p watchman J effshelly Blankdori Cardiology:Will chec k a sensilase. If she has no significant rest pain or troubles with healing, we will wait to the the DVA. Harry Blankjujubrandy Cardiology:Since her pressure is 81/52, I will stop her losartan. BP today: 81/52 Harry Blankdori Cardiology:Pt oxygen level is at 88%. For a long time it was below this level. I have recommended that she wear oxygen at home. Harry Blankjujubrandy Date Name Arterial Duplex Uppe r Extremity Bilateral HISTORY OF PROCEDURES Procedure Date Procedure Name Provider Procedure Notes S tatus EKG Herbert Weller MD completed
--- OUTSIDE RECORDS SUMMARY | 2024-11-05 14:51 | XMS_ITS | Clinical Summary ---
Author Organization [facility] Address [address] [place] [id number] Phone Care Team Providers Care Colloid Mill Operator Name Role Phone Unavailable Primary Care Provider Unavailabl e Medications imipramine (TOFRANIL) 25 MG tablet 0 03/04/2014 Active pioglitazone (ACTOS) 15 MG tablet 03/04/2014 Active amLODIPine (NORVASC) 5 MG tablet 03/04/2014 Active aspirin (ASPIR-LOW) 81 MG EC tablet 03/04/2014 Active lovastatin (MEVACOR) 20 MG tablet 03/04/2014 Active ergocalciferol (VITAMIN D-2) 79707 units capsule 1 weekly 03/04/2014 Active lisinopril (PRINIVIL,ZESTR IL) 20 MG tablet 1 daily 12 08/23/2017 Active diclofenac (VOLTAREN) 1 % topical gel 03/04/2014 Active omega-3 (FISH OIL) 1000 MG capsule 03/04/2014 Active clotrimazole (LOTRIMIN) 1 % cream 03/04/2014 Active ferrous sulfate 325 (65 Fe) MG tablet 03/04/2014 Active carvedilol (COREG) 3.125 MG tablet 1 ibid 12 07/17/2017 Active Methylcobalamin (H30-PWHHXW) 1 MG chewable tablet half tab daily 4 10/24/2016 Active denosumab (PROLIA) 60 MG/ML solution syringe 03/04/2014 Active HYDROcodone-rosa maria taminophen (NORCO) 5-325 MG per tablet 03/04/2014 Activ e SITagliptin (JANUVIA) 25 MG tablet 03/04/2014 Active cinacalcet (SENSIPAR) 30 MG tablet 1 each evening 12 12/13/2017 Active sevelamer carbonate (RENVELA) 800 MG tablet TAKE 3 TABLETS BY MOUTH THREE TIMES DAILY WITH MEALS 270 tablet 11/08/2020 Active lidocaine-prilo umair (EMLA) 2.5-2.5 % cream APPLY 30 MINUTES PRIOR TO DIALYSIS 45 g 11 12/14/2020 Active Active Problems Problem Noted Date Diagnosed Date Renal osteodystrophy 09/10/2017 Anemia in chronic kidney disease 09/10/2017 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 End stage renal disease 02/06/2015 Type 2 diabetes mellitus without complication Hypertensive chronic kidney disease with stage 1 through stage 4 chronic kidney disease, or unspecified chronic kidney disease 03/04/2014 Hyperlipidemia 03/04/2014 Pain in joint 03/04/2014 Family History Medical History Relation Comments Coronary arteriosclerosis Father Hypertensive disorder Father Cerebrovascular accident Neg Hx Kidney disease Neg Hx Kidney stone Neg Hx Relation Status Comments Father Social History Tobacco Use Types Packs/Day Years Used Date Smoking Tobacco: Never Assessed Comments Unknown Sex and Gender Information Value Date Recorded Sex Assigned at Not on file Legal Sex Female 8:35 AM MST Gender Identity Not on file Sexual Orientation Not on file Last Filed Vital Signs Vital Sign Reading Time Taken Comments Blood Pressure 119/62 09/11/2018 12:01 AM LONG TERM CARE ADMINISTRATOR Pulse 72 02/01/2015 12:01 AM CDT Temperature 36.8 C (98.3 F) 02/01/2015 12:01 AM CDT Respiratory Rate - - Oxygen Saturation - - Inhaled Oxygen Concentration - - Weight 63.5 kg (140 lb) 09/11/2018 12:01 AM LONG TERM CARE ADMINISTRATOR Height 149.9 cm (4' 11 ) 09/11/2018 12:01 AM LONG TERM CARE ADMINISTRATOR Body Mass Index 28.28 09/11/2018 12:01 AM LONG TERM CARE ADMINISTRATOR Plan of Treatment Health Maintenance Due Date Last Done Comments Pneumococcal PPSV23/PCV13 65 + Years / Low and Medium Risk (1 of 4 - PCV) 1996 Influenza Vaccine (Season Ended) 2025
--- OUTSIDE RECORDS SUMMARY | 2024-11-05 14:51 | XMS_ITS | Encounter Summary ---
Author Organization [facility] Address [address] [place] [address] Care Team Providers Care Professor Of Communication And Writing Name Role Phone David Coppola MD Primary Care Provider [phone] Jacob Suarez MD Unavailable [phone] Marnie Lara RN Unavailable [phone] Ros Seay MD Unavailable [phone] Johana Edmond RN Unavailable Abdifatah Villa MD Unavailable Issa Clements MD Unavailable [phone] Encounter Details Date Type Department Care Team (Late st Contact Info) Description 12/11/2018 Orders Only [facility] Health Information Management [address] [place] [address] Scanning, Provider Social History Tobacco Use Types Packs/Day Years Used Date Smoking Tobacco: Never Smokeless Tobacco: Never Alcohol Use Standard Drinks/Week Comments No 0 (1 standard drink = 0.6 oz pur e alcohol) Comments No Sex and Gender Information Value Date Recorded Sex Assigned at Not on file 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 Gender Identity Not on file Sexual Orientation Not on file documented as of this encounter Plan of Treatment Scheduled Procedures Name Priority Associated Diagnoses Date/Ti me TRANSPLANT KIDNEY ESRD (end stage renal disease) (HCC) documented as of this encounter Procedures Procedure Name Priority Date/Time Associated Diagnosis Comments SCAN - LABS 12/11/2018 documented in this encounter Results * SCAN - LABS (12/11/2018) us Provider Scanning Final Result documented in this encounter Visit Diagnoses Not on filedocumented in this encounter Additional Health Concerns Infection Onset Date Last Indicated Resolved Time Influenza, adult 09/04/2019 09/04/2019 09/11/2019 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 [address] [place] [address] Mathematical Sciences Professor 08/21/19 Abdifatah Villa MD [address] [facility] [address] [place] [address] Consulting Physician Cardiology 09/01/20 Issa Clements MD [address] [facility] [address] [place] [address] Referring Physician General Surgery 09/01/20 documented as of this encounter
--- OUTSIDE RECORDS SUMMARY | 2024-11-05 14:51 | XMS_ITS ---
Author Organization [facility] [address] Address [address] [place] [address] Care Team Providers Care [place] Pumper Name Role Phone David Coppola MD Primary Care Provider [phone] Jacob Suarez MD Unavailable [phone] Ros Seay MD Unavailable [phone] Abdifatah Villa MD Unavailable Issa Clements MD Unavailable [phone] Dialysis Access Sites Type Status Location Placement Date Removal Da te AV graft Active Left Upper Arm - Anterior Hemodialysis AV Access Upper arm Active Left Upper Arm - Anterior AV fistula Active Right Upper Arm - Anterior Procedures Procedure Name Priority Date/Time Associated Diagnosis Comments US ARTERIAL DOPPLER LOWER EXTREMITY BILATERAL Schedule Routine, Read Routine (OP Routine) 10/30/2024 3:13 PM CDT Atherosclerosis of [place] arteries of extremities with intermittent claudication, bilateral legs VL US ARTERIAL DUPLEX LOWER EXTREMITY BILATERAL Schedule Routine, Read Routine (OP Routine) 10/30/2024 2:19 PM CDT Atherosclerosis of [place] arteries of extremities with intermittent claudication, bilateral legs POCT GLUCOSE DEVICE Routine 08/29/2024 1 1:37 AM COMMUNICATIONS TOWER TECHNICIAN HEPATITIS B SURFACE ANTIGEN STAT 08/29/2024 8:36 AM COMMUNICATIONS TOWER TECHNICIAN POCT GLUCOSE DEVICE Routine 08/29/2024 8 :02 AM COMMUNICATIONS TOWER TECHNICIAN EGFR Routine 08/28/2024 9:36 PM COMMUNICATIONS TOWER TECHNICIAN DIFFERENTIAL AUTO Routine 08/28/2024 9:3 6 PM COMMUNICATIONS TOWER TECHNICIAN CBC WITH AUTO DIFFERENTIAL Routine 08/28/2024 9:36 PM COMMUNICATIONS TOWER TECHNICIAN BASIC METABOLIC PANEL Routine 08/28/2024 9:36 PM COMMUNICATIONS TOWER TECHNICIAN POCT GLUCOSE DEVICE Routine 08/28/2024 8 :44 PM COMMUNICATIONS TOWER TECHNICIAN POCT GLUCOSE DEVICE Routine 08/28/2024 5 :22 PM COMMUNICATIONS TOWER TECHNICIAN POCT GLUCOSE DEVICE Routine 08/28/2024 1 :35 PM COMMUNICATIONS TOWER TECHNICIAN ANGIOGRAM LOWER EXTREMITY RIGHT Schedule Routine, Read Routine (OP Routine) 08/28/2024 11:54 AM COMMUNICATIONS TOWER TECHNICIAN Non-healing wound of right lower extremity Ischemia of foot Critical limb ischemia of right lower extremity (HCC) POCT ACTIVATED CLOTTING TIME, LOW RANGE Routine 08/28/2024 10:37 AM COMMUNICATIONS TOWER TECHNICIAN POCT ACTIVATED CLOTTING TIME, LOW RANGE Routine 08/28/2024 9:45 AM COMMUNICATIONS TOWER TECHNICIAN EGFR Routine 08/28/2024 6:06 AM COMMUNICATIONS TOWER TECHNICIAN PAD (peripheral artery disease) DIFFERENTIAL AUTO Routine 08/28/2024 6:0 6 AM COMMUNICATIONS TOWER TECHNICIAN PAD (peripheral artery disease) CBC WITH AUTO DIFFERENTIAL Routine 08/28/2024 6:06 AM COMMUNICATIONS TOWER TECHNICIAN PAD (peripheral artery disease) BASIC METABOLIC PANEL Routine 08/28/2024 6:06 AM COMMUNICATIONS TOWER TECHNICIAN PAD (peripheral artery disease) LIPID PANEL Routine 08/28/2024 6:06 AM COMMUNICATIONS TOWER TECHNICIAN PAD (peripheral artery disease) HEPATITIS C ANTIBODY Routine 08/19/2020 12:07 PM COMMUNICATIONS TOWER TECHNICIAN ESRD (end stage renal disease) (HCC) HEMOGLOBIN A1C Routine 09/04/2019 12:14 AM COMMUNICATIONS TOWER TECHNICIAN from Last 3 Months or Most Recently Relevant to Health Maintenance Allergies Active Allergy Reactions Criticality Noted Date [...] by mouth once a week On Sunday Active acetaminophen 500 mg capsule Take 2 [...] mouth Active traZODone (DESYREL) 50 mg tablet Active famotidine (PEPCID) 40 mg tablet Take 1 tablet (40 mg total) by mouth daily Active Prolia 60 mg/mL syringe Q 6 months Active Triphrocaps 1 mg capsule Take 1 capsule by mouth daily 08/16/2 022 Active sevelamer (RENVELA) 800 mg tabletIndications:Re [...] Date ARCADIO (obstructive sleep apnea)- concern for 08/29 Non-healing wound of right lower extremity 08/28 Peptic ulcer 08/28/2024 Assessment & Plan (08/28/2024 1:08 PM COMMUNICATIONS TOWER TECHNICIAN): History of peptic ulcer with GIB Denies sx continue PPI Heart valve disease 04/06/2023 History of GI bleed 02/04/2023 Bradycardia 09/29/2022 Bleeding 09/29/2022 Idiopathic hypotension 09/13/2021 Complication of arteriovenous dialysis fistula 0 09/07/2020 Type 2 diabetes mellitus wit h diabetic peripheral angiopathy and gangrene, without long-term current use of insulin 08/21/2020 Assessment & Plan (08/28/2024 1:05 PM COMMUNICATIONS TOWER TECHNICIAN): Home regimen Januvia, tresiba 10 and Victoza. Reviewed PCP records noted hypoglycemia last hospital admit with basal insulins continued Will continue januvia and hold tresiba and victoza SSI Family history of ischemic h eart disease and other diseases of the circulatory system 11/27/2019 Critical limb ischemia of right lower extremity 10/14/2019 Overview (10/14/2019): Added automatically from request for surgery [id number] Assessment & Plan (08/28/2024 12:59 PM COMMUNICATIONS TOWER TECHNICIAN): S/p uncomplicated balloon angioplasty of the AT, [...] (10/14/2019): Added automatically from request for surgery [id number] Presence of Watchman left atrial appendage closu re device 08/29/2018 Atrial fibrillation, permanent 06/13/2018 Overview (06/13/2018): Added automatically from request for surgery [id number] Assessment & Plan (08/28/2024 1:03 PM COMMUNICATIONS TOWER TECHNICIAN): Follows with [facility] cardiology. Rate controlled and s/p Watchman due to prior severe GIB Recently stopped coreg due to bradycardia ASA and plavix to start per IR recs post revascularization Assessment & Plan (07/24/2018 9:29 AM COMMUNICATIONS TOWER TECHNICIAN): Continue coreg. S/p Watchmann DAVIDA occluder implant for future deescalate anticoagulation. Continue apixiban for now as per EP. Post procedure CXR. 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 PAD (peripheral artery disease) 03/15/2018 Overview (03/15/2018): Added automatically from request for surgery [id number] Non-healing wound of lower extremity 03/15/2018 Overview (03/15/2018): Added automatically from request for surgery [id number] Ischemia of foot 03/15/2018 Overview (03/15/2018): Added automatically from request for surgery [id number] Noncompliance 02/24/2018 Essential hypertension 11/10/2017 Assessment & Plan (07/24/2018 9:27 AM COMMUNICATIONS TOWER TECHNICIAN): Continue home meds and dialysis. Hyperlipidemia associated with type 2 diabetes m ellitus 11/10/2017 ESRD (end stage renal disease) on dialysis 11/10 Assessment & Plan (08/29/2024 4:04 PM COMMUNICATIONS TOWER TECHNICIAN): Routine M/W/F r brachial fistula (has required multiple dilations last at [facility] 07/2024 Feeling well post procedure denies dyspnea. Renal consulted for HD prior to discharge Assessment & Plan (07/24/2018 9:26 AM COMMUNICATIONS TOWER TECHNICIAN): HD as per renal consult. 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 06/04/2017 Longstanding persistent atrial fibrillation 12/07 Idiopathic thrombocytopenic purpura 03/23/2015 Anemia, iron deficiency 05/06/2014 Type 2 diabetes mellitus without complication Immunizations Immunization Administration Dates Next Due Hep B, Unspecified 04/26/2018 Influenza, Trivalent, Preser vative Free, Intramuscular 04/08/2017 Influenza, Unspecified 03/22/2018,2014,12/15/2014,11/17,10/20/2014,06/23/2014,04/28/2014 ,04/07/2014 Pneumococcal Conjugate PCV 13 05/08/2019 Pneumococcal Polysaccharide PPV23 04/09/2014 Social History Tobacco Use Types Packs/Day Years [...] often do you attend chur ch or jain services? 1 to 4 times per year 09/04/2019 Do you belong to any clubs o r organizations such as anabaptism groups, unions, fraternal or athletic groups, or [...] on file Legal Sex Female 12:39 PM COMMUNICATIONS TOWER TECHNICIAN Gender Identity Not on file Sexual Orientation Not on file Last Filed Vital Signs Vital Sign Reading Time Taken Comments Blood Pressure 135/59 08/29/2024 12:45 PM COMMUNICATIONS TOWER TECHNICIAN Pulse 51 08/29/2024 12:45 PM COMMUNICATIONS TOWER TECHNICIAN Temperature 36.7 C (98.1 F) 08/29/2024 12:00 PM COMMUNICATIONS TOWER TECHNICIAN Respiratory Rate 22 08/29/2024 12:45 PM COMMUNICATIONS TOWER TECHNICIAN Oxygen Saturation 97% 08/29/2024 12:00 PM COMMUNICATIONS TOWER TECHNICIAN Inhaled Oxygen Concentration - - Weight 58.7 kg (129 lb 6.6 oz) 08/29/2024 7:35 A M COMMUNICATIONS TOWER TECHNICIAN Height 149.9 cm (4' 11 ) 08/28/2024 4:00 PM COMMUNICATIONS TOWER TECHNICIAN Body Mass Index 26.14 08/28/2024 4:00 PM COMMUNICATIONS TOWER TECHNICIAN Results * US MELISSA And Arterial Doppler [...] DATE: 10/30/2024 2:00 PM HISTORY: Atherosclerosis of [place] Arteries of Extremities with Intermittent Cladication, Bilateral [...] DATE: 10/30/2024 2:00 PM HISTORY: Atherosclerosis of [place] Arteries of Extremities with Intermittent Cladication, Bilateral [...] DATE: 10/30/2024 2:00 PM HISTORY: Atherosclerosis of [place] Arteries of Extremities with Intermittent Cladication, Bilateral [...] DATE: 10/30/2024 2:00 PM HISTORY: Atherosclerosis of [place] Arteries of Extremities with Intermittent Cladication, Bilateral [...] waveforms. Electronically signed by: Ar Aj M.D. us Anthony Gorman MD IMG US PROCEDURES Final Result * POCT glucose (08/29/2024 11:37 AM COMMUNICATIONS TOWER TECHNICIAN) Glucose, POC 110 70 - 199 mg/dL Blood 08/29/2024 11:3 7 AM COMMUNICATIONS TOWER TECHNICIAN 08/29/2024 11:37 AM COMMUNICATIONS TOWER TECHNICIAN Paulo Harper MD LAB POCT ORDERABLES - D EVICE Final Result Performing Organization Address City/[facility]/ZIP Co de Phone Number [facility] Department [place] [address] * Hepatitis B Surface Antigen Blood (08/29/2024 8:36 AM COMMUNICATIONS TOWER TECHNICIAN) [facility] HepBsAg Nonreactive Nonreactive Blood 08/29/2024 8:36 AM COMMUNICATIONS TOWER TECHNICIAN 08/29/2024 8:48 AM COMMUNICATIONS TOWER TECHNICIAN Leoncio zaragoza MD LAB MICROBIOLOGY - GENERAL ORDERABLES Final Result Performing Organization Address City/[facility] Co de Phone Number [facility] [place] [address] * POCT glucose (08/29/2024 8:02 AM COMMUNICATIONS TOWER TECHNICIAN) Glucose, POC 149 70 - 199 mg/dL Blood 08/29/2024 8:02 AM COMMUNICATIONS TOWER TECHNICIAN 08/29/2024 8:02 AM COMMUNICATIONS TOWER TECHNICIAN Paulo Harper MD LAB POCT ORDERABLES - D EVICE Final Result Performing Organization Address [facility] Co de Phone Number [facility] [place] [address] * (ABNORMAL) eGFR (08/28/2024 9:36 PM COMMUNICATIONS TOWER TECHNICIAN) [facility] eGFR 10(L) >=60 mL/min/1. 73 m2 [...] last reviewed 2021. Blood 08/28/2024 9:36 PM COMMUNICATIONS TOWER TECHNICIAN 08/28/2024 11:07 PM COMMUNICATIONS TOWER TECHNICIAN us Lindsay Gonzalez LEAD RADIOLOGIC TECHNOLOGIST LAB BLOOD ORDERABLES Fin al Result [facility] Department [place] [address] * Differential, auto (08/28/2024 9:36 PM COMMUNICATIONS TOWER TECHNICIAN) Neutrophil abs 2.9 1.5 - 6.5 K/cumm Imm gran abs 0.0 0.0 - 0.1 K/cumm [facility] Lymphocyte abs 1.0 0.8 - 3.3 K/cumm [facility] Monocyte abs 0.8 0.2 - 0.8 K/cumm [facility] Eosinophil abs 0.1 0.0 - 0.5 K/cumm [facility] Basophil abs 0.0 0.0 - 0.1 K/cumm [facility] Neutrophil pct 60.9 % [facility] Comment: Interpretive Data Percent cell count reference ranges are not reported, since discordance with absolute values may lead to misinterpretation of CBC data. Current Interpretive Data was last revised on 2017. Imm gran pct 0.4 % [facility] Comment: Interpretive Data Percent cell count reference ranges are not reported, since discordance with absolute values may lead to misinterpretation of CBC data. Current Interpretive Data was last revised on 2017. Lymphocyte pct 20.0 % [facility] Comment: Interpretive Data Percent cell count reference ranges are not reported, since discordance with absolute values may lead to misinterpretation of CBC data. Current Interpretive Data was last revised on 2017. Monocyte pct 17.1 % [facility] Comment: Interpretive Data Percent cell count reference ranges are not reported, since discordance with absolute values may lead to misinterpretation of CBC data. Current Interpretive Data was last revised on 2017. Eosinophil pct 1.2 % [facility] Comment: Interpretive Data Percent cell count reference ranges are not reported, since discordance with absolute values may lead to misinterpretation of CBC data. Current Interpretive Data was last revised on 2017. Basophil pct 0.4 % [facility] Comment: Interpretive Data Percent cell count reference ranges are not reported, since discordance with absolute values may lead to misinterpretation of CBC data. Current Interpretive Data was last revised on 2017. Blood 08/28/2024 9:36 PM COMMUNICATIONS TOWER TECHNICIAN 08/28/2024 11:07 PM COMMUNICATIONS TOWER TECHNICIAN us Lindsay Gonzalez LEAD RADIOLOGIC TECHNOLOGIST LAB BLOOD ORDERABLES Fin al Result [facility] Department [place] [address] * (ABNORMAL) CBC with auto differential (08/28/2024 9:36 PM COMMUNICATIONS TOWER TECHNICIAN) WBC 4.8 3.8 - 9.9 K/cumm Hgb 9.1(L) 11.9 - 15.5 g/dL [facility] Hct 31.6(L) 35.6 - 45.5 % [facility] Plt 93(L) 150 - 400 K/cumm [facility] MPV 11.9 9.1 - 12.3 fL [facility] RBC 2.99(L) 3.90 - 5.20 M/cumm [facility] MCV 105.7(H) 81.3 - 96.4 fL [facility] MCH 30.4 27.1 - 33.3 pg [facility] MCHC 28.8(L) 32.3 - 35.7 g/dL [facility] RDW CV 15.5(H) 11.1 - 14.9 % [facility] RDW SD 60.6(H) 35.7 - 48.1 fL [facility] NRBC abs 0.00 0.00 - 0.01 K/cumm [facility] Blood 08/28/2024 9:36 PM COMMUNICATIONS TOWER TECHNICIAN 08/28/2024 11:07 PM COMMUNICATIONS TOWER TECHNICIAN us Lindsay Gonzalez NP LAB BLOOD ORDERABLES Fin al Result [facility] Department [place] [address] * (ABNORMAL) Basic metabolic panel (08/28/2024 9:36 PM COMMUNICATIONS TOWER TECHNICIAN) Sodium 135 135 - 145 mmol/L Potassium, pl 4.4 3.3 - 4.9 mmol/L [facility] Chloride 93(L) 97 - 110 mmol/L [facility] CO2 33(H) 22 - 32 mmol/L [facility] Anion gap 9 2 - 15 mmol/L [facility] BUN 35(H) 6 - 25 mg/dL [facility] Creatinine 4.48(H) 0.60 - 1.10 mg/dL [facility] Glucose 124 70 - 199 mg/dL [facility] Comment: Interpretive Data Fasting glucose >/= 126 [...] 2022. Calcium 9.9 8.5 - 10.3 mg/dL [facility] Blood 08/28/2024 9:36 PM COMMUNICATIONS TOWER TECHNICIAN 08/28/2024 11:07 PM COMMUNICATIONS TOWER TECHNICIAN Lindsay Gonzalez NP LAB BLOOD ORDERABLES Fin al Result Performing Organization Address [facility] Co de Phone Number [facility] [place] [address] * POCT glucose (08/28/2024 8:44 PM COMMUNICATIONS TOWER TECHNICIAN) Glucose, POC 133 70 - 199 mg/dL Blood 08/28/2024 8:44 PM COMMUNICATIONS TOWER TECHNICIAN 08/28/2024 8:44 PM COMMUNICATIONS TOWER TECHNICIAN Vel Anglin MD LAB POCT ORDERABLES - DEVICE Fin al Result Performing Organization Address [facility] Co de Phone Number [facility] [address] * POCT glucose (08/28/2024 5:22 PM COMMUNICATIONS TOWER TECHNICIAN) Glucose, POC 196 70 - 199 mg/dL Blood 08/28/2024 5:22 PM COMMUNICATIONS TOWER TECHNICIAN 08/28/2024 5:22 PM COMMUNICATIONS TOWER TECHNICIAN Vel Anglin MD LAB POCT ORDERABLES - DEVICE Fin al Result Performing Organization Address [facility] Co de Phone Number [facility] [place] [address] * POCT glucose (08/28/2024 1:35 PM COMMUNICATIONS TOWER TECHNICIAN) Glucose, POC 139 70 - 199 mg/dL Blood 08/28/2024 1:35 PM COMMUNICATIONS TOWER TECHNICIAN 08/28/2024 1:35 PM COMMUNICATIONS TOWER TECHNICIAN us Vel Anglin MD LAB POCT ORDERABLES - DEVICE Fin al Result [facility] Department [place] [address] * IR Angiogram Lower Extremity Right (08/28/2024 11:54 AM COMMUNICATIONS TOWER TECHNICIAN) Anatomical Region Laterality Modality Extremity Right X-Ray Angiograph y 08/28/2024 4:58 PM COMMUNICATIONS TOWER TECHNICIAN Impressions 08/28/2024 5:27 PM COMMUNICATIONS TOWER TECHNICIAN Successful revascularization of the right anterior tibial, [...] Anthony Gorman M.D. Narrative 08/28/2024 5:27 PM COMMUNICATIONS TOWER TECHNICIAN EXAMINATION: RIGHT LOWER EXTREMITY ANGIOGRAM WITH REVASCULARIZATION [...] was obtained. Prior to beginning the procedure, Ralph Protocol was performed to confirm the patient's [...] the patent vessel was recorded. A 6 [place] sheath was placed. An abdominal aortogram was performed. The angiographic catheter was advanced to the right common femoral artery and the right lower extremity angiogram was performed in stations to the foot A 6-[place] x 65 cm sheath was advanced to [...] was obtained. Prior to beginning the procedure, Ralph Protocol was performed to confirm the patient's [...] the patent vessel was recorded. A 6 [place] sheath was placed. An abdominal aortogram was performed. The angiographic catheter was advanced to the right common femoral artery and the right lower extremity angiogram was performed in stations to the foot A 6-[place] x 65 cm sheath was advanced to [...] clotting time, low range (08/28/2024 10:37 AM COMMUNICATIONS TOWER TECHNICIAN) ACT 331(H) 123 - 168 sec POC Performer [id number] [facility] POC Device Number [id number] [facility] Blood 08/28/2024 10:3 7 AM COMMUNICATIONS TOWER TECHNICIAN 08/28/2024 10:37 AM COMMUNICATIONS TOWER TECHNICIAN Paulo Harper MD LAB POCT ORDERABLES - D EVICE Final Result [facility] [place] [address] * (ABNORMAL) POCT Activated clotting time, low range (08/28/2024 9:45 AM COMMUNICATIONS TOWER TECHNICIAN) [facility] ACT >400(H) 123 - 168 sec POC Performer [id number] [facility] POC Device Number [id number] [facility] Blood 08/28/2024 9:45 AM COMMUNICATIONS TOWER TECHNICIAN 08/28/2024 9:45 AM COMMUNICATIONS TOWER TECHNICIAN us Paulo Harper MD LAB POCT ORDERABLES - D EVICE Final Result [facility] [place] [address] * (ABNORMAL) eGFR (08/28/2024 6:06 AM COMMUNICATIONS TOWER TECHNICIAN) [facility] eGFR 12(L) >=60 mL/min/1. 73 m2 Comment: [...] last reviewed 2021. Blood 08/28/2024 6:06 AM COMMUNICATIONS TOWER TECHNICIAN 08/28/2024 6:29 AM COMMUNICATIONS TOWER TECHNICIAN us Anthony Gorman MD LAB BLOOD ORDERABLES Fi nal Result [facility] Department [place] [address] * Differential, auto (08/28/2024 6:06 AM COMMUNICATIONS TOWER TECHNICIAN) Neutrophil abs 2.2 1.5 - 6.5 K/cumm Imm gran abs 0.0 0.0 - 0.1 K/cumm [facility] Lymphocyte abs 0.8 0.8 - 3.3 K/cumm [facility] Monocyte abs 0.7 0.2 - 0.8 K/cumm [facility] Eosinophil abs 0.0 0.0 - 0.5 K/cumm [facility] Basophil abs 0.0 0.0 - 0.1 K/cumm [facility] Neutrophil pct 58.7 % [facility] Comment: Interpretive Data Percent cell count reference ranges are not reported, since discordance with absolute values may lead to misinterpretation of CBC data. Current Interpretive Data was last revised on 2017. Imm gran pct 0.3 % [facility] Comment: Interpretive Data Percent cell count reference ranges are not reported, since discordance with absolute values may lead to misinterpretation of CBC data. Current Interpretive Data was last revised on 2017. Lymphocyte pct 21.3 % [facility] Comment: Interpretive Data Percent cell count reference ranges are not reported, since discordance with absolute values may lead to misinterpretation of CBC data. Current Interpretive Data was last revised on 2017. Monocyte pct 18.4 % [facility] Comment: Interpretive Data Percent cell count reference ranges are not reported, since discordance with absolute values may lead to misinterpretation of CBC data. Current Interpretive Data was last revised on 2017. Eosinophil pct 0.8 % [facility] Comment: Interpretive Data Percent cell count reference ranges are not reported, since discordance with absolute values may lead to misinterpretation of CBC data. Current Interpretive Data was last revised on 2017. Basophil pct 0.5 % [facility] Comment: Interpretive Data Percent cell count reference ranges are not reported, since discordance with absolute values may lead to misinterpretation of CBC data. Current Interpretive Data was last revised on 2017. Blood 08/28/2024 6:06 AM COMMUNICATIONS TOWER TECHNICIAN 08/28/2024 6:29 AM COMMUNICATIONS TOWER TECHNICIAN Anthony Gorman MD LAB BLOOD ORDERABLES Fi nal Result Performing Organization Address [facility] Co de Phone Number [facility] [place] [address] * (ABNORMAL) CBC with auto differential (08/28/2024 6:06 AM COMMUNICATIONS TOWER TECHNICIAN) WBC 3.8 3.8 - 9.9 K/cumm Hgb 9.9(L) 11.9 - 15.5 g/dL [facility] Hct 32.6(L) 35.6 - 45.5 % [facility] Plt 105(L) 150 - 400 K/cumm [facility] MPV 11.8 9.1 - 12.3 fL [facility] RBC 3.17(L) 3.90 - 5.20 M/cumm [facility] MCV 102.8(H) 81.3 - 96.4 fL [facility] MCH 31.2 27.1 - 33.3 pg [facility] MCHC 30.4(L) 32.3 - 35.7 g/dL [facility] RDW CV 15.5(H) 11.1 - 14.9 % [facility] RDW SD 58.4(H) 35.7 - 48.1 fL [facility] NRBC abs 0.00 0.00 - 0.01 K/cumm [facility] Blood 08/28/2024 6:06 AM COMMUNICATIONS TOWER TECHNICIAN 08/28/2024 6:29 AM COMMUNICATIONS TOWER TECHNICIAN Anthony Gorman MD LAB BLOOD ORDERABLES Fi nal Result Performing Organization Address City/[facility]/ZIP Co de Phone Number [facility] [place] [address] * Lipid panel (08/28/2024 6:06 AM COMMUNICATIONS TOWER TECHNICIAN) Cholesterol 114 30 - 199 mg/dL Comment: [...] revised on 2018. Triglycerides 77 <=149 mg/dL [facility] Comment: Interpretive Data Ages < [...] revised on 2018. HDL 66 >=40 mg/dL [facility] Comment: Interpretive Data Ages < [...] on 2018. LDL, calculated 32 <=129 mg/dL [facility] Comment: Interpretive Data Ages < [...] NCEP Expert Panel. Circulation 2004;110:227 3. Harjinder Gastelum et al. ANTON Cardiol. 2020 November 06;5(5):540-548. doi: [email or web address] Current Interpretive Data was last revised on 2024. Non-HDL Cholesterol 48 mg/dL [facility] Comment: Interpretive Data Ages < [...] last revised on 2018. Chol/HDL ratio 2 [facility] Blood 08/28/2024 6:06 AM COMMUNICATIONS TOWER TECHNICIAN 08/28/2024 6:29 AM COMMUNICATIONS TOWER TECHNICIAN Anthony Gorman MD LAB BLOOD ORDERABLES Fi nal Result [facility] Department of Laboratories [place], [place] [id number] * (ABNORMAL) Basic metabolic panel (08/28/2024 6:06 AM COMMUNICATIONS TOWER TECHNICIAN) Sodium 138 135 - 145 mmol/L Potassium, pl 4.4 3.3 - 4.9 mmol/L [facility] Chloride 94(L) 97 - 110 mmol/L [facility] CO2 37(H) 22 - 32 mmol/L [facility] Anion gap 7 2 - 15 mmol/L [facility] BUN 26(H) 6 - 25 mg/dL [facility] Creatinine 3.76(H) 0.60 - 1.10 mg/dL [facility] Glucose 139 70 - 199 mg/dL [facility] Comment: Interpretive Data Fasting glucose >/= 126 [...] 2022. Calcium 10.7(H) 8.5 - 10.3 mg/dL [facility] Blood 08/28/2024 6:06 AM COMMUNICATIONS TOWER TECHNICIAN 08/28/2024 6:29 AM COMMUNICATIONS TOWER TECHNICIAN Anthony Gorman MD LAB BLOOD ORDERABLES Fi nal Result Performing Organization Address [facility]/ZIP Co de Phone Number [facility] [place] [address] * Hepatitis C antibody (08/19/2020 12:07 PM COMMUNICATIONS TOWER TECHNICIAN) Hep C Ab Nonreactive Nonreactive [facility] Comment:Antibodies to HCV no t detected. Does NOT exclude the possibility of recent exposure to HCV. Blood specimen (specimen) 08/19/2020 12:07 PM COMMUNICATIONS TOWER TECHNICIAN 08/19/2020 12:15 PM COMMUNICATIONS TOWER TECHNICIAN Humza Trevizo MD LAB MICROB IOLOGY - GENERAL ORDERABLES Edited Result - Final Performing Organization Address City/[facility]/ZIP Co de Phone Number [facility] [place] [address] * (ABNORMAL) Hemoglobin A1c (09/04/2019 12:14 AM COMMUNICATIONS TOWER TECHNICIAN) Hgb A1C 8.2(H) 4.0 - 5.6 % [facility] Estimated Average Glucose 189 mg/dL [facility] Comment: The ADA recommends reporting an estimated Average Glucose (eAG) with all Hemoglobin A1c results using the equation derived from a study of 507 normal and diabetic adults. Minority populations were underrepresented and children were not included. (Diabetes Care 31:0714-5286, 2008). The eAG is not equivalent to a fasting glucose. Blood specimen (specimen) 09/04/2019 12:14 AM COMMUNICATIONS TOWER TECHNICIAN 09/04/2019 12:58 AM COMMUNICATIONS TOWER TECHNICIAN us Brandin Pena MD LAB BLOOD ORDERABLES Final Result [facility] MCNALLY [facility] [place] [address] from Last 3 Months or Most Recently Relevant to Health Maintenance
--- OUTSIDE RECORDS SUMMARY | 2024-11-05 14:51 | XMS_ITS | Referral Summary ---
Author Organization [facility] [address] Address [address] [place] [address] Care Team Providers Care Neon Installer Name Role Phone David Coppola MD Primary Care Provider [phone] Jacob Suarez MD Unavailable Ros Seay MD Unavailable [phone] Abdifatah Villa MD Unavailable Issa Clements MD Unavailable [phone] Encounters Date Type Department Care Team Description 11/05/2024 Telephone [facility] Radiology [address] [place] [address] Alena Fontenot, RN 11/04/2024 Telephone [facility] Radiology [address] [place] [address] Alena Fontenot, RN 10/30/2024 1:14 PM CDT - 10/30/2024 11:59 PM CDT Hospital Encounter [facility] [address] [place] [id number] Atherosclerosis of [place] arteries of extremities with intermittent claudication, bilateral legs Discharge Disposition: Discharge to home or self care 10/30/2024 1:00 PM CDT - 10/30/2024 11:59 PM CDT Hospital Encounter [facility] [id number] [place] [address] [id number] Atherosclerosis of [place] arteries of extremities with intermittent claudication, bilateral legs Discharge Disposition: Discharge to home or self care 10/24/2024 Orders Only [facility] Radiology [address] [place] [address] Alena Fontenot, RN Atherosclerosis of [place] arteries of extremities with intermittent claudication, bilateral legs (Primary Dx) 08/28/2024 12:03 PM PEANUT SHELLER - 08/29/2024 4:56 PM PEANUT SHELLER Hospital Encounter [address] [address] Paulo Harper MD Patel, Kieran, MD Guevara, Carlos Javier, MD ARCADIO (obstructive sleep apnea)- concern for (Primary Dx); Non-healing wound of right lower extremity; Ischemia of foot; Critical limb ischemia of right lower extremity (HCC) Discharge Disposition: Discharge to [facility] 08/28/2024 Telephone Radiology 1 [place] [address] Hollie Martinez PA 08/28/2024 6:00 AM PEANUT SHELLER Office Visit [facility] [address] [facility] 1st [place] [address] PAD (peripheral artery disease) 08/25/2024 Telephone [facility] Radiology 1 [place] [address] Tomy Reynolds RN 08/22/2024 Telephone [facility]iology [address] [place] [address] Alena Fontenot, ABENA 08/22/2024 2:30 PM PEANUT SHELLER Telemedicine [facility] Radiology, Interventional Radiology [address] [facility] [address] [place] [id number] Anthony Gorman MD Longstanding persistent atrial fibrillation (HCC) (Primary Dx); Hyperlipidemia associated with type 2 diabetes mellitus (HCC); Critical ischemia of foot (HCC); Type 2 diabetes mellitus with diabetic peripheral angiopathy and gangrene, without long-term current use of insulin (HCC); Critical limb ischemia of left lower extremity (HCC); Critical limb ischemia of right lower extremity (HCC); PAD (peripheral artery disease) 08/22/2024 Telephone [facility] Radiology 1 [place] [address] Alena Fontenot RN 08/22/2024 Orders Only [facility] 1 [place] [address] Alena Fontenot, RN PAD (peripheral artery disease) (Primary Dx) from Last 3 Months Allergies Active Allergy Reactions Criticality Noted Date [...] 08/28/2024 Assessment & Plan (08/28/2024 1:08 PM PEANUT SHELLER): History of peptic ulcer with GIB Denies sx continue PPI Heart valve disease 04/06/2023 History of GI bleed 02/04/2023 Bradycardia 09/29/2022 Bleeding 09/29/2022 Idiopathic hypotension 09/13/2021 Complication of arteriovenous dialysis fistula 0 09/07/2020 Type 2 diabetes mellitus wit h diabetic peripheral angiopathy and gangrene, without long-term current use of insulin 08/21/2020 Assessment & Plan (08/28/2024 1:05 PM PEANUT SHELLER): Home regimen Januvia, tresiba 10 and Victoza. Reviewed PCP records noted hypoglycemia last hospital admit with basal insulins continued Will continue januvia and hold tresiba and victoza SSI Family history of ischemic h eart disease and other diseases of the circulatory system 11/27/2019 Critical limb ischemia of right lower extremity 10/14/2019 Overview (10/14/2019): Added automatically from request for surgery [id number] Assessment & Plan (08/28/2024 12:59 PM PEANUT SHELLER): S/p uncomplicated balloon angioplasty of the AT, [...] (10/14/2019): Added automatically from request for surgery [id number] Presence of Watchman left atrial appendage closu re device 08/29/2018 Atrial fibrillation, permanent 06/13/2018 Overview (06/13/2018): Added automatically from request for surgery [id number] Assessment & Plan (08/28/2024 1:03 PM PEANUT SHELLER): Follows with [facility] cardiology. Rate controlled and s/p Watchman due to prior severe GIB Recently stopped coreg due to bradycardia ASA and plavix to start per IR recs post revascularization Assessment & Plan (07/24/2018 9:29 AM PEANUT SHELLER): Continue coreg. S/p Watchmann DAVIDA occluder implant for future deescalate anticoagulation. Continue apixiban for now as per EP. Post procedure CXR. 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 PAD (peripheral artery disease) 03/15/2018 Overview (03/15/2018): Added automatically from request for surgery [id number] Non-healing wound of lower extremity 03/15/2018 Overview (03/15/2018): Added automatically from request for surgery [id number] Ischemia of foot 03/15/2018 Overview (03/15/2018): Added automatically from request for surgery [id number] Noncompliance 02/24/2018 Essential hypertension 11/10/2017 Assessment & Plan (07/24/2018 9:27 AM PEANUT SHELLER): Continue home meds and dialysis. Hyperlipidemia associated with type 2 diabetes m ellitus 11/10/2017 ESRD (end stage renal disease) on dialysis 11/10 Assessment & Plan (08/29/2024 4:04 PM PEANUT SHELLER): Routine M/W/F r brachial fistula (has required multiple dilations last at [facility] 07/2024 Feeling well post procedure denies dyspnea. Renal consulted for HD prior to discharge Assessment & Plan (07/24/2018 9:26 AM PEANUT SHELLER): HD as per renal consult. Resume outpt [...] Resolved Date Coronary artery disease invo lving [place] coronary artery of [place] heart without angina pectoris 03/07/2021 03/07/2021 Preoperative cardiovascular examination 03/07/2021 09/29/2022 Hypoxia 11/27/2019 04/03/2023 Toe ulcer, left, with unspecified severity 09/16/2018 03/07/2021 Overview (09/16/2018): Added automatically from request for surgery [id number] Cough 11/10/2017 03/07/2021 Lumbago 06/04/2017 03/07/2021 Pain of lower extremity 06/04/2017/12/2022 Chronic anticoagulation 08/22/201610/2018 Overview (10/12/2016): Chronic anticoagulation Stage 4 chronic kidney disease 04/21/2014 04/03/2023 Pain in joint 03/04/2014 04/03/2023 Paroxysmal atrial fibrillation 05/06/2024 ESRD (end stage renal disease) ([facility]) 03/07/2021 Pre-transplant evaluation fo r kidney transplant 04/03/2023 Immunizations Immunization Administration Dates Next Due Hep [...] often do you attend chur ch or sabianist services? 1 to 4 times per year 09/04/2019 Do you belong to any clubs o r organizations such as bahai groups, unions, fraternal or athletic groups, or [...] on file Legal Sex Female 12:39 PM PEANUT SHELLER Gender Identity Not on file Sexual Orientation Not on file Last Filed Vital Signs Vital Sign Reading Time Taken Comments Blood Pressure 135/59 08/29/2024 12:45 PM PEANUT SHELLER Pulse 51 08/29/2024 12:45 PM PEANUT SHELLER Temperature 36.7 C (98.1 F) 08/29/2024 12:00 PM PEANUT SHELLER Respiratory Rate 22 08/29/2024 12:45 PM PEANUT SHELLER Oxygen Saturation 97% 08/29/2024 12:00 PM PEANUT SHELLER Inhaled Oxygen Concentration - - Weight 58.7 kg (129 lb 6.6 oz) 08/29/2024 7:35 A M PEANUT SHELLER Height 149.9 cm (4' 11 ) 08/28/2024 4:00 PM PEANUT SHELLER Body Mass Index 26.14 08/28/2024 4:00 PM PEANUT SHELLER Plan of Treatment Scheduled Procedures Name Priority Associated Diagnoses Date/Ti me TRANSPLANT KIDNEY ESRD (end stage renal disease) (HCC) Medical Devices Implanted Type Area Bathroom Tiling Professional Device Identifier Shelf Expiration Date Model / Serial / Lot Device Clsr 27mm Davida Means - [id number] - [id number] Implanted:Qty : 1 on 07/23/2018 by Mike Mccloud MD PhD at [facility] Other - see comments Left: Heart [employer] Media 12/13/2020 27MM-DAVIDA CLOSURE DEVICE / [id number] / [id number] Description:Left atrial appe ndage closure device Watchman Daig Breanna/[employer] [id number] Angio-Seal Vip Bondek-Plus 6fr .035in 70cm Hemostatic Latex Free - [id number] Implanted:Qty : 1 on 03/20/2018 by Abdifatah Villa MD at [facility]/[employer] 12/06/2018 [id number] / / [id number] Device Davida Watchman Procedure - [id number] Implanted:Qty : 1 on 07/23/2018 by Mike Mccloud MD PhD at [facility] [employer] Breanna [id number] 1 - 3 PC / / Description:1 Device Daig Breanna/[employer] [id number] Angio-Seal Vip Bondek-Plus 6fr .035in 70cm Hemostatic Latex Free - [id number] Implanted:Qty : 1 on 09/26/2018 by Abdifatah Villa MD at [facility]/[employer] 06/07/2019 [id number] / / [id number] Daig Breanna [id number] Device Closure Angio-Seal Vip Bondek-Plus Polyglyd L70 Cm Od6 Fr Odsec.035 In Vascular - [id number] Implanted:Qty : 1 on 10/16/2019 by Abdifatah Villa MD at [facility]/[employer] [id number] / / [employer] Device 6fr Closure Celt Acd Vascular Sterile Latex Free Disposable [facility] - [id number] Implanted:Qty : 1 on 08/28/2024 at [facility] [employer] 01/01/2027 [facility]-06 / / [id number] Procedures Procedure Name Priority Date/Time Associated Diagnosis Comments US ARTERIAL DOPPLER LOWER EXTREMITY BILATERAL Schedule Routine, Read Routine (OP Routine) 10/30/2024 3:13 PM CDT Atherosclerosis of [place] arteries of extremities with intermittent claudication, bilateral legs US ARTERIAL DUPLEX LOWER EXTREMITY BILATERAL Schedule Routine, Read Routine (OP Routine) 10/30/2024 2:19 PM CDT Atherosclerosis of [place] arteries of extremities with intermittent claudication, bilateral legs POCT GLUCOSE DEVICE Routine 08/29/2024 1 1:37 AM PEANUT SHELLER HEPATITIS B SURFACE ANTIGEN STAT 08/29/2024 8:36 AM PEANUT SHELLER POCT GLUCOSE DEVICE Routine 08/29/2024 8 :02 AM PEANUT SHELLER EGFR Routine 08/28/2024 9:36 PM PEANUT SHELLER DIFFERENTIAL AUTO Routine 08/28/2024 9:3 6 PM PEANUT SHELLER CBC WITH AUTO DIFFERENTIAL Routine 08/28/2024 9:36 PM PEANUT SHELLER BASIC METABOLIC PANEL Routine 08/28/2024 9:36 PM PEANUT SHELLER POCT GLUCOSE DEVICE Routine 08/28/2024 8 :44 PM PEANUT SHELLER POCT GLUCOSE DEVICE Routine 08/28/2024 5 :22 PM PEANUT SHELLER POCT GLUCOSE DEVICE Routine 08/28/2024 1 :35 PM PEANUT SHELLER ANGIOGRAM LOWER EXTREMITY RIGHT Schedule Routine, Read Routine (OP Routine) 08/28/2024 11:54 AM PEANUT SHELLER Non-healing wound of right lower extremity Ischemia of foot Critical limb ischemia of right lower extremity (HCC) POCT ACTIVATED CLOTTING TIME, LOW RANGE Routine 08/28/2024 10:37 AM PEANUT SHELLER POCT ACTIVATED CLOTTING TIME, LOW RANGE Routine 08/28/2024 9:45 AM PEANUT SHELLER EGFR Routine 08/28/2024 6:06 AM PEANUT SHELLER PAD (peripheral artery disease) DIFFERENTIAL AUTO Routine 08/28/2024 6:0 6 AM PEANUT SHELLER PAD (peripheral artery disease) CBC WITH AUTO DIFFERENTIAL Routine 08/28/2024 6:06 AM PEANUT SHELLER PAD (peripheral artery disease) BASIC METABOLIC PANEL Routine 08/28/2024 6:06 AM PEANUT SHELLER PAD (peripheral artery disease) LIPID PANEL Routine 08/28/2024 6:06 AM PEANUT SHELLER PAD (peripheral artery disease) HEPATITIS C ANTIBODY Routine 08/19/2020 12:07 PM PEANUT SHELLER ESRD (end stage renal disease) (HCC) HEMOGLOBIN A1C Routine 09/04/2019 12:14 AM PEANUT SHELLER from Last 3 Months or Most Recently [...] vessels given monophasic waveforms. Electronically signed by: rA Aj M.D. Narrative 10/30/2024 5:42 PM CDT EXAMINATION: BILATERAL LOWER EXTREMITY ARTERY DUPLEX WITH ABIS DATE: 10/30/2024 2:00 PM HISTORY: Atherosclerosis of [place] Arteries of Extremities with Intermittent Cladication, Bilateral [...] DATE: 10/30/2024 2:00 PM HISTORY: Atherosclerosis of [place] Arteries of Extremities with Intermittent Cladication, Bilateral [...] DATE: 10/30/2024 2:00 PM HISTORY: Atherosclerosis of [place] Arteries of Extremities with Intermittent Cladication, Bilateral [...] DATE: 10/30/2024 2:00 PM HISTORY: Atherosclerosis of [place] Arteries of Extremities with Intermittent Cladication, Bilateral [...] Result * POCT glucose (08/29/2024 11:37 AM PEANUT SHELLER) Glucose, POC 110 70 - 199 mg/dL Blood 08/29/2024 11:3 7 AM PEANUT SHELLER 08/29/2024 11:37 AM PEANUT SHELLER Paulo Harper MD LAB POCT ORDERABLES - D EVICE Final Result Performing Organization Address [facility]/ZIP Co de Phone Number [facility] [place] [place] [address] * Hepatitis B Surface Antigen Blood (08/29/2024 8:36 AM PEANUT SHELLER) Pathologist [facility] HepBsAg Nonreactive Nonreactive Blood 08/29/2024 8:36 AM PEANUT SHELLER 08/29/2024 8:48 AM PEANUT SHELLER Leoncio zaragoza MD LAB MICROBIOLOGY - GENERAL ORDERABLES Final Result Performing Organization Address City/[facility] Co de Phone Number [facility] Department [place] [employer] [place] [address] * POCT glucose (08/29/2024 8:02 AM PEANUT SHELLER) Glucose, POC 149 70 - 199 mg/dL Blood 08/29/2024 8:02 AM PEANUT SHELLER 08/29/2024 8:02 AM PEANUT SHELLER Paulo Harper MD LAB POCT ORDERABLES - D EVICE Final Result Performing Organization Address [facility] Co de Phone Number [facility] Department [place] [address] * (ABNORMAL) eGFR (08/28/2024 9:36 PM PEANUT SHELLER) Pathologist [facility] eGFR 10(L) >=60 mL/min/1. 73 m2 Comment: [...] last reviewed 2021. Blood 08/28/2024 9:36 PM PEANUT SHELLER 08/28/2024 11:07 PM PEANUT SHELLER us Lindsay Gonzalez STEAM TRAP WORKER LAB BLOOD ORDERABLES Fin al Result [facility] [address] [facility] Department [place] [address] * Differential, auto (08/28/2024 9:36 PM PEANUT SHELLER) [facility] Neutrophil abs 2.9 1.5 - 6.5 K/cumm Imm gran abs 0.0 0.0 - 0.1 K/cumm [facility] Lymphocyte abs 1.0 0.8 - 3.3 K/cumm [facility] Monocyte abs 0.8 0.2 - 0.8 K/cumm [facility] Eosinophil abs 0.1 0.0 - 0.5 K/cumm [facility] Basophil abs 0.0 0.0 - 0.1 K/cumm [facility] Neutrophil pct 60.9 % [facility] Comment: Interpretive Data Percent cell count reference ranges are not reported, since discordance with absolute values may lead to misinterpretation of CBC data. Current Interpretive Data was last revised on 2017. Imm gran pct 0.4 % [facility] Comment: Interpretive Data Percent cell count reference ranges are not reported, since discordance with absolute values may lead to misinterpretation of CBC data. Current Interpretive Data was last revised on 2017. Lymphocyte pct 20.0 % [facility] Comment: Interpretive Data Percent cell count reference ranges are not reported, since discordance with absolute values may lead to misinterpretation of CBC data. Current Interpretive Data was last revised on 2017. Monocyte pct 17.1 % [facility] Comment: Interpretive Data Percent cell count reference ranges are not reported, since discordance with absolute values may lead to misinterpretation of CBC data. Current Interpretive Data was last revised on 2017. Eosinophil pct 1.2 % [facility] Comment: Interpretive Data Percent cell count reference ranges are not reported, since discordance with absolute values may lead to misinterpretation of CBC data. Current Interpretive Data was last revised on 2017. Basophil pct 0.4 % [facility] Comment: Interpretive Data Percent cell count reference ranges are not reported, since discordance with absolute values may lead to misinterpretation of CBC data. Current Interpretive Data was last revised on 2017. Blood 08/28/2024 9:36 PM PEANUT SHELLER 08/28/2024 11:07 PM PEANUT SHELLER us Lindsay Gonzalez STEAM TRAP WORKER LAB BLOOD ORDERABLES Fin al Result [facility] Department [place] [address] * (ABNORMAL) CBC with auto differential (08/28/2024 9:36 PM PEANUT SHELLER) WBC 4.8 3.8 - 9.9 K/cumm Hgb 9.1(L) 11.9 - 15.5 g/dL [facility] Hct 31.6(L) 35.6 - 45.5 % [facility] Plt 93(L) 150 - 400 K/cumm [facility] MPV 11.9 9.1 - 12.3 fL [facility] RBC 2.99(L) 3.90 - 5.20 M/cumm [facility] MCV 105.7(H) 81.3 - 96.4 fL [facility] MCH 30.4 27.1 - 33.3 pg [facility] MCHC 28.8(L) 32.3 - 35.7 g/dL [facility] RDW CV 15.5(H) 11.1 - 14.9 % [facility] RDW SD 60.6(H) 35.7 - 48.1 fL [facility] NRBC abs 0.00 0.00 - 0.01 K/cumm [facility] Blood 08/28/2024 9:36 PM PEANUT SHELLER 08/28/2024 11:07 PM PEANUT SHELLER Lindsay Gonzalez NP LAB BLOOD ORDERABLES Fin al Result Performing Organization Address City/State/[facility] Co de Phone Number [facility] Department [place] [address] * (ABNORMAL) Basic metabolic panel (08/28/2024 9:36 PM PEANUT SHELLER) Sodium 135 135 - 145 mmol/L Potassium, pl 4.4 3.3 - 4.9 mmol/L [facility] Chloride 93(L) 97 - 110 mmol/L [facility] CO2 33(H) 22 - 32 mmol/L [facility] Anion gap 9 2 - 15 mmol/L [facility] BUN 35(H) 6 - 25 mg/dL [facility] Creatinine 4.48(H) 0.60 - 1.10 mg/dL [facility] Glucose 124 70 - 199 mg/dL [facility] Comment: Interpretive Data Fasting [...] 2022. Calcium 9.9 8.5 - 10.3 mg/dL [facility] Blood 08/28/2024 9:36 PM PEANUT SHELLER 08/28/2024 11:07 PM PEANUT SHELLER Lindsay Gonzalez STEAM TRAP WORKER LAB BLOOD ORDERABLES Fin al Result Performing Organization Address City/[facility] Co de Phone Number [facility] [place] [place] [address] * POCT glucose (08/28/2024 8:44 PM PEANUT SHELLER) Glucose, POC 133 70 - 199 mg/dL Blood 08/28/2024 8:44 PM PEANUT SHELLER 08/28/2024 8:44 PM PEANUT SHELLER Vel Anglin MD LAB POCT ORDERABLES - DEVICE Fin al Result Performing Organization Address [facility] Co de Phone Number [facility] [place] [place] [address] * POCT glucose (08/28/2024 5:22 PM PEANUT SHELLER) Glucose, POC 196 70 - 199 mg/dL Blood 08/28/2024 5:22 PM PEANUT SHELLER 08/28/2024 5:22 PM PEANUT SHELLER Vel Anglin MD LAB POCT ORDERABLES - DEVICE Fin al Result Performing Organization Address [facility] Co de Phone Number [facility] [place] [place] [address] * POCT glucose (08/28/2024 1:35 PM PEANUT SHELLER) Glucose, POC 139 70 - 199 mg/dL Blood 08/28/2024 1:35 PM PEANUT SHELLER 08/28/2024 1:35 PM PEANUT SHELLER us Vel Anglin MD LAB POCT ORDERABLES - DEVICE Fin al Result [facility] Department [place] [address] * IR Angiogram Lower Extremity Right (08/28/2024 11:54 AM PEANUT SHELLER) Anatomical Region Laterality Modality Extremity Right X-Ray Angiograph y 08/28/2024 4:58 PM PEANUT SHELLER Impressions 08/28/2024 5:27 PM PEANUT SHELLER Successful revascularization of the right anterior tibial, [...] Anthony Gorman M.D. Narrative 08/28/2024 5:27 PM PEANUT SHELLER EXAMINATION: RIGHT LOWER EXTREMITY ANGIOGRAM WITH REVASCULARIZATION [...] was obtained. Prior to beginning the procedure, [place] Protocol was performed to confirm the patient's [...] the patent vessel was recorded. A 6 Luxembourger sheath was placed. An abdominal aortogram was performed. The angiographic catheter was advanced to the right common femoral artery and the right lower extremity angiogram was performed in stations to the foot A 6-Luxembourger x 65 cm sheath was advanced to [...] was obtained. Prior to beginning the procedure, [place] Protocol was performed to confirm the patient's [...] the patent vessel was recorded. A 6 Luxembourger sheath was placed. An abdominal aortogram was performed. The angiographic catheter was advanced to the right common femoral artery and the right lower extremity angiogram was performed in stations to the foot A 6-Luxembourger x 65 cm sheath was advanced to [...] clotting time, low range (08/28/2024 10:37 AM PEANUT SHELLER) ACT 331(H) 123 - 168 sec POC Performer [id number] [facility] POC Device Number [id number] [facility] Blood 08/28/2024 10:3 7 AM PEANUT SHELLER 08/28/2024 10:37 AM PEANUT SHELLER Paulo Harper MD LAB POCT ORDERABLES - D EVICE Final Result Performing Organization Address City/State/[facility] Co de Phone Number [facility] Department [place] [address] * (ABNORMAL) POCT Activated clotting time, low range (08/28/2024 9:45 AM PEANUT SHELLER) ACT >400(H) 123 - 168 sec POC Performer [id number] [facility] POC Device Number [id number] [facility] Blood 08/28/2024 9:45 AM PEANUT SHELLER 08/28/2024 9:45 AM PEANUT SHELLER us Paulo Harper MD LAB POCT ORDERABLES - D EVICE Final Result Performing Organization Address [facility] de Phone Number [facility] [place] [address] * (ABNORMAL) eGFR (08/28/2024 6:06 AM PEANUT SHELLER) eGFR 12(L) >=60 mL/min/1. 73 m2 Comment: [...] last reviewed 2021. Blood 08/28/2024 6:06 AM PEANUT SHELLER 08/28/2024 6:29 AM PEANUT SHELLER us Anthony Gorman MD LAB BLOOD ORDERABLES Fi nal Result [facility] Department [place] [address] * Differential, auto (08/28/2024 6:06 AM PEANUT SHELLER) Neutrophil abs 2.2 1.5 - 6.5 K/cumm Imm gran abs 0.0 0.0 - 0.1 K/cumm [facility] Lymphocyte abs 0.8 0.8 - 3.3 K/cumm [facility] Monocyte abs 0.7 0.2 - 0.8 K/cumm [facility] Eosinophil abs 0.0 0.0 - 0.5 K/cumm [facility] Basophil abs 0.0 0.0 - 0.1 K/cumm [facility] Neutrophil pct 58.7 % [facility] Comment: Interpretive Data Percent cell count reference ranges are not reported, since discordance with absolute values may lead to misinterpretation of CBC data. Current Interpretive Data was last revised on 2017. Imm gran pct 0.3 % [facility] Comment: Interpretive Data Percent cell count reference ranges are not reported, since discordance with absolute values may lead to misinterpretation of CBC data. Current Interpretive Data was last revised on 2017. Lymphocyte pct 21.3 % [facility] Comment: Interpretive Data Percent cell count reference ranges are not reported, since discordance with absolute values may lead to misinterpretation of CBC data. Current Interpretive Data was last revised on 2017. Monocyte pct 18.4 % [facility] Comment: Interpretive Data Percent cell count reference ranges are not reported, since discordance with absolute values may lead to misinterpretation of CBC data. Current Interpretive Data was last revised on 2017. Eosinophil pct 0.8 % [facility] Comment: Interpretive Data Percent cell count reference ranges are not reported, since discordance with absolute values may lead to misinterpretation of CBC data. Current Interpretive Data was last revised on 2017. Basophil pct 0.5 % [facility] Comment: Interpretive Data Percent cell count reference ranges are not reported, since discordance with absolute values may lead to misinterpretation of CBC data. Current Interpretive Data was last revised on 2017. Blood 08/28/2024 6:06 AM PEANUT SHELLER 08/28/2024 6:29 AM PEANUT SHELLER Anthony Gorman MD LAB BLOOD ORDERABLES Fi nal Result Performing Organization Address City/[facility] Co de Phone Number [facility] Department [place] [place] [address] * (ABNORMAL) CBC with auto differential (08/28/2024 6:06 AM PEANUT SHELLER) WBC 3.8 3.8 - 9.9 K/cumm Hgb 9.9(L) 11.9 - 15.5 g/dL [facility] Hct 32.6(L) 35.6 - 45.5 % [facility] Plt 105(L) 150 - 400 K/cumm [facility] MPV 11.8 9.1 - 12.3 fL [facility] RBC 3.17(L) 3.90 - 5.20 M/cumm [facility] MCV 102.8(H) 81.3 - 96.4 fL [facility] MCH 31.2 27.1 - 33.3 pg [facility] MCHC 30.4(L) 32.3 - 35.7 g/dL [facility] RDW CV 15.5(H) 11.1 - 14.9 % [facility] RDW SD 58.4(H) 35.7 - 48.1 fL [facility] NRBC abs 0.00 0.00 - 0.01 K/cumm [facility] Blood 08/28/2024 6:06 AM PEANUT SHELLER 08/28/2024 6:29 AM PEANUT SHELLER Anthony Gorman MD LAB BLOOD ORDERABLES Fi nal Result Performing Organization Address City/[facility]/ZIP Co de Phone Number [facility] [place] [employer] [place] [address] * Lipid panel (08/28/2024 6:06 AM PEANUT SHELLER) Cholesterol 114 30 - 199 mg/dL Comment: [...] revised on 2018. Triglycerides 77 <=149 mg/dL [facility] Comment: Interpretive Data Ages < [...] on 2018. HDL 66 >=40 mg/dL [facility] Comment: Interpretive Data Ages < [...] 2018. LDL, calculated 32 <=129 mg/dL [facility] Comment: Interpretive Data Ages < [...] revised on 2024. Non-HDL Cholesterol 48 mg/dL [facility] Comment: Interpretive Data Ages < [...] last revised on 2018. Chol/HDL ratio 2 [facility] Blood 08/28/2024 6:06 AM PEANUT SHELLER 08/28/2024 6:29 AM PEANUT SHELLER us Anthony Gorman MD LAB BLOOD ORDERABLES Fi nal Result [facility] Department [place] [address] * (ABNORMAL) Basic metabolic panel (08/28/2024 6:06 AM PEANUT SHELLER) Sodium 138 135 - 145 mmol/L Potassium, pl 4.4 3.3 - 4.9 mmol/L [facility] Chloride 94(L) 97 - 110 mmol/L [facility] CO2 37(H) 22 - 32 mmol/L [facility] Anion gap 7 2 - 15 mmol/L [facility] BUN 26(H) 6 - 25 mg/dL [facility] Creatinine 3.76(H) 0.60 - 1.10 mg/dL [facility] Glucose 139 70 - 199 mg/dL [facility] Comment: Interpretive Data Fasting [...] 2022. Calcium 10.7(H) 8.5 - 10.3 mg/dL [facility] Blood 08/28/2024 6:06 AM PEANUT SHELLER 08/28/2024 6:29 AM PEANUT SHELLER Anthony Gorman MD LAB BLOOD ORDERABLES Fi nal Result Performing Organization Address City/[facility]/ZIP Co de Phone Number [facility] Department [place] [employer] [place] [address] * Hepatitis C antibody (08/19/2020 12:07 PM PEANUT SHELLER) Hep C Ab Nonreactive Nonreactive [facility] Comment:Antibodies to HCV no t detected. Does NOT exclude the possibility of recent exposure to HCV. Blood specimen (specimen) 08/19/2020 12:07 PM PEANUT SHELLER 08/19/2020 12:15 PM PEANUT SHELLER Humza Trevizo MD LAB MICROB IOLOGY - GENERAL ORDERABLES Edited Result - Final Performing Organization Address City/[facility]/ZIP Co de Phone Number [facility] Department [place] [address] * (ABNORMAL) Hemoglobin A1c (09/04/2019 12:14 AM PEANUT SHELLER) Hgb A1C 8.2(H) 4.0 - 5.6 % [facility] Estimated Average Glucose 189 mg/dL [facility] Comment: The ADA recommends reporting an estimated Average Glucose (eAG) with all Hemoglobin A1c results using the equation derived from a study of 507 normal and diabetic adults. Minority populations were underrepresented and children were not included. (Diabetes Care 31:0283-6012, 2008). The eAG is not equivalent to a fasting glucose. Blood specimen (specimen) 09/04/2019 12:14 AM PEANUT SHELLER 09/04/2019 12:58 AM PEANUT SHELLER us Brandin Pena MD LAB BLOOD ORDERABLES Final Result [facility] Department [place] [address] from Last 3 Months or Most Recently Relevant to Health Maintenance Insurance [facility] MEDICARE ADVANTAGE IDMO MEDICARE RESEARCH [facility] MEDICARE ADVANTAGE IDPA [facility] MEDIC[facility] ADVANTAGE Advance Directives For more information, please contact: [phone] * Full Code (Latest Code Status on File) Date Activated Date Inactivated Comments 08/28/2024 6:35 AM 08/29/2024 9:01 PM * Full Code Date Activated Date Inactivated Comments 09/03/2019 11:07 PM 09/04/2019 6:57 PM * Full Code Date Activated Date Inactivated Comments 07/23/2018 10:39 PM 07/24/2018 7:45 PM Care Teams Neon Installer Relationship Specialty Start Date End Date David Coppola MD PCP - General Family Medicine 10/29/17 Jacob Suarez MD Referring Physician Nephrology 12/20/18 Ros Seay MD Deicer Kit Assembler Cardiology 03/05/19 Abdifatah Villa MD [address] [facility] [address] [place] [id number] Consulting Physician Cardiology 09/01/20 Issa Clements MD [address] [facility] [address] [place] [address] Referring Physician General Surgery 09/01/20
--- OUTSIDE RECORDS SUMMARY | 2024-11-05 14:51 | XMS_ITS | Clinical Summary ---
Author Organization [facility] Address [address] [place] [address] Care Team Providers Care Wrapper Opener Name Role Phone David Coppola MD Primary Care Provider [phone]- [phone] David Coppola MD Unavailable [phone] David Coppola MD Unavailable [phone] Virginie Corea RN Unavailable [phone] Source Comments [facility],non-owned Affiliates and Associated Physician Practices is amultiple site organization consisting of ambulatory clinics and hospital sitesin [place], [place], [place] and [place]. This disclosure is being madepursuant to the Care Everywhere program and may not contain all information available regarding this patient. Last updated 18.[facility] Allergies Active Allergy Reactions Criticality Noted Date Comments Sulfamethoxazole W-Trimethoprim Anaphylaxis High 07/2020 Cephalosporins Anaphylaxis High 12/03/2019 Gabapentin Psychiatric High 08/09/2020 Hallucinations Medications * Be aware that medications may not be up to date on this document. Alwaysverify current medications with the patient. B complex-vit C-folic acid (RENAPHRO,NEPH ROCAPS) 1 MG capsule Take 1 (one) capsule by mouth once daily Active SITagliptin (JANUVIA) 100 MG tablet Take 1 (one) tablet by mouth once daily Active liraglutide (VICTOZA) 18 MG/3ML pen Inject 1.2 mg subcutaneously every evening Sliding scale Active vitamin D, ergocalciferol , (DRISDOL) 1.25 MG (18953 UT) capsule Take 1 (one) capsule by mouth every 7 days 9 Active sevelamer carbonate (RENVELA) 800 MG TAKE 3 TABLETS BY MOUTH THREE TIMES DAILY WITH MEALS 0 Active acetaminophen (TYLENOL) 500 MG capsule Take 2 (two) capsules by mouth Active atorvastatin (LIPITOR) 20 MG tablet 1 Active clotrimazole (LOTRIMIN AF) 1 % cream Active lidocaine-pril ocaine (EMLA) 2.5-2.5 % cream 1 Active loperamide (IMODIUM) 2 MG capsule 1 Active calcium carbonate (TUMS) 500 MG chew tablet Take 2 (two) tablets by mouth at bedtime Active ONETOUCH ULTRA test strip TEST 6 TIMES DAILY 2 Active NOVOTWIST PEN NEEDLE 32G X 5 MM MISC as directed 2 Active traZODone (DESYREL) 50 MG tablet Take 1 (one) tablet by mouth at bedtime Active famotidine (Pepcid) 40 MG tablet Take 1 (one) tablet by mouth once daily 2 Active denosumab (Prolia) 60 MG/ML SC injection Every 6 mos 2 Active carvedilol (Coreg) 6.25 MG tablet Take 3.12 mg by mouth 2 times daily with morning and evening meal 3 Active Coenzyme Q10 10 MG Active chlorhexidine (Peridex) 0.12 % solution Active vitamin B-12 (Cyanocobalami n) 500 MCG tablet Take 1 (one) tablet by mouth Active clotrimazole (LOTRIMIN AF) 1 % lotion APPLY TO THE AFFECTED AND SURROUNDING AREAS OF SKIN BY TOPICAL ROUTE 2 TIMES PER DAY IN THE MORNING AND EVENING Active dicyclomine (Bentyl) 10 MG capsule 4 Active hylan (Synvisc One) 48 MG/6ML prefilled syringe ADMINISTERED IN DOCTORS OFFICE Active pantoprazole EC (Protonix) 40 MG tablet Take 1 (one) tablet by mouth every 12 hours 4 Active biotin 2.5 MG tablets Take by mouth once daily 10,000 mcg-1 tablet by mouth daily Active liraglutide (Victoza) 18 MG/3ML pen Inject 1.2 mg subcutaneously once daily Active Active Problems Problem Noted Date Diagnosed Date Encounter regarding vascular access for dialysis for end-stage renal disease 09/29/2022 ESRD (end stage renal disease) 04/02/2018 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 Pre-transplant evaluation for kidney transplant 12/10/2017 Overview (04/15/2018): Images from the original note were not included. Listing date: Not yet listed Referring Natural Resources Faculty Member: Dr. Suarez Dialysis Type and Start Date: HD M,W,F with start date of 02/04/2015 Blood Type: O + BMI: Short H/P summary: 72 y.o. F with DM2 (dx about 2004). She checks her BG once in the am and once in the pm. Pt currently takes actos and januvia. Her numbers range 90-100 and her current A1c is 6.1%. Pt voids 3 times daily and about 1/2 cup each time. Other PMX: HTN (dx about 1994), pt states she does not have high cholesterol but is taking lovastatin prophylactically, arthritis in her R knee, problems sleeping (has taken tofranil for pst 13 years), A-fib (on coumadin), Surgical: Tonsillectomy, broken hand as a child, LUE fistula, total knee replacement Social: Pt is and lives with her Estela. She speaks fluent Arabic. She has 3 children who live in [place] and [facility]. Her support system is her and his nephew if needed. She denies ETOH and illicit drug use. She does not work and is not on disability. She uses a cane to help her around. She states after her 3rd day of dialysis that her walking is much better and just uses the cane for support. She does go to the gym weekly. Pt is interested in kidney and has no LDs. Transplant surgery appt: 04/16/18 Nephrology appt: 04/16/18 Consults: Cardiology: 04/16/18 PSC Notes: Not yet presented Evaluation Testing Date and Results: Labs: 03/28/18 PTH: 4075.0 (will need to repeat) A1c: 5.7 Glucose: 207 GFR: 8 Serologies: +HepCAb, all others negative (will recommend Hep B) CMV Igg: Positive (07/20/15) EBV Igg: Positive (07/20/15) Albumin: 3.9 Tox Screen: All negative PRA: still pending Urine labs still need to be drawn Triglycerides: 174 (H) EK03/28/18 Component Results Component Value Ref Range & Units Status Ventricular Rate BPM 96 BPM Final Atrial Rate 250 BPM Final QRS Duration ms 92 ms Final Q-T Interval ms 366 ms Final QTC Calculation (Bezet) ms 462 ms Final Calculated R Mobile degrees 82 degrees Final Calculated T axis degrees 53 degrees Final EKG Interp Final ATRIAL FIBRILLATION NONSPECIFIC ST ABNORMALITY , PROBABLY DIGITALIS EFFECT ABNORMAL ECG NO PREVIOUS ECGS AVAILABLE Confirmed by Fritz GANT, MIKE ([id number]), publications editor Joseph Ingram ([id number]) on 04/04/2018 1:32:49 PM Echo: 03/28/18 CONCLUSION: There is moderate concentric left ventricular hypertrophy. The left ventricular ejection fraction is estimated at 65 %. There are no regional wall motion abnormalities present. Estimated right ventricular systolic pressure is 39 mmHg. Severe biatrial enlargement Mild dilated proximal ascending aorta. DSE: n/a will need [facility] Cardiac Cath: Will need d/t length of time DM2 CXR: 03/28/18 Final STUDY TEXT EXAMINATION: XR CHEST 2VW HISTORY: 72-year-old woman presenting for pre-renal transplant evaluation. FINDINGS/IMPRESSION: Comparison is made with a study from 07/20/2015. There is no focal consolidation, pleural effusion, or pneumothorax. The cardiac silhouette is enlarged. Aorta remains atherosclerotic and tortuous. The visible bony thorax is intact. CT a/p non-contrast: 03/28/18 Final STUDY TEXT EXAMINATION: Computed tomography (CT) of the abdomen and pelvis without contrast HISTORY: End-stage renal disease. Pretransplant evaluation for kidney transplant. TECHNIQUE: CT of the abdomen and pelvis was performed without contrast according to standard protocol. COMPARISON: CT of the abdomen and pelvis dated July 20, 2015. FINDINGS: Evaluation of visceral and vascular structures is degraded due to lack of intravenous contrast administration. The visible lung bases are clear. The heart is enlarged without pericardial effusion. Other than an unchanged calcified granuloma in hepatic segment in hepatic segment 3, the liver appears normal. The gallbladder is normal without evidence of wall thickening, pericholecystic fluid, or gallstones. The intrahepatic and extrahepatic bile ducts are nondilated. The spleen, pancreas, and adrenal glands appear normal. Multiple subcentimeter low attenuating lesions in both kidneys are too small to characterize but likely represent cysts. The kidneys are atrophic. No renal, ureteral, or bladder calculi are visible. There is no evidence of hydronephrosis or hydroureter. The distal esophagus and stomach appear normal. A moderate amount of impacted stool is seen in the ascending and transverse colon. The small bowel and large bowel are normal in caliber without evidence of wall thickening or obstruction. The appendix appears normal without appendicolith or surrounding inflammatory changes. No free air or free fluid is identified within the abdomen. There is no abdominal lymphadenopathy. The aorta is normal in course and caliber. The coronary arteries and aorta are atherosclerotic. There is mild atherosclerotic calcification of the external iliac arteries bilaterally. The urinary bladder is empty. The uterus is present. No free fluid is seen within the pelvis. There is no pelvic lymphadenopathy. Bone windows demonstrate no suspicious lytic or blastic lesions. The visible osseous structures are intact. Mild multilevel degenerative changes are noted in the spine. IMPRESSION: 1. Mild atherosclerotic calcification of the external iliac arteries bilaterally. 2. No acute process in the abdomen or pelvis. 3. Cardiomegaly Peripheral angiogram: Completed at OSH on 03/20/18 Cardiac Catheterization03/20/2018 [facility] Result Narrative PERIPHERAL ANGIOGRAM AND INTERVENTION REPORT DATE OF PROCEDURE: 03/20/18 INDICATION FOR PROCEDURE: Left great toe ulcer, PAD BRIEF CLINICAL HISTORY: Shasta Hooker is a 72 y.o. year old female hypertension, atrial fibrillation (rate controlled and anticoagulated), ESRD on hemodialysis, PAD. Patient was referred for peripheral angiogram in the setting of left great toe ulcer. Benefits and risks of the procedure were discussed with the patient in depth, and informed consent was taken prior to the procedure. Risks of the procedure include but are not limited to vascular complications like groin hematoma, retroperitoneal bleed, vessel perforation; periprocedural ID, stroke, contrast induced nephropathy, and even . After discussing all the benefits, risks and alternatives, patient was willing to proceed with the procedure. PROCEDURES PERFORMED: 1. Distal abdominal aortogram with bilateral iliac runoff 2. Selective left common iliac angiogram with distal runoff 3. Selective right common femoral angiogram with distal runoff 4. Selective left common femoral angiogram with distal runoff 5. Selective left superficial femoral angiogram with distal runoff 6. Left lower extremity peripheral vascular intervention- orbital atherectomy (CSI diamondback device) of totally occluded, calcified left anterior tibial artery followed by balloon angioplasty. 7. Deployment of Angio-Seal hemostatic device at right common femoral artery access site 8. Moderate Sedation (CPT 89051) MODERATE SEDATION: Midazolam 2 mg , Fentanyl 50 mcg, start time 1157 stop time 1318, total direct [id number] monitoring of conscious sedation 81 minutes (CPT 59194) TRAINED OBSERVER: Mena Scruggs RN was trained office over for moderate sedation. ACCESS SITE: Right common femoral artery PROCEDURE: After obtaining informed consent, patient was brought to the lab tech and prepped and draped in the usual sterile manner. After local anesthesia with lidocaine, right common femoral artery access was taken with micropuncture needle followed by insertion of a 5 Togolese sheath over a 0.035 inch wire. Selective right common femoral angiogram with distal runoff was performed through the 5 Togolese sheath. After this, a 5 Togolese IM catheter was advanced in the distal abdominal aorta, distal abdominal aortogram with bilateral iliac runoff was performed. The same catheter was pointed towards the left common iliac artery, selective left common iliac angiogram with distal runoff was performed. During intervention, selective left common femoral angiogram and superficial femoral angiogram was performed using the long 6 Togolese sheath. The angiographic findings and details of intervention are given below. FINDINGS: PELVIC ANGIOGRAM: Distal abnormal artery is a medium-size vessel, calcified, no focal stenosis aneurysm is seen. Bilateral iliac arteries are calcified but patent. There is minimal narrowing of at the ostia of bilateral common iliac arteries. Bilateral external iliac arteries and internal iliac arteries are patent. RIGHT LOWER EXTREMITY: SFA and profunda femoris arteries are patent. Popliteal artery is patent, metal artifact is seen. Diffuse calcific disease is seen in the infrapopliteal vessels, although not well visualized. Peroneal artery appears to be patent, anterior and posterior tibial arteries have severe disease. LEFT LOWER EXTREMITY: SFA, profunda femoris and popliteal arteries are patent without significant focal stenosis. There is severe infrapopliteal disease with 100% occlusion of anterior and posterior tibial arteries. The vessels are diffusely calcific. Peroneal arteries patent in the proximal segment with diffuse disease in the distal segment. The anterior and posterior tibial arteries reconstitute at the foot level through the collaterals, however, are very small caliber vessels. INTERVENTION REPORT: Based on patient's clinical presentation with left great toe ulcer and angiographic findings showing occluded calcific left anterior tibial artery, we proceeded with intervention on the same vessel. The 5 Togolese sheath was exchanged with a long 90 cm sheath over 035 glide wire. The tip of the long sheath was position in the proximal popliteal artery. Patient received heparin for procedural anticoagulation, ACT was monitored throughout the procedure. Patient also received aspirin loading dose of clopidogrel 600 mg in the lab tech. The totally occluded, calcified left anterior tibial artery was successfully crossed using 0.014 Fielder wire with a 014 quick cross supporting catheter. After this, the Fielder wire was exchanged with a whisper wire in preparation for the orbital atherectomy. Next, CSI diamondback micro atherectomy catheter was advanced and orbital atherectomy was performed in the entire diseased and calcified segment of anterior tibial artery up to just proximal to the ankle. Multiple runs were performed. Intra-arterial nitroglycerin was given on multiple occasions during the intervention. After this, the atherectomy catheter was taken out, and Ev 3 NanoCross elite 2.0-1.5 mm 210 mm length balloon was advanced, the Viper wire was taken out and it was exchanged with a Fielder wire. Next, balloon angioplasty was performed in the entire left anterior tibial artery at nominal pressures. The balloon was taken out and angiogram after removal otherwise showed reasonable angiographic results in the treated segment of the anterior tibial artery, although, the distal most segment of the vessel is very small caliber vessel. The long sheath was taken out over a 035 wire, and hemostasis was achieved with Angio-Seal hemostatic device. Patient tolerated procedure well without any immediate procedure related complications. CONCLUSIONS: 1. Severe bilateral lower extremity PAD involving infrapopliteal vessels: 100% occlusion of bilateral anterior and posterior tibial arteries. 2. Left lower extremity peripheral vascular intervention- orbital atherectomy (CSI diamondback device) of severely diseased and diffusely calcific left anterior tibial artery followed by balloon angioplasty. PLAN/RECOMMENDATIONS: Dual antiplatelet therapy with aspirin and clopidogrel for at least 1 month, then aspirin or clopidogrel indefinitely as tolerated. Need for intervention the right lower extremity will be based on patient's clinical course. Continue left great toe local wound care. Pano: received dental clearance PPD: Colonoscopy: Completed at [facility] 12/02/2015 Mammo: Pap: Dental: SW: 03/28/18 Clinical Social Work Impression: It is the impression of this social sciences lecturer that Shasta Obando has several positive factors for Kidney transplant candidacy from a psychosocial perspective. Pt has a good understanding of her disease and motivation for kidney transplant. Pt appears to have adequate insurance and financial situation (children provide assistance as needed) for post transplant needs. Pt has identified adequate support system and appropriate discharge plan. No concerns regarding substance abuse identified. Plan: size worker to provide supportive services as needed. No f/u indicated at this time.Patient appears to be a reasonable candidate for transplant from a psychosocial perspective. Post transplant arrangement forms are needed prior to being listed. Psychiatric Consult Recommended: No Transplant Recreation Clerk: Nicole Tomas LMSW RD: 03/28/18 BMI= 28.51, overweight - Pt is considered to be a good candidate for a Kidney Transplant from a Nutrition standpoint. Recommendations/Interventions: Pt instructed to continue to work with Renal RD at HD on diet and to be compliant. Lindsay Gardner Encounter for other preprocedural examination Overview (10/08/2017): Listing date: Not yet listed Referring Natural Resources Faculty Member: Dr. Suarez Dialysis Type and Start Date: HD M,W,F with start date of 02/04/2015 Blood Type: O + BMI: Short H/P summary: Obtained: 70 y.o. F with DM2 (dx about 10 years ago). Pt is currently on HD and goes M/W/F. She checks her BG once in the am and once in the pm. Pt currently takes actos and januvia. Her numbers range 90-100 and her current A1c is 6.1%. Pt voids 3 times daily and about 1/2 cup each time. Other PMX: HTN (dx about 20 years ago and is currently taking norvasc and coreg), pt states she does not have high cholesterol but is taking lovastatin prophylactically, arthritis in her R knee, problems sleeping (has taken tofranil for pst 11 years) Surgical: Tonsillectomy, broken hand as a child, last pap and mammo completed in 201, R sub permacath while waiting for her LUE fistula to mature Social: Pt is and lives with her Estela. She speaks fluent Arabic. She has 3 chilren who live in [place] and [facility]. Her support system is her and his nephew if needed. She denies ETOH and illicit drug use. She does not work and is not on disability. She uses a cane to help her around. She states after her 3rd day of dialysis that her walking is much better and just uses the cane for support. She does go to the gym weekly. Pt is interested in kidney and has no LDs. Transplant surgery appt: Consults: cardiology consult with [facility] PSC Notes: Not yet presented Evaluation Testing Date and Results: Labs: PTH: A1c: Glucose: PSA: GFR: Serologies: CMV Igg: EBV Igg: Albumin: Tox Screen: PRA: Echo: DSE: Cardiac Cath: CXR: Pano: US: PPD: Negative at on 05/08/2016 Colonoscopy: Completed at [facility] 12/02/2015 Mammo: Pap: Dental: SW: RD: Abnormal finding on imaging 06/15/2015 Overview (06/15/2015): Filling defect on venography of central veins. Need to rule out aortic arch aneurysm. Complication of arteriovenous dialysis fistula PVD (peripheral vascular disease) Immunizations Immunization Administration Dates Next Due Covid Moderna primary monova lent 12+ yr 0.5mL 11/04/2021,10/15/2020,09/17/2020 Family History Medical History Relation Name Comments ID Brother 3 Heart Disease Father Hypertension Father ID Father Hypertension Mother Relation Name Status Comments Brother 1 Alive Brother 2 Brother 3 Father Mother Sister Alive Social History Tobacco Use Types Packs/Day Years Used Date Smoking Tobacco: Never Smokeless Tobacco: Never Tobacco Cessation:Counseling Given: No Alcohol Use Standard Drinks/Week Comments No 0 (1 standard drink = 0.6 oz pur e alcohol) Comments No Sex and Gender Information Value Date Recorded Sex Assigned at Not on file Legal Sex Female 5:40 PM SHERIFFS Gender Identity Not on file Sexual Orientation Not on file Last Filed Vital Signs Vital Sign Reading Time Taken Comments Blood Pressure 139/65 07/15/2024 11:07 AM SHERIFFS Pulse 67 07/15/2024 11:07 AM [facility]ERIFFS Temperature 36.8 C (98.2 F) 07/15/2024 10:34 AM SHERIFFS Respiratory Rate 25 07/15/2024 11:07 AM SHERIFFS Oxygen Saturation 92% 07/15/2024 11:07 AM SHERIFFS Inhaled Oxygen Concentration - - Weight 50.8 kg (112 lb) 07/15/2024 10:34 AM SHERIFFS Height 142.2 cm (4' 8 ) 07/15/2024 10:34 AM SHERIFFS Body Mass Index 25.11 07/15/2024 10:34 AM SHERIFFS Plan of Treatment Upcoming Encounters Date Type Department Care Team (Late st Contact Info) Description 11/11/2024 11:00 AM CDT Appointment [facility] [address] [place] [address] [place] [address] [address] [place] [address] [place] [address] [address] [place] [address] Cristo Fontenot MD [address] [place], [place] [id number] Health Maintenance Due Date Last Done Comments BONE DENSITY TESTING 1945 DTAP/TDAP/TD VACCINES (1 - Tdap) 1965 PNEUMOCOCCAL VACCINE 50+ (1 of 2 - PCV) 1965 HEPATITIS B VACCINE (1 of 3 - Risk Dialysis 4-dose series) 1966 ZOSTER VACCINE (1 of 2) 1996 Respiratory Syncytial Virus (RSV) Vaccine Pt: or over 60 yrs (1 - 1-dose 75+ series) 2021 COVID-19 VACCINE ( - season) 2024 11/04/2021, 10/15/2020, 09/17/2020 DEPRESSION SCREENING 07/09/2024 MEDICARE AWV CALENDAR YEAR 2024 INFLUENZA VACCINE (Season Ended) 2025 03/22/2018, 04/08/2017, 03/23/2015, Additional history exists HEPATITIS C SCREENING Completed 03/28/2018, 016 HIB VACCINE Aged Out No longer eligi ble based on patient's age to complete this topic HPV VACCINE Aged Out No longer eligi ble based on patient's age to complete this topic MENINGOCOCCAL (Group B) VACCINE SHARED DECISION-MAKING Aged Out No longer eligible based on patient's age to complete this topic MENINGOCOCCAL GROUPS A/C/Y/W VACCINE Aged Out No longer eligible based on patient's age to complete this topic Medical Devices Implanted Type Area Tobacco Shaker Device Identifier Shelf Expiration Date Model / Serial / Lot Duraflow 2 Hemodialysis Catheter Implanted:Qty: 1 on 02/22/2015 by David Buitrago MD at [facility] Right: Chest 06/07/2017 [id number] / / [id number] [place] Acuseal Vascular Graft Implanted:Qty: 1 on 04/02/2018 by David Buitrago MD at [facility] Left: Arm 10/29/2020 [id number] / / [id number] Procedures Procedure Name Priority Date/Time Associated Diagnosis Comments HEPATITIS C ANTIBODY Routine 03/28/2018 1:53 PM CDT Abnormal finding on imaging Encounter for other preprocedural examination Pre-transplant evaluation for kidney transplant PVD (peripheral vascular disease) from Last 3 Months or Most Recently Relevant to Health Maintenance Results * HEPATITIS C ANTIBODY (03/28/2018 1:53 PM CDT) Hepatitis C Antibody Non-react glen Non-reac tive 03/28/2018 2:50 PM CDT [facility] Comment: Hepatitis C Antibody screen indicates no serologic evidence of past or current infection with Hepatitis C Virus. Patients with unexplained liver disease who are immunocompromised or suspected of having acute Hepatitis C infection may benefit from Nucleic Acid Test (LUIS) for Hepatitis C Viral RNA to confirm Hepatitis C status. 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
--- OUTSIDE RECORDS SUMMARY | 2024-11-05 14:51 | XMS_ITS | Clinical Summary ---
Author Organization [facility] Address [address] [place] [address] Phone Care Team Providers Care Medical Doctor Md Name Role Phone David Coppola MD Primary Care Provider [phone] Allergies Active Allergy Reactions Criticality Noted Date Comments Cephalosporins Anaphylaxis High 10/16/2019 Pt does not know. Gabapentin Dizziness,Hallucinat i on,Anaphylaxis,Other (See Comments) High 05/24/2020 Hallucinations Sulfamethoxazole-Trimeth oprim Anaphylaxis High 08/09/2020 Medications acetaminophen (TYLENOL) 325 mg tablet Take 650 mg by mouth. Active acetaminophen-co deine (TYLENOL #3) 300-30 mg tablet Take 30 mg by mouth. 11/10/19 20 Active aspirin (ECOTRIN EC) 81 mg Tablet, Delayed Release (E.C.) Take 81 mg by mouth. 06/17/20 19 Active vitamin B complex-vitamin C-folic acid (NEPHROCAP) 1 mg Capsule Take 1 Capsule by mouth. 09/04/19 20 Active OneTouch Ultra Blue Test Strip Strip USE 1 STRIP TO CHECK GLUCOSE SIX TIMES DAILY DIRECTED 03/11/20 20 Active cinacalcet (SENSIPAR) 30 mg Tablet Take by mouth. 12/14/19 18 Active SantyL 250 unit/gram Ointment APPLY TO RIGHT FOOT WOUND DAILY WITH BULKY DRY DRESSING 05/12/20 20 Active ergocalciferol (VITAMIN D2) 50,000 unit capsule TAKE 1 CAPSULE BY MOUTH ONCE A WEEK 05/11/20 20 Active ferrous sulfate 325 mg (65 mg iron) tablet Take 1 Tablet by mouth. 12/23/19 20 Active insulin degludec (TRESIBA) 100 unit/mL pen syringe INJECT 10 UNITS SUBCUTANEOUSLY ONCE DAILY 10/06/19 20 Active insulin lispro (HumaLOG) 100 unit/mL vial Inject by subcutaneous injection. Active ipratropium-albu teroL (DUONEB) 0.5 mg-3 mg(2.5 mg base)/3 mL Solution for Nebulization Take 3 mL by inhalation. Active lidocaine-priloc leo (EMLA) 2.5-2.5 % Cream APPLY 30 MINUTES PRIOR TO DIALYSIS 01/11/20 19 Active lisinopriL (PRINIVIL) 20 mg tablet Take by mouth. 08/23/19 18 Active morphine (MS CONTIN) 15 mg Controlled Release tablet Take 15 mg by mouth every 12 hours. 11/21/19 20 Active mupirocin (BACTROBAN) 2 % Ointment APPLY A SMALL AMOUNT TO THE TIP OF LEFT THIRD TOE DAILY 01/02/20 20 Active pantoprazole (PROTONIX) 40 mg Tablet, Delayed Release (E.C.) TAKE 1 TABLET BY MOUTH TWICE DAILY 05/04/20 20 Active NovoTwist 32 gauge x 1/5 Needle 05/17/20 20 Active polyethylene glycol 3350 (MIRALAX) 17 gram/dose Powder Take 17 Grams by mouth. Active sevelamer carbonate (RENVELA) 800 mg Tablet TAKE 3 TABLETS BY MOUTH THREE TIMES DAILY WITH MEALS 03/22/20 20 Active SITagliptin (JANUVIA) 100 mg Tablet Take 100 mg by mouth. Active biotin 1 mg Capsule Take 1 Tablet by mouth. Active carvediloL (COREG) 12.5 mg tablet Take 12.5 mg by mouth. 09/04/19 20 Active cyanocobalamin (VITAMIN B-12) 500 mcg tablet Take 500 mcg by mouth. Active liraglutide (VICTOZA) 0.6 mg/0.1 mL (18 mg/3 mL) Inject 1.8 mg by subcutaneous injection. Active losartan (COZAAR) 25 mg tablet Take 50 mg by mouth. Active Active Problems Problem Noted Date Diagnosed Date Anemia of chronic renal failure, stage 5 020 Family History Relation Name Status Comments Brother 1 Alive Brother 2 Brother 3 Father Mother Sister Alive Social History Tobacco Use Types Packs/Day Years Used Date Smoking Tobacco: Never Alcohol Use Standard Drinks/Week Comments Never 0 (1 standard drink = 0.6 oz pur e alcohol) Comments Unknown Sex and Gender Information Value Date Recorded Sex Assigned at Not on file Legal Sex Female 1:29 PM CDT Gender Identity Not on file Sexual Orientation Not on file Last Filed Vital Signs Vital Sign Reading Time Taken Comments Blood Pressure 71/53 09/01/2020 2:54 PM DATA MANAGEMENT 148 /36 Pulse 72 09/01/2020 2:54 PM DATA MANAGEMENT Temperature 36.4 C (97.6 F) 09/01/2020 2:54 PM DATA MANAGEMENT Respiratory Rate - - Oxygen Saturation 97% 09/01/2020 2:54 PM DATA MANAGEMENT Inhaled Oxygen Concentration - - Weight 56.6 kg (124 lb 11.2 oz) 09/01/2020 2:54 PM DATA MANAGEMENT Height 144.8 cm (4' 9 ) 09/01/2020 2:54 PM DATA MANAGEMENT Body Mass Index 26.98 09/01/2020 2:54 PM DATA MANAGEMENT Plan of Treatment Health Maintenance Due Date Last Done Comments DIABETES ANNUAL FOOT EXAM 1963 DIABETES ANNUAL RETINAL EXAM 1964 DIABETES MICROALBUMIN ANNUAL SCREEN 1964 LDL CHOLESTEROL ANNUAL 1964 DTAP/TDAP/TD VACCINES (1 - Tdap) 1965 ZOSTER VACCINE (1 of 2) 1996 OSTEOPOROSIS SCREENING 2011 DIABETES HBA1C Q 6 MONTHS 09/25/2018 03/28/2018 RSV VACCINE (60+ or ) (1 - 1-dose 75+ series) 2021 INFLUENZA VACCINE (#1) 2024 04/08/2017 PNEUMOCOCCAL VACCINE 50+ YEARS Completed 1 , 04/09/2014, 04/09/2014 Insurance [place]ICAID [place] [facility] [id number] Care Teams Medical Doctor Md Relationship Specialty Start Date End Date David Coppola MD PCP - General Family Practice 05/14/20
--- OUTSIDE RECORDS SUMMARY | 2024-11-05 14:51 | XMS_ITS | Encounter Summary ---
Author Organization [facility] Address [address] [place] [address] Phone Care Team Providers Care Brick Or Block Maker Name Role Phone David Coppola MD Primary Care Provider [phone] Jacob Suarez MD Unavailable Marnie Lara RN Unavailable [phone] Ros Seay MD Unavailable Johana Edmond RN Unavailable Abdifatah Villa MD Unavailable Issa Clements MD Unavailable [phone] Encounter Details Date Type Department Care Team (Late st Contact Info) Description 05/13/2018 Telephone [facility] Cardiology [address] [facility] Advanced Medicine 8th [place] [address] [place] [address] Cameron Haro MD [address] [place] [address] Social History Tobacco Use Types Packs/Day Years Used Date Smoking Tobacco: Never Smokeless Tobacco: Never Alcohol Use Standard Drinks/Week Comments No 0 (1 standard drink = 0.6 oz pur e alcohol) Comments No Sex and Gender Information Value Date Recorded Sex Assigned at Not on file Legal Sex Female 12:39 PM SPECIFICATION WRITER Gender Identity Not on file Sexual Orientation [...] Influenza, adult 09/04/2019 09/04/2019 09/11/2019 3:05 AM SPECIFICATION WRITER Abscess/Wound/Cellulitis 10/16/2019 10/16/2019 3:05 AM CDT documented as of this encounter Care Teams Brick Or Block Maker Relationship Specialty Start Date End Date David Coppola MD PCP - General Family Medicine 10/29/17 Jacob Suarez MD Referring Physician Nephrology 12/20/18 Marnie Lara RN Registered Nurse Blender Laborer 12/20/1809/03 Ros Seay MD Regulatory Analyst Cardiology 03/05/19 Johana Edmond, RN [address] [facility] [address] [place] [address] Blender Laborer 08/21/19 Abdifatah Villa MD [address] [facility] [address] [place] [address] Consulting Physician Cardiology 09/01/20 Issa Clements MD [address] [facility] [address] [place] [address] Referring Physician General Surgery 09/01/20 documented as of this encounter
--- OUTSIDE RECORDS SUMMARY | 2024-11-05 14:51 | XMS_ITS | Clinical Summary ---
Author Organization [facility] Address [address] [place] [address] Phone Care Team Providers Care Clinical Technologist Name Role Phone Unavailable Primary Care Provider Unavailabl e Allergies Active Allergy Reactions Criticality Noted Date Comments Cephalexin Unknown 10/27/2021 Gabapentin Unknown 10/27/2021 Sulfamethoxazole Unknown 10/27/2021 Medications acetaminophen (TYLENOL) 500 MG Tablet Take 500 mg by mouth every 4 hours as needed. Active atorvastatin (LIPITOR) 20 MG Tablet Take 20 mg by mouth daily. Active clotrimazole (LOTRIMIN) 1 % Cream Apply 3 times daily. Application Site: Apply twice daily as needed for arm Active Lidocaine-Prilo umair (EMLA EX) by Apply externally route. Active Vitamin D3 (Vitamin D3) 1000 UNIT Tablet Take by mouth. Activ e famotidine (PEPCID) 40 MG Tablet Take 40 mg by mouth daily. Active irbesartan (AVAPRO) 75 MG Tablet Take 75 mg by mouth nightly. Active Liraglutide (VICTOZA SC) by Subcutaneous route. Pen inject 1.8 Active Cyanocobalamin (VITAMIN B 12 PO) Take by mouth. Activ e SITagliptin (JANUVIA) 100 MG Tablet Take 100 mg by mouth daily. Active Denosumab (PROLIA SC) by Subcutaneous route. Every 6 months Active sevelamer (RENAGEL) 800 MG Tablet Take by mouth 3 times daily. Active traZODone (DESYREL) 50 MG Tablet Take 50 mg by mouth nightly. Active Calcium Carbonate Antacid (TUMS PO) Take by mouth. Activ e cinacalcet (SENSIPAR) 30 MG Tablet Take 30 mg by mouth. Active clopidogrel (Plavix) 75 MG Tablet Take 75 mg by mouth daily. Active Social History Tobacco Use Types Packs/Day Years Used Date Smoking Tobacco: Never Smokeless Tobacco: Never Comments No Sex and Gender Information Value Date Recorded Sex Assigned at Not on file Legal Sex Female 3:43 PM MANIFOLD OPERATOR Gender Identity Not on file Sexual Orientation Not on file Last Filed Vital Signs Vital Sign Reading Time Taken Comments Blood Pressure 112/50 10/27/2021 10:10 AM CDT Pulse 67 10/27/2021 10:10 AM CDT Temperature 36.6 C (97.8 F) 10/27/2021 10:10 AM CDT Respiratory Rate - - Oxygen Saturation - - Inhaled Oxygen Concentration - - Weight 53.4 kg (117 lb 12.8 oz) 022 10:10 AM CDT Height 147.3 cm (4' 10 ) 10/27/2021 10: 10 AM CDT Body Mass Index 24.62 10/27/2021 10:10 AM CDT Plan of Treatment Health Maintenance Due Date Last Done Comments DEXA Bone Density 1945 Hepatitis C Virus (HCV) Screening 1945 TdaP Immunization 1945 Zoster Immunization (1 of 2) 1996 Hepatitis B Immunization (2 of 3 - 19+ 3-dose series) 05/24/2018 04/26/2018 Respiratory Syncytial Virus (RSV) Immunization (Adult) (1 - 1-dose 75+ series) 2021 Influenza Immunization (#1) 03/09/202403/09, 03/22/2018, 04/08/2017, Additional history exists SARS-COV-2 Immunization ( season) 2024 11/04/2021, 05/27/2021, 10/15/2020, Additional history exists Pneumococcal Immunization (50+ years) Completed 05/08/2019, 04/09/2014 Meningococcal Immunization (ACWY) Aged Out No longer eligible based on patient's age to complete this topic Rotavirus Immunization Aged Out No lo nger eligible based on patient's age to complete this topic
--- OUTSIDE RECORDS SUMMARY | 2024-11-05 14:51 | XMS_ITS | Clinical Summary ---
Author Organization [facility] Address [facility] [place] [address] Care Team Providers Care Supervisor Feed Mill Name Role Phone David Coppola MD Primary Care Provider [phone] Encounters Date Type Department Care Team Description 09/04/2024 10:08 AM TOPOGRAPHY TECHNICIAN - 09/04/2024 11:59 PM TOPOGRAPHY TECHNICIAN Hospital Encounter [facility] [address] Alena Arredondo DO Discharge Disposition: Home or Self Care (Routine Discharge) 09/04/2024 Orders Only [facility] [address] Alena Arredondo DO from Last 3 Months Social History Tobacco Use Types Packs/Day Years Used Date Smoking Tobacco: Never Assessed Comments Unknown Sex and Gender Information Value Date Recorded Sex Assigned at Not on file Legal Sex Female 5:40 AM CDT Gender Identity Not on file Sexual Orientation Not on file Plan of Treatment Health Maintenance Due Date Last Done Comments Hepatitis C 1963 DTaP, Tdap and Td Vaccines (1 - Tdap) 1964 Annual Medicare Wellness Visit 2011 Dexa Scan (General) 2011 RSV Immunization or 60+ Years (1 - 1-dose 75+ series) 2021 Zoster Vaccines (2 of 2) 01/06/2022 11/11/2021 COVID-19 Vaccine ( season) 2024 05/05/2022, 11/04/2021, 05/27/2021, Additional history exists Pneumococcal Vaccine: 50+ Years Completed 11/11/2021, 05/08/2019, 04/09/2014 Meningococcal B Vaccine Aged Out No l onger eligible based on patient's age to complete this topic Meningococcal Vaccine Aged Out No irene prince eligible based on patient's age to complete this topic RSV Immunizations Under 20 Months Aged Out No longer eligible based on patient's age to complete this topic Procedures Procedure Name Priority Date/Time Associated Diagnosis Comments CBC W/DIFF AUTOMATED Routine 09/04/2024 9:21 AM TOPOGRAPHY TECHNICIAN Anemia, unspecified from Last 3 Months Results * (ABNORMAL) CBC W/DIFF AUTOMATED (09/04/2024 9:21 AM TOPOGRAPHY TECHNICIAN) WBC 5.62 4.5 - 11.0 x10'3/uL 09/04/2024 10:29 AM [facility] RBC 3.17(L) 4.20 - 5.40 x10'6/uL 09/04/2024 10:29 AM [facility] HGB 9.9(L) 12.0 - 16.0 G/DL 09/04/2024 10:29 AM [facility] HCT 33.0(L) 38.0 - 48.0 % 09/04/2024 10:29 AM [facility] MCV 104.1(H) 81.0 - 99.0 FL 09/04/2024 10:29 AM [facility] MCH 31.2(H) 27.0 - 31.0 PG 09/04/2024 10:29 AM [facility] MCHC 30.0(L) 32.0 - 36.0 G/DL 09/04/2024 10:29 AM [facility] RDW 15.1(H) 11.5 - 14.5 % 09/04/2024 10:29 AM [facility] PLT 142 130 - 400 x10'3/uL 09/04/2024 10:29 AM [facility] MPV 12.0 9.3 - 12.2 FL 09/04/2024 10:29 AM [facility] DIFFERENTIAL TYPE AUTOMATED DIFFERENTIAL 09/04/2024 10:29 AM [facility] NEUTROPHILS % 65.7 % 09/04/2024 10:29 AM [facility] LYMPHOCYTES % 18.0 % 09/04/2024 10:29 AM [facility] MONOCYTES % 14.1 % 09/04/2024 10:29 AM [facility] EOSINOPHILS 1.4 % 09/04/2024 10:29 AM [facility] BASOPHILS 0.4 % 09/04/2024 10:29 AM [facility] IMMATURE GRANS % 0.4 % 09/04/19 10:29 AM [facility] ABS. NEUTROPHILS 3.70 1.80 - 7.70 x10'3/uL 09/04/2024 10:29 AM [facility] ABS. LYMPHOCYTES 1.01 1.00 - 4.80 x10'3/uL 09/04/2024 10:29 AM [facility] ABS. MONOCYTES 0.79 0.24 - 0.86 x10'3/uL 09/04/2024 10:29 AM [facility] ABS. EOSINOPHILS 0.08 0.04 - 0.36 x10'3/uL 09/04/2024 10:29 AM [facility] ABS. BASOPHILS 0.02 0.01 - 0.08 x10'3/uL 09/04/2024 10:29 AM [facility] ABS. IMMATURE GRANULOCYTES 0.02 0.00 - 0.49 x10'3/uL 09/04/2024 10:29 AM TOPOGRAPHY TECHNICIAN [facility] 09/04/2024 9:21 AM TOPOGRAPHY TECHNICIAN Alena Gastelum Asherviktoriya DO LABORATORY Final Resu lt [facility] [address] [place] [address], [place] [phone] from Last 3 Months Insurance [facility] [place] [address] MEDICAID Care Teams Supervisor Feed Mill Relationship Specialty Start Date End Date David Coppola MD [facility] [facility] [place] [address] PCP - General FAMILY PRACTICE 06/13/22
--- OUTSIDE RECORDS SUMMARY | 2024-11-05 14:51 | XMS_ITS | Encounter Summary ---
Author Organization [facility] Address [address] [place] [address] Care Team Providers Care Clubhouse Manager Name Role Phone David Coppola MD Primary Care Provider + [phone] David Coppola MD Primary Care Provider + [phone] David Coppola MD Unavailable [phone] David Coppola MD Unavailable [phone] Virginie Corea RN Unavailable [phone] Encounter Details Date Type Department Care Team (Late Contact Info) Description 02/08/2015 [facility] Outpatient Visit EXTERNAL NON-[facility] DEPT David Buitrago MD [address] [place] [address] [address] [place] [id number] Social History Tobacco Use Types Packs/Day Years Used Date Smoking Tobacco: Never Alcohol Use Standard Drinks/Week Comments No 0 (1 standard drink = 0.6 oz pur e alcohol) Comments Unknown Sex and Gender Information Value Date Recorded Sex Assigned at Not on file Legal Sex Female 5:40 PM WAX ROOM SUPERVISOR Gender Identity Not on file Sexual Orientation Not on file documented as of this encounter Plan of Treatment Upcoming Encounters Date Type Department Care Team (Late Contact Info) Description 11/11/2024 11:00 AM CDT Appointment [facility] V[facility] [id number] [place] [address], [address] [place] [address] [place] [address] [facility] [address] [place] [address] [place] [address] [facility] [address] [place] [address] Cristo Fontenot MD [address] [place] [address] documented as of this encounter Visit Diagnoses Not on filedocumented in this encounter Care Teams Clubhouse Manager Relationship Specialty Start Date End Date David Coppola MD [address] [place] [phone] PCP - General Family Medicine 02/08/15 08/14/16 David Coppola MD [address] [place] [phone] PCP - General 08/15/16 David Coppola MD [address] [place] [phone] Family Medicine 02/08/15 David Coppola MD [address] [place] [phone] Family Medicine 08/15/16 Virginie Corea, RN Horticulture/Floriculture Teacher 02/23/15 documented as of this encounter
--- OUTSIDE RECORDS SUMMARY | 2024-11-05 14:51 | XMS_ITS | Data Portability ---
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 At her request under sterile conditions I injected the patient's left knee joint and the patient's left hip trochanteric bursa in the office with 4 cc 0.5% bupivacaine and 20 mg of Kenalog each. The patient tolerated the procedure well. I will see her back as needed we can do this again in 3 months if necessary she voiced understanding agrees above plan she will call for any further problems difficulties or questions. Not available 11/13/2023 14:40:19 01/17/2024 01/17/2024 the patient has moderately severe primary osteoarthritis left knee joint under sterile conditions as her request I injected the patient's left knee joint in the office today with Synvisc-One injection that she brings with her from the specialty pharmacy. She tolerated the procedure well. I will see her back as needed we can do this again in 6 months versus cortisone in between she voiced understanding agrees above plan she will call for any further problems difficulties or questions. Not available 01/17/2024 15:33:42 04/10/2024 04/10/2024 By history and exam the patient is noted to have a right 4th trigger finger. We talked about treatment options she has failed conservative measures on her own at home. She would like to proceed with a shot of cortisone and oral prednisone. We will get her set up for prescription for the oral prednisone. Today under sterile conditions I injected the patient is right 4th finger into the flexor tendon sheath at the A1 rigo site with 2 cc of 0.5% bupivacaine and 10 mg of Kenalog. The patient tolerated the procedure well. I have advised her to give it 4-6 weeks if her symptoms continue she will call we could always repeat a cortisone injection if necessary hopefully it will calm down with time. If not we could reinject it in 4-6 weeks. We did discuss also today possible surgical options if she fails further conservative measures we talked about the surgery in detail including the procedure itself risks benefits limitations and alternatives. She voiced understanding and agrees above plan she will call for any further problems difficulties or questions. Not available 04/10/2024 09:42:29 05/22/2024 05/22/2024 The patient has chronic low back pain with an exacerbation of her lumbar pain particularly in the left sacroiliac region. She has no radiculopathy. She also has severe primary osteoarthritis left knee joint. Due to osteoporosis and other medical issues she is not a good candidate for total knee arthroplasty. She would rather get by with conservative measures any way. She has done well with these previously. She would like to proceed with treatment for her left sacroiliac and left knee pain. Under sterile conditions at her request I injected the patient's left sacroiliac bursa and the patient's left knee joint in the office with 4 cc 0.5% bupivacaine and 20 mg of Kenalog each. The patient tolerated the procedures well. I will see her back as needed I have advised her we could do cortisone again in 3 months if necessary or we can do gel shots again in her left knee she will let us know when she needs further treatment. She voiced understanding and agreed with the above plan she will call for any further problems difficulties or questions. Not available 05/22/2024 10:15:05 09/25/2024 09/25/2024 The patient has severe primary osteoarthritis left knee joint she also has chronic low back pain localized left sacroiliac region. We talked about treatment options today in detail she wanted both sites injected therefore under sterile conditions I injected the patient's left knee joint and the patient's left sacroiliac bursa in the office today with 4 cc 0.5% bupivacaine and 20 mg of Kenalog each for a total of 2 injections. The patient tolerated the procedures well. I will see her back as needed we can do this again in 3 months if necessary she voiced understanding and agreed with the above plan she will call for any further problems difficulties or questions. Not available 09/25/2024 10:45:55 Plan of Treatment Reminders Order Date Submit Date Provider Last Modified By Organization Details Last Modified Time Details Appointments Any 5 2024 08:45A CHIARA Valenzuela Not available Not available Not available Lab None recorded. Referral None recorded. Procedures injection /aspirati on joint/bur sa (PROC) 2024 025 [email or web address] In-Office Order, Internal Use Only DO Not Attach Compendium DO Not Attach Compendium, Do Not Delete/merge, [id number] 09/25/2024 10:20:17 injection /aspirati on joint/bur sa (PROC) 2024 025 [email or web address] In-Office Order, Internal Use Only DO Not Attach Compendium DO Not Attach Compendium, Do Not Delete/merge, [id number] 09/25/2024 10:20:17 injection /aspirati on joint/bur sa (PROC) 2023 024 [email or web address] In-Office Order, Internal Use Only DO Not Attach Compendium DO Not Attach Compendium, Do Not Delete/merge, [id number] 05/22/2024 09:42:08 injection /aspirati on joint/bur sa (PROC) 2023 024 [email or web address] In-Office Order, Internal Use Only DO Not Attach Compendium DO Not Attach Compendium, Do Not Delete/merge, [id number] 05/22/2024 10:20:15 injection /aspirati on joint/bur sa (PROC) 2023 024 [email or web address] In-Office Order, Internal Use Only DO Not Attach Compendium DO Not Attach Compendium, Do Not Delete/merge, [id number] 04/10/2024 09:33:15 knee aspiratio n/injecti on (PROC) 2023 024 [email or web address] In-Office Order, Internal Use Only DO Not Attach Compendium DO Not Attach Compendium, Do Not Delete/merge, [id number] 01/17/2024 15:16:45 injection /aspirati on joint/bur sa (PROC) 2023 024 [email or web address] In-Office Order, Internal Use Only DO Not Attach Compendium DO Not Attach Compendium, Do Not Delete/merge, [id number] 11/13/2023 15:45:52 injection /aspirati on joint/bur sa (PROC) 2023 024 [email or web address] In-Office Order, Internal Use Only DO Not Attach Compendium DO Not Attach Compendium, Do Not Delete/merge, [id number] 11/13/2023 14:33:13 Surgeries None recorded. Imaging XR, hip + pelvis, unilatera l 2023 024 [email or web address] [facility] [place], [address], [place], [address], 05/22/2024 11:01:36 XR, knee 2023 024 [email or web address] [facility] [place], [address], [place], [address], 05/22/2024 11:01:36 XR, hand 2023 024 [email or web address] [facility] [place], [address], [place], [address], 04/10/2024 09:53:35 Medication Orders bupivacai ne HCl 0.5 % (5 mg/mL) injection solution 2024 025 [email or web address] [facility], [address], [place], [address], 09/25/2024 10:31:59 Kenalog 10 mg/mL suspensio n for injection [address] [facility] [address] [facility], [address] [place], [address], 09/25/2024 10:31:59 bupivacai ne HCl 0.5 % (5 mg/mL) injection solution [address] [facility], [address] [place], [address], 09/25/2024 10:31:59 Kenalog 10 mg/mL suspensio n for injection [address] [facility], [address] [place], [address], 09/25/2024 10:31:59 bupivacai ne HCl 0.5 % (5 mg/mL) injection solution [address] [facility], [address] [place], [address], 05/22/2024 10:21:11 Kenalog 10 mg/mL suspensio n for injection [address] [facility], [address] [place], [address], 05/22/2024 10:21:11 bupivacai ne HCl 0.5 % (5 mg/mL) injection solution [address] [facility], [address] [place], [address], 05/22/2024 10:21:11 Kenalog 10 mg/mL suspensio n for injection [address] [facility], [address] [place], [address], 05/22/2024 10:21:11 bupivacai ne HCl 0.5 % (5 mg/mL) injection solution [address] [facility], [address] [place], [address], 04/10/2024 09:53:35 Kenalog 10 mg/mL suspensio n for injection [address] [facility], [address] [place], [address], 04/10/2024 09:53:35 prednison e 10 mg tablets in a dose pack [address] [facility], [address] [place], [address], 09/25/2024 10:21:24 bupivacai ne HCl 0.5 % (5 mg/mL) injection solution [address] [facility] [address], [address] [place], [address], 11/13/2023 14:56:15 Kenalog 10 mg/mL suspensio n for injection [address] [facility], [address] [place], [address], 11/13/2023 14:56:15 bupivacai ne HCl 0.5 % (5 mg/mL) injection solution [address] [facility] [address], [address] [place], [address], 11/13/2023 14:56:15 Kenalog 10 mg/mL suspensio n for injection [address] [facility], [address] [place], [address], 11/13/2023 14:56:15 Patient TargetsNo targets recorded. Patient InstructionsNo instructions recorded. Reason for Referral None Reported. Results Created Date Observation Date Name Description Value Unit Range Abnormal Flag Note LastModifiedBy Organization Detail LastModifiedTime 04/10/20 24 XR, hand No observ ation record ed. [email or web address] [facility] [place] [address], [place], [address], 04/10/2024 09:40:52 05/22/20 24 XR, hip + pelvi s, unila teral No observ ation record ed. [email or web address] [facility] [place] [address], [place], [address], 05/22/2024 10:17:36 05/22/20 24 XR, knee No observ ation record ed. [email or web address] [facility] [place] [address], [place], [address], 05/22/2024 10:16:41 Result Notes None recorded. Problems Name Problem SNOMED Code Status Onset Date Resolution Date Notes Provider Name and Address Organization Details Recorded Time Lumbar radiculopa thy 425738308 Active 2021 Not Available [facility] 3 06:11:04 Acquired trigger finger 2975504 Active Not Available [facility] 3 06:11:04 Pain of left elbow joint 6351164042120 9104 Active 2021 Not Available [facility] 3 06:11:04 Radiothera py follow-up 065833688 Active Not Available [facility] 3 06:11:04 Pain of joint of wrist 746996658 Active Not Available [facility] 3 06:11:04 Osteoarthr itis of knee 504414123 Active Not Available [facility] 3 06:11:04 Lumbar spondylosi s 336146075 Active 2021 Not Available [facility] 3 06:11:04 Closed Colles' fracture 187668273 Active Not Available [facility] 3 06:11:04 Chronic low back pain 045288624 Active 2021 Not Available [facility] 3 06:11:04 Thoracic back pain 148951677 Active 2021 Not Available [facility] 3 06:11:05 Low back pain 131131347 Active 2021 Not Available [facility] 3 06:11:05 Knee pain Active Not Available [facility] 3 06:11:05 Lateral epicondyli tis of left humerus 0479933349984 00 Active 2021 Not Available [facility] 3 06:11:05 Pain of left hip joint 2878000111155 00 Active 2021 Not Available [facility] 3 06:11:05 Trochanter ic bursitis of left hip 2337092216634 03 Active 2020 Not Available [facility] 3 06:11:05 Osteoarthr itis of left knee joint 0629301420280 09 Active 2021 Not Available [facility] 3 06:11:05 Osteoarthr itis 856646834 Active Not Available [facility] 3 06:11:05 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 2021 Not Available [facility] 3 06:11:05 Pain of right knee joint 8223031117909 00 Active 2022 CAMI Patel, [place] [facility] 3 14:55:06 Bilateral osteoarthr itis of knees 0861182099056 07 Active 2022 Claudia beach, [place] [facility] 3 15:26:06 Pain of right hip joint 2082178250566 02 Active 2022 CAMI Patel, [place] [facility] 3 16:00:21 Trochanter ic bursitis of right hip 5768100627324 00 Active 2022 CHIARA Arreguin [address], [place], [address] , [place] [facility] 3 16:37:49 Fracture of inferior pubic ramus 240086441 Active 2022 CHIARA Arreguin [address], [address], [place], [address] , [facility] 3 16:39:00 Contusion of left hip region 5786408689459 9102 Active 2022 CHIARA Arreguin [address], [address], [place], [address] , [place] [facility] 3 11:07:40 Pain in right hand 4830723536654 09 Active 2023 CAMI Patel, [place] [facility] 4 09:18:22 Trigger finger of right hand 1035285741162 9101 Active 2023 Susie Mercer null, [place] [facility] 4 09:31:25 Pain of left knee joint 0139840174769 07 Active 2023 CAMI Patel, [place] [facility] 4 09:37:19 Pain in left sacroiliac joint 1215791776838 9102 Active 2023 CHIARA Arreguin [address], [address], [place], [address] , [facility] 4 10:18:12 Problem Notes None recorded. Procedures Surgical History Date Name Laterality Status Provider Name and Address Organization Details Recorded Time 3 Ortho - Cortisone Injection completed Antoine Abreu MD [address], [address], [place], [address], [facility] 10/24/2022 15:24:25 Foot Surgery completed Jessie Stark CNA [place] [facility] 09/25/2024 10:22:15 Imaging Results Imaging Date Name Status LastModified by Organiz ation Details LastModified Time 04/10/2024 XR, hand completed [email or web address] [facility] [place] [address], [place], [address], 04/10/2024 09:40:52 05/22/2024 XR, hip + pelvis, unilateral completed [email or web address] [facility] [place] [address], [place], [address], 05/22/2024 10:17:36 05/22/2024 XR, knee completed [email or web address] [facility] [place] [address], [place], [address], 05/22/2024 10:16:41 Procedure Notes None recorded. Medical Equipment None Reported. Allergies Allergen ID Allergen Name Allergen Category Reaction Reaction Severity Criticality Documentation Date Start Date Code Code System Note Provider Name and Address Organization Details Recorded Time 22597 gabapenti n medicatio n Not available Not available Not available 09/06/2022 95037 RxNorm Not Available [facility] 3 06:17:06 Medications Name Sig Start Date Stop Date Status Note LastModified by Organization Details LastModified Time relion pen needles 32g x 4mm 32g x 4 mm misc active Not Available Not Available No t Available losartan 50 mg tablet TAKE 1 TABLET BY MOUTH ONCE DAILY AT BEDTIME 05/24 completed Not Available Not Available Not Available celecoxib 200 mg capsule Take 1 capsule every day by oral route. 05/24 completed Not Available Not Available Not Available Santyl 250 unit/gram topical ointment APPLY TO RIGHT FOOT WOUND ONCE DAILY WITH A BULKY DRY DRESSING 05/24 completed Not Available Not Available Not Available cyclobenzap rine 10 mg tablet 12/29 completed Not Available Not Available Not Available amoxicillin 500 mg capsule TAKE 1 CAPSULE BY MOUTH EVERY 8 HOURS 09/25 completed Not Available Not Available Not Available pioglitazon e 15 mg tablet TAKE 1 TABLET BY MOUTH ONCE DAILY 12/29 completed Not Available Not Available Not Available atorvastati n 40 mg tablet TAKE 1 TABLET BY MOUTH ONCE DAILY active Not Available Not Available No t Available imipramine 50 mg tablet TAKE 1 TABLET BY MOUTH ONCE DAILY 12/29 completed Not Available Not Available Not Available carvedilol 25 mg tablet TAKE 1 TABLET BY MOUTH TWICE DAILY WITH FOOD 05/24 completed Not Available Not Available Not Available carvedilol 6.25 mg tablet TAKE 1 TABLET BY MOUTH TWICE DAILY WITH MEALS active Not Available Not Available No t Available prednisone 10 mg tablet TAKE 1 TABLET BY MOUT 3 TIMES DAILY FOR 3 DAYS, THEN 1 TABLET TWICE DAILY FOR 2 DAYS, THEN 1 TABLET ONCE DAILY FOR 1 DAY 09/25 completed Not Available Not Available Not Available doxycycline hyclate 100 mg capsule 12/29 completed Not Available Not Available Not Available atorvastati n 20 mg tablet TAKE 1 TABLET BY MOUTH ONCE DAILY 05/24 completed Not Available Not Available Not Available carvedilol 12.5 mg tablet TAKE 1 TABLET BY MOUTH TWICE DAILY 05/24 completed Not Available Not Available Not Available clindamycin HCl 300 mg capsule TAKE 1 CAPSULE BY MOUTH EVERY 6 HOURS UNTIL GONE 05/24 completed Not Available Not Available Not Available albuterol sulfate 2.5 mg/3 mL (0.083 %) solution for nebulizatio n USE 2 VIAL IN NEBULIZER EVERY 6 HOURS NEEDED FOR SHORTNESS OF BREATH OR WHEEZING 05/24 completed Not Available Not Available Not Available loperamide 2 mg capsule 05/24 completed Not Available Not Available Not Available trazodone 50 mg tablet TAKE 2 TABLETS BY MOUTH ONCE DAILY AT BEDTIME active Not Available Not Available No t Available azithromyci n 250 mg tablet TAKE 1 TABLET BY MOUTH ONCE DAILY 12/31 completed Not Available Not Available Not Available atenolol 100 mg tablet 12/29 completed Not Available Not Available Not Available hydrocodone 5 mg-acetamin ophen 325 mg tablet TAKE 1 TO 2 TABLETS BY MOUTH EVERY 6 HOURS NEEDED FOR PAIN 05/24 completed Not Available Not Available Not Available meloxicam 15 mg tablet 12/29 completed Not Available Not Available Not Available sucralfate 1 gram tablet TAKE 1 TABLET BY MOUTH THREE TIMES DAILY 30 MINUTES BEFORE MEALS 05/24 completed Not Available Not Available Not Available lisinopril 20 mg tablet 12/29 completed Not Available Not Available Not Available ondansetron HCl 4 mg tablet 12/29 completed Not Available Not Available Not Available famotidine 40 mg tablet TAKE 1 TABLET BY MOUTH ONCE DAILY 05/24 completed Not Available Not Available Not Available bupivacaine HCl 0.5 % (5 mg/mL) injection solution Take 20 mg by injection route. 2024 active Not Available Not Available Not Avai lable prednisone 20 mg tablet 12/29 completed Not Available Not Available Not Available alendronate 70 mg tablet 12/29 completed Not Available Not Available Not Available metronidazo le 250 mg tablet TAKE 1 TABLET BY MOUTH THREE TIMES DAILY FOR 10 DAYS 05/24 completed Not Available Not Available Not Available acetaminoph en 300 mg-codeine 30 mg tablet TAKE 1 TABLET BY MOUTH EVERY 6 HOURS NEEDED FOR PAIN 05/24 completed Not Available Not Available Not Available clopidogrel 75 mg tablet TAKE 1 TABLET BY MOUTH ONCE DAILY 05/24 completed Not Available Not Available Not Available ciprofloxac in 250 mg tablet TAKE 1 TABLET BY MOUTH TWICE DAILY FOR 10 DAYS 05/24 completed Not Available Not Available Not Available amlodipine 5 mg tablet 12/29 completed Not Available Not Available Not Available ciprofloxac in 500 mg tablet 12/29 completed Not Available Not Available Not Available sulfamethox azole 800 mg-trimetho prim 160 mg tablet TAKE 1 TABLET BY MOUTH EVERY 12 HOURS 05/24 completed Not Available Not Available Not Available tramadol 50 mg tablet TAKE 1 TABLET BY MOUTH EVERY 6 HOURS NEEDED FOR PAIN 12/29 completed Not Available Not Available Not Available triamterene 37.5 mg-hydrochl orothiazide 25 mg capsule 12/29 completed Not Available Not Available Not Available carvedilol 3.125 mg tablet TAKE 1 TABLET BY MOUTH TWICE DAILY WITH MEALS 09/25 completed Not Available Not Available Not Available lidocaine-p rilocaine 2.5 %-2.5 % topical cream APPLY 30 MINUTES PRIOR TO DIALYSIS 12/29 completed Not Available Not Available Not Available prednisone 10 mg tablets in a dose pack Take 1 tab by mouth, 3 times a day for 3 daysTake 1 tab by mouth 2 times a day for 2 daysTake 1 tab by mouth once a day for 1 day 09/25 completed Not Available Not Available Not Available oxycodone-a cetaminophe n 5 mg-325 mg tablet 12/29 completed Not Available Not Available Not Available amoxicillin 875 mg tablet TAKE 1 TABLET BY MOUTH TWICE DAILY UNTIL GONE 05/24 completed Not Available Not Available Not Available dicyclomine 20 mg tablet 05/24 completed Not Available Not Available Not Available OneTouch Ultra Test strips USE 1 STRIP TO CHECK GLUCOSE SIX TIMES DAILY active Not Available Not Available No t Available Kenalog 10 mg/mL suspension for injection Take 20 mg by injection route. 2024 active [facility]: 0003- [phone]- 20 Not Available Not Available Not Available doxycycline monohydrate 100 mg capsule TAKE 1 CAPSULE BY MOUTH TWICE DAILY WITH MEALS FOR 7 DAYS 12/29 completed Not Available Not Available Not Available prednisolon e sodium phosphate 1 % eye drops 12/29 completed Not Available Not Available Not Available hydrocodone 7.5 mg-acetamin ophen 325 mg tablet TAKE 1 TABLET BY MOUTH EVERY 6 HOURS NEEDED FOR PAIN 05/24 completed Not Available Not Available Not Available cephalexin 500 mg capsule 12/29 completed Not Available Not Available Not Available pantoprazol e 40 mg tablet,jan yed release TAKE 1 TABLET BY MOUTH EVERY 12 HOURS active Not Available Not Available No t Available ferrous sulfate 325 mg (65 mg iron) tablet TAKE 1 TABLET BY MOUTH TWICE DAILY 05/24 completed Not Available Not Available Not Available metformin 1,000 mg tablet 12/29 completed Not Available Not Available Not Available diclofenac 0.1 % eye drops 12/29 completed Not Available Not Available Not Available esomeprazol e magnesium 40 mg capsule,del ayed release TAKE 1 CAPSULE BY MOUTH ONCE DAILY 05/24 completed Not Available Not Available Not Available tobramycin 0.3 % eye drops INSTILL 1 DROP INTO EACH EYE EVERY 4 HOURS 09/25 completed Not Available Not Available Not Available lisinopril 10 mg tablet TAKE 1 TABLET BY MOUTH ONCE DAILY WITH SUPPER active Not Available Not Available No t Available warfarin 5 mg tablet 12/29 completed Not Available Not Available Not Available losartan 25 mg tablet TAKE 1 TABLET BY MOUTH ONCE DAILY 05/24 completed Not Available Not Available Not Available hydrochloro thiazide 12.5 mg capsule 12/29 completed Not Available Not Available Not Available gabapentin 300 mg capsule TAKE 1 CAPSULE BY MOUTH THREE TIMES DAILY 12/31 completed Not Available Not Available Not Available lidocaine HCl 2 % mucosal solution 12/29 completed Not Available Not Available Not Available irbesartan 75 mg tablet TAKE 1 TABLET BY MOUTH ONCE DAILY AT NOON 05/24 completed Not Available Not Available Not Available amoxicillin 250 mg capsule 12/29 completed Not Available Not Available Not Available morphine ER 15 mg tablet,exte nded release TAKE 1 TABLET BY MOUTH EVERY 12 HOURS 05/24 completed Not Available Not Available Not Available mupirocin 2 % topical ointment APPLY A SMALL AMOUNT TO THE TIP OF LEFT THIRD TOE DAILY 05/24 completed Not Available Not Available Not Available furosemide 20 mg tablet 12/29 completed Not Available Not Available Not Available gabapentin 100 mg capsule TAKE 1 CAPSULE BY MOUTH THREE TIMES DAILY 12/31 completed Not Available Not Available Not Available ergocalcife rol (vitamin D2) 1,250 mcg (50,000 unit) capsule TAKE 1 CAPSULE BY MOUTH ONCE A WEEK active Not Available Not Available No t Available warfarin 1 mg tablet 12/29 completed Not Available Not Available Not Available ibuprofen 600 mg tablet 12/29 completed Not Available Not Available Not Available levofloxaci n 500 mg tablet TAKE ONE TABLET BY MOUTH EVERY 48 HOURS. START TOMORROW 05/24 completed Not Available Not Available Not Available lovastatin 20 mg tablet TAKE 1 TABLET BY MOUTH ONCE DAILY 12/29 completed Not Available Not Available Not Available pioglitazon e 30 mg tablet 12/29 completed Not Available Not Available Not Available losartan 100 mg tablet TAKE 1 TABLET BY MOUTH ONCE DAILY 05/24 completed Not Available Not Available Not Available clotrimazol e 1 % topical cream 12/29 completed Not Available Not Available Not Available imipramine 25 mg tablet 12/29 completed Not Available Not Available Not Available dicyclomine 10 mg capsule TAKE 1 CAPSULE BY MOUTH TWICE DAILY NEEDED FOR ABDOMINAL PAIN active Not Available Not Available No t Available ipratropium bromide 0.02 % solution for inhalation INHALE 1 VIAL IN NEBULIZER EVERY 6 HOURS NEEDED FOR SHORTNESS OF BREATH FOR WHEEZING 12/31 completed Not Available Not Available Not Available amoxicillin 500 mg-potassiu m clavulanate 125 mg tablet 12/29 completed Not Available Not Available Not Available tobramycin 0.3 %-dexametha sone 0.1 % eye drops,suspe nsion INSTILL 1 DROP INTO EACH EYE TWICE DAILY FOR 7 DAYS. SHAKE WELL BEFORE USE AND DO NOT USE MORE THAN 7 DAYS CONSECUTI VELY active Not Available Not Available No t Available cholestyram ine (with sugar) 4 gram oral powder MIX 4 GRAMS OF POWDER WITH LIQUID AND DRINK BY MOUTH WITH FOOD. AVOID OTHER MEDS WITHIN 1 HOUR BEFORE OR 4-6 HOURS AFTER DOSE. 05/24 completed Not Available Not Available Not Available Sensipar 30 mg tablet 12/29 completed Not Available Not Available Not Available calcium acetate(arjun sphate binders) 667 mg capsule 12/29 completed Not Available Not Available Not Available BD Ultra-Fine Mini Pen Needle 31 gauge x 09/21 USE DIRECTED active Not Available Not Available No t Available Lyrica 75 mg capsule 12/29 completed Not Available Not Available Not Available chlorhexidi ne gluconate 0.12 % mouthwash SWISH WITH 30ML OF SOLUTION BY MOUTH FOR 30 SECONDS EVERY 8 HOURS THEN EXPECTORA TE. 05/24 completed Not Available Not Available Not Available hydrocodone 5 mg-acetamin ophen 300 mg tablet 12/29 completed Not Available Not Available Not Available OneTouch Ultra2 Meter kit 12/29 completed Not Available Not Available Not Available lidocaine (PF) 10 mg/mL (1 %) injection solution In office injection administe red by the provider 06/27 completed [facility]: 0409- [id number]- [id number] Not Available Not Available Not Available lidocaine (PF) 5 mg/mL (0.5 %) injection solution Take 30 mg by injection route. 05/24 completed Not Available Not Available Not Available ProAir HFA 90 mcg/actuati on aerosol inhaler INHALE 2 PUFFS BY MOUTH 4 TIMES DAILY NEEDED FOR SHORTNESS OF BREATH FOR WHEEZING 05/24 completed Not Available Not Available Not Available Januvia 25 mg tablet 12/29 completed Not Available Not Available Not Available Januvia 50 mg tablet 12/29 completed Not Available Not Available Not Available Januvia 100 mg tablet TAKE 1 TABLET BY MOUTH ONCE DAILY active Not Available Not Available No t Available sevelamer carbonate 800 mg tablet TAKE 1 TABLET BY MOUTH THREE TIMES DAILY WITH MEALS active Not Available Not Available No t Available Voltaren 1 % topical gel 12/29 completed Not Available Not Available Not Available Synvisc-One 48 mg/6 mL intra-artic ular syringe [facility] 2024 active Not Available Not Available Not Avai lable GaviLyte-N 420 gram oral solution 12/29 completed Not Available Not Available Not Available Besivance 0.6 % eye drops,suspe nsion 12/29 completed Not Available Not Available Not Available Triphrocaps 1 mg capsule TAKE 1 CAPSULE BY MOUTH ONCE DAILY active Not Available Not Available No t Available pen needle, diabetic 32 gauge x USE DIRECTED active Not Available Not Available No t Available Prolia 60 mg/mL subcutaneou s syringe INJECT 1ML EVERY 6 MONTHS DIRECTED active Not Available Not Available No t Available NovoTwist 32 gauge x 5 needle USE DIRECTED 05/24 completed Not Available Not Available Not Available Xarelto 10 mg tablet 12/29 completed Not Available Not Available Not Available ropivacaine (PF) 5 mg/mL (0.5 %) injection solution Take 20 mg by injection route. 05/24 completed [facility] [id number] [id number] Not Available Not Available Not Available Lotemax 0.5 % eye gel drops 12/29 completed Not Available Not Available Not Available Eliquis 2.5 mg tablet 12/29 completed Not Available Not Available Not Available Prolensa 0.07 % eye drops 12/29 completed Not Available Not Available Not Available Victoza 3-Agustín 0.6 mg/0.1 mL (18 mg/3 mL) subcutaneou s pen injector INJECT 1.8 MG (0.3 ML) SUB-Q AT BEDTIME. 05/24 completed Not Available Not Available Not Available Tresiba FlexTouch U-100 insulin 100 unit/mL (3 mL) subcutaneou s pen INJECT 10 UNITS SUBCUTANE OUSLY ONCE DAILY AT BEDTIME active Not Available Not Available No t Available Vemlidy 25 mg tablet TAKE 1 TABLET BY MOUTH EVERY DAY WITH FOOD ON DIALYSIS DAYS. TAKE MEDICATIO N AFTER TREATMENT active Not Available Not Available No t Available OneTouch Ultra Blue Test Strip USE 1 STRIP TO CHECK GLUCOSE SIX TIMES DAILY DIRECTED active Not Available Not Available No t Available Lokelma 5 gram oral powder packet TAKE ONE DOSE BY MOUTH TONIGHT active Not Available Not Available No t Available Vitals Date Recorded Body height Body mass index (BMI) Body weight Provider Name and Address Organization Details Last Updated DateTime 11/13/2023 142.24 cm 25.1 kg/m2 10761.35 g Susie Mercer [facility] [employer] [facility] 11/13/2023 14:26:39 Date Recorded Body height Body mass index (BMI) Body weight Provider Name and Address Organization Details Last Updated DateTime 01/17/2024 142.24 cm 27.6 kg/m2 15389.86 g Isamar Burrisjacob, ATC L [facility] [employer] 01/17/2024 15:15:43 Date Recorded Body height Body mass index (BMI) Body weight Provider Name and Address Organization Details Last Updated DateTime 04/10/2024 142.24 cm 25.1 kg/m2 80338.35 g Jessie Lincoln, DATA [employer]ELOPER [facility] [employer] [facility] [employer] 04/10/2024 09:17:43 Date Recorded Body height Body mass index (BMI) Body weight Provider Name and Address Organization Details Last Updated DateTime 05/22/2024 149.86 cm 25.4 kg/m2 76304.64 g Jessie Lincoln, [employer] DEVELOPER [facility] [employer] [facility] [employer] 05/22/2024 09:36:46 Date Recorded Body height Body mass index (BMI) Body weight Provider Name and Address Organization Details Last Updated DateTime 09/25/2024 142.24 cm 25.3 kg/m2 40112.94 g Jessie Lincoln, [employer]ELOPER [facility] [employer] [facility] [employer] 09/25/2024 10:20:33 Social History Question Answer Notes LastModified by Organizat ion Details LastModified Time Tobacco Smoking Status Never Smoker Jessie Lincoln, DATA [employer] DEVELOPER null, [facility] [employer] [facility] [employer] 05/24/2023 10:08:58 What Is Your Level Of Alcohol Consumption? None [id number] Information not available 09/06/2022 Sex: Unknown Functional Status None recorded. Mental Status None recorded. Family History Relationship Description Onset Age of this Age Resolved Age Notes LastModified by Organization Details LastModified Time Father Heart disease [id number] Not available 09/06/2022 06:06:34 Father Essential hypertension [id number] Not available 09/06/2022 06:06:34 Mother Heart disease [email or web address] Not available 2022 10:08:41 Medical History Condition Response ARTHRITIS Y USE OF BLOOD THINNERS Y ANEMIA/BLOOD DISORDER Y HEPATITIS / LIVER DISEASE Y DIABETES, TYPE Y OSTEOPOROSIS Y HYPERTENSION Y Gynecological HistoryNo gynecological history recorded. Obstetrics History GPAL:G 0 P 0 0 0 0 Past Encounters Encounter ID Performer Location Encounter Start Date Encounter Closed Date Diagnosis/Indication Diagnosis SNOMED-CT Code Diagnosis ICD10 Code Diagnosis Note [id number] CHIARA Arreguin [facility] [address] [facility] [address] [place] [address] 02/17/2021 00:00:00 02/17/2021 15:38:54 [id number] Antoine Abreu MD [facility] [address] [place] [address] 03/17/2021 00:00:00 03/17/2021 13:49:47 [id number] Antoine Abreu MD [facility] [address] [place] [address] 05/30/2021 00:00:00 05/30/2021 11:01:16 [id number] Antoine bAreu MD [facility] [address] [place] [address] 06/27/2021 00:00:00 06/27/2021 11:51:54 [id number] Antoine Abreu MD [facility] [address] [place] [address] 07/26/2021 00:00:00 07/26/2021 15:19:20 [id number] Antoine Abreu MD [facility] [address] [place] [address] 09/15/2021 00:00:00 09/15/2021 15:46:26 [id number] Antoine Abreu MD [facility] [address] [place] [address] 10/18/2021 00:00:00 10/18/2021 14:47:13 [id number] Antoine Abreu MD [facility] [address] [place] [address] 11/15/2021 00:00:00 11/15/2021 14:19:46 [id number] Antoine Abreu MD [facility] [address] [place] [address] 12/15/2021 00:00:00 12/15/2021 13:34:31 [id number] Antoine Abreu MD [facility] [address] [place] [address] 01/17/2022 00:00:00 01/17/2022 15:40:04 [id number] Antoine Abreu MD [facility] [address] [place] [address] 02/27/2022 00:00:00 02/27/2022 12:48:14 [id number] Antoine Abreu MD [facility] [address] [place] [address] 2022 00:00:00 2022 12:13:48 [id number] Antoine Abreu MD [facility] [address] [place] [address] 05/02/2022 00:00:00 05/02/2022 15:43:04 [id number] Antoine Abreu MD [facility] [address] [place] [address] 05/23/2022 00:00:00 05/23/2022 17:15:11 [id number] Antoine Abreu MD [facility] [address] [place] [address] 06/20/2022 00:00:00 06/20/2022 14:56:07 [id number] Antoine Abreu MD [facility] [address] [place] [address] 10/24/2022 14:42:21 10/24/2022 15:30:28 Pain of left hip joint 8772287500 58485 M25.552 Trochanter ic bursitis of left hip 5548278018 54917 M70.62 Low back pain 697052013 M54.50 Kyphosis d eformity of spine 038710619 M40.209 Osteoarthr itis of left knee joint 1850456696 38230 M17.12 Pain of le ft elbow joint 9676984035 6025476 M25.522 Lateral ep icondylitis of left humerus 8573027254 57159 M77.12 Lumbar radiculopathy 128 496570 M54.16 Lumbar spondylosis 47319 0009 M47.896 Pain of ri ght knee joint 7641192269 43840 M25.561 History of right total knee replacement 7784140740 401668 Z96.651 [id number] Antoine Abreu MD [facility] [address] [place] [address] 11/30/2022 11:19:37 11/30/2022 11:45:46 Osteoarthritis of left knee joint 8342723443 85241 M17.12 [id number] Antoine Abreu MD [facility] [address] [place] [address] 02/06/2023 15:15:39 02/06/2023 16:29:36 Osteoarthritis of left knee joint 8040124932 22668 M17.12 Pain of ri ght hip joint 6750539874 76973 M25.551 History of right total knee replacement 3256598439 479491 Z96.651 Trochanter ic bursitis of right hip 4659549829 94890 M70.61 Fracture o f inferior pubic ramus 303603163 S32.592S [id number] Velasquez Stearns MD [facility] [address] [place] [address] 05/24/2023 09:47:00 05/24/2023 11:05:33 Pain of left hip joint 8119816754 52602 M25.552 Trochanter ic bursitis of left hip 5742203899 00618 M70.62 Osteoarthr itis of left knee joint 1851639428 07400 M17.12 Knee pain 89869085 M25.5 69 Contusion of left hip region 0390448704 6793866 S70.02XA History of right total knee replacement 4782683063 367660 Z96.633 [id number] Duarte Mora MD [facility] [address] [place] [address] 11/13/2023 14:16:28 11/13/2023 14:53:48 Osteoarthritis of left knee joint 2437420471 52577 M17.12 Trochanter ic bursitis of left hip 5822003471 94489 M70.62 [id number] Duarte Mora MD [facility] [address] [place] [address] 01/17/2024 15:11:40 01/17/2024 15:38:24 Osteoarthritis of left knee joint 3751452963 31527 M17.12 [id number] Duarte Mora MD [facility] [address] [place] [address] 04/10/2024 09:13:43 04/10/2024 09:36:50 Pain in right hand 9755354660 40303 M79.641 Trigger fi nger of right hand 1884003060 3637278 M65.578 [id number] Duarte Mora MD [facility] [address] [place] [address] 05/22/2024 09:32:58 05/22/2024 11:01:36 Trochanteric bursitis of left hip 3979671694 42803 M70.62 Osteoarthr itis of left knee joint 8585111941 54149 M17.12 Pain of le ft knee joint 5064064248 87211 M25.562 Lumbar spondylosis 11179 0009 M47.896 Low back pain 909769935 M54.50 Pain in le ft sacroiliac joint 3691790479 2735433 M53.3 [id number] Duarte Mora MD [facility] [address] [place] [address] 09/25/2024 10:01:48 09/25/2024 10:35:12 Pain of left hip joint 0209302429 01994 M25.552 Osteoarthr itis of left knee joint 3066373824 26716 M17.12 Pain of le ft knee joint 7946640451 73115 M25.562 Trochanter ic bursitis of left hip 7243934525 11707 M70.62 Pain in le ft sacroiliac joint 3016062082 2088731 M53.3 Low back pain 511751945 M54.50 Lumbar radiculopathy 128 905071 M54.16 Health Concerns Section Related Observation LastModified by Organization Detai ls LastModified Time None Recorded Concern Status LastModified by Organization Details LastModified Time None Recorded Advance Directives Directive None Recorded Payers Encounter Date Sequence Insurance Name Policy Number Policy Garya Covered Member ID Garay Member ID Guarantor Name 11/13/2023 1 [facility] - MEDICARE COMPLETE PLAN 2 (MEDICARE REPLACEMENT HMO) [id number] Shasta Farnsworth Hasan [id number] Shasta MalaveHassaba 11/13/2023 2 [place] OR MEDICARE REPLACEMENT PRIMARY) Shasta Gonzales n [id number] Shasta Farnsworth-Hassaba 01/17/2024 1 [facility] [employer] - MEDICARE COMPLETE PLAN 2 (MEDICARE REPLACEMENT HMO) [id number] Shasta Farnsworth Hasan [id number] Shasta MalaveHassaba 01/17/2024 2 [place] OR [place] REPLACEMENT PRIMARY) Shasta Gonzales n [id number] Shasta Farnsworth-Hassaba 04/10/2024 1 [facility] - MEDICARE COMPLETE PLAN 2 (MEDICARE REPLACEMENT HMO) [id number] Shasta Jaxson Ali Hasan [id number] Shasta Farnsworth-Hassaba 04/10/2024 2 [place] OR MEDICARE REPLACEMENT PRIMARY) Shasta Gonzales n [id number] Shasta Farnsworth-Hassaba 05/22/2024 1 [facility] [employer] [employer] - MEDICARE COMPLETE PLAN 2 (MEDICARE REPLACEMENT HMO) [id number] Shasta Jaxson Farnsworth Hasan [id number] Shasta Farnsworth-Hassaba 05/22/2024 2 [place] OR MEDICARE REPLACEMENT PRIMARY) Shasta Gonzales n [id number] Shasta Wheatley 09/25/2024 1 [facility] - MEDICARE COMPLETE PLAN 2 (MEDICARE REPLACEMENT HMO) [id number] Shasta Obando [id number] Shasta Wheatley 09/25/2024 2 [place] OR MEDICARE REPLACEMENT PRIMARY) Shasta Gonzales n [id number] Shasta Wheatley Notes Date Note Type Note Provider Name and Address Organization Details Recorded Time 11/13/2023 text/html patient returns complaining of left knee pain and left hip pain she has chronic trochanteric bursitis she also has moderately severe primary osteoarthritis in the left knee. She denies any new trauma or injury we have not seen her for nearly 6 months. She comes in today requesting repeat cortisone injection left hip and left knee denies any new symptoms no new trauma or injury no erythema effusion or signs of infection and no weakness or radicular pain from her back. Shots of cortisone helped previously. Denies any change in her medical history recently. CHIARA Arreguin [address], [place], [address], [employer] 11/13/2023 14:43:32 01/17/2024 text/html Patient returns for Synvisc-One injection into the left knee. She brings this from the specialty pharmacy today for our use. She has moderately severe primary osteoarthritis left knee she has had previous gel shots these worked well for her she would like to do that again today. Denies any new trauma or injury left knee joint shows 1-2 mm of joint space remaining in the medial compartment and similar findings in the patellofemoral articulation with subchondral sclerotic changes as well. Denies any new problems with the knee, but the old pain relief has worn off from her previous treatment. She would like to proceed with Synvisc-One today. CHIARA Arreguin [address], [place], [address], [employer] 01/17/2024 15:33:52 04/10/2024 text/html Patient returns with a new problem. She is complaining of pain and tenderness at the base of the right 4th finger in the palm at the A1 rigo site. She states when she wakes up in the morning her right 4th finger is locked in flexion she has to painfully snap it back into extension using her other hand. She notes she can not do anything in terms of gripping or grasping because it causes pain. It is particularly painful when her finger snaps and catches in flexion and snaps back into extension. She has a right 4th trigger finger. This has been ongoing for a couple of weeks now. She has tried using Voltaren cream soaking it in warm water and trying to move it but this is not really helping. She comes in today for initial evaluation treatment. She denies any trauma or injury no erythema effusion or signs of infection and no numbness or tingling. She states the pain is about a 7 on a scale of 1-10.The patient's past medical history was reviewed with the patient from her previous intake sheets she states everything is basically unchanged today. CHIARA Arreguin [address] [place] [address] [address], [place], [address], [place] [facility] [employer] 04/10/2024 09:43:15 05/22/2024 text/html Patient returns complaining of left knee pain and left sacroiliac low back pain. I have seen her previously for trochanteric bursitis as well she states the trochanteric bursitis has resolved with treatment and time. She has had some issues with her back chronically. Recently her back pain has flared up again localized to the left sacroiliac region radiating to the left buttock but not down the leg no bowel or bladder symptoms no numbness or tingling or weakness. She also has left knee pain mostly medially we are going to get new updated x-rays of her left knee it has been more than a year since her last x-rays we are also going to get some x-rays of her pelvis. She is able to ambulate uses a cane for support. She states she likes to walk for exercise and also has a sit-down pedal machine that she uses to keep her legs moving. Denies any new trauma or injury no effusion or swelling no erythema heat or other signs of infection in her knee or her back region. She states the pain at times it is about an 8 on a scale of 1-10 she is failing conservative measures on her own at home she would like to have her back and her knee injected again today. I last saw her 4 months ago we did a Synvisc-One injection at that time she states she got excellent relief until recently and was quite pleased with that but it did not last 6 months. CHIARA Arreguin [address] [facility] [address], [place], [address], [employer] 05/22/2024 10:21:03 09/25/2024 text/html Patient returns complaining of left knee pain and left low back pain in the sacroiliac region. She has severe primary osteoarthritis of the left knee joint with [id number] changes in the medial compartment and mild varus deformity. The patellofemoral articulation also shows significant narrowing which is near [id number]. Her lumbar spine also shows significant degenerative changes and she has a mildly narrowed but not [id number] left hip femoroacetabular joint. Bony structures of the femur and pelvis are otherwise unremarkable. Shots of cortisone typically give her good relief she does not have any radicular pain down the leg no groin pain the pain is localized to the left knee and the left sacroiliac region. Today she states it is about a 9 on a scale of 1-10. It prevents her from getting around as she would like she has trouble standing walking for long periods she has to use a cane for support uses a wheelchair to get around for longer trips. She comes in today requesting repeat cortisone injections both sites. New past medical history sheet was reviewed and signed on the intake sheet of today's date drug allergies current medications family social history previous surgical history 10 point review of systems was reviewed and discussed in detail today with the patient. CHIARA Arreguin [address], [place], [address], [employer] 09/25/2024 10:46:25 OBGyn Episode No OBEpisode recorded.
--- OUTSIDE RECORDS SUMMARY | 2024-11-05 14:51 | XMS_ITS | Encounter Summary ---
Author Organization [facility] Address [address] [facility] [place] [address] Care Team Providers Care Color Finisher Name Role Phone David Coppola MD Primary Care Provider + [phone] Dvaid Coppola MD Unavailable [phone] David Coppola MD Unavailable [phone] Virginie Corea RN Unavailable [phone] Encounter Details Date Type Department Care Team (Late st Contact Info) Description 03/19/2023 Telephone [facility] . 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 Answer Date of Assessment Author No 08/31/2020 11:44 AM Brooklyn Cortez RN * Is person blind or have serious difficulty seeing? Answer Date of Assessment Author No 08/31/2020 11:44 AM Brooklyn Cortez RN * Does person have serious difficulty walking/climbing stairs? Answer Date of Assessment Author No 08/31/2020 11:44 AM Brooklyn Cortez RN * Does person have difficulty dressing/bathing? Answer Date of Assessment Author No 08/31/2020 11:44 AM Brooklyn Cortez RN * Does person have difficulty doing errands alone? Answer Date of Assessment Author No 08/31/2020 11:44 AM Brooklyn Cortez RN documented as of this encounter Mental Status * Does person have difficulty concentrating/remembering/making decisions? Answer Entry Date Author No 08/31/2020 11:44 AM Brooklyn Cortez RN documented in this encounter Miscellaneous Notes * Telephone Encounter - Lima Martins - 03/19/2023 3:44 PM CDT As of 03/19/23 the patient's Medicaid spenddown has not been met documented in this encounter Plan of Treatment Upcoming Encounters Date Type Department Care Team (Late st Contact Info) Description 11/11/2024 11:00 AM CDT Appointment [facility] Health Vascular Services [address] [facility], [address] [place] [address] [place] [address] [facility] [address] [place] [address] [place] [address] [facility] [address] [place] [address] Cristo Fontenot MD [address] [place] [address] documented as of this encounter Visit Diagnoses Not on filedocumented in this encounter Care Teams Color Finisher Relationship Specialty Start Date End Date David Coppola MD [address] [place] [phone] PCP - General 08/15/16 [place] [address] [place] [phone] [facility] 02/08/15 David Coppola MD [address] [place] [phone] [facility] 08/15/16 Virginie Corea, ABENA Picu Nurse 02/23/15 documented as of this encounter
--- OUTSIDE RECORDS SUMMARY | 2024-11-05 15:07 | XMS_ITS | CONTINUITY OF CARE DOCUMENT ---
Author Name narakana narakana Address Unknown Organization [facility] Address [address] [facility] [facility] [address] [place] [address] Phone [phone] Care Team Providers Care Hand Tile Maker Name Role Phone Herbert Weller MD Unavailable NOY PENN MD Unavailable NOY PENN MD Unavailable [phone] PROBLEMS Condition Status Date Provider Notes EKG [...] In-person encounter Office Visit Herbert Weller MD [facility] EK[facility] History of Hypertension:Family History of Hypertension:PVDHypox iaHypertensionAtrial fibrillation VITAL SIGNS Date Observation Value Provider Body Mass Index (Ratio) 28.00 kg/m2 Sylvie Weller MD blood pressure, diastolic 52 mm[Hg] To reshma Negro blood pressure, systolic 81 mm[Hg] Ton jair Negro pulse rate 40 /min Anupama Negro oxygen saturation, oximetry 88 % Anupama Negro respiratory rate E&M 16 /min [facility] blood pressure, resting Yes [facility] height E&M 58 [in_i] [facility] weight E&M 134 [lb_av] [facility] temperature site temporal Shea Tank sley temperature E&M 97.3 [degF] Shea Tanks zackary ALLERGIES No Known Drug Allergies HISTORY OF MEDICATION USE Medication Status Instructions Dates Provider Indications Com ments LOSARTAN POTASSIUM 25 MG ORAL TABLET active one tab daily nAupama Negro #90, 90 days supply, Prescribed by [...] E&M reviewed - no changes required Harry eNal [facility] status [facility] Family Member Condition Father Family History of Co ngestive Heart Failure: Father Family History of Hy pertension: Mother Family History of Hy pertension: Mother Family History of Di abetes: Mother Family History of De pression: INSURANCE PROVIDERS Payer name Policy type / Coverage type Ideal red democrat [employer] Medicaid 3 [id number] [facility] MEDICARE COMPLETE HMO Other [id number] ADVANCE DIRECTIVES Name Date DISCUSSED - [...]
[2024-11-05 15:15] LABS: Basophils Percent Auto 0.5 % (0.2-1.2); Eosinophils Absolute Auto 0.1 K/mm3 (0-0.3); Eosinophils Percent Auto 1.5 % (0-4.4); Hematocrit 28.2 % (37.0-47.0); Hemoglobin 8.4 g/dL (12.0-15.0); Immature Granulocyte Absolute 0.02 K/mm3 (0.00-0.031); Immature Granulocyte Percent A 0.3 % (0-0.5); Lymphocytes Absolute Auto 0.91 K/mm3 (0.9-3.2); Lymphocytes Percent Auto 15.4 % (18.3-44.2); Mean Corpuscular HGB Conc 29.8 g/dl (32-36); Mean Corpuscular Hemoglobin 29.7 pg (26-34); Mean Corpuscular Volume 99.6 fl (80-100); Mean Platelet Volume 11.7 fl (7.4-10.4); Monocytes Absolute Auto 0.7 K/mm3 (0.1-0.6); Monocytes Percent Auto 12.4 % (2.6-8.5); Neutrophils Absolute Auto 4.1 K/mm3 (1.3-6.7); Neutrophils Percent Auto 69.9 % (45.5-73.1); Platelet Count Result 139 k/mm3 (150-375); Red Blood Count 2.83 M/mm3 (4.2-5.4); White Blood Count 5.9 K/mm3 (4.5-10.0)
[2024-11-05 15:27] LABS: Alanine Aminotransferase 30 U/L (6-35); Alkaline Phosphatase 205 U/L (38-126); Anion Gap 11 mmol/L (4-12); Aspartate Amino Transferase 38 U/L (14-36); Bilirubin,Total 0.8 mg/dL (0.2-1.3); Blood Urea Nitrogen 30 mg/dL (7-17); Carbon Dioxide 33 mmol/L (22-30); Chloride 89 mmol/L (98-107); Estimated Glomerular Filt Rate 18; Glucose 171 mg/dL (65-110); Lipase 255 U/L (23-300); Magnesium 1.9 mg/dL (1.6-2.3); Potassium 3.5 mmol/L (3.4-5.0); Sodium 133 mmol/L (137-145)
[2024-11-05 15:31] LABS: Prothrombin Time 13.6 Seconds (11.1-14.7)
[2024-11-05 15:32] LABS: Partial Thromboplastin Time 26.9 Seconds (22.3-36.8)
[2024-11-05 15:38] LABS: Anisocytosis 1+; Hypochromasia 1+; Platelet Estimate Slightly Decreased (Adequate)
[2024-11-05 15:39] LABS: Schistocytes None Seen
[2024-11-05] MEDS: PANTOPRAZOLE SODIUM IV 40 MG VIAL 80 MG IV PUSH (18:28)
--- NOTE | 2024-11-05 18:43 | PC.NURSE ---
Pressure ulcer to R heel, pt refused to let this RN look at it. States she was at wound care this morning and dressing was placed this morning.
--- NOTE | 2024-11-05 19:00 | PC.NURSE ---
per [facility] phlebotomy called for blood cultures. 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 attempted x1 with no success.
[2024-11-05 20:51] LABS: Iron 44 ug/dL (37-170)
[2024-11-05 21:00] LABS: Percent Iron Saturation 29 % (20-50)
--- NOTE | 2024-11-05 22:07 | PC.NURSE ---
blood cultures not collected until 2109 from labeling strategist. pt d/c to go home and will get antiboitic tomorrow.
== END 2024-11-05 22:11 | disposition home or self-care (01) ==
PROVIDERS: Registered Nurse; Emergency Provider Physician Assistant; PCP Family Medicine
DX: K27.9 Peptic ulcer, site unspecified, unspecified as acute or chronic, without hemorrhage or perforation (principal); K52.9 Noninfective gastroenteritis and colitis, unspecified; K92.2 Gastrointestinal hemorrhage, unspecified; D64.9 Anemia, unspecified; I12.0 Hypertensive chronic kidney disease with stage 5 chronic kidney disease or end stage renal disease; E11.22 Type 2 diabetes mellitus with diabetic chronic kidney disease; N18.6 End stage renal disease; Z99.2 Dependence on renal dialysis; I48.0 Paroxysmal atrial fibrillation; I27.20 Pulmonary hypertension, unspecified; E11.51 Type 2 diabetes mellitus with diabetic peripheral angiopathy without gangrene; K21.9 Gastro-esophageal reflux disease without esophagitis; K44.9 Diaphragmatic hernia without obstruction or gangrene; K58.9 Irritable bowel syndrome, unspecified; M17.0 Bilateral primary osteoarthritis of knee; Z96.651 Presence of right artificial knee joint; Z96.661 Presence of right artificial ankle joint; Z86.0100 Personal history of colon polyps, unspecified; Z89.431 Acquired absence of right foot; Z89.412 Acquired absence of left great toe; Z98.42 Cataract extraction status, left eye; Z98.41 Cataract extraction status, right eye; Z79.899 Other long term (current) drug therapy; Z79.85 Long-term (current) use of injectable non-insulin antidiabetic drugs; Z79.4 Long term (current) use of insulin; Z79.84 Long term (current) use of oral hypoglycemic drugs; I51.7 Cardiomegaly
CPT/HCPCS: 36415; 74177; 80053; 83540; 83550; 83690; 83735; 85025; 85610; 85730; 86850; 86900; 86901; 87040; 96374; 99284; J2470; Q9967

== ENCOUNTER 2024-11-26 17:26 | Emergency (ER) | payer MEDICARE, MEDICAID, SELFPAY ==
[2024-11-26 17:26] VITALS: BP 137/60; PULSE 66; RESP 18; TEMP 36.4; O2SAT 95
--- OUTSIDE RECORDS SUMMARY | 2024-11-26 18:03 | XMS_ITS | Clinical Summary ---
Author Organization [facility] [address] Address [address] [place] [address] Care Team Providers Care Nursing Informatics Clinical Analyst Name Role Phone David Coppola MD Primary Care Provider [phone] Jacob Suarez MD Unavailable [phone] Ros Seay MD Unavailable [phone] Abdifatah Villa MD Unavailable Issa Clements MD Unavailable [phone] Allergies Active Allergy Reactions Criticality Noted Date Comments Cephalexin Unknown 10/16/2019 Pt does not know. Gabapentin Anaphylaxis,Dizzines s, Hallucinations High 05/24/2020 Sulfamethoxazole-Trim ethoprim Anaphylaxis High 08/09/2020 Medications liraglutide (VICTOZA) 0.6 mg/0.1 mL (18 mg/3 mL) injectionIndications :type 2 diabetes mellitus Inject 1.2 mg under the skin nightly Indications: type [...] (100 mg total) by mouth daily Active Tresiba FlexTouch U-100 100 unit/mL (3 mL) insulin pen Inject 0.1 mL (10 Units total) under the skin nightly Active clotrimazole 1 % cream Apply topically 2 (two) times a day as needed Active traZODone (DESYREL) 50 mg tablet Take 2 tablets (100 mg total) by mouth nightly Active Prolia 60 mg/mL syringe Q 6 months Active atorvastatin (LIPITOR) 40 mg tabletIndications:PA D (peripheral artery disease) Take 1 tablet by mouth once daily 90 tablet 1 024 Active vitamin B complex with C-folic acid (NEPHROCAP) 1 mg capsuleIndications:V itamin Deficiency Prevention Take 1 capsule by mouth daily Active carvediloL (COREG) 6.25 mg tablet Take 1 tablet (6.25 mg total) by mouth 2 (two) times a day with meals Active dicyclomine (BENTYL) 10 mg capsule Take 1 capsule (10 mg total) by mouth Active lisinopriL (PRINIVIL,ZESTRIL) 10 mg tablet Take 1 tablet (10 mg total) by mouth daily Active pantoprazole DR (PROTONIX) 40 mg EC tablet Take 1 tablet (40 mg total) by mouth 2 (two) times a day Active tenofovir alafenamide (VEMLIDY) 25 mg tablet Take 1 tablet (25 mg total) by mouth daily Active biotin 5 mg tablet Take 5 mg by mouth daily Active oxyCODONE (ROXICODONE) 5 mg immediate release tabletIndications:Pa in Take 0.5 tablets (2.5 mg total) by mouth every 4 (four) hours as needed (severe pain) 5 tablet Active aspirin 81 mg chewable tablet Take 1 tablet (81 mg total) by mouth daily 30 tablet 1 025 2025 Active clopidogreL (PLAVIX) 75 mg tablet Take 1 tablet (75 mg total) by mouth daily 30 tablet 1 025 2025 Active OneTouch Ultra Blue Test Strip strip USE STRIP TO CHECK GLUCOSE TWICE DAILY AND DIRECTED 2024 Discontinued NovoTwist 32 gauge x 1/5 needle USE 1 ONCE DAILY 2024 Discontinued cyanocobalamin (Vitamin B-12) 500 mcg tablet Take 1 tablet (500 mcg total) by mouth 2024 Discontinued calcium carbonate (TUMS) 500 mg (200 mg elemental) chewable tablet Take by mouth 2024 Discontinued famotidine (PEPCID) 40 mg tablet Take 1 tablet (40 mg total) by mouth daily 021 2024 Discontinued Triphrocaps 1 mg capsule Take 1 capsule by mouth daily 022 2024 Discontinued sevelamer (RENVELA) 800 mg tabletIndications:Re nal Osteodystrophy with Hyperphosphatemia Take 1 tablet (800 mg total) by mouth 3 (three) times a day with meals 2024 Discontinued cinacalcet (SENSIPAR) 30 mg tablet Take 1 tablet (30 mg total) by mouth daily 2024 Discontinued coenzyme Q10 10 mg capsule Take by mouth 2024 Discontinued tobramycin (TOBREX) 0.3 % ophthalmic solution INSTILL 2 DROPS INTO THE LEFT EYE EVERY 4 HOURS [address] (NexIUM) 40 mg capsule Take 1 capsule (40 mg total) by mouth daily 2024 Discontinued clopidogreL (PLAVIX) 75 mg tablet Take 1 tablet (75 mg total) by mouth daily 025 2024 Discontinued aspirin 81 mg chewable tablet Take 1 tablet (81 mg total) by mouth daily 025 2024 Discontinued polyethylene glycol (MIRALAX) 17 gram/dose bulk powder Take 17 g by mouth daily as needed (constipatio n) 025 2024 Discontinued Active Problems Problem Noted Date Diagnosed Date Pain and swelling of right lower extremity 11/21 ARCADIO (obstructive sleep apnea)- concern for 08/29 Non-healing wound of right lower extremity 08/28 Assessment & Plan (11/22/2024 1:43 PM CDT): Likely secondary to above. Continue wound care per outpatient providers. Assessment & Plan (11/21/2024 3:39 PM CDT): Likely secondary to above. Continue wound care per outpatient providers. Peptic ulcer 08/28/2024 Assessment & Plan (11/22/2024 1:43 PM CDT): History of peptic ulcer with GIB. Patients daughter reports recent admission to [facility] due to concern for GIB. Patient followed up with her outpatient GI. Planning for EGD at the end of November - continue PPI. Assessment & Plan (11/21/2024 3:03 PM CDT): History of peptic ulcer with GIB. Patients daughter reports recent admission to [facility] due to concern for GIB. Patient followed up with her outpatient GI. Planning for EGD at the end of November - closely monitor for bleeding due to starting asa and Plavix as above - continue PPI Assessment & Plan (08/28/2024 1:08 PM PLANT NURSERY WORKER): History of peptic ulcer with GIB Denies sx continue PPI Heart valve disease 04/06/2023 History of GI bleed 02/04/2023 Bradycardia 09/29/2022 Bleeding 09/29/2022 Idiopathic hypotension 09/13/2021 Complication of arteriovenous dialysis fistula 0 09/07/2020 Type 2 diabetes mellitus wit h diabetic peripheral angiopathy and gangrene, without long-term current use of insulin 08/21/2020 Assessment & Plan (08/28/2024 1:05 PM PLANT NURSERY WORKER): Home regimen Januvia, tresiba 10 and Victoza. Reviewed PCP records noted hypoglycemia last hospital admit with basal insulins continued Will continue januvia and hold tresiba and victoza SSI Family history of ischemic h eart disease and other diseases of the circulatory system 11/27/2019 Critical limb ischemia of right lower extremity 10/14/2019 Overview (10/14/2019): Added automatically from request for surgery [id number] Assessment & Plan (08/28/2024 12:59 PM PLANT NURSERY WORKER): S/p uncomplicated balloon angioplasty of the AT, [...] (10/14/2019): Added automatically from request for surgery [id number] Presence of Watchman left atrial appendage closu re device 08/29/2018 Atrial fibrillation, permanent 06/13/2018 Overview (06/13/2018): Added automatically from request for surgery [id number] Assessment & Plan (11/22/2024 1:43 PM CDT): Rate controlled and s/p Watchman due to prior GIB. - continue home coreg as below. Assessment & Plan (11/21/2024 3:39 PM CDT): Rate controlled and s/p Watchman due to prior GIB. - continue home coreg as below Assessment & Plan (08/28/2024 1:03 PM PLANT NURSERY WORKER): Follows with [facility] cardiology. Rate controlled and s/p Watchman due to prior severe GIB Recently stopped coreg due to bradycardia ASA and plavix to start per IR recs post revascularization Assessment & Plan (07/24/2018 9:29 AM PLANT NURSERY WORKER): Continue coreg. S/p Watchmann DAVIDA occluder implant for future deescalate anticoagulation. Continue apixiban for now as per EP. Post procedure CXR. 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 PAD (peripheral artery disease) 03/15/2018 Overview (03/15/2018): Added automatically from request for surgery [id number] Assessment & Plan (11/22/2024 1:43 PM CDT): Angiogram with occlusion of the AT, PT, and peroneal s/p successful revascularization. - overnight monitoring per IR. Start plavix and asa. Discussed importance of compliance, patient / daughter understand, will send to pharmacy on discharge. - discussed with IR, clear for discharge from their perspective. Assessment & Plan (11/21/2024 3:39 PM CDT): Angiogram with occlusion of the AT, PT, and peroneal s/p successful revascularization. - overnight monitoring per IR. Start plavix and asa. Discussed importance of compliance Non-healing wound of lower extremity 03/15/2018 Overview (03/15/2018): Added automatically from request for surgery [id number] Ischemia of foot 03/15/2018 Overview (03/15/2018): Added automatically from request for surgery [id number] Noncompliance 02/24/2018 Essential hypertension 11/10/2017 Assessment & Plan (11/22/2024 1:43 PM CDT): On lisinopril and coreg at home, holding today for lower BP. Resume as able. Assessment & Plan (11/21/2024 3:03 PM CDT): Continue home lisinopril and coreg Assessment & Plan (07/24/2018 9:27 AM PLANT NURSERY WORKER): Continue home meds and dialysis. Hyperlipidemia associated with type 2 diabetes m ellitus 11/10/2017 ESRD (end stage renal disease) on dialysis 11/10 Assessment & Plan (11/22/2024 1:43 PM CDT): Patient on HD MWF - Received Dialysis today on 11/22. Resume outpatient schedule. Assessment & Plan (11/21/2024 3:03 PM CDT): Patient on HD MWF - nephrology consult for dialysis today Assessment & Plan (08/29/2024 4:04 PM PLANT NURSERY WORKER): Routine M/W/F r brachial fistula (has required multiple dilations last at [facility] 07/2024 Feeling well post procedure denies dyspnea. Renal consulted for HD prior to discharge Assessment & Plan (07/24/2018 9:26 AM PLANT NURSERY WORKER): HD as per renal consult. 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 Reports blood sugars well controlled at home. - holding home regimen. Accu check qid and SSI ordered. Assessment & Plan (11/21/2024 3:03 PM CDT): Home regimen: Januvia, tresiba, and Victoza. Reports blood sugars well controlled at home. - holding home regimen. Accu check qid and SSI ordered Resolved Problems Problem Noted Date Diagnosed Date Resolved Date Coronary artery disease invo lving alutiiq coronary artery of alutiiq heart without angina pectoris 03/07/2021 03/07/2021 Preoperative cardiovascular examination 03/07/2021 09/29/2022 Hypoxia 11/27/2019 04/03/2023 Toe ulcer, left, with unspecified severity 09/16/2018 03/07/2021 Overview (09/16/2018): Added automatically from request for surgery [id number] Cough 11/10/2017 03/07/2021 Lumbago 06/04/2017 03/07/2021 Pain of lower extremity 06/04/201703/10 Chronic anticoagulation 08/22/2016 06/0 10/2018 Overview (10/12/2016): Chronic anticoagulation Stage 4 chronic kidney disease 04/21/2014 04/03/2023 Pain in joint 03/04/2014 04/03/2023 Paroxysmal atrial fibrillation 05/06/2024 ESRD (end stage renal disease) ([facility]) 03/07/2021 Pre-transplant evaluation fo r kidney transplant 04/03/2023 Encounters Date Type Department Care Team Description 11/21/2024 12:00 PM CDT - 11/22/2024 4:55 PM CDT Hospital Encounter [address] [phone] Shahnaz Heredia MD Guevara, Carlos Javier, MD Pain and swelling of right lower extremity (Primary Dx); Non-healing wound of right lower extremity; Pain and swelling of lower extremity, right; PAD (peripheral artery disease) Discharge Disposition: Discharge to home or self care 11/21/2024 6:00 AM CDT Office Visit [address] 1st [place] [address] PAD (peripheral artery disease) 11/21/2024 Telephone Radiology [address] [place] [address] Hollie Martinez PA 11/19/2024 Telephone [facility] Scheduling [address] [place] [address] Cynthia Blankenship MD Scheduling Appointments 11/19/2024 Telephone [facility] Radiology [address] [place] [phone] Yaritza Golden RN 11/18/2024 Telephone [facility] Radiology [address] [place] [address] Tomy Reynolds, ABENA 11/17/2024 Orders Only [facility] Radiology [address] [place] [phone] Alena Fontenot, ABENA PAD (peripheral artery disease) (Primary Dx) 11/17/2024 Telephone [facility] Radiology [address] [place] [phone] Alena Fontenot, RN 11/11/2024 Telephone [facility] Radiology [address] [place] [phone] Alena Fontenot, RN 11/07/2024 Telephone [facility] Radiology [address] [place] [address] Alena Fontenot, RN 11/05/2024 Telephone [facility] Radiology [address] [place] [address] Alena Fontenot, RN 11/04/2024 Telephone [facility] Radiology [address] [place] [address] Alena Fontenot, RN 10/30/2024 1:14 PM CDT - 10/30/2024 11:59 PM CDT Hospital Encounter [facility] [address] [place] [phone] Atherosclerosis of alutiiq arteries of extremities with intermittent claudication, bilateral legs Discharge Disposition: Discharge to home or self care 10/30/2024 1:00 PM CDT - 10/30/2024 11:59 PM CDT Hospital Encounter [facility] [address] [place] [address] Atherosclerosis of alutiiq arteries of extremities with intermittent claudication, bilateral legs Discharge Disposition: Discharge to home or self care 10/24/2024 Orders Only [facility] Radiology [address] [place] [address] Alena Fontenot, RN Atherosclerosis of alutiiq arteries of extremities with intermittent claudication, bilateral legs (Primary Dx) 08/28/2024 12:03 PM PLANT NURSERY WORKER - 08/29/2024 4:56 PM PLANT NURSERY WORKER Hospital Encounter [address] [phone] Paulo Harper MD Patel, Kieran, MD Guevara, Carlos Javier, MD ARCADIO (obstructive sleep apnea)- concern for (Primary Dx); Non-healing wound of right lower extremity; Ischemia of foot; Critical limb ischemia of right lower extremity (HCC) Discharge Disposition: Discharge to SNF from Last 3 Months Immunizations Immunization Administration [...] (peripheral artery disease) Critical ischemia of foot ([facility]) Presence of Watchman left at rial appendage closure device Osteoporosis Spondylolisthesis of lumbar region Non-healing wound of lower extremity Neurogenic claudication due to lumbar spinal stenosis Atrial fibrillation (HCC) Paroxysmal A-fib (HCC) ARCADIO (obstructive sleep apnea)- concern for 2024 Family History Medical History Relation Name Comments Heart attack Brother Coronary artery disease Father Donald nary artery disease; Heart attack Father Heart disease Father Family history of cardiac disorder - (Added by TW Conv) Cancer Mother Family history of malignant neoplasm - (Added by TW Conv) Coronary artery disease Mother Donald nary artery disease; Diabetes Mother Family history of diabetes mellitus - (Added by TW Conv) Anesthesia problems Neg Hx Relation Name Status Comments Brother of UT age 48 Father of UT age 47 Mother Social History Tobacco Use [...] often do you attend chur ch or baptism services? 1 to 4 times per year 09/04/2019 Do you belong to any clubs o r organizations such as jain groups, unions, fraternal or athletic groups, or [...] making you feel afraid or unsafe? Denies 11/21/2024 Comments No Sex and Gender Information Value Date Recorded Sex Assigned at Not on file Legal Sex Female 12:39 PM PLANT NURSERY WORKER Gender Identity Not on file Sexual Orientation Not on file Obstetrics History Last Filed Vital Signs Vital Sign Reading Time Taken Comments Blood Pressure 99/40 11/22/2024 4:20 PM CDT Pulse 91 11/22/2024 4:20 PM CDT Temperature 36.6 C (97.9 F) 11/22/2024 11:50 AM CDT Respiratory Rate 20 11/22/2024 11:50 AM CDT Oxygen Saturation 78% 11/22/2024 4:20 PM CDT Inhaled Oxygen Concentration - - Weight 54.5 kg (120 lb 2.4 oz) 11/22/2024 6:15 A M CDT Height 144.8 cm (4' 9 ) 11/21/2024 5:25 PM CDT Body Mass Index 26 11/21/2024 5:25 PM CDT Plan of Treatment Scheduled Procedures Name Priority [...] 03/22/2018, 04/08/2017, Additional history exists Lipid Panel 11/21/2025 11/21/2024, 08/10, 09/26/2022, Additional history exists Fall Risk Assessment 11/22/2025 11/22/2024, 09/17/19 19 eGFR 11/22/2025 11/22/2024, 11/06, 11/21/2024, Additional history exists Hepatitis B Screening Completed 04/26/2018 Pneumococcal vaccine 65+ Completed 05/08/2019, 08/2013 Hepatitis C Screening Completed 08/19/2020 , 09/04/2019, 05/08/2019 Medical Devices Implanted Type Area General Manager Land Department Device Identifier Shelf Expiration Date Model / Serial / Lot Device Clsr 27mm Davida Means - [id number] - [id number] Implanted:Qty : 1 on 07/23/2018 by Mike Mccloud MD PhD at [facility] Other - see comments Left: Heart [employer] Breanna 12/13/2020 27MM-DAVIDA CLOSURE DEVICE / [id number] / [id number] Description:Left atrial appe ndage closure device Watchman Daig Breanna[employer] [id number] Angio-Seal Vip Bondek-Plus 6fr .035in 70cm Hemostatic Latex Free - [id number] Implanted:Qty : 1 on 03/20/2018 by Abdifatah Villa MD at [facility] Daig Breanna[employer] 12/06/2018 [id number] / / [id number] Device Davida Watchman Procedure - [id number] Implanted:Qty : 1 on 07/23/2018 by Mike Mccloud MD PhD at [facility] [employer] Breanna [id number] 1 - 3 PC / / Description:1 Device Daig Breanna[employer] [id number] Angio-Seal Vip Bondek-Plus 6fr .035in 70cm Hemostatic Latex Free - [id number] Implanted:Qty : 1 on 09/26/2018 by Abdifatah Villa MD at [facility] Daig Breanna[employer] 06/07/2019 [id number] / / [id number] Daig Breanna [id number] Device Closure Angio-Seal Vip Bondek-Plus Polyglyd L70 Cm Od6 Fr Odsec.035 In Vascular - [id number] Implanted:Qty : 1 on 10/16/2019 by Abdifatah Villa MD at [facility] Daig Breanna[employer] [id number] / / [employer] Device 6fr Closure Celt Acd Vascular Sterile Latex Free Disposable [facility]av[facility] - [id number] Implanted:Qty : 1 on 08/28/2024 at [facility] [employer] 01/01/2027 KCLT-06 / / [id number] TerDatacastle Angio-Seal Vip 6fr Closere Device [id number] - [id number] Implanted:Qty : 1 on 11/21/2024 at [facility] [employer] Breanna 03/26/2025 [id number] / / [id number] Procedures Procedure Name Priority Date/Time Associated Diagnosis Comments POCT GLUCOSE DEVICE Routine 11/22/2024 1 2:10 PM CDT POCT GLUCOSE DEVICE Routine 11/22/2024 8 :28 AM CDT EGFR STAT 11/22/2024 7:56 AM CDT CBC WITHOUT DIFFERENTIAL STAT 11/22/2024 7:56 AM CDT BASIC METABOLIC PANEL STAT 11/22/2024 7:56 AM CDT HEPATITIS B SURFACE ANTIGEN STAT 11/22/2024 7:56 AM CDT EGFR Routine 11/21/2024 10:36 PM CDT PHOSPHORUS Routine 11/21/2024 10:36 PM CDT BASIC METABOLIC PANEL Routine 11/21/2024 10:36 PM CDT CBC WITHOUT DIFFERENTIAL Routine 11/21/2024 10:36 PM CDT POCT GLUCOSE DEVICE Routine 11/21/2024 8 :23 PM CDT POCT GLUCOSE DEVICE Routine 11/21/2024 5 :24 PM CDT HEMODIALYSIS Routine 11/21/2024 2:33 PM CDT ANGIOGRAM LOWER EXTREMITY RIGHT Schedule Routine, Read Routine (OP Routine) 11/21/2024 11:02 AM CDT Non-healing wound of right lower extremity Pain and swelling of lower extremity, right PAD (peripheral artery disease) POCT ACTIVATED CLOTTING TIME, LOW RANGE Routine 11/21/2024 10:36 AM CDT POCT ACTIVATED CLOTTING TIME, LOW RANGE Routine 11/21/2024 9:54 AM CDT POCT ACTIVATED CLOTTING TIME, LOW RANGE Routine 11/21/2024 9:20 AM CDT EGFR Routine 11/21/2024 6:31 AM CDT PAD (peripheral artery disease) DIFFERENTIAL AUTO Routine 11/21/2024 6:3 1 AM CDT PAD (peripheral artery disease) LIPID PANEL Routine 11/21/2024 6:31 AM CDT PAD (peripheral artery disease) BASIC METABOLIC PANEL Routine 11/21/2024 6:31 AM CDT PAD (peripheral artery disease) CBC WITH AUTO DIFFERENTIAL Routine 11/21/2024 6:31 AM CDT PAD (peripheral artery disease) US ARTERIAL DOPPLER LOWER EXTREMITY BILATERAL Schedule Routine, Read Routine (OP Routine) 10/30/2024 3:13 PM CDT Atherosclerosis of alutiiq arteries of extremities with intermittent claudication, bilateral legs VL US ARTERIAL DUPLEX LOWER EXTREMITY BILATERAL Schedule Routine, Read Routine (OP Routine) 10/30/2024 2:19 PM CDT Atherosclerosis of alutiiq arteries of extremities with intermittent claudication, bilateral legs POCT GLUCOSE DEVICE Routine 08/29/2024 1 1:37 AM PLANT NURSERY WORKER HEPATITIS B SURFACE ANTIGEN STAT 08/29/2024 8:36 AM PLANT NURSERY WORKER POCT GLUCOSE DEVICE Routine 08/29/2024 8 :02 AM PLANT NURSERY WORKER HEPATITIS C ANTIBODY Routine 08/19/2020 12:07 PM PLANT NURSERY WORKER ESRD (end stage renal disease) (HCC) HEMOGLOBIN A1C Routine 09/04/2019 12:14 AM PLANT NURSERY WORKER from Last 3 Months or Most Recently Relevant to Health Maintenance Results * (ABNORMAL) POCT glucose (11/22/2024 12:10 PM CDT) Glucose, POC 231(H) 70 - 199 mg/dL Blood 11/22/2024 12:1 0 PM CDT 11/22/2024 12:10 PM CDT Shahnaz Heredia MD LAB POCT ORDERABLES - DEV ICE Final Result GUILLERMINA [facility] [place] [address] * (ABNORMAL) POCT glucose (11/22/2024 8:28 AM CDT) Glucose, POC 230(H) 70 - 199 mg/dL Blood 11/22/2024 8:28 AM CDT 11/22/2024 8:28 AM CDT Shahnaz Heredia MD LAB POCT ORDERABLES - DEV ICE Final Result Performing Organization Address [facility] de Phone Number [facility] [place] [address] * (ABNORMAL) eGFR (11/22/2024 7:56 AM CDT) eGFR 7(L) >=60 mL/min/1. 73 m2 Comment: Interpretive Data [...] interpretive data was last reviewed 2021. Blood 11/22/2024 7:56 AM CDT 11/22/2024 8:37 AM CDT us Tomy GUADARRAMA LAB BLOOD ORDERABLES Final R esult [facility] [place] [address] * Hepatitis B Surface Antigen Blood (11/22/2024 7:56 AM CDT) [facility] HepBsAg Nonreactive Nonreactive Blood 11/22/2024 7:56 AM CDT 11/22/2024 8:36 AM CDT Nina Hopson MD LAB MICROB IOLOGY - GENERAL ORDERABLES Edited Result - Final Performing Organization Address City/[facility] Co de Phone Number [facility] [place] [address] * (ABNORMAL) CBC without differential (11/22/2024 7:56 AM CDT) [facility] WBC 7.32 3.80 - 9.90 K/cumm Hgb 8.6(L) 11.9 - 15.5 g/dL [facility] Hct 28.8(L) 35.6 - 45.5 % [facility] Plt 111(L) 150 - 400 K/cumm [facility] MPV 12.6(H) 9.1 - 12.3 fL [facility] RBC 2.91(L) 3.90 - 5.20 M/cumm [facility] MCV 99.0(H) 81.3 - 96.4 fL [facility] MCH 29.6 27.1 - 33.3 pg [facility] MCHC 29.9(L) 32.3 - 35.7 g/dL [facility] RDW CV 17.2(H) 11.1 - 14.9 % [facility] RDW SD 60.7(H) 35.7 - 48.1 fL [facility] NRBC abs 0.00 0.00 - 0.01 K/cumm [facility] Blood 11/22/2024 7:56 AM CDT 11/22/2024 8:37 AM CDT Tomy GUADARRAMA LAB BLOOD ORDERABLES Final R esult [facility] [place] [address] * (ABNORMAL) Basic metabolic panel (11/22/2024 7:56 AM CDT) Sodium 131(L) 135 - 145 mmol/L Potassium, pl 5.5(H) 3.3 - 4.9 mmol/L [facility] Chloride 92(L) 97 - 110 mmol/L [facility] CO2 29 22 - 32 mmol/L [facility] Anion gap 10 2 - 15 mmol/L [facility] BUN 58(H) 6 - 25 mg/dL [facility] Creatinine 6.13(H) 0.60 - 1.10 mg/dL [facility] Glucose 257(H) 70 - 199 mg/dL [facility] Comment: Interpretive Data Fasting glucose >/= 126 [...] interpretive data was last revised 2022. Calcium 8.8 8.5 - 10.3 mg/dL [facility] Blood 11/22/2024 7:56 AM CDT 11/22/2024 8:37 AM CDT Tomy GUADARRAMA LAB BLOOD ORDERABLES Final R esult Performing Organization Address City/[facility]/ZIP Co de Phone Number GUILLERMINA [facility] [facility] [place] [address] * (ABNORMAL) eGFR (11/21/2024 10:36 PM CDT) Pathologist [facility] eGFR 7(L) >=60 mL/min/1. 73 m2 Comment: Interpretive Data [...] interpretive data was last reviewed 2021. Blood 11/21/2024 10:3 6 PM CDT 11/21/2024 10:49 PM CDT us Christina Fermin NP LAB BLOOD ORDERABLES Final Result [facility] [place] [address] * (ABNORMAL) CBC without differential (11/21/2024 10:36 PM CDT) Pathologist [facility] WBC 8.51 3.80 - 9.90 K/cumm Hgb 8.9(L) 11.9 - 15.5 g/dL [facility] Hct 29.8(L) 35.6 - 45.5 % [facility] Plt 112(L) 150 - 400 K/cumm [facility] MPV 12.7(H) 9.1 - 12.3 fL [facility] RBC 3.01(L) 3.90 - 5.20 M/cumm [facility] MCV 99.0(H) 81.3 - 96.4 fL [facility] MCH 29.6 27.1 - 33.3 pg [facility] MCHC 29.9(L) 32.3 - 35.7 g/dL [facility] RDW CV 17.2(H) 11.1 - 14.9 % [facility] RDW SD 60.3(H) 35.7 - 48.1 fL [facility] NRBC abs 0.02(H) 0.00 - 0.01 K/cumm [facility] Blood 11/21/2024 10:3 6 PM CDT 11/21/2024 10:49 PM CDT us Christina Fermin NP LAB BLOOD ORDERABLES Final Result Performing Organization Address City/[facility]/ZIP Co de Phone Number [facility] [place] [address] * (ABNORMAL) Phosphorus (11/21/2024 10:36 PM CDT) Pathologist [facility] Phosphorus, pl 6.5(H) 2.3 - 4.5 mg/dL Blood 11/21/2024 10:3 6 PM CDT 11/21/2024 10:49 PM CDT us Robles Alicea MD LAB BLOOD ORDERABLES Gertrude l Result [facility] [place] [address] * (ABNORMAL) Basic metabolic panel (11/21/2024 10:36 PM CDT) Pathologist [facility] Sodium 135 135 - 145 mmol/L Potassium, pl 5.5(H) 3.3 - 4.9 mmol/L [facility] Chloride 93(L) 97 - 110 mmol/L [facility] CO2 29 22 - 32 mmol/L [facility] Anion gap 13 2 - 15 mmol/L [facility] BUN 57(H) 6 - 25 mg/dL [facility] Creatinine 5.81(H) 0.60 - 1.10 mg/dL [facility] Glucose 257(H) 70 - 199 mg/dL [facility] Comment: Interpretive Data Fasting glucose >/= 126 [...] interpretive data was last revised 2022. Calcium 9.6 8.5 - 10.3 mg/dL [facility] Blood 11/21/2024 10:3 6 PM CDT 11/21/2024 10:49 PM CDT us Christina Fermin NP LAB BLOOD ORDERABLES Final Result [facility] [place] [address] * POCT glucose (11/21/2024 8:23 PM CDT) Glucose, POC 119 70 - 199 mg/dL Blood 11/21/2024 8:23 PM CDT 11/21/2024 8:23 PM CDT us Shahnaz Heredia MD LAB POCT ORDERABLES - DEV ICE Final Result [facility] [place] [address] * POCT glucose (11/21/2024 5:24 PM CDT) Glucose, POC 188 70 - 199 mg/dL Blood 11/21/2024 5:24 PM CDT 11/21/2024 5:24 PM CDT us Shahnaz Heredia MD LAB POCT ORDERABLES - DEV ICE Final Result [facility] [place] [address] * IR Angiogram Lower Extremity Right (11/21/2024 11:02 AM CDT) Anatomical Region Laterality Modality Extremity Right X-Ray Angiograph y 11/21/2024 1:39 PM CDT Impressions 11/21/2024 2:08 PM CDT Successful revascularization of the occluded anterior tibial, posterior tibial, and peroneal arteries as well as the lateral plantar and dorsalis pedis with balloon angioplasty. PLAN: The patient will be loaded with 600 mg Plavix and begin a regimen of Plavix 75mg and ASA 81 daily. The necessity of compliance with patient's dual antiplatelet therapy was discussed in detail with the patient and her daughter. Patient will be admitted overnight for observation and inpatient dialysis. Dictated by: Juan Escobedo M.D. The radiology attending physician has personally reviewed this study, and had reviewed and/or edited this written report and agrees with it. Electronically signed by: Anthony Gorman M.D. Narrative 11/21/2024 2:08 PM CDT EXAMINATION: RIGHT LOWER EXTREMITY ANGIOGRAM WITH REVASCULARIZATION PROCEDURES: 1. Ultrasound-guided access right superficial femoral artery. 2. Right lower extremity angiogram in stations down to the foot 3. Plain balloon angioplasty of the anterior tibial, posterior tibial, and peroneal arteries 4. Plain balloon angioplasty of the lateral plantar and dorsalis pedis arteries 5. Post intervention angiography 6. Angio-Seal closure device deployment HISTORY: 79-year-old female with history of peripheral arterial disease status post multiple toe amputations, end-stage renal disease on dialysis, atrial fibrillation status post watchman device presenting with right heel wound after recent hospitalization. Patient reports she has not been taking her aspirin or Plavix. ATTENDING PRESENCE: Dr. Anthony Gorman, the attending radiologist was present from the beginning to the end of the procedure. SEDATION: Procedural sedation was administered under the attending physician's direction and continuous monitoring by a trained nurse specialist who was independent from those actually performing the procedure. Total monitored sedation time was 120 minutes. TECHNIQUE: The risks, benefits and alternatives were discussed and informed consent was obtained. Prior to beginning the procedure, [place] Protocol was performed to confirm the patient's [...] After sterile prep, the skin over the right groin was infiltrated with 1% lidocaine. The right superficial femoral artery was punctured under real time ultrasound guidance. An image of the patent vessel was recorded. The 5-Gabonese catheter was placed in the superficial femoral artery and the right lower extremity angiogram was performed in stations to the foot A 45 cm 6-Gabonese sheath was advanced to the superficial femoral artery. Using a 1.5 mm Lyudmila balloon a 0.014 Glidewire advantage was advanced down the posterior tibial artery. Angioplasty was performed at multiple stations along the posterior tibial artery. The Glidewire advantage was exchanged for a command ES wire and was advanced into the lateral plantar artery. Angioplasty of the lateral plantar was performed in multiple stations with the 1.5 mm balloon. The lateral plantar artery was subsequently angioplastied with a 2.0 mm and a 2.5 mm balloon. Multiple attempts were made to cross the pedal loop from the posterior tibial access with both the command ES and Glidewire advantage wires, however these were ultimately unsuccessful. The posterior tibial artery was angioplastied multiple stations using a 3 mm balloon. A 2nd 014 Glidewire advantage was advanced down the peroneal artery. Angioplasty of the peroneal artery was performed in multiple stations with a 2.0 mm Lyudmila balloon. The 0.014 Glidewire advantage was removed from the posterior tibial artery and was placed down the anterior tibial artery into the dorsalis pedis. Angioplasty of the dorsalis pedis and the distal anterior tibial artery was performed with a 2.5 mm balloon and the length of the anterior tibial artery was angioplastied using a 3.0 mm Lyudmila balloon. A completion angiogram was performed. Angioseal device was deployed under ultrasound guidance to accomplish successful closure of the arteriotomy. A sterile dressing was applied. ESTIMATED BLOOD LOSS: minimal. CONDITION: Stable DISCHARGED TO: Recovery and then inpatient unit FINDINGS: Ultrasound evaluation of the right superficial femoral artery demonstrates a patent vessel. Initial angiography demonstrates appropriate positioning of the arterial puncture in the proximal superficial femoral artery. There is no significant stenosis in the superficial femoral or popliteal arteries. There is occlusion of the proximal anterior tibial artery, proximal peroneal artery, and proximal posterior tibial artery. There is a minimal flow to the foot via collaterals. After intervention there is significantly improved flow through the revascularized anterior and posterior tibial arteries with two-vessel runoff at the level of the ankle. Significantly improved flow through the dorsalis pedis and lateral plantar arteries with a persistently incomplete plantar arch. There is hyperemia at the site of patient's heel wound with numerous cutaneous branches from the lateral plantar and posterior tibial artery going to this region. There is improved flow through the proximal to mid peroneal artery. Procedure Note Anthony Gorman MD - 11/21/2024 EXAMINATION: RIGHT LOWER EXTREMITY ANGIOGRAM WITH REVASCULARIZATION PROCEDURES: 1. Ultrasound-guided access right superficial femoral artery. 2. Right lower extremity angiogram in stations down to the foot 3. Plain balloon angioplasty of the anterior tibial, posterior tibial, and peroneal arteries 4. Plain balloon angioplasty of the lateral plantar and dorsalis pedis arteries 5. Post intervention angiography 6. Angio-Seal closure device deployment HISTORY: 79-year-old female with history of peripheral arterial disease status post multiple toe amputations, end-stage renal disease on dialysis, atrial fibrillation status post watchman device presenting with right heel wound after recent hospitalization. Patient reports she has not been taking her aspirin or Plavix. ATTENDING PRESENCE: Dr. Anthony Gorman, the attending radiologist was present from the beginning to the end of the procedure. SEDATION: Procedural sedation was administered under the attending physician's direction and continuous monitoring by a trained nurse specialist who was independent from those actually performing the procedure. Total monitored sedation time was 120 minutes. TECHNIQUE: The risks, benefits and alternatives were discussed and informed consent was obtained. Prior to beginning the procedure, [place] Protocol was performed to confirm the patient's [...] After sterile prep, the skin over the right groin was infiltrated with 1% lidocaine. The right superficial femoral artery was punctured under real time ultrasound guidance. An image of the patent vessel was recorded. The 5-Gabonese catheter was placed in the superficial femoral artery and the right lower extremity angiogram was performed in stations to the foot A 45 cm 6-Gabonese sheath was advanced to the superficial femoral artery. Using a 1.5 mm Lyudmila balloon a 0.014 Glidewire advantage was advanced down the posterior tibial artery. Angioplasty was performed at multiple stations along the posterior tibial artery. The Glidewire advantage was exchanged for a command ES wire and was advanced into the lateral plantar artery. Angioplasty of the lateral plantar was performed in multiple stations with the 1.5 mm balloon. The lateral plantar artery was subsequently angioplastied with a 2.0 mm and a 2.5 mm balloon. Multiple attempts were made to cross the pedal loop from the posterior tibial access with both the command ES and Glidewire advantage wires, however these were ultimately unsuccessful. The posterior tibial artery was angioplastied multiple stations using a 3 mm balloon. A 2nd 014 Glidewire advantage was advanced down the peroneal artery. Angioplasty of the peroneal artery was performed in multiple stations with a 2.0 mm Lyudmila balloon. The 0.014 Glidewire advantage was removed from the posterior tibial artery and was placed down the anterior tibial artery into the dorsalis pedis. Angioplasty of the dorsalis pedis and the distal anterior tibial artery was performed with a 2.5 mm balloon and the length of the anterior tibial artery was angioplastied using a 3.0 mm Lyudmila balloon. A completion angiogram was performed. Angioseal device was deployed under ultrasound guidance to accomplish successful closure of the arteriotomy. A sterile dressing was applied. ESTIMATED BLOOD LOSS: minimal. CONDITION: Stable DISCHARGED TO: Recovery and then inpatient unit FINDINGS: Ultrasound evaluation of the right superficial femoral artery demonstrates a patent vessel. Initial angiography demonstrates appropriate positioning of the arterial puncture in the proximal superficial femoral artery. There is no significant stenosis in the superficial femoral or popliteal arteries. There is occlusion of the proximal anterior tibial artery, proximal peroneal artery, and proximal posterior tibial artery. There is a minimal flow to the foot via collaterals. After intervention there is significantly improved flow through the revascularized anterior and posterior tibial arteries with two-vessel runoff at the level of the ankle. Significantly improved flow through the dorsalis pedis and lateral plantar arteries with a persistently incomplete plantar arch. There is hyperemia at the site of patient's heel wound with numerous cutaneous branches from the lateral plantar and posterior tibial artery going to this region. There is improved flow through the proximal to mid peroneal artery. IMPRESSION: Successful revascularization of the occluded anterior tibial, posterior tibial, and peroneal arteries as well as the lateral plantar and dorsalis pedis with balloon angioplasty. PLAN: The patient will be loaded with 600 mg Plavix and begin a regimen of Plavix 75mg and ASA 81 daily. The necessity of compliance with patient's dual antiplatelet therapy was discussed in detail with the patient and her daughter. Patient will be admitted overnight for observation and inpatient dialysis. Dictated by: Juan Escobedo M.D. The radiology attending physician has personally reviewed this study, and had reviewed and/or edited this written report and agrees with it. Electronically signed by: Anthony Gorman M.D. Anthony Gorman MD IMG IR PROCEDURES Final Result * (ABNORMAL) POCT Activated clotting time, low range (11/21/2024 10:36 AM CDT) ACT 318(H) 123 - 168 sec POC Performer [id number] [facility] POC Device Number [id number] [facility] Blood 11/21/2024 10:3 6 AM CDT 11/21/2024 10:36 AM CDT Shahnaz Heredia MD LAB POCT ORDERABLES - DEV ICE Final Result [facility] [place] [address] * (ABNORMAL) POCT Activated clotting time, low range (11/21/2024 9:54 AM CDT) Pathologist [facility] ACT 331(H) 123 - 168 sec POC Performer [id number] [facility] POC Device Number [id number] [facility] Blood 11/21/2024 9:54 AM CDT 11/21/2024 9:54 AM CDT Shahnaz Heredia MD LAB POCT ORDERABLES - DEV ICE Final Result [facility] [place] [address] * (ABNORMAL) POCT Activated clotting time, low range (11/21/2024 9:20 AM CDT) [facility] ACT 360(H) 123 - 168 sec POC Performer [id number] [facility] POC Device Number [id number] [facility] Blood 11/21/2024 9:20 AM CDT 11/21/2024 9:20 AM CDT Shahnaz Heredia MD LAB POCT ORDERABLES - DEV ICE Final Result [facility] [place] [address] * (ABNORMAL) eGFR (11/21/2024 6:31 AM CDT) [facility] eGFR 8(L) >=60 mL/min/1. 73 m2 Comment: Interpretive Data [...] interpretive data was last reviewed 2021. Blood 11/21/2024 6:31 AM CDT 11/21/2024 6:47 AM CDT us Anthony Gorman MD LAB BLOOD ORDERABLES Fi nal Result [facility] [place] [address] * (ABNORMAL) Differential, auto (11/21/2024 6:31 AM CDT) Pathologist [facility] Neutrophil abs 5.81 1.50 - 6.50 K/cumm Imm gran abs 0.03 0.00 - 0.10 K/cumm [facility] Lymphocyte abs 1.28 0.80 - 3.30 K/cumm [facility] Monocyte abs 0.89(H) 0.20 - 0.80 K/cumm [facility] Eosinophil abs 0.05 0.00 - 0.50 K/cumm [facility] Basophil abs 0.03 0.00 - 0.10 K/cumm [facility] Neutrophil pct 71.8 % [facility] Comment: Interpretive Data Percent cell count reference ranges are not reported, since discordance with absolute values may lead to misinterpretation of CBC data. Current Interpretive Data was last revised on 2017. Imm gran pct 0.4 % [facility] Comment: Interpretive Data Percent cell count reference ranges are not reported, since discordance with absolute values may lead to misinterpretation of CBC data. Current Interpretive Data was last revised on 2017. Lymphocyte pct 15.8 % [facility] Comment: Interpretive Data Percent cell count reference ranges are not reported, since discordance with absolute values may lead to misinterpretation of CBC data. Current Interpretive Data was last revised on 2017. Monocyte pct 11.0 % [facility] Comment: Interpretive Data Percent cell count reference ranges are not reported, since discordance with absolute values may lead to misinterpretation of CBC data. Current Interpretive Data was last revised on 2017. Eosinophil pct 0.6 % [facility] Comment: Interpretive Data Percent cell count reference ranges are not reported, since discordance with absolute values may lead to misinterpretation of CBC data. Current Interpretive Data was last revised on 2017. Basophil pct 0.4 % [facility] Comment: Interpretive Data Percent cell count reference ranges are not reported, since discordance with absolute values may lead to misinterpretation of CBC data. Current Interpretive Data was last revised on 2017. Blood 11/21/2024 6:31 AM CDT 11/21/2024 6:47 AM CDT us Anthony Gorman MD LAB BLOOD ORDERABLES Fi nal Result [facility] [place] [address] * (ABNORMAL) CBC with auto differential (11/21/2024 6:31 AM CDT) WBC 8.09 3.80 - 9.90 K/cumm Hgb 9.9(L) 11.9 - 15.5 g/dL [facility] Hct 32.3(L) 35.6 - 45.5 % [facility] Plt 134(L) 150 - 400 K/cumm [facility] MPV 12.6(H) 9.1 - 12.3 fL [facility] RBC 3.31(L) 3.90 - 5.20 M/cumm [facility] MCV 97.6(H) 81.3 - 96.4 fL [facility] MCH 29.9 27.1 - 33.3 pg [facility] MCHC 30.7(L) 32.3 - 35.7 g/dL [facility] RDW CV 17.2(H) 11.1 - 14.9 % [facility] RDW SD 60.4(H) 35.7 - 48.1 fL [facility] NRBC abs 0.02(H) 0.00 - 0.01 K/cumm [facility] Blood 11/21/2024 6:31 AM CDT 11/21/2024 6:47 AM CDT us Anthony Gorman MD LAB BLOOD ORDERABLES Fi nal Result [facility] [place] [address] * (ABNORMAL) Lipid panel (11/21/2024 6:31 AM CDT) Cholesterol 99 30 - 199 mg/dL Comment: Interpretive Data [...] Data was last revised on 2018. Triglycerides 90 <=149 mg/dL [facility] Comment: Interpretive Data Ages < or = [...] Data was last revised on 2018. HDL 35(L) >=40 mg/dL [facility] Comment: Interpretive Data Ages < or = [...] was last revised on 2018. LDL, calculated 46 <=129 mg/dL [facility] Comment: Interpretive Data Ages < or = [...] was last revised on 2024. Non-HDL Cholesterol 64 mg/dL [facility] Comment: Interpretive Data Ages < or = [...] was last revised on 2018. Chol/HDL ratio 3 [facility] Blood 11/21/2024 6:31 AM CDT 11/21/2024 6:47 AM CDT Anthony Gorman MD LAB BLOOD ORDERABLES Fi nal Result Performing Organization Address [facility]/ZIP Co de Phone Number [facility] [place] [address] * (ABNORMAL) Basic metabolic panel (11/21/2024 6:31 AM CDT) Pathologist [facility] Sodium 135 135 - 145 mmol/L Potassium, pl 4.9 3.3 - 4.9 mmol/L [facility] Chloride 92(L) 97 - 110 mmol/L [facility] CO2 32 22 - 32 mmol/L [facility] Anion gap 11 2 - 15 mmol/L [facility] BUN 50(H) 6 - 25 mg/dL [facility] Creatinine 5.26(H) 0.60 - 1.10 mg/dL [facility] Glucose 231(H) 70 - 199 mg/dL [facility] Comment: Interpretive Data Fasting glucose >/= 126 [...] interpretive data was last revised 2022. 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 Anthony Gorman MD [facility] PROCEDURES Final Result * POCT glucose (08/29/2024 11:37 AM PL[employer] WORK[employer]) [facility] Glucose, POC 110 70 - 199 mg/dL Blood 08/29/2024 11:3 7 AM PL[employer] N[employer] WORKER 08/29/2024 11:37 AM PLANT NURSERY WORKER Paulo Harper MD LAB POCT ORDERABLES - D EVICE Final Result Performing Organization Address [facility] Co de Phone Number [facility] [place] [address] * Hepatitis B Surface Antigen Blood (08/29/2024 8:36 AM PLANT NURSERY WORKER) HepBsAg Nonreactive Nonreactive Blood 08/29/2024 8:36 AM PLANT NURSERY WORKER 08/29/2024 8:48 AM PLANT NURSERY WORKER Leoncio zaragoza MD LAB MICROBIOLOGY - GENERAL ORDERABLES Final Result Performing Organization Address [facility] Co de Phone Number [facility] [place] [address] * POCT glucose (08/29/2024 8:02 AM PLANT NURSERY WORKER) Pathologist [facility] Glucose, POC 149 70 - 199 mg/dL Blood 08/29/2024 8:02 AM PLANT NURSERY WORKER 08/29/2024 8:02 AM PLANT NURSERY WORKER Paulo Harper MD LAB POCT ORDERABLES - D EVICE Final Result Performing Organization Address [facility] de Phone Number [facility] [place] [address] * Hepatitis C antibody (08/19/2020 12:07 PM PLANT NURSERY WORKER) [facility] Hep C Ab Nonreactive Nonreactive [facility] Comment:Antibodies to HCV no t detected. Does NOT exclude the possibility of recent exposure to HCV. Blood specimen (specimen) 08/19/2020 12:07 PM PLANT NURSERY WORKER 08/19/2020 12:15 PM PLANT NURSERY WORKER Humza Trevizo MD LAB MICROB IOLOGY - GENERAL ORDERABLES Edited Result - Final Performing Organization Address [facility] de Phone Number [facility] [place] [address] * (ABNORMAL) Hemoglobin A1c (09/04/2019 12:14 AM PLANT NURSERY WORKER) Hgb A1C 8.2(H) 4.0 - 5.6 % [facility] Estimated Average Glucose 189 mg/dL [facility] Comment: The ADA recommends reporting an estimated Average Glucose (eAG) with all Hemoglobin A1c results using the equation derived from a study of 507 normal and diabetic adults. Minority populations were underrepresented and children were not included. (Diabetes Care 31:0906-8260, 2008). The eAG is not equivalent to a fasting glucose. Blood specimen (specimen) 09/04/2019 12:14 AM PLANT NURSERY WORKER 09/04/2019 12:58 AM PLANT NURSERY WORKER Brandin Pena MD LAB BLOOD ORDERABLES Final Result Performing Organization Address [facility] de Phone Number [facility] [place] [address] from Last 3 Months or Most Recently Relevant to Health Maintenance Insurance [facility] MEDICARE ADVANTAGE [place] MEDICARE RESEARCH [facility] MEDICARE ADVANTAGE [place] [facility] MEDICARE ADVANTAGE [place] Advance Directives For more information, please contact: [phone] * Full Code (Latest Code Status on File) Date Activated Date Inactivated Comments 11/21/2024 7:27 AM 11/22/2024 8:58 PM * Full Code Date Activated Date Inactivated Comments 08/28/2024 6:35 AM 08/29/2024 9:01 PM * Full Code Date Activated Date Inactivated Comments 09/03/2019 11:07 PM 09/04/2019 6:57 PM * Full Code Date Activated Date Inactivated Comments 07/23/2018 10:39 PM 07/24/2018 7:45 PM Care Teams Nursing Informatics Clinical Analyst Relationship Specialty Start Date End Date David Coppola MD PCP - General Family Medicine 10/29/17 Jacob Suarez MD Referring Physician Nephrology 12/20/18 Ros Seay MD [facility] Cardiology 03/05/19 Abdifatah Villa MD [address] [facility] [address] [place] [address] Consulting Physician Cardiology 09/01/20 Issa Clements MD [address] [facility] [address] [place] [address] Referring Physician General Surgery 09/01/20
--- OUTSIDE RECORDS SUMMARY | 2024-11-26 18:03 | XMS_ITS | Referral Summary ---
Author Organization [facility] [address] Address [address] [place] [address] Care Team Providers Care Kindergartners Helper Name Role Phone David Coppola MD Primary Care Provider [phone] Jacob Suarez MD Unavailable Ros Seay MD Unavailable [phone] Abdifatah Villa MD Unavailable Issa Clements MD Unavailable [phone] Encounters Date Type Department Care Team Description 11/21/2024 12:00 PM CDT - 11/22/2024 4:55 PM CDT Hospital Encounter [address] [address] Shahnaz Heredia MD Guevara, Carlos Javier, MD Pain and swelling of right lower extremity (Primary Dx); Non-healing wound of right lower extremity; Pain and swelling of lower extremity, right; PAD (peripheral artery disease) Discharge Disposition: Discharge to home or self care 11/21/2024 Telephone Radiology [address] [place] [address] Hollie Martinez PA 11/21/2024 6:00 AM CDT Office Visit [facility] 1st [place] [address] PAD (peripheral artery disease) 11/19/2024 Telephone [facility] Scheduling [address] [place] [address] Cynthia Blankenship MD Scheduling Appointments 11/19/2024 Telephone [facility] Radiology [address] [place] [address] Yaritza Golden, ABENA 11/18/2024 Telephone [facility] Radiology [address] [place] [address] Tomy Reynolds, ABENA 11/17/2024 Orders Only [facility] Radiology [address] [place] [address] Alena Fontenot, ABENA PAD (peripheral artery disease) (Primary Dx) 11/17/2024 Telephone [facility] Radiology [address] [place] [address] Alena Fontenot, RN 11/11/2024 Telephone [facility] Radiology [address] [place] [address] Alena Fontenot, RN 11/07/2024 Telephone [facility] Radiology [address] [place] [address] Alena Fontenot, RN 11/05/2024 [facility] Radiology [address] [place] [address] Alena Fontenot, RN 11/04/2024 [facility] Radiology [address] [place] [address] Alena Fontenot, RN 10/30/2024 1:14 PM CDT - 10/30/2024 11:59 PM CDT Hospital Encounter [facility] Vascular Lab [address] [place] [address] Atherosclerosis of white [place] arteries of extremities with intermittent claudication, bilateral legs Discharge Disposition: Discharge to home or self care 10/30/2024 1:00 PM CDT - 10/30/2024 11:59 PM CDT Hospital Encounter [facility] Vascular Lab [address] [place] [address] Atherosclerosis of [place] arteries of extremities with intermittent claudication, bilateral legs Discharge Disposition: Discharge to home or self care 10/24/2024 Orders Only [facility] Radiology [address] [place] [address] Alena Fontenot RN Atherosclerosis of white earth arteries of extremities with intermittent claudication, bilateral legs (Primary Dx) 08/28/2024 12:03 PM AURIST - 08/29/2024 4:56 PM AURIST Hospital Encounter [facility] [address] [place] [address] Paulo Harper MD Patel, Kieran, MD Guevara, Anthony Rojas MD ARCADIO (obstructive sleep apnea)- concern for (Primary Dx); Non-healing wound of right lower extremity; Ischemia of foot; Critical limb ischemia of right lower extremity (HCC) Discharge Disposition: Discharge to SNF from Last 3 Months Allergies Active Allergy [...] (10 Units total) under the skin nightly 020 Active clotrimazole 1 % cream Apply topically 2 (two) times a day as needed Active traZODone (DESYREL) 50 mg tablet Take 2 tablets (100 mg total) by mouth nightly 022 Active Prolia 60 mg/mL syringe Q 6 months 022 Active atorvastatin (LIPITOR) 40 mg tabletIndications:PA D [...] hours as needed (severe pain) 5 tablet 025 Active aspirin 81 mg chewable tablet Take 1 tablet (81 mg total) by mouth daily 30 tablet 1 025 2025 Active clopidogreL (PLAVIX) 75 mg tablet Take 1 tablet (75 mg total) by mouth daily 30 tablet 1 025 2025 Active OneTouch Ultra Blue Test Strip strip USE STRIP TO CHECK GLUCOSE TWICE DAILY AND DIRECTED 020 2024 Discontinued NovoTwist 32 gauge x 1/5 needle USE 1 ONCE DAILY 020 2024 Discontinued cyanocobalamin (Vitamin B-12) 500 mcg [...] GIB. Patients daughter reports recent admission to [facility] due to concern for GIB. Patient followed up with her outpatient GI. Planning for EGD at the end of November - continue PPI. Assessment & Plan (11/21/2024 3:03 PM CDT): History of peptic ulcer with GIB. Patients daughter reports recent admission to [facility] due to concern for GIB. Patient followed up with her outpatient GI. Planning for EGD at the end of November - closely monitor for bleeding due to starting asa and Plavix as above - continue PPI Assessment & Plan (08/28/2024 1:08 PM AURIST): History of peptic ulcer with GIB Denies sx continue PPI Heart valve disease 04/06/2023 History of GI bleed 02/04/2023 Bradycardia 09/29/2022 Bleeding 09/29/2022 Idiopathic hypotension 09/13/2021 Complication of arteriovenous dialysis fistula 0 09/07/2020 Type 2 diabetes mellitus wit h diabetic peripheral angiopathy and gangrene, without long-term current use of insulin 08/21/2020 Assessment & Plan (08/28/2024 1:05 PM AURIST): Home regimen Januvia, tresiba 10 and Victoza. Reviewed PCP records noted hypoglycemia last hospital admit with basal insulins continued Will continue januvia and hold tresiba and victoza SSI Family history of ischemic h eart disease and other diseases of the circulatory system 11/27/2019 Critical limb ischemia of right lower extremity 10/14/2019 Overview (10/14/2019): Added automatically from request for surgery [id number] Assessment & Plan (08/28/2024 12:59 PM AURIST): S/p uncomplicated balloon angioplasty of the AT, [...] (10/14/2019): Added automatically from request for surgery [id number] Presence of Watchman left atrial appendage closu re device 08/29/2018 Atrial fibrillation, permanent 06/13/2018 Overview (06/13/2018): Added automatically from request for surgery [id number] Assessment & Plan (11/22/2024 1:43 PM CDT): Rate controlled and s/p Watchman due to prior GIB. - continue home coreg as below. Assessment & Plan (11/21/2024 3:39 PM CDT): Rate controlled and s/p Watchman due to prior GIB. - continue home coreg as below Assessment & Plan (08/28/2024 1:03 PM AURIST): Follows with [facility] [place]. Rate controlled and s/p Watchman due to prior severe GIB Recently stopped coreg due to bradycardia ASA and plavix to start per IR recs post revascularization Assessment & Plan (07/24/2018 9:29 AM AURIST): Continue coreg. S/p Watchmann DAVIDA occluder implant for future deescalate anticoagulation. Continue apixiban for now as per EP. Post procedure CXR. 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 PAD (peripheral artery disease) 03/15/2018 Overview (03/15/2018): Added automatically from request for surgery [id number] Assessment & Plan (11/22/2024 1:43 PM CDT): [...] (03/15/2018): Added automatically from request for surgery [id number] Ischemia of foot 03/15/2018 Overview (03/15/2018): Added automatically from request for surgery [id number] Noncompliance 02/24/2018 Essential hypertension 11/10/2017 Assessment & Plan (11/22/2024 1:43 PM CDT): On lisinopril and coreg at home, holding today for lower BP. Resume as able. Assessment & Plan (11/21/2024 3:03 PM CDT): Continue home lisinopril and coreg Assessment & Plan (07/24/2018 9:27 AM AURIST): Continue home meds and dialysis. Hyperlipidemia associated [...] today Assessment & Plan (08/29/2024 4:04 PM AURIST): Routine M/W/F r brachial fistula (has required multiple dilations last at [facility] 07/2024 Feeling well post procedure denies dyspnea. Renal consulted for HD prior to discharge Assessment & Plan (07/24/2018 9:26 AM AURIST): HD as per renal consult. Resume outpt [...] Resolved Date Coronary artery disease invo lving white earth coronary artery of white earth heart without angina pectoris 03/07/2021 03/07/2021 Preoperative cardiovascular examination 03/07/2021 09/29/2022 Hypoxia 11/27/2019 04/03/2023 Toe ulcer, left, with unspecified severity 09/16/2018 03/07/2021 Overview (09/16/2018): Added automatically from request for surgery [id number] Cough 11/10/2017 03/07/2021 Lumbago 06/04/2017 03/07/2021 Pain of lower extremity 06/04/2017 09/2 12/2022 Chronic anticoagulation 08/22/2016 06/0 10/2018 Overview (10/12/2016): Chronic anticoagulation Stage 4 chronic kidney disease 04/21/2014 04/03/2023 Pain in joint 03/04/2014 04/03/2023 Paroxysmal atrial fibrillation 05/06/2024 ESRD (end stage renal disease) ([facility]) 03/07/2021 Pre-transplant evaluation fo r kidney transplant [...] often do you attend chur ch or anabaptism services? 1 to 4 times per year 09/04/2019 Do you belong to any clubs o r organizations such as pentecostalism groups, unions, fraternal or athletic groups, or [...] on file Legal Sex Female 12:39 PM AURIST Gender Identity Not on file Sexual Orientation [...] disease) (HCC) Medical Devices Implanted Type Area Hospice Administrator Device Identifier Shelf Expiration Date Model / Serial / Lot Device Clsr 27mm Davida Watchman - [id number] - [id number] Implanted:Qty : 1 on 07/23/2018 by Mike Mccloud MD PhD at [facility] Other - see comments Left: Heart [email or web address] 12/13/2020 27MM-DAVIDA CLOSURE DEVICE / [id number] / [id number] Description:Left atrial appe ndage closure device Watchman [employer] [id number] Angio-Seal Vip Bondek-Plus 6fr .035in 70cm Hemostatic Latex Free - [id number] Implanted:Qty : 1 on 03/20/2018 by Abdifatah Villa MD at [facility] [employer]ig [employer] 12/06/2018 [id number] / / [id number] Device Davida Watchman Procedure - [id number] Implanted:Qty : 1 on 07/23/2018 by Mike Mccloud MD PhD at [facility] GENWI Breanna [employer] 1 - 3 PC / / Description:1 Device Daig [employer] [id number] Angio-Seal Vip Bondek-Plus 6fr .035in 70cm Hemostatic Latex Free - [id number] Implanted:Qty : 1 on 09/26/2018 by Abdifatah Villa MD at [facility] [employer] 06/07/2019 [id number] / / [id number] Daig Breanna [id number] Device Closure Angio-Seal Vip Bondek-Plus Polyglyd L70 Cm Od6 Fr Odsec.035 In Vascular - [id number] Implanted:Qty : 1 on 10/16/2019 by Abdifatah Villa MD at [facility] [employer] [id number] / / [employer] Device 6fr Closure Celt Acd Vascular Sterile Latex Free Disposable Flavio Kclt-06 - [id number] Implanted:Qty : 1 on 08/28/2024 at [facility] [employer] 01/01/2027 KCLT-06 / / [id number] TerZollo Angio-Seal Vip 6fr Closere Device [id number] - [id number] Implanted:Qty : 1 on 11/21/2024 at [facility] [employer] 03/26/2025 [id number] / / [id number] Procedures Procedure Name Priority Date/Time Associated Diagnosis [...] Routine) 10/30/2024 3:13 PM CDT Atherosclerosis of [place] arteries of extremities with intermittent claudication, bilateral legs US ARTERIAL DUPLEX LOWER EXTREMITY BILATERAL Schedule Routine, Read Routine (OP Routine) 10/30/2024 2:19 PM CDT Atherosclerosis of [place] arteries of extremities with intermittent claudication, bilateral legs POCT GLUCOSE DEVICE Routine 08/29/2024 1 1:37 AM AURIST HEPATITIS B SURFACE ANTIGEN STAT 08/29/2024 8:36 AM AURIST POCT GLUCOSE DEVICE Routine 08/29/2024 8 :02 AM AURIST HEPATITIS C ANTIBODY Routine 08/19/2020 12:07 PM AURIST ESRD (end stage renal disease) (HCC) HEMOGLOBIN A1C Routine 09/04/2019 12:14 AM AURIST from Last 3 Months or Most Recently Relevant to Health Maintenance Results * (ABNORMAL) POCT glucose (11/22/2024 12:10 PM CDT) Glucose, POC 231(H) 70 - 199 mg/dL Blood 11/22/2024 12:1 0 PM CDT 11/22/2024 12:10 PM CDT Shahnaz Heredia MD LAB POCT ORDERABLES - DEV ICE Final Result [facility] Department [place] [address] * (ABNORMAL) POCT glucose (11/22/2024 8:28 AM CDT) Glucose, POC 230(H) 70 - 199 mg/dL Blood 11/22/2024 8:28 AM CDT 11/22/2024 8:28 AM CDT Shahnaz Heredia MD LAB POCT ORDERABLES - DEV ICE Final Result Performing Organization Address [facility] Co de Phone Number GUILLERMINA [facility] Department [place] [address] * (ABNORMAL) eGFR (11/22/2024 7:56 AM CDT) [...] ORDERABLES Final R esult Performing Organization Address [facility] Co de Phone Number [facility] Department [place] [address] * Hepatitis B Surface Antigen Blood (11/22/2024 7:56 AM CDT) HepBsAg Nonreactive Nonreactive Blood 11/22/2024 7:56 AM CDT 11/22/2024 8:36 AM CDT us Nina Hopson MD LAB MICROB IOLOGY - GENERAL ORDERABLES Edited Result - Final [facility] Department [place] [address] * (ABNORMAL) CBC without differential (11/22/2024 7:56 AM CDT) Pathologist [facility] WBC 7.32 3.80 - 9.90 K/cumm Hgb 8.6(L) 11.9 - 15.5 g/dL [facility] Hct 28.8(L) 35.6 - 45.5 % [facility] Plt 111(L) 150 - 400 K/cumm [facility] MPV 12.6(H) 9.1 - 12.3 fL [facility] RBC 2.91(L) 3.90 - 5.20 M/cumm [facility] MCV 99.0(H) 81.3 - 96.4 fL [facility] MCH 29.6 27.1 - 33.3 pg [facility] MCHC 29.9(L) 32.3 - 35.7 g/dL [facility] RDW CV 17.2(H) 11.1 - 14.9 % [facility] RDW SD 60.7(H) 35.7 - 48.1 fL [facility] NRBC abs 0.00 0.00 - 0.01 K/cumm [facility] Blood 11/22/2024 7:56 AM CDT 11/22/2024 8:37 AM CDT Tomy GUADARRAMA LAB BLOOD ORDERABLES Final R esult [facility] Department [place] [address] * (ABNORMAL) Basic metabolic panel (11/22/2024 7:56 AM CDT) Pathologist [facility] Sodium 131(L) 135 - 145 mmol/L Potassium, pl 5.5(H) 3.3 - 4.9 mmol/L [facility] Chloride 92(L) 97 - 110 mmol/L [facility] CO2 29 22 - 32 mmol/L [facility] Anion gap 10 2 - 15 mmol/L [facility] BUN 58(H) 6 - 25 mg/dL [facility] Creatinine 6.13(H) 0.60 - 1.10 mg/dL [facility] Glucose 257(H) 70 - 199 mg/dL [facility] Comment: Interpretive Data Fasting glucose >/= [...] 2022. Calcium 8.8 8.5 - 10.3 mg/dL [facility] Blood 11/22/2024 7:56 AM CDT 11/22/2024 8:37 AM CDT us Tomy GUADARRAMA LAB BLOOD ORDERABLES Final R esult [facility] Department [place] [address] * (ABNORMAL) eGFR (11/21/2024 10:36 PM CDT) eGFR 7(L) >=60 mL/min/1. 73 m2 [...] of Race in Diagnosing Kidney Disease, JASN 202). The CKD-EPI equation should not be used for patients with unstable renal function and has not been validated in children and those over 70. Current interpretive data was last reviewed 2021. Blood 11/21/2024 10:3 6 PM CDT 11/21/2024 10:49 PM CDT us Christina Fermin NP LAB BLOOD ORDERABLES Final Result [facility] Department [place] [address] * (ABNORMAL) CBC without differential (11/21/2024 10:36 PM CDT) WBC 8.51 3.80 - 9.90 K/cumm Hgb 8.9(L) 11.9 - 15.5 g/dL [facility] Hct 29.8(L) 35.6 - 45.5 % [facility] Plt 112(L) 150 - 400 K/cumm [facility] MPV 12.7(H) 9.1 - 12.3 fL [facility] RBC 3.01(L) 3.90 - 5.20 M/cumm [facility] MCV 99.0(H) 81.3 - 96.4 fL [facility] MCH 29.6 27.1 - 33.3 pg [facility] MCHC 29.9(L) 32.3 - 35.7 g/dL [facility] RDW CV 17.2(H) 11.1 - 14.9 % [facility] RDW SD 60.3(H) 35.7 - 48.1 fL [facility] NRBC abs 0.02(H) 0.00 - 0.01 K/cumm [facility] Blood 11/21/2024 10:3 6 PM CDT 11/21/2024 10:49 PM CDT us Christina Fermin NP LAB BLOOD ORDERABLES Final Result [facility] Department [place] [address] * (ABNORMAL) Phosphorus (11/21/2024 10:36 PM CDT) Pathologist [facility] Phosphorus, pl 6.5(H) 2.3 - 4.5 mg/dL Blood 11/21/2024 10:3 6 PM CDT 11/21/2024 10:49 PM CDT us Robles Alicea MD LAB BLOOD ORDERABLES Gertrude l Result Performing Organization Address [facility] Co de Phone Number [facility] Department [place] [address] * (ABNORMAL) Basic metabolic panel (11/21/2024 10:36 PM CDT) [facility] Sodium 135 135 - 145 mmol/L Potassium, pl 5.5(H) 3.3 - 4.9 mmol/L [facility] Chloride 93(L) 97 - 110 mmol/L [facility] CO2 29 22 - 32 mmol/L [facility] Anion gap 13 2 - 15 mmol/L [facility] BUN 57(H) 6 - 25 mg/dL [facility] Creatinine 5.81(H) 0.60 - 1.10 mg/dL [facility] Glucose 257(H) 70 - 199 mg/dL [facility] Comment: Interpretive Data Fasting glucose >/= [...] 2022. Calcium 9.6 8.5 - 10.3 mg/dL [facility] Blood 11/21/2024 10:3 6 PM CDT 11/21/2024 10:49 PM CDT Christina Fermin NP LAB BLOOD ORDERABLES Final Result Performing Organization Address [facility] Co de Phone Number [facility] [place] [address] * POCT glucose (11/21/2024 8:23 PM CDT) Glucose, POC 119 70 - 199 mg/dL Blood 11/21/2024 8:23 PM CDT 11/21/2024 8:23 PM CDT Result [facility] Shahnaz Heredia MD LAB POCT ORDERABLES - DEV ICE Final Result Performing Organization Address [facility] Co de Phone Number [facility] [place] [address] * POCT glucose (11/21/2024 5:24 PM CDT) Glucose, POC 188 70 - 199 mg/dL Blood 11/21/2024 5:24 PM CDT 11/21/2024 5:24 PM CDT Result [facility] Shahnaz Heredia MD LAB POCT ORDERABLES - DEV ICE Final Result Performing Organization Address [facility] Co de Phone Number [facility] [place] [address] * IR Angiogram Lower Extremity Right (11/21/2024 [...] was obtained. Prior to beginning the procedure, [place] Protocol was performed to confirm the patient's [...] of the patent vessel was recorded. The 5-Trinidadian catheter was placed in the superficial femoral artery and the right lower extremity angiogram was performed in stations to the foot A 45 cm 6-Trinidadian sheath was advanced to the superficial femoral [...] was obtained. Prior to beginning the procedure, [place] Protocol was performed to confirm the patient's [...] of the patent vessel was recorded. The 5-Trinidadian catheter was placed in the superficial femoral artery and the right lower extremity angiogram was performed in stations to the foot A 45 cm 6-Trinidadian sheath was advanced to the superficial femoral [...] 318(H) 123 - 168 sec POC Performer [id number] [facility] POC Device Number [id number] [facility] Blood 11/21/2024 10:3 6 AM CDT 11/21/2024 10:36 AM CDT Result [facility] Shahnza Heredia MD LAB POCT ORDERABLES - DEV ICE Final Result Performing Organization Address [facility]/ZIP Co de Phone Number [facility] Department [place] [address] * (ABNORMAL) POCT Activated clotting time, low range (11/21/2024 9:54 AM CDT) ACT 331(H) 123 - 168 sec POC Performer [id number] [facility] POC Device Number [id number] [facility] Blood 11/21/2024 9:54 AM CDT 11/21/2024 9:54 AM CDT Shahnaz Heredia MD LAB POCT ORDERABLES - DEV ICE Final Result Performing Organization Address [facility]/ZIP Co de Phone Number [facility] [place] [address] * (ABNORMAL) POCT Activated clotting time, low range (11/21/2024 9:20 AM CDT) ACT 360(H) 123 - 168 sec POC Performer [id number] [facility] POC Device Number [id number] [facility] Blood 11/21/2024 9:20 AM CDT 11/21/2024 9:20 AM CDT us Shahnaz Heredia MD LAB POCT ORDERABLES - DEV ICE Final Result Performing Organization Address [facility]/ZIP Co de Phone Number [facility] Department [place] [address] * (ABNORMAL) eGFR (11/21/2024 6:31 AM CDT) eGFR 8(L) >=60 mL/min/1. 73 m2 Comment: [...] Fi nal Result Performing Organization Address [facility]/ZIP Co de Phone Number [facility] Department [place] [address] * (ABNORMAL) Differential, auto (11/21/2024 6:31 AM CDT) Neutrophil abs 5.81 1.50 - 6.50 K/cumm Imm gran abs 0.03 0.00 - 0.10 K/cumm [facility] Lymphocyte abs 1.28 0.80 - 3.30 K/cumm [facility] Monocyte abs 0.89(H) 0.20 - 0.80 K/cumm [facility] Eosinophil abs 0.05 0.00 - 0.50 K/cumm [facility] Basophil abs 0.03 0.00 - 0.10 K/cumm [facility] Neutrophil pct 71.8 % [facility] Comment: Interpretive Data Percent cell count reference ranges are not reported, since discordance with absolute values may lead to misinterpretation of CBC data. Current Interpretive Data was last revised on 2017. Imm gran pct 0.4 % [facility] Comment: Interpretive Data Percent cell count reference ranges are not reported, since discordance with absolute values may lead to misinterpretation of CBC data. Current Interpretive Data was last revised on 2017. Lymphocyte pct 15.8 % [facility] Comment: Interpretive Data Percent cell count reference ranges are not reported, since discordance with absolute values may lead to misinterpretation of CBC data. Current Interpretive Data was last revised on 2017. Monocyte pct 11.0 % [facility] Comment: Interpretive Data Percent cell count reference ranges are not reported, since discordance with absolute values may lead to misinterpretation of CBC data. Current Interpretive Data was last revised on 2017. Eosinophil pct 0.6 % [facility] Comment: Interpretive Data Percent cell count reference ranges are not reported, since discordance with absolute values may lead to misinterpretation of CBC data. Current Interpretive Data was last revised on 2017. Basophil pct 0.4 % [facility] Comment: Interpretive Data Percent cell count reference ranges are not reported, since discordance with absolute values may lead to misinterpretation of CBC data. Current Interpretive Data was last revised on 2017. Blood 11/21/2024 6:31 AM CDT 11/21/2024 6:47 AM CDT Anthony Gorman MD LAB BLOOD ORDERABLES Fi nal Result [facility] Department [place] [address] * (ABNORMAL) CBC with auto differential (11/21/2024 6:31 AM CDT) [facility] WBC 8.09 3.80 - 9.90 K/cumm Hgb 9.9(L) 11.9 - 15.5 g/dL [facility] Hct 32.3(L) 35.6 - 45.5 % [facility] Plt 134(L) 150 - 400 K/cumm [facility] MPV 12.6(H) 9.1 - 12.3 fL [facility] RBC 3.31(L) 3.90 - 5.20 M/cumm [facility] MCV 97.6(H) 81.3 - 96.4 fL [facility] MCH 29.9 27.1 - 33.3 pg [facility] MCHC 30.7(L) 32.3 - 35.7 g/dL [facility] RDW CV 17.2(H) 11.1 - 14.9 % [facility] RDW SD 60.4(H) 35.7 - 48.1 fL [facility] NRBC abs 0.02(H) 0.00 - 0.01 K/cumm [facility] Blood 11/21/2024 6:31 AM CDT 11/21/2024 6:47 AM CDT Anthony Gorman MD LAB BLOOD ORDERABLES Fi nal Result [facility] Department [place] [address] * (ABNORMAL) Lipid panel (11/21/2024 6:31 AM [...] revised on 2018. Triglycerides 90 <=149 mg/dL [facility] Comment: Interpretive Data Ages < or [...] revised on 2018. HDL 35(L) >=40 mg/dL [facility] Comment: Interpretive Data Ages < or [...] on 2018. LDL, calculated 46 <=129 mg/dL [facility] Comment: Interpretive Data Ages < or [...] 3. Harjinder Gastelum et al. ANTON Cardiol. 2019November 06;5(5):540-548. doi: [email or web address] Current Interpretive Data was last revised on 2024. Non-HDL Cholesterol 64 mg/dL [facility] Comment: Interpretive Data Ages < or [...] last revised on 2018. Chol/HDL ratio 3 [facility] Blood 11/21/2024 6:31 AM CDT 11/21/2024 6:47 AM CDT us Anthony Gorman MD LAB BLOOD ORDERABLES Fi nal Result [facility] Department [place] [address] * (ABNORMAL) Basic metabolic panel (11/21/2024 6:31 AM CDT) Sodium 135 135 - 145 mmol/L Potassium, pl 4.9 3.3 - 4.9 mmol/L [facility] Chloride 92(L) 97 - 110 mmol/L [facility] CO2 32 22 - 32 mmol/L [facility] Anion gap 11 2 - 15 mmol/L [facility] BUN 50(H) 6 - 25 mg/dL [facility] Creatinine 5.26(H) 0.60 - 1.10 mg/dL [facility] Glucose 231(H) 70 - 199 mg/dL [facility] Comment: Interpretive Data Fasting glucose >/= [...] 2022. Calcium 10.3 8.5 - 10.3 mg/dL [facility] Blood 11/21/2024 6:31 AM CDT 11/21/2024 6:47 AM CDT us Anthony Gorman MD LAB BLOOD ORDERABLES Fi nal Result [facility] Department [place] [address] * US MELISSA And Arterial Doppler Lower [...] DATE: 10/30/2024 2:00 PM HISTORY: Atherosclerosis of [place] Arteries of Extremities with Intermittent Cladication, Bilateral [...] DATE: 10/30/2024 2:00 PM HISTORY: Atherosclerosis of [place] Arteries of Extremities with Intermittent Cladication, Bilateral [...] DATE: 10/30/2024 2:00 PM HISTORY: Atherosclerosis of [place] Arteries of Extremities with Intermittent Cladication, Bilateral [...] DATE: 10/30/2024 2:00 PM HISTORY: Atherosclerosis of [place] Arteries of Extremities with Intermittent Cladication, Bilateral [...] by: Ar Aj M.D. Anthony Gorman MD IM US PROCEDURES Final Result * POCT glucose (08/29/2024 11:37 AM AURIST) Glucose, POC 110 70 - 199 mg/dL Blood 08/29/2024 11:3 7 AM AURIST 08/29/2024 11:37 AM AURIST Paulo Harper MD LAB POCT ORDERABLES - D EVICE Final Result Performing Organization Address City/[facility]/ZIP Co de Phone Number [facility] Department [place] [address] * Hepatitis B Surface Antigen Blood (08/29/2024 8:36 AM AURIST) Pathologist [facility] HepBsAg Nonreactive Nonreactive Blood 08/29/2024 8:36 AM AURIST 08/29/2024 8:48 AM AURIST Leoncio zaragoza MD LAB MICROBIOLOGY - GENERAL ORDERABLES Final Result Performing Organization Address City/[facility] Co de Phone Number [facility] [place] [address] * POCT glucose (08/29/2024 8:02 AM AURIST) [facility] Glucose, POC 149 70 - 199 mg/dL Blood 08/29/2024 8:02 AM AURIST 08/29/2024 8:02 AM AURIST Paulo Harper MD LAB POCT ORDERABLES - D EVICE Final Result Performing Organization Address [facility] [place] [address] * Hepatitis C antibody (08/19/2020 12:07 PM AURIST) [facility] Hep C Ab Nonreactive Nonreactive [facility] Comment:Antibodies to HCV no t detected. Does NOT exclude the possibility of recent exposure to HCV. Blood specimen (specimen) 08/19/2020 12:07 PM AURIST 08/19/2020 12:15 PM AURIST Humza Trevizo MD LAB MICROB IOLOGY - GENERAL ORDERABLES Edited Result - Final Performing Organization Address [facility]/[place] [address] * (ABNORMAL) Hemoglobin A1c (09/04/2019 12:14 AM AURIST) [facility] Hgb A1C 8.2(H) 4.0 - 5.6 % [facility] Estimated Average Glucose 189 mg/dL [facility] Comment: The ADA recommends reporting an estimated Average Glucose (eAG) with all Hemoglobin A1c results using the equation derived from a study of 507 normal and diabetic adults. Minority populations were underrepresented and children were not included. (Diabetes Care 31:4107-6154, 2008). The eAG is not equivalent to a fasting glucose. Blood specimen (specimen) 09/04/2019 12:14 AM AURIST 09/04/2019 12:58 AM AURIST us Brandin Pena MD LAB BLOOD ORDERABLES Final Result Performing Organization Address City/State/ZIP Co ks Phone Number [facility] Department [place] [address] from Last 3 Months or Most Recently Relevant to Health Maintenance Insurance [facility] MEDICARE ADVANTAGE IDPA MEDICARE [facility] MEDICARE ADVANTAGE [employer] [facility] MEDICARE ADVANTAGE IDPA Advance Directives For more information, please contact: [phone] * Full Code (Latest Code Status on File) Date Activated Date Inactivated Comments 11/21/2024 7:27 AM 11/22/2024 8:58 PM * Full Code Date Activated Date Inactivated Comments 08/28/2024 6:35 AM 08/29/2024 9:01 PM * Full Code Date Activated Date Inactivated Comments 09/03/2019 11:07 PM 09/04/2019 6:57 PM * Full Code Date Activated Date Inactivated Comments 07/23/2018 10:39 PM 07/24/2018 7:45 PM Care Teams Kindergartners Helper Relationship Specialty Start Date End Date David Coppola MD PCP - General Family Medicine 10/29/17 Jacob Suarez MD Referring Physician Nephrology 12/20/18 Ros Seay MD Quirk Sander Cardiology 03/05/19 Abdifatah Villa MD [address] [facility] [address] [place] [address] Consulting Physician Cardiology 09/01/20 Issa Clements MD [address] [facility] [address] [place] [address] Referring Physician General Surgery 09/01/20
--- OUTSIDE RECORDS SUMMARY | 2024-11-26 18:03 | XMS_ITS | Encounter Summary ---
Author Organization [facility] Address [address] [place] [address] Care Team Providers Care Web Merchant Name Role Phone David Coppola MD Primary Care Provider + [phone] David Coppola MD Unavailable [phone] David Coppola MD Unavailable [phone] Virginie Corea RN Unavailable [phone] Encounter Details Date Type Department Care Team (Late st Contact Info) Description 04/10/2018 Nutrition [facility] [address] [place] [phone] [address]/LAURA Social History Tobacco Use Types Packs/Day Years Used Date Smoking Tobacco: Never Smokeless Tobacco: Never Alcohol Use Standard Drinks/Week Comments No 0 (1 standard drink = 0.6 oz pur e alcohol) Comments No Sex and Gender Information Value Date Recorded Sex Assigned at Not on file 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 Gender Identity Not on file Sexual [...] Care Team (Late st Contact Info) Description 03/10/2025 11:00 AM CDT Appointment [facility] [address] [facility], [address] [place], [place] [id number] [place] [address] [facility] [address] [place] [address] [place] [address] [facility] [address] [place] [address] Cristo Fontenot MD [address] [place] [address] 03/17/2025 1:00 PM CDT Procedure visit [facility] [address] [place] [phone] 03/17/2025 1:30 PM CDT Office Visit [facility] [address] [place] [phone] Avis Dumont, HOSPICE PATIENT CARE SECRETARY-PRECISION OPTICAL GOODS WORKER [address] [place] [address] [place] [address] documented as of this encounter Visit Diagnoses Not on filedocumented in this encounter Care Teams Web Merchant Relationship Specialty Start Date End Date David Coppola MD [address] [place] [phone] PCP - General 08/15/16 David Coppola MD [address] [place] [phone] Family Medicine 02/08/15 David Coppola MD [address] [place] [phone] Family Medicine 08/15/16 Virginie Corea RN Butadiene Converter Utility Operator 02/23/15 documented as of this encounter
--- OUTSIDE RECORDS SUMMARY | 2024-11-26 18:03 | XMS_ITS | Encounter Summary ---
Author Organization [facility] Address [address] [place] [address] Phone Care Team Providers Care Bank Sales And Service Manager Name Role Phone David Coppola MD Primary Care Provider [phone] David Coppola MD Primary Care Provider + [phone] David Coppola MD Primary Care Provider + [phone] David Coppola MD Primary Care Provider [phone] Unknown, Notinfile Primary Care Provider Unavail able David Coppola MD Primary Care Provider [phone] Jacob Suarez MD Unavailable [phone] Marnie Lara RN Unavailable Ros Seay MD Unavailable [phone] Johana Edmond RN Unavailable Abdifatah Vilal MD Unavailable Isas Clements MD Unavailable [phone] Encounter Details Date Type Department Care Team (Latest Contact Info) Description 12/16/1980 Orders Only [facility] Scanning, Provider Social History Tobacco Use Types Packs/Day Years Used Date Smoking Tobacco: Never Assessed Comments Unknown Sex and Gender Information Value Date Recorded Sex Assigned at Not on file 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 Gender Identity Not on file Sexual Orientation [...] Influenza, adult 09/04/2019 09/04/2019 09/11/2019 3:05 AM CONSUMER ELECTRONICS MERCHANDISER Abscess/Wound/Cellulitis 10/16/2019 10/16/2019 3:05 AM CDT documented as of this encounter Care Teams Bank Sales And Service Manager Relationship Specialty Start Date End Date [...] Nephrology 12/20/18 Marnie Lara, RN Registered Nurse Cosmetic Sales Advisor 12/20/1809/03 Ros Seay MD Italian Tutor Cardiology 03/05/19 Johana Edmond, RN [address] [facility] [address] [place] [address] Cosmetic Sales Advisor 08/21/19 Abdifatah Villa MD [facility] [address] [place] [address] Consulting Physician Cardiology 09/01/20 Issa Clements MD [address] [facility] [address] [facility] [address] [place] [address] Referring Physician General Surgery 09/01/20 documented as of this encounter
--- OUTSIDE RECORDS SUMMARY | 2024-11-26 18:03 | XMS_ITS ---
Author Organization [facility] [address] Address [address] [place] [address] Care Team Providers Care Rubber Stamps And Dies Supervisor Name Role Phone David Coppola MD Primary Care Provider [phone] Jacob Suarez MD Unavailable [phone] Ros Seay MD Unavailable [phone] Abdifatah Villa MD Unavailable Issa Clements MD Unavailable [phone] Dialysis Plan of Treatment Dialysis Prescription As-Of Date Prescribed Dry Weight Primary Se tting 11/21/2024 Acute Dialysis S CA Instructions Modality Prescribed Duration (hours) Frequency Blood Flow Rate Conventional Hemodialysis 40 0 mL/min Dialysis Access Type Location Dialysate Sodium Level Potassium Level Calcium Level Bicarbonate Level 138 mEq/L 35 mEq/L from Last 30 Days Dialysis Access Sites Type Status Location Placement Date Removal Da te AV graft Active Left Upper Arm - Anterior Hemodialysis AV Access Upper arm Active Left Upper Arm - Anterior AV fistula Active Right Upper Arm - Anterior Historical Dialysis Procedures Date BP Pre BP Post Weight Pre Weight Post Treatment Duration Start Time End Time Achieved BFR Vascular Access from Last 30 Days Procedures Procedure Name Priority Date/Time Associated Diagnosis [...] Routine) 10/30/2024 3:13 PM CDT Atherosclerosis of [place] arteries of extremities with intermittent claudication, bilateral legs VL US ARTERIAL DUPLEX LOWER EXTREMITY BILATERAL Schedule Routine, Read Routine (OP Routine) 10/30/2024 2:19 PM CDT Atherosclerosis of [place] arteries of extremities with intermittent claudication, bilateral legs POCT GLUCOSE DEVICE Routine 08/29/2024 1 1:37 AM BOILER FIREMAN HEPATITIS B SURFACE ANTIGEN STAT 08/29/2024 8:36 AM BOILER FIREMAN POCT GLUCOSE DEVICE Routine 08/29/2024 8 :02 AM BOILER FIREMAN HEPATITIS C ANTIBODY Routine 08/19/2020 12:07 PM BOILER FIREMAN ESRD (end stage renal disease) (HCC) HEMOGLOBIN A1C Routine 09/04/2019 12:14 AM BOILER FIREMAN from Last 3 Months or Most Recently [...] GIB. Patients daughter reports recent admission to [facility] due to concern for GIB. Patient followed up with her outpatient GI. Planning for EGD at the end of November - continue PPI. Assessment & Plan (11/21/2024 3:03 PM CDT): History of peptic ulcer with GIB. Patients daughter reports recent admission to [facility] due to concern for GIB. Patient followed up with her outpatient GI. 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 Reviewed PCP records noted hypoglycemia last hospital admit with basal insulins continued Will continue januvia and hold tresiba and victoza SSI Family history of ischemic h eart disease and other diseases of the circulatory system 11/27/2019 Critical limb ischemia of right lower extremity 10/14/2019 Overview (10/14/2019): Added automatically from request for surgery [id number] Assessment & Plan (08/28/2024 12:59 PM BOILER FIREMAN): S/p uncomplicated balloon angioplasty of the AT, [...] (10/14/2019): Added automatically from request for surgery [id number] Presence of Watchman left atrial appendage closu re device 08/29/2018 Atrial fibrillation, permanent 06/13/2018 Overview (06/13/2018): Added automatically from request for surgery [id number] Assessment & Plan (11/22/2024 1:43 PM CDT): Rate controlled and s/p Watchman due to prior GIB. - continue home coreg as below. Assessment & Plan (11/21/2024 3:39 PM CDT): Rate controlled and s/p Watchman due to prior GIB. - continue home coreg as below Assessment & Plan (08/28/2024 1:03 PM BOILER FIREMAN): Follows with [facility] cardiology. Rate controlled and s/p Watchman due to prior severe GIB Recently stopped coreg due to bradycardia ASA and plavix to start per IR recs post revascularization Assessment & Plan (07/24/2018 9:29 AM BOILER FIREMAN): Continue coreg. S/p Watchmann DAVIDA occluder implant for future deescalate anticoagulation. Continue apixiban for now as per EP. Post procedure CXR. 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 PAD (peripheral artery disease) 03/15/2018 Overview (03/15/2018): Added automatically from request for surgery [id number] Assessment & Plan (11/22/2024 1:43 PM CDT): [...] (03/15/2018): Added automatically from request for surgery [id number] Ischemia of foot 03/15/2018 Overview (03/15/2018): Added automatically from request for surgery [id number] Noncompliance 02/24/2018 Essential hypertension 11/10/2017 Assessment & Plan (11/22/2024 1:43 PM CDT): On lisinopril and coreg at home, holding today for lower BP. Resume as able. Assessment & Plan (11/21/2024 3:03 PM CDT): Continue home lisinopril and coreg Assessment & Plan (07/24/2018 9:27 AM BOILER FIREMAN): Continue home meds and dialysis. Hyperlipidemia associated with type 2 diabetes [place] 11/10/2017 ESRD (end stage renal disease) on dialysis 11/10 Assessment & Plan (11/22/2024 1:43 PM CDT): Patient on HD MWF - Received Dialysis today on 11/22. Resume outpatient schedule. Assessment & Plan (11/21/2024 3:03 PM CDT): Patient on HD MWF - nephrology consult for dialysis today Assessment & Plan (08/29/2024 4:04 PM BOILER FIREMAN): Routine M/W/F r brachial fistula (has required multiple dilations last at [facility] 07/2024 Feeling well post procedure denies dyspnea. Renal consulted for HD prior to discharge Assessment & Plan (07/24/2018 9:26 AM BOILER FIREMAN): HD as per renal consult. Resume outpt [...] regimen. Accu check qid and SSI ordered Immunizations Immunization Administration Dates Next Due Hep [...] often do you attend chur ch or hinduism services? 1 to 4 times per year 09/04/2019 Do you belong to any clubs o r organizations such as spiritism groups, unions, fraternal or athletic groups, or [...] on file Legal Sex Female 12:39 PM BOILER FIREMAN Gender Identity Not on file Sexual Orientation [...] Mass Index 26 11/21/2024 5:25 PM CDT Results * (ABNORMAL) POCT glucose (11/22/2024 12:10 PM CDT) Glucose, POC 231(H) 70 - 199 mg/dL Blood 11/22/2024 12:1 0 PM CDT 11/22/2024 12:10 PM CDT Shahnaz Heredia MD LAB POCT ORDERABLES - DEV ICE Final Result [facility] [place] [address] * (ABNORMAL) POCT glucose (11/22/2024 8:28 AM CDT) Glucose, POC 230(H) 70 - 199 mg/dL Blood 11/22/2024 8:28 AM CDT 11/22/2024 8:28 AM CDT Shahnaz Heredia MD LAB POCT ORDERABLES - DEV ICE Final Result [facility] [place] [address] * (ABNORMAL) eGFR (11/22/2024 7:56 AM CDT) [...] GUADARRAMA LAB BLOOD ORDERABLES Final R esult [facility] [place] [address] * Hepatitis B Surface Antigen Blood (11/22/2024 7:56 AM CDT) HepBsAg Nonreactive Nonreactive Blood 11/22/2024 7:56 AM CDT 11/22/2024 8:36 AM CDT Nina Hopson MD LAB MICROB IOLOGY - GENERAL ORDERABLES Edited Result - Final [facility] [place] [address] * (ABNORMAL) CBC without differential (11/22/2024 7:56 AM CDT) WBC 7.32 3.80 - 9.90 K/cumm Hgb 8.6(L) 11.9 - 15.5 g/dL [facility] Hct 28.8(L) 35.6 - 45.5 % [facility] Plt 111(L) 150 - 400 K/cumm [facility] MPV 12.6(H) 9.1 - 12.3 fL [facility] RBC 2.91(L) 3.90 - 5.20 M/cumm [facility] MCV 99.0(H) 81.3 - 96.4 fL [facility] MCH 29.6 27.1 - 33.3 pg [facility] MCHC 29.9(L) 32.3 - 35.7 g/dL [facility] RDW CV 17.2(H) 11.1 - 14.9 % [facility] RDW SD 60.7(H) 35.7 - 48.1 fL [facility] NRBC abs 0.00 0.00 - 0.01 K/cumm [facility] Blood 11/22/2024 7:56 AM CDT 11/22/2024 8:37 AM CDT us Tomy GUADARRAMA LAB BLOOD ORDERABLES Final R esult [facility] [place] [address] * (ABNORMAL) Basic metabolic panel (11/22/2024 7:56 AM CDT) [facility] Sodium 131(L) 135 - 145 mmol/L Potassium, pl 5.5(H) 3.3 - 4.9 mmol/L [facility] Chloride 92(L) 97 - 110 mmol/L [facility] CO2 29 22 - 32 mmol/L [facility] Anion gap 10 2 - 15 mmol/L [facility] BUN 58(H) 6 - 25 mg/dL [facility] Creatinine 6.13(H) 0.60 - 1.10 mg/dL [facility] Glucose 257(H) 70 - 199 mg/dL [facility] Comment: Interpretive Data Fasting glucose >/= 126 [...] 2022. Calcium 8.8 8.5 - 10.3 mg/dL [facility] Blood 11/22/2024 7:56 AM CDT 11/22/2024 8:37 AM CDT us Tomy GUADARRAMA LAB BLOOD ORDERABLES Final R esult [facility] Department [place] [address] * (ABNORMAL) eGFR (11/21/2024 10:36 PM CDT) [...] Fermin NP LAB BLOOD ORDERABLES Final Result [facility] [place] [address] * (ABNORMAL) CBC without differential (11/21/2024 10:36 PM CDT) [facility] WBC 8.51 3.80 - 9.90 K/cumm Hgb 8.9(L) 11.9 - 15.5 g/dL [facility] Hct 29.8(L) 35.6 - 45.5 % [facility] Plt 112(L) 150 - 400 K/cumm [facility] MPV 12.7(H) 9.1 - 12.3 fL [facility] RBC 3.01(L) 3.90 - 5.20 M/cumm [facility] MCV 99.0(H) 81.3 - 96.4 fL [facility] MCH 29.6 27.1 - 33.3 pg [facility] MCHC 29.9(L) 32.3 - 35.7 g/dL [facility] RDW CV 17.2(H) 11.1 - 14.9 % [facility] RDW SD 60.3(H) 35.7 - 48.1 fL [facility] NRBC abs 0.02(H) 0.00 - 0.01 K/cumm [facility] Blood 11/21/2024 10:3 6 PM CDT 11/21/2024 10:49 PM CDT Christina Fermin NP LAB BLOOD ORDERABLES Final Result [facility] [place] [address] * (ABNORMAL) Phosphorus (11/21/2024 10:36 PM CDT) Phosphorus, pl 6.5(H) 2.3 - 4.5 mg/dL Blood 11/21/2024 10:3 6 PM CDT 11/21/2024 10:49 PM CDT us Robles Alicea MD LAB BLOOD ORDERABLES Gertrude l Result [facility] [place] [address] * (ABNORMAL) Basic metabolic panel (11/21/2024 10:36 PM CDT) Pathologist [facility] Sodium 135 135 - 145 mmol/L Potassium, pl 5.5(H) 3.3 - 4.9 mmol/L [facility] Chloride 93(L) 97 - 110 mmol/L [facility] CO2 29 22 - 32 mmol/L [facility] Anion gap 13 2 - 15 mmol/L [facility] BUN 57(H) 6 - 25 mg/dL [facility] Creatinine 5.81(H) 0.60 - 1.10 mg/dL [facility] Glucose 257(H) 70 - 199 mg/dL [facility] Comment: Interpretive Data Fasting glucose >/= 126 [...] 2022. Calcium 9.6 8.5 - 10.3 mg/dL [facility] Blood 11/21/2024 10:3 6 PM CDT 11/21/2024 10:49 PM CDT us Christina Fermin NP LAB BLOOD ORDERABLES Final Result [facility] [place] [address] * POCT glucose (11/21/2024 8:23 PM CDT) Glucose, POC 119 70 - 199 mg/dL Blood 11/21/2024 8:23 PM CDT 11/21/2024 8:23 PM CDT Shahnaz Heredia MD LAB POCT ORDERABLES - DEV ICE Final Result Performing Organization Address [facility] [place] [address] * POCT glucose (11/21/2024 5:24 PM CDT) Glucose, POC 188 70 - 199 mg/dL Blood 11/21/2024 5:24 PM CDT 11/21/2024 5:24 PM CDT Shahnaz Heredia MD LAB POCT ORDERABLES - DEV ICE Final Result Performing Organization Address [facility] Co de Phone Number [facility] [place] [address] * IR Angiogram Lower Extremity Right (11/21/2024 [...] was obtained. Prior to beginning the procedure, [place] Protocol was performed to confirm the patient's [...] of the patent vessel was recorded. The 5-Pakistani catheter was placed in the superficial femoral artery and the right lower extremity angiogram was performed in stations to the foot A 45 cm 6-Pakistani sheath was advanced to the superficial femoral [...] was obtained. Prior to beginning the procedure, [place] Protocol was performed to confirm the patient's [...] of the patent vessel was recorded. The 5-Pakistani catheter was placed in the superficial femoral artery and the right lower extremity angiogram was performed in stations to the foot A 45 cm 6-Pakistani sheath was advanced to the superficial femoral [...] it. Electronically signed by: Anthony Gorman M.D. Result [facility] Anthony Gorman MD IMG IR PROCEDURES Final Result * (ABNORMAL) POCT Activated clotting time, low range (11/21/2024 10:36 AM CDT) ACT 318(H) 123 - 168 sec POC Performer [id number] [facility] POC Device Number [id number] [facility] Blood 11/21/2024 10:3 6 AM CDT 11/21/2024 10:36 AM CDT Result [facility] Shahnaz Heredia MD LAB POCT ORDERABLES - DEV ICE Final Result Performing Organization Address [facility] Co de Phone Number [facility] [place] [address] * (ABNORMAL) POCT Activated clotting time, low range (11/21/2024 9:54 AM CDT) ACT 331(H) 123 - 168 sec POC Performer [id number] [facility] POC Device Number [id number] [facility] Blood 11/21/2024 9:54 AM CDT 11/21/2024 9:54 AM CDT Result [facility] Shahnaz Heredia MD LAB POCT ORDERABLES - DEV ICE Final Result Performing Organization Address [facility] Co de Phone Number [facility] [place] [address] * (ABNORMAL) POCT Activated clotting time, low range (11/21/2024 9:20 AM CDT) ACT 360(H) 123 - 168 sec POC Performer [id number] [facility] POC Device Number [id number] [facility] Blood 11/21/2024 9:20 AM CDT 11/21/2024 9:20 AM CDT Shahnaz Heredia MD LAB POCT ORDERABLES - DEV ICE Final Result Performing Organization Address [facility] Co de Phone Number GUILLERMINA [facility] [place] [address] * (ABNORMAL) eGFR (11/21/2024 6:31 AM CDT) [...] ORDERABLES Fi nal Result Performing Organization Address City/[facility]/ZIP Co de Phone Number [facility] [place] [address] * (ABNORMAL) Differential, auto (11/21/2024 6:31 AM CDT) Neutrophil abs 5.81 1.50 - 6.50 K/cumm Imm gran abs 0.03 0.00 - 0.10 K/cumm [facility] Lymphocyte abs 1.28 0.80 - 3.30 K/cumm [facility] Monocyte abs 0.89(H) 0.20 - 0.80 K/cumm [facility] Eosinophil abs 0.05 0.00 - 0.50 K/cumm [facility] Basophil abs 0.03 0.00 - 0.10 K/cumm [facility] Neutrophil pct 71.8 % [facility] Comment: Interpretive Data Percent cell count reference ranges are not reported, since discordance with absolute values may lead to misinterpretation of CBC data. Current Interpretive Data was last revised on 2017. Imm gran pct 0.4 % [facility] Comment: Interpretive Data Percent cell count reference ranges are not reported, since discordance with absolute values may lead to misinterpretation of CBC data. Current Interpretive Data was last revised on 2017. Lymphocyte pct 15.8 % [facility] Comment: Interpretive Data Percent cell count reference ranges are not reported, since discordance with absolute values may lead to misinterpretation of CBC data. Current Interpretive Data was last revised on 2017. Monocyte pct 11.0 % [facility] Comment: Interpretive Data Percent cell count reference ranges are not reported, since discordance with absolute values may lead to misinterpretation of CBC data. Current Interpretive Data was last revised on 2017. Eosinophil pct 0.6 % [facility] Comment: Interpretive Data Percent cell count reference ranges are not reported, since discordance with absolute values may lead to misinterpretation of CBC data. Current Interpretive Data was last revised on 2017. Basophil pct 0.4 % [facility] Comment: Interpretive Data Percent cell count reference ranges are not reported, since discordance with absolute values may lead to misinterpretation of CBC data. Current Interpretive Data was last revised on 2017. Blood 11/21/2024 6:31 AM CDT 11/21/2024 6:47 AM CDT us Anthony Gorman MD LAB BLOOD ORDERABLES Fi nal Result [facility] [place] [address] * (ABNORMAL) CBC with auto differential (11/21/2024 6:31 AM CDT) [facility] WBC 8.09 3.80 - 9.90 K/cumm Hgb 9.9(L) 11.9 - 15.5 g/dL [facility] Hct 32.3(L) 35.6 - 45.5 % [facility] Plt 134(L) 150 - 400 K/cumm [facility] MPV 12.6(H) 9.1 - 12.3 fL [facility] RBC 3.31(L) 3.90 - 5.20 M/cumm [facility] MCV 97.6(H) 81.3 - 96.4 fL [facility] MCH 29.9 27.1 - 33.3 pg [facility] MCHC 30.7(L) 32.3 - 35.7 g/dL [facility] RDW CV 17.2(H) 11.1 - 14.9 % [facility] RDW SD 60.4(H) 35.7 - 48.1 fL [facility] NRBC abs 0.02(H) 0.00 - 0.01 K/cumm [facility] Blood 11/21/2024 6:31 AM CDT 11/21/2024 6:47 AM CDT Anthony Gorman MD LAB BLOOD ORDERABLES Fi nal Result [facility] [place] [address] * (ABNORMAL) Lipid panel (11/21/2024 6:31 AM CDT) [facility] Cholesterol 99 30 - 199 mg/dL Comment: [...] revised on 2018. Triglycerides 90 <=149 mg/dL [facility] Comment: Interpretive Data Ages < or = [...] revised on 2018. HDL 35(L) >=40 mg/dL [facility] Comment: Interpretive Data Ages < or = [...] on 2018. LDL, calculated 46 <=129 mg/dL [facility] Comment: Interpretive Data Ages < or = 19 years Acceptable: <110 mg/dL Borderline high: 110-129 mg/dL High: >or= 130 mg/dL Ages > or = 20 years Optimal: <100 mg/dL Near optimal: 100-129 mg/dL Borderline high: 130-159 mg/dL High: >160 mg/dL Calculated using the [place] LDL-C estimating equation. This equation was implemented on 2024. Prior to this date LDL-C was estimated using the Friedewald equation. Literature References: 1. Expert Panel on Integrated Guidelines for Cardiovascular Health and Risk Reduction in Children and Adolescents. Pediatrics 2011;128:S213 2. NCEP Expert Panel. Circulation 2004;110:227 3. Harjinder M et al. ANTON Cardiol. 2020 November 06;5(5):540-548. doi: 10.1001/jamacardio.2020.0013 Current Interpretive Data was last revised on 2024. Non-HDL Cholesterol 64 mg/dL [facility] Comment: Interpretive Data Ages < or = [...] last revised on 2018. Chol/HDL ratio 3 [facility] Blood 11/21/2024 6:31 AM CDT 11/21/2024 6:47 AM CDT Anthony Gorman MD LAB BLOOD ORDERABLES Fi nal Result [facility] [place] [address] * (ABNORMAL) Basic metabolic panel (11/21/2024 6:31 AM CDT) Sodium 135 135 - 145 mmol/L Potassium, pl 4.9 3.3 - 4.9 mmol/L [facility] Chloride 92(L) 97 - 110 mmol/L [facility] CO2 32 22 - 32 mmol/L [facility] Anion gap 11 2 - 15 mmol/L [facility] BUN 50(H) 6 - 25 mg/dL [facility] Creatinine 5.26(H) 0.60 - 1.10 mg/dL [facility] Glucose 231(H) 70 - 199 mg/dL [facility] Comment: Interpretive Data Fasting glucose >/= 126 [...] 2022. Calcium 10.3 8.5 - 10.3 mg/dL [facility]MIN[facility] MCNA[facility] Blood 11/21/2024 6:31 AM CDT 11/21/2024 6:47 AM CDT Anthony Gorman MD LAB BLOOD ORDERABLES Fi nal Result [facility] [place] [address] * US MELISSA And Arterial Doppler Lower [...] DATE: 10/30/2024 2:00 PM HISTORY: Atherosclerosis of [place] Arteries of Extremities with Intermittent Cladication, Bilateral [...] DATE: 10/30/2024 2:00 PM HISTORY: Atherosclerosis of [place] Arteries of Extremities with Intermittent Cladication, Bilateral [...] DATE: 10/30/2024 2:00 PM HISTORY: Atherosclerosis of [place] Arteries of Extremities with Intermittent Cladication, Bilateral [...] DATE: 10/30/2024 2:00 PM HISTORY: Atherosclerosis of [place] Arteries of Extremities with Intermittent Cladication, Bilateral [...] Result * POCT glucose (08/29/2024 11:37 AM BOILER FIREMAN) Glucose, POC 110 70 - 199 mg/dL Blood 08/29/2024 11:3 7 AM BOILER FIREMAN 08/29/2024 11:37 AM BOILER FIREMAN Paulo Harper MD LAB POCT ORDERABLES - D EVICE Final Result [facility] [place] [address] * Hepatitis B Surface Antigen Blood (08/29/2024 8:36 AM BOILER FIREMAN) [facility] HepBsAg Nonreactive Nonreactive Blood 08/29/2024 8:36 AM BOILER FIREMAN 08/29/2024 8:48 AM BOILER FIREMAN Leoncio zaragoza MD LAB MICROBIOLOGY - GENERAL ORDERABLES Final Result [facility] [place] [address] * POCT glucose (08/29/2024 8:02 AM BOILER FIREMAN) Glucose, POC 149 70 - 199 mg/dL Blood 08/29/2024 8:02 AM BOILER FIREMAN 08/29/2024 8:02 AM BOILER FIREMAN Paulo Harper MD LAB POCT ORDERABLES - D EVICE Final Result Performing Organization Address [facility] Co de Phone Number [facility] [place] [address] * Hepatitis C antibody (08/19/2020 12:07 PM BOILER FIREMAN) [facility] Hep C Ab Nonreactive Nonreactive [facility] Comment:Antibodies to HCV no t detected. Does NOT exclude the possibility of recent exposure to HCV. Blood specimen (specimen) 08/19/2020 12:07 PM BOILER FIREMAN 08/19/2020 12:15 PM BOILER FIREMAN Result [facility] Humza Trevizo MD LAB MICROB IOLOGY - GENERAL ORDERABLES Edited Result - Final Performing Organization Address [facility] [place] [address] * (ABNORMAL) Hemoglobin A1c (09/04/2019 12:14 AM BOILER FIREMAN) [facility] Hgb A1C 8.2(H) 4.0 - 5.6 % [facility] Estimated Average Glucose 189 mg/dL [facility] Comment: The ADA recommends reporting an estimated Average Glucose (eAG) with all Hemoglobin A1c results using the equation derived from a study of 507 normal and diabetic adults. Minority populations were underrepresented and children were not included. (Diabetes Care 31:1499-2968, 2008). The eAG is not equivalent to a fasting glucose. Blood specimen (specimen) 09/04/2019 12:14 AM BOILER FIREMAN 09/04/2019 12:58 AM BOILER FIREMAN Result [facility] Brandin Pena MD LAB BLOOD ORDERABLES Final Result Performing Organization Address [facility] [place] [address] from Last 3 Months or Most Recently Relevant to Health Maintenance
--- OUTSIDE RECORDS SUMMARY | 2024-11-26 18:03 | XMS_ITS | CONTINUITY OF CARE DOCUMENT ---
Author Name narakana narakana Address Unknown Organization [facility] Address [address] [place] [address] Phone [phone] Care Team Providers Care Correctional Supervisor Name Role Phone Herbert Weller MD Unavailable [phone] NOY PENN MD Unavailable NOY PENN MD [...] In-person encounter Office Visit Herbert Weller MD [facility] [employer] History of Hypertension:Family History of Hypertension:PVDHypox iaHypertensionAtrial fibrillation VITAL SIGNS Date Observation Value Provider Body Mass Index (Ratio) 28.00 kg/m2 Sylvie Weller MD blood pressure, diastolic 52 mm[Hg] To reshma Negro blood pressure, systolic 81 mm[Hg] Ton jair Negro pulse rate 40 /min Anupama Negro oxygen saturation, oximetry 88 % Anupama Negro respiratory rate E&M 16 /min [facility] blood pressure, resting Yes [facility] height E&M 58 [in_i] [facility] weight E&M 134 [lb_av] [facility] temperature site temporal Shea Tank sley [...] required Harry Neal smoking status [facility] Family Member Condition Father Family History of Co ngestive Heart Failure: Father Family History of Hy pertension: Mother Family History of Hy pertension: Mother Family History of Di abetes: Mother Family History of De pression: INSURANCE PROVIDERS Payer name Policy type / Coverage type [place] red libertarian [employer] Medicaid 3 [id number] [facility] MEDICARE COMPLETE HMO Other [id number] ADVANCE DIRECTIVES Name Date DISCUSSED - [...]
--- OUTSIDE RECORDS SUMMARY | 2024-11-26 18:03 | XMS_ITS | Encounter Summary ---
Author Organization [facility] Health Address [address] [place] [address] Care Team Providers Care Roller Shop Supervisor Name Role Phone David Coppola MD Primary Care Provider + [phone] David Coppola MD Primary Care Provider + [phone] David Coppola MD Unavailable [phone] David Coppola MD Unavailable [phone] Virginie Corea RN Unavailable [phone] Encounter Details Date Type Department Care Team (Late Contact Info) Description 02/08/2015 [facility] Outpatient Visit EXTERNAL NON-[facility] DEPT David Buitrago MD [address] [place] [address] [address] [place] [phone] Social History Tobacco Use Types Packs/Day Years Used Date Smoking Tobacco: Never Alcohol Use Standard Drinks/Week Comments No 0 (1 standard drink = 0.6 oz pur e alcohol) Comments Unknown Sex and Gender Information Value Date Recorded Sex Assigned at Not on file 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 [address] [place] [address] Cristo Fontenot MD [address] [place] [address] 03/17/2025 1:00 PM CDT Procedure visit [facility] [address] [place] [address], [place] [phone] 03/17/2025 1:30 PM CDT Office Visit [facility] [address] [place] [phone] Avis Dumont, MARKETING AUTOMATION ANALYST-LAUNDRY MARKER SUPERVISOR [address] [place] [address] [place] [phone] documented as of this encounter Visit Diagnoses Not on filedocumented in this encounter Care Teams Roller Shop Supervisor Relationship Specialty Start Date End Date David Coppola MD [address] [place] [phone] PCP - General Family Medicine 02/08/15 08/14/16 David Coppola MD [address] [place] [phone] PCP - General 08/15/16 David Coppola MD [address] [place] [phone] Family Medicine 02/08/15 David Coppola MD [address] [place] [phone] Family Medicine 08/15/16 Virginie Corea, ABENA Maintenance Pipefitter 02/23/15 documented as of this encounter
--- NOTE | 2024-11-26 18:04 | ED.RECABL ---
HPI - Recheck/Abnormal Lab/Rx General Chief Complaint: Recheck/Abnormal Lab/Rx Stated Complaint: dialysis area bleeding Time Seen by Provider: 11/26/24 17:41 Source: patient Mode of arrival: EMS Limitations: no limitations History of Present Illness HPI narrative: This is a 79 year old female that presents to the ER for bleeding from dialysis fistula to the right arm. Reports they had some trouble getting the bleeding to stop at dialysis, but was able to get it under control. She then started bleeding again when she got home. Her home health aide called [phone] to bring her in for further care. Reports she was recently started on Plavix after a vascular procedure. Related Data Home Medications ?Medication ?Instructions ?Recorded ?Confirmed ?Last Taken ?Type acetaminophen 500 mg tablet See Rx Instructions PO Q4H PRN Pain 02/20/20 09/12/24 06/05/23 History (Acetaminophen Extra Strength) atorvastatin 40 mg tablet 40 mg PO DAILY 10/25/21 09/12/24 06/04/23 History vitamin B complex and vitamin C 1 cap PO DAILY 10/25/21 09/12/24 06/05/23 History no.20-folic acid 1 mg capsule (Renal Caps) liraglutide 0.6 mg/0.1 mL (18 mg/3 1.2 mg subcut HS 06/06/23 09/12/24 06/05/23 History mL) subcutaneous pen injector (Victoza 2-Agustín) clotrimazole 1 % topical cream 1 applic topical Q12H 09/27/23 09/12/24 07/30/24 History (Antifungal (clotrimazole)) lidocaine-prilocaine 2.5 %-2.5 % 1 applic topical ONCE 09/27/23 09/12/24 Unknown History topical cream biotin 5 mg capsule 5 mg PO DAILY 10/08/24 Unknown History carvedilol 12.5 mg tablet (Coreg) 6.25 mg PO BID 10/16/24 Unknown History lisinopril 10 mg tablet 10 mg PO DAILY 10/16/24 Unknown History Allergies Allergy/AdvReac Type Severity Reaction Status Date / Time cephalexin Allergy Mild Rash Verified 11/11/24 09:04 enalapril Allergy Unknown cough Verified 11/11/24 09:04 pioglitazone Allergy Unknown Unknown Verified 11/11/24 09:04 cefazolin AdvReac Mild nausea/dizz Verified 11/11/24 09:04 iness tramadol AdvReac Unknown hallucinati Verified 11/11/24 09:04 ons gabapentin AdvReac Hallucinati Verified 11/11/24 09:04 ng Review of Systems Review of Systems: All systems reviewed & are unremarkable except as noted in HPI and below [facility] Past Medical History Medical History (Updated 11/26/24 @ 19:31 by Belinda Perales PA-C) 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 Spinal stenosis at L4-L5 level High-grade central canal stenosis noted on MRI February 2017 Pulmonary hypertension Echocardiogram August 2019: EF 65-70 %, indeterminate left ventricular diastolic function, mild biatrial enlargement, mild mitral valve regurgitation, moderate tricuspid regurgitation, mild pulmonary hypertension with RVSP of 39 Hiatal hernia Thoracic ascending aortic aneurysm 4.[address] scan from August 2019 Anemia of chronic disease Megaloblastic anemia Paroxysmal atrial fibrillation Type 2 diabetes mellitus Hemoglobin A1c was 6.6 in July 2019. Hypertension Osteoporosis Hyperlipidemia AV fistula Left upper extremity End stage renal disease on dialysis Dialysis days are Sunday, Sunday, and Sunday. She is on the transplant list at [facility]. Osteoarthritis of both knees Staphylococcal septicemia (~2013) Closed fracture of lateral portion of right tibial plateau (~2014) Surgical History Surgical History (System 11/11/24 @ 09:04 by Pau Mcnamara) Amputated toe of left foot History of bilateral cataract extraction Amputation at midfoot 5th digit right footAnd the great toe on the left History of arthroplasty of right ankle Presence of Watchman left atrial appendage closure device History of arthroscopy (~12/07/12) wrist History of colonoscopy (~12/02/15) History of knee replacement (~2015) right Family History Family History (System 11/11/24 @ 09:04 by Pau Mcnamara) Father Hypertension Heart disease Mother Diabetes mellitus Hypertension Tobacco dependence Lung cancer Sibling Heart disease Social History Social History (System 11/11/24 @ 09:04 by Pua Mcnamara) Social History: The patient is and lives in [place]. She is originally from [place]. 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 She has 2 daughters who live in [place]. She has 1 son who lives in [facility] . She designates her daughters as her surrogate decision makers. She is a lifelong nonsmoker. No alcohol or drug abuse. Primary care physician: Dr. David Coppola Code status: Full code Smoking status: Never smoker Second hand tobacco smoke exposure: No Alcohol intake: former Substance use: never Substance use type: does not use Do You Feel Safe in your Home?: Yes Lack of Transportation: No Lack of Food: Never True Current Housing: I Do Not Have Housing Concerned About Future Housing: No Difficulty Paying Gas/Electric Bills: No Difficulty Paying for Meds: No Currently Unemployed: No Education: High School Diploma/GED Difficulty w/ Childcare or Family Care: No Gender identity (if verbalized by the patient): Female Spiritual care concerns: No Agree to blood products: Yes Exam Narrative: GENERAL: Well-appearing, well-nourished, and in no acute distress. HEAD: Normocephalic, atraumatic. EYES: EOMI. CHEST: Clear to auscultation. No respiratory distress. No wheezes rales or rhonchi HEART: Regular rate and rhythm. No murmur heard. Normal peripheral pulses. EXTREMITIES: Normal range of motion. No edema. Kerlix in place to the right upper arm, no active bleeding through the bandage. Normal radial pulse. Normal capillary refill SKIN: Warm, dry, no rash. NEURO: No focal deficits. Alert and oriented x3. PSYCH: Normal mood and affect Course Vital Signs Vital signs: Vital Signs Temperature 97.6 F 11/26/24 17:26 Pulse Rate 66 11/26/24 17:26 Respiratory Rate 18 11/26/24 17:26 Blood Pressure 137/60 11/26/24 17:26 Pulse Oximetry 95 11/26/24 17:26 Oxygen Delivery Room Air 11/26/24 17:26 Temperature 97.6 F 11/26/24 17:26 Pulse Rate 66 11/26/24 17:26 Respiratory Rate 18 11/26/24 17:26 Blood Pressure 137/60 11/26/24 17:26 Pulse Oximetry 95 11/26/24 17:26 Oxygen Delivery Room Air 11/26/24 17:26 MDM - Recheck/Abnormal Lab/Rx MDM Narrative Medical decision making narrative: Patient presents to the ER for bleeding dialysis fistula. Bleeding was controlled upon her arrival via pressure dressing by EMS. This was removed and re-bandaged. No further bleeding at this time. Her vitals are stable. Hemoglobin appears around baseline. Will keep dressing in place until her dialysis on Sunday Medical Records Attestation: I reviewed the patient's medical records. Lab Data Attestation: I reviewed the patient's lab results. 11/26/24 18:31 11/26/24 18:31 Labs: Lab Results 11/26/24 Range/Units 18:31 WBC 6.3 (4.5-10.0) K/mm3 RBC 2.73 L (4.2-5.4) M/mm3 Hgb 8.2 L (12.0-15.0) g/dL Hct 28.0 L (37.0-47.0) % MCV 102.6 H (80-100) fl MCH 30.0 (26-34) pg MCHC 29.3 L (32-36) g/dl RDW 17.8 H (11.5-14.5) % Plt Count 138 L (150-375) k/mm3 MPV 11.6 H (7.4-10.4) fl Immature Gran % (Auto) 0.8 H (0-0.5) % Neut % (Auto) 67.5 (45.5-73.1) % Lymph % (Auto) 17.2 L (18.3-44.2) % Hitchcock % (Auto) 11.3 H (2.6-8.5) % Eos % (Auto) 2.7 (0-4.4) % Baso % (Auto) 0.5 (0.2-1.2) % Lymph # (Auto) 1.08 (0.9-3.2) K/mm3 Hitchcock # (Auto) 0.7 H (0.1-0.6) K/mm3 Eos # (Auto) 0.2 (0-0.3) K/mm3 Baso # (Auto) 0.0 (0.0-0.1) K/mm3 Abs Immat Gran (auto) 0.05 H (0.00-0.031) K/mm3 Absolute Neuts (auto) 4.3 (1.3-6.7) K/mm3 Absolute Nucleated RBC 0.000 (0.0-0.012) K/mm3 Band Neutrophils % 0 (0-6) % Nucleated RBC % 0.0 (0.0-0.2) % Platelet Estimate Slightly decreased (Adequate) Hypochromasia 1+ Anisocytosis 2+ Schistocytes None seen PT 15.5 H (11.1-14.7) Seconds INR 1.2 APTT 30.5 (22.3-36.8) Seconds Sodium 136 L (137-145) mmol/L Potassium 4.0 (3.4-5.0) mmol/L Chloride 95 L (98-107) mmol/L Carbon Dioxide 34 H (22-30) mmol/L Anion Gap 7 (4-12) mmol/L BUN 31 H (7-17) mg/dL Creatinine 2.86 H (0.7-1.0) mg/dL Estim Creat Clear Calc Not Reportable Estimated GFR 16 L (59 - ) Glucose 87 (65-110) mg/dL Calcium 8.7 (8.4-10.2) mg/dL Blood Type O Positive Antibody Screen Negative Critical Care Time Critical Care Time Critical Care Time: No Discharge Plan Discharge Clinical Impression: Complication of AV dialysis fistula Qualifiers: Encounter type: initial encounter Qualified Code(s): T82.9XXA - Unspecified complication of cardiac and vascular prosthetic device, implant and graft, initial encounter Patient Disposition: Home Condition: Stable Additional Instructions: Return to the emergency department if you experience fever, redness and swelling of your arm, bleeding you are unable to control, or any other symptoms that are concerning to you You may leave your bandage in place until your dialysis on Sunday Patient Language: Qatari Prescriptions: No Action atorvastatin 40 mg tablet 40 mg PO DAILY Renal Caps 1 mg capsule 1 cap PO DAILY dicyclomine 10 mg capsule See Rx Instructions .ROUTE .COMPLEX Qty: 60 5RF Dose Instruction: TAKE 1 CAPSULE BY MOUTH TWICE DAILY NEEDED FOR ABDOMINAL PAIN Rx Instructions: TAKE 1 CAPSULE BY MOUTH TWICE DAILY NEEDED FOR ABDOMINAL PAIN Prolia 60 mg/mL syringe 60 mg subcut [id number] Qty: 1 1RF Patient Comments: Due this month (May). Gets from primary care Doctor. can have caregiver bring in clotrimazole [Antifungal (clotrimazole)] 1 % cream 1 applic topical Q12H lidocaine-prilocaine 2.5-2.5 % cream 1 applic topical ONCE trazodone 50 mg tablet 100 mg PO QHS Qty: 180 1RF ergocalciferol (vitamin D2) 1,250 mcg (50,000 unit) capsule See Rx Instructions .ROUTE .COMPLEX Qty: 13 2RF Dose Instruction: Take 1 capsule by mouth once a week Rx Instructions: Take 1 capsule by mouth once a week liraglutide [Victoza 2-Agustín] 0.6 mg/0.1 mL (18 mg/3 mL) pen injector 1.2 mg subcut HS Rx Instructions: INJECT 1.8 MG (0.3 ML) SUB-Q AT BEDTIME. For diabetes acetaminophen [Acetaminophen Extra Strength] 500 mg Tablet See Rx Instructions PO Q4H PRN (Reason: Pain) Rx Instructions: 325 orally every 4 hours PRN; (DME) blood sugar diagnostic Strip See Rx Instructions .ROUTE .MEDSUPPLY Qty: 500 3RF Rx Instructions: As directed test 6 x day (DME) hortencia strickland See Rx Instructions .Route .MEDSUPPLY Qty: 1 0RF Rx Instructions: As directed insulin degludec [Tresiba FlexTouch U-100] 100 unit/mL (3 mL) insulin pen 10 unit subcut HS Qty: 15 3RF (DME) Assited gait device See Rx Instructions .Route .MEDSUPPLY Qty: 1 0RF Rx Instructions: Fer Strickland pantoprazole 40 mg tablet,delayed release (DR/EC) 40 mg PO Q12HR Qty: 60 5RF Januvia 100 mg tablet 100 mg PO DAILY Qty: 90 1RF (DME) pen needle, diabetic 32 gauge x / needle See Rx Instructions .ROUTE .COMPLEX Qty: 100 3RF Dose Instruction: USE DIRECTED Rx Instructions: USE DIRECTED biotin 5 mg capsule 5 mg PO DAILY (DME) blood sugar diagnostic Strip See Rx Instructions .Route Qty: 500 2RF Rx Instructions: Use to check blood sugars 6 times a day carvedilol [Coreg] 12.5 mg tablet 6.25 mg PO BID Rx Instructions: must administer with a meal/food lisinopril 10 mg tablet 10 mg PO DAILY tenofovir alafenamide 25 mg tablet 25 mg PO DAILY Qty: 90 2RF Rx Instructions: Take every day at suppertime with the meal Follow-up/Referrals: David Coppola MD [Primary Care Provider] -
--- OUTSIDE RECORDS SUMMARY | 2024-11-26 18:04 | XMS_ITS | Data Portability ---
Author Organization [employer] [facility], Main Office Address [address] [place] [id number] Care Team Providers Care Tool Worker Name Role Phone P [facility] FAX OTHER [place] Primary Care Provider [phone] Assessment Encounter Date Assessment Date Assessment LastModified by Organization Details LastModified Time 08/19/2024 08/19/2024 Add colace. Caregiver has been in contact with pt's daughter, who will bring home med list in for our reconciliation. Not available 08/19/2024 13:13:34 08/26/2024 08/26/2024 Add PRN Preparation H. Add PRN Melatonin. Change Colace to Senna Plus daily. Not available 08/26/2024 11:29:04 09/01/2024 09/01/2024 Add back baby ASA daily. Not available 09/01/2024 14:03:08 09/02/2024 09/02/2024 f/u CBC is ordered for 09/04 [email or web address] Not available 09/04/2024 06:09:59 09/08/2024 09/08/2024 Pt has been issued a LCD on [employer] services for today. She filed a first appeal and lost. She has since filed a 2nd level appeal with determination pending. Not available 09/09/2024 08:55:16 Plan of Treatment Reminders Order Date Submit Date Provider Last Modified By Organization Details Last Modified Time Details Appointments None record ed. Lab None record ed. Referral None record ed. Procedures None record ed. Surgeries None record ed. Imaging None record ed. Medication Orders None record ed. Patient TargetsNo targets recorded. Patient Instructions Encounter Date Encounter Id Patient Instructions Last Modified By Organization Details Last Modified Time 08/19/2024 [id number] I spent {{ 33#}} minutes providing care to the patient today. More than 50% of that time was spent in discussing the expected course of the disease, discussing prognosis, coordinating care and counseling of the patient/family. [email or web address] Not available 08/19/2024 13:14:05 08/26/[id number] I spent {{ 36#}} minutes providing care to the patient today. More than 50% of that time was spent in discussing the expected course of the disease, discussing prognosis, coordinating care and counseling of the patient/family. Not available 08/26/2024 11:29:08 09/01/2024 [id number] I spent {{ 48#}} minutes providing care to the patient today. More than 50% of that time was spent in discussing the expected course of the disease, discussing prognosis, coordinating care and counseling of the patient/family. [email or web address] Not available 09/01/2024 14:02:49 09/02/[id number] I spent 16 minutes counseling and discussing advance directives and/or end of life care planning and decisions with the patient and surrogate today. I reviewed the current relevant diagnoses, treatment options, natural history, and prognosis and clarified the patient's goals of care. code status is full [email or web address] Not available 09/04/2024 06:19:59 09/08/2024 [id number] I spent {{ 40#}} minutes providing care to the patient today. More than 50% of that time was spent in discussing the expected course of the disease, discussing prognosis, coordinating care and counseling of the patient/family. The patient will be discharged home with home health orders of home health RN / PT / OT to evaluate and treat. The patient is homebound because of {{gait instability poor balance fall risk* respiratory difficulties cogn itive impairment disori entation severe pain wounds}} and is unable to leave home safely because {{requires use of an assistive device and assistance of another person to leave home requires considerable and taxing effort to leave home* of cognitive impairment}}. The patient requires home health nursing for instruction, observation and assessment; PT for training to restore safe independent functional ambulation in community; and OT for training to improve ability to fulfill ADLs. Please follow-up with your primary care provider within 1 week. Call your primary care provider for instructions or go to the emergency room for new or worsening symptoms. Not available 09/08/2024 15:26:09 Reason for Referral None Reported. Results Created Date Observation Date Name Description Value Unit Range Abnormal Flag Note LastModifiedBy Organization Detail LastModifiedTime Result Notes None recorded. Procedures Surgical History Date Name Laterality Status Provider Name and Address Organization Details Recorded Time 07/09/19 19 left atrial appendage [place] [address] [place], [address], [facility] 09/01/2024 13:34:59 07/09/19 18 fluoroscopy guided percutaneous transluminal angioplasty of anterior tibial artery [place] [address] [place], [address], [facility] 09/01/2024 13:35:38 amputation [place] [address] [place], [address], [facility] 08/19/2024 05:12:33 cardiac ablation for atrial [place] [address] [address] [facility], [place], [address], [facility] 09/01/2024 13:34:55 Av fistula [place] [address] [address] [facility], [place], [address], [facility] 09/01/2024 13:35:27 angioplasty of blood [place] [address] [place], [address], [facility] 09/01/2024 13:42:18 Imaging Results None recorded. Procedure Notes None recorded. Medical Equipment None Reported. Allergies Allergen ID Allergen Name Allergen Category Reaction Reaction Severity Criticality Documentation Date Start Date Code Code System Note Provider Name and Address Organization Details Recorded Time 44878 cefazolin medicatio n Not available Not available Not available 08/16/2024 2180 RxNorm [place], [facility] 06:16:17 19649 enalapril Not available Not available Not available Not available 08/16/2024 3827 RxNorm Yfn [place], [place] - [facility] 5 06:16:26 77005 pioglitaz one medicatio n Not available Not available Not available 08/16/2024 10508 RxNorm Yfn [place], [place] - [facility] 5 06:16:35 90983 tramadol medicatio n Not available Not available Not available 08/16/2024 68342 RxNorm [place], [place] - [facility] 5 06:16:45 14603 cephalexi n medicatio n Not available Not available Not available 08/17/2024 2231 RxNorm [place], [place] - [facility] 5 21:18:22 43337 gabapenti n medicatio n Not available Not available Not available 08/17/2024 00599 RxNorm [place], [place] - [facility] 5 21:18:33 Medications Name Sig Start Date Stop Date Status Note LastModified by Organization Details LastModified Time Santyl 250 unit/gram topical ointment Apply 1 applicati on every day by topical route. active Not Available Not Available No t Available Preparation H Hydrocortis one 1 % topical cream Apply 1 applicati on 4 times a day by topical route as needed. 08/30 completed Not Available Not Available Not Available Miralax 17 gram/dose oral powder Take 17 g every day by oral route as needed. active Not Available Not Available No t Available atorvastati n 40 mg tablet Take 1 tablet every day by oral route. active Not Available Not Available No t Available Colace 100 mg capsule Take 1 capsule every day by oral route. 08/26 completed Not Available Not Available Not Available acetaminoph en 325 mg tablet Take 1 tablet every 4 hours by oral route as needed. 08/30 completed Not Available Not Available Not Available trazodone 50 mg tablet Take 2 tablets every day by oral route at bedtime. active Not Available Not Available No t Available sevelamer HCl 800 mg tablet Take 1 tablet 3 times a day by oral route. active Not Available Not Available No t Available senna 8.6 mg tablet Take 1 tablet every day by oral route. 09/01 completed Not Available Not Available Not Available famotidine 40 mg tablet Take 1 tablet every day by oral route. 09/01 completed Not Available Not Available Not Available coenzyme Q10 10 mg capsule Take 1 capsule by oral route. 09/01 completed Not Available Not Available Not Available Nexium 40 mg capsule,del ayed release Take 1 capsule every day by oral route. 09/01 completed Not Available Not Available Not Available melatonin 3 mg tablet Take 1 tablet every day by oral route as needed. active Not Available Not Available No t Available clopidogrel 75 mg tablet Take 1 tablet every day by oral route. active Not Available Not Available No t Available aspirin 81 mg tablet,jan yed release Take 1 tablet every day by oral route. 09/08 completed Not Available Not Available Not Available carvedilol 3.125 mg tablet Take 1 tablet twice a day by oral route. active Not Available Not Available No t Available lidocaine-p rilocaine 2.5 %-2.5 % topical cream Apply 1 applicati on every day by topical route. 08/30 completed Not Available Not Available Not Available cyanocobala min (vit B-12) 500 mcg tablet Take 1 tablet by oral route. active Not Available Not Available No t Available pantoprazol e 40 mg tablet,jan yed release Take 1 tablet twice a day by oral route. active Not Available Not Available No t Available tobramycin 0.3 % eye drops Instill 2 drops every 4 hours by ophthalmi c route. 09/04 completed Not Available Not Available Not Available calcium 200 mg (as calcium carbonate 500 mg) chewable tablet Take 3 tablets 3 times a day by oral route. active Not Available Not Available No t Available aspirin 81 mg chewable tablet Chew 1 tablet every day by oral route. 09/01 completed Not Available Not Available Not Available ergocalcife rol (vitamin D2) 1,250 mcg (50,000 unit) capsule Take 1 capsule every week by oral route. active Not Available Not Available No t Available ondansetron 4 mg disintegrat ing tablet Place 2 tablets every 6 hours by transling ual route as needed. active Not Available Not Available No t Available clotrimazol e 1 % topical cream Apply 1 applicati on twice a day by topical route. active Not Available Not Available No t Available acetaminoph en 500 mg capsule Take 2 capsules every 6 hours by oral route as needed. active Not Available Not Available No t Available dicyclomine 10 mg capsule Take 1 capsule twice a day by oral route as needed. 08/30 completed Not Available Not Available Not Available Senna Plus 8.6 mg-50 mg tablet Take 1 tablet every day by oral route as needed. 2024 active Not Available Not Available Not Avai lable cinacalcet 30 mg tablet Take 1 tablet every day by oral route. 09/01 completed Not Available Not Available Not Available Januvia 100 mg tablet Take 1 tablet every day by oral route. active Not Available Not Available No t Available Renvela 800 mg tablet Take 1 tablet 3 times a day by oral route. 09/01 completed Not Available Not Available Not Available Humalog KwikPen (U-100) Insulin 100 unit/mL subcutaneou s Inject 0-12 units by subcutane ous route three times a day with meals as needed per sliding scale. 2024 active Not Available Not Available Not Avai lable Triphrocaps 1 mg capsule Take 1 capsule every day by oral route. active Not Available Not Available No t Available liraglutide 0.6 mg/0.1 mL (18 mg/3 mL) subcutaneou s pen injector Inject 1.8 mg every day by subcutane ous route. active Not Available Not Available No t Available Hemorrhoida l(phenyleph -min oil-petrola t)0.25 %-14 %-74.9 % rectal oint Insert 1 applicati on 4 times a day by rectal route as needed. active Not Available Not Available No t Available dicyclomine 10 mg tablet Take 1 tablet twice a day by oral route as needed. active Not Available Not Available No t Available Tresiba FlexTouch U-100 insulin 100 unit/mL (3 mL) subcutaneou s pen Inject 10 units every day by subcutane ous route. active Not Available Not Available No t Available lidocaine 2.5 %-prilocain e 2.5 % dental cartridge Take 1 applicati on 3 times a week by dental route. active at HD Not Available Not Available No t Available Vitals Date Recorded Body height Heart rate Body temperature Respiratory rate Oxygen saturation Oxygen saturation in Arterial blood by Pulse oximetry Systolic blood pressure Diastolic blood pressure Provider Name and Address Organization Details Last Updated DateTime 5 152.4 cm 81 /min 97.8 [degF] 19 /min 96 % 96 % 103 mm[Hg] 43 mm[Hg] [place] [address] [place], [address], [place] - [facility] 5 12:48:20 Date Recorded Body height Heart rate Body temperature Respiratory rate Oxygen saturation Oxygen saturation in Arterial blood by Pulse oximetry Body mass index (BMI) Body weight Systolic blood pressure Diastolic blood pressure Provider Name and Address Organization Details Last Updated DateTime 5 152.4 cm 65 /min 98.5 [degF] 20 /min 97 % 97 % 22.7 kg/m2 28459.1 5 g 134 mm[Hg] 53 mm[Hg] [place] [address] [place], [address], [place] - [facility] 5 10:44:20 Date Recorded Body height Heart rate Body temperature Respiratory rate Oxygen saturation Oxygen saturation in Arterial blood by Pulse oximetry Body mass index (BMI) Body weight Systolic blood pressure Diastolic blood pressure Provider Name and Address Organization Details Last Updated DateTime 5 152.4 cm 75 /min 97.8 [degF] 18 /min 90 % 90 % 22.3 kg/m2 95918.5 3 g 144 mm[Hg] 57 mm[Hg] [place] [address] [place], [address], [place] - [facility] 5 12:48:29 Date Recorded Body height Heart rate Body temperature Respiratory rate Oxygen saturation Oxygen saturation in Arterial blood by Pulse oximetry Body mass index (BMI) Body weight Systolic blood pressure Diastolic blood pressure Provider Name and Address Organization Details Last Updated DateTime 5 152.4 cm 69 /min 98.4 [degF] 18 /min 94 % 94 % 22.3 kg/m2 19498.5 3 g 122 mm[Hg] 40 mm[Hg] [place] [address] [place], [address], [place] - [facility] 5 06:10:21 Date Recorded Body height Heart rate Body temperature Respiratory rate Oxygen saturation Oxygen saturation in Arterial blood by Pulse oximetry Body mass index (BMI) Body weight Systolic blood pressure Diastolic blood pressure Provider Name and Address Organization Details Last Updated DateTime 152.4 cm 78 /min 98.5 [degF] 18 /min 93 % 93 % 22.4 kg/m2 77580.6 9 g 156 mm[Hg] 76 mm[Hg] Florencia Ceron, NIKO [address] [place], [address], [place] - [facility] 15:15:43 Social History Question Answer Notes LastModified by [employer] Details LastModified Time Tobacco Smoking Status Never Smoker Alena Toña, [address] [place], [address], [facility] - [facility] 09/04/2024 05:14:35 What Is Your Code Status? Full Code [email or web address] Information not available 08/17/2024 Sex: Unknown Functional Status Question Answer Note LastModified by [employer] Details LastModified Time Do you use any illicit or recreational drugs? No Information not available 09/04/2024 What is your level of alcohol consumption? None Information not available 09/04/2024 Mental Status None recorded. Family History Relationship Description Onset Age of this Age Resolved Age Notes LastModified by Organization Details LastModified Time Father No current problems or disability [email or web address] Not available 08/19 06:27:24 Father Hypertensive disorder [email or web address] Not available 2024 05:13:06 Father Heart disease [email or web address] Not available 2024 05:14:02 Mother No current problems or disability [email or web address] Not available 08/19 06:27:24 Mother Hypertensive disorder [email or web address] Not available 2024 05:13:27 Mother Diabetes mellitus [email or web address] Not available 2024 05:13:43 Medical History Condition Response Osteoporosis / Osteopenia Y Diabetes Y Atrial Fibrillation Y Chronic Kidney Disease (CKD) Y Hyperlipidemia Y Orthostatic Hypotension Y End Stage Renal Disease (ESRD) Y Anemia Y Constipation Y Vitamin B12 Deficiency Y Peripheral Vascular Disease (PVD) Y Gynecological HistoryNo gynecological history recorded. Obstetrics History GPAL:G 0 P 0 0 0 0 Past Encounters Encounter ID Performer Location Encounter Start Date Encounter Closed Date Diagnosis/Indication Diagnosis SNOMED-CT Code Diagnosis ICD10 Code Diagnosis Note [id number] Alena Toña, DO [facility] [address] [place] [address] 08/17/2024 18:45:13 09/01/2024 12:09:56 Respiratory syncytial virus infection 02062657 B97.4 treated with a prednisone taper, duonebs, decongesta nts during her hospitaliz ationrespi ratory symptoms are now resolved and supportive meds have been discontinu edO2 has been weanedmoni tor clinically Pneumonia 685700307 J18. 9 She was treated with Levaquin and flagyl during her hospitaliz ationOf note, amoxicilli n was ordered per hospital discharge orders which was an error per Dr. Rosario the dischargin g hospitalis tO2 has been weaned and will monitor for continued need End stage renal failure on dialysis 944168278 N18.6 continue HD at [facility] M/W/FNephr ologist is Daniela Hyperlipidemia 34626712 E78.5 presumed stable - continue statin therapy Peptic ulcer 90605437 K2 7.9 history of GI bleed 2017 related to NSAIDS and ACshe continues on high dose PPI therapyshe reports she has frequent nausea and vomiting - adding prn zofran Atrial fibrillation 4943 6004 I48.91 previously had a watchman procedure - sounds as though she remain in afib at this timecontin ue coreg for rate controlshe is NOT on oral anticoagul ation due to history of GI bleeding and PUD Acute hypo xemic respiratory failure 232248459 J96.01 related to above as well as volume overloadSh e required supplement al O2 and intermitte nt bipap while hospitaliz ed - both are now weaned and respirator y status appears stable - monitor clinically Diabetes mellitus 175392 09 E11.51 HbA1c during her hospitaliz ation was 7.1 (per physician progress note dated 08/11/24)She was treated with only SSI while hospitaliz edresumed tresiba and Victoza last evening, continue daily Januvia as wellwill trend accuchecks and add SSI if needed while here Deep tissu e pressure injury 623484570 T14.8XXA noted to the right lateral heel on admission to last eveninghee l protectors , skin prep daily, offload pressure and monitor closelyper nursing, she also has some superficia l wounds to the buttocks - SWM will be consulted and follow while here Major depr essive disorder 576200843 F32.9 continue trazodonev enlafaxine is noted on inpatient medication list but not continued on discharge - will need to clarify these meds with PCP Vitamin deficiency 89220 002 E56.9 continue Vitamin D and B12 replacemen t Irritable bowel syndrome 98313669 K58.9 continue prn dicyclomin e Peripheral vascular disease 643204617 I73.9 she has previously required toe amputation s to the bilateral feet and angioplast y to the LLEshe follows routinely with podiatry - does not follow regularly with vascular at this pointconti nue to monitor LE closely - continue statin therapy and good blood pressure controlshe does not take oral AC or antiplatel et meds due to Gi bleeding/P UD Hypertensi ve renal disease 84039850 I12.9 continue coregtrend pressures/ adjust meds as clinically indicated Physical deconditioning 6920274110 9102 R68.89 related to advanced age, comorbidit ies and recent RSV infection/ pneumoniat herapies will be initiated - she will return home with her children upon d/c from [id number] Alena Ding, DO [address] [address] 08/19/2024 10:06:34 09/01/2024 11:41:20 Respiratory syncytial virus infection 76188978 B97.4 Treated with a prednisone taper, duonebs, and decongesta nts during her hospitaliz ation.Resp iratory symptoms are now resolved and supportive meds have been discontinu ed.O2 has been weaned.Reji ramirez clinically . Pneumonia 544596938 J18. 9 She was treated with Levaquin and Flagyl during her hospitaliz ation.Of note, Amoxicilli n was ordered per hospital discharge orders which was an error per Dr. Rosario the dischargin g hospitalis t.O2 has been weaned and will monitor for continued need. Acute hypo xemic respiratory failure 452454375 J96.01 Related to above as well, as volume overload.S he required supplement al O2 and intermitte nt bipap while hospitaliz ed -- both are now weaned and respirator y status appears stable. Monitor clinically . End stage renal failure on dialysis 947839950 N18.6 Continue HD at [facility] in [place] on M/W/F.Cont inue [place]. F/U with Nephrologi st Dr. Suarez as directed. Hyperlipidemia 85925887 E78.5 Presumed stable. Continue statin. Peptic ulcer 12607389 K2 7.9 History of GI bleed 2017 related to NSAIDS and OAC.She continues on high dose PPI therapy.Marina borrero reports she has frequent nausea and vomiting. None since last visit. Continue PRN Zofran. Atrial fibrillation 4943 6004 I48.91 Previously had a watchman procedure - sounds as though she remains in afib at this time.Stabl e. Continue Coreg for rate control.Marina borrero is NOT on oral anticoagul ation due to history of GI bleeding and PUD. Diabetes mellitus 037437 09 E11.51 HbA1c during her hospitaliz ation was 7.1% (per physician progress note dated 08/11/24).Marina borrero was treated with only SSI while hospitaliz ed.Resumed Tresiba, Victoza, and Januvia upon arrival here.Trend accuchecks and add SSI if needed while here.Famil y is to bring in home medication list for reconcilia tion. Deep tissu e pressure injury 783410802 T14.8XXA Noted to the right lateral heel on admission to .Continu e heel protectors , skin prep , offload pressure, and monitor closely.Pe r nursing, she also has some superficia l wounds to the buttocks.S WM consulted and follow while here. Major depr essive disorder 203330542 F32.9 Stable. Continue Trazodone. Venlafaxin e is noted on inpatient medication list but not continued on discharge. Caregiver has been in contact with pt's daughter, who will bring home med list in for our reconcilia tion. Vitamin deficiency 97019 002 E56.9 Presumed stable. Continue Vitamin D, Calcium, and B12 replacemen t. Irritable bowel syndrome 67278090 K58.9 with chronic diarrhea per pt. Continue PRN Dicyclomin e.Actually constipate d at present. Add Colace daily. Peripheral vascular disease 952405189 I73.9 Previously required toe amputation s to the bilateral feet and angioplast y to the LLE.Follow s routinely with podiatry. Does not follow regularly with vascular at this point.Cont inue to monitor LE closely.Co ntinue statin and good blood pressure control.Marina borrero does not take oral AC or antiplatel et meds due to GI bleeding/P UD. Hypertensi ve renal disease 06695421 I12.9 Stable. Continue Coreg.Cont inue to trend blood pressures, monitor lytes and renal function, and adjust meds as clinically indicated. Physical deconditioning 1815899997 9102 R68.89 Related to advanced age, comorbidit ies and recent RSV infection/ pneumonia. Therapies will be initiated. She will return home with her children upon d/c from . Candidiasis of skin 4988 3006 B37.2 Stable. Continue Clotrimazo le cream. [id number] Alena Ding, [address] [address] 08/26/2024 08:27:00 09/01/2024 11:42:01 End stage renal failure on dialysis 333701377 N18.6 Continue HD at [facility] on //.Cont inue [facility]. F/U with Nephrologi st Dr. Suarez as directed. Hypertensi ve renal disease 27370490 I12.9 Stable. Continue Coreg.Cont inue to trend blood pressures, monitor lytes and renal function, and adjust meds as clinically indicated. Hyperlipidemia 84029962 E78.5 Presumed stable. Continue statin. Atrial fibrillation 4943 6004 I48.91 Previously had a watchman procedure - sounds as though she remains in afib at this time.Stabl e. Continue Coreg for rate control.Marina borrero is NOT on oral anticoagul ation due to history of GI bleeding and PUD. Diabetes mellitus 661077 09 E11.51 HbA1c during her hospitaliz ation was 7.1% (per physician progress note dated 08/11/24).Marina borrero was treated with only SSI while hospitaliz ed.Resumed Tresiba, Victoza, and Januvia upon arrival here. Does continue on SSI. Peripheral vascular disease 320453196 I73.9 Previously required toe amputation s to the bilateral feet and angioplast y to the LLE.Follow s routinely with podiatry. Does not follow regularly with vascular at this point.Cont inue to monitor LE closely.Co ntinue statin and good blood pressure control.Marina borrero does not take oral AC or antiplatel et meds due to GI bleeding/P UD. Deep tissu e pressure injury [id number] T14.8XXA Noted to the right lateral heel on admission to [facility].Continu e heel protectors , offload pressure, and monitor closely.Cu rrently treating with skin prep.SWM consulted and follow while here. Peptic ulcer 11189805 K2 7.9 History of GI bleed 2017 related to NSAIDS and OAC.She continues on high dose PPI therapy.Marina borrero reports she has frequent nausea and vomiting. None since last visit. Continue PRN Zofran. Irritable bowel syndrome 18502522 K58.9 with chronic diarrhea per pt. Continue PRN Dicyclomin e.Actually constipate d at present. Add Colace daily. Major depr essive disorder 241404800 F32.9 Venlafaxin e is noted on inpatient medication list but not continued on discharge. 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 Vitamin deficiency 75611 002 E56.9 Presumed stable. Continue Vitamin D, Calcium, and B12 replacemen t. Respirator y syncytial virus infection 05560504 B97.4 Treated with a prednisone taper, duonebs, and decongesta nts during her hospitaliz ation.Resp iratory symptoms are now resolved and supportive meds have been discontinu ed.O2 has been weaned.Mon itor clinically . Pneumonia [id number] J18. 9 She was treated with Levaquin and Flagyl during her hospitaliz ation.Of note, Amoxicilli n was ordered per hospital discharge orders which was an error per Dr. Rosario the dischargin g hospitalis t.O2 has been weaned and will monitor for continued need. Acute hypo xemic respiratory failure 111398590 J96.01 Related to above as well, as volume overload.S he required supplement al O2 and intermitte nt bipap while hospitaliz ed -- both are now weaned and respirator y status appears stable. Monitor clinically . Physical deconditioning [id number] 9102 R68.89 Related to advanced age, comorbidit ies and recent RSV infection/ pneumonia. Therapies will be initiated. She will return home with her children upon d/c from [facility]. Candidiasis of skin 4988 3006 B37.2 Stable. Continue Clotrimazo le cream. Hemorrhoids 72973585 K64 .9 Improved since addition of Colace.Add PRN Preparatio n H. Insomnia 024932228 G47.0 0 Pt takes Trazodone as OP. Confirmed today dose is 100 mg qhs.Add PRN Melatonin. 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 She has roho w/c pad and air mattress.S WM is following weekly. [id number] Alena Ding, [address] [address] 09/01/2024 12:41:19 09/15/2024 21:18:48 Peripheral arterial occlusive disease 800369718 I73.9 Previously required toe amputation s to the bilateral feet and angioplast y to the LLE.On 08/28/24 = S/P balloon angioplast y of [R] anterior and posterior tibial, peroneal, and lateral plantar arteries per Dr. Boo without postoperat glen complicati ons.Contin ue dry dressing daily until healed.Con tinues on baby ASA daily & Plavix (new). Monitor for bleeding given hx of PUD with GIB while on Plavix previously . Continue high-dose PPI.Contin ue statin and good blood pressure control.Co ntinue to monitor LE closely.Sh e will f/u with vascular on 11/11.Also follows routinely with podiatry. End stage renal failure on dialysis 556135685 N18.6 Continue HD at [facility] on M//.Cont inue Sevelamer. F/U with Nephrologi st Dr. Suarez as directed. Hypertensi ve renal disease 87991185 I12.9 Stable. Continue Coreg.Cont inue to trend blood pressures, monitor lytes and renal function, and adjust meds as clinically indicated. F/U with Dr. Noy Rodriguez on 11/11. Hyperlipidemia 10214750 E78.5 Presumed stable. Continue statin. Atrial fibrillation 4943 6004 I48.91 Previously had a watchman procedure - sounds as though she remains in afib at this time.Stabl e. Continue Coreg for rate control.On baby ASA & Plavix, no stronger OAC due to hx of GIB.F/U with Dr. Noy Rodriguez on 11/11. Diabetes mellitus 135343 09 E11.51 HbA1c during her hospitaliz ation was 7.1% (per physician progress note dated 08/11/24).Marina borrero was treated with only SSI while hospitaliz ed.Resumed Tresiba, Victoza, and Januvia upon arrival here.SSI has been stopped.Mo nitor blood sugars and encourage LCS diet. Deep tissu e pressure injury 181444857 T14.8XXA Noted to the right lateral heel on admission to .Continu e heel protectors , offload pressure, and monitor closely.Cu rrently treating with skin prep.SWM consulted and following while here.Azalia cox underwent balloon angioplast y of this extremity as above. 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 She has roho w/c pad and air mattress.S WM is following weekly. Peptic ulcer 35462469 K2 7.9 History of GI bleed 2017 related to NSAIDS and OAC.She continues on high dose PPI therapy.Marina borrero reports she has frequent nausea and vomiting. None since last visit. Continue PRN Zofran. Irritable bowel syndrome 85177500 K58.9 with chronic diarrhea per pt. Continue PRN Dicyclomin e.Stable. Continue Senna Plus. Hemorrhoids 35109072 K64 .9 Improved since addition of Colace.Con tinue PRN Preparatio n H. Major depr essive disorder 804875176 F32.9 Venlafaxin e is noted on inpatient medication list but not continued on discharge. Stable. Continues on Trazodone for insomnia, but otherwise not on medication . Insomnia 548776611 G47.0 0 Pt takes Trazodone as OP. Confirmed with PCP dose is 100 mg qhs.Contin ue PRN Melatonin, as well. Vitamin deficiency 37725 002 E56.9 Presumed stable. Continue Vitamin D, Calcium, and B12 replacemen t. Candidiasis of skin 4988 3006 B37.2 Stable. Continue Clotrimazo le cream. Respirator y syncytial virus infection 59815299 B97.4 Treated with a prednisone taper, duonebs, and decongesta nts during her hospitaliz ation.Resp iratory symptoms are now resolved and supportive meds have been discontinu ed.O2 has been weaned.Mon itor clinically . Pneumonia 074254691 J18. 9 She was treated with Levaquin and Flagyl during her hospitaliz ation.Of note, Amoxicilli n was ordered per hospital discharge orders which was an error per Dr. Rosario the dischargin g hospitalis t.O2 has been weaned and will monitor for continued need. Acute hypo xemic respiratory failure 852652970 J96.01 Related to above as well, as volume overload.S he required supplement al O2 and intermitte nt bipap while hospitaliz ed -- both are now weaned and respirator y status appears stable. Monitor clinically . Physical deconditioning 3928119628 9102 R68.89 Related to advanced age, comorbidit ies and recent RSV infection/ pneumonia. Therapies will be initiated. She will return home with her children upon d/c from . [id number] Alena Ding, DO [address] [address] 09/02/2024 06:08:21 09/15/2024 21:16:53 Peripheral arterial occlusive disease 931255141 I73.9 Previously required toe amputation s to the bilateral feet and angioplast y to the LLE.On 08/28/24 = S/P balloon angioplast y of [R] anterior and posterior tibial, peroneal, and lateral plantar arteries per Dr. Boo without postoperat glen complicati ons.Contin ues on baby ASA daily & Plavix - Monitor closely for bleeding/n ew GI symptoms given hx of PUD with GIB while on antiplatel et meds Continue high-dose PPI.Contin ue statin and good blood pressure control.Co ntinue to monitor LE closely.Sh e will f/u with vascular on lso follows routinely with podiatry. End stage renal failure on dialysis 016980658 N18.6 Continue HD at [facility] on //F - daughter is hopeful to get the patient moved back to the [facility] location - unclear on issues regarding Hep B testing/co ncerns as this is not documented per available hospital recordsCon cirilo Hutchison. F/U with Nephrologi st Dr. Suarez as directed. Hypertensi ve renal disease 34665627 I12.9 Stable. Continue Coreg.Cont inue to trend blood pressures, monitor lytes and renal function, and adjust meds as clinically indicated. F/U with Dr. Noy Rodriguez on 11/11. Hyperlipidemia 73089234 E78.5 Presumed stable. Continue statin. Atrial fibrillation 4943 6004 I48.91 Previously had a watchman procedure - sounds as though she remains in afib at this time.Stabl e. Continue Coreg for rate control.On baby ASA & Plavix, no stronger OAC due to hx of GIB.F/U with Dr. oNy Rodriguez on 11/11. Diabetes mellitus 321189 09 E11.51 HbA1c during her hospitaliz ation was 7.1% (per physician progress note dated 08/11/24).Marina borrero was treated with only SSI while hospitaliz ed.Resumed Tresiba, Victoza, and Januvia upon arrival here.SSI has been stopped.Mo nitor blood sugars and encourage LCS diet. Deep tissu e pressure injury 768373633 T14.8XXA Noted to the right lateral heel on admission to .Continu e heel protectors , offload pressure, and monitor closely.Cu rrently treating with skin prep.SWM consulted and following while here.Recen tly underwent balloon angioplast y of this extremity as above. 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 She has roho w/c pad and air mattress.S WM is following weekly. Peptic ulcer 29337890 K2 7.9 History of GI bleed 2017 related to NSAIDS and OAC.She continues on high dose PPI therapy. e reports she has frequent nausea and vomiting. Continue PRN Zofran and monitor closely in light of starting antiplatel et therapy Irritable bowel syndrome 57634314 K58.9 with chronic diarrhea per pt. Continue PRN Dicyclomin e.Stable. Continue Senna Plus and prn miralax for constipati on Hemorrhoids 48354746 K64 .9 continue cathartics Continue PRN Preparatio n H. Major depr essive disorder 781182695 F32.9 Venlafaxin e is noted on inpatient medication list but was not continued on recent hospital discharge. Mood is stable. Continues on Trazodone for insomnia, but otherwise not on medication . Insomnia 229068749 G47.0 0 Pt takes Trazodone as OP. Confirmed with PCP dose is 100 mg qhs.Contin ue PRN Melatonin, as well. Vitamin deficiency 88441 002 E56.9 Presumed stable. Continue Vitamin D, Calcium, and B12 replacemen t. Candidiasis of skin 4988 3006 B37.2 Stable. Continue Clotrimazo le cream. Respirator y syncytial virus infection 92258461 B97.4 Treated with a prednisone taper, duonebs, and decongesta nts during her hospitaliz ation.Resp iratory symptoms are now resolved and supportive meds have been discontinu ed.O2 has been weaned.Mon james clinically . Pneumonia 690417614 J18. 9 She was treated with Levaquin and Flagyl during her hospitaliz ation.Of note, Amoxicilli n was ordered per hospital discharge orders which was an error per Dr. Rosario the dischargin g hospitalis t.O2 has been weaned and will monitor for continued need. Acute hypo xemic respiratory failure 124318587 J96.01 Related to above as well, as volume overload.S he required supplement al O2 and intermitte nt bipap while hospitaliz ed -- both are now weaned and respirator y status appears stable. Monitor clinically . Physical deconditioning 3482686162 9102 R68.89 Related to advanced age, comorbidit ies and recent RSV infection/ pneumonia. Therapies will be initiated. She will return home with her children upon d/c from . [id number] Alena Ding [address] [place] [address] [place] [address] 09/08/2024 13:34:43 09/15/2024 21:17:41 Peripheral arterial occlusive disease 078105299 I73.9 Previously required toe amputation s to the bilateral feet and angioplast y to the LLE.On 08/28/24 = S/P balloon angioplast y of [R] anterior and posterior tibial, peroneal, and lateral plantar arteries per Dr. Boo without postoperat glen complicati ons.Contin ues on baby ASA daily & Plavix - Monitor closely for bleeding/n ew GI symptoms given hx of PUD with GIB while on antiplatel et meds Continue high-dose PPI.Contin ue statin and good blood pressure control.Co ntinue to monitor LE closely.Sh e will f/u with vascular on lso follows routinely with podiatry. End stage renal failure on dialysis 302266774 N18.6 Continue HD at [facility] in [place] on - daughter is hopeful to get the patient moved back to the [facility] location - unclear on issues regarding Hep B testing/co ncerns as this is not documented per available hospital recordsCon cirilo Hutchison. F/U with Nephrologi st Dr. Suarez as directed. Hypertensi ve renal disease 37478623 I12.9 Stable. Continue Coreg.Cont inue to trend blood pressures, monitor lytes and renal function, and adjust meds as clinically indicated. F/U with Dr. Noy Rodriguez on 11/11. Hyperlipidemia 97317564 E78.5 Presumed stable. Continue statin. Atrial fibrillation 4943 6004 I48.91 Previously had a watchman procedure - sounds as though she remains in afib at this time.Stabl e. Continue Coreg for rate control.On baby ASA & Plavix, no stronger OAC due to hx of GIB.F/U with Dr. Noy Rodriguez on 11/11. Diabetes mellitus 359189 09 E11.51 HbA1c during her hospitaliz ation was 7.1% (per physician progress note dated 08/11/24).Marina borrero was treated with only SSI while hospitaliz ed.Resumed Tresiba, Victoza, and Januvia upon arrival here.SSI has been stopped.Mo nitor blood sugars and encourage LCS diet. Deep tissu e pressure injury 548060265 T14.8XXA Noted to the right lateral heel on admission to .Continu e heel protectors , offload pressure, and monitor closely.Cu rrently treating with skin prep.SWM consulted and following while here.Recen tly underwent balloon angioplast y of this extremity as above. 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 She has roho w/c pad and air mattress.S WM is following weekly. Peptic ulcer 01431101 K2 7.9 History of GI bleed 2017 related to NSAIDS and OAC.She continues on high dose PPI therapy.Sh e reports she has frequent nausea and vomiting. Continue PRN Zofran and monitor closely in light of starting antiplatel et therapy Irritable bowel syndrome 89774709 K58.9 with chronic diarrhea per pt. Continue PRN Dicyclomin e.Stable. Continue Senna Plus and prn miralax for constipati on Hemorrhoids 84854891 K64 .9 continue cathartics Continue PRN Preparatio n H. Major depr essive disorder 186644852 F32.9 Venlafaxin e is noted on inpatient medication list but was not continued on recent hospital discharge. Mood is stable. Continues on Trazodone for insomnia, but otherwise not on medication . Insomnia 896743403 G47.0 0 Pt takes Trazodone as OP. Confirmed with PCP dose is 100 mg qhs.Contin ue PRN Melatonin, as well. Vitamin deficiency 35635 002 E56.9 Presumed stable. Continue Vitamin D, Calcium, and B12 replacemen t. Candidiasis of skin 4988 3006 B37.2 Stable. Continue Clotrimazo le cream. Respirator y syncytial virus infection 25181636 B97.4 Treated with a prednisone taper, duonebs, and decongesta nts during her hospitaliz ation.Resp iratory symptoms are now resolved and supportive meds have been discontinu ed.O2 has been weaned.Mon itor clinically . Pneumonia 669616742 J18. 9 She was treated with Levaquin and Flagyl during her hospitaliz ation.Of note, Amoxicilli n was ordered per hospital discharge orders which was an error per Dr. Rosario the dischargin g hospitalis t.O2 has been weaned and will monitor for continued need. Acute hypo xemic respiratory failure 197770688 J96.01 Related to above as well, as volume overload.S he required supplement al O2 and intermitte nt bipap while hospitaliz ed -- both are now weaned and respirator y status appears stable. Monitor clinically . Health Concerns Section Related Observation LastModified by Organization Detai ls LastModified Time None Recorded Concern Status LastModified by Organization Details LastModified Time None Recorded Advance Directives Directive None Recorded Payers Encounter Date Sequence Insurance Name Policy Number Policy Garay Covered Member ID Garay Member ID Guarantor Name 08/19/2024 1 [facility] (MEDICARE REPLACEMENT/A DVANTAGE - PPO) [id number] Shasta F Javad Carrillo [id number] Shastakristy Farnsworth Topher 08/26/2024 1 [facility] (MEDICARE REPLACEMENT/A DVANTAGE - PPO) [id number] Shasta F Javad Carrillo [id number] Shasta Puri Javad Obando 09/01/2024 1 [facility] (MEDICARE REPLACEMENT/A DVANTAGE - PPO) [id number] Shasta Puri Javad Carrillo [id number] Shasta Farnsworth Topher 09/02/2024 1 [facility] (MEDICARE REPLACEMENT/A DVANTAGE - PPO) [id number] Shasta F Javad Carrillo [id number] Shastakristy Farnsworth Topher 09/08/2024 1 [facility] (MEDICARE REPLACEMENT/A DVANTAGE - PPO) [id number] Sahsta Puri Javad Carrillo [id number] Shasta Jaxson Javad Obando Notes Date Note Type Note Provider Name and Address Organization Details Recorded Time text/html F/U RSV, pneumonia, acute hypoxemic & hypercapnic respiratory failure, ESRD on HD, weakness, and chronic medical conditions.---08/17/24 patient is a fairly good historian. She is sitting up in her bedside chair this am. She is nauseated and has several episodes of emesis during my exam. She says this is usual if she drinks too much caffeine or eats something that upsets her stomach - she blames some yogurt she ate last night for current symptoms. She has no respiratory symptoms at present. She lives with 2 of her 3 children in a home in [place]. MOD IND with mobility and ADLS at baseline using a rollator. She has a hired caregiver that stays with her during the day and transports her to dialysis/takes her to appointments. Medications do not appear to have changed during her hospitalization from usual outpatient regimen. Nursing did review medications with son last evening on admission. The patient does admit to NOT always taking 10 units of tresiba in the evening - if blood sugars are low, she will adjust dose or hold.---08/19/24Shasta is seated in her recliner in her room, her caregiver by her side. Caregiver notes she takes her to and from HD 3x/week and spends 3 hours with her on 2 additional days assisting with ADLs while her children are at work. Shasta is doing well today, without concerns or pain, tells me she has not had a recurrence of nausea or vomiting. She does report she is constipated, which she states is highly unusual for her. She typically has chronic diarrhea. She has been eating well per pt and caregiver and her daughter plans to bring in more vegetables tonight for her to eat, as it sounds like this makes up the majority of her diet. She reports her last BM was 2-3 days ago. She reports she has decreased hearing in her right ear present since hospitalization. Dr. Clifford has requested an otoscope for evaluation and DON will be bringing it. VSS. Staff is without concerns today. Caregiver has been in contact with pt's daughter, who will bring home med list in for our reconciliation. Her blood sugars continue to run high at times. Florencia Ceron, [employer] [address] [facility], [place], [address], [facility] 08/19/2024 13:16:09 5 text/html F/U RSV, pneumonia, acute hypoxemic & hypercapnic respiratory failure, ESRD on HD, weakness, and chronic medical conditions.---08/17/24 patient is a fairly good historian. She is sitting up in her bedside chair this am. She is nauseated and has several episodes of emesis during my exam. She says this is usual if she drinks too much caffeine or eats something that upsets her stomach - she blames some yogurt she ate last night for current symptoms. She has no respiratory symptoms at present. She lives with 2 of her 3 children in a home in [place]. MOD IND with mobility and ADLS at baseline using a rollator. She has a hired caregiver that stays with her during the day and transports her to dialysis/takes her to appointments. Medications do not appear to have changed during her hospitalization from usual outpatient regimen. Nursing did review medications with son last evening on admission. The patient does admit to NOT always taking 10 units of tresiba in the evening - if blood sugars are low, she will adjust dose or hold.---08/19/24Shasta is seated in her recliner in her room, her caregiver by her side. Caregiver notes she takes her to and from HD 3x/week and spends 3 hours with her on 2 additional days assisting with ADLs while her children are at work. Shasta is doing well today, without concerns or pain, tells me she has not had a recurrence of nausea or vomiting. She does report she is constipated, which she states is highly unusual for her. She typically has chronic diarrhea. She has been eating well per pt and caregiver and her daughter plans to bring in more vegetables tonight for her to eat, as it sounds like this makes up the majority of her diet. She reports her last BM was 2-3 days ago. She reports she has decreased hearing in her right ear present since hospitalization. Dr. Clifford has requested an otoscope for evaluation and DON will be bringing it. VSS. Staff is without concerns today. Caregiver has been in contact with pt's daughter, who will bring home med list in for our reconciliation. Her blood sugars continue to run high at times.---08/25/24Shasta is in her w/c in the hallway, taking a break between therapy sessions. She is doing well, without major concerns but is requesting the addition of Preparation H cream (which she uses as OP) and to make certain that her sleeping pill is 2 tablets, as she believes they have only been giving her 1 and she has been waking up at 3 AM and unable to fall back asleep. I do confirm that she is taking [address] Coppola's office that this is the correct dosage. She otherwise is without concerns. VSS. Staff is without concerns, as well. Per therapy notes: Conducted gait training with Rollator ~40' CGA cues for turns. sit/stand Branden of 1 cues . Standing at Rollator CGA Florencia Ceron, [place] [address] [facility], [place], [address], [facility] 08/26/2024 11:29:26 02/24/202 5 text/html F/U PAD s/p balloon angioplasty of RLE, RSV, pneumonia, acute hypoxemic & hypercapnic respiratory failure, ESRD on HD, weakness, and chronic medical conditions.---08/17/24 patient is a fairly good historian. She is sitting up in her bedside chair this am. She is nauseated and has several episodes of emesis during my exam. She says this is usual if she drinks too much caffeine or eats something that upsets her stomach - she blames some yogurt she ate last night for current symptoms. She has no respiratory symptoms at present. She lives with 2 of her 3 children in a home in [place]. MOD IND with mobility and ADLS at baseline using a rollator. She has a hired caregiver that stays with her during the day and transports her to dialysis/takes her to appointments. Medications do not appear to have changed during her hospitalization from usual outpatient regimen. Nursing did review medications with son last evening on admission. The patient does admit to NOT always taking 10 units of tresiba in the evening - if blood sugars are low, she will adjust dose or hold.---08/19/24Shasta is seated in her recliner in her room, her caregiver by her side. Caregiver notes she takes her to and from HD 3x/week and spends 3 hours with her on 2 additional days assisting with ADLs while her children are at work. Shasta is doing well today, without concerns or pain, tells me she has not had a recurrence of nausea or vomiting. She does report she is constipated, which she states is highly unusual for her. She typically has chronic diarrhea. She has been eating well per pt and caregiver and her daughter plans to bring in more vegetables tonight for her to eat, as it sounds like this makes up the majority of her diet. She reports her last BM was 2-3 days ago. She reports she has decreased hearing in her right ear present since hospitalization. Dr. Clifford has requested an otoscope for evaluation and DON will be bringing it. VSS. Staff is without concerns today. Caregiver has been in contact with pt's daughter, who will bring home med list in for our reconciliation. Her blood sugars continue to run high at times.---08/25/24Shasta is in her w/c in the hallway, taking a break between therapy sessions. She is doing well, without major concerns but is requesting the addition of Preparation H cream (which she uses as OP) and to make certain that her sleeping pill is 2 tablets, as she believes they have only been giving her 1 and she has been waking up at 3 AM and unable to fall back asleep. I do confirm that she is taking [address] tablets [address] with [address] Coppola's office that this is the correct dosage. She otherwise is without concerns. VSS. Staff is without concerns, as well. Per therapy notes: Conducted gait training with Rollator ~40' CGA cues for turns. sit/stand Branden of 1 cues . Standing at Rollator CGA ---09/01/24Pt was at [facility] from 08/28 to 08/29/24 balloon angioplasty of RLE ( anterior tibial, posterior tibial, and lateral plantar arteries. Improved blood flow through peroneal artery with persistent occlusion in distal peroneal artery where there is retrograde filling of peroneal from AT collaterals ). Was kept overnight for observation, no reported complications. Only new medication was addition of Plavix 75 mg daily. She will f/u with vascular on 11/11.Per discharge summary: Presenting Problem/History of Present Illness:Shasta Obando is a 79 yo F with PMH of DM and ESRD on HD M,W,F, A fib sp watchman device, HLD and prior toe amputations that developed right worse than left heel wounds after being admitted for a viral respiratory infection. The wounds have not improved despite adequate wound care. She was evaluated by Dr. Boo and identified ischemic changes to the heel wounds. She has a history of bilateral toe wounds and PAD. She presented today in her normal state of health for planned revascularization per IR. See procedure note. She tolerated her normal HD yesterday (MWF) and feeling well without dyspnea, edema, chest pain or cramping. VSS.She is being admitted to observation and plans HD tomorrow prior to discharge home.Hospital Course:Critical limb ischemia of right lower extremityS/p uncomplicated balloon angioplasty of the AT, peroneal, PT and DP with improvement in blood flow and residual stenoses in the PT, AT, and lateral plantar arteries. Residual stenosis of the peroneal with improved filling via retrograde blood flow. Moderate stenosis of the proximal right common iliac artery just distal to the bifurcation.- S/p Plavix 300 in IR suite, resume 75 mg daily with ASA- No complications noted post procedure, Follow up with IR outpatientESRD (end stage renal disease) on dialysisRoutine M/W/F r brachial fistula (has required multiple dilations last at [facility] 07/2024. Renal consulted and patient received HD prior to discharge.Referral for outpatient sleep study per patient family member request. All other chronic medical conditions were stable during admission and no changes made to patients previous home medications. Shasta is seated in her w/c in her room, without concerns or pain to report today. She is heading to dialysis shortly. Her caregiver is at her side. She reports her recent procedure went very well without concerns, although she does note trace edema to her [R] ankle since the procedure. Otherwise perfusion appears normal. VSS. Staff is without concerns today. Florencia Ceron, NIKO [address] [facility], [place], [address], [facility] - [facility] 09/01/2024 14:03:56 5 text/html F/U with the patient today after recent balloon angioplasty of the RLE with overnight admission to [facility] 08/28/2024.---08/17/24 patient is a fairly good historian. She is sitting up in her bedside chair this am. She is nauseated and has several episodes of emesis during my exam. She says this is usual if she drinks too much caffeine or eats something that upsets her stomach - she blames some yogurt she ate last night for current symptoms. She has no respiratory symptoms at present. She lives with 2 of her 3 children in a home in [place]. MOD IND with mobility and ADLS at baseline using a rollator. She has a hired caregiver that stays with her during the day and transports her to dialysis/takes her to appointments. Medications do not appear to have changed during her hospitalization from usual outpatient regimen. Nursing did review medications with son last evening on admission. The patient does admit to NOT always taking 10 units of tresiba in the evening - if blood sugars are low, she will adjust dose or hold.---08/19/24Shasta is seated in her recliner in her room, her caregiver by her side. Caregiver notes she takes her to and from HD 3x/week and spends 3 hours with her on 2 additional days assisting with ADLs while her children are at work. Shasta is doing well today, without concerns or pain, tells me she has not had a recurrence of nausea or vomiting. She does report she is constipated, which she states is highly unusual for her. She typically has chronic diarrhea. She has been eating well per pt and caregiver and her daughter plans to bring in more vegetables tonight for her to eat, as it sounds like this makes up the majority of her diet. She reports her last BM was 2-3 days ago. She reports she has decreased hearing in her right ear present since hospitalization. Dr. Clifford has requested an otoscope for evaluation and DON will be bringing it. VSS. Staff is without concerns today. Caregiver has been in contact with pt's daughter, who will bring home med list in for our reconciliation. Her blood sugars continue to run high at times.---08/25/24Shasta is in her w/c in the hallway, taking a break between therapy sessions. She is doing well, without major concerns but is requesting the addition of Preparation H cream (which she uses as OP) and to make certain that her sleeping pill is 2 tablets, as she believes they have only been giving her 1 and she has been waking up at 3 AM and unable to fall back asleep. I do confirm that she is taking [address] with [address] Coppola's office that this is the correct dosage. She otherwise is without concerns. VSS. Staff is without concerns, as well. Per therapy notes: Conducted gait training with Soldierator ~40' CGA cues for turns. sit/stand Branden of 1 cues . Standing at [facility] CGA ---09/01/2024Shasta is seated in her w/c in her room, without concerns or pain to report today. She is heading to dialysis shortly. Her caregiver is at her side. She reports her recent procedure went very well without concerns, although she does note trace edema to her [R] ankle since the procedure. Otherwise perfusion appears normal. VSS. Staff is without concerns today.---09/02/2024Pt was at [facility] from 08/28 to 08/29/24 for balloon angioplasty of the RLE. She was kept overnight for observation, no reported complications. New medications include ASA and plavix. She will f/u with vascular on 11/11. Shasta is lying in bed this evening with her 2 daughters at her side. They are concerned about her taking ASA and plavix with her prior history of PUD/GI bleeding. Duration of treatment for these meds was not discussed with the patient or family while at [facility]. The daughter is also trying to get her dialysis moved back to [place] - Shasta was transferred to the [facility] location in [place] in May 2024 due to testing positive for Hepatitis B although the daughter reports the validity of this positive test has been disputed by GI and ID as repeat testing has been negative. Shasta denies new complaints or concerns today - specifically no GI symptoms. Her RLE remains a bit swollen since the vascular procedure. [place] [address] [place], [address], [facility] - [facility] 09/04/2024 06:20:52 5 text/html 79 Y/O female with a history of ESRD on HD x 13 years, IDDM, HTN, OA, PVD, PUD, atrial fibrillation and depression admitted to [facility] for post acute rehab subsequent to an inpatient stay at [facility] 08/01-08/16/2024 related to RSV and pneumonia. The patient presented to the ER with a 3 day history of SOB, cough and cold symptoms. She had been on amoxicillin prior to hospital admission related to her symptoms. Please note that there is very limited inpatient documentation sent with the patient from [facility] for review today. No admission H&P and no discharge summary provided. There are random labs and imaging results available from a pulmonary progress note and a hospitalist progress note that has been sent with her. I did call the discharging hospitalist last evening, Dr Rosario, to clarify the amoxicillin x 7 days which was ordered per d/c orders. He reports that this was an error. Her blood sugar was also >300 on arrival which was just prior to supper time and it was unclear what diabetes medications she had been given yesterday at the hospital. He reports she had been only getting SSI while inpatient which was not ordered on discharge. So, tresiba and victoza given last evening. Januvia was resumed this am. RSV testing was positive on hospital admission. This was treated with oral prednisone, prn O2, nebs and decongestants. The patient was improving with plans for discharge 08/07 when she had acute worsening in respiratory symptoms with AMS. Repeat chest imaging was c/w pneumonia treated with levaquin and flagyl. AMS was thought to be related to hypercarbia - head CT and brain MRI without acute pathology. She required bipap with supplemental O2 which has now been weaned. She completed antibiotics during her hospitalization. Pulmonary followed her during her hospitalization and will see her in the outpatient setting at some point - no appointment has been scheduled. She was followed by nephrology and continued her usual HD schedule of M//. Her hospitalization does not appear to have been further complicated. PCP [facility] status is [facility] in [place]---08/17/24 patient is a fairly good historian. She is sitting up in her bedside chair this am. She is nauseated and has several episodes of emesis during my exam. She says this is usual if she drinks too much caffeine or eats something that upsets her stomach - she blames some yogurt she ate last night for current symptoms. She has no respiratory symptoms at present. She lives with 2 of her 3 children in a home in [place]. MOD IND with mobility and ADLS at baseline using a rollator. She has a hired caregiver that stays with her during the day and transports her to dialysis/takes her to appointments. Medications do not appear to have changed during her hospitalization from usual outpatient regimen. Nursing did review medications with son last evening on admission. The patient does admit to NOT always taking 10 units of tresiba in the evening - if blood sugars are low, she will adjust dose or hold.---08/19/24Shasta is seated in her recliner in her room, her caregiver by her side. Caregiver notes she takes her to and from HD 3x/week and spends 3 hours with her on 2 additional days assisting with ADLs while her children are at work. Shasta is doing well today, without concerns or pain, tells me she has not had a recurrence of nausea or vomiting. She does report she is constipated, which she states is highly unusual for her. She typically has chronic diarrhea. She has been eating well per pt and caregiver and her daughter plans to bring in more vegetables tonight for her to eat, as it sounds like this makes up the majority of her diet. She reports her last BM was 2-3 days ago. She reports she has decreased hearing in her right ear present since hospitalization. Dr. Clifford has requested an otoscope for evaluation and DON will be bringing it. VSS. Staff is without concerns today. Caregiver has been in contact with pt's daughter, who will bring home med list in for our reconciliation. Her blood sugars continue to run high at times.---08/25/24Shasta is in her w/c in the hallway, taking a break between therapy sessions. She is doing well, without major concerns but is requesting the addition of Preparation H cream (which she uses as OP) and to make certain that her sleeping pill is 2 tablets, as she believes they have only been giving her 1 and she has been waking up at 3 AM and unable to fall back asleep. I do confirm that she is taking [address] tablets [address] with [address]. Coppola's office that this is the correct dosage. She otherwise is without concerns. VSS. Staff is without concerns, as well. Per therapy notes: Conducted gait training with Rollator ~40' CGA cues for turns. sit/stand Branden of 1 cues . Standing at [facility] CGA ---09/01/2024Shasta is seated in her w/c in her room, without concerns or pain to report today. She is heading to dialysis shortly. Her caregiver is at her side. She reports her recent procedure went very well without concerns, although she does note trace edema to her [R] ankle since the procedure. Otherwise perfusion appears normal. VSS. Staff is without concerns today.---09/02/2024Pt was at [facility] from 08/28 to 08/29/24 for balloon angioplasty of the RLE. She was kept overnight for observation, no reported complications. New medications include ASA and plavix. She will f/u with vascular on 11/11. Shasta is lying in bed this evening with her 2 daughters at her side. They are concerned about her taking ASA and plavix with her prior history of PUD/GI bleeding. Duration of treatment for these meds was not discussed with the patient or family while at [facility]. The daughter is also trying to get her dialysis moved back to [place] - Shasta was transferred to the [facility] location in [place] in May 2024 due to testing positive for Hepatitis B although the daughter reports the validity of this positive test has been disputed by GI and ID as repeat testing has been negative. Shasta denies new complaints or concerns today - specifically no GI symptoms. Her RLE remains a bit swollen since the vascular procedure. No nursing concerns.---09/08/24Shasta is doing well today, without pain but does report loose stools. Staff have held her Senna Plus this morning. Otherwise she is without GI complaints. She is preparing to head to HD. VSS. Staff is without concerns. Per 09/05 therapy notes: Conducted gait training with rollator 30' CGA cues for narrow spaces. wc follow. sit/stand SBA. adl as follows: vc for rolling to right for sup to sit with bed rail cga... sitting eob good. ue drsesing sba. le dressing cga. toileting cga. Pt has been issued a LCD on [employer] services for today. She filed a first appeal and lost. She has since filed a 2nd level appeal with determination pending. Florencia Ceron, [employer] [address] [facility], [place], [address], [facility] - [facility] 09/09/2024 08:55:38 OBGyn Episode No OBEpisode recorded.
--- OUTSIDE RECORDS SUMMARY | 2024-11-26 18:04 | XMS_ITS | Encounter Summary ---
Author Organization [facility] Healthcare Address [address] [place] [address] Care Team Providers Care Jira Administrator Name Role Phone David Coppola MD Primary Care Provider [phone] Jacob Suarez MD Unavailable [phone] Ros Seay MD Unavailable [phone] Abdifatah Villa MD Unavailable Issa Clements MD Unavailable [phone] Encounter Details Date Type Department Care Team (Late st Contact Info) Description 11/19/2024 Telephone [facility] Radiology [address] [place] [address] Yaritza Golden RN Social History Tobacco Use Types Packs/Day [...] often do you attend chur ch or latter-day services? 1 to 4 times per year 09/04/2019 Do you belong to any clubs o r organizations such as moravian groups, unions, fraternal or athletic groups, or [...] on file Legal Sex Female 12:39 PM [employer] Gender Identity Not on file Sexual Orientation Not on file documented as of this encounter Plan of Treatment Scheduled Procedures Name Priority Associated Diagnoses Date/Ti me TRANSPLANT KIDNEY ESRD (end stage renal disease) (HCC) documented as of this encounter Visit Diagnoses Not on filedocumented in this encounter Care Teams Jira Administrator Relationship Specialty Start Date End Date David Coppola MD PCP - General Family Medicine 10/29/17 Jacob Suarez MD Referring Physician Nephrology 12/20/18 Ros Seay MD Loan Collector Cardiology 03/05/19 Abdifatah Villa MD [address] [facility] [address] [place] [address] Consulting Physician Cardiology 09/01/20 Issa Clements MD [address] [facility] [address] [facility] [address] [place] [address] Referring Physician General Surgery 09/01/20 documented as of this encounter
--- OUTSIDE RECORDS SUMMARY | 2024-11-26 18:04 | XMS_ITS | Data Portability ---
Author Organization [place] [facility], Main Office Address [address] [place] [address] Care Team Providers Care Steel Checker Name Role Phone NOY PENN Primary Care Provider NOY PENN Referring Provider Assessment Encounter Date Assessment Date Assessment LastModified by Organization Details LastModified Time 01/17/2024 01/17/2024 the patient has moderately severe [...] difficulties or questions. Not available 09/25/2024 10:45:55 11/20/2024 11/20/2024 The patient has severe primary osteoarthritis of the left knee joint. At her request under sterile conditions I injected the patient's left knee joint in the office today with Synvisc-One injection. The patient obtain the medication from the specialty pharmacy to bring today. The patient also has low back pain with left sacroiliac pain chronically. Shots of cortisone gave her good relief for several months at a time she would like that injected again today. Under sterile conditions I injected the patient's left sacroiliac bursa in the office with 4 cc of 0.5% bupivacaine and 20 mg of Kenalog. Patient tolerated the procedure well. I will see her back as needed if her symptoms worsen or change she is instructed to call we can do gel shot again in 6 months versus cortisone in between she voiced understanding and agreed with the above plan she will call for any further problems difficulties or questions. Not available 11/20/2024 09:49:57 Plan of Treatment Reminders Order Date Submit Date Provider Last Modified By Organization Details Last Modified Time Details Appointments None recorded. Lab None recorded. Referral None recorded. Procedures injection/a spiration joint/bursa (PROC) 2024 025 [email or web address] In-Office Order, Internal Use Only DO Not Attach Compendium DO Not Attach Compendium, Do Not Delete/merge, [id number] 5 09:38:35 injection/a spiration joint/bursa (PROC) 2024 025 [email or web address] In-Office Order, Internal Use Only DO Not Attach Compendium DO Not Attach Compendium, Do Not Delete/merge, [id number] 5 09:44:26 injection/a spiration joint/bursa (PROC) 2024 025 [email or web address] In-Office Order, Internal Use Only DO Not Attach Compendium DO Not Attach Compendium, Do Not Delete/merge, [id number] 5 10:20:17 injection/a spiration joint/bursa (PROC) 2024 025 [email or web address] In-Office Order, Internal Use Only DO Not Attach Compendium DO Not Attach Compendium, Do Not Delete/merge, [id number] 5 10:20:17 injection/a spiration joint/bursa (PROC) 2023 024 [email or web address] In-Office Order, Internal Use Only DO Not Attach Compendium DO Not Attach Compendium, Do Not Delete/merge, [id number] 4 09:42:08 injection/a spiration joint/bursa (PROC) 2023 024 [email or web address] In-Office Order, Internal Use Only DO Not Attach Compendium DO Not Attach Compendium, Do Not Delete/merge, [id number] 4 10:20:15 injection/a spiration joint/bursa (PROC) 2023 024 [email or web address] In-Office Order, Internal Use Only DO Not Attach Compendium DO Not Attach Compendium, Do Not Delete/merge, [id number] 4 09:33:15 knee aspiration/ injection (PROC) 2023 024 [email or web address] In-Office Order, Internal Use Only DO Not Attach Compendium DO Not Attach Compendium, Do Not Delete/merge, [id number] 4 15:16:45 Surgeries None recorded. Imaging XR, hip + pelvis, unilateral 2023 024 [email or web address] [facility] [place], [address], [place], [address], 4 11:01:36 XR, knee 2023 024 [email or web address] [facility] [place], [address], [place], [address], 4 11:01:36 XR, hand 2023 024 [email or web address] [facility] [place], [address], [place], [address], 4 09:53:35 Medication Orders bupivacaine HCl 0.5 % (5 mg/mL) injection solution 2024 025 [email or web address] [facility], [address], [place], [address], 5 11:04:00 Kenalog 10 mg/mL suspension for injection 2024 025 [email or web address] [facility], [address] [place], [address], 5 11:04:00 bupivacaine HCl 0.5 % (5 mg/mL) injection solution [address] [facility] [address] [facility], [address] [place], [address], 5 09:36:13 Kenalog 10 mg/mL suspension for injection [address] [facility], [address] [place], [address], 5 09:37:00 bupivacaine HCl 0.5 % (5 mg/mL) injection solution [address] [facility] [address] [facility], [address] [place], [address], 5 09:36:13 Kenalog 10 mg/mL suspension for injection [address] [facility], [address] [place], [address], 5 09:37:00 bupivacaine HCl 0.5 % (5 mg/mL) injection solution [address] [facility] [address] [facility], [address] [place], [address], 5 09:36:13 Kenalog 10 mg/mL suspension for injection [address] [facility], [address] [place], [address], 5 09:37:00 bupivacaine HCl 0.5 % (5 mg/mL) injection solution [address] [facility] [address] [facility], [address] [place], [address], 5 09:36:13 Kenalog 10 mg/mL suspension for injection [address] [facility], [address] [place], [address], 5 09:37:00 bupivacaine HCl 0.5 % (5 mg/mL) injection solution [address] [facility], [address] [place], [address], 5 09:36:13 Kenalog 10 mg/mL suspension for injection [address] [facility], [address] [place] [address], [address], 5 09:37:00 prednisone 10 mg tablets in a dose pack [address] [facility] [address] [facility], [address] [place] [address], [address], 5 10:21:24 Patient TargetsNo targets recorded. Patient InstructionsNo instructions recorded. Reason for Referral None Reported. Results Created Date Observation Date Name Description Value Unit Range Abnormal Flag Note LastModifiedBy Organization Detail LastModifiedTime 04/10/20 24 XR, hand No observ ation record ed. [email or web address] [facility] [place] [address], [place], [address], 04/10/2024 09:40:52 05/22/20 24 XR, hip + pelvi s, unila teral No observ ation record ed. [email or web address] [facility] [place] [address], [place], [address], 05/22/2024 10:17:36 05/22/20 24 XR, knee No observ ation record ed. [email or web address] [facility] [place] [address], [place], [address], 05/22/2024 10:16:41 Result Notes None recorded. Problems Name Problem SNOMED Code Status Onset Date Resolution Date Notes Provider Name and Address Organization Details Recorded Time Lumbar radiculopa thy 924605398 Active 2021 Not Available [facility] 3 06:11:04 Acquired trigger finger 1861005 Active Not Available [facility] 3 06:11:04 Pain of left elbow joint 3006515774331 9104 Active 2021 Not Available [facility] 3 06:11:04 Radiothera py follow-up 020041108 Active Not Available [facility] 3 06:11:04 Pain of joint of wrist 134377216 Active Not Available [facility] 3 06:11:04 Osteoarthr itis of knee 330414907 Active Not Available [facility] 3 06:11:04 Lumbar spondylosi s 312607040 Active 2021 Not Available [facility] 3 06:11:04 Closed Colles' fracture 160559343 Active Not Available [facility] 3 06:11:04 Chronic low back pain 173503214 Active 2021 Not Available [facility] 3 06:11:04 Thoracic back pain 402248858 Active 2021 Not Available [facility] 3 06:11:05 Low back pain 840569533 Active 2021 Not Available [facility] 3 06:11:05 Knee pain Active Not Available [facility] 3 06:11:05 Lateral epicondyli tis of left humerus 0622298249150 00 Active 2021 Not Available [facility] 3 06:11:05 Pain of left hip joint 6742953895977 00 Active 2021 Not Available [facility] 3 06:11:05 Trochanter ic bursitis of left hip 3311312316264 03 Active 2020 Not Available [facility] 3 06:11:05 Osteoarthr itis of left knee joint 5286992055397 09 Active 2021 Not Available [facility] 3 06:11:05 Osteoarthr itis 902587817 Active Not Available [facility] 3 06:11:05 Kyphosis deformity of spine 901997478 Active 2021 Not Available [facility] 3 06:11:05 Pain of right knee joint 9698691061782 00 Active 2022 CAMI Patel, [place] [facility] 3 14:55:06 Bilateral osteoarthr itis of knees 7054095361757 07 Active 2022 Claudia London null, [place] [facility] 3 15:26:06 Pain of right hip joint 0033826426054 02 Active 2022 Jessie Stark CNA null, [place] [facility] 3 16:00:21 Trochanter ic bursitis of right hip 7146357364581 00 Active 2022 CHIARA Arreguin [address], [address], [place], [address] , [place] [facility] 3 16:37:49 Fracture of inferior pubic ramus 032113161 Active 2022 CHIARA Arreguin [address], [address], [place], [address] , [place] [facility] 3 16:39:00 Contusion of left hip region 0957188543368 9102 Active 2022 CHIARA Arreguin [address], [address], [place], [address] , [place] [facility] 3 11:07:40 Pain in right hand 6074691298277 09 Active 2023 Jessie Stark CNA null, [facility] 4 09:18:22 Trigger finger of right hand 7488006011529 9101 Active 2023 Susie beach, [place] [facility] 4 09:31:25 Pain of left knee joint 9429584577061 07 Active 2023 Jessieсергей Stark CNA null, [facility] 4 09:37:19 Pain in left sacroiliac joint 7734166078924 9102 Active 2023 CHIARA Arreguin [address], [address], [place], [address] , [facility] 4 10:18:12 Problem Notes None recorded. Procedures Surgical History Date Name Laterality Status Provider Name and Address Organization Details Recorded Time 3 Ortho - Cortisone Injection completed Antoine Abreu MD [address], [address], [place], [address], [facility] 10/24/2022 15:24:25 Foot Surgery completed Jessie Stark CNA [facility] 09/25/2024 10:22:15 Imaging Results Imaging Date Name Status LastModified by Organiz [facility] Details LastModified Time 04/10/2024 XR, hand completed [email or web address] [facility] [place] [address], [place], [address], 04/10/2024 09:40:52 05/22/2024 XR, hip + pelvis, unilateral completed [email or web address] [facility] [place] [address], [place], [address], 05/22/2024 10:17:36 05/22/2024 XR, knee completed [email or web address] [facility] [place] [address], [place], [address], 05/22/2024 10:16:41 Procedure Notes None recorded. Medical Equipment None Reported. Allergies Allergen ID Allergen Name Allergen Category Reaction Reaction Severity Criticality Documentation Date Start Date Code Code System Note Provider Name and Address Organization Details Recorded Time 67067 gabapenti n medicatio n Not available Not available Not available 09/06/2022 34784 RxNorm Not Available [facility] 3 06:17:06 Medications Name Sig Start Date [...] Available Not Available Not Available metronidazo le 500 mg tablet TAKE 1 TABLET BY MOUTH TWICE DAILY FOR 10 DAYS active Not Available Not Available No t Available acetaminoph en 300 mg-codeine 30 mg [...] 20 mg by injection route. 2024 active [facility]: 0003- 0494- 20 Not Available Not [...] USE MORE THAN 7 DAYS CONSECUTI VELY 11/20 completed Not Available Not Available Not Available cholestyram ine (with sugar) 4 gram [...] Ultra-Fine Mini Pen Needle 31 gauge x 3/16 USE DIRECTED active Not Available Not Available [...] administe red by the provider 06/27 completed [facility]: 0409- 4276- 17 Not Available Not [...] Available pen needle, diabetic 32 gauge x 32 USE DIRECTED active Not Available Not Available No t Available Prolia 60 mg/mL subcutaneou s syringe INJECT 1ML EVERY 6 MONTHS DIRECTED active Not Available Not Available No t Available NovoTwist 32 gauge x 1/5 needle USE DIRECTED 05/24 completed Not Available Not Available Not Available Xarelto 10 mg tablet 12/29 completed Not Available Not Available Not Available ropivacaine (PF) 5 mg/mL (0.5 %) injection solution Take 20 mg by injection route. 05/24 completed [facility] 89585 -064- 01 Not Available Not Available Not [...] TAKE 1 TABLET BY MOUTH ONCE DAILY AFTER DIALYSIS TREATMENT . MUST ADMINSITE R WITH MEAL/FOOD active Not Available Not Available No t [...] Updated DateTime 01/17/2024 142.24 cm 27.6 kg/m2 76434.86 g HARSH Bloom [employer] 01/17/2024 15:15:43 Date Recorded Body height Body mass index (BMI) Body weight Provider Name and Address Organization Details Last Updated DateTime 04/10/2024 142.24 cm 25.1 kg/m2 96123.35 g Jessie Stark CNA [employer] 04/10/2024 09:17:43 Date Recorded Body height Body mass index (BMI) Body weight Provider Name and Address Organization Details Last Updated DateTime 05/22/2024 149.86 cm 25.4 kg/m2 59294.64 vamshi Stark CNA [employer] 05/22/2024 09:36:46 Date Recorded Body height Body mass index (BMI) Body weight Provider Name and Address Organization Details Last Updated DateTime 09/25/2024 142.24 cm 25.3 kg/m2 79165.94 g Jessie Stark CNA [employer] 09/25/2024 10:20:33 Date Recorded Body height Body mass index (BMI) Body weight Provider Name and Address Organization Details Last Updated DateTime 11/20/2024 142.24 cm 26.7 kg/m2 04252.49 g Jessie Stark [employer] 11/20/2024 09:36:37 Social History None recorded. Functional Status Question Answer Note LastModified by Organizat ion Details LastModified Time What is your level of alcohol consumption? None [id number] Information not available 09/06/2022 Mental Status None recorded. Family History Relationship Description Onset Age of this Age Resolved Age Notes LastModified by Organization Details LastModified Time Father Heart disease [id number] Not available 09/06/2022 06:06:34 Father Essential hypertension [id number] Not available 09/06/2022 06:06:34 Mother Heart disease [...] SNOMED-CT Code Diagnosis ICD10 Code Diagnosis Note [id number] CHIARA Arreguin [facility] [place] [address] [place] [address] 02/17/2021 00:00:00 02/17/2021 15:38:54 [id number] Antoine Abreu MD [facility] [place] [address] [place] [address] 03/17/2021 00:00:00 03/17/2021 13:49:47 [id number] Antoine Abreu MD [facility] [place] [address] [place] [address] 05/30/2021 00:00:00 05/30/2021 11:01:16 [id number] Anotine Abreu MD [facility] [place] [address] [place] [address] 06/27/2021 00:00:00 06/27/2021 11:51:54 [id number] Antoine Abreu MD [facility] [place] [address] [place] [address] 07/26/2021 00:00:00 07/26/2021 15:19:20 [id number] Antoine Abreu MD [facility] [place] [address] [place] [address] 09/15/2021 00:00:00 09/15/2021 15:46:26 [id number] Antoine Abreu MD [facility] [place] [address] [place] [address] 10/18/2021 00:00:00 10/18/2021 14:47:13 [id number] Antoine Abreu MD [facility] [place] [address] [place] [address] 11/15/2021 00:00:00 11/15/2021 14:19:46 [id number] Antoine Abreu MD [facility] [place] [address] [place] [address] 12/15/2021 00:00:00 12/15/2021 13:34:31 [id number] Antoine Abreu MD [facility] [place] [address] [place] [address] 01/17/2022 00:00:00 01/17/2022 15:40:04 [id number] Antoine Abreu MD [facility] [place] [address] [place], [place] [address] 02/27/2022 00:00:00 02/27/2022 12:48:14 [id number] Antoine Abreu MD [facility] [place] [address] [place], [place] [address] 2022 00:00:00 2022 12:13:48 [id number] Antoine Abreu MD [facility] [place] [address] [place], [place] [address] 05/02/2022 00:00:00 05/02/2022 15:43:04 [id number] Antoine Abreu MD [facility] [place] [address] [place], [place] [address] 05/23/2022 00:00:00 05/23/2022 17:15:11 [id number] Antoine Abreu MD [facility] [place] [address] [place], [place] [address] 06/20/2022 00:00:00 06/20/2022 14:56:07 [id number] Antoine Abreu MD [facility] [place] [address] [place], [place] [address] 10/24/2022 14:42:21 10/24/2022 15:30:28 Pain of left hip joint 0983646744 60863 M25.552 Trochanter ic bursitis of left hip 8899409630 54607 M70.62 Low back pain 743498161 M54.50 Kyphosis d eformity of spine 901799977 M40.209 Osteoarthr itis of left knee joint 2800493495 57592 M17.12 Pain of le ft elbow joint 5255134667 3728479 M25.522 Lateral ep icondylitis of left humerus 8205934918 81421 M77.12 Lumbar radiculopathy 128 715553 M54.16 Lumbar spondylosis 00739 0009 M47.896 Pain of ri ght knee joint 8145023284 76151 M25.561 History of right total knee replacement 6813110778 799526 Z96.651 [id number] Antoine Abreu MD [facility] [place] [address] [place] [address] 11/30/2022 11:19:37 11/30/2022 11:45:46 Osteoarthritis of left knee joint 8008335500 31458 M17.12 [id number] Antoine Abreu MD [facility] [place] [address] [place] [address] 02/06/2023 15:15:39 02/06/2023 16:29:36 Osteoarthritis of left knee joint 2769326352 33415 M17.12 Pain of ri ght hip joint 9156366518 80733 M25.551 History of right total knee replacement 5781622553 279446 Z96.651 Trochanter ic bursitis of right hip 6742606528 46549 M70.61 Fracture o f inferior pubic ramus 519548776 S32.592S [id number] Velasquez Stearns MD [facility] [place] [address] [place] [address] 05/24/2023 09:47:00 05/24/2023 11:05:33 Pain of left hip joint 3172257547 45336 M25.552 Trochanter ic bursitis of left hip 4707028129 07835 M70.62 Osteoarthr itis of left knee joint 5117022295 34446 M17.12 Knee pain 31080613 M25.5 69 Contusion of left hip region 3406577208 2325818 S70.02XA History of right total knee replacement 4560584382 972269 Z96.895 [id number] Duarte Mora MD [facility] [place] [address] [place] [address] 11/13/2023 14:16:28 11/13/2023 14:53:48 Osteoarthritis of left knee joint 9065234784 86653 M17.12 Trochanter ic bursitis of left hip 4968621075 29197 M70.62 [id number] Duarte Mora MD [facility] [place] [address] [place] [address] 01/17/2024 15:11:40 01/17/2024 15:38:24 Osteoarthritis of left knee joint 1404029196 92502 M17.12 [id number] Duarte Mora MD [facility] [place] [address] [place] [address] 04/10/2024 09:13:43 04/10/2024 09:36:50 Pain in right hand 7224103992 15997 M79.641 Trigger fi nger of right hand 3481471405 5152446 M65.535 [id number] Duarte Mora MD [facility] [place] [address] [place] [address] 05/22/2024 09:32:58 05/22/2024 11:01:36 Trochanteric bursitis of left hip 4283311534 82229 M70.62 Osteoarthr itis of left knee joint 4605776170 88714 M17.12 Pain of le ft knee joint 1871312870 85906 M25.562 Lumbar spondylosis 51358 0009 M47.896 Low back pain 444619069 M54.50 Pain in le ft sacroiliac joint 2370131658 1120988 M53.3 [id number] Duarte Mora MD [facility] [place] [address] [place] [address] 09/25/2024 10:01:48 09/25/2024 10:35:12 Pain of left hip joint 8837600021 79385 M25.552 Osteoarthr itis of left knee joint 7449827409 57401 M17.12 Pain of le ft knee joint 4233597620 29716 M25.562 Trochanter ic bursitis of left hip 6782983179 74105 M70.62 Pain in le ft sacroiliac joint 9997158339 4237559 M53.3 Low back pain 235419933 M54.50 Lumbar radiculopathy 128 414554 M54.16 [id number] Duarte Mora MD [facility] [place] [address] [place] [address] 11/20/2024 09:32:27 11/20/2024 10:22:36 Osteoarthritis of left knee joint 8610869213 78067 M17.12 Pain of le ft knee joint 2899640916 49036 M25.562 History of right total knee replacement 2222394191 124790 Z96.651 Pain in le ft sacroiliac joint 2385352765 8145530 M53.3 Lumbar radiculopathy 128 588876 M54.16 Low back pain 927253970 M54.50 Health Concerns Section Related Observation LastModified by Organization Detai ls LastModified Time None Recorded Concern Status LastModified by Organization Details LastModified Time None Recorded Advance Directives Directive None Recorded Payers Encounter Date Sequence Insurance Name Policy Number Policy Garay Covered Member ID Garay Member ID Guarantor Name 01/17/2024 1 [facility] - [employer] - [employer] - MEDICARE COMPLETE PLAN 2 (MEDICARE REPLACEMENT HMO) [id number] Shasta Jaxson Ali Hasan [id number] Shasta Farnsworth-Hassaba 01/17/2024 2 [place]ARE OR MEDICARE REPLACEMENT PRIMARY) Shasta MalaveHaskristy n [id number] Shasta Farnsworth-Hassaba 04/10/2024 1 [facility] - [employer] - [employer] - MEDICARE COMPLETE PLAN 2 (MEDICARE REPLACEMENT HMO) [id number] Shasta Jaxson Ali Hasan [id number] Shasta Farnsworth-Hasan 04/10/2024 2 [place] OR MEDICARE REPLACEMENT PRIMARY) Shasta MalaveHaskristy n [id number] Shasta Ali-Hasan 05/22/2024 1 [facility] - [employer] - [employer] - MEDICARE COMPLETE PLAN 2 (MEDICARE REPLACEMENT HMO) [id number] Shasta Jaxson Ali Hasan [id number] Shasta Ali-Hasan 05/22/2024 2 [place] OR MEDICARE REPLACEMENT PRIMARY) Shasta MalaveHasa n [id number] Shasta Ali-Hasan 09/25/2024 1 [facility] - [employer] - [employer] - MEDICARE COMPLETE PLAN 2 (MEDICARE REPLACEMENT HMO) [id number] Shasta Jaxson Ali Hasan [id number] Shasta Ali-Hasan 09/25/2024 2 [place] OR MEDICARE REPLACEMENT PRIMARY) Shasta MalaveHaskristy n [id number] Shasta Ali-Hasan 11/20/2024 1 [facility] - [employer] - [employer] - MEDICARE COMPLETE PLAN 2 (MEDICARE REPLACEMENT HMO) [id number] Shasta Obando [id number] Shasta [place] 11/20/2024 2 [place] OR MEDICARE REPLACEMENT PRIMARY) Shasta Gonzales n [id number] Shasta [place] Notes Date Note Type Note Provider Name and Address Organization Details Recorded Time 01/17/2024 text/html Patient returns for Synvisc-One injection [...] proceed with Synvisc-One today. CHIARA Arreguin [address] [facility] [address], [place], [address], [place] [facility] [employer] 01/17/2024 15:33:52 04/10/2024 text/html Patient returns with [...] everything is basically unchanged today. CHIARA Arreguin [address], [address], [place], [address], [facility] [employer] 04/10/2024 09:43:15 05/22/2024 text/html Patient returns complaining [...] last 6 months. CHIARA Arreguin [address], [place], [address], [employer] 05/22/2024 10:21:03 09/25/2024 text/html Patient returns complaining of left knee pain and left low back pain in the sacroiliac region. She has severe primary osteoarthritis of the left knee joint with [id number] changes in the medial compartment and mild varus deformity. The patellofemoral articulation also shows significant narrowing which is near [id number]. Her lumbar spine also shows significant degenerative changes and she has a mildly narrowed but not wcqe-xm-nmcy left hip femoroacetabular joint. Bony structures of [...] CHIARA Arreguin [address], [address], [place], [address], [employer] 09/25/2024 10:46:25 11/20/2024 text/html The patient retu rns for Synvisc-One injection into her left knee. She also has pain in the left sacroiliac region both are chronic in nature. She has severe primary osteoarthritis of the left knee joint with gpon-gl-[id number] changes in medial compartment mild varus deformity. Patellofemoral articulation also shows significant narrowing which is near lfyg-lj-[id number]. Lumbar spine shows significant degenerative changes injections have given her good relief previously denies any new trauma no new symptoms or complaints. Has no radicular pain down the leg no numbness or tingling or weakness no bowel or bladder symptoms. CHIARA Arreguin [address], [place], [address], [employer] 11/20/2024 09:50:42 OBGyn Episode No OBEpisode recorded.
--- OUTSIDE RECORDS SUMMARY | 2024-11-26 18:04 | XMS_ITS | Clinical Summary ---
Author Organization [facility] Address [address] [place] [address] Phone Care Team Providers Care Felling Bucking Supervisor Name Role Phone David Coppola MD Primary Care Provider [phone] Allergies Active Allergy Reactions Criticality Noted Date [...] Comments Blood Pressure 71/53 09/01/2020 2:54 PM MOTEL CLERK 148 /36 Pulse 72 09/01/2020 2:54 PM MOTEL CLERK Temperature 36.4 C (97.6 F) 09/01/2020 2:54 PM MOTEL CLERK Respiratory Rate - - Oxygen Saturation 97% 09/01/2020 2:54 PM MOTEL CLERK Inhaled Oxygen Concentration - - Weight 56.6 kg (124 lb 11.2 oz) 09/01/2020 2:54 PM MOTEL CLERK Height 144.8 cm (4' 9 ) 09/01/2020 2:54 PM MOTEL CLERK Body Mass Index 26.98 09/01/2020 2:54 PM MOTEL CLERK Plan of Treatment Health Maintenance Due Date [...] 04/09/2014, 04/09/2014 Insurance [place] [facility] [id number] Care Teams Felling Bucking Supervisor Relationship Specialty Start Date End Date David Coppola MD PCP - General Family Practice 05/14/20
--- OUTSIDE RECORDS SUMMARY | 2024-11-26 18:04 | XMS_ITS | Clinical Summary ---
Author Organization [facility] Address [address] [place] [address] Care Team Providers Care Clothing Worker Name Role Phone David Coppola MD Primary Care Provider +- [phone] David Coppola MD Unavailable [phone] David Coppola MD Unavailable [phone] Virginie Corea RN Unavailable [phone] Source Comments [facility],non-owned Affiliates and Associated Physician Practices is amultiple site organization consisting of ambulatory clinics and hospital sitesin [place], [place], [place] and [place]. This disclosure is being madepursuant to the Care Everywhere program and may not contain all information available regarding this patient. Last updated 18.[facility] Allergies Active Allergy Reactions Criticality Noted Date [...] (one) tablet by mouth once daily Active vitamin D, ergocalciferol , (DRISDOL) 1.25 MG (24157 UT) capsule Take 1 (one) capsule by mouth every 7 days (once a week) 06/09/20 19 Active sevelamer carbonate (RENVELA) 800 MG TAKE 3 TABLETS BY MOUTH THREE TIMES DAILY WITH MEALS 03/22/20 20 Active acetaminophen (TYLENOL) 500 MG capsule Take 2 (two) capsules by mouth Active atorvastatin (LIPITOR) 20 MG tablet 03/07/20 21 Active lidocaine-pril ocaine (EMLA) 2.5-2.5 % cream 12/15/19 21 Active loperamide (IMODIUM) 2 MG capsule 05/03/20 21 Active calcium carbonate (TUMS) 500 MG chew tablet Take 2 (two) tablets by mouth at bedtime Active ONETOUCH ULTRA test strip TEST 6 TIMES DAILY 07/21/19 22 Active NOVOTWIST PEN NEEDLE 32G X 5 MM MISC as directed 08/15/19 22 Active traZODone (DESYREL) 50 MG tablet Take 1 (one) tablet by mouth at bedtime Active famotidine (Pepcid) 40 MG tablet Take 1 (one) tablet by mouth once daily 03/16/20 22 Active denosumab (Prolia) 60 MG/ML SC injection Every 6 mos 03/09/20 22 Active carvedilol (Coreg) 6.25 MG tablet Take 3.12 mg by mouth 2 times daily with morning and evening meal 09/27/19 23 Active Coenzyme Q10 10 MG Active vitamin B-12 (Cyanocobalami n) 500 MCG tablet Take 1 (one) tablet by mouth Active clotrimazole (LOTRIMIN AF) 1 % lotion APPLY TO THE AFFECTED AND SURROUNDING AREAS OF SKIN BY TOPICAL ROUTE 2 TIMES PER DAY IN THE MORNING AND EVENING Active dicyclomine (Bentyl) 10 MG capsule 09/19/19 24 Active hylan (Synvisc One) 48 MG/6ML prefilled syringe ADMINISTERED IN DOCTORS OFFICE Active pantoprazole EC (Protonix) 40 MG tablet Take 1 (one) tablet by mouth every 12 hours 09/18/19 24 Active biotin 2.5 MG tablets Take by mouth once daily 10,000 mcg-1 tablet by mouth daily Active liraglutide (Victoza) 18 MG/3ML pen Inject 1.2 mg subcutaneously once daily Active liraglutide (VICTOZA) 18 MG/3ML pen Inject 1.2 mg subcutaneously every evening Sliding scale 025 Discontinu ed(List Clean-Up) clotrimazole (LOTRIMIN AF) 1 % cream 025 Discontinu ed(List Clean-Up) chlorhexidine (Peridex) 0.12 % solution 025 Discontinu ed(List Clean-Up) metroNIDAZOLE (Flagyl) 500 MG tablet Take 1 (one) tablet by mouth 2 times daily 11/08/19 025 Active Problems Problem Noted Date Diagnosed Date Encounter regarding vascular access for dialysis for end-stage renal disease 09/29/2022 ESRD (end stage renal disease) 04/02/2018 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 Pre-transplant evaluation for kidney transplant 12/10/2017 Overview (04/15/2018): Images from the original note were not included. Listing date: Not yet listed Referring Freelance Recruiter: Dr. Suarez Dialysis Type and Start Date: [...] lives with her Estela. She speaks fluent Swazi. She has 3 children who live in [place] and [facility]. Her support system is her and his [...] (Bezet) ms 462 ms Final Calculated R [place] degrees 82 degrees Final Calculated T axis degrees 53 degrees Final EKG Interp Final ATRIAL FIBRILLATION NONSPECIFIC ST ABNORMALITY , PROBABLY DIGITALIS EFFECT ABNORMAL ECG NO PREVIOUS ECGS AVAILABLE Confirmed by Fritz GANT, MIKE ([id number]), make up editor Joseph Ingram ([id number]) on 04/04/2018 1:32:49 PM Echo: 03/28/18 CONCLUSION: There is moderate concentric left ventricular hypertrophy. The left ventricular ejection fraction is estimated at 65 %. There are no regional wall motion abnormalities present. Estimated right ventricular systolic pressure is 39 mmHg. Severe biatrial enlargement Mild dilated proximal ascending aorta. DSE: n/a will need [facility] Cardiac Cath: Will need d/t length [...] Completed at OSH on 03/20/18 Cardiac Catheterization03/20/2018 [facility] Result Narrative PERIPHERAL ANGIOGRAM AND [...] groin hematoma, retroperitoneal bleed, vessel perforation; periprocedural [place], stroke, contrast induced nephropathy, and even . [...] artery access site 8. Moderate Sedation (CPT 17992) MODERATE SEDATION: Midazolam 2 mg , Fentanyl 50 mcg, start time 1157 stop time 1318, total direct [id number] monitoring of conscious sedation 81 minutes (CPT 00188) TRAINED OBSERVER: Mena Scruggs RN was trained office over for moderate sedation. ACCESS SITE: Right common femoral artery PROCEDURE: After obtaining informed consent, patient was brought to the lab engineer and prepped and draped in the usual sterile manner. After local anesthesia with lidocaine, right common femoral artery access was taken with micropuncture needle followed by insertion of a 5 Turkmen sheath over a 0.035 inch wire. Selective right common femoral angiogram with distal runoff was performed through the 5 Turkmen sheath. After this, a 5 Turkmen IM catheter was advanced in the distal abdominal aorta, distal abdominal aortogram with bilateral iliac runoff was performed. The same catheter was pointed towards the left common iliac artery, selective left common iliac angiogram with distal runoff was performed. During intervention, selective left common femoral angiogram and superficial femoral angiogram was performed using the long 6 Turkmen sheath. The angiographic findings and details of [...] intervention on the same vessel. The 5 Turkmen sheath was exchanged with a long 90 cm sheath over 035 glide wire. The tip of the long sheath was position in the proximal popliteal artery. Patient received heparin for procedural anticoagulation, ACT was monitored throughout the procedure. Patient also received aspirin loading dose of clopidogrel 600 mg in the lab engineer. The totally occluded, calcified left anterior tibial [...] received dental clearance PPD: Colonoscopy: Completed at [facility] 12/02/2015 Mammo: Pap: Dental: SW: 03/28/18 Clinical Social Work Impression: It is the impression of this social media strategist that Shasta Obando has several positive factors for Kidney transplant candidacy from a psychosocial perspective. Pt has a good understanding of her disease and motivation for kidney transplant. Pt appears to have adequate insurance and financial situation (children provide assistance as needed) for post transplant needs. Pt has identified adequate support system and appropriate discharge plan. No concerns regarding substance abuse identified. Plan: sand control worker to provide supportive services as needed. No f/u indicated at this time.Patient appears to be a reasonable candidate for transplant from a psychosocial perspective. Post transplant arrangement forms are needed prior to being listed. Psychiatric Consult Recommended: No Transplant Doll Wigs Hackler: Nicole Tomas LMSW RD: 03/28/18 BMI= 28.51, overweight - Pt is considered to be a good candidate for a Kidney Transplant from a Nutrition standpoint. Recommendations/Interventions: Pt instructed to continue to work with Renal RD at HD on diet and to be compliant. Lindsay Gardner Encounter for other preprocedural examination Overview (10/08/2017): Listing date: Not yet listed Referring Freelance Recruiter: Dr. Suarez Dialysis Type and Start Date: [...] lives with her Estela. She speaks fluent Swazi. She has 3 chilren who live in [place] and [facility]. Her support system is her and his [...] Transplant surgery appt: Consults: cardiology consult with [facility] Notes: Not yet presented Evaluation Testing Date and Results: Labs: PTH: A1c: Glucose: PSA: GFR: Serologies: CMV Igg: EBV Igg: Albumin: Tox Screen: PRA: Echo: DSE: Cardiac Cath: CXR: Pano: US: PPD: Negative at on 05/08/2016 Colonoscopy: Completed at [facility] 12/02/2015 Mammo: Pap: Dental: SW: RD: Abnormal finding on imaging 06/15/2015 Overview (06/15/2015): Filling defect on venography of central veins. Need to rule out aortic arch aneurysm. Complication of arteriovenous dialysis fistula PVD (peripheral vascular disease) Encounters Date Type Department Care Team Description 11/26/2024 Travel 11/11/2024 10:04 AM CDT - 11/11/2024 11:59 PM CDT Hospital Encounter [facility] Health Vascular Services [address], [address] [place] [address] David Buitrago MD [place], MD Corie Denton Mahbubul, MD Discharge Disposition: Home or Self Care 11/11/2024 Travel from Last 3 Months Immunizations Immunization Administration Dates Next Due Covid Moderna primary monova lent 12+ yr 0.5mL 11/04/2021,10/15/2020,09/17/2020 Family History Medical History Relation Name Comments [place] Brother 3 Heart Disease Father Hypertension Father [place] Father Hypertension Mother Relation Name Status Comments [...] on file 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 Gender Identity Not on file Sexual Orientation Not on file Last Filed Vital Signs Vital Sign Reading Time Taken Comments Blood Pressure 122/57 11/11/2024 11:13 AM CDT Pulse 60 11/11/2024 11:13 AM CDT Temperature 36.8 C (98.2 F) 11/11/2024 10:29 AM CDT Respiratory Rate 13 11/11/2024 11:13 AM CDT Oxygen Saturation 100% 11/11/2024 11:13 AM CDT Inhaled Oxygen Concentration - - Weight 49.9 kg (110 lb) 11/11/2024 10:29 AM CDT Height 142.2 cm (4' 8 ) 11/11/2024 10:29 AM CDT Body Mass Index 24.66 11/11/2024 10:29 AM CDT Plan of Treatment Upcoming Encounters Date Type Department Care Team (Late st Contact Info) Description 03/10/2025 11:00 AM CDT Appointment [facility] Vascular Services [address], [address] [place] [address] [place] [address] [place] [address] [place] [address] [facility] [address] [place] [address] Cristo Fontenot MD [address] [place] [address] 03/17/2025 1:00 PM CDT Procedure visit [facility] - [address] [phone] 03/17/2025 1:30 PM CDT Office Visit [facility] - GI [address], [place] [phone] Avis Dumont, HEAVY MACHINERY ASSEMBLER-DOLL SURGEON [address] [facility] [address] [place] [phone] Health Maintenance Due Date Last Done Comments BONE DENSITY TESTING 1946 DTAP/TDAP/TD VACCINES (1 - Tdap) 1965 PNEUMOCOCCAL VACCINE 50+ (1 of 2 - PCV) 1965 HEPATITIS B VACCINE (1 of 3 - Risk Dialysis 4-dose series) 1966 ZOSTER VACCINE (1 of 2) 1996 Respiratory Syncytial Virus (RSV) Vaccine Pt: or over 60 yrs (1 - 1-dose 75+ series) 2021 COVID-19 VACCINE ( season) 2024 11/04/2021, 10/15/2020, 09/17/2020 DEPRESSION SCREENING 07/09/2024 MEDICARE AWV CALENDAR YEAR 2024 INFLUENZA VACCINE (Season Ended) 2025 03/22/2018, 04/08/2017, 03/23/2015, Additional history exists HEPATITIS C SCREENING Completed 08/29/2024 , 03/28/2018, 07/20/2015 HIB VACCINE Aged Out No longer eligi [...] this topic Medical Devices Implanted Type Area Instructional Systems Designer Device Identifier Shelf Expiration Date Model / Serial / Lot Duraflow 2 Hemodialysis Catheter Implanted:Qty: 1 on 02/22/2015 by David Buitrago MD at [facility] Right: Chest 06/07/2017 [id number] / / [id number] [employer] Acuseal Vascular Graft Implanted:Qty: 1 on 04/02/2018 by David Buitrago MD at [facility] Left: Arm 10/29/2020 [id number] / / [id number] Procedures Procedure Name Priority Date/Time Associated Diagnosis Comments CARDIAC RHYTHM STRIP ORDER 11/13/2024 7:39 PM CDT IR ANGIO AV SHUNT IMAGING Routine 11/11/2024 11:07 AM CDT Encounter regarding vascular access for dialysis for end-stage renal disease (HCC) HEPATITIS C ANTIBODY Routine 03/28/2018 1:53 PM CDT Abnormal finding on imaging Encounter for other preprocedural examination Pre-transplant evaluation for kidney transplant PVD (peripheral vascular disease) from Last 3 Months or Most Recently Relevant to Health Maintenance Results * CARDIAC RHYTHM STRIP ORDER (11/13/2024 7:39 PM CDT) Narrative 11/13/2024 7:39 PM CDT Ordered by an unspecified provider. us Scanned Document CARDIAC SERVICES ORDERABLES Fin al Result * IR Angio Av Shunt Imaging (11/11/2024 11:07 AM CDT) Anatomical Region Laterality Modality Lower Extremity, Upper Extremity, Chest X-Ray Angiography Narrative 11/11/2024 11:08 AM CDT Cristo Fontenot MD 11/11/2024 11:11 AM Interventional Radiology Post-Operative/Procedure Progress Notes Date: 11/11/2024 Surgeon: Cristo Fontenot MD Tailings Man: none Pre-Procedure diagnosis: Prolonged bleeding after access Time out and final pre-procedure assessment completed immediately prior to start of procedure. Medications reviewed. Post-Procedure diagnosis: Same Anesthesia: Local and IV Sedation; 50 mcg of fentanyl Technical Procedure Performed: Limited sonographic evaluation of right arm AV fistula followed by ultrasound-guided access. The DICOM ultrasound images were documented in PACS. 2. Selective right arm fistulogram 3. Right peripheral venoplasty of in stent greater than 70% stenosis with an 8 mm x 4 cm Conquest balloon 4. Right peripheral venoplasty of long segment greater than 80% juxta anastomotic stenosis with a 6 mm x 4 cm low-profile balloon Total contrast: 20 mL of Isovue 300 Total radiation dose: 3.9 mGy Complications: None Findings: An informed consent was obtained. A time-out was performed. The patient's airway and condition was evaluated immediately prior to sedation and/or analgesia. The patient was placed supine on the angiographic table and her right arm was prepped and draped in the usual sterile manner. Following the administration of subcutaneous lidocaine, the fistula was accessed antegrade with a micropuncture needle under direct ultrasound guidance. The ultrasound images demonstrated long segment juxta anastomotic stenosis without any thrombus. The needle was exchanged over the wire for a transitional dilator. Contrast was injected through the dilator to perform selective right arm fistulogram. Sequential DSA of the central venous outflow was performed as well as a reflux fistulogram demonstrating patent central venous stent. Recurrent greater than 50% multifocal peripheral arm stenosis and long segment greater than 80% juxta anastomotic stenosis were seen. The dilator was then exchanged over the wire for a short 6 Turkmen sheath. Over the wire, peripheral venoplasty was performed with an 8 mm x 4 cm Conquest balloon and a 6 mm x 4 cm low-profile balloon. A final fistulogram demonstrated excellent response without any extravasation. All of the catheters, wires, and sheath were removed. Adequate hemostasis at the puncture site was achieved using manual compression. A sterile dressing was applied. Disposition: OPS Status: Stable Drain or Pack: None Additional information/Complications: None Estimated blood loss: negligible Specimen(s) removed: No Specimen Cristo Fontenot MD IR ORDERABLES Final Result * HEPATITIS C ANTIBODY (03/28/2018 1:53 PM CDT) Hepatitis C Antibody Non-react glen Non-reac tive 03/28/2018 2:50 PM CDT [facility] Comment: Hepatitis C Antibody screen indicates [...] 1:53 PM CDT 03/28/2018 2:05 PM CDT LloydMi Hines MD LAB - CHEMISTRY [place] [address], [facility] [phone] from Last 3 Months or Most Recently Relevant to Health Maintenance Insurance [place] [address] [place] [address] [place] [address] Advance Directives Documents on File Type Date Recorded Patient Wrapper Counter Expl anation Adv Directive/Living Will/POA 09/18/2017 * Full Code (Latest Code Status on File) Date Activated Date Inactivated Comments 02/22/2015 4:27 PM 02/23/2015 5:53 PM Care Teams Clothing Worker Relationship Specialty Start Date End Date David Coppola MD [address] [place] [phone] PCP - General 08/15/16 David Coppola MD [address] [place] [phone] Family Medicine 02/08/15 David Coppola MD [facility] [place] [address] Family Medicine 08/15/16 Virginie Corea, ABENA Parcel Post Officer 02/23/15
--- OUTSIDE RECORDS SUMMARY | 2024-11-26 18:04 | XMS_ITS | Encounter Summary ---
Author Organization [facility] Healthcare Address [address] [place] [address] Care Team Providers Care Shallot Packer Name Role Phone David Coppola MD Primary Care Provider [phone] Jacob Suarez MD Unavailable [phone] Marnie Lara RN Unavailable [phone] Ros Seay MD Unavailable [phone] Johana Edmond RN Unavailable Abdifatah Villa MD Unavailable Issa Clements MD Unavailable [phone] Encounter Details Date Type Department Care Team (Late st Contact Info) Description 12/11/2018 Orders Only [facility] Health Information Management [address] [place] [address] Scanning, Provider Social History Tobacco Use Types Packs/Day Years Used Date Smoking Tobacco: Never Smokeless Tobacco: Never Alcohol Use Standard Drinks/Week Comments No 0 (1 standard drink = 0.6 oz pur e alcohol) Comments No Sex and Gender Information Value Date Recorded Sex Assigned at Not on file 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 Gender Identity Not on file Sexual [...] Influenza, adult 09/04/2019 09/04/2019 09/11/2019 3:05 AM CYCLING INSTRUCTOR Abscess/Wound/Cellulitis 10/16/2019 10/16/2019 3:05 AM CDT documented as of this encounter Care Teams Shallot Packer Relationship Specialty Start Date End Date David Coppola MD PCP - General Family Medicine 10/29/17 Jacob Suarez MD Referring Physician Nephrology 12/20/18 Marnie Lara RN Registered Nurse Woven Wood Shade Assembler 12/20/1809/03 Ros Seay MD Washing Machine Loader And Puller Cardiology 03/05/19 Johana Edmond, RN [address] [facility] [address] [place] [address] Woven Wood Shade Assembler 08/21/19 Abdifatah Villa MD [address] [facility] [address] [place] [address] Consulting Physician Cardiology 09/01/20 Issa Clements MD [address] [facility] [address] [place] [address] Referring Physician General Surgery 09/01/20 documented as of this encounter
--- OUTSIDE RECORDS SUMMARY | 2024-11-26 18:04 | XMS_ITS | Encounter Summary ---
Author Organization [facility] Address [address] [place] [address] Phone Care Team Providers Care Printing Roller Polisher Name Role Phone David Coppola MD Primary Care Provider [phone] Jacob Suarez MD Unavailable Marnie Lara RN Unavailable Ros Seay MD Unavailable Johana Edmond RN Unavailable Abdifatah Villa MD Unavailable Issa Clements MD Unavailable [phone] Encounter Details Date Type Department Care Team (Late st Contact Info) Description 05/13/2018 Telephone [facility] Cardiology [address] [facility] Advanced Medicine 8th [place] [address] [place] [address] Cameron Haro MD [address] [place] [address] Social History Tobacco Use Types Packs/Day Years Used Date Smoking Tobacco: Never Smokeless Tobacco: Never Alcohol Use Standard Drinks/Week Comments No 0 (1 standard drink = 0.6 oz pur e alcohol) Comments No Sex and Gender Information Value Date Recorded Sex Assigned at Not on file 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 [address] [place] [address] Sagger Preparer 08/21/19 Abdifatah Villa MD [address] [facility] [address] [place] [address] Consulting Physician Cardiology 09/01/20 Issa Clements MD [address] [facility] [address] [place] [address] Referring Physician General Surgery 09/01/20 documented as of this encounter
--- OUTSIDE RECORDS SUMMARY | 2024-11-26 18:04 | XMS_ITS | Encounter Summary ---
Author Organization [facility] Address [address] [facility] [place] [address] Care Team Providers Care Precipitator Operator Name Role Phone David Coppola MD Primary Care Provider + [phone] David Coppola MD Unavailable [phone] David Coppola MD Unavailable [phone] Virginie Corea RN Unavailable [phone] Encounter Details Date Type Department Care Team (Late st Contact Info) Description 03/19/2023 Telephone [facility] . 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 [address] [place] [phone] [place] [address] [facility] [address] [place] [phone] Cristo Fontenot MD [address] [place] [address] 03/17/2025 1:00 PM CDT Procedure visit [facility] [address] [place] [phone] 03/17/2025 1:30 PM CDT Office Visit [facility] [address] [place] [phone] Avis Dumont, DECK BUILDER-MAINTENANCE AIDE [address] [place] [address] documented as of this encounter Visit Diagnoses Not on filedocumented in this encounter Care Teams Precipitator Operator Relationship Specialty Start Date End Date David Coppola MD [address] [place] [phone] PCP - General 08/15/16 David Coppola MD [address] [place] [phone] Family Medicine 02/08/15 David Coppola MD [address] [place] [phone] Family Medicine 08/15/16 Virginie Corea, ABENA Firer Locomotive Crane 02/23/15 documented as of this encounter
--- OUTSIDE RECORDS SUMMARY | 2024-11-26 18:04 | XMS_ITS | Encounter Summary ---
Author Organization [facility] Address [address] [facility] [address] Care Team Providers Care Pmp Name Role Phone David Coppola MD Primary Care Provider + [phone] David Coppola MD Unavailable [phone] David Coppola MD Unavailable [phone] Virginie Corea RN Unavailable [phone] Encounter Details Date Type Department Care Team (Latest Contact Info) Description 11/26/2024 Travel Social History Tobacco Use Types Packs/Day Years Used Date Smoking Tobacco: Never Smokeless Tobacco: Never Alcohol Use Standard Drinks/Week Comments No 0 (1 standard drink = 0.6 oz pur e alcohol) Comments No Sex and Gender Information Value Date Recorded Sex Assigned at Not on file 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 [address] [facility], [address] [place], [place] [phone] [place] [address] [facility] [address] [place] [address] [place] [address] [facility] [address] [place] [address] Cristo Fontenot MD [address] [place] [address] 03/17/2025 1:00 PM CDT [facility] [address] [place] [phone] 03/17/2025 1:30 PM CDT Office Visit [facility] - GI [address] [place] [phone] Avis Dumont, DIATHERMY EQUIPMENT REPAIRER-STOCK HANGER [address] [place] [address] [place] [phone] documented as of this encounter Visit Diagnoses Not on filedocumented in this encounter Care Teams Pmp Relationship Specialty Start Date End Date David Coppola MD [address] [place] [phone] PCP - General 08/15/16 David Coppola MD [address] [place] [phone] [facility] Medicine 02/08/15 David Coppola MD [facility] [place] [phone] [facility] 08/15/16 Virginie Corea, ABENA Bow Stapler 02/23/15 documented as of this encounter
--- OUTSIDE RECORDS SUMMARY | 2024-11-26 18:05 | XMS_ITS | Clinical Summary ---
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 Gender Identity Not on file Sexual [...] 10/27/2021 10:10 AM CDT Plan of Treatment Upcoming Encounters Date Type Department Care Team (Late st Contact Info) Description 11/27/2024 11:00 AM CDT Appointment [address] [address] Lindsay Boyd RN [place] 11/28/2024 10:30 AM CDT Home Care Visit [facility] [address] Gillian June PT [place] 11/28/2024 2:00 PM CDT Home Care Visit [facility] [address] Claudia Aviles OT Health Maintenance Due Date Last Done Comments DEXA Bone Density 1945 Hepatitis B Immunization (2 of 3 - 19+ 3-dose series) 05/24/2018 04/26/2018 Zoster Immunization (2 of 2) 01/06/2022 11/11/2021 SARS-COV-2 Immunization ( season) 2024 03/27/2024, 05/16/2023, 05/05/2022, Additional history exists Hepatitis C Virus (HCV) Screening Completed 03/28/2018 Pneumococcal Immunization (50+ years) Completed 11/11/2021, 05/08/2019, 04/09/2014 Respiratory Syncytial Virus (RSV) Immunization (Adult) Completed 07/13/2023 DTaP/Tdap/Td Immunization Discontinued 03/06/2024 Influenza Immunization Completed 4, 05/02/2023, 03/24/2020, Additional history exists TdaP Immunization Completed 03/06/2024 Human Papillomavirus (HPV) Immunization Aged Out No longer eligible based on patient's age to complete this topic Meningococcal Immunization (ACWY) Aged Out No longer eligible based on patient's age to complete this topic Rotavirus Immunization Aged Out No lo nger eligible based on patient's age to complete this topic Insurance MEDICARE C [employer] Care Teams 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
--- OUTSIDE RECORDS SUMMARY | 2024-11-26 18:05 | XMS_ITS | Continuity of Care Document ---
Author Organization [place] - [facility] Address [address] [place] [address] Care Team Providers Care White Mixing Operator Name Role Phone NYO PENN Primary Care Provider NOY PENN Referring Provider [phone] Assessment Encounter Date Assessment Date Assessment LastModified by Organization Details LastModified Time 11/26/2024 11/26/2024 This note is dictated and transcribed by [employer]. [employer]ing [employer] Feeder variances may occur. Despite proofreading, typographical errors may occur. Occasional wrong-word or '[id number]' substitutions may have occurred due to the inherent limitations of voice recording. Read the chart carefully and recognize, using context, where substitutions have occurred. [email or web address] Not available 11/26/2024 15:35:02 Plan of Treatment Reminders Order Date Submit Date Provider Last Modified By Organization Details Last Modified Time Details Appointments Any 15 025 10:45AM Nir Boo DPM Not available Not available Not available Any 15 025 10:30AM Nir Boo DPM Not available Not available Not available Lab None record ed. Referral None record ed. Procedures None record ed. Surgeries None record ed. Imaging None record ed. Medication Orders None record ed. Patient TargetsNo targets recorded. Patient InstructionsNo instructions recorded. Reason for Referral None Reported. 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 581968647 Active 2019 Not Available [facility] 3 01:04:36 Type 2 diabetes mellitus 90590089 Active 2019 Not Available [facility] 3 01:04:36 Long-term current use of anticoagul ant 108145524 Active 2018 Not Available [facility] 3 01:04:36 Diabetes mellitus 84648030 Active Not Available [facility] 3 01:04:36 Dystrophia unguium 72019083 Active 2023 Nir Boo DPM [address], [place], [address] , [facility] 4 10:49:49 Peripheral arterial occlusive disease 922647727 Active 2023 Nir Boo DPM [address], [address], [place], [address] , [facility] 4 10:45:01 Pressure injury of heel 554454973 Active 2024 Nir Boo DPM [address], [place], [address] , [facility] 5 17:15:17 Foot ulcer due to type 2 diabetes mellitus 7978447364446 Active 2024 Nir Boo DPM [address], [address], [place], [address] , [facility] 5 10:24:10 Problem Notes None recorded. Procedures Surgical History Date Name Laterality Status Provider Name and Address Organization Details Recorded Time 5 Wound Care-Podiatry completed Satya Hodges RN [place] [employer] 11/26/2024 13:08:11 5 Wound Care-Podiatry completed Theresa Hudson RN [place] - [facility] 11/17/2024 10:40:25 5 Wound Care-Podiatry completed Nir Boo DPM [address], [address], [place], [address], [facility] 11/12/2024 10:27:54 5 Wound Care-Podiatry completed Kierra Shaw [facility] 11/05/2024 09:58:53 5 Wound Care-Podiatry completed Theresa Hudson RN [facility] [employer] [facility] 10/29/2024 10:15:59 5 Wound Care-Podiatry completed Theresa Hudson RN [facility] [employer] [facility] 10/22/2024 14:11:35 5 Wound Care-Podiatry completed Theresa Hudson RN [facility] [employer] [facility] 10/22/2024 10:21:47 5 Nail Debridement completed Nir Boo DPM [address], [place], [address], [facility] 08/21/2024 17:55:22 4 Nail Debridement completed Nir Boo DPM [address], [address], [place], [address], [facility] 03/20/2024 10:44:17 4 Plantar Fascia Injection Left Foot completed Nir Boo DPM [address], [address], [place], [address], [facility] 01/31/2024 10:17:02 4 Nail Debridement completed Nir Boo DPM [address], [place], [address], [facility] 12/20/2023 10:08:42 4 Nail Debridement completed Nir Boo DPM [address], [place], [address], [facility] 09/20/2023 13:30:21 Imaging Results None recorded. Procedure Notes None recorded. Medical Equipment None Reported. Allergies No known drug allergies Medications Name Sig Start Date Stop Date Status Note LastModified by Organization Details LastModified Time relion pen needles 32g x 4mm 32g x 4 mm misc active Not Available Not Available No t Available losartan 50 mg tablet TAKE 1 TABLET BY MOUTH ONCE DAILY AT BEDTIME 09/19 completed Not Available Not Available Not Available celecoxib 200 mg capsule 09/19 completed Not Available Not Available Not Available Santyl 250 unit/gram topical ointment APPLY TO RIGHT FOOT WOUND ONCE DAILY WITH A BULKY DRY DRESSING 09/19 completed Not Available Not Available Not Available amoxicillin 500 mg capsule TAKE 1 CAPSULE BY MOUTH EVERY 8 HOURS 08/21 completed Not Available Not Available Not Available pioglitazon e 15 mg tablet 09/19 completed Not Available Not Available Not Available atorvastati n 40 mg tablet TAKE 1 TABLET BY MOUTH ONCE DAILY active Not Available Not Available No t Available imipramine 50 mg tablet TAKE 1 TABLET BY MOUTH ONCE DAILY 09/19 completed Not Available Not Available Not Available carvedilol 25 mg tablet TAKE 1 TABLET BY MOUTH TWICE DAILY WITH FOOD 09/19 completed Not Available Not Available Not Available carvedilol 6.25 mg tablet TAKE 1 TABLET BY MOUTH TWICE DAILY WITH MEALS 12/19 completed Not Available Not Available Not Available prednisone 10 mg tablet TAKE 1 TABLET BY MOUT 3 TIMES DAILY FOR 3 DAYS, THEN 1 TABLET TWICE DAILY FOR 2 DAYS, THEN 1 TABLET ONCE DAILY FOR 1 DAY 05/01 completed Not Available Not Available Not Available atorvastati n 20 mg tablet TAKE 1 TABLET BY MOUTH ONCE DAILY 05/01 completed Not Available Not Available Not Available carvedilol 12.5 mg tablet TAKE 1 TABLET BY MOUTH TWICE DAILY 09/19 completed Not Available Not Available Not Available clindamycin HCl 300 mg capsule TAKE 1 CAPSULE BY MOUTH EVERY 6 HOURS UNTIL GONE 09/19 completed Not Available Not Available Not Available albuterol sulfate 2.5 mg/3 mL (0.083 %) solution for nebulizatio n 09/19 completed Not Available Not Available Not Available loperamide 2 mg capsule 05/01 completed Not Available Not Available Not Available trazodone 50 mg tablet TAKE 2 TABLETS BY MOUTH ONCE DAILY AT BEDTIME active Not Available Not Available No t Available azithromyci n 250 mg tablet TAKE 1 TABLET BY MOUTH ONCE DAILY active Not Available Not Available No t Available hydrocodone 5 mg-acetamin ophen 325 mg tablet TAKE 1 TO 2 TABLETS BY MOUTH EVERY 6 HOURS NEEDED FOR PAIN 09/19 completed Not Available Not Available Not Available sucralfate 1 gram tablet TAKE 1 TABLET BY MOUTH THREE TIMES DAILY 30 MINUTES BEFORE MEALS 09/19 completed Not Available Not Available Not Available lisinopril 20 mg tablet 02/26 completed Not Available Not Available Not Available ondansetron HCl 4 mg tablet 09/19 completed Not Available Not Available Not Available famotidine 40 mg tablet TAKE 1 TABLET BY MOUTH ONCE DAILY 08/21 completed Not Available Not Available Not Available Tubersol 5 tub. unit/0.1 mL intradermal injection solution Inject by intraderm al route. active Not Available Not Available No t Available metronidazo le 250 mg tablet TAKE 1 TABLET BY MOUTH THREE TIMES DAILY FOR 10 DAYS 09/19 completed Not Available Not Available Not Available metronidazo le 500 mg tablet TAKE 1 TABLET BY MOUTH TWICE DAILY FOR 10 DAYS active Not Available Not Available No t Available acetaminoph en 300 mg-codeine 30 mg tablet TAKE 1 TABLET BY MOUTH EVERY 6 HOURS NEEDED FOR PAIN active Not Available Not Available No t Available ciprofloxac in 250 mg tablet TAKE 1 TABLET BY MOUTH TWICE DAILY FOR 10 DAYS 09/19 completed Not Available Not Available Not Available amlodipine 5 mg tablet 09/19 completed Not Available Not Available Not Available Plavix 75 mg tablet Take 1 tablet every day by oral route. active Not Available Not Available No t Available ciprofloxac in 500 mg tablet 02/06 completed Not Available Not Available Not Available sulfamethox azole 800 mg-trimetho prim 160 mg tablet TAKE 1 TABLET BY MOUTH EVERY 12 HOURS 09/19 completed Not Available Not Available Not Available tramadol 50 mg tablet TAKE 1 TABLET BY MOUTH EVERY 6 HOURS NEEDED FOR PAIN 09/19 completed Not Available Not Available Not Available carvedilol 3.125 mg tablet TAKE 1 TABLET BY MOUTH TWICE DAILY WITH MEALS active Not Available Not Available No t Available lidocaine-p rilocaine 2.5 %-2.5 % topical cream active Not Available Not Available Not Available amoxicillin 875 mg tablet TAKE 1 TABLET BY MOUTH TWICE DAILY UNTIL GONE 09/19 completed Not Available Not Available Not Available dicyclomine 20 mg tablet active Not Available Not Available Not Available OneTouch Ultra Test strips USE 1 STRIP TO CHECK GLUCOSE SIX TIMES DAILY active Not Available Not Available No t Available doxycycline monohydrate 100 mg capsule TAKE 1 CAPSULE BY MOUTH TWICE DAILY WITH MEALS FOR 7 DAYS active Not Available Not Available No t Available hydrocodone 7.5 mg-acetamin ophen 325 mg tablet TAKE 1 TABLET BY MOUTH EVERY 6 HOURS NEEDED FOR PAIN 09/19 completed Not Available Not Available Not Available pantoprazol e 40 mg tablet,jan yed release TAKE 1 TABLET BY MOUTH EVERY 12 HOURS active Not Available Not Available No t Available ferrous sulfate 325 mg (65 mg iron) tablet TAKE 1 TABLET BY MOUTH TWICE DAILY 09/19 completed Not Available Not Available Not Available esomeprazol e magnesium 40 mg capsule,del ayed release TAKE 1 CAPSULE BY MOUTH ONCE DAILY 09/19 completed Not Available Not Available Not Available tobramycin 0.3 % eye drops INSTILL 1 DROP INTO EACH EYE EVERY 4 HOURS 05/01 completed Not Available Not Available Not Available lisinopril 10 mg tablet TAKE 1 TABLET BY MOUTH ONCE DAILY WITH SUPPER active Not Available Not Available No t Available warfarin 5 mg tablet 09/19 completed Not Available Not Available Not Available losartan 25 mg tablet TAKE 1 TABLET BY MOUTH ONCE DAILY 09/19 completed Not Available Not Available Not Available docusate sodium 100 mg capsule Take 1 capsule every day by oral route. active Not Available Not Available No t Available gabapentin 300 mg capsule TAKE 1 CAPSULE BY MOUTH THREE TIMES DAILY 09/19 completed Not Available Not Available Not Available aspirin 81 mg chewable tablet CHEW AND SWALLOW 1 TABLET BY MOUTH ONCE DAILY active Not Available Not Available No t Available irbesartan 75 mg tablet TAKE 1 TABLET BY MOUTH ONCE DAILY AT NOON 09/19 completed Not Available Not Available Not Available amoxicillin 250 mg capsule 02/06 completed Not Available Not Available Not Available morphine ER 15 mg tablet,exte nded release TAKE 1 TABLET BY MOUTH EVERY 12 HOURS 09/19 completed Not Available Not Available Not Available mupirocin 2 % topical ointment APPLY A SMALL AMOUNT TO THE TIP OF LEFT THIRD TOE DAILY 09/19 completed Not Available Not Available Not Available gabapentin 100 mg capsule TAKE 1 CAPSULE BY MOUTH THREE TIMES DAILY 09/19 completed Not Available Not Available Not Available ergocalcife rol (vitamin D2) 1,250 mcg (50,000 unit) capsule TAKE 1 CAPSULE BY MOUTH ONCE A WEEK active Not Available Not Available No t Available warfarin 1 mg tablet 09/19 completed Not Available Not Available Not Available levofloxaci n 500 mg tablet TAKE ONE TABLET BY MOUTH EVERY 48 HOURS. START TOMORROW active Not Available Not Available No t Available lovastatin 20 mg tablet TAKE 1 TABLET BY MOUTH ONCE DAILY 09/19 completed Not Available Not Available Not Available methylpredn isolone 4 mg tablets in a dose pack 07/10 completed Not Available Not Available Not Available ondansetron 4 mg disintegrat ing tablet Place 2 tablets twice a day by transling ual route. active Not Available Not Available No t Available losartan 100 mg tablet 09/19 completed Not Available Not Available Not Available dicyclomine 10 mg capsule TAKE 1 CAPSULE BY MOUTH TWICE DAILY NEEDED FOR ABDOMINAL PAIN 08/21 completed Not Available Not Available Not Available clotrimazol e 1 % lotion APPLY TO THE AFFECTED AND SURROUNDI NG AREAS OF SKIN BY TOPICAL ROUTE 2 TIMES PER DAY IN THE MORNING AND EVENING active Not Available Not Available No t Available ipratropium bromide 0.02 % solution for inhalation INHALE 1 VIAL IN NEBULIZER EVERY 6 HOURS NEEDED FOR SHORTNESS OF BREATH FOR WHEEZING 09/19 completed Not Available Not Available Not Available amoxicillin 875 mg-potassiu m clavulanate 125 mg tablet 02/23 completed Not Available Not Available Not Available amoxicillin 500 mg-potassiu m clavulanate 125 mg tablet 02/06 completed Not Available Not Available Not Available tobramycin 0.3 %-dexametha sone 0.1 % eye drops,suspe nsion 08/21 completed Not Available Not Available Not Available oxycodone 5 mg tablet TAKE 1/2 (ONE-HALF ) TABLET BY MOUTH EVERY 4 HOURS NEEDED FOR SEVERE PAIN active Not Available Not Available No t Available cholestyram ine (with sugar) 4 gram oral powder MIX 4 GRAMS OF POWDER WITH LIQUID AND DRINK BY MOUTH WITH FOOD. AVOID OTHER MEDS WITHIN 1 HOUR BEFORE OR 4-6 HOURS AFTER DOSE. 09/19 completed Not Available Not Available Not Available Sensipar 30 mg tablet 09/19 completed Not Available Not Available Not Available calcium acetate(arjun sphate binders) 667 mg capsule 09/19 completed Not Available Not Available Not Available BD Ultra-Fine Mini Pen Needle 31 gauge x /16 USE DIRECTED 09/19 completed Not Available Not Available Not Available Lyrica 75 mg capsule 02/26 completed Not Available Not Available Not Available chlorhexidi ne gluconate 0.12 % mouthwash SWISH WITH 30ML OF SOLUTION BY MOUTH FOR 30 SECONDS EVERY 8 HOURS THEN EXPECTORA TE. 12/19 completed Not Available Not Available Not Available Vitamin B-12 active Not Available Not Available Not Available B complex-vit perez C-folic acid 08/21 completed Not Available Not Available Not Available coenzyme Q10 08/21 completed Not Available Not Available Not Available Santyl active Not Available Not Availa ble Not Available ProAir HFA 90 mcg/actuati on aerosol inhaler INHALE 2 PUFFS BY MOUTH 4 TIMES DAILY NEEDED FOR SHORTNESS OF BREATH FOR WHEEZING 09/19 completed Not Available Not Available Not Available Januvia 25 mg tablet 09/19 completed Not Available Not Available Not Available Januvia 50 mg tablet 09/19 completed Not Available Not Available Not Available Januvia 100 mg tablet TAKE 1 TABLET BY MOUTH ONCE DAILY active Not Available Not Available No t Available sevelamer carbonate 800 mg tablet TAKE 1 TABLET BY MOUTH THREE TIMES DAILY WITH MEALS active Not Available Not Available No t Available Humalog KwikPen (U-100) Insulin 100 unit/mL subcutaneou s Inject by subcutane ous route. active Not Available Not Available No t Available Synvisc-One 48 mg/6 mL intra-artic ular syringe 05/01 completed Not Available Not Available Not Available Besivance 0.6 % eye drops,suspe nsion 09/19 completed Not Available Not Available Not Available Triphrocaps 1 mg capsule TAKE 1 CAPSULE BY MOUTH ONCE DAILY active Not Available Not Available No t Available liraglutide 0.6 mg/0.1 mL (18 mg/3 mL) subcutaneou s pen injector Inject by subcutane ous route. active Not Available Not Available No t Available pen needle, diabetic 32 gauge x USE DIRECTED active Not Available Not Available No t Available Prolia 60 mg/mL subcutaneou s syringe INJECT 1ML EVERY 6 MONTHS DIRECTED 08/21 completed Not Available Not Available Not Available NovoTwist 32 gauge x 1/5 needle USE DIRECTED 08/21 completed Not Available Not Available Not Available Lotemax 0.5 % eye gel drops 09/19 completed Not Available Not Available Not Available Eliquis 2.5 mg tablet 09/19 completed Not Available Not Available Not Available Prolensa 0.07 % eye drops 09/19 completed Not Available Not Available Not Available [...] TO CHECK GLUCOSE SIX TIMES DAILY DIRECTED 09/19 completed Not Available Not Available Not Available Lokelma 5 gram oral powder packet TAKE ONE DOSE BY MOUTH TONIGHT 08/21 completed Not Available Not Available Not Available Vitals Date Recorded Body height Heart rate Respiratory rate Body temperature Oxygen saturation Oxygen saturation in Arterial blood by Pulse oximetry Provider Name and Address Organization Details Last Updated DateTime 5 142.24 cm 71 /min 17 /min 98.6 [degF] 96 % 96 % Kierra [facility] [employer] [facility] 5 12:19:19 Social History None recorded. Functional Status None recorded. Mental Status None recorded. Family History Relationship Description Onset Age of this Age Resolved Age Notes LastModified by Organization Details LastModified Time Mother Diabetes mellitus Not available 01/07 09:54:09 Medical History Condition Response DIABETES, TYPE Y ARTHRITIS Y HYPERTENSION Y Gynecological HistoryNo gynecological history recorded. Obstetrics History GPAL:G 0 P 0 0 0 0 Past Encounters Encounter ID Performer Location Encounter Start Date Encounter Closed Date Diagnosis/Indication Diagnosis SNOMED-CT Code Diagnosis ICD10 Code Diagnosis Note [id number] [facility] [address] [place] [address] 10/29/2024 09:41:18 10/29/2024 11:20:00 Foot ulcer due to type 2 diabetes mellitus 8873632566 100 E11.621 right heeldaily dressings with offloading at all timesmonit or for signs of infection at present seek medical attention immediatel yObtain non-invasi ve vascular testingedu cated on [facility] [employer] orderedfol low-up 1 week Peripheral arterial occlusive disease 048487160 I73.9 obtain Doppler and MELISSA- [facility] [id number] [facility] [address] [place] [address] 11/05/2024 09:38:31 11/05/2024 13:43:50 Foot ulcer due to type 2 diabetes mellitus 0950213099 100 E11.621 right heeldaily dressings with offloading at all timesmonit or for signs of infection at present seek medical attention immediatel yObtain non-invasi ve vascular testingedu cated on [facility] [employer] orderedfol low-up 1 week Peripheral arterial occlusive disease 419869604 I73.9 obtain Doppler and MELISSA- to ensure adequate wound healing [id number] [facility] [address] [place] [address] 11/12/2024 09:40:07 11/13/2024 10:37:23 Foot ulcer due to type 2 diabetes mellitus 3318358362 100 E11.621 right heeldaily dressings with offloading at all timesmonit or for signs of infection at present seek medical attention immediatel yObtain non-invasi ve vascular testingedu cated on [facility] [employer] orderedfol low-up 1 week Peripheral arterial occlusive disease 212306264 I73.9 obtain Doppler and MELISSA- to ensure adequate wound healing [id number] [facility] [address] [place] [address] 11/17/2024 09:38:37 11/17/2024 16:59:15 [id number] [facility] [address] [place] [address] 11/26/2024 11:58:09 11/26/2024 16:02:40 Foot ulcer due to type 2 diabetes mellitus 5375585262 100 E11.621 right heeldaily dressings with offloading at all timesmonit or for signs of infection at present seek medical attention immediatel yObtain non-invasi ve vascular testingedu cated on [facility] [employer] supplies orderedfol low-up 1 week Peripheral arterial occlusive disease 361526315 I73.9 successful stenting with angio right leg last week Health Concerns Section Related Observation LastModified by Organization Detai ls LastModified Time None Recorded Concern Status LastModified by Organization Details LastModified Time None Recorded Payers Encounter Date Sequence Insurance Name Policy Number Policy Garay Covered Member ID Garay Member ID Guarantor Name 11/26/2024 2 [place]: [facility] Shasta Wheatley [id number] Shasta Wheatley 11/26/2024 1 [facility] (MEDICARE REPLACEMENT/A DVANTAGE - PPO) [id number] Shasta Wheatley [id number] Shasta Wheatley Notes Date Note Type Note Provider Name and Address Organization Details Recorded Time 11/26/2024 text/html . Patient is a 79-year-old female who returns the office for a heel wound to the left lower extremity she underwent AIF with stenting and has good blood flow with flow all the way down to the foot. Patient has moderate swelling today she states that she does feel better she denies any new wounds. Patient denies any other complaints. Patient denies any fever, chills, nausea or vomiting. Nir Boo DPM [address] [facility], [facility] [address], [place], [address], [facility] 11/26/2024 15:36:25 OBGyn Episode No OBEpisode recorded.
--- OUTSIDE RECORDS SUMMARY | 2024-11-26 18:05 | XMS_ITS | Clinical Summary ---
Author Organization [facility] Address [address] [place] [address] Phone Care Team Providers Care Deli Clerk Name Role Phone Unavailable Primary Care Provider Unavailabl e Medications imipramine (TOFRANIL) 25 MG tablet 0 03/04/2014 Active pioglitazone (ACTOS) 15 MG tablet 03/04/2014 Active amLODIPine (NORVASC) 5 MG tablet 03/04/2014 Active aspirin (ASPIR-LOW) 81 MG EC tablet 03/04/2014 Active lovastatin (MEVACOR) 20 MG tablet 03/04/2014 Active ergocalciferol (VITAMIN D-2) 40755 units capsule 1 weekly 03/04/2014 Active lisinopril (PRINIVIL,ZESTR IL) 20 MG tablet 1 daily 12 08/23/2017 Active diclofenac (VOLTAREN) 1 % topical gel 03/04/2014 Active omega-3 (FISH OIL) 1000 MG capsule 03/04/2014 Active clotrimazole (LOTRIMIN) 1 % cream 03/04/2014 Active ferrous sulfate 325 (65 Fe) MG tablet 03/04/2014 Active carvedilol (COREG) 3.125 MG tablet 1 ibid 12 07/17/2017 Active Methylcobalamin (Q27-COORXW) 1 MG chewable tablet half tab daily [...] Comments Blood Pressure 119/62 09/11/2018 12:01 AM INSULATION PACKER Pulse 72 02/01/2015 12:01 AM CDT Temperature 36.8 C (98.3 F) 02/01/2015 12:01 AM CDT Respiratory Rate - - Oxygen Saturation - - Inhaled Oxygen Concentration - - Weight 63.5 kg (140 lb) 09/11/2018 12:01 AM INSULATION PACKER Height 149.9 cm (4' 11 ) 09/11/2018 12:01 AM INSULATION PACKER Body Mass Index 28.28 09/11/2018 12:01 AM INSULATION PACKER Plan of Treatment Health Maintenance Due Date Last Done Comments Pneumococcal PPSV23/PCV13 65 + Years / Low and Medium Risk (1 of 4 - PCV) 1996 Influenza Vaccine (Season Ended) 2025
--- OUTSIDE RECORDS SUMMARY | 2024-11-26 18:05 | XMS_ITS | Data Portability ---
Author Organization [place] [employer] [facility], Main Office Address [address] [place] [address] Care Team Providers Care Information Systems Analyst Name Role Phone NOY PENN Primary Care Provider NOY PENN Referring Provider Assessment Encounter Date Assessment Date Assessment LastModified by Organization Details LastModified Time 10/29/2024 10/29/2024 This note is dictated and transcribed by [employer]. Hat Former variances may occur. Despite proofreading, typographical errors may occur. Occasional wrong-word or 'gaafc-x-qvvu' substitutions may have occurred due to the inherent limitations of voice recording. Read the chart carefully and recognize, using context, where substitutions have occurred. Not available 10/29/2024 09:59:41 11/05/2024 11/05/2024 This note is dictated and transcribed by [employer]. Hat Former variances may occur. Despite proofreading, typographical errors may occur. Occasional wrong-word or 'ufgmy-n-jmsj' substitutions may have occurred due to the inherent limitations of voice recording. Read the chart carefully and recognize, using context, where substitutions have occurred. Not available 11/05/2024 10:07:50 11/12/2024 11/12/2024 This note is dictated and transcribed by [employer]. Hat Former variances may occur. Despite proofreading, typographical errors may occur. Occasional wrong-word or 'dtcko-f-bgpt' substitutions may have occurred due to the inherent limitations of voice recording. Read the chart carefully and recognize, using context, where substitutions have occurred. Not available 11/12/2024 10:29:43 11/26/2024 11/26/2024 This note is dictated and transcribed by [employer]. Hat Former variances may occur. Despite proofreading, typographical errors may occur. Occasional wrong-word or 'zmogo-p-sdyc' substitutions may have occurred due to the inherent limitations of voice recording. Read the chart carefully and recognize, using context, where substitutions have occurred. Not available 11/26/2024 15:35:02 Plan of Treatment Reminders Order Date Submit Date Provider Last Modified By Organization Details Last Modified Time Details Appointments Any 15 025 10:45AM Nir Boo DPM Not available Not available Not available Any 15 025 10:30AM Nir oBo DPM Not available Not available Not available [...] Recorded Time History of diabetic foot ulcer 6058980589013 9100 Active 2018 Not Available [facility] 3 01:04:35 Amputated big toe 885919376 Active 2018 Not Available [facility] 3 01:04:36 Type 2 diabetes mellitus with peripheral angiopathy 168342017 Active 2017 Not Available [facility] 3 01:04:36 Peripheral vascular disease 338852451 Active 2019 Not Available [facility] 3 01:04:36 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 628923675 Active 2019 Not Available [facility] 3 01:04:36 Type 2 diabetes mellitus 60931824 Active 2019 Not Available [facility] 3 01:04:36 Long-term current use of anticoagul ant 449184326 Active 2018 Not Available [facility] 3 01:04:36 Diabetes mellitus 59791377 Active Not Available [facility] 3 01:04:36 Dystrophia unguium 51964711 Active 2023 Nir Boo DPM [address] [facility], [facility] [address], [place], [address] , [place] [facility] 4 10:49:49 Peripheral arterial occlusive disease 274035153 Active 2023 Nir Boo DPM [address] [facility], [place], [address] , [facility] [facility] 4 10:45:01 Pressure injury of heel 670286153 Active 2024 Nir Boo DPM [address] [facility], [place], [address] , [facility] [employer] [facility] [employer] [facility] 5 17:15:17 Foot ulcer due to type 2 diabetes mellitus 5084200623267 Active 2024 Nir Boo DPM [address] [facility], [place], [address] , [facility] [employer] 5 10:24:10 Problem Notes None recorded. Procedures Surgical History Date Name Laterality Status Provider Name and Address Organization Details Recorded Time 5 Wound Care-Podiatry completed Satya Hodges RN [facility] 11/26/2024 13:08:11 5 Wound Care-Podiatry completed Theresa Hudson RN [facility] 11/17/2024 10:40:25 5 Wound Care-Podiatry completed Nir Boo DPM [address] [facility], [facility] [address], [place], [address], [facility] [employer] 11/12/2024 10:27:54 5 Wound Care-Podiatry completed Kierra Shaw [facility] 11/05/2024 09:58:53 5 Wound Care-Podiatry completed Theresa Hudson RN [facility] 10/29/2024 10:15:59 5 Wound Care-Podiatry completed Theresa Hudson RN [facility] 10/22/2024 14:11:35 5 Wound Care-Podiatry completed Theresa Hudson RN [facility] 10/22/2024 10:21:47 5 Nail Debridement completed Nir Boo DPM [address], [place], [address], [facility] [employer] [facility] [employer] [facility] 08/21/2024 17:55:22 4 Nail Debridement completed Nir Boo DPM [address], [address], [place], [address], [employer] [facility] [employer] 03/20/2024 10:44:17 4 Plantar Fascia Injection Left Foot completed Nir Boo DPM [address], [address], [place], [address], [employer] [facility] [employer] 01/31/2024 10:17:02 4 Nail Debridement completed Nir Boo DPM [address], [address], [place], [address], [employer] [facility] [employer] 12/20/2023 10:08:42 4 Nail Debridement completed Nir Boo DPM [address], [address], [place], [address], [employer] 09/20/2023 13:30:21 Imaging Results None recorded. Procedure [...] Needle 31 gauge x 09/21 USE DIRECTED 09/19 completed Not Available Not [...] Available pen needle, diabetic 32 gauge x 5/32 USE DIRECTED active Not Available Not Available [...] Details Last Updated DateTime 5 142.24 cm 60 /min 16 /min 97.8 [degF] 96 % 96 % 116 mm[Hg] 45 mm[Hg] [employer] [employer] 5 09:49:56 Date Recorded Body height Heart rate Respiratory rate Body temperature Oxygen saturation Oxygen saturation in Arterial blood by Pulse oximetry Systolic blood pressure Diastolic blood pressure Provider Name and Address Organization Details Last Updated DateTime 5 142.24 cm 73 /min 16 /min 97.8 [degF] 96 % 96 % 139 mm[Hg] 29 mm[Hg] [employer] [employer] 5 09:51:50 Date Recorded Body height Heart rate Respiratory rate Body temperature Oxygen saturation Oxygen saturation in Arterial blood by Pulse oximetry Systolic blood pressure Diastolic blood pressure Provider Name and Address Organization Details Last Updated DateTime 5 142.24 cm 61 /min 16 /min 98 [degF] 100 % 100 % 138 mm[Hg] 48 mm[Hg] [employer] 5 09:47:43 Date Recorded Body height Heart rate Respiratory rate Body temperature Oxygen saturation Oxygen saturation in Arterial blood by Pulse oximetry Provider Name and Address Organization Details Last Updated DateTime 5 142.24 cm 71 /min 17 /min 98.6 [degF] 96 % 96 % [employer] 5 12:19:19 Social History None recorded. Functional Status None recorded. Mental Status None recorded. Family History Relationship Description Onset Age of this Age Resolved Age Notes LastModified by Organization Details LastModified Time Mother Diabetes mellitus [email or web address] Not available 01/07 09:54:09 Medical History Condition Response HYPERTENSION Y ARTHRITIS Y DIABETES, TYPE Y Gynecological HistoryNo gynecological history recorded. Obstetrics History GPAL:G 0 P 0 0 0 0 Past Encounters Encounter ID Performer Location Encounter Start Date Encounter Closed Date Diagnosis/Indication Diagnosis SNOMED-CT Code Diagnosis ICD10 Code Diagnosis Note [id number] [facility] [address] [place] [address] 09/10/2020 00:00:00 09/14/2020 08:36:52 [id number] [facility] [address] [place] [address] 09/28/2020 00:00:00 09/28/2020 14:50:38 [id number] [facility] [address] [place] [address] 10/19/2020 00:00:00 10/19/2020 13:49:49 [id number] [facility] [address] [place] [address] 11/09/2020 00:00:00 11/09/2020 12:59:33 [id number] [facility] [address] [place] [address] 11/30/2020 00:00:00 11/30/2020 11:40:45 [id number] [facility] [address] [place] [address] 12/14/2020 00:00:00 12/14/2020 12:48:09 [id number] [facility] [address] [place] [address] 12/28/2020 00:00:00 12/29/2020 09:43:12 [id number] [facility] [address] [place] [address] 01/18/2021 00:00:00 01/18/2021 15:18:36 [id number] [facility] [address] [place] [address] 02/08/2021 00:00:00 02/08/2021 13:45:16 [id number] [facility] [address] [place] [address] 03/15/2021 00:00:00 03/20/2021 22:38:46 [id number] [facility] [address] [place] [address] 04/05/2021 00:00:00 04/05/2021 16:04:39 [id number] [facility] [address] [place] [address] 04/29/2021 00:00:00 05/01/2021 21:11:10 [id number] [facility] [address] [place] [address] 07/26/2021 00:00:00 07/31/2021 13:42:25 [id number] [facility] [place] [address] [place] [address] 09/15/2021 00:00:00 09/18/2021 14:48:13 [id number] [facility] [place] [address] [place] [address] 01/05/2022 00:00:00 01/05/2022 11:13:02 [id number] [facility] [place] [address] [place] [address] 03/09/2022 00:00:00 03/14/2022 10:05:11 [id number] [facility] [place] [address] [place] [address] 05/18/2022 00:00:00 05/19/2022 10:48:31 [id number] Nir Boo DPM [facility] [place] [address] [place] [address] 09/20/2023 10:24:34 09/20/2023 13:43:29 Diabetes mellitus 75750608 E11.40 E11.51 Z86.31 continue diabetic control to PCP Type 2 pauline betes mellitus with peripheral angiopathy 623330724 E11.51 Rx diabetic shoes and insolesPat ient educated on neuropathy , diabetes, diabetic diet, and daily foot exams. Patient is to check feet daily for new wounds, blisters, redness to prevent infection and ulceration s to the feet. Patient will return to clinic in 3 months for diabetic foot workup. Dystrophia unguium 49348 009 L60.3 Nails were debrided without incident [id number] Nir Boo DPM [facility] [place] [address] [place] [address] 12/20/2023 09:38:06 12/20/2023 11:25:05 Diabetes mellitus 35580836 E11.40 E11.51 Z86.31 continue diabetic control to PCPcontinu e diabetic shoes and insolesChe ck feet daily for wounds infection at present seek medical attention immediatel yFollow-up in 3 months for foot care Ingrowing nail of toe of right foot 4594221512 1943475 L60.0 great toe, medial borderNail cut out slant back todaywound care daily with antibiotic ointment and Band-AidPa tient is to soak in warm Epsom salt soaks math for approximat guerrero 20 min daily for 5-7 days until infection has resolved. Patient is to dress the wound daily with topical antibiotic ointment and Band-Aid. Patient to monitor for signs of infection, if worsens seek medical attention at the nearest ER.Monitor for signs of infection forced and seek medical attention immediatel yFollow-up as needed, if continues be problemati c will need arterial workup and possible partial matrixecto my History of diabetic foot ulcer 7074047236 3525515 Z86.31 as above- monitoring daily continuing diabetic shoe gear [id number] Nir Boo DPM [facility] [place] [address] [place] [address] 01/31/2024 09:45:22 01/31/2024 13:17:37 Plantar fasciitis of left foot 3247173187 1933863 M72.2 injection left heelrice therapycon tinue supportive shoe gearfollow -up 3-4 weeks [id number] Nir Boo DPM [facility] [place] [address] [place] [address] 02/14/2024 10:17:41 02/14/2024 16:26:44 Right Achilles tendinitis 5861359217 48201 M76.61 stretching icing instructio ns reviewedCo ntinue supportive shoe gearContin ue physical therapyFol low-up 1 month Bilateral plantar fasciitis 3415521038 7984606 M72.2 as above [id number] Nir Boo DPM [facility] [place] [address] [place] [address] 03/20/2024 10:19:30 03/21/2024 11:21:55 Ingrowing nail of toe of right foot 9041338378 1588980 L60.0 great toe, medial borderNail cut out slant back todaywound care daily with antibiotic ointment and Band-AidPa tient is to soak in warm Epsom salt soaks math for approximat guerrero 20 min daily for 5-7 days until infection has resolved. Patient is to dress the wound daily with topical antibiotic ointment and Band-Aid. Patient to monitor for signs of infection, if worsens seek medical attention at the nearest ER.Monitor for signs of infection forced and seek medical attention immediatel yFollow-up as needed, if continues be problemati c will need arterial workup and possible partial matrixecto my Peripheral arterial occlusive disease 708783726 I73.9 rule out peripheral arterial disease- healing potential for possible surgery secondary to history of amputation s Bilateral plantar fasciitis 7593423490 9478848 M72.2 resolved continue supportive shoe gearfollow -up as needed [id number] Nir Boo DPM [facility] [place] [address] [place] [address] 04/03/2024 10:12:13 04/03/2024 14:14:54 Peripheral arterial occlusive disease 203305416 I73.9 arterial studies reviewed with the patientTreva lucero daily exercisesw ill continue to monitor Diabetes mellitus 244314 09 E11.40 E11.51 Z86.31 continue diabetic control to PCPcontinu e diabetic shoes and insolesChe ck feet daily for wounds infection at present seek medical attention immediatel yFollow-up in 3 months for foot care [id number] Nir Boo DPM [facility] [place] [address] [place] [address] 05/01/2024 10:51:52 05/01/2024 11:45:25 Plantar fasciitis of right foot 3735207792 3368202 M72.2 Resolved History of diabetic foot ulcer 7151151079 9799040 Z86.31 as above- monitoring daily continuing diabetic shoe gearfollow -up in 3 months for diabetic foot care [id number] Nir Boo DPM [facility] [place] [address] [place] [address] 08/21/2024 15:56:25 08/26/2024 14:01:26 Peripheral vascular disease 710597924 I73.9 refer vascular for evaluation possible angio stenting Pressure i njury of heel 464951998 L89.609 offloading at all times both heels to prevent worseningh igh pressure wound to the right heelmonito r for infection if present seek medical attention immediatel yFollow-up in 1 month Type 2 pauline betes mellitus with peripheral angiopathy 729828432 E11.51 Rx diabetic shoes and insolesPat ient educated on neuropathy , diabetes, diabetic diet, and daily foot exams. Patient is to check feet daily for new wounds, blisters, redness to prevent infection and ulceration s to the feet. Patient will return to clinic in 3 months for diabetic foot workup. [id number] [facility]ir [facility]oo [facility]PM [facility] [place] [address] [place] [address] 10/16/2024 11:27:10 10/22/2024 15:58:50 Foot ulcer due to type 2 diabetes mellitus 1691920213 100 E11.621 right heeldaily dressings with offloading at all timesmonit or for signs of infection at present seek medical attention immediatel yObtain non-invasi ve vascular testingedu cated on [facility] ollow-up 1 week Peripheral arterial occlusive disease 856623407 I73.9 obtain Doppler and MELISSA [id number] Nir Boo DPM [facility] [address] [place] [address] 10/22/2024 09:36:02 10/22/2024 15:42:20 Foot ulcer due to type 2 diabetes mellitus 8051312816 100 E11.621 right heeldaily dressings with offloading at all timesmonit or for signs of infection at present seek medical attention immediatel yObtain non-invasi ve vascular testingedu cated on [facility] Poly Adaptive orderedfol low-up 1 week Peripheral arterial occlusive disease 067031230 I73.9 obtain Doppler and MELISSA- to ensure adequate wound healing [id number] [facility] [address] [place] [address] 10/29/2024 09:41:18 10/29/2024 11:20:00 Foot ulcer due to type 2 diabetes mellitus 8678492884 100 E11.621 right heeldaily dressings with offloading at all timesmonit or for signs of infection at present seek medical attention immediatel yObtain non-invasi ve vascular testingedu cated on [facility] [employer] [facility]-up 1 week Peripheral arterial occlusive disease 218574161 I73.9 obtain Doppler and MELISSA- to ensure adequate wound healingsch [facility] do[facility] tomorrow [id number] [facility] [address] [place] [address] 11/05/2024 09:38:31 11/05/2024 13:43:50 Foot ulcer due to type 2 diabetes mellitus 4134428427 100 E11.621 right heeldaily dressings with offloading at all timesmonit or for signs of infection at present seek medical attention immediatel yObtain non-invasi ve vascular testingedu cated on [facility] health supplies orderedfol low-up 1 week Peripheral arterial occlusive disease 649555652 I73.9 obtain Doppler and MELISSA- to ensure adequate wound healing [id number] [facility] [address] [place] [address] 11/12/2024 09:40:07 11/13/2024 10:37:23 Foot ulcer due to type 2 diabetes mellitus 9227565348 100 E11.621 right heeldaily dressings with offloading at all timesmonit or for signs of infection at present seek medical attention immediatel yObtain non-invasi ve vascular testingedu cated on [facility] health supplies orderedfol low-up 1 week Peripheral arterial occlusive disease 569244982 I73.9 obtain Doppler and MELISSA- to ensure adequate wound healing [id number] Nir Boo DPM [facility] [address] [place] [address] 11/17/2024 09:38:37 11/17/2024 16:59:15 [id number] Nir Boo DPM [facility] [address] [place] [address] 11/26/2024 11:58:09 11/26/2024 16:02:40 Foot ulcer due to type 2 diabetes mellitus 1631853240 100 E11.621 right heeldaily dressings with offloading at all timesmonit or for signs of infection at present seek medical attention immediatel yObtain non-invasi ve vascular testingedu cated on [facility] health supplies orderedfol low-up 1 week Peripheral arterial occlusive disease 291679916 I73.9 successful stenting with angio right leg last week Health Concerns Section Related Observation LastModified by Organization Detai ls LastModified Time None Recorded Concern Status LastModified by Organization Details LastModified Time None Recorded Advance Directives Directive None Recorded Payers Encounter Date Sequence Insurance Name Policy Number Policy Garay Covered Member ID Garay Member ID Guarantor Name 10/29/2024 2 [place] [facility] Shasta Wheatley [id number] Shasta Wheatley 10/29/2024 1 [facility] (MEDICARE REPLACEMENT/A DVANTAGE - PPO) [id number] Shasta Wheatley [id number] Shasta Wheatley 11/05/2024 2 [place] [facility] [place] [facility] [place] Shasta Javad-Hasan [id number] Shasta Ali-Hasan 11/05/2024 1 [facility] (MEDICARE REPLACEMENT/A DVANTAGE - PPO) [id number] Shasta Ali-Hasan [id number] Shasta Ali-Hasan 11/12/2024 2 [place] [facility] [place] OF [place] Shasta Ali-Hasan [id number] Shasta Ali-Hasan 11/12/2024 1 [facility] (MEDICARE REPLACEMENT/A DVANTAGE - PPO) [id number] Shasta Ali-Hasan [id number] Shasta Ali-Hasan 11/17/2024 2 [place] [facility] [place] [facility] Shasta Ali-Hasan [id number] Shasta Ali-Hasan 11/17/2024 1 [facility] (MEDICARE REPLACEMENT/A DVANTAGE - PPO) [id number] Shasta Ali-Hasan [id number] Shasta Ali-Hasan 11/26/2024 2 [place]: [facility] [place] OF PUBLIC AID Shasta Ali-Hasan [id number] Shasta Ali-Hasan 11/26/2024 1 [facility] (MEDICARE REPLACEMENT/A DVANTAGE - PPO) [id number] Shasta Ali-Hasan [id number] Shasta Ali-Hasan Notes Date Note Type Note Provider Name and Address Organization Details Recorded Time 10/29/2024 text/html . Patient is 71-year-old female who returns the office for follow-up on pressure wound to the right posterior heel she is overall stable she has no new wounds or signs of infection she states that she did do a lot of walking she has upcoming arterial studies tomorrow. Patient has not yet obtained a appointment with her vascular doctor Anthony Mitchell We have spoken to vascular and they have tried multiple times to reach out to make an appointment but have been unsuccessful. Patient denies any other complaints. Nir Boo DPM [address] [place] [address], [address], [facility] [employer] 10/29/2024 10:19:56 11/05/2024 text/html . Patient is a 79-year-old female she returns for follow-up on diabetic foot ulcer to the right heel she overall is stable she is a healthy wound bed. Patient states that she is not compliant with the offloading when she is sleeping. Her daughter presents with the patient today I did have a discussion with the daughter as well about the importance of offloading is this is a kidd element to allow the wound to heal prevent worsening. Patient was seen by Anthony and she had follow-up arterial ultrasound which shows adequate blood flow for healing. We will continue to monitor the patient I did ask the patient to bring in her offloading equipment so I can ensure she has it and applying it adequately. Nir Boo DPM [address], [place], [address], [employer] 11/05/2024 10:23:50 11/12/2024 text/html . 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 Patient did not again bring her protective device for my review. Patient presents in a wheelchair. Patient denies any pain or signs of infection. Patient denies any other complaints. Nir Boo DPM [address], [place], [address], [employer] 11/12/2024 10:30:55 11/26/2024 text/html . Patient is a 79-year-old [...] chills, nausea or vomiting. Nir Boo DPM [address], [place], [address], [employer] 11/26/2024 15:36:25 OBGyn Episode No OBEpisode recorded.
[2024-11-26 18:51] LABS: Basophils Percent Auto 0.5 % (0.2-1.2); Eosinophils Absolute Auto 0.2 K/mm3 (0-0.3); Eosinophils Percent Auto 2.7 % (0-4.4); Hemoglobin 8.2 g/dL (12.0-15.0); Immature Granulocyte Absolute 0.05 K/mm3 (0.00-0.031); Immature Granulocyte Percent A 0.8 % (0-0.5); Lymphocytes Absolute Auto 1.08 K/mm3 (0.9-3.2); Lymphocytes Percent Auto 17.2 % (18.3-44.2); Mean Corpuscular HGB Conc 29.3 g/dl (32-36); Mean Corpuscular Volume 102.6 fl (80-100); Mean Platelet Volume 11.6 fl (7.4-10.4); Monocytes Absolute Auto 0.7 K/mm3 (0.1-0.6); Monocytes Percent Auto 11.3 % (2.6-8.5); Neutrophils Absolute Auto 4.3 K/mm3 (1.3-6.7); Neutrophils Percent Auto 67.5 % (45.5-73.1); Platelet Count Result 138 k/mm3 (150-375); Red Blood Count 2.73 M/mm3 (4.2-5.4); Red Cell Distribution Width 17.8 % (11.5-14.5); White Blood Count 6.3 K/mm3 (4.5-10.0)
[2024-11-26 18:58] LABS: Anion Gap 7 mmol/L (4-12); Blood Urea Nitrogen 31 mg/dL (7-17); Calcium 8.7 mg/dL (8.4-10.2); Carbon Dioxide 34 mmol/L (22-30); Chloride 95 mmol/L (98-107); Estimated Glomerular Filt Rate 16; Glucose 87 mg/dL (65-110); Sodium 136 mmol/L (137-145)
[2024-11-26 18:59] LABS: INR 1.2; Prothrombin Time 15.5 Seconds (11.1-14.7)
[2024-11-26 19:00] LABS: Partial Thromboplastin Time 30.5 Seconds (22.3-36.8)
[2024-11-26 19:14] LABS: Platelet Estimate Slightly Decreased (Adequate); Schistocytes None Seen
[2024-11-26 19:15] LABS: Anisocytosis 2+; Band Neutrophils Percent 0 % (0-6); Hypochromasia 1+
[2024-11-26 19:55] VITALS: BP 124/53; PULSE 56; RESP 16; TEMP 36.3; O2SAT 93
== END 2024-11-26 19:58 | disposition home or self-care (01) ==
PROVIDERS: Emergency Provider Physician Assistant; PCP Family Medicine
DX: T82.838A Hemorrhage due to vascular prosthetic devices, implants and grafts, initial encounter (principal); E11.22 Type 2 diabetes mellitus with diabetic chronic kidney disease; I12.0 Hypertensive chronic kidney disease with stage 5 chronic kidney disease or end stage renal disease; N18.6 End stage renal disease; Z99.2 Dependence on renal dialysis; I48.0 Paroxysmal atrial fibrillation; I27.20 Pulmonary hypertension, unspecified; E11.51 Type 2 diabetes mellitus with diabetic peripheral angiopathy without gangrene; I73.9 Peripheral vascular disease, unspecified; E78.5 Hyperlipidemia, unspecified; D53.1 Other megaloblastic anemias, not elsewhere classified; K21.9 Gastro-esophageal reflux disease without esophagitis; K44.9 Diaphragmatic hernia without obstruction or gangrene; K58.9 Irritable bowel syndrome, unspecified; M17.0 Bilateral primary osteoarthritis of knee; M81.0 Age-related osteoporosis without current pathological fracture; Z95.818 Presence of other cardiac implants and grafts; Z96.661 Presence of right artificial ankle joint; Z96.651 Presence of right artificial knee joint; Z86.0100 Personal history of colon polyps, unspecified; Z86.19 Personal history of other infectious and parasitic diseases; Z89.412 Acquired absence of left great toe; Z89.431 Acquired absence of right foot; Z98.42 Cataract extraction status, left eye; Z98.41 Cataract extraction status, right eye; Z79.899 Other long term (current) drug therapy; Z79.85 Long-term (current) use of injectable non-insulin antidiabetic drugs; Z79.4 Long term (current) use of insulin; Z79.84 Long term (current) use of oral hypoglycemic drugs; Y84.1 Kidney dialysis as the cause of abnormal reaction of the patient, or of later complication, without mention of misadventure at the time of the procedure
CPT/HCPCS: 36415; 80048; 85025; 85610; 85730; 86850; 86900; 86901; 99283

== ENCOUNTER 2024-12-04 00:56 | Day surgery (SDC) | payer MEDICARE, MEDICAID, SELFPAY ==
[2024-11-28 10:06] VITALS: BMI 29.0
--- OUTSIDE RECORDS SUMMARY | 2024-12-04 00:59 | XMS_ITS | Encounter Summary ---
Author Organization [facility] Address [address] [place] [address] Phone Care Team Providers Care Financial Services Technician Name Role Phone David Coppola MD Primary Care Provider [phone] David Coppola MD Primary Care Provider [phone] David Coppola MD Primary Care Provider + [phone] David Coppola MD Primary Care Provider [phone] Unknown, Notinfile Primary Care Provider Unavail able David Coppola MD Primary Care Provider [phone] Jacob Suarez MD Unavailable [phone] Marnie Lara RN Unavailable Ros Seay MD Unavailable [phone] Johana Edmond RN Unavailable [phone] Abdifatah Villa MD Unavailable Issa Clements MD Unavailable [phone] Encounter Details Date Type Department Care Team (Latest Contact Info) Description 12/16/1980 Orders Only [facility] Scanning, Provider Social History Tobacco Use Types Packs/Day Years Used Date Smoking Tobacco: Never Assessed Comments Unknown Sex and Gender Information Value Date Recorded Sex Assigned at Not on file Legal Sex Female 12:39 PM 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 Gender Identity Not on file Sexual Orientation [...] Influenza, adult 09/04/2019 09/04/2019 09/11/2019 3:05 AM 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 Abscess/Wound/Cellulitis 10/16/2019 10/16/2019 3:05 AM CDT documented as of this encounter Care Teams Financial Services Technician Relationship Specialty Start Date End Date David [...] Nephrology 12/20/18 Marnie Lara, RN Registered Nurse [employer] 12/20/1809/03 Ros Seay MD Garden Machinery Mechanic Cardiology 03/05/19 Johana Edmond, RN [address] [facility] [address] [place] [address] [employer] 08/21/19 Abdifatah Villa MD [facility] [address] [place] [address] Consulting Physician Cardiology 09/01/20 Issa Clements MD [address] [facility] [address] [facility] [address] [place] [address] Referring Physician General Surgery 09/01/20 documented as of this encounter
--- OUTSIDE RECORDS SUMMARY | 2024-12-04 01:00 | XMS_ITS ---
[facility] Care Plan Created on: December 03, 2024 Shasta Obando : 1945 Sex: Female Author Organization [employer] Address [address] [place] [address] [address] [place] [address] Phone Health Concerns Health Status [facility] Health Concerns At risk for readmission, Hea lth condition management
--- OUTSIDE RECORDS SUMMARY | 2024-12-04 01:00 | XMS_ITS | Clinical Summary ---
Author Organization [facility] [address] Address [address] [place] [address] Care Team Providers Care Oceanology Teacher Name Role Phone David Coppola MD Primary Care Provider [phone] Jacob Suarez MD Unavailable [phone] Ros Seay MD Unavailable [phone] Abdifatah Villa MD Unavailable Issa Clements MD Unavailable [phone] Allergies Active Allergy Reactions Criticality Noted [...] GIB. Patients daughter reports recent admission to [facility] due to concern for GIB. Patient followed up with her outpatient GI. Planning for EGD at the end of November - continue PPI. Assessment & Plan (11/21/2024 3:03 PM CDT): History of peptic ulcer with GIB. Patients daughter reports recent admission to [facility] due to concern for GIB. Patient followed up with her outpatient GI. Planning for EGD at the end of November - closely monitor for bleeding due to starting asa and Plavix as above - continue PPI Assessment & Plan (08/28/2024 1:08 PM SETTLEMENT CLERK): History of peptic ulcer with GIB Denies sx continue PPI Heart valve disease 04/06/2023 History of GI bleed 02/04/2023 Bradycardia 09/29/2022 Bleeding 09/29/2022 Idiopathic hypotension 09/13/2021 Complication of arteriovenous dialysis fistula 0 09/07/2020 Type 2 diabetes mellitus wit h diabetic peripheral angiopathy and gangrene, without long-term current use of insulin 08/21/2020 Assessment & Plan (08/28/2024 1:05 PM SETTLEMENT CLERK): Home regimen Januvia, tresiba 10 and Victoza. Reviewed PCP records noted hypoglycemia last hospital admit with basal insulins continued Will continue januvia and hold tresiba and victoza SSI Family history of ischemic h eart disease and other diseases of the circulatory system 11/27/2019 Critical limb ischemia of right lower extremity 10/14/2019 Overview (10/14/2019): Added automatically from request for surgery [id number] Assessment & Plan (08/28/2024 12:59 PM SETTLEMENT CLERK): S/p uncomplicated balloon angioplasty of the AT, [...] (10/14/2019): Added automatically from request for surgery [id number] Presence of Watchman left atrial appendage closu re device 08/29/2018 Atrial fibrillation, permanent 06/13/2018 Overview (06/13/2018): Added automatically from request for surgery [id number] Assessment & Plan (11/22/2024 1:43 PM CDT): Rate controlled and s/p Watchman due to prior GIB. - continue home coreg as below. Assessment & Plan (11/21/2024 3:39 PM CDT): Rate controlled and s/p Watchman due to prior GIB. - continue home coreg as below Assessment & Plan (08/28/2024 1:03 PM SETTLEMENT CLERK): Follows with [facility]. Rate controlled and s/p Watchman due to prior severe GIB Recently stopped coreg due to bradycardia ASA and plavix to start per IR recs post revascularization Assessment & Plan (07/24/2018 9:29 AM SETTLEMENT CLERK): Continue coreg. S/p Watchmann DAVIDA occluder implant for future deescalate anticoagulation. Continue apixiban for now as per EP. Post procedure CXR. 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 PAD (peripheral artery disease) 03/15/2018 Overview (03/15/2018): Added automatically from request for surgery [id number] Assessment & Plan (11/22/2024 1:43 PM CDT): [...] (03/15/2018): Added automatically from request for surgery [id number] Ischemia of foot 03/15/2018 Overview (03/15/2018): Added automatically from request for surgery [id number] Noncompliance 02/24/2018 Essential hypertension 11/10/2017 Assessment & Plan (11/22/2024 1:43 PM CDT): On lisinopril and coreg at home, holding today for lower BP. Resume as able. Assessment & Plan (11/21/2024 3:03 PM CDT): Continue home lisinopril and coreg Assessment & Plan (07/24/2018 9:27 AM SETTLEMENT CLERK): Continue home meds and dialysis. Hyperlipidemia associated [...] today Assessment & Plan (08/29/2024 4:04 PM SETTLEMENT CLERK): Routine M/W/F r brachial fistula (has required multiple dilations last at [facility] 07/2024 Feeling well post procedure denies dyspnea. Renal consulted for HD prior to discharge Assessment & Plan (07/24/2018 9:26 AM SETTLEMENT CLERK): HD as per renal consult. Resume outpt [...] Resolved Date Coronary artery disease invo lving quechan coronary artery of quechan heart without angina pectoris 03/07/2021 03/07/2021 Preoperative cardiovascular examination 03/07/2021 09/29/2022 Hypoxia 11/27/2019 04/03/2023 Toe ulcer, left, with unspecified severity 09/16/2018 03/07/2021 Overview (09/16/2018): Added automatically from request for surgery [id number] Cough 11/10/2017 03/07/2021 Lumbago 06/04/2017 03/07/2021 Pain of lower extremity 06/04/201703/10 Chronic anticoagulation 08/22/2016 06/0 10/2018 Overview (10/12/2016): Chronic anticoagulation Stage 4 chronic kidney disease 04/21/2014 04/03/2023 Pain in joint 03/04/2014 04/03/2023 Paroxysmal atrial fibrillation 05/06/2024 ESRD (end stage renal disease) (CMS/HCC) 03/07/2021 Pre-transplant evaluation fo r kidney transplant 04/03/2023 Encounters Date Type Department Care Team Description 11/28/2024 Telephone [facility] Radiology [address] [place] [address] Alena Fontenot, ABENA 11/27/2024 Orders Only [facility] Radiology [address] [place] [address] Alena Fontenot, RN Atherosclerosis of quechan arteries of extremities with intermittent claudication, right leg (Primary Dx); Atherosclerosis of quechan arteries of extremities with rest pain, bilateral legs (HCC); Atherosclerosis of quechan arteries of extremities with rest pain, left leg (HCC) 11/27/2024 Telephone [facility] Radiology [address] [place] [address] Alena Fontenot RN 11/21/2024 12:00 PM CDT - 11/22/2024 4:55 PM CDT Hospital Encounter [address] [address] Shahnaz Heredia MD Guevara, Carlos Javier, MD Pain and swelling of right lower extremity (Primary Dx); Non-healing wound of right lower extremity; Pain and swelling of lower extremity, right; PAD (peripheral artery disease) Discharge Disposition: Discharge to home or self care 11/21/2024 6:00 AM CDT Office Visit [facility] 1 [facility] 1st [place] [address] PAD (peripheral artery disease) 11/21/2024 Telephone Radiology 1 [place] [address] Hollie Martinez PA 11/19/2024 Telephone [facility] Scheduling [address] [place] [address] Cynthia Blankenship MD Scheduling Appointments 11/19/2024 Telephone [facility] Radiology [address] [place] [address] Yaritza Golden RN 11/18/2024 Telephone [facility] Radiology [address] [place] [address] Tomy Reynolds RN 11/17/2024 Orders Only [facility] Radiology [address] [place] [address] Alena Fontenot, ABENA PAD (peripheral artery disease) (Primary Dx) 11/17/2024 Telephone [facility] Radiology [address] [place] [address] Alena Fontenot, ABENA 11/11/2024 Telephone [facility] Radiology [address] [place] [address] Alena Fontenot, RN 11/07/2024 Telephone [facility]iology [address] [place] [address] Alena Fontenot, RN 11/05/2024 Telephone [facility] Radiology [address] [place] [address] Alena Fontenot, RN 11/04/[address] [address] Alena Fontenot, RN 10/30/2024 1:14 PM CDT - 10/30/2024 11:59 PM CDT Hospital Encounter [facility] Vascular Lab [id number] [place] [address] Atherosclerosis of quechan arteries of extremities with intermittent claudication, bilateral legs Discharge Disposition: Discharge to home or self care 10/30/2024 1:00 PM CDT - 10/30/2024 11:59 PM CDT Hospital Encounter [facility] V[facility] Lab [id number] [place] [address] Atherosclerosis of quechan arteries of extremities with intermittent claudication, bilateral legs Discharge Disposition: Discharge to home or self care 10/24/2024 Orders Only [facility]iology [address] [place] [address] Alena Fontenot, RN Atherosclerosis of quechan arteries of extremities with intermittent claudication, bilateral legs (Primary Dx) from Last 3 Months Immunizations [...] by TW Conv) Hypertension ESRD on dialysis ([facility]) Type 2 diabetes mellitus ([facility]) History of transfusion Arthritis History of hemodialysis M, W, F DEMETRIUS AV fistula Gastric ulceration Hyperlipidemia Peripheral vascular disease ESRD on dialysis ([facility]) PAD (peripheral artery disease) Critical ischemia of foot ([facility]) Presence of Watchman left at rial appendage closure device Osteoporosis Spondylolisthesis of lumbar region Non-healing wound of lower extremity Neurogenic claudication due to lumbar spinal stenosis Atrial fibrillation (HCC) Paroxysmal A-fib ([facility]) ARCADIO (obstructive sleep apnea)- concern for 2024 [...] Hx Relation Name Status Comments Brother of [place] age 48 Father of [place] age 47 Mother Social History Tobacco Use [...] often do you attend chur ch or gnosticism services? 1 to 4 times per year [...] on file Legal Sex Female 12:39 PM SETTLEMENT CLERK Gender Identity Not on file Sexual Orientation [...] A M CDT Height 144.8 cm (4' 9) 11/21/2024 5:25 PM CDT Body Mass Index [...] 09/04/2019, 05/08/2019 Medical Devices Implanted Type Area Laborer Laboratory Device Identifier Shelf Expiration Date Model / Serial / Lot Device Clsr 27mm Davida Watchman - [id number] - [id number] Implanted:Qty : 1 on 07/23/2018 by Mike Mccloud MD PhD at [facility] Other - see comments Left: Heart [place] [employer] Breanna 12/13/2020 27MM-DAVIDA CLOSURE DEVICE / [id number] / [id number] Description:Left atrial appe ndage closure device Watchman Daig Breanna/[employer] [id number] Angio-Seal Vip Bondek-Plus 6fr .035in 70cm Hemostatic Latex Free - [id number] Implanted:Qty : 1 on 03/20/2018 by Abdifatah Villa MD at [facility] Daig Bre[place] 12/06/2018 [id number] / / [id number] Device Davida Watchman Procedure - [id number] Implanted:Qty : 1 on 07/23/2018 by Mike Mccloud MD PhD at [facility] [employer] Breanna WMPERPROCDEVICE 1 - 3 PC / / Description:1 Device Daig Breanna[employer] [id number] Angio-Seal Vip Bondek-Plus 6fr .035in 70cm Hemostatic Latex Free - [id number] Implanted:Qty : 1 on 09/26/2018 [facility] 06/07/2019 [id number] / / [id number] Daig Breanna [id number] Device Closure Angio-Seal Vip Bondek-Plus Polyglyd L70 Cm Od6 Fr Odsec.035 In Vascular - [id number] Implanted:Qty : 1 on 10/16/2019 by [facility] [id number] / / [employer] Device 6fr Closure Celt Acd Vascular Sterile Latex Free Disposable Flavio [facility]-06 - [id number] Implanted:Qty : 1 on 08/28/2024 at [facility] [employer] 01/01/2027 KCLT-06 / / [id number] [employer] Breanna Angio-Seal Vip 6fr Closere Device [id number] - [id number] Implanted:Qty : 1 on 11/21/2024 at [facility] 03/26/2025 [id number] / / [id number] Procedures Procedure Name Priority Date/Time Associated Diagnosis [...] Routine) 10/30/2024 3:13 PM CDT Atherosclerosis of quechan arteries of extremities with intermittent claudication, bilateral legs VL US ARTERIAL DUPLEX LOWER EXTREMITY BILATERAL Schedule Routine, Read Routine (OP Routine) 10/30/2024 2:19 PM CDT Atherosclerosis of quechan arteries of extremities with intermittent claudication, bilateral legs HEPATITIS C ANTIBODY Routine 08/19/2020 12:07 PM SETTLEMENT CLERK ESRD (end stage renal disease) (HCC) HEMOGLOBIN A1C Routine 09/04/2019 12:14 AM SETTLEMENT CLERK from Last 3 Months or Most Recently Relevant to Health Maintenance Results * (ABNORMAL) POCT glucose (11/22/2024 12:10 PM CDT) Glucose, POC 231(H) 70 - 199 mg/dL Blood 11/22/2024 12:1 0 PM CDT 11/22/2024 12:10 PM CDT us Shahnaz Heredia MD LAB POCT ORDERABLES - DEV ICE Final Result [facility] [place] [address] * (ABNORMAL) POCT glucose (11/22/2024 8:28 AM CDT) Glucose, POC 230(H) 70 - 199 mg/dL Blood 11/22/2024 8:28 AM CDT 11/22/2024 8:28 AM CDT Shahnaz Heredia MD LAB POCT ORDERABLES - DEV ICE Final Result Performing Organization Address [facility] Co de Phone Number GUILLERMINA [facility] [place] [address] * (ABNORMAL) eGFR (11/22/2024 7:56 AM CDT) [...] data was last reviewed 2021. Blood 11/22/2024 7:5 6 AM CDT 11/22/2024 8:37 AM CDT us Tomy GUADARRAMA LAB BLOOD ORDERABLES Final R esult [facility] [place] [address] * Hepatitis B Surface Antigen Blood (11/22/2024 7:56 AM CDT) [facility] HepBsAg Nonreactive Nonreactive Blood 11/22/2024 7:56 AM CDT 11/22/2024 8:36 AM CDT Nina Hopson MD LAB MICROB IOLOGY - GENERAL ORDERABLES Edited Result - Final Performing Organization Address City/[facility]/ZIP Co de Phone Number [facility] [place] [address] * (ABNORMAL) CBC without differential (11/22/2024 7:56 AM CDT) [facility] WBC 7.32 3.80 - 9.90 K/cumm Hgb 8.6(L) 11.9 - 15.5 g/dL [facility] Hct 28.8(L) 35.6 - 45.5 % [facility] Plt 111(L) 150 - 400 K/cumm [facility] MPV 12.6(H) 9.1 - 12.3 fL [facility] RBC 2.91(L) 3.90 - 5.20 M/cumm [facility] MCV 99.0(H) 81.3 - 96.4 fL [facility] MCH 29.6 27.1 - 33.3 pg [facility] MCHC 29.9(L) 32.3 - 35.7 g/dL [facility] RDW CV 17.2(H) 11.1 - 14.9 % [facility] RDW SD 60.7(H) 35.7 - 48.1 fL [facility] NRBC abs 0.00 0.00 - 0.01 K/cumm [facility] Blood 11/22/2024 7:56 AM CDT 11/22/2024 8:37 AM CDT Tomy GUADARRAMA LAB BLOOD ORDERABLES Final R esult [facility] [place] [address] * (ABNORMAL) Basic metabolic panel (11/22/2024 7:56 AM CDT) Pathologist [facility] Sodium 131(L) 135 - 145 mmol/L Potassium, pl 5.5(H) 3.3 - 4.9 mmol/L [facility] Chloride 92(L) 97 - 110 mmol/L [facility] CO2 29 22 - 32 mmol/L [facility] Anion gap 10 2 - 15 mmol/L [facility] BUN 58(H) 6 - 25 mg/dL [facility] Creatinine 6.13(H) 0.60 - 1.10 mg/dL [facility] Glucose 257(H) 70 - 199 mg/dL [facility] Comment: Interpretive Data Fasting glucose [...] 2022. Calcium 8.8 8.5 - 10.3 mg/dL [facility] Blood 11/22/2024 7:56 AM CDT 11/22/2024 8:37 AM CDT Tomy GUADARRAMA LAB BLOOD ORDERABLES Final R esult [facility] [place] [address] * (ABNORMAL) eGFR (11/21/2024 10:36 PM CDT) [facility] eGFR 7(L) >=60 mL/min/1. 73 m2 Comment: [...] Fermin NP LAB BLOOD ORDERABLES Final Result [facility] Department [place] [address] * (ABNORMAL) CBC without differential (11/21/2024 10:36 PM CDT) [facility] WBC 8.51 3.80 - 9.90 K/cumm Hgb 8.9(L) 11.9 - 15.5 g/dL [facility] Hct 29.8(L) 35.6 - 45.5 % [facility] Plt 112(L) 150 - 400 K/cumm [facility] MPV 12.7(H) 9.1 - 12.3 fL [facility] RBC 3.01(L) 3.90 - 5.20 M/cumm [facility] MCV 99.0(H) 81.3 - 96.4 fL [facility] MCH 29.6 27.1 - 33.3 pg [facility] MCHC 29.9(L) 32.3 - 35.7 g/dL [facility] RDW CV 17.2(H) 11.1 - 14.9 % [facility] RDW SD 60.3(H) 35.7 - 48.1 fL [facility] NRBC abs 0.02(H) 0.00 - 0.01 K/cumm [facility] Blood 11/21/2024 10:3 6 PM CDT 11/21/2024 10:49 PM CDT us Christina Fermin NP LAB BLOOD ORDERABLES Final Result Performing Organization Address City/[facility]/ZIP Co de Phone Number [facility] Department [place] [address] * (ABNORMAL) Phosphorus (11/21/2024 10:36 PM CDT) [facility] Phosphorus, pl 6.5(H) 2.3 - 4.5 mg/dL Blood 11/21/2024 10:3 6 PM CDT 11/21/2024 10:49 PM CDT us Robles Alicea MD LAB BLOOD ORDERABLES Gertrude l Result [facility] [place] [address] * (ABNORMAL) Basic metabolic panel (11/21/2024 10:36 PM CDT) Pathologist [facility] Sodium 135 135 - 145 mmol/L Potassium, pl 5.5(H) 3.3 - 4.9 mmol/L [facility] Chloride 93(L) 97 - 110 mmol/L [facility] CO2 29 22 - 32 mmol/L [facility] Anion gap 13 2 - 15 mmol/L [facility] BUN 57(H) 6 - 25 mg/dL [facility] Creatinine 5.81(H) 0.60 - 1.10 mg/dL [facility] Glucose 257(H) 70 - 199 mg/dL [facility] Comment: Interpretive Data Fasting glucose [...] 2022. Calcium 9.6 8.5 - 10.3 mg/dL [facility] Blood 11/21/2024 10:3 6 PM CDT 11/21/2024 10:49 PM CDT Christina Fermin NP LAB BLOOD ORDERABLES Final Result [facility] [place] [address] * POCT glucose (11/21/2024 8:23 PM CDT) Glucose, POC 119 70 - 199 mg/dL Blood 11/21/2024 8:23 PM CDT 11/21/2024 8:23 PM CDT us Shahnaz Heredia MD LAB POCT ORDERABLES - DEV ICE Final Result [facility] [place] [address] * POCT glucose (11/21/2024 5:24 PM CDT) Glucose, POC 188 70 - 199 mg/dL Blood 11/21/2024 5:24 PM CDT 11/21/2024 5:24 PM CDT us Shahnaz Heredia MD LAB POCT ORDERABLES - DEV ICE Final Result GUILLERMINA [facility] [place] [address] * IR Angiogram Lower Extremity Right (11/21/2024 [...] was obtained. Prior to beginning the procedure, [place] Protocol was performed to confirm the patient's [...] of the patent vessel was recorded. The 5-[place] catheter was placed in the superficial femoral artery and the right lower extremity angiogram was performed in stations to the foot A 45 cm 6-[place] sheath was advanced to the superficial femoral [...] was obtained. Prior to beginning the procedure, [place] Protocol was performed to confirm the patient's [...] of the patent vessel was recorded. The 5-[place] catheter was placed in the superficial femoral artery and the right lower extremity angiogram was performed in stations to the foot A 45 cm 6-[place] sheath was advanced to the superficial femoral [...] 318(H) 123 - 168 sec POC Performer [id number] [facility] POC Device Number [id number] [facility] Blood 11/21/2024 10:3 6 AM CDT 11/21/2024 10:36 AM CDT us Shahnaz Heredia MD LAB POCT ORDERABLES - DEV ICE Final Result [facility] Department [place] [address] * (ABNORMAL) POCT Activated clotting time, low range (11/21/2024 9:54 AM CDT) ACT 331(H) 123 - 168 sec POC Performer [id number] [facility] POC Device Number [id number] GUILLERMINA [facility] Blood 11/21/2024 9:54 AM CDT 11/21/2024 9:54 AM CDT Shahnaz Heredia MD LAB POCT ORDERABLES - DEV ICE Final Result Performing Organization Address City/[facility] Co de Phone Number [facility] [place] [address] * (ABNORMAL) POCT Activated clotting time, low range (11/21/2024 9:20 AM CDT) ACT 360(H) 123 - 168 sec POC Performer [id number] [facility] POC Device Number [id number] [facility] Blood 11/21/2024 9:20 AM CDT 11/21/2024 9:20 AM CDT Shahnaz Heredia MD LAB POCT ORDERABLES - DEV ICE Final Result Performing Organization Address [facility] de Phone Number [facility] [place] [address] * (ABNORMAL) eGFR (11/21/2024 6:31 AM CDT) [...] Inclusion of Race in Diagnosing Kidney Disease, DARRONSMaricel 2020). The CKD-EPI equation should not be used for patients with unstable renal function and has not been validated in children and those over 70. Current interpretive data was last reviewed 2021. Blood 11/21/2024 6:31 AM CDT 11/21/2024 6:47 AM CDT us Anthony Gorman MD LAB BLOOD ORDERABLES Fi nal Result [facility] [place] [address] * (ABNORMAL) Differential, auto (11/21/2024 6:31 AM CDT) Neutrophil abs 5.81 1.50 - 6.50 K/cumm Imm gran abs 0.03 0.00 - 0.10 K/cumm [facility] Lymphocyte abs 1.28 0.80 - 3.30 K/cumm [facility] Monocyte abs 0.89(H) 0.20 - 0.80 K/cumm [facility] Eosinophil abs 0.05 0.00 - 0.50 K/cumm [facility] Basophil abs 0.03 0.00 - 0.10 K/cumm [facility] Neutrophil pct 71.8 % [facility] Comment: Interpretive Data Percent cell count reference ranges are not reported, since discordance with absolute values may lead to misinterpretation of CBC data. Current Interpretive Data was last revised on 2017. Imm gran pct 0.4 % [facility] Comment: Interpretive Data Percent cell count reference ranges are not reported, since discordance with absolute values may lead to misinterpretation of CBC data. Current Interpretive Data was last revised on 2017. Lymphocyte pct 15.8 % [facility] Comment: Interpretive Data Percent cell count reference ranges are not reported, since discordance with absolute values may lead to misinterpretation of CBC data. Current Interpretive Data was last revised on 2017. Monocyte pct 11.0 % [facility] Comment: Interpretive Data Percent cell count reference ranges are not reported, since discordance with absolute values may lead to misinterpretation of CBC data. Current Interpretive Data was last revised on 2017. Eosinophil pct 0.6 % [facility] Comment: Interpretive Data Percent cell count reference ranges are not reported, since discordance with absolute values may lead to misinterpretation of CBC data. Current Interpretive Data was last revised on 2017. Basophil pct 0.4 % [facility] Comment: Interpretive Data Percent cell count reference ranges are not reported, since discordance with absolute values may lead to misinterpretation of CBC data. Current Interpretive Data was last revised on 2017. Blood 11/21/2024 6:31 AM CDT 11/21/2024 6:47 AM CDT us Anthony Gorman MD LAB BLOOD ORDERABLES Fi nal Result [facility] Department [place] [id number] * (ABNORMAL) CBC with auto differential (11/21/2024 6:31 AM CDT) WBC 8.09 3.80 - 9.90 K/cumm Hgb 9.9(L) 11.9 - 15.5 g/dL [facility] Hct 32.3(L) 35.6 - 45.5 % [facility] Plt 134(L) 150 - 400 K/cumm [facility] MPV 12.6(H) 9.1 - 12.3 fL [facility] RBC 3.31(L) 3.90 - 5.20 M/cumm [facility] MCV 97.6(H) 81.3 - 96.4 fL [facility] MCH 29.9 27.1 - 33.3 pg [facility] MCHC 30.7(L) 32.3 - 35.7 g/dL [facility] RDW CV 17.2(H) 11.1 - 14.9 % [facility] RDW SD 60.4(H) 35.7 - 48.1 fL [facility] NRBC abs 0.02(H) 0.00 - 0.01 K/cumm [facility] Blood 11/21/2024 6:31 AM CDT 11/21/2024 6:47 AM CDT us Anthony Gorman MD LAB BLOOD ORDERABLES Fi nal Result [facility] [place] [address] * (ABNORMAL) Lipid panel (11/21/2024 6:31 AM [...] revised on 2018. Triglycerides 90 <=149 mg/dL [facility] Comment: Interpretive Data Ages < [...] revised on 2018. HDL 35(L) >=40 mg/dL [facility] Comment: Interpretive Data Ages < [...] on 2018. LDL, calculated 46 <=129 mg/dL [facility] Comment: Interpretive Data Ages < or [...] revised on 2024. Non-HDL Cholesterol 64 mg/dL [facility] Comment: Interpretive Data Ages < or [...] last revised on 2018. Chol/HDL ratio 3 [facility] Blood 11/21/2024 6:31 AM CDT 11/21/2024 6:47 AM CDT Anthony Gorman MD LAB BLOOD ORDERABLES Fi nal Result Performing Organization Address City/[facility]/ZIP Co de Phone Number [facility] [place] [address] * (ABNORMAL) Basic metabolic panel (11/21/2024 6:31 AM CDT) [facility] Sodium 135 135 - 145 mmol/L Potassium, pl 4.9 3.3 - 4.9 mmol/L [facility] Chloride 92(L) 97 - 110 mmol/L [facility] CO2 32 22 - 32 mmol/L [facility] Anion gap 11 2 - 15 mmol/L [facility] BUN 50(H) 6 - 25 mg/dL [facility] Creatinine 5.26(H) 0.60 - 1.10 mg/dL [facility] Glucose 231(H) 70 - 199 mg/dL [facility] Comment: Interpretive Data Fasting glucose [...] 2022. Calcium 10.3 8.5 - 10.3 mg/dL [facility] Blood 11/21/2024 6:31 AM CDT 11/21/2024 6:47 AM CDT Anthony Gorman MD LAB BLOOD ORDERABLES Fi nal Result Performing Organization Address [facility]/ZIP Co de Phone Number [facility] [place] [address] * US MELISSA And Arterial Doppler Lower [...] DATE: 10/30/2024 2:00 PM HISTORY: Atherosclerosis of [place] Arteries of Extremities with Intermittent Cladication, Bilateral [...] dorsalis pedis waveforms are monophasic. Procedure Note rA Aj MD - 10/30/2024 EXAMINATION: BILATERAL LOWER EXTREMITY ARTERY DUPLEX WITH ABIS DATE: 10/30/2024 2:00 PM HISTORY: Atherosclerosis of [place] Arteries of Extremities with Intermittent Cladication, Bilateral [...] by: Ar Aj M.D. Anthony Gorman MD [facility] US PROCEDURES Final Result * US Arterial [...] DATE: 10/30/2024 2:00 PM HISTORY: Atherosclerosis of [place] Arteries of Extremities with Intermittent Cladication, Bilateral [...] DATE: 10/30/2024 2:00 PM HISTORY: Atherosclerosis of [place] Arteries of Extremities with Intermittent Cladication, Bilateral [...] by: Ar Aj M.D. Anthony Gorman MD [facility] US PROCEDURES Final Result * Hepatitis C antibody (08/19/2020 12:07 PM SETTLEMENT CLERK) Hep C Ab Nonreactive Nonreactive GUILLERMINA MCNALLY Comment:Antibodies to HCV no t detected. Does NOT exclude the possibility of recent exposure to HCV. Blood specimen (specimen) 08/19/2020 12:07 PM SETTLEMENT CLERK 08/19/2020 12:15 PM SETTLEMENT CLERK us Humza Trevizo MD LAB MICROB IOLOGY - GENERAL ORDERABLES Edited Result - Final Performing Organization Address [facility] Co de Phone Number [facility] [place] [address] * (ABNORMAL) Hemoglobin A1c (09/04/2019 12:14 AM SETTLEMENT CLERK) Hgb A1C 8.2(H) 4.0 - 5.6 % [facility] Estimated Average Glucose 189 mg/dL [facility] Comment: The ADA recommends reporting an estimated Average Glucose (eAG) with all Hemoglobin A1c results using the equation derived from a study of 507 normal and diabetic adults. Minority populations were underrepresented and children were not included. (Diabetes Care 31:6245-7345, 2008). The eAG is not equivalent to a fasting glucose. Blood specimen (specimen) 09/04/2019 12:14 AM SETTLEMENT CLERK 09/04/2019 12:58 AM SETTLEMENT CLERK us Brandin Pena MD LAB BLOOD ORDERABLES Final Result Performing Organization Address [facility] de Phone Number [facility] [place] [address] from Last 3 Months or Most Recently Relevant to Health Maintenance Insurance [facility] Address: [facility] [address] [place] [address] [employer] MEDICARE [employer]IC[facility] Address: [address] [address] [place] [address] [facility] Address: [facility] [address] [place] [address] [employer] Advance Directives For more information, please contact: [phone] * Full Code (Latest Code Status on File) Date Activated Date Inactivated Comments 11/21/2024 7:27 AM 11/22/2024 8:58 PM * Full Code Date Activated Date Inactivated Comments 08/28/2024 6:35 AM 08/29/2024 9:01 PM * Full Code Date Activated Date Inactivated Comments 09/03/2019 11:07 PM 09/04/2019 6:57 PM * Full Code Date Activated Date Inactivated Comments 07/23/2018 10:39 PM 07/24/2018 7:45 PM Care Teams Oceanology Teacher Relationship Specialty Start Date End Date David Coppola MD PCP - General Family Medicine 10/29/17 Jacob Suarez MD Referring Physician Nephrology 12/20/18 Ros Seay MD Certified [employer] Administrator Cardiology 03/05/19 Abdifatah Villa MD [address] [facility] [address] [place] [address] Consulting Physician Cardiology 09/01/20 Issa Clements MD [address] [facility] [address] [place] [address] Referring Physician General Surgery 09/01/20
--- OUTSIDE RECORDS SUMMARY | 2024-12-04 01:00 | XMS_ITS | Encounter Summary ---
Author Organization [facility] Address [address] [place] [address] Care Team Providers Care Scale Technician Name Role Phone David Coppola MD Primary Care Provider + [phone] David Coppola MD Unavailable [phone] David Coppola MD Unavailable [phone] Virginie Corea RN Unavailable [phone] Encounter Details Date Type Department Care Team (Late st Contact Info) Description 04/10/2018 Nutrition [facility] [address] [place] [phone] [address]/LAURA Social History Tobacco Use Types Packs/Day Years Used Date Smoking Tobacco: Never Smokeless Tobacco: Never Alcohol Use Standard Drinks/Week Comments No 0 (1 standard drink = 0.6 oz pur e alcohol) Comments No Sex and Gender Information Value Date Recorded Sex Assigned at Not on file Legal Sex Female 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 Gender Identity Not on file Sexual [...] AM CDT Appointment [facility] [address] [facility], [address] [place], [place] [id number] [place] [address] [facility] [address] [place] [address] [place] [address] [facility] [address] [place] [address] Cristo Fontenot MD [address] [place] [address] 03/17/2025 1:00 PM CDT Procedure visit [facility] [address] [place] [phone] 03/17/2025 1:30 PM CDT Office Visit [facility] [address] [place] [phone] Avis Dumont, [employer] SALES BEAUTY ADVISOR-WASTE TREATMENT OPERATOR [address] [place] [address] [place] [address] documented as of this encounter Visit Diagnoses Not on filedocumented in this encounter Care Teams Scale Technician Relationship Specialty Start Date End Date David Coppola MD [address] [place] [phone] PCP - General 08/15/16 David Coppola MD [address] [place] [phone] Family Medicine 02/08/15 David Coppola MD [address] [place] [phone] Family Medicine 08/15/16 Virginie Corea RN Pneumatic System Conveyor Operator 02/23/15 documented as of this encounter
--- OUTSIDE RECORDS SUMMARY | 2024-12-04 01:00 | XMS_ITS ---
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, bilateral legs VL US ARTERIAL DUPLEX LOWER EXTREMITY BILATERAL Schedule Routine, Read Routine (OP Routine) 10/30/2024 2:19 PM CDT Atherosclerosis of [place]quille arteries of extremities with intermittent claudication, bilateral legs HEPATITIS C ANTIBODY Routine 08/19/2020 12:07 PM MYSQL DATABASE DEVELOPER ESRD (end stage renal disease) (HCC) HEMOGLOBIN A1C Routine 09/04/2019 12:14 AM MYSQL DATABASE DEVELOPER from Last 3 Months or Most Recently [...] total) by mouth daily 30 tablet 1 2025 Active clopidogreL (PLAVIX) 75 mg tablet Take 1 tablet (75 mg total) by mouth daily 30 tablet 1 2025 Active OneTouch Ultra Blue Test Strip [...] GIB. Patients daughter reports recent admission to [facility] due to concern for GIB. Patient followed up with her outpatient GI. Planning for EGD at the end of November - continue PPI. Assessment & Plan (11/21/2024 3:03 PM CDT): History of peptic ulcer with GIB. Patients daughter reports recent admission to [facility] due to concern for GIB. Patient followed up with her outpatient GI. Planning for EGD at the end of November - closely monitor for bleeding due to starting asa and Plavix as above - continue PPI Assessment & Plan (08/28/2024 1:08 PM MYSQL DATABASE DEVELOPER): History of peptic ulcer with GIB Denies sx continue PPI Heart valve disease 04/06/2023 History of GI bleed 02/04/2023 Bradycardia 09/29/2022 Bleeding 09/29/2022 Idiopathic hypotension 09/13/2021 Complication of arteriovenous dialysis fistula 0 09/07/2020 Type 2 diabetes mellitus wit h diabetic peripheral angiopathy and gangrene, without long-term current use of insulin 08/21/2020 Assessment & Plan (08/28/2024 1:05 PM MYSQL DATABASE DEVELOPER): Home regimen Januvia, tresiba 10 and Victoza. Reviewed PCP records noted hypoglycemia last hospital admit with basal insulins continued Will continue januvia and hold tresiba and victoza SSI Family history of ischemic h eart disease and other diseases of the circulatory system 11/27/2019 Critical limb ischemia of right lower extremity 10/14/2019 Overview (10/14/2019): Added automatically from request for surgery [id number] Assessment & Plan (08/28/2024 12:59 PM MYSQL DATABASE DEVELOPER): S/p uncomplicated balloon angioplasty of the AT, [...] (10/14/2019): Added automatically from request for surgery [id number] Presence of Watchman left atrial appendage closu re device 08/29/2018 Atrial fibrillation, permanent 06/13/2018 Overview (06/13/2018): Added automatically from request for surgery [id number] Assessment & Plan (11/22/2024 1:43 PM CDT): Rate controlled and s/p Watchman due to prior GIB. - continue home coreg as below. Assessment & Plan (11/21/2024 3:39 PM CDT): Rate controlled and s/p Watchman due to prior GIB. - continue home coreg as below Assessment & Plan (08/28/2024 1:03 PM MYSQL DATABASE DEVELOPER): Follows with [facility] cardiology. Rate controlled and s/p Watchman due to prior severe GIB Recently stopped coreg due to bradycardia ASA and plavix to start per IR recs post revascularization Assessment & Plan (07/24/2018 9:29 AM MYSQL DATABASE DEVELOPER): Continue coreg. S/p Watchmann DAVIDA occluder implant for future deescalate anticoagulation. Continue apixiban for now as per EP. Post procedure CXR. 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 PAD (peripheral artery disease) 03/15/2018 Overview (03/15/2018): Added automatically from request for surgery [id number] Assessment & Plan (11/22/2024 1:43 PM CDT): [...] (03/15/2018): Added automatically from request for surgery [id number] Ischemia of foot 03/15/2018 Overview (03/15/2018): Added automatically from request for surgery [id number] Noncompliance 02/24/2018 Essential hypertension 11/10/2017 Assessment & Plan (11/22/2024 1:43 PM CDT): On lisinopril and coreg at home, holding today for lower BP. Resume as able. Assessment & Plan (11/21/2024 3:03 PM CDT): Continue home lisinopril and coreg Assessment & Plan (07/24/2018 9:27 AM MYSQL DATABASE DEVELOPER): Continue home meds and dialysis. Hyperlipidemia associated [...] today Assessment & Plan (08/29/2024 4:04 PM MYSQL DATABASE DEVELOPER): Routine M/W/F r brachial fistula (has required multiple dilations last at [facility] 07/2024 Feeling well post procedure denies dyspnea. Renal consulted for HD prior to discharge Assessment & Plan (07/24/2018 9:26 AM MYSQL DATABASE DEVELOPER): HD as per renal consult. Resume outpt [...] often do you attend chur ch or jainism services? 1 to 4 times per year 09/04/2019 Do you belong to any clubs o r organizations such as congregational groups, unions, fraternal or athletic groups, or [...] on file Legal Sex Female 12:39 PM MYSQL DATABASE DEVELOPER Gender Identity Not on file Sexual Orientation [...] DEV ICE Final Result Performing Organization Address City/[facility]/ZIP Co de Phone Number [facility] Department [place] [address] * (ABNORMAL) POCT glucose (11/22/2024 8:28 AM CDT) Glucose, POC 230(H) 70 - 199 mg/dL Blood 11/22/2024 8:28 AM CDT 11/22/2024 8:28 AM CDT Shahnaz Heredia MD LAB POCT ORDERABLES - DEV ICE Final Result [facility] Department [place] [address] * (ABNORMAL) eGFR (11/22/2024 7:56 AM CDT) [...] ORDERABLES Final R esult Performing Organization Address City/[facility]/ZIP Co de Phone Number [facility] Department [place] [address] * Hepatitis B Surface Antigen Blood (11/22/2024 7:56 AM CDT) Pathologist [facility] HepBsAg Nonreactive Nonreactive Blood 11/22/2024 7:56 AM CDT 11/22/2024 8:36 AM CDT Nina Hopson MD LAB MICROB IOLOGY - GENERAL ORDERABLES Edited Result - Final Performing Organization Address City/[facility]/ZIP Co de Phone Number [facility] Department [place] [address] * (ABNORMAL) CBC without differential (11/22/2024 7:56 AM CDT) WBC 7.32 3.80 - 9.90 K/cumm Hgb 8.6(L) 11.9 - 15.5 g/dL [facility] Hct 28.8(L) 35.6 - 45.5 % [facility] Plt 111(L) 150 - 400 K/cumm [facility] MPV 12.6(H) 9.1 - 12.3 fL [facility] RBC 2.91(L) 3.90 - 5.20 M/cumm [facility] MCV 99.0(H) 81.3 - 96.4 fL [facility] MCH 29.6 27.1 - 33.3 pg [facility] MCHC 29.9(L) 32.3 - 35.7 g/dL [facility] RDW CV 17.2(H) 11.1 - 14.9 % [facility] RDW SD 60.7(H) 35.7 - 48.1 fL [facility] NRBC abs 0.00 0.00 - 0.01 K/cumm [facility] Blood 11/22/2024 7:56 AM CDT 11/22/2024 8:37 AM CDT us Tomy GUADARRAMA LAB BLOOD ORDERABLES Final R esult [facility] [place] [address] * (ABNORMAL) Basic metabolic panel (11/22/2024 7:56 AM CDT) Sodium 131(L) 135 - 145 mmol/L Potassium, pl 5.5(H) 3.3 - 4.9 mmol/L [facility] Chloride 92(L) 97 - 110 mmol/L [facility] CO2 29 22 - 32 mmol/L [facility] Anion gap 10 2 - 15 mmol/L [facility] BUN 58(H) 6 - 25 mg/dL [facility] Creatinine 6.13(H) 0.60 - 1.10 mg/dL [facility] Glucose 257(H) 70 - 199 mg/dL [facility] Comment: Interpretive Data Fasting glucose >/= 126 [...] 2022. Calcium 8.8 8.5 - 10.3 mg/dL [facility]LLERMIN[facility]NA[facility] Blood 11/22/2024 7:56 AM CDT 11/22/2024 8:37 AM CDT Tomy Delgado PA LAB BLOOD ORDERABLES Final R esult [facility] [place] [address] * (ABNORMAL) eGFR (11/21/2024 10:36 PM CDT) [...] 11/21/2024 10:49 PM CDT us Christina Fermin DICE TABLE PERSON LAB BLOOD ORDERABLES Final Result Performing Organization Address City/[facility]/ZIP Co de Phone Number [facility] [place] [address] * (ABNORMAL) CBC without differential (11/21/2024 10:36 PM CDT) Pathologist [facility] WBC 8.51 3.80 - 9.90 K/cumm Hgb 8.9(L) 11.9 - 15.5 g/dL [facility] Hct 29.8(L) 35.6 - 45.5 % [facility] Plt 112(L) 150 - 400 K/cumm [facility] MPV 12.7(H) 9.1 - 12.3 fL [facility] RBC 3.01(L) 3.90 - 5.20 M/cumm [facility] MCV 99.0(H) 81.3 - 96.4 fL [facility] MCH 29.6 27.1 - 33.3 pg [facility] MCHC 29.9(L) 32.3 - 35.7 g/dL [facility] RDW CV 17.2(H) 11.1 - 14.9 % [facility] RDW SD 60.3(H) 35.7 - 48.1 fL [facility] NRBC abs 0.02(H) 0.00 - 0.01 K/cumm [facility] Blood 11/21/2024 10:3 6 PM CDT 11/21/2024 10:49 PM CDT us Christina Fermin NP LAB BLOOD ORDERABLES Final Result [facility] [place] [address] * (ABNORMAL) Phosphorus (11/21/2024 10:36 PM CDT) Pathologist [facility] Phosphorus, pl 6.5(H) 2.3 - 4.5 mg/dL Blood 11/21/2024 10:3 6 PM CDT 11/21/2024 10:49 PM CDT us Robles Alicea MD LAB BLOOD ORDERABLES Gertrude l Result [facility] Department [place] [address] * (ABNORMAL) Basic metabolic panel (11/21/2024 10:36 PM CDT) Sodium 135 135 - 145 mmol/L Potassium, pl 5.5(H) 3.3 - 4.9 mmol/L [facility] Chloride 93(L) 97 - 110 mmol/L [facility] CO2 29 22 - 32 mmol/L [facility] Anion gap 13 2 - 15 mmol/L [facility] BUN 57(H) 6 - 25 mg/dL [facility] Creatinine 5.81(H) 0.60 - 1.10 mg/dL [facility] Glucose 257(H) 70 - 199 mg/dL [facility] Comment: Interpretive Data Fasting glucose >/= 126 [...] 2022. Calcium 9.6 8.5 - 10.3 mg/dL [facility] Blood 11/21/2024 10:3 6 PM CDT 11/21/2024 10:49 PM CDT Christina Fermin DICE TABLE PERSON LAB BLOOD ORDERABLES Final Result [facility] [place] [address] * POCT glucose (11/21/2024 8:23 PM CDT) Glucose, POC 119 70 - 199 mg/dL Blood 11/21/2024 8:23 PM CDT 11/21/2024 8:23 PM CDT Shahnaz Heredia MD LAB POCT ORDERABLES - DEV ICE Final Result Performing Organization Address City/[facility] Co de Phone Number [facility] [place] [address] * POCT glucose (11/21/2024 5:24 PM CDT) Glucose, POC 188 70 - 199 mg/dL Blood 11/21/2024 5:24 PM CDT 11/21/2024 5:24 PM CDT Shahnaz Heredia MD LAB POCT ORDERABLES - DEV ICE Final Result Performing Organization Address [facility] Co de Phone Number [facility] [place] [address] * IR Angiogram Lower Extremity Right (11/21/2024 [...] was obtained. Prior to beginning the procedure, Raymond Protocol was performed to confirm the patient's [...] of the patent vessel was recorded. The 5-Cymraes catheter was placed in the superficial femoral artery and the right lower extremity angiogram was performed in stations to the foot A 45 cm 6-Cymraes sheath was advanced to the superficial femoral [...] was obtained. Prior to beginning the procedure, Raymond Protocol was performed to confirm the patient's [...] of the patent vessel was recorded. The 5-Cymraes catheter was placed in the superficial femoral artery and the right lower extremity angiogram was performed in stations to the foot A 45 cm 6-Cymraes sheath was advanced to the superficial femoral [...] 318(H) 123 - 168 sec POC Performer [id number] [facility] POC Device Number [id number] [facility] Blood 11/21/2024 10:3 6 AM CDT 11/21/2024 10:36 AM CDT Shahnaz Heredia MD LAB POCT ORDERABLES - DEV ICE Final Result Performing Organization Address City/[facility] Co de Phone Number [facility] [place] [address] * (ABNORMAL) POCT Activated clotting time, low range (11/21/2024 9:54 AM CDT) ACT 331(H) 123 - 168 sec POC Performer [id number] [facility] POC Device Number [id number] [facility] Blood 11/21/2024 9:54 AM CDT 11/21/2024 9:54 AM CDT us Shahnaz Heredia MD LAB POCT ORDERABLES - DEV ICE Final Result Performing Organization Address [facility] Co de Phone Number [facility] [place] [address] * (ABNORMAL) POCT Activated clotting time, low range (11/21/2024 9:20 AM CDT) ACT 360(H) 123 - 168 sec POC Performer [id number] [facility] POC Device Number [id number] [facility] Blood 11/21/2024 9:20 AM CDT 11/21/2024 9:20 AM CDT us Shahnaz Heredia MD LAB POCT ORDERABLES - DEV ICE Final Result Performing Organization Address City/[facility] Co de Phone Number [facility] [place] [address] * (ABNORMAL) eGFR (11/21/2024 6:31 AM CDT) Pathologist [facility] eGFR 8(L) >=60 mL/min/1. 73 m2 Comment: [...] MD LAB BLOOD ORDERABLES Fi nal Result [facility] [place] [address] * (ABNORMAL) Differential, auto (11/21/2024 6:31 AM CDT) Pathologist [facility] Neutrophil abs 5.81 1.50 - 6.50 K/cumm Imm gran abs 0.03 0.00 - 0.10 K/cumm [facility] Lymphocyte abs 1.28 0.80 - 3.30 K/cumm [facility] Monocyte abs 0.89(H) 0.20 - 0.80 K/cumm [facility] Eosinophil abs 0.05 0.00 - 0.50 K/cumm [facility] Basophil abs 0.03 0.00 - 0.10 K/cumm [facility] Neutrophil pct 71.8 % [facility] Comment: Interpretive Data Percent cell count reference ranges are not reported, since discordance with absolute values may lead to misinterpretation of CBC data. Current Interpretive Data was last revised on 2017. Imm gran pct 0.4 % [facility] Comment: Interpretive Data Percent cell count reference ranges are not reported, since discordance with absolute values may lead to misinterpretation of CBC data. Current Interpretive Data was last revised on 2017. Lymphocyte pct 15.8 % [facility] Comment: Interpretive Data Percent cell count reference ranges are not reported, since discordance with absolute values may lead to misinterpretation of CBC data. Current Interpretive Data was last revised on 2017. Monocyte pct 11.0 % [facility] Comment: Interpretive Data Percent cell count reference ranges are not reported, since discordance with absolute values may lead to misinterpretation of CBC data. Current Interpretive Data was last revised on 2017. Eosinophil pct 0.6 % [facility] Comment: Interpretive Data Percent cell count reference ranges are not reported, since discordance with absolute values may lead to misinterpretation of CBC data. Current Interpretive Data was last revised on 2017. Basophil pct 0.4 % [facility] Comment: Interpretive Data Percent cell count reference ranges are not reported, since discordance with absolute values may lead to misinterpretation of CBC data. Current Interpretive Data was last revised on 2017. Blood 11/21/2024 6:31 AM CDT 11/21/2024 6:47 AM CDT us Anthony Gorman MD LAB BLOOD ORDERABLES Fi nal Result [facility] Department [place] [address] * (ABNORMAL) CBC with auto differential (11/21/2024 6:31 AM CDT) WBC 8.09 3.80 - 9.90 K/cumm Hgb 9.9(L) 11.9 - 15.5 g/dL [facility] Hct 32.3(L) 35.6 - 45.5 % [facility] Plt 134(L) 150 - 400 K/cumm [facility] MPV 12.6(H) 9.1 - 12.3 fL [facility] RBC 3.31(L) 3.90 - 5.20 M/cumm [facility] MCV 97.6(H) 81.3 - 96.4 fL [facility] MCH 29.9 27.1 - 33.3 pg [facility] MCHC 30.7(L) 32.3 - 35.7 g/dL [facility] RDW CV 17.2(H) 11.1 - 14.9 % [facility] RDW SD 60.4(H) 35.7 - 48.1 fL [facility] NRBC abs 0.02(H) 0.00 - 0.01 K/cumm [facility] Blood 11/21/2024 6:31 AM CDT 11/21/2024 6:47 AM CDT us Anthony Gorman MD LAB BLOOD ORDERABLES Fi nal Result [facility] Department [place] [address] * (ABNORMAL) Lipid panel (11/21/2024 6:31 AM [...] revised on 2018. Triglycerides 90 <=149 mg/dL [facility] Comment: Interpretive Data Ages < or = [...] revised on 2018. HDL 35(L) >=40 mg/dL [facility]NAN[facility] Comment: Interpretive Data Ages < or = [...] on 2018. LDL, calculated 46 <=129 mg/dL [facility] HERNAN[facility] Comment: Interpretive Data Ages < or = [...] 2004;110:227 3. Harjinder Aguirre al. ANTON Cardiol. 2020 November 06;5(5):540-548. doi: 10.1001/[email or web address].2020.0013 Current Interpretive Data was last revised on 2024. Non-HDL Cholesterol 64 mg/dL [facility] Comment: Interpretive Data Ages < or = [...] last revised on 2018. Chol/HDL ratio 3 [facility] Blood 11/21/2024 6:31 AM CDT 11/21/2024 6:47 AM CDT us Anthony Gorman MD LAB BLOOD ORDERABLES Fi nal Result [facility] [place] [address] * (ABNORMAL) Basic metabolic panel (11/21/2024 6:31 AM CDT) Sodium 135 135 - 145 mmol/L Potassium, pl 4.9 3.3 - 4.9 mmol/L [facility] Chloride 92(L) 97 - 110 mmol/L [facility] CO2 32 22 - 32 mmol/L [facility] Anion gap 11 2 - 15 mmol/L [facility] BUN 50(H) 6 - 25 mg/dL [facility] Creatinine 5.26(H) 0.60 - 1.10 mg/dL [facility] Glucose 231(H) 70 - 199 mg/dL [facility] Comment: Interpretive Data Fasting glucose >/= 126 [...] Calcium 10.3 8.5 - 10.3 mg/dL [facility] Blood 11/21/2024 6:31 AM CDT 11/21/2024 6:47 AM CDT Anthony Gorman MD LAB BLOOD ORDERABLES Fi nal Result [facility] [place] [address] * US MELISSA And Arterial Doppler Lower [...] DATE: 10/30/2024 2:00 PM HISTORY: Atherosclerosis of [place] Arteries of Extremities with Intermittent Cladication, Bilateral [...] DATE: 10/30/2024 2:00 PM HISTORY: Atherosclerosis of [place] Arteries of Extremities with Intermittent Cladication, Bilateral [...] by: Ar Aj M.D. Anthony Gorman MD [facility] US PROCEDURES Final Result * [...] DATE: 10/30/2024 2:00 PM HISTORY: Atherosclerosis of [place] Arteries of Extremities with Intermittent Cladication, Bilateral [...] DATE: 10/30/2024 2:00 PM HISTORY: Atherosclerosis of [place] Arteries of Extremities with Intermittent Cladication, Bilateral [...] MD IMG US PROCEDURES Final Result * Hepatitis C antibody (08/19/2020 12:07 PM MYSQL DATABASE DEVELOPER) Hep C Ab Nonreactive Nonreactive [facility] Comment:Antibodies to HCV no t detected. Does NOT exclude the possibility of recent exposure to HCV. Blood specimen (specimen) 08/19/2020 12:07 PM MYSQL DATABASE DEVELOPER 08/19/2020 12:15 PM MYSQL DATABASE DEVELOPER Humza Trevizo MD LAB MICROB IOLOGY - GENERAL ORDERABLES Edited Result - Final Performing Organization Address [facility] de Phone Number [facility] [place] [address] * (ABNORMAL) Hemoglobin A1c (09/04/2019 12:14 AM MYSQL DATABASE DEVELOPER) Hgb A1C 8.2(H) 4.0 - 5.6 % [facility] Estimated Average Glucose 189 mg/dL [facility] Comment: The ADA recommends reporting an estimated Average Glucose (eAG) with all Hemoglobin A1c results using the equation derived from a study of 507 normal and diabetic adults. Minority populations were underrepresented and children were not included. (Diabetes Care 31:8661-1082, 2008). The eAG is not equivalent to a fasting glucose. Blood specimen (specimen) 09/04/2019 12:14 AM MYSQL DATABASE DEVELOPER 09/04/2019 12:58 AM MYSQL DATABASE DEVELOPER Brandin Pena MD LAB BLOOD ORDERABLES Final Result Performing Organization Address City/[facility] Co de Phone Number [facility] [place] [address] from Last 3 Months or Most Recently Relevant to Health Maintenance
--- OUTSIDE RECORDS SUMMARY | 2024-12-04 01:00 | XMS_ITS | Data Portability ---
Author Organization [place] [facility], Main Office Address [address] [place] [address] Care Team Providers Care Pasteurizing Supervisor Name Role Phone NOY PENN Primary Care Provider [phone] NOY PENN Referring Provider Assessment Encounter Date [...] the flexor tendon sheath at the A1 irgo site with 2 cc of 0.5% bupivacaine [...] DO Not Attach Compendium, Do Not Delete/merge, [id number] 5 09:38:35 injection/a spiration joint/bursa (PROC) 2024 025 [email or web address] In-Office Order, Internal Use Only DO Not Attach Compendium DO Not Attach Compendium, Do Not Delete/merge, [id number] 5 09:44:26 injection/a spiration joint/bursa (PROC) 2024 025 [email or web address] In-Office Order, Internal Use Only DO Not Attach Compendium DO Not Attach Compendium, Do Not Delete/merge, [id number] 5 10:20:17 injection/a spiration joint/bursa (PROC) 2024 025 [email or web address] In-Office Order, Internal Use Only DO Not Attach Compendium DO Not Attach Compendium, Do Not Delete/merge, [id number] 5 10:20:17 injection/a spiration joint/bursa (PROC) 2023 024 [email or web address] In-Office Order, Internal Use Only DO Not Attach Compendium DO Not Attach Compendium, Do Not Delete/merge, [id number] 4 09:42:08 injection/a spiration joint/bursa (PROC) 2023 024 [email or web address] In-Office Order, Internal Use Only DO Not Attach Compendium DO Not Attach Compendium, Do Not Delete/merge, [id number] 4 10:20:15 injection/a spiration joint/bursa (PROC) 2023 024 [email or web address] In-Office Order, Internal Use Only DO Not Attach Compendium DO Not Attach Compendium, Do Not Delete/merge, [id number] 4 09:33:15 knee aspiration/ injection (PROC) 2023 024 [email or web address] In-Office Order, Internal Use Only DO Not Attach Compendium DO Not Attach Compendium, Do Not Delete/merge, [id number] 4 15:16:45 Surgeries None recorded. Imaging XR, hip + pelvis, unilateral 2023 024 [email or web address] [facility] [place], [address], [place], [address], 4 11:01:36 XR, knee 2023 024 [email or web address] [facility] [place], [address], [place], [address], 4 11:01:36 XR, hand 2023 024 [email or web address] [facility] [place], [address], [place], [address], 4 09:53:35 Medication Orders bupivacaine HCl 0.5 % (5 mg/mL) injection solution 2024 025 [email or web address] [facility], [address], [place], [address], 5 11:04:00 Kenalog 10 mg/mL suspension for injection 2024 025 [email or web address] [facility], [address] [place], [address], 5 11:04:00 bupivacaine HCl 0.5 % (5 mg/mL) injection solution [address] [facility], [address] [place], [address], 5 09:36:13 Kenalog 10 mg/mL suspension for injection [address] [facility], [address] [place], [address], 5 09:37:00 bupivacaine HCl 0.5 % (5 mg/mL) injection solution [address] [facility], [address] [place], [address], 5 09:36:13 Kenalog 10 mg/mL suspension for injection [address] [facility], [address] [place], [address], 5 09:37:00 bupivacaine HCl 0.5 % (5 mg/mL) injection solution [address] [facility], [address] [place], [address], 5 09:36:13 Kenalog 10 mg/mL suspension for injection [address] [facility] [address], [address] [place], [address], 5 09:37:00 bupivacaine HCl 0.5 % (5 mg/mL) injection solution [address] [facility], [address] [place], [address], 5 09:36:13 Kenalog 10 mg/mL suspension for injection [address] [facility] [address], [address] [place], [address], 5 09:37:00 bupivacaine HCl 0.5 % (5 mg/mL) injection solution [address] [facility] [address], [address] [place], [address], 5 09:36:13 Kenalog 10 mg/mL suspension for injection [address] [facility] [address], [address] [place] [address], [address], 5 09:37:00 prednisone 10 mg tablets in a dose pack [address] [facility] [address], [address] [place] [address], [address], 5 10:21:24 Patient TargetsNo targets recorded. Patient InstructionsNo instructions recorded. Reason for Referral None Reported. Results Created Date Observation Date Name Description Value Unit Range Abnormal Flag Note LastModifiedBy Organization Detail LastModifiedTime 04/10/20 24 XR, hand No observ ation record ed. [email or web address] [facility] [place] [address], [place], [address], 04/10/2024 09:40:52 05/22/20 24 XR, hip + pelvi s, unila teral No observ ation record ed. [email or web address] [facility] [place] [address], [place], [address], 05/22/2024 10:17:36 05/22/20 24 XR, knee No observ ation record ed. [email or web address] [facility] [place] [address], [place], [address], 05/22/2024 10:16:41 Result Notes None recorded. Problems Name Problem SNOMED Code Status Onset Date Resolution Date Notes Provider Name and Address Organization Details Recorded Time Lumbar radiculopa thy 561239351 Active 2021 Not Available [facility] 3 06:11:04 Acquired trigger finger 2051001 Active Not Available [facility] 3 06:11:04 Pain of left elbow joint 0532856601041 9104 Active 2021 Not Available [facility] 3 06:11:04 Radiothera py follow-up 798787216 Active Not Available [facility] 3 06:11:04 Pain of joint of wrist 886960789 Active Not Available [facility] 3 06:11:04 Osteoarthr itis of knee 311827496 Active Not Available [facility] 3 06:11:04 Lumbar spondylosi s 839285589 Active 2021 Not Available [facility] 3 06:11:04 Closed Colles' fracture 210606143 Active Not Available [facility] 3 06:11:04 Chronic low back pain 252897458 Active 2021 Not Available [facility] 3 06:11:04 Thoracic back pain 445245729 Active 2021 Not Available [facility] 3 06:11:05 Low back pain 709414408 Active 2021 Not Available [facility] 3 06:11:05 Knee pain Active Not Available [facility] 3 06:11:05 Lateral epicondyli tis of left humerus 1876856364610 00 Active 2021 Not Available [facility] 3 06:11:05 Pain of left hip joint 6972110666050 00 Active 2021 Not Available [facility] 3 06:11:05 Trochanter ic bursitis of left hip 3930508726724 03 Active 2020 Not Available [facility] 3 06:11:05 Osteoarthr itis of left knee joint 9855486009085 09 Active 2021 Not Available [facility] 3 06:11:05 Osteoarthr itis 919067705 Active Not Available [facility] 3 06:11:05 Kyphosis deformity of spine 335276942 Active 2021 Not Available [facility] 3 06:11:05 Pain of right knee joint 0427610620530 00 Active 2022 CAMI Patel, [place] [facility] 3 14:55:06 Bilateral osteoarthr itis of knees 8629814640357 07 Active 2022 Claudia London null, [place] [facility] 3 15:26:06 Pain of right hip joint 8001643653356 02 Active 2022 Jessie Stark CNA null, [place] [facility] 3 16:00:21 Trochanter ic bursitis of right hip 1912196043068 00 Active 2022 CHIARA Arreguin [address], [address], [place], [address] , [place] [facility] 3 16:37:49 Fracture of inferior pubic ramus 495752494 Active 2022 CHIARA Arreguin [address], [address], [place], [address] , [place] [facility] 3 16:39:00 Contusion of left hip region 3637833382604 9102 Active 2022 CHIARA Arreguin [address], [address], [place], [address] , [place] [facility] 3 11:07:40 Pain in right hand 5551813138160 09 Active 2023 Jessie Stark CAMI null, [facility] 4 09:18:22 Trigger finger of right hand 7548599484238 9101 Active 2023 Susie beach, [facility] 4 09:31:25 Pain of left knee joint 4824159474198 07 Active 2023 Jessie Stark CAMI yong, [facility] 4 09:37:19 Pain in left sacroiliac joint 3692734735350 9102 Active 2023 CHIARA Arreguin [address] [facility], [address], [place], [address] , [facility] 4 10:18:12 Problem Notes None recorded. Procedures Surgical History Date Name Laterality Status Provider Name and Address Organization Details Recorded Time 3 Ortho - Cortisone Injection completed Antoine Abreu MD [address], [address], [place], [address], [facility] 10/24/2022 15:24:25 Foot Surgery completed Jessie Stark CAMI [facility] 09/25/2024 10:22:15 Imaging Results None recorded. Procedure Notes None recorded. Medical Equipment None Reported. Allergies Allergen ID Allergen Name Allergen Category Reaction Reaction Severity Criticality Documentation Date Start Date Code Code System Note Provider Name and Address Organization Details Recorded Time 20296 gabapenti n medicatio n Not available Not available Not available 09/06/2022 01540 RxNorm Not Available [facility] 3 06:17:06 Medications Name Sig Start Date [...] 20 mg by injection route. 2024 active [facility]: 0003- 0494- 20 Not Available Not Available [...] administe red by the provider 06/27 completed [facility]: 0409- 4276- 17 Not Available Not Available [...] Available pen needle, diabetic 32 gauge x /32 USE DIRECTED active Not Available Not Available [...] 20 mg by injection route. 05/24 completed [facility] 16068 -064- 01 Not Available Not Available Not [...] Updated DateTime 09/25/2024 142.24 cm 25.3 kg/m2 38116.94 g Jessie Stark, [employer] [place] [employer] [facility] [employer] 09/25/2024 10:20:33 Date Recorded Body height Body mass index (BMI) Body weight Provider Name and Address Organization Details Last Updated DateTime 11/20/2024 142.24 cm 26.7 kg/m2 09557.49 g Jessie Lincoln, [employer] [place] [employer] [facility] [employer] 11/20/2024 09:36:37 Date Recorded Body height Body mass index (BMI) Body weight Provider Name and Address Organization Details Last Updated DateTime 01/17/2024 142.24 cm 27.6 kg/m2 91570.86 g HARSH Bloom [employer] [facility] 01/17/2024 15:15:43 Date Recorded Body height Body mass index (BMI) Body weight Provider Name and Address Organization Details Last Updated DateTime 04/10/2024 142.24 cm 25.1 kg/m2 67021.35 g Jessie Lincoln, [employer] [place] [employer] [facility] 04/10/2024 09:17:43 Date Recorded Body height Body mass index (BMI) Body weight Provider Name and Address Organization Details Last Updated DateTime 05/22/2024 149.86 cm 25.4 kg/m2 51804.64 g Jessie Lincoln, [employer] [facility] [employer] 05/22/2024 09:36:46 Social History None recorded. Functional Status Question Answer Note LastModified by Organizat ion Details LastModified Time What is your level of alcohol consumption? None [id number] Information not available 09/06/2022 Mental Status None recorded. Family History Relationship Description Onset Age of this Age Resolved Age Notes LastModified by Organization Details LastModified Time Father Heart disease [id number] Not available 09/06/2022 06:06:34 Father Essential hypertension [id number] Not available 09/06/2022 06:06:34 Mother Heart disease [email or web address] Not available 2022 10:08:41 Medical History Condition Response ARTHRITIS Y DIABETES, TYPE Y OSTEOPOROSIS Y USE OF BLOOD THINNERS Y ANEMIA/BLOOD DISORDER Y HYPERTENSION Y HEPATITIS / LIVER DISEASE Y Gynecological HistoryNo gynecological history recorded. Obstetrics History GPAL:G 0 P 0 0 0 0 Past Encounters Encounter ID Performer Location Encounter Start Date Encounter Closed Date Diagnosis/Indication Diagnosis SNOMED-CT Code Diagnosis ICD10 Code Diagnosis Note [id number] CHIARA Arreguin [facility] [place] [address] [place] [address] 02/17/2021 00:00:00 02/17/2021 15:38:54 [id number] Antoine Abreu MD [facility] [place] [address] [place] [address] 03/17/2021 00:00:00 03/17/2021 13:49:47 [id number] Antoine Abreu MD [facility] [place] [address] [place] [address] 05/30/2021 00:00:00 05/30/2021 11:01:16 [id number] Antoine Abreu MD [facility] [place] [address] [place] [address] 06/27/2021 00:00:00 06/27/2021 11:51:54 [id number] Antoine Abreu MD [facility] [place] [address] [place] [address] 07/26/2021 00:00:00 07/26/2021 15:19:20 [id number] Antoine Abreu MD [facility] [place] [address] [place] [address] 09/15/2021 00:00:00 09/15/2021 15:46:26 [id number] Antoine Abreu MD [facility] [place] [address] [place] [address] 10/18/2021 00:00:00 10/18/2021 14:47:13 [id number] Antoine Abreu MD [facility] [place] [address] [place] [address] 11/15/2021 00:00:00 11/15/2021 14:19:46 [id number] Antoine Abreu MD [facility] [place] [address] [place] [address] 12/15/2021 00:00:00 12/15/2021 13:34:31 [id number] Antoine Abreu MD [facility] [place] [address] [place] [address] 01/17/2022 00:00:00 01/17/2022 15:40:04 [id number] Antoine Abreu MD [facility] [place] [address] [place] [address] 02/27/2022 00:00:00 02/27/2022 12:48:14 [id number] Antoine Abreu MD [facility] [place] [address] [place] [address] 2022 00:00:00 2022 12:13:48 [id number] Antoine Abreu MD [facility] [place] [address] [place] [address] 05/02/2022 00:00:00 05/02/2022 15:43:04 [id number] Antoine Abreu MD [facility] [place] [address] [place] [address] 05/23/2022 00:00:00 05/23/2022 17:15:11 [id number] Antoine Abreu MD [facility] [place] [address] [place] [address] 06/20/2022 00:00:00 06/20/2022 14:56:07 [id number] Antoine Abreu MD [facility] [place] [address] [place] [address] 10/24/2022 14:42:21 10/24/2022 15:30:28 Pain of left hip joint 4866127312 09310 M25.552 Trochanter ic bursitis of left hip 8554547668 14470 M70.62 Low back pain 500815276 M54.50 Kyphosis d eformity of spine 056957905 M40.209 Osteoarthr itis of left knee joint 0354063666 00590 M17.12 Pain of le ft elbow joint 3040957796 0809360 M25.522 Lateral ep icondylitis of left humerus 9804934887 21832 M77.12 Lumbar radiculopathy 128 000191 M54.16 Lumbar spondylosis 50109 0009 M47.896 Pain of ri ght knee joint 2940021206 17360 M25.561 History of right total knee replacement 9442113512 937218 Z96.651 [id number] Antoine Abreu MD [facility] [place] [address] [place] [address] 11/30/2022 11:19:37 11/30/2022 11:45:46 Osteoarthritis of left knee joint 6183707242 94849 M17.12 [id number] Antoine Abreu MD [facility] [place] [address] [place] [address] 02/06/2023 15:15:39 02/06/2023 16:29:36 Osteoarthritis of left knee joint 2023028279 20503 M17.12 Pain of ri ght hip joint 5686176095 74898 M25.551 History of right total knee replacement 6560714861 364173 Z96.651 Trochanter ic bursitis of right hip 1366816120 70276 M70.61 Fracture o f inferior pubic ramus 365874216 S32.592S [id number] Velasquez Stearns MD [facility] [place] [address] [place] [address] 05/24/2023 09:47:00 05/24/2023 11:05:33 Pain of left hip joint 4304991024 23751 M25.552 Trochanter ic bursitis of left hip 7307198321 88137 M70.62 Osteoarthr itis of left knee joint 2113482486 10969 M17.12 Knee pain 26297850 M25.5 69 Contusion of left hip region 8603653333 2867983 S70.02XA History of right total knee replacement 3599460090 935071 Z96.938 [id number] MD [facility] [place] [address] [place] [address] 11/13/2023 14:16:28 11/13/2023 14:53:48 Osteoarthritis of left knee joint 3801273365 30239 M17.12 Trochanter ic bursitis of left hip 6727353371 07015 M70.62 [id number] [facility] [place] [address] [place] [address] 01/17/2024 15:11:40 01/17/2024 15:38:24 Osteoarthritis of left knee joint 9059935567 90976 M17.12 [id number] Duarte Mora MD [facility] [place] [address] [place] [address] 04/10/2024 09:13:43 04/10/2024 09:36:50 Pain in right hand 0960324887 18495 M79.641 Trigger fi nger of right hand 8724119130 0582448 M65.076 [id number] MD LAURIE [facility] [place] [address] [place] [address] 05/22/2024 09:32:58 05/22/2024 11:01:36 Trochanteric bursitis of left hip 8520190900 45618 M70.62 Osteoarthr itis of left knee joint 8837322845 90711 M17.12 Pain of le ft knee joint 8216381276 84579 M25.562 Lumbar spondylosis 22443 0009 M47.896 Low back pain 488741617 M54.50 Pain in le ft sacroiliac joint 3490009432 1156479 M53.3 [id number] Duarte Mora MD [facility] [place] [address] [place] [address] 09/25/2024 10:01:48 09/25/2024 10:35:12 Pain of left hip joint 4123126386 17697 M25.552 Osteoarthr itis of left knee joint 9299872086 39100 M17.12 Pain of le ft knee joint 4933984472 41574 M25.562 Trochanter ic bursitis of left hip 7403752187 74723 M70.62 Pain in le ft sacroiliac joint 7912392165 5558426 M53.3 Low back pain 021622359 M54.50 Lumbar radiculopathy 128 866115 M54.16 [id number] Duarte Mora MD [facility] [place] [address] [place] [address] 11/20/2024 09:32:27 11/20/2024 10:22:36 Osteoarthritis of left knee joint 5424736238 88145 M17.12 Pain of le ft knee joint 6333522607 45705 M25.562 History of right total knee replacement 6275574155 408349 Z96.651 Pain in le ft sacroiliac joint 8901560861 9007429 M53.3 Lumbar radiculopathy 128 274001 M54.16 Low back pain 491613239 M54.50 Health Concerns Section Related Observation LastModified by Organization Detai ls LastModified Time None Recorded Concern Status LastModified by Organization Details LastModified Time None Recorded Advance Directives Directive None Recorded Payers Encounter Date Sequence Insurance Name Policy Number Policy Garay Covered Member ID Garay Member ID Guarantor Name 01/17/2024 1 [facility] [place] - MEDICARE COMPLETE PLAN 2 (MEDICARE REPLACEMENT HMO) [id number] Shasta Obando [id number] Shasta Wheatley 01/17/2024 2 [place] WHEN MEDICARE OR MEDICARE REPLACEMENT PRIMARY) Shasta Gonzales n [id number] Shasta Wheatley 04/10/2024 1 [facility] MEDICARE COMPLETE PLAN 2 (MEDICARE REPLACEMENT HMO) [id number] Shasta Farnsworth Hasan [id number] Shasta Farnsworth-Hasan 04/10/2024 2 [place] WHEN [place]ARE OR MEDICARE REPLACEMENT PRIMARY) Shastakristy MalaveHasa n [id number] Shasta Farnsworth-Hasan 05/22/2024 1 [facility] MEDICARE COMPLETE PLAN 2 (MEDICARE REPLACEMENT HMO) [id number] Shasta Puri Ali Hasan [id number] Shasta Farnsworth-Hasan 05/22/2024 2 [place] OR [place]IC[place] REPLACEMENT PRIMARY) Shasta JavadGeoffreya n [id number] Shastakristy Farnsworth-Hasan 09/25/2024 1 [facility] MEDICARE COMPLETE PLAN 2 (MEDICARE REPLACEMENT HMO) [id number] Shasta Puri Ali Hasan [id number] Shastarkisty Farnsworth-Hasan 09/25/2024 2 [place] WHEN [place] OR MEDICARE REPLACEMENT PRIMARY) Shastakristy Morrisa n [id number] Shastakristy Farnsworth-Hasan 11/20/2024 1 [facility] MEDICARE COMPLETE PLAN 2 (MEDICARE REPLACEMENT HMO) [id number] Shasta Farnsworth Hasan [id number] Shasta Farnsworth-Hasan 11/20/2024 2 [place] WHEN [place]ARE OR MEDICARE REPLACEMENT PRIMARY) Shasta FarnsworthGeoffreya n [id number] Shasta Corry Notes Date Note Type Note Provider Name [...] proceed with Synvisc-One today. CHIARA Arreguin [address], [facility] [address], [place], [address], [employer] [facility] 01/17/2024 15:33:52 04/10/2024 text/html Patient returns with [...] unchanged today. CHIARA Arreguin [address], [facility] [address], [place], [address], [employer] 04/10/2024 09:43:15 05/22/2024 text/html Patient returns complaining [...] last 6 months. CHIARA Arreguin [address], [address], [place], [address], [facility] [employer] 05/22/2024 10:21:03 09/25/2024 text/html Patient returns complaining of left knee pain and left low back pain in the sacroiliac region. She has severe primary osteoarthritis of the left knee joint with zvtf-lf-dxpc changes in the medial compartment and mild varus deformity. The patellofemoral articulation also shows significant narrowing which is near ozpy-gi-orqb. Her lumbar spine also shows significant degenerative changes and she has a mildly narrowed but not tzrr-uu-mujb left hip femoroacetabular joint. Bony structures of [...] with the patient. CHIARA Arreguin [address], [address], [place], [address], [facility] [employer] [facility] 09/25/2024 10:46:25 11/20/2024 text/html The patient retu rns for Synvisc-One injection into her left knee. She also has pain in the left sacroiliac region both are chronic in nature. She has severe primary osteoarthritis of the left knee joint with ffew-fa-onob changes in medial compartment mild varus deformity. Patellofemoral articulation also shows significant narrowing which is near nozz-po-kjqn. Lumbar spine shows significant degenerative changes injections have given her good relief previously denies any new trauma no new symptoms or complaints. Has no radicular pain down the leg no numbness or tingling or weakness no bowel or bladder symptoms. CHIARA Arreguin [address] [facility], [facility] [address], [place], [address], [facility] [employer] [facility] 11/20/2024 09:50:42 OBGyn Episode No OBEpisode recorded.
--- OUTSIDE RECORDS SUMMARY | 2024-12-04 01:00 | XMS_ITS | Clinical Summary ---
Author Organization [facility] Address [address] [place] [address] Phone Care Team Providers Care Toe Laster Name Role Phone David Coppola MD Primary Care Provider [phone] Allergies Active Allergy Reactions Criticality Noted Date [...] Comments Blood Pressure 71/53 09/01/2020 2:54 PM TENT WORKER 148 /36 Pulse 72 09/01/2020 2:54 PM TENT WORKER Temperature 36.4 C (97.6 F) 09/01/2020 2:54 PM TENT WORKER Respiratory Rate - - Oxygen Saturation 97% 09/01/2020 2:54 PM TENT WORKER Inhaled Oxygen Concentration - - Weight 56.6 kg (124 lb 11.2 oz) 09/01/2020 2:54 PM TENT WORKER Height 144.8 cm (4' 9) 09/01/2020 2:54 PM TENT WORKER Body Mass Index 26.98 09/01/2020 2:54 PM TENT WORKER Plan of Treatment Health Maintenance Due Date [...] 1 , 04/09/2014, 04/09/2014 Insurance MEDICAID [place] [facility] [id number] Care Teams Toe Laster Relationship Specialty Start Date End Date David Coppola MD PCP - General Family Practice 05/14/20
--- OUTSIDE RECORDS SUMMARY | 2024-12-04 01:00 | XMS_ITS | Encounter Summary ---
Author Organization [facility] Address [address] [place] [address] Phone Care Team Providers Care Change Control Manager Name Role Phone David Coppola MD Primary Care Provider [phone] Jacob Suarez MD Unavailable [phone] Marnie Lara RN Unavailable Ros Seay MD Unavailable Johana Edmond RN Unavailable Abdifatah Villa MD Unavailable Issa Clements MD Unavailable [phone] Encounter Details Date Type Department Care Team (Late st Contact Info) Description 05/13/2018 Telephone [facility] Cardiology [address] [facility] Advanced Medicine [address] [place] [address] [place] [address] Cameron Haro MD [address] [place] [address] Social History Tobacco Use Types Packs/Day Years Used Date Smoking Tobacco: Never Smokeless Tobacco: Never Alcohol Use Standard Drinks/Week Comments No 0 (1 standard drink = 0.6 oz pur e alcohol) Comments No Sex and Gender Information Value Date Recorded Sex Assigned at Not on file Legal Sex Female 12:39 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 Gender Identity Not on file Sexual [...] Influenza, adult 09/04/2019 09/04/2019 09/11/2019 3:05 AM STITCHER OPERATOR Abscess/Wound/Cellulitis 10/16/2019 10/16/2019 3:05 AM CDT documented as of this encounter Care Teams Change Control Manager Relationship Specialty Start Date End Date David Coppola MD PCP - General Family Medicine 10/29/17 Jacob Suarez MD Referring Physician Nephrology 12/20/18 Marnie Lara RN Registered Nurse Forming Yardage Control Operator 12/20/1809/03 Ros Seay MD [facility] 03/05/19 Johana Edmond, RN [address] [facility] [address] [place] [address] Forming Yardage Control Operator 08/21/19 Abdifatah Villa MD [address] [facility] [address] [place] [address] Consulting Physician Cardiology 09/01/20 Issa Clements MD [address] [facility] [address] [place] [address] Referring Physician General Surgery 09/01/20 documented as of this encounter
--- OUTSIDE RECORDS SUMMARY | 2024-12-04 01:00 | XMS_ITS | Referral Summary ---
Author Organization [facility] [address] Address [address] [place] [address] Care Team Providers Care Erp Engineer Name Role Phone David Coppola MD Primary Care Provider [phone] Jacob Suarez MD Unavailable [phone] Ros Seay MD Unavailable [phone] Abdifatah Villa MD Unavailable Issa Clements MD Unavailable [phone] Encounters Date Type Department Care Team Description 11/28/2024 Telephone [facility] Radiology [address] [place] [address] Alena Fontenot RN 11/27/2024 Orders Only [facility] Radiology [address] [place] [address] Alena Fontenot, RN Atherosclerosis of [place] arteries of extremities with intermittent claudication, right leg (Primary Dx); Atherosclerosis of [place] arteries of extremities with rest pain, bilateral legs (HCC); Atherosclerosis of [place] arteries of extremities with rest pain, left leg (HCC) 11/27/2024 Telephone [facility] Radiology [address] [place] [address] Alena Fontenot, ABENA 11/21/2024 12:00 PM CDT - 11/22/2024 4:55 PM CDT Hospital Encounter [address] [place] [address] Shahnaz Heredia MD Guevara, Carlos Javier, MD Pain and swelling of right lower extremity (Primary Dx); Non-healing wound of right lower extremity; Pain and swelling of lower extremity, right; PAD (peripheral artery disease) Discharge Disposition: Discharge to home or self care 11/21/2024 Telephone Radiology [address] [place] [address] Hollie Martinez PA 11/21/2024 6:00 AM CDT Office Visit [address] 1st [place] [address] PAD (peripheral artery disease) 11/19/2024 Telephone [facility] Scheduling [address] [place] [address] Cynthia Blankenship MD Scheduling Appointments 11/19/2024 Telephone [facility] Radiology [address] [place] [address] Yaritza Golden, ABENA 11/18/2024 Telephone [facility] Radiology [address] [place] [address] Tomy Reynolds, ABENA 11/17/2024 Orders Only [facility] Radiology [address] [place] [address] Alena Fontenot, RN PAD (peripheral artery disease) (Primary Dx) 11/17/2024 Telephone [facility] Radiology [address] [place] [address] Alena Fontenot, RN 11/11/2024 Telephone [facility] Radiology [address] [place] [address] Alena Fontenot, RN 11/07/2024 Telephone [facility] Radiology [address] [place] [address] Alena Fontenot, RN 11/05/2024 Telephone [facility] Radiology [address] [place] [address] Alena Fontenot, RN 11/04/2024 Telephone [facility] Radiology [address] [place] [address] Alena Fontenot RN 10/30/2024 1:14 PM CDT - 10/30/2024 11:59 PM CDT Hospital Encounter [facility] Vascular Lab [id number] [place] [address] Atherosclerosis of [place] arteries of extremities with intermittent claudication, bilateral legs Discharge Disposition: Discharge to home or self care 10/30/2024 1:00 PM CDT - 10/30/2024 11:59 PM CDT Hospital Encounter [facility] Lab [id number] [place] [address] Atherosclerosis of [place] arteries of extremities with intermittent claudication, bilateral legs Discharge Disposition: Discharge to home or self care 10/24/2024 Orders Only [facility] Radiology [address] [place] [address] Alena Fontenot, RN Atherosclerosis of [place] arteries of extremities with intermittent claudication, bilateral legs (Primary Dx) from Last 3 Months Allergies [...] GIB. Patients daughter reports recent admission to [facility] due to concern for GIB. Patient followed up with her outpatient GI. Planning for EGD at the end of November - continue PPI. Assessment & Plan (11/21/2024 3:03 PM CDT): History of peptic ulcer with GIB. Patients daughter reports recent admission to [facility] due to concern for GIB. Patient followed up with her outpatient GI. Planning for EGD at the end of November - closely monitor for bleeding due to starting asa and Plavix as above - continue PPI Assessment & Plan (08/28/2024 1:08 PM LABORATORY HELPER): History of peptic ulcer with GIB Denies sx continue PPI Heart valve disease 04/06/2023 History of GI bleed 02/04/2023 Bradycardia 09/29/2022 Bleeding 09/29/2022 Idiopathic hypotension 09/13/2021 Complication of arteriovenous dialysis fistula 0 09/07/2020 Type 2 diabetes mellitus wit h diabetic peripheral angiopathy and gangrene, without long-term current use of insulin 08/21/2020 Assessment & Plan (08/28/2024 1:05 PM LABORATORY HELPER): Home regimen Januvia, tresiba 10 and Victoza. Reviewed PCP records noted hypoglycemia last hospital admit with basal insulins continued Will continue januvia and hold tresiba and victoza SSI Family history of ischemic h eart disease and other diseases of the circulatory system 11/27/2019 Critical limb ischemia of right lower extremity 10/14/2019 Overview (10/14/2019): Added automatically from request for surgery [id number] Assessment & Plan (08/28/2024 12:59 PM LABORATORY HELPER): S/p uncomplicated balloon angioplasty of the AT, [...] (10/14/2019): Added automatically from request for surgery [id number] Presence of Watchman left atrial appendage closu re device 08/29/2018 Atrial fibrillation, permanent 06/13/2018 Overview (06/13/2018): Added automatically from request for surgery [id number] Assessment & Plan (11/22/2024 1:43 PM CDT): Rate controlled and s/p Watchman due to prior GIB. - continue home coreg as below. Assessment & Plan (11/21/2024 3:39 PM CDT): Rate controlled and s/p Watchman due to prior GIB. - continue home coreg as below Assessment & Plan (08/28/2024 1:03 PM LABORATORY HELPER): Follows with [facility] cardiology. Rate controlled and s/p Watchman due to prior severe GIB Recently stopped coreg due to bradycardia ASA and plavix to start per IR recs post revascularization Assessment & Plan (07/24/2018 9:29 AM LABORATORY HELPER): Continue coreg. S/p Watchmann DAVIDA occluder implant for future deescalate anticoagulation. Continue apixiban for now as per EP. Post procedure CXR. 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 PAD (peripheral artery disease) 03/15/2018 Overview (03/15/2018): Added automatically from request for surgery [id number] Assessment & Plan (11/22/2024 1:43 PM CDT): [...] (03/15/2018): Added automatically from request for surgery [id number] Ischemia of foot 03/15/2018 Overview (03/15/2018): Added automatically from request for surgery [id number] Noncompliance 02/24/2018 Essential hypertension 11/10/2017 Assessment & Plan (11/22/2024 1:43 PM CDT): On lisinopril and coreg at home, holding today for lower BP. Resume as able. Assessment & Plan (11/21/2024 3:03 PM CDT): Continue home lisinopril and coreg Assessment & Plan (07/24/2018 9:27 AM LABORATORY HELPER): Continue home meds and dialysis. Hyperlipidemia associated with type 2 diabetes m susannaitus 11/10/2017 ESRD (end stage renal disease) on dialysis 11/10 Assessment & Plan (11/22/2024 1:43 PM CDT): Patient on HD MWF - Received Dialysis today on 11/22. Resume outpatient schedule. Assessment & Plan (11/21/2024 3:03 PM CDT): Patient on HD MWF - nephrology consult for dialysis today Assessment & Plan (08/29/2024 4:04 PM LABORATORY HELPER): Routine M/W/F r brachial fistula (has required multiple dilations last at [facility] 07/2024 Feeling well post procedure denies dyspnea. Renal consulted for HD prior to discharge Assessment & Plan (07/24/2018 9:26 AM LABORATORY HELPER): HD as per renal consult. Resume outpt [...] Resolved Date Coronary artery disease invo [place]ving [place] coronary artery of [place] heart without angina pectoris 03/07/2021 03/07/2021 Preoperative cardiovascular examination 03/07/2021 09/29/2022 Hypoxia 11/27/2019 04/03/2023 Toe ulcer, left, with unspecified severity 09/16/2018 03/07/2021 Overview (09/16/2018): Added automatically from request for surgery [id number] Cough 11/10/2017 03/07/2021 Lumbago 06/04/2017 03/07/2021 Pain of lower extremity 06/04/2017/12/2022 Chronic anticoagulation 08/22/201610/2018 Overview (10/12/2016): Chronic anticoagulation Stage 4 chronic kidney disease 04/21/2014 04/03/2023 Pain in joint 03/04/2014 04/03/2023 Paroxysmal atrial fibrillation 05/06/2024 ESRD (end stage renal disease) ([facility] 03/07/2021 Pre-transplant evaluation fo r kidney [...] often do you attend chur ch or buddhism services? 1 to 4 times per year 09/04/2019 Do you belong to any clubs o r organizations such as mu-ism groups, unions, fraternal or athletic groups, or [...] on file Legal Sex Female 12:39 PM LABORATORY HELPER Gender Identity Not on file Sexual [...] disease) (HCC) Medical Devices Implanted Type Area Rubber Roller Grinder Device Identifier Shelf Expiration Date Model / Serial / Lot Device Clsr 27mm Davida Watchman - [id number] - [id number] Implanted:Qty : 1 on 07/23/2018 by Mike Mccloud MD PhD at [facility] Other - see comments Left: Heart [employer] Breanna 12/13/2020 27MM-DAVIDA CLOSURE DEVICE / [id number] / [id number] Description:Left atrial appe ndage closure device Watchman Daig Breanna/[employer] [id number] Angio-Seal Vip Bondek-Plus 6fr .035in 70cm Hemostatic Latex Free - [id number] Implanted:Qty : 1 on 03/20/2018 by Abdifatah Villa MD at [facility] Daig Breanna[employer] 12/06/2018 [id number] / / [id number] Device Davida Watchman Procedure - [id number] Implanted:Qty : 1 on 07/23/2018 by Mike Mccloud MD PhD at [facility] [employer] [facility] WMPERPROCDEVICE 1 - 3 PC / / Description:1 Device Daig Breanna[employer] [id number] Angio-Seal Vip Bondek-Plus 6fr .035in 70cm Hemostatic Latex Free - [id number] Implanted:Qty : 1 on 09/26/2018 by Abdifatah Villa MD at [facility] Daig Breanna[employer] 06/07/2019 [id number] / / [id number] Dai Breanna [id number] Device Closure Angio-Seal Vip Bondek-Plus Polyglyd L70 Cm Od6 Fr Odsec.035 In Vascular - [id number] Implanted:Qty : 1 on 10/16/2019 by Abdifatah Villa MD at [facility]/[employer] [id number] / / [employer] Device 6fr Closure Celt Acd Vascular Sterile Latex Free Disposable [facility]av[facility]06 - [id number] Implanted:Qty : 1 on 08/28/2024 at [facility] [employer] 01/01/2027 KCLT-06 / / [id number] Ter[employer] Angio-Seal Vip 6fr Closere Device [id number] - [id number] Implanted:Qty : 1 on 11/21/2024 at [facility] [employer] 03/26/2025 [id number] / / [id number] Procedures Procedure Name Priority Date/Time Associated Diagnosis [...] Routine) 10/30/2024 3:13 PM CDT Atherosclerosis of [place] arteries of extremities with intermittent claudication, bilateral legs VL US ARTERIAL DUPLEX LOWER EXTREMITY BILATERAL Schedule Routine, Read Routine (OP Routine) 10/30/2024 2:19 PM CDT Atherosclerosis of [place] arteries of extremities with intermittent claudication, bilateral legs HEPATITIS C ANTIBODY Routine 08/19/2020 12:07 PM LABORATORY HELPER ESRD (end stage renal disease) (HCC) HEMOGLOBIN A1C Routine 09/04/2019 12:14 AM LABORATORY HELPER from Last 3 Months or Most Recently Relevant to Health Maintenance Results * (ABNORMAL) POCT glucose (11/22/2024 12:10 PM CDT) Glucose, POC 231(H) 70 - 199 mg/dL Blood 11/22/2024 12:1 0 PM CDT 11/22/2024 12:10 PM CDT Shahnaz Heredia MD LAB POCT ORDERABLES - DEV ICE Final Result Performing Organization Address [facility]/ZIP Co de Phone Number [facility] [place] [address] * (ABNORMAL) POCT glucose (11/22/2024 8:28 AM CDT) Glucose, POC 230(H) 70 - 199 mg/dL Blood 11/22/2024 8:28 AM CDT 11/22/2024 8:28 AM CDT Shahnaz Heredia MD LAB POCT ORDERABLES - DEV ICE Final Result Performing Organization Address City/[facility]/ZIP Co de Phone Number [facility] [place] [address] * (ABNORMAL) eGFR (11/22/2024 7:56 AM CDT) [...] [facility] LAB BLOOD ORDERABLES Final R [facility] [place] [address] * Hepatitis B Surface Antigen Blood (11/22/2024 7:56 AM CDT) HepBsAg Nonreactive Nonreactive Blood 11/22/2024 7:56 AM CDT 11/22/2024 8:36 AM CDT Nina Hopson MD LAB MICROB IOLOGY - GENERAL ORDERABLES Edited Result - Final [facility] [place] [address] * (ABNORMAL) CBC without differential (11/22/2024 7:56 AM CDT) [facility] WBC 7.32 3.80 - 9.90 K/cumm Hgb 8.6(L) 11.9 - 15.5 g/dL [facility] Hct 28.8(L) 35.6 - 45.5 % [facility] Plt 111(L) 150 - 400 K/cumm [facility] MPV 12.6(H) 9.1 - 12.3 fL [facility] RBC 2.91(L) 3.90 - 5.20 M/cumm [facility] MCV 99.0(H) 81.3 - 96.4 fL [facility] MCH 29.6 27.1 - 33.3 pg [facility] MCHC 29.9(L) 32.3 - 35.7 g/dL [facility] RDW CV 17.2(H) 11.1 - 14.9 % [facility] RDW SD 60.7(H) 35.7 - 48.1 fL [facility] NRBC abs 0.00 0.00 - 0.01 K/cumm [facility] Blood 11/22/2024 7:56 AM CDT 11/22/2024 8:37 AM CDT us Tomy [facility]AMA LAB BLOOD ORDERABLES Final R esult [facility] [place] [address] * (ABNORMAL) Basic metabolic panel (11/22/2024 7:56 AM CDT) [facility] Sodium 131(L) 135 - 145 mmol/L Potassium, pl 5.5(H) 3.3 - 4.9 mmol/L [facility] Chloride 92(L) 97 - 110 mmol/L [facility] CO2 29 22 - 32 mmol/L [facility] Anion gap 10 2 - 15 mmol/L [facility] BUN 58(H) 6 - 25 mg/dL [facility] Creatinine 6.13(H) 0.60 - 1.10 mg/dL [facility] Glucose 257(H) 70 - 199 mg/dL [facility] Comment: Interpretive Data Fasting glucose >/= [...] Calcium 8.8 8.5 - 10.3 mg/dL [facility] Blood 11/22/2024 7:56 AM CDT 11/22/2024 8:37 AM CDT Tomy GUADARRAMA LAB BLOOD ORDERABLES Final R esult [facility] [place] [address] * (ABNORMAL) eGFR (11/21/2024 10:36 PM CDT) [...] PM CDT 11/21/2024 10:49 PM CDT [facility]AB[facility] Final Result [facility] [place] [address] * (ABNORMAL) CBC without differential (11/21/2024 10:36 PM CDT) WBC 8.51 3.80 - 9.90 K/cumm Hgb 8.9(L) 11.9 - 15.5 g/dL [facility] Hct 29.8(L) 35.6 - 45.5 % [facility] Plt 112(L) 150 - 400 K/cumm [facility] MPV 12.7(H) 9.1 - 12.3 fL [facility] RBC 3.01(L) 3.90 - 5.20 M/cumm [facility] MCV 99.0(H) 81.3 - 96.4 fL [facility] MCH 29.6 27.1 - 33.3 pg [facility] MCHC 29.9(L) 32.3 - 35.7 g/dL [facility] RDW CV 17.2(H) 11.1 - 14.9 % [facility] RDW SD 60.3(H) 35.7 - 48.1 fL [facility] NRBC abs 0.02(H) 0.00 - 0.01 K/cumm [facility] Blood 11/21/2024 10:3 6 PM CDT 11/21/2024 10:49 PM CDT Christina Fermin NP LAB BLOOD ORDERABLES Final Result [facility] [place] [address] * (ABNORMAL) Phosphorus (11/21/2024 10:36 PM CDT) Pathologist [facility] Phosphorus, pl 6.5(H) 2.3 - 4.5 mg/dL Blood 11/21/2024 10:3 6 PM CDT 11/21/2024 10:49 PM CDT us Robles Alicea MD LAB BLOOD ORDERABLES Gertrude arthur Result [facility] [place] [address] * (ABNORMAL) Basic metabolic panel (11/21/2024 10:36 PM CDT) [facility] Sodium 135 135 - 145 mmol/L Potassium, pl 5.5(H) 3.3 - 4.9 mmol/L [facility] Chloride 93(L) 97 - 110 mmol/L [facility] CO2 29 22 - 32 mmol/L [facility] Anion gap 13 2 - 15 mmol/L [facility] BUN 57(H) 6 - 25 mg/dL [facility] Creatinine 5.81(H) 0.60 - 1.10 mg/dL [facility] Glucose 257(H) 70 - 199 mg/dL [facility] Comment: Interpretive Data Fasting glucose >/= [...] Calcium 9.6 8.5 - 10.3 mg/dL [facility] Blood 11/21/2024 10:3 6 PM CDT 11/21/2024 10:49 PM CDT Christina Fermin NP LAB BLOOD ORDERABLES Final Result Performing Organization Address [facility] Co de Phone Number [facility] [place] [employer] [address] * POCT glucose (11/21/2024 8:23 PM CDT) Glucose, POC 119 70 - 199 mg/dL Blood 11/21/2024 8:23 PM CDT 11/21/2024 8:23 PM CDT Shahnaz Heredia MD LAB POCT ORDERABLES - DEV ICE Final Result Performing Organization Address [facility] Co de Phone Number [facility] [place] [address] * POCT glucose (11/21/2024 5:24 PM CDT) Glucose, POC 188 70 - 199 mg/dL Blood 11/21/2024 5:24 PM CDT 11/21/2024 5:24 PM CDT Shahnaz Heredia MD LAB POCT ORDERABLES - DEV ICE Final Result Performing Organization Address [facility] de Phone Number [facility] [place] [address] * IR Angiogram Lower Extremity Right (11/21/2024 [...] was obtained. Prior to beginning the procedure, [place] Protocol was performed to confirm the patient's [...] of the patent vessel was recorded. The 5-Tongan catheter was placed in the superficial femoral artery and the right lower extremity angiogram was performed in stations to the foot A 45 cm 6-Tongan sheath was advanced to the superficial femoral [...] was obtained. Prior to beginning the procedure, [place] Protocol was performed to confirm the patient's [...] of the patent vessel was recorded. The 5-Tongan catheter was placed in the superficial femoral artery and the right lower extremity angiogram was performed in stations to the foot A 45 cm 6-Tongan sheath was advanced to the superficial femoral [...] 318(H) 123 - 168 sec POC Performer [id number] [facility] POC Device Number [id number] [facility] Blood 11/21/2024 10:3 6 AM CDT 11/21/2024 10:36 AM CDT Shahnaz Heredia MD LAB POCT ORDERABLES - DEV ICE Final Result Performing Organization Address City/[facility]/ZIP Co de Phone Number [facility] [place] [address] * (ABNORMAL) POCT Activated clotting time, low range (11/21/2024 9:54 AM CDT) ACT 331(H) 123 - 168 sec POC Performer [id number] [facility] POC Device Number [id number] [facility] Blood 11/21/2024 9:54 AM CDT 11/21/2024 9:54 AM CDT Shahnaz Heredia MD LAB POCT ORDERABLES - DEV ICE Final Result Performing Organization Address City/[facility]/ZIP Co de Phone Number [facility] [place] [address] * (ABNORMAL) POCT Activated clotting time, low range (11/21/2024 9:20 AM CDT) ACT 360(H) 123 - 168 sec POC Performer [id number] [facility] POC Device Number [id number] [facility] Blood 11/21/2024 9:20 AM CDT 11/21/2024 9:20 AM CDT Shahnaz Heredia MD LAB POCT ORDERABLES - DEV ICE Final Result Performing Organization Address [facility] Co de Phone Number [facility] [place] [address] * (ABNORMAL) eGFR (11/21/2024 6:31 AM CDT) [facility] eGFR 8(L) >=60 mL/min/1. 73 m2 Comment: [...] ORDERABLES Fi nal Result Performing Organization Address City/[facility]/ZIP Co de Phone Number [facility] [place] [address] * (ABNORMAL) Differential, auto (11/21/2024 6:31 AM CDT) Neutrophil abs 5.81 1.50 - 6.50 K/cumm Imm gran abs 0.03 0.00 - 0.10 K/cumm [facility] Lymphocyte abs 1.28 0.80 - 3.30 K/cumm [facility] Monocyte abs 0.89(H) 0.20 - 0.80 K/cumm [facility] Eosinophil abs 0.05 0.00 - 0.50 K/cumm [facility] Basophil abs 0.03 0.00 - 0.10 K/cumm [facility] Neutrophil pct 71.8 % [facility] Comment: Interpretive Data Percent cell count reference ranges are not reported, since discordance with absolute values may lead to misinterpretation of CBC data. Current Interpretive Data was last revised on 2017. Imm gran pct 0.4 % [facility] Comment: Interpretive Data Percent cell count reference ranges are not reported, since discordance with absolute values may lead to misinterpretation of CBC data. Current Interpretive Data was last revised on 2017. Lymphocyte pct 15.8 % [facility] Comment: Interpretive Data Percent cell count reference ranges are not reported, since discordance with absolute values may lead to misinterpretation of CBC data. Current Interpretive Data was last revised on 2017. Monocyte pct 11.0 % [facility] Comment: Interpretive Data Percent cell count reference ranges are not reported, since discordance with absolute values may lead to misinterpretation of CBC data. Current Interpretive Data was last revised on 2017. Eosinophil pct 0.6 % [facility] Comment: Interpretive Data Percent cell count reference ranges are not reported, since discordance with absolute values may lead to misinterpretation of CBC data. Current Interpretive Data was last revised on 2017. Basophil pct 0.4 % [facility] Comment: Interpretive Data Percent cell count reference ranges are not reported, since discordance with absolute values may lead to misinterpretation of CBC data. Current Interpretive Data was last revised on 2017. Blood 11/21/2024 6:31 AM CDT 11/21/2024 6:47 AM CDT Anthony Gorman MD LAB BLOOD ORDERABLES Fi nal Result [facility] [place] [address] * (ABNORMAL) CBC with auto differential (11/21/2024 6:31 AM CDT) WBC 8.09 3.80 - 9.90 K/cumm Hgb 9.9(L) 11.9 - 15.5 g/dL [facility] Hct 32.3(L) 35.6 - 45.5 % [facility] Plt 134(L) 150 - 400 K/cumm [facility] MPV 12.6(H) 9.1 - 12.3 fL [facility] RBC 3.31(L) 3.90 - 5.20 M/cumm [facility] MCV 97.6(H) 81.3 - 96.4 fL [facility] MCH 29.9 27.1 - 33.3 pg [facility] MCHC 30.7(L) 32.3 - 35.7 g/dL [facility] RDW CV 17.2(H) 11.1 - 14.9 % [facility] RDW SD 60.4(H) 35.7 - 48.1 fL [facility] NRBC abs 0.02(H) 0.00 - 0.01 K/cumm [facility] Blood 11/21/2024 6:31 AM CDT 11/21/2024 6:47 AM CDT Anthony Gorman MD LAB BLOOD ORDERABLES Fi nal Result [facility] [place] [address] * (ABNORMAL) Lipid panel (11/21/2024 6:31 AM [...] on 2018. Triglycerides 90 <=149 mg/dL [facility] Comment: Interpretive Data Ages < or [...] on 2018. HDL 35(L) >=40 mg/dL [facility] Comment: Interpretive Data Ages < or [...] 2018. LDL, calculated 46 <=129 mg/dL [facility] Comment: Interpretive Data Ages < or [...] on 2024. Non-HDL Cholesterol 64 mg/dL [facility] Comment: Interpretive Data Ages < or [...] revised on 2018. Chol/HDL ratio 3 [facility] Blood 11/21/2024 6:31 AM CDT 11/21/2024 6:47 AM CDT Anthony Gorman MD LAB BLOOD ORDERABLES Fi nal Result [facility] [place] [address] * (ABNORMAL) Basic metabolic panel (11/21/2024 6:31 AM CDT) Sodium 135 135 - 145 mmol/L Potassium, pl 4.9 3.3 - 4.9 mmol/L [facility] Chloride 92(L) 97 - 110 mmol/L [facility] CO2 32 22 - 32 mmol/L [facility] Anion gap 11 2 - 15 mmol/L [facility] BUN 50(H) 6 - 25 mg/dL [facility] Creatinine 5.26(H) 0.60 - 1.10 mg/dL [facility] Glucose 231(H) 70 - 199 mg/dL [facility] Comment: Interpretive Data Fasting glucose >/= [...] Calcium 10.3 8.5 - 10.3 mg/dL [facility] Blood 11/21/2024 6:31 AM CDT 11/21/2024 6:47 AM CDT Anthony Gorman MD LAB BLOOD ORDERABLES Fi nal Result [facility] [place] [address] * US MELISSA And Arterial Doppler Lower [...] DATE: 10/30/2024 2:00 PM HISTORY: Atherosclerosis of [place] Arteries of Extremities with Intermittent Cladication, Bilateral [...] DATE: 10/30/2024 2:00 PM HISTORY: Atherosclerosis of [place] Arteries of Extremities with Intermittent Cladication, Bilateral [...] DATE: 10/30/2024 2:00 PM HISTORY: Atherosclerosis of [place] Arteries of Extremities with Intermittent Cladication, Bilateral [...] DATE: 10/30/2024 2:00 PM HISTORY: Atherosclerosis of [place] Arteries of Extremities with Intermittent Cladication, Bilateral [...] * Hepatitis C antibody (08/19/2020 12:07 PM LABORATORY HELPER) Pathologist [facility] Hep C Ab Nonreactive Nonreactive [facility] Comment:Antibodies to HCV no t detected. Does NOT exclude the possibility of recent exposure to HCV. Blood specimen (specimen) 08/19/2020 12:07 PM LABORATORY HELPER 08/19/2020 12:15 PM LABORATORY HELPER Humza Trevizo MD LAB MICROB IOLOGY - GENERAL ORDERABLES Edited Result - Final [facility] [place] [address] * (ABNORMAL) Hemoglobin A1c (09/04/2019 12:14 AM LABORATORY HELPER) Hgb A1C 8.2(H) 4.0 - 5.6 % [facility] Estimated Average Glucose 189 mg/dL [facility] Comment: The ADA recommends reporting an estimated Average Glucose (eAG) with all Hemoglobin A1c results using the equation derived from a study of 507 normal and diabetic adults. Minority populations were underrepresented and children were not included. (Diabetes Care 31:6722-5234, 2008). The eAG is not equivalent to a fasting glucose. Blood specimen (specimen) 09/04/2019 12:14 AM LABORATORY HELPER 09/04/2019 12:58 AM LABORATORY HELPER Brandin Pena MD LAB BLOOD ORDERABLES Final Result Performing Organization Address City/State/ZIP Co in Phone Number [facility] [place] [address] from Last 3 Months or Most Recently Relevant to Health Maintenance Insurance [facility] MEDICARE ADVANTAGE [place] MEDICARE [facility] Address: [address] [address] [place] [address] [facility] [place] [address] [facility] MEDICARE ADVANTAGE [place] Advance Directives For more information, please contact: [phone] * Full Code (Latest Code Status on File) Date Activated Date Inactivated Comments 11/21/2024 7:27 AM 11/22/2024 8:58 PM * Full Code Date Activated Date Inactivated Comments 08/28/2024 6:35 AM 08/29/2024 9:01 PM * Full Code Date Activated Date Inactivated Comments 09/03/2019 11:07 PM 09/04/2019 6:57 PM * Full Code Date Activated Date Inactivated Comments 07/23/2018 10:39 PM 07/24/2018 7:45 PM Care Teams Erp Engineer Relationship Specialty Start Date End Date David Coppola MD PCP - General Family Medicine 10/29/17 Jacob Suarez MD Referring Physician Nephrology 12/20/18 Ros Seay MD [facility] Feeder Cardiology 03/05/19 Abdifatah Villa MD [address] [facility] [address] [place] [address] Consulting Physician Cardiology 09/01/20 Issa Clements MD [address] [facility] [address] [place] [address] Referring Physician General Surgery 09/01/20
--- OUTSIDE RECORDS SUMMARY | 2024-12-04 01:00 | XMS_ITS | CONTINUITY OF CARE DOCUMENT ---
Author Name narakana narakana Address Unknown Organization [facility] Address [address] [place] [address] Phone [phone] Care Team Providers Care Life Sciences Teacher Name Role Phone Herbert Weller MD Unavailable [...] In-person encounter Office Visit Herbert Weller MD [place] [facility] EKGFamily History of Hypertension:Family History of Hypertension:PVDHypox iaHypertensionAtrial fibrillation VITAL SIGNS Date Observation Value Provider Body Mass Index (Ratio) 28.00 kg/m2 Sylvie Weller MD blood pressure, diastolic 52 mm[Hg] To reshma Negro blood pressure, systolic 81 mm[Hg] Ton jair Negro pulse rate 40 /min Anupama Negro oxygen saturation, oximetry 88 % Anupama Negro respiratory rate E&M 16 /min [facility] blood pressure, resting Yes [facility] height E&M 58 [in_i] [facility] weight E&M 134 [lb_av] [facility] temperature site temporal Shea Tank sley [...] required Harry Neal smoking status [facility] Family Member Condition Father Family History of Co ngestive Heart Failure: Father Family History of Hy pertension: Mother Family History of Hy pertension: Mother Family History of Di abetes: Mother Family History of De pression: INSURANCE PROVIDERS Payer name Policy type / Coverage type [place] red democrat [employer] Medicaid 3 [id number] [facility] MEDICARE COMPLETE HMO Other [id number] ADVANCE DIRECTIVES Name Date DISCUSSED - [...]
--- OUTSIDE RECORDS SUMMARY | 2024-12-04 01:00 | XMS_ITS | Encounter Summary ---
Author Organization [facility] Address [address] 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 Name Role Phone David Coppola MD Primary Care Provider + [phone] David Coppola MD Primary Care Provider + [phone] David Coppola MD Unavailable [phone] David Coppola MD Unavailable [phone] Virginie Corea RN Unavailable [phone] Encounter Details Date Type Department Care Team (Late Contact Info) Description 02/08/2015 [facility] Outpatient Visit EXTERNAL NON-[facility] DEPT David Buitrago MD [address] [place] [address] [address] [place] [phone] Social History Tobacco Use Types Packs/Day Years Used Date Smoking Tobacco: Never Alcohol Use Standard Drinks/Week Comments No 0 (1 standard drink = 0.6 oz pur e alcohol) Comments Unknown Sex and Gender Information Value Date Recorded Sex Assigned at Not on file 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 Gender Identity Not on file Sexual Orientation Not on file documented as of this encounter Plan of Treatment Upcoming Encounters Date Type Department Care Team (Late Contact Info) Description 03/10/2025 11:00 AM CDT Appointment [facility] Health Vascular Services [id number] [place] [address], [address] [place] [address] [place] [address] [address] [place] [address] [place] [address] [facility] [address] [place] [address] Cristo Fontenot MD [address] [place] [address] 03/17/2025 1:00 PM CDT Procedure visit [facility] [address] [place] [address], [place] [phone] 03/17/2025 1:30 PM CDT Office Visit [facility] [address] [place] [phone] Avis Dumont, SPRAY CEMENTER-CLINICAL PRACTITIONER [address] [place] [address] [place] [phone] documented as of this encounter Visit Diagnoses Not on filedocumented in this encounter Care Teams Caramel Cutter Helper Relationship Specialty Start Date End Date David Coppola MD [address] [place] [phone] PCP - General Family Medicine 02/08/15 08/14/16 David Coppola MD [address] [place] [phone] PCP - General 08/15/16 David Coppola MD [address] [place] [phone] Family Medicine 02/08/15 David Coppola MD [address] [place] [phone] Family Medicine 08/15/16 Virginie Corea, ABENA Permastone Mechanic 02/23/15 documented as of this encounter
--- OUTSIDE RECORDS SUMMARY | 2024-12-04 01:00 | XMS_ITS | Data Portability ---
Author Organization [employer] [facility], Main Office Address [address] [place] [id number] Care Team Providers Care Voice Studies Director Name Role Phone P [facility] FAX OTHER NOY [place] Primary Care Provider Assessment Encounter Date Assessment Date Assessment [...] By Organization Details Last Modified Time 08/19/2024 [id number] I spent 33 minutes providing care to the patient today. More than 50% of that time was spent in discussing the expected course of the disease, discussing prognosis, coordinating care and counseling of the patient/family. Not available 08/19/2024 13:14:05 08/26/2024 [id number] I spent 36 minutes providing care to the patient today. More than 50% of that time was spent in discussing the expected course of the disease, discussing prognosis, coordinating care and counseling of the patient/family. Not available 08/26/2024 11:29:08 09/01/2024 [id number] I spent 48 minutes providing care to the patient today. More than 50% of that time was spent in discussing the expected course of the disease, discussing prognosis, coordinating care and counseling of the patient/family. [email or web address] Not available 09/01/2024 14:02:49 09/02/2024 [id number] I spent 16 minutes counseling and discussing advance directives and/or end of life care planning and decisions with the patient and surrogate today. I reviewed the current relevant diagnoses, treatment options, natural history, and prognosis and clarified the patient's goals of care. code status is full [email or web address] Not available 09/04/2024 06:19:59 09/08/2024 [id number] I spent 40 minutes providing care to the patient today. More than 50% of that time was spent in discussing the expected course of the disease, discussing prognosis, coordinating care and counseling of the patient/family. The patient will be discharged home with home health orders of home health RN / PT / OT to evaluate and treat. The patient is homebound because of fall risk and is unable to leave home safely because requires considerable and taxing effort to leave home. The patient requires home health nursing for [...] atrial [place] [address] [facility], [place], [address], [facility] 09/01/2024 13:34:59 07/09/19 18 fluoroscopy guided percutaneous transluminal angioplasty of anterior tibial artery [place] [address] [place], [address], [facility] 09/01/2024 13:35:38 amputation of toe completed Alena Ding DO [id number] [place] [address], [address], [facility] 08/19/2024 05:12:33 cardiac ablation for atrial [place] [address] [place], [address], [facility] 09/01/2024 13:34:55 [place] [address] [facility], [place], [address], [facility] 09/01/2024 13:35:27 angioplasty of blood [place] [address] [place], [address], [facility] 09/01/2024 13:42:18 Imaging Results None recorded. Procedure Notes None recorded. Medical Equipment None Reported. Allergies Allergen ID Allergen Name Allergen Category Reaction Reaction Severity Criticality Documentation Date Start Date Code Code System Note Provider Name and Address Organization Details Recorded Time 24911 cefazolin medicatio n Not available Not available Not available 08/16/2024 2180 [place], [facility] 5 06:16:17 78213 enalapril Not available Not available Not available Not available 08/16/2024 3827 RxNorm [place], [facility] 5 06:16:26 85989 pioglitaz one medicatio n Not available Not available Not available 08/16/2024 12763 RxNorm [place], [facility] 5 06:16:35 25751 tramadol medicatio n Not available Not available Not available 08/16/2024 40929 RxNorm Yfn [place] null, [place] - [facility] 5 06:16:45 82671 cephalexi n medicatio n Not available Not available Not available 08/17/2024 2231 RxNorm [place], [place] - [facility] 5 21:18:22 60828 gabapenti n medicatio n Not available Not available Not available 08/17/2024 44117 RxNorm [place], [place] - [facility] [...] every day by oral route as needed. 02/24/ 2025 active Not Available Not Available Not Avai [...] in Arterial blood by Pulse oximetry Systolic And Diastolic Provider Name and Address Organization Details Last Updated DateTime 5 152.4 cm 81 /min 97.8 [degF] 19 /min 96 % 96 % 103/43 mm[Hg] Florencia Ceron, NIKO [address] [place], [address], [place] - [facility] 5 12:48:20 Date Recorded Body height Heart rate Body temperature Respiratory rate Oxygen saturation Oxygen saturation in Arterial blood by Pulse oximetry Body mass index (BMI) Body weight Systolic And Diastolic Provider Name and Address Organization Details Last Updated DateTime 5 152.4 cm 65 /min 98.5 [degF] 20 /min 97 % 97 % 22.7 kg/m2 29307.1 5 g 134/53 mm[Hg] [place] [address] [place], [address], [place] [employer] 5 10:44:20 Date Recorded Body height Heart rate Body temperature Respiratory rate Oxygen saturation Oxygen saturation in Arterial blood by Pulse oximetry Body mass index (BMI) Body weight Systolic And Diastolic Provider Name and Address Organization Details Last Updated DateTime 5 152.4 cm 75 /min 97.8 [degF] 18 /min 90 % 90 % 22.3 kg/m2 27269.5 3 g 144/57 mm[Hg] [place] [address] [place], [address], [place] [employer] [facility] 5 12:48:29 Date Recorded Body height Heart rate Body temperature Respiratory rate Oxygen saturation Oxygen saturation in Arterial blood by Pulse oximetry Body mass index (BMI) Body weight Systolic And Diastolic Provider Name and Address Organization Details Last Updated DateTime 5 152.4 cm 69 /min 98.4 [degF] 18 /min 94 % 94 % 22.3 kg/m2 68123.5 3 g 122/40 mm[Hg] [place] [address] [place], [address], [place] [employer] [facility] 5 06:10:21 Date Recorded Body height Heart rate Body temperature Respiratory rate Oxygen saturation Oxygen saturation in Arterial blood by Pulse oximetry Body mass index (BMI) Body weight Systolic And Diastolic Provider Name and Address Organization Details Last Updated DateTime 5 152.4 cm 78 /min 98.5 [degF] 18 /min 93 % 93 % 22.4 kg/m2 61648.6 9 g 156/76 mm[Hg] [place] [address] [place], [address], [place] - [facility] 15:15:43 Social History Question Answer Notes LastModified by Organizat ion Details LastModified Time Tobacco Smoking Status [place] [address] [place], [address], [facility] [place] [facility] 09/04/2024 05:14:35 What Is Your Code Status? Full Code [email or web address] Information not available 08/17/2024 Sex: Unknown Functional Status Question Answer Note LastModified by Organizat ion Details LastModified Time Do you use any [...] available 2024 05:13:43 Medical History Condition Response Atrial Fibrillation Y End Stage Renal Disease (ESRD) Y Chronic Kidney Disease (CKD) Y Anemia Y Constipation Y Vitamin B12 Deficiency Y Peripheral Vascular Disease (PVD) Y Diabetes Y Osteoporosis / Osteopenia Y Hyperlipidemia Y Orthostatic Hypotension Y Gynecological HistoryNo gynecological history recorded. Obstetrics History GPAL:G 0 P 0 0 0 0 Past Encounters Encounter ID Performer Location Encounter Start Date Encounter Closed Date Diagnosis/Indication Diagnosis SNOMED-CT Code Diagnosis ICD10 Code Diagnosis Note [id number] Alena Ding [place] [address] [place] [address] 08/17/2024 18:45:13 09/01/2024 12:09:56 Respiratory syncytial virus infection 07607922 B97.4 treated with a prednisone taper, duonebs, decongesta nts during her hospitaliz ationrespi ratory symptoms are now resolved and supportive meds have been discontinu edO2 has been weanedmoni tor clinically Pneumonia 563885035 J18. 9 She was treated with Levaquin and flagyl during her hospitaliz ationOf note, amoxicilli n was ordered per hospital discharge orders which was an error per Dr. Rosario the dischargin g hospitalis tO2 has been weaned and will monitor for continued need End stage renal failure on dialysis 173278621 N18.6 continue HD at [facility] in [place] M/W/FNephr ologist is Daniela Hyperlipidemia 01684591 E78.5 presumed stable - continue statin therapy Peptic ulcer 68661353 K2 7.9 history of GI bleed 2017 [...] and PUD Acute hypo xemic respiratory failure 417398570 J96.01 related to above as well as volume overloadSh e required supplement al O2 and intermitte nt bipap while hospitaliz ed - both are now weaned and respirator y status appears stable - monitor clinically Diabetes mellitus 606826 09 E11.51 HbA1c during her hospitaliz ation was 7.1 (per physician progress note dated 08/11/24)She was treated with only SSI while hospitaliz edresumed tresiba and Victoza last evening, continue daily Januvia as wellwill trend accuchecks and add SSI if needed while here Deep tissu e pressure injury 243950153 T14.8XXA noted to the right lateral heel on admission to last eveninghee l protectors , skin prep daily, offload pressure and monitor closelyper nursing, she also has some superficia l wounds to the buttocks - SWM will be consulted and follow while here Major depr essive disorder 170090758 F32.9 continue trazodonev enlafaxine is noted on inpatient medication list but not continued on discharge - will need to clarify these meds with PCP Vitamin deficiency 29859 002 E56.9 continue Vitamin D and B12 replacemen t Irritable bowel syndrome 48211347 K58.9 continue prn dicyclomin e Peripheral vascular disease 181531560 I73.9 she has previously required toe amputation [...] Gi bleeding/P UD Hypertensi ve renal disease 99242820 I12.9 continue coregtrend pressures/ adjust meds as clinically indicated Physical deconditioning 8022217089 9102 R68.89 related to advanced age, comorbidit ies and recent RSV infection/ pneumoniat herapies will be initiated - she will return home with her children upon d/c from [id number] Alena Ding DO [address] [address] 08/19/2024 10:06:34 09/01/2024 11:41:20 Respiratory syncytial virus infection 03732675 B97.4 Treated with a prednisone taper, duonebs, and decongesta nts during her hospitaliz ation.Resp iratory symptoms are now resolved and supportive meds have been discontinu ed.O2 has been weaned.Mon itor clinically . Pneumonia 651398814 J18. 9 She was treated with Levaquin and Flagyl during her hospitaliz ation.Of note, Amoxicilli n was ordered per hospital discharge orders which was an error per Dr. Rosario the dischargin g hospitalis t.O2 has been weaned and will monitor for continued need. Acute hypo xemic respiratory failure 279587003 J96.01 Related to above as well, as volume overload.S he required supplement al O2 and intermitte nt bipap while hospitaliz ed -- both are now weaned and respirator y status appears stable. Monitor clinically . End stage renal failure on dialysis 886868810 N18.6 [facility] Nephrolog[facility] st Dr. Suarez as directed. Hyperlipidemia 88697467 E78.5 Presumed stable. Continue statin. Peptic ulcer 43198207 K2 7.9 History of GI bleed 2017 [...] of GI bleeding and PUD. Diabetes mellitus 037469 09 E11.51 HbA1c during her hospitaliz ation was 7.1% (per physician progress note dated 08/11/24).Marina borrero was treated with only SSI while hospitaliz ed.Resumed Tresiba, Victoza, and Januvia upon arrival here.Trend accuchecks and add SSI if needed while here.Famil y is to bring in home medication list for reconcilia tion. Deep tissu e pressure injury 919631932 T14.8XXA Noted to the right lateral heel on admission to .Continu e heel protectors , skin prep , offload pressure, and monitor closely.Pe r nursing, she also has some superficia l wounds to the buttocks.S WM consulted and follow while here. Major depr essive disorder 722775043 F32.9 Stable. Continue Trazodone. Venlafaxin e is noted on inpatient medication list but not continued on discharge. Caregiver has been in contact with pt's daughter, who will bring home med list in for our reconcilia tion. Vitamin deficiency 92595 002 E56.9 Presumed stable. Continue Vitamin D, Calcium, and B12 replacemen t. Irritable bowel syndrome 64966276 K58.9 with chronic diarrhea per pt. Continue PRN Dicyclomin e.Actually constipate d at present. Add Colace daily. Peripheral vascular disease 979786552 I73.9 Previously required toe amputation s to the bilateral feet and angioplast y to the LLE.Follow s routinely with podiatry. Does not follow regularly with vascular at this point.Cont inue to monitor LE closely.Co ntinue statin and good blood pressure control.Marina borrero does not take oral AC or antiplatel et meds due to GI bleeding/P UD. Hypertensi ve renal disease 25408799 I12.9 Stable. Continue Coreg.Cont inue to trend blood pressures, monitor lytes and renal function, and adjust meds as clinically indicated. Physical deconditioning 1991188400 9102 R68.89 Related to advanced age, comorbidit ies and recent RSV infection/ pneumonia. Therapies will be initiated. She will return home with her children upon d/c from . Candidiasis of skin 4988 3006 B37.2 Stable. Continue Clotrimazo le cream. [id number] Alena Ding, DO [address] [address] 08/26/2024 08:27:00 09/01/2024 11:42:01 End stage renal failure on dialysis 527090394 N18.6 Continue HD at [facility] on M/W/F.Cont inue [facility]. F/U with Nephrologi st Dr. Suarez as directed. Hypertensi ve renal disease 86383593 I12.9 Stable. Continue Coreg.Cont inue to trend blood pressures, monitor lytes and renal function, and adjust meds as clinically indicated. Hyperlipidemia 16962099 E78.5 Presumed stable. Continue statin. Atrial fibrillation 4943 6004 I48.91 Previously had a watchman procedure - sounds as though she remains in afib at this time.Stabl e. Continue Coreg for rate control.Marina borrero is NOT on oral anticoagul ation due to history of GI bleeding and PUD. Diabetes mellitus 912723 09 E11.51 HbA1c during her hospitaliz ation was 7.1% (per physician progress note dated 08/11/24).Marina borrero was treated with only SSI while hospitaliz ed.Resumed Tresiba, Victoza, and Januvia upon arrival here. Does continue on SSI. Peripheral vascular disease 024633493 I73.9 Previously required toe amputation s to the bilateral feet and angioplast y to the LLE.Follow s routinely with podiatry. Does not follow regularly with vascular at this point.Cont inue to monitor LE closely.Co ntinue statin and good blood pressure control.Marina borrero does not take oral AC or antiplatel et meds due to GI bleeding/P UD. Deep tissu e pressure injury 557847074 T14.8XXA Noted to the right lateral heel on admission to .Continu e heel protectors , offload pressure, and monitor closely.Cu rrently treating with skin prep.SWM consulted and follow while here. Peptic ulcer 51204526 K2 7.9 History of GI bleed 2017 related to NSAIDS and OAC.She continues on high dose PPI therapy. e reports she has frequent nausea and vomiting. None since last visit. Continue PRN Zofran. Irritable bowel syndrome 65609556 K58.9 with chronic diarrhea per pt. Continue PRN Dicyclomin e.Actually constipate d at present. Add Colace daily. Major depr essive disorder 099661700 F32.9 Venlafaxin e is noted on inpatient medication list but not continued on discharge. Continues on Trazodone alone.certified caregiver has been in contact with pt's daughter, who will bring home med list in for our reconcilia tion. Vitamin deficiency 34438 002 E56.9 Presumed stable. Continue Vitamin D, Calcium, and B12 replacemen t. Respirator y syncytial virus infection 61514234 B97.4 Treated with a prednisone taper, duonebs, and decongesta nts during her hospitaliz ation.Resp iratory symptoms are now resolved and supportive meds have been discontinu ed.O2 has been weaned.Reji ramirez clinically . Pneumonia 647950271 J18. 9 She was treated with Levaquin and Flagyl during her hospitaliz ation.Of note, Amoxicilli n was ordered per hospital discharge orders which was an error per Dr. Rosario the dischargin g hospitalis t.O2 has been weaned and will monitor for continued need. Acute hypo xemic respiratory failure 180801479 J96.01 Related to above as well, as volume overload.S he required supplement al O2 and intermitte nt bipap while hospitaliz ed -- both are now weaned and respirator y status appears stable. Monitor clinically . Physical deconditioning 6064558456 9102 R68.89 Related to advanced age, comorbidit ies and recent RSV infection/ pneumonia. Therapies will be initiated. She will return home with her children upon d/c from [place]. Candidiasis of skin 4988 3006 B37.2 Stable. Continue Clotrimazo le cream. Hemorrhoids 68967598 K64 .9 Improved since addition of Colace.Add PRN Preparatio n H. Insomnia 092471763 G47.0 0 Pt takes Trazodone as OP. Confirmed today dose is 100 mg qhs.Add PRN Melatonin. 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 She has roho w/c pad and air mattress.S WM is following weekly. [id number] Alena Ding, [place] [address] [place] [address] 09/01/2024 12:41:19 09/15/2024 21:18:48 Peripheral arterial occlusive disease 897133889 I73.9 Previously required toe amputation s to the bilateral feet and angioplast y to the LLE.On 08/28/24 = S/P balloon angioplast y of [R] anterior and posterior tibial, peroneal, and lateral plantar arteries per Dr. Boo without postoperat geln complicati ons.Contin ue dry dressing daily until healed.Con tinues on baby ASA daily & Plavix (new). Monitor for bleeding given hx of PUD with GIB while on Plavix previously . Continue high-dose PPI.Contin ue statin and good blood pressure control.Co ntinue to monitor LE closely.Sh e will f/u with vascular on 11/11.Also follows routinely with podiatry. End stage renal failure on dialysis 903070475 N18.6 Continue HD at [facility] in [place] on //.Cont inue [facility]. F/U with Nephrologi st Dr. Suarez as directed. Hypertensi ve renal disease 18679635 I12.9 Stable. Continue Coreg.Cont inue to trend blood pressures, monitor lytes and renal function, and adjust meds as clinically indicated. F/U with Dr. Noy Rodriguez on 11/11. Hyperlipidemia 55101036 E78.5 Presumed stable. Continue statin. Atrial fibrillation 4943 6004 I48.91 Previously had a watchman procedure - sounds as though she remains in afib at this time.Stabl e. Continue Coreg for rate control.On baby ASA & Plavix, no stronger OAC due to hx of GIB.F/U with Dr. Noy Rodriguez on 11/11. Diabetes mellitus 687786 09 E11.51 HbA1c during her hospitaliz ation was 7.1% (per physician progress note dated 08/11/24).Sh gissell was treated with only SSI while hospitaliz ed.Resumed Tresiba, Victoza, and Januvia upon arrival here.SSI has been stopped.Mo nitor blood sugars and encourage LCS diet. Deep tissu e pressure injury 177775986 T14.8XXA Noted to the right lateral heel on admission to .Continu e heel protectors , offload pressure, and monitor closely.Cu rrently treating with skin prep.SWM consulted and following while here.Azalia cox underwent balloon angioplast y of this extremity as above. 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 She has roho w/c pad and air mattress.S WM is following weekly. Peptic ulcer 91637927 K2 7.9 History of GI bleed 2017 related to NSAIDS and OAC.She continues on high dose PPI therapy.Marina borrero reports she has frequent nausea and vomiting. None since last visit. Continue PRN Zofran. Irritable bowel syndrome 30681005 K58.9 with chronic diarrhea per pt. Continue PRN Dicyclomin e.Stable. Continue Senna Plus. Hemorrhoids 25039322 K64 .9 Improved since addition of Colace.Con tinue PRN Preparatio n H. Major depr essive disorder 823394281 F32.9 Venlafaxin e is noted on inpatient medication list but not continued on discharge. Stable. Continues on Trazodone for insomnia, but otherwise not on medication . Insomnia 423315018 G47.0 0 Pt takes Trazodone as OP. Confirmed with PCP dose is 100 mg qhs.Contin ue PRN Melatonin, as well. Vitamin deficiency 11037 002 E56.9 Presumed stable. Continue Vitamin D, Calcium, and B12 replacemen t. Candidiasis of skin 4988 3006 B37.2 Stable. Continue Clotrimazo le cream. Respirator y syncytial virus infection 48551404 B97.4 Treated with a prednisone taper, duonebs, and decongesta nts during her hospitaliz ation.Resp iratory symptoms are now resolved and supportive meds have been discontinu ed.O2 has been weaned.Reji ramirez clinically . Pneumonia 598438044 J18. 9 She was treated with Levaquin and Flagyl during her hospitaliz ation.Of note, Amoxicilli n was ordered per hospital discharge orders which was an error per Dr. Rosario the dischargin g hospitalis t.O2 has been weaned and will monitor for continued need. Acute hypo xemic respiratory failure 535572420 J96.01 Related to above as well, as volume overload.S he required supplement al O2 and intermitte nt bipap while hospitaliz ed -- both are now weaned and respirator y status appears stable. Monitor clinically . Physical deconditioning 4224860340 9102 R68.89 Related to advanced age, comorbidit ies and recent RSV infection/ pneumonia. Therapies will be initiated. She will return home with her children upon d/c from . [id number] Alena Ding, [address] [address] 09/02/2024 06:08:21 09/15/2024 21:16:53 Peripheral arterial occlusive disease 330629940 I73.9 Previously required toe amputation s to [...] podiatry. End stage renal failure on dialysis 720470629 N18.6 Continue HD at [facility] in [place] on // - daughter is hopeful to get the patient moved back to the [facility] location - unclear on issues regarding Hep B testing/co ncerns as this is not documented per available hospital recordsCon cirilo Hutchison. F/U with Nephrologi st Dr. Suarez as directed. Hypertensi ve renal disease 38367643 I12.9 Stable. Continue Coreg.Cont inue to trend blood pressures, monitor lytes and renal function, and adjust meds as clinically indicated. F/U with Dr. Noy Rodriguez on 11/11. Hyperlipidemia 70995148 E78.5 Presumed stable. Continue statin. Atrial fibrillation 4943 6004 I48.91 Previously had a watchman procedure - sounds as though she remains in afib at this time.Stabl e. Continue Coreg for rate control.On baby ASA & Plavix, no stronger OAC due to hx of GIB.F/U with Dr. Noy Rodriguez on 11/11. Diabetes mellitus 566598 09 E11.51 HbA1c during her hospitaliz ation was 7.1% (per physician progress note dated 08/11/24).Marina borrero was treated with only SSI while hospitaliz ed.Resumed Tresiba, Victoza, and Januvia upon arrival here.SSI has been stopped.Mo nitor blood sugars and encourage LCS diet. Deep tissu e pressure injury 972127588 T14.8XXA Noted to the right lateral heel on admission to .Continu e heel protectors , offload pressure, and monitor closely.Cu rrently treating with skin prep.SWM consulted and following while here.Azalia cox underwent balloon angioplast y of this extremity as above. 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 She has roho w/c pad and air mattress.S WM is following weekly. Peptic ulcer 69820686 K2 7.9 History of GI bleed 2017 related to NSAIDS and OAC.She continues on high dose PPI therapy. gissell reports she has frequent nausea and vomiting. Continue PRN Zofran and monitor closely in light of starting antiplatel et therapy Irritable bowel syndrome 36788223 K58.9 with chronic diarrhea per pt. Continue PRN Dicyclomin e.Stable. Continue Senna Plus and prn miralax for constipati on Hemorrhoids 69136225 K64 .9 continue cathartics Continue PRN Preparatio n H. Major depr essive disorder 122262658 F32.9 Venlafaxin e is noted on inpatient medication list but was not continued on recent hospital discharge. Mood is stable. Continues on Trazodone for insomnia, but otherwise not on medication . Insomnia 713302026 G47.0 0 Pt takes Trazodone as OP. Confirmed with PCP dose is 100 mg qhs.Contin ue PRN Melatonin, as well. Vitamin deficiency 45412 002 E56.9 Presumed stable. Continue Vitamin D, Calcium, and B12 replacemen t. Candidiasis of skin 4988 3006 B37.2 Stable. Continue Clotrimazo le cream. Respirator y syncytial virus infection 90403502 B97.4 Treated with a prednisone taper, duonebs, and decongesta nts during her hospitaliz ation.Resp iratory symptoms are now resolved and supportive meds have been discontinu ed.O2 has been weaned.Mon itor clinically . Pneumonia 382847319 J18. 9 She was treated with Levaquin and Flagyl during her hospitaliz ation.Of note, Amoxicilli n was ordered per hospital discharge orders which was an error per Dr. Rosario the dischargin g hospitalis t.O2 has been weaned and will monitor for continued need. Acute hypo xemic respiratory failure 987987488 J96.01 Related to above as well, as volume overload.S he required supplement al O2 and intermitte nt bipap while hospitaliz ed -- both are now weaned and respirator y status appears stable. Monitor clinically . Physical deconditioning 0457180489 9102 R68.89 Related to advanced age, comorbidit ies and recent RSV infection/ pneumonia. Therapies will be initiated. She will return home with her children upon d/c from . [id number] Alena Ding, [address] [address] 09/08/2024 13:34:43 09/15/2024 21:17:41 Peripheral arterial occlusive disease 818818644 I73.9 Previously required toe amputation s to [...] blood pressure control.Co ntinue to monitor LE closely.Marina borrero will f/u with vascular on lso follows routinely with podiatry. End stage renal failure on dialysis 280561178 N18.6 Continue HD at [facility] in [place] on // - daughter is hopeful to get the patient moved back to the [facility] location - unclear on issues regarding Hep B testing/co ncerns as this is not documented per available hospital recordsCon cirilo Hutchison. F/U with Nephrologi st Dr. Suarez as directed. Hypertensi ve renal disease 05153984 I12.9 Stable. Continue Coreg.Cont inue to trend blood pressures, monitor lytes and renal function, and adjust meds as clinically indicated. F/U with Dr. Noy Rodriguez on 11/11. Hyperlipidemia 82652259 E78.5 Presumed stable. Continue statin. Atrial fibrillation 4943 6004 I48.91 Previously had a watchman procedure - sounds as though she remains in afib at this time.Stabl e. Continue Coreg for rate control.On baby ASA & Plavix, no stronger OAC due to hx of GIB.F/U with Dr. Noy Rodriguez on 11/11. Diabetes mellitus 443934 09 E11.51 HbA1c during her hospitaliz ation was 7.1% (per physician progress note dated 08/11/24).Marina borrero was treated with only SSI while hospitaliz ed.Resumed Tresiba, Victoza, and Januvia upon arrival here.SSI has been stopped.Mo nitor blood sugars and encourage LCS diet. Deep tissu e pressure injury 073822037 T14.8XXA Noted to the right lateral heel on admission to .Continu e heel protectors , offload pressure, and monitor closely.Cu rrently treating with skin prep.SWM consulted and following while here.Recen tly underwent balloon angioplast y of this extremity as above. Pressure i njury of sacral region of back stage III [id number] 5109 L89.153 Small areas to bilateral buttocks and coccyx.Con tinue santyl & calcium alginate daily.Cont inue to offload pressure. She has roho w/c pad and air mattress.S WM is following weekly. Peptic ulcer 53559924 K2 7.9 History of GI bleed 2017 related to NSAIDS and OAC.She continues on high dose PPI therapy.Sh e reports she has frequent nausea and vomiting. Continue PRN Zofran and monitor closely in light of starting antiplatel et therapy Irritable bowel syndrome 51041160 K58.9 with chronic diarrhea per pt. Continue PRN Dicyclomin e.Stable. Continue Senna Plus and prn miralax for constipati on Hemorrhoids 26593489 K64 .9 continue cathartics Continue PRN Preparatio n H. Major depr essive disorder 467978913 F32.9 Venlafaxin e is noted on inpatient medication list but was not continued on recent hospital discharge. Mood is stable. Continues on Trazodone for insomnia, but otherwise not on medication . Insomnia 678271566 G47.0 0 Pt takes Trazodone as OP. Confirmed with PCP dose is 100 mg qhs.Contin ue PRN Melatonin, as well. Vitamin deficiency 49432 002 E56.9 Presumed stable. Continue Vitamin D, Calcium, and B12 replacemen t. Candidiasis of skin 4988 3006 B37.2 Stable. Continue Clotrimazo le cream. Respirator y syncytial virus infection 89423853 B97.4 Treated with a prednisone taper, duonebs, and decongesta nts during her hospitaliz ation.Resp iratory symptoms are now resolved and supportive meds have been discontinu ed.O2 has been weaned.Reji ramirez clinically . Pneumonia 570849877 J18. 9 She was treated with Levaquin and Flagyl during her hospitaliz ation.Of note, Amoxicilli n was ordered per hospital discharge orders which was an error per Dr. Roasrio the dischargin g hospitalis t.O2 has been weaned and will monitor for continued need. Acute hypo xemic respiratory failure 602928072 J96.01 Related to above as well, as [...] Garay Member ID Guarantor Name 08/19/2024 1 [employer] (MEDICARE REPLACEMENT/A DVANTAGE - PPO) [id number] Shasta Carrillo [id number] Shasta Obando 08/26/[address] [facility] (MEDICARE REPLACEMENT/A DVANTAGE - PPO) [id number] Shasta Carrillo [id number] Shasta Obando 09/01/[address] [facility] (MEDICARE REPLACEMENT/A DVANTAGE - PPO) [id number] Shasta Meehanan [id number] Shasta Obando 09/02/[address] [facility] (MEDICARE REPLACEMENT/A DVANTAGE - PPO) [id number] Shasta Carrillo [id number] Shasta Obando 09/08/[address] [facility] (MEDICARE REPLACEMENT/A DVANTAGE - PPO) [id number] Shasta Meehanan [id number] Shasta Obando Notes Date Note Type Note Provider [...] her 3 children in a home in [place]. MOD IND with mobility and ADLS at [...] to run high at times. Florencia Ceron, [address] [address] [place], [address], [facility] 08/19/2024 13:16:09 5 text/html F/U RSV, pneumonia, acute hypoxemic & hypercapnic respiratory failure, ESRD on HD, weakness, and chronic medical conditions.---08/17/24e patient is a fairly good historian. She [...] her 3 children in a home in [place]. MOD IND with mobility and ADLS at [...] Branden of 1 cues . Standing at [facility] Florencia Ceron, [address] [address] [place], [address], [place] [facility] 08/26/2024 11:29:26 5 text/html F/U PAD s/p balloon angioplasty [...] her 3 children in a home in [place]. MOD IND with mobility and ADLS at [...] taking [address] tablets [address] confirm with [address] Mulligan's office that this is the correct dosage. She otherwise is without concerns. VSS. Staff is without concerns, as well. Per therapy notes: Conducted gait training with Rollator ~40' CGA cues for turns. sit/stand Branden of 1 cues . Standing at [facility] CGA---09/01/24Pt was at [facility] from 08/28 to 08/29/24 balloon angioplasty of RLE (anterior tibial, posterior tibial, and lateral plantar arteries. Improved blood flow through peroneal artery with persistent occlusion in distal peroneal artery where there is retrograde filling of peroneal from AT collaterals). Was kept overnight for observation, no reported complications. Only new medication was addition of Plavix 75 mg daily. She will f/u with vascular on 11/11.Per discharge summary:Presenting Problem/History of Present Illness:Shasta Obando is a [...] fistula (has required multiple dilations last at [facility] 07/2024. Renal consulted and patient received HD prior to discharge.Referral for outpatient sleep study per patient family member request. All other chronic medical conditions were stable during admission and no changes made to patients previous home medications.Shasta is seated in her w/c in her room, without concerns or pain to report today. She is heading to dialysis shortly. Her caregiver is at her side. She reports her recent procedure went very well without concerns, although she does note trace edema to her [R] ankle since the procedure. Otherwise perfusion appears normal. VSS. Staff is without concerns today. Florencia Ceron, NUCLEAR MEDICINE SPECIALIST [address] [facility], [place], [address], [facility] 09/01/2024 14:03:56 5 text/html F/U with the patient today after recent balloon angioplasty of the RLE with overnight admission to [facility] 08/28/2024.---08/17/24 patient is a fairly good historian. [...] her 3 children in a home in [place]. MOD IND with mobility and ADLS at [...] of 1 cues . Standing at Rollator CGA---09/01/2024Shasta is seated in her w/c in her room, without concerns or pain to report today. She is heading to dialysis shortly. Her caregiver is at her side. She reports her recent procedure went very well without concerns, although she does note trace edema to her [R] ankle since the procedure. Otherwise perfusion appears normal. VSS. Staff is without concerns today.---09/02/2024Pt was at [facility] from 08/28 to 08/29/24 for balloon angioplasty [...] with the patient or family while at [facility]. The daughter is also trying to get her dialysis moved back to [place] - Shasta was transferred to the [facility] in [place] in May 2024 due to testing positive for Hepatitis B although the daughter reports the validity of this positive test has been disputed by GI and ID as repeat testing has been negative. Shasta denies new complaints or concerns today - specifically no GI symptoms. Her RLE remains a bit swollen since the vascular procedure. [place] [address] [place], [address], [facility] 09/04/2024 06:20:52 5 text/html 79 Y/O female with a history of ESRD on HD x 13 years, IDDM, HTN, OA, PVD, PUD, atrial fibrillation and depression admitted to [facility] for post acute rehab subsequent to an inpatient stay at [facility] 08/01-08/16/2024 related to RSV and pneumonia. The patient presented to the ER with a 3 day history of SOB, cough and cold symptoms. She had been on amoxicillin prior to hospital admission related to her symptoms. Please note that there is very limited inpatient documentation sent with the patient from [facility] for review today. No admission H&P [...] and continued her usual HD schedule of //. Her hospitalization does not appear to have been further complicated. PCP Noy Carrascorology PurcellCarwhitney UppstromCode status is fullpharmacy julieta in [place]---08/17/24e patient is a fairly good historian. She [...] her 3 children in a home in [place]. MOD IND with mobility and ADLS at [...] blood sugars continue to run high at times.---08/25/24Shasat is in her w/c in the hallway, [...] of 1 cues . Standing at Rollator CGA---09/01/2024Shasta is seated in her w/c in her room, without concerns or pain to report today. She is heading to dialysis shortly. Her caregiver is at her side. She reports her recent procedure went very well without concerns, although she does note trace edema to her [R] ankle since the procedure. Otherwise perfusion appears normal. VSS. Staff is without concerns today.---09/02/2024William was at [facility] from 08/28 to 08/29/24 for balloon angioplasty [...] with the patient or family while at [facility]. The daughter is also trying to get her dialysis moved back to [place] - Shasta was transferred to the [facility] location in [place] in May 2024 due to testing positive [...] level appeal with determination pending. Florencia Ceron, [address] [address] [place], [address], [facility] 09/09/2024 08:55:38 OBGyn Episode No OBEpisode recorded.
--- OUTSIDE RECORDS SUMMARY | 2024-12-04 01:01 | XMS_ITS | Continuity of Care Document ---
Author Organization [place] [facility], [facility] Address [address] [place] [address] Care Team Providers Care Corn Detasseler Name Role Phone NOY PENN Primary Care Provider NOY PENN Referring Provider Assessment Encounter Date Assessment Date Assessment LastModified by Organization Details LastModified Time 12/03/2024 12/03/2024 This note is dictated and transcribed by [employer]. Bee Producer variances may occur. Despite proofreading, typographical errors may occur. Occasional wrong-word or '[id number]' substitutions may have occurred due to the inherent limitations of voice recording. Read the chart carefully and recognize, using context, where substitutions have occurred. 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 754601104 Active 2019 Not Available [facility] 3 01:04:36 Type 2 diabetes mellitus 22046479 Active 2019 Not Available [facility] 3 01:04:36 Long-term current use of anticoagul ant 109597364 Active 2018 Not Available [facility] 3 01:04:36 Diabetes mellitus 19112241 Active Not Available [facility] 3 01:04:36 Dystrophia unguium 51256338 Active 2023 Nir Boo DPM [address], [address], [place], [address] , [facility] 4 10:49:49 Peripheral arterial occlusive disease 450178295 Active 2023 Nir Boo DPM [address], [address], [place], [address] , [facility] 4 10:45:01 Pressure injury of heel 006473296 Active 2024 Nir Boo DPM [address], [address], [place], [address] , [facility] 5 17:15:17 Foot ulcer due to type 2 diabetes mellitus 9761311027686 Active 2024 Nir Boo DPM [address], [address], [place], [address] , [facility] 5 10:24:10 Problem Notes None recorded. Procedures Surgical History Date Name Laterality Status Provider Name and Address Organization Details Recorded Time 5 Wound Care-Podiatry completed Nir Boo DPM [address], [address], [place], [address], [facility] 12/03/2024 14:36:08 5 Wound Care-Podiatry completed Satya Hodges RN [place] [facility] [employer] 11/26/2024 13:08:11 5 Wound Care-Podiatry completed Theresa Hudson RN [facility] [employer] [facility] 11/17/2024 10:40:25 5 Wound Care-Podiatry completed Nir Boo DPM [address], [address], [place], [address], [facility] [employer] [facility] 11/12/2024 10:27:54 5 Wound Care-Podiatry completed Kierra Shaw [facility] [employer] [facility] 11/05/2024 09:58:53 5 Wound Care-Podiatry completed Theresa Hudson RN [facility] [employer] [facility] 10/29/2024 10:15:59 5 Wound Care-Podiatry completed Theresa Hudson RN [facility] [employer] [facility] 10/22/2024 14:11:35 5 Wound Care-Podiatry completed Theresa Hudson RN [facility] [employer] [facility] 10/22/2024 10:21:47 5 Nail Debridement completed Nir Boo DPM [address], [address], [place], [address], [facility] [employer] [facility] 08/21/2024 17:55:22 4 Nail Debridement completed Nir Boo DPM [address], [address], [place], [address], [facility] [employer] [facility] 03/20/2024 10:44:17 4 Plantar Fascia Injection Left Foot completed Nir Boo DPM [address], [address], [place], [address], [facility] 01/31/2024 10:17:02 4 Nail Debridement completed Nir Boo DPM [address], [address], [place], [address], [facility] 12/20/2023 10:08:42 4 Nail Debridement completed Nir Boo DPM [address], [place], [address], [place] [facility] 09/20/2023 13:30:21 Imaging Results None recorded. Procedure [...] Ultra-Fine Mini Pen Needle 31 gauge x 16 USE DIRECTED 09/19 completed Not Available Not [...] Recorded Body height Heart rate Body temperature Oxygen saturation Oxygen saturation in Arterial blood by Pulse oximetry Systolic blood pressure Diastolic blood pressure Provider Name and Address Organization Details Last Updated DateTime 5 142.24 cm 63 /min 98.2 [degF] 94 % 94 % 132 mm[Hg] 43 mm[Hg] Satya Hodges RN [place] [facility] 5 12:18:12 Social History None recorded. Functional Status None recorded. Mental Status None recorded. Family History Relationship Description Onset Age of this Age Resolved Age Notes LastModified by Organization Details LastModified Time Mother Diabetes mellitus [email or web address] Not available 01/07 09:54:09 Medical History Condition Response ARTHRITIS Y DIABETES, TYPE Y HYPERTENSION Y Gynecological HistoryNo gynecological history recorded. Obstetrics History GPAL:G 0 P 0 0 0 0 Past Encounters Encounter ID Performer Location Encounter Start Date Encounter Closed Date Diagnosis/Indication Diagnosis SNOMED-CT Code Diagnosis ICD10 Code Diagnosis Note [id number] [facility] [address] [place] [address] 11/05/2024 09:38:31 11/05/2024 13:43:50 Foot ulcer due to type 2 diabetes mellitus 3898479496 100 E11.621 right heeldaily dressings with offloading at all timesmonit or for signs of infection at present seek medical attention immediatel yObtain non-invasi ve vascular testingedu cated on [facility] [place] orderedfol low-up 1 week Peripheral arterial occlusive disease 908738954 I73.9 obtain Doppler and MELISSA- to ensure adequate wound healing [id number] [facility] [address] [place] [address] 11/12/2024 09:40:07 11/13/2024 10:37:23 Foot ulcer due to type 2 diabetes mellitus 1453604525 100 E11.621 right heeldaily dressings with offloading at all timesmonit or for signs of infection at present seek medical attention immediatel yObtain non-invasi ve vascular testingedu cated on [facility] [place] orderedfol low-up 1 week Peripheral arterial occlusive disease 543708270 I73.9 obtain Doppler and MELISSA- to ensure adequate wound healing [id number] [facility] [address] [place] [address] 11/17/2024 09:38:37 11/17/2024 16:59:15 [id number] [facility] [address] [place] [address] 11/26/2024 11:58:09 11/26/2024 16:02:40 Foot ulcer due to type 2 diabetes mellitus 5720590706 100 E11.621 right heeldaily dressings with offloading at all timesmonit or for signs of infection at present seek medical attention immediatel yObtain non-invasi ve vascular testingedu cated on [facility] [place] orderedfol low-up 1 week Peripheral arterial occlusive disease 059179329 I73.9 successful stenting with angio right leg last week [id number] Nir Boo DPM [facility] [address] [place] [address] 12/03/2024 11:43:09 12/03/2024 15:34:51 Foot ulcer due to type 2 diabetes mellitus 9367219704 100 E11.621 right heeldaily dressings with offloading at all timesmonit or for signs of infection at present seek medical attention immediatel yObtain non-invasi ve vascular testingedu cated on [facility] [employer] supplies orderedfol low-up 1 week Peripheral arterial occlusive disease 539352505 I73.9 successful stenting with angio right leg last week Health Concerns Section Related Observation LastModified by Organization Detai ls LastModified Time None Recorded Concern Status LastModified by Organization Details LastModified Time None Recorded Payers Encounter Date Sequence Insurance Name Policy Number Policy Garay Covered Member ID Garay Member ID Guarantor Name 12/03/2024 2 [place] Shasta Wheatley [id number] Shasta Wheatley 12/03/2024 1 [facility] (MEDICARE REPLACEMENT/A DVANTAGE - PPO) [id number] Shasta Wheatley [id number] Shasta Wheatley Notes Date Note Type Note Provider Name and Address Organization Details Recorded Time 12/03/2024 text/html . Patient is a 79-year-old female diabetic she has a continued wound to the right heel which is stable and healthy in nature. Patient underwent vascular angio and she overall has a healthy wound. Patient was educated again about the importance of offloading. Patient denies any other complaints. Nir Boo DPM [address] [facility], [facility] [address], [place], [address], [facility] 12/03/2024 14:37:39 OBGyn Episode No OBEpisode recorded.
--- OUTSIDE RECORDS SUMMARY | 2024-12-04 01:01 | XMS_ITS | Encounter Summary ---
Author Organization [facility] Healthcare Address [address] [place] [address] Care Team Providers Care Risk Control Representative Name Role Phone David Coppola MD Primary Care Provider [phone] Jacob Suarez MD Unavailable [phone] Marnie Lara RN Unavailable [phone] Ros Seay MD Unavailable [phone] Johana Edmond RN Unavailable Abdifatah Villa MD Unavailable Issa Clements MD Unavailable [phone] Encounter Details Date Type Department Care Team (Late st Contact Info) Description 12/11/2018 Orders Only [facility] Health Information Management [address] [place] [address] Scanning, Provider Social History Tobacco Use Types Packs/Day Years Used Date Smoking Tobacco: Never Smokeless Tobacco: Never Alcohol Use Standard Drinks/Week Comments No 0 (1 standard drink = 0.6 oz pur e alcohol) Comments No Sex and Gender Information Value Date Recorded Sex Assigned at Not on file Legal Sex Female 12:39 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 Gender Identity Not on file Sexual Orientation [...] Influenza, adult 09/04/2019 09/04/2019 09/11/2019 3:05 AM LABOR RELATIONS TEACHER Abscess/Wound/Cellulitis 10/16/2019 10/16/2019 3:05 AM CDT documented as of this encounter Care Teams Risk Control Representative Relationship Specialty Start Date End Date David Coppola MD PCP - General Family Medicine 10/29/17 Jacob Suarez MD Referring Physician Nephrology 12/20/18 Manrie Lara RN Registered Nurse Telecom Field Technician 12/20/1809/03 Ros Seay MD Sales Manager Cardiology 03/05/19 Johana Edmond, RN [address] [facility] [address] [place] [address] Telecom Field Technician 08/21/19 Abdifatah Villa MD [address] [facility] [address] [place] [address] Consulting Physician Cardiology 09/01/20 Issa Clements MD [address] [facility] [address] [place] [address] Referring Physician General Surgery 09/01/20 documented as of this encounter
--- OUTSIDE RECORDS SUMMARY | 2024-12-04 01:02 | XMS_ITS | Clinical Summary ---
Author Organization [facility] Address [address] [place] [id number] Phone Care Team Providers Care Maritime Guard Name Role Phone Unavailable Primary Care Provider Unavailabl e Medications imipramine (TOFRANIL) 25 MG tablet 0 03/04/2014 Active pioglitazone (ACTOS) 15 MG tablet 03/04/2014 Active amLODIPine (NORVASC) 5 MG tablet 03/04/2014 Active aspirin (ASPIR-LOW) 81 MG EC tablet 03/04/2014 Active lovastatin (MEVACOR) 20 MG tablet 03/04/2014 Active ergocalciferol (VITAMIN D-2) 59509 units capsule 1 weekly 03/04/2014 Active lisinopril (PRINIVIL,ZESTR IL) 20 MG tablet 1 daily 12 08/23/2017 Active diclofenac (VOLTAREN) 1 % topical gel 03/04/2014 Active omega-3 (FISH OIL) 1000 MG capsule 03/04/2014 Active clotrimazole (LOTRIMIN) 1 % cream 03/04/2014 Active ferrous sulfate 325 (65 Fe) MG tablet 03/04/2014 Active carvedilol (COREG) 3.125 MG tablet 1 ibid 12 07/17/2017 Active Methylcobalamin (H22-BWVJHQ) 1 MG chewable tablet half tab daily [...] Comments Blood Pressure 119/62 09/11/2018 12:01 AM POKER MACHINE ATTENDANT Pulse 72 02/01/2015 12:01 AM CDT Temperature 36.8 C (98.3 F) 02/01/2015 12:01 AM CDT Respiratory Rate - - Oxygen Saturation - - Inhaled Oxygen Concentration - - Weight 63.5 kg (140 lb) 09/11/2018 12:01 AM POKER MACHINE ATTENDANT Height 149.9 cm (4' 11) 09/11/2018 12:01 AM POKER MACHINE ATTENDANT Body Mass Index 28.28 09/11/2018 12:01 AM POKER MACHINE ATTENDANT Plan of Treatment Health Maintenance Due Date Last Done Comments Pneumococcal PPSV23/PCV13 66 + Years / Low and Medium Risk (1 of 4 - PCV) 1996 Influenza Vaccine (Season Ended) 2025
--- OUTSIDE RECORDS SUMMARY | 2024-12-04 01:02 | XMS_ITS | Encounter Summary ---
Author Organization [facility] Address [address] [place] [address] Care Team Providers Care Rework Machine Operator Name Role Phone David Coppola MD Primary Care Provider [phone] Jacob Suarez MD Unavailable [phone] Ros Seay MD Unavailable [phone] Abdifatah Villa MD Unavailable Issa Clements MD Unavailable [phone] Encounter Details Date Type Department Care Team (Late st Contact Info) Description 11/19/[address] [facility] [address] [place] [address] Yaritza Golden RN Social History Tobacco Use [...] often do you attend chur ch or congregation services? 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 Gender Identity Not on file Sexual Orientation Not on file documented as of this encounter Plan of Treatment Scheduled Procedures Name Priority Associated Diagnoses Date/Ti me TRANSPLANT KIDNEY ESRD (end stage renal disease) (HCC) documented as of this encounter Visit Diagnoses Not on filedocumented in this encounter Care Teams Rework Machine Operator Relationship Specialty Start Date End Date David Coppola MD PCP - General Family Medicine 10/29/17 Jacob Suarez MD Referring Physician Nephrology 12/20/18 Ros Seay MD Data Processing Operator Cardiology 03/05/19 Abdifatah Villa MD [address] [facility] [address] [place] [address] Consulting Physician Cardiology 09/01/20 Issa Clements MD [address] [facility] [address] [facility] [address] [place] [address] Referring Physician General Surgery 09/01/20 documented as of this encounter
--- OUTSIDE RECORDS SUMMARY | 2024-12-04 01:02 | XMS_ITS | Data Portability ---
Author Organization [place] [employer] [facility], Main Office Address [address] [place] [address] Care Team Providers Care Electrical Line Worker Name Role Phone NOY PENN Primary Care Provider [phone] NOY PENN Referring Provider Assessment Encounter Date Assessment Date Assessment LastModified by Organization Details LastModified Time 11/05/2024 11/05/2024 This note is dictated and transcribed by [employer]. Brand Development Manager variances may occur. Despite proofreading, typographical errors may occur. Occasional wrong-word or 'eustd-x-oten' substitutions may have occurred due to the inherent limitations of voice recording. Read the chart carefully and recognize, using context, where substitutions have occurred. Not available 11/05/2024 10:07:50 11/12/2024 11/12/2024 This note is dictated and transcribed by [employer]. Brand Development Manager variances may occur. Despite proofreading, typographical errors may occur. Occasional wrong-word or 'ojmul-u-clsq' substitutions may have occurred due to the inherent limitations of voice recording. Read the chart carefully and recognize, using context, where substitutions have occurred. Not available 11/12/2024 10:29:43 11/26/2024 11/26/2024 This note is dictated and transcribed by [employer]. Brand Development Manager variances may occur. Despite proofreading, typographical errors may occur. Occasional wrong-word or 'vlfnp-s-qmfn' substitutions may have occurred due to the inherent limitations of voice recording. Read the chart carefully and recognize, using context, where substitutions have occurred. Not available 11/26/2024 15:35:02 12/03/2024 12/03/2024 This note is dictated and transcribed by [employer]. Brand Development Manager variances may occur. Despite proofreading, typographical errors may occur. Occasional wrong-word or 'znwcv-o-jsmf' substitutions may have occurred due to the inherent limitations of voice recording. Read the chart carefully and recognize, using context, where substitutions have occurred. 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 901489368 Active 2019 Not Available [facility] 3 01:04:36 Type 2 diabetes mellitus 93056536 Active 2019 Not Available [facility] 3 01:04:36 Long-term current use of anticoagul ant 241965629 Active 2018 Not Available [facility] 3 01:04:36 Diabetes mellitus 96246402 Active Not Available [facility] 3 01:04:36 Dystrophia unguium 08161645 Active 2023 Nir Boo DPM [address], [address], [place], [address] , [facility] 4 10:49:49 Peripheral arterial occlusive disease 725853891 Active 2023 Nir Boo DPM [address], [address], [place], [address] , [facility] [employer] [facility] [employer] [facility] 4 10:45:01 Pressure injury of heel 483310930 Active 2024 Nir Boo DPM [address], [address], [place], [address] , [facility] [employer] [facility] 5 17:15:17 Foot ulcer due to type 2 diabetes mellitus 5247511898014 Active 2024 Nir Boo DPM [address], [address], [place], [address] , [facility] [employer] [facility] [employer] [facility] 5 10:24:10 Problem Notes None recorded. Procedures Surgical History Date Name Laterality Status Provider Name and Address Organization Details Recorded Time 5 Wound Care-Podiatry completed Nir Boo DPM [address], [address], [place], [address], [facility] [employer] [facility] 12/03/2024 14:36:08 5 Wound Care-Podiatry completed Satya Hodges RN [facility] [employer] [facility] 11/26/2024 13:08:11 5 Wound Care-Podiatry completed Theresa Hudson RN [facility] [employer] [facility] 11/17/2024 10:40:25 5 Wound Care-Podiatry completed Nir Boo DPM [address], [address], [place], [address], [facility] [employer] [facility] 11/12/2024 10:27:54 5 Wound Care-Podiatry completed Kierra Shaw [facility] [employer] [facility] 11/05/2024 09:58:53 5 Wound Care-Podiatry completed Theresa Hudson RN [facility] [employer] [facility] 10/29/2024 10:15:59 5 Wound Care-Podiatry completed Theresa Hudson RN [facility] [employer] [facility] 10/22/2024 14:11:35 5 Wound Care-Podiatry completed Theresa Hudson RN [facility] [employer] [facility] 10/22/2024 10:21:47 5 Nail Debridement completed Nir Boo DPM [address], [address], [place], [address], [facility] [employer] [facility] 08/21/2024 17:55:22 4 Nail Debridement completed Nir Boo DPM [address], [address], [place], [address], [facility] [employer] [facility] [employer] [facility] 03/20/2024 10:44:17 4 Plantar Fascia Injection Left Foot completed Nir Boo DPM [address], [place], [address], [facility] [employer] [facility] [employer] [facility] 01/31/2024 10:17:02 4 Nail Debridement completed Nir Boo DPM [address], [address], [place], [address], [facility] [employer] [facility] [employer] [facility] 12/20/2023 10:08:42 4 Nail Debridement completed Nir Boo DPM [address], [place], [address], [employer] [facility] [employer] [facility] 09/20/2023 13:30:21 Imaging Results None [...] active Not Available Not Available Not Available [employer] Ultra Test strips USE 1 STRIP TO [...] Available Not Available Not Available coenzyme Q10 02/13 /2025 completed Not Available Not Available Not Available [...] 96 % 139 mm[Hg] 29 mm[Hg] Kierra [facility] 5 09:51:50 Date Recorded Body height Heart rate Respiratory rate Body temperature Oxygen saturation Oxygen saturation in Arterial blood by Pulse oximetry Systolic blood pressure Diastolic blood pressure Provider Name and Address Organization Details Last Updated DateTime 5 142.24 cm 61 /min 16 /min 98 [degF] 100 % 100 % 138 mm[Hg] 48 mm[Hg] Kierra [employer] 5 09:47:43 Date Recorded Body height Heart rate Respiratory rate Body temperature Oxygen saturation Oxygen saturation in Arterial blood by Pulse oximetry Provider Name and Address Organization Details Last Updated DateTime 5 142.24 cm 71 /min 17 /min 98.6 [degF] 96 % 96 % Kierra [employer] [facility] 5 12:19:19 Date Recorded Body height Heart rate Body temperature Oxygen saturation Oxygen saturation in Arterial blood by Pulse oximetry Systolic blood pressure Diastolic blood pressure Provider Name and Address Organization Details Last Updated DateTime 5 142.24 cm 63 /min 98.2 [degF] 94 % 94 % 132 mm[Hg] 43 mm[Hg] Satya Hodges RN [facility] Jajah [facility] 5 12:18:12 Social History None recorded. Functional Status None recorded. Mental Status None recorded. Family History Relationship Description Onset Age of this Age Resolved Age Notes LastModified by Organization Details LastModified Time Mother Diabetes mellitus [email or web address] Not available 01/07 09:54:09 Medical History Condition Response ARTHRITIS Y DIABETES, TYPE Y HYPERTENSION Y Gynecological HistoryNo gynecological history recorded. Obstetrics History GPAL:G 0 P 0 0 0 0 Past Encounters Encounter ID Performer Location Encounter Start Date Encounter Closed Date Diagnosis/Indication Diagnosis SNOMED-CT Code Diagnosis ICD10 Code Diagnosis Note [id number] [facility] [address] [place] [address] 09/10/2020 00:00:00 09/14/2020 08:36:52 [id number] [facility] [address] [place] [address] 09/28/2020 00:00:00 09/28/2020 14:50:38 [id number] [facility] [address] [place] [address] 10/19/2020 00:00:00 10/19/2020 13:49:49 [id number] [facility] [address] [place] [address] 11/09/2020 00:00:00 11/09/2020 12:59:33 [id number] [facility] [address] [place] [address] 11/30/2020 00:00:00 11/30/2020 11:40:45 [id number] [facility] [address] [place] [address] 12/14/2020 00:00:00 12/14/2020 12:48:09 [id number] [facility] [address] [place] [address] 12/28/2020 00:00:00 12/29/2020 09:43:12 [id number] [facility] [address] [place] [address] 01/18/2021 00:00:00 01/18/2021 15:18:36 [id number] [facility] [address] [place] [address] 02/08/2021 00:00:00 02/08/2021 13:45:16 [id number] [facility] [address] [place] [address] 03/15/2021 00:00:00 03/20/2021 22:38:46 [id number] [facility] [address] [place] [address] 04/05/2021 00:00:00 04/05/2021 16:04:39 [id number] [facility] [address] [place] [address] 04/29/2021 00:00:00 05/01/2021 21:11:10 [id number] [facility] [address] [place] [address] 07/26/2021 00:00:00 07/31/2021 13:42:25 [id number] [facility] [place] [address] [place] [address] 09/15/2021 00:00:00 09/18/2021 14:48:13 [id number] [facility] [place] [address] [place] [address] 01/05/2022 00:00:00 01/05/2022 11:13:02 [id number] [facility] [place] [address] [place] [address] 03/09/2022 00:00:00 03/14/2022 10:05:11 [id number] [facility] [place] [address] [place] [address] 05/18/2022 00:00:00 05/19/2022 10:48:31 [id number] Nir Boo DPM [facility] [place] [address] [place] [address] 09/20/2023 10:24:34 09/20/2023 13:43:29 Diabetes mellitus 03371617 E11.40 E11.51 Z86.31 continue diabetic control to PCP Type 2 pauline betes mellitus with peripheral angiopathy 676747103 E11.51 Rx diabetic shoes and insolesPat ient educated on neuropathy , diabetes, diabetic diet, and daily foot exams. Patient is to check feet daily for new wounds, blisters, redness to prevent infection and ulceration s to the feet. Patient will return to clinic in 3 months for diabetic foot workup. Dystrophia unguium 92791 009 L60.3 Nails were debrided without incident [id number] Nir Boo DPM [facility] [place] [address] [facility] [place] [address] 12/20/2023 09:38:06 12/20/2023 11:25:05 Diabetes mellitus 33952840 E11.40 E11.51 Z86.31 continue diabetic control to PCPcontinu e diabetic shoes and insolesChe ck feet daily for wounds infection at present seek medical attention immediatel yFollow-up in 3 months for foot care Ingrowing nail of toe of right foot 9310078989 7622858 L60.0 great toe, medial borderNail cut out [...] matrixecto my History of diabetic foot ulcer 8210808459 3385950 Z86.31 as above- monitoring daily continuing diabetic shoe gear [id number] Nir Boo DPM [facility] [place] [address] [place] [address] 01/31/2024 09:45:22 01/31/2024 13:17:37 Plantar fasciitis of left foot 6373661634 9937107 M72.2 injection left heelrice therapycon tinue supportive shoe gearfollow -up 3-4 weeks [id number] Nir Boo DPM [facility] [place] [address] [place] [address] 02/14/2024 10:17:41 02/14/2024 16:26:44 Right Achilles tendinitis 5608271910 56362 M76.61 stretching icing instructio ns reviewedCo ntinue supportive shoe gearContin ue physical therapyFol low-up 1 month Bilateral plantar fasciitis 1294639543 0230120 M72.2 as above [id number] Nir Boo DPM [facility] [place] [address] [place] [address] 03/20/2024 10:19:30 03/21/2024 11:21:55 Ingrowing nail of toe of right foot 5636348511 9836431 L60.0 great toe, medial borderNail cut out [...] partial matrixecto my Peripheral arterial occlusive disease 706326039 I73.9 rule out peripheral arterial disease- healing potential for possible surgery secondary to history of amputation s Bilateral plantar fasciitis 4109543390 0402710 M72.2 resolved continue supportive shoe gearfollow -up as needed [id number] Nir Boo DPM [facility] [place] [address] [place] [address] 04/03/2024 10:12:13 04/03/2024 14:14:54 Peripheral arterial occlusive disease 055537331 I73.9 arterial studies reviewed with the patientTreva lucero daily exercisesw ill continue to monitor Diabetes mellitus 309522 09 E11.40 E11.51 Z86.31 continue diabetic control to PCPcontinu e diabetic shoes and insolesChe ck feet daily for wounds infection at present seek medical attention immediatel yFollow-up in 3 months for foot care [id number] Nir Boo DPM [facility] [place] [address] [place] [address] 05/01/2024 10:51:52 05/01/2024 11:45:25 Plantar fasciitis of right foot 5165643979 4158783 M72.2 Resolved History of diabetic foot ulcer 6218104836 2667655 Z86.31 as above- monitoring daily continuing diabetic shoe gearfollow -up in 3 months for diabetic foot care [id number] Nir Boo DPM [facility] [place] [address] [place] [address] 08/21/2024 15:56:25 08/26/2024 14:01:26 Peripheral vascular disease 367980881 I73.9 refer vascular for evaluation possible angio stenting Pressure i njury of heel 127792702 L89.609 offloading at all times both heels to prevent worseningh igh pressure wound to the right heelmonito r for infection if present seek medical attention immediatel yFollow-up in 1 month Type 2 pauline betes mellitus with peripheral angiopathy 786301288 E11.51 Rx diabetic shoes and insolesPat ient educated on neuropathy , diabetes, diabetic diet, and daily foot exams. Patient is to check feet daily for new wounds, blisters, redness to prevent infection and ulceration s to the feet. Patient will return to clinic in 3 months for diabetic foot workup. [id number] Nir Boo DPM [facility] [place] [address] [place] [address] 10/16/2024 11:27:10 10/22/2024 15:58:50 Foot ulcer due to type 2 diabetes mellitus 3208115925 100 E11.621 right heeldaily dressings with offloading at all timesmonit or for signs of infection at present seek medical attention immediatel yObtain non-invasi ve vascular testingedu cated on [facility] ollow-up 1 week Peripheral arterial occlusive disease 305112118 I73.9 obtain Doppler and MELISSA [id number] Nir Boo DPM [facility] [address] [place] [address] 10/22/2024 09:36:02 10/22/2024 15:42:20 Foot ulcer due to type 2 diabetes mellitus 3251102145 100 E11.621 right heeldaily dressings with offloading at all timesmonit or for signs of infection at present seek medical attention immediatel yObtain non-invasi ve vascular testingedu cated on [facility] [employer] orderedfol low-up 1 week Peripheral arterial occlusive disease 899030526 I73.9 obtain Doppler and MELISSA- to ensure adequate wound healing [id number] [facility] [address] [place] [address] 10/29/2024 09:41:18 10/29/2024 11:20:00 Foot ulcer due to type 2 diabetes mellitus 2478333403 100 E11.621 right heeldaily dressings with offloading at all timesmonit or for signs of infection at present seek medical attention immediatel yObtain non-invasi ve vascular testingedu cated on [facility] orderedfol low-up 1 week Peripheral arterial occlusive disease 011443526 I73.9 obtain Doppler and MELISSA- to ensure adequate wound healingsch edule vascular doppler tomorrow [id number] Nir Boo DPM [facility] [address] [place] [address] 11/05/2024 09:38:31 11/05/2024 13:43:50 Foot ulcer due to type 2 diabetes mellitus 1574379653 100 E11.621 right heeldaily dressings with offloading at all timesmonit or for signs of infection at present seek medical attention immediatel yObtain non-invasi ve vascular testingedu cated on [facility] [employer] orderedfol low-up 1 week Peripheral arterial occlusive disease 785774432 I73.9 obtain Doppler and MELISSA- to ensure adequate wound healing [id number] [facility] [address] [place] [address] 11/12/2024 09:40:07 11/13/2024 10:37:23 Foot ulcer due to type 2 diabetes mellitus 4579184051 100 E11.621 right heeldaily dressings with offloading at all timesmonit or for signs of infection at present seek medical attention immediatel yObtain non-invasi ve vascular testingedu cated on [facility] [employer] orderedfol low-up 1 week Peripheral arterial occlusive disease 714360611 I73.9 obtain Doppler and MELISSA- to ensure adequate wound healing [id number] [facility] [address] [place] [address] 11/17/2024 09:38:37 11/17/2024 16:59:15 [id number] Nir Boo DPM [facility] [address] [place] [address] 11/26/2024 11:58:09 11/26/2024 16:02:40 Foot ulcer due to type 2 diabetes mellitus 9881039897 100 E11.621 right heeldaily dressings with offloading at all timesmonit or for signs of infection at present seek medical attention immediatel yObtain non-invasi ve vascular testingedu cated on [facility] [employer] orderedfol low-up 1 week Peripheral arterial occlusive disease 909924407 I73.9 successful stenting with angio right leg last week [id number] Nir Boo DPM [facility] [address] [place] [address] 12/03/2024 11:43:09 12/03/2024 15:34:51 Foot ulcer due to type 2 diabetes mellitus 5303945098 100 E11.621 right heeldaily dressings with offloading at all timesmonit or for signs of infection at present seek medical attention immediatel yObtain non-invasi ve vascular testingedu cated on [facility] [employer] orderedfol low-up 1 week Peripheral arterial occlusive disease 208909870 I73.9 successful stenting with angio right leg last week Health Concerns Section Related Observation LastModified by Organization Detai ls LastModified Time None Recorded Concern Status LastModified by Organization Details LastModified Time None Recorded Advance Directives Directive None Recorded Payers Encounter Date Sequence Insurance Name Policy Number Policy Garay Covered Member ID Garay Member ID Guarantor Name 11/05/2024 2 [place] [facility] Shasta Farnsworth-Hasan [id number] Shasta Ali-Hasan 11/05/2024 1 [facility] (MEDICARE REPLACEMENT/A DVANTAGE - PPO) [id number] Shasta Ali-Hasan [id number] Shasta Ali-Hasan 11/12/2024 2 [place] [facility] Shasta Ali-Hasan [id number] Shasta Ali-Hasan 11/12/2024 1 [facility] (MEDICARE REPLACEMENT/A DVANTAGE - PPO) [id number] Shasta Ali-Hasan [id number] Shasta Ali-Hasan 11/17/2024 2 [place] [facility] Shasta Ali-Hasan [id number] Shasta Ali-Hasan 11/17/2024 1 [facility] (MEDICARE REPLACEMENT/A DVANTAGE - PPO) [id number] Shasta Ali-Hasan [id number] Shasta Ali-Hasan 11/26/2024 2 [place] [facility] Shasta Ali-Hasan [id number] Shasta Ali-Hasan 11/26/2024 1 [facility] (MEDICARE REPLACEMENT/A DVANTAGE - PPO) [id number] Shasta Ali-Hasan [id number] Shasta Ali-Hasan 12/03/2024 2 [place] [facility] Shasta Ali-Hasan [id number] Shasta Ali-Hasan 12/03/2024 1 [facility] (MEDICARE REPLACEMENT/A DVANTAGE - PPO) [id number] Shasta Ali-Hasan [id number] Shasta Ali-Hasan Notes Date Note Type Note Provider Name and Address Organization Details Recorded Time 11/05/2024 text/html . Patient is a 79-year-old [...] it adequately. Nir Boo DPM [address], [place], [address], [employer] 11/05/2024 10:23:50 11/12/2024 text/html . Patient is a 79-year-old female she returns for open wound to the plantar heel right lower extremity she has a continued full-thickness wound with a healthy granular base she states she is offloading her algorithm developer also states that she is doing this. Patient did not again bring her protective device for my review. Patient presents in a wheelchair. Patient denies any pain or signs of infection. Patient denies any other complaints. Nir Boo DPM [address], [place], [address], [employer] 11/12/2024 10:30:55 11/26/2024 text/html . Patient is [...] Boo DPM [address], [place], [address], [employer] 11/26/2024 15:36:25 12/03/2024 text/html . Patient is a 79-year-old female diabetic she has a continued wound to the right heel which is stable and healthy in nature. Patient underwent vascular angio and she overall has a healthy wound. Patient was educated again about the importance of offloading. Patient denies any other complaints. Nir Boo DPM [address] [facility], [facility] [address], [place], [address], [facility] [place] [employer] [facility] 12/03/2024 14:37:39 OBGyn Episode No OBEpisode recorded.
--- OUTSIDE RECORDS SUMMARY | 2024-12-04 01:02 | XMS_ITS | Clinical Summary ---
Author Organization [facility] Address [address] [place] [address] Care Team Providers Care Forestry Consultant Name Role Phone David Coppola MD Primary Care Provider +- [phone] David Coppola MD Unavailable [phone] David Coppola MD Unavailable [phone] Virginie Corea RN Unavailable [phone] Source Comments [facility],non-owned Affiliates and Associated Physician Practices is amultiple site organization consisting of ambulatory clinics and hospital sitesin [place], [place], [place] and [place]. This disclosure is being madepursuant to the Care Everywhere program and may not contain all information available regarding this patient. Last updated 18.[facility] Allergies Active Allergy Reactions Criticality Noted Date [...] vitamin D, ergocalciferol , (DRISDOL) 1.25 MG (06454 UT) capsule Take 1 (one) capsule by [...] included. Listing date: Not yet listed Referring Make Up Girl: Dr. Suarez Dialysis Type and Start Date: [...] lives with her Estela. She speaks fluent Algerian. She has 3 children who live in [place] and [facility]. Her support system is her and his [...] (Bezet) ms 462 ms Final Calculated R Brule degrees 82 degrees Final Calculated T axis degrees 53 degrees Final EKG Interp Final ATRIAL FIBRILLATION NONSPECIFIC ST ABNORMALITY , PROBABLY DIGITALIS EFFECT ABNORMAL ECG NO PREVIOUS ECGS AVAILABLE Confirmed by Fritz GANT, MIKE ([id number]), heel top lift splitter Joseph Ingram ([id number]) on 04/04/2018 1:32:49 PM Echo: 03/28/18 CONCLUSION: There is moderate concentric left ventricular hypertrophy. The left ventricular ejection fraction is estimated at 65 %. There are no regional wall motion abnormalities present. Estimated right ventricular systolic pressure is 39 mmHg. Severe biatrial enlargement Mild dilated proximal ascending aorta. DSE: n/a will need [facility] Cardiac Cath: Will need d/t length of [...] Completed at OSH on 03/20/18 Cardiac Catheterization03/20/2018 [facility] Result Narrative PERIPHERAL ANGIOGRAM AND INTERVENTION [...] groin hematoma, retroperitoneal bleed, vessel perforation; periprocedural MD, stroke, contrast induced nephropathy, and even . [...] artery access site 8. Moderate Sedation (CPT 71880) MODERATE SEDATION: Midazolam 2 mg , Fentanyl 50 mcg, start time 1157 stop time 1318, total direct [id number] monitoring of conscious sedation 81 minutes (CPT 35722) TRAINED OBSERVER: Mena Scruggs RN was trained office over for moderate sedation. ACCESS SITE: Right common femoral artery PROCEDURE: After obtaining informed consent, patient was brought to the laborer petroleum refinery and prepped and draped in the usual sterile manner. After local anesthesia with lidocaine, right common femoral artery access was taken with micropuncture needle followed by insertion of a 5 Northern Irish sheath over a 0.035 inch wire. Selective right common femoral angiogram with distal runoff was performed through the 5 Northern Irish sheath. After this, a 5 Northern Irish IM catheter was advanced in the distal abdominal aorta, distal abdominal aortogram with bilateral iliac runoff was performed. The same catheter was pointed towards the left common iliac artery, selective left common iliac angiogram with distal runoff was performed. During intervention, selective left common femoral angiogram and superficial femoral angiogram was performed using the long 6 Northern Irish sheath. The angiographic findings and details of [...] intervention on the same vessel. The 5 Northern Irish sheath was exchanged with a long 90 cm sheath over 035 glide wire. The tip of the long sheath was position in the proximal popliteal artery. Patient received heparin for procedural anticoagulation, ACT was monitored throughout the procedure. Patient also received aspirin loading dose of clopidogrel 600 mg in the laborer petroleum refinery. The totally occluded, calcified left anterior tibial [...] received dental clearance PPD: Colonoscopy: Completed at [facility] 12/02/2015 Mammo: Pap: Dental: SW: 03/28/18 Clinical Social Work Impression: It is the impression of this administrator social welfare that Shasta Obando has several positive factors for Kidney transplant candidacy from a psychosocial perspective. Pt has a good understanding of her disease and motivation for kidney transplant. Pt appears to have adequate insurance and financial situation (children provide assistance as needed) for post transplant needs. Pt has identified adequate support system and appropriate discharge plan. No concerns regarding substance abuse identified. Plan: emery wheel worker to provide supportive services as needed. No f/u indicated at this time.Patient appears to be a reasonable candidate for transplant from a psychosocial perspective. Post transplant arrangement forms are needed prior to being listed. Psychiatric Consult Recommended: No Transplant Assessment Director: Nicole Tomas LMSW RD: 03/28/18 BMI= 28.51, overweight - Pt is considered to be a good candidate for a Kidney Transplant from a Nutrition standpoint. Recommendations/Interventions: Pt instructed to continue to work with Renal RD at HD on diet and to be compliant. Lindsay Gardner Encounter for other preprocedural examination Overview (10/08/2017): Listing date: Not yet listed Referring Make Up Girl: Dr. Suarez Dialysis Type and Start Date: [...] lives with her Estela. She speaks fluent Algerian. She has 3 chilren who live in [place] and [facility]. Her support system is her and his [...] Transplant surgery appt: Consults: cardiology consult with [facility] Notes: Not yet presented Evaluation Testing Date and Results: Labs: PTH: A1c: Glucose: PSA: GFR: Serologies: CMV Igg: EBV Igg: Albumin: Tox Screen: PRA: Echo: DSE: Cardiac Cath: CXR: Pano: US: PPD: Negative at on 05/08/2016 Colonoscopy: Completed at [facility] 12/02/2015 Mammo: Pap: Dental: SW: RD: Abnormal finding on imaging 06/15/2015 Overview (06/15/2015): Filling defect on venography of central veins. Need to rule out aortic arch aneurysm. Complication of arteriovenous dialysis fistula PVD (peripheral vascular disease) Encounters Date Type Department Care Team Description 11/26/2024 Travel 11/11/2024 10:04 AM CDT - 11/11/2024 11:59 PM CDT Hospital Encounter [facility] Health Vascular Services [address], [address] [place] [address] David Buitrago MD Oak, MD Corie Denton Mahbubul, MD Discharge Disposition: Home or Self Care 11/11/2024 Travel from Last 3 Months Immunizations Immunization Administration Dates Next Due Covid Moderna primary monova lent 12+ yr 0.5mL 11/04/2021,10/15/2020,09/17/2020 Family History Medical History Relation Name Comments MD Brother 3 Heart Disease Father Hypertension Father MD Father Hypertension Mother Relation Name Status Comments [...] on file Legal Sex Female 5:40 PM PMP Gender Identity Not on file Sexual Orientation [...] 10:29 AM CDT Height 142.2 cm (4' 8) 11/11/2024 10:29 AM CDT Body Mass Index 24.66 11/11/2024 10:29 AM CDT Plan of Treatment Upcoming Encounters Date Type Department Care Team (Late st Contact Info) Description 03/10/2025 11:00 AM CDT Appointment [facility] Vascular Services [address], [address] [place] [address] [place] [address] [facility] [address] [place] [address] [place] [address] [facility] [address] [place] [address] Cristo Fontenot MD [address] [place] [address] 03/17/2025 1:00 PM CDT Procedure visit [facility] - [address] [phone] 03/17/2025 1:30 PM CDT Office Visit [facility] [place] [address] [facility], [place] [phone] Avis Dumont, LAP CUTTER-QUALITY ASSURANCE INTERN [address] [facility] [address] [place] [phone] Health Maintenance Due Date Last Done Comments [...] this topic Medical Devices Implanted Type Area Agency Director Device Identifier Shelf Expiration Date Model / Serial / Lot Duraflow 2 Hemodialysis Catheter Implanted:Qty: 1 on 02/22/2015 by David Buitrago MD at [facility] Right: Chest 06/07/2017 [id number] / / [id number] Ragland Acuseal Vascular Graft Implanted:Qty: 1 on 04/02/2018 by David Buitrago MD at [facility] Left: Arm 10/29/2020 [id number] / / [id number] Procedures Procedure Name Priority Date/Time Associated Diagnosis [...] Notes Date: 11/11/2024 Surgeon: Cristo Fontenot MD Retail Client Manager: none Pre-Procedure diagnosis: Prolonged bleeding after access [...] over the wire for a short 6 Northern Irish sheath. Over the wire, peripheral venoplasty was [...] glen Non-reac tive 03/28/2018 2:50 PM CDT [facility] Comment: Hepatitis C Antibody screen [...] LAB - CHEMISTRY [place] [address], [facility] [phone] from Last 3 Months or Most Recently Relevant to Health Maintenance Insurance MEDICAID - [place] UHC MANAGED MEDICARE ADV MEDICAID - OUT OF STATE [employer] [place] [address] Advance Directives Documents on File Type Date Recorded Patient Quiller Hand Expl anation Adv Directive/Living Will/POA 09/18/2017 * Full Code (Latest Code Status on File) Date Activated Date Inactivated Comments 02/22/2015 4:27 PM 02/23/2015 5:53 PM Care Teams Forestry Consultant Relationship Specialty Start Date End Date David Coppola MD [address] [place] [phone] PCP - General 08/15/16 David Coppola MD [address] [place] [phone] Family Medicine 02/08/15 David Coppola MD [facility] [place] [address] Family Medicine 08/15/16 Virginie Corea, ABENA Warehouse Trainer 02/23/15
--- OUTSIDE RECORDS SUMMARY | 2024-12-04 01:02 | XMS_ITS | Clinical Summary ---
Author Organization [facility] Address [address] [place] [address] Phone Care Team Providers Care Patient Attendant Name Role Phone David Coppola MD Primary Care Provider [phone] Allergies Active Allergy Reactions Criticality Noted Date Comments Cephalexin Unknown 10/27/2021 Gabapentin Unknown 10/27/2021 Sulfamethoxazole Unknown 10/27/2021 Medications acetaminophen (TYLENOL) 500 MG Tablet Take 500 mg by mouth every 4 hours as needed. Active clotrimazole (LOTRIMIN) 1 % Cream Apply 3 times daily. Application Site: Apply twice daily as needed for arm Active Lidocaine-Prilo umair (EMLA EX) by Apply externally route. Active Vitamin D3 (Vitamin D3) 1000 UNIT Tablet Take by mouth. Activ e Liraglutide (VICTOZA SC) by Subcutaneous route. Pen inject 1.8 Active SITagliptin (JANUVIA) 100 MG Tablet Take 100 mg by mouth daily. Active Denosumab (PROLIA SC) by Subcutaneous route. Every 6 months Active traZODone (DESYREL) 50 MG Tablet Take 50 mg by mouth nightly. Active Calcium Carbonate Antacid (TUMS PO) Take by mouth. Activ e clopidogrel (Plavix) 75 MG Tablet Take 75 mg by mouth daily. Active Aspirin 81 MG Capsule Take 1 Capsule by mouth daily. Active pantoprazole (PROTONIX) 40 MG Pack Take 1 Tablet by mouth 2 times daily. Active Tenofovir Alafenamide Fumarate (Vemlidy) 25 MG Tablet Take 1 Tablet by mouth daily. Active lisinopril (PRINIVIL, ZESTRIL) 10 MG Tablet Take 1 Tablet by mouth daily. Active carvedilol (COREG) 6.25 MG Tablet Take 1 Tablet by mouth daily. Active B Hoxyelb-N-Qskys Acid (Triphrocaps) 1 MG Capsule Take 1 Capsule by mouth daily. Active ergocalciferol (VITAMIN D) 43000 UNIT Capsule Take 1 Capsule by mouth once a week. saturdays Active atorvastatin (LIPITOR) 40 MG Tablet Take 1 Tablet by mouth daily. Active Insulin Lispro, 1 Unit Dial, (HumaLOG KwikPen) 100 UNIT/ML Solution Pen-injectorInd ications:pt takes Tresiba instead with same sliding scale. 2-12 Units by Subcutaneous route 3 times daily (after meals). Indications: pt takes Tresiba instead with same sliding scale. Active insulin degludec (TRESIBA) 100 UNIT/ML Solution Pen-injectorInd ications:Type 2 Diabetes Mellitus 2-10 Units by Subcutaneous route 3 times daily. <60 or >500: notify MD 150-199= 2 units 200-249= 4 units 250-299= 6 units 300-349 = 8 units 350-399=10 units 400-499= 12 units Indications: Type 2 Diabetes Active atorvastatin (LIPITOR) 20 MG Tablet Take 20 mg by mouth daily. 025 Discontin ued(Med List Clean Up) famotidine (PEPCID) 40 MG Tablet Take 40 mg by mouth daily. 025 Discontin ued(Med List Clean Up) irbesartan (AVAPRO) 75 MG Tablet Take 75 mg by mouth nightly. 025 Discontin ued(Med List Clean Up) Cyanocobalamin (VITAMIN B 12 PO) Take by mouth. 025 Discontin ued(Med List Clean Up) sevelamer (RENAGEL) 800 MG Tablet Take by mouth 3 times daily. 025 Discontin ued(Med List Clean Up) cinacalcet (SENSIPAR) 30 MG Tablet Take 30 mg by mouth. 025 Discontin ued(Med List Clean Up) Encounters Date Type Department Care Team Description 12/02/2024 3:30 PM CDT Home Care Visit [address] [address] Mendy Kenny RN SN - PRIORITY VISIT 11/29/2024 [facility] Care Visit [facility] [address] [address] Lindsay Boyd, RN TELEPHONE ENCOUNTER 11/28/2024 9:00 AM CDT Home Care Visit [address] [address] Gillian June, PT PT - INITIAL EVALUATION 11/28/2024 Travel 11/27/2024 5:00 PM CDT Home Care Visit [address] [address] Claudia Aviles OT OT - INITIAL EVALUATION 11/27/2024 1:30 PM CDT Home Care Visit [address] [address] Lindsay Boyd, RN SN - OASIS START OF CARE 11/27/2024 Plan of Care Documentation [address] [address] from Last 3 Months Social History Tobacco Use Types Packs/Day Years Used Date Smoking Tobacco: Never Smokeless Tobacco: Never Comments No Sex and Gender Information Value Date Recorded Sex Assigned at Not on file Legal Sex Female 3:43 PM VA UNDERWRITER Gender Identity Not on file Sexual Orientation Not on file Last Filed Vital Signs Vital Sign Reading Time Taken Comments Blood Pressure 112/47 12/02/2024 4:38 PM CDT Pulse 63 12/02/2024 4:38 PM CDT Temperature 36.7 C (98.1 F) 12/02/2024 4:38 PM CDT Respiratory Rate 16 12/02/2024 4:38 PM CDT Oxygen Saturation 95% 12/02/2024 4:38 PM CDT Inhaled Oxygen Concentration - - Weight 54.2 kg (119 lb 6.4 oz) 11/27/2024 2:22 P M CDT Height 142.2 cm (4' 8) 11/27/2024 4:18 PM CDT Body Mass Index 26.77 11/27/2024 2:22 PM CDT Plan of Treatment Upcoming Encounters Date Type Department Care Team (Late st Contact Info) Description 12/04/2024 3:30 PM CDT Home Care Visit [address] [address] Joann Hudson, LATIN DANCE INSTRUCTOR 12/09/2024 3:30 PM CDT Home Care Visit [address] [address] Joann Hudson, LATIN DANCE INSTRUCTOR 12/10/2024 1:00 AM CDT Home Care Visit [address] [address] Lindsay Boyd, RN [place] 12/11/2024 2:30 PM CDT Home Care Visit [address] [address] Joann Hudson, LATIN DANCE INSTRUCTOR 12/16/2024 1:00 AM CDT Home Care Visit [address] [address] Gillian June, PT [place] 12/17/2024 1:00 AM CDT Home Care Visit [address] [address] Lindsay Boyd RN [place] 12/18/2024 1:00 AM CDT Home Care Visit [address] [address] Joann Hudson, LATIN DANCE INSTRUCTOR 12/23/2024 1:00 AM CDT Home Care Visit [address] [address] Joann Hudson, LATIN DANCE INSTRUCTOR 12/24/2024 1:00 AM CDT Home Care Visit [address] [address] Lindsay Boyd RN [place] 12/26/2024 1:00 AM CDT Home Care Visit [address] [address] Gillian June, PT [place] 12/31/2024 1:00 AM CDT Home Care Visit [address] [address] Lindsay Boyd RN [place] 01/07/2025 1:00 AM CDT [facility] [address] [place] [address] Lindsay Boyd RN [place] 01/14/2025 1:00 AM CDT [facility] [address] [place] [address] Lindsay Boyd RN [place] 01/21/2025 1:00 AM CDT [facility] [address] [place] [address] Lindsay Boyd RN [place] Health Maintenance Due Date Last Done Comments DEXA Bone Density 1945 Hepatitis B Immunization (2 of 3 - 19+ 3-dose series) 05/24/2018 04/26/2018 Zoster Immunization (2 of 2) 01/06/2022 11/11/2021 SARS-COV-2 Immunization () 09/24/2024 03/27/2024, 05/16/2023, 05/05/2022, Additional history exists Hepatitis C Virus (HCV) Screening Completed 03/28/2018 Pneumococcal Immunization (50+ years) Completed 11/11/2021, 05/08/2019, 04/09/2014 Respiratory Syncytial Virus (RSV) Immunization (Adult) Completed 07/13/2023 DTaP/Tdap/Td Immunization Discontinued 03/06/2024 Influenza Immunization Completed , 05/02/2023, 03/24/2020, Additional history exists TdaP Immunization Completed 03/06/2024 Human Papillomavirus (HPV) Immunization Aged Out No longer eligible based on patient's age to complete this topic Meningococcal Immunization (ACWY) Aged Out No longer eligible based on patient's age to complete this topic Rotavirus Immunization Aged Out No lo nger eligible based on patient's age to complete this topic Insurance MEDICARE [facility] Care Teams Patient Attendant Relationship Specialty Start Date End Date David Coppola MD [address] [place] [id number] PCP - General Family Medicine 11/22/24
--- OUTSIDE RECORDS SUMMARY | 2024-12-04 01:02 | XMS_ITS | Encounter Summary ---
Author Organization [facility] Address [address] [place] [address] Care Team Providers Care Stretcher Leveler Operator Name Role Phone David Coppola MD Primary Care Provider + [phone] David Coppola MD Unavailable [phone] David Coppola MD Unavailable [phone] Virginie Corea RN Unavailable [phone] Encounter Details Date Type Department Care Team (Late st Contact Info) Description 03/19/2023 Telephone [facility] . Wound Care [address] [facility] , [address] [phone] Lima Martins Social History Tobacco Use Types Packs/Day Years Used Date Smoking Tobacco: Never Smokeless Tobacco: Never Alcohol Use Standard Drinks/Week Comments No 0 (1 standard drink = 0.6 oz pur e alcohol) Comments No Sex and Gender Information Value Date Recorded Sex Assigned at Not on file Legal Sex Female 5:40 PM PERMACULTURE DESIGNER Gender Identity Not on file Sexual Orientation [...] Info) Description 03/10/2025 11:00 AM CDT Appointment [facility] Vascular Services [address] [facility], [address] [place], [place] [phone] [place] [address] [facility] [address] [place] [phone] [place] [address] [facility] [address] [place] [phone] Cristo Fontenot MD [address] [address] 03/17/2025 1:00 PM CDT Procedure visit [facility] [place] [address] [place] [phone] 03/17/2025 1:30 PM CDT Office Visit [facility] [place] [address] [place] [phone] Avis Dumont, FINANCIAL SYSTEMS MANAGER-PEST CONTROL WORKER [address] [address] documented as of this encounter Visit Diagnoses Not on filedocumented in this encounter Care Teams Stretcher Leveler Operator Relationship Specialty Start Date End Date David Coppola MD [address] [place] [phone] PCP - General 08/15/16 David Coppola MD [address] [place] [phone] Family Medicine 02/08/15 David Coppola MD [address] [place] [phone] Family Medicine 08/15/16 Virginie Corea, ABENA Housing Relocation 02/23/15 documented as of this encounter
--- OUTSIDE RECORDS SUMMARY | 2024-12-04 01:02 | XMS_ITS | Encounter Summary ---
Author Organization [facility] Address [address] [place] [address] Phone Care Team Providers Care Seasonal Customer Service Associate Name Role Phone David Coppola MD Primary Care Provider [phone] Reason for Visit * Auth/Cert (Routine) Specialty Diagnoses / Procedures Referred By Contac t Referred To Contact Referral ID Status Reason Start Date Expiration Date Visits Re quested Visits Authorized [id number] 1 1 Encounter Details Date Type Department Care Team (Late st Contact Info) Description 11/27/2024 1:30 PM CDT Home Care Visit [facility] [address] [place] [address] Lindsay Boyd RN [place] SN - OASIS START OF CARE Social History Tobacco Use Types Packs/Day Years Used Date Smoking Tobacco: Never Smokeless Tobacco: Never Comments No Sex and Gender Information Value Date Recorded Sex Assigned at Not on file Legal Sex Female 3:43 PM MEAT PUMPER Gender Identity Not on file Sexual Orientation Not on file documented as of this encounter Last Filed Vital Signs Vital Sign Reading Time Taken Comments Blood Pressure 98/50 11/27/2024 2:22 PM CDT Pulse - - Temperature 36.3 C (97.3 F) 11/27/2024 2:22 PM CDT Respiratory Rate - - Oxygen Saturation - - Inhaled Oxygen Concentration - - Weight 54.2 kg (119 lb 6.4 oz) 11/27/2024 2:22 P M CDT Height 142.2 cm (4' 8) 11/27/2024 2:22 PM CDT Body Mass Index 26.77 11/27/2024 2:22 PM CDT documented in this encounter Plan of Treatment Upcoming Encounters Date Type Department Care Team (Late st Contact Info) Description 12/04/2024 3:30 PM CDT Home Care Visit [address] [address] Joann Hudson, BRAKE HOLDER 12/09/2024 3:30 PM CDT Home Care Visit [address] [address] Joann Hudson, BRAKE HOLDER 12/10/2024 1:00 AM CDT Home Care Visit [address] [address] Lindsay Boyd, RN [place] 12/11/2024 2:30 PM CDT Home Care Visit [address] [address] Joann Hudson, BRAKE HOLDER 12/16/2024 1:00 AM CDT Home Care Visit [address] [address] Gillian June, PT [place] 12/17/2024 1:00 AM CDT Home Care Visit [address] [address] Lindsay Boyd RN [place] 12/18/2024 1:00 AM CDT Home Care Visit [address] [address] Joann Hudson, BRAKE HOLDER 12/23/2024 1:00 AM CDT Home Care Visit [address] [address] Joann Hudson, BRAKE HOLDER 12/24/2024 1:00 AM CDT Home Care Visit [address] [address] Lindsay Boyd, RN [place] 12/26/2024 1:00 AM CDT Home Care Visit [address] [address] Gillian June, PT [place] 12/31/2024 1:00 AM CDT Home Care Visit [address] [address] Lindsay Boyd RN [place] 01/07/2025 1:00 AM CDT Home Care Visit [address] [address] Lindsay Boyd RN [place] 01/14/2025 1:00 AM CDT Home Care Visit [address] [address] Lindsay Boyd RN [place] 01/21/2025 1:00 AM CDT Appointment [address] [address] Lindsay Boyd, RN [place] documented as of this encounter Visit Diagnoses Not on filedocumented in this encounter Care Teams Seasonal Customer Service Associate Relationship Specialty Start Date End Date David Coppola MD [address] [place] [address] [address] [place] [address] PCP - General Family Medicine 11/22/24 documented as of this encounter
[2024-12-04 08:45] VITALS: BP 122/53; PULSE 73; RESP 16; TEMP 36.6; O2SAT 98; BMI 26.0
--- NOTE | 2024-12-04 09:23 | SUR.PREOP ---
patient arrived to department with old medication list. patient stated i stopped taking my blood thinner. Patients blood thinner was not in their active list. Patient stated stopped last Sunday. Charge nurse was notified and a further investigation was done and showed patient isn't on a blood thinner. was notified and will proceed with procedure.
[2024-12-04 09:24] LABS: Glucose Point of Care 93 mg/dl (65-105)
[2024-12-04] MEDS: SODIUM CHLORIDE 0.9% IV 500 ML 10 ML IV CONT (09:35)
--- NOTE | 2024-12-04 09:36 | PM.IMHP ---
H&P: [facility] History of Present Illness Date/Time: 12/04/24 09:36 Chief Complaint: History of melena Narrative: the patient has chronic hepatitis-B on treatment with tenofovir alafenamide 25 mg q.d., and is currently on hemodialysis. Being on aspirin and Plavix, had an episode of melena 1 month ago which lasted for about 4-5 days. She was seen in our office and started on pantoprazole 40 mg b.i.d.. her stools are currently normal. She is referred for EGD. Her last EGD was in 2022 finding a benign cardia polyp and gastritis, no ulcer or neoplasm. 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 Spinal stenosis at L4-L5 level High-grade central canal stenosis noted on MRI February 2017 Pulmonary hypertension Echocardiogram August 2019: EF 65-70 %, indeterminate left ventricular diastolic function, mild biatrial enlargement, mild mitral valve regurgitation, moderate tricuspid regurgitation, mild pulmonary hypertension with RVSP of 39 Hiatal hernia Thoracic ascending aortic aneurysm 4.[address] scan from August 2019 Anemia of chronic disease Megaloblastic anemia Paroxysmal atrial fibrillation Type 2 diabetes mellitus Hemoglobin A1c was 6.6 in July 2019. Hypertension Osteoporosis Hyperlipidemia AV fistula Left upper extremity End stage renal disease on dialysis Dialysis days are Sunday, Sunday, and Sunday. She is on the transplant list at [place]. Osteoarthritis of both knees Staphylococcal septicemia (~2013) Closed fracture of lateral portion of right tibial plateau (~2014) Surgical History Surgical History (System 11/11/24 @ 09:04 by Pau Mcnamara) Amputated toe of left foot History of bilateral cataract extraction Amputation at midfoot 5th digit right footAnd the great toe on the left History of arthroplasty of right ankle Presence of Watchman left atrial appendage closure device History of arthroscopy (~12/07/12) wrist History of colonoscopy (~12/02/15) History of knee replacement (~2015) right Family History Family History (System 11/11/24 @ 09:04 by Pau Mcnamara) Father Hypertension Heart disease Mother Diabetes mellitus Hypertension Tobacco dependence Lung cancer Sibling Heart disease Social History Social History (System 11/11/24 @ 09:04 by Pau Mcnamara) Social History: The patient is and lives in [place]. She is originally from [place]. 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 She has 2 daughters who live in [place]. She has 1 son who lives in [facility] . She designates her daughters as her surrogate decision makers. She is a lifelong nonsmoker. No alcohol or drug abuse. Primary care physician: Dr. David Coppola Code status: Full code Smoking status: Never smoker Second hand tobacco smoke exposure: No Alcohol intake: never Substance use: never Substance use type: does not use Do You Feel Safe in your Home?: Yes Lack of Transportation: No Lack of Food: Never True Current Housing: I Do Not Have Housing Concerned About Future Housing: No Difficulty Paying Gas/Electric Bills: No Difficulty Paying for Meds: No Currently Unemployed: No Education: High School Diploma/GED Difficulty w/ Childcare or Family Care: No Gender identity (if verbalized by the patient): Female Spiritual care concerns: No Agree to blood products: Yes Meds Home Medications and Allergies Home Medications ?Medication ?Instructions ?Recorded ?Confirmed ?Type acetaminophen 500 mg tablet See Rx Instructions PO Q4H PRN Pain 02/20/20 11/28/24 History (Acetaminophen Extra Strength) blood sugar diagnostic #500 ea 07/18/21 09/12/24 Rx atorvastatin 40 mg tablet 40 mg PO DAILY 10/25/21 12/04/24 History vitamin B complex and vitamin C 1 cap PO DAILY 10/25/21 12/04/24 History no.20-folic acid 1 mg capsule (Renal Caps) hortencia strickland #1 ea 01/11/23 09/12/24 Rx denosumab 60 mg/mL subcutaneous 60 mg subcut [id number] #1 mL 06/01/23 12/04/24 Rx syringe (Prolia) liraglutide 0.6 mg/0.1 mL (18 mg/3 1.2 mg subcut HS 06/06/23 12/04/24 History mL) subcutaneous pen injector (Victoza 2-Agustín) insulin degludec 100 unit/mL (3 10 unit (0.1 mL) subcut HS #15 mL 06/25/23 12/04/24 Rx mL) subcutaneous pen (Tresiba FlexTouch U-100 insulin) Assited gait device #1 ea 08/23/23 09/12/24 Rx clotrimazole 1 % topical cream 1 applic topical Q12H 09/27/23 12/04/24 History (Antifungal (clotrimazole)) lidocaine-prilocaine 2.5 %-2.5 % 1 applic topical ONCE 09/27/23 12/04/24 History topical cream dicyclomine 10 mg capsule See Rx Instructions .Route 02/12/24 12/04/24 Rx .COMPLEX #60 caps pantoprazole 40 mg tablet,delayed 40 mg PO Q12HR #60 tabs 06/16/24 12/04/24 Rx release ergocalciferol (vitamin D2) 1,250 See Rx Instructions .Route 06/26/24 12/04/24 Rx mcg (50,000 unit) capsule .COMPLEX #13 caps trazodone 50 mg tablet 100 mg (2 x 50 mg) PO QHS #180 tabs 06/26/24 12/04/24 Rx sitagliptin phosphate 100 mg 100 mg PO DAILY #90 tabs 08/13/24 12/04/24 Rx tablet (Januvia) pen needle, diabetic 32 gauge x #100 ea 10/06/24 Rx 5/32 biotin 5 mg capsule 5 mg PO DAILY 10/08/24 12/04/24 History blood sugar diagnostic #500 ea 10/14/24 Rx carvedilol 12.5 mg tablet (Coreg) 6.25 mg PO BID 10/16/24 12/04/24 History lisinopril 10 mg tablet 10 mg PO DAILY 10/16/24 12/04/24 History tenofovir alafenamide 25 mg tablet 25 mg PO DAILY #90 tabs 10/16/24 12/04/24 Rx Allergies Allergy/AdvReac Type Severity Reaction Status Date / Time cephalexin Allergy Mild Rash Verified 12/04/24 08:53 enalapril Allergy Unknown cough Verified 12/04/24 08:53 pioglitazone Allergy Unknown Unknown Verified 12/04/24 08:53 cefazolin AdvReac Mild nausea/dizz Verified 12/04/24 08:53 iness tramadol AdvReac Unknown hallucinati Verified 12/04/24 08:53 ons gabapentin AdvReac Hallucinati Verified 12/04/24 08:53 ng Vital Signs Vital Signs - 24 hr 12/04/24 08:45 Temperature 97.9 F Pulse Rate 73 Respiratory Rate 16 Blood Pressure 122/53 L Pulse Oximetry 98 Oxygen Delivery Room Air Exam Const: General: cooperative and healthy appearing Resp: Effort & Inspection: normal respiratory effort and able to speak in complete sentences Auscultation: clear to auscultation bilaterally Cardio: Rate: regular rate Rhythm: regular rhythm GI: Inspection: normal to inspection GI Palp: No No hepatosplenomegaly present Auscultation: normal bowel sounds Rectal Exam: deferred Skin: General skin exam: normal color Psych: Appearance: grossly normal Mental Status: mental status grossly normal Assessment and Plan Assessment and plan (1) Dark stools: Code(s): R19.5 - Other fecal abnormalities Status: Acute Assessment and Plan: The patient is deemed a good candidate for the procedure. Consent signed. Will proceed.
--- NOTE | 2024-12-04 09:41 | P.PNAN_ITS ---
Anes - Initial Pre Proc Eval Procedure: Operation Date: 12/04/24 10:00 Proposed Procedures p Esophagogastroduodenoscopy - Edin Zhu MD Date/Time: 12/04/24 09:41 Surgeon: Edin Zhu MD Pre Op Diagnosis: Melena Patient Data Age: 79 Gender: F Height: 1.42 m Weight: 52.7 kg Last Vital Signs Temp 97.9 F 12/04/24 08:45 Pulse 73 12/04/24 08:45 Resp 16 12/04/24 08:45 BP 122/53 L 12/04/24 08:45 Pulse Ox 98 12/04/24 08:45 O2 Del Method Room Air 12/04/24 08:45 Allergies Allergy/AdvReac Type Severity Reaction Status Date / Time cephalexin Allergy Mild Rash Verified 12/04/24 08:53 enalapril Allergy Unknown cough Verified 12/04/24 08:53 pioglitazone Allergy Unknown Unknown Verified 12/04/24 08:53 cefazolin AdvReac Mild nausea/dizz Verified 12/04/24 08:53 iness tramadol AdvReac Unknown hallucinati Verified 12/04/24 08:53 ons gabapentin AdvReac Hallucinati Verified 12/04/24 08:53 ng Home Medications ?Medication ?Instructions ?Recorded ?Confirmed ?Type acetaminophen 500 mg tablet See Rx Instructions PO Q4H PRN Pain 02/20/20 11/28/24 History (Acetaminophen Extra Strength) blood sugar diagnostic #500 ea 07/18/21 09/12/24 Rx atorvastatin 40 mg tablet 40 mg PO DAILY 10/25/21 12/04/24 History vitamin B complex and vitamin C 1 cap PO DAILY 10/25/21 12/04/24 History no.20-folic acid 1 mg capsule (Renal Caps) hortencia strickland #1 ea 01/11/23 09/12/24 Rx denosumab 60 mg/mL subcutaneous 60 mg subcut [id number] #1 mL 06/01/23 12/04/24 Rx syringe (Prolia) liraglutide 0.6 mg/0.1 mL (18 mg/3 1.2 mg subcut HS 06/06/23 12/04/24 History mL) subcutaneous pen injector (Victoza 2-Agustín) insulin degludec 100 unit/mL (3 10 unit (0.1 mL) subcut HS #15 mL 06/25/23 12/04/24 Rx mL) subcutaneous pen (Tresiba FlexTouch U-100 insulin) Assited gait device #1 ea 08/23/23 09/12/24 Rx clotrimazole 1 % topical cream 1 applic topical Q12H 09/27/23 12/04/24 History (Antifungal (clotrimazole)) lidocaine-prilocaine 2.5 %-2.5 % 1 applic topical ONCE 09/27/23 12/04/24 History topical cream dicyclomine 10 mg capsule See Rx Instructions .Route 02/12/24 12/04/24 Rx .COMPLEX #60 caps pantoprazole 40 mg tablet,delayed 40 mg PO Q12HR #60 tabs 06/16/24 12/04/24 Rx release ergocalciferol (vitamin D2) 1,250 See Rx Instructions .Route 06/26/24 12/04/24 Rx mcg (50,000 unit) capsule .COMPLEX #13 caps trazodone 50 mg tablet 100 mg (2 x 50 mg) PO QHS #180 tabs 06/26/24 12/04/24 Rx sitagliptin phosphate 100 mg 100 mg PO DAILY #90 tabs 08/13/24 12/04/24 Rx tablet (Januvia) pen needle, diabetic 32 gauge x #100 ea 10/06/24 Rx 5/32 biotin 5 mg capsule 5 mg PO DAILY 10/08/24 12/04/24 History blood sugar diagnostic #500 ea 10/14/24 Rx carvedilol 12.5 mg tablet (Coreg) 6.25 mg PO BID 10/16/24 12/04/24 History lisinopril 10 mg tablet 10 mg PO DAILY 10/16/24 12/04/24 History tenofovir alafenamide 25 mg tablet 25 mg PO DAILY #90 tabs 10/16/24 12/04/24 Rx Laboratory Tests 12/04/24 09:18 POC Capillary Glucose 93 mg/dl (65-105) Patient hx anesthesia problems: none Family hx anesthesia problems: none Results Review: All pre-operative results and documents have been reviewed as part of the pre- operative evaluation. 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 Spinal stenosis at L4-L5 level High-grade central canal stenosis noted on MRI February 2017 Pulmonary hypertension Echocardiogram August 2019: EF 65-70 %, indeterminate left ventricular diastolic function, mild biatrial enlargement, mild mitral valve regurgitation, moderate tricuspid regurgitation, mild pulmonary hypertension with RVSP of 39 Hiatal hernia Thoracic ascending aortic aneurysm 4.[address] scan from August 2019 Anemia of chronic disease Megaloblastic anemia Paroxysmal atrial fibrillation Type 2 diabetes mellitus Hemoglobin A1c was 6.6 in July 2019. Hypertension Osteoporosis Hyperlipidemia AV fistula Left upper extremity End stage renal disease on dialysis Dialysis days are Sunday, Sunday, and Sunday. She is on the transplant list at [facility]. Osteoarthritis of both knees Staphylococcal septicemia (~2013) Closed fracture of lateral portion of right tibial plateau (~2014) Surgical History Surgical History (System 11/11/24 @ 09:04 by Pau Mcnamara) Amputated toe of left foot History of bilateral cataract extraction Amputation at midfoot 5th digit right footAnd the great toe on the left History of arthroplasty of right ankle Presence of Watchman left atrial appendage closure device History of arthroscopy (~12/07/12) wrist History of colonoscopy (~12/02/15) History of knee replacement (~2015) right Family History Family History (System 11/11/24 @ 09:04 by Pau Mcnamara) Father Hypertension Heart disease Mother Diabetes mellitus Hypertension Tobacco dependence Lung cancer Sibling Heart disease Social History Social History (System 11/11/24 @ 09:04 by Pau Mcnamara) Social History: The patient is and lives in [place]. She is originally from [place]. 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 She has 2 daughters who live in [place]. She has 1 son who lives in [facility] [place] . She designates her daughters as her surrogate decision makers. She is a lifelong nonsmoker. No alcohol or drug abuse. Primary care physician: Dr. David Coppola Code status: Full code Smoking status: Never smoker Second hand tobacco smoke exposure: No Alcohol intake: never Substance use: never Substance use type: does not use Do You Feel Safe in your Home?: Yes Lack of Transportation: No Lack of Food: Never True Current Housing: I Do Not Have Housing Concerned About Future Housing: No Difficulty Paying Gas/Electric Bills: No Difficulty Paying for Meds: No Currently Unemployed: No Education: High School Diploma/GED Difficulty w/ Childcare or Family Care: No Gender identity (if verbalized by the patient): Female Spiritual care concerns: No Agree to blood products: Yes Anes - Eval Final PreProcedure Day of Procedure 12/04/24 09:41 Patient weight: normal Heart: regular rate and rhythm Lungs: clear to auscultation Airway: Mallampati scale class II Neurological: alert and oriented Last oral intake: >/= 8 hours ASA classification: III Emergent: no Anesthetic plan: proceed Anesthesia type and monitoring: general GIVS and standard monitoring Results Review: All pre-operative results and documents have been reviewed as part of the pre- operative evaluation. Informed Consent: The patient's anesthetic plan and its attendant risks and benefits were discussed with the patient/family/POA. Questions were solicited and answers provided to the satisfaction of the patient/family/POA.
[2024-12-04 10:16] VITALS: BP 139/66; PULSE 80; RESP 23; O2SAT 100
[2024-12-04 10:26] VITALS: BP 127/63; PULSE 75; RESP 26; O2SAT 100
[2024-12-04 10:36] VITALS: BP 127/62; PULSE 69; RESP 24; O2SAT 100
[2024-12-04 10:40] LABS: Glucose Point of Care 119 mg/dl (65-105)
== END 2024-12-04 10:54 | disposition home or self-care (01) ==
PROVIDERS: PCP Family Medicine; Visit Provider Internal Medicine Gastroenterology
PROC: 0DJ08ZZ Inspection of Upper Intestinal Tract, Via Natural or Artificial Opening Endoscopic (ICD-10-PCS; CPT 43235; principal; 2024-12-04 10:00)
DX: K29.30 Chronic superficial gastritis without bleeding (principal); K44.9 Diaphragmatic hernia without obstruction or gangrene; K21.9 Gastro-esophageal reflux disease without esophagitis; E78.5 Hyperlipidemia, unspecified; I12.0 Hypertensive chronic kidney disease with stage 5 chronic kidney disease or end stage renal disease; N18.6 End stage renal disease; K58.9 Irritable bowel syndrome, unspecified; E11.9 Type 2 diabetes mellitus without complications; M81.0 Age-related osteoporosis without current pathological fracture; M17.0 Bilateral primary osteoarthritis of knee; I48.0 Paroxysmal atrial fibrillation; B18.1 Chronic viral hepatitis B without delta-agent; M48.061 Spinal stenosis, lumbar region without neurogenic claudication; I27.20 Pulmonary hypertension, unspecified; D63.8 Anemia in other chronic diseases classified elsewhere; D53.1 Other megaloblastic anemias, not elsewhere classified; Z79.85 Long-term (current) use of injectable non-insulin antidiabetic drugs; Z79.4 Long term (current) use of insulin; Z79.84 Long term (current) use of oral hypoglycemic drugs; Z79.82 Long term (current) use of aspirin; Z98.890 Other specified postprocedural states; Z89.422 Acquired absence of other left toe(s); Z99.2 Dependence on renal dialysis; Z86.0100 Personal history of colon polyps, unspecified; Z87.19 Personal history of other diseases of the digestive system; Z86.79 Personal history of other diseases of the circulatory system; Z80.1 Family history of malignant neoplasm of trachea, bronchus and lung; Z82.49 Family history of ischemic heart disease and other diseases of the circulatory system
CPT/HCPCS: 43235; 82948; J2003; J2704; J7040

== ENCOUNTER 2025-02-11 12:59 | Emergency (ER) | payer MEDICARE, SELFPAY ==
--- NOTE | ~2025-02-11 | XR_ITS ---
XR chest 1V 02/11/2025 14:57 Indication: Weakness Procedure: AP view of the chest Comparison: 08/11/2024 Findings: Cardiomegaly. Mild interstitial edema. Right subclavian vascular stent present. There is a bilateral axillary stents. Impression: 1: Cardiomegaly with mild interstitial edema. Reviewed, dictated and finalized at location A. Impression: 1: Cardiomegaly with mild interstitial edema.
--- NOTE | ~2025-02-11 | CT_ITS ---
EXAMINATION: CT brain wo con DATE: 02/11/2025 14:50 INDICATION: Multiple falls. Weakness. TECHNIQUE: Computed tomography (CT) of the abdomen and pelvis was performed without intravenous contr ast. The dose-length product was 681.00 mGy-cm. Automated exposure control and iterative reconstruction technique were employed. COMPARISON: CT dated 08/07/2024. FINDINGS: Mild generalized atrophy. There is intracranial atherosclerosis. No ventriculomegaly or mid line shift. Basilar cisterns are patent. Paranasal sinuses and mastoids are pneumatized. No depressed skull fractures. Midline sagittal images demonstrate a normal corpus callosum and craniovertebral ju nction. There are scattered mild periventricular and subcortical white matter changes, most likely re lated to small vessel ischemic disease (microangiopathy). IMPRESSION: 1. No acute intracranial abnormality. Reviewed, dictated and finalized at location A.
--- OUTSIDE RECORDS SUMMARY | 2025-02-11 13:04 | XMS_ITS | Clinical Summary ---
Author Organization [facility] Address [address] [place] [address] Phone Care Team Providers Care Appliance Service Representative Name Role Phone David Coppola MD Primary Care Provider [phone] Allergies Active Allergy Reactions Criticality Noted Date [...] Comments Blood Pressure 71/53 09/01/2020 2:54 PM MERCHANDISING MANAGER 148 /36 Pulse 72 09/01/2020 2:54 PM MERCHANDISING MANAGER Temperature 36.4 C (97.6 F) 09/01/2020 2:54 PM MERCHANDISING MANAGER Respiratory Rate - - Oxygen Saturation 97% 09/01/2020 2:54 PM MERCHANDISING MANAGER Inhaled Oxygen Concentration - - Weight 56.6 kg (124 lb 11.2 oz) 09/01/2020 2:54 PM MERCHANDISING MANAGER Height 144.8 cm (4' 9) 09/01/2020 2:54 PM MERCHANDISING MANAGER Body Mass Index 26.98 09/01/2020 2:54 PM MERCHANDISING MANAGER Plan of Treatment Health Maintenance Due Date [...] 1-dose 75+ series) 2021 INFLUENZA VACCINE (#1) 2025 04/08/2017 PNEUMOCOCCAL VACCINE 50+ YEARS Completed 1 , 04/09/2014, 04/09/2014 Insurance MEDICAID [facility] [id number] Care Teams Appliance Service Representative Relationship Specialty Start Date End Date David Coppola MD PCP - General Family Practice 05/14/20
--- OUTSIDE RECORDS SUMMARY | 2025-02-11 13:04 | XMS_ITS | Clinical Summary ---
Author Organization [facility] [address] Address [address] [place] [address] Care Team Providers Care Helpdesk Specialist Name Role Phone David Coppola MD Primary Care Provider [phone] Jacob Suarez MD Unavailable [phone] Ros Seay MD Unavailable [phone] Abdifatah Villa MD Unavailable Issa Clements MD Unavailable [phone] Allergies Active Allergy Reactions Criticality Noted Date Comments Cephalexin Unknown 10/16/2019 Pt does not know. Gabapentin Anaphylaxis,Dizzines s, Hallucinations High 05/24/2020 Sulfamethoxazole-Trim ethoprim Anaphylaxis High 08/09/2020 Medications liraglutide (VICTOZA) 0.6 mg/0.1 mL (18 mg/3 mL) injectionIndicat ions:type 2 diabetes mellitus Inject 1.2 mg under the skin nightly Indications: type 2 diabetes mellitus Active ergocalciferol (VITAMIN D) 50,000 unit capsule Take 1 capsule (50,000 Units total) by mouth once a week On Sunday 4 Active acetaminophen 500 mg capsule Take 2 capsules (1,000 mg total) by mouth every 6 (six) hours as needed for pain Active SITagliptin (JANUVIA) 100 mg tabletIndication s:type 2 diabetes mellitus Take 1 tablet (100 mg total) by mouth daily Active Tresiba FlexTouch U-100 100 unit/mL (3 mL) insulin pen Inject 0.1 mL (10 Units total) under the skin nightly 0 Active clotrimazole 1 % cream Apply topically 2 (two) times a day as needed Active traZODone (DESYREL) 50 mg tablet Take 2 tablets (100 mg total) by mouth nightly 2 Active Prolia 60 mg/mL syringe Q 6 months 2 Active vitamin B complex with C-folic acid (NEPHROCAP) 1 mg capsuleIndicatio ns:Vitamin Deficiency Prevention Take 1 capsule by mouth daily Active carvediloL (COREG) 6.25 mg tablet Take 1 tablet (6.25 mg total) by mouth 2 (two) times a day with meals Active dicyclomine (BENTYL) 10 mg capsule Take 1 capsule (10 mg total) by mouth Active lisinopriL (PRINIVIL,ZESTRI L) 10 mg tablet Take 1 tablet (10 [...] Active oxyCODONE (ROXICODONE) 5 mg immediate release tabletIndication s:Pain Take 0.5 tablets (2.5 mg total) by mouth every 4 (four) hours as needed (severe pain) 5 tablet 5 Active Additional Information Patient not taking.Reported on 01/13/2025 aspirin 81 mg chewable tablet Take 1 tablet (81 mg total) by mouth daily 30 tablet 1 5 11/23/19 26 Active Additional Information Patient not taking.Reported on 01/13/2025 clopidogreL (PLAVIX) 75 mg tablet Take 1 tablet (75 mg total) by mouth daily 30 tablet 1 5 11/23/19 26 Active Additional Information Patient not taking.Reported on 01/13/2025 atorvastatin (LIPITOR) 40 mg tabletIndication s:PAD (peripheral artery disease) Take 1 tablet by mouth once daily 90 tablet 5 Active omega-3 fatty acids-fish oil 300-1,000 mg capsule Take 2 capsules (2 g total) by mouth daily Active Active Problems Problem Noted Date [...] GIB. Patients daughter reports recent admission to [facility] due to concern for GIB. Patient followed up with her outpatient GI. Planning for EGD at the end of November - continue PPI. Assessment & Plan (11/21/2024 3:03 PM CDT): History of peptic ulcer with GIB. Patients daughter reports recent admission to [facility] due to concern for GIB. Patient followed up with her outpatient GI. Planning for EGD at the end of November - closely monitor for bleeding due to starting asa and Plavix as above - continue PPI Assessment & Plan (08/28/2024 1:08 PM CHAR FILTER OPERATOR HELPER): History of peptic ulcer with GIB Denies sx continue PPI Heart valve disease 04/06/2023 History of GI bleed 02/04/2023 Bradycardia 09/29/2022 Bleeding 09/29/2022 Idiopathic hypotension 09/13/2021 Complication of arteriovenous dialysis fistula 0 09/07/2020 Type 2 diabetes mellitus wit h diabetic peripheral angiopathy and gangrene, without long-term current use of insulin 08/21/2020 Assessment & Plan (08/28/2024 1:05 PM CHAR FILTER OPERATOR HELPER): Home regimen Januvia, tresiba 10 and Victoza. Reviewed PCP records noted hypoglycemia last hospital admit with basal insulins continued Will continue januvia and hold tresiba and victoza SSI Family history of ischemic h eart disease and other diseases of the circulatory system 11/27/2019 Critical limb ischemia of right lower extremity 10/14/2019 Overview (10/14/2019): Added automatically from request for surgery [id number] Assessment & Plan (08/28/2024 12:59 PM CHAR FILTER OPERATOR HELPER): S/p uncomplicated balloon angioplasty of the [...] (10/14/2019): Added automatically from request for surgery [id number] Presence of Watchman left atrial appendage closu re device 08/29/2018 Atrial fibrillation, permanent 06/13/2018 Overview (06/13/2018): Added automatically from request for surgery [id number] Assessment & Plan (11/22/2024 1:43 PM CDT): Rate controlled and s/p Watchman due to prior GIB. - continue home coreg as below. Assessment & Plan (11/21/2024 3:39 PM CDT): Rate controlled and s/p Watchman due to prior GIB. - continue home coreg as below Assessment & Plan (08/28/2024 1:03 PM CHAR FILTER OPERATOR HELPER): Follows with [facility] cardiology. Rate controlled and s/p Watchman due to prior severe GIB Recently stopped coreg due to bradycardia ASA and plavix to start per IR recs post revascularization Assessment & Plan (07/24/2018 9:29 AM CHAR FILTER OPERATOR HELPER): Continue coreg. S/p Watchmann DAVIDA occluder implant for future deescalate anticoagulation. Continue apixiban for now as per EP. Post procedure CXR. 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 PAD (peripheral artery disease) 03/15/2018 Overview (03/15/2018): Added automatically from request for surgery [id number] Assessment & Plan (11/22/2024 1:43 PM CDT): [...] (03/15/2018): Added automatically from request for surgery [id number] Ischemia of foot 03/15/2018 Overview (03/15/2018): Added automatically from request for surgery [id number] Noncompliance 02/24/2018 Essential hypertension 11/10/2017 Assessment & Plan (11/22/2024 1:43 PM CDT): On lisinopril and coreg at home, holding today for lower BP. Resume as able. Assessment & Plan (11/21/2024 3:03 PM CDT): Continue home lisinopril and coreg Assessment & Plan (07/24/2018 9:27 AM CHAR FILTER OPERATOR HELPER): Continue home meds and dialysis. Hyperlipidemia [...] today Assessment & Plan (08/29/2024 4:04 PM CHAR FILTER OPERATOR HELPER): Routine M/W/F r brachial fistula (has required multiple dilations last at [facility] 07/2024 Feeling well post procedure denies dyspnea. Renal consulted for HD prior to discharge Assessment & Plan (07/24/2018 9:26 AM CHAR FILTER OPERATOR HELPER): HD as per renal consult. Resume [...] Resolved Date Coronary artery disease invo lving [place] coronary artery of [place] heart without angina pectoris 03/07/2021 03/07/2021 Preoperative cardiovascular examination 03/07/2021 09/29/2022 Hypoxia 11/27/2019 04/03/2023 Toe ulcer, left, with unspecified severity 09/16/2018 03/07/2021 Overview (09/16/2018): Added automatically from request for surgery [id number] Cough 11/10/2017 03/07/2021 Lumbago 06/04/2017 03/07/2021 Pain of lower extremity 06/04/2017 09/2 12/2022 Chronic anticoagulation 08/22/2016 06/0 10/2018 Overview (10/12/2016): Chronic anticoagulation Stage 4 chronic kidney disease 04/21/2014 04/03/2023 Pain in joint 03/04/2014 04/03/2023 Paroxysmal atrial fibrillation 05/06/2024 ESRD (end stage renal disease) (CMS/HCC) 03/07/2021 Pre-transplant evaluation fo r kidney transplant 04/03/2023 Encounters Date Type Department Care Team Description 01/13/2025 1:30 PM CDT Office Visit [facility] Cardiology at [address] [place] [address] David Rodriguez MD Atrial fibrillation, permanent (HCC) (Primary Dx) 01/06/2025 Orders Only [facility] [address] [place] [address] Alena Fontenot RN PAD (peripheral artery disease) (Primary Dx) 01/05/2025 Telephone [facility] [address] [place] [address] Alena Fontenot RN 12/23/2024 9:02 AM CDT - 12/23/2024 11:59 PM CDT Hospital Encounter [facility] [id number] [place] [address] Atherosclerosis of [place] arteries of extremities with intermittent claudication, right leg; Atherosclerosis of [place] arteries of extremities with rest pain, bilateral legs (HCC) Discharge Disposition: Discharge to home or self care 12/23/2024 9:02 AM CDT - 12/23/2024 11:59 PM CDT Hospital Encounter [facility] [id number] [place] [address] Atherosclerosis of [place] arteries of extremities with rest pain, bilateral legs (HCC); Atherosclerosis of [place] arteries of extremities with rest pain, left leg (HCC) Discharge Disposition: Discharge to home or self care 11/28/2024 Telephone [facility] [address] [place] [address] Alena Fontenot, RN 11/27/2024 Orders Only [facility] [address] [place] [address] Alena Fontenot, RN Atherosclerosis of [place] arteries of extremities with intermittent claudication, right leg (Primary Dx); Atherosclerosis of [place] arteries of extremities with rest pain, bilateral legs (HCC); Atherosclerosis of [place] arteries of extremities with rest pain, left leg (HCC) 11/27/2024 Telephone [facility] [address] [place] [address] Alena Fontenot RN 11/21/2024 12:00 PM CDT - 11/22/2024 4:55 PM CDT Hospital [address] [address] Shahnaz Heredia MD Guevara, Carlos Javier, MD Pain and swelling of right lower extremity (Primary Dx); Non-healing wound of right lower extremity; Pain and swelling of lower extremity, right; PAD (peripheral artery disease) Discharge Disposition: Discharge to home or self care 11/21/2024 6:00 AM CDT Office Visit [address] 1[address] [place] [address] PAD (peripheral artery disease) 11/21/2024 Telephone Radiology 1 [place] [address] Hollie Martinez PA 11/19/2024 Telephone [facility] Sched[facility] [address] [place] [address] Cynthia Blankenship MD Scheduling Appointments 11/19/2024 Telephone [facility] [address] [place] [address] Yaritza Golden RN 11/18/2024 Telephone [facility] [address] [place] [address] Tomy Reynolds RN 11/17/2024 Orders Only [facility] [address] [place] [address] Alena Fontenot, ABENA PAD (peripheral artery disease) (Primary Dx) 11/17/2024 Telephone [facility] [address] [place] [address] Alena Fontenot, ABENA 11/11/2024 Telephone [facility] [address] [place] [address] Alena Fontenot, ABENA from Last 3 Months Immunizations Immunization Administration [...] by TW Conv) Hypertension ESRD on dialysis Type 2 diabetes mellitus History of transfusion Arthritis History of hemodialysis M, W, F DEMETRIUS AV fistula Gastric ulceration Hyperlipidemia Peripheral vascular disease ESRD on dialysis PAD (peripheral artery disease) Critical ischemia of [...] Hx Relation Name Status Comments Brother of DC age 48 Father of DC age 47 Mother Social History Tobacco Use [...] often do you attend chur ch or baptist services? 1 to 4 times per year 09/04/2019 Do you belong to any clubs o r organizations such as worship groups, unions, fraternal or athletic groups, or [...] on file Legal Sex Female 12:39 PM CHAR FILTER OPERATOR HELPER Gender Identity Not on file Sexual Orientation Not on file Obstetrics History Last Filed Vital Signs Vital Sign Reading Time Taken Comments Blood Pressure 122/62 01/13/2025 1:22 PM CDT Pulse 70 01/13/2025 1:22 PM CDT Temperature 36.6 C (97.9 F) 11/22/2024 11:50 AM CDT Respiratory Rate 20 11/22/2024 11:50 AM CDT Oxygen Saturation 90% 01/13/2025 1:22 PM CDT Inhaled Oxygen Concentration - - Weight 49.4 kg (109 lb) 01/13/2025 1:22 PM CDT Height 144.8 cm (4' 9) 01/13/2025 1:22 PM CDT Body Mass Index 23.59 01/13/2025 1:22 PM CDT Plan of Treatment Scheduled Procedures [...] 04/10, 07/18/2018, Additional history exists Influenza Vaccine (#1) 2025 0, 03/22/2018, 04/08/2017, Additional history exists Lipid Panel 11/21/2025 11/21/2024, 08/10, 09/26/2022, Additional history exists Fall Risk Assessment 11/22/2025 11/22/2024, 09/17/19 19 eGFR 11/22/2025 11/22/2024, 11/06, 11/21/2024, Additional history exists Hepatitis B Screening Completed 04/26/2018 Pneumococcal vaccine 65+ Completed 05/08/2019, 08/2013 Hepatitis C Screening Completed 08/19/2020 , 09/04/2019, 05/08/2019 Medical Devices Implanted Type Area Golf Coach Device Identifier Shelf Expiration Date Model / Serial / Lot Device Clsr 27mm Davida Watchman - [id number] - [id number] Implanted:Qty : 1 on 07/23/2018 by Mike Mccloud MD PhD at [facility] Other - see comments Left: Heart [employer] 12/13/2020 27MM-DAVIDA CLOSURE DEVICE / [id number] / [id number] Description:Left atrial appe ndage closure device Watchman Daig Breanna/[employer] [id number] Angio-Seal Vip Bon[place]k-Plus 6fr .035in 70cm Hemostatic Latex Free - [id number] Implanted:Qty : 1 on 03/20/2018 by Abdifatah Villa MD at [facility] Daig Breanna[employer] 12/06/2018 [id number] / / [id number] Device Davida Watchman Procedure - [id number] Implanted:Qty : 1 on 07/23/2018 by Mike Mccloud MD PhD at [facility] [employer] [id number] 1 - 3 PC / / Description:1 Device Daig Breanna[employer] [id number] Angio-Seal Vip [place]-Plus 6fr .035in 70cm Hemostatic Latex Free - [id number] Implanted:Qty : 1 on 09/26/2018 by Abdifatah Villa MD at [facility] Daig Breanna[employer] 06/07/2019 [id number] / / [id number] Daig Breanna [id number] Device Closure Angio-Seal Vip Bondek-Plus Polyglyd L70 Cm Od6 Fr Odsec.035 In Vascular - [id number] Implanted:Qty : 1 on 10/16/2019 by Abdifatah Villa MD at [facility]/[employer] [id number] / / [employer] Device 6fr Closure Celt Acd Vascular Sterile Latex Free Disposable [facility] - [id number] Implanted:Qty : 1 on 08/28/2024 at [facility] [employer] 01/01/2027 KCLT- / / [id number] Angio-Seal Vip 6fr Closere Device [id number] - [id number] Implanted:Qty : 1 on 11/21/2024 at [facility] [employer] 03/26/2025 [id number] / / [id number] Procedures Procedure Name Priority Date/Time Associated Diagnosis Comments VL US ARTERIAL DUPLEX LOWER EXTREMITY BILATERAL Schedule Routine, Read Routine (OP Routine) 12/23/2024 11:51 AM CDT Atherosclerosis of [place] arteries of extremities with rest pain, bilateral legs (HCC) Atherosclerosis of [place] arteries of extremities with rest pain, left leg (HCC) US ARTERIAL DOPPLER LOWER EXTREMITY BILATERAL Schedule Routine, Read Routine (OP Routine) 12/23/2024 11:17 AM CDT Atherosclerosis of [place] arteries of extremities with intermittent claudication, right leg Atherosclerosis of [place] arteries of extremities with rest pain, bilateral legs (HCC) POCT GLUCOSE DEVICE Routine 11/22/2024 1 2:10 [...] 6:31 AM CDT PAD (peripheral artery disease) HEPATITIS C ANTIBODY Routine 08/19/2020 12:07 PM CHAR FILTER OPERATOR HELPER ESRD (end stage renal disease) ([facility]) HEMOGLOBIN A1C Routine 09/04/2019 12:14 AM CHAR FILTER OPERATOR HELPER from Last 3 Months or Most Recently Relevant to Health Maintenance Results * US Arterial Duplex Lower Extremity Bilateral (12/23/2024 11:51 AM CDT) Anatomical Region Laterality Modality Vascular Bilateral Ultrasound 12/23/2024 4:42 PM CDT Impressions 12/23/2024 4:42 PM CDT RIGHT LEG: Favorable response to prior revascularization procedure, but overall patent right lower extremity vasculature, and now multiphasic flow through the runoff vessels. MELISSA is measuring 0.60, which has intervally decreased compared to 0.84 in the prior exam from 10/30/2024. Hence, considering the improvement of the waveforms and duplex signal could be due to technical reasons. TBI 0.17, which has increased compared to 0.06 in the prior exam. LEFT LEG: Predominantly below the knee disease, with single vessel runoff to the peroneal artery, , and interval occlusion of the posterior and anterior tibialis arteries. MELISSA is 0.76, which has intervally decreased compared to 1.04 for the prior exam. TBI is 0.23. Electronically signed by: MD Blaise Simpson 12/23/2024 4:42 PM CDT EXAMINATION: BILATERAL LOWER EXTREMITY ARTERY DUPLEX WITH ABIS DATE: 12/23/2024 10:00 AM HISTORY: Atherosclerosis of [place] Arteries of Extremities with Rest Pain, Bilateral Leg COMPARISON: Procedure images from 11/21/2024, duplex from 10/30/2024 TECHNIQUE: Standard technique was employed for bilateral lower extremity arterial duplex with ABIs including grayscale and color Doppler images with spectral waveform analysis. FINDINGS: SITE WAVEFORM RT FEMORAL multiphasic RT P. FEMORAL multiphasic RT S. FEMORAL multiphasic, mildly increased velocity in the proximal segment RT POPLITEAL multiphasic RT POST TIBIAL multiphasic in the proximal segment, monophasic distally RT ANT TIBIAL multiphasic RT PERONEAL Occluded RT VIANNEY PED Monophasic LT FEMORAL multiphasic LT P. FEMORAL multiphasic LT S. FEMORAL multiphasic LT POPLITEAL multiphasic LT POST. TIBIAL Occluded LT ANT. TIBIAL Occluded LT PERONEAL Monophasic LT VIANNEY PED Monophasic SITE PRESSURE INDEX RT BRACHIAL - RT ANKLE PT 69 0.44 RT ANKLE DP 93 0.60 RT DIGIT 26 0.17 LT BRACHIAL 156 LT ANKLE PT 111 0.71 LT ANKLE DP 118 0.76 LT DIGIT 36 0.23 Procedure Note Cezar Sanchez MD - 12/23/2024 EXAMINATION: BILATERAL LOWER EXTREMITY ARTERY DUPLEX WITH ABIS DATE: 12/23/2024 10:00 AM HISTORY: Atherosclerosis of [place] Arteries of Extremities with Rest Pain, Bilateral Leg COMPARISON: Procedure images from 11/21/2024, duplex from 10/30/2024 TECHNIQUE: Standard technique was employed for bilateral lower extremity arterial duplex with ABIs including grayscale and color Doppler images with spectral waveform analysis. FINDINGS: SITE WAVEFORM RT FEMORAL multiphasic RT P. FEMORAL multiphasic RT S. FEMORAL multiphasic, mildly increased velocity in the proximal segment RT POPLITEAL multiphasic RT POST TIBIAL multiphasic in the proximal segment, monophasic distally RT ANT TIBIAL multiphasic RT PERONEAL Occluded RT VIANNEY PED Monophasic LT FEMORAL multiphasic LT P. FEMORAL multiphasic LT S. FEMORAL multiphasic LT POPLITEAL multiphasic LT POST. TIBIAL Occluded LT ANT. TIBIAL Occluded LT PERONEAL Monophasic LT VIANNEY PED Monophasic SITE PRESSURE INDEX RT BRACHIAL - RT ANKLE PT 69 0.44 RT ANKLE DP 93 0.60 RT DIGIT 26 0.17 LT BRACHIAL 156 LT ANKLE PT 111 0.71 LT ANKLE DP 118 0.76 LT DIGIT 36 0.23 IMPRESSION: RIGHT LEG: Favorable response to prior revascularization procedure, but overall patent right lower extremity vasculature, and now multiphasic flow through the runoff vessels. MELISSA is measuring 0.60, which has intervally decreased compared to 0.84 in the prior exam from 10/30/2024. Hence, considering the improvement of the waveforms and duplex signal could be due to technical reasons. TBI 0.17, which has increased compared to 0.06 in the prior exam. LEFT LEG: Predominantly below the knee disease, with single vessel runoff to the peroneal artery, , and interval occlusion of the posterior and anterior tibialis arteries. MELISSA is 0.76, which has intervally decreased compared to 1.04 for the prior exam. TBI is 0.23. Electronically signed by: Cezar Antonio MD Anthony Gorman MD IMG US PROCEDURES Final Result * US MELISSA And Arterial Doppler Lower Extremity Bilateral (12/23/2024 11:17 AM CDT) Anatomical Region Laterality Modality Vascular Bilateral Ultrasound 12/23/2024 4:42 PM CDT Impressions 12/23/2024 4:42 PM CDT RIGHT LEG: Favorable response to prior revascularization procedure, but overall patent right lower extremity vasculature, and now multiphasic flow through the runoff vessels. MELISSA is measuring 0.60, which has intervally decreased compared to 0.84 in the prior exam from 10/30/2024. Hence, considering the improvement of the waveforms and duplex signal could be due to technical reasons. TBI 0.17, which has increased compared to 0.06 in the prior exam. LEFT LEG: Predominantly below the knee disease, with single vessel runoff to the peroneal artery, , and interval occlusion of the posterior and anterior tibialis arteries. MELISSA is 0.76, which has intervally decreased compared to 1.04 for the prior exam. TBI is 0.23. Electronically signed by: Cezar Antonio MD Narrative 12/23/2024 4:42 PM CDT EXAMINATION: BILATERAL LOWER EXTREMITY ARTERY DUPLEX WITH ABIS DATE: 12/23/2024 10:00 AM HISTORY: Atherosclerosis of [place] Arteries of Extremities with Rest Pain, Bilateral Leg COMPARISON: Procedure images from 11/21/2024, duplex from 10/30/2024 TECHNIQUE: Standard technique was employed for bilateral lower extremity arterial duplex with ABIs including grayscale and color Doppler images with spectral waveform analysis. FINDINGS: SITE WAVEFORM RT FEMORAL multiphasic RT P. FEMORAL multiphasic RT S. FEMORAL multiphasic, mildly increased velocity in the proximal segment RT POPLITEAL multiphasic RT POST TIBIAL multiphasic in the proximal segment, monophasic distally RT ANT TIBIAL multiphasic RT PERONEAL Occluded RT VIANNEY PED Monophasic LT FEMORAL multiphasic LT P. FEMORAL multiphasic LT S. FEMORAL multiphasic LT POPLITEAL multiphasic LT POST. TIBIAL Occluded LT ANT. TIBIAL Occluded LT PERONEAL Monophasic LT VIANNEY PED Monophasic SITE PRESSURE INDEX RT BRACHIAL - RT ANKLE PT 69 0.44 RT ANKLE DP 93 0.60 RT DIGIT 26 0.17 LT BRACHIAL 156 LT ANKLE PT 111 0.71 LT ANKLE DP 118 0.76 LT DIGIT 36 0.23 Procedure Note Cezar Sanchez MD - 12/23/2024 EXAMINATION: BILATERAL LOWER EXTREMITY ARTERY DUPLEX WITH ABIS DATE: 12/23/2024 10:00 AM HISTORY: Atherosclerosis of [place] Arteries of Extremities with Rest Pain, Bilateral Leg COMPARISON: Procedure images from 11/21/2024, duplex from 10/30/2024 TECHNIQUE: Standard technique was employed for bilateral lower extremity arterial duplex with ABIs including grayscale and color Doppler images with spectral waveform analysis. FINDINGS: SITE WAVEFORM RT FEMORAL multiphasic RT P. FEMORAL multiphasic RT S. FEMORAL multiphasic, mildly increased velocity in the proximal segment RT POPLITEAL multiphasic RT POST TIBIAL multiphasic in the proximal segment, monophasic distally RT ANT TIBIAL multiphasic RT PERONEAL Occluded RT VIANNEY PED Monophasic LT FEMORAL multiphasic LT P. FEMORAL multiphasic LT S. FEMORAL multiphasic LT POPLITEAL multiphasic LT POST. TIBIAL Occluded LT ANT. TIBIAL Occluded LT PERONEAL Monophasic LT VIANNEY PED Monophasic SITE PRESSURE INDEX RT BRACHIAL - RT ANKLE PT 69 0.44 RT ANKLE DP 93 0.60 RT DIGIT 26 0.17 LT BRACHIAL 156 LT ANKLE PT 111 0.71 LT ANKLE DP 118 0.76 LT DIGIT 36 0.23 IMPRESSION: RIGHT LEG: Favorable response to prior revascularization procedure, but overall patent right lower extremity vasculature, and now multiphasic flow through the runoff vessels. MELISSA is measuring 0.60, which has intervally decreased compared to 0.84 in the prior exam from 10/30/2024. Hence, considering the improvement of the waveforms and duplex signal could be due to technical reasons. TBI 0.17, which has increased compared to 0.06 in the prior exam. LEFT LEG: Predominantly below the knee disease, with single vessel runoff to the peroneal artery, , and interval occlusion of the posterior and anterior tibialis arteries. MELISSA is 0.76, which has intervally decreased compared to 1.04 for the prior exam. TBI is 0.23. Electronically signed by: Cezar Antonio MD Anthony Gorman MD IMG US PROCEDURES Final Result * (ABNORMAL) POCT glucose (11/22/2024 12:10 PM CDT) Glucose, POC 231(H) 70 - 199 mg/dL Blood 11/22/2024 12:1 0 PM CDT 11/22/2024 12:10 PM CDT Shahnaz Heredia MD LAB POCT ORDERABLES - DEV ICE Final Result Performing Organization Address City/[facility]/ZIP Co de Phone Number [facility] Department [place] [address] * (ABNORMAL) POCT glucose (11/22/2024 8:28 AM CDT) Glucose, POC 230(H) 70 - 199 mg/dL Blood 11/22/2024 8:28 AM CDT 11/22/2024 8:28 AM CDT Result Alta Bates [facility] Shahnaz Heredia MD LAB POCT ORDERABLES - DEV ICE Final Result Performing Organization Address City/[facility]/ZIP Co de Phone Number [facility] Department [place] [address] * (ABNORMAL) eGFR (11/22/2024 7:56 AM CDT) [...] ORDERABLES Final R esult Performing Organization Address City/[facility]/ZIP Co de Phone Number [facility] Department [place] [address] * Hepatitis B Surface Antigen Blood (11/22/2024 7:56 AM CDT) Pathologist [facility] HepBsAg Nonreactive Nonreactive Blood 11/22/2024 7:56 AM CDT 11/22/2024 8:36 AM CDT Nina Hopson MD LAB MICROB IOLOGY - GENERAL ORDERABLES Edited Result - Final Performing Organization Address City/[facility]/ZIP Co de Phone Number [facility] Department [place] [address] * (ABNORMAL) CBC without differential (11/22/2024 7:56 AM CDT) WBC 7.32 3.80 - 9.90 K/cumm Hgb 8.6(L) 11.9 - 15.5 g/dL [facility] Hct 28.8(L) 35.6 - 45.5 % [facility] Plt 111(L) 150 - 400 K/cumm [facility] MPV 12.6(H) 9.1 - 12.3 fL [facility] RBC 2.91(L) 3.90 - 5.20 M/cumm [facility] MCV 99.0(H) 81.3 - 96.4 fL [facility] MCH 29.6 27.1 - 33.3 pg [facility] MCHC 29.9(L) 32.3 - 35.7 g/dL [facility] RDW CV 17.2(H) 11.1 - 14.9 % [facility] RDW SD 60.7(H) 35.7 - 48.1 fL [facility] NRBC abs 0.00 0.00 - 0.01 K/cumm [facility] Blood 11/22/2024 7:56 AM CDT 11/22/2024 8:37 AM CDT us Tomy GUADARRAMA LAB BLOOD ORDERABLES Final R esult Performing Organization Address City/State/[facility] Co de Phone Number [facility] Department [place] [address] * (ABNORMAL) Basic metabolic panel (11/22/2024 7:56 AM CDT) Sodium 131(L) 135 - 145 mmol/L Potassium, pl 5.5(H) 3.3 - 4.9 mmol/L [facility] Chloride 92(L) 97 - 110 mmol/L [facility] CO2 29 22 - 32 mmol/L [facility] Anion gap 10 2 - 15 mmol/L [facility] BUN 58(H) 6 - 25 mg/dL [facility] Creatinine 6.13(H) 0.60 - 1.10 mg/dL [facility] Glucose 257(H) 70 - 199 mg/dL [facility] Comment: Interpretive Data Fasting glucose [...] PA LAB BLOOD ORDERABLES Final R esult [facility] Department [place] [address] * (ABNORMAL) eGFR (11/21/2024 10:36 PM CDT) [...] 11/21/2024 10:49 PM CDT us Christina Fermin FITTER PLACER LAB BLOOD ORDERABLES Final Result Performing Organization Address City/[facility]/ZIP Co de Phone Number [facility] Department [place] [address] * (ABNORMAL) CBC without differential (11/21/2024 10:36 PM CDT) WBC 8.51 3.80 - 9.90 K/cumm Hgb 8.9(L) 11.9 - 15.5 g/dL [facility] Hct 29.8(L) 35.6 - 45.5 % [facility] Plt 112(L) 150 - 400 K/cumm [facility] MPV 12.7(H) 9.1 - 12.3 fL [facility] RBC 3.01(L) 3.90 - 5.20 M/cumm [facility] MCV 99.0(H) 81.3 - 96.4 fL [facility] MCH 29.6 27.1 - 33.3 pg [facility] MCHC 29.9(L) 32.3 - 35.7 g/dL [facility] RDW CV 17.2(H) 11.1 - 14.9 % [facility] RDW SD 60.3(H) 35.7 - 48.1 fL [facility] NRBC abs 0.02(H) 0.00 - 0.01 K/cumm [facility] Blood 11/21/2024 10:3 6 PM CDT 11/21/2024 10:49 PM CDT us Christina Fermin NP LAB BLOOD ORDERABLES Final Result [facility] Department [place] [address] * (ABNORMAL) Phosphorus (11/21/2024 10:36 PM CDT) Pathologist [facility] Phosphorus, pl 6.5(H) 2.3 - 4.5 mg/dL Blood 11/21/2024 10:3 6 PM CDT 11/21/2024 10:49 PM CDT us Robles Alicea MD LAB BLOOD ORDERABLES Gertrude l Result GUILLERMINA [facility] Department [place] [address] * (ABNORMAL) Basic metabolic panel (11/21/2024 10:36 PM CDT) Sodium 135 135 - 145 mmol/L Potassium, pl 5.5(H) 3.3 - 4.9 mmol/L [facility] Chloride 93(L) 97 - 110 mmol/L [facility] CO2 29 22 - 32 mmol/L [facility] Anion gap 13 2 - 15 mmol/L [facility] BUN 57(H) 6 - 25 mg/dL [facility] Creatinine 5.81(H) 0.60 - 1.10 mg/dL [facility] Glucose 257(H) 70 - 199 mg/dL [facility] Comment: Interpretive Data Fasting glucose [...] 2022. Calcium 9.6 8.5 - 10.3 mg/dL [facility] Blood 11/21/2024 10:3 6 PM CDT 11/21/2024 10:49 PM CDT Christina Fermin NP LAB BLOOD ORDERABLES Final Result GUILLERMINA [facility] Department [place] [address] * POCT glucose (11/21/2024 8:23 PM CDT) Glucose, POC 119 70 - 199 mg/dL Blood 11/21/2024 8:23 PM CDT 11/21/2024 8:23 PM CDT Shahnaz Heredia MD LAB POCT ORDERABLES - DEV ICE Final Result Performing Organization Address City/State/[facility] Co de Phone Number GUILLERMINA [facility] [place] [address] * POCT glucose (11/21/2024 5:24 PM CDT) Glucose, POC 188 70 - 199 mg/dL Blood 11/21/2024 5:24 PM CDT 11/21/2024 5:24 PM CDT Shahnaz Heredia MD LAB POCT ORDERABLES - DEV ICE Final Result Performing Organization Address [facility] de Phone Number [facility] Department [place] [address] * IR Angiogram Lower Extremity Right (11/21/2024 [...] was obtained. Prior to beginning the procedure, [place] Protocol was performed to confirm the patient's [...] the patent vessel was recorded. The 5-British catheter was placed in the superficial femoral artery and the right lower extremity angiogram was performed in stations to the foot A 45 cm 6-British sheath was advanced to the superficial femoral [...] aspirin or Plavix. ATTENDING PRESENCE: Dr. Anthony Gomran, the attending radiologist was present from the [...] was obtained. Prior to beginning the procedure, [place] Protocol was performed to confirm the patient's [...] the patent vessel was recorded. The 5-British catheter was placed in the superficial femoral artery and the right lower extremity angiogram was performed in stations to the foot A 45 cm 6-British sheath was advanced to the superficial femoral [...] it. Electronically signed by: Anthony Gorman M.D. us Anthony Gorman MD IMG IR PROCEDURES Final Result * (ABNORMAL) POCT Activated clotting time, low range (11/21/2024 10:36 AM CDT) ACT 318(H) 123 - 168 sec POC Performer [id number] [facility] POC Device Number [id number] [facility] Blood 11/21/2024 10:3 6 AM CDT 11/21/2024 10:36 AM CDT us Shahnaz Heredia MD LAB POCT ORDERABLES - DEV ICE Final Result Performing Organization Address City/[facility] Co de Phone Number [facility] [place] [address] * (ABNORMAL) POCT Activated clotting time, low range (11/21/2024 9:54 AM CDT) ACT 331(H) 123 - 168 sec POC Performer [id number] [facility] POC Device Number [id number] [facility] Blood 11/21/2024 9:54 AM CDT 11/21/2024 9:54 AM CDT us Shahnaz Heredia MD LAB POCT ORDERABLES - DEV ICE Final Result Performing Organization Address [facility] Co de Phone Number [facility] Department [place] [address] * (ABNORMAL) POCT Activated clotting time, low range (11/21/2024 9:20 AM CDT) ACT 360(H) 123 - 168 sec POC Performer [id number] [facility] POC Device Number [id number] [facility] Blood 11/21/2024 9:20 AM CDT 11/21/2024 9:20 AM CDT us Shahnaz Heredia MD LAB POCT ORDERABLES - DEV ICE Final Result Performing Organization Address City/[facility] Co de Phone Number [facility] Department [place] [address] * (ABNORMAL) eGFR (11/21/2024 6:31 AM CDT) Pathologist [facility] eGFR 8(L) >=60 mL/min/1. 73 m2 Comment: [...] MD LAB BLOOD ORDERABLES Fi nal Result [facility] Department [place] [address] * (ABNORMAL) Differential, auto (11/21/2024 6:31 AM CDT) Pathologist [facility] Neutrophil abs 5.81 1.50 - 6.50 K/cumm Imm gran abs 0.03 0.00 - 0.10 K/cumm [facility] Lymphocyte abs 1.28 0.80 - 3.30 K/cumm [facility] Monocyte abs 0.89(H) 0.20 - 0.80 K/cumm [facility] Eosinophil abs 0.05 0.00 - 0.50 K/cumm [facility] Basophil abs 0.03 0.00 - 0.10 K/cumm [facility] Neutrophil pct 71.8 % [facility] Comment: Interpretive Data Percent cell count reference ranges are not reported, since discordance with absolute values may lead to misinterpretation of CBC data. Current Interpretive Data was last revised on 2017. Imm gran pct 0.4 % [facility] Comment: Interpretive Data Percent cell count reference ranges are not reported, since discordance with absolute values may lead to misinterpretation of CBC data. Current Interpretive Data was last revised on 2017. Lymphocyte pct 15.8 % [facility] Comment: Interpretive Data Percent cell count reference ranges are not reported, since discordance with absolute values may lead to misinterpretation of CBC data. Current Interpretive Data was last revised on 2017. Monocyte pct 11.0 % [facility] Comment: Interpretive Data Percent cell count reference ranges are not reported, since discordance with absolute values may lead to misinterpretation of CBC data. Current Interpretive Data was last revised on 2017. Eosinophil pct 0.6 % [facility] Comment: Interpretive Data Percent cell count reference ranges are not reported, since discordance with absolute values may lead to misinterpretation of CBC data. Current Interpretive Data was last revised on 2017. Basophil pct 0.4 % [facility] Comment: Interpretive Data Percent cell count reference ranges are not reported, since discordance with absolute values may lead to misinterpretation of CBC data. Current Interpretive Data was last revised on 2017. Blood 11/21/2024 6:31 AM CDT 11/21/2024 6:47 AM CDT us Anthony Gorman MD LAB BLOOD ORDERABLES Fi nal Result [facility] Department [place] [address] * (ABNORMAL) CBC with auto differential (11/21/2024 6:31 AM CDT) WBC 8.09 3.80 - 9.90 K/cumm Hgb 9.9(L) 11.9 - 15.5 g/dL [facility] Hct 32.3(L) 35.6 - 45.5 % [facility] Plt 134(L) 150 - 400 K/cumm [facility] MPV 12.6(H) 9.1 - 12.3 fL [facility] RBC 3.31(L) 3.90 - 5.20 M/cumm [facility] MCV 97.6(H) 81.3 - 96.4 fL [facility] MCH 29.9 27.1 - 33.3 pg [facility] MCHC 30.7(L) 32.3 - 35.7 g/dL [facility] RDW CV 17.2(H) 11.1 - 14.9 % [facility] RDW SD 60.4(H) 35.7 - 48.1 fL [facility] NRBC abs 0.02(H) 0.00 - 0.01 K/cumm [facility] Blood 11/21/2024 6:31 AM CDT 11/21/2024 6:47 AM CDT us Anthony Gorman MD LAB BLOOD ORDERABLES Fi nal Result [facility] Department [place] [address] * (ABNORMAL) Lipid panel (11/21/2024 6:31 AM [...] revised on 2018. Triglycerides 90 <=149 mg/dL [facility] Comment: Interpretive Data Ages < [...] revised on 2024. Non-HDL Cholesterol 64 mg/dL [facility] Comment: Interpretive Data Ages < [...] last revised on 2018. Chol/HDL ratio 3 [facility] Blood 11/21/2024 6:31 AM CDT 11/21/2024 6:47 AM CDT Anthony Gorman MD LAB BLOOD ORDERABLES Fi nal Result [facility] Department [place] [address] * (ABNORMAL) Basic metabolic panel (11/21/2024 6:31 AM CDT) Sodium 135 135 - 145 mmol/L Potassium, pl 4.9 3.3 - 4.9 mmol/L [facility] Chloride 92(L) 97 - 110 mmol/L [facility] CO2 32 22 - 32 mmol/L [facility] Anion gap 11 2 - 15 mmol/L [facility] BUN 50(H) 6 - 25 mg/dL [facility] Creatinine 5.26(H) 0.60 - 1.10 mg/dL [facility] Glucose 231(H) 70 - 199 mg/dL [facility] Comment: Interpretive Data Fasting glucose [...] 2022. Calcium 10.3 8.5 - 10.3 mg/dL [facility] Blood 11/21/2024 6:31 AM CDT 11/21/2024 6:47 AM CDT Anthony Gorman MD LAB BLOOD ORDERABLES Fi nal Result Performing Organization Address [facility] de Phone Number [facility] Department [place] [address] * Hepatitis C antibody (08/19/2020 12:07 PM CHAR FILTER OPERATOR HELPER) [facility] Hep C Ab Nonreactive Nonreactive [facility] Comment:Antibodies to HCV no t detected. Does NOT exclude the possibility of recent exposure to HCV. Blood specimen (specimen) 08/19/2020 12:07 PM CHAR FILTER OPERATOR HELPER 08/19/2020 12:15 PM CHAR FILTER OPERATOR HELPER Humza Trevizo MD LAB MICROB IOLOGY - GENERAL ORDERABLES Edited Result - Final Performing Organization Address [facility] de Phone Number [facility] Department [place] [address] * (ABNORMAL) Hemoglobin A1c (09/04/2019 12:14 AM CHAR FILTER OPERATOR HELPER) Pathologist [facility] Hgb A1C 8.2(H) 4.0 - 5.6 % [facility] Estimated Average Glucose 189 mg/dL [facility] Comment: The ADA recommends reporting an estimated Average Glucose (eAG) with all Hemoglobin A1c results using the equation derived from a study of 507 normal and diabetic adults. Minority populations were underrepresented and children were not included. (Diabetes Care 31:2307-8466, 2008). The eAG is not equivalent to a fasting glucose. Blood specimen (specimen) 09/04/2019 12:14 AM CHAR FILTER OPERATOR HELPER 09/04/2019 12:58 AM CHAR FILTER OPERATOR HELPER Brandin Pena MD LAB BLOOD ORDERABLES Final Result Performing Organization Address City/State/[facility] Co nh Phone Number GUILLERMINA [facility] [place] [address] from Last 3 Months or Most Recently Relevant to Health Maintenance Insurance [facility] MEDICARE ADVANTAGE [facility] Address[address] [address] [place] [address] [employer] MEDICARE RESEARCH [facility] MEDICARE ADVANTAGE [facility] MEDICARE ADVANTAGE [facility] Advance Directives For more information, please contact: [phone] * Full Code (Latest Code Status on File) Date Activated Date Inactivated Comments 11/21/2024 7:27 AM 11/22/2024 8:58 PM * Full Code Date Activated Date Inactivated Comments 08/28/2024 6:35 AM 08/29/2024 9:01 PM * Full Code Date Activated Date Inactivated Comments 09/03/2019 11:07 PM 09/04/2019 6:57 PM * Full Code Date Activated Date Inactivated Comments 07/23/2018 10:39 PM 07/24/2018 7:45 PM Care Teams Helpdesk Specialist Relationship Specialty Start Date End Date David Coppola MD PCP - General Family Medicine 10/29/17 Jacob Suarez MD Referring Physician Nephrology 12/20/18 Ros Seay MD Cabinet Maker Cardiology 03/05/19 Abdifatah Villa MD [address] [place] [address] [place] [address] Consulting Physician Cardiology 09/01/20 Issa Clements MD [address] [facility] [address] [place] [address] Referring Physician General Surgery 09/01/20
--- OUTSIDE RECORDS SUMMARY | 2025-02-11 13:04 | XMS_ITS | Clinical Summary ---
Author Organization [facility] Address Replaced by [facility] [place] [address] Care Team Providers Care Senior Payroll Manager Name Role Phone David Coppola MD Primary Care Provider [phone] Social History Tobacco Use Types Packs/Day Years [...] patient's age to complete this topic Insurance [facility] MEDICAID Care Teams Senior Payroll Manager Relationship Specialty Start Date End Date David Coppola MD [facility] [address] [address] PCP - General FAMILY PRACTICE 06/13/22
--- OUTSIDE RECORDS SUMMARY | 2025-02-11 13:04 | XMS_ITS | Encounter Summary ---
Author Organization [facility] Address [address] [place] [address] Phone Care Team Providers Care Liquid Floor And Wall Applier Name Role Phone David Coppola MD Primary Care Provider [phone] Jacob Suarez MD Unavailable [phone] Marnie Lara RN Unavailable [phone] Ros Seay MD Unavailable Johana Edmond RN Unavailable [phone] Abdifatah Villa MD Unavailable Issa Clements MD Unavailable [phone] Encounter Details Date Type Department Care Team (Late st Contact Info) Description 05/13/2018 Telephone [facility] Cardiology [address] [facility] Advanced Medicine 8th [place] [address] [place] [address] Cameron Haro MD [address] [place] [address] Social History Tobacco Use Types Packs/Day Years Used Date Smoking Tobacco: Never Smokeless Tobacco: Never Alcohol Use Standard Drinks/Week Comments No 0 (1 standard drink = 0.6 oz pur e alcohol) Comments No Sex and Gender Information Value Date Recorded Sex Assigned at Not on file Legal Sex Female 12:39 PM PRODUCTION CONTROL COORDINATOR Gender Identity Not on file Sexual [...] Influenza, adult 09/04/2019 09/04/2019 09/11/2019 3:05 AM PRODUCTION CONTROL COORDINATOR Abscess/Wound/Cellulitis 10/16/2019 10/16/2019 3:05 AM CDT documented as of this encounter Care Teams Liquid Floor And Wall Applier Relationship Specialty Start Date End Date David Coppola MD PCP - General Family Medicine 10/29/17 Jacob Suarez MD Referring Physician Nephrology 12/20/18 Marnie Lara RN Registered Nurse Copyright Expert 12/20/1809/03 Ros Seay MD Reservations And Ticketing Agent Cardiology 03/05/19 Johana Edmond, RN [address] [facility] [address] [place] [address] Copyright Expert 08/21/19 Abdifatah Villa MD [address] [facility] [address] [place] [address] Consulting Physician Cardiology 09/01/20 Issa Clements MD [address] [facility] [address] [place] [address] Referring Physician General Surgery 09/01/20 documented as of this encounter
--- OUTSIDE RECORDS SUMMARY | 2025-02-11 13:04 | XMS_ITS | Clinical Summary ---
Author Organization [facility] Address [address] [place] [address] Phone Care Team Providers Care Earth Auger Operator Name Role Phone Unavailable Primary Care Provider Unavailabl e Medications imipramine (TOFRANIL) 25 MG tablet 0 03/04/2014 Active pioglitazone (ACTOS) 15 MG tablet 03/04/2014 Active amLODIPine (NORVASC) 5 MG tablet 03/04/2014 Active aspirin (ASPIR-LOW) 81 MG EC tablet 03/04/2014 Active lovastatin (MEVACOR) 20 MG tablet 03/04/2014 Active ergocalciferol (VITAMIN D-2) 10837 units capsule 1 weekly 03/04/2014 Active lisinopril (PRINIVIL,ZESTR IL) 20 MG tablet 1 daily 12 08/23/2017 Active diclofenac (VOLTAREN) 1 % topical gel 03/04/2014 Active omega-3 (FISH OIL) 1000 MG capsule 03/04/2014 Active clotrimazole (LOTRIMIN) 1 % cream 03/04/2014 Active ferrous sulfate 325 (65 Fe) MG tablet 03/04/2014 Active carvedilol (COREG) 3.125 MG tablet 1 ibid 12 07/17/2017 Active Methylcobalamin (L81-ZJUWZU) 1 MG chewable tablet half tab daily [...] Comments Blood Pressure 119/62 09/11/2018 12:01 AM MANAGER SEARCH ENGINE Pulse 72 02/01/2015 12:01 AM CDT Temperature 36.8 C (98.3 F) 02/01/2015 12:01 AM CDT Respiratory Rate - - Oxygen Saturation - - Inhaled Oxygen Concentration - - Weight 63.5 kg (140 lb) 09/11/2018 12:01 AM MANAGER SEARCH ENGINE Height 149.9 cm (4' 11) 09/11/2018 12:01 AM MANAGER SEARCH ENGINE Body Mass Index 28.28 09/11/2018 12:01 AM MANAGER SEARCH ENGINE Plan of Treatment Health Maintenance Due Date Last Done Comments Pneumococcal PPSV23/PCV13 65 + Years / Low and Medium Risk (1 of 2 - PCV) 1996 Influenza Vaccine (#1) 2025
--- OUTSIDE RECORDS SUMMARY | 2025-02-11 13:04 | XMS_ITS | Encounter Summary ---
Author Organization [facility] Address [address] [place] [address] Phone Care Team Providers Care Principal Cloud Architect Name Role Phone David Coppola MD Primary Care Provider [phone] David Coppola MD Primary Care Provider [phone] David Coppola MD Primary Care Provider [phone] David Coppola MD Primary Care Provider [phone] Unknown, Notinfile Primary Care Provider Unavail able David Coppola MD Primary Care Provider [phone] Jacob Suarez MD Unavailable [phone] Marnie Lara RN Unavailable Ros Seay MD Unavailable [phone] Johana Edmond RN Unavailable Abdifatah Villa MD Unavailable Issa Clements MD Unavailable [phone] Encounter Details Date Type Department Care Team (Latest Contact Info) Description 12/16/1980 Orders Only [facility] Scanning, Provider Social History Tobacco Use Types Packs/Day Years Used Date Smoking Tobacco: Never Assessed Comments Unknown Sex and Gender Information Value Date Recorded Sex Assigned at Not on file Legal Sex Female 12:39 PM TECHNICAL SALES REPRESENTATIVE Gender Identity Not on file Sexual Orientation [...] Influenza, adult 09/04/2019 09/04/2019 09/11/2019 3:05 AM TECHNICAL SALES REPRESENTATIVE Abscess/Wound/Cellulitis 10/16/2019 10/16/2019 3:05 AM CDT documented as of this encounter Care Teams Principal Cloud Architect Relationship Specialty Start Date End Date David Copploa MD PCP - General 10/06/16 06/03/17 David Coppola MD PCP - General 09/09/15 10/05/16 David Coppola MD PCP - General 06/04/17 06/04/17 David Coppola MD PCP - General 06/05/17 08/16/17 Unknown, Notinfile PCP - General 08/17/17 10/28/17 David Coppola MD PCP - General Family Medicine 10/29/17 Jacob Suarez MD Referring Physician Nephrology 12/20/18 Marnie Lara, RN Registered Nurse Sleep Medicine Physician 12/20/1809/03 Ros Seay MD Blender Machine Operator Cardiology 03/05/19 Johana Edmond, RN [address] [facility] [address] [place] [address] Sleep Medicine Physician 08/21/19 Abdifatah Villa MD [address] [facility] C [facility] [address] [facility] C, [facility] [address] [place] [address] Consulting Physician Cardiology 09/01/20 Issa Clements MD [address] [facility] [address] [place] [address] Referring Physician General Surgery 09/01/20 documented as of this encounter
--- OUTSIDE RECORDS SUMMARY | 2025-02-11 13:04 | XMS_ITS | Encounter Summary ---
Author Organization [facility] Address [address] [place] [address] Care Team Providers Care Labor Relations Director Name Role Phone David Coppola MD Primary Care Provider + [phone] David Coppola MD Unavailable [phone] David Coppola MD Unavailable [phone] Virginie Corea RN Unavailable [phone] Encounter Details Date Type Department Care Team (Late st Contact Info) Description 04/10/2018 Nutrition [facility] TRANS[facility]ANT [address] [place] [phone] Lindsay Gardner RD/LAURA Social History Tobacco Use Types Packs/Day Years Used Date Smoking Tobacco: Never Smokeless Tobacco: Never Alcohol Use Standard Drinks/Week Comments No 0 (1 standard drink = 0.6 oz pur e alcohol) Comments No Sex and Gender Information Value Date Recorded Sex Assigned at Not on file Legal Sex Female 5:40 PM MEDICAL IMAGING TECHNICIAN Gender Identity Not on file Sexual [...] AM CDT Appointment [facility] [address] [facility] [place], [address] [place], [place] [address] [place] [address] [facility] [address] [place] [address] [place] [address] [facility] [address] [place] [address] Cristo Fontenot MD [address] [place] [address] 03/17/2025 1:00 PM CDT Procedure visit [facility] [address] [place] [phone] 03/17/2025 1:30 PM CDT Office Visit [facility] [address] [place] [phone] Avis Dumont, BIOCHEMISTRY SPECIALIST-ADMINISTRATIVE JUDGE [address] [place] [address] [place] [address] documented as of this encounter Visit Diagnoses Not on filedocumented in this encounter Care Teams Labor Relations Director Relationship Specialty Start Date End Date David Coppola MD [address] [place] [phone] PCP - General 08/15/16 David Coppola MD [address] [place] [phone] Family Medicine 02/08/15 David Coppola MD [address] [place] [phone] Family Medicine 08/15/16 Virginie Corea RN Project Director 02/23/15 documented as of this encounter
--- OUTSIDE RECORDS SUMMARY | 2025-02-11 13:04 | XMS_ITS | Encounter Summary ---
Author Organization [facility] Address [address] [facility] [place] [address] Care Team Providers Care Tree And Shrub Technician Name Role Phone David Coppola MD Primary Care Provider + [phone] David Coppola MD Unavailable [phone] David Coppola MD Unavailable [phone] Virginie Corea RN Unavailable [phone] Encounter Details Date Type Department Care Team (Late st Contact Info) Description 03/19/2023 Telephone [facility] Wound Care [address] [facility] , [address] [phone] Lima Martins Social History Tobacco Use Types Packs/Day Years Used Date Smoking Tobacco: Never Smokeless Tobacco: Never Alcohol Use Standard Drinks/Week Comments No 0 (1 standard drink = 0.6 oz pur e alcohol) Comments No Sex and Gender Information Value Date Recorded Sex Assigned at Not on file Legal Sex Female 5:40 PM PERSONNEL CLERK Gender Identity Not on file Sexual [...] Info) Description 03/10/2025 11:00 AM CDT Appointment [facility] Vascular Services [address] [facility], [address] [place], [place] [phone] [place] [address] [facility] [address] [place] [phone] [place] [address] [facility] [address] [place] [phone] Cristo Fontenot MD [address] [place] [address] 03/17/2025 1:00 PM CDT Procedure visit [facility] [address] [place] [phone] 03/17/2025 1:30 PM CDT Office Visit [facility] - [facility] [address] [place] [phone] Avis Dumont, CIRCULAR KNITTER HELPER-TREASURY ASSOCIATE [address] [place] [address] documented as of this encounter Visit Diagnoses Not on filedocumented in this encounter Care Teams Tree And Shrub Technician Relationship Specialty Start Date End Date David Coppola MD [address] [place] [phone] PCP - General 08/15/16 David Coppola MD [address] [place] [phone] Family Medicine 02/08/15 David Coppola MD [address] [place] [phone] Family Medicine 08/15/16 Virginie Corea, ABENA Supervisor Chlorine Liquefaction 02/23/15 documented as of this encounter
--- OUTSIDE RECORDS SUMMARY | 2025-02-11 13:04 | XMS_ITS | Encounter Summary ---
Author Organization [facility] Address [address] [facility] [place] [address] Care Team Providers Care Plastic Molder Name Role Phone David Coppola MD Primary Care Provider +- [phone] David Coppola MD Unavailable [phone] David Coppola MD Unavailable [phone] Virginie Corea RN Unavailable [phone] Reason for Referral * Radiology Services (Routine) - Open Specialty Diagnoses / Procedures Referred By Mark t Referred To Contact Diagnoses Hepatitis B core antibody positive Procedures PROC FIBROSCAN Avis Dumont APRN-CNP [address] [place] [address] [address] [place] [address] Phone: tel: fax: Referral ID Status Reason Start Date Expiration Date Visits Re quested Visits Authorized [id number] Open 02/03/2025 02/03/2026 1 1 Encounter Details Date Type Department Care Team (Late st Contact Info) Description 02/03/2025 Orders Only [facility] [address] [facility], [place] [address] Avis Dumont APRN-CNP [address] [place] [address] [address] [place] [address] Hepatitis B core antibody positive Social History Tobacco Use Types Packs/Day Years Used Date Smoking Tobacco: Never Smokeless Tobacco: Never Alcohol Use Standard Drinks/Week Comments No 0 (1 standard drink = 0.6 oz pur e alcohol) Comments No Sex and Gender Information Value Date Recorded Sex Assigned at Not on file 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 Gender Identity Not on file Sexual Orientation [...] Info) Description 03/10/2025 11:00 AM CDT Appointment [facility] Health Vascular Services [address] [facility], [address] [place] [address] [place] [address] [facility] [address] [place] [address] [place] [address] [facility] [address] [place] [address] Cristo Fontenot MD [address] [place] [address] 03/17/2025 1:00 PM CDT Procedure visit [facility] [place] [address] [place] [address], [place] [address] 03/17/2025 1:30 PM CDT Office Visit [facility] - GI [address] [place] [phone] Avis Dumont, SVP BUSINESS DEVELOPMENT-MOTOR GRADER OPERATOR [address] [place] [address] [place] [address] Scheduled Orders Name Type Priority Associated Diagnoses Orde r Schedule PROC FIBROSCAN Procedures Routine Hepatitis B core antibody positive 1 Occurrences starting 02/03/2025 until 02/03/2026 documented as of this encounter Visit Diagnoses Diagnosis Hepatitis B core antibody positive- Primary Other and unspecified nonspecific immunological findings documented in this encounter Care Teams Plastic Molder Relationship Specialty Start Date End Date David Coppola MD [address] [place] [phone] PCP - General 08/15/16 David Coppola MD [address] [place] [phone] Family Medicine 02/08/15 David Coppola MD [address] [place] [phone] Family Medicine 08/15/16 Virginie Corea, ABENA Executor Of Estate 02/23/15 documented as of this encounter
--- OUTSIDE RECORDS SUMMARY | 2025-02-11 13:04 | XMS_ITS | Encounter Summary ---
Author Organization [facility] Health Address [address] [facility] [place] [address] Care Team Providers Care Independent Distributor Name Role Phone David Coppola MD Primary Care Provider + [phone] David Coppola MD Primary Care Provider + [phone] David Coppola MD Unavailable [phone] David Coppola MD Unavailable [phone] Virginie Corea RN Unavailable [phone] Encounter Details Date Type Department Care Team (Late Contact Info) Description 02/08/2015 [facility] Outpatient Visit EXTERNAL NON-[facility] DEPT David Buitrago MD [address] [place] [address] [address] [place] [phone] Social History Tobacco Use Types Packs/Day Years Used Date Smoking Tobacco: Never Alcohol Use Standard Drinks/Week Comments No 0 (1 standard drink = 0.6 oz pur e alcohol) Comments Unknown Sex and Gender Information Value Date Recorded Sex Assigned at Not on file Legal Sex Female 5:[address]ER Gender Identity Not on file Sexual Orientation Not on file documented as of this encounter Plan of Treatment Upcoming Encounters Date Type Department Care Team (Late Contact Info) Description 03/10/2025 11:00 AM CDT Appointment [facility] Health Vascular Services [address] [place] [address], [address] [place] [address] [place] [address] [facility] [address] [place] [address] [place] [address] [facility] [address] [place] [address] Cristo Fontenot MD [address] [place] [address] 03/17/2025 1:00 PM CDT Procedure visit [facility] - GI [address] [place] [address], [place] [phone] 03/17/2025 1:30 PM CDT Office Visit [facility] - GI [address] [place] [phone] Avis Dumont, FLUTE POLISHER-CONSTITUTIONAL LAW PROFESSOR [address] [place] [address] OF [place]STR[place] [phone] documented as of this encounter Visit Diagnoses Not on filedocumented in this encounter Care Teams Independent Distributor Relationship Specialty Start Date End Date David Coppola MD [address] [place] [phone] PCP - General Family Medicine 02/08/15 08/14/16 David Coppola MD [address] [place] [phone] PCP - General 08/15/16 David Coppola MD [address] [place] [phone] Family Medicine 02/08/15 David Coppola MD [address] [place] [phone] Family Medicine 08/15/16 Virgiine Corea, ABENA Gre Tutor 02/23/15 documented as of this encounter
--- OUTSIDE RECORDS SUMMARY | 2025-02-11 13:04 | XMS_ITS | Clinical Summary ---
Author Organization [facility] Address [address] [facility] [place] [address] Care Team Providers Care Sheet Combining Operator Name Role Phone David Coppola MD Primary Care Provider +- [phone] David Coppola MD Unavailable [phone] David Coppola MD Unavailable [phone] Virginie Corea RN Unavailable [phone] Source Comments [facility],non-owned Affiliates and Associated Physician Practices is amultiple site organization consisting of ambulatory clinics and hospital sitesin [place], [place], [place] and [place]. This disclosure is being madepursuant to the Care Everywhere program and may not contain all information available regarding this patient. Last updated 18.[facility] Allergies Active Allergy Reactions Criticality Noted [...] vitamin D, ergocalciferol , (DRISDOL) 1.25 MG (39368 UT) capsule Take 1 (one) capsule by mouth every 7 days (once a week) 9 Active sevelamer carbonate (RENVELA) 800 MG TAKE 3 TABLETS BY MOUTH THREE TIMES DAILY WITH MEALS 0 Active acetaminophen (TYLENOL) 500 MG capsule Take 2 (two) capsules by mouth Active atorvastatin (LIPITOR) 20 MG tablet 1 Active lidocaine-pril ocaine (EMLA) 2.5-2.5 % cream [...] 3 Active Coenzyme Q10 10 MG Active vitamin [...] Active Problems Problem Noted Date Diagnosed Date Hepatitis B core antibody positive 02/03/2025 Encounter regarding vascular access for dialysis for end-stage renal disease 09/29/2022 ESRD (end stage renal disease) 04/02/2018 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 Pre-transplant evaluation for kidney transplant 12/10/2017 Overview (04/15/2018): Images from the original note were not included. Listing date: Not yet listed Referring Chain Puller: Dr. Suarez Dialysis Type and Start Date: [...] lives with her Estela. She speaks fluent Swedish. She has 3 children who live in [place] and [facility]. Her support system is her and his [...] (Bezet) ms 462 ms Final Calculated R [place] degrees 82 degrees Final Calculated T axis degrees 53 degrees Final EKG Interp Final ATRIAL FIBRILLATION NONSPECIFIC ST ABNORMALITY , PROBABLY DIGITALIS EFFECT ABNORMAL ECG NO PREVIOUS ECGS AVAILABLE Confirmed by Fritz GANT, MIKE ([id number]), editorial intern Joseph Ingram ([id number]) on 04/04/2018 1:32:49 PM Echo: 03/28/18 CONCLUSION: There is moderate concentric left ventricular hypertrophy. The left ventricular ejection fraction is estimated at 65 %. There are no regional wall motion abnormalities present. Estimated right ventricular systolic pressure is 39 mmHg. Severe biatrial enlargement Mild dilated proximal ascending aorta. DSE: n/a will need [facility] Cardiac Cath: Will need d/t length [...] Completed at [facility]SH on 03/20/18 Cardiac Catheterization03/20/2018 [facility] Result Narrative PERIPHERAL ANGIOGRAM AND [...] groin hematoma, retroperitoneal bleed, vessel perforation; periprocedural IA, stroke, contrast induced nephropathy, and even . [...] artery access site 8. Moderate Sedation (CPT 19979) MODERATE SEDATION: Midazolam 2 mg , Fentanyl 50 mcg, start time 1157 stop time 1318, total direct [id number] monitoring of conscious sedation 81 minutes (CPT 69579) TRAINED OBSERVER: Mena Scruggs RN was trained office over for moderate sedation. ACCESS SITE: Right common femoral artery PROCEDURE: After obtaining informed consent, patient was brought to the computer laboratory technician and prepped and draped in the usual sterile manner. After local anesthesia with lidocaine, right common femoral artery access was taken with micropuncture needle followed by insertion of a 5 Ukrainian sheath over a 0.035 inch wire. Selective right common femoral angiogram with distal runoff was performed through the 5 Ukrainian sheath. After this, a 5 Ukrainian IM catheter was advanced in the distal abdominal aorta, distal abdominal aortogram with bilateral iliac runoff was performed. The same catheter was pointed towards the left common iliac artery, selective left common iliac angiogram with distal runoff was performed. During intervention, selective left common femoral angiogram and superficial femoral angiogram was performed using the long 6 Ukrainian sheath. The angiographic findings and details of [...] intervention on the same vessel. The 5 Ukrainian sheath was exchanged with a long 90 cm sheath over 035 glide wire. The tip of the long sheath was position in the proximal popliteal artery. Patient received heparin for procedural anticoagulation, ACT was monitored throughout the procedure. Patient also received aspirin loading dose of clopidogrel 600 mg in the computer laboratory technician. The totally occluded, calcified left anterior tibial [...] received dental clearance PPD: Colonoscopy: Completed at [facility] 12/02/2015 Mammo: Pap: Dental: SW: 03/28/18 Clinical Social Work Impression: It is the impression of this social media developer that Shasta Obando has several positive factors for Kidney transplant candidacy from a psychosocial perspective. Pt has a good understanding of her disease and motivation for kidney transplant. Pt appears to have adequate insurance and financial situation (children provide assistance as needed) for post transplant needs. Pt has identified adequate support system and appropriate discharge plan. No concerns regarding substance abuse identified. Plan: farmworker pullet farm to provide supportive services as needed. No f/u indicated at this time.Patient appears to be a reasonable candidate for transplant from a psychosocial perspective. Post transplant arrangement forms are needed prior to being listed. Psychiatric Consult Recommended: No Transplant Crew Team Member: Nicole Tomas LMSW RD: 03/28/18 BMI= 28.51, overweight - Pt is considered to be a good candidate for a Kidney Transplant from a Nutrition standpoint. Recommendations/Interventions: Pt instructed to continue to work with Renal RD at HD on diet and to be compliant. Lindsay Gardner Encounter for other preprocedural examination Overview (10/08/2017): Listing date: Not yet listed Referring Chain Puller: Dr. Suarez Dialysis Type and Start Date: HD M,W,F with start date of 02/04/2015 Blood Type: O + BMI: Short H/P summary: HH Obtained: 70 y.o. F with DM2 (dx [...] lives with her Estela. She speaks fluent Swedish. She has 3 chilren who live in [place] and [facility]. Her support system is her and his [...] Transplant surgery appt: Consults: cardiology consult with [facility] Notes: Not yet presented Evaluation Testing Date and Results: Labs: PTH: A1c: Glucose: PSA: GFR: Serologies: CMV Igg: EBV Igg: Albumin: Tox Screen: PRA: Echo: DSE: Cardiac Cath: CXR: Pano: US: PPD: Negative at on 05/08/2016 Colonoscopy: Completed at [facility] 12/02/2015 Mammo: Pap: Dental: SW: RD: Abnormal finding on imaging 06/15/2015 Overview (06/15/2015): Filling defect on venography of central veins. Need to rule out aortic arch aneurysm. Complication of arteriovenous dialysis fistula PVD (peripheral vascular disease) Encounters Date Type Department Care Team Description 02/03/2025 Orders Only [facility] [address] [facility], [place] [address] Avis Dumont, STABLE MANAGER-GLASS GLAZIER Hepatitis B core antibody positive 11/26/2024 Travel 11/11/2024 10:04 AM CDT - 11/11/2024 11:59 PM CDT Hospital Encounter [facility] Health Vascular Services [address] [place] [address], [address] [place] [address] David Buitrago MD Oak, MD Corie Denton Mahbubul, MD Discharge Disposition: Home or Self Care 11/11/2024 Travel from Last 3 Months Immunizations Immunization Administration Dates Next Due Covid Moderna primary monova lent 12+ yr 0.5mL 11/04/2021,10/15/2020,09/17/2020 Family History Medical History Relation Name Comments IA Brother 3 Heart Disease Father Hypertension Father IA Father Hypertension Mother Relation Name Status Comments [...] on file 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 Gender Identity Not on file Sexual Orientation [...] Info) Description 03/10/2025 11:00 AM CDT Appointment [facility] Vascular Services [address] [facility], [address] [place] [address] [place] [address] [facility] [address] [place] [address] [place] [address] [facility] [address] [place] [address] Cristo Fontenot MD [address] [place] [address] 03/17/2025 1:00 PM CDT [facility] [address] [place] [phone] 03/17/2025 1:30 PM CDT Office Visit [facility] - GI [address] [place] [phone] Avis Dumont, STABLE MANAGER-GLASS GLAZIER [address] [place] [address] Health Maintenance Due Date Last Done Comments [...] MEDICARE AWV CALENDAR YEAR 2024 INFLUENZA VACCINE (#1) 2025 8, 04/08/2017, 03/23/2015, Additional history exists HEPATITIS C [...] this topic Medical Devices Implanted Type Area Band Edger Device Identifier Shelf Expiration Date Model / Serial / Lot Duraflow 2 Hemodialysis Catheter Implanted:Qty: 1 on 02/22/2015 by David Buitrago MD at [facility] Right: Chest 06/07/2017 [id number] / / [id number] [place] Acuseal Vascular Graft Implanted:Qty: 1 on 04/02/2018 by David Buitrago MD at [facility] Left: Arm 10/29/2020 [id number] / / [id number] Procedures Procedure Name Priority Date/Time Associated Diagnosis [...] Notes Date: 11/11/2024 Surgeon: Cristo Fontenot MD Supervisor Coating: none Pre-Procedure diagnosis: Prolonged bleeding after access [...] over the wire for a short 6 Ukrainian sheath. Over the wire, peripheral venoplasty was [...] glen Non-reac tive 03/28/2018 2:50 PM CDT [facility] Comment: Hepatitis C Antibody screen indicates no [...] 1:53 PM CDT 03/28/2018 2:05 PM CDT Alana Hines MD LAB - CHEMISTRY ORDERABLES Fi nal Result [address] [phone] from Last 3 Months or Most Recently Relevant to Health Maintenance Insurance MEDICAID - [place] UHC MANAGED MEDICARE ADV MEDICAID - OUT OF STATE Advance Directives Documents on File Type Date Recorded Patient Cabinet And Trim Installer Expl anation Adv Directive/Living Will/POA 09/18/2017 * Full Code (Latest Code Status on File) Date Activated Date Inactivated Comments 02/22/2015 4:27 PM 02/23/2015 5:53 PM Care Teams Sheet Combining Operator Relationship Specialty Start Date End Date David Coppola MD [address] [place] [phone] PCP - General 08/15/16 David Coppola MD [address] [place] [address] [phone] Family Medicine 02/08/15 David oCppola MD [address] [place] [phone] Family Medicine 08/15/16 Virginie Corea, ABENA Guide Rail Cleaner 02/23/15
--- OUTSIDE RECORDS SUMMARY | 2025-02-11 13:04 | XMS_ITS | Encounter Summary ---
Author Organization [facility] Healthcare Address [address] [place] [address] Care Team Providers Care Cable Mechanic Name Role Phone David Coppola MD Primary Care Provider [phone] Jacob Suarez MD Unavailable Ros Seay MD Unavailable [phone] Abdifatah Villa MD Unavailable Issa Clements MD Unavailable [phone] Encounter Details Date Type Department Care Team (Late st Contact Info) Description 11/19/2024 Telephone [facility] Radiology [address] [place] [address] Yaritza Golden RN Social History Tobacco Use [...] often do you attend chur ch or pentecostalism services? 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 Gender Identity Not on file Sexual Orientation Not on file documented as of this encounter Plan of Treatment Scheduled Procedures Name Priority Associated Diagnoses Date/Ti me TRANSPLANT KIDNEY ESRD (end stage renal disease) (HCC) documented as of this encounter Visit Diagnoses Not on filedocumented in this encounter Care Teams Cable Mechanic Relationship Specialty Start Date End Date David Coppola MD PCP - General Family Medicine 10/29/17 Jacob Suarez MD Referring Physician Nephrology 12/20/18 Ros Seay MD Mathematical Scientist Cardiology 03/05/19 Abdifatah Villa MD [address] [facility] [address] [place] [address] Consulting Physician Cardiology 09/01/20 Issa Clements MD [address] [facility] [address] [place] [address] Referring Physician General Surgery 09/01/20 documented as of this encounter
--- OUTSIDE RECORDS SUMMARY | 2025-02-11 13:04 | XMS_ITS ---
Author Organization [facility] [address] Address [address] [place] [address] Care Team Providers Care Saloonkeeper Name Role Phone David Coppola MD Primary Care Provider [phone] Jacob Suarez MD Unavailable Ros Seay MD Unavailable Abdifatah Vilal MD Unavailable Issa Clements MD Unavailable [phone] Dialysis Access Sites Type Status Location [...] Routine) 12/23/2024 11:51 AM CDT Atherosclerosis of [place] arteries of extremities with rest pain, bilateral legs (HCC) Atherosclerosis of [place] arteries of extremities with rest pain, left leg (HCC) US ARTERIAL DOPPLER LOWER EXTREMITY BILATERAL Schedule Routine, Read Routine (OP Routine) 12/23/2024 11:17 AM CDT Atherosclerosis of [place] arteries of extremities with intermittent claudication, right leg Atherosclerosis of [place] arteries of extremities with rest pain, bilateral [...] HEPATITIS C ANTIBODY Routine 08/19/2020 12:07 PM RESIDENTIAL MORTGAGE UNDERWRITER ESRD (end stage renal disease) (HCC) HEMOGLOBIN A1C Routine 09/04/2019 12:14 AM RESIDENTIAL MORTGAGE UNDERWRITER from Last 3 Months or Most Recently [...] GIB. Patients daughter reports recent admission to [facility] due to concern for GIB. Patient followed up with her outpatient GI. Planning for EGD at the end of November - continue PPI. Assessment & Plan (11/21/2024 3:03 PM CDT): History of peptic ulcer with GIB. Patients daughter reports recent admission to [facility] due to concern for GIB. Patient followed up with her outpatient GI. Planning for EGD at the end of November - closely monitor for bleeding due to starting asa and Plavix as above - continue PPI Assessment & Plan (08/28/2024 1:08 PM RESIDENTIAL MORTGAGE UNDERWRITER): History of peptic ulcer with GIB Denies sx continue PPI Heart valve disease 04/06/2023 History of GI bleed 02/04/2023 Bradycardia 09/29/2022 Bleeding 09/29/2022 Idiopathic hypotension 09/13/2021 Complication of arteriovenous dialysis fistula 0 09/07/2020 Type 2 diabetes mellitus wit h diabetic peripheral angiopathy and gangrene, without long-term current use of insulin 08/21/2020 Assessment & Plan (08/28/2024 1:05 PM RESIDENTIAL MORTGAGE UNDERWRITER): Home regimen Januvia, tresiba 10 and Victoza. Reviewed PCP records noted hypoglycemia last hospital admit with basal insulins continued Will continue januvia and hold tresiba and victoza SSI Family history of ischemic h eart disease and other diseases of the circulatory system 11/27/2019 Critical limb ischemia of right lower extremity 10/14/2019 Overview (10/14/2019): Added automatically from request for surgery [id number] Assessment & Plan (08/28/2024 12:59 PM RESIDENTIAL MORTGAGE UNDERWRITER): S/p uncomplicated balloon angioplasty of the AT, [...] (10/14/2019): Added automatically from request for surgery [id number] Presence of Watchman left atrial appendage closu re device 08/29/2018 Atrial fibrillation, permanent 06/13/2018 Overview (06/13/2018): Added automatically from request for surgery [id number] Assessment & Plan (11/22/2024 1:43 PM CDT): Rate controlled and s/p Watchman due to prior GIB. - continue home coreg as below. Assessment & Plan (11/21/2024 3:39 PM CDT): Rate controlled and s/p Watchman due to prior GIB. - continue home coreg as below Assessment & Plan (08/28/2024 1:03 PM RESIDENTIAL MORTGAGE UNDERWRITER): Follows with [facility] cardiology. Rate controlled and s/p Watchman due to prior severe GIB Recently stopped coreg due to bradycardia ASA and plavix to start per IR recs post revascularization Assessment & Plan (07/24/2018 9:29 AM RESIDENTIAL MORTGAGE UNDERWRITER): Continue coreg. S/p Watchmann DAVIDA occluder implant for future deescalate anticoagulation. Continue apixiban for now as per EP. Post procedure CXR. 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 PAD (peripheral artery disease) 03/15/2018 Overview (03/15/2018): Added automatically from request for surgery [id number] Assessment & Plan (11/22/2024 1:43 PM CDT): [...] (03/15/2018): Added automatically from request for surgery [id number] Ischemia of foot 03/15/2018 Overview (03/15/2018): Added automatically from request for surgery [id number] Noncompliance 02/24/2018 Essential hypertension 11/10/2017 Assessment & Plan (11/22/2024 1:43 PM CDT): On lisinopril and coreg at home, holding today for lower BP. Resume as able. Assessment & Plan (11/21/2024 3:03 PM CDT): Continue home lisinopril and coreg Assessment & Plan (07/24/2018 9:27 AM RESIDENTIAL MORTGAGE UNDERWRITER): Continue home meds and dialysis. Hyperlipidemia associated [...] today Assessment & Plan (08/29/2024 4:04 PM RESIDENTIAL MORTGAGE UNDERWRITER): Routine M/W/F r brachial fistula (has required multiple dilations last at [facility] 07/2024 Feeling well post procedure denies dyspnea. Renal consulted for HD prior to discharge Assessment & Plan (07/24/2018 9:26 AM RESIDENTIAL MORTGAGE UNDERWRITER): HD as per renal consult. Resume outpt [...] often do you attend chur ch or adventist services? 1 to 4 times per year 09/04/2019 Do you belong to any clubs o r organizations such as jew groups, unions, fraternal or athletic groups, or [...] on file Legal Sex Female 12:39 PM RESIDENTIAL MORTGAGE UNDERWRITER Gender Identity Not on file Sexual [...] Mass Index 23.59 01/13/2025 1:22 PM CDT Results * US Arterial Duplex Lower Extremity [...] DATE: 12/23/2024 10:00 AM HISTORY: Atherosclerosis of [place] Arteries of Extremities with Rest Pain, Bilateral [...] DATE: 12/23/2024 10:00 AM HISTORY: Atherosclerosis of [place] Arteries of Extremities with Rest Pain, Bilateral [...] by: Cezar Antonio MD Anthony Gorman MD [facility] US PROCEDURES Final Result * US MELISSA [...] DATE: 12/23/2024 10:00 AM HISTORY: Atherosclerosis of [place] Arteries of Extremities with Rest Pain, Bilateral [...] DATE: 12/23/2024 10:00 AM HISTORY: Atherosclerosis of [place] Arteries of Extremities with Rest Pain, Bilateral [...] DEV ICE Final Result Performing Organization Address City/[facility] Co de Phone Number [facility] [place] [address] * (ABNORMAL) POCT glucose (11/22/2024 8:28 AM CDT) Glucose, POC 230(H) 70 - 199 mg/dL Blood 11/22/2024 8:28 AM CDT 11/22/2024 8:28 AM CDT Shahnaz Heredia MD LAB POCT ORDERABLES - DEV ICE Final Result [facility] [place] [address] * (ABNORMAL) eGFR (11/22/2024 7:56 AM CDT) [...] LAB BLOOD ORDERABLES Final R [facility] [place] [address] * Hepatitis B Surface Antigen Blood (11/22/2024 7:56 AM CDT) HepBsAg Nonreactive Nonreactive Blood 11/22/2024 7:56 AM CDT 11/22/2024 8:36 AM CDT Nina Hopson MD LAB MICROB IOLOGY - GENERAL ORDERABLES Edited Result - Final Performing Organization Address City/[facility]/ZIP Co de Phone Number [facility] [place] [address] * (ABNORMAL) CBC without differential (11/22/2024 7:56 AM CDT) WBC 7.32 3.80 - 9.90 K/cumm Hgb 8.6(L) 11.9 - 15.5 g/dL [facility] Hct 28.8(L) 35.6 - 45.5 % [facility] Plt 111(L) 150 - 400 K/cumm [facility] MPV 12.6(H) 9.1 - 12.3 fL [facility] RBC 2.91(L) 3.90 - 5.20 M/cumm [facility] MCV 99.0(H) 81.3 - 96.4 fL [facility] MCH 29.6 27.1 - 33.3 pg [facility] MCHC 29.9(L) 32.3 - 35.7 g/dL [facility] RDW CV 17.2(H) 11.1 - 14.9 % [facility] RDW SD 60.7(H) 35.7 - 48.1 fL [facility] NRBC abs 0.00 0.00 - 0.01 K/cumm [facility] Blood 11/22/2024 7:56 AM CDT 11/22/2024 8:37 AM CDT us Tomy GUADARRAMA LAB BLOOD ORDERABLES Final R esult [facility] [place] [address] * (ABNORMAL) Basic metabolic panel (11/22/2024 7:56 AM CDT) Sodium 131(L) 135 - 145 mmol/L Potassium, pl 5.5(H) 3.3 - 4.9 mmol/L [facility] Chloride 92(L) 97 - 110 mmol/L [facility] CO2 29 22 - 32 mmol/L [facility] Anion gap 10 2 - 15 mmol/L [facility] BUN 58(H) 6 - 25 mg/dL [facility] Creatinine 6.13(H) 0.60 - 1.10 mg/dL [facility] Glucose 257(H) 70 - 199 mg/dL [facility] Comment: Interpretive Data Fasting glucose >/= [...] Calcium 8.8 8.5 - 10.3 mg/dL [facility] Blood 11/22/2024 7:56 AM CDT 11/22/2024 8:37 AM CDT us Tomy GUADARRAMA LAB BLOOD ORDERABLES Final R esult [facility] [place] [address] * (ABNORMAL) eGFR (11/21/2024 10:36 PM CDT) [...] 11/21/2024 10:49 PM CDT us Christina Fermin TILE LAYER DRAINAGE LAB BLOOD ORDERABLES Final Result [facility] [place] [address] * (ABNORMAL) CBC without differential (11/21/2024 10:36 PM CDT) [facility] WBC 8.51 3.80 - 9.90 K/cumm Hgb 8.9(L) 11.9 - 15.5 g/dL [facility] Hct 29.8(L) 35.6 - 45.5 % [facility] Plt 112(L) 150 - 400 K/cumm [facility] MPV 12.7(H) 9.1 - 12.3 fL [facility] RBC 3.01(L) 3.90 - 5.20 M/cumm [facility] MCV 99.0(H) 81.3 - 96.4 fL [facility] MCH 29.6 27.1 - 33.3 pg [facility] MCHC 29.9(L) 32.3 - 35.7 g/dL [facility] RDW CV 17.2(H) 11.1 - 14.9 % [facility] RDW SD 60.3(H) 35.7 - 48.1 fL [facility] NRBC abs 0.02(H) 0.00 - 0.01 K/cumm [facility] Blood 11/21/2024 10:3 6 PM CDT 11/21/2024 10:49 PM CDT us Christina Fermin TILE LAYER DRAINAGE LAB BLOOD ORDERABLES Final Result [facility]ERMIN[facility] Department [place] [address] * (ABNORMAL) Phosphorus (11/21/2024 10:36 PM CDT) Pathologist [facility] Phosphorus, pl 6.5(H) 2.3 - 4.5 mg/dL Blood 11/21/2024 10:3 6 PM CDT 11/21/2024 10:49 PM CDT us Robles Alicea MD LAB BLOOD ORDERABLES Gertrude l Result [facility] [place] [address] * (ABNORMAL) Basic metabolic panel (11/21/2024 10:36 PM CDT) Pathologist [facility] Sodium 135 135 - 145 mmol/L Potassium, pl 5.5(H) 3.3 - 4.9 mmol/L [facility] Chloride 93(L) 97 - 110 mmol/L [facility] CO2 29 22 - 32 mmol/L [facility] Anion gap 13 2 - 15 mmol/L [facility] BUN 57(H) 6 - 25 mg/dL [facility] Creatinine 5.81(H) 0.60 - 1.10 mg/dL [facility] Glucose 257(H) 70 - 199 mg/dL [facility] Comment: Interpretive Data Fasting glucose >/= [...] Calcium 9.6 8.5 - 10.3 mg/dL [facility] Blood 11/21/2024 10:3 6 PM CDT 11/21/2024 10:49 PM CDT us Christina Fermin NP LAB BLOOD ORDERABLES Final Result [facility] [place] [address] * POCT glucose (11/21/2024 8:23 PM CDT) Glucose, POC 119 70 - 199 mg/dL Blood 11/21/2024 8:23 PM CDT 11/21/2024 8:23 PM CDT Shahnaz Heredia MD LAB POCT ORDERABLES - DEV ICE Final Result Performing Organization Address City/[facility] [place] [address] * POCT glucose (11/21/2024 5:24 PM CDT) Glucose, POC 188 70 - 199 mg/dL Blood 11/21/2024 5:24 PM CDT 11/21/2024 5:24 PM CDT Shahnaz Heredia MD LAB POCT ORDERABLES - DEV ICE Final Result Performing Organization Address [facility]/[place] [address] * IR Angiogram Lower Extremity Right (11/21/2024 [...] observation and inpatient dialysis. Dictated by: Juan Dale Unteriner, M.D. The radiology attending physician has personally [...] was obtained. Prior to beginning the procedure, [place] Protocol was performed to confirm the patient's [...] of the patent vessel was recorded. The 5-Djiboutian catheter was placed in the superficial femoral artery and the right lower extremity angiogram was performed in stations to the foot A 45 cm 6-Djiboutian sheath was advanced to the superficial femoral [...] was obtained. Prior to beginning the procedure, [place] Protocol was performed to confirm the patient's [...] of the patent vessel was recorded. The 5-Djiboutian catheter was placed in the superficial femoral artery and the right lower extremity angiogram was performed in stations to the foot A 45 cm 6-Djiboutian sheath was advanced to the superficial femoral [...] 318(H) 123 - 168 sec POC Performer [id number] [facility] POC Device Number [id number] [facility] Blood 11/21/2024 10:3 6 AM CDT 11/21/2024 10:36 AM CDT Shahnaz Heredia MD LAB POCT ORDERABLES - DEV ICE Final Result Performing Organization Address [facility] Co de Phone Number [facility] [place] [address] * (ABNORMAL) POCT Activated clotting time, low range (11/21/2024 9:54 AM CDT) ACT 331(H) 123 - 168 sec POC Performer [id number] [facility] POC Device Number [id number] [facility] Blood 11/21/2024 9:54 AM CDT 11/21/2024 9:54 AM CDT Shahnaz Heredia MD LAB POCT ORDERABLES - DEV ICE Final Result Performing Organization Address [facility] Co de Phone Number [facility] [place] [address] * (ABNORMAL) POCT Activated clotting time, low range (11/21/2024 9:20 AM CDT) ACT 360(H) 123 - 168 sec POC Performer [id number] [facility] POC Device Number [id number] [facility] Blood 11/21/2024 9:20 AM CDT 11/21/2024 9:20 AM CDT Shahnaz Heredia MD LAB POCT ORDERABLES - DEV ICE Final Result Performing Organization Address City/[facility]/ZIP Co de Phone Number [facility] Department [place] [address] * (ABNORMAL) eGFR (11/21/2024 6:31 AM CDT) [...] MD LAB BLOOD ORDERABLES Fi nal Result [facility] [place] [address] * (ABNORMAL) Differential, auto (11/21/2024 6:31 AM CDT) Pathologist [facility] Neutrophil abs 5.81 1.50 - 6.50 K/cumm Imm gran abs 0.03 0.00 - 0.10 K/cumm [facility] Lymphocyte abs 1.28 0.80 - 3.30 K/cumm [facility] Monocyte abs 0.89(H) 0.20 - 0.80 K/cumm [facility] Eosinophil abs 0.05 0.00 - 0.50 K/cumm [facility] Basophil abs 0.03 0.00 - 0.10 K/cumm [facility] Neutrophil pct 71.8 % [facility] Comment: Interpretive Data Percent cell count reference ranges are not reported, since discordance with absolute values may lead to misinterpretation of CBC data. Current Interpretive Data was last revised on 2017. Imm gran pct 0.4 % [facility] Comment: Interpretive Data Percent cell count reference ranges are not reported, since discordance with absolute values may lead to misinterpretation of CBC data. Current Interpretive Data was last revised on 2017. Lymphocyte pct 15.8 % [facility] Comment: Interpretive Data Percent cell count reference ranges are not reported, since discordance with absolute values may lead to misinterpretation of CBC data. Current Interpretive Data was last revised on 2017. Monocyte pct 11.0 % [facility] Comment: Interpretive Data Percent cell count reference ranges are not reported, since discordance with absolute values may lead to misinterpretation of CBC data. Current Interpretive Data was last revised on 2017. Eosinophil pct 0.6 % [facility] Comment: Interpretive Data Percent cell count reference ranges are not reported, since discordance with absolute values may lead to misinterpretation of CBC data. Current Interpretive Data was last revised on 2017. Basophil pct 0.4 % [facility] Comment: Interpretive Data Percent cell count reference ranges are not reported, since discordance with absolute values may lead to misinterpretation of CBC data. Current Interpretive Data was last revised on 2017. Blood 11/21/2024 6:31 AM CDT 11/21/2024 6:47 AM CDT us Anthony Gorman MD LAB BLOOD ORDERABLES Fi nal Result [facility] [place] [address] * (ABNORMAL) CBC with auto differential (11/21/2024 6:31 AM CDT) WBC 8.09 3.80 - 9.90 K/cumm Hgb 9.9(L) 11.9 - 15.5 g/dL [facility] Hct 32.3(L) 35.6 - 45.5 % [facility] Plt 134(L) 150 - 400 K/cumm [facility] MPV 12.6(H) 9.1 - 12.3 fL [facility] RBC 3.31(L) 3.90 - 5.20 M/cumm [facility] MCV 97.6(H) 81.3 - 96.4 fL [facility] MCH 29.9 27.1 - 33.3 pg [facility] MCHC 30.7(L) 32.3 - 35.7 g/dL [facility] RDW CV 17.2(H) 11.1 - 14.9 % [facility] RDW SD 60.4(H) 35.7 - 48.1 fL [facility] NRBC abs 0.02(H) 0.00 - 0.01 K/cumm [facility] Blood 11/21/2024 6:31 AM CDT 11/21/2024 6:47 AM CDT us Anthony Gorman MD LAB BLOOD ORDERABLES Fi nal Result [facility] [place] [address] * (ABNORMAL) Lipid panel (11/21/2024 6:31 AM CDT) Pathologist [facility] Cholesterol 99 30 - 199 mg/dL Comment: [...] on 2018. Triglycerides 90 <=149 mg/dL [facility] Comment: Interpretive Data Ages < or [...] on 2018. HDL 35(L) >=40 mg/dL [facility] Comment: Interpretive Data Ages < or [...] 2018. LDL, calculated 46 <=129 mg/dL [facility] Comment: Interpretive Data Ages < or [...] on 2024. Non-HDL Cholesterol 64 mg/dL [facility] Comment: Interpretive Data Ages < or [...] revised on 2018. Chol/HDL ratio 3 [facility] Blood 11/21/2024 6:31 AM CDT 11/21/2024 6:47 AM CDT us Anthony Gorman MD LAB BLOOD ORDERABLES Fi nal Result [facility] [place] [address] * (ABNORMAL) Basic metabolic panel (11/21/2024 6:31 AM CDT) Sodium 135 135 - 145 mmol/L Potassium, pl 4.9 3.3 - 4.9 mmol/L [facility] Chloride 92(L) 97 - 110 mmol/L [facility] CO2 32 22 - 32 mmol/L [facility] Anion gap 11 2 - 15 mmol/L [facility] BUN 50(H) 6 - 25 mg/dL [facility] Creatinine 5.26(H) 0.60 - 1.10 mg/dL [facility] Glucose 231(H) 70 - 199 mg/dL [facility] Comment: Interpretive Data Fasting glucose >/= [...] Calcium 10.3 8.5 - 10.3 mg/dL [facility] Blood 11/21/2024 6:31 AM CDT 11/21/2024 6:47 AM CDT Anthony Gorman MD LAB BLOOD ORDERABLES Fi nal Result Performing Organization Address [facility] Co de Phone Number [facility] [place] [address] * Hepatitis C antibody (08/19/2020 12:07 PM RESIDENTIAL MORTGAGE UNDERWRITER) Pathologist [facility] Hep C Ab Nonreactive Nonreactive [facility] Comment:Antibodies to HCV no t detected. Does NOT exclude the possibility of recent exposure to HCV. Blood specimen (specimen) 08/19/2020 12:07 PM RESIDENTIAL MORTGAGE UNDERWRITER 08/19/2020 12:15 PM RESIDENTIAL MORTGAGE UNDERWRITER Humza Trevizo MD LAB MICROB IOLOGY - GENERAL ORDERABLES Edited Result - Final Performing Organization Address [facility] Co de Phone Number [facility] [place] [address] * (ABNORMAL) Hemoglobin A1c (09/04/2019 12:14 AM RESIDENTIAL MORTGAGE UNDERWRITER) Pathologist [facility] Hgb A1C 8.2(H) 4.0 - 5.6 % [facility] Estimated Average Glucose 189 mg/dL [facility] Comment: The ADA recommends reporting an estimated Average Glucose (eAG) with all Hemoglobin A1c results using the equation derived from a study of 507 normal and diabetic adults. Minority populations were underrepresented and children were not included. (Diabetes Care 31:0654-8724, 2008). The eAG is not equivalent to a fasting glucose. Blood specimen (specimen) 09/04/2019 12:14 AM RESIDENTIAL MORTGAGE UNDERWRITER 09/04/2019 12:58 AM RESIDENTIAL MORTGAGE UNDERWRITER us Brandin Pena MD LAB BLOOD ORDERABLES Final Result Performing Organization Address City/State/[facility] Co de Phone Number [facility] [place] [address] from Last 3 Months or Most Recently Relevant to Health Maintenance
--- OUTSIDE RECORDS SUMMARY | 2025-02-11 13:04 | XMS_ITS | Encounter Summary ---
Author Organization [facility] Healthcare Address [address] [place] [address] Care Team Providers Care Core Baker Name Role Phone David Coppola MD Primary Care Provider [phone] Jacob Suarez MD Unavailable [phone] Marnie Lara RN Unavailable [phone] Ros Seay MD Unavailable [phone] Johana Edmond RN Unavailable Abdifatah Villa MD Unavailable Issa Clements MD Unavailable [phone] Encounter Details Date Type Department Care Team (Late st Contact Info) Description 12/11/2018 Orders Only [facility] Health Information Management [address] [place] [address] Scanning, Provider Social History Tobacco Use Types Packs/Day Years Used Date Smoking Tobacco: Never Smokeless Tobacco: Never Alcohol Use Standard Drinks/Week Comments No 0 (1 standard drink = 0.6 oz pur e alcohol) Comments No Sex and Gender Information Value Date Recorded Sex Assigned at Not on file Legal Sex Female 12:39 PM MANAGER OUTREACH Gender Identity Not on file Sexual Orientation [...] Influenza, adult 09/04/2019 09/04/2019 09/11/2019 3:05 AM MANAGER OUTREACH Abscess/Wound/Cellulitis 10/16/2019 10/16/2019 3:05 AM CDT documented as of this encounter Care Teams Core Baker Relationship Specialty Start Date End Date David Coppola MD PCP - General Family Medicine 10/29/17 Jacob Suarez MD Referring Physician Nephrology 12/20/18 Marnie Lara RN Registered Nurse Motor Vehicle Salesperson 12/20/1809/03 Ros Seay MD Legal Recruiter Cardiology 03/05/19 Johana Edmond, RN [address] [facility] [address] [place] [address] Motor Vehicle Salesperson 08/21/19 Abdifatah Villa MD [address] [facility] [address] [place] [address] Consulting Physician Cardiology 09/01/20 Issa Clements MD [address] [facility] [address] [place] [address] Referring Physician General Surgery 09/01/20 documented as of this encounter
--- OUTSIDE RECORDS SUMMARY | 2025-02-11 13:04 | XMS_ITS | Clinical Summary ---
Author Organization [facility] Address [address] [place] [address] Phone Care Team Providers Care Cost Accounting Analyst Name Role Phone David Coppola MD Primary Care Provider [phone] Allergies Active Allergy Reactions Criticality Noted Date [...] (TUMS PO) Take by mouth. Activ e pantoprazole (PROTONIX) 40 MG Pack Take 1 Tablet by mouth 2 times daily. Active Tenofovir Alafenamide Fumarate (Vemlidy) 25 MG Tablet Take 1 Tablet by mouth daily. Active B Kslpxaj-V-Qlume Acid (Triphrocaps) 1 MG Capsule Take 1 Capsule by mouth daily. Active ergocalciferol (VITAMIN D) 37516 UNIT Capsule Take 1 Capsule by mouth [...] 3 times daily. <60 or >500: notify 150-199= 2 units 200-249= 4 units 250-299= 6 units 300-349 = 8 units 350-399=10 units 400-499= 12 units Indications: Type 2 Diabetes Active Palms-3 Fatty Acids (FISH OIL PO) Take 1 Capsule by mouth daily. Active lisinopril (PRINIVIL, ZESTRIL) 10 MG Tablet Take 1 Tablet by mouth daily. 025 Discontin ued(Med List Clean Up) Encounters Date Type Department Care Team Description 01/22/2025 2:00 PM CDT Home Care Visit [address] [address] Manuela [facility] RN SN - OASIS DISCHARGE 01/15/2025 2:00 PM CDT Home Care Visit [address] [address] Manuela [facility] RN SN - PRIORITY VISIT 01/13/2025 Home Care Visit [address] [address] Lindsay Boyd RN CARE CONFERENCE 01/07/2025 Home Care Visit [address] [address] Mendy Kenny, ABENA CASE COMMUNICATION 01/06/2025 9:00 AM CDT Home Care Visit [address] [address] Manuela [facility] RN SN - WOUND VISIT 01/06/2025 Home Care Visit [address] [address] Mendy Kenny, ABENA TELEPHONE ENCOUNTER 01/06/2025 Home Care Visit [address] [address] Lindsay Boyd, RN CARE CONFERENCE 01/02/2025 Home Care Visit [address] [address] Claudia Aviles OT OT - DISCHARGE SUMMARY 01/01/2025 2:00 PM CDT Home Care Visit [address] [address] Mendy Kenny, ABENA SN - PRIORITY VISIT 12/26/2024 9:00 AM CDT Home Care Visit [address] [address] Gillian June, PT PT - DISCIPLINE DISCHARGE 12/26/2024 Travel 12/25/2024 2:30 PM CDT Home Care Visit [address] [address] Adele Fang OTA OT - DISCIPLINE DISCHARGE 12/25/2024 2:00 PM CDT Home Care Visit [address] [address] Manuela [facility] RN SN - PRIORITY VISIT 12/25/2024 Home Care Visit [address] [address] Adele Fang OTA CASE COMMUNICATION 12/22/2024 9:30 AM CDT Home Care Visit [address] [address] Joann Hudson, AGRON[employer]Y INTERNSHIP PT - HOME VISIT 12/18/2024 4:00 PM CDT Home Care Visit [address] [address] Manuela [facility], RN SN - PRIORITY VISIT 12/18/2024 2:30 PM CDT Home Care Visit [address] [address] Adele Fang, ROSALIO OT - HOME VISIT 12/18/2024 2:30 PM CDT Home Care Visit [address] [address] Joann Hudson, AGRON[employer]Y INTERNSHIP PT - HOME VISIT 12/17/2024 Home Care Visit [address] [address] Gillian June, PT CASE COMMUNICATION 12/16/2024 12:30 PM CDT Home Care Visit [address] [address] Adele Fang, ROSALIO OT - HOME VISIT 12/16/2024 9:30 AM CDT Home Care Visit [address] [address] Gillian June, PT PT - REASSESSMENT 12/16/2024 Travel 12/15/2024 Home Care Visit [address] [address] Mendy Kenny RN TELEPHONE ENCOUNTER 12/12/2024 10:00 AM CDT Home Care Visit [address] [address] Mendy Kenny RN SN - PRIORITY VISIT 12/11/2024 2:30 PM CDT Home Care Visit [address] [address] Joann Hudson, AGR[employer]Y INTERNSHIP PT - HOME VISIT 12/11/2024 2:00 PM CDT Home Care Visit [address] [address] Adele Fang, ROSALIO OT - HOME VISIT 12/09/2024 2:30 PM CDT Home Care Visit [address] [address] Joann Hudson, AGR[employer]Y INTERNSHIP PT - HOME VISIT 12/07/2024 Home Care Visit [address] [address] Lindsay Boyd RN CARE CONFERENCE 12/02/2024 3:30 PM CDT Home Care Visit [address] [address] Mendy Kenny, ABENA SN - PRIORITY VISIT 11/29/2024 Home Care Visit [address] [address] Lindsay Boyd, RN TELEPHONE ENCOUNTER 11/28/2024 9:00 AM CDT Home Care Visit [address] [address] Gillian June, PT PT - INITIAL EVALUATION 11/28/2024 Travel 11/27/2024 5:00 PM CDT Home Care Visit [address] [address] Claudia Aviles OT OT - INITIAL EVALUATION 11/27/2024 1:30 PM CDT Home Care Visit [address] [address] Lindsay Boyd RN SN - OASIS START OF CARE 11/27/2024 Plan of Care Documentation [address] [address] from Last 3 Months Social History Tobacco Use Types Packs/Day Years Used Date Smoking Tobacco: Never Smokeless Tobacco: Never Comments No Sex and Gender Information Value Date Recorded Sex Assigned at Not on file 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 Gender Identity Not on file Sexual Orientation Not on file Last Filed Vital Signs Vital Sign Reading Time Taken Comments Blood Pressure 122/74 01/22/2025 1:59 PM CDT Pulse 68 01/22/2025 1:59 PM CDT Temperature 37 C (98.6 F) 01/22/2025 1:59 PM CDT Respiratory Rate 18 01/22/2025 1:59 PM CDT Oxygen Saturation 98% 01/22/2025 1:59 PM CDT Inhaled Oxygen Concentration - - Weight 48.9 kg (107 lb 12.8 oz) 025 1:59 PM CDT Height 142.2 cm (4' 8) 11/27/2024 4:18 PM CDT Body Mass Index 24.17 11/27/2024 4:18 PM CDT Plan of Treatment Health Maintenance Due Date Last Done Comments DEXA Bone Density 1945 Hepatitis B Immunization (2 of 3 - 19+ 3-dose series) 05/24/2018 04/26/2018 Zoster Immunization (2 of 2) 01/06/2022 11/11/2021 SARS-COV-2 Immunization (2023- season) 2024 03/27/2024, 05/16/2023, 05/05/2022, Additional history exists Influenza Immunization (#1) 03/09/202502/07, 05/02/2023, 03/24/2020, Additional history exists Hepatitis C Virus (HCV) Screening Completed 03/28/2018 Pneumococcal Immunization (50+ years) Completed 11/11/2021, 05/08/2019, 04/09/2014 Respiratory Syncytial Virus (RSV) Immunization (Adult) Completed 07/13/2023 DTaP/Tdap/Td Immunization Discontinued 03/06/2024 TdaP Immunization Completed 03/06/2024 Human Papillomavirus (HPV) Immunization Aged Out No longer eligible based on patient's age to complete this topic Meningococcal Immunization (ACWY) Aged Out No longer eligible based on patient's age to complete this topic Rotavirus Immunization Aged Out No lo nger eligible based on patient's age to complete this topic [facility] Advance Directives * Full Code (Latest Code Status on File) Date Activated Date Inactivated Comments 12/04/2024 3:52 PM Care Teams Cost Accounting Analyst Relationship Specialty Start Date End Date David Coppola MD [facility] [address] PCP - General Family Medicine 11/22/24
[2025-02-11 13:18] VITALS: BP 156/70; PULSE 65; RESP 16; TEMP 36.8; O2SAT 93
--- NOTE | 2025-02-11 13:55 | ED_ITS ---
HPI - Weakness General Chief complaint: Weakness <Serg Carranza APRN - Last Filed: 02/11/25 15:02> Stated complaint: weakness, falls <Serg Carranza APRN - Last Filed: 02/11/25 15:02> Time Seen by Provider: 02/11/25 14:55 <Serg Carranza APRN - Last Filed: 02/11/25 15:02> 79-year-old female presents to the ER via EMS complaining of multiple falls and weakness. Patient said she had 2 falls today. Paste that she fell this morning get out of bed and EMS come in the picture back up, the later this afternoon she was getting up and fell again. Patient missed dialysis today because of it. Patient denies hitting her head, neck pain, back pain, or any injuries. Patient reports she has been feeling weaker lately. Patient denies any other symptoms.Focused HPI: GENERAL: Well-appearing, well-nourished, and in no acute distress. HEAD: Normocephalic, atraumatic. EYES: Right eye normal. Left eye with subconjunctival hemorrhage. Extraocular movements intact. Pupils PERRLA. CHEST: Clear to auscultation. ?No respiratory distress. HEART: Regular rate and rhythm.? NEURO: ?Alert and oriented x3. Patient screened in triage and initial orders placed.? ?Additional care and disposition to be based upon?diagnostic testing and treatment. <Serg Carranza APRN - Last Filed: 02/11/25 15:02> History of Present Illness HPI Narrative: Agree with HPI. Has not missed dialysis the exception today but she thinks she can make it later in the afternoon. No complaints of injury. Only weakness and cannot get up earlier in the day. Has not missed any recent dialysis appointments. <Jony Dominguez MD - Last Filed: 02/11/25 15:51> Related Data Home medications: Home Medications ?Medication ?Instructions ?Recorded ?Confirmed ?Last Taken ?Type acetaminophen 500 mg tablet See Rx Instructions PO Q4H PRN Pain 02/20/20 01/12/25 06/05/23 History (Acetaminophen Extra Strength) atorvastatin 40 mg tablet 40 mg PO DAILY 10/25/21 01/12/25 12/03/24 History vitamin B complex and vitamin C 1 cap PO DAILY 10/25/21 01/12/25 12/03/24 History no.20-folic acid 1 mg capsule (Renal Caps) liraglutide 0.6 mg/0.1 mL (18 mg/3 1.2 mg subcut HS 06/06/23 01/12/25 12/03/24 History mL) subcutaneous pen injector ([employer]toza 2-Agustín) clotrimazole 1 % topical cream 1 applic topical Q12H 09/27/23 01/12/25 12/03/24 History (Antifungal (clotrimazole)) lidocaine-prilocaine 2.5 %-2.5 % 1 applic topical ONCE 09/27/23 01/12/25 12/03/24 History topical cream biotin 5 mg capsule 5 mg PO DAILY 10/08/24 01/12/25 12/03/24 History lisinopril 10 mg tablet 10 mg PO DAILY 10/16/24 01/12/25 12/03/24 History omega 3-onn-lso-fish oil 60 mg-90 1 cap PO DAILY 01/01/25 01/12/25 Unknown History mg-500 mg capsule (Fish Oil) <Serg Carranza, ZACKERY - Last Filed: 02/11/25 15:02> Allergies/Adverse reactions: Allergies Allergy/AdvReac Type Severity Reaction Status Date / Time cephalexin Allergy Mild Rash Verified 02/11/25 13:22 enalapril Allergy Unknown cough Verified 02/11/25 13:22 pioglitazone Allergy Unknown Unknown Verified 02/11/25 13:22 cefazolin AdvReac Mild nausea/dizz Verified 02/11/25 13:22 iness tramadol AdvReac Unknown hallucinati Verified 02/11/25 13:22 ons gabapentin AdvReac Hallucinati Verified 02/11/25 13:22 ng <Serg Carranza, TRIMMER MACHINE OPERATOR - Last Filed: 02/11/25 15:02> Review of Systems 2 Review of Systems: All systems reviewed & are unremarkable except as noted in HPI and below <Jony Dominguez MD - Last Filed: 02/11/25 15:51> Constitutional: Constitutional: Reports no additional constitutional complaints <Jony Dominguez MD - Last Filed: 02/11/25 15:51> Cardiovascular: Cardiovascular: Reports no additional cardiovascular complaints <Jony Dominguez MD - Last Filed: 02/11/25 15:51> Respiratory: Respiratory: Reports no additional respiratory complaints < Jony Dominguez MD - Last Filed: 02/11/25 15:51> Gastrointestinal: Gastrointestinal: Reports no additional gastrointestinal complaints <Jony Dominguez MD - Last Filed: 02/11/25 15:51> Musculoskeletal: Musculoskeletal: Reports no additional musculoskeletal complaints <Jony Dominguez MD - Last Filed: 02/11/25 15:51> Neurologic: Reports system reviewed and no additional complaints, except as documented <Jony Dominguez MD - Last Filed: 02/11/25 15:51> [facility] Past Medical History Medical History: Medical History 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 Spinal stenosis at L4-L5 level High-grade central canal stenosis noted on MRI February 2017 Pulmonary hypertension Echocardiogram August 2019: EF 65-70 %, indeterminate left ventricular diastolic function, mild biatrial enlargement, mild mitral valve regurgitation, moderate tricuspid regurgitation, mild pulmonary hypertension with RVSP of 39 Hiatal hernia Thoracic ascending aortic aneurysm 4.[address] scan from August 2019 Anemia of chronic disease Megaloblastic anemia Paroxysmal atrial fibrillation Type 2 diabetes mellitus Hemoglobin A1c was 6.6 in July 2019. Hypertension Osteoporosis Hyperlipidemia AV fistula Left upper extremity End stage renal disease on dialysis Dialysis days are Sunday, Sunday, and Sunday. She is on the transplant list at [facility]. Osteoarthritis of both knees Staphylococcal septicemia (~2013) Closed fracture of lateral portion of right tibial plateau (~2014) <Serg Carranza APRN - Last Filed: 02/11/25 15:02> Surgical History Surgical History: Surgical History Amputated toe of left foot History of bilateral cataract extraction Amputation at midfoot 5th digit right footAnd the great toe on the left History of arthroplasty of right ankle Presence of Watchman left atrial appendage closure device History of arthroscopy (~12/07/12) wrist History of colonoscopy (~12/02/15) History of knee replacement (~2015) right <Serg Carranza APRN - Last Filed: 02/11/25 15:02> Family History Family History: Family History Father Hypertension Heart disease Mother Diabetes mellitus Hypertension Tobacco dependence Lung cancer Sibling Heart disease <Serg Carranza APRN - Last Filed: 02/11/25 15:02> Social History Social History: Social History Social History: The patient is and lives in [place]. She is originally from [place]. 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 She has 2 daughters who live in [place]. She has 1 son who lives in [facility] . She designates her daughters as her surrogate decision makers. She is a lifelong nonsmoker. No alcohol or drug abuse. Primary care physician: Dr. David Coppola Code status: Full code Smoking status: Never smoker Second hand tobacco smoke exposure: No Alcohol intake: never Substance use: never Substance use type: does not use Do You Feel Safe in your Home?: Yes Lack of Transportation: No Lack of Food: Never True Current Housing: I Do Not Have Housing Concerned About Future Housing: No Difficulty Paying Gas/Electric Bills: No Difficulty Paying for Meds: No Currently Unemployed: No Education: High School Diploma/GED Difficulty w/ Childcare or Family Care: No Gender identity (if verbalized by the patient): Female Spiritual care concerns: No Agree to blood products: Yes <Serg Carranza APRN - Last Filed: 02/11/25 15:02> Exam 2 Narrative: GENERAL: Chronically ill-appearing, well-nourished, and in no acute distress. HEAD: Normocephalic, atraumatic. ENT: Mucous membranes moist. CHEST: Clear to auscultation. No respiratory distress. HEART: Irregularly irregular rate and rhythm. Normal peripheral pulses. ABDOMEN: Soft, nontender, nondistended. EXTREMITIES: Normal range of motion. No edema. SKIN: Warm, dry, no rash. NEURO: Alert and oriented x3. PSYCH: Normal mood and affect. <Jony Dominguez MD - Last Filed: 02/11/25 15:51> Course Course Emergency Course: Discussed patient's lab abnormalities in the critical nature of them. Recommend admission hospital, some ivf, and likely dialysis here. I have have offered to call her firer bisque kiln. Patient adamantly refuses stay in the hospital or for me to contact her physician. She has arrived and is planning on taking herself straight to a dialysis appointment. I discussed the risks and that I do not feel safe just discharging her. I have interviewed and examined the patient. I have determined that the patient has the capacity to understand the information relevant to their care. The patient also understands the consequences of the various options after we discussed relevant information. I feel that the patient is able to understand the relevant information and responds appropriately to questions. I have attempted to persuade the patient to stay to receive care. The patient understands by leaving there is a possibility of , disability, or serious injury. Despite the above information the patient has made the decision to leave against medical advice. I have attempted to persuade the patient to follow up with a physician ALPHONSE. I have also notified the patient they may return at any time to the ED for further care. <Jony Dominguez MD - Last Filed: 02/11/25 15:51> Vital Signs Vital signs: Vital Signs Temperature 98.3 F 02/11/25 13:18 Pulse Rate 65 02/11/25 13:18 Respiratory Rate 16 02/11/25 13:18 Blood Pressure 156/70 H 02/11/25 13:18 Pulse Oximetry 93 02/11/25 13:18 Oxygen Delivery Room Air 02/11/25 13:18 Temperature 97.7 F 02/11/25 15:04 Pulse Rate 66 02/11/25 15:04 Respiratory Rate 16 02/11/25 15:04 Blood Pressure 133/58 L 02/11/25 15:04 Pulse Oximetry 96 02/11/25 15:04 Oxygen Delivery Room Air 02/11/25 15:04 <Serg Carranza TRIMMER MACHINE OPERATOR - Last Filed: 02/11/25 15:02> Vital Signs Temperature 98.3 F 02/11/25 13:18 Pulse Rate 65 02/11/25 13:18 Respiratory Rate 16 02/11/25 13:18 Blood Pressure 156/70 H 02/11/25 13:18 Pulse Oximetry 93 02/11/25 13:18 Oxygen Delivery Room Air 02/11/25 13:18 Temperature 97.7 F 02/11/25 15:04 Pulse Rate 66 02/11/25 15:04 Respiratory Rate 16 02/11/25 15:04 Blood Pressure 133/58 L 02/11/25 15:04 Pulse Oximetry 96 02/11/25 15:04 Oxygen Delivery Room Air 02/11/25 15:04 <Jony Dominguez MD - Last Filed: 02/11/25 15:51> MDM - Weakness Lab Data Result diagrams: 02/11/25 14:16 02/11/25 14:16 <Serg Carranza APRN - Last Filed: 02/11/25 15:02> Labs: Lab Results 02/11/25 Range/Units 14:16 WBC 7.4 (4.5-10.0) K/mm3 RBC 3.78 L (4.2-5.4) M/mm3 Hgb 11.6 L D (12.0-15.0) g/dL Hct 37.3 (37.0-47.0) % MCV 98.7 (80-100) fl MCH 30.7 (26-34) pg MCHC 31.1 L (32-36) g/dl RDW 14.7 H (11.5-14.5) % Plt Count 137 L (150-375) k/mm3 MPV 10.9 H (7.4-10.4) fl Immature Gran % (Auto) 0.3 (0-0.5) % Neut % (Auto) 72.2 (45.5-73.1) % Lymph % (Auto) 14.3 L (18.3-44.2) % Noble % (Auto) 12.5 H (2.6-8.5) % Eos % (Auto) 0.3 (0-4.4) % Baso % (Auto) 0.4 (0.2-1.2) % Lymph # (Auto) 1.05 (0.9-3.2) K/mm3 Noble # (Auto) 0.9 H (0.1-0.6) K/mm3 Eos # (Auto) 0.0 (0-0.3) K/mm3 Baso # (Auto) 0.0 (0.0-0.1) K/mm3 Abs Immat Gran (auto) 0.02 (0.00-0.031) K/mm3 Absolute Neuts (auto) 5.3 (1.3-6.7) K/mm3 Absolute Nucleated RBC 0.000 (0.0-0.012) K/mm3 Nucleated RBC % 0.0 (0.0-0.2) % Sodium 134 L (137-145) mmol/L Potassium 4.9 (3.4-5.0) mmol/L Chloride 90 L (98-107) mmol/L Carbon Dioxide 32 H (22-30) mmol/L Anion Gap 12 (4-12) mmol/L BUN 60 H D (7-17) mg/dL Creatinine 5.37 H (0.7-1.0) mg/dL Estim Creat Clear Calc Not Reportable Estimated GFR 8 L (59 - ) Glucose 132 H (65-110) mg/dL Calcium 12.3 H* (8.4-10.2) mg/dL Total Bilirubin 0.8 (0.2-1.3) mg/dL AST 62 H (14-36) U/L ALT 29 (6-35) U/L Alkaline Phosphatase 151 H (38-126) U/L Total Protein 7.0 (6.3-8.2) g/dL Albumin 4.3 (3.5-5.1) g/dL <Serg Carranza APRN - Last Filed: 02/11/25 15:02> Lab Results 02/11/25 Range/Units 14:16 WBC 7.4 (4.5-10.0) K/mm3 RBC 3.78 L (4.2-5.4) M/mm3 Hgb 11.6 L D (12.0-15.0) g/dL Hct 37.3 (37.0-47.0) % MCV 98.7 (80-100) fl MCH 30.7 (26-34) pg MCHC 31.1 L (32-36) g/dl RDW 14.7 H (11.5-14.5) % Plt Count 137 L (150-375) k/mm3 MPV 10.9 H (7.4-10.4) fl Immature Gran % (Auto) 0.3 (0-0.5) % Neut % (Auto) 72.2 (45.5-73.1) % Lymph % (Auto) 14.3 L (18.3-44.2) % Noble % (Auto) 12.5 H (2.6-8.5) % Eos % (Auto) 0.3 (0-4.4) % Baso % (Auto) 0.4 (0.2-1.2) % Lymph # (Auto) 1.05 (0.9-3.2) K/mm3 Noble # (Auto) 0.9 H (0.1-0.6) K/mm3 Eos # (Auto) 0.0 (0-0.3) K/mm3 Baso # (Auto) 0.0 (0.0-0.1) K/mm3 Abs Immat Gran (auto) 0.02 (0.00-0.031) K/mm3 Absolute Neuts (auto) 5.3 (1.3-6.7) K/mm3 Absolute Nucleated RBC 0.000 (0.0-0.012) K/mm3 Nucleated RBC % 0.0 (0.0-0.2) % Sodium 134 L (137-145) mmol/L Potassium 4.9 (3.4-5.0) mmol/L Chloride 90 L (98-107) mmol/L Carbon Dioxide 32 H (22-30) mmol/L Anion Gap 12 (4-12) mmol/L BUN 60 H D (7-17) mg/dL Creatinine 5.37 H (0.7-1.0) mg/dL Estim Creat Clear Calc Not Reportable Estimated GFR 8 L (59 - ) Glucose 132 H (65-110) mg/dL Calcium 12.3 H* (8.4-10.2) mg/dL Total Bilirubin 0.8 (0.2-1.3) mg/dL AST 62 H (14-36) U/L ALT 29 (6-35) U/L Alkaline Phosphatase 151 H (38-126) U/L Total Protein 7.0 (6.3-8.2) g/dL Albumin 4.3 (3.5-5.1) g/dL <Jony Dominguez MD - Last Filed: 02/11/25 15:51> Imaging Data Radiologist's impression: ITS Impressions Head CT 02/11/25 14:55 IMPRESSION: 1. No acute intracranial abnormality. Chest X-Ray 02/11/25 15:00 Impression: 1: Cardiomegaly with mild interstitial edema. <Jony Dominguez MD - Last Filed: 02/11/25 15:51> ECG Data EKG #1: ECG completion date: 02/11/25 <Jony Dominguez MD - Last Filed: 02/11/25 15:51> ECG completion time: 14:15 <Jony Dominguez MD - Last Filed: 02/11/25 15:51> EKG Interpretation: normal rate (70), atrial fibrillation, non-specific ST changes and right axis <Jony Dominguez MD - Last Filed: 02/11/25 15:51> Discharge Plan Discharge Clinical Impression: Hypercalcemia <Serg Carranza APRN - Last Filed: 02/11/25 15:02> Patient Disposition: Left Against Medical Advice <Serg Carranza APRN - Last Filed: 02/11/25 15:02> Condition: Guarded Prognosis <Serg Carranza APRN - Last Filed: 02/11/25 15:02> Patient Language: Bangladeshi <Serg Carranza APRN - Last Filed: 02/11/25 15:02> Prescriptions: No Action atorvastatin 40 mg tablet 40 mg PO DAILY Renal Caps 1 mg capsule 1 cap PO DAILY dicyclomine 10 mg capsule See Rx Instructions .ROUTE .COMPLEX Qty: 60 5RF Dose Instruction: TAKE 1 CAPSULE BY MOUTH TWICE DAILY NEEDED FOR ABDOMINAL PAIN Rx Instructions: TAKE 1 CAPSULE BY MOUTH TWICE DAILY NEEDED FOR ABDOMINAL PAIN omega 9-rca-vaj-fish oil [Fish Oil] 60-90-500 mg capsule 1 cap PO DAILY (DME) rollator See Rx Instructions .Route .MEDSUPPLY Qty: 1 0RF Rx Instructions: As directed Prolia 60 mg/mL syringe 60 mg subcut [id number] Qty: 1 1RF Patient Comments: Due this month (May). Gets from primary care Doctor. can have caregiver bring in clotrimazole [Antifungal (clotrimazole)] 1 % cream 1 applic topical Q12H lidocaine-prilocaine 2.5-2.5 % cream 1 applic topical ONCE ergocalciferol (vitamin D2) 1,250 mcg (50,000 unit) capsule See Rx Instructions .ROUTE .COMPLEX Qty: 13 2RF Dose Instruction: Take 1 capsule by mouth once a week Patient Comments: Saturdays Rx Instructions: Take 1 capsule by mouth once a week liraglutide [[employer]za 2-Agustín] 0.6 mg/0.1 mL (18 mg/3 mL) pen injector 1.2 mg subcut HS Rx Instructions: INJECT 1.8 MG (0.3 ML) SUB-Q AT BEDTIME. For diabetes acetaminophen [Acetaminophen Extra Strength] 500 mg Tablet See Rx Instructions PO Q4H PRN (Reason: Pain) Rx Instructions: 325 orally every 4 hours PRN; (DME) blood sugar diagnostic Strip See Rx Instructions .ROUTE .MEDSUPPLY Qty: 500 3RF Rx Instructions: As directed test 6 x day (DME) hortencia strickland See Rx Instructions .Route .MEDSUPPLY Qty: 1 0RF Rx Instructions: As directed (DME) Assited gait device See Rx Instructions .Route .MEDSUPPLY Qty: 1 0RF Rx Instructions: Fer Strickland Januvia 100 mg tablet 100 mg PO DAILY Qty: 90 1RF biotin 5 mg capsule 5 mg PO DAILY (DME) blood sugar diagnostic Strip See Rx Instructions .Route Qty: 500 2RF Rx Instructions: Use to check blood sugars 6 times a day lisinopril 10 mg tablet 10 mg PO DAILY tenofovir alafenamide 25 mg tablet 25 mg PO DAILY Qty: 90 2RF Rx Instructions: Take every day at suppertime with the meal tobramycin 0.3 % drops 1 drp EACH EYE Q4H Qty: 5 1RF omega 2-doy-ecf-fish oil [Fish Oil] 1,000 (120-180) mg capsule 1 cap PO DAILY Qty: 90 3RF trazodone 50 mg tablet 100 mg PO QHS Qty: 180 1RF pantoprazole 40 mg tablet,delayed release (DR/EC) 40 mg PO Q12HR Qty: 60 5RF (DME) pen needle, diabetic 32 gauge x 5/32 needle See Rx Instructions .ROUTE .COMPLEX Qty: 100 3RF Dose Instruction: USE DIRECTED Rx Instructions: USE DIRECTED insulin degludec [Tresiba FlexTouch U-100] 100 unit/mL (3 mL) insulin pen 10 unit subcut HS Qty: 15 3RF <Serg Carranza APRN - Last Filed: 02/11/25 15:02> Follow-up/Referrals: David Coppola MD [Primary Care Provider] - <Serg Carranza APRN - Last Filed: 02/11/25 15:02>
--- NOTE | 2025-02-11 14:03 | ECG_ITS ---
Test Date: 2025-02-11 14:15:12 Measurements Intervals [place] Rate: 70 P: 0 HI: 0 QRS: 107 QRSD: 89 T: 50 QT: 383 QTc: 415 Interpretive Statements ATRIAL FIBRILLATION RIGHT AXIS DEVIATION INCOMPLETE RIGHT BUNDLE BRANCH BLOCK BORDERLINE ST-T WAVE ABNORMALITY- INFERIOR LEADS BASELINE ARTIFACT- I, III, AVR, AVL, AVF, V1-V6 ABNORMAL ECG COMPARED WITH PRIOR ECG 07-30-24 14:49 NO SIGNIFICANT CHANGE Electronically Signed On 02-11-2025 15:01:55 CDT by Danny Soliz D.O.
[2025-02-11 14:22] LABS: Hematocrit 37.3 % (37.0-47.0); Hemoglobin 11.6 g/dL (12.0-15.0); Immature Granulocyte Percent A 0.3 % (0-0.5); Lymphocytes Absolute Auto 1.05 K/mm3 (0.9-3.2); Mean Corpuscular HGB Conc 31.1 g/dl (32-36); Mean Corpuscular Hemoglobin 30.7 pg (26-34); Mean Corpuscular Volume 98.7 fl (80-100); Nucleated Red Blood Cells Absolute Auto 0.000 K/mm3 (0.0-0.012); Nucleated Red Blood Cells Perc 0.0 % (0.0-0.2); Platelet Count Result 137 k/mm3 (150-375); Red Blood Count 3.78 M/mm3 (4.2-5.4); White Blood Count 7.4 K/mm3 (4.5-10.0)
[2025-02-11 14:44] LABS: Alanine Aminotransferase 29 U/L (6-35); Albumin Level 4.3 g/dL (3.5-5.1); Alkaline Phosphatase 151 U/L (38-126); Anion Gap 12 mmol/L (4-12); Aspartate Amino Transferase 62 U/L (14-36); Bilirubin,Total 0.8 mg/dL (0.2-1.3); Blood Urea Nitrogen 60 mg/dL (7-17); Calcium 12.3 mg/dL (8.4-10.2); Carbon Dioxide 32 mmol/L (22-30); Chloride 90 mmol/L (98-107); Estimated Glomerular Filt Rate 8; Glucose 132 mg/dL (65-110); Potassium 4.9 mmol/L (3.4-5.0); Sodium 134 mmol/L (137-145); Total Protein 7.0 g/dL (6.3-8.2)
[2025-02-11 15:04] VITALS: BP 133/58; PULSE 66; RESP 16; TEMP 36.5; O2SAT 96
--- OUTSIDE RECORDS SUMMARY | 2025-02-11 16:56 | XMS_ITS | Encounter Summary ---
Author Organization [facility] Address [address] [place] [address] Phone Care Team Providers Care Account Manager [id number] Name Role Phone David Coppola MD Primary Care Provider [phone] David Coppola MD Primary Care Provider [phone] David Coppola MD Primary Care Provider + [phone] David Coppola MD Primary Care Provider [phone] Unknown, Notinfile Primary Care Provider Unavail able David Coppola MD Primary Care Provider [phone] Jacob Suarez MD Unavailable [phone] Marnie Lara RN Unavailable Ros Seay MD Unavailable [phone] Johana Edmond RN Unavailable [phone] Abdifatah Villa MD Unavailable Issa Clements MD Unavailable [phone] Encounter Details Date Type Department Care Team (Latest Contact Info) Description 12/16/1980 Orders Only [facility] Scanning, Provider Social History Tobacco Use Types Packs/Day Years Used Date Smoking Tobacco: Never Assessed Comments Unknown Sex and Gender Information Value Date Recorded Sex Assigned at Not on file Legal Sex 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 Gender Identity Not on file Sexual [...] Influenza, adult 09/04/2019 09/04/2019 09/11/2019 3:05 AM DIGITAL STRATEGY SPECIALIST Abscess/Wound/Cellulitis 10/16/2019 10/16/2019 3:05 AM CDT documented as of this encounter Care Teams Account Manager B2B Relationship Specialty Start Date End Date David [...] Nephrology 12/20/18 Marnie Lara, RN Registered Nurse Linux Architect 12/20/1809/03 Ros Seay MD Medical Reception Cardiology 03/05/19 Johana Edmond, RN [address] [facility] [address] [place] [address] Linux Architect 08/21/19 Abdifatah Villa MD [address] [facility] [address] [facility] [address] [facility] [address], [facility] [address] [place] [address] Consulting Physician Cardiology 09/01/20 Issa Clements MD [address] [facility] [address] [place] [address] Referring Physician General Surgery 09/01/20 documented as of this encounter
--- OUTSIDE RECORDS SUMMARY | 2025-02-11 16:56 | XMS_ITS | Clinical Summary ---
Author Organization [facility] [address] Address [address] [place] [address] Care Team Providers Care Compound Worker Name Role Phone David Coppola MD Primary Care Provider [phone] Jacob Suarez MD Unavailable [phone] Ros Seay MD Unavailable [phone] Abdifatah Villa MD Unavailable Issa Clements MD Unavailable [phone] Allergies Active Allergy Reactions Criticality Noted [...] GIB. Patients daughter reports recent admission to [facility] due to concern for GIB. Patient followed up with her outpatient GI. Planning for EGD at the end of November - continue PPI. Assessment & Plan (11/21/2024 3:03 PM CDT): History of peptic ulcer with GIB. Patients daughter reports recent admission to [facility] due to concern for GIB. Patient followed up with her outpatient GI. Planning for EGD at the end of November - closely monitor for bleeding due to starting asa and Plavix as above - continue PPI Assessment & Plan (08/28/2024 1:08 PM COMMERCIAL SHEET METAL FOREMAN): History of peptic ulcer with GIB Denies sx continue PPI Heart valve disease 04/06/2023 History of GI bleed 02/04/2023 Bradycardia 09/29/2022 Bleeding 09/29/2022 Idiopathic hypotension 09/13/2021 Complication of arteriovenous dialysis fistula 0 09/07/2020 Type 2 diabetes mellitus wit h diabetic peripheral angiopathy and gangrene, without long-term current use of insulin 08/21/2020 Assessment & Plan (08/28/2024 1:05 PM COMMERCIAL SHEET METAL FOREMAN): Home regimen Januvia, tresiba 10 and Victoza. Reviewed PCP records noted hypoglycemia last hospital admit with basal insulins continued Will continue januvia and hold tresiba and victoza SSI Family history of ischemic h eart disease and other diseases of the circulatory system 11/27/2019 Critical limb ischemia of right lower extremity 10/14/2019 Overview (10/14/2019): Added automatically from request for surgery [id number] Assessment & Plan (08/28/2024 12:59 PM COMMERCIAL SHEET METAL FOREMAN): S/p uncomplicated balloon angioplasty of the AT, [...] (10/14/2019): Added automatically from request for surgery [id number] Presence of Watchman left atrial appendage closu re device 08/29/2018 Atrial fibrillation, permanent 06/13/2018 Overview (06/13/2018): Added automatically from request for surgery [id number] Assessment & Plan (11/22/2024 1:43 PM CDT): Rate controlled and s/p Watchman due to prior GIB. - continue home coreg as below. Assessment & Plan (11/21/2024 3:39 PM CDT): Rate controlled and s/p Watchman due to prior GIB. - continue home coreg as below Assessment & Plan (08/28/2024 1:03 PM COMMERCIAL SHEET METAL FOREMAN): Follows with [facility] cardiology. Rate controlled and s/p Watchman due to prior severe GIB Recently stopped coreg due to bradycardia ASA and plavix to start per IR recs post revascularization Assessment & Plan (07/24/2018 9:29 AM COMMERCIAL SHEET METAL FOREMAN): Continue coreg. S/p Watchmann DAVIDA occluder implant for future deescalate anticoagulation. Continue apixiban for now as per EP. Post procedure CXR. 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 Resume as able. Assessment & Plan (11/21/2024 3:03 PM CDT): Continue home lisinopril and coreg Assessment & Plan (07/24/2018 9:27 AM COMMERCIAL SHEET METAL FOREMAN): Continue home meds and dialysis. Hyperlipidemia associated [...] today Assessment & Plan (08/29/2024 4:04 PM COMMERCIAL SHEET METAL FOREMAN): Routine M/W/F r brachial fistula (has required multiple dilations last at [facility] 07/2024 Feeling well post procedure denies dyspnea. Renal consulted for HD prior to discharge Assessment & Plan (07/24/2018 9:26 AM COMMERCIAL SHEET METAL FOREMAN): HD as per renal consult. Resume outpt [...] Resolved Date Coronary artery disease invo lving tribe coronary artery of tribe heart without angina pectoris 03/07/2021 03/07/2021 Preoperative cardiovascular examination 03/07/2021 09/29/2022 Hypoxia 11/27/2019 04/03/2023 Toe ulcer, left, with unspecified severity 09/16/2018 03/07/2021 Overview (09/16/2018): Added automatically from request for surgery [id number] Cough 11/10/2017 03/07/2021 Lumbago 06/04/2017 03/07/2021 Pain [...] Description 01/13/2025 1:30 PM CDT Office Visit [facility] Cardiology at [address] [place] [address] David Rodriguez MD Atrial fibrillation, permanent (HCC) (Primary Dx) 01/06/2025 Orders Only [facility] [address] [place] [address] Alena Fontenot RN PAD (peripheral artery disease) (Primary Dx) 01/05/2025 Telephone [facility] [address] [place] [address] Alena Fontenot RN 12/23/2024 9:02 AM CDT - 12/23/2024 11:59 PM CDT Hospital Encounter Vascular Lab [id number] [place] [address] Atherosclerosis of tribe arteries of extremities with intermittent claudication, right leg; Atherosclerosis of tribe arteries of extremities with rest pain, bilateral legs (HCC) Discharge Disposition: Discharge to home or self care 12/23/2024 9:02 AM CDT - 12/23/2024 11:59 PM CDT Hospital Encounter Vascular Lab [id number] [place] [address] Atherosclerosis of tribe arteries of extremities with rest pain, bilateral legs (HCC); Atherosclerosis of tribe arteries of extremities with rest pain, left leg (HCC) Discharge Disposition: Discharge to home or self care 11/28/2024 Telephone [facility] [address] [place] [address] Alena Fontenot, RN 11/27/2024 Orders Only [facility] [address] [place] [address] Alena Fontenot, RN Atherosclerosis of tribe arteries of extremities with intermittent claudication, right leg (Primary Dx); Atherosclerosis of tribe arteries of extremities with rest pain, bilateral legs (HCC); Atherosclerosis of tribe arteries of extremities with rest pain, left leg (HCC) 11/27/2024 Telephone [facility] [address] [place] [address] Alena Fontenot RN 11/21/2024 12:00 PM CDT - 11/22/2024 4:55 PM CDT Hospital [address] [address] Shahnaz Heredia MD Guevara, Carlos Javier, MD Pain and swelling of right lower extremity (Primary Dx); Non-healing wound of right lower extremity; Pain and swelling of lower extremity, right; PAD (peripheral artery disease) Discharge Disposition: Discharge to home or self care 11/21/2024 6:00 AM CDT Office Visit [address] 1st [place] [address] PAD (peripheral artery disease) 11/21/2024 Telephone Radiology [address] [place] [address] Hollie Martinez PA 11/19/2024 Telephone [facility] Scheduling [address] [place] [address] Cynthia Blankenship MD Scheduling Appointments 11/19/2024 Telephone [facility] [address] [place] [address] Yaritza Golden RN 11/18/2024 Telephone [facility] [address] [place] [address] Tomy Reynolds RN 11/17/2024 Orders Only [facility] [address] [place] [address] Alena Fontenot, ABENA PAD (peripheral artery disease) (Primary Dx) 11/17/2024 Telephone [facility] [address] [place] [address] Alena Fontenot, ABNEA 11/11/2024 Telephone [facility] [address] [place] [address] Alena Fontenot, ABENA from Last 3 Months [...] by TW Conv) Coronary artery disease Mother Donlad nary artery disease; Diabetes Mother Family history of diabetes mellitus - (Added by TW Conv) Anesthesia problems Neg Hx Relation Name Status Comments Brother of MA age 48 Father of MA age 47 Mother Social History Tobacco Use [...] often do you attend chur ch or tenriism services? 1 to 4 times per year 09/04/2019 Do you belong to any clubs o r organizations such as confucianist groups, unions, fraternal or athletic groups, or [...] on file Legal Sex Female 12:39 PM COMMERCIAL SHEET METAL FOREMAN Gender Identity Not on file Sexual Orientation [...] 09/04/2019, 05/08/2019 Medical Devices Implanted Type Area [place] Device Identifier Shelf Expiration Date Model / Serial / Lot Device Clsr 27mm Davida Watchman - [id number] - [id number] Implanted:Qty : 1 on 07/23/2018 by Mike Mccloud MD PhD at [facility] Other - see comments Left: Heart [employer] 12/13/2020 27MM-DAVIDA CLOSURE DEVICE / [id number] / [id number] Description:Left atrial appe ndage closure device Watchman [employer] [id number] Angio-Seal Vip Bondek-Plus 6fr .035in 70cm Hemostatic Latex Free - [id number] Implanted:Qty : 1 on 03/20/2018 by Abdifatah Villa MD at [employer] 12/06/2018 [id number] / / [id number] Device Davida Watchman Procedure - [id number] Implanted:Qty : 1 on 07/23/2018 by Mike Mccloud MD PhD at [facility] [employer]MPER[employer]DEVICE 1 - 3 PC / / Description:1 Device [employer] [id number] Angio-Seal Vip Bondek-Plus 6fr .035in 70cm Hemostatic Latex Free - [id number] Implanted:Qty : 1 on 09/26/2018 by Abdifatah Villa MD at [employer] 06/07/2019 [id number] / / [id number] [employer]ig [employer] [id number] Device Closure Angio-Seal Vip Bondek-Plus Polyglyd L70 Cm Od6 Fr Odsec.035 In Vascular - [id number] Implanted:Qty : 1 on 10/16/2019 by Abdifatah Villa MD at [facility] [id number] / / [employer] Device 6fr Closure Celt Acd Vascular Sterile Latex Free Disposable [facility] - [id number] Implanted:Qty : 1 on 08/28/2024 at [facility] [employer] 01/01/2027 KCLT- / / [id number] [employer] Angio-Seal Vip 6fr Closere Device [id number] - [id number] Implanted:Qty : 1 on 11/21/2024 at [facility] [employer] 03/26/2025 [id number] / / [id number] Procedures Procedure Name Priority Date/Time Associated Diagnosis Comments VL US ARTERIAL DUPLEX LOWER EXTREMITY BILATERAL Schedule Routine, Read Routine (OP Routine) 12/23/2024 11:51 AM CDT Atherosclerosis of tribe arteries of extremities with rest pain, bilateral legs (HCC) Atherosclerosis of tribe arteries of extremities with rest pain, left leg (HCC) US ARTERIAL DOPPLER LOWER EXTREMITY BILATERAL Schedule Routine, Read Routine (OP Routine) 12/23/2024 11:17 AM CDT Atherosclerosis of tribe arteries of extremities with intermittent claudication, right leg Atherosclerosis of tribe arteries of extremities with rest pain, bilateral [...] HEPATITIS C ANTIBODY Routine 08/19/2020 12:07 PM COMMERCIAL SHEET METAL FOREMAN ESRD (end stage renal disease) ([facility]) HEMOGLOBIN A1C Routine 09/04/2019 12:14 AM COMMERCIAL SHEET METAL FOREMAN from Last 3 Months or Most Recently [...] DATE: 12/23/2024 10:00 AM HISTORY: Atherosclerosis of Hopi Arteries of Extremities with Rest Pain, Bilateral [...] DATE: 12/23/2024 10:00 AM HISTORY: Atherosclerosis of Hopi Arteries of Extremities with Rest Pain, Bilateral [...] DATE: 12/23/2024 10:00 AM HISTORY: Atherosclerosis of Hopi Arteries of Extremities with Rest Pain, Bilateral [...] DATE: 12/23/2024 10:00 AM HISTORY: Atherosclerosis of Hopi Arteries of Extremities with Rest Pain, Bilateral [...] ICE Final Result Performing Organization Address City/[facility]/ZIP Co de Phone Number [facility] Department of [employer] [place] [address] * (ABNORMAL) POCT glucose (11/22/2024 8:28 AM CDT) Glucose, POC 230(H) 70 - 199 mg/dL Blood 11/22/2024 8:28 AM CDT 11/22/2024 8:[address] [facility] Shahnaz Heredia MD LAB POCT ORDERABLES - DEV ICE Final Result Performing Organization Address City/[facility]/ZIP Co de Phone Number [facility] Department [place] [address] * (ABNORMAL) eGFR (11/22/2024 7:56 AM CDT) [...] Final R esult Performing Organization Address City/[facility]/ZIP Co de Phone Number [facility] Department [place] [address] * Hepatitis B Surface Antigen Blood (11/22/2024 7:56 AM CDT) Pathologist [facility] HepBsAg Nonreactive Nonreactive Blood 11/22/2024 7:56 AM CDT 11/22/2024 8:36 AM CDT Nina Hopson MD LAB MICROB IOLOGY - GENERAL ORDERABLES Edited Result - Final Performing Organization Address City/[facility]/ZIP Co de Phone Number [facility] Department [place] [address] * (ABNORMAL) CBC without differential (11/22/2024 7:56 AM CDT) WBC 7.32 3.80 - 9.90 K/cumm Hgb 8.6(L) 11.9 - 15.5 g/dL [facility] Hct 28.8(L) 35.6 - 45.5 % [facility] Plt 111(L) 150 - 400 K/cumm [facility] MPV 12.6(H) 9.1 - 12.3 fL [facility] RBC 2.91(L) 3.90 - 5.20 M/cumm [facility] MCV 99.0(H) 81.3 - 96.4 fL [facility] MCH 29.6 27.1 - 33.3 pg [facility] MCHC 29.9(L) 32.3 - 35.7 g/dL [facility] RDW CV 17.2(H) 11.1 - 14.9 % [facility] RDW SD 60.7(H) 35.7 - 48.1 fL [facility] NRBC abs 0.00 0.00 - 0.01 K/cumm [facility] Blood 11/22/2024 7:56 AM CDT 11/22/2024 8:37 AM CDT us Tomy GUADARRAMA LAB BLOOD ORDERABLES Final R esult Performing Organization Address City/State/[facility] Co de Phone Number [facility] Department [place] [address] * (ABNORMAL) Basic metabolic panel (11/22/2024 7:56 AM CDT) Sodium 131(L) 135 - 145 mmol/L Potassium, pl 5.5(H) 3.3 - 4.9 mmol/L [facility] Chloride 92(L) 97 - 110 mmol/L [facility] CO2 29 22 - 32 mmol/L [facility] Anion gap 10 2 - 15 mmol/L [facility] BUN 58(H) 6 - 25 mg/dL [facility] Creatinine 6.13(H) 0.60 - 1.10 mg/dL [facility] Glucose 257(H) 70 - 199 mg/dL [facility] Comment: Interpretive Data Fasting glucose >/= [...] PA LAB BLOOD ORDERABLES Final R esult [facility] Department of [employer] [place] [address] * (ABNORMAL) eGFR (11/21/2024 10:36 PM CDT) [...] 11/21/2024 10:49 PM CDT us Christina Fermin BANK CREDIT CARD COLLECTION CLERK LAB BLOOD ORDERABLES Final Result Performing Organization Address City/[facility]/ZIP Co de Phone Number [facility] Department [place] [address] * (ABNORMAL) CBC without differential (11/21/2024 10:36 PM CDT) WBC 8.51 3.80 - 9.90 K/cumm Hgb 8.9(L) 11.9 - 15.5 g/dL [facility] Hct 29.8(L) 35.6 - 45.5 % [facility] Plt 112(L) 150 - 400 K/cumm [facility] MPV 12.7(H) 9.1 - 12.3 fL [facility] RBC 3.01(L) 3.90 - 5.20 M/cumm [facility] MCV 99.0(H) 81.3 - 96.4 fL [facility] MCH 29.6 27.1 - 33.3 pg [facility] MCHC 29.9(L) 32.3 - 35.7 g/dL [facility] RDW CV 17.2(H) 11.1 - 14.9 % [facility] RDW SD 60.3(H) 35.7 - 48.1 fL [facility] NRBC abs 0.02(H) 0.00 - 0.01 K/cumm [facility] Blood 11/21/2024 10:3 6 PM CDT 11/21/2024 10:49 PM CDT us Christina Fermin NP LAB BLOOD ORDERABLES Final Result [facility] Department [place] [address] * (ABNORMAL) Phosphorus (11/21/2024 10:36 PM CDT) Pathologist [facility] Phosphorus, pl 6.5(H) 2.3 - 4.5 mg/dL Blood 11/21/2024 10:3 6 PM CDT 11/21/2024 10:49 PM CDT us Robles Alicea MD LAB BLOOD ORDERABLES Gertrude l Result GUILLERMIN[facility] Department [place] [address] * (ABNORMAL) Basic metabolic panel (11/21/2024 10:36 PM CDT) Sodium 135 135 - 145 mmol/L Potassium, pl 5.5(H) 3.3 - 4.9 mmol/L [facility] Chloride 93(L) 97 - 110 mmol/L [facility] CO2 29 22 - 32 mmol/L [facility] Anion gap 13 2 - 15 mmol/L [facility] BUN 57(H) 6 - 25 mg/dL [facility] Creatinine 5.81(H) 0.60 - 1.10 mg/dL [facility] Glucose 257(H) 70 - 199 mg/dL [facility] Comment: Interpretive Data Fasting glucose >/= [...] 2022. Calcium 9.6 8.5 - 10.3 mg/dL [facility] Blood 11/21/2024 10:3 6 PM CDT 11/21/2024 10:49 PM CDT Christina Fermin NP LAB BLOOD ORDERABLES Final Result [facility] Department [place] [address] * POCT glucose (11/21/2024 8:23 PM CDT) Glucose, POC 119 70 - 199 mg/dL Blood 11/21/2024 8:23 PM CDT 11/21/2024 8:23 PM CDT Shahnaz Heredia MD LAB POCT ORDERABLES - DEV ICE Final Result Performing Organization Address City/State/[facility] Co de Phone Number [facility] [place] [address] * POCT glucose (11/21/2024 5:24 PM CDT) Glucose, POC 188 70 - 199 mg/dL Blood 11/21/2024 5:24 PM CDT 11/21/2024 5:24 PM CDT Shahnaz Heredia MD LAB POCT ORDERABLES - DEV ICE Final Result Performing Organization Address [facility] de Phone Number [facility] Department [place] [address] * IR Angiogram Lower Extremity Right (11/21/2024 [...] was obtained. Prior to beginning the procedure, [place] Protocol was performed to confirm the patient's [...] of the patent vessel was recorded. The 5-Stateless catheter was placed in the superficial femoral artery and the right lower extremity angiogram was performed in stations to the foot A 45 cm 6-Stateless sheath was advanced to the superficial femoral [...] was obtained. Prior to beginning the procedure, [place] Protocol was performed to confirm the patient's [...] of the patent vessel was recorded. The 5-Stateless catheter was placed in the superficial femoral artery and the right lower extremity angiogram was performed in stations to the foot A 45 cm 6-Stateless sheath was advanced to the superficial femoral [...] 318(H) 123 - 168 sec POC Performer [id number] [facility] POC Device Number [id number] [facility] Blood 11/21/2024 10:3 6 AM CDT 11/21/2024 10:36 AM CDT us Shahnaz Heredia MD LAB POCT ORDERABLES - DEV ICE Final Result Performing Organization Address City/[facility] Co de Phone Number [facility] [place] [address] * (ABNORMAL) POCT Activated clotting time, low range (11/21/2024 9:54 AM CDT) ACT 331(H) 123 - 168 sec POC Performer [id number] [facility] POC Device Number [id number] [facility] Blood 11/21/2024 9:54 AM CDT 11/21/2024 9:54 AM CDT us Shahnaz Heredia MD LAB POCT ORDERABLES - DEV ICE Final Result Performing Organization Address [facility] Co de Phone Number [facility] Department of [employer] [place] [address] * (ABNORMAL) POCT Activated clotting time, low range (11/21/2024 9:20 AM CDT) ACT 360(H) 123 - 168 sec POC Performer [id number] [facility] POC Device Number [id number] [facility] Blood 11/21/2024 9:20 AM CDT 11/21/2024 9:20 AM CDT us Shahnaz Heredia MD LAB POCT ORDERABLES - DEV ICE Final Result Performing Organization Address City/[facility] Co de Phone Number [facility] Department [place] [address] * (ABNORMAL) eGFR (11/21/2024 6:31 AM CDT) Pathologist [facility] eGFR 8(L) >=60 mL/min/1. 73 m2 [...] MD LAB BLOOD ORDERABLES Fi nal Result [facility] Department [place] [address] * (ABNORMAL) Differential, auto (11/21/2024 6:31 AM CDT) Pathologist [facility] Neutrophil abs 5.81 1.50 - 6.50 K/cumm Imm gran abs 0.03 0.00 - 0.10 K/cumm [facility] Lymphocyte abs 1.28 0.80 - 3.30 K/cumm [facility] Monocyte abs 0.89(H) 0.20 - 0.80 K/cumm [facility] Eosinophil abs 0.05 0.00 - 0.50 K/cumm [facility] Basophil abs 0.03 0.00 - 0.10 K/cumm [facility] Neutrophil pct 71.8 % [facility] Comment: Interpretive Data Percent cell count reference ranges are not reported, since discordance with absolute values may lead to misinterpretation of CBC data. Current Interpretive Data was last revised on 2017. Imm gran pct 0.4 % [facility] Comment: Interpretive Data Percent cell count reference ranges are not reported, since discordance with absolute values may lead to misinterpretation of CBC data. Current Interpretive Data was last revised on 2017. Lymphocyte pct 15.8 % [facility] Comment: Interpretive Data Percent cell count reference ranges are not reported, since discordance with absolute values may lead to misinterpretation of CBC data. Current Interpretive Data was last revised on 2017. Monocyte pct 11.0 % [facility] Comment: Interpretive Data Percent cell count reference ranges are not reported, since discordance with absolute values may lead to misinterpretation of CBC data. Current Interpretive Data was last revised on 2017. Eosinophil pct 0.6 % [facility] Comment: Interpretive Data Percent cell count reference ranges are not reported, since discordance with absolute values may lead to misinterpretation of CBC data. Current Interpretive Data was last revised on 2017. Basophil pct 0.4 % [facility] Comment: Interpretive Data Percent cell count reference ranges are not reported, since discordance with absolute values may lead to misinterpretation of CBC data. Current Interpretive Data was last revised on 2017. Blood 11/21/2024 6:31 AM CDT 11/21/2024 6:47 AM CDT us Anthony Gorman MD LAB BLOOD ORDERABLES Fi nal Result [facility] Department [place] [address] * (ABNORMAL) CBC with auto differential (11/21/2024 6:31 AM CDT) WBC 8.09 3.80 - 9.90 K/cumm Hgb 9.9(L) 11.9 - 15.5 g/dL [facility] Hct 32.3(L) 35.6 - 45.5 % [facility] Plt 134(L) 150 - 400 K/cumm [facility] MPV 12.6(H) 9.1 - 12.3 fL [facility] RBC 3.31(L) 3.90 - 5.20 M/cumm [facility] MCV 97.6(H) 81.3 - 96.4 fL [facility] MCH 29.9 27.1 - 33.3 pg [facility] MCHC 30.7(L) 32.3 - 35.7 g/dL [facility] RDW CV 17.2(H) 11.1 - 14.9 % [facility] RDW SD 60.4(H) 35.7 - 48.1 fL [facility] NRBC abs 0.02(H) 0.00 - 0.01 K/cumm [facility] Blood 11/21/2024 6:31 AM CDT 11/21/2024 6:47 AM CDT us Anthony Gorman MD LAB BLOOD ORDERABLES Fi nal Result [facility] Department [place] [address] * (ABNORMAL) Lipid panel (11/21/2024 6:31 AM [...] revised on 2018. Triglycerides 90 <=149 mg/dL [facility] Comment: Interpretive Data Ages < or [...] revised on 2024. Non-HDL Cholesterol 64 mg/dL [facility] Comment: Interpretive Data Ages < or [...] last revised on 2018. Chol/HDL ratio 3 [facility] Blood 11/21/2024 6:31 AM CDT 11/21/2024 6:47 AM CDT Anthony Gorman MD LAB BLOOD ORDERABLES Fi nal Result [facility] Department [place] [address] * (ABNORMAL) Basic metabolic panel (11/21/2024 6:31 AM CDT) Sodium 135 135 - 145 mmol/L Potassium, pl 4.9 3.3 - 4.9 mmol/L [facility] Chloride 92(L) 97 - 110 mmol/L [facility] CO2 32 22 - 32 mmol/L [facility] Anion gap 11 2 - 15 mmol/L [facility] BUN 50(H) 6 - 25 mg/dL [facility] Creatinine 5.26(H) 0.60 - 1.10 mg/dL [facility] Glucose 231(H) 70 - 199 mg/dL [facility] Comment: Interpretive Data Fasting glucose >/= [...] 2022. Calcium 10.3 8.5 - 10.3 mg/dL [facility] Blood 11/21/2024 6:31 AM CDT 11/21/2024 6:47 AM CDT Anthony Gorman MD LAB BLOOD ORDERABLES Fi nal Result Performing Organization Address [facility] de Phone Number [facility] Department of [employer] [place] [address] * Hepatitis C antibody (08/19/2020 12:07 PM COMMERCIAL SHEET METAL FOREMAN) [facility] Hep C Ab Nonreactive Nonreactive [facility] Comment:Antibodies to HCV no t detected. Does NOT exclude the possibility of recent exposure to HCV. Blood specimen (specimen) 08/19/2020 12:07 PM COMMERCIAL SHEET METAL FOREMAN 08/19/2020 12:15 PM COMMERCIAL SHEET METAL FOREMAN Humza Trevizo MD LAB MICROB IOLOGY - GENERAL ORDERABLES Edited Result - Final Performing Organization Address [facility] de Phone Number [facility] Department [place] [address] * (ABNORMAL) Hemoglobin A1c (09/04/2019 12:14 AM COMMERCIAL SHEET METAL FOREMAN) Pathologist [facility] Hgb A1C 8.2(H) 4.0 - 5.6 % [facility] Estimated Average Glucose 189 mg/dL [facility] Comment: The ADA recommends reporting an estimated Average Glucose (eAG) with all Hemoglobin A1c results using the equation derived from a study of 507 normal and diabetic adults. Minority populations were underrepresented and children were not included. (Diabetes Care 31:5371-6929, 2008). The eAG is not equivalent to a fasting glucose. Blood specimen (specimen) 09/04/2019 12:14 AM COMMERCIAL SHEET METAL FOREMAN 09/04/2019 12:58 AM COMMERCIAL SHEET METAL FOREMAN Brandin Pena MD LAB BLOOD ORDERABLES Final Result Performing Organization Address City/State/[facility] Co ok Phone Number [facility] Department [place] [address] from Last 3 Months or Most Recently Relevant to Health Maintenance Insurance [facility] MEDICARE ADVANTAGE IDPA MEDICARE RESEARCH [facility] MEDICARE ADVANTAGE IDIN [facility] MEDICARE ADVANTAGE IDIN Advance Directives For more information, please contact: [phone] * Full Code (Latest Code Status on File) Date Activated Date Inactivated Comments 11/21/2024 7:27 AM 11/22/2024 8:58 PM * Full Code Date Activated Date Inactivated Comments 08/28/2024 6:35 AM 08/29/2024 9:01 PM * Full Code Date Activated Date Inactivated Comments 09/03/2019 11:07 PM 09/04/2019 6:57 PM * Full Code Date Activated Date Inactivated Comments 07/23/2018 10:39 PM 07/24/2018 7:45 PM Care Teams Compound Worker Relationship Specialty Start Date End Date David Coppola MD PCP - General Family Medicine 10/29/17 Jacob Suarez MD Referring Physician Nephrology 12/20/18 Ros Seay MD Carpenter Supervisor [facility] 03/05/19 Abdifatah Villa MD [address] [facility] [address] Consulting Physician Cardiology 09/01/20 Issa Clements MD [address] [facility] [address] [place] [address] Referring Physician General Surgery 09/01/20
--- OUTSIDE RECORDS SUMMARY | 2025-02-11 16:56 | XMS_ITS | Encounter Summary ---
Author Organization [facility] Address [address] [place] [address] Care Team Providers Care Estimator And Drafter Supervisor Name Role Phone David Coppola MD Primary Care Provider + [phone] David Coppola MD Unavailable [phone] David Coppola MD Unavailable [phone] Virginie Corea RN Unavailable [phone] Encounter Details Date Type Department Care Team (Late st Contact Info) Description 04/10/2018 Nutrition [facility]ANT [address] [place] [phone] [address]/LAURA Social History Tobacco Use Types Packs/Day Years Used Date Smoking Tobacco: Never Smokeless Tobacco: Never Alcohol Use Standard Drinks/Week Comments No 0 (1 standard drink = 0.6 oz pur e alcohol) Comments No Sex and Gender Information Value Date Recorded Sex Assigned at Not on file 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 Gender Identity Not on file Sexual [...] AM CDT Appointment [facility] [address] [facility], [address] [place], [place] [id number] [place] [address] [facility] [address] [place] [address] [place] [address] [facility] [address] [place] [address] Cristo Fontenot MD [address] [place] [address] 03/17/2025 1:00 PM CDT Procedure visit [facility] [address] [place] [phone] 03/17/2025 1:30 PM CDT Office Visit [facility] [address] [place] [phone] Avis Dumont, KEG INSPECTOR-FRONT LOAD TRASH TRUCK DRIVER [address] [place] [address] [place] [address] documented as of this encounter Visit Diagnoses Not on filedocumented in this encounter Care Teams Estimator And Drafter Supervisor Relationship Specialty Start Date End Date David Coppola MD [address] [place] [phone] PCP - General 08/15/16 David Coppola MD [address] [place] [phone] Family Medicine 02/08/15 David Coppola MD [address] [place] [phone] Family Medicine 08/15/16 Virginie Corea RN Medical Lab Director 02/23/15 documented as of this encounter
--- OUTSIDE RECORDS SUMMARY | 2025-02-11 16:56 | XMS_ITS | Encounter Summary ---
Author Organization [facility] Address [address] [facility] [place] [address] Care Team Providers Care Follow Up Specialist Name Role Phone David Coppola MD Primary Care Provider +- [phone] David Coppola MD Unavailable [phone] David Coppola MD Unavailable [phone] Virginie Corea RN Unavailable Reason for Referral * Radiology Services (Routine) - Open Specialty Diagnoses / Procedures Referred By Mark t Referred To Contact Diagnoses Hepatitis B core antibody positive Procedures PROC FIBROSCAN Avis Dumont APRN-CNP [address] [place] [address] [address] [place] [address] Phone: tel: fax: Referral ID Status Reason Start Date Expiration Date Visits Re quested Visits Authorized [id number] Open 02/03/2025 02/03/2026 1 1 Encounter Details Date Type Department Care Team (Late st Contact Info) Description 02/03/2025 Orders Only [facility] [address] [facility], [place] [address] Avis Dumont APRN-CNP [address] [place] [address] [address] [place] [address] Hepatitis B core antibody positive Social History Tobacco Use Types Packs/Day Years Used Date Smoking Tobacco: Never Smokeless Tobacco: Never Alcohol Use Standard Drinks/Week Comments No 0 (1 standard drink = 0.6 oz pur e alcohol) Comments No Sex and Gender Information Value Date Recorded Sex Assigned at Not on file 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 [address] [place] [address] [place] [address] [facility] [address] [place] [address] Cristo Fontenot MD [address] [place] [address] 03/17/2025 1:00 PM CDT Procedure visit [facility] [place] [address] [place] [address], [place] [address] 03/17/2025 1:30 PM CDT Office Visit [facility] [address] [place] [phone] Avis Dumont, ELECTRICAL INSTALLATION SUPERVISOR-CARD ROOM MANAGER [address] [place] [address] [place] [address] Scheduled Orders Name Type Priority Associated Diagnoses Orde r Schedule PROC FIBROSCAN Procedures Routine Hepatitis B core antibody positive 1 Occurrences starting 02/03/2025 until 02/03/2026 documented as of this encounter Visit Diagnoses Diagnosis Hepatitis B core antibody positive- Primary Other and unspecified nonspecific immunological findings documented in this encounter Care Teams Follow Up Specialist Relationship Specialty Start Date End Date David Coppola MD [address] [place] [phone] PCP - General 08/15/16 David Coppola MD [address] [place] [phone] Family Medicine 02/08/15 David Coppola MD [address] [place] [phone] Family Medicine 08/15/16 Virginie Corea, ABENA Brewery Technician 02/23/15 documented as of this encounter
--- OUTSIDE RECORDS SUMMARY | 2025-02-11 16:57 | XMS_ITS | Encounter Summary ---
Author Organization [facility] Address [address] [facility] [place] [address] Care Team Providers Care Dining Room Host Name Role Phone David Coppola MD Primary Care Provider + [phone] David Coppola MD Unavailable [phone] David Coppola MD Unavailable [phone] Virginie Corea RN Unavailable [phone] Encounter Details Date Type Department Care Team (Late st Contact Info) Description 03/19/2023 Telephone [facility] . 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 Gender Identity Not on file Sexual [...] Info) Description 03/10/2025 11:00 AM CDT Appointment [facility] Services [address] [facility], [address] [place], [place] [phone] [place] [address] [facility] [address] [place] [phone] [place] [address] [facility] [address] [place] [phone] Cristo Fontenot MD [address] [place] [address] 03/17/2025 1:00 PM CDT Procedure visit [facility] [address] [place] [phone] 03/17/2025 1:30 PM CDT Office Visit [facility] [address] [place] [phone] Avis Dumont, RADIO MECHANIC APPRENTICE-FERMENTER [address] [place] [address] documented as of this encounter Visit Diagnoses Not on filedocumented in this encounter Care Teams Dining Room Host Relationship Specialty Start Date End Date David Coppola MD [address] [place] [phone] PCP - General 08/15/16 David Coppola MD [address] [place] [phone] Family Medicine 02/08/15 David Coppola MD [address] [place] [phone] Family Medicine 08/15/16 Virginie Corea, ABENA Cost Accounting Manager 02/23/15 documented as of this encounter
--- OUTSIDE RECORDS SUMMARY | 2025-02-11 16:57 | XMS_ITS | Clinical Summary ---
Author Organization [facility] Address [address] [place] [address] Phone Care Team Providers Care Microsoft Net Developer Name Role Phone David Coppola MD Primary Care Provider [phone] Allergies Active Allergy Reactions Criticality Noted Date [...] Comments Blood Pressure 71/53 09/01/2020 2:54 PM BUFFET MANAGER 148 /36 Pulse 72 09/01/2020 2:54 PM BUFFET MANAGER Temperature 36.4 C (97.6 F) 09/01/2020 2:54 PM BUFFET MANAGER Respiratory Rate - - Oxygen Saturation 97% 09/01/2020 2:54 PM BUFFET MANAGER Inhaled Oxygen Concentration - - Weight 56.6 kg (124 lb 11.2 oz) 09/01/2020 2:54 PM BUFFET MANAGER Height 144.8 cm (4' 9) 09/01/2020 2:54 PM BUFFET MANAGER Body Mass Index 26.98 09/01/2020 2:54 PM BUFFET MANAGER Plan of Treatment Health Maintenance Due [...] 04/09/2014 Insurance [place]ICAID [place] [facility] [id number] Care Teams Microsoft Net Developer Relationship Specialty Start Date End Date David Coppola MD PCP - General Family Practice 05/14/20
--- OUTSIDE RECORDS SUMMARY | 2025-02-11 16:57 | XMS_ITS ---
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, bilateral legs (HCC) Atherosclerosis of table mountain arteries of extremities with rest pain, left leg (HCC) US ARTERIAL DOPPLER LOWER EXTREMITY BILATERAL Schedule Routine, Read Routine (OP Routine) 12/23/2024 11:17 AM CDT Atherosclerosis of table mountain arteries of extremities with intermittent claudication, right leg Atherosclerosis of table mountain arteries of extremities with rest pain, bilateral [...] HEPATITIS C ANTIBODY Routine 08/19/2020 12:07 PM WATER AND FIRE TECHNICIAN ESRD (end stage renal disease) (HCC) HEMOGLOBIN A1C Routine 09/04/2019 12:14 AM WATER AND FIRE TECHNICIAN from Last 3 Months or Most [...] GIB. Patients daughter reports recent admission to [facility] due to concern for GIB. Patient followed up with her outpatient GI. Planning for EGD at the end of November - continue PPI. Assessment & Plan (11/21/2024 3:03 PM CDT): History of peptic ulcer with GIB. Patients daughter reports recent admission to [facility] due to concern for GIB. Patient followed up with her outpatient GI. Planning for EGD at the end of November - closely monitor for bleeding due to starting asa and Plavix as above - continue PPI Assessment & Plan (08/28/2024 1:08 PM WATER AND FIRE TECHNICIAN): History of peptic ulcer with GIB Denies sx continue PPI Heart valve disease 04/06/2023 History of GI bleed 02/04/2023 Bradycardia 09/29/2022 Bleeding 09/29/2022 Idiopathic hypotension 09/13/2021 Complication of arteriovenous dialysis fistula 0 09/07/2020 Type 2 diabetes mellitus wit h diabetic peripheral angiopathy and gangrene, without long-term current use of insulin 08/21/2020 Assessment & Plan (08/28/2024 1:05 PM WATER AND FIRE TECHNICIAN): Home regimen Januvia, tresiba 10 and Victoza. Reviewed PCP records noted hypoglycemia last hospital admit with basal insulins continued Will continue januvia and hold tresiba and victoza SSI Family history of ischemic h eart disease and other diseases of the circulatory system 11/27/2019 Critical limb ischemia of right lower extremity 10/14/2019 Overview (10/14/2019): Added automatically from request for surgery [id number] Assessment & Plan (08/28/2024 12:59 PM WATER AND FIRE TECHNICIAN): S/p uncomplicated balloon angioplasty of the [...] (10/14/2019): Added automatically from request for surgery [id number] Presence of Watchman left atrial appendage closu re device 08/29/2018 Atrial fibrillation, permanent 06/13/2018 Overview (06/13/2018): Added automatically from request for surgery [id number] Assessment & Plan (11/22/2024 1:43 PM CDT): Rate controlled and s/p Watchman due to prior GIB. - continue home coreg as below. Assessment & Plan (11/21/2024 3:39 PM CDT): Rate controlled and s/p Watchman due to prior GIB. - continue home coreg as below Assessment & Plan (08/28/2024 1:03 PM WATER AND FIRE TECHNICIAN): Follows with [facility] cardiology. Rate controlled and s/p Watchman due to prior severe GIB Recently stopped coreg due to bradycardia ASA and plavix to start per IR recs post revascularization Assessment & Plan (07/24/2018 9:29 AM WATER AND FIRE TECHNICIAN): Continue coreg. S/p Watchmann DAVIDA occluder implant for future deescalate anticoagulation. Continue apixiban for now as per EP. Post procedure CXR. 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 PAD (peripheral artery disease) 03/15/2018 Overview (03/15/2018): Added automatically from request for surgery [id number] Assessment & Plan (11/22/2024 1:43 PM CDT): [...] (03/15/2018): Added automatically from request for surgery [id number] Ischemia of foot 03/15/2018 Overview (03/15/2018): Added automatically from request for surgery [id number] Noncompliance 02/24/2018 Essential hypertension 11/10/2017 Assessment & Plan (11/22/2024 1:43 PM CDT): On lisinopril and coreg at home, holding today for lower BP. Resume as able. Assessment & Plan (11/21/2024 3:03 PM CDT): Continue home lisinopril and coreg Assessment & Plan (07/24/2018 9:27 AM WATER AND FIRE TECHNICIAN): Continue home meds and dialysis. Hyperlipidemia [...] today Assessment & Plan (08/29/2024 4:04 PM WATER AND FIRE TECHNICIAN): Routine M/W/F r brachial fistula (has required multiple dilations last at [facility] 07/2024 Feeling well post procedure denies dyspnea. Renal consulted for HD prior to discharge Assessment & Plan (07/24/2018 9:26 AM WATER AND FIRE TECHNICIAN): HD as per renal consult. Resume [...] often do you attend chur ch or druze services? 1 to 4 times per year 09/04/2019 Do you belong to any clubs o r organizations such as yarsanism groups, unions, fraternal or athletic groups, or [...] on file Legal Sex Female 12:39 PM WATER AND FIRE TECHNICIAN Gender Identity Not on file Sexual [...] DATE: 12/23/2024 10:00 AM HISTORY: Atherosclerosis of Samish Arteries of Extremities with Rest Pain, Bilateral [...] DATE: 12/23/2024 10:00 AM HISTORY: Atherosclerosis of Samish Arteries of Extremities with Rest Pain, Bilateral [...] by: Cezar Antonio MD Anthony Gorman MD [facility] US PROCEDURES Final Result * US MELISSA [...] DATE: 12/23/2024 10:00 AM HISTORY: Atherosclerosis of Samish Arteries of Extremities with Rest Pain, Bilateral [...] DATE: 12/23/2024 10:00 AM HISTORY: Atherosclerosis of Samish Arteries of Extremities with Rest Pain, Bilateral [...] 0 PM CDT 11/22/2024 12:10 PM CDT Shanhaz Heredia MD LAB POCT ORDERABLES - DEV ICE Final Result Performing Organization Address City/[facility] Co de Phone Number [facility] Department [place] [employer] [place] [address] * (ABNORMAL) POCT glucose (11/22/2024 8:28 AM CDT) Glucose, POC 230(H) 70 - 199 mg/dL Blood 11/22/2024 8:28 AM CDT 11/22/2024 8:28 AM CDT Shahnaz Heredia MD LAB POCT ORDERABLES - DEV ICE Final Result [facility] Department [place] [employer] [place] [address] * (ABNORMAL) eGFR (11/22/2024 7:56 AM CDT) [...] [facility] LAB BLOOD ORDERABLES Final [facility] [place] [employer] [place] [address] * Hepatitis B Surface Antigen Blood (11/22/2024 7:56 AM CDT) HepBsAg Nonreactive Nonreactive Blood 11/22/2024 7:56 AM CDT 11/22/2024 8:36 AM CDT Nina Hopson MD LAB MICROB IOLOGY - GENERAL ORDERABLES Edited Result - Final Performing Organization Address City/[facility]/ZIP Co de Phone Number [facility] [place] [address] * (ABNORMAL) CBC without differential (11/22/2024 7:56 AM CDT) WBC 7.32 3.80 - 9.90 K/cumm Hgb 8.6(L) 11.9 - 15.5 g/dL [facility] Hct 28.8(L) 35.6 - 45.5 % [facility] Plt 111(L) 150 - 400 K/cumm [facility] MPV 12.6(H) 9.1 - 12.3 fL [facility] RBC 2.91(L) 3.90 - 5.20 M/cumm [facility] MCV 99.0(H) 81.3 - 96.4 fL [facility] MCH 29.6 27.1 - 33.3 pg [facility] MCHC 29.9(L) 32.3 - 35.7 g/dL [facility] RDW CV 17.2(H) 11.1 - 14.9 % [facility] RDW SD 60.7(H) 35.7 - 48.1 fL [facility] NRBC abs 0.00 0.00 - 0.01 K/cumm [facility] Blood 11/22/2024 7:56 AM CDT 11/22/2024 8:37 AM CDT us Tomy [facility] LAB BLOOD ORDERABLES Final R esult [facility] [place] [address] * (ABNORMAL) Basic metabolic panel (11/22/2024 7:56 AM CDT) Sodium 131(L) 135 - 145 mmol/L Potassium, pl 5.5(H) 3.3 - 4.9 mmol/L [facility] Chloride 92(L) 97 - 110 mmol/L [facility] CO2 29 22 - 32 mmol/L [facility] Anion gap 10 2 - 15 mmol/L [facility] BUN 58(H) 6 - 25 mg/dL [facility] Creatinine 6.13(H) 0.60 - 1.10 mg/dL [facility] Glucose 257(H) 70 - 199 mg/dL [facility] Comment: Interpretive Data Fasting glucose [...] 2022. Calcium 8.8 8.5 - 10.3 mg/dL [facility] Blood 11/22/2024 7:56 AM CDT 11/22/2024 8:37 AM CDT us Tomy [facility] LAB BLOOD ORDERABLES Final R esult [facility] [place] [address] * (ABNORMAL) eGFR (11/21/2024 10:36 PM CDT) [...] 11/21/2024 10:49 PM CDT us Christina Fermin MANAGER BUSINESS INFORMATION LAB BLOOD ORDERABLES Final Result [facility] [place] [address] * (ABNORMAL) CBC without differential (11/21/2024 10:36 PM CDT) [facility] WBC 8.51 3.80 - 9.90 K/cumm Hgb 8.9(L) 11.9 - 15.5 g/dL [facility] Hct 29.8(L) 35.6 - 45.5 % [facility] Plt 112(L) 150 - 400 K/cumm [facility] MPV 12.7(H) 9.1 - 12.3 fL [facility] RBC 3.01(L) 3.90 - 5.20 M/cumm [facility] MCV 99.0(H) 81.3 - 96.4 fL [facility] MCH 29.6 27.1 - 33.3 pg [facility] MCHC 29.9(L) 32.3 - 35.7 g/dL [facility] RDW CV 17.2(H) 11.1 - 14.9 % [facility] RDW SD 60.3(H) 35.7 - 48.1 fL [facility] NRBC abs 0.02(H) 0.00 - 0.01 K/cumm [facility] Blood 11/21/2024 10:3 6 PM CDT 11/21/2024 10:49 PM CDT us Christina Fermin MANAGER BUSINESS INFORMATION LAB BLOOD ORDERABLES Final Result GUILLERMINA [facility] [place] [address] * (ABNORMAL) Phosphorus (11/21/2024 10:36 PM CDT) Pathologist [facility] Phosphorus, pl 6.5(H) 2.3 - 4.5 mg/dL Blood 11/21/2024 10:3 6 PM CDT 11/21/2024 10:49 PM CDT us Robles Alicea MD LAB BLOOD ORDERABLES Gertrude l Result [facility] [place] [address] * (ABNORMAL) Basic metabolic panel (11/21/2024 10:36 PM CDT) Pathologist [facility] Sodium 135 135 - 145 mmol/L Potassium, pl 5.5(H) 3.3 - 4.9 mmol/L [facility] Chloride 93(L) 97 - 110 mmol/L [facility] CO2 29 22 - 32 mmol/L [facility] Anion gap 13 2 - 15 mmol/L [facility] BUN 57(H) 6 - 25 mg/dL [facility] Creatinine 5.81(H) 0.60 - 1.10 mg/dL [facility] Glucose 257(H) 70 - 199 mg/dL [facility] Comment: Interpretive Data Fasting glucose [...] Calcium 9.6 8.5 - 10.3 mg/dL [facility] Blood 11/21/2024 10:3 6 PM CDT 11/21/2024 10:49 PM CDT us Christina Fermin NP LAB BLOOD ORDERABLES Final Result CERNER [facility] [place] [address] * POCT glucose (11/21/2024 8:23 PM CDT) Glucose, POC 119 70 - 199 mg/dL Blood 11/21/2024 8:23 PM CDT 11/21/2024 8:23 PM CDT Shahnaz Heredia MD LAB POCT ORDERABLES - DEV ICE Final Result Performing Organization Address City/[facility] [place] [address] * POCT glucose (11/21/2024 5:24 PM CDT) Glucose, POC 188 70 - 199 mg/dL Blood 11/21/2024 5:24 PM CDT 11/21/2024 5:24 PM CDT Shahnaz Heredia MD LAB POCT ORDERABLES - DEV ICE Final Result Performing Organization Address [facility] [place] [address] * IR Angiogram Lower Extremity Right (11/21/2024 [...] was obtained. Prior to beginning the procedure, Stur[place] Protocol was performed to confirm the patient's [...] was obtained. Prior to beginning the procedure, [place] Protocol was performed to confirm the patient's [...] 318(H) 123 - 168 sec POC Performer [id number] [facility] POC Device Number [id number] [facility] Blood 11/21/2024 10:3 6 AM CDT 11/21/2024 10:36 AM CDT Shahnaz Heredia MD LAB POCT ORDERABLES - DEV ICE Final Result Performing Organization Address [facility] Co de Phone Number [facility] Department [place] [employer] [place] [address] * (ABNORMAL) POCT Activated clotting time, low range (11/21/2024 9:54 AM CDT) ACT 331(H) 123 - 168 sec POC Performer [id number] [facility] POC Device Number [id number] [facility] Blood 11/21/2024 9:54 AM CDT 11/21/2024 9:54 AM CDT Shahnaz Heredia MD LAB POCT ORDERABLES - DEV ICE Final Result Performing Organization Address [facility] Co de Phone Number [facility] [place] [employer] [place] [address] * (ABNORMAL) POCT Activated clotting time, low range (11/21/2024 9:20 AM CDT) ACT 360(H) 123 - 168 sec POC Performer [id number] [facility] POC Device Number [id number] [facility] Blood 11/21/2024 9:20 AM CDT 11/21/2024 9:20 AM CDT Shahnaz Heredia MD LAB POCT ORDERABLES - DEV ICE Final Result Performing Organization Address City/[facility]/ZIP Co de Phone Number [facility] [place] [address] * (ABNORMAL) eGFR (11/21/2024 6:31 AM CDT) [...] MD LAB BLOOD ORDERABLES Fi nal Result [facility] [place] [address] * (ABNORMAL) Differential, auto (11/21/2024 6:31 AM CDT) Pathologist [facility] Neutrophil abs 5.81 1.50 - 6.50 K/cumm Imm gran abs 0.03 0.00 - 0.10 K/cumm [facility] Lymphocyte abs 1.28 0.80 - 3.30 K/cumm [facility] Monocyte abs 0.89(H) 0.20 - 0.80 K/cumm [facility] Eosinophil abs 0.05 0.00 - 0.50 K/cumm [facility] Basophil abs 0.03 0.00 - 0.10 K/cumm [facility] Neutrophil pct 71.8 % [facility] Comment: Interpretive Data Percent cell count reference ranges are not reported, since discordance with absolute values may lead to misinterpretation of CBC data. Current Interpretive Data was last revised on 2017. Imm gran pct 0.4 % [facility] Comment: Interpretive Data Percent cell count reference ranges are not reported, since discordance with absolute values may lead to misinterpretation of CBC data. Current Interpretive Data was last revised on 2017. Lymphocyte pct 15.8 % [facility] Comment: Interpretive Data Percent cell count reference ranges are not reported, since discordance with absolute values may lead to misinterpretation of CBC data. Current Interpretive Data was last revised on 2017. Monocyte pct 11.0 % [facility] Comment: Interpretive Data Percent cell count reference ranges are not reported, since discordance with absolute values may lead to misinterpretation of CBC data. Current Interpretive Data was last revised on 2017. Eosinophil pct 0.6 % [facility] Comment: Interpretive Data Percent cell count reference ranges are not reported, since discordance with absolute values may lead to misinterpretation of CBC data. Current Interpretive Data was last revised on 2017. Basophil pct 0.4 % [facility] Comment: Interpretive Data Percent cell count reference ranges are not reported, since discordance with absolute values may lead to misinterpretation of CBC data. Current Interpretive Data was last revised on 2017. Blood 11/21/2024 6:31 AM CDT 11/21/2024 6:47 AM CDT us Anthony Gorman MD LAB BLOOD ORDERABLES Fi nal Result [facility] [place] [address] * (ABNORMAL) CBC with auto differential (11/21/2024 6:31 AM CDT) WBC 8.09 3.80 - 9.90 K/cumm Hgb 9.9(L) 11.9 - 15.5 g/dL [facility] Hct 32.3(L) 35.6 - 45.5 % [facility] Plt 134(L) 150 - 400 K/cumm [facility] MPV 12.6(H) 9.1 - 12.3 fL [facility] RBC 3.31(L) 3.90 - 5.20 M/cumm [facility] MCV 97.6(H) 81.3 - 96.4 fL [facility] MCH 29.9 27.1 - 33.3 pg [facility] MCHC 30.7(L) 32.3 - 35.7 g/dL [facility] RDW CV 17.2(H) 11.1 - 14.9 % [facility] RDW SD 60.4(H) 35.7 - 48.1 fL [facility] NRBC abs 0.02(H) 0.00 - 0.01 K/cumm [facility] Blood 11/21/2024 6:31 AM CDT 11/21/2024 6:47 AM CDT us Anthony Gorman MD LAB BLOOD ORDERABLES Fi nal Result [facility] [place] [address] * (ABNORMAL) Lipid panel (11/21/2024 6:31 AM CDT) Pathologist [facility] Cholesterol 99 30 - 199 mg/dL Comment: [...] on 2018. Triglycerides 90 <=149 mg/dL [facility] Comment: Interpretive Data Ages < [...] revised on 2018. HDL 35(L) >=40 mg/dL [facility] Comment: Interpretive Data Ages < [...] on 2018. LDL, calculated 46 <=129 mg/dL [facility] Comment: Interpretive Data Ages < [...] on 2024. Non-HDL Cholesterol 64 mg/dL [facility] Comment: Interpretive Data Ages < [...] revised on 2018. Chol/HDL ratio 3 [facility] Blood 11/21/2024 6:31 AM CDT 11/21/2024 6:47 AM CDT us Anthony Gorman MD LAB BLOOD ORDERABLES Fi nal Result [facility] [place] [address] * (ABNORMAL) Basic metabolic panel (11/21/2024 6:31 AM CDT) Sodium 135 135 - 145 mmol/L Potassium, pl 4.9 3.3 - 4.9 mmol/L [facility] Chloride 92(L) 97 - 110 mmol/L [facility] CO2 32 22 - 32 mmol/L [facility] Anion gap 11 2 - 15 mmol/L [facility] BUN 50(H) 6 - 25 mg/dL [facility] Creatinine 5.26(H) 0.60 - 1.10 mg/dL [facility] Glucose 231(H) 70 - 199 mg/dL [facility] Comment: Interpretive Data Fasting glucose [...] Calcium 10.3 8.5 - 10.3 mg/dL [facility] Blood 11/21/2024 6:31 AM CDT 11/21/2024 6:47 AM CDT Anthony Gorman MD LAB BLOOD ORDERABLES Fi nal Result Performing Organization Address [facility] Co de Phone Number [facility] Department [place] [employer] [place] [address] * Hepatitis C antibody (08/19/2020 12:07 PM WATER AND FIRE TECHNICIAN) Pathologist [facility] Hep C Ab Nonreactive Nonreactive [facility] Comment:Antibodies to HCV no t detected. Does NOT exclude the possibility of recent exposure to HCV. Blood specimen (specimen) 08/19/2020 12:07 PM WATER AND FIRE TECHNICIAN 08/19/2020 12:15 PM WATER AND FIRE TECHNICIAN Humza Trevizo MD LAB MICROB IOLOGY - GENERAL ORDERABLES Edited Result - Final Performing Organization Address [facility] Co de Phone Number [facility] Department [place] [employer] [place] [address] * (ABNORMAL) Hemoglobin A1c (09/04/2019 12:14 AM WATER AND FIRE TECHNICIAN) Pathologist [facility] Hgb A1C 8.2(H) 4.0 - 5.6 % [facility] Estimated Average Glucose 189 mg/dL [facility] Comment: The ADA recommends reporting an estimated Average Glucose (eAG) with all Hemoglobin A1c results using the equation derived from a study of 507 normal and diabetic adults. Minority populations were underrepresented and children were not included. (Diabetes Care 31:3536-5671, 2008). The eAG is not equivalent to a fasting glucose. Blood specimen (specimen) 09/04/2019 12:14 AM WATER AND FIRE TECHNICIAN 09/04/2019 12:58 AM WATER AND FIRE TECHNICIAN us Brandin Pena MD LAB BLOOD ORDERABLES Final Result Performing Organization Address City/State/[facility] Co de Phone Number [facility] [place] [address] from Last 3 Months or Most Recently Relevant to Health Maintenance
--- OUTSIDE RECORDS SUMMARY | 2025-02-11 16:57 | XMS_ITS | Encounter Summary ---
Author Organization [facility] Address [address] [place] [address] Phone Care Team Providers Care Adding Machine Mechanic Name Role Phone David Coppola MD Primary Care Provider [phone] Jacob Suarez MD Unavailable Marnie Lara RN Unavailable Ros Seay MD Unavailable [phone] Johana Edmond RN Unavailable Abdifatah Villa MD Unavailable Issa Clements MD Unavailable [phone] Encounter Details Date Type Department Care Team (Late st Contact Info) Description 05/13/2018 Telephone [facility] Cardiology [address] [facility] [address] [place] [address] [place] [address] Cameron Haro MD [address] [place] [address] Social History Tobacco Use Types Packs/Day Years Used Date Smoking Tobacco: Never Smokeless Tobacco: Never Alcohol Use Standard Drinks/Week Comments No 0 (1 standard drink = 0.6 oz pur e alcohol) Comments No Sex and Gender Information Value Date Recorded Sex Assigned at Not on file Legal Sex Female 12:39 PM SERVICE LINE BUS CLEANER Gender Identity Not on file Sexual Orientation [...] Influenza, adult 09/04/2019 09/04/2019 09/11/2019 3:05 AM SERVICE LINE BUS CLEANER Abscess/Wound/Cellulitis 10/16/2019 10/16/2019 3:05 AM CDT documented as of this encounter Care Teams Adding Machine Mechanic Relationship Specialty Start Date End Date David Coppola MD PCP - General Family Medicine 10/29/17 Jacob Suarez MD Referring Physician Nephrology 12/20/18 Marnie Lara RN Registered Nurse [employer] 12/20/1809/03 Ros Seay MD Front Office Assistant Cardiology 03/05/19 Johana Edmond, RN [address] [facility] [address] [place] [address] [employer] 08/21/19 Abdifatah Villa MD [address] [facility] [address] [place] [address] Consulting Physician Cardiology 09/01/20 Issa Clements MD [address] [facility] [address] [place] [address] Referring Physician General Surgery 09/01/20 documented as of this encounter
--- OUTSIDE RECORDS SUMMARY | 2025-02-11 16:57 | XMS_ITS | Clinical Summary ---
Author Organization [facility] Address [address] [place] [address] Phone Care Team Providers Care Servicing Manager Name Role Phone David Coppola MD Primary Care Provider [phone] Allergies Active Allergy Reactions Criticality Noted Date [...] 1 Tablet by mouth daily. Active B Nhcsnae-W-Ykyan Acid (Triphrocaps) 1 MG Capsule Take 1 Capsule by mouth daily. Active ergocalciferol (VITAMIN D) 62449 UNIT Capsule Take 1 Capsule by mouth [...] 12 units Indications: Type 2 Diabetes Active [place]-3 Fatty Acids (FISH OIL PO) Take 1 Capsule by mouth daily. Active lisinopril (PRINIVIL, ZESTRIL) 10 MG Tablet Take 1 Tablet by mouth daily. 025 Discontin ued(Med List Clean Up) Encounters Date Type Department Care Team Description 01/22/2025 2:00 PM CDT Home Care Visit [address] [address] Manuela Martin RN SN - OASIS DISCHARGE 01/15/2025 2:00 PM CDT Home Care Visit [address] [address] Manuela Martin RN SN - PRIORITY VISIT 01/13/2025 Home Care Visit [address] [address] Lindsay Boyd RN CARE CONFERENCE 01/07/2025 Home Care Visit [address] [address] Mendy Kenny, ABENA CASE COMMUNICATION 01/06/2025 9:00 AM CDT Home Care Visit [address] [address] Manuela Martin RN SN - WOUND VISIT 01/06/2025 Home Care Visit [address] [address] Mendy Kenny, ABENA TELEPHONE ENCOUNTER 01/06/2025 Home Care Visit [address] [address] Lindsay Boyd, RN CARE CONFERENCE 01/02/2025 Home Care Visit [address] [address] Claudia Aviles OT OT - DISCHARGE SUMMARY 01/01/2025 2:00 PM CDT Home Care Visit [address] [address] Mendy Kenny, ABENA SN - PRIORITY VISIT 12/26/2024 9:00 AM CDT Home Care Visit [address] [address] Gillian June, PT PT - DISCIPLINE DISCHARGE 12/26/2024 Travel 12/25/2024 2:30 PM CDT Home Care Visit [address] [address] Adele Fang OTA OT - DISCIPLINE DISCHARGE 12/25/2024 2:00 PM CDT Home Care Visit [address] [address] Manuela Martin RN SN - PRIORITY VISIT 12/25/2024 Home Care Visit [address] [address] Adele Fang OTA CASE COMMUNICATION 12/22/2024 9:30 AM CDT Home Care Visit [address] [address] Joann Hudson, CLIENT RESOLUTION SPECIALIST PT - HOME VISIT 12/18/2024 4:00 PM CDT Home Care Visit [address] [address] Manuela Martin, RN SN - PRIORITY VISIT 12/18/2024 2:30 PM CDT Home Care Visit [address] [address] Adele Fang, ROSALIO OT - HOME VISIT 12/18/2024 2:30 PM CDT Home Care Visit [address] [address] Joann Hudson, CLIENT RESOLUTION SPECIALIST PT - HOME VISIT 12/17/2024 Home Care Visit [address] [address] Gillian June, PT CASE COMMUNICATION 12/16/2024 12:30 PM CDT Home Care Visit [address] [address] Adele Fang, ROSALIO OT - HOME VISIT 12/16/2024 9:30 AM CDT Home Care Visit [address] [address] Gillian June, PT PT - REASSESSMENT 12/16/2024 Travel 12/15/2024 Home Care Visit [address] [address] Mendy Kenny RN TELEPHONE ENCOUNTER 12/12/2024 10:00 AM CDT Home Care Visit [address] [address] Mendy Kenny RN SN - PRIORITY VISIT 12/11/2024 2:30 PM CDT Home Care Visit [address] [address] Joann Hudson, CLIENT RESOLUTION SPECIALIST PT - HOME VISIT 12/11/2024 2:00 PM CDT Home Care Visit [address] [address] Adele Fang, ROSALIO OT - HOME VISIT 12/09/2024 2:30 PM CDT Home Care Visit [address] [address] Joann Hudson, CLIENT RESOLUTION SPECIALIST PT - HOME VISIT 12/07/2024 Home Care Visit [address] [address] Lindsay Boyd RN CARE CONFERENCE 12/02/2024 3:30 PM CDT Home Care Visit [address] [address] Mendy Kenny, ABENA SN - PRIORITY VISIT 11/29/2024 Home Care Visit [address] [address] Lindsay Boyd, RN TELEPHONE ENCOUNTER 11/28/2024 9:00 AM CDT Home Care Visit [address] [address] Gillian June, PT PT - INITIAL EVALUATION 11/28/2024 Travel 11/27/2024 5:00 PM CDT Home Care Visit [address] [address] lCaudia Aviles OT OT - INITIAL EVALUATION 11/27/2024 1:30 PM CDT Home Care Visit [address] [address] Lindsay Boyd RN SN - OASIS START OF CARE 11/27/2024 Plan of Care Documentation [address] [address] from Last 3 Months Social History Tobacco Use Types Packs/Day Years Used Date Smoking Tobacco: Never Smokeless Tobacco: Never Comments No Sex and Gender Information Value Date Recorded Sex Assigned at Not on file Legal Sex Female 3:43 PM 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 Advance Directives * Full Code (Latest Code Status on File) Date Activated Date Inactivated Comments 12/04/2024 3:52 PM Care Teams Servicing Manager Relationship Specialty Start Date End Date David Coppola MD [facility] [address] PCP - General Family Medicine 11/22/24
--- OUTSIDE RECORDS SUMMARY | 2025-02-11 16:57 | XMS_ITS | Encounter Summary ---
Author Organization [facility] Health Address [address] [place] [address] Care Team Providers Care Electronic Publisher Name Role Phone David Coppola MD Primary Care Provider + [phone] David Coppola MD Primary Care Provider + [phone] David Coppola MD Unavailable [phone] David Coppola MD Unavailable [phone] Virginie Corea RN Unavailable [phone] Encounter Details Date Type Department Care Team (Late Contact Info) Description 02/08/2015 [facility] Outpatient Visit EXTERNAL NON-[facility] DEPT David Buitrago MD [address] [place] [address] [address] [place] [phone] Social History Tobacco Use Types Packs/Day Years Used Date Smoking Tobacco: Never Alcohol Use Standard Drinks/Week Comments No 0 (1 standard drink = 0.6 oz pur e alcohol) Comments Unknown Sex and Gender Information Value Date Recorded Sex Assigned at Not on file 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 Gender Identity Not on file Sexual Orientation Not on file documented as of this encounter Plan of Treatment Upcoming Encounters Date Type Department Care Team (Late Contact Info) Description 03/10/2025 11:00 AM CDT Appointment [facility] Health Vascular Services [address] [place] [address], [address] [place] [address] [place] [address] [facility] [address] [place] [address] [place] [address] [facility] [address] [place] [address] Cristo Fontenot MD [address] [place] [address] 03/17/2025 1:00 PM CDT Procedure visit [facility] - GI [address] [place] [address], [place] [phone] 03/17/2025 1:30 PM CDT Office Visit [facility] - GI [address] [place] [phone] Avis Dumont, BREAK UP WORKER-FAMILY AND CONSUMER SCIENCES PROFESSOR [address] [place] [address] [place] [phone] documented as of this encounter Visit Diagnoses Not on filedocumented in this encounter Care Teams Electronic Publisher Relationship Specialty Start Date End Date David Coppola MD [address] [place] [phone] PCP - General Family Medicine 02/08/15 08/14/16 David Coppola MD [address] [place] [phone] PCP - General 08/15/16 David Coppola MD [address] [place] [phone] Family Medicine 02/08/15 David Coppola MD [address] [place] [phone] Family Medicine 08/15/16 Virginie Corea, ABENA Mica Plate Layer Hand 02/23/15 documented as of this encounter
--- OUTSIDE RECORDS SUMMARY | 2025-02-11 16:57 | XMS_ITS | Clinical Summary ---
Author Organization [facility] Address [address] [place] [address] Phone Care Team Providers Care Cardiac Rehabilitation Program Director Name Role Phone Unavailable Primary Care Provider Unavailabl e Medications imipramine (TOFRANIL) 25 MG tablet 0 03/04/2014 Active pioglitazone (ACTOS) 15 MG tablet 03/04/2014 Active amLODIPine (NORVASC) 5 MG tablet 03/04/2014 Active aspirin (ASPIR-LOW) 81 MG EC tablet 03/04/2014 Active lovastatin (MEVACOR) 20 MG tablet 03/04/2014 Active ergocalciferol (VITAMIN D-2) 43375 units capsule 1 weekly 03/04/2014 Active lisinopril (PRINIVIL,ZESTR IL) 20 MG tablet 1 daily 12 08/23/2017 Active diclofenac (VOLTAREN) 1 % topical gel 03/04/2014 Active omega-3 (FISH OIL) 1000 MG capsule 03/04/2014 Active clotrimazole (LOTRIMIN) 1 % cream 03/04/2014 Active ferrous sulfate 325 (65 Fe) MG tablet 03/04/2014 Active carvedilol (COREG) 3.125 MG tablet 1 ibid 12 07/17/2017 Active Methylcobalamin (A65-IARASG) 1 MG chewable tablet half tab daily [...] Comments Blood Pressure 119/62 09/11/2018 12:01 AM TEXTILE SCREEN PRINTER Pulse 72 02/01/2015 12:01 AM CDT Temperature 36.8 C (98.3 F) 02/01/2015 12:01 AM CDT Respiratory Rate - - Oxygen Saturation - - Inhaled Oxygen Concentration - - Weight 63.5 kg (140 lb) 09/11/2018 12:01 AM TEXTILE SCREEN PRINTER Height 149.9 cm (4' 11) 09/11/2018 12:01 AM TEXTILE SCREEN PRINTER Body Mass Index 28.28 09/11/2018 12:01 AM TEXTILE SCREEN PRINTER Plan of Treatment Health Maintenance Due Date Last Done Comments Pneumococcal PPSV23/PCV13 65 + Years / Low and Medium Risk (1 of 2 - PCV) 1996 Influenza Vaccine (#1) 2025
--- OUTSIDE RECORDS SUMMARY | 2025-02-11 16:57 | XMS_ITS | Encounter Summary ---
Author Organization [facility] Healthcare Address [address] [place] [address] Care Team Providers Care Hose Stripper Name Role Phone David Coppola MD Primary Care Provider [phone] Jacob Suarez MD Unavailable [phone] Ros Seay MD Unavailable [phone] Abdifatah Villa MD Unavailable Issa Clements MD Unavailable [phone] Encounter Details Date Type Department Care Team (Late st Contact Info) Description 11/19/[address] [facility] Radiology [address] [place] [address] Yaritza Golden RN Social History Tobacco Use [...] often do you attend chur ch or yazidi services? 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 Gender Identity Not on file Sexual Orientation Not on file documented as of this encounter Plan of Treatment Scheduled Procedures Name Priority Associated Diagnoses Date/Ti me TRANSPLANT KIDNEY ESRD (end stage renal disease) (HCC) documented as of this encounter Visit Diagnoses Not on filedocumented in this encounter Care Teams Hose Stripper Relationship Specialty Start Date End Date David Coppola MD PCP - General Family Medicine 10/29/17 Jacob Suarez MD Referring Physician Nephrology 12/20/18 Ros Seay MD Inside Sales Director Cardiology 03/05/19 Abdifatah Villa MD [address] [facility] [address] [place] [address] Consulting Physician Cardiology 09/01/20 Issa Clements MD [address] [facility] [address] [place] [address] Referring Physician General Surgery 09/01/20 documented as of this encounter
--- OUTSIDE RECORDS SUMMARY | 2025-02-11 16:57 | XMS_ITS | Clinical Summary ---
Author Organization [facility] Address [address] [place] [address] Care Team Providers Care Cattle Alley Worker Name Role Phone David Coppola MD Primary Care Provider +- [phone] David Coppola MD Unavailable [phone] David Coppola MD Unavailable [phone] Virginie Corea RN Unavailable [phone] Source Comments [facility],non-owned Affiliates and Associated Physician Practices is amultiple site organization consisting of ambulatory clinics and hospital sitesin [place], [place], [place] and [place]. This disclosure is being madepursuant to the Care Everywhere program and may not contain all information available regarding this patient. Last updated 18.[facility] Allergies Active Allergy Reactions Criticality [...] vitamin D, ergocalciferol , (DRISDOL) 1.25 MG (24188 UT) capsule Take 1 (one) capsule by [...] included. Listing date: Not yet listed Referring Care Trainer: Dr. Suarez Dialysis Type and Start Date: [...] lives with her Estela. She speaks fluent Pashto. She has 3 children who live in [place] and [facility]. Her support system is her and [...] (Bezet) ms 462 ms Final Calculated R [place] degrees 82 degrees Final Calculated T axis degrees 53 degrees Final EKG Interp Final ATRIAL FIBRILLATION NONSPECIFIC ST ABNORMALITY , PROBABLY DIGITALIS EFFECT ABNORMAL ECG NO PREVIOUS ECGS AVAILABLE Confirmed by Fritz GANT, MIKE ([id number]), editor continuity and script Joseph Ingram ([id number]) on 04/04/2018 1:32:49 PM Echo: 03/28/18 CONCLUSION: There is moderate concentric left ventricular hypertrophy. The left ventricular ejection fraction is estimated at 65 %. There are no regional wall motion abnormalities present. Estimated right ventricular systolic pressure is 39 mmHg. Severe biatrial enlargement Mild dilated proximal ascending aorta. DSE: n/a will need [facility] Cardiac Cath: Will need d/t length [...] Completed at [facility]SH on 03/20/18 Cardiac Catheterization03/20/2018 [facility] Result Narrative PERIPHERAL ANGIOGRAM AND INTERVENTION REPORT [...] artery access site 8. Moderate Sedation (CPT 14641) MODERATE SEDATION: Midazolam 2 mg , Fentanyl 50 mcg, start time 1157 stop time 1318, total direct [id number] monitoring of conscious sedation 81 minutes (CPT 98824) TRAINED OBSERVER: Mena Scruggs RN was trained office over for moderate sedation. ACCESS SITE: Right common femoral artery PROCEDURE: After obtaining informed consent, patient was brought to the boat laborer and prepped and draped in the usual sterile manner. After local anesthesia with lidocaine, right common femoral artery access was taken with micropuncture needle followed by insertion of a 5 [place]orese sheath over a 0.035 inch wire. Selective right common femoral angiogram with distal runoff was performed through the 5 [place]orese sheath. After this, a 5 [place]orese IM catheter was advanced in the distal abdominal aorta, distal abdominal aortogram with bilateral iliac runoff was performed. The same catheter was pointed towards the left common iliac artery, selective left common iliac angiogram with distal runoff was performed. During intervention, selective left common femoral angiogram and superficial femoral angiogram was performed using the long 6 [place] sheath. The angiographic findings and details of [...] intervention on the same vessel. The 5 [place]se sheath was exchanged with a long 90 cm sheath over 035 glide wire. The tip of the long sheath was position in the proximal popliteal artery. Patient received heparin for procedural anticoagulation, ACT was monitored throughout the procedure. Patient also received aspirin loading dose of clopidogrel 600 mg in the boat laborer. The totally occluded, calcified left anterior tibial [...] received dental clearance PPD: Colonoscopy: Completed at [facility] 12/02/2015 Mammo: Pap: Dental: SW: 03/28/18 Clinical Social Work Impression: It is the impression of this social work instructor that Shasta Obando has several positive factors for Kidney transplant candidacy from a psychosocial perspective. Pt has a good understanding of her disease and motivation for kidney transplant. Pt appears to have adequate insurance and financial situation (children provide assistance as needed) for post transplant needs. Pt has identified adequate support system and appropriate discharge plan. No concerns regarding substance abuse identified. Plan: hop worker to provide supportive services as needed. No f/u indicated at this time.Patient appears to be a reasonable candidate for transplant from a psychosocial perspective. Post transplant arrangement forms are needed prior to being listed. Psychiatric Consult Recommended: No Transplant Office Machine Embossograph Operator: Nicole Tomas LMSW RD: 03/28/18 BMI= 28.51, overweight - Pt is considered to be a good candidate for a Kidney Transplant from a Nutrition standpoint. Recommendations/Interventions: Pt instructed to continue to work with Renal RD at HD on diet and to be compliant. Lindsay Gardner Encounter for other preprocedural examination Overview (10/08/2017): Listing date: Not yet listed Referring Care Trainer: Dr. Suarez Dialysis Type and Start Date: [...] lives with her Estela. She speaks fluent Pashto. She has 3 chilren who live in [place] and [facility]. Her support system is her and [...] Transplant surgery appt: Consults: cardiology consult with [facility] Notes: Not yet presented Evaluation Testing Date and Results: Labs: PTH: A1c: Glucose: PSA: GFR: Serologies: CMV Igg: EBV Igg: Albumin: Tox Screen: PRA: Echo: DSE: Cardiac Cath: CXR: Pano: US: PPD: Negative at on 05/08/2016 Colonoscopy: Completed at [facility] 12/02/2015 Mammo: Pap: Dental: SW: RD: Abnormal finding on imaging 06/15/2015 Overview (06/15/2015): Filling defect on venography of central veins. Need to rule out aortic arch aneurysm. Complication of arteriovenous dialysis fistula PVD (peripheral vascular disease) Encounters Date Type Department Care Team Description 02/03/2025 Orders Only [facility] - GI [address] [facility], [place] [address] Avis Dumont, CHIEF SALES OFFICER-CILNICAL SCIENTIST Hepatitis B core antibody positive 11/26/2024 Travel 11/11/2024 10:04 AM CDT - 11/11/2024 11:59 PM CDT Hospital Encounter [facility] Health Vascular Services [address] [place] [address], [address] [place] [address] David Buitrago MD Oak, MD Corie Denton [...] on file 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 [address] [place] [address] [place] [address] [facility] [address] [place] [address] Cristo Fontenot MD [address] [place] [address] 03/17/2025 1:00 PM CDT [facility] [address] [place] [phone] 03/17/2025 1:30 PM CDT Office Visit [facility] - GI [address] [place] [phone] Avis Dumont, CHIEF SALES OFFICER-CILNICAL SCIENTIST [address] [place] [address] Health Maintenance Due Date Last Done Comments [...] this topic Medical Devices Implanted Type Area Distribution Spec Device Identifier Shelf Expiration Date Model / Serial / Lot Duraflow 2 Hemodialysis Catheter Implanted:Qty: 1 on 02/22/2015 by David Buitrago MD at [facility] Right: Chest 06/07/2017 [id number] / / [id number] [place] Acuseal Vascular Graft Implanted:Qty: 1 on 04/02/2018 by David Buitrago MD at [facility] Left: Arm 10/29/2020 [id number] / / [id number] Procedures Procedure Name Priority Date/Time Associated Diagnosis [...] Notes Date: 11/11/2024 Surgeon: Cristo Fontenot MD Glue Jointer Feeder: none Pre-Procedure diagnosis: Prolonged bleeding after access [...] over the wire for a short 6 [place]orese sheath. Over the wire, peripheral venoplasty was [...] glen Non-reac tive 03/28/2018 2:50 PM CDT [facility] Comment: Hepatitis C Antibody screen indicates [...] LAB - CHEMISTRY ORDERABLES Fi nal Result [address] [phone] from Last 3 Months or Most Recently Relevant to Health Maintenance Insurance MEDICAID - [place] UHC MANAGED MEDICARE ADV MEDICAID - OUT OF STATE Advance Directives Documents on File Type Date Recorded Patient Plastering Supervisor Expl anation Adv Directive/Living Will/POA 09/18/2017 * Full Code (Latest Code Status on File) Date Activated Date Inactivated Comments 02/22/2015 4:27 PM 02/23/2015 5:53 PM Care Teams Cattle Alley Worker Relationship Specialty Start Date End Date David Coppola MD [address] [place] [phone] PCP - General 08/15/16 David Coppola MD [address] [place] [phone] Family Medicine 02/08/15 David Coppola MD [address] [place] [phone] Family Medicine 08/15/16 Virginie Corea, ABENA City Surveyor 02/23/15
--- OUTSIDE RECORDS SUMMARY | 2025-02-11 16:57 | XMS_ITS | Encounter Summary ---
Author Organization [facility] Healthcare Address [address] [place] [address] Care Team Providers Care Wood Shop Teacher Name Role Phone David Coppola MD Primary Care Provider [phone] Jacob Suarez MD Unavailable [phone] Marnie Lara RN Unavailable [phone] Ros Seay MD Unavailable [phone] Johana Edmond RN Unavailable Abdifatah Villa MD Unavailable Issa Clements MD Unavailable [phone] Encounter Details Date Type Department Care Team (Late st Contact Info) Description 12/11/2018 Orders Only [facility] Health Information Management [address] [place] [address] Scanning, Provider Social History Tobacco Use Types Packs/Day Years Used Date Smoking Tobacco: Never Smokeless Tobacco: Never Alcohol Use Standard Drinks/Week Comments No 0 (1 standard drink = 0.6 oz pur e alcohol) Comments No Sex and Gender Information Value Date Recorded Sex Assigned at Not on file 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 Sex Female 12:39 PM 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 Gender Identity Not on file Sexual [...] Influenza, adult 09/04/2019 09/04/2019 09/11/2019 3:05 AM 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 SPECIALIST Abscess/Wound/Cellulitis 10/16/2019 10/16/2019 3:05 AM CDT documented as of this encounter Care Teams Wood Shop Teacher Relationship Specialty Start Date End Date David Coppola MD PCP - General Family Medicine 10/29/17 Jacob Suarez MD Referring Physician Nephrology 12/20/18 Marnie Lara RN Registered Nurse Information Services Assistant 12/20/1809/03 Ros Seay MD Military Technology Manager Cardiology 03/05/19 Johana Edmond, RN [address] [facility] [address] [place] [address] Information Services Assistant 08/21/19 Abdifatah Villa MD [address] [facility] [address] [place] [address] Consulting Physician Cardiology 09/01/20 Issa Clements MD [address] [facility] [address] [place] [address] Referring Physician General Surgery 09/01/20 documented as of this encounter
--- OUTSIDE RECORDS SUMMARY | 2025-02-11 16:57 | XMS_ITS | Clinical Summary ---
Author Organization [facility] Address [facility] [place] [address] Care Team Providers Care Senior Applications Developer Name Role Phone David Coppola MD Primary Care Provider [phone] Social History Tobacco Use Types Packs/Day Years [...] patient's age to complete this topic Insurance [facility] [place] [address] [place] [address] Care Teams Senior Applications Developer Relationship Specialty Start Date End Date David Coppola MD [facility] [address] [address] PCP - General FAMILY PRACTICE 06/13/22
== END 2025-02-11 16:14 | disposition left against medical advice (07) ==
LOC: ANHED 16:54
PROVIDERS: Emergency Provider Emergency Medicine; PCP Family Medicine
DX: E83.52 Hypercalcemia (principal); R29.6 Repeated falls; K21.9 Gastro-esophageal reflux disease without esophagitis; K58.9 Irritable bowel syndrome, unspecified; I73.9 Peripheral vascular disease, unspecified; Z86.19 Personal history of other infectious and parasitic diseases; I48.0 Paroxysmal atrial fibrillation; E11.22 Type 2 diabetes mellitus with diabetic chronic kidney disease; I12.0 Hypertensive chronic kidney disease with stage 5 chronic kidney disease or end stage renal disease; N18.6 End stage renal disease; Z99.2 Dependence on renal dialysis; M81.0 Age-related osteoporosis without current pathological fracture; E78.5 Hyperlipidemia, unspecified
CPT/HCPCS: 36415; 70450; 71045; 80053; 85025; 93005; 99284

== ENCOUNTER 2025-02-12 07:51 | Inpatient (IN) | payer MEDICARE, MEDICAID, SELFPAY ==
[2025-02-12] VITALS (33 sets, daily range): BP systolic 90–171; BP diastolic 31–93; PULSE 45–89; RESP 16–20; TEMP 36–37; O2SAT 94–100; BMI 22.2
--- NOTE | ~2025-02-12 | XR_ITS ---
XR chest 2V 02/12/2025 08:44 Indication: Shortness of breath Procedure: AP and lateral views of the chest Comparison: Comparison to multiple prior studies sequentially, with oldest reviewed study dated 08/04. Findings: Cardiomegaly with mild interstitial edema. No significant effusion or pneumothorax. There i s atherosclerosis. Impression: 1: Cardiomegaly with persistent mild interstitial edema. Reviewed, dictated and finalized at location A. Impression: 1: Cardiomegaly with persistent mild interstitial edema.
--- NOTE | ~2025-02-12 | XR_ITS ---
XR bone survey comp/metastic 02/12/2025 18:46 Indication: Hypercalcemia Procedure: Complete bone survey with 32 images Comparison: No prior studies for comparison. Findings: There is multilevel cervical, thoracic and lumbar spondylosis with grade 1 spondylolisthesi s at L4-5. There are vascular stents in the right subclavian region and bilaterally in the upper arms /axillary regions. The lungs are hyperinflated which is consistent with, but not diagnostic of chroni c obstructive pulmonary disease. Cardiomegaly. Atherosclerosis. There are extensive splenic arterial calcifications. Diffuse atherosclerosis. There are healed left inferior pubic ramus and acetabular fr actures. There is a right total knee arthroplasty. There are changes of right bilateral malleolar rep air intraoperatively. No suspicious lytic or blastic lesions are seen to suggest metastatic disease o r myeloma. Impression: 1: No suspicious lytic or blastic lesions are identified to suggest metastatic disease or myeloma. Reviewed, dictated and finalized at location A. Impression: 1: No suspicious lytic or blastic lesions are identified to suggest metastatic disease or myeloma.
--- NOTE | ~2025-02-12 | CT_ITS ---
History: Increased confusion PROCEDURE: CT head without contrast. COMPARISON: 02/11/2025 TECHNIQUE: Axial imaging of the head performed from the skull base to the vertex without IV contrast. Sagittal a nd coronal reformations obtained. DLP: 681 mGy-cm FINDINGS: The ventricles are enlarged. The dilatation of the ventricles is proportional to the degree of sulcal prominence, not uncommon in the senescent brain. Decreased attenuation is identified within the periventricular white matter, likely secondary to micr ovascular ischemic disease, in a patient of this age. There is no mass, mass effect or midline shift. There is no abnormal extra-axial fluid collection or intracranial hemorrhage. Visualized paranasal sinuses are clear. The mastoid air cells are well aerated. No acute displaced fractures within the overlying cranium. Densely calcified atherosclerotic disease detected. Impression: No acute intracranial hemorrhage or suspicious mass effect. Reviewed, dictated and finalized at location A. Impression: No acute intracranial hemorrhage or suspicious mass effect.
--- NOTE | ~2025-02-12 | CT_ITS ---
Clinical Indication: Hypercalcemia CT Scan of the Chest, Abdomen, and Pelvis without Contrast: Technique: Contiguous sections were acquired throughout the chest, abdomen, and pelvis without IV con trast administration. Dose reduction technique was used on this scan by utilizing automated exposure control and iterative reconstruction technique. The dose-length product (DLP) was 274.23 mGy-cm. Comparison: 11/05/2024 Findings: There is no evidence of any significant mediastinal, hilar or axillary lymphadenopathy. There are ath erosclerotic calcifications of the aorta and coronary arteries. Probable left atrial appendage occlus ion device present. No pericardial effusion. Small bilateral pleural effusions are present. There is associated mild bibasilar atelectatic change. The lungs are clear. No pulmonary nodules or infiltrates are noted. The liver, spleen, pancreas, and adrenal glands are within normal limits. Tiny gallstone. Kidneys are relatively atrophic with probable renal cysts present. There are extensive atherosclerotic calcifica tions of the aorta and iliac vessels. No lymphadenopathy. Probable fecal impaction/constipation with stercoral proctitis. Urinary bladder is unremarkable. No pelvic mass evident. No ascites. Diffuse rugger-jersey appearance of the spine is compatible with renal osteodystrophy. Impression: Small pleural effusions with mild bibasilar atelectatic change. Tiny gallstone. Renal osteodystrophy with atrophic kidneys and multiple renal cysts. Fecal impaction and stercoral proctitis. Reviewed, dictated and finalized at [facility]. Impression: Small pleural effusions with mild bibasilar atelectatic change. Tiny gallstone. Renal osteodystrophy with atrophic kidneys and multiple renal cysts. Fecal impaction and stercoral proctitis.
--- NOTE | ~2025-02-12 | XR_ITS ---
CHEST RADIOGRAPH CLINICAL HISTORY: increased confusion, anxiety . COMPARISON: 02/12/2025 TECHNIQUE: Single portable view of the chest. FINDINGS The cardiomediastinal silhouette is enlarged. Multiple venous stents are identified within the right hemithorax in the right upper extremity, uncha nged from prior. Increased left-sided pleural effusion when compared with previous study. Skinfold projecting over the lateral left chest, for which repeat frontal view was performed demonstr ating resolution. Bibasilar atelectasis, surrounding patient's known hiatal hernia. IMPRESSION: Increased left-sided pleural effusion without additional abnormality within the bilateral lung salazar . Reviewed, dictated and finalized at location A. IMPRESSION: Increased left-sided pleural effusion without additional abnormality within the bilateral lung salazar.
--- NOTE | 2025-02-12 08:06 | ECG_ITS ---
Test Date: 2025-02-12 08:11:42 Measurements Intervals [place] Rate: 72 P: 0 ND: 0 QRS: 116 QRSD: 96 T: 29 QT: 385 QTc: 422 Interpretive Statements ATRIAL FIBRILLATION RIGHT AXIS DEVIATION INCOMPLETE RIGHT BUNDLE BRANCH BLOCK NONSPECIFIC T-WAVE ABNORMALITY- ANT/INF LEADS BASELINE ARTIFACT- I, II, III, AVR, AVL, AVF ABNORMAL ECG Compared to ECG 02/11/2025 14:15:12 NO SIGNIFICANT CHANGE Electronically Signed On 02-12-2025 08:50:22 CDT by Danny Soliz D.O.
--- OUTSIDE RECORDS SUMMARY | 2025-02-12 08:27 | XMS_ITS | Clinical Summary ---
Author Organization [facility] [place] [address] Address [address] [place] [address] Care Team Providers Care Potato Bucker Name Role Phone David Coppola MD Primary Care Provider [phone] Jacob Suarez MD Unavailable [phone] Ros Seay MD Unavailable [phone] Abdifatah Villa MD Unavailable Issa Clements MD Unavailable [phone] Allergies Active Allergy Reactions Criticality Noted [...] GIB. Patients daughter reports recent admission to [facility] due to concern for GIB. Patient followed up with her outpatient GI. Planning for EGD at the end of November - continue PPI. Assessment & Plan (11/21/2024 3:03 PM CDT): History of peptic ulcer with GIB. Patients daughter reports recent admission to [facility] due to concern for GIB. Patient followed up with her outpatient GI. Planning for EGD at the end of November - closely monitor for bleeding due to starting asa and Plavix as above - continue PPI Assessment & Plan (08/28/2024 1:08 PM REGISTERED DIETICIAN): History of peptic ulcer with GIB Denies sx continue PPI Heart valve disease 04/06/2023 History of GI bleed 02/04/2023 Bradycardia 09/29/2022 Bleeding 09/29/2022 Idiopathic hypotension 09/13/2021 Complication of arteriovenous dialysis fistula 0 09/07/2020 Type 2 diabetes mellitus wit h diabetic peripheral angiopathy and gangrene, without long-term current use of insulin 08/21/2020 Assessment & Plan (08/28/2024 1:05 PM REGISTERED DIETICIAN): Home regimen Januvia, tresiba 10 and Victoza. Reviewed PCP records noted hypoglycemia last hospital admit with basal insulins continued Will continue januvia and hold tresiba and victoza SSI Family history of ischemic h eart disease and other diseases of the circulatory system 11/27/2019 Critical limb ischemia of right lower extremity 10/14/2019 Overview (10/14/2019): Added automatically from request for surgery [id number] Assessment & Plan (08/28/2024 12:59 PM REGISTERED DIETICIAN): S/p uncomplicated balloon angioplasty of the AT, [...] (10/14/2019): Added automatically from request for surgery [id number] Presence of Watchman left atrial appendage closu re device 08/29/2018 Atrial fibrillation, permanent 06/13/2018 Overview (06/13/2018): Added automatically from request for surgery [id number] Assessment & Plan (11/22/2024 1:43 PM CDT): Rate controlled and s/p Watchman due to prior GIB. - continue home coreg as below. Assessment & Plan (11/21/2024 3:39 PM CDT): Rate controlled and s/p Watchman due to prior GIB. - continue home coreg as below Assessment & Plan (08/28/2024 1:03 PM REGISTERED DIETICIAN): [place] [facility] [place]. Rate controlled and s/p Watchman due to prior severe GIB Recently stopped coreg due to bradycardia ASA and plavix to start per IR recs post revascularization Assessment & Plan (07/24/2018 9:29 AM REGISTERED DIETICIAN): Continue coreg. S/p Watchmann DAVIDA occluder implant for future deescalate anticoagulation. Continue apixiban for now as per EP. Post procedure CXR. 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 PAD (peripheral artery disease) 03/15/2018 Overview (03/15/2018): Added automatically from request for surgery [id number] Assessment & Plan (11/22/2024 1:43 PM CDT): [...] (03/15/2018): Added automatically from request for surgery [id number] Ischemia of foot 03/15/2018 Overview (03/15/2018): Added automatically from request for surgery [id number] Noncompliance 02/24/2018 Essential hypertension 11/10/2017 Assessment & Plan (11/22/2024 1:43 PM CDT): On lisinopril and coreg at home, holding today for lower BP. Resume as able. Assessment & Plan (11/21/2024 3:03 PM CDT): Continue home lisinopril and coreg Assessment & Plan (07/24/2018 9:27 AM REGISTERED DIETICIAN): Continue home meds and dialysis. Hyperlipidemia associated [...] today Assessment & Plan (08/29/2024 4:04 PM REGISTERED DIETICIAN): Routine M/W/F r brachial fistula (has required multiple dilations last at [facility] 07/2024 Feeling well post procedure denies dyspnea. Renal consulted for HD prior to discharge Assessment & Plan (07/24/2018 9:26 AM REGISTERED DIETICIAN): HD as per renal consult. Resume outpt [...] Resolved Date Coronary artery disease invo lving conf[place] coronary artery of [place] heart without angina pectoris 03/07/2021 03/07/2021 Preoperative cardiovascular examination 03/07/2021 09/29/2022 Hypoxia 11/27/2019 04/03/2023 Toe ulcer, left, with unspecified severity 09/16/2018 03/07/2021 Overview (09/16/2018): Added automatically from request for surgery [id number] Cough 11/10/2017 03/07/2021 Lumbago 06/04/2017 03/07/2021 Pain [...] Description 01/13/2025 1:30 PM CDT Office Visit [facility] Cardiology at [address] [place] [address] David Rodriguez MD Atrial fibrillation, permanent (HCC) (Primary Dx) 01/06/2025 Orders Only [facility] Radiology [address] [place] [address] Alena Fontenot RN PAD (peripheral artery disease) (Primary Dx) 01/05/2025 Telephone [facility] Radiology [address] [place] [address] Alena Fontenot RN 12/23/2024 9:02 AM CDT - 12/23/2024 11:59 PM CDT Hospital Encounter [facility] Vascular Lab [id number] [place] [address] Atherosclerosis of conf[place] arteries of extremities with intermittent claudication, right leg; Atherosclerosis of conf[place] arteries of extremities with rest pain, bilateral legs (HCC) Discharge Disposition: Discharge to home or self care 12/23/2024 9:02 AM CDT - 12/23/2024 11:59 PM CDT Hospital Encounter [facility] Vascular Lab [id number] [place] [address] Atherosclerosis of [place] arteries of extremities with rest pain, bilateral legs (HCC); Atherosclerosis of [place] arteries of extremities with rest pain, left leg (HCC) Discharge Disposition: Discharge to home or self care 11/28/2024 Telephone [facility] Radiology [address] [place] [address] Alena Fontenot, RN 11/27/2024 Orders Only [facility] Radiology [address] [place] [address] Alena Fontenot, RN Atherosclerosis of conf[place] arteries of extremities with intermittent claudication, right leg (Primary Dx); Atherosclerosis of conf[place] arteries of extremities with rest pain, bilateral legs (HCC); Atherosclerosis of conf[place] arteries of extremities with rest pain, left leg (HCC) 11/27/2024 Telephone [facility] Radiology [address] [place] [address] Alena Fontenot RN 11/21/2024 12:00 PM CDT - 11/22/2024 4:55 PM CDT Hospital [address] [address] Shahnaz Heredia MD Guevara, Carlos Javier, MD Pain and swelling of right lower extremity (Primary Dx); Non-healing wound of right lower extremity; Pain and swelling of lower extremity, right; PAD (peripheral artery disease) Discharge Disposition: Discharge to home or self care 11/21/2024 6:00 AM CDT Office Visit [address] 1st [place] [address] PAD (peripheral artery disease) 11/21/2024 Telephone Radiology 1 [place] [address] Hollie Martinez PA 11/19/2024 Telephone [facility] Scheduling [address] [place] [address] Cynthia Blankenship MD Scheduling Appointments 11/19/2024 Telephone [facility] Radiology [address] [place] [address] Yaritza Golden RN 11/18/2024 Telephone [facility] Radiology [address] [place] [address] Tomy Reynolds RN 11/17/2024 Orders Only [facility] Radiology [address] [place] [address] Alena Fontenot, ABENA PAD (peripheral artery disease) (Primary Dx) 11/17/2024 Telephone [facility] Radiology [address] [place] [address] Alena Fontenot, ABENA from Last 3 Months [...] Hx Relation Name Status Comments Brother of MS age 48 Father of MS age 47 Mother Social History Tobacco Use [...] often do you attend chur ch or latter day services? 1 to 4 times per year 09/04/2019 Do you belong to any clubs o r organizations such as quaker groups, unions, fraternal or athletic groups, or [...] on file Legal Sex Female 12:39 PM REGISTERED DIETICIAN Gender Identity Not on file Sexual Orientation [...] Additional history exists Influenza Vaccine (#1) 2025 , 03/22/2018, 04/08/2017, Additional history exists Lipid Panel 11/21/2025 11/21/2024, 08/10, 09/26/2022, Additional history exists Fall Risk Assessment 11/22/2025 11/22/2024, 09/17/19 19 eGFR 11/22/2025 11/22/2024, 11/06, 11/21/2024, Additional history exists Hepatitis B Screening Completed 04/26/2018 Pneumococcal vaccine 65+ Completed 05/08/2019, 08/2013 Hepatitis C Screening Completed 08/19/2020 , 09/04/2019, 05/08/2019 Medical Devices Implanted Type Area Fabric Worker Supervisor Device Identifier Shelf Expiration Date Model / Serial / Lot Device Clsr 27mm Davida Watchman - [id number] - [id number] Implanted:Qty : 1 on 07/23/2018 by Mike Mccloud MD PhD at [facility] Other - see comments Left: Heart [place] [employer]anna 12/13/2020 27MM-DAVIDA CLOSURE DEVICE / [id number] / [id number] Description:Left atrial appe ndage closure device Watchman Daig Bre[employer] [id number] Angio-Seal Vip Bondek-Plus 6fr .035in 70cm Hemostatic Latex Free - [id number] Implanted:Qty : 1 on 03/20/2018 [facility] 12/06/2018 [id number] / / [id number] Device Davida Watchman Procedure - [id number] Implanted:Qty : 1 on 07/23/2018 by Mike Mccloud MD PhD at [facility] [employer] Breanna WMPERPROCDEVICE 1 - 3 PC / / Description:1 Device Daig [employer] [id number] Angio-Seal Vip Bondek-Plus 6fr .035in 70cm Hemostatic Latex Free - [id number] Implanted:Qty : 1 on 09/26/2018 by Abdifatah Villa MD at [facility] [employer] 06/07/2019 [id number] / / [id number] Daig Breanna [id number] Device Closure Angio-Seal Vip Bondek-Plus Polyglyd L70 Cm Od6 Fr Odsec.035 In Vascular - [id number] Implanted:Qty : 1 on 10/16/2019 by Abdifatah Villa MD at [facility] [employer] [id number] / / [employer] Device 6fr Closure Celt Acd Vascular Sterile Latex Free Disposable [facility] - [id number] Implanted:Qty : 1 on 08/28/2024 at [facility] [employer] 01/01/2027 [facility] [id number] [employer] Bre[place] Angio-Seal Vip 6fr Closere Device [id number] - [id number] Implanted:Qty : 1 on 11/21/2024 at [facility] [employer] 03/26/2025 [id number] / / [id number] Procedures Procedure Name Priority Date/Time Associated Diagnosis Comments VL US ARTERIAL DUPLEX LOWER EXTREMITY BILATERAL Schedule Routine, Read Routine (OP Routine) 12/23/2024 11:51 AM CDT Atherosclerosis of [place] arteries of extremities with rest pain, bilateral legs (HCC) Atherosclerosis of [place] arteries of extremities with rest pain, left leg (HCC) US ARTERIAL DOPPLER LOWER EXTREMITY BILATERAL Schedule Routine, Read Routine (OP Routine) 12/23/2024 11:17 AM CDT Atherosclerosis of [place] arteries of extremities with intermittent claudication, right leg Atherosclerosis of [place] arteries of extremities with rest pain, bilateral [...] HEPATITIS C ANTIBODY Routine 08/19/2020 12:07 PM REGISTERED DIETICIAN ESRD (end stage renal disease) (HCC) HEMOGLOBIN A1C Routine 09/04/2019 12:14 AM REGISTERED DIETICIAN from Last 3 Months or Most Recently [...] DATE: 12/23/2024 10:00 AM HISTORY: Atherosclerosis of Ruby Arteries of Extremities with Rest Pain, Bilateral [...] DATE: 12/23/2024 10:00 AM HISTORY: Atherosclerosis of Ruby Arteries of Extremities with Rest Pain, Bilateral [...] DATE: 12/23/2024 10:00 AM HISTORY: Atherosclerosis of Ruby Arteries of Extremities with Rest Pain, Bilateral [...] DATE: 12/23/2024 10:00 AM HISTORY: Atherosclerosis of Ruby Arteries of Extremities with Rest Pain, Bilateral [...] ICE Final Result Performing Organization Address City/[facility]/ZIP Co de Phone Number [facility] [place] [address] * (ABNORMAL) POCT glucose (11/22/2024 8:28 AM CDT) [facility] Glucose, POC 230(H) 70 - 199 mg/dL Blood 11/22/2024 8:28 AM CDT 11/22/2024 8:28 AM CDT Result [facility] Shahnaz Heredia MD LAB POCT ORDERABLES - DEV ICE Final Result Performing Organization Address City/[facility] Co de Phone Number [facility] [place] [address] * (ABNORMAL) eGFR (11/22/2024 7:56 AM CDT) [facility] eGFR 7(L) >=60 mL/min/1. 73 m2 Comment: [...] [facility] [place] [address] * Hepatitis B Surface Antigen Blood (11/22/2024 7:56 AM CDT) Pathologist [facility] HepBsAg Nonreactive Nonreactive Blood 11/22/2024 7:56 AM CDT 11/22/2024 8:36 AM CDT Nina Hopson MD LAB MICROB IOLOGY - GENERAL ORDERABLES Edited Result - Final Performing Organization Address City/[facility]/ZIP Co de Phone Number [facility] [place] [address] * (ABNORMAL) CBC without differential (11/22/2024 7:56 AM CDT) Pathologist [facility] WBC 7.32 3.80 - 9.90 K/cumm Hgb 8.6(L) 11.9 - 15.5 g/dL [facility] Hct 28.8(L) 35.6 - 45.5 % [facility] Plt 111(L) 150 - 400 K/cumm [facility] MPV 12.6(H) 9.1 - 12.3 fL [facility] RBC 2.91(L) 3.90 - 5.20 M/cumm [facility] MCV 99.0(H) 81.3 - 96.4 fL [facility] MCH 29.6 27.1 - 33.3 pg [facility] MCHC 29.9(L) 32.3 - 35.7 g/dL [facility] RDW CV 17.2(H) 11.1 - 14.9 % [facility] RDW SD 60.7(H) 35.7 - 48.1 fL [facility] NRBC abs 0.00 0.00 - 0.01 K/cumm [facility] Blood 11/22/2024 7:56 AM CDT 11/22/2024 8:37 AM CDT us Tomy GUADARRAMA LAB BLOOD ORDERABLES Final R esult [facility] One [facility] [place] [address] * (ABNORMAL) Basic metabolic panel (11/22/2024 7:56 AM CDT) Sodium 131(L) 135 - 145 mmol/L Potassium, pl 5.5(H) 3.3 - 4.9 mmol/L [facility] Chloride 92(L) 97 - 110 mmol/L [facility] CO2 29 22 - 32 mmol/L [facility] Anion gap 10 2 - 15 mmol/L [facility] BUN 58(H) 6 - 25 mg/dL [facility] Creatinine 6.13(H) 0.60 - 1.10 mg/dL [facility] Glucose 257(H) 70 - 199 mg/dL [facility] Comment: Interpretive Data Fasting [...] 2022. Calcium 8.8 8.5 - 10.3 mg/dL [facility] Blood 11/22/2024 7:56 AM CDT 11/22/2024 8:37 AM CDT us Tomy Delgado PA LAB BLOOD ORDERABLES Final R esult Performing Organization Address City/[facility]/ZIP Co de Phone Number [facility] [place] [address] * (ABNORMAL) eGFR (11/21/2024 10:36 PM CDT) [...] PM CDT 11/21/2024 10:49 PM CDT us Christian Fermin GARMENT FORM ASSEMBLER LAB BLOOD ORDERABLES Final Result Performing Organization Address City/[facility]/ZIP Co de Phone Number [facility] [place] [address] * (ABNORMAL) CBC without differential (11/21/2024 10:36 PM CDT) WBC 8.51 3.80 - 9.90 K/cumm Hgb 8.9(L) 11.9 - 15.5 g/dL [facility] Hct 29.8(L) 35.6 - 45.5 % [facility] Plt 112(L) 150 - 400 K/cumm [facility] MPV 12.7(H) 9.1 - 12.3 fL [facility] RBC 3.01(L) 3.90 - 5.20 M/cumm [facility] MCV 99.0(H) 81.3 - 96.4 fL [facility] MCH 29.6 27.1 - 33.3 pg [facility] MCHC 29.9(L) 32.3 - 35.7 g/dL [facility] RDW CV 17.2(H) 11.1 - 14.9 % [facility] RDW SD 60.3(H) 35.7 - 48.1 fL [facility] NRBC abs 0.02(H) 0.00 - 0.01 K/cumm [facility] Blood 11/21/2024 10:3 6 PM CDT 11/21/2024 10:49 PM CDT us Christina Fermin NP LAB BLOOD ORDERABLES Final Result [facility] [place] [address] * (ABNORMAL) Phosphorus (11/21/2024 10:36 PM CDT) [facility] Phosphorus, pl 6.5(H) 2.3 - 4.5 mg/dL Blood 11/21/2024 10:3 6 PM CDT 11/21/2024 10:49 PM CDT us Robles Alicea MD LAB BLOOD ORDERABLES Gertrude l Result [facility] [place] [address] * (ABNORMAL) Basic metabolic panel (11/21/2024 10:36 PM CDT) Sodium 135 135 - 145 mmol/L Potassium, pl 5.5(H) 3.3 - 4.9 mmol/L [facility] Chloride 93(L) 97 - 110 mmol/L [facility] CO2 29 22 - 32 mmol/L [facility] Anion gap 13 2 - 15 mmol/L [facility] BUN 57(H) 6 - 25 mg/dL [facility] Creatinine 5.81(H) 0.60 - 1.10 mg/dL [facility] Glucose 257(H) 70 - 199 mg/dL [facility] Comment: Interpretive Data Fasting [...] 2022. Calcium 9.6 8.5 - 10.3 mg/dL [facility] Blood 11/21/2024 10:3 6 PM CDT 11/21/2024 10:49 PM CDT us Christina Fermin GARMENT FORM ASSEMBLER LAB BLOOD ORDERABLES Final Result [facility] One [facility] [place] [address] * POCT glucose (11/21/2024 8:23 PM CDT) Glucose, POC 119 70 - 199 mg/dL Blood 11/21/2024 8:23 PM CDT 11/21/2024 8:23 PM CDT us Shahnaz Heredia MD LAB POCT ORDERABLES - DEV ICE Final Result GUILLERMINA MCNALLY [facility] [place] [address] * POCT glucose (11/21/2024 5:24 PM CDT) Glucose, POC 188 70 - 199 mg/dL Blood 11/21/2024 5:24 PM CDT 11/21/2024 5:24 PM CDT Shahnaz Heredia MD LAB POCT ORDERABLES - DEV ICE Final Result Performing Organization Address [facility] Co de Phone Number GUILLERMINA [facility] [place] [address] * IR Angiogram Lower Extremity Right (11/21/2024 [...] was obtained. Prior to beginning the procedure, Kent Protocol was performed to confirm the patient's [...] was obtained. Prior to beginning the procedure, [place] Protocol was performed to confirm the patient's [...] by: Anthony Gorman M.D. Anthony Gorman MD IM IR PROCEDURES Final Result * (ABNORMAL) POCT Activated clotting time, low range (11/21/2024 10:36 AM CDT) ACT 318(H) 123 - 168 sec POC Performer [id number] [facility] POC Device Number [id number] [facility] Blood 11/21/2024 10:3 6 AM CDT 11/21/2024 10:36 AM CDT Shahnaz Heredia MD LAB POCT ORDERABLES - DEV ICE Final Result Performing Organization Address [facility] Co de Phone Number [facility] [place] [address] * (ABNORMAL) POCT Activated clotting time, low range (11/21/2024 9:54 AM CDT) ACT 331(H) 123 - 168 sec POC Performer [id number] [facility] POC Device Number [id number] [facility] Blood 11/21/2024 9:54 AM CDT 11/21/2024 9:54 AM CDT Shahnaz Heredia MD LAB POCT ORDERABLES - DEV ICE Final Result Performing Organization Address [facility] Co de Phone Number [facility] [place] [address] * (ABNORMAL) POCT Activated clotting time, low range (11/21/2024 9:20 AM CDT) ACT 360(H) 123 - 168 sec POC Performer [id number] [facility] POC Device Number [id number] [facility] Blood 11/21/2024 9:20 AM CDT 11/21/2024 9:20 AM CDT Shahnaz Heredia MD LAB POCT ORDERABLES - DEV ICE Final Result Performing Organization Address City/[facility] Co de Phone Number [facility] [place] [address] * (ABNORMAL) eGFR (11/21/2024 6:31 AM CDT) [...] MD LAB BLOOD ORDERABLES Fi nal Result [facility] One [facility] [place] [address] * (ABNORMAL) Differential, auto (11/21/2024 6:31 AM CDT) [facility] Neutrophil abs 5.81 1.50 - 6.50 K/cumm Imm gran abs 0.03 0.00 - 0.10 K/cumm [facility] Lymphocyte abs 1.28 0.80 - 3.30 K/cumm [facility] Monocyte abs 0.89(H) 0.20 - 0.80 K/cumm [facility] Eosinophil abs 0.05 0.00 - 0.50 K/cumm [facility] Basophil abs 0.03 0.00 - 0.10 K/cumm [facility] Neutrophil pct 71.8 % [facility] Comment: Interpretive Data Percent cell count reference ranges are not reported, since discordance with absolute values may lead to misinterpretation of CBC data. Current Interpretive Data was last revised on 2017. Imm gran pct 0.4 % [facility] Comment: Interpretive Data Percent cell count reference ranges are not reported, since discordance with absolute values may lead to misinterpretation of CBC data. Current Interpretive Data was last revised on 2017. Lymphocyte pct 15.8 % [facility] Comment: Interpretive Data Percent cell count reference ranges are not reported, since discordance with absolute values may lead to misinterpretation of CBC data. Current Interpretive Data was last revised on 2017. Monocyte pct 11.0 % [facility] Comment: Interpretive Data Percent cell count reference ranges are not reported, since discordance with absolute values may lead to misinterpretation of CBC data. Current Interpretive Data was last revised on 2017. Eosinophil pct 0.6 % [facility] Comment: Interpretive Data Percent cell count reference ranges are not reported, since discordance with absolute values may lead to misinterpretation of CBC data. Current Interpretive Data was last revised on 2017. Basophil pct 0.4 % [facility] Comment: Interpretive Data Percent cell count reference ranges are not reported, since discordance with absolute values may lead to misinterpretation of CBC data. Current Interpretive Data was last revised on 2017. Blood 11/21/2024 6:31 AM CDT 11/21/2024 6:47 AM CDT Anthony Gorman MD LAB BLOOD ORDERABLES Fi nal Result [facility] One [facility] Department [place] [address] * (ABNORMAL) CBC with auto differential (11/21/2024 6:31 AM CDT) WBC 8.09 3.80 - 9.90 K/cumm Hgb 9.9(L) 11.9 - 15.5 g/dL [facility] Hct 32.3(L) 35.6 - 45.5 % [facility] Plt 134(L) 150 - 400 K/cumm [facility] MPV 12.6(H) 9.1 - 12.3 fL [facility] RBC 3.31(L) 3.90 - 5.20 M/cumm [facility] [facility] MCV 97.6(H) 81.3 - 96.4 fL [facility] MCH 29.9 27.1 - 33.3 pg [facility] MCHC 30.7(L) 32.3 - 35.7 g/dL [facility] RDW CV 17.2(H) 11.1 - 14.9 % [facility] RDW SD 60.4(H) 35.7 - 48.1 fL [facility] NRBC abs 0.02(H) 0.00 - 0.01 K/cumm [facility] Blood 11/21/2024 6:31 AM CDT 11/21/2024 6:47 AM CDT Anthony Gorman MD LAB BLOOD ORDERABLES Fi nal Result [facility] [place] [address] * (ABNORMAL) Lipid panel (11/21/2024 6:31 AM [...] revised on 2018. Triglycerides 90 <=149 mg/dL [facility] Comment: Interpretive Data Ages [...] revised on 2018. HDL 35(L) >=40 mg/dL [facility] Comment: Interpretive Data Ages [...] on 2018. LDL, calculated 46 <=129 mg/dL [facility] Comment: Interpretive Data Ages [...] revised on 2024. Non-HDL Cholesterol 64 mg/dL [facility] Comment: Interpretive Data Ages [...] last revised on 2018. Chol/HDL ratio 3 [facility] Blood 11/21/2024 6:31 AM CDT 11/21/2024 6:47 AM CDT us nAthony Gorman MD LAB BLOOD ORDERABLES Fi nal Result [facility] [place] [address] * (ABNORMAL) Basic metabolic panel (11/21/2024 6:31 AM CDT) Sodium 135 135 - 145 mmol/L Potassium, pl 4.9 3.3 - 4.9 mmol/L [facility] Chloride 92(L) 97 - 110 mmol/L [facility] CO2 32 22 - 32 mmol/L [facility] Anion gap 11 2 - 15 mmol/L [facility] BUN 50(H) 6 - 25 mg/dL [facility] Creatinine 5.26(H) 0.60 - 1.10 mg/dL [facility] Glucose 231(H) 70 - 199 mg/dL [facility] Comment: Interpretive Data Fasting [...] 2022. Calcium 10.3 8.5 - 10.3 mg/dL [facility] Blood 11/21/2024 6:31 AM CDT 11/21/2024 6:47 AM CDT Result [facility] Anthony Gorman MD LAB BLOOD ORDERABLES Fi nal Result Performing Organization Address [facility] Co de Phone Number [facility] [place] [address] * Hepatitis C antibody (08/19/2020 12:07 PM REGISTERED DIETICIAN) Pathologist [facility] Hep C Ab Nonreactive Nonreactive [facility] Comment:Antibodies to HCV no t detected. Does NOT exclude the possibility of recent exposure to HCV. Blood specimen (specimen) 08/19/2020 12:07 PM REGISTERED DIETICIAN 08/19/2020 12:15 PM REGISTERED DIETICIAN Result [facility] Humza Trevizo MD LAB MICROB IOLOGY - GENERAL ORDERABLES Edited Result - Final Performing Organization Address [facility] de Phone Number [facility] [place] [address] * (ABNORMAL) Hemoglobin A1c (09/04/2019 12:14 AM REGISTERED DIETICIAN) Pathologist [facility] Hgb A1C 8.2(H) 4.0 - 5.6 % [facility] Estimated Average Glucose 189 mg/dL [facility] Comment: The ADA recommends reporting an estimated Average Glucose (eAG) with all Hemoglobin A1c results using the equation derived from a study of 507 normal and diabetic adults. Minority populations were underrepresented and children were not included. (Diabetes Care 31:9638-5216, 2008). The eAG is not equivalent to a fasting glucose. Blood specimen (specimen) 09/04/2019 12:14 AM REGISTERED DIETICIAN 09/04/2019 12:58 AM REGISTERED DIETICIAN Result [facility] Brandin Pena MD LAB BLOOD ORDERABLES Final Result Performing Organization Address [facility] Co de Phone Number [facility] [place] [address] from Last 3 Months or Most Recently Relevant to Health Maintenance Insurance [facility] MEDICARE ADVANTAGE IDPA MEDICARE [facility] Address: [address] [address] [place] [address] [facility] MEDICARE ADVANTAGE IDLA [facility] MEDICARE ADVANTAGE [employer]LA Advance Directives For more information, please contact: [phone] * Full Code (Latest Code Status on File) Date Activated Date Inactivated Comments 11/21/2024 7:27 AM 11/22/2024 8:58 PM * Full Code Date Activated Date Inactivated Comments 08/28/2024 6:35 AM 08/29/2024 9:01 PM * Full Code Date Activated Date Inactivated Comments 09/03/2019 11:07 PM 09/04/2019 6:57 PM * Full Code Date Activated Date Inactivated Comments 07/23/2018 10:39 PM 07/24/2018 7:45 PM Care Teams Potato Bucker Relationship Specialty Start Date End Date David Coppola MD PCP - General Family Medicine 10/29/17 Jacob Suarez MD Referring Physician Nephrology 12/20/18 Ros Seay MD Transportation Services Representative Cardiology 03/05/19 Abdifatah Villa MD [address] [place] [address] Consulting Physician Cardiology 09/01/20 Issa Clements MD [address] [facility] [address] [place] [address] Referring Physician General Surgery 09/01/20
--- OUTSIDE RECORDS SUMMARY | 2025-02-12 08:27 | XMS_ITS | Encounter Summary ---
Author Organization [facility] Address [address] [facility] [place] [address] Care Team Providers Care District Or District Office Director Name Role Phone David Coppola MD Primary Care Provider +- [phone] David Coppola MD Unavailable [phone] David Coppola MD Unavailable [phone] Virginie Corea RN Unavailable [phone] Reason for Referral * Radiology Services (Routine) - Open Specialty Diagnoses / Procedures Referred By Mark t Referred To Contact Diagnoses Hepatitis B core antibody positive Procedures PROC FIBROSCAN Avis Dumont APRN-CNP [address] [place] [address] [address] [place] [address] Phone: tel: fax: Referral ID Status Reason Start Date Expiration Date Visits Re quested Visits Authorized [id number] Open 02/03/2025 02/03/2026 1 1 Encounter Details Date Type Department Care Team (Late st Contact Info) Description 02/03/2025 Orders Only [facility] [place] [address] [facility], [place] [address] Avis Dumont APRN-CNP [address] [place] [address] [address] [place] [address] Hepatitis B core antibody positive Social History Tobacco Use Types Packs/Day Years Used Date Smoking Tobacco: Never Smokeless Tobacco: Never Alcohol Use Standard Drinks/Week Comments No 0 (1 standard drink = 0.6 oz pur e alcohol) Comments No Sex and Gender Information Value Date Recorded Sex Assigned at Not on file 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 Gender Identity Not on file Sexual [...] Info) Description 03/10/2025 11:00 AM CDT Appointment [facility] [address] [facility], [address] [place] [address] [place] [address] [facility] [address] [place] [address] [place] [address] [facility] [address] [place] [address] Cristo Fontenot MD [address] [place] [address] 03/17/2025 1:00 PM CDT Procedure visit [facility] [place] [address] [place] [address], [place] [address] 03/17/2025 1:30 PM CDT Office Visit [facility] [address] [place] [phone] Avis Dumont, GRAINING PRESS OPERATOR-LUNCH COUNTER MANAGER [address] [place] [address] [place] [address] Scheduled Orders Name Type Priority Associated Diagnoses Orde r Schedule PROC FIBROSCAN Procedures Routine Hepatitis B core antibody positive 1 Occurrences starting 02/03/2025 until 02/03/2026 documented as of this encounter Visit Diagnoses Diagnosis Hepatitis B core antibody positive- Primary Other and unspecified nonspecific immunological findings documented in this encounter Care Teams District Or District Office Director Relationship Specialty Start Date End Date David Coppola MD [address] [place] [phone] PCP - General 08/15/16 David Coppola MD [address] [place] [phone] Family Medicine 02/08/15 David Coppola MD [address] [place] [phone] Family Medicine 08/15/16 Virginie Corea, ABENA Duplicating Machine Servicer 02/23/15 documented as of this encounter
--- OUTSIDE RECORDS SUMMARY | 2025-02-12 08:27 | XMS_ITS | Encounter Summary ---
Author Organization [facility] Address [address] [place] [address] Phone Care Team Providers Care Cable Former Name Role Phone David Coppola MD Primary Care Provider [phone] David Coppola MD Primary Care Provider [phone] David Coppola MD Primary Care Provider + [phone] David Coppola MD Primary Care Provider [phone] Unknown, Notinfile Primary Care Provider Unavail able David Coppola MD Primary Care Provider [phone] Jacob Suarez MD Unavailable [phone] Marnie Lara RN Unavailable Ros Seay MD Unavailable [phone] Johana Edmond RN Unavailable Abdifatah Villa MD Unavailable Issa Clements MD Unavailable [phone] Encounter Details Date Type Department Care Team (Latest Contact Info) Description 12/16/1980 Orders Only [facility] Scanning, Provider Social History Tobacco Use Types Packs/Day Years Used Date Smoking Tobacco: Never Assessed Comments Unknown Sex and Gender Information Value Date Recorded Sex Assigned at Not on file Legal Sex Female 12:39 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 Gender Identity Not on file Sexual Orientation [...] adult 09/04/2019 09/04/2019 09/11/2019 3:05 AM MANAGER AIR Abscess/Wound/Cellulitis 10/16/2019 10/16/2019 3:05 AM CDT documented as of this encounter Care Teams Cable Former Relationship Specialty Start Date End Date David [...] Nephrology 12/20/18 Marnie Lara, RN Registered Nurse Vocational Rehabilitation Specialist 12/20/1809/03 Ros Seay MD Tension Worker Cardiology 03/05/19 Johana Edmond, RN [address] [facility] [address] [place] [address] Vocational Rehabilitation Specialist 08/21/19 Abdifatah Villa MD [address] [facility] C [facility] [address] [facility] C, [facility] [address] [place] [address] Consulting Physician Cardiology 09/01/20 Issa Clements MD [address] [facility] [address] [place] [address] Referring Physician General Surgery 09/01/20 documented as of this encounter
--- OUTSIDE RECORDS SUMMARY | 2025-02-12 08:27 | XMS_ITS | Encounter Summary ---
Author Organization [facility] Address [address] [facility] [place] [address] Care Team Providers Care Assistant Track Coach Name Role Phone aDvid Coppola MD Primary Care Provider + [phone] David Coppola MD Unavailable [phone] David Coppola MD Unavailable [phone] Virginie Corea RN Unavailable [phone] Encounter Details Date Type Department Care Team (Late st Contact Info) Description 04/10/2018 Nutrition [facility] TRANSPLANT [address] [place] [phone] [address]/LAURA Social History Tobacco Use Types Packs/Day Years Used Date Smoking Tobacco: Never Smokeless Tobacco: Never Alcohol Use Standard Drinks/Week Comments No 0 (1 standard drink = 0.6 oz pur e alcohol) Comments No Sex and Gender Information Value Date Recorded Sex Assigned at Not on file 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 Gender Identity Not on file Sexual Orientation [...] AM CDT Appointment [facility] [address] [facility], [address] [place], [place] [phone] [place] [address] [facility] [address] [place] [address] [place] [address] [facility] [address] [place] [address] Cristo Fontenot MD [address] [place] [address] 03/17/2025 1:00 PM CDT Procedure visit [facility] [address] [place] [phone] 03/17/2025 1:30 PM CDT Office Visit [facility] [address] [place] [phone] Avis Dumont, CHROME WORKER-LOG RIDER [address] [place] [address] [place] [address] documented as of this encounter Visit Diagnoses Not on filedocumented in this encounter Care Teams Assistant Track Coach Relationship Specialty Start Date End Date David Coppola MD [address] [place] [phone] PCP - General 08/15/16 David Coppola MD [address] [place] [phone] Family Medicine 02/08/15 David Coppola MD [address] [place] [phone] Family Medicine 08/15/16 Virginie Corea RN Bone Cooking Operator 02/23/15 documented as of this encounter
[2025-02-12 08:28] LABS: Hematocrit 38.0 % (37.0-47.0); Hemoglobin 11.7 g/dL (12.0-15.0); Immature Granulocyte Percent A 0.5 % (0-0.5); Lymphocytes Absolute Auto 0.99 K/mm3 (0.9-3.2); Mean Corpuscular HGB Conc 30.8 g/dl (32-36); Mean Corpuscular Hemoglobin 31.0 pg (26-34); Mean Corpuscular Volume 100.8 fl (80-100); Nucleated Red Blood Cells Absolute Auto 0.000 K/mm3 (0.0-0.012); Nucleated Red Blood Cells Perc 0.0 % (0.0-0.2); Platelet Count Result 132 k/mm3 (150-375); Red Blood Count 3.77 M/mm3 (4.2-5.4); White Blood Count 8.8 K/mm3 (4.5-10.0)
--- OUTSIDE RECORDS SUMMARY | 2025-02-12 08:28 | XMS_ITS ---
Author Organization [facility] [address] Address [address] [place] [address] Care Team Providers Care Drafting Layout Man Name Role Phone David Coppola MD Primary Care Provider [phone] Jacob Suarez MD Unavailable Ros Seay MD Unavailable Abdifatah Villa MD Unavailable Issa Clements MD Unavailable [phone] Dialysis Access Sites Type Status Location [...] Routine) 12/23/2024 11:51 AM CDT Atherosclerosis of [place] arteries of extremities with rest pain, bilateral legs (HCC) Atherosclerosis of [place] arteries of extremities with rest pain, left leg (HCC) US ARTERIAL DOPPLER LOWER EXTREMITY BILATERAL Schedule Routine, Read Routine (OP Routine) 12/23/2024 11:17 AM CDT Atherosclerosis of [place] arteries of extremities with intermittent claudication, right leg Atherosclerosis of [place] arteries of extremities with rest pain, bilateral [...] HEPATITIS C ANTIBODY Routine 08/19/2020 12:07 PM YARDER OPERATOR ESRD (end stage renal disease) (HCC) HEMOGLOBIN A1C Routine 09/04/2019 12:14 AM YARDER OPERATOR from Last 3 Months or Most Recently [...] GIB. Patients daughter reports recent admission to [facility] due to concern for GIB. Patient followed up with her outpatient GI. Planning for EGD at the end of November - continue PPI. Assessment & Plan (11/21/2024 3:03 PM CDT): History of peptic ulcer with GIB. Patients daughter reports recent admission to [facility] due to concern for GIB. Patient followed up with her outpatient GI. 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 Reviewed PCP records noted hypoglycemia last hospital admit with basal insulins continued Will continue januvia and hold tresiba and victoza SSI Family history of ischemic h eart disease and other diseases of the circulatory system 11/27/2019 Critical limb ischemia of right lower extremity 10/14/2019 Overview (10/14/2019): Added automatically from request for surgery [id number] Assessment & Plan (08/28/2024 12:59 PM YARDER OPERATOR): S/p uncomplicated balloon angioplasty of the AT, [...] (10/14/2019): Added automatically from request for surgery [id number] Presence of Watchman left atrial appendage closu re device 08/29/2018 Atrial fibrillation, permanent 06/13/2018 Overview (06/13/2018): Added automatically from request for surgery [id number] Assessment & Plan (11/22/2024 1:43 PM CDT): Rate controlled and s/p Watchman due to prior GIB. - continue home coreg as below. Assessment & Plan (11/21/2024 3:39 PM CDT): Rate controlled and s/p Watchman due to prior GIB. - continue home coreg as below Assessment & Plan (08/28/2024 1:03 PM YARDER OPERATOR): Follows with [facility] cardiology. Rate controlled and s/p Watchman due to prior severe GIB Recently stopped coreg due to bradycardia ASA and plavix to start per IR recs post revascularization Assessment & Plan (07/24/2018 9:29 AM YARDER OPERATOR): Continue coreg. S/p Watchmann DAVIDA occluder implant for future deescalate anticoagulation. Continue apixiban for now as per EP. Post procedure CXR. 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 PAD (peripheral artery disease) 03/15/2018 Overview (03/15/2018): Added automatically from request for surgery [id number] Assessment & Plan (11/22/2024 1:43 PM CDT): [...] (03/15/2018): Added automatically from request for surgery [id number] Ischemia of foot 03/15/2018 Overview (03/15/2018): Added automatically from request for surgery [id number] Noncompliance 02/24/2018 Essential hypertension 11/10/2017 Assessment & Plan (11/22/2024 1:43 PM CDT): On lisinopril and coreg at home, holding today for lower BP. Resume as able. Assessment & Plan (11/21/2024 3:03 PM CDT): Continue home lisinopril and coreg Assessment & Plan (07/24/2018 9:27 AM YARDER OPERATOR): Continue home meds and dialysis. Hyperlipidemia associated [...] today Assessment & Plan (08/29/2024 4:04 PM YARDER OPERATOR): Routine M/W/F r brachial fistula (has required multiple dilations last at [facility] 07/2024 Feeling well post procedure denies dyspnea. Renal consulted for HD prior to discharge Assessment & Plan (07/24/2018 9:26 AM YARDER OPERATOR): HD as per renal consult. Resume outpt [...] often do you attend chur ch or cheondoism services? 1 to 4 times per year 09/04/2019 Do you belong to any clubs o r organizations such as orthodox groups, unions, fraternal or athletic groups, or [...] on file Legal Sex Female 12:39 PM YARDER OPERATOR Gender Identity Not on file Sexual [...] DATE: 12/23/2024 10:00 AM HISTORY: Atherosclerosis of [place] Arteries of Extremities with Rest Pain, Bilateral [...] DATE: 12/23/2024 10:00 AM HISTORY: Atherosclerosis of [place] Arteries of Extremities with Rest Pain, Bilateral [...] by: Cezar Antonio MD Anthony Gorman MD [facility] US PROCEDURES Final Result * US MELISSA [...] DATE: 12/23/2024 10:00 AM HISTORY: Atherosclerosis of [place] Arteries of Extremities with Rest Pain, Bilateral [...] DATE: 12/23/2024 10:00 AM HISTORY: Atherosclerosis of [place] Arteries of Extremities with Rest Pain, Bilateral [...] DEV ICE Final Result Performing Organization Address City/[facility] Co de Phone Number [facility] Department [facility] [employer] [place] [address] * (ABNORMAL) POCT glucose (11/22/2024 8:28 AM CDT) Glucose, POC 230(H) 70 - 199 mg/dL Blood 11/22/2024 8:28 AM CDT 11/22/2024 8:28 AM CDT Shahnaz Heredia MD LAB POCT ORDERABLES - DEV ICE Final Result [facility] [employer] [place] [address] * (ABNORMAL) eGFR (11/22/2024 7:56 AM CDT) [...] LAB BLOOD ORDERABLES Final R [facility]ult [facility] [employer] [place] [address] * Hepatitis B Surface Antigen Blood (11/22/2024 7:56 AM CDT) HepBsAg Nonreactive Nonreactive Blood 11/22/2024 7:56 AM CDT 11/22/2024 8:36 AM CDT Nina Hopson MD LAB MICROB IOLOGY - GENERAL ORDERABLES Edited Result - Final Performing Organization Address City/[facility]/ZIP Co de Phone Number [facility] [place] [address] * (ABNORMAL) CBC without differential (11/22/2024 7:56 AM CDT) WBC 7.32 3.80 - 9.90 K/cumm Hgb 8.6(L) 11.9 - 15.5 g/dL [facility] Hct 28.8(L) 35.6 - 45.5 % [facility] Plt 111(L) 150 - 400 K/cumm [facility] MPV 12.6(H) 9.1 - 12.3 fL [facility] RBC 2.91(L) 3.90 - 5.20 M/cumm [facility] MCV 99.0(H) 81.3 - 96.4 fL [facility] MCH 29.6 27.1 - 33.3 pg [facility] MCHC 29.9(L) 32.3 - 35.7 g/dL [facility] RDW CV 17.2(H) 11.1 - 14.9 % [facility] RDW SD 60.7(H) 35.7 - 48.1 fL [facility] NRBC abs 0.00 0.00 - 0.01 K/cumm [facility] Blood 11/22/2024 7:56 AM CDT 11/22/2024 8:37 AM CDT us Tomy GUADARRAMA LAB BLOOD ORDERABLES Final R esult [facility] [place] [address] * (ABNORMAL) Basic metabolic panel (11/22/2024 7:56 AM CDT) Sodium 131(L) 135 - 145 mmol/L Potassium, pl 5.5(H) 3.3 - 4.9 mmol/L [facility] Chloride 92(L) 97 - 110 mmol/L [facility] CO2 29 22 - 32 mmol/L [facility] Anion gap 10 2 - 15 mmol/L [facility] BUN 58(H) 6 - 25 mg/dL [facility] Creatinine 6.13(H) 0.60 - 1.10 mg/dL [facility] Glucose 257(H) 70 - 199 mg/dL [facility] Comment: Interpretive Data Fasting glucose >/= [...] 2022. Calcium 8.8 8.5 - 10.3 mg/dL [facility] Blood 11/22/2024 7:56 AM CDT 11/22/2024 8:37 AM CDT us Tomy GUADARRAMA LAB BLOOD ORDERABLES Final R esult [facility] [place] [address] * (ABNORMAL) eGFR (11/21/2024 10:36 PM CDT) [...] 11/21/2024 10:49 PM CDT us Christina Fermin LONG DISTANCE BILLING OPERATOR LAB BLOOD ORDERABLES Final Result [facility] [place] [address] * (ABNORMAL) CBC without differential (11/21/2024 10:36 PM CDT) [facility] WBC 8.51 3.80 - 9.90 K/cumm Hgb 8.9(L) 11.9 - 15.5 g/dL [facility] Hct 29.8(L) 35.6 - 45.5 % [facility] Plt 112(L) 150 - 400 K/cumm [facility] MPV 12.7(H) 9.1 - 12.3 fL [facility] RBC 3.01(L) 3.90 - 5.20 M/cumm [facility] MCV 99.0(H) 81.3 - 96.4 fL [facility] MCH 29.6 27.1 - 33.3 pg [facility] MCHC 29.9(L) 32.3 - 35.7 g/dL [facility] RDW CV 17.2(H) 11.1 - 14.9 % [facility] RDW SD 60.3(H) 35.7 - 48.1 fL [facility] NRBC abs 0.02(H) 0.00 - 0.01 K/cumm [facility] Blood 11/21/2024 10:3 6 PM CDT 11/21/2024 10:49 PM CDT us Christina Fermin LONG DISTANCE BILLING OPERATOR LAB BLOOD ORDERABLES Final Result [facility] Department [place] [address] * (ABNORMAL) Phosphorus (11/21/2024 10:36 PM CDT) Pathologist [facility] Phosphorus, pl 6.5(H) 2.3 - 4.5 mg/dL Blood 11/21/2024 10:3 6 PM CDT 11/21/2024 10:49 PM CDT us Robles Alicea MD LAB BLOOD ORDERABLES Gertrude l Result [facility] [place] [address] * (ABNORMAL) Basic metabolic panel (11/21/2024 10:36 PM CDT) Pathologist [facility] Sodium 135 135 - 145 mmol/L Potassium, pl 5.5(H) 3.3 - 4.9 mmol/L [facility] Chloride 93(L) 97 - 110 mmol/L [facility] CO2 29 22 - 32 mmol/L [facility] Anion gap 13 2 - 15 mmol/L [facility] BUN 57(H) 6 - 25 mg/dL [facility] Creatinine 5.81(H) 0.60 - 1.10 mg/dL [facility] Glucose 257(H) 70 - 199 mg/dL [facility] Comment: Interpretive Data Fasting glucose >/= [...] 2022. Calcium 9.6 8.5 - 10.3 mg/dL [facility] Blood 11/21/2024 10:3 6 PM CDT 11/21/2024 10:49 PM CDT us Christina Fermin NP LAB BLOOD ORDERABLES Final Result [facility] [place] [address] * POCT glucose (11/21/2024 8:23 PM CDT) Glucose, POC 119 70 - 199 mg/dL Blood 11/21/2024 8:23 PM CDT 11/21/2024 8:23 PM CDT Shahnaz Heredia MD LAB POCT ORDERABLES - DEV ICE Final Result Performing Organization Address City/[facility] [place] [address] * POCT glucose (11/21/2024 5:24 PM CDT) Glucose, POC 188 70 - 199 mg/dL Blood 11/21/2024 5:24 PM CDT 11/21/2024 5:24 PM CDT Shahnaz Heredia MD LAB POCT ORDERABLES - DEV ICE Final Result Performing Organization Address [facility] [place] [address] * IR Angiogram Lower Extremity Right (11/21/2024 [...] was obtained. Prior to beginning the procedure, [place] Protocol was performed to confirm the patient's [...] of the patent vessel was recorded. The 5-Venezuelan catheter was placed in the superficial femoral artery and the right lower extremity angiogram was performed in stations to the foot A 45 cm 6-Venezuelan sheath was advanced to the superficial femoral [...] was obtained. Prior to beginning the procedure, [place] Protocol was performed to confirm the patient's [...] of the patent vessel was recorded. The 5-[place]enezuelan catheter was placed in the superficial femoral artery and the right lower extremity angiogram was performed in stations to the foot A 45 cm 6-Venezuelan sheath was advanced to the superficial femoral [...] 318(H) 123 - 168 sec POC Performer [id number] [facility] POC Device Number [id number] [facility] Blood 11/21/2024 10:3 6 AM CDT 11/21/2024 10:36 AM CDT Shahnaz Heredia MD LAB POCT ORDERABLES - DEV ICE Final Result Performing Organization Address [facility] Co de Phone Number [facility] [employer] [place] [address] * (ABNORMAL) POCT Activated clotting time, low range (11/21/2024 9:54 AM CDT) ACT 331(H) 123 - 168 sec POC Performer [id number] [facility] POC Device Number [id number] [facility] Blood 11/21/2024 9:54 AM CDT 11/21/2024 9:54 AM CDT Shahnaz Heredia MD LAB POCT ORDERABLES - DEV ICE Final Result Performing Organization Address [facility] Co de Phone Number [facility] [employer] [place] [address] * (ABNORMAL) POCT Activated clotting time, low range (11/21/2024 9:20 AM CDT) ACT 360(H) 123 - 168 sec POC Performer [id number] [facility] POC Device Number [id number] [facility] Blood 11/21/2024 9:20 AM CDT 11/21/2024 9:20 AM CDT Shahnaz Heredia MD LAB POCT ORDERABLES - DEV ICE Final Result Performing Organization Address City/[facility]/ZIP Co de Phone Number [facility] [place] [address] * (ABNORMAL) eGFR (11/21/2024 6:31 AM CDT) [...] MD LAB BLOOD ORDERABLES Fi nal Result [facility] [place] [address] * (ABNORMAL) Differential, auto (11/21/2024 6:31 AM CDT) Pathologist [facility] Neutrophil abs 5.81 1.50 - 6.50 K/cumm Imm gran abs 0.03 0.00 - 0.10 K/cumm [facility] Lymphocyte abs 1.28 0.80 - 3.30 K/cumm [facility] Monocyte abs 0.89(H) 0.20 - 0.80 K/cumm [facility] Eosinophil abs 0.05 0.00 - 0.50 K/cumm [facility] Basophil abs 0.03 0.00 - 0.10 K/cumm [facility] Neutrophil pct 71.8 % [facility] Comment: Interpretive Data Percent cell count reference ranges are not reported, since discordance with absolute values may lead to misinterpretation of CBC data. Current Interpretive Data was last revised on 2017. Imm gran pct 0.4 % [facility] Comment: Interpretive Data Percent cell count reference ranges are not reported, since discordance with absolute values may lead to misinterpretation of CBC data. Current Interpretive Data was last revised on 2017. Lymphocyte pct 15.8 % [facility] Comment: Interpretive Data Percent cell count reference ranges are not reported, since discordance with absolute values may lead to misinterpretation of CBC data. Current Interpretive Data was last revised on 2017. Monocyte pct 11.0 % [facility] Comment: Interpretive Data Percent cell count reference ranges are not reported, since discordance with absolute values may lead to misinterpretation of CBC data. Current Interpretive Data was last revised on 2017. Eosinophil pct 0.6 % [facility] Comment: Interpretive Data Percent cell count reference ranges are not reported, since discordance with absolute values may lead to misinterpretation of CBC data. Current Interpretive Data was last revised on 2017. Basophil pct 0.4 % [facility] Comment: Interpretive Data Percent cell count reference ranges are not reported, since discordance with absolute values may lead to misinterpretation of CBC data. Current Interpretive Data was last revised on 2017. Blood 11/21/2024 6:31 AM CDT 11/21/2024 6:47 AM CDT us Anthony Gorman MD LAB BLOOD ORDERABLES Fi nal Result [facility] [place] [address] * (ABNORMAL) CBC with auto differential (11/21/2024 6:31 AM CDT) WBC 8.09 3.80 - 9.90 K/cumm Hgb 9.9(L) 11.9 - 15.5 g/dL [facility] Hct 32.3(L) 35.6 - 45.5 % [facility] Plt 134(L) 150 - 400 K/cumm [facility] MPV 12.6(H) 9.1 - 12.3 fL [facility] RBC 3.31(L) 3.90 - 5.20 M/cumm [facility] MCV 97.6(H) 81.3 - 96.4 fL [facility] MCH 29.9 27.1 - 33.3 pg [facility] MCHC 30.7(L) 32.3 - 35.7 g/dL [facility] RDW CV 17.2(H) 11.1 - 14.9 % [facility] RDW SD 60.4(H) 35.7 - 48.1 fL [facility] NRBC abs 0.02(H) 0.00 - 0.01 K/cumm [facility] Blood 11/21/2024 6:31 AM CDT 11/21/2024 6:47 AM CDT us Anthony Gorman MD LAB BLOOD ORDERABLES Fi nal Result [facility] [place] [address] * (ABNORMAL) Lipid panel (11/21/2024 6:31 AM [...] revised on 2018. Triglycerides 90 <=149 mg/dL [facility] Comment: Interpretive Data Ages < or [...] revised on 2018. HDL 35(L) >=40 mg/dL [facility] Comment: Interpretive Data Ages < or [...] on 2018. LDL, calculated 46 <=129 mg/dL [facility] Comment: Interpretive Data Ages < or [...] revised on 2024. Non-HDL Cholesterol 64 mg/dL [facility] Comment: Interpretive Data Ages < or [...] last revised on 2018. Chol/HDL ratio 3 [facility] Blood 11/21/2024 6:31 AM CDT 11/21/2024 6:47 AM CDT us Anthony Gorman MD LAB BLOOD ORDERABLES Fi nal Result [facility] [place] [address] * (ABNORMAL) Basic metabolic panel (11/21/2024 6:31 AM CDT) Sodium 135 135 - 145 mmol/L Potassium, pl 4.9 3.3 - 4.9 mmol/L [facility] Chloride 92(L) 97 - 110 mmol/L [facility] CO2 32 22 - 32 mmol/L [facility] Anion gap 11 2 - 15 mmol/L [facility] BUN 50(H) 6 - 25 mg/dL [facility] Creatinine 5.26(H) 0.60 - 1.10 mg/dL [facility] Glucose 231(H) 70 - 199 mg/dL [facility] Comment: Interpretive Data Fasting glucose >/= [...] 2022. Calcium 10.3 8.5 - 10.3 mg/dL [facility] Blood 11/21/2024 6:31 AM CDT 11/21/2024 6:47 AM CDT Anthony Gorman MD LAB BLOOD ORDERABLES Fi nal Result Performing Organization Address [facility] Co de Phone Number [facility] Department [facility] [employer] [place] [address] * Hepatitis C antibody (08/19/2020 12:07 PM YARDER OPERATOR) Pathologist [facility] Hep C Ab Nonreactive Nonreactive [facility] Comment:Antibodies to HCV no t detected. Does NOT exclude the possibility of recent exposure to HCV. Blood specimen (specimen) 08/19/2020 12:07 PM YARDER OPERATOR 08/19/2020 12:15 PM YARDER OPERATOR Humza Trevizo MD LAB MICROB IOLOGY - GENERAL ORDERABLES Edited Result - Final Performing Organization Address [facility] Co de Phone Number [facility] [employer] [place] [address] * (ABNORMAL) Hemoglobin A1c (09/04/2019 12:14 AM YARDER OPERATOR) Pathologist [facility] Hgb A1C 8.2(H) 4.0 - 5.6 % [facility] Estimated Average Glucose 189 mg/dL [facility] Comment: The ADA recommends reporting an estimated Average Glucose (eAG) with all Hemoglobin A1c results using the equation derived from a study of 507 normal and diabetic adults. Minority populations were underrepresented and children were not included. (Diabetes Care 31:4517-7676, 2008). The eAG is not equivalent to a fasting glucose. Blood specimen (specimen) 09/04/2019 12:14 AM YARDER OPERATOR 09/04/2019 12:58 AM YARDER OPERATOR us Brandin Pena MD LAB BLOOD ORDERABLES Final Result Performing Organization Address City/State/[facility] Co de Phone Number [facility] [place] [address] from Last 3 Months or Most Recently Relevant to Health Maintenance
--- OUTSIDE RECORDS SUMMARY | 2025-02-12 08:28 | XMS_ITS | Encounter Summary ---
Author Organization [facility] Address [address] [place] [address] Care Team Providers Care Vp Director Of Creative Strategy Name Role Phone David Coppola MD Primary Care Provider + [phone] David Coppola MD Primary Care Provider + [phone] David Coppola MD Unavailable [phone] David Coppola MD Unavailable [phone] Virginie Corea RN Unavailable [phone] Encounter Details Date Type Department Care Team (Late Contact Info) Description 02/08/2015 [facility] Outpatient Visit EXTERNAL NON-[facility] DEPT David Buitrago MD [address] [place] [address] [address] [place] [phone] Social History Tobacco Use Types Packs/Day Years Used Date Smoking Tobacco: Never Alcohol Use Standard Drinks/Week Comments No 0 (1 standard drink = 0.6 oz pur e alcohol) Comments Unknown Sex and Gender Information Value Date Recorded Sex Assigned at Not on file Legal Sex Female 5:40 PM STOCK MOVER Gender Identity Not on file Sexual Orientation Not on file documented as of this encounter Plan of Treatment Upcoming Encounters Date Type Department Care Team (Late Contact Info) Description 03/10/2025 11:00 AM CDT Appointment [facility] Vascular Services [id number] [place] [address], [address] [place] [address] [place] [address] [facility] [address] [place] [address] [place] [address] [facility] [address] [place] [address] Cristo Fontenot MD [address] [place] [address] 03/17/2025 1:00 PM CDT Procedure visit [facility] [address] [place] [address], [place] [phone] 03/17/2025 1:30 PM CDT Office Visit [facility] [address] [place] [phone] Avis Dumont, WEB SITE PROJECT MANAGER-RESEARCH CONSULTANT [address] [place] [address] [place] [phone] documented as of this encounter Visit Diagnoses Not on filedocumented in this encounter Care Teams Vp Director Of Creative Strategy Relationship Specialty Start Date End Date Davdi Coppola MD [address] [place] [phone] PCP - General Family Medicine 02/08/15 08/14/16 David Coppola MD [address] [place] [phone] PCP - General 08/15/16 David Coppola MD [address] [place] [phone] Family Medicine 02/08/15 David Coppola MD [address] [place] [phone] Family Medicine 08/15/16 Virginie Corea, ABENA Automation Test Developer 02/23/15 documented as of this encounter
--- OUTSIDE RECORDS SUMMARY | 2025-02-12 08:28 | XMS_ITS | Clinical Summary ---
Author Organization [facility] Address [address] [place] [address] Phone Care Team Providers Care Card Player Name Role Phone David Coppola MD Primary Care Provider [phone] Allergies Active Allergy Reactions Criticality Noted Date [...] Comments Blood Pressure 71/53 09/01/2020 2:54 PM INSTRUCTIONAL SUPPORT SERVICES DIRECTOR 148 /36 Pulse 72 09/01/2020 2:54 PM INSTRUCTIONAL SUPPORT SERVICES DIRECTOR Temperature 36.4 C (97.6 F) 09/01/2020 2:54 PM INSTRUCTIONAL SUPPORT SERVICES DIRECTOR Respiratory Rate - - Oxygen Saturation 97% 09/01/2020 2:54 PM INSTRUCTIONAL SUPPORT SERVICES DIRECTOR Inhaled Oxygen Concentration - - Weight 56.6 kg (124 lb 11.2 oz) 09/01/2020 2:54 PM INSTRUCTIONAL SUPPORT SERVICES DIRECTOR Height 144.8 cm (4' 9) 09/01/2020 2:54 PM INSTRUCTIONAL SUPPORT SERVICES DIRECTOR Body Mass Index 26.98 09/01/2020 2:54 PM INSTRUCTIONAL SUPPORT SERVICES DIRECTOR Plan of Treatment Health Maintenance Due Date [...] 1 , 04/09/2014, 04/09/2014 Insurance [place]ID [place] [facility] [id number] Care Teams Card Player Relationship Specialty Start Date End Date David Coppola MD PCP - General Family Practice 05/14/20
--- OUTSIDE RECORDS SUMMARY | 2025-02-12 08:28 | XMS_ITS | Encounter Summary ---
Author Organization [facility] Address [address] [place] [address] Phone Care Team Providers Care Mechatronics Technician Name Role Phone David Coppola MD Primary Care Provider [phone] Jacob Suarez MD Unavailable Marnie Lara RN Unavailable Ros Seay MD Unavailable Johana Edmond RN Unavailable Abdifatah Villa MD Unavailable Issa Clements MD Unavailable [phone] Encounter Details Date Type Department Care Team (Late st Contact Info) Description 05/13/2018 Telephone [facility] Cardiology [address] [facility] Advanced Medicine 8th [place] [address] [place] [address] Cameron Haro MD [address] [place] [address] Social History Tobacco Use Types Packs/Day Years Used Date Smoking Tobacco: Never Smokeless Tobacco: Never Alcohol Use Standard Drinks/Week Comments No 0 (1 standard drink = 0.6 oz pur e alcohol) Comments No Sex and Gender Information Value Date Recorded Sex Assigned at Not on file Legal Sex Female 12:39 PM ASSOCIATE ACCOUNTANT Gender Identity Not on file Sexual Orientation [...] Influenza, adult 09/04/2019 09/04/2019 09/11/2019 3:05 AM ASSOCIATE ACCOUNTANT Abscess/Wound/Cellulitis 10/16/2019 10/16/2019 3:05 AM CDT documented as of this encounter Care Teams Mechatronics Technician Relationship Specialty Start Date End Date David Coppola MD PCP - General Family Medicine 10/29/17 Jacob Suarez MD Referring Physician Nephrology 12/20/18 Marnie Lara RN Registered Nurse Black Off Worker 12/20/1809/03 Ros Seay MD Supervisor Blast Furnace Cardiology 03/05/19 Johana Edmond, RN [address] [facility] [address] [place] [address] Black Off Worker 08/21/19 Abdifatah Villa MD [address] [facility] [address] [place] [address] Consulting Physician Cardiology 09/01/20 Issa Clements MD [address] [facility] [address] [place] [address] Referring Physician General Surgery 09/01/20 documented as of this encounter
--- OUTSIDE RECORDS SUMMARY | 2025-02-12 08:31 | XMS_ITS | Clinical Summary ---
Author Organization [facility] Address [address] [place] [address] Care Team Providers Care County Health Officer Name Role Phone David Coppola MD Primary Care Provider +- [phone] David Coppola MD Unavailable [phone] David Coppola MD Unavailable [phone] Virginie Corea RN Unavailable [phone] Source Comments [facility],non-owned Affiliates and Associated Physician Practices is amultiple site organization consisting of ambulatory clinics and hospital sitesin [place], [place], [place] and [place]. This disclosure is being madepursuant to the Care Everywhere program and may not contain all information available regarding this patient. Last updated 18.[facility] Allergies Active Allergy Reactions Criticality Noted [...] vitamin D, ergocalciferol , (DRISDOL) 1.25 MG (26954 UT) capsule Take 1 (one) capsule by [...] included. Listing date: Not yet listed Referring Sleeper Cutter: Dr. Suarez Dialysis Type and Start Date: [...] lives with her Estela. She speaks fluent Bulgarian. She has 3 children who live in [place] and [facility]. Her support system is her and his [...] (Bezet) ms 462 ms Final Calculated R [place] degrees 82 degrees Final Calculated T axis degrees 53 degrees Final EKG Interp Final ATRIAL FIBRILLATION NONSPECIFIC ST ABNORMALITY , PROBABLY DIGITALIS EFFECT ABNORMAL ECG NO PREVIOUS ECGS AVAILABLE Confirmed by Fritz GANT, MIKE ([id number]), sound editor Joseph Ingram ([id number]) on 04/04/2018 1:32:49 PM Echo: 03/28/18 CONCLUSION: There is moderate concentric left ventricular hypertrophy. The left ventricular ejection fraction is estimated at 65 %. There are no regional wall motion abnormalities present. Estimated right ventricular systolic pressure is 39 mmHg. Severe biatrial enlargement Mild dilated proximal ascending aorta. DSE: n/a will need [facility] Cardiac Cath: Will need d/t length of [...] Completed at OSH on 03/20/18 Cardiac Catheterization03/20/2018 [facility] Result Narrative PERIPHERAL ANGIOGRAM AND INTERVENTION REPORT [...] groin hematoma, retroperitoneal bleed, vessel perforation; periprocedural [place], stroke, contrast induced nephropathy, and even . [...] artery access site 8. Moderate Sedation (CPT 81033) MODERATE SEDATION: Midazolam 2 mg , Fentanyl 50 mcg, start time 1157 stop time 1318, total direct [id number] monitoring of conscious sedation 81 minutes (CPT 97027) TRAINED OBSERVER: Mena Scruggs RN was trained office over for moderate sedation. ACCESS SITE: Right common femoral artery PROCEDURE: After obtaining informed consent, patient was brought to the laborer pipelines and prepped and draped in the usual sterile manner. After local anesthesia with lidocaine, right common femoral artery access was taken with micropuncture needle followed by insertion of a 5 Rwandan sheath over a 0.035 inch wire. Selective right common femoral angiogram with distal runoff was performed through the 5 Rwandan sheath. After this, a 5 Rwandan IM catheter was advanced in the distal abdominal aorta, distal abdominal aortogram with bilateral iliac runoff was performed. The same catheter was pointed towards the left common iliac artery, selective left common iliac angiogram with distal runoff was performed. During intervention, selective left common femoral angiogram and superficial femoral angiogram was performed using the long 6 Rwandan sheath. The angiographic findings and details of [...] intervention on the same vessel. The 5 Rwandan sheath was exchanged with a long 90 cm sheath over 035 glide wire. The tip of the long sheath was position in the proximal popliteal artery. Patient received heparin for procedural anticoagulation, ACT was monitored throughout the procedure. Patient also received aspirin loading dose of clopidogrel 600 mg in the laborer pipelines. The totally occluded, calcified left anterior tibial [...] received dental clearance PPD: Colonoscopy: Completed at [facility] 12/02/2015 Mammo: Pap: Dental: SW: 03/28/18 Clinical Social Work Impression: It is the impression of this aids social worker that Shasta Obando has several positive factors for Kidney transplant candidacy from a psychosocial perspective. Pt has a good understanding of her disease and motivation for kidney transplant. Pt appears to have adequate insurance and financial situation (children provide assistance as needed) for post transplant needs. Pt has identified adequate support system and appropriate discharge plan. No concerns regarding substance abuse identified. Plan: fabric worker fitter to provide supportive services as needed. No f/u indicated at this time.Patient appears to be a reasonable candidate for transplant from a psychosocial perspective. Post transplant arrangement forms are needed prior to being listed. Psychiatric Consult Recommended: No Transplant Neuropsychology Medical Consultant: Nicole Tomas LMSW RD: 03/28/18 BMI= 28.51, overweight - Pt is considered to be a good candidate for a Kidney Transplant from a Nutrition standpoint. Recommendations/Interventions: Pt instructed to continue to work with Renal RD at HD on diet and to be compliant. Lindsay Gardner Encounter for other preprocedural examination Overview (10/08/2017): Listing date: Not yet listed Referring Sleeper Cutter: Dr. Suarez Dialysis Type and Start Date: [...] lives with her Estela. She speaks fluent Bulgarian. She has 3 chilren who live in [place] and [facility]. Her support system is her and his [...] Transplant surgery appt: Consults: cardiology consult with [facility] Notes: Not yet presented Evaluation Testing Date and Results: Labs: PTH: A1c: Glucose: PSA: GFR: Serologies: CMV Igg: EBV Igg: Albumin: Tox Screen: PRA: Echo: DSE: Cardiac Cath: CXR: Pano: US: PPD: Negative at on 05/08/2016 Colonoscopy: Completed at [facility] 12/02/2015 Mammo: Pap: Dental: SW: RD: Abnormal finding on imaging 06/15/2015 Overview (06/15/2015): Filling defect on venography of central veins. Need to rule out aortic arch aneurysm. Complication of arteriovenous dialysis fistula PVD (peripheral vascular disease) Encounters Date Type Department Care Team Description 02/03/2025 Orders Only [facility] - GI [address] [facility], [place] [address] Avis Dumont, PHOTO TECH-PHYSICIAN SURGEON Hepatitis B core antibody positive 11/26/2024 Travel from Last 3 Months Immunizations Immunization Administration Dates Next Due Covid Moderna primary monova lent 12+ yr 0.5mL 11/04/2021,10/15/2020,09/17/2020 Family History Medical History Relation Name Comments [place] Brother 3 Heart Disease Father Hypertension Father [place] Father Hypertension Mother Relation Name Status Comments [...] on file Legal Sex Female 5:40 PM HABITAT MANAGEMENT COORDINATOR Gender Identity Not on file Sexual [...] Info) Description 03/10/2025 11:00 AM CDT Appointment [facility] Health Vascular Services [address] [facility], [address] [place] [address] [place] [address] [facility] [address] [place] [phone] [place] [address] [facility] [address] [place] [phone] Cristo Fontenot MD [address] [place] [address] 03/17/2025 1:00 PM CDT Procedure visit [facility] - GI [address] [place] [phone] 03/17/2025 1:30 PM CDT Office Visit [facility] - GI [address] [place] [phone] Avis Dumont, PHOTO TECH-PHYSICIAN SURGEON [address] [place] [address] [place] [address] Health Maintenance Due Date Last Done Comments BONE DENSITY TESTING 1945 DTAP/TDAP/TD VACCINES (1 - Tdap) 1965 PNEUMOCOCCAL VACCINE 50+ (1 of 2 - PCV) 1965 HEPATITIS B VACCINE (1 of 3 - Risk Dialysis 4-dose series) 1966 ZOSTER VACCINE (1 of 2) 1996 Respiratory Syncytial Virus (RSV) Vaccine Pt: or over 60 yrs (1 - 1-dose 75+ series) 2021 COVID-19 VACCINE (4 - season) 2024 11/04/2021, 10/15/2020, 09/17/2020 DEPRESSION [...] this topic Medical Devices Implanted Type Area Regional Planner Device Identifier Shelf Expiration Date Model / Serial / Lot Duraflow 2 Hemodialysis Catheter Implanted:Qty: 1 on 02/22/2015 by David Buitrago MD at [facility] Right: Chest 06/07/2017 [id number] / / [id number] [employer] Acuseal Vascular Graft Implanted:Qty: 1 on 04/02/2018 by David Buitrago MD at [facility] Left: Arm 10/29/2020 [id number] / / [id number] Procedures Procedure Name Priority Date/Time Associated Diagnosis Comments CARDIAC RHYTHM STRIP ORDER 11/13/2024 7:39 PM CDT HEPATITIS C ANTIBODY Routine 03/28/2018 1:53 PM [...] CARDIAC SERVICES ORDERABLES Fin al Result * HEPATITIS C ANTIBODY (03/28/2018 1:53 PM CDT) Hepatitis C Antibody Non-react glen Non-reac tive 03/28/2018 2:50 PM CDT [facility] Comment: Hepatitis C Antibody [...] - CHEMISTRY ORDERABLES Fi nal Result [address] [phone] from Last 3 Months or Most Recently Relevant to Health Maintenance Insurance MEDICAID [place] [employer] MANAGED MEDICARE ADV MEDICAID - OUT OF STATE Advance Directives Documents on File Type Date Recorded Patient Enrollment Management Director Expl anation Adv Directive/Living Will/POA 09/18/2017 * Full Code (Latest Code Status on File) Date Activated Date Inactivated Comments 02/22/2015 4:27 PM 02/23/2015 5:53 PM Care Teams County Health Officer Relationship Specialty Start Date End Date David Coppola MD [address] [place] [phone] PCP - General 08/15/16 David Coppola MD [address] [place] [phone] Family Medicine 02/08/15 David Coppola MD [address] [place] [phone] Family Medicine 08/15/16 Virginie Corea, RN Eap Consultant 02/23/15
--- OUTSIDE RECORDS SUMMARY | 2025-02-12 08:31 | XMS_ITS | Clinical Summary ---
Author Organization [facility] Address [address] [place] [phone] Phone Care Team Providers Care Customer Marketing Assistant Name Role Phone Unavailable Primary Care Provider Unavailabl e Medications imipramine (TOFRANIL) 25 MG tablet 0 03/04/2014 Active pioglitazone (ACTOS) 15 MG tablet 03/04/2014 Active amLODIPine (NORVASC) 5 MG tablet 03/04/2014 Active aspirin (ASPIR-LOW) 81 MG EC tablet 03/04/2014 Active lovastatin (MEVACOR) 20 MG tablet 03/04/2014 Active ergocalciferol (VITAMIN D-2) 92800 units capsule 1 weekly 03/04/2014 Active lisinopril (PRINIVIL,ZESTR IL) 20 MG tablet 1 daily 12 08/23/2017 Active diclofenac (VOLTAREN) 1 % topical gel 03/04/2014 Active omega-3 (FISH OIL) 1000 MG capsule 03/04/2014 Active clotrimazole (LOTRIMIN) 1 % cream 03/04/2014 Active ferrous sulfate 325 (65 Fe) MG tablet 03/04/2014 Active carvedilol (COREG) 3.125 MG tablet 1 ibid 12 07/17/2017 Active Methylcobalamin (E63-RLGZSZ) 1 MG chewable tablet half tab daily [...] Comments Blood Pressure 119/62 09/11/2018 12:01 AM FLOW WORKER Pulse 72 02/01/2015 12:01 AM CDT Temperature 36.8 C (98.3 F) 02/01/2015 12:01 AM CDT Respiratory Rate - - Oxygen Saturation - - Inhaled Oxygen Concentration - - Weight 63.5 kg (140 lb) 09/11/2018 12:01 AM FLOW WORKER Height 149.9 cm (4' 11) 09/11/2018 12:01 AM FLOW WORKER Body Mass Index 28.28 09/11/2018 12:01 AM FLOW WORKER Plan of Treatment Health Maintenance Due Date Last Done Comments Pneumococcal PPSV23/PCV13 65 + Years / Low and Medium Risk (1 of 2 - PCV) 1996 Influenza Vaccine (#1) 2025
--- OUTSIDE RECORDS SUMMARY | 2025-02-12 08:31 | XMS_ITS | Encounter Summary ---
Author Organization [facility] Address [address] [facility] [place] [address] Care Team Providers Care Supervisor Cd Area Name Role Phone David Coppola MD Primary Care Provider + [phone] David Coppola MD Unavailable [phone] David Coppola MD Unavailable [phone] Virginie Corea RN Unavailable [phone] Encounter Details Date Type Department Care Team (Late st Contact Info) Description 03/19/2023 Telephone [facility] . Wound Care [id number] [facility] , [address] [phone] Lima Martins Social History Tobacco Use Types Packs/Day Years Used Date Smoking Tobacco: Never Smokeless Tobacco: Never Alcohol Use Standard Drinks/Week Comments No 0 (1 standard drink = 0.6 oz pur e alcohol) Comments No Sex and Gender Information Value Date Recorded Sex Assigned at Not on file Legal Sex Female 5:40 PM CERTIFIED PHYSICIAN'S ASSISTANT Gender Identity Not on file Sexual Orientation [...] Info) Description 03/10/2025 11:00 AM CDT Appointment [facility] Vascular Services [address] [facility], [address] [place], [place] [phone] [place] [address] [facility] [address] [place] [phone] [place] [address] [facility] [address] [place] [phone] Cristo Fontenot MD [address] [place] [address] 03/17/2025 1:00 PM CDT Procedure visit [facility] - GI [address] [place] [phone] 03/17/2025 1:30 PM CDT Office Visit [facility] - GI [address] [place] [phone] Avis Dumont, PLANT OPERATOR-GOLF CADDIE [address] [place] [address] documented as of this encounter Visit Diagnoses Not on filedocumented in this encounter Care Teams Supervisor Cd Area Relationship Specialty Start Date End Date David Coppola MD [address] [place] [phone] PCP - General 08/15/16 David Coppola MD [address] [place] [phone] Family Medicine 02/08/15 David Coppola MD [address] [place] [phone] Family Medicine 08/15/16 Virginie Corea, ABENA Biological Plant Operator 02/23/15 documented as of this encounter
--- OUTSIDE RECORDS SUMMARY | 2025-02-12 08:31 | XMS_ITS | Clinical Summary ---
Author Organization [facility] Address [address] [place] [address] Phone Care Team Providers Care Pulp Making Plant Operator Name Role Phone David Coppola MD Primary Care Provider [phone] Allergies Active Allergy Reactions Criticality Noted Date [...] 1 Tablet by mouth daily. Active B Ihyphfi-H-Mqikp Acid (Triphrocaps) 1 MG Capsule Take 1 Capsule by mouth daily. Active ergocalciferol (VITAMIN D) 62228 UNIT Capsule Take 1 Capsule by mouth [...] 12 units Indications: Type 2 Diabetes Active [place]-3 Fatty Acids (FISH OIL PO) Take 1 Capsule by mouth daily. Active lisinopril (PRINIVIL, ZESTRIL) 10 MG Tablet Take 1 Tablet by mouth daily. 025 Discontin ued(Med List Clean Up) Encounters Date Type Department Care Team Description 01/22/2025 2:00 PM CDT Home Care Visit [address] [address] Manuela Martin RN SN - OASIS DISCHARGE 01/15/2025 2:00 PM CDT Home Care Visit [address] [address] Manuela Martin RN SN - PRIORITY VISIT 01/13/2025 Home Care Visit [address] [address] Lindsay Boyd RN CARE CONFERENCE 01/07/2025 Home Care Visit [address] [address] Mendy Kenny, ABENA CASE COMMUNICATION 01/06/2025 9:00 AM CDT Home Care Visit [address] [address] Manuela Martin RN SN - WOUND VISIT 01/06/2025 Home Care Visit [address] [address] Mendy Kenny, ABENA TELEPHONE ENCOUNTER 01/06/2025 Home Care Visit [address] [address] Lindsay Boyd, RN CARE CONFERENCE 01/02/2025 Home Care Visit [address] [address] Claudia Aviles OT OT - DISCHARGE SUMMARY 01/01/2025 2:00 PM CDT Home Care Visit [address] [address] Mendy Kenny, ABENA SN - PRIORITY VISIT 12/26/2024 9:00 AM CDT Home Care Visit [address] [address] Gillian June, PT PT - DISCIPLINE DISCHARGE 12/26/2024 Travel 12/25/2024 2:30 PM CDT Home Care Visit [address] [address] Adele Fang OTA OT - DISCIPLINE DISCHARGE 12/25/2024 2:00 PM CDT Home Care Visit [address] [address] Manuela Martin RN SN - PRIORITY VISIT 12/25/2024 Home Care Visit [address] [address] Adele Fang OTA CASE COMMUNICATION 12/22/2024 9:30 AM CDT Home Care Visit [address] [address] Joann Hudson, FRAME EXPANDER PT - HOME VISIT 12/18/2024 4:00 PM CDT Home Care Visit [address] [address] Manuela Martin, RN SN - PRIORITY VISIT 12/18/2024 2:30 PM CDT Home Care Visit [address] [address] Adele Fang, ROSALIO OT - HOME VISIT 12/18/2024 2:30 PM CDT Home Care Visit [address] [address] Joann Hudsno, FRAME EXPANDER PT - HOME VISIT 12/17/2024 Home Care Visit [address] [address] Gillian June, PT CASE COMMUNICATION 12/16/2024 12:30 PM CDT Home Care Visit [address] [address] Adele Fang, ROSALIO OT - HOME VISIT 12/16/2024 9:30 AM CDT Home Care Visit [address] [address] Gillian June, PT PT - REASSESSMENT 12/16/2024 Travel 12/15/2024 Home Care Visit [address] [address] Mendy Kenny RN TELEPHONE ENCOUNTER 12/12/2024 10:00 AM CDT Home Care Visit [address] [address] Mendy Kenny RN SN - PRIORITY VISIT 12/11/2024 2:30 PM CDT Home Care Visit [address] [address] Joann Hudson, FRAME EXPANDER PT - HOME VISIT 12/11/2024 2:00 PM CDT Home Care Visit [address] [address] Adele Fang, ROSALIO OT - HOME VISIT 12/09/2024 2:30 PM CDT Home Care Visit [address] [address] Joann Hudson, FRAME EXPANDER PT - HOME VISIT 12/07/2024 Home Care Visit [address] [address] Lindsay Boyd RN CARE CONFERENCE 12/02/2024 3:30 PM CDT Home Care Visit [address] [address] Mendy Kenny, ABENA SN - PRIORITY VISIT 11/29/2024 Home Care Visit [address] [address] Lindsay Boyd, RN TELEPHONE ENCOUNTER 11/28/2024 9:00 AM CDT Home Care Visit [address] [address] Gillian June, PT PT - INITIAL EVALUATION 11/28/2024 Travel 11/27/2024 5:00 PM CDT Home Care Visit [address] [address] Claudia Aviles OT OT - INITIAL EVALUATION 11/27/2024 1:30 PM CDT Home Care Visit [address] [address] Lindsay Boyd RN SN - OASIS START OF CARE 11/27/2024 Plan of Care Documentation [address] [address] from Last 3 Months Social History Tobacco Use Types Packs/Day Years Used Date Smoking Tobacco: Never Smokeless Tobacco: Never Comments No Sex and Gender Information Value Date Recorded Sex Assigned at Not on file Legal Sex Female 3:43 PM COCOA PRESS OPERATOR Gender Identity Not on file Sexual [...] to complete this topic [facility] Advance Directives * Full Code (Latest Code Status on File) Date Activated Date Inactivated Comments 12/04/2024 3:52 PM Care Teams Pulp Making Plant Operator Relationship Specialty Start Date End Date David Coppola MD [facility] [address] PCP - General Family Medicine 11/22/24
--- OUTSIDE RECORDS SUMMARY | 2025-02-12 08:31 | XMS_ITS | Encounter Summary ---
Author Organization [facility] Healthcare Address [address] [place] [address] Care Team Providers Care Counselor/Art Therapist Name Role Phone David Coppola MD Primary Care Provider [phone] Jacob Suarez MD Unavailable [phone] Marnie Lara RN Unavailable Ros Seay MD Unavailable [phone] Johana Edmond RN Unavailable Abdifatah Villa MD Unavailable Issa Clements MD Unavailable [phone] Encounter Details Date Type Department Care Team (Late st Contact Info) Description 12/11/2018 Orders Only [facility] Health Information Management [address] [place] [address] Scanning, Provider Social History Tobacco Use Types Packs/Day Years Used Date Smoking Tobacco: Never Smokeless Tobacco: Never Alcohol Use Standard Drinks/Week Comments No 0 (1 standard drink = 0.6 oz pur e alcohol) Comments No Sex and Gender Information Value Date Recorded Sex Assigned at Not on file Legal Sex Female 12:39 PM SATURATOR TENDER Gender Identity Not on file Sexual Orientation [...] Influenza, adult 09/04/2019 09/04/2019 09/11/2019 3:05 AM SATURATOR TENDER Abscess/Wound/Cellulitis 10/16/2019 10/16/2019 3:05 AM CDT documented as of this encounter Care Teams Counselor/Art Therapist Relationship Specialty Start Date End Date David Coppola MD PCP - General Family Medicine 10/29/17 Jacob Suarez MD Referring Physician Nephrology 12/20/18 Manrie Lara RN Registered Nurse Mechanical Design Drafter 12/20/1809/03 Ros Seay MD Mold Breaker Cardiology 03/05/19 Johana Edmond, RN [address] [facility] [address] [place] [address] Mechanical Design Drafter 08/21/19 Abdifatah Villa MD [address] [facility] [address] [place] [address] Consulting Physician Cardiology 09/01/20 Issa Clements MD [address] [facility] [address] [place] [address] Referring Physician General Surgery 09/01/20 documented as of this encounter
--- OUTSIDE RECORDS SUMMARY | 2025-02-12 08:31 | XMS_ITS | Encounter Summary ---
Author Organization [facility] Healthcare Address [address] [place] [address] Care Team Providers Care Toll Transmission Worker Name Role Phone David Coppola MD Primary Care Provider [phone] Jacob Suarez MD Unavailable [phone] Ros Seay MD Unavailable [phone] Abdifatah Villa MD Unavailable Issa Clements MD Unavailable [phone] Encounter Details Date Type Department Care Team (Late st Contact Info) Description 11/19/2024 Telephone [facility] Radiology [address] [place] [address] Yaritza Golden RN Social History Tobacco Use [...] often do you attend chur ch or hoahaoism services? 1 to 4 times per year 09/04/2019 Do you belong to any clubs o r organizations such as holiness groups, unions, fraternal or athletic groups, or [...] on file Legal Sex Female 12:39 PM STAFF MIDWIFE/APPRENTICESHIP DIRECTOR Gender Identity Not on file Sexual Orientation Not on file documented as of this encounter Plan of Treatment Scheduled Procedures Name Priority Associated Diagnoses Date/Ti me TRANSPLANT KIDNEY ESRD (end stage renal disease) (HCC) documented as of this encounter Visit Diagnoses Not on filedocumented in this encounter Care Teams Toll Transmission Worker Relationship Specialty Start Date End Date David Coppola MD PCP - General Family Medicine 10/29/17 Jacob Suarez MD Referring Physician Nephrology 12/20/18 Ros Seay MD Dentist Cardiology 03/05/19 Abdifatah Villa MD [address] [facility] [address] [place] [address] Consulting Physician Cardiology 09/01/20 Issa Clements MD [address] [facility] [address] [place] [address] Referring Physician General Surgery 09/01/20 documented as of this encounter
[2025-02-12 08:41] LABS: INR 1.1; Prothrombin Time 13.7 Seconds (11.1-14.7)
[2025-02-12 08:42] LABS: Partial Thromboplastin Time 30.5 Seconds (22.3-36.8)
[2025-02-12 08:55] LABS: Alanine Aminotransferase 32 U/L (6-35); Albumin Level 4.1 g/dL (3.5-5.1); Alkaline Phosphatase 152 U/L (38-126); Anion Gap 12 mmol/L (4-12); Aspartate Amino Transferase 65 U/L (14-36); Bilirubin,Total 0.8 mg/dL (0.2-1.3); Blood Urea Nitrogen 71 mg/dL (7-17); Calcium 12.6 mg/dL (8.4-10.2); Carbon Dioxide 33 mmol/L (22-30); Chloride 91 mmol/L (98-107); Estimated Glomerular Filt Rate 6; Glucose 185 mg/dL (65-110); Potassium 5.0 mmol/L (3.4-5.0); Sodium 136 mmol/L (137-145); Total Protein 6.7 g/dL (6.3-8.2)
[2025-02-12 08:57] LABS: NT Pro B Type Natriuretic Pept > 30000 pg/mL (19.9-100)
--- NOTE | 2025-02-12 09:09 | ED.GENADULT ---
HPI - General Adult General Chief complaint: Unspecified Stated complaint: pain all over Time Seen by Provider: 02/12/25 07:57 History of Present Illness HPI narrative: Patient is a 79-year-old female who presents ER with body aches. Was seen in the ER yesterday and found to have a critically elevated calcium level. She left against medical advice and attempted to go to dialysis which she missed yesterday. They were closed so she went home. She realizes there for ways in his returned after developing the new body aches. No chest pain or chest pressure. Patient is also newly hypoxic and requiring couple Liters of oxygen. She reports some exertional dyspnea. No fever or cough. Related Data Home Medications ?Medication ?Instructions ?Recorded ?Confirmed ?Last Taken ?Type acetaminophen 500 mg tablet See Rx Instructions PO Q4H PRN Pain 02/20/20 02/12/25 06/05/23 History (Acetaminophen Extra Strength) atorvastatin 40 mg tablet 40 mg PO DAILY 10/25/21 02/12/25 12/03/24 History vitamin B complex and vitamin C 1 cap PO DAILY 10/25/21 02/12/25 12/03/24 History no.20-folic acid 1 mg capsule (Renal Caps) liraglutide 0.6 mg/0.1 mL (18 mg/3 1.2 mg subcut HS 06/06/23 02/12/25 12/03/24 History mL) subcutaneous pen injector (Victoza 2-Agustín) clotrimazole 1 % topical cream 1 applic topical Q12H 09/27/23 02/12/25 12/03/24 History (Antifungal (clotrimazole)) biotin 5 mg capsule 5 mg PO DAILY 10/08/24 02/12/25 12/03/24 History diclofenac sodium 1 % topical gel 2 g topical QID PRN discomfort 02/12/25 02/12/25 Unknown History (Arthritis Pain (diclofenac)) Allergies Allergy/AdvReac Type Severity Reaction Status Date / Time cephalexin Allergy Mild Rash Verified 02/11/25 13:22 enalapril Allergy Unknown cough Verified 02/11/25 13:22 pioglitazone Allergy Unknown Unknown Verified 02/11/25 13:22 cefazolin AdvReac Mild nausea/dizz Verified 02/11/25 13:22 iness tramadol AdvReac Unknown hallucinati Verified 02/11/25 13:22 ons gabapentin AdvReac Hallucinati Verified 02/11/25 13:22 ng Review of Systems Review of Systems: All systems reviewed & are unremarkable except as noted in HPI and below Constitutional: Constitutional: Reports no additional constitutional complaints Cardiovascular: Cardiovascular: Reports no additional cardiovascular complaints Respiratory: Respiratory: Reports no additional respiratory complaints Gastrointestinal: Gastrointestinal: Reports no additional gastrointestinal complaints Genitourinary: Genitourinary: Reports no additional female genitourinary complaints [facility] Past Medical History Medical History 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 Spinal stenosis at L4-L5 level High-grade central canal stenosis noted on MRI February 2017 Pulmonary hypertension Echocardiogram August 2019: EF 65-70 %, indeterminate left ventricular diastolic function, mild biatrial enlargement, mild mitral valve regurgitation, moderate tricuspid regurgitation, mild pulmonary hypertension with RVSP of 39 Hiatal hernia Thoracic ascending aortic aneurysm 4.[address] scan from August 2019 Anemia of chronic disease Megaloblastic anemia Paroxysmal atrial fibrillation Type 2 diabetes mellitus Hemoglobin A1c was 6.6 in July 2019. Hypertension Osteoporosis Hyperlipidemia AV fistula Left upper extremity End stage renal disease on dialysis Dialysis days are Sunday, Sunday, and Sunday. She is on the transplant list at [place]. Osteoarthritis of both knees Staphylococcal septicemia (~2013) Closed fracture of lateral portion of right tibial plateau (~2014) Surgical History Surgical History Amputated toe of left foot History of bilateral cataract extraction Amputation at midfoot 5th digit right footAnd the great toe on the left History of arthroplasty of right ankle Presence of Watchman left atrial appendage closure device History of arthroscopy (~12/07/12) wrist History of colonoscopy (~12/02/15) History of knee replacement (~2015) right Family History Family History Father Hypertension Heart disease Mother Diabetes mellitus Hypertension Tobacco dependence Lung cancer Sibling Heart disease Social History Social History Social History: The patient is and lives in [place]. She is originally from [place]. 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 She has 2 daughters who live in [place]. She has 1 son who lives in [facility] . She designates her daughters as her surrogate decision makers. She is a lifelong nonsmoker. No alcohol or drug abuse. Primary care physician: Dr. David Coppola Code status: Full code Smoking status: Never smoker Second hand tobacco smoke exposure: No Alcohol intake: never Substance use: never Substance use type: does not use Do You Feel Safe in your Home?: Yes Lack of Transportation: No Lack of Food: Never True Current Housing: I Have Housing Concerned About Future Housing: No Difficulty Paying Gas/Electric Bills: No Difficulty Paying for Meds: No Currently Unemployed: No Education: High School Diploma/GED Difficulty w/ Childcare or Family Care: No Gender identity (if verbalized by the patient): Female Spiritual care concerns: No Agree to blood products: Yes Exam Narrative: GENERAL: Ill-appearing, well-nourished, and in no acute distress. HEAD: Normocephalic, atraumatic. ENT: Mucous membranes moist. CHEST: Clear to auscultation. No respiratory distress. HEART: Irregularly irregular rate and rhythm. Normal peripheral pulses. ABDOMEN: Soft, nontender, nondistended. EXTREMITIES: Normal range of motion. No edema. SKIN: Warm, dry, no rash. NEURO: Alert and oriented x3. PSYCH: Normal mood and affect. Course Course Emergency Course: Nephrology consulted. Admit to hospitalist service. Will give dialysis. Vital Signs Vital signs: Vital Signs Temperature 97.5 F L 02/12/25 08:00 Pulse Rate 89 02/12/25 08:00 Respiratory Rate 20 02/12/25 08:00 Blood Pressure 155/80 H 02/12/25 08:00 Pulse Oximetry 98 02/12/25 08:00 Oxygen Delivery Room Air 02/12/25 08:00 Temperature 97.9 F 02/12/25 15:12 Pulse Rate 60 02/12/25 16:15 Respiratory Rate 16 02/12/25 16:15 Blood Pressure 140/53 L 02/12/25 15:12 Pulse Oximetry 95 02/12/25 16:15 Oxygen Delivery Nasal Cannula 02/12/25 16:15 Oxygen Flow Rate 2 02/12/25 16:15 Medical Decision Making Vital Signs Vital Signs: Vital Signs Temperature 97.5 F L 02/12/25 08:00 Pulse Rate 89 02/12/25 08:00 Respiratory Rate 20 02/12/25 08:00 Blood Pressure 155/80 H 02/12/25 08:00 Pulse Oximetry 98 02/12/25 08:00 Oxygen Delivery Room Air 02/12/25 08:00 Temperature 97.9 F 02/12/25 15:12 Pulse Rate 60 02/12/25 16:15 Respiratory Rate 16 02/12/25 16:15 Blood Pressure 140/53 L 02/12/25 15:12 Pulse Oximetry 95 02/12/25 16:15 Oxygen Delivery Nasal Cannula 02/12/25 16:15 Oxygen Flow Rate 2 02/12/25 16:15 Lab Data 02/12/25 08:18 02/12/25 08:18 Labs: Lab Results 02/12/25 Range/Units 08:18 WBC 8.8 (4.5-10.0) K/mm3 RBC 3.77 L (4.2-5.4) M/mm3 Hgb 11.7 L (12.0-15.0) g/dL Hct 38.0 (37.0-47.0) % MCV 100.8 H (80-100) fl MCH 31.0 (26-34) pg MCHC 30.8 L (32-36) g/dl RDW 14.6 H (11.5-14.5) % Plt Count 132 L (150-375) k/mm3 MPV 11.6 H (7.4-10.4) fl Immature Gran % (Auto) 0.5 (0-0.5) % Neut % (Auto) 76.0 H (45.5-73.1) % Lymph % (Auto) 11.2 L (18.3-44.2) % Will % (Auto) 11.2 H (2.6-8.5) % Eos % (Auto) 0.8 (0-4.4) % Baso % (Auto) 0.3 (0.2-1.2) % Lymph # (Auto) 0.99 (0.9-3.2) K/mm3 Will # (Auto) 1.0 H (0.1-0.6) K/mm3 Eos # (Auto) 0.1 (0-0.3) K/mm3 Baso # (Auto) 0.0 (0.0-0.1) K/mm3 Abs Immat Gran (auto) 0.04 H (0.00-0.031) K/mm3 Absolute Neuts (auto) 6.7 (1.3-6.7) K/mm3 Absolute Nucleated RBC 0.000 (0.0-0.012) K/mm3 Nucleated RBC % 0.0 (0.0-0.2) % PT 13.7 (11.1-14.7) Seconds INR 1.1 APTT 30.5 (22.3-36.8) Seconds Sodium 136 L (137-145) mmol/L Potassium 5.0 (3.4-5.0) mmol/L Chloride 91 L (98-107) mmol/L Carbon Dioxide 33 H (22-30) mmol/L Anion Gap 12 (4-12) mmol/L BUN 71 H D (7-17) mg/dL Creatinine 6.47 H (0.7-1.0) mg/dL Estim Creat Clear Calc Not Reportable Estimated GFR 6 L (59 - ) Glucose 185 H (65-110) mg/dL Calcium 12.6 H* (8.4-10.2) mg/dL Ionized Calcium Pending Total Bilirubin 0.8 (0.2-1.3) mg/dL AST 65 H (14-36) U/L ALT 32 (6-35) U/L Alkaline Phosphatase 152 H (38-126) U/L NT-Pro-B Natriuret Pep > 16858 H (19.9-100) pg/mL Total Protein 6.7 (6.3-8.2) g/dL Albumin 4.1 (3.5-5.1) g/dL PTH Related Peptide Pending Hep Bs Antigen Negative (Negative) Hep Bs Antibody Negative Imaging Data Radiologist's impression: ITS Impressions Chest X-Ray 02/12/25 08:55 Impression: 1: Cardiomegaly with persistent mild interstitial edema. ECG Data EKG #1: ECG completion date: 02/12/25 ECG completion time: 08:11 EKG Interpretation: normal rate (72), atrial fibrillation, non-specific ST changes, normal QRS and right axis Discharge Plan Discharge Clinical Impression: Hypercalcemia, Hypoxia, Pulmonary edema Patient Disposition: Still a Patient Condition: Stable
[2025-02-12 10:51] LABS: Hepatitis B Surface Antigen Negative (Negative)
--- NOTE | 2025-02-12 11:00 | PC.NURSE ---
report obtained from ED RN at 1100, pt will be going directly to dialysis from ED
[2025-02-12 11:09] LABS: Hepatitis B Surface Anti Res Negative
--- NOTE | 2025-02-12 12:35 | P.CONNP_ITS ---
Assessment and Plan Assessment and plan (1) End stage renal disease: Code(s): N18.6 - End stage renal disease Status: Chronic Assessment and Plan: * plan HD today (since missed HD treatment yesterday) * HD tomorrow * continue M/W/F dialysis schedule while hospitalized * follow electrolytes, volume status, and clearance (2) Acute hypoxic respiratory failure: Code(s): J96.01 - Acute respiratory failure with hypoxia Status: Acute Assessment and Plan: * as noted by ER * improved with 2L oxygen by nasal cannula * presumably due to mild pulmonary edema on CXR * fluid removal with HD today and tomorrow * check viral panel * wean supplemental oxygen as tolerated (3) Cellulitis of right foot: Code(s): L03.115 - Cellulitis of right lower limb Status: Acute Assessment and Plan: * suspected by exam * noted erythema along with right heel ulcer * follow culture data * on antibiotics (4) Hypercalcemia: Code(s): E83.52 - Hypercalcemia Status: Acute Assessment and Plan: * as noted by labs yesterday and today in ER * surprising since she is on Sensipar and Prolia (as an outpatient) * outpatient dialysis labs do note her calcium levels at 10.9 in January 2025 * checking PTHrp, ALEJANDRINA level, Vitamin A, PTH, Vitamin D (25-OH and 1,25) * dialysis should help improve to some degree * consider bone scan if remains elevated * previous imaging (CT scans) are noteworthy for osteopenia and increase bone sclerosis c/w renal osteodystrophy (5) Atrial fibrillation: Qualifiers: Atrial fibrillation type: unspecified Qualified Code(s): I48.91 - Unspecified atrial fibrillation Code(s): I48.91 - Unspecified atrial fibrillation Status: Chronic Assessment and Plan: * paroxysmal * rate controlled * not on anticoagulation (due to hx of GI bleeding versus fall risk?) (6) Hypertension: Qualifiers: Hypertension type: unspecified Qualified Code(s): I10 - Essential (primary) hypertension Code(s): I10 - Essential (primary) hypertension Status: Chronic Assessment and Plan: * reasonable control * follow hemodynamics (7) Anemia: Qualifiers: Anemia type: unspecified type Qualified Code(s): D64.9 - Anemia, unspecified Code(s): D64.9 - Anemia, unspecified Status: Chronic Assessment and Plan: * related to ESRD * H/H at goal * hold Epogen with HD * follow trend of H/H (8) Type 2 diabetes mellitus: Qualifiers: Diabetes mellitus complication status: without complication 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 Thank you for allowing me to participate in the care of this patient. L History of Present Illness Reason for Consult Consult date: 02/12/25 Reason for consult: end stage renal disease Chief Complaint Chief complaint: Hypercalcemia/Pulmonary Edema History of Present Illness Narrative: The patient is a 79-year-old female with a past medical history as outlined below who presented to [facility] Emergency room via EMS from home due to profound body aches. The patient was actually seen in the emergency room yesterday for similar complaints in association reportedly frequent falls. Subsequent workup and evaluation at that time demonstrated labs consistent with her known history of end-stage renal disease but with significant hypercalcemia. It was recommended to the patient inpatient hospitalization for further evaluation and therapy but the patient did not want to be admitted to the hospital and signed out AMA. She subsequently returns to the ER earlier today the same complaints complicated by fact that she was unable to get her dialysis treatment yesterday due to her ER visit at that time. Workup and evaluation emergency room demonstrated the patient hemodynamically stable she was noted to be hypoxic and required 2 L oxygen by nasal cannula to improve her oxygen saturations. Routine labs were consistent with her known history of end-stage renal disease but once again her hypercalcemia was confirmed/ present with a value of 12.6 . Her CBC was unremarkable and a CT scan of her head demonstrated no acute pathology. Subsequent chest x-ray demonstrated cardiomegaly with persistent mild interstitial edema. Given her constellation of symptoms in conjunction with her labs/ imaging findings, the patient was admitted to the hospital for further evaluation therapy. Renal consultation was requested due to her end-stage renal disease. The patient normally dialyzes on a Sunday, Sunday, Sunday schedule under the care of Dr. Jacob Suarez at [facility]. From a dialysis perspective, she is compliant with her dialysis treatments and usually does not have any significant fluid gains in between her dialysis treatments. Her monthly labs are usually fairly stable as well. mentioned above, she missed her dialysis treatment yesterday due to her evaluation in the ER -- she attempted to go there after her ER visit yesterday but the clinic was already closed apparently. She had planned to go to her next scheduled HD treatment on Sunday prior to her presentation to the ER earlier today. Currently, at the time my visit, she has not appear to be any acute distress and is tolerating her dialysis treatment without issue (seen on HD at 12:25pm). Review of Systems 2 Review of Systems: As per HPI. 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 Spinal stenosis at L4-L5 level High-grade central canal stenosis noted on MRI February 2017 Pulmonary hypertension Echocardiogram August 2019: EF 65-70 %, indeterminate left ventricular diastolic function, mild biatrial enlargement, mild mitral valve regurgitation, moderate tricuspid regurgitation, mild pulmonary hypertension with RVSP of 39 Hiatal hernia Thoracic ascending aortic aneurysm 4.[address] scan from August 2019 Anemia of chronic disease Megaloblastic anemia Paroxysmal atrial fibrillation Type 2 diabetes mellitus Hemoglobin A1c was 6.6 in July 2019. Hypertension Osteoporosis Hyperlipidemia AV fistula Left upper extremity End stage renal disease on dialysis Dialysis days are Sunday, Sunday, and Sunday. She is on the transplant list at [place]. Osteoarthritis of both knees Staphylococcal septicemia (~2013) Closed fracture of lateral portion of right tibial plateau (~2014) Surgical History Surgical History Amputated toe of left foot History of bilateral cataract extraction Amputation at midfoot 5th digit right footAnd the great toe on the left History of arthroplasty of right ankle Presence of Watchman left atrial appendage closure device History of arthroscopy (~12/07/12) wrist History of colonoscopy (~12/02/15) History of knee replacement (~2015) right Family History Family History Father Hypertension Heart disease Mother Diabetes mellitus Hypertension Tobacco dependence Lung cancer Sibling Heart disease Social History Social History Social History: The patient is and lives in [place]. She is originally from [place]. 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 She has 2 daughters who live in [place]. She has 1 son who lives in [facility] . She designates her daughters as her surrogate decision makers. She is a lifelong nonsmoker. No alcohol or drug abuse. Primary care physician: Dr. David Coppola Code status: Full code Smoking status: Never smoker Second hand tobacco smoke exposure: No Alcohol intake: never Substance use: never Substance use type: does not use Do You Feel Safe in your Home?: Yes Lack of Transportation: No Lack of Food: Never True Current Housing: I Have Housing Concerned About Future Housing: No Difficulty Paying Gas/Electric Bills: No Difficulty Paying for Meds: No Currently Unemployed: No Education: High School Diploma/GED Difficulty w/ Childcare or Family Care: No Gender identity (if verbalized by the patient): Female Spiritual care concerns: No Agree to blood products: Yes Meds Home Medications and Allergies Home Medications ?Medication ?Instructions ?Recorded ?Confirmed ?Type acetaminophen 500 mg tablet See Rx Instructions PO Q4H PRN Pain 02/20/20 02/12/25 History (Acetaminophen Extra Strength) blood sugar diagnostic #500 ea 07/18/21 01/12/25 Rx atorvastatin 40 mg tablet 40 mg PO DAILY 10/25/21 02/12/25 History vitamin B complex and vitamin C 1 cap PO DAILY 10/25/21 02/12/25 History no.20-folic acid 1 mg capsule (Renal Caps) hortencia strickland #1 ea 01/11/23 01/12/25 Rx liraglutide 0.6 mg/0.1 mL (18 mg/3 1.2 mg subcut HS 06/06/23 02/12/25 History mL) subcutaneous pen injector (Victoza 2-Agustín) Assited gait device #1 ea 08/23/23 01/12/25 Rx clotrimazole 1 % topical cream 1 applic topical Q12H 09/27/23 02/12/25 History (Antifungal (clotrimazole)) dicyclomine 10 mg capsule See Rx Instructions .Route 02/12/24 02/12/25 Rx .COMPLEX #60 caps ergocalciferol (vitamin D2) 1,250 See Rx Instructions .Route 06/26/24 02/12/25 Rx mcg (50,000 unit) capsule .COMPLEX #13 caps sitagliptin phosphate 100 mg 100 mg PO DAILY #90 tabs 08/13/24 02/12/25 Rx tablet (Januvia) biotin 5 mg capsule 5 mg PO DAILY 10/08/24 02/12/25 History blood sugar diagnostic #500 ea 10/14/24 01/12/25 Rx tenofovir alafenamide 25 mg tablet 25 mg PO DAILY #90 tabs 10/16/24 02/12/25 Rx tobramycin 0.3 % eye drops 1 drp EACH EYE Q4H #5 mL 12/04/24 02/12/25 Rx trazodone 50 mg tablet 100 mg (2 x 50 mg) PO QHS #180 tabs 12/31/24 02/12/25 Rx rollator #1 ea 01/01/25 01/12/25 Rx denosumab 60 mg/mL subcutaneous 60 mg subcut [id number] #1 mL 01/05/25 02/12/25 Rx syringe (Prolia) pantoprazole 40 mg tablet,delayed 40 mg PO Q12HR #60 tabs 01/20/25 02/12/25 Rx release pen needle, diabetic 32 gauge x #100 ea 01/20/25 Rx 5/32 insulin degludec 100 unit/mL (3 10 unit (0.1 mL) subcut HS #15 mL 02/03/25 02/12/25 Rx mL) subcutaneous pen (Tresiba FlexTouch U-100 insulin) diclofenac sodium 1 % topical gel 2 g topical QID PRN discomfort 02/12/25 02/12/25 History (Arthritis Pain (diclofenac)) Allergies Allergy/AdvReac Type Severity Reaction Status Date / Time cephalexin Allergy Mild Rash Verified 02/11/25 13:22 enalapril Allergy Unknown cough Verified 02/11/25 13:22 pioglitazone Allergy Unknown Unknown Verified 02/11/25 13:22 cefazolin AdvReac Mild nausea/dizz Verified 02/11/25 13:22 iness tramadol AdvReac Unknown hallucinati Verified 02/11/25 13:22 ons gabapentin AdvReac Hallucinati Verified 02/11/25 13:22 ng Vital Signs Vital Signs Temp Pulse Resp BP Pulse Ox O2 Del Method O2 Flow Rate 02/12/25 12:34 46 L 98/31 L 02/12/25 12:15 54 L 98/40 L 02/12/25 12:00 52 L 108/44 L 02/12/25 11:45 47 L 107/40 L 02/12/25 11:25 52 L 131/53 L 02/12/25 11:15 3 02/12/25 11:15 97.9 F 60 18 154/62 H 100 02/12/25 10:46 97.4 F L 68 18 111/93 H 100 02/12/25 10:17 77 20 121/51 L 100 02/12/25 09:46 61 18 123/36 L 100 02/12/25 09:31 61 17 128/57 L 99 02/12/25 09:16 60 16 139/49 L 100 02/12/25 09:01 65 17 162/85 H 100 02/12/25 08:55 72 20 171/64 H 100 02/12/25 08:16 76 20 146/77 H 100 02/12/25 08:01 76 19 155/80 H 100 02/12/25 08:00 97.5 F L 89 20 155/80 H 98 Room Air Exam 2 Narrative: GENERAL APPEARANCE: elderly female in no acute distress HEENT: normocephalic, atraumatic, normal conjunctiva and sclera, nares patient NECK: no lymphadenopathy, thyromegaly, or JVD MOUTH: normal lips, teeth, and gums CARDIOVASCULAR: IRRR, normal S1 and S2, no rub RESPIRATORY: coarse with a few bibasilar crackles ABDOMEN: soft, nontender, nondistended, positive bowel sounds present EXTREMITIES: no evidence of cyanosis, clubbing, or edema NEUROLOGICAL: alert and oriented x 3; CN II - XII intact bilaterally; no focal deficits noted Results Lab Results 02/12/25 08:18 02/12/25 08:18 Lab results: Most recent lab results Calcium 12.6 mg/dL (8.4-10.2) H* 02/12/25 08:18
--- NOTE | 2025-02-12 14:07 | P.HP_ITS ---
H&P: HPI History of Present Illness Date/Time: 02/12/25 14:07 Chief Complaint: Fall and SOB Narrative: 79 yo female with PMH of Hepatitis B, GERD, IBS, PAD s/p stent, pulm hypertension, spinal stenosis, thoracic ascending aortic aneurysm, paroxysmal afib, HTN, HLD, ESRD who presented to the ER on account of fall adn SOB. [facility] after a fall and workup revealed hypercalcemia, Patient declined admission and was discharged home. patient noted she fell again at home which prompted this current presentation. Dhe denies any Vomiting, diarrhea, abd pain, chest pain, SOB, and no loss of consciousness. Denies any head trauma and no regional pain. Patient had a stent in her right LE and noted foot redness the past couple of days. ER eval notable for BP 156/70,on 2 liters oxygen. labs notable for Cr 6.47, BUN 71, Ca 12.6. 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 Spinal stenosis at L4-L5 level High-grade central canal stenosis noted on MRI February 2017 Pulmonary hypertension Echocardiogram August 2019: EF 65-70 %, indeterminate left ventricular diastolic function, mild biatrial enlargement, mild mitral valve regurgitation, moderate tricuspid regurgitation, mild pulmonary hypertension with RVSP of 39 Hiatal hernia Thoracic ascending aortic aneurysm 4.[address] scan from August 2019 Anemia of chronic disease Megaloblastic anemia Paroxysmal atrial fibrillation Type 2 diabetes mellitus Hemoglobin A1c was 6.6 in July 2019. Hypertension Osteoporosis Hyperlipidemia AV fistula Left upper extremity End stage renal disease on dialysis Dialysis days are Sunday, Sunday, and Sunday. She is on the transplant list at [place]. Osteoarthritis of both knees Staphylococcal septicemia (~2013) Closed fracture of lateral portion of right tibial plateau (~2014) Surgical History Surgical History Amputated toe of left foot History of bilateral cataract extraction Amputation at midfoot 5th digit right footAnd the great toe on the left History of arthroplasty of right ankle Presence of Watchman left atrial appendage closure device History of arthroscopy (~12/07/12) wrist History of colonoscopy (~12/02/15) History of knee replacement (~2015) right Family History Family History Father Hypertension Heart disease Mother Diabetes mellitus Hypertension Tobacco dependence Lung cancer Sibling Heart disease Social History Social History Social History: The patient is and lives in [place]. She is originally from [place]. 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 She has 2 daughters who live in [place]. She has 1 son who lives in [facility] . She designates her daughters as her surrogate decision makers. She is a lifelong nonsmoker. No alcohol or drug abuse. Primary care physician: Dr. David Coppola Code status: Full code Smoking status: Never smoker Second hand tobacco smoke exposure: No Alcohol intake: never Substance use: never Substance use type: does not use Do You Feel Safe in your Home?: Yes Lack of Transportation: No Lack of Food: Never True Current Housing: I Do Not Have Housing Concerned About Future Housing: No Difficulty Paying Gas/Electric Bills: No Difficulty Paying for Meds: No Currently Unemployed: No Education: High School Diploma/GED Difficulty w/ Childcare or Family Care: No Gender identity (if verbalized by the patient): Female Spiritual care concerns: No Agree to blood products: Yes Meds Home Medications and Allergies Home Medications ?Medication ?Instructions ?Recorded ?Confirmed ?Type acetaminophen 500 mg tablet See Rx Instructions PO Q4H PRN Pain 02/20/20 01/12/25 History (Acetaminophen Extra Strength) blood sugar diagnostic #500 ea 07/18/21 01/12/25 Rx atorvastatin 40 mg tablet 40 mg PO DAILY 10/25/21 01/12/25 History vitamin B complex and vitamin C 1 cap PO DAILY 10/25/21 01/12/25 History no.20-folic acid 1 mg capsule (Renal Caps) hortencia strickland #1 ea 01/11/23 01/12/25 Rx liraglutide 0.6 mg/0.1 mL (18 mg/3 1.2 mg subcut HS 06/06/23 01/12/25 History mL) subcutaneous pen injector (Victoza 2-Agustín) Assited gait device #1 ea 08/23/23 01/12/25 Rx clotrimazole 1 % topical cream 1 applic topical Q12H 09/27/23 01/12/25 History (Antifungal (clotrimazole)) lidocaine-prilocaine 2.5 %-2.5 % 1 applic topical ONCE 09/27/23 01/12/25 History topical cream dicyclomine 10 mg capsule See Rx Instructions .Route 02/12/24 01/12/25 Rx .COMPLEX #60 caps ergocalciferol (vitamin D2) 1,250 See Rx Instructions .Route 06/26/24 01/12/25 Rx mcg (50,000 unit) capsule .COMPLEX #13 caps sitagliptin phosphate 100 mg 100 mg PO DAILY #90 tabs 08/13/24 01/12/25 Rx tablet (Januvia) biotin 5 mg capsule 5 mg PO DAILY 10/08/24 01/12/25 History blood sugar diagnostic #500 ea 10/14/24 01/12/25 Rx lisinopril 10 mg tablet 10 mg PO DAILY 10/16/24 01/12/25 History tenofovir alafenamide 25 mg tablet 25 mg PO DAILY #90 tabs 10/16/24 01/12/25 Rx tobramycin 0.3 % eye drops 1 drp EACH EYE Q4H #5 mL 12/04/24 01/12/25 Rx omega 9-mat-vub-fish oil 1,000 mg 1 cap PO DAILY #90 caps 12/29/24 01/12/25 Rx (120 mg-180 mg) capsule (Fish Oil) trazodone 50 mg tablet 100 mg (2 x 50 mg) PO QHS #180 tabs 12/31/24 01/12/25 Rx omega 1-bmn-hzu-fish oil 60 mg-90 1 cap PO DAILY 01/01/25 01/12/25 History mg-500 mg capsule (Fish Oil) rollator #1 ea 01/01/25 01/12/25 Rx denosumab 60 mg/mL subcutaneous 60 mg subcut [id number] #1 mL 01/05/25 01/12/25 Rx syringe (Prolia) pantoprazole 40 mg tablet,delayed 40 mg PO Q12HR #60 tabs 01/20/25 Rx release pen needle, diabetic 32 gauge x #100 ea 01/20/25 Rx insulin degludec 100 unit/mL (3 10 unit (0.1 mL) subcut HS #15 mL 02/03/25 Rx mL) subcutaneous pen (Tresiba FlexTouch U-100 insulin) Allergies Allergy/AdvReac Type Severity Reaction Status Date / Time cephalexin Allergy Mild Rash Verified 02/11/25 13:22 enalapril Allergy Unknown cough Verified 02/11/25 13:22 pioglitazone Allergy Unknown Unknown Verified 02/11/25 13:22 cefazolin AdvReac Mild nausea/dizz Verified 02/11/25 13:22 iness tramadol AdvReac Unknown hallucinati Verified 02/11/25 13:22 ons gabapentin AdvReac Hallucinati Verified 02/11/25 13:22 ng Vital Signs Vital Signs - 24 hr 02/12/25 08:00 02/12/25 08:01 02/12/25 08:16 Temperature 97.5 F L Pulse Rate 89 76 76 Respiratory Rate 20 19 20 Blood Pressure 155/80 H 155/80 H 146/77 H Pulse Oximetry 98 100 100 Oxygen Delivery Room Air Oxygen Flow Rate 02/12/25 08:55 02/12/25 09:01 02/12/25 09:16 Temperature Pulse Rate 72 65 60 Respiratory Rate 20 17 16 Blood Pressure 171/64 H 162/85 H 139/49 L Pulse Oximetry 100 100 100 Oxygen Delivery Oxygen Flow Rate 02/12/25 09:31 02/12/25 09:46 02/12/25 10:17 Temperature Pulse Rate 61 61 77 Respiratory Rate 17 18 20 Blood Pressure 128/57 L 123/36 L 121/51 L Pulse Oximetry 99 100 100 Oxygen Delivery Oxygen Flow Rate 02/12/25 10:46 02/12/25 11:15 02/12/25 11:15 Temperature 97.4 F L 97.9 F Pulse Rate 68 60 Respiratory Rate 18 18 Blood Pressure 111/93 H 154/62 H Pulse Oximetry 100 100 Oxygen Delivery Oxygen Flow Rate 3 02/12/25 11:25 02/12/25 11:45 02/12/25 12:00 Temperature Pulse Rate 52 L 47 L 52 L Respiratory Rate Blood Pressure 131/53 L 107/40 L 108/44 L Pulse Oximetry Oxygen Delivery Oxygen Flow Rate 02/12/25 12:15 02/12/25 12:34 02/12/25 12:45 Temperature Pulse Rate 54 L 46 L 57 L Respiratory Rate Blood Pressure 98/40 L 98/31 L 118/45 L Pulse Oximetry Oxygen Delivery Oxygen Flow Rate 02/12/25 13:00 02/12/25 13:15 02/12/25 13:30 Temperature Pulse Rate 45 L 54 L 52 L Respiratory Rate Blood Pressure 100/43 L 92/32 L 90/37 L Pulse Oximetry Oxygen Delivery Oxygen Flow Rate 02/12/25 13:45 02/12/25 14:00 Temperature Pulse Rate 59 L 48 L Respiratory Rate Blood Pressure 94/43 L 117/48 L Pulse Oximetry Oxygen Delivery Oxygen Flow Rate Exam Narrative: General: alert and comfortable Eyes: EOMI, PERRLA ENNT External ears normal, Neck is supple, no masses, Respiratory systems: Clear to auscultation Cardiovascular S1, S2, normal rhythm, no murmur, rub, or gallop; no thrill or palpable murmurs on palpation. Gastrointestinal: soft, non-tender, and non-distended abdomen with no masses; BS present Skin: right foot erythema Musculoskeletal: no abnormality and no tenderness, normal ROM Neurologic: Alert and oriented x3, non focal Mental Status Exam: normal affect H&P: Results Labs Labs: Short CBC 02/12/25 Range/Units 08:18 WBC 8.8 (4.5-10.0) K/mm3 Hgb 11.7 L (12.0-15.0) g/dL Hct 38.0 (37.0-47.0) % Plt Count 132 L (150-375) k/mm3 [facility] 02/12/25 08:18 Sodium 136 L Potassium 5.0 Chloride 91 L Carbon Dioxide 33 H BUN 71 H D Creatinine 6.47 H Glucose 185 H Calcium 12.6 H* Liver Function 02/12/25 Range/Units 08:18 Total Bilirubin 0.8 (0.2-1.3) mg/dL AST 65 H (14-36) U/L ALT 32 (6-35) U/L Alkaline Phosphatase 152 H (38-126) U/L Albumin 4.1 (3.5-5.1) g/dL Assessment and Plan Assessment and plan (1) Acute respiratory failure with hypoxia and hypercapnia: Code(s): J96.01 - Acute respiratory failure with hypoxia; J96.02 - Acute respiratory failure with hypercapnia Status: Acute Plan ESRD needing dialysis Patient missed her dialysis yesterday BUN elevated Nephrology consulted for dialysis Fluid overload Acute hypoxemic respiratory failure Patient missed dialysis yesterday CXR showed pulm edema titrate oxygen and continue dialysis Hypercalcemia Ca 12.6 Vit D and PTH, CT chest and AP ordered continue dialysis and monitor right foot cellulitis Erythema on right foot with right heel ulcer Blood culture, On Levaquin and Flagyl wound care consulted Hepatitis B s/p treatment based on chart review PAD s/p stent continue home meds Paroxysmal afib Conitneu home meds, discuss anticoagulation chart review unclear if patient was taken off Anticoagulation HTN titrate with clinical course Thoracic aneurysm aorta monitor Pulm hypertension continue outpatient follow up Hepatitis B, GERD, IBS, PAD s/p stent, pulm hypertension, spinal stenosis, thoracic ascending aortic aneurysm, paroxysmal afib, HTN, HLD, ESRD Hospitalist MIPS Advance Care Plan I have confirmed that the patient's Advanced Care Plan is present, code status is documented, or surrogate decision maker is listed in patient medical record.: Yes Medication Reconciliation I have utilized all available resources to obtain, update and review the patients current medications (includes all prescriptions, OTC, herbals, cannabis, and nutritional supplements).: Yes
--- NOTE | 2025-02-12 15:35 | ADMGEN ---
This patient, Shasta Hendricks, was admitted to 3 [facility] Surg Room 332-02. Patient/family oriented to hospital policies and general routines including ID bracelet, bed and alarms, visiting hours, pain management, procedures, bathroom and other care routines, personal items, smoking policy, room service/diet, and visiting hours. Pt came directly from dialysis unit via bed Information on how to activate the Rapid Response Team has been discussed. Patient/Family are encouraged to report perceived risks to care and to ask questions if they do not understand what they are told or what they should do.
[2025-02-12] MEDS: metroNIDAZOLE 500 MG/ISO 100ML 500 MG/100 ML BAG 100 MG IVPB ×2 (15:46→22:10)
--- NOTE | 2025-02-12 15:57 | WNDPHOTO ---
PHOTO ONLY - See Nursing Notes and/ or assessments for documentation.
--- NOTE | 2025-02-12 16:02 | WNDPHOTO ---
PHOTO ONLY - See Nursing Notes and/ or assessments for documentation.
[2025-02-12] MEDS: levoFLOXacin 750 MG/D5W 150 ML 750 MG/150 ML BAG 100 MG IVPB (16:41)
[2025-02-12] MEDS: ACETAMINOPHEN 325 MG TABLET 650 MG PO (19:34)
[2025-02-12 19:40] LABS: Influenza A QL RT-PCR Negative (Negative); Influenza B QL RT-PCR Negative (Negative); RSV RNA, RT-PCR Negative (Negative); SARS-CoV-2 RNA PCR Negative (Negative)
[2025-02-12 20:12] LABS: MRSA (PCR) NOT DETECTED (NOT DETECTE)
[2025-02-12] MEDS: PANTOPRAZOLE 40 MG TABLET PO (22:10)
[2025-02-12] MEDS: INSULIN GLARGINE (*BKC) 100 UNITS/ML 7 UNITS SUB-Q (22:10)
[2025-02-13] VITALS (27 sets, daily range): BP systolic 100–155; BP diastolic 37–76; PULSE 57–87; RESP 16–18; TEMP 36.4–37.5; O2SAT 94–99
[2025-02-13] MEDS: metroNIDAZOLE 500 MG/ISO 100ML 500 MG/100 ML BAG 100 MG IVPB ×3 (05:29→21:42)
[2025-02-13] MEDS: ACETAMINOPHEN 325 MG TABLET 650 MG PO ×2 (05:29→10:54)
[2025-02-13 06:11] LABS: Hematocrit 33.4 % (37.0-47.0); Hemoglobin 9.5 g/dL (12.0-15.0); Immature Granulocyte Percent A 0.3 % (0-0.5); Lymphocytes Absolute Auto 1.00 K/mm3 (0.9-3.2); Mean Corpuscular HGB Conc 28.4 g/dl (32-36); Mean Corpuscular Hemoglobin 30.2 pg (26-34); Mean Corpuscular Volume 106.0 fl (80-100); Nucleated Red Blood Cells Absolute Auto 0.000 K/mm3 (0.0-0.012); Nucleated Red Blood Cells Perc 0.0 % (0.0-0.2); Platelet Count Result 114 k/mm3 (150-375); Red Blood Count 3.15 M/mm3 (4.2-5.4); White Blood Count 6.2 K/mm3 (4.5-10.0)
[2025-02-13 06:45] LABS: Macrocytosis 1+ (NORMAL); Schistocytes None Seen
[2025-02-13 06:47] LABS: Alanine Aminotransferase 24 U/L (6-35); Albumin Level 3.3 g/dL (3.5-5.1); Alkaline Phosphatase 104 U/L (38-126); Anion Gap 8 mmol/L (4-12); Aspartate Amino Transferase 43 U/L (14-36); Bilirubin,Total 0.6 mg/dL (0.2-1.3); Blood Urea Nitrogen 31 mg/dL (7-17); Calcium 9.5 mg/dL (8.4-10.2); Carbon Dioxide 29 mmol/L (22-30); Chloride 99 mmol/L (98-107); Estimated Glomerular Filt Rate 12; Glucose 125 mg/dL (65-110); Magnesium 2.2 mg/dL (1.6-2.3); Potassium 4.4 mmol/L (3.4-5.0); Sodium 136 mmol/L (137-145); Total Protein 5.6 g/dL (6.3-8.2)
[2025-02-13 07:11] LABS: Thyroid Stimulating Hormone Reflex 1.910 uIU/mL (0.465-4.68)
[2025-02-13] MEDS: EPOETIN ALFA-EPBX 10,000 UNITS/ML VIAL 10000 UNITS IV PUSH (11:14)
--- NOTE | 2025-02-13 11:54 | P.PNIM_ITS ---
Progress Note: A&P Assessment and Plan (1) Acute respiratory failure with hypoxia and hypercapnia: Code(s): J96.01 - Acute respiratory failure with hypoxia; J96.02 - Acute respiratory failure with hypercapnia Status: Acute Plan ESRD needing dialysis Patient missed her dialysis yesterday BUN elevated Nephrology consulted for dialysis Fluid overload Acute hypoxemic respiratory failure Patient missed dialysis yesterday CXR showed pulm edema titrate oxygen and continue dialysis Hypercalcemia, resolved Ca 9.5 Vit D and PTH, CT chest and AP ordered continue dialysis and monitor right foot cellulitis Erythema on right foot with right heel ulcer Blood culture, On Levaquin and Flagyl wound care consulted Hepatitis B s/p treatment based on chart review PAD s/p stent continue home meds Paroxysmal afib Continue home meds, discuss anticoagulation chart review unclear if patient was taken off Anticoagulation HTN titrate with clinical course Thoracic aneurysm aorta monitor Pulm hypertension continue outpatient follow up DVT prophylaxis on Sq heparin Subjective Date/time seen: 02/13/25 11:54 Interval history: Comfortable at bedside hypercalcemia resolved with dialysis Review of Systems Review of Systems: All other systems were reviewed and negative except as noted in the HPI above Exam Narrative: General: alert and comfortable Eyes: EOMI, PERRLA ENNT External ears normal, Neck is supple, no masses, Respiratory systems: Clear to auscultation Cardiovascular S1, S2, normal rhythm, no murmur, rub, or gallop; no thrill or palpable murmurs on palpation. Gastrointestinal: soft, non-tender, and non-distended abdomen with no masses; BS present Skin: right foot erythema Musculoskeletal: no abnormality and no tenderness, normal ROM Neurologic: Alert and oriented x3, non focal Mental Status Exam: normal affect Objective Data Vital Signs Vital Signs: Vital Signs - 24 hr 02/12/25 12:00 02/12/25 12:00 02/12/25 12:15 Temperature Pulse Rate 52 L 52 L 54 L Respiratory Rate Blood Pressure 108/44 L 98/40 L Pulse Oximetry Oxygen Delivery Oxygen Flow Rate 02/12/25 12:34 02/12/25 12:45 02/12/25 13:00 Temperature Pulse Rate 46 L 57 L 45 L Respiratory Rate Blood Pressure 98/31 L 118/45 L 100/43 L Pulse Oximetry Oxygen Delivery Oxygen Flow Rate 02/12/25 13:15 02/12/25 13:30 02/12/25 13:45 Temperature Pulse Rate 54 L 52 L 59 L Respiratory Rate Blood Pressure 92/32 L 90/37 L 94/43 L Pulse Oximetry Oxygen Delivery Oxygen Flow Rate 02/12/25 14:00 02/12/25 14:15 02/12/25 14:30 Temperature Pulse Rate 48 L 52 L 56 L Respiratory Rate Blood Pressure 117/48 L 113/45 L 130/49 L Pulse Oximetry Oxygen Delivery Oxygen Flow Rate 02/12/25 14:45 02/12/25 14:55 02/12/25 15:00 Temperature 96.8 F L Pulse Rate 61 62 63 Respiratory Rate 18 Blood Pressure 125/59 L 122/51 L 139/51 L Pulse Oximetry 94 Oxygen Delivery Oxygen Flow Rate 02/12/25 15:12 02/12/25 16:15 02/12/25 16:15 Temperature 97.9 F Pulse Rate 54 L 60 60 Respiratory Rate 18 16 Blood Pressure 140/53 L Pulse Oximetry 96 95 Oxygen Delivery Nasal Cannula Oxygen Flow Rate 2 02/12/25 20:00 02/12/25 20:00 02/12/25 21:03 Temperature Pulse Rate 68 Respiratory Rate Blood Pressure Pulse Oximetry 100 94 Oxygen Delivery Nasal Cannula Nasal Cannula Oxygen Flow Rate 2 1 02/12/25 22:00 02/12/25 22:58 02/13/25 00:00 Temperature 97.8 F Pulse Rate 71 64 Respiratory Rate 18 Blood Pressure 100/31 L 110/35 L Pulse Oximetry 100 Oxygen Delivery Oxygen Flow Rate 02/13/25 04:00 02/13/25 06:00 02/13/25 08:50 Temperature 97.9 F 99.1 F Pulse Rate 75 75 78 Respiratory Rate 18 16 Blood Pressure 100/37 L 132/68 Pulse Oximetry 98 98 Oxygen Delivery Oxygen Flow Rate 02/13/25 08:50 02/13/25 09:03 02/13/25 09:15 Temperature Pulse Rate 74 82 Respiratory Rate Blood Pressure 125/56 L 132/59 L Pulse Oximetry Oxygen Delivery Oxygen Flow Rate 1 02/13/25 09:30 02/13/25 09:45 02/13/25 10:00 Temperature Pulse Rate 83 87 81 Respiratory Rate Blood Pressure 123/61 126/58 L 134/58 L Pulse Oximetry Oxygen Delivery Oxygen Flow Rate 02/13/25 10:15 02/13/25 10:31 02/13/25 10:48 Temperature Pulse Rate 82 82 80 Respiratory Rate Blood Pressure 117/51 L 119/55 L 128/56 L Pulse Oximetry Oxygen Delivery Oxygen Flow Rate 02/13/25 11:05 02/13/25 11:15 02/13/25 11:30 Temperature Pulse Rate 75 81 81 Respiratory Rate Blood Pressure 132/53 L 146/65 H 139/59 L Pulse Oximetry Oxygen Delivery Oxygen Flow Rate 02/13/25 11:45 Temperature Pulse Rate 75 Respiratory Rate Blood Pressure 155/60 H Pulse Oximetry Oxygen Delivery Oxygen Flow Rate Intake/Output Intake/Output: Intake & Output 02/10/25 02/11/25 02/12/25 02/13/25 23:59 23:59 23:59 23:59 Intake Total 590 550 Output Total 1999 Balance -1410 550 Meds/Results Medications: Active Medications Generic Name Dose Route Start Last Admin Trade Name Freq PRN Reason Stop Dose Admin Acetaminophen 650 mg 02/12/25 09:54 02/13/25 10:54 Acetaminophen 325 Mg Tablet PO 650 mg Q4H PRN Administration Mild Pain (1-3) or Fever Atorvastatin Calcium 40 mg 02/13/25 09:00 Atorvastatin 40 Mg Tablet PO DAILY THERESE Dextrose 12.5 gm 02/12/25 21:02 Dextrose 50% 25 Gm/50 Ml Syringe IV PUSH PRN PRN Hypoglycemia Protocol Diclofenac Sodium 1 applic 02/12/25 20:58 Diclofenac Sodium 1% 100 Gm Gel (*Bkc) TOPICAL QID PRN discomfort Dicyclomine HCl 10 mg 02/12/25 21:00 Dicyclomine Hcl 10 Mg Capsule BY MOUTH BID PRN ABDOMINAL PAIN Epoetin Son-epbx 10,000 units 02/13/25 18:00 02/13/25 11:14 Epoetin Son-Epbx 10,000 Units/Ml Vial IV PUSH 02/13/25 18:01 10,000 units ONCE ONE Administration Glucagon 1 mg 02/12/25 21:02 Glucagon For Inj 1 Mg Vial IM PRN PRN Hypoglycemia Protocol Glucose 15 gm 02/12/25 21:02 Glucose Oral Gel 15 Gm Of Glucse In 37.5 Gm Tube PO PRN PRN Hypoglycemia Protocol Heparin Sodium (Porcine) 5,000 units 02/12/25 22:00 02/13/25 05:29 Heparin Sodium 5,000 Units/Ml Vial SUB-Q 5,000 units Q8HR THERESE Administration Albumin Human 50 mls @ 999 mls/hr 02/12/25 10:08 Albutein IVPB 03/14/25 10:07 Q10M PRN HYPOTENSION Levofloxacin/Dextrose 750 mg in 150 mls @ 100 mls/hr 02/14/25 15:00 Levaquin 750 Mg/D5w 150 Ml IVPB Q48H THERESE Metronidazole 500 mg in 100 mls @ 100 mls/hr 02/12/25 14:30 02/13/25 05:29 Flagyl 500 Mg/Iso Soln 100 Ml IVPB 100 mls/hr Q8HR THERESE Administration Dextrose 1,000 mls @ 100 mls/hr 02/12/25 21:02 Dextrose 5% 1,000 Ml IVPB PRN PRN Hypoglycemia Protocol Insulin Aspart 2 - 5 units 02/13/25 08:00 02/13/25 10:57 Insulin Aspart (*Bkc) 100 Units/Ml SUB-Q Not Given TIDWM [facility] Protocol Insulin Glargine 7 units 02/12/25 21:00 02/12/25 22:10 Insulin Glargine (*Bkc) 100 Units/Ml 0.15 units/kg (7 units) 7 units SUB-Q Administration HS THERESE Miscellaneous Information 0 each 02/12/25 00:01 Tobramycin Nurse Checking If Pt Still Using?? Filled In November03/14/25 00:00 [facility] Miscellaneous Information 1 each 02/13/25 10:48 Pharmacist Communication Order XX 02/13/25 10:49 ONCE ONE Miscellaneous Information 1 each 02/13/25 00:01 Order Clarification - Tenofovir 25mg Is Nonformulary XX 03/15/25 00:00 [facility] Ondansetron HCl 4 mg 02/12/25 09:54 Ondansetron Inj 4 Mg/2 Ml Vial IV PUSH Q4H PRN Nausea Pantoprazole Sodium 40 mg 02/12/25 21:00 02/12/25 22:10 Pantoprazole 40 Mg Tablet PO 40 mg Q12HR THERESE Administration Sitagliptin Phosphate 100 mg 02/13/25 09:00 Sitagliptin Phosphate 100 Mg Tablet PO DAILY THERESE Tobramycin Sulfate 1 drop 02/12/25 21:00 Tobramycin Sulfate 0.3% Ophth Soln 5 Ml EACH EYE Q4H THERESE Trazodone HCl 100 mg 02/12/25 21:00 02/12/25 22:10 Trazodone Hcl 50 Mg Tablet PO 100 mg QHS [facility] Administration Vitamin B Complex/Folic Acid 1 cap 02/13/25 09:00 Vitamin B Cmplx/Vit C/Folic Ac 1 Capsule PO DAILY [facility] Radiology Results: ITS Impressions Chest X-Ray 02/12/25 08:55 Impression: 1: Cardiomegaly with persistent mild interstitial edema. Skeletal Survey 02/13/25 06:09 Impression: 1: No suspicious lytic or blastic lesions are identified to suggest metastatic disease or myeloma. Chest/Abdomen/Pelvis CT 02/13/25 06:23 Impression: Small pleural effusions with mild bibasilar atelectatic change. Tiny gallstone. Renal osteodystrophy with atrophic kidneys and multiple renal cysts. Fecal impaction and stercoral proctitis. Labs Labs: Laboratory Results - last 24 hr 02/12/25 02/12/25 02/13/25 18:53 21:33 05:09 WBC RBC Hgb Hct MCV MCH MCHC RDW Plt Count MPV Immature Gran % (Auto) Neut % (Auto) Lymph % (Auto) [place] % (Auto) Eos % (Auto) Baso % (Auto) Lymph # (Auto) [place] # (Auto) Eos # (Auto) Baso # (Auto) Abs Immat Gran (auto) Absolute Neuts (auto) Absolute Nucleated RBC Band Neutrophils % Nucleated RBC % Platelet Estimate Macrocytosis Schistocytes Sodium Potassium Chloride Carbon Dioxide Anion Gap BUN Creatinine Estim Creat Clear Calc Estimated GFR Glucose POC Capillary Glucose 213 H Calcium Magnesium Total Bilirubin AST ALT Alkaline Phosphatase Total Protein Albumin TSH (Reflex) Nasal MRSA (PCR) Not detected [place]/Lambda Ratio Free [place] Light Chains Cancelled Free Lambda Light Chain Influenza A (RT-PCR) Negative Influenza B (RT-PCR) Negative RSV (RT-PCR) Negative SARS-CoV-2 RNA (RT-PCR) Negative 02/13/25 02/13/25 02/13/25 05:27 05:28 05:30 WBC 6.2 RBC 3.15 L Hgb 9.5 L Hct 33.4 L MCV 106.0 H D MCH 30.2 MCHC 28.4 L RDW 14.9 H Plt Count 114 L MPV 11.8 H Immature Gran % (Auto) 0.3 Neut % (Auto) 69.3 Lymph % (Auto) 16.1 L [place] % (Auto) 12.2 H Eos % (Auto) 1.8 Baso % (Auto) 0.3 Lymph # (Auto) 1.00 [place] # (Auto) 0.8 H Eos # (Auto) 0.1 Baso # (Auto) 0.0 Abs Immat Gran (auto) 0.02 Absolute Neuts (auto) 4.3 Absolute Nucleated RBC 0.000 Band Neutrophils % Not Reportable Nucleated RBC % 0.0 Platelet Estimate Slightly decreased Macrocytosis 1+ Schistocytes None seen Sodium 136 L Potassium 4.4 Chloride 99 Carbon Dioxide 29 Anion Gap 8 BUN 31 H D Creatinine 3.72 H Estim Creat Clear Calc Not Reportable Estimated GFR 12 L Glucose 125 H POC Capillary Glucose Calcium 9.5 Magnesium 2.2 Total Bilirubin 0.6 AST 43 H ALT 24 Alkaline Phosphatase 104 Total Protein 5.6 L Albumin 3.3 L TSH (Reflex) 1.910 Nasal MRSA (PCR) [place]/Lambda Ratio Cancelled Free [place] Light Chains Cancelled Free Lambda Light Chain Cancelled Influenza A (RT-PCR) Influenza B (RT-PCR) RSV (RT-PCR) SARS-CoV-2 RNA (RT-PCR) 02/13/25 07:35 WBC RBC Hgb Hct MCV MCH MCHC RDW Plt Count MPV Immature Gran % (Auto) Neut % (Auto) Lymph % (Auto) [place] % (Auto) Eos % (Auto) Baso % (Auto) Lymph # (Auto) [place] # (Auto) Eos # (Auto) Baso # (Auto) Abs Immat Gran (auto) Absolute Neuts (auto) Absolute Nucleated RBC Band Neutrophils % Nucleated RBC % Platelet Estimate Macrocytosis Schistocytes Sodium Potassium Chloride Carbon Dioxide Anion Gap BUN Creatinine Estim Creat Clear Calc Estimated GFR Glucose POC Capillary Glucose 134 H Calcium Magnesium Total Bilirubin AST ALT Alkaline Phosphatase Total Protein Albumin TSH (Reflex) Nasal MRSA (PCR) [place]/Lambda Ratio Free [place] Light Chains Free Lambda Light Chain Influenza A (RT-PCR) Influenza B (RT-PCR) RSV (RT-PCR) SARS-CoV-2 RNA (RT-PCR)
--- NOTE | 2025-02-13 12:34 | P.PNNP_ITS ---
Progress Note: A&P Assessment and Plan (1) End stage renal disease: Code(s): N18.6 - End stage renal disease Status: Chronic Assessment and Plan: * HD underway * continue M/W/F dialysis schedule while hospitalized * volume status looks better. * K and Co2 okay (2) Acute hypoxic respiratory failure: Code(s): J96.01 - Acute respiratory failure with hypoxia Status: Acute Assessment and Plan: * as noted by ER * pCO2 a bit high * pO2 a little low * improved with 2L oxygen by nasal cannula * presumably due to mild pulmonary edema on CXR * fluid removal with HD yesterday and will today. * check viral panel * wean supplemental oxygen as tolerated. down to 1L oxygen. (3) Cellulitis of right foot: Code(s): L03.115 - Cellulitis of right lower limb Status: Acute Assessment and Plan: * suspected by exam * noted erythema along with right heel ulcer * follow culture data * on levaquin and flagyl (4) Hypercalcemia: Code(s): E83.52 - Hypercalcemia Status: Acute Assessment and Plan: * as noted by labs yesterday and today in ER * surprising since she is on Sensipar and Prolia (as an outpatient; last dose was in October) * outpatient dialysis labs do note her calcium levels at 10.9 in January 2025 * vit d level 122. Vit D is not on her list of meds, but it is on [facility] list. will stop this. * checking PTHrp, ALEJANDRINA level, Vitamin A, PTH, Vitamin D (1,25) * ca level is better today (5) Atrial fibrillation: Qualifiers: Atrial fibrillation type: unspecified Qualified Code(s): I48.91 - Unspecified atrial fibrillation Code(s): I48.91 - Unspecified atrial fibrillation Status: Chronic Assessment and Plan: * paroxysmal * rate controlled * not on anticoagulation (due to hx of GI bleeding versus fall risk?) (6) Hypertension: Qualifiers: Hypertension type: unspecified Qualified Code(s): I10 - Essential (primary) hypertension Code(s): I10 - Essential (primary) hypertension Status: Chronic Assessment and Plan: * reasonable control * follow hemodynamics (7) Anemia: Qualifiers: Anemia type: unspecified type Qualified Code(s): D64.9 - Anemia, unspecified Code(s): D64.9 - Anemia, unspecified Status: Chronic Assessment and Plan: * related to ESRD * H/H dropped a bit. true change? check tomorrow and give if it isn't back up above 11. * hold Epogen with HD for now * check cbc in am (8) Type 2 diabetes mellitus: Qualifiers: Diabetes mellitus complication status: without complication Diabetes mellitus terminal gauger insulin use: without halfway use Qualified Code(s): E11.9 - Type 2 diabetes mellitus without complications Code(s): E11.9 - Type 2 diabetes mellitus without complications Status: Chronic Assessment and Plan: * follow accuchecks * glycemic control per hospitalist Subjective Date/time seen: 02/13/25 12:34 Interval history: Patient on hemodialysis and tolerating well. She was seen at 11:00 a.m.. pt is feeling better. no cp or sob Review of Systems Cardiovascular: Cardiovascular: Reports no additional cardiovascular complaints Respiratory: Respiratory: Reports no additional respiratory complaints Gastrointestinal: Gastrointestinal: Reports no additional gastrointestinal complaints Genitourinary: Genitourinary: Reports no additional female genitourinary complaints Exam Narrative: WDWN in NAD skin no rash head ncat lungs clear cor reg no rub abd BS+ nontender and soft ext no edema. Objective Data Vital Signs Vital Signs: Vital Signs - 24 hr 02/12/25 12:45 02/12/25 13:00 02/12/25 13:15 Temperature Pulse Rate 57 L 45 L 54 L Respiratory Rate Blood Pressure 118/45 L 100/43 L 92/32 L Pulse Oximetry Oxygen Delivery Oxygen Flow Rate 02/12/25 13:30 02/12/25 13:45 02/12/25 14:00 Temperature Pulse Rate 52 L 59 L 48 L Respiratory Rate Blood Pressure 90/37 L 94/43 L 117/48 L Pulse Oximetry Oxygen Delivery Oxygen Flow Rate 02/12/25 14:15 02/12/25 14:30 02/12/25 14:45 Temperature Pulse Rate 52 L 56 L 61 Respiratory Rate Blood Pressure 113/45 L 130/49 L 125/59 L Pulse Oximetry Oxygen Delivery Oxygen Flow Rate 02/12/25 14:55 02/12/25 15:00 02/12/25 15:12 Temperature 96.8 F L 97.9 F Pulse Rate 62 63 54 L Respiratory Rate 18 18 Blood Pressure 122/51 L 139/51 L 140/53 L Pulse Oximetry 94 96 Oxygen Delivery Oxygen Flow Rate 02/12/25 16:15 02/12/25 16:15 02/12/25 20:00 Temperature Pulse Rate 60 60 Respiratory Rate 16 Blood Pressure Pulse Oximetry 95 100 Oxygen Delivery Nasal Cannula Nasal Cannula Oxygen Flow Rate 2 2 02/12/25 20:00 02/12/25 21:03 02/12/25 22:00 Temperature 97.8 F Pulse Rate 68 71 Respiratory Rate 18 Blood Pressure 100/31 L Pulse Oximetry 94 100 Oxygen Delivery Nasal Cannula Oxygen Flow Rate 1 02/12/25 22:58 02/13/25 00:00 02/13/25 04:00 Temperature Pulse Rate 64 75 Respiratory Rate Blood Pressure 110/35 L Pulse Oximetry Oxygen Delivery Oxygen Flow Rate 02/13/25 06:00 02/13/25 08:50 02/13/25 08:50 Temperature 97.9 F 99.1 F Pulse Rate 75 78 Respiratory Rate 18 16 Blood Pressure 100/37 L 132/68 Pulse Oximetry 98 98 Oxygen Delivery Oxygen Flow Rate 1 02/13/25 09:03 02/13/25 09:15 02/13/25 09:30 Temperature Pulse Rate 74 82 83 Respiratory Rate Blood Pressure 125/56 L 132/59 L 123/61 Pulse Oximetry Oxygen Delivery Oxygen Flow Rate 02/13/25 09:45 02/13/25 10:00 02/13/25 10:15 Temperature Pulse Rate 87 81 82 Respiratory Rate Blood Pressure 126/58 L 134/58 L 117/51 L Pulse Oximetry Oxygen Delivery Oxygen Flow Rate 02/13/25 10:31 02/13/25 10:48 02/13/25 11:05 Temperature Pulse Rate 82 80 75 Respiratory Rate Blood Pressure 119/55 L 128/56 L 132/53 L Pulse Oximetry Oxygen Delivery Oxygen Flow Rate 02/13/25 11:15 02/13/25 11:30 02/13/25 11:45 Temperature Pulse Rate 81 81 75 Respiratory Rate Blood Pressure 146/65 H 139/59 L 155/60 H Pulse Oximetry Oxygen Delivery Oxygen Flow Rate 02/13/25 12:00 02/13/25 12:15 Temperature Pulse Rate 79 65 Respiratory Rate Blood Pressure 142/76 H 142/57 H Pulse Oximetry Oxygen Delivery Oxygen Flow Rate Intake/Output Intake/Output: Intake & Output 02/10/25 02/11/25 02/12/25 02/13/25 23:59 23:59 23:59 23:59 Intake Total 590 550 Output Total 1999 Balance -1410 550 Meds/Results Medications: Active Medications Generic Name Dose Route Start Last Admin Trade Name Freq PRN Reason Stop Dose Admin Acetaminophen 650 mg 02/12/25 09:54 02/13/25 10:54 Acetaminophen 325 Mg Tablet PO 650 mg Q4H PRN Administration Mild Pain (1-3) or Fever Atorvastatin Calcium 40 mg 02/13/25 09:00 Atorvastatin 40 Mg Tablet PO DAILY THERESE Dextrose 12.5 gm 02/12/25 21:02 Dextrose 50% 25 Gm/50 Ml Syringe IV PUSH PRN PRN Hypoglycemia Protocol Diclofenac Sodium 1 applic 02/12/25 20:58 Diclofenac Sodium 1% 100 Gm Gel (*[facility]) TOPICAL QID PRN discomfort Dicyclomine HCl 10 mg 02/12/25 21:00 Dicyclomine Hcl 10 Mg Capsule BY MOUTH BID PRN ABDOMINAL PAIN Epoetin Son-epbx 10,000 units 02/13/25 18:00 02/13/25 11:14 Epoetin Son-Epbx 10,000 Units/Ml Vial IV PUSH 02/13/25 18:01 10,000 units ONCE ONE Administration Glucagon 1 mg 02/12/25 21:02 Glucagon For Inj 1 Mg Vial IM PRN PRN Hypoglycemia Protocol Glucose 15 gm 02/12/25 21:02 Glucose Oral Gel 15 Gm Of Glucse In 37.5 Gm Tube PO PRN PRN Hypoglycemia Protocol Heparin Sodium (Porcine) 5,000 units 02/12/25 22:00 02/13/25 05:29 Heparin Sodium 5,000 Units/Ml Vial SUB-Q 5,000 units Q8HR THERESE Administration Albumin Human 50 mls @ 999 mls/hr 02/12/25 10:08 Albutein IVPB 03/14/25 10:07 Q10M PRN HYPOTENSION Levofloxacin/Dextrose 750 mg in 150 mls @ 100 mls/hr 02/14/25 15:00 Levaquin 750 Mg/D5w 150 Ml IVPB Q48H [facility]ERESE Metronidazole 500 mg in 100 mls @ 100 mls/hr 02/12/25 14:30 02/13/25 05:29 Flagyl 500 Mg/Iso Soln 100 Ml IVPB 100 mls/hr Q8HR THERESE Administration Dextrose 1,000 mls @ 100 mls/hr 02/12/25 21:02 Dextrose 5% 1,000 Ml IVPB PRN PRN Hypoglycemia Protocol Insulin Aspart 2 - 5 units 02/13/25 08:00 02/13/25 10:57 Insulin Aspart (*Bkc) 100 Units/Ml SUB-Q Not Given TIDWM [facility] Protocol Insulin Glargine 7 units 02/12/25 21:00 02/12/25 22:10 Insulin Glargine (*Bkc) 100 Units/Ml 0.15 units/kg (7 units) 7 units SUB-Q Administration [facility] Miscellaneous Information 0 each 02/12/25 00:01 Tobramycin Nurse Checking If Pt Still Using?? Filled In November XX 03/14/25 00:00 [facility] Miscellaneous Information 1 each 02/13/25 00:01 Order Clarification - Tenofovir 25mg Is Nonformulary XX 03/15/25 00:00 [facility] Ondansetron HCl 4 mg 02/12/25 09:54 Ondansetron Inj 4 Mg/2 Ml Vial IV PUSH Q4H PRN Nausea Pantoprazole Sodium 40 mg 02/12/25 21:00 02/12/25 22:10 Pantoprazole 40 Mg Tablet PO 40 mg Q12HR THERESE Administration Sitagliptin Phosphate 100 mg 02/13/25 09:00 Sitagliptin Phosphate 100 Mg Tablet PO DAILY THERESE Tobramycin Sulfate 1 drop 02/12/25 21:00 Tobramycin Sulfate 0.3% Ophth Soln 5 Ml EACH EYE Q4H [facility] Trazodone HCl 100 mg 02/12/25 21:00 02/12/25 22:10 Trazodone Hcl 50 Mg Tablet PO 100 mg QHS [facility] Administration Vitamin B Complex/Folic Acid 1 cap 02/13/25 09:00 Vitamin B Cmplx/Vit C/Folic Ac 1 Capsule PO DAILY [facility] Radiology Results: ITS Impressions Chest X-Ray 02/12/25 08:55 Impression: 1: Cardiomegaly with persistent mild interstitial edema. Skeletal Survey 02/13/25 06:09 Impression: 1: No suspicious lytic or blastic lesions are identified to suggest metastatic disease or myeloma. Chest/Abdomen/Pelvis CT 02/13/25 06:23 Impression: Small pleural effusions with mild bibasilar atelectatic change. Tiny gallstone. Renal osteodystrophy with atrophic kidneys and multiple renal cysts. Fecal impaction and stercoral proctitis. Labs Labs: Laboratory Results - last 24 hr 02/12/25 02/12/25 02/13/25 18:53 21:33 05:09 WBC RBC Hgb Hct MCV MCH MCHC RDW Plt Count MPV Immature Gran % (Auto) Neut % (Auto) Lymph % (Auto) [place] % (Auto) Eos % (Auto) Baso % (Auto) Lymph # (Auto) [place] # (Auto) Eos # (Auto) Baso # (Auto) Abs Immat Gran (auto) Absolute Neuts (auto) Absolute Nucleated RBC Band Neutrophils % Nucleated RBC % Platelet Estimate Macrocytosis Schistocytes Sodium Potassium Chloride Carbon Dioxide Anion Gap BUN Creatinine Estim Creat Clear Calc Estimated GFR Glucose POC Capillary Glucose 213 H Calcium Magnesium Total Bilirubin AST ALT Alkaline Phosphatase Total Protein Albumin Vitamin D 25-Hydroxy TSH (Reflex) Nasal MRSA (PCR) Not detected [place]/Lambda Ratio Free [place] Light Chains Cancelled Free Lambda Light Chain Influenza A (RT-PCR) Negative Influenza B (RT-PCR) Negative RSV (RT-PCR) Negative SARS-CoV-2 RNA (RT-PCR) Negative 02/13/25 02/13/25 02/13/25 05:27 05:28 05:30 WBC 6.2 RBC 3.15 L Hgb 9.5 L Hct 33.4 L MCV 106.0 H D MCH 30.2 MCHC 28.4 L RDW 14.9 H Plt Count 114 L MPV 11.8 H Immature Gran % (Auto) 0.3 Neut % (Auto) 69.3 Lymph % (Auto) 16.1 L [place] % (Auto) 12.2 H Eos % (Auto) 1.8 Baso % (Auto) 0.3 Lymph # (Auto) 1.00 [place] # (Auto) 0.8 H Eos # (Auto) 0.1 Baso # (Auto) 0.0 Abs Immat Gran (auto) 0.02 Absolute Neuts (auto) 4.3 Absolute Nucleated RBC 0.000 Band Neutrophils % Not Reportable Nucleated RBC % 0.0 Platelet Estimate Slightly decreased Macrocytosis 1+ Schistocytes None seen Sodium 136 L Potassium 4.4 Chloride 99 Carbon Dioxide 29 Anion Gap 8 BUN 31 H D Creatinine 3.72 H Estim Creat Clear Calc Not Reportable Estimated GFR 12 L Glucose 125 H POC Capillary Glucose Calcium 9.5 Magnesium 2.2 Total Bilirubin 0.6 AST 43 H ALT 24 Alkaline Phosphatase 104 Total Protein 5.6 L Albumin 3.3 L Vitamin D 25-Hydroxy 122.0 TSH (Reflex) 1.910 Nasal MRSA (PCR) [place]/Lambda Ratio Cancelled Free [place] Light Chains Cancelled Free Lambda Light Chain Cancelled Influenza A (RT-PCR) Influenza B (RT-PCR) RSV (RT-PCR) SARS-CoV-2 RNA (RT-PCR) 02/13/25 07:35 WBC RBC Hgb Hct MCV MCH MCHC RDW Plt Count MPV Immature Gran % (Auto) Neut % (Auto) Lymph % (Auto) [place] % (Auto) Eos % (Auto) Baso % (Auto) Lymph # (Auto) [place] # (Auto) Eos # (Auto) Baso # (Auto) Abs Immat Gran (auto) Absolute Neuts (auto) Absolute Nucleated RBC Band Neutrophils % Nucleated RBC % Platelet Estimate Macrocytosis Schistocytes Sodium Potassium Chloride Carbon Dioxide Anion Gap BUN Creatinine Estim Creat Clear Calc Estimated GFR Glucose POC Capillary Glucose 134 H Calcium Magnesium Total Bilirubin AST ALT Alkaline Phosphatase Total Protein Albumin Vitamin D 25-Hydroxy TSH (Reflex) Nasal MRSA (PCR) [place]/Lambda Ratio Free [place] Light Chains Free Lambda Light Chain Influenza A (RT-PCR) Influenza B (RT-PCR) RSV (RT-PCR) SARS-CoV-2 RNA (RT-PCR)
--- NOTE | 2025-02-13 13:36 | PCPTNOTE ---
Attempted evaluation 1252, patient at dialysis. Will follow.
--- NOTE | 2025-02-13 15:40 | PCOTNOTE ---
Attempted to see pt for OT evaluation however pt was at dialysis. Will continue to follow.
[2025-02-13] MEDS: VITAMIN B CMPLX/VIT C/FOLIC AC 1 CAPSULE 1 CAP PO (15:57)
[2025-02-13] MEDS: ATORVASTATIN 40 MG TABLET PO (15:58)
--- NOTE | 2025-02-13 16:55 | PHAR ---
[facility] HOME MEDICATIONS TOBRAMYCIN EYE DROPS AND TENOFOVIR 25MG TABLETS
[2025-02-13] MEDS: TENOFOVIR 1 EACH PO (17:57)
[2025-02-13] MEDS: traMADol HCL (*CRX) 50 MG TABLET PO (17:57)
[2025-02-13 18:08] LABS: Calcium, Ionized 6.2 mg/dL (4.5-5.6)
[2025-02-13 18:42] LABS: Alveolar/Arterial O2 Gradient 57.1 mmHg; Fractional Inspired Oxygen 24 %; HCO3 ABG 29.7 mEq/l (22.0-26.0); Oxygen Content ABG 13.8 %vol (16.0-22.0); Oxygen Saturation ABG 89.2 % (95.0-100.0); PCO2 ABG 48.5 mmHg (35.0-45.0); PO2 ABG 56.3 mmHg (80.0-100.0); PO2 FiO2 Ratio Arterial Blood 2.35 %
[2025-02-13 18:43] LABS: Liters per Minute 1.0 LPM; Modified Allen's Test Pass; Site Drawn RIGHT RADIAL
[2025-02-13] MEDS: PANTOPRAZOLE 40 MG TABLET PO (21:29)
[2025-02-13] MEDS: INSULIN GLARGINE (*BKC) 100 UNITS/ML 7 UNITS SUB-Q (21:30)
[2025-02-13] MEDS: TOBRAMYCIN SULFATE 0.3% OPHTH SOLN 5 ML 1 DROP EACH EYE (21:42)
[2025-02-14] VITALS (11 sets, daily range): BP systolic 129–146; BP diastolic 54–65; PULSE 61–88; RESP 14–20; TEMP 36.6–36.7; O2SAT 90–100
[2025-02-14 05:55] LABS: Hematocrit 35.7 % (37.0-47.0); Hemoglobin 10.2 g/dL (12.0-15.0); Immature Granulocyte Percent A 0.3 % (0-0.5); Immature Platelet Fraction Pct 4.5 % (0.9-11.2); Lymphocytes Absolute Auto 1.16 K/mm3 (0.9-3.2); Mean Corpuscular HGB Conc 28.6 g/dl (32-36); Mean Corpuscular Hemoglobin 30.3 pg (26-34); Mean Corpuscular Volume 105.9 fl (80-100); Nucleated Red Blood Cells Absolute Auto 0.000 K/mm3 (0.0-0.012); Nucleated Red Blood Cells Perc 0.0 % (0.0-0.2); Platelet Count Result 111 k/mm3 (150-375); Red Blood Count 3.37 M/mm3 (4.2-5.4); White Blood Count 7.0 K/mm3 (4.5-10.0)
[2025-02-14] MEDS: TOBRAMYCIN SULFATE 0.3% OPHTH SOLN 5 ML 1 DROP EACH EYE ×4 (05:58→22:14)
[2025-02-14] MEDS: metroNIDAZOLE 500 MG/ISO 100ML 500 MG/100 ML BAG 100 MG IVPB (05:58)
[2025-02-14 06:22] LABS: Alanine Aminotransferase 22 U/L (6-35); Albumin Level 3.4 g/dL (3.5-5.1); Alkaline Phosphatase 99 U/L (38-126); Anion Gap 7 mmol/L (4-12); Aspartate Amino Transferase 32 U/L (14-36); Bilirubin,Total 0.6 mg/dL (0.2-1.3); Blood Urea Nitrogen 18 mg/dL (7-17); Calcium 9.1 mg/dL (8.4-10.2); Carbon Dioxide 27 mmol/L (22-30); Chloride 103 mmol/L (98-107); Estimated Glomerular Filt Rate 16; Glucose 139 mg/dL (65-110); Magnesium 2.2 mg/dL (1.6-2.3); Potassium 3.8 mmol/L (3.4-5.0); Sodium 137 mmol/L (137-145); Total Protein 5.8 g/dL (6.3-8.2)
[2025-02-14 06:31] LABS: Hypochromasia 1+; Macrocytosis 1+ (NORMAL); Schistocytes None Seen
[2025-02-14] MEDS: PANTOPRAZOLE 40 MG TABLET PO ×2 (09:33→22:05)
[2025-02-14] MEDS: ATORVASTATIN 40 MG TABLET PO (09:33)
[2025-02-14] MEDS: VITAMIN B CMPLX/VIT C/FOLIC AC 1 CAPSULE 1 CAP PO (09:33)
[2025-02-14] MEDS: BISACODYL 5 MG TABLET EC PO (09:38)
--- NOTE | 2025-02-14 11:04 | P.PNNP_ITS ---
Progress Note: A&P Assessment and Plan (1) End stage renal disease: Code(s): N18.6 - End stage renal disease Status: Chronic Assessment and Plan: * HD Went well yesterday. * continue M/W/F dialysis schedule while hospitalized * volume status looks okay right now. * K and Co2 okay (2) Acute hypoxic respiratory failure: Code(s): J96.01 - Acute respiratory failure with hypoxia Status: Acute Assessment and Plan: * as noted by ER * pCO2 a bit high * pO2 a little low * Doing okay with 1L oxygen by nasal cannula * presumably due to mild pulmonary edema on CXR * fluid removal with HD yesterday and will today. * check viral panel * wean supplemental oxygen as tolerated. down to 1L oxygen. (3) Cellulitis of right foot: Code(s): L03.115 - Cellulitis of right lower limb Status: Acute Assessment and Plan: * suspected by exam * noted erythema along with right heel ulcer * follow culture data * on levaquin and flagyl (4) Hypercalcemia: Code(s): E83.52 - Hypercalcemia Status: Acute Assessment and Plan: * as noted by labs yesterday and today in ER * surprising since she is on Sensipar and Prolia (as an outpatient; last dose was in October) * outpatient dialysis labs do note her calcium levels at 10.9 in January 2025 * vit d level 122. Vit D is not on her list of meds, but it is on [facility] list. will stop this. * checking PTHrp, ALEJANDRINA level, Vitamin A, PTH, Vitamin D (1,25) all of these are pending still * ca level is better today (5) Atrial fibrillation: Qualifiers: Atrial fibrillation type: unspecified Qualified Code(s): I48.91 - Unspecified atrial fibrillation Code(s): I48.91 - Unspecified atrial fibrillation Status: Chronic Assessment and Plan: * paroxysmal * rate controlled * not on anticoagulation (due to hx of GI bleeding versus fall risk?) (6) Hypertension: Qualifiers: Hypertension type: unspecified Qualified Code(s): I10 - Essential (primary) hypertension Code(s): I10 - Essential (primary) hypertension Status: Chronic Assessment and Plan: * reasonable control * follow hemodynamics (7) Anemia: Qualifiers: Anemia type: unspecified type Qualified Code(s): D64.9 - Anemia, unspecified Code(s): D64.9 - Anemia, unspecified Status: Chronic Assessment and Plan: * related to ESRD * H/H dropped a bit. true change? check tomorrow and give if it isn't back up above 11. * hold Epogen with HD for now * check cbc in am (8) Type 2 diabetes mellitus: Qualifiers: Diabetes mellitus roasterman insulin use: without usp use Diabetes mellitus complication status: without complication Qualified Code(s): E11.9 - Type 2 diabetes mellitus without complications Code(s): E11.9 - Type 2 diabetes mellitus without complications Status: Chronic Assessment and Plan: * follow accuchecks * glycemic control per hospitalist Plan I talked with Shasta's daughter on the phone yesterday afternoon. She apparently has a carotid stent done at [facility]. that doctor wants her on Plavix. However she bleeds excessively after dialysis while on the Plavix so this was discontinued. she told me that he was going to call me, but if he does not I will try to reach out to him. Subjective Date/time seen: 02/14/25 11:04 Interval history: Patient is up in a chair. She just finished physical therapy. She is breathing okay. She wants the oxygen off. She is now only on 1L of oxygen. She finished dialysis yesterday and it went well. She had about 1500cc taken off. Exam Narrative: WDWN in NAD skin no rash head ncat lungs clear cor reg no rub abd BS+ nontender and soft ext no edema. Objective Data Vital Signs Vital Signs: Vital Signs - 24 hr 02/13/25 11:05 02/13/25 11:15 02/13/25 11:30 Temperature Pulse Rate 75 81 81 Respiratory Rate Blood Pressure 132/53 L 146/65 H 139/59 L Pulse Oximetry Oxygen Delivery Oxygen Flow Rate 02/13/25 11:45 02/13/25 12:00 02/13/25 12:00 Temperature Pulse Rate 75 79 77 Respiratory Rate Blood Pressure 155/60 H 142/76 H Pulse Oximetry Oxygen Delivery Oxygen Flow Rate 02/13/25 12:15 02/13/25 12:34 02/13/25 12:50 Temperature 99.1 F Pulse Rate 65 69 60 Respiratory Rate 16 Blood Pressure 142/57 H 135/61 123/56 L Pulse Oximetry 98 Oxygen Delivery Oxygen Flow Rate 02/13/25 14:00 02/13/25 16:04 02/13/25 20:00 Temperature 99.5 F Pulse Rate 68 73 77 Respiratory Rate 16 16 Blood Pressure 102/58 L Pulse Oximetry 94 99 Oxygen Delivery Room Air Oxygen Flow Rate 02/13/25 20:00 02/13/25 21:47 02/14/25 00:00 Temperature 98.0 F Pulse Rate 74 77 61 Respiratory Rate 16 Blood Pressure 123/55 L Pulse Oximetry 99 Oxygen Delivery Oxygen Flow Rate 02/14/25 04:00 02/14/25 07:03 02/14/25 09:25 Temperature 97.9 F Pulse Rate 63 78 Respiratory Rate 14 Blood Pressure 132/65 Pulse Oximetry 99 Oxygen Delivery Nasal Cannula Oxygen Flow Rate 1 Intake/Output Intake/Output: Intake & Output 02/11/25 02/12/25 02/13/25 02/14/25 23:59 23:59 23:59 23:59 Intake Total 590 1350 420 Output Total 2000 1500 Balance -1410 -150 420 Meds/Results Medications: Active Medications Generic Name Dose Route Start Last Admin Trade Name Freq PRN Reason Stop Dose Admin Acetaminophen 650 mg 02/12/25 09:54 02/13/25 10:54 Acetaminophen 325 Mg Tablet PO 650 mg Q4H PRN Administration Mild Pain (1-3) or Fever Atorvastatin Calcium 40 mg 02/13/25 09:00 02/14/25 09:33 Atorvastatin 40 Mg Tablet PO 40 mg DAILY THERESE Administration Dextrose 12.5 gm 02/12/25 21:02 Dextrose 50% 25 Gm/50 Ml Syringe IV PUSH PRN PRN Hypoglycemia Protocol Diclofenac Sodium 1 applic 02/12/25 20:58 Diclofenac Sodium 1% 100 Gm Gel (*Bkc) TOPICAL QID PRN discomfort Dicyclomine HCl 10 mg 02/12/25 21:00 Dicyclomine Hcl 10 Mg Capsule BY MOUTH BID PRN ABDOMINAL PAIN Glucagon 1 mg 02/12/25 21:02 Glucagon For Inj 1 Mg Vial IM PRN PRN Hypoglycemia Protocol Glucose 15 gm 02/12/25 21:02 Glucose Oral Gel 15 Gm Of Glucse In 37.5 Gm Tube PO PRN PRN Hypoglycemia Protocol Heparin Sodium (Porcine) 5,000 units 02/12/25 22:00 02/14/25 05:58 Heparin Sodium 5,000 Units/Ml Vial SUB-Q 5,000 units Q8HR THERESE Administration Home Med 1 each 02/13/25 16:53 02/13/25 17:57 Home Medication - Tenofovir 25mg Tablets PO 03/15/25 16:52 1 each DAILY PRN Administration AFTER DIALYSIS TREATMENT Albumin Human 50 mls @ 999 mls/hr 02/12/25 10:08 Albutein IVPB 03/14/25 10:07 Q10M PRN HYPOTENSION Levofloxacin/Dextrose 750 mg in 150 mls @ 100 mls/hr 02/14/25 15:00 Levaquin 750 Mg/D5w 150 Ml IVPB Q48H THERESE Metronidazole 500 mg in 100 mls @ 100 mls/hr 02/12/25 14:30 02/14/25 07:00 Flagyl 500 Mg/Iso Soln 100 Ml IVPB Infused Q8HR THERESE Infusion Dextrose 1,000 mls @ 100 mls/hr 02/12/25 21:02 Dextrose 5% 1,000 Ml IVPB PRN PRN Hypoglycemia Protocol Insulin Aspart 2 - 5 units 02/13/25 08:00 02/14/25 08:01 Insulin Aspart (*Bkc) 100 Units/Ml SUB-Q Not Given TIDWM [facility] Protocol Insulin Glargine 7 units 02/12/25 21:00 02/13/25 21:30 Insulin Glargine (*Bkc) 100 Units/Ml 0.15 units/kg (7 units) 7 units SUB-Q Administration HS THERESE Ondansetron HCl 4 mg 02/12/25 09:54 Ondansetron Inj 4 Mg/2 Ml Vial IV PUSH Q4H PRN Nausea Pantoprazole Sodium 40 mg 02/12/25 21:00 02/14/25 09:33 Pantoprazole 40 Mg Tablet PO 40 mg Q12HR THERESE Administration Polyethylene Glycol 17 gm 02/14/25 10:55 Polyethylene Glycol 3350 17 Gm Powd.Pack PO QAM THERESE Sitagliptin Phosphate 100 mg 02/13/25 09:00 02/14/25 09:33 Sitagliptin Phosphate 100 Mg Tablet PO 100 mg DAILY THERESE Administration Tobramycin Sulfate 1 drop 02/12/25 21:00 02/14/25 09:33 Tobramycin Sulfate 0.3% Ophth Soln 5 Ml EACH EYE 1 drop Q4HR THERESE Administration Tramadol HCl 50 mg 02/13/25 16:54 02/13/25 17:57 Tramadol Hcl (*Crx) 50 Mg Tablet PO 50 mg Q6H PRN Administration Pain Rated 7-10 Trazodone HCl 100 mg 02/12/25 21:00 02/13/25 21:29 Trazodone Hcl 50 Mg Tablet PO 100 mg QHS THERESE Administration Vitamin B Complex/Folic Acid 1 cap 02/13/25 09:00 02/14/25 09:33 Vitamin B Cmplx/Vit C/Folic Ac 1 Capsule PO 1 cap DAILY THERESE Administration Radiology Results: ITS Impressions Skeletal Survey 02/13/25 06:09 Impression: 1: No suspicious lytic or blastic lesions are identified to suggest metastatic disease or myeloma. Chest/Abdomen/Pelvis CT 02/13/25 06:23 Impression: Small pleural effusions with mild bibasilar atelectatic change. Tiny gallstone. Renal osteodystrophy with atrophic kidneys and multiple renal cysts. Fecal impaction and stercoral proctitis. Head CT 02/13/25 20:04 Impression: No acute intracranial hemorrhage or suspicious mass effect. Chest X-Ray 02/13/25 20:06 IMPRESSION: Increased left-sided pleural effusion without additional abnormality within the bilateral lung salazar. Labs Labs: Laboratory Results - last 24 hr 02/12/25 02/13/25 02/13/25 08:18 05:28 13:31 WBC RBC Hgb Hct MCV MCH MCHC RDW Plt Count MPV Immature Gran % (Auto) Neut % (Auto) Lymph % (Auto) [place] % (Auto) Eos % (Auto) Baso % (Auto) Lymph # (Auto) [place] # (Auto) Eos # (Auto) Baso # (Auto) Abs Immat Gran (auto) Absolute Neuts (auto) Absolute Nucleated RBC Band Neutrophils % Nucleated RBC % Atypical Lymphocytes Platelet Estimate % Immature Plt Fraction Hypochromasia Macrocytosis Schistocytes Puncture Site ABG pH ABG pCO2 ABG pO2 ABG PO2/FiO2 Ratio ABG HCO3 ABG O2 Saturation ABG O2 Content ABG Base Excess A-a Gradient Oxyhemoglobin Total Hemoglobin O2 Delivery Device O2 Liters/Min FiO2 Sodium Potassium Chloride Carbon Dioxide Anion Gap BUN Creatinine Estim Creat Clear Calc Estimated GFR Glucose POC Capillary Glucose 173 H Calcium Ionized Calcium 6.2 H Phosphorus Magnesium Total Bilirubin AST ALT Alkaline Phosphatase Total Protein Albumin Vitamin D 25-Hydroxy 122.0 02/13/25 02/13/25 02/13/25 16:37 18:23 21:32 WBC RBC Hgb Hct MCV MCH MCHC RDW Plt Count MPV Immature Gran % (Auto) Neut % (Auto) Lymph % (Auto) [place] % (Auto) Eos % (Auto) Baso % (Auto) Lymph # (Auto) [place] # (Auto) Eos # (Auto) Baso # (Auto) Abs Immat Gran (auto) Absolute Neuts (auto) Absolute Nucleated RBC Band Neutrophils % Nucleated RBC % Atypical Lymphocytes Platelet Estimate % Immature Plt Fraction Hypochromasia Macrocytosis Schistocytes Puncture Site Right radial ABG pH 7.405 ABG pCO2 48.5 H ABG pO2 56.3 L ABG PO2/FiO2 Ratio 2.35 ABG HCO3 29.7 H ABG O2 Saturation 89.2 L ABG O2 Content 13.8 L ABG Base Excess 4.2 A-a Gradient 57.1 Oxyhemoglobin 88.0 L Total Hemoglobin 11.1 L O2 Delivery Device Nasal cannula O2 Liters/Min 1.0 FiO2 24 Sodium Potassium Chloride Carbon Dioxide Anion Gap BUN Creatinine Estim Creat Clear Calc Estimated GFR Glucose POC Capillary Glucose 141 H 188 H Calcium Ionized Calcium Phosphorus Magnesium Total Bilirubin AST ALT Alkaline Phosphatase Total Protein Albumin Vitamin D 25-Hydroxy 02/14/25 02/14/25 05:44 07:36 WBC 7.0 RBC 3.37 L Hgb 10.2 L Hct 35.7 L MCV 105.9 H MCH 30.3 MCHC 28.6 L RDW 15.1 H Plt Count 111 L MPV 11.2 H Immature Gran % (Auto) 0.3 Neut % (Auto) 67.0 Lymph % (Auto) 16.7 L [place] % (Auto) 13.6 H Eos % (Auto) 2.0 Baso % (Auto) 0.4 Lymph # (Auto) 1.16 Stephen[place] # (Auto) 1.0 H Eos # (Auto) 0.1 Baso # (Auto) 0.0 Abs Immat Gran (auto) 0.02 Absolute Neuts (auto) 4.7 Absolute Nucleated RBC 0.000 Band Neutrophils % Not Reportable Nucleated RBC % 0.0 Atypical Lymphocytes Present Platelet Estimate Adequate % Immature Plt Fraction 4.5 Hypochromasia 1+ Macrocytosis 1+ Schistocytes None seen Puncture Site ABG pH ABG pCO2 ABG pO2 ABG PO2/FiO2 Ratio ABG HCO3 ABG O2 Saturation ABG O2 Content ABG Base Excess A-a Gradient Oxyhemoglobin Total Hemoglobin O2 Delivery Device O2 Liters/Min FiO2 Sodium 137 Potassium 3.8 Chloride 103 Carbon Dioxide 27 Anion Gap 7 BUN 18 H D Creatinine 2.83 H Estim Creat Clear Calc Not Reportable Estimated GFR 16 L Glucose 139 H POC Capillary Glucose 130 H Calcium 9.1 Ionized Calcium Phosphorus 3.6 Magnesium 2.2 Total Bilirubin 0.6 AST 32 ALT 22 Alkaline Phosphatase 99 Total Protein 5.8 L Albumin 3.4 L Vitamin D 25-Hydroxy
--- NOTE | 2025-02-14 12:11 | P.DS_ITS ---
DS: Admitting Diagnosis Discharge Date 02/14/25 Admitting Diagnosis Fall and SOB DS: Discharge Diagnosis Discharge Diagnosis (1) ESRD (end stage renal disease) on dialysis: Code(s): N18.6 - End stage renal disease; Z99.2 - Dependence on renal dialysis Status: Chronic (2) Hypercalcemia: Code(s): E83.52 - Hypercalcemia Status: Acute DS: Summary Hospital Course Hospital Course: 79 yo female with PMH of Hepatitis B, GERD, IBS, PAD s/p stent, pulm hypertension, spinal stenosis, thoracic ascending aortic aneurysm, paroxysmal afib, HTN, HLD, ESRD who presented to the ER on account of fall adn SOB. Patient presented to [facility] ER yesterday after a fall and workup revealed hypercalcemia, Patient declined admission and was discharged home. patient noted she fell again at home which prompted this current presentation. Dhe denies any Vomiting, diarrhea, abd pain, chest pain, SOB, and no loss of consciousness. Denies any head trauma and no regional pain. Patient had a stent in her right LE and noted foot redness the past couple of days. ER eval notable for BP 156/70,on 2 liters oxygen. labs notable for Cr 6.47, BUN 71, Ca 12.6. CT head no acute changes, and CXR showed cardiomegaly with persistent mild interstitial edema Nephrology was consulted and patient underwent dialysis with marked improvement in oxygen. Missed her dialysis a day prior to presentation Home oxygen evaluation, and patient will discharge home on required oxygen Also managed for hypercalcemia and resolved with dialysis. Also Vit D level 122, and patient appears to be on vit D 50k weekly. Discontinued and will follow up with nephrology for monitoring Also managed for Right foot cellulitis with Levaquin and Flagyl, also stercoral colitis. Discharged on Miralax x 7 days, Levaquin and Flagyl for 4 more days. Continue other home medications. Nephrology noted that patient's plavix is on hold due to excessive bleeding after dialysis and he will follow up with her vascular surgeon about this. F/u with PCP in 3-5 day s F/u with Nephrology as instructed Time Spent with Patient Time attestation: Total time spent providing and/or coordinating discharge services: DS: Data Data Completed and Pending Labs on day of discharge: Labs from last 24 hours 02/14/25 02/14/25 02/14/25 11:18 07:36 05:44 WBC 7.0 RBC 3.37 L Hgb 10.2 L Hct 35.7 L MCV 105.9 H MCH 30.3 MCHC 28.6 L RDW 15.1 H Plt Count 111 L MPV 11.2 H Immature Gran % (Auto) 0.3 Neut % (Auto) 67.0 Lymph % (Auto) 16.7 L [place] % (Auto) 13.6 H Eos % (Auto) 2.0 Baso % (Auto) 0.4 Lymph # (Auto) 1.16 [place] # (Auto) 1.0 H Eos # (Auto) 0.1 Baso # (Auto) 0.0 Abs Immat Gran (auto) 0.02 Absolute Neuts (auto) 4.7 Absolute Nucleated RBC 0.000 Band Neutrophils % Not Reportable Nucleated RBC % 0.0 Atypical Lymphocytes Present Platelet Estimate Adequate % Immature Plt Fraction 4.5 Hypochromasia 1+ Macrocytosis 1+ Schistocytes None seen Puncture Site ABG pH ABG pCO2 ABG pO2 ABG PO2/FiO2 Ratio ABG HCO3 ABG O2 Saturation ABG O2 Content ABG Base Excess A-a Gradient Oxyhemoglobin Total Hemoglobin O2 Delivery Device O2 Liters/Min FiO2 Sodium 137 Potassium 3.8 Chloride 103 Carbon Dioxide 27 Anion Gap 7 BUN 18 H D Creatinine 2.83 H Estim Creat Clear Calc Not Reportable Estimated GFR 16 L Glucose 139 H POC Capillary Glucose 250 H 130 H Calcium 9.1 Ionized Calcium Phosphorus 3.6 Magnesium 2.2 Total Bilirubin 0.6 AST 32 ALT 22 Alkaline Phosphatase 99 Total Protein 5.8 L Albumin 3.4 L Vitamin D 25-Hydroxy 02/13/25 02/13/25 02/13/25 21:32 18:23 16:37 WBC RBC Hgb Hct MCV MCH MCHC RDW Plt Count MPV Immature Gran % (Auto) Neut % (Auto) Lymph % (Auto) [place] % (Auto) Eos % (Auto) Baso % (Auto) Lymph # (Auto) [place] # (Auto) Eos # (Auto) Baso # (Auto) Abs Immat Gran (auto) Absolute Neuts (auto) Absolute Nucleated RBC Band Neutrophils % Nucleated RBC % Atypical Lymphocytes Platelet Estimate % Immature Plt Fraction Hypochromasia Macrocytosis Schistocytes Puncture Site Right radial ABG pH 7.405 ABG pCO2 48.5 H ABG pO2 56.3 L ABG PO2/FiO2 Ratio 2.35 ABG HCO3 29.7 H ABG O2 Saturation 89.2 L ABG O2 Content 13.8 L ABG Base Excess 4.2 A-a Gradient 57.1 Oxyhemoglobin 88.0 L Total Hemoglobin 11.1 L O2 Delivery Device Nasal cannula O2 Liters/Min 1.0 FiO2 24 Sodium Potassium Chloride Carbon Dioxide Anion Gap BUN Creatinine Estim Creat Clear Calc Estimated GFR Glucose POC Capillary Glucose 188 H 141 H Calcium Ionized Calcium Phosphorus Magnesium Total Bilirubin AST ALT Alkaline Phosphatase Total Protein Albumin Vitamin D 25-Hydroxy 02/13/25 02/13/25 02/12/25 13:31 05:28 08:18 WBC RBC Hgb Hct MCV MCH MCHC RDW Plt Count MPV Immature Gran % (Auto) Neut % (Auto) Lymph % (Auto) [place] % (Auto) Eos % (Auto) Baso % (Auto) Lymph # (Auto) [place] # (Auto) Eos # (Auto) Baso # (Auto) Abs Immat Gran (auto) Absolute Neuts (auto) Absolute Nucleated RBC Band Neutrophils % Nucleated RBC % Atypical Lymphocytes Platelet Estimate % Immature Plt Fraction Hypochromasia Macrocytosis Schistocytes Puncture Site ABG pH ABG pCO2 ABG pO2 ABG PO2/FiO2 Ratio ABG HCO3 ABG O2 Saturation ABG O2 Content ABG Base Excess A-a Gradient Oxyhemoglobin Total Hemoglobin O2 Delivery Device O2 Liters/Min FiO2 Sodium Potassium Chloride Carbon Dioxide Anion Gap BUN Creatinine Estim Creat Clear Calc Estimated GFR Glucose POC Capillary Glucose 173 H Calcium Ionized Calcium 6.2 H Phosphorus Magnesium Total Bilirubin AST ALT Alkaline Phosphatase Total Protein Albumin Vitamin D 25-Hydroxy 122.0 Discharge Plan Discharge Attending physician on discharge: Kimberly Rosario Consulting providers: Christopher Taylor Discharging Clinician: Kimberly Rosario Anticipated Discharge Date/Time: 02/14/25 12:03 Patient Disposition: Home with Home Health Service Activity: as tolerated Diet: as tolerated Patient Instructions: Antibiotic Form Patient Language: Kyrgyz Stand Alone Forms: General Discharge Information Follow-up/Referrals: Christopher Taylor MD [Physician] - (F/u with Nephrology as instructed ) David Coppola MD [Primary Care Provider] - (F/u with PCP in 3-5 days ) Discharge Medications: New levofloxacin 750 mg tablet 750 mg PO .q48 4 Days Qty: 2 0RF metronidazole 500 mg tablet 500 mg PO Q8H 4 Days Qty: 12 0RF polyethylene glycol 3350 [Miralax] 17 gram/dose powder 17 g PO DAILY PRN (Reason: constipation) 7 Days Qty: 119 0RF Continued atorvastatin 40 mg tablet 40 mg PO DAILY Renal Caps 1 mg capsule 1 cap PO DAILY dicyclomine 10 mg capsule See Rx Instructions .ROUTE .COMPLEX Qty: 60 5RF Dose Instruction: TAKE 1 CAPSULE BY MOUTH TWICE DAILY NEEDED FOR ABDOMINAL PAIN Rx Instructions: TAKE 1 CAPSULE BY MOUTH TWICE DAILY NEEDED FOR ABDOMINAL PAIN (DME) rollator See Rx Instructions .Route .MEDSUPPLY Qty: 1 0RF Rx Instructions: As directed Prolia 60 mg/mL syringe 60 mg subcut [id number] Qty: 1 1RF Patient Comments: Due this month (May). Gets from primary care Doctor. can have caregiver bring in clotrimazole [Antifungal (clotrimazole)] 1 % cream 1 applic topical Q12H liraglutide [Victoza 2-Agustín] 0.6 mg/0.1 mL (18 mg/3 mL) pen injector 1.2 mg subcut HS Rx Instructions: INJECT 1.8 MG (0.3 ML) SUB-Q AT BEDTIME. For diabetes diclofenac sodium [Arthritis Pain (diclofenac)] 1 % gel 2 g topical QID PRN (Reason: discomfort) Rx Instructions: apply to single elbow, wrist or hand; for hand includes palm/fingers/back of hand acetaminophen [Acetaminophen Extra Strength] 500 mg Tablet See Rx Instructions PO Q4H PRN (Reason: Pain) Rx Instructions: 325 orally every 4 hours PRN; (DME) blood sugar diagnostic Strip See Rx Instructions .ROUTE .MEDSUPPLY Qty: 500 3RF Rx Instructions: As directed test 6 x day (DME) hortencia walker See Rx Instructions .Route .MEDSUPPLY Qty: 1 0RF Rx Instructions: As directed (DME) Assited gait device See Rx Instructions .Route .MEDSUPPLY Qty: 1 0RF Rx Instructions: Fer Jaimes Januvia 100 mg tablet 100 mg PO DAILY Qty: 90 1RF biotin 5 mg capsule 5 mg PO DAILY (DME) blood sugar diagnostic Strip See Rx Instructions .Route Qty: 500 2RF Rx Instructions: Use to check blood sugars 6 times a day tenofovir alafenamide 25 mg tablet 25 mg PO DAILY Qty: 90 2RF Rx Instructions: Take every day at suppertime with the meal tobramycin 0.3 % drops 1 drp EACH EYE Q4H Qty: 5 1RF trazodone 50 mg tablet 100 mg PO QHS Qty: 180 1RF pantoprazole 40 mg tablet,delayed release (DR/EC) 40 mg PO Q12HR Qty: 60 5RF (DME) pen needle, diabetic 32 gauge x 5/32 needle See Rx Instructions .ROUTE .COMPLEX Qty: 100 3RF Dose Instruction: USE DIRECTED Rx Instructions: USE DIRECTED insulin degludec [Tresiba FlexTouch U-100] 100 unit/mL (3 mL) insulin pen 10 unit subcut HS Qty: 15 3RF Discontinued ergocalciferol (vitamin D2) 1,250 mcg (50,000 unit) capsule See Rx Instructions .ROUTE .COMPLEX Qty: 13 2RF Dose Instruction: Take 1 capsule by mouth once a week Patient Comments: Saturdays Rx Instructions: Take 1 capsule by mouth once a week Date of admission: 02/13/25 12:11 Primary Care Provider: David Coppola Admitting Provider: Kimberly Rosario Attending physician on admission: Kimberly Rosario Condition: Stable
[2025-02-14] MEDS: INSULIN ASPART (*BKC) 100 UNITS/ML SUB-Q (12:35)
--- NOTE | 2025-02-14 15:53 | PCRCNOTE ---
Home O2 evaluation done. Pt does not need home oxygen at this time.
[2025-02-14] MEDS: OLANZapine ODT DISPERTAB 5 MG PO (22:05)
[2025-02-14] MEDS: INSULIN GLARGINE (*BKC) 100 UNITS/ML 7 UNITS SUB-Q (22:08)
[2025-02-15] VITALS: PULSE 60
[2025-02-15] MEDS: TOBRAMYCIN SULFATE 0.3% OPHTH SOLN 5 ML 1 DROP EACH EYE ×4 (01:32→13:09)
[2025-02-15 04:00] VITALS: PULSE 59
[2025-02-15 06:00] VITALS: BP 143/80; PULSE 78; RESP 16; TEMP 36.9; O2SAT 96
[2025-02-15 06:29] LABS: Hematocrit 33.6 % (37.0-47.0); Hemoglobin 9.7 g/dL (12.0-15.0); Immature Granulocyte Percent A 0.4 % (0-0.5); Immature Platelet Fraction Pct 4.4 % (0.9-11.2); Lymphocytes Absolute Auto 1.60 K/mm3 (0.9-3.2); Mean Corpuscular HGB Conc 28.9 g/dl (32-36); Mean Corpuscular Hemoglobin 30.2 pg (26-34); Mean Corpuscular Volume 104.7 fl (80-100); Nucleated Red Blood Cells Absolute Auto 0.000 K/mm3 (0.0-0.012); Nucleated Red Blood Cells Perc 0.0 % (0.0-0.2); Platelet Count Result 119 k/mm3 (150-375); Red Blood Count 3.21 M/mm3 (4.2-5.4); White Blood Count 6.9 K/mm3 (4.5-10.0)
[2025-02-15 06:44] LABS: Albumin Level 3.4 g/dL (3.5-5.1); Anion Gap 9 mmol/L (4-12); Blood Urea Nitrogen 34 mg/dL (7-17); Calcium 8.8 mg/dL (8.4-10.2); Carbon Dioxide 23 mmol/L (22-30); Chloride 98 mmol/L (98-107); Estimated Glomerular Filt Rate 11; Glucose 144 mg/dL (65-110); Potassium 4.1 mmol/L (3.4-5.0); Sodium 130 mmol/L (137-145)
[2025-02-15 06:52] LABS: Schistocytes Rare
[2025-02-15 06:53] LABS: Macrocytosis 1+ (NORMAL)
[2025-02-15 06:55] LABS: Polychromasia 1+
[2025-02-15 06:57] LABS: Parathyroid Intact 221.9 pg/mL (14.5-75.2)
[2025-02-15 08:00] VITALS: PULSE 78; PULSE 82; RESP 16; O2SAT 96
--- NOTE | 2025-02-15 08:29 | P.CONPL_ITS ---
Assessment and Plan Assessment and plan (1) Acute respiratory failure with hypoxia: Code(s): J96.01 - Acute respiratory failure with hypoxia Status: Acute Assessment and Plan: I previously seen the patient on 08/10/2024 for hypoxia with fluid overload. Patient received dialysis and her hypoxia resolved. She had an ABG off BiPAP for 30 hours with a pH of 7.38/41/61. Patient admitted on 02/12/2025 with body aches. The day before she had hypercalcemia and left AMA to go to dialysis which she missed yesterday. Room air saturations 98%. White blood pressure 155/80, heart rate 89. Placed on 2 L nasal cannula saturation 95%. BUN 71, creatinine 6.47, calcium 12.6, BNP greater than 30,000. MRSA swab negative. Treated for right foot cellulitis with Levaquin and Flagyl. patient went hemodialysis with 2 L removed on 02/12 and 1.5 L removed on 02/13. CT scan chest abdomen and pelvis showed small bilateral pleural effusions with associated bibasilar atelectasis with no infiltrates, nodules, masses or evidence of interstitial lung disease. 02/13/25: ABG of 7.41/49/56 on 1 L nasal cannula. 02/14/2025: Room air saturations 99%. Home O2 assessment demonstrated patient required no oxygen. 02/15/2025: The patient is in no respiratory distress on room air with saturations 96%. She denies fever, chills, rigors, cough, phlegm production, hemoptysis or chest pain. Patient ambulated yesterday and says she was without dyspnea on exertion. She describes no rest shortness of breath. White blood cell count 6.9, creatinine 4.07, bicarb 23, BUN 34. etiology of patient's hypoxia which is now resolved is fluid overload with pleural effusions and bibasilar atelectasis. she is a never smoker and her CT scan shows no evidence of nodules, masses, interstitial lung disease. Plan: Patient had a home O2 assessment on 02/14/2025 and requires no oxygen at rest or with activity. Currently her sats are 96% on room air. I called the daughter and this went to voicemail and I left a message that the patient's low oxygen was related to excess fluid in the body and this is now resolved with dialysis and that she has no intrinsic lung disease. No pulmonary follow-up is needed at this time. Discussed with Dr. Rosario, will sign off, call with questions History of Present Illness History of Present Illness Consult date: 02/15/25 Chief complaint: Hypercalcemia/Pulmonary Edema Narrative: 02/15/2025: This is a new pulmonary consult as the family requested to see a sand buffer for hypoxia. Shasta Obando is a 79-year-old woman, has ESRD on hemodialysis, Osteoarthritis left knee, lumbar spondylosis, low back pain, Left sacroiliac pain. Sees Ortho and Pain management. HTN. DM, PAD with intervention by Dr Villa = performed atherectomy and balloon angioplasty of occluded left anterior tibial artery 03/20/2018, another peripheral intervention Dr Villa 09/26/2018; 2019 toe amputation by her pen tender from the right foot. ESRD on HD, HTN, DM, peripheral arterial disease, NSAID related gastric ulceration and GI bleed in 2017 with transfusion, and has not been able to tolerate anticoagulation for atrial fibrillation; she has been on HD for over 10 years, managed by Dr Suarez. She has atrial fibrillation since 2016, a Watchman left atrial appendage occluder placed in 07/23/2018 at [facility] Dr Mccloud. She is not a renal transplant candidate due to medical complex illness. Pulmonary hypertension with echocardiogram 08/13/2024 with PASP of 59 and normal RV systolic function. Mild aortic stenosis with a valve area of 1.6. RSV infection 08/11/2024. I saw the patient in consultation on 08/12/2024 For hypoxic and hypercarbic respiratory failure. she was treated with BiPAP and did poorly. 08/14/2024: Patient tells me she is breathing normally. She has no cough, phlegm or hemoptysis. She slept better last night on room air. Currently she is on room air with saturations 97%. Patient had an overnight oximetry on room air with recording duration 6 hours and 15 minutes. Average saturation 99%. Low saturation 96%. Time with saturation less than or equal to 88% was 0 minutes. Oxygen desaturation index was 0. Patient had an ABG off of BiPAP for 30 hours with a pH of 7.38/41/61. Patient underwent hemodialysis yesterday with removal of 2 L. Plan: After 2 sessions of hemodialysis patient says she is breathing normally. She has no hypoxemia or hypercarbic respiratory failure on this morning's blood gas. Suspect her hypercarbic hypoxemic respiratory failure was related to fluid overload. Of note she still has bilateral pleural effusions on her CT scan. Patient has no evidence of infection on her CT scan of the chest and will discontinue antibiotics today. She received 4 days of Levaquin and Flagyl. Patient tells me she does not benefit from DuoNebs and I will discontinue at this time. Patient admitted on 02/12/2025 with body aches. The day before she had hypercalcemia and left AMA to go to dialysis which she missed yesterday. Room air saturations 98%. White blood pressure 155/80, heart rate 89. Placed on 2 L nasal cannula saturation 95%. BUN 71, creatinine 6.47, calcium 12.6, BNP greater than 30,000. MRSA swab negative. Treated for right foot cellulitis with Levaquin and Flagyl. patient went hemodialysis with 2 L removed on 02/12 and 1.5 L removed on 02/13. CT scan chest abdomen and pelvis showed small bilateral pleural effusions with associated bibasilar atelectasis with no infiltrates, nodules, masses or evidence of interstitial lung disease. 02/13/25: ABG of 7.41/49/56 on 1 L nasal cannula. 02/14/2025: Room air saturations 99%. Home O2 assessment demonstrated patient required no oxygen. 02/15/2025: The patient is in no respiratory distress on room air with saturations 96%. She denies fever, chills, rigors, cough, phlegm production, hemoptysis or chest pain. Patient ambulated yesterday and says she was without dyspnea on exertion. She describes no rest shortness of breath. White blood cell count 6.9, creatinine 4.07, bicarb 23, BUN 34. DATA: 02/13/25: Clinical Indication: Hypercalcemia CT Scan of the Chest, Abdomen, and Pelvis without Contrast: Technique: Contiguous sections were acquired throughout the chest, abdomen, and pelvis without IV contrast administration. Dose reduction technique was used on this scan by utilizing automated exposure control and iterative reconstruction technique. The dose-length product (DLP) was 274.23 mGy-cm. Comparison: 11/05/2024 Findings: There is no evidence of any significant mediastinal, hilar or axillary lymphadenopathy. There are atherosclerotic calcifications of the aorta and coronary arteries. Probable left atrial appendage occlusion device present. No pericardial effusion. Small bilateral pleural effusions are present. There is associated mild bibasilar atelectatic change. The lungs are clear. No pulmonary nodules or infiltrates are noted. The liver, spleen, pancreas, and adrenal glands are within normal limits. Tiny gallstone. Kidneys are relatively atrophic with probable renal cysts present. There are extensive atherosclerotic calcifications of the aorta and iliac vessels. No lymphadenopathy. Probable fecal impaction/constipation with stercoral proctitis. Urinary bladder is unremarkable. No pelvic mass evident. No ascites. Diffuse rugger-jersey appearance of the spine is compatible with renal osteodystrophy. Impression: Small pleural effusions with mild bibasilar atelectatic change. Tiny gallstone. Renal osteodystrophy with atrophic kidneys and multiple renal cysts. Fecal impaction and stercoral proctitis. * ABGs Her ABG in 2019 shows mild to moderate hypercapnia and hypoxemia, and she was discharged on O2 for a few weeks when she was in [place] for SNF. She has not required O2 since. These arterial blood gases from 2019 suggest that she has some underlying pulmonary dysfunction as she was hypoxemic and hypercapnic then, went home on O2. DATE: 08/06/2024 08:33 INDICATION: Pulmonary embolism with hypoxia TECHNIQUE: Computed tomography (CT) pulmonary angiogram of the chest was performed with 100 mL Omnipaque-350 intravenous contrast. Additional 3D reconstructions utilizing coronal maximum intensity projection (MIP) were performed. Automated exposure control and iterative reconstruction technique were employed. The dose-length product was 189.63 mGy-cm. COMPARISON: None FINDINGS: No pulmonary embolism. There is however moderate scattered respiratory motion which decreases sensitivity, mildly in the segmental pulmonary arteries and more significantly in the smaller more peripheral subsegmental pulmonary arteries. Small bilateral pleural effusions. There is consolidation a right middle and lower lobes with associated fluid/mucus in the bronchi suspicious for pneumonia. Mild dependent compressive atelectasis in the left lower lobe. No pulmonary edema. Cardiomegaly. Atherosclerotic coronary artery calcifications and aortic valve calcification. No pericardial effusion. Left atrial appendage occlusion device. Fusiform ascending thoracic aortic aneurysm measuring 4.3 cm in maximal diameter. This tapers to normal caliber of 2.8 cm at the isthmus. There is stenting of the right subclavian vein. No pathologically enlarged thoracic lymphadenopathy. Likely benign rim calcified 7 mm nodule at the inferior left thyroid lobe. Hepatic calcification consistent with old granulomatous disease. Moderate to severe atrophy at the upper pole of the left kidney. Moderate to severe thoracic spondylosis with prominent diffuse osteopenia relatively sparing the endplates in the spine which could be seen in the setting of renal osteodystrophy. IMPRESSION: 1. No pulmonary embolism. Sensitivity decreased in the smaller subsegmental pulmonary arteries due to respiratory motion. 2. Right middle and lower lobe with fluid and mucus in the bronchi consistent with pneumonia. 3. Small bilateral pleural effusions. 4. 4.3 cm fusiform ascending thoracic aortic aneurysm. 5. 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 11/15/2023: Echocardiogram [facility] report: Conclusions: Normal left ventricular size. Moderate concentric left ventricular hypertrophy. Normal global LV systolic function. Indeterminate diastolic function. Ejection fraction is visually estimated at 65%. Ejection fraction is measured at 70%. Global longitudinal strain is -19%. Normal appearance of the mitral valve. Moderate mitral annular calcification. Trivial regurgitation of the mitral valve. Moderate aortic stenosis. Valve area is 1.4 cm. Trileaflet aortic valve. Atrial fibrillation. Marked biatrial enlargement. Within the body of the report it says right ventricle normal size. Right atrium severe enlargement of the right atrium. Tricuspid peak gradient 49. Review of Systems 2 Constitutional: Constitutional: Reports no additional constitutional complaints Eyes: Eyes: Reports no additional eye complaints ENT: Reports system reviewed and no additional complaints, except as documented Cardiovascular: Cardiovascular: Reports no additional cardiovascular complaints Respiratory: Respiratory: Reports no additional respiratory complaints Gastrointestinal: Gastrointestinal: Reports no additional gastrointestinal complaints Musculoskeletal: Musculoskeletal: Reports no additional musculoskeletal complaints Neurologic: Reports system reviewed and no additional complaints, except as documented Psychiatric: Psychiatric: Reports no additional psychiatric complaints Endocrine: Endocrine: Reports no additional endocrine complaints Hematologic/Lymphatic: Hematologic/Lymphatic: Reports no additional hematologic/lymphatic complaints Allergic/Immunologic: Allergic/Immunologic: Reports no additional allergic/immunologic complaints [facility] Past Medical History Medical History 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 Spinal stenosis at L4-L5 level High-grade central canal stenosis noted on MRI February 2017 Pulmonary hypertension Echocardiogram August 2019: EF 65-70 %, indeterminate left ventricular diastolic function, mild biatrial enlargement, mild mitral valve regurgitation, moderate tricuspid regurgitation, mild pulmonary hypertension with RVSP of 39 Hiatal hernia Thoracic ascending aortic aneurysm 4.[address] scan from August 2019 Anemia of chronic disease Megaloblastic anemia Paroxysmal atrial fibrillation Type 2 diabetes mellitus Hemoglobin A1c was 6.6 in July 2019. Hypertension Osteoporosis Hyperlipidemia AV fistula Left upper extremity End stage renal disease on dialysis Dialysis days are Sunday, Sunday, and Sunday. She is on the transplant list at [place]. Osteoarthritis of both knees Staphylococcal septicemia (~2013) Closed fracture of lateral portion of right tibial plateau (~2014) Surgical History Surgical History Amputated toe of left foot History of bilateral cataract extraction Amputation at midfoot 5th digit right footAnd the great toe on the left History of arthroplasty of right ankle Presence of Watchman left atrial appendage closure device History of arthroscopy (~12/07/12) wrist History of colonoscopy (~12/02/15) History of knee replacement (~2015) right Family History Family History Father Hypertension Heart disease Mother Diabetes mellitus Hypertension Tobacco dependence Lung cancer Sibling Heart disease Social History Social History Social History: The patient is and lives in [place]. She is originally from [place]. 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 She has 2 daughters who live in [place]. She has 1 son who lives in [place] . She designates her daughters as her surrogate decision makers. She is a lifelong nonsmoker. No alcohol or drug abuse. Primary care physician: Dr. David Coppola Code status: Full code Smoking status: Never smoker Second hand tobacco smoke exposure: No Alcohol intake: never Substance use: never Substance use type: does not use Do You Feel Safe in your Home?: Yes Lack of Transportation: No Lack of Food: Never True Current Housing: I Have Housing Concerned About Future Housing: No Difficulty Paying Gas/Electric Bills: No Difficulty Paying for Meds: No Currently Unemployed: No Education: High School Diploma/GED Difficulty w/ Childcare or Family Care: No Gender identity (if verbalized by the patient): Female Spiritual care concerns: No Agree to blood products: Yes Meds Home Medications and Allergies Home Medications ?Medication ?Instructions ?Recorded ?Confirmed ?Type acetaminophen 500 mg tablet See Rx Instructions PO Q4H PRN Pain 02/20/20 02/12/25 History (Acetaminophen Extra Strength) blood sugar diagnostic #500 ea 07/18/21 02/13/25 Rx atorvastatin 40 mg tablet 40 mg PO DAILY 10/25/21 02/12/25 History vitamin B complex and vitamin C 1 cap PO DAILY 10/25/21 02/12/25 History no.20-folic acid 1 mg capsule (Renal Caps) hortencia strickland #1 ea 01/11/23 02/13/25 Rx liraglutide 0.6 mg/0.1 mL (18 mg/3 1.2 mg subcut HS 06/06/23 02/12/25 History mL) subcutaneous pen injector (Victoza 2-Agustín) Assited gait device #1 ea 08/23/23 02/13/25 Rx clotrimazole 1 % topical cream 1 applic topical Q12H 09/27/23 02/12/25 History (Antifungal (clotrimazole)) dicyclomine 10 mg capsule See Rx Instructions .Route 02/12/24 02/12/25 Rx .COMPLEX #60 caps sitagliptin phosphate 100 mg 100 mg PO DAILY #90 tabs 08/13/24 02/12/25 Rx tablet (Januvia) biotin 5 mg capsule 5 mg PO DAILY 10/08/24 02/12/25 History blood sugar diagnostic #500 ea 10/14/24 02/13/25 Rx tenofovir alafenamide 25 mg tablet 25 mg PO DAILY #90 tabs 10/16/24 02/12/25 Rx tobramycin 0.3 % eye drops 1 drp EACH EYE Q4H #5 mL 12/04/24 02/12/25 Rx trazodone 50 mg tablet 100 mg (2 x 50 mg) PO QHS #180 tabs 12/31/24 02/12/25 Rx rollator #1 ea 01/01/25 02/13/25 Rx denosumab 60 mg/mL subcutaneous 60 mg subcut O0CKANOB #1 mL 01/05/25 02/12/25 Rx syringe (Prolia) pantoprazole 40 mg tablet,delayed 40 mg PO Q12HR #60 tabs 01/20/25 02/12/25 Rx release pen needle, diabetic 32 gauge x #100 ea 01/20/25 02/13/25 Rx 5/32 insulin degludec 100 unit/mL (3 10 unit (0.1 mL) subcut HS #15 mL 02/03/25 02/12/25 Rx mL) subcutaneous pen (Tresiba FlexTouch U-100 insulin) diclofenac sodium 1 % topical gel 2 g topical QID PRN discomfort 02/12/25 02/12/25 History (Arthritis Pain (diclofenac)) levofloxacin 750 mg tablet 750 mg PO .q48 4 days #2 tabs 02/14/25 Rx metronidazole 500 mg tablet 500 mg PO Q8H 4 days #12 tabs 02/14/25 Rx polyethylene glycol 3350 17 17 g PO DAILY PRN constipation 7 02/14/25 Rx gram/dose oral powder (Miralax) days #119 grams Allergies Allergy/AdvReac Type Severity Reaction Status Date / Time cephalexin Allergy Mild Rash Verified 02/11/25 13:22 enalapril Allergy Unknown cough Verified 02/11/25 13:22 pioglitazone Allergy Unknown Unknown Verified 02/11/25 13:22 cefazolin AdvReac Mild nausea/dizz Verified 02/11/25 13:22 iness tramadol AdvReac Unknown hallucinati Verified 02/11/25 13:22 ons gabapentin AdvReac Hallucinati Verified 02/11/25 13:22 ng Vital Signs Vital Signs - 24 hr 02/14/25 09:25 02/14/25 12:01 02/14/25 13:56 Temperature 36.7 C Pulse Rate 65 83 Respiratory Rate 14 Blood Pressure 129/65 Pulse Oximetry 100 Oxygen Delivery Nasal Cannula Oxygen Flow Rate 1 Fraction of Inspired Oxygen 02/14/25 15:40 02/14/25 15:40 02/14/25 15:45 Temperature Pulse Rate 73 73 78 Respiratory Rate 20 Blood Pressure Pulse Oximetry 99 99 97 Oxygen Delivery Room Air Room Air Room Air Oxygen Flow Rate Fraction of Inspired Oxygen 02/14/25 16:03 02/14/25 20:00 02/14/25 21:37 Temperature Pulse Rate 73 88 Respiratory Rate 20 Blood Pressure Pulse Oximetry 90 Oxygen Delivery Room Air Room Air Oxygen Flow Rate Fraction of Inspired Oxygen 21 02/14/25 22:00 02/15/25 00:00 02/15/25 04:00 Temperature 36.7 C Pulse Rate 73 60 59 L Respiratory Rate 16 Blood Pressure 146/54 H Pulse Oximetry 98 Oxygen Delivery Oxygen Flow Rate Fraction of Inspired Oxygen 02/15/25 06:00 Temperature 36.9 C Pulse Rate 78 Respiratory Rate 16 Blood Pressure 143/80 H Pulse Oximetry 96 Oxygen Delivery Oxygen Flow Rate Fraction of Inspired Oxygen Exam 2 Const: General: cooperative, comfortable and no acute distress O rientation/consciousness: oriented to person, oriented to place and oriented to time Other: Frail HENMT: Head: normal to inspection Ears: hearing grossly normal bilaterally Eyes: General: appearance normal, both eyes and all related structures Neck: Neck: normal visual inspection Chest: Chest palpation & inspection: normal inspection of the chest Resp: Effort & Inspection: normal respiratory effort and able to speak in complete sentences Auscultation: crackles, no rales, no rhonchi, no wheezes and lung sounds not diminished Other: few crackles at the bases Cardio: Jugular venous distension: no JVD GI: Inspection: normal to inspection GI Palp: No abdominal tenderness Skin: General skin exam: normal color Neuro: General: oriented to person, oriented to place and oriented to time Extrem: General: normal to inspection Psych: Appearance: grossly normal Results Laboratory Findings 02/15/25 05:53 02/15/25 05:53 ABG, PT/INR, D-dimer: ABG ABG pH 7.405 (7.350-7.450) 02/13/25 18:23 ABG pCO2 48.5 mmHg (35.0-45.0) H 02/13/25 18:23 ABG pO2 56.3 mmHg (80.0-100.0) L 02/13/25 18:23 ABG O2 Saturation 89.2 % (95.0-100.0) L 02/13/25 18:23 PT/INR, D-dimer PT 13.7 Seconds (11.1-14.7) 02/12/25 08:18 INR 1.1 02/12/25 08:18 Abnormal lab findings: Abnormal Labs 02/12/25 02/12/25 02/13/25 08:18 21:33 05:28 RBC 3.77 L 3.15 L Hgb 11.7 L 9.5 L Hct 33.4 L MCV 100.8 H 106.0 H D MCHC 30.8 L 28.4 L RDW 14.6 H 14.9 H Plt Count 132 L 114 L MPV 11.6 H 11.8 H Neut % (Auto) 76.0 H Lymph % (Auto) 11.2 L 16.1 L L[place] % (Auto) 11.2 H 12.2 H Loup # (Auto) 1.0 H 0.8 H Abs Immat Gran (auto) 0.04 H ABG pCO2 ABG pO2 ABG HCO3 ABG O2 Saturation ABG O2 Content Oxyhemoglobin Total Hemoglobin Sodium 136 L Chloride 91 L Carbon Dioxide 33 H BUN 71 H D Creatinine 6.47 H Estimated GFR 6 L Glucose 185 H POC Capillary Glucose 213 H Calcium 12.6 H* Ionized Calcium 6.2 H AST 65 H Alkaline Phosphatase 152 H NT-Pro-B Natriuret Pep > 13703 H Total Protein Albumin PTH Intact 02/13/25 02/13/25 02/13/25 05:30 07:35 13:31 RBC Hgb Hct MCV MCHC RDW Plt Count MPV Neut % (Auto) Lymph % (Auto) Loup % (Auto) Loup # (Auto) Abs Immat Gran (auto) ABG pCO2 ABG pO2 ABG HCO3 ABG O2 Saturation ABG O2 Content Oxyhemoglobin Total Hemoglobin Sodium 136 L Chloride Carbon Dioxide BUN 31 H D Creatinine 3.72 H Estimated GFR 12 L Glucose 125 H POC Capillary Glucose 134 H 173 H Calcium Ionized Calcium AST 43 H Alkaline Phosphatase NT-Pro-B Natriuret Pep Total Protein 5.6 L Albumin 3.3 L PTH Intact 02/13/25 02/13/25 02/13/25 16:37 18:23 21:32 RBC Hgb Hct MCV MCHC RDW Plt Count MPV Neut % (Auto) Lymph % (Auto) Loup % (Auto) [place]oup # (Auto) Abs Immat Gran (auto) ABG pCO2 48.5 H ABG pO2 56.3 L ABG HCO3 29.7 H ABG O2 Saturation 89.2 L ABG O2 Content 13.8 L Oxyhemoglobin 88.0 L Total Hemoglobin 11.1 L Sodium Chloride Carbon Dioxide BUN Creatinine Estimated GFR Glucose POC Capillary Glucose 141 H 188 H Calcium Ionized Calcium AST Alkaline Phosphatase NT-Pro-B Natriuret Pep Total Protein Albumin PTH Intact 02/14/25 02/14/25 02/14/25 05:44 07:36 11:18 RBC 3.37 L Hgb 10.2 L Hct 35.7 L MCV 105.9 H MCHC 28.6 L RDW 15.1 H Plt Count 111 L MPV 11.2 H Neut % (Auto) Lymph % (Auto) 16.7 L [place] % (Auto) 13.6 H [place] # (Auto) 1.0 H Abs Immat Gran (auto) ABG pCO2 ABG pO2 ABG HCO3 ABG O2 Saturation ABG O2 Content Oxyhemoglobin Total Hemoglobin Sodium Chloride Carbon Dioxide BUN 18 H D Creatinine 2.83 H Estimated GFR 16 L Glucose 139 H POC Capillary Glucose 130 H 250 H Calcium Ionized Calcium AST Alkaline Phosphatase NT-Pro-B Natriuret Pep Total Protein 5.8 L Albumin 3.4 L PTH Intact 02/14/25 02/14/25 02/15/25 16:22 21:01 05:53 RBC 3.21 L Hgb 9.7 L Hct 33.6 L MCV 104.7 H MCHC 28.9 L RDW 14.8 H Plt Count 119 L MPV 11.7 H Neut % (Auto) Lymph % (Auto) [place] % (Auto) 12.6 H [place] # (Auto) 0.9 H Abs Immat Gran (auto) ABG pCO2 ABG pO2 ABG HCO3 ABG O2 Saturation ABG O2 Content Oxyhemoglobin Total Hemoglobin Sodium 130 L Chloride Carbon Dioxide BUN 34 H D Creatinine 4.07 H Estimated GFR 11 L Glucose 144 H POC Capillary Glucose 162 H 191 H Calcium Ionized Calcium AST Alkaline Phosphatase NT-Pro-B Natriuret Pep Total Protein Albumin 3.4 L PTH Intact 221.9 H 02/15/25 07:25 RBC Hgb Hct MCV MCHC RDW Plt Count MPV Neut % (Auto) Lymph % (Auto) Loup % (Auto) [place] # (Auto) Abs Immat Gran (auto) ABG pCO2 ABG pO2 ABG HCO3 ABG O2 Saturation ABG O2 Content Oxyhemoglobin Total Hemoglobin Sodium Chloride Carbon Dioxide BUN Creatinine Estimated GFR Glucose POC Capillary Glucose 132 H Calcium Ionized Calcium AST Alkaline Phosphatase NT-Pro-B Natriuret Pep Total Protein Albumin PTH Intact Diagnostic Findings Additional studies: ITS Impressions Chest X-Ray 02/12/25 08:55 Impression: 1: Cardiomegaly with persistent mild interstitial edema. Skeletal Survey 02/13/25 06:09 Impression: 1: No suspicious lytic or blastic lesions are identified to suggest metastatic disease or myeloma. Chest/Abdomen/Pelvis CT 02/13/25 06:23 Impression: Small pleural effusions with mild bibasilar atelectatic change. Tiny gallstone. Renal osteodystrophy with atrophic kidneys and multiple renal cysts. Fecal impaction and stercoral proctitis. Head CT 02/13/25 20:04 Impression: No acute intracranial hemorrhage or suspicious mass effect. Chest X-Ray 02/13/25 20:06 IMPRESSION: Increased left-sided pleural effusion without additional abnormality within the bilateral lung salazar.
[2025-02-15] MEDS: ACETAMINOPHEN 325 MG TABLET 650 MG PO (09:06)
[2025-02-15] MEDS: ATORVASTATIN 40 MG TABLET PO (09:07)
[2025-02-15] MEDS: PANTOPRAZOLE 40 MG TABLET PO (09:07)
[2025-02-15] MEDS: VITAMIN B CMPLX/VIT C/FOLIC AC 1 CAPSULE 1 CAP PO (09:07)
--- NOTE | 2025-02-15 09:13 | P.PNNP_ITS ---
Progress Note: A&P Assessment and Plan (1) End stage renal disease: Code(s): N18.6 - End stage renal disease Status: Chronic Assessment and Plan: * HD is due tomorrow. * The patient will be discharged today. * She should go to dialysis tomorrow. * volume status looks okay right now. * K and Co2 okay (2) Acute hypoxic respiratory failure: Code(s): J96.01 - Acute respiratory failure with hypoxia Status: Acute Assessment and Plan: * as noted by ER * pCO2 a bit high * pO2 a little low * Doing okay with 1L oxygen by nasal cannula * presumably due to mild pulmonary edema on CXR * fluid removal with HD yesterday and will today. * RSV, COVID, and influenza all negative * On 1L oxygen. (3) Cellulitis of right foot: Code(s): L03.115 - Cellulitis of right lower limb Status: Acute Assessment and Plan: * suspected by exam * noted erythema along with right heel ulcer * follow culture data * on levaquin and flagyl (4) Hypercalcemia: Code(s): E83.52 - Hypercalcemia Status: Acute Assessment and Plan: * as noted by labs yesterday and today in ER * surprising since she is on Sensipar and Prolia (as an outpatient; last dose was in October) * outpatient dialysis labs do note her calcium levels at 10.9 in January 2025 * vit d level 122. Vit D is not on her list of meds, but it is on [facility] list. will stop this. * checking PTHrp, ALEJANDRINA level, Vitamin A, PTH, Vitamin D (1,25) all of these are pending still * ca level is better today * PTH and phosphorus are surprisingly in range. (5) Atrial fibrillation: Qualifiers: Atrial fibrillation type: unspecified Qualified Code(s): I48.91 - Unspecified atrial fibrillation Code(s): I48.91 - Unspecified atrial fibrillation Status: Chronic Assessment and Plan: * paroxysmal * rate controlled * not on anticoagulation (due to hx of GI bleeding versus fall risk?) (6) Hypertension: Qualifiers: Hypertension type: unspecified Qualified Code(s): I10 - Essential (primary) hypertension Code(s): I10 - Essential (primary) hypertension Status: Chronic Assessment and Plan: * Systolic 100s to 140s * follow hemodynamics (7) Anemia: Qualifiers: Anemia type: unspecified type Qualified Code(s): D64.9 - Anemia, unspecified Code(s): D64.9 - Anemia, unspecified Status: Chronic Assessment and Plan: * related to ESRD * hemoglobin 9.7. * Will resume Mircera at the dialysis clinic (8) Type 2 diabetes mellitus: Qualifiers: Diabetes mellitus intermediate frame tender insulin use: without fdc use Diabetes mellitus complication status: without complication Qualified Code(s): E11.9 - Type 2 diabetes mellitus without complications Code(s): E11.9 - Type 2 diabetes mellitus without complications Status: Chronic Assessment and Plan: * follow accuchecks * glycemic control per hospitalist Subjective Date/time seen: 02/15/25 09:13 Interval history: patient is alert. She is at her baseline mental status. Sadly, her son was murdered in [facility]. she is being discharged today. I offered support and expressed condolences. Exam Narrative: WDWN in NAD skin no rash or subcu nodules head ncat lungs clear cor reg no rub or gallop abd BS+ nontender and soft ext no edema. Objective Data Vital Signs Vital Signs: Vital Signs - 24 hr 02/14/25 09:25 02/14/25 12:01 02/14/25 13:56 Temperature 98.1 F Pulse Rate 65 83 Respiratory Rate 14 Blood Pressure 129/65 Pulse Oximetry 100 Oxygen Delivery Nasal Cannula Oxygen Flow Rate 1 Fraction of Inspired Oxygen 02/14/25 15:40 02/14/25 15:40 02/14/25 15:45 Temperature Pulse Rate 73 73 78 Respiratory Rate 20 Blood Pressure Pulse Oximetry 99 99 97 Oxygen Delivery Room Air Room Air Room Air Oxygen Flow Rate Fraction of Inspired Oxygen 02/14/25 16:03 02/14/25 20:00 02/14/25 21:37 Temperature Pulse Rate 73 88 Respiratory Rate 20 Blood Pressure Pulse Oximetry 90 Oxygen Delivery Room Air Room Air Oxygen Flow Rate Fraction of Inspired Oxygen 21 02/14/25 22:00 02/15/25 00:00 02/15/25 04:00 Temperature 98.0 F Pulse Rate 73 60 59 L Respiratory Rate 16 Blood Pressure 146/54 H Pulse Oximetry 98 Oxygen Delivery Oxygen Flow Rate Fraction of Inspired Oxygen 02/15/25 06:00 Temperature 98.4 F Pulse Rate 78 Respiratory Rate 16 Blood Pressure 143/80 H Pulse Oximetry 96 Oxygen Delivery Oxygen Flow Rate Fraction of Inspired Oxygen Intake/Output Intake/Output: Intake & Output 02/12/25 02/13/25 02/14/25 02/15/25 23:59 23:59 23:59 23:59 Intake Total 590 1350 1100 150 Output Total 2000 1500 Balance -1410 -150 1100 150 Meds/Results Medications: Active Medications Generic Name Dose Route Start Last Admin Trade Name Freq PRN Reason Stop Dose Admin Acetaminophen 650 mg 02/12/25 09:54 02/15/25 09:06 Acetaminophen 325 Mg Tablet PO 650 mg Q4H PRN Administration Mild Pain (1-3) or Fever Atorvastatin Calcium 40 mg 02/13/25 09:00 02/15/25 09:07 Atorvastatin 40 Mg Tablet PO 40 mg DAILY THERESE Administration Dextrose 12.5 gm 02/12/25 21:02 Dextrose 50% 25 Gm/50 Ml Syringe IV PUSH PRN PRN Hypoglycemia Protocol Diclofenac Sodium 1 applic 02/12/25 20:58 Diclofenac Sodium 1% 100 Gm Gel (*Bkc) TOPICAL QID PRN discomfort Dicyclomine HCl 10 mg 02/12/25 21:00 Dicyclomine Hcl 10 Mg Capsule BY MOUTH BID PRN ABDOMINAL PAIN Glucagon 1 mg 02/12/25 21:02 Glucagon For Inj 1 Mg Vial IM PRN PRN Hypoglycemia Protocol Glucose 15 gm 02/12/25 21:02 Glucose Oral Gel 15 Gm Of Glucse In 37.5 Gm Tube PO PRN PRN Hypoglycemia Protocol Heparin Sodium (Porcine) 5,000 units 02/12/25 22:00 02/15/25 05:33 Heparin Sodium 5,000 Units/Ml Vial SUB-Q 5,000 units Q8HR THERESE Administration Home Med 1 each 02/13/25 16:53 02/13/25 17:57 Home Medication - Tenofovir 25mg Tablets PO 03/15/25 16:52 1 each DAILY PRN Administration AFTER DIALYSIS TREATMENT Albumin Human 50 mls @ 999 mls/hr 02/12/25 10:08 Albutein IVPB 03/14/25 10:07 Q10M PRN HYPOTENSION Dextrose 1,000 mls @ 100 mls/hr 02/12/25 21:02 Dextrose 5% 1,000 Ml IVPB PRN PRN Hypoglycemia Protocol Insulin Aspart 2 - 5 units 02/13/25 08:00 02/14/25 17:11 Insulin Aspart (*Bkc) 100 Units/Ml SUB-Q Not Given TIDWM THERESE Protocol Insulin Glargine 7 units 02/12/25 21:00 02/14/25 22:08 Insulin Glargine (*Bkc) 100 Units/Ml 0.15 units/kg (7 units) 7 units SUB-Q Administration HS THERESE Levofloxacin 750 mg 02/14/25 19:00 02/14/25 22:05 Levofloxacin 750 Mg Tablet PO 750 mg Q48H THERESE Administration Metronidazole 500 mg 02/14/25 22:00 02/15/25 05:33 Metronidazole 500 Mg Tablet PO 500 mg Q8HR THERESE Administration Olanzapine 5 mg 02/14/25 21:25 02/14/25 22:05 Olanzapine Odt Dispertab 5 Mg PO 5 mg QPM THERESE Administration Ondansetron HCl 4 mg 02/12/25 09:54 Ondansetron Inj 4 Mg/2 Ml Vial IV PUSH Q4H PRN Nausea Pantoprazole Sodium 40 mg 02/12/25 21:00 02/15/25 09:07 Pantoprazole 40 Mg Tablet PO 40 mg Q12HR THERESE Administration Polyethylene Glycol 17 gm 02/14/25 10:55 02/14/25 12:34 Polyethylene Glycol 3350 17 Gm Powd.Pack PO 17 gm QAM THERESE Administration Sitagliptin Phosphate 100 mg 02/13/25 09:00 02/15/25 09:07 Sitagliptin Phosphate 100 Mg Tablet PO 100 mg DAILY THERESE Administration Tobramycin Sulfate 1 drop 02/12/25 21:00 02/15/25 05:33 Tobramycin Sulfate 0.3% Ophth Soln 5 Ml EACH EYE 1 drop Q4HR THERESE Administration Tramadol HCl 50 mg 02/13/25 16:54 02/13/25 17:57 Tramadol Hcl (*Crx) 50 Mg Tablet PO 50 mg Q6H PRN Administration Pain Rated 7-10 Trazodone HCl 100 mg 02/12/25 21:00 02/14/25 22:04 Trazodone Hcl 50 Mg Tablet PO 100 mg QHS THERESE Administration Vitamin B Complex/Folic Acid 1 cap 02/13/25 09:00 02/15/25 09:07 Vitamin B Cmplx/Vit C/Folic Ac 1 Capsule PO 1 cap DAILY THERESE Administration Radiology Results: ITS Impressions Skeletal Survey 02/13/25 06:09 Impression: 1: No suspicious lytic or blastic lesions are identified to suggest metastatic disease or myeloma. Chest/Abdomen/Pelvis CT 02/13/25 06:23 Impression: Small pleural effusions with mild bibasilar atelectatic change. Tiny gallstone. Renal osteodystrophy with atrophic kidneys and multiple renal cysts. Fecal impaction and stercoral proctitis. Head CT 02/13/25 20:04 Impression: No acute intracranial hemorrhage or suspicious mass effect. Chest X-Ray 02/13/25 20:06 IMPRESSION: Increased left-sided pleural effusion without additional abnormality within the bilateral lung salazar. Labs Labs: Laboratory Results - last 24 hr 02/14/25 02/14/25 02/14/25 11:18 16:22 21:01 WBC RBC Hgb Hct MCV MCH MCHC RDW Plt Count MPV Immature Gran % (Auto) Neut % (Auto) Lymph % (Auto) [place] % (Auto) Eos % (Auto) Baso % (Auto) Lymph # (Auto) [place] # (Auto) Eos # (Auto) Baso # (Auto) Abs Immat Gran (auto) Absolute Neuts (auto) Absolute Nucleated RBC Band Neutrophils % Nucleated RBC % Atypical Lymphocytes Platelet Estimate % Immature Plt Fraction Polychromasia Macrocytosis Schistocytes Sodium Potassium Chloride Carbon Dioxide Anion Gap BUN Creatinine Estim Creat Clear Calc Estimated GFR Glucose POC Capillary Glucose 250 H 162 H 191 H Calcium Phosphorus Albumin PTH Intact 02/15/25 02/15/25 05:53 07:25 WBC 6.9 RBC 3.21 L Hgb 9.7 L Hct 33.6 L MCV 104.7 H MCH 30.2 MCHC 28.9 L RDW 14.8 H Plt Count 119 L MPV 11.7 H Immature Gran % (Auto) 0.4 Neut % (Auto) 61.9 Lymph % (Auto) 23.1 Woodford % (Auto) 12.6 H Eos % (Auto) 1.7 Baso % (Auto) 0.3 Lymph # (Auto) 1.60 [place]ford # (Auto) 0.9 H Eos # (Auto) 0.1 Baso # (Auto) 0.0 Abs Immat Gran (auto) 0.03 Absolute Neuts (auto) 4.3 Absolute Nucleated RBC 0.000 Band Neutrophils % Not Reportable Nucleated RBC % 0.0 Atypical Lymphocytes Present Platelet Estimate Slightly decreased % Immature Plt Fraction 4.4 Polychromasia 1+ Macrocytosis 1+ Schistocytes Rare Sodium 130 L Potassium 4.1 Chloride 98 Carbon Dioxide 23 Anion Gap 9 BUN 34 H D Creatinine 4.07 H Estim Creat Clear Calc Not Reportable Estimated GFR 11 L Glucose 144 H POC Capillary Glucose 132 H Calcium 8.8 Phosphorus 3.3 Albumin 3.4 L PTH Intact 221.9 H
[2025-02-15 10:12] LABS: NT Pro B Type Natriuretic Pept > 30000 pg/mL (19.9-100)
[2025-02-15 14:00] VITALS: BP 141/55; PULSE 82; RESP 16; TEMP 36.6; O2SAT 91
[2025-02-16 14:08] LABS: Free Lambda Lt Chains, Serum 86.4 mg/L (5.7-26.3); Kappa/Lambda Ratio, Serum 1.09 (0.26-1.65)
[2025-02-16 15:09] LABS: ACE 73 U/L (14-82)
== END 2025-02-15 14:39 | disposition home health service (06) | DRG 640 ==
LOC: ANHED 11:10 → ANH3MEDSUR 11:26
PROVIDERS: Internal Medicine Nephrology; Internal Medicine Pulmonary Disease; Admitting Provider Internal Medicine; Emergency Provider Emergency Medicine; PCP Family Medicine; Visit Provider Internal Medicine
DX: E83.52 Hypercalcemia (principal); J96.01 Acute respiratory failure with hypoxia; J96.02 Acute respiratory failure with hypercapnia; N18.6 End stage renal disease; I12.0 Hypertensive chronic kidney disease with stage 5 chronic kidney disease or end stage renal disease; L03.115 Cellulitis of right lower limb; L97.419 Non-pressure chronic ulcer of right heel and midfoot with unspecified severity; E87.79 Other fluid overload; E11.22 Type 2 diabetes mellitus with diabetic chronic kidney disease; D63.1 Anemia in chronic kidney disease; Z99.2 Dependence on renal dialysis; K52.89 Other specified noninfective gastroenteritis and colitis; K21.9 Gastro-esophageal reflux disease without esophagitis; I73.9 Peripheral vascular disease, unspecified; I48.0 Paroxysmal atrial fibrillation; I71.20 Thoracic aortic aneurysm, without rupture, unspecified; I27.20 Pulmonary hypertension, unspecified; M17.0 Bilateral primary osteoarthritis of knee; M81.0 Age-related osteoporosis without current pathological fracture; E78.5 Hyperlipidemia, unspecified; Z96.651 Presence of right artificial knee joint; Z95.820 Peripheral vascular angioplasty status with implants and grafts; Z86.19 Personal history of other infectious and parasitic diseases
CPT/HCPCS: 36415; 36600; 70450; 71045; 71046; 71250; 74018; 74176; 77075; 80053; 80069; 82164; 82306; 82330; 82397; 82805; 82948; 83735; 83880; 83970; 84100; 84443; 84590; 85018; 85025; 85055; 85610; 85730; 86706; 87040; 87340; 87637; 87641; 93005; 94618; 96365; 96375; 97161; 97165; 99212; 99285; A9270; G0257; G0378; G0463; J1644; J1815; J1836; J1956; J7030; Q5105

== ENCOUNTER 2025-02-15 18:49 | Emergency (ER) | payer MEDICARE, MEDICAID, SELFPAY ==
[2025-02-15] VITALS (11 sets, daily range): BP systolic 145–159; BP diastolic 50–64; PULSE 64–93; RESP 18–25; TEMP 36.8; O2SAT 96–100
--- NOTE | ~2025-02-15 | XR_ITS ---
EXAM: XR abdomen/kub 1V DATE: 02/15/2025 20:35 HISTORY: constipation . COMPARISON: CT cap 02/12/2025. FINDINGS: Clear lung bases. Paucity of small bowel gas, rectum is dilated to 7.9 cm by formed stool, otherwise normal bowel gas pattern. Extensive vascular calcifications. Sclerotic appearing bones IMPRESSION: Likely fecal impaction. No air-filled bowel dilation to suggest obstruction or ileus, not ing there is a paucity of small bowel gas. Sclerotic bones possibly secondary to renal osteodystrophy . Reviewed, dictated and finalized at location K. IMPRESSION: Likely fecal impaction. No air-filled bowel dilation to suggest obs truction or ileus, noting there is a paucity of small bowel gas. Sclerotic bone s possibly secondary to renal osteodystrophy.
--- OUTSIDE RECORDS SUMMARY | 2025-02-15 18:52 | XMS_ITS | Encounter Summary ---
Author Organization [facility] Address [address] [place] [address] Phone Care Team Providers Care Engineering Operations Leader Name Role Phone David Coppola MD Primary Care Provider [phone] David Coppola MD Primary Care Provider [phone] David Coppola MD Primary Care Provider [phone] David Coppola MD Primary Care Provider [phone] Unknown, Notinfile Primary Care Provider Unavail able David Coppola MD Primary Care Provider [phone] Jacob Suarez MD Unavailable [phone] Marnie Lara RN Unavailable [phone] Ros Seay MD Unavailable [phone] Johana Edmond RN Unavailable Abdifatah Villa MD Unavailable Issa Clements MD Unavailable [phone] Encounter Details Date Type Department Care Team (Latest Contact Info) Description 12/16/1980 Orders Only [facility] Scanning, Provider Social History Tobacco Use Types Packs/Day Years Used Date Smoking Tobacco: Never Assessed Comments Unknown Sex and Gender Information Value Date Recorded Sex Assigned at Not on file 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 Gender Identity Not on file Sexual [...] Influenza, adult 09/04/2019 09/04/2019 09/11/2019 3:05 AM LOAN SERVICING REPRESENTATIVE Abscess/Wound/Cellulitis 10/16/2019 10/16/2019 3:05 AM CDT documented as of this encounter Care Teams Engineering Operations Leader Relationship Specialty Start Date End Date David [...] Nephrology 12/20/18 Marnie Lara, RN Registered Nurse Deburrer 12/20/1809/03 Ros Seay MD Air Hammer Operator Cardiology 03/05/19 Johana Edmond, RN [address] [facility] [address] [place] [address] [place]bur[place] 08/21/19 Abdifatah Villa MD [address] [place] [address] Consulting Physician Cardiology 09/01/20 Issa Clements MD [address] [facility] [address] [place] [address] Referring Physician General Surgery 09/01/20 documented as of this encounter
--- OUTSIDE RECORDS SUMMARY | 2025-02-15 18:52 | XMS_ITS | Encounter Summary ---
Author Organization [facility] Address [address] [facility] [place] [address] Care Team Providers Care Warrant Clerk Name Role Phone David Coppola MD Primary Care Provider + [phone] David Coppola MD Unavailable [phone] David Coppola MD Unavailable [phone] Virginie Corea RN Unavailable [phone] Encounter Details Date Type Department Care Team (Late st Contact Info) Description 04/10/2018 Nutrition [facility] TRANSPLANT [address] [place] [phone] [address]/LAURA Social History Tobacco Use Types Packs/Day Years Used Date Smoking Tobacco: Never Smokeless Tobacco: Never Alcohol Use Standard Drinks/Week Comments No 0 (1 standard drink = 0.6 oz pur e alcohol) Comments No Sex and Gender Information Value Date Recorded Sex Assigned at Not on file 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 Gender Identity Not on file Sexual [...] AM CDT Appointment [facility] [address] [facility], [address] [place], [place] [id number] [place] [address] [facility] [address] [place] [address] [place] [address] [facility] [address] [place] [address] Cristo Fontenot MD [address] [place] [address] 03/17/2025 1:00 PM CDT Procedure visit [facility] [address] [place] [phone] 03/17/2025 1:30 PM CDT Office Visit [facility] [address] [place] [phone] Avis Dumont, SHUTTLE ROUTE VEHICLE OPERATOR-POULTRY SLAUGHTERER [address] [place] [address] [place] [address] documented as of this encounter Visit Diagnoses Not on filedocumented in this encounter Care Teams Warrant Clerk Relationship Specialty Start Date End Date David Coppola MD [address] [place] [phone] PCP - General 08/15/16 David Coppola MD [address] [place] [phone] Family Medicine 02/08/15 David Coppola MD [address] [place] [address] [phone] Family Medicine 08/15/16 Virginie Corea RN Health Promotion Manager 02/23/15 documented as of this encounter
--- OUTSIDE RECORDS SUMMARY | 2025-02-15 18:53 | XMS_ITS | Encounter Summary ---
Author Organization [facility] Address [address] [place] [address] Phone Care Team Providers Care Phd Internship Name Role Phone David Coppola MD Primary Care Provider [phone] Jacob Suarez MD Unavailable Marnei Lara RN Unavailable Ros Seay MD Unavailable Johana Edmond RN Unavailable Abdifatah Villa MD Unavailable Issa Clements MD Unavailable [phone] Encounter Details Date Type Department Care Team (Late st Contact Info) Description 05/13/2018 Telephone [facility] Cardiology [address] [facility] Advanced Medicine 8th [place] [address] [place] [address] Cameron Haro MD [address] [place] [address] Social History Tobacco Use Types Packs/Day Years Used Date Smoking Tobacco: Never Smokeless Tobacco: Never Alcohol Use Standard Drinks/Week Comments No 0 (1 standard drink = 0.6 oz pur e alcohol) Comments No Sex and Gender Information Value Date Recorded Sex Assigned at Not on file Legal Sex Female 12:39 PM RIBBON TIER Gender Identity Not on file Sexual Orientation [...] Influenza, adult 09/04/2019 09/04/2019 09/11/2019 3:05 AM RIBBON TIER Abscess/Wound/Cellulitis 10/16/2019 10/16/2019 3:05 AM CDT documented as of this encounter Care Teams Phd Internship Relationship Specialty Start Date End Date David Coppola MD PCP - General Family Medicine 10/29/17 Jacob Suarez MD Referring Physician Nephrology 12/20/18 Marnie Lara, RN Registered Nurse Master In Chancery 12/20/1809/03 Ros Seay MD Light Coil Winder Cardiology 03/05/19 Johana Edmond, RN [address] [facility] [address] [place] [address] Master In Chancery 08/21/19 Abdifatah Villa MD [address] [place] [address] Consulting Physician Cardiology 09/01/20 Issa Clements MD [address] [facility] [address] [place] [address] Referring Physician General Surgery 09/01/20 documented as of this encounter
--- OUTSIDE RECORDS SUMMARY | 2025-02-15 18:53 | XMS_ITS | Encounter Summary ---
Author Organization [facility] Address [address] [facility] [place] [address] Care Team Providers Care Barrel Line Operator Name Role Phone David Coppola MD Primary Care Provider + [phone] David Coppola MD Primary Care Provider + [phone] David Coppola MD Unavailable [phone] David Coppola MD Unavailable [phone] Virginie Corea RN Unavailable [phone] Encounter Details Date Type Department Care Team (Late Contact Info) Description 02/08/2015 [facility] Outpatient Visit EXTERNAL NON-[facility] DEPT David Buitrago MD [address] [place] [address] [address] [place] [phone] Social History Tobacco Use Types Packs/Day Years Used Date Smoking Tobacco: Never Alcohol Use Standard Drinks/Week Comments No 0 (1 standard drink = 0.6 oz pur e alcohol) Comments Unknown Sex and Gender Information Value Date Recorded Sex Assigned at Not on file 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 [address] [place] [address] [place] [address] [facility] [address] [place] [address] Cristo Fontenot MD [address] [place] [address] 03/17/2025 1:00 PM CDT Procedure visit [facility] - [place] [address] [place] [address], [place] [phone] 03/17/2025 1:30 PM CDT Office Visit [facility] - [place] [address] [place] [phone] Avis Dumont, MOBILE ARCHITECT-AUDIT ASSOCIATE [address] [place] [address] [place] [phone] documented as of this encounter Visit Diagnoses Not on filedocumented in this encounter Care Teams Barrel Line Operator Relationship Specialty Start Date End Date David Coppola MD [address] [place] [phone] PCP - General Family Medicine 02/08/15 08/14/16 David Coppola MD [address] [place] [phone] PCP - General 08/15/16 David Coppola MD [address] [place] [phone] Family Medicine 02/08/15 David Coppola MD [address] [place] [phone] Family Medicine 08/15/16 Virginie Corea, ABENA Recovery Agent 02/23/15 documented as of this encounter
--- OUTSIDE RECORDS SUMMARY | 2025-02-15 18:53 | XMS_ITS | Clinical Summary ---
Author Organization [facility] Address [address] [place] [address] Phone Care Team Providers Care Insurance Account Executive Name Role Phone David Coppola MD Primary Care Provider [phone] Allergies Active Allergy Reactions Criticality Noted Date [...] Comments Blood Pressure 71/53 09/01/2020 2:54 PM RESIDENTIAL TEAM LEADER 148 /36 Pulse 72 09/01/2020 2:54 PM RESIDENTIAL TEAM LEADER Temperature 36.4 C (97.6 F) 09/01/2020 2:54 PM RESIDENTIAL TEAM LEADER Respiratory Rate - - Oxygen Saturation 97% 09/01/2020 2:54 PM RESIDENTIAL TEAM LEADER Inhaled Oxygen Concentration - - Weight 56.6 kg (124 lb 11.2 oz) 09/01/2020 2:54 PM RESIDENTIAL TEAM LEADER Height 144.8 cm (4' 9) 09/01/2020 2:54 PM RESIDENTIAL TEAM LEADER Body Mass Index 26.98 09/01/2020 2:54 PM RESIDENTIAL TEAM LEADER Plan of Treatment Health Maintenance Due Date [...] [facility] [address] Care Teams Insurance Account Executive Relationship Specialty Start Date End Date David Coppola MD PCP - General Family Practice 05/14/20
--- OUTSIDE RECORDS SUMMARY | 2025-02-15 18:53 | XMS_ITS | Clinical Summary ---
Author Organization [facility] [address] Address [address] [place] [address] Care Team Providers Care Radiology Technician Name Role Phone David Coppola MD Primary Care Provider [phone] Jacob Suarez MD Unavailable [phone] Ros Seay MD Unavailable [phone] Abdifatah Villa MD Unavailable Issa Clements MD Unavailable [phone] Allergies Active Allergy Reactions Criticality Noted [...] GIB. Patients daughter reports recent admission to [facility] due to concern for GIB. Patient followed up with her outpatient GI. Planning for EGD at the end of November - continue PPI. Assessment & Plan (11/21/2024 3:03 PM CDT): History of peptic ulcer with GIB. Patients daughter reports recent admission to [facility] due to concern for GIB. Patient followed up with her outpatient GI. 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 Reviewed PCP records noted hypoglycemia last hospital admit with basal insulins continued Will continue januvia and hold tresiba and victoza SSI Family history of ischemic h eart disease and other diseases of the circulatory system 11/27/2019 Critical limb ischemia of right lower extremity 10/14/2019 Overview (10/14/2019): Added automatically from request for surgery [id number] Assessment & Plan (08/28/2024 12:59 PM RECLAIMER): S/p uncomplicated balloon angioplasty of the AT, [...] (10/14/2019): Added automatically from request for surgery [id number] Presence of Watchman left atrial appendage closu re device 08/29/2018 Atrial fibrillation, permanent 06/13/2018 Overview (06/13/2018): Added automatically from request for surgery [id number] Assessment & Plan (11/22/2024 1:43 PM CDT): Rate controlled and s/p Watchman due to prior GIB. - continue home coreg as below. Assessment & Plan (11/21/2024 3:39 PM CDT): Rate controlled and s/p Watchman due to prior GIB. - continue home coreg as below Assessment & Plan (08/28/2024 1:03 PM RECLAIMER): Follows with [facility] cardiology. Rate controlled and s/p Watchman due to prior severe GIB Recently stopped coreg due to bradycardia ASA and plavix to start per IR recs post revascularization Assessment & Plan (07/24/2018 9:29 AM RECLAIMER): Continue coreg. S/p Watchmann DAVIDA occluder implant for future deescalate anticoagulation. Continue apixiban for now as per EP. Post procedure CXR. 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 PAD (peripheral artery disease) 03/15/2018 Overview (03/15/2018): Added automatically from request for surgery [id number] Assessment & Plan (11/22/2024 1:43 PM CDT): [...] (03/15/2018): Added automatically from request for surgery [id number] Ischemia of foot 03/15/2018 Overview (03/15/2018): Added automatically from request for surgery [id number] Noncompliance 02/24/2018 Essential hypertension 11/10/2017 Assessment & Plan (11/22/2024 1:43 PM CDT): On lisinopril and coreg at home, holding today for lower BP. Resume as able. Assessment & Plan (11/21/2024 3:03 PM CDT): Continue home lisinopril and coreg Assessment & Plan (07/24/2018 9:27 AM RECLAIMER): Continue home meds and dialysis. Hyperlipidemia associated with type 2 diabetes m karthik 11/10/2017 ESRD (end stage renal disease) on dialysis 11/10 Assessment & Plan (11/22/2024 1:43 PM CDT): Patient on HD MWF - Received Dialysis today on 11/22. Resume outpatient schedule. Assessment & Plan (11/21/2024 3:03 PM CDT): Patient on HD MWF - nephrology consult for dialysis today Assessment & Plan (08/29/2024 4:04 PM RECLAIMER): Routine M/W/F r brachial fistula (has required multiple dilations last at [facility] 07/2024 Feeling well post procedure denies dyspnea. Renal consulted for HD prior to discharge Assessment & Plan (07/24/2018 9:26 AM RECLAIMER): HD as per renal consult. Resume outpt [...] Resolved Date Coronary artery disease invo lving wrangell coronary artery of wrangell heart without angina pectoris 03/07/2021 03/07/2021 Preoperative cardiovascular examination 03/07/2021 09/29/2022 Hypoxia 11/27/2019 04/03/2023 Toe ulcer, left, with unspecified severity 09/16/2018 03/07/2021 Overview (09/16/2018): Added automatically from request for surgery [id number] Cough 11/10/2017 03/07/2021 Lumbago 06/04/2017 03/07/2021 Pain of lower extremity 06/04/2017 09/2 12/2022 Chronic anticoagulation 08/22/2016 0610/2018 Overview (10/12/2016): Chronic anticoagulation Stage 4 chronic kidney disease 04/21/2014 04/03/2023 Pain in joint 03/04/2014 04/03/2023 Paroxysmal atrial fibrillation 05/06/2024 ESRD (end stage renal disease) ([facility]) 03/07/2021 Pre-transplant evaluation fo r kidney transplant 04/03/2023 Encounters Date Type Department Care Team Description 02/13/2025 Telephone [facility] Radiology [address] [place] [address] Alena Fontenot, RN 02/12/2025 4:00 PM CDT Telemedicine [facility] Radiology, Interventional Radiology [address] [place] [id number] Anthony Gorman MD Type 2 diabetes mellitus with diabetic peripheral angiopathy and gangrene, without long-term current use of insulin (HCC) (Primary Dx); Atrial fibrillation, permanent (HCC); Hyperlipidemia associated with type 2 diabetes mellitus (HCC); Critical limb ischemia of right lower extremity (HCC); Noncompliance; PAD (peripheral artery disease) 02/12/2025 Telephone [facility] Radiology [address] [place] [address] Alena Fontenot, RN 01/13/2025 1:30 PM CDT Office Visit [facility] Cardiology at [address] [place] [address] David Rodriguez MD Atrial fibrillation, permanent (HCC) (Primary Dx) 01/06/2025 Orders Only [facility] Radiology 1 [place] [address] Alena Fontenot, ABENA PAD (peripheral artery disease) (Primary Dx) 01/05/2025 Telephone [facility] Radiology [address] [place] [address] Alena Fontenot RN 12/23/2024 9:02 AM CDT - 12/23/2024 11:59 PM CDT Hospital Encounter [facility] [address] [place] [address] Atherosclerosis of wrangell arteries of extremities with intermittent claudication, right leg; Atherosclerosis of wrang[place] arteries of extremities with rest pain, bilateral legs (HCC) Discharge Disposition: Discharge to home or self care 12/23/2024 9:02 AM CDT - 12/23/2024 11:59 PM CDT Hospital Encounter [facility] [address] [place] [address] Atherosclerosis of wr[place] arteries of extremities with rest pain, bilateral legs (HCC); Atherosclerosis of [place] arteries of extremities with rest pain, left leg (HCC) Discharge Disposition: Discharge to home or self care 11/28/2024 Telephone [facility] Radiology [address] [place] [address] Alena Fontenot, ABENA 11/27/2024 Orders Only [facility] Radiology [address] [place] [address] Alena Fontenot, RN Atherosclerosis of wr[place] arteries of extremities with intermittent claudication, right leg (Primary Dx); Atherosclerosis of [place] arteries of extremities with rest pain, bilateral legs (HCC); Atherosclerosis of [place] arteries of extremities with rest pain, left leg (HCC) 11/27/2024 Telephone [facility] Radiology [address] [place] [address] Alena Fontenot RN 11/21/2024 12:00 PM CDT - 11/22/2024 4:55 PM CDT Hospital Encounter [address] [address] Shahnaz Heredia MD Guevara, Carlos Javier, MD Pain and swelling of right lower extremity (Primary Dx); Non-healing wound of right lower extremity; Pain and swelling of lower extremity, right; PAD (peripheral artery disease) Discharge Disposition: Discharge to home or self care 11/21/2024 6:00 AM CDT Office Visit [facility] [address] [facility] 1st [place] [address] PAD (peripheral artery disease) 11/21/2024 Telephone Radiology 1 [place] [address] Hollie Martinez PA 11/19/2024 Telephone [facility] Scheduling [address] [place] [address] Cynthia Blankenship MD Scheduling Appointments 11/19/2024 Telephone [facility] Radiology [address] [place] [address] Yaritza Golden RN 11/18/2024 Telephone [facility] Radiology [address] [place] [address] Tomy Reynolds RN 11/17/2024 Orders Only [facility] Radiology [address] [place] [address] Alena Fontenot, ABENA PAD (peripheral artery disease) (Primary Dx) 11/17/2024 Telephone [facility] Radiology [address] [place] [address] Alena Fontenot, RN from Last 3 Months Immunizations Immunization Administration [...] Hx Relation Name Status Comments Brother of [place] age 48 Father of [place] age 47 Mother Social History Tobacco Use Types Packs/Day Years Used Date Smoking Tobacco: Never Smokeless Tobacco: Never Tobacco Cessation:Counseling Given: Not Answered Alcohol Use Standard Drinks/Week Comments No 0 (1 standard drink = 0.6 oz pur e alcohol) Social Connection and Isolation Panel Answer Date Recorded In a typical week, how many times do you talk on the phone with family, friends, or neighbors? More than three times a week 09/04/2019 How often do you get togethe r with friends or relatives? Three times a week 09/04/2019 How often do you attend chur or anglican services? 1 to 4 times per year [...] on file Legal Sex Female 12:39 PM RECLAIMER Gender Identity Not on file Sexual Orientation [...] 09/04/2019, 05/08/2019 Medical Devices Implanted Type Area Core Oven Tender Device Identifier Shelf Expiration Date Model / Serial / Lot Device Clsr 27mm Davida Watchman - [id number] - [id number] Implanted:Qty : 1 on 07/23/2018 by Mike Mccloud MD PhD at [facility] Other - see comments Left: Heart [employer] Breanna 12/13/2020 27MM-DAVIDA CLOSURE DEVICE / [id number] / [id number] Description:Left atrial appe ndage closure device Watchman Daig Breanna/[employer] [id number] Angio-Seal Vip Bondek-Plus 6fr .035in 70cm Hemostatic Latex Free - [id number] Implanted:Qty : 1 on 03/20/2018 by Abdifatah Villa MD at [facility] Daig Breanna[employer] 12/06/2018 [id number] / / [id number] Device Davida Watchman Procedure - [id number] Implanted:Qty : 1 on 07/23/2018 by Mike Mccloud MD PhD at [facility] listedplaces [employer]MP[employer]DEVICE 1 - 3 PC / / Description:1 Device Daig Breanna[employer] [id number] Angio-Seal Vip Bondek-Plus 6fr .035in 70cm Hemostatic Latex Free - [id number] Implanted:Qty : 1 on 09/26/2018 [facility] 06/07/2019 [id number] / / [id number] Daig Breanna [id number] Device Closure Angio-Seal Vip Bondek-Plus Polyglyd L70 Cm Od6 Fr Odsec.035 In Vascular - [id number] Implanted:Qty : 1 on 10/16/2019 by Abdifatah Villa MD at [facility]/[employer] [id number] / / [employer] Device 6fr Closure Celt Acd Vascular Sterile Latex Free Disposable Flavio [facility], Inct-06 - [id number] Implanted:Qty : 1 on 08/28/2024 at [facility] [employer] 01/01/2027 KCLT-06 / / [id number] Tererento Angio-Seal Vip 6fr Closere Device [id number] - [id number] Implanted:Qty : 1 on 11/21/2024 at [facility] [employer] 03/26/2025 [id number] / / [id number] Procedures Procedure Name Priority Date/Time Associated Diagnosis Comments VL US ARTERIAL DUPLEX LOWER EXTREMITY BILATERAL Schedule Routine, Read Routine (OP Routine) 12/23/2024 11:51 AM CDT Atherosclerosis of wrangell arteries of extremities with rest pain, bilateral legs (HCC) Atherosclerosis of wrangell arteries of extremities with rest pain, left leg (HCC) US ARTERIAL DOPPLER LOWER EXTREMITY BILATERAL Schedule Routine, Read Routine (OP Routine) 12/23/2024 11:17 AM CDT Atherosclerosis of wrangell arteries of extremities with intermittent claudication, right leg Atherosclerosis of wrangell arteries of extremities with rest pain, bilateral [...] HEPATITIS C ANTIBODY Routine 08/19/2020 12:07 PM RECLAIMER ESRD (end stage renal disease) (HCC) HEMOGLOBIN A1C Routine 09/04/2019 12:14 AM RECLAIMER from Last 3 Months or Most Recently [...] DATE: 12/23/2024 10:00 AM HISTORY: Atherosclerosis of [place] Arteries of Extremities with Rest Pain, Bilateral [...] DATE: 12/23/2024 10:00 AM HISTORY: Atherosclerosis of [place] Arteries of Extremities with Rest Pain, Bilateral [...] 0.23. Electronically signed by: Cezar Antonio MD [facility] North[facility]akBob Gorman MD IM US PROCEDURES Final Result * US MELISSA [...] DATE: 12/23/2024 10:00 AM HISTORY: Atherosclerosis of [place] Arteries of Extremities with Rest Pain, Bilateral [...] DATE: 12/23/2024 10:00 AM HISTORY: Atherosclerosis of [place] Arteries of Extremities with Rest Pain, Bilateral [...] POCT ORDERABLES - DEV ICE Final Result [facility] [place] [address] * (ABNORMAL) POCT glucose (11/22/2024 8:28 AM CDT) Glucose, POC 230(H) 70 - 199 mg/dL Blood 11/22/2024 8:28 AM CDT 11/22/2024 8:28 AM CDT Shahnaz Heredia MD LAB POCT ORDERABLES - DEV ICE Final Result Performing Organization Address [facility] Co de Phone Number [facility] [place] [address] * (ABNORMAL) eGFR (11/22/2024 7:56 AM CDT) [...] ORDERABLES Final R esult Performing Organization Address City/[facility]/ZIP Co de Phone Number [facility] Department [place] [address] * Hepatitis B Surface Antigen Blood (11/22/2024 7:56 AM CDT) HepBsAg Nonreactive Nonreactive Blood 11/22/2024 7:56 AM CDT 11/22/2024 8:36 AM CDT us Nina Hopson MD LAB MICROB IOLOGY - GENERAL ORDERABLES Edited Result - Final [facility] Department [place] [address] * (ABNORMAL) CBC without differential (11/22/2024 7:56 AM CDT) Pathologist [facility] WBC 7.32 3.80 - 9.90 K/cumm Hgb 8.6(L) 11.9 - 15.5 g/dL [facility] Hct 28.8(L) 35.6 - 45.5 % [facility] Plt 111(L) 150 - 400 K/cumm [facility] MPV 12.6(H) 9.1 - 12.3 fL [facility] RBC 2.91(L) 3.90 - 5.20 M/cumm [facility] MCV 99.0(H) 81.3 - 96.4 fL [facility] MCH 29.6 27.1 - 33.3 pg [facility] MCHC 29.9(L) 32.3 - 35.7 g/dL [facility] RDW CV 17.2(H) 11.1 - 14.9 % [facility] RDW SD 60.7(H) 35.7 - 48.1 fL [facility] NRBC abs 0.00 0.00 - 0.01 K/cumm [facility] Blood 11/22/2024 7:56 AM CDT 11/22/2024 8:37 AM CDT Tomy GUADARRAMA LAB BLOOD ORDERABLES Final R esult [facility] Department [place] [address] * (ABNORMAL) Basic metabolic panel (11/22/2024 7:56 AM CDT) Pathologist [facility] Sodium 131(L) 135 - 145 mmol/L Potassium, pl 5.5(H) 3.3 - 4.9 mmol/L [facility] Chloride 92(L) 97 - 110 mmol/L [facility] CO2 29 22 - 32 mmol/L [facility] Anion gap 10 2 - 15 mmol/L [facility] BUN 58(H) 6 - 25 mg/dL [facility] Creatinine 6.13(H) 0.60 - 1.10 mg/dL [facility] Glucose 257(H) 70 - 199 mg/dL [facility] Comment: Interpretive Data Fasting glucose [...] 2022. Calcium 8.8 8.5 - 10.3 mg/dL [facility] Blood 11/22/2024 7:56 AM CDT 11/22/2024 8:37 AM CDT us Tomy GUADARRAMA LAB BLOOD ORDERABLES Final R esult [facility] Department [place] [address] * (ABNORMAL) eGFR (11/21/2024 10:36 PM CDT) [...] Fermin NP LAB BLOOD ORDERABLES Final Result [facility] Department [place] [address] * (ABNORMAL) CBC without differential (11/21/2024 10:36 PM CDT) WBC 8.51 3.80 - 9.90 K/cumm Hgb 8.9(L) 11.9 - 15.5 g/dL [facility] Hct 29.8(L) 35.6 - 45.5 % [facility] Plt 112(L) 150 - 400 K/cumm [facility] MPV 12.7(H) 9.1 - 12.3 fL [facility] RBC 3.01(L) 3.90 - 5.20 M/cumm [facility] MCV 99.0(H) 81.3 - 96.4 fL [facility] MCH 29.6 27.1 - 33.3 pg [facility] MCHC 29.9(L) 32.3 - 35.7 g/dL [facility] RDW CV 17.2(H) 11.1 - 14.9 % [facility] RDW SD 60.3(H) 35.7 - 48.1 fL [facility] NRBC abs 0.02(H) 0.00 - 0.01 K/cumm [facility] Blood 11/21/2024 10:3 6 PM CDT 11/21/2024 10:49 PM CDT us Christina Fermin NP LAB BLOOD ORDERABLES Final Result [facility] Department [place] [address] * (ABNORMAL) Phosphorus (11/21/2024 10:36 PM CDT) Pathologist [facility] Phosphorus, pl 6.5(H) 2.3 - 4.5 mg/dL Blood 11/21/2024 10:3 6 PM CDT 11/21/2024 10:49 PM CDT Robles Alicea MD LAB BLOOD ORDERABLES Gertrude l Result Performing Organization Address [facility] Co de Phone Number [facility] Department [place] [address] * (ABNORMAL) Basic metabolic panel (11/21/2024 10:36 PM CDT) Pathologist [facility] Sodium 135 135 - 145 mmol/L Potassium, pl 5.5(H) 3.3 - 4.9 mmol/L [facility] Chloride 93(L) 97 - 110 mmol/L [facility] CO2 29 22 - 32 mmol/L [facility] Anion gap 13 2 - 15 mmol/L [facility] BUN 57(H) 6 - 25 mg/dL [facility] Creatinine 5.81(H) 0.60 - 1.10 mg/dL [facility] Glucose 257(H) 70 - 199 mg/dL [facility] Comment: Interpretive Data Fasting glucose [...] 2022. Calcium 9.6 8.5 - 10.3 mg/dL [facility] Blood 11/21/2024 10:3 6 PM CDT 11/21/2024 10:49 PM CDT Christina Fermin NP LAB BLOOD ORDERABLES Final Result [facility] [place] [address] * POCT glucose (11/21/2024 8:23 PM CDT) Glucose, POC 119 70 - 199 mg/dL Blood 11/21/2024 8:23 PM CDT 11/21/2024 8:23 PM CDT Shahnaz Heredia MD LAB POCT ORDERABLES - DEV ICE Final Result Performing Organization Address City/[facility]/ZIP Co de Phone Number [facility] [place] [address] * POCT glucose (11/21/2024 5:24 PM CDT) Glucose, POC 188 70 - 199 mg/dL Blood 11/21/2024 5:24 PM CDT 11/21/2024 5:24 PM CDT Shahnaz Heredia MD LAB POCT ORDERABLES - DEV ICE Final Result Performing Organization Address City/[facility]/ZIP Co de Phone Number [facility] [place] [address] * IR Angiogram Lower Extremity Right (11/21/2024 [...] was obtained. Prior to beginning the procedure, Umbarger Protocol was performed to confirm the patient's [...] of the patent vessel was recorded. The 5-Turkmen catheter was placed in the superficial femoral artery and the right lower extremity angiogram was performed in stations to the foot A 45 cm 6-Turkmen sheath was advanced to the superficial femoral [...] was obtained. Prior to beginning the procedure, Umbarger Protocol was performed to confirm the patient's [...] of the patent vessel was recorded. The 5-Turkmen catheter was placed in the superficial femoral artery and the right lower extremity angiogram was performed in stations to the foot A 45 cm 6-Turkmen sheath was advanced to the superficial femoral [...] 318(H) 123 - 168 sec POC Performer [id number] [facility] POC Device Number [id number] [facility] Blood 11/21/2024 10:3 6 AM CDT 11/21/2024 10:36 AM CDT Shahnaz Heredia MD LAB POCT ORDERABLES - DEV ICE Final Result Performing Organization Address City/[facility]/ZIP Co de Phone Number [facility] [place] [address] * (ABNORMAL) POCT Activated clotting time, low range (11/21/2024 9:54 AM CDT) ACT 331(H) 123 - 168 sec POC Performer [id number] [facility] POC Device Number [id number] [facility] Blood 11/21/2024 9:54 AM CDT 11/21/2024 9:54 AM CDT Shahnaz Heredia MD LAB POCT ORDERABLES - DEV ICE Final Result [facility] [place] [address] * (ABNORMAL) POCT Activated clotting time, low range (11/21/2024 9:20 AM CDT) ACT 360(H) 123 - 168 sec POC Performer [id number] [facility] POC Device Number [id number] [facility] Blood 11/21/2024 9:20 AM CDT 11/21/2024 9:20 AM CDT us Shahnaz Heredia MD LAB POCT ORDERABLES - DEV ICE Final Result Performing Organization Address City/[facility]/ZIP Co de Phone Number [facility] Department [place] [address] * (ABNORMAL) eGFR (11/21/2024 6:31 AM CDT) [...] data was last reviewed 2021. Blood 11/21/2024 6:3 1 AM CDT 11/21/2024 6:47 AM CDT us Anthony Gorman MD LAB BLOOD ORDERABLES Fi nal Result [facility]LLERMINA [facility] Department [place] [address] * (ABNORMAL) Differential, auto (11/21/2024 6:31 AM CDT) Neutrophil abs 5.81 1.50 - 6.50 K/cumm Imm gran abs 0.03 0.00 - 0.10 K/cumm [facility] Lymphocyte abs 1.28 0.80 - 3.30 K/cumm [facility] Monocyte abs 0.89(H) 0.20 - 0.80 K/cumm [facility] Eosinophil abs 0.05 0.00 - 0.50 K/cumm [facility] Basophil abs 0.03 0.00 - 0.10 K/cumm [facility] Neutrophil pct 71.8 % [facility] Comment: Interpretive Data Percent cell count reference ranges are not reported, since discordance with absolute values may lead to misinterpretation of CBC data. Current Interpretive Data was last revised on 2017. Imm gran pct 0.4 % [facility] Comment: Interpretive Data Percent cell count reference ranges are not reported, since discordance with absolute values may lead to misinterpretation of CBC data. Current Interpretive Data was last revised on 2017. Lymphocyte pct 15.8 % [facility] Comment: Interpretive Data Percent cell count reference ranges are not reported, since discordance with absolute values may lead to misinterpretation of CBC data. Current Interpretive Data was last revised on 2017. Monocyte pct 11.0 % [facility] Comment: Interpretive Data Percent cell count reference ranges are not reported, since discordance with absolute values may lead to misinterpretation of CBC data. Current Interpretive Data was last revised on 2017. Eosinophil pct 0.6 % [facility] Comment: Interpretive Data Percent cell count reference ranges are not reported, since discordance with absolute values may lead to misinterpretation of CBC data. Current Interpretive Data was last revised on 2017. Basophil pct 0.4 % [facility] Comment: Interpretive Data Percent cell count reference ranges are not reported, since discordance with absolute values may lead to misinterpretation of CBC data. Current Interpretive Data was last revised on 2017. Blood 11/21/2024 6:31 AM CDT 11/21/2024 6:47 AM CDT Anthony Gorman MD LAB BLOOD ORDERABLES Fi nal Result Performing Organization Address City/[facility]/ZIP Co de Phone Number [facility] Department [place] [address] * (ABNORMAL) CBC with auto differential (11/21/2024 6:31 AM CDT) WBC 8.09 3.80 - 9.90 K/cumm Hgb 9.9(L) 11.9 - 15.5 g/dL [facility] Hct 32.3(L) 35.6 - 45.5 % [facility] Plt 134(L) 150 - 400 K/cumm [facility] MPV 12.6(H) 9.1 - 12.3 fL [facility] RBC 3.31(L) 3.90 - 5.20 M/cumm [facility] MCV 97.6(H) 81.3 - 96.4 fL [facility] MCH 29.9 27.1 - 33.3 pg [facility] MCHC 30.7(L) 32.3 - 35.7 g/dL [facility] RDW CV 17.2(H) 11.1 - 14.9 % [facility] RDW SD 60.4(H) 35.7 - 48.1 fL [facility] NRBC abs 0.02(H) 0.00 - 0.01 K/cumm [facility] Blood 11/21/2024 6:31 AM CDT 11/21/2024 6:47 AM CDT Anthony Gorman MD LAB BLOOD ORDERABLES Fi nal Result Performing Organization Address City/[facility]/ZIP Co de Phone Number [facility] Department [place] [address] * (ABNORMAL) Lipid panel (11/21/2024 6:31 AM [...] revised on 2018. Triglycerides 90 <=149 mg/dL [facility] Comment: Interpretive Data Ages < or [...] on 2018. HDL 35(L) >=40 mg/dL [facility] Comment: Interpretive Data Ages < or [...] 2018. LDL, calculated 46 <=129 mg/dL [facility] Comment: Interpretive Data Ages < or [...] revised on 2024. Non-HDL Cholesterol 64 mg/dL [facility] Comment: Interpretive Data Ages < or [...] last revised on 2018. Chol/HDL ratio 3 [facility] Blood 11/21/2024 6:31 AM CDT 11/21/2024 6:47 AM CDT us Anthony Gorman MD LAB BLOOD ORDERABLES Fi nal Result [facility] Department [place] [address] * (ABNORMAL) Basic metabolic panel (11/21/2024 6:31 AM CDT) Sodium 135 135 - 145 mmol/L Potassium, pl 4.9 3.3 - 4.9 mmol/L [facility] Chloride 92(L) 97 - 110 mmol/L [facility] CO2 32 22 - 32 mmol/L [facility] Anion gap 11 2 - 15 mmol/L [facility] BUN 50(H) 6 - 25 mg/dL [facility] Creatinine 5.26(H) 0.60 - 1.10 mg/dL [facility] Glucose 231(H) 70 - 199 mg/dL [facility] Comment: Interpretive Data Fasting glucose [...] 2022. Calcium 10.3 8.5 - 10.3 mg/dL [facility] Blood 11/21/2024 6:31 AM CDT 11/21/2024 6:47 AM CDT Anthony Gorman MD LAB BLOOD ORDERABLES Fi nal Result Performing Organization Address City/[facility]/ZIP Co de Phone Number [facility] [place] [address] * Hepatitis C antibody (08/19/2020 12:07 PM RECLAIMER) Hep C Ab Nonreactive Nonreactive [facility] Comment:Antibodies to HCV no t detected. Does NOT exclude the possibility of recent exposure to HCV. Blood specimen (specimen) 08/19/2020 12:07 PM RECLAIMER 08/19/2020 12:15 PM RECLAIMER Humza Trevizo MD LAB MICROB IOLOGY - GENERAL ORDERABLES Edited Result - Final [facility] [place] [address] * (ABNORMAL) Hemoglobin A1c (09/04/2019 12:14 AM RECLAIMER) Hgb A1C 8.2(H) 4.0 - 5.6 % [facility] Estimated Average Glucose 189 mg/dL [facility] Comment: The ADA recommends reporting an estimated Average Glucose (eAG) with all Hemoglobin A1c results using the equation derived from a study of 507 normal and diabetic adults. Minority populations were underrepresented and children were not included. (Diabetes Care 31:7627-7126, 2008). The eAG is not equivalent to a fasting glucose. Blood specimen (specimen) 09/04/2019 12:14 AM RECLAIMER 09/04/2019 12:58 AM RECLAIMER us Brandin Pena MD LAB BLOOD ORDERABLES Final Result [facility] Department [place] [address] from Last 3 Months or Most Recently Relevant to Health Maintenance Insurance [facility] MEDICARE ADVANTAGE IDFL MEDICARE RESEARCH [facility] MEDICARE ADVANTAGE IDPA [facility] MEDICARE ADVANTAGE IDPA Advance Directives For more information, please contact: [phone] * Full Code (Latest Code Status on File) Date Activated Date Inactivated Comments 11/21/2024 7:27 AM 11/22/2024 8:58 PM * Full Code Date Activated Date Inactivated Comments 08/28/2024 6:35 AM 08/29/2024 9:01 PM * Full Code Date Activated Date Inactivated Comments 09/03/2019 11:07 PM 09/04/2019 6:57 PM * Full Code Date Activated Date Inactivated Comments 07/23/2018 10:39 PM 07/24/2018 7:45 PM Care Teams Radiology Technician Relationship Specialty Start Date End Date David Coppola MD PCP - General Family Medicine 10/29/17 Jacob Suarez MD Referring Physician Nephrology 12/20/18 Ros Seay MD [employer] Cardiology 03/05/19 Abdifatah Villa MD [address] [facility] [address] [facility] [address] [place] [address] Consulting Physician Cardiology 09/01/20 Issa Clements MD [address] [facility] [address] [place] [address] Referring Physician General Surgery 09/01/20
--- OUTSIDE RECORDS SUMMARY | 2025-02-15 18:53 | XMS_ITS ---
Author Organization [facility] [address] Address [address] [place] [address] Care Team Providers Care Showplace Manager Name Role Phone David Coppola MD Primary Care Provider [phone] Jacob Suarez MD Unavailable [phone] Ros Seay MD Unavailable [phone] Abdifatah Villa MD Unavailable Issa Clements MD Unavailable [phone] Dialysis Access Sites Type Status Location [...] Routine) 12/23/2024 11:51 AM CDT Atherosclerosis of [place] arteries of extremities with rest pain, bilateral legs (HCC) Atherosclerosis of [place] arteries of extremities with rest pain, left leg (HCC) US ARTERIAL DOPPLER LOWER EXTREMITY BILATERAL Schedule Routine, Read Routine (OP Routine) 12/23/2024 11:17 AM CDT Atherosclerosis of [place] arteries of extremities with intermittent claudication, right leg Atherosclerosis of [place] arteries of extremities with rest pain, bilateral [...] HEPATITIS C ANTIBODY Routine 08/19/2020 12:07 PM INTERNATIONAL ACCOUNTING MANAGER ESRD (end stage renal disease) (HCC) HEMOGLOBIN A1C Routine 09/04/2019 12:14 AM INTERNATIONAL ACCOUNTING MANAGER from Last 3 Months or Most Recently [...] GIB. Patients daughter reports recent admission to [facility] due to concern for GIB. Patient followed up with her outpatient GI. Planning for EGD at the end of November - continue PPI. Assessment & Plan (11/21/2024 3:03 PM CDT): History of peptic ulcer with GIB. Patients daughter reports recent admission to [facility] due to concern for GIB. Patient followed up with her outpatient GI. Planning for EGD at the end of November - closely monitor for bleeding due to starting asa and Plavix as above - continue PPI Assessment & Plan (08/28/2024 1:08 PM INTERNATIONAL ACCOUNTING MANAGER): History of peptic ulcer with GIB Denies sx continue PPI Heart valve disease 04/06/2023 History of GI bleed 02/04/2023 Bradycardia 09/29/2022 Bleeding 09/29/2022 Idiopathic hypotension 09/13/2021 Complication of arteriovenous dialysis fistula 0 09/07/2020 Type 2 diabetes mellitus wit h diabetic peripheral angiopathy and gangrene, without long-term current use of insulin 08/21/2020 Assessment & Plan (08/28/2024 1:05 PM INTERNATIONAL ACCOUNTING MANAGER): Home regimen Januvia, tresiba 10 and Victoza. Reviewed PCP records noted hypoglycemia last hospital admit with basal insulins continued Will continue januvia and hold tresiba and victoza SSI Family history of ischemic h eart disease and other diseases of the circulatory system 11/27/2019 Critical limb ischemia of right lower extremity 10/14/2019 Overview (10/14/2019): Added automatically from request for surgery [id number] Assessment & Plan (08/28/2024 12:59 PM INTERNATIONAL ACCOUNTING MANAGER): S/p uncomplicated balloon angioplasty of the AT, [...] (10/14/2019): Added automatically from request for surgery [id number] Presence of Watchman left atrial appendage closu re device 08/29/2018 Atrial fibrillation, permanent 06/13/2018 Overview (06/13/2018): Added automatically from request for surgery [id number] Assessment & Plan (11/22/2024 1:43 PM CDT): Rate controlled and s/p Watchman due to prior GIB. - continue home coreg as below. Assessment & Plan (11/21/2024 3:39 PM CDT): Rate controlled and s/p Watchman due to prior GIB. - continue home coreg as below Assessment & Plan (08/28/2024 1:03 PM INTERNATIONAL ACCOUNTING MANAGER): Follows with [facility] cardiology. Rate controlled and s/p Watchman due to prior severe GIB Recently stopped coreg due to bradycardia ASA and plavix to start per IR recs post revascularization Assessment & Plan (07/24/2018 9:29 AM INTERNATIONAL ACCOUNTING MANAGER): Continue coreg. S/p Watchmann DAVIDA occluder implant for future deescalate anticoagulation. Continue apixiban for now as per EP. Post procedure CXR. 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 Resume as able. Assessment & Plan (11/21/2024 3:03 PM CDT): Continue home lisinopril and coreg Assessment & Plan (07/24/2018 9:27 AM INTERNATIONAL ACCOUNTING MANAGER): Continue home meds and dialysis. Hyperlipidemia associated [...] today Assessment & Plan (08/29/2024 4:04 PM INTERNATIONAL ACCOUNTING MANAGER): Routine M/W/F r brachial fistula (has required multiple dilations last at [facility] 07/2024 Feeling well post procedure denies dyspnea. Renal consulted for HD prior to discharge Assessment & Plan (07/24/2018 9:26 AM INTERNATIONAL ACCOUNTING MANAGER): HD as per renal consult. Resume outpt [...] often do you attend chur ch or moravian services? 1 to 4 times per year 09/04/2019 Do you belong to any clubs o r organizations such as advent groups, unions, fraternal or athletic groups, or [...] on file Legal Sex Female 12:39 PM INTERNATIONAL ACCOUNTING MANAGER Gender Identity Not on file Sexual Orientation [...] DATE: 12/23/2024 10:00 AM HISTORY: Atherosclerosis of [place] Arteries of Extremities with Rest Pain, Bilateral [...] DATE: 12/23/2024 10:00 AM HISTORY: Atherosclerosis of [place] Arteries of Extremities with Rest Pain, Bilateral [...] 0.23. Electronically signed by: Cezar Antonio MD us Anthony Gorman MD IMG US PROCEDURES [...] DATE: 12/23/2024 10:00 AM HISTORY: Atherosclerosis of [place] Arteries of Extremities with Rest Pain, Bilateral [...] DATE: 12/23/2024 10:00 AM HISTORY: Atherosclerosis of [place] Arteries of Extremities with Rest Pain, Bilateral [...] POCT ORDERABLES - DEV ICE Final Result [facility] [place] [address] * (ABNORMAL) POCT glucose (11/22/2024 8:28 AM CDT) Glucose, POC 230(H) 70 - 199 mg/dL Blood 11/22/2024 8:28 AM CDT 11/22/2024 8:28 AM CDT Shahnaz Heredia MD LAB POCT ORDERABLES - DEV ICE Final Result [facility] [place] [address] * (ABNORMAL) eGFR (11/22/2024 7:56 AM CDT) [...] GUADARRAMA LAB BLOOD ORDERABLES Final R esult [facility] Department [place] [address] * Hepatitis B Surface Antigen Blood (11/22/2024 7:56 AM CDT) HepBsAg Nonreactive Nonreactive Blood 11/22/2024 7:56 AM CDT 11/22/2024 8:36 AM CDT Nina Hopson MD LAB MICROB IOLOGY - GENERAL ORDERABLES Edited Result - Final [facility] Department [place] [address] * (ABNORMAL) CBC without differential (11/22/2024 7:56 AM CDT) WBC 7.32 3.80 - 9.90 K/cumm Hgb 8.6(L) 11.9 - 15.5 g/dL [facility] Hct 28.8(L) 35.6 - 45.5 % [facility] Plt 111(L) 150 - 400 K/cumm [facility] MPV 12.6(H) 9.1 - 12.3 fL [facility] RBC 2.91(L) 3.90 - 5.20 M/cumm [facility] MCV 99.0(H) 81.3 - 96.4 fL [facility] MCH 29.6 27.1 - 33.3 pg [facility] MCHC 29.9(L) 32.3 - 35.7 g/dL [facility] RDW CV 17.2(H) 11.1 - 14.9 % [facility] RDW SD 60.7(H) 35.7 - 48.1 fL [facility] NRBC abs 0.00 0.00 - 0.01 K/cumm [facility] Blood 11/22/2024 7:56 AM CDT 11/22/2024 8:37 AM CDT us Tomy GUADARRAMA LAB BLOOD ORDERABLES Final R esult [facility] Department [place] [address] * (ABNORMAL) Basic metabolic panel (11/22/2024 7:56 AM CDT) Sodium 131(L) 135 - 145 mmol/L Potassium, pl 5.5(H) 3.3 - 4.9 mmol/L [facility] Chloride 92(L) 97 - 110 mmol/L [facility] CO2 29 22 - 32 mmol/L [facility] Anion gap 10 2 - 15 mmol/L [facility] BUN 58(H) 6 - 25 mg/dL [facility] Creatinine 6.13(H) 0.60 - 1.10 mg/dL [facility] Glucose 257(H) 70 - 199 mg/dL [facility] Comment: Interpretive Data Fasting glucose >/= [...] Calcium 8.8 8.5 - 10.3 mg/dL [facility] Blood 11/22/2024 7:56 AM CDT 11/22/2024 8:37 AM CDT us Tomy GUADARRAMA LAB BLOOD ORDERABLES Final R esult [facility] Department [place] [address] * (ABNORMAL) eGFR (11/21/2024 10:36 PM CDT) [...] Fermin NP LAB BLOOD ORDERABLES Final Result [facility] Department [place] [address] * (ABNORMAL) CBC without differential (11/21/2024 10:36 PM CDT) [facility] WBC 8.51 3.80 - 9.90 K/cumm Hgb 8.9(L) 11.9 - 15.5 g/dL [facility] Hct 29.8(L) 35.6 - 45.5 % [facility] Plt 112(L) 150 - 400 K/cumm [facility] MPV 12.7(H) 9.1 - 12.3 fL [facility] RBC 3.01(L) 3.90 - 5.20 M/cumm [facility] MCV 99.0(H) 81.3 - 96.4 fL [facility] MCH 29.6 27.1 - 33.3 pg [facility] MCHC 29.9(L) 32.3 - 35.7 g/dL [facility] RDW CV 17.2(H) 11.1 - 14.9 % [facility] RDW SD 60.3(H) 35.7 - 48.1 fL [facility] NRBC abs 0.02(H) 0.00 - 0.01 K/cumm [facility] Blood 11/21/2024 10:3 6 PM CDT 11/21/2024 10:49 PM CDT Christina Fermin NP LAB BLOOD ORDERABLES Final Result [facility] Department [place] [address] * (ABNORMAL) Phosphorus (11/21/2024 10:36 PM CDT) Phosphorus, pl 6.5(H) 2.3 - 4.5 mg/dL Blood 11/21/2024 10:3 6 PM CDT 11/21/2024 10:49 PM CDT us Robles Alicea MD LAB BLOOD ORDERABLES Gertrude l Result [facility] Department [place] [address] * (ABNORMAL) Basic metabolic panel (11/21/2024 10:36 PM CDT) Pathologist [facility] Sodium 135 135 - 145 mmol/L Potassium, pl 5.5(H) 3.3 - 4.9 mmol/L [facility] Chloride 93(L) 97 - 110 mmol/L [facility] CO2 29 22 - 32 mmol/L [facility] Anion gap 13 2 - 15 mmol/L [facility] BUN 57(H) 6 - 25 mg/dL [facility] Creatinine 5.81(H) 0.60 - 1.10 mg/dL [facility] Glucose 257(H) 70 - 199 mg/dL [facility] Comment: Interpretive Data Fasting glucose >/= [...] 2022. Calcium 9.6 8.5 - 10.3 mg/dL [facility] Blood 11/21/2024 10:3 6 PM CDT 11/21/2024 10:49 PM CDT us Christina Fermin NP LAB BLOOD ORDERABLES Final Result [facility] [place] [address] * POCT glucose (11/21/2024 8:23 PM CDT) Glucose, POC 119 70 - 199 mg/dL Blood 11/21/2024 8:23 PM CDT 11/21/2024 8:23 PM CDT Shahnaz Heredia MD LAB POCT ORDERABLES - DEV ICE Final Result Performing Organization Address [facility] [place] [address] * POCT glucose (11/21/2024 5:24 PM CDT) Glucose, POC 188 70 - 199 mg/dL Blood 11/21/2024 5:24 PM CDT 11/21/2024 5:24 PM CDT Shahnaz Heredia MD LAB POCT ORDERABLES - DEV ICE Final Result Performing Organization Address [facility] [place] [address] * IR Angiogram Lower Extremity Right (11/21/2024 [...] was obtained. Prior to beginning the procedure, [place] Protocol was performed to confirm the patient's [...] of the patent vessel was recorded. The 5-Guatem[place] catheter was placed in the superficial femoral artery and the right lower extremity angiogram was performed in stations to the foot A 45 cm 6-Guatemalan sheath was advanced to the superficial femoral [...] was obtained. Prior to beginning the procedure, [place] Protocol was performed to confirm the patient's [...] of the patent vessel was recorded. The 5-Guatem[place] catheter was placed in the superficial femoral artery and the right lower extremity angiogram was performed in stations to the foot A 45 cm 6-Guatemalan sheath was advanced to the superficial femoral [...] 318(H) 123 - 168 sec POC Performer [id number] [facility] POC Device Number [id number] [facility] Blood 11/21/2024 10:3 6 AM CDT 11/21/2024 10:36 AM CDT Result [facility] Shahnaz Heredia MD LAB POCT ORDERABLES - DEV ICE Final Result Performing Organization Address [facility] de Phone Number [facility] [place] [address] * (ABNORMAL) POCT Activated clotting time, low range (11/21/2024 9:54 AM CDT) ACT 331(H) 123 - 168 sec POC Performer [id number] [facility] POC Device Number [id number] [facility] Blood 11/21/2024 9:54 AM CDT 11/21/2024 9:54 AM CDT Result [facility] Shanhaz Heredia MD LAB POCT ORDERABLES - DEV ICE Final Result Performing Organization Address [facility] Co de Phone Number [facility] [place] [address] * (ABNORMAL) POCT Activated clotting time, low range (11/21/2024 9:20 AM CDT) ACT 360(H) 123 - 168 sec POC Performer [id number] [facility] POC Device Number [id number] [facility] Blood 11/21/2024 9:20 AM CDT 11/21/2024 9:20 AM CDT us Shahnaz Heredia MD LAB POCT ORDERABLES - DEV ICE Final Result Performing Organization Address [facility] Co de Phone Number [facility] Department [place] [address] * (ABNORMAL) eGFR (11/21/2024 6:31 AM CDT) [...] ORDERABLES Fi nal Result Performing Organization Address City/[facility]/ZIP Co de Phone Number [facility] Department [place] [address] * (ABNORMAL) Differential, auto (11/21/2024 6:31 AM CDT) Neutrophil abs 5.81 1.50 - 6.50 K/cumm Imm gran abs 0.03 0.00 - 0.10 K/cumm [facility] Lymphocyte abs 1.28 0.80 - 3.30 K/cumm [facility] Monocyte abs 0.89(H) 0.20 - 0.80 K/cumm [facility] Eosinophil abs 0.05 0.00 - 0.50 K/cumm [facility] Basophil abs 0.03 0.00 - 0.10 K/cumm [facility] Neutrophil pct 71.8 % [facility] Comment: Interpretive Data Percent cell count reference ranges are not reported, since discordance with absolute values may lead to misinterpretation of CBC data. Current Interpretive Data was last revised on 2017. Imm gran pct 0.4 % [facility] Comment: Interpretive Data Percent cell count reference ranges are not reported, since discordance with absolute values may lead to misinterpretation of CBC data. Current Interpretive Data was last revised on 2017. Lymphocyte pct 15.8 % [facility] Comment: Interpretive Data Percent cell count reference ranges are not reported, since discordance with absolute values may lead to misinterpretation of CBC data. Current Interpretive Data was last revised on 2017. Monocyte pct 11.0 % [facility] Comment: Interpretive Data Percent cell count reference ranges are not reported, since discordance with absolute values may lead to misinterpretation of CBC data. Current Interpretive Data was last revised on 2017. Eosinophil pct 0.6 % [facility] Comment: Interpretive Data Percent cell count reference ranges are not reported, since discordance with absolute values may lead to misinterpretation of CBC data. Current Interpretive Data was last revised on 2017. Basophil pct 0.4 % [facility] Comment: Interpretive Data Percent cell count reference ranges are not reported, since discordance with absolute values may lead to misinterpretation of CBC data. Current Interpretive Data was last revised on 2017. Blood 11/21/2024 6:31 AM CDT 11/21/2024 6:47 AM CDT us Anthony Gorman MD LAB BLOOD ORDERABLES Fi nal Result [facility] Department [place] [address] * (ABNORMAL) CBC with auto differential (11/21/2024 6:31 AM CDT) Pathologist [facility] WBC 8.09 3.80 - 9.90 K/cumm Hgb 9.9(L) 11.9 - 15.5 g/dL [facility] Hct 32.3(L) 35.6 - 45.5 % [facility] Plt 134(L) 150 - 400 K/cumm [facility] MPV 12.6(H) 9.1 - 12.3 fL [facility] RBC 3.31(L) 3.90 - 5.20 M/cumm [facility] MCV 97.6(H) 81.3 - 96.4 fL [facility] MCH 29.9 27.1 - 33.3 pg [facility] MCHC 30.7(L) 32.3 - 35.7 g/dL [facility] RDW CV 17.2(H) 11.1 - 14.9 % [facility] RDW SD 60.4(H) 35.7 - 48.1 fL [facility] NRBC abs 0.02(H) 0.00 - 0.01 K/cumm [facility] Blood 11/21/2024 6:31 AM CDT 11/21/2024 6:47 AM CDT us Anthony Gorman MD LAB BLOOD ORDERABLES Fi nal Result [facility] Department [place] [address] * (ABNORMAL) Lipid panel (11/21/2024 6:31 AM CDT) [facility] Cholesterol 99 30 - 199 mg/dL Comment: [...] revised on 2018. Triglycerides 90 <=149 mg/dL [facility] Comment: Interpretive Data Ages < or [...] revised on 2018. HDL 35(L) >=40 mg/dL [facility] Comment: Interpretive Data Ages < or [...] on 2018. LDL, calculated 46 <=129 mg/dL [facility] Comment: Interpretive Data Ages < or [...] revised on 2024. Non-HDL Cholesterol 64 mg/dL [facility] Comment: Interpretive Data Ages < or [...] last revised on 2018. Chol/HDL ratio 3 [facility] Blood 11/21/2024 6:31 AM CDT 11/21/2024 6:47 AM CDT Anthony Gorman MD LAB BLOOD ORDERABLES Fi nal Result [facility] Department [place] [address] * (ABNORMAL) Basic metabolic panel (11/21/2024 6:31 AM CDT) Sodium 135 135 - 145 mmol/L Potassium, pl 4.9 3.3 - 4.9 mmol/L [facility] Chloride 92(L) 97 - 110 mmol/L [facility] CO2 32 22 - 32 mmol/L [facility] Anion gap 11 2 - 15 mmol/L [facility] BUN 50(H) 6 - 25 mg/dL [facility] Creatinine 5.26(H) 0.60 - 1.10 mg/dL [facility] Glucose 231(H) 70 - 199 mg/dL [facility] Comment: Interpretive Data Fasting glucose >/= [...] 2022. Calcium 10.3 8.5 - 10.3 mg/dL [facility] Blood 11/21/2024 6:31 AM CDT 11/21/2024 6:47 AM CDT Anthony Gorman MD LAB BLOOD ORDERABLES Fi nal Result Performing Organization Address [facility] Co de Phone Number [facility] [place] [address] * Hepatitis C antibody (08/19/2020 12:07 PM INTERNATIONAL ACCOUNTING MANAGER) Pathologist [facility] Hep C Ab Nonreactive Nonreactive [facility] Comment:Antibodies to HCV no t detected. Does NOT exclude the possibility of recent exposure to HCV. Blood specimen (specimen) 08/19/2020 12:07 PM INTERNATIONAL ACCOUNTING MANAGER 08/19/2020 12:15 PM INTERNATIONAL ACCOUNTING MANAGER Humza Trevizo MD LAB MICROB IOLOGY - GENERAL ORDERABLES Edited Result - Final Performing Organization Address [facility] Co de Phone Number [facility] [place] [address] * (ABNORMAL) Hemoglobin A1c (09/04/2019 12:14 AM INTERNATIONAL ACCOUNTING MANAGER) Hgb A1C 8.2(H) 4.0 - 5.6 % [facility] Estimated Average Glucose 189 mg/dL [facility] Comment: The ADA recommends reporting an estimated Average Glucose (eAG) with all Hemoglobin A1c results using the equation derived from a study of 507 normal and diabetic adults. Minority populations were underrepresented and children were not included. (Diabetes Care 31:3836-1023, 2008). The eAG is not equivalent to a fasting glucose. Blood specimen (specimen) 09/04/2019 12:14 AM INTERNATIONAL ACCOUNTING MANAGER 09/04/2019 12:58 AM INTERNATIONAL ACCOUNTING MANAGER us Brandin Pena MD LAB BLOOD ORDERABLES Final Result [facility] [place] [address] from Last 3 Months or Most Recently Relevant to Health Maintenance
--- OUTSIDE RECORDS SUMMARY | 2025-02-15 18:55 | XMS_ITS | Clinical Summary ---
Author Organization [facility] Address [address] [facility] [place] [address] Care Team Providers Care Maintainability Engineer Name Role Phone David Coppola MD Primary Care Provider [phone]- [phone] David Coppola MD Unavailable [phone] David Coppola MD Unavailable [phone] Virginie Corea RN Unavailable [phone] Source Comments [facility],non-owned Affiliates and Associated Physician Practices is amultiple site organization consisting of ambulatory clinics and hospital sitesin [place], [place], [place] and [place]. This disclosure is being madepursuant to the Care Everywhere program and may not contain all information available regarding this patient. Last updated 18.[facility] Allergies Active Allergy Reactions Criticality [...] vitamin D, ergocalciferol , (DRISDOL) 1.25 MG (16505 UT) capsule Take 1 (one) capsule by [...] included. Listing date: Not yet listed Referring Software Implementation Project Manager: Dr. Suarez Dialysis Type and Start Date: [...] lives with her Estela. She speaks fluent Vietnamese. She has 3 children who live in [place] and [facility]. Her support system is her [...] (Bezet) ms 462 ms Final Calculated [place] degrees 82 degrees Final Calculated T axis degrees 53 degrees Final EKG Interp Final ATRIAL FIBRILLATION NONSPECIFIC ST ABNORMALITY , PROBABLY DIGITALIS EFFECT ABNORMAL ECG NO PREVIOUS ECGS AVAILABLE Confirmed by Fritz GANT, MIKE ([id number]), dictionary editor Joseph Ingram ([id number]) on 04/04/2018 1:32:49 PM Echo: 03/28/18 CONCLUSION: There is moderate concentric left ventricular hypertrophy. The left ventricular ejection fraction is estimated at 65 %. There are no regional wall motion abnormalities present. Estimated right ventricular systolic pressure is 39 mmHg. Severe biatrial enlargement Mild dilated proximal ascending aorta. DSE: n/a will need [facility] Cardiac Cath: Will need d/t length [...] Completed at OSH on 03/20/18 Cardiac Catheterization03/20/2018 [facility] Result Narrative PERIPHERAL ANGIOGRAM AND INTERVENTION REPORT [...] groin hematoma, retroperitoneal bleed, vessel perforation; periprocedural CT, stroke, contrast induced nephropathy, and even . [...] artery access site 8. Moderate Sedation (CPT 82902) MODERATE SEDATION: Midazolam 2 mg , Fentanyl 50 mcg, start time 1157 stop time 1318, total direct [id number] monitoring of conscious sedation 81 minutes (CPT 75310) TRAINED OBSERVER: Mena Scruggs RN was trained office over for moderate sedation. ACCESS SITE: Right common femoral artery PROCEDURE: After obtaining informed consent, patient was brought to the clinical laboratory director and prepped and draped in the usual sterile manner. After local anesthesia with lidocaine, right common femoral artery access was taken with micropuncture needle followed by insertion of a 5 Vincentian sheath over a 0.035 inch wire. Selective right common femoral angiogram with distal runoff was performed through the 5 Vincentian sheath. After this, a 5 Vincentian IM catheter was advanced in the distal abdominal aorta, distal abdominal aortogram with bilateral iliac runoff was performed. The same catheter was pointed towards the left common iliac artery, selective left common iliac angiogram with distal runoff was performed. During intervention, selective left common femoral angiogram and superficial femoral angiogram was performed using the long 6 Vincentian sheath. The angiographic findings and details of [...] intervention on the same vessel. The 5 Vincentian sheath was exchanged with a long 90 cm sheath over 035 glide wire. The tip of the long sheath was position in the proximal popliteal artery. Patient received heparin for procedural anticoagulation, ACT was monitored throughout the procedure. Patient also received aspirin loading dose of clopidogrel 600 mg in the clinical laboratory director. The totally occluded, calcified left anterior tibial [...] received dental clearance PPD: Colonoscopy: Completed at [facility] 12/02/2015 Mammo: Pap: Dental: SW: 03/28/18 Clinical Social Work Impression: It is the impression of this social work specialist that Shasta Obando has several positive factors for Kidney transplant candidacy from a psychosocial perspective. Pt has a good understanding of her disease and motivation for kidney transplant. Pt appears to have adequate insurance and financial situation (children provide assistance as needed) for post transplant needs. Pt has identified adequate support system and appropriate discharge plan. No concerns regarding substance abuse identified. Plan: group care worker to provide supportive services as needed. No f/u indicated at this time.Patient appears to be a reasonable candidate for transplant from a psychosocial perspective. Post transplant arrangement forms are needed prior to being listed. Psychiatric Consult Recommended: No Transplant Global Consumer Sector Vice President: Nicole Tomas LMSW RD: 03/28/18 BMI= 28.51, overweight - Pt is considered to be a good candidate for a Kidney Transplant from a Nutrition standpoint. Recommendations/Interventions: Pt instructed to continue to work with Renal RD at HD on diet and to be compliant. Lindsay Gardner Encounter for other preprocedural examination Overview (10/08/2017): Listing date: Not yet listed Referring Software Implementation Project Manager: Dr. Suarez Dialysis Type and Start Date: [...] lives with her Estela. She speaks fluent Vietnamese. She has 3 chilren who live in [place] and [facility]. Her support system is her [...] Transplant surgery appt: Consults: cardiology consult with [facility] Notes: Not yet presented Evaluation Testing Date and Results: Labs: PTH: A1c: Glucose: PSA: GFR: Serologies: CMV Igg: EBV Igg: Albumin: Tox Screen: PRA: Echo: DSE: Cardiac Cath: CXR: Pano: US: PPD: Negative at on 05/08/2016 Colonoscopy: Completed at [facility] 12/02/2015 Mammo: Pap: Dental: SW: RD: Abnormal finding on imaging 06/15/2015 Overview (06/15/2015): Filling defect on venography of central veins. Need to rule out aortic arch aneurysm. Complication of arteriovenous dialysis fistula PVD (peripheral vascular disease) Encounters Date Type Department Care Team Description 02/03/2025 Orders Only [facility] [address] 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 Gender Identity Not on file Sexual [...] Info) Description 03/10/2025 11:00 AM CDT Appointment [facility] Health Vascular Services [address] [facility], [address] [place] [address] [place] [address] [place] [phone] [place] [address] [facility] [address] [place] [phone] Cristo Fontenot MD [address] [place] [address] 03/17/2025 1:00 PM CDT Procedure visit [facility] [address] [place] [phone] 03/17/2025 1:30 PM CDT Office Visit [facility] [address] [place] [phone] Avis Dumont, PROPERTY SUPERVISOR-TOP COATER [address] [place] [address] [place] [address] Health Maintenance Due Date Last [...] this topic Medical Devices Implanted Type Area Jewel Bearing Grinder Device Identifier Shelf Expiration Date Model / Serial / Lot Duraflow 2 Hemodialysis Catheter Implanted:Qty: 1 on 02/22/2015 by David Buitrago MD at [facility] Right: Chest 06/07/2017 [id number] / / [id number] [place] Acuseal Vascular Graft Implanted:Qty: 1 on 04/02/2018 by David Buitrago MD at [facility] Left: Arm 10/29/2020 [id number] / / [id number] Procedures Procedure Name Priority Date/Time Associated Diagnosis [...] glen Non-reac tive 03/28/2018 2:50 PM CDT [facility] Comment: Hepatitis C Antibody [...] LAB - CHEMISTRY ORDERABLES Fi nal Result [address] [phone] from Last 3 Months or Most Recently Relevant to Health Maintenance Insurance MED[place]ID - [place] [facility] MANAGED MEDICARE ADV MEDICAID - OUT OF STATE Advance Directives Documents on File Type Date Recorded Patient Care Assistant Expl anation Adv Directive/Living Will/POA 09/18/2017 * Full Code (Latest Code Status on File) Date Activated Date Inactivated Comments 02/22/2015 4:27 PM 02/23/2015 5:53 PM Care Teams Maintainability Engineer Relationship Specialty Start Date End Date David Coppola MD [address] [place] [phone] PCP - General 08/15/16 David Coppola MD [address] [place] [phone] Family Medicine 02/08/15 David Coppola MD [address] [place] [phone] Family Medicine 08/15/16 Virginie Corea, ABENA Cabin Supervisor 02/23/15
--- OUTSIDE RECORDS SUMMARY | 2025-02-15 18:55 | XMS_ITS | Encounter Summary ---
Author Organization [facility] Healthcare Address [address] [place] [address] Care Team Providers Care Hull Outfit Supervisor Name Role Phone David Coppola MD Primary Care Provider [phone] aJcob Suarez MD Unavailable [phone] Marnie Lara RN Unavailable [phone] Ros Seay MD Unavailable [phone] Johana Edmond RN Unavailable Abdifatah Villa MD Unavailable Issa Clements MD Unavailable [phone] Encounter Details Date Type Department Care Team (Late st Contact Info) Description 12/11/2018 Orders Only [facility] Health Information Management [address] [place] [address] Scanning, Provider Social History Tobacco Use Types Packs/Day Years Used Date Smoking Tobacco: Never Smokeless Tobacco: Never Alcohol Use Standard Drinks/Week Comments No 0 (1 standard drink = 0.6 oz pur e alcohol) Comments No Sex and Gender Information Value Date Recorded Sex Assigned at Not on file Legal Sex Female 12:39 PM SHIPPING AND RECEIVING MATERIAL HANDLER Gender Identity Not on file Sexual Orientation [...] Influenza, adult 09/04/2019 09/04/2019 09/11/2019 3:05 AM SHIPPING AND RECEIVING MATERIAL HANDLER Abscess/Wound/Cellulitis 10/16/2019 10/16/2019 3:05 AM CDT documented as of this encounter Care Teams Hull Outfit Supervisor Relationship Specialty Start Date End Date David Coppola MD PCP - General Family Medicine 10/29/17 Jacob Suarez MD Referring Physician Nephrology 12/20/18 Marnie Lara, RN Registered Nurse Lamp Inspector 12/20/1809/03 Ros Seay MD Vice President Business & Corporate Development Cardiology 03/05/19 Johana Edmond, RN [address] [facility] [address] [place] [address] Lamp Inspector 08/21/19 Abdifatah Villa MD [address] [place] [address] Consulting Physician Cardiology 09/01/20 Issa Clements MD [address] [facility] [address] [place] [address] Referring Physician General Surgery 09/01/20 documented as of this encounter
--- OUTSIDE RECORDS SUMMARY | 2025-02-15 18:55 | XMS_ITS | Clinical Summary ---
Author Organization [facility] Address [facility]ly [facility] [place] [address] Care Team Providers Care Dredge Mechanic Name Role Phone David Coppola MD Primary Care Provider [phone] Social History Tobacco Use Types Packs/Day Years [...] patient's age to complete this topic Insurance [facility] MEDICAID Care Teams Dredge Mechanic Relationship Specialty Start Date End Date David Coppola MD [facility] [address] [address] PCP - General FAMILY PRACTICE 06/13/22
--- OUTSIDE RECORDS SUMMARY | 2025-02-15 18:56 | XMS_ITS | Clinical Summary ---
Author Organization [facility] Address [address] [place] [address] Phone Care Team Providers Care Education Counselor Name Role Phone Unavailable Primary Care Provider Unavailabl e Medications imipramine (TOFRANIL) 25 MG tablet 0 03/04/2014 Active pioglitazone (ACTOS) 15 MG tablet 03/04/2014 Active amLODIPine (NORVASC) 5 MG tablet 03/04/2014 Active aspirin (ASPIR-LOW) 81 MG EC tablet 03/04/2014 Active lovastatin (MEVACOR) 20 MG tablet 03/04/2014 Active ergocalciferol (VITAMIN D-2) 20639 units capsule 1 weekly 03/04/2014 Active lisinopril (PRINIVIL,ZESTR IL) 20 MG tablet 1 daily 12 08/23/2017 Active diclofenac (VOLTAREN) 1 % topical gel 03/04/2014 Active omega-3 (FISH OIL) 1000 MG capsule 03/04/2014 Active clotrimazole (LOTRIMIN) 1 % cream 03/04/2014 Active ferrous sulfate 325 (65 Fe) MG tablet 03/04/2014 Active carvedilol (COREG) 3.125 MG tablet 1 ibid 12 07/17/2017 Active Methylcobalamin (M05-SPROKZ) 1 MG chewable tablet half tab daily [...] Comments Blood Pressure 119/62 09/11/2018 12:01 AM ASBESTOS WORKER Pulse 72 02/01/2015 12:01 AM CDT Temperature 36.8 C (98.3 F) 02/01/2015 12:01 AM CDT Respiratory Rate - - Oxygen Saturation - - Inhaled Oxygen Concentration - - Weight 63.5 kg (140 lb) 09/11/2018 12:01 AM ASBESTOS WORKER Height 149.9 cm (4' 11) 09/11/2018 12:01 AM ASBESTOS WORKER Body Mass Index 28.28 09/11/2018 12:01 AM ASBESTOS WORKER Plan of Treatment Health Maintenance Due Date Last Done Comments Pneumococcal PPSV23/PCV13 65 + Years / Low and Medium Risk (1 of 2 - PCV) 1996 Influenza Vaccine (#1) 2025
--- OUTSIDE RECORDS SUMMARY | 2025-02-15 18:56 | XMS_ITS | Clinical Summary ---
Author Organization [facility] Address [address] [place] [address] Phone Care Team Providers Care Medical Record Librarians Teacher Name Role Phone David Coppola MD Primary Care Provider [phone] Allergies Active Allergy Reactions Criticality Noted Date [...] 1 Tablet by mouth daily. Active B Zoykdfb-G-Chgox Acid (Triphrocaps) 1 MG Capsule Take 1 Capsule by mouth daily. Active ergocalciferol (VITAMIN D) 35151 UNIT Capsule Take 1 Capsule by mouth [...] 12 units Indications: Type 2 Diabetes Active [place]-3 Fatty Acids (FISH OIL PO) Take 1 Capsule by mouth daily. Active Encounters Date Type Department Care Team Description 01/22/2025 2:00 PM CDT Home Care Visit [address] [address] Manuela Martin RN SN - OASIS DISCHARGE 01/15/2025 2:00 PM CDT Home Care Visit [address] [address] Manuela Martin RN SN - PRIORITY VISIT 01/13/2025 Home Care Visit [address] [address] Lindsay Boyd RN CARE CONFERENCE 01/07/2025 Home Care Visit [address] [address] Mendy Kenny RN CASE COMMUNICATION 01/06/2025 9:00 AM CDT Home Care Visit [address] [address] Manuela Martin RN SN - WOUND VISIT 01/06/2025 Home Care Visit [address] [address] Mendy Kenny, ABENA TELEPHONE ENCOUNTER 01/06/2025 Home Care Visit [address] [address] Lindsay Boyd, RN CARE CONFERENCE 01/02/2025 Home Care Visit [address] [address] Claudia Aviles OT OT - DISCHARGE SUMMARY 01/01/2025 2:00 PM CDT Home Care Visit [address] [address] Mendy Kenny, ABENA SN - PRIORITY VISIT 12/26/2024 9:00 AM CDT Home Care Visit [address] [address] Gillian June, PT PT - DISCIPLINE DISCHARGE 12/26/2024 Travel 12/25/2024 2:30 PM CDT Home Care Visit [address] [address] Adele Fang OTA OT - DISCIPLINE DISCHARGE 12/25/2024 2:00 PM CDT Home Care Visit [address] [address] Manuela Martin RN SN - PRIORITY VISIT 12/25/2024 Home Care Visit [address] [address] Adele Fang, ROSALIO CASE COMMUNICATION 12/22/2024 9:30 AM CDT Home Care Visit [address] [address] Joann Hudson PTA PT - HOME VISIT 12/18/2024 4:00 PM CDT Home Care Visit [address] [address] Manuela Martin, RN SN - PRIORITY VISIT 12/18/2024 2:30 PM CDT Home Care Visit [address] [address] Adele Fang OTA OT - HOME VISIT 12/18/2024 2:30 PM CDT Home Care Visit [address] [address] Joann Hudson, PRESSURE CONTROL SUPERVISOR PT - HOME VISIT 12/17/2024 Home Care Visit [address] [address] Gillian June, PT CASE COMMUNICATION 12/16/2024 12:30 PM CDT Home Care Visit [address] [address] Adele Fang OTA OT - HOME VISIT 12/16/2024 9:30 AM CDT Home Care Visit [address] [address] Gillian June, PT PT - REASSESSMENT 12/16/2024 Travel 12/15/2024 Home Care Visit [address] [address] Mendy Kenny RN TELEPHONE ENCOUNTER 12/12/2024 10:00 AM CDT Home Care Visit [address] [address] Mendy Kenny RN SN - PRIORITY VISIT 12/11/2024 2:30 PM CDT Home Care Visit [address] [address] Joann Hudson, PRESSURE CONTROL SUPERVISOR PT - HOME VISIT 12/11/2024 2:00 PM CDT Home Care Visit [address] [address] Adele Fang OTA OT - HOME VISIT 12/09/2024 2:30 PM CDT Home Care Visit [address] [address] Joann Hudson, PRESSURE CONTROL SUPERVISOR PT - HOME VISIT 12/07/2024 Home Care Visit [address] [address] Lindsay Boyd RN CARE CONFERENCE 12/02/2024 3:30 PM CDT Home Care Visit [address] [address] Mendy Kenny, ABENA SN - PRIORITY VISIT 11/29/2024 Home Care Visit [address] [address] Lindsay Boyd, RN TELEPHONE ENCOUNTER 11/28/2024 9:00 AM CDT Home Care Visit [address] [address] Gillian June, PT PT - INITIAL EVALUATION 11/28/2024 Travel 11/27/2024 5:00 PM CDT Home Care Visit [address] [address] Claudia Aviles OT OT - INITIAL EVALUATION 11/27/2024 1:30 PM CDT Home Care Visit [address] [address] Lindsay Boyd, RN SN - OASIS START OF CARE 11/27/2024 Plan of Care Documentation [address] [address] from Last 3 Months Social History Tobacco Use Types Packs/Day Years Used Date Smoking Tobacco: Never Smokeless Tobacco: Never Comments No Sex and Gender Information Value Date Recorded Sex Assigned at Not on file Legal Sex Female 3:43 PM TOP DISTRIBUTION EXECUTIVE Gender Identity Not on file Sexual Orientation [...] Weight 48.9 kg (107 lb 12.8 oz) 01/22/2025 1:59 PM CDT Height 142.2 cm (4' [...] 05/05/2022, Additional history exists Influenza Immunization (#1) 2025 08/2 03/2024, 05/02/2023, 03/24/2020, Additional history exists Hepatitis C [...] to complete this topic Insurance [facility] Advance Directives * Full Code (Latest Code Status on File) Date Activated Date Inactivated Comments 12/04/2024 3:52 PM Care Teams Medical Record Librarians Teacher Relationship Specialty Start Date End Date David Coppola MD [address] [facility] [address] [place] [address] PCP - General Family Medicine 11/22/24
--- OUTSIDE RECORDS SUMMARY | 2025-02-15 18:56 | XMS_ITS | Encounter Summary ---
Author Organization [facility] Address [address] [facility] [place] [address] Care Team Providers Care Billposting Supervisor Name Role Phone David Coppola MD Primary Care Provider + [phone] David Coppola MD Unavailable [phone] David Coppola MD Unavailable [phone] Virginie Corea RN Unavailable [phone] Encounter Details Date Type Department Care Team (Late st Contact Info) Description 03/19/2023 Telephone [facility] . Wound Care [address] [facility] , [address] [phone] Lima Martins Social History Tobacco Use Types Packs/Day Years Used Date Smoking Tobacco: Never Smokeless Tobacco: Never Alcohol Use Standard Drinks/Week Comments No 0 (1 standard drink = 0.6 oz pur e alcohol) Comments No Sex and Gender Information Value Date Recorded Sex Assigned at Not on file Legal Sex Female 5:40 PM STUNNER Gender Identity Not on file Sexual Orientation [...] Description 03/10/2025 11:00 AM CDT Appointment [facility] Vascular Services [address] [facility], [address] [place], [place] [phone] [place] [address] [facility] [address] [place] [phone] [place] [address] [facility] [address] [place] [phone] Cristo Fontenot MD [address] [place] [address] 03/17/2025 1:00 PM CDT Procedure visit [facility] [address] [place] [phone] 03/17/2025 1:30 PM CDT Office Visit [facility] - [facility] [address] [place] [phone] Avis Dumont, COT ASSEMBLER-GYMNASTICS COACH [address] [place] [address] documented as of this encounter Visit Diagnoses Not on filedocumented in this encounter Care Teams Billposting Supervisor Relationship Specialty Start Date End Date David Coppola MD [address] [place] [phone] PCP - General 08/15/16 David Coppola MD [address] [place] [phone] Family Medicine 02/08/15 David Coppola MD [address] [place] [phone] Family Medicine 08/15/16 Virginie Corea, ABENA Rivet Heater Gas 02/23/15 documented as of this encounter
--- OUTSIDE RECORDS SUMMARY | 2025-02-15 18:56 | XMS_ITS | Encounter Summary ---
Author Organization [facility] Healthcare Address [address] [place] [address] Care Team Providers Care Clay Caster Name Role Phone David Coppola MD Primary Care Provider [phone] Jacob Suarez MD Unavailable [phone] Ros Seay MD Unavailable [phone] Abdifatah Villa MD Unavailable Issa Clements MD Unavailable [phone] Encounter Details Date Type Department Care Team (Late st Contact Info) Description 11/19/2024 Telephone [facility] Radiology [address] [place] [address] Yaritza Golden RN Social History Tobacco Use [...] often do you attend chur ch or orthodox services? 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 Gender Identity Not on file Sexual Orientation Not on file documented as of this encounter Plan of Treatment Scheduled Procedures Name Priority Associated Diagnoses Date/Ti me TRANSPLANT KIDNEY ESRD (end stage renal disease) (HCC) documented as of this encounter Visit Diagnoses Not on filedocumented in this encounter Care Teams Clay Caster Relationship Specialty Start Date End Date David Coppola MD PCP - General Family Medicine 10/29/17 Jacob Suarez MD Referring Physician Nephrology 12/20/18 Ros Seay MD Head Men'S Tennis Coach Cardiology 03/05/19 Abdifatah Villa MD [address] [place] [address] Consulting Physician Cardiology 09/01/20 Issa Clements MD [address] [facility] [address] [place] [address] Referring Physician General Surgery 09/01/20 documented as of this encounter
--- NOTE | 2025-02-15 20:26 | ED.ABDPAIN ---
HPI - Abdominal Pain General Chief Complaint: Abdominal Pain Stated Complaint: constipation x5 days Time Seen by Provider: 02/15/25 20:03 Source: patient and family Mode of arrival: wheelchair Limitations: no limitations History of Present Illness HPI narrative: This is a 79-year-old female that presents to the emergency department for constipation. She was just discharged from our hospital this afternoon. She had not had a bowel movement in 5 days despite stool softeners and Miralax. Related Data Home Medications ?Medication ?Instructions ?Recorded ?Confirmed ?Last Taken ?Type acetaminophen 500 mg tablet See Rx Instructions PO Q4H PRN Pain 02/20/20 02/12/25 06/05/23 History (Acetaminophen Extra Strength) atorvastatin 40 mg tablet 40 mg PO DAILY 10/25/21 02/12/25 12/03/24 History vitamin B complex and vitamin C 1 cap PO DAILY 10/25/21 02/12/25 12/03/24 History no.20-folic acid 1 mg capsule (Renal Caps) liraglutide 0.6 mg/0.1 mL (18 mg/3 1.2 mg subcut HS 06/06/23 02/12/25 12/03/24 History mL) subcutaneous pen injector (5 Screens Mediaza 2-Agustín) clotrimazole 1 % topical cream 1 applic topical Q12H 09/27/23 02/12/25 12/03/24 History (Antifungal (clotrimazole)) biotin 5 mg capsule 5 mg PO DAILY 10/08/24 02/12/25 12/03/24 History diclofenac sodium 1 % topical gel 2 g topical QID PRN discomfort 02/12/25 02/12/25 Unknown History (Arthritis Pain (diclofenac)) Allergies Allergy/AdvReac Type Severity Reaction Status Date / Time cephalexin Allergy Mild Rash Verified 02/11/25 13:22 enalapril Allergy Unknown cough Verified 02/11/25 13:22 pioglitazone Allergy Unknown Unknown Verified 02/11/25 13:22 cefazolin AdvReac Mild nausea/dizz Verified 02/11/25 13:22 iness tramadol AdvReac Unknown hallucinati Verified 02/11/25 13:22 ons gabapentin AdvReac Hallucinati Verified 02/11/25 13:22 ng Review of Systems Review of Systems: All systems reviewed & are unremarkable except as noted in HPI and below PMFSH Past Medical History Medical History 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 Spinal stenosis at L4-L5 level High-grade central canal stenosis noted on MRI February 2017 Pulmonary hypertension Echocardiogram August 2019: EF 65-70 %, indeterminate left ventricular diastolic function, mild biatrial enlargement, mild mitral valve regurgitation, moderate tricuspid regurgitation, mild pulmonary hypertension with RVSP of 39 Hiatal hernia Thoracic ascending aortic aneurysm 4.[address] scan from August 2019 Anemia of chronic disease Megaloblastic anemia Paroxysmal atrial fibrillation Type 2 diabetes mellitus Hemoglobin A1c was 6.6 in July 2019. Hypertension Osteoporosis Hyperlipidemia AV fistula Left upper extremity End stage renal disease on dialysis Dialysis days are Sunday, Sunday, and Sunday. She is on the transplant list at [facility]. Osteoarthritis of both knees Staphylococcal septicemia (~2013) Closed fracture of lateral portion of right tibial plateau (~2014) Surgical History Surgical History Amputated toe of left foot History of bilateral cataract extraction Amputation at midfoot 5th digit right footAnd the great toe on the left History of arthroplasty of right ankle Presence of Watchman left atrial appendage closure device History of arthroscopy (~12/07/12) wrist History of colonoscopy (~12/02/15) History of knee replacement (~2015) right Family History Family History Father Hypertension Heart disease Mother Diabetes mellitus Hypertension Tobacco dependence Lung cancer Sibling Heart disease Social History Social History Social History: The patient is and lives in [place]. She is originally from [place]. 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 She has 2 daughters who live in [place]. She has 1 son who lives in [facility] . She designates her daughters as her surrogate decision makers. She is a lifelong nonsmoker. No alcohol or drug abuse. Primary care physician: Dr. David Coppola Code status: Full code Smoking status: Never smoker Second hand tobacco smoke exposure: No Alcohol intake: never Substance use: never Substance use type: does not use Do You Feel Safe in your Home?: Yes Lack of Transportation: No Lack of Food: Never True Current Housing: I Have Housing Concerned About Future Housing: No Difficulty Paying Gas/Electric Bills: No Difficulty Paying for Meds: No Currently Unemployed: No Education: High School Diploma/GED Difficulty w/ Childcare or Family Care: No Gender identity (if verbalized by the patient): Female Spiritual care concerns: No Agree to blood products: Yes Exam Narrative: GENERAL: Elderly, well-nourished, and in no acute distress. HEAD: Normocephalic, atraumatic. EYES: EOMI. CHEST: Clear to auscultation. No respiratory distress. No wheezes rales or rhonchi HEART: Regular rate and rhythm. No murmur heard. Normal peripheral pulses. ABDOMEN: Soft, nontender, nondistended, normal active bowel sounds. EXTREMITIES: Normal range of motion. No edema. SKIN: Warm, dry, no rash. NEURO: No focal deficits. Alert and oriented x3. PSYCH: Normal mood and affect Course Vital Signs Vital signs: Vital Signs Temperature 98.2 F 02/15/25 19:06 Pulse Rate 66 02/15/25 19:06 Respiratory Rate 18 02/15/25 19:06 Blood Pressure 147/50 H 02/15/25 19:06 Pulse Oximetry 97 02/15/25 19:06 Oxygen Delivery Room Air 02/15/25 19:06 Temperature 98.2 F 02/15/25 19:06 Pulse Rate 75 02/15/25 23:15 Respiratory Rate 18 02/15/25 23:15 Blood Pressure 158/61 H 02/15/25 20:01 Pulse Oximetry 100 02/15/25 23:15 Oxygen Delivery Room Air 02/15/25 19:28 MDM - Abdominal Pain MDM Narrative Medical decision making narrative: Patient presents to the emergency department for constipation. Was just discharged from our hospital, reports she had not had a bowel movement in 5 days despite taking stool softeners and MiraLax. KUB is showing fecal impaction/constipation. No signs of obstruction. Patient was given enema with relief. Instructed on continued care of constipation. She was given warnings to return to the ER Differential Diagnosis Differential diagnosis: Likely constipation Imaging Data Radiologist's impression: ITS Impressions Abdomen X-Ray 02/15/25 20:50 IMPRESSION: Likely fecal impaction. No air-filled bowel dilation to suggest obstruction or ileus, noting there is a paucity of small bowel gas. Sclerotic bones possibly secondary to renal osteodystrophy. Critical Care Time Critical Care Time Critical Care Time: No Discharge Plan Discharge Clinical Impression: Constipation Qualifiers: Constipation type: unspecified constipation type Qualified Code(s): K59.00 - Constipation, unspecified Patient Disposition: Home Condition: Improved Instructions: Constipation (ED) Additional Instructions: Return to the ER if you experience fever, abdominal pain with nausea and vomiting, you are unable to keep down liquids or solids, blood in the stool, or any other symptoms that are concerning to you Remain well hydrated. Take Colace daily. Miralax as needed. Follow up with primary care doctor Patient Language: Marshallese Prescriptions: No Action atorvastatin 40 mg tablet 40 mg PO DAILY Renal Caps 1 mg capsule 1 cap PO DAILY dicyclomine 10 mg capsule See Rx Instructions .ROUTE .COMPLEX Qty: 60 5RF Dose Instruction: TAKE 1 CAPSULE BY MOUTH TWICE DAILY NEEDED FOR ABDOMINAL PAIN Rx Instructions: TAKE 1 CAPSULE BY MOUTH TWICE DAILY NEEDED FOR ABDOMINAL PAIN (DME) rollator See Rx Instructions .Route .MEDSUPPLY Qty: 1 0RF Rx Instructions: As directed Prolia 60 mg/mL syringe 60 mg subcut [id number] Qty: 1 1RF Patient Comments: Due this month (May). Gets from primary care Doctor. can have caregiver bring in clotrimazole [Antifungal (clotrimazole)] 1 % cream 1 applic topical Q12H liraglutide [Victoza 2-Agustín] 0.6 mg/0.1 mL (18 mg/3 mL) pen injector 1.2 mg subcut HS Rx Instructions: INJECT 1.8 MG (0.3 ML) SUB-Q AT BEDTIME. For diabetes diclofenac sodium [Arthritis Pain (diclofenac)] 1 % gel 2 g topical QID PRN (Reason: discomfort) Rx Instructions: apply to single elbow, wrist or hand; for hand includes palm/fingers/back of hand levofloxacin 750 mg tablet 750 mg PO .q48 4 Days Qty: 2 0RF metronidazole 500 mg tablet 500 mg PO Q8H 4 Days Qty: 12 0RF polyethylene glycol 3350 [Miralax] 17 gram/dose powder 17 g PO DAILY PRN (Reason: constipation) 7 Days Qty: 119 0RF quetiapine [Seroquel] 25 mg tablet 25 mg PO HS 7 Days Qty: 7 0RF acetaminophen [Acetaminophen Extra Strength] 500 mg Tablet See Rx Instructions PO Q4H PRN (Reason: Pain) Rx Instructions: 325 orally every 4 hours PRN; (DME) blood sugar diagnostic Strip See Rx Instructions .ROUTE .MEDSUPPLY Qty: 500 3RF Rx Instructions: As directed test 6 x day (DME) hortencia strickland See Rx Instructions .Route .MEDSUPPLY Qty: 1 0RF Rx Instructions: As directed (DME) Assited gait device See Rx Instructions .Route .MEDSUPPLY Qty: 1 0RF Rx Instructions: Fer Strickland Januvia 100 mg tablet 100 mg PO DAILY Qty: 90 1RF biotin 5 mg capsule 5 mg PO DAILY (DME) blood sugar diagnostic Strip See Rx Instructions .Route Qty: 500 2RF Rx Instructions: Use to check blood sugars 6 times a day tenofovir alafenamide 25 mg tablet 25 mg PO DAILY Qty: 90 2RF Rx Instructions: Take every day at suppertime with the meal tobramycin 0.3 % drops 1 drp EACH EYE Q4H Qty: 5 1RF trazodone 50 mg tablet 100 mg PO QHS Qty: 180 1RF pantoprazole 40 mg tablet,delayed release (DR/EC) 40 mg PO Q12HR Qty: 60 5RF (DME) pen needle, diabetic 32 gauge x 5/32 needle See Rx Instructions .ROUTE .COMPLEX Qty: 100 3RF Dose Instruction: USE DIRECTED Rx Instructions: USE DIRECTED insulin degludec [Tresiba FlexTouch U-100] 100 unit/mL (3 mL) insulin pen 10 unit subcut HS Qty: 15 3RF Follow-up/Referrals: David Coppola MD [Primary Care Provider] -
--- OUTSIDE RECORDS SUMMARY | 2025-02-15 20:38 | XMS_ITS ---
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, bilateral legs (HCC) Atherosclerosis of cherokee arteries of extremities with rest pain, left leg (HCC) US ARTERIAL DOPPLER LOWER EXTREMITY BILATERAL Schedule Routine, Read Routine (OP Routine) 12/23/2024 11:17 AM CDT Atherosclerosis of cherokee arteries of extremities with intermittent claudication, right leg Atherosclerosis of cherokee arteries of extremities with rest pain, bilateral [...] HEPATITIS C ANTIBODY Routine 08/19/2020 12:07 PM INDUSTRIAL E[employer]IPMENT WIRER ESRD (end stage renal disease) (HCC) HEMOGLOBIN A1C Routine 09/04/2019 12:14 AM INDUSTRIAL EQUIPMENT WIRER from Last 3 Months or Most Recently [...] GIB. Patients daughter reports recent admission to [facility] due to concern for GIB. Patient followed up with her outpatient GI. Planning for EGD at the end of November - continue PPI. Assessment & Plan (11/21/2024 3:03 PM CDT): History of peptic ulcer with GIB. Patients daughter reports recent admission to [facility] due to concern for GIB. Patient followed up with her outpatient GI. Planning for EGD at the end of November - closely monitor for bleeding due to starting asa and Plavix as above - continue PPI Assessment & Plan (08/28/2024 1:08 PM INDUSTRIAL EQUIPMENT WIRER): History of peptic ulcer with GIB Denies sx continue PPI Heart valve disease 04/06/2023 History of GI bleed 02/04/2023 Bradycardia 09/29/2022 Bleeding 09/29/2022 Idiopathic hypotension 09/13/2021 Complication of arteriovenous dialysis fistula 0 09/07/2020 Type 2 diabetes mellitus wit h diabetic peripheral angiopathy and gangrene, without long-term current use of insulin 08/21/2020 Assessment & Plan (08/28/2024 1:05 PM INDUSTRIAL EQUIPMENT WIRER): Home regimen Januvia, tresiba 10 and Victoza. Reviewed PCP records noted hypoglycemia last hospital admit with basal insulins continued Will continue januvia and hold tresiba and victoza SSI Family history of ischemic h eart disease and other diseases of the circulatory system 11/27/2019 Critical limb ischemia of right lower extremity 10/14/2019 Overview (10/14/2019): Added automatically from request for surgery [id number] Assessment & Plan (08/28/2024 12:59 PM INDUSTRIAL EQUIPMENT WIRER): S/p uncomplicated balloon angioplasty of the AT, [...] (10/14/2019): Added automatically from request for surgery [id number] Presence of Watchman left atrial appendage closu re device 08/29/2018 Atrial fibrillation, permanent 06/13/2018 Overview (06/13/2018): Added automatically from request for surgery [id number] Assessment & Plan (11/22/2024 1:43 PM CDT): Rate controlled and s/p Watchman due to prior GIB. - continue home coreg as below. Assessment & Plan (11/21/2024 3:39 PM CDT): Rate controlled and s/p Watchman due to prior GIB. - continue home coreg as below Assessment & Plan (08/28/2024 1:03 PM INDUSTRIAL EQUIPMENT WIRER): Follows with [facility] cardiology. Rate controlled and s/p Watchman due to prior severe GIB Recently stopped coreg due to bradycardia ASA and plavix to start per IR recs post revascularization Assessment & Plan (07/24/2018 9:29 AM INDUSTRIAL EQUIPMENT WIRER): Continue coreg. S/p Watchmann DAVIDA occluder implant for future deescalate anticoagulation. Continue apixiban for now as per EP. Post procedure CXR. 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 Resume as able. Assessment & Plan (11/21/2024 3:03 PM CDT): Continue home lisinopril and coreg Assessment & Plan (07/24/2018 9:27 AM INDUSTRIAL EQUIPMENT WIRER): Continue home meds and dialysis. Hyperlipidemia associated [...] today Assessment & Plan (08/29/2024 4:04 PM INDUSTRIAL EQUIPMENT WIRER): Routine M/W/F r brachial fistula (has required multiple dilations last at [facility] 07/2024 Feeling well post procedure denies dyspnea. Renal consulted for HD prior to discharge Assessment & Plan (07/24/2018 9:26 AM INDUSTRIAL EQUIPMENT WIRER): HD as per renal consult. Resume outpt [...] often do you attend chur ch or buddhist services? 1 to 4 times per year 09/04/2019 Do you belong to any clubs o r organizations such as denominational groups, unions, fraternal or athletic groups, or [...] on file Legal Sex Female 12:39 PM INDUSTRIAL EQUIPMENT WIRER Gender Identity Not on file Sexual Orientation [...] DATE: 12/23/2024 10:00 AM HISTORY: Atherosclerosis of [place] Arteries of Extremities with Rest Pain, Bilateral [...] 0.76 LT DIGIT 36 0.23 Procedure Note Ceazr Sanchez MD - 12/23/2024 EXAMINATION: BILATERAL LOWER EXTREMITY ARTERY DUPLEX WITH ABIS DATE: 12/23/2024 10:00 AM HISTORY: Atherosclerosis of [place] Arteries of Extremities with Rest Pain, Bilateral [...] DATE: 12/23/2024 10:00 AM HISTORY: Atherosclerosis of [place] Arteries of Extremities with Rest Pain, Bilateral [...] DATE: 12/23/2024 10:00 AM HISTORY: Atherosclerosis of [place] Arteries of Extremities with Rest Pain, Bilateral [...] POCT ORDERABLES - DEV ICE Final Result [facility] [place] [address] * (ABNORMAL) POCT glucose (11/22/2024 8:28 AM CDT) Glucose, POC 230(H) 70 - 199 mg/dL Blood 11/22/2024 8:28 AM CDT 11/22/2024 8:28 AM CDT Shahnaz Heredia MD LAB POCT ORDERABLES - DEV ICE Final Result [facility] [place] [address] * (ABNORMAL) eGFR (11/22/2024 7:56 AM CDT) [...] LAB BLOOD ORDERABLES Final R esult [facility]ER[facility] Department [place] [address] * Hepatitis B Surface Antigen Blood (11/22/2024 7:56 AM CDT) HepBsAg Nonreactive Nonreactive Blood 11/22/2024 7:56 AM CDT 11/22/2024 8:36 AM CDT Nina Hopson MD LAB MICROB IOLOGY - GENERAL ORDERABLES Edited Result - Final [facility] Department [place] [address] * (ABNORMAL) CBC without differential (11/22/2024 7:56 AM CDT) WBC 7.32 3.80 - 9.90 K/cumm Hgb 8.6(L) 11.9 - 15.5 g/dL [facility] Hct 28.8(L) 35.6 - 45.5 % [facility] Plt 111(L) 150 - 400 K/cumm [facility] MPV 12.6(H) 9.1 - 12.3 fL [facility] RBC 2.91(L) 3.90 - 5.20 M/cumm [facility] MCV 99.0(H) 81.3 - 96.4 fL [facility] MCH 29.6 27.1 - 33.3 pg [facility] MCHC 29.9(L) 32.3 - 35.7 g/dL [facility] RDW CV 17.2(H) 11.1 - 14.9 % [facility] RDW SD 60.7(H) 35.7 - 48.1 fL [facility] NRBC abs 0.00 0.00 - 0.01 K/cumm [facility] Blood 11/22/2024 7:56 AM CDT 11/22/2024 8:37 AM CDT us Tomy GUADARRAMA LAB BLOOD ORDERABLES Final R esult [facility] Department [place] [address] * (ABNORMAL) Basic metabolic panel (11/22/2024 7:56 AM CDT) Sodium 131(L) 135 - 145 mmol/L Potassium, pl 5.5(H) 3.3 - 4.9 mmol/L [facility] Chloride 92(L) 97 - 110 mmol/L [facility] CO2 29 22 - 32 mmol/L [facility] Anion gap 10 2 - 15 mmol/L [facility] BUN 58(H) 6 - 25 mg/dL [facility] Creatinine 6.13(H) 0.60 - 1.10 mg/dL [facility] Glucose 257(H) 70 - 199 mg/dL [facility] Comment: Interpretive Data Fasting glucose >/= [...] Calcium 8.8 8.5 - 10.3 mg/dL [facility] Blood 11/22/2024 7:56 AM CDT 11/22/2024 8:37 AM CDT us Tomy GUADARRAMA LAB BLOOD ORDERABLES Final R esult [facility] Department [place] [address] * (ABNORMAL) eGFR (11/21/2024 10:36 PM CDT) [...] Fermin NP LAB BLOOD ORDERABLES Final Result [facility] Department [place] [address] * (ABNORMAL) CBC without differential (11/21/2024 10:36 PM CDT) [facility] WBC 8.51 3.80 - 9.90 K/cumm Hgb 8.9(L) 11.9 - 15.5 g/dL [facility] Hct 29.8(L) 35.6 - 45.5 % [facility] Plt 112(L) 150 - 400 K/cumm [facility] MPV 12.7(H) 9.1 - 12.3 fL [facility] RBC 3.01(L) 3.90 - 5.20 M/cumm [facility] MCV 99.0(H) 81.3 - 96.4 fL [facility] MCH 29.6 27.1 - 33.3 pg [facility] MCHC 29.9(L) 32.3 - 35.7 g/dL [facility] RDW CV 17.2(H) 11.1 - 14.9 % [facility] RDW SD 60.3(H) 35.7 - 48.1 fL [facility] NRBC abs 0.02(H) 0.00 - 0.01 K/cumm [facility] Blood 11/21/2024 10:3 6 PM CDT 11/21/2024 10:49 PM CDT Christina Fermin NP LAB BLOOD ORDERABLES Final Result [facility] Department [place] [address] * (ABNORMAL) Phosphorus (11/21/2024 10:36 PM CDT) Phosphorus, pl 6.5(H) 2.3 - 4.5 mg/dL Blood 11/21/2024 10:3 6 PM CDT 11/21/2024 10:49 PM CDT us Robles Alicea MD LAB BLOOD ORDERABLES Gertrude l Result [facility] Department [place] [address] * (ABNORMAL) Basic metabolic panel (11/21/2024 10:36 PM CDT) Pathologist [facility] Sodium 135 135 - 145 mmol/L Potassium, pl 5.5(H) 3.3 - 4.9 mmol/L [facility] Chloride 93(L) 97 - 110 mmol/L [facility] CO2 29 22 - 32 mmol/L [facility] Anion gap 13 2 - 15 mmol/L [facility] BUN 57(H) 6 - 25 mg/dL [facility] Creatinine 5.81(H) 0.60 - 1.10 mg/dL [facility] Glucose 257(H) 70 - 199 mg/dL [facility] Comment: Interpretive Data Fasting glucose >/= [...] Calcium 9.6 8.5 - 10.3 mg/dL [facility] Blood 11/21/2024 10:3 6 PM CDT 11/21/2024 10:49 PM CDT us Christina Fermin NP LAB BLOOD ORDERABLES Final Result [facility] [place] [address] * POCT glucose (11/21/2024 8:23 PM CDT) Glucose, POC 119 70 - 199 mg/dL Blood 11/21/2024 8:23 PM CDT 11/21/2024 8:23 PM CDT Shahnaz Heredia MD LAB POCT ORDERABLES - DEV ICE Final Result Performing Organization Address [facility] [place] [address] * POCT glucose (11/21/2024 5:24 PM CDT) Glucose, POC 188 70 - 199 mg/dL Blood 11/21/2024 5:24 PM CDT 11/21/2024 5:24 PM CDT Shahnaz Heredia MD LAB POCT ORDERABLES - DEV ICE Final Result Performing Organization Address [facility] [place] [address] * IR Angiogram Lower Extremity Right (11/21/2024 [...] was obtained. Prior to beginning the procedure, [place] Protocol was performed to confirm the patient's [...] of the patent vessel was recorded. The 5-Ethiopian catheter was placed in the superficial femoral artery and the right lower extremity angiogram was performed in stations to the foot A 45 cm 6-Ethiopian sheath was advanced to the superficial femoral [...] was obtained. Prior to beginning the procedure, [place] Protocol was performed to confirm the patient's [...] of the patent vessel was recorded. The 5-Ethiopian catheter was placed in the superficial femoral artery and the right lower extremity angiogram was performed in stations to the foot A 45 cm 6-Ethiopian sheath was advanced to the superficial femoral [...] 318(H) 123 - 168 sec POC Performer [id number] [facility] POC Device Number [id number] [facility] Blood 11/21/2024 10:3 6 AM CDT 11/21/2024 10:36 AM CDT Result [facility] Shahnaz Heredia MD LAB POCT ORDERABLES - DEV ICE Final Result Performing Organization Address [facility] de Phone Number [facility] [place] [address] * (ABNORMAL) POCT Activated clotting time, low range (11/21/2024 9:54 AM CDT) ACT 331(H) 123 - 168 sec POC Performer [id number] [facility] POC Device Number [id number] [facility] Blood 11/21/2024 9:54 AM CDT 11/21/2024 9:54 AM CDT Result [facility] Shahnaz Heredia MD LAB POCT ORDERABLES - DEV ICE Final Result Performing Organization Address [facility] Co de Phone Number [facility] [place] [address] * (ABNORMAL) POCT Activated clotting time, low range (11/21/2024 9:20 AM CDT) ACT 360(H) 123 - 168 sec POC Performer [id number] [facility] POC Device Number [id number] [facility] Blood 11/21/2024 9:20 AM CDT 11/21/2024 9:20 AM CDT us Shahnaz Heredia MD LAB POCT ORDERABLES - DEV ICE Final Result Performing Organization Address [facility] Co de Phone Number [facility] Department [place] [address] * (ABNORMAL) eGFR (11/21/2024 6:31 AM CDT) [...] ORDERABLES Fi nal Result Performing Organization Address City/[facility]/ZIP Co de Phone Number [facility] Department [place] [address] * (ABNORMAL) Differential, auto (11/21/2024 6:31 AM CDT) Neutrophil abs 5.81 1.50 - 6.50 K/cumm Imm gran abs 0.03 0.00 - 0.10 K/cumm [facility] Lymphocyte abs 1.28 0.80 - 3.30 K/cumm [facility] Monocyte abs 0.89(H) 0.20 - 0.80 K/cumm [facility] Eosinophil abs 0.05 0.00 - 0.50 K/cumm [facility] Basophil abs 0.03 0.00 - 0.10 K/cumm [facility] Neutrophil pct 71.8 % [facility] Comment: Interpretive Data Percent cell count reference ranges are not reported, since discordance with absolute values may lead to misinterpretation of CBC data. Current Interpretive Data was last revised on 2017. Imm gran pct 0.4 % [facility] Comment: Interpretive Data Percent cell count reference ranges are not reported, since discordance with absolute values may lead to misinterpretation of CBC data. Current Interpretive Data was last revised on 2017. Lymphocyte pct 15.8 % [facility] Comment: Interpretive Data Percent cell count reference ranges are not reported, since discordance with absolute values may lead to misinterpretation of CBC data. Current Interpretive Data was last revised on 2017. Monocyte pct 11.0 % [facility] Comment: Interpretive Data Percent cell count reference ranges are not reported, since discordance with absolute values may lead to misinterpretation of CBC data. Current Interpretive Data was last revised on 2017. Eosinophil pct 0.6 % [facility] Comment: Interpretive Data Percent cell count reference ranges are not reported, since discordance with absolute values may lead to misinterpretation of CBC data. Current Interpretive Data was last revised on 2017. Basophil pct 0.4 % [facility] Comment: Interpretive Data Percent cell count reference ranges are not reported, since discordance with absolute values may lead to misinterpretation of CBC data. Current Interpretive Data was last revised on 2017. Blood 11/21/2024 6:31 AM CDT 11/21/2024 6:47 AM CDT us Anthony Gorman MD LAB BLOOD ORDERABLES Fi nal Result [facility] Department [place] [address] * (ABNORMAL) CBC with auto differential (11/21/2024 6:31 AM CDT) Pathologist [facility] WBC 8.09 3.80 - 9.90 K/cumm Hgb 9.9(L) 11.9 - 15.5 g/dL [facility] Hct 32.3(L) 35.6 - 45.5 % [facility] Plt 134(L) 150 - 400 K/cumm [facility] MPV 12.6(H) 9.1 - 12.3 fL [facility] RBC 3.31(L) 3.90 - 5.20 M/cumm [facility] MCV 97.6(H) 81.3 - 96.4 fL [facility] MCH 29.9 27.1 - 33.3 pg [facility] MCHC 30.7(L) 32.3 - 35.7 g/dL [facility] RDW CV 17.2(H) 11.1 - 14.9 % [facility] RDW SD 60.4(H) 35.7 - 48.1 fL [facility] NRBC abs 0.02(H) 0.00 - 0.01 K/cumm [facility] Blood 11/21/2024 6:31 AM CDT 11/21/2024 6:47 AM CDT us Anthony Gorman MD LAB BLOOD ORDERABLES Fi nal Result [facility] Department [place] [address] * (ABNORMAL) Lipid panel (11/21/2024 6:31 AM CDT) [facility] Cholesterol 99 30 - 199 mg/dL Comment: [...] on 2018. Triglycerides 90 <=149 mg/dL [facility] Comment: Interpretive Data Ages < or [...] on 2018. HDL 35(L) >=40 mg/dL [facility] Comment: Interpretive Data Ages < or [...] 2018. LDL, calculated 46 <=129 mg/dL [facility] Comment: Interpretive Data Ages < or [...] on 2024. Non-HDL Cholesterol 64 mg/dL [facility] Comment: Interpretive Data Ages < or [...] revised on 2018. Chol/HDL ratio 3 [facility] Blood 11/21/2024 6:31 AM CDT 11/21/2024 6:47 AM CDT Anthony Gorman MD LAB BLOOD ORDERABLES Fi nal Result [facility] Department [place] [address] * (ABNORMAL) Basic metabolic panel (11/21/2024 6:31 AM CDT) Sodium 135 135 - 145 mmol/L Potassium, pl 4.9 3.3 - 4.9 mmol/L [facility] Chloride 92(L) 97 - 110 mmol/L [facility] CO2 32 22 - 32 mmol/L [facility] Anion gap 11 2 - 15 mmol/L [facility] BUN 50(H) 6 - 25 mg/dL [facility] Creatinine 5.26(H) 0.60 - 1.10 mg/dL [facility] Glucose 231(H) 70 - 199 mg/dL [facility] Comment: Interpretive Data Fasting glucose >/= [...] Calcium 10.3 8.5 - 10.3 mg/dL [facility] Blood 11/21/2024 6:31 AM CDT 11/21/2024 6:47 AM CDT Anthony Gorman MD LAB BLOOD ORDERABLES Fi nal Result Performing Organization Address [facility] Co de Phone Number [facility] [place] [address] * Hepatitis C antibody (08/19/2020 12:07 PM INDUSTRIAL EQUIPMENT WIRER) Pathologist [facility] Hep C Ab Nonreactive Nonreactive [facility] Comment:Antibodies to HCV no t detected. Does NOT exclude the possibility of recent exposure to HCV. Blood specimen (specimen) 08/19/2020 12:07 PM INDUSTRIAL EQUIPMENT WIRER 08/19/2020 12:15 PM INDUSTRIAL EQUIPMENT WIRER Humza Trevizo MD LAB MICROB IOLOGY - GENERAL ORDERABLES Edited Result - Final Performing Organization Address [facility] Co de Phone Number [facility] [place] [address] * (ABNORMAL) Hemoglobin A1c (09/04/2019 12:14 AM INDUSTRIAL EQUIPMENT WIRER) Hgb A1C 8.2(H) 4.0 - 5.6 % [facility] Estimated Average Glucose 189 mg/dL [facility] Comment: The ADA recommends reporting an estimated Average Glucose (eAG) with all Hemoglobin A1c results using the equation derived from a study of 507 normal and diabetic adults. Minority populations were underrepresented and children were not included. (Diabetes Care 31:2352-4471, 2008). The eAG is not equivalent to a fasting glucose. Blood specimen (specimen) 09/04/2019 12:14 AM INDUSTRIAL EQUIPMENT WIRER 09/04/2019 12:58 AM INDUSTRIAL EQUIPMENT WIRER us Brandin Pena MD LAB BLOOD ORDERABLES Final Result [facility] [place] [address] from Last 3 Months or Most Recently Relevant to Health Maintenance
--- OUTSIDE RECORDS SUMMARY | 2025-02-15 20:38 | XMS_ITS | Encounter Summary ---
Author Organization [facility] Address [address] [place] [address] Care Team Providers Care Criminal Justice Professor Name Role Phone David Coppola MD Primary Care Provider + [phone] David Coppola MD Unavailable [phone] David Coppola MD Unavailable [phone] Virginie Corea RN Unavailable [phone] Encounter Details Date Type Department Care Team (Late st Contact Info) Description 04/10/2018 Nutrition [facility] [address] [place] [phone] [address]/LAURA Social History Tobacco Use Types Packs/Day Years Used Date Smoking Tobacco: Never Smokeless Tobacco: Never Alcohol Use Standard Drinks/Week Comments No 0 (1 standard drink = 0.6 oz pur e alcohol) Comments No Sex and Gender Information Value Date Recorded Sex Assigned at Not on file Legal Sex Female 5:40 PM BUNCH TRIMMER MOLD Gender Identity Not on file Sexual Orientation [...] AM CDT Appointment [facility] [address], [address] [place], [place] [id number] [place] [address] [address] [place] [address] [place] [address] [address] [place] [address] Cristo Fontenot MD [address] [address] 03/17/2025 1:00 PM CDT Procedure visit [facility] [address] [place] [phone] 03/17/2025 1:30 PM CDT Office Visit [facility] [address] [place] [address] [phone] Avis Dumont, MACHINE SETTER AUTOMATIC-BRAKE MACHINE OPERATOR [address] [place] [address] [place] [address] documented as of this encounter Visit Diagnoses Not on filedocumented in this encounter Care Teams Criminal Justice Professor Relationship Specialty Start Date End Date David Coppola MD [address] [place] [phone] PCP - General 08/15/16 David Coppola MD [address] [place] [phone] Family Medicine 02/08/15 David Coppola MD [address] [place] [address] [phone] Family Medicine 08/15/16 Virginie Corea RN Volleyball Assembler 02/23/15 documented as of this encounter
--- OUTSIDE RECORDS SUMMARY | 2025-02-15 20:38 | XMS_ITS | Clinical Summary ---
Author Organization [facility] Address [address] [place] [address] Phone Care Team Providers Care Supervisor Roving Department Name Role Phone David Coppola MD Primary Care Provider [phone] Allergies Active Allergy Reactions Criticality Noted Date [...] Comments Blood Pressure 71/53 09/01/2020 2:54 PM EDITOR DICTIONARY 148 /36 Pulse 72 09/01/2020 2:54 PM EDITOR DICTIONARY Temperature 36.4 C (97.6 F) 09/01/2020 2:54 PM EDITOR DICTIONARY Respiratory Rate - - Oxygen Saturation 97% 09/01/2020 2:54 PM EDITOR DICTIONARY Inhaled Oxygen Concentration - - Weight 56.6 kg (124 lb 11.2 oz) 09/01/2020 2:54 PM EDITOR DICTIONARY Height 144.8 cm (4' 9) 09/01/2020 2:54 PM EDITOR DICTIONARY Body Mass Index 26.98 09/01/2020 2:54 PM EDITOR DICTIONARY Plan of Treatment Health Maintenance Due Date [...] 1 , 04/09/2014, 04/09/2014 Insurance MEDICAID [place] [facility] [id number] Care Teams Supervisor Roving Department Relationship Specialty Start Date End Date David Coppola MD PCP - General Family Practice 05/14/20
--- OUTSIDE RECORDS SUMMARY | 2025-02-15 20:38 | XMS_ITS | Encounter Summary ---
Author Organization [facility] Address [address] [place] [address] Phone Care Team Providers Care Base Brander Name Role Phone David Coppola MD Primary Care Provider [phone] David Coppola MD Primary Care Provider [phone] David Coppola MD Primary Care Provider [phone] David Coppola MD Primary Care Provider [phone] Unknown, Notinfile Primary Care Provider Unavail able David Coppola MD Primary Care Provider [phone] Jacob Suarez MD Unavailable [phone] Marnie Lara RN Unavailable [phone] Ros Seay MD Unavailable [phone] Johana Edmond RN Unavailable [phone] Abdifatah Villa MD Unavailable Issa Clements MD Unavailable [phone] Encounter Details Date Type Department Care Team (Latest Contact Info) Description 12/16/1980 Orders Only [facility] Scanning, Provider Social History Tobacco Use Types Packs/Day Years Used Date Smoking Tobacco: Never Assessed Comments Unknown Sex and Gender Information Value Date Recorded Sex Assigned at Not on file Legal Sex Female 12:39 PM COMMUNITY INTEGRATION SPECIALIST Gender Identity Not on file Sexual [...] Influenza, adult 09/04/2019 09/04/2019 09/11/2019 3:05 AM COMMUNITY INTEGRATION SPECIALIST Abscess/Wound/Cellulitis 10/16/2019 10/16/2019 3:05 AM CDT documented as of this encounter Care Teams Base Brander Relationship Specialty Start Date End Date David [...] Nephrology 12/20/18 Marnie Lara, RN Registered Nurse Food Service Clerk 12/20/1809/03 Ros Seay MD Soaking Pits Supervisor Cardiology 03/05/19 Johana Edmond, RN [address] [facility] [address] [place] [address] Food Service Clerk 08/21/19 Abdifatah Villa MD [address] [place] [address] Consulting Physician Cardiology 09/01/20 Issa Clements MD [address] [facility] [address] [place] [address] Referring Physician General Surgery 09/01/20 documented as of this encounter
--- OUTSIDE RECORDS SUMMARY | 2025-02-15 20:38 | XMS_ITS | Encounter Summary ---
Author Organization [facility] Address [address] [place] [address] Care Team Providers Care Fun House Operator Name Role Phone David Coppola MD Primary Care Provider + [phone] David Coppola MD Primary Care Provider + [phone] David Coppola MD Unavailable [phone] David Coppola MD Unavailable [phone] Virginie Corea RN Unavailable [phone] Encounter Details Date Type Department Care Team (Late Contact Info) Description 02/08/2015 [facility] Outpatient Visit EXTERNAL NON-[facility] DEPT David Buitrago MD [address] [place] [address] [address] [place] [phone] Social History Tobacco Use Types Packs/Day Years Used Date Smoking Tobacco: Never Alcohol Use Standard Drinks/Week Comments No 0 (1 standard drink = 0.6 oz pur e alcohol) Comments Unknown Sex and Gender Information Value Date Recorded Sex Assigned at Not on file 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 [address] [place] [address] Cristo Fontenot MD [address] [place] [address] 03/17/2025 1:00 PM CDT Procedure visit [facility] - [facility] [address] [place] [address], [place] [phone] 03/17/2025 1:30 PM CDT Office Visit [facility] - [facility] [address] [place] [phone] Avis Dumont, NETWORK OPERATIONS CENTER TECHNICIAN-COLLAR BASTER [address] [place] [address] [place] [phone] documented as of this encounter Visit Diagnoses Not on filedocumented in this encounter Care Teams Fun House Operator Relationship Specialty Start Date End Date David Coppola MD [address] [place] [phone] PCP - General Family Medicine 02/08/15 08/14/16 David Coppola MD [address] [place] [phone] PCP - General 08/15/16 David Coppola MD [address] [place] [phone] Family Medicine 02/08/15 David Coppola MD [address] [place] [phone] Family Medicine 08/15/16 Virginie Corea, ABENA Sulfate Drier Machine Operator 02/23/15 documented as of this encounter
--- OUTSIDE RECORDS SUMMARY | 2025-02-15 20:38 | XMS_ITS | Encounter Summary ---
Author Organization [facility] Address [address] [place] [address] Phone Care Team Providers Care Burner Tender Name Role Phone David Coppola MD Primary Care Provider [phone] Jacob Suarez MD Unavailable Marnie Lara RN Unavailable Ros Seay MD Unavailable [phone] Johana Edmond RN Unavailable Abdifatah Villa MD Unavailable Issa Clements MD Unavailable [phone] Encounter Details Date Type Department Care Team (Late st Contact Info) Description 05/13/2018 Telephone [facility] Cardiology [address] [facility] 8[address] [place] [address] [place] [address] Cameron Haro MD [address] [place] [address] Social History Tobacco Use Types Packs/Day Years Used Date Smoking Tobacco: Never Smokeless Tobacco: Never Alcohol Use Standard Drinks/Week Comments No 0 (1 standard drink = 0.6 oz pur e alcohol) Comments No Sex and Gender Information Value Date Recorded Sex Assigned at Not on file 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 Gender Identity Not on file Sexual [...] Influenza, adult 09/04/2019 09/04/2019 09/11/2019 3:05 AM LAB CLERK Abscess/Wound/Cellulitis 10/16/2019 10/16/2019 3:05 AM CDT documented as of this encounter Care Teams Burner Tender Relationship Specialty Start Date End Date David Coppola MD PCP - General Family Medicine 10/29/17 Jacob Suarez MD Referring Physician Nephrology 12/20/18 Marnie Lara, RN Registered Nurse Joint Sealer 12/20/1809/03 Ros Seay MD Agricultural Equipment Test Engineer Cardiology 03/05/19 Johana Edmond, RN [address] [facility] [address] [place] [address] Joint Sealer 08/21/19 Abdifatah Villa MD [address] [place] [address] Consulting Physician Cardiology 09/01/20 Issa Clements MD [address] [facility] [address] [place] [address] Referring Physician General Surgery 09/01/20 documented as of this encounter
--- OUTSIDE RECORDS SUMMARY | 2025-02-15 20:38 | XMS_ITS | Clinical Summary ---
Author Organization [facility] [address] Address [address] [place] [address] Care Team Providers Care Carton Maker Name Role Phone David Coppola MD Primary Care Provider [phone] Jacob Suarez MD Unavailable [phone] Ros Seay MD Unavailable [phone] Abdifatah Villa MD Unavailable Issa Clements MD Unavailable [phone] Allergies Active Allergy Reactions Criticality Noted [...] GIB. Patients daughter reports recent admission to [facility] due to concern for GIB. Patient followed up with her outpatient GI. Planning for EGD at the end of November - continue PPI. Assessment & Plan (11/21/2024 3:03 PM CDT): History of peptic ulcer with GIB. Patients daughter reports recent admission to [facility] due to concern for GIB. Patient followed up with her outpatient GI. 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 Reviewed PCP records noted hypoglycemia last hospital admit with basal insulins continued Will continue januvia and hold tresiba and victoza SSI Family history of ischemic h eart disease and other diseases of the circulatory system 11/27/2019 Critical limb ischemia of right lower extremity 10/14/2019 Overview (10/14/2019): Added automatically from request for surgery [id number] Assessment & Plan (08/28/2024 12:59 PM CANINE DEPUTY): S/p uncomplicated balloon angioplasty of the AT, [...] (10/14/2019): Added automatically from request for surgery [id number] Presence of Watchman left atrial appendage closu re device 08/29/2018 Atrial fibrillation, permanent 06/13/2018 Overview (06/13/2018): Added automatically from request for surgery [id number] Assessment & Plan (11/22/2024 1:43 PM CDT): Rate controlled and s/p Watchman due to prior GIB. - continue home coreg as below. Assessment & Plan (11/21/2024 3:39 PM CDT): Rate controlled and s/p Watchman due to prior GIB. - continue home coreg as below Assessment & Plan (08/28/2024 1:03 PM CANINE DEPUTY): Follows with [facility] [place]. Rate controlled and s/p Watchman due to prior severe GIB Recently stopped coreg due to bradycardia ASA and plavix to start per IR recs post revascularization Assessment & Plan (07/24/2018 9:29 AM CANINE DEPUTY): Continue coreg. S/p Watchmann DAVIDA occluder implant for future deescalate anticoagulation. Continue apixiban for now as per EP. Post procedure CXR. 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 PAD (peripheral artery disease) 03/15/2018 Overview (03/15/2018): Added automatically from request for surgery [id number] Assessment & Plan (11/22/2024 1:43 PM CDT): [...] (03/15/2018): Added automatically from request for surgery [id number] Ischemia of foot 03/15/2018 Overview (03/15/2018): Added automatically from request for surgery [id number] Noncompliance 02/24/2018 Essential hypertension 11/10/2017 Assessment & Plan (11/22/2024 1:43 PM CDT): On lisinopril and coreg at home, holding today for lower BP. Resume as able. Assessment & Plan (11/21/2024 3:03 PM CDT): Continue home lisinopril and coreg Assessment & Plan (07/24/2018 9:27 AM CANINE DEPUTY): Continue home meds and dialysis. Hyperlipidemia associated [...] today Assessment & Plan (08/29/2024 4:04 PM CANINE DEPUTY): Routine M/W/F r brachial fistula (has required multiple dilations last at [facility] 07/2024 Feeling well post procedure denies dyspnea. Renal consulted for HD prior to discharge Assessment & Plan (07/24/2018 9:26 AM CANINE DEPUTY): HD as per renal consult. Resume outpt [...] Resolved Date Coronary artery disease invo lving [place] coronary artery of [place] heart without angina pectoris 03/07/2021 03/07/2021 Preoperative cardiovascular examination 03/07/2021 09/29/2022 Hypoxia 11/27/2019 04/03/2023 Toe ulcer, left, with unspecified severity 09/16/2018 03/07/2021 Overview (09/16/2018): Added automatically from request for surgery [id number] Cough 11/10/2017 03/07/2021 Lumbago 06/04/2017 03/07/2021 Pain of lower extremity 06/04/2017 09/2 12/2022 Chronic anticoagulation 08/22/2016 0610/2018 Overview (10/12/2016): Chronic anticoagulation Stage 4 chronic kidney disease 04/21/2014 04/03/2023 Pain in joint 03/04/2014 04/03/2023 Paroxysmal atrial fibrillation 05/06/2024 ESRD (end stage renal disease) ([facility] 03/07/2021 Pre-transplant evaluation fo r kidney transplant 04/03/2023 Encounters Date Type Department Care Team Description 02/13/2025 Telephone [facility] Radiology [address] [place] [address] Alena Fontenot, RN 02/12/2025 4:00 PM CDT Telemedicine [facility] Radiology, Interventional Radiology [address] [place] [id number] Anthony Gorman MD Type 2 diabetes mellitus with diabetic peripheral angiopathy and gangrene, without long-term current use of insulin (HCC) (Primary Dx); Atrial fibrillation, permanent (HCC); Hyperlipidemia associated with type 2 diabetes mellitus (HCC); Critical limb ischemia of right lower extremity (HCC); Noncompliance; PAD (peripheral artery disease) 02/12/2025 Telephone [facility] Radiology [address] [place] [address] Alena Fontenot, RN 01/13/2025 1:30 PM CDT Office Visit [facility] Cardiology at [address] [place] [address] David Rodriguez MD Atrial fibrillation, permanent (HCC) (Primary Dx) 01/06/2025 Orders Only [facility] Radiology [address] [place] [address] Alena Fontenot, ABENA PAD (peripheral artery disease) (Primary Dx) 01/05/2025 Telephone [facility] Radiology [address] [place] [address] Alena Fontenot RN 12/23/2024 9:02 AM CDT - 12/23/2024 11:59 PM CDT Hospital Encounter [facility]ascular [facility] [address] [place] [address] Atherosclerosis of [place] arteries of extremities with intermittent claudication, right leg; Atherosclerosis of [place] arteries of extremities with rest pain, bilateral legs (HCC) Discharge Disposition: Discharge to home or self care 12/23/2024 9:02 AM CDT - 12/23/2024 11:59 PM CDT Hospital Encounter [facility] [address] [place] [address] Atherosclerosis of [place] arteries of extremities with rest pain, bilateral legs (HCC); Atherosclerosis of [place] arteries of extremities with rest pain, left leg (HCC) Discharge Disposition: Discharge to home or self care 11/28/2024 Telephone [facility] Radiology [address] [place] [address] Alena Fontenot, ABENA 11/27/2024 Orders Only [facility] Radiology [address] [place] [address] Alena Fontenot, RN Atherosclerosis of [place] arteries of extremities with intermittent claudication, right leg (Primary Dx); Atherosclerosis of [place] arteries of extremities with rest pain, bilateral legs (HCC); Atherosclerosis of [place] arteries of extremities with rest pain, left leg (HCC) 11/27/2024 Telephone [facility] Radiology [address] [place] [address] Alena Fontenot RN 11/21/2024 12:00 PM CDT - 11/22/2024 4:55 PM CDT Hospital Encounter [address] [address] Shahnaz Heredia MD Guevara, Carlos Javier, MD Pain and swelling of right lower extremity (Primary Dx); Non-healing wound of right lower extremity; Pain and swelling of lower extremity, right; PAD (peripheral artery disease) Discharge Disposition: Discharge to home or self care 11/21/2024 6:00 AM CDT Office Visit [facility] [address] [facility] 1st [place] [address] PAD (peripheral artery disease) 11/21/2024 Telephone Radiology [address] [place] [address] Hollie Martinez PA 11/19/2024 Telephone [facility] Scheduling [address] [place] [address] Cynthia Blankenship MD Scheduling Appointments 11/19/2024 Telephone [facility] Radiology [address] [place] [address] Yaritza Golden RN 11/18/2024 Telephone [facility] Radiology [address] [place] [address] Tomy Reynolds RN 11/17/2024 Orders Only [facility] Radiology [address] [place] [address] Alena Fontenot, ABENA PAD (peripheral artery disease) (Primary Dx) 11/17/2024 Telephone [facility] Radiology [address] [place] [address] Alena Fontenot, RN from Last 3 Months [...] Hx Relation Name Status Comments Brother of NE age 48 Father of NE age 47 Mother Social History Tobacco Use [...] How often do you attend chur or hinduism services? 1 to 4 times per year 09/04/2019 Do you belong to any clubs o r organizations such as yazidism groups, unions, fraternal or athletic groups, or [...] on file Legal Sex Female 12:39 PM CANINE DEPUTY Gender Identity Not on file Sexual Orientation [...] 09/04/2019, 05/08/2019 Medical Devices Implanted Type Area Textiles Printer Device Identifier Shelf Expiration Date Model / Serial / Lot Device Clsr 27mm Davida Watchman - [id number] - [id number] Implanted:Qty : 1 on 07/23/2018 by Mike Mccloud MD PhD at [facility] Other - see comments Left: Heart [employer] Breanna 12/13/2020 27MM-DAVIDA CLOSURE DEVICE / [id number] / [id number] Description:Left atrial appe ndage closure device Watchman Daig Breanna/[employer] [id number] Angio-Seal Vip Bondek-Plus 6fr .035in 70cm Hemostatic Latex Free - [id number] Implanted:Qty : 1 on 03/20/2018 by Abdifatah Villa MD at [facility] Daig Breanna[employer] 12/06/2018 [id number] / / [id number] Device Davida Watchman Procedure - [id number] Implanted:Qty : 1 on 07/23/2018 by Mike Mccloud MD PhD at [facility] [employer] WMPERPROCDEVICE 1 - 3 PC / / Description:1 Device Daig Breanna[employer] [id number] Angio-Seal Vip Bondek-Plus 6fr .035in 70cm Hemostatic Latex Free - [id number] Implanted:Qty : 1 on 09/26/2018 [facility] 06/07/2019 [id number] / / [id number] Daig Breanna [id number] Device Closure Angio-Seal Vip Bondek-Plus Polyglyd L70 Cm Od6 Fr Odsec.035 In Vascular - [id number] Implanted:Qty : 1 on 10/16/2019 by Abdifatah Villa MD at [facility]/[employer] [id number] / / [employer] Device 6fr Closure Celt Acd Vascular Sterile Latex Free Disposable Flavio Premier Healtht-06 - [id number] Implanted:Qty : 1 on 08/28/2024 at [facility] [employer] 01/01/2027 KCLT-06 / / [id number] Angio-Seal Vip 6fr Closere Device [id number] - [id number] Implanted:Qty : 1 on 11/21/2024 at [facility] [employer] 03/26/2025 [id number] / / [id number] Procedures Procedure Name Priority Date/Time Associated Diagnosis Comments VL US ARTERIAL DUPLEX LOWER EXTREMITY BILATERAL Schedule Routine, Read Routine (OP Routine) 12/23/2024 11:51 AM CDT Atherosclerosis of [place] arteries of extremities with rest pain, bilateral legs (HCC) Atherosclerosis of [place] arteries of extremities with rest pain, left leg (HCC) US ARTERIAL DOPPLER LOWER EXTREMITY BILATERAL Schedule Routine, Read Routine (OP Routine) 12/23/2024 11:17 AM CDT Atherosclerosis of [place] arteries of extremities with intermittent claudication, right leg Atherosclerosis of [place] arteries of extremities with rest pain, bilateral [...] HEPATITIS C ANTIBODY Routine 08/19/2020 12:07 PM CANINE DEPUTY ESRD (end stage renal disease) (HCC) HEMOGLOBIN A1C Routine 09/04/2019 12:14 AM CANINE DEPUTY from Last 3 Months or Most Recently [...] DATE: 12/23/2024 10:00 AM HISTORY: Atherosclerosis of [place] Arteries of Extremities with Rest Pain, Bilateral [...] DATE: 12/23/2024 10:00 AM HISTORY: Atherosclerosis of [place] Arteries of Extremities with Rest Pain, Bilateral [...] 0.23. Electronically signed by: Cezar Antonio MD [facility] Gorman MD IM US PROCEDURES Final Result [...] DATE: 12/23/2024 10:00 AM HISTORY: Atherosclerosis of [place] Arteries of Extremities with Rest Pain, Bilateral [...] DATE: 12/23/2024 10:00 AM HISTORY: Atherosclerosis of [place] Arteries of Extremities with Rest Pain, Bilateral [...] ORDERABLES - DEV ICE Final Result [facility] [place] [address] * (ABNORMAL) POCT glucose (11/22/2024 8:28 AM CDT) Glucose, POC 230(H) 70 - 199 mg/dL Blood 11/22/2024 8:28 AM CDT 11/22/2024 8:28 AM CDT Shahnaz Heredia MD LAB POCT ORDERABLES - DEV ICE Final Result Performing Organization Address [facility] Co de Phone Number [facility] [place] [address] * (ABNORMAL) eGFR (11/22/2024 7:56 AM CDT) [...] ORDERABLES Final R esult Performing Organization Address City/[facility]/ZIP Co de Phone Number [facility] Department [place] [address] * Hepatitis B Surface Antigen Blood (11/22/2024 7:56 AM CDT) HepBsAg Nonreactive Nonreactive Blood 11/22/2024 7:56 AM CDT 11/22/2024 8:36 AM CDT us Nina Hopson MD LAB MICROB IOLOGY - GENERAL ORDERABLES Edited Result - Final [facility] Department [place] [address] * (ABNORMAL) CBC without differential (11/22/2024 7:56 AM CDT) Pathologist [facility] WBC 7.32 3.80 - 9.90 K/cumm Hgb [...] esult [facility] Department [place] [address] * (ABNORMAL) Basic metabolic panel (11/22/2024 7:56 AM CDT) Pathologist [facility] Sodium 131(L) 135 - 145 mmol/L Potassium, [...] Calcium 8.8 8.5 - 10.3 mg/dL [facility] Blood 11/22/2024 7:56 AM CDT 11/22/2024 8:37 AM CDT us Tomy GUADARRAMA LAB BLOOD ORDERABLES Final R esult [facility] Department [place] [address] * (ABNORMAL) eGFR (11/21/2024 10:36 PM CDT) [...] NP LAB BLOOD ORDERABLES Final Result [facility] Department [place] [address] * (ABNORMAL) CBC without differential (11/21/2024 10:36 [...] Fermin NP LAB BLOOD ORDERABLES Final Result [facility] Department [place] [address] * (ABNORMAL) Phosphorus (11/21/2024 10:36 PM CDT) Pathologist [facility] Phosphorus, pl 6.5(H) 2.3 - 4.5 mg/dL Blood 11/21/2024 10:3 6 PM CDT 11/21/2024 10:49 PM CDT Robles Alicea MD LAB BLOOD ORDERABLES Gertrude l Result Performing Organization Address [facility] Co de Phone Number [facility] Department [place] [address] * (ABNORMAL) Basic metabolic panel (11/21/2024 10:36 PM CDT) Pathologist [facility] Sodium 135 135 - 145 mmol/L Potassium, [...] Fermin NP LAB BLOOD ORDERABLES Final Result [facility] [place] [address] * POCT glucose (11/21/2024 8:23 PM CDT) Glucose, POC 119 70 - 199 mg/dL Blood 11/21/2024 8:23 PM CDT 11/21/2024 8:23 PM CDT Shahnaz Heredia MD LAB POCT ORDERABLES - DEV ICE Final Result Performing Organization Address City/[facility]/ZIP Co de Phone Number [facility] [place] [address] * POCT glucose (11/21/2024 5:24 PM CDT) Glucose, POC 188 70 - 199 mg/dL Blood 11/21/2024 5:24 PM CDT 11/21/2024 5:24 PM CDT Shahnaz Heredia MD LAB POCT ORDERABLES - DEV ICE Final Result Performing Organization Address City/[facility]/ZIP Co de Phone Number [facility] [place] [address] * IR Angiogram Lower Extremity Right (11/21/2024 [...] was obtained. Prior to beginning the procedure, [place] Protocol was performed to confirm the patient's [...] of the patent vessel was recorded. The 5-Turkish catheter was placed in the superficial femoral artery and the right lower extremity angiogram was performed in stations to the foot A 45 cm 6-Turkish sheath was advanced to the superficial femoral [...] was obtained. Prior to beginning the procedure, [place] Protocol was performed to confirm the patient's [...] of the patent vessel was recorded. The 5-Turkish catheter was placed in the superficial femoral artery and the right lower extremity angiogram was performed in stations to the foot A 45 cm 6-Turkish sheath was advanced to the superficial femoral [...] 318(H) 123 - 168 sec POC Performer [id number] [facility] POC Device Number [id number] [facility] Blood 11/21/2024 10:3 6 AM CDT 11/21/2024 10:36 AM CDT Shahnaz Heredia MD LAB POCT ORDERABLES - DEV ICE Final Result Performing Organization Address City/[facility]/ZIP Co de Phone Number [facility] [place] [address] * (ABNORMAL) POCT Activated clotting time, low range (11/21/2024 9:54 AM CDT) ACT 331(H) 123 - 168 sec POC Performer [id number] [facility] POC Device Number [id number] [facility] Blood 11/21/2024 9:54 AM CDT 11/21/2024 9:54 AM CDT Shahnaz Heredia MD LAB POCT ORDERABLES - DEV ICE Final Result [facility] [place] [address] * (ABNORMAL) POCT Activated clotting time, low range (11/21/2024 9:20 AM CDT) ACT 360(H) 123 - 168 sec POC Performer [id number] [facility] POC Device Number [id number] [facility] Blood 11/21/2024 9:20 AM CDT 11/21/2024 9:20 AM CDT us Shahnaz Heredia MD LAB POCT ORDERABLES - DEV ICE Final Result Performing Organization Address City/[facility]/ZIP Co de Phone Number [facility] Department [place] [address] * (ABNORMAL) eGFR (11/21/2024 6:31 AM CDT) [...] LAB BLOOD ORDERABLES Fi nal Result GUILLERMINA [facility] Department [place] [address] * (ABNORMAL) Differential, auto (11/21/2024 6:31 AM CDT) Neutrophil abs 5.81 1.50 - 6.50 K/cumm Imm gran abs 0.03 0.00 - 0.10 K/cumm [facility] Lymphocyte abs 1.28 0.80 - 3.30 K/cumm [facility] Monocyte abs 0.89(H) 0.20 - 0.80 K/cumm [facility] Eosinophil abs 0.05 0.00 - 0.50 K/cumm [facility] Basophil abs 0.03 0.00 - 0.10 K/cumm [facility] Neutrophil pct 71.8 % [facility] Comment: [...] revised on 2017. Lymphocyte pct 15.8 % [facility] Comment: Interpretive Data Percent cell count reference [...] revised on 2017. Eosinophil pct 0.6 % [facility] Comment: Interpretive Data Percent cell count reference ranges are not reported, since discordance with absolute values may lead to misinterpretation of CBC data. Current Interpretive Data was last revised on 2017. Basophil pct 0.4 % [facility] Comment: Interpretive Data Percent cell count reference ranges are not reported, since discordance with absolute values may lead to misinterpretation of CBC data. Current Interpretive Data was last revised on 2017. Blood 11/21/2024 6:31 AM CDT 11/21/2024 6:47 AM CDT Anthony Gorman MD LAB BLOOD ORDERABLES Fi nal Result Performing Organization Address City/[facility]/ZIP Co de Phone Number [facility] Department [place] [address] * (ABNORMAL) CBC with auto differential (11/21/2024 [...] ORDERABLES Fi nal Result Performing Organization Address City/[facility]/ZIP Co de Phone Number [facility] Department [place] [address] * (ABNORMAL) Lipid panel (11/21/2024 6:31 AM [...] on 2018. Triglycerides 90 <=149 mg/dL GUILLERMINA [facility] Comment: Interpretive Data Ages < or = [...] on 2018. HDL 35(L) >=40 mg/dL GUILLERMINA [facility] Comment: Interpretive Data Ages < or = [...] 2018. LDL, calculated 46 <=129 mg/dL GUILLERMINA [facility] Comment: Interpretive Data Ages < or = [...] on 2024. Non-HDL Cholesterol 64 mg/dL [facility] Comment: Interpretive Data Ages < or = [...] Result [facility] Department [place] [address] * (ABNORMAL) Basic metabolic panel (11/21/2024 6:31 AM CDT) Sodium 135 135 - 145 mmol/L Potassium, pl 4.9 3.3 - 4.9 mmol/L GUILLER[facility]A [facility] Chloride 92(L) 97 - 110 mmol/L [facility] [...] ORDERABLES Fi nal Result Performing Organization Address City/[facility]/ZIP Co de Phone Number [facility] [place] [address] * Hepatitis C antibody (08/19/2020 12:07 PM CANINE DEPUTY) Hep C Ab Nonreactive Nonreactive [facility] Comment:Antibodies to HCV no t detected. Does NOT exclude the possibility of recent exposure to HCV. Blood specimen (specimen) 08/19/2020 12:07 PM CANINE DEPUTY 08/19/2020 12:15 PM CANINE DEPUTY Humza Trevizo MD LAB MICROB IOLOGY - GENERAL ORDERABLES Edited Result - Final [facility] [place] [address] * (ABNORMAL) Hemoglobin A1c (09/04/2019 12:14 AM CANINE DEPUTY) Hgb A1C 8.2(H) 4.0 - 5.6 % GUILLERMINA MCNALLY Estimated Average Glucose 189 mg/dL [facility]LLERMINA MCNALLY Comment: The ADA recommends reporting an estimated Average Glucose (eAG) with all Hemoglobin A1c results using the equation derived from a study of 507 normal and diabetic adults. Minority populations were underrepresented and children were not included. (Diabetes Care 31:4689-4974, 2008). The eAG is not equivalent to a fasting glucose. Blood specimen (specimen) 09/04/2019 12:14 AM CANINE DEPUTY 09/04/2019 12:58 AM CANINE DEPUTY us Brandin Pena MD LAB BLOOD ORDERABLES Final Result [facility] Department [place] [address] from Last 3 Months or Most Recently Relevant to Health Maintenance Insurance [employer] MEDICARE ADVANTAGE IDOR MEDICARE RESEARCH [employer] MEDICARE ADVANTAGE IDPA [employer] MED[employer]AGE IDPA Advance Directives For more information, please contact: [phone] * Full Code (Latest Code Status on File) Date Activated Date Inactivated Comments 11/21/2024 7:27 AM 11/22/2024 8:58 PM * Full Code Date Activated Date Inactivated Comments 08/28/2024 6:35 AM 08/29/2024 9:01 PM * Full Code Date Activated Date Inactivated Comments 09/03/2019 11:07 PM 09/04/2019 6:57 PM * Full Code Date Activated Date Inactivated Comments 07/23/2018 10:39 PM 07/24/2018 7:45 PM Care Teams Carton Maker Relationship Specialty Start Date End Date David Coppola MD PCP - General Family Medicine 10/29/17 Jacob Suarez MD Referring Physician Nephrology 12/20/18 Ros Seay MD [facility] 03/05/19 Abdifatah Villa MD [address] [facility] [address] [facility], [address] [place] [address] Consulting Physician Cardiology 09/01/20 Issa Clements MD [address] [facility] [address] [place] [address] Referring Physician General Surgery 09/01/20
--- OUTSIDE RECORDS SUMMARY | 2025-02-15 20:40 | XMS_ITS | Clinical Summary ---
Author Organization [facility] Address [address] [place] [address] Care Team Providers Care Australian Rules Footballer Name Role Phone David Coppola MD Primary Care Provider +- [phone] David Coppola MD Unavailable [phone] David Coppola MD Unavailable [phone] Virginie Corea RN Unavailable [phone] Source Comments [facility],non-owned Affiliates and Associated Physician Practices is amultiple site organization consisting of ambulatory clinics and hospital sitesin [place], [place] and [place]. This disclosure is being madepursuant to the Care Everywhere program and may not contain all information available regarding this patient. Last updated 18.[facility] Allergies Active Allergy Reactions Criticality Noted Date [...] vitamin D, ergocalciferol , (DRISDOL) 1.25 MG (87202 UT) capsule Take 1 (one) capsule by [...] included. Listing date: Not yet listed Referring Whizzer: Dr. Suarez Dialysis Type and Start Date: [...] lives with her Estela. She speaks fluent Venezuelan. She has 3 children who live in [place] and [facility]. Her support system is her and his [...] (Bezet) ms 462 ms Final Calculated R [place] degrees 82 degrees Final Calculated T axis degrees 53 degrees Final EKG Interp Final ATRIAL FIBRILLATION NONSPECIFIC ST ABNORMALITY , PROBABLY DIGITALIS EFFECT ABNORMAL ECG NO PREVIOUS ECGS AVAILABLE Confirmed by Fritz GANT, MIKE ([id number]), commissioning editor Joseph Ingram ([id number]) on 04/04/2018 1:32:49 PM Echo: 03/28/18 CONCLUSION: There is moderate concentric left ventricular hypertrophy. The left ventricular ejection fraction is estimated at 65 %. There are no regional wall motion abnormalities present. Estimated right ventricular systolic pressure is 39 mmHg. Severe biatrial enlargement Mild dilated proximal ascending aorta. DSE: n/a will need [facility] Cardiac Cath: Will need d/t length [...] Completed at OSH on 03/20/18 Cardiac Catheterization03/20/2018 [facility] Result Narrative PERIPHERAL ANGIOGRAM AND [...] groin hematoma, retroperitoneal bleed, vessel perforation; periprocedural NE, stroke, contrast induced nephropathy, and even . [...] artery access site 8. Moderate Sedation (CPT 82600) MODERATE SEDATION: Midazolam 2 mg , Fentanyl 50 mcg, start time 1157 stop time 1318, total direct [id number] monitoring of conscious sedation 81 minutes (CPT 28878) TRAINED OBSERVER: Mena Scruggs RN was trained office over for moderate sedation. ACCESS SITE: Right common femoral artery PROCEDURE: After obtaining informed consent, patient was brought to the laboratory technologist and prepped and draped in the usual sterile manner. After local anesthesia with lidocaine, right common femoral artery access was taken with micropuncture needle followed by insertion of a 5 Burmese sheath over a 0.035 inch wire. Selective right common femoral angiogram with distal runoff was performed through the 5 Burmese sheath. After this, a 5 Burmese IM catheter was advanced in the distal abdominal aorta, distal abdominal aortogram with bilateral iliac runoff was performed. The same catheter was pointed towards the left common iliac artery, selective left common iliac angiogram with distal runoff was performed. During intervention, selective left common femoral angiogram and superficial femoral angiogram was performed using the long 6 Burmese sheath. The angiographic findings and details of [...] intervention on the same vessel. The 5 Burmese sheath was exchanged with a long 90 cm sheath over 035 glide wire. The tip of the long sheath was position in the proximal popliteal artery. Patient received heparin for procedural anticoagulation, ACT was monitored throughout the procedure. Patient also received aspirin loading dose of clopidogrel 600 mg in the laboratory technologist. The totally occluded, calcified left anterior tibial [...] received dental clearance PPD: Colonoscopy: Completed at [facility] 12/02/2015 Mammo: Pap: Dental: SW: 03/28/18 Clinical Social Work Impression: It is the impression of this social services designee that Shasta Obando has several positive factors for Kidney transplant candidacy from a psychosocial perspective. Pt has a good understanding of her disease and motivation for kidney transplant. Pt appears to have adequate insurance and financial situation (children provide assistance as needed) for post transplant needs. Pt has identified adequate support system and appropriate discharge plan. No concerns regarding substance abuse identified. Plan: sanitation worker hosing machinery to provide supportive services as needed. No f/u indicated at this time.Patient appears to be a reasonable candidate for transplant from a psychosocial perspective. Post transplant arrangement forms are needed prior to being listed. Psychiatric Consult Recommended: No Transplant Food Aide: Nicole Tomas LMSW RD: 03/28/18 BMI= 28.51, overweight - Pt is considered to be a good candidate for a Kidney Transplant from a Nutrition standpoint. Recommendations/Interventions: Pt instructed to continue to work with Renal RD at HD on diet and to be compliant. Lindsay Gardner Encounter for other preprocedural examination Overview (10/08/2017): Listing date: Not yet listed Referring Whizzer: Dr. Suarez Dialysis Type and Start Date: [...] lives with her Estela. She speaks fluent Venezuelan. She has 3 chilren who live in [place] and [facility]. Her support system is her and his [...] Transplant surgery appt: Consults: cardiology consult with [facility] Notes: Not yet presented Evaluation Testing Date and Results: Labs: PTH: A1c: Glucose: PSA: GFR: Serologies: CMV Igg: EBV Igg: Albumin: Tox Screen: PRA: Echo: DSE: Cardiac Cath: CXR: Pano: US: PPD: Negative at on 05/08/2016 Colonoscopy: Completed at [facility] 12/02/2015 Mammo: Pap: Dental: SW: RD: Abnormal finding on imaging 06/15/2015 Overview (06/15/2015): Filling defect on venography of central veins. Need to rule out aortic arch aneurysm. Complication of arteriovenous dialysis fistula PVD (peripheral vascular disease) Encounters Date Type Department Care Team Description 02/03/2025 Orders Only [facility] - GI [address] [facility], [place] [address] Avis Dumont, BUS GREASER-TILTING HEAD BAND SAWYER Hepatitis B core antibody positive 11/26/2024 Travel from Last 3 Months Immunizations Immunization Administration Dates Next Due Covid Moderna primary monova lent 12+ yr 0.5mL 11/04/2021,10/15/2020,09/17/2020 Family History Medical History Relation Name Comments NE Brother 3 Heart Disease Father Hypertension Father NE Father Hypertension Mother Relation Name Status Comments [...] on file 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 [address] [facility], [address] [place] [address] [place] [address] [facility] [address] [place] [phone] [place] [address] [facility] [address] [place] [phone] Cristo Fontenot MD [address] [place] [address] 03/17/2025 1:00 PM CDT Procedure visit [facility] - GI [address] [place] [phone] 03/17/2025 1:30 PM CDT Office Visit [facility] - GI [address] [place] [phone] Avis Dumont, BUS GREASER-TILTING HEAD BAND SAWYER [address] [place] [address] [place] [address] Health Maintenance Due Date Last [...] this topic Medical Devices Implanted Type Area Bobbin Loose End Finder Device Identifier Shelf Expiration Date Model / Serial / Lot Duraflow 2 Hemodialysis Catheter Implanted:Qty: 1 on 02/22/2015 by David Buitrago MD at [facility] Right: Chest 06/07/2017 [id number] / / [id number] Raymond Acuseal Vascular Graft Implanted:Qty: 1 on 04/02/2018 by David Buitrago MD at [facility] Left: Arm 10/29/2020 [id number] / / [id number] Procedures Procedure Name Priority Date/Time Associated Diagnosis [...] glen Non-reac tive 03/28/2018 2:50 PM CDT [facility] Comment: Hepatitis C Antibody screen [...] LAB - CHEMISTRY ORDERABLES Fi nal Result [address] [phone] from Last 3 Months or Most Recently Relevant to Health Maintenance Insurance MEDICAID - [place] [facility] MANAGED MEDICARE ADV MEDICAID - OUT OF STATE Advance Directives Documents on File Type Date Recorded 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
--- OUTSIDE RECORDS SUMMARY | 2025-02-15 20:40 | XMS_ITS | Encounter Summary ---
Author Organization [facility] Healthcare Address [address] [place] [address] Care Team Providers Care Supervisor Stage Carpentry Name Role Phone David Coppola MD Primary Care Provider [phone] Jacob Suarez MD Unavailable [phone] Ros Seay MD Unavailable [phone] Abdifatah Villa MD Unavailable Issa Clements MD Unavailable [phone] Encounter Details Date Type Department Care Team (Late st Contact Info) Description 11/19/2024 Telephone [facility] Radiology [address] [place] [address] Yaritza Golden RN Social History Tobacco Use [...] often do you attend chur ch or faith services? 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 Gender Identity Not on file Sexual Orientation Not on file documented as of this encounter Plan of Treatment Scheduled Procedures Name Priority Associated Diagnoses Date/Ti me TRANSPLANT KIDNEY ESRD (end stage renal disease) (HCC) documented as of this encounter Visit Diagnoses Not on filedocumented in this encounter Care Teams Supervisor Stage Carpentry Relationship Specialty Start Date End Date David Coppola MD PCP - General Family Medicine 10/29/17 Jacob Suarez MD Referring Physician Nephrology 12/20/18 Ros Seay MD [facility] 03/05/19 Abdifatah Villa MD [address] [place] [address] Consulting Physician Cardiology 09/01/20 Issa Clements MD [address] [facility] [address] [place] [address] Referring Physician General Surgery 09/01/20 documented as of this encounter
--- OUTSIDE RECORDS SUMMARY | 2025-02-15 20:40 | XMS_ITS | Clinical Summary ---
Author Organization [facility] Address [facility] [place] [address] Care Team Providers Care Pipe Cleaner Name Role Phone David Coppola MD Primary Care Provider [phone] Social History Tobacco Use Types Packs/Day Years [...] patient's age to complete this topic Insurance [facility] MEDICAID Care Teams Pipe Cleaner Relationship Specialty Start Date End Date David Coppola MD [facility] [address] [address] PCP - General FAMILY PRACTICE 06/13/22
--- OUTSIDE RECORDS SUMMARY | 2025-02-15 20:40 | XMS_ITS | Encounter Summary ---
Author Organization [facility] Healthcare Address [address] [place] [address] Care Team Providers Care Raw Stock Drier Tender Name Role Phone David Coppola MD Primary Care Provider [phone] Jacob Suarez MD Unavailable [phone] Marnie Lara RN Unavailable Ros Seay MD Unavailable [phone] Johana Edmond RN Unavailable Abdifatah Villa MD Unavailable Issa Clements MD Unavailable [phone] Encounter Details Date Type Department Care Team (Late st Contact Info) Description 12/11/2018 Orders Only [facility] Health Information Management [address] [place] [address] Scanning, Provider Social History Tobacco Use Types Packs/Day Years Used Date Smoking Tobacco: Never Smokeless Tobacco: Never Alcohol Use Standard Drinks/Week Comments No 0 (1 standard drink = 0.6 oz pur e alcohol) Comments No Sex and Gender Information Value Date Recorded Sex Assigned at Not on file 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 [address] [place] [address] Internet Media Planner 08/21/19 Abdifatah Villa MD [address] [place] [address] Consulting Physician Cardiology 09/01/20 Issa Clements MD [address] [facility] [address] [place] [address] Referring Physician General Surgery 09/01/20 documented as of this encounter
--- OUTSIDE RECORDS SUMMARY | 2025-02-15 20:40 | XMS_ITS | Encounter Summary ---
Author Organization [facility] Address [address] [facility] [place] [address] Care Team Providers Care Teacher Associate Name Role Phone David Coppola MD Primary Care Provider + [phone] David Coppola MD Unavailable [phone] David Coppola MD Unavailable [phone] Virginie Corea RN Unavailable [phone] Encounter Details Date Type Department Care Team (Late st Contact Info) Description 03/19/2023 Telephone [facility] . Wound Care [address] 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 Gender Identity Not on file Sexual [...] Info) Description 03/10/2025 11:00 AM CDT Appointment [facility] Vascular Services [address] [facility], [address] [place], [place] [phone] [place] [address] [facility] [address] [place] [phone] [place] [address] [facility] [address] [place] [phone] Cristo Fontenot MD [address] [place] [address] 03/17/2025 1:00 PM CDT Procedure visit [facility] - GI [address] [place] [phone] 03/17/2025 1:30 PM CDT Office Visit [facility] - GI [address] [place] [phone] Avis Dumont, RATE MARKER-GLASS ROBOT OPERATOR [address] [place] [address] documented as of this encounter Visit Diagnoses Not on filedocumented in this encounter Care Teams Teacher Associate Relationship Specialty Start Date End Date David Coppola MD [address] [place] [phone] PCP - General 08/15/16 David Coppola MD [address] [place] [phone] Family Medicine 02/08/15 David Coppola MD [address] [place] [phone] Family Medicine 08/15/16 Virginie Corea, ABENA Supervisor Machine Setter 02/23/15 documented as of this encounter
--- OUTSIDE RECORDS SUMMARY | 2025-02-15 20:40 | XMS_ITS | Clinical Summary ---
Author Organization [facility] Address [address] [place] [address] Phone Care Team Providers Care Skein Tier Name Role Phone David Coppola MD Primary Care Provider [phone] Allergies Active Allergy Reactions Criticality Noted Date [...] 1 Tablet by mouth daily. Active B Blxbpjq-I-Eptwe Acid (Triphrocaps) 1 MG Capsule Take 1 Capsule by mouth daily. Active ergocalciferol (VITAMIN D) 33297 UNIT Capsule Take 1 Capsule by mouth [...] 12 units Indications: Type [address] Flat-3 Fatty Acids (FISH OIL PO) Take 1 Capsule by mouth daily. Active Encounters Date Type Department Care Team Description 01/22/2025 2:00 PM CDT Home Care Visit [address] [address] Manuela Martin RN SN - OASIS DISCHARGE 01/15/2025 2:00 PM CDT Home Care Visit [address] [address] Manuela Martin RN SN - PRIORITY VISIT 01/13/2025 Home Care Visit [address] [address] Lindsay Boyd RN CARE CONFERENCE 01/07/2025 Home Care Visit [address] [address] Mendy Kenny RN CASE COMMUNICATION 01/06/2025 9:00 AM CDT Home Care Visit [address] [address] Manuela Martin RN SN - WOUND VISIT 01/06/2025 Home Care Visit [address] [address] Mendy Kenny, [place]NA TELEPHONE ENCOUNTER 01/06/2025 Home Care Visit [address] [address] Lindsay Boyd, RN CARE CONFERENCE 01/02/2025 Home Care Visit [address] [address] Claudia Aviles OT OT - DISCHARGE SUMMARY 01/01/2025 2:00 PM CDT Home Care Visit [address] [address] Mendy Kenny, ABENA SN - PRIORITY VISIT 12/26/2024 9:00 AM CDT Home Care Visit [address] [address] Gillian June, PT PT - DISCIPLINE DISCHARGE 12/26/2024 Travel 12/25/2024 2:30 PM CDT Home Care Visit [address] [address] Adele Fang OTA OT - DISCIPLINE DISCHARGE 12/25/2024 2:00 PM CDT Home Care Visit [address] [address] Manuela Martin RN SN - PRIORITY VISIT 12/25/2024 Home Care Visit [address] [address] Adele Fang, ROSALIO CASE COMMUNICATION 12/22/2024 9:30 AM CDT Home Care Visit [address] [address] Joann Hudson PTA PT - HOME VISIT 12/18/2024 4:00 PM CDT Home Care Visit [address] [address] Manuela Martin, RN SN - PRIORITY VISIT 12/18/2024 2:30 PM CDT Home Care Visit [address] [address] Adele Fang OTA OT - HOME VISIT 12/18/2024 2:30 PM CDT Home Care Visit [address] [address] Joann Hudson, FOUNDRY TENDER PT - HOME VISIT 12/17/2024 Home Care Visit [address] [address] Gillian June, PT CASE COMMUNICATION 12/16/2024 12:30 PM CDT Home Care Visit [address] [address] Adele Fang OTA OT - HOME VISIT 12/16/2024 9:30 AM CDT Home Care Visit [address] [address] Gillian June, PT PT - REASSESSMENT 12/16/2024 Travel 12/15/2024 Home Care Visit [address] [address] Mendy Kenny RN TELEPHONE ENCOUNTER 12/12/2024 10:00 AM CDT Home Care Visit [address] [address] Mendy Kenny RN SN - PRIORITY VISIT 12/11/2024 2:30 PM CDT Home Care Visit [address] [address] Joann Hudson, FOUNDRY TENDER PT - HOME VISIT 12/11/2024 2:00 PM CDT Home Care Visit [address] [address] Adele Fang OTA OT - HOME VISIT 12/09/2024 2:30 PM CDT Home Care Visit [address] [address] Joann Hudson, FOUNDRY TENDER PT - HOME VISIT 12/07/2024 Home Care Visit [address] [address] Lindsay Boyd RN CARE CONFERENCE 12/02/2024 3:30 PM CDT Home Care Visit [address] [address] Mendy Kenny, ABENA SN - PRIORITY VISIT 11/29/2024 Home Care Visit [address] [address] Lindsay Boyd, RN TELEPHONE ENCOUNTER 11/28/2024 9:00 AM CDT Home Care Visit [address] [address] Gillian June, PT PT - INITIAL EVALUATION 11/28/2024 Travel 11/27/2024 5:00 PM CDT Home Care Visit [address] [address] Claudia Aviles OT OT - INITIAL EVALUATION 11/27/2024 1:30 PM CDT Home Care Visit [address] [address] Lindsay Boyd, RN SN - OASIS START OF CARE 11/27/2024 Plan of Care Documentation [address] [address] from Last 3 Months Social History Tobacco Use Types Packs/Day Years Used Date Smoking Tobacco: Never Smokeless Tobacco: Never Comments No Sex and Gender Information Value Date Recorded Sex Assigned at Not on file 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
--- OUTSIDE RECORDS SUMMARY | 2025-02-15 20:41 | XMS_ITS | Clinical Summary ---
Author Organization [facility] Address [address] [place] [phone] Phone Care Team Providers Care Office Nurse Practitioner Name Role Phone Unavailable Primary Care Provider Unavailabl e Medications imipramine (TOFRANIL) 25 MG tablet 0 03/04/2014 Active pioglitazone (ACTOS) 15 MG tablet 03/04/2014 Active amLODIPine (NORVASC) 5 MG tablet 03/04/2014 Active aspirin (ASPIR-LOW) 81 MG EC tablet 03/04/2014 Active lovastatin (MEVACOR) 20 MG tablet 03/04/2014 Active ergocalciferol (VITAMIN D-2) 53887 units capsule 1 weekly 03/04/2014 Active lisinopril (PRINIVIL,ZESTR IL) 20 MG tablet 1 daily 12 08/23/2017 Active diclofenac (VOLTAREN) 1 % topical gel 03/04/2014 Active omega-3 (FISH OIL) 1000 MG capsule 03/04/2014 Active clotrimazole (LOTRIMIN) 1 % cream 03/04/2014 Active ferrous sulfate 325 (65 Fe) MG tablet 03/04/2014 Active carvedilol (COREG) 3.125 MG tablet 1 ibid 12 07/17/2017 Active Methylcobalamin (S19-GUSGYB) 1 MG chewable tablet half tab daily [...] Comments Blood Pressure 119/62 09/11/2018 12:01 AM SUPERVISOR SPECIAL SERVICES Pulse 72 02/01/2015 12:01 AM CDT Temperature 36.8 C (98.3 F) 02/01/2015 12:01 AM CDT Respiratory Rate - - Oxygen Saturation - - Inhaled Oxygen Concentration - - Weight 63.5 kg (140 lb) 09/11/2018 12:01 AM SUPERVISOR SPECIAL SERVICES Height 149.9 cm (4' 11) 09/11/2018 12:01 AM SUPERVISOR SPECIAL SERVICES Body Mass Index 28.28 09/11/2018 12:01 AM SUPERVISOR SPECIAL SERVICES Plan of Treatment Health Maintenance Due Date Last Done Comments Pneumococcal PPSV23/PCV13 65 + Years / Low and Medium Risk (1 of 2 - PCV) 1996 Influenza Vaccine (#1) 2025
--- NOTE | 2025-02-15 22:18 | PC.NURSE ---
This RN attempted to give the enema to pt x2. Pt currently on commode.
--- NOTE | 2025-02-15 22:41 | PC.NURSE ---
This RN attempted to move pt back to stretcher and when pt stood up, pt requested to sit back on commode and attempt to go.
--- NOTE | 2025-02-15 22:43 | PC.NURSE ---
This RN observed a small amount of stool in commode.
[2025-02-16 00:18] VITALS: BP 149/84; PULSE 73; RESP 20; O2SAT 100
== END 2025-02-16 00:05 | disposition home or self-care (01) ==
PROVIDERS: Emergency Provider Physician Assistant; PCP Family Medicine
DX: K59.00 Constipation, unspecified (principal); E11.51 Type 2 diabetes mellitus with diabetic peripheral angiopathy without gangrene; I73.9 Peripheral vascular disease, unspecified; I27.20 Pulmonary hypertension, unspecified; I48.0 Paroxysmal atrial fibrillation; E11.22 Type 2 diabetes mellitus with diabetic chronic kidney disease; I12.0 Hypertensive chronic kidney disease with stage 5 chronic kidney disease or end stage renal disease; N18.6 End stage renal disease; Z99.2 Dependence on renal dialysis; E78.5 Hyperlipidemia, unspecified; D53.1 Other megaloblastic anemias, not elsewhere classified; K58.9 Irritable bowel syndrome, unspecified; K21.9 Gastro-esophageal reflux disease without esophagitis; M81.0 Age-related osteoporosis without current pathological fracture; M17.0 Bilateral primary osteoarthritis of knee; Z96.661 Presence of right artificial ankle joint; Z96.652 Presence of left artificial knee joint; Z86.0101 Personal history of adenomatous and serrated colon polyps; Z89.412 Acquired absence of left great toe; Z89.431 Acquired absence of right foot; Z98.42 Cataract extraction status, left eye; Z98.41 Cataract extraction status, right eye; Z79.899 Other long term (current) drug therapy; Z79.85 Long-term (current) use of injectable non-insulin antidiabetic drugs; Z79.4 Long term (current) use of insulin; Z79.84 Long term (current) use of oral hypoglycemic drugs
CPT/HCPCS: 74018; 99283

== ENCOUNTER 2025-03-28 10:05 | Inpatient (IN) | payer MEDICARE, MEDICAID, SELFPAY ==
[2025-03-28] VITALS (37 sets, daily range): BP systolic 82–170; BP diastolic 34–89; PULSE 37–81; RESP 16–22; TEMP 36.4–36.9; O2SAT 94–100; BMI 26.8
--- NOTE | ~2025-03-28 | CT_ITS ---
EXAMINATION: CT brain wo stepan, 03/28/2025 17:30 CDT HISTORY: possible seizure COMPARISON: No comparisons available. Technique: Axial images obtained of the brain without contrast. One or more of the following dose reduction techniques were used: automated exposure control, adjustment of the mA and/or kV according to patient size, use of iterative reconstruction technique. Findings: No acute infarct or parenchymal hemorrhage. No abnormal mass or mass effect. No midline shift. No extra-axial fluid collections. No hydrocephalus. Mastoid air cells unremarkable. Sinuses and orbits unremarkable. No acute fracture. No significant facial or scalp soft tissue swelling evident. No radiopaque foreign body is seen. Impression: 1.No acute intracranial abnormality. Reviewed, dictated and finalized at location A. Impression: 1.No acute intracranial abnormality.
--- NOTE | ~2025-03-28 | XR_ITS ---
Examination: XR chest 1V portable Clinical History: hypoxia Comparison: 1 day prior Technique: Portable AP Findings: Cardiomegaly. Developing diffuse interstitial markings. Mild bibasilar atelectasis persists. Mild hyperinflation. No acute bony abnormality. Right subclavian stents and right upper and left upper extremity stents. IMPRESSION: 1. Developing interstitial pulmonary edema. Reviewed, dictated and finalized at location R.
--- NOTE | ~2025-03-28 | CT_ITS ---
CT abdomen pelvis w con Clinical History: rlq pain, status post vascular surgery 10 days ago . Comparison: CT abdomen and pelvis 02/12/2025 Technique: Axial images lung bases to symphysis pubis IV contrast information not listed in PACS Coronal, sagittal reformats CT images acquired with automatic exposure control for dose reduction DLP: 178 mGy-cm Findings: Lung bases: Trace effusions. Visualized heart and pericardium: Cardiomegaly. Liver: Enlarged. Steatosis. Gallbladder: Trace wall thickening. Tiny stone. Spleen: Unremarkable. Pancreas: Unremarkable. Adrenal glands: Unremarkable. Kidneys: Atrophic. Multiple cysts bilaterally Right kidney- No hydronephrosis. No renal stones. Left kidney- No hydronephrosis. No renal stones. Distal esophagus/stomach: Unremarkable. Small bowel loops: Normal caliber and wall thickness. Colon: Severe wall thickening proximal loops. Normal RLQ appendix. Nodes: No enlarged nodes. Peritoneum: No ascites. No free air. Urinary bladder: Unremarkable. Uterus: Unremarkable. Adnexa: No masses. Bones: No acute bony abnormality. Diffuse sclerosis/renal osteodystrophy. Soft tissues: Unremarkable. Aorta: No aneurysm or dissection. Aortoiliac atherosclerotic disease. Celiac artery ostial stenosis. Visualized proximal SFA stenoses. IVC: Unremarkable. Main portal vein/SMV/splenic vein: Patent. IMPRESSION: 1. Colitis. Likely infectious or inflammatory but given severe atherosclerotic disease, ischemic remains possible. Recommend correlation with lactate. Reviewed, dictated and finalized at location R.
--- NOTE | ~2025-03-28 | XR_ITS ---
Examination: XR chest 2V Clinical History: SOB Comparison: 02/13/2025 Technique: PA and Lateral Findings: Cardiomegaly. Minimal bibasilar atelectasis and/or pleural effusions. Mild hyperinflation. No acute bony abnormality. Right subclavian stent. Right upper extremity stents. Left upper extremity stents. IMPRESSION: 1. Minimal bibasilar atelectasis and/or trace pleural effusions. 2. No other acute abnormality. Reviewed, dictated and finalized at location R.
--- NOTE | 2025-03-28 10:16 | ED_ITS ---
HPI - SOB/Dyspnea General Chief Complaint: Shortness of Breath/Dyspnea Stated Complaint: FALL-SOB Time Seen by Provider: 03/28/25 10:10 Source: patient and EMS Mode of arrival: EMS Limitations: no limitations History of Present Illness HPI Narrative: 79 years old female came to the ED by ambulance from home complaining of increasing shortness of breath, status post right lower extremity vascular surgery at [facility] 10 days ago subsequently patient started having shortness of breath, blood in the stool and pain at the right lower quadrant patient was placed on Plavix and aspirin 3 days ago, last dialysis yesterday Patient denies any fever, chills, nausea, vomiting Related Data Home Medications ?Medication ?Instructions ?Recorded ?Confirmed ?Last Taken ?Type acetaminophen 500 mg tablet See Rx Instructions PO Q4H PRN Pain 02/20/20 02/12/25 06/05/23 History (Acetaminophen Extra Strength) atorvastatin 40 mg tablet 40 mg PO DAILY 10/25/21 08/01/3012/03/24 History vitamin B complex and vitamin C 1 cap PO DAILY 2 02/12/25 12/03/24 History no.20-folic acid 1 mg capsule (Renal Caps) liraglutide 0.6 mg/0.1 mL (18 mg/3 1.2 mg subcut HS 02/12/25 12/03/24 History mL) subcutaneous pen injector (Victoza 2-Agustín) clotrimazole 1 % topical cream 1 applic topical Q12H 0 09/27/23 02/12/25 12/03/24 History (Antifungal (clotrimazole)) biotin 5 mg capsule 5 mg PO DAILY 10/08/2402/1212/03/24 History diclofenac sodium 1 % topical gel 2 g topical QID PRN discomfort 02/12/25 02/12/25 Unknown History (Arthritis Pain (diclofenac)) Allergies Allergy/AdvReac Type Severity Reaction Status Date / Time cephalexin Allergy Mild Rash Verified 02/18/25 10:15 enalapril Allergy Unknown cough Verified 02/18/25 10:15 pioglitazone Allergy Unknown Unknown Verified 02/18/25 10:15 cefazolin AdvReac Mild nausea/dizz Verified 02/18/25 10:15 iness tramadol AdvReac Unknown hallucinati Verified 02/18/25 10:15 ons gabapentin AdvReac Hallucinati Verified 02/18/25 10:15 ng Review of Systems 2 Review of Systems: All systems reviewed & are unremarkable except as noted in HPI and below PMFSH Past Medical History Medical History 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 Spinal stenosis at L4-L5 level High-grade central canal stenosis noted on MRI February 2017 Pulmonary hypertension Echocardiogram August 2019: EF 65-70 %, indeterminate left ventricular diastolic function, mild biatrial enlargement, mild mitral valve regurgitation, moderate tricuspid regurgitation, mild pulmonary hypertension with RVSP of 39 Hiatal hernia Thoracic ascending aortic aneurysm 4.[address] scan from August 2019 Anemia of chronic disease Megaloblastic anemia Paroxysmal atrial fibrillation Type 2 diabetes mellitus Hemoglobin A1c was 6.6 in July 2019. Hypertension Osteoporosis Hyperlipidemia AV fistula Left upper extremity End stage renal disease on dialysis Dialysis days are Sunday, Sunday, and Sunday. She is on the transplant list at [facility]. Osteoarthritis of both knees Staphylococcal septicemia (~2013) Closed fracture of lateral portion of right tibial plateau (~2014) Surgical History Surgical History Amputated toe of left foot History of bilateral cataract extraction Amputation at midfoot 5th digit right footAnd the great toe on the left History of arthroplasty of right ankle Presence of Watchman left atrial appendage closure device History of arthroscopy (~12/07/12) wrist History of colonoscopy (~12/02/15) History of knee replacement (~2015) right Family History Family History Father Hypertension Heart disease Mother Diabetes mellitus Hypertension Tobacco dependence Lung cancer Sibling Heart disease Social History Social History Social History: The patient is and lives in [place]. She is originally from [place]. 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 She has 2 daughters who live in [place]. She has 1 son who lives in [facility] . She designates her daughters as her surrogate decision makers. She is a lifelong nonsmoker. No alcohol or drug abuse. Primary care physician: Dr. David Coppola Code status: Full code Smoking status: Never smoker Second hand tobacco smoke exposure: No Alcohol intake: never Substance use: never Substance use type: does not use Do You Feel Safe in your Home?: Yes Lack of Transportation: No Lack of Food: Never True Current Housing: I Have Housing Concerned About Future Housing: No Difficulty Paying Gas/Electric Bills: No Difficulty Paying for Meds: No Currently Unemployed: No Education: High School Diploma/GED Difficulty w/ Childcare or Family Care: No Gender identity (if verbalized by the patient): Female Spiritual care concerns: No Agree to blood products: Yes Exam 2 Narrative: General appearance: Well-developed, well-nourished Skin: Pail Head: Normocephalic, nontraumatic Eyes: Clear conjunctiva ENT: Oropharynx normal, ears normal, nose normal Neck: Supple, nontender Chest and respiratory: Airway patent, labored breathing, mild diminution of air entry bilaterally mainly at the bases Heart: Regular rate/rhythm Abdomen: Soft, tenderness right lower quadrant, no organomegaly, quiet bowel sounds Vascular: Normal peripheral pulses, normal capillary refill. Musculoskeletal: Normal range of motion, nontender back Neurologic: Alert and oriented ?3, BRILLIANDEER LOOPER is normal as tested, no gross motor deficit Course Consultations Consultation #1: Dr. Robles Admit to hospitalist Date: 03/28/25 Vital Signs Vital signs: Vital Signs Temperature 36.9 C 03/28/25 10:12 Pulse Rate 44 L 03/28/25 10:12 Respiratory Rate 22 H 03/28/25 10:12 Blood Pressure 157/53 H 03/28/25 10:12 Pulse Oximetry 99 03/28/25 10:12 Oxygen Delivery Room Air 03/28/25 10:12 Temperature 36.9 C 03/28/25 10:12 Pulse Rate 74 03/28/25 10:29 Respiratory Rate 19 03/28/25 10:29 Blood Pressure 157/53 H 03/28/25 10:29 Pulse Oximetry 100 03/28/25 10:29 Oxygen Delivery Room Air 03/28/25 10:20 MDM - SOB/Dyspnea MDM Narrative Medical decision making narrative: Patient presents with multiple symptoms Vital signs showing heart rate of 84, respiration 22 otherwise within normal limit Physical examination showing debilitated patient, pale, looks severely L new with labored breathing Differential diagnosis include dehydration, pneumonia, electrolyte imbalance, infection, congestive heart failure, coronary disease, anemia A blood workup today includes CBC, CMP, troponin, proBNP showed hemoglobin 5.9, MCV 103.7, sodium 132, BUN 45, creatinine 3.29, alkaline phosphatase 178, Chest x-ray showed trace pleural effusion versus atelectasis CT abdomen and pelvis with IV contrast showed colitis Admit to hospitalist Diagnosis GI bleed, anemia, colitis, hemodialysis patient Differential Diagnosis Differential diagnosis: Likely other (As above) Medical Records Attestation: I reviewed the patient's medical records. Lab Data 03/28/25 10:38 03/28/25 10:38 Labs: Lab Results 03/28/25 03/28/25 Range/Units 10:38 12:14 WBC 7.1 (4.5-10.0) K/mm3 RBC 1.90 L (4.2-5.4) M/mm3 Hgb 5.9 L* (12.0-15.0) g/dL Hct 19.7 L* (37.0-47.0) % MCV 103.7 H (80-100) fl MCH 31.1 (26-34) pg MCHC 29.9 L (32-36) g/dl RDW 15.9 H (11.5-14.5) % Plt Count 166 (150-375) k/mm3 MPV 10.6 H (7.4-10.4) fl Immature Gran % (Auto) 0.6 H (0-0.5) % Neut % (Auto) 81.4 H (45.5-73.1) % Lymph % (Auto) 8.7 L (18.3-44.2) % Ada % (Auto) 8.7 H (2.6-8.5) % Eos % (Auto) 0.3 (0-4.4) % Baso % (Auto) 0.3 (0.2-1.2) % Lymph # (Auto) 0.62 L (0.9-3.2) K/mm3 Ada # (Auto) 0.6 (0.1-0.6) K/mm3 Eos # (Auto) 0.0 (0-0.3) K/mm3 Baso # (Auto) 0.0 (0.0-0.1) K/mm3 Abs Immat Gran (auto) 0.04 H (0.00-0.031) K/mm3 Absolute Neuts (auto) 5.8 (1.3-6.7) K/mm3 Absolute Nucleated RBC 0.000 (0.0-0.012) K/mm3 Band Neutrophils % Not Reportable Nucleated RBC % 0.0 (0.0-0.2) % Platelet Estimate Adequate (Adequate) Polychromasia Occasional Hypochromasia 1+ Basophilic Stippling Occasional Macrocytosis 1+ (NORMAL) Schistocytes None seen Sodium 132 L (137-145) mmol/L Potassium 3.8 (3.4-5.0) mmol/L Chloride 93 L (98-107) mmol/L Carbon Dioxide 32 H (22-30) mmol/L Anion Gap 7 (4-12) mmol/L BUN 45 H D (7-17) mg/dL Creatinine 3.29 H (0.7-1.0) mg/dL Estim Creat Clear Calc Not Reportable Estimated GFR 14 L (59 - ) Glucose 169 H (65-110) mg/dL Calcium 9.6 (8.4-10.2) mg/dL Total Bilirubin 0.5 (0.2-1.3) mg/dL AST 32 (14-36) U/L ALT 23 (6-35) U/L Alkaline Phosphatase 178 H (38-126) U/L Total Protein 5.9 L (6.3-8.2) g/dL Albumin 3.5 (3.5-5.1) g/dL Blood Type O Positive Antibody Screen Negative Crossmatch See Detail Imaging Data Radiologist's impression: Impressions Chest X-Ray 03/28/25 11:20 IMPRESSION: 1. Minimal bibasilar atelectasis and/or trace pleural effusions. 2. No other acute abnormality. Abdomen/Pelvis CT 03/28/25 12:11 IMPRESSION: 1. Colitis. Likely infectious or inflammatory but given severe atherosclerotic disease, ischemic remains possible. Recommend correlation with lactate. ECG Data EKG #1: Attestation: I personally reviewed and interpreted this ECG as follows: ECG completion date: 03/28/25 Interpretation: AFib with controlled ventricular response at 78 beats per minute, right axis deviation, nonspecific ST T-wave abnormality compared to EKG on February 12, 2025 T-wave abnormality now present Critical Care Time Critical Care Time Critical Care Time: Yes Total Critical Care Time: 30 Discharge Plan Discharge Clinical Impression: Hemodialysis patient GI (gastrointestinal bleed) Qualifiers: GI bleed type/associated pathology: unspecified gastrointestinal hemorrhage type Qualified Code(s): K92.2 - Gastrointestinal hemorrhage, unspecified Anemia Qualifiers: Anemia type: unspecified type Qualified Code(s): D64.9 - Anemia, unspecified Patient Disposition: Still a Patient Condition: Guarded Prognosis Patient Language: Yoruba Prescriptions: No Action atorvastatin 40 mg tablet 40 mg PO DAILY Renal Caps 1 mg capsule 1 cap PO DAILY dicyclomine 10 mg capsule See Rx Instructions .ROUTE .COMPLEX Qty: 60 5RF Dose Instruction: TAKE 1 CAPSULE BY MOUTH TWICE DAILY NEEDED FOR ABDOMINAL PAIN Rx Instructions: TAKE 1 CAPSULE BY MOUTH TWICE DAILY NEEDED FOR ABDOMINAL PAIN (DME) rollator See Rx Instructions .Route .MEDSUPPLY Qty: 1 0RF Rx Instructions: As directed Prolia 60 mg/mL syringe 60 mg subcut [id number] Qty: 1 1RF Patient Comments: Due this month (May). Gets from primary care Doctor. can have caregiver bring in clotrimazole [Antifungal (clotrimazole)] 1 % cream 1 applic topical Q12H tobramycin 0.3 % drops 1 drp EACH EYE Q4H Qty: 5 1RF liraglutide [Victoza 2-Agustín] 0.6 mg/0.1 mL (18 mg/3 mL) pen injector 1.2 mg subcut HS Rx Instructions: INJECT 1.8 MG (0.3 ML) SUB-Q AT BEDTIME. For diabetes diclofenac sodium [Arthritis Pain (diclofenac)] 1 % gel 2 g topical QID PRN (Reason: discomfort) Rx Instructions: apply to single elbow, wrist or hand; for hand includes palm/fingers/back of hand levofloxacin 750 mg tablet 750 mg PO .q48 4 Days Qty: 2 0RF metronidazole 500 mg tablet 500 mg PO Q8H 4 Days Qty: 12 0RF polyethylene glycol 3350 [Miralax] 17 gram/dose powder 17 g PO DAILY PRN (Reason: constipation) 7 Days Qty: 119 0RF quetiapine [Seroquel] 25 mg tablet 25 mg PO HS 7 Days Qty: 7 0RF acetaminophen [Acetaminophen Extra Strength] 500 mg Tablet See Rx Instructions PO Q4H PRN (Reason: Pain) Rx Instructions: 325 orally every 4 hours PRN; (DME) blood sugar diagnostic Strip See Rx Instructions .ROUTE .MEDSUPPLY Qty: 500 3RF Rx Instructions: As directed test 6 x day (DME) hortencia strickland See Rx Instructions .Route .MEDSUPPLY Qty: 1 0RF Rx Instructions: As directed (DME) Assited gait device See Rx Instructions .Route .MEDSUPPLY Qty: 1 0RF Rx Instructions: Rolscotty Walker biotin 5 mg capsule 5 mg PO DAILY (DME) blood sugar diagnostic Strip See Rx Instructions .Route Qty: 500 2RF Rx Instructions: Use to check blood sugars 6 times a day tenofovir alafenamide 25 mg tablet 25 mg PO DAILY Qty: 90 2RF Rx Instructions: Take every day at suppertime with the meal trazodone 50 mg tablet 100 mg PO QHS Qty: 180 1RF pantoprazole 40 mg tablet,delayed release (DR/EC) 40 mg PO Q12HR Qty: 60 5RF (DME) pen needle, diabetic 32 gauge x 5/32 needle See Rx Instructions .ROUTE .COMPLEX Qty: 100 3RF Dose Instruction: USE DIRECTED Rx Instructions: USE DIRECTED insulin degludec [Tresiba FlexTouch U-100] 100 unit/mL (3 mL) insulin pen 10 unit subcut HS Qty: 15 3RF Januvia 100 mg tablet 100 mg PO DAILY Qty: 90 1RF Follow-up/Referrals: David Coppola MD [Primary Care Provider, [facility]]
--- NOTE | 2025-03-28 10:22 | ECG_ITS ---
Test Date: 2025-03-28 10:27:58 Measurements Intervals [place] Rate: 78 P: 0 VA: 0 QRS: 101 QRSD: 95 T: -3 QT: 420 QTc: 479 Interpretive Statements ATRIAL FIBRILLATION RIGHT AXIS DEVIATION [QRS AXIS > 100] NONSPECIFIC ST & T-WAVE ABNORMALITY ABNORMAL ECG Compared to ECG 02/12/2025 08:11:42 NO SIGNIFICANT DIFFERENCE Electronically Signed On 03-29-2025 08:03:58 CDT by David Rodriguez M.D.
--- OUTSIDE RECORDS SUMMARY | 2025-03-28 10:25 | XMS_ITS | Encounter Summary ---
Author Organization [facility] Address [address] [place] [address] Care Team Providers Care Vice Investigator Name Role Phone David Coppola MD Primary Care Provider + [phone] Daivd Coppola MD Unavailable [phone] David Coppola MD Unavailable [phone] Virginie Corea RN Unavailable [phone] Encounter Details Date Type Department Care Team (Late st Contact Info) Description 04/10/2018 Nutrition [facility] [address] [place] [phone] [address]/LAURA Social History Tobacco Use Types Packs/Day Years Used Date Smoking Tobacco: Never Smokeless Tobacco: Never Alcohol Use Standard Drinks/Week Comments No 0 (1 standard drink = 0.6 oz pur e alcohol) Comments No Sex and Gender Information Value Date Recorded Sex Assigned at Not on file Legal Sex Female 5:40 PM BOW MACHINE OPERATOR Gender Identity Not on file [...] Care Team (Late st Contact Info) Description 06/16/2025 1:00 PM BOW MACHINE OPERATOR Procedure visit [facility] [place] [address] [facility] [address] [facility] [place] [address] 06/16/2025 1:30 PM BOW MACHINE OPERATOR Office Visit [facility] [place] [address] [facility] [address] [facility], [place] [address] Avis Dumont, HOISTING LABORER-WELDER [employer] [address] [place] [address] documented as of this encounter Visit Diagnoses Not on filedocumented in this encounter Care Teams Vice Investigator Relationship Specialty Start Date End Date David Coppola MD [address] [place] [phone] PCP - General 08/15/16 David Coppola MD [address] [place] [phone] Family Medicine 02/08/15 David Coppola MD [address] [place] [phone] Family Medicine 08/15/16 Virginie Corea, ABENA Monogram Machine Operator 02/23/15 documented as of this encounter
--- OUTSIDE RECORDS SUMMARY | 2025-03-28 10:26 | XMS_ITS | Clinical Summary ---
Author Organization [facility] Address [address] [place] [address] Phone Care Team Providers Care Rug Frame Mounter Name Role Phone David Coppola MD Primary Care Provider [phone] Allergies Active Allergy Reactions Criticality Noted Date [...] Comments Blood Pressure 71/53 09/01/2020 2:54 PM TENNIS CAMP INSTRUCTOR 148 /36 Pulse 72 09/01/2020 2:54 PM TENNIS CAMP INSTRUCTOR Temperature 36.4 C (97.6 F) 09/01/2020 2:54 PM TENNIS CAMP INSTRUCTOR Respiratory Rate - - Oxygen Saturation 97% 09/01/2020 2:54 PM TENNIS CAMP INSTRUCTOR Inhaled Oxygen Concentration - - Weight 56.6 kg (124 lb 11.2 oz) 09/01/2020 2:54 PM TENNIS CAMP INSTRUCTOR Height 144.8 cm (4' 9) 09/01/2020 2:54 PM TENNIS CAMP INSTRUCTOR Body Mass Index 26.98 09/01/2020 2:54 PM TENNIS CAMP INSTRUCTOR Plan of Treatment Health Maintenance Due Date [...] 1 , 04/09/2014, 04/09/2014 Insurance MEDICAID [place] [id number] Care Teams Rug Frame Mounter Relationship Specialty Start Date End Date David Coppola MD PCP - General Family Practice 05/14/20
--- OUTSIDE RECORDS SUMMARY | 2025-03-28 10:26 | XMS_ITS | Encounter Summary ---
Author Organization [facility] Address [address] [facility] [place] [address] Care Team Providers Care Sales Officer Name Role Phone David Coppola MD Primary Care Provider + [phone] David Coppola MD Primary Care Provider + [phone] David Coppola MD Unavailable [phone] David Coppola MD Unavailable [phone] Virginie Corea RN Unavailable [phone] Encounter Details Date Type Department Care Team (Late st Contact Info) Description 02/08/2015 SS Outpatient Visit EXTERNAL NON[facility] [place] [address] [phone] Social History Tobacco Use Types Packs/Day Years Used Date Smoking Tobacco: Never Alcohol Use Standard Drinks/Week Comments No 0 (1 standard drink = 0.6 oz pur e alcohol) Comments Unknown Sex and Gender Information Value Date Recorded Sex Assigned at Not on file Legal Sex Female 5:40 PM ELECTRONIC INDUSTRIAL CONTROLS MECHANIC Gender Identity Not on file Sexual Orientation Not on file documented as of this encounter Plan of Treatment Upcoming Encounters Date Type Department Care Team (Late Contact Info) Description 06/16/2025 1:00 PM ELECTRONIC INDUSTRIAL CONTROLS MECHANIC Procedure visit [facility] - [address] [phone] 06/16/2025 1:30 PM ELECTRONIC INDUSTRIAL CONTROLS MECHANIC Office Visit [facility] [place] [address] [facility] [place] [address] Avis Dumont, HUMAN CAPITAL MANAGER-SALES REPRESENTATIVE [facility] [address] [place] [address] documented as of this encounter Visit Diagnoses Not on filedocumented in this encounter Care Teams Sales Officer Relationship Specialty Start Date End Date David Coppola MD [address] [place] [phone] PCP - General Family Medicine 02/08/15 08/14/16 David Coppola MD [address] [place] [phone] PCP - General 08/15/16 David Coppola MD [address] [place] [phone] Family Medicine 02/08/15 David Coppola MD [address] [place] [phone] Family Medicine 08/15/16 Virginie Corea, ABENA Correctional Nurse 02/23/15 documented as of this encounter
--- OUTSIDE RECORDS SUMMARY | 2025-03-28 10:26 | XMS_ITS ---
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 Role Phone David Coppola MD Primary Care Provider [phone] Jacob Suarez MD Unavailable Ros Seay MD Unavailable Abdifatah Villa MD Unavailable Issa Clements MD Unavailable [phone] Dialysis Access Sites Type Status Location [...] Associated Diagnosis Comments POCT GLUCOSE DEVICE Routine 03/20/2025 1 2:23 PM CDT EGFR Routine 03/19/2025 8:25 PM CDT DIFFERENTIAL AUTO Routine 03/19/2025 8:2 5 PM CDT CBC WITH AUTO DIFFERENTIAL Routine 03/19/2025 8:25 PM CDT BASIC METABOLIC PANEL Routine 03/19/2025 8:25 PM CDT POCT GLUCOSE DEVICE Routine 03/19/2025 7 :48 PM CDT POCT GLUCOSE DEVICE Routine 03/19/2025 5 :45 PM CDT POCT ACTIVATED CLOTTING TIME, LOW RANGE Routine 03/19/2025 2:50 PM CDT POCT ACTIVATED CLOTTING TIME, LOW RANGE Routine 03/19/2025 1:56 PM CDT ANGIOGRAM LOWER EXTREMITY RIGHT Schedule Routine, Read Routine (OP Routine) 03/19/2025 12:37 PM CDT Atherosclerosis of [place] artery of right lower extremity with other clinical manifestation 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) PAD (peripheral artery disease) POCT GLUCOSE DEVICE Routine 03/19/2025 7 :47 AM CDT HEPATITIS B SURFACE ANTIGEN STAT 03/19/2025 7:26 AM CDT EGFR Routine 03/18/2025 8:29 PM CDT DIFFERENTIAL AUTO Routine 03/18/2025 8:2 9 PM CDT PHOSPHORUS Routine 03/18/2025 8:29 PM CDT MAGNESIUM Routine 03/18/2025 8:29 PM CDT COMPREHENSIVE METABOLIC PANEL Routine 03/18/2025 8:29 PM CDT CBC WITH AUTO DIFFERENTIAL Routine 03/18/2025 8:29 PM CDT POCT GLUCOSE DEVICE Routine 03/18/2025 7 :52 PM CDT POCT GLUCOSE DEVICE Routine 03/18/2025 4 :29 PM CDT 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 Gabapentin Anaphylaxis,Dizzines s, Hallucinations High 05/24/2020 Sulfamethoxazole-Trim ethoprim Anaphylaxis High 08/09/2020 Medications liraglutide (VICTOZA) 0.6 mg/0.1 mL (18 mg/3 mL) injectionIndica tions:type 2 diabetes mellitus Inject 1.2 mg under the skin nightly Indications: type 2 diabetes mellitus Active ergocalciferol (VITAMIN D) 50,000 unit capsule Take 1 capsule (50,000 Units total) by mouth once a week On Sunday03/04/20 14 Active acetaminophen 500 mg capsule Take 2 capsules (1,000 mg total) by mouth every 6 (six) hours as needed for pain Active SITagliptin (JANUVIA) 100 mg tabletIndicatio ns:type 2 diabetes mellitus Take 1 tablet (100 mg total) by mouth daily Active Tresiba FlexTouch U-100 100 unit/mL (3 mL) insulin pen Inject 0.1 mL (10 Units total) under the skin nightly 11/23/19 20 Active clotrimazole 1 % cream Apply topically 2 (two) times a day as needed Active traZODone (DESYREL) 50 mg tablet Take 2 tablets (100 mg total) by mouth nightly 09/14/19 22 Active vitamin B complex with C-folic acid (NEPHROCAP) 1 mg capsuleIndicati ons:Vitamin Deficiency Prevention Take 1 capsule by mouth daily Active carvediloL (COREG) 6.25 mg tablet Take 1 tablet (6.25 mg total) by mouth 2 (two) times a day with meals Active dicyclomine (BENTYL) 10 mg capsule Take 1 capsule (10 mg total) by mouth Active lisinopriL (PRINIVIL,ZESTR IL) 10 mg tablet Take 1 tablet (10 mg total) by mouth daily Active tenofovir alafenamide (VEMLIDY) 25 mg tablet Take 1 tablet (25 mg total) by mouth daily Active omega-3 fatty acids-fish oil 300-1,000 mg capsule Take 2 capsules (2 g total) by mouth daily Active aspirin 81 mg enteric coated tabletIndicatio ns:prevention of thrombosis Take 1 tablet (81 mg total) by mouth daily 30 tablet 03/21/[address] (PROTONIX) 40 mg EC tabletIndicatio ns:GI Bleed Take 1 tablet (40 mg total) by mouth 2 (two) times a day 60 tablet 03/20/20 25 025 Active ticagrelor (Brilinta) 90 mg tablet Take 1 tablet (90 mg total) by mouth 2 (two) times a day 60 tablet 03/20/20 25 Active atorvastatin (LIPITOR) 40 mg tabletIndicatio ns:PAD (peripheral artery disease) Take 1 tablet by mouth once daily 90 tablet 3 03/23/20 25 Active Prolia 60 mg/mL syringe Q 6 months 03/09/20 22 025 Discontinued(St op Taking at Discharge) pantoprazole DR (PROTONIX) 40 mg EC tablet Take 1 tablet (40 mg total) by mouth 2 (two) times a day 025 Discontinued biotin 5 mg tablet Take 5 mg by mouth daily 025 Discontinued(St op Taking at Discharge) oxyCODONE (ROXICODONE) 5 mg immediate release tabletIndicatio ns:Pain Take 0.5 tablets (2.5 mg total) by mouth every 4 (four) hours as needed (severe pain) 5 tablet 11/23/19 25 025 Discontinued(St op Taking at Discharge) aspirin 81 mg chewable tablet Take 1 tablet (81 mg total) by mouth daily 30 tablet 1 11/23/19 25 025 Discontinued(St op Taking at Discharge) atorvastatin (LIPITOR) 40 mg tabletIndicatio ns:PAD (peripheral artery disease) Take 1 tablet by mouth once daily 90 tablet 12/25/19 25 09/15/2 025 Discontinued clopidogreL (PLAVIX) 75 mg tablet Take 1 tablet (75 mg total) by mouth daily 30 tablet 11 02/20/20 025 Discontinued(St op Taking at Discharge) Active Problems Problem Noted Date Diagnosed Date End stage kidney disease 03/18/2025 DM (diabetes mellitus) 03/18/2025 Assessment & Plan (03/20/2025 3:52 PM CDT): Home regimen: Januvia, tresiba, and Victoza. Reports blood sugars well controlled at home. - holding home regimen. Accu check qid and SSI ordered. Assessment & Plan (03/19/2025 4:59 PM CDT): Home regimen: Januvia, tresiba, and Victoza. Reports blood sugars well controlled at home. - holding home regimen. Accu check qid and SSI ordered. Assessment & Plan (03/18/2025 4:40 PM CDT): Home regimen: Januvia, tresiba, and Victoza. Reports blood sugars well controlled at home. - holding home regimen. Accu check qid and SSI ordered. Pain and swelling of right lower extremity 11/21 ARCADIO (obstructive sleep apnea)- concern for 08/29 Non-healing wound of right lower extremity 08/28 Assessment & Plan (11/22/2024 1:43 PM CDT): Likely secondary to above. Continue wound care per outpatient providers. Assessment & Plan (11/21/2024 3:39 PM CDT): Likely secondary to above. Continue wound care per outpatient providers. Peptic ulcer 08/28/2024 Assessment & Plan (03/20/2025 3:52 PM CDT): History of peptic ulcer with GIB. - continue PPI BID - OP GI follow up for plan of EGD Assessment & Plan (03/19/2025 4:59 PM CDT): History of peptic ulcer with GIB. - continue PPI BID - OP GI follow up for plan of EGD Assessment & Plan (03/18/2025 4:40 PM CDT): History of peptic ulcer with GIB. - continue PPI. - OP GI follow up for plan of EGD Assessment & Plan (11/22/2024 1:43 PM CDT): History of peptic ulcer with GIB. Patients daughter reports recent admission to [facility] due to concern for GIB. Patient followed up with her outpatient GI. Planning for EGD at the end of November - continue PPI. Assessment & Plan (11/21/2024 3:03 PM CDT): History of peptic ulcer with GIB. Patients daughter reports recent admission to [facility] due to concern for GIB. Patient followed up with her outpatient GI. Planning for EGD at the end of November - closely monitor for bleeding due to starting asa and Plavix as above - continue PPI Assessment & Plan (08/28/2024 1:08 PM FRAUD REPRESENTATIVE): History of peptic ulcer with GIB Denies sx continue PPI Heart valve disease 04/06/2023 History of GI bleed 02/04/2023 Bradycardia 09/29/2022 Bleeding 09/29/2022 Idiopathic hypotension 09/13/2021 Complication of arteriovenous dialysis fistula 0 09/07/2020 Assessment & Plan (03/20/2025 3:52 PM CDT): She has been having prolonged bleeding after HD and has stopped taking ASA and plavix because of this. Presents 03/18 for fistulagram to evaluate for central stenosis. -s/p Right upper extremity fistulagram and balloon angioplasty Assessment & Plan (03/19/2025 4:59 PM CDT): She has been having prolonged bleeding after HD and has stopped taking ASA and plavix because of this. Presents 03/18 for fistulagram to evaluate for central stenosis. -s/p Right upper extremity fistulagram and balloon angioplasty Assessment & Plan (03/18/2025 4:40 PM CDT): She has been having prolonged bleeding after HD and has stopped taking ASA and plavix because of this. -Presents today for fistulagram to evaluate for central stenosis. - Now s/p Right upper extremity fistulagram and balloon angioplasty - ok to use per IR Type 2 diabetes mellitus wit h diabetic peripheral angiopathy and gangrene, without long-term current use of insulin 08/21/2020 Assessment & Plan (08/28/2024 1:05 PM FRAUD REPRESENTATIVE): Home regimen Januvia, tresiba 10 and Victoza. Reviewed PCP records noted hypoglycemia last hospital admit with basal insulins continued Will continue januvia and hold tresiba and victoza SSI Family history of ischemic h eart disease and other diseases of the circulatory system 11/27/2019 Critical limb ischemia of right lower extremity 10/14/2019 Overview (10/14/2019): Added automatically from request for surgery [id number] Assessment & Plan (03/20/2025 3:52 PM CDT): Angiogram with occlusion of the AT, PT, and peroneal s/p successful revascularization on november 2024 which failed to c/w medical tt ( ASA+ Plavix) 2/2 bleeding -Repeat revascularization with IR 03/19 -given ASA/Brilinta post operatively, continue at discharge -Cont statin Assessment & Plan (03/19/2025 4:59 PM CDT): Angiogram with occlusion of the AT, PT, and peroneal s/p successful revascularization on november 2024 which failed to c/w medical tt ( ASA+ Plavix) 2/2 bleeding -Repeat revascularization with IR /11 -given ASA/Brilinta post operatively, awaiting additional recs from IR team -Cont statin Assessment & Plan (03/18/2025 4:40 PM CDT): - Angiogram with occlusion of the AT, PT, and peroneal s/p successful revascularization on november 2024. - failed to c/w medical tt ( ASA+ Plavix) 2/2 bleeding Plan : Repeat revascularization tmw with IR 03/19 Labs ordered NPO @[place] Assessment & Plan (08/28/2024 12:59 PM FRAUD REPRESENTATIVE): S/p uncomplicated balloon angioplasty of the AT, [...] (10/14/2019): Added automatically from request for surgery [id number] Presence of Watchman left atrial appendage closu re device 08/29/2018 Atrial fibrillation 06/13/2018 Overview (06/13/2018): Added automatically from request for surgery [id number] Assessment & Plan (03/20/2025 3:52 PM CDT): Rate controlled and s/p Watchman due to prior GIB. - coreg was held on last admission 2/2 low BP, CTM Assessment & Plan (03/19/2025 8:25 AM CDT): Rate controlled and s/p Watchman due to prior GIB. - coreg was held on last admission 2/2 low BP, CTM Assessment & Plan (03/18/2025 4:40 PM CDT): Rate controlled and s/p Watchman due to prior GIB. - coreg was held on last admission 2/2 low BP, CTM Assessment & Plan (11/22/2024 1:43 PM CDT): Rate controlled and s/p Watchman due to prior GIB. - continue home coreg as below. Assessment & Plan (11/21/2024 3:39 PM CDT): Rate controlled and s/p Watchman due to prior GIB. - continue home coreg as below Assessment & Plan (08/28/2024 1:03 PM FRAUD REPRESENTATIVE): Follows with [facility] cardiology. Rate controlled and s/p Watchman due to prior severe GIB Recently stopped coreg due to bradycardia ASA and plavix to start per IR recs post revascularization Assessment & Plan (07/24/2018 9:29 AM FRAUD REPRESENTATIVE): Continue coreg. S/p Watchmann DAVIDA occluder implant for future deescalate anticoagulation. Continue apixiban for now as per EP. Post procedure CXR. 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 PAD (peripheral artery disease) 03/15/2018 Overview (03/15/2018): Added automatically from request for surgery [id number] Assessment & Plan (03/20/2025 3:52 PM CDT): Angiogram with occlusion of the AT, PT, and peroneal s/p successful revascularization on november 2024 which failed to c/w medical tt ( ASA+ Plavix) 2/2 bleeding -Repeat revascularization with IR /11 -given ASA/Brilinta post operatively, continue at discharge -Cont statin Assessment & Plan (03/19/2025 4:59 PM CDT): Angiogram with occlusion of the AT, PT, and peroneal s/p successful revascularization on november 2024 which failed to c/w medical tt ( ASA+ Plavix) 2/2 bleeding -Repeat revascularization with IR 9/11 -given ASA/Brilinta post operatively, awaiting additional recs from IR team -Cont statin Assessment & Plan (03/18/2025 4:40 PM CDT): - Angiogram with occlusion of the AT, PT, and peroneal s/p successful revascularization on november 2024. - failed to c/w medical tt ( ASA+ Plavix) 2/2 bleeding Plan : Repeat revascularization tmw with IR 9/11 Labs ordered NPO @MN Assessment & Plan (11/22/2024 1:43 PM CDT): [...] (03/15/2018): Added automatically from request for surgery [id number] Ischemia of foot 03/15/2018 Overview (03/15/2018): Added automatically from request for surgery [id number] Noncompliance 02/24/2018 HTN (hypertension) 11/10/2017 Assessment & Plan (03/20/2025 3:52 PM CDT): lisinopril and coreg were held on November 07 low BP -CTM and resume if needed Assessment & Plan (03/19/2025 4:59 PM CDT): lisinopril and coreg were held on November 07 low BP -CTM and resume if needed Assessment & Plan (03/18/2025 4:40 PM CDT): lisinopril and coreg were held on November 07 low BP CTM and resume if needed Assessment & Plan (11/22/2024 1:43 PM CDT): On lisinopril and coreg at home, holding today for lower BP. Resume as able. Assessment & Plan (11/21/2024 3:03 PM CDT): Continue home lisinopril and coreg Assessment & Plan (07/24/2018 9:27 AM FRAUD REPRESENTATIVE): Continue home meds and dialysis. Hyperlipidemia associated with type 2 diabetes [place] 11/10/2017 ESRD (end stage renal disease) on dialysis 11/10 Assessment & Plan (03/20/2025 3:52 PM CDT): Patient on HD MWF. Received Dialysis on Friday 03/16 as well as 03/19 - per IR ok to use RUE fistula, nephrology consulted for iHD while hospitalized - dose meds to GFR Assessment & Plan (03/19/2025 4:59 PM CDT): Patient on HD MWF. Received Dialysis on Friday 03/16 as well as 03/19 - per IR ok to use RUE fistula, nephrology consulted for iHD while hospitalized - dose meds to GFR Assessment & Plan (03/18/2025 4:40 PM CDT): Patient on HD MWF - Received Dialysis on Friday 03/16 - per IR ok to use RUE fistula, nephrology consulted - dose meds to GFR Assessment & Plan (11/22/2024 1:43 PM CDT): Patient on HD MWF - Received Dialysis today on 11/22. Resume outpatient schedule. Assessment & Plan (11/21/2024 3:03 PM CDT): Patient on HD MWF - nephrology consult for dialysis today Assessment & Plan (08/29/2024 4:04 PM FRAUD REPRESENTATIVE): Routine M/W/F r brachial fistula (has required multiple dilations last at [facility] 07/2024 Feeling well post procedure denies dyspnea. Renal consulted for HD prior to discharge Assessment & Plan (07/24/2018 9:26 AM FRAUD REPRESENTATIVE): HD as per renal consult. Resume outpt [...] often do you attend chur ch or episcopalian services? 1 to 4 times per year 09/04/2019 Do you belong to any clubs o r organizations such as christianity groups, unions, fraternal or athletic groups, or [...] making you feel afraid or unsafe? Denies 03/18/2025 Comments No Sex and Gender Information Value Date Recorded Sex Assigned at Not on file Legal Sex Female 12:39 PM FRAUD REPRESENTATIVE Gender Identity Not on file Sexual Orientation Not on file Last Filed Vital Signs Vital Sign Reading Time Taken Comments Blood Pressure 151/51 03/20/2025 12:20 PM CDT Pulse 76 03/20/2025 12:20 PM CDT Temperature 36.4 C (97.6 F) 03/20/2025 12:20 PM CDT Respiratory Rate 18 03/20/2025 12:2 0 PM CDT Oxygen Saturation 92% 03/20/2025 12: 20 PM CDT Inhaled Oxygen Concentration - - Weight 50.8 kg (111 lb 14.4 oz) 03/20/2025 5:15 AM CDT Height 142.2 cm (4' 8) 03/19/2025 12:0 2 PM CDT Body Mass Index 25.09 03/19/2025 12:02 PM CDT Results * POCT glucose (03/20/2025 12:23 PM CDT) Glucose, POC 80 70 - 199 mg/dL Blood 03/20/2025 12:2 3 PM CDT 03/20/2025 12:23 PM CDT us Lew Brooke MD LAB POCT ORDERABLES - DEVICE Final Result Performing Organization Address City/[facility] Co de Phone Number [facility] Department [place] [address] * (ABNORMAL) eGFR (03/19/2025 8:25 PM CDT) eGFR 20(L) >=60 mL/min/1. 73 m2 Comment: Interpretive Data [...] interpretive data was last reviewed 2021. Blood 03/19/2025 8:25 PM CDT 03/19/2025 8:36 PM CDT us Claudia Nicole NP LAB BLOOD ORDERABLES Fin al Result Performing Organization Address City/[facility]/ZIP Co de Phone Number GUILLERMINA [facility] Department [place] [address] * (ABNORMAL) Differential, auto (03/19/2025 8:25 PM CDT) Neutrophil abs 5.34 1.50 - 6.50 K/cumm Imm gran abs 0.02 0.00 - 0.10 K/cumm [facility] Lymphocyte abs 0.56(L) 0.80 - 3.30 K/cumm [facility] Monocyte abs 0.53 0.20 - 0.80 K/cumm [facility] Eosinophil abs 0.03 0.00 - 0.50 K/cumm [facility] Basophil abs 0.03 0.00 - 0.10 K/cumm [facility] Neutrophil pct 82.0 % [facility] Comment: Interpretive Data Percent cell count reference ranges are not reported, since discordance with absolute values may lead to misinterpretation of CBC data. Current Interpretive Data was last revised on 2017. Imm gran pct 0.3 % [facility] Comment: Interpretive Data Percent cell count reference ranges are not reported, since discordance with absolute values may lead to misinterpretation of CBC data. Current Interpretive Data was last revised on 2017. Lymphocyte pct 8.6 % [facility] Comment: Interpretive Data Percent cell count reference ranges are not reported, since discordance with absolute values may lead to misinterpretation of CBC data. Current Interpretive Data was last revised on 2017. Monocyte pct 8.1 % [facility] Comment: Interpretive Data Percent cell count reference ranges are not reported, since discordance with absolute values may lead to misinterpretation of CBC data. Current Interpretive Data was last revised on 2017. Eosinophil pct 0.5 % [facility] Comment: Interpretive Data Percent cell count reference ranges are not reported, since discordance with absolute values may lead to misinterpretation of CBC data. Current Interpretive Data was last revised on 2017. Basophil pct 0.5 % [facility] Comment: Interpretive Data Percent cell count reference ranges are not reported, since discordance with absolute values may lead to misinterpretation of CBC data. Current Interpretive Data was last revised on 2017. Blood 03/19/2025 8:25 PM CDT 03/19/2025 8:36 PM CDT us Claudia Nicole [employer] LAB BLOOD ORDERABLES Fin al Result [facility] Department [place] [address] * (ABNORMAL) CBC with auto differential (03/19/2025 8:25 PM CDT) [facility] WBC 6.51 3.80 - 9.90 K/cumm Hgb 8.2(L) 11.9 - 15.5 g/dL [facility] Hct 26.9(L) 35.6 - 45.5 % [facility] Plt 111(L) 150 - 400 K/cumm [facility] MPV 11.6 9.1 - 12.3 fL [facility] RBC 2.63(L) 3.90 - 5.20 M/cumm [facility] MCV 102.3(H) 81.3 - 96.4 fL [facility] MCH 31.2 27.1 - 33.3 pg [facility] MCHC 30.5(L) 32.3 - 35.7 g/dL [facility] RDW CV 15.6(H) 11.1 - 14.9 % [facility] RDW SD 58.1(H) 35.7 - 48.1 fL [facility] NRBC abs 0.00 0.00 - 0.01 K/cumm [facility] Blood 03/19/2025 8:25 PM CDT 03/19/2025 8:36 PM CDT Claudia Nicole NP LAB BLOOD ORDERABLES Fin al Result [facility] Department [place] [address] * (ABNORMAL) Basic metabolic panel (03/19/2025 8:25 PM CDT) [facility] Sodium 135 135 - 145 mmol/L Potassium, pl 4.1 3.3 - 4.9 mmol/L [facility] Chloride 94(L) 97 - 110 mmol/L [facility] CO2 28 22 - 32 mmol/L [facility] Anion gap 13 2 - 15 mmol/L [facility] BUN 15 6 - 25 mg/dL [facility] Creatinine 2.38(H) 0.60 - 1.10 mg/dL [facility] Glucose 137 70 - 199 mg/dL [facility] Comment: Interpretive Data Fasting glucose >/= [...] interpretive data was last revised 2022. Calcium 8.7 8.5 - 10.3 mg/dL [facility] Blood 03/19/2025 8:25 PM CDT 03/19/2025 8:36 PM CDT Claudia Nicole NP LAB BLOOD ORDERABLES Fin al Result [facility] Department [place] [place] [address] * POCT glucose (03/19/2025 7:48 PM CDT) Glucose, POC 140 70 - 199 mg/dL Blood 03/19/2025 7:48 PM CDT 03/19/2025 7:48 PM CDT us Lew Brooke MD LAB POCT ORDERABLES - DEVICE Final Result [facility] [place] [place] [address] * POCT glucose (03/19/2025 5:45 PM CDT) Glucose, POC 137 70 - 199 mg/dL Blood 03/19/2025 5:45 PM CDT 03/19/2025 5:45 PM CDT us Lew Brooke MD LAB POCT ORDERABLES - DEVICE Final Result Performing Organization Address [facility] Co de Phone Number [facility] [place] [address] * (ABNORMAL) POCT Activated clotting time, low range (03/19/2025 2:50 PM CDT) ACT 290(H) 123 - 168 sec POC Device Number [id number] [facility] Blood 03/19/2025 2:50 PM CDT 03/19/2025 2:50 PM CDT us Lew Brooke MD LAB POCT ORDERABLES - DEVICE Final Result Performing Organization Address [facility] [place] [address] * (ABNORMAL) POCT Activated clotting time, low range (03/19/2025 1:56 PM CDT) ACT 348(H) 123 - 168 sec POC Device Number [id number] [facility] Blood 03/19/2025 1:56 PM CDT 03/19/2025 1:56 PM CDT us Lew Brooke MD LAB POCT ORDERABLES - DEVICE Final Result Performing Organization Address [facility] Co de Phone Number [facility] [place] [address] * IR Angiogram Lower Extremity Right (03/19/2025 12:37 PM CDT) Anatomical Region Laterality Modality Extremity Right X-Ray Angiograph y 03/19/2025 7:09 PM CDT Impressions 03/20/2025 7:24 AM CDT Successful revascularization of the dorsalis pedis, lateral plantar artery, anterior tibial artery, and posterior tibial artery PLAN: The patient will 180 mg Brilinta and 81 mg aspirin. They will begin a regimen of 90 mg Brilinta and 81 mg aspirin daily. They will return in 1 month for right lower extremity angiography with plans for peroneal artery revascularization. Dictated by: Gregory Wright M.D. The radiology attending physician has personally reviewed this study, and had reviewed and/or edited this written report and agrees with it. Electronically signed by: Anthony Gorman M.D. Narrative 03/20/2025 7:24 AM CDT EXAMINATION: RIGHT LOWER EXTREMITY ANGIOGRAM WITH REVASCULARIZATION PROCEDURES: 1. Ultrasound-guided antegrade right superficial femoral artery access. 2. Right lower extremity angiogram in stations down to the foot 3. Laser atherectomy of the posterior tibial and anterior tibial arteries 4. Balloon angioplasty of the anterior tibial artery, dorsalis pedis artery, and pedal loop 5. Balloon angioplasty of the posterior tibial artery and lateral plantar artery 6. Intravascular ultrasound evaluation of the SFA, popliteal artery, and TP trunk 7. Drug-eluting stent placement in the popliteal artery 8. Post intervention angiography 9. Angio-Seal closure device deployment HISTORY: 79 year old female with history of ESRD, DM, A fib, HTN, HLD, and PAD with a non healing right heel wound despite multiple revascularizations. She stopped taking ASA and Plavix due to prolonged bleeding after HD. Presents for angiogram and revascularization of the RLE ATTENDING PRESENCE: Anthony Gorman M.D., the attending radiologist was present from the beginning to the end of the procedure. SEDATION: Procedural sedation was administered under the attending physician's direction and continuous monitoring by a trained nurse specialist who was independent from those actually performing the procedure. Total monitored sedation time was 155 minutes. TECHNIQUE: The risks, benefits and alternatives were discussed and informed consent was obtained. Prior to beginning the procedure, [place] Protocol was performed to confirm the patient's [...] The right superficial femoral artery was punctured antegrade under real time ultrasound guidance. An image of the patent vessel was recorded. A 6Fr Brazilian sheath was placed and the right lower extremity angiogram was performed in stations to the foot A 6-Brazilian 45 cm sheath was advanced to the right superficial femoral artery. The 0.014 system was advanced into the anterior tibial artery. A 2nd 0.014 wire was then advanced into the posterior tibial artery. Angioplasty of the anterior tibial artery, dorsalis pedis, and pedal loop was performed with a 1.5 mm balloon. Repeat angiogram was performed. Laser atherectomy of the anterior tibial artery was then performed with a 1.5 mm Auryon laser and repeat angiography was performed. Balloon angioplasty of the posterior tibial artery was performed using a 1.5 mm balloon. Laser atherectomy of the posterior tibial artery was then performed with a 1.5 mm Auryon laser. Repeat angiography was performed. Balloon angioplasty of the posterior tibial artery was then performed with a 2.5 mm balloon, followed by balloon angioplasty of the anterior tibial artery using a 3 mm balloon in stations. This was followed by balloon angioplasty of the dorsalis pedis artery and pedal loop using a 2 mm balloon. Repeat angiography was performed. Balloon angioplasty was then performed of the posterior tibial artery and lateral plantar artery using a 2 mm balloon Intravascular ultrasound evaluation of the superficial femoral artery, popliteal artery, and TP trunk was then performed. After identifying a moderate stenosis of the popliteal artery, a 5 mm Zilver PTX stent was deployed in the popliteal artery and then profiled using a 5 mm balloon. A completion angiogram was performed. After completion of revascularization, a limited common femoral artery angiogram was performed to confirm satisfactory position of arterial puncture site. Angioseal device was deployed under ultrasound guidance to accomplish successful closure of the arteriotomy. A sterile dressing was applied. ESTIMATED BLOOD LOSS: minimal. CONDITION: Stable DISCHARGED TO: patient care division. FINDINGS: Ultrasound evaluation of the right common femoral artery demonstrates a patent vessel with diffuse atherosclerotic calcifications. Initial angiogram of the extremity demonstrates a patent superficial femoral artery without significant stenoses. Moderate stenosis of the popliteal artery, confirmed with intravascular ultrasound. There is occlusion of the proximal anterior tibial artery, proximal peroneal artery, and proximal posterior tibial artery. 0 vessel runoff to the right foot. After intervention, the angiogram demonstrates resolution of the popliteal stenosis after balloon angioplasty and drug-eluting stent placement. The anterior tibial and posterior tibial arteries are now patent without significant stenoses. Two-vessel runoff to the foot via the anterior and posterior tibial arteries. Note of sluggish blood flow in the posterior tibial artery compared to the anterior tibial artery. Procedure Note Anthony Gorman MD - 03/20/2025 EXAMINATION: RIGHT LOWER EXTREMITY ANGIOGRAM WITH REVASCULARIZATION PROCEDURES: 1. Ultrasound-guided antegrade right superficial femoral artery access. 2. Right lower extremity angiogram in stations down to the foot 3. Laser atherectomy of the posterior tibial and anterior tibial arteries 4. Balloon angioplasty of the anterior tibial artery, dorsalis pedis artery, and pedal loop 5. Balloon angioplasty of the posterior tibial artery and lateral plantar artery 6. Intravascular ultrasound evaluation of the SFA, popliteal artery, and TP trunk 7. Drug-eluting stent placement in the popliteal artery 8. Post intervention angiography 9. Angio-Seal closure device deployment HISTORY: 79 year old female with history of ESRD, DM, A fib, HTN, HLD, and PAD with a non healing right heel wound despite multiple revascularizations. She stopped taking ASA and Plavix due to prolonged bleeding after HD. Presents for angiogram and revascularization of the RLE ATTENDING PRESENCE: Anthony Gorman M.D., the attending radiologist was present from the beginning to the end of the procedure. SEDATION: Procedural sedation was administered under the attending physician's direction and continuous monitoring by a trained nurse specialist who was independent from those actually performing the procedure. Total monitored sedation time was 155 minutes. TECHNIQUE: The risks, benefits and alternatives were discussed and informed consent was obtained. Prior to beginning the procedure, [place] Protocol was performed to confirm the patient's [...] The right superficial femoral artery was punctured antegrade under real time ultrasound guidance. An image of the patent vessel was recorded. A 6Fr Brazilian sheath was placed and the right lower extremity angiogram was performed in stations to the foot A 6-Brazilian 45 cm sheath was advanced to the right superficial femoral artery. The 0.014 system was advanced into the anterior tibial artery. A 2nd 0.014 wire was then advanced into the posterior tibial artery. Angioplasty of the anterior tibial artery, dorsalis pedis, and pedal loop was performed with a 1.5 mm balloon. Repeat angiogram was performed. Laser atherectomy of the anterior tibial artery was then performed with a 1.5 mm Auryon laser and repeat angiography was performed. Balloon angioplasty of the posterior tibial artery was performed using a 1.5 mm balloon. Laser atherectomy of the posterior tibial artery was then performed with a 1.5 mm Auryon laser. Repeat angiography was performed. Balloon angioplasty of the posterior tibial artery was then performed with a 2.5 mm balloon, followed by balloon angioplasty of the anterior tibial artery using a 3 mm balloon in stations. This was followed by balloon angioplasty of the dorsalis pedis artery and pedal loop using a 2 mm balloon. Repeat angiography was performed. Balloon angioplasty was then performed of the posterior tibial artery and lateral plantar artery using a 2 mm balloon Intravascular ultrasound evaluation of the superficial femoral artery, popliteal artery, and TP trunk was then performed. After identifying a moderate stenosis of the popliteal artery, a 5 mm Zilver PTX stent was deployed in the popliteal artery and then profiled using a 5 mm balloon. A completion angiogram was performed. After completion of revascularization, a limited common femoral artery angiogram was performed to confirm satisfactory position of arterial puncture site. Angioseal device was deployed under ultrasound guidance to accomplish successful closure of the arteriotomy. A sterile dressing was applied. ESTIMATED BLOOD LOSS: minimal. CONDITION: Stable DISCHARGED TO: patient care division. FINDINGS: Ultrasound evaluation of the right common femoral artery demonstrates a patent vessel with diffuse atherosclerotic calcifications. Initial angiogram of the extremity demonstrates a patent superficial femoral artery without significant stenoses. Moderate stenosis of the popliteal artery, confirmed with intravascular ultrasound. There is occlusion of the proximal anterior tibial artery, proximal peroneal artery, and proximal posterior tibial artery. 0 vessel runoff to the right foot. After intervention, the angiogram demonstrates resolution of the popliteal stenosis after balloon angioplasty and drug-eluting stent placement. The anterior tibial and posterior tibial arteries are now patent without significant stenoses. Two-vessel runoff to the foot via the anterior and posterior tibial arteries. Note of sluggish blood flow in the posterior tibial artery compared to the anterior tibial artery. IMPRESSION: Successful revascularization of the dorsalis pedis, lateral plantar artery, anterior tibial artery, and posterior tibial artery PLAN: The patient will 180 mg Brilinta and 81 mg aspirin. They will begin a regimen of 90 mg Brilinta and 81 mg aspirin daily. They will return in 1 month for right lower extremity angiography with plans for peroneal artery revascularization. Dictated by: Gregory Wright M.D. The radiology attending physician has personally reviewed this study, and had reviewed and/or edited this written report and agrees with it. Electronically signed by: Anthony Gorman M.D. us Anthony Gorman MD IMG IR PROCEDURES Final Result * POCT glucose (03/19/2025 7:47 AM CDT) Glucose, POC 155 70 - 199 mg/dL Blood 03/19/2025 7:47 AM CDT 03/19/2025 7:47 AM CDT Lew Brooke MD LAB POCT ORDERABLES - DEVICE Final Result Performing Organization Address City/[facility]/ZIP Co de Phone Number [facility] Department [place] [address] * Hepatitis B Surface Antigen Blood (03/19/2025 7:26 AM CDT) [facility] HepBsAg Nonreactive Nonreactive Blood 03/19/2025 7:26 AM CDT 03/19/2025 7:52 AM CDT us Satya Brooke MD LAB MICROBIOLOGY - GEN ERAL ORDERABLES Final Result Performing Organization Address City/[facility]/ZIP Co de Phone Number [facility] Department [place] [address] * (ABNORMAL) eGFR (03/18/2025 8:29 PM CDT) [facility] eGFR 8(L) >=60 mL/min/1. 73 m2 Comment: [...] interpretive data was last reviewed 2021. Blood 03/18/2025 8:29 PM CDT 03/18/2025 9:00 PM CDT us Layton Johnson MD LAB BLOOD ORDERA BLES Final Result [facility] [place] [address] * Differential, auto (03/18/2025 8:29 PM CDT) [facility] Neutrophil abs 2.87 1.50 - 6.50 K/cumm Imm gran abs 0.01 0.00 - 0.10 K/cumm [facility] Lymphocyte abs 1.21 0.80 - 3.30 K/cumm [facility] Monocyte abs 0.50 0.20 - 0.80 K/cumm [facility] Eosinophil abs 0.07 0.00 - 0.50 K/cumm [facility] Basophil abs 0.03 0.00 - 0.10 K/cumm [facility] Neutrophil pct 61.2 % [facility] Comment: Interpretive Data Percent cell count reference ranges are not reported, since discordance with absolute values may lead to misinterpretation of CBC data. Current Interpretive Data was last revised on 2017. Imm gran pct 0.2 % [facility] Comment: Interpretive Data Percent cell count reference ranges are not reported, since discordance with absolute values may lead to misinterpretation of CBC data. Current Interpretive Data was last revised on 2017. Lymphocyte pct 25.8 % [facility] Comment: Interpretive Data Percent cell count reference ranges are not reported, since discordance with absolute values may lead to misinterpretation of CBC data. Current Interpretive Data was last revised on 2017. Monocyte pct 10.7 % [facility] Comment: Interpretive Data Percent cell count reference ranges are not reported, since discordance with absolute values may lead to misinterpretation of CBC data. Current Interpretive Data was last revised on 2017. Eosinophil pct 1.5 % [facility] Comment: Interpretive Data Percent cell count reference ranges are not reported, since discordance with absolute values may lead to misinterpretation of CBC data. Current Interpretive Data was last revised on 2017. Basophil pct 0.6 % [facility] Comment: Interpretive Data Percent cell count reference ranges are not reported, since discordance with absolute values may lead to misinterpretation of CBC data. Current Interpretive Data was last revised on 2017. Blood 03/18/2025 8:29 PM CDT 03/18/2025 9:01 PM CDT Layton Johnson MD LAB BLOOD ORDERA BLES Final Result [facility] Department [place] [address] * (ABNORMAL) CBC with auto differential (03/18/2025 8:29 PM CDT) WBC 4.69 3.80 - 9.90 K/cumm Hgb 7.0(L) 11.9 - 15.5 g/dL [facility] Hct 23.3(L) 35.6 - 45.5 % [facility] Plt 103(L) 150 - 400 K/cumm [facility] MPV 12.6(H) 9.1 - 12.3 fL [facility] RBC 2.27(L) 3.90 - 5.20 M/cumm [facility] MCV 102.6(H) 81.3 - 96.4 fL [facility] MCH 30.8 27.1 - 33.3 pg [facility] MCHC 30.0(L) 32.3 - 35.7 g/dL [facility] RDW CV 15.7(H) 11.1 - 14.9 % [facility] RDW SD 59.2(H) 35.7 - 48.1 fL [facility] NRBC abs 0.00 0.00 - 0.01 K/cumm [facility] Blood 03/18/2025 8:29 PM CDT 03/18/2025 9:01 PM CDT Layton Johnson MD LAB BLOOD ORDERA BLES Final Result [facility] Department [place] [address] * (ABNORMAL) Phosphorus (03/18/2025 8:29 PM CDT) Phosphorus, pl 5.6(H) 2.3 - 4.5 mg/dL Blood 03/18/2025 8:29 PM CDT 03/18/2025 8:55 PM CDT Layton Johnson MD LAB BLOOD ORDERA BLES Final Result [facility] Department [place] [place] [address] * Magnesium (03/18/2025 8:29 PM CDT) Magnesium 2.4 1.4 - 2.5 mg/dL Blood 03/18/2025 8:29 PM CDT 03/18/2025 8:55 PM CDT Layton Johnson MD LAB BLOOD ORDERA BLES Final Result [facility] Department [place] [address] * (ABNORMAL) Comprehensive metabolic panel (03/18/2025 8:29 PM CDT) [facility] Sodium 137 135 - 145 mmol/L Potassium, pl 4.9 3.3 - 4.9 mmol/L [facility] Chloride 96(L) 97 - 110 mmol/L [facility] CO2 31 22 - 32 mmol/L [facility] Anion gap 10 2 - 15 mmol/L [facility] BUN 46(H) 6 - 25 mg/dL [facility] Creatinine 5.22(H) 0.60 - 1.10 mg/dL [facility] Glucose 242(H) 70 - 199 mg/dL [facility] Comment: Interpretive Data Fasting glucose >/= [...] interpretive data was last revised 2022. Calcium 10.4(H) 8.5 - 10.3 mg/dL [facility] Bilirubin, total 0.3 0.1 - 1.2 mg/dL [facility] Protein, pl 5.5(L) 6.5 - 8.5 g/dL [facility] Albumin 3.2(L) 3.5 - 5.0 g/dL [facility] Alk phos 126 40 - 130 Units/L [facility] ALT 22 7 - 45 Units/L [facility] AST 30 10 - 45 Units/L [facility] Blood 03/18/2025 8:29 PM CDT 03/18/2025 8:55 PM CDT Layton Johnson MD LAB BLOOD ORDERA BLES Final Result Performing Organization Address [facility] Co de Phone Number [facility] [place] [address] * (ABNORMAL) POCT glucose (03/18/2025 7:52 PM CDT) Glucose, POC 280(H) 70 - 199 mg/dL Blood 03/18/2025 7:52 PM CDT 03/18/2025 7:52 PM CDT Layton Johnson MD LAB POCT ORDERAB LES - DEVICE Final Result Performing Organization Address [facility] Co de Phone Number [facility] [place] [employer] [place] [address] * POCT glucose (03/18/2025 4:29 PM CDT) Glucose, POC 128 70 - 199 mg/dL Blood 03/18/2025 4:29 PM CDT 03/18/2025 4:29 PM CDT Layton Johnson MD LAB POCT ORDERAB LES - DEVICE Final Result Performing Organization Address [facility] Co de Phone Number [facility] [place] [place] [address] * IR Dialysis Fgram W RADAR ENGINEER Peripheral Segment (03/18/2025 1:58 PM CDT) Anatomical Region Laterality Modality N/A X-Ray Angiograph y 03/18/2025 4:40 PM CDT Impressions 03/19/2025 4:39 PM CDT Stenosis of the outflow vein just peripheral to the mid-cephalic stent, as well as in-stent restenosis of the right innominate venous stent status post successful venoplasty. Juxtaanstomotic stenosis not addressed at this time due to reported adequate dialysis flow. Attention on clinic follow up. PLAN: The sutures are absorbable and do not need to be removed. Flow within the dialysis access should be monitored and used to guide decisions about the need for repeat intervention Dictated by: Scotty Jay M.D. The radiology attending physician has personally reviewed this study, and had reviewed and/or edited this written report and agrees with it. Electronically signed by: Ar Aj M.D. Narrative 03/19/2025 4:39 PM CDT EXAMINATION: DIALYSIS FISTULAGRAM AND ANGIOPLASTY HISTORY/INDICATION: 79-year-old female with history of end stage renal disease on hemodialysis with prolonged bleeding after hemodialysis. ATTENDING PRESENCE: Ar Aj M.D., the attending radiologist, was present from the beginning to the end of the procedure. Dr. Scotty Jay M.D. (vice president digital strategist) was present and participated in the procedure. SEDATION: Procedural sedation was administered under the attending physician's direction and continuous monitoring by a trained nurse specialist who was independent from those actually performing the procedure. Total monitored sedation time was 60 minutes. TECHNIQUE: The risks, benefits and alternatives were discussed and informed consent was obtained. Prior to beginning the procedure, [place] Protocol was performed to confirm the patient's identity and the planned procedure. The fluoroscopy time has been recorded in the electronic medical record. Maximum sterile barriers including cap, mask, hand hygiene, sterile gloves, sterile gown, large sterile drape and 2% chlorhexidine for cutaneous antisepsis were used. The skin over the right upper arm dialysis fistula was infiltrated with 1% lidocaine. The graft was examined with ultrasound and an image of the patent vein was recorded. Using realtime ultrasound guidance a needle was advanced into the graft followed by placement of a 5 english catheter. Fluoroscopy was used for all catheter and guidewire manipulations. Multiple DSA images were obtained to visualize the dialysis access from the arterial anastomosis through the vena cava. After identifying a stenosis a 6-Brazilian sheath was placed. The patient was given 3000 units of heparin intravenously. The stenosis of the venous anastomosis outflow vein just distal to the mid cephalic stent was dilated at multiple stations using a 6 x 40 mm conquest high pressure balloon. Repeat venography was performed. Additionally, there is a focal area of in stent restenosis within the right innominate vein stent, which was dilated using a 8 mm x 40 mm Nottingham high-pressure balloon. At the end of the procedure, a purse string suture was placed around the entry site and hemostasis was achieved. ESTIMATED BLOOD LOSS: Minimal. CONDITION: Stable DISCHARGED TO: home. FINDINGS: Images of the dialysis access show significant stenosis of the outflow vein within the left upper arm just peripheral to the mid cephalic vein stent. Additionally, there was mild-moderate in-stent restenosis of the right innominate vein stent. While the balloon was inflated, contrast was administered and demonstrated multifocal juxta-anastamotic stenoses (image 21). Post angioplasty images show a good response with significantly improved caliber of the outflow vein within the left upper arm. There was also good response with improved caliver and flow within the left innominate vein stent. Procedure Note Ar Aj MD - 03/19/2025 EXAMINATION: DIALYSIS FISTULAGRAM AND ANGIOPLASTY HISTORY/INDICATION: 79-year-old female with history of end stage renal disease on hemodialysis with prolonged bleeding after hemodialysis. ATTENDING PRESENCE: Ar Aj M.D., the attending radiologist, was present from the beginning to the end of the procedure. Dr. Scotty Jay M.D. (vice president digital strategist) was present and participated in the procedure. SEDATION: Procedural sedation was administered under the attending physician's direction and continuous monitoring by a trained nurse specialist who was independent from those actually performing the procedure. Total monitored sedation time was 60 minutes. TECHNIQUE: The risks, benefits and alternatives were discussed and informed consent was obtained. Prior to beginning the procedure, [place] Protocol was performed to confirm the patient's identity and the planned procedure. The fluoroscopy time has been recorded in the electronic medical record. Maximum sterile barriers including cap, mask, hand hygiene, sterile gloves, sterile gown, large sterile drape and 2% chlorhexidine for cutaneous antisepsis were used. The skin over the right upper arm dialysis fistula was infiltrated with 1% lidocaine. The graft was examined with ultrasound and an image of the patent vein was recorded. Using realtime ultrasound guidance a needle was advanced into the graft followed by placement of a 5 english catheter. Fluoroscopy was used for all catheter and guidewire manipulations. Multiple DSA images were obtained to visualize the dialysis access from the arterial anastomosis through the vena cava. After identifying a stenosis a 6-Brazilian sheath was placed. The patient was given 3000 units of heparin intravenously. The stenosis of the venous anastomosis outflow vein just distal to the mid cephalic stent was dilated at multiple stations using a 6 x 40 mm conquest high pressure balloon. Repeat venography was performed. Additionally, there is a focal area of in stent restenosis within the right innominate vein stent, which was dilated using a 8 mm x 40 mm Nottingham high-pressure balloon. At the end of the procedure, a purse string suture was placed around the entry site and hemostasis was achieved. ESTIMATED BLOOD LOSS: Minimal. CONDITION: Stable DISCHARGED TO: home. FINDINGS: Images of the dialysis access show significant stenosis of the outflow vein within the left upper arm just peripheral to the mid cephalic vein stent. Additionally, there was mild-moderate in-stent restenosis of the right innominate vein stent. While the balloon was inflated, contrast was administered and demonstrated multifocal juxta-anastamotic stenoses (image 21). Post angioplasty images show a good response with significantly improved caliber of the outflow vein within the left upper arm. There was also good response with improved caliver and flow within the left innominate vein stent. IMPRESSION: Stenosis of the outflow vein just peripheral to the mid-cephalic stent, as well as in-stent restenosis of the right innominate venous stent status post successful venoplasty. Juxtaanstomotic stenosis not addressed at this time due to reported adequate dialysis flow. Attention on clinic follow up. PLAN: The sutures are absorbable and do not need to be removed. Flow within the dialysis access should be monitored and used to guide decisions about the need for repeat intervention Dictated by: Scotty Jay M.D. The radiology attending physician has personally reviewed this study, and had reviewed and/or edited this written report and agrees with it. Electronically signed by: Ar Aj M.D. Layton Johnson MD IM IR PROCEDURE S Final Result * (ABNORMAL) Lipid panel (11/21/2024 6:31 AM [...] revised on 2018. Triglycerides 90 <=149 mg/dL [facility] Comment: Interpretive [...] revised on 2018. HDL 35(L) >=40 mg/dL [facility] Comment: Interpretive [...] on 2018. LDL, calculated 46 <=129 mg/dL [facility] Comment: Interpretive [...] on 2024. Non-HDL Cholesterol 64 mg/dL [facility] Comment: Interpretive Data Ages < or [...] revised on 2018. Chol/HDL ratio 3 [facility] Blood 11/21/2024 6:31 AM CDT 11/21/2024 6:47 AM CDT us Anthony Gorman MD LAB BLOOD ORDERABLES Fi nal Result [facility] [address] [facility] Department [place] [address] * Hepatitis C antibody (08/19/2020 12:07 PM FRAUD REPRESENTATIVE) Hep C Ab Nonreactive Nonreactive [facility] Comment:Antibodies to HCV no t detected. Does NOT exclude the possibility of recent exposure to HCV. Blood specimen (specimen) 08/19/2020 12:07 PM FRAUD REPRESENTATIVE 08/19/2020 12:15 PM FRAUD REPRESENTATIVE Humza Trevizo MD LAB MICROB IOLOGY - GENERAL ORDERABLES Edited Result - Final Performing Organization Address [facility] de Phone Number [facility] [place] [place] [address] * (ABNORMAL) Hemoglobin A1c (09/04/2019 12:14 AM FRAUD REPRESENTATIVE) Hgb A1C 8.2(H) 4.0 - 5.6 % [facility] Estimated Average Glucose 189 mg/dL [facility] Comment: The ADA recommends reporting an estimated Average Glucose (eAG) with all Hemoglobin A1c results using the equation derived from a study of 507 normal and diabetic adults. Minority populations were underrepresented and children were not included. (Diabetes Care 31:3998-7082, 2008). The eAG is not equivalent to a fasting glucose. Blood specimen (specimen) 09/04/2019 12:14 AM FRAUD REPRESENTATIVE 09/04/2019 12:58 AM FRAUD REPRESENTATIVE us Brandin Pena MD LAB BLOOD ORDERABLES Final Result Performing Organization Address [facility] Co de Phone Number [facility] Department [place] [address] from Last 3 Months or Most Recently Relevant to Health Maintenance
--- OUTSIDE RECORDS SUMMARY | 2025-03-28 10:26 | XMS_ITS | Clinical Summary ---
Author Organization [facility] [address] Address [address] [place] [address] Care Team Providers Care Swim Coach Name Role Phone David Coppola MD Primary Care Provider [phone] Jacob Suarez MD Unavailable Ros Seay MD Unavailable [phone] Abdifatah Villa MD Unavailable Issa Clements MD Unavailable [phone] Allergies Active Allergy Reactions Criticality Noted [...] (100 mg total) by mouth nightly 09/14/19 Active vitamin B complex with C-folic acid [...] as needed (severe pain) 5 tablet 11/23/19 025 Discontinued(St op Taking at Discharge) aspirin 81 mg chewable tablet Take 1 tablet (81 mg total) by mouth daily 30 tablet 1 11/23/19 025 Discontinued(St op Taking at Discharge) atorvastatin (LIPITOR) 40 mg tabletIndicatio ns:PAD (peripheral artery disease) Take 1 tablet by mouth once daily 90 tablet 12/25/19 025 Discontinued clopidogreL (PLAVIX) 75 mg tablet [...] PPI Assessment & Plan (08/28/2024 1:08 PM DATA COMMUNICATIONS TECHNICIAN): History of peptic ulcer with GIB [...] 08/21/2020 Assessment & Plan (08/28/2024 1:05 PM DATA COMMUNICATIONS TECHNICIAN): Home regimen Januvia, tresiba 10 and Victoza. Reviewed PCP records noted hypoglycemia last hospital admit with basal insulins continued Will continue januvia and hold tresiba and victoza SSI Family history of ischemic h eart disease and other diseases of the circulatory system 11/27/2019 Critical limb ischemia of right lower extremity 10/14/2019 Overview (10/14/2019): Added automatically from request for surgery [id number] Assessment & Plan (03/20/2025 3:52 PM CDT): [...] with IR 03/19 -given ASA/Brilinta post operatively, awaiting additional recs [...] @[place] Assessment & Plan (08/28/2024 12:59 PM DATA COMMUNICATIONS TECHNICIAN): S/p uncomplicated balloon angioplasty of the [...] (10/14/2019): Added automatically from request for surgery [id number] Presence of Watchman left atrial appendage closu re device 08/29/2018 Atrial fibrillation 06/13/2018 Overview (06/13/2018): Added automatically from request for surgery [id number] Assessment & Plan (03/20/2025 3:52 PM CDT): [...] below Assessment & Plan (08/28/2024 1:03 PM DATA COMMUNICATIONS TECHNICIAN): Follows with [facility] cardiology. Rate controlled and s/p Watchman due to prior severe GIB Recently stopped coreg due to bradycardia ASA and plavix to start per IR recs post revascularization Assessment & Plan (07/24/2018 9:29 AM DATA COMMUNICATIONS TECHNICIAN): Continue coreg. S/p Watchmann DAVIDA occluder implant for future deescalate anticoagulation. Continue apixiban for now as per EP. Post procedure CXR. 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 PAD (peripheral artery disease) 03/15/2018 Overview (03/15/2018): Added automatically from request for surgery [id number] Assessment & Plan (03/20/2025 3:52 PM CDT): [...] with IR 03/19 -given ASA/Brilinta post operatively, awaiting additional recs [...] (03/15/2018): Added automatically from request for surgery [id number] Ischemia of foot 03/15/2018 Overview (03/15/2018): Added automatically from request for surgery [id number] Noncompliance 02/24/2018 HTN (hypertension) 11/10/2017 Assessment & [...] coreg Assessment & Plan (07/24/2018 9:27 AM DATA COMMUNICATIONS TECHNICIAN): Continue home meds and dialysis. Hyperlipidemia [...] today Assessment & Plan (08/29/2024 4:04 PM DATA COMMUNICATIONS TECHNICIAN): Routine M/W/F r brachial fistula (has required multiple dilations last at [facility] 07/2024 Feeling well post procedure denies dyspnea. Renal consulted for HD prior to discharge Assessment & Plan (07/24/2018 9:26 AM DATA COMMUNICATIONS TECHNICIAN): HD as per renal consult. Resume [...] Resolved Date Coronary artery disease invo lving yankton coronary artery of yankton heart without angina pectoris 03/07/2021 03/07/2021 Preoperative cardiovascular examination 03/07/2021 09/29/2022 Hypoxia 11/27/2019 04/03/2023 Toe ulcer, left, with unspecified severity 09/16/2018 03/07/2021 Overview (09/16/2018): Added automatically from request for surgery [id number] Cough 11/10/2017 03/07/2021 Lumbago 06/04/2017 03/07/2021 Pain of lower extremity 06/04/2017 09/2 12/2022 Chronic anticoagulation 08/22/2016 06/0 10/2018 Overview (10/12/2016): Chronic anticoagulation Stage 4 chronic kidney disease 04/21/2014 04/03/2023 Pain in joint 03/04/2014 04/03/2023 Paroxysmal atrial fibrillation 05/06/2024 ESRD (end stage renal disease) ([facility]) 03/07/2021 Pre-transplant evaluation fo r kidney transplant 04/03/2023 Encounters Date Type Department Care Team Description 03/18/2025 2:38 PM CDT - 03/20/2025 4:45 PM CDT Hospital Encounter [address] [address] Ar Aj MD Obeidat, MD Edwardo Umanzor Nathan R., MD Pinkerton, Robles Castillo MD ESRD (end stage renal disease) on dialysis ([facility]); Atherosclerosis of yankton artery of right lower extremity with other clinical manifestation; 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 ([facility]); PAD (peripheral artery disease) Discharge Disposition: Discharge to home or self care 03/18/2025 Orders Only [facility] [address] [place] [address] [phone] Pau Dos Santos RN 03/18/2025 Telephone [facility] [address] [place] [address] [id number] Yaritza Golden, ABENA 03/16/2025 [facility] [address] [place] [address] [phone] Yaritza Golden, ABENA 03/13/2025 Telephone [facility] [address] [place] [address] [phone] Luh Alvarez, ABENA 03/05/2025 [facility] [address] [place] [address] [phone] Alena Fontenot, ABENA 02/19/2025 Telephone [facility] [address] [place] [address] [phone] Claudia Florentino RN 02/19/2025 Orders Only [facility] [address] [place] [address] Claudia Florentino RN 02/19/2025 Telephone [facility] [address] [place] [address] Alena Fontenot, ABENA 02/19/2025 Orders Only [facility] [address] [place] [address] [phone] Alena Fontenot, ABENA Atherosclerosis of artery (Primary Dx) 02/16/2025 Telephone [facility] [address] [place] [phone] Alena Fontenot, ABENA 02/13/2025 Telephone [facility] [address] [place] [address] [phone] Alena Fontenot, ABENA 02/12/2025 4:00 PM CDT [facility], Interventional Radiology [address] [phone] Anthony Gorman MD Type 2 diabetes mellitus with diabetic peripheral angiopathy and gangrene, without long-term current use of insulin (HCC) (Primary Dx); Atrial fibrillation, permanent (HCC); Hyperlipidemia associated with type 2 diabetes mellitus (HCC); Critical limb ischemia of right lower extremity (HCC); Noncompliance; PAD (peripheral artery disease) 02/12/2025 Telephone [facility] [address] [place] [phone] Alena Fontenot, ABENA 01/13/2025 1:30 PM CDT Office Visit [facility] Cardiology at [address] [place] [address] David Rodriguez MD Atrial fibrillation, permanent (HCC) (Primary Dx) 01/06/2025 Orders Only [facility] [address] [place] [phone] Alena Fontenot, ABENA PAD (peripheral artery disease) (Primary Dx) 01/05/2025 Telephone [facility] [address] [place] [address] Alena Fontenot RN from Last 3 Months Immunizations Immunization [...] Hx Relation Name Status Comments Brother of DE age 48 Father of DE age 47 Mother Social History Tobacco Use [...] file Legal Sex Female 12:39 PM DATA COMMUNICATIONS TECHNICIAN Gender Identity Not on file Sexual [...] Mass Index 25.09 03/19/2025 12:02 PM CDT Plan of Treatment Scheduled Procedures Name Priority Associated Diagnoses Date/Ti me TRANSPLANT KIDNEY ESRD (end stage renal disease) (HCC) Health Maintenance Due Date Last Done Comments Albumin Creatinine Ratio, Urine 1945 Depression Screening 1945 Osteoporosis Screening-Bone Density Scan 1945 Dilated Eye Exam 1945 Foot Exam 1945 Well Visit 65+ 2011 Hemoglobin A1C 03/04/2020 09/04/2019, 04/10, 07/18/2018, Additional history exists Zoster Vaccine (2 of 2) 01/06/2022 11/11/2021 Influenza Vaccine (#1) 2025 , 05/02/2023, 04/21/2021, Additional history exists Lipid Panel 11/21/2025 11/21/2024, 08/10, 09/26/2022, Additional history exists eGFR 03/19/2026 03/19/2025, 03/09, 11/22/2024, Additional history exists Fall Risk Assessment 03/20/2026 03/20/2025, 09/17/19 19 DTaP/Tdap/Td Vaccine (2 - Td or Tdap) 03/06/2034 03/06/2024 Pneumococcal vaccine 65+ Completed 019, 04/09/2014, 02/19/2014 Hepatitis C Screening Completed 08/19/2020 , 09/04/2019, 05/08/2019 Medical Devices Implanted Type Area Fashion Buyer Device Identifier Shelf Expiration Date Model / Serial / Lot Device Clsr 27mm Davida Watchman - [id number] - [id number] Implanted:Qty : 1 on 07/23/2018 by Mike Mccloud MD PhD at [facility] Other - see comments Left: [employer] Breanna 12/13/2020 27MM-DAVIDA CLOSURE DEVICE / [id number] / [id number] Description:Left atrial appe ndage closure device Watchman Daig Breanna/[employer] [id number] Angio-Seal Vip Bondek-Plus 6fr .035in 70cm Hemostatic Latex Free - [id number] Implanted:Qty : 1 on 03/20/2018 by Abdifatah Villa MD at [facility] [employer] 12/06/2018 [id number] / / [id number] Device Davida Watchman Procedure - [id number] Implanted:Qty : 1 on 07/23/2018 by Mike Mccloud MD PhD at [facility] [employer] Breanna [id number] 1 - 3 PC / / Description:1 Device Daig Breanna/[employer] [id number] Angio-Seal Vip Bondek-Plus 6fr .035in 70cm Hemostatic Latex Free - [id number] Implanted:Qty : 1 on 09/26/2018 by Abdifatah Villa MD at [facility] [employer] 06/07/2019 [id number] / / [id number] Daig Breanna [id number] Device Closure Angio-Seal Vip Bondek-Plus Polyglyd L70 Cm Od6 Fr Odsec.035 In Vascular - [id number] Implanted:Qty : 1 on 10/16/2019 by Abdifatah Villa MD at [facility]/[employer] [id number] / / [employer] Device 6fr Closure Celt Acd Vascular Sterile Latex Free Disposable Flavio Kclt-06 - [id number] Implanted:Qty : 1 on 08/28/2024 at [facility] [employer] 01/01/2027 KCLT- / / [id number] [employer]Platform Angio-Seal Vip 6fr Closere Device [id number] - [id number] Implanted:Qty : 1 on 11/21/2024 at [facility] [employer] 03/26/2025 [id number] / / [id number] [employer] [facility] Stent Peripheral Over The Wire Zilver Ptx [id number] 25cm Nitinol [id number] - [id number] Implanted:Qty : 1 on 03/19/2025 at [facility] [employer] 12/16/2026 [id number] / / [id number] Procedures Procedure Name Priority Date/Time Associated Diagnosis [...] Routine) 03/19/2025 12:37 PM CDT Atherosclerosis of yankton artery of right lower extremity with other [...] 4 :29 PM CDT DIALYSIS FISTULAGRAM W INTERNET CAFE MANAGER PERIPHERAL SEGMENT Schedule Routine, Read Routine (OP Routine) 03/18/2025 1:58 PM CDT ESRD (end stage renal disease) on dialysis (HCC) LIPID PANEL Routine 11/21/2024 6:31 AM CDT PAD (peripheral artery disease) HEPATITIS C ANTIBODY Routine 08/19/2020 12:07 PM DATA COMMUNICATIONS TECHNICIAN ESRD (end stage renal disease) (HCC) HEMOGLOBIN A1C Routine 09/04/2019 12:14 AM DATA COMMUNICATIONS TECHNICIAN from Last 3 Months or Most Recently Relevant to Health Maintenance Results * POCT glucose (03/20/2025 12:23 PM CDT) Glucose, POC 80 70 - 199 mg/dL Blood 03/20/2025 12:2 3 PM CDT 03/20/2025 12:23 PM CDT us Lew Brooke MD LAB POCT ORDERABLES - DEVICE Final Result Performing Organization Address [facility] Co de Phone Number [facility] MC[facility]LLYResearch [facility] Department [place] [address] * (ABNORMAL) eGFR (03/19/2025 8:25 PM CDT) Pathologist [facility] eGFR 20(L) >=60 mL/min/1. 73 m2 Comment: [...] 03/19/2025 8:36 PM CDT us Claudia Nicole SETUP OPERATOR LAB BLOOD ORDERABLES Fin al Result GUILLERMINA MCNALLY [facility] Department [place] [address] * (ABNORMAL) Differential, auto (03/19/2025 8:25 PM CDT) Pathologist [facility] Neutrophil abs 5.34 1.50 - 6.50 K/cumm Imm gran abs 0.02 0.00 - 0.10 K/cumm [facility] Lymphocyte abs 0.56(L) 0.80 - 3.30 K/cumm [facility] Monocyte abs 0.53 0.20 - 0.80 K/cumm [facility] Eosinophil abs 0.03 0.00 - 0.50 K/cumm [facility] Basophil abs 0.03 0.00 - 0.10 K/cumm [facility] Neutrophil pct 82.0 % [facility] Comment: Interpretive Data Percent cell count reference ranges are not reported, since discordance with absolute values may lead to misinterpretation of CBC data. Current Interpretive Data was last revised on 2017. Imm gran pct 0.3 % [facility] Comment: Interpretive Data Percent cell count reference ranges are not reported, since discordance with absolute values may lead to misinterpretation of CBC data. Current Interpretive Data was last revised on 2017. Lymphocyte pct 8.6 % [facility] Comment: Interpretive Data Percent cell count reference ranges are not reported, since discordance with absolute values may lead to misinterpretation of CBC data. Current Interpretive Data was last revised on 2017. Monocyte pct 8.1 % [facility] Comment: Interpretive Data Percent cell count reference ranges are not reported, since discordance with absolute values may lead to misinterpretation of CBC data. Current Interpretive Data was last revised on 2017. Eosinophil pct 0.5 % [facility] Comment: Interpretive Data Percent cell count reference ranges are not reported, since discordance with absolute values may lead to misinterpretation of CBC data. Current Interpretive Data was last revised on 2017. Basophil pct 0.5 % [facility] Comment: Interpretive Data Percent cell count reference ranges are not reported, since discordance with absolute values may lead to misinterpretation of CBC data. Current Interpretive Data was last revised on 2017. Blood 03/19/2025 8:25 PM CDT 03/19/2025 8:36 PM CDT us Claudia Nicole SETUP OPERATOR LAB BLOOD ORDERABLES Fin al Result [facility] Department [place] [address] * (ABNORMAL) CBC with auto differential (03/19/2025 8:25 PM CDT) [facility] WBC 6.51 3.80 - 9.90 K/cumm Hgb 8.2(L) 11.9 - 15.5 g/dL [facility] Hct 26.9(L) 35.6 - 45.5 % [facility] Plt 111(L) 150 - 400 K/cumm [facility] MPV 11.6 9.1 - 12.[address] [facility] RBC 2.63(L) 3.90 - 5.20 M/cumm [facility] MCV 102.3(H) 81.3 - 96.[address] [facility] MCH 31.2 27.1 - 33.[address] [facility] MCHC 30.5(L) 32.3 - 35.7 g/dL [facility] RDW CV 15.6(H) 11.1 - 14.9 % [facility] RDW SD 58.1(H) 35.7 - 48.[address] [facility] NRBC abs 0.00 0.00 - 0.01 K/cumm [facility] Blood 03/19/2025 8:25 PM CDT 03/19/2025 8:36 PM CDT Claudia Nicole NP LAB BLOOD ORDERABLES Fin al Result Performing Organization Address City/State/[facility] Co de Phone Number [facility] Department [place] [address] * (ABNORMAL) Basic metabolic panel (03/19/2025 8:25 PM CDT) [facility] Sodium 135 135 - 145 mmol/L Potassium, pl 4.1 3.3 - 4.9 mmol/L [facility] Chloride 94(L) 97 - 110 mmol/L [facility] CO2 28 22 - 32 mmol/L [facility] Anion gap 13 2 - 15 mmol/L [facility] BUN 15 6 - 25 mg/dL [facility] Creatinine 2.38(H) 0.60 - 1.10 mg/dL [facility] Glucose 137 70 - 199 mg/dL [facility] Comment: Interpretive Data Fasting glucose >/= [...] 2022. Calcium 8.7 8.5 - 10.3 mg/dL [facility] Blood 03/19/2025 8:25 PM CDT 03/19/2025 8:36 PM CDT Claudia Nicole NP LAB BLOOD ORDERABLES Fin al Result Performing Organization Address [facility]/ZIP Co de Phone Number [facility] [place] [address] * POCT glucose (03/19/2025 7:48 PM CDT) Glucose, POC 140 70 - 199 mg/dL Blood 03/19/2025 7:48 PM CDT 03/19/2025 7:48 PM CDT Lew Brooke MD LAB POCT ORDERABLES - DEVICE Final Result [facility] [place] [address] * POCT glucose (03/19/2025 5:45 PM CDT) Glucose, POC 137 70 - 199 mg/dL Blood 03/19/2025 5:45 PM CDT 03/19/2025 5:45 PM CDT Lew Brooke MD LAB POCT ORDERABLES - DEVICE Final Result Performing Organization Address [facility] Co de Phone Number [facility] [place] [place] [address] * (ABNORMAL) POCT Activated clotting time, low range (03/19/2025 2:50 PM CDT) ACT 290(H) 123 - 168 sec POC Device Number [id number] [facility] Blood 03/19/2025 2:50 PM CDT 03/19/2025 2:50 PM CDT us Lew Brooke MD LAB POCT ORDERABLES - DEVICE Final Result Performing Organization Address [facility] Co de Phone Number [facility] [place] [address] * (ABNORMAL) POCT Activated clotting time, low range (03/19/2025 1:56 PM CDT) ACT 348(H) 123 - 168 sec POC Device Number [id number] [facility] Blood 03/19/2025 1:56 PM CDT 03/19/2025 1:56 PM CDT us Lew Brooke MD LAB POCT ORDERABLES - DEVICE Final Result Performing Organization Address [facility] Co de Phone Number [facility] [place] [address] * IR Angiogram Lower Extremity Right (03/19/2025 [...] was obtained. Prior to beginning the procedure, Bigelow Protocol was performed to confirm the patient's [...] the patent vessel was recorded. A 6Fr Haitian sheath was placed and the right lower extremity angiogram was performed in stations to the foot A 6-Haitian 45 cm sheath was advanced to the [...] was obtained. Prior to beginning the procedure, Bigelow Protocol was performed to confirm the patient's [...] the patent vessel was recorded. A 6Fr Haitian sheath was placed and the right lower extremity angiogram was performed in stations to the foot A 6-Haitian 45 cm sheath was advanced to the [...] * POCT glucose (03/19/2025 7:47 AM CDT) [facility] Glucose, POC 155 70 - 199 mg/dL Blood 03/19/2025 7:47 AM CDT 03/19/2025 7:47 AM CDT us Lew Brooke MD LAB POCT ORDERABLES - DEVICE Final Result [facility] Department [place] [address] * Hepatitis B Surface Antigen Blood (03/19/2025 7:26 AM CDT) [facility] HepBsAg Nonreactive Nonreactive Blood 03/19/2025 7:26 AM CDT 03/19/2025 7:52 AM CDT Satya Brooke MD LAB MICROBIOLOGY - GEN ERAL ORDERABLES Final Result [facility] [place] [address] * (ABNORMAL) eGFR (03/18/2025 8:29 PM CDT) [facility] eGFR 8(L) >=60 mL/min/1. 73 m2 Comment: [...] MD LAB BLOOD ORDERA BLES Final Result [facility] Department [place] [address] * Differential, auto (03/18/2025 8:29 PM CDT) Pathologist [facility] Neutrophil abs 2.87 1.50 - 6.50 K/cumm Imm gran abs 0.01 0.00 - 0.10 K/cumm [facility] Lymphocyte abs 1.21 0.80 - 3.30 K/cumm [facility] Monocyte abs 0.50 0.20 - 0.80 K/cumm [facility] Eosinophil abs 0.07 0.00 - 0.50 K/cumm [facility] Basophil abs 0.03 0.00 - 0.10 K/cumm [facility] Neutrophil pct 61.2 % [facility] Comment: Interpretive Data Percent cell count reference ranges are not reported, since discordance with absolute values may lead to misinterpretation of CBC data. Current Interpretive Data was last revised on 2017. Imm gran pct 0.2 % [facility] Comment: Interpretive Data Percent cell count reference ranges are not reported, since discordance with absolute values may lead to misinterpretation of CBC data. Current Interpretive Data was last revised on 2017. Lymphocyte pct 25.8 % [facility] Comment: Interpretive Data Percent cell count reference ranges are not reported, since discordance with absolute values may lead to misinterpretation of CBC data. Current Interpretive Data was last revised on 2017. Monocyte pct 10.7 % [facility] Comment: Interpretive Data Percent cell count reference ranges are not reported, since discordance with absolute values may lead to misinterpretation of CBC data. Current Interpretive Data was last revised on 2017. Eosinophil pct 1.5 % [facility] Comment: Interpretive Data Percent cell count reference ranges are not reported, since discordance with absolute values may lead to misinterpretation of CBC data. Current Interpretive Data was last revised on 2017. Basophil pct 0.6 % [facility] Comment: Interpretive Data Percent cell count reference ranges are not reported, since discordance with absolute values may lead to misinterpretation of CBC data. Current Interpretive Data was last revised on 2017. Blood 03/18/2025 8:29 PM CDT 03/18/2025 9:01 PM CDT Layton Johnson MD LAB BLOOD ORDERA BLES Final Result [facility] Department [place] [address] * (ABNORMAL) CBC with auto differential (03/18/2025 8:29 PM CDT) WBC 4.69 3.80 - 9.90 K/cumm Hgb 7.0(L) 11.9 - 15.5 g/dL [facility] Hct 23.3(L) 35.6 - 45.5 % [facility] Plt 103(L) 150 - 400 K/cumm [facility] MPV 12.6(H) 9.1 - 12.[address] [facility] RBC 2.27(L) 3.90 - 5.20 M/cumm [facility] MCV 102.6(H) 81.3 - 96.[address] [facility] MCH 30.8 27.1 - 33.[address] [facility] MCHC 30.0(L) 32.3 - 35.7 g/dL [facility] RDW CV 15.7(H) 11.1 - 14.9 % [facility] RDW SD 59.2(H) 35.7 - 48.[address] [facility] NRBC abs 0.00 0.00 - 0.01 K/cumm [facility] Blood 03/18/2025 8:29 PM CDT 03/18/2025 9:01 PM CDT Layton Johnson MD LAB BLOOD ORDERA BLES Final Result [facility] Department [place] [address] * (ABNORMAL) Phosphorus (03/18/2025 8:29 PM CDT) Phosphorus, pl 5.6(H) 2.3 - 4.5 mg/dL Blood 03/18/2025 8:29 PM CDT 03/18/2025 8:55 PM CDT Layton Johnson MD LAB BLOOD ORDERA BLES Final Result [facility] [place] [address] * Magnesium (03/18/2025 8:29 PM CDT) Magnesium 2.4 1.4 - 2.5 mg/dL Blood 03/18/2025 8:29 PM CDT 03/18/2025 8:55 PM CDT us Layton Johnson MD LAB BLOOD ORDERA BLES Final Result [facility] Department [place] [address] * (ABNORMAL) Comprehensive metabolic panel (03/18/2025 8:29 PM CDT) Sodium 137 135 - 145 mmol/L Potassium, pl 4.9 3.3 - 4.9 mmol/L [facility] Chloride 96(L) 97 - 110 mmol/L [facility] CO2 31 22 - 32 mmol/L [facility] Anion gap 10 2 - 15 mmol/L [facility] BUN 46(H) 6 - 25 mg/dL [facility] Creatinine 5.22(H) 0.60 - 1.10 mg/dL [facility] Glucose 242(H) 70 - 199 mg/dL [facility] Comment: Interpretive Data Fasting glucose >/= 126 [...] 2022. Calcium 10.4(H) 8.5 - 10.3 mg/dL [facility] Bilirubin, total 0.3 0.1 - 1.2 mg/dL [facility] Protein, pl 5.5(L) 6.5 - 8.5 g/dL [facility] Albumin 3.2(L) 3.5 - 5.0 g/dL [facility] Alk phos 126 40 - 130 Units/L [facility] ALT 22 7 - 45 Units/L [facility] AST 30 10 - 45 Units/L [facility] Blood 03/18/2025 8:29 PM CDT 03/18/2025 8:55 PM CDT Layton Johnson MD LAB BLOOD ORDERA BLES Final Result Performing Organization Address [facility] de Phone Number [facility] [place] [address] * (ABNORMAL) POCT glucose (03/18/2025 7:52 PM CDT) Glucose, POC 280(H) 70 - 199 mg/dL Blood 03/18/2025 7:52 PM CDT 03/18/2025 7:52 PM CDT Layton Johnson MD LAB POCT ORDERAB LES - DEVICE Final Result Performing Organization Address [facility] Co de Phone Number [facility] [place] [address] * POCT glucose (03/18/2025 4:29 PM CDT) Glucose, POC 128 70 - 199 mg/dL Blood 03/18/2025 4:29 PM CDT 03/18/2025 4:29 PM CDT Layton Johnson MD LAB POCT ORDERAB LES - DEVICE Final Result Performing Organization Address [facility] [place] [address] * IR Dialysis Fgram W INTERNET CAFE MANAGER Peripheral Segment (03/18/2025 1:58 PM CDT) Anatomical [...] of the procedure. Dr. Scotty Jay M.D. (residential green building designer) was present and participated in the procedure. SEDATION: Procedural sedation was administered under the attending physician's direction and continuous monitoring by a trained nurse specialist who was independent from those actually performing the procedure. Total monitored sedation time was 60 minutes. TECHNIQUE: The risks, benefits and alternatives were discussed and informed consent was obtained. Prior to beginning the procedure, Bigelow Protocol was performed to confirm the patient's [...] graft followed by placement of a 5 mongolian catheter. Fluoroscopy was used for all catheter and guidewire manipulations. Multiple DSA images were obtained to visualize the dialysis access from the arterial anastomosis through the vena cava. After identifying a stenosis a 6-Haitian sheath was placed. The patient was given [...] using a 8 mm x 40 mm Dennison high-pressure balloon. At the end of the [...] of the procedure. Dr. Scotty Jay M.D. (residential green building designer) was present and participated in the procedure. SEDATION: Procedural sedation was administered under the attending physician's direction and continuous monitoring by a trained nurse specialist who was independent from those actually performing the procedure. Total monitored sedation time was 60 minutes. TECHNIQUE: The risks, benefits and alternatives were discussed and informed consent was obtained. Prior to beginning the procedure, Bigelow Protocol was performed to confirm the patient's [...] graft followed by placement of a 5 mongolian catheter. Fluoroscopy was used for all catheter and guidewire manipulations. Multiple DSA images were obtained to visualize the dialysis access from the arterial anastomosis through the vena cava. After identifying a stenosis a 6-Haitian sheath was placed. The patient was given [...] using a 8 mm x 40 mm Dennison high-pressure balloon. At the end of the [...] by: Ar Aj M.D. Layton Johnson MD IMG IR PROCEDURE S Final Result * (ABNORMAL) [...] 2018. Triglycerides 90 <=149 mg/dL [facility] Comment: Interpretive Data Ages < or [...] 2018. HDL 35(L) >=40 mg/dL [facility] Comment: Interpretive Data Ages < or [...] LDL, calculated 46 <=129 mg/dL [facility] Comment: Interpretive Data Ages < or [...] 2024. Non-HDL Cholesterol 64 mg/dL [facility] Comment: Interpretive Data Ages < or [...] on 2018. Chol/HDL ratio [address] [facility] Blood 11/21/2024 6:31 AM CDT 11/21/2024 6:47 AM CDT Anthony Gorman MD LAB BLOOD ORDERABLES Fi nal Result [facility] [place] [address] * Hepatitis C antibody (08/19/2020 12:07 PM DATA COMMUNICATIONS TECHNICIAN) Pathologist [facility] Hep C Ab Nonreactive Nonreactive [facility] Comment:Antibodies to HCV no t detected. Does NOT exclude the possibility of recent exposure to HCV. Blood specimen (specimen) 08/19/2020 12:07 PM DATA COMMUNICATIONS TECHNICIAN 08/19/2020 12:15 PM DATA COMMUNICATIONS TECHNICIAN us Humza Trevizo MD LAB MICROB IOLOGY - GENERAL ORDERABLES Edited Result - Final Performing Organization Address [facility] [place] [address] * (ABNORMAL) Hemoglobin A1c (09/04/2019 12:14 AM DATA COMMUNICATIONS TECHNICIAN) Hgb A1C 8.2(H) 4.0 - 5.6 % [facility] Estimated Average Glucose 189 mg/dL [facility] Comment: The ADA recommends reporting an estimated Average Glucose (eAG) with all Hemoglobin A1c results using the equation derived from a study of 507 normal and diabetic adults. Minority populations were underrepresented and children were not included. (Diabetes Care 31:6659-8942, 2008). The eAG is not equivalent to a fasting glucose. Blood specimen (specimen) 09/04/2019 12:14 AM DATA COMMUNICATIONS TECHNICIAN 09/04/2019 12:58 AM DATA COMMUNICATIONS TECHNICIAN us Brandin Pena MD LAB BLOOD ORDERABLES Final Result Performing Organization Address [facility] [place] [address] from Last 3 Months or Most Recently Relevant to Health Maintenance Insurance [facility] [place] [address] [facility] MEDICARE [employer] [facility] MEDICARE ADVANTAGE [facility] MEDICARE ADVANTAGE [employer] Advance Directives For more information, please contact: [phone] * Full Code (Latest Code Status on File) Date Activated Date Inactivated Comments 03/18/2025 9:18 AM 03/20/2025 8:51 PM * Full Code Date Activated Date Inactivated Comments 03/18/2025 8:56 AM 03/18/2025 9:18 AM * Full Code Date Activated Date Inactivated Comments 11/21/2024 7:27 AM 11/22/2024 8:58 PM * Full Code Date Activated Date Inactivated Comments 08/28/2024 6:35 AM 08/29/2024 9:01 PM * Full Code Date Activated Date Inactivated Comments 09/03/2019 11:07 PM 09/04/2019 6:57 PM Care Teams Swim Coach Relationship Specialty Start Date End Date David Coppola MD PCP - General Family Medicine 10/29/17 Jacob Suarez MD Referring Physician Nephrology 12/20/18 Ros Seay MD Client Executive Cardiology 03/05/19 Abdifatah Villa MD [address] [facility] [address] [facility] [address] [place] [address] Consulting Physician Cardiology 09/01/20 Issa Clements MD [address] [facility] [address] [place] [address] Referring Physician General Surgery 09/01/20
--- OUTSIDE RECORDS SUMMARY | 2025-03-28 10:26 | XMS_ITS | Clinical Summary ---
Author Organization [facility] Address [address] [place] [address] Phone Care Team Providers Care Material Engineer Name Role Phone David Coppola MD Primary Care Provider [phone] Allergies Active Allergy Reactions Criticality Noted Date Comments Cephalexin Unknown 10/27/2021 Gabapentin Unknown 10/27/2021 Sulfamethoxazole Unknown 10/27/2021 Medications acetaminophen (TYLENOL) 500 MG Tablet Take 500 mg by mouth every 4 hours as needed. Active clotrimazole (LOTRIMIN) 1 % Cream Apply 3 times daily. Application Site: Apply twice daily as needed for arm Active Lidocaine-Prilo umair (EMLA EX) 1 Application by Apply externally route daily. on dialysis days before procedure Active SITagliptin (JANUVIA) 100 MG Tablet Take [...] Tablet Take 1 Tablet by mouth daily. Take only on dialysis days 03/26/20 25 Active B Wjgynkm-Y-Wwwgm Acid (Triphrocaps) 1 MG Capsule Take 1 Capsule by mouth daily. Active atorvastatin (LIPITOR) 40 MG Tablet Take 1 Tablet by mouth daily. Active Insulin Lispro, 1 Unit Dial, (HumaLOG KwikPen) 100 UNIT/ML Solution Pen-injectorInd ications:pt takes Tresiba instead with same sliding scale. 2-12 Units by Subcutaneous route See Admin Instructions. <60 or >500: notify MD 150-199= 2 units 200-249= 4 units 250-299= 6 units 300-349 = 8 units 350-399=10 units 400-499= 12 units Indications: pt takes Tresiba instead with same sliding scale. Active insulin degludec (TRESIBA) 100 UNIT/ML Solution Pen-injectorInd ications:Type 2 Diabetes Mellitus 10 Units by Subcutaneous route nightly. Indications: Type 2 Diabetes Active cyanocobalamin (VITAMIN B12) 1000 MCG Tablet Take 1,000 mcg by mouth daily. Active ASPIRIN 81 PO Take 81 mg by mouth daily. 03/26/20 25 Active OXYCODONE HCL PO Take 5 mg by mouth 5 times daily as needed for Other (for sever pain). 03/26/20 25 Active clopidogrel (PLAVIX) 75 MG Tablet Take 75 mg by mouth daily. 03/26/20 25 Active Vitamin D3 (Vitamin D3) 1000 UNIT Tablet Take by mouth. 025 Discontin ued(Med List Clean Up) Liraglutide (VICTOZA SC) by Subcutaneous route. Pen inject 1.8 025 Discontin ued(Med List Clean Up) ergocalciferol (VITAMIN D) 86324 UNIT Capsule Take 1 Capsule by mouth once a week. saturdays 025 Discontin ued(Med List Clean Up) Melissa-3 Fatty Acids (FISH OIL PO) Take 1 Capsule by mouth daily. 025 Discontin ued(Med List Clean Up) Encounters Date Type Department Care Team Description 03/27/2025 Home Care Visit [address] [address] Claudia Aviles OT TELEPHONE ENCOUNTER 03/26/2025 1:00 PM CDT Home Care Visit [address] [address] Ruby Fisher, RN SN - OASIS START OF CARE 03/26/2025 Plan of Care Documentation [address] [address] 01/22/2025 2:00 PM CDT Home Care Visit [address] [address] Manuela Martin, RN SN - OASIS DISCHARGE 01/15/2025 2:00 PM CDT Home Care Visit [address] [address] Manuela Martin, RN SN - PRIORITY VISIT 01/13/2025 Home Care Visit [address] [address] Lindsay Boyd, RN CARE CONFERENCE 01/07/2025 Home Care Visit [address] [address] Mendy Kenny, RN CASE COMMUNICATION 01/06/2025 9:00 AM CDT Home Care Visit [address] [address] Manuela Martin RN SN - WOUND VISIT 01/06/2025 Home Care Visit [address] [address] Mendy Kenny, ABENA TELEPHONE ENCOUNTER 01/06/2025 Home Care Visit [address] [address] Lindsay Boyd, RN CARE CONFERENCE 01/02/2025 Home Care Visit [address] [address] Claudia Aviles OT OT - DISCHARGE SUMMARY 01/01/2025 2:00 PM CDT Home Care Visit [address] [address] Mendy Kenny RN SN - PRIORITY VISIT 12/26/2024 9:00 AM CDT Home Care Visit [address] [address] Gillian June, PT PT - DISCIPLINE DISCHARGE 12/26/2024 Travel from Last 3 Months Social History Tobacco Use Types Packs/Day Years Used Date Smoking Tobacco: Never Smokeless Tobacco: Never Comments No Sex and Gender Information Value Date Recorded Sex Assigned at Not on file Legal Sex Female 3:43 PM HEAD GROWER Gender Identity Not on file Sexual Orientation Not on file Last Filed Vital Signs Vital Sign Reading Time Taken Comments Blood Pressure 150/62 03/26/2025 2:10 PM CDT Pulse 74 03/26/2025 2:10 PM CDT Temperature 36.4 C (97.6 F) 03/26/2025 2:10 PM CDT Respiratory Rate 18 03/26/2025 2:10 PM CDT Oxygen Saturation 98% 03/26/2025 2:10 PM CDT Inhaled Oxygen Concentration - - Weight 48.9 kg (107 lb 12.8 oz) 01/22/2025 1:59 PM CDT Height 142.2 cm (4' 8) 03/26/2025 2:10 PM CDT Body Mass Index 24.17 11/27/2024 4:18 PM CDT Plan of Treatment Upcoming Encounters Date Type Department Care Team (Late st Contact Info) Description 03/31/2025 1:00 AM CDT Home Care Visit [address] [address] Lindsay Brown OT 03/31/2025 7:00 AM CDT Home Care Visit [address] [address] Tiffanie Medrano, PT [place] 04/02/2025 1:00 AM CDT Home Care Visit [address] [address] Ruby Fisher, RN [place] 04/09/2025 1:00 AM CDT Home Care Visit [address] [address] Ruby Fisher, RN [place] 04/16/2025 1:00 AM CDT Home Care Visit [address] [address] Ruby Fisher, RN [place] 04/23/2025 1:00 AM CDT Home Care Visit [address] [address] Ruby Fisher, RN [place] 04/30/2025 1:00 AM CDT Home Care Visit [address] [address] Ruby Fisher, RN [place] 05/07/2025 1:00 AM CDT Home Care Visit [address] [address] Ruby Fisher, RN [place] 05/14/2025 1:00 AM HEAD GROWER Home Care Visit [address] [address] Ruby Fisher, RN [place] 05/21/2025 1:00 AM HEAD GROWER Appointment [address] [address] Ruby Fisher, RN [place] Health Maintenance Due Date Last Done Comments DEXA Bone Density 1945 Hepatitis B Immunization (2 of 3 - 19+ 3-dose series) 05/24/2018 04/26/2018 Zoster Immunization (2 of 2) 01/06/2022 11/11/2021 Influenza Immunization (#1) 03/09/202502/07, 05/02/2023, 03/24/2020, Additional history exists SARS-COV-2 Immunization ( season) 2025 03/27/2024, 05/16/2023, 05/05/2022, Additional history exists Hepatitis [...] to complete this topic Insurance MEDICARE C [facility] Advance Directives * Full Code (Latest Code Status on File) Date Activated Date Inactivated Comments 03/27/2025 11:43 AM * Full Code Date Activated Date Inactivated Comments 12/04/2024 3:52 PM 03/27/2025 11:43 AM Care Teams Material Engineer Relationship Specialty Start Date End Date David Coppola MD [address] [place] [address] [address] [place] [address] PCP - General Family Medicine 11/22/24
--- OUTSIDE RECORDS SUMMARY | 2025-03-28 10:26 | XMS_ITS | Encounter Summary ---
Author Organization [facility] Address [address] [place] [address] Phone Care Team Providers Care Driver Retraining Instructor Name Role Phone David Coppola MD Primary Care Provider [phone] Jacob Suarez MD Unavailable [phone] Marnie Lara RN Unavailable Ros Seay MD Unavailable Johana Edmond RN Unavailable Abdifatah Villa MD Unavailable Issa Clements MD Unavailable [phone] Encounter Details Date Type Department Care Team (Late st Contact Info) Description 05/13/2018 Telephone [facility] Cardiology [address] [facility] Advanced Medicine 8th [place] [address] [place] [address] Cameron Haro MD [address] [place] [address] Social History Tobacco Use Types Packs/Day Years Used Date Smoking Tobacco: Never Smokeless Tobacco: Never Alcohol Use Standard Drinks/Week Comments No 0 (1 standard drink = 0.6 oz pur e alcohol) Comments No Sex and Gender Information Value Date Recorded Sex Assigned at Not on file Legal Sex Female 12:39 PM SENIOR FINANCIAL ACCOUNTANT Gender Identity Not on file Sexual [...] Influenza, adult 09/04/2019 09/04/2019 09/11/2019 3:05 AM SENIOR FINANCIAL ACCOUNTANT Abscess/Wound/Cellulitis 10/16/2019 10/16/2019 3:05 AM CDT documented as of this encounter Care Teams Driver Retraining Instructor Relationship Specialty Start Date End Date David Coppola MD PCP - General Family Medicine 10/29/17 Jacob Suarez MD Referring Physician Nephrology 12/20/18 Marnie Lara RN Registered Nurse Account Clerk 12/20/1809/03 Ros Seay MD Web Content Producer Cardiology 03/05/19 Johana Edmond, RN [address] [facility] [address] [place] [address] Account Clerk 08/21/19 Abdifatah Villa MD [address] [place] [address] Consulting Physician Cardiology 09/01/20 Issa Clements MD [address] [facility] [address] [place] [address] Referring Physician General Surgery 09/01/20 documented as of this encounter
--- OUTSIDE RECORDS SUMMARY | 2025-03-28 10:26 | XMS_ITS | Encounter Summary ---
Author Organization [facility] Address [address] [place] [address] Phone Care Team Providers Care Crossbar Frame Wirer Name Role Phone David Coppola MD Primary Care Provider [phone] Reason for Visit * Auth/Cert (Routine) Specialty Diagnoses / Procedures Referred By Contac t Referred To Contact Referral ID Status Reason Start Date Expiration Date Visits Re quested Visits Authorized [id number] 1 1 Encounter Details Date Type Department Care Team (Late st Contact Info) Description 03/27/2025 Home Care Visit [address] [address] Claudia Aviles, OT TELEPHONE ENCOUNTER Social History Tobacco Use Types Packs/Day Years Used Date Smoking Tobacco: Never Smokeless Tobacco: Never Comments No Sex and Gender Information Value Date Recorded Sex Assigned at Not on file Legal Sex Female 3:43 PM SURVEYING TECHNICIAN Gender Identity Not on file Sexual Orientation Not on file documented as of this encounter Plan of Treatment Upcoming Encounters Date Type Department Care Team (Late st Contact Info) Description 03/31/2025 1:00 AM CDT Home Care Visit [address] [address] Lindsay Brown OT 03/31/2025 7:00 AM CDT Home Care Visit [address] [address] Tiffanie Medrano PT [place] 04/02/2025 1:00 AM CDT Home Care Visit [address] [address] Ruby Fisher, RN [place] 04/09/2025 1:00 AM CDT Home Care Visit [address] [address] Ruby Fisher, RN [place] 04/16/2025 1:00 AM CDT Home Care Visit [address] [address] Ruby Fisher, RN [place] 04/23/2025 1:00 AM CDT Home Care Visit [address] [address] Ruby Fisher, RN [place] 04/30/2025 1:00 AM CDT Home Care Visit [address] [address] Ruby Fisher, RN [place] 05/07/2025 1:00 AM CDT Home Care Visit [address] [address] Ruby Fisher, RN [place] 05/14/2025 1:00 AM SURVEYING TECHNICIAN Home Care Visit [address] [address] Ruby Fisher, RN [place] 05/21/2025 1:00 AM SURVEYING TECHNICIAN Appointment [address] [address] Ruby Fisher, RN [place] documented as of this encounter Visit Diagnoses Not on filedocumented in this encounter Home Health Visit - Actions and Narratives Actions OT attempted to schedule matt luation. Multiple voicemail messages left. No return call received. Will attempt next week. documented in this encounter Care Teams Crossbar Frame Wirer Relationship Specialty Start Date End Date David Coppola MD [address] [place] [address] [address] [place], [place] [id number] PCP - General Family Medicine 11/22/24 documented as of this encounter
--- OUTSIDE RECORDS SUMMARY | 2025-03-28 10:29 | XMS_ITS | Clinical Summary ---
Author Organization [facility] Address [facility] [place] [address] Care Team Providers Care Back Tender Fourdrinier Name Role Phone David Coppola MD Primary Care Provider [phone]- [phone] Social History Tobacco Use Types Packs/Day Years [...] 2) 01/06/2022 11/11/2021 COVID-19 Vaccine ( season) 2025 05/05/2022, 11/04/2021, 05/27/2021, Additional history exists Pneumococcal [...] patient's age to complete this topic Insurance [facility] MEDICAID Care Teams Back Tender Fourdrinier Relationship Specialty Start Date End Date David Coppola MD [facility] [facility] [address] [address] PCP - General FAMILY PRACTICE 06/13/22
--- OUTSIDE RECORDS SUMMARY | 2025-03-28 10:29 | XMS_ITS | Encounter Summary ---
Author Organization [facility] Address [address] [facility] [place] [address] Care Team Providers Care Ticket Collector Name Role Phone David Coppola MD Primary Care Provider + [phone] David Coppola MD Unavailable [phone] David Coppola MD Unavailable [phone] Virginie Corea RN Unavailable [phone] Encounter Details Date Type Department Care Team (Late st Contact Info) Description 03/19/2023 Telephone [facility] . Wound Care [address] [facility] , [address] [phone] Lima Martins Social History Tobacco Use Types Packs/Day Years Used Date Smoking Tobacco: Never Smokeless Tobacco: Never Alcohol Use Standard Drinks/Week Comments No 0 (1 standard drink = 0.6 oz pur e alcohol) Comments No Sex and Gender Information Value Date Recorded Sex Assigned at Not on file Legal Sex Female 5:40 PM CARTON STAMPER Gender Identity Not on file Sexual Orientation [...] st Contact Info) Description 06/16/2025 1:00 PM CARTON STAMPER Procedure visit [facility] [place] [address] [place] [phone] 06/16/2025 1:30 PM CARTON STAMPER [facility] [place] [address] [place] [phone] Avis Dumont M, BUSINESS EDITOR-LITIGATION COORDINATOR [address] [place] [address] [place] [address] documented as of this encounter Visit Diagnoses Not on filedocumented in this encounter Care Teams Ticket Collector Relationship Specialty Start Date End Date David Coppola MD [address] [place] [phone] PCP - General 08/15/16 David Coppola MD [address] [place] [phone] Family Medicine 02/08/15 David Coppola MD [address] [place] [phone] Family Medicine 08/15/16 Virginie Corea, ABENA Legal Services Manager 02/23/15 documented as of this encounter
--- OUTSIDE RECORDS SUMMARY | 2025-03-28 10:29 | XMS_ITS | Encounter Summary ---
Author Organization [facility] Healthcare Address [address] [place] [address] Care Team Providers Care Direct Support Specialist Name Role Phone David Coppola MD Primary Care Provider [phone] Jacob Suarez MD Unavailable [phone] Ros Seay MD Unavailable Abdifatah Villa MD Unavailable Issa Clements MD Unavailable [phone] Encounter Details Date Type Department Care Team (Late st Contact Info) Description 03/16/2025 Telephone [facility] Radiology [address] [place], [place] [id number] Yaritza Golden RN Social History Tobacco Use [...] often do you attend chur ch or hindu services? 1 to 4 times per year [...] on file Legal Sex Female 12:39 PM BATTER DEPOSITOR Gender Identity Not on file Sexual Orientation Not on file documented as of this encounter Plan of Treatment Scheduled Procedures Name Priority Associated Diagnoses Date/Ti me TRANSPLANT KIDNEY ESRD (end stage renal disease) (HCC) documented as of this encounter Visit Diagnoses Not on filedocumented in this encounter Care Teams Direct Support Specialist Relationship Specialty Start Date End Date David Coppola MD PCP - General Family Medicine 10/29/17 Jacob Suarez MD Referring Physician Nephrology 12/20/18 Ros Seay MD Recoating Machine Operator Cardiology 03/05/19 Abdifatah Villa MD [address] [place] [address] [place] [address] Consulting Physician Cardiology 09/01/20 Issa Clements MD [address] [facility] [address] [place] [address] Referring Physician General Surgery 09/01/20 documented as of this encounter
--- OUTSIDE RECORDS SUMMARY | 2025-03-28 10:29 | XMS_ITS | Clinical Summary ---
Author Organization [facility] Address [address] [place] [id number] Phone Care Team Providers Care Abrasive Grinder Name Role Phone Unavailable Primary Care Provider Unavailabl e Medications imipramine (TOFRANIL) 25 MG tablet 0 03/04/2014 Active pioglitazone (ACTOS) 15 MG tablet 03/04/2014 Active amLODIPine (NORVASC) 5 MG tablet 03/04/2014 Active aspirin (ASPIR-LOW) 81 MG EC tablet 03/04/2014 Active lovastatin (MEVACOR) 20 MG tablet 03/04/2014 Active ergocalciferol (VITAMIN D-2) 40313 units capsule 1 weekly 03/04/2014 Active lisinopril (PRINIVIL,ZESTR IL) 20 MG tablet 1 daily 12 08/23/2017 Active diclofenac (VOLTAREN) 1 % topical gel 03/04/2014 Active omega-3 (FISH OIL) 1000 MG capsule 03/04/2014 Active clotrimazole (LOTRIMIN) 1 % cream 03/04/2014 Active ferrous sulfate 325 (65 Fe) MG tablet 03/04/2014 Active carvedilol (COREG) 3.125 MG tablet 1 ibid 12 07/17/2017 Active Methylcobalamin (Z55-ZLGUYU) 1 MG chewable tablet half tab daily [...] Comments Blood Pressure 119/62 09/11/2018 12:01 AM [employer] Pulse 72 02/01/2015 12:01 AM CDT Temperature 36.8 C (98.3 F) 02/01/2015 12:01 AM CDT Respiratory Rate - - Oxygen Saturation - - Inhaled Oxygen Concentration - - Weight 63.5 kg (140 lb) 09/11/2018 12:01 AM [employer] Height 149.9 cm (4' 11) 09/11/2018 12:01 AM [employer] Body Mass Index 28.28 09/11/2018 12:01 AM [employer] Plan of Treatment Health Maintenance Due Date Last Done Comments Pneumococcal PPSV23/PCV13 65 + Years / Low and Medium Risk (1 of 2 - PCV) 1996 Influenza Vaccine (#1) 2025
--- OUTSIDE RECORDS SUMMARY | 2025-03-28 10:29 | XMS_ITS | Encounter Summary ---
Author Organization [facility] Address [address] [place] [address] Care Team Providers Care Recreation Attendant Supervisor Name Role Phone David Coppola MD Primary Care Provider [phone] Jacob Suarez MD Unavailable [phone] Ros Seay MD Unavailable [phone] Abdifatah Villa MD Unavailable Issa Clements MD Unavailable [phone] Encounter Details Date Type Department Care Team (Late st Contact Info) Description 11/19/2024 Telephone [facility] Radiology [address] [place], [place] [id number] Yaritza Golden RN Social History Tobacco Use [...] often do you attend chur ch or mu-ism services? 1 to 4 times per year 09/04/2019 Do you belong to any clubs o r organizations such as mandaen groups, unions, fraternal or athletic groups, or [...] on file Legal Sex Female 12:39 PM SPORT INTERN Gender Identity Not on file Sexual Orientation Not on file documented as of this encounter Plan of Treatment Scheduled Procedures Name Priority Associated Diagnoses Date/Ti me TRANSPLANT KIDNEY ESRD (end stage renal disease) (HCC) documented as of this encounter Visit Diagnoses Not on filedocumented in this encounter Care Teams Recreation Attendant Supervisor Relationship Specialty Start Date End Date David Coppola MD PCP - General Family Medicine 10/29/17 Jacob Suarez MD Referring Physician Nephrology 12/20/18 Ros Seay MD Mid Level Developer Cardiology 03/05/19 Abdifatah Villa MD [address] [place] [address] Consulting Physician Cardiology 09/01/20 Issa Clements MD [address] [facility] [address] [place] [address] Referring Physician General Surgery 09/01/20 documented as of this encounter
--- OUTSIDE RECORDS SUMMARY | 2025-03-28 10:29 | XMS_ITS ---
Author Organization [facility] ([facility]) Address [address] [place] [id number] Care Team Providers Care Behavioral Modification Assistant Name Role Phone Unavailable Unavailable Unavailable Allergies, Adverse Reactions, Alerts Allergy Name Allergy Type Status Severity Reaction(s) Onset Date Inactive Date Treating Clinician Comments No Known Allergies Allergy Active 2022-05 11:42:3 8 Medications Ordered Medication Name Filled Medication Name Start Date Stop Date Current Medication? Ordering Clinician Indication Dosage Frequency Signature (SIG) Comments Components Mircera 03-05 05:00: 00 Yes [id number] Number of Repeats Allowed: Frequency: KATHIE dosing, every two weeks calcitriol 02-16 18:26: 36 Yes [id number] Number of Repeats Allowed: Frequency: Three times a week Venofer 02-05 12:08: 37 Yes [id number] Number of Repeats Allowed: Frequency: One time a weekDosesO rdered: Maintenanc e Dose 50 Milligram Route: Intravenou s Mircera 02-05 05:00: 00 Yes [id number] Number of Repeats Allowed: Frequency: KATHIE dosing, every two weeks cinacalcet hydrochlori de 12-19 21:32: 41 Yes [id number] Number of Repeats Allowed: Frequency: Three times a week Venofer 12-17 19:35: 58 Yes [id number] Number of Repeats Allowed: 5Frequency : Every Dialysis TreatmentD osesOrdere d: Loading Dose 200 Milligram Route: Intravenou s Mircera 12-13 05:00: 00 Yes [id number] Number of Repeats Allowed: Frequency: KATHIE dosing, every two weeks cinacalcet hydrochlori de 11-29 05:00: 00 Yes [id number] Number of Repeats Allowed: Frequency: Three times a week ONS [facility] 11-29 05:00: 00 Yes [id number] Number of Repeats Allowed: Frequency: Every Dialysis Treatment Venofer 11-27 12:07: 16 Yes [id number] Number of Repeats Allowed: Frequency: One time a weekDosesO rdered: Maintenanc e Dose 50 Milligram Route: Intravenou s Clopidogrel Bisulfate 11-24 17:40: 36 Yes Number of Repeats Allowed: Frequency: One time a day Aspirin 81 11-24 17:39: 56 Yes Number of Repeats Allowed: Frequency: One time a day calcitriol 11-24 12:47: 25 Yes [id number] Number of Repeats Allowed: Frequency: Three times a week on Sunday, Sunday and Sunday Mircera 11-24 12:42: 23 Yes [id number] Number of Repeats Allowed: Frequency: KATHIE dosing, every two weeks Oxygen 11-24 12:27: 51 Yes [id number] Number of Repeats Allowed: Frequency: As needed ondansetron hydrochlori de 11-24 12:27: 41 Yes [id number] Number of Repeats Allowed: Frequency: Every 4 hours as needed Insta-Gluco se 11-24 12:27: 31 Yes [id number] Number of Repeats Allowed: Frequency: Every 30 minutes as needed diphenhydra mine hydrochlori de 11-24 12:26: 18 Yes [id number] Number of Repeats Allowed: Frequency: Every 4 hours as needed diphenhydra mine hydrochlori de 11-24 12:26: 06 Yes [id number] Number of Repeats Allowed: Frequency: Every 30 minutes as needed clonidine 11-24 12:25: 56 Yes [id number] Number of Repeats Allowed: Frequency: Every 4 hours as needed Antacid Extra Strength 11-24 12:25: 46 Yes [id number] Number of Repeats Allowed: Frequency: Every 4 hours as needed acetaminoph en 11-24 12:25: 35 Yes [id number] Number of Repeats Allowed: Frequency: Every 4 hours as needed Mircera 11-13 05:00: 00 Yes [id number] Number of Repeats Allowed: Frequency: KATHIE dosing, every two weeks Tubersol 11-10 05:00: 00 Yes [id number] Number of Repeats Allowed: Frequency: One time only cinacalcet hydrochlori de 10-17 05:00: 00 Yes [id number] Number of Repeats Allowed: Frequency: Three times a week Vemlidy 10-15 18:03: 54 Yes Number of Repeats Allowed: Frequency: One time a day Prolia 10-15 17:29: 37 Yes Number of Repeats Allowed: Frequency: Every six months Carvedilol 10-15 17:20: 29 Yes Number of Repeats Allowed: Frequency: Two times a day Pantoprazol e Sodium 10-15 17:19: 54 Yes Number of Repeats Allowed: Frequency: Two times a day Januvia 10-15 17:17: 08 Yes Number of Repeats Allowed: Frequency: One time a day Lisinopril 10-15 17:14: 02 Yes Number of Repeats Allowed: Frequency: One time a day Ergocalcife rol 10-15 17:00: 54 Yes Number of Repeats Allowed: Frequency: One time a week traZODone HCl 10-15 16:59: 05 Yes Number of Repeats Allowed: Frequency: One time a day calcitriol 09-23 05:00: 00 Yes [id number] Number of Repeats Allowed: Frequency: Three times a week Mircera 09-20 05:00: 00 Yes [id number] Number of Repeats Allowed: Frequency: KATHIE dosing, every two weeks heparin sodium, porcine 09-20 05:00: 00 Yes [id number] Number of Repeats Allowed: Frequency: Every Dialysis TreatmentD osesOrdere d: Loading Dose 500 Units 1:1000 Units/mLRo tanana: Intravenou s Liraglutide 2023-07 18:52: 05 Yes Number of Repeats Allowed: Frequency: Once a day, at bedtime Insulin Degludec 2023-07 18:51: 33 Yes Number of Repeats Allowed: Frequency: One time a day B Complex-C-F olic Acid 2023-07 18:39: 33 Yes Number of Repeats Allowed: Frequency: One time a day Atorvastati n Calcium 2023-07 18:39: 01 Yes Number of Repeats Allowed: Frequency: One time a day Venofer 2023-07 19:41: 38 Yes [id number] Number of Repeats Allowed: Frequency: One time a weekDosesO rdered: Maintenanc e Dose 50 Milligram Route: Intravenou s Normal Saline Solution 0.9% NaCl 2023-07 13:36: 33 Yes [id number] Number of Repeats Allowed: Frequency: As needed Oxygen 2023-07 13:30: 15 Yes [id number] Number of Repeats Allowed: Frequency: As needed ondansetron hydrochlori de 2023-07 13:30: 05 Yes [id number] Number of Repeats Allowed: Frequency: Every 4 hours as needed loperamide hydrochlori de 2023-07 13:29: 56 Yes [id number] Number of Repeats Allowed: Frequency: Every 4 hours as needed diphenhydra mine hydrochlori de 2023-07 13:29: 40 Yes [id number] Number of Repeats Allowed: Frequency: Every 4 hours as needed clonidine 2023-07 13:29: 14 Yes [id number] Number of Repeats Allowed: Frequency: Every 4 hours as needed Antacid Extra Strength 2023-07 13:29: 04 Yes [id number] Number of Repeats Allowed: Frequency: Every 4 hours as needed acetaminoph en 2024-1 1-29 13:28: 55 Yes [id number] Number of Repeats Allowed: Frequency: Every 4 hours as needed Problems This patient has no known problems. Procedures Procedure Date / Time Performed Performing Clinician Marleen filomena Details AV Fistula 2020-08-31 06:00:00 Access Surgeon NOY MIDDLETON MD ([id number]),[place], [place] Access Site Upper Arm (Right) Access Use Start Date 2020-12-10 05:00:0 0 DIALYSIS TREATMENT INFORMATION Conventional Hemodialysis Date Type Treatment Start Date Treatment End Date Pre-Treatment Vitals Post-Treatment Vitals Weight Gain BFR DFR Actual UF Dialysis Access Septe mber 2024 In-Ce nter Hemod ialys is Treat ment 2025-03-27 T17:40:01. 000Z 2025-03-27 T21:11:16. 000Z BP Sitting (Pre-Dialysis) 144/63 mmHg BP Sitting (Post-D ialysis ) 151/ 54 mmHg Sitting Heart Rate Pre-Dialysis 69 BPM Sitting H eart Rate Post-Dialysis 68 BPM Temperature Pre-Dialysis 97.2 degF Temperature Post -Dialysis 97.6 degF March 25, 2025 In-Center Hemodialysis Treatment 4380-57-25M47:29:23.000Z 8664-93-44A86:00:38.000Z BP Sitting (Pre-Dialysis) 196/81 mmHg BP Sitting (Post-Dialysis) 167/80 mmHg Concurrent Access: falseAV Fistula Upper Arm (Right) Arterial Sitting Heart Rate Pre-Dialysis 72 BPM Sitting H eart Rate Post-Dialysis 72 BPM Temperature Pre-Dialysis 98.1 degF Temperature Post -Dialysis 97.5 degF March 23, 2025 In-Center Hemodialysis Treatment 6838-57-18V29:48:14.000Z 3633-04-91K48:17:49.000Z BP Sitting (Pre-Dialysis) 138/90 mmHg BP Sitting (Post-Dialysis) 164/80 mmHg Concurrent Access: falseAV Fistula Upper Arm (Right) Arterial Sitting Heart Rate Pre-Dialysis 75 BPM Sitting H eart Rate Post-Dialysis 59 BPM Temperature Pre-Dialysis 98.4 degF Temperature Post -Dialysis 96.2 degF March 16, 2025 In-Center Hemodialysis Treatment 1997-83-28C40:25:49.000Z 4248-55-57N68:56:21.000Z BP Sitting (Pre-Dialysis) 152/64 mmHg BP Sitting (Post-Dialysis) 137/44 mmHg Concurrent Access: falseAV Fistula Upper Arm (Right) Arterial Sitting Heart Rate Pre-Dialysis 73 BPM Sitting H eart Rate Post-Dialysis 65 BPM Temperature Pre-Dialysis 97.3 degF Temperature Post -Dialysis 98.1 degF March 13, 2025 In-Center Hemodialysis Treatment 5012-26-24C38:26:57.000Z 5339-70-33F74:57:22.000Z BP Sitting (Pre-Dialysis) 162/77 mmHg BP Sitting (Post-Dialysis) 172/44 mmHg Concurrent Access: falseAV Fistula Upper Arm (Right) Arterial BP Standing (Pre-Dialysis) 163/69 mmHg Sitti ng Heart Rate Post-Dialysis 60 BPM Sitting Heart Rate Pre-Dialysis 74 BPM Temperatu re Post-Dialysis 97.5 degF Standing Heart Rate Pre-Dialysis 78 BPM Temperature Pre-Dialysis 97.8 degF March 11, 2025 In-Center Hemodialysis Treatment 6134-35-95C89:46:14.000Z 9334-40-85Q67:19:34.000Z BP Sitting (Pre-Dialysis) 160/72 mmHg BP Sitting (Post-Dialysis) 148/52 mmHg Concurrent Access: falseAV Fistula Upper Arm (Right) Arterial Sitting Heart Rate Pre-Dialysis 65 BPM Sitting H eart Rate Post-Dialysis 70 BPM Temperature Pre-Dialysis 98.5 degF Temperature Post -Dialysis 98.1 degF March 09, 2025 In-Center Hemodialysis Treatment 6435-28-32J35:46:13.000Z 1392-08-10S71:02:03.000Z BP Sitting (Pre-Dialysis) 200/72 mmHg BP Sitting (Post-Dialysis) 201/92 mmHg Concurrent Access: falseAV Fistula Upper Arm (Right) Arterial BP Standing (Pre-Dialysis) 186/74 mmHg Sitti ng Heart Rate Post-Dialysis 64 BPM Sitting Heart Rate Pre-Dialysis 73 BPM Temperatu re Post-Dialysis 97.6 degF Standing Heart Rate Pre-Dialysis 63 BPM Temperature Pre-Dialysis 97.4 degF March 06, 2025 In-Center Hemodialysis Treatment 4293-25-78M24:19:07.000Z 8418-75-17N88:21:37.000Z BP Sitting (Pre-Dialysis) 167/88 mmHg BP Sitting (Post-Dialysis) 177/73 mmHg Concurrent Access: falseAV Fistula Upper Arm (Right) Arterial Sitting Heart Rate Pre-Dialysis 81 BPM Sitting H eart Rate Post-Dialysis 64 BPM Temperature Pre-Dialysis 98.1 degF Temperature Post -Dialysis 97.7 degF March 04, 2025 In-Center Hemodialysis Treatment 3228-80-38Y44:38:16.000Z 1046-25-53B94:09:31.000Z BP Sitting (Pre-Dialysis) 158/66 mmHg BP Sitting (Post-Dialysis) 164/46 mmHg Concurrent Access: falseAV Fistula Upper Arm (Right) Arterial Sitting Heart Rate Pre-Dialysis 80 BPM Sitting H eart Rate Post-Dialysis 73 BPM Temperature Pre-Dialysis 98.6 degF Temperature Post -Dialysis 97.5 degF March 02, 2025 In-Center Hemodialysis Treatment 0843-75-41E73:27:00.000Z 3034-26-09G29:00:53.000Z BP Sitting (Pre-Dialysis) 150/72 mmHg BP Sitting (Post-Dialysis) 179/74 mmHg Concurrent Access: falseAV Fistula Upper Arm (Right) Arterial Sitting Heart Rate Pre-Dialysis 77 BPM Sitting H eart Rate Post-Dialysis 63 BPM Temperature Pre-Dialysis 97.5 degF Temperature Post -Dialysis 97.3 degF February 27, 2025 In-Center Hemodialysis Treatment 1606-04-92F27:15:08.000Z 3472-84-42L35:48:03.000Z BP Sitting (Pre-Dialysis) 181/91 mmHg BP Sitting (Post-Dialysis) 163/73 mmHg Concurrent Access: falseAV Fistula Upper Arm (Right) Arterial BP Standing (Pre-Dialysis) 168/95 mmHg BP Standing (P ost-Dialysis) 135/63 mmHg Sitting Heart Rate Pre-Dialysis 62 BPM Sitting Heart Rate Post-Dialysis 73 BPM Standing Heart Rate Pre-Dialysis 68 BPM Standing Heart Rate Post-Dialysis 69 BPM Temperature Pre-Dialysis 98 degF Temperature Post -Dialysis 97.2 degF February 25, 2025 In-Center Hemodialysis Treatment 7731-61-34F71:26:06.000Z 7588-57-97W15:59:01.000Z BP Sitting (Pre-Dialysis) 177/75 mmHg BP Sitting (Post-Dialysis) 171/66 mmHg Concurrent Access: falseAV Fistula Upper Arm (Right) Arterial Sitting Heart Rate Pre-Dialysis 74 BPM Sitting H eart Rate Post-Dialysis 64 BPM Temperature Pre-Dialysis 97.8 degF Temperature Post -Dialysis 97.5 degF February 23, 2025 In-Center Hemodialysis Treatment 5697-73-16J25:20:51.000Z 4113-91-44F61:53:21.000Z BP Sitting (Pre-Dialysis) 186/72 mmHg BP Sitting (Post-Dialysis) 129/54 mmHg Concurrent Access: falseAV Fistula Upper Arm (Right) Arterial Sitting Heart Rate Pre-Dialysis 78 BPM Sitting H eart Rate Post-Dialysis 72 BPM Temperature Pre-Dialysis 97.5 degF Temperature Post -Dialysis 98.2 degF February 20, 2025 In-Center Hemodialysis Treatment 9754-15-75S55:23:17.000Z 3449-33-66V14:57:52.000Z BP Sitting (Pre-Dialysis) 152/59 mmHg BP Sitting (Post-Dialysis) 148/83 mmHg Concurrent Access: falseAV Fistula Upper Arm (Right) Arterial BP Standing (Pre-Dialysis) 154/63 mmHg BP Standing (P ost-Dialysis) 152/60 mmHg Sitting Heart Rate Pre-Dialysis 67 BPM Sitting Heart Rate Post-Dialysis 63 BPM Standing Heart Rate Pre-Dialysis 60 BPM Standing Heart Rate Post-Dialysis 64 BPM Temperature Pre-Dialysis 98.4 degF Temperature Post -Dialysis 97.6 degF February 18, 2025 In-Center Hemodialysis Treatment 3619-87-52E87:16:36.000Z 8661-43-06U45:47:26.000Z BP Sitting (Pre-Dialysis) 164/74 mmHg BP Sitting (Post-Dialysis) 143/61 mmHg Concurrent Access: falseAV Fistula Upper Arm (Right) Arterial BP Standing (Pre-Dialysis) 142/72 mmHg BP Standing (P ost-Dialysis) 165/71 mmHg Sitting Heart Rate Pre-Dialysis 58 BPM Sitting Heart Rate Post-Dialysis 61 BPM Standing Heart Rate Pre-Dialysis 65 BPM Standing Heart Rate Post-Dialysis 74 BPM Temperature Pre-Dialysis 98.1 degF Temperature Post -Dialysis 97.6 degF February 16, 2025 In-Center Hemodialysis Treatment 9245-42-72F69:30:03.000Z 2279-25-07T84:56:18.000Z BP Sitting (Pre-Dialysis) 154/67 mmHg BP Sitting (Post-Dialysis) 183/72 mmHg Concurrent Access: falseAV Fistula Upper Arm (Right) Arterial Sitting Heart Rate Pre-Dialysis 82 BPM Sitting H eart Rate Post-Dialysis 68 BPM Temperature Pre-Dialysis 97.6 degF Temperature Post -Dialysis 98.2 degF February 09, 2025 In-Center Hemodialysis Treatment 2891-14-49F96:23:00.000Z 5860-84-46C50:58:11.000Z BP Sitting (Pre-Dialysis) 141/65 mmHg BP Sitting (Post-Dialysis) 154/58 mmHg Concurrent Access: falseAV Fistula Upper Arm (Right) Arterial Sitting Heart Rate Pre-Dialysis 80 BPM BP Standing (Post-Dialysis) 201/78 mmHg Temperature Pre-Dialysis 97.2 degF Sitting Heart Ra te Post-Dialysis 66 BPM Standing Heart Rate Post-Karina lysis 73 BPM Temperature Post-Dialysis 97 .8 degF February 06, 2025 In-Center Hemodialysis Treatment 3296-31-62V99:23:51.000Z 8682-56-25H74:54:16.000Z BP Sitting (Pre-Dialysis) 172/69 mmHg BP Sitting (Post-Dialysis) 170/93 mmHg Concurrent Access: falseAV Fistula Upper Arm (Right) Arterial BP Standing (Pre-Dialysis) 160/71 mmHg BP Standing (P ost-Dialysis) 177/82 mmHg Sitting Heart Rate Pre-Dialysis 78 BPM Sitting Heart Rate Post-Dialysis 68 BPM Standing Heart Rate Pre-Dialysis 73 BPM Standing Heart Rate Post-Dialysis 76 BPM Temperature Pre-Dialysis 98.5 degF Temperature Post -Dialysis 97.2 degF February 04, 2025 In-Center Hemodialysis Treatment 0384-72-23Z96:18:36.000Z 1405-67-09C64:49:26.000Z BP Sitting (Pre-Dialysis) 162/87 mmHg BP Sitting (Post-Dialysis) 160/77 mmHg Concurrent Access: falseAV Fistula Upper Arm (Right) Arterial BP Standing (Pre-Dialysis) 162/74 mmHg Sitti ng Heart Rate Post-Dialysis 68 BPM Sitting Heart Rate Pre-Dialysis 78 BPM Temperatu re Post-Dialysis 98.4 degF Standing Heart Rate Pre-Dialysis 80 BPM Temperature Pre-Dialysis 98.7 degF February 02, 2025 In-Center Hemodialysis Treatment 5101-50-86W34:28:46.000Z 0467-13-13N32:03:21.000Z BP Sitting (Pre-Dialysis) 184/70 mmHg BP Sitting (Post-Dialysis) 154/65 mmHg Concurrent Access: falseAV Fistula Upper Arm (Right) Arterial BP Standing (Pre-Dialysis) 112/56 mmHg BP Standing (P ost-Dialysis) 154/65 mmHg Sitting Heart Rate Pre-Dialysis 69 BPM Sitting Heart Rate Post-Dialysis 74 BPM Standing Heart Rate Pre-Dialysis 111 BPM Standing Heart Rate Post-Dialysis 74 BPM Temperature Pre-Dialysis 98.4 degF Temperature Post -Dialysis 98.2 degF January 30, 2025 In-Center Hemodialysis Treatment 6304-34-89Q02:18:19.000Z 5006-01-84S23:50:24.000Z BP Sitting (Pre-Dialysis) 172/68 mmHg BP Sitting (Post-Dialysis) 184/70 mmHg Concurrent Access: falseAV Fistula Upper Arm (Right) Arterial BP Standing (Pre-Dialysis) 172/68 mmHg Sitti ng Heart Rate Post-Dialysis 74 BPM Sitting Heart Rate Pre-Dialysis 61 BPM Temperatu re Post-Dialysis 97.4 degF Standing Heart Rate Pre-Dialysis 61 BPM Temperature Pre-Dialysis 98.6 degF January 28, 2025 In-Center Hemodialysis Treatment 4297-37-18H17:18:56.000Z 9772-49-28P89:51:01.000Z BP Sitting (Pre-Dialysis) 161/65 mmHg BP Sitting (Post-Dialysis) 190/59 mmHg Concurrent Access: falseAV Fistula Upper Arm (Right) Arterial BP Standing (Pre-Dialysis) 164/73 mmHg BP Standing (P ost-Dialysis) 190/87 mmHg Sitting Heart Rate Pre-Dialysis 62 BPM Sitting Heart Rate Post-Dialysis 58 BPM Standing Heart Rate Pre-Dialysis 67 BPM Standing Heart Rate Post-Dialysis 60 BPM Temperature Pre-Dialysis 97.3 degF Temperature Post -Dialysis 97.2 degF January 26, 2025 In-Center Hemodialysis Treatment 4087-15-38U72:28:54.000Z 3928-96-96K34:59:19.000Z BP Sitting (Pre-Dialysis) 175/70 mmHg BP Sitting (Post-Dialysis) 176/70 mmHg Concurrent Access: falseAV Fistula Upper Arm (Right) Arterial BP Standing (Pre-Dialysis) 174/78 mmHg Sitti ng Heart Rate Post-Dialysis 62 BPM Sitting Heart Rate Pre-Dialysis 60 BPM Temperatu re Post-Dialysis 96.3 degF Standing Heart Rate Pre-Dialysis 62 BPM Temperature Pre-Dialysis 97.6 degF January 23, 2025 In-Center Hemodialysis Treatment [id number]:17:21.000Z 6816-61-39W81:54:51.000Z BP Sitting (Pre-Dialysis) 187/73 mmHg BP Sitting (Post-Dialysis) 158/66 mmHg Concurrent Access: falseAV Fistula Upper Arm (Right) Arterial BP Standing (Pre-Dialysis) 167/69 mmHg BP Standing (P ost-Dialysis) 155/71 mmHg Sitting Heart Rate Pre-Dialysis 66 BPM Sitting Heart Rate Post-Dialysis 59 BPM Standing Heart Rate Pre-Dialysis 68 BPM Standing Heart Rate Post-Dialysis 68 BPM Temperature Pre-Dialysis 97.8 degF Temperature Post -Dialysis 97.6 degF January 21, 2025 In-Center Hemodialysis Treatment 2558-65-94A23:29:26.000Z 4895-71-03P00:57:00.000Z BP Sitting (Pre-Dialysis) 164/66 mmHg BP Sitting (Post-Dialysis) 176/68 mmHg Concurrent Access: falseAV Fistula Upper Arm (Right) Arterial BP Standing (Pre-Dialysis) 164/69 mmHg Sitti ng Heart Rate Post-Dialysis 62 BPM Sitting Heart Rate Pre-Dialysis 58 BPM Temperatu re Post-Dialysis 97.2 degF Standing Heart Rate Pre-Dialysis 59 BPM Temperature Pre-Dialysis 98.1 degF January 19, 2025 In-Center Hemodialysis Treatment 2789-88-82T15:21:46.000Z 5201-52-00Z15:59:16.000Z BP Sitting (Pre-Dialysis) 163/69 mmHg BP Sitting (Post-Dialysis) 156/55 mmHg Concurrent Access: falseAV Fistula Upper Arm (Right) Arterial BP Standing (Pre-Dialysis) 155/63 mmHg BP Standing (P ost-Dialysis) 184/73 mmHg Sitting Heart Rate Pre-Dialysis 63 BPM Sitting Heart Rate Post-Dialysis 56 BPM Standing Heart Rate Pre-Dialysis 62 BPM Standing Heart Rate Post-Dialysis 65 BPM Temperature Pre-Dialysis 97.2 degF Temperature Post -Dialysis 97.2 degF January 16, 2025 In-Center Hemodialysis Treatment 8319-78-92U85:20:00.000Z 2568-64-36O99:55:17.000Z BP Sitting (Pre-Dialysis) 149/48 mmHg BP Sitting (Post-Dialysis) 154/65 mmHg Concurrent Access: falseAV Fistula Upper Arm (Right) Arterial Sitting Heart Rate Pre-Dialysis 77 BPM Sitting H eart Rate Post-Dialysis 59 BPM Temperature Pre-Dialysis 98.3 degF Temperature Post -Dialysis 97.3 degF January 14, 2025 In-Center Hemodialysis Treatment 3623-75-54C00:29:08.000Z 2328-99-41N87:07:53.000Z BP Sitting (Pre-Dialysis) 172/64 mmHg BP Sitting (Post-Dialysis) 150/54 mmHg Concurrent Access: falseAV Fistula Upper Arm (Right) Arterial BP Standing (Pre-Dialysis) 164/64 mmHg BP Standing (P ost-Dialysis) 149/53 mmHg Sitting Heart Rate Pre-Dialysis 70 BPM Sitting Heart Rate Post-Dialysis 61 BPM Standing Heart Rate Pre-Dialysis 72 BPM Standing Heart Rate Post-Dialysis 70 BPM Temperature Pre-Dialysis 97.2 degF Temperature Post -Dialysis 97.2 degF January 12, 2025 In-Center Hemodialysis Treatment 8693-03-79K79:13:44.000Z 0345-65-23N58:44:59.000Z BP Sitting (Pre-Dialysis) 157/78 mmHg BP Sitting (Post-Dialysis) 194/73 mmHg Concurrent Access: falseAV Fistula Upper Arm (Right) Arterial BP Standing (Pre-Dialysis) 151/71 mmHg BP Standing (P ost-Dialysis) 172/65 mmHg Sitting Heart Rate Pre-Dialysis 69 BPM Sitting Heart Rate Post-Dialysis 62 BPM Standing Heart Rate Pre-Dialysis 65 BPM Standing Heart Rate Post-Dialysis 68 BPM Temperature Pre-Dialysis 97.2 degF Temperature Post -Dialysis 97.8 degF January 09, 2025 In-Center Hemodialysis Treatment 3569-39-45G67:57:50.000Z 3088-59-90L36:29:05.000Z BP Sitting (Pre-Dialysis) 161/72 mmHg BP Sitting (Post-Dialysis) 168/59 mmHg Concurrent Access: falseAV Fistula Upper Arm (Right) Arterial BP Standing (Pre-Dialysis) 159/66 mmHg Sitti ng Heart Rate Post-Dialysis 58 BPM Sitting Heart Rate Pre-Dialysis 81 BPM Temperatu re Post-Dialysis 97.7 degF Standing Heart Rate Pre-Dialysis 79 BPM Temperature Pre-Dialysis 97.8 degF January 07, 2025 In-Center Hemodialysis Treatment 4386-60-97U64:14:42.000Z 0565-56-29H59:43:02.000Z BP Sitting (Pre-Dialysis) 157/49 mmHg BP Sitting (Post-Dialysis) 155/48 mmHg Concurrent Access: falseAV Fistula Upper Arm (Right) Arterial BP Standing (Pre-Dialysis) 143/50 mmHg BP Standing (P ost-Dialysis) 166/70 mmHg Sitting Heart Rate Pre-Dialysis 65 BPM Sitting Heart Rate Post-Dialysis 61 BPM Standing Heart Rate Pre-Dialysis 68 BPM Standing Heart Rate Post-Dialysis 74 BPM Temperature Pre-Dialysis 97.8 degF Temperature Post -Dialysis 98.4 degF January 05, 2025 In-Center Hemodialysis Treatment 0492-09-72A42:14:04.000Z 3776-38-39P17:45:44.000Z BP Sitting (Pre-Dialysis) 177/81 mmHg BP Sitting (Post-Dialysis) 143/59 mmHg Concurrent Access: falseAV Fistula Upper Arm (Right) Arterial BP Standing (Pre-Dialysis) 169/74 mmHg Sitti ng Heart Rate Post-Dialysis 64 BPM Sitting Heart Rate Pre-Dialysis 69 BPM Temperatu re Post-Dialysis 98.6 degF Standing Heart Rate Pre-Dialysis 78 BPM Temperature Pre-Dialysis 98.3 degF January 02, 2025 In-Center Hemodialysis Treatment 8492-30-43C85:48:47.000Z 0440-70-05I04:20:27.000Z BP Sitting (Pre-Dialysis) 159/65 mmHg BP Sitting (Post-Dialysis) 169/70 mmHg Concurrent Access: falseAV Fistula Upper Arm (Right) Arterial BP Standing (Pre-Dialysis) 147/63 mmHg Sitti ng Heart Rate Post-Dialysis 68 BPM Sitting Heart Rate Pre-Dialysis 70 BPM Temperatu re Post-Dialysis 97.3 degF Standing Heart Rate Pre-Dialysis 78 BPM Temperature Pre-Dialysis 97.6 degF December 31, 2024 In-Center Hemodialysis Treatment 3045-37-13B33:15:46.000Z 5136-53-63B74:40:46.000Z BP Sitting (Pre-Dialysis) 156/99 mmHg BP Sitting (Post-Dialysis) 137/62 mmHg Concurrent Access: falseAV Fistula Upper Arm (Right) Arterial BP Standing (Pre-Dialysis) 149/102 mmHg BP Standing (P ost-Dialysis) 149/75 mmHg Sitting Heart Rate Pre-Dialysis 72 BPM Sitting Heart Rate Post-Dialysis 77 BPM Standing Heart Rate Pre-Dialysis 87 BPM Standing Heart Rate Post-Dialysis 72 BPM Temperature Pre-Dialysis 97.6 degF Temperature Post -Dialysis 97.2 degF December 29, 2024 In-Center Hemodialysis Treatment 2428-75-92F74:12:48.000Z 5310-00-39I61:44:03.000Z BP Sitting (Pre-Dialysis) 123/45 mmHg BP Sitting (Post-Dialysis) 145/53 mmHg Concurrent Access: falseAV Fistula Upper Arm (Right) Arterial BP Standing (Pre-Dialysis) 176/74 mmHg BP Standing (P ost-Dialysis) 160/64 mmHg Sitting Heart Rate Pre-Dialysis 85 BPM Sitting Heart Rate Post-Dialysis 66 BPM Standing Heart Rate Pre-Dialysis 82 BPM Standing Heart Rate Post-Dialysis 79 BPM Temperature Pre-Dialysis 97.2 degF Temperature Post -Dialysis 97.5 degF December 26, 2024 In-Center Hemodialysis Treatment 1481-01-83S33:17:32.000Z 3986-79-00H26:50:52.000Z BP Sitting (Pre-Dialysis) 139/69 mmHg BP Sitting (Post-Dialysis) 159/55 mmHg Concurrent Access: falseAV Fistula Upper Arm (Right) Arterial BP Standing (Pre-Dialysis) 141/65 mmHg BP Standing (P ost-Dialysis) 148/62 mmHg Sitting Heart Rate Pre-Dialysis 82 BPM Sitting Heart Rate Post-Dialysis 63 BPM Standing Heart Rate Pre-Dialysis 80 BPM Standing Heart Rate Post-Dialysis 64 BPM Temperature Pre-Dialysis 97.2 degF Temperature Post -Dialysis 98.2 degF December 24, 2024 In-Center Hemodialysis Treatment 0738-10-08M53:30:22.000Z 2228-68-57Q23:00:22.000Z BP Sitting (Pre-Dialysis) 137/82 mmHg BP Sitting (Post-Dialysis) 146/57 mmHg Concurrent Access: falseAV Fistula Upper Arm (Right) Arterial BP Standing (Pre-Dialysis) 141/85 mmHg Sitti ng Heart Rate Post-Dialysis 64 BPM Sitting Heart Rate Pre-Dialysis 65 BPM Temperatu re Post-Dialysis 97.2 degF Standing Heart Rate Pre-Dialysis 66 BPM Temperature Pre-Dialysis 97.7 degF December 22, 2024 In-Center Hemodialysis Treatment 6637-42-26K59:28:22.000Z 8083-74-37P12:58:22.000Z BP Sitting (Pre-Dialysis) 169/70 mmHg BP Sitting (Post-Dialysis) 146/48 mmHg Concurrent Access: falseAV Fistula Upper Arm (Right) Arterial BP Standing (Pre-Dialysis) 173/68 mmHg BP Standing (P ost-Dialysis) 149/62 mmHg Sitting Heart Rate Pre-Dialysis 79 BPM Sitting Heart Rate Post-Dialysis 67 BPM Standing Heart Rate Pre-Dialysis 89 BPM Standing Heart Rate Post-Dialysis 80 BPM Temperature Pre-Dialysis 97.9 degF Temperature Post -Dialysis 97.2 degF December 19, 2024 In-Center Hemodialysis Treatment 5029-68-71T12:21:07.000Z 9508-38-90F46:52:22.000Z BP Sitting (Pre-Dialysis) 158/76 mmHg BP Sitting (Post-Dialysis) 192/75 mmHg Concurrent Access: falseAV Fistula Upper Arm (Right) Arterial BP Standing (Pre-Dialysis) 150/75 mmHg Sitti ng Heart Rate Post-Dialysis 83 BPM Sitting Heart Rate Pre-Dialysis 71 BPM Temperatu re Post-Dialysis 97.2 degF Standing Heart Rate Pre-Dialysis 70 BPM Temperature Pre-Dialysis 97.2 degF December 17, 2024 In-Center Hemodialysis Treatment 5124-66-86Q11:15:17.000Z 7240-32-41G02:46:32.000Z BP Sitting (Pre-Dialysis) 149/55 mmHg BP Sitting (Post-Dialysis) 153/57 mmHg Concurrent Access: falseAV Fistula Upper Arm (Right) Arterial BP Standing (Pre-Dialysis) 144/53 mmHg BP Standing (P ost-Dialysis) 144/55 mmHg Sitting Heart Rate Pre-Dialysis 80 BPM Sitting Heart Rate Post-Dialysis 64 BPM Standing Heart Rate Pre-Dialysis 79 BPM Standing Heart Rate Post-Dialysis 79 BPM Temperature Pre-Dialysis 97.2 degF Temperature Post -Dialysis 97.8 degF December 15, 2024 In-Center Hemodialysis Treatment 6761-86-68J59:18:20.000Z 2205-88-90L22:47:55.000Z BP Sitting (Pre-Dialysis) 161/44 mmHg BP Sitting (Post-Dialysis) 145/62 mmHg Concurrent Access: falseAV Fistula Upper Arm (Right) Arterial BP Standing (Pre-Dialysis) 150/61 mmHg Sitti ng Heart Rate Post-Dialysis 74 BPM Sitting Heart Rate Pre-Dialysis 79 BPM Temperatu re Post-Dialysis 97.1 degF Standing Heart Rate Pre-Dialysis 74 BPM Temperature Pre-Dialysis 97.2 degF December 12, 2024 In-Center Hemodialysis Treatment 1103-02-30H12:20:13.000Z 1917-62-06Q88:09:23.000Z BP Sitting (Pre-Dialysis) 141/59 mmHg BP Sitting (Post-Dialysis) 156/52 mmHg Concurrent Access: falseAV Fistula Upper Arm (Right) Arterial BP Standing (Pre-Dialysis) 127/59 mmHg Sitti ng Heart Rate Post-Dialysis 69 BPM Sitting Heart Rate Pre-Dialysis 76 BPM Temperatu re Post-Dialysis 97.5 degF Standing Heart Rate Pre-Dialysis 79 BPM Temperature Pre-Dialysis 97.8 degF December 10, 2024 In-Center Hemodialysis Treatment 4239-13-51D07:11:05.000Z 0434-67-75D45:24:25.000Z BP Sitting (Pre-Dialysis) 146/65 mmHg BP Sitting (Post-Dialysis) 139/66 mmHg Concurrent Access: falseAV Fistula Upper Arm (Right) Arterial BP Standing (Pre-Dialysis) 152/65 mmHg Sitti ng Heart Rate Post-Dialysis 73 BPM Sitting Heart Rate Pre-Dialysis 71 BPM Temperatu re Post-Dialysis 97.2 degF Standing Heart Rate Pre-Dialysis 70 BPM Temperature Pre-Dialysis 97.2 degF December 08, 2024 In-Center Hemodialysis Treatment 9428-50-81J21:22:42.000Z 6289-50-27I42:35:12.000Z BP Sitting (Pre-Dialysis) 150/61 mmHg BP Sitting (Post-Dialysis) 138/56 mmHg Concurrent Access: falseAV Fistula Upper Arm (Right) Arterial Sitting Heart Rate Pre-Dialysis 76 BPM Sitting H eart Rate Post-Dialysis 60 BPM Temperature Pre-Dialysis 97.8 degF Temperature Post -Dialysis 97.4 degF December 05, 2024 In-Center Hemodialysis Treatment 4406-05-79L49:21:00.000Z 3263-23-13Q51:36:43.000Z BP Sitting (Pre-Dialysis) 158/64 mmHg BP Sitting (Post-Dialysis) 150/61 mmHg Concurrent Access: falseAV Fistula Upper Arm (Right) Arterial BP Standing (Pre-Dialysis) 155/64 mmHg Sitti ng Heart Rate Post-Dialysis 77 BPM Sitting Heart Rate Pre-Dialysis 73 BPM Temperatu re Post-Dialysis 97.2 degF Standing Heart Rate Pre-Dialysis 75 BPM Temperature Pre-Dialysis 97.8 degF December 03, 2024 In-Center Hemodialysis Treatment 1210-97-81M97:26:48.000Z 6360-40-03M55:40:58.000Z BP Sitting (Pre-Dialysis) 137/50 mmHg BP Sitting (Post-Dialysis) 143/48 mmHg Concurrent Access: falseAV Fistula Upper Arm (Right) Arterial Sitting Heart Rate Pre-Dialysis 66 BPM Sitting H eart Rate Post-Dialysis 68 BPM Temperature Pre-Dialysis 97.8 degF Temperature Post -Dialysis 97.3 degF December 01, 2024 In-Center Hemodialysis Treatment 4139-61-30K19:42:32.000Z 6364-64-42B71:04:37.000Z BP Sitting (Pre-Dialysis) 128/60 mmHg BP Sitting (Post-Dialysis) 127/63 mmHg Concurrent Access: falseAV Fistula Upper Arm (Right) Arterial BP Standing (Pre-Dialysis) 145/51 mmHg BP Standing (P ost-Dialysis) 102/53 mmHg Sitting Heart Rate Pre-Dialysis 70 BPM Sitting Heart Rate Post-Dialysis 59 BPM Standing Heart Rate Pre-Dialysis 76 BPM Standing Heart Rate Post-Dialysis 69 BPM Temperature Pre-Dialysis 97.2 degF Temperature Post -Dialysis 97.2 degF November 28, 2024 In-Center Hemodialysis Treatment 3445-74-88H24:05:37.000Z 6111-27-48Y00:21:27.000Z BP Sitting (Pre-Dialysis) 142/63 mmHg BP Sitting (Post-Dialysis) 135/37 mmHg Concurrent Access: falseAV Fistula Upper Arm (Right) Arterial BP Standing (Pre-Dialysis) 134/67 mmHg Sitti ng Heart Rate Post-Dialysis 75 BPM Sitting Heart Rate Pre-Dialysis 67 BPM Temperatu re Post-Dialysis 97.5 degF Standing Heart Rate Pre-Dialysis 69 BPM Temperature Pre-Dialysis 97.7 degF November 26, 2024 In-Center Hemodialysis Treatment 1760-81-52M88:21:21.000Z 1111-29-78M17:19:41.000Z BP Sitting (Pre-Dialysis) 142/64 mmHg BP Sitting (Post-Dialysis) 149/70 mmHg Concurrent Access: falseAV Fistula Upper Arm (Right) Arterial BP Standing (Pre-Dialysis) 137/62 mmHg Sitti ng Heart Rate Post-Dialysis 67 BPM Sitting Heart Rate Pre-Dialysis 78 BPM Temperatu re Post-Dialysis 97.2 degF Standing Heart Rate Pre-Dialysis 75 BPM Temperature Pre-Dialysis 97.2 degF November 24, 2024 In-Center Hemodialysis Treatment 0588-73-13X18:27:17.000Z 5929-34-40U28:13:57.000Z BP Sitting (Pre-Dialysis) 145/59 mmHg BP Sitting (Post-Dialysis) 147/68 mmHg Concurrent Access: falseAV Fistula Upper Arm (Right) Arterial Sitting Heart Rate Pre-Dialysis 62 BPM Sitting H eart Rate Post-Dialysis 68 BPM Temperature Pre-Dialysis 97.2 degF Temperature Post -Dialysis 96.9 degF November 19, 2024 In-Center Hemodialysis Treatment 7316-05-65P88:14:57.000Z 8288-56-87A78:46:56.000Z BP Sitting (Pre-Dialysis) 106/46 mmHg BP Sitting (Post-Dialysis) 102/49 mmHg Concurrent Access: falseAV Fistula Upper Arm (Right) Arterial Sitting Heart Rate Pre-Dialysis 70 BPM Sitting H eart Rate Post-Dialysis 78 BPM Temperature Pre-Dialysis 98.2 degF Temperature Post -Dialysis 98.2 degF November 17, 2024 In-Center Hemodialysis Treatment 9396-56-00G65:15:25.000Z 7013-53-50P50:51:26.000Z BP Sitting (Pre-Dialysis) 160/69 mmHg BP Sitting (Post-Dialysis) 120/52 mmHg Concurrent Access: falseAV Fistula Upper Arm (Right) Arterial BP Standing (Pre-Dialysis) 150/64 mmHg BP Standing (P ost-Dialysis) 119/53 mmHg Sitting Heart Rate Pre-Dialysis 73 BPM Sitting Heart Rate Post-Dialysis 72 BPM Standing Heart Rate Pre-Dialysis 68 BPM Standing Heart Rate Post-Dialysis 78 BPM Temperature Pre-Dialysis 97.8 degF Temperature Post -Dialysis 97.9 degF November 14, 2024 In-Center Hemodialysis Treatment 5170-08-68H06:57:38.000Z 3132-69-12O03:33:38.000Z BP Sitting (Pre-Dialysis) 137/57 mmHg BP Sitting (Post-Dialysis) 143/68 mmHg Concurrent Access: falseAV Fistula Upper Arm (Right) Arterial Sitting Heart Rate Pre-Dialysis 69 BPM Sitting H eart Rate Post-Dialysis 59 BPM Temperature Pre-Dialysis 98.2 degF Temperature Post -Dialysis 98.2 degF November 12, 2024 In-Center Hemodialysis Treatment 2334-65-25C73:50:06.000Z 5892-88-68J95:35:07.000Z BP Sitting (Pre-Dialysis) 140/51 mmHg BP Sitting (Post-Dialysis) 127/41 mmHg Concurrent Access: falseAV Fistula Upper Arm (Right) Arterial Sitting Heart Rate Pre-Dialysis 63 BPM Sitting H eart Rate Post-Dialysis 57 BPM Temperature Pre-Dialysis 98 degF Temperature Post -Dialysis 97.1 degF November 10, 2024 In-Center Hemodialysis Treatment 9379-99-70X80:01:35.000Z 7481-41-87V68:45:35.000Z BP Sitting (Pre-Dialysis) 124/59 mmHg BP Sitting (Post-Dialysis) 143/59 mmHg Concurrent Access: falseAV Fistula Upper Arm (Right) Arterial Sitting Heart Rate Pre-Dialysis 74 BPM BP Standing (Post-Dialysis) 132/54 mmHg Temperature Pre-Dialysis 97.8 degF Sitting Heart Ra te Post-Dialysis 60 BPM Standing Heart Rate Post-Karina lysis 62 BPM Temperature Post-Dialysis 97 .7 degF November 07, 2024 In-Center Hemodialysis Treatment 7860-17-44J91:55:47.000Z 5394-84-75T80:42:47.000Z BP Sitting (Pre-Dialysis) 154/54 mmHg BP Sitting (Post-Dialysis) 145/69 mmHg Concurrent Access: falseAV Fistula Upper Arm (Right) Arterial Sitting Heart Rate Pre-Dialysis 69 BPM Sitting H eart Rate Post-Dialysis 62 BPM Temperature Pre-Dialysis 98.2 degF Temperature Post -Dialysis 98.2 degF November 05, 2024 In-Center Hemodialysis Treatment 2332-87-23S33:58:00.000Z 8249-47-63X43:42:16.000Z BP Sitting (Pre-Dialysis) 154/55 mmHg BP Sitting (Post-Dialysis) 135/57 mmHg Concurrent Access: falseAV Fistula Upper Arm (Right) Arterial Sitting Heart Rate Pre-Dialysis 60 BPM BP Standing (Post-Dialysis) 133/70 mmHg Temperature Pre-Dialysis 96.8 degF Sitting Heart Ra te Post-Dialysis 69 BPM Standing Heart Rate Post-Karina lysis 66 BPM Temperature Post-Dialysis 97 .8 degF November 03, 2024 In-Center Hemodialysis Treatment 7044-66-04G99:17:41.000Z 2738-09-37O08:50:41.000Z BP Sitting (Pre-Dialysis) 147/66 mmHg BP Sitting (Post-Dialysis) 132/44 mmHg Concurrent Access: falseAV Fistula Upper Arm (Right) Arterial Sitting Heart Rate Pre-Dialysis 66 BPM BP Standing (Post-Dialysis) 144/53 mmHg Temperature Pre-Dialysis 97.4 degF Sitting Heart Ra te Post-Dialysis 69 BPM Standing Heart Rate Post-Karina lysis 71 BPM Temperature Post-Dialysis 97 .8 degF October 31, 2024 In-Center Hemodialysis Treatment 2915-62-95C22:32:55.000Z 3138-44-32C31:59:55.000Z BP Sitting (Pre-Dialysis) 181/70 mmHg BP Sitting (Post-Dialysis) 145/58 mmHg Concurrent Access: falseAV Fistula Upper Arm (Right) Arterial Sitting Heart Rate Pre-Dialysis 72 BPM Sitting H eart Rate Post-Dialysis 67 BPM Temperature Pre-Dialysis 97.1 degF Temperature Post -Dialysis 97.2 degF October 29, 2024 In-Center Hemodialysis Treatment 0769-02-81D78:00:23.000Z 3630-59-72E30:46:22.000Z BP Sitting (Pre-Dialysis) 147/53 mmHg BP Sitting (Post-Dialysis) 134/62 mmHg Concurrent Access: falseAV Fistula Upper Arm (Right) Arterial BP Standing (Pre-Dialysis) 158/59 mmHg BP Standing (P ost-Dialysis) 131/56 mmHg Sitting Heart Rate Pre-Dialysis 61 BPM Sitting Heart Rate Post-Dialysis 64 BPM Standing Heart Rate Pre-Dialysis 67 BPM Standing Heart Rate Post-Dialysis 64 BPM Temperature Pre-Dialysis 97.8 degF Temperature Post -Dialysis 97 degF October 27, 2024 In-Center Hemodialysis Treatment 9022-57-15D12:02:51.000Z 4382-80-62Z09:47:52.000Z BP Sitting (Pre-Dialysis) 147/55 mmHg BP Sitting (Post-Dialysis) 123/53 mmHg Concurrent Access: falseAV Fistula Upper Arm (Right) Arterial Sitting Heart Rate Pre-Dialysis 66 BPM Sitting H eart Rate Post-Dialysis 61 BPM Temperature Pre-Dialysis 98.2 degF Temperature Post -Dialysis 98.2 degF October 24, 2024 In-Center Hemodialysis Treatment 9245-77-98A00:28:04.000Z 8562-67-95L67:14:05.000Z BP Sitting (Pre-Dialysis) 151/58 mmHg BP Sitting (Post-Dialysis) 142/50 mmHg Concurrent Access: falseAV Fistula Upper Arm (Right) Arterial Sitting Heart Rate Pre-Dialysis 55 BPM Sitting H eart Rate Post-Dialysis 66 BPM Temperature Pre-Dialysis 97.9 degF Temperature Post -Dialysis 98 degF October 22, 2024 In-Center Hemodialysis Treatment 6966-11-09I59:14:33.000Z 3421-74-75P63:41:33.000Z BP Sitting (Pre-Dialysis) 145/69 mmHg BP Sitting (Post-Dialysis) 144/59 mmHg Concurrent Access: falseAV Fistula Upper Arm (Right) Arterial Sitting Heart Rate Pre-Dialysis 69 BPM Sitting H eart Rate Post-Dialysis 72 BPM Temperature Pre-Dialysis 98.2 degF Temperature Post -Dialysis 98.2 degF October 20, 2024 In-Center Hemodialysis Treatment 3718-13-58N96:10:00.000Z 2896-79-64E36:56:00.000Z BP Sitting (Pre-Dialysis) 135/52 mmHg BP Sitting (Post-Dialysis) 153/61 mmHg Concurrent Access: falseAV Fistula Upper Arm (Right) Arterial BP Standing (Pre-Dialysis) 133/77 mmHg BP Standing (P ost-Dialysis) 151/61 mmHg Sitting Heart Rate Pre-Dialysis 66 BPM Sitting Heart Rate Post-Dialysis 61 BPM Standing Heart Rate Pre-Dialysis 67 BPM Standing Heart Rate Post-Dialysis 59 BPM October 17, 2024 In-Center Hemodialysis Treatment 4392-50-45R78:17:59.000Z 7319-99-38J81:54:59.000Z BP Sitting (Pre-Dialysis) 157/64 mmHg BP Sitting (Post-Dialysis) 117/61 mmHg Concurrent Access: falseAV Fistula Upper Arm (Right) Arterial BP Standing (Pre-Dialysis) 154/66 mmHg BP Standing (P ost-Dialysis) 151/80 mmHg Sitting Heart Rate Pre-Dialysis 67 BPM Sitting Heart Rate Post-Dialysis 76 BPM Standing Heart Rate Pre-Dialysis 66 BPM Standing Heart Rate Post-Dialysis 88 BPM Temperature Pre-Dialysis 98 degF Temperature Post -Dialysis 97.6 degF October 15, 2024 In-Center Hemodialysis Treatment 2987-26-89W14:28:26.000Z 9172-24-51K63:46:26.000Z BP Sitting (Pre-Dialysis) 150/61 mmHg BP Sitting (Post-Dialysis) 136/45 mmHg Concurrent Access: falseAV Fistula Upper Arm (Right) Arterial Sitting Heart Rate Pre-Dialysis 75 BPM Sitting H eart Rate Post-Dialysis 69 BPM Temperature Pre-Dialysis 98.2 degF Temperature Post -Dialysis 97.2 degF October 13, 2024 In-Center Hemodialysis Treatment 4272-53-30Z60:06:54.000Z 9348-08-56D06:37:54.000Z BP Sitting (Pre-Dialysis) 165/69 mmHg BP Sitting (Post-Dialysis) 138/51 mmHg Concurrent Access: falseAV Fistula Upper Arm (Right) Arterial Sitting Heart Rate Pre-Dialysis 69 BPM Sitting H eart Rate Post-Dialysis 68 BPM Temperature Pre-Dialysis 98.2 degF Temperature Post -Dialysis 97.6 degF October 10, 2024 In-Center Hemodialysis Treatment 8414-41-60P77:59:26.000Z 7195-66-29H64:45:26.000Z BP Sitting (Pre-Dialysis) 138/51 mmHg BP Sitting (Post-Dialysis) 151/57 mmHg Concurrent Access: falseAV Fistula Upper Arm (Right) Arterial Sitting Heart Rate Pre-Dialysis 62 BPM Sitting H eart Rate Post-Dialysis 65 BPM Temperature Pre-Dialysis 97.2 degF Temperature Post -Dialysis 97.5 degF October 08, 2024 In-Center Hemodialysis Treatment 4039-34-15O75:08:18.000Z 8901-70-63D80:49:00.000Z BP Sitting (Pre-Dialysis) 139/56 mmHg BP Sitting (Post-Dialysis) 135/57 mmHg Concurrent Access: falseAV Fistula Upper Arm (Right) Arterial Sitting Heart Rate Pre-Dialysis 63 BPM Sitting H eart Rate Post-Dialysis 72 BPM Temperature Pre-Dialysis 97.3 degF Temperature Post -Dialysis 98.2 degF October 06, 2024 In-Center Hemodialysis Treatment 9089-39-64Z50:01:00.000Z 0321-43-94P24:48:46.000Z BP Sitting (Pre-Dialysis) 151/52 mmHg BP Sitting (Post-Dialysis) 158/70 mmHg Concurrent Access: falseAV Fistula Upper Arm (Right) Arterial Sitting Heart Rate Pre-Dialysis 69 BPM Sitting H eart Rate Post-Dialysis 76 BPM Temperature Pre-Dialysis 97.6 degF Temperature Post -Dialysis 97.9 degF October 03, 2024 In-Center Hemodialysis Treatment 9053-13-26M72:50:00.000Z 4409-55-55Q85:38:00.000Z BP Sitting (Pre-Dialysis) 128/48 mmHg BP Sitting (Post-Dialysis) 141/60 mmHg Concurrent Access: falseAV Fistula Upper Arm (Right) Arterial Sitting Heart Rate Pre-Dialysis 67 BPM Sitting H eart Rate Post-Dialysis 71 BPM Temperature Pre-Dialysis 98.2 degF Temperature Post -Dialysis 98.2 degF October 01, 2024 In-Center Hemodialysis Treatment 6806-09-47W34:02:40.000Z 4912-58-62W69:51:40.000Z BP Sitting (Pre-Dialysis) 136/61 mmHg BP Sitting (Post-Dialysis) 141/60 mmHg Concurrent Access: falseAV Fistula Upper Arm (Right) Arterial Sitting Heart Rate Pre-Dialysis 60 BPM Sitting H eart Rate Post-Dialysis 64 BPM Temperature Pre-Dialysis 98 degF Temperature Post -Dialysis 98.7 degF September 29, 2024 In-Center Hemodialysis Treatment 2715-38-20F20:08:07.000Z 9134-41-05J95:56:07.000Z BP Sitting (Pre-Dialysis) 146/59 mmHg BP Sitting (Post-Dialysis) 143/57 mmHg Concurrent Access: falseAV Fistula Upper Arm (Right) Arterial Sitting Heart Rate Pre-Dialysis 62 BPM Sitting H eart Rate Post-Dialysis 63 BPM Temperature Pre-Dialysis 97.9 degF Temperature Post -Dialysis 97.2 degF September 26, 2024 In-Center Hemodialysis Treatment 0606-61-73K41:07:40.000Z 3516-99-86K90:42:39.000Z BP Sitting (Pre-Dialysis) 123/54 mmHg BP Sitting (Post-Dialysis) 131/57 mmHg Concurrent Access: falseAV Fistula Upper Arm (Right) Arterial Sitting Heart Rate Pre-Dialysis 55 BPM Sitting H eart Rate Post-Dialysis 67 BPM Temperature Pre-Dialysis 97.6 degF Temperature Post -Dialysis 98.2 degF September 24, 2024 In-Center Hemodialysis Treatment 8553-97-49I30:02:45.000Z 6204-84-87K07:39:45.000Z BP Sitting (Pre-Dialysis) 166/67 mmHg BP Sitting (Post-Dialysis) 145/65 mmHg Concurrent Access: falseAV Fistula Upper Arm (Right) Arterial Sitting Heart Rate Pre-Dialysis 69 BPM Sitting H eart Rate Post-Dialysis 72 BPM Temperature Pre-Dialysis 98.2 degF Temperature Post -Dialysis 98.2 degF September 22, 2024 In-Center Hemodialysis Treatment 2663-48-28J13:16:00.000Z 0150-02-18Z39:04:13.000Z BP Sitting (Pre-Dialysis) 140/56 mmHg BP Sitting (Post-Dialysis) 121/52 mmHg Concurrent Access: falseAV Fistula Upper Arm (Right) Arterial Sitting Heart Rate Pre-Dialysis 61 BPM Sitting H eart Rate Post-Dialysis 61 BPM Temperature Pre-Dialysis 97 degF Temperature Post -Dialysis 97.1 degF September 19, 2024 In-Center Hemodialysis Treatment 6265-64-36E96:14:51.000Z 1153-28-31V37:02:51.000Z BP Sitting (Pre-Dialysis) 123/52 mmHg BP Sitting (Post-Dialysis) 122/42 mmHg Concurrent Access: falseAV Fistula Upper Arm (Right) Arterial Sitting Heart Rate Pre-Dialysis 65 BPM Sitting H eart Rate Post-Dialysis 57 BPM Temperature Pre-Dialysis 98 degF Temperature Post -Dialysis 97.2 degF September 17, 2024 In-Center Hemodialysis Treatment 5781-55-20G46:25:00.000Z 2405-93-94F43:12:18.000Z BP Sitting (Pre-Dialysis) 117/42 mmHg BP Sitting (Post-Dialysis) 110/51 mmHg Concurrent Access: falseAV Fistula Upper Arm (Right) Arterial Sitting Heart Rate Pre-Dialysis 57 BPM Sitting H eart Rate Post-Dialysis 63 BPM Temperature Pre-Dialysis 97.6 degF Temperature Post -Dialysis 97.3 degF September 15, 2024 In-Center Hemodialysis Treatment 7653-48-92U49:11:46.000Z 4300-65-81H30:19:46.000Z BP Sitting (Pre-Dialysis) 97/49 mmHg BP Sitting (Post-Dialysis) 117/46 mmHg Concurrent Access: falseAV Fistula Upper Arm (Right) Arterial Sitting Heart Rate Pre-Dialysis 50 BPM Sitting H eart Rate Post-Dialysis 53 BPM Temperature Pre-Dialysis 97 degF Temperature Post -Dialysis 97.5 degF September 12, 2024 In-Center Hemodialysis Treatment 9856-36-73N61:31:00.000Z 7283-50-16T23:33:14.000Z BP Sitting (Pre-Dialysis) 138/58 mmHg BP Sitting (Post-Dialysis) 131/51 mmHg Concurrent Access: falseAV Fistula Upper Arm (Right) Arterial Sitting Heart Rate Pre-Dialysis 78 BPM Sitting H eart Rate Post-Dialysis 57 BPM Temperature Pre-Dialysis 97.6 degF Temperature Post -Dialysis 98.2 degF September 10, 2024 In-Center Hemodialysis Treatment 3465-02-32I64:18:00.000Z 0454-10-89E73:27:41.000Z BP Sitting (Pre-Dialysis) 129/28 mmHg BP Sitting (Post-Dialysis) 116/47 mmHg Concurrent Access: falseAV Fistula Upper Arm (Right) Arterial Sitting Heart Rate Pre-Dialysis 69 BPM Sitting H eart Rate Post-Dialysis 54 BPM Temperature Pre-Dialysis 97.4 degF Temperature Post -Dialysis 97.8 degF September 08, 2024 In-Center Hemodialysis Treatment 3355-63-13F48:15:09.000Z 3538-94-79R12:02:08.000Z BP Sitting (Pre-Dialysis) 126/79 mmHg BP Sitting (Post-Dialysis) 132/61 mmHg Concurrent Access: falseAV Fistula Upper Arm (Right) Arterial Sitting Heart Rate Pre-Dialysis 79 BPM Sitting H eart Rate Post-Dialysis 55 BPM Temperature Pre-Dialysis 98.2 degF Temperature Post -Dialysis 98.2 degF September 05, 2024 In-Center Hemodialysis Treatment 0399-77-41Q16:23:20.000Z 2980-23-84D03:38:20.000Z BP Sitting (Pre-Dialysis) 108/45 mmHg BP Sitting (Post-Dialysis) 114/49 mmHg Concurrent Access: falseAV Fistula Upper Arm (Right) Arterial Sitting Heart Rate Pre-Dialysis 74 BPM Sitting H eart Rate Post-Dialysis 59 BPM Temperature Pre-Dialysis 98 degF Temperature Post -Dialysis 98 degF September 03, 2024 In-Center Hemodialysis Treatment 2411-69-01S41:00:00.000Z 6907-08-29P52:43:48.000Z BP Sitting (Pre-Dialysis) 135/58 mmHg BP Sitting (Post-Dialysis) 136/68 mmHg Concurrent Access: falseAV Fistula Upper Arm (Right) Arterial Sitting Heart Rate Pre-Dialysis 78 BPM Sitting H eart Rate Post-Dialysis 68 BPM Temperature Pre-Dialysis 98.2 degF Temperature Post -Dialysis 98.2 degF September 01, 2024 In-Center Hemodialysis Treatment 7648-11-43N22:16:15.000Z 1044-33-95M57:32:14.000Z BP Sitting (Pre-Dialysis) 116/26 mmHg BP Sitting (Post-Dialysis) 114/47 mmHg Concurrent Access: falseAV Fistula Upper Arm (Right) Arterial Sitting Heart Rate Pre-Dialysis 63 BPM Sitting H eart Rate Post-Dialysis 69 BPM Temperature Pre-Dialysis 97.6 degF Temperature Post -Dialysis 98 degF August 27, 2024 In-Center Hemodialysis Treatment 4536-68-02F77:09:00.000Z 2005-05-65H46:30:32.000Z BP Sitting (Pre-Dialysis) 139/57 mmHg BP Sitting (Post-Dialysis) 119/51 mmHg Concurrent Access: falseAV Fistula Upper Arm (Right) Arterial Sitting Heart Rate Pre-Dialysis 65 BPM Sitting H eart Rate Post-Dialysis 63 BPM Temperature Pre-Dialysis 97.6 degF Temperature Post -Dialysis 98 degF August 25, 2024 In-Center Hemodialysis Treatment 8614-87-69A62:55:00.000Z 4503-63-48S24:04:00.000Z BP Sitting (Pre-Dialysis) 136/58 mmHg BP Sitting (Post-Dialysis) 133/54 mmHg Concurrent Access: falseAV Fistula Upper Arm (Right) Arterial Sitting Heart Rate Pre-Dialysis 63 BPM Sitting H eart Rate Post-Dialysis 73 BPM Temperature Pre-Dialysis 97.2 degF Temperature Post -Dialysis 97.4 degF August 22, 2024 In-Center Hemodialysis Treatment 9496-32-68T27:59:22.000Z 6948-60-40R16:02:22.000Z BP Sitting (Pre-Dialysis) 148/63 mmHg BP Sitting (Post-Dialysis) 110/53 mmHg Concurrent Access: falseAV Fistula Upper Arm (Right) Arterial Sitting Heart Rate Pre-Dialysis 70 BPM Sitting H eart Rate Post-Dialysis 74 BPM Temperature Pre-Dialysis 97.2 degF Temperature Post -Dialysis 98.2 degF August 20, 2024 In-Center Hemodialysis Treatment 1451-65-37Y10:03:50.000Z 7406-47-79L24:59:50.000Z BP Sitting (Pre-Dialysis) 141/58 mmHg BP Sitting (Post-Dialysis) 123/59 mmHg Concurrent Access: falseAV Fistula Upper Arm (Right) Arterial Sitting Heart Rate Pre-Dialysis 84 BPM Sitting H eart Rate Post-Dialysis 78 BPM Temperature Pre-Dialysis 97.2 degF Temperature Post -Dialysis 97.2 degF August 18, 2024 In-Center Hemodialysis Treatment 3667-65-35M00:18:00.000Z 8172-66-70F94:28:39.000Z BP Sitting (Pre-Dialysis) 121/51 mmHg BP Sitting (Post-Dialysis) 117/56 mmHg Concurrent Access: falseAV Fistula Upper Arm (Right) Arterial Sitting Heart Rate Pre-Dialysis 70 BPM Sitting H eart Rate Post-Dialysis 77 BPM Temperature Pre-Dialysis 97.3 degF Temperature Post -Dialysis 97.8 degF July 30, 2024 In-Center Hemodialysis Treatment 5838-91-11Y80:09:00.000Z 2767-80-45N86:27:37.000Z BP Sitting (Pre-Dialysis) 91/30 mmHg BP Sitting (Post-Dialysis) 101/38 mmHg Concurrent Access: falseAV Fistula Upper Arm (Right) Arterial Sitting Heart Rate Pre-Dialysis 75 BPM Sitting H eart Rate Post-Dialysis 78 BPM Temperature Pre-Dialysis 97.8 degF Temperature Post -Dialysis 98.6 degF July 28, 2024 In-Center Hemodialysis Treatment 4609-47-56F10:23:05.000Z 4064-22-09Z24:38:04.000Z BP Sitting (Pre-Dialysis) 107/48 mmHg BP Sitting (Post-Dialysis) 108/47 mmHg Concurrent Access: falseAV Fistula Upper Arm (Right) Arterial BP Standing (Pre-Dialysis) 113/37 mmHg Sitti ng Heart Rate Post-Dialysis 75 BPM Sitting Heart Rate Pre-Dialysis 68 BPM Temperatu re Post-Dialysis 97.2 degF Standing Heart Rate Pre-Dialysis 70 BPM Temperature Pre-Dialysis 97.9 degF July 25, 2024 In-Center Hemodialysis Treatment 6814-72-62R22:49:16.000Z 0715-14-89O29:47:17.000Z BP Sitting (Pre-Dialysis) 100/59 mmHg BP Sitting (Post-Dialysis) 118/54 mmHg Concurrent Access: falseAV Fistula Upper Arm (Right) Arterial Sitting Heart Rate Pre-Dialysis 69 BPM Sitting H eart Rate Post-Dialysis 59 BPM Temperature Pre-Dialysis 98.2 degF Temperature Post -Dialysis 98.2 degF July 23, 2024 In-Center Hemodialysis Treatment [id number]:39:00.000Z 0547-12-62E36:48:43.000Z BP Sitting (Pre-Dialysis) 133/48 mmHg BP Sitting (Post-Dialysis) 114/69 mmHg Concurrent Access: falseAV Fistula Upper Arm (Right) Arterial BP Standing (Pre-Dialysis) 115/34 mmHg BP Standing (P ost-Dialysis) 112/59 mmHg Sitting Heart Rate Pre-Dialysis 60 BPM Sitting Heart Rate Post-Dialysis 69 BPM Standing Heart Rate Pre-Dialysis 67 BPM Standing Heart Rate Post-Dialysis 62 BPM Temperature Pre-Dialysis 97.2 degF Temperature Post -Dialysis 98.2 degF July 21, 2024 In-Center Hemodialysis Treatment [id number]:50:11.000Z [id number]:07:12.000Z BP Sitting (Pre-Dialysis) 136/44 mmHg BP Sitting (Post-Dialysis) 113/48 mmHg Concurrent Access: falseAV Fistula Upper Arm (Right) Arterial Sitting Heart Rate Pre-Dialysis 58 BPM BP Standi ng (Post-Dialysis) 115/53 mmHg Temperature Pre-Dialysis 98 degF Sitting Heart Ra te Post-Dialysis 66 BPM Standing Heart Rate Post-Karina lysis 66 BPM Temperature Post-Dialysis 97 degF July 18, 2024 In-Center Hemodialysis Treatment 3047-80-89G58:24:00.000Z 1282-79-72Y35:28:22.000Z BP Sitting (Pre-Dialysis) 133/47 mmHg BP Sitting (Post-Dialysis) 137/50 mmHg Concurrent Access: falseAV Fistula Upper Arm (Right) Arterial BP Standing (Pre-Dialysis) 135/61 mmHg BP Standing (P ost-Dialysis) 135/47 mmHg Sitting Heart Rate Pre-Dialysis 60 BPM Sitting Heart Rate Post-Dialysis 72 BPM Standing Heart Rate Pre-Dialysis 66 BPM Standing Heart Rate Post-Dialysis 71 BPM Temperature Pre-Dialysis 97.2 degF Temperature Post -Dialysis 97.3 degF July 16, 2024 In-Center Hemodialysis Treatment 9031-26-00Z71:42:50.000Z 1444-00-51N74:58:51.000Z BP Sitting (Pre-Dialysis) 128/50 mmHg BP Sitting (Post-Dialysis) 143/59 mmHg Concurrent Access: falseAV Fistula Upper Arm (Right) Arterial BP Standing (Pre-Dialysis) 136/30 mmHg BP Standing (P ost-Dialysis) 137/56 mmHg Sitting Heart Rate Pre-Dialysis 64 BPM Sitting Heart Rate Post-Dialysis 70 BPM Standing Heart Rate Pre-Dialysis 61 BPM Standing Heart Rate Post-Dialysis 77 BPM Temperature Pre-Dialysis 97.8 degF Temperature Post -Dialysis 97.8 degF July 11, 2024 In-Center Hemodialysis Treatment 9679-03-22L93:43:00.000Z 0614-61-32Q65:45:00.000Z BP Sitting (Pre-Dialysis) 143/72 mmHg BP Sitting (Post-Dialysis) 132/59 mmHg Concurrent Access: falseAV Fistula Upper Arm (Right) Arterial BP Standing (Pre-Dialysis) 125/64 mmHg BP Standing (P ost-Dialysis) 125/59 mmHg Sitting Heart Rate Pre-Dialysis 73 BPM Sitting Heart Rate Post-Dialysis 82 BPM Standing Heart Rate Pre-Dialysis 70 BPM Standing Heart Rate Post-Dialysis 84 BPM Temperature Pre-Dialysis 97.3 degF Temperature Post -Dialysis 97.2 degF July 08, 2024 In-Center Hemodialysis Treatment 7829-52-31K26:54:00.000Z 2466-66-73P55:57:41.000Z BP Sitting (Pre-Dialysis) 152/70 mmHg BP Sitting (Post-Dialysis) 158/67 mmHg Concurrent Access: falseAV Fistula Upper Arm (Right) Arterial BP Standing (Pre-Dialysis) 148/66 mmHg BP Standing (P ost-Dialysis) 134/66 mmHg Sitting Heart Rate Pre-Dialysis 66 BPM Sitting Heart Rate Post-Dialysis 74 BPM Standing Heart Rate Pre-Dialysis 67 BPM Standing Heart Rate Post-Dialysis 78 BPM Temperature Pre-Dialysis 98.1 degF Temperature Post -Dialysis 97.3 degF July 06, 2024 In-Center Hemodialysis Treatment 3024-52-96U37:43:09.000Z 9463-71-56F19:59:09.000Z BP Sitting (Pre-Dialysis) 148/63 mmHg BP Sitting (Post-Dialysis) 135/66 mmHg Concurrent Access: falseAV Fistula Upper Arm (Right) Arterial BP Standing (Pre-Dialysis) 144/57 mmHg BP Standing (P ost-Dialysis) 136/63 mmHg Sitting Heart Rate Pre-Dialysis 62 BPM Sitting Heart Rate Post-Dialysis 82 BPM Standing Heart Rate Pre-Dialysis 68 BPM Standing Heart Rate Post-Dialysis 80 BPM Temperature Pre-Dialysis 97.8 degF Temperature Post -Dialysis 97.3 degF July 04, 2024 In-Center Hemodialysis Treatment 3720-31-03R48:35:37.000Z 6467-02-99E01:49:36.000Z BP Sitting (Pre-Dialysis) 148/64 mmHg BP Sitting (Post-Dialysis) 127/63 mmHg Concurrent Access: falseAV Fistula Upper Arm (Right) Arterial BP Standing (Pre-Dialysis) 155/62 mmHg BP Standing (P ost-Dialysis) 118/54 mmHg Sitting Heart Rate Pre-Dialysis 60 BPM Sitting Heart Rate Post-Dialysis 73 BPM Standing Heart Rate Pre-Dialysis 65 BPM Standing Heart Rate Post-Dialysis 78 BPM Temperature Pre-Dialysis 97.3 degF Temperature Post -Dialysis 98.1 degF July 01, 2024 In-Center Hemodialysis Treatment 0488-51-14E89:42:48.000Z 7175-38-68I73:37:48.000Z BP Sitting (Pre-Dialysis) 152/75 mmHg BP Sitting (Post-Dialysis) 143/59 mmHg Concurrent Access: falseAV Fistula Upper Arm (Right) Arterial BP Standing (Pre-Dialysis) 163/69 mmHg Sitti ng Heart Rate Post-Dialysis 75 BPM Sitting Heart Rate Pre-Dialysis 65 BPM Temperatu re Post-Dialysis 97.3 degF Standing Heart Rate Pre-Dialysis 73 BPM Temperature Pre-Dialysis 97.8 degF June 29, 2024 In-Center Hemodialysis Treatment 3021-26-97V86:51:15.000Z 8486-93-68W82:46:16.000Z BP Sitting (Pre-Dialysis) 159/67 mmHg BP Sitting (Post-Dialysis) 146/58 mmHg Concurrent Access: falseAV Fistula Upper Arm (Right) Arterial Sitting Heart Rate Pre-Dialysis 66 BPM Sitting H eart Rate Post-Dialysis 82 BPM Temperature Pre-Dialysis 97.9 degF Temperature Post -Dialysis 97.9 degF June 27, 2024 In-Center Hemodialysis Treatment 1638-75-07R88:49:43.000Z 3180-82-49S95:47:43.000Z BP Sitting (Pre-Dialysis) 119/58 mmHg BP Sitting (Post-Dialysis) 140/59 mmHg Concurrent Access: falseAV Fistula Upper Arm (Right) Arterial BP Standing (Pre-Dialysis) 141/63 mmHg Sitti ng Heart Rate Post-Dialysis 75 BPM Sitting Heart Rate Pre-Dialysis 68 BPM Temperatu re Post-Dialysis 97.3 degF Standing Heart Rate Pre-Dialysis 71 BPM Temperature Pre-Dialysis 97.8 degF June 25, 2024 In-Center Hemodialysis Treatment 2266-39-04I62:34:10.000Z 1828-47-70L64:51:10.000Z BP Sitting (Pre-Dialysis) 157/60 mmHg BP Sitting (Post-Dialysis) 131/66 mmHg Concurrent Access: falseAV Fistula Upper Arm (Right) Arterial BP Standing (Pre-Dialysis) 149/63 mmHg Sitti ng Heart Rate Post-Dialysis 90 BPM Sitting Heart Rate Pre-Dialysis 61 BPM Temperatu re Post-Dialysis 97.4 degF Standing Heart Rate Pre-Dialysis 61 BPM Temperature Pre-Dialysis 97.3 degF June 23, 2024 In-Center Hemodialysis Treatment 8834-89-31H70:36:38.000Z 4027-00-15H35:54:39.000Z BP Sitting (Pre-Dialysis) 142/64 mmHg BP Sitting (Post-Dialysis) 143/64 mmHg Concurrent Access: falseAV Fistula Upper Arm (Right) Arterial BP Standing (Pre-Dialysis) 156/64 mmHg BP Standing (P ost-Dialysis) 153/61 mmHg Sitting Heart Rate Pre-Dialysis 63 BPM Sitting Heart Rate Post-Dialysis 84 BPM Standing Heart Rate Pre-Dialysis 64 BPM Standing Heart Rate Post-Dialysis 82 BPM Temperature Pre-Dialysis 97.8 degF Temperature Post -Dialysis 97.3 degF June 20, 2024 In-Center Hemodialysis Treatment 4615-91-25P68:14:49.000Z 3730-04-87J20:30:50.000Z BP Sitting (Pre-Dialysis) 142/62 mmHg BP Sitting (Post-Dialysis) 140/66 mmHg Concurrent Access: falseAV Fistula Upper Arm (Right) Arterial BP Standing (Pre-Dialysis) 142/63 mmHg BP Standing (P ost-Dialysis) 124/57 mmHg Sitting Heart Rate Pre-Dialysis 58 BPM Sitting Heart Rate Post-Dialysis 86 BPM Standing Heart Rate Pre-Dialysis 79 BPM Standing Heart Rate Post-Dialysis 85 BPM Temperature Pre-Dialysis 97.6 degF Temperature Post -Dialysis 98.2 degF June 18, 2024 In-Center Hemodialysis Treatment 5369-48-62D41:48:00.000Z 2974-96-82C04:01:17.000Z BP Sitting (Pre-Dialysis) 156/63 mmHg BP Sitting (Post-Dialysis) 132/62 mmHg Concurrent Access: falseAV Fistula Upper Arm (Right) Arterial BP Standing (Pre-Dialysis) 146/71 mmHg BP Standing (P ost-Dialysis) 153/69 mmHg Sitting Heart Rate Pre-Dialysis 70 BPM Sitting Heart Rate Post-Dialysis 77 BPM Standing Heart Rate Pre-Dialysis 81 BPM Standing Heart Rate Post-Dialysis 83 BPM Temperature Pre-Dialysis 97.3 degF Temperature Post -Dialysis 98 degF June 16, 2024 In-Center Hemodialysis Treatment 0266-13-10Y81:32:45.000Z 4959-44-44W12:48:45.000Z BP Sitting (Pre-Dialysis) 126/55 mmHg BP Sitting (Post-Dialysis) 134/66 mmHg Concurrent Access: falseAV Fistula Upper Arm (Right) Arterial BP Standing (Pre-Dialysis) 136/48 mmHg BP Standing (P ost-Dialysis) 128/78 mmHg Sitting Heart Rate Pre-Dialysis 60 BPM Sitting Heart Rate Post-Dialysis 82 BPM Standing Heart Rate Pre-Dialysis 69 BPM Standing Heart Rate Post-Dialysis 88 BPM Temperature Pre-Dialysis 97.8 degF Temperature Post -Dialysis 97.3 degF June 13, 2024 In-Center Hemodialysis Treatment 4595-83-90T26:37:48.000Z 7667-71-76E13:52:47.000Z BP Sitting (Pre-Dialysis) 119/57 mmHg BP Sitting (Post-Dialysis) 153/63 mmHg Concurrent Access: falseAV Fistula Upper Arm (Right) Arterial BP Standing (Pre-Dialysis) 126/57 mmHg BP Standing (P ost-Dialysis) 153/70 mmHg Sitting Heart Rate Pre-Dialysis 59 BPM Sitting Heart Rate Post-Dialysis 70 BPM Standing Heart Rate Pre-Dialysis 61 BPM Standing Heart Rate Post-Dialysis 77 BPM Temperature Pre-Dialysis 97.5 degF Temperature Post -Dialysis 98.2 degF June 11, 2024 In-Center Hemodialysis Treatment 5901-03-62Q45:36:42.000Z 8126-02-36U14:54:43.000Z BP Sitting (Pre-Dialysis) 141/65 mmHg BP Sitting (Post-Dialysis) 166/78 mmHg Concurrent Access: falseAV Fistula Upper Arm (Right) Arterial BP Standing (Pre-Dialysis) 155/67 mmHg Sitti ng Heart Rate Post-Dialysis 86 BPM Sitting Heart Rate Pre-Dialysis 64 BPM Temperatu re Post-Dialysis 97.4 degF Standing Heart Rate Pre-Dialysis 70 BPM Temperature Pre-Dialysis 97.8 degF June 09, 2024 In-Center Hemodialysis Treatment [id number]:40:34.000Z 6207-92-67E64:05:35.000Z BP Sitting (Pre-Dialysis) 118/64 mmHg BP Sitting (Post-Dialysis) 161/68 mmHg Concurrent Access: falseAV Fistula Upper Arm (Right) Arterial Sitting Heart Rate Pre-Dialysis 63 BPM BP Standing (Post-Dialysis) 158/77 mmHg Temperature Pre-Dialysis 97.8 degF Sitting Heart Ra te Post-Dialysis 75 BPM Standing Heart Rate Post-Karina lysis 80 BPM Temperature Post-Dialysis 97 .8 degF June 06, 2024 In-Center Hemodialysis Treatment 0184-34-12R91:37:24.000Z 8817-65-05I84:54:24.000Z BP Sitting (Pre-Dialysis) 147/63 mmHg BP Sitting (Post-Dialysis) 141/60 mmHg Concurrent Access: falseAV Fistula Upper Arm (Right) Arterial BP Standing (Pre-Dialysis) 161/68 mmHg Sitti ng Heart Rate Post-Dialysis 80 BPM Sitting Heart Rate Pre-Dialysis 67 BPM Temperatu re Post-Dialysis 98.6 degF Standing Heart Rate Pre-Dialysis 76 BPM Temperature Pre-Dialysis 97.3 degF June 02, 2024 In-Center Hemodialysis Treatment 5903-47-95M10:12:59.000Z 5740-42-65S43:32:09.000Z BP Sitting (Pre-Dialysis) 161/100 mmHg BP Sitting (Post-Dialysis) 203/85 mmHg Concurrent Access: falseAV Fistula Upper Arm (Right) Arterial BP Standing (Pre-Dialysis) 161/80 mmHg Sitti ng Heart Rate Post-Dialysis 61 BPM Sitting Heart Rate Pre-Dialysis 74 BPM Temperatu re Post-Dialysis 97.4 degF Standing Heart Rate Pre-Dialysis 72 BPM Temperature Pre-Dialysis 97.6 degF May 30, 2024 In-Center Hemodialysis Treatment 9253-16-19L28:11:45.000Z 9391-46-77J52:28:50.000Z BP Sitting (Pre-Dialysis) 169/66 mmHg BP Sitting (Post-Dialysis) 169/87 mmHg Concurrent Access: falseAV Fistula Upper Arm (Right) Arterial BP Standing (Pre-Dialysis) 148/57 mmHg BP Standing (P ost-Dialysis) 174/68 mmHg Sitting Heart Rate Pre-Dialysis 63 BPM Sitting Heart Rate Post-Dialysis 85 BPM Standing Heart Rate Pre-Dialysis 69 BPM Standing Heart Rate Post-Dialysis 88 BPM Temperature Pre-Dialysis 97.8 degF Temperature Post -Dialysis 97.2 degF May 28, 2024 In-Center Hemodialysis Treatment 0419-34-66N21:05:31.000Z 2062-19-95Z23:23:26.000Z BP Sitting (Pre-Dialysis) 154/107 mmHg BP Sitting (Post-Dialysis) 189/78 mmHg Concurrent Access: falseAV Fistula Upper Arm (Right) Arterial BP Standing (Pre-Dialysis) 181/74 mmHg Sitti ng Heart Rate Post-Dialysis 54 BPM Sitting Heart Rate Pre-Dialysis 62 BPM Temperatu re Post-Dialysis 97.8 degF Standing Heart Rate Pre-Dialysis 76 BPM Temperature Pre-Dialysis 98.1 degF May 26, 2024 In-Center Hemodialysis Treatment 7030-80-86J04:26:05.000Z 0757-82-69I83:51:55.000Z BP Sitting (Pre-Dialysis) 180/80 mmHg BP Sitting (Post-Dialysis) 163/72 mmHg Concurrent Access: falseAV Fistula Upper Arm (Right) Arterial BP Standing (Pre-Dialysis) 173/73 mmHg Sitti ng Heart Rate Post-Dialysis 69 BPM Sitting Heart Rate Pre-Dialysis 67 BPM Temperatu re Post-Dialysis 97.2 degF Standing Heart Rate Pre-Dialysis 73 BPM Temperature Pre-Dialysis 98.4 degF May 23, 2024 In-Center Hemodialysis Treatment 4446-74-13R23:53:29.000Z 0766-00-89V66:15:34.000Z BP Sitting (Pre-Dialysis) 191/72 mmHg BP Sitting (Post-Dialysis) 169/75 mmHg Concurrent Access: falseAV Fistula Upper Arm (Right) Arterial BP Standing (Pre-Dialysis) 182/69 mmHg Sitti ng Heart Rate Post-Dialysis 69 BPM Sitting Heart Rate Pre-Dialysis 57 BPM Temperatu re Post-Dialysis 97.4 degF Standing Heart Rate Pre-Dialysis 53 BPM Temperature Pre-Dialysis 97.4 degF May 21, 2024 In-Center Hemodialysis Treatment 0590-88-91J51:13:22.000Z 5199-26-79Z89:32:31.000Z BP Sitting (Pre-Dialysis) 169/80 mmHg BP Sitting (Post-Dialysis) 189/75 mmHg Concurrent Access: falseAV Fistula Upper Arm (Right) Arterial BP Standing (Pre-Dialysis) 172/79 mmHg Sitti ng Heart Rate Post-Dialysis 69 BPM Sitting Heart Rate Pre-Dialysis 62 BPM Temperatu re Post-Dialysis 97.2 degF Standing Heart Rate Pre-Dialysis 61 BPM Temperature Pre-Dialysis 97.2 degF May 19, 2024 In-Center Hemodialysis Treatment 8533-36-65E67:23:00.000Z 5755-38-33G52:35:00.000Z BP Sitting (Pre-Dialysis) 156/67 mmHg BP Sitting (Post-Dialysis) 165/68 mmHg Concurrent Access: falseAV Fistula Upper Arm (Right) Arterial BP Standing (Pre-Dialysis) 161/75 mmHg Sitti ng Heart Rate Post-Dialysis 58 BPM Sitting Heart Rate Pre-Dialysis 52 BPM Temperatu re Post-Dialysis 97.4 degF Standing Heart Rate Pre-Dialysis 62 BPM Temperature Pre-Dialysis 98.1 degF May 16, 2024 In-Center Hemodialysis Treatment 9326-55-38V26:03:12.000Z 4255-35-45Y07:57:22.000Z BP Sitting (Pre-Dialysis) 177/81 mmHg BP Sitting (Post-Dialysis) 166/72 mmHg Concurrent Access: falseAV Fistula Upper Arm (Right) Arterial BP Standing (Pre-Dialysis) 181/66 mmHg Sitti ng Heart Rate Post-Dialysis 61 BPM Sitting Heart Rate Pre-Dialysis 63 BPM Temperatu re Post-Dialysis 97.3 degF Standing Heart Rate Pre-Dialysis 66 BPM Temperature Pre-Dialysis 98.6 degF May 14, 2024 In-Center Hemodialysis Treatment 1722-18-50G92:27:23.000Z 2017-24-60O91:44:03.000Z BP Sitting (Pre-Dialysis) 163/64 mmHg BP Sitting (Post-Dialysis) 188/74 mmHg Concurrent Access: falseAV Fistula Upper Arm (Right) Arterial BP Standing (Pre-Dialysis) 163/64 mmHg Sitti ng Heart Rate Post-Dialysis 52 BPM Sitting Heart Rate Pre-Dialysis 59 BPM Temperatu re Post-Dialysis 97.2 degF Standing Heart Rate Pre-Dialysis 59 BPM Temperature Pre-Dialysis 97.2 degF May 12, 2024 In-Center Hemodialysis Treatment 4915-35-86Z71:16:50.000Z 5045-66-97S31:39:44.000Z BP Sitting (Pre-Dialysis) 178/65 mmHg BP Sitting (Post-Dialysis) 166/65 mmHg Concurrent Access: falseAV Fistula Upper Arm (Right) Arterial BP Standing (Pre-Dialysis) 152/62 mmHg Sitti ng Heart Rate Post-Dialysis 63 BPM Sitting Heart Rate Pre-Dialysis 60 BPM Temperatu re Post-Dialysis 97.2 degF Standing Heart Rate Pre-Dialysis 58 BPM Temperature Pre-Dialysis 97.5 degF May 09, 2024 In-Center Hemodialysis Treatment 4554-16-68D88:29:00.000Z 9224-81-16P56:52:11.000Z BP Sitting (Pre-Dialysis) 156/71 mmHg BP Sitting (Post-Dialysis) 150/54 mmHg Concurrent Access: falseAV Fistula Upper Arm (Right) Arterial BP Standing (Pre-Dialysis) 153/59 mmHg Sitting Heart Rate Post-Dialysis 57 BPM Sitting Heart Rate Pre-Dialysis 53 BPM Temperatu re Post-Dialysis 97 degF Standing Heart Rate Pre-Dialysis 54 BPM Temperature Pre-Dialysis 97.8 degF May 07, 2024 In-Center Hemodialysis Treatment [id number]:19:54.000Z 8653-08-09H29:44:11.000Z BP Sitting (Pre-Dialysis) 175/72 mmHg BP Sitting (Post-Dialysis) 175/68 mmHg Concurrent Access: falseAV Fistula Upper Arm (Right) Arterial BP Standing (Pre-Dialysis) 170/70 mmHg Sitti ng Heart Rate Post-Dialysis 58 BPM Sitting Heart Rate Pre-Dialysis 56 BPM Temperatu re Post-Dialysis 97.6 degF Standing Heart Rate Pre-Dialysis 55 BPM Temperature Pre-Dialysis 97.2 degF May 05, 2024 In-Center Hemodialysis Treatment 2477-88-65J02:15:37.000Z 6977-60-93N53:28:57.000Z BP Sitting (Pre-Dialysis) 170/56 mmHg BP Sitting (Post-Dialysis) 165/82 mmHg Concurrent Access: falseAV Fistula Upper Arm (Right) Arterial BP Standing (Pre-Dialysis) 163/55 mmHg Sitti ng Heart Rate Post-Dialysis 55 BPM Sitting Heart Rate Pre-Dialysis 55 BPM Temperatu re Post-Dialysis 97.5 degF Standing Heart Rate Pre-Dialysis 59 BPM Temperature Pre-Dialysis 97.2 degF May 02, 2024 In-Center Hemodialysis Treatment 8529-14-17I37:16:00.000Z 5919-38-85Q35:31:00.000Z BP Sitting (Pre-Dialysis) 169/63 mmHg BP Sitting (Post-Dialysis) 174/64 mmHg Concurrent Access: falseAV Fistula Upper Arm (Right) Arterial BP Standing (Pre-Dialysis) 155/65 mmHg Sitti ng Heart Rate Post-Dialysis 58 BPM Sitting Heart Rate Pre-Dialysis 64 BPM Temperatu re Post-Dialysis 97.8 degF Standing Heart Rate Pre-Dialysis 67 BPM Temperature Pre-Dialysis 97.2 degF April 30, 2024 In-Center Hemodialysis Treatment 2428-78-30P94:27:00.000Z 4788-96-55R81:43:49.000Z BP Sitting (Pre-Dialysis) 157/64 mmHg BP Sitting (Post-Dialysis) 168/67 mmHg Concurrent Access: falseAV Fistula Upper Arm (Right) Arterial BP Standing (Pre-Dialysis) 151/53 mmHg BP Standing (P ost-Dialysis) 165/58 mmHg Sitting Heart Rate Pre-Dialysis 59 BPM Sitting Heart Rate Post-Dialysis 68 BPM Standing Heart Rate Pre-Dialysis 66 BPM Standing Heart Rate Post-Dialysis 70 BPM Temperature Pre-Dialysis 97.7 degF Temperature Post -Dialysis 97.4 degF April 28, 2024 In-Center Hemodialysis Treatment 4083-40-26K27:25:02.000Z 9633-09-42O96:30:27.000Z BP Sitting (Pre-Dialysis) 132/62 mmHg BP Sitting (Post-Dialysis) 167/64 mmHg Concurrent Access: falseAV Fistula Upper Arm (Right) Arterial Sitting Heart Rate Pre-Dialysis 54 BPM Sitting H eart Rate Post-Dialysis 62 BPM Temperature Pre-Dialysis 98.2 degF Temperature Post -Dialysis 97.2 degF April 25, 2024 In-Center Hemodialysis Treatment 3545-13-39Y26:17:43.000Z 7164-49-60W81:36:03.000Z BP Sitting (Pre-Dialysis) 150/65 mmHg BP Sitting (Post-Dialysis) 180/75 mmHg Concurrent Access: falseAV Fistula Upper Arm (Right) Arterial BP Standing (Pre-Dialysis) 144/69 mmHg Sitti ng Heart Rate Post-Dialysis 66 BPM Sitting Heart Rate Pre-Dialysis 57 BPM Temperatu re Post-Dialysis 98.1 degF Standing Heart Rate Pre-Dialysis 58 BPM Temperature Pre-Dialysis 97.2 degF April 23, 2024 In-Center Hemodialysis Treatment 1118-32-13N90:12:04.000Z 8596-78-80T01:29:09.000Z BP Sitting (Pre-Dialysis) 164/63 mmHg BP Sitting (Post-Dialysis) 162/71 mmHg Concurrent Access: falseAV Fistula Upper Arm (Right) Arterial BP Standing (Pre-Dialysis) 155/62 mmHg Sitti ng Heart Rate Post-Dialysis 66 BPM Sitting Heart Rate Pre-Dialysis 65 BPM Temperatu re Post-Dialysis 97.6 degF Standing Heart Rate Pre-Dialysis 94 BPM Temperature Pre-Dialysis 97.2 degF April 21, 2024 In-Center Hemodialysis Treatment 3730-27-14C36:14:27.000Z 8769-18-86X76:30:17.000Z BP Sitting (Pre-Dialysis) 152/68 mmHg BP Sitting (Post-Dialysis) 190/83 mmHg Concurrent Access: falseAV Fistula Upper Arm (Right) Arterial Sitting Heart Rate Pre-Dialysis 57 BPM Sitting H eart Rate Post-Dialysis 62 BPM Temperature Pre-Dialysis 98.2 degF Temperature Post -Dialysis 97.6 degF April 18, 2024 In-Center Hemodialysis Treatment 7047-52-38H18:25:00.000Z 4386-92-96W25:38:12.000Z BP Sitting (Pre-Dialysis) 174/60 mmHg BP Sitting (Post-Dialysis) 170/66 mmHg Concurrent Access: falseAV Fistula Upper Arm (Right) Arterial BP Standing (Pre-Dialysis) 158/65 mmHg BP Standing (P ost-Dialysis) 138/68 mmHg Sitting Heart Rate Pre-Dialysis 55 BPM Sitting Heart Rate Post-Dialysis 58 BPM Standing Heart Rate Pre-Dialysis 59 BPM Standing Heart Rate Post-Dialysis 64 BPM Temperature Pre-Dialysis 97.5 degF Temperature Post -Dialysis 97.7 degF April 16, 2024 In-Center Hemodialysis Treatment 4441-26-61X92:20:44.000Z 8624-47-30Q97:41:34.000Z BP Sitting (Pre-Dialysis) 149/55 mmHg BP Sitting (Post-Dialysis) 165/64 mmHg Concurrent Access: falseAV Fistula Upper Arm (Right) Arterial BP Standing (Pre-Dialysis) 163/66 mmHg Sitti ng Heart Rate Post-Dialysis 51 BPM Sitting Heart Rate Pre-Dialysis 48 BPM Temperatu re Post-Dialysis 97.2 degF Standing Heart Rate Pre-Dialysis 56 BPM Temperature Pre-Dialysis 97.7 degF April 14, 2024 In-Center Hemodialysis Treatment 2584-23-43E67:24:29.000Z 6926-95-06M30:42:49.000Z BP Sitting (Pre-Dialysis) 177/75 mmHg BP Sitting (Post-Dialysis) 161/61 mmHg Concurrent Access: falseAV Fistula Upper Arm (Right) Arterial BP Standing (Pre-Dialysis) 152/62 mmHg Sitti ng Heart Rate Post-Dialysis 53 BPM Sitting Heart Rate Pre-Dialysis 63 BPM Temperatu re Post-Dialysis 97.4 degF Standing Heart Rate Pre-Dialysis 53 BPM Temperature Pre-Dialysis 97.6 degF April 11, 2024 In-Center Hemodialysis Treatment [id number]:19:26.000Z 9530-65-74H66:29:26.000Z BP Sitting (Pre-Dialysis) 157/69 mmHg BP Sitting (Post-Dialysis) 135/59 mmHg Concurrent Access: falseAV Fistula Upper Arm (Right) Arterial BP Standing (Pre-Dialysis) 142/68 mmHg Sitti ng Heart Rate Post-Dialysis 53 BPM Sitting Heart Rate Pre-Dialysis 50 BPM Temperatu re Post-Dialysis 97.2 degF Standing Heart Rate Pre-Dialysis 52 BPM Temperature Pre-Dialysis 97.2 degF April 09, 2024 In-Center Hemodialysis Treatment 3033-19-87S68:08:02.000Z 8750-34-64K98:03:02.000Z BP Sitting (Pre-Dialysis) 142/53 mmHg BP Sitting (Post-Dialysis) 175/59 mmHg Concurrent Access: falseAV Fistula Upper Arm (Right) Arterial BP Standing (Pre-Dialysis) 135/57 mmHg BP Standing (P ost-Dialysis) 154/43 mmHg Sitting Heart Rate Pre-Dialysis 48 BPM Sitting Heart Rate Post-Dialysis 54 BPM Standing Heart Rate Pre-Dialysis 53 BPM Standing Heart Rate Post-Dialysis 57 BPM Temperature Pre-Dialysis 97.7 degF Temperature Post -Dialysis 97.4 degF April 07, 2024 In-Center Hemodialysis Treatment 2894-53-90Y60:11:09.000Z 5837-28-68S08:26:59.000Z BP Sitting (Pre-Dialysis) 135/52 mmHg BP Sitting (Post-Dialysis) 148/48 mmHg Concurrent Access: falseAV Fistula Upper Arm (Right) Arterial BP Standing (Pre-Dialysis) 141/50 mmHg BP Standing (P ost-Dialysis) 147/62 mmHg Sitting Heart Rate Pre-Dialysis 52 BPM Sitting Heart Rate Post-Dialysis 47 BPM Standing Heart Rate Pre-Dialysis 50 BPM Standing Heart Rate Post-Dialysis 61 BPM Temperature Pre-Dialysis 97.2 degF Temperature Post -Dialysis 97.2 degF April 04, 2024 In-Center Hemodialysis Treatment 1566-95-29I24:19:22.000Z 0750-28-66W66:31:02.000Z BP Sitting (Pre-Dialysis) 137/45 mmHg BP Sitting (Post-Dialysis) 167/67 mmHg Concurrent Access: falseAV Fistula Upper Arm (Right) Arterial BP Standing (Pre-Dialysis) 120/50 mmHg BP Standing (P ost-Dialysis) 180/68 mmHg Sitting Heart Rate Pre-Dialysis 40 BPM Sitting Heart Rate Post-Dialysis 57 BPM Standing Heart Rate Pre-Dialysis 64 BPM Standing Heart Rate Post-Dialysis 56 BPM Temperature Pre-Dialysis 97.5 degF Temperature Post -Dialysis 97.8 degF April 02, 2024 In-Center Hemodialysis Treatment 6319-26-90N91:12:35.000Z 0734-19-73X18:27:35.000Z BP Sitting (Pre-Dialysis) 138/50 mmHg BP Sitting (Post-Dialysis) 157/60 mmHg Concurrent Access: falseAV Fistula Upper Arm (Right) Arterial Sitting Heart Rate Pre-Dialysis 51 BPM Sitting H eart Rate Post-Dialysis 57 BPM Temperature Pre-Dialysis 98.2 degF Temperature Post -Dialysis 98.3 degF March 31, 2024 In-Center Hemodialysis Treatment 0252-68-08O21:45:31.000Z 1390-33-01S73:59:16.000Z BP Sitting (Pre-Dialysis) 170/74 mmHg BP Sitting (Post-Dialysis) 161/57 mmHg Concurrent Access: falseAV Fistula Upper Arm (Right) Arterial BP Standing (Pre-Dialysis) 164/73 mmHg BP Standing (P ost-Dialysis) 173/54 mmHg Sitting Heart Rate Pre-Dialysis 56 BPM Sitting Heart Rate Post-Dialysis 43 BPM Standing Heart Rate Pre-Dialysis 62 BPM Standing Heart Rate Post-Dialysis 58 BPM Temperature Pre-Dialysis 97.9 degF Temperature Post -Dialysis 98.2 degF March 28, 2024 In-Center Hemodialysis Treatment 6290-24-42W21:11:00.000Z 8235-06-29H51:26:00.000Z BP Sitting (Pre-Dialysis) 131/57 mmHg BP Sitting (Post-Dialysis) 141/61 mmHg Concurrent Access: falseAV Fistula Upper Arm (Right) Arterial BP Standing (Pre-Dialysis) 139/64 mmHg BP Standing (P ost-Dialysis) 128/40 mmHg Sitting Heart Rate Pre-Dialysis 63 BPM Sitting Heart Rate Post-Dialysis 66 BPM Standing Heart Rate Pre-Dialysis 73 BPM Standing Heart Rate Post-Dialysis 79 BPM Temperature Pre-Dialysis 97.7 degF Temperature Post -Dialysis 97.4 degF March 26, 2024 In-Center Hemodialysis Treatment [id number]:14:08.000Z [id number]:39:08.000Z BP Sitting (Pre-Dialysis) 162/61 mmHg BP Sitting (Post-Dialysis) 170/61 mmHg Concurrent Access: falseAV Fistula Upper Arm (Right) Arterial BP Standing (Pre-Dialysis) 161/75 mmHg BP Standing (P ost-Dialysis) 145/72 mmHg Sitting Heart Rate Pre-Dialysis 55 BPM Sitting Heart Rate Post-Dialysis 54 BPM Standing Heart Rate Pre-Dialysis 70 BPM Standing Heart Rate Post-Dialysis 76 BPM Temperature Pre-Dialysis 97.9 degF Temperature Post -Dialysis 97.6 degF March 24, 2024 In-Center Hemodialysis Treatment [id number]:10:51.000Z [id number]:27:31.000Z BP Sitting (Pre-Dialysis) 157/88 mmHg BP Sitting (Post-Dialysis) 165/67 mmHg Concurrent Access: falseAV Fistula Upper Arm (Right) Arterial BP Standing (Pre-Dialysis) 154/87 mmHg Sitti ng Heart Rate Post-Dialysis 60 BPM Sitting Heart Rate Pre-Dialysis 62 BPM Temperatu re Post-Dialysis 97.4 degF Standing Heart Rate Pre-Dialysis 67 BPM Temperature Pre-Dialysis 97.2 degF March 21, 2024 In-Center Hemodialysis Treatment [id number]:07:59.000Z [id number]:21:19.000Z BP Sitting (Pre-Dialysis) 158/54 mmHg BP Sitting (Post-Dialysis) 133/53 mmHg Concurrent Access: falseAV Fistula Upper Arm (Right) Arterial BP Standing (Pre-Dialysis) 148/63 mmHg Sitti ng Heart Rate Post-Dialysis 67 BPM Sitting Heart Rate Pre-Dialysis 58 BPM Temperatu re Post-Dialysis 97.2 degF Standing Heart Rate Pre-Dialysis 57 BPM Temperature Pre-Dialysis 97.9 degF March 19, 2024 In-Center Hemodialysis Treatment [id number]:55:02.000Z 5490-27-64W74:28:47.000Z BP Sitting (Pre-Dialysis) 178/85 mmHg BP Sitting (Post-Dialysis) 173/55 mmHg Concurrent Access: falseAV Fistula Upper Arm (Right) Arterial BP Standing (Pre-Dialysis) 165/65 mmHg Sitti ng Heart Rate Post-Dialysis 69 BPM Sitting Heart Rate Pre-Dialysis 60 BPM Temperatu re Post-Dialysis 97.7 degF Standing Heart Rate Pre-Dialysis 60 BPM Temperature Pre-Dialysis 97.2 degF March 17, 2024 In-Center Hemodialysis Treatment [id number]:11:31.000Z 7674-08-92S67:41:06.000Z BP Sitting (Pre-Dialysis) 193/71 mmHg BP Sitting (Post-Dialysis) 166/71 mmHg Concurrent Access: falseAV Fistula Upper Arm (Right) Arterial Sitting Heart Rate Pre-Dialysis 61 BPM BP Standing (Post-Dialysis) 165/52 mmHg Temperature Pre-Dialysis 98.2 degF Sitting Heart Ra te Post-Dialysis 71 BPM Standing Heart Rate Post-Karina lysis 64 BPM Temperature Post-Dialysis 97 .6 degF March 14, 2024 In-Center Hemodialysis Treatment [id number]:14:13.000Z 5336-20-91H67:28:23.000Z BP Sitting (Pre-Dialysis) 154/53 mmHg BP Sitting (Post-Dialysis) 169/98 mmHg Concurrent Access: falseAV Fistula Upper Arm (Right) Arterial BP Standing (Pre-Dialysis) 151/61 mmHg Sitti ng Heart Rate Post-Dialysis 98 BPM Sitting Heart Rate Pre-Dialysis 69 BPM Temperatu re Post-Dialysis 97.4 degF Standing Heart Rate Pre-Dialysis 60 BPM Temperature Pre-Dialysis 97.2 degF March 12, 2024 In-Center Hemodialysis Treatment [id number]:11:00.000Z [id number]:31:58.000Z BP Sitting (Pre-Dialysis) 175/57 mmHg BP Sitting (Post-Dialysis) 172/64 mmHg Concurrent Access: falseAV Fistula Upper Arm (Right) Arterial BP Standing (Pre-Dialysis) 167/73 mmHg BP Standing (P ost-Dialysis) 138/107 mmHg Sitting Heart Rate Pre-Dialysis 61 BPM Sitting Heart Rate Post-Dialysis 68 BPM Standing Heart Rate Pre-Dialysis 69 BPM Standing Heart Rate Post-Dialysis 83 BPM Temperature Pre-Dialysis 98.1 degF Temperature Post -Dialysis 97.6 degF March 10, 2024 In-Center Hemodialysis Treatment [id number]:58:18.000Z [id number]:12:53.000Z BP Sitting (Pre-Dialysis) 145/65 mmHg BP Sitting (Post-Dialysis) 166/60 mmHg Concurrent Access: falseAV Fistula Upper Arm (Right) Arterial BP Standing (Pre-Dialysis) 156/67 mmHg Sitti ng Heart Rate Post-Dialysis 63 BPM Sitting Heart Rate Pre-Dialysis 59 BPM Temperatu re Post-Dialysis 97.2 degF Standing Heart Rate Pre-Dialysis 55 BPM Temperature Pre-Dialysis 97.2 degF March 07, 2024 In-Center Hemodialysis Treatment [id number]:17:37.000Z 8179-01-95R70:34:42.000Z BP Sitting (Pre-Dialysis) 145/72 mmHg BP Sitting (Post-Dialysis) 180/81 mmHg Concurrent Access: falseAV Fistula Upper Arm (Right) Arterial BP Standing (Pre-Dialysis) 142/70 mmHg Sitti ng Heart Rate Post-Dialysis 65 BPM Sitting Heart Rate Pre-Dialysis 63 BPM Temperatu re Post-Dialysis 97.2 degF Standing Heart Rate Pre-Dialysis 80 BPM Temperature Pre-Dialysis 97.2 degF March 05, 2024 In-Center Hemodialysis Treatment [id number]:17:18.000Z 9052-06-18A23:29:48.000Z BP Sitting (Pre-Dialysis) 139/59 mmHg BP Sitting (Post-Dialysis) 157/61 mmHg Concurrent Access: falseAV Fistula Upper Arm (Right) Arterial BP Standing (Pre-Dialysis) 157/43 mmHg Sitti ng Heart Rate Post-Dialysis 62 BPM Sitting Heart Rate Pre-Dialysis 51 BPM Temperatu re Post-Dialysis 97.6 degF Standing Heart Rate Pre-Dialysis 60 BPM Temperature Pre-Dialysis 97.6 degF March 03, 2024 In-Center Hemodialysis Treatment [id number]:04:00.000Z 8927-27-31U57:19:22.000Z BP Sitting (Pre-Dialysis) 185/70 mmHg BP Sitting (Post-Dialysis) 151/61 mmHg Concurrent Access: falseAV Fistula Upper Arm (Right) Arterial BP Standing (Pre-Dialysis) 147/105 mmHg Sitti ng Heart Rate Post-Dialysis 59 BPM Sitting Heart Rate Pre-Dialysis 51 BPM Temperatu re Post-Dialysis 97.8 degF Standing Heart Rate Pre-Dialysis 49 BPM Temperature Pre-Dialysis 99.7 degF February 29, 2024 In-Center Hemodialysis Treatment 9425-17-31W19:11:00.000Z 2791-30-49V46:28:38.000Z BP Sitting (Pre-Dialysis) 164/75 mmHg BP Sitting (Post-Dialysis) 189/55 mmHg Concurrent Access: falseAV Fistula Upper Arm (Right) Arterial BP Standing (Pre-Dialysis) 175/58 mmHg Sitti ng Heart Rate Post-Dialysis 52 BPM Sitting Heart Rate Pre-Dialysis 72 BPM Temperatu re Post-Dialysis 97.6 degF Standing Heart Rate Pre-Dialysis 57 BPM Temperature Pre-Dialysis 98.1 degF February 27, 2024 In-Center Hemodialysis Treatment 6321-79-69Q31:18:00.000Z [id number]:36:10.000Z BP Sitting (Pre-Dialysis) 185/76 mmHg BP Sitting (Post-Dialysis) 193/68 mmHg Concurrent Access: falseAV Fistula Upper Arm (Right) Arterial BP Standing (Pre-Dialysis) 202/83 mmHg BP Standing (P ost-Dialysis) 207/67 mmHg Sitting Heart Rate Pre-Dialysis 60 BPM Sitting Heart Rate Post-Dialysis 55 BPM Standing Heart Rate Pre-Dialysis 58 BPM Standing Heart Rate Post-Dialysis 57 BPM Temperature Pre-Dialysis 98.2 degF Temperature Post -Dialysis 98 degF February 25, 2024 In-Center Hemodialysis Treatment [id number]:16:50.000Z 1289-47-32H47:35:10.000Z BP Sitting (Pre-Dialysis) 177/67 mmHg BP Sitting (Post-Dialysis) 192/66 mmHg Concurrent Access: falseAV Fistula Upper Arm (Right) Arterial BP Standing (Pre-Dialysis) 185/75 mmHg Sitti ng Heart Rate Post-Dialysis 48 BPM Sitting Heart Rate Pre-Dialysis 60 BPM Temperatu re Post-Dialysis 97.2 degF Standing Heart Rate Pre-Dialysis 67 BPM Temperature Pre-Dialysis 97.5 degF February 22, 2024 In-Center Hemodialysis Treatment [id number]:16:44.000Z 3040-94-06N53:33:24.000Z BP Sitting (Pre-Dialysis) 158/99 mmHg BP Sitting (Post-Dialysis) 203/66 mmHg Concurrent Access: falseAV Fistula Upper Arm (Right) Arterial BP Standing (Pre-Dialysis) 157/71 mmHg BP Standing (P ost-Dialysis) 196/78 mmHg Sitting Heart Rate Pre-Dialysis 68 BPM Sitting Heart Rate Post-Dialysis 52 BPM Standing Heart Rate Pre-Dialysis 65 BPM Standing Heart Rate Post-Dialysis 60 BPM Temperature Pre-Dialysis 97.6 degF Temperature Post -Dialysis 97.4 degF February 20, 2024 In-Center Hemodialysis Treatment 5321-29-68T03:12:43.000Z 0705-27-82K22:35:38.000Z BP Sitting (Pre-Dialysis) 165/73 mmHg BP Sitting (Post-Dialysis) 148/62 mmHg Concurrent Access: falseAV Fistula Upper Arm (Right) Arterial BP Standing (Pre-Dialysis) 164/67 mmHg BP Standing (P ost-Dialysis) 165/80 mmHg Sitting Heart Rate Pre-Dialysis 69 BPM Sitting Heart Rate Post-Dialysis 61 BPM Standing Heart Rate Pre-Dialysis 68 BPM Temperature Post-Dialysis 97.2 degF Temperature Pre-Dialysis 97.2 degF February 18, 2024 In-Center Hemodialysis Treatment 5875-09-64D24:10:00.000Z 2816-90-70Z20:27:07.000Z BP Sitting (Pre-Dialysis) 172/76 mmHg BP Sitting (Post-Dialysis) 179/63 mmHg Concurrent Access: falseAV Fistula Upper Arm (Right) Arterial BP Standing (Pre-Dialysis) 187/92 mmHg Sitti ng Heart Rate Post-Dialysis 54 BPM Sitting Heart Rate Pre-Dialysis 69 BPM Temperatu re Post-Dialysis 97.6 degF Standing Heart Rate Pre-Dialysis 71 BPM Temperature Pre-Dialysis 98.8 degF February 15, 2024 In-Center Hemodialysis Treatment [id number]:11:47.000Z 3366-26-79A37:28:02.000Z BP Sitting (Pre-Dialysis) 177/57 mmHg BP Sitting (Post-Dialysis) 156/53 mmHg Concurrent Access: falseAV Fistula Upper Arm (Right) Arterial BP Standing (Pre-Dialysis) 117/58 mmHg Sitti ng Heart Rate Post-Dialysis 52 BPM Sitting Heart Rate Pre-Dialysis 57 BPM Temperatu re Post-Dialysis 97.8 degF Standing Heart Rate Pre-Dialysis 103 BPM Temperature Pre-Dialysis 97.1 degF February 13, 2024 In-Center Hemodialysis Treatment 7615-93-10J16:17:02.000Z 2664-28-45Q57:29:57.000Z BP Sitting (Pre-Dialysis) 150/74 mmHg BP Sitting (Post-Dialysis) 161/60 mmHg Concurrent Access: falseAV Fistula Upper Arm (Right) Arterial BP Standing (Pre-Dialysis) 155/65 mmHg Sitti ng Heart Rate Post-Dialysis 56 BPM Sitting Heart Rate Pre-Dialysis 62 BPM Temperatu re Post-Dialysis 97.6 degF Standing Heart Rate Pre-Dialysis 60 BPM Temperature Pre-Dialysis 97.2 degF February 11, 2024 In-Center Hemodialysis Treatment 6437-81-77M90:13:35.000Z 6312-71-94T73:32:45.000Z BP Sitting (Pre-Dialysis) 152/66 mmHg BP Sitting (Post-Dialysis) 163/66 mmHg Concurrent Access: falseAV Fistula Upper Arm (Right) Arterial BP Standing (Pre-Dialysis) 154/64 mmHg BP Standing (P ost-Dialysis) 172/76 mmHg Sitting Heart Rate Pre-Dialysis 72 BPM Sitting Heart Rate Post-Dialysis 70 BPM Standing Heart Rate Pre-Dialysis 73 BPM Standing Heart Rate Post-Dialysis 71 BPM Temperature Pre-Dialysis 97.2 degF Temperature Post -Dialysis 97.7 degF February 08, 2024 In-Center Hemodialysis Treatment [id number]:19:00.000Z 3011-23-01R74:37:22.000Z BP Sitting (Pre-Dialysis) 143/88 mmHg BP Sitting (Post-Dialysis) 119/54 mmHg Concurrent Access: falseAV Fistula Upper Arm (Right) Arterial BP Standing (Pre-Dialysis) 170/67 mmHg BP Standing (P ost-Dialysis) 117/47 mmHg Sitting Heart Rate Pre-Dialysis 67 BPM Sitting Heart Rate Post-Dialysis 73 BPM Standing Heart Rate Pre-Dialysis 59 BPM Standing Heart Rate Post-Dialysis 71 BPM Temperature Pre-Dialysis 98 degF Temperature Post -Dialysis 97.2 degF February 06, 2024 In-Center Hemodialysis Treatment 3059-11-01X39:14:00.000Z 4848-00-60T52:33:45.000Z BP Sitting (Pre-Dialysis) 176/70 mmHg BP Sitting (Post-Dialysis) 173/74 mmHg Concurrent Access: falseAV Fistula Upper Arm (Right) Arterial BP Standing (Pre-Dialysis) 165/63 mmHg BP Standing (P ost-Dialysis) 158/58 mmHg Sitting Heart Rate Pre-Dialysis 54 BPM Sitting Heart Rate Post-Dialysis 76 BPM Standing Heart Rate Pre-Dialysis 75 BPM Standing Heart Rate Post-Dialysis 61 BPM Temperature Pre-Dialysis 97.2 degF Temperature Post -Dialysis 97.4 degF February 04, 2024 In-Center Hemodialysis Treatment 7721-09-65R74:19:33.000Z 8425-92-89H98:33:38.000Z BP Sitting (Pre-Dialysis) 178/71 mmHg BP Sitting (Post-Dialysis) 172/73 mmHg Concurrent Access: falseAV Fistula Upper Arm (Right) Arterial Sitting Heart Rate Pre-Dialysis 69 BPM Sitting H eart Rate Post-Dialysis 70 BPM Temperature Pre-Dialysis 97.2 degF Temperature Post -Dialysis 97.2 degF February 01, 2024 In-Center Hemodialysis Treatment [id number]:21:35.000Z 6554-33-43S98:46:35.000Z BP Sitting (Pre-Dialysis) 162/75 mmHg BP Sitting (Post-Dialysis) 186/74 mmHg Concurrent Access: falseAV Fistula Upper Arm (Right) Arterial BP Standing (Pre-Dialysis) 163/76 mmHg BP Standing (P ost-Dialysis) 164/49 mmHg Sitting Heart Rate Pre-Dialysis 66 BPM Sitting Heart Rate Post-Dialysis 66 BPM Standing Heart Rate Pre-Dialysis 64 BPM Standing Heart Rate Post-Dialysis 54 BPM Temperature Pre-Dialysis 97.2 degF Temperature Post -Dialysis 97.8 degF January 30, 2024 In-Center Hemodialysis Treatment 6545-70-24A65:33:00.000Z 6929-64-25Q85:28:52.000Z BP Sitting (Pre-Dialysis) 152/50 mmHg BP Sitting (Post-Dialysis) 184/80 mmHg Concurrent Access: falseAV Fistula Upper Arm (Right) Arterial BP Standing (Pre-Dialysis) 143/70 mmHg Sitti ng Heart Rate Post-Dialysis 55 BPM Sitting Heart Rate Pre-Dialysis 59 BPM Temperatu re Post-Dialysis 97.2 degF Standing Heart Rate Pre-Dialysis 63 BPM Temperature Pre-Dialysis 97.8 degF January 28, 2024 In-Center Hemodialysis Treatment 9316-89-85C30:17:12.000Z 2008-02-36B69:33:02.000Z BP Sitting (Pre-Dialysis) 163/69 mmHg BP Sitting (Post-Dialysis) 147/81 mmHg Concurrent Access: falseAV Fistula Upper Arm (Right) Arterial Sitting Heart Rate Pre-Dialysis 63 BPM Sitting H eart Rate Post-Dialysis 55 BPM Temperature Pre-Dialysis 97.2 degF Temperature Post -Dialysis 97.2 degF January 25, 2024 In-Center Hemodialysis Treatment 3733-15-17T26:23:23.000Z 7377-59-98J94:41:43.000Z BP Sitting (Pre-Dialysis) 164/77 mmHg BP Sitting (Post-Dialysis) 158/69 mmHg Concurrent Access: falseAV Fistula Upper Arm (Right) Arterial Sitting Heart Rate Pre-Dialysis 72 BPM Sitting H eart Rate Post-Dialysis 68 BPM Temperature Pre-Dialysis 97.2 degF Temperature Post -Dialysis 98.2 degF January 23, 2024 In-Center Hemodialysis Treatment [id number]:17:00.000Z 8561-34-98V38:33:31.000Z BP Sitting (Pre-Dialysis) 130/55 mmHg BP Sitting (Post-Dialysis) 158/60 mmHg Concurrent Access: falseAV Fistula Upper Arm (Right) Arterial BP Standing (Pre-Dialysis) 131/57 mmHg Sitting Heart Rate Post-Dialysis 69 BPM Sitting Heart Rate Pre-Dialysis 59 BPM Standing Heart Rate Pre-Dialysis 69 BPM Temperature Pre-Dialysis 97.7 degF January 21, 2024 In-Center Hemodialysis Treatment 5241-31-14T58:13:00.000Z 4833-62-39I12:02:10.000Z BP Sitting (Pre-Dialysis) 140/62 mmHg BP Sitting (Post-Dialysis) 168/65 mmHg Concurrent Access: falseAV Fistula Upper Arm (Right) Arterial BP Standing (Pre-Dialysis) 149/58 mmHg Sitti ng Heart Rate Post-Dialysis 62 BPM Sitting Heart Rate Pre-Dialysis 51 BPM Temperatu re Post-Dialysis 97.6 degF Standing Heart Rate Pre-Dialysis 54 BPM Temperature Pre-Dialysis 97.7 degF January 18, 2024 In-Center Hemodialysis Treatment 8973-64-71S32:21:59.000Z 9462-80-58W43:23:39.000Z BP Sitting (Pre-Dialysis) 171/57 mmHg BP Sitting (Post-Dialysis) 149/57 mmHg Concurrent Access: falseAV Fistula Upper Arm (Right) Arterial BP Standing (Pre-Dialysis) 155/62 mmHg Sitti ng Heart Rate Post-Dialysis 64 BPM Sitting Heart Rate Pre-Dialysis 65 BPM Temperatu re Post-Dialysis 97.5 degF Standing Heart Rate Pre-Dialysis 66 BPM Temperature Pre-Dialysis 97.2 degF January 16, 2024 In-Center Hemodialysis Treatment 0947-21-72E42:16:26.000Z 0387-78-06L29:32:16.000Z BP Sitting (Pre-Dialysis) 157/70 mmHg BP Sitting (Post-Dialysis) 186/72 mmHg Concurrent Access: falseAV Fistula Upper Arm (Right) Arterial BP Standing (Pre-Dialysis) 144/86 mmHg BP Standing (P ost-Dialysis) 133/85 mmHg Sitting Heart Rate Pre-Dialysis 55 BPM Sitting Heart Rate Post-Dialysis 69 BPM Standing Heart Rate Pre-Dialysis 80 BPM Standing Heart Rate Post-Dialysis 72 BPM Temperature Pre-Dialysis 98.1 degF Temperature Post -Dialysis 97.6 degF January 14, 2024 In-Center Hemodialysis Treatment [id number]:22:00.000Z 6776-23-64K60:34:51.000Z BP Sitting (Pre-Dialysis) 163/65 mmHg BP Sitting (Post-Dialysis) 176/78 mmHg Concurrent Access: falseAV Fistula Upper Arm (Right) Arterial BP Standing (Pre-Dialysis) 138/76 mmHg Sitti ng Heart Rate Post-Dialysis 69 BPM Sitting Heart Rate Pre-Dialysis 73 BPM Temperatu re Post-Dialysis 97.2 degF Standing Heart Rate Pre-Dialysis 74 BPM Temperature Pre-Dialysis 97.8 degF January 11, 2024 In-Center Hemodialysis Treatment 7652-36-19N36:08:00.000Z 3460-36-99Q45:27:02.000Z BP Sitting (Pre-Dialysis) 170/74 mmHg BP Sitting (Post-Dialysis) 181/70 mmHg Concurrent Access: falseAV Fistula Upper Arm (Right) Arterial BP Standing (Pre-Dialysis) 160/92 mmHg Sitti ng Heart Rate Post-Dialysis 67 BPM Sitting Heart Rate Pre-Dialysis 55 BPM Temperatu re Post-Dialysis 97.2 degF Standing Heart Rate Pre-Dialysis 72 BPM Temperature Pre-Dialysis 97.8 degF January 09, 2024 In-Center Hemodialysis Treatment 4729-96-80X75:18:00.000Z 6162-61-82Z47:36:00.000Z BP Sitting (Pre-Dialysis) 149/69 mmHg BP Sitting (Post-Dialysis) 163/63 mmHg Concurrent Access: falseAV Fistula Upper Arm (Right) Arterial BP Standing (Pre-Dialysis) 147/69 mmHg BP Standing (P ost-Dialysis) 154/52 mmHg Sitting Heart Rate Pre-Dialysis 61 BPM Sitting Heart Rate Post-Dialysis 70 BPM Standing Heart Rate Pre-Dialysis 67 BPM Standing Heart Rate Post-Dialysis 72 BPM Temperature Pre-Dialysis 98.1 degF Temperature Post -Dialysis 98.6 degF January 07, 2024 In-Center Hemodialysis Treatment [id number]:09:57.000Z 1012-02-56E14:28:42.000Z BP Sitting (Pre-Dialysis) 155/72 mmHg BP Sitting (Post-Dialysis) 123/69 mmHg Concurrent Access: falseAV Fistula Upper Arm (Right) Arterial BP Standing (Pre-Dialysis) 154/70 mmHg Sitti ng Heart Rate Post-Dialysis 71 BPM Sitting Heart Rate Pre-Dialysis 65 BPM Temperatu re Post-Dialysis 97.8 degF Standing Heart Rate Pre-Dialysis 67 BPM Temperature Pre-Dialysis 97.2 degF January 04, 2024 In-Center Hemodialysis Treatment 1361-11-60F29:15:00.000Z 4396-84-75E50:32:18.000Z BP Sitting (Pre-Dialysis) 144/64 mmHg BP Sitting (Post-Dialysis) 135/54 mmHg Concurrent Access: falseAV Fistula Upper Arm (Right) Arterial BP Standing (Pre-Dialysis) 146/74 mmHg Sitti ng Heart Rate Post-Dialysis 70 BPM Sitting Heart Rate Pre-Dialysis 57 BPM Temperatu re Post-Dialysis 97.2 degF Standing Heart Rate Pre-Dialysis 69 BPM Temperature Pre-Dialysis 97.8 degF January 02, 2024 In-Center Hemodialysis Treatment 4296-02-15M91:28:33.000Z 8638-71-42G16:41:03.000Z BP Sitting (Pre-Dialysis) 154/70 mmHg BP Sitting (Post-Dialysis) 174/57 mmHg Concurrent Access: falseAV Fistula Upper Arm (Right) Arterial BP Standing (Pre-Dialysis) 148/57 mmHg BP Standing (P ost-Dialysis) 138/63 mmHg Sitting Heart Rate Pre-Dialysis 59 BPM Sitting Heart Rate Post-Dialysis 57 BPM Standing Heart Rate Pre-Dialysis 54 BPM Standing Heart Rate Post-Dialysis 74 BPM Temperature Pre-Dialysis 97.6 degF Temperature Post -Dialysis 97.6 degF December 31, 2023 In-Center Hemodialysis Treatment [id number]:14:47.000Z 4356-42-43U24:31:27.000Z BP Sitting (Pre-Dialysis) 161/66 mmHg BP Sitting (Post-Dialysis) 173/63 mmHg Concurrent Access: falseAV Fistula Upper Arm (Right) Arterial BP Standing (Pre-Dialysis) 145/74 mmHg BP Standing (P ost-Dialysis) 145/82 mmHg Sitting Heart Rate Pre-Dialysis 55 BPM Sitting Heart Rate Post-Dialysis 68 BPM Standing Heart Rate Pre-Dialysis 58 BPM Standing Heart Rate Post-Dialysis 70 BPM Temperature Pre-Dialysis 97.2 degF Temperature Post -Dialysis 98.7 degF December 28, 2023 In-Center Hemodialysis Treatment 4988-17-89E00:15:00.000Z 9263-43-38W59:32:33.000Z BP Sitting (Pre-Dialysis) 162/66 mmHg BP Sitting (Post-Dialysis) 182/70 mmHg Concurrent Access: falseAV Fistula Upper Arm (Right) Arterial BP Standing (Pre-Dialysis) 144/63 mmHg Sitti ng Heart Rate Post-Dialysis 56 BPM Sitting Heart Rate Pre-Dialysis 52 BPM Temperatu re Post-Dialysis 97.4 degF Standing Heart Rate Pre-Dialysis 62 BPM Temperature Pre-Dialysis 97.4 degF December 26, 2023 In-Center Hemodialysis Treatment [id number]:03:29.000Z 6819-13-65C36:20:06.000Z BP Sitting (Pre-Dialysis) 161/86 mmHg BP Sitting (Post-Dialysis) 158/78 mmHg Concurrent Access: falseAV Fistula Upper Arm (Right) Arterial BP Standing (Pre-Dialysis) 147/65 mmHg Sitti ng Heart Rate Post-Dialysis 69 BPM Sitting Heart Rate Pre-Dialysis 57 BPM Temperatu re Post-Dialysis 97.2 degF Standing Heart Rate Pre-Dialysis 76 BPM Temperature Pre-Dialysis 97.2 degF December 24, 2023 In-Center Hemodialysis Treatment 5321-61-91L50:12:00.000Z 7056-30-75W76:13:55.000Z BP Sitting (Pre-Dialysis) 168/78 mmHg BP Sitting (Post-Dialysis) 187/77 mmHg Concurrent Access: falseAV Fistula Upper Arm (Right) Arterial BP Standing (Pre-Dialysis) 163/53 mmHg Sitti ng Heart Rate Post-Dialysis 59 BPM Sitting Heart Rate Pre-Dialysis 68 BPM Temperatu re Post-Dialysis 97.4 degF Standing Heart Rate Pre-Dialysis 63 BPM Temperature Pre-Dialysis 97.7 degF December 21, 2023 In-Center Hemodialysis Treatment 8983-64-12W02:16:00.000Z [id number]:35:40.000Z BP Sitting (Pre-Dialysis) 153/68 mmHg BP Sitting (Post-Dialysis) 111/79 mmHg Concurrent Access: falseAV Fistula Upper Arm (Right) Arterial BP Standing (Pre-Dialysis) 169/74 mmHg BP Standing (P ost-Dialysis) 132/51 mmHg Sitting Heart Rate Pre-Dialysis 62 BPM Sitting Heart Rate Post-Dialysis 63 BPM Standing Heart Rate Pre-Dialysis 62 BPM Standing Heart Rate Post-Dialysis 65 BPM Temperature Pre-Dialysis 98.1 degF Temperature Post -Dialysis 97.4 degF December 19, 2023 In-Center Hemodialysis Treatment 8320-39-25H84:15:19.000Z 9348-53-88K03:59:54.000Z BP Sitting (Pre-Dialysis) 165/64 mmHg BP Sitting (Post-Dialysis) 186/49 mmHg Concurrent Access: falseAV Fistula Upper Arm (Right) Arterial BP Standing (Pre-Dialysis) 169/86 mmHg BP Standing (P ost-Dialysis) 155/52 mmHg Sitting Heart Rate Pre-Dialysis 63 BPM Sitting Heart Rate Post-Dialysis 63 BPM Standing Heart Rate Pre-Dialysis 64 BPM Standing Heart Rate Post-Dialysis 67 BPM Temperature Pre-Dialysis 97.2 degF Temperature Post -Dialysis 97.6 degF December 17, 2023 In-Center Hemodialysis Treatment 0745-63-96P97:09:21.000Z 7976-14-47D32:24:46.000Z BP Sitting (Pre-Dialysis) 131/40 mmHg BP Sitting (Post-Dialysis) 152/64 mmHg Concurrent Access: falseAV Fistula Upper Arm (Right) Arterial BP Standing (Pre-Dialysis) 127/40 mmHg Sitti ng Heart Rate Post-Dialysis 72 BPM Sitting Heart Rate Pre-Dialysis 51 BPM Temperatu re Post-Dialysis 97.1 degF Standing Heart Rate Pre-Dialysis 52 BPM Temperature Pre-Dialysis 97.5 degF December 14, 2023 In-Center Hemodialysis Treatment 3380-51-59B18:18:00.000Z 4438-84-09W59:39:02.000Z BP Sitting (Pre-Dialysis) 151/59 mmHg BP Sitting (Post-Dialysis) 140/55 mmHg Concurrent Access: falseAV Fistula Upper Arm (Right) Arterial BP Standing (Pre-Dialysis) 154/64 mmHg Sitti ng Heart Rate Post-Dialysis 72 BPM Sitting Heart Rate Pre-Dialysis 53 BPM Temperatu re Post-Dialysis 97.2 degF Standing Heart Rate Pre-Dialysis 59 BPM Temperature Pre-Dialysis 97.6 degF December 12, 2023 In-Center Hemodialysis Treatment 7490-77-32O17:17:00.000Z 1114-37-09L27:40:17.000Z BP Sitting (Pre-Dialysis) 153/68 mmHg BP Sitting (Post-Dialysis) 127/53 mmHg Concurrent Access: falseAV Fistula Upper Arm (Right) Arterial BP Standing (Pre-Dialysis) 148/61 mmHg Sitti ng Heart Rate Post-Dialysis 78 BPM Sitting Heart Rate Pre-Dialysis 61 BPM Temperatu re Post-Dialysis 97.8 degF Standing Heart Rate Pre-Dialysis 63 BPM Temperature Pre-Dialysis 97.9 degF December 10, 2023 In-Center Hemodialysis Treatment 9605-78-41P21:15:00.000Z 9774-27-15F79:37:25.000Z BP Sitting (Pre-Dialysis) 139/51 mmHg BP Sitting (Post-Dialysis) 154/69 mmHg Concurrent Access: falseAV Fistula Upper Arm (Right) Arterial BP Standing (Pre-Dialysis) 130/52 mmHg Sitti ng Heart Rate Post-Dialysis 59 BPM Sitting Heart Rate Pre-Dialysis 65 BPM Temperatu re Post-Dialysis 97.2 degF Standing Heart Rate Pre-Dialysis 70 BPM Temperature Pre-Dialysis 97.8 degF December 07, 2023 In-Center Hemodialysis Treatment [id number]:28:30.000Z 7261-76-36H37:28:05.000Z BP Sitting (Pre-Dialysis) 166/82 mmHg BP Sitting (Post-Dialysis) 166/64 mmHg Concurrent Access: falseAV Fistula Upper Arm (Right) Arterial BP Standing (Pre-Dialysis) 157/71 mmHg Sitti ng Heart Rate Post-Dialysis 54 BPM Sitting Heart Rate Pre-Dialysis 71 BPM Temperatu re Post-Dialysis 98.2 degF Standing Heart Rate Pre-Dialysis 70 BPM Temperature Pre-Dialysis 97.8 degF December 05, 2023 In-Center Hemodialysis Treatment [id number]:13:04.000Z 5334-12-59U17:28:29.000Z BP Sitting (Pre-Dialysis) 149/87 mmHg BP Sitting (Post-Dialysis) 164/79 mmHg Concurrent Access: falseAV Fistula Upper Arm (Right) Arterial Sitting Heart Rate Pre-Dialysis 52 BPM BP Standing (Post-Dialysis) 174/101 mmHg Temperature Pre-Dialysis 97.2 degF Sitting Heart Ra te Post-Dialysis 84 BPM Standing Heart R ate Post-Dialysis 76 BPM Temperature Post-Dialysis 97 .6 degF December 03, 2023 In-Center Hemodialysis Treatment [id number]:14:00.000Z 5583-10-15V14:31:52.000Z BP Sitting (Pre-Dialysis) 141/60 mmHg BP Sitting (Post-Dialysis) 160/73 mmHg Concurrent Access: falseAV Fistula Upper Arm (Right) Arterial BP Standing (Pre-Dialysis) 153/59 mmHg BP Standing (P ost-Dialysis) 150/63 mmHg Sitting Heart Rate Pre-Dialysis 59 BPM Sitting Heart Rate Post-Dialysis 62 BPM Standing Heart Rate Pre-Dialysis 66 BPM Standing Heart Rate Post-Dialysis 78 BPM Temperature Pre-Dialysis 97.8 degF Temperature Post -Dialysis 97.8 degF November 30, 2023 In-Center Hemodialysis Treatment [id number]:19:58.000Z 6926-42-89L79:34:08.000Z BP Sitting (Pre-Dialysis) 173/61 mmHg BP Sitting (Post-Dialysis) 177/101 mmHg Concurrent Access: falseAV Fistula Upper Arm (Right) Arterial BP Standing (Pre-Dialysis) 175/60 mmHg BP Standing (P ost-Dialysis) 165/74 mmHg Sitting Heart Rate Pre-Dialysis 60 BPM Sitting Heart Rate Post-Dialysis 85 BPM Standing Heart Rate Pre-Dialysis 62 BPM Standing Heart Rate Post-Dialysis 74 BPM Temperature Pre-Dialysis 97 degF Temperature Post -Dialysis 97.4 degF November 28, 2023 In-Center Hemodialysis Treatment 9502-43-01Y22:02:00.000Z 8314-92-08N58:03:34.000Z BP Sitting (Pre-Dialysis) 169/58 mmHg BP Sitting (Post-Dialysis) 169/85 mmHg Concurrent Access: falseAV Fistula Upper Arm (Right) Arterial BP Standing (Pre-Dialysis) 161/59 mmHg Sitti ng Heart Rate Post-Dialysis 57 BPM Sitting Heart Rate Pre-Dialysis 60 BPM Temperatu re Post-Dialysis 96.3 degF Standing Heart Rate Pre-Dialysis 62 BPM Temperature Pre-Dialysis 97.4 degF November 26, 2023 In-Center Hemodialysis Treatment [id number]:26:13.000Z 6018-73-98F60:43:43.000Z BP Sitting (Pre-Dialysis) 155/62 mmHg BP Sitting (Post-Dialysis) 139/69 mmHg Concurrent Access: falseAV Fistula Upper Arm (Right) Arterial BP Standing (Pre-Dialysis) 150/60 mmHg Sitti ng Heart Rate Post-Dialysis 71 BPM Sitting Heart Rate Pre-Dialysis 51 BPM Temperatu re Post-Dialysis 97.8 degF Standing Heart Rate Pre-Dialysis 50 BPM Temperature Pre-Dialysis 97.7 degF November 23, 2023 In-Center Hemodialysis Treatment [id number]:15:32.000Z 2542-70-86X80:27:37.000Z BP Sitting (Pre-Dialysis) 145/62 mmHg BP Sitting (Post-Dialysis) 143/63 mmHg Concurrent Access: falseAV Fistula Upper Arm (Right) Arterial BP Standing (Pre-Dialysis) 140/59 mmHg BP Standing (P ost-Dialysis) 162/64 mmHg Sitting Heart Rate Pre-Dialysis 50 BPM Sitting Heart Rate Post-Dialysis 71 BPM Standing Heart Rate Pre-Dialysis 51 BPM Standing Heart Rate Post-Dialysis 69 BPM Temperature Pre-Dialysis 97.2 degF Temperature Post -Dialysis 97.7 degF November 21, 2023 In-Center Hemodialysis Treatment 2310-21-58R76:15:00.000Z 3878-85-62G60:29:26.000Z BP Sitting (Pre-Dialysis) 150/66 mmHg BP Sitting (Post-Dialysis) 190/64 mmHg Concurrent Access: falseAV Fistula Upper Arm (Right) Arterial BP Standing (Pre-Dialysis) 147/64 mmHg Sitti ng Heart Rate Post-Dialysis 69 BPM Sitting Heart Rate Pre-Dialysis 62 BPM Temperatu re Post-Dialysis 98.2 degF Standing Heart Rate Pre-Dialysis 68 BPM Temperature Pre-Dialysis 97.8 degF November 19, 2023 In-Center Hemodialysis Treatment 3288-12-24W78:25:57.000Z 1884-34-06E97:42:37.000Z BP Sitting (Pre-Dialysis) 199/76 mmHg BP Sitting (Post-Dialysis) 174/72 mmHg Concurrent Access: falseAV Fistula Upper Arm (Right) Arterial BP Standing (Pre-Dialysis) 183/63 mmHg Sitti ng Heart Rate Post-Dialysis 66 BPM Sitting Heart Rate Pre-Dialysis 61 BPM Temperatu re Post-Dialysis 97.7 degF Standing Heart Rate Pre-Dialysis 64 BPM Temperature Pre-Dialysis 98.2 degF November 16, 2023 In-Center Hemodialysis Treatment 7044-22-52H25:09:53.000Z 6500-96-18J94:36:33.000Z BP Sitting (Pre-Dialysis) 135/56 mmHg BP Sitting (Post-Dialysis) 128/97 mmHg Concurrent Access: falseAV Fistula Upper Arm (Right) Arterial BP Standing (Pre-Dialysis) 152/54 mmHg BP Standing (P ost-Dialysis) 164/70 mmHg Sitting Heart Rate Pre-Dialysis 63 BPM Sitting Heart Rate Post-Dialysis 70 BPM Standing Heart Rate Pre-Dialysis 65 BPM Standing Heart Rate Post-Dialysis 72 BPM Temperature Pre-Dialysis 97.6 degF Temperature Post -Dialysis 97.2 degF November 14, 2023 In-Center Hemodialysis Treatment [id number]:16:00.000Z 6436-13-24F55:29:51.000Z BP Sitting (Pre-Dialysis) 169/63 mmHg BP Sitting (Post-Dialysis) 181/85 mmHg Concurrent Access: falseAV Fistula Upper Arm (Right) Arterial BP Standing (Pre-Dialysis) 142/46 mmHg Sitti ng Heart Rate Post-Dialysis 87 BPM Sitting Heart Rate Pre-Dialysis 65 BPM Temperatu re Post-Dialysis 98.2 degF Standing Heart Rate Pre-Dialysis 74 BPM Temperature Pre-Dialysis 97.7 degF November 12, 2023 In-Center Hemodialysis Treatment 5600-45-08C94:13:00.000Z 2219-08-08R92:31:52.000Z BP Sitting (Pre-Dialysis) 155/60 mmHg BP Sitting (Post-Dialysis) 145/54 mmHg Concurrent Access: falseAV Fistula Upper Arm (Right) Arterial BP Standing (Pre-Dialysis) 157/72 mmHg Sitti ng Heart Rate Post-Dialysis 56 BPM Sitting Heart Rate Pre-Dialysis 58 BPM Temperatu re Post-Dialysis 97.2 degF Standing Heart Rate Pre-Dialysis 69 BPM Temperature Pre-Dialysis 97.4 degF November 09, 2023 In-Center Hemodialysis Treatment 1300-95-02S66:28:00.000Z 1722-32-10H79:42:00.000Z BP Sitting (Pre-Dialysis) 167/95 mmHg BP Sitting (Post-Dialysis) 175/60 mmHg Concurrent Access: falseAV Fistula Upper Arm (Right) Arterial BP Standing (Pre-Dialysis) 179/99 mmHg Sitti ng Heart Rate Post-Dialysis 66 BPM Sitting Heart Rate Pre-Dialysis 61 BPM Temperatu re Post-Dialysis 97.2 degF Standing Heart Rate Pre-Dialysis 61 BPM Temperature Pre-Dialysis 97.8 degF November 07, 2023 In-Center Hemodialysis Treatment 3529-24-73Z16:08:05.000Z 7050-80-04E70:27:57.000Z BP Sitting (Pre-Dialysis) 166/69 mmHg BP Sitting (Post-Dialysis) 147/61 mmHg Concurrent Access: falseAV Fistula Upper Arm (Right) Arterial BP Standing (Pre-Dialysis) 153/77 mmHg Sitti ng Heart Rate Post-Dialysis 63 BPM Sitting Heart Rate Pre-Dialysis 62 BPM Temperatu re Post-Dialysis 97.2 degF Standing Heart Rate Pre-Dialysis 78 BPM Temperature Pre-Dialysis 98.1 degF November 05, 2023 In-Center Hemodialysis Treatment 4664-37-62H44:19:56.000Z 2318-79-82X50:46:11.000Z BP Sitting (Pre-Dialysis) 180/79 mmHg BP Sitting (Post-Dialysis) 168/69 mmHg Concurrent Access: falseAV Fistula Upper Arm (Right) Arterial BP Standing (Pre-Dialysis) 171/80 mmHg Sitti ng Heart Rate Post-Dialysis 69 BPM Sitting Heart Rate Pre-Dialysis 62 BPM Temperatu re Post-Dialysis 98.2 degF Standing Heart Rate Pre-Dialysis 62 BPM Temperature Pre-Dialysis 97 degF November 02, 2023 In-Center Hemodialysis Treatment 2744-47-50H97:12:04.000Z 4918-44-55A70:32:40.000Z BP Sitting (Pre-Dialysis) 152/61 mmHg BP Sitting (Post-Dialysis) 170/62 mmHg Concurrent Access: falseAV Fistula Upper Arm (Right) Arterial Sitting Heart Rate Pre-Dialysis 62 BPM Sitting H eart Rate Post-Dialysis 69 BPM Temperature Pre-Dialysis 97.6 degF Temperature Post -Dialysis 97.2 degF October 31, 2023 In-Center Hemodialysis Treatment 9868-84-20L15:15:00.000Z 6117-98-49N13:50:41.000Z BP Sitting (Pre-Dialysis) 181/75 mmHg BP Sitting (Post-Dialysis) 177/66 mmHg Concurrent Access: falseAV Fistula Upper Arm (Right) Arterial BP Standing (Pre-Dialysis) 160/55 mmHg Sitti ng Heart Rate Post-Dialysis 58 BPM Sitting Heart Rate Pre-Dialysis 58 BPM Temperatu re Post-Dialysis 97.8 degF Standing Heart Rate Pre-Dialysis 62 BPM Temperature Pre-Dialysis 97.4 degF October 29, 2023 In-Center Hemodialysis Treatment 4910-31-23V92:21:11.000Z 5157-29-93I81:40:46.000Z BP Sitting (Pre-Dialysis) 179/68 mmHg BP Sitting (Post-Dialysis) 167/85 mmHg Concurrent Access: falseAV Fistula Upper Arm (Right) Arterial BP Standing (Pre-Dialysis) 169/72 mmHg Sitti ng Heart Rate Post-Dialysis 64 BPM Sitting Heart Rate Pre-Dialysis 63 BPM Temperatu re Post-Dialysis 97.2 degF Standing Heart Rate Pre-Dialysis 72 BPM Temperature Pre-Dialysis 97.6 degF October 26, 2023 In-Center Hemodialysis Treatment 2619-29-45D25:20:00.000Z 3877-97-44C63:45:14.000Z BP Sitting (Pre-Dialysis) 150/70 mmHg BP Sitting (Post-Dialysis) 176/60 mmHg Concurrent Access: falseAV Fistula Upper Arm (Right) Arterial BP Standing (Pre-Dialysis) 149/77 mmHg BP Standing (P ost-Dialysis) 134/90 mmHg Sitting Heart Rate Pre-Dialysis 64 BPM Sitting Heart Rate Post-Dialysis 59 BPM Standing Heart Rate Pre-Dialysis 78 BPM Standing Heart Rate Post-Dialysis 80 BPM Temperature Pre-Dialysis 98.1 degF Temperature Post -Dialysis 97.6 degF October 24, 2023 In-Center Hemodialysis Treatment 8716-30-91D81:18:00.000Z 2686-50-99L74:34:37.000Z BP Sitting (Pre-Dialysis) 150/82 mmHg BP Sitting (Post-Dialysis) 136/68 mmHg Concurrent Access: falseAV Fistula Upper Arm (Right) Arterial BP Standing (Pre-Dialysis) 149/73 mmHg Sitti ng Heart Rate Post-Dialysis 62 BPM Sitting Heart Rate Pre-Dialysis 59 BPM Temperatu re Post-Dialysis 98.2 degF Standing Heart Rate Pre-Dialysis 65 BPM Temperature Pre-Dialysis 97.9 degF October 22, 2023 In-Center Hemodialysis Treatment 0264-51-30O86:11:00.000Z 4607-39-22E90:26:50.000Z BP Sitting (Pre-Dialysis) 164/74 mmHg BP Sitting (Post-Dialysis) 145/69 mmHg Concurrent Access: falseAV Fistula Upper Arm (Right) Arterial BP Standing (Pre-Dialysis) 165/71 mmHg Sitti ng Heart Rate Post-Dialysis 58 BPM Sitting Heart Rate Pre-Dialysis 75 BPM Temperatu re Post-Dialysis 97.2 degF Standing Heart Rate Pre-Dialysis 75 BPM Temperature Pre-Dialysis 97.8 degF October 19, 2023 In-Center Hemodialysis Treatment 0912-84-54N31:14:00.000Z 0741-88-79T29:38:12.000Z BP Sitting (Pre-Dialysis) 155/58 mmHg BP Sitting (Post-Dialysis) 165/54 mmHg Concurrent Access: falseAV Fistula Upper Arm (Right) Arterial BP Standing (Pre-Dialysis) 153/89 mmHg Sitti ng Heart Rate Post-Dialysis 51 BPM Sitting Heart Rate Pre-Dialysis 54 BPM Temperatu re Post-Dialysis 97.8 degF Standing Heart Rate Pre-Dialysis 61 BPM Temperature Pre-Dialysis 97.5 degF October 17, 2023 In-Center Hemodialysis Treatment 2272-79-03X08:21:00.000Z 9751-02-10J64:54:15.000Z BP Sitting (Pre-Dialysis) 124/62 mmHg BP Sitting (Post-Dialysis) 188/56 mmHg Concurrent Access: falseAV Fistula Upper Arm (Right) Arterial BP Standing (Pre-Dialysis) 123/45 mmHg Sitting Heart Rate Post-Dialysis 59 BPM Sitting Heart Rate Pre-Dialysis 69 BPM Temperatu re Post-Dialysis 97 degF Standing Heart Rate Pre-Dialysis 68 BPM Temperature Pre-Dialysis 97.9 degF October 15, 2023 In-Center Hemodialysis Treatment 5910-71-09J62:26:16.000Z 9946-13-32J62:45:01.000Z BP Sitting (Pre-Dialysis) 152/62 mmHg BP Sitting (Post-Dialysis) 164/63 mmHg Concurrent Access: falseAV Fistula Upper Arm (Right) Arterial BP Standing (Pre-Dialysis) 145/60 mmHg Sitti ng Heart Rate Post-Dialysis 74 BPM Sitting Heart Rate Pre-Dialysis 60 BPM Temperatu re Post-Dialysis 97.2 degF Standing Heart Rate Pre-Dialysis 62 BPM Temperature Pre-Dialysis 97.2 degF October 12, 2023 In-Center Hemodialysis Treatment 2979-18-68U98:03:00.000Z 6280-12-84W21:20:46.000Z BP Sitting (Pre-Dialysis) 145/68 mmHg BP Sitting (Post-Dialysis) 158/65 mmHg Concurrent Access: falseAV Fistula Upper Arm (Right) Arterial BP Standing (Pre-Dialysis) 133/56 mmHg BP Standing (P ost-Dialysis) 146/70 mmHg Sitting Heart Rate Pre-Dialysis 60 BPM Sitting Heart Rate Post-Dialysis 64 BPM Standing Heart Rate Pre-Dialysis 62 BPM Standing Heart Rate Post-Dialysis 66 BPM Temperature Pre-Dialysis 97.8 degF Temperature Post -Dialysis 97.7 degF October 10, 2023 In-Center Hemodialysis Treatment 7652-81-96S16:19:00.000Z 8714-52-88D49:54:36.000Z BP Sitting (Pre-Dialysis) 129/46 mmHg BP Sitting (Post-Dialysis) 151/70 mmHg Concurrent Access: falseAV Fistula Upper Arm (Right) Arterial BP Standing (Pre-Dialysis) 137/67 mmHg Sitti ng Heart Rate Post-Dialysis 66 BPM Sitting Heart Rate Pre-Dialysis 59 BPM Temperatu re Post-Dialysis 97.2 degF Standing Heart Rate Pre-Dialysis 68 BPM Temperature Pre-Dialysis 97.3 degF October 08, 2023 In-Center Hemodialysis Treatment 9270-58-94D32:04:49.000Z 8397-36-11B06:25:39.000Z BP Sitting (Pre-Dialysis) 146/62 mmHg BP Sitting (Post-Dialysis) 165/68 mmHg Concurrent Access: falseAV Fistula Upper Arm (Right) Arterial Sitting Heart Rate Pre-Dialysis 63 BPM Sitting H eart Rate Post-Dialysis 66 BPM Temperature Pre-Dialysis 98.2 degF Temperature Post -Dialysis 98 degF October 05, 2023 In-Center Hemodialysis Treatment 0998-89-15K42:16:30.000Z 5398-92-36D73:35:40.000Z BP Sitting (Pre-Dialysis) 138/53 mmHg BP Sitting (Post-Dialysis) 145/59 mmHg Concurrent Access: falseAV Fistula Upper Arm (Right) Arterial BP Standing (Pre-Dialysis) 127/61 mmHg Sitti ng Heart Rate Post-Dialysis 69 BPM Sitting Heart Rate Pre-Dialysis 61 BPM Temperatu re Post-Dialysis 98.2 degF Standing Heart Rate Pre-Dialysis 49 BPM Temperature Pre-Dialysis 97.2 degF October 03, 2023 In-Center Hemodialysis Treatment 4944-61-69P81:17:00.000Z 4120-34-41G56:26:32.000Z BP Sitting (Pre-Dialysis) 144/58 mmHg BP Sitting (Post-Dialysis) 144/52 mmHg Concurrent Access: falseAV Fistula Upper Arm (Right) Arterial BP Standing (Pre-Dialysis) 137/57 mmHg BP Standing (P ost-Dialysis) 152/55 mmHg Sitting Heart Rate Pre-Dialysis 50 BPM Sitting Heart Rate Post-Dialysis 68 BPM Standing Heart Rate Pre-Dialysis 65 BPM Standing Heart Rate Post-Dialysis 69 BPM Temperature Pre-Dialysis 97.5 degF Temperature Post -Dialysis 97.2 degF October 01, 2023 In-Center Hemodialysis Treatment 4419-94-77E55:28:58.000Z 6109-82-75O64:51:53.000Z BP Sitting (Pre-Dialysis) 157/52 mmHg BP Sitting (Post-Dialysis) 168/69 mmHg Concurrent Access: falseAV Fistula Upper Arm (Right) Arterial Sitting Heart Rate Pre-Dialysis 59 BPM BP Standing (Post-Dialysis) 142/57 mmHg Temperature Pre-Dialysis 97.6 degF Sitting Heart Ra te Post-Dialysis 63 BPM Standing Heart Rate Post-Karina lysis 69 BPM Temperature Post-Dialysis 97 .8 degF September 28, 2023 In-Center Hemodialysis Treatment 4233-57-58X24:09:38.000Z 5876-32-97E79:23:48.000Z BP Sitting (Pre-Dialysis) 145/58 mmHg BP Sitting (Post-Dialysis) 154/62 mmHg Concurrent Access: falseAV Fistula Upper Arm (Right) Arterial BP Standing (Pre-Dialysis) 142/52 mmHg BP Standing (P ost-Dialysis) 150/60 mmHg Sitting Heart Rate Pre-Dialysis 75 BPM Sitting Heart Rate Post-Dialysis 62 BPM Standing Heart Rate Pre-Dialysis 56 BPM Standing Heart Rate Post-Dialysis 60 BPM Temperature Pre-Dialysis 98.2 degF Temperature Post -Dialysis 97.8 degF September 26, 2023 In-Center Hemodialysis Treatment 7386-98-65W44:16:00.000Z 3808-85-14U09:44:39.000Z BP Sitting (Pre-Dialysis) 149/52 mmHg BP Sitting (Post-Dialysis) 158/94 mmHg Concurrent Access: falseAV Fistula Upper Arm (Right) Arterial BP Standing (Pre-Dialysis) 128/58 mmHg Sitti ng Heart Rate Post-Dialysis 63 BPM Sitting Heart Rate Pre-Dialysis 55 BPM Temperatu re Post-Dialysis 97.2 degF Standing Heart Rate Pre-Dialysis 52 BPM Temperature Pre-Dialysis 97.8 degF September 24, 2023 In-Center Hemodialysis Treatment 5370-79-80I28:12:26.000Z 8525-14-46F94:30:46.000Z BP Sitting (Pre-Dialysis) 157/57 mmHg BP Sitting (Post-Dialysis) 165/70 mmHg Concurrent Access: falseAV Fistula Upper Arm (Right) Arterial BP Standing (Pre-Dialysis) 146/66 mmHg BP Standing (P ost-Dialysis) 159/63 mmHg Sitting Heart Rate Pre-Dialysis 57 BPM Sitting Heart Rate Post-Dialysis 58 BPM Standing Heart Rate Pre-Dialysis 60 BPM Standing Heart Rate Post-Dialysis 58 BPM Temperature Pre-Dialysis 97.2 degF Temperature Post -Dialysis 98.2 degF September 21, 2023 In-Center Hemodialysis Treatment 6146-42-92H45:07:00.000Z 8072-03-78E71:21:57.000Z BP Sitting (Pre-Dialysis) 149/73 mmHg BP Sitting (Post-Dialysis) 169/62 mmHg Concurrent Access: falseAV Fistula Upper Arm (Right) Arterial BP Standing (Pre-Dialysis) 147/75 mmHg Sitti ng Heart Rate Post-Dialysis 52 BPM Sitting Heart Rate Pre-Dialysis 61 BPM Temperatu re Post-Dialysis 97.2 degF Standing Heart Rate Pre-Dialysis 71 BPM Temperature Pre-Dialysis 97.9 degF September 19, 2023 In-Center Hemodialysis Treatment 1127-28-17I49:15:00.000Z 5001-31-28B69:42:56.000Z BP Sitting (Pre-Dialysis) 183/85 mmHg BP Sitting (Post-Dialysis) 189/77 mmHg Concurrent Access: falseAV Fistula Upper Arm (Right) Arterial BP Standing (Pre-Dialysis) 188/70 mmHg Sitti ng Heart Rate Post-Dialysis 72 BPM Sitting Heart Rate Pre-Dialysis 70 BPM Temperatu re Post-Dialysis 97.2 degF Standing Heart Rate Pre-Dialysis 74 BPM Temperature Pre-Dialysis 97.8 degF September 17, 2023 In-Center Hemodialysis Treatment 8222-50-25E19:23:00.000Z 3415-03-78F69:09:01.000Z BP Sitting (Pre-Dialysis) 167/71 mmHg BP Sitting (Post-Dialysis) 167/69 mmHg Concurrent Access: falseAV Fistula Upper Arm (Right) Arterial BP Standing (Pre-Dialysis) 162/66 mmHg Sitti ng Heart Rate Post-Dialysis 62 BPM Sitting Heart Rate Pre-Dialysis 59 BPM Temperatu re Post-Dialysis 97.8 degF Standing Heart Rate Pre-Dialysis 59 BPM Temperature Pre-Dialysis 97.8 degF September 14, 2023 In-Center Hemodialysis Treatment 9010-57-82J63:20:17.000Z 9558-04-22F44:37:22.000Z BP Sitting (Pre-Dialysis) 137/59 mmHg BP Sitting (Post-Dialysis) 169/66 mmHg Concurrent Access: falseAV Fistula Upper Arm (Right) Arterial BP Standing (Pre-Dialysis) 158/60 mmHg BP Standing (P ost-Dialysis) 152/54 mmHg Sitting Heart Rate Pre-Dialysis 61 BPM Sitting Heart Rate Post-Dialysis 66 BPM Standing Heart Rate Pre-Dialysis 64 BPM Standing Heart Rate Post-Dialysis 60 BPM Temperature Pre-Dialysis 97.2 degF Temperature Post -Dialysis 97.9 degF September 12, 2023 In-Center Hemodialysis Treatment 5196-46-24D18:07:00.000Z 1938-02-89H27:24:28.000Z BP Sitting (Pre-Dialysis) 140/51 mmHg BP Sitting (Post-Dialysis) 132/65 mmHg Concurrent Access: falseAV Fistula Upper Arm (Right) Arterial BP Standing (Pre-Dialysis) 143/50 mmHg Sitti ng Heart Rate Post-Dialysis 70 BPM Sitting Heart Rate Pre-Dialysis 64 BPM Temperatu re Post-Dialysis 97.6 degF Standing Heart Rate Pre-Dialysis 58 BPM Temperature Pre-Dialysis 97.8 degF September 10, 2023 In-Center Hemodialysis Treatment 0937-69-51L34:19:00.000Z 7120-97-18X48:44:37.000Z BP Sitting (Pre-Dialysis) 146/56 mmHg BP Sitting (Post-Dialysis) 154/62 mmHg Concurrent Access: falseAV Fistula Upper Arm (Right) Arterial BP Standing (Pre-Dialysis) 145/56 mmHg Sitti ng Heart Rate Post-Dialysis 71 BPM Sitting Heart Rate Pre-Dialysis 53 BPM Temperatu re Post-Dialysis 97.8 degF Standing Heart Rate Pre-Dialysis 60 BPM Temperature Pre-Dialysis 97.8 degF September 07, 2023 In-Center Hemodialysis Treatment 7090-93-90P51:34:00.000Z 5113-97-13S52:54:36.000Z BP Sitting (Pre-Dialysis) 136/52 mmHg BP Sitting (Post-Dialysis) 145/53 mmHg Concurrent Access: falseAV Fistula Upper Arm (Right) Arterial BP Standing (Pre-Dialysis) 133/56 mmHg BP Standing (P ost-Dialysis) 144/53 mmHg Sitting Heart Rate Pre-Dialysis 65 BPM Sitting Heart Rate Post-Dialysis 48 BPM Standing Heart Rate Pre-Dialysis 52 BPM Standing Heart Rate Post-Dialysis 68 BPM Temperature Pre-Dialysis 97.8 degF Temperature Post -Dialysis 97.7 degF September 05, 2023 In-Center Hemodialysis Treatment 3524-82-01W43:04:00.000Z 4702-55-35H82:29:22.000Z BP Sitting (Pre-Dialysis) 136/49 mmHg BP Sitting (Post-Dialysis) 136/59 mmHg Concurrent Access: falseAV Fistula Upper Arm (Right) Arterial BP Standing (Pre-Dialysis) 153/56 mmHg BP Standing (P ost-Dialysis) 114/60 mmHg Sitting Heart Rate Pre-Dialysis 47 BPM Sitting Heart Rate Post-Dialysis 60 BPM Standing Heart Rate Pre-Dialysis 55 BPM Standing Heart Rate Post-Dialysis 62 BPM Temperature Pre-Dialysis 97.8 degF Temperature Post -Dialysis 97.2 degF September 03, 2023 In-Center Hemodialysis Treatment [id number]:43:00.000Z 2610-78-39L72:50:50.000Z BP Sitting (Pre-Dialysis) 155/99 mmHg BP Sitting (Post-Dialysis) 149/64 mmHg Concurrent Access: falseAV Fistula Upper Arm (Right) Arterial BP Standing (Pre-Dialysis) 161/59 mmHg Sitti ng Heart Rate Post-Dialysis 67 BPM Sitting Heart Rate Pre-Dialysis 70 BPM Temperatu re Post-Dialysis 97.6 degF Standing Heart Rate Pre-Dialysis 64 BPM Temperature Pre-Dialysis 97.8 degF August 31, 2023 In-Center Hemodialysis Treatment 6790-29-99O57:04:00.000Z 4650-95-34U77:29:19.000Z BP Sitting (Pre-Dialysis) 148/55 mmHg BP Sitting (Post-Dialysis) 128/59 mmHg Concurrent Access: falseAV Fistula Upper Arm (Right) Arterial BP Standing (Pre-Dialysis) 155/43 mmHg Sitti ng Heart Rate Post-Dialysis 69 BPM Sitting Heart Rate Pre-Dialysis 53 BPM Temperatu re Post-Dialysis 97.8 degF Standing Heart Rate Pre-Dialysis 58 BPM Temperature Pre-Dialysis 97.5 degF August 29, 2023 In-Center Hemodialysis Treatment 7690-58-25A39:08:00.000Z 9217-71-29G18:33:00.000Z BP Sitting (Pre-Dialysis) 138/56 mmHg BP Sitting (Post-Dialysis) 135/55 mmHg Concurrent Access: falseAV Fistula Upper Arm (Right) Arterial BP Standing (Pre-Dialysis) 138/66 mmHg Sitti ng Heart Rate Post-Dialysis 59 BPM Sitting Heart Rate Pre-Dialysis 55 BPM Temperatu re Post-Dialysis 97.6 degF Standing Heart Rate Pre-Dialysis 54 BPM Temperature Pre-Dialysis 97.6 degF August 27, 2023 In-Center Hemodialysis Treatment 2284-23-47N03:22:00.000Z 8358-67-51J47:42:05.000Z BP Sitting (Pre-Dialysis) 175/71 mmHg BP Sitting (Post-Dialysis) 181/63 mmHg Concurrent Access: falseAV Fistula Upper Arm (Right) Arterial BP Standing (Pre-Dialysis) 148/83 mmHg Sitti ng Heart Rate Post-Dialysis 61 BPM Sitting Heart Rate Pre-Dialysis 69 BPM Temperatu re Post-Dialysis 97.6 degF Standing Heart Rate Pre-Dialysis 68 BPM Temperature Pre-Dialysis 97.6 degF August 24, 2023 In-Center Hemodialysis Treatment 4878-13-08H77:22:59.000Z 0813-34-32A68:50:29.000Z BP Sitting (Pre-Dialysis) 159/52 mmHg BP Sitting (Post-Dialysis) 134/88 mmHg Concurrent Access: falseAV Fistula Upper Arm (Right) Arterial BP Standing (Pre-Dialysis) 156/48 mmHg Sitting Heart Rate Post-Dialysis 71 BPM Sitting Heart Rate Pre-Dialysis 62 BPM Temperatu re Post-Dialysis 97 degF Standing Heart Rate Pre-Dialysis 64 BPM Temperature Pre-Dialysis 97.2 degF August 22, 2023 In-Center Hemodialysis Treatment 7017-74-40F25:13:00.000Z 3922-98-67F51:35:55.000Z BP Sitting (Pre-Dialysis) 140/54 mmHg BP Sitting (Post-Dialysis) 153/55 mmHg Concurrent Access: falseAV Fistula Upper Arm (Right) Arterial BP Standing (Pre-Dialysis) 154/64 mmHg Sitti ng Heart Rate Post-Dialysis 64 BPM Sitting Heart Rate Pre-Dialysis 50 BPM Temperatu re Post-Dialysis 97.2 degF Standing Heart Rate Pre-Dialysis 65 BPM Temperature Pre-Dialysis 97.6 degF August 20, 2023 In-Center Hemodialysis Treatment 8656-82-41J12:28:00.000Z 6686-55-96X97:50:51.000Z BP Sitting (Pre-Dialysis) 142/61 mmHg BP Sitting (Post-Dialysis) 160/73 mmHg Concurrent Access: falseAV Fistula Upper Arm (Right) Arterial BP Standing (Pre-Dialysis) 147/76 mmHg Sitti ng Heart Rate Post-Dialysis 54 BPM Sitting Heart Rate Pre-Dialysis 68 BPM Temperatu re Post-Dialysis 97.5 degF Standing Heart Rate Pre-Dialysis 64 BPM Temperature Pre-Dialysis 98.1 degF August 17, 2023 In-Center Hemodialysis Treatment 7356-95-41D34:21:00.000Z 6673-34-72F00:42:15.000Z BP Sitting (Pre-Dialysis) 135/61 mmHg BP Sitting (Post-Dialysis) 158/63 mmHg Concurrent Access: falseAV Fistula Upper Arm (Right) Arterial BP Standing (Pre-Dialysis) 139/56 mmHg Sitti ng Heart Rate Post-Dialysis 62 BPM Sitting Heart Rate Pre-Dialysis 62 BPM Temperatu re Post-Dialysis 97.7 degF Standing Heart Rate Pre-Dialysis 61 BPM Temperature Pre-Dialysis 98.1 degF August 15, 2023 In-Center Hemodialysis Treatment 4090-43-50E35:21:00.000Z 0591-88-23D41:38:45.000Z BP Sitting (Pre-Dialysis) 144/52 mmHg BP Sitting (Post-Dialysis) 157/59 mmHg Concurrent Access: falseAV Fistula Upper Arm (Right) Arterial BP Standing (Pre-Dialysis) 140/60 mmHg BP Standing (P ost-Dialysis) 136/64 mmHg Sitting Heart Rate Pre-Dialysis 64 BPM Sitting Heart Rate Post-Dialysis 62 BPM Standing Heart Rate Pre-Dialysis 66 BPM Standing Heart Rate Post-Dialysis 69 BPM Temperature Pre-Dialysis 98.1 degF Temperature Post -Dialysis 98 degF August 13, 2023 In-Center Hemodialysis Treatment [id number]:28:59.000Z [id number]:41:29.000Z BP Sitting (Pre-Dialysis) 157/65 mmHg BP Sitting (Post-Dialysis) 171/69 mmHg Concurrent Access: falseAV Fistula Upper Arm (Right) Arterial BP Standing (Pre-Dialysis) 163/57 mmHg Sitti ng Heart Rate Post-Dialysis 64 BPM Sitting Heart Rate Pre-Dialysis 59 BPM Temperatu re Post-Dialysis 98.2 degF Standing Heart Rate Pre-Dialysis 59 BPM Temperature Pre-Dialysis 97.5 degF August 10, 2023 In-Center Hemodialysis Treatment [id number]:31:00.000Z 3087-11-33J04:56:16.000Z BP Sitting (Pre-Dialysis) 130/56 mmHg BP Sitting (Post-Dialysis) 145/69 mmHg Concurrent Access: falseAV Fistula Upper Arm (Right) Arterial BP Standing (Pre-Dialysis) 143/55 mmHg Sitti ng Heart Rate Post-Dialysis 49 BPM Sitting Heart Rate Pre-Dialysis 59 BPM Temperatu re Post-Dialysis 97.2 degF Standing Heart Rate Pre-Dialysis 56 BPM Temperature Pre-Dialysis 98.1 degF August 08, 2023 In-Center Hemodialysis Treatment 4535-57-00N70:04:29.000Z 2862-30-16W95:15:19.000Z BP Sitting (Pre-Dialysis) 137/60 mmHg BP Sitting (Post-Dialysis) 176/60 mmHg Concurrent Access: falseAV Fistula Upper Arm (Right) Arterial BP Standing (Pre-Dialysis) 134/62 mmHg Sitti ng Heart Rate Post-Dialysis 66 BPM Sitting Heart Rate Pre-Dialysis 59 BPM Temperatu re Post-Dialysis 97.2 degF Standing Heart Rate Pre-Dialysis 63 BPM Temperature Pre-Dialysis 97.2 degF August 06, 2023 In-Center Hemodialysis Treatment [id number]:05:17.000Z 4775-49-82H39:20:42.000Z BP Sitting (Pre-Dialysis) 143/70 mmHg BP Sitting (Post-Dialysis) 135/56 mmHg Concurrent Access: falseAV Fistula Upper Arm (Right) Arterial BP Standing (Pre-Dialysis) 145/65 mmHg BP Standing (P ost-Dialysis) 157/62 mmHg Sitting Heart Rate Pre-Dialysis 63 BPM Sitting Heart Rate Post-Dialysis 60 BPM Standing Heart Rate Pre-Dialysis 69 BPM Standing Heart Rate Post-Dialysis 76 BPM Temperature Pre-Dialysis 98.2 degF Temperature Post -Dialysis 97.2 degF August 03, 2023 In-Center Hemodialysis Treatment [id number]:25:20.000Z 6398-15-21S78:43:15.000Z BP Sitting (Pre-Dialysis) 153/59 mmHg BP Sitting (Post-Dialysis) 166/62 mmHg Concurrent Access: falseAV Fistula Upper Arm (Right) Arterial BP Standing (Pre-Dialysis) 145/73 mmHg BP Standing (P ost-Dialysis) 162/79 mmHg Sitting Heart Rate Pre-Dialysis 64 BPM Sitting Heart Rate Post-Dialysis 60 BPM Standing Heart Rate Pre-Dialysis 67 BPM Standing Heart Rate Post-Dialysis 74 BPM Temperature Pre-Dialysis 98.2 degF Temperature Post -Dialysis 97.3 degF August 01, 2023 In-Center Hemodialysis Treatment [id number]:36:29.000Z 9113-63-64L00:50:39.000Z BP Sitting (Pre-Dialysis) 147/74 mmHg BP Sitting (Post-Dialysis) 156/63 mmHg Concurrent Access: falseAV Fistula Upper Arm (Right) Arterial BP Standing (Pre-Dialysis) 151/74 mmHg BP Standing (P ost-Dialysis) 151/66 mmHg Sitting Heart Rate Pre-Dialysis 55 BPM Sitting Heart Rate Post-Dialysis 83 BPM Standing Heart Rate Pre-Dialysis 57 BPM Standing Heart Rate Post-Dialysis 83 BPM Temperature Pre-Dialysis 97.2 degF Temperature Post -Dialysis 97.2 degF July 27, 2023 In-Center Hemodialysis Treatment 5148-57-01I22:27:35.000Z 2517-50-54C73:40:00.000Z BP Sitting (Pre-Dialysis) 159/53 mmHg BP Sitting (Post-Dialysis) 136/84 mmHg Concurrent Access: falseAV Fistula Upper Arm (Right) Arterial BP Standing (Pre-Dialysis) 154/58 mmHg BP Standing (P ost-Dialysis) 148/74 mmHg Sitting Heart Rate Pre-Dialysis 50 BPM Sitting Heart Rate Post-Dialysis 65 BPM Standing Heart Rate Pre-Dialysis 58 BPM Standing Heart Rate Post-Dialysis 66 BPM Temperature Pre-Dialysis 97.6 degF Temperature Post -Dialysis 97.2 degF July 25, 2023 In-Center Hemodialysis Treatment [id number]:29:00.000Z 2057-44-20A56:03:24.000Z BP Sitting (Pre-Dialysis) 159/64 mmHg BP Sitting (Post-Dialysis) 169/69 mmHg Concurrent Access: falseAV Fistula Upper Arm (Right) Arterial BP Standing (Pre-Dialysis) 176/58 mmHg BP Standing (P ost-Dialysis) 191/65 mmHg Sitting Heart Rate Pre-Dialysis 55 BPM Sitting Heart Rate Post-Dialysis 70 BPM Standing Heart Rate Pre-Dialysis 66 BPM Standing Heart Rate Post-Dialysis 53 BPM Temperature Pre-Dialysis 97 degF Temperature Post -Dialysis 97.2 degF July 23, 2023 In-Center Hemodialysis Treatment [id number]:19:00.000Z 4214-07-00R52:39:28.000Z BP Sitting (Pre-Dialysis) 183/82 mmHg BP Sitting (Post-Dialysis) 170/67 mmHg Concurrent Access: falseAV Fistula Upper Arm (Right) Arterial BP Standing (Pre-Dialysis) 163/67 mmHg Sitti ng Heart Rate Post-Dialysis 73 BPM Sitting Heart Rate Pre-Dialysis 84 BPM Temperatu re Post-Dialysis 97.2 degF Standing Heart Rate Pre-Dialysis 55 BPM Temperature Pre-Dialysis 97.1 degF July 20, 2023 In-Center Hemodialysis Treatment [id number]:13:00.000Z 3651-02-66Y10:31:25.000Z BP Sitting (Pre-Dialysis) 165/64 mmHg BP Sitting (Post-Dialysis) 194/69 mmHg Concurrent Access: falseAV Fistula Upper Arm (Right) Arterial BP Standing (Pre-Dialysis) 164/57 mmHg Sitti ng Heart Rate Post-Dialysis 60 BPM Sitting Heart Rate Pre-Dialysis 66 BPM Temperatu re Post-Dialysis 98.2 degF Standing Heart Rate Pre-Dialysis 64 BPM Temperature Pre-Dialysis 97.7 degF July 18, 2023 In-Center Hemodialysis Treatment 4795-31-76Q41:13:00.000Z 3095-90-12M04:45:05.000Z BP Sitting (Pre-Dialysis) 161/65 mmHg BP Sitting (Post-Dialysis) 170/55 mmHg Concurrent Access: falseAV Fistula Upper Arm (Right) Arterial BP Standing (Pre-Dialysis) 166/71 mmHg BP Standing (P ost-Dialysis) 144/71 mmHg Sitting Heart Rate Pre-Dialysis 61 BPM Sitting Heart Rate Post-Dialysis 64 BPM Standing Heart Rate Pre-Dialysis 62 BPM Standing Heart Rate Post-Dialysis 64 BPM Temperature Pre-Dialysis 97.1 degF Temperature Post -Dialysis 97.7 degF July 16, 2023 In-Center Hemodialysis Treatment [id number]:33:32.000Z 7298-11-57M75:51:52.000Z BP Sitting (Pre-Dialysis) 151/75 mmHg BP Sitting (Post-Dialysis) 169/72 mmHg Concurrent Access: falseAV Fistula Upper Arm (Right) Arterial BP Standing (Pre-Dialysis) 155/72 mmHg BP Standing (P ost-Dialysis) 165/70 mmHg Sitting Heart Rate Pre-Dialysis 50 BPM Sitting Heart Rate Post-Dialysis 59 BPM Standing Heart Rate Pre-Dialysis 57 BPM Standing Heart Rate Post-Dialysis 60 BPM Temperature Pre-Dialysis 97.2 degF Temperature Post -Dialysis 97.2 degF July 13, 2023 In-Center Hemodialysis Treatment [id number]:16:00.000Z 1176-50-72A49:35:00.000Z BP Sitting (Pre-Dialysis) 148/62 mmHg BP Sitting (Post-Dialysis) 160/68 mmHg Concurrent Access: falseAV Fistula Upper Arm (Right) Arterial BP Standing (Pre-Dialysis) 152/57 mmHg BP Standing (P ost-Dialysis) 137/65 mmHg Sitting Heart Rate Pre-Dialysis 48 BPM Sitting Heart Rate Post-Dialysis 56 BPM Standing Heart Rate Pre-Dialysis 53 BPM Standing Heart Rate Post-Dialysis 55 BPM Temperature Pre-Dialysis 98.4 degF Temperature Post -Dialysis 97.5 degF July 11, 2023 In-Center Hemodialysis Treatment 7410-84-50W00:26:00.000Z 4185-50-61U62:44:49.000Z BP Sitting (Pre-Dialysis) 159/68 mmHg BP Sitting (Post-Dialysis) 155/59 mmHg Concurrent Access: falseAV Fistula Upper Arm (Right) Arterial BP Standing (Pre-Dialysis) 165/63 mmHg BP Standing (P ost-Dialysis) 137/66 mmHg Sitting Heart Rate Pre-Dialysis 62 BPM Sitting Heart Rate Post-Dialysis 61 BPM Standing Heart Rate Pre-Dialysis 62 BPM Standing Heart Rate Post-Dialysis 64 BPM Temperature Pre-Dialysis 97.2 degF Temperature Post -Dialysis 97.7 degF July 08, 2023 In-Center Hemodialysis Treatment 9178-08-94M25:27:00.000Z 4603-73-31H95:27:25.000Z BP Sitting (Pre-Dialysis) 148/83 mmHg BP Sitting (Post-Dialysis) 161/52 mmHg Concurrent Access: falseAV Fistula Upper Arm (Right) Arterial BP Standing (Pre-Dialysis) 162/66 mmHg BP Standing (P ost-Dialysis) 164/87 mmHg Sitting Heart Rate Pre-Dialysis 60 BPM Sitting Heart Rate Post-Dialysis 70 BPM Standing Heart Rate Pre-Dialysis 54 BPM Standing Heart Rate Post-Dialysis 70 BPM Temperature Pre-Dialysis 97 degF Temperature Post -Dialysis 97.7 degF July 06, 2023 In-Center Hemodialysis Treatment 3739-20-29I56:24:00.000Z 6784-64-19H58:43:06.000Z BP Sitting (Pre-Dialysis) 142/61 mmHg BP Sitting (Post-Dialysis) 153/101 mmHg Concurrent Access: falseAV Fistula Upper Arm (Right) Arterial BP Standing (Pre-Dialysis) 133/59 mmHg BP Standing (P ost-Dialysis) 148/63 mmHg Sitting Heart Rate Pre-Dialysis 54 BPM Sitting Heart Rate Post-Dialysis 52 BPM Standing Heart Rate Pre-Dialysis 60 BPM Standing Heart Rate Post-Dialysis 63 BPM Temperature Pre-Dialysis 97.7 degF Temperature Post -Dialysis 98 degF July 04, 2023 In-Center Hemodialysis Treatment 3862-74-28O16:22:00.000Z 5909-26-86X70:42:04.000Z BP Sitting (Pre-Dialysis) 139/57 mmHg BP Sitting (Post-Dialysis) 149/69 mmHg Concurrent Access: falseAV Fistula Upper Arm (Right) Arterial BP Standing (Pre-Dialysis) 158/72 mmHg BP Standing (P ost-Dialysis) 139/63 mmHg Sitting Heart Rate Pre-Dialysis 54 BPM Sitting Heart Rate Post-Dialysis 58 BPM Standing Heart Rate Pre-Dialysis 58 BPM Standing Heart Rate Post-Dialysis 50 BPM Temperature Pre-Dialysis 97.9 degF Temperature Post -Dialysis 98.2 degF July 01, 2023 In-Center Hemodialysis Treatment 7537-52-60C39:54:00.000Z 9889-80-84E13:59:12.000Z BP Sitting (Pre-Dialysis) 151/68 mmHg BP Sitting (Post-Dialysis) 149/61 mmHg Concurrent Access: falseAV Fistula Upper Arm (Right) Arterial BP Standing (Pre-Dialysis) 163/50 mmHg Sitti ng Heart Rate Post-Dialysis 58 BPM Sitting Heart Rate Pre-Dialysis 61 BPM Temperatu re Post-Dialysis 97.3 degF Standing Heart Rate Pre-Dialysis 61 BPM Temperature Pre-Dialysis 98.1 degF June 29, 2023 In-Center Hemodialysis Treatment 4459-19-62Z67:22:00.000Z 7308-08-35X37:40:20.000Z BP Sitting (Pre-Dialysis) 117/55 mmHg BP Sitting (Post-Dialysis) 136/63 mmHg Concurrent Access: falseAV Fistula Upper Arm (Right) Arterial BP Standing (Pre-Dialysis) 137/52 mmHg Sitti ng Heart Rate Post-Dialysis 78 BPM Sitting Heart Rate Pre-Dialysis 62 BPM Temperatu re Post-Dialysis 97.6 degF Standing Heart Rate Pre-Dialysis 51 BPM Temperature Pre-Dialysis 97.6 degF June 27, 2023 In-Center Hemodialysis Treatment 7588-78-31B19:31:59.000Z 2862-59-57H79:51:34.000Z BP Sitting (Pre-Dialysis) 139/45 mmHg BP Sitting (Post-Dialysis) 143/59 mmHg Concurrent Access: falseAV Fistula Upper Arm (Right) Arterial BP Standing (Pre-Dialysis) 163/53 mmHg Sitti ng Heart Rate Post-Dialysis 57 BPM Sitting Heart Rate Pre-Dialysis 62 BPM Temperatu re Post-Dialysis 97.7 degF Standing Heart Rate Pre-Dialysis 61 BPM Temperature Pre-Dialysis 97.2 degF June 25, 2023 In-Center Hemodialysis Treatment 6922-09-74J57:13:49.000Z 8814-72-58Z34:35:54.000Z BP Sitting (Pre-Dialysis) 195/75 mmHg BP Sitting (Post-Dialysis) 158/71 mmHg Concurrent Access: falseAV Fistula Upper Arm (Right) Arterial BP Standing (Pre-Dialysis) 191/79 mmHg Sitti ng Heart Rate Post-Dialysis 58 BPM Sitting Heart Rate Pre-Dialysis 66 BPM Temperatu re Post-Dialysis 97.6 degF Standing Heart Rate Pre-Dialysis 68 BPM Temperature Pre-Dialysis 97.2 degF June 22, 2023 In-Center Hemodialysis Treatment [id number]:17:58.000Z 6443-65-15D88:33:48.000Z BP Sitting (Pre-Dialysis) 203/62 mmHg BP Sitting (Post-Dialysis) 185/67 mmHg Concurrent Access: falseAV Fistula Upper Arm (Right) Arterial BP Standing (Pre-Dialysis) 199/60 mmHg BP Standing (P ost-Dialysis) 150/72 mmHg Sitting Heart Rate Pre-Dialysis 65 BPM Sitting Heart Rate Post-Dialysis 70 BPM Standing Heart Rate Pre-Dialysis 66 BPM Standing Heart Rate Post-Dialysis 86 BPM Temperature Pre-Dialysis 98 degF Temperature Post -Dialysis 97.2 degF June 20, 2023 In-Center Hemodialysis Treatment [id number]:16:00.000Z 0658-16-56U15:32:46.000Z BP Sitting (Pre-Dialysis) 140/59 mmHg BP Sitting (Post-Dialysis) 176/72 mmHg Concurrent Access: falseAV Fistula Upper Arm (Right) Arterial BP Standing (Pre-Dialysis) 147/57 mmHg Sitti ng Heart Rate Post-Dialysis 59 BPM Sitting Heart Rate Pre-Dialysis 51 BPM Temperatu re Post-Dialysis 97.2 degF Standing Heart Rate Pre-Dialysis 59 BPM Temperature Pre-Dialysis 97.7 degF June 18, 2023 In-Center Hemodialysis Treatment 6166-18-25R32:15:00.000Z 9508-69-19W50:39:00.000Z BP Sitting (Pre-Dialysis) 138/52 mmHg BP Sitting (Post-Dialysis) 131/56 mmHg Concurrent Access: falseAV Fistula Upper Arm (Right) Arterial BP Standing (Pre-Dialysis) 139/49 mmHg Sitti ng Heart Rate Post-Dialysis 78 BPM Sitting Heart Rate Pre-Dialysis 56 BPM Temperatu re Post-Dialysis 97.2 degF Standing Heart Rate Pre-Dialysis 58 BPM Temperature Pre-Dialysis 97.4 degF June 15, 2023 In-Center Hemodialysis Treatment 6874-74-15A59:21:42.000Z 5562-79-15V81:46:42.000Z BP Sitting (Pre-Dialysis) 132/55 mmHg BP Sitting (Post-Dialysis) 172/71 mmHg Concurrent Access: falseAV Fistula Upper Arm (Right) Arterial BP Standing (Pre-Dialysis) 123/66 mmHg Sitti ng Heart Rate Post-Dialysis 68 BPM Sitting Heart Rate Pre-Dialysis 54 BPM Temperatu re Post-Dialysis 97.2 degF Standing Heart Rate Pre-Dialysis 79 BPM Temperature Pre-Dialysis 97.7 degF June 13, 2023 In-Center Hemodialysis Treatment 1315-39-25Z43:28:57.000Z 2093-78-40L11:43:57.000Z BP Sitting (Pre-Dialysis) 144/58 mmHg BP Sitting (Post-Dialysis) 148/57 mmHg Concurrent Access: falseAV Fistula Upper Arm (Right) Arterial BP Standing (Pre-Dialysis) 143/66 mmHg BP Standing (P ost-Dialysis) 134/54 mmHg Sitting Heart Rate Pre-Dialysis 59 BPM Sitting Heart Rate Post-Dialysis 65 BPM Standing Heart Rate Pre-Dialysis 69 BPM Standing Heart Rate Post-Dialysis 74 BPM Temperature Pre-Dialysis 97.6 degF Temperature Post -Dialysis 97.6 degF June 11, 2023 In-Center Hemodialysis Treatment 8376-50-32L54:10:07.000Z 9632-41-22N26:27:37.000Z BP Sitting (Pre-Dialysis) 141/68 mmHg BP Sitting (Post-Dialysis) 146/60 mmHg Concurrent Access: falseAV Fistula Upper Arm (Right) Arterial BP Standing (Pre-Dialysis) 108/58 mmHg Sitti ng Heart Rate Post-Dialysis 66 BPM Sitting Heart Rate Pre-Dialysis 65 BPM Temperatu re Post-Dialysis 97.2 degF Standing Heart Rate Pre-Dialysis 62 BPM Temperature Pre-Dialysis 97.2 degF June 06, 2023 In-Center Hemodialysis Treatment 8233-02-95U22:18:00.000Z 8139-47-25Q30:47:05.000Z BP Sitting (Pre-Dialysis) 165/75 mmHg BP Sitting (Post-Dialysis) 160/58 mmHg Concurrent Access: falseAV Fistula Upper Arm (Right) Arterial BP Standing (Pre-Dialysis) 132/46 mmHg BP Standing (P ost-Dialysis) 135/59 mmHg Sitting Heart Rate Pre-Dialysis 75 BPM Sitting Heart Rate Post-Dialysis 61 BPM Standing Heart Rate Pre-Dialysis 75 BPM Standing Heart Rate Post-Dialysis 61 BPM Temperature Pre-Dialysis 97.8 degF Temperature Post -Dialysis 97.2 degF June 04, 2023 In-Center Hemodialysis Treatment 5793-95-80W88:21:29.000Z 1236-62-18X57:47:44.000Z BP Sitting (Pre-Dialysis) 147/47 mmHg BP Sitting (Post-Dialysis) 147/57 mmHg Concurrent Access: falseAV Fistula Upper Arm (Right) Arterial BP Standing (Pre-Dialysis) 123/43 mmHg Sitti ng Heart Rate Post-Dialysis 65 BPM Sitting Heart Rate Pre-Dialysis 48 BPM Temperatu re Post-Dialysis 97.8 degF Standing Heart Rate Pre-Dialysis 60 BPM Temperature Pre-Dialysis 97.7 degF June 01, 2023 In-Center Hemodialysis Treatment [id number]:10:59.000Z 3555-68-36N72:44:19.000Z BP Sitting (Pre-Dialysis) 145/60 mmHg BP Sitting (Post-Dialysis) 154/64 mmHg Concurrent Access: falseAV Fistula Upper Arm (Right) Arterial BP Standing (Pre-Dialysis) 150/60 mmHg Sitting Heart Rate Post-Dialysis 65 BPM Sitting Heart Rate Pre-Dialysis 69 BPM Temperatu re Post-Dialysis 98 degF Standing Heart Rate Pre-Dialysis 64 BPM Temperature Pre-Dialysis 98.2 degF May 29, 2023 In-Center Hemodialysis Treatment 3873-63-53Y79:34:40.000Z 5899-91-24L10:33:50.000Z BP Sitting (Pre-Dialysis) 170/59 mmHg BP Sitting (Post-Dialysis) 161/61 mmHg Concurrent Access: falseAV Fistula Upper Arm (Right) Arterial BP Standing (Pre-Dialysis) 168/70 mmHg BP Standing (P ost-Dialysis) 155/69 mmHg Sitting Heart Rate Pre-Dialysis 60 BPM Sitting Heart Rate Post-Dialysis 62 BPM Standing Heart Rate Pre-Dialysis 50 BPM Standing Heart Rate Post-Dialysis 69 BPM Temperature Pre-Dialysis 98 degF Temperature Post -Dialysis 98.2 degF May 27, 2023 In-Center Hemodialysis Treatment 1114-75-75W77:23:06.000Z 6230-49-83F96:23:06.000Z BP Sitting (Pre-Dialysis) 149/63 mmHg BP Sitting (Post-Dialysis) 163/61 mmHg Concurrent Access: falseAV Fistula Upper Arm (Right) Arterial BP Standing (Pre-Dialysis) 152/59 mmHg BP Standing (P ost-Dialysis) 153/63 mmHg Sitting Heart Rate Pre-Dialysis 61 BPM Sitting Heart Rate Post-Dialysis 59 BPM Standing Heart Rate Pre-Dialysis 65 BPM Standing Heart Rate Post-Dialysis 68 BPM Temperature Pre-Dialysis 98.1 degF May 25, 2023 In-Center Hemodialysis Treatment 9468-45-04H17:33:30.000Z 2595-13-16J22:54:20.000Z BP Sitting (Pre-Dialysis) 127/73 mmHg BP Sitting (Post-Dialysis) 169/99 mmHg Concurrent Access: falseAV Fistula Upper Arm (Right) Arterial BP Standing (Pre-Dialysis) 133/74 mmHg BP Standing (P ost-Dialysis) 165/57 mmHg Sitting Heart Rate Pre-Dialysis 62 BPM Sitting Heart Rate Post-Dialysis 57 BPM Standing Heart Rate Pre-Dialysis 60 BPM Standing Heart Rate Post-Dialysis 64 BPM Temperature Pre-Dialysis 97.2 degF Temperature Post -Dialysis 97.2 degF May 23, 2023 In-Center Hemodialysis Treatment 3895-03-26W54:15:00.000Z 1325-07-17K34:35:23.000Z BP Sitting (Pre-Dialysis) 148/62 mmHg BP Sitting (Post-Dialysis) 155/89 mmHg Concurrent Access: falseAV Fistula Upper Arm (Right) Arterial Sitting Heart Rate Pre-Dialysis 61 BPM Sitting H eart Rate Post-Dialysis 57 BPM Temperature Pre-Dialysis 97.3 degF Temperature Post -Dialysis 97.2 degF May 21, 2023 In-Center Hemodialysis Treatment 6171-27-47D79:17:00.000Z 8185-81-20H09:36:12.000Z BP Sitting (Pre-Dialysis) 133/71 mmHg BP Sitting (Post-Dialysis) 134/39 mmHg Concurrent Access: falseAV Fistula Upper Arm (Right) Arterial BP Standing (Pre-Dialysis) 137/65 mmHg Sitti ng Heart Rate Post-Dialysis 53 BPM Sitting Heart Rate Pre-Dialysis 62 BPM Temperatu re Post-Dialysis 97.4 degF Standing Heart Rate Pre-Dialysis 57 BPM Temperature Pre-Dialysis 97.9 degF May 18, 2023 In-Center Hemodialysis Treatment 6941-37-56R70:16:00.000Z 8661-52-10O03:48:24.000Z BP Sitting (Pre-Dialysis) 114/49 mmHg BP Sitting (Post-Dialysis) 119/60 mmHg Concurrent Access: falseAV Fistula Upper Arm (Right) Arterial BP Standing (Pre-Dialysis) 121/50 mmHg Sitti ng Heart Rate Post-Dialysis 73 BPM Sitting Heart Rate Pre-Dialysis 58 BPM Temperatu re Post-Dialysis 97.2 degF Standing Heart Rate Pre-Dialysis 64 BPM Temperature Pre-Dialysis 97.6 degF May 16, 2023 In-Center Hemodialysis Treatment 7140-69-32O11:06:00.000Z 9326-84-97B46:24:55.000Z BP Sitting (Pre-Dialysis) 130/62 mmHg BP Sitting (Post-Dialysis) 141/59 mmHg Concurrent Access: falseAV Fistula Upper Arm (Right) Arterial BP Standing (Pre-Dialysis) 126/54 mmHg BP Standing (P ost-Dialysis) 120/49 mmHg Sitting Heart Rate Pre-Dialysis 69 BPM Sitting Heart Rate Post-Dialysis 58 BPM Standing Heart Rate Pre-Dialysis 66 BPM Standing Heart Rate Post-Dialysis 56 BPM Temperature Pre-Dialysis 98.1 degF Temperature Post -Dialysis 98 degF May 14, 2023 In-Center Hemodialysis Treatment 5476-10-13Y40:11:00.000Z 3453-94-36U31:29:00.000Z BP Sitting (Pre-Dialysis) 161/71 mmHg BP Sitting (Post-Dialysis) 171/65 mmHg Concurrent Access: falseAV Fistula Upper Arm (Right) Arterial BP Standing (Pre-Dialysis) 165/69 mmHg Sitti ng Heart Rate Post-Dialysis 54 BPM Sitting Heart Rate Pre-Dialysis 65 BPM Temperatu re Post-Dialysis 98.2 degF Standing Heart Rate Pre-Dialysis 65 BPM Temperature Pre-Dialysis 97.6 degF May 11, 2023 In-Center Hemodialysis Treatment 4997-21-87T19:23:28.000Z 4566-60-84O52:26:48.000Z BP Sitting (Pre-Dialysis) 136/51 mmHg BP Sitting (Post-Dialysis) 129/64 mmHg Concurrent Access: falseAV Fistula Upper Arm (Right) Arterial Sitting Heart Rate Pre-Dialysis 54 BPM BP Standing (Post-Dialysis) 122/50 mmHg Temperature Pre-Dialysis 97.7 degF Sitting Heart Ra te Post-Dialysis 55 BPM Standing Heart Rate Post-Karina lysis 54 BPM Temperature Post-Dialysis 97 .6 degF May 09, 2023 In-Center Hemodialysis Treatment 8450-14-50Z63:21:57.000Z 4164-22-00E54:37:22.000Z BP Sitting (Pre-Dialysis) 141/56 mmHg BP Sitting (Post-Dialysis) 159/67 mmHg Concurrent Access: falseAV Fistula Upper Arm (Right) Arterial BP Standing (Pre-Dialysis) 145/58 mmHg Sitti ng Heart Rate Post-Dialysis 53 BPM Sitting Heart Rate Pre-Dialysis 53 BPM Temperatu re Post-Dialysis 97.6 degF Standing Heart Rate Pre-Dialysis 53 BPM Temperature Pre-Dialysis 97.4 degF May 07, 2023 In-Center Hemodialysis Treatment 9897-91-29G20:00:00.000Z 2273-78-50S43:21:17.000Z BP Sitting (Pre-Dialysis) 160/59 mmHg BP Sitting (Post-Dialysis) 188/80 mmHg Concurrent Access: falseAV Fistula Upper Arm (Right) Arterial BP Standing (Pre-Dialysis) 159/58 mmHg Sitti ng Heart Rate Post-Dialysis 55 BPM Sitting Heart Rate Pre-Dialysis 62 BPM Temperatu re Post-Dialysis 97.2 degF Standing Heart Rate Pre-Dialysis 66 BPM Temperature Pre-Dialysis 97.2 degF May 04, 2023 In-Center Hemodialysis Treatment 6116-17-37P24:14:51.000Z 1484-11-63E13:30:41.000Z BP Sitting (Pre-Dialysis) 129/51 mmHg BP Sitting (Post-Dialysis) 143/66 mmHg Concurrent Access: falseAV Fistula Upper Arm (Right) Arterial BP Standing (Pre-Dialysis) 95/36 mmHg Sitti ng Heart Rate Post-Dialysis 67 BPM Sitting Heart Rate Pre-Dialysis 52 BPM Temperatu re Post-Dialysis 97.8 degF Standing Heart Rate Pre-Dialysis 56 BPM Temperature Pre-Dialysis 97.6 degF May 02, 2023 In-Center Hemodialysis Treatment 3982-82-00P09:15:00.000Z 7877-36-14H77:22:36.000Z BP Sitting (Pre-Dialysis) 141/66 mmHg BP Sitting (Post-Dialysis) 140/56 mmHg Concurrent Access: falseAV Fistula Upper Arm (Right) Arterial BP Standing (Pre-Dialysis) 146/67 mmHg Sitting Heart Rate Post-Dialysis 63 BPM Sitting Heart Rate Pre-Dialysis 57 BPM Temperatu re Post-Dialysis 98 degF Standing Heart Rate Pre-Dialysis 67 BPM Temperature Pre-Dialysis 98.1 degF April 30, 2023 In-Center Hemodialysis Treatment 6244-53-12Q48:08:39.000Z 8071-45-60C94:26:59.000Z BP Sitting (Pre-Dialysis) 125/55 mmHg BP Sitting (Post-Dialysis) 149/69 mmHg Concurrent Access: falseAV Fistula Upper Arm (Right) Arterial Sitting Heart Rate Pre-Dialysis 43 BPM BP Standing (Post-Dialysis) 158/71 mmHg Temperature Pre-Dialysis 97.2 degF Sitting Heart Ra te Post-Dialysis 50 BPM Standing Heart Rate Post-Karina lysis 63 BPM Temperature Post-Dialysis 98 .2 degF April 27, 2023 In-Center Hemodialysis Treatment 5411-25-44A22:05:00.000Z 6809-93-11I60:25:35.000Z BP Sitting (Pre-Dialysis) 126/50 mmHg BP Sitting (Post-Dialysis) 144/61 mmHg Concurrent Access: falseAV Fistula Upper Arm (Right) Arterial BP Standing (Pre-Dialysis) 133/58 mmHg Sitti ng Heart Rate Post-Dialysis 52 BPM Sitting Heart Rate Pre-Dialysis 48 BPM Temperatu re Post-Dialysis 97.2 degF Standing Heart Rate Pre-Dialysis 57 BPM Temperature Pre-Dialysis 98.2 degF April 25, 2023 In-Center Hemodialysis Treatment 1886-02-00V32:00:00.000Z 3905-95-34O22:16:44.000Z BP Sitting (Pre-Dialysis) 119/60 mmHg BP Sitting (Post-Dialysis) 146/79 mmHg Concurrent Access: falseAV Fistula Upper Arm (Right) Arterial Sitting Heart Rate Pre-Dialysis 58 BPM Sitting H eart Rate Post-Dialysis 52 BPM Temperature Pre-Dialysis 98.2 degF Temperature Post -Dialysis 97.6 degF April 23, 2023 In-Center Hemodialysis Treatment 6240-65-74B46:25:00.000Z 5402-88-78I06:42:35.000Z BP Sitting (Pre-Dialysis) 144/66 mmHg BP Sitting (Post-Dialysis) 156/72 mmHg Concurrent Access: falseAV Fistula Upper Arm (Right) Arterial Sitting Heart Rate Pre-Dialysis 51 BPM BP Standing (Post-Dialysis) 148/70 mmHg Temperature Pre-Dialysis 98.2 degF Sitting Heart Ra te Post-Dialysis 54 BPM Standing Heart Rate Post-Karina lysis 62 BPM Temperature Post-Dialysis 97 .4 degF 2023 In-Center Hemodialysis Treatment 6455-27-21R69:15:00.000Z 7948-73-78Z07:34:04.000Z BP Sitting (Pre-Dialysis) 152/71 mmHg BP Sitting (Post-Dialysis) 143/60 mmHg Concurrent Access: falseAV Fistula Upper Arm (Right) Arterial BP Standing (Pre-Dialysis) 151/52 mmHg BP Standing (P ost-Dialysis) 143/63 mmHg Sitting Heart Rate Pre-Dialysis 62 BPM Sitting Heart Rate Post-Dialysis 52 BPM Standing Heart Rate Pre-Dialysis 71 BPM Standing Heart Rate Post-Dialysis 50 BPM Temperature Pre-Dialysis 98 degF Temperature Post -Dialysis 97.2 degF April 18, 2023 In-Center Hemodialysis Treatment 5984-77-07A18:19:37.000Z 8235-48-63D72:32:07.000Z BP Sitting (Pre-Dialysis) 118/55 mmHg BP Sitting (Post-Dialysis) 111/80 mmHg Concurrent Access: falseAV Fistula Upper Arm (Right) Arterial BP Standing (Pre-Dialysis) 120/54 mmHg Sitti ng Heart Rate Post-Dialysis 59 BPM Sitting Heart Rate Pre-Dialysis 52 BPM Temperatu re Post-Dialysis 98.2 degF Standing Heart Rate Pre-Dialysis 48 BPM Temperature Pre-Dialysis 98.2 degF April 16, 2023 In-Center Hemodialysis Treatment 3928-05-13S13:19:00.000Z 4585-90-90Y37:45:00.000Z BP Sitting (Pre-Dialysis) 126/55 mmHg BP Sitting (Post-Dialysis) 151/70 mmHg Concurrent Access: falseAV Fistula Upper Arm (Right) Arterial BP Standing (Pre-Dialysis) 105/75 mmHg Sitti ng Heart Rate Post-Dialysis 55 BPM Sitting Heart Rate Pre-Dialysis 55 BPM Temperatu re Post-Dialysis 97.9 degF Standing Heart Rate Pre-Dialysis 61 BPM Temperature Pre-Dialysis 98.1 degF April 13, 2023 In-Center Hemodialysis Treatment [id number]:13:00.000Z 7635-40-54W72:06:48.000Z BP Sitting (Pre-Dialysis) 103/50 mmHg BP Sitting (Post-Dialysis) 100/58 mmHg Concurrent Access: falseAV Fistula Upper Arm (Right) Arterial Sitting Heart Rate Pre-Dialysis 67 BPM Sitting H eart Rate Post-Dialysis 65 BPM Temperature Pre-Dialysis 96.8 degF Temperature Post -Dialysis 98.2 degF April 11, 2023 In-Center Hemodialysis Treatment [id number]:16:00.000Z 4826-62-82A40:37:14.000Z BP Sitting (Pre-Dialysis) 142/63 mmHg BP Sitting (Post-Dialysis) 115/56 mmHg Concurrent Access: falseAV Fistula Upper Arm (Right) Arterial BP Standing (Pre-Dialysis) 126/65 mmHg Sitti ng Heart Rate Post-Dialysis 65 BPM Sitting Heart Rate Pre-Dialysis 66 BPM Temperatu re Post-Dialysis 97.3 degF Standing Heart Rate Pre-Dialysis 67 BPM Temperature Pre-Dialysis 97.6 degF April 09, 2023 In-Center Hemodialysis Treatment [id number]:06:36.000Z 0648-24-20L51:22:01.000Z BP Sitting (Pre-Dialysis) 125/65 mmHg BP Sitting (Post-Dialysis) 164/64 mmHg Concurrent Access: falseAV Fistula Upper Arm (Right) Arterial BP Standing (Pre-Dialysis) 133/64 mmHg BP Standing (P ost-Dialysis) 154/69 mmHg Sitting Heart Rate Pre-Dialysis 69 BPM Sitting Heart Rate Post-Dialysis 63 BPM Standing Heart Rate Pre-Dialysis 68 BPM Standing Heart Rate Post-Dialysis 69 BPM Temperature Pre-Dialysis 97.2 degF Temperature Post -Dialysis 98 degF April 04, 2023 In-Center Hemodialysis Treatment [id number]:06:20.000Z 4968-57-44B08:27:17.000Z BP Sitting (Pre-Dialysis) 143/64 mmHg BP Sitting (Post-Dialysis) 148/55 mmHg Concurrent Access: falseAV Fistula Upper Arm (Right) Arterial BP Standing (Pre-Dialysis) 141/54 mmHg BP Standing (P ost-Dialysis) 167/66 mmHg Sitting Heart Rate Pre-Dialysis 65 BPM Sitting Heart Rate Post-Dialysis 63 BPM Standing Heart Rate Pre-Dialysis 67 BPM Standing Heart Rate Post-Dialysis 72 BPM Temperature Pre-Dialysis 97.2 degF Temperature Post -Dialysis 97.9 degF April 02, 2023 In-Center Hemodialysis Treatment [id number]:22:00.000Z [id number]:35:14.000Z BP Sitting (Pre-Dialysis) 148/67 mmHg BP Sitting (Post-Dialysis) 164/75 mmHg Concurrent Access: falseAV Fistula Upper Arm (Right) Arterial BP Standing (Pre-Dialysis) 145/56 mmHg Sitti ng Heart Rate Post-Dialysis 58 BPM Sitting Heart Rate Pre-Dialysis 60 BPM Temperatu re Post-Dialysis 97.4 degF Standing Heart Rate Pre-Dialysis 62 BPM Temperature Pre-Dialysis 97.7 degF March 30, 2023 In-Center Hemodialysis Treatment [id number]:07:44.000Z 7161-70-13Q29:32:17.000Z BP Sitting (Pre-Dialysis) 140/55 mmHg BP Sitting (Post-Dialysis) 142/56 mmHg Concurrent Access: falseAV Fistula Upper Arm (Right) Arterial BP Standing (Pre-Dialysis) 146/63 mmHg BP Standing (P ost-Dialysis) 153/62 mmHg Sitting Heart Rate Pre-Dialysis 58 BPM Sitting Heart Rate Post-Dialysis 65 BPM Standing Heart Rate Pre-Dialysis 66 BPM Standing Heart Rate Post-Dialysis 64 BPM Temperature Pre-Dialysis 97.6 degF Temperature Post -Dialysis 97.6 degF March 28, 2023 In-Center Hemodialysis Treatment [id number]:09:19.000Z 4289-45-12Q40:05:34.000Z BP Sitting (Pre-Dialysis) 149/56 mmHg BP Sitting (Post-Dialysis) 168/77 mmHg Concurrent Access: falseAV Fistula Upper Arm (Right) Arterial BP Standing (Pre-Dialysis) 163/73 mmHg Sitti ng Heart Rate Post-Dialysis 58 BPM Sitting Heart Rate Pre-Dialysis 53 BPM Temperatu re Post-Dialysis 97.2 degF Standing Heart Rate Pre-Dialysis 61 BPM Temperature Pre-Dialysis 98.2 degF March 26, 2023 In-Center Hemodialysis Treatment [id number]:12:08.000Z 4211-80-39C64:17:33.000Z BP Sitting (Pre-Dialysis) 127/58 mmHg BP Sitting (Post-Dialysis) 152/55 mmHg Concurrent Access: falseAV Fistula Upper Arm (Right) Arterial BP Standing (Pre-Dialysis) 149/61 mmHg Sitti ng Heart Rate Post-Dialysis 56 BPM Sitting Heart Rate Pre-Dialysis 62 BPM Temperatu re Post-Dialysis 97.7 degF Standing Heart Rate Pre-Dialysis 65 BPM Temperature Pre-Dialysis 97.7 degF March 23, 2023 In-Center Hemodialysis Treatment [id number]:27:14.000Z 1632-31-62M69:42:53.000Z BP Sitting (Pre-Dialysis) 163/54 mmHg BP Sitting (Post-Dialysis) 169/57 mmHg Concurrent Access: falseAV Fistula Upper Arm (Right) Arterial Sitting Heart Rate Pre-Dialysis 67 BPM Sitting H eart Rate Post-Dialysis 56 BPM Temperature Pre-Dialysis 98 degF Temperature Post -Dialysis 97.6 degF March 21, 2023 In-Center Hemodialysis Treatment 1262-54-08L97:54:40.000Z 2033-62-74C22:13:00.000Z BP Sitting (Pre-Dialysis) 128/59 mmHg BP Sitting (Post-Dialysis) 148/47 mmHg Concurrent Access: falseAV Fistula Upper Arm (Right) Arterial Sitting Heart Rate Pre-Dialysis 87 BPM Sitting H eart Rate Post-Dialysis 58 BPM Temperature Pre-Dialysis 99.1 degF Temperature Post -Dialysis 98.2 degF March 19, 2023 In-Center Hemodialysis Treatment 1049-10-97J16:17:46.000Z 3339-92-44V93:33:11.000Z BP Sitting (Pre-Dialysis) 135/52 mmHg BP Sitting (Post-Dialysis) 179/79 mmHg Concurrent Access: falseAV Fistula Upper Arm (Right) Arterial BP Standing (Pre-Dialysis) 155/49 mmHg BP Standing (P ost-Dialysis) 169/75 mmHg Sitting Heart Rate Pre-Dialysis 65 BPM Sitting Heart Rate Post-Dialysis 60 BPM Standing Heart Rate Pre-Dialysis 67 BPM Standing Heart Rate Post-Dialysis 68 BPM Temperature Pre-Dialysis 97.2 degF Temperature Post -Dialysis 97.2 degF March 16, 2023 In-Center Hemodialysis Treatment [id number]:16:50.000Z 1629-63-07O98:32:32.000Z BP Sitting (Pre-Dialysis) 169/75 mmHg BP Sitting (Post-Dialysis) 158/68 mmHg Concurrent Access: falseAV Fistula Upper Arm (Right) Arterial BP Standing (Pre-Dialysis) 172/70 mmHg Sitti ng Heart Rate Post-Dialysis 62 BPM Sitting Heart Rate Pre-Dialysis 69 BPM Temperatu re Post-Dialysis 97.2 degF Standing Heart Rate Pre-Dialysis 65 BPM Temperature Pre-Dialysis 97.2 degF March 14, 2023 In-Center Hemodialysis Treatment 3230-35-81M37:24:00.000Z 9715-27-51S74:43:56.000Z BP Sitting (Pre-Dialysis) 166/68 mmHg BP Sitting (Post-Dialysis) 167/57 mmHg Concurrent Access: falseAV Fistula Upper Arm (Right) Arterial BP Standing (Pre-Dialysis) 159/63 mmHg Sitti ng Heart Rate Post-Dialysis 61 BPM Sitting Heart Rate Pre-Dialysis 66 BPM Temperatu re Post-Dialysis 97.8 degF Standing Heart Rate Pre-Dialysis 73 BPM Temperature Pre-Dialysis 97.5 degF March 12, 2023 In-Center Hemodialysis Treatment [id number]:04:00.000Z 2900-94-09R21:29:04.000Z BP Sitting (Pre-Dialysis) 158/70 mmHg BP Sitting (Post-Dialysis) 153/68 mmHg Concurrent Access: falseAV Fistula Upper Arm (Right) Arterial BP Standing (Pre-Dialysis) 159/68 mmHg BP Standing (P ost-Dialysis) 147/85 mmHg Sitting Heart Rate Pre-Dialysis 68 BPM Sitting Heart Rate Post-Dialysis 70 BPM Standing Heart Rate Pre-Dialysis 69 BPM Standing Heart Rate Post-Dialysis 65 BPM Temperature Pre-Dialysis 97.6 degF Temperature Post -Dialysis 97.6 degF March 09, 2023 In-Center Hemodialysis Treatment [id number]:12:00.000Z 2332-83-76S60:31:00.000Z BP Sitting (Pre-Dialysis) 133/51 mmHg BP Sitting (Post-Dialysis) 151/54 mmHg Concurrent Access: falseAV Fistula Upper Arm (Right) Arterial BP Standing (Pre-Dialysis) 162/89 mmHg Sitti ng Heart Rate Post-Dialysis 59 BPM Sitting Heart Rate Pre-Dialysis 87 BPM Temperatu re Post-Dialysis 97.8 degF Standing Heart Rate Pre-Dialysis 94 BPM Temperature Pre-Dialysis 97.9 degF March 07, 2023 In-Center Hemodialysis Treatment 3624-89-38T00:26:00.000Z 8375-42-48J98:31:12.000Z BP Sitting (Pre-Dialysis) 130/87 mmHg BP Sitting (Post-Dialysis) 179/74 mmHg Concurrent Access: falseAV Fistula Upper Arm (Right) Arterial BP Standing (Pre-Dialysis) 139/58 mmHg BP Standing (P ost-Dialysis) 66/65 mmHg Sitting Heart Rate Pre-Dialysis 56 BPM Sitting Heart Rate Post-Dialysis 63 BPM Standing Heart Rate Pre-Dialysis 66 BPM Standing Heart Rate Post-Dialysis 59 BPM Temperature Pre-Dialysis 97.2 degF Temperature Post -Dialysis 97.4 degF March 05, 2023 In-Center Hemodialysis Treatment [id number]:02:46.000Z 3546-58-10E22:22:46.000Z BP Sitting (Pre-Dialysis) 149/70 mmHg BP Sitting (Post-Dialysis) 162/62 mmHg Concurrent Access: falseAV Fistula Upper Arm (Right) Arterial BP Standing (Pre-Dialysis) 146/70 mmHg Sitting Heart Rate Post-Dialysis 58 BPM Sitting Heart Rate Pre-Dialysis 69 BPM Standing Heart Rate Pre-Dialysis 67 BPM Temperature Pre-Dialysis 97.2 degF March 02, 2023 In-Center Hemodialysis Treatment 7838-35-63S69:12:11.000Z 1684-84-24M92:32:36.000Z BP Sitting (Pre-Dialysis) 161/75 mmHg BP Sitting (Post-Dialysis) 167/71 mmHg Concurrent Access: falseAV Fistula Upper Arm (Right) Arterial BP Standing (Pre-Dialysis) 160/67 mmHg BP Standing (P ost-Dialysis) 171/69 mmHg Sitting Heart Rate Pre-Dialysis 65 BPM Sitting Heart Rate Post-Dialysis 60 BPM Standing Heart Rate Pre-Dialysis 68 BPM Standing Heart Rate Post-Dialysis 65 BPM Temperature Pre-Dialysis 97.4 degF Temperature Post -Dialysis 97.6 degF February 28, 2023 In-Center Hemodialysis Treatment 5549-19-01I66:01:41.000Z 1241-30-37N53:22:06.000Z BP Sitting (Pre-Dialysis) 165/57 mmHg BP Sitting (Post-Dialysis) 191/75 mmHg Concurrent Access: falseAV Fistula Upper Arm (Right) Arterial Sitting Heart Rate Pre-Dialysis 60 BPM Sitting H eart Rate Post-Dialysis 58 BPM Temperature Pre-Dialysis 97.2 degF Temperature Post -Dialysis 97.6 degF February 26, 2023 In-Center Hemodialysis Treatment 4595-60-57Z77:11:00.000Z 6955-86-89R54:37:20.000Z BP Sitting (Pre-Dialysis) 152/66 mmHg BP Sitting (Post-Dialysis) 177/74 mmHg Concurrent Access: falseAV Fistula Upper Arm (Right) Arterial BP Standing (Pre-Dialysis) 157/56 mmHg Sitti ng Heart Rate Post-Dialysis 69 BPM Sitting Heart Rate Pre-Dialysis 60 BPM Temperatu re Post-Dialysis 97.4 degF Standing Heart Rate Pre-Dialysis 61 BPM Temperature Pre-Dialysis 98.1 degF February 23, 2023 In-Center Hemodialysis Treatment [id number]:10:00.000Z 2473-55-62A08:25:55.000Z BP Sitting (Pre-Dialysis) 162/51 mmHg BP Sitting (Post-Dialysis) 172/67 mmHg Concurrent Access: falseAV Fistula Upper Arm (Right) Arterial BP Standing (Pre-Dialysis) 145/69 mmHg Sitti ng Heart Rate Post-Dialysis 66 BPM Sitting Heart Rate Pre-Dialysis 64 BPM Temperatu re Post-Dialysis 97.4 degF Standing Heart Rate Pre-Dialysis 73 BPM Temperature Pre-Dialysis 97.4 degF February 21, 2023 In-Center Hemodialysis Treatment 8118-92-00J76:08:07.000Z 3484-12-00W77:19:47.000Z BP Sitting (Pre-Dialysis) 146/66 mmHg BP Sitting (Post-Dialysis) 199/85 mmHg Concurrent Access: falseAV Fistula Upper Arm (Right) Arterial BP Standing (Pre-Dialysis) 137/88 mmHg Sitti ng Heart Rate Post-Dialysis 75 BPM Sitting Heart Rate Pre-Dialysis 57 BPM Temperatu re Post-Dialysis 97.2 degF Standing Heart Rate Pre-Dialysis 65 BPM Temperature Pre-Dialysis 98.1 degF February 19, 2023 In-Center Hemodialysis Treatment 6352-04-93N12:12:00.000Z 1498-12-79S21:30:45.000Z BP Sitting (Pre-Dialysis) 146/52 mmHg BP Sitting (Post-Dialysis) 149/75 mmHg Concurrent Access: falseAV Fistula Upper Arm (Right) Arterial BP Standing (Pre-Dialysis) 170/78 mmHg BP Standing (P ost-Dialysis) 155/75 mmHg Sitting Heart Rate Pre-Dialysis 70 BPM Sitting Heart Rate Post-Dialysis 80 BPM Standing Heart Rate Pre-Dialysis 84 BPM Standing Heart Rate Post-Dialysis 78 BPM Temperature Pre-Dialysis 97.6 degF Temperature Post -Dialysis 97.6 degF February 16, 2023 In-Center Hemodialysis Treatment 4680-61-16C58:06:14.000Z 5528-52-17P85:27:18.000Z BP Sitting (Pre-Dialysis) 154/66 mmHg BP Sitting (Post-Dialysis) 182/77 mmHg Concurrent Access: falseAV Fistula Upper Arm (Right) Arterial BP Standing (Pre-Dialysis) 176/73 mmHg Sitti ng Heart Rate Post-Dialysis 70 BPM Sitting Heart Rate Pre-Dialysis 53 BPM Temperatu re Post-Dialysis 97.4 degF Standing Heart Rate Pre-Dialysis 59 BPM Temperature Pre-Dialysis 97.6 degF February 14, 2023 In-Center Hemodialysis Treatment 5199-91-32L11:20:00.000Z 5923-39-31X46:31:11.000Z BP Sitting (Pre-Dialysis) 163/64 mmHg BP Sitting (Post-Dialysis) 185/69 mmHg Concurrent Access: falseAV Fistula Upper Arm (Right) Arterial BP Standing (Pre-Dialysis) 142/78 mmHg Sitti ng Heart Rate Post-Dialysis 63 BPM Sitting Heart Rate Pre-Dialysis 58 BPM Temperatu re Post-Dialysis 97.4 degF Standing Heart Rate Pre-Dialysis 73 BPM Temperature Pre-Dialysis 97.6 degF February 12, 2023 In-Center Hemodialysis Treatment 4698-00-85U59:30:00.000Z 8623-71-24X92:47:23.000Z BP Sitting (Pre-Dialysis) 205/89 mmHg BP Sitting (Post-Dialysis) 183/86 mmHg Concurrent Access: falseAV Fistula Upper Arm (Right) Arterial BP Standing (Pre-Dialysis) 185/83 mmHg BP Standing (P ost-Dialysis) 172/82 mmHg Sitting Heart Rate Pre-Dialysis 70 BPM Sitting Heart Rate Post-Dialysis 71 BPM Standing Heart Rate Pre-Dialysis 72 BPM Standing Heart Rate Post-Dialysis 76 BPM Temperature Pre-Dialysis 97.4 degF Temperature Post -Dialysis 97.4 degF February 09, 2023 In-Center Hemodialysis Treatment 2602-49-89J00:25:00.000Z 9991-90-52J00:44:29.000Z BP Sitting (Pre-Dialysis) 170/80 mmHg BP Sitting (Post-Dialysis) 193/77 mmHg Concurrent Access: falseAV Fistula Upper Arm (Right) Arterial BP Standing (Pre-Dialysis) 155/69 mmHg BP Standing (P ost-Dialysis) 173/77 mmHg Sitting Heart Rate Pre-Dialysis 68 BPM Sitting Heart Rate Post-Dialysis 67 BPM Standing Heart Rate Pre-Dialysis 66 BPM Standing Heart Rate Post-Dialysis 81 BPM Temperature Pre-Dialysis 97.4 degF Temperature Post -Dialysis 97.4 degF February 07, 2023 In-Center Hemodialysis Treatment 7787-45-39F38:08:00.000Z 9507-98-63T68:27:57.000Z BP Sitting (Pre-Dialysis) 161/75 mmHg BP Sitting (Post-Dialysis) 163/92 mmHg Concurrent Access: falseAV Fistula Upper Arm (Right) Arterial BP Standing (Pre-Dialysis) 148/64 mmHg Sitti ng Heart Rate Post-Dialysis 75 BPM Sitting Heart Rate Pre-Dialysis 64 BPM Temperatu re Post-Dialysis 97.4 degF Standing Heart Rate Pre-Dialysis 68 BPM Temperature Pre-Dialysis 97.6 degF February 05, 2023 In-Center Hemodialysis Treatment 6837-47-24J36:00:00.000Z 4531-32-90P73:19:17.000Z BP Sitting (Pre-Dialysis) 171/72 mmHg BP Sitting (Post-Dialysis) 201/68 mmHg Concurrent Access: falseAV Fistula Upper Arm (Right) Arterial BP Standing (Pre-Dialysis) 194/70 mmHg BP Standing (P ost-Dialysis) 183/73 mmHg Sitting Heart Rate Pre-Dialysis 71 BPM Sitting Heart Rate Post-Dialysis 66 BPM Standing Heart Rate Pre-Dialysis 70 BPM Standing Heart Rate Post-Dialysis 74 BPM Temperature Pre-Dialysis 97.6 degF Temperature Post -Dialysis 97.6 degF February 02, 2023 In-Center Hemodialysis Treatment 1380-77-89W97:11:00.000Z 2471-16-52K33:28:30.000Z BP Sitting (Pre-Dialysis) 160/70 mmHg BP Sitting (Post-Dialysis) 176/72 mmHg Concurrent Access: falseAV Fistula Upper Arm (Right) Arterial BP Standing (Pre-Dialysis) 161/64 mmHg Sitti ng Heart Rate Post-Dialysis 58 BPM Sitting Heart Rate Pre-Dialysis 57 BPM Temperatu re Post-Dialysis 97.6 degF Standing Heart Rate Pre-Dialysis 69 BPM Temperature Pre-Dialysis 97.9 degF January 31, 2023 In-Center Hemodialysis Treatment 7274-44-20P05:56:30.000Z 4883-34-34N66:47:30.000Z BP Sitting (Pre-Dialysis) 169/78 mmHg BP Sitting (Post-Dialysis) 172/79 mmHg Concurrent Access: falseAV Fistula Upper Arm (Right) Arterial BP Standing (Pre-Dialysis) 160/70 mmHg BP Standing (P ost-Dialysis) 144/59 mmHg Sitting Heart Rate Pre-Dialysis 68 BPM Sitting Heart Rate Post-Dialysis 66 BPM Standing Heart Rate Pre-Dialysis 67 BPM Standing Heart Rate Post-Dialysis 67 BPM Temperature Pre-Dialysis 97.2 degF Temperature Post -Dialysis 97.6 degF January 29, 2023 In-Center Hemodialysis Treatment 2462-75-09H99:00:00.000Z 1244-38-03P53:24:49.000Z BP Sitting (Pre-Dialysis) 169/58 mmHg BP Sitting (Post-Dialysis) 136/54 mmHg Concurrent Access: falseAV Fistula Upper Arm (Right) Arterial BP Standing (Pre-Dialysis) 187/57 mmHg Sitti ng Heart Rate Post-Dialysis 57 BPM Sitting Heart Rate Pre-Dialysis 80 BPM Temperatu re Post-Dialysis 97.2 degF Standing Heart Rate Pre-Dialysis 87 BPM Temperature Pre-Dialysis 97.3 degF January 26, 2023 In-Center Hemodialysis Treatment 5364-43-67C42:05:49.000Z 7543-69-14B98:06:49.000Z BP Sitting (Pre-Dialysis) 159/59 mmHg BP Sitting (Post-Dialysis) 155/67 mmHg Concurrent Access: falseAV Fistula Upper Arm (Right) Arterial BP Standing (Pre-Dialysis) 165/68 mmHg BP Standing (P ost-Dialysis) 148/66 mmHg Sitting Heart Rate Pre-Dialysis 60 BPM Sitting Heart Rate Post-Dialysis 58 BPM Standing Heart Rate Pre-Dialysis 61 BPM Standing Heart Rate Post-Dialysis 67 BPM Temperature Pre-Dialysis 97.2 degF Temperature Post -Dialysis 97.2 degF January 24, 2023 In-Center Hemodialysis Treatment 3714-23-89D77:07:00.000Z 2825-16-17I97:24:57.000Z BP Sitting (Pre-Dialysis) 166/57 mmHg BP Sitting (Post-Dialysis) 187/67 mmHg Concurrent Access: falseAV Fistula Upper Arm (Right) Arterial BP Standing (Pre-Dialysis) 155/70 mmHg Sitti ng Heart Rate Post-Dialysis 65 BPM Sitting Heart Rate Pre-Dialysis 56 BPM Temperatu re Post-Dialysis 97.4 degF Standing Heart Rate Pre-Dialysis 65 BPM Temperature Pre-Dialysis 97.9 degF January 22, 2023 In-Center Hemodialysis Treatment 6438-59-41X92:17:00.000Z 0416-38-00H83:33:40.000Z BP Sitting (Pre-Dialysis) 173/71 mmHg BP Sitting (Post-Dialysis) 151/54 mmHg Concurrent Access: falseAV Fistula Upper Arm (Right) Arterial BP Standing (Pre-Dialysis) 190/80 mmHg BP Standing (P ost-Dialysis) 156/60 mmHg Sitting Heart Rate Pre-Dialysis 61 BPM Sitting Heart Rate Post-Dialysis 56 BPM Standing Heart Rate Pre-Dialysis 68 BPM Standing Heart Rate Post-Dialysis 59 BPM Temperature Pre-Dialysis 97.4 degF Temperature Post -Dialysis 97.4 degF January 19, 2023 In-Center Hemodialysis Treatment 6677-27-24E63:00:00.000Z 6109-36-61T27:24:24.000Z BP Sitting (Pre-Dialysis) 165/60 mmHg BP Sitting (Post-Dialysis) 164/55 mmHg Concurrent Access: falseAV Fistula Upper Arm (Right) Arterial BP Standing (Pre-Dialysis) 152/69 mmHg BP Standing (P ost-Dialysis) 161/59 mmHg Sitting Heart Rate Pre-Dialysis 70 BPM Sitting Heart Rate Post-Dialysis 54 BPM Standing Heart Rate Pre-Dialysis 71 BPM Standing Heart Rate Post-Dialysis 63 BPM Temperature Pre-Dialysis 97.2 degF Temperature Post -Dialysis 97.5 degF January 17, 2023 In-Center Hemodialysis Treatment 8930-87-33S79:17:00.000Z 9062-64-46E46:35:38.000Z BP Sitting (Pre-Dialysis) 135/47 mmHg BP Sitting (Post-Dialysis) 151/58 mmHg Concurrent Access: falseAV Fistula Upper Arm (Right) Arterial BP Standing (Pre-Dialysis) 135/58 mmHg Sitti ng Heart Rate Post-Dialysis 62 BPM Sitting Heart Rate Pre-Dialysis 51 BPM Temperatu re Post-Dialysis 97.9 degF Standing Heart Rate Pre-Dialysis 60 BPM Temperature Pre-Dialysis 97.9 degF January 15, 2023 In-Center Hemodialysis Treatment 7989-34-04J90:33:00.000Z 1818-06-52J79:31:29.000Z BP Sitting (Pre-Dialysis) 162/81 mmHg BP Sitting (Post-Dialysis) 150/62 mmHg Concurrent Access: falseAV Fistula Upper Arm (Right) Arterial BP Standing (Pre-Dialysis) 159/76 mmHg Sitting Heart Rate Post-Dialysis 62 BPM Sitting Heart Rate Pre-Dialysis 63 BPM Temperatu re Post-Dialysis 97 degF Standing Heart Rate Pre-Dialysis 72 BPM Temperature Pre-Dialysis 97.2 degF January 12, 2023 In-Center Hemodialysis Treatment [id number]:17:28.000Z 6243-72-27U49:31:27.000Z BP Sitting (Pre-Dialysis) 134/63 mmHg BP Sitting (Post-Dialysis) 177/60 mmHg Concurrent Access: falseAV Fistula Upper Arm (Right) Arterial BP Standing (Pre-Dialysis) 113/63 mmHg Sitti ng Heart Rate Post-Dialysis 54 BPM Sitting Heart Rate Pre-Dialysis 54 BPM Temperatu re Post-Dialysis 97.2 degF Standing Heart Rate Pre-Dialysis 66 BPM Temperature Pre-Dialysis 98.4 degF January 10, 2023 In-Center Hemodialysis Treatment [id number]:10:00.000Z 5341-08-19Z42:28:11.000Z BP Sitting (Pre-Dialysis) 124/54 mmHg BP Sitting (Post-Dialysis) 177/65 mmHg Concurrent Access: falseAV Fistula Upper Arm (Right) Arterial BP Standing (Pre-Dialysis) 137/62 mmHg BP Standing (P ost-Dialysis) 152/49 mmHg Sitting Heart Rate Pre-Dialysis 53 BPM Sitting Heart Rate Post-Dialysis 60 BPM Standing Heart Rate Pre-Dialysis 61 BPM Standing Heart Rate Post-Dialysis 58 BPM Temperature Pre-Dialysis 97.9 degF Temperature Post -Dialysis 97.8 degF January 08, 2023 In-Center Hemodialysis Treatment 6827-77-83S76:17:00.000Z 4933-94-47A47:17:44.000Z BP Sitting (Pre-Dialysis) 134/55 mmHg BP Sitting (Post-Dialysis) 162/75 mmHg Concurrent Access: falseAV Fistula Upper Arm (Right) Arterial BP Standing (Pre-Dialysis) 147/56 mmHg Sitti ng Heart Rate Post-Dialysis 62 BPM Sitting Heart Rate Pre-Dialysis 51 BPM Temperatu re Post-Dialysis 97.4 degF Standing Heart Rate Pre-Dialysis 67 BPM Temperature Pre-Dialysis 97.4 degF January 05, 2023 In-Center Hemodialysis Treatment 5295-76-21A95:05:35.000Z 6459-63-44P88:41:23.000Z BP Sitting (Pre-Dialysis) 139/69 mmHg BP Sitting (Post-Dialysis) 136/62 mmHg Concurrent Access: falseAV Fistula Upper Arm (Right) Arterial BP Standing (Pre-Dialysis) 140/65 mmHg BP Standing (P ost-Dialysis) 125/65 mmHg Sitting Heart Rate Pre-Dialysis 66 BPM Sitting Heart Rate Post-Dialysis 63 BPM Standing Heart Rate Pre-Dialysis 62 BPM Standing Heart Rate Post-Dialysis 74 BPM Temperature Pre-Dialysis 97.2 degF Temperature Post -Dialysis 97.5 degF January 03, 2023 In-Center Hemodialysis Treatment [id number]:13:00.000Z 4772-98-54R60:28:35.000Z BP Sitting (Pre-Dialysis) 145/62 mmHg BP Sitting (Post-Dialysis) 152/62 mmHg Concurrent Access: falseAV Fistula Upper Arm (Right) Arterial BP Standing (Pre-Dialysis) 136/64 mmHg Sitti ng Heart Rate Post-Dialysis 65 BPM Sitting Heart Rate Pre-Dialysis 74 BPM Temperatu re Post-Dialysis 97.2 degF Standing Heart Rate Pre-Dialysis 76 BPM Temperature Pre-Dialysis 97.4 degF January 01, 2023 In-Center Hemodialysis Treatment 2532-75-30G48:03:00.000Z 6203-25-80U44:21:39.000Z BP Sitting (Pre-Dialysis) 148/62 mmHg BP Sitting (Post-Dialysis) 155/55 mmHg Concurrent Access: falseAV Fistula Upper Arm (Right) Arterial BP Standing (Pre-Dialysis) 148/62 mmHg BP Standing (P ost-Dialysis) 145/60 mmHg Sitting Heart Rate Pre-Dialysis 71 BPM Sitting Heart Rate Post-Dialysis 59 BPM Standing Heart Rate Pre-Dialysis 71 BPM Standing Heart Rate Post-Dialysis 59 BPM Temperature Pre-Dialysis 97.1 degF Temperature Post -Dialysis 97.5 degF December 29, 2022 In-Center Hemodialysis Treatment 6645-78-72X83:20:29.000Z 0412-58-58L03:38:28.000Z BP Sitting (Pre-Dialysis) 171/96 mmHg BP Sitting (Post-Dialysis) 133/62 mmHg Concurrent Access: falseAV Fistula Upper Arm (Right) Arterial BP Standing (Pre-Dialysis) 161/81 mmHg Sitti ng Heart Rate Post-Dialysis 67 BPM Sitting Heart Rate Pre-Dialysis 93 BPM Temperatu re Post-Dialysis 97.4 degF Standing Heart Rate Pre-Dialysis 80 BPM Temperature Pre-Dialysis 97.7 degF December 22, 2022 In-Center Hemodialysis Treatment 8602-57-92L21:06:00.000Z 1457-14-90G62:10:02.000Z BP Sitting (Pre-Dialysis) 138/50 mmHg BP Sitting (Post-Dialysis) 159/64 mmHg Concurrent Access: falseAV Fistula Upper Arm (Right) Arterial BP Standing (Pre-Dialysis) 133/51 mmHg Sitti ng Heart Rate Post-Dialysis 83 BPM Sitting Heart Rate Pre-Dialysis 80 BPM Temperatu re Post-Dialysis 97.2 degF Standing Heart Rate Pre-Dialysis 83 BPM Temperature Pre-Dialysis 97.7 degF December 20, 2022 In-Center Hemodialysis Treatment 2873-63-73Y91:00:00.000Z 9386-65-20D97:05:00.000Z BP Sitting (Pre-Dialysis) 110/87 mmHg BP Sitting (Post-Dialysis) 111/87 mmHg Concurrent Access: falseAV Fistula Upper Arm (Right) Arterial BP Standing (Pre-Dialysis) 142/48 mmHg Sitti ng Heart Rate Post-Dialysis 87 BPM Sitting Heart Rate Pre-Dialysis 52 BPM Temperatu re Post-Dialysis 97.2 degF Standing Heart Rate Pre-Dialysis 52 BPM Temperature Pre-Dialysis 98.6 degF December 18, 2022 In-Center Hemodialysis Treatment [id number]:30:00.000Z 7020-51-98V27:35:38.000Z BP Sitting (Pre-Dialysis) 143/62 mmHg BP Sitting (Post-Dialysis) 136/64 mmHg Concurrent Access: falseAV Fistula Upper Arm (Right) Arterial BP Standing (Pre-Dialysis) 183/58 mmHg Sitting Heart Rate Post-Dialysis 65 BPM Sitting Heart Rate Pre-Dialysis 64 BPM Standing Heart Rate Pre-Dialysis 63 BPM Temperature Pre-Dialysis 97.7 degF December 15, 2022 In-Center Hemodialysis Treatment [id number]:12:25.000Z [id number]:14:25.000Z BP Sitting (Pre-Dialysis) 156/88 mmHg BP Sitting (Post-Dialysis) 132/66 mmHg Concurrent Access: falseAV Fistula Upper Arm (Right) Arterial Sitting Heart Rate Pre-Dialysis 78 BPM BP Standing (Post-Dialysis) 104/87 mmHg Temperature Pre-Dialysis 98.2 degF Sitting Heart Ra te Post-Dialysis 60 BPM Standing Heart Rate Post-Karina lysis 47 BPM Temperature Post-Dialysis 98 .1 degF December 13, 2022 In-Center Hemodialysis Treatment [id number]:08:00.000Z [id number]:36:13.000Z BP Sitting (Pre-Dialysis) 171/74 mmHg BP Sitting (Post-Dialysis) 139/68 mmHg Concurrent Access: falseAV Fistula Upper Arm (Right) Arterial BP Standing (Pre-Dialysis) 176/68 mmHg Sitti ng Heart Rate Post-Dialysis 98 BPM Sitting Heart Rate Pre-Dialysis 58 BPM Temperatu re Post-Dialysis 97.2 degF Standing Heart Rate Pre-Dialysis 57 BPM Temperature Pre-Dialysis 98.1 degF December 11, 2022 In-Center Hemodialysis Treatment [id number]:23:14.000Z 5943-46-16O58:46:57.000Z BP Sitting (Pre-Dialysis) 144/78 mmHg BP Sitting (Post-Dialysis) 164/73 mmHg Concurrent Access: falseAV Fistula Upper Arm (Right) Arterial BP Standing (Pre-Dialysis) 141/68 mmHg Sitti ng Heart Rate Post-Dialysis 53 BPM Sitting Heart Rate Pre-Dialysis 60 BPM Temperatu re Post-Dialysis 97.2 degF Standing Heart Rate Pre-Dialysis 62 BPM Temperature Pre-Dialysis 98.1 degF December 08, 2022 In-Center Hemodialysis Treatment [id number]:31:09.000Z 0781-70-01D10:30:09.000Z BP Sitting (Pre-Dialysis) 166/88 mmHg BP Sitting (Post-Dialysis) 156/81 mmHg Concurrent Access: falseAV Fistula Upper Arm (Right) Arterial BP Standing (Pre-Dialysis) 120/82 mmHg Sitti ng Heart Rate Post-Dialysis 60 BPM Sitting Heart Rate Pre-Dialysis 62 BPM Temperatu re Post-Dialysis 97.7 degF Standing Heart Rate Pre-Dialysis 52 BPM Temperature Pre-Dialysis 97.2 degF December 06, 2022 In-Center Hemodialysis Treatment [id number]:29:00.000Z 1717-99-72J11:48:08.000Z BP Sitting (Pre-Dialysis) 169/75 mmHg BP Sitting (Post-Dialysis) 188/78 mmHg Concurrent Access: falseAV Fistula Upper Arm (Right) Arterial BP Standing (Pre-Dialysis) 115/76 mmHg BP Standing (P ost-Dialysis) 158/76 mmHg Sitting Heart Rate Pre-Dialysis 52 BPM Sitting Heart Rate Post-Dialysis 63 BPM Standing Heart Rate Pre-Dialysis 55 BPM Standing Heart Rate Post-Dialysis 74 BPM Temperature Pre-Dialysis 97.7 degF Temperature Post -Dialysis 97.7 degF December 04, 2022 In-Center Hemodialysis Treatment [id number]:21:09.000Z [id number]:40:09.000Z BP Sitting (Pre-Dialysis) 186/50 mmHg BP Sitting (Post-Dialysis) 131/76 mmHg Concurrent Access: falseAV Fistula Upper Arm (Right) Arterial BP Standing (Pre-Dialysis) 155/74 mmHg BP Standing (P ost-Dialysis) 112/75 mmHg Sitting Heart Rate Pre-Dialysis 59 BPM Sitting Heart Rate Post-Dialysis 65 BPM Standing Heart Rate Pre-Dialysis 58 BPM Standing Heart Rate Post-Dialysis 73 BPM Temperature Pre-Dialysis 97.5 degF Temperature Post -Dialysis 97.6 degF December 01, 2022 In-Center Hemodialysis Treatment [id number]:25:00.000Z 8833-31-50L76:30:19.000Z BP Sitting (Pre-Dialysis) 159/66 mmHg BP Sitting (Post-Dialysis) 149/106 mmHg Concurrent Access: falseAV Fistula Upper Arm (Right) Arterial BP Standing (Pre-Dialysis) 180/70 mmHg BP Standing (P ost-Dialysis) 174/107 mmHg Sitting Heart Rate Pre-Dialysis 47 BPM Sitting Heart Rate Post-Dialysis 67 BPM Standing Heart Rate Pre-Dialysis 48 BPM Standing Heart Rate Post-Dialysis 72 BPM Temperature Pre-Dialysis 97.2 degF Temperature Post -Dialysis 96 degF November 29, 2022 In-Center Hemodialysis Treatment 6836-03-74Y45:21:00.000Z [id number]:36:53.000Z BP Sitting (Pre-Dialysis) 173/91 mmHg BP Sitting (Post-Dialysis) 135/66 mmHg Concurrent Access: falseAV Fistula Upper Arm (Right) Arterial BP Standing (Pre-Dialysis) 206/109 mmHg Sitti ng Heart Rate Post-Dialysis 68 BPM Sitting Heart Rate Pre-Dialysis 56 BPM Temperatu re Post-Dialysis 97.2 degF Standing Heart Rate Pre-Dialysis 67 BPM Temperature Pre-Dialysis 97.8 degF November 27, 2022 In-Center Hemodialysis Treatment [id number]:27:21.000Z [id number]:29:52.000Z BP Sitting (Pre-Dialysis) 172/73 mmHg BP Sitting (Post-Dialysis) 133/96 mmHg Concurrent Access: falseAV Fistula Upper Arm (Right) Arterial BP Standing (Pre-Dialysis) 166/64 mmHg BP Standing (P ost-Dialysis) 120/79 mmHg Sitting Heart Rate Pre-Dialysis 69 BPM Sitting Heart Rate Post-Dialysis 70 BPM Standing Heart Rate Pre-Dialysis 67 BPM Standing Heart Rate Post-Dialysis 63 BPM Temperature Pre-Dialysis 97.2 degF Temperature Post -Dialysis 98 degF November 24, 2022 In-Center Hemodialysis Treatment [id number]:23:00.000Z 2601-70-89K75:30:30.000Z BP Sitting (Pre-Dialysis) 108/70 mmHg BP Sitting (Post-Dialysis) 170/78 mmHg Concurrent Access: falseAV Fistula Upper Arm (Right) Arterial BP Standing (Pre-Dialysis) 164/95 mmHg Sitti ng Heart Rate Post-Dialysis 61 BPM Sitting Heart Rate Pre-Dialysis 61 BPM Temperatu re Post-Dialysis 97.8 degF Standing Heart Rate Pre-Dialysis 82 BPM Temperature Pre-Dialysis 98.6 degF November 22, 2022 In-Center Hemodialysis Treatment [id number]:22:00.000Z 8977-98-20I67:27:30.000Z BP Sitting (Pre-Dialysis) 146/66 mmHg BP Sitting (Post-Dialysis) 154/60 mmHg Concurrent Access: falseAV Fistula Upper Arm (Right) Arterial BP Standing (Pre-Dialysis) 133/76 mmHg BP Standing (P ost-Dialysis) 119/76 mmHg Sitting Heart Rate Pre-Dialysis 74 BPM Sitting Heart Rate Post-Dialysis 51 BPM Standing Heart Rate Pre-Dialysis 56 BPM Standing Heart Rate Post-Dialysis 62 BPM Temperature Pre-Dialysis 97.5 degF Temperature Post -Dialysis 97.6 degF November 20, 2022 In-Center Hemodialysis Treatment [id number]:20:00.000Z 1168-99-93T51:24:30.000Z BP Sitting (Pre-Dialysis) 111/80 mmHg BP Sitting (Post-Dialysis) 184/85 mmHg Concurrent Access: falseAV Fistula Upper Arm (Right) Arterial BP Standing (Pre-Dialysis) 122/85 mmHg Sitting Heart Rate Post-Dialysis 62 BPM Sitting Heart Rate Pre-Dialysis 60 BPM Temperatu re Post-Dialysis 98 degF Standing Heart Rate Pre-Dialysis 72 BPM Temperature Pre-Dialysis 98.2 degF November 17, 2022 In-Center Hemodialysis Treatment [id number]:25:00.000Z 5348-45-41S96:36:25.000Z BP Sitting (Pre-Dialysis) 151/65 mmHg BP Sitting (Post-Dialysis) 146/45 mmHg Concurrent Access: falseAV Fistula Upper Arm (Right) Arterial BP Standing (Pre-Dialysis) 166/66 mmHg Sitti ng Heart Rate Post-Dialysis 56 BPM Sitting Heart Rate Pre-Dialysis 62 BPM Temperatu re Post-Dialysis 97.7 degF Standing Heart Rate Pre-Dialysis 61 BPM Temperature Pre-Dialysis 97.2 degF November 15, 2022 In-Center Hemodialysis Treatment [id number]:34:00.000Z 3373-97-14N22:31:21.000Z BP Sitting (Pre-Dialysis) 176/83 mmHg BP Sitting (Post-Dialysis) 122/65 mmHg Concurrent Access: falseAV Fistula Upper Arm (Right) Arterial BP Standing (Pre-Dialysis) 158/79 mmHg Sitting Heart Rate Post-Dialysis 62 BPM Sitting Heart Rate Pre-Dialysis 53 BPM Temperatu re Post-Dialysis 98 degF Standing Heart Rate Pre-Dialysis 56 BPM Temperature Pre-Dialysis 98 degF November 13, 2022 In-Center Hemodialysis Treatment [id number]:24:00.000Z 0219-03-92O99:33:24.000Z BP Sitting (Pre-Dialysis) 152/85 mmHg BP Sitting (Post-Dialysis) 171/81 mmHg Concurrent Access: falseAV Fistula Upper Arm (Right) Arterial BP Standing (Pre-Dialysis) 135/72 mmHg Sitti ng Heart Rate Post-Dialysis 60 BPM Sitting Heart Rate Pre-Dialysis 57 BPM Temperatu re Post-Dialysis 97.2 degF Standing Heart Rate Pre-Dialysis 67 BPM Temperature Pre-Dialysis 97.9 degF November 10, 2022 In-Center Hemodialysis Treatment 1849-41-03F46:30:00.000Z 3869-68-32U58:46:07.000Z BP Sitting (Pre-Dialysis) 133/65 mmHg BP Sitting (Post-Dialysis) 159/82 mmHg Concurrent Access: falseAV Fistula Upper Arm (Right) Arterial BP Standing (Pre-Dialysis) 147/72 mmHg BP Standing (P ost-Dialysis) 153/66 mmHg Sitting Heart Rate Pre-Dialysis 57 BPM Sitting Heart Rate Post-Dialysis 61 BPM Standing Heart Rate Pre-Dialysis 66 BPM Standing Heart Rate Post-Dialysis 66 BPM Temperature Pre-Dialysis 98.1 degF Temperature Post -Dialysis 97.7 degF November 08, 2022 In-Center Hemodialysis Treatment [id number]:25:00.000Z 1503-78-82H73:07:33.000Z BP Sitting (Pre-Dialysis) 171/62 mmHg BP Sitting (Post-Dialysis) 148/53 mmHg Concurrent Access: falseAV Fistula Upper Arm (Right) Arterial BP Standing (Pre-Dialysis) 105/55 mmHg BP Standing (P ost-Dialysis) 164/82 mmHg Sitting Heart Rate Pre-Dialysis 50 BPM Sitting Heart Rate Post-Dialysis 62 BPM Standing Heart Rate Pre-Dialysis 53 BPM Standing Heart Rate Post-Dialysis 57 BPM Temperature Pre-Dialysis 97.7 degF Temperature Post -Dialysis 97.2 degF November 06, 2022 In-Center Hemodialysis Treatment [id number]:28:34.000Z 9367-00-35P71:46:35.000Z BP Sitting (Pre-Dialysis) 154/68 mmHg BP Sitting (Post-Dialysis) 130/60 mmHg Concurrent Access: falseAV Fistula Upper Arm (Right) Arterial BP Standing (Pre-Dialysis) 147/76 mmHg Sitting Heart Rate Post-Dialysis 58 BPM Sitting Heart Rate Pre-Dialysis 51 BPM Temperatu re Post-Dialysis 97 degF Standing Heart Rate Pre-Dialysis 62 BPM Temperature Pre-Dialysis 97.5 degF November 03, 2022 In-Center Hemodialysis Treatment 0321-81-56R52:20:00.000Z 6618-61-26N86:37:43.000Z BP Sitting (Pre-Dialysis) 171/87 mmHg BP Sitting (Post-Dialysis) 139/77 mmHg Concurrent Access: falseAV Fistula Upper Arm (Right) Arterial BP Standing (Pre-Dialysis) 170/92 mmHg BP Standing (P ost-Dialysis) 118/72 mmHg Sitting Heart Rate Pre-Dialysis 56 BPM Sitting Heart Rate Post-Dialysis 71 BPM Standing Heart Rate Pre-Dialysis 67 BPM Standing Heart Rate Post-Dialysis 70 BPM Temperature Pre-Dialysis 97.5 degF Temperature Post -Dialysis 97.2 degF November 01, 2022 InCenter Hemodialysis Treatment [id number]:21:43.000Z 6142-23-64I33:40:42.000Z BP Sitting (Pre-Dialysis) 145/88 mmHg BP Sitting (Post-Dialysis) 116/59 mmHg Concurrent Access: falseAV Fistula Upper Arm (Right) Arterial BP Standing (Pre-Dialysis) 161/88 mmHg BP Standing (P ost-Dialysis) 114/59 mmHg Sitting Heart Rate Pre-Dialysis 62 BPM Sitting Heart Rate Post-Dialysis 59 BPM Standing Heart Rate Pre-Dialysis 67 BPM Standing Heart Rate Post-Dialysis 72 BPM Temperature Pre-Dialysis 98.6 degF Temperature Post -Dialysis 97.2 degF October 30, 2022 InCenter Hemodialysis Treatment 8210-49-27I59:51:00.000Z [id number]:41:08.000Z BP Sitting (Pre-Dialysis) 167/81 mmHg BP Sitting (Post-Dialysis) 180/64 mmHg Concurrent Access: falseAV Fistula Upper Arm (Right) Arterial BP Standing (Pre-Dialysis) 147/101 mmHg BP Standing (P ost-Dialysis) 181/65 mmHg Sitting Heart Rate Pre-Dialysis 55 BPM Sitting Heart Rate Post-Dialysis 75 BPM Standing Heart Rate Pre-Dialysis 97 BPM Standing Heart Rate Post-Dialysis 72 BPM Temperature Pre-Dialysis 97.2 degF Temperature Post -Dialysis 97.2 degF October 27, 2022 In-Center Hemodialysis Treatment 5944-11-58R92:32:00.000Z 1191-60-24Z20:35:16.000Z BP Sitting (Pre-Dialysis) 157/87 mmHg BP Sitting (Post-Dialysis) 121/65 mmHg Concurrent Access: falseAV Fistula Upper Arm (Right) Arterial BP Standing (Pre-Dialysis) 156/71 mmHg BP Standing (P ost-Dialysis) 157/75 mmHg Sitting Heart Rate Pre-Dialysis 56 BPM Sitting Heart Rate Post-Dialysis 60 BPM Standing Heart Rate Pre-Dialysis 61 BPM Standing Heart Rate Post-Dialysis 76 BPM Temperature Pre-Dialysis 97.7 degF Temperature Post -Dialysis 97.2 degF October 25, 2022 In-Center Hemodialysis Treatment [id number]:21:16.000Z 6487-15-70V87:31:16.000Z BP Sitting (Pre-Dialysis) 167/69 mmHg BP Sitting (Post-Dialysis) 145/103 mmHg Concurrent Access: falseAV Fistula Upper Arm (Right) Arterial BP Standing (Pre-Dialysis) 161/69 mmHg BP Standing (P ost-Dialysis) 148/78 mmHg Sitting Heart Rate Pre-Dialysis 69 BPM Sitting Heart Rate Post-Dialysis 74 BPM Standing Heart Rate Pre-Dialysis 68 BPM Standing Heart Rate Post-Dialysis 84 BPM Temperature Pre-Dialysis 97.2 degF Temperature Post -Dialysis 97.2 degF October 23, 2022 In-Center Hemodialysis Treatment 0614-71-73B74:29:00.000Z 4622-77-06N28:45:35.000Z BP Sitting (Pre-Dialysis) 136/76 mmHg BP Sitting (Post-Dialysis) 138/60 mmHg Concurrent Access: falseAV Fistula Upper Arm (Right) Arterial BP Standing (Pre-Dialysis) 138/63 mmHg BP Standing (P ost-Dialysis) 144/75 mmHg Sitting Heart Rate Pre-Dialysis 50 BPM Sitting Heart Rate Post-Dialysis 60 BPM Standing Heart Rate Pre-Dialysis 51 BPM Standing Heart Rate Post-Dialysis 74 BPM Temperature Pre-Dialysis 97.2 degF Temperature Post -Dialysis 97.2 degF October 20, 2022 In-Center Hemodialysis Treatment 0298-71-07P96:27:00.000Z 2565-87-24S18:31:37.000Z BP Sitting (Pre-Dialysis) 135/70 mmHg BP Sitting (Post-Dialysis) 148/63 mmHg Concurrent Access: falseAV Fistula Upper Arm (Right) Arterial BP Standing (Pre-Dialysis) 122/75 mmHg Sitting Heart Rate Post-Dialysis 80 BPM Sitting Heart Rate Pre-Dialysis 62 BPM Standing Heart Rate Pre-Dialysis 73 BPM Temperature Pre-Dialysis 98.8 degF October 18, 2022 In-Center Hemodialysis Treatment [id number]:24:38.000Z 4055-10-42M04:34:38.000Z BP Sitting (Pre-Dialysis) 146/62 mmHg BP Sitting (Post-Dialysis) 152/49 mmHg Concurrent Access: falseAV Fistula Upper Arm (Right) Arterial BP Standing (Pre-Dialysis) 156/60 mmHg Sitting Heart Rate Post-Dialysis 67 BPM Sitting Heart Rate Pre-Dialysis 68 BPM Temperatu re Post-Dialysis 97 degF Standing Heart Rate Pre-Dialysis 69 BPM Temperature Pre-Dialysis 97.2 degF October 16, 2022 In-Center Hemodialysis Treatment [id number]:15:00.000Z 8255-01-55M19:36:16.000Z BP Sitting (Pre-Dialysis) 127/42 mmHg BP Sitting (Post-Dialysis) 128/62 mmHg Concurrent Access: falseAV Fistula Upper Arm (Right) Arterial BP Standing (Pre-Dialysis) 117/52 mmHg BP Standing (P ost-Dialysis) 158/76 mmHg Sitting Heart Rate Pre-Dialysis 54 BPM Sitting Heart Rate Post-Dialysis 58 BPM Standing Heart Rate Pre-Dialysis 60 BPM Standing Heart Rate Post-Dialysis 63 BPM Temperature Pre-Dialysis 97.2 degF Temperature Post -Dialysis 97.4 degF October 13, 2022 In-Center Hemodialysis Treatment [id number]:31:00.000Z 8032-03-40F33:29:35.000Z BP Sitting (Pre-Dialysis) 147/67 mmHg BP Sitting (Post-Dialysis) 132/58 mmHg Concurrent Access: falseAV Fistula Upper Arm (Right) Arterial BP Standing (Pre-Dialysis) 121/70 mmHg BP Standing (P ost-Dialysis) 123/69 mmHg Sitting Heart Rate Pre-Dialysis 62 BPM Sitting Heart Rate Post-Dialysis 61 BPM Standing Heart Rate Pre-Dialysis 58 BPM Standing Heart Rate Post-Dialysis 75 BPM Temperature Pre-Dialysis 97.5 degF Temperature Post -Dialysis 97.5 degF October 11, 2022 In-Center Hemodialysis Treatment [id number]:30:42.000Z 1664-55-34B63:33:42.000Z BP Sitting (Pre-Dialysis) 156/67 mmHg BP Sitting (Post-Dialysis) 120/69 mmHg Concurrent Access: falseAV Fistula Upper Arm (Right) Arterial BP Standing (Pre-Dialysis) 163/65 mmHg BP Standing (P ost-Dialysis) 125/70 mmHg Sitting Heart Rate Pre-Dialysis 67 BPM Sitting Heart Rate Post-Dialysis 69 BPM Standing Heart Rate Pre-Dialysis 70 BPM Standing Heart Rate Post-Dialysis 62 BPM Temperature Pre-Dialysis 98 degF Temperature Post -Dialysis 97.2 degF October 09, 2022 In-Center Hemodialysis Treatment [id number]:33:00.000Z 9654-94-24S46:36:43.000Z BP Sitting (Pre-Dialysis) 135/60 mmHg BP Sitting (Post-Dialysis) 143/62 mmHg Concurrent Access: falseAV Fistula Upper Arm (Right) Arterial BP Standing (Pre-Dialysis) 171/61 mmHg Sitti ng Heart Rate Post-Dialysis 72 BPM Sitting Heart Rate Pre-Dialysis 57 BPM Temperatu re Post-Dialysis 97.2 degF Standing Heart Rate Pre-Dialysis 62 BPM Temperature Pre-Dialysis 97.4 degF October 06, 2022 In-Center Hemodialysis Treatment 5525-16-32V54:40:00.000Z 7225-34-40D55:03:24.000Z BP Sitting (Pre-Dialysis) 129/52 mmHg BP Sitting (Post-Dialysis) 189/77 mmHg Concurrent Access: falseAV Fistula Upper Arm (Right) Arterial BP Standing (Pre-Dialysis) 114/65 mmHg BP Standing (P ost-Dialysis) 157/72 mmHg Sitting Heart Rate Pre-Dialysis 63 BPM Sitting Heart Rate Post-Dialysis 68 BPM Standing Heart Rate Pre-Dialysis 83 BPM Standing Heart Rate Post-Dialysis 79 BPM Temperature Pre-Dialysis 97.9 degF Temperature Post -Dialysis 98 degF October 04, 2022 In-Center Hemodialysis Treatment [id number]:33:00.000Z [id number]:54:14.000Z BP Sitting (Pre-Dialysis) 175/64 mmHg BP Sitting (Post-Dialysis) 152/64 mmHg Concurrent Access: falseAV Fistula Upper Arm (Right) Arterial BP Standing (Pre-Dialysis) 159/54 mmHg Sitti ng Heart Rate Post-Dialysis 63 BPM Sitting Heart Rate Pre-Dialysis 70 BPM Temperatu re Post-Dialysis 98.1 degF Standing Heart Rate Pre-Dialysis 69 BPM Temperature Pre-Dialysis 97.4 degF October 02, 2022 In-Center Hemodialysis Treatment 4110-64-02L48:43:07.000Z 1412-67-69R26:40:46.000Z BP Sitting (Pre-Dialysis) 141/75 mmHg BP Sitting (Post-Dialysis) 147/70 mmHg Concurrent Access: falseAV Fistula Upper Arm (Right) Arterial BP Standing (Pre-Dialysis) 139/71 mmHg Sitti ng Heart Rate Post-Dialysis 69 BPM Sitting Heart Rate Pre-Dialysis 62 BPM Temperatu re Post-Dialysis 97.2 degF Standing Heart Rate Pre-Dialysis 69 BPM Temperature Pre-Dialysis 97.2 degF September 29, 2022 In-Center Hemodialysis Treatment [id number]:39:41.000Z 1259-02-28G80:51:21.000Z BP Sitting (Pre-Dialysis) 136/54 mmHg BP Sitting (Post-Dialysis) 160/76 mmHg Concurrent Access: falseAV Fistula Upper Arm (Right) Arterial BP Standing (Pre-Dialysis) 144/48 mmHg Sitti ng Heart Rate Post-Dialysis 54 BPM Sitting Heart Rate Pre-Dialysis 67 BPM Temperatu re Post-Dialysis 97.2 degF Standing Heart Rate Pre-Dialysis 53 BPM Temperature Pre-Dialysis 98 degF September 27, 2022 In-Center Hemodialysis Treatment [id number]:40:00.000Z 5515-52-45Q36:57:34.000Z BP Sitting (Pre-Dialysis) 136/56 mmHg BP Sitting (Post-Dialysis) 160/62 mmHg Concurrent Access: falseAV Fistula Upper Arm (Right) Arterial BP Standing (Pre-Dialysis) 132/67 mmHg BP Standing (P ost-Dialysis) 142/63 mmHg Sitting Heart Rate Pre-Dialysis 68 BPM Sitting Heart Rate Post-Dialysis 53 BPM Standing Heart Rate Pre-Dialysis 66 BPM Standing Heart Rate Post-Dialysis 53 BPM Temperature Pre-Dialysis 98.1 degF Temperature Post -Dialysis 97.8 degF September 25, 2022 In-Center Hemodialysis Treatment [id number]:40:00.000Z 2298-35-91P50:50:00.000Z BP Sitting (Pre-Dialysis) 148/63 mmHg BP Sitting (Post-Dialysis) 150/72 mmHg Concurrent Access: falseAV Fistula Upper Arm (Right) Arterial BP Standing (Pre-Dialysis) 125/60 mmHg Sitti ng Heart Rate Post-Dialysis 54 BPM Sitting Heart Rate Pre-Dialysis 59 BPM Temperatu re Post-Dialysis 97.2 degF Standing Heart Rate Pre-Dialysis 58 BPM Temperature Pre-Dialysis 97.2 degF September 22, 2022 In-Center Hemodialysis Treatment 7920-14-36O13:35:00.000Z 9550-30-01M08:51:29.000Z BP Sitting (Pre-Dialysis) 140/65 mmHg BP Sitting (Post-Dialysis) 163/67 mmHg Concurrent Access: falseAV Fistula Upper Arm (Right) Arterial BP Standing (Pre-Dialysis) 134/55 mmHg BP Standing (P ost-Dialysis) 145/60 mmHg Sitting Heart Rate Pre-Dialysis 87 BPM Sitting Heart Rate Post-Dialysis 44 BPM Standing Heart Rate Pre-Dialysis 59 BPM Standing Heart Rate Post-Dialysis 62 BPM Temperature Pre-Dialysis 97.5 degF Temperature Post -Dialysis 97.2 degF September 20, 2022 In-Center Hemodialysis Treatment [id number]:34:00.000Z 9655-09-41Q42:35:00.000Z BP Sitting (Pre-Dialysis) 137/59 mmHg BP Sitting (Post-Dialysis) 171/66 mmHg Concurrent Access: falseAV Fistula Upper Arm (Right) Arterial BP Standing (Pre-Dialysis) 116/54 mmHg BP Standing (P ost-Dialysis) 124/50 mmHg Sitting Heart Rate Pre-Dialysis 52 BPM Sitting Heart Rate Post-Dialysis 57 BPM Standing Heart Rate Pre-Dialysis 53 BPM Standing Heart Rate Post-Dialysis 67 BPM Temperature Pre-Dialysis 98.1 degF Temperature Post -Dialysis 97.2 degF September 18, 2022 In-Center Hemodialysis Treatment [id number]:26:00.000Z 9601-27-71V49:52:00.000Z BP Sitting (Pre-Dialysis) 137/60 mmHg BP Sitting (Post-Dialysis) 161/70 mmHg Concurrent Access: falseAV Fistula Upper Arm (Right) Arterial BP Standing (Pre-Dialysis) 135/71 mmHg BP Standing (P ost-Dialysis) 118/64 mmHg Sitting Heart Rate Pre-Dialysis 52 BPM Sitting Heart Rate Post-Dialysis 60 BPM Standing Heart Rate Pre-Dialysis 47 BPM Standing Heart Rate Post-Dialysis 63 BPM Temperature Pre-Dialysis 97.7 degF Temperature Post -Dialysis 98 degF September 15, 2022 In-Center Hemodialysis Treatment [id number]:38:43.000Z 2335-78-77E29:55:48.000Z BP Sitting (Pre-Dialysis) 123/55 mmHg BP Sitting (Post-Dialysis) 104/51 mmHg Concurrent Access: falseAV Fistula Upper Arm (Right) Arterial BP Standing (Pre-Dialysis) 146/66 mmHg BP Standing (P ost-Dialysis) 131/55 mmHg Sitting Heart Rate Pre-Dialysis 62 BPM Sitting Heart Rate Post-Dialysis 62 BPM Standing Heart Rate Pre-Dialysis 48 BPM Standing Heart Rate Post-Dialysis 61 BPM Temperature Pre-Dialysis 97.2 degF Temperature Post -Dialysis 97.2 degF September 13, 2022 In-Center Hemodialysis Treatment 2557-52-00L87:33:00.000Z 3612-07-51C30:48:56.000Z BP Sitting (Pre-Dialysis) 151/62 mmHg BP Sitting (Post-Dialysis) 182/75 mmHg Concurrent Access: falseAV Fistula Upper Arm (Right) Arterial BP Standing (Pre-Dialysis) 132/59 mmHg BP Standing (P ost-Dialysis) 141/69 mmHg Sitting Heart Rate Pre-Dialysis 51 BPM Sitting Heart Rate Post-Dialysis 65 BPM Standing Heart Rate Pre-Dialysis 59 BPM Standing Heart Rate Post-Dialysis 69 BPM Temperature Pre-Dialysis 97.9 degF Temperature Post -Dialysis 97.2 degF September 11, 2022 In-Center Hemodialysis Treatment 7711-92-17E76:30:00.000Z 7988-22-53K75:53:33.000Z BP Sitting (Pre-Dialysis) 185/67 mmHg BP Sitting (Post-Dialysis) 171/62 mmHg Concurrent Access: falseAV Fistula Upper Arm (Right) Arterial BP Standing (Pre-Dialysis) 127/58 mmHg Sitti ng Heart Rate Post-Dialysis 48 BPM Sitting Heart Rate Pre-Dialysis 51 BPM Temperatu re Post-Dialysis 97.4 degF Standing Heart Rate Pre-Dialysis 65 BPM Temperature Pre-Dialysis 97.2 degF September 08, 2022 In-Center Hemodialysis Treatment 6611-81-46C53:31:00.000Z 7208-78-79J05:42:40.000Z BP Sitting (Pre-Dialysis) 130/64 mmHg BP Sitting (Post-Dialysis) 120/67 mmHg Concurrent Access: falseAV Fistula Upper Arm (Right) Arterial BP Standing (Pre-Dialysis) 129/61 mmHg Sitti ng Heart Rate Post-Dialysis 61 BPM Sitting Heart Rate Pre-Dialysis 68 BPM Temperatu re Post-Dialysis 97.2 degF Standing Heart Rate Pre-Dialysis 63 BPM Temperature Pre-Dialysis 97.2 degF September 06, 2022 In-Center Hemodialysis Treatment 8104-80-33R07:32:00.000Z 1146-39-19B91:49:50.000Z BP Sitting (Pre-Dialysis) 166/67 mmHg BP Sitting (Post-Dialysis) 166/68 mmHg Concurrent Access: falseAV Fistula Upper Arm (Right) Arterial BP Standing (Pre-Dialysis) 172/54 mmHg BP Standing (P ost-Dialysis) 156/90 mmHg Sitting Heart Rate Pre-Dialysis 52 BPM Sitting Heart Rate Post-Dialysis 49 BPM Standing Heart Rate Pre-Dialysis 56 BPM Standing Heart Rate Post-Dialysis 65 BPM Temperature Pre-Dialysis 97.7 degF Temperature Post -Dialysis 97.2 degF September 04, 2022 In-Center Hemodialysis Treatment 3732-60-55Y71:30:00.000Z 4834-77-77O90:49:11.000Z BP Sitting (Pre-Dialysis) 171/60 mmHg BP Sitting (Post-Dialysis) 204/69 mmHg Concurrent Access: falseAV Fistula Upper Arm (Right) Arterial BP Standing (Pre-Dialysis) 174/78 mmHg Sitti ng Heart Rate Post-Dialysis 56 BPM Sitting Heart Rate Pre-Dialysis 54 BPM Temperatu re Post-Dialysis 97.7 degF Standing Heart Rate Pre-Dialysis 61 BPM Temperature Pre-Dialysis 97.2 degF September 01, 2022 In-Center Hemodialysis Treatment 8901-36-66N68:30:00.000Z 5336-82-17I88:57:48.000Z BP Sitting (Pre-Dialysis) 186/57 mmHg BP Sitting (Post-Dialysis) 186/65 mmHg Concurrent Access: falseAV Fistula Upper Arm (Right) Arterial Sitting Heart Rate Pre-Dialysis 49 BPM Sitting H eart Rate Post-Dialysis 64 BPM Temperature Pre-Dialysis 97.2 degF Temperature Post -Dialysis 97.2 degF August 30, 2022 In-Center Hemodialysis Treatment [id number]:35:00.000Z 0747-46-21S35:49:45.000Z BP Sitting (Pre-Dialysis) 177/77 mmHg BP Sitting (Post-Dialysis) 139/63 mmHg Concurrent Access: falseAV Fistula Upper Arm (Right) Arterial BP Standing (Pre-Dialysis) 156/62 mmHg BP Standing (P ost-Dialysis) 141/69 mmHg Sitting Heart Rate Pre-Dialysis 58 BPM Sitting Heart Rate Post-Dialysis 82 BPM Standing Heart Rate Pre-Dialysis 57 BPM Standing Heart Rate Post-Dialysis 87 BPM Temperature Pre-Dialysis 97.1 degF Temperature Post -Dialysis 98 degF August 28, 2022 In-Center Hemodialysis Treatment [id number]:30:00.000Z [id number]:49:02.000Z BP Sitting (Pre-Dialysis) 171/73 mmHg BP Sitting (Post-Dialysis) 161/74 mmHg Concurrent Access: falseAV Fistula Upper Arm (Right) Arterial BP Standing (Pre-Dialysis) 170/73 mmHg BP Standing (P ost-Dialysis) 145/80 mmHg Sitting Heart Rate Pre-Dialysis 55 BPM Sitting Heart Rate Post-Dialysis 63 BPM Standing Heart Rate Pre-Dialysis 56 BPM Standing Heart Rate Post-Dialysis 76 BPM Temperature Pre-Dialysis 97.2 degF Temperature Post -Dialysis 97.2 degF August 25, 2022 In-Center Hemodialysis Treatment [id number]:32:00.000Z [id number]:51:04.000Z BP Sitting (Pre-Dialysis) 164/64 mmHg BP Sitting (Post-Dialysis) 206/89 mmHg Concurrent Access: falseAV Fistula Upper Arm (Right) Arterial BP Standing (Pre-Dialysis) 169/72 mmHg Sitti ng Heart Rate Post-Dialysis 88 BPM Sitting Heart Rate Pre-Dialysis 49 BPM Temperatu re Post-Dialysis 97.2 degF Standing Heart Rate Pre-Dialysis 55 BPM Temperature Pre-Dialysis 97.4 degF August 23, 2022 In-Center Hemodialysis Treatment [id number]:41:00.000Z [id number]:11:16.000Z BP Sitting (Pre-Dialysis) 159/62 mmHg BP Sitting (Post-Dialysis) 166/68 mmHg Concurrent Access: falseAV Fistula Upper Arm (Right) Arterial BP Standing (Pre-Dialysis) 160/60 mmHg Sitti ng Heart Rate Post-Dialysis 53 BPM Sitting Heart Rate Pre-Dialysis 57 BPM Temperatu re Post-Dialysis 97.2 degF Standing Heart Rate Pre-Dialysis 53 BPM Temperature Pre-Dialysis 98.1 degF August 21, 2022 In-Center Hemodialysis Treatment [id number]:03:00.000Z [id number]:25:08.000Z BP Sitting (Pre-Dialysis) 181/72 mmHg BP Sitting (Post-Dialysis) 158/70 mmHg Concurrent Access: falseAV Fistula Upper Arm (Right) Arterial BP Standing (Pre-Dialysis) 138/74 mmHg Sitti ng Heart Rate Post-Dialysis 48 BPM Sitting Heart Rate Pre-Dialysis 50 BPM Temperatu re Post-Dialysis 97.2 degF Standing Heart Rate Pre-Dialysis 75 BPM Temperature Pre-Dialysis 97 degF August 18, 2022 In-Center Hemodialysis Treatment [id number]:44:58.000Z [id number]:36:38.000Z BP Sitting (Pre-Dialysis) 186/59 mmHg BP Sitting (Post-Dialysis) 174/69 mmHg Concurrent Access: falseAV Fistula Upper Arm (Right) Arterial BP Standing (Pre-Dialysis) 162/85 mmHg BP Standing (P ost-Dialysis) 168/75 mmHg Sitting Heart Rate Pre-Dialysis 53 BPM Sitting Heart Rate Post-Dialysis 58 BPM Standing Heart Rate Pre-Dialysis 53 BPM Standing Heart Rate Post-Dialysis 57 BPM Temperature Pre-Dialysis 97.2 degF Temperature Post -Dialysis 98.1 degF August 16, 2022 In-Center Hemodialysis Treatment [id number]:47:04.000Z [id number]:47:04.000Z BP Sitting (Pre-Dialysis) 169/85 mmHg BP Sitting (Post-Dialysis) 206/83 mmHg Concurrent Access: falseAV Fistula Upper Arm (Right) Arterial BP Standing (Pre-Dialysis) 157/63 mmHg BP Standing (P ost-Dialysis) 199/90 mmHg Sitting Heart Rate Pre-Dialysis 62 BPM Sitting Heart Rate Post-Dialysis 52 BPM Standing Heart Rate Pre-Dialysis 54 BPM Standing Heart Rate Post-Dialysis 61 BPM Temperature Pre-Dialysis 97.2 degF Temperature Post -Dialysis 97.2 degF August 14, 2022 In-Center Hemodialysis Treatment [id number]:52:00.000Z [id number]:13:41.000Z BP Sitting (Pre-Dialysis) 173/55 mmHg BP Sitting (Post-Dialysis) 149/69 mmHg Concurrent Access: falseAV Fistula Upper Arm (Right) Arterial BP Standing (Pre-Dialysis) 169/71 mmHg BP Standing (P ost-Dialysis) 145/72 mmHg Sitting Heart Rate Pre-Dialysis 45 BPM Sitting Heart Rate Post-Dialysis 51 BPM Standing Heart Rate Pre-Dialysis 54 BPM Standing Heart Rate Post-Dialysis 68 BPM Temperature Pre-Dialysis 97.7 degF Temperature Post -Dialysis 97.2 degF August 11, 2022 In-Center Hemodialysis Treatment [id number]:45:00.000Z [id number]:03:12.000Z BP Sitting (Pre-Dialysis) 163/77 mmHg BP Sitting (Post-Dialysis) 152/58 mmHg Concurrent Access: falseAV Fistula Upper Arm (Right) Arterial BP Standing (Pre-Dialysis) 176/61 mmHg BP Standing (P ost-Dialysis) 131/61 mmHg Sitting Heart Rate Pre-Dialysis 58 BPM Sitting Heart Rate Post-Dialysis 51 BPM Standing Heart Rate Pre-Dialysis 50 BPM Standing Heart Rate Post-Dialysis 58 BPM Temperature Pre-Dialysis 97.2 degF Temperature Post -Dialysis 98.1 degF August 09, 2022 In-Center Hemodialysis Treatment [id number]:51:02.000Z [id number]:06:27.000Z BP Sitting (Pre-Dialysis) 139/67 mmHg BP Sitting (Post-Dialysis) 142/85 mmHg Concurrent Access: falseAV Fistula Upper Arm (Right) Arterial BP Standing (Pre-Dialysis) 148/62 mmHg Sitting Heart Rate Post-Dialysis 58 BPM Sitting Heart Rate Pre-Dialysis 62 BPM Temperatu re Post-Dialysis 98 degF Standing Heart Rate Pre-Dialysis 59 BPM Temperature Pre-Dialysis 97.2 degF August 07, 2022 In-Center Hemodialysis Treatment [id number]:59:00.000Z [id number]:21:40.000Z BP Sitting (Pre-Dialysis) 177/77 mmHg BP Sitting (Post-Dialysis) 183/87 mmHg Concurrent Access: falseAV Fistula Upper Arm (Right) Arterial BP Standing (Pre-Dialysis) 145/65 mmHg BP Standing (P ost-Dialysis) 149/79 mmHg Sitting Heart Rate Pre-Dialysis 56 BPM Sitting Heart Rate Post-Dialysis 55 BPM Standing Heart Rate Pre-Dialysis 47 BPM Standing Heart Rate Post-Dialysis 64 BPM Temperature Pre-Dialysis 97.4 degF Temperature Post -Dialysis 97.2 degF August 04, 2022 In-Center Hemodialysis Treatment [id number]:46:25.000Z [id number]:03:05.000Z BP Sitting (Pre-Dialysis) 182/72 mmHg BP Sitting (Post-Dialysis) 177/83 mmHg Concurrent Access: falseAV Fistula Upper Arm (Right) Arterial BP Standing (Pre-Dialysis) 175/66 mmHg BP Standing (P ost-Dialysis) 137/73 mmHg Sitting Heart Rate Pre-Dialysis 51 BPM Sitting Heart Rate Post-Dialysis 59 BPM Standing Heart Rate Pre-Dialysis 58 BPM Standing Heart Rate Post-Dialysis 55 BPM Temperature Pre-Dialysis 97.2 degF Temperature Post -Dialysis 97.5 degF August 02, 2022 In-Center Hemodialysis Treatment [id number]:10:00.000Z [id number]:27:22.000Z BP Sitting (Pre-Dialysis) 158/40 mmHg BP Sitting (Post-Dialysis) 169/55 mmHg Concurrent Access: falseAV Fistula Upper Arm (Right) Arterial BP Standing (Pre-Dialysis) 161/56 mmHg BP Standing (P ost-Dialysis) 179/74 mmHg Sitting Heart Rate Pre-Dialysis 52 BPM Sitting Heart Rate Post-Dialysis 55 BPM Standing Heart Rate Pre-Dialysis 48 BPM Standing Heart Rate Post-Dialysis 55 BPM Temperature Pre-Dialysis 97.5 degF Temperature Post -Dialysis 97.2 degF July 31, 2022 In-Center Hemodialysis Treatment [id number]:54:00.000Z [id number]:11:36.000Z BP Sitting (Pre-Dialysis) 174/89 mmHg BP Sitting (Post-Dialysis) 165/69 mmHg Concurrent Access: falseAV Fistula Upper Arm (Right) Arterial BP Standing (Pre-Dialysis) 182/63 mmHg BP Standing (P ost-Dialysis) 149/64 mmHg Sitting Heart Rate Pre-Dialysis 57 BPM Sitting Heart Rate Post-Dialysis 52 BPM Standing Heart Rate Pre-Dialysis 53 BPM Standing Heart Rate Post-Dialysis 58 BPM Temperature Pre-Dialysis 97.7 degF Temperature Post -Dialysis 97.7 degF July 28, 2022 In-Center Hemodialysis Treatment [id number]:42:00.000Z [id number]:59:16.000Z BP Sitting (Pre-Dialysis) 163/82 mmHg BP Sitting (Post-Dialysis) 172/63 mmHg Concurrent Access: falseAV Fistula Upper Arm (Right) Arterial BP Standing (Pre-Dialysis) 148/67 mmHg BP Standing (P ost-Dialysis) 171/71 mmHg Sitting Heart Rate Pre-Dialysis 53 BPM Sitting Heart Rate Post-Dialysis 51 BPM Standing Heart Rate Pre-Dialysis 56 BPM Standing Heart Rate Post-Dialysis 52 BPM Temperature Pre-Dialysis 97.7 degF Temperature Post -Dialysis 97.2 degF July 26, 2022 In-Center Hemodialysis Treatment [id number]:43:00.000Z [id number]:58:36.000Z BP Sitting (Pre-Dialysis) 186/67 mmHg BP Sitting (Post-Dialysis) 173/98 mmHg Concurrent Access: falseAV Fistula Upper Arm (Right) Arterial BP Standing (Pre-Dialysis) 172/67 mmHg BP Standing (P ost-Dialysis) 158/69 mmHg Sitting Heart Rate Pre-Dialysis 52 BPM Sitting Heart Rate Post-Dialysis 58 BPM Standing Heart Rate Pre-Dialysis 58 BPM Standing Heart Rate Post-Dialysis 70 BPM Temperature Pre-Dialysis 97.9 degF Temperature Post -Dialysis 97.2 degF July 24, 2022 In-Center Hemodialysis Treatment [id number]:45:02.000Z [id number]:58:47.000Z BP Sitting (Pre-Dialysis) 135/65 mmHg BP Sitting (Post-Dialysis) 149/63 mmHg Concurrent Access: falseAV Fistula Upper Arm (Right) Arterial BP Standing (Pre-Dialysis) 141/61 mmHg BP Standing (P ost-Dialysis) 166/75 mmHg Sitting Heart Rate Pre-Dialysis 55 BPM Sitting Heart Rate Post-Dialysis 51 BPM Standing Heart Rate Pre-Dialysis 57 BPM Standing Heart Rate Post-Dialysis 60 BPM Temperature Pre-Dialysis 97.2 degF Temperature Post -Dialysis 97.2 degF July 21, 2022 In-Center Hemodialysis Treatment [id number]:48:00.000Z [id number]:03:22.000Z BP Sitting (Pre-Dialysis) 152/55 mmHg BP Sitting (Post-Dialysis) 141/68 mmHg Concurrent Access: falseAV Fistula Upper Arm (Right) Arterial BP Standing (Pre-Dialysis) 118/68 mmHg BP Standing (P ost-Dialysis) 146/67 mmHg Sitting Heart Rate Pre-Dialysis 54 BPM Sitting Heart Rate Post-Dialysis 62 BPM Standing Heart Rate Pre-Dialysis 79 BPM Standing Heart Rate Post-Dialysis 57 BPM Temperature Pre-Dialysis 97.3 degF Temperature Post -Dialysis 97.1 degF July 19, 2022 In-Center Hemodialysis Treatment [id number]:41:00.000Z [id number]:49:49.000Z BP Sitting (Pre-Dialysis) 146/63 mmHg BP Sitting (Post-Dialysis) 179/72 mmHg Concurrent Access: falseAV Fistula Upper Arm (Right) Arterial BP Standing (Pre-Dialysis) 135/62 mmHg Sitti ng Heart Rate Post-Dialysis 58 BPM Sitting Heart Rate Pre-Dialysis 54 BPM Temperatu re Post-Dialysis 97.2 degF Standing Heart Rate Pre-Dialysis 60 BPM Temperature Pre-Dialysis 97.7 degF July 17, 2022 In-Center Hemodialysis Treatment [id number]:45:00.000Z [id number]:06:06.000Z BP Sitting (Pre-Dialysis) 175/81 mmHg BP Sitting (Post-Dialysis) 166/74 mmHg Concurrent Access: falseAV Fistula Upper Arm (Right) Arterial BP Standing (Pre-Dialysis) 178/70 mmHg BP Standing (P ost-Dialysis) 164/68 mmHg Sitting Heart Rate Pre-Dialysis 57 BPM Sitting Heart Rate Post-Dialysis 67 BPM Standing Heart Rate Pre-Dialysis 55 BPM Standing Heart Rate Post-Dialysis 57 BPM Temperature Pre-Dialysis 97.7 degF Temperature Post -Dialysis 97.2 degF July 14, 2022 In-Center Hemodialysis Treatment [id number]:47:41.000Z [id number]:09:21.000Z BP Sitting (Pre-Dialysis) 154/63 mmHg BP Sitting (Post-Dialysis) 194/69 mmHg Concurrent Access: falseAV Fistula Upper Arm (Right) Arterial BP Standing (Pre-Dialysis) 144/57 mmHg Sitti ng Heart Rate Post-Dialysis 57 BPM Sitting Heart Rate Pre-Dialysis 56 BPM Temperatu re Post-Dialysis 97.2 degF Standing Heart Rate Pre-Dialysis 58 BPM Temperature Pre-Dialysis 97.2 degF July 12, 2022 In-Center Hemodialysis Treatment [id number]:42:00.000Z [id number]:56:27.000Z BP Sitting (Pre-Dialysis) 182/76 mmHg BP Sitting (Post-Dialysis) 149/63 mmHg Concurrent Access: falseAV Fistula Upper Arm (Right) Arterial BP Standing (Pre-Dialysis) 182/76 mmHg BP Standing (P ost-Dialysis) 165/73 mmHg Sitting Heart Rate Pre-Dialysis 68 BPM Sitting Heart Rate Post-Dialysis 78 BPM Standing Heart Rate Pre-Dialysis 61 BPM Standing Heart Rate Post-Dialysis 71 BPM Temperature Pre-Dialysis 97.2 degF Temperature Post -Dialysis 97.3 degF July 10, 2022 In-Center Hemodialysis Treatment [id number]:40:00.000Z [id number]:58:03.000Z BP Sitting (Pre-Dialysis) 159/61 mmHg BP Sitting (Post-Dialysis) 135/55 mmHg Concurrent Access: falseAV Fistula Upper Arm (Right) Arterial BP Standing (Pre-Dialysis) 141/63 mmHg BP Standing (P ost-Dialysis) 153/68 mmHg Sitting Heart Rate Pre-Dialysis 53 BPM Sitting Heart Rate Post-Dialysis 71 BPM Standing Heart Rate Pre-Dialysis 66 BPM Standing Heart Rate Post-Dialysis 70 BPM Temperature Pre-Dialysis 97.5 degF Temperature Post -Dialysis 97 degF July 07, 2022 In-Center Hemodialysis Treatment [id number]:40:00.000Z [id number]:57:57.000Z BP Sitting (Pre-Dialysis) 139/51 mmHg BP Sitting (Post-Dialysis) 142/59 mmHg Concurrent Access: falseAV Fistula Upper Arm (Right) Arterial BP Standing (Pre-Dialysis) 140/61 mmHg BP Standing (P ost-Dialysis) 120/67 mmHg Sitting Heart Rate Pre-Dialysis 59 BPM Sitting Heart Rate Post-Dialysis 58 BPM Standing Heart Rate Pre-Dialysis 63 BPM Standing Heart Rate Post-Dialysis 66 BPM Temperature Pre-Dialysis 97.7 degF Temperature Post -Dialysis 97.9 degF July 05, 2022 In-Center Hemodialysis Treatment [id number]:55:00.000Z [id number]:12:07.000Z BP Sitting (Pre-Dialysis) 170/59 mmHg BP Sitting (Post-Dialysis) 156/70 mmHg Concurrent Access: falseAV Fistula Upper Arm (Right) Arterial BP Standing (Pre-Dialysis) 155/57 mmHg BP Standing (P ost-Dialysis) 127/69 mmHg Sitting Heart Rate Pre-Dialysis 55 BPM Sitting Heart Rate Post-Dialysis 59 BPM Standing Heart Rate Pre-Dialysis 56 BPM Standing Heart Rate Post-Dialysis 57 BPM Temperature Pre-Dialysis 97.7 degF Temperature Post -Dialysis 97.2 degF July 03, 2022 In-Center Hemodialysis Treatment [id number]:48:00.000Z [id number]:58:31.000Z BP Sitting (Pre-Dialysis) 171/61 mmHg BP Sitting (Post-Dialysis) 188/63 mmHg Concurrent Access: falseAV Fistula Upper Arm (Right) Arterial BP Standing (Pre-Dialysis) 153/81 mmHg BP Standing (P ost-Dialysis) 190/71 mmHg Sitting Heart Rate Pre-Dialysis 57 BPM Sitting Heart Rate Post-Dialysis 55 BPM Standing Heart Rate Pre-Dialysis 52 BPM Standing Heart Rate Post-Dialysis 59 BPM Temperature Pre-Dialysis 97.7 degF Temperature Post -Dialysis 98 degF June 30, 2022 In-Center Hemodialysis Treatment [id number]:00:00.000Z [id number]:38:29.000Z BP Sitting (Pre-Dialysis) 181/68 mmHg BP Sitting (Post-Dialysis) 210/80 mmHg Concurrent Access: falseAV Fistula Upper Arm (Right) Arterial BP Standing (Pre-Dialysis) 174/60 mmHg Sitti ng Heart Rate Post-Dialysis 59 BPM Sitting Heart Rate Pre-Dialysis 50 BPM Temperatu re Post-Dialysis 97.2 degF Standing Heart Rate Pre-Dialysis 57 BPM Temperature Pre-Dialysis 97.2 degF June 28, 2022 In-Center Hemodialysis Treatment [id number]:34:00.000Z [id number]:54:55.000Z BP Sitting (Pre-Dialysis) 152/66 mmHg BP Sitting (Post-Dialysis) 168/67 mmHg Concurrent Access: falseAV Fistula Upper Arm (Right) Arterial BP Standing (Pre-Dialysis) 146/63 mmHg BP Standing (P ost-Dialysis) 158/74 mmHg Sitting Heart Rate Pre-Dialysis 48 BPM Sitting Heart Rate Post-Dialysis 64 BPM Standing Heart Rate Pre-Dialysis 60 BPM Standing Heart Rate Post-Dialysis 58 BPM Temperature Pre-Dialysis 97.2 degF Temperature Post -Dialysis 97.2 degF June 26, 2022 In-Center Hemodialysis Treatment [id number]:43:00.000Z [id number]:01:06.000Z BP Sitting (Pre-Dialysis) 181/73 mmHg BP Sitting (Post-Dialysis) 164/80 mmHg Concurrent Access: falseAV Fistula Upper Arm (Right) Arterial BP Standing (Pre-Dialysis) 182/72 mmHg BP Standing (P ost-Dialysis) 179/80 mmHg Sitting Heart Rate Pre-Dialysis 52 BPM Sitting Heart Rate Post-Dialysis 48 BPM Standing Heart Rate Pre-Dialysis 57 BPM Standing Heart Rate Post-Dialysis 58 BPM Temperature Pre-Dialysis 97.4 degF Temperature Post -Dialysis 97.3 degF June 23, 2022 In-Center Hemodialysis Treatment [id number]:45:00.000Z [id number]:01:50.000Z BP Sitting (Pre-Dialysis) 165/77 mmHg BP Sitting (Post-Dialysis) 188/72 mmHg Concurrent Access: falseAV Fistula Upper Arm (Right) Arterial BP Standing (Pre-Dialysis) 174/67 mmHg BP Standing (P ost-Dialysis) 185/75 mmHg Sitting Heart Rate Pre-Dialysis 55 BPM Sitting Heart Rate Post-Dialysis 52 BPM Standing Heart Rate Pre-Dialysis 53 BPM Standing Heart Rate Post-Dialysis 53 BPM Temperature Pre-Dialysis 97.3 degF Temperature Post -Dialysis 97.2 degF June 21, 2022 In-Center Hemodialysis Treatment [id number]:55:01.000Z [id number]:03:21.000Z BP Sitting (Pre-Dialysis) 161/72 mmHg BP Sitting (Post-Dialysis) 177/73 mmHg Concurrent Access: falseAV Fistula Upper Arm (Right) Arterial BP Standing (Pre-Dialysis) 166/65 mmHg BP Standing (P ost-Dialysis) 167/65 mmHg Sitting Heart Rate Pre-Dialysis 58 BPM Sitting Heart Rate Post-Dialysis 63 BPM Standing Heart Rate Pre-Dialysis 55 BPM Standing Heart Rate Post-Dialysis 69 BPM Temperature Pre-Dialysis 97.2 degF Temperature Post -Dialysis 97.7 degF June 19, 2022 In-Center Hemodialysis Treatment [id number]:16:00.000Z [id number]:33:42.000Z BP Sitting (Pre-Dialysis) 132/59 mmHg BP Sitting (Post-Dialysis) 168/59 mmHg Concurrent Access: falseAV Fistula Upper Arm (Right) Arterial BP Standing (Pre-Dialysis) 136/54 mmHg BP Standing (P ost-Dialysis) 144/76 mmHg Sitting Heart Rate Pre-Dialysis 49 BPM Sitting Heart Rate Post-Dialysis 54 BPM Standing Heart Rate Pre-Dialysis 50 BPM Standing Heart Rate Post-Dialysis 69 BPM Temperature Pre-Dialysis 97.7 degF Temperature Post -Dialysis 98.1 degF DIALYSIS ORDER Dialysis Procedure Orders Type of Dialysis Procedure Order Order Date/Time Observations In-Center Hemodialysis Treatment February 16, 2025 Target Weight 48.5 kg Dialysate Flow Rate 500 mL/min Blood Flow Rate 350 mL/min Treatment Time 210 min(total) Max UF Rate 13 mL/kg/hr Base Sodium Dialysate Base Sodium 138 mE q/L dialysate_temp 36.5 C BiCarb Dialysate BiCarbonate 37 mEq/L Access Concurrent No Arterial Access AV Fistula (Upper Ar m (Right)) Venous Access AV Fistula (Upper Ar m (Right)) Arterial Needle Display NIPRO, TULIP, 16 G x 1, SHARP , TWIN Venous Needle NIPRO, TULIP, 16G x 1, SHARP , TWIN Dialyzer Nipro Elisio 15H 126 4 [email or web address] Dialysate Bath Potassium Potassium 2 mEq /L Dialysate Bath Calcium Calcium 2.5 mEq/L In-Center Hemodialysis TreatmentJun2024 Observation Value Target Weight 49 kg Dialysate Flow Rate 500 mL/min Blood Flow Rate 350 mL/min Treatment Time 210 min(total) Max UF Rate 13 mL/kg/hr Base Sodium Dialysate Base Sodium 138 mE q/L dialysate_temp 36.5 C BiCarb Dialysate BiCarbonate 37 mEq/L Access Concurrent No Arterial Access AV Fistula (Upper Ar m (Right)) Venous Access AV Fistula (Upper Ar m (Right)) Arterial Needle Display NIPRO, TULIP, 16 G x 1, SHARP , TWIN Venous Needle NIPRO, [place], 16G x 1, SHARP , TWIN Dialyzer Nipro Elisio 15H 126 4 [email or web address] Dialysate Bath Potassium Potassium 2 mEq /L Dialysate Bath Calcium Calcium 2.5 mEq/L In-Center Hemodialysis TreatmentMa2024 Observation Value Target Weight 50 kg Dialysate Flow Rate 500 mL/min Blood Flow Rate 350 mL/min Treatment Time 195 min(total) Max UF Rate 13 mL/kg/hr Base Sodium Dialysate Base Sodium 138 mE q/L dialysate_temp 36.5 C BiCarb Dialysate BiCarbonate 37 mEq/L Access Concurrent No Arterial Access AV Fistula (Upper Ar m (Right)) Venous Access AV Fistula (Upper Ar m (Right)) Arterial Needle Display NIPRO, TULIP, 16 G x 1, SHARP , TWIN Venous Needle NIPRO, TULIP, 16G x 1, SHARP , TWIN Dialyzer Nipro Elisio 15H 126 4 [email or web address] Dialysate Bath Potassium Potassium 2 mEq /L Dialysate Bath Calcium Calcium 2.5 mEq/L In-Center Hemodialysis TreatmentApril 2024 Observation Value Target Weight 50 kg Dialysate Flow Rate 500 mL/min Blood Flow Rate 350 mL/min Treatment Time 165 min(total) Max UF Rate 13 mL/kg/hr Base Sodium Dialysate Base Sodium 138 mE q/L dialysate_temp 36.5 C BiCarb Dialysate BiCarbonate 37 meq/L Access Concurrent No Arterial Access AV Fistula (Upper Ar m (Right)) Venous Access AV Fistula (Upper Ar m (Right)) Arterial Needle Display NIPRO, TULIP, 16 G x 1, SHARP , TWIN Venous Needle NIPRO, TULIP, 16G x 1, SHARP , TWIN Dialyzer Nipro Elisio 15H 126 4 [email or web address] Dialysate Bath Potassium Potassium 2 mEq /L Dialysate Bath Calcium Calcium 2.5 mEq/L Results Adequacy Description Draw Date Result/Unit Status Ref Range Result Comments stdKT/V Total 2025-03-17 19:59:20 N/A F CURRENT KRU 2025-03-17 19:59:20 F Unable to calculate: Post BUN lab result is unknown nPCR 2025-03-17 19:59:20 0.96 G/KG/D F VM (KT/V MEAN VOL) 2025-03-17 19:59:20 30.8 F Total Kt/V 2025-03-17 19:59:20 1.62 F Residual kt/v 2025-03-17 19:59:20 F Unable to calculate: Post BUN lab result is unknown eKt/V 2025-03-17 19:59:20 1.37 F VT (KT/V TX VOL) 2025-03-17 19:59:20 32.8 L F spKt/V 2025-03-17 19:59:20 1.62 F URR% 2025-03-17 19:59:20 77 % F TBW ([place]) 2025-03-17 19:59:20 26.28 Liters F BSA SEAN 2025-03-17 19:59:20 1.41 sq m F KT/V PRESCRIBED 2025-03-17 19:59:20 2.46 F stdKt/V (DIAL) 2025-03-17 19:59:20 N/A F Dialyzer PELON 2025-03-17 19:59:20 1264 Calc F TOTAL HOURS/WEEK DIALYSIS 2025-03-17 19:59:20 10 hrs F Std Renal KT/V 2025-03-17 19:59:20 N/A F WEIGHT - PRE DAY 1 2025-03-17 19:59:20 50.6 kg F WEIGHT (KG) 2025-03-17 19:59:20 48.5 kg F WEIGHT - POST DAY 1 2025-03-17 19:59:20 50.1 kg F PRESCRIBED DAYS/WEEK 2025-03-17 19:59:20 3 Day/Wk F HEIGHT IN INCHES 2025-03-17 19:59:20 59 Inches F DIALYZER FLOW-QD 2025-03-17 19:59:20 500 mL/min F BLOOD FLOW-QWB 2025-03-17 19:59:20 349 F PATIENT AGE 2025-03-17 19:59:20 79 Years F LENGTH OF DIALYSIS 2025-03-17 19:59:20 210 min F AMPUTATE FACTOR 2025-03-17 19:59:20 0 F Urea nitrogen [Mass/volume] in Serum or Plasma --post dialysis 2025-03-17 19:57:13 14 mg/dL F 9.0-23.0 Urea nitrogen [Mass/volume] in Serum or Plasma 2025-03-17 19:22:18 62 mg/dL F 9.0-23.0 Creatinine [Mass/volume] in Serum or Plasma 2025-03-03 14:33:14 6.12 mg/dL F 0.55-1.02 Creatinine [Mass/volume] in Serum or Plasma 2025-03-03 14:33:14 6.12 mg/dL F 0.55-1.02 Residual kt/v 2025-02-18 06:14:58 F BSA SEAN 2025-02-18 06:14:58 1.41 sq m F nPCR 2025-02-18 06:14:58 0.44 G/KG/D F KT/V PRESCRIBED 2025-02-18 06:14:58 2.37 F Total Kt/V 2025-02-18 06:14:58 1.48 F spKt/V 2025-02-18 06:14:58 1.48 F eKt/V 2025-02-18 06:14:58 1.25 F Std Renal KT/V 2025-02-18 06:14:58 N/A F CURRENT KRU 2025-02-18 06:14:58 F VT (KT/V TX VOL) 2025-02-18 06:14:58 31.4 L F stdKt/V (DIAL) 2025-02-18 06:14:58 N/A F stdKT/V Total 2025-02-18 06:14:58 N/A F TBW ([place]) 2025-02-18 06:14:58 25.91 Liters F VM (KT/V MEAN VOL) 2025-02-18 06:14:58 30.2 F PATIENT AGE 2025-02-18 06:14:58 79 Years F DIALYZER FLOW-QD 2025-02-18 06:14:58 500 mL/min F WEIGHT - PRE DAY 1 2025-02-18 06:14:58 51.1 kg F HEIGHT IN INCHES 2025-02-18 06:14:58 59 Inches F BLOOD FLOW-QWB 2025-02-18 06:14:58 293 F AMPUTATE FACTOR 2025-02-18 06:14:58 0 F PRESCRIBED DAYS/WEEK 2025-02-18 06:14:58 3 Day/Wk F URR% 2025-02-18 06:14:58 73 % F Dialyzer PELON 2025-02-18 06:14:58 1264 Calc F LENGTH OF DIALYSIS 2025-02-18 06:14:58 202 min F TOTAL HOURS/WEEK DIALYSIS 2025-02-18 06:14:58 3 hrs F WEIGHT - POST DAY 1 2025-02-18 06:14:58 48.6 kg F WEIGHT (KG) 2025-02-18 06:14:58 48.5 kg F Total Kt/V 2025-02-18 06:14:58 1.48 F Std Renal KT/V 2025-02-18 06:14:58 N/A F CURRENT KRU 2025-02-18 06:14:58 F eKt/V 2025-02-18 06:14:58 1.25 F PATIENT AGE 2025-02-18 06:14:58 79 Years F WEIGHT - PRE DAY 1 2025-02-18 06:14:58 51.1 kg F spKt/V 2025-02-18 06:14:58 1.48 F Residual kt/v 2025-02-18 06:14:58 F Dialyzer PELON 2025-02-18 06:14:58 1264 Calc F nPCR 2025-02-18 06:14:58 0.44 G/KG/D F TOTAL HOURS/WEEK DIALYSIS 2025-02-18 06:14:58 3 hrs F stdKt/V (DIAL) 2025-02-18 06:14:58 N/A F PRESCRIBED DAYS/WEEK 2025-02-18 06:14:58 3 Day/Wk F TBW ([place]) 2025-02-18 06:14:58 25.91 Liters F URR% 2025-02-18 06:14:58 73 % F AMPUTATE FACTOR 2025-02-18 06:14:58 0 F stdKT/V Total 2025-02-18 06:14:58 N/A F WEIGHT - POST DAY 1 2025-02-18 06:14:58 48.6 kg F HEIGHT IN INCHES 2025-02-18 06:14:58 59 Inches F DIALYZER FLOW-QD 2025-02-18 06:14:58 500 mL/min F LENGTH OF DIALYSIS 2025-02-18 06:14:58 202 min F BLOOD FLOW-QWB 2025-02-18 06:14:58 293 F VM (KT/V MEAN VOL) 2025-02-18 06:14:58 30.2 F KT/V PRESCRIBED 2025-02-18 06:14:58 2.37 F VT (KT/V TX VOL) 2025-02-18 06:14:58 31.4 L F WEIGHT (KG) 2025-02-18 06:14:58 48.5 kg F BSA SEAN 2025-02-18 06:14:58 1.41 sq m F Urea nitrogen [Mass/volume] in Serum or Plasma 2025-02-18 06:13:16 56 mg/dL F 9.0-23.0 Urea nitrogen [Mass/volume] in Serum or Plasma 2025-02-18 06:13:16 56 mg/dL F 9.0-23.0 Urea nitrogen [Mass/volume] in Serum or Plasma --post dialysis 2025-02-17 23:09:18 15 mg/dL F 9.0-23.0 Urea nitrogen [Mass/volume] in Serum or Plasma --post dialysis 2025-02-17 23:09:18 15 mg/dL F 9.0-23.0 Creatinine [Mass/volume] in Serum or Plasma 2025-02-03 23:58:24 6.89 mg/dL F 0.55-1.02 Creatinine [Mass/volume] in Serum or Plasma 2025-02-03 23:58:24 6.89 mg/dL F 0.55-1.02 Creatinine [Mass/volume] in Serum or Plasma 2025-02-03 23:58:24 6.89 mg/dL F 0.55-1.02 stdKt/V (DIAL) 2025-01-27 21:50:04 N/A F CURRENT KRU 2025-01-27 21:50:04 F BSA SEAN 2025-01-27 21:50:04 1.42 sq m F BLOOD FLOW-QWB 2025-01-27 21:50:04 349 F TBW ([place]) 2025-01-27 21:50:04 26.18 Liters F Std Renal KT/V 2025-01-27 21:50:04 N/A F WEIGHT - POST DAY 1 2025-01-27 21:50:04 49.7 kg F nPCR 2025-01-27 21:50:04 1.22 G/KG/D F WEIGHT - PRE DAY 1 2025-01-27 21:50:04 51.9 kg F PRESCRIBED DAYS/WEEK 2025-01-27 21:50:04 3 Day/Wk F VT (KT/V TX VOL) 2025-01-27 21:50:04 32.3 L F HEIGHT IN INCHES 2025-01-27 21:50:04 59 Inches F spKt/V 2025-01-27 21:50:04 1.65 F KT/V PRESCRIBED 2025-01-27 21:50:04 2.45 F stdKT/V Total 2025-01-27 21:50:04 N/A F URR% 2025-01-27 21:50:04 76 % F PATIENT AGE 2025-01-27 21:50:04 79 Years F Total Kt/V 2025-01-27 21:50:04 1.65 F DIALYZER FLOW-QD 2025-01-27 21:50:04 500 mL/min F WEIGHT (KG) 2025-01-27 21:50:04 49 kg F Dialyzer PELON 2025-01-27 21:50:04 1264 Calc F eKt/V 2025-01-27 21:50:04 1.39 F LENGTH OF DIALYSIS 2025-01-27 21:50:04 210 min F TOTAL HOURS/WEEK DIALYSIS 2025-01-27 21:50:04 10 hrs F AMPUTATE FACTOR 2025-01-27 21:50:04 0 F Residual kt/v 2025-01-27 21:50:04 F VM (KT/V MEAN VOL) 2025-01-27 21:50:04 29.8 F BLOOD FLOW-QWB 2025-01-27 21:50:04 349 F BSA SEAN 2025-01-27 21:50:04 1.42 sq m F CURRENT KRU 2025-01-27 21:50:04 F stdKt/V (DIAL) 2025-01-27 21:50:04 N/A F nPCR 2025-01-27 21:50:04 1.22 G/KG/D F Std Renal KT/V 2025-01-27 21:50:04 N/A F WEIGHT - PRE DAY 1 2025-01-27 21:50:04 51.9 kg F spKt/V 2025-01-27 21:50:04 1.65 F DIALYZER FLOW-QD 2025-01-27 21:50:04 500 mL/min F WEIGHT - POST DAY 1 2025-01-27 21:50:04 49.7 kg F TBW ([place]) 2025-01-27 21:50:04 26.18 Liters F HEIGHT IN INCHES 2025-01-27 21:50:04 59 Inches F stdKT/V Total 2025-01-27 21:50:04 N/A F PRESCRIBED DAYS/WEEK 2025-01-27 21:50:04 3 Day/Wk F Dialyzer PELON 2025-01-27 21:50:04 1264 Calc F PATIENT AGE 2025-01-27 21:50:04 79 Years F eKt/V 2025-01-27 21:50:04 1.39 F KT/V PRESCRIBED 2025-01-27 21:50:04 2.45 F VT (KT/V TX VOL) 2025-01-27 21:50:04 32.3 L F Total Kt/V 2025-01-27 21:50:04 1.65 F AMPUTATE FACTOR 2025-01-27 21:50:04 0 F VM (KT/V MEAN VOL) 2025-01-27 21:50:04 29.8 F Residual kt/v 2025-01-27 21:50:04 F URR% 2025-01-27 21:50:04 76 % F TOTAL HOURS/WEEK DIALYSIS 2025-01-27 21:50:04 10 hrs F WEIGHT (KG) 2025-01-27 21:50:04 49 kg F LENGTH OF DIALYSIS 2025-01-27 21:50:04 210 min F Urea nitrogen [Mass/volume] in Serum or Plasma 2025-01-27 21:48:13 79 mg/dL F 9.0-23.0 Urea nitrogen [Mass/volume] in Serum or Plasma 2025-01-27 21:48:13 79 mg/dL F 9.0-23.0 Urea nitrogen [Mass/volume] in Serum or Plasma --post dialysis 2025-01-27 19:47:23 19 mg/dL F 9.0-23.0 Urea nitrogen [Mass/volume] in Serum or Plasma --post dialysis 2025-01-27 19:47:23 19 mg/dL F 9.0-23.0 URR% 2025-01-22 12:55:51 F Unable to Calculate.,Recollec t - Shipping temp out of range URR% 2025-01-22 12:55:51 F Recollect - Shipping temp out of range,Unable to Calculate. URR% 2025-01-22 12:55:51 F Unable to Calculate.,Recollec t - Shipping temp out of range Urea nitrogen [Mass/volume] in Serum or Plasma --post dialysis 2025-01-22 12:55:00 F Recollect - Shipping temp out of range Urea nitrogen [Mass/volume] in Serum or Plasma --post dialysis 2025-01-22 12:55:00 F Recollect - Shipping temp out of range Urea nitrogen [Mass/volume] in Serum or Plasma --post dialysis 2025-01-22 12:55:00 F Recollect - Shipping temp out of range Urea nitrogen [Mass/volume] in Serum or Plasma 2025-01-22 12:55:00 F Recollect - Shipping temp out of range Urea nitrogen [Mass/volume] in Serum or Plasma 2025-01-22 12:55:00 F Recollect - Shipping temp out of range Urea nitrogen [Mass/volume] in Serum or Plasma 2025-01-22 12:55:00 F Recollect - Shipping temp out of range AMPUTATE FACTOR 2025-01-20 16:55:36 0 F WEIGHT (KG) 2025-01-20 16:55:36 49 kg F HEIGHT IN INCHES 2025-01-20 16:55:36 59 Inches F PATIENT AGE 2025-01-20 16:55:36 79 Years F AMPUTATE FACTOR 2025-01-20 16:55:36 0 F HEIGHT IN INCHES 2025-01-20 16:55:36 59 Inches F WEIGHT (KG) 2025-01-20 16:55:36 49 kg F PATIENT AGE 2025-01-20 16:55:36 79 Years F PATIENT AGE 2025-01-20 16:55:36 79 Years F WEIGHT (KG) 2025-01-20 16:55:36 49 kg F HEIGHT IN INCHES 2025-01-20 16:55:36 59 Inches F AMPUTATE FACTOR 2025-01-20 16:55:36 0 F PATIENT AGE 2025-01-20 16:55:36 79 Years F HEIGHT IN INCHES 2025-01-20 16:55:36 59 Inches F WEIGHT (KG) 2025-01-20 16:55:36 49 kg F AMPUTATE FACTOR 2025-01-20 16:55:36 0 F Creatinine [Mass/volume] in Serum or Plasma 2024-12-31 02:33:13 6.84 mg/dL F 0.55-1.02 Creatinine [Mass/volume] in Serum or Plasma 2024-12-31 02:33:13 6.84 mg/dL F 0.55-1.02 Creatinine [Mass/volume] in Serum or Plasma 2024-12-31 02:33:13 6.84 mg/dL F 0.55-1.02 Creatinine [Mass/volume] in Serum or Plasma 2024-12-31 02:33:13 6.84 mg/dL F 0.55-1.02 Dialyzer PELON 2024-12-17 03:21:46 1264 Calc F LENGTH OF DIALYSIS 2024-12-17 03:21:46 210 min F URR% 2024-12-17 03:21:46 76 % F DIALYZER FLOW-QD 2024-12-17 03:21:46 500 mL/min F PATIENT AGE 2024-12-17 03:21:46 79 Years F BSA SEAN 2024-12-17 03:21:46 1.42 sq m F WEIGHT - POST DAY 1 2024-12-17 03:21:46 49.4 kg F HEIGHT IN INCHES 2024-12-17 03:21:46 59 Inches F WEIGHT (KG) 2024-12-17 03:21:46 49 kg F WEIGHT - PRE DAY 1 2024-12-17 03:21:46 52.5 kg F PRESCRIBED DAYS/WEEK 2024-12-17 03:21:46 3 Day/Wk F VT (KT/V TX VOL) 2024-12-17 03:21:46 30.2 L F VM (KT/V MEAN VOL) 2024-12-17 03:21:46 29 F KT/V PRESCRIBED 2024-12-17 03:21:46 2.45 F nPCR 2024-12-17 03:21:46 1.03 G/KG/D F Total Kt/V 2024-12-17 03:21:46 1.71 F AMPUTATE FACTOR 2024-12-17 03:21:46 0 F Residual kt/v 2024-12-17 03:21:46 F Unable to calculate: Post BUN lab result is unknown TBW ([place]) 2024-12-17 03:21:46 26.11 Liters F eKt/V 2024-12-17 03:21:46 1.44 F spKt/V 2024-12-17 03:21:46 1.71 F stdKt/V (DIAL) 2024-12-17 03:21:46 N/A F Std Renal KT/V 2024-12-17 03:21:46 N/A F stdKT/V Total 2024-12-17 03:21:46 N/A F TOTAL HOURS/WEEK DIALYSIS 2024-12-17 03:21:46 10 hrs F BLOOD FLOW-QWB 2024-12-17 03:21:46 325 F CURRENT KRU 2024-12-17 03:21:46 F Unable to calculate: Post BUN lab result is unknown DIALYZER FLOW-QD 2024-12-17 03:21:46 500 mL/min F URR% 2024-12-17 03:21:46 76 % F Dialyzer PELON 2024-12-17 03:21:46 1264 Calc F LENGTH OF DIALYSIS 2024-12-17 03:21:46 210 min F PATIENT AGE 2024-12-17 03:21:46 79 Years F BSA SEAN 2024-12-17 03:21:46 1.42 sq m F WEIGHT - POST DAY 1 2024-12-17 03:21:46 49.4 kg F WEIGHT - PRE DAY 1 2024-12-17 03:21:46 52.5 kg F WEIGHT (KG) 2024-12-17 03:21:46 49 kg F PRESCRIBED DAYS/WEEK 2024-12-17 03:21:46 3 Day/Wk F HEIGHT IN INCHES 2024-12-17 03:21:46 59 Inches F VT (KT/V TX VOL) 2024-12-17 03:21:46 30.2 L F VM (KT/V MEAN VOL) 2024-12-17 03:21:46 29 F Residual kt/v 2024-12-17 03:21:46 F Unable to calculate: Post BUN lab result is unknown KT/V PRESCRIBED 2024-12-17 03:21:46 2.45 F Total Kt/V 2024-12-17 03:21:46 1.71 F nPCR 2024-12-17 03:21:46 1.03 G/KG/D F AMPUTATE FACTOR 2024-12-17 03:21:46 0 F TBW ([place]) 2024-12-17 03:21:46 26.11 Liters F spKt/V 2024-12-17 03:21:46 1.71 F eKt/V 2024-12-17 03:21:46 1.44 F Std Renal KT/V 2024-12-17 03:21:46 N/A F stdKT/V Total 2024-12-17 03:21:46 N/A F stdKt/V (DIAL) 2024-12-17 03:21:46 N/A F TOTAL HOURS/WEEK DIALYSIS 2024-12-17 03:21:46 10 hrs F BLOOD FLOW-QWB 2024-12-17 03:21:46 325 F CURRENT KRU 2024-12-17 03:21:46 F Unable to calculate: Post BUN lab result is unknown PATIENT AGE 2024-12-17 03:21:46 79 Years F WEIGHT - PRE DAY 1 2024-12-17 03:21:46 52.5 kg F stdKT/V Total 2024-12-17 03:21:46 N/A F stdKt/V (DIAL) 2024-12-17 03:21:46 N/A F CURRENT KRU 2024-12-17 03:21:46 F Unable to calculate: Post BUN lab result is unknown TBW ([place]) 2024-12-17 03:21:46 26.11 Liters F spKt/V 2024-12-17 03:21:46 1.71 F WEIGHT (KG) 2024-12-17 03:21:46 49 kg F VT (KT/V TX VOL) 2024-12-17 03:21:46 30.2 L F KT/V PRESCRIBED 2024-12-17 03:21:46 2.45 F eKt/V 2024-12-17 03:21:46 1.44 F Std Renal KT/V 2024-12-17 03:21:46 N/A F Dialyzer PELON 2024-12-17 03:21:46 1264 Calc F AMPUTATE FACTOR 2024-12-17 03:21:46 0 F LENGTH OF DIALYSIS 2024-12-17 03:21:46 210 min F WEIGHT - POST DAY 1 2024-12-17 03:21:46 49.4 kg F Residual kt/v 2024-12-17 03:21:46 F Unable to calculate: Post BUN lab result is unknown URR% 2024-12-17 03:21:46 76 % F BSA SEAN 2024-12-17 03:21:46 1.42 sq m F BLOOD FLOW-QWB 2024-12-17 03:21:46 325 F DIALYZER FLOW-QD 2024-12-17 03:21:46 500 mL/min F nPCR 2024-12-17 03:21:46 1.03 G/KG/D F TOTAL HOURS/WEEK DIALYSIS 2024-12-17 03:21:46 10 hrs F Total Kt/V 2024-12-17 03:21:46 1.71 F VM (KT/V MEAN VOL) 2024-12-17 03:21:46 29 F HEIGHT IN INCHES 2024-12-17 03:21:46 59 Inches F PRESCRIBED DAYS/WEEK 2024-12-17 03:21:46 3 Day/Wk F Urea nitrogen [Mass/volume] in Serum or Plasma --post dialysis 2024-12-17 03:20:17 15 mg/dL F 9.0-23.0 Urea nitrogen [Mass/volume] in Serum or Plasma --post dialysis 2024-12-17 03:20:17 15 mg/dL F 9.0-23.0 Urea nitrogen [Mass/volume] in Serum or Plasma --post dialysis 2024-12-17 03:20:17 15 mg/dL F 9.0-23.0 Urea nitrogen [Mass/volume] in Serum or Plasma 2024-12-17 02:29:14 62 mg/dL F 9.0-23.0 Urea nitrogen [Mass/volume] in Serum or Plasma 2024-12-17 02:29:14 62 mg/dL F 9.0-23.0 Urea nitrogen [Mass/volume] in Serum or Plasma 2024-12-17 02:29:14 62 mg/dL F 9.0-23.0 DIALYZER FLOW-QD 2024-11-26 15:56:58 500 mL/min F URR% 2024-11-26 15:56:58 70 % F Dialyzer PELON 2024-11-26 15:56:58 1264 Calc F LENGTH OF DIALYSIS 2024-11-26 15:56:58 167 min F WEIGHT - POST DAY 1 2024-11-26 15:56:58 54.3 kg F BSA SEAN 2024-11-26 15:56:58 1.43 sq m F PATIENT AGE 2024-11-26 15:56:58 79 Years F WEIGHT - PRE DAY 1 2024-11-26 15:56:58 56.9 kg F HEIGHT IN INCHES 2024-11-26 15:56:58 59 Inches F WEIGHT (KG) 2024-11-26 15:56:58 50 kg F PRESCRIBED DAYS/WEEK 2024-11-26 15:56:58 3 Day/Wk F VM (KT/V MEAN VOL) 2024-11-26 15:56:58 28.6 F VT (KT/V TX VOL) 2024-11-26 15:56:58 30.7 L F KT/V PRESCRIBED 2024-11-26 15:56:58 1.93 F Total Kt/V 2024-11-26 15:56:58 1.38 F Residual kt/v 2024-11-26 15:56:58 F nPCR 2024-11-26 15:56:58 0.46 G/KG/D F AMPUTATE FACTOR 2024-11-26 15:56:58 0 F TBW ([place]) 2024-11-26 15:56:58 27.31 Liters F spKt/V 2024-11-26 15:56:58 1.38 F stdKt/V (DIAL) 2024-11-26 15:56:58 N/A F Std Renal KT/V 2024-11-26 15:56:58 N/A F eKt/V 2024-11-26 15:56:58 1.14 F stdKT/V Total 2024-11-26 15:56:58 N/A F TOTAL HOURS/WEEK DIALYSIS 2024-11-26 15:56:58 2 hrs F BLOOD FLOW-QWB 2024-11-26 15:56:58 349 F CURRENT KRU 2024-11-26 15:56:58 F URR% 2024-11-26 15:56:58 70 % F Dialyzer PELON 2024-11-26 15:56:58 1264 Calc F DIALYZER FLOW-QD 2024-11-26 15:56:58 500 mL/min F LENGTH OF DIALYSIS 2024-11-26 15:56:58 167 min F PATIENT AGE 2024-11-26 15:56:58 79 Years F BSA SEAN 2024-11-26 15:56:58 1.43 sq m F WEIGHT - POST DAY 1 2024-11-26 15:56:58 54.3 kg F WEIGHT (KG) 2024-11-26 15:56:58 50 kg F HEIGHT IN INCHES 2024-11-26 15:56:58 59 Inches F WEIGHT - PRE DAY 1 2024-11-26 15:56:58 56.9 kg F PRESCRIBED DAYS/WEEK 2024-11-26 15:56:58 3 Day/Wk F VT (KT/V TX VOL) 2024-11-26 15:56:58 30.7 L F VM (KT/V MEAN VOL) 2024-11-26 15:56:58 28.6 F Residual kt/v 2024-11-26 15:56:58 F KT/V PRESCRIBED 2024-11-26 15:56:58 1.93 F nPCR 2024-11-26 15:56:58 0.46 G/KG/D F AMPUTATE FACTOR 2024-11-26 15:56:58 0 F Total Kt/V 2024-11-26 15:56:58 1.38 F TBW ([place]) 2024-11-26 15:56:58 27.31 Liters F spKt/V 2024-11-26 15:56:58 1.38 F eKt/V 2024-11-26 15:56:58 1.14 F stdKt/V (DIAL) 2024-11-26 15:56:58 N/A F Std Renal KT/V 2024-11-26 15:56:58 N/A F stdKT/V Total 2024-11-26 15:56:58 N/A F TOTAL HOURS/WEEK DIALYSIS 2024-11-26 15:56:58 2 hrs F BLOOD FLOW-QWB 2024-11-26 15:56:58 349 F CURRENT KRU 2024-11-26 15:56:58 F Std Renal KT/V 2024-11-26 15:56:58 N/A F stdKt/V (DIAL) 2024-11-26 15:56:58 N/A F BSA SEAN 2024-11-26 15:56:58 1.43 sq m F HEIGHT IN INCHES 2024-11-26 15:56:58 59 Inches F TOTAL HOURS/WEEK DIALYSIS 2024-11-26 15:56:58 2 hrs F Residual kt/v 2024-11-26 15:56:58 F AMPUTATE FACTOR 2024-11-26 15:56:58 0 F eKt/V 2024-11-26 15:56:58 1.14 F DIALYZER FLOW-QD 2024-11-26 15:56:58 500 mL/min F WEIGHT (KG) 2024-11-26 15:56:58 50 kg F CURRENT KRU 2024-11-26 15:56:58 F Total Kt/V 2024-11-26 15:56:58 1.38 F VM (KT/V MEAN VOL) 2024-11-26 15:56:58 28.6 F Dialyzer PELON 2024-11-26 15:56:58 1264 Calc F WEIGHT - PRE DAY 1 2024-11-26 15:56:58 56.9 kg F PATIENT AGE 2024-11-26 15:56:58 79 Years F URR% 2024-11-26 15:56:58 70 % F TBW ([place]) 2024-11-26 15:56:58 27.31 Liters F stdKT/V Total 2024-11-26 15:56:58 N/A F PRESCRIBED DAYS/WEEK 2024-11-26 15:56:58 3 Day/Wk F nPCR 2024-11-26 15:56:58 0.46 G/KG/D F KT/V PRESCRIBED 2024-11-26 15:56:58 1.93 F WEIGHT - POST DAY 1 2024-11-26 15:56:58 54.3 kg F BLOOD FLOW-QWB 2024-11-26 15:56:58 349 F spKt/V 2024-11-26 15:56:58 1.38 F LENGTH OF DIALYSIS 2024-11-26 15:56:58 167 min F VT (KT/V TX VOL) 2024-11-26 15:56:58 30.7 L F Urea nitrogen [Mass/volume] in Serum or Plasma --post dialysis 2024-11-26 15:55:15 18 mg/dL F 9.0-23.0 Urea nitrogen [Mass/volume] in Serum or Plasma --post dialysis 2024-11-26 15:55:15 18 mg/dL F 9.0-23.0 Urea nitrogen [Mass/volume] in Serum or Plasma --post dialysis 2024-11-26 15:55:15 18 mg/dL F 9.0-23.0 Urea nitrogen [Mass/volume] in Serum or Plasma 2024-11-26 15:55:15 61 mg/dL F 9.0-23.0 Creatinine [Mass/volume] in Serum or Plasma 2024-11-26 15:55:15 5.49 mg/dL F 0.5-1.1 Urea nitrogen [Mass/volume] in Serum or Plasma 2024-11-26 15:55:15 61 mg/dL F 9.0-23.0 Creatinine [Mass/volume] in Serum or Plasma 2024-11-26 15:55:15 5.49 mg/dL F 0.5-1.1 Creatinine [Mass/volume] in Serum or Plasma 2024-11-26 15:55:15 5.49 mg/dL F 0.5-1.1 Urea nitrogen [Mass/volume] in Serum or Plasma 2024-11-26 15:55:15 61 mg/dL F 9.0-23.0 URR% 2024-11-11 14:30:11 72 % F 65.0-100.0 URR% 2024-11-11 14:30:11 72 % F 65.0-100.0 URR% 2024-11-11 14:30:11 72 % F 65.0-100.0 Urea nitrogen [Mass/volume] in Serum or Plasma --post dialysis 2024-11-11 14:29:15 23 mg/dL F 9.0-23.0 Urea nitrogen [Mass/volume] in Serum or Plasma --post dialysis 2024-11-11 14:29:15 23 mg/dL F 9.0-23.0 Urea nitrogen [Mass/volume] in Serum or Plasma --post dialysis 2024-11-11 14:29:15 23 mg/dL F 9.0-23.0 AMPUTATE FACTOR 2024-11-10 20:08:48 0 F PATIENT AGE 2024-11-10 20:08:48 79 Years F HEIGHT IN INCHES 2024-11-10 20:08:48 59 Inches F WEIGHT (KG) 2024-11-10 20:08:48 50 kg F PATIENT AGE 2024-11-10 20:08:48 79 Years F HEIGHT IN INCHES 2024-11-10 20:08:48 59 Inches F WEIGHT (KG) 2024-11-10 20:08:48 50 kg F AMPUTATE FACTOR 2024-11-10 20:08:48 0 F PATIENT AGE 2024-11-10 20:08:48 79 Years F WEIGHT (KG) 2024-11-10 20:08:48 50 kg F HEIGHT IN INCHES 2024-11-10 20:08:48 59 Inches F AMPUTATE FACTOR 2024-11-10 20:08:48 0 F URR% 2024-10-09 15:04:14 72 % F DIALYZER FLOW-QD 2024-10-09 15:04:14 500 mL/min F Dialyzer PELON 2024-10-09 15:04:14 1264 Calc F LENGTH OF DIALYSIS 2024-10-09 15:04:14 152 min F BSA SEAN 2024-10-09 15:04:14 1.43 sq m F PATIENT AGE 2024-10-09 15:04:14 79 Years F WEIGHT - POST DAY 1 2024-10-09 15:04:14 50.1 kg F HEIGHT IN INCHES 2024-10-09 15:04:14 59 Inches F WEIGHT - PRE DAY 1 2024-10-09 15:04:14 52.7 kg F WEIGHT (KG) 2024-10-09 15:04:14 50 kg F PRESCRIBED DAYS/WEEK 2024-10-09 15:04:14 3 Day/Wk F VT (KT/V TX VOL) 2024-10-09 15:04:14 27.9 L F VM (KT/V MEAN VOL) 2024-10-09 15:04:14 29.6 F Residual kt/v 2024-10-09 15:04:14 F KT/V PRESCRIBED 2024-10-09 15:04:14 1.99 F nPCR 2024-10-09 15:04:14 1.37 G/KG/D F Total Kt/V 2024-10-09 15:04:14 1.52 F AMPUTATE FACTOR 2024-10-09 15:04:14 0 F eKt/V 2024-10-09 15:04:14 1.22 F spKt/V 2024-10-09 15:04:14 1.52 F TBW ([place]) 2024-10-09 15:04:14 26.28 Liters F stdKt/V (DIAL) 2024-10-09 15:04:14 N/A F stdKT/V Total 2024-10-09 15:04:14 N/A F TOTAL HOURS/WEEK DIALYSIS 2024-10-09 15:04:14 8 hrs F Std Renal KT/V 2024-10-09 15:04:14 N/A F BLOOD FLOW-QWB 2024-10-09 15:04:14 429 F CURRENT KRU 2024-10-09 15:04:14 F nPCR 2024-10-09 15:04:14 1.37 G/KG/D F CURRENT KRU 2024-10-09 15:04:14 F VT (KT/V TX VOL) 2024-10-09 15:04:14 27.9 L F BLOOD FLOW-QWB 2024-10-09 15:04:14 429 F stdKT/V Total 2024-10-09 15:04:14 N/A F TBW ([place]) 2024-10-09 15:04:14 26.28 Liters F WEIGHT - POST DAY 1 2024-10-09 15:04:14 50.1 kg F PRESCRIBED DAYS/WEEK 2024-10-09 15:04:14 3 Day/Wk F PATIENT AGE 2024-10-09 15:04:14 79 Years F WEIGHT - PRE DAY 1 2024-10-09 15:04:14 52.7 kg F VM (KT/V MEAN VOL) 2024-10-09 15:04:14 29.6 F Std Renal KT/V 2024-10-09 15:04:14 N/A F Total Kt/V 2024-10-09 15:04:14 1.52 F DIALYZER FLOW-QD 2024-10-09 15:04:14 500 mL/min F stdKt/V (DIAL) 2024-10-09 15:04:14 N/A F WEIGHT (KG) 2024-10-09 15:04:14 50 kg F eKt/V 2024-10-09 15:04:14 1.22 F URR% 2024-10-09 15:04:14 72 % F LENGTH OF DIALYSIS 2024-10-09 15:04:14 152 min F Dialyzer PELON 2024-10-09 15:04:14 1264 Calc F TOTAL HOURS/WEEK DIALYSIS 2024-10-09 15:04:14 8 hrs F BSA SEAN 2024-10-09 15:04:14 1.43 sq m F AMPUTATE FACTOR 2024-10-09 15:04:14 0 F HEIGHT IN INCHES 2024-10-09 15:04:14 59 Inches F KT/V PRESCRIBED 2024-10-09 15:04:14 1.99 F spKt/V 2024-10-09 15:04:14 1.52 F Residual kt/v 2024-10-09 15:04:14 F Urea nitrogen [Mass/volume] in Serum or Plasma 2024-10-09 15:02:13 72 mg/dL F 9.0-23.0 Urea nitrogen [Mass/volume] in Serum or Plasma 2024-10-09 15:02:13 72 mg/dL F 9.0-23.0 Urea nitrogen [Mass/volume] in Serum or Plasma --post dialysis 2024-10-09 14:46:11 20 mg/dL F 9.0-23.0 Urea nitrogen [Mass/volume] in Serum or Plasma --post dialysis 2024-10-09 14:46:11 20 mg/dL F 9.0-23.0 Creatinine [Mass/volume] in Serum or Plasma 2024-09-18 14:59:22 5.05 mg/dL F 0.5-1.1 Creatinine [Mass/volume] in Serum or Plasma 2024-09-18 14:59:22 5.05 mg/dL F 0.5-1.1 Creatinine [Mass/volume] in Serum or Plasma 2024-09-18 14:59:22 5.05 mg/dL F 0.5-1.1 BLOOD FLOW-QWB 2024-09-11 19:32:26 381 F HEIGHT IN INCHES 2024-09-11 19:32:26 59 Inches F WEIGHT (KG) 2024-09-11 19:32:26 50 kg F DIALYZER FLOW-QD 2024-09-11 19:32:26 500 mL/min F VT (KT/V TX VOL) 2024-09-11 19:32:26 24.9 L F URR% 2024-09-11 19:32:26 81 % F WEIGHT - POST DAY 1 2024-09-11 19:32:26 49.6 kg F TOTAL HOURS/WEEK DIALYSIS 2024-09-11 19:32:26 8 hrs F Total Kt/V 2024-09-11 19:32:26 1.93 F WEIGHT - PRE DAY 1 2024-09-11 19:32:26 51.5 kg F PRESCRIBED DAYS/WEEK 2024-09-11 19:32:26 3 Day/Wk F TBW ([place]) 2024-09-11 19:32:26 26.15 Liters F CURRENT KRU 2024-09-11 19:32:26 F eKt/V 2024-09-11 19:32:26 1.59 F KT/V PRESCRIBED 2024-09-11 19:32:26 2.38 F AMPUTATE FACTOR 2024-09-11 19:32:26 0 F spKt/V 2024-09-11 19:32:26 1.93 F PATIENT AGE 2024-09-11 19:32:26 79 Years F nPCR 2024-09-11 19:32:26 0.75 G/KG/D F VM (KT/V MEAN VOL) 2024-09-11 19:32:26 30.2 F stdKT/V Total 2024-09-11 19:32:26 N/A F Residual kt/v 2024-09-11 19:32:26 F LENGTH OF DIALYSIS 2024-09-11 19:32:26 182 min F Dialyzer PELON 2024-09-11 19:32:26 1264 Calc F stdKt/V (DIAL) 2024-09-11 19:32:26 N/A F Std Renal KT/V 2024-09-11 19:32:26 N/A F BSA SEAN 2024-09-11 19:32:26 1.43 sq m F Urea nitrogen [Mass/volume] in Serum or Plasma 2024-09-11 19:30:28 31 mg/dL F 9.0-23.0 Urea nitrogen [Mass/volume] in Serum or Plasma --post dialysis 2024-09-11 17:14:20 6 mg/dL F 9.0-23.0 Creatinine [Mass/volume] in Serum or Plasma 2024-08-22 17:52:20 5.1 mg/dL F 0.5-1.1 TBW ([place]) 2024-08-20 02:40:23 26.6 Liters F stdKt/V (DIAL) 2024-08-20 02:40:23 N/A F BSA SEAN 2024-08-20 02:40:23 1.43 sq m F spKt/V 2024-08-20 02:40:23 1.88 F KT/V PRESCRIBED 2024-08-20 02:40:23 2.49 F TOTAL HOURS/WEEK DIALYSIS 2024-08-20 02:40:23 3 hrs F Total Kt/V 2024-08-20 02:40:23 1.88 F stdKT/V Total 2024-08-20 02:40:23 N/A F PRESCRIBED DAYS/WEEK 2024-08-20 02:40:23 3 Day/Wk F BLOOD FLOW-QWB 2024-08-20 02:40:23 450 F AMPUTATE FACTOR 2024-08-20 02:40:23 0 F WEIGHT (KG) 2024-08-20 02:40:23 50 kg F HEIGHT IN INCHES 2024-08-20 02:40:23 59 Inches F VM (KT/V MEAN VOL) 2024-08-20 02:40:23 32 F Residual kt/v 2024-08-20 02:40:23 F WEIGHT - POST DAY 1 2024-08-20 02:40:23 51.4 kg F URR% 2024-08-20 02:40:23 81 % F eKt/V 2024-08-20 02:40:23 1.56 F VT (KT/V TX VOL) 2024-08-20 02:40:23 28.7 L F CURRENT KRU 2024-08-20 02:40:23 F Dialyzer PELON 2024-08-20 02:40:23 1264 Calc F DIALYZER FLOW-QD 2024-08-20 02:40:23 500 mL/min F Std Renal KT/V 2024-08-20 02:40:23 N/A F LENGTH OF DIALYSIS 2024-08-20 02:40:23 190 min F PATIENT AGE 2024-08-20 02:40:23 79 Years F nPCR 2024-08-20 02:40:23 0.43 G/KG/D F WEIGHT - PRE DAY 1 2024-08-20 02:40:23 54.3 kg F Urea nitrogen [Mass/volume] in Serum or Plasma 2024-08-20 02:38:19 47 mg/dL F 9.0-23.0 Urea nitrogen [Mass/volume] in Serum or Plasma --post dialysis 2024-08-20 01:13:25 9 mg/dL F 9.0-23.0 Total Kt/V 2024-06-07 21:41:55 1.53 F Std Renal KT/V 2024-06-07 21:41:55 N/A F WEIGHT - PRE DAY 1 2024-06-07 21:41:55 53.8 kg F spKt/V 2024-06-07 21:41:55 1.53 F Residual kt/v 2024-06-07 21:41:55 F nPCR 2024-06-07 21:41:55 0.69 G/KG/D F stdKt/V (DIAL) 2024-06-07 21:41:55 N/A F TBW ([place]) 2024-06-07 21:41:55 26.52 Liters F WEIGHT (KG) 2024-06-07 21:41:55 49.5 kg F AMPUTATE FACTOR 2024-06-07 21:41:55 0 F eKt/V 2024-06-07 21:41:55 1.28 F DIALYZER FLOW-QD 2024-06-07 21:41:55 500 mL/min F URR% 2024-06-07 21:41:55 75 % F PRESCRIBED DAYS/WEEK 2024-06-07 21:41:55 3 Day/Wk F WEIGHT - POST DAY 1 2024-06-07 21:41:55 51.1 kg F CURRENT KRU 2024-06-07 21:41:55 F KT/V PRESCRIBED 2024-06-07 21:41:55 2.55 F BSA SEAN 2024-06-07 21:41:55 1.43 sq m F VM (KT/V MEAN VOL) 2024-06-07 21:41:55 36.1 F stdKT/V Total 2024-06-07 21:41:55 N/A F TOTAL HOURS/WEEK DIALYSIS 2024-06-07 21:41:55 3 hrs F LENGTH OF DIALYSIS 2024-06-07 21:41:55 194 min F PATIENT AGE 2024-06-07 21:41:55 79 Years F BLOOD FLOW-QWB 2024-06-07 21:41:55 450 F HEIGHT IN INCHES 2024-06-07 21:41:55 59 Inches F VT (KT/V TX VOL) 2024-06-07 21:41:55 36.1 L F Dialyzer PELON 2024-06-07 21:41:55 1264 Calc F WEIGHT - PRE DAY 1 2024-06-07 21:41:55 53.8 kg F Total Kt/V 2024-06-07 21:41:55 1.53 F URR% 2024-06-07 21:41:55 75 % F AMPUTATE FACTOR 2024-06-07 21:41:55 0 F DIALYZER FLOW-QD 2024-06-07 21:41:55 500 mL/min F Std Renal KT/V 2024-06-07 21:41:55 N/A F WEIGHT (KG) 2024-06-07 21:41:55 49.5 kg F stdKt/V (DIAL) 2024-06-07 21:41:55 N/A F eKt/V 2024-06-07 21:41:55 1.28 F nPCR 2024-06-07 21:41:55 0.69 G/KG/D F TBW ([place]) 2024-06-07 21:41:55 26.52 Liters F spKt/V 2024-06-07 21:41:55 1.53 F Residual kt/v 2024-06-07 21:41:55 F stdKT/V Total 2024-06-07 21:41:55 N/A F PRESCRIBED DAYS/WEEK 2024-06-07 21:41:55 3 Day/Wk F VM (KT/V MEAN VOL) 2024-06-07 21:41:55 36.1 F WEIGHT - POST DAY 1 2024-06-07 21:41:55 51.1 kg F HEIGHT IN INCHES 2024-06-07 21:41:55 59 Inches F CURRENT KRU 2024-06-07 21:41:55 F BLOOD FLOW-QWB 2024-06-07 21:41:55 450 F TOTAL HOURS/WEEK DIALYSIS 2024-06-07 21:41:55 3 hrs F KT/V PRESCRIBED 2024-06-07 21:41:55 2.55 F LENGTH OF DIALYSIS 2024-06-07 21:41:55 194 min F Dialyzer PELON 2024-06-07 21:41:55 1264 Calc F BSA SEAN 2024-06-07 21:41:55 1.43 sq m F PATIENT AGE 2024-06-07 21:41:55 79 Years F VT (KT/V TX VOL) 2024-06-07 21:41:55 36.1 L F URR% 2024-06-07 21:41:55 75 % F DIALYZER FLOW-QD 2024-06-07 21:41:55 500 mL/min F Dialyzer PELON 2024-06-07 21:41:55 1264 Calc F LENGTH OF DIALYSIS 2024-06-07 21:41:55 194 min F PATIENT AGE 2024-06-07 21:41:55 79 Years F BSA SEAN 2024-06-07 21:41:55 1.43 sq m F WEIGHT - POST DAY 1 2024-06-07 21:41:55 51.1 kg F WEIGHT - PRE DAY 1 2024-06-07 21:41:55 53.8 kg F WEIGHT (KG) 2024-06-07 21:41:55 49.5 kg F VT (KT/V TX VOL) 2024-06-07 21:41:55 36.1 L F VM (KT/V MEAN VOL) 2024-06-07 21:41:55 36.1 F HEIGHT IN INCHES 2024-06-07 21:41:55 59 Inches F PRESCRIBED DAYS/WEEK 2024-06-07 21:41:55 3 Day/Wk F Residual kt/v 2024-06-07 21:41:55 F KT/V PRESCRIBED 2024-06-07 21:41:55 2.55 F Total Kt/V 2024-06-07 21:41:55 1.53 F nPCR 2024-06-07 21:41:55 0.69 G/KG/D F TBW ([place]) 2024-06-07 21:41:55 26.52 Liters F AMPUTATE FACTOR 2024-06-07 21:41:55 0 F eKt/V 2024-06-07 21:41:55 1.28 F spKt/V 2024-06-07 21:41:55 1.53 F Std Renal KT/V 2024-06-07 21:41:55 N/A F stdKT/V Total 2024-06-07 21:41:55 N/A F stdKt/V (DIAL) 2024-06-07 21:41:55 N/A F BLOOD FLOW-QWB 2024-06-07 21:41:55 450 F TOTAL HOURS/WEEK DIALYSIS 2024-06-07 21:41:55 3 hrs F CURRENT KRU 2024-06-07 21:41:55 F Urea nitrogen [Mass/volume] in Serum or Plasma --post dialysis 2024-06-07 21:40:13 27 mg/dL F 9.0-23.0 Urea nitrogen [Mass/volume] in Serum or Plasma --post dialysis 2024-06-07 21:40:13 27 mg/dL F 9.0-23.0 Urea nitrogen [Mass/volume] in Serum or Plasma --post dialysis 2024-06-07 21:40:13 27 mg/dL F 9.0-23.0 Creatinine [Mass/volume] in Serum or Plasma 2024-06-07 21:12:11 7.66 mg/dL F 0.5-1.1 Urea nitrogen [Mass/volume] in Serum or Plasma 2024-06-07 21:12:11 106 mg/dL F 9.0-23.0 Creatinine [Mass/volume] in Serum or Plasma 2024-06-07 21:12:11 7.66 mg/dL F 0.5-1.1 Urea nitrogen [Mass/volume] in Serum or Plasma 2024-06-07 21:12:11 106 mg/dL F 9.0-23.0 Creatinine [Mass/volume] in Serum or Plasma 2024-06-07 21:12:11 7.66 mg/dL F 0.5-1.1 Urea nitrogen [Mass/volume] in Serum or Plasma 2024-06-07 21:12:11 106 mg/dL F 9.0-23.0 Creatinine [Mass/volume] in Serum or Plasma 2024-06-04 03:30:28 6.57 mg/dL F 0.5-1.1 Creatinine [Mass/volume] in Serum or Plasma 2024-06-04 03:30:28 6.57 mg/dL F 0.5-1.1 Creatinine [Mass/volume] in Serum or Plasma 2024-05-06 13:06:22 6.61 mg/dL F 0.5-1.1 Creatinine [Mass/volume] in Serum or Plasma 2024-04-01 23:29:22 6.54 mg/dL F 0.5-1.1 Creatinine [Mass/volume] in Serum or Plasma 2024-04-01 23:29:22 6.54 mg/dL F 0.5-1.1 Creatinine [Mass/volume] in Serum or Plasma 2024-03-05 00:37:33 6.52 mg/dL F 0.5-1.1 Creatinine [Mass/volume] in Serum or Plasma 2024-03-05 00:37:33 6.52 mg/dL F 0.5-1.1 Creatinine [Mass/volume] in Serum or Plasma 2024-01-29 20:56:35 6.23 mg/dL F 0.5-1.1 Creatinine [Mass/volume] in Serum or Plasma 2024-01-29 20:56:35 6.23 mg/dL F 0.5-1.1 Creatinine [Mass/volume] in Serum or Plasma 2024-01-02 03:12:40 6.93 mg/dL F 0.5-1.1 Creatinine [Mass/volume] in Serum or Plasma 2024-01-02 03:12:40 6.93 mg/dL F 0.5-1.1 Creatinine [Mass/volume] in Serum or Plasma 2023-12-06 14:55:32 5.48 mg/dL F 0.5-1.1 Creatinine [Mass/volume] in Serum or Plasma 2023-12-06 14:55:32 5.48 mg/dL F 0.5-1.1 Creatinine [Mass/volume] in Serum or Plasma 2023-12-06 14:55:32 5.48 mg/dL F 0.5-1.1 Creatinine [Mass/volume] in Serum or Plasma 2023-10-30 20:36:43 6.42 mg/dL F 0.5-1.1 Creatinine [Mass/volume] in Serum or Plasma 2023-10-02 19:09:36 6.34 mg/dL F 0.5-1.1 Creatinine [Mass/volume] in Serum or Plasma 2023-10-02 19:09:36 6.34 mg/dL F 0.5-1.1 Creatinine [Mass/volume] in Serum or Plasma 2023-10-02 19:09:36 6.34 mg/dL F 0.5-1.1 Creatinine [Mass/volume] in Serum or Plasma 2023-09-05 02:32:09 6.12 mg/dL F 0.5-1.1 Creatinine [Mass/volume] in Serum or Plasma 2023-09-05 02:32:09 6.12 mg/dL F 0.5-1.1 Creatinine [Mass/volume] in Serum or Plasma 2023-09-05 02:32:09 6.12 mg/dL F 0.5-1.1 Creatinine [Mass/volume] in Serum or Plasma 2023-08-02 23:48:44 8.26 mg/dL F 0.5-1.1 Creatinine [Mass/volume] in Serum or Plasma 2023-08-02 23:48:44 8.26 mg/dL F 0.5-1.1 Creatinine [Mass/volume] in Serum or Plasma 2023-08-02 23:48:44 8.26 mg/dL F 0.5-1.1 Creatinine [Mass/volume] in Serum or Plasma 2023-07-05 22:48:17 5.69 mg/dL F 0.5-1.1 Creatinine [Mass/volume] in Serum or Plasma 2023-07-05 22:48:17 5.69 mg/dL F 0.5-1.1 Creatinine [Mass/volume] in Serum or Plasma 2023-07-05 22:48:17 5.69 mg/dL F 0.5-1.1 Creatinine [Mass/volume] in Serum or Plasma 2023-06-05 21:47:29 6.15 mg/dL F 0.5-1.1 Creatinine [Mass/volume] in Serum or Plasma 2023-06-05 21:47:29 6.15 mg/dL F 0.5-1.1 Creatinine [Mass/volume] in Serum or Plasma 2023-05-03 17:43:30 5.63 mg/dL F 0.5-1.1 Creatinine [Mass/volume] in Serum or Plasma 2023-05-03 17:43:30 5.63 mg/dL F 0.5-1.1 Creatinine [Mass/volume] in Serum or Plasma 2023-04-03 23:38:34 6.15 mg/dL F 0.5-1.1 Creatinine [Mass/volume] in Serum or Plasma 2023-04-03 23:38:34 6.15 mg/dL F 0.5-1.1 Creatinine [Mass/volume] in Serum or Plasma 2023-03-06 19:55:32 6.27 mg/dL F 0.5-1.1 Creatinine [Mass/volume] in Serum or Plasma 2023-01-30 23:47:23 6.63 mg/dL F 0.5-1.1 Creatinine [Mass/volume] in Serum or Plasma 2023-01-30 23:47:23 6.63 mg/dL F 0.5-1.1 Creatinine [Mass/volume] in Serum or Plasma 2023-01-02 23:19:18 7.13 mg/dL F 0.5-1.1 Creatinine [Mass/volume] in Serum or Plasma 2022-11-28 21:58:23 8.17 mg/dL F 0.5-1.1 Creatinine [Mass/volume] in Serum or Plasma 2022-11-28 21:58:23 8.17 mg/dL F 0.5-1.1 WEIGHT (KG) 2022-10-11 09:56:43 50.5 kg F URR% 2022-10-11 09:56:43 83 % F Total Kt/V 2022-10-11 09:56:43 1.96 F WEIGHT - POST DAY 1 2022-10-11 09:56:43 51.6 kg F spKt/V 2022-10-11 09:56:43 1.96 F VT (KT/V TX VOL) 2022-10-11 09:56:43 25.9 L F nPCR 2022-10-11 09:56:43 0.65 G/KG/D F BLOOD FLOW-QWB 2022-10-11 09:56:43 450 F LENGTH OF DIALYSIS 2022-10-11 09:56:43 181 min F DIALYZER FLOW-QD 2022-10-11 09:56:43 500 mL/min F TOTAL HOURS/WEEK DIALYSIS 2022-10-11 09:56:43 3 F VM (KT/V MEAN VOL) 2022-10-11 09:56:43 25.9 F stdKT/V Total 2022-10-11 09:56:43 N/A F Residual kt/v 2022-10-11 09:56:43 F PRESCRIBED DAYS/WEEK 2022-10-11 09:56:43 3 Day/Wk F stdKt/V (DIAL) 2022-10-11 09:56:43 N/A F WEIGHT - PRE DAY 1 2022-10-11 09:56:43 53.8 kg F HEIGHT IN INCHES 2022-10-11 09:56:43 59 Inches F Dialyzer PELON 2022-10-11 09:56:43 1218 Calc F Std Renal KT/V 2022-10-11 09:56:43 N/A F eKt/V 2022-10-11 09:56:43 1.61 F TBW ([facility]) 2022-10-11 09:56:43 26.65 Liters F PATIENT AGE 2022-10-11 09:56:43 77 Years F AMPUTATE FACTOR 2022-10-11 09:56:43 0 F KT/V PRESCRIBED 2022-10-11 09:56:43 2.34 F BLOOD FLOW-QWB 2022-10-11 09:56:43 450 F DIALYZER FLOW-QD 2022-10-11 09:56:43 500 mL/min F LENGTH OF DIALYSIS 2022-10-11 09:56:43 181 min F VT (KT/V TX VOL) 2022-10-11 09:56:43 25.9 L F WEIGHT (KG) 2022-10-11 09:56:43 50.5 kg F spKt/V 2022-10-11 09:56:43 1.96 F WEIGHT - POST DAY 1 2022-10-11 09:56:43 51.6 kg F Total Kt/V 2022-10-11 09:56:43 1.96 F TOTAL HOURS/WEEK DIALYSIS 2022-10-11 09:56:43 3 F VM (KT/V MEAN VOL) 2022-10-11 09:56:43 25.9 F nPCR 2022-10-11 09:56:43 0.65 G/KG/D F URR% 2022-10-11 09:56:43 83 % F stdKT/V Total 2022-10-11 09:56:43 N/A F WEIGHT - PRE DAY 1 2022-10-11 09:56:43 53.8 kg F TBW ([facility]) 2022-10-11 09:56:43 26.65 Liters F eKt/V 2022-10-11 09:56:43 1.61 F Std Renal KT/V 2022-10-11 09:56:43 N/A F KT/V PRESCRIBED 2022-10-11 09:56:43 2.34 F PATIENT AGE 2022-10-11 09:56:43 77 Years F HEIGHT IN INCHES 2022-10-11 09:56:43 59 Inches F stdKt/V (DIAL) 2022-10-11 09:56:43 N/A F Dialyzer PELON 2022-10-11 09:56:43 1218 Calc F PRESCRIBED DAYS/WEEK 2022-10-11 09:56:43 3 Day/Wk F Residual kt/v 2022-10-11 09:56:43 F AMPUTATE FACTOR 2022-10-11 09:56:43 0 F URR% 2022-10-11 09:56:43 83 % F DIALYZER FLOW-QD 2022-10-11 09:56:43 500 mL/min F LENGTH OF DIALYSIS 2022-10-11 09:56:43 181 min F Dialyzer PELON 2022-10-11 09:56:43 1218 Calc F PATIENT AGE 2022-10-11 09:56:43 77 Years F WEIGHT - PRE DAY 1 2022-10-11 09:56:43 53.8 kg F WEIGHT - POST DAY 1 2022-10-11 09:56:43 51.6 kg F HEIGHT IN INCHES 2022-10-11 09:56:43 59 Inches F WEIGHT (KG) 2022-10-11 09:56:43 50.5 kg F VT (KT/V TX VOL) 2022-10-11 09:56:43 25.9 L F KT/V PRESCRIBED 2022-10-11 09:56:43 2.34 F Residual kt/v 2022-10-11 09:56:43 F VM (KT/V MEAN VOL) 2022-10-11 09:56:43 25.9 F PRESCRIBED DAYS/WEEK 2022-10-11 09:56:43 3 Day/Wk F Total Kt/V 2022-10-11 09:56:43 1.96 F nPCR 2022-10-11 09:56:43 0.65 G/KG/D F TBW ([facility]) 2022-10-11 09:56:43 26.65 Liters F AMPUTATE FACTOR 2022-10-11 09:56:43 0 F spKt/V 2022-10-11 09:56:43 1.96 F eKt/V 2022-10-11 09:56:43 1.61 F stdKT/V Total 2022-10-11 09:56:43 N/A F Std Renal KT/V 2022-10-11 09:56:43 N/A F stdKt/V (DIAL) 2022-10-11 09:56:43 N/A F TOTAL HOURS/WEEK DIALYSIS 2022-10-11 09:56:43 3 F BLOOD FLOW-QWB 2022-10-11 09:56:43 450 F CURRENT [facility] 2022-10-11 09:56:43 F BSA SEAN 2022-10-11 09:56:43 1.44 sq m F CURRENT [facility] 2022-10-11 09:56:43 F BSA SEAN 2022-10-11 09:56:43 1.44 sq m F BSA SEAN 2022-10-11 09:56:43 1.44 sq m F CURRENT [facility] 2022-10-11 09:56:43 F Urea nitrogen [Mass/volume] in Serum or Plasma --post dialysis 2022-10-11 05:52:12 15 mg/dL F 9.0-23.0 Urea nitrogen [Mass/volume] in Serum or Plasma --post dialysis 2022-10-11 05:52:12 15 mg/dL F 9.0-23.0 Urea nitrogen [Mass/volume] in Serum or Plasma --post dialysis 2022-10-11 05:52:12 15 mg/dL F 9.0-23.0 Creatinine [Mass/volume] in Serum or Plasma 2022-10-11 05:32:19 7.34 mg/dL F 0.5-1.1 Urea nitrogen [Mass/volume] in Serum or Plasma 2022-10-11 05:32:19 87 mg/dL F 9.0-23.0 Creatinine [Mass/volume] in Serum or Plasma 2022-10-11 05:32:19 7.34 mg/dL F 0.5-1.1 Urea nitrogen [Mass/volume] in Serum or Plasma 2022-10-11 05:32:19 87 mg/dL F 9.0-23.0 Urea nitrogen [Mass/volume] in Serum or Plasma 2022-10-11 05:32:19 87 mg/dL F 9.0-23.0 Creatinine [Mass/volume] in Serum or Plasma 2022-10-11 05:32:19 7.34 mg/dL F 0.5-1.1 Creatinine [Mass/volume] in Serum or Plasma 2022-09-28 20:10:21 7.95 mg/dL F 0.5-1.1 Creatinine [Mass/volume] in Serum or Plasma 2022-08-31 13:53:58 6.45 mg/dL F 0.5-1.1 Creatinine [Mass/volume] in Serum or Plasma 2022-08-31 13:53:58 6.45 mg/dL F 0.5-1.1 Creatinine [Mass/volume] in Serum or Plasma 2022-07-27 16:54:48 6.5 mg/dL F 0.5-1.1 Creatinine [Mass/volume] in Serum or Plasma 2022-07-27 16:54:48 6.5 mg/dL F 0.5-1.1 Creatinine [Mass/volume] in Serum or Plasma 2022-07-27 16:54:48 6.5 mg/dL F 0.5-1.1 Creatinine [Mass/volume] in Serum or Plasma 2022-06-29 14:39:43 6.41 mg/dL F 0.5-1.1 Creatinine [Mass/volume] in Serum or Plasma 2022-06-29 14:39:43 6.41 mg/dL F 0.5-1.1 Urea nitrogen [Mass/volume] in Serum or Plasma --post dialysis DIALYZER FLOW-QD VM (KT/V MEAN VOL) Residual kt/v Std Renal KT/V URR% TBW ([facility]) WEIGHT - PRE DAY 1 Urea nitrogen [Mass/volume] in Serum or Plasma PRESCRIBED DAYS/WEEK TOTAL HOURS/WEEK DIALYSIS VT (KT/V TX VOL) stdKt/V (DIAL) eKt/V BSA SEAN spKt/V Total Kt/V LENGTH OF DIALYSIS nPCR Dialyzer PELON CURRENT KRU BLOOD FLOW-QWB WEIGHT - POST DAY 1 KT/V PRESCRIBED stdKT/V Total WEIGHT - POST DAY 1 Dialyzer PELON TBW ([facility]) WEIGHT - PRE DAY 1 BLOOD FLOW-QWB stdKT/V Total stdKt/V (DIAL) Std Renal KT/V CURRENT KRU TOTAL HOURS/WEEK DIALYSIS BSA SEAN Residual kt/v VT (KT/V TX VOL) eKt/V KT/V PRESCRIBED DIALYZER FLOW-QD Total Kt/V PRESCRIBED DAYS/WEEK nPCR VM (KT/V MEAN VOL) LENGTH OF DIALYSIS spKt/V BLOOD FLOW-QWB TOTAL HOURS/WEEK DIALYSIS Dialyzer PELON LENGTH OF DIALYSIS WEIGHT - PRE DAY 1 WEIGHT - POST DAY 1 DIALYZER FLOW-QD PRESCRIBED DAYS/WEEK BSA SEAN Std Renal KT/V stdKt/V (DIAL) KT/V PRESCRIBED VT (KT/V TX VOL) spKt/V TBW ([place]) Residual kt/v Total Kt/V CURRENT KRU stdKT/V Total VM (KT/V MEAN VOL) eKt/V nPCR DIALYZER FLOW-QD LENGTH OF DIALYSIS PRESCRIBED DAYS/WEEK BLOOD FLOW-QWB TOTAL HOURS/WEEK DIALYSIS WEIGHT - POST DAY 1 WEIGHT - PRE DAY 1 Dialyzer PELON VM (KT/V MEAN VOL) stdKt/V (DIAL) CURRENT KRU stdKT/V Total nPCR TBW ([place]) VT (KT/V TX VOL) BSA SEAN Residual kt/v Total Kt/V spKt/V KT/V PRESCRIBED Std Renal KT/V eKt/V Dialyzer PELON BLOOD FLOW-QWB WEIGHT - PRE DAY 1 LENGTH OF DIALYSIS PRESCRIBED DAYS/WEEK TOTAL HOURS/WEEK DIALYSIS DIALYZER FLOW-QD WEIGHT - POST DAY 1 TBW ([place]) Std Renal KT/V stdKt/V (DIAL) KT/V PRESCRIBED stdKT/V Total VT (KT/V TX VOL) Total Kt/V spKt/V VM (KT/V MEAN VOL) Creatinine [Mass/volume] in Serum or Plasma nPCR BSA SEAN CURRENT KRU Urea nitrogen [Mass/volume] in Serum or Plasma eKt/V Residual kt/v Urea nitrogen [Mass/volume] in Serum or Plasma Creatinine [Mass/volume] in Serum or Plasma DIALYZER FLOW-QD Dialyzer PELON LENGTH OF DIALYSIS BSA SEAN WEIGHT - PRE DAY 1 PRESCRIBED DAYS/WEEK WEIGHT - POST DAY 1 VT (KT/V TX VOL) VM (KT/V MEAN VOL) Residual kt/v KT/V PRESCRIBED nPCR Total Kt/V TBW ([place]) spKt/V stdKt/V (DIAL) eKt/V Std Renal KT/V stdKT/V Total TOTAL HOURS/WEEK DIALYSIS BLOOD FLOW-QWB CURRENT KRU Urea nitrogen [Mass/volume] in Serum or Plasma Creatinine [Mass/volume] in Serum or Plasma DIALYZER FLOW-QD Dialyzer PELON LENGTH OF DIALYSIS BSA SEAN WEIGHT - POST DAY 1 WEIGHT - PRE DAY 1 PRESCRIBED DAYS/WEEK VT (KT/V TX VOL) VM (KT/V MEAN VOL) Residual kt/v KT/V PRESCRIBED Total Kt/V TBW ([place]) nPCR spKt/V eKt/V stdKt/V (DIAL) TOTAL HOURS/WEEK DIALYSIS Std Renal KT/V stdKT/V Total BLOOD FLOW-QWB CURRENT KRU spKt/V Total Kt/V AMPUTATE FACTOR Dialyzer PELON stdKt/V (DIAL) URR% VT (KT/V TX VOL) stdKT/V Total VM (KT/V MEAN VOL) BLOOD FLOW-QWB TBW ([place]) DIALYZER FLOW-QD HEIGHT IN INCHES WEIGHT (KG) PRESCRIBED DAYS/WEEK PATIENT AGE LENGTH OF DIALYSIS nPCR eKt/V WEIGHT - POST DAY 1 Urea nitrogen [Mass/volume] in Serum or Plasma CURRENT KRU KT/V PRESCRIBED Std Renal KT/V TOTAL HOURS/WEEK DIALYSIS Residual kt/v BSA SEAN WEIGHT - PRE DAY 1 VT (KT/V TX VOL) AMPUTATE FACTOR spKt/V stdKT/V Total URR% Total Kt/V TBW ([place]) stdKt/V (DIAL) VM (KT/V MEAN VOL) Dialyzer PELON DIALYZER FLOW-QD WEIGHT - PRE DAY 1 LENGTH OF DIALYSIS BSA SEAN Urea nitrogen [Mass/volume] in Serum or Plasma eKt/V CURRENT KRU Std Renal KT/V KT/V PRESCRIBED HEIGHT IN INCHES nPCR PATIENT AGE BLOOD FLOW-QWB WEIGHT (KG) WEIGHT - POST DAY 1 Residual kt/v PRESCRIBED DAYS/WEEK TOTAL HOURS/WEEK DIALYSIS Urea nitrogen [Mass/volume] in Serum or Plasma URR% DIALYZER FLOW-QD Dialyzer PELON PATIENT AGE BSA SEAN WEIGHT - POST DAY 1 WEIGHT - PRE DAY 1 LENGTH OF DIALYSIS HEIGHT IN INCHES WEIGHT (KG) VT (KT/V TX VOL) PRESCRIBED DAYS/WEEK VM (KT/V MEAN VOL) KT/V PRESCRIBED Total Kt/V nPCR Residual kt/v TBW ([place]) AMPUTATE FACTOR spKt/V stdKt/V (DIAL) Std Renal KT/V stdKT/V Total TOTAL HOURS/WEEK DIALYSIS eKt/V BLOOD FLOW-QWB CURRENT KRU Anemia Description Draw Date Result/Unit Status Ref Range Result Comments HCT CALC HGBX3 2025-03-17 19:04:53 23.7 % F 37.0-47.0 Hemoglobin [Mass/volume] in Blood 2025-03-17 19:04:17 7.9 g/dL F 12.0-16.0 ABSOLUTE RETIC COUNT 2025-03-17 19:04:17 0.088 x 10^6 cells/uL F 0.035-0.127 Reticulocytes/100 erythrocytes in Blood by Automated count 2025-03-17 19:04:17 3.48 % F 0.7-2.5 ABSOLUTE RETIC COUNT 2025-03-10 07:29:49 F Canceled - Specimen not received 5 days past draw date Reticulocytes/100 erythrocytes in Blood by Automated count 2025-03-10 07:29:49 F Canceled - Specimen not received 5 days past draw date HCT CALC HGBX3 2025-03-05 04:59:59 Results faxed to physician. F IRON SATURATION 2025-03-04 03:16:12 29 % F 16.0-46.0 TIBC 2025-03-04 03:16:12 200 ug/dL F 250.0-425.0 IRON SATURATION 2025-03-04 03:16:12 29 % F 16.0-46.0 TIBC 2025-03-04 03:16:12 200 ug/dL F 250.0-425.0 Iron [Mass/volume] in Serum or Plasma 2025-03-04 03:06:50 57 ug/dL F 50.0-170.0 Iron binding capacity.unsaturated [Mass/volume] in Serum or Plasma 2025-03-04 03:06:50 143 ug/dL F 80.0-375.0 Iron [Mass/volume] in Serum or Plasma 2025-03-04 03:06:50 57 ug/dL F 50.0-170.0 Iron binding capacity.unsaturated [Mass/volume] in Serum or Plasma 2025-03-04 03:06:50 143 ug/dL F 80.0-375.0 HCT CALC HGBX3 2025-03-04 00:11:56 24 % F 37.0-47.0 HCT CALC HGBX3 2025-03-04 00:11:56 24 % F 37.0-47.0 Erythrocyte distribution width [Ratio] by Automated count 2025-03-04 00:11:17 15.1 % F 11.0-15.0 Erythrocytes [#/volume] in Blood by Automated count 2025-03-04 00:11:17 2.5 x 10^6 cells/uL F 3.85-5.2 Hematocrit [Volume Fraction] of Blood by Automated count 2025-03-04 00:11:17 25 % F 37.0-47.0 MCHC [Mass/volume] by Automated count 2025-03-04 00:11:17 31.9 g/dL F 29.6-35.3 MCV [Entitic volume] by Automated count 2025-03-04 00:11:17 99.8 fL F 80.0-100.0 Hemoglobin [Mass/volume] in Blood 2025-03-04 00:11:17 8 g/dL F 12.0-16.0 MCH [Entitic mass] by Automated count 2025-03-04 00:11:17 31.8 pg F 25.9-34.2 Platelets [#/volume] in Blood by Automated count 2025-03-04 00:11:17 151 x 10^3 cells/uL F 140.0-450.0 Hemoglobin [Mass/volume] in Blood 2025-03-04 00:11:17 8 g/dL F 12.0-16.0 Erythrocyte distribution width [Ratio] by Automated count 2025-03-04 00:11:17 15.1 % F 11.0-15.0 Platelets [#/volume] in Blood by Automated count 2025-03-04 00:11:17 151 x 10^3 cells/uL F 140.0-450.0 MCH [Entitic mass] by Automated count 2025-03-04 00:11:17 31.8 pg F 25.9-34.2 MCHC [Mass/volume] by Automated count 2025-03-04 00:11:17 31.9 g/dL F 29.6-35.3 Hematocrit [Volume Fraction] of Blood by Automated count 2025-03-04 00:11:17 25 % F 37.0-47.0 Erythrocytes [#/volume] in Blood by Automated count 2025-03-04 00:11:17 2.5 x 10^6 cells/uL F 3.85-5.2 MCV [Entitic volume] by Automated count 2025-03-04 00:11:17 99.8 fL F 80.0-100.0 Ferritin [Mass/volume] in Serum or Plasma 2025-03-03 16:32:18 677 ng/mL F 7.0-271.0 Ferritin [Mass/volume] in Serum or Plasma 2025-03-03 16:32:18 677 ng/mL F 7.0-271.0 HCT CALC HGBX3 2025-02-18 18:25:11 31.5 % F 37.0-47.0 HCT CALC HGBX3 2025-02-18 18:25:11 31.5 % F 37.0-47.0 Hemoglobin [Mass/volume] in Blood 2025-02-18 18:24:16 10.5 g/dL F 12.0-16.0 Hemoglobin [Mass/volume] in Blood 2025-02-18 18:24:16 10.5 g/dL F 12.0-16.0 IRON SATURATION 2025-02-04 07:33:09 15 % F 16.0-46.0 TIBC 2025-02-04 07:33:09 220 ug/dL F 250.0-425.0 IRON SATURATION 2025-02-04 07:33:09 15 % F 16.0-46.0 TIBC 2025-02-04 07:33:09 220 ug/dL F 250.0-425.0 IRON SATURATION 2025-02-04 07:33:09 15 % F 16.0-46.0 TIBC 2025-02-04 07:33:09 220 ug/dL F 250.0-425.0 Iron binding capacity.unsaturated [Mass/volume] in Serum or Plasma 2025-02-04 07:13:58 187 ug/dL F 80.0-375.0 Iron [Mass/volume] in Serum or Plasma 2025-02-04 07:13:58 33 ug/dL F 50.0-170.0 Iron [Mass/volume] in Serum or Plasma 2025-02-04 07:13:58 33 ug/dL F 50.0-170.0 Iron binding capacity.unsaturated [Mass/volume] in Serum or Plasma 2025-02-04 07:13:58 187 ug/dL F 80.0-375.0 Iron [Mass/volume] in Serum or Plasma 2025-02-04 07:13:58 33 ug/dL F 50.0-170.0 Iron binding capacity.unsaturated [Mass/volume] in Serum or Plasma 2025-02-04 07:13:58 187 ug/dL F 80.0-375.0 HCT CALC HGBX3 2025-02-04 03:02:18 33.6 % F 37.0-47.0 HCT CALC HGBX3 2025-02-04 03:02:18 33.6 % F 37.0-47.0 HCT CALC HGBX3 2025-02-04 03:02:18 33.6 % F 37.0-47.0 Erythrocytes [#/volume] in Blood by Automated count 2025-02-04 03:01:14 3.57 x 10^6 cells/uL F 3.85-5.2 MCHC [Mass/volume] by Automated count 2025-02-04 03:01:14 30.5 g/dL F 29.6-35.3 Erythrocyte distribution width [Ratio] by Automated count 2025-02-04 03:01:14 15.6 % F 11.0-15.0 MCV [Entitic volume] by Automated count 2025-02-04 03:01:14 102.2 fL F 80.0-100.0 MCH [Entitic mass] by Automated count 2025-02-04 03:01:14 31.2 pg F 25.9-34.2 Hemoglobin [Mass/volume] in Blood 2025-02-04 03:01:14 11.2 g/dL F 12.0-16.0 Platelets [#/volume] in Blood by Automated count 2025-02-04 03:01:14 115 x 10^3 cells/uL F 140.0-450.0 Hematocrit [Volume Fraction] of Blood by Automated count 2025-02-04 03:01:14 36.5 % F 37.0-47.0 Erythrocytes [#/volume] in Blood by Automated count 2025-02-04 03:01:14 3.57 x 10^6 cells/uL F 3.85-5.2 Erythrocyte distribution width [Ratio] by Automated count 2025-02-04 03:01:14 15.6 % F 11.0-15.0 Hematocrit [Volume Fraction] of Blood by Automated count 2025-02-04 03:01:14 36.5 % F 37.0-47.0 Hemoglobin [Mass/volume] in Blood 2025-02-04 03:01:14 11.2 g/dL F 12.0-16.0 MCV [Entitic volume] by Automated count 2025-02-04 03:01:14 102.2 fL F 80.0-100.0 MCH [Entitic mass] by Automated count 2025-02-04 03:01:14 31.2 pg F 25.9-34.2 MCHC [Mass/volume] by Automated count 2025-02-04 03:01:14 30.5 g/dL F 29.6-35.3 Platelets [#/volume] in Blood by Automated count 2025-02-04 03:01:14 115 x 10^3 cells/uL F 140.0-450.0 Erythrocyte distribution width [Ratio] by Automated count 2025-02-04 03:01:14 15.6 % F 11.0-15.0 Hemoglobin [Mass/volume] in Blood 2025-02-04 03:01:14 11.2 g/dL F 12.0-16.0 Platelets [#/volume] in Blood by Automated count 2025-02-04 03:01:14 115 x 10^3 cells/uL F 140.0-450.0 MCH [Entitic mass] by Automated count 2025-02-04 03:01:14 31.2 pg F 25.9-34.2 MCHC [Mass/volume] by Automated count 2025-02-04 03:01:14 30.5 g/dL F 29.6-35.3 Erythrocytes [#/volume] in Blood by Automated count 2025-02-04 03:01:14 3.57 x 10^6 cells/uL F 3.85-5.2 Hematocrit [Volume Fraction] of Blood by Automated count 2025-02-04 03:01:14 36.5 % F 37.0-47.0 MCV [Entitic volume] by Automated count 2025-02-04 03:01:14 102.2 fL F 80.0-100.0 Ferritin [Mass/volume] in Serum or Plasma 2025-02-04 02:56:24 800 ng/mL F 10.0-291.0 Ferritin [Mass/volume] in Serum or Plasma 2025-02-04 02:56:24 800 ng/mL F 10.0-291.0 Ferritin [Mass/volume] in Serum or Plasma 2025-02-04 02:56:24 800 ng/mL F 10.0-291.0 HCT CALC HGBX3 2025-01-22 12:55:51 see comments F 37.0-47.0 Unable to Calculate. HCT CALC HGBX3 2025-01-22 12:55:51 see comments F 37.0-47.0 Unable to Calculate. HCT CALC HGBX3 2025-01-22 12:55:51 see comments F 37.0-47.0 Unable to Calculate. Hemoglobin [Mass/volume] in Blood 2025-01-22 12:55:00 F Recollect - Shipping temp out of range Hemoglobin [Mass/volume] in Blood 2025-01-22 12:55:00 F Recollect - Shipping temp out of range Hemoglobin [Mass/volume] in Blood 2025-01-22 12:55:00 F Recollect - Shipping temp out of range IRON SATURATION 2025-01-04 02:19:48 12 % F 16.0-46.0 TIBC 2025-01-04 02:19:48 228 ug/dL F 250.0-425.0 IRON SATURATION 2025-01-04 02:19:48 12 % F 16.0-46.0 TIBC 2025-01-04 02:19:48 228 ug/dL F 250.0-425.0 IRON SATURATION 2025-01-04 02:19:48 12 % F 16.0-46.0 TIBC 2025-01-04 02:19:48 228 ug/dL F 250.0-425.0 Iron [Mass/volume] in Serum or Plasma 2025-01-04 02:15:11 27 ug/dL F 50.0-170.0 Iron binding capacity.unsaturated [Mass/volume] in Serum or Plasma 2025-01-04 02:15:11 201 ug/dL F 80.0-375.0 Iron [Mass/volume] in Serum or Plasma 2025-01-04 02:15:11 27 ug/dL F 50.0-170.0 Iron binding capacity.unsaturated [Mass/volume] in Serum or Plasma 2025-01-04 02:15:11 201 ug/dL F 80.0-375.0 Iron binding capacity.unsaturated [Mass/volume] in Serum or Plasma 2025-01-04 02:15:11 201 ug/dL F 80.0-375.0 Iron [Mass/volume] in Serum or Plasma 2025-01-04 02:15:11 27 ug/dL F 50.0-170.0 Ferritin [Mass/volume] in Serum or Plasma 2025-01-03 16:25:19 1088 ng/mL F 10.0-291.0 Ferritin [Mass/volume] in Serum or Plasma 2025-01-03 16:25:19 1088 ng/mL F 10.0-291.0 Ferritin [Mass/volume] in Serum or Plasma 2025-01-03 16:25:19 1088 ng/mL F 10.0-291.0 HCT CALC HGBX3 2024-12-30 23:05:54 28.5 % F 37.0-47.0 HCT CALC HGBX3 2024-12-30 23:05:54 28.5 % F 37.0-47.0 HCT CALC HGBX3 2024-12-30 23:05:54 28.5 % F 37.0-47.0 HCT CALC HGBX3 2024-12-30 23:05:54 28.5 % F 37.0-47.0 Erythrocyte distribution width [Ratio] by Automated count 2024-12-30 23:05:16 17.4 % F 11.0-15.0 Erythrocytes [#/volume] in Blood by Automated count 2024-12-30 23:05:16 3.04 x 10^6 cells/uL F 3.85-5.2 Hematocrit [Volume Fraction] of Blood by Automated count 2024-12-30 23:05:16 30.9 % F 37.0-47.0 Hemoglobin [Mass/volume] in Blood 2024-12-30 23:05:16 9.5 g/dL F 12.0-16.0 MCH [Entitic mass] by Automated count 2024-12-30 23:05:16 31.3 pg F 25.9-34.2 MCHC [Mass/volume] by Automated count 2024-12-30 23:05:16 30.9 g/dL F 29.6-35.3 MCV [Entitic volume] by Automated count 2024-12-30 23:05:16 101.5 fL F 80.0-100.0 Platelets [#/volume] in Blood by Automated count 2024-12-30 23:05:16 146 x 10^3 cells/uL F 140.0-450.0 Erythrocyte distribution width [Ratio] by Automated count 2024-12-30 23:05:16 17.4 % F 11.0-15.0 Hemoglobin [Mass/volume] in Blood 2024-12-30 23:05:16 9.5 g/dL F 12.0-16.0 Platelets [#/volume] in Blood by Automated count 2024-12-30 23:05:16 146 x 10^3 cells/uL F 140.0-450.0 MCH [Entitic mass] by Automated count 2024-12-30 23:05:16 31.3 pg F 25.9-34.2 MCHC [Mass/volume] by Automated count 2024-12-30 23:05:16 30.9 g/dL F 29.6-35.3 Erythrocytes [#/volume] in Blood by Automated count 2024-12-30 23:05:16 3.04 x 10^6 cells/uL F 3.85-5.2 Hematocrit [Volume Fraction] of Blood by Automated count 2024-12-30 23:05:16 30.9 % F 37.0-47.0 MCV [Entitic volume] by Automated count 2024-12-30 23:05:16 101.5 fL F 80.0-100.0 Erythrocyte distribution width [Ratio] by Automated count 2024-12-30 23:05:16 17.4 % F 11.0-15.0 Hemoglobin [Mass/volume] in Blood 2024-12-30 23:05:16 9.5 g/dL F 12.0-16.0 Platelets [#/volume] in Blood by Automated count 2024-12-30 23:05:16 146 x 10^3 cells/uL F 140.0-450.0 MCH [Entitic mass] by Automated count 2024-12-30 23:05:16 31.3 pg F 25.9-34.2 MCHC [Mass/volume] by Automated count 2024-12-30 23:05:16 30.9 g/dL F 29.6-35.3 Erythrocytes [#/volume] in Blood by Automated count 2024-12-30 23:05:16 3.04 x 10^6 cells/uL F 3.85-5.2 Hematocrit [Volume Fraction] of Blood by Automated count 2024-12-30 23:05:16 30.9 % F 37.0-47.0 MCV [Entitic volume] by Automated count 2024-12-30 23:05:16 101.5 fL F 80.0-100.0 Erythrocyte distribution width [Ratio] by Automated count 2024-12-30 23:05:16 17.4 % F 11.0-15.0 Erythrocytes [#/volume] in Blood by Automated count 2024-12-30 23:05:16 3.04 x 10^6 cells/uL F 3.85-5.2 Hematocrit [Volume Fraction] of Blood by Automated count 2024-12-30 23:05:16 30.9 % F 37.0-47.0 Hemoglobin [Mass/volume] in Blood 2024-12-30 23:05:16 9.5 g/dL F 12.0-16.0 MCV [Entitic volume] by Automated count 2024-12-30 23:05:16 101.5 fL F 80.0-100.0 MCH [Entitic mass] by Automated count 2024-12-30 23:05:16 31.3 pg F 25.9-34.2 Platelets [#/volume] in Blood by Automated count 2024-12-30 23:05:16 146 x 10^3 cells/uL F 140.0-450.0 MCHC [Mass/volume] by Automated count 2024-12-30 23:05:16 30.9 g/dL F 29.6-35.3 HCT CALC HGBX3 2024-12-16 13:50:11 26.1 % F 37.0-47.0 HCT CALC HGBX3 2024-12-16 13:50:11 26.1 % F 37.0-47.0 HCT CALC HGBX3 2024-12-16 13:50:11 26.1 % F 37.0-47.0 Hemoglobin [Mass/volume] in Blood 2024-12-16 13:49:16 8.7 g/dL F 12.0-16.0 Hemoglobin [Mass/volume] in Blood 2024-12-16 13:49:16 8.7 g/dL F 12.0-16.0 Hemoglobin [Mass/volume] in Blood 2024-12-16 13:49:16 8.7 g/dL F 12.0-16.0 HCT CALC HGBX3 2024-12-12 02:14:20 25.8 % F 37.0-47.0 HCT CALC HGBX3 2024-12-12 02:14:20 25.8 % F 37.0-47.0 Hemoglobin [Mass/volume] in Blood 2024-12-12 02:13:14 8.6 g/dL F 12.0-16.0 Hemoglobin [Mass/volume] in Blood 2024-12-12 02:13:14 8.6 g/dL F 12.0-16.0 ABSOLUTE RETIC COUNT 2024-12-06 17:11:16 0.067 x 10^6 cells/uL F 0.035-0.127 Reticulocytes/100 erythrocytes in Blood by Automated count 2024-12-06 17:11:16 2.49 % F 0.7-2.5 ABSOLUTE RETIC COUNT 2024-12-06 17:11:16 0.067 x 10^6 cells/uL F 0.035-0.127 Reticulocytes/100 erythrocytes in Blood by Automated count 2024-12-06 17:11:16 2.49 % F 0.7-2.5 HCT CALC HGBX3 2024-12-04 20:49:02 23.7 % F 37.0-47.0 HCT CALC HGBX3 2024-12-04 20:49:02 23.7 % F 37.0-47.0 Hemoglobin [Mass/volume] in Blood 2024-12-04 20:48:10 7.9 g/dL F 12.0-16.0 Hemoglobin [Mass/volume] in Blood 2024-12-04 20:48:10 7.9 g/dL F 12.0-16.0 Ferritin [Mass/volume] in Serum or Plasma 2024-11-26 19:48:50 763 ng/mL F 10.0-291.0 Ferritin [Mass/volume] in Serum or Plasma 2024-11-26 19:48:50 763 ng/mL F 10.0-291.0 Ferritin [Mass/volume] in Serum or Plasma 2024-11-26 19:48:50 763 ng/mL F 10.0-291.0 IRON SATURATION 2024-11-26 18:12:16 16 % F 16.0-46.0 TIBC 2024-11-26 18:12:16 205 ug/dL F 250.0-425.0 IRON SATURATION 2024-11-26 18:12:16 16 % F 16.0-46.0 TIBC 2024-11-26 18:12:16 205 ug/dL F 250.0-425.0 IRON SATURATION 2024-11-26 18:12:16 16 % F 16.0-46.0 TIBC 2024-11-26 18:12:16 205 ug/dL F 250.0-425.0 Iron [Mass/volume] in Serum or Plasma 2024-11-26 18:09:30 33 ug/dL F 50.0-170.0 Iron binding capacity.unsaturated [Mass/volume] in Serum or Plasma 2024-11-26 18:09:30 172 ug/dL F 80.0-375.0 Iron [Mass/volume] in Serum or Plasma 2024-11-26 18:09:30 33 ug/dL F 50.0-170.0 Iron binding capacity.unsaturated [Mass/volume] in Serum or Plasma 2024-11-26 18:09:30 172 ug/dL F 80.0-375.0 Iron [Mass/volume] in Serum or Plasma 2024-11-26 18:09:30 33 ug/dL F 50.0-170.0 Iron binding capacity.unsaturated [Mass/volume] in Serum or Plasma 2024-11-26 18:09:30 172 ug/dL F 80.0-375.0 HCT CALC HGBX3 2024-11-26 17:05:42 28.2 % F 37.0-47.0 HCT CALC HGBX3 2024-11-26 17:05:42 28.2 % F 37.0-47.0 HCT CALC HGBX3 2024-11-26 17:05:42 28.2 % F 37.0-47.0 Erythrocyte distribution width [Ratio] by Automated count 2024-11-26 17:05:09 17.5 % F 11.0-15.0 Hemoglobin [Mass/volume] in Blood 2024-11-26 17:05:09 9.4 g/dL F 12.0-16.0 Erythrocytes [#/volume] in Blood by Automated count 2024-11-26 17:05:09 3.15 x 10^6 cells/uL F 3.85-5.2 MCV [Entitic volume] by Automated count 2024-11-26 17:05:09 99.3 fL F 80.0-100.0 Hematocrit [Volume Fraction] of Blood by Automated count 2024-11-26 17:05:09 31.2 % F 37.0-47.0 MCH [Entitic mass] by Automated count 2024-11-26 17:05:09 29.9 pg F 25.9-34.2 MCHC [Mass/volume] by Automated count 2024-11-26 17:05:09 30.2 g/dL F 29.6-35.3 Platelets [#/volume] in Blood by Automated count 2024-11-26 17:05:09 116 x 10^3 cells/uL F 140.0-450.0 Reticulocytes/100 erythrocytes in Blood by Automated count 2024-11-26 17:05:09 5.03 % F 0.7-2.5 Erythrocyte distribution width [Ratio] by Automated count 2024-11-26 17:05:09 17.5 % F 11.0-15.0 Erythrocytes [#/volume] in Blood by Automated count 2024-11-26 17:05:09 3.15 x 10^6 cells/uL F 3.85-5.2 Hematocrit [Volume Fraction] of Blood by Automated count 2024-11-26 17:05:09 31.2 % F 37.0-47.0 MCV [Entitic volume] by Automated count 2024-11-26 17:05:09 99.3 fL F 80.0-100.0 MCH [Entitic mass] by Automated count 2024-11-26 17:05:09 29.9 pg F 25.9-34.2 Hemoglobin [Mass/volume] in Blood 2024-11-26 17:05:09 9.4 g/dL F 12.0-16.0 MCHC [Mass/volume] by Automated count 2024-11-26 17:05:09 30.2 g/dL F 29.6-35.3 Platelets [#/volume] in Blood by Automated count 2024-11-26 17:05:09 116 x 10^3 cells/uL F 140.0-450.0 Reticulocytes/100 erythrocytes in Blood by Automated count 2024-11-26 17:05:09 5.03 % F 0.7-2.5 Reticulocytes/100 erythrocytes in Blood by Automated count 2024-11-26 17:05:09 5.03 % F 0.7-2.5 Erythrocyte distribution width [Ratio] by Automated count 2024-11-26 17:05:09 17.5 % F 11.0-15.0 Hemoglobin [Mass/volume] in Blood 2024-11-26 17:05:09 9.4 g/dL F 12.0-16.0 Platelets [#/volume] in Blood by Automated count 2024-11-26 17:05:09 116 x 10^3 cells/uL F 140.0-450.0 MCH [Entitic mass] by Automated count 2024-11-26 17:05:09 29.9 pg F 25.9-34.2 MCHC [Mass/volume] by Automated count 2024-11-26 17:05:09 30.2 g/dL F 29.6-35.3 Erythrocytes [#/volume] in Blood by Automated count 2024-11-26 17:05:09 3.15 x 10^6 cells/uL F 3.85-5.2 Hematocrit [Volume Fraction] of Blood by Automated count 2024-11-26 17:05:09 31.2 % F 37.0-47.0 MCV [Entitic volume] by Automated count 2024-11-26 17:05:09 99.3 fL F 80.0-100.0 IRON SATURATION 2024-11-11 20:41:38 14 % F 16.0-46.0 TIBC 2024-11-11 20:41:38 201 ug/dL F 250.0-425.0 IRON SATURATION 2024-11-11 20:41:38 14 % F 16.0-46.0 TIBC 2024-11-11 20:41:38 201 ug/dL F 250.0-425.0 IRON SATURATION 2024-11-11 20:41:38 14 % F 16.0-46.0 TIBC 2024-11-11 20:41:38 201 ug/dL F 250.0-425.0 Iron [Mass/volume] in Serum or Plasma 2024-11-11 20:31:54 29 ug/dL F 50.0-170.0 Iron binding capacity.unsaturated [Mass/volume] in Serum or Plasma 2024-11-11 20:31:54 172 ug/dL F 80.0-375.0 Iron [Mass/volume] in Serum or Plasma 2024-11-11 20:31:54 29 ug/dL F 50.0-170.0 Iron binding capacity.unsaturated [Mass/volume] in Serum or Plasma 2024-11-11 20:31:54 172 ug/dL F 80.0-375.0 Iron [Mass/volume] in Serum or Plasma 2024-11-11 20:31:54 29 ug/dL F 50.0-170.0 Iron binding capacity.unsaturated [Mass/volume] in Serum or Plasma 2024-11-11 20:31:54 172 ug/dL F 80.0-375.0 HCT CALC HGBX3 2024-11-11 16:51:22 25.8 % F 37.0-47.0 HCT CALC HGBX3 2024-11-11 16:51:22 25.8 % F 37.0-47.0 HCT CALC HGBX3 2024-11-11 16:51:22 25.8 % F 37.0-47.0 Hemoglobin [Mass/volume] in Blood 2024-11-11 16:50:18 8.6 g/dL F 12.0-16.0 Erythrocytes [#/volume] in Blood by Automated count 2024-11-11 16:50:18 3.08 x 10^6 cells/uL F 3.85-5.2 Hematocrit [Volume Fraction] of Blood by Automated count 2024-11-11 16:50:18 29.6 % F 37.0-47.0 Erythrocytes [#/volume] in Blood by Automated count 2024-11-11 16:50:18 3.08 x 10^6 cells/uL F 3.85-5.2 Hematocrit [Volume Fraction] of Blood by Automated count 2024-11-11 16:50:18 29.6 % F 37.0-47.0 Hemoglobin [Mass/volume] in Blood 2024-11-11 16:50:18 8.6 g/dL F 12.0-16.0 Erythrocytes [#/volume] in Blood by Automated count 2024-11-11 16:50:18 3.08 x 10^6 cells/uL F 3.85-5.2 Hematocrit [Volume Fraction] of Blood by Automated count 2024-11-11 16:50:18 29.6 % F 37.0-47.0 Hemoglobin [Mass/volume] in Blood 2024-11-11 16:50:18 8.6 g/dL F 12.0-16.0 Erythrocyte distribution width [Ratio] by Automated count 2024-11-11 16:50:16 16.3 % F 11.0-15.0 Platelets [#/volume] in Blood by Automated count 2024-11-11 16:50:16 139 x 10^3 cells/uL F 140.0-450.0 MCH [Entitic mass] by Automated count 2024-11-11 16:50:16 28.1 pg F 25.9-34.2 MCHC [Mass/volume] by Automated count 2024-11-11 16:50:16 29.2 g/dL F 29.6-35.3 MCV [Entitic volume] by Automated count 2024-11-11 16:50:16 96.2 fL F 80.0-100.0 Erythrocyte distribution width [Ratio] by Automated count 2024-11-11 16:50:16 16.3 % F 11.0-15.0 MCV [Entitic volume] by Automated count 2024-11-11 16:50:16 96.2 fL F 80.0-100.0 MCH [Entitic mass] by Automated count 2024-11-11 16:50:16 28.1 pg F 25.9-34.2 MCHC [Mass/volume] by Automated count 2024-11-11 16:50:16 29.2 g/dL F 29.6-35.3 Platelets [#/volume] in Blood by Automated count 2024-11-11 16:50:16 139 x 10^3 cells/uL F 140.0-450.0 Erythrocyte distribution width [Ratio] by Automated count 2024-11-11 16:50:16 16.3 % F 11.0-15.0 MCV [Entitic volume] by Automated count 2024-11-11 16:50:16 96.2 fL F 80.0-100.0 MCHC [Mass/volume] by Automated count 2024-11-11 16:50:16 29.2 g/dL F 29.6-35.3 MCH [Entitic mass] by Automated count 2024-11-11 16:50:16 28.1 pg F 25.9-34.2 Platelets [#/volume] in Blood by Automated count 2024-11-11 16:50:16 139 x 10^3 cells/uL F 140.0-450.0 Ferritin [Mass/volume] in Serum or Plasma 2024-11-11 13:32:18 F CANCELED - TEST CANCELED Ferritin [Mass/volume] in Serum or Plasma 2024-11-11 13:32:18 F CANCELED - TEST CANCELED Ferritin [Mass/volume] in Serum or Plasma 2024-11-11 13:32:18 F CANCELED - TEST CANCELED,CANCELE D - TEST CANCELED HCT CALC HGBX3 2024-10-02 19:13:45 30.6 % F 37.0-47.0 Hemoglobin [Mass/volume] in Blood 2024-10-02 19:13:11 10.2 g/dL F 12.0-16.0 HCT CALC HGBX3 2024-09-18 15:43:15 28.2 % F 37.0-47.0 HCT CALC HGBX3 2024-09-18 15:43:15 28.2 % F 37.0-47.0 HCT CALC HGBX3 2024-09-18 15:43:15 28.2 % F 37.0-47.0 Erythrocyte distribution width [Ratio] by Automated count 2024-09-18 15:42:13 15.8 % F 11.0-15.0 Hemoglobin [Mass/volume] in Blood 2024-09-18 15:42:13 9.4 g/dL F 12.0-16.0 Platelets [#/volume] in Blood by Automated count 2024-09-18 15:42:13 86 x 10^3 cells/uL F 140.0-450.0 MCH [Entitic mass] by Automated count 2024-09-18 15:42:13 31.1 pg F 25.9-34.2 MCHC [Mass/volume] by Automated count 2024-09-18 15:42:13 30.8 g/dL F 29.6-35.3 Erythrocytes [#/volume] in Blood by Automated count 2024-09-18 15:42:13 3.04 x 10^6 cells/uL F 3.85-5.2 Hematocrit [Volume Fraction] of Blood by Automated count 2024-09-18 15:42:13 30.7 % F 37.0-47.0 MCV [Entitic volume] by Automated count 2024-09-18 15:42:13 101 fL F 80.0-100.0 Hemoglobin [Mass/volume] in Blood 2024-09-18 15:42:13 9.4 g/dL F 12.0-16.0 Erythrocyte distribution width [Ratio] by Automated count 2024-09-18 15:42:13 15.8 % F 11.0-15.0 Platelets [#/volume] in Blood by Automated count 2024-09-18 15:42:13 86 x 10^3 cells/uL F 140.0-450.0 MCH [Entitic mass] by Automated count 2024-09-18 15:42:13 31.1 pg F 25.9-34.2 MCHC [Mass/volume] by Automated count 2024-09-18 15:42:13 30.8 g/dL F 29.6-35.3 Hematocrit [Volume Fraction] of Blood by Automated count 2024-09-18 15:42:13 30.7 % F 37.0-47.0 Erythrocytes [#/volume] in Blood by Automated count 2024-09-18 15:42:13 3.04 x 10^6 cells/uL F 3.85-5.2 MCV [Entitic volume] by Automated count 2024-09-18 15:42:13 101 fL F 80.0-100.0 Erythrocyte distribution width [Ratio] by Automated count 2024-09-18 15:42:13 15.8 % F 11.0-15.0 Erythrocytes [#/volume] in Blood by Automated count 2024-09-18 15:42:13 3.04 x 10^6 cells/uL F 3.85-5.2 Hematocrit [Volume Fraction] of Blood by Automated count 2024-09-18 15:42:13 30.7 % F 37.0-47.0 Hemoglobin [Mass/volume] in Blood 2024-09-18 15:42:13 9.4 g/dL F 12.0-16.0 MCV [Entitic volume] by Automated count 2024-09-18 15:42:13 101 fL F 80.0-100.0 MCH [Entitic mass] by Automated count 2024-09-18 15:42:13 31.1 pg F 25.9-34.2 MCHC [Mass/volume] by Automated count 2024-09-18 15:42:13 30.8 g/dL F 29.6-35.3 Platelets [#/volume] in Blood by Automated count 2024-09-18 15:42:13 86 x 10^3 cells/uL F 140.0-450.0 HCT CALC HGBX3 2024-09-04 14:25:01 29.7 % F 37.0-47.0 Hemoglobin [Mass/volume] in Blood 2024-09-04 14:24:18 9.9 g/dL F 12.0-16.0 IRON SATURATION 2024-08-23 06:29:40 15 % F 16.0-46.0 TIBC 2024-08-23 06:29:40 172 ug/dL F 250.0-425.0 Ferritin [Mass/volume] in Serum or Plasma 2024-08-23 05:45:57 481 ng/mL F 10.0-291.0 Iron [Mass/volume] in Serum or Plasma 2024-08-23 04:16:44 26 ug/dL F 50.0-170.0 Iron binding capacity.unsaturated [Mass/volume] in Serum or Plasma 2024-08-23 04:16:44 146 ug/dL F 80.0-375.0 HCT CALC HGBX3 2024-08-22 17:11:05 30.6 % F 37.0-47.0 Hemoglobin [Mass/volume] in Blood 2024-08-22 17:10:16 10.2 g/dL F 12.0-16.0 Erythrocyte distribution width [Ratio] by Automated count 2024-08-22 17:10:16 17.9 % F 11.0-15.0 Platelets [#/volume] in Blood by Automated count 2024-08-22 17:10:16 119 x 10^3 cells/uL F 140.0-450.0 MCH [Entitic mass] by Automated count 2024-08-22 17:10:16 32.1 pg F 25.9-34.2 Erythrocytes [#/volume] in Blood by Automated count 2024-08-22 17:10:16 3.17 x 10^6 cells/uL F 3.85-5.2 MCHC [Mass/volume] by Automated count 2024-08-22 17:10:16 30.3 g/dL F 29.6-35.3 Hematocrit [Volume Fraction] of Blood by Automated count 2024-08-22 17:10:16 33.5 % F 37.0-47.0 MCV [Entitic volume] by Automated count 2024-08-22 17:10:16 105.8 fL F 80.0-100.0 Ferritin [Mass/volume] in Serum or Plasma 2024-06-08 03:52:33 658 ng/mL F 10.0-291.0 Ferritin [Mass/volume] in Serum or Plasma 2024-06-08 03:52:33 658 ng/mL F 10.0-291.0 Ferritin [Mass/volume] in Serum or Plasma 2024-06-08 03:52:33 658 ng/mL F 10.0-291.0 IRON SATURATION 2024-06-08 02:47:54 24 % F 16.0-46.0 TIBC 2024-06-08 02:47:54 233 ug/dL F 250.0-425.0 IRON SATURATION 2024-06-08 02:47:54 24 % F 16.0-46.0 TIBC 2024-06-08 02:47:54 233 ug/dL F 250.0-425.0 IRON SATURATION 2024-06-08 02:47:54 24 % F 16.0-46.0 TIBC 2024-06-08 02:47:54 233 ug/dL F 250.0-425.0 Iron [Mass/volume] in Serum or Plasma 2024-06-08 02:36:57 57 ug/dL F 50.0-170.0 Iron binding capacity.unsaturated [Mass/volume] in Serum or Plasma 2024-06-08 02:36:57 176 ug/dL F 80.0-375.0 Iron [Mass/volume] in Serum or Plasma 2024-06-08 02:36:57 57 ug/dL F 50.0-170.0 Iron binding capacity.unsaturated [Mass/volume] in Serum or Plasma 2024-06-08 02:36:57 176 ug/dL F 80.0-375.0 Iron [Mass/volume] in Serum or Plasma 2024-06-08 02:36:57 57 ug/dL F 50.0-170.0 Iron binding capacity.unsaturated [Mass/volume] in Serum or Plasma 2024-06-08 02:36:57 176 ug/dL F 80.0-375.0 HCT CALC HGBX3 2024-06-07 18:51:02 29.1 % F 37.0-47.0 HCT CALC HGBX3 2024-06-07 18:51:02 29.1 % F 37.0-47.0 HCT CALC HGBX3 2024-06-07 18:51:02 29.1 % F 37.0-47.0 Hemoglobin [Mass/volume] in Blood 2024-06-07 18:50:11 9.7 g/dL F 12.0-16.0 Erythrocyte distribution width [Ratio] by Automated count 2024-06-07 18:50:11 14.7 % F 11.0-15.0 Platelets [#/volume] in Blood by Automated count 2024-06-07 18:50:11 99 x 10^3 cells/uL F 140.0-450.0 MCH [Entitic mass] by Automated count 2024-06-07 18:50:11 30.8 pg F 25.9-34.2 MCHC [Mass/volume] by Automated count 2024-06-07 18:50:11 30.9 g/dL F 29.6-35.3 Hematocrit [Volume Fraction] of Blood by Automated count 2024-06-07 18:50:11 31.4 % F 37.0-47.0 Erythrocytes [#/volume] in Blood by Automated count 2024-06-07 18:50:11 3.14 x 10'6 cells/uL F 3.85-5.2 MCV [Entitic volume] by Automated count 2024-06-07 18:50:11 99.8 fL F 80.0-100.0 Erythrocyte distribution width [Ratio] by Automated count 2024-06-07 18:50:11 14.7 % F 11.0-15.0 Hemoglobin [Mass/volume] in Blood 2024-06-07 18:50:11 9.7 g/dL F 12.0-16.0 Platelets [#/volume] in Blood by Automated count 2024-06-07 18:50:11 99 x 10^3 cells/uL F 140.0-450.0 MCH [Entitic mass] by Automated count 2024-06-07 18:50:11 30.8 pg F 25.9-34.2 MCHC [Mass/volume] by Automated count 2024-06-07 18:50:11 30.9 g/dL F 29.6-35.3 Erythrocytes [#/volume] in Blood by Automated count 2024-06-07 18:50:11 3.14 x 10'6 cells/uL F 3.85-5.2 Hematocrit [Volume Fraction] of Blood by Automated count 2024-06-07 18:50:11 31.4 % F 37.0-47.0 MCV [Entitic volume] by Automated count 2024-06-07 18:50:11 99.8 fL F 80.0-100.0 Erythrocyte distribution width [Ratio] by Automated count 2024-06-07 18:50:11 14.7 % F 11.0-15.0 Erythrocytes [#/volume] in Blood by Automated count 2024-06-07 18:50:11 3.14 x 10'6 cells/uL F 3.85-5.2 Hemoglobin [Mass/volume] in Blood 2024-06-07 18:50:11 9.7 g/dL F 12.0-16.0 Hematocrit [Volume Fraction] of Blood by Automated count 2024-06-07 18:50:11 31.4 % F 37.0-47.0 MCH [Entitic mass] by Automated count 2024-06-07 18:50:11 30.8 pg F 25.9-34.2 Platelets [#/volume] in Blood by Automated count 2024-06-07 18:50:11 99 x 10^3 cells/uL F 140.0-450.0 MCHC [Mass/volume] by Automated count 2024-06-07 18:50:11 30.9 g/dL F 29.6-35.3 MCV [Entitic volume] by Automated count 2024-06-07 18:50:11 99.8 fL F 80.0-100.0 Ferritin [Mass/volume] in Serum or Plasma 2024-06-05 08:27:41 668 ng/mL F 10.0-291.0 Ferritin [Mass/volume] in Serum or Plasma 2024-06-05 08:27:41 668 ng/mL F 10.0-291.0 IRON SATURATION 2024-06-04 08:20:52 24 % F 16.0-46.0 TIBC 2024-06-04 08:20:52 247 ug/dL F 250.0-425.0 IRON SATURATION 2024-06-04 08:20:52 24 % F 16.0-46.0 TIBC 2024-06-04 08:20:52 247 ug/dL F 250.0-425.0 Iron [Mass/volume] in Serum or Plasma 2024-06-04 07:45:41 59 ug/dL F 50.0-170.0 Iron binding capacity.unsaturated [Mass/volume] in Serum or Plasma 2024-06-04 07:45:41 188 ug/dL F 80.0-375.0 Iron [Mass/volume] in Serum or Plasma 2024-06-04 07:45:41 59 ug/dL F 50.0-170.0 Iron binding capacity.unsaturated [Mass/volume] in Serum or Plasma 2024-06-04 07:45:41 188 ug/dL F 80.0-375.0 HCT CALC HGBX3 2024-06-04 05:31:37 30.9 % F 37.0-47.0 HCT CALC HGBX3 2024-06-04 05:31:37 30.9 % F 37.0-47.0 Erythrocyte distribution width [Ratio] by Automated count 2024-06-04 05:30:13 15.5 % F 11.0-15.0 Hemoglobin [Mass/volume] in Blood 2024-06-04 05:30:13 10.3 g/dL F 12.0-16.0 Platelets [#/volume] in Blood by Automated count 2024-06-04 05:30:13 106 x 10^3 cells/uL F 140.0-450.0 MCH [Entitic mass] by Automated count 2024-06-04 05:30:13 31 pg F 25.9-34.2 MCHC [Mass/volume] by Automated count 2024-06-04 05:30:13 30.6 g/dL F 29.6-35.3 Erythrocytes [#/volume] in Blood by Automated count 2024-06-04 05:30:13 3.32 x 10'6 cells/uL F 3.85-5.2 Hematocrit [Volume Fraction] of Blood by Automated count 2024-06-04 05:30:13 33.6 % F 37.0-47.0 MCV [Entitic volume] by Automated count 2024-06-04 05:30:13 101.2 fL F 80.0-100.0 Erythrocytes [#/volume] in Blood by Automated count 2024-06-04 05:30:13 3.32 x 10'6 cells/uL F 3.85-5.2 Erythrocyte distribution width [Ratio] by Automated count 2024-06-04 05:30:13 15.5 % F 11.0-15.0 Hematocrit [Volume Fraction] of Blood by Automated count 2024-06-04 05:30:13 33.6 % F 37.0-47.0 Hemoglobin [Mass/volume] in Blood 2024-06-04 05:30:13 10.3 g/dL F 12.0-16.0 MCV [Entitic volume] by Automated count 2024-06-04 05:30:13 101.2 fL F 80.0-100.0 MCH [Entitic mass] by Automated count 2024-06-04 05:30:13 31 pg F 25.9-34.2 Platelets [#/volume] in Blood by Automated count 2024-06-04 05:30:13 106 x 10^3 cells/uL F 140.0-450.0 MCHC [Mass/volume] by Automated count 2024-06-04 05:30:13 30.6 g/dL F 29.6-35.3 HCT CALC HGBX3 2024-05-06 13:03:04 32.1 % F 37.0-47.0 Hemoglobin [Mass/volume] in Blood 2024-05-06 13:02:10 10.7 g/dL F 12.0-16.0 MCHC [Mass/volume] by Automated count 2024-05-06 13:02:10 30.9 g/dL F 29.6-35.3 Hematocrit [Volume Fraction] of Blood by Automated count 2024-05-06 13:02:10 34.5 % F 37.0-47.0 Erythrocyte distribution width [Ratio] by Automated count 2024-05-06 13:02:09 16.2 % F 11.0-15.0 Platelets [#/volume] in Blood by Automated count 2024-05-06 13:02:09 97 x 10^3 cells/uL F 140.0-450.0 MCH [Entitic mass] by Automated count 2024-05-06 13:02:09 31.2 pg F 25.9-34.2 Erythrocytes [#/volume] in Blood by Automated count 2024-05-06 13:02:09 3.41 x 10'6 cells/uL F 3.85-5.2 MCV [Entitic volume] by Automated count 2024-05-06 13:02:09 101 fL F 80.0-100.0 HCT CALC HGBX3 2024-04-01 18:47:50 33.3 % F 37.0-47.0 HCT CALC HGBX3 2024-04-01 18:47:50 33.3 % F 37.0-47.0 Erythrocyte distribution width [Ratio] by Automated count 2024-04-01 18:47:26 15.3 % F 11.0-15.0 Hemoglobin [Mass/volume] in Blood 2024-04-01 18:47:26 11.1 g/dL F 12.0-16.0 Platelets [#/volume] in Blood by Automated count 2024-04-01 18:47:26 90 x 10^3 cells/uL F 140.0-450.0 MCHC [Mass/volume] by Automated count 2024-04-01 18:47:26 31.2 g/dL F 29.6-35.3 Erythrocytes [#/volume] in Blood by Automated count 2024-04-01 18:47:26 3.5 x 10'6 cells/uL F 3.85-5.2 Hematocrit [Volume Fraction] of Blood by Automated count 2024-04-01 18:47:26 35.4 % F 37.0-47.0 Erythrocyte distribution width [Ratio] by Automated count 2024-04-01 18:47:26 15.3 % F 11.0-15.0 Hemoglobin [Mass/volume] in Blood 2024-04-01 18:47:26 11.1 g/dL F 12.0-16.0 Platelets [#/volume] in Blood by Automated count 2024-04-01 18:47:26 90 x 10^3 cells/uL F 140.0-450.0 MCHC [Mass/volume] by Automated count 2024-04-01 18:47:26 31.2 g/dL F 29.6-35.3 Hematocrit [Volume Fraction] of Blood by Automated count 2024-04-01 18:47:26 35.4 % F 37.0-47.0 Erythrocytes [#/volume] in Blood by Automated count 2024-04-01 18:47:26 3.5 x 10'6 cells/uL F 3.85-5.2 MCH [Entitic mass] by Automated count 2024-04-01 18:47:24 31.5 pg F 25.9-34.2 MCV [Entitic volume] by Automated count 2024-04-01 18:47:24 101 fL F 80.0-100.0 MCH [Entitic mass] by Automated count 2024-04-01 18:47:24 31.5 pg F 25.9-34.2 MCV [Entitic volume] by Automated count 2024-04-01 18:47:24 101 fL F 80.0-100.0 IRON SATURATION 2024-03-05 07:10:49 20 % F 16.0-46.0 TIBC 2024-03-05 07:10:49 254 ug/dL F 250.0-425.0 IRON SATURATION 2024-03-05 07:10:49 20 % F 16.0-46.0 TIBC 2024-03-05 07:10:49 254 ug/dL F 250.0-425.0 Iron [Mass/volume] in Serum or Plasma 2024-03-05 07:05:21 52 ug/dL F 50.0-170.0 Iron [Mass/volume] in Serum or Plasma 2024-03-05 07:05:21 52 ug/dL F 50.0-170.0 Iron binding capacity.unsaturated [Mass/volume] in Serum or Plasma 2024-03-05 07:04:53 202 ug/dL F 80.0-375.0 Iron binding capacity.unsaturated [Mass/volume] in Serum or Plasma 2024-03-05 07:04:53 202 ug/dL F 80.0-375.0 Ferritin [Mass/volume] in Serum or Plasma 2024-03-05 02:42:47 590 ng/mL F 10.0-291.0 Ferritin [Mass/volume] in Serum or Plasma 2024-03-05 02:42:47 590 ng/mL F 10.0-291.0 HCT CALC HGBX3 2024-03-05 01:14:17 32.7 % F 37.0-47.0 HCT CALC HGBX3 2024-03-05 01:14:17 32.7 % F 37.0-47.0 Erythrocyte distribution width [Ratio] by Automated count 2024-03-05 01:13:27 13.7 % F 11.0-15.0 Hemoglobin [Mass/volume] in Blood 2024-03-05 01:13:27 10.9 g/dL F 12.0-16.0 Platelets [#/volume] in Blood by Automated count 2024-03-05 01:13:27 99 x 10^3 cells/uL F 140.0-450.0 MCH [Entitic mass] by Automated count 2024-03-05 01:13:27 32.4 pg F 25.9-34.2 MCHC [Mass/volume] by Automated count 2024-03-05 01:13:27 31.5 g/dL F 29.6-35.3 Erythrocytes [#/volume] in Blood by Automated count 2024-03-05 01:13:27 3.36 x 10'6 cells/uL F 3.85-5.2 Hematocrit [Volume Fraction] of Blood by Automated count 2024-03-05 01:13:27 34.5 % F 37.0-47.0 MCV [Entitic volume] by Automated count 2024-03-05 01:13:27 102.8 fL F 80.0-100.0 Hemoglobin [Mass/volume] in Blood 2024-03-05 01:13:27 10.9 g/dL F 12.0-16.0 Erythrocyte distribution width [Ratio] by Automated count 2024-03-05 01:13:27 13.7 % F 11.0-15.0 Platelets [#/volume] in Blood by Automated count 2024-03-05 01:13:27 99 x 10^3 cells/uL F 140.0-450.0 MCH [Entitic mass] by Automated count 2024-03-05 01:13:27 32.4 pg F 25.9-34.2 MCHC [Mass/volume] by Automated count 2024-03-05 01:13:27 31.5 g/dL F 29.6-35.3 Erythrocytes [#/volume] in Blood by Automated count 2024-03-05 01:13:27 3.36 x 10'6 cells/uL F 3.85-5.2 Hematocrit [Volume Fraction] of Blood by Automated count 2024-03-05 01:13:27 34.5 % F 37.0-47.0 MCV [Entitic volume] by Automated count 2024-03-05 01:13:27 102.8 fL F 80.0-100.0 HCT CALC HGBX3 2024-01-30 05:17:28 29.1 % F 37.0-47.0 HCT CALC HGBX3 2024-01-30 05:17:28 29.1 % F 37.0-47.0 Erythrocyte distribution width [Ratio] by Automated count 2024-01-30 05:13:33 14.5 % F 11.0-15.0 Hematocrit [Volume Fraction] of Blood by Automated count 2024-01-30 05:13:33 31.1 % F 37.0-47.0 Hemoglobin [Mass/volume] in Blood 2024-01-30 05:13:33 9.7 g/dL F 12.0-16.0 Erythrocytes [#/volume] in Blood by Automated count 2024-01-30 05:13:33 3.02 x 10'6 cells/uL F 3.85-5.2 MCV [Entitic volume] by Automated count 2024-01-30 05:13:33 102.8 fL F 80.0-100.0 MCHC [Mass/volume] by Automated count 2024-01-30 05:13:33 31.4 g/dL F 29.6-35.3 Platelets [#/volume] in Blood by Automated count 2024-01-30 05:13:33 111 x 10^3 cells/uL F 140.0-450.0 MCH [Entitic mass] by Automated count 2024-01-30 05:13:33 32.2 pg F 25.9-34.2 Erythrocyte distribution width [Ratio] by Automated count 2024-01-30 05:13:33 14.5 % F 11.0-15.0 Hemoglobin [Mass/volume] in Blood 2024-01-30 05:13:33 9.7 g/dL F 12.0-16.0 MCHC [Mass/volume] by Automated count 2024-01-30 05:13:33 31.4 g/dL F 29.6-35.3 MCH [Entitic mass] by Automated count 2024-01-30 05:13:33 32.2 pg F 25.9-34.2 Platelets [#/volume] in Blood by Automated count 2024-01-30 05:13:33 111 x 10^3 cells/uL F 140.0-450.0 Erythrocytes [#/volume] in Blood by Automated count 2024-01-30 05:13:33 3.02 x 10'6 cells/uL F 3.85-5.2 Hematocrit [Volume Fraction] of Blood by Automated count 2024-01-30 05:13:33 31.1 % F 37.0-47.0 MCV [Entitic volume] by Automated count 2024-01-30 05:13:33 102.8 fL F 80.0-100.0 HCT CALC HGBX3 2024-01-02 06:58:17 29.4 % F 37.0-47.0 HCT CALC HGBX3 2024-01-02 06:58:17 29.4 % F 37.0-47.0 Erythrocyte distribution width [Ratio] by Automated count 2024-01-02 06:54:31 15.2 % F 11.0-15.0 Hemoglobin [Mass/volume] in Blood 2024-01-02 06:54:31 9.8 g/dL F 12.0-16.0 Platelets [#/volume] in Blood by Automated count 2024-01-02 06:54:31 101 x 10^3 cells/uL F 140.0-450.0 MCH [Entitic mass] by Automated count 2024-01-02 06:54:31 31.8 pg F 25.9-34.2 MCHC [Mass/volume] by Automated count 2024-01-02 06:54:31 31.7 g/dL F 29.6-35.3 Erythrocytes [#/volume] in Blood by Automated count 2024-01-02 06:54:31 3.1 x 10'6 cells/uL F 3.85-5.2 Hematocrit [Volume Fraction] of Blood by Automated count 2024-01-02 06:54:31 31.1 % F 37.0-47.0 MCV [Entitic volume] by Automated count 2024-01-02 06:54:31 100.4 fL F 80.0-100.0 Erythrocyte distribution width [Ratio] by Automated count 2024-01-02 06:54:31 15.2 % F 11.0-15.0 Hemoglobin [Mass/volume] in Blood 2024-01-02 06:54:31 9.8 g/dL F 12.0-16.0 Platelets [#/volume] in Blood by Automated count 2024-01-02 06:54:31 101 x 10^3 cells/uL F 140.0-450.0 MCH [Entitic mass] by Automated count 2024-01-02 06:54:31 31.8 pg F 25.9-34.2 MCHC [Mass/volume] by Automated count 2024-01-02 06:54:31 31.7 g/dL F 29.6-35.3 Hematocrit [Volume Fraction] of Blood by Automated count 2024-01-02 06:54:31 31.1 % F 37.0-47.0 Erythrocytes [#/volume] in Blood by Automated count 2024-01-02 06:54:31 3.1 x 10'6 cells/uL F 3.85-5.2 MCV [Entitic volume] by Automated count 2024-01-02 06:54:31 100.4 fL F 80.0-100.0 HCT CALC HGBX3 2023-12-11 07:30:16 F Canceled - Specimen not received 5 days past draw date HCT CALC HGBX3 2023-12-11 07:30:16 F Canceled - Specimen not received 5 days past draw date HCT CALC HGBX3 2023-12-11 07:30:16 F Canceled - Specimen not received 5 days past draw date MCH [Entitic mass] by Automated count 2023-12-11 07:20:46 F Canceled - Specimen not received 5 days past draw date MCHC [Mass/volume] by Automated count 2023-12-11 07:20:46 F Canceled - Specimen not received 5 days past draw date MCV [Entitic volume] by Automated count 2023-12-11 07:20:46 F Canceled - Specimen not received 5 days past draw date Hemoglobin [Mass/volume] in Blood 2023-12-11 07:20:46 F Canceled - Specimen not received 5 days past draw date Platelets [#/volume] in Blood by Automated count 2023-12-11 07:20:46 F Canceled - Specimen not received 5 days past draw date Hematocrit [Volume Fraction] of Blood by Automated count 2023-12-11 07:20:46 F Canceled - Specimen not received 5 days past draw date MCH [Entitic mass] by Automated count 2023-12-11 07:20:46 F Canceled - Specimen not received 5 days past draw date MCHC [Mass/volume] by Automated count 2023-12-11 07:20:46 F Canceled - Specimen not received 5 days past draw date MCV [Entitic volume] by Automated count 2023-12-11 07:20:46 F Canceled - Specimen not received 5 days past draw date Hemoglobin [Mass/volume] in Blood 2023-12-11 07:20:46 F Canceled - Specimen not received 5 days past draw date Platelets [#/volume] in Blood by Automated count 2023-12-11 07:20:46 F Canceled - Specimen not received 5 days past draw date Hematocrit [Volume Fraction] of Blood by Automated count 2023-12-11 07:20:46 F Canceled - Specimen not received 5 days past draw date Hematocrit [Volume Fraction] of Blood by Automated count 2023-12-11 07:20:46 F Canceled - Specimen not received 5 days past draw date MCV [Entitic volume] by Automated count 2023-12-11 07:20:46 F Canceled - Specimen not received 5 days past draw date MCH [Entitic mass] by Automated count 2023-12-11 07:20:46 F Canceled - Specimen not received 5 days past draw date Hemoglobin [Mass/volume] in Blood 2023-12-11 07:20:46 F Canceled - Specimen not received 5 days past draw date MCHC [Mass/volume] by Automated count 2023-12-11 07:20:46 F Canceled - Specimen not received 5 days past draw date Platelets [#/volume] in Blood by Automated count 2023-12-11 07:20:46 F Canceled - Specimen not received 5 days past draw date Erythrocyte distribution width [Ratio] by Automated count 2023-12-11 07:20:45 F Canceled - Specimen not received 5 days past draw date Erythrocytes [#/volume] in Blood by Automated count 2023-12-11 07:20:45 F Canceled - Specimen not received 5 days past draw date Erythrocyte distribution width [Ratio] by Automated count 2023-12-11 07:20:45 F Canceled - Specimen not received 5 days past draw date Erythrocytes [#/volume] in Blood by Automated count 2023-12-11 07:20:45 F Canceled - Specimen not received 5 days past draw date Erythrocyte distribution width [Ratio] by Automated count 2023-12-11 07:20:45 F Canceled - Specimen not received 5 days past draw date Erythrocytes [#/volume] in Blood by Automated count 2023-12-11 07:20:45 F Canceled - Specimen not received 5 days past draw date Ferritin [Mass/volume] in Serum or Plasma 2023-12-07 03:40:52 556 ng/mL F 10.0-291.0 Ferritin [Mass/volume] in Serum or Plasma 2023-12-07 03:40:52 556 ng/mL F 10.0-291.0 Ferritin [Mass/volume] in Serum or Plasma 2023-12-07 03:40:52 556 ng/mL F 10.0-291.0 IRON SATURATION 2023-12-06 15:55:13 28 % F 16.0-46.0 TIBC 2023-12-06 15:55:13 240 ug/dL F 250.0-425.0 IRON SATURATION 2023-12-06 15:55:13 28 % F 16.0-46.0 TIBC 2023-12-06 15:55:13 240 ug/dL F 250.0-425.0 IRON SATURATION 2023-12-06 15:55:13 28 % F 16.0-46.0 TIBC 2023-12-06 15:55:13 240 ug/dL F 250.0-425.0 Iron [Mass/volume] in Serum or Plasma 2023-12-06 15:53:30 66 ug/dL F 50.0-170.0 Iron binding capacity.unsaturated [Mass/volume] in Serum or Plasma 2023-12-06 15:53:30 174 ug/dL F 80.0-375.0 Iron [Mass/volume] in Serum or Plasma 2023-12-06 15:53:30 66 ug/dL F 50.0-170.0 Iron binding capacity.unsaturated [Mass/volume] in Serum or Plasma 2023-12-06 15:53:30 174 ug/dL F 80.0-375.0 Iron [Mass/volume] in Serum or Plasma 2023-12-06 15:53:30 66 ug/dL F 50.0-170.0 Iron binding capacity.unsaturated [Mass/volume] in Serum or Plasma 2023-12-06 15:53:30 174 ug/dL F 80.0-375.0 HCT CALC HGBX3 2023-10-31 02:06:23 32.4 % F 37.0-47.0 Hemoglobin [Mass/volume] in Blood 2023-10-31 02:05:57 10.8 g/dL F 12.0-16.0 Erythrocyte distribution width [Ratio] by Automated count 2023-10-31 02:05:57 15 % F 11.0-15.0 Platelets [#/volume] in Blood by Automated count 2023-10-31 02:05:57 81 x 10^3 cells/uL F 140.0-450.0 MCHC [Mass/volume] by Automated count 2023-10-31 02:05:57 31.7 g/dL F 29.6-35.3 MCH [Entitic mass] by Automated count 2023-10-31 02:05:57 31.5 pg F 25.9-34.2 Erythrocytes [#/volume] in Blood by Automated count 2023-10-31 02:05:57 3.44 x 10'6 cells/uL F 3.85-5.2 Hematocrit [Volume Fraction] of Blood by Automated count 2023-10-31 02:05:57 34.1 % F 37.0-47.0 MCV [Entitic volume] by Automated count 2023-10-31 02:05:57 99.2 fL F 80.0-100.0 HCT CALC HGBX3 2023-10-02 17:19:27 32.7 % F 37.0-47.0 HCT CALC HGBX3 2023-10-02 17:19:27 32.7 % F 37.0-47.0 HCT CALC HGBX3 2023-10-02 17:19:27 32.7 % F 37.0-47.0 Hematocrit [Volume Fraction] of Blood by Automated count 2023-10-02 17:18:42 33.7 % F 37.0-47.0 Erythrocyte distribution width [Ratio] by Automated count 2023-10-02 17:18:42 15.2 % F 11.0-15.0 Erythrocytes [#/volume] in Blood by Automated count 2023-10-02 17:18:42 3.57 x 10'6 cells/uL F 3.85-5.2 Hemoglobin [Mass/volume] in Blood 2023-10-02 17:18:42 10.9 g/dL F 12.0-16.0 MCV [Entitic volume] by Automated count 2023-10-02 17:18:42 94.5 fL F 80.0-100.0 MCH [Entitic mass] by Automated count 2023-10-02 17:18:42 30.5 pg F 25.9-34.2 MCHC [Mass/volume] by Automated count 2023-10-02 17:18:42 32.2 g/dL F 29.6-35.3 Platelets [#/volume] in Blood by Automated count 2023-10-02 17:18:42 79 x 10^3 cells/uL F 140.0-450.0 Erythrocyte distribution width [Ratio] by Automated count 2023-10-02 17:18:42 15.2 % F 11.0-15.0 Erythrocytes [#/volume] in Blood by Automated count 2023-10-02 17:18:42 3.57 x 10'6 cells/uL F 3.85-5.2 Hematocrit [Volume Fraction] of Blood by Automated count 2023-10-02 17:18:42 33.7 % F 37.0-47.0 Hemoglobin [Mass/volume] in Blood 2023-10-02 17:18:42 10.9 g/dL F 12.0-16.0 MCV [Entitic volume] by Automated count 2023-10-02 17:18:42 94.5 fL F 80.0-100.0 MCH [Entitic mass] by Automated count 2023-10-02 17:18:42 30.5 pg F 25.9-34.2 MCHC [Mass/volume] by Automated count 2023-10-02 17:18:42 32.2 g/dL F 29.6-35.3 Platelets [#/volume] in Blood by Automated count 2023-10-02 17:18:42 79 x 10^3 cells/uL F 140.0-450.0 Erythrocyte distribution width [Ratio] by Automated count 2023-10-02 17:18:42 15.2 % F 11.0-15.0 Platelets [#/volume] in Blood by Automated count 2023-10-02 17:18:42 79 x 10^3 cells/uL F 140.0-450.0 Hemoglobin [Mass/volume] in Blood 2023-10-02 17:18:42 10.9 g/dL F 12.0-16.0 MCHC [Mass/volume] by Automated count 2023-10-02 17:18:42 32.2 g/dL F 29.6-35.3 MCH [Entitic mass] by Automated count 2023-10-02 17:18:42 30.5 pg F 25.9-34.2 Hematocrit [Volume Fraction] of Blood by Automated count 2023-10-02 17:18:42 33.7 % F 37.0-47.0 Erythrocytes [#/volume] in Blood by Automated count 2023-10-02 17:18:42 3.57 x 10'6 cells/uL F 3.85-5.2 MCV [Entitic volume] by Automated count 2023-10-02 17:18:42 94.5 fL F 80.0-100.0 Ferritin [Mass/volume] in Serum or Plasma 2023-09-05 07:21:50 333 ng/mL F 10.0-291.0 Ferritin [Mass/volume] in Serum or Plasma 2023-09-05 07:21:50 333 ng/mL F 10.0-291.0 Ferritin [Mass/volume] in Serum or Plasma 2023-09-05 07:21:50 333 ng/mL F 10.0-291.0 IRON SATURATION 2023-09-05 06:23:55 15 % F 16.0-46.0 TIBC 2023-09-05 06:23:55 241 ug/dL F 250.0-425.0 IRON SATURATION 2023-09-05 06:23:55 15 % F 16.0-46.0 TIBC 2023-09-05 06:23:55 241 ug/dL F 250.0-425.0 IRON SATURATION 2023-09-05 06:23:55 15 % F 16.0-46.0 TIBC 2023-09-05 06:23:55 241 ug/dL F 250.0-425.0 Iron [Mass/volume] in Serum or Plasma 2023-09-05 06:15:31 36 ug/dL F 50.0-170.0 Iron [Mass/volume] in Serum or Plasma 2023-09-05 06:15:31 36 ug/dL F 50.0-170.0 Iron [Mass/volume] in Serum or Plasma 2023-09-05 06:15:31 36 ug/dL F 50.0-170.0 Iron binding capacity.unsaturated [Mass/volume] in Serum or Plasma 2023-09-05 06:15:27 205 ug/dL F 80.0-375.0 Iron binding capacity.unsaturated [Mass/volume] in Serum or Plasma 2023-09-05 06:15:27 205 ug/dL F 80.0-375.0 Iron binding capacity.unsaturated [Mass/volume] in Serum or Plasma 2023-09-05 06:15:27 205 ug/dL F 80.0-375.0 HCT CALC HGBX3 2023-09-05 02:42:16 34.2 % F 37.0-47.0 HCT CALC HGBX3 2023-09-05 02:42:16 34.2 % F 37.0-47.0 HCT CALC HGBX3 2023-09-05 02:42:16 34.2 % F 37.0-47.0 Erythrocyte distribution width [Ratio] by Automated count 2023-09-05 02:42:06 15.6 % F 11.0-15.0 Platelets [#/volume] in Blood by Automated count 2023-09-05 02:42:06 84 x 10^3 cells/uL F 140.0-450.0 Erythrocyte distribution width [Ratio] by Automated count 2023-09-05 02:42:06 15.6 % F 11.0-15.0 Platelets [#/volume] in Blood by Automated count 2023-09-05 02:42:06 84 x 10^3 cells/uL F 140.0-450.0 Erythrocyte distribution width [Ratio] by Automated count 2023-09-05 02:42:06 15.6 % F 11.0-15.0 Platelets [#/volume] in Blood by Automated count 2023-09-05 02:42:06 84 x 10^3 cells/uL F 140.0-450.0 Hematocrit [Volume Fraction] of Blood by Automated count 2023-09-05 02:41:58 35.6 % F 37.0-47.0 MCH [Entitic mass] by Automated count 2023-09-05 02:41:58 30.4 pg F 25.9-34.2 MCV [Entitic volume] by Automated count 2023-09-05 02:41:58 95.3 fL F 80.0-100.0 Erythrocytes [#/volume] in Blood by Automated count 2023-09-05 02:41:58 3.74 x 10'6 cells/uL F 3.85-5.2 Hemoglobin [Mass/volume] in Blood 2023-09-05 02:41:58 11.4 g/dL F 12.0-16.0 MCHC [Mass/volume] by Automated count 2023-09-05 02:41:58 31.9 g/dL F 29.6-35.3 Erythrocytes [#/volume] in Blood by Automated count 2023-09-05 02:41:58 3.74 x 10'6 cells/uL F 3.85-5.2 MCV [Entitic volume] by Automated count 2023-09-05 02:41:58 95.3 fL F 80.0-100.0 Hemoglobin [Mass/volume] in Blood 2023-09-05 02:41:58 11.4 g/dL F 12.0-16.0 Hematocrit [Volume Fraction] of Blood by Automated count 2023-09-05 02:41:58 35.6 % F 37.0-47.0 MCH [Entitic mass] by Automated count 2023-09-05 02:41:58 30.4 pg F 25.9-34.2 MCHC [Mass/volume] by Automated count 2023-09-05 02:41:58 31.9 g/dL F 29.6-35.3 Hemoglobin [Mass/volume] in Blood 2023-09-05 02:41:58 11.4 g/dL F 12.0-16.0 MCH [Entitic mass] by Automated count 2023-09-05 02:41:58 30.4 pg F 25.9-34.2 MCHC [Mass/volume] by Automated count 2023-09-05 02:41:58 31.9 g/dL F 29.6-35.3 Erythrocytes [#/volume] in Blood by Automated count 2023-09-05 02:41:58 3.74 x 10'6 cells/uL F 3.85-5.2 Hematocrit [Volume Fraction] of Blood by Automated count 2023-09-05 02:41:58 35.6 % F 37.0-47.0 MCV [Entitic volume] by Automated count 2023-09-05 02:41:58 95.3 fL F 80.0-100.0 HCT CALC HGBX3 2023-08-03 00:52:46 F Recollect - Labeling Error HCT CALC HGBX3 2023-08-03 00:52:46 F Recollect - Labeling Error HCT CALC HGBX3 2023-08-03 00:52:46 F Recollect - Labeling Error MCHC [Mass/volume] by Automated count 2023-08-03 00:51:48 F Recollect - Labeling Error,received sst for lav 31 Platelets [#/volume] in Blood by Automated count 2023-08-03 00:51:48 F Recollect - Labeling Error,received sst for lav 31 MCHC [Mass/volume] by Automated count 2023-08-03 00:51:48 F Recollect - Labeling Error,received sst for lav 31 Platelets [#/volume] in Blood by Automated count 2023-08-03 00:51:48 F Recollect - Labeling Error,received sst for lav 31 MCHC [Mass/volume] by Automated count 2023-08-03 00:51:48 F Recollect - Labeling Error,received sst for lav 31 Platelets [#/volume] in Blood by Automated count 2023-08-03 00:51:48 F Recollect - Labeling Error,received sst for lav 31 Hematocrit [Volume Fraction] of Blood by Automated count 2023-08-03 00:51:47 F Recollect - Labeling Error,received sst for lav 31 MCV [Entitic volume] by Automated count 2023-08-03 00:51:47 F Recollect - Labeling Error,received sst for lav 31 Erythrocyte distribution width [Ratio] by Automated count 2023-08-03 00:51:47 F Recollect - Labeling Error,received sst for lav 31 Hematocrit [Volume Fraction] of Blood by Automated count 2023-08-03 00:51:47 F Recollect - Labeling Error,received sst for lav 31 Erythrocytes [#/volume] in Blood by Automated count 2023-08-03 00:51:47 F Recollect - Labeling Error,received sst for lav 31 MCV [Entitic volume] by Automated count 2023-08-03 00:51:47 F Recollect - Labeling Error,received sst for lav 31 MCH [Entitic mass] by Automated count 2023-08-03 00:51:47 F Recollect - Labeling Error,received sst for lav 31 Hemoglobin [Mass/volume] in Blood 2023-08-03 00:51:47 F Recollect - Labeling Error,received sst for lav 31 Erythrocytes [#/volume] in Blood by Automated count 2023-08-03 00:51:47 F Recollect - Labeling Error,received sst for lav 31 Hematocrit [Volume Fraction] of Blood by Automated count 2023-08-03 00:51:47 F Recollect - Labeling Error,received sst for lav 31 Erythrocyte distribution width [Ratio] by Automated count 2023-08-03 00:51:47 F Recollect - Labeling Error,received sst for lav 31 Hemoglobin [Mass/volume] in Blood 2023-08-03 00:51:47 F Recollect - Labeling Error,received sst for lav 31 MCV [Entitic volume] by Automated count 2023-08-03 00:51:47 F Recollect - Labeling Error,received sst for lav 31 MCH [Entitic mass] by Automated count 2023-08-03 00:51:47 F Recollect - Labeling Error,received sst for lav 31 Erythrocyte distribution width [Ratio] by Automated count 2023-08-03 00:51:47 F Recollect - Labeling Error,received sst for lav 31 MCH [Entitic mass] by Automated count 2023-08-03 00:51:47 F Recollect - Labeling Error,received sst for lav 31 Erythrocytes [#/volume] in Blood by Automated count 2023-08-03 00:51:47 F Recollect - Labeling Error,received sst for lav 31 Hemoglobin [Mass/volume] in Blood 2023-08-03 00:51:47 F Recollect - Labeling Error,received sst for lav 31 HCT CALC HGBX3 2023-07-06 19:14:00 30.3 % F 37.0-47.0 HCT CALC HGBX3 2023-07-06 19:14:00 30.3 % F 37.0-47.0 HCT CALC HGBX3 2023-07-06 19:14:00 30.3 % F 37.0-47.0 Erythrocyte distribution width [Ratio] by Automated count 2023-07-06 19:13:04 17 % F 11.0-15.0 Hemoglobin [Mass/volume] in Blood 2023-07-06 19:13:04 10.1 g/dL F 12.0-16.0 Platelets [#/volume] in Blood by Automated count 2023-07-06 19:13:04 114 x 10^3 cells/uL F 140.0-450.0 Erythrocytes [#/volume] in Blood by Automated count 2023-07-06 19:13:04 3.41 x 10'6 cells/uL F 3.85-5.2 Hematocrit [Volume Fraction] of Blood by Automated count 2023-07-06 19:13:04 33.5 % F 37.0-47.0 Erythrocyte distribution width [Ratio] by Automated count 2023-07-06 19:13:04 17 % F 11.0-15.0 Hemoglobin [Mass/volume] in Blood 2023-07-06 19:13:04 10.1 g/dL F 12.0-16.0 Platelets [#/volume] in Blood by Automated count 2023-07-06 19:13:04 114 x 10^3 cells/uL F 140.0-450.0 Erythrocytes [#/volume] in Blood by Automated count 2023-07-06 19:13:04 3.41 x 10'6 cells/uL F 3.85-5.2 Hematocrit [Volume Fraction] of Blood by Automated count 2023-07-06 19:13:04 33.5 % F 37.0-47.0 Erythrocyte distribution width [Ratio] by Automated count 2023-07-06 19:13:04 17 % F 11.0-15.0 Erythrocytes [#/volume] in Blood by Automated count 2023-07-06 19:13:04 3.41 x 10'6 cells/uL F 3.85-5.2 Hematocrit [Volume Fraction] of Blood by Automated count 2023-07-06 19:13:04 33.5 % F 37.0-47.0 Hemoglobin [Mass/volume] in Blood 2023-07-06 19:13:04 10.1 g/dL F 12.0-16.0 Platelets [#/volume] in Blood by Automated count 2023-07-06 19:13:04 114 x 10^3 cells/uL F 140.0-450.0 MCH [Entitic mass] by Automated count 2023-07-06 19:13:02 29.7 pg F 25.9-34.2 MCHC [Mass/volume] by Automated count 2023-07-06 19:13:02 30.2 g/dL F 29.6-35.3 MCV [Entitic volume] by Automated count 2023-07-06 19:13:02 98.2 fL F 80.0-100.0 MCH [Entitic mass] by Automated count 2023-07-06 19:13:02 29.7 pg F 25.9-34.2 MCHC [Mass/volume] by Automated count 2023-07-06 19:13:02 30.2 g/dL F 29.6-35.3 MCV [Entitic volume] by Automated count 2023-07-06 19:13:02 98.2 fL F 80.0-100.0 MCV [Entitic volume] by Automated count 2023-07-06 19:13:02 98.2 fL F 80.0-100.0 MCH [Entitic mass] by Automated count 2023-07-06 19:13:02 29.7 pg F 25.9-34.2 MCHC [Mass/volume] by Automated count 2023-07-06 19:13:02 30.2 g/dL F 29.6-35.3 HCT CALC HGBX3 2023-06-08 03:29:21 21.3 % F 37.0-47.0 HCT CALC HGBX3 2023-06-08 03:29:21 21.3 % F 37.0-47.0 Hemoglobin [Mass/volume] in Blood 2023-06-08 03:28:23 7.1 g/dL F 12.0-16.0 Hemoglobin [Mass/volume] in Blood 2023-06-08 03:28:23 7.1 g/dL F 12.0-16.0 IRON SATURATION 2023-06-06 08:42:29 20 % F 16.0-46.0 TIBC 2023-06-06 08:42:29 256 ug/dL F 250.0-425.0 IRON SATURATION 2023-06-06 08:42:29 20 % F 16.0-46.0 TIBC 2023-06-06 08:42:29 256 ug/dL F 250.0-425.0 Iron [Mass/volume] in Serum or Plasma 2023-06-06 08:40:55 50 ug/dL F 50.0-170.0 Iron binding capacity.unsaturated [Mass/volume] in Serum or Plasma 2023-06-06 08:40:55 206 ug/dL F 80.0-375.0 Iron [Mass/volume] in Serum or Plasma 2023-06-06 08:40:55 50 ug/dL F 50.0-170.0 Iron binding capacity.unsaturated [Mass/volume] in Serum or Plasma 2023-06-06 08:40:55 206 ug/dL F 80.0-375.0 HCT CALC HGBX3 2023-06-06 05:30:06 22.2 % F 37.0-47.0 HCT CALC HGBX3 2023-06-06 05:30:06 22.2 % F 37.0-47.0 Erythrocyte distribution width [Ratio] by Automated count 2023-06-06 05:29:31 16.5 % F 11.0-15.0 Erythrocytes [#/volume] in Blood by Automated count 2023-06-06 05:29:31 2.34 x 10'6 cells/uL F 3.85-5.2 Hemoglobin [Mass/volume] in Blood 2023-06-06 05:29:31 7.4 g/dL F 12.0-16.0 MCV [Entitic volume] by Automated count 2023-06-06 05:29:31 98.5 fL F 80.0-100.0 Hematocrit [Volume Fraction] of Blood by Automated count 2023-06-06 05:29:31 23 % F 37.0-47.0 MCH [Entitic mass] by Automated count 2023-06-06 05:29:31 31.6 pg F 25.9-34.2 MCHC [Mass/volume] by Automated count 2023-06-06 05:29:31 32 g/dL F 29.6-35.3 Platelets [#/volume] in Blood by Automated count 2023-06-06 05:29:31 117 x 10^3 cells/uL F 140.0-450.0 Erythrocyte distribution width [Ratio] by Automated count 2023-06-06 05:29:31 16.5 % F 11.0-15.0 Hemoglobin [Mass/volume] in Blood 2023-06-06 05:29:31 7.4 g/dL F 12.0-16.0 Platelets [#/volume] in Blood by Automated count 2023-06-06 05:29:31 117 x 10^3 cells/uL F 140.0-450.0 MCH [Entitic mass] by Automated count 2023-06-06 05:29:31 31.6 pg F 25.9-34.2 MCHC [Mass/volume] by Automated count 2023-06-06 05:29:31 32 g/dL F 29.6-35.3 Hematocrit [Volume Fraction] of Blood by Automated count 2023-06-06 05:29:31 23 % F 37.0-47.0 Erythrocytes [#/volume] in Blood by Automated count 2023-06-06 05:29:31 2.34 x 10'6 cells/uL F 3.85-5.2 MCV [Entitic volume] by Automated count 2023-06-06 05:29:31 98.5 fL F 80.0-100.0 Ferritin [Mass/volume] in Serum or Plasma 2023-06-06 05:06:01 558 ng/mL F 10.0-291.0 Ferritin [Mass/volume] in Serum or Plasma 2023-06-06 05:06:01 558 ng/mL F 10.0-291.0 HCT CALC HGBX3 2023-05-03 15:35:28 32.4 % F 37.0-47.0 HCT CALC HGBX3 2023-05-03 15:35:28 32.4 % F 37.0-47.0 Erythrocyte distribution width [Ratio] by Automated count 2023-05-03 15:34:36 16.5 % F 11.0-15.0 Hemoglobin [Mass/volume] in Blood 2023-05-03 15:34:36 10.8 g/dL F 12.0-16.0 Platelets [#/volume] in Blood by Automated count 2023-05-03 15:34:36 113 x 10^3 cells/uL F 140.0-450.0 MCH [Entitic mass] by Automated count 2023-05-03 15:34:36 31.1 pg F 25.9-34.2 MCHC [Mass/volume] by Automated count 2023-05-03 15:34:36 31.4 g/dL F 29.6-35.3 Erythrocytes [#/volume] in Blood by Automated count 2023-05-03 15:34:36 3.47 x 10'6 cells/uL F 3.85-5.2 Hematocrit [Volume Fraction] of Blood by Automated count 2023-05-03 15:34:36 34.4 % F 37.0-47.0 MCV [Entitic volume] by Automated count 2023-05-03 15:34:36 99.1 fL F 80.0-100.0 Erythrocyte distribution width [Ratio] by Automated count 2023-05-03 15:34:36 16.5 % F 11.0-15.0 Hemoglobin [Mass/volume] in Blood 2023-05-03 15:34:36 10.8 g/dL F 12.0-16.0 Platelets [#/volume] in Blood by Automated count 2023-05-03 15:34:36 113 x 10^3 cells/uL F 140.0-450.0 MCH [Entitic mass] by Automated count 2023-05-03 15:34:36 31.1 pg F 25.9-34.2 MCHC [Mass/volume] by Automated count 2023-05-03 15:34:36 31.4 g/dL F 29.6-35.3 Erythrocytes [#/volume] in Blood by Automated count 2023-05-03 15:34:36 3.47 x 10'6 cells/uL F 3.85-5.2 Hematocrit [Volume Fraction] of Blood by Automated count 2023-05-03 15:34:36 34.4 % F 37.0-47.0 MCV [Entitic volume] by Automated count 2023-05-03 15:34:36 99.1 fL F 80.0-100.0 HCT CALC HGBX3 2023-04-04 02:33:47 26.1 % F 37.0-47.0 HCT CALC HGBX3 2023-04-04 02:33:47 26.1 % F 37.0-47.0 Erythrocyte distribution width [Ratio] by Automated count 2023-04-04 02:33:37 15.8 % F 11.0-15.0 Hemoglobin [Mass/volume] in Blood 2023-04-04 02:33:37 8.7 g/dL F 12.0-16.0 MCH [Entitic mass] by Automated count 2023-04-04 02:33:37 30.7 pg F 25.9-34.2 MCHC [Mass/volume] by Automated count 2023-04-04 02:33:37 32.2 g/dL F 29.6-35.3 Erythrocytes [#/volume] in Blood by Automated count 2023-04-04 02:33:37 2.83 x 10'6 cells/uL F 3.85-5.2 Hematocrit [Volume Fraction] of Blood by Automated count 2023-04-04 02:33:37 27 % F 37.0-47.0 MCV [Entitic volume] by Automated count 2023-04-04 02:33:37 95.3 fL F 80.0-100.0 Erythrocyte distribution width [Ratio] by Automated count 2023-04-04 02:33:37 15.8 % F 11.0-15.0 Hemoglobin [Mass/volume] in Blood 2023-04-04 02:33:37 8.7 g/dL F 12.0-16.0 MCH [Entitic mass] by Automated count 2023-04-04 02:33:37 30.7 pg F 25.9-34.2 MCHC [Mass/volume] by Automated count 2023-04-04 02:33:37 32.2 g/dL F 29.6-35.3 Hematocrit [Volume Fraction] of Blood by Automated count 2023-04-04 02:33:37 27 % F 37.0-47.0 Erythrocytes [#/volume] in Blood by Automated count 2023-04-04 02:33:37 2.83 x 10'6 cells/uL F 3.85-5.2 MCV [Entitic volume] by Automated count 2023-04-04 02:33:37 95.3 fL F 80.0-100.0 Platelets [#/volume] in Blood by Automated count 2023-04-04 02:33:34 126 x 10^3 cells/uL F 140.0-450.0 Platelets [#/volume] in Blood by Automated count 2023-04-04 02:33:34 126 x 10^3 cells/uL F 140.0-450.0 IRON SATURATION 2023-03-07 06:29:46 12 % F 16.0-46.0 TIBC 2023-03-07 06:29:46 223 ug/dL F 250.0-425.0 Iron [Mass/volume] in Serum or Plasma 2023-03-07 06:28:50 26 ug/dL F 50.0-170.0 Iron binding capacity.unsaturated [Mass/volume] in Serum or Plasma 2023-03-07 06:28:50 197 ug/dL F 80.0-375.0 Ferritin [Mass/volume] in Serum or Plasma 2023-03-07 05:10:46 578 ng/mL F 10.0-291.0 HCT CALC HGBX3 2023-03-06 18:43:32 33.6 % F 37.0-47.0 Erythrocyte distribution width [Ratio] by Automated count 2023-03-06 18:43:30 17.1 % F 11.0-15.0 Hemoglobin [Mass/volume] in Blood 2023-03-06 18:43:30 11.2 g/dL F 12.0-16.0 Platelets [#/volume] in Blood by Automated count 2023-03-06 18:43:30 97 x 10^3 cells/uL F 140.0-450.0 MCH [Entitic mass] by Automated count 2023-03-06 18:43:30 30.5 pg F 25.9-34.2 MCHC [Mass/volume] by Automated count 2023-03-06 18:43:30 30.7 g/dL F 29.6-35.3 Erythrocytes [#/volume] in Blood by Automated count 2023-03-06 18:43:30 3.66 x 10'6 cells/uL F 3.85-5.2 Hematocrit [Volume Fraction] of Blood by Automated count 2023-03-06 18:43:30 36.3 % F 37.0-47.0 MCV [Entitic volume] by Automated count 2023-03-06 18:43:30 99.2 fL F 80.0-100.0 HCT CALC HGBX3 2023-01-30 19:02:08 33 % F 37.0-47.0 HCT CALC HGBX3 2023-01-30 19:02:08 33 % F 37.0-47.0 Erythrocyte distribution width [Ratio] by Automated count 2023-01-30 19:01:24 16.1 % F 11.0-15.0 MCH [Entitic mass] by Automated count 2023-01-30 19:01:24 31.1 pg F 25.9-34.2 MCHC [Mass/volume] by Automated count 2023-01-30 19:01:24 32.4 g/dL F 29.6-35.3 Erythrocyte distribution width [Ratio] by Automated count 2023-01-30 19:01:24 16.1 % F 11.0-15.0 MCH [Entitic mass] by Automated count 2023-01-30 19:01:24 31.1 pg F 25.9-34.2 MCHC [Mass/volume] by Automated count 2023-01-30 19:01:24 32.4 g/dL F 29.6-35.3 Hemoglobin [Mass/volume] in Blood 2023-01-30 19:01:22 11 g/dL F 12.0-16.0 Hematocrit [Volume Fraction] of Blood by Automated count 2023-01-30 19:01:22 34.1 % F 37.0-47.0 MCV [Entitic volume] by Automated count 2023-01-30 19:01:22 96 fL F 80.0-100.0 Hemoglobin [Mass/volume] in Blood 2023-01-30 19:01:22 11 g/dL F 12.0-16.0 Hematocrit [Volume Fraction] of Blood by Automated count 2023-01-30 19:01:22 34.1 % F 37.0-47.0 MCV [Entitic volume] by Automated count 2023-01-30 19:01:22 96 fL F 80.0-100.0 Platelets [#/volume] in Blood by Automated count 2023-01-30 19:01:21 121 x 10^3 cells/uL F 140.0-450.0 Erythrocytes [#/volume] in Blood by Automated count 2023-01-30 19:01:21 3.55 x 10'6 cells/uL F 3.85-5.2 Platelets [#/volume] in Blood by Automated count 2023-01-30 19:01:21 121 x 10^3 cells/uL F 140.0-450.0 Erythrocytes [#/volume] in Blood by Automated count 2023-01-30 19:01:21 3.55 x 10'6 cells/uL F 3.85-5.2 HCT CALC HGBX3 2023-01-02 16:42:03 26.4 % F 37.0-47.0 Platelets [#/volume] in Blood by Automated count 2023-01-02 16:41:13 155 x 10^3 cells/uL F 140.0-450.0 Hemoglobin [Mass/volume] in Blood 2023-01-02 16:41:12 8.8 g/dL F 12.0-16.0 Erythrocyte distribution width [Ratio] by Automated count 2023-01-02 16:41:12 18.8 % F 11.0-15.0 MCH [Entitic mass] by Automated count 2023-01-02 16:41:12 30.8 pg F 25.9-34.2 MCHC [Mass/volume] by Automated count 2023-01-02 16:41:12 31.2 g/dL F 29.6-35.3 Hematocrit [Volume Fraction] of Blood by Automated count 2023-01-02 16:41:12 28 % F 37.0-47.0 Erythrocytes [#/volume] in Blood by Automated count 2023-01-02 16:41:12 2.85 x 10'6 cells/uL F 3.85-5.2 MCV [Entitic volume] by Automated count 2023-01-02 16:41:12 98.5 fL F 80.0-100.0 IRON SATURATION 2022-11-29 06:24:47 14 % F 16.0-46.0 TIBC 2022-11-29 06:24:47 232 ug/dL F 250.0-425.0 IRON SATURATION 2022-11-29 06:24:47 14 % F 16.0-46.0 TIBC 2022-11-29 06:24:47 232 ug/dL F 250.0-425.0 Iron [Mass/volume] in Serum or Plasma 2022-11-29 06:20:01 32 ug/dL F 50.0-170.0 Iron binding capacity.unsaturated [Mass/volume] in Serum or Plasma 2022-11-29 06:20:01 200 ug/dL F 80.0-375.0 Iron [Mass/volume] in Serum or Plasma 2022-11-29 06:20:01 32 ug/dL F 50.0-170.0 Iron binding capacity.unsaturated [Mass/volume] in Serum or Plasma 2022-11-29 06:20:01 200 ug/dL F 80.0-375.0 Ferritin [Mass/volume] in Serum or Plasma 2022-11-28 23:02:16 699 ng/mL F 10.0-291.0 Ferritin [Mass/volume] in Serum or Plasma 2022-11-28 23:02:16 699 ng/mL F 10.0-291.0 HCT CALC HGBX3 2022-11-28 20:54:39 32.7 % F 37.0-47.0 HCT CALC HGBX3 2022-11-28 20:54:39 32.7 % F 37.0-47.0 Erythrocyte distribution width [Ratio] by Automated count 2022-11-28 20:54:12 14.4 % F 11.0-15.0 Platelets [#/volume] in Blood by Automated count 2022-11-28 20:54:12 107 x 10^3 cells/uL F 150.0-400.0 MCHC [Mass/volume] by Automated count 2022-11-28 20:54:12 30.8 g/dL F 32.0-36.0 MCH [Entitic mass] by Automated count 2022-11-28 20:54:12 31.8 pg F 27.0-31.0 Erythrocyte distribution width [Ratio] by Automated count 2022-11-28 20:54:12 14.4 % F 11.0-15.0 MCH [Entitic mass] by Automated count 2022-11-28 20:54:12 31.8 pg F 27.0-31.0 Platelets [#/volume] in Blood by Automated count 2022-11-28 20:54:12 107 x 10^3 cells/uL F 150.0-400.0 MCHC [Mass/volume] by Automated count 2022-11-28 20:54:12 30.8 g/dL F 32.0-36.0 Hemoglobin [Mass/volume] in Blood 2022-11-28 20:54:10 10.9 g/dL F 12.0-16.0 Hematocrit [Volume Fraction] of Blood by Automated count 2022-11-28 20:54:10 35.5 % F 37.0-47.0 Erythrocytes [#/volume] in Blood by Automated count 2022-11-28 20:54:10 3.44 x 10'6 cells/uL F 4.2-5.4 MCV [Entitic volume] by Automated count 2022-11-28 20:54:10 103.2 fL F 80.0-100.0 Hemoglobin [Mass/volume] in Blood 2022-11-28 20:54:10 10.9 g/dL F 12.0-16.0 Hematocrit [Volume Fraction] of Blood by Automated count 2022-11-28 20:54:10 35.5 % F 37.0-47.0 Erythrocytes [#/volume] in Blood by Automated count 2022-11-28 20:54:10 3.44 x 10'6 cells/uL F 4.2-5.4 MCV [Entitic volume] by Automated count 2022-11-28 20:54:10 103.2 fL F 80.0-100.0 IRON SATURATION 2022-10-11 07:47:24 15 % F 16.0-46.0 TIBC 2022-10-11 07:47:24 246 ug/dL F 250.0-425.0 IRON SATURATION 2022-10-11 07:47:24 15 % F 16.0-46.0 TIBC 2022-10-11 07:47:24 246 ug/dL F 250.0-425.0 IRON SATURATION 2022-10-11 07:47:24 15 % F 16.0-46.0 TIBC 2022-10-11 07:47:24 246 ug/dL F 250.0-425.0 Iron binding capacity.unsaturated [Mass/volume] in Serum or Plasma 2022-10-11 07:41:41 208 ug/dL F 80.0-375.0 Iron binding capacity.unsaturated [Mass/volume] in Serum or Plasma 2022-10-11 07:41:41 208 ug/dL F 80.0-375.0 Iron binding capacity.unsaturated [Mass/volume] in Serum or Plasma 2022-10-11 07:41:41 208 ug/dL F 80.0-375.0 HCT CALC HGBX3 2022-10-11 07:09:04 30 % F 37.0-47.0 HCT CALC HGBX3 2022-10-11 07:09:04 30 % F 37.0-47.0 HCT CALC HGBX3 2022-10-11 07:09:04 30 % F 37.0-47.0 Reticulocytes/100 erythrocytes in Blood by Automated count 2022-10-11 07:08:10 2.48 % F 0.8-2.1 Hemoglobin [Mass/volume] in Blood 2022-10-11 07:08:10 10 g/dL F 12.0-16.0 Erythrocyte distribution width [Ratio] by Automated count 2022-10-11 07:08:10 15.1 % F 11.0-15.0 Platelets [#/volume] in Blood by Automated count 2022-10-11 07:08:10 115 x 10^3 cells/uL F 150.0-400.0 MCH [Entitic mass] by Automated count 2022-10-11 07:08:10 32.2 pg F 27.0-31.0 MCHC [Mass/volume] by Automated count 2022-10-11 07:08:10 30.5 g/dL F 32.0-36.0 Hematocrit [Volume Fraction] of Blood by Automated count 2022-10-11 07:08:10 32.6 % F 37.0-47.0 Erythrocytes [#/volume] in Blood by Automated count 2022-10-11 07:08:10 3.09 x 10'6 cells/uL F 4.2-5.4 MCV [Entitic volume] by Automated count 2022-10-11 07:08:10 105.7 fL F 80.0-100.0 Reticulocytes/100 erythrocytes in Blood by Automated count 2022-10-11 07:08:10 2.48 % F 0.8-2.1 Erythrocyte distribution width [Ratio] by Automated count 2022-10-11 07:08:10 15.1 % F 11.0-15.0 Hemoglobin [Mass/volume] in Blood 2022-10-11 07:08:10 10 g/dL F 12.0-16.0 Platelets [#/volume] in Blood by Automated count 2022-10-11 07:08:10 115 x 10^3 cells/uL F 150.0-400.0 MCH [Entitic mass] by Automated count 2022-10-11 07:08:10 32.2 pg F 27.0-31.0 MCHC [Mass/volume] by Automated count 2022-10-11 07:08:10 30.5 g/dL F 32.0-36.0 Hematocrit [Volume Fraction] of Blood by Automated count 2022-10-11 07:08:10 32.6 % F 37.0-47.0 Erythrocytes [#/volume] in Blood by Automated count 2022-10-11 07:08:10 3.09 x 10'6 cells/uL F 4.2-5.4 MCV [Entitic volume] by Automated count 2022-10-11 07:08:10 105.7 fL F 80.0-100.0 Erythrocyte distribution width [Ratio] by Automated count 2022-10-11 07:08:10 15.1 % F 11.0-15.0 Erythrocytes [#/volume] in Blood by Automated count 2022-10-11 07:08:10 3.09 x 10'6 cells/uL F 4.2-5.4 Hematocrit [Volume Fraction] of Blood by Automated count 2022-10-11 07:08:10 32.6 % F 37.0-47.0 Hemoglobin [Mass/volume] in Blood 2022-10-11 07:08:10 10 g/dL F 12.0-16.0 MCV [Entitic volume] by Automated count 2022-10-11 07:08:10 105.7 fL F 80.0-100.0 MCH [Entitic mass] by Automated count 2022-10-11 07:08:10 32.2 pg F 27.0-31.0 MCHC [Mass/volume] by Automated count 2022-10-11 07:08:10 30.5 g/dL F 32.0-36.0 Platelets [#/volume] in Blood by Automated count 2022-10-11 07:08:10 115 x 10^3 cells/uL F 150.0-400.0 Reticulocytes/100 erythrocytes in Blood by Automated count 2022-10-11 07:08:10 2.48 % F 0.8-2.1 Iron [Mass/volume] in Serum or Plasma 2022-10-11 06:06:37 38 ug/dL F 50.0-170.0 Iron [Mass/volume] in Serum or Plasma 2022-10-11 06:06:37 38 ug/dL F 50.0-170.0 Iron [Mass/volume] in Serum or Plasma 2022-10-11 06:06:37 38 ug/dL F 50.0-170.0 Ferritin [Mass/volume] in Serum or Plasma 2022-10-11 05:02:26 611 ng/mL F 10.0-291.0 Ferritin [Mass/volume] in Serum or Plasma 2022-10-11 05:02:26 611 ng/mL F 10.0-291.0 Ferritin [Mass/volume] in Serum or Plasma 2022-10-11 05:02:26 611 ng/mL F 10.0-291.0 HCT CALC HGBX3 2022-09-28 19:36:00 30.9 % F 37.0-47.0 Erythrocyte distribution width [Ratio] by Automated count 2022-09-28 19:35:21 15 % F 11.0-15.0 Hemoglobin [Mass/volume] in Blood 2022-09-28 19:35:21 10.3 g/dL F 12.0-16.0 Platelets [#/volume] in Blood by Automated count 2022-09-28 19:35:21 125 x 10^3 cells/uL F 150.0-400.0 MCH [Entitic mass] by Automated count 2022-09-28 19:35:21 32.7 pg F 27.0-31.0 MCHC [Mass/volume] by Automated count 2022-09-28 19:35:21 32.1 g/dL F 32.0-36.0 Hematocrit [Volume Fraction] of Blood by Automated count 2022-09-28 19:35:21 31.9 % F 37.0-47.0 Erythrocytes [#/volume] in Blood by Automated count 2022-09-28 19:35:21 3.14 x 10'6 cells/uL F 4.2-5.4 MCV [Entitic volume] by Automated count 2022-09-28 19:35:21 101.6 fL F 80.0-100.0 IRON SATURATION 2022-09-01 06:31:09 24 % F 16.0-46.0 TIBC 2022-09-01 06:31:09 240 ug/dL F 250.0-425.0 IRON SATURATION 2022-09-01 06:31:09 24 % F 16.0-46.0 TIBC 2022-09-01 06:31:09 240 ug/dL F 250.0-425.0 Iron binding capacity.unsaturated [Mass/volume] in Serum or Plasma 2022-09-01 06:30:20 182 ug/dL F 80.0-375.0 Iron binding capacity.unsaturated [Mass/volume] in Serum or Plasma 2022-09-01 06:30:20 182 ug/dL F 80.0-375.0 Iron [Mass/volume] in Serum or Plasma 2022-08-31 17:00:13 58 ug/dL F 50.0-170.0 Iron [Mass/volume] in Serum or Plasma 2022-08-31 17:00:13 58 ug/dL F 50.0-170.0 Ferritin [Mass/volume] in Serum or Plasma 2022-08-31 16:31:57 561 ng/mL F 10.0-291.0 Ferritin [Mass/volume] in Serum or Plasma 2022-08-31 16:31:57 561 ng/mL F 10.0-291.0 HCT CALC HGBX3 2022-08-31 16:06:50 33 % F 37.0-47.0 HCT CALC HGBX3 2022-08-31 16:06:50 33 % F 37.0-47.0 Erythrocyte distribution width [Ratio] by Automated count 2022-08-31 16:06:00 15 % F 11.0-15.0 Hemoglobin [Mass/volume] in Blood 2022-08-31 16:06:00 11 g/dL F 12.0-16.0 Platelets [#/volume] in Blood by Automated count 2022-08-31 16:06:00 94 x 10^3 cells/uL F 150.0-400.0 MCH [Entitic mass] by Automated count 2022-08-31 16:06:00 32.2 pg F 27.0-31.0 MCHC [Mass/volume] by Automated count 2022-08-31 16:06:00 31 g/dL F 32.0-36.0 Hematocrit [Volume Fraction] of Blood by Automated count 2022-08-31 16:06:00 35.5 % F 37.0-47.0 Erythrocytes [#/volume] in Blood by Automated count 2022-08-31 16:06:00 3.41 x 10'6 cells/uL F 4.2-5.4 MCV [Entitic volume] by Automated count 2022-08-31 16:06:00 104 fL F 80.0-100.0 Erythrocyte distribution width [Ratio] by Automated count 2022-08-31 16:06:00 15 % F 11.0-15.0 Hemoglobin [Mass/volume] in Blood 2022-08-31 16:06:00 11 g/dL F 12.0-16.0 Platelets [#/volume] in Blood by Automated count 2022-08-31 16:06:00 94 x 10^3 cells/uL F 150.0-400.0 MCH [Entitic mass] by Automated count 2022-08-31 16:06:00 32.2 pg F 27.0-31.0 Hematocrit [Volume Fraction] of Blood by Automated count 2022-08-31 16:06:00 35.5 % F 37.0-47.0 Erythrocytes [#/volume] in Blood by Automated count 2022-08-31 16:06:00 3.41 x 10'6 cells/uL F 4.2-5.4 MCHC [Mass/volume] by Automated count 2022-08-31 16:06:00 31 g/dL F 32.0-36.0 MCV [Entitic volume] by Automated count 2022-08-31 16:06:00 104 fL F 80.0-100.0 HCT CALC HGBX3 2022-07-27 16:22:13 33.6 % F 37.0-47.0 HCT CALC HGBX3 2022-07-27 16:22:13 33.6 % F 37.0-47.0 HCT CALC HGBX3 2022-07-27 16:22:13 33.6 % F 37.0-47.0 Erythrocyte distribution width [Ratio] by Automated count 2022-07-27 16:21:45 14.9 % F 11.0-15.0 Hemoglobin [Mass/volume] in Blood 2022-07-27 16:21:45 11.2 g/dL F 12.0-16.0 Platelets [#/volume] in Blood by Automated count 2022-07-27 16:21:45 137 x 10^3 cells/uL F 150.0-400.0 MCH [Entitic mass] by Automated count 2022-07-27 16:21:45 32.2 pg F 27.0-31.0 MCHC [Mass/volume] by Automated count 2022-07-27 16:21:45 32 g/dL F 32.0-36.0 Hematocrit [Volume Fraction] of Blood by Automated count 2022-07-27 16:21:45 34.9 % F 37.0-47.0 Erythrocytes [#/volume] in Blood by Automated count 2022-07-27 16:21:45 3.46 x 10'6 cells/uL F 4.2-5.4 MCV [Entitic volume] by Automated count 2022-07-27 16:21:45 100.8 fL F 80.0-100.0 Erythrocyte distribution width [Ratio] by Automated count 2022-07-27 16:21:45 14.9 % F 11.0-15.0 Erythrocytes [#/volume] in Blood by Automated count 2022-07-27 16:21:45 3.46 x 10'6 cells/uL F 4.2-5.4 Hematocrit [Volume Fraction] of Blood by Automated count 2022-07-27 16:21:45 34.9 % F 37.0-47.0 Hemoglobin [Mass/volume] in Blood 2022-07-27 16:21:45 11.2 g/dL F 12.0-16.0 Platelets [#/volume] in Blood by Automated count 2022-07-27 16:21:45 137 x 10^3 cells/uL F 150.0-400.0 MCH [Entitic mass] by Automated count 2022-07-27 16:21:45 32.2 pg F 27.0-31.0 MCV [Entitic volume] by Automated count 2022-07-27 16:21:45 100.8 fL F 80.0-100.0 MCHC [Mass/volume] by Automated count 2022-07-27 16:21:45 32 g/dL F 32.0-36.0 Erythrocyte distribution width [Ratio] by Automated count 2022-07-27 16:21:45 14.9 % F 11.0-15.0 Erythrocytes [#/volume] in Blood by Automated count 2022-07-27 16:21:45 3.46 x 10'6 cells/uL F 4.2-5.4 Hemoglobin [Mass/volume] in Blood 2022-07-27 16:21:45 11.2 g/dL F 12.0-16.0 Hematocrit [Volume Fraction] of Blood by Automated count 2022-07-27 16:21:45 34.9 % F 37.0-47.0 MCV [Entitic volume] by Automated count 2022-07-27 16:21:45 100.8 fL F 80.0-100.0 MCH [Entitic mass] by Automated count 2022-07-27 16:21:45 32.2 pg F 27.0-31.0 MCHC [Mass/volume] by Automated count 2022-07-27 16:21:45 32 g/dL F 32.0-36.0 Platelets [#/volume] in Blood by Automated count 2022-07-27 16:21:45 137 x 10^3 cells/uL F 150.0-400.0 HCT CALC HGBX3 2022-06-29 17:23:27 31.5 % F 37.0-47.0 HCT CALC HGBX3 2022-06-29 17:23:27 31.5 % F 37.0-47.0 Erythrocyte distribution width [Ratio] by Automated count 2022-06-29 17:22:46 14.9 % F 11.0-15.0 Hemoglobin [Mass/volume] in Blood 2022-06-29 17:22:46 10.5 g/dL F 12.0-16.0 Platelets [#/volume] in Blood by Automated count 2022-06-29 17:22:46 117 x 10^3 cells/uL F 150.0-400.0 MCH [Entitic mass] by Automated count 2022-06-29 17:22:46 32.7 pg F 27.0-31.0 MCHC [Mass/volume] by Automated count 2022-06-29 17:22:46 32.1 g/dL F 32.0-36.0 Hematocrit [Volume Fraction] of Blood by Automated count 2022-06-29 17:22:46 32.6 % F 37.0-47.0 Erythrocytes [#/volume] in Blood by Automated count 2022-06-29 17:22:46 3.21 x 10'6 cells/uL F 4.2-5.4 MCV [Entitic volume] by Automated count 2022-06-29 17:22:46 101.7 fL F 80.0-100.0 Erythrocytes [#/volume] in Blood by Automated count 2022-06-29 17:22:46 3.21 x 10'6 cells/uL F 4.2-5.4 Hematocrit [Volume Fraction] of Blood by Automated count 2022-06-29 17:22:46 32.6 % F 37.0-47.0 Erythrocyte distribution width [Ratio] by Automated count 2022-06-29 17:22:46 14.9 % F 11.0-15.0 Hemoglobin [Mass/volume] in Blood 2022-06-29 17:22:46 10.5 g/dL F 12.0-16.0 MCV [Entitic volume] by Automated count 2022-06-29 17:22:46 101.7 fL F 80.0-100.0 MCH [Entitic mass] by Automated count 2022-06-29 17:22:46 32.7 pg F 27.0-31.0 Platelets [#/volume] in Blood by Automated count 2022-06-29 17:22:46 117 x 10^3 cells/uL F 150.0-400.0 MCHC [Mass/volume] by Automated count 2022-06-29 17:22:46 32.1 g/dL F 32.0-36.0 Hematocrit [Volume Fraction] of Blood by Automated count Hemoglobin [Mass/volume] in Blood Hemoglobin [Mass/volume] in Blood Comorbidities Description Draw Date Result/Unit Status Ref Range Result Comments Hemoglobin A1c/Hemoglobin.total in Blood 2024-11-11 17:21:12 6.8 %A1c F 0.0-5.6 Hemoglobin A1c/Hemoglobin.total in Blood 2024-11-11 17:21:12 6.8 %A1c F 0.0-5.6 Hemoglobin A1c/Hemoglobin.total in Blood 2024-11-11 17:21:12 6.8 %A1c F 0.0-5.6 Hemoglobin A1c/Hemoglobin.total in Blood 2022-06-21 01:17:12 7.4 %A1c F 0.0-5.6 FluidBP Description Draw Date Result/Unit Status Ref Range Result Comments Sodium [Moles/volume] in Serum or Plasma 2025-03-04 03:06:50 136 mEq/L F 136.0-145.0 Sodium [Moles/volume] in Serum or Plasma 2025-03-04 03:06:50 136 mEq/L F 136.0-145.0 Sodium [Moles/volume] in Serum or Plasma 2025-02-04 07:13:58 137 mEq/L F 136.0-145.0 Sodium [Moles/volume] in Serum or Plasma 2025-02-04 07:13:58 137 mEq/L F 136.0-145.0 Sodium [Moles/volume] in Serum or Plasma 2025-02-04 07:13:58 137 mEq/L F 136.0-145.0 Sodium [Moles/volume] in Serum or Plasma 2024-12-31 04:06:03 139 mEq/L F 136.0-145.0 Sodium [Moles/volume] in Serum or Plasma 2024-12-31 04:06:03 139 mEq/L F 136.0-145.0 Sodium [Moles/volume] in Serum or Plasma 2024-12-31 04:06:03 139 mEq/L F 136.0-145.0 Sodium [Moles/volume] in Serum or Plasma 2024-12-31 04:06:03 139 mEq/L F 136.0-145.0 Sodium [Moles/volume] in Serum or Plasma 2024-11-26 18:09:30 133 mEq/L F 132.0-146.0 Sodium [Moles/volume] in Serum or Plasma 2024-11-26 18:09:30 133 mEq/L F 132.0-146.0 Sodium [Moles/volume] in Serum or Plasma 2024-11-26 18:09:30 133 mEq/L F 132.0-146.0 Sodium [Moles/volume] in Serum or Plasma 2024-11-11 20:31:54 135 mEq/L F 132.0-146.0 Sodium [Moles/volume] in Serum or Plasma 2024-11-11 20:31:54 135 mEq/L F 132.0-146.0 Sodium [Moles/volume] in Serum or Plasma 2024-11-11 20:31:54 135 mEq/L F 132.0-146.0 Sodium [Moles/volume] in Serum or Plasma 2024-09-19 07:15:09 135 mEq/L F 132.0-146.0 Sodium [Moles/volume] in Serum or Plasma 2024-09-19 07:15:09 135 mEq/L F 132.0-146.0 Sodium [Moles/volume] in Serum or Plasma 2024-09-19 07:15:09 135 mEq/L F 132.0-146.0 Sodium [Moles/volume] in Serum or Plasma 2024-08-23 04:16:44 135 mEq/L F 132.0-146.0 Sodium [Moles/volume] in Serum or Plasma 2024-06-08 02:36:57 135 mEq/L F 132.0-146.0 Sodium [Moles/volume] in Serum or Plasma 2024-06-08 02:36:57 135 mEq/L F 132.0-146.0 Sodium [Moles/volume] in Serum or Plasma 2024-06-08 02:36:57 135 mEq/L F 132.0-146.0 Sodium [Moles/volume] in Serum or Plasma 2024-06-04 07:45:41 137 mEq/L F 132.0-146.0 Sodium [Moles/volume] in Serum or Plasma 2024-06-04 07:45:41 137 mEq/L F 132.0-146.0 Sodium [Moles/volume] in Serum or Plasma 2024-05-06 15:58:43 134 mEq/L F 132.0-146.0 Sodium [Moles/volume] in Serum or Plasma 2024-04-02 06:22:05 135 mEq/L F 132.0-146.0 Sodium [Moles/volume] in Serum or Plasma 2024-04-02 06:22:05 135 mEq/L F 132.0-146.0 Sodium [Moles/volume] in Serum or Plasma 2024-03-05 07:04:56 133 mEq/L F 132.0-146.0 Sodium [Moles/volume] in Serum or Plasma 2024-03-05 07:04:56 133 mEq/L F 132.0-146.0 Sodium [Moles/volume] in Serum or Plasma 2024-01-30 07:28:53 132 mEq/L F 132.0-146.0 Sodium [Moles/volume] in Serum or Plasma 2024-01-30 07:28:53 132 mEq/L F 132.0-146.0 Sodium [Moles/volume] in Serum or Plasma 2024-01-02 06:46:34 131 mEq/L F 132.0-146.0 Sodium [Moles/volume] in Serum or Plasma 2024-01-02 06:46:34 131 mEq/L F 132.0-146.0 Sodium [Moles/volume] in Serum or Plasma 2023-12-06 15:53:30 132 mEq/L F 132.0-146.0 Sodium [Moles/volume] in Serum or Plasma 2023-12-06 15:53:30 132 mEq/L F 132.0-146.0 Sodium [Moles/volume] in Serum or Plasma 2023-12-06 15:53:30 132 mEq/L F 132.0-146.0 Sodium [Moles/volume] in Serum or Plasma 2023-10-31 06:49:18 131 mEq/L F 132.0-146.0 Sodium [Moles/volume] in Serum or Plasma 2023-10-03 05:25:15 133 mEq/L F 132.0-146.0 Sodium [Moles/volume] in Serum or Plasma 2023-10-03 05:25:15 133 mEq/L F 132.0-146.0 Sodium [Moles/volume] in Serum or Plasma 2023-10-03 05:25:15 133 mEq/L F 132.0-146.0 Sodium [Moles/volume] in Serum or Plasma 2023-09-05 06:15:28 133 mEq/L F 132.0-146.0 Sodium [Moles/volume] in Serum or Plasma 2023-09-05 06:15:28 133 mEq/L F 132.0-146.0 Sodium [Moles/volume] in Serum or Plasma 2023-09-05 06:15:28 133 mEq/L F 132.0-146.0 Sodium [Moles/volume] in Serum or Plasma 2023-08-03 04:11:42 133 mEq/L F 132.0-146.0 Sodium [Moles/volume] in Serum or Plasma 2023-08-03 04:11:42 133 mEq/L F 132.0-146.0 Sodium [Moles/volume] in Serum or Plasma 2023-08-03 04:11:42 133 mEq/L F 132.0-146.0 Sodium [Moles/volume] in Serum or Plasma 2023-07-06 07:19:25 131 mEq/L F 132.0-146.0 Sodium [Moles/volume] in Serum or Plasma 2023-07-06 07:19:25 131 mEq/L F 132.0-146.0 Sodium [Moles/volume] in Serum or Plasma 2023-07-06 07:19:25 131 mEq/L F 132.0-146.0 Sodium [Moles/volume] in Serum or Plasma 2023-06-05 21:47:29 131 mEq/L F 132.0-146.0 Sodium [Moles/volume] in Serum or Plasma 2023-06-05 21:47:29 131 mEq/L F 132.0-146.0 Sodium [Moles/volume] in Serum or Plasma 2023-05-03 17:43:30 133 mEq/L F 132.0-146.0 Sodium [Moles/volume] in Serum or Plasma 2023-05-03 17:43:30 133 mEq/L F 132.0-146.0 Sodium [Moles/volume] in Serum or Plasma 2023-04-03 23:38:34 134 mEq/L F 132.0-146.0 Sodium [Moles/volume] in Serum or Plasma 2023-04-03 23:38:34 134 mEq/L F 132.0-146.0 Sodium [Moles/volume] in Serum or Plasma 2023-03-06 19:55:32 135 mEq/L F 132.0-146.0 Sodium [Moles/volume] in Serum or Plasma 2023-01-30 23:47:23 137 mEq/L F 132.0-146.0 Sodium [Moles/volume] in Serum or Plasma 2023-01-30 23:47:23 137 mEq/L F 132.0-146.0 Sodium [Moles/volume] in Serum or Plasma 2023-01-02 23:19:18 140 mEq/L F 132.0-146.0 Sodium [Moles/volume] in Serum or Plasma 2022-11-28 21:58:23 135 mEq/L F 132.0-146.0 Sodium [Moles/volume] in Serum or Plasma 2022-11-28 21:58:23 135 mEq/L F 132.0-146.0 Sodium [Moles/volume] in Serum or Plasma 2022-10-11 05:32:19 133 mEq/L F 132.0-146.0 Sodium [Moles/volume] in Serum or Plasma 2022-10-11 05:32:19 133 mEq/L F 132.0-146.0 Sodium [Moles/volume] in Serum or Plasma 2022-10-11 05:32:19 133 mEq/L F 132.0-146.0 Sodium [Moles/volume] in Serum or Plasma 2022-09-28 20:10:21 135 mEq/L F 132.0-146.0 Sodium [Moles/volume] in Serum or Plasma 2022-08-31 13:53:59 136 mEq/L F 132.0-146.0 Sodium [Moles/volume] in Serum or Plasma 2022-08-31 13:53:59 136 mEq/L F 132.0-146.0 Sodium [Moles/volume] in Serum or Plasma 2022-07-27 16:54:50 132 mEq/L F 132.0-146.0 Sodium [Moles/volume] in Serum or Plasma 2022-07-27 16:54:50 132 mEq/L F 132.0-146.0 Sodium [Moles/volume] in Serum or Plasma 2022-07-27 16:54:50 132 mEq/L F 132.0-146.0 Sodium [Moles/volume] in Serum or Plasma 2022-06-29 14:39:43 137 mEq/L F 132.0-146.0 Sodium [Moles/volume] in Serum or Plasma 2022-06-29 14:39:43 137 mEq/L F 132.0-146.0 General Description Draw Date Result/Unit Status Ref Range Result Comments Chloride [Moles/volume] in Serum or Plasma 2025-03-04 03:06:50 95 mEq/L F 98.0-107.0 Chloride [Moles/volume] in Serum or Plasma 2025-03-04 03:06:50 95 mEq/L F 98.0-107.0 Alanine aminotransferase [Enzymatic activity/volume] in Serum or Plasma 2025-03-03 14:33:16 15 U/L F 10.0-49.0 Aspartate aminotransferase [Enzymatic activity/volume] in Serum or Plasma 2025-03-03 14:33:16 28 U/L F 0.0-33.0 Aspartate aminotransferase [Enzymatic activity/volume] in Serum or Plasma 2025-03-03 14:33:16 28 U/L F 0.0-33.0 Alanine aminotransferase [Enzymatic activity/volume] in Serum or Plasma 2025-03-03 14:33:16 15 U/L F 10.0-49.0 Chloride [Moles/volume] in Serum or Plasma 2025-02-04 07:13:58 96 mEq/L F 98.0-107.0 Chloride [Moles/volume] in Serum or Plasma 2025-02-04 07:13:58 96 mEq/L F 98.0-107.0 Chloride [Moles/volume] in Serum or Plasma 2025-02-04 07:13:58 96 mEq/L F 98.0-107.0 Aspartate aminotransferase [Enzymatic activity/volume] in Serum or Plasma 2025-02-03 23:58:24 28 U/L F 0.0-33.0 Alanine aminotransferase [Enzymatic activity/volume] in Serum or Plasma 2025-02-03 23:58:24 21 U/L F 10.0-49.0 Alanine aminotransferase [Enzymatic activity/volume] in Serum or Plasma 2025-02-03 23:58:24 21 U/L F 10.0-49.0 Aspartate aminotransferase [Enzymatic activity/volume] in Serum or Plasma 2025-02-03 23:58:24 28 U/L F 0.0-33.0 Aspartate aminotransferase [Enzymatic activity/volume] in Serum or Plasma 2025-02-03 23:58:24 28 U/L F 0.0-33.0 Alanine aminotransferase [Enzymatic activity/volume] in Serum or Plasma 2025-02-03 23:58:24 21 U/L F 10.0-49.0 Chloride [Moles/volume] in Serum or Plasma 2024-12-31 04:06:03 96 mEq/L F 98.0-107.0 Chloride [Moles/volume] in Serum or Plasma 2024-12-31 04:06:03 96 mEq/L F 98.0-107.0 Chloride [Moles/volume] in Serum or Plasma 2024-12-31 04:06:03 96 mEq/L F 98.0-107.0 Chloride [Moles/volume] in Serum or Plasma 2024-12-31 04:06:03 96 mEq/L F 98.0-107.0 Alanine aminotransferase [Enzymatic activity/volume] in Serum or Plasma 2024-12-31 02:33:13 20 U/L F 10.0-49.0 Aspartate aminotransferase [Enzymatic activity/volume] in Serum or Plasma 2024-12-31 02:33:13 30 U/L F 0.0-33.0 Aspartate aminotransferase [Enzymatic activity/volume] in Serum or Plasma 2024-12-31 02:33:13 30 U/L F 0.0-33.0 Alanine aminotransferase [Enzymatic activity/volume] in Serum or Plasma 2024-12-31 02:33:13 20 U/L F 10.0-49.0 Aspartate aminotransferase [Enzymatic activity/volume] in Serum or Plasma 2024-12-31 02:33:13 30 U/L F 0.0-33.0 Alanine aminotransferase [Enzymatic activity/volume] in Serum or Plasma 2024-12-31 02:33:13 20 U/L F 10.0-49.0 Alanine aminotransferase [Enzymatic activity/volume] in Serum or Plasma 2024-12-31 02:33:13 20 U/L F 10.0-49.0 Aspartate aminotransferase [Enzymatic activity/volume] in Serum or Plasma 2024-12-31 02:33:13 30 U/L F 0.0-33.0 Aluminum [Mass/volume] in Serum or Plasma 2024-11-26 18:15:02 10 ug/L F 0.0-9.0 Aluminum [Mass/volume] in Serum or Plasma 2024-11-26 18:15:02 10 ug/L F 0.0-9.0 Aluminum [Mass/volume] in Serum or Plasma 2024-11-26 18:15:02 10 ug/L F 0.0-9.0 Chloride [Moles/volume] in Serum or Plasma 2024-11-26 18:09:30 95 mEq/L F 99.0-109.0 Chloride [Moles/volume] in Serum or Plasma 2024-11-26 18:09:30 95 mEq/L F 99.0-109.0 Chloride [Moles/volume] in Serum or Plasma 2024-11-26 18:09:30 95 mEq/L F 99.0-109.0 Alanine aminotransferase [Enzymatic activity/volume] in Serum or Plasma 2024-11-26 15:55:15 13 U/L F 10.0-49.0 Aspartate aminotransferase [Enzymatic activity/volume] in Serum or Plasma 2024-11-26 15:55:15 29 U/L F 0.0-33.0 Alanine aminotransferase [Enzymatic activity/volume] in Serum or Plasma 2024-11-26 15:55:15 13 U/L F 10.0-49.0 Aspartate aminotransferase [Enzymatic activity/volume] in Serum or Plasma 2024-11-26 15:55:15 29 U/L F 0.0-33.0 Aspartate aminotransferase [Enzymatic activity/volume] in Serum or Plasma 2024-11-26 15:55:15 29 U/L F 0.0-33.0 Alanine aminotransferase [Enzymatic activity/volume] in Serum or Plasma 2024-11-26 15:55:15 13 U/L F 10.0-49.0 Chloride [Moles/volume] in Serum or Plasma 2024-11-11 20:31:54 94 mEq/L F 99.0-109.0 Chloride [Moles/volume] in Serum or Plasma 2024-11-11 20:31:54 94 mEq/L F 99.0-109.0 Chloride [Moles/volume] in Serum or Plasma 2024-11-11 20:31:54 94 mEq/L F 99.0-109.0 Chloride [Moles/volume] in Serum or Plasma 2024-09-19 07:15:09 91 mEq/L F 99.0-109.0 Chloride [Moles/volume] in Serum or Plasma 2024-09-19 07:15:09 91 mEq/L F 99.0-109.0 Chloride [Moles/volume] in Serum or Plasma 2024-09-19 07:15:09 91 mEq/L F 99.0-109.0 Aspartate aminotransferase [Enzymatic activity/volume] in Serum or Plasma 2024-09-18 14:59:22 24 U/L F 0.0-33.0 Alanine aminotransferase [Enzymatic activity/volume] in Serum or Plasma 2024-09-18 14:59:22 14 U/L F 10.0-49.0 Aspartate aminotransferase [Enzymatic activity/volume] in Serum or Plasma 2024-09-18 14:59:22 24 U/L F 0.0-33.0 Alanine aminotransferase [Enzymatic activity/volume] in Serum or Plasma 2024-09-18 14:59:22 14 U/L F 10.0-49.0 Alanine aminotransferase [Enzymatic activity/volume] in Serum or Plasma 2024-09-18 14:59:22 14 U/L F 10.0-49.0 Aspartate aminotransferase [Enzymatic activity/volume] in Serum or Plasma 2024-09-18 14:59:22 24 U/L F 0.0-33.0 Chloride [Moles/volume] in Serum or Plasma 2024-08-23 04:16:44 94 mEq/L F 99.0-109.0 Aspartate aminotransferase [Enzymatic activity/volume] in Serum or Plasma 2024-08-22 17:52:20 22 U/L F 0.0-33.0 Alanine aminotransferase [Enzymatic activity/volume] in Serum or Plasma 2024-08-22 17:52:20 19 U/L F 10.0-49.0 Aluminum [Mass/volume] in Serum or Plasma 2024-06-10 16:56:09 10 ug/L F 0.0-9.0 Aluminum [Mass/volume] in Serum or Plasma 2024-06-10 16:56:09 10 ug/L F 0.0-9.0 Aluminum [Mass/volume] in Serum or Plasma 2024-06-10 16:56:09 10 ug/L F 0.0-9.0 Chloride [Moles/volume] in Serum or Plasma 2024-06-08 02:36:57 94 mEq/L F 99.0-109.0 Chloride [Moles/volume] in Serum or Plasma 2024-06-08 02:36:57 94 mEq/L F 99.0-109.0 Chloride [Moles/volume] in Serum or Plasma 2024-06-08 02:36:57 94 mEq/L F 99.0-109.0 Aspartate aminotransferase [Enzymatic activity/volume] in Serum or Plasma 2024-06-07 21:12:11 27 U/L F 0.0-33.0 Alanine aminotransferase [Enzymatic activity/volume] in Serum or Plasma 2024-06-07 21:12:11 22 U/L F 10.0-49.0 Aspartate aminotransferase [Enzymatic activity/volume] in Serum or Plasma 2024-06-07 21:12:11 27 U/L F 0.0-33.0 Alanine aminotransferase [Enzymatic activity/volume] in Serum or Plasma 2024-06-07 21:12:11 22 U/L F 10.0-49.0 Alanine aminotransferase [Enzymatic activity/volume] in Serum or Plasma 2024-06-07 21:12:11 22 U/L F 10.0-49.0 Aspartate aminotransferase [Enzymatic activity/volume] in Serum or Plasma 2024-06-07 21:12:11 27 U/L F 0.0-33.0 Chloride [Moles/volume] in Serum or Plasma 2024-06-04 07:45:41 94 mEq/L F 99.0-109.0 Chloride [Moles/volume] in Serum or Plasma 2024-06-04 07:45:41 94 mEq/L F 99.0-109.0 Aspartate aminotransferase [Enzymatic activity/volume] in Serum or Plasma 2024-06-04 03:30:28 30 U/L F 0.0-33.0 Alanine aminotransferase [Enzymatic activity/volume] in Serum or Plasma 2024-06-04 03:30:28 24 U/L F 10.0-49.0 Alanine aminotransferase [Enzymatic activity/volume] in Serum or Plasma 2024-06-04 03:30:28 24 U/L F 10.0-49.0 Aspartate aminotransferase [Enzymatic activity/volume] in Serum or Plasma 2024-06-04 03:30:28 30 U/L F 0.0-33.0 Chloride [Moles/volume] in Serum or Plasma 2024-05-06 15:58:43 93 mEq/L F 99.0-109.0 Aspartate aminotransferase [Enzymatic activity/volume] in Serum or Plasma 2024-05-06 13:06:22 27 U/L F 0.0-33.0 Alanine aminotransferase [Enzymatic activity/volume] in Serum or Plasma 2024-05-06 13:06:22 18 U/L F 10.0-49.0 Chloride [Moles/volume] in Serum or Plasma 2024-04-02 06:22:05 94 mEq/L F 99.0-109.0 Chloride [Moles/volume] in Serum or Plasma 2024-04-02 06:22:05 94 mEq/L F 99.0-109.0 Aspartate aminotransferase [Enzymatic activity/volume] in Serum or Plasma 2024-04-02 04:37:45 F Recollect - Hemolyzed specimen Aspartate aminotransferase [Enzymatic activity/volume] in Serum or Plasma 2024-04-02 04:37:45 F Recollect - Hemolyzed specimen Alanine aminotransferase [Enzymatic activity/volume] in Serum or Plasma 2024-04-01 23:29:22 31 U/L F 10.0-49.0 Alanine aminotransferase [Enzymatic activity/volume] in Serum or Plasma 2024-04-01 23:29:22 31 U/L F 10.0-49.0 Chloride [Moles/volume] in Serum or Plasma 2024-03-05 07:04:56 92 mEq/L F 99.0-109.0 Chloride [Moles/volume] in Serum or Plasma 2024-03-05 07:04:56 92 mEq/L F 99.0-109.0 Aspartate aminotransferase [Enzymatic activity/volume] in Serum or Plasma 2024-03-05 00:37:33 25 U/L F 0.0-33.0 Alanine aminotransferase [Enzymatic activity/volume] in Serum or Plasma 2024-03-05 00:37:33 18 U/L F 10.0-49.0 Aspartate aminotransferase [Enzymatic activity/volume] in Serum or Plasma 2024-03-05 00:37:33 25 U/L F 0.0-33.0 Alanine aminotransferase [Enzymatic activity/volume] in Serum or Plasma 2024-03-05 00:37:33 18 U/L F 10.0-49.0 Chloride [Moles/volume] in Serum or Plasma 2024-01-30 07:28:53 92 mEq/L F 99.0-109.0 Chloride [Moles/volume] in Serum or Plasma 2024-01-30 07:28:53 92 mEq/L F 99.0-109.0 Aspartate aminotransferase [Enzymatic activity/volume] in Serum or Plasma 2024-01-29 20:56:35 23 U/L F 0.0-33.0 Alanine aminotransferase [Enzymatic activity/volume] in Serum or Plasma 2024-01-29 20:56:35 17 U/L F 10.0-49.0 Aspartate aminotransferase [Enzymatic activity/volume] in Serum or Plasma 2024-01-29 20:56:35 23 U/L F 0.0-33.0 Alanine aminotransferase [Enzymatic activity/volume] in Serum or Plasma 2024-01-29 20:56:35 17 U/L F 10.0-49.0 Chloride [Moles/volume] in Serum or Plasma 2024-01-02 06:46:34 92 mEq/L F 99.0-109.0 Chloride [Moles/volume] in Serum or Plasma 2024-01-02 06:46:34 92 mEq/L F 99.0-109.0 Aspartate aminotransferase [Enzymatic activity/volume] in Serum or Plasma 2024-01-02 03:12:40 28 U/L F 0.0-33.0 Alanine aminotransferase [Enzymatic activity/volume] in Serum or Plasma 2024-01-02 03:12:40 25 U/L F 10.0-49.0 Aspartate aminotransferase [Enzymatic activity/volume] in Serum or Plasma 2024-01-02 03:12:40 28 U/L F 0.0-33.0 Alanine aminotransferase [Enzymatic activity/volume] in Serum or Plasma 2024-01-02 03:12:40 25 U/L F 10.0-49.0 Aluminum [Mass/volume] in Serum or Plasma 2023-12-06 17:26:44 10 ug/L F 0.0-9.0 Aluminum [Mass/volume] in Serum or Plasma 2023-12-06 17:26:44 10 ug/L F 0.0-9.0 Aluminum [Mass/volume] in Serum or Plasma 2023-12-06 17:26:44 10 ug/L F 0.0-9.0 Chloride [Moles/volume] in Serum or Plasma 2023-12-06 15:53:30 91 mEq/L F 99.0-109.0 Chloride [Moles/volume] in Serum or Plasma 2023-12-06 15:53:30 91 mEq/L F 99.0-109.0 Chloride [Moles/volume] in Serum or Plasma 2023-12-06 15:53:30 91 mEq/L F 99.0-109.0 Aspartate aminotransferase [Enzymatic activity/volume] in Serum or Plasma 2023-12-06 14:55:32 26 U/L F 0.0-33.0 Alanine aminotransferase [Enzymatic activity/volume] in Serum or Plasma 2023-12-06 14:55:32 22 U/L F 10.0-49.0 Aspartate aminotransferase [Enzymatic activity/volume] in Serum or Plasma 2023-12-06 14:55:32 26 U/L F 0.0-33.0 Alanine aminotransferase [Enzymatic activity/volume] in Serum or Plasma 2023-12-06 14:55:32 22 U/L F 10.0-49.0 Alanine aminotransferase [Enzymatic activity/volume] in Serum or Plasma 2023-12-06 14:55:32 22 U/L F 10.0-49.0 Aspartate aminotransferase [Enzymatic activity/volume] in Serum or Plasma 2023-12-06 14:55:32 26 U/L F 0.0-33.0 Chloride [Moles/volume] in Serum or Plasma 2023-10-31 06:49:18 94 mEq/L F 99.0-109.0 Aspartate aminotransferase [Enzymatic activity/volume] in Serum or Plasma 2023-10-30 20:36:43 26 U/L F 0.0-33.0 Alanine aminotransferase [Enzymatic activity/volume] in Serum or Plasma 2023-10-30 20:36:43 16 U/L F 10.0-49.0 Chloride [Moles/volume] in Serum or Plasma 2023-10-03 05:25:15 92 mEq/L F 99.0-109.0 Chloride [Moles/volume] in Serum or Plasma 2023-10-03 05:25:15 92 mEq/L F 99.0-109.0 Chloride [Moles/volume] in Serum or Plasma 2023-10-03 05:25:15 92 mEq/L F 99.0-109.0 Alanine aminotransferase [Enzymatic activity/volume] in Serum or Plasma 2023-10-02 19:09:36 17 U/L F 10.0-49.0 Aspartate aminotransferase [Enzymatic activity/volume] in Serum or Plasma 2023-10-02 19:09:36 26 U/L F 0.0-33.0 Alanine aminotransferase [Enzymatic activity/volume] in Serum or Plasma 2023-10-02 19:09:36 17 U/L F 10.0-49.0 Aspartate aminotransferase [Enzymatic activity/volume] in Serum or Plasma 2023-10-02 19:09:36 26 U/L F 0.0-33.0 Aspartate aminotransferase [Enzymatic activity/volume] in Serum or Plasma 2023-10-02 19:09:36 26 U/L F 0.0-33.0 Alanine aminotransferase [Enzymatic activity/volume] in Serum or Plasma 2023-10-02 19:09:36 17 U/L F 10.0-49.0 Chloride [Moles/volume] in Serum or Plasma 2023-09-05 06:15:28 93 mEq/L F 99.0-109.0 Chloride [Moles/volume] in Serum or Plasma 2023-09-05 06:15:28 93 mEq/L F 99.0-109.0 Chloride [Moles/volume] in Serum or Plasma 2023-09-05 06:15:28 93 mEq/L F 99.0-109.0 Alanine aminotransferase [Enzymatic activity/volume] in Serum or Plasma 2023-09-05 02:32:09 18 U/L F 10.0-49.0 Aspartate aminotransferase [Enzymatic activity/volume] in Serum or Plasma 2023-09-05 02:32:09 26 U/L F 0.0-33.0 Alanine aminotransferase [Enzymatic activity/volume] in Serum or Plasma 2023-09-05 02:32:09 18 U/L F 10.0-49.0 Aspartate aminotransferase [Enzymatic activity/volume] in Serum or Plasma 2023-09-05 02:32:09 26 U/L F 0.0-33.0 Aspartate aminotransferase [Enzymatic activity/volume] in Serum or Plasma 2023-09-05 02:32:09 26 U/L F 0.0-33.0 Alanine aminotransferase [Enzymatic activity/volume] in Serum or Plasma 2023-09-05 02:32:09 18 U/L F 10.0-49.0 Chloride [Moles/volume] in Serum or Plasma 2023-08-03 04:11:42 94 mEq/L F 99.0-109.0 Chloride [Moles/volume] in Serum or Plasma 2023-08-03 04:11:42 94 mEq/L F 99.0-109.0 Chloride [Moles/volume] in Serum or Plasma 2023-08-03 04:11:42 94 mEq/L F 99.0-109.0 Aspartate aminotransferase [Enzymatic activity/volume] in Serum or Plasma 2023-08-02 23:48:44 24 U/L F 0.0-33.0 Alanine aminotransferase [Enzymatic activity/volume] in Serum or Plasma 2023-08-02 23:48:44 20 U/L F 10.0-49.0 Aspartate aminotransferase [Enzymatic activity/volume] in Serum or Plasma 2023-08-02 23:48:44 24 U/L F 0.0-33.0 Alanine aminotransferase [Enzymatic activity/volume] in Serum or Plasma 2023-08-02 23:48:44 20 U/L F 10.0-49.0 Alanine aminotransferase [Enzymatic activity/volume] in Serum or Plasma 2023-08-02 23:48:44 20 U/L F 10.0-49.0 Aspartate aminotransferase [Enzymatic activity/volume] in Serum or Plasma 2023-08-02 23:48:44 24 U/L F 0.0-33.0 Chloride [Moles/volume] in Serum or Plasma 2023-07-06 07:19:25 94 mEq/L F 99.0-109.0 Chloride [Moles/volume] in Serum or Plasma 2023-07-06 07:19:25 94 mEq/L F 99.0-109.0 Chloride [Moles/volume] in Serum or Plasma 2023-07-06 07:19:25 94 mEq/L F 99.0-109.0 Aspartate aminotransferase [Enzymatic activity/volume] in Serum or Plasma 2023-07-05 22:48:11 18 U/L F 0.0-33.0 Alanine aminotransferase [Enzymatic activity/volume] in Serum or Plasma 2023-07-05 22:48:11 16 U/L F 10.0-49.0 Aspartate aminotransferase [Enzymatic activity/volume] in Serum or Plasma 2023-07-05 22:48:11 18 U/L F 0.0-33.0 Alanine aminotransferase [Enzymatic activity/volume] in Serum or Plasma 2023-07-05 22:48:11 16 U/L F 10.0-49.0 Alanine aminotransferase [Enzymatic activity/volume] in Serum or Plasma 2023-07-05 22:48:11 16 U/L F 10.0-49.0 Aspartate aminotransferase [Enzymatic activity/volume] in Serum or Plasma 2023-07-05 22:48:11 18 U/L F 0.0-33.0 Chloride [Moles/volume] in Serum or Plasma 2023-06-05 21:47:29 90 mEq/L F 99.0-109.0 Alanine aminotransferase [Enzymatic activity/volume] in Serum or Plasma 2023-06-05 21:47:29 17 U/L F 10.0-49.0 Aspartate aminotransferase [Enzymatic activity/volume] in Serum or Plasma 2023-06-05 21:47:29 20 U/L F 0.0-33.0 Aspartate aminotransferase [Enzymatic activity/volume] in Serum or Plasma 2023-06-05 21:47:29 20 U/L F 0.0-33.0 Alanine aminotransferase [Enzymatic activity/volume] in Serum or Plasma 2023-06-05 21:47:29 17 U/L F 10.0-49.0 Chloride [Moles/volume] in Serum or Plasma 2023-06-05 21:47:29 90 mEq/L F 99.0-109.0 Aspartate aminotransferase [Enzymatic activity/volume] in Serum or Plasma 2023-05-03 17:43:30 17 U/L F 0.0-33.0 Alanine aminotransferase [Enzymatic activity/volume] in Serum or Plasma 2023-05-03 17:43:30 13 U/L F 10.0-49.0 Chloride [Moles/volume] in Serum or Plasma 2023-05-03 17:43:30 95 mEq/L F 99.0-109.0 Aspartate aminotransferase [Enzymatic activity/volume] in Serum or Plasma 2023-05-03 17:43:30 17 U/L F 0.0-33.0 Alanine aminotransferase [Enzymatic activity/volume] in Serum or Plasma 2023-05-03 17:43:30 13 U/L F 10.0-49.0 Chloride [Moles/volume] in Serum or Plasma 2023-05-03 17:43:30 95 mEq/L F 99.0-109.0 Aspartate aminotransferase [Enzymatic activity/volume] in Serum or Plasma 2023-04-03 23:38:34 25 U/L F 0.0-33.0 Alanine aminotransferase [Enzymatic activity/volume] in Serum or Plasma 2023-04-03 23:38:34 16 U/L F 10.0-49.0 Chloride [Moles/volume] in Serum or Plasma 2023-04-03 23:38:34 96 mEq/L F 99.0-109.0 Aspartate aminotransferase [Enzymatic activity/volume] in Serum or Plasma 2023-04-03 23:38:34 25 U/L F 0.0-33.0 Alanine aminotransferase [Enzymatic activity/volume] in Serum or Plasma 2023-04-03 23:38:34 16 U/L F 10.0-49.0 Chloride [Moles/volume] in Serum or Plasma 2023-04-03 23:38:34 96 mEq/L F 99.0-109.0 Aspartate aminotransferase [Enzymatic activity/volume] in Serum or Plasma 2023-03-06 19:55:32 20 U/L F 0.0-33.0 Alanine aminotransferase [Enzymatic activity/volume] in Serum or Plasma 2023-03-06 19:55:32 17 U/L F 10.0-49.0 Chloride [Moles/volume] in Serum or Plasma 2023-03-06 19:55:32 97 mEq/L F 99.0-109.0 Aspartate aminotransferase [Enzymatic activity/volume] in Serum or Plasma 2023-01-30 23:47:23 29 U/L F 0.0-33.0 Alanine aminotransferase [Enzymatic activity/volume] in Serum or Plasma 2023-01-30 23:47:23 16 U/L F 10.0-49.0 Chloride [Moles/volume] in Serum or Plasma 2023-01-30 23:47:23 97 mEq/L F 99.0-109.0 Aspartate aminotransferase [Enzymatic activity/volume] in Serum or Plasma 2023-01-30 23:47:23 29 U/L F 0.0-33.0 Alanine aminotransferase [Enzymatic activity/volume] in Serum or Plasma 2023-01-30 23:47:23 16 U/L F 10.0-49.0 Chloride [Moles/volume] in Serum or Plasma 2023-01-30 23:47:23 97 mEq/L F 99.0-109.0 Aspartate aminotransferase [Enzymatic activity/volume] in Serum or Plasma 2023-01-02 23:19:18 24 U/L F 0.0-33.0 Alanine aminotransferase [Enzymatic activity/volume] in Serum or Plasma 2023-01-02 23:19:18 16 U/L F 10.0-49.0 Chloride [Moles/volume] in Serum or Plasma 2023-01-02 23:19:18 98 mEq/L F 99.0-109.0 Aspartate aminotransferase [Enzymatic activity/volume] in Serum or Plasma 2022-11-28 21:58:23 25 U/L F 0.0-33.0 Alanine aminotransferase [Enzymatic activity/volume] in Serum or Plasma 2022-11-28 21:58:23 17 U/L F 10.0-49.0 Chloride [Moles/volume] in Serum or Plasma 2022-11-28 21:58:23 96 mEq/L F 99.0-109.0 Aspartate aminotransferase [Enzymatic activity/volume] in Serum or Plasma 2022-11-28 21:58:23 25 U/L F 0.0-33.0 Alanine aminotransferase [Enzymatic activity/volume] in Serum or Plasma 2022-11-28 21:58:23 17 U/L F 10.0-49.0 Chloride [Moles/volume] in Serum or Plasma 2022-11-28 21:58:23 96 mEq/L F 99.0-109.0 Aspartate aminotransferase [Enzymatic activity/volume] in Serum or Plasma 2022-10-11 05:32:19 22 U/L F 0.0-33.0 Alanine aminotransferase [Enzymatic activity/volume] in Serum or Plasma 2022-10-11 05:32:19 18 U/L F 10.0-49.0 Chloride [Moles/volume] in Serum or Plasma 2022-10-11 05:32:19 94 mEq/L F 99.0-109.0 Aspartate aminotransferase [Enzymatic activity/volume] in Serum or Plasma 2022-10-11 05:32:19 22 U/L F 0.0-33.0 Alanine aminotransferase [Enzymatic activity/volume] in Serum or Plasma 2022-10-11 05:32:19 18 U/L F 10.0-49.0 Chloride [Moles/volume] in Serum or Plasma 2022-10-11 05:32:19 94 mEq/L F 99.0-109.0 Chloride [Moles/volume] in Serum or Plasma 2022-10-11 05:32:19 94 mEq/L F 99.0-109.0 Alanine aminotransferase [Enzymatic activity/volume] in Serum or Plasma 2022-10-11 05:32:19 18 U/L F 10.0-49.0 Aspartate aminotransferase [Enzymatic activity/volume] in Serum or Plasma 2022-10-11 05:32:19 22 U/L F 0.0-33.0 Aluminum [Mass/volume] in Serum or Plasma 2022-10-10 18:32:58 10 ug/L F 0.0-9.0 Aluminum [Mass/volume] in Serum or Plasma 2022-10-10 18:32:58 10 ug/L F 0.0-9.0 Aluminum [Mass/volume] in Serum or Plasma 2022-10-10 18:32:58 10 ug/L F 0.0-9.0 Aspartate aminotransferase [Enzymatic activity/volume] in Serum or Plasma 2022-09-28 20:10:21 22 U/L F 0.0-33.0 Alanine aminotransferase [Enzymatic activity/volume] in Serum or Plasma 2022-09-28 20:10:21 20 U/L F 10.0-49.0 Chloride [Moles/volume] in Serum or Plasma 2022-09-28 20:10:21 98 mEq/L F 99.0-109.0 Alanine aminotransferase [Enzymatic activity/volume] in Serum or Plasma 2022-08-31 13:53:59 18 U/L F 10.0-49.0 Chloride [Moles/volume] in Serum or Plasma 2022-08-31 13:53:59 98 mEq/L F 99.0-109.0 Alanine aminotransferase [Enzymatic activity/volume] in Serum or Plasma 2022-08-31 13:53:59 18 U/L F 10.0-49.0 Chloride [Moles/volume] in Serum or Plasma 2022-08-31 13:53:59 98 mEq/L F 99.0-109.0 Aspartate aminotransferase [Enzymatic activity/volume] in Serum or Plasma 2022-08-31 13:53:58 18 U/L F 0.0-33.0 Aspartate aminotransferase [Enzymatic activity/volume] in Serum or Plasma 2022-08-31 13:53:58 18 U/L F 0.0-33.0 Aspartate aminotransferase [Enzymatic activity/volume] in Serum or Plasma 2022-07-27 16:54:48 18 U/L F 0.0-33.0 Alanine aminotransferase [Enzymatic activity/volume] in Serum or Plasma 2022-07-27 16:54:48 13 U/L F 10.0-49.0 Chloride [Moles/volume] in Serum or Plasma 2022-07-27 16:54:48 92 mEq/L F 99.0-109.0 Chloride [Moles/volume] in Serum or Plasma 2022-07-27 16:54:48 92 mEq/L F 99.0-109.0 Alanine aminotransferase [Enzymatic activity/volume] in Serum or Plasma 2022-07-27 16:54:48 13 U/L F 10.0-49.0 Aspartate aminotransferase [Enzymatic activity/volume] in Serum or Plasma 2022-07-27 16:54:48 18 U/L F 0.0-33.0 Chloride [Moles/volume] in Serum or Plasma 2022-07-27 16:54:48 92 mEq/L F 99.0-109.0 Alanine aminotransferase [Enzymatic activity/volume] in Serum or Plasma 2022-07-27 16:54:48 13 U/L F 10.0-49.0 Aspartate aminotransferase [Enzymatic activity/volume] in Serum or Plasma 2022-07-27 16:54:48 18 U/L F 0.0-33.0 Aspartate aminotransferase [Enzymatic activity/volume] in Serum or Plasma 2022-06-29 14:39:43 18 U/L F 0.0-33.0 Alanine aminotransferase [Enzymatic activity/volume] in Serum or Plasma 2022-06-29 14:39:43 16 U/L F 10.0-49.0 Chloride [Moles/volume] in Serum or Plasma 2022-06-29 14:39:43 96 mEq/L F 99.0-109.0 Chloride [Moles/volume] in Serum or Plasma 2022-06-29 14:39:43 96 mEq/L F 99.0-109.0 Alanine aminotransferase [Enzymatic activity/volume] in Serum or Plasma 2022-06-29 14:39:43 16 U/L F 10.0-49.0 Aspartate aminotransferase [Enzymatic activity/volume] in Serum or Plasma 2022-06-29 14:39:43 18 U/L F 0.0-33.0 Aspartate aminotransferase [Enzymatic activity/volume] in Serum or Plasma Alanine aminotransferase [Enzymatic activity/volume] in Serum or Plasma Alanine aminotransferase [Enzymatic activity/volume] in Serum or Plasma Aspartate aminotransferase [Enzymatic activity/volume] in Serum or Plasma Alanine aminotransferase [Enzymatic activity/volume] in Serum or Plasma Aspartate aminotransferase [Enzymatic activity/volume] in Serum or Plasma InfectionVaccination Description Draw Date Result/Unit Status Ref Range Result Comments Basophils/100 leukocytes in Blood by Automated count 2025-03-04 00:11:20 0.3 % F Basophils/100 leukocytes in Blood by Automated count 2025-03-04 00:11:20 0.3 % F Neutrophils/100 leukocytes in Blood by Automated count 2025-03-04 00:11:17 77.1 % F Lymphocytes/100 leukocytes in Blood by Automated count 2025-03-04 00:11:17 15.8 % F Monocytes/100 leukocytes in Blood by Automated count 2025-03-04 00:11:17 5.9 % F Eosinophils/100 leukocytes in Blood by Automated count 2025-03-04 00:11:17 0.9 % F Leukocytes [#/volume] in Blood by Automated count 2025-03-04 00:11:17 6.4 x 10^3 cells/uL F 4.0-11.0 Neutrophils [#/volume] in Blood by Automated count 2025-03-04 00:11:17 4973 Cells/uL F 2000.0-8800. 0 Lymphocytes [#/volume] in Blood by Automated count 2025-03-04 00:11:17 1019 Cells/uL F 620.0-3660.0 Basophils [#/volume] in Blood by Automated count 2025-03-04 00:11:17 19 Cells/uL F 0.0-400.0 Monocytes [#/volume] in Blood by Automated count 2025-03-04 00:11:17 381 Cells/uL F 0.0-1100.0 Eosinophils [#/volume] in Blood by Automated count 2025-03-04 00:11:17 58 Cells/uL F 0.0-700.0 Neutrophils/100 leukocytes in Blood by Automated count 2025-03-04 00:11:17 77.1 % F Eosinophils/100 leukocytes in Blood by Automated count 2025-03-04 00:11:17 0.9 % F Monocytes/100 leukocytes in Blood by Automated count 2025-03-04 00:11:17 5.9 % F Monocytes [#/volume] in Blood by Automated count 2025-03-04 00:11:17 381 Cells/uL F 0.0-1100.0 Basophils [#/volume] in Blood by Automated count 2025-03-04 00:11:17 19 Cells/uL F 0.0-400.0 Lymphocytes/100 leukocytes in Blood by Automated count 2025-03-04 00:11:17 15.8 % F Eosinophils [#/volume] in Blood by Automated count 2025-03-04 00:11:17 58 Cells/uL F 0.0-700.0 Neutrophils [#/volume] in Blood by Automated count 2025-03-04 00:11:17 4973 Cells/uL F 2000.0-8800. 0 Leukocytes [#/volume] in Blood by Automated count 2025-03-04 00:11:17 6.4 x 10^3 cells/uL F 4.0-11.0 Lymphocytes [#/volume] in Blood by Automated count 2025-03-04 00:11:17 1019 Cells/uL F 620.0-3660.0 Neutrophils [#/volume] in Blood by Automated count 2025-02-04 03:01:17 4786 Cells/uL F 2000.0-8800. 0 Monocytes/100 leukocytes in Blood by Automated count 2025-02-04 03:01:17 5.7 % F Monocytes/100 leukocytes in Blood by Automated count 2025-02-04 03:01:17 5.7 % F Neutrophils [#/volume] in Blood by Automated count 2025-02-04 03:01:17 4786 Cells/uL F 2000.0-8800. 0 Monocytes/100 leukocytes in Blood by Automated count 2025-02-04 03:01:17 5.7 % F Neutrophils [#/volume] in Blood by Automated count 2025-02-04 03:01:17 4786 Cells/uL F 2000.0-8800. 0 Leukocytes [#/volume] in Blood by Automated count 2025-02-04 03:01:14 6.8 x 10^3 cells/uL F 4.0-11.0 Lymphocytes [#/volume] in Blood by Automated count 2025-02-04 03:01:14 1453 Cells/uL F 620.0-3660.0 Neutrophils/100 leukocytes in Blood by Automated count 2025-02-04 03:01:14 70.8 % F Basophils/100 leukocytes in Blood by Automated count 2025-02-04 03:01:14 0.6 % F Eosinophils [#/volume] in Blood by Automated count 2025-02-04 03:01:14 101 Cells/uL F 0.0-700.0 Lymphocytes/100 leukocytes in Blood by Automated count 2025-02-04 03:01:14 21.5 % F Basophils [#/volume] in Blood by Automated count 2025-02-04 03:01:14 41 Cells/uL F 0.0-400.0 Eosinophils/100 leukocytes in Blood by Automated count 2025-02-04 03:01:14 1.5 % F Monocytes [#/volume] in Blood by Automated count 2025-02-04 03:01:14 385 Cells/uL F 0.0-1100.0 Basophils/100 leukocytes in Blood by Automated count 2025-02-04 03:01:14 0.6 % F Neutrophils/100 leukocytes in Blood by Automated count 2025-02-04 03:01:14 70.8 % F Lymphocytes/100 leukocytes in Blood by Automated count 2025-02-04 03:01:14 21.5 % F Eosinophils/100 leukocytes in Blood by Automated count 2025-02-04 03:01:14 1.5 % F Leukocytes [#/volume] in Blood by Automated count 2025-02-04 03:01:14 6.8 x 10^3 cells/uL F 4.0-11.0 Lymphocytes [#/volume] in Blood by Automated count 2025-02-04 03:01:14 1453 Cells/uL F 620.0-3660.0 Monocytes [#/volume] in Blood by Automated count 2025-02-04 03:01:14 385 Cells/uL F 0.0-1100.0 Basophils [#/volume] in Blood by Automated count 2025-02-04 03:01:14 41 Cells/uL F 0.0-400.0 Eosinophils [#/volume] in Blood by Automated count 2025-02-04 03:01:14 101 Cells/uL F 0.0-700.0 Neutrophils/100 leukocytes in Blood by Automated count 2025-02-04 03:01:14 70.8 % F Basophils/100 leukocytes in Blood by Automated count 2025-02-04 03:01:14 0.6 % F Lymphocytes/100 leukocytes in Blood by Automated count 2025-02-04 03:01:14 21.5 % F Eosinophils/100 leukocytes in Blood by Automated count 2025-02-04 03:01:14 1.5 % F Monocytes [#/volume] in Blood by Automated count 2025-02-04 03:01:14 385 Cells/uL F 0.0-1100.0 Basophils [#/volume] in Blood by Automated count 2025-02-04 03:01:14 41 Cells/uL F 0.0-400.0 Eosinophils [#/volume] in Blood by Automated count 2025-02-04 03:01:14 101 Cells/uL F 0.0-700.0 Leukocytes [#/volume] in Blood by Automated count 2025-02-04 03:01:14 6.8 x 10^3 cells/uL F 4.0-11.0 Lymphocytes [#/volume] in Blood by Automated count 2025-02-04 03:01:14 1453 Cells/uL F 620.0-3660.0 Neutrophils/100 leukocytes in Blood by Automated count 2024-12-30 23:05:16 68.5 % F Basophils/100 leukocytes in Blood by Automated count 2024-12-30 23:05:16 0.7 % F Eosinophils/100 leukocytes in Blood by Automated count 2024-12-30 23:05:16 1.9 % F Monocytes/100 leukocytes in Blood by Automated count 2024-12-30 23:05:16 6.3 % F Lymphocytes/100 leukocytes in Blood by Automated count 2024-12-30 23:05:16 22.5 % F Leukocytes [#/volume] in Blood by Automated count 2024-12-30 23:05:16 7.3 x 10^3 cells/uL F 4.0-11.0 Neutrophils [#/volume] in Blood by Automated count 2024-12-30 23:05:16 5007 Cells/uL F 2000.0-8800. 0 Lymphocytes [#/volume] in Blood by Automated count 2024-12-30 23:05:16 1645 Cells/uL F 620.0-3660.0 Monocytes [#/volume] in Blood by Automated count 2024-12-30 23:05:16 461 Cells/uL F 0.0-1100.0 Basophils [#/volume] in Blood by Automated count 2024-12-30 23:05:16 51 Cells/uL F 0.0-400.0 Eosinophils [#/volume] in Blood by Automated count 2024-12-30 23:05:16 139 Cells/uL F 0.0-700.0 Lymphocytes/100 leukocytes in Blood by Automated count 2024-12-30 23:05:16 22.5 % F Monocytes/100 leukocytes in Blood by Automated count 2024-12-30 23:05:16 6.3 % F Neutrophils/100 leukocytes in Blood by Automated count 2024-12-30 23:05:16 68.5 % F Eosinophils/100 leukocytes in Blood by Automated count 2024-12-30 23:05:16 1.9 % F Basophils/100 leukocytes in Blood by Automated count 2024-12-30 23:05:16 0.7 % F Monocytes [#/volume] in Blood by Automated count 2024-12-30 23:05:16 461 Cells/uL F 0.0-1100.0 Eosinophils [#/volume] in Blood by Automated count 2024-12-30 23:05:16 139 Cells/uL F 0.0-700.0 Basophils [#/volume] in Blood by Automated count 2024-12-30 23:05:16 51 Cells/uL F 0.0-400.0 Neutrophils [#/volume] in Blood by Automated count 2024-12-30 23:05:16 5007 Cells/uL F 2000.0-8800. 0 Leukocytes [#/volume] in Blood by Automated count 2024-12-30 23:05:16 7.3 x 10^3 cells/uL F 4.0-11.0 Lymphocytes [#/volume] in Blood by Automated count 2024-12-30 23:05:16 1645 Cells/uL F 620.0-3660.0 Neutrophils/100 leukocytes in Blood by Automated count 2024-12-30 23:05:16 68.5 % F Lymphocytes/100 leukocytes in Blood by Automated count 2024-12-30 23:05:16 22.5 % F Monocytes/100 leukocytes in Blood by Automated count 2024-12-30 23:05:16 6.3 % F Basophils/100 leukocytes in Blood by Automated count 2024-12-30 23:05:16 0.7 % F Eosinophils/100 leukocytes in Blood by Automated count 2024-12-30 23:05:16 1.9 % F Monocytes [#/volume] in Blood by Automated count 2024-12-30 23:05:16 461 Cells/uL F 0.0-1100.0 Basophils [#/volume] in Blood by Automated count 2024-12-30 23:05:16 51 Cells/uL F 0.0-400.0 Eosinophils [#/volume] in Blood by Automated count 2024-12-30 23:05:16 139 Cells/uL F 0.0-700.0 Neutrophils [#/volume] in Blood by Automated count 2024-12-30 23:05:16 5007 Cells/uL F 2000.0-8800. 0 Leukocytes [#/volume] in Blood by Automated count 2024-12-30 23:05:16 7.3 x 10^3 cells/uL F 4.0-11.0 Lymphocytes [#/volume] in Blood by Automated count 2024-12-30 23:05:16 1645 Cells/uL F 620.0-3660.0 Basophils/100 leukocytes in Blood by Automated count 2024-12-30 23:05:16 0.7 % F Neutrophils/100 leukocytes in Blood by Automated count 2024-12-30 23:05:16 68.5 % F Lymphocytes/100 leukocytes in Blood by Automated count 2024-12-30 23:05:16 22.5 % F Monocytes/100 leukocytes in Blood by Automated count 2024-12-30 23:05:16 6.3 % F Eosinophils/100 leukocytes in Blood by Automated count 2024-12-30 23:05:16 1.9 % F Leukocytes [#/volume] in Blood by Automated count 2024-12-30 23:05:16 7.3 x 10^3 cells/uL F 4.0-11.0 Neutrophils [#/volume] in Blood by Automated count 2024-12-30 23:05:16 5007 Cells/uL F 2000.0-8800. 0 Lymphocytes [#/volume] in Blood by Automated count 2024-12-30 23:05:16 1645 Cells/uL F 620.0-3660.0 Monocytes [#/volume] in Blood by Automated count 2024-12-30 23:05:16 461 Cells/uL F 0.0-1100.0 Eosinophils [#/volume] in Blood by Automated count 2024-12-30 23:05:16 139 Cells/uL F 0.0-700.0 Basophils [#/volume] in Blood by Automated count 2024-12-30 23:05:16 51 Cells/uL F 0.0-400.0 Basophils/100 leukocytes in Blood by Automated count 2024-11-26 17:05:09 0.3 % F Lymphocytes/100 leukocytes in Blood by Automated count 2024-11-26 17:05:09 15.9 % F Neutrophils/100 leukocytes in Blood by Automated count 2024-11-26 17:05:09 76.6 % F Monocytes/100 leukocytes in Blood by Automated count 2024-11-26 17:05:09 4.4 % F Eosinophils/100 leukocytes in Blood by Automated count 2024-11-26 17:05:09 2.8 % F Leukocytes [#/volume] in Blood by Automated count 2024-11-26 17:05:09 8.2 x 10^3 cells/uL F 4.0-11.0 Lymphocytes [#/volume] in Blood by Automated count 2024-11-26 17:05:09 1304 Cells/uL F 620.0-3660.0 Neutrophils [#/volume] in Blood by Automated count 2024-11-26 17:05:09 6281 Cells/uL F 2000.0-8800. 0 Basophils [#/volume] in Blood by Automated count 2024-11-26 17:05:09 25 Cells/uL F 0.0-400.0 Monocytes [#/volume] in Blood by Automated count 2024-11-26 17:05:09 361 Cells/uL F 0.0-1100.0 Eosinophils [#/volume] in Blood by Automated count 2024-11-26 17:05:09 230 Cells/uL F 0.0-700.0 Basophils/100 leukocytes in Blood by Automated count 2024-11-26 17:05:09 0.3 % F Neutrophils/100 leukocytes in Blood by Automated count 2024-11-26 17:05:09 76.6 % F Monocytes/100 leukocytes in Blood by Automated count 2024-11-26 17:05:09 4.4 % F Eosinophils/100 leukocytes in Blood by Automated count 2024-11-26 17:05:09 2.8 % F Lymphocytes/100 leukocytes in Blood by Automated count 2024-11-26 17:05:09 15.9 % F Leukocytes [#/volume] in Blood by Automated count 2024-11-26 17:05:09 8.2 x 10^3 cells/uL F 4.0-11.0 Neutrophils [#/volume] in Blood by Automated count 2024-11-26 17:05:09 6281 Cells/uL F 2000.0-8800. 0 Lymphocytes [#/volume] in Blood by Automated count 2024-11-26 17:05:09 1304 Cells/uL F 620.0-3660.0 Monocytes [#/volume] in Blood by Automated count 2024-11-26 17:05:09 361 Cells/uL F 0.0-1100.0 Basophils [#/volume] in Blood by Automated count 2024-11-26 17:05:09 25 Cells/uL F 0.0-400.0 Eosinophils [#/volume] in Blood by Automated count 2024-11-26 17:05:09 230 Cells/uL F 0.0-700.0 Eosinophils/100 leukocytes in Blood by Automated count 2024-11-26 17:05:09 2.8 % F Monocytes/100 leukocytes in Blood by Automated count 2024-11-26 17:05:09 4.4 % F Neutrophils/100 leukocytes in Blood by Automated count 2024-11-26 17:05:09 76.6 % F Basophils/100 leukocytes in Blood by Automated count 2024-11-26 17:05:09 0.3 % F Lymphocytes/100 leukocytes in Blood by Automated count 2024-11-26 17:05:09 15.9 % F Monocytes [#/volume] in Blood by Automated count 2024-11-26 17:05:09 361 Cells/uL F 0.0-1100.0 Basophils [#/volume] in Blood by Automated count 2024-11-26 17:05:09 25 Cells/uL F 0.0-400.0 Eosinophils [#/volume] in Blood by Automated count 2024-11-26 17:05:09 230 Cells/uL F 0.0-700.0 Neutrophils [#/volume] in Blood by Automated count 2024-11-26 17:05:09 6281 Cells/uL F 2000.0-8800. 0 Leukocytes [#/volume] in Blood by Automated count 2024-11-26 17:05:09 8.2 x 10^3 cells/uL F 4.0-11.0 Lymphocytes [#/volume] in Blood by Automated count 2024-11-26 17:05:09 1304 Cells/uL F 620.0-3660.0 Basophils/100 leukocytes in Blood by Automated count 2024-11-11 16:50:18 0.2 % F Monocytes/100 leukocytes in Blood by Automated count 2024-11-11 16:50:18 8.5 % F Lymphocytes/100 leukocytes in Blood by Automated count 2024-11-11 16:50:18 23.5 % F Neutrophils/100 leukocytes in Blood by Automated count 2024-11-11 16:50:18 66.2 % F Eosinophils/100 leukocytes in Blood by Automated count 2024-11-11 16:50:18 1.6 % F Neutrophils [#/volume] in Blood by Automated count 2024-11-11 16:50:18 4727 Cells/uL F 2000.0-8800. 0 Leukocytes [#/volume] in Blood by Automated count 2024-11-11 16:50:18 7.1 x 10^3 cells/uL F 4.0-11.0 Lymphocytes [#/volume] in Blood by Automated count 2024-11-11 16:50:18 1678 Cells/uL F 620.0-3660.0 Basophils/100 leukocytes in Blood by Automated count 2024-11-11 16:50:18 0.2 % F Neutrophils/100 leukocytes in Blood by Automated count 2024-11-11 16:50:18 66.2 % F Lymphocytes/100 leukocytes in Blood by Automated count 2024-11-11 16:50:18 23.5 % F Eosinophils/100 leukocytes in Blood by Automated count 2024-11-11 16:50:18 1.6 % F Monocytes/100 leukocytes in Blood by Automated count 2024-11-11 16:50:18 8.5 % F Leukocytes [#/volume] in Blood by Automated count 2024-11-11 16:50:18 7.1 x 10^3 cells/uL F 4.0-11.0 Neutrophils [#/volume] in Blood by Automated count 2024-11-11 16:50:18 4727 Cells/uL F 2000.0-8800. 0 Lymphocytes [#/volume] in Blood by Automated count 2024-11-11 16:50:18 1678 Cells/uL F 620.0-3660.0 Basophils/100 leukocytes in Blood by Automated count 2024-11-11 16:50:18 0.2 % F Neutrophils/100 leukocytes in Blood by Automated count 2024-11-11 16:50:18 66.2 % F Lymphocytes/100 leukocytes in Blood by Automated count 2024-11-11 16:50:18 23.5 % F Monocytes/100 leukocytes in Blood by Automated count 2024-11-11 16:50:18 8.5 % F Eosinophils/100 leukocytes in Blood by Automated count 2024-11-11 16:50:18 1.6 % F Leukocytes [#/volume] in Blood by Automated count 2024-11-11 16:50:18 7.1 x 10^3 cells/uL F 4.0-11.0 Neutrophils [#/volume] in Blood by Automated count 2024-11-11 16:50:18 4727 Cells/uL F 2000.0-8800. 0 Lymphocytes [#/volume] in Blood by Automated count 2024-11-11 16:50:18 1678 Cells/uL F 620.0-3660.0 Monocytes [#/volume] in Blood by Automated count 2024-11-11 16:50:16 607 Cells/uL F 0.0-1100.0 Eosinophils [#/volume] in Blood by Automated count 2024-11-11 16:50:16 114 Cells/uL F 0.0-700.0 Basophils [#/volume] in Blood by Automated count 2024-11-11 16:50:16 14 Cells/uL F 0.0-400.0 Monocytes [#/volume] in Blood by Automated count 2024-11-11 16:50:16 607 Cells/uL F 0.0-1100.0 Eosinophils [#/volume] in Blood by Automated count 2024-11-11 16:50:16 114 Cells/uL F 0.0-700.0 Basophils [#/volume] in Blood by Automated count 2024-11-11 16:50:16 14 Cells/uL F 0.0-400.0 Monocytes [#/volume] in Blood by Automated count 2024-11-11 16:50:16 607 Cells/uL F 0.0-1100.0 Basophils [#/volume] in Blood by Automated count 2024-11-11 16:50:16 14 Cells/uL F 0.0-400.0 Eosinophils [#/volume] in Blood by Automated count 2024-11-11 16:50:16 114 Cells/uL F 0.0-700.0 Neutrophils/100 leukocytes in Blood by Automated count 2024-09-18 15:42:13 69.7 % F Lymphocytes/100 leukocytes in Blood by Automated count 2024-09-18 15:42:13 22 % F Basophils/100 leukocytes in Blood by Automated count 2024-09-18 15:42:13 0.3 % F Eosinophils/100 leukocytes in Blood by Automated count 2024-09-18 15:42:13 0.8 % F Monocytes/100 leukocytes in Blood by Automated count 2024-09-18 15:42:13 7.2 % F Monocytes [#/volume] in Blood by Automated count 2024-09-18 15:42:13 334 Cells/uL F 0.0-1100.0 Basophils [#/volume] in Blood by Automated count 2024-09-18 15:42:13 14 Cells/uL F 0.0-400.0 Eosinophils [#/volume] in Blood by Automated count 2024-09-18 15:42:13 37 Cells/uL F 0.0-700.0 Neutrophils [#/volume] in Blood by Automated count 2024-09-18 15:42:13 3234 Cells/uL F 2000.0-8800. 0 Leukocytes [#/volume] in Blood by Automated count 2024-09-18 15:42:13 4.6 x 10^3 cells/uL F 4.0-11.0 Lymphocytes [#/volume] in Blood by Automated count 2024-09-18 15:42:13 1021 Cells/uL F 620.0-3660.0 Neutrophils/100 leukocytes in Blood by Automated count 2024-09-18 15:42:13 69.7 % F Lymphocytes/100 leukocytes in Blood by Automated count 2024-09-18 15:42:13 22 % F Basophils/100 leukocytes in Blood by Automated count 2024-09-18 15:42:13 0.3 % F Monocytes/100 leukocytes in Blood by Automated count 2024-09-18 15:42:13 7.2 % F Eosinophils/100 leukocytes in Blood by Automated count 2024-09-18 15:42:13 0.8 % F Monocytes [#/volume] in Blood by Automated count 2024-09-18 15:42:13 334 Cells/uL F 0.0-1100.0 Basophils [#/volume] in Blood by Automated count 2024-09-18 15:42:13 14 Cells/uL F 0.0-400.0 Eosinophils [#/volume] in Blood by Automated count 2024-09-18 15:42:13 37 Cells/uL F 0.0-700.0 Neutrophils [#/volume] in Blood by Automated count 2024-09-18 15:42:13 3234 Cells/uL F 2000.0-8800. 0 Leukocytes [#/volume] in Blood by Automated count 2024-09-18 15:42:13 4.6 x 10^3 cells/uL F 4.0-11.0 Lymphocytes [#/volume] in Blood by Automated count 2024-09-18 15:42:13 1021 Cells/uL F 620.0-3660.0 Basophils/100 leukocytes in Blood by Automated count 2024-09-18 15:42:13 0.3 % F Neutrophils/100 leukocytes in Blood by Automated count 2024-09-18 15:42:13 69.7 % F Lymphocytes/100 leukocytes in Blood by Automated count 2024-09-18 15:42:13 22 % F Monocytes/100 leukocytes in Blood by Automated count 2024-09-18 15:42:13 7.2 % F Leukocytes [#/volume] in Blood by Automated count 2024-09-18 15:42:13 4.6 x 10^3 cells/uL F 4.0-11.0 Eosinophils/100 leukocytes in Blood by Automated count 2024-09-18 15:42:13 0.8 % F Neutrophils [#/volume] in Blood by Automated count 2024-09-18 15:42:13 3234 Cells/uL F 2000.0-8800. 0 Monocytes [#/volume] in Blood by Automated count 2024-09-18 15:42:13 334 Cells/uL F 0.0-1100.0 Basophils [#/volume] in Blood by Automated count 2024-09-18 15:42:13 14 Cells/uL F 0.0-400.0 Eosinophils [#/volume] in Blood by Automated count 2024-09-18 15:42:13 37 Cells/uL F 0.0-700.0 Lymphocytes [#/volume] in Blood by Automated count 2024-09-18 15:42:13 1021 Cells/uL F 620.0-3660.0 Neutrophils/100 leukocytes in Blood by Automated count 2024-08-22 17:10:16 79.9 % F Monocytes/100 leukocytes in Blood by Automated count 2024-08-22 17:10:16 6.7 % F Eosinophils/100 leukocytes in Blood by Automated count 2024-08-22 17:10:16 0.7 % F Basophils/100 leukocytes in Blood by Automated count 2024-08-22 17:10:16 0.7 % F Lymphocytes/100 leukocytes in Blood by Automated count 2024-08-22 17:10:16 11.9 % F Monocytes [#/volume] in Blood by Automated count 2024-08-22 17:10:16 398 Cells/uL F 0.0-1100.0 Basophils [#/volume] in Blood by Automated count 2024-08-22 17:10:16 42 Cells/uL F 0.0-400.0 Eosinophils [#/volume] in Blood by Automated count 2024-08-22 17:10:16 42 Cells/uL F 0.0-700.0 Neutrophils [#/volume] in Blood by Automated count 2024-08-22 17:10:16 4746 Cells/uL F 2000.0-8800. 0 Leukocytes [#/volume] in Blood by Automated count 2024-08-22 17:10:16 5.9 x 10^3 cells/uL F 4.0-11.0 Lymphocytes [#/volume] in Blood by Automated count 2024-08-22 17:10:16 707 Cells/uL F 620.0-3660.0 Monocytes/100 leukocytes in Blood by Automated count 2024-06-07 18:50:11 6.1 % F Lymphocytes/100 leukocytes in Blood by Automated count 2024-06-07 18:50:11 12.9 % F Neutrophils/100 leukocytes in Blood by Automated count 2024-06-07 18:50:11 79.6 % F Basophils/100 leukocytes in Blood by Automated count 2024-06-07 18:50:11 0.4 % F Eosinophils/100 leukocytes in Blood by Automated count 2024-06-07 18:50:11 1.1 % F Monocytes [#/volume] in Blood by Automated count 2024-06-07 18:50:11 384 Cells/uL F 0.0-1100.0 Basophils [#/volume] in Blood by Automated count 2024-06-07 18:50:11 25 Cells/uL F 0.0-400.0 Eosinophils [#/volume] in Blood by Automated count 2024-06-07 18:50:11 69 Cells/uL F 0.0-700.0 Neutrophils [#/volume] in Blood by Automated count 2024-06-07 18:50:11 5007 Cells/uL F 2000.0-8800. 0 Leukocytes [#/volume] in Blood by Automated count 2024-06-07 18:50:11 6.3 x 10^3 cells/uL F 4.0-11.0 Lymphocytes [#/volume] in Blood by Automated count 2024-06-07 18:50:11 811 Cells/uL F 620.0-3660.0 Monocytes/100 leukocytes in Blood by Automated count 2024-06-07 18:50:11 6.1 % F Lymphocytes/100 leukocytes in Blood by Automated count 2024-06-07 18:50:11 12.9 % F Eosinophils/100 leukocytes in Blood by Automated count 2024-06-07 18:50:11 1.1 % F Basophils/100 leukocytes in Blood by Automated count 2024-06-07 18:50:11 0.4 % F Neutrophils/100 leukocytes in Blood by Automated count 2024-06-07 18:50:11 79.6 % F Monocytes [#/volume] in Blood by Automated count 2024-06-07 18:50:11 384 Cells/uL F 0.0-1100.0 Basophils [#/volume] in Blood by Automated count 2024-06-07 18:50:11 25 Cells/uL F 0.0-400.0 Eosinophils [#/volume] in Blood by Automated count 2024-06-07 18:50:11 69 Cells/uL F 0.0-700.0 Neutrophils [#/volume] in Blood by Automated count 2024-06-07 18:50:11 5007 Cells/uL F 2000.0-8800. 0 Leukocytes [#/volume] in Blood by Automated count 2024-06-07 18:50:11 6.3 x 10^3 cells/uL F 4.0-11.0 Lymphocytes [#/volume] in Blood by Automated count 2024-06-07 18:50:11 811 Cells/uL F 620.0-3660.0 Neutrophils/100 leukocytes in Blood by Automated count 2024-06-07 18:50:11 79.6 % F Basophils/100 leukocytes in Blood by Automated count 2024-06-07 18:50:11 0.4 % F Lymphocytes/100 leukocytes in Blood by Automated count 2024-06-07 18:50:11 12.9 % F Eosinophils/100 leukocytes in Blood by Automated count 2024-06-07 18:50:11 1.1 % F Monocytes/100 leukocytes in Blood by Automated count 2024-06-07 18:50:11 6.1 % F Leukocytes [#/volume] in Blood by Automated count 2024-06-07 18:50:11 6.3 x 10^3 cells/uL F 4.0-11.0 Neutrophils [#/volume] in Blood by Automated count 2024-06-07 18:50:11 5007 Cells/uL F 2000.0-8800. 0 Lymphocytes [#/volume] in Blood by Automated count 2024-06-07 18:50:11 811 Cells/uL F 620.0-3660.0 Monocytes [#/volume] in Blood by Automated count 2024-06-07 18:50:11 384 Cells/uL F 0.0-1100.0 Basophils [#/volume] in Blood by Automated count 2024-06-07 18:50:11 25 Cells/uL F 0.0-400.0 Eosinophils [#/volume] in Blood by Automated count 2024-06-07 18:50:11 69 Cells/uL F 0.0-700.0 Monocytes/100 leukocytes in Blood by Automated count 2024-06-04 05:30:13 5.8 % F Basophils/100 leukocytes in Blood by Automated count 2024-06-04 05:30:13 0.3 % F Neutrophils/100 leukocytes in Blood by Automated count 2024-06-04 05:30:13 73.9 % F Eosinophils/100 leukocytes in Blood by Automated count 2024-06-04 05:30:13 1.2 % F Lymphocytes/100 leukocytes in Blood by Automated count 2024-06-04 05:30:13 18.7 % F Monocytes [#/volume] in Blood by Automated count 2024-06-04 05:30:13 384 Cells/uL F 0.0-1100.0 Basophils [#/volume] in Blood by Automated count 2024-06-04 05:30:13 20 Cells/uL F 0.0-400.0 Eosinophils [#/volume] in Blood by Automated count 2024-06-04 05:30:13 79 Cells/uL F 0.0-700.0 Neutrophils [#/volume] in Blood by Automated count 2024-06-04 05:30:13 4892 Cells/uL F 2000.0-8800. 0 Leukocytes [#/volume] in Blood by Automated count 2024-06-04 05:30:13 6.6 x 10^3 cells/uL F 4.0-11.0 Lymphocytes [#/volume] in Blood by Automated count 2024-06-04 05:30:13 1238 Cells/uL F 620.0-3660.0 Neutrophils/100 leukocytes in Blood by Automated count 2024-06-04 05:30:13 73.9 % F Basophils/100 leukocytes in Blood by Automated count 2024-06-04 05:30:13 0.3 % F Lymphocytes/100 leukocytes in Blood by Automated count 2024-06-04 05:30:13 18.7 % F Monocytes/100 leukocytes in Blood by Automated count 2024-06-04 05:30:13 5.8 % F Eosinophils/100 leukocytes in Blood by Automated count 2024-06-04 05:30:13 1.2 % F Leukocytes [#/volume] in Blood by Automated count 2024-06-04 05:30:13 6.6 x 10^3 cells/uL F 4.0-11.0 Lymphocytes [#/volume] in Blood by Automated count 2024-06-04 05:30:13 1238 Cells/uL F 620.0-3660.0 Monocytes [#/volume] in Blood by Automated count 2024-06-04 05:30:13 384 Cells/uL F 0.0-1100.0 Neutrophils [#/volume] in Blood by Automated count 2024-06-04 05:30:13 4892 Cells/uL F 2000.0-8800. 0 Basophils [#/volume] in Blood by Automated count 2024-06-04 05:30:13 20 Cells/uL F 0.0-400.0 Eosinophils [#/volume] in Blood by Automated count 2024-06-04 05:30:13 79 Cells/uL F 0.0-700.0 Basophils/100 leukocytes in Blood by Automated count 2024-05-06 13:02:10 0.4 % F Monocytes/100 leukocytes in Blood by Automated count 2024-05-06 13:02:10 6.9 % F Eosinophils/100 leukocytes in Blood by Automated count 2024-05-06 13:02:10 1.9 % F Lymphocytes/100 leukocytes in Blood by Automated count 2024-05-06 13:02:10 25.8 % F Basophils [#/volume] in Blood by Automated count 2024-05-06 13:02:10 24 Cells/uL F 0.0-400.0 Eosinophils [#/volume] in Blood by Automated count 2024-05-06 13:02:10 116 Cells/uL F 0.0-700.0 Monocytes [#/volume] in Blood by Automated count 2024-05-06 13:02:10 420 Cells/uL F 0.0-1100.0 Neutrophils [#/volume] in Blood by Automated count 2024-05-06 13:02:10 3952 Cells/uL F 2000.0-8800. 0 Lymphocytes [#/volume] in Blood by Automated count 2024-05-06 13:02:10 1571 Cells/uL F 620.0-3660.0 Neutrophils/100 leukocytes in Blood by Automated count 2024-05-06 13:02:09 64.9 % F Leukocytes [#/volume] in Blood by Automated count 2024-05-06 13:02:09 6.1 x 10^3 cells/uL F 4.0-11.0 Lymphocytes/100 leukocytes in Blood by Automated count 2024-04-01 18:47:26 28.3 % F Basophils/100 leukocytes in Blood by Automated count 2024-04-01 18:47:26 0.6 % F Neutrophils/100 leukocytes in Blood by Automated count 2024-04-01 18:47:26 62.9 % F Monocytes [#/volume] in Blood by Automated count 2024-04-01 18:47:26 336 Cell/uL F 0.0-1100.0 Neutrophils [#/volume] in Blood by Automated count 2024-04-01 18:47:26 3202 Cell/uL F 2000.0-8800. 0 Leukocytes [#/volume] in Blood by Automated count 2024-04-01 18:47:26 5.1 x 10^3 cells/uL F 4.0-11.0 Lymphocytes [#/volume] in Blood by Automated count 2024-04-01 18:47:26 1440 Cell/uL F 620.0-3660.0 Basophils/100 leukocytes in Blood by Automated count 2024-04-01 18:47:26 0.6 % F Neutrophils/100 leukocytes in Blood by Automated count 2024-04-01 18:47:26 62.9 % F Lymphocytes/100 leukocytes in Blood by Automated count 2024-04-01 18:47:26 28.3 % F Monocytes [#/volume] in Blood by Automated count 2024-04-01 18:47:26 336 Cell/uL F 0.0-1100.0 Neutrophils [#/volume] in Blood by Automated count 2024-04-01 18:47:26 3202 Cell/uL F 2000.0-8800. 0 Leukocytes [#/volume] in Blood by Automated count 2024-04-01 18:47:26 5.1 x 10^3 cells/uL F 4.0-11.0 Lymphocytes [#/volume] in Blood by Automated count 2024-04-01 18:47:26 1440 Cell/uL F 620.0-3660.0 Monocytes/100 leukocytes in Blood by Automated count 2024-04-01 18:47:24 6.6 % F Eosinophils/100 leukocytes in Blood by Automated count 2024-04-01 18:47:24 1.6 % F Basophils [#/volume] in Blood by Automated count 2024-04-01 18:47:24 31 Cell/uL F 0.0-400.0 Eosinophils [#/volume] in Blood by Automated count 2024-04-01 18:47:24 81 Cell/uL F 0.0-700.0 Monocytes/100 leukocytes in Blood by Automated count 2024-04-01 18:47:24 6.6 % F Eosinophils/100 leukocytes in Blood by Automated count 2024-04-01 18:47:24 1.6 % F Eosinophils [#/volume] in Blood by Automated count 2024-04-01 18:47:24 81 Cell/uL F 0.0-700.0 Basophils [#/volume] in Blood by Automated count 2024-04-01 18:47:24 31 Cell/uL F 0.0-400.0 Monocytes/100 leukocytes in Blood by Automated count 2024-03-05 01:13:27 6 % F Basophils/100 leukocytes in Blood by Automated count 2024-03-05 01:13:27 0.8 % F Neutrophils/100 leukocytes in Blood by Automated count 2024-03-05 01:13:27 71.4 % F Eosinophils/100 leukocytes in Blood by Automated count 2024-03-05 01:13:27 1.1 % F Lymphocytes/100 leukocytes in Blood by Automated count 2024-03-05 01:13:27 20.6 % F Monocytes [#/volume] in Blood by Automated count 2024-03-05 01:13:27 399 Cell/uL F 0.0-1100.0 Eosinophils [#/volume] in Blood by Automated count 2024-03-05 01:13:27 73 Cell/uL F 0.0-700.0 Basophils [#/volume] in Blood by Automated count 2024-03-05 01:13:27 53 Cell/uL F 0.0-400.0 Neutrophils [#/volume] in Blood by Automated count 2024-03-05 01:13:27 4748 Cell/uL F 2000.0-8800. 0 Leukocytes [#/volume] in Blood by Automated count 2024-03-05 01:13:27 6.6 x 10^3 cells/uL F 4.0-11.0 Lymphocytes [#/volume] in Blood by Automated count 2024-03-05 01:13:27 1370 Cell/uL F 620.0-3660.0 Basophils/100 leukocytes in Blood by Automated count 2024-03-05 01:13:27 0.8 % F Monocytes/100 leukocytes in Blood by Automated count 2024-03-05 01:13:27 6 % F Neutrophils/100 leukocytes in Blood by Automated count 2024-03-05 01:13:27 71.4 % F Eosinophils/100 leukocytes in Blood by Automated count 2024-03-05 01:13:27 1.1 % F Monocytes [#/volume] in Blood by Automated count 2024-03-05 01:13:27 399 Cell/uL F 0.0-1100.0 Basophils [#/volume] in Blood by Automated count 2024-03-05 01:13:27 53 Cell/uL F 0.0-400.0 Eosinophils [#/volume] in Blood by Automated count 2024-03-05 01:13:27 73 Cell/uL F 0.0-700.0 Lymphocytes/100 leukocytes in Blood by Automated count 2024-03-05 01:13:27 20.6 % F Neutrophils [#/volume] in Blood by Automated count 2024-03-05 01:13:27 4748 Cell/uL F 2000.0-8800. 0 Leukocytes [#/volume] in Blood by Automated count 2024-03-05 01:13:27 6.6 x 10^3 cells/uL F 4.0-11.0 Lymphocytes [#/volume] in Blood by Automated count 2024-03-05 01:13:27 1370 Cell/uL F 620.0-3660.0 Basophils/100 leukocytes in Blood by Automated count 2024-01-30 05:13:33 0.7 % F Neutrophils/100 leukocytes in Blood by Automated count 2024-01-30 05:13:33 72.6 % F Lymphocytes/100 leukocytes in Blood by Automated count 2024-01-30 05:13:33 19.3 % F Monocytes/100 leukocytes in Blood by Automated count 2024-01-30 05:13:33 6 % F Eosinophils/100 leukocytes in Blood by Automated count 2024-01-30 05:13:33 1.4 % F Leukocytes [#/volume] in Blood by Automated count 2024-01-30 05:13:33 6.9 x 10^3 cells/uL F 4.0-11.0 Neutrophils [#/volume] in Blood by Automated count 2024-01-30 05:13:33 4995 Cell/uL F 2000.0-8800. 0 Lymphocytes [#/volume] in Blood by Automated count 2024-01-30 05:13:33 1328 Cell/uL F 620.0-3660.0 Monocytes [#/volume] in Blood by Automated count 2024-01-30 05:13:33 413 Cell/uL F 0.0-1100.0 Basophils [#/volume] in Blood by Automated count 2024-01-30 05:13:33 48 Cell/uL F 0.0-400.0 Eosinophils [#/volume] in Blood by Automated count 2024-01-30 05:13:33 96 Cell/uL F 0.0-700.0 Lymphocytes/100 leukocytes in Blood by Automated count 2024-01-30 05:13:33 19.3 % F Eosinophils/100 leukocytes in Blood by Automated count 2024-01-30 05:13:33 1.4 % F Monocytes/100 leukocytes in Blood by Automated count 2024-01-30 05:13:33 6 % F Basophils/100 leukocytes in Blood by Automated count 2024-01-30 05:13:33 0.7 % F Neutrophils/100 leukocytes in Blood by Automated count 2024-01-30 05:13:33 72.6 % F Monocytes [#/volume] in Blood by Automated count 2024-01-30 05:13:33 413 Cell/uL F 0.0-1100.0 Basophils [#/volume] in Blood by Automated count 2024-01-30 05:13:33 48 Cell/uL F 0.0-400.0 Eosinophils [#/volume] in Blood by Automated count 2024-01-30 05:13:33 96 Cell/uL F 0.0-700.0 Neutrophils [#/volume] in Blood by Automated count 2024-01-30 05:13:33 4995 Cell/uL F 2000.0-8800. 0 Leukocytes [#/volume] in Blood by Automated count 2024-01-30 05:13:33 6.9 x 10^3 cells/uL F 4.0-11.0 Lymphocytes [#/volume] in Blood by Automated count 2024-01-30 05:13:33 1328 Cell/uL F 620.0-3660.0 Basophils/100 leukocytes in Blood by Automated count 2024-01-02 06:54:31 1 % F Lymphocytes/100 leukocytes in Blood by Automated count 2024-01-02 06:54:31 26.1 % F Eosinophils/100 leukocytes in Blood by Automated count 2024-01-02 06:54:31 1.5 % F Neutrophils/100 leukocytes in Blood by Automated count 2024-01-02 06:54:31 65.9 % F Monocytes/100 leukocytes in Blood by Automated count 2024-01-02 06:54:31 5.6 % F Monocytes [#/volume] in Blood by Automated count 2024-01-02 06:54:31 283 Cell/uL F 0.0-1100.0 Basophils [#/volume] in Blood by Automated count 2024-01-02 06:54:31 51 Cell/uL F 0.0-400.0 Eosinophils [#/volume] in Blood by Automated count 2024-01-02 06:54:31 76 Cell/uL F 0.0-700.0 Neutrophils [#/volume] in Blood by Automated count 2024-01-02 06:54:31 3335 Cell/uL F 2000.0-8800. 0 Leukocytes [#/volume] in Blood by Automated count 2024-01-02 06:54:31 5.1 x 10^3 cells/uL F 4.0-11.0 Lymphocytes [#/volume] in Blood by Automated count 2024-01-02 06:54:31 1321 Cell/uL F 620.0-3660.0 Eosinophils/100 leukocytes in Blood by Automated count 2024-01-02 06:54:31 1.5 % F Lymphocytes/100 leukocytes in Blood by Automated count 2024-01-02 06:54:31 26.1 % F Neutrophils/100 leukocytes in Blood by Automated count 2024-01-02 06:54:31 65.9 % F Basophils/100 leukocytes in Blood by Automated count 2024-01-02 06:54:31 1 % F Basophils [#/volume] in Blood by Automated count 2024-01-02 06:54:31 51 Cell/uL F 0.0-400.0 Monocytes/100 leukocytes in Blood by Automated count 2024-01-02 06:54:31 5.6 % F Monocytes [#/volume] in Blood by Automated count 2024-01-02 06:54:31 283 Cell/uL F 0.0-1100.0 Eosinophils [#/volume] in Blood by Automated count 2024-01-02 06:54:31 76 Cell/uL F 0.0-700.0 Neutrophils [#/volume] in Blood by Automated count 2024-01-02 06:54:31 3335 Cell/uL F 2000.0-8800. 0 Leukocytes [#/volume] in Blood by Automated count 2024-01-02 06:54:31 5.1 x 10^3 cells/uL F 4.0-11.0 Lymphocytes [#/volume] in Blood by Automated count 2024-01-02 06:54:31 1321 Cell/uL F 620.0-3660.0 Basophils [#/volume] in Blood by Automated count 2023-12-11 07:20:46 F Canceled - Specimen not received 5 days past draw date Neutrophils [#/volume] in Blood by Automated count 2023-12-11 07:20:46 F Canceled - Specimen not received 5 days past draw date Eosinophils [#/volume] in Blood by Automated count 2023-12-11 07:20:46 F Canceled - Specimen not received 5 days past draw date Lymphocytes [#/volume] in Blood by Automated count 2023-12-11 07:20:46 F Canceled - Specimen not received 5 days past draw date Monocytes [#/volume] in Blood by Automated count 2023-12-11 07:20:46 F Canceled - Specimen not received 5 days past draw date Basophils [#/volume] in Blood by Automated count 2023-12-11 07:20:46 F Canceled - Specimen not received 5 days past draw date Neutrophils [#/volume] in Blood by Automated count 2023-12-11 07:20:46 F Canceled - Specimen not received 5 days past draw date Eosinophils [#/volume] in Blood by Automated count 2023-12-11 07:20:46 F Canceled - Specimen not received 5 days past draw date Lymphocytes [#/volume] in Blood by Automated count 2023-12-11 07:20:46 F Canceled - Specimen not received 5 days past draw date Monocytes [#/volume] in Blood by Automated count 2023-12-11 07:20:46 F Canceled - Specimen not received 5 days past draw date Neutrophils [#/volume] in Blood by Automated count 2023-12-11 07:20:46 F Canceled - Specimen not received 5 days past draw date Monocytes [#/volume] in Blood by Automated count 2023-12-11 07:20:46 F Canceled - Specimen not received 5 days past draw date Basophils [#/volume] in Blood by Automated count 2023-12-11 07:20:46 F Canceled - Specimen not received 5 days past draw date Eosinophils [#/volume] in Blood by Automated count 2023-12-11 07:20:46 F Canceled - Specimen not received 5 days past draw date Lymphocytes [#/volume] in Blood by Automated count 2023-12-11 07:20:46 F Canceled - Specimen not received 5 days past draw date Eosinophils/100 leukocytes in Blood by Automated count 2023-12-11 07:20:45 F Canceled - Specimen not received 5 days past draw date Neutrophils/100 leukocytes in Blood by Automated count 2023-12-11 07:20:45 F Canceled - Specimen not received 5 days past draw date Basophils/100 leukocytes in Blood by Automated count 2023-12-11 07:20:45 F Canceled - Specimen not received 5 days past draw date Lymphocytes/100 leukocytes in Blood by Automated count 2023-12-11 07:20:45 F Canceled - Specimen not received 5 days past draw date Leukocytes [#/volume] in Blood by Automated count 2023-12-11 07:20:45 F Canceled - Specimen not received 5 days past draw date Monocytes/100 leukocytes in Blood by Automated count 2023-12-11 07:20:45 F Canceled - Specimen not received 5 days past draw date Basophils/100 leukocytes in Blood by Automated count 2023-12-11 07:20:45 F Canceled - Specimen not received 5 days past draw date Eosinophils/100 leukocytes in Blood by Automated count 2023-12-11 07:20:45 F Canceled - Specimen not received 5 days past draw date Neutrophils/100 leukocytes in Blood by Automated count 2023-12-11 07:20:45 F Canceled - Specimen not received 5 days past draw date Leukocytes [#/volume] in Blood by Automated count 2023-12-11 07:20:45 F Canceled - Specimen not received 5 days past draw date Lymphocytes/100 leukocytes in Blood by Automated count 2023-12-11 07:20:45 F Canceled - Specimen not received 5 days past draw date Monocytes/100 leukocytes in Blood by Automated count 2023-12-11 07:20:45 F Canceled - Specimen not received 5 days past draw date Basophils/100 leukocytes in Blood by Automated count 2023-12-11 07:20:45 F Canceled - Specimen not received 5 days past draw date Neutrophils/100 leukocytes in Blood by Automated count 2023-12-11 07:20:45 F Canceled - Specimen not received 5 days past draw date Lymphocytes/100 leukocytes in Blood by Automated count 2023-12-11 07:20:45 F Canceled - Specimen not received 5 days past draw date Monocytes/100 leukocytes in Blood by Automated count 2023-12-11 07:20:45 F Canceled - Specimen not received 5 days past draw date Eosinophils/100 leukocytes in Blood by Automated count 2023-12-11 07:20:45 F Canceled - Specimen not received 5 days past draw date Leukocytes [#/volume] in Blood by Automated count 2023-12-11 07:20:45 F Canceled - Specimen not received 5 days past draw date Eosinophils/100 leukocytes in Blood by Automated count 2023-10-31 02:05:57 1.7 % F Neutrophils/100 leukocytes in Blood by Automated count 2023-10-31 02:05:57 66.9 % F Lymphocytes/100 leukocytes in Blood by Automated count 2023-10-31 02:05:57 24.9 % F Monocytes/100 leukocytes in Blood by Automated count 2023-10-31 02:05:57 5.9 % F Basophils/100 leukocytes in Blood by Automated count 2023-10-31 02:05:57 0.6 % F Monocytes [#/volume] in Blood by Automated count 2023-10-31 02:05:57 326 Cell/uL F 0.0-1100.0 Basophils [#/volume] in Blood by Automated count 2023-10-31 02:05:57 33 Cell/uL F 0.0-400.0 Eosinophils [#/volume] in Blood by Automated count 2023-10-31 02:05:57 94 Cell/uL F 0.0-700.0 Neutrophils [#/volume] in Blood by Automated count 2023-10-31 02:05:57 3700 Cell/uL F 2000.0-8800. 0 Leukocytes [#/volume] in Blood by Automated count 2023-10-31 02:05:57 5.5 x 10^3 cells/uL F 4.0-11.0 Lymphocytes [#/volume] in Blood by Automated count 2023-10-31 02:05:57 1377 Cell/uL F 620.0-3660.0 Lymphocytes/100 leukocytes in Blood by Automated count 2023-10-02 17:18:42 28.1 % F Basophils/100 leukocytes in Blood by Automated count 2023-10-02 17:18:42 0.6 % F Neutrophils/100 leukocytes in Blood by Automated count 2023-10-02 17:18:42 63.6 % F Monocytes/100 leukocytes in Blood by Automated count 2023-10-02 17:18:42 6.2 % F Leukocytes [#/volume] in Blood by Automated count 2023-10-02 17:18:42 5.9 x 10^3 cells/uL F 4.0-11.0 Eosinophils/100 leukocytes in Blood by Automated count 2023-10-02 17:18:42 1.5 % F Lymphocytes [#/volume] in Blood by Automated count 2023-10-02 17:18:42 1669 Cell/uL F 620.0-3660.0 Neutrophils [#/volume] in Blood by Automated count 2023-10-02 17:18:42 3778 Cell/uL F 2000.0-8800. 0 Monocytes [#/volume] in Blood by Automated count 2023-10-02 17:18:42 368 Cell/uL F 0.0-1100.0 Eosinophils [#/volume] in Blood by Automated count 2023-10-02 17:18:42 89 Cell/uL F 0.0-700.0 Basophils [#/volume] in Blood by Automated count 2023-10-02 17:18:42 36 Cell/uL F 0.0-400.0 Basophils/100 leukocytes in Blood by Automated count 2023-10-02 17:18:42 0.6 % F Lymphocytes/100 leukocytes in Blood by Automated count 2023-10-02 17:18:42 28.1 % F Monocytes/100 leukocytes in Blood by Automated count 2023-10-02 17:18:42 6.2 % F Neutrophils/100 leukocytes in Blood by Automated count 2023-10-02 17:18:42 63.6 % F Eosinophils/100 leukocytes in Blood by Automated count 2023-10-02 17:18:42 1.5 % F Leukocytes [#/volume] in Blood by Automated count 2023-10-02 17:18:42 5.9 x 10^3 cells/uL F 4.0-11.0 Neutrophils [#/volume] in Blood by Automated count 2023-10-02 17:18:42 3778 Cell/uL F 2000.0-8800. 0 Monocytes [#/volume] in Blood by Automated count 2023-10-02 17:18:42 368 Cell/uL F 0.0-1100.0 Lymphocytes [#/volume] in Blood by Automated count 2023-10-02 17:18:42 1669 Cell/uL F 620.0-3660.0 Basophils [#/volume] in Blood by Automated count 2023-10-02 17:18:42 36 Cell/uL F 0.0-400.0 Eosinophils [#/volume] in Blood by Automated count 2023-10-02 17:18:42 89 Cell/uL F 0.0-700.0 Basophils/100 leukocytes in Blood by Automated count 2023-10-02 17:18:42 0.6 % F Lymphocytes/100 leukocytes in Blood by Automated count 2023-10-02 17:18:42 28.1 % F Eosinophils/100 leukocytes in Blood by Automated count 2023-10-02 17:18:42 1.5 % F Neutrophils/100 leukocytes in Blood by Automated count 2023-10-02 17:18:42 63.6 % F Monocytes [#/volume] in Blood by Automated count 2023-10-02 17:18:42 368 Cell/uL F 0.0-1100.0 Monocytes/100 leukocytes in Blood by Automated count 2023-10-02 17:18:42 6.2 % F Basophils [#/volume] in Blood by Automated count 2023-10-02 17:18:42 36 Cell/uL F 0.0-400.0 Eosinophils [#/volume] in Blood by Automated count 2023-10-02 17:18:42 89 Cell/uL F 0.0-700.0 Neutrophils [#/volume] in Blood by Automated count 2023-10-02 17:18:42 3778 Cell/uL F 2000.0-8800. 0 Leukocytes [#/volume] in Blood by Automated count 2023-10-02 17:18:42 5.9 x 10^3 cells/uL F 4.0-11.0 Lymphocytes [#/volume] in Blood by Automated count 2023-10-02 17:18:42 1669 Cell/uL F 620.0-3660.0 Basophils/100 leukocytes in Blood by Automated count 2023-09-05 02:42:06 1.2 % F Neutrophils/100 leukocytes in Blood by Automated count 2023-09-05 02:42:06 67.9 % F Monocytes/100 leukocytes in Blood by Automated count 2023-09-05 02:42:06 5.2 % F Eosinophils/100 leukocytes in Blood by Automated count 2023-09-05 02:42:06 2.2 % F Neutrophils [#/volume] in Blood by Automated count 2023-09-05 02:42:06 3565 Cell/uL F 2000.0-8800. 0 Eosinophils [#/volume] in Blood by Automated count 2023-09-05 02:42:06 116 Cell/uL F 0.0-700.0 Basophils [#/volume] in Blood by Automated count 2023-09-05 02:42:06 63 Cell/uL F 0.0-400.0 Monocytes [#/volume] in Blood by Automated count 2023-09-05 02:42:06 273 Cell/uL F 0.0-1100.0 Basophils/100 leukocytes in Blood by Automated count 2023-09-05 02:42:06 1.2 % F Neutrophils/100 leukocytes in Blood by Automated count 2023-09-05 02:42:06 67.9 % F Monocytes/100 leukocytes in Blood by Automated count 2023-09-05 02:42:06 5.2 % F Eosinophils/100 leukocytes in Blood by Automated count 2023-09-05 02:42:06 2.2 % F Neutrophils [#/volume] in Blood by Automated count 2023-09-05 02:42:06 3565 Cell/uL F 2000.0-8800. 0 Basophils [#/volume] in Blood by Automated count 2023-09-05 02:42:06 63 Cell/uL F 0.0-400.0 Eosinophils [#/volume] in Blood by Automated count 2023-09-05 02:42:06 116 Cell/uL F 0.0-700.0 Monocytes [#/volume] in Blood by Automated count 2023-09-05 02:42:06 273 Cell/uL F 0.0-1100.0 Basophils/100 leukocytes in Blood by Automated count 2023-09-05 02:42:06 1.2 % F Eosinophils/100 leukocytes in Blood by Automated count 2023-09-05 02:42:06 2.2 % F Neutrophils/100 leukocytes in Blood by Automated count 2023-09-05 02:42:06 67.9 % F Monocytes/100 leukocytes in Blood by Automated count 2023-09-05 02:42:06 5.2 % F Monocytes [#/volume] in Blood by Automated count 2023-09-05 02:42:06 273 Cell/uL F 0.0-1100.0 Basophils [#/volume] in Blood by Automated count 2023-09-05 02:42:06 63 Cell/uL F 0.0-400.0 Eosinophils [#/volume] in Blood by Automated count 2023-09-05 02:42:06 116 Cell/uL F 0.0-700.0 Neutrophils [#/volume] in Blood by Automated count 2023-09-05 02:42:06 3565 Cell/uL F 2000.0-8800. 0 Lymphocytes/100 leukocytes in Blood by Automated count 2023-09-05 02:41:58 23.5 % F Leukocytes [#/volume] in Blood by Automated count 2023-09-05 02:41:58 5.2 x 10^3 cells/uL F 4.0-11.0 Lymphocytes [#/volume] in Blood by Automated count 2023-09-05 02:41:58 1234 Cell/uL F 620.0-3660.0 Lymphocytes/100 leukocytes in Blood by Automated count 2023-09-05 02:41:58 23.5 % F Leukocytes [#/volume] in Blood by Automated count 2023-09-05 02:41:58 5.2 x 10^3 cells/uL F 4.0-11.0 Lymphocytes [#/volume] in Blood by Automated count 2023-09-05 02:41:58 1234 Cell/uL F 620.0-3660.0 Lymphocytes/100 leukocytes in Blood by Automated count 2023-09-05 02:41:58 23.5 % F Leukocytes [#/volume] in Blood by Automated count 2023-09-05 02:41:58 5.2 x 10^3 cells/uL F 4.0-11.0 Lymphocytes [#/volume] in Blood by Automated count 2023-09-05 02:41:58 1234 Cell/uL F 620.0-3660.0 Lymphocytes [#/volume] in Blood by Automated count 2023-08-03 00:51:49 F Recollect - Labeling Error,received sst for lav 31 Neutrophils [#/volume] in Blood by Automated count 2023-08-03 00:51:49 F Recollect - Labeling Error,received sst for lav 31 Eosinophils [#/volume] in Blood by Automated count 2023-08-03 00:51:49 F Recollect - Labeling Error,received sst for lav 31 Monocytes [#/volume] in Blood by Automated count 2023-08-03 00:51:49 F Recollect - Labeling Error,received sst for lav 31 Lymphocytes [#/volume] in Blood by Automated count 2023-08-03 00:51:49 F Recollect - Labeling Error,received sst for lav 31 Eosinophils [#/volume] in Blood by Automated count 2023-08-03 00:51:49 F Recollect - Labeling Error,received sst for lav 31 Basophils [#/volume] in Blood by Automated count 2023-08-03 00:51:49 F Recollect - Labeling Error,received sst for lav 31 Neutrophils [#/volume] in Blood by Automated count 2023-08-03 00:51:49 F Recollect - Labeling Error,received sst for lav 31 Monocytes [#/volume] in Blood by Automated count 2023-08-03 00:51:49 F Recollect - Labeling Error,received sst for lav 31 Lymphocytes [#/volume] in Blood by Automated count 2023-08-03 00:51:49 F Recollect - Labeling Error,received sst for lav 31 Basophils [#/volume] in Blood by Automated count 2023-08-03 00:51:49 F Recollect - Labeling Error,received sst for lav 31 Eosinophils [#/volume] in Blood by Automated count 2023-08-03 00:51:49 F Recollect - Labeling Error,received sst for lav 31 Neutrophils [#/volume] in Blood by Automated count 2023-08-03 00:51:49 F Recollect - Labeling Error,received sst for lav 31 Monocytes [#/volume] in Blood by Automated count 2023-08-03 00:51:49 F Recollect - Labeling Error,received sst for lav 31 Basophils [#/volume] in Blood by Automated count 2023-08-03 00:51:49 F Recollect - Labeling Error,received sst for lav 31 Leukocytes [#/volume] in Blood by Automated count 2023-08-03 00:51:47 F Recollect - Labeling Error,received sst for lav 31 Eosinophils/100 leukocytes in Blood by Automated count 2023-08-03 00:51:47 F Recollect - Labeling Error,received sst for lav 31 Eosinophils/100 leukocytes in Blood by Automated count 2023-08-03 00:51:47 F Recollect - Labeling Error,received sst for lav 31 Leukocytes [#/volume] in Blood by Automated count 2023-08-03 00:51:47 F Recollect - Labeling Error,received sst for lav 31 Monocytes/100 leukocytes in Blood by Automated count 2023-08-03 00:51:47 F Recollect - Labeling Error,received sst for lav 31 Monocytes/100 leukocytes in Blood by Automated count 2023-08-03 00:51:47 F Recollect - Labeling Error,received sst for lav 31 Eosinophils/100 leukocytes in Blood by Automated count 2023-08-03 00:51:47 F Recollect - Labeling Error,received sst for lav 31 Leukocytes [#/volume] in Blood by Automated count 2023-08-03 00:51:47 F Recollect - Labeling Error,received sst for lav 31 Monocytes/100 leukocytes in Blood by Automated count 2023-08-03 00:51:47 F Recollect - Labeling Error,received sst for lav 31 Basophils/100 leukocytes in Blood by Automated count 2023-08-03 00:51:46 F Recollect - Labeling Error,received sst for lav 31 Lymphocytes/100 leukocytes in Blood by Automated count 2023-08-03 00:51:46 F Recollect - Labeling Error,received sst for lav 31 Neutrophils/100 leukocytes in Blood by Automated count 2023-08-03 00:51:46 F Recollect - Labeling Error,received sst for lav 31 Basophils/100 leukocytes in Blood by Automated count 2023-08-03 00:51:46 F Recollect - Labeling Error,received sst for lav 31 Lymphocytes/100 leukocytes in Blood by Automated count 2023-08-03 00:51:46 F Recollect - Labeling Error,received sst for lav 31 Neutrophils/100 leukocytes in Blood by Automated count 2023-08-03 00:51:46 F Recollect - Labeling Error,received sst for lav 31 Basophils/100 leukocytes in Blood by Automated count 2023-08-03 00:51:46 F Recollect - Labeling Error,received sst for lav 31 Neutrophils/100 leukocytes in Blood by Automated count 2023-08-03 00:51:46 F Recollect - Labeling Error,received sst for lav 31 Lymphocytes/100 leukocytes in Blood by Automated count 2023-08-03 00:51:46 F Recollect - Labeling Error,received sst for lav 31 Leukocytes [#/volume] in Blood by Automated count 2023-07-06 19:13:04 5.8 x 10^3 cells/uL F 4.0-11.0 Leukocytes [#/volume] in Blood by Automated count 2023-07-06 19:13:04 5.8 x 10^3 cells/uL F 4.0-11.0 Leukocytes [#/volume] in Blood by Automated count 2023-07-06 19:13:04 5.8 x 10^3 cells/uL F 4.0-11.0 Lymphocytes/100 leukocytes in Blood by Automated count 2023-07-06 19:13:02 23.8 % F Basophils [#/volume] in Blood by Automated count 2023-07-06 19:13:02 46 Cell/uL F 0.0-400.0 Neutrophils [#/volume] in Blood by Automated count 2023-07-06 19:13:02 3952 Cell/uL F 2000.0-8800. 0 Lymphocytes [#/volume] in Blood by Automated count 2023-07-06 19:13:02 1373 Cell/uL F 620.0-3660.0 Lymphocytes/100 leukocytes in Blood by Automated count 2023-07-06 19:13:02 23.8 % F Basophils [#/volume] in Blood by Automated count 2023-07-06 19:13:02 46 Cell/uL F 0.0-400.0 Neutrophils [#/volume] in Blood by Automated count 2023-07-06 19:13:02 3952 Cell/uL F 2000.0-8800. 0 Lymphocytes [#/volume] in Blood by Automated count 2023-07-06 19:13:02 1373 Cell/uL F 620.0-3660.0 Lymphocytes/100 leukocytes in Blood by Automated count 2023-07-06 19:13:02 23.8 % F Neutrophils [#/volume] in Blood by Automated count 2023-07-06 19:13:02 3952 Cell/uL F 2000.0-8800. 0 Lymphocytes [#/volume] in Blood by Automated count 2023-07-06 19:13:02 1373 Cell/uL F 620.0-3660.0 Basophils [#/volume] in Blood by Automated count 2023-07-06 19:13:02 46 Cell/uL F 0.0-400.0 Basophils/100 leukocytes in Blood by Automated count 2023-07-06 19:13:00 0.8 % F Neutrophils/100 leukocytes in Blood by Automated count 2023-07-06 19:13:00 68.5 % F Monocytes/100 leukocytes in Blood by Automated count 2023-07-06 19:13:00 5.7 % F Eosinophils/100 leukocytes in Blood by Automated count 2023-07-06 19:13:00 1.2 % F Monocytes [#/volume] in Blood by Automated count 2023-07-06 19:13:00 329 Cell/uL F 0.0-1100.0 Eosinophils [#/volume] in Blood by Automated count 2023-07-06 19:13:00 69 Cell/uL F 0.0-700.0 Neutrophils/100 leukocytes in Blood by Automated count 2023-07-06 19:13:00 68.5 % F Monocytes/100 leukocytes in Blood by Automated count 2023-07-06 19:13:00 5.7 % F Basophils/100 leukocytes in Blood by Automated count 2023-07-06 19:13:00 0.8 % F Monocytes [#/volume] in Blood by Automated count 2023-07-06 19:13:00 329 Cell/uL F 0.0-1100.0 Eosinophils/100 leukocytes in Blood by Automated count 2023-07-06 19:13:00 1.2 % F Eosinophils [#/volume] in Blood by Automated count 2023-07-06 19:13:00 69 Cell/uL F 0.0-700.0 Neutrophils/100 leukocytes in Blood by Automated count 2023-07-06 19:13:00 68.5 % F Basophils/100 leukocytes in Blood by Automated count 2023-07-06 19:13:00 0.8 % F Monocytes/100 leukocytes in Blood by Automated count 2023-07-06 19:13:00 5.7 % F Eosinophils/100 leukocytes in Blood by Automated count 2023-07-06 19:13:00 1.2 % F Monocytes [#/volume] in Blood by Automated count 2023-07-06 19:13:00 329 Cell/uL F 0.0-1100.0 Eosinophils [#/volume] in Blood by Automated count 2023-07-06 19:13:00 69 Cell/uL F 0.0-700.0 Basophils/100 leukocytes in Blood by Automated count 2023-06-06 05:29:31 0.5 % F Lymphocytes/100 leukocytes in Blood by Automated count 2023-06-06 05:29:31 19.3 % F Neutrophils/100 leukocytes in Blood by Automated count 2023-06-06 05:29:31 74.1 % F Monocytes/100 leukocytes in Blood by Automated count 2023-06-06 05:29:31 4.6 % F Eosinophils/100 leukocytes in Blood by Automated count 2023-06-06 05:29:31 1.4 % F Leukocytes [#/volume] in Blood by Automated count 2023-06-06 05:29:31 8.2 x 10^3 cells/uL F 4.0-11.0 Neutrophils [#/volume] in Blood by Automated count 2023-06-06 05:29:31 6098 Cell/uL F 2000.0-8800. 0 Monocytes [#/volume] in Blood by Automated count 2023-06-06 05:29:31 379 Cell/uL F 0.0-1100.0 Lymphocytes [#/volume] in Blood by Automated count 2023-06-06 05:29:31 1588 Cell/uL F 620.0-3660.0 Eosinophils [#/volume] in Blood by Automated count 2023-06-06 05:29:31 115 Cell/uL F 0.0-700.0 Basophils [#/volume] in Blood by Automated count 2023-06-06 05:29:31 41 Cell/uL F 0.0-400.0 Monocytes/100 leukocytes in Blood by Automated count 2023-06-06 05:29:31 4.6 % F Eosinophils/100 leukocytes in Blood by Automated count 2023-06-06 05:29:31 1.4 % F Lymphocytes/100 leukocytes in Blood by Automated count 2023-06-06 05:29:31 19.3 % F Neutrophils/100 leukocytes in Blood by Automated count 2023-06-06 05:29:31 74.1 % F Basophils/100 leukocytes in Blood by Automated count 2023-06-06 05:29:31 0.5 % F Monocytes [#/volume] in Blood by Automated count 2023-06-06 05:29:31 379 Cell/uL F 0.0-1100.0 Basophils [#/volume] in Blood by Automated count 2023-06-06 05:29:31 41 Cell/uL F 0.0-400.0 Eosinophils [#/volume] in Blood by Automated count 2023-06-06 05:29:31 115 Cell/uL F 0.0-700.0 Neutrophils [#/volume] in Blood by Automated count 2023-06-06 05:29:31 6098 Cell/uL F 2000.0-8800. 0 Leukocytes [#/volume] in Blood by Automated count 2023-06-06 05:29:31 8.2 x 10^3 cells/uL F 4.0-11.0 Lymphocytes [#/volume] in Blood by Automated count 2023-06-06 05:29:31 1588 Cell/uL F 620.0-3660.0 Eosinophils/100 leukocytes in Blood by Automated count 2023-05-03 15:34:36 1.9 % F Monocytes/100 leukocytes in Blood by Automated count 2023-05-03 15:34:36 6.7 % F Lymphocytes/100 leukocytes in Blood by Automated count 2023-05-03 15:34:36 21.3 % F Neutrophils/100 leukocytes in Blood by Automated count 2023-05-03 15:34:36 69.7 % F Basophils/100 leukocytes in Blood by Automated count 2023-05-03 15:34:36 0.4 % F Monocytes [#/volume] in Blood by Automated count 2023-05-03 15:34:36 480 Cell/uL F 0.0-1100.0 Basophils [#/volume] in Blood by Automated count 2023-05-03 15:34:36 29 Cell/uL F 0.0-400.0 Eosinophils [#/volume] in Blood by Automated count 2023-05-03 15:34:36 136 Cell/uL F 0.0-700.0 Neutrophils [#/volume] in Blood by Automated count 2023-05-03 15:34:36 4997 Cell/uL F 2000.0-8800. 0 Leukocytes [#/volume] in Blood by Automated count 2023-05-03 15:34:36 7.2 x 10^3 cells/uL F 4.0-11.0 Lymphocytes [#/volume] in Blood by Automated count 2023-05-03 15:34:36 1527 Cell/uL F 620.0-3660.0 Eosinophils/100 leukocytes in Blood by Automated count 2023-05-03 15:34:36 1.9 % F Lymphocytes/100 leukocytes in Blood by Automated count 2023-05-03 15:34:36 21.3 % F Monocytes/100 leukocytes in Blood by Automated count 2023-05-03 15:34:36 6.7 % F Neutrophils/100 leukocytes in Blood by Automated count 2023-05-03 15:34:36 69.7 % F Monocytes [#/volume] in Blood by Automated count 2023-05-03 15:34:36 480 Cell/uL F 0.0-1100.0 Basophils/100 leukocytes in Blood by Automated count 2023-05-03 15:34:36 0.4 % F Basophils [#/volume] in Blood by Automated count 2023-05-03 15:34:36 29 Cell/uL F 0.0-400.0 Eosinophils [#/volume] in Blood by Automated count 2023-05-03 15:34:36 136 Cell/uL F 0.0-700.0 Neutrophils [#/volume] in Blood by Automated count 2023-05-03 15:34:36 4997 Cell/uL F 2000.0-8800. 0 Leukocytes [#/volume] in Blood by Automated count 2023-05-03 15:34:36 7.2 x 10^3 cells/uL F 4.0-11.0 Lymphocytes [#/volume] in Blood by Automated count 2023-05-03 15:34:36 1527 Cell/uL F 620.0-3660.0 Basophils [#/volume] in Blood by Automated count 2023-04-04 02:33:37 32 Cell/uL F 0.0-400.0 Basophils [#/volume] in Blood by Automated count 2023-04-04 02:33:37 32 Cell/uL F 0.0-400.0 Lymphocytes/100 leukocytes in Blood by Automated count 2023-04-04 02:33:34 20.7 % F Eosinophils/100 leukocytes in Blood by Automated count 2023-04-04 02:33:34 1.5 % F Monocytes/100 leukocytes in Blood by Automated count 2023-04-04 02:33:34 5.6 % F Neutrophils/100 leukocytes in Blood by Automated count 2023-04-04 02:33:34 71.6 % F Basophils/100 leukocytes in Blood by Automated count 2023-04-04 02:33:34 0.5 % F Monocytes [#/volume] in Blood by Automated count 2023-04-04 02:33:34 364 Cell/uL F 0.0-1100.0 Eosinophils [#/volume] in Blood by Automated count 2023-04-04 02:33:34 98 Cell/uL F 0.0-700.0 Neutrophils [#/volume] in Blood by Automated count 2023-04-04 02:33:34 4654 Cell/uL F 2000.0-8800. 0 Leukocytes [#/volume] in Blood by Automated count 2023-04-04 02:33:34 6.5 x 10^3 cells/uL F 4.0-11.0 Lymphocytes [#/volume] in Blood by Automated count 2023-04-04 02:33:34 1346 Cell/uL F 620.0-3660.0 Neutrophils/100 leukocytes in Blood by Automated count 2023-04-04 02:33:34 71.6 % F Basophils/100 leukocytes in Blood by Automated count 2023-04-04 02:33:34 0.5 % F Lymphocytes/100 leukocytes in Blood by Automated count 2023-04-04 02:33:34 20.7 % F Eosinophils/100 leukocytes in Blood by Automated count 2023-04-04 02:33:34 1.5 % F Monocytes [#/volume] in Blood by Automated count 2023-04-04 02:33:34 364 Cell/uL F 0.0-1100.0 Monocytes/100 leukocytes in Blood by Automated count 2023-04-04 02:33:34 5.6 % F Eosinophils [#/volume] in Blood by Automated count 2023-04-04 02:33:34 98 Cell/uL F 0.0-700.0 Neutrophils [#/volume] in Blood by Automated count 2023-04-04 02:33:34 4654 Cell/uL F 2000.0-8800. 0 Leukocytes [#/volume] in Blood by Automated count 2023-04-04 02:33:34 6.5 x 10^3 cells/uL F 4.0-11.0 Lymphocytes [#/volume] in Blood by Automated count 2023-04-04 02:33:34 1346 Cell/uL F 620.0-3660.0 Basophils/100 leukocytes in Blood by Automated count 2023-03-06 18:43:30 0.4 % F Neutrophils/100 leukocytes in Blood by Automated count 2023-03-06 18:43:30 70.8 % F Eosinophils/100 leukocytes in Blood by Automated count 2023-03-06 18:43:30 1.4 % F Monocytes/100 leukocytes in Blood by Automated count 2023-03-06 18:43:30 6.3 % F Lymphocytes/100 leukocytes in Blood by Automated count 2023-03-06 18:43:30 21.1 % F Monocytes [#/volume] in Blood by Automated count 2023-03-06 18:43:30 348 Cell/uL F 0.0-1100.0 Basophils [#/volume] in Blood by Automated count 2023-03-06 18:43:30 22 Cell/uL F 0.0-400.0 Eosinophils [#/volume] in Blood by Automated count 2023-03-06 18:43:30 77 Cell/uL F 0.0-700.0 Neutrophils [#/volume] in Blood by Automated count 2023-03-06 18:43:30 3915 Cell/uL F 2000.0-8800. 0 Leukocytes [#/volume] in Blood by Automated count 2023-03-06 18:43:30 5.5 x 10^3 cells/uL F 4.0-11.0 Lymphocytes [#/volume] in Blood by Automated count 2023-03-06 18:43:30 1167 Cell/uL F 620.0-3660.0 Lymphocytes/100 leukocytes in Blood by Automated count 2023-01-30 19:01:24 19.6 % F Lymphocytes [#/volume] in Blood by Automated count 2023-01-30 19:01:24 1445 Cell/uL F 620.0-3660.0 Lymphocytes/100 leukocytes in Blood by Automated count 2023-01-30 19:01:24 19.6 % F Lymphocytes [#/volume] in Blood by Automated count 2023-01-30 19:01:24 1445 Cell/uL F 620.0-3660.0 Basophils/100 leukocytes in Blood by Automated count 2023-01-30 19:01:22 0.4 % F Eosinophils/100 leukocytes in Blood by Automated count 2023-01-30 19:01:22 1.7 % F Neutrophils [#/volume] in Blood by Automated count 2023-01-30 19:01:22 5314 Cell/uL F 2000.0-8800. 0 Basophils/100 leukocytes in Blood by Automated count 2023-01-30 19:01:22 0.4 % F Eosinophils/100 leukocytes in Blood by Automated count 2023-01-30 19:01:22 1.7 % F Neutrophils [#/volume] in Blood by Automated count 2023-01-30 19:01:22 5314 Cell/uL F 2000.0-8800. 0 Neutrophils/100 leukocytes in Blood by Automated count 2023-01-30 19:01:21 72.1 % F Monocytes/100 leukocytes in Blood by Automated count 2023-01-30 19:01:21 6.2 % F Monocytes [#/volume] in Blood by Automated count 2023-01-30 19:01:21 457 Cell/uL F 0.0-1100.0 Basophils [#/volume] in Blood by Automated count 2023-01-30 19:01:21 29 Cell/uL F 0.0-400.0 Eosinophils [#/volume] in Blood by Automated count 2023-01-30 19:01:21 125 Cell/uL F 0.0-700.0 Leukocytes [#/volume] in Blood by Automated count 2023-01-30 19:01:21 7.4 x 10^3 cells/uL F 4.0-11.0 Neutrophils/100 leukocytes in Blood by Automated count 2023-01-30 19:01:21 72.1 % F Monocytes/100 leukocytes in Blood by Automated count 2023-01-30 19:01:21 6.2 % F Monocytes [#/volume] in Blood by Automated count 2023-01-30 19:01:21 457 Cell/uL F 0.0-1100.0 Eosinophils [#/volume] in Blood by Automated count 2023-01-30 19:01:21 125 Cell/uL F 0.0-700.0 Basophils [#/volume] in Blood by Automated count 2023-01-30 19:01:21 29 Cell/uL F 0.0-400.0 Leukocytes [#/volume] in Blood by Automated count 2023-01-30 19:01:21 7.4 x 10^3 cells/uL F 4.0-11.0 Neutrophils/100 leukocytes in Blood by Automated count 2023-01-02 16:41:13 69.8 % F Monocytes/100 leukocytes in Blood by Automated count 2023-01-02 16:41:13 7.2 % F Monocytes [#/volume] in Blood by Automated count 2023-01-02 16:41:13 530 Cell/uL F 0.0-1100.0 Eosinophils [#/volume] in Blood by Automated count 2023-01-02 16:41:13 191 Cell/uL F 0.0-700.0 Neutrophils [#/volume] in Blood by Automated count 2023-01-02 16:41:13 5137 Cell/uL F 2000.0-8800. 0 Basophils/100 leukocytes in Blood by Automated count 2023-01-02 16:41:12 0.3 % F Eosinophils/100 leukocytes in Blood by Automated count 2023-01-02 16:41:12 2.6 % F Lymphocytes/100 leukocytes in Blood by Automated count 2023-01-02 16:41:12 20.1 % F Basophils [#/volume] in Blood by Automated count 2023-01-02 16:41:12 22 Cell/uL F 0.0-400.0 Leukocytes [#/volume] in Blood by Automated count 2023-01-02 16:41:12 7.4 x 10^3 cells/uL F 4.0-11.0 Lymphocytes [#/volume] in Blood by Automated count 2023-01-02 16:41:12 1479 Cell/uL F 620.0-3660.0 Monocytes/100 leukocytes in Blood by Automated count 2022-11-28 20:54:12 4.6 % F Eosinophils/100 leukocytes in Blood by Automated count 2022-11-28 20:54:12 2.5 % F Basophils/100 leukocytes in Blood by Automated count 2022-11-28 20:54:12 0.2 % F Lymphocytes/100 leukocytes in Blood by Automated count 2022-11-28 20:54:12 24.2 % F Neutrophils/100 leukocytes in Blood by Automated count 2022-11-28 20:54:12 68.5 % F Monocytes [#/volume] in Blood by Automated count 2022-11-28 20:54:12 270.48 Cell/uL F 0.0-1100.0 Eosinophils [#/volume] in Blood by Automated count 2022-11-28 20:54:12 147 Cell/uL F 0.0-700.0 Basophils [#/volume] in Blood by Automated count 2022-11-28 20:54:12 11.76 Cell/uL F 0.0-400.0 Lymphocytes [#/volume] in Blood by Automated count 2022-11-28 20:54:12 1422.96 Cell/uL F 1100.0-4800. 0 Neutrophils [#/volume] in Blood by Automated count 2022-11-28 20:54:12 4027.8 Cell/uL F 2000.0-8800. 0 Eosinophils/100 leukocytes in Blood by Automated count 2022-11-28 20:54:12 2.5 % F Monocytes/100 leukocytes in Blood by Automated count 2022-11-28 20:54:12 4.6 % F Neutrophils/100 leukocytes in Blood by Automated count 2022-11-28 20:54:12 68.5 % F Monocytes [#/volume] in Blood by Automated count 2022-11-28 20:54:12 270.48 Cell/uL F 0.0-1100.0 Basophils/100 leukocytes in Blood by Automated count 2022-11-28 20:54:12 0.2 % F Lymphocytes/100 leukocytes in Blood by Automated count 2022-11-28 20:54:12 24.2 % F Basophils [#/volume] in Blood by Automated count 2022-11-28 20:54:12 11.76 Cell/uL F 0.0-400.0 Eosinophils [#/volume] in Blood by Automated count 2022-11-28 20:54:12 147 Cell/uL F 0.0-700.0 Lymphocytes [#/volume] in Blood by Automated count 2022-11-28 20:54:12 1422.96 Cell/uL F 1100.0-4800. 0 Neutrophils [#/volume] in Blood by Automated count 2022-11-28 20:54:12 4027.8 Cell/uL F 2000.0-8800. 0 Leukocytes [#/volume] in Blood by Automated count 2022-11-28 20:54:10 5.9 x 10^3 cells/uL F 4.5-11.0 Leukocytes [#/volume] in Blood by Automated count 2022-11-28 20:54:10 5.9 x 10^3 cells/uL F 4.5-11.0 Basophils/100 leukocytes in Blood by Automated count 2022-10-11 07:08:10 1.1 % F Monocytes/100 leukocytes in Blood by Automated count 2022-10-11 07:08:10 6.7 % F Neutrophils/100 leukocytes in Blood by Automated count 2022-10-11 07:08:10 66.5 % F Eosinophils/100 leukocytes in Blood by Automated count 2022-10-11 07:08:10 3.7 % F Lymphocytes/100 leukocytes in Blood by Automated count 2022-10-11 07:08:10 22 % F Monocytes [#/volume] in Blood by Automated count 2022-10-11 07:08:10 391.95 Cell/uL F 0.0-1100.0 Basophils [#/volume] in Blood by Automated count 2022-10-11 07:08:10 64.35 Cell/uL F 0.0-400.0 Eosinophils [#/volume] in Blood by Automated count 2022-10-11 07:08:10 216.45 Cell/uL F 0.0-700.0 Lymphocytes [#/volume] in Blood by Automated count 2022-10-11 07:08:10 1287 Cell/uL F 1100.0-4800. 0 Neutrophils [#/volume] in Blood by Automated count 2022-10-11 07:08:10 3890.25 Cell/uL F 2000.0-8800. 0 Leukocytes [#/volume] in Blood by Automated count 2022-10-11 07:08:10 5.8 x 10^3 cells/uL F 4.5-11.0 Basophils/100 leukocytes in Blood by Automated count 2022-10-11 07:08:10 1.1 % F Neutrophils/100 leukocytes in Blood by Automated count 2022-10-11 07:08:10 66.5 % F Monocytes/100 leukocytes in Blood by Automated count 2022-10-11 07:08:10 6.7 % F Eosinophils/100 leukocytes in Blood by Automated count 2022-10-11 07:08:10 3.7 % F Lymphocytes/100 leukocytes in Blood by Automated count 2022-10-11 07:08:10 22 % F Monocytes [#/volume] in Blood by Automated count 2022-10-11 07:08:10 391.95 Cell/uL F 0.0-1100.0 Eosinophils [#/volume] in Blood by Automated count 2022-10-11 07:08:10 216.45 Cell/uL F 0.0-700.0 Basophils [#/volume] in Blood by Automated count 2022-10-11 07:08:10 64.35 Cell/uL F 0.0-400.0 Lymphocytes [#/volume] in Blood by Automated count 2022-10-11 07:08:10 1287 Cell/uL F 1100.0-4800. 0 Neutrophils [#/volume] in Blood by Automated count 2022-10-11 07:08:10 3890.25 Cell/uL F 2000.0-8800. 0 Leukocytes [#/volume] in Blood by Automated count 2022-10-11 07:08:10 5.8 x 10^3 cells/uL F 4.5-11.0 Basophils/100 leukocytes in Blood by Automated count 2022-10-11 07:08:10 1.1 % F Lymphocytes/100 leukocytes in Blood by Automated count 2022-10-11 07:08:10 22 % F Neutrophils/100 leukocytes in Blood by Automated count 2022-10-11 07:08:10 66.5 % F Monocytes/100 leukocytes in Blood by Automated count 2022-10-11 07:08:10 6.7 % F Eosinophils/100 leukocytes in Blood by Automated count 2022-10-11 07:08:10 3.7 % F Leukocytes [#/volume] in Blood by Automated count 2022-10-11 07:08:10 5.8 x 10^3 cells/uL F 4.5-11.0 Neutrophils [#/volume] in Blood by Automated count 2022-10-11 07:08:10 3890.25 Cell/uL F 2000.0-8800. 0 Lymphocytes [#/volume] in Blood by Automated count 2022-10-11 07:08:10 1287 Cell/uL F 1100.0-4800. 0 Monocytes [#/volume] in Blood by Automated count 2022-10-11 07:08:10 391.95 Cell/uL F 0.0-1100.0 Basophils [#/volume] in Blood by Automated count 2022-10-11 07:08:10 64.35 Cell/uL F 0.0-400.0 Eosinophils [#/volume] in Blood by Automated count 2022-10-11 07:08:10 216.45 Cell/uL F 0.0-700.0 Monocytes/100 leukocytes in Blood by Automated count 2022-09-28 19:35:21 7.3 % F Lymphocytes/100 leukocytes in Blood by Automated count 2022-09-28 19:35:21 25.3 % F Basophils/100 leukocytes in Blood by Automated count 2022-09-28 19:35:21 0.3 % F Eosinophils/100 leukocytes in Blood by Automated count 2022-09-28 19:35:21 1.8 % F Neutrophils/100 leukocytes in Blood by Automated count 2022-09-28 19:35:21 65.3 % F Monocytes [#/volume] in Blood by Automated count 2022-09-28 19:35:21 400.77 Cell/uL F 0.0-1100.0 Basophils [#/volume] in Blood by Automated count 2022-09-28 19:35:21 16.47 Cell/uL F 0.0-400.0 Eosinophils [#/volume] in Blood by Automated count 2022-09-28 19:35:21 98.82 Cell/uL F 0.0-700.0 Lymphocytes [#/volume] in Blood by Automated count 2022-09-28 19:35:21 1388.97 Cell/uL F 1100.0-4800. 0 Neutrophils [#/volume] in Blood by Automated count 2022-09-28 19:35:21 3584.97 Cell/uL F 2000.0-8800. 0 Leukocytes [#/volume] in Blood by Automated count 2022-09-28 19:35:21 5.5 x 10^3 cells/uL F 4.5-11.0 Neutrophils/100 leukocytes in Blood by Automated count 2022-08-31 16:06:00 68 % F Eosinophils/100 leukocytes in Blood by Automated count 2022-08-31 16:06:00 2.2 % F Basophils/100 leukocytes in Blood by Automated count 2022-08-31 16:06:00 0.1 % F Monocytes/100 leukocytes in Blood by Automated count 2022-08-31 16:06:00 6.2 % F Monocytes [#/volume] in Blood by Automated count 2022-08-31 16:06:00 394.94 Cell/uL F 0.0-1100.0 Basophils [#/volume] in Blood by Automated count 2022-08-31 16:06:00 6.37 Cell/uL F 0.0-400.0 Eosinophils [#/volume] in Blood by Automated count 2022-08-31 16:06:00 140.14 Cell/uL F 0.0-700.0 Lymphocytes [#/volume] in Blood by Automated count 2022-08-31 16:06:00 1496.95 Cell/uL F 1100.0-4800. 0 Neutrophils [#/volume] in Blood by Automated count 2022-08-31 16:06:00 4331.6 Cell/uL F 2000.0-8800. 0 Leukocytes [#/volume] in Blood by Automated count 2022-08-31 16:06:00 6.4 x 10^3 cells/uL F 4.5-11.0 Neutrophils/100 leukocytes in Blood by Automated count 2022-08-31 16:06:00 68 % F Basophils/100 leukocytes in Blood by Automated count 2022-08-31 16:06:00 0.1 % F Monocytes/100 leukocytes in Blood by Automated count 2022-08-31 16:06:00 6.2 % F Basophils [#/volume] in Blood by Automated count 2022-08-31 16:06:00 6.37 Cell/uL F 0.0-400.0 Monocytes [#/volume] in Blood by Automated count 2022-08-31 16:06:00 394.94 Cell/uL F 0.0-1100.0 Eosinophils/100 leukocytes in Blood by Automated count 2022-08-31 16:06:00 2.2 % F Eosinophils [#/volume] in Blood by Automated count 2022-08-31 16:06:00 140.14 Cell/uL F 0.0-700.0 Lymphocytes [#/volume] in Blood by Automated count 2022-08-31 16:06:00 1496.95 Cell/uL F 1100.0-4800. 0 Neutrophils [#/volume] in Blood by Automated count 2022-08-31 16:06:00 4331.6 Cell/uL F 2000.0-8800. 0 Leukocytes [#/volume] in Blood by Automated count 2022-08-31 16:06:00 6.4 x 10^3 cells/uL F 4.5-11.0 Lymphocytes/100 leukocytes in Blood by Automated count 2022-08-31 16:05:59 23.5 % F Lymphocytes/100 leukocytes in Blood by Automated count 2022-08-31 16:05:59 23.5 % F Monocytes/100 leukocytes in Blood by Automated count 2022-07-27 16:21:45 5.5 % F Neutrophils/100 leukocytes in Blood by Automated count 2022-07-27 16:21:45 69.7 % F Lymphocytes/100 leukocytes in Blood by Automated count 2022-07-27 16:21:45 22.7 % F Eosinophils/100 leukocytes in Blood by Automated count 2022-07-27 16:21:45 1.1 % F Basophils/100 leukocytes in Blood by Automated count 2022-07-27 16:21:45 1 % F Eosinophils [#/volume] in Blood by Automated count 2022-07-27 16:21:45 54.78 Cell/uL F 0.0-700.0 Basophils [#/volume] in Blood by Automated count 2022-07-27 16:21:45 49.8 Cell/uL F 0.0-400.0 Monocytes [#/volume] in Blood by Automated count 2022-07-27 16:21:45 273.9 Cell/uL F 0.0-1100.0 Lymphocytes [#/volume] in Blood by Automated count 2022-07-27 16:21:45 1130.46 Cell/uL F 1100.0-4800. 0 Neutrophils [#/volume] in Blood by Automated count 2022-07-27 16:21:45 3471.06 Cell/uL F 2000.0-8800. 0 Leukocytes [#/volume] in Blood by Automated count 2022-07-27 16:21:45 5 x 10^3 cells/uL F 4.5-11.0 Neutrophils/100 leukocytes in Blood by Automated count 2022-07-27 16:21:45 69.7 % F Lymphocytes/100 leukocytes in Blood by Automated count 2022-07-27 16:21:45 22.7 % F Eosinophils/100 leukocytes in Blood by Automated count 2022-07-27 16:21:45 1.1 % F Basophils/100 leukocytes in Blood by Automated count 2022-07-27 16:21:45 1 % F Monocytes/100 leukocytes in Blood by Automated count 2022-07-27 16:21:45 5.5 % F Leukocytes [#/volume] in Blood by Automated count 2022-07-27 16:21:45 5 x 10^3 cells/uL F 4.5-11.0 Neutrophils [#/volume] in Blood by Automated count 2022-07-27 16:21:45 3471.06 Cell/uL F 2000.0-8800. 0 Lymphocytes [#/volume] in Blood by Automated count 2022-07-27 16:21:45 1130.46 Cell/uL F 1100.0-4800. 0 Monocytes [#/volume] in Blood by Automated count 2022-07-27 16:21:45 273.9 Cell/uL F 0.0-1100.0 Basophils [#/volume] in Blood by Automated count 2022-07-27 16:21:45 49.8 Cell/uL F 0.0-400.0 Eosinophils [#/volume] in Blood by Automated count 2022-07-27 16:21:45 54.78 Cell/uL F 0.0-700.0 Neutrophils/100 leukocytes in Blood by Automated count 2022-07-27 16:21:45 69.7 % F Lymphocytes/100 leukocytes in Blood by Automated count 2022-07-27 16:21:45 22.7 % F Basophils/100 leukocytes in Blood by Automated count 2022-07-27 16:21:45 1 % F Monocytes/100 leukocytes in Blood by Automated count 2022-07-27 16:21:45 5.5 % F Eosinophils/100 leukocytes in Blood by Automated count 2022-07-27 16:21:45 1.1 % F Leukocytes [#/volume] in Blood by Automated count 2022-07-27 16:21:45 5 x 10^3 cells/uL F 4.5-11.0 Neutrophils [#/volume] in Blood by Automated count 2022-07-27 16:21:45 3471.06 Cell/uL F 2000.0-8800. 0 Monocytes [#/volume] in Blood by Automated count 2022-07-27 16:21:45 273.9 Cell/uL F 0.0-1100.0 Basophils [#/volume] in Blood by Automated count 2022-07-27 16:21:45 49.8 Cell/uL F 0.0-400.0 Lymphocytes [#/volume] in Blood by Automated count 2022-07-27 16:21:45 1130.46 Cell/uL F 1100.0-4800. 0 Eosinophils [#/volume] in Blood by Automated count 2022-07-27 16:21:45 54.78 Cell/uL F 0.0-700.0 Eosinophils/100 leukocytes in Blood by Automated count 2022-06-29 17:22:46 1.2 % F Lymphocytes/100 leukocytes in Blood by Automated count 2022-06-29 17:22:46 24.9 % F Monocytes/100 leukocytes in Blood by Automated count 2022-06-29 17:22:46 6.5 % F Basophils/100 leukocytes in Blood by Automated count 2022-06-29 17:22:46 0.6 % F Neutrophils/100 leukocytes in Blood by Automated count 2022-06-29 17:22:46 66.8 % F Monocytes [#/volume] in Blood by Automated count 2022-06-29 17:22:46 306.8 Cell/uL F 0.0-1100.0 Basophils [#/volume] in Blood by Automated count 2022-06-29 17:22:46 28.32 Cell/uL F 0.0-400.0 Eosinophils [#/volume] in Blood by Automated count 2022-06-29 17:22:46 56.64 Cell/uL F 0.0-700.0 Lymphocytes [#/volume] in Blood by Automated count 2022-06-29 17:22:46 1175.28 Cell/uL F 1100.0-4800. 0 Neutrophils [#/volume] in Blood by Automated count 2022-06-29 17:22:46 3152.96 Cell/uL F 2000.0-8800. 0 Leukocytes [#/volume] in Blood by Automated count 2022-06-29 17:22:46 4.7 x 10^3 cells/uL F 4.5-11.0 Basophils/100 leukocytes in Blood by Automated count 2022-06-29 17:22:46 0.6 % F Neutrophils/100 leukocytes in Blood by Automated count 2022-06-29 17:22:46 66.8 % F Monocytes/100 leukocytes in Blood by Automated count 2022-06-29 17:22:46 6.5 % F Eosinophils/100 leukocytes in Blood by Automated count 2022-06-29 17:22:46 1.2 % F Lymphocytes/100 leukocytes in Blood by Automated count 2022-06-29 17:22:46 24.9 % F Leukocytes [#/volume] in Blood by Automated count 2022-06-29 17:22:46 4.7 x 10^3 cells/uL F 4.5-11.0 Neutrophils [#/volume] in Blood by Automated count 2022-06-29 17:22:46 3152.96 Cell/uL F 2000.0-8800. 0 Monocytes [#/volume] in Blood by Automated count 2022-06-29 17:22:46 306.8 Cell/uL F 0.0-1100.0 Lymphocytes [#/volume] in Blood by Automated count 2022-06-29 17:22:46 1175.28 Cell/uL F 1100.0-4800. 0 Basophils [#/volume] in Blood by Automated count 2022-06-29 17:22:46 28.32 Cell/uL F 0.0-400.0 Eosinophils [#/volume] in Blood by Automated count 2022-06-29 17:22:46 56.64 Cell/uL F 0.0-700.0 [facility] Description Draw Date Result/Unit Status Ref Range Result Comments CA CORRECTED 2025-03-18 07:48:33 11.6 mg/dL F CA*PO4 CORRCTD 2025-03-18 07:45:01 69.7 Calc F 21.0-53.0 CA/PHOS PRODUCT 2025-03-18 07:45:01 67.8 Calc F 21.0-53.0 Calcium [Mass/volume] in Serum or Plasma 2025-03-18 07:04:22 11.3 mg/dL F 8.7-10.4 Phosphate [Mass/volume] in Serum or Plasma 2025-03-17 19:22:18 6 mg/dL F 2.4-5.1 Parathyrin.intact [Mass/volume] in Serum or Plasma 2025-03-17 18:36:19 39 pg/mL F 18.0-80.0 Alkaline phosphatase [Enzymatic activity/volume] in Serum or Plasma 2025-03-03 14:33:14 142 U/L F 46.0-116.0 Alkaline phosphatase [Enzymatic activity/volume] in Serum or Plasma 2025-03-03 14:33:14 142 U/L F 46.0-116.0 CA CORRECTED 2025-02-20 04:56:00 9.8 mg/dL F Calcium [Mass/volume] in Serum or Plasma 2025-02-20 04:30:24 9.8 mg/dL F 8.7-10.4 CA CORRECTED 2025-02-18 16:03:09 8.7 mg/dL F CA CORRECTED 2025-02-18 16:03:09 8.7 mg/dL F CA*PO4 CORRCTD 2025-02-18 16:00:38 32.2 Calc F 21.0-53.0 CA/PHOS PRODUCT 2025-02-18 16:00:38 32.2 Calc F 21.0-53.0 CA*PO4 CORRCTD 2025-02-18 16:00:38 32.2 Calc F 21.0-53.0 CA/PHOS PRODUCT 2025-02-18 16:00:38 32.2 Calc F 21.0-53.0 Calcium [Mass/volume] in Serum or Plasma 2025-02-18 15:51:05 8.7 mg/dL F 8.7-10.4 Calcium [Mass/volume] in Serum or Plasma 2025-02-18 15:51:05 8.7 mg/dL F 8.7-10.4 Phosphate [Mass/volume] in Serum or Plasma 2025-02-18 06:13:16 3.7 mg/dL F 2.4-5.1 Phosphate [Mass/volume] in Serum or Plasma 2025-02-18 06:13:16 3.7 mg/dL F 2.4-5.1 Parathyrin.intact [Mass/volume] in Serum or Plasma 2025-02-18 04:01:29 509 pg/mL F 18.0-80.0 Parathyrin.intact [Mass/volume] in Serum or Plasma 2025-02-18 04:01:29 509 pg/mL F 18.0-80.0 CA CORRECTED 2025-02-04 07:34:38 10.9 mg/dL F CA CORRECTED 2025-02-04 07:34:38 10.9 mg/dL F CA CORRECTED 2025-02-04 07:34:38 10.9 mg/dL F Calcium [Mass/volume] in Serum or Plasma 2025-02-04 07:13:58 10.9 mg/dL F 8.7-10.4 Calcium [Mass/volume] in Serum or Plasma 2025-02-04 07:13:58 10.9 mg/dL F 8.7-10.4 Calcium [Mass/volume] in Serum or Plasma 2025-02-04 07:13:58 10.9 mg/dL F 8.7-10.4 Alkaline phosphatase [Enzymatic activity/volume] in Serum or Plasma 2025-02-03 23:58:24 148 U/L F 46.0-116.0 Alkaline phosphatase [Enzymatic activity/volume] in Serum or Plasma 2025-02-03 23:58:24 148 U/L F 46.0-116.0 Alkaline phosphatase [Enzymatic activity/volume] in Serum or Plasma 2025-02-03 23:58:24 148 U/L F 46.0-116.0 CA CORRECTED 2025-01-28 02:04:13 10.8 mg/dL F CA CORRECTED 2025-01-28 02:04:13 10.8 mg/dL F CA/PHOS PRODUCT 2025-01-28 02:02:29 84.2 Calc F 21.0-53.0 CA*PO4 CORRCTD 2025-01-28 02:02:29 84.2 Calc F 21.0-53.0 CA/PHOS PRODUCT 2025-01-28 02:02:29 84.2 Calc F 21.0-53.0 CA*PO4 CORRCTD 2025-01-28 02:02:29 84.2 Calc F 21.0-53.0 Calcium [Mass/volume] in Serum or Plasma 2025-01-28 02:00:40 10.8 mg/dL F 8.7-10.4 Calcium [Mass/volume] in Serum or Plasma 2025-01-28 02:00:40 10.8 mg/dL F 8.7-10.4 Phosphate [Mass/volume] in Serum or Plasma 2025-01-27 21:48:13 7.8 mg/dL F 2.4-5.1 Phosphate [Mass/volume] in Serum or Plasma 2025-01-27 21:48:13 7.8 mg/dL F 2.4-5.1 Parathyrin.intact [Mass/volume] in Serum or Plasma 2025-01-27 21:45:21 53 pg/mL F 18.0-80.0 Parathyrin.intact [Mass/volume] in Serum or Plasma 2025-01-27 21:45:21 53 pg/mL F 18.0-80.0 CA*PO4 CORRCTD 2025-01-22 12:55:51 F Recollect - Shipping temp out of range,Unable to Calculate. CA/PHOS PRODUCT 2025-01-22 12:55:51 F Recollect - Shipping temp out of range,Unable to Calculate. CA/PHOS PRODUCT 2025-01-22 12:55:51 F Recollect - Shipping temp out of range,Unable to Calculate. CA*PO4 CORRCTD 2025-01-22 12:55:51 F Recollect - Shipping temp out of range,Unable to Calculate. CA/PHOS PRODUCT 2025-01-22 12:55:51 F Recollect - Shipping temp out of range,Unable to Calculate. CA*PO4 CORRCTD 2025-01-22 12:55:51 F Recollect - Shipping temp out of range,Unable to Calculate. Parathyrin.intact [Mass/volume] in Serum or Plasma 2025-01-22 12:55:00 F Recollect - Shipping temp out of range Parathyrin.intact [Mass/volume] in Serum or Plasma 2025-01-22 12:55:00 F Recollect - Shipping temp out of range Parathyrin.intact [Mass/volume] in Serum or Plasma 2025-01-22 12:55:00 F Recollect - Shipping temp out of range Phosphate [Mass/volume] in Serum or Plasma 2025-01-22 12:55:00 F Recollect - Shipping temp out of range Calcium [Mass/volume] in Serum or Plasma 2025-01-22 12:55:00 F Recollect - Shipping temp out of range Phosphate [Mass/volume] in Serum or Plasma 2025-01-22 12:55:00 F Recollect - Shipping temp out of range Calcium [Mass/volume] in Serum or Plasma 2025-01-22 12:55:00 F Recollect - Shipping temp out of range Calcium [Mass/volume] in Serum or Plasma 2025-01-22 12:55:00 F Recollect - Shipping temp out of range Phosphate [Mass/volume] in Serum or Plasma 2025-01-22 12:55:00 F Recollect - Shipping temp out of range Alkaline phosphatase [Enzymatic activity/volume] in Serum or Plasma 2024-12-31 02:33:13 171 U/L F 46.0-116.0 Alkaline phosphatase [Enzymatic activity/volume] in Serum or Plasma 2024-12-31 02:33:13 171 U/L F 46.0-116.0 Alkaline phosphatase [Enzymatic activity/volume] in Serum or Plasma 2024-12-31 02:33:13 171 U/L F 46.0-116.0 Alkaline phosphatase [Enzymatic activity/volume] in Serum or Plasma 2024-12-31 02:33:13 171 U/L F 46.0-116.0 CA CORRECTED 2024-12-17 07:38:03 9.9 mg/dL F CA CORRECTED 2024-12-17 07:38:03 9.9 mg/dL F CA CORRECTED 2024-12-17 07:38:03 9.9 mg/dL F CA/PHOS PRODUCT 2024-12-17 07:35:39 60.1 Calc F 21.0-53.0 CA*PO4 CORRCTD 2024-12-17 07:35:39 61.6 Calc F 21.0-53.0 CA/PHOS PRODUCT 2024-12-17 07:35:39 60.1 Calc F 21.0-53.0 CA*PO4 CORRCTD 2024-12-17 07:35:39 61.6 Calc F 21.0-53.0 CA*PO4 CORRCTD 2024-12-17 07:35:39 61.6 Calc F 21.0-53.0 CA/PHOS PRODUCT 2024-12-17 07:35:39 60.1 Calc F 21.0-53.0 Calcium [Mass/volume] in Serum or Plasma 2024-12-17 07:11:51 9.7 mg/dL F 8.7-10.4 Calcium [Mass/volume] in Serum or Plasma 2024-12-17 07:11:51 9.7 mg/dL F 8.7-10.4 Calcium [Mass/volume] in Serum or Plasma 2024-12-17 07:11:51 9.7 mg/dL F 8.7-10.4 Phosphate [Mass/volume] in Serum or Plasma 2024-12-17 02:29:17 6.2 mg/dL F 2.4-5.1 Phosphate [Mass/volume] in Serum or Plasma 2024-12-17 02:29:17 6.2 mg/dL F 2.4-5.1 Phosphate [Mass/volume] in Serum or Plasma 2024-12-17 02:29:17 6.2 mg/dL F 2.4-5.1 Parathyrin.intact [Mass/volume] in Serum or Plasma 2024-12-16 15:03:19 87 pg/mL F 18.0-80.0 Parathyrin.intact [Mass/volume] in Serum or Plasma 2024-12-16 15:03:19 87 pg/mL F 18.0-80.0 Parathyrin.intact [Mass/volume] in Serum or Plasma 2024-12-16 15:03:19 87 pg/mL F 18.0-80.0 CA CORRECTED 2024-12-05 07:10:12 8.8 mg/dL F CA CORRECTED 2024-12-05 07:10:12 8.8 mg/dL F Calcium [Mass/volume] in Serum or Plasma 2024-12-05 07:06:09 8.6 mg/dL F 8.7-10.4 Calcium [Mass/volume] in Serum or Plasma 2024-12-05 07:06:09 8.6 mg/dL F 8.7-10.4 Parathyrin.intact [Mass/volume] in Serum or Plasma 2024-11-26 19:49:59 204 pg/mL F 18.0-80.0 Parathyrin.intact [Mass/volume] in Serum or Plasma 2024-11-26 19:49:59 204 pg/mL F 18.0-80.0 Parathyrin.intact [Mass/volume] in Serum or Plasma 2024-11-26 19:49:59 204 pg/mL F 18.0-80.0 CA CORRECTED 2024-11-26 18:14:04 8.5 mg/dL F CA CORRECTED 2024-11-26 18:14:04 8.5 mg/dL F CA CORRECTED 2024-11-26 18:14:04 8.5 mg/dL F CA/PHOS PRODUCT 2024-11-26 18:12:16 39.8 Calc F 21.0-53.0 CA*PO4 CORRCTD 2024-11-26 18:12:16 41 Calc F 21.0-53.0 CA/PHOS PRODUCT 2024-11-26 18:12:16 39.8 Calc F 21.0-53.0 CA*PO4 CORRCTD 2024-11-26 18:12:16 41 Calc F 21.0-53.0 CA*PO4 CORRCTD 2024-11-26 18:12:16 41 Calc F 21.0-53.0 CA/PHOS PRODUCT 2024-11-26 18:12:16 39.8 Calc F 21.0-53.0 Calcium [Mass/volume] in Serum or Plasma 2024-11-26 18:09:30 8.3 mg/dL F 8.7-10.4 Phosphate [Mass/volume] in Serum or Plasma 2024-11-26 18:09:30 4.8 mg/dL F 2.4-5.1 Calcium [Mass/volume] in Serum or Plasma 2024-11-26 18:09:30 8.3 mg/dL F 8.7-10.4 Phosphate [Mass/volume] in Serum or Plasma 2024-11-26 18:09:30 4.8 mg/dL F 2.4-5.1 Phosphate [Mass/volume] in Serum or Plasma 2024-11-26 18:09:30 4.8 mg/dL F 2.4-5.1 Calcium [Mass/volume] in Serum or Plasma 2024-11-26 18:09:30 8.3 mg/dL F 8.7-10.4 Alkaline phosphatase [Enzymatic activity/volume] in Serum or Plasma 2024-11-26 15:55:15 162 U/L F 46.0-116.0 Alkaline phosphatase [Enzymatic activity/volume] in Serum or Plasma 2024-11-26 15:55:15 162 U/L F 46.0-116.0 Alkaline phosphatase [Enzymatic activity/volume] in Serum or Plasma 2024-11-26 15:55:15 162 U/L F 46.0-116.0 CA CORRECTED 2024-11-17 19:04:20 F Unable to Calcul ate CA CORRECTED 2024-11-17 19:04:20 F Unable to Calcul ate CA CORRECTED 2024-11-17 19:04:20 F Unable to Calculate,Unable to Calculate,Unable to Calculate,Unable to Calculate,Unable to Calculate,Unable to Calculate,Unable to Calculate,Unable to Calculate,Unable to Calculate,Unable to Calculate,Unable to Calculate,Unable to Calculate,Unable to Calculate,Unable to Calculate,Unable to Calculate,Unable to Calculate,Unable to Calculate,Unable to Calculate CA/PHOS PRODUCT 2024-11-11 20:41:38 49.6 Calc F 21.0-53.0 CA*PO4 CORRCTD 2024-11-11 20:41:38 50 Calc F 21.0-53.0 CA/PHOS PRODUCT 2024-11-11 20:41:38 49.6 Calc F 21.0-53.0 CA*PO4 CORRCTD 2024-11-11 20:41:38 50 Calc F 21.0-53.0 CA/PHOS PRODUCT 2024-11-11 20:41:38 49.6 Calc F 21.0-53.0 CA*PO4 CORRCTD 2024-11-11 20:41:38 50 Calc F 21.0-53.0 Phosphate [Mass/volume] in Serum or Plasma 2024-11-11 20:31:54 5.7 mg/dL F 2.4-5.1 Calcium [Mass/volume] in Serum or Plasma 2024-11-11 20:31:54 8.7 mg/dL F 8.7-10.4 Calcium [Mass/volume] in Serum or Plasma 2024-11-11 20:31:54 8.7 mg/dL F 8.7-10.4 Phosphate [Mass/volume] in Serum or Plasma 2024-11-11 20:31:54 5.7 mg/dL F 2.4-5.1 Calcium [Mass/volume] in Serum or Plasma 2024-11-11 20:31:54 8.7 mg/dL F 8.7-10.4 Phosphate [Mass/volume] in Serum or Plasma 2024-11-11 20:31:54 5.7 mg/dL F 2.4-5.1 25-Hydroxyvitamin D3+25-Hydroxyvitamin D2 [Mass/volume] in Serum or Plasma 2024-11-11 15:25:20 257.4 ng/mL F 25-Hydroxyvitamin D3+25-Hydroxyvitamin D2 [Mass/volume] in Serum or Plasma 2024-11-11 15:25:20 257.4 ng/mL F 25-Hydroxyvitamin D3+25-Hydroxyvitamin D2 [Mass/volume] in Serum or Plasma 2024-11-11 15:25:20 257.4 ng/mL F Parathyrin.intact [Mass/volume] in Serum or Plasma 2024-11-11 13:32:18 F CANCELED - TEST CANCELED Parathyrin.intact [Mass/volume] in Serum or Plasma 2024-11-11 13:32:18 F CANCELED - TEST CANCELED Parathyrin.intact [Mass/volume] in Serum or Plasma 2024-11-11 13:32:18 F CANCELED - TEST CANCELED,CANCELED - TEST CANCELED CA CORRECTED 2024-09-19 07:44:46 8.9 mg/dL F CA CORRECTED 2024-09-19 07:44:46 8.9 mg/dL F CA CORRECTED 2024-09-19 07:44:46 8.9 mg/dL F CA*PO4 CORRCTD 2024-09-19 07:42:55 49.8 Calc F 21.0-53.0 CA/PHOS PRODUCT 2024-09-19 07:42:55 49.8 Calc F 21.0-53.0 CA*PO4 CORRCTD 2024-09-19 07:42:55 49.8 Calc F 21.0-53.0 CA/PHOS PRODUCT 2024-09-19 07:42:55 49.8 Calc F 21.0-53.0 CA/PHOS PRODUCT 2024-09-19 07:42:55 49.8 Calc F 21.0-53.0 CA*PO4 CORRCTD 2024-09-19 07:42:55 49.8 Calc F 21.0-53.0 Phosphate [Mass/volume] in Serum or Plasma 2024-09-19 07:15:09 5.6 mg/dL F 2.4-5.1 Calcium [Mass/volume] in Serum or Plasma 2024-09-19 07:15:09 8.9 mg/dL F 8.7-10.4 Phosphate [Mass/volume] in Serum or Plasma 2024-09-19 07:15:09 5.6 mg/dL F 2.4-5.1 Calcium [Mass/volume] in Serum or Plasma 2024-09-19 07:15:09 8.9 mg/dL F 8.7-10.4 Calcium [Mass/volume] in Serum or Plasma 2024-09-19 07:15:09 8.9 mg/dL F 8.7-10.4 Phosphate [Mass/volume] in Serum or Plasma 2024-09-19 07:15:09 5.6 mg/dL F 2.4-5.1 Parathyrin.intact [Mass/volume] in Serum or Plasma 2024-09-18 16:09:16 1483 pg/mL F 18.0-80.0 Parathyrin.intact [Mass/volume] in Serum or Plasma 2024-09-18 16:09:16 1483 pg/mL F 18.0-80.0 Parathyrin.intact [Mass/volume] in Serum or Plasma 2024-09-18 16:09:16 1483 pg/mL F 18.0-80.0 Alkaline phosphatase [Enzymatic activity/volume] in Serum or Plasma 2024-09-18 14:59:22 152 U/L F 46.0-116.0 Alkaline phosphatase [Enzymatic activity/volume] in Serum or Plasma 2024-09-18 14:59:22 152 U/L F 46.0-116.0 Alkaline phosphatase [Enzymatic activity/volume] in Serum or Plasma 2024-09-18 14:59:22 152 U/L F 46.0-116.0 CA CORRECTED 2024-08-23 06:32:43 8.6 mg/dL F CA*PO4 CORRCTD 2024-08-23 06:29:40 14.6 Calc F 21.0-53.0 CA/PHOS PRODUCT 2024-08-23 06:29:40 14.5 Calc F 21.0-53.0 Phosphate [Mass/volume] in Serum or Plasma 2024-08-23 04:16:44 1.7 mg/dL F 2.4-5.1 Calcium [Mass/volume] in Serum or Plasma 2024-08-23 04:16:44 8.5 mg/dL F 8.7-10.4 Parathyrin.intact [Mass/volume] in Serum or Plasma 2024-08-22 18:48:19 1895 pg/mL F 18.0-80.0 Alkaline phosphatase [Enzymatic activity/volume] in Serum or Plasma 2024-08-22 17:52:20 95 U/L F 46.0-116.0 Parathyrin.intact [Mass/volume] in Serum or Plasma 2024-06-08 03:52:06 753 pg/mL F 18.0-80.0 Parathyrin.intact [Mass/volume] in Serum or Plasma 2024-06-08 03:52:06 753 pg/mL F 18.0-80.0 Parathyrin.intact [Mass/volume] in Serum or Plasma 2024-06-08 03:52:06 753 pg/mL F 18.0-80.0 CA CORRECTED 2024-06-08 02:48:44 7.3 mg/dL F CA CORRECTED 2024-06-08 02:48:44 7.3 mg/dL F CA CORRECTED 2024-06-08 02:48:44 7.3 mg/dL F CA*PO4 CORRCTD 2024-06-08 02:47:54 34.3 Calc F 21.0-53.0 CA/PHOS PRODUCT 2024-06-08 02:47:54 34.3 Calc F 21.0-53.0 CA*PO4 CORRCTD 2024-06-08 02:47:54 34.3 Calc F 21.0-53.0 CA/PHOS PRODUCT 2024-06-08 02:47:54 34.3 Calc F 21.0-53.0 CA/PHOS PRODUCT 2024-06-08 02:47:54 34.3 Calc F 21.0-53.0 CA*PO4 CORRCTD 2024-06-08 02:47:54 34.3 Calc F 21.0-53.0 Calcium [Mass/volume] in Serum or Plasma 2024-06-08 02:36:57 7.3 mg/dL F 8.7-10.4 Calcium [Mass/volume] in Serum or Plasma 2024-06-08 02:36:57 7.3 mg/dL F 8.7-10.4 Calcium [Mass/volume] in Serum or Plasma 2024-06-08 02:36:57 7.3 mg/dL F 8.7-10.4 Phosphate [Mass/volume] in Serum or Plasma 2024-06-07 21:12:11 4.7 mg/dL F 2.4-5.1 Alkaline phosphatase [Enzymatic activity/volume] in Serum or Plasma 2024-06-07 21:12:11 127 U/L F 46.0-116.0 Phosphate [Mass/volume] in Serum or Plasma 2024-06-07 21:12:11 4.7 mg/dL F 2.4-5.1 Alkaline phosphatase [Enzymatic activity/volume] in Serum or Plasma 2024-06-07 21:12:11 127 U/L F 46.0-116.0 Alkaline phosphatase [Enzymatic activity/volume] in Serum or Plasma 2024-06-07 21:12:11 127 U/L F 46.0-116.0 Phosphate [Mass/volume] in Serum or Plasma 2024-06-07 21:12:11 4.7 mg/dL F 2.4-5.1 Alkaline phosphatase [Enzymatic activity/volume] in Serum or Plasma 2024-06-04 03:30:28 133 U/L F 46.0-116.0 Alkaline phosphatase [Enzymatic activity/volume] in Serum or Plasma 2024-06-04 03:30:28 133 U/L F 46.0-116.0 Alkaline phosphatase [Enzymatic activity/volume] in Serum or Plasma 2024-05-06 13:06:23 128 U/L F 46.0-116.0 Alkaline phosphatase [Enzymatic activity/volume] in Serum or Plasma 2024-04-01 23:29:22 151 U/L F 46.0-116.0 Alkaline phosphatase [Enzymatic activity/volume] in Serum or Plasma 2024-04-01 23:29:22 151 U/L F 46.0-116.0 Alkaline phosphatase [Enzymatic activity/volume] in Serum or Plasma 2024-03-05 00:37:33 122 U/L F 46.0-116.0 Alkaline phosphatase [Enzymatic activity/volume] in Serum or Plasma 2024-03-05 00:37:33 122 U/L F 46.0-116.0 CA CORRECTED 2024-01-30 07:44:14 8.7 mg/dL F CA CORRECTED 2024-01-30 07:44:14 8.7 mg/dL F Calcium [Mass/volume] in Serum or Plasma 2024-01-30 07:28:53 8.7 mg/dL F 8.7-10.4 Calcium [Mass/volume] in Serum or Plasma 2024-01-30 07:28:53 8.7 mg/dL F 8.7-10.4 Alkaline phosphatase [Enzymatic activity/volume] in Serum or Plasma 2024-01-29 20:56:35 146 U/L F 46.0-116.0 Alkaline phosphatase [Enzymatic activity/volume] in Serum or Plasma 2024-01-29 20:56:35 146 U/L F 46.0-116.0 Alkaline phosphatase [Enzymatic activity/volume] in Serum or Plasma 2024-01-02 03:12:40 129 U/L F 46.0-116.0 Alkaline phosphatase [Enzymatic activity/volume] in Serum or Plasma 2024-01-02 03:12:40 129 U/L F 46.0-116.0 25-Hydroxyvitamin D3+25-Hydroxyvitamin D2 [Mass/volume] in Serum or Plasma 2023-12-06 18:16:51 174.8 ng/mL F 25-Hydroxyvitamin D3+25-Hydroxyvitamin D2 [Mass/volume] in Serum or Plasma 2023-12-06 18:16:51 174.8 ng/mL F 25-Hydroxyvitamin D3+25-Hydroxyvitamin D2 [Mass/volume] in Serum or Plasma 2023-12-06 18:16:51 174.8 ng/mL F Alkaline phosphatase [Enzymatic activity/volume] in Serum or Plasma 2023-12-06 14:55:32 128 U/L F 46.0-116.0 Alkaline phosphatase [Enzymatic activity/volume] in Serum or Plasma 2023-12-06 14:55:32 128 U/L F 46.0-116.0 Alkaline phosphatase [Enzymatic activity/volume] in Serum or Plasma 2023-12-06 14:55:32 128 U/L F 46.0-116.0 CA CORRECTED 2023-10-31 06:59:53 8.4 mg/dL F Calcium [Mass/volume] in Serum or Plasma 2023-10-31 06:49:18 8.4 mg/dL F 8.7-10.4 Alkaline phosphatase [Enzymatic activity/volume] in Serum or Plasma 2023-10-30 20:36:43 117 U/L F 46.0-116.0 Alkaline phosphatase [Enzymatic activity/volume] in Serum or Plasma 2023-10-02 19:09:36 135 U/L F 46.0-116.0 Alkaline phosphatase [Enzymatic activity/volume] in Serum or Plasma 2023-10-02 19:09:36 135 U/L F 46.0-116.0 Alkaline phosphatase [Enzymatic activity/volume] in Serum or Plasma 2023-10-02 19:09:36 135 U/L F 46.0-116.0 Alkaline phosphatase [Enzymatic activity/volume] in Serum or Plasma 2023-09-05 02:32:09 117 U/L F 46.0-116.0 Alkaline phosphatase [Enzymatic activity/volume] in Serum or Plasma 2023-09-05 02:32:09 117 U/L F 46.0-116.0 Alkaline phosphatase [Enzymatic activity/volume] in Serum or Plasma 2023-09-05 02:32:09 117 U/L F 46.0-116.0 CA CORRECTED 2023-08-03 04:19:04 7.4 mg/dL F CA CORRECTED 2023-08-03 04:19:04 7.4 mg/dL F CA CORRECTED 2023-08-03 04:19:04 7.4 mg/dL F Calcium [Mass/volume] in Serum or Plasma 2023-08-03 04:11:42 7.4 mg/dL F 8.7-10.4 Calcium [Mass/volume] in Serum or Plasma 2023-08-03 04:11:42 7.4 mg/dL F 8.7-10.4 Calcium [Mass/volume] in Serum or Plasma 2023-08-03 04:11:42 7.4 mg/dL F 8.7-10.4 Alkaline phosphatase [Enzymatic activity/volume] in Serum or Plasma 2023-08-02 23:48:44 89 U/L F 46.0-116.0 Alkaline phosphatase [Enzymatic activity/volume] in Serum or Plasma 2023-08-02 23:48:44 89 U/L F 46.0-116.0 Alkaline phosphatase [Enzymatic activity/volume] in Serum or Plasma 2023-08-02 23:48:44 89 U/L F 46.0-116.0 CA CORRECTED 2023-07-06 07:26:56 8.4 mg/dL F CA CORRECTED 2023-07-06 07:26:56 8.4 mg/dL F CA CORRECTED 2023-07-06 07:26:56 8.4 mg/dL F Calcium [Mass/volume] in Serum or Plasma 2023-07-06 07:19:33 8.4 mg/dL F 8.7-10.4 Calcium [Mass/volume] in Serum or Plasma 2023-07-06 07:19:33 8.4 mg/dL F 8.7-10.4 Calcium [Mass/volume] in Serum or Plasma 2023-07-06 07:19:33 8.4 mg/dL F 8.7-10.4 Alkaline phosphatase [Enzymatic activity/volume] in Serum or Plasma 2023-07-05 22:48:17 111 U/L F 46.0-116.0 Alkaline phosphatase [Enzymatic activity/volume] in Serum or Plasma 2023-07-05 22:48:17 111 U/L F 46.0-116.0 Alkaline phosphatase [Enzymatic activity/volume] in Serum or Plasma 2023-07-05 22:48:17 111 U/L F 46.0-116.0 Alkaline phosphatase [Enzymatic activity/volume] in Serum or Plasma 2023-06-05 21:47:29 139 U/L F 46.0-116.0 Alkaline phosphatase [Enzymatic activity/volume] in Serum or Plasma 2023-06-05 21:47:29 139 U/L F 46.0-116.0 Alkaline phosphatase [Enzymatic activity/volume] in Serum or Plasma 2023-05-03 17:43:30 137 U/L F 46.0-116.0 Alkaline phosphatase [Enzymatic activity/volume] in Serum or Plasma 2023-05-03 17:43:30 137 U/L F 46.0-116.0 Alkaline phosphatase [Enzymatic activity/volume] in Serum or Plasma 2023-04-03 23:38:34 250 U/L F 46.0-116.0 Alkaline phosphatase [Enzymatic activity/volume] in Serum or Plasma 2023-04-03 23:38:34 250 U/L F 46.0-116.0 CA CORRECTED 2023-03-07 06:33:10 7.8 mg/dL F Calcium [Mass/volume] in Serum or Plasma 2023-03-07 06:28:49 7.7 mg/dL F 8.7-10.4 Alkaline phosphatase [Enzymatic activity/volume] in Serum or Plasma 2023-03-06 19:55:32 106 U/L F 46.0-116.0 Alkaline phosphatase [Enzymatic activity/volume] in Serum or Plasma 2023-01-30 23:47:23 354 U/L F 46.0-116.0 Alkaline phosphatase [Enzymatic activity/volume] in Serum or Plasma 2023-01-30 23:47:23 354 U/L F 46.0-116.0 Alkaline phosphatase [Enzymatic activity/volume] in Serum or Plasma 2023-01-02 23:19:18 218 U/L F 46.0-116.0 Alkaline phosphatase [Enzymatic activity/volume] in Serum or Plasma 2022-11-28 21:58:23 299 U/L F 46.0-116.0 Alkaline phosphatase [Enzymatic activity/volume] in Serum or Plasma 2022-11-28 21:58:23 299 U/L F 46.0-116.0 CA CORRECTED 2022-10-11 10:27:13 7.7 mg/dL F CA CORRECTED 2022-10-11 10:27:13 7.7 mg/dL F CA CORRECTED 2022-10-11 10:27:13 7.7 mg/dL F CA*PO4 CORRCTD 2022-10-11 06:10:46 41.6 Calc F 21.0-53.0 CA/PHOS PRODUCT 2022-10-11 06:10:46 40.5 Calc F 21.0-53.0 CA/PHOS PRODUCT 2022-10-11 06:10:46 40.5 Calc F 21.0-53.0 CA*PO4 CORRCTD 2022-10-11 06:10:46 41.6 Calc F 21.0-53.0 CA/PHOS PRODUCT 2022-10-11 06:10:46 40.5 Calc F 21.0-53.0 CA*PO4 CORRCTD 2022-10-11 06:10:46 41.6 Calc F 21.0-53.0 Calcium [Mass/volume] in Serum or Plasma 2022-10-11 06:06:38 7.5 mg/dL F 8.7-10.4 Calcium [Mass/volume] in Serum or Plasma 2022-10-11 06:06:38 7.5 mg/dL F 8.7-10.4 Calcium [Mass/volume] in Serum or Plasma 2022-10-11 06:06:38 7.5 mg/dL F 8.7-10.4 Phosphate [Mass/volume] in Serum or Plasma 2022-10-11 05:32:19 5.4 mg/dL F 2.4-5.1 Alkaline phosphatase [Enzymatic activity/volume] in Serum or Plasma 2022-10-11 05:32:19 222 U/L F 46.0-116.0 Phosphate [Mass/volume] in Serum or Plasma 2022-10-11 05:32:19 5.4 mg/dL F 2.4-5.1 Alkaline phosphatase [Enzymatic activity/volume] in Serum or Plasma 2022-10-11 05:32:19 222 U/L F 46.0-116.0 Alkaline phosphatase [Enzymatic activity/volume] in Serum or Plasma 2022-10-11 05:32:19 222 U/L F 46.0-116.0 Phosphate [Mass/volume] in Serum or Plasma 2022-10-11 05:32:19 5.4 mg/dL F 2.4-5.1 Parathyrin.intact [Mass/volume] in Serum or Plasma 2022-10-11 05:02:26 1756 pg/mL F 18.0-80.0 Parathyrin.intact [Mass/volume] in Serum or Plasma 2022-10-11 05:02:26 1756 pg/mL F 18.0-80.0 Parathyrin.intact [Mass/volume] in Serum or Plasma 2022-10-11 05:02:26 1756 pg/mL F 18.0-80.0 Alkaline phosphatase [Enzymatic activity/volume] in Serum or Plasma 2022-09-28 20:10:21 224 U/L F 46.0-116.0 CA CORRECTED 2022-08-31 18:54:26 8 mg/dL F CA CORRECTED 2022-08-31 18:54:26 8 mg/dL F Calcium [Mass/volume] in Serum or Plasma 2022-08-31 17:00:13 8 mg/dL F 8.7-10.4 Calcium [Mass/volume] in Serum or Plasma 2022-08-31 17:00:13 8 mg/dL F 8.7-10.4 Alkaline phosphatase [Enzymatic activity/volume] in Serum or Plasma 2022-08-31 13:53:59 161 U/L F 46.0-116.0 Alkaline phosphatase [Enzymatic activity/volume] in Serum or Plasma 2022-08-31 13:53:59 161 U/L F 46.0-116.0 Alkaline phosphatase [Enzymatic activity/volume] in Serum or Plasma 2022-07-27 16:54:48 143 U/L F 46.0-116.0 Alkaline phosphatase [Enzymatic activity/volume] in Serum or Plasma 2022-07-27 16:54:48 143 U/L F 46.0-116.0 Alkaline phosphatase [Enzymatic activity/volume] in Serum or Plasma 2022-07-27 16:54:48 143 U/L F 46.0-116.0 CA CORRECTED 2022-06-30 08:35:39 7.5 mg/dL F CA CORRECTED 2022-06-30 08:35:39 7.5 mg/dL F Calcium [Mass/volume] in Serum or Plasma 2022-06-29 21:29:02 7.5 mg/dL F 8.7-10.4 Calcium [Mass/volume] in Serum or Plasma 2022-06-29 21:29:02 7.5 mg/dL F 8.7-10.4 Alkaline phosphatase [Enzymatic activity/volume] in Serum or Plasma 2022-06-29 14:39:43 98 U/L F 46.0-116.0 Alkaline phosphatase [Enzymatic activity/volume] in Serum or Plasma 2022-06-29 14:39:43 98 U/L F 46.0-116.0 Parathyrin.intact [Mass/volume] in Serum or Plasma CA CORRECTED Phosphate [Mass/volume] in Serum or Plasma CA*PO4 CORRCTD Calcium [Mass/volume] in Serum or Plasma CA/PHOS PRODUCT CA CORRECTED F CA CORRECTED F CA CORRECTED F Alkaline phosphatase [Enzymatic activity/volume] in Serum or Plasma Alkaline phosphatase [Enzymatic activity/volume] in Serum or Plasma Alkaline phosphatase [Enzymatic activity/volume] in Serum or Plasma Nutrition Description Draw Date Result/Unit Status Ref Range Result Comments Potassium [Moles/volume] in Serum or Plasma 2025-03-18 07:04:22 4.6 mEq/L F 3.5-5.1 Potassium [Moles/volume] in Serum or Plasma 2025-03-04 03:06:50 6 mEq/L F 3.5-5.1 Potassium [Moles/volume] in Serum or Plasma 2025-03-04 03:06:50 6 mEq/L F 3.5-5.1 A/G RATIO 2025-03-03 14:34:06 1.8 Calc F 1.0-2.5 GLOBULIN 2025-03-03 14:34:06 2 g/dL F 0.9-5.0 GLOBULIN 2025-03-03 14:34:06 2 g/dL F 0.9-5.0 A/G RATIO 2025-03-03 14:34:06 1.8 Calc F 1.0-2.5 Bicarbonate [Moles/volume] in Serum or Plasma 2025-03-03 14:33:16 25 mEq/L F 20.0-31.0 Glucose [Mass/volume] in Serum or Plasma 2025-03-03 14:33:16 199 mg/dL F 74.0-106.0 Bicarbonate [Moles/volume] in Serum or Plasma 2025-03-03 14:33:16 25 mEq/L F 20.0-31.0 Glucose [Mass/volume] in Serum or Plasma 2025-03-03 14:33:16 199 mg/dL F 74.0-106.0 Albumin [Mass/volume] in Serum or Plasma by Bromocresol green (BCG) dye binding method 2025-03-03 14:33:14 3.6 g/dL F 3.2-4.8 Lactate dehydrogenase [Enzymatic activity/volume] in Serum or Plasma 2025-03-03 14:33:14 171 U/L F 120.0-246.0 Protein [Mass/volume] in Serum or Plasma 2025-03-03 14:33:14 5.6 g/dL F 5.7-8.2 Lactate dehydrogenase [Enzymatic activity/volume] in Serum or Plasma 2025-03-03 14:33:14 171 U/L F 120.0-246.0 Albumin [Mass/volume] in Serum or Plasma by Bromocresol green (BCG) dye binding method 2025-03-03 14:33:14 3.6 g/dL F 3.2-4.8 Protein [Mass/volume] in Serum or Plasma 2025-03-03 14:33:14 5.6 g/dL F 5.7-8.2 Potassium [Moles/volume] in Serum or Plasma 2025-02-18 15:51:05 4.6 mEq/L F 3.5-5.1 Potassium [Moles/volume] in Serum or Plasma 2025-02-18 15:51:05 4.6 mEq/L F 3.5-5.1 Potassium [Moles/volume] in Serum or Plasma 2025-02-04 07:13:58 5.2 mEq/L F 3.5-5.1 Potassium [Moles/volume] in Serum or Plasma 2025-02-04 07:13:58 5.2 mEq/L F 3.5-5.1 Potassium [Moles/volume] in Serum or Plasma 2025-02-04 07:13:58 5.2 mEq/L F 3.5-5.1 GLOBULIN 2025-02-03 23:59:19 2.1 g/dL F 0.9-5.0 A/G RATIO 2025-02-03 23:59:19 2 Calc F 1.0-2.5 A/G RATIO 2025-02-03 23:59:19 2 Calc F 1.0-2.5 GLOBULIN 2025-02-03 23:59:19 2.1 g/dL F 0.9-5.0 GLOBULIN 2025-02-03 23:59:19 2.1 g/dL F 0.9-5.0 A/G RATIO 2025-02-03 23:59:19 2 Calc F 1.0-2.5 Bicarbonate [Moles/volume] in Serum or Plasma 2025-02-03 23:58:24 26 mEq/L F 20.0-31.0 Lactate dehydrogenase [Enzymatic activity/volume] in Serum or Plasma 2025-02-03 23:58:24 195 U/L F 120.0-246.0 Albumin [Mass/volume] in Serum or Plasma by Bromocresol green (BCG) dye binding method 2025-02-03 23:58:24 4.2 g/dL F 3.2-4.8 Protein [Mass/volume] in Serum or Plasma 2025-02-03 23:58:24 6.3 g/dL F 5.7-8.2 Glucose [Mass/volume] in Serum or Plasma 2025-02-03 23:58:24 169 mg/dL F 74.0-106.0 Albumin [Mass/volume] in Serum or Plasma by Bromocresol green (BCG) dye binding method 2025-02-03 23:58:24 4.2 g/dL F 3.2-4.8 Bicarbonate [Moles/volume] in Serum or Plasma 2025-02-03 23:58:24 26 mEq/L F 20.0-31.0 Glucose [Mass/volume] in Serum or Plasma 2025-02-03 23:58:24 169 mg/dL F 74.0-106.0 Lactate dehydrogenase [Enzymatic activity/volume] in Serum or Plasma 2025-02-03 23:58:24 195 U/L F 120.0-246.0 Protein [Mass/volume] in Serum or Plasma 2025-02-03 23:58:24 6.3 g/dL F 5.7-8.2 Lactate dehydrogenase [Enzymatic activity/volume] in Serum or Plasma 2025-02-03 23:58:24 195 U/L F 120.0-246.0 Bicarbonate [Moles/volume] in Serum or Plasma 2025-02-03 23:58:24 26 mEq/L F 20.0-31.0 Albumin [Mass/volume] in Serum or Plasma by Bromocresol green (BCG) dye binding method 2025-02-03 23:58:24 4.2 g/dL F 3.2-4.8 Protein [Mass/volume] in Serum or Plasma 2025-02-03 23:58:24 6.3 g/dL F 5.7-8.2 Glucose [Mass/volume] in Serum or Plasma 2025-02-03 23:58:24 169 mg/dL F 74.0-106.0 Potassium [Moles/volume] in Serum or Plasma 2025-01-22 12:55:00 F Recollect - Shipping temp out of range Potassium [Moles/volume] in Serum or Plasma 2025-01-22 12:55:00 F Recollect - Shipping temp out of range Potassium [Moles/volume] in Serum or Plasma 2025-01-22 12:55:00 F Recollect - Shipping temp out of range Potassium [Moles/volume] in Serum or Plasma 2024-12-31 04:06:03 5.4 mEq/L F 3.5-5.1 Potassium [Moles/volume] in Serum or Plasma 2024-12-31 04:06:03 5.4 mEq/L F 3.5-5.1 Potassium [Moles/volume] in Serum or Plasma 2024-12-31 04:06:03 5.4 mEq/L F 3.5-5.1 Potassium [Moles/volume] in Serum or Plasma 2024-12-31 04:06:03 5.4 mEq/L F 3.5-5.1 A/G RATIO 2024-12-31 02:34:17 2 Calc F 1.0-2.5 GLOBULIN 2024-12-31 02:34:17 2.1 g/dL F 0.9-5.0 A/G RATIO 2024-12-31 02:34:17 2 Calc F 1.0-2.5 GLOBULIN 2024-12-31 02:34:17 2.1 g/dL F 0.9-5.0 A/G RATIO 2024-12-31 02:34:17 2 Calc F 1.0-2.5 GLOBULIN 2024-12-31 02:34:17 2.1 g/dL F 0.9-5.0 GLOBULIN 2024-12-31 02:34:17 2.1 g/dL F 0.9-5.0 A/G RATIO 2024-12-31 02:34:17 2 Calc F 1.0-2.5 Albumin [Mass/volume] in Serum or Plasma by Bromocresol green (BCG) dye binding method 2024-12-31 02:33:13 4.2 g/dL F 3.2-4.8 Bicarbonate [Moles/volume] in Serum or Plasma 2024-12-31 02:33:13 22 mEq/L F 20.0-31.0 Glucose [Mass/volume] in Serum or Plasma 2024-12-31 02:33:13 175 mg/dL F 74.0-106.0 Lactate dehydrogenase [Enzymatic activity/volume] in Serum or Plasma 2024-12-31 02:33:13 210 U/L F 120.0-246.0 Protein [Mass/volume] in Serum or Plasma 2024-12-31 02:33:13 6.3 g/dL F 5.7-8.2 Lactate dehydrogenase [Enzymatic activity/volume] in Serum or Plasma 2024-12-31 02:33:13 210 U/L F 120.0-246.0 Bicarbonate [Moles/volume] in Serum or Plasma 2024-12-31 02:33:13 22 mEq/L F 20.0-31.0 Albumin [Mass/volume] in Serum or Plasma by Bromocresol green (BCG) dye binding method 2024-12-31 02:33:13 4.2 g/dL F 3.2-4.8 Protein [Mass/volume] in Serum or Plasma 2024-12-31 02:33:13 6.3 g/dL F 5.7-8.2 Glucose [Mass/volume] in Serum or Plasma 2024-12-31 02:33:13 175 mg/dL F 74.0-106.0 Lactate dehydrogenase [Enzymatic activity/volume] in Serum or Plasma 2024-12-31 02:33:13 210 U/L F 120.0-246.0 Bicarbonate [Moles/volume] in Serum or Plasma 2024-12-31 02:33:13 22 mEq/L F 20.0-31.0 Albumin [Mass/volume] in Serum or Plasma by Bromocresol green (BCG) dye binding method 2024-12-31 02:33:13 4.2 g/dL F 3.2-4.8 Protein [Mass/volume] in Serum or Plasma 2024-12-31 02:33:13 6.3 g/dL F 5.7-8.2 Glucose [Mass/volume] in Serum or Plasma 2024-12-31 02:33:13 175 mg/dL F 74.0-106.0 Bicarbonate [Moles/volume] in Serum or Plasma 2024-12-31 02:33:13 22 mEq/L F 20.0-31.0 Albumin [Mass/volume] in Serum or Plasma by Bromocresol green (BCG) dye binding method 2024-12-31 02:33:13 4.2 g/dL F 3.2-4.8 Glucose [Mass/volume] in Serum or Plasma 2024-12-31 02:33:13 175 mg/dL F 74.0-106.0 Lactate dehydrogenase [Enzymatic activity/volume] in Serum or Plasma 2024-12-31 02:33:13 210 U/L F 120.0-246.0 Protein [Mass/volume] in Serum or Plasma 2024-12-31 02:33:13 6.3 g/dL F 5.7-8.2 Potassium [Moles/volume] in Serum or Plasma 2024-12-17 07:11:51 5.6 mEq/L F 3.5-5.1 Potassium [Moles/volume] in Serum or Plasma 2024-12-17 07:11:51 5.6 mEq/L F 3.5-5.1 Potassium [Moles/volume] in Serum or Plasma 2024-12-17 07:11:51 5.6 mEq/L F 3.5-5.1 Potassium [Moles/volume] in Serum or Plasma 2024-11-26 18:09:30 5 mEq/L F 3.5-5.5 Potassium [Moles/volume] in Serum or Plasma 2024-11-26 18:09:30 5 mEq/L F 3.5-5.5 Potassium [Moles/volume] in Serum or Plasma 2024-11-26 18:09:30 5 mEq/L F 3.5-5.5 A/G RATIO 2024-11-26 15:56:07 1.9 Calc F 1.0-2.5 GLOBULIN 2024-11-26 15:56:07 2 g/dL F 0.9-5.0 LDL-CHOLESTEROL 2024-11-26 15:56:07 53 mg/dL F 0.0-99.0 VLDL-CHOL(CALC) 2024-11-26 15:56:07 23 mg/dL F 0.0-29.0 CHOL/HDL RATIO 2024-11-26 15:56:07 3.1 Calc F 3.3-5.0 A/G RATIO 2024-11-26 15:56:07 1.9 Calc F 1.0-2.5 GLOBULIN 2024-11-26 15:56:07 2 g/dL F 0.9-5.0 VLDL-CHOL(CALC) 2024-11-26 15:56:07 23 mg/dL F 0.0-29.0 LDL-CHOLESTEROL 2024-11-26 15:56:07 53 mg/dL F 0.0-99.0 CHOL/HDL RATIO 2024-11-26 15:56:07 3.1 Calc F 3.3-5.0 VLDL-CHOL(CALC) 2024-11-26 15:56:07 23 mg/dL F 0.0-29.0 LDL-CHOLESTEROL 2024-11-26 15:56:07 53 mg/dL F 0.0-99.0 GLOBULIN 2024-11-26 15:56:07 2 g/dL F 0.9-5.0 A/G RATIO 2024-11-26 15:56:07 1.9 Calc F 1.0-2.5 CHOL/HDL RATIO 2024-11-26 15:56:07 3.1 Calc F 3.3-5.0 Albumin [Mass/volume] in Serum or Plasma by Bromocresol green (BCG) dye binding method 2024-11-26 15:55:15 3.7 g/dL F 3.4-4.8 Cholesterol [Mass/volume] in Serum or Plasma 2024-11-26 15:55:15 113 mg/dL F 0.0-199.0 Bicarbonate [Moles/volume] in Serum or Plasma 2024-11-26 15:55:15 27 mEq/L F 20.0-31.0 Glucose [Mass/volume] in Serum or Plasma 2024-11-26 15:55:15 237 mg/dL F 70.0-99.0 Lactate dehydrogenase [Enzymatic activity/volume] in Serum or Plasma 2024-11-26 15:55:15 244 U/L F 120.0-246.0 Protein [Mass/volume] in Serum or Plasma 2024-11-26 15:55:15 114 mg/dL F 0.0-149.0 Protein [Mass/volume] in Serum or Plasma 2024-11-26 15:55:15 5.7 g/dL F 5.7-8.2 Cholesterol in HDL [Mass/volume] in Serum or Plasma 2024-11-26 15:55:15 37 mg/dL F 40.0-60.0 Albumin [Mass/volume] in Serum or Plasma by Bromocresol green (BCG) dye binding method 2024-11-26 15:55:15 3.7 g/dL F 3.4-4.8 Cholesterol [Mass/volume] in Serum or Plasma 2024-11-26 15:55:15 113 mg/dL F 0.0-199.0 Bicarbonate [Moles/volume] in Serum or Plasma 2024-11-26 15:55:15 27 mEq/L F 20.0-31.0 Glucose [Mass/volume] in Serum or Plasma 2024-11-26 15:55:15 237 mg/dL F 70.0-99.0 Lactate dehydrogenase [Enzymatic activity/volume] in Serum or Plasma 2024-11-26 15:55:15 244 U/L F 120.0-246.0 Protein [Mass/volume] in Serum or Plasma 2024-11-26 15:55:15 5.7 g/dL F 5.7-8.2 Protein [Mass/volume] in Serum or Plasma 2024-11-26 15:55:15 114 mg/dL F 0.0-149.0 Cholesterol in HDL [Mass/volume] in Serum or Plasma 2024-11-26 15:55:15 37 mg/dL F 40.0-60.0 Cholesterol [Mass/volume] in Serum or Plasma 2024-11-26 15:55:15 113 mg/dL F 0.0-199.0 Protein [Mass/volume] in Serum or Plasma 2024-11-26 15:55:15 114 mg/dL F 0.0-149.0 Lactate dehydrogenase [Enzymatic activity/volume] in Serum or Plasma 2024-11-26 15:55:15 244 U/L F 120.0-246.0 Bicarbonate [Moles/volume] in Serum or Plasma 2024-11-26 15:55:15 27 mEq/L F 20.0-31.0 Albumin [Mass/volume] in Serum or Plasma by Bromocresol green (BCG) dye binding method 2024-11-26 15:55:15 3.7 g/dL F 3.4-4.8 Cholesterol in HDL [Mass/volume] in Serum or Plasma 2024-11-26 15:55:15 37 mg/dL F 40.0-60.0 Protein [Mass/volume] in Serum or Plasma 2024-11-26 15:55:15 5.7 g/dL F 5.7-8.2 Glucose [Mass/volume] in Serum or Plasma 2024-11-26 15:55:15 237 mg/dL F 70.0-99.0 Potassium [Moles/volume] in Serum or Plasma 2024-11-11 20:31:54 5.3 mEq/L F 3.5-5.5 Potassium [Moles/volume] in Serum or Plasma 2024-11-11 20:31:54 5.3 mEq/L F 3.5-5.5 Potassium [Moles/volume] in Serum or Plasma 2024-11-11 20:31:54 5.3 mEq/L F 3.5-5.5 Cobalamin (Vitamin B12) [Mass/volume] in Serum or Plasma 2024-11-11 15:25:20 2000 pg/mL F 211.0-911.0 Cobalamin (Vitamin B12) [Mass/volume] in Serum or Plasma 2024-11-11 15:25:20 2000 pg/mL F 211.0-911.0 Cobalamin (Vitamin B12) [Mass/volume] in Serum or Plasma 2024-11-11 15:25:20 2000 pg/mL F 211.0-911.0 Potassium [Moles/volume] in Serum or Plasma 2024-09-19 07:15:09 4.3 mEq/L F 3.5-5.5 Potassium [Moles/volume] in Serum or Plasma 2024-09-19 07:15:09 4.3 mEq/L F 3.5-5.5 Potassium [Moles/volume] in Serum or Plasma 2024-09-19 07:15:09 4.3 mEq/L F 3.5-5.5 A/G RATIO 2024-09-18 15:00:26 2.7 Calc F 1.0-2.5 GLOBULIN 2024-09-18 15:00:26 1.6 g/dL F 0.9-5.0 GLOBULIN 2024-09-18 15:00:26 1.6 g/dL F 0.9-5.0 A/G RATIO 2024-09-18 15:00:26 2.7 Calc F 1.0-2.5 A/G RATIO 2024-09-18 15:00:26 2.7 Calc F 1.0-2.5 GLOBULIN 2024-09-18 15:00:26 1.6 g/dL F 0.9-5.0 Lactate dehydrogenase [Enzymatic activity/volume] in Serum or Plasma 2024-09-18 14:59:22 185 U/L F 120.0-246.0 Bicarbonate [Moles/volume] in Serum or Plasma 2024-09-18 14:59:22 29 mEq/L F 20.0-31.0 Albumin [Mass/volume] in Serum or Plasma by Bromocresol green (BCG) dye binding method 2024-09-18 14:59:22 4.3 g/dL F 3.4-4.8 Protein [Mass/volume] in Serum or Plasma 2024-09-18 14:59:22 5.9 g/dL F 5.7-8.2 Lactate dehydrogenase [Enzymatic activity/volume] in Serum or Plasma 2024-09-18 14:59:22 185 U/L F 120.0-246.0 Bicarbonate [Moles/volume] in Serum or Plasma 2024-09-18 14:59:22 29 mEq/L F 20.0-31.0 Albumin [Mass/volume] in Serum or Plasma by Bromocresol green (BCG) dye binding method 2024-09-18 14:59:22 4.3 g/dL F 3.4-4.8 Protein [Mass/volume] in Serum or Plasma 2024-09-18 14:59:22 5.9 g/dL F 5.7-8.2 Bicarbonate [Moles/volume] in Serum or Plasma 2024-09-18 14:59:22 29 mEq/L F 20.0-31.0 Albumin [Mass/volume] in Serum or Plasma by Bromocresol green (BCG) dye binding method 2024-09-18 14:59:22 4.3 g/dL F 3.4-4.8 Lactate dehydrogenase [Enzymatic activity/volume] in Serum or Plasma 2024-09-18 14:59:22 185 U/L F 120.0-246.0 Protein [Mass/volume] in Serum or Plasma 2024-09-18 14:59:22 5.9 g/dL F 5.7-8.2 Potassium [Moles/volume] in Serum or Plasma 2024-08-23 04:16:44 4.5 mEq/L F 3.5-5.5 GLOBULIN 2024-08-22 17:53:13 1.7 g/dL F 0.9-5.0 A/G RATIO 2024-08-22 17:53:13 2.3 Calc F 1.0-2.5 Lactate dehydrogenase [Enzymatic activity/volume] in Serum or Plasma 2024-08-22 17:52:20 195 U/L F 120.0-246.0 Bicarbonate [Moles/volume] in Serum or Plasma 2024-08-22 17:52:20 32 mEq/L F 20.0-31.0 Albumin [Mass/volume] in Serum or Plasma by Bromocresol green (BCG) dye binding method 2024-08-22 17:52:20 3.9 g/dL F 3.4-4.8 Protein [Mass/volume] in Serum or Plasma 2024-08-22 17:52:20 5.6 g/dL F 5.7-8.2 Potassium [Moles/volume] in Serum or Plasma 2024-06-08 02:36:57 5.9 mEq/L F 3.5-5.5 Potassium [Moles/volume] in Serum or Plasma 2024-06-08 02:36:57 5.9 mEq/L F 3.5-5.5 Potassium [Moles/volume] in Serum or Plasma 2024-06-08 02:36:57 5.9 mEq/L F 3.5-5.5 VLDL-CHOL(CALC) 2024-06-07 21:13:06 29 mg/dL F 0.0-29.0 LDL-CHOLESTEROL 2024-06-07 21:13:06 54 mg/dL F 0.0-99.0 GLOBULIN 2024-06-07 21:13:06 2 g/dL F 0.9-5.0 A/G RATIO 2024-06-07 21:13:06 2 Calc F 1.0-2.5 CHOL/HDL RATIO 2024-06-07 21:13:06 2.8 Calc F 3.3-5.0 VLDL-CHOL(CALC) 2024-06-07 21:13:06 29 mg/dL F 0.0-29.0 LDL-CHOLESTEROL 2024-06-07 21:13:06 54 mg/dL F 0.0-99.0 GLOBULIN 2024-06-07 21:13:06 2 g/dL F 0.9-5.0 A/G RATIO 2024-06-07 21:13:06 2 Calc F 1.0-2.5 CHOL/HDL RATIO 2024-06-07 21:13:06 2.8 Calc F 3.3-5.0 A/G RATIO 2024-06-07 21:13:06 2 Calc F 1.0-2.5 GLOBULIN 2024-06-07 21:13:06 2 g/dL F 0.9-5.0 LDL-CHOLESTEROL 2024-06-07 21:13:06 54 mg/dL F 0.0-99.0 VLDL-CHOL(CALC) 2024-06-07 21:13:06 29 mg/dL F 0.0-29.0 CHOL/HDL RATIO 2024-06-07 21:13:06 2.8 Calc F 3.3-5.0 Cholesterol [Mass/volume] in Serum or Plasma 2024-06-07 21:12:11 130 mg/dL F 0.0-199.0 Protein [Mass/volume] in Serum or Plasma 2024-06-07 21:12:11 146 mg/dL F 0.0-149.0 Lactate dehydrogenase [Enzymatic activity/volume] in Serum or Plasma 2024-06-07 21:12:11 228 U/L F 120.0-246.0 Bicarbonate [Moles/volume] in Serum or Plasma 2024-06-07 21:12:11 28 mEq/L F 20.0-31.0 Albumin [Mass/volume] in Serum or Plasma by Bromocresol green (BCG) dye binding method 2024-06-07 21:12:11 4 g/dL F 3.4-4.8 Cholesterol in HDL [Mass/volume] in Serum or Plasma 2024-06-07 21:12:11 47 mg/dL F 40.0-60.0 Protein [Mass/volume] in Serum or Plasma 2024-06-07 21:12:11 6 g/dL F 5.7-8.2 Cholesterol [Mass/volume] in Serum or Plasma 2024-06-07 21:12:11 130 mg/dL F 0.0-199.0 Protein [Mass/volume] in Serum or Plasma 2024-06-07 21:12:11 146 mg/dL F 0.0-149.0 Lactate dehydrogenase [Enzymatic activity/volume] in Serum or Plasma 2024-06-07 21:12:11 228 U/L F 120.0-246.0 Bicarbonate [Moles/volume] in Serum or Plasma 2024-06-07 21:12:11 28 mEq/L F 20.0-31.0 Albumin [Mass/volume] in Serum or Plasma by Bromocresol green (BCG) dye binding method 2024-06-07 21:12:11 4 g/dL F 3.4-4.8 Protein [Mass/volume] in Serum or Plasma 2024-06-07 21:12:11 6 g/dL F 5.7-8.2 Cholesterol in HDL [Mass/volume] in Serum or Plasma 2024-06-07 21:12:11 47 mg/dL F 40.0-60.0 Albumin [Mass/volume] in Serum or Plasma by Bromocresol green (BCG) dye binding method 2024-06-07 21:12:11 4 g/dL F 3.4-4.8 Cholesterol [Mass/volume] in Serum or Plasma 2024-06-07 21:12:11 130 mg/dL F 0.0-199.0 Bicarbonate [Moles/volume] in Serum or Plasma 2024-06-07 21:12:11 28 mEq/L F 20.0-31.0 Lactate dehydrogenase [Enzymatic activity/volume] in Serum or Plasma 2024-06-07 21:12:11 228 U/L F 120.0-246.0 Protein [Mass/volume] in Serum or Plasma 2024-06-07 21:12:11 146 mg/dL F 0.0-149.0 Protein [Mass/volume] in Serum or Plasma 2024-06-07 21:12:11 6 g/dL F 5.7-8.2 Cholesterol in HDL [Mass/volume] in Serum or Plasma 2024-06-07 21:12:11 47 mg/dL F 40.0-60.0 Potassium [Moles/volume] in Serum or Plasma 2024-06-04 07:45:41 5 mEq/L F 3.5-5.5 Potassium [Moles/volume] in Serum or Plasma 2024-06-04 07:45:41 5 mEq/L F 3.5-5.5 A/G RATIO 2024-06-04 03:31:46 1.8 Calc F 1.0-2.5 GLOBULIN 2024-06-04 03:31:46 2.3 g/dL F 0.9-5.0 A/G RATIO 2024-06-04 03:31:46 1.8 Calc F 1.0-2.5 GLOBULIN 2024-06-04 03:31:46 2.3 g/dL F 0.9-5.0 Lactate dehydrogenase [Enzymatic activity/volume] in Serum or Plasma 2024-06-04 03:30:28 223 U/L F 120.0-246.0 Bicarbonate [Moles/volume] in Serum or Plasma 2024-06-04 03:30:28 28 mEq/L F 20.0-31.0 Albumin [Mass/volume] in Serum or Plasma by Bromocresol green (BCG) dye binding method 2024-06-04 03:30:28 4.1 g/dL F 3.4-4.8 Protein [Mass/volume] in Serum or Plasma 2024-06-04 03:30:28 6.4 g/dL F 5.7-8.2 Glucose [Mass/volume] in Serum or Plasma 2024-06-04 03:30:28 163 mg/dL F 70.0-99.0 Bicarbonate [Moles/volume] in Serum or Plasma 2024-06-04 03:30:28 28 mEq/L F 20.0-31.0 Albumin [Mass/volume] in Serum or Plasma by Bromocresol green (BCG) dye binding method 2024-06-04 03:30:28 4.1 g/dL F 3.4-4.8 Glucose [Mass/volume] in Serum or Plasma 2024-06-04 03:30:28 163 mg/dL F 70.0-99.0 Lactate dehydrogenase [Enzymatic activity/volume] in Serum or Plasma 2024-06-04 03:30:28 223 U/L F 120.0-246.0 Protein [Mass/volume] in Serum or Plasma 2024-06-04 03:30:28 6.4 g/dL F 5.7-8.2 Potassium [Moles/volume] in Serum or Plasma 2024-05-06 15:58:43 6.1 mEq/L F 3.5-5.5 A/G RATIO 2024-05-06 13:06:32 2 Calc F 1.0-2.5 GLOBULIN 2024-05-06 13:06:32 2.1 g/dL F 0.9-5.0 Lactate dehydrogenase [Enzymatic activity/volume] in Serum or Plasma 2024-05-06 13:06:23 207 U/L F 120.0-246.0 Albumin [Mass/volume] in Serum or Plasma by Bromocresol green (BCG) dye binding method 2024-05-06 13:06:23 4.3 g/dL F 3.4-4.8 Bicarbonate [Moles/volume] in Serum or Plasma 2024-05-06 13:06:22 30 mEq/L F 20.0-31.0 Protein [Mass/volume] in Serum or Plasma 2024-05-06 13:06:22 6.4 g/dL F 5.7-8.2 Glucose [Mass/volume] in Serum or Plasma 2024-05-06 13:06:22 152 mg/dL F 70.0-99.0 Lactate dehydrogenase [Enzymatic activity/volume] in Serum or Plasma 2024-04-02 04:37:45 F Recollect - Hemolyzed specimen Lactate dehydrogenase [Enzymatic activity/volume] in Serum or Plasma 2024-04-02 04:37:45 F Recollect - Hemolyzed specimen Bicarbonate [Moles/volume] in Serum or Plasma 2024-04-01 23:29:22 26 mEq/L F 20.0-31.0 Albumin [Mass/volume] in Serum or Plasma by Bromocresol green (BCG) dye binding method 2024-04-01 23:29:22 4.3 g/dL F 3.4-4.8 Protein [Mass/volume] in Serum or Plasma 2024-04-01 23:29:22 6.7 g/dL F 5.7-8.2 Glucose [Mass/volume] in Serum or Plasma 2024-04-01 23:29:22 156 mg/dL F 70.0-99.0 Bicarbonate [Moles/volume] in Serum or Plasma 2024-04-01 23:29:22 26 mEq/L F 20.0-31.0 Albumin [Mass/volume] in Serum or Plasma by Bromocresol green (BCG) dye binding method 2024-04-01 23:29:22 4.3 g/dL F 3.4-4.8 Protein [Mass/volume] in Serum or Plasma 2024-04-01 23:29:22 6.7 g/dL F 5.7-8.2 Glucose [Mass/volume] in Serum or Plasma 2024-04-01 23:29:22 156 mg/dL F 70.0-99.0 A/G RATIO 2024-04-01 23:29:09 F Recollect - Hemolyzed specimen GLOBULIN 2024-04-01 23:29:09 F Recollect - Hemolyzed specimen A/G RATIO 2024-04-01 23:29:09 F Recollect - Hemolyzed specimen GLOBULIN 2024-04-01 23:29:09 F Recollect - Hemolyzed specimen Potassium [Moles/volume] in Serum or Plasma 2024-04-01 23:28:09 F Recollect - Hemolyzed specimen Potassium [Moles/volume] in Serum or Plasma 2024-04-01 23:28:09 F Recollect - Hemolyzed specimen Potassium [Moles/volume] in Serum or Plasma 2024-03-05 07:04:56 5.1 mEq/L F 3.5-5.5 Potassium [Moles/volume] in Serum or Plasma 2024-03-05 07:04:56 5.1 mEq/L F 3.5-5.5 GLOBULIN 2024-03-05 00:38:32 2.1 g/dL F 0.9-5.0 A/G RATIO 2024-03-05 00:38:32 2 Calc F 1.0-2.5 GLOBULIN 2024-03-05 00:38:32 2.1 g/dL F 0.9-5.0 A/G RATIO 2024-03-05 00:38:32 2 Calc F 1.0-2.5 Lactate dehydrogenase [Enzymatic activity/volume] in Serum or Plasma 2024-03-05 00:37:33 204 U/L F 120.0-246.0 Bicarbonate [Moles/volume] in Serum or Plasma 2024-03-05 00:37:33 26 mEq/L F 20.0-31.0 Albumin [Mass/volume] in Serum or Plasma by Bromocresol green (BCG) dye binding method 2024-03-05 00:37:33 4.3 g/dL F 3.4-4.8 Protein [Mass/volume] in Serum or Plasma 2024-03-05 00:37:33 6.4 g/dL F 5.7-8.2 Glucose [Mass/volume] in Serum or Plasma 2024-03-05 00:37:33 149 mg/dL F 70.0-99.0 Lactate dehydrogenase [Enzymatic activity/volume] in Serum or Plasma 2024-03-05 00:37:33 204 U/L F 120.0-246.0 Bicarbonate [Moles/volume] in Serum or Plasma 2024-03-05 00:37:33 26 mEq/L F 20.0-31.0 Albumin [Mass/volume] in Serum or Plasma by Bromocresol green (BCG) dye binding method 2024-03-05 00:37:33 4.3 g/dL F 3.4-4.8 Protein [Mass/volume] in Serum or Plasma 2024-03-05 00:37:33 6.4 g/dL F 5.7-8.2 Glucose [Mass/volume] in Serum or Plasma 2024-03-05 00:37:33 149 mg/dL F 70.0-99.0 Potassium [Moles/volume] in Serum or Plasma 2024-01-30 07:28:53 5.6 mEq/L F 3.5-5.5 Potassium [Moles/volume] in Serum or Plasma 2024-01-30 07:28:53 5.6 mEq/L F 3.5-5.5 A/G RATIO 2024-01-29 20:56:55 2.1 Calc F 1.0-2.5 GLOBULIN 2024-01-29 20:56:55 2 g/dL F 0.9-5.0 A/G RATIO 2024-01-29 20:56:55 2.1 Calc F 1.0-2.5 GLOBULIN 2024-01-29 20:56:55 2 g/dL F 0.9-5.0 Albumin [Mass/volume] in Serum or Plasma by Bromocresol green (BCG) dye binding method 2024-01-29 20:56:35 4.2 g/dL F 3.4-4.8 Bicarbonate [Moles/volume] in Serum or Plasma 2024-01-29 20:56:35 25 mEq/L F 20.0-31.0 Glucose [Mass/volume] in Serum or Plasma 2024-01-29 20:56:35 170 mg/dL F 70.0-99.0 Lactate dehydrogenase [Enzymatic activity/volume] in Serum or Plasma 2024-01-29 20:56:35 200 U/L F 120.0-246.0 Protein [Mass/volume] in Serum or Plasma 2024-01-29 20:56:35 6.2 g/dL F 5.7-8.2 Lactate dehydrogenase [Enzymatic activity/volume] in Serum or Plasma 2024-01-29 20:56:35 200 U/L F 120.0-246.0 Bicarbonate [Moles/volume] in Serum or Plasma 2024-01-29 20:56:35 25 mEq/L F 20.0-31.0 Albumin [Mass/volume] in Serum or Plasma by Bromocresol green (BCG) dye binding method 2024-01-29 20:56:35 4.2 g/dL F 3.4-4.8 Protein [Mass/volume] in Serum or Plasma 2024-01-29 20:56:35 6.2 g/dL F 5.7-8.2 Glucose [Mass/volume] in Serum or Plasma 2024-01-29 20:56:35 170 mg/dL F 70.0-99.0 Potassium [Moles/volume] in Serum or Plasma 2024-01-02 06:46:34 6 mEq/L F 3.5-5.5 Potassium [Moles/volume] in Serum or Plasma 2024-01-02 06:46:34 6 mEq/L F 3.5-5.5 GLOBULIN 2024-01-02 03:12:46 2.1 g/dL F 0.9-5.0 A/G RATIO 2024-01-02 03:12:46 2 Calc F 1.0-2.5 GLOBULIN 2024-01-02 03:12:46 2.1 g/dL F 0.9-5.0 A/G RATIO 2024-01-02 03:12:46 2 Calc F 1.0-2.5 Lactate dehydrogenase [Enzymatic activity/volume] in Serum or Plasma 2024-01-02 03:12:40 201 U/L F 120.0-246.0 Bicarbonate [Moles/volume] in Serum or Plasma 2024-01-02 03:12:40 23 mEq/L F 20.0-31.0 Albumin [Mass/volume] in Serum or Plasma by Bromocresol green (BCG) dye binding method 2024-01-02 03:12:40 4.2 g/dL F 3.4-4.8 Protein [Mass/volume] in Serum or Plasma 2024-01-02 03:12:40 6.3 g/dL F 5.7-8.2 Glucose [Mass/volume] in Serum or Plasma 2024-01-02 03:12:40 142 mg/dL F 70.0-99.0 Lactate dehydrogenase [Enzymatic activity/volume] in Serum or Plasma 2024-01-02 03:12:40 201 U/L F 120.0-246.0 Bicarbonate [Moles/volume] in Serum or Plasma 2024-01-02 03:12:40 23 mEq/L F 20.0-31.0 Albumin [Mass/volume] in Serum or Plasma by Bromocresol green (BCG) dye binding method 2024-01-02 03:12:40 4.2 g/dL F 3.4-4.8 Protein [Mass/volume] in Serum or Plasma 2024-01-02 03:12:40 6.3 g/dL F 5.7-8.2 Glucose [Mass/volume] in Serum or Plasma 2024-01-02 03:12:40 142 mg/dL F 70.0-99.0 Potassium [Moles/volume] in Serum or Plasma 2023-12-06 15:53:30 4.9 mEq/L F 3.5-5.5 Potassium [Moles/volume] in Serum or Plasma 2023-12-06 15:53:30 4.9 mEq/L F 3.5-5.5 Potassium [Moles/volume] in Serum or Plasma 2023-12-06 15:53:30 4.9 mEq/L F 3.5-5.5 VLDL-CHOL(CALC) 2023-12-06 14:56:15 17 mg/dL F 0.0-29.0 LDL-CHOLESTEROL 2023-12-06 14:56:15 44 mg/dL F 0.0-99.0 GLOBULIN 2023-12-06 14:56:15 2 g/dL F 0.9-5.0 A/G RATIO 2023-12-06 14:56:15 2.1 Calc F 1.0-2.5 CHOL/HDL RATIO 2023-12-06 14:56:15 2.6 Calc F 3.3-5.0 VLDL-CHOL(CALC) 2023-12-06 14:56:15 17 mg/dL F 0.0-29.0 LDL-CHOLESTEROL 2023-12-06 14:56:15 44 mg/dL F 0.0-99.0 GLOBULIN 2023-12-06 14:56:15 2 g/dL F 0.9-5.0 A/G RATIO 2023-12-06 14:56:15 2.1 Calc F 1.0-2.5 CHOL/HDL RATIO 2023-12-06 14:56:15 2.6 Calc F 3.3-5.0 A/G RATIO 2023-12-06 14:56:15 2.1 Calc F 1.0-2.5 GLOBULIN 2023-12-06 14:56:15 2 g/dL F 0.9-5.0 LDL-CHOLESTEROL 2023-12-06 14:56:15 44 mg/dL F 0.0-99.0 VLDL-CHOL(CALC) 2023-12-06 14:56:15 17 mg/dL F 0.0-29.0 CHOL/HDL RATIO 2023-12-06 14:56:15 2.6 Calc F 3.3-5.0 Protein [Mass/volume] in Serum or Plasma 2023-12-06 14:55:32 83 mg/dL F 0.0-149.0 Cholesterol [Mass/volume] in Serum or Plasma 2023-12-06 14:55:32 100 mg/dL F 0.0-199.0 Lactate dehydrogenase [Enzymatic activity/volume] in Serum or Plasma 2023-12-06 14:55:32 210 U/L F 120.0-246.0 Bicarbonate [Moles/volume] in Serum or Plasma 2023-12-06 14:55:32 30 mEq/L F 20.0-31.0 Albumin [Mass/volume] in Serum or Plasma by Bromocresol green (BCG) dye binding method 2023-12-06 14:55:32 4.2 g/dL F 3.4-4.8 Cholesterol in HDL [Mass/volume] in Serum or Plasma 2023-12-06 14:55:32 39 mg/dL F 40.0-60.0 Protein [Mass/volume] in Serum or Plasma 2023-12-06 14:55:32 6.2 g/dL F 5.7-8.2 Glucose [Mass/volume] in Serum or Plasma 2023-12-06 14:55:32 186 mg/dL F 70.0-99.0 Cholesterol [Mass/volume] in Serum or Plasma 2023-12-06 14:55:32 100 mg/dL F 0.0-199.0 Protein [Mass/volume] in Serum or Plasma 2023-12-06 14:55:32 83 mg/dL F 0.0-149.0 Lactate dehydrogenase [Enzymatic activity/volume] in Serum or Plasma 2023-12-06 14:55:32 210 U/L F 120.0-246.0 Bicarbonate [Moles/volume] in Serum or Plasma 2023-12-06 14:55:32 30 mEq/L F 20.0-31.0 Albumin [Mass/volume] in Serum or Plasma by Bromocresol green (BCG) dye binding method 2023-12-06 14:55:32 4.2 g/dL F 3.4-4.8 Cholesterol in HDL [Mass/volume] in Serum or Plasma 2023-12-06 14:55:32 39 mg/dL F 40.0-60.0 Protein [Mass/volume] in Serum or Plasma 2023-12-06 14:55:32 6.2 g/dL F 5.7-8.2 Glucose [Mass/volume] in Serum or Plasma 2023-12-06 14:55:32 186 mg/dL F 70.0-99.0 Albumin [Mass/volume] in Serum or Plasma by Bromocresol green (BCG) dye binding method 2023-12-06 14:55:32 4.2 g/dL F 3.4-4.8 Cholesterol [Mass/volume] in Serum or Plasma 2023-12-06 14:55:32 100 mg/dL F 0.0-199.0 Bicarbonate [Moles/volume] in Serum or Plasma 2023-12-06 14:55:32 30 mEq/L F 20.0-31.0 Glucose [Mass/volume] in Serum or Plasma 2023-12-06 14:55:32 186 mg/dL F 70.0-99.0 Lactate dehydrogenase [Enzymatic activity/volume] in Serum or Plasma 2023-12-06 14:55:32 210 U/L F 120.0-246.0 Protein [Mass/volume] in Serum or Plasma 2023-12-06 14:55:32 83 mg/dL F 0.0-149.0 Protein [Mass/volume] in Serum or Plasma 2023-12-06 14:55:32 6.2 g/dL F 5.7-8.2 Cholesterol in HDL [Mass/volume] in Serum or Plasma 2023-12-06 14:55:32 39 mg/dL F 40.0-60.0 Potassium [Moles/volume] in Serum or Plasma 2023-10-31 06:49:18 5.7 mEq/L F 3.5-5.5 A/G RATIO 2023-10-30 20:37:08 2 Calc F 1.0-2.5 GLOBULIN 2023-10-30 20:37:08 2.1 g/dL F 0.9-5.0 Lactate dehydrogenase [Enzymatic activity/volume] in Serum or Plasma 2023-10-30 20:36:43 194 U/L F 120.0-246.0 Bicarbonate [Moles/volume] in Serum or Plasma 2023-10-30 20:36:43 24 mEq/L F 20.0-31.0 Albumin [Mass/volume] in Serum or Plasma by Bromocresol green (BCG) dye binding method 2023-10-30 20:36:43 4.1 g/dL F 3.4-4.8 Protein [Mass/volume] in Serum or Plasma 2023-10-30 20:36:43 6.2 g/dL F 5.7-8.2 Glucose [Mass/volume] in Serum or Plasma 2023-10-30 20:36:43 171 mg/dL F 70.0-99.0 Potassium [Moles/volume] in Serum or Plasma 2023-10-03 05:25:15 5.2 mEq/L F 3.5-5.5 Potassium [Moles/volume] in Serum or Plasma 2023-10-03 05:25:15 5.2 mEq/L F 3.5-5.5 Potassium [Moles/volume] in Serum or Plasma 2023-10-03 05:25:15 5.2 mEq/L F 3.5-5.5 A/G RATIO 2023-10-02 19:09:46 1.9 Calc F 1.0-2.5 GLOBULIN 2023-10-02 19:09:46 2.2 g/dL F 0.9-5.0 GLOBULIN 2023-10-02 19:09:46 2.2 g/dL F 0.9-5.0 A/G RATIO 2023-10-02 19:09:46 1.9 Calc F 1.0-2.5 GLOBULIN 2023-10-02 19:09:46 2.2 g/dL F 0.9-5.0 A/G RATIO 2023-10-02 19:09:46 1.9 Calc F 1.0-2.5 Albumin [Mass/volume] in Serum or Plasma by Bromocresol green (BCG) dye binding method 2023-10-02 19:09:36 4.1 g/dL F 3.4-4.8 Bicarbonate [Moles/volume] in Serum or Plasma 2023-10-02 19:09:36 27 mEq/L F 20.0-31.0 Glucose [Mass/volume] in Serum or Plasma 2023-10-02 19:09:36 154 mg/dL F 70.0-99.0 Lactate dehydrogenase [Enzymatic activity/volume] in Serum or Plasma 2023-10-02 19:09:36 206 U/L F 120.0-246.0 Protein [Mass/volume] in Serum or Plasma 2023-10-02 19:09:36 6.3 g/dL F 5.7-8.2 Albumin [Mass/volume] in Serum or Plasma by Bromocresol green (BCG) dye binding method 2023-10-02 19:09:36 4.1 g/dL F 3.4-4.8 Bicarbonate [Moles/volume] in Serum or Plasma 2023-10-02 19:09:36 27 mEq/L F 20.0-31.0 Glucose [Mass/volume] in Serum or Plasma 2023-10-02 19:09:36 154 mg/dL F 70.0-99.0 Lactate dehydrogenase [Enzymatic activity/volume] in Serum or Plasma 2023-10-02 19:09:36 206 U/L F 120.0-246.0 Protein [Mass/volume] in Serum or Plasma 2023-10-02 19:09:36 6.3 g/dL F 5.7-8.2 Lactate dehydrogenase [Enzymatic activity/volume] in Serum or Plasma 2023-10-02 19:09:36 206 U/L F 120.0-246.0 Albumin [Mass/volume] in Serum or Plasma by Bromocresol green (BCG) dye binding method 2023-10-02 19:09:36 4.1 g/dL F 3.4-4.8 Bicarbonate [Moles/volume] in Serum or Plasma 2023-10-02 19:09:36 27 mEq/L F 20.0-31.0 Glucose [Mass/volume] in Serum or Plasma 2023-10-02 19:09:36 154 mg/dL F 70.0-99.0 Protein [Mass/volume] in Serum or Plasma 2023-10-02 19:09:36 6.3 g/dL F 5.7-8.2 Potassium [Moles/volume] in Serum or Plasma 2023-09-05 06:15:28 5.1 mEq/L F 3.5-5.5 Potassium [Moles/volume] in Serum or Plasma 2023-09-05 06:15:28 5.1 mEq/L F 3.5-5.5 Potassium [Moles/volume] in Serum or Plasma 2023-09-05 06:15:28 5.1 mEq/L F 3.5-5.5 A/G RATIO 2023-09-05 02:32:16 2 Calc F 1.0-2.5 GLOBULIN 2023-09-05 02:32:16 2.1 g/dL F 0.9-5.0 GLOBULIN 2023-09-05 02:32:16 2.1 g/dL F 0.9-5.0 A/G RATIO 2023-09-05 02:32:16 2 Calc F 1.0-2.5 GLOBULIN 2023-09-05 02:32:16 2.1 g/dL F 0.9-5.0 A/G RATIO 2023-09-05 02:32:16 2 Calc F 1.0-2.5 Albumin [Mass/volume] in Serum or Plasma by Bromocresol green (BCG) dye binding method 2023-09-05 02:32:09 4.3 g/dL F 3.4-4.8 Bicarbonate [Moles/volume] in Serum or Plasma 2023-09-05 02:32:09 27 mEq/L F 20.0-31.0 Glucose [Mass/volume] in Serum or Plasma 2023-09-05 02:32:09 188 mg/dL F 70.0-99.0 Lactate dehydrogenase [Enzymatic activity/volume] in Serum or Plasma 2023-09-05 02:32:09 245 U/L F 120.0-246.0 Protein [Mass/volume] in Serum or Plasma 2023-09-05 02:32:09 6.4 g/dL F 5.7-8.2 Albumin [Mass/volume] in Serum or Plasma by Bromocresol green (BCG) dye binding method 2023-09-05 02:32:09 4.3 g/dL F 3.4-4.8 Bicarbonate [Moles/volume] in Serum or Plasma 2023-09-05 02:32:09 27 mEq/L F 20.0-31.0 Glucose [Mass/volume] in Serum or Plasma 2023-09-05 02:32:09 188 mg/dL F 70.0-99.0 Lactate dehydrogenase [Enzymatic activity/volume] in Serum or Plasma 2023-09-05 02:32:09 245 U/L F 120.0-246.0 Protein [Mass/volume] in Serum or Plasma 2023-09-05 02:32:09 6.4 g/dL F 5.7-8.2 Lactate dehydrogenase [Enzymatic activity/volume] in Serum or Plasma 2023-09-05 02:32:09 245 U/L F 120.0-246.0 Bicarbonate [Moles/volume] in Serum or Plasma 2023-09-05 02:32:09 27 mEq/L F 20.0-31.0 Albumin [Mass/volume] in Serum or Plasma by Bromocresol green (BCG) dye binding method 2023-09-05 02:32:09 4.3 g/dL F 3.4-4.8 Protein [Mass/volume] in Serum or Plasma 2023-09-05 02:32:09 6.4 g/dL F 5.7-8.2 Glucose [Mass/volume] in Serum or Plasma 2023-09-05 02:32:09 188 mg/dL F 70.0-99.0 Potassium [Moles/volume] in Serum or Plasma 2023-08-03 04:11:42 6 mEq/L F 3.5-5.5 Potassium [Moles/volume] in Serum or Plasma 2023-08-03 04:11:42 6 mEq/L F 3.5-5.5 Potassium [Moles/volume] in Serum or Plasma 2023-08-03 04:11:42 6 mEq/L F 3.5-5.5 GLOBULIN 2023-08-02 23:49:48 2.1 g/dL F 0.9-5.0 A/G RATIO 2023-08-02 23:49:48 2 Calc F 1.0-2.5 A/G RATIO 2023-08-02 23:49:48 2 Calc F 1.0-2.5 GLOBULIN 2023-08-02 23:49:48 2.1 g/dL F 0.9-5.0 A/G RATIO 2023-08-02 23:49:48 2 Calc F 1.0-2.5 GLOBULIN 2023-08-02 23:49:48 2.1 g/dL F 0.9-5.0 Bicarbonate [Moles/volume] in Serum or Plasma 2023-08-02 23:48:47 22 mEq/L F 20.0-31.0 Protein [Mass/volume] in Serum or Plasma 2023-08-02 23:48:47 6.2 g/dL F 5.7-8.2 Glucose [Mass/volume] in Serum or Plasma 2023-08-02 23:48:47 195 mg/dL F 70.0-99.0 Bicarbonate [Moles/volume] in Serum or Plasma 2023-08-02 23:48:47 22 mEq/L F 20.0-31.0 Glucose [Mass/volume] in Serum or Plasma 2023-08-02 23:48:47 195 mg/dL F 70.0-99.0 Protein [Mass/volume] in Serum or Plasma 2023-08-02 23:48:47 6.2 g/dL F 5.7-8.2 Bicarbonate [Moles/volume] in Serum or Plasma 2023-08-02 23:48:47 22 mEq/L F 20.0-31.0 Glucose [Mass/volume] in Serum or Plasma 2023-08-02 23:48:47 195 mg/dL F 70.0-99.0 Protein [Mass/volume] in Serum or Plasma 2023-08-02 23:48:47 6.2 g/dL F 5.7-8.2 Lactate dehydrogenase [Enzymatic activity/volume] in Serum or Plasma 2023-08-02 23:48:44 197 U/L F 120.0-246.0 Albumin [Mass/volume] in Serum or Plasma by Bromocresol green (BCG) dye binding method 2023-08-02 23:48:44 4.1 g/dL F 3.4-4.8 Lactate dehydrogenase [Enzymatic activity/volume] in Serum or Plasma 2023-08-02 23:48:44 197 U/L F 120.0-246.0 Albumin [Mass/volume] in Serum or Plasma by Bromocresol green (BCG) dye binding method 2023-08-02 23:48:44 4.1 g/dL F 3.4-4.8 Albumin [Mass/volume] in Serum or Plasma by Bromocresol green (BCG) dye binding method 2023-08-02 23:48:44 4.1 g/dL F 3.4-4.8 Lactate dehydrogenase [Enzymatic activity/volume] in Serum or Plasma 2023-08-02 23:48:44 197 U/L F 120.0-246.0 Potassium [Moles/volume] in Serum or Plasma 2023-07-06 07:19:25 5.8 mEq/L F 3.5-5.5 Potassium [Moles/volume] in Serum or Plasma 2023-07-06 07:19:25 5.8 mEq/L F 3.5-5.5 Potassium [Moles/volume] in Serum or Plasma 2023-07-06 07:19:25 5.8 mEq/L F 3.5-5.5 GLOBULIN 2023-07-05 22:48:20 2.1 g/dL F 0.9-5.0 A/G RATIO 2023-07-05 22:48:20 1.9 Calc F 1.0-2.5 GLOBULIN 2023-07-05 22:48:20 2.1 g/dL F 0.9-5.0 A/G RATIO 2023-07-05 22:48:20 1.9 Calc F 1.0-2.5 A/G RATIO 2023-07-05 22:48:20 1.9 Calc F 1.0-2.5 GLOBULIN 2023-07-05 22:48:20 2.1 g/dL F 0.9-5.0 Lactate dehydrogenase [Enzymatic activity/volume] in Serum or Plasma 2023-07-05 22:48:17 162 U/L F 120.0-246.0 Bicarbonate [Moles/volume] in Serum or Plasma 2023-07-05 22:48:17 27 mEq/L F 20.0-31.0 Protein [Mass/volume] in Serum or Plasma 2023-07-05 22:48:17 6.1 g/dL F 5.7-8.2 Glucose [Mass/volume] in Serum or Plasma 2023-07-05 22:48:17 153 mg/dL F 70.0-99.0 Lactate dehydrogenase [Enzymatic activity/volume] in Serum or Plasma 2023-07-05 22:48:17 162 U/L F 120.0-246.0 Bicarbonate [Moles/volume] in Serum or Plasma 2023-07-05 22:48:17 27 mEq/L F 20.0-31.0 Protein [Mass/volume] in Serum or Plasma 2023-07-05 22:48:17 6.1 g/dL F 5.7-8.2 Glucose [Mass/volume] in Serum or Plasma 2023-07-05 22:48:17 153 mg/dL F 70.0-99.0 Bicarbonate [Moles/volume] in Serum or Plasma 2023-07-05 22:48:17 27 mEq/L F 20.0-31.0 Glucose [Mass/volume] in Serum or Plasma 2023-07-05 22:48:17 153 mg/dL F 70.0-99.0 Lactate dehydrogenase [Enzymatic activity/volume] in Serum or Plasma 2023-07-05 22:48:17 162 U/L F 120.0-246.0 Protein [Mass/volume] in Serum or Plasma 2023-07-05 22:48:17 6.1 g/dL F 5.7-8.2 Albumin [Mass/volume] in Serum or Plasma by Bromocresol green (BCG) dye binding method 2023-07-05 22:48:11 4 g/dL F 3.4-4.8 Albumin [Mass/volume] in Serum or Plasma by Bromocresol green (BCG) dye binding method 2023-07-05 22:48:11 4 g/dL F 3.4-4.8 Albumin [Mass/volume] in Serum or Plasma by Bromocresol green (BCG) dye binding method 2023-07-05 22:48:11 4 g/dL F 3.4-4.8 A/G RATIO 2023-06-05 21:48:15 1.8 Calc F 1.0-2.5 GLOBULIN 2023-06-05 21:48:15 2.1 g/dL F 0.9-5.0 GLOBULIN 2023-06-05 21:48:15 2.1 g/dL F 0.9-5.0 A/G RATIO 2023-06-05 21:48:15 1.8 Calc F 1.0-2.5 Albumin [Mass/volume] in Serum or Plasma by Bromocresol green (BCG) dye binding method 2023-06-05 21:47:29 3.8 g/dL F 3.4-4.8 Bicarbonate [Moles/volume] in Serum or Plasma 2023-06-05 21:47:29 26 mEq/L F 20.0-31.0 Glucose [Mass/volume] in Serum or Plasma 2023-06-05 21:47:29 197 mg/dL F 70.0-99.0 Lactate dehydrogenase [Enzymatic activity/volume] in Serum or Plasma 2023-06-05 21:47:29 171 U/L F 120.0-246.0 Potassium [Moles/volume] in Serum or Plasma 2023-06-05 21:47:29 5.7 mEq/L F 3.5-5.5 Protein [Mass/volume] in Serum or Plasma 2023-06-05 21:47:29 5.9 g/dL F 5.7-8.2 Bicarbonate [Moles/volume] in Serum or Plasma 2023-06-05 21:47:29 26 mEq/L F 20.0-31.0 Lactate dehydrogenase [Enzymatic activity/volume] in Serum or Plasma 2023-06-05 21:47:29 171 U/L F 120.0-246.0 Albumin [Mass/volume] in Serum or Plasma by Bromocresol green (BCG) dye binding method 2023-06-05 21:47:29 3.8 g/dL F 3.4-4.8 Potassium [Moles/volume] in Serum or Plasma 2023-06-05 21:47:29 5.7 mEq/L F 3.5-5.5 Protein [Mass/volume] in Serum or Plasma 2023-06-05 21:47:29 5.9 g/dL F 5.7-8.2 Glucose [Mass/volume] in Serum or Plasma 2023-06-05 21:47:29 197 mg/dL F 70.0-99.0 GLOBULIN 2023-05-03 17:44:00 2.1 g/dL F 0.9-5.0 A/G RATIO 2023-05-03 17:44:00 1.9 Calc F 1.0-2.5 A/G RATIO 2023-05-03 17:44:00 1.9 Calc F 1.0-2.5 GLOBULIN 2023-05-03 17:44:00 2.1 g/dL F 0.9-5.0 Lactate dehydrogenase [Enzymatic activity/volume] in Serum or Plasma 2023-05-03 17:43:30 162 U/L F 120.0-246.0 Bicarbonate [Moles/volume] in Serum or Plasma 2023-05-03 17:43:30 27 mEq/L F 20.0-31.0 Albumin [Mass/volume] in Serum or Plasma by Bromocresol green (BCG) dye binding method 2023-05-03 17:43:30 4 g/dL F 3.4-4.8 Potassium [Moles/volume] in Serum or Plasma 2023-05-03 17:43:30 5.2 mEq/L F 3.5-5.5 Protein [Mass/volume] in Serum or Plasma 2023-05-03 17:43:30 6.1 g/dL F 5.7-8.2 Glucose [Mass/volume] in Serum or Plasma 2023-05-03 17:43:30 176 mg/dL F 70.0-99.0 Lactate dehydrogenase [Enzymatic activity/volume] in Serum or Plasma 2023-05-03 17:43:30 162 U/L F 120.0-246.0 Bicarbonate [Moles/volume] in Serum or Plasma 2023-05-03 17:43:30 27 mEq/L F 20.0-31.0 Potassium [Moles/volume] in Serum or Plasma 2023-05-03 17:43:30 5.2 mEq/L F 3.5-5.5 Albumin [Mass/volume] in Serum or Plasma by Bromocresol green (BCG) dye binding method 2023-05-03 17:43:30 4 g/dL F 3.4-4.8 Protein [Mass/volume] in Serum or Plasma 2023-05-03 17:43:30 6.1 g/dL F 5.7-8.2 Glucose [Mass/volume] in Serum or Plasma 2023-05-03 17:43:30 176 mg/dL F 70.0-99.0 GLOBULIN 2023-04-03 23:38:56 2.1 g/dL F 0.9-5.0 A/G RATIO 2023-04-03 23:38:56 1.8 Calc F 1.0-2.5 GLOBULIN 2023-04-03 23:38:56 2.1 g/dL F 0.9-5.0 A/G RATIO 2023-04-03 23:38:56 1.8 Calc F 1.0-2.5 Lactate dehydrogenase [Enzymatic activity/volume] in Serum or Plasma 2023-04-03 23:38:34 208 U/L F 120.0-246.0 Bicarbonate [Moles/volume] in Serum or Plasma 2023-04-03 23:38:34 27 mEq/L F 20.0-31.0 Albumin [Mass/volume] in Serum or Plasma by Bromocresol green (BCG) dye binding method 2023-04-03 23:38:34 3.8 g/dL F 3.4-4.8 Potassium [Moles/volume] in Serum or Plasma 2023-04-03 23:38:34 4.6 mEq/L F 3.5-5.5 Glucose [Mass/volume] in Serum or Plasma 2023-04-03 23:38:34 198 mg/dL F 70.0-99.0 Protein [Mass/volume] in Serum or Plasma 2023-04-03 23:38:34 5.9 g/dL F 5.7-8.2 Bicarbonate [Moles/volume] in Serum or Plasma 2023-04-03 23:38:34 27 mEq/L F 20.0-31.0 Lactate dehydrogenase [Enzymatic activity/volume] in Serum or Plasma 2023-04-03 23:38:34 208 U/L F 120.0-246.0 Albumin [Mass/volume] in Serum or Plasma by Bromocresol green (BCG) dye binding method 2023-04-03 23:38:34 3.8 g/dL F 3.4-4.8 Potassium [Moles/volume] in Serum or Plasma 2023-04-03 23:38:34 4.6 mEq/L F 3.5-5.5 Protein [Mass/volume] in Serum or Plasma 2023-04-03 23:38:34 5.9 g/dL F 5.7-8.2 Glucose [Mass/volume] in Serum or Plasma 2023-04-03 23:38:34 198 mg/dL F 70.0-99.0 GLOBULIN 2023-03-06 19:55:37 2.1 g/dL F 0.9-5.0 A/G RATIO 2023-03-06 19:55:37 1.9 Calc F 1.0-2.5 Lactate dehydrogenase [Enzymatic activity/volume] in Serum or Plasma 2023-03-06 19:55:32 191 U/L F 120.0-246.0 Bicarbonate [Moles/volume] in Serum or Plasma 2023-03-06 19:55:32 26 mEq/L F 20.0-31.0 Albumin [Mass/volume] in Serum or Plasma by Bromocresol green (BCG) dye binding method 2023-03-06 19:55:32 3.9 g/dL F 3.4-4.8 Potassium [Moles/volume] in Serum or Plasma 2023-03-06 19:55:32 5.1 mEq/L F 3.5-5.5 Protein [Mass/volume] in Serum or Plasma 2023-03-06 19:55:32 6 g/dL F 5.7-8.2 Glucose [Mass/volume] in Serum or Plasma 2023-03-06 19:55:32 186 mg/dL F 70.0-99.0 GLOBULIN 2023-01-30 23:48:06 2 g/dL F 0.9-5.0 A/G RATIO 2023-01-30 23:48:06 2 Calc F 1.0-2.5 GLOBULIN 2023-01-30 23:48:06 2 g/dL F 0.9-5.0 A/G RATIO 2023-01-30 23:48:06 2 Calc F 1.0-2.5 Lactate dehydrogenase [Enzymatic activity/volume] in Serum or Plasma 2023-01-30 23:47:23 212 U/L F 120.0-246.0 Albumin [Mass/volume] in Serum or Plasma by Bromocresol green (BCG) dye binding method 2023-01-30 23:47:23 4 g/dL F 3.4-4.8 Bicarbonate [Moles/volume] in Serum or Plasma 2023-01-30 23:47:23 27 mEq/L F 20.0-31.0 Potassium [Moles/volume] in Serum or Plasma 2023-01-30 23:47:23 5 mEq/L F 3.5-5.5 Protein [Mass/volume] in Serum or Plasma 2023-01-30 23:47:23 6 g/dL F 5.7-8.2 Glucose [Mass/volume] in Serum or Plasma 2023-01-30 23:47:23 178 mg/dL F 70.0-99.0 Lactate dehydrogenase [Enzymatic activity/volume] in Serum or Plasma 2023-01-30 23:47:23 212 U/L F 120.0-246.0 Bicarbonate [Moles/volume] in Serum or Plasma 2023-01-30 23:47:23 27 mEq/L F 20.0-31.0 Potassium [Moles/volume] in Serum or Plasma 2023-01-30 23:47:23 5 mEq/L F 3.5-5.5 Albumin [Mass/volume] in Serum or Plasma by Bromocresol green (BCG) dye binding method 2023-01-30 23:47:23 4 g/dL F 3.4-4.8 Protein [Mass/volume] in Serum or Plasma 2023-01-30 23:47:23 6 g/dL F 5.7-8.2 Glucose [Mass/volume] in Serum or Plasma 2023-01-30 23:47:23 178 mg/dL F 70.0-99.0 GLOBULIN 2023-01-02 23:20:11 1.8 g/dL F 0.9-5.0 A/G RATIO 2023-01-02 23:20:11 2.1 Calc F 1.0-2.5 Lactate dehydrogenase [Enzymatic activity/volume] in Serum or Plasma 2023-01-02 23:19:18 248 U/L F 120.0-246.0 Bicarbonate [Moles/volume] in Serum or Plasma 2023-01-02 23:19:18 30 mEq/L F 20.0-31.0 Potassium [Moles/volume] in Serum or Plasma 2023-01-02 23:19:18 4.5 mEq/L F 3.5-5.5 Albumin [Mass/volume] in Serum or Plasma by Bromocresol green (BCG) dye binding method 2023-01-02 23:19:18 3.8 g/dL F 3.4-4.8 Protein [Mass/volume] in Serum or Plasma 2023-01-02 23:19:18 5.6 g/dL F 5.7-8.2 Glucose [Mass/volume] in Serum or Plasma 2023-01-02 23:19:18 162 mg/dL F 70.0-99.0 GLOBULIN 2022-11-28 21:59:10 2.1 g/dL F 0.9-5.0 A/G RATIO 2022-11-28 21:59:10 1.9 Calc F 1.0-2.5 GLOBULIN 2022-11-28 21:59:10 2.1 g/dL F 0.9-5.0 A/G RATIO 2022-11-28 21:59:10 1.9 Calc F 1.0-2.5 Lactate dehydrogenase [Enzymatic activity/volume] in Serum or Plasma 2022-11-28 21:58:23 218 U/L F 120.0-246.0 Bicarbonate [Moles/volume] in Serum or Plasma 2022-11-28 21:58:23 25 mEq/L F 20.0-31.0 Potassium [Moles/volume] in Serum or Plasma 2022-11-28 21:58:23 7 mEq/L F 3.5-5.5 Albumin [Mass/volume] in Serum or Plasma by Bromocresol green (BCG) dye binding method 2022-11-28 21:58:23 4 g/dL F 3.4-4.8 Protein [Mass/volume] in Serum or Plasma 2022-11-28 21:58:23 6.1 g/dL F 5.7-8.2 Glucose [Mass/volume] in Serum or Plasma 2022-11-28 21:58:23 188 mg/dL F 70.0-99.0 Lactate dehydrogenase [Enzymatic activity/volume] in Serum or Plasma 2022-11-28 21:58:23 218 U/L F 120.0-246.0 Bicarbonate [Moles/volume] in Serum or Plasma 2022-11-28 21:58:23 25 mEq/L F 20.0-31.0 Albumin [Mass/volume] in Serum or Plasma by Bromocresol green (BCG) dye binding method 2022-11-28 21:58:23 4 g/dL F 3.4-4.8 Potassium [Moles/volume] in Serum or Plasma 2022-11-28 21:58:23 7 mEq/L F 3.5-5.5 Protein [Mass/volume] in Serum or Plasma 2022-11-28 21:58:23 6.1 g/dL F 5.7-8.2 Glucose [Mass/volume] in Serum or Plasma 2022-11-28 21:58:23 188 mg/dL F 70.0-99.0 VLDL-CHOL(CALC) 2022-10-11 05:33:19 29 mg/dL F 0.0-29.0 LDL-CHOLESTEROL 2022-10-11 05:33:19 45 mg/dL F 0.0-99.0 GLOBULIN 2022-10-11 05:33:19 2.1 g/dL F 0.9-5.0 A/G RATIO 2022-10-11 05:33:19 1.8 Calc F 1.0-2.5 CHOL/HDL RATIO 2022-10-11 05:33:19 2.8 Calc F 3.3-5.0 VLDL-CHOL(CALC) 2022-10-11 05:33:19 29 mg/dL F 0.0-29.0 LDL-CHOLESTEROL 2022-10-11 05:33:19 45 mg/dL F 0.0-99.0 GLOBULIN 2022-10-11 05:33:19 2.1 g/dL F 0.9-5.0 A/G RATIO 2022-10-11 05:33:19 1.8 Calc F 1.0-2.5 CHOL/HDL RATIO 2022-10-11 05:33:19 2.8 Calc F 3.3-5.0 A/G RATIO 2022-10-11 05:33:19 1.8 Calc F 1.0-2.5 GLOBULIN 2022-10-11 05:33:19 2.1 g/dL F 0.9-5.0 LDL-CHOLESTEROL 2022-10-11 05:33:19 45 mg/dL F 0.0-99.0 VLDL-CHOL(CALC) 2022-10-11 05:33:19 29 mg/dL F 0.0-29.0 CHOL/HDL RATIO 2022-10-11 05:33:19 2.8 Calc F 3.3-5.0 Protein [Mass/volume] in Serum or Plasma 2022-10-11 05:32:19 145 mg/dL F 0.0-149.0 Cholesterol [Mass/volume] in Serum or Plasma 2022-10-11 05:32:19 115 mg/dL F 0.0-199.0 Lactate dehydrogenase [Enzymatic activity/volume] in Serum or Plasma 2022-10-11 05:32:19 217 U/L F 120.0-246.0 Bicarbonate [Moles/volume] in Serum or Plasma 2022-10-11 05:32:19 25 mEq/L F 20.0-31.0 Albumin [Mass/volume] in Serum or Plasma by Bromocresol green (BCG) dye binding method 2022-10-11 05:32:19 3.8 g/dL F 3.4-4.8 Potassium [Moles/volume] in Serum or Plasma 2022-10-11 05:32:19 5.5 mEq/L F 3.5-5.5 Cholesterol in HDL [Mass/volume] in Serum or Plasma 2022-10-11 05:32:19 41 mg/dL F 40.0-60.0 Protein [Mass/volume] in Serum or Plasma 2022-10-11 05:32:19 5.9 g/dL F 5.7-8.2 Glucose [Mass/volume] in Serum or Plasma 2022-10-11 05:32:19 196 mg/dL F 70.0-99.0 Protein [Mass/volume] in Serum or Plasma 2022-10-11 05:32:19 145 mg/dL F 0.0-149.0 Cholesterol [Mass/volume] in Serum or Plasma 2022-10-11 05:32:19 115 mg/dL F 0.0-199.0 Lactate dehydrogenase [Enzymatic activity/volume] in Serum or Plasma 2022-10-11 05:32:19 217 U/L F 120.0-246.0 Bicarbonate [Moles/volume] in Serum or Plasma 2022-10-11 05:32:19 25 mEq/L F 20.0-31.0 Potassium [Moles/volume] in Serum or Plasma 2022-10-11 05:32:19 5.5 mEq/L F 3.5-5.5 Albumin [Mass/volume] in Serum or Plasma by Bromocresol green (BCG) dye binding method 2022-10-11 05:32:19 3.8 g/dL F 3.4-4.8 Cholesterol in HDL [Mass/volume] in Serum or Plasma 2022-10-11 05:32:19 41 mg/dL F 40.0-60.0 Protein [Mass/volume] in Serum or Plasma 2022-10-11 05:32:19 5.9 g/dL F 5.7-8.2 Glucose [Mass/volume] in Serum or Plasma 2022-10-11 05:32:19 196 mg/dL F 70.0-99.0 Albumin [Mass/volume] in Serum or Plasma by Bromocresol green (BCG) dye binding method 2022-10-11 05:32:19 3.8 g/dL F 3.4-4.8 Cholesterol [Mass/volume] in Serum or Plasma 2022-10-11 05:32:19 115 mg/dL F 0.0-199.0 Bicarbonate [Moles/volume] in Serum or Plasma 2022-10-11 05:32:19 25 mEq/L F 20.0-31.0 Glucose [Mass/volume] in Serum or Plasma 2022-10-11 05:32:19 196 mg/dL F 70.0-99.0 Lactate dehydrogenase [Enzymatic activity/volume] in Serum or Plasma 2022-10-11 05:32:19 217 U/L F 120.0-246.0 Potassium [Moles/volume] in Serum or Plasma 2022-10-11 05:32:19 5.5 mEq/L F 3.5-5.5 Protein [Mass/volume] in Serum or Plasma 2022-10-11 05:32:19 145 mg/dL F 0.0-149.0 Protein [Mass/volume] in Serum or Plasma 2022-10-11 05:32:19 5.9 g/dL F 5.7-8.2 Cholesterol in HDL [Mass/volume] in Serum or Plasma 2022-10-11 05:32:19 41 mg/dL F 40.0-60.0 GLOBULIN 2022-09-28 20:11:01 2 g/dL F 0.9-5.0 A/G RATIO 2022-09-28 20:11:01 2.1 Calc F 1.0-2.5 Bicarbonate [Moles/volume] in Serum or Plasma 2022-09-28 20:10:21 24 mEq/L F 20.0-31.0 Lactate dehydrogenase [Enzymatic activity/volume] in Serum or Plasma 2022-09-28 20:10:21 212 U/L F 120.0-246.0 Potassium [Moles/volume] in Serum or Plasma 2022-09-28 20:10:21 5.9 mEq/L F 3.5-5.5 Albumin [Mass/volume] in Serum or Plasma by Bromocresol green (BCG) dye binding method 2022-09-28 20:10:21 4.1 g/dL F 3.4-4.8 Glucose [Mass/volume] in Serum or Plasma 2022-09-28 20:10:21 210 mg/dL F 70.0-99.0 Protein [Mass/volume] in Serum or Plasma 2022-09-28 20:10:21 6.1 g/dL F 5.7-8.2 A/G RATIO 2022-08-31 13:54:10 2.1 Calc F 1.0-2.5 GLOBULIN 2022-08-31 13:54:10 1.9 g/dL F 0.9-5.0 GLOBULIN 2022-08-31 13:54:10 1.9 g/dL F 0.9-5.0 A/G RATIO 2022-08-31 13:54:10 2.1 Calc F 1.0-2.5 Lactate dehydrogenase [Enzymatic activity/volume] in Serum or Plasma 2022-08-31 13:53:59 222 U/L F 120.0-246.0 Potassium [Moles/volume] in Serum or Plasma 2022-08-31 13:53:59 5.9 mEq/L F 3.5-5.5 Albumin [Mass/volume] in Serum or Plasma by Bromocresol green (BCG) dye binding method 2022-08-31 13:53:59 4 g/dL F 3.4-4.8 Lactate dehydrogenase [Enzymatic activity/volume] in Serum or Plasma 2022-08-31 13:53:59 222 U/L F 120.0-246.0 Albumin [Mass/volume] in Serum or Plasma by Bromocresol green (BCG) dye binding method 2022-08-31 13:53:59 4 g/dL F 3.4-4.8 Potassium [Moles/volume] in Serum or Plasma 2022-08-31 13:53:59 5.9 mEq/L F 3.5-5.5 Bicarbonate [Moles/volume] in Serum or Plasma 2022-08-31 13:53:58 28 mEq/L F 20.0-31.0 Glucose [Mass/volume] in Serum or Plasma 2022-08-31 13:53:58 131 mg/dL F 70.0-99.0 Protein [Mass/volume] in Serum or Plasma 2022-08-31 13:53:58 5.9 g/dL F 5.7-8.2 Bicarbonate [Moles/volume] in Serum or Plasma 2022-08-31 13:53:58 28 mEq/L F 20.0-31.0 Protein [Mass/volume] in Serum or Plasma 2022-08-31 13:53:58 5.9 g/dL F 5.7-8.2 Glucose [Mass/volume] in Serum or Plasma 2022-08-31 13:53:58 131 mg/dL F 70.0-99.0 GLOBULIN 2022-07-27 16:55:39 2.2 g/dL F 0.9-5.0 A/G RATIO 2022-07-27 16:55:39 2 Calc F 1.0-2.5 A/G RATIO 2022-07-27 16:55:39 2 Calc F 1.0-2.5 GLOBULIN 2022-07-27 16:55:39 2.2 g/dL F 0.9-5.0 A/G RATIO 2022-07-27 16:55:39 2 Calc F 1.0-2.5 GLOBULIN 2022-07-27 16:55:39 2.2 g/dL F 0.9-5.0 Glucose [Mass/volume] in Serum or Plasma 2022-07-27 16:54:50 247 mg/dL F 70.0-99.0 Glucose [Mass/volume] in Serum or Plasma 2022-07-27 16:54:50 247 mg/dL F 70.0-99.0 Glucose [Mass/volume] in Serum or Plasma 2022-07-27 16:54:50 247 mg/dL F 70.0-99.0 Lactate dehydrogenase [Enzymatic activity/volume] in Serum or Plasma 2022-07-27 16:54:48 176 U/L F 120.0-246.0 Bicarbonate [Moles/volume] in Serum or Plasma 2022-07-27 16:54:48 27 mEq/L F 20.0-31.0 Albumin [Mass/volume] in Serum or Plasma by Bromocresol green (BCG) dye binding method 2022-07-27 16:54:48 4.3 g/dL F 3.4-4.8 Potassium [Moles/volume] in Serum or Plasma 2022-07-27 16:54:48 4.8 mEq/L F 3.5-5.5 Protein [Mass/volume] in Serum or Plasma 2022-07-27 16:54:48 6.5 g/dL F 5.7-8.2 Albumin [Mass/volume] in Serum or Plasma by Bromocresol green (BCG) dye binding method 2022-07-27 16:54:48 4.3 g/dL F 3.4-4.8 Bicarbonate [Moles/volume] in Serum or Plasma 2022-07-27 16:54:48 27 mEq/L F 20.0-31.0 Potassium [Moles/volume] in Serum or Plasma 2022-07-27 16:54:48 4.8 mEq/L F 3.5-5.5 Lactate dehydrogenase [Enzymatic activity/volume] in Serum or Plasma 2022-07-27 16:54:48 176 U/L F 120.0-246.0 Protein [Mass/volume] in Serum or Plasma 2022-07-27 16:54:48 6.5 g/dL F 5.7-8.2 Albumin [Mass/volume] in Serum or Plasma by Bromocresol green (BCG) dye binding method 2022-07-27 16:54:48 4.3 g/dL F 3.4-4.8 Bicarbonate [Moles/volume] in Serum or Plasma 2022-07-27 16:54:48 27 mEq/L F 20.0-31.0 Potassium [Moles/volume] in Serum or Plasma 2022-07-27 16:54:48 4.8 mEq/L F 3.5-5.5 Lactate dehydrogenase [Enzymatic activity/volume] in Serum or Plasma 2022-07-27 16:54:48 176 U/L F 120.0-246.0 Protein [Mass/volume] in Serum or Plasma 2022-07-27 16:54:48 6.5 g/dL F 5.7-8.2 GLOBULIN 2022-06-29 14:40:35 2.1 g/dL F 0.9-5.0 A/G RATIO 2022-06-29 14:40:35 2 Calc F 1.0-2.5 A/G RATIO 2022-06-29 14:40:35 2 Calc F 1.0-2.5 GLOBULIN 2022-06-29 14:40:35 2.1 g/dL F 0.9-5.0 Lactate dehydrogenase [Enzymatic activity/volume] in Serum or Plasma 2022-06-29 14:39:43 177 U/L F 120.0-246.0 Bicarbonate [Moles/volume] in Serum or Plasma 2022-06-29 14:39:43 30 mEq/L F 20.0-31.0 Potassium [Moles/volume] in Serum or Plasma 2022-06-29 14:39:43 4.9 mEq/L F 3.5-5.5 Albumin [Mass/volume] in Serum or Plasma by Bromocresol green (BCG) dye binding method 2022-06-29 14:39:43 4.1 g/dL F 3.4-4.8 Protein [Mass/volume] in Serum or Plasma 2022-06-29 14:39:43 6.2 g/dL F 5.7-8.2 Glucose [Mass/volume] in Serum or Plasma 2022-06-29 14:39:43 207 mg/dL F 70.0-99.0 Albumin [Mass/volume] in Serum or Plasma by Bromocresol green (BCG) dye binding method 2022-06-29 14:39:43 4.1 g/dL F 3.4-4.8 Bicarbonate [Moles/volume] in Serum or Plasma 2022-06-29 14:39:43 30 mEq/L F 20.0-31.0 Glucose [Mass/volume] in Serum or Plasma 2022-06-29 14:39:43 207 mg/dL F 70.0-99.0 Lactate dehydrogenase [Enzymatic activity/volume] in Serum or Plasma 2022-06-29 14:39:43 177 U/L F 120.0-246.0 Potassium [Moles/volume] in Serum or Plasma 2022-06-29 14:39:43 4.9 mEq/L F 3.5-5.5 Protein [Mass/volume] in Serum or Plasma 2022-06-29 14:39:43 6.2 g/dL F 5.7-8.2 Potassium [Moles/volume] in Serum or Plasma 2022-06-20 20:42:42 5.3 mEq/L F 3.5-5.5 Potassium [Moles/volume] in Serum or Plasma Cholesterol [Mass/volume] in Serum or Plasma Bicarbonate [Moles/volume] in Serum or Plasma Protein [Mass/volume] in Serum or Plasma GLOBULIN CHOL/HDL RATIO Glucose [Mass/volume] in Serum or Plasma A/G RATIO LDL-CHOLESTEROL Albumin [Mass/volume] in Serum or Plasma by Bromocresol green (BCG) dye binding method Lactate dehydrogenase [Enzymatic activity/volume] in Serum or Plasma Cholesterol in HDL [Mass/volume] in Serum or Plasma Protein [Mass/volume] in Serum or Plasma VLDL-CHOL(CALC) Albumin [Mass/volume] in Serum or Plasma by Bromocresol green (BCG) dye binding method Cholesterol [Mass/volume] in Serum or Plasma Bicarbonate [Moles/volume] in Serum or Plasma Glucose [Mass/volume] in Serum or Plasma Lactate dehydrogenase [Enzymatic activity/volume] in Serum or Plasma Protein [Mass/volume] in Serum or Plasma A/G RATIO Protein [Mass/volume] in Serum or Plasma GLOBULIN Cholesterol in HDL [Mass/volume] in Serum or Plasma CHOL/HDL RATIO LDL-CHOLESTEROL VLDL-CHOL(CALC) Albumin [Mass/volume] in Serum or Plasma by Bromocresol green (BCG) dye binding method Cholesterol [Mass/volume] in Serum or Plasma Bicarbonate [Moles/volume] in Serum or Plasma Glucose [Mass/volume] in Serum or Plasma Lactate dehydrogenase [Enzymatic activity/volume] in Serum or Plasma Protein [Mass/volume] in Serum or Plasma Protein [Mass/volume] in Serum or Plasma A/G RATIO GLOBULIN Cholesterol in HDL [Mass/volume] in Serum or Plasma LDL-CHOLESTEROL CHOL/HDL RATIO VLDL-CHOL(CALC) Encounters No encounter information to report Immunizations Ordered Immunization Name Filled Immunization Name Date Status Comments Refusal Reason TST-PPD intradermal 2024-11-10 15:20:28 Covid-19 Vaccination 2024-03-27 05:00:00 Influenza Vaccination 2024-03-14 05:00:00 Influenza Vaccination 2024-03-06 05:00:00 TST-PPD intradermal 2023-10-15 15:35:00 Covid-19 Vaccination 2023-05-16 06:00:00 Influenza Vaccination 2023-05-02 05:00:00 TST-PPD intradermal 2022-10-13 16:16:12 Covid-19 Vaccination 2021-11-04 05:00:00 Covid-19 Vaccination 2021-05-27 06:00:00 Covid-19 Vaccination 2020-10-15 05:00:00 Covid-19 Vaccination 2020-09-17 06:00:00 Plan of Treatment Planned Activity Provider Planned Date Details Commen ts Diagnostic Test Pending Jacob Thompsoncell 2025-02-06 05:00:00 Ferritin [Mass/volume] in Serum or Plasma [code = 2276-4] Diagnostic Test Pending [facility] 2024-12-07 05:00:00 Parathyrin.intact [Mass/volume] in Serum or Plasma [code = 2731-8] [facility] 05:00:00 Alanine aminotransferase [Enzymatic activity/volume] in Serum or Plasma [code = 1742-6] [facility] [place] 2024-11-24 12:33:31 Potassium [Moles/volume] in Serum or Plasma [code = 2823-3] [facility] 2024-12-01 05:00:00 Calcium [Mass/volume] in Serum or Plasma [code = 46373-5] Diagnostic Test Pending [facility] 2024-11-24 12:34:09 Sodium [Moles/volume] in Serum or Plasma [code = 2951-2] [facility] [place] 2024-11-25 06:13:48 Hemoglobin [Mass/volume] in Blood [code = 718-7] [facility] 2024-11-24 12:35:02 Glucose [Mass/volume] in Serum or Plasma [code = 2345-7] Diagnostic Test Pending [facility] 2024-11-24 12:28:57 Creatinine [Mass/volume] in Serum or Plasma [code = 2160-0] Diagnostic Test Pending [facility] 2024-11-24 12:28:27 Aluminum [Mass/volume] in Serum or Plasma [code = 5574-9] [facility] [place] 2024-12-31 06:32:06 Ferritin [Mass/volume] in Serum or Plasma [code = 2276-4] Diagnostic Test Pending [facility] 2025-02-02 05:00:00 Calcium [Mass/volume] in Serum or Plasma [code = 63635-1] Diagnostic Test Pending [facility] 2025-02-06 06:31:43 Ferritin [Mass/volume] in Serum or Plasma [code = 2276-4] Diagnostic Test Pending [facility] 2025-03-04 06:34:46 Reticulocytes/100 erythrocytes in Blood by Automated count [code = 57772-2] Diagnostic Test Pending [facility] 2025-03-04 06:34:[address] [code = 2265] Future Scheduled Test [facility] 2025-03-30 05:00:00 Calcium [Mass/volume] in Serum or Plasma [code = 28227-4] Diagnostic Test Pending [facility] 2024-10-17 05:00:00 Cobalamin (Vitamin B12) [Mass/volume] in Serum or Plasma [code = 2132-9] Diagnostic Test Pending [facility] 2024-10-17 05:00:00 25-Hydroxyvitamin D3+25-Hydroxyvitamin D2 [Mass/volume] in Serum or Plasma [code = 50650-6] Diagnostic Test Pending [facility] 2024-10-07 16:11:43 Glucose [Mass/volume] in Serum or Plasma [code = 2345-7] Diagnostic Test Pending [facility] 2024-08-09 06:00:00 Ferritin [Mass/volume] in Serum or Plasma [code = 2276-4] Diagnostic Test Pending [facility] 2024-06-06 13:32:12 Alanine aminotransferase [Enzymatic activity/volume] in Serum or Plasma [code = 1742-6] Diagnostic Test Pending [facility] 2024-06-06 13:31:59 Potassium [Moles/volume] in Serum or Plasma [code = 2823-3] Diagnostic Test Pending [facility] 2024-11-05 14:57:23 Hemoglobin [Mass/volume] in Blood [code = 718-7] Diagnostic Test Pending [facility] 2024-06-08 06:00:00 Parathyrin.intact [Mass/volume] in Serum or Plasma [code = 2731-8] Diagnostic Test Pending [facility] [place] 2024-06-06 13:32:20 Sodium [Moles/volume] in Serum or Plasma [code = 2951-2] Diagnostic Test Pending [facility] 2024-06-07 07:24:05 Hemoglobin [Mass/volume] in Blood [code = 718-7] Diagnostic Test Pending [facility] 2024-06-06 13:30:38 Creatinine [Mass/volume] in Serum or Plasma [code = 2160-0] [facility] [place] 2024-10-07 16:12:06 Hemoglobin A1c/Hemoglobin.total in Blood [code = 4548-4] Diagnostic Test Pending [facility] 2024-06-06 13:30:24 Aluminum [Mass/volume] in Serum or Plasma [code = 5574-9] [facility] 2025-02-16 17:25:51 In-Center Hemodialysis Treatment [code = BPI715] [facility] 2024-12-15 18:10:39 In-Center Hemodialysis Treatment [code = DCF343] Diagnostic Test Pending [facility] 2024-11-26 17:39:00 In-Center Hemodialysis Treatment [code = FYZ764] [facility] 2024-11-05 15:20:21 In-Center Hemodialysis Treatment [code = OSY116] [facility] December 25, 2024 Diet Calorie 35 kcal/kg Fluid Value 1000 mL/d Phosphorus Value 800 mg/d Potassium Value 3000 mg/d Protein Value 1.3 gm/kg Sodium Value 2000 mg/d Calculated Weight 51 kg [facility] Observation Value Diet Calorie 35 kcal/kg Fluid Value 1000 mL/d Phosphorus Value 720 mg/d Potassium Value 3000 mg/d Protein Value 1.2 gm/kg Sodium Value 2000 mg/d Calculated Weight 50 kg dietary_diet_modification Carb Controlle d;
--- OUTSIDE RECORDS SUMMARY | 2025-03-28 10:29 | XMS_ITS | Encounter Summary ---
Author Organization [facility] Healthcare Address [address] [place] [address] Care Team Providers Care In Flight Crew Member Name Role Phone David Coppola MD Primary Care Provider + [phone] Jacob Suarez MD Unavailable [phone] Marnie Lara RN Unavailable [phone] Ros Seay MD Unavailable [phone] Johana Edmond RN Unavailable Abdifatah Villa MD Unavailable Issa Clements MD Unavailable [phone] Encounter Details Date Type Department Care Team (Late st Contact Info) Description 12/11/2018 Orders Only [facility] Health Information Management [address] [place] [address] Scanning, Provider Social History Tobacco Use Types Packs/Day Years Used Date Smoking Tobacco: Never Smokeless Tobacco: Never Alcohol Use Standard Drinks/Week Comments No 0 (1 standard drink = 0.6 oz pur e alcohol) Comments No Sex and Gender Information Value Date Recorded Sex Assigned at Not on file 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 Gender Identity Not on file Sexual Orientation [...] Influenza, adult 09/04/2019 09/04/2019 09/11/2019 3:05 AM VIDEO EDITOR Abscess/Wound/Cellulitis 10/16/2019 10/16/2019 3:05 AM CDT documented as of this encounter Care Teams In Flight Crew Member Relationship Specialty Start Date End Date David Coppola MD PCP - General Family Medicine 10/29/17 Jacob Suarez MD Referring Physician Nephrology 12/20/18 Marnie Lara RN Registered Nurse Air Brake Worker 12/20/1809/03 Ros Seay MD [facility] 03/05/19 Johana Edmond, RN [address] [facility] [address] [place] [address] Air Brake Worker 08/21/19 Abdifatah Villa MD [address] [place] [address] Consulting Physician Cardiology 09/01/20 Issa Clements MD [address] [facility] [address] [place] [address] Referring Physician General Surgery 09/01/20 documented as of this encounter
--- OUTSIDE RECORDS SUMMARY | 2025-03-28 10:29 | XMS_ITS | Encounter Summary ---
Author Organization [facility] Healthcare Address [address] [place] [address] Care Team Providers Care Shoe Lacer Name Role Phone David Coppola MD Primary Care Provider + [phone] Jacob Suarez MD Unavailable [phone] Marnie Lara RN Unavailable [phone] Ros Seay MD Unavailable [phone] Johana Edmond RN Unavailable Abdifatah Villa MD Unavailable Issa Clements MD Unavailable [phone] Encounter Details Date Type Department Care Team (Late st Contact Info) Description 03/15/2018 Orders Only 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 Gender Identity Not on file Sexual Orientation Not on file documented as of this encounter Plan of Treatment Scheduled Procedures Name Priority Associated Diagnoses Date/Ti me TRANSPLANT KIDNEY ESRD (end stage renal disease) (HCC) documented as of this encounter Procedures Procedure Name Priority Date/Time Associated Diagnosis Comments SCAN - RADIOLOGY/IMAGING 03/15/2018 documented in this encounter Results * SCAN - RADIOLOGY/IMAGING (03/15/2018) Anatomical Region Laterality Modality Other us Provider Scanning Final Result documented in this encounter Visit Diagnoses Not on filedocumented in this encounter Additional Health Concerns Infection Onset Date Last Indicated Resolved Time Influenza, adult 09/04/2019 09/04/2019 09/11/2019 3:05 AM FOOD PRODUCTION WORKER Abscess/Wound/Cellulitis 10/16/2019 10/16/2019 3:05 AM CDT documented as of this encounter Care Teams Shoe Lacer Relationship Specialty Start Date End Date David Coppola MD PCP - General Family Medicine 10/29/17 Jacob Suarez MD Referring Physician Nephrology 12/20/18 Marnie Lara RN Registered Nurse Spinning Operator 12/20/1809/03 Ros Seay MD Lockstitch Sleeve Maker Cardiology 03/05/19 Johana Edmond, RN [address] [facility] [address] [place] [address] Spinning Operator 08/21/19 Abdifatah Villa MD [address] [facility] [address] [place] [address] Consulting Physician Cardiology 09/01/20 Issa Clements MD [address] [facility] [address] [place] [address] Referring Physician General Surgery 09/01/20 documented as of this encounter
--- OUTSIDE RECORDS SUMMARY | 2025-03-28 10:29 | XMS_ITS | Clinical Summary ---
Author Organization [facility] Address [address] [place] [address] Care Team Providers Care Steward/Stewardess Name Role Phone David Coppola MD Primary Care Provider [phone] David Coppola MD Unavailable [phone] David Coppola MD Unavailable [phone] Virginie Corea RN Unavailable [phone] Source Comments [facility],non-owned Affiliates and Associated Physician Practices is amultiple site organization consisting of ambulatory clinics and hospital sitesin [place], [place] and [place]. This disclosure is being madepursuant to the Care Everywhere program and may not contain all information available regarding this patient. Last updated 18.[facility] Allergies Active Allergy Reactions Criticality Noted [...] vitamin D, ergocalciferol , (DRISDOL) 1.25 MG (83916 UT) capsule Take 1 (one) capsule by [...] included. Listing date: Not yet listed Referring Gambling Broker: Dr. Suarez Dialysis Type and Start Date: [...] lives with her Estela. She speaks fluent Japanese. She has 3 children who live in [place] and [facility]. Her support system is her [...] (Bezet) ms 462 ms Final Calculated R [place] degrees 82 degrees Final Calculated T axis degrees 53 degrees Final EKG Interp Final ATRIAL FIBRILLATION NONSPECIFIC ST ABNORMALITY , PROBABLY DIGITALIS EFFECT ABNORMAL ECG NO PREVIOUS ECGS AVAILABLE Confirmed by Fritz GANT, MIKE ([id number]), newspaper editor Joseph Ingram ([id number]) on 04/04/2018 1:32:49 PM Echo: 03/28/18 CONCLUSION: There is moderate concentric left ventricular hypertrophy. The left ventricular ejection fraction is estimated at 65 %. There are no regional wall motion abnormalities present. Estimated right ventricular systolic pressure is 39 mmHg. Severe biatrial enlargement Mild dilated proximal ascending aorta. DSE: n/a will need [facility] Cardiac Cath: Will need d/t [...] Completed at OSH on 03/20/18 Cardiac Catheterization03/20/2018 [facility] Result Narrative PERIPHERAL ANGIOGRAM AND [...] groin hematoma, retroperitoneal bleed, vessel perforation; periprocedural LA, stroke, contrast induced nephropathy, and even . [...] artery access site 8. Moderate Sedation (CPT 75880) MODERATE SEDATION: Midazolam 2 mg , Fentanyl 50 mcg, start time 1157 stop time 1318, total direct [id number] monitoring of conscious sedation 81 minutes (CPT 65564) TRAINED OBSERVER: Mena Scruggs RN was trained office over for moderate sedation. ACCESS SITE: Right common femoral artery PROCEDURE: After obtaining informed consent, patient was brought to the labeling strategist and prepped and draped in the usual sterile manner. After local anesthesia with lidocaine, right common femoral artery access was taken with micropuncture needle followed by insertion of a 5 Faroese sheath over a 0.035 inch wire. Selective right common femoral angiogram with distal runoff was performed through the 5 Faroese sheath. After this, a 5 Faroese IM catheter was advanced in the distal abdominal aorta, distal abdominal aortogram with bilateral iliac runoff was performed. The same catheter was pointed towards the left common iliac artery, selective left common iliac angiogram with distal runoff was performed. During intervention, selective left common femoral angiogram and superficial femoral angiogram was performed using the long 6 Faroese sheath. The angiographic findings and details of [...] intervention on the same vessel. The 5 Faroese sheath was exchanged with a long 90 cm sheath over 035 glide wire. The tip of the long sheath was position in the proximal popliteal artery. Patient received heparin for procedural anticoagulation, ACT was monitored throughout the procedure. Patient also received aspirin loading dose of clopidogrel 600 mg in the labeling strategist. The totally occluded, calcified left anterior tibial [...] received dental clearance PPD: Colonoscopy: Completed at [facility] 12/02/2015 Mammo: Pap: Dental: SW: 03/28/18 Clinical Social Work Impression: It is the impression of this social services aide that Shasta Obando has several positive factors for Kidney transplant candidacy from a psychosocial perspective. Pt has a good understanding of her disease and motivation for kidney transplant. Pt appears to have adequate insurance and financial situation (children provide assistance as needed) for post transplant needs. Pt has identified adequate support system and appropriate discharge plan. No concerns regarding substance abuse identified. Plan: home health care social worker to provide supportive services as needed. No f/u indicated at this time.Patient appears to be a reasonable candidate for transplant from a psychosocial perspective. Post transplant arrangement forms are needed prior to being listed. Psychiatric Consult Recommended: No Transplant Water Resources Technical Officer: Nicole Tomas LMSW RD: 03/28/18 BMI= 28.51, overweight - Pt is considered to be a good candidate for a Kidney Transplant from a Nutrition standpoint. Recommendations/Interventions: Pt instructed to continue to work with Renal RD at HD on diet and to be compliant. Lindsay Gardner Encounter for other preprocedural examination Overview (10/08/2017): Listing date: Not yet listed Referring Gambling Broker: Dr. Suarez Dialysis Type and Start Date: [...] lives with her Estela. She speaks fluent Japanese. She has 3 chilren who live in [place] and [facility]. Her support system is her [...] Transplant surgery appt: Consults: cardiology consult with [facility] Notes: Not yet presented Evaluation Testing Date and Results: Labs: PTH: A1c: Glucose: PSA: GFR: Serologies: CMV Igg: EBV Igg: Albumin: Tox Screen: PRA: Echo: DSE: Cardiac Cath: CXR: Pano: US: PPD: Negative at on 05/08/2016 Colonoscopy: Completed at [facility] 12/02/2015 Mammo: Pap: Dental: SW: RD: Abnormal finding on imaging 06/15/2015 Overview (06/15/2015): Filling defect on venography of central veins. Need to rule out aortic arch aneurysm. Complication of arteriovenous dialysis fistula PVD (peripheral vascular disease) Encounters Date Type Department Care Team Description 02/03/2025 Orders Only [facility] - GI [address] [place] [address] Avis Dumont, HUMAN RESOURCES OFFICE ASSISTANT-CORK SORTER Hepatitis B core antibody positive from Last 3 Months Immunizations Immunization Administration Dates Next Due Covid Moderna primary monova lent 12+ yr 0.5mL 11/04/2021,10/15/2020,09/17/2020 Family History Medical History Relation Name Comments LA Brother 3 Heart Disease Father Hypertension Father LA Father Hypertension Mother Relation Name Status Comments [...] on file Legal Sex Female 5:40 PM POWDER ROOM ATTENDANT Gender Identity Not on file Sexual Orientation [...] st Contact Info) Description 06/16/2025 1:00 PM POWDER ROOM ATTENDANT Procedure visit [facility] - [address] [phone] 06/16/2025 1:30 PM POWDER ROOM ATTENDANT Office Visit [facility] - [address] [phone] Avis Dumont M, HUMAN RESOURCES OFFICE ASSISTANT-[address] [place] [phone] Health Maintenance Due Date Last Done Comments BONE DENSITY TESTING 1946 DTAP/TDAP/TD VACCINES (1 - Tdap) 1965 PNEUMOCOCCAL VACCINE 50+ (1 of 2 - PCV) 1965 HEPATITIS B VACCINE (1 of 3 - Risk Dialysis 4-dose series) 1966 ZOSTER VACCINE (1 of 2) 1996 Respiratory Syncytial Virus (RSV) Vaccine Pt: or over 60 yrs (1 - 1-dose 75+ series) 2021 DEPRESSION SCREENING 07/09/2024 MEDICARE AWV CALENDAR YEAR 2024 COVID-19 VACCINE ( - 2024- season) 2025 11/04/2021, 10/15/2020, 09/17/2020 INFLUENZA VACCINE (#1) 2025 8, 04/08/2017, 03/23/2015, Additional history exists HEPATITIS C SCREENING Completed 11/22/2024 , 08/29/2024, 03/28/2018, Additional history exists HIB VACCINE Aged Out No longer eligi [...] this topic Medical Devices Implanted Type Area Merchandise Worker Device Identifier Shelf Expiration Date Model / Serial / Lot Duraflow 2 Hemodialysis Catheter Implanted:Qty: 1 on 02/22/2015 by David Buitrago MD at [facility] Right: Chest 06/07/2017 [id number] / / [id number] [place] Acuseal Vascular Graft Implanted:Qty: 1 on 04/02/2018 by David Buitrago MD at [facility] Left: Arm 10/29/2020 [id number] / / [id number] Procedures Procedure Name Priority Date/Time Associated Diagnosis [...] glen Non-reac tive 03/28/2018 2:50 PM CDT [facility] Comment: Hepatitis C Antibody screen indicates [...] LAB - CHEMISTRY ORDERABLES Fi nal Result [id number] [place] [address], [facility] [phone] from Last 3 Months or Most Recently Relevant to Health Maintenance Insurance MEDICAID - [place] UHC MANAGED MEDICARE ADV MEDICAID - OUT OF STATE Advance Directives Documents on File Type Date Recorded Patient Singing Messenger Expl anation Adv Directive/Living Will/POA 09/18/2017 * Full Code (Latest Code Status on File) Date Activated Date Inactivated Comments 02/22/2015 4:27 PM 02/23/2015 5:53 PM Care Teams Steward/Stewardess Relationship Specialty Start Date End Date David Coppola MD [address] [place] [phone] PCP - General 08/15/16 David Coppola MD [address] [place] [phone] Family Medicine 02/08/15 David Coppola MD [facility] [place] [address] Family Medicine 08/15/16 Virginie Corea, ABENA Patient Monitor 02/23/15
--- OUTSIDE RECORDS SUMMARY | 2025-03-28 10:29 | XMS_ITS | Encounter Summary ---
Author Organization [facility] Address [address] [place] [address] Care Team Providers Care Lab Engineer Name Role Phone David Coppola MD Primary Care Provider [phone] Jacob Suarez MD Unavailable [phone] Ros Seay MD Unavailable [phone] Abdifatah Villa MD Unavailable Issa Clements MD Unavailable [phone] Encounter Details Date Type Department Care Team (Late st Contact Info) Description 03/18/2025 [address]phone [facility] Radiology [address] [place], [place] [id number] Yaritza Golden RN Social History Tobacco Use [...] often do you attend chur ch or bahai services? 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 Gender Identity Not on file Sexual Orientation Not on file documented as of this encounter Plan of Treatment Scheduled Procedures Name Priority Associated Diagnoses Date/Ti me TRANSPLANT KIDNEY ESRD (end stage renal disease) (HCC) documented as of this encounter Visit Diagnoses Not on filedocumented in this encounter Care Teams Lab Engineer Relationship Specialty Start Date End Date David Coppola MD PCP - General Family Medicine 10/29/17 Jacob Suarez MD Referring Physician Nephrology 12/20/18 Ros Seay MD [facility] 03/05/19 Abdifatah Villa MD [address] [place] [address] Consulting Physician Cardiology 09/01/20 Issa Clements MD [address] [facility] [address] [place] [address] Referring Physician General Surgery 09/01/20 documented as of this encounter
[2025-03-28] MEDS: ACETAMINOPHEN 325 MG TABLET 650 MG PO ×2 (10:42→16:55)
[2025-03-28 10:44] LABS: Immature Granulocyte Percent A 0.6 % (0-0.5); Lymphocytes Absolute Auto 0.62 K/mm3 (0.9-3.2); Mean Corpuscular HGB Conc 29.9 g/dl (32-36); Mean Corpuscular Hemoglobin 31.1 pg (26-34); Mean Corpuscular Volume 103.7 fl (80-100); Nucleated Red Blood Cells Absolute Auto 0.000 K/mm3 (0.0-0.012); Nucleated Red Blood Cells Perc 0.0 % (0.0-0.2); Platelet Count Result 166 k/mm3 (150-375); Red Blood Count 1.90 M/mm3 (4.2-5.4); White Blood Count 7.1 K/mm3 (4.5-10.0)
[2025-03-28 10:54] LABS: Hemoglobin 5.9 g/dL (12.0-15.0)
[2025-03-28 10:55] LABS: Hematocrit 19.7 % (37.0-47.0)
[2025-03-28 10:58] LABS: Alanine Aminotransferase 23 U/L (6-35); Albumin Level 3.5 g/dL (3.5-5.1); Alkaline Phosphatase 178 U/L (38-126); Anion Gap 7 mmol/L (4-12); Aspartate Amino Transferase 32 U/L (14-36); Bilirubin,Total 0.5 mg/dL (0.2-1.3); Blood Urea Nitrogen 45 mg/dL (7-17); Calcium 9.6 mg/dL (8.4-10.2); Carbon Dioxide 32 mmol/L (22-30); Chloride 93 mmol/L (98-107); Estimated Glomerular Filt Rate 14; Glucose 169 mg/dL (65-110); Potassium 3.8 mmol/L (3.4-5.0); Sodium 132 mmol/L (137-145); Total Protein 5.9 g/dL (6.3-8.2)
[2025-03-28 11:11] LABS: Hypochromasia 1+; Polychromasia Occasional
[2025-03-28 11:12] LABS: Basophilic Stippling Occasional; Macrocytosis 1+ (NORMAL); Schistocytes None Seen
--- NOTE | 2025-03-28 14:15 | P.HP_ITS ---
H&P: HPI History of Present Illness Date/Time: 03/28/25 14:15 Chief Complaint: Shortness of breath Narrative: 79 year female diabetes, osteoporosis, hyperlipidemia, end-stage renal disease on HD and insomnia presents the hospital with shortness of breath. Patient states that she had a right lower extremity vascular surgery about 10 days ago over at [facility] and has been having shortness of breath since then. She also complains of blood in the stool right lower a abdominal pain. She is taking Plavix and aspirin. She had her regular dialysis session yesterday. Lab work in the ED shows hemoglobin of 5.9, sodium of 132, chloride of 93, carbon dioxide of 32, BUN of 45, creatinine of 3.29, glucose of 169. Patient's CT abdomen pelvis show Colitis. Likely infectious or inflammatory but given severe atherosclerotic disease, ischemic remains possible. Chest x-ray shows basilar atelectasis and trace pleural effusions. 2 RBCs were ordered and GI consulted. Lactic acid pending. Patient denies history of COPD. Review of Systems Review of Systems: 12 systems were reviewed and are negativ e except for as per HPI. 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 Spinal stenosis at L4-L5 level High-grade central canal stenosis noted on MRI February 2017 Pulmonary hypertension Echocardiogram August 2019: EF 65-70 %, indeterminate left ventricular diastolic function, mild biatrial enlargement, mild mitral valve regurgitation, moderate tricuspid regurgitation, mild pulmonary hypertension with RVSP of 39 Hiatal hernia Thoracic ascending aortic aneurysm 4.[address] scan from August 2019 Anemia of chronic disease Megaloblastic anemia Paroxysmal atrial fibrillation Type 2 diabetes mellitus Hemoglobin A1c was 6.6 in July 2019. Hypertension Osteoporosis Hyperlipidemia AV fistula Left upper extremity End stage renal disease on dialysis Dialysis days are Sunday, Sunday, and Sunday. She is on the transplant list at [facility]. Osteoarthritis of both knees Staphylococcal septicemia (~2013) Closed fracture of lateral portion of right tibial plateau (~2014) Surgical History Surgical History Amputated toe of left foot History of bilateral cataract extraction Amputation at midfoot 5th digit right footAnd the great toe on the left History of arthroplasty of right ankle Presence of Watchman left atrial appendage closure device History of arthroscopy (~12/07/12) wrist History of colonoscopy (~12/02/15) History of knee replacement (~2015) right Family History Family History Father Hypertension Heart disease Mother Diabetes mellitus Hypertension Tobacco dependence Lung cancer Sibling Heart disease Social History Social History Social History: The patient is and lives in [place]. She is originally from [place]. 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 She has 2 daughters who live in [place]. She has 1 son who lives in [facility] . She designates her daughters as her surrogate decision makers. She is a lifelong nonsmoker. No alcohol or drug abuse. Primary care physician: Dr. David Coppola Code status: Full code Smoking status: Never smoker Second hand tobacco smoke exposure: No Alcohol intake: never Substance use: never Substance use type: does not use Do You Feel Safe in your Home?: Yes Lack of Transportation: No Lack of Food: Never True Current Housing: I Have Housing Concerned About Future Housing: No Difficulty Paying Gas/Electric Bills: No Difficulty Paying for Meds: No Currently Unemployed: No Education: Don't Know Difficulty w/ Childcare or Family Care: No Gender identity (if verbalized by the patient): Female Spiritual care concerns: No Agree to blood products: Yes Meds Home Medications and Allergies Home Medications ?Medication ?Instructions ?Recorded ?Confirmed ?Type acetaminophen 500 mg tablet See Rx Instructions PO Q4H PRN Pain 02/20/20 03/28/25 History (Acetaminophen Extra Strength) blood sugar diagnostic #500 ea 07/18/21 02/13/25 Rx atorvastatin 40 mg tablet 40 mg PO QPM 10/25/21 History vitamin B complex and vitamin C 1 cap PO DAILY 2 03/28/25 History no.20-folic acid 1 mg capsule (Renal Caps) hortencia strickland #1 ea 01/11/23 02/13/25 Rx liraglutide 0.6 mg/0.1 mL (18 mg/3 1.2 mg subcut HS 03/28/25 History mL) subcutaneous pen injector (Talyst 2-Agustín) Assited gait device #1 ea 08/23/23 02/13/25 Rx clotrimazole 1 % topical cream 1 applic topical Q12H 0 09/27/23 03/28/25 History (Antifungal (clotrimazole)) dicyclomine 10 mg capsule See Rx Instructions .Route 0 02/12/24 03/28/25 Rx .COMPLEX #60 caps biotin 5 mg capsule 5 mg PO QPM 10/08/24 5 History blood sugar diagnostic #500 ea 10/14/24 02/13/25 Rx tenofovir alafenamide 25 mg tablet 25 mg PO DAILY #90 tabs 10/16/24 03/28/25 Rx trazodone 50 mg tablet 100 mg (2 x 50 mg) PO QHS #1 80 tabs 12/31/24 03/28/25 Rx rollator #1 ea 01/01/25 02/13/25 Rx denosumab 60 mg/mL subcutaneous 60 mg subcut [id number] #1 mL 01/05/25 03/28/25 Rx syringe (Prolia) pantoprazole 40 mg tablet,delayed 40 mg PO Q12HR #60 t abs 01/20/25 03/28/25 Rx release pen needle, diabetic 32 gauge x #100 ea 01/20/2502/13 Rx 5/32 insulin degludec 100 unit/mL (3 10 unit (0.1 mL) subcu t HS #15 mL 02/03/25 03/28/25 Rx mL) subcutaneous pen (Tresiba FlexTouch U-100 insulin) diclofenac sodium 1 % topical gel 2 g topical QID PRN discomfort 02/12/25 History (Arthritis Pain (diclofenac)) polyethylene glycol 3350 17 17 g PO DAILY PRN constipa tion 7 02/14/25 03/28/25 Rx gram/dose oral powder (Miralax) days #119 grams quetiapine 25 mg tablet (Seroquel) 25 mg PO HS 7 days #7 tabs 02/15/25 03/28/25 Rx tobramycin 0.3 % eye drops 1 drp EACH EYE Q4H #5 mL 03/28/25 Rx sitagliptin phosphate 100 mg 100 mg PO BID 03/28/25 History tablet (Januvia) Allergies Allergy/AdvReac Type Severity Reaction Status Date / Time cephalexin Allergy Mild Rash Verified 03/28/25 16:10 enalapril Allergy Unknown cough Verified 03/28/25 16:10 pioglitazone Allergy Unknown sneezing Verified 03/28/25 16:10 cefazolin AdvReac Mild nausea/dizz Verified 03/28/25 16:10 iness tramadol AdvReac Unknown hallucinati Verified 03/28/25 16:10 ons gabapentin AdvReac Hallucinati Verified 03/28/25 16:10 ng Vital Signs Vital Signs - 24 hr 03/28/25 10:12 03/28/25 10:20 03/28/25 10:29 Temperature 98.4 F Pulse Rate 44 L 74 Respiratory Rate 22 H 19 Blood Pressure 157/53 H 157/53 H Pulse Oximetry 99 100 100 Oxygen Delivery Room Air Room Air 03/28/25 13:48 03/28/25 14:04 Temperature 97.9 F 97.7 F Pulse Rate 55 L 71 Respiratory Rate 20 20 Blood Pressure 155/53 H 160/50 H Pulse Oximetry 95 97 Oxygen Delivery Exam Narrative: General: well appearing, appears stated age. HEENT: normocephalic, atraumatic. Mucous membranes moist. EOMI, PERRLA, bilateral sclera anicteric, no conjunctival injection. Neck supple without JVD, lymphadenopathy, or bruit. Respiratory: clear to ascultation bilaterally. No rales/rhonic/wheezes. Barrel- chested. Cardiovascular: Irregular rate and rhythm, normal S1-S2 upon ascultation. No murmurs, rubs, or clicks. PMI is nondisplaced, capillary refill less than 3 second. Abdomen: Soft, round, no pulsatile masses, nondistended and nontender. No rebound, no guarding. No CVA tenderness, no hepatosplenomegaly. Bowel sounds present to all four quadrants. No high pitch or tinkling sounds, resonant to percussion. Extremities: No cyanosis, clubbing, or edema present. Pulses are palpable 2/2. Active ROM to all four extremities. Neuro: Alert and orientated x 4. PERRLA. Cranial nerves 2-12 intact without focal deficit. Skin: Warm, dry, and intact, without rash, erythema, or lesion. Psych: pleasant, cooperative, normal speech, normal affect, no hallucinations, no dysarthia H&P: Results Labs Labs: Short CBC 03/28/25 Range/Units 10:38 WBC 7.1 (4.5-10.0) K/mm3 Hgb 5.9 L* (12.0-15.0) g/dL Hct 19.7 L* (37.0-47.0) % Plt Count 166 (150-375) k/mm3 BMP 03/28/25 10:38 Sodium 132 L Potassium 3.8 Chloride 93 L Carbon Dioxide 32 H BUN 45 H D Creatinine 3.29 H Glucose 169 H Calcium 9.6 Liver Function 03/28/25 Range/Units 10:38 Total Bilirubin 0.5 (0.2-1.3) mg/dL AST 32 (14-36) U/L ALT 23 (6-35) U/L Alkaline Phosphatase 178 H (38-126) U/L Albumin 3.5 (3.5-5.1) g/dL Assessment and Plan Assessment and plan (1) Acute lower gastrointestinal bleeding: Code(s): K92.2 - Gastrointestinal hemorrhage, unspecified Status: Acute Assessment and Plan: GI consulted NPO midnight Plan for scope in the morning No signs of active bleeding at this time (2) Acute on chronic blood loss anemia: Code(s): D62 - Acute posthemorrhagic anemia Status: Acute Assessment and Plan: Hemoglobin on admission 5.9 2 units RBCs ordered H&H q.6 Transfuse for hemoglobin less than 7 or symptomatic (3) Shortness of breath: Code(s): R06.02 - Shortness of breath Status: Acute Assessment and Plan: Minimal bibasilar atelectasis and/or trace pleural effusions. Likely due to fluid overload and anemia Managed through dialysis Pulmonary consult for possible underlying COPD Wean oxygen as able (4) Seizure: Code(s): R56.9 - Unspecified convulsions Status: Acute Assessment and Plan: Nurse states that patient was talking to her and aunts all of since stopped the blanks stair with minor tremors lasting less than 30 seconds Keppra load Head CT pending EEG pending Neurology consult pending (5) Hypertension: Qualifiers: Hypertension type: unspecified Qualified Code(s): I10 - Essential (primary) hypertension Code(s): I10 - Essential (primary) hypertension Status: Chronic Assessment and Plan: Patient does not appear to be on medications likely managed through dialysis (6) Hyperlipidemia: Code(s): E78.5 - Hyperlipidemia, unspecified Status: Chronic Assessment and Plan: Continue statin (7) Type 2 diabetes mellitus: Qualifiers: Diabetes mellitus complication status: without complication Diabetes mellitus meterman insulin use: without meterman use Qualified Code(s): E11.9 - Type 2 diabetes mellitus without complications Code(s): E11.9 - Type 2 diabetes mellitus without complications Status: Chronic Assessment and Plan: Holding patient's home a insulin as we do not carry it Accu-Cheks a.cCleopatra HS Diabetic diet SSI Lantus Hypoglycemia protocol (8) End stage renal disease on dialysis: Code(s): N18.6 - End stage renal disease; Z99.2 - Dependence on renal dialysis Status: Chronic Assessment and Plan: Nephrology consulted Hemodialysis Sunday (9) Atrial fibrillation: Qualifiers: Atrial fibrillation type: unspecified Qualified Code(s): I48.91 - Unspecified atrial fibrillation Code(s): I48.91 - Unspecified atrial fibrillation Status: Chronic Assessment and Plan: Rate controlled does not appear to be on medications Quality VTE Prophylaxis VTE prophylaxis: mechanical ordered If No VTE Prophylaxis Answer both mechanical and pharmacologic: Reason no pharmacologic proph: medical contraindication Hospitalist MIPS Advance Care Plan I have confirmed that the patient's Advanced Care Plan is present, code status is documented, or surrogate decision maker is listed in patient medical record.: Yes Medication Reconciliation I have utilized all available resources to obtain, update and review the patients current medications (includes all prescriptions, OTC, herbals, cannabis, and nutritional supplements).: Yes
[2025-03-28] MEDS: SODIUM CHLORIDE 0.9% IV 250 ML 30 ML IV CONT (15:00)
[2025-03-28] MEDS: TUBING, BLOOD PLUM PUMP TUBING 1 EACH XX (15:00)
--- NOTE | 2025-03-28 15:39 | ADMGEN ---
This patient, Shasta Hendricks, was admitted to [address] [facility] Room 313-01. Patient/family oriented to hospital policies and general routines including ID bracelet, bed and alarms, visiting hours, pain management, procedures, bathroom and other care routines, personal items, smoking policy, room service/diet, and visiting hours. Information on how to activate the Rapid Response Team has been discussed. Patient/Family are encouraged to report perceived risks to care and to ask questions if they do not understand what they are told or what they should do. Got report from [place] in ER.
[2025-03-28 15:45] LABS: INR 1.1; Prothrombin Time 14.5 Seconds (11.1-14.7)
[2025-03-28 15:46] LABS: Partial Thromboplastin Time 29.8 Seconds (22.3-36.8)
[2025-03-28] MEDS: PANTOPRAZOLE SODIUM IV 40 MG VIAL IV PUSH (16:32)
[2025-03-28] MEDS: levETIRAcetam 1000MG/NACL100ML 1,000 MG/100 ML BAG 400 MG IVPB (16:32)
[2025-03-28 16:52] LABS: NT Pro B Type Natriuretic Pept > 30000 pg/mL (19.9-100)
[2025-03-28] MEDS: ATORVASTATIN 40 MG TABLET PO (16:56)
[2025-03-28] MEDS: TOBRAMYCIN SULFATE 0.3% OPHTH SOLN 5 ML 1 DROP EACH EYE (17:02)
[2025-03-28 20:49] LABS: CRP 1.5 mg/dL (<1.0)
[2025-03-28 21:15] LABS: Procalcitonin 0.5 ng/mL
[2025-03-28] MEDS: INSULIN GLARGINE (*BKC) 100 UNITS/ML 8 UNITS SUB-Q (21:34)
[2025-03-28] MEDS: PANTOPRAZOLE 40 MG TABLET PO (21:36)
[2025-03-28] MEDS: NALOXONE HCL 0.4 MG/ML VIAL IV PUSH (22:25)
--- NOTE | 2025-03-28 22:39 | ECG_ITS ---
Test Date: 2025-03-28 22:59:46 Measurements Intervals [place] Rate: 67 P: 0 MI: 0 QRS: 106 QRSD: 105 T: 41 QT: 513 QTc: 544 Interpretive Statements ATRIAL FIBRILLATION RIGHTWARD AXIS NONSPECIFIC T-WAVE ABNORMALITY ABNORMAL ECG Compared to ECG 03/28/2025 10:27:58 NO DIFFERENCE Electronically Signed On 03-29-2025 08:24:09 CDT by David Rodriguez M.D.
[2025-03-28 22:46] LABS: Alveolar/Arterial O2 Gradient < 0.0 mmHg; Fractional Inspired Oxygen 28 %; HCO3 ABG 30.7 mEq/l (22.0-26.0); Oxygen Content ABG 12.8 %vol (16.0-22.0); Oxygen Saturation ABG 98.4 % (95.0-100.0); PO2 ABG 134.7 mmHg (80.0-100.0); PO2 FiO2 Ratio Arterial Blood 4.81 %
[2025-03-28 22:51] LABS: PCO2 ABG 60.6 mmHg (35.0-45.0)
[2025-03-28 22:52] LABS: Liters per Minute 2.0 LPM; Site Drawn RIGHT BRACHIAL
[2025-03-28 23:08] LABS: Hematocrit 29.2 % (37.0-47.0); Hemoglobin 8.9 g/dL (12.0-15.0)
[2025-03-28 23:35] LABS: Alanine Aminotransferase 21 U/L (6-35); Albumin Level 3.6 g/dL (3.5-5.1); Alkaline Phosphatase 147 U/L (38-126); Anion Gap 8 mmol/L (4-12); Aspartate Amino Transferase 30 U/L (14-36); Bilirubin,Total 0.9 mg/dL (0.2-1.3); Blood Urea Nitrogen 50 mg/dL (7-17); Calcium 9.3 mg/dL (8.4-10.2); Carbon Dioxide 29 mmol/L (22-30); Chloride 95 mmol/L (98-107); Estimated Glomerular Filt Rate 11; Glucose 145 mg/dL (65-110); Potassium 3.9 mmol/L (3.4-5.0); Sodium 132 mmol/L (137-145); Total Protein 5.8 g/dL (6.3-8.2); Troponin I 0.050 ng/mL (0.000-0.034)
--- NOTE | 2025-03-28 23:41 | PM.CCN ---
Critical Care Event Note Summary Code activated: No Narrative: Called to bedside for patient being lethargic and hypotensive his 80s/40s On bedside exam patient's pulse is weak and thready, she is apneic with pinpoint pupils, patient arouses to aggressive stimulation Narcan given with minimal improvement in neuro status Patient had just finished 2 units of blood. Nurse states about 5 minutes ago she was talking awake and alert and went unresponsive. This is patient's 2nd episode of being unresponsive for nursing. ABG, EKG, troponin, chest x-ray, fluid bolus ordered. Patient's blood pressure improved within about 5 minutes to 140s/ 40 and patient became much more alert. Patient's ABG shows hypercarbia with a PO2 of 60 likely due to apneic pauses and underlying COPD Chest x-ray appears to now have pulmonary edema will give low-dose Lasix if blood pressure allows Telemetry reviewed and appears that patient is having cardiac pauses in heart rate as low as 40s which may be the underlying cause to her unresponsiveness. Head CT with no acute findings, patient is on likely having seizures are more likely having symptomatic bradycardia Due to patient being awake alert allen externally paced patient at this time, will place pacer pads on patient and atropine ordered if needed Patient is being transferred to the ICU, has been accepted by the digital tech This case had a high probability of a clinically significant, sudden, or life threatening deterioration of this patient's condition which required my full and direct attention, intervention and personal management. Critical care time: 105 - 134 mins
[2025-03-29] VITALS (51 sets, daily range): BP systolic 84–146; BP diastolic 34–74; PULSE 30–89; RESP 14–26; TEMP 36.2–37; O2SAT 10–100
--- NOTE | 2025-03-29 00:12 | PC.NURSE ---
2130: Pt intermittently lethargic, per day shift nurse, she had episode of non responsiveness. Hypotensive; on Tele Afib with episodes of bradycardia. Repeat BP improved with MAP over 60. Hospitalist assessed pt and new orders placed. 0000: pt transferred to ICU in a stable condition, with belongings.
[2025-03-29] MEDS: TOBRAMYCIN SULFATE 0.3% OPHTH SOLN 5 ML 1 DROP EACH EYE ×7 (01:05→20:46)
[2025-03-29] MEDS: DOPamine 400 MG/D5W 250 ML 400 MG/250 ML BAG 10.16 MG IV CONT (01:06)
--- NOTE | 2025-03-29 01:41 | PC.NURSE ---
This patient, Shasta Hendricks, was received from [facility] on 03/29/25 at 2355. Patient/family oriented to unit policies and routines.
[2025-03-29 02:30] LABS: Hematocrit 28.9 % (37.0-47.0); Hemoglobin 8.6 g/dL (12.0-15.0)
[2025-03-29 02:32] LABS: Alveolar/Arterial O2 Gradient 52.4 mmHg; Fractional Inspired Oxygen 30 %; HCO3 ABG 28.5 mEq/l (22.0-26.0); Oxygen Content ABG 12.8 %vol (16.0-22.0); Oxygen Saturation ABG 96.1 % (95.0-100.0); PCO2 ABG 59.0 mmHg (35.0-45.0); PO2 ABG 92.2 mmHg (80.0-100.0); PO2 FiO2 Ratio Arterial Blood 3.07 %
[2025-03-29 02:34] LABS: Site Drawn RIGHT BRACHIAL
[2025-03-29 03:22] LABS: Troponin I 0.053 ng/mL (0.000-0.034)
[2025-03-29 06:25] LABS: Hematocrit 28.1 % (37.0-47.0); Hemoglobin 8.6 g/dL (12.0-15.0); Immature Granulocyte Percent A 0.5 % (0-0.5); Lymphocytes Absolute Auto 1.67 K/mm3 (0.9-3.2); Mean Corpuscular HGB Conc 30.6 g/dl (32-36); Mean Corpuscular Hemoglobin 29.3 pg (26-34); Mean Corpuscular Volume 95.6 fl (80-100); Nucleated Red Blood Cells Absolute Auto 0.000 K/mm3 (0.0-0.012); Nucleated Red Blood Cells Perc 0.0 % (0.0-0.2); Platelet Count Result 192 k/mm3 (150-375); Red Blood Count 2.94 M/mm3 (4.2-5.4); White Blood Count 11.1 K/mm3 (4.5-10.0)
[2025-03-29 06:46] LABS: Anion Gap 12 mmol/L (4-12); Blood Urea Nitrogen 54 mg/dL (7-17); Calcium 8.8 mg/dL (8.4-10.2); Carbon Dioxide 27 mmol/L (22-30); Chloride 92 mmol/L (98-107); Estimated Glomerular Filt Rate 10; Glucose 192 mg/dL (65-110); Potassium 4.1 mmol/L (3.4-5.0); Sodium 131 mmol/L (137-145)
[2025-03-29 06:55] LABS: Troponin I 0.047 ng/mL (0.000-0.034)
[2025-03-29 07:04] LABS: Anisocytosis 2+; Burr Cells 1+; Schistocytes None Seen
--- NOTE | 2025-03-29 09:15 | PM.CNCAR ---
Assessment and Plan Assessment and plan (1) Atrial fibrillation: Qualifiers: Atrial fibrillation type: unspecified Qualified Code(s): I48.91 - Unspecified atrial fibrillation Code(s): I48.91 - Unspecified atrial fibrillation Status: Chronic Plan This is a 79-year-old woman who has chronic atrial fibrillation, angiographically modest coronary disease who is hospitalized now with a GI bleed presumably from ulcer disease as she is presenting with melanotic stool and very low hemoglobin. Anti-platelet therapy is in place because of recent peripheral vascular surgery and also chronic peripheral vascular disease. She fortunately does not require anticoagulation for her AFib because she has a left atrial appendage occlusion device that was placed about 6 years ago. We will watch her telemetry with you but at this time I do not see any significant Phil arrhythmias that are a clinical problem. She obviously does have AV node dysfunction since her heart rate is in the 60-70 and she requires no medication at all to provide rate control. She would be an exceedingly high risk patient for a pacemaker implant and I do not believe that is something that needs to be considered at this time David Rodriguez MD [facility] History of Present Illness History of Present Illness Consult date/time: 03/29/25 09:15 Reason For Visit: Gi Bleed, anemia, hemodialysis patient Narrative: This is a very complicated 79-year-old lady who I am seeing at the request of the hospitalist because of bradycardia. She is not not known to me prior to this consultation. I believe she used to follow with my partner, Dr. Becky gomez prior to her nursing home. She enters the hospital with the acute problem of apparent GI bleeding with melanotic stool, significant weakness and a very low hemoglobin of 5.9. She is taking aspirin and clopidogrel after recent lower extremity vascular surgery at [place]. Apparently she has longstanding severe peripheral vascular disease with attempts in the past to revascularize her lower extremities percutaneously which failed. Apparently she has a nonhealing ulcer in her right great toe and surgery was done of her right lower extremity at [place] the details of this we do not have as I dictate this note. Cardiac wells she has a history of angiographically very mild coronary artery disease in, chronic atrial fibrillation and implantation of a watch band left atrial appendage occlusion device at [facility] in 2019. She has hypertension, diabetes and end-stage renal disease and has been a chronic hemodialysis patient. She has pursued the idea of renal transplant but was turned down both at [place] and at the [facility] because of her multitude of comorbidities. Apparently in the ICU last evening she had a couple of episodes where she was transiently either unresponsive or poorly responsive. The the notes in the chart indicate that she was bradycardic at that time with a heart rate in the 40s. I do not see any recordings of that on the telemetry review. He is currently in her chronic atrial fibrillation with a heart rate of 60-70. She has a history of peptic ulcer disease with bleeding gastric ulcers in the past. She is alert and responsive at this time her history is difficult to obtain/understand. 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 Spinal stenosis at L4-L5 level High-grade central canal stenosis noted on MRI February 2017 Pulmonary hypertension Echocardiogram August 2019: EF 65-70 %, indeterminate left ventricular diastolic function, mild biatrial enlargement, mild mitral valve regurgitation, moderate tricuspid regurgitation, mild pulmonary hypertension with RVSP of 39 Hiatal hernia Thoracic ascending aortic aneurysm 4.[address] scan from August 2019 Anemia of chronic disease Megaloblastic anemia Paroxysmal atrial fibrillation Type 2 diabetes mellitus Hemoglobin A1c was 6.6 in July 2019. Hypertension Osteoporosis Hyperlipidemia AV fistula Left upper extremity End stage renal disease on dialysis Dialysis days are Sunday, Sunday, and Sunday. She is on the transplant list at [place]. Osteoarthritis of both knees Staphylococcal septicemia (~2013) Closed fracture of lateral portion of right tibial plateau (~2014) Surgical History Surgical History Amputated toe of left foot History of bilateral cataract extraction Amputation at midfoot 5th digit right footAnd the great toe on the left History of arthroplasty of right ankle Presence of Watchman left atrial appendage closure device History of arthroscopy (~12/07/12) wrist History of colonoscopy (~12/02/15) History of knee replacement (~2015) right Family History Family History Father Hypertension Heart disease Mother Diabetes mellitus Hypertension Tobacco dependence Lung cancer Sibling Heart disease Social History Social History Social History: The patient is and lives in [place]. She is originally from [place]. 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 She has 2 daughters who live in [place]. She has 1 son who lives in [facility] . She designates her daughters as her surrogate decision makers. She is a lifelong nonsmoker. No alcohol or drug abuse. Primary care physician: Dr. David Coppola Code status: Full code Smoking status: Never smoker Second hand tobacco smoke exposure: No Alcohol intake: never Substance use: never Substance use type: does not use Do You Feel Safe in your Home?: Yes Lack of Transportation: No Lack of Food: Never True Current Housing: I Have Housing Concerned About Future Housing: No Difficulty Paying Gas/Electric Bills: No Difficulty Paying for Meds: No Currently Unemployed: No Education: Don't Know Difficulty w/ Childcare or Family Care: No Gender identity (if verbalized by the patient): Female Spiritual care concerns: No Agree to blood products: Yes Meds Home Medications and Allergies Home Medications ?Medication ?Instructions ?Recorded ?Confirmed ?Type acetaminophen 500 mg tablet See Rx Instructions PO Q4H PRN Pain 02/20/20 03/28/25 History (Acetaminophen Extra Strength) blood sugar diagnostic #500 ea 07/18/21 02/13/25 Rx atorvastatin 40 mg tablet 40 mg PO QPM 10/25/21 03/28/25 History vitamin B complex and vitamin C 1 cap PO DAILY 10/25/21 03/28/25 History no.20-folic acid 1 mg capsule (Renal Caps) hortencia strickland #1 ea 01/11/23 02/13/25 Rx liraglutide 0.6 mg/0.1 mL (18 mg/3 1.2 mg subcut HS 06/06/23 03/28/25 History mL) subcutaneous pen injector (Victoza 2-Agustín) Assited gait device #1 ea 08/23/23 02/13/25 Rx clotrimazole 1 % topical cream 1 applic topical Q12H 09/27/23 03/28/25 History (Antifungal (clotrimazole)) dicyclomine 10 mg capsule See Rx Instructions .Route 02/12/24 03/28/25 Rx .COMPLEX #60 caps biotin 5 mg capsule 5 mg PO QPM 10/08/24 03/28/25 History blood sugar diagnostic #500 ea 10/14/24 02/13/25 Rx tenofovir alafenamide 25 mg tablet 25 mg PO DAILY #90 tabs 10/16/24 03/28/25 Rx trazodone 50 mg tablet 100 mg (2 x 50 mg) PO QHS #180 tabs 12/31/24 03/28/25 Rx rollator #1 ea 01/01/25 02/13/25 Rx denosumab 60 mg/mL subcutaneous 60 mg subcut [id number] #1 mL 01/05/25 03/28/25 Rx syringe (Prolia) pantoprazole 40 mg tablet,delayed 40 mg PO Q12HR #60 tabs 01/20/25 03/28/25 Rx release pen needle, diabetic 32 gauge x #100 ea 01/20/25 02/13/25 Rx 5/32 insulin degludec 100 unit/mL (3 10 unit (0.1 mL) subcut HS #15 mL 02/03/25 03/28/25 Rx mL) subcutaneous pen (Tresiba FlexTouch U-100 insulin) diclofenac sodium 1 % topical gel 2 g topical QID PRN discomfort 02/12/25 03/28/25 History (Arthritis Pain (diclofenac)) polyethylene glycol 3350 17 17 g PO DAILY PRN constipation 7 02/14/25 03/28/25 Rx gram/dose oral powder (Miralax) days #119 grams quetiapine 25 mg tablet (Seroquel) 25 mg PO HS 7 days #7 tabs 02/15/25 03/28/25 Rx tobramycin 0.3 % eye drops 1 drp EACH EYE Q4H #5 mL 02/18/25 03/28/25 Rx sitagliptin phosphate 100 mg 100 mg PO BID 03/28/25 03/28/25 History tablet (Januvia) Allergies Allergy/AdvReac Type Severity Reaction Status Date / Time cephalexin Allergy Mild Rash Verified 03/28/25 16:10 enalapril Allergy Unknown cough Verified 03/28/25 16:10 pioglitazone Allergy Unknown sneezing Verified 03/28/25 16:10 cefazolin AdvReac Mild nausea/dizz Verified 03/28/25 16:10 iness tramadol AdvReac Unknown hallucinati Verified 03/28/25 16:10 ons gabapentin AdvReac Hallucinati Verified 03/28/25 16:10 ng Vital Signs Vital Signs - 24 hr 03/28/25 10:12 03/28/25 10:20 03/28/25 10:29 Temperature 36.9 C Pulse Rate 44 L 74 Respiratory Rate 22 H 19 Blood Pressure 157/53 H 157/53 H Pulse Oximetry 99 100 100 Oxygen Delivery Room Air Room Air Oxygen Flow Rate Fraction of Inspired Oxygen 03/28/25 13:48 03/28/25 14:04 03/28/25 14:19 Temperature 36.6 C 36.5 C 36.8 C Pulse Rate 55 L 71 79 Respiratory Rate 20 20 21 H Blood Pressure 155/53 H 160/50 H 170/53 H Pulse Oximetry 95 97 97 Oxygen Delivery Oxygen Flow Rate Fraction of Inspired Oxygen 03/28/25 15:04 03/28/25 16:00 03/28/25 16:04 Temperature 36.4 C 36.4 C 36.5 C Pulse Rate 68 75 72 Respiratory Rate 18 16 16 Blood Pressure 159/56 H 134/55 L 122/52 L Pulse Oximetry 98 100 100 Oxygen Delivery Oxygen Flow Rate Fraction of Inspired Oxygen 03/28/25 16:24 03/28/25 17:00 03/28/25 18:04 Temperature 36.4 C Pulse Rate 75 75 72 Respiratory Rate 16 Blood Pressure 134/55 L Pulse Oximetry 100 94 98 Oxygen Delivery Room Air Nasal Cannula Oxygen Flow Rate 2 Fraction of Inspired Oxygen 03/28/25 18:20 03/28/25 18:35 03/28/25 19:15 Temperature 36.8 C 36.8 C Pulse Rate 78 72 76 Respiratory Rate 18 18 Blood Pressure 105/40 L 118/89 Pulse Oximetry 100 100 Oxygen Delivery Oxygen Flow Rate Fraction of Inspired Oxygen 03/28/25 19:30 03/28/25 19:45 03/28/25 20:00 Temperature 36.8 C Pulse Rate 79 78 72 Respiratory Rate 18 Blood Pressure 118/89 Pulse Oximetry 100 Oxygen Delivery Oxygen Flow Rate Fraction of Inspired Oxygen 03/28/25 20:00 03/28/25 20:15 03/28/25 20:30 Temperature Pulse Rate 81 73 73 Respiratory Rate Blood Pressure Pulse Oximetry Oxygen Delivery Oxygen Flow Rate Fraction of Inspired Oxygen 03/28/25 20:44 03/28/25 20:45 03/28/25 21:00 Temperature Pulse Rate 68 49 L Respiratory Rate Blood Pressure Pulse Oximetry 99 Oxygen Delivery Nasal Cannula Oxygen Flow Rate 2 Fraction of Inspired Oxygen 03/28/25 21:15 03/28/25 21:30 03/28/25 21:45 Temperature Pulse Rate 56 L 68 64 Respiratory Rate Blood Pressure Pulse Oximetry Oxygen Delivery Oxygen Flow Rate Fraction of Inspired Oxygen 03/28/25 21:57 03/28/25 22:01 03/28/25 22:10 Temperature Pulse Rate 57 L Respiratory Rate Blood Pressure 82/48 L 136/34 L Pulse Oximetry Oxygen Delivery Oxygen Flow Rate Fraction of Inspired Oxygen 03/28/25 22:15 03/28/25 22:27 03/28/25 22:30 Temperature Pulse Rate 67 73 Respiratory Rate Blood Pressure 142/46 H Pulse Oximetry Oxygen Delivery Oxygen Flow Rate Fraction of Inspired Oxygen 03/28/25 22:45 03/28/25 23:00 03/28/25 23:15 Temperature Pulse Rate 68 66 64 Respiratory Rate Blood Pressure Pulse Oximetry Oxygen Delivery Oxygen Flow Rate Fraction of Inspired Oxygen 03/28/25 23:30 03/28/25 23:45 03/29/25 00:00 Temperature Pulse Rate 61 37 L Respiratory Rate Blood Pressure Pulse Oximetry 100 Oxygen Delivery BiPAP Oxygen Flow Rate Fraction of Inspired Oxygen 30 03/29/25 00:00 03/29/25 00:00 03/29/25 00:15 Temperature 37.0 C Pulse Rate 56 L 64 67 Respiratory Rate 22 H 18 Blood Pressure 121/53 L Pulse Oximetry 93 92 Oxygen Delivery Oxygen Flow Rate Fraction of Inspired Oxygen 03/29/25 00:24 03/29/25 00:30 03/29/25 00:31 Temperature Pulse Rate 67 51 L 30 L Respiratory Rate 24 H 19 19 Blood Pressure 121/53 L 136/44 L Pulse Oximetry 91 94 95 Oxygen Delivery Oxygen Flow Rate Fraction of Inspired Oxygen 03/29/25 00:45 03/29/25 00:50 03/29/25 01:00 Temperature Pulse Rate 70 66 63 Respiratory Rate 16 24 H 20 Blood Pressure Pulse Oximetry 99 98 95 Oxygen Delivery BiPAP Oxygen Flow Rate Fraction of Inspired Oxygen 03/29/25 01:06 03/29/25 01:15 03/29/25 01:16 Temperature Pulse Rate 68 69 74 Respiratory Rate 20 21 H Blood Pressure 116/51 L 122/44 L Pulse Oximetry 99 99 Oxygen Delivery Oxygen Flow Rate Fraction of Inspired Oxygen 03/29/25 01:30 03/29/25 01:31 03/29/25 01:45 Temperature Pulse Rate 76 78 83 Respiratory Rate 22 H 26 H 22 H Blood Pressure 117/44 L Pulse Oximetry 100 100 100 Oxygen Delivery Oxygen Flow Rate Fraction of Inspired Oxygen 03/29/25 02:00 03/29/25 02:00 03/29/25 02:00 Temperature 36.6 C Pulse Rate 64 66 71 Respiratory Rate 24 H Blood Pressure 111/41 L 144/51 H Pulse Oximetry 10 L Oxygen Delivery Oxygen Flow Rate Fraction of Inspired Oxygen 03/29/25 02:00 03/29/25 02:01 03/29/25 02:15 Temperature Pulse Rate 73 67 74 Respiratory Rate 24 H 21 H 18 Blood Pressure 111/41 L Pulse Oximetry 100 100 100 Oxygen Delivery Oxygen Flow Rate Fraction of Inspired Oxygen 03/29/25 02:16 03/29/25 02:30 03/29/25 02:31 Temperature Pulse Rate 74 89 84 Respiratory Rate 20 20 16 Blood Pressure 114/37 L 144/51 H Pulse Oximetry 100 100 100 Oxygen Delivery Oxygen Flow Rate Fraction of Inspired Oxygen 03/29/25 02:37 03/29/25 03:01 03/29/25 03:16 Temperature Pulse Rate 76 56 L 62 Respiratory Rate 24 H 25 H 17 Blood Pressure 116/46 L Pulse Oximetry 100 98 90 Oxygen Delivery BiPAP Oxygen Flow Rate Fraction of Inspired Oxygen 03/29/25 03:30 03/29/25 03:31 03/29/25 03:42 Temperature Pulse Rate 75 73 Respiratory Rate 24 H 20 Blood Pressure 125/48 L Pulse Oximetry 89 L 100 Oxygen Delivery Nasal Cannula Oxygen Flow Rate 2 Fraction of Inspired Oxygen 03/29/25 03:46 03/29/25 04:00 03/29/25 04:00 Temperature 36.7 C Pulse Rate 64 75 70 Respiratory Rate 21 H 24 H Blood Pressure 118/49 L 111/43 L 111/43 L Pulse Oximetry 100 100 Oxygen Delivery Oxygen Flow Rate Fraction of Inspired Oxygen 03/29/25 04:00 03/29/25 04:01 03/29/25 04:16 Temperature Pulse Rate 77 73 62 Respiratory Rate 14 21 H Blood Pressure 111/43 L 91/39 L Pulse Oximetry 100 100 Oxygen Delivery Oxygen Flow Rate Fraction of Inspired Oxygen 03/29/25 04:31 03/29/25 04:46 03/29/25 05:01 Temperature Pulse Rate 75 70 64 Respiratory Rate 20 19 25 H Blood Pressure 99/40 L 104/39 L 109/43 L Pulse Oximetry 100 100 100 Oxygen Delivery Oxygen Flow Rate Fraction of Inspired Oxygen 03/29/25 05:16 03/29/25 05:19 03/29/25 05:31 Temperature Pulse Rate 60 79 71 Respiratory Rate 25 H 20 21 H Blood Pressure 110/36 L 104/45 L Pulse Oximetry 100 100 99 Oxygen Delivery Oxygen Flow Rate Fraction of Inspired Oxygen 03/29/25 05:46 03/29/25 05:52 03/29/25 06:00 Temperature 36.6 C Pulse Rate 67 68 Respiratory Rate 16 Blood Pressure Pulse Oximetry 100 Oxygen Delivery Oxygen Flow Rate Fraction of Inspired Oxygen 03/29/25 06:00 Temperature Pulse Rate 74 Respiratory Rate Blood Pressure 109/41 L Pulse Oximetry Oxygen Delivery Oxygen Flow Rate Fraction of Inspired Oxygen Exam Const: Other: Elderly very frail lady appearing older than her stated age who is alert and responsive HENMT: Mouth: Yes moist mucous membranes Eyes: Sclera: sclerae normal Neck: Neck: supple and no JVD Resp: Effort & Inspection: normal respiratory effort Auscultation: clear to auscultation bilaterally Cardio: Rate: regular rate Rhythm: abnormal rhythm irregularly irregular GI: GI Palp: Yes Soft to palpation Skin: General skin exam: normal color Neuro: Other: Alert and oriented x3, once again history is difficult to understand for me Extrem: Other: Extremities are warm, pulses are not palpable in the feet bilaterally Results Labs and Meds 03/29/25 06:07 03/29/25 06:07 Lab results: Cardiac Enzymes 03/28/25 03/28/25 03/28/25 Range/Units 10:38 23:01 23:01 AST 32 30 (14-36) U/L Troponin I 0.050 H* Cancelled (0.000-0.034) ng/mL 03/29/25 03/29/25 Range/Units 02:24 06:07 AST (14-36) U/L Troponin I 0.053 H* 0.047 H* (0.000-0.034) ng/mL Coagulation 03/28/25 Range/Units 15:29 PT 14.5 (11.1-14.7) Seconds APTT 29.8 (22.3-36.8) Seconds CBC 03/28/25 03/28/25 03/29/25 Range/Units 10:38 23:01 02:24 WBC 7.1 (4.5-10.0) K/mm3 RBC 1.90 L (4.2-5.4) M/mm3 Hgb 5.9 L* 8.9 L D 8.6 L (12.0-15.0) g/dL Hct 19.7 L* 29.2 L 28.9 L (37.0-47.0) % Plt Count 166 (150-375) k/mm3 Lymph # (Auto) 0.62 L (0.9-3.2) K/mm3 [place]wey # (Auto) 0.6 (0.1-0.6) K/mm3 Eos # (Auto) 0.0 (0-0.3) K/mm3 Baso # (Auto) 0.0 (0.0-0.1) K/mm3 03/29/25 Range/Units 06:07 WBC 11.1 H (4.5-10.0) K/mm3 RBC 2.94 L (4.2-5.4) M/mm3 Hgb 8.6 L (12.0-15.0) g/dL Hct 28.1 L (37.0-47.0) % Plt Count 192 (150-375) k/mm3 Lymph # (Auto) 1.67 (0.9-3.2) K/mm3 Dewey # (Auto) 1.1 H (0.1-0.6) K/mm3 Eos # (Auto) 0.2 (0-0.3) K/mm3 Baso # (Auto) 0.1 (0.0-0.1) K/mm3 Comprehensive Metabolic Panel 03/28/25 03/28/25 03/29/25 Range/Units 10:38 23:01 06:07 Sodium 132 L 132 L 131 L (137-145) mmol/L Potassium 3.8 3.9 4.1 (3.4-5.0) mmol/L Chloride 93 L 95 L 92 L (98-107) mmol/L Carbon Dioxide 32 H 29 27 (22-30) mmol/L BUN 45 H D 50 H 54 H (7-17) mg/dL Creatinine 3.29 H 3.97 H 4.11 H (0.7-1.0) mg/dL Glucose 169 H 145 H 192 H (65-110) mg/dL Calcium 9.6 9.3 8.8 (8.4-10.2) mg/dL AST 32 30 (14-36) U/L ALT 23 21 (6-35) U/L Alkaline Phosphatase 178 H 147 H (38-126) U/L Total Protein 5.9 L 5.8 L (6.3-8.2) g/dL Albumin 3.5 3.6 (3.5-5.1) g/dL Intake and Output 03/28/25 03/29/25 03/29/25 23:59 07:59 15:59 Intake Total 990 49.7 Output Total 0 Balance 990 49.7 Intake: IV 100 49.7 DOPamine 400 MG/D5W 250 ML 400 49.7 mg In 250 ml @ 5 MCG/KG/MIN 10. 163 mls/hr IV CONT .Q24H THERESE Rx #:[id number] levETIRAcetam 1000MG/[id number] 100 1,000 mg In 100 ml @ 400 mls/hr IVPB ONCE STA Rx#:[id number] Intake (Blood Product) Amt 650 Leuko Reduced Rbc Bag 1 Unit 350 [id number] Leuko Reduced Rbc Low Volume 300 Unit [id number] Oral 240 0 Output: Urine 0
[2025-03-29] MEDS: VITAMIN B CMPLX/VIT C/FOLIC AC 1 CAPSULE 1 CAP PO (09:56)
[2025-03-29] MEDS: PANTOPRAZOLE 40 MG TABLET PO (09:56)
[2025-03-29] MEDS: ACETAMINOPHEN 325 MG TABLET 650 MG PO ×3 (09:58→18:52)
--- NOTE | 2025-03-29 11:41 | WPDCNINT ---
Assessment and Plan Assessment and plan (1) Paroxysmal atrial fibrillation: Code(s): I48.0 - Paroxysmal atrial fibrillation Status: Acute Assessment and Plan: Currently in AFib. Rate is controlled She is not a candidate for anticoagulation due to history of GI bleed gastric ulcer and current GI bleed (2) Bradycardia: Code(s): R00.1 - Bradycardia, unspecified Status: Acute Assessment and Plan: Patient has slow AFib and had episode of bradycardia on the floor and was transferred to ICU. On review patient does have pause is 2-3 second duration Bradycardia is worse when she is sleeping and improves as she is more awake. She is currently on 2.5 mics of dopamine and I will try to wean it off if possible Patient was evaluated by Cardiology. Cardiology recommends monitoring at this time patient may need pacemaker depending on how she does Echocardiogram done in 08/2024 reviewed and showed EF of 65% with concentric left ventricle thickness and diastolic dysfunction. She also had mild aortic stenosis along with moderate pulmonary hypertension. (3) Hyperlipidemia: Code(s): E78.5 - Hyperlipidemia, unspecified Status: Chronic Assessment and Plan: On atorvastatin (4) Upper GI bleed: Code(s): K92.2 - Gastrointestinal hemorrhage, unspecified Status: Acute Assessment and Plan: Patient has history of gastric ulcer and now presented with complaints and hemoglobin level consistent with upper GI bleed CT abdomen pelvis negative for any perforation. IV Protonix q.12 hours Serial hemoglobin monitoring Patient has been transfuse 2 units of PRBC GI consult pending (5) Upper abdominal pain: Code(s): R10.10 - Upper abdominal pain, unspecified Status: Acute Assessment and Plan: Epigastric pain with mild tenderness. Ill could be secondary to gastric ulcer. Will check lipase CT scan did not show any evidence off pancreatitis although it did show colitis. (6) ESRD (end stage renal disease) on dialysis: Code(s): N18.6 - End stage renal disease; Z99.2 - Dependence on renal dialysis Status: Chronic Assessment and Plan: Consult nephrology for hemodialysis (7) Anemia: Code(s): D64.9 - Anemia, unspecified Status: Acute Assessment and Plan: Multifactorial anemia likely exacerbated with GI bleed. See above Request Nephrology to start Procrit (8) Colitis: Code(s): K52.9 - Noninfective gastroenteritis and colitis, unspecified Status: Inactive Assessment and Plan: CT abdomen pelvis suggestive of colitis. Will start empiric broad-spectrum antibiotics Unlikely to be ischemic as lactic acid level was normal although patient has significant peripheral arterial disease Plan DVT prophylaxis -S CD Stress ulcer prophylaxis -PPI Nutrition - NPO Code Status - Full Code Total Critical Care Time - 40 minutes Due to a high probability of clinically significant, life threatening deterioration, the patient required my highest level of preparedness to intervene emergently and I personally spent this critical care time directly and personally managing the patient. This critical care time included obtaining a history; examining the patient; pulse oximetry; ordering and review of studies; arranging urgent treatment with development of a management plan; evaluation of patient's response to treatment; frequent reassessment; and discussions with other providers. It was exclusive of separately billable procedures and treating other patients and teaching time. Please see Assessment and Plan section and the rest of the note for further information on patient assessment and treatment Applications Sales Consultant Consult Note Consult date: 03/29/25 Reason for consult: GI bleed, ready cardia HPI: Shasta Hendricks is a 79 year old female with multiple medical problems including severe peripheral artery disease status post multiple interventions, hepatitis-B, GERD, history of gastric ulcer, colon polyps, spinal stenosis, pulmonary hypertension, aortic aneurysm, anemia, AFib, type 2 diabetes, end-stage renal disease on hemodialysis presented to ER yesterday with chief complaint of dark black stools and weakness. Patient states she had a procedure done for her peripheral arterial disease and right leg around 10 days ago and since then she has been noticing black stools with some slight bowel movements with bright red blood. She has been feeling weak and shortness a breath on exertion. She denies any fever chills or chest pain. She does complain of mild abdominal pain in epigastric area. She states this pain is secondary to her gastric ulcer. She states that she was not given her gastric ulcer medication after the procedure. All the systems were reviewed and were negative. Workup in the ER showed hemoglobin of 5.9 creatinine of 3.[address] abdomen pelvis showed colitis which was likely infectious inflammatory versus ischemic. But her lactic acid level was normal. Chest x-ray showed trace effusions and bilateral atelectasis. Patient was transferred [facility] and GI was consulted. Patient was also started on Protonix Last night patient had a rapid response due to low blood pressure. Patient was found to be bradycardic with slow AFib there was a concern the patient was having pauses as patient was transferred to ICU. Patient was started on low-dose dopamine and Cardiology consulted. This morning patient continues to in 5 mics of dopamine. She is in AFib with slow ventricular rate which improves as she wakes up. He has no other new complaints. Review of Systems Review of Systems: All systems reviewed & are unremarkable except as noted in HPI and below (HPI) [facility] Past Medical History Medical History (Updated 03/29/25 @ 11:56 by Dean Rayo MD) Colitis 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 Spinal stenosis at L4-L5 level High-grade central canal stenosis noted on MRI February 2017 Pulmonary hypertension Echocardiogram August 2019: EF 65-70 %, indeterminate left ventricular diastolic function, mild biatrial enlargement, mild mitral valve regurgitation, moderate tricuspid regurgitation, mild pulmonary hypertension with RVSP of 39 Hiatal hernia Thoracic ascending aortic aneurysm 4.[address] scan from August 2019 Anemia of chronic disease Megaloblastic anemia Paroxysmal atrial fibrillation Type 2 diabetes mellitus Hemoglobin A1c was 6.6 in July 2019. Hypertension Osteoporosis Hyperlipidemia AV fistula Left upper extremity End stage renal disease on dialysis Dialysis days are Sunday, Sunday, and Sunday. She is on the transplant list at [place]. Osteoarthritis of both knees Staphylococcal septicemia (~2013) Closed fracture of lateral portion of right tibial plateau (~2014) Surgical History Surgical History Amputated toe of left foot History of bilateral cataract extraction Amputation at midfoot 5th digit right footAnd the great toe on the left History of arthroplasty of right ankle Presence of Watchman left atrial appendage closure device History of arthroscopy (~12/07/12) wrist History of colonoscopy (~12/02/15) History of knee replacement (~2015) right Family History Family History Father Hypertension Heart disease Mother Diabetes mellitus Hypertension Tobacco dependence Lung cancer Sibling Heart disease Social History Social History Social History: The patient is and lives in [place]. She is originally from [place]. 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 She has 2 daughters who live in [place]. She has 1 son who lives in [facility] . She designates her daughters as her surrogate decision makers. She is a lifelong nonsmoker. No alcohol or drug abuse. Primary care physician: Dr. David Coppola Code status: Full code Smoking status: Never smoker Second hand tobacco smoke exposure: No Alcohol intake: never Substance use: never Substance use type: does not use Do You Feel Safe in your Home?: Yes Lack of Transportation: No Lack of Food: Never True Current Housing: I Have Housing Concerned About Future Housing: No Difficulty Paying Gas/Electric Bills: No Difficulty Paying for Meds: No Currently Unemployed: No Education: Don't Know Difficulty w/ Childcare or Family Care: No Gender identity (if verbalized by the patient): Female Spiritual care concerns: No Agree to blood products: Yes Meds Home Medications and Allergies Home Medications ?Medication ?Instructions ?Recorded ?Confirmed ?Type acetaminophen 500 mg tablet See Rx Instructions PO Q4H PRN Pain 02/20/20 03/28/25 History (Acetaminophen Extra Strength) blood sugar diagnostic #500 ea 07/18/21 02/13/25 Rx atorvastatin 40 mg tablet 40 mg PO QPM 10/25/21 03/28/25 History vitamin B complex and vitamin C 1 cap PO DAILY 10/25/21 03/28/25 History no.20-folic acid 1 mg capsule (Renal Caps) hortencia strickland #1 ea 01/11/23 02/13/25 Rx liraglutide 0.6 mg/0.1 mL (18 mg/3 1.2 mg subcut HS 06/06/23 03/28/25 History mL) subcutaneous pen injector (Victoza 2-Agustín) Assited gait device #1 ea 08/23/23 02/13/25 Rx clotrimazole 1 % topical cream 1 applic topical Q12H 09/27/23 03/28/25 History (Antifungal (clotrimazole)) dicyclomine 10 mg capsule See Rx Instructions .Route 02/12/24 03/28/25 Rx .COMPLEX #60 caps biotin 5 mg capsule 5 mg PO QPM 10/08/24 03/28/25 History blood sugar diagnostic #500 ea 10/14/24 02/13/25 Rx tenofovir alafenamide 25 mg tablet 25 mg PO DAILY #90 tabs 10/16/24 03/28/25 Rx trazodone 50 mg tablet 100 mg (2 x 50 mg) PO QHS #180 tabs 12/31/24 03/28/25 Rx rollator #1 ea 01/01/25 02/13/25 Rx denosumab 60 mg/mL subcutaneous 60 mg subcut [id number] #1 mL 01/05/25 03/28/25 Rx syringe (Prolia) pantoprazole 40 mg tablet,delayed 40 mg PO Q12HR #60 tabs 01/20/25 03/28/25 Rx release pen needle, diabetic 32 gauge x #100 ea 01/20/25 02/13/25 Rx /32 insulin degludec 100 unit/mL (3 10 unit (0.1 mL) subcut HS #15 mL 02/03/25 03/28/25 Rx mL) subcutaneous pen (Tresiba FlexTouch U-100 insulin) diclofenac sodium 1 % topical gel 2 g topical QID PRN discomfort 02/12/25 03/28/25 History (Arthritis Pain (diclofenac)) polyethylene glycol 3350 17 17 g PO DAILY PRN constipation 7 02/14/25 03/28/25 Rx gram/dose oral powder (Miralax) days #119 grams quetiapine 25 mg tablet (Seroquel) 25 mg PO HS 7 days #7 tabs 02/15/25 03/28/25 Rx tobramycin 0.3 % eye drops 1 drp EACH EYE Q4H #5 mL 02/18/25 03/28/25 Rx sitagliptin phosphate 100 mg 100 mg PO BID 03/28/25 03/28/25 History tablet (Januvia) Allergies Allergy/AdvReac Type Severity Reaction Status Date / Time cephalexin Allergy Mild Rash Verified 03/28/25 16:10 enalapril Allergy Unknown cough Verified 03/28/25 16:10 pioglitazone Allergy Unknown sneezing Verified 03/28/25 16:10 cefazolin AdvReac Mild nausea/dizz Verified 03/28/25 16:10 iness tramadol AdvReac Unknown hallucinati Verified 03/28/25 16:10 ons gabapentin AdvReac Hallucinati Verified 03/28/25 16:10 ng Vital Signs Vital Signs - 24 hr 03/28/25 13:48 03/28/25 14:04 03/28/25 14:19 Temperature 36.6 C 36.5 C 36.8 C Pulse Rate 55 L 71 79 Respiratory Rate 20 20 21 H Blood Pressure 155/53 H 160/50 H 170/53 H Pulse Oximetry 95 97 97 Oxygen Delivery Oxygen Flow Rate Fraction of Inspired Oxygen 03/28/25 15:04 03/28/25 16:00 03/28/25 16:04 Temperature 36.4 C 36.4 C 36.5 C Pulse Rate 68 75 72 Respiratory Rate 18 16 16 Blood Pressure 159/56 H 134/55 L 122/52 L Pulse Oximetry 98 100 100 Oxygen Delivery Oxygen Flow Rate Fraction of Inspired Oxygen 03/28/25 16:24 03/28/25 17:00 03/28/25 18:04 Temperature 36.4 C Pulse Rate 75 75 72 Respiratory Rate 16 Blood Pressure 134/55 L Pulse Oximetry 100 94 98 Oxygen Delivery Room Air Nasal Cannula Oxygen Flow Rate 2 Fraction of Inspired Oxygen 03/28/25 18:20 03/28/25 18:35 03/28/25 19:15 Temperature 36.8 C 36.8 C Pulse Rate 78 72 76 Respiratory Rate 18 18 Blood Pressure 105/40 L 118/89 Pulse Oximetry 100 100 Oxygen Delivery Oxygen Flow Rate Fraction of Inspired Oxygen 03/28/25 19:30 03/28/25 19:45 03/28/25 20:00 Temperature 36.8 C Pulse Rate 79 78 72 Respiratory Rate 18 Blood Pressure 118/89 Pulse Oximetry 100 Oxygen Delivery Oxygen Flow Rate Fraction of Inspired Oxygen 03/28/25 20:00 03/28/25 20:15 03/28/25 20:30 Temperature Pulse Rate 81 73 73 Respiratory Rate Blood Pressure Pulse Oximetry Oxygen Delivery Oxygen Flow Rate Fraction of Inspired Oxygen 03/28/25 20:44 03/28/25 20:45 03/28/25 21:00 Temperature Pulse Rate 68 49 L Respiratory Rate Blood Pressure Pulse Oximetry 99 Oxygen Delivery Nasal Cannula Oxygen Flow Rate 2 Fraction of Inspired Oxygen 03/28/25 21:15 03/28/25 21:30 03/28/25 21:45 Temperature Pulse Rate 56 L 68 64 Respiratory Rate Blood Pressure Pulse Oximetry Oxygen Delivery Oxygen Flow Rate Fraction of Inspired Oxygen 03/28/25 21:57 03/28/25 22:01 03/28/25 22:10 Temperature Pulse Rate 57 L Respiratory Rate Blood Pressure 82/48 L 136/34 L Pulse Oximetry Oxygen Delivery Oxygen Flow Rate Fraction of Inspired Oxygen 03/28/25 22:15 03/28/25 22:27 03/28/25 22:30 Temperature Pulse Rate 67 73 Respiratory Rate Blood Pressure 142/46 H Pulse Oximetry Oxygen Delivery Oxygen Flow Rate Fraction of Inspired Oxygen 03/28/25 22:45 03/28/25 23:00 03/28/25 23:15 Temperature Pulse Rate 68 66 64 Respiratory Rate Blood Pressure Pulse Oximetry Oxygen Delivery Oxygen Flow Rate Fraction of Inspired Oxygen 03/28/25 23:30 03/28/25 23:45 03/29/25 00:00 Temperature Pulse Rate 61 37 L Respiratory Rate Blood Pressure Pulse Oximetry 100 Oxygen Delivery BiPAP Oxygen Flow Rate Fraction of Inspired Oxygen 30 03/29/25 00:00 03/29/25 00:00 03/29/25 00:15 Temperature 37.0 C Pulse Rate 56 L 64 67 Respiratory Rate 22 H 18 Blood Pressure 121/53 L Pulse Oximetry 93 92 Oxygen Delivery Oxygen Flow Rate Fraction of Inspired Oxygen 03/29/25 00:24 03/29/25 00:30 03/29/25 00:31 Temperature Pulse Rate 67 51 L 30 L Respiratory Rate 24 H 19 19 Blood Pressure 121/53 L 136/44 L Pulse Oximetry 91 94 95 Oxygen Delivery Oxygen Flow Rate Fraction of Inspired Oxygen 03/29/25 00:45 03/29/25 00:50 03/29/25 01:00 Temperature Pulse Rate 70 66 63 Respiratory Rate 16 24 H 20 Blood Pressure Pulse Oximetry 99 98 95 Oxygen Delivery BiPAP Oxygen Flow Rate Fraction of Inspired Oxygen 03/29/25 01:06 03/29/25 01:15 03/29/25 01:16 Temperature Pulse Rate 68 69 74 Respiratory Rate 20 21 H Blood Pressure 116/51 L 122/44 L Pulse Oximetry 99 99 Oxygen Delivery Oxygen Flow Rate Fraction of Inspired Oxygen 03/29/25 01:30 03/29/25 01:31 03/29/25 01:45 Temperature Pulse Rate 76 78 83 Respiratory Rate 22 H 26 H 22 H Blood Pressure 117/44 L Pulse Oximetry 100 100 100 Oxygen Delivery Oxygen Flow Rate Fraction of Inspired Oxygen 03/29/25 02:00 03/29/25 02:00 03/29/25 02:00 Temperature 36.6 C Pulse Rate 64 66 71 Respiratory Rate 24 H Blood Pressure 111/41 L 144/51 H Pulse Oximetry 10 L Oxygen Delivery Oxygen Flow Rate Fraction of Inspired Oxygen 03/29/25 02:00 03/29/25 02:01 03/29/25 02:15 Temperature Pulse Rate 73 67 74 Respiratory Rate 24 H 21 H 18 Blood Pressure 111/41 L Pulse Oximetry 100 100 100 Oxygen Delivery Oxygen Flow Rate Fraction of Inspired Oxygen 03/29/25 02:16 03/29/25 02:30 03/29/25 02:31 Temperature Pulse Rate 74 89 84 Respiratory Rate 20 20 16 Blood Pressure 114/37 L 144/51 H Pulse Oximetry 100 100 100 Oxygen Delivery Oxygen Flow Rate Fraction of Inspired Oxygen 03/29/25 02:37 03/29/25 03:01 03/29/25 03:16 Temperature Pulse Rate 76 56 L 62 Respiratory Rate 24 H 25 H 17 Blood Pressure 116/46 L Pulse Oximetry 100 98 90 Oxygen Delivery BiPAP Oxygen Flow Rate Fraction of Inspired Oxygen 03/29/25 03:30 03/29/25 03:31 03/29/25 03:42 Temperature Pulse Rate 75 73 Respiratory Rate 24 H 20 Blood Pressure 125/48 L Pulse Oximetry 89 L 100 Oxygen Delivery Nasal Cannula Oxygen Flow Rate 2 Fraction of Inspired Oxygen 03/29/25 03:46 03/29/25 04:00 03/29/25 04:00 Temperature 36.7 C Pulse Rate 64 75 70 Respiratory Rate 21 H 24 H Blood Pressure 118/49 L 111/43 L 111/43 L Pulse Oximetry 100 100 Oxygen Delivery Oxygen Flow Rate Fraction of Inspired Oxygen 03/29/25 04:00 03/29/25 04:01 03/29/25 04:16 Temperature Pulse Rate 77 73 62 Respiratory Rate 14 21 H Blood Pressure 111/43 L 91/39 L Pulse Oximetry 100 100 Oxygen Delivery Oxygen Flow Rate Fraction of Inspired Oxygen 03/29/25 04:31 03/29/25 04:46 03/29/25 05:01 Temperature Pulse Rate 75 70 64 Respiratory Rate 20 19 25 H Blood Pressure 99/40 L 104/39 L 109/43 L Pulse Oximetry 100 100 100 Oxygen Delivery Oxygen Flow Rate Fraction of Inspired Oxygen 03/29/25 05:16 03/29/25 05:19 03/29/25 05:31 Temperature Pulse Rate 60 79 71 Respiratory Rate 25 H 20 21 H Blood Pressure 110/36 L 104/45 L Pulse Oximetry 100 100 99 Oxygen Delivery Oxygen Flow Rate Fraction of Inspired Oxygen 03/29/25 05:46 03/29/25 05:52 03/29/25 06:00 Temperature 36.6 C Pulse Rate 67 68 Respiratory Rate 16 Blood Pressure Pulse Oximetry 100 Oxygen Delivery Oxygen Flow Rate Fraction of Inspired Oxygen 03/29/25 06:00 03/29/25 08:00 03/29/25 09:30 Temperature 36.3 C L Pulse Rate 74 70 68 Respiratory Rate 17 Blood Pressure 109/41 L 100/34 L 112/48 L Pulse Oximetry 100 Oxygen Delivery Oxygen Flow Rate Fraction of Inspired Oxygen 03/29/25 10:00 Temperature 36.6 C Pulse Rate 63 Respiratory Rate 19 Blood Pressure 109/54 L Pulse Oximetry 100 Oxygen Delivery Oxygen Flow Rate Fraction of Inspired Oxygen Exam Narrative: General: Cachectic old female who looks frail and malnourished. Lungs/Chest: Trachea central Clear BS B/L, No crackles or wheezing. Cardiac: Irregular rate and rhythm. Normal S1 S2. No murmurs Circulation: Both dorsalis pedis are palpable weak. Feet are warm. Abdomen: Normal bowel sounds.. Soft. Mild tenderness to palpation in epigastric area Extremities: No clubbing, cyanosis or edema. 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 She has a wound on right big toe which is under dressing, she has a fistula in both arms left is nonfunctional. : NAD Neurologic: Follows commands. Moves all 4 extremities PERRL AO x3 Skin: No Rash Results Labs 03/29/25 06:07 03/29/25 06:07 Labs: Impressions Abdomen/Pelvis CT 03/28/25 12:11 IMPRESSION: 1. Colitis. Likely infectious or inflammatory but given severe atherosclerotic disease, ischemic remains possible. Recommend correlation with lactate. Head CT 03/28/25 17:58 Impression: 1.No acute intracranial abnormality. Chest X-Ray 03/29/25 11:20 IMPRESSION: 1. Developing interstitial pulmonary edema. Short CBC 03/28/25 03/29/25 03/29/25 Range/Units 23:01 02:24 06:07 WBC 11.1 H (4.5-10.0) K/mm3 Hgb 8.9 L D 8.6 L 8.6 L (12.0-15.0) g/dL Hct 29.2 L 28.9 L 28.1 L (37.0-47.0) % Plt Count 192 (150-375) k/mm3 BMP 03/28/25 03/29/25 23:01 06:07 Sodium 132 L 131 L Potassium 3.9 4.1 Chloride 95 L 92 L Carbon Dioxide 29 27 BUN 50 H 54 H Creatinine 3.97 H 4.11 H Glucose 145 H 192 H Calcium 9.3 8.8 Cardiac Enzymes 03/28/25 03/28/25 03/29/25 Range/Units 23:01 23:01 02:24 Troponin I 0.050 H* Cancelled 0.053 H* (0.000-0.034) ng/mL 03/29/25 Range/Units 06:07 Troponin I 0.047 H* (0.000-0.034) ng/mL Liver Function 03/28/25 Range/Units 23:01 Total Bilirubin 0.9 (0.2-1.3) mg/dL AST 30 (14-36) U/L ALT 21 (6-35) U/L Alkaline Phosphatase 147 H (38-126) U/L Albumin 3.6 (3.5-5.1) g/dL ECG Interpretation: EKG shows slow AFib.
[2025-03-29 12:07] LABS: Hematocrit 27.5 % (37.0-47.0); Hemoglobin 8.3 g/dL (12.0-15.0); Mean Corpuscular HGB Conc 30.2 g/dl (32-36); Mean Corpuscular Hemoglobin 28.8 pg (26-34); Mean Corpuscular Volume 95.5 fl (80-100); Platelet Count Result 176 k/mm3 (150-375); Red Blood Count 2.88 M/mm3 (4.2-5.4); White Blood Count 9.9 K/mm3 (4.5-10.0)
[2025-03-29] MEDS: MEROPENEM 500 MG in SODIUM CHLORIDE 0.9% IV 100 ML 200 ML IVPB ×2 (12:07→23:41)
[2025-03-29 12:20] LABS: Lipase 61 U/L (23-300)
--- NOTE | 2025-03-29 12:22 | P.CONNP_ITS ---
Assessment and Plan Assessment and plan (1) End stage renal disease: Code(s): N18.6 - End stage renal disease Status: Chronic Assessment and Plan: * plan HD tomorrow * continue M/W/F dialysis schedule while hospitalized * follow electrolytes, volume status, and clearance (2) Upper GI bleed: Code(s): K92.2 - Gastrointestinal hemorrhage, unspecified Status: Acute Assessment and Plan: * low H/H noted on presentation in association with abdominal pain * known history of gastric ulcer * CT abdomen pelvis negative for any perforation * IV Protonix q.12 hours * serial hemoglobin monitoring * PRBC transfusion per protocol * GI consulted for further evaluation (3) Bradycardia: Code(s): R00.1 - Bradycardia, unspecified Status: Acute Assessment and Plan: * slow Afib with bradycardia * notably worse with rest/sleep and better when awake * on dopamine gtt -- wean as tolerated * Cardiology recommendations noted * possible need for pacemaker (4) Paroxysmal atrial fibrillation: Code(s): I48.0 - Paroxysmal atrial fibrillation Status: Acute Assessment and Plan: * rate controlled * no anticoagulation due to history of gastric ulcer/GI bleed and is s/p left atrial appendage occlusion device (5) Colitis: Code(s): K52.9 - Noninfective gastroenteritis and colitis, unspecified Status: Inactive Assessment and Plan: * as noted by admission CT abdomen + pelvis * empiric antibiotics * follow culture data (6) Anemia: Qualifiers: Anemia type: unspecified type Qualified Code(s): D64.9 - Anemia, unspecified Code(s): D64.9 - Anemia, unspecified Status: Chronic Assessment and Plan: * related to ESRD * complicated by #2 * Epogen with HD * follow trend of H/H (7) Peripheral arterial disease: Code(s): I73.9 - Peripheral vascular disease, unspecified Status: Acute Assessment and Plan: * known history * s/p intervention at [facility] recently prior to admission * was on plavix and ASA * currently on hold (8) Type 2 diabetes mellitus: Qualifiers: Diabetes mellitus complication status: without complication 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 Thank you for allowing me to participate in the care of this patient. L History of Present Illness Reason for Consult Consult date: 03/29/25 Reason for consult: end stage renal disease Chief Complaint Chief complaint: Gi Bleed, anemia, hemodialysis patient History of Present Illness Narrative: The patient is a 79-year-old female with a past medical history as outlined below who presented to [facility] Emergency room from home via EMS with complaints of shortness of breath, dark stools, and generalized weakness. Apparently, the patient had a procedure done (angiogram?) for her severe peripheral arterial/vascular disease in right leg about 10 days at [facility] and since that time, she has noted black stools with her bowel movements along with bright red blood. This symptom was associated with increasing shortness a breath, particularly on exertion, fatigue, generalized weakness and mild abdominal pain in epigastric area. She states this abdominal pain is somewhat similar to the pain she had when she was noted to have a gastric ulcer. Following the procedure done at [facility], she was instituted on Plavix and aspirin as well. She gave no other complaints with regard to nausea, vomiting, chest pain, palpitations, dizziness, lightheadedness, fevers, chills, or syncope. Given these progressive symptoms as mentioned, EMS was called and she was subsequently transported to the emergency room for further assessment. Workup and evaluation emergency room demonstrated the patient to be hemodynamically stable and afebrile but with labored breathing but stable oxygenation. Routine blood tests were significant for a white blood cell count of 7.1, hemoglobin 5.9, hematocrit 19.7, platelet count 166, a chemistry panel consistent with her known history of end-stage renal disease without any critical electrolyte abnormalities, and normal LFTs aside from a elevated alkaline phosphatase. Her chest x-ray showed minimal bibasilar atelectasis and/or trace pleural effusions but no other acute abnormalities and a subsequent CT scan of the abdomen/ pelvis showed colitis which was likely infectious or inflammatory verses ischemic to the presence of severe atherosclerotic disease. Given her severe anemia with this likely being the cyst source of her shortness of breath, she was typed and crossed for a packed red blood cell transfusion and initiated on IV Protonix with Gastroenterology consultation. She was subsequently admitted to the hospital for further evaluation and therapy. Overnight, the patient had a rapid response due to hypotension and lethargy/altered mental status. She was noted be hypotensive in the 80 systolic in association with bradycardia. Narcan was administered without any significant improvement in her mental status but her blood pressure improved within 5 minutes with improvement in her mentation. Her chest x-ray showed concern for possible pulmonary edema but given her bradycardia with apparent pauses, she was transferred to the ICU for low-dose dopamine with Cardiology consultation. Repeat labs this morning show improvement in her hemoglobin and hematocrit and her mentation has improved and she denies any other complaints at this time. Renal consultation was requested due to her end-stage renal disease. The patient normally dialyzes on a Sunday, Sunday, Sunday schedule under the care of Dr. Jacob Suarez at [facility]. From a dialysis perspective, she is compliant with her dialysis treatments and usually does not have any significant fluid gains in between her dialysis treatments. Her monthly labs are usually fairly stable as well.Her last dialysis treatment was on Sunday (03/28) and as far as I am aware, was uneventful. She is due for dialysis tomorrow. Currently, at the time my visit, She has no acute complaints but appears to be somewhat tired/fatigued. Review of Systems 2 Review of Systems: As per HPI. 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 History of gastric ulcer Spinal stenosis at L4-L5 level High-grade central canal stenosis noted on MRI February 2017 Pulmonary hypertension Echocardiogram August 2019: EF 65-70 %, indeterminate left ventricular diastolic function, mild biatrial enlargement, mild mitral valve regurgitation, moderate tricuspid regurgitation, mild pulmonary hypertension with RVSP of 39 Hiatal hernia Thoracic ascending aortic aneurysm 4.[address] scan from August 2019 Anemia of chronic disease Megaloblastic anemia Paroxysmal atrial fibrillation Type 2 diabetes mellitus Hemoglobin A1c was 6.6 in July 2019. Hypertension Osteoporosis Hyperlipidemia AV fistula Left upper extremity End stage renal disease on dialysis Dialysis days are Sunday, Sunday, and Sunday. She is on the transplant list at [facility]. Osteoarthritis of both knees Staphylococcal septicemia (~2013) Closed fracture of lateral portion of right tibial plateau (~2014) Surgical History Surgical History Amputated toe of left foot History of bilateral cataract extraction Amputation at midfoot 5th digit right footAnd the great toe on the left History of arthroplasty of right ankle Presence of Watchman left atrial appendage closure device History of arthroscopy (~12/07/12) wrist History of colonoscopy (~12/02/15) History of knee replacement (~2015) right Family History Family History Father Hypertension Heart disease Mother Diabetes mellitus Hypertension Tobacco dependence Lung cancer Sibling Heart disease Social History Social History Social History: The patient is and lives in [place]. She is originally from [place]. 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 She has 2 daughters who live in [place]. She has 1 son who lives in [place] . She designates her daughters as her surrogate decision makers. She is a lifelong nonsmoker. No alcohol or drug abuse. Primary care physician: Dr. David Coppola Code status: Full code Smoking status: Never smoker Second hand tobacco smoke exposure: No Alcohol intake: never Substance use: never Substance use type: does not use Do You Feel Safe in your Home?: Yes Lack of Transportation: No Lack of Food: Never True Current Housing: I Have Housing Concerned About Future Housing: No Difficulty Paying Gas/Electric Bills: No Difficulty Paying for Meds: No Currently Unemployed: No Education: Don't Know Difficulty w/ Childcare or Family Care: No Gender identity (if verbalized by the patient): Female Spiritual care concerns: No Agree to blood products: Yes Meds Home Medications and Allergies Home Medications ?Medication ?Instructions ?Recorded ?Confirmed ?Type acetaminophen 500 mg tablet See Rx Instructions PO Q4H PRN Pain 02/20/20 03/28/25 History (Acetaminophen Extra Strength) blood sugar diagnostic #500 ea 07/18/21 02/13/25 Rx atorvastatin 40 mg tablet 40 mg PO QPM 10/25/21 History vitamin B complex and vitamin C 1 cap PO DAILY 2 03/28/25 History no.20-folic acid 1 mg capsule (Renal Caps) hortencia walker #1 ea 01/11/23 02/13/25 Rx liraglutide 0.6 mg/0.1 mL (18 mg/3 1.2 mg subcut HS 03/28/25 History mL) subcutaneous pen injector ([employer] 2-Agustín) Assited gait device #1 ea 08/23/23 02/13/25 Rx clotrimazole 1 % topical cream 1 applic topical Q12H 0 09/27/23 03/28/25 History (Antifungal (clotrimazole)) dicyclomine 10 mg capsule See Rx Instructions .Route 0 02/12/24 03/28/25 Rx .COMPLEX #60 caps biotin 5 mg capsule 5 mg PO QPM 10/08/24 5 History blood sugar diagnostic #500 ea 10/14/24 02/13/25 Rx tenofovir alafenamide 25 mg tablet 25 mg PO DAILY #90 tabs 10/16/24 03/28/25 Rx trazodone 50 mg tablet 100 mg (2 x 50 mg) PO QHS #1 80 tabs 12/31/24 03/28/25 Rx rollator #1 ea 01/01/25 02/13/25 Rx denosumab 60 mg/mL subcutaneous 60 mg subcut [id number] #1 mL 01/05/25 03/28/25 Rx syringe (Prolia) pantoprazole 40 mg tablet,delayed 40 mg PO Q12HR #60 t abs 01/20/25 03/28/25 Rx release pen needle, diabetic 32 gauge x #100 ea 01/20/2502/13 Rx 5/32 insulin degludec 100 unit/mL (3 10 unit (0.1 mL) subcu t HS #15 mL 02/03/25 03/28/25 Rx mL) subcutaneous pen (Tresiba FlexTouch U-100 insulin) diclofenac sodium 1 % topical gel 2 g topical QID PRN discomfort 02/12/25 03/28/25 History (Arthritis Pain (diclofenac)) polyethylene glycol 3350 17 17 g PO DAILY PRN constipa tion 7 02/14/25 03/28/25 Rx gram/dose oral powder (Miralax) days #119 grams quetiapine 25 mg tablet (Seroquel) 25 mg PO HS 7 days #7 tabs 02/15/25 03/28/25 Rx tobramycin 0.3 % eye drops 1 drp EACH EYE Q4H #5 mL 03/28/25 Rx sitagliptin phosphate 100 mg 100 mg PO BID 03/28/25 History tablet (Januvia) Allergies Allergy/AdvReac Type Severity Reaction Status Date / Time cephalexin Allergy Mild Rash Verified 03/28/25 16:10 enalapril Allergy Unknown cough Verified 03/28/25 16:10 pioglitazone Allergy Unknown sneezing Verified 03/28/25 16:10 cefazolin AdvReac Mild nausea/dizz Verified 03/28/25 16:10 iness tramadol AdvReac Unknown hallucinati Verified 03/28/25 16:10 ons gabapentin AdvReac Hallucinati Verified 03/28/25 16:10 ng Vital Signs Vital Signs Temp Pulse Resp BP Pulse Ox O2 Del Method O2 Flow Rate 03/29/25 12:00 97.2 F L 66 20 99/42 L 100 Nasal Cannula 2 03/29/25 11:00 57 L 19 116/42 L 100 03/29/25 11:00 59 L 25 H 84/37 L 100 03/29/25 10:00 61 109/54 L 03/29/25 10:00 61 03/29/25 10:00 97.8 F 63 19 109/54 L 100 03/29/25 09:30 68 112/48 L 03/29/25 08:00 71 03/29/25 08:00 100 Nasal Cannula 2 03/29/25 08:00 68 112/48 L 03/29/25 08:00 97.4 F L 70 17 100/34 L 100 03/29/25 06:00 74 109/41 L 03/29/25 06:00 97.8 F 03/29/25 05:52 68 03/29/25 05:46 67 16 100 03/29/25 05:31 71 21 H 104/45 L 99 03/29/25 05:19 79 20 100 03/29/25 05:16 60 25 H 110/36 L 100 03/29/25 05:01 64 25 H 109/43 L 100 03/29/25 04:46 70 19 104/39 L 100 03/29/25 04:31 75 20 99/40 L 100 03/29/25 04:16 62 21 H 91/39 L 100 03/29/25 04:01 73 14 111/43 L 100 03/29/25 04:00 77 03/29/25 04:00 98.0 F 70 24 H 111/43 L 100 03/29/25 04:00 75 111/43 L 03/29/25 03:46 64 21 H 118/49 L 100 03/29/25 03:42 100 Nasal Cannula 2 03/29/25 03:31 73 20 125/48 L 03/29/25 03:30 75 24 H 89 L 03/29/25 03:16 62 17 116/46 L 90 03/29/25 03:01 56 L 25 H 98 03/29/25 02:37 76 24 H 100 BiPAP 03/29/25 02:31 84 16 144/51 H 100 03/29/25 02:30 89 20 100 03/29/25 02:16 74 20 114/37 L 100 03/29/25 02:15 74 18 100 03/29/25 02:01 67 21 H 111/41 L 100 03/29/25 02:00 73 24 H 100 03/29/25 02:00 71 144/51 H 03/29/25 02:00 97.9 F 66 24 H 111/41 L 10 L 03/29/25 02:00 64 03/29/25 01:45 83 22 H 100 03/29/25 01:31 78 26 H 117/44 L 100 03/29/25 01:30 76 22 H 100 03/29/25 01:16 74 21 H 122/44 L 99 03/29/25 01:15 69 20 99 03/29/25 01:06 68 116/51 L 03/29/25 01:00 63 20 95 03/29/25 00:50 66 24 H 98 BiPAP 03/29/25 00:45 70 16 99 03/29/25 00:31 30 L 19 136/44 L 95 03/29/25 00:30 51 L 19 94 03/29/25 00:24 67 24 H 121/53 L 91 03/29/25 00:15 67 18 92 03/29/25 00:00 64 03/29/25 00:00 98.6 F 56 L 22 H 121/53 L 93 03/29/25 00:00 100 BiPAP 03/28/25 23:45 37 L 03/28/25 23:30 61 03/28/25 23:15 64 03/28/25 23:00 66 03/28/25 22:45 68 03/28/25 22:30 73 03/28/25 22:27 142/46 H 03/28/25 22:15 67 03/28/25 22:10 136/34 L 03/28/25 22:01 57 L 03/28/25 21:57 82/48 L 03/28/25 21:45 64 03/28/25 21:30 68 03/28/25 21:15 56 L 03/28/25 21:00 49 L 03/28/25 20:45 68 03/28/25 20:44 99 Nasal Cannula 2 03/28/25 20:30 73 03/28/25 20:15 73 03/28/25 20:00 81 03/28/25 20:00 98.2 F 72 18 118/89 100 03/28/25 19:45 78 03/28/25 19:30 79 03/28/25 19:15 76 03/28/25 18:35 98.2 F 72 18 118/89 100 03/28/25 18:20 98.2 F 78 18 105/40 L 100 03/28/25 18:04 72 98 Nasal Cannula 2 Exam 2 Narrative: GENERAL APPEARANCE: frail, elderly, and cachectic female in no acute distress HEENT: normocephalic, atraumatic, normal conjunctiva and sclera, nares patient NECK: no lymphadenopathy, thyromegaly, or JVD MOUTH: normal lips, teeth, and gums CARDIOVASCULAR: IRRR, normal S1 and S2, no rub RESPIRATORY: coarse with a few crackles at the bases ABDOMEN: soft, mild TTP, nondistended, positive bowel sounds present EXTREMITIES: no evidence of cyanosis, clubbing, or edema NEUROLOGICAL: awake and alert; no focal deficits noted; + weakness Results Lab Results 03/29/25 18:51 03/29/25 06:07 Lab results: Most recent lab results ABG pH 7.302 (7.350-7.450) L 03/29/25 02:28 ABG pCO2 59.0 mmHg (35.0-45.0) H 03/29/25 02:28 ABG pO2 92.2 mmHg (80.0-100.0) 03/29/25 02:28 ABG HCO3 28.5 mEq/l (22.0-26.0) H 03/29/25 02:28 ABG O2 Saturation 96.1 % (95.0-100.0) 03/29/25 02:28 Calcium 8.8 mg/dL (8.4-10.2) 03/29/25 06:07
--- NOTE | 2025-03-29 15:28 | WPDGICN ---
Assessment and Plan Assessment and plan (1) Melena: Code(s): K92.1 - Melena Status: Acute Assessment and Plan: egd 4 months ago only gastritis iv protonix now risk of ulcer, avm, etc EGD tomorrow to assess if site of bleeding (2) Acute on chronic blood loss anemia: Code(s): D62 - Acute posthemorrhagic anemia Status: Acute Assessment and Plan: chronic anemia due to esrd will do EGD (3) ESRD (end stage renal disease) on dialysis: Code(s): N18.6 - End stage renal disease; Z99.2 - Dependence on renal dialysis Status: Chronic Assessment and Plan: by gettering operator (4) Gastritis: Qualifiers: Gastritis type: other gastritis Chronicity: acute Gastritis bleeding: with bleeding Qualified Code(s): K29.01 - Acute gastritis with bleeding Code(s): K29.70 - Gastritis, unspecified, without bleeding Status: Acute (5) Atrial fibrillation: Qualifiers: Atrial fibrillation type: unspecified Qualified Code(s): I48.91 - Unspecified atrial fibrillation Code(s): I48.91 - Unspecified atrial fibrillation Status: Chronic Assessment and Plan: by help desk internship GI Consult Note Consult date/time: 03/29/25 15:28 Reason for consult: melena HPI: Shasta Hendricks is a 79 year old female with multiple medical problems including severe peripheral artery disease status post multiple interventions and toe amputation, GERD, history of gastric ulcer however last egd 11/2024 only small size hiatal hernia and mild gastritis without source of bleeding, spinal stenosis, pulmonary hypertension, aortic aneurysm, chronic anemia, AFib, type 2 diabetes, end-stage renal disease on hemodialysis admitted with dark black stools and weakness. She is poor historian, based on records she had a procedure done for her peripheral arterial disease and right leg around 10 days ago and since then she has been noticing black stools. Here admitted with worsening shortness of breath on exertion. Also had mild abdominal pain in epigastric area. Workup in the ER showed hemoglobin of 5.9 (baseline 8-9), creatinine of 3.[address] abdomen pelvis showed colitis which was likely infectious inflammatory versus ischemic. But her lactic acid level was normal. She was admitted to icu because was found to be bradycardic with slow AFib, evaluated by help desk internship. She is on iv protonix. Review of Systems Constitutional: Constitutional: Reports weakness Eyes: Eyes: Denies blurry vision ENT: Reports Normal hearing present Cardiovascular: Cardiovascular: Denies chest pain Respiratory: Respiratory: Denies cough Gastrointestinal: Gastrointestinal: Reports melena Genitourinary: Comments: on dialysis Musculoskeletal: Comments: s/p toe amputation Integumentary/Breasts: Skin/Breast: Denies rash Neurologic: Denies Abnormal speech present Psychiatric: Psychiatric: Denies homicidal ideation [facility] Past Medical History Medical History (Updated 03/29/25 @ 11:56 by Dean Rayo MD) Colitis 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 Spinal stenosis at L4-L5 level High-grade central canal stenosis noted on MRI February 2017 Pulmonary hypertension Echocardiogram August 2019: EF 65-70 %, indeterminate left ventricular diastolic function, mild biatrial enlargement, mild mitral valve regurgitation, moderate tricuspid regurgitation, mild pulmonary hypertension with RVSP of 39 Hiatal hernia Thoracic ascending aortic aneurysm 4.[address] scan from August 2019 Anemia of chronic disease Megaloblastic anemia Paroxysmal atrial fibrillation Type 2 diabetes mellitus Hemoglobin A1c was 6.6 in July 2019. Hypertension Osteoporosis Hyperlipidemia AV fistula Left upper extremity End stage renal disease on dialysis Dialysis days are Sunday, Sunday, and Sunday. She is on the transplant list at [facility]. Osteoarthritis of both knees Staphylococcal septicemia (~2013) Closed fracture of lateral portion of right tibial plateau (~2014) Surgical History Surgical History Amputated toe of left foot History of bilateral cataract extraction Amputation at midfoot 5th digit right footAnd the great toe on the left History of arthroplasty of right ankle Presence of Watchman left atrial appendage closure device History of arthroscopy (~12/07/12) wrist History of colonoscopy (~12/02/15) History of knee replacement (~2015) right Family History Family History Father Hypertension Heart disease Mother Diabetes mellitus Hypertension Tobacco dependence Lung cancer Sibling Heart disease Social History Social History Social History: The patient is and lives in [place]. She is originally from [place]. 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 She has 2 daughters who live in [place]. She has 1 son who lives in [facility] . She designates her daughters as her surrogate decision makers. She is a lifelong nonsmoker. No alcohol or drug abuse. Primary care physician: Dr. David Coppola Code status: Full code Smoking status: Never smoker Second hand tobacco smoke exposure: No Alcohol intake: never Substance use: never Substance use type: does not use Do You Feel Safe in your Home?: Yes Lack of Transportation: No Lack of Food: Never True Current Housing: I Have Housing Concerned About Future Housing: No Difficulty Paying Gas/Electric Bills: No Difficulty Paying for Meds: No Currently Unemployed: No Education: Don't Know Difficulty w/ Childcare or Family Care: No Gender identity (if verbalized by the patient): Female Spiritual care concerns: No Agree to blood products: Yes Meds Home Medications and Allergies Home Medications ?Medication ?Instructions ?Recorded ?Confirmed ?Type acetaminophen 500 mg tablet See Rx Instructions PO Q4H PRN Pain 02/20/20 03/28/25 History (Acetaminophen Extra Strength) blood sugar diagnostic #500 ea 07/18/21 02/13/25 Rx atorvastatin 40 mg tablet 40 mg PO QPM 10/25/21 03/28/25 History vitamin B complex and vitamin C 1 cap PO DAILY 10/25/21 03/28/25 History no.20-folic acid 1 mg capsule (Renal Caps) hortencia strickland #1 ea 01/11/23 02/13/25 Rx liraglutide 0.6 mg/0.1 mL (18 mg/3 1.2 mg subcut HS 06/06/23 03/28/25 History mL) subcutaneous pen injector (Victoza 2-Agustín) Assited gait device #1 ea 08/23/23 02/13/25 Rx clotrimazole 1 % topical cream 1 applic topical Q12H 09/27/23 03/28/25 History (Antifungal (clotrimazole)) dicyclomine 10 mg capsule See Rx Instructions .Route 02/12/24 03/28/25 Rx .COMPLEX #60 caps biotin 5 mg capsule 5 mg PO QPM 10/08/24 03/28/25 History blood sugar diagnostic #500 ea 10/14/24 02/13/25 Rx tenofovir alafenamide 25 mg tablet 25 mg PO DAILY #90 tabs 10/16/24 03/28/25 Rx trazodone 50 mg tablet 100 mg (2 x 50 mg) PO QHS #180 tabs 12/31/24 03/28/25 Rx rollator #1 ea 01/01/25 02/13/25 Rx denosumab 60 mg/mL subcutaneous 60 mg subcut [id number] #1 mL 01/05/25 03/28/25 Rx syringe (Prolia) pantoprazole 40 mg tablet,delayed 40 mg PO Q12HR #60 tabs 01/20/25 03/28/25 Rx release pen needle, diabetic 32 gauge x #100 ea 01/20/25 02/13/25 Rx insulin degludec 100 unit/mL (3 10 unit (0.1 mL) subcut HS #15 mL 02/03/25 03/28/25 Rx mL) subcutaneous pen (Tresiba FlexTouch U-100 insulin) diclofenac sodium 1 % topical gel 2 g topical QID PRN discomfort 02/12/25 03/28/25 History (Arthritis Pain (diclofenac)) polyethylene glycol 3350 17 17 g PO DAILY PRN constipation 7 02/14/25 03/28/25 Rx gram/dose oral powder (Miralax) days #119 grams quetiapine 25 mg tablet (Seroquel) 25 mg PO HS 7 days #7 tabs 02/15/25 03/28/25 Rx tobramycin 0.3 % eye drops 1 drp EACH EYE Q4H #5 mL 02/18/25 03/28/25 Rx sitagliptin phosphate 100 mg 100 mg PO BID 03/28/25 03/28/25 History tablet (Januvia) Allergies Allergy/AdvReac Type Severity Reaction Status Date / Time cephalexin Allergy Mild Rash Verified 03/28/25 16:10 enalapril Allergy Unknown cough Verified 03/28/25 16:10 pioglitazone Allergy Unknown sneezing Verified 03/28/25 16:10 cefazolin AdvReac Mild nausea/dizz Verified 03/28/25 16:10 iness tramadol AdvReac Unknown hallucinati Verified 03/28/25 16:10 ons gabapentin AdvReac Hallucinati Verified 03/28/25 16:10 ng Vital Signs Vital Signs - 24 hr 03/28/25 16:00 03/28/25 16:04 03/28/25 16:24 Temperature 97.6 F 97.7 F 97.6 F Pulse Rate 75 72 75 Respiratory Rate 16 16 16 Blood Pressure 134/55 L 122/52 L 134/55 L Pulse Oximetry 100 100 100 Oxygen Delivery Oxygen Flow Rate Fraction of Inspired Oxygen 03/28/25 17:00 03/28/25 18:04 03/28/25 18:20 Temperature 98.2 F Pulse Rate 75 72 78 Respiratory Rate 18 Blood Pressure 105/40 L Pulse Oximetry 94 98 100 Oxygen Delivery Room Air Nasal Cannula Oxygen Flow Rate 2 Fraction of Inspired Oxygen 03/28/25 18:35 03/28/25 19:15 03/28/25 19:30 Temperature 98.2 F Pulse Rate 72 76 79 Respiratory Rate 18 Blood Pressure 118/89 Pulse Oximetry 100 Oxygen Delivery Oxygen Flow Rate Fraction of Inspired Oxygen 03/28/25 19:45 03/28/25 20:00 03/28/25 20:00 Temperature 98.2 F Pulse Rate 78 72 81 Respiratory Rate 18 Blood Pressure 118/89 Pulse Oximetry 100 Oxygen Delivery Oxygen Flow Rate Fraction of Inspired Oxygen 03/28/25 20:15 03/28/25 20:30 03/28/25 20:44 Temperature Pulse Rate 73 73 Respiratory Rate Blood Pressure Pulse Oximetry 99 Oxygen Delivery Nasal Cannula Oxygen Flow Rate 2 Fraction of Inspired Oxygen 03/28/25 20:45 03/28/25 21:00 03/28/25 21:15 Temperature Pulse Rate 68 49 L 56 L Respiratory Rate Blood Pressure Pulse Oximetry Oxygen Delivery Oxygen Flow Rate Fraction of Inspired Oxygen 03/28/25 21:30 03/28/25 21:45 03/28/25 21:57 Temperature Pulse Rate 68 64 Respiratory Rate Blood Pressure 82/48 L Pulse Oximetry Oxygen Delivery Oxygen Flow Rate Fraction of Inspired Oxygen 03/28/25 22:01 03/28/25 22:10 03/28/25 22:15 Temperature Pulse Rate 57 L 67 Respiratory Rate Blood Pressure 136/34 L Pulse Oximetry Oxygen Delivery Oxygen Flow Rate Fraction of Inspired Oxygen 03/28/25 22:27 03/28/25 22:30 03/28/25 22:45 Temperature Pulse Rate 73 68 Respiratory Rate Blood Pressure 142/46 H Pulse Oximetry Oxygen Delivery Oxygen Flow Rate Fraction of Inspired Oxygen 03/28/25 23:00 03/28/25 23:15 03/28/25 23:30 Temperature Pulse Rate 66 64 61 Respiratory Rate Blood Pressure Pulse Oximetry Oxygen Delivery Oxygen Flow Rate Fraction of Inspired Oxygen 03/28/25 23:45 03/29/25 00:00 03/29/25 00:00 Temperature 98.6 F Pulse Rate 37 L 56 L Respiratory Rate 22 H Blood Pressure 121/53 L Pulse Oximetry 100 93 Oxygen Delivery BiPAP Oxygen Flow Rate Fraction of Inspired Oxygen 30 03/29/25 00:00 03/29/25 00:15 03/29/25 00:24 Temperature Pulse Rate 64 67 67 Respiratory Rate 18 24 H Blood Pressure 121/53 L Pulse Oximetry 92 91 Oxygen Delivery Oxygen Flow Rate Fraction of Inspired Oxygen 03/29/25 00:30 03/29/25 00:31 03/29/25 00:45 Temperature Pulse Rate 51 L 30 L 70 Respiratory Rate 19 19 16 Blood Pressure 136/44 L Pulse Oximetry 94 95 99 Oxygen Delivery Oxygen Flow Rate Fraction of Inspired Oxygen 03/29/25 00:50 03/29/25 01:00 03/29/25 01:06 Temperature Pulse Rate 66 63 68 Respiratory Rate 24 H 20 Blood Pressure 116/51 L Pulse Oximetry 98 95 Oxygen Delivery BiPAP Oxygen Flow Rate Fraction of Inspired Oxygen 03/29/25 01:15 03/29/25 01:16 03/29/25 01:30 Temperature Pulse Rate 69 74 76 Respiratory Rate 20 21 H 22 H Blood Pressure 122/44 L Pulse Oximetry 99 99 100 Oxygen Delivery Oxygen Flow Rate Fraction of Inspired Oxygen 03/29/25 01:31 03/29/25 01:45 03/29/25 02:00 Temperature Pulse Rate 78 83 64 Respiratory Rate 26 H 22 H Blood Pressure 117/44 L Pulse Oximetry 100 100 Oxygen Delivery Oxygen Flow Rate Fraction of Inspired Oxygen 03/29/25 02:00 03/29/25 02:00 03/29/25 02:00 Temperature 97.9 F Pulse Rate 66 71 73 Respiratory Rate 24 H 24 H Blood Pressure 111/41 L 144/51 H Pulse Oximetry 10 L 100 Oxygen Delivery Oxygen Flow Rate Fraction of Inspired Oxygen 03/29/25 02:01 03/29/25 02:15 03/29/25 02:16 Temperature Pulse Rate 67 74 74 Respiratory Rate 21 H 18 20 Blood Pressure 111/41 L 114/37 L Pulse Oximetry 100 100 100 Oxygen Delivery Oxygen Flow Rate Fraction of Inspired Oxygen 03/29/25 02:30 03/29/25 02:31 03/29/25 02:37 Temperature Pulse Rate 89 84 76 Respiratory Rate 20 16 24 H Blood Pressure 144/51 H Pulse Oximetry 100 100 100 Oxygen Delivery BiPAP Oxygen Flow Rate Fraction of Inspired Oxygen 03/29/25 03:01 03/29/25 03:16 03/29/25 03:30 Temperature Pulse Rate 56 L 62 75 Respiratory Rate 25 H 17 24 H Blood Pressure 116/46 L Pulse Oximetry 98 90 89 L Oxygen Delivery Oxygen Flow Rate Fraction of Inspired Oxygen 03/29/25 03:31 03/29/25 03:42 03/29/25 03:46 Temperature Pulse Rate 73 64 Respiratory Rate 20 21 H Blood Pressure 125/48 L 118/49 L Pulse Oximetry 100 100 Oxygen Delivery Nasal Cannula Oxygen Flow Rate 2 Fraction of Inspired Oxygen 03/29/25 04:00 03/29/25 04:00 03/29/25 04:00 Temperature 98.0 F Pulse Rate 75 70 77 Respiratory Rate 24 H Blood Pressure 111/43 L 111/43 L Pulse Oximetry 100 Oxygen Delivery Oxygen Flow Rate Fraction of Inspired Oxygen 03/29/25 04:01 03/29/25 04:16 03/29/25 04:31 Temperature Pulse Rate 73 62 75 Respiratory Rate 14 21 H 20 Blood Pressure 111/43 L 91/39 L 99/40 L Pulse Oximetry 100 100 100 Oxygen Delivery Oxygen Flow Rate Fraction of Inspired Oxygen 03/29/25 04:46 03/29/25 05:01 03/29/25 05:16 Temperature Pulse Rate 70 64 60 Respiratory Rate 19 25 H 25 H Blood Pressure 104/39 L 109/43 L 110/36 L Pulse Oximetry 100 100 100 Oxygen Delivery Oxygen Flow Rate Fraction of Inspired Oxygen 03/29/25 05:19 03/29/25 05:31 03/29/25 05:46 Temperature Pulse Rate 79 71 67 Respiratory Rate 20 21 H 16 Blood Pressure 104/45 L Pulse Oximetry 100 99 100 Oxygen Delivery Oxygen Flow Rate Fraction of Inspired Oxygen 03/29/25 05:52 03/29/25 06:00 03/29/25 06:00 Temperature 97.8 F Pulse Rate 68 74 Respiratory Rate Blood Pressure 109/41 L Pulse Oximetry Oxygen Delivery Oxygen Flow Rate Fraction of Inspired Oxygen 03/29/25 08:00 03/29/25 08:00 03/29/25 08:00 Temperature 97.4 F L Pulse Rate 70 68 Respiratory Rate 17 Blood Pressure 100/34 L 112/48 L Pulse Oximetry 100 100 Oxygen Delivery Nasal Cannula Oxygen Flow Rate 2 Fraction of Inspired Oxygen 03/29/25 08:00 03/29/25 09:30 03/29/25 10:00 Temperature 97.8 F Pulse Rate 71 68 63 Respiratory Rate 19 Blood Pressure 112/48 L 109/54 L Pulse Oximetry 100 Oxygen Delivery Oxygen Flow Rate Fraction of Inspired Oxygen 03/29/25 10:00 03/29/25 10:00 03/29/25 11:00 Temperature Pulse Rate 61 61 59 L Respiratory Rate 25 H Blood Pressure 109/54 L 84/37 L Pulse Oximetry 100 Oxygen Delivery Oxygen Flow Rate Fraction of Inspired Oxygen 03/29/25 11:00 03/29/25 12:00 03/29/25 12:00 Temperature Pulse Rate 57 L 71 66 Respiratory Rate 19 20 Blood Pressure 116/42 L 99/42 L Pulse Oximetry 100 100 Oxygen Delivery Oxygen Flow Rate Fraction of Inspired Oxygen 03/29/25 12:00 03/29/25 12:00 03/29/25 14:00 Temperature 97.2 F L Pulse Rate 66 60 Respiratory Rate 21 H Blood Pressure 99/42 L 98/39 L Pulse Oximetry 100 100 Oxygen Delivery Nasal Cannula Oxygen Flow Rate 2 Fraction of Inspired Oxygen 03/29/25 14:00 03/29/25 14:00 Temperature Pulse Rate 62 62 Respiratory Rate Blood Pressure 98/39 L Pulse Oximetry Oxygen Delivery Oxygen Flow Rate Fraction of Inspired Oxygen Exam Narrative: General: Cachectic old female who looks frail and malnourished. neck: supple HENT- reactive pupils Lungs/Chest: Trachea central Clear BS B/L, No crackles or wheezing. Cardiac: Irregular rate and rhythm. Normal S1 S2. Circulation: Feet are warm. Abdomen: Normal bowel sounds.. Soft. Mild tenderness to palpation in epigastric area Extremities: No clubbing, cyanosis or edema. 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 Neurologic: Follows commands. Moves all 4 extremities PERRL AO x3 Skin: No Rash Results Labs 03/29/25 12:02 03/29/25 06:07 Labs: Short CBC 03/28/25 03/29/25 03/29/25 Range/Units 23:01 02:24 06:07 WBC 11.1 H (4.5-10.0) K/mm3 Hgb 8.9 L D 8.6 L 8.6 L (12.0-15.0) g/dL Hct 29.2 L 28.9 L 28.1 L (37.0-47.0) % Plt Count 192 (150-375) k/mm3 03/29/25 Range/Units 12:02 WBC 9.9 (4.5-10.0) K/mm3 Hgb 8.3 L (12.0-15.0) g/dL Hct 27.5 L (37.0-47.0) % Plt Count 176 (150-375) k/mm3 BMP 03/28/25 03/29/25 23:01 06:07 Sodium 132 L 131 L Potassium 3.9 4.1 Chloride 95 L 92 L Carbon Dioxide 29 27 BUN 50 H 54 H Creatinine 3.97 H 4.11 H Glucose 145 H 192 H Calcium 9.3 8.8 Cardiac Enzymes 03/28/25 03/28/25 03/29/25 Range/Units 23:01 23:01 02:24 Troponin I 0.050 H* Cancelled 0.053 H* (0.000-0.034) ng/mL 03/29/25 Range/Units 06:07 Troponin I 0.047 H* (0.000-0.034) ng/mL Liver Function 03/28/25 Range/Units 23:01 Total Bilirubin 0.9 (0.2-1.3) mg/dL AST 30 (14-36) U/L ALT 21 (6-35) U/L Alkaline Phosphatase 147 H (38-126) U/L Albumin 3.6 (3.5-5.1) g/dL
[2025-03-29] MEDS: ATORVASTATIN 40 MG TABLET PO (17:07)
[2025-03-29 19:01] LABS: Hematocrit 26.5 % (37.0-47.0); Hemoglobin 7.9 g/dL (12.0-15.0); Mean Corpuscular HGB Conc 29.8 g/dl (32-36); Mean Corpuscular Hemoglobin 28.6 pg (26-34); Mean Corpuscular Volume 96.0 fl (80-100); Platelet Count Result 167 k/mm3 (150-375); Red Blood Count 2.76 M/mm3 (4.2-5.4); White Blood Count 7.3 K/mm3 (4.5-10.0)
[2025-03-29] MEDS: PANTOPRAZOLE SODIUM IV 40 MG VIAL IV PUSH (20:45)
[2025-03-30] VITALS (40 sets, daily range): BP systolic 99–134; BP diastolic 37–85; PULSE 53–76; RESP 12–28; TEMP 36.3–37.1; O2SAT 93–100
[2025-03-30 00:42] LABS: Hematocrit 23.9 % (37.0-47.0); Hemoglobin 7.2 g/dL (12.0-15.0); Mean Corpuscular HGB Conc 30.1 g/dl (32-36); Mean Corpuscular Hemoglobin 28.5 pg (26-34); Mean Corpuscular Volume 94.5 fl (80-100); Platelet Count Result 160 k/mm3 (150-375); Red Blood Count 2.53 M/mm3 (4.2-5.4); White Blood Count 6.3 K/mm3 (4.5-10.0)
[2025-03-30] MEDS: TOBRAMYCIN SULFATE 0.3% OPHTH SOLN 5 ML 1 DROP EACH EYE ×6 (01:23→19:59)
[2025-03-30 05:21] LABS: Hematocrit 25.9 % (37.0-47.0); Hemoglobin 7.8 g/dL (12.0-15.0); Mean Corpuscular HGB Conc 30.1 g/dl (32-36); Mean Corpuscular Hemoglobin 29.1 pg (26-34); Mean Corpuscular Volume 96.6 fl (80-100); Platelet Count Result 174 k/mm3 (150-375); Red Blood Count 2.68 M/mm3 (4.2-5.4); White Blood Count 6.9 K/mm3 (4.5-10.0)
[2025-03-30 05:38] LABS: Alanine Aminotransferase 17 U/L (6-35); Albumin Level 3.2 g/dL (3.5-5.1); Alkaline Phosphatase 121 U/L (38-126); Anion Gap 10 mmol/L (4-12); Aspartate Amino Transferase 26 U/L (14-36); Bilirubin,Total 0.6 mg/dL (0.2-1.3); Blood Urea Nitrogen 58 mg/dL (7-17); Calcium 8.4 mg/dL (8.4-10.2); Carbon Dioxide 26 mmol/L (22-30); Chloride 95 mmol/L (98-107); Estimated Glomerular Filt Rate 7; Glucose 82 mg/dL (65-110); Magnesium 2.0 mg/dL (1.6-2.3); Potassium 4.3 mmol/L (3.4-5.0); Sodium 131 mmol/L (137-145); Total Protein 5.5 g/dL (6.3-8.2)
[2025-03-30 06:23] LABS: Hepatitis B Surface Antigen Negative (Negative)
[2025-03-30 06:40] LABS: Hepatitis B Surface Anti Res Negative
--- NOTE | 2025-03-30 08:42 | WPDINTPN ---
Progress Note: A&P Assessment and Plan (1) Paroxysmal atrial fibrillation: Code(s): I48.0 - Paroxysmal atrial fibrillation Status: Acute Assessment and Plan: Currently in AFib. Rate is controlled She is not a candidate for anticoagulation due to history of GI bleed gastric ulcer and current GI bleed (2) Bradycardia: Code(s): R00.1 - Bradycardia, unspecified Status: Acute Assessment and Plan: Patient has slow AFib and had episode of bradycardia on the floor and was transferred to ICU. On review patient does have pause is 2-3 second duration Heart rate is lower when she is sleeping and improves as she is more awake. She was on dopamine initially which has been weaned off since yesterday afternoon Patient was evaluated by Cardiology. Cardiology recommends monitoring at this time patient may need pacemaker depending on how she does. Echocardiogram done in 08/2024 reviewed and showed EF of 65% with concentric left ventricle thickness and diastolic dysfunction. She also had mild aortic stenosis along with moderate pulmonary hypertension. At this time her blood pressure is stable. Monitor (3) Hyperlipidemia: Code(s): E78.5 - Hyperlipidemia, unspecified Status: Chronic Assessment and Plan: On atorvastatin (4) Upper GI bleed: Code(s): K92.2 - Gastrointestinal hemorrhage, unspecified Status: Acute Assessment and Plan: Patient has history of gastric ulcer and gastritis and now presented with complaints and hemoglobin level consistent with upper GI bleed CT abdomen pelvis negative for any perforation. IV Protonix q.12 hours Serial hemoglobin monitoring is being done and hemoglobin has been stable Patient was transfused 2 units of PRBC at the time of admission Patient is scheduled for EGD today (5) Upper abdominal pain: Code(s): R10.10 - Upper abdominal pain, unspecified Status: Acute Assessment and Plan: Epigastric pain with mild tenderness. Ill could be secondary to gastric ulcer. Normal lipase CT scan did not show any evidence off pancreatitis although it did show colitis. (6) ESRD (end stage renal disease) on dialysis: Code(s): N18.6 - End stage renal disease; Z99.2 - Dependence on renal dialysis Status: Chronic Assessment and Plan: Nephrology consulted for hemodialysis (7) Anemia: Code(s): D64.9 - Anemia, unspecified Status: Acute Assessment and Plan: Multifactorial anemia likely exacerbated with GI bleed. See above Request Nephrology to start Procrit (8) Colitis: Code(s): K52.9 - Noninfective gastroenteritis and colitis, unspecified Status: Inactive Assessment and Plan: CT abdomen pelvis suggestive of colitis. Continue empiric broad-spectrum antibiotics Unlikely to be ischemic as lactic acid level was normal although patient has significant peripheral arterial disease Plan DVT prophylaxis -SCD Stress ulcer prophylaxis -PPI Nutrition - NPO Code Status - Full Code Total Critical Care Time - 30 minutes Due to a high probability of clinically significant, life threatening deterioration, the patient required my highest level of preparedness to intervene emergently and I personally spent this critical care time directly and personally managing the patient. This critical care time included obtaining a history; examining the patient; pulse oximetry; ordering and review of studies; arranging urgent treatment with development of a management plan; evaluation of patient's response to treatment; frequent reassessment; and discussions with other providers. It was exclusive of separately billable procedures and treating other patients and teaching time. Please see Assessment and Plan section and the rest of the note for further information on patient assessment and treatment Subjective Date/time seen: 03/30/25 Patient states she has pain all over her body from her arthritis. She states her breathing is better. She denies any bowel movements or bleeding. No dizziness lightheadedness chest pain shortness a breath coughing. All other systems were reviewed and were negative. She continues to be in AFib but ventricular rate is controlled in 60s. Her blood pressure has been stable overnight. She has been off of dopamine infusion. She is on room air at 98% saturating. She is NPO for scheduled EGD this morning. Review of Systems Review of Systems: All systems reviewed & are unremarkable except as noted in HPI and below (HPI) Exam Narrative: General: Cachectic old female who looks frail and malnourished. Lungs/Chest: Trachea central Clear BS B/L, No crackles or wheezing. Cardiac: Irregular rate and rhythm. Normal S1 S2. No murmurs Circulation: Both dorsalis pedis are palpable weak. Feet are warm. Abdomen: Normal bowel sounds.. Soft. Mild tenderness to palpation in epigastric area Extremities: No clubbing, cyanosis or edema. 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 She has a wound on right big toe which is under dressing, she has a fistula in both arms left is nonfunctional. : NAD Neurologic: Follows commands. Moves all 4 extremities PERRL AO x3 Skin: No Rash Objective Data Vital Signs Vital Signs: Vital Signs - 24 hr 03/29/25 09:30 03/29/25 10:00 03/29/25 10:00 Temperature 36.6 C Pulse Rate 68 63 61 Respiratory Rate 19 Blood Pressure 112/48 L 109/54 L Pulse Oximetry 100 Oxygen Delivery Oxygen Flow Rate 03/29/25 10:00 03/29/25 11:00 03/29/25 11:00 Temperature Pulse Rate 61 59 L 57 L Respiratory Rate 25 H 19 Blood Pressure 109/54 L 84/37 L 116/42 L Pulse Oximetry 100 100 Oxygen Delivery Oxygen Flow Rate 03/29/25 12:00 03/29/25 12:00 03/29/25 12:00 Temperature Pulse Rate 71 66 Respiratory Rate 20 Blood Pressure 99/42 L Pulse Oximetry 100 100 Oxygen Delivery Nasal Cannula Oxygen Flow Rate 2 03/29/25 12:00 03/29/25 14:00 03/29/25 14:00 Temperature 36.2 C L Pulse Rate 66 60 62 Respiratory Rate 21 H Blood Pressure 99/42 L 98/39 L Pulse Oximetry 100 Oxygen Delivery Oxygen Flow Rate 03/29/25 14:00 03/29/25 16:00 03/29/25 16:00 Temperature Pulse Rate 62 59 L Respiratory Rate 23 H Blood Pressure 98/39 L 94/39 L Pulse Oximetry 100 100 Oxygen Delivery Nasal Cannula Oxygen Flow Rate 2 03/29/25 16:00 03/29/25 16:00 03/29/25 18:00 Temperature Pulse Rate 59 L 59 L 65 Respiratory Rate Blood Pressure 94/39 L Pulse Oximetry Oxygen Delivery Oxygen Flow Rate 03/29/25 18:00 03/29/25 18:00 03/29/25 20:00 Temperature 36.8 C Pulse Rate 65 67 89 Respiratory Rate 21 H 22 H Blood Pressure 99/73 L 99/73 L 146/74 H Pulse Oximetry 100 97 Oxygen Delivery Oxygen Flow Rate 03/29/25 20:00 03/29/25 20:00 03/29/25 20:00 Temperature Pulse Rate 53 L 63 Respiratory Rate Blood Pressure 108/39 L Pulse Oximetry 100 Oxygen Delivery Nasal Cannula Oxygen Flow Rate 2 03/29/25 22:00 03/29/25 22:00 03/29/25 22:00 Temperature Pulse Rate 63 63 64 Respiratory Rate 20 Blood Pressure 108/39 L 108/39 L Pulse Oximetry 100 Oxygen Delivery Oxygen Flow Rate 03/29/25 22:57 03/29/25 23:50 03/30/25 00:00 Temperature Pulse Rate 55 L Respiratory Rate Blood Pressure Pulse Oximetry 97 100 Oxygen Delivery Nasal Cannula Nasal Cannula Oxygen Flow Rate 2 2 03/30/25 00:00 03/30/25 00:00 03/30/25 02:00 Temperature 36.6 C Pulse Rate 55 L 55 L 58 L Respiratory Rate 18 Blood Pressure 101/85 101/85 Pulse Oximetry 96 Oxygen Delivery Oxygen Flow Rate 03/30/25 02:00 03/30/25 02:00 03/30/25 03:44 Temperature Pulse Rate 58 L 61 Respiratory Rate 18 Blood Pressure 125/55 L Pulse Oximetry 100 100 Oxygen Delivery Nasal Cannula Oxygen Flow Rate 2 03/30/25 04:00 03/30/25 04:00 03/30/25 04:00 Temperature 37.0 C Pulse Rate 70 70 53 L Respiratory Rate 23 H Blood Pressure 111/38 L Pulse Oximetry 100 Oxygen Delivery Oxygen Flow Rate 03/30/25 05:29 03/30/25 05:48 03/30/25 06:00 Temperature 36.5 C Pulse Rate 61 66 66 Respiratory Rate 19 Blood Pressure 115/42 L Pulse Oximetry 100 Oxygen Delivery Oxygen Flow Rate Intake/Output Intake/Output: Intake & Output 03/27/25 03/28/25 03/29/25 03/30/25 23:59 23:59 23:59 23:59 Intake Total 990 297.9 100 Output Total 0 0 Balance 990 297.9 100 Meds/Results Medications: Active Medications Generic Name Dose Route Start Last Admin Trade Name Freq PRN Reason Stop Dose Admin Acetaminophen 650 mg 03/28/25 14:00 03/29/25 18:52 Acetaminophen 325 Mg Tablet PO 650 mg Q4H PRN Administration Mild Pain (1-3) or Fever Atorvastatin Calcium 40 mg 03/28/25 18:00 03/29/25 17:07 Atorvastatin 40 Mg Tablet PO 40 mg QPM THERESE Administration Atropine Sulfate 0.4 mg 03/28/25 22:41 Atropine Sulfate 0.4 Mg/Ml Vial IV PUSH ONCE PRN Bradycardia Dextrose 12.5 gm 03/28/25 16:45 Dextrose 50% 25 Gm/50 Ml Syringe IV PUSH PRN PRN Hypoglycemia Protocol Diclofenac Sodium 1 applic 03/28/25 16:24 Diclofenac Sodium 1% 100 Gm Gel (*Bkc) TOPICAL QID PRN discomfort Epoetin Son-epbx 20,000 units 03/30/25 18:00 Epoetin Son-Epbx 20,000 Units/Ml Vial IV PUSH 03/30/25 18:01 ONCE ONE Glucagon 1 mg 03/28/25 16:45 Glucagon For Inj 1 Mg Vial IM PRN PRN Hypoglycemia Protocol Glucose 15 gm 03/28/25 16:45 Glucose Oral Gel 15 Gm Of Glucse In 37.5 Gm Tube PO PRN PRN Hypoglycemia Protocol Dextrose 1,000 mls @ 100 mls/hr 03/28/25 16:45 Dextrose 5% 1,000 Ml IVPB PRN PRN Hypoglycemia Protocol Dopamine HCl/Dextrose 400 mg in 250 mls @ 0 mls/hr 03/29/25 01:00 03/30/25 06:00 Dopamine 400 Mg/D5w 250 Ml IV CONT 0 mcg/kg/min .Q0M THERESE 0 mls/hr Protocol Titration Albumin Human 50 mls @ 999 mls/hr 03/30/25 01:36 Albutein IVPB 04/29/25 01:35 Q10M PRN HYPOTENSION Meropenem 500 mg/ Sodium 100 mls @ 200 mls/hr 03/30/25 21:00 Chloride IVPB QHS THERESE Insulin Aspart 2 - 5 units 03/28/25 17:00 03/29/25 16:40 Insulin Aspart (*Bkc) 100 Units/Ml SUB-Q Not Given TIDWM THERESE Protocol Insulin Glargine 8 units 03/28/25 21:00 03/29/25 20:45 Insulin Glargine (*Bkc) 100 Units/Ml 0.15 units/kg (8 units) Not Given SUB-Q HS THERESE Pantoprazole Sodium 40 mg 03/29/25 21:00 03/29/25 20:45 Pantoprazole Sodium Iv 40 Mg Vial IV PUSH 40 mg Q12HR THERESE Administration Polyethylene Glycol 17 gm 03/28/25 16:24 Polyethylene Glycol 3350 17 Gm Powd.Pack PO DAILY PRN Constipation Tobramycin Sulfate 1 drop 03/28/25 17:00 03/30/25 05:30 Tobramycin Sulfate 0.3% Ophth Soln 5 Ml EACH EYE 1 drop Q4HR THERESE Administration Vitamin B Complex/Folic Acid 1 cap 03/29/25 09:00 03/29/25 09:56 Vitamin B Cmplx/Vit C/Folic Ac 1 Capsule PO 1 cap DAILY THERESE Administration Radiology Results: ITS Impressions Abdomen/Pelvis CT 03/28/25 12:11 IMPRESSION: 1. Colitis. Likely infectious or inflammatory but given severe atherosclerotic disease, ischemic remains possible. Recommend correlation with lactate. Head CT 03/28/25 17:58 Impression: 1.No acute intracranial abnormality. Chest X-Ray 03/29/25 11:20 IMPRESSION: 1. Developing interstitial pulmonary edema. Labs Labs: Laboratory Results - last 24 hr 03/29/25 03/29/25 03/29/25 11:31 12:02 16:21 WBC 9.9 RBC 2.88 L Hgb 8.3 L Hct 27.5 L MCV 95.5 MCH 28.8 MCHC 30.2 L RDW 24.1 H Plt Count 176 MPV 10.4 Sodium Potassium Chloride Carbon Dioxide Anion Gap BUN Creatinine Estim Creat Clear Calc Estimated GFR Glucose POC Capillary Glucose 137 H 100 Calcium Phosphorus Magnesium Total Bilirubin AST ALT Alkaline Phosphatase Total Protein Albumin Lipase 61 Hep Bs Antigen Hep Bs Antibody 03/29/25 03/29/25 03/30/25 18:51 19:53 00:38 WBC 7.3 6.3 RBC 2.76 L 2.53 L Hgb 7.9 L 7.2 L Hct 26.5 L 23.9 L MCV 96.0 94.5 MCH 28.6 28.5 MCHC 29.8 L 30.1 L RDW 24.0 H 23.8 H Plt Count 167 160 MPV 10.3 10.5 H Sodium Potassium Chloride Carbon Dioxide Anion Gap BUN Creatinine Estim Creat Clear Calc Estimated GFR Glucose POC Capillary Glucose 99 Calcium Phosphorus Magnesium Total Bilirubin AST ALT Alkaline Phosphatase Total Protein Albumin Lipase Hep Bs Antigen Hep Bs Antibody 03/30/25 05:11 WBC 6.9 RBC 2.68 L Hgb 7.8 L Hct 25.9 L MCV 96.6 MCH 29.1 MCHC 30.1 L RDW 23.8 H Plt Count 174 MPV 10.8 H Sodium 131 L Potassium 4.3 Chloride 95 L Carbon Dioxide 26 Anion Gap 10 BUN 58 H Creatinine 5.52 H Estim Creat Clear Calc Not Reportable Estimated GFR 7 L Glucose 82 POC Capillary Glucose Calcium 8.4 Phosphorus 5.6 H Magnesium 2.0 Total Bilirubin 0.6 AST 26 ALT 17 Alkaline Phosphatase 121 Total Protein 5.5 L Albumin 3.2 L Lipase Hep Bs Antigen Negative Hep Bs Antibody Negative Quality VTE Prophylaxis VTE prophylaxis: mechanical ordered
[2025-03-30] MEDS: ACETAMINOPHEN 325 MG TABLET 650 MG PO ×2 (09:04→20:01)
[2025-03-30] MEDS: VITAMIN B CMPLX/VIT C/FOLIC AC 1 CAPSULE 1 CAP PO (09:04)
[2025-03-30] MEDS: PANTOPRAZOLE SODIUM IV 40 MG VIAL IV PUSH ×2 (09:04→19:59)
--- NOTE | 2025-03-30 09:51 | PM.PNCARD ---
Progress Note: A&P Assessment and Plan (1) Paroxysmal atrial fibrillation: Code(s): I48.0 - Paroxysmal atrial fibrillation Status: Acute (2) Bradycardia: Code(s): R00.1 - Bradycardia, unspecified Status: Acute (3) Peripheral arterial disease: Code(s): I73.9 - Peripheral vascular disease, unspecified Status: Acute (4) Hyperlipidemia: Code(s): E78.5 - Hyperlipidemia, unspecified Status: Chronic (5) Hypertension: Qualifiers: Hypertension type: unspecified Qualified Code(s): I10 - Essential (primary) hypertension Code(s): I10 - Essential (primary) hypertension Status: Chronic (6) Severe claudication: Code(s): I73.9 - Peripheral vascular disease, unspecified Status: Acute (7) CAD (coronary artery disease): Code(s): I25.10 - Atherosclerotic heart disease of [place] coronary artery without angina pectoris Status: Acute (8) Elevated troponin: Code(s): R79.89 - Other specified abnormal findings of blood chemistry Status: Acute Plan Problem list: Bradycardia-resolved Paroxysmal atrial fibrillation status post left atrial appendage occlusion at [facility] in 2018 Nonobstructive CAD-no chest pain; TTE in 08/2024 showed normal LVEF of 65%, mild AF, mild MR, mild TR, trace VT, moderate pulmonary hypertension (PASP 50 mm Hg) Elevated troponin- no chest pain; most likely secondary to demand supply mismatch due to acute anemia Hypertension-controlled Hyperlipidemia-on statin Acute GI bleed status post PRBC transfusion- GI following; hemoglobin 7.8 today Peripheral vascular disease status post recent PTCA at [facility]-on aspirin and Plavix at presentation which are held due to acute GI bleed; have claudication and nonhealing ulcer of right toe End-stage renal disease on dialysis Plan: Continue to monitor on telemetry. Rates are controlled in the 50s to 70s range. She is status post left atrial appendage occlusion and therefore no anticoagulation required Troponin was mildly elevated and mostly flat. She has no chest pain. Troponin elevation is most likely supply demand mismatch due to acute severe anemia. Can stop checking since troponin peaked and down trending EKG p.r.n. for any chest pain Hold all antiplatelet meds including aspirin and Plavix given acute GI bleed. GI planning EGD today. She is on IV PPI Continue statin Start Voltaren cream for pain in the right foot Management of other medical problems per primary team Plan discussed with ICU attending Subjective Date/time seen: 03/30/25 09:51 Interval history: Reason for encounter: Bradycardia, paroxysmal atrial fibrillation Relevant history: 79-year-old female with CAD, chronic atrial fibrillation status post left atrial appendage occlusion at [place] in 2019, hypertension, diabetes, end-stage renal disease on HD, peptic ulcer disease with bleeding gastric ulcers in the past, PVD, nonhealing ulcer on her right toe status post recent PTCA to right lower extremity at [facility] was admitted with dark stools secondary to GI bleed. She was noted to have a hemoglobin of 5.9 at presentation and received 2 units PRBCs with improvement in hemoglobin to 7.8. She was reportedly bradycardic to the 40s and Cardiology was consulted for further recommendations. Interval history: Patient reports pain in her right foot and heel of intensity 9/10. She says she uses Voltaren cream at home for pain. No chest pain, shortness of breath, dizziness. Telemetry shows paroxysmal atrial fibrillation with rates in the 50s to 70s. Review of Systems Cardiovascular: Comments: As per HPI Respiratory: Comments: As per HPI Exam Narrative: General: Alert oriented x3, no acute distress Neck: Supple, no JVD Chest: Bilaterally clear to auscultation, no rales or rhonchi Cardiac: S1, S2 +, irregularly irregular rhythm, no murmurs or rubs Extremities: No pedal edema, no skin rash Neurologic: Alert and oriented x3, no focal neurological deficits Objective Data Vital Signs Vital Signs: Vital Signs - 24 hr 03/29/25 10:00 03/29/25 10:03/29/25 10:00 Temperature 36.6 C Pulse Rate 63 61 61 Respiratory Rate 19 Blood Pressure 109/54 L 109/54 L Pulse Oximetry 100 Oxygen Delivery Oxygen Flow Rate 03/29/25 11:00 03/29/25 11:00 03/29/25 12:00 Temperature Pulse Rate 59 L 57 L 71 Respiratory Rate 25 H 19 Blood Pressure 84/37 L 116/42 L Pulse Oximetry 100 100 Oxygen Delivery Oxygen Flow Rate 03/29/25 12:00 03/29/25 12:00 03/29/25 12:00 Temperature Pulse Rate 66 66 Respiratory Rate 20 Blood Pressure 99/42 L 99/42 L Pulse Oximetry 100 100 Oxygen Delivery Nasal Cannula Oxygen Flow Rate 2 03/29/25 14:00 03/29/25 14:00 03/29/25 14:00 Temperature 36.2 C L Pulse Rate 60 62 62 Respiratory Rate 21 H Blood Pressure 98/39 L 98/39 L Pulse Oximetry 100 Oxygen Delivery Oxygen Flow Rate 03/29/25 16:00 03/29/25 16:00 03/29/25 16:00 Temperature Pulse Rate 59 L 59 L Respiratory Rate 23 H Blood Pressure 94/39 L Pulse Oximetry 100 100 Oxygen Delivery Nasal Cannula Oxygen Flow Rate 2 03/29/25 16:00 03/29/25 18:00 03/29/25 18:00 Temperature Pulse Rate 59 L 65 65 Respiratory Rate 21 H Blood Pressure 94/39 L 99/73 L Pulse Oximetry 100 Oxygen Delivery Oxygen Flow Rate 03/29/25 18:00 03/29/25 20:00 03/29/25 20:00 Temperature 36.8 C Pulse Rate 67 89 Respiratory Rate 22 H Blood Pressure 99/73 L 146/74 H Pulse Oximetry 97 100 Oxygen Delivery Nasal Cannula Oxygen Flow Rate 2 03/29/25 20:00 03/29/25 20:00 03/29/25 22:00 Temperature Pulse Rate 53 L 63 63 Respiratory Rate Blood Pressure 108/39 L Pulse Oximetry Oxygen Delivery Oxygen Flow Rate 03/29/25 22:00 03/29/25 22:00 03/29/25 22:57 Temperature Pulse Rate 63 64 Respiratory Rate 20 Blood Pressure 108/39 L 108/39 L Pulse Oximetry 100 97 Oxygen Delivery Nasal Cannula Oxygen Flow Rate 2 03/29/25 23:50 03/30/25 00:00 03/30/25 00:00 Temperature 36.6 C Pulse Rate 55 L 55 L Respiratory Rate 18 Blood Pressure 101/85 Pulse Oximetry 100 96 Oxygen Delivery Nasal Cannula Oxygen Flow Rate 2 03/30/25 00:00 03/30/25 02:00 03/30/25 02:00 Temperature Pulse Rate 55 L 58 L 58 L Respiratory Rate 18 Blood Pressure 101/85 125/55 L Pulse Oximetry 100 Oxygen Delivery Oxygen Flow Rate 03/30/25 02:00 03/30/25 03:44 03/30/25 04:00 Temperature Pulse Rate 61 70 Respiratory Rate Blood Pressure Pulse Oximetry 100 Oxygen Delivery Nasal Cannula Oxygen Flow Rate 2 03/30/25 04:00 03/30/25 04:00 03/30/25 05:29 Temperature 37.0 C Pulse Rate 70 53 L 61 Respiratory Rate 23 H Blood Pressure 111/38 L Pulse Oximetry 100 Oxygen Delivery Oxygen Flow Rate 03/30/25 05:48 03/30/25 06:00 03/30/25 08:00 Temperature 36.5 C Pulse Rate 66 66 Respiratory Rate 19 Blood Pressure 115/42 L Pulse Oximetry 100 100 Oxygen Delivery Nasal Cannula Oxygen Flow Rate 2 03/30/25 09:09 Temperature Pulse Rate Respiratory Rate Blood Pressure Pulse Oximetry 97 Oxygen Delivery Room Air Oxygen Flow Rate Intake/Output Intake/Output: Intake & Output 03/27/25 03/28/25 03/29/25 03/30/25 23:59 23:59 23:59 23:59 Intake Total 990 297.9 100 Output Total 0 0 Balance 990 297.9 100 Meds/Results Medications: Active Medications Generic Name Dose Route Start Last Admin Trade Name Freq PRN Reason Stop Dose Admin Acetaminophen 650 mg 03/28/25 14:00 03/30/25 09:04 Acetaminophen 325 Mg Tablet PO 650 mg Q4H PRN Administration Mild Pain (1-3) or Fever Atorvastatin Calcium 40 mg 03/28/25 18:00 03/29/25 17:07 Atorvastatin 40 Mg Tablet PO 40 mg QPM THERESE Administration Atropine Sulfate 0.4 mg 03/28/25 22:41 Atropine Sulfate 0.4 Mg/Ml Vial IV PUSH ONCE PRN Bradycardia Dextrose 12.5 gm 03/28/25 16:45 Dextrose 50% 25 Gm/50 Ml Syringe IV PUSH PRN PRN Hypoglycemia Protocol Diclofenac Sodium 1 applic 03/28/25 16:24 Diclofenac Sodium 1% 100 Gm Gel (*Bkc) TOPICAL QID PRN discomfort Epoetin Son-epbx 20,000 units 03/30/25 18:00 Epoetin Son-Epbx 20,000 Units/Ml Vial IV PUSH 03/30/25 18:01 ONCE ONE Glucagon 1 mg 03/28/25 16:45 Glucagon For Inj 1 Mg Vial IM PRN PRN Hypoglycemia Protocol Glucose 15 gm 03/28/25 16:45 Glucose Oral Gel 15 Gm Of Glucse In 37.5 Gm Tube PO PRN PRN Hypoglycemia Protocol Dextrose 1,000 mls @ 100 mls/hr 03/28/25 16:45 Dextrose 5% 1,000 Ml IVPB PRN PRN Hypoglycemia Protocol Dopamine HCl/Dextrose 400 mg in 250 mls @ 0 mls/hr 03/29/25 01:00 03/30/25 06:00 Dopamine 400 Mg/D5w 250 Ml IV CONT 0 mcg/kg/min .Q0M THERESE 0 mls/hr Protocol Titration Albumin Human 50 mls @ 999 mls/hr 03/30/25 01:36 Albutein IVPB 04/29/25 01:35 Q10M PRN HYPOTENSION Meropenem 500 mg/ Sodium 100 mls @ 200 mls/hr 03/30/25 21:00 Chloride IVPB QHS THERESE Insulin Aspart 2 - 5 units 03/28/25 17:00 03/29/25 16:40 Insulin Aspart (*Bkc) 100 Units/Ml SUB-Q Not Given TIDWM THERESE Protocol Insulin Glargine 8 units 03/28/25 21:00 03/29/25 20:45 Insulin Glargine (*Bkc) 100 Units/Ml 0.15 units/kg (8 units) Not Given SUB-Q HS [facility] Pantoprazole Sodium 40 mg 03/29/25 21:00 03/30/25 09:04 Pantoprazole Sodium Iv 40 Mg Vial IV PUSH 40 mg Q12HR THERESE Administration Polyethylene Glycol 17 gm 03/28/25 16:24 Polyethylene Glycol 3350 17 Gm Powd.Pack PO DAILY PRN Constipation Tobramycin Sulfate 1 drop 03/28/25 17:00 03/30/25 09:04 Tobramycin Sulfate 0.3% Ophth Soln 5 Ml EACH EYE 1 drop Q4HR THERESE Administration Vitamin B Complex/Folic Acid 1 cap 03/29/25 09:00 03/30/25 09:04 Vitamin B Cmplx/Vit C/Folic Ac 1 Capsule PO 1 cap DAILY THERESE Administration Radiology Results: ITS Impressions Abdomen/Pelvis CT 03/28/25 12:11 IMPRESSION: 1. Colitis. Likely infectious or inflammatory but given severe atherosclerotic disease, ischemic remains possible. Recommend correlation with lactate. Head CT 03/28/25 17:58 Impression: 1.No acute intracranial abnormality. Chest X-Ray 03/29/25 11:20 IMPRESSION: 1. Developing interstitial pulmonary edema. Labs Labs: Laboratory Results - last 24 hr 03/29/25 03/29/25 03/29/25 11:31 12:02 16:21 WBC 9.9 RBC 2.88 L Hgb 8.3 L Hct 27.5 L MCV 95.5 MCH 28.8 MCHC 30.2 L RDW 24.1 H Plt Count 176 MPV 10.4 Sodium Potassium Chloride Carbon Dioxide Anion Gap BUN Creatinine Estim Creat Clear Calc Estimated GFR Glucose POC Capillary Glucose 137 H 100 Calcium Phosphorus Magnesium Total Bilirubin AST ALT Alkaline Phosphatase Total Protein Albumin Lipase 61 Hep Bs Antigen Hep Bs Antibody 03/29/25 03/29/25 03/30/25 18:51 19:53 00:38 WBC 7.3 6.3 RBC 2.76 L 2.53 L Hgb 7.9 L 7.2 L Hct 26.5 L 23.9 L MCV 96.0 94.5 MCH 28.6 28.5 MCHC 29.8 L 30.1 L RDW 24.0 H 23.8 H Plt Count 167 160 MPV 10.3 10.5 H Sodium Potassium Chloride Carbon Dioxide Anion Gap BUN Creatinine Estim Creat Clear Calc Estimated GFR Glucose POC Capillary Glucose 99 Calcium Phosphorus Magnesium Total Bilirubin AST ALT Alkaline Phosphatase Total Protein Albumin Lipase Hep Bs Antigen Hep Bs Antibody 03/30/25 05:11 WBC 6.9 RBC 2.68 L Hgb 7.8 L Hct 25.9 L MCV 96.6 MCH 29.1 MCHC 30.1 L RDW 23.8 H Plt Count 174 MPV 10.8 H Sodium 131 L Potassium 4.3 Chloride 95 L Carbon Dioxide 26 Anion Gap 10 BUN 58 H Creatinine 5.52 H Estim Creat Clear Calc Not Reportable Estimated GFR 7 L Glucose 82 POC Capillary Glucose Calcium 8.4 Phosphorus 5.6 H Magnesium 2.0 Total Bilirubin 0.6 AST 26 ALT 17 Alkaline Phosphatase 121 Total Protein 5.5 L Albumin 3.2 L Lipase Hep Bs Antigen Negative Hep Bs Antibody Negative
--- NOTE | 2025-03-30 10:45 | WPDANESEPPF ---
Anes - Initial Pre Proc Eval Procedure: Operation Date: 03/30/25 16:15 Proposed Procedures p Esophagogastroduodenoscopy - Leonard Lerma MD Date/Time: 03/30/25 10:45 Surgeon: Yusra Vega MD Pre Op Diagnosis: Gi Bleed, anemia, hemodialysis patient Patient Data Age: 79 Gender: F Height: 1.42 m Weight: 50.5 kg Last Vital Signs Temp 97.7 F 03/30/25 05:48 Pulse 55 L 03/30/25 08:00 Resp 19 03/30/25 05:48 BP 115/42 L 03/30/25 05:48 Pulse Ox 97 03/30/25 09:09 O2 Del Method Room Air 03/30/25 09:09 O2 Flow Rate 2 03/30/25 08:00 FiO2 30 03/29/25 00:00 Allergies Allergy/AdvReac Type Severity Reaction Status Date / Time cephalexin Allergy Mild Rash Verified 03/28/25 16:10 enalapril Allergy Unknown cough Verified 03/28/25 16:10 pioglitazone Allergy Unknown sneezing Verified 03/28/25 16:10 cefazolin AdvReac Mild nausea/dizz Verified 03/28/25 16:10 iness tramadol AdvReac Unknown hallucinati Verified 03/28/25 16:10 ons gabapentin AdvReac Hallucinati Verified 03/28/25 16:10 ng Home Medications ?Medication ?Instructions ?Recorded ?Confirmed ?Type acetaminophen 500 mg tablet See Rx Instructions PO Q4H PRN Pain 02/20/20 03/28/25 History (Acetaminophen Extra Strength) blood sugar diagnostic #500 ea 07/18/21 03/30/25 Rx atorvastatin 40 mg tablet 40 mg PO QPM 10/25/21 03/28/25 History vitamin B complex and vitamin C 1 cap PO DAILY 10/25/21 03/28/25 History no.20-folic acid 1 mg capsule (Renal Caps) hortencia strickland #1 ea 01/11/23 03/30/25 Rx liraglutide 0.6 mg/0.1 mL (18 mg/3 1.2 mg subcut HS 06/06/23 03/28/25 History mL) subcutaneous pen injector (Victoza 2-Agustín) Assited gait device #1 ea 08/23/23 03/30/25 Rx clotrimazole 1 % topical cream 1 applic topical Q12H 09/27/23 03/28/25 History (Antifungal (clotrimazole)) dicyclomine 10 mg capsule See Rx Instructions .Route 02/12/24 03/28/25 Rx .COMPLEX #60 caps biotin 5 mg capsule 5 mg PO QPM 10/08/24 03/28/25 History blood sugar diagnostic #500 ea 10/14/24 03/30/25 Rx tenofovir alafenamide 25 mg tablet 25 mg PO DAILY #90 tabs 10/16/24 03/28/25 Rx trazodone 50 mg tablet 100 mg (2 x 50 mg) PO QHS #180 tabs 12/31/24 03/28/25 Rx rollator #1 ea 01/01/25 03/30/25 Rx denosumab 60 mg/mL subcutaneous 60 mg subcut [id number] #1 mL 01/05/25 03/28/25 Rx syringe (Prolia) pantoprazole 40 mg tablet,delayed 40 mg PO Q12HR #60 tabs 01/20/25 03/28/25 Rx release pen needle, diabetic 32 gauge x #100 ea 01/20/25 03/30/25 Rx /32 insulin degludec 100 unit/mL (3 10 unit (0.1 mL) subcut HS #15 mL 02/03/25 03/28/25 Rx mL) subcutaneous pen (Tresiba FlexTouch U-100 insulin) diclofenac sodium 1 % topical gel 2 g topical QID PRN discomfort 02/12/25 03/28/25 History (Arthritis Pain (diclofenac)) polyethylene glycol 3350 17 17 g PO DAILY PRN constipation 7 02/14/25 03/28/25 Rx gram/dose oral powder (Miralax) days #119 grams quetiapine 25 mg tablet (Seroquel) 25 mg PO HS 7 days #7 tabs 02/15/25 03/28/25 Rx tobramycin 0.3 % eye drops 1 drp EACH EYE Q4H #5 mL 02/18/25 03/28/25 Rx sitagliptin phosphate 100 mg 100 mg PO BID 03/28/25 03/28/25 History tablet (Januvia) Laboratory Tests 09/21/25 09/21/25 09/21/25 11:31 12:02 16:21 WBC 9.9 K/mm3 (4.5-10.0) RBC 2.88 L M/mm3 (4.2-5.4) Hgb 8.3 L g/dL (12.0-15.0) Hct 27.5 L % (37.0-47.0) MCV 95.5 fl (80-100) MCH 28.8 pg (26-34) MCHC 30.2 L g/dl (32-36) RDW 24.1 H % (11.5-14.5) Plt Count 176 k/mm3 (150-375) MPV 10.4 fl (7.4-10.4) Sodium Potassium Chloride Carbon Dioxide Anion Gap BUN Creatinine Estim Creat Clear Calc Estimated GFR Glucose POC Capillary Glucose 137 H mg/dl 100 mg/dl (65-105) (65-105) Calcium Phosphorus Magnesium Total Bilirubin AST ALT Alkaline Phosphatase Total Protein Albumin Lipase 61 U/L (23-300) Hep Bs Antigen Hep Bs Antibody 03/29/25 03/29/25 03/30/25 18:51 19:53 00:38 WBC 7.3 K/mm3 6.3 K/mm3 (4.5-10.0) (4.5-10.0) RBC 2.76 L M/mm3 2.53 L M/mm3 (4.2-5.4) (4.2-5.4) Hgb 7.9 L g/dL 7.2 L g/dL (12.0-15.0) (12.0-15.0) Hct 26.5 L % 23.9 L % (37.0-47.0) (37.0-47.0) MCV 96.0 fl 94.5 fl (80-100) (80-100) MCH 28.6 pg 28.5 pg (26-34) (26-34) MCHC 29.8 L g/dl 30.1 L g/dl (32-36) (32-36) RDW 24.0 H % 23.8 H % (11.5-14.5) (11.5-14.5) Plt Count 167 k/mm3 160 k/mm3 (150-375) (150-375) MPV 10.3 fl 10.5 H fl (7.4-10.4) (7.4-10.4) Sodium Potassium Chloride Carbon Dioxide Anion Gap BUN Creatinine Estim Creat Clear Calc Estimated GFR Glucose POC Capillary Glucose 99 mg/dl (65-105) Calcium Phosphorus Magnesium Total Bilirubin AST ALT Alkaline Phosphatase Total Protein Albumin Lipase Hep Bs Antigen Hep Bs Antibody 03/30/25 03/30/25 03/30/25 05:11 09:07 10:41 WBC 6.9 K/mm3 (4.5-10.0) RBC 2.68 L M/mm3 (4.2-5.4) Hgb 7.8 L g/dL (12.0-15.0) Hct 25.9 L % (37.0-47.0) MCV 96.6 fl (80-100) MCH 29.1 pg (26-34) MCHC 30.1 L g/dl (32-36) RDW 23.8 H % (11.5-14.5) Plt Count 174 k/mm3 (150-375) MPV 10.8 H fl (7.4-10.4) Sodium 131 L mmol/L (137-145) Potassium 4.3 mmol/L (3.4-5.0) Chloride 95 L mmol/L (98-107) Carbon Dioxide 26 mmol/L (22-30) Anion Gap 10 mmol/L (4-12) BUN 58 H mg/dL (7-17) Creatinine 5.52 H mg/dL (0.7-1.0) Estim Creat Clear Calc Not Reportable Estimated GFR 7 L (59 - ) Glucose 82 mg/dL (65-110) POC Capillary Glucose 77 mg/dl 67 mg/dl (65-105) (65-105) Calcium 8.4 mg/dL (8.4-10.2) Phosphorus 5.6 H mg/dL (2.5-4.5) Magnesium 2.0 mg/dL (1.6-2.3) Total Bilirubin 0.6 mg/dL (0.2-1.3) AST 26 U/L (14-36) ALT 17 U/L (6-35) Alkaline Phosphatase 121 U/L (38-126) Total Protein 5.5 L g/dL (6.3-8.2) Albumin 3.2 L g/dL (3.5-5.1) Lipase Hep Bs Antigen Negative (Negative) Hep Bs Antibody Negative Patient hx anesthesia problems: none Family hx anesthesia problems: none Results Review: All pre-operative results and documents have been reviewed as part of the pre-operative evaluation. 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 Spinal stenosis at L4-L5 level High-grade central canal stenosis noted on MRI February 2017 Pulmonary hypertension Echocardiogram August 2019: EF 65-70 %, indeterminate left ventricular diastolic function, mild biatrial enlargement, mild mitral valve regurgitation, moderate tricuspid regurgitation, mild pulmonary hypertension with RVSP of 39 Hiatal hernia Thoracic ascending aortic aneurysm 4.[address] scan from August 2019 Anemia of chronic disease Megaloblastic anemia Paroxysmal atrial fibrillation Type 2 diabetes mellitus Hemoglobin A1c was 6.6 in July 2019. Hypertension Osteoporosis Hyperlipidemia AV fistula Left upper extremity End stage renal disease on dialysis Dialysis days are Sunday, Sunday, and Sunday. She is on the transplant list at [facility]. Osteoarthritis of both knees Staphylococcal septicemia (~2013) Closed fracture of lateral portion of right tibial plateau (~2014) Surgical History Surgical History Amputated toe of left foot History of bilateral cataract extraction Amputation at midfoot 5th digit right footAnd the great toe on the left History of arthroplasty of right ankle Presence of Watchman left atrial appendage closure device History of arthroscopy (~12/07/12) wrist History of colonoscopy (~12/02/15) History of knee replacement (~2015) right Family History Family History Father Hypertension Heart disease Mother Diabetes mellitus Hypertension Tobacco dependence Lung cancer Sibling Heart disease Social History Social History Social History: The patient is and lives in [place]. She is originally from [place]. 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 She has 2 daughters who live in [place]. She has 1 son who lives in [facility] . She designates her daughters as her surrogate decision makers. She is a lifelong nonsmoker. No alcohol or drug abuse. Primary care physician: Dr. David Coppola Code status: Full code Smoking status: Never smoker Second hand tobacco smoke exposure: No Alcohol intake: never Substance use: never Substance use type: does not use Do You Feel Safe in your Home?: Yes Lack of Transportation: No Lack of Food: Never True Current Housing: I Have Housing Concerned About Future Housing: No Difficulty Paying Gas/Electric Bills: No Difficulty Paying for Meds: No Currently Unemployed: No Education: Don't Know Difficulty w/ Childcare or Family Care: No Gender identity (if verbalized by the patient): Female Spiritual care concerns: No Agree to blood products: Yes Anes - Eval Final PreProcedure Day of Procedure 03/30/25 10:45 Patient weight: normal and thin Lungs: normal air movement Airway: Mallampati scale class II and special considerations (Teeth in poor condition. ) Neurological: alert and oriented Last oral intake: >/= 8 hours ASA classification: IV Emergent: no Anesthetic plan: proceed Anesthesia type and monitoring: general and standard monitoring Results Review: All pre-operative results and documents have been reviewed as part of the pre-operative evaluation. Complicated hx reviewed. Pt w GI bleed s/p transfusion of 2 U PRBCs, now for EGD. Pt had HD most recently 2 days ago. Cardiology note reviewed and appreciated. Informed Consent: The patient's anesthetic plan and its attendant risks and benefits were discussed with the patient/family/POA. Questions were solicited and answers provided to the satisfaction of the patient/family/POA.
[2025-03-30] MEDS: DEXTROSE 50% 25 GM/50 ML SYRINGE IV PUSH (10:53)
[2025-03-30] MEDS: SODIUM CHLORIDE 0.9% IV 500 ML 150 ML IV CONT (11:22)
--- NOTE | 2025-03-30 11:47 | PCNEURO ---
Entered room to attempt EEG. Pt is not in room.
[2025-03-30] MEDS: LIDOCAINE/PRILOCAINE CREAM 2.5-2.5% TUBE 1 EACH (14:09)
--- NOTE | 2025-03-30 14:54 | P.PNIM_ITS ---
Progress Note: A&P Assessment and Plan (1) Hypertension: Qualifiers: Hypertension type: unspecified Qualified Code(s): I10 - Essential (primary) hypertension Code(s): I10 - Essential (primary) hypertension Status: Chronic (2) Paroxysmal atrial fibrillation: Code(s): I48.0 - Paroxysmal atrial fibrillation Status: Acute (3) Bradycardia: Code(s): R00.1 - Bradycardia, unspecified Status: Acute (4) AV fistula: Code(s): I77.0 - Arteriovenous fistula, acquired Status: Acute (5) Peripheral arterial disease: Code(s): I73.9 - Peripheral vascular disease, unspecified Status: Acute (6) Type 2 diabetes mellitus: Qualifiers: Diabetes mellitus retirement insulin use: without ferry terminal agent use Diabetes mellitus complication status: without complication Qualified Code(s): E11.9 - Type 2 diabetes mellitus without complications Code(s): E11.9 - Type 2 diabetes mellitus without complications Status: Chronic (7) History of gastritis: Code(s): Z87.19 - Personal history of other diseases of the digestive system Status: Acute (8) Upper abdominal pain: Code(s): R10.10 - Upper abdominal pain, unspecified Status: Acute (9) End stage renal disease on dialysis: Code(s): N18.6 - End stage renal disease; Z99.2 - Dependence on renal dialysis Status: Chronic Plan 79 year female diabetes, osteoporosis, hyperlipidemia, end-stage renal disease on HD and insomnia presents the hospital with shortness of breath. Patient states that she had a right lower extremity vascular surgery about 10 days ago over at [facility] and has been having shortness of breath since then. She also complains of blood in the stool right lower a abdominal pain. She is taking Plavix and aspirin. (1) Paroxysmal atrial fibrillation with slow ventricular response Currently in AFib. She is not a candidate for anticoagulation due to history of GI bleed gastric ulcer and current GI bleed Patient has slow AFib and had episode of bradycardia on the floor and was transferred to ICU. On review patient was found to have pause is 2-3 second duration Heart rate is lower when she is sleeping and improves as she is more awake. She was on dopamine initially which has been weaned off Patient was evaluated by Cardiology. Cardiology recommends monitoring at this time patient may need pacemaker depending on how she does. Echocardiogram done in 08/2024 reviewed and showed EF of 65% with concentric left ventricle thickness and diastolic dysfunction. She also had mild aortic stenosis along with moderate pulmonary hypertension. (2) Hyperlipidemia: On atorvastatin (3) Upper GI bleed: Patient has history of gastric ulcer and gastritis and now presented with complaints and hemoglobin level consistent with upper GI bleed CT abdomen pelvis negative for any perforation. Continue with PPI Status post 2 units of PRBC Plan for EGD today ? Possible colitis on CT (4) ESRD (end stage renal disease) on dialysis: Nephrology consulted for hemodialysis (5) Colitis: CT abdomen pelvis suggestive of colitis. Continue with meropenem Unlikely to be ischemic as lactic acid level was normal although patient has significant peripheral arterial disease 6. DVT prophylaxis -SCD 7. Code Status - Full Code 8. Disposition: Pending improvement Time Spent With Patient Time: 36 mins Subjective Date/time seen: 03/30/25 14:54 Interval history: No acute events overnight Review of Systems Review of Systems: All systems reviewed & are unremarkable except as noted in HPI and below Exam Narrative: General: Cachectic . Lungs/Chest: Bilateral clear to auscultation Cardiac: Irregular rate and rhythm. Normal S1 S2. Circulation: Both dorsalis pedis are palpable weak. Feet are warm. Abdomen: Normal bowel sounds.. Soft. Mild tenderness to palpation in epigastric area Extremities: No edema. 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 She has a wound on right big toe which is under dressing, she has a fistula in both arms left is nonfunctional. : NAD Neurologic: Follows commands. Moves all 4 extremities PERRL AO x3 Skin: No Rash Objective Data Vital Signs Vital Signs: Vital Signs - 24 hr 03/29/25 16:00 03/29/25 16:00 03/29/25 16:00 Temperature Pulse Rate 59 L 59 L Respiratory Rate 23 H Blood Pressure 94/39 L Pulse Oximetry 100 100 Oxygen Delivery Nasal Cannula Oxygen Flow Rate 2 03/29/25 16:00 03/29/25 18:00 03/29/25 18:00 Temperature Pulse Rate 59 L 65 65 Respiratory Rate 21 H Blood Pressure 94/39 L 99/73 L Pulse Oximetry 100 Oxygen Delivery Oxygen Flow Rate 03/29/25 18:00 03/29/25 20:00 03/29/25 20:00 Temperature 98.2 F Pulse Rate 67 89 Respiratory Rate 22 H Blood Pressure 99/73 L 146/74 H Pulse Oximetry 97 100 Oxygen Delivery Nasal Cannula Oxygen Flow Rate 2 03/29/25 20:00 03/29/25 20:00 03/29/25 22:00 Temperature Pulse Rate 53 L 63 63 Respiratory Rate Blood Pressure 108/39 L Pulse Oximetry Oxygen Delivery Oxygen Flow Rate 03/29/25 22:00 03/29/25 22:00 03/29/25 22:57 Temperature Pulse Rate 63 64 Respiratory Rate 20 Blood Pressure 108/39 L 108/39 L Pulse Oximetry 100 97 Oxygen Delivery Nasal Cannula Oxygen Flow Rate 2 03/29/25 23:50 03/30/25 00:00 03/30/25 00:00 Temperature 98 F Pulse Rate 55 L 55 L Respiratory Rate 18 Blood Pressure 101/85 Pulse Oximetry 100 96 Oxygen Delivery Nasal Cannula Oxygen Flow Rate 2 03/30/25 00:00 03/30/25 02:00 03/30/25 02:00 Temperature Pulse Rate 55 L 58 L 58 L Respiratory Rate 18 Blood Pressure 101/85 125/55 L Pulse Oximetry 100 Oxygen Delivery Oxygen Flow Rate 03/30/25 02:00 03/30/25 03:44 03/30/25 04:00 Temperature Pulse Rate 61 70 Respiratory Rate Blood Pressure Pulse Oximetry 100 Oxygen Delivery Nasal Cannula Oxygen Flow Rate 2 03/30/25 04:00 03/30/25 04:00 03/30/25 05:29 Temperature 98.6 F Pulse Rate 70 53 L 61 Respiratory Rate 23 H Blood Pressure 111/38 L Pulse Oximetry 100 Oxygen Delivery Oxygen Flow Rate 03/30/25 05:48 03/30/25 06:00 03/30/25 08:00 Temperature 97.7 F Pulse Rate 66 66 Respiratory Rate 19 Blood Pressure 115/42 L Pulse Oximetry 100 100 Oxygen Delivery Nasal Cannula Oxygen Flow Rate 2 03/30/25 08:00 03/30/25 09:09 03/30/25 10:00 Temperature Pulse Rate 55 L 64 Respiratory Rate Blood Pressure Pulse Oximetry 97 Oxygen Delivery Room Air Oxygen Flow Rate 03/30/25 11:22 03/30/25 11:31 03/30/25 11:41 Temperature 98.2 F Pulse Rate 65 64 64 Respiratory Rate 28 H 28 H 27 H Blood Pressure 110/41 L 102/40 L 111/37 L Pulse Oximetry 100 100 100 Oxygen Delivery Nasal Cannula Nasal Cannula Nasal Cannula Oxygen Flow Rate 2 2 2 09/22/25 11:51 Temperature Pulse Rate 55 L Respiratory Rate 24 H Blood Pressure 115/85 Pulse Oximetry 100 Oxygen Delivery Nasal Cannula Oxygen Flow Rate 2 Intake/Output Intake/Output: Intake & Output 03/27/25 03/28/25 03/29/25 03/30/25 23:59 23:59 23:59 23:59 Intake Total 990 297.9 100 Output Total 0 0 Balance 990 297.9 100 Meds/Results Medications: Active Medications Generic Name Dose Route Start Last Admin Trade Name Freq PRN Reason Stop Dose Admin Acetaminophen 650 mg 03/28/25 14:00 03/30/25 09:04 Acetaminophen 325 Mg Tablet PO 650 mg Q4H PRN Administration Mild Pain (1-3) or Fever Atorvastatin Calcium 40 mg 03/28/25 18:00 03/29/25 17:07 Atorvastatin 40 Mg Tablet PO 40 mg QPM THERESE Administration Atropine Sulfate 0.4 mg 03/28/25 22:41 Atropine Sulfate 0.4 Mg/Ml Vial IV PUSH ONCE PRN Bradycardia Dextrose 12.5 gm 03/28/25 16:45 03/30/25 10:53 Dextrose 50% 25 Gm/50 Ml Syringe IV PUSH 12.5 gm PRN PRN Administration Hypoglycemia Protocol Diclofenac Sodium 1 applic 03/28/25 16:24 Diclofenac Sodium 1% 100 Gm Gel (*Bkc) TOPICAL QID PRN discomfort Epoetin Son-epbx 20,000 units 03/30/25 18:00 Epoetin Son-Epbx 20,000 Units/Ml Vial IV PUSH 03/30/25 18:01 ONCE ONE Glucagon 1 mg 03/28/25 16:45 Glucagon For Inj 1 Mg Vial IM PRN PRN Hypoglycemia Protocol Glucose 15 gm 03/28/25 16:45 Glucose Oral Gel 15 Gm Of Glucse In 37.5 Gm Tube PO PRN PRN Hypoglycemia Protocol Dextrose 1,000 mls @ 100 mls/hr 03/28/25 16:45 Dextrose 5% 1,000 Ml IVPB PRN PRN Hypoglycemia Protocol Dopamine HCl/Dextrose 400 mg in 250 mls @ 0 mls/hr 03/29/25 01:00 03/30/25 06:00 Dopamine 400 Mg/D5w 250 Ml IV CONT 0 mcg/kg/min .Q0M THERESE 0 mls/hr Protocol Titration Albumin Human 50 mls @ 999 mls/hr 03/30/25 01:36 Albutein IVPB 04/29/25 01:35 Q10M PRN HYPOTENSION Meropenem 500 mg/ Sodium 100 mls @ 200 mls/hr 03/30/25 21:00 Chloride IVPB QHS THERESE Insulin Aspart 2 - 5 units 03/28/25 17:00 03/30/25 11:51 Insulin Aspart (*Bkc) 100 Units/Ml SUB-Q Not Given TIDWM [facility] Protocol Insulin Glargine 8 units 03/28/25 21:00 03/29/25 20:45 Insulin Glargine (*Bkc) 100 Units/Ml 0.15 units/kg (8 units) Not Given On Hold: 03/30/25 10:09 SUB-Q HS [facility] Pantoprazole Sodium 40 mg 03/29/25 21:00 03/30/25 09:04 Pantoprazole Sodium Iv 40 Mg Vial IV PUSH 40 mg Q12HR THERESE Administration Polyethylene Glycol 17 gm 03/28/25 16:24 Polyethylene Glycol 3350 17 Gm Powd.Pack PO DAILY PRN Constipation Tobramycin Sulfate 1 drop 03/28/25 17:00 03/30/25 09:04 Tobramycin Sulfate 0.3% Ophth Soln 5 Ml EACH EYE 1 drop Q4HR THERESE Administration Vitamin B Complex/Folic Acid 1 cap 03/29/25 09:00 03/30/25 09:04 Vitamin B Cmplx/Vit C/Folic Ac 1 Capsule PO 1 cap DAILY THERESE Administration Radiology Results: ITS Impressions Abdomen/Pelvis CT 03/28/25 12:11 IMPRESSION: 1. Colitis. Likely infectious or inflammatory but given severe atherosclerotic disease, ischemic remains possible. Recommend correlation with lactate. Head CT 03/28/25 17:58 Impression: 1.No acute intracranial abnormality. Chest X-Ray 03/29/25 11:20 IMPRESSION: 1. Developing interstitial pulmonary edema. Labs Labs: Laboratory Results - last 24 hr 03/29/25 03/29/25 03/29/25 16:21 18:51 19:53 WBC 7.3 RBC 2.76 L Hgb 7.9 L Hct 26.5 L MCV 96.0 MCH 28.6 MCHC 29.8 L RDW 24.0 H Plt Count 167 MPV 10.3 Sodium Potassium Chloride Carbon Dioxide Anion Gap BUN Creatinine Estim Creat Clear Calc Estimated GFR Glucose POC Capillary Glucose 100 99 Calcium Phosphorus Magnesium Total Bilirubin AST ALT Alkaline Phosphatase Total Protein Albumin Hep Bs Antigen Hep Bs Antibody 03/30/25 03/30/25 03/30/25 00:38 05:11 09:07 WBC 6.3 6.9 RBC 2.53 L 2.68 L Hgb 7.2 L 7.8 L Hct 23.9 L 25.9 L MCV 94.5 96.6 MCH 28.5 29.1 MCHC 30.1 L 30.1 L RDW 23.8 H 23.8 H Plt Count 160 174 MPV 10.5 H 10.8 H Sodium 131 L Potassium 4.3 Chloride 95 L Carbon Dioxide 26 Anion Gap 10 BUN 58 H Creatinine 5.52 H Estim Creat Clear Calc Not Reportable Estimated GFR 7 L Glucose 82 POC Capillary Glucose 77 Calcium 8.4 Phosphorus 5.6 H Magnesium 2.0 Total Bilirubin 0.6 AST 26 ALT 17 Alkaline Phosphatase 121 Total Protein 5.5 L Albumin 3.2 L Hep Bs Antigen Negative Hep Bs Antibody Negative 03/30/25 03/30/25 03/30/25 10:41 11:10 11:43 WBC RBC Hgb Hct MCV MCH MCHC RDW Plt Count MPV Sodium Potassium Chloride Carbon Dioxide Anion Gap BUN Creatinine Estim Creat Clear Calc Estimated GFR Glucose POC Capillary Glucose 67 113 H 100 Calcium Phosphorus Magnesium Total Bilirubin AST ALT Alkaline Phosphatase Total Protein Albumin Hep Bs Antigen Hep Bs Antibody Quality VTE Prophylaxis VTE prophylaxis: mechanical ordered
[2025-03-30] MEDS: EPOETIN ALFA-EPBX 20,000 UNITS/ML VIAL 20000 UNITS IV PUSH (16:09)
--- NOTE | 2025-03-30 16:56 | P.PNNP_ITS ---
Progress Note: A&P Assessment and Plan (1) End stage renal disease: Code(s): N18.6 - End stage renal disease Status: Chronic Assessment and Plan: * HD today * continue M/W/F dialysis schedule while hospitalized * follow electrolytes, volume status, and clearance (2) Upper GI bleed: Code(s): K92.2 - Gastrointestinal hemorrhage, unspecified Status: Acute Assessment and Plan: * suspected on admission * low H/H noted on presentation in association with abdominal pain * known history of gastric ulcer * CT abdomen pelvis negative for any perforation * on PPI * serial hemoglobin monitoring * PRBC transfusion per protocol * GI recommendations noted: * EGD (on 03/30): normal; no evidene of bleeding lesions (3) Bradycardia: Code(s): R00.1 - Bradycardia, unspecified Status: Acute Assessment and Plan: * slow Afib with bradycardia * notably worse with rest/sleep and better when awake * off dopamine gtt * Cardiology recommendations noted (4) Paroxysmal atrial fibrillation: Code(s): I48.0 - Paroxysmal atrial fibrillation Status: Acute Assessment and Plan: * rate controlled * no anticoagulation due to history of gastric ulcer/GI bleed and is s/p left atrial appendage occlusion device (5) Colitis: Code(s): K52.9 - Noninfective gastroenteritis and colitis, unspecified Status: Inactive Assessment and Plan: * as noted by admission CT abdomen + pelvis * empiric antibiotics * follow culture data (6) Anemia: Qualifiers: Anemia type: unspecified type Qualified Code(s): D64.9 - Anemia, unspecified Code(s): D64.9 - Anemia, unspecified Status: Chronic Assessment and Plan: * related to ESRD * complicated by #2 * Epogen with HD * PRBC transfusion per protocol * follow trend of H/H (7) Peripheral arterial disease: Code(s): I73.9 - Peripheral vascular disease, unspecified Status: Acute Assessment and Plan: * known history * s/p intervention at [facility] recently prior to admission * was on plavix and ASA * currently on hold (8) Type 2 diabetes mellitus: Qualifiers: Diabetes mellitus terminologist insulin use: without terminologist use Diabetes mellitus complication status: without complication Qualified Code(s): E11.9 - Type 2 diabetes mellitus without complications Code(s): E11.9 - Type 2 diabetes mellitus without complications Status: Chronic Assessment and Plan: * follow accuchecks * glycemic control per nuclear design engineer/hospitalist Will continue to follow. L Subjective Date/time seen: 03/30/25 16:56 Interval history: Follow-up for end stage renal disease on hemodialysis. Tolerating dialysis treatment at the time of my visit (seen on HD at 4:45pm); weaned off dopamine gtt with stable heart rate and hemodynamics; s/p EGD earlier today with results noted; H/H relatively stable at this time; mentation at baseline as well; only complaint is generalized paln that she attributes to arthritis. Exam 2 Narrative: General: frail and elderly female in NAD Heart: normal S1 and S2; no rub Lungs: clear anteriorly; decreased at bases Abdomen: soft, nontender, nondistended, positive bowel sounds Extremities: no cyanosis or clubbing; no edema Skin: warm and dry Objective Data Vital Signs Vital Signs: Vital Signs Temp Pulse Resp BP Pulse Ox O2 Del Method O2 Flow Rate 03/30/25 16:45 68 126/40 L 03/30/25 16:30 56 L 114/40 L 03/30/25 16:15 55 L 124/53 L 03/30/25 16:00 62 03/30/25 16:00 97.9 F 62 19 119/43 L 98 03/30/25 16:00 100 Room Air 03/30/25 16:00 53 L 119/43 L 03/30/25 15:45 56 L 134/83 03/30/25 15:30 54 L 124/52 L 03/30/25 15:15 53 L 121/45 L 03/30/25 15:09 53 L 128/49 L 03/30/25 14:56 97.6 F 54 L 18 116/48 L 100 03/30/25 14:00 56 L 17 131/50 L 99 03/30/25 14:00 61 03/30/25 12:20 97.4 F L 62 12 99/58 L 100 03/30/25 12:15 55 L 03/30/25 12:15 100 Room Air 03/30/25 11:51 55 L 24 H 115/85 100 Nasal Cannula 2 03/30/25 11:41 64 27 H 111/37 L 100 Nasal Cannula 2 03/30/25 11:31 64 28 H 102/40 L 100 Nasal Cannula 2 03/30/25 11:22 98.2 F 65 28 H 110/41 L 100 Nasal Cannula 2 03/30/25 10:00 64 03/30/25 09:09 97 Room Air 03/30/25 08:00 55 L 03/30/25 08:00 100 Nasal Cannula 2 03/30/25 06:00 66 03/30/25 05:48 97.7 F 66 19 115/42 L 100 03/30/25 05:29 61 03/30/25 04:00 53 L 03/30/25 04:00 98.6 F 70 23 H 111/38 L 100 03/30/25 04:00 70 03/30/25 03:44 100 Nasal Cannula 2 03/30/25 02:00 61 03/30/25 02:00 58 L 18 125/55 L 100 03/30/25 02:00 58 L 03/30/25 00:00 55 L 101/85 03/30/25 00:00 98 F 55 L 18 101/85 96 03/30/25 00:00 55 L 03/29/25 23:50 100 Nasal Cannula 2 03/29/25 22:57 97 Nasal Cannula 2 03/29/25 22:00 64 108/39 L 03/29/25 22:00 63 20 108/39 L 100 03/29/25 22:00 63 03/29/25 20:00 63 108/39 L 03/29/25 20:00 53 L 03/29/25 20:00 100 Nasal Cannula 2 03/29/25 20:00 98.2 F 89 22 H 146/74 H 97 Intake/Output Intake/Output: Intake & Output 03/27/25 03/28/25 03/29/25 03/30/25 23:59 23:59 23:59 23:59 Intake Total 990 297.9 340 Output Total 0 0 Balance 990 297.9 340 Meds/Results Medications: Active Medications Generic Name Dose Route Start Last Admin Trade Name Freq PRN Reason Stop Dose Admin Acetaminophen 650 mg 03/28/25 14:00 03/30/25 09:04 Acetaminophen 325 Mg Tablet PO 650 mg Q4H PRN Administration Mild Pain (1-3) or Fever Atorvastatin Calcium 40 mg 03/28/25 18:00 03/29/25 17:07 Atorvastatin 40 Mg Tablet PO 40 mg QPM THERESE Administration Atropine Sulfate 0.4 mg 03/28/25 22:41 Atropine Sulfate 0.4 Mg/Ml Vial IV PUSH ONCE PRN Bradycardia Dextrose 12.5 gm 03/28/25 16:45 03/30/25 10:53 Dextrose 50% 25 Gm/50 Ml Syringe IV PUSH 12.5 gm PRN PRN Administration Hypoglycemia Protocol Diclofenac Sodium 1 applic 03/28/25 16:24 Diclofenac Sodium 1% 100 Gm Gel (*Bkc) TOPICAL QID PRN discomfort Glucagon 1 mg 03/28/25 16:45 Glucagon For Inj 1 Mg Vial IM PRN PRN Hypoglycemia Protocol Glucose 15 gm 03/28/25 16:45 Glucose Oral Gel 15 Gm Of Glucse In 37.5 Gm Tube PO PRN PRN Hypoglycemia Protocol Dextrose 1,000 mls @ 100 mls/hr 03/28/25 16:45 Dextrose 5% 1,000 Ml IVPB PRN PRN Hypoglycemia Protocol Dopamine HCl/Dextrose 400 mg in 250 mls @ 0 mls/hr 03/29/25 01:00 03/30/25 06:00 Dopamine 400 Mg/D5w 250 Ml IV CONT 0 mcg/kg/min .Q0M THERESE 0 mls/hr Protocol Titration Albumin Human 50 mls @ 999 mls/hr 03/30/25 01:36 Albutein IVPB 04/29/25 01:35 Q10M PRN HYPOTENSION Meropenem 500 mg/ Sodium 100 mls @ 200 mls/hr 03/30/25 21:00 Chloride IVPB QHS THERESE Insulin Aspart 2 - 5 units 03/28/25 17:00 03/30/25 11:51 Insulin Aspart (*Bkc) 100 Units/Ml SUB-Q Not Given TIDWM [facility] Protocol Insulin Glargine 8 units 03/28/25 21:00 03/29/25 20:45 Insulin Glargine (*Bkc) 100 Units/Ml 0.15 units/kg (8 units) Not Given On Hold: 03/30/25 10:09 SUB-Q [facility] Pantoprazole Sodium 40 mg 03/29/25 21:00 03/30/25 09:04 Pantoprazole Sodium Iv 40 Mg Vial IV PUSH 40 mg Q12HR THERESE Administration Polyethylene Glycol 17 gm 03/28/25 16:24 Polyethylene Glycol 3350 17 Gm Powd.Pack PO DAILY PRN Constipation Tobramycin Sulfate 1 drop 03/28/25 17:00 03/30/25 09:04 Tobramycin Sulfate 0.3% Ophth Soln 5 Ml EACH EYE 1 drop Q4HR THERESE Administration Vitamin B Complex/Folic Acid 1 cap 03/29/25 09:00 03/30/25 09:04 Vitamin B Cmplx/Vit C/Folic Ac 1 Capsule PO 1 cap DAILY THERESE Administration Radiology Results: ITS Impressions Abdomen/Pelvis CT 03/28/25 12:11 IMPRESSION: 1. Colitis. Likely infectious or inflammatory but given severe atherosclerotic disease, ischemic remains possible. Recommend correlation with lactate. Head CT 03/28/25 17:58 Impression: 1.No acute intracranial abnormality. Chest X-Ray 03/29/25 11:20 IMPRESSION: 1. Developing interstitial pulmonary edema. Labs Labs: Laboratory Tests 03/30/25 05:11 03/30/25 05:11 Calcium 8.4 Phosphorus 5.6 H Magnesium 2.0 Total Bilirubin 0.6 AST 26 ALT 17 Alkaline Phosphatase 121 Total Protein 5.5 L Albumin 3.2 L
[2025-03-30] MEDS: ASPIRIN 81 MG CHEWABLE TABLET PO (19:59)
[2025-03-30] MEDS: CLOPIDOGREL BISULFATE 75 MG TABLET PO (19:59)
[2025-03-30] MEDS: ATORVASTATIN 40 MG TABLET PO (19:59)
[2025-03-30] MEDS: MEROPENEM 500 MG in SODIUM CHLORIDE 0.9% IV 100 ML 200 ML IVPB (20:02)
--- NOTE | 2025-03-30 20:24 | WNDPHOTO ---
PHOTO ONLY - See Nursing Notes and/ or assessments for documentation.
[2025-03-31] VITALS (10 sets, daily range): BP systolic 106–158; BP diastolic 45–89; PULSE 56–79; RESP 15–25; TEMP 36.3–36.8; O2SAT 94–100
[2025-03-31 04:30] LABS: Hematocrit 27.0 % (37.0-47.0); Hemoglobin 8.1 g/dL (12.0-15.0); Mean Corpuscular HGB Conc 30.0 g/dl (32-36); Mean Corpuscular Hemoglobin 28.9 pg (26-34); Mean Corpuscular Volume 96.4 fl (80-100); Platelet Count Result 171 k/mm3 (150-375); Red Blood Count 2.80 M/mm3 (4.2-5.4); White Blood Count 6.3 K/mm3 (4.5-10.0)
[2025-03-31 05:00] LABS: Alanine Aminotransferase 21 U/L (6-35); Albumin Level 3.3 g/dL (3.5-5.1); Alkaline Phosphatase 168 U/L (38-126); Anion Gap 7 mmol/L (4-12); Aspartate Amino Transferase 35 U/L (14-36); Bilirubin,Total 0.6 mg/dL (0.2-1.3); Blood Urea Nitrogen 23 mg/dL (7-17); Calcium 8.1 mg/dL (8.4-10.2); Carbon Dioxide 28 mmol/L (22-30); Chloride 98 mmol/L (98-107); Estimated Glomerular Filt Rate 15; Glucose 213 mg/dL (65-110); Magnesium 2.0 mg/dL (1.6-2.3); Potassium 3.5 mmol/L (3.4-5.0); Sodium 133 mmol/L (137-145); Total Protein 5.6 g/dL (6.3-8.2)
[2025-03-31] MEDS: TOBRAMYCIN SULFATE 0.3% OPHTH SOLN 5 ML 1 DROP EACH EYE ×5 (05:01→20:04)
[2025-03-31] MEDS: ACETAMINOPHEN 325 MG TABLET 650 MG PO (05:22)
[2025-03-31] MEDS: CLOPIDOGREL BISULFATE 75 MG TABLET PO (09:05)
[2025-03-31] MEDS: ASPIRIN 81 MG CHEWABLE TABLET PO (09:05)
[2025-03-31] MEDS: PANTOPRAZOLE SODIUM IV 40 MG VIAL IV PUSH ×2 (09:05→20:04)
[2025-03-31] MEDS: VITAMIN B CMPLX/VIT C/FOLIC AC 1 CAPSULE 1 CAP PO (09:05)
--- NOTE | 2025-03-31 09:07 | WPDINTPN ---
Progress Note: A&P Assessment and Plan (1) Paroxysmal atrial fibrillation: Code(s): I48.0 - Paroxysmal atrial fibrillation Status: Acute Assessment and Plan: Currently in AFib. Rate is controlled She is not a candidate for anticoagulation due to history of GI bleed gastric ulcer and current GI bleed -continue aspirin 81 mg and clopidogrel (2) Bradycardia: Code(s): R00.1 - Bradycardia, unspecified Status: Acute Assessment and Plan: Patient has slow AFib and had episode of bradycardia on the floor and was transferred to ICU. On review patient does have pause is 2-3 second duration Heart rate is lower when she is sleeping and improves as she is more awake. -OFF DOPAMINE -discussed with Cardiology,Dr. Gutierrez stated that Dr. Rodriguez now evaluated the patient for pacemaker and does not think that she needs it right now as she is high risk. - Echocardiogram done in 08/2024 reviewed and showed EF of 65% with concentric left ventricle thickness and diastolic dysfunction. She also had mild aortic stenosis along with moderate pulmonary hypertension. At this time her blood pressure is stable. Monitor (3) Hyperlipidemia: Code(s): E78.5 - Hyperlipidemia, unspecified Status: Chronic Assessment and Plan: On atorvastatin (4) Upper GI bleed: Code(s): K92.2 - Gastrointestinal hemorrhage, unspecified Status: Acute Assessment and Plan: Patient has history of gastric ulcer and gastritis and now presented with complaints and hemoglobin level consistent with upper GI bleed CT abdomen pelvis negative for any perforation. IV Protonix q.12 hours -hemoglobin have been stable Patient was transfused 2 units of PRBC at the time of admission 03/30/2025: EGD was done: Normally EGD to depth of insertion (5) Upper abdominal pain: Code(s): R10.10 - Upper abdominal pain, unspecified Status: Acute Assessment and Plan: Epigastric pain has resolved. - Normal lipase -CT scan did not show any evidence off pancreatitis although it did show colitis. (6) ESRD (end stage renal disease) on dialysis: Code(s): N18.6 - End stage renal disease; Z99.2 - Dependence on renal dialysis Status: Chronic Assessment and Plan: Patient with end-stage renal disease on dialysis -dialysis per Nephrology 03/30: And dialysis with 2000 mL in fluid removal, tolerated well (7) Anemia: Code(s): D64.9 - Anemia, unspecified Status: Acute Assessment and Plan: Multifactorial anemia likely exacerbated with GI bleed. See above -Epogen per Nephrology (8) Colitis: Code(s): K52.9 - Noninfective gastroenteritis and colitis, unspecified Status: Inactive Assessment and Plan: CT abdomen pelvis suggestive of colitis. Continue empiric broad-spectrum antibiotics -meropenem Unlikely to be ischemic as lactic acid level was normal although patient has significant peripheral arterial disease Plan DVT prophylaxis -SCDs Stress ulcer prophylaxis -PPI IV q.12 hours Nutrition -diabetic consistent carb diet, heart healthy diet, renal diet Code Status - Full Code Total Critical Care Time - 31 minutes Patient may transfer out of the ICU Due to a high probability of clinically significant, life threatening deterioration, the patient required my highest level of preparedness to intervene emergently and I personally spent this critical care time directly and personally managing the patient. This critical care time included obtaining a history; examining the patient; pulse oximetry; ordering and review of studies; arranging urgent treatment with development of a management plan; evaluation of patient's response to treatment; frequent reassessment; and discussions with other providers. It was exclusive of separately billable procedures and treating other patients and teaching time. Please see Assessment and Plan section and the rest of the note for further information on patient assessment and treatment This dictation may have been done utilizing a voice recognition system. Attempts have been made to correct errors. However, there may be uncorrected grammatical, spelling, and recognitions errors present. Subjective Date/time seen: 03/31/25 09:07 Interval history: Reason for consult:? GI bleed, bradycardia with pause, end-stage renal disease on hemodialysis, peripheral arterial disease status post recent surgery at [facility] with stent placement to the right lower extremity 03/30/2025: EGD: Normal EGD attempt of insertion. 03/31/2025: Patient seen and examined the ICU, is awake, alert, oriented, nonfocal, denies any chest pain, shortness a with, abdominal pain, nausea, vomiting. States her right lower extremity pain is much improved. EGD done yesterday was normal. Patient received dialysis with 2000 mL in fluid removal on 03/30 and tolerated well. Blood pressures and heart rates have been good. Patient only had a drop in her heart rate while sleeping overnight. Tolerating p.o. diet Review of Systems Review of Systems: All systems reviewed & are unremarkable except as noted in HPI and below (HPI) Exam Narrative: General: Cachectic old female who looks frail and malnourished. HEENT: Pupils equal and reactive, sclera is clear, moist oral mucosa Lungs/Chest: Trachea central Clear BS B/L, No crackles or wheezing. Cardiac: Irregular rate and rhythm rate controlled, no murmurs Circulation: Both dorsalis pedis are palpable weak. Feet are warm. Abdomen: Soft, nontender, nondistended, normoactive bowel sounds Extremities: No clubbing, cyanosis or edema. 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 She has a wound on right big toe which is under dressing, she has a fistula in both arms left is nonfunctional. Right fistula has a thrill Neurologic: Follows commands. Moves all 4 extremities PERRL AO x3 Skin: No Rash Psych: Normal mentation and affect Objective Data Vital Signs Vital Signs: Vital Signs - 24 hr 03/30/25 09:09 03/30/25 10:00 03/30/25 11:22 Temperature 98.2 F Pulse Rate 64 65 Respiratory Rate 28 H Blood Pressure 110/41 L Pulse Oximetry 97 100 Oxygen Delivery Room Air Nasal Cannula Oxygen Flow Rate 2 Fraction of Inspired Oxygen 03/30/25 11:31 03/30/25 11:41 03/30/25 11:51 Temperature Pulse Rate 64 64 55 L Respiratory Rate 28 H 27 H 24 H Blood Pressure 102/40 L 111/37 L 115/85 Pulse Oximetry 100 100 100 Oxygen Delivery Nasal Cannula Nasal Cannula Nasal Cannula Oxygen Flow Rate 2 2 2 Fraction of Inspired Oxygen 03/30/25 12:15 03/30/25 12:15 03/30/25 12:20 Temperature 97.4 F L Pulse Rate 55 L 62 Respiratory Rate 12 Blood Pressure 99/58 L Pulse Oximetry 100 100 Oxygen Delivery Room Air Oxygen Flow Rate Fraction of Inspired Oxygen 03/30/25 14:00 03/30/25 14:00 03/30/25 14:56 Temperature 97.6 F Pulse Rate 61 56 L 54 L Respiratory Rate 17 18 Blood Pressure 131/50 L 116/48 L Pulse Oximetry 99 100 Oxygen Delivery Oxygen Flow Rate Fraction of Inspired Oxygen 03/30/25 15:09 03/30/25 15:15 03/30/25 15:30 Temperature Pulse Rate 53 L 53 L 54 L Respiratory Rate Blood Pressure 128/49 L 121/45 L 124/52 L Pulse Oximetry Oxygen Delivery Oxygen Flow Rate Fraction of Inspired Oxygen 03/30/25 15:45 03/30/25 16:00 03/30/25 16:00 Temperature Pulse Rate 56 L 53 L Respiratory Rate Blood Pressure 134/83 119/43 L Pulse Oximetry 100 Oxygen Delivery Room Air Oxygen Flow Rate Fraction of Inspired Oxygen 03/30/25 16:00 03/30/25 16:00 03/30/25 16:15 Temperature 97.9 F Pulse Rate 62 62 55 L Respiratory Rate 19 Blood Pressure 119/43 L 124/53 L Pulse Oximetry 98 Oxygen Delivery Oxygen Flow Rate Fraction of Inspired Oxygen 03/30/25 16:30 03/30/25 16:45 03/30/25 17:00 Temperature Pulse Rate 56 L 68 59 L Respiratory Rate Blood Pressure 114/40 L 126/40 L 122/48 L Pulse Oximetry Oxygen Delivery Oxygen Flow Rate Fraction of Inspired Oxygen 03/30/25 17:15 03/30/25 17:30 03/30/25 17:45 Temperature Pulse Rate 54 L 63 57 L Respiratory Rate Blood Pressure 120/45 L 122/47 L 104/67 Pulse Oximetry Oxygen Delivery Oxygen Flow Rate Fraction of Inspired Oxygen 03/30/25 18:00 03/30/25 18:00 03/30/25 18:00 Temperature Pulse Rate 76 57 L 67 Respiratory Rate 20 Blood Pressure 122/50 L 122/50 L Pulse Oximetry 98 Oxygen Delivery Oxygen Flow Rate Fraction of Inspired Oxygen 03/30/25 18:15 03/30/25 18:30 03/30/25 18:56 Temperature 97.8 F Pulse Rate 59 L 65 61 Respiratory Rate 16 Blood Pressure 120/49 L 118/47 L 123/48 L Pulse Oximetry 99 Oxygen Delivery Oxygen Flow Rate Fraction of Inspired Oxygen 03/30/25 19:00 03/30/25 19:59 03/30/25 20:00 Temperature 98.7 F Pulse Rate 64 61 63 Respiratory Rate 20 16 Blood Pressure 119/49 L Pulse Oximetry 96 97 Oxygen Delivery Room Air Oxygen Flow Rate Fraction of Inspired Oxygen 21 03/30/25 20:00 03/30/25 20:00 03/30/25 22:00 Temperature Pulse Rate 70 72 Respiratory Rate Blood Pressure Pulse Oximetry Oxygen Delivery Room Air Oxygen Flow Rate Fraction of Inspired Oxygen 03/30/25 22:00 03/30/25 22:20 03/30/25 22:39 Temperature Pulse Rate 72 55 L Respiratory Rate 25 H 21 H Blood Pressure 117/46 L Pulse Oximetry 93 93 95 Oxygen Delivery BiPAP Room Air Oxygen Flow Rate Fraction of Inspired Oxygen 03/31/25 00:00 03/31/25 00:00 03/31/25 00:00 Temperature 98.1 F Pulse Rate 66 61 Respiratory Rate 25 H Blood Pressure 125/45 L Pulse Oximetry 94 Oxygen Delivery Room Air Oxygen Flow Rate Fraction of Inspired Oxygen 03/31/25 01:04 03/31/25 02:00 03/31/25 02:00 Temperature Pulse Rate 56 L 64 64 Respiratory Rate 25 H Blood Pressure 148/52 H Pulse Oximetry 95 97 Oxygen Delivery Room Air Oxygen Flow Rate Fraction of Inspired Oxygen 03/31/25 04:00 03/31/25 04:00 03/31/25 04:00 Temperature 97.9 F Pulse Rate 66 76 Respiratory Rate 15 Blood Pressure 106/49 L Pulse Oximetry 98 Oxygen Delivery Room Air Oxygen Flow Rate Fraction of Inspired Oxygen 03/31/25 06:00 03/31/25 06:00 Temperature Pulse Rate 65 65 Respiratory Rate 20 Blood Pressure 140/55 L Pulse Oximetry 97 Oxygen Delivery Oxygen Flow Rate Fraction of Inspired Oxygen Intake/Output Intake/Output: Intake & Output 03/28/25 03/29/25 03/30/25 03/31/25 23:59 23:59 23:59 23:59 Intake Total 990 297.9 680 100 Output Total 0 2000 0 Balance 990 297.9 -1320 100 Meds/Results Medications: Active Medications Generic Name Dose Route Start Last Admin Trade Name Johnathonq PRN Reason Stop Dose Admin Acetaminophen 650 mg 03/28/25 14:00 03/31/25 05:22 Acetaminophen 325 Mg Tablet PO 650 mg Q4H PRN Administration Mild Pain (1-3) or Fever Aspirin 81 mg 03/30/25 19:15 03/31/25 09:05 Aspirin 81 Mg Chewable Tablet PO 81 mg DAILY@0800 [facility] Administration Atorvastatin Calcium 40 mg 03/28/25 18:00 03/30/25 19:59 Atorvastatin 40 Mg Tablet PO 40 mg QPM THERESE Administration Atropine Sulfate 0.4 mg 03/28/25 22:41 Atropine Sulfate 0.4 Mg/Ml Vial IV PUSH ONCE PRN Bradycardia Clopidogrel Bisulfate 75 mg 09/22/25 19:15 03/31/25 09:05 Clopidogrel Bisulfate 75 Mg Tablet PO 75 mg QAM THERESE Administration Dextrose 12.5 gm 03/28/25 16:45 03/30/25 10:53 Dextrose 50% 25 Gm/50 Ml Syringe IV PUSH 12.5 gm PRN PRN Administration Hypoglycemia Protocol Diclofenac Sodium 1 applic 03/28/25 16:24 Diclofenac Sodium 1% 100 Gm Gel (*Bkc) TOPICAL QID PRN discomfort Glucagon 1 mg 03/28/25 16:45 Glucagon For Inj 1 Mg Vial IM PRN PRN Hypoglycemia Protocol Glucose 15 gm 03/28/25 16:45 Glucose Oral Gel 15 Gm Of Glucse In 37.5 Gm Tube PO PRN PRN Hypoglycemia Protocol Dextrose 1,000 mls @ 100 mls/hr 03/28/25 16:45 Dextrose 5% 1,000 Ml IVPB PRN PRN Hypoglycemia Protocol Dopamine HCl/Dextrose 400 mg in 250 mls @ 0 mls/hr 03/29/25 01:00 03/30/25 19:00 Dopamine 400 Mg/D5w 250 Ml IV CONT Infused .Q0M THERESE Titration Protocol Albumin Human 50 mls @ 999 mls/hr 03/30/25 01:36 Albutein IVPB 04/29/25 01:35 Q10M PRN HYPOTENSION Meropenem 500 mg/ Sodium 100 mls @ 200 mls/hr 03/30/25 21:00 03/30/25 20:32 Chloride IVPB Infused QHS THERESE Infusion Insulin Aspart 2 - 5 units 03/28/25 17:00 03/31/25 09:04 Insulin Aspart (*Bkc) 100 Units/Ml SUB-Q Not Given TIDWM [facility] Protocol Insulin Glargine 8 units 03/28/25 21:00 03/29/25 20:45 Insulin Glargine (*Bkc) 100 Units/Ml 0.15 units/kg (8 units) Not Given On Hold: 03/30/25 10:09 SUB-Q [facility] Pantoprazole Sodium 40 mg 03/29/25 21:00 03/31/25 09:05 Pantoprazole Sodium Iv 40 Mg Vial IV PUSH 40 mg Q12HR THERESE Administration Polyethylene Glycol 17 gm 03/28/25 16:24 Polyethylene Glycol 3350 17 Gm Powd.Pack PO DAILY PRN Constipation Tobramycin Sulfate 1 drop 03/28/25 17:00 03/31/25 09:06 Tobramycin Sulfate 0.3% Ophth Soln 5 Ml EACH EYE 1 drop Q4HR THERESE Administration Vitamin B Complex/Folic Acid 1 cap 03/29/25 09:00 03/31/25 09:05 Vitamin B Cmplx/Vit C/Folic Ac 1 Capsule PO 1 cap DAILY THERESE Administration Radiology Results: ITS Impressions Abdomen/Pelvis CT 03/28/25 12:11 IMPRESSION: 1. Colitis. Likely infectious or inflammatory but given severe atherosclerotic disease, ischemic remains possible. Recommend correlation with lactate. Head CT 03/28/25 17:58 Impression: 1.No acute intracranial abnormality. Chest X-Ray 03/29/25 11:20 IMPRESSION: 1. Developing interstitial pulmonary edema. Labs Labs: Laboratory Results - last 24 hr 03/30/25 03/30/25 03/30/25 09:07 10:41 11:10 WBC RBC Hgb Hct MCV MCH MCHC RDW Plt Count MPV Sodium Potassium Chloride Carbon Dioxide Anion Gap BUN Creatinine Estim Creat Clear Calc Estimated GFR Glucose POC Capillary Glucose 77 67 113 H Calcium Phosphorus Magnesium Total Bilirubin AST ALT Alkaline Phosphatase Total Protein Albumin 03/30/25 03/30/25 03/31/25 11:43 20:01 04:11 WBC 6.3 RBC 2.80 L Hgb 8.1 L Hct 27.0 L MCV 96.4 MCH 28.9 MCHC 30.0 L RDW 22.5 H Plt Count 171 MPV 10.8 H Sodium 133 L Potassium 3.5 Chloride 98 Carbon Dioxide 28 Anion Gap 7 BUN 23 H D Creatinine 2.94 H Estim Creat Clear Calc Not Reportable Estimated GFR 15 L Glucose 213 H POC Capillary Glucose 100 163 H Calcium 8.1 L Phosphorus 2.7 Magnesium 2.0 Total Bilirubin 0.6 AST 35 ALT 21 Alkaline Phosphatase 168 H Total Protein 5.6 L Albumin 3.3 L 03/31/25 08:06 WBC RBC Hgb Hct MCV MCH MCHC RDW Plt Count MPV Sodium Potassium Chloride Carbon Dioxide Anion Gap BUN Creatinine Estim Creat Clear Calc Estimated GFR Glucose POC Capillary Glucose 196 H Calcium Phosphorus Magnesium Total Bilirubin AST ALT Alkaline Phosphatase Total Protein Albumin Quality VTE Prophylaxis VTE prophylaxis: mechanical ordered
--- NOTE | 2025-03-31 09:18 | PM.PNCARD ---
Progress Note: A&P Assessment and Plan (1) Paroxysmal atrial fibrillation: Code(s): I48.0 - Paroxysmal atrial fibrillation Status: Acute (2) Bradycardia: Code(s): R00.1 - Bradycardia, unspecified Status: Acute (3) Peripheral arterial disease: Code(s): I73.9 - Peripheral vascular disease, unspecified Status: Acute (4) Hyperlipidemia: Code(s): E78.5 - Hyperlipidemia, unspecified Status: Chronic (5) Hypertension: Qualifiers: Hypertension type: unspecified Qualified Code(s): I10 - Essential (primary) hypertension Code(s): I10 - Essential (primary) hypertension Status: Chronic (6) Severe claudication: Code(s): I73.9 - Peripheral vascular disease, unspecified Status: Acute (7) CAD (coronary artery disease): Code(s): I25.10 - Atherosclerotic heart disease of [place] coronary artery without angina pectoris Status: Acute (8) Elevated troponin: Code(s): R79.89 - Other specified abnormal findings of blood chemistry Status: Acute Plan Problem list: Bradycardia-resolved Paroxysmal atrial fibrillation status post left atrial appendage occlusion at [place] in 2018 Nonobstructive CAD-no chest pain; TTE in 08/2024 showed normal LVEF of 65%, mild AF, mild MR, mild TR, trace GA, moderate pulmonary hypertension (PASP 50 mm Hg) Elevated troponin- no chest pain; most likely secondary to demand supply mismatch due to acute anemia Hypertension-controlled Hyperlipidemia-on statin Acute GI bleed status post PRBC transfusion- GI following; hemoglobin 8.1 today Peripheral vascular disease status post recent PTCA at [facility] -laser arthrectomy of anterior tibial, balloon angioplasty of posterior tibial, following by laser arthrectomy and balloon angioplasty of dorsalis pedalis. Then zilver PTX stent to popliteal artery (03/19/25) -on aspirin and Plavix at presentation. have been resumed this am as no bleeding noted on EGD End-stage renal disease on dialysis Plan: Continue to monitor on telemetry. Rates are controlled in the 50s to 70s range. She is status post left atrial appendage occlusion and therefore no anticoagulation required Troponin was mildly elevated and mostly flat. She has no chest pain. Troponin elevation is most likely supply demand mismatch due to acute severe anemia. Can stop checking since troponin peaked and down trending EKG p.r.n. for any chest pain Asa and plavix resumed this am 03/31 as no bleeding noted on EGD. Will monitor H&H closely. Continue statin Start Voltaren cream for pain in the right foot Management of other medical problems per primary team Subjective Date/time seen: 03/31/25 09:18 Interval history: Reason for encounter: Bradycardia, paroxysmal atrial fibrillation Relevant history: 79-year-old female with CAD, chronic atrial fibrillation status post left atrial appendage occlusion at [place] in 2019, hypertension, diabetes, end-stage renal disease on HD, peptic ulcer disease with bleeding gastric ulcers in the past, PVD, nonhealing ulcer on her right toe status post recent PTCA to right lower extremity at [place] was admitted with dark stools secondary to GI bleed. She was noted to have a hemoglobin of 5.9 at presentation and received 2 units PRBCs with improvement in hemoglobin to 7.8. She was reportedly bradycardic to the 40s and Cardiology was consulted for further recommendations. Interval history: Patient reports pain in her right foot and heel of intensity 03/18. She says she uses Voltaren cream at home for pain. No chest pain, shortness of breath, dizziness. Telemetry shows paroxysmal atrial fibrillation with rates in the 50s to 70s. 03/31/25: Patient is sitting up in bed, nurse at bedside. She is overall feeling well. No c/o any chest pain or shortness of breath. No reports of any bleeding. No dizziness or palpitations Review of Systems Review of Systems: All systems reviewed & are unremarkable except as noted in HPI and below Exam Narrative: General: Alert oriented x3, no acute distress Neck: Supple, no JVD Chest: Bilaterally clear to auscultation, no rales or rhonchi Cardiac: S1, S2 +, irregularly irregular rhythm, no murmurs or rubs Extremities: No pedal edema, no skin rash. Drsg to rt heel Neurologic: Alert and oriented x3, no focal neurological deficits Objective Data Vital Signs Vital Signs: Vital Signs - 24 hr 03/30/25 10:00 03/30/25 11:22 03/30/25 11:31 Temperature 36.8 C Pulse Rate 64 65 64 Respiratory Rate 28 H 28 H Blood Pressure 110/41 L 102/40 L Pulse Oximetry 100 100 Oxygen Delivery Nasal Cannula Nasal Cannula Oxygen Flow Rate 2 2 Fraction of Inspired Oxygen 03/30/25 11:41 03/30/25 11:51 03/30/25 12:15 Temperature Pulse Rate 64 55 L Respiratory Rate 27 H 24 H Blood Pressure 111/37 L 115/85 Pulse Oximetry 100 100 100 Oxygen Delivery Nasal Cannula Nasal Cannula Room Air Oxygen Flow Rate 2 2 Fraction of Inspired Oxygen 03/30/25 12:15 03/30/25 12:20 03/30/25 14:00 Temperature 36.3 C L Pulse Rate 55 L 62 61 Respiratory Rate 12 Blood Pressure 99/58 L Pulse Oximetry 100 Oxygen Delivery Oxygen Flow Rate Fraction of Inspired Oxygen 03/30/25 14:00 03/30/25 14:56 03/30/25 15:09 Temperature 36.4 C Pulse Rate 56 L 54 L 53 L Respiratory Rate 17 18 Blood Pressure 131/50 L 116/48 L 128/49 L Pulse Oximetry 99 100 Oxygen Delivery Oxygen Flow Rate Fraction of Inspired Oxygen 03/30/25 15:15 03/30/25 15:30 03/30/25 15:45 Temperature Pulse Rate 53 L 54 L 56 L Respiratory Rate Blood Pressure 121/45 L 124/52 L 134/83 Pulse Oximetry Oxygen Delivery Oxygen Flow Rate Fraction of Inspired Oxygen 03/30/25 16:00 03/30/25 16:00 03/30/25 16:00 Temperature 36.6 C Pulse Rate 53 L 62 Respiratory Rate 19 Blood Pressure 119/43 L 119/43 L Pulse Oximetry 100 98 Oxygen Delivery Room Air Oxygen Flow Rate Fraction of Inspired Oxygen 03/30/25 16:00 03/30/25 16:15 03/30/25 16:30 Temperature Pulse Rate 62 55 L 56 L Respiratory Rate Blood Pressure 124/53 L 114/40 L Pulse Oximetry Oxygen Delivery Oxygen Flow Rate Fraction of Inspired Oxygen 03/30/25 16:45 03/30/25 17:00 03/30/25 17:15 Temperature Pulse Rate 68 59 L 54 L Respiratory Rate Blood Pressure 126/40 L 122/48 L 120/45 L Pulse Oximetry Oxygen Delivery Oxygen Flow Rate Fraction of Inspired Oxygen 03/30/25 17:30 03/30/25 17:45 03/30/25 18:00 Temperature Pulse Rate 63 57 L 76 Respiratory Rate Blood Pressure 122/47 L 104/67 122/50 L Pulse Oximetry Oxygen Delivery Oxygen Flow Rate Fraction of Inspired Oxygen 03/30/25 18:00 03/30/25 18:00 03/30/25 18:15 Temperature Pulse Rate 57 L 67 59 L Respiratory Rate 20 Blood Pressure 122/50 L 120/49 L Pulse Oximetry 98 Oxygen Delivery Oxygen Flow Rate Fraction of Inspired Oxygen 03/30/25 18:30 03/30/25 18:56 03/30/25 19:00 Temperature 36.6 C Pulse Rate 65 61 64 Respiratory Rate 16 Blood Pressure 118/47 L 123/48 L Pulse Oximetry 99 Oxygen Delivery Oxygen Flow Rate Fraction of Inspired Oxygen 03/30/25 19:59 03/30/25 20:00 03/30/25 20:00 Temperature 37.1 C Pulse Rate 61 63 Respiratory Rate 20 16 Blood Pressure 119/49 L Pulse Oximetry 96 97 Oxygen Delivery Room Air Room Air Oxygen Flow Rate Fraction of Inspired Oxygen 21 03/30/25 20:00 03/30/25 22:00 03/30/25 22:00 Temperature Pulse Rate 70 72 72 Respiratory Rate 25 H Blood Pressure 117/46 L Pulse Oximetry 93 Oxygen Delivery Oxygen Flow Rate Fraction of Inspired Oxygen 03/30/25 22:20 03/30/25 22:39 03/31/25 00:00 Temperature Pulse Rate 55 L Respiratory Rate 21 H Blood Pressure Pulse Oximetry 93 95 Oxygen Delivery BiPAP Room Air Room Air Oxygen Flow Rate Fraction of Inspired Oxygen 03/31/25 00:00 03/31/25 00:00 03/31/25 01:04 Temperature 36.7 C Pulse Rate 66 61 56 L Respiratory Rate 25 H Blood Pressure 125/45 L Pulse Oximetry 94 95 Oxygen Delivery Room Air Oxygen Flow Rate Fraction of Inspired Oxygen 03/31/25 02:00 03/31/25 02:00 03/31/25 04:00 Temperature Pulse Rate 64 64 Respiratory Rate 25 H Blood Pressure 148/52 H Pulse Oximetry 97 Oxygen Delivery Room Air Oxygen Flow Rate Fraction of Inspired Oxygen 03/31/25 04:00 03/31/25 04:00 03/31/25 06:00 Temperature 36.6 C Pulse Rate 66 76 65 Respiratory Rate 15 20 Blood Pressure 106/49 L 140/55 L Pulse Oximetry 98 97 Oxygen Delivery Oxygen Flow Rate Fraction of Inspired Oxygen 03/31/25 06:00 Temperature Pulse Rate 65 Respiratory Rate Blood Pressure Pulse Oximetry Oxygen Delivery Oxygen Flow Rate Fraction of Inspired Oxygen Intake/Output Intake/Output: Intake & Output 03/28/25 03/29/25 03/30/25 03/31/25 23:59 23:59 23:59 23:59 Intake Total 990 297.9 680 100 Output Total 0 2000 0 Balance 990 297.9 -1320 100 Meds/Results Medications: Active Medications Generic Name Dose Route Start Last Admin Trade Name Freq PRN Reason Stop Dose Admin Acetaminophen 650 mg 03/28/25 14:00 03/31/25 05:22 Acetaminophen 325 Mg Tablet PO 650 mg Q4H PRN Administration Mild Pain (1-3) or Fever Aspirin 81 mg 03/30/25 19:15 03/31/25 09:05 Aspirin 81 Mg Chewable Tablet PO 81 mg DAILY@0800 THREESE Administration Atorvastatin Calcium 40 mg 03/28/25 18:00 03/30/25 19:59 Atorvastatin 40 Mg Tablet PO 40 mg QPM THREESE Administration Atropine Sulfate 0.4 mg 03/28/25 22:41 Atropine Sulfate 0.4 Mg/Ml Vial IV PUSH ONCE PRN Bradycardia Clopidogrel Bisulfate 75 mg 03/30/25 19:15 03/31/25 09:05 Clopidogrel Bisulfate 75 Mg Tablet PO 75 mg QAM THERESE Administration Dextrose 12.5 gm 03/28/25 16:45 03/30/25 10:53 Dextrose 50% 25 Gm/50 Ml Syringe IV PUSH 12.5 gm PRN PRN Administration Hypoglycemia Protocol Diclofenac Sodium 1 applic 03/28/25 16:24 Diclofenac Sodium 1% 100 Gm Gel (*Bkc) TOPICAL QID PRN discomfort Glucagon 1 mg 03/28/25 16:45 Glucagon For Inj 1 Mg Vial IM PRN PRN Hypoglycemia Protocol Glucose 15 gm 03/28/25 16:45 Glucose Oral Gel 15 Gm Of Glucse In 37.5 Gm Tube PO PRN PRN Hypoglycemia Protocol Dextrose 1,000 mls @ 100 mls/hr 03/28/25 16:45 Dextrose 5% 1,000 Ml IVPB PRN PRN Hypoglycemia Protocol Dopamine HCl/Dextrose 400 mg in 250 mls @ 0 mls/hr 03/29/25 01:00 03/30/25 19:00 Dopamine 400 Mg/D5w 250 Ml IV CONT Infused .Q0M THERESE Titration Protocol Albumin Human 50 mls @ 999 mls/hr 03/30/25 01:36 Albutein IVPB 04/29/25 01:35 Q10M PRN HYPOTENSION Meropenem 500 mg/ Sodium 100 mls @ 200 mls/hr 03/30/25 21:00 03/30/25 20:32 Chloride IVPB Infused QHS THERESE Infusion Insulin Aspart 2 - 5 units 03/28/25 17:00 03/31/25 09:04 Insulin Aspart (*Bkc) 100 Units/Ml SUB-Q Not Given TIDWM [facility] Protocol Insulin Glargine 8 units 03/28/25 21:00 03/29/25 20:45 Insulin Glargine (*Bkc) 100 Units/Ml 0.15 units/kg (8 units) Not Given On Hold: 03/30/25 10:09 SUB-Q HS THERESE Pantoprazole Sodium 40 mg 03/29/25 21:00 03/31/25 09:05 Pantoprazole Sodium Iv 40 Mg Vial IV PUSH 40 mg Q12HR THERESE Administration Polyethylene Glycol 17 gm 03/28/25 16:24 Polyethylene Glycol 3350 17 Gm Powd.Pack PO DAILY PRN Constipation Tobramycin Sulfate 1 drop 03/28/25 17:00 03/31/25 09:06 Tobramycin Sulfate 0.3% Ophth Soln 5 Ml EACH EYE 1 drop Q4HR THERESE Administration Vitamin B Complex/Folic Acid 1 cap 03/29/25 09:00 03/31/25 09:05 Vitamin B Cmplx/Vit C/Folic Ac 1 Capsule PO 1 cap DAILY THERESE Administration Radiology Results: ITS Impressions Abdomen/Pelvis CT 03/28/25 12:11 IMPRESSION: 1. Colitis. Likely infectious or inflammatory but given severe atherosclerotic disease, ischemic remains possible. Recommend correlation with lactate. Head CT 03/28/25 17:58 Impression: 1.No acute intracranial abnormality. Chest X-Ray 03/29/25 11:20 IMPRESSION: 1. Developing interstitial pulmonary edema. Labs Labs: Laboratory Results - last 24 hr 03/30/25 03/30/25 03/30/25 09:07 10:41 11:10 WBC RBC Hgb Hct MCV MCH MCHC RDW Plt Count MPV Sodium Potassium Chloride Carbon Dioxide Anion Gap BUN Creatinine Estim Creat Clear Calc Estimated GFR Glucose POC Capillary Glucose 77 67 113 H Calcium Phosphorus Magnesium Total Bilirubin AST ALT Alkaline Phosphatase Total Protein Albumin 03/30/25 03/30/25 03/31/25 11:43 20:01 04:11 WBC 6.3 RBC 2.80 L Hgb 8.1 L Hct 27.0 L MCV 96.4 MCH 28.9 MCHC 30.0 L RDW 22.5 H Plt Count 171 MPV 10.8 H Sodium 133 L Potassium 3.5 Chloride 98 Carbon Dioxide 28 Anion Gap 7 BUN 23 H D Creatinine 2.94 H Estim Creat Clear Calc Not Reportable Estimated GFR 15 L Glucose 213 H POC Capillary Glucose 100 163 H Calcium 8.1 L Phosphorus 2.7 Magnesium 2.0 Total Bilirubin 0.6 AST 35 ALT 21 Alkaline Phosphatase 168 H Total Protein 5.6 L Albumin 3.3 L 03/31/25 08:06 WBC RBC Hgb Hct MCV MCH MCHC RDW Plt Count MPV Sodium Potassium Chloride Carbon Dioxide Anion Gap BUN Creatinine Estim Creat Clear Calc Estimated GFR Glucose POC Capillary Glucose 196 H Calcium Phosphorus Magnesium Total Bilirubin AST ALT Alkaline Phosphatase Total Protein Albumin
--- NOTE | 2025-03-31 10:20 | PM.PNNEP ---
Progress Note: A&P Assessment and Plan (1) End stage renal disease: Code(s): N18.6 - End stage renal disease Status: Chronic Assessment and Plan: HD tomorrow continue M/W/F dialysis schedule while hospitalized follow electrolytes, volume status, and clearance (2) Upper GI bleed: Code(s): K92.2 - Gastrointestinal hemorrhage, unspecified Status: Acute Assessment and Plan: suspected on admission low H/H noted on presentation in association with abdominal pain known history of gastric ulcer CT abdomen pelvis negative for any perforation PRBC transfusion per protocol GI recommendations noted: EGD (on 03/30): normal; no evidence of bleeding lesions (3) Bradycardia: Code(s): R00.1 - Bradycardia, unspecified Status: Acute Assessment and Plan: slow Afib with bradycardia notably worse with rest/sleep and better when awake off dopamine gtt Cardiology recommendations noted (4) Paroxysmal atrial fibrillation: Code(s): I48.0 - Paroxysmal atrial fibrillation Status: Acute Assessment and Plan: rate controlled no anticoagulation due to history of gastric ulcer/GI bleed and is s/p left atrial appendage occlusion device (5) Colitis: Code(s): K52.9 - Noninfective gastroenteritis and colitis, unspecified Status: Inactive Assessment and Plan: as noted by admission CT abdomen + pelvis empiric antibiotics follow culture data (6) Anemia: Qualifiers: Anemia type: unspecified type Qualified Code(s): D64.9 - Anemia, unspecified Code(s): D64.9 - Anemia, unspecified Status: Chronic Assessment and Plan: partly related to ESRD ? GI loss -- negative EGD noted Epogen with HD PRBC transfusion per protocol follow trend of H/H (7) Peripheral arterial disease: Code(s): I73.9 - Peripheral vascular disease, unspecified Status: Acute Assessment and Plan: known history s/p intervention at [facility] recently prior to admission was on plavix and ASA plavix on hold (8) Type 2 diabetes mellitus: Qualifiers: Diabetes mellitus complication status: without complication Diabetes mellitus remote computer terminal operator insulin use: without remote computer terminal operator use Qualified Code(s): E11.9 - Type 2 diabetes mellitus without complications Code(s): E11.9 - Type 2 diabetes mellitus without complications Status: Chronic Assessment and Plan: follow accuchecks glycemic control per frame stripper/hospitalist Will continue to follow. Subjective Date/time seen: 03/31/25 10:20 Interval history: Follow-up for end stage renal disease on hemodialysis. Tolerated dialysis yesterday afternoon without any issues or problems; s/p EGD yesterday without any significant findings; blood pressure and heart have been stable at this time; RLE pain controlled; no other issues/events overnight or earlier this morning. Exam Narrative: General: frail and elderly female in NAD Heart: normal S1 and S2; no rub Lungs: clear anteriorly; decreased at bases Abdomen: soft, nontender, nondistended, positive bowel sounds Extremities: no cyanosis or clubbing; no edema Skin: warm and intact Objective Data Vital Signs Vital Signs: Vital Signs Temp Pulse Resp BP Pulse Ox O2 Del Method FiO2 03/31/25 10:00 74 24 H 138/61 98 03/31/25 08:00 98 F 79 24 H 151/56 H 96 03/31/25 08:00 79 03/31/25 08:00 Room Air 03/31/25 06:00 65 03/31/25 06:00 65 20 140/55 L 97 03/31/25 04:00 97.9 F 76 15 106/49 L 98 03/31/25 04:00 66 03/31/25 04:00 Room Air 03/31/25 02:00 64 25 H 148/52 H 97 03/31/25 02:00 64 03/31/25 01:04 56 L 95 Room Air 03/31/25 00:00 61 03/31/25 00:00 98.1 F 66 25 H 125/45 L 94 03/31/25 00:00 Room Air 03/30/25 22:39 95 Room Air 03/30/25 22:20 55 L 21 H 93 BiPAP 03/30/25 22:00 72 25 H 117/46 L 93 03/30/25 22:00 72 03/30/25 20:00 70 03/30/25 20:00 Room Air 03/30/25 20:00 98.7 F 63 16 119/49 L 97 03/30/25 19:59 61 20 96 Room Air 21 03/30/25 19:00 64 03/30/25 18:56 97.8 F 61 16 123/48 L 99 03/30/25 18:30 65 118/47 L 03/30/25 18:15 59 L 120/49 L 03/30/25 18:00 67 03/30/25 18:00 57 L 20 122/50 L 98 03/30/25 18:00 76 122/50 L 03/30/25 17:45 57 L 104/67 03/30/25 17:30 63 122/47 L 03/30/25 17:15 54 L 120/45 L 03/30/25 17:00 59 L 122/48 L 03/30/25 16:45 68 126/40 L 03/30/25 16:30 56 L 114/40 L 03/30/25 16:15 55 L 124/53 L 03/30/25 16:00 62 03/30/25 16:00 97.9 F 62 19 119/43 L 98 03/30/25 16:00 100 Room Air 03/30/25 16:00 53 L 119/43 L 03/30/25 15:45 56 L 134/83 03/30/25 15:30 54 L 124/52 L 03/30/25 15:15 53 L 121/45 L 03/30/25 15:09 53 L 128/49 L 03/30/25 14:56 97.6 F 54 L 18 116/48 L 100 03/30/25 14:00 56 L 17 131/50 L 99 03/30/25 14:00 61 Intake/Output Intake/Output: Intake & Output 03/28/25 03/29/25 03/30/25 03/31/25 23:59 23:59 23:59 23:59 Intake Total 990 297.9 680 460 Output Total 0 2000 0 Balance 990 297.9 -1320 460 Meds/Results Medications: Active Medications Generic Name Dose Route Start Last Admin Trade Name Emily PRN Reason Stop Dose Admin Acetaminophen 650 mg 03/28/25 14:00 03/31/25 05:22 Acetaminophen 325 Mg Tablet PO 650 mg Q4H PRN Administration Mild Pain (1-3) or Fever Aspirin 81 mg 03/30/25 19:15 03/31/25 09:05 Aspirin 81 Mg Chewable Tablet PO 81 mg DAILY@0800 [facility] Administration Atorvastatin Calcium 40 mg 03/28/25 18:00 03/30/25 19:59 Atorvastatin 40 Mg Tablet PO 40 mg QPM THERESE Administration Atropine Sulfate 0.4 mg 03/28/25 22:41 Atropine Sulfate 0.4 Mg/Ml Vial IV PUSH ONCE PRN Bradycardia Clopidogrel Bisulfate 75 mg 03/30/25 19:15 03/31/25 09:05 Clopidogrel Bisulfate 75 Mg Tablet PO 75 mg QAM THERESE Administration Dextrose 12.5 gm 03/28/25 16:45 03/30/25 10:53 Dextrose 50% 25 Gm/50 Ml Syringe IV PUSH 12.5 gm PRN PRN Administration Hypoglycemia Protocol Diclofenac Sodium 1 applic 03/28/25 16:24 Diclofenac Sodium 1% 100 Gm Gel (*Bkc) TOPICAL QID PRN discomfort Glucagon 1 mg 03/28/25 16:45 Glucagon For Inj 1 Mg Vial IM PRN PRN Hypoglycemia Protocol Glucose 15 gm 03/28/25 16:45 Glucose Oral Gel 15 Gm Of Glucse In 37.5 Gm Tube PO PRN PRN Hypoglycemia Protocol Dextrose 1,000 mls @ 100 mls/hr 03/28/25 16:45 Dextrose 5% 1,000 Ml IVPB PRN PRN Hypoglycemia Protocol Dopamine HCl/Dextrose 400 mg in 250 mls @ 0 mls/hr 03/29/25 01:00 03/30/25 19:00 Dopamine 400 Mg/D5w 250 Ml IV CONT Infused .Q0M THERESE Titration Protocol Albumin Human 50 mls @ 999 mls/hr 03/30/25 01:36 Albutein IVPB 04/29/25 01:35 Q10M PRN HYPOTENSION Insulin Aspart 2 - 5 units 03/28/25 17:00 03/31/25 12:05 Insulin Aspart (*Bkc) 100 Units/Ml SUB-Q 3 units TIDWM THERESE Administration Protocol Insulin Glargine 8 units 03/28/25 21:00 03/29/25 20:45 Insulin Glargine (*Bkc) 100 Units/Ml 0.15 units/kg (8 units) Not Given On Hold: 03/30/25 10:09 SUB-Q HS THERESE Pantoprazole Sodium 40 mg 03/29/25 21:00 03/31/25 09:05 Pantoprazole Sodium Iv 40 Mg Vial IV PUSH 40 mg Q12HR THERESE Administration Polyethylene Glycol 17 gm 03/28/25 16:24 Polyethylene Glycol 3350 17 Gm Powd.Pack PO DAILY PRN Constipation Tobramycin Sulfate 1 drop 03/28/25 17:00 03/31/25 12:05 Tobramycin Sulfate 0.3% Ophth Soln 5 Ml EACH EYE 1 drop Q4HR THERESE Administration Vitamin B Complex/Folic Acid 1 cap 03/29/25 09:00 03/31/25 09:05 Vitamin B Cmplx/Vit C/Folic Ac 1 Capsule PO 1 cap DAILY THERESE Administration Radiology Results: ITS Impressions Abdomen/Pelvis CT 03/28/25 12:11 IMPRESSION: 1. Colitis. Likely infectious or inflammatory but given severe atherosclerotic disease, ischemic remains possible. Recommend correlation with lactate. Head CT 03/28/25 17:58 Impression: 1.No acute intracranial abnormality. Chest X-Ray 03/29/25 11:20 IMPRESSION: 1. Developing interstitial pulmonary edema. Labs Labs: Laboratory Tests 03/31/25 04:11 03/31/25 04:11 Calcium 8.1 L Phosphorus 2.7 Magnesium 2.0 Total Bilirubin 0.6 AST 35 ALT 21 Alkaline Phosphatase 168 H Total Protein 5.6 L Albumin 3.3 L
[2025-03-31] MEDS: INSULIN ASPART (*BKC) 100 UNITS/ML SUB-Q ×2 (12:05→16:56)
[2025-03-31] MEDS: ATORVASTATIN 40 MG TABLET PO (16:57)
[2025-03-31] MEDS: INSULIN GLARGINE (*BKC) 100 UNITS/ML 8 UNITS SUB-Q (20:48)
[2025-04-01] VITALS (21 sets, daily range): BP systolic 130–181; BP diastolic 59–102; PULSE 62–90; RESP 20–26; TEMP 36.7–37; O2SAT 95–99
[2025-04-01] MEDS: TOBRAMYCIN SULFATE 0.3% OPHTH SOLN 5 ML 1 DROP EACH EYE ×4 (01:30→14:22)
[2025-04-01 03:30] LABS: Hematocrit 27.9 % (37.0-47.0); Hemoglobin 8.6 g/dL (12.0-15.0); Immature Granulocyte Percent A 0.9 % (0-0.5); Lymphocytes Absolute Auto 1.69 K/mm3 (0.9-3.2); Mean Corpuscular HGB Conc 30.8 g/dl (32-36); Mean Corpuscular Hemoglobin 29.5 pg (26-34); Mean Corpuscular Volume 95.5 fl (80-100); Nucleated Red Blood Cells Absolute Auto 0.000 K/mm3 (0.0-0.012); Nucleated Red Blood Cells Perc 0.0 % (0.0-0.2); Platelet Count Result 190 k/mm3 (150-375); Red Blood Count 2.92 M/mm3 (4.2-5.4); White Blood Count 7.8 K/mm3 (4.5-10.0)
[2025-04-01 04:02] LABS: Alanine Aminotransferase 19 U/L (6-35); Albumin Level 3.3 g/dL (3.5-5.1); Alkaline Phosphatase 133 U/L (38-126); Anion Gap 9 mmol/L (4-12); Aspartate Amino Transferase 27 U/L (14-36); Bilirubin,Total 0.5 mg/dL (0.2-1.3); Blood Urea Nitrogen 37 mg/dL (7-17); Calcium 8.0 mg/dL (8.4-10.2); Carbon Dioxide 27 mmol/L (22-30); Chloride 99 mmol/L (98-107); Estimated Glomerular Filt Rate 9; Glucose 164 mg/dL (65-110); Magnesium 1.9 mg/dL (1.6-2.3); Potassium 3.4 mmol/L (3.4-5.0); Sodium 135 mmol/L (137-145); Total Protein 5.6 g/dL (6.3-8.2)
[2025-04-01] MEDS: VITAMIN B CMPLX/VIT C/FOLIC AC 1 CAPSULE 1 CAP PO (08:14)
[2025-04-01] MEDS: CLOPIDOGREL BISULFATE 75 MG TABLET PO (08:14)
[2025-04-01] MEDS: PANTOPRAZOLE SODIUM IV 40 MG VIAL IV PUSH (08:14)
[2025-04-01] MEDS: ASPIRIN 81 MG CHEWABLE TABLET PO (08:14)
[2025-04-01] MEDS: LIDOCAINE/PRILOCAINE CREAM 2.5-2.5% TUBE 1 EACH TOPICAL (08:14)
--- NOTE | 2025-04-01 09:09 | P.PNIM_ITS ---
Progress Note: A&P Assessment and Plan (1) Paroxysmal atrial fibrillation: Code(s): I48.0 - Paroxysmal atrial fibrillation Status: Acute Assessment and Plan: Currently in AFib. Rate is controlled She is not a candidate for anticoagulation due to history of GI bleed gastric ulcer and current GI bleed -continue aspirin 81 mg and clopidogrel (2) Bradycardia: Code(s): R00.1 - Bradycardia, unspecified Status: Acute Assessment and Plan: Patient has slow AFib and had episode of bradycardia on the floor and was transferred to ICU. On review patient does have pause is 2-3 second duration Heart rate is lower when she is sleeping and improves as she is more awake. -OFF DOPAMINE -discussed with Cardiology,Dr. Gutierrez stated that Dr. Rodriguez now evaluated the patient for pacemaker and does not think that she needs it right now as she is high risk. - Echocardiogram done in 08/2024 reviewed and showed EF of 65% with concentric left ventricle thickness and diastolic dysfunction. She also had mild aortic stenosis along with moderate pulmonary hypertension. At this time her blood pressure is stable. Monitor (3) Hyperlipidemia: Code(s): E78.5 - Hyperlipidemia, unspecified Status: Chronic Assessment and Plan: On atorvastatin (4) Upper GI bleed: Code(s): K92.2 - Gastrointestinal hemorrhage, unspecified Status: Acute Assessment and Plan: Patient has history of gastric ulcer and gastritis and now presented with complaints and hemoglobin level consistent with upper GI bleed CT abdomen pelvis negative for any perforation. IV Protonix q.12 hours -hemoglobin have been stable Patient was transfused 2 units of PRBC at the time of admission 03/30/2025: EGD was done: Normally EGD to depth of insertion (5) Upper abdominal pain: Code(s): R10.10 - Upper abdominal pain, unspecified Status: Acute Assessment and Plan: Epigastric pain has resolved. - Normal lipase -CT scan did not show any evidence off pancreatitis although it did show colitis. (6) ESRD (end stage renal disease) on dialysis: Code(s): N18.6 - End stage renal disease; Z99.2 - Dependence on renal dialysis Status: Chronic Assessment and Plan: Patient with end-stage renal disease on dialysis -dialysis per Nephrology 03/30: And dialysis with 2000 mL in fluid removal, tolerated well (7) Anemia: Code(s): D64.9 - Anemia, unspecified Status: Acute Assessment and Plan: Multifactorial anemia likely exacerbated with GI bleed. See above -Epogen per Nephrology (8) Colitis: Code(s): K52.9 - Noninfective gastroenteritis and colitis, unspecified Status: Inactive Assessment and Plan: CT abdomen pelvis suggestive of colitis. Continue empiric broad-spectrum antibiotics -meropenem Unlikely to be ischemic as lactic acid level was normal although patient has significant peripheral arterial disease Plan DVT prophylaxis -SCDs Stress ulcer prophylaxis -PPI IV q.12 hours Nutrition -diabetic consistent carb diet, heart healthy diet, renal diet Code Status - Full Code Due to a high probability of clinically significant, life threatening deterioration, the patient required my highest level of preparedness to intervene emergently and I personally spent this critical care time directly and personally managing the patient. This critical care time included obtaining a history; examining the patient; pulse oximetry; ordering and review of studies; arranging urgent treatment with development of a management plan; evaluation of patient's response to treatment; frequent reassessment; and discussions with other providers. It was exclusive of separately billable procedures and treating other patients and teaching time. Please see Assessment and Plan section and the rest of the note for further information on patient assessment and treatment This dictation may have been done utilizing a voice recognition system. Attempts have been made to correct errors. However, there may be uncorrected grammatical, spelling, and recognitions errors present. Subjective Date/time seen: 04/01/25 09:09 Interval history: Reason for consult:? GI bleed, bradycardia with pause, end-stage renal disease on hemodialysis, peripheral arterial disease status post recent surgery at [facility] with stent placement to the right lower extremity 03/30/2025: EGD: Normal EGD attempt of insertion. 04/01/2025: Patient being seen for hospitalist team -no issues overnight, denies any chest pain, shortness a will, abdominal pain, nausea, vomiting. Tolerating p.o. diet. Heart rates have been stable overnight, adequate blood pressures Review of Systems Review of Systems: All systems reviewed & are unremarkable except as noted in HPI and below (HPI) Exam 2 Narrative: General: Pleasant but Cachectic old female who looks frail and malnourished. HEENT: Pupils equal and reactive, sclera is clear, moist oral mucosa Lungs/Chest: Trachea central Clear BS B/L, No crackles or wheezing. Cardiac: Irregular rate and rhythm rate controlled, no murmurs Circulation: Both dorsalis pedis are palpable weak. Feet are warm. Abdomen: Soft, nontender, nondistended, normoactive bowel sounds Extremities: No clubbing, cyanosis or edema. 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 She has a wound on right big toe which is under dressing, she has a fistula in both arms left is nonfunctional. Right fistula has a thrill Neurologic: Follows commands. Moves all 4 extremities PERRL AO x3 Skin: No Rash Psych: Normal mentation and affect Objective Data Vital Signs Vital Signs: Vital Signs - 24 hr 03/31/25 10:00 03/31/25 14:00 03/31/25 20:00 Temperature 97.4 F L Pulse Rate 74 68 Respiratory Rate 24 H 21 H Blood Pressure 138/61 113/89 Pulse Oximetry 98 98 Oxygen Delivery Room Air 03/31/25 20:00 03/31/25 20:25 04/01/25 02:24 Temperature 98.3 F Pulse Rate 73 Respiratory Rate 24 H Blood Pressure 158/54 H Pulse Oximetry 100 99 Oxygen Delivery Room Air Room Air 04/01/25 04:00 04/01/25 07:37 Temperature 98.2 F 98.1 F Pulse Rate 73 81 Respiratory Rate 26 H 20 Blood Pressure 141/88 H 168/84 H Pulse Oximetry 98 99 Oxygen Delivery Intake/Output Intake/Output: Intake & Output 03/29/25 03/30/25 03/31/25 04/01/25 23:59 23:59 23:59 23:59 Intake Total 297.9 680 1060 100 Output Total 0 2000 0 Balance 297.9 -1320 1060 100 Meds/Results Medications: Active Medications Generic Name Dose Route Start Last Admin Trade Name Freq PRN Reason Stop Dose Admin Acetaminophen 650 mg 03/28/25 14:00 03/31/25 05:22 Acetaminophen 325 Mg Tablet PO 650 mg Q4H PRN Administration Mild Pain (1-3) or Fever Aspirin 81 mg 03/30/25 19:15 04/01/25 08:14 Aspirin 81 Mg Chewable Tablet PO 81 mg DAILY@0800 THERESE Administration Atorvastatin Calcium 40 mg 03/28/25 18:00 03/31/25 16:57 Atorvastatin 40 Mg Tablet PO 40 mg QPM THERESE Administration Atropine Sulfate 0.4 mg 03/28/25 22:41 Atropine Sulfate 0.4 Mg/Ml Vial IV PUSH ONCE PRN Bradycardia Clopidogrel Bisulfate 75 mg 03/30/25 19:15 04/01/25 08:14 Clopidogrel Bisulfate 75 Mg Tablet PO 75 mg QAM THERESE Administration Dextrose 12.5 gm 03/28/25 16:45 03/30/25 10:53 Dextrose 50% 25 Gm/50 Ml Syringe IV PUSH 12.5 gm PRN PRN Administration Hypoglycemia Protocol Diclofenac Sodium 1 applic 03/28/25 16:24 Diclofenac Sodium 1% 100 Gm Gel (*Bkc) TOPICAL QID PRN discomfort Epoetin Son-epbx 20,000 units 04/01/25 18:00 Epoetin Son-Epbx 20,000 Units/Ml Vial IV PUSH 04/01/25 18:01 ONCE ONE Glucagon 1 mg 03/28/25 16:45 Glucagon For Inj 1 Mg Vial IM PRN PRN Hypoglycemia Protocol Glucose 15 gm 03/28/25 16:45 Glucose Oral Gel 15 Gm Of Glucse In 37.5 Gm Tube PO PRN PRN Hypoglycemia Protocol Dextrose 1,000 mls @ 100 mls/hr 03/28/25 16:45 Dextrose 5% 1,000 Ml IVPB PRN PRN Hypoglycemia Protocol Albumin Human 50 mls @ 999 mls/hr 03/30/25 01:36 Albutein IVPB 04/29/25 01:35 Q10M PRN HYPOTENSION Insulin Aspart 2 - 5 units 03/28/25 17:00 04/01/25 07:39 Insulin Aspart (*Bkc) 100 Units/Ml SUB-Q Not Given TIDWM THERESE Protocol Insulin Glargine 10 units 04/01/25 21:00 Insulin Glargine (*Bkc) 100 Units/Ml SUB-Q HS [facility]END[facility] TO [facility] Lidocaine/Prilocaine 1 each 04/01/25 05:53 04/01/25 08:14 Lidocaine/Prilocaine Cream 2.5-2.5% Tube TOPICAL 1 each WITH DIALYSIS PRN Administration for dialysis Protocol Pantoprazole Sodium 40 mg 03/29/25 21:00 04/01/25 08:14 Pantoprazole Sodium Iv 40 Mg Vial IV PUSH 40 mg Q12HR THERESE Administration Polyethylene Glycol 17 gm 03/28/25 16:24 Polyethylene Glycol 3350 17 Gm Powd.Pack PO DAILY PRN Constipation Tobramycin Sulfate 1 drop 03/28/25 17:00 04/01/25 08:14 Tobramycin Sulfate 0.3% Ophth Soln 5 Ml EACH EYE 1 drop Q4HR THERESE Administration Vitamin B Complex/Folic Acid 1 cap 03/29/25 09:00 04/01/25 08:14 Vitamin B Cmplx/Vit C/Folic Ac 1 Capsule PO 1 cap DAILY THERESE Administration Radiology Results: ITS Impressions Abdomen/Pelvis CT 03/28/25 12:11 IMPRESSION: 1. Colitis. Likely infectious or inflammatory but given severe atherosclerotic disease, ischemic remains possible. Recommend correlation with lactate. Head CT 03/28/25 17:58 Impression: 1.No acute intracranial abnormality. Chest X-Ray 03/29/25 11:20 IMPRESSION: 1. Developing interstitial pulmonary edema. Labs Labs: Laboratory Results - last 24 hr 03/31/25 03/31/25 03/31/25 12:00 16:55 20:03 WBC RBC Hgb Hct MCV MCH MCHC RDW Plt Count MPV Immature Gran % (Auto) Neut % (Auto) Lymph % (Auto) [place] % (Auto) Eos % (Auto) Baso % (Auto) Lymph # (Auto) [place] # (Auto) Eos # (Auto) Baso # (Auto) Abs Immat Gran (auto) Absolute Neuts (auto) Absolute Nucleated RBC Nucleated RBC % Sodium Potassium Chloride Carbon Dioxide Anion Gap BUN Creatinine Estim Creat Clear Calc Estimated GFR Glucose POC Capillary Glucose 287 H 317 H 247 H Calcium Phosphorus Magnesium Total Bilirubin AST ALT Alkaline Phosphatase Total Protein Albumin 04/01/25 04/01/25 03:16 07:16 WBC 7.8 RBC 2.92 L Hgb 8.6 L Hct 27.9 L MCV 95.5 MCH 29.5 MCHC 30.8 L RDW 22.0 H Plt Count 190 MPV 10.8 H Immature Gran % (Auto) 0.9 H Neut % (Auto) 59.7 Lymph % (Auto) 21.8 [place] % (Auto) 14.8 H Eos % (Auto) 2.2 Baso % (Auto) 0.6 Lymph # (Auto) 1.69 [place] # (Auto) 1.2 H Eos # (Auto) 0.2 Baso # (Auto) 0.1 Abs Immat Gran (auto) 0.07 H Absolute Neuts (auto) 4.6 Absolute Nucleated RBC 0.000 Nucleated RBC % 0.0 Sodium 135 L Potassium 3.4 Chloride 99 Carbon Dioxide 27 Anion Gap 9 BUN 37 H D Creatinine 4.82 H Estim Creat Clear Calc Not Reportable Estimated GFR 9 L Glucose 164 H POC Capillary Glucose 159 H Calcium 8.0 L Phosphorus 3.4 Magnesium 1.9 Total Bilirubin 0.5 AST 27 ALT 19 Alkaline Phosphatase 133 H Total Protein 5.6 L Albumin 3.3 L Quality VTE Prophylaxis VTE prophylaxis: mechanical ordered
--- NOTE | 2025-04-01 10:58 | P.PNCA_ITS ---
Progress Note: A&P Assessment and Plan (1) Paroxysmal atrial fibrillation: Code(s): I48.0 - Paroxysmal atrial fibrillation Status: Acute (2) Bradycardia: Code(s): R00.1 - Bradycardia, unspecified Status: Acute (3) Peripheral arterial disease: Code(s): I73.9 - Peripheral vascular disease, unspecified Status: Acute (4) Hyperlipidemia: Code(s): E78.5 - Hyperlipidemia, unspecified Status: Chronic (5) Hypertension: Qualifiers: Hypertension type: unspecified Qualified Code(s): I10 - Essential (allison nanda) hypertension Code(s): I10 - Essential (primary) hypertension Status: Chronic (6) Severe claudication: Code(s): I73.9 - Peripheral vascular disease, unspecified Status: Acute (7) CAD (coronary artery disease): Code(s): I25.10 - Atherosclerotic heart disease of [place] coronary artery without angina pectoris Status: Acute (8) Elevated troponin: Code(s): R79.89 - Other specified abnormal findings of blood chemistry Status: Acute Plan Problem list: Bradycardia-resolved Paroxysmal atrial fibrillation status post left atrial appendage occlusion at [place] in 2018 Nonobstructive CAD-no chest pain; TTE in 08/2024 showed normal LVEF of 65%, mild AF, mild MR, mild TR, trace OK, moderate pulmonary hypertension (PASP 50 mm Hg) Elevated troponin- no chest pain; most likely secondary to demand supply mismatch due to acute anemia Hypertension-controlled Hyperlipidemia-on statin Acute GI bleed status post PRBC transfusion- GI following; hemoglobin 8.1 today Peripheral vascular disease status post recent PTCA at [facility] -laser arthrectomy of anterior tibial, balloon angioplasty of posterior tibial, following by laser arthrectomy and balloon angioplasty of dorsalis pedalis. Then [place] PTX stent to popliteal artery (03/19/25) -on aspirin and Plavix at presentation. have been resumed this am as no bleeding noted on EGD End-stage renal disease on dialysis Plan: Continue to monitor on telemetry. Rates are controlled in the 50s to 70s range. She is status post left atrial appendage occlusion and therefore no anticoagulation required Troponin was mildly elevated and mostly flat. She has no chest pain. Troponin elevation is most likely supply demand mismatch due to acute severe anemia. Can stop checking since troponin peaked and down trending EKG p.r.n. for any chest pain Asa and plavix resumed this am 03/31 as no bleeding noted on EGD. H&H is stable at this time Continue statin Start Voltaren cream for pain in the right foot Management of other medical problems per primary team will see prn. Stable CV when ok with others Subjective Date/time seen: 04/01/25 10:58 Interval history: Reason for encounter: Bradycardia, paroxysmal atrial fibrillation Relevant history: 79-year-old female with CAD, chronic atrial fibrillation status post left atrial appendage occlusion at [place] in 2019, hypertension, diabetes, end-stage renal disease on HD, peptic ulcer disease with bleeding gastric ulcers in the past, PVD, nonhealing ulcer on her right toe status post recent PTCA to right lower extremity at [place] was admitted with dark stools secondary to GI bleed. She was noted to have a hemoglobin of 5.9 at presentation and received 2 units PRBCs with improvement in hemoglobin to 7.8. She was reportedly bradycardic to the 40s and Cardiology was consulted for further recommendations. Interval history: Patient reports pain in her right foot and heel of intensity 03/18. She says she uses Voltaren cream at home for pain. No chest pain, shortness of breath, dizziness. Telemetry shows paroxysmal atrial fibrillation with rates in the 50s to 70s. 03/31/25: Patient is sitting up in bed, nurse at bedside. She is overall feeling well. No c/o any chest pain or shortness of breath. No reports of any bleeding. No dizziness or palpitations 04/01/25: Patient in HD at this time. She reports she is feeling well. No chest pain or pressure. No SOB. States RLE is less painful. Review of Systems Review of Systems: All systems reviewed & are unremarkable except as noted in HPI and below Exam Narrative: General: Alert oriented x3, no acute distress Neck: Supple, no JVD Chest: Bilaterally clear to auscultation, no rales or rhonchi Cardiac: S1, S2 +, irregularly irregular rhythm, no murmurs or rubs Extremities: No pedal edema, no skin rash. Drsg to rt heel Neurologic: Alert and oriented x3, no focal neurological deficits Objective Data Vital Signs Vital Signs: Vital Signs - 24 hr 03/31/25 14:00 03/31/25 20:00 03/31/25 20:00 Temperature 36.3 C L 36.8 C Pulse Rate 68 73 Respiratory Rate 21 H 24 H Blood Pressure 113/89 158/54 H Pulse Oximetry 98 100 Oxygen Delivery Room Air 03/31/25 20:25 04/01/25 02:24 04/01/25 04:00 Temperature 36.8 C Pulse Rate 73 Respiratory Rate 26 H Blood Pressure 141/88 H Pulse Oximetry 99 98 Oxygen Delivery Room Air Room Air 04/01/25 07:37 04/01/25 08:00 04/01/25 08:56 Temperature 36.7 C 36.9 C Pulse Rate 81 80 Respiratory Rate 20 20 Blood Pressure 168/84 H 155/65 H Pulse Oximetry 99 95 Oxygen Delivery Room Air 04/01/25 09:09 04/01/25 09:15 04/01/25 09:30 Temperature Pulse Rate 69 75 80 Respiratory Rate Blood Pressure 148/64 H 169/62 H 141/87 H Pulse Oximetry Oxygen Delivery 04/01/25 09:45 04/01/25 10:00 04/01/25 10:15 Temperature Pulse Rate 86 90 76 Respiratory Rate Blood Pressure 166/102 H 142/69 H 130/59 L Pulse Oximetry Oxygen Delivery 04/01/25 10:30 04/01/25 10:45 Temperature Pulse Rate 82 71 Respiratory Rate Blood Pressure 143/82 H 162/70 H Pulse Oximetry Oxygen Delivery Intake/Output Intake/Output: Intake & Output 03/29/25 03/30/25 03/31/25 04/01/25 23:59 23:59 23:59 23:59 Intake Total 297.9 680 1060 220 Output Total 0 2000 0 Balance 297.9 -1320 1060 220 Meds/Results Medications: Active Medications Generic Name Dose Route Start Last Admin Trade Name Freq PRN Reason Stop Dose Admin Acetaminophen 650 mg 03/28/25 14:00 03/31/25 05:22 Acetaminophen 325 Mg Tablet PO 650 mg Q4H PRN Administration Mild Pain (1-3) or Fever Aspirin 81 mg 03/30/25 19:15 04/01/25 08:14 Aspirin 81 Mg Chewable Tablet PO 81 mg DAILY@0800 [facility] Administration Atorvastatin Calcium 40 mg 03/28/25 18:00 03/31/25 16:57 Atorvastatin 40 Mg Tablet PO 40 mg QPM THERESE Administration Atropine Sulfate 0.4 mg 03/28/25 22:41 Atropine Sulfate 0.4 Mg/Ml Vial IV PUSH ONCE PRN Bradycardia Clopidogrel Bisulfate 75 mg 03/30/25 19:15 04/01/25 08:14 Clopidogrel Bisulfate 75 Mg Tablet PO 75 mg QAM THERESE Administration Dextrose 12.5 gm 03/28/25 16:45 03/30/25 10:53 Dextrose 50% 25 Gm/50 Ml Syringe IV PUSH 12.5 gm PRN PRN Administration Hypoglycemia Protocol Diclofenac Sodium 1 applic 03/28/25 16:24 Diclofenac Sodium 1% 100 Gm Gel (*Bkc) TOPICAL QID PRN discomfort Epoetin Son-epbx 20,000 units 04/01/25 18:00 Epoetin Son-Epbx 20,000 Units/Ml Vial IV PUSH 04/01/25 18:01 ONCE ONE Glucagon 1 mg 03/28/25 16:45 Glucagon For Inj 1 Mg Vial IM PRN PRN Hypoglycemia Protocol Glucose 15 gm 03/28/25 16:45 Glucose Oral Gel 15 Gm Of Glucse In 37.5 Gm Tube PO PRN PRN Hypoglycemia Protocol Dextrose 1,000 mls @ 100 mls/hr 03/28/25 16:45 Dextrose 5% 1,000 Ml IVPB PRN PRN Hypoglycemia Protocol Albumin Human 50 mls @ 999 mls/hr 03/30/25 01:36 Albutein IVPB 04/29/25 01:35 Q10M PRN HYPOTENSION Insulin Aspart 2 - 5 units 03/28/25 17:00 04/01/25 07:39 Insulin Aspart (*Bkc) 100 Units/Ml SUB-Q Not Given TIDWM [facility] Protocol Insulin Glargine 10 units 04/01/25 21:00 Insulin Glargine (*Bkc) 100 Units/Ml SUB-Q HS [facility] Lidocaine/Prilocaine 1 each 04/01/25 05:53 04/01/25 08:14 Lidocaine/Prilocaine Cream 2.5-2.5% Tube TOPICAL 1 each WITH DIALYSIS PRN Administration for dialysis Protocol Pantoprazole Sodium 40 mg 03/29/25 21:00 04/01/25 08:14 Pantoprazole Sodium Iv 40 Mg Vial IV PUSH 40 mg Q12HR THERESE Administration Polyethylene Glycol 17 gm 03/28/25 16:24 Polyethylene Glycol 3350 17 Gm Powd.Pack PO DAILY PRN Constipation Tobramycin Sulfate 1 drop 03/28/25 17:00 04/01/25 08:14 Tobramycin Sulfate 0.3% Ophth Soln 5 Ml EACH EYE 1 drop Q4HR THERESE Administration Vitamin B Complex/Folic Acid 1 cap 03/29/25 09:00 04/01/25 08:14 Vitamin B Cmplx/Vit C/Folic Ac 1 Capsule PO 1 cap DAILY THERESE Administration Radiology Results: ITS Impressions Abdomen/Pelvis CT 03/28/25 12:11 IMPRESSION: 1. Colitis. Likely infectious or inflammatory but given severe atherosclerotic disease, ischemic remains possible. Recommend correlation with lactate. Head CT 03/28/25 17:58 Impression: 1.No acute intracranial abnormality. Chest X-Ray 03/29/25 11:20 IMPRESSION: 1. Developing interstitial pulmonary edema. Labs Labs: Laboratory Results - last 24 hr 03/31/25 03/31/25 03/31/25 12:00 16:55 20:03 WBC RBC Hgb Hct MCV MCH MCHC RDW Plt Count MPV Immature Gran % (Auto) Neut % (Auto) Lymph % (Auto) [place] % (Auto) Eos % (Auto) Baso % (Auto) Lymph # (Auto) [place] # (Auto) Eos # (Auto) Baso # (Auto) Abs Immat Gran (auto) Absolute Neuts (auto) Absolute Nucleated RBC Nucleated RBC % Sodium Potassium Chloride Carbon Dioxide Anion Gap BUN Creatinine Estim Creat Clear Calc Estimated GFR Glucose POC Capillary Glucose 287 H 317 H 247 H Calcium Phosphorus Magnesium Total Bilirubin AST ALT Alkaline Phosphatase Total Protein Albumin 04/01/25 04/01/25 03:16 07:16 WBC 7.8 RBC 2.92 L Hgb 8.6 L Hct 27.9 L MCV 95.5 MCH 29.5 MCHC 30.8 L RDW 22.0 H Plt Count 190 MPV 10.8 H Immature Gran % (Auto) 0.9 H Neut % (Auto) 59.7 Lymph % (Auto) 21.8 [place] % (Auto) 14.8 H Eos % (Auto) 2.2 Baso % (Auto) 0.6 Lymph # (Auto) 1.69 [place] # (Auto) 1.2 H Eos # (Auto) 0.2 Baso # (Auto) 0.1 Abs Immat Gran (auto) 0.07 H Absolute Neuts (auto) 4.6 Absolute Nucleated RBC 0.000 Nucleated RBC % 0.0 Sodium 135 L Potassium 3.4 Chloride 99 Carbon Dioxide 27 Anion Gap 9 BUN 37 H D Creatinine 4.82 H Estim Creat Clear Calc Not Reportable Estimated GFR 9 L Glucose 164 H POC Capillary Glucose 159 H Calcium 8.0 L Phosphorus 3.4 Magnesium 1.9 Total Bilirubin 0.5 AST 27 ALT 19 Alkaline Phosphatase 133 H Total Protein 5.6 L Albumin 3.3 L
[2025-04-01] MEDS: EPOETIN ALFA-EPBX 20,000 UNITS/ML VIAL 20000 UNITS IV PUSH (11:20)
--- NOTE | 2025-04-01 12:30 | P.PNNP_ITS ---
Progress Note: A&P Assessment and Plan (1) End stage renal disease: Code(s): N18.6 - End stage renal disease Status: Chronic Assessment and Plan: * HD today * continue M/W/F dialysis schedule while hospitalized * follow electrolytes, volume status, and clearance (2) Upper GI bleed: Code(s): K92.2 - Gastrointestinal hemorrhage, unspecified Status: Acute Assessment and Plan: * suspected on admission * low H/H noted on presentation in association with abdominal pain * known history of gastric ulcer * CT abdomen pelvis negative for any perforation * PRBC transfusion per protocol * GI recommendations noted: * EGD (on 03/30): normal; no evidence of bleeding lesions (3) Bradycardia: Code(s): R00.1 - Bradycardia, unspecified Status: Acute Assessment and Plan: * slow Afib with bradycardia * notably worse with rest/sleep and better when awake * off dopamine gtt * Cardiology recommendations noted (4) Paroxysmal atrial fibrillation: Code(s): I48.0 - Paroxysmal atrial fibrillation Status: Acute Assessment and Plan: * rate controlled * no anticoagulation due to history of gastric ulcer/GI bleed and is s/p left atrial appendage occlusion device (5) Colitis: Code(s): K52.9 - Noninfective gastroenteritis and colitis, unspecified Status: Inactive Assessment and Plan: * as noted by admission CT abdomen + pelvis * empiric antibiotics * follow culture data (6) Anemia: Qualifiers: Anemia type: unspecified type Qualified Code(s): D64.9 - Anemia, unspecified Code(s): D64.9 - Anemia, unspecified Status: Chronic Assessment and Plan: * partly related to ESRD * ? GI loss -- negative EGD noted * Epogen with HD * PRBC transfusion per protocol * follow trend of H/H (7) Peripheral arterial disease: Code(s): I73.9 - Peripheral vascular disease, unspecified Status: Acute Assessment and Plan: * known history * s/p intervention at [facility] recently prior to admission * was on plavix and ASA * plavix on hold (8) Type 2 diabetes mellitus: Qualifiers: Diabetes mellitus halfway insulin use: without intermodal dispatcher use Diabetes mellitus complication status: without complication Qualified Code(s): E11.9 - Type 2 diabetes mellitus without complications Code(s): E11.9 - Type 2 diabetes mellitus without complications Status: Chronic Assessment and Plan: * follow accuchecks * glycemic control per general lithographic worker/hospitalist Not opposed to discharge from renal perspective if she is otherwise medically stable -- Dr. Suarez will follow-up with her at her dialysis center for ongoing management of her ESRD/dialysis needs. Will continue to follow. L Subjective Date/time seen: 04/01/25 12:30 Interval history: Follow-up for end stage renal disease on hemodialysis. Tolerating dialysis treatment at the time of my visit (seen on HD at 12:20pm); stable blood pressure, heart rate, and H/H over the last 24 - 48 hours; no apparent distress voiced when seen; no issues/events overnight or earlier this morning. Exam 2 Narrative: General: frail and elderly female in NAD Heart: normal S1 and S2; no rub Lungs: clear anteriorly; decreased at bases Abdomen: soft, nontender, nondistended, positive bowel sounds Extremities: no cyanosis or clubbing; no edema Skin: no rash Objective Data Vital Signs Vital Signs: Vital Signs Temp Pulse Resp BP Pulse Ox O2 Del Method 04/01/25 12:30 75 150/79 H 04/01/25 12:15 78 174/75 H 04/01/25 12:00 80 176/74 H 04/01/25 11:45 64 151/60 H 04/01/25 11:30 64 163/59 H 04/01/25 11:15 62 150/62 H 04/01/25 11:00 75 181/62 H 04/01/25 10:45 71 162/70 H 04/01/25 10:30 82 143/82 H 04/01/25 10:15 76 130/59 L 04/01/25 10:00 90 142/69 H 04/01/25 09:45 86 166/102 H 04/01/25 09:30 80 141/87 H 04/01/25 09:15 75 169/62 H 04/01/25 09:09 69 148/64 H 04/01/25 08:56 98.4 F 80 20 155/65 H 95 04/01/25 08:00 Room Air 04/01/25 07:37 98.1 F 81 20 168/84 H 99 04/01/25 04:00 98.2 F 73 26 H 141/88 H 98 04/01/25 02:24 Room Air 03/31/25 20:25 99 Room Air 03/31/25 20:00 98.3 F 73 24 H 158/54 H 100 03/31/25 20:00 Room Air Intake/Output Intake/Output: Intake & Output 03/29/25 03/30/25 03/31/25 04/01/25 23:59 23:59 23:59 23:59 Intake Total 297.9 680 1060 220 Output Total 0 2000 0 1999 Balance 297.9 -1320 1060 -1780 Meds/Results Medications: Active Medications Generic Name Dose Route Start Last Admin Trade Name Freq PRN Reason Stop Dose Admin Acetaminophen 650 mg 03/28/25 14:00 03/31/25 05:22 Acetaminophen 325 Mg Tablet PO 650 mg Q4H PRN Administration Mild Pain (1-3) or Fever Aspirin 81 mg 03/30/25 19:15 04/01/25 08:14 Aspirin 81 Mg Chewable Tablet PO 81 mg DAILY@0800 THERESE Administration Atorvastatin Calcium 40 mg 03/28/25 18:00 03/31/25 16:57 Atorvastatin 40 Mg Tablet PO 40 mg QPM THERESE Administration Atropine Sulfate 0.4 mg 03/28/25 22:41 Atropine Sulfate 0.4 Mg/Ml Vial IV PUSH ONCE PRN Bradycardia Clopidogrel Bisulfate 75 mg 03/30/25 19:15 04/01/25 08:14 Clopidogrel Bisulfate 75 Mg Tablet PO 75 mg QAM THERESE Administration Dextrose 12.5 gm 03/28/25 16:45 03/30/25 10:53 Dextrose 50% 25 Gm/50 Ml Syringe IV PUSH 12.5 gm PRN PRN Administration Hypoglycemia Protocol Diclofenac Sodium 1 applic 03/28/25 16:24 Diclofenac Sodium 1% 100 Gm Gel (*Bkc) TOPICAL QID PRN discomfort Epoetin Son-epbx 20,000 units 04/01/25 18:00 04/01/25 11:20 Epoetin Son-Epbx 20,000 Units/Ml Vial IV PUSH 04/01/25 18:01 20,000 units ONCE ONE Administration Glucagon 1 mg 03/28/25 16:45 Glucagon For Inj 1 Mg Vial IM PRN PRN Hypoglycemia Protocol Glucose 15 gm 03/28/25 16:45 Glucose Oral Gel 15 Gm Of Glucse In 37.5 Gm Tube PO PRN PRN Hypoglycemia Protocol Dextrose 1,000 mls @ 100 mls/hr 03/28/25 16:45 Dextrose 5% 1,000 Ml IVPB PRN PRN Hypoglycemia Protocol Albumin Human 50 mls @ 999 mls/hr 03/30/25 01:36 Albutein IVPB 04/29/25 01:35 Q10M PRN HYPOTENSION Insulin Aspart 2 - 5 units 03/28/25 17:00 04/01/25 13:33 Insulin Aspart (*Bkc) 100 Units/Ml SUB-Q Not Given TIDWM THERESE Protocol Insulin Glargine 10 units 04/01/25 21:00 Insulin Glargine (*Bkc) 100 Units/Ml SUB-Q HS THERESE Lidocaine/Prilocaine 1 each 04/01/25 05:53 04/01/25 08:14 Lidocaine/Prilocaine Cream 2.5-2.5% Tube TOPICAL 1 each WITH DIALYSIS PRN Administration for dialysis Protocol Pantoprazole Sodium 40 mg 03/29/25 21:00 04/01/25 08:14 Pantoprazole Sodium Iv 40 Mg Vial IV PUSH 40 mg Q12HR THERESE Administration Polyethylene Glycol 17 gm 03/28/25 16:24 Polyethylene Glycol 3350 17 Gm Powd.Pack PO DAILY PRN Constipation Tobramycin Sulfate 1 drop 03/28/25 17:00 04/01/25 08:14 Tobramycin Sulfate 0.3% Ophth Soln 5 Ml EACH EYE 1 drop Q4HR THERESE Administration Vitamin B Complex/Folic Acid 1 cap 03/29/25 09:00 04/01/25 08:14 Vitamin B Cmplx/Vit C/Folic Ac 1 Capsule PO 1 cap DAILY THERESE Administration Radiology Results: ITS Impressions Abdomen/Pelvis CT 03/28/25 12:11 IMPRESSION: 1. Colitis. Likely infectious or inflammatory but given severe atherosclerotic disease, ischemic remains possible. Recommend correlation with lactate. Head CT 03/28/25 17:58 Impression: 1.No acute intracranial abnormality. Chest X-Ray 03/29/25 11:20 IMPRESSION: 1. Developing interstitial pulmonary edema. Labs Labs: Laboratory Tests 04/01/25 03:16 04/01/25 03:16 Calcium 8.0 L Phosphorus 3.4 Magnesium 1.9 Total Bilirubin 0.5 AST 27 ALT 19 Alkaline Phosphatase 133 H Total Protein 5.6 L Albumin 3.3 L
--- NOTE | 2025-04-01 13:28 | P.DS_ITS ---
DS: Admitting Diagnosis Discharge Date 04/01/2025 Admitting Diagnosis Shortness of breath, anemia with a hemoglobin of 5.9, possible GI bleed, bradycardia DS: Discharge Diagnosis Discharge Diagnosis (1) Paroxysmal atrial fibrillation: Code(s): I48.0 - Paroxysmal atrial fibrillation Status: Acute Assessment and Plan: Currently in AFib. Rate is controlled She is not a candidate for anticoagulation due to history of GI bleed gastric ulcer and current GI bleed -continue aspirin 81 mg and clopidogrel (2) Bradycardia: Code(s): R00.1 - Bradycardia, unspecified Status: Acute Assessment and Plan: Patient has slow AFib and had episode of bradycardia on the floor and was transferred to ICU. On review patient does have pause is 2-3 second duration Heart rate is lower when she is sleeping and improves as she is more awake. -OFF DOPAMINE -discussed with Cardiology,Dr. Gutierrez stated that Dr. Rodriguez now evaluated the patient for pacemaker and does not think that she needs it right now as she is high risk. - Echocardiogram done in 08/2024 reviewed and showed EF of 65% with concentric left ventricle thickness and diastolic dysfunction. She also had mild aortic stenosis along with moderate pulmonary hypertension. At this time her blood pressure is stable. Monitor (3) Hyperlipidemia: Code(s): E78.5 - Hyperlipidemia, unspecified Status: Chronic Assessment and Plan: On atorvastatin (4) Upper GI bleed: Code(s): K92.2 - Gastrointestinal hemorrhage, unspecified Status: Acute Assessment and Plan: Patient has history of gastric ulcer and gastritis and now presented with complaints and hemoglobin level consistent with upper GI bleed CT abdomen pelvis negative for any perforation. IV Protonix q.12 hours -hemoglobin have been stable Patient was transfused 2 units of PRBC at the time of admission 03/30/2025: EGD was done: Normally EGD to depth of insertion (5) Upper abdominal pain: Code(s): R10.10 - Upper abdominal pain, unspecified Status: Acute Assessment and Plan: Epigastric pain has resolved. - Normal lipase -CT scan did not show any evidence off pancreatitis although it did show colitis. (6) ESRD (end stage renal disease) on dialysis: Code(s): N18.6 - End stage renal disease; Z99.2 - Dependence on renal dialysis Status: Chronic Assessment and Plan: Patient with end-stage renal disease on dialysis -dialysis per Nephrology 03/30: And dialysis with 2000 mL in fluid removal, tolerated well (7) Anemia: Code(s): D64.9 - Anemia, unspecified Status: Acute Assessment and Plan: Multifactorial anemia likely exacerbated with GI bleed. See above -Epogen per Nephrology (8) Colitis: Code(s): K52.9 - Noninfective gastroenteritis and colitis, unspecified Status: Inactive Assessment and Plan: CT abdomen pelvis suggestive of colitis. Continue empiric broad-spectrum antibiotics -meropenem Unlikely to be ischemic as lactic acid level was normal although patient has significant peripheral arterial disease Plan DVT prophylaxis -SCDs Stress ulcer prophylaxis -PPI IV q.12 hours Nutrition -diabetic consistent carb diet, heart healthy diet, renal diet Code Status - Full Code Due to a high probability of clinically significant, life threatening deterioration, the patient required my highest level of preparedness to intervene emergently and I personally spent this critical care time directly and personally managing the patient. This critical care time included obtaining a history; examining the patient; pulse oximetry; ordering and review of studies; arranging urgent treatment with development of a management plan; evaluation of patient's response to treatment; frequent reassessment; and discussions with other providers. It was exclusive of separately billable procedures and treating other patients and teaching time. Please see Assessment and Plan section and the rest of the note for further information on patient assessment and treatment This dictation may have been done utilizing a voice recognition system. Attempts have been made to correct errors. However, there may be uncorrected grammatical, spelling, and recognitions errors present. DS: Summary Hospital Course Reason for hospitalization: Shortness of breath, anemia with a hemoglobin of 5.9, possible GI bleed, bradycardia Hospital Course: 79-year-old female with history of paroxysmal atrial fibrillation, peripheral arterial disease status post procedure in March 2025 on the right lower extremity, end-stage renal disease on dialysis with an AV fistula. History of hypertension, hyperlipidemia, type 2 diabetes, GERD, history of gastric ulcer, colonic polyps, spinal stenosis, pulmonary hypertension, aortic aneurysm presented to the ER on 03/28/2025 with dark black stools, weakness, shortness of breath. She had a procedure to her right lower extremity 10 days prior to admission at [facility] for peripheral arterial disease and cold extremity. She then started noticing black stools, felt weak along with shortness of breath on exertion which brought her to the [facility]. Workup in the ER showed a hemoglobin of 5.9, CT scan of the abdomen and pelvis showed colitis which was likely infectious/inflammatory versus ischemic. Her lactic acid was normal. Chest x-ray showed trace effusions and bilateral atelectasis. She was transfused 2 units of packed RBCs. GI was consulted and started on Protonix. Patient developed some bradycardia had a pause and heart rates in the 40s, for which she was transferred to the ICU. During her stay in the ICU she was seen by a procurement officer wire continue to monitor her heart rates. Patient has been in AFib but rate controlled, no episodes of bradycardia X temp when she sleeps at night. Heart rate dips in the 50s. According the procurement officer she is exceedingly high risk patient for pacemaker implantation. Patient did receive her dialysis on 03/30 and 04/01. Patient has been hemodynamically stable, on room air. Tolerating a diet 03/30/2025: EGD was done: Normally EGD to depth of insertion Status at Discharge Functional status at discharge: uses cane/walker (walker) Overall status at discharge: patient is back to baseline Time Spent with Patient Time attestation: Total time spent providing and/or coordinating discharge services: Time spent: Less than 30 minutes Exam Narrative: General: Pleasant but Cachectic old female who looks frail and malnourished. HEENT: Pupils equal and reactive, sclera is clear, moist oral mucosa Lungs/Chest: Trachea central Clear BS B/L, No crackles or wheezing. Cardiac: Irregular rate and rhythm rate controlled, no murmurs Circulation: Both dorsalis pedis are palpable weak. Feet are warm. Abdomen: Soft, nontender, nondistended, normoactive bowel sounds Extremities: No clubbing, cyanosis or edema. 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 She has a wound on right big toe which is under dressing, she has a fistula in both arms left is nonfunctional. Right fistula has a thrill Neurologic: Follows commands. Moves all 4 extremities PERRL AO x3 Skin: No Rash Psych: Normal mentation and affect DS: Data Data Completed and Pending Labs on day of discharge: Labs from last 24 hours 04/01/25 04/01/25 03/31/25 07:16 03:16 20:03 WBC 7.8 RBC 2.92 L Hgb 8.6 L Hct 27.9 L MCV 95.5 MCH 29.5 MCHC 30.8 L RDW 22.0 H Plt Count 190 MPV 10.8 H Immature Gran % (Auto) 0.9 H Neut % (Auto) 59.7 Lymph % (Auto) 21.8 Nash % (Auto) 14.8 H Eos % (Auto) 2.2 Baso % (Auto) 0.6 Lymph # (Auto) 1.69 Nash # (Auto) 1.2 H Eos # (Auto) 0.2 Baso # (Auto) 0.1 Abs Immat Gran (auto) 0.07 H Absolute Neuts (auto) 4.6 Absolute Nucleated RBC 0.000 Nucleated RBC % 0.0 Sodium 135 L Potassium 3.4 Chloride 99 Carbon Dioxide 27 Anion Gap 9 BUN 37 H D Creatinine 4.82 H Estim Creat Clear Calc Not Reportable Estimated GFR 9 L Glucose 164 H POC Capillary Glucose 159 H 247 H Calcium 8.0 L Phosphorus 3.4 Magnesium 1.9 Total Bilirubin 0.5 AST 27 ALT 19 Alkaline Phosphatase 133 H Total Protein 5.6 L Albumin 3.3 L 03/31/25 16:55 WBC RBC Hgb Hct MCV MCH MCHC RDW Plt Count MPV Immature Gran % (Auto) Neut % (Auto) Lymph % (Auto) Nash % (Auto) Eos % (Auto) Baso % (Auto) Lymph # (Auto) Nash # (Auto) Eos # (Auto) Baso # (Auto) Abs Immat Gran (auto) Absolute Neuts (auto) Absolute Nucleated RBC Nucleated RBC % Sodium Potassium Chloride Carbon Dioxide Anion Gap BUN Creatinine Estim Creat Clear Calc Estimated GFR Glucose POC Capillary Glucose 317 H Calcium Phosphorus Magnesium Total Bilirubin AST ALT Alkaline Phosphatase Total Protein Albumin Procedures/Treatments: 03/30/2025: EGD was done: Normally EGD to depth of insertion Discharge Plan Discharge Attending physician on discharge: Mustapha Shi Consulting providers: Christopher Taylor; David Rodriguez Discharging Clinician: Mustapha Shi Patient Disposition: Home with Home Health Service Activity: may shower and other - see discharge instructions Diet: heart healthy, diabetic and renal Discharge Instructions: Per Care Coordination: Patient will have [facility] and continued services through her [facility] ([facility]). Patient is current for RN and PT eval and treat services. [facility] can be contacted at [phone], please fax discharge summary/information to [phone]. Patient Instructions: Antibiotic Form, Clopidogrel (By mouth) Patient Language: Azeri Stand Alone Forms: General Discharge Information Follow-up/Referrals: David Coppola MD [Primary Care Provider, [facility]] Discharge Medications: New aspirin [Children's Aspirin] 81 mg Tablet,Chewable 81 mg PO DAILY@0800 Qty: 30 0RF clopidogrel 75 mg Tablet 75 mg PO QAM Qty: 30 0RF Continued atorvastatin 40 mg tablet 40 mg PO QPM Renal Caps 1 mg capsule 1 cap PO DAILY dicyclomine 10 mg capsule See Rx Instructions .ROUTE .COMPLEX Qty: 60 5RF Dose Instruction: TAKE 1 CAPSULE BY MOUTH TWICE DAILY NEEDED FOR ABDOMINAL PAIN Rx Instructions: TAKE 1 CAPSULE BY MOUTH TWICE DAILY NEEDED FOR ABDOMINAL PAIN (DME) rollator See Rx Instructions .Route .MEDSUPPLY Qty: 1 0RF Rx Instructions: As directed Prolia 60 mg/mL syringe 60 mg subcut [id number] Qty: 1 1RF Patient Comments: Due this month (May). Gets from primary care Doctor. can have caregiver bring in clotrimazole [Antifungal (clotrimazole)] 1 % cream 1 applic topical Q12H Rx Instructions: apply to right arm on fistula before dialysis tobramycin 0.3 % drops 1 drp EACH EYE Q4H Qty: 5 1RF liraglutide [Victoza 2-Agustín] 0.6 mg/0.1 mL (18 mg/3 mL) pen injector 1.2 mg subcut HS Rx Instructions: INJECT 1.8 MG (0.3 ML) SUB-Q AT BEDTIME. For diabetes diclofenac sodium [Arthritis Pain (diclofenac)] 1 % gel 2 g topical QID PRN (Reason: discomfort) Rx Instructions: apply to single elbow, wrist or hand; for hand includes palm/fingers/back of hand polyethylene glycol 3350 [Miralax] 17 gram/dose powder 17 g PO DAILY PRN (Reason: constipation) 7 Days Qty: 119 0RF quetiapine [Seroquel] 25 mg tablet 25 mg PO HS 7 Days Qty: 7 0RF acetaminophen [Acetaminophen Extra Strength] 500 mg Tablet See Rx Instructions PO Q4H PRN (Reason: Pain) Rx Instructions: 325 orally every 4 hours PRN; Januvia 100 mg tablet 100 mg PO BID (DME) blood sugar diagnostic Strip See Rx Instructions .ROUTE .MEDSUPPLY Qty: 500 3RF Rx Instructions: As directed test 6 x day (DME) hortencia strickland See Rx Instructions .Route .MEDSUPPLY Qty: 1 0RF Rx Instructions: As directed (DME) Assited gait device See Rx Instructions .Route .MEDSUPPLY Qty: 1 0RF Rx Instructions: Rolater Walker biotin 5 mg capsule 5 mg PO QPM (DME) blood sugar diagnostic Strip See Rx Instructions .Route Qty: 500 2RF Rx Instructions: Use to check blood sugars 6 times a day tenofovir alafenamide 25 mg tablet 25 mg PO DAILY Qty: 90 2RF Rx Instructions: Take every day at suppertime with the meal trazodone 50 mg tablet 100 mg PO QHS Qty: 180 1RF pantoprazole 40 mg tablet,delayed release (DR/EC) 40 mg PO Q12HR Qty: 60 5RF (DME) pen needle, diabetic 32 gauge x 5/32 needle See Rx Instructions .ROUTE .COMPLEX Qty: 100 3RF Dose Instruction: USE DIRECTED Rx Instructions: USE DIRECTED insulin degludec [Tresiba FlexTouch U-100] 100 unit/mL (3 mL) insulin pen 10 unit subcut HS Qty: 15 3RF Date of admission: 03/29/25 09:04 Primary Care Provider: David Coppola Admitting Provider: Yusra Vega Attending physician on admission: Yusra Vega Condition: Stable Quality VTE Prophylaxis VTE prophylaxis: mechanical ordered
--- NOTE | 2025-04-01 14:03 | PC.NURSE ---
Patient ambulated with stand by assist with walker. She completed one lap around unit without difficulty.
--- NOTE | 2025-04-01 14:08 | WNDPHOTO ---
PHOTO ONLY - See Nursing Notes and/ or assessments for documentation.
--- NOTE | 2025-04-01 14:15 | WNDPHOTO ---
PHOTO ONLY - See Nursing Notes and/ or assessments for documentation.
[2025-04-01] MEDS: ACETAMINOPHEN 325 MG TABLET 650 MG PO (14:23)
== END 2025-04-01 15:06 | disposition home health service (06) | DRG 377 ==
LOC: ANHED 13:53 → ANH3MEDSUR 14:33 → ANHICU 03-29 01:45
PROVIDERS: Internal Medicine; Internal Medicine Gastroenterology; Internal Medicine Nephrology; Nurse Practitioner Gerontology; Admitting Provider General Practice; Emergency Provider Emergency Medicine; PCP Family Medicine; Visit Provider Internal Medicine
PROC: 0DJ08ZZ Inspection of Upper Intestinal Tract, Via Natural or Artificial Opening Endoscopic (ICD-10-PCS; principal; 2025-03-30 16:15)
DX: K92.2 Gastrointestinal hemorrhage, unspecified (principal); N18.6 End stage renal disease; I12.0 Hypertensive chronic kidney disease with stage 5 chronic kidney disease or end stage renal disease; D62 Acute posthemorrhagic anemia; K92.1 Melena; I27.20 Pulmonary hypertension, unspecified; I71.20 Thoracic aortic aneurysm, without rupture, unspecified; I25.10 Atherosclerotic heart disease of native coronary artery without angina pectoris; I48.0 Paroxysmal atrial fibrillation; D63.8 Anemia in other chronic diseases classified elsewhere; D53.1 Other megaloblastic anemias, not elsewhere classified; E11.51 Type 2 diabetes mellitus with diabetic peripheral angiopathy without gangrene; E11.22 Type 2 diabetes mellitus with diabetic chronic kidney disease; E78.5 Hyperlipidemia, unspecified; K52.9 Noninfective gastroenteritis and colitis, unspecified; K44.9 Diaphragmatic hernia without obstruction or gangrene; K21.9 Gastro-esophageal reflux disease without esophagitis; M81.0 Age-related osteoporosis without current pathological fracture; M48.061 Spinal stenosis, lumbar region without neurogenic claudication; R56.9 Unspecified convulsions; R00.1 Bradycardia, unspecified; Z96.651 Presence of right artificial knee joint; Z87.11 Personal history of peptic ulcer disease; Z86.19 Personal history of other infectious and parasitic diseases; Z99.2 Dependence on renal dialysis; Z89.422 Acquired absence of other left toe(s); Z89.412 Acquired absence of left great toe; Z89.421 Acquired absence of other right toe(s); Z79.4 Long term (current) use of insulin; Z79.02 Long term (current) use of antithrombotics/antiplatelets
CPT/HCPCS: 36415; 36430; 36600; 70450; 71045; 71046; 74177; 80048; 80053; 82805; 82948; 83605; 83690; 83735; 83880; 84100; 84145; 84484; 85014; 85018; 85025; 85027; 85610; 85730; 86140; 86706; 86850; 86900; 86901; 86923; 87340; 93005; 94002; 94003; 96374; 96375; 99285; A9270; G0257; G0378; J0461; J1265; J1815; J1953; J2003; J2185; J2312; J2470; J7030; J7040; J7050; P9016; Q5105; Q9967

== ENCOUNTER 2025-04-23 09:45 | Outpatient (CLI) | payer MEDICARE, SELFPAY ==
--- NOTE | ~2025-04-23 | DEXA_ITS ---
Bone Density Report Name: NEO PETE Age: 80 Sex: Female Ethnicity: White Date of : 1945 Indication: postmenopausal osteoporosis; monitoring treatment; end stage renal disease; rheumatoid arthritis; Referring Provider: NOY PENN Study: Bone densitometry was performed. Exam Date: April 23, 2025 Accession number: [id number] Bone Density: Region BMD T-score Z-score Classification AP Spine(L1-L4) 0.905 -1.3 1.3 Osteopenia Femoral Neck (Left) 0.497 -3.2 -0.9 Osteoporosis Total Hip (Left) 0.588 -2.9 -0.9 Osteoporosis Femoral Neck (Right) 0.439 -3.7 -1.4 Osteoporosis Total Hip (Right) 0.533 -3.3 -1.3 Osteoporosis Total Hip Mean 0.561 -3.1 -1.1 Osteoporosis World Health Organization criteria for BMD impression classify patients as: Normal (T-score at or above -1.0), Osteopenia (T-score between -1.0 and -2.5), or Osteoporosis (T-score at or below -2.5). 10-year Fracture Risk: FRAX not reported because: Some T-score for Spine Total or Hip Total or Femoral Neck at or below -2.5 Treated for osteoporosis Previous Exams: -- Region Exam Age BMD T-score BMD Change BMD Change Date g/cm2 vs Baseline vs Previous -- AP Spine (L1-L4) 04/23/2025 80 0.905 -1.3 10.6%* 10.6%* 02/16/2022 76 0.818 -2.1 Total Hip(Left) 04/23/2025 80 0.588 -2.9 6.0%* 6.0%* 02/16/2022 76 0.555 -3.2 Total Hip(Right) 04/23/2025 80 0.533 -3.3 4.3% 4.3% 02/16/2022 76 0.511 -3.5 -- *Denotes significance at 95% confidence level, LSC for AP Spine = 0.022 g/cm2, LSC for Total Hip = 0.027 g/cm2 Clinical Information Provided by Patient: Has rheumatoid arthritis Is being treated for osteoporosis Has used the following medications: Vitamin D Has the following medical conditions: End stage renal disease Patient maximum height was 57 Menopause Age: 51 Drinks caffeinated beverages Onset of menses at age 13 Number of children 3 Impression: The patient has osteoporosis, based on the Right Femoral Neck T-score. No significant bone loss was observed. Discussion: PATIENT UNDER TREATMENT WITH NO SIGNIFICANT BMD LOSS SINCE LAST EXAM. In an untreated patient, BMD typically declines with age. A lack of decline or gain is usually a sign that treatment is efficacious and fracture risk is reduced. It is important to ask patients whether they are taking their medications and to encourage continued and appropriate compliance with their osteoporosis therapies to reduce fracture risk. It is also important to review their risk factors and encourage appropriate calcium and vitamin D intakes, exercise, fall prevention and other lifestyle measures. Follow-Up: Consider a repeat BMD and Vertebral Fracture Assessment (VFA) exam in 2 years or sooner if medically necessary, to reassess this patient's status. Reported by: SLOAN on 04/23/2025 11:17:00 AM. Reviewed, dictated and finalized at location A.
== END 2025-04-23 09:46 | disposition home or self-care (01) ==
LOC: MICIMG 09:46
PROVIDERS: PCP Family Medicine; Visit Provider Family Medicine
DX: M81.0 Age-related osteoporosis without current pathological fracture (principal)
CPT/HCPCS: 77080

== ENCOUNTER 2025-04-27 18:50 | Observation (INO) | payer MEDICARE, MEDICAID, SELFPAY ==
[2025-04-27] VITALS (7 sets, daily range): BP systolic 112–136; BP diastolic 31–60; PULSE 68–90; RESP 19–26; TEMP 36.4–36.7; O2SAT 91–97
--- NOTE | ~2025-04-27 | CT_ITS ---
EXAMINATION: CT abdomen pelvis w con DATE: 04/27/2025 23:13 INDICATION: GI bleed TECHNIQUE: Computed tomography (CT) of the abdomen and pelvis was performed with 100 cc Omnipaque 350 intravenous contrast. The dose-length product was 193.88 mGy-cm. Automated exposure control and iterative reconstruction technique were employed. COMPARISON: CT dated 03/28/2025. FINDINGS: Cardiomegaly. Trace pleural effusions. Dependent atelectasis. Fatty infiltration of the liver. There is cirrhosis. The spleen, pancreas, adrenal glands are unremarkable. Gallbladder is present. There is stenosis at the origin of celiac axis and to a lesser degree the SMA. There is severe bilateral renal atrophy with small bilateral cysts. Nonobstructing right nephrolithiasis. Nonobstructive bowel gas pattern. There is an atrophic uterus. There are healed bilateral inferior pubic rami fractures. There is diffuse demineralization of the spine. Mild diffuse subcutaneous edema. There is mild thickening of the gastric wall which may be due to gastritis or underdistention. IMPRESSION: 1. Mild thickening of the gastric wall which may be due to underdistention or gastritis. Neoplasm less favored. 2: Cirrhosis. 3: Small pleural effusions. 4: Cardiomegaly. 5: Severe renal atrophy. Reviewed, dictated and finalized at location O. IMPRESSION: 1. Mild thickening of the gastric wall which may be due to underdistention or g astritis. Neoplasm less favored. 2: Cirrhosis. 3: Small pleural effusions. 4: Cardiomegaly. 5: Severe renal atrophy.
--- OUTSIDE RECORDS SUMMARY | 2025-04-27 19:26 | XMS_ITS | Encounter Summary ---
Author Organization [facility] Address [address] [place] [address] Phone Care Team Providers Care Grain Thresher Name Role Phone David Coppola MD Primary Care Provider [phone] David Coppola MD Primary Care Provider [phone] David Coppola MD Primary Care Provider [phone] David Coppola MD Primary Care Provider [phone] Unknown, Notinfile Primary Care Provider Unavail able David Coppola MD Primary Care Provider [phone] Jacob Suarez MD Unavailable [phone] Marnie Lara RN Unavailable [phone] Ros Seay MD Unavailable [phone] Johana Edmond RN Unavailable Abdifatah Villa MD Unavailable Issa Clements MD Unavailable [phone] Encounter Details Date Type Department Care Team (Latest Contact Info) Description 12/16/1980 Orders Only [facility] Scanning, Provider Social History Tobacco Use Types Packs/Day Years Used Date Smoking Tobacco: Never Assessed Comments Unknown Sex and Gender Information Value Date Recorded Sex Assigned at Not on file Legal Sex Female 12:39 PM ART THERAPIST Gender Identity Not on file Sexual Orientation [...] Influenza, adult 09/04/2019 09/04/2019 09/11/2019 3:05 AM ART THERAPIST Abscess/Wound/Cellulitis 10/16/2019 10/16/2019 3:05 AM CDT documented as of this encounter Care Teams Grain Thresher Relationship Specialty Start Date End Date David [...] Nephrology 12/20/18 Marnie Lara, RN Registered Nurse Tube Heater 12/20/1809/03 Ros Seay MD [facility] Cardiology 03/05/19 Johana Edmond, RN [address] [address] Tube Heater 08/21/19 Abdifatah Villa MD [address] [facility] [address] [facility] [address] [place] [address] Consulting Physician Cardiology 09/01/20 Issa Clements MD [address] [facility] [address] [place] [address] Referring Physician General Surgery 09/01/20 documented as of this encounter
--- OUTSIDE RECORDS SUMMARY | 2025-04-27 19:26 | XMS_ITS | Clinical Summary ---
Author Organization [facility] [address] Address [address] [place] [address] Care Team Providers Care Urologist Name Role Phone David Coppola MD Primary Care Provider [phone] Jacob Suarez MD Unavailable [phone] Ros Seay MD Unavailable [phone] Abdifatah Villa MD Unavailable Issa Clements MD Unavailable [phone] Allergies Active Allergy Reactions Criticality Noted [...] mg total) by mouth nightly 2 Active vitamin B complex with C-folic [...] daily Active aspirin 81 mg enteric coated tabletIndication s:prevention of thrombosis Take 1 tablet (81 mg total) by mouth daily 30 tablet [address] (PROTONIX) 40 mg EC tabletIndication s:GI Bleed Take 1 tablet (40 mg total) by mouth 2 (two) times a day 60 tablet 5 Active ticagrelor (Brilinta) 90 mg tablet Take 1 tablet (90 mg total) by mouth 2 (two) times a day 60 tablet 5 Active atorvastatin (LIPITOR) 40 mg tabletIndication s:PAD (peripheral artery disease) Take 1 tablet by mouth once daily 90 tablet 3 5 Active Active Problems Problem Noted Date Diagnosed [...] GIB. Patients daughter reports recent admission to [facility] due to concern for GIB. Patient followed up with her outpatient GI. Planning for EGD at the end of November - continue PPI. Assessment & Plan (11/21/2024 3:03 PM CDT): History of peptic ulcer with GIB. Patients daughter reports recent admission to [facility] due to concern for GIB. Patient followed up with her outpatient GI. Planning for EGD at the end of November - closely monitor for bleeding due to starting asa and Plavix as above - continue PPI Assessment & Plan (08/28/2024 1:08 PM JUNIOR LEGAL SECRETARY): History of peptic ulcer with GIB Denies [...] 08/21/2020 Assessment & Plan (08/28/2024 1:05 PM JUNIOR LEGAL SECRETARY): Home regimen Januvia, tresiba 10 and Victoza. Reviewed PCP records noted hypoglycemia last hospital admit with basal insulins continued Will continue januvia and hold tresiba and victoza SSI Family history of ischemic h eart disease and other diseases of the circulatory system 11/27/2019 Critical limb ischemia of right lower extremity 10/14/2019 Overview (10/14/2019): Added automatically from request for surgery [id number] Assessment & Plan (03/20/2025 3:52 PM CDT): [...] @[place] Assessment & Plan (08/28/2024 12:59 PM JUNIOR LEGAL SECRETARY): S/p uncomplicated balloon angioplasty of the AT, [...] (10/14/2019): Added automatically from request for surgery [id number] Presence of Watchman left atrial appendage closu re device 08/29/2018 Atrial fibrillation 06/13/2018 Overview (06/13/2018): Added automatically from request for surgery [id number] Assessment & Plan (03/20/2025 3:52 PM CDT): [...] below Assessment & Plan (08/28/2024 1:03 PM JUNIOR LEGAL SECRETARY): [place] [facility] [place] Rate controlled and s/p Watchman due to prior severe GIB Recently stopped coreg due to bradycardia ASA and plavix to start per IR recs post revascularization Assessment & Plan (07/24/2018 9:29 AM JUNIOR LEGAL SECRETARY): Continue coreg. S/p Watchmann DAVIDA occluder implant for future deescalate anticoagulation. Continue apixiban for now as per EP. Post procedure CXR. 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 Hyperlipidemia associated [...] today Assessment & Plan (08/29/2024 4:04 PM JUNIOR LEGAL SECRETARY): Routine M/W/F r brachial fistula (has required multiple dilations last at [facility] 07/2024 Feeling well post procedure denies dyspnea. Renal consulted for HD prior to discharge Assessment & Plan (07/24/2018 9:26 AM JUNIOR LEGAL SECRETARY): HD as per renal consult. Resume outpt [...] Resolved Date Coronary artery disease invo lving [place] coronary artery of [place] heart without angina pectoris 03/07/2021 03/07/2021 Preoperative cardiovascular examination 03/07/2021 09/29/2022 Hypoxia 11/27/2019 04/03/2023 Toe ulcer, left, with unspecified severity 09/16/2018 03/07/2021 Overview (09/16/2018): Added automatically from request for surgery [id number] Cough 11/10/2017 03/07/2021 Lumbago 06/04/2017 03/07/2021 Pain of lower extremity 06/04/201703/10 Chronic anticoagulation 08/22/201610/2018 Overview (10/12/2016): Chronic anticoagulation Stage 4 chronic kidney disease 04/21/2014 04/03/2023 Pain in joint 03/04/2014 04/03/2023 Paroxysmal atrial fibrillation 05/06/2024 ESRD (end stage renal disease) ([facility]) 03/07/2021 Pre-transplant evaluation fo r kidney transplant 04/03/2023 Encounters Date Type Department Care Team Description 04/14/2025 Orders Only [facility] Cardiology [address] [place] [phone] Maria Eugenia Esteves NP 04/02/2025 Orders Only [facility] Cardiology [address] [place] [phone] Maria Eugenia Esteves NP 03/31/2025 Orders Only [facility] Cardiology [address] [place] [phone] David Rodriguez MD 03/18/2025 2:38 PM CDT - 03/20/2025 4:45 PM CDT Hospital Encounter [facility] [address] [place] [address] Ushinsky, Ar, MD ObeidaLayton renteria MD Martin, Nathan R., MD Pinkerton, Robles Castillo MD ESRD (end stage renal disease) on dialysis (HCC); Atherosclerosis of [place] artery of right lower extremity with other clinical manifestation; 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); PAD (peripheral artery disease) Discharge Disposition: Discharge to home or self care 03/18/2025 Orders Only [facility] Radiology [address] [place] [phone] Pau Dos Santos RN 03/18/2025 Telephone [facility] Radiology [address] [place] [phone] Yaritza Golden, ABENA 03/16/2025 [facility] Radiology [address] [place] [address] Yaritza Golden, ABENA 03/13/2025 [facility] Radiology [address] [place] [phone] Luh Alvarez RN 03/05/2025 [facility] Radiology [address] [place] [phone] Alena Fontenot, ABENA 02/19/[address] [address] Claudia Florentino RN 02/19/2025 Orders Only [facility] Radiology [address] [place] [phone] Claudia Florentino RN 02/19/2025 [facility] Radiology [address] [place] [phone] Alena Fontenot, RN 02/19/2025 Orders Only [facility] Radiology [address] [place] [phone] Alena Fontenot, RN Atherosclerosis of artery (Primary Dx) 02/16/2025 [facility] Radiology [address] [place] [phone] Alena Fontenot, ABENA 02/13/2025 Telephone [facility] Radiology [address] [place] [address] Alena Fontenot, RN 02/12/2025 4:00 PM CDT Telemedicine [facility] Medicine Radiology, Interventional Radiology [address] [place] [phone] Anthony Gorman MD Type 2 diabetes mellitus with diabetic peripheral angiopathy and gangrene, without long-term current use of insulin (HCC) (Primary Dx); Atrial fibrillation, permanent (HCC); Hyperlipidemia associated with type 2 diabetes mellitus (HCC); Critical limb ischemia of right lower extremity (HCC); Noncompliance; PAD (peripheral artery disease) 02/12/2025 Telephone [facility] Radiology [address] [place] [address] Alena Fontenot, RN from Last 3 Months [...] Hx Relation Name Status Comments Brother of CO age 48 Father of CO age 47 Mother Social History Tobacco Use [...] often do you attend chur ch or oriental orthodox services? 1 to 4 times per year 09/04/2019 Do you belong to any clubs o r organizations such as baptism groups, unions, fraternal or athletic groups, or [...] on file Legal Sex Female 12:39 PM JUNIOR LEGAL SECRETARY Gender Identity Not on file Sexual Orientation [...] 09/04/2019, 05/08/2019 Medical Devices Implanted Type Area Human Factors Ergonomist Device Identifier Shelf Expiration Date Model / Serial / Lot Device Clsr 27mm Davida Watchman - [id number] - [id number] Implanted:Qty : 1 on 07/23/2018 by Mike Mccloud MD PhD at [facility] Other - see comments Left: [employer] Breanna 12/13/2020 27MM-DAVIDA CLOSURE DEVICE / [id number] / [id number] Description:Left atrial appe ndage closure device Watchman Daig Breanna/[employer] [id number] Angio-Seal Vip Bondek-Plus 6fr .035in 70cm Hemostatic Latex Free - [id number] Implanted:Qty : 1 on 03/20/2018 by Abdifatah Villa MD at [facility] Daig Breanna/[employer] 12/06/2018 [id number] / / [id number] Device Davida Watchman Procedure - [id number] Implanted:Qty : 1 on 07/23/2018 by Mike Mccloud MD PhD at [facility] [employer] Scientific Breanna WMPERPROCDEVICE 1 - 3 PC / / Description:1 Device Daig Breanna/[employer] [id number] Angio-Seal Vip Bondek-Plus 6fr .035in 70cm Hemostatic Latex Free - [id number] Implanted:Qty : 1 on 09/26/2018 by Abdifatah Villa MD at [facility]/[employer] 06/07/2019 [id number] / / [id number] [facility] [id number] Device Closure Angio-Seal Vip Bondek-Plus Polyglyd L70 Cm Od6 Fr Odsec.035 In Vascular - [id number] Implanted:Qty : 1 on 10/16/2019 by Abdifatah Villa MD at [facility]/[employer] [id number] / / [employer] Device 6fr Closure Celt Acd Vascular Sterile Latex Free Disposable Flavio Kclt-06 - [id number] Implanted:Qty : 1 on 08/28/2024 at [facility] [employer] 01/01/2027 KCLT-06 / / [id number] [employer] Angio-Seal Vip 6fr Closere Device [id number] - [id number] Implanted:Qty : 1 on 11/21/2024 at [facility] [email or web address] 03/26/2025 [id number] / / [id number] [employer] Stent Peripheral Over The Wire Zilver Ptx [id number] 25cm Nitinol [id number] - [id number] Implanted:Qty : 1 on 03/19/2025 at [facility] [employer] 12/16/2026 [id number] / / [id number] Procedures Procedure Name Priority Date/Time Associated Diagnosis Comments CARDIOLOGY DOCUMENT SCAN Routine 04/01/2025 11:36 AM CDT CARDIOLOGY DOCUMENT SCAN Routine 03/31/2025 3:52 PM CDT CARDIOLOGY DOCUMENT SCAN Routine 03/30/2025 9:41 AM CDT CARDIOLOGY DOCUMENT SCAN Routine 03/29/2025 9:38 AM CDT POCT GLUCOSE DEVICE Routine 03/20/2025 1 2:23 [...] Routine) 03/19/2025 12:37 PM CDT Atherosclerosis of [place] artery of right lower extremity with other [...] 4 :29 PM CDT DIALYSIS FISTULAGRAM W PROCESS DEVELOPMENT TECHNICIAN PERIPHERAL SEGMENT Schedule Routine, Read Routine (OP Routine) 03/18/2025 1:58 PM CDT ESRD (end stage renal disease) on dialysis (HCC) LIPID PANEL Routine 11/21/2024 6:31 AM CDT PAD (peripheral artery disease) HEPATITIS C ANTIBODY Routine 08/19/2020 12:07 PM JUNIOR LEGAL SECRETARY ESRD (end stage renal disease) (HCC) HEMOGLOBIN A1C Routine 09/04/2019 12:14 AM JUNIOR LEGAL SECRETARY from Last 3 Months or Most Recently Relevant to Health Maintenance Results * Cardiology Document Scan (04/01/2025 11:36 AM CDT) Anatomical Region Laterality Modality Other Maria Eugenia Esteves NP CV CARDIAC SERVICE S PROCEDURES Final Result * Cardiology Document Scan (03/31/2025 3:52 PM CDT) Anatomical Region Laterality Modality Other us Maria Eugenia Esteves NP CV CARDIAC SERVICE S PROCEDURES Final Result * Cardiology Document Scan (03/30/2025 9:41 AM CDT) Anatomical Region Laterality Modality Other Barbara Gutierrez MD CV CARDIAC SERVICES PROCEDU RES Final Result * Cardiology Document Scan (03/29/2025 9:38 AM CDT) Anatomical Region Laterality Modality Other us David Rodriguez MD CV CARDIAC SERVICES PROC EDURES Final Result * POCT glucose (03/20/2025 12:23 PM CDT) Glucose, POC 80 70 - 199 mg/dL Blood 03/20/2025 12:2 3 PM CDT 03/20/2025 12:23 PM CDT Lew Brooke MD LAB POCT ORDERABLES - DEVICE Final Result Performing Organization Address City/State/[facility] de Phone Number [facility] Department [place] [address] * (ABNORMAL) eGFR (03/19/2025 8:25 PM CDT) Pathologist [facility] eGFR 20(L) >=60 mL/min/1. 73 m2 Comment: [...] ORDERABLES Fin al Result Performing Organization Address [facility] Co de Phone Number [facility] Department [place] [address] * (ABNORMAL) Differential, auto (03/19/2025 8:25 PM CDT) Pathologist [facility] Neutrophil abs 5.34 1.50 - 6.50 K/cumm Imm gran abs 0.02 0.00 - 0.10 K/cumm [facility] Lymphocyte abs 0.56(L) 0.80 - 3.30 K/cumm [facility] Monocyte abs 0.53 0.20 - 0.80 K/cumm [facility] Eosinophil abs 0.03 0.00 - 0.50 K/cumm [facility] Basophil abs 0.03 0.00 - 0.10 K/cumm [facility] Neutrophil pct 82.0 % [facility] Comment: Interpretive Data Percent cell count reference ranges are not reported, since discordance with absolute values may lead to misinterpretation of CBC data. Current Interpretive Data was last revised on 2017. Imm gran pct 0.3 % [facility] Comment: Interpretive Data Percent cell count reference ranges are not reported, since discordance with absolute values may lead to misinterpretation of CBC data. Current Interpretive Data was last revised on 2017. Lymphocyte pct 8.6 % [facility] Comment: Interpretive Data Percent cell count reference ranges are not reported, since discordance with absolute values may lead to misinterpretation of CBC data. Current Interpretive Data was last revised on 2017. Monocyte pct 8.1 % [facility] Comment: Interpretive Data Percent cell count reference ranges are not reported, since discordance with absolute values may lead to misinterpretation of CBC data. Current Interpretive Data was last revised on 2017. Eosinophil pct 0.5 % [facility] Comment: Interpretive Data Percent cell count reference ranges are not reported, since discordance with absolute values may lead to misinterpretation of CBC data. Current Interpretive Data was last revised on 2017. Basophil pct 0.5 % [facility] Comment: Interpretive Data Percent cell count reference ranges are not reported, since discordance with absolute values may lead to misinterpretation of CBC data. Current Interpretive Data was last revised on 2017. Blood 03/19/2025 8:25 PM CDT 03/19/2025 8:36 PM CDT us Claudia Nicole NP LAB BLOOD ORDERABLES Fin al Result [facility] Department [place] [address] * (ABNORMAL) CBC with auto differential (03/19/2025 8:25 PM CDT) WBC 6.51 3.80 - 9.90 K/cumm Hgb 8.2(L) 11.9 - 15.5 g/dL [facility] Hct 26.9(L) 35.6 - 45.5 % [facility] Plt 111(L) 150 - 400 K/cumm [facility] MPV 11.6 9.1 - 12.[address] [facility] RBC 2.63(L) 3.90 - 5.20 M/cumm [facility] MCV 102.3(H) 81.3 - 96.[address] [facility] MCH 31.2 27.1 - 33.[address] [facility] MCHC 30.5(L) 32.3 - 35.7 g/dL [facility] RDW CV 15.6(H) 11.1 - 14.9 % [facility] RDW SD 58.1(H) 35.7 - 48.[address] [facility] NRBC abs 0.00 0.00 - 0.01 K/cumm [facility] Blood 03/19/2025 8:25 PM CDT 03/19/2025 8:36 PM CDT us Claudia Nicole NP LAB BLOOD ORDERABLES Fin al Result [facility] Department [place] [address] * (ABNORMAL) Basic metabolic panel (03/19/2025 8:25 PM CDT) [facility] Sodium 135 135 - 145 mmol/L Potassium, pl 4.1 3.3 - 4.9 mmol/L [facility] Chloride 94(L) 97 - 110 mmol/L [facility] CO2 28 22 - 32 mmol/L [facility] Anion gap 13 2 - 15 mmol/L [facility] BUN 15 6 - 25 mg/dL [facility] Creatinine 2.38(H) 0.60 - 1.10 mg/dL [facility] Glucose 137 70 - 199 mg/dL [facility] Comment: Interpretive Data Fasting glucose [...] 8.5 - 10.3 mg/dL [facility] Blood 03/19/2025 8:25 PM CDT 03/19/2025 8:36 PM CDT Claudia Nicole NP LAB BLOOD ORDERABLES Fin al Result Performing Organization Address [facility] de Phone Number [facility] Department [place] [address] * POCT glucose (03/19/2025 7:48 PM CDT) Glucose, POC 140 70 - 199 mg/dL Blood 03/19/2025 7:48 PM CDT 03/19/2025 7:48 PM CDT Lew Brooke MD LAB POCT ORDERABLES - DEVICE Final Result Performing Organization Address [facility] de Phone Number [facility] Department [place] [address] * POCT glucose (03/19/2025 5:45 PM CDT) Glucose, POC 137 70 - 199 mg/dL Blood 03/19/2025 5:45 PM CDT 03/19/2025 5:45 PM CDT Lew Brooke MD LAB POCT ORDERABLES - DEVICE Final Result Performing Organization Address [facility] de Phone Number CERNER [facility] [place] [address] * (ABNORMAL) POCT Activated clotting time, low range (03/19/2025 2:50 PM CDT) ACT 290(H) 123 - 168 sec POC Device Number [id number] GUILLERMINA MCNALLY Blood 03/19/2025 2:50 PM CDT 03/19/2025 2:50 PM CDT us Lew Brooke MD LAB POCT ORDERABLES - DEVICE Final [place] [address] * (ABNORMAL) POCT Activated clotting time, low range (03/19/2025 1:56 PM CDT) ACT 348(H) 123 - 168 sec POC Device Number [id number] [facility] Blood 03/19/2025 1:56 PM CDT 03/19/2025 1:56 PM CDT us Lew Brooke MD LAB POCT ORDERABLES - DEVICE Final Result Performing Organization Address City/[facility]/ZIP Co de Phone Number [facility] [place] [address] * IR Angiogram Lower Extremity Right (03/19/2025 [...] was obtained. Prior to beginning the procedure, Antonito Protocol was performed to confirm the patient's [...] the patent vessel was recorded. A 6Fr [place] sheath was placed and the right lower extremity angiogram was performed in stations to the foot A 6-[place] 45 cm sheath was advanced to the [...] was obtained. Prior to beginning the procedure, Antonito Protocol was performed to confirm the patient's [...] the patent vessel was recorded. A 6Fr [place] sheath was placed and the right lower extremity angiogram was performed in stations to the foot A 6-[place] 45 cm sheath was advanced to the [...] * POCT glucose (03/19/2025 7:47 AM CDT) [facility] Glucose, POC 155 70 - 199 mg/dL Blood 03/19/2025 7:47 AM CDT 03/19/2025 7:47 AM CDT Lew Brooke MD LAB POCT ORDERABLES - DEVICE Final Result [facility] [place] [address] * Hepatitis B Surface Antigen Blood (03/19/2025 7:26 AM CDT) [facility] HepBsAg Nonreactive Nonreactive Blood 03/19/2025 7:26 AM CDT 03/19/2025 7:52 AM CDT Satya Brooke MD LAB MICROBIOLOGY - GEN ERAL ORDERABLES Final Result [facility] [place] [address] * (ABNORMAL) eGFR (03/18/2025 8:29 PM CDT) [facility] eGFR 8(L) >=60 mL/min/1. 73 m2 [...] 8:29 PM CDT 03/18/2025 9:00 PM CDT Layton Johnson MD LAB BLOOD ORDERA BLES Final Result [facility] Department [place] [address] * Differential, auto (03/18/2025 8:29 PM CDT) Neutrophil abs 2.87 1.50 - 6.50 K/cumm Imm gran abs 0.01 0.00 - 0.10 K/cumm [facility] Lymphocyte abs 1.21 0.80 - 3.30 K/cumm [facility] Monocyte abs 0.50 0.20 - 0.80 K/cumm [facility] Eosinophil abs 0.07 0.00 - 0.50 K/cumm [facility] Basophil abs 0.03 0.00 - 0.10 K/cumm [facility] Neutrophil pct 61.2 % [facility] Comment: Interpretive Data Percent cell count reference ranges are not reported, since discordance with absolute values may lead to misinterpretation of CBC data. Current Interpretive Data was last revised on 2017. Imm gran pct 0.2 % [facility] Comment: Interpretive Data Percent cell count reference ranges are not reported, since discordance with absolute values may lead to misinterpretation of CBC data. Current Interpretive Data was last revised on 2017. Lymphocyte pct 25.8 % [facility] Comment: Interpretive Data Percent cell count reference ranges are not reported, since discordance with absolute values may lead to misinterpretation of CBC data. Current Interpretive Data was last revised on 2017. Monocyte pct 10.7 % [facility] Comment: Interpretive Data Percent cell count reference ranges are not reported, since discordance with absolute values may lead to misinterpretation of CBC data. Current Interpretive Data was last revised on 2017. Eosinophil pct 1.5 % [facility] Comment: Interpretive Data Percent cell count reference ranges are not reported, since discordance with absolute values may lead to misinterpretation of CBC data. Current Interpretive Data was last revised on 2017. Basophil pct 0.6 % [facility] Comment: Interpretive Data Percent cell count reference ranges are not reported, since discordance with absolute values may lead to misinterpretation of CBC data. Current Interpretive Data was last revised on 2017. Blood 03/18/2025 8:29 PM CDT 03/18/2025 9:01 PM CDT Layton Johnson MD LAB BLOOD ORDERA BLES Final Result [facility] [place] [address] * (ABNORMAL) CBC with auto differential (03/18/2025 8:29 PM CDT) WBC 4.69 3.80 - 9.90 K/cumm Hgb 7.0(L) 11.9 - 15.5 g/dL [facility] Hct 23.3(L) 35.6 - 45.5 % [facility] Plt 103(L) 150 - 400 K/cumm [facility] MPV 12.6(H) 9.1 - 12.[address] [facility] RBC 2.27(L) 3.90 - 5.20 M/cumm [facility] MCV 102.6(H) 81.3 - 96.[address] [facility] MCH 30.8 27.1 - 33.[address] [facility] MCHC 30.0(L) 32.3 - 35.7 g/dL [facility] RDW CV 15.7(H) 11.1 - 14.9 % [facility] RDW SD 59.2(H) 35.7 - 48.[address] [facility] NRBC abs 0.00 0.00 - 0.01 K/cumm [facility] Blood 03/18/2025 8:29 PM CDT 03/18/2025 9:01 PM CDT Layton Johnson MD LAB BLOOD ORDERA BLES Final Result Performing Organization Address City/[facility]/ZIP Co de Phone Number [facility] [place] [address] * (ABNORMAL) Phosphorus (03/18/2025 8:29 PM CDT) Phosphorus, pl 5.6(H) 2.3 - 4.5 mg/dL Blood 03/18/2025 8:29 PM CDT 03/18/2025 8:55 PM CDT Layton Johnson MD LAB BLOOD ORDERA BLES Final Result [facility] [place] [address] * Magnesium (03/18/2025 8:29 PM CDT) Magnesium 2.4 1.4 - 2.5 mg/dL Blood 03/18/2025 8:29 PM CDT 03/18/2025 8:55 PM CDT Layton Johnson MD LAB BLOOD ORDERA BLES Final Result [facility] [place] [address] * (ABNORMAL) Comprehensive metabolic panel (03/18/2025 8:29 PM CDT) Sodium 137 135 - 145 mmol/L Potassium, pl 4.9 3.3 - 4.9 mmol/L [facility] Chloride 96(L) 97 - 110 mmol/L [facility] CO2 31 22 - 32 mmol/L [facility] Anion gap 10 2 - 15 mmol/L [facility] BUN 46(H) 6 - 25 mg/dL [facility] Creatinine 5.22(H) 0.60 - 1.10 mg/dL [facility] Glucose 242(H) 70 - 199 mg/dL [facility] Comment: Interpretive Data Fasting glucose [...] 2022. Calcium 10.4(H) 8.5 - 10.3 mg/dL [facility] Bilirubin, total 0.3 0.1 - 1.2 mg/dL [facility] Protein, pl 5.5(L) 6.5 - 8.5 g/dL [facility] Albumin 3.2(L) 3.5 - 5.0 g/dL [facility] Alk phos 126 40 - 130 Units/L [facility] ALT 22 7 - 45 Units/L [facility] AST 30 10 - 45 Units/L [facility] Blood 03/18/2025 8:29 PM CDT 03/18/2025 8:55 PM CDT us Layton Johnson MD LAB BLOOD ORDERA BLES Final Result Performing Organization Address [facility] de Phone Number [facility] [place] [address] * (ABNORMAL) POCT glucose (03/18/2025 7:52 PM CDT) Glucose, POC 280(H) 70 - 199 mg/dL Blood 03/18/2025 7:52 PM CDT 03/18/2025 7:52 PM CDT us Layton Johnson MD LAB POCT ORDERAB LES - DEVICE Final Result Performing Organization Address [facility] Phone Number [facility] [place] [address] * POCT glucose (03/18/2025 4:29 PM CDT) Glucose, POC 128 70 - 199 mg/dL Blood 03/18/2025 4:29 PM CDT 03/18/2025 4:29 PM CDT us Layton Johnson MD LAB POCT ORDERAB LES - DEVICE Final Result Performing Organization Address [facility] Phone Number [facility] [place] [address] * IR Dialysis Fgram W PROCESS DEVELOPMENT TECHNICIAN Peripheral Segment (03/18/2025 1:58 PM CDT) Anatomical [...] the procedure. Dr. Scotty Jay M.D. (residential real estate appraiser) was present and participated in the procedure. SEDATION: Procedural sedation was administered under the attending physician's direction and continuous monitoring by a trained nurse specialist who was independent from those actually performing the procedure. Total monitored sedation time was 60 minutes. TECHNIQUE: The risks, benefits and alternatives were discussed and informed consent was obtained. Prior to beginning the procedure, Antonito Protocol was performed to confirm the patient's [...] graft followed by placement of a 5 citizen [place] catheter. Fluoroscopy was used for all catheter and guidewire manipulations. Multiple DSA images were obtained to visualize the dialysis access from the arterial anastomosis through the vena cava. After identifying a stenosis a 6-[place] sheath was placed. The patient was given [...] using a 8 mm x 40 mm Heaters high-pressure balloon. At the end of the [...] the procedure. Dr. Scotty Jay M.D. (residential real estate appraiser) was present and participated in the procedure. SEDATION: Procedural sedation was administered under the attending physician's direction and continuous monitoring by a trained nurse specialist who was independent from those actually performing the procedure. Total monitored sedation time was 60 minutes. TECHNIQUE: The risks, benefits and alternatives were discussed and informed consent was obtained. Prior to beginning the procedure, Antonito Protocol was performed to confirm the patient's [...] graft followed by placement of a 5 citizen [place] catheter. Fluoroscopy was used for all catheter and guidewire manipulations. Multiple DSA images were obtained to visualize the dialysis access from the arterial anastomosis through the vena cava. After identifying a stenosis a 6-[place] sheath was placed. The patient was given [...] using a 8 mm x 40 mm Heaters high-pressure balloon. At the end of the [...] on 2018. Triglycerides 90 <=149 mg/dL [facility] Comment: Interpretive Data Ages < [...] on 2018. HDL 35(L) >=40 mg/dL [facility] Comment: Interpretive Data Ages < [...] 2018. LDL, calculated 46 <=129 mg/dL [facility] Comment: Interpretive Data Ages < [...] Non-HDL Cholesterol 64 mg/dL [facility] Comment: Interpretive Data Ages < [...] 2018. Chol/HDL ratio [address] [facility] Blood 11/21/2024 6:31 AM CDT 11/21/2024 6:47 AM CDT Anthony Gorman MD LAB BLOOD ORDERABLES Fi nal Result [facility] [place] [address] * Hepatitis C antibody (08/19/2020 12:07 PM JUNIOR LEGAL SECRETARY) Hep C Ab Nonreactive Nonreactive [facility] Comment:Antibodies to HCV no t detected. Does NOT exclude the possibility of recent exposure to HCV. Blood specimen (specimen) 08/19/2020 12:07 PM JUNIOR LEGAL SECRETARY 08/19/2020 12:15 PM JUNIOR LEGAL SECRETARY Humza Trevizo MD LAB MICROB IOLOGY - GENERAL ORDERABLES Edited Result - Final Performing Organization Address [facility] Co de Phone Number [facility] [place] [address] * (ABNORMAL) Hemoglobin A1c (09/04/2019 12:14 AM JUNIOR LEGAL SECRETARY) Hgb A1C 8.2(H) 4.0 - 5.6 % [facility] Estimated Average Glucose 189 mg/dL [facility] Comment: The ADA recommends reporting an estimated Average Glucose (eAG) with all Hemoglobin A1c results using the equation derived from a study of 507 normal and diabetic adults. Minority populations were underrepresented and children were not included. (Diabetes Care 31:3792-5655, 2008). The eAG is not equivalent to a fasting glucose. Blood specimen (specimen) 09/04/2019 12:14 AM JUNIOR LEGAL SECRETARY 09/04/2019 12:58 AM JUNIOR LEGAL SECRETARY Brandin Pena MD LAB BLOOD ORDERABLES Final Result Performing Organization Address [facility] de Phone Number [facility] [place] [address] from Last 3 Months or Most Recently Relevant to Health Maintenance Insurance [facility] MEDICARE ADVANTAGE [facility] Address: [facility] [address] [place] [address] IDPA MEDICARE RESEARCH [facility] MEDICARE ADVANTAGE [employer] [facility] MEDICARE ADVANTAGE [facility] Address: [address] [address] [place] [address] IDPA Advance Directives For more information, please contact: [phone] * Full Code (Latest Code Status on [...] 11:07 PM 09/04/2019 6:57 PM Care Teams Urologist Relationship Specialty Start Date End Date David Coppola MD PCP - General Family Medicine 10/29/17 Jacob Suarez MD Referring Physician Nephrology 12/20/18 Ros Seay MD Top Lift Nailer Cardiology 03/05/19 Abdifatah Vlila MD [address] [facility] [address] [place] [address] Consulting Physician Cardiology 09/01/20 Issa Clements MD [address] [facility] [address] [place] [address] Referring Physician General Surgery 09/01/20
--- OUTSIDE RECORDS SUMMARY | 2025-04-27 19:26 | XMS_ITS | Encounter Summary ---
Author Organization [facility] Health Address [address] [place] [address] Care Team Providers Care Oracle Distribution Consultant Name Role Phone David Coppola MD Primary Care Provider + [phone] David Coppola MD Primary Care Provider + [phone] David Coppola MD Unavailable [phone] David Coppola MD Unavailable [phone] Virginie Corea RN Unavailable [phone] Encounter Details Date Type Department Care Team (Late st Contact Info) Description 02/08/2015 SS Outpatient Visit EXTERNAL NON-[facility] [place] [address] [id number] Social History Tobacco Use Types Packs/Day Years Used Date Smoking Tobacco: Never Alcohol Use Standard Drinks/Week Comments No 0 (1 standard drink = 0.6 oz pur e alcohol) Comments Unknown Sex and Gender Information Value Date Recorded Sex Assigned at Not on file Legal Sex Female 5:40 PM LAVATORY ATTENDANT Gender Identity Not on file Sexual Orientation Not on file documented as of this encounter Plan of Treatment Upcoming Encounters Date Type Department Care Team (Late Contact Info) Description 06/16/2025 1:00 PM LAVATORY ATTENDANT Procedure visit [facility] - [address] [phone] 06/16/2025 1:30 PM LAVATORY ATTENDANT Office Visit [facility] [place] [address] [facility], [place] [address] Avis Dumont, BAR GAUGER AND LUBRICATOR TENDER-BRANCH SERVICE REPRESENTATIVE [address] [place] [address] documented as of this encounter Visit Diagnoses Not on filedocumented in this encounter Care Teams Oracle Distribution Consultant Relationship Specialty Start Date End Date David Coppola MD [address] [place] [phone] PCP - General Family Medicine 02/08/15 08/14/16 David Coppola MD [address] [place] [phone] PCP - General 08/15/16 David Coppola MD [address] [place] [phone] Family Medicine 02/08/15 David Coppola MD [address] [place] [phone] Family Medicine 08/15/16 Virginie Corea, ABENA Regional Sales Leader 02/23/15 documented as of this encounter
--- OUTSIDE RECORDS SUMMARY | 2025-04-27 19:26 | XMS_ITS | Clinical Summary ---
Author Organization [facility] Address [address] [place] [address] Phone Care Team Providers Care Balancer Scale Name Role Phone David Coppola MD Primary Care Provider [phone] Allergies Active Allergy Reactions Criticality Noted Date [...] Comments Blood Pressure 71/53 09/01/2020 2:54 PM CENTRAL OFFICE MECHANIC 148 /36 Pulse 72 09/01/2020 2:54 PM CENTRAL OFFICE MECHANIC Temperature 36.4 C (97.6 F) 09/01/2020 2:54 PM CENTRAL OFFICE MECHANIC Respiratory Rate - - Oxygen Saturation 97% 09/01/2020 2:54 PM CENTRAL OFFICE MECHANIC Inhaled Oxygen Concentration - - Weight 56.6 kg (124 lb 11.2 oz) 09/01/2020 2:54 PM CENTRAL OFFICE MECHANIC Height 144.8 cm (4' 9) 09/01/2020 2:54 PM CENTRAL OFFICE MECHANIC Body Mass Index 26.98 09/01/2020 2:54 PM CENTRAL OFFICE MECHANIC Plan of Treatment Health Maintenance Due Date [...] 1 , 04/09/2014, 04/09/2014 Insurance MEDICAID [facility] [facility] [id number] Care Teams Balancer Scale Relationship Specialty Start Date End Date David Coppola MD PCP - General Family Practice 05/14/20
--- OUTSIDE RECORDS SUMMARY | 2025-04-27 19:26 | XMS_ITS ---
Author Organization [facility] [address] Address [address] [place] [address] Care Team Providers Care Silo Operator Name Role Phone David Coppola MD Primary Care Provider [phone] Jacob Suarez MD Unavailable [phone] Ros Seay MD Unavailable Abdifatah Villa MD Unavailable Issa Clements MD Unavailable [phone] Dialysis Access Sites Type Status Location [...] Routine) 03/19/2025 12:37 PM CDT Atherosclerosis of [place] artery of right lower extremity with other [...] 4 :29 PM CDT DIALYSIS FISTULAGRAM W SVP PROGRAMMATIC TV PERIPHERAL SEGMENT Schedule Routine, Read Routine (OP Routine) 03/18/2025 1:58 PM CDT ESRD (end stage renal disease) on dialysis (HCC) LIPID PANEL Routine 11/21/2024 6:31 AM CDT PAD (peripheral artery disease) HEPATITIS C ANTIBODY Routine 08/19/2020 12:07 PM OFFICE AIDE ESRD (end stage renal disease) (HCC) HEMOGLOBIN A1C Routine 09/04/2019 12:14 AM OFFICE AIDE from Last 3 Months or Most Recently [...] GIB. Patients daughter reports recent admission to [facility] due to concern for GIB. Patient followed up with her outpatient GI. Planning for EGD at the end of November - continue PPI. Assessment & Plan (11/21/2024 3:03 PM CDT): History of peptic ulcer with GIB. Patients daughter reports recent admission to [facility] due to concern for GIB. Patient followed up with her outpatient GI. Planning for EGD at the end of November - closely monitor for bleeding due to starting asa and Plavix as above - continue PPI Assessment & Plan (08/28/2024 1:08 PM OFFICE AIDE): History of peptic ulcer with GIB Denies [...] 08/21/2020 Assessment & Plan (08/28/2024 1:05 PM OFFICE AIDE): Home regimen Januvia, tresiba 10 and Victoza. Reviewed PCP records noted hypoglycemia last hospital admit with basal insulins continued Will continue januvia and hold tresiba and victoza SSI Family history of ischemic h eart disease and other diseases of the circulatory system 11/27/2019 Critical limb ischemia of right lower extremity 10/14/2019 Overview (10/14/2019): Added automatically from request for surgery [id number] Assessment & Plan (03/20/2025 3:52 PM CDT): [...] Plavix) 2/2 bleeding -Repeat revascularization with IR / -given ASA/Brilinta post operatively, awaiting additional recs [...] @[place] Assessment & Plan (08/28/2024 12:59 PM OFFICE AIDE): S/p uncomplicated balloon angioplasty of the AT, [...] (10/14/2019): Added automatically from request for surgery [id number] Presence of Watchman left atrial appendage closu re device 08/29/2018 Atrial fibrillation 06/13/2018 Overview (06/13/2018): Added automatically from request for surgery [id number] Assessment & Plan (03/20/2025 3:52 PM CDT): [...] below Assessment & Plan (08/28/2024 1:03 PM OFFICE AIDE): Follows with [facility] cardi[facility]. Rate controlled and s/p Watchman due to prior severe GIB Recently stopped coreg due to bradycardia ASA and plavix to start per IR recs post revascularization Assessment & Plan (07/24/2018 9:29 AM OFFICE AIDE): Continue coreg. S/p Watchmann DAVIDA occluder implant for future deescalate anticoagulation. Continue apixiban for now as per EP. Post procedure CXR. 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 Hyperlipidemia associated [...] today Assessment & Plan (08/29/2024 4:04 PM OFFICE AIDE): Routine M/W/F r brachial fistula (has required multiple dilations last at [facility] 07/2024 Feeling well post procedure denies dyspnea. Renal consulted for HD prior to discharge Assessment & Plan (07/24/2018 9:26 AM OFFICE AIDE): HD as per renal consult. Resume outpt [...] often do you attend chur ch or religion services? 1 to 4 times per year [...] on file Legal Sex Female 12:39 PM OFFICE AIDE Gender Identity Not on file Sexual Orientation [...] 25.09 03/19/2025 12:02 PM CDT Results * Cardiology Document Scan (04/01/2025 11:36 AM CDT) Anatomical Region Laterality Modality Other Maria Eugenia Esteves NP CV CARDIAC SERVICE S PROCEDURES Final Result * Cardiology Document Scan (03/31/2025 3:52 PM CDT) Anatomical Region Laterality Modality Other Maria [...] - DEVICE Final Result Performing Organization Address [facility] de Phone Number GUILLERMINA [facility] Department [place] [address] * (ABNORMAL) eGFR (03/19/2025 8:25 PM CDT) [facility] eGFR 20(L) >=60 mL/min/1. 73 m2 Comment: [...] ORDERABLES Fin al Result Performing Organization Address [facility] Co de Phone Number [facility] [place] [address] * (ABNORMAL) Differential, auto (03/19/2025 8:25 PM CDT) [facility] Neutrophil abs 5.34 1.50 - 6.50 K/cumm Imm gran abs 0.02 0.00 - 0.10 K/cumm [facility] Lymphocyte abs 0.56(L) 0.80 - 3.30 K/cumm [facility] Monocyte abs 0.53 0.20 - 0.80 K/cumm [facility] Eosinophil abs 0.03 0.00 - 0.50 K/cumm [facility] Basophil abs 0.03 0.00 - 0.10 K/cumm [facility] Neutrophil pct 82.0 % [facility] Comment: Interpretive Data Percent cell count reference ranges are not reported, since discordance with absolute values may lead to misinterpretation of CBC data. Current Interpretive Data was last revised on 2017. Imm gran pct 0.3 % [facility] Comment: Interpretive Data Percent cell count reference ranges are not reported, since discordance with absolute values may lead to misinterpretation of CBC data. Current Interpretive Data was last revised on 2017. Lymphocyte pct 8.6 % [facility] Comment: Interpretive Data Percent cell count reference ranges are not reported, since discordance with absolute values may lead to misinterpretation of CBC data. Current Interpretive Data was last revised on 2017. Monocyte pct 8.1 % [facility] Comment: Interpretive Data Percent cell count reference ranges are not reported, since discordance with absolute values may lead to misinterpretation of CBC data. Current Interpretive Data was last revised on 2017. Eosinophil pct 0.5 % [facility] Comment: Interpretive Data Percent cell count reference ranges are not reported, since discordance with absolute values may lead to misinterpretation of CBC data. Current Interpretive Data was last revised on 2017. Basophil pct 0.5 % [facility] Comment: Interpretive Data Percent cell count reference ranges are not reported, since discordance with absolute values may lead to misinterpretation of CBC data. Current Interpretive Data was last revised on 2017. Blood 03/19/2025 8:25 PM CDT 03/19/2025 8:36 PM CDT us Claudia Nicole LIFE GUARD LAB BLOOD ORDERABLES Fin al Result GUILLERMINA [facility] Department [place] [address] * (ABNORMAL) CBC with auto differential (03/19/2025 8:25 PM CDT) [facility] WBC 6.51 3.80 - 9.90 K/cumm Hgb 8.2(L) 11.9 - 15.5 g/dL [facility] Hct 26.9(L) 35.6 - 45.5 % [facility] Plt 111(L) 150 - 400 K/cumm [facility] MPV 11.6 9.1 - 12.3 fL [facility] RBC 2.63(L) 3.90 - 5.20 M/cumm [facility] MCV 102.3(H) 81.3 - 96.4 fL [facility] MCH 31.2 27.1 - 33.3 pg [facility] MCHC 30.5(L) 32.3 - 35.7 g/dL [facility] RDW CV 15.6(H) 11.1 - 14.9 % [facility] RDW SD 58.1(H) 35.7 - 48.1 fL [facility] NRBC abs 0.00 0.00 - 0.01 K/cumm [facility] Blood 03/19/2025 8:25 PM CDT 03/19/2025 8:36 PM CDT Claudia Nicole LIFE GUARD LAB BLOOD ORDERABLES Fin al Result [facility] [place] [address] * (ABNORMAL) Basic metabolic panel (03/19/2025 8:25 PM CDT) [facility] Sodium 135 135 - 145 mmol/L Potassium, pl 4.1 3.3 - 4.9 mmol/L [facility] Chloride 94(L) 97 - 110 mmol/L [facility] CO2 28 22 - 32 mmol/L [facility] Anion gap 13 2 - 15 mmol/L [facility] BUN 15 6 - 25 mg/dL [facility] Creatinine 2.38(H) 0.60 - 1.10 mg/dL [facility] Glucose 137 70 - 199 mg/dL [facility] Comment: Interpretive Data Fasting glucose [...] 2022. Calcium 8.7 8.5 - 10.3 mg/dL [facility] Blood 03/19/2025 8:25 PM CDT 03/19/2025 8:36 PM CDT Claudia Nicole NP LAB BLOOD ORDERABLES Fin al Result Performing Organization Address [facility] Co de Phone Number [facility] Department [place] [address] * POCT glucose (03/19/2025 7:48 PM CDT) Glucose, POC 140 70 - 199 mg/dL Blood 03/19/2025 7:48 PM CDT 03/19/2025 7:48 PM CDT Lew Brooke MD LAB POCT ORDERABLES - DEVICE Final Result Performing Organization Address City/[facility]/ZIP Co de Phone Number [facility] [place] [address] * POCT glucose (03/19/2025 5:45 PM CDT) Glucose, POC 137 70 - 199 mg/dL Blood 03/19/2025 5:45 PM CDT 03/19/2025 5:45 PM CDT Lew Brooke MD LAB POCT ORDERABLES - DEVICE Final Result Performing Organization Address [facility] Co de Phone Number [facility] [place] [address] * (ABNORMAL) POCT Activated clotting time, low range (03/19/2025 2:50 PM CDT) ACT 290(H) 123 - 168 sec POC Device Number [id number] [facility] Blood 03/19/2025 2:50 PM CDT 03/19/2025 2:50 PM CDT us Lew Brooke MD LAB POCT ORDERABLES - DEVICE Final Result Performing Organization Address [facility] Co de Phone Number [facility] [place] [address] * (ABNORMAL) POCT Activated clotting time, low range (03/19/2025 1:56 PM CDT) ACT 348(H) 123 - 168 sec POC Device Number [id number] [facility] Blood 03/19/2025 1:56 PM CDT 03/19/2025 1:56 PM CDT us Lew Brooke MD LAB POCT ORDERABLES - DEVICE Final Result Performing Organization Address [facility] Co de Phone Number [facility] [place] [address] * IR Angiogram Lower Extremity Right (03/19/2025 [...] was obtained. Prior to beginning the procedure, Warren Protocol was performed to confirm the patient's [...] the patent vessel was recorded. A 6Fr Emirati sheath was placed and the right lower extremity angiogram was performed in stations to the foot A 6-Emirati 45 cm sheath was advanced to the [...] was obtained. Prior to beginning the procedure, Warren Protocol was performed to confirm the patient's [...] the patent vessel was recorded. A 6Fr Emirati sheath was placed and the right lower extremity angiogram was performed in stations to the foot A 6-Emirati 45 cm sheath was advanced to the [...] * POCT glucose (03/19/2025 7:47 AM CDT) [facility] Glucose, POC 155 70 - 199 mg/dL Blood 03/19/2025 7:47 AM CDT 03/19/2025 7:47 AM CDT Lew Brooke MD LAB POCT ORDERABLES - DEVICE Final Result [facility] [place] [address] * Hepatitis B Surface Antigen Blood (03/19/2025 7:26 AM CDT) [facility] HepBsAg Nonreactive Nonreactive Blood 03/19/2025 7:26 AM CDT 03/19/2025 7:52 AM CDT Satya Brooke MD LAB MICROBIOLOGY - GEN ERAL ORDERABLES Final Result [facility] Department [place] [address] * (ABNORMAL) eGFR (03/18/2025 8:29 PM CDT) [facility] eGFR 8(L) >=60 mL/min/1. 73 m2 Comment: [...] MD LAB BLOOD ORDERA BLES Final Result [facility] [place] [address] * Differential, auto (03/18/2025 8:29 PM CDT) Neutrophil abs 2.87 1.50 - 6.50 K/cumm Imm gran abs 0.01 0.00 - 0.10 K/cumm [facility] Lymphocyte abs 1.21 0.80 - 3.30 K/cumm [facility] Monocyte abs 0.50 0.20 - 0.80 K/cumm [facility] Eosinophil abs 0.07 0.00 - 0.50 K/cumm [facility] Basophil abs 0.03 0.00 - 0.10 K/cumm [facility] Neutrophil pct 61.2 % [facility] Comment: Interpretive Data Percent cell count reference ranges are not reported, since discordance with absolute values may lead to misinterpretation of CBC data. Current Interpretive Data was last revised on 2017. Imm gran pct 0.2 % [facility] Comment: Interpretive Data Percent cell count reference ranges are not reported, since discordance with absolute values may lead to misinterpretation of CBC data. Current Interpretive Data was last revised on 2017. Lymphocyte pct 25.8 % [facility] Comment: Interpretive Data Percent cell count reference ranges are not reported, since discordance with absolute values may lead to misinterpretation of CBC data. Current Interpretive Data was last revised on 2017. Monocyte pct 10.7 % [facility] Comment: Interpretive Data Percent cell count reference ranges are not reported, since discordance with absolute values may lead to misinterpretation of CBC data. Current Interpretive Data was last revised on 2017. Eosinophil pct 1.5 % [facility] Comment: Interpretive Data Percent cell count reference ranges are not reported, since discordance with absolute values may lead to misinterpretation of CBC data. Current Interpretive Data was last revised on 2017. Basophil pct 0.6 % [facility] Comment: Interpretive Data Percent cell count reference ranges are not reported, since discordance with absolute values may lead to misinterpretation of CBC data. Current Interpretive Data was last revised on 2017. Blood 03/18/2025 8:29 PM CDT 03/18/2025 9:01 PM CDT us Layton [place] MD LAB BLOOD ORDERA BLES Final Result [facility] [place] [address] * (ABNORMAL) CBC with auto differential (03/18/2025 8:29 PM CDT) WBC 4.69 3.80 - 9.90 K/cumm Hgb 7.0(L) 11.9 - 15.5 g/dL [facility] Hct 23.3(L) 35.6 - 45.5 % [facility] Plt 103(L) 150 - 400 K/cumm [facility] MPV 12.6(H) 9.1 - 12.3 fL [facility] RBC 2.27(L) 3.90 - 5.20 M/cumm [facility] MCV 102.6(H) 81.3 - 96.4 fL [facility] MCH 30.8 27.1 - 33.3 pg [facility] MCHC 30.0(L) 32.3 - 35.7 g/dL [facility] RDW CV 15.7(H) 11.1 - 14.9 % [facility] RDW SD 59.2(H) 35.7 - 48.1 fL [facility] NRBC abs 0.00 0.00 - 0.01 K/cumm [facility] Blood 03/18/2025 8:29 PM CDT 03/18/2025 9:01 PM CDT Layton [place] MD LAB BLOOD ORDERA BLES Final Result Performing Organization Address City/[facility]/ZIP Co de Phone Number [facility] [place] [address] * (ABNORMAL) Phosphorus (03/18/2025 8:29 PM CDT) Phosphorus, pl 5.6(H) 2.3 - 4.5 mg/dL Blood 03/18/2025 8:29 PM CDT 03/18/2025 8:55 PM CDT Layton [place] MD LAB BLOOD ORDERA BLES Final Result [facility] [place] [address] * Magnesium (03/18/2025 8:29 PM CDT) Magnesium 2.4 1.4 - 2.5 mg/dL Blood 03/18/2025 8:29 PM CDT 03/18/2025 8:55 PM CDT Layton [place] MD LAB BLOOD ORDERA BLES Final Result [facility] [place] [address] * (ABNORMAL) Comprehensive metabolic panel (03/18/2025 8:29 PM CDT) Sodium 137 135 - 145 mmol/L Potassium, pl 4.9 3.3 - 4.9 mmol/L [facility] Chloride 96(L) 97 - 110 mmol/L [facility] CO2 31 22 - 32 mmol/L [facility] Anion gap 10 2 - 15 mmol/L [facility] BUN 46(H) 6 - 25 mg/dL [facility] Creatinine 5.22(H) 0.60 - 1.10 mg/dL [facility] Glucose 242(H) 70 - 199 mg/dL [facility] Comment: Interpretive Data Fasting glucose [...] 2022. Calcium 10.4(H) 8.5 - 10.3 mg/dL [facility] Bilirubin, total 0.3 0.1 - 1.2 mg/dL [facility] Protein, pl 5.5(L) 6.5 - 8.5 g/dL [facility] Albumin 3.2(L) 3.5 - 5.0 g/dL [facility] Alk phos 126 40 - 130 Units/L [facility] ALT 22 7 - 45 Units/L [facility] AST 30 10 - 45 Units/L [facility] Blood 03/18/2025 8:29 PM CDT 03/18/2025 8:55 PM CDT us Layton [place] MD LAB BLOOD ORDERA BLES Final Result Performing Organization Address [facility] Co de Phone Number [facility] [place] [place] [address] * (ABNORMAL) POCT glucose (03/18/2025 7:52 PM CDT) Glucose, POC 280(H) 70 - 199 mg/dL Blood 03/18/2025 7:52 PM CDT 03/18/2025 7:52 PM CDT us Layton [place] MD LAB POCT ORDERAB LES - DEVICE Final Result Performing Organization Address [facility] de Phone Number [facility] [place] [address] * POCT glucose (03/18/2025 4:29 PM CDT) Glucose, POC 128 70 - 199 mg/dL Blood 03/18/2025 4:29 PM CDT 03/18/2025 4:29 PM CDT us Layton [place] MD LAB POCT ORDERAB LES - DEVICE Final Result Performing Organization Address [facility] [place] [address] * IR Dialysis Fgram W SVP PROGRAMMATIC TV Peripheral Segment (03/18/2025 1:58 PM CDT) Anatomical [...] the procedure. Dr. Scotty Jay M.D. (residential care officer) was present and participated in the procedure. SEDATION: Procedural sedation was administered under the attending physician's direction and continuous monitoring by a trained nurse specialist who was independent from those actually performing the procedure. Total monitored sedation time was 60 minutes. TECHNIQUE: The risks, benefits and alternatives were discussed and informed consent was obtained. Prior to beginning the procedure, Warren Protocol was performed to confirm the patient's [...] graft followed by placement of a 5 czech catheter. Fluoroscopy was used for all catheter and guidewire manipulations. Multiple DSA images were obtained to visualize the dialysis access from the arterial anastomosis through the vena cava. After identifying a stenosis a 6-Emirati sheath was placed. The patient was given [...] using a 8 mm x 40 mm [place] high-pressure balloon. At the end of the [...] the procedure. Dr. Scotty Jay M.D. (residential care officer) was present and participated in the procedure. SEDATION: Procedural sedation was administered under the attending physician's direction and continuous monitoring by a trained nurse specialist who was independent from those actually performing the procedure. Total monitored sedation time was 60 minutes. TECHNIQUE: The risks, benefits and alternatives were discussed and informed consent was obtained. Prior to beginning the procedure, Warren Protocol was performed to confirm the patient's [...] graft followed by placement of a 5 czech catheter. Fluoroscopy was used for all catheter and guidewire manipulations. Multiple DSA images were obtained to visualize the dialysis access from the arterial anastomosis through the vena cava. After identifying a stenosis a 6-Emirati sheath was placed. The patient was given [...] using a 8 mm x 40 mm [place] high-pressure balloon. At the end of the [...] by: Ar Aj M.D. Layton [place] MD [facility] IR PROCEDURE S Final Result * (ABNORMAL) [...] on 2018. Triglycerides 90 <=149 mg/dL [facility] Comment: Interpretive Data Ages < [...] on 2018. HDL 35(L) >=40 mg/dL [facility] Comment: Interpretive Data Ages < [...] 2018. LDL, calculated 46 <=129 mg/dL [facility] Comment: Interpretive Data Ages < [...] on 2024. Non-HDL Cholesterol 64 mg/dL [facility] Comment: Interpretive Data Ages < [...] revised on 2018. Chol/HDL ratio 3 [facility] Blood 11/21/2024 6:31 AM CDT 11/21/2024 6:47 AM CDT Anthony Gorman MD LAB BLOOD ORDERABLES Fi nal Result [facility] [place] [address] * Hepatitis C antibody (08/19/2020 12:07 PM OFFICE AIDE) Hep C Ab Nonreactive Nonreactive [facility] Comment:Antibodies to HCV no t detected. Does NOT exclude the possibility of recent exposure to HCV. Blood specimen (specimen) 08/19/2020 12:07 PM OFFICE AIDE 08/19/2020 12:15 PM OFFICE AIDE us Humza Trevizo MD LAB MICROB IOLOGY - GENERAL ORDERABLES Edited Result - Final Performing Organization Address [facility] Co de Phone Number [facility] [place] [place] [address] * (ABNORMAL) Hemoglobin A1c (09/04/2019 12:14 AM OFFICE AIDE) Hgb A1C 8.2(H) 4.0 - 5.6 % [facility] Estimated Average Glucose 189 mg/dL [facility] Comment: The ADA recommends reporting an estimated Average Glucose (eAG) with all Hemoglobin A1c results using the equation derived from a study of 507 normal and diabetic adults. Minority populations were underrepresented and children were not included. (Diabetes Care 31:8256-2723, 2008). The eAG is not equivalent to a fasting glucose. Blood specimen (specimen) 09/04/2019 12:14 AM OFFICE AIDE 09/04/2019 12:58 AM OFFICE AIDE us Brandin Pena MD LAB BLOOD ORDERABLES Final Result Performing Organization Address City/[facility]/ZIP Co de Phone Number [facility] [place] [address] from Last 3 Months or Most Recently Relevant to Health Maintenance
--- OUTSIDE RECORDS SUMMARY | 2025-04-27 19:26 | XMS_ITS | Encounter Summary ---
Author Organization [facility] Address [address] [place] [address] Care Team Providers Care Sales And Operations Trainee Name Role Phone David Coppola MD Primary Care Provider + [phone] David Coppola MD Unavailable [phone] David Coppola MD Unavailable [phone] Virginie Corea RN Unavailable [phone] Encounter Details Date Type Department Care Team (Late st Contact Info) Description 04/10/2018 Nutrition [facility] TRANSPLANT [address] [place] [id number] Lindsay Gardner [address]/LAURA Social History Tobacco Use Types Packs/Day Years Used Date Smoking Tobacco: Never Smokeless Tobacco: Never Alcohol Use Standard Drinks/Week Comments No 0 (1 standard drink = 0.6 oz pur e alcohol) Comments No Sex and Gender Information Value Date Recorded Sex Assigned at Not on file Legal Sex Female 5:40 PM PATIENT FINANCIAL COUNSELOR Gender Identity Not on file Sexual Orientation [...] st Contact Info) Description 06/16/2025 1:00 PM PATIENT FINANCIAL COUNSELOR Procedure visit [facility] [address] [facility], [place] [address] 06/16/2025 1:30 PM PATIENT FINANCIAL COUNSELOR Office Visit [facility] [address] [facility], [place] [address] Avis Dumont, BOX TENDER-BILLIARD TABLE ASSEMBLER [address] [address] documented as of this encounter Visit Diagnoses Not on filedocumented in this encounter Care Teams Sales And Operations Trainee Relationship Specialty Start Date End Date David Coppola MD [address] [place] [phone] PCP - General 08/15/16 David Coppola MD [address] [place] [phone] Family Medicine 02/08/15 David Coppola MD [address] [place] [phone] Family Medicine 08/15/16 Virginie Corea, ABENA Operation Manager 02/23/15 documented as of this encounter
--- OUTSIDE RECORDS SUMMARY | 2025-04-27 19:27 | XMS_ITS | Encounter Summary ---
Author Organization [facility] Healthcare Address [address] [place] [address] Care Team Providers Care Fleet Assistant Name Role Phone David Coppola MD Primary Care Provider [phone] Jacob Suarez MD Unavailable [phone] Ros Seay MD Unavailable [phone] Abdifatah Villa MD Unavailable Issa Clements MD Unavailable [phone] Encounter Details Date Type Department Care Team (Late st Contact Info) Description 03/16/2025 Telephone [facility] Radiology [address] [place], [place] [id number] Yaritza Golden RN Social History Tobacco Use [...] often do you attend chur ch or congregational services? 1 to 4 times per year 09/04/2019 Do you belong to any clubs o r organizations such as yarsani groups, unions, fraternal or athletic groups, or [...] on file Legal Sex Female 12:39 PM NEW CLIENT BANKING SERVICES CLERK Gender Identity Not on file Sexual Orientation Not on file documented as of this encounter Plan of Treatment Scheduled Procedures Name Priority Associated Diagnoses Date/Ti me TRANSPLANT KIDNEY ESRD (end stage renal disease) (HCC) documented as of this encounter Visit Diagnoses Not on filedocumented in this encounter Care Teams Fleet Assistant Relationship Specialty Start Date End Date David Coppola MD PCP - General Family Medicine 10/29/17 Jacob Suarez MD Referring Physician Nephrology 12/20/18 Ros Seay MD Hat And Cap Parts Cutter Hand Cardiology 03/05/19 Abdifatah Villa MD [address] [place] [address] Consulting Physician Cardiology 09/01/20 Issa Clements MD [address] [facility] [address] [place] [address] Referring Physician General Surgery 09/01/20 documented as of this encounter
--- OUTSIDE RECORDS SUMMARY | 2025-04-27 19:27 | XMS_ITS | Encounter Summary ---
Author Organization [facility] Address [address] [place] [address] Phone Care Team Providers Care Bank Examiner Name Role Phone David Coppola MD Primary Care Provider [phone] Jacob Suarez MD Unavailable [phone] Marnie Lara RN Unavailable [phone] Ros Seay MD Unavailable Johana Edmond RN Unavailable Abdifatah Villa MD Unavailable Issa Clements MD Unavailable [phone] Encounter Details Date Type Department Care Team (Late st Contact Info) Description 05/13/2018 Telephone [facility] Cardiology [address] [facility] Advanced Medicine 8th [place] [address] [place] [address] Cameron Haro MD [address] [place] [address] Social History Tobacco Use Types Packs/Day Years Used Date Smoking Tobacco: Never Smokeless Tobacco: Never Alcohol Use Standard Drinks/Week Comments No 0 (1 standard drink = 0.6 oz pur e alcohol) Comments No Sex and Gender Information Value Date Recorded Sex Assigned at Not on file 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 [address] [place] [address] Deputy Sheriff Custody 08/21/19 Abdifatah Villa MD [address] [place] [address] Consulting Physician Cardiology 09/01/20 Issa Clements MD [address] [facility] [address] [place] [address] Referring Physician General Surgery 09/01/20 documented as of this encounter
--- OUTSIDE RECORDS SUMMARY | 2025-04-27 19:27 | XMS_ITS | Clinical Summary ---
Author Organization [facility] Address [address] [place] [address] Phone Care Team Providers Care Technical Services Consultant Name Role Phone David Coppola MD Primary Care Provider [phone] Allergies Active Allergy Reactions Criticality Noted Date [...] mouth daily. Take only on dialysis days 5 Active B Myqnidc-T-Edhrb Acid (Triphrocaps) 1 MG Capsule Take 1 [...] PO Take 81 mg by mouth daily. 5 Active OXYCODONE HCL PO Take 5 mg by mouth 5 times daily as needed for Other (for sever pain). 5 Active clopidogrel (PLAVIX) 75 MG Tablet Take 75 mg by mouth daily. Active sevelamer carbonate (RENVELA) 800 MG Tablet Take 1 Tablet by mouth 3 times daily (with meals). Active Encounters Date Type Department Care Team Description 04/25/2025 12:00 PM CDT Home Care Visit [address] [address] Lindsay Boyd RN SN - OASIS RESUMPTION OF CARE 04/25/2025 Home Care Visit [address] [address] Lindsay Boyd RN TELEPHONE ENCOUNTER 04/25/2025 Plan of Care Documentation [address] [address] 04/23/2025 Home Care Visit [address] [address] Pau Marcos RN CASE COMMUNICATION 04/07/2025 Home Care Visit [address] [address] Ruby Fisher, ABENA CARE CONFERENCE 04/02/2025 Home Care Visit [address] [address] Pau Marcos RN SN - OASIS TRANSFER W/OUT DC 03/31/2025 Home Care Visit [address] [address] Tiffanie Medrano, PT TELEPHONE ENCOUNTER 03/27/2025 Home Care Visit [address] [address] Claudia Aviles OT TELEPHONE ENCOUNTER 03/26/2025 1:00 PM CDT Home Care Visit [address] [address] Ruby Fisher, ABENA APONTE START OF CARE 03/26/2025 Plan of Care Documentation [address] [address] from Last 3 Months Social History Tobacco Use Types Packs/Day Years Used Date Smoking Tobacco: Never Smokeless Tobacco: Never Comments No Sex and Gender Information Value Date Recorded Sex Assigned at Not on file 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 Gender Identity Not on file Sexual Orientation Not on file Last Filed Vital Signs Vital Sign Reading Time Taken Comments Blood Pressure 138/70 04/25/2025 11:23 AM CDT Pulse 72 04/25/2025 11:23 AM CDT Temperature 36.1 C (96.9 F) 04/25/2025 11:23 AM CDT Respiratory Rate 18 03/26/2025 2:10 PM CDT Oxygen Saturation 97% 04/25/2025 11: 23 AM CDT Inhaled Oxygen Concentration - - Weight 48.9 kg (107 lb 12.8 oz) 01/22/2025 1:59 PM CDT Height 142.2 cm (4' 8) 03/26/2025 2:10 PM CDT Body Mass Index 24.17 11/27/2024 4:18 PM CDT Plan of Treatment Upcoming Encounters Date Type Department Care Team (Late st Contact Info) Description 04/28/2025 1:00 AM CDT Appointment [address] [address] Ruby Fisher, ABENA [place] 04/28/2025 11:00 AM CDT [facility] [address] [facility] [place] [address] Claudia Aviles OT 04/28/2025 3:00 PM CDT [facility]ment [facility] [address] [facility] [place] [address] Tiffanie Medrano PT [place] 05/05/2025 1:00 AM CDT [facility]ment [facility] [address] [facility] [place] [address] Pau Marcos RN [place] 05/12/2025 1:00 AM HIDE MILL WORKER Appointment [address] [place] [address] Pau Marcos RN [place] 05/19/2025 1:00 AM HIDE MILL WORKER Appointment [address] [place] [address] Pau Marcos RN [place] Health Maintenance Due Date Last Done Comments DEXA Bone Density 1945 Hepatitis B Immunization (2 of 3 - 19+ 3-dose series) 05/24/2018 04/26/2018 Zoster Immunization (2 of 2) 01/06/2022 11/11/2021 Welcome to Medicare (IPPE) [id number] 07/09/2024 Influenza Immunization (#1) 03/09/202502/07, 05/02/2023, 03/24/2020, Additional [...] to complete this topic Insurance MEDICARE C [facility] Advance Directives * Full Code (Latest Code Status on File) Date Activated Date Inactivated Comments 03/27/2025 11:43 AM * Full Code Date Activated Date Inactivated Comments 12/04/2024 3:52 PM 03/27/2025 11:43 AM Care Teams Technical Services Consultant Relationship Specialty Start Date End Date David Coppola MD [address] [place] [address] [address] [place] [address] PCP - General Family Medicine 11/22/24
--- OUTSIDE RECORDS SUMMARY | 2025-04-27 19:27 | XMS_ITS | Encounter Summary ---
Author Organization [facility] Healthcare Address [address] [place] [address] Care Team Providers Care Tool Designer Apprentice Name Role Phone David Coppola MD Primary Care Provider [phone] Jacob Suarez MD Unavailable [phone] Ros Seay MD Unavailable [phone] Abdifatah Villa MD Unavailable Issa Clements MD Unavailable [phone] Encounter Details Date Type Department Care Team (Late st Contact Info) Description 03/18/2025 Telephone [facility] Radiology [address] [place], [place] [id number] Yaritza Golden RN Social History Tobacco Use [...] often do you attend chur ch or uatsdin services? 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 Gender Identity Not on file Sexual Orientation Not on file documented as of this encounter Plan of Treatment Scheduled Procedures Name Priority Associated Diagnoses Date/Ti me TRANSPLANT KIDNEY ESRD (end stage renal disease) (HCC) documented as of this encounter Visit Diagnoses Not on filedocumented in this encounter Care Teams Tool Designer Apprentice Relationship Specialty Start Date End Date David Coppola MD PCP - General Family Medicine 10/29/17 Jacob Suarez MD Referring Physician Nephrology 12/20/18 Ros Seay MD Change Control Manager Cardiology 03/05/19 Abdifatah Villa MD [address] [place] [address] Consulting Physician Cardiology 09/01/20 Issa Clements MD [address] [facility] [address] [place] [address] Referring Physician General Surgery 09/01/20 documented as of this encounter
--- OUTSIDE RECORDS SUMMARY | 2025-04-27 19:27 | XMS_ITS | Data Portability ---
Author Organization [facility] Formerly [facility], Main Office Address [id number] [place] [id number] Care Team Providers Care Wire [place] Name Role Phone P [facility] FAX OTHER NOY [place] Primary Care Provider [phone] Assessment Encounter Date Assessment Date Assessment LastModified by Organization Details LastModified Time 08/19/2024 08/19/2024 Add colace. Caregiver has been in contact with pt's daughter, who will bring home med list in for our reconciliation. [email or web address] Not available 08/19/2024 13:13:34 08/26/2024 08/26/2024 Add [...] By Organization Details Last Modified Time 08/19/2024 [id number] I spent 33 minutes providing care to the patient today. More than 50% of that time was spent in discussing the expected course of the disease, discussing prognosis, coordinating care and counseling of the patient/family. Not available 08/19/2024 13:14:05 08/26/2024 [id number] I spent 36 minutes providing care to the patient today. More than 50% of that time was spent in discussing the expected course of the disease, discussing prognosis, coordinating care and counseling of the patient/family. Not available 08/26/2024 11:29:08 09/01/2024 [id number] I spent 48 minutes providing care to the patient today. More than 50% of that time was spent in discussing the expected course of the disease, discussing prognosis, coordinating care and counseling of the patient/family. Not available 09/01/2024 14:02:49 09/02/2024 [id number] I spent 16 minutes counseling and discussing advance directives and/or end of life care planning and decisions with the patient and surrogate today. I reviewed the current relevant diagnoses, treatment options, natural history, and prognosis and clarified the patient's goals of care. code status is full [email or web address] Not available 09/04/2024 06:19:59 09/08/2024 [id number] I spent 40 minutes providing care to [...] atrial [place] [address] [address] [facility], [place], [address], [facility] 09/01/2024 13:34:59 07/09/19 18 fluoroscopy guided percutaneous transluminal angioplasty of anterior tibial artery [place] [address] [place], [address], [facility] 09/01/2024 13:35:38 [place]putation [place] [address] [facility], [place], [address], [facility] 08/19/2024 05:12:33 cardiac ablation for atrial [place] [address] [address] [facility], [place], [address], [facility] 09/01/2024 13:34:55 Av fistula [place] [address] [address] [facility], [place], [address], [facility] 09/01/2024 13:35:27 imaging guided percutaneous transluminal angioplasty of blood vessel [place] [address] [address] [facility], [place], [address], [facility] 09/01/2024 13:42:18 Imaging Results None recorded. Procedure Notes None recorded. Medical Equipment None Reported. Allergies Allergen ID Allergen Name Allergen Category Reaction Reaction Severity Criticality Documentation Date Start Date Code Code System Note Provider Name and Address Organization Details Recorded Time 49715 cefazolin medicatio n Not available Not available Not available 08/16/2024 2180 [place], [place] [facility] 5 06:16:17 16443 enalapril Not available Not available Not available Not available 08/16/2024 3827 [place], [place] [facility] 06:16:26 17269 pioglitaz one medicatio n Not available Not available Not available 08/16/2024 24759 Rx[facility] [place], [place] [facility] 5 06:16:35 71580 tramadol medicatio n Not available Not available Not available 08/16/2024 35864 RxNorm [place], [place] [facility] 5 06:16:45 79643 cephalexi n medicatio n Not available Not available Not available 08/17/2024 2231 [facility] [place], [place] [facility] 5 21:18:22 26190 gabapenti n medicatio n Not available Not available Not available 08/17/2024 03234 [facility] [place], [place] [facility] [...] 96 % 103/43 mm[Hg] Florencia Ceron, NIKO [address] [facility], [place], [address], [place] [facility] 5 12:48:20 Date Recorded Body height Heart rate Body temperature Respiratory rate Oxygen saturation Oxygen saturation in Arterial blood by Pulse oximetry Body mass index (BMI) Body weight Systolic And Diastolic Provider Name and Address Organization Details Last Updated DateTime 5 152.4 cm 65 /min 98.5 [degF] 20 /min 97 % 97 % 22.7 kg/m2 69690.1 5 g 134/53 mm[Hg] [place] [address] [place], [address], [facility] 5 10:44:20 Date Recorded Body height Heart rate Body temperature Respiratory rate Oxygen saturation Oxygen saturation in Arterial blood by Pulse oximetry Body mass index (BMI) Body weight Systolic And Diastolic Provider Name and Address Organization Details Last Updated DateTime 5 152.4 cm 75 /min 97.8 [degF] 18 /min 90 % 90 % 22.3 kg/m2 40488.5 3 g 144/57 mm[Hg] [place] [address] [place], [address], [facility] 5 12:48:29 Date Recorded Body height Heart rate Body temperature Respiratory rate Oxygen saturation Oxygen saturation in Arterial blood by Pulse oximetry Body mass index (BMI) Body weight Systolic And Diastolic Provider Name and Address Organization Details Last Updated DateTime 5 152.4 cm 69 /min 98.4 [degF] 18 /min 94 % 94 % 22.3 kg/m2 00734.5 3 g 122/40 mm[Hg] [place] [address] [place], [address], [facility] 5 06:10:21 Date Recorded Body height Heart rate Body temperature Respiratory rate Oxygen saturation Oxygen saturation in Arterial blood by Pulse oximetry Body mass index (BMI) Body weight Systolic And Diastolic Provider Name and Address Organization Details Last Updated DateTime 5 152.4 cm 78 /min 98.5 [degF] 18 /min 93 % 93 % 22.4 kg/m2 83798.6 9 g 156/76 mm[Hg] [place] [address] [place], [address], [place] [facility] 15:15:43 Social History Question Answer Notes LastModified by [employer] Details LastModified Time Tobacco Smoking Status [place] [address] [facility], [place], [address], [place] [facility] 09/04/2024 05:14:35 What Is Your Code Status? Full Code [email or web address] Information not available 08/17/2024 Sex: Unknown Functional Status Question Answer Note LastModified by [employer] Details LastModified Time Do you use any [...] available 2024 05:13:43 Medical History Condition Response Diabetes Y Osteoporosis / Osteopenia Y Atrial Fibrillation Y Chronic Kidney Disease (CKD) Y Hyperlipidemia Y End Stage Renal Disease (ESRD) Y Orthostatic Hypotension Y Anemia Y Constipation Y Vitamin B12 Deficiency Y Peripheral Vascular Disease (PVD) Y Gynecological HistoryNo gynecological history recorded. Obstetrics History GPAL:G 0 P 0 0 0 0 Past Encounters Encounter ID Performer Location Encounter Start Date Encounter Closed Date Diagnosis/Indication Diagnosis SNOMED-CT Code Diagnosis ICD10 Code Diagnosis IMO Codes Diagnosis Note [id number] Alena Ding DO [place] [address] [place] [address] 08/17/2024 18:45:13 09/01/2024 12:09:56 Respiratory syncytial virus infection 14622928 B97.4 treated with a prednisone taper, duonebs, decongesta nts during her hospitaliz ationrespi ratory symptoms are now resolved and supportive meds have been discontinu edO2 has been weanedmoni tor clinically Pneumonia 585640470 J18. 9 She was treated with Levaquin and flagyl during her hospitaliz ationOf note, amoxicilli n was ordered per hospital discharge orders which was an error per Dr. Rosario the dischargin g hospitalis tO2 has been weaned and will monitor for continued need End stage renal failure on dialysis 228033873 N18.6 continue HD at [facility] M/W/FNephr ologist is Daniela Hyperlipidemia 18571526 E78.5 presumed stable - continue statin therapy Peptic ulcer 10985409 K2 7.9 history of GI bleed 2017 [...] and PUD Acute hypo xemic respiratory failure 901656377 J96.01 related to above as well as volume overloadSh e required supplement al O2 and intermitte nt bipap while hospitaliz ed - both are now weaned and respirator y status appears stable - monitor clinically Diabetes mellitus 422205 09 E11.51 HbA1c during her hospitaliz ation was 7.1 (per physician progress note dated 08/11/24)She was treated with only SSI while hospitaliz edresumed tresiba and Victoza last evening, continue daily Januvia as wellwill trend accuchecks and add SSI if needed while here Deep tissu e pressure injury 896432861 T14.8XXA noted to the right lateral heel on admission to last eveninghee l protectors , skin prep daily, offload pressure and monitor closelyper nursing, she also has some superficia l wounds to the buttocks - SWM will be consulted and follow while here Major depr essive disorder 869804814 F32.9 continue trazodonev enlafaxine is noted on inpatient medication list but not continued on discharge - will need to clarify these meds with PCP Vitamin deficiency 75569 002 E56.9 continue Vitamin D and B12 replacemen t Irritable bowel syndrome 13914883 K58.9 continue prn dicyclomin e Peripheral vascular disease 096066859 I73.9 she has previously required toe amputation [...] Gi bleeding/P UD Hypertensi ve renal disease 32899403 I12.9 continue coregtrend pressures/ adjust meds as clinically indicated Physical deconditioning 3013610971 9102 R68.89 related to advanced age, comorbidit ies and recent RSV infection/ pneumoniat herapies will be initiated - she will return home with her children upon d/c from [id number] Alena Ding DO [address] [address] 08/19/2024 10:06:34 09/01/2024 11:41:20 Respiratory syncytial virus infection 44827694 B97.4 Treated with a prednisone taper, duonebs, and decongesta nts during her hospitaliz ation.Resp iratory symptoms are now resolved and supportive meds have been discontinu ed.O2 has been weaned.Reji ramirez clinically . Pneumonia 772084071 J18. 9 She was treated with Levaquin and Flagyl during her hospitaliz ation.Of note, Amoxicilli n was ordered per hospital discharge orders which was an error per Dr. Rosario the dischargin g hospitalis t.O2 has been weaned and will monitor for continued need. Acute hypo xemic respiratory failure 940202887 J96.01 Related to above as well, as volume overload.S he required supplement al O2 and intermitte nt bipap while hospitaliz ed -- both are now weaned and respirator y status appears stable. Monitor clinically . End stage renal failure on dialysis 365577443 N18.6 [facility] with Nephrologi st Dr. Suarez as directed. Hyperlipidemia 07879340 E78.5 Presumed stable. Continue statin. Peptic ulcer 01939823 K2 7.9 History of GI bleed 2017 related to NSAIDS and OAC.She continues on high dose PPI therapy.Marina borreor reports she has frequent nausea and vomiting. None since last visit. Continue PRN Zofran. Atrial fibrillation 4943 6004 I48.91 Previously had a watchman procedure - sounds as though she remains in afib at this time.Stabl e. Continue Coreg for rate control.Marina borrero is NOT on oral anticoagul ation due to history of GI bleeding and PUD. Diabetes mellitus 059698 09 E11.51 HbA1c during her hospitaliz ation was 7.1% (per physician progress note dated 08/11/24).Marina borrero was treated with only SSI while hospitaliz ed.Resumed Tresiba, Victoza, and Januvia upon arrival here.Trend accuchecks and add SSI if needed while here.Famil y is to bring in home medication list for reconcilia tion. Deep tissu e pressure injury 802366570 T14.8XXA Noted to the right lateral heel on admission to .Continu e heel protectors , skin prep , offload pressure, and monitor closely.Pe r nursing, she also has some superficia l wounds to the buttocks.S WM consulted and follow while here. Major depr essive disorder 436550029 F32.9 Stable. Continue Trazodone. Venlafaxin e is noted on inpatient medication list but not continued on discharge. Caregiver has been in contact with pt's daughter, who will bring home med list in for our reconcilia tion. Vitamin deficiency 26207 002 E56.9 Presumed stable. Continue Vitamin D, Calcium, and B12 replacemen t. Irritable bowel syndrome 40227730 K58.9 with chronic diarrhea per pt. Continue PRN Dicyclomin e.Actually constipate d at present. Add Colace daily. Peripheral vascular disease 367646156 I73.9 Previously required toe amputation s to the bilateral feet and angioplast y to the LLE.Follow s routinely with podiatry. Does not follow regularly with vascular at this point.Cont inue to monitor LE closely.Co ntinue statin and good blood pressure control.Marina borrero does not take oral AC or antiplatel et meds due to GI bleeding/P UD. Hypertensi ve renal disease 84303243 I12.9 Stable. Continue Coreg.Cont inue to trend blood pressures, monitor lytes and renal function, and adjust meds as clinically indicated. Physical deconditioning 0782938819 9102 R68.89 Related to advanced age, comorbidit ies and recent RSV infection/ pneumonia. Therapies will be initiated. She will return home with her children upon d/c from . Candidiasis of skin 4988 3006 B37.2 Stable. Continue Clotrimazo le cream. [id number] Alena Ding, DO [address] [address] 08/26/2024 08:27:00 09/01/2024 11:42:01 End stage renal failure on dialysis 705528439 N18.6 Continue HD at [facility] in [place] on //.Cont inue [facility]. F/U with Nephrologi st Dr. Suarez as directed. Hypertensi ve renal disease 56149123 I12.9 Stable. Continue Coreg.Cont inue to trend blood pressures, monitor lytes and renal function, and adjust meds as clinically indicated. Hyperlipidemia 01306195 E78.5 Presumed stable. Continue statin. Atrial fibrillation 4943 6004 I48.91 Previously had a watchman procedure - sounds as though she remains in afib at this time.Stabl e. Continue Coreg for rate control.Marina borrero is NOT on oral anticoagul ation due to history of GI bleeding and PUD. Diabetes mellitus 327338 09 E11.51 HbA1c during her hospitaliz ation was 7.1% (per physician progress note dated 08/11/24).Marina borrero was treated with only SSI while hospitaliz ed.Resumed Tresiba, Victoza, and Januvia upon arrival here. Does continue on SSI. Peripheral vascular disease 233626514 I73.9 Previously required toe amputation s to the bilateral feet and angioplast y to the LLE.Follow s routinely with podiatry. Does not follow regularly with vascular at this point.Cont inue to monitor LE closely.Co ntinue statin and good blood pressure control.Marina borrero does not take oral AC or antiplatel et meds due to GI bleeding/P UD. Deep tissu e pressure injury 016955075 T14.8XXA Noted to the right lateral heel on admission to .Continu e heel protectors , offload pressure, and monitor closely.Cu rrently treating with skin prep.SWM consulted and follow while here. Peptic ulcer 42517278 K2 7.9 History of GI bleed 2017 related to NSAIDS and OAC.She continues on high dose PPI therapy.Sh e reports she has frequent nausea and vomiting. None since last visit. Continue PRN Zofran. Irritable bowel syndrome 17517643 K58.9 with chronic diarrhea per pt. Continue PRN Dicyclomin e.Actually constipate d at present. Add Colace daily. Major depr essive disorder 329919863 F32.9 Venlafaxin e is noted on inpatient medication list but not continued on discharge. Continues on Trazodone alone.traffic manager has been in contact with pt's daughter, who will bring home med list in for our reconcilia tion. Vitamin deficiency 65098 002 E56.9 Presumed stable. Continue Vitamin D, Calcium, and B12 replacemen t. Respirator y syncytial virus infection 14422271 B97.4 Treated with a prednisone taper, duonebs, and decongesta nts during her hospitaliz ation.Resp iratory symptoms are now resolved and supportive meds have been discontinu ed.O2 has been weaned.Mon itor clinically . Pneumonia 675405934 J18. 9 She was treated with Levaquin and Flagyl during her hospitaliz ation.Of note, Amoxicilli n was ordered per hospital discharge orders which was an error per Dr. Rosario the dischargin g hospitalis t.O2 has been weaned and will monitor for continued need. Acute hypo xemic respiratory failure 441798550 J96.01 Related to above as well, as volume overload.S he required supplement al O2 and intermitte nt bipap while hospitaliz ed -- both are now weaned and respirator y status appears stable. Monitor clinically . Physical deconditioning 9523752776 9102 R68.89 Related to advanced age, comorbidit ies and recent RSV infection/ pneumonia. Therapies will be initiated. She will return home with her children upon d/c from [place]. Candidiasis of skin 4988 3006 B37.2 Stable. Continue Clotrimazo le cream. Hemorrhoids 04721255 K64 .9 Improved since addition of Colace.Add PRN Preparatio n H. Insomnia 892779383 G47.0 0 Pt takes Trazodone as OP. Confirmed today dose is 100 mg qhs.Add PRN Melatonin. 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 She has roho w/c pad and air mattress.S WM is following weekly. [id number] Alena Marilyviktoriya, DO [address] [address] 09/01/2024 12:41:19 09/15/2024 21:18:48 Peripheral arterial occlusive disease 901748164 I73.9 Previously required toe amputation s to [...] podiatry. End stage renal failure on dialysis 238635220 N18.6 Continue HD at [facility] on //.Cont inue [facility]. F/U with Nephrologi st Dr. Suarez as directed. Hypertensi ve renal disease 58590284 I12.9 Stable. Continue Coreg.Cont inue to trend blood pressures, monitor lytes and renal function, and adjust meds as clinically indicated. F/U with Dr. Noy Rodriguez on 11/11. Hyperlipidemia 94811382 E78.5 Presumed stable. Continue statin. Atrial fibrillation 4943 6004 I48.91 Previously had a watchman procedure - sounds as though she remains in afib at this time.Stabl e. Continue Coreg for rate control.On baby ASA & Plavix, no stronger OAC due to hx of GIB.F/U with Dr. Noy Rodriguez on 11/11. Diabetes mellitus 079163 09 E11.51 HbA1c during her hospitaliz ation was 7.1% (per physician progress note dated 08/11/24).Marina borrero was treated with only SSI while hospitaliz ed.Resumed Tresiba, Victoza, and Januvia upon arrival here.SSI has been stopped.Mo nitor blood sugars and encourage LCS diet. Deep tissu e pressure injury 134086445 T14.8XXA Noted to the right lateral heel on admission to .Continu e heel protectors , offload pressure, and monitor closely.Cu rrently treating with skin prep.SWM consulted and following while here.Azalia cox underwent balloon angioplast y of this extremity as above. 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 She has roho w/c pad and air mattress.S WM is following weekly. Peptic ulcer 30115260 K2 7.9 History of GI bleed 2017 related to NSAIDS and OAC.She continues on high dose PPI therapy.Marina borrero reports she has frequent nausea and vomiting. None since last visit. Continue PRN Zofran. Irritable bowel syndrome 58651699 K58.9 with chronic diarrhea per pt. Continue PRN Dicyclomin e.Stable. Continue Senna Plus. Hemorrhoids 68340711 K64 .9 Improved since addition of Colace.Con tinue PRN Preparatio n H. Major depr essive disorder 132503218 F32.9 Venlafaxin e is noted on inpatient medication list but not continued on discharge. Stable. Continues on Trazodone for insomnia, but otherwise not on medication . Insomnia 218485114 G47.0 0 Pt takes Trazodone as OP. Confirmed with PCP dose is 100 mg qhs.Contin ue PRN Melatonin, as well. Vitamin deficiency 10373 002 E56.9 Presumed stable. Continue Vitamin D, Calcium, and B12 replacemen t. Candidiasis of skin 4988 3006 B37.2 Stable. Continue Clotrimazo le cream. Respirator y syncytial virus infection 44636269 B97.4 Treated with a prednisone taper, duonebs, and decongesta nts during her hospitaliz ation.Resp iratory symptoms are now resolved and supportive meds have been discontinu ed.O2 has been weaned.Mon itor clinically . Pneumonia 326574840 J18. 9 She was treated with Levaquin and Flagyl during her hospitaliz ation.Of note, Amoxicilli n was ordered per hospital discharge orders which was an error per Dr. Rosario the dischargin g hospitalis t.O2 has been weaned and will monitor for continued need. Acute hypo xemic respiratory failure 930186998 J96.01 Related to above as well, as volume overload.S he required supplement al O2 and intermitte nt bipap while hospitaliz ed -- both are now weaned and respirator y status appears stable. Monitor clinically . Physical deconditioning 4747630375 9102 R68.89 Related to advanced age, comorbidit ies and recent RSV infection/ pneumonia. Therapies will be initiated. She will return home with her children upon d/c from . [id number] Alena Ding, DO [address] [address] 09/02/2024 06:08:21 09/15/2024 21:16:53 Peripheral arterial occlusive disease 664819776 I73.9 Previously required toe amputation s to [...] podiatry. End stage renal failure on dialysis 510571686 N18.6 Continue HD at [facility] in [place] on // - daughter is hopeful to get the patient moved back to the [facility] location - unclear on issues regarding Hep B testing/co ncerns as this is not documented per available hospital recordsCon cirilo Hutch[facility]. F/U with Nephrologi st Dr. Suarez as directed. Hypertensi ve renal disease 40370897 I12.9 Stable. Continue Coreg.Cont inue to trend blood pressures, monitor lytes and renal function, and adjust meds as clinically indicated. F/U with Dr. Noy Rodriguez on 11/11. Hyperlipidemia 58529664 E78.5 Presumed stable. Continue statin. Atrial fibrillation 4943 6004 I48.91 Previously had a watchman procedure - sounds as though she remains in afib at this time.Stabl e. Continue Coreg for rate control.On baby ASA & Plavix, no stronger OAC due to hx of GIB.F/U with Dr. Noy Rodriguez on 11/11. Diabetes mellitus 235896 09 E11.51 HbA1c during her hospitaliz ation was 7.1% (per physician progress note dated 08/11/24).Marina borrero was treated with only SSI while hospitaliz ed.Resumed Tresiba, Victoza, and Januvia upon arrival here.SSI has been stopped.Mo nitor blood sugars and encourage LCS diet. Deep tissu e pressure injury 805104791 T14.8XXA Noted to the right lateral heel on admission to .Continu e heel protectors , offload pressure, and monitor closely.Cu rrently treating with skin prep.SWM consulted and following while here.Azalia tlmala underwent balloon angioplast y of this extremity as above. 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 She has roho w/c pad and air mattress.S WM is following weekly. Peptic ulcer 38150398 K2 7.9 History of GI bleed 2017 related to NSAIDS and OAC.She continues on high dose PPI therapy. gissell reports she has frequent nausea and vomiting. Continue PRN Zofran and monitor closely in light of starting antiplatel et therapy Irritable bowel syndrome 45926466 K58.9 with chronic diarrhea per pt. Continue PRN Dicyclomin e.Stable. Continue Senna Plus and prn miralax for constipati on Hemorrhoids 45126296 K64 .9 continue cathartics Continue PRN Preparatio n H. Major depr essive disorder 637085198 F32.9 Venlafaxin e is noted on inpatient medication list but was not continued on recent hospital discharge. Mood is stable. Continues on Trazodone for insomnia, but otherwise not on medication . Insomnia [id number] G47.0 0 Pt takes Trazodone as OP. Confirmed with PCP dose is 100 mg qhs.Contin ue PRN Melatonin, as well. Vitamin deficiency 95178 002 E56.9 Presumed stable. Continue Vitamin D, Calcium, and B12 replacemen t. Candidiasis of skin 4988 3006 B37.2 Stable. Continue Clotrimazo le cream. Respirator y syncytial virus infection [id number] B97.4 Treated with a prednisone taper, duonebs, and decongesta nts during her hospitaliz ation.Resp iratory symptoms are now resolved and supportive meds have been discontinu ed.O2 has been weaned.Mon itor clinically . Pneumonia [id number] J18. 9 She was treated with Levaquin and Flagyl during her hospitaliz ation.Of note, Amoxicilli n was ordered per hospital discharge orders which was an error per Dr. Rosario the dischargin g hospitalis t.O2 has been weaned and will monitor for continued need. Acute hypo xemic respiratory failure 935272401 J96.01 Related to above as well, as volume overload.S he required supplement al O2 and intermitte nt bipap while hospitaliz ed -- both are now weaned and respirator y status appears stable. Monitor clinically . Physical deconditioning [id number] 9102 R68.89 Related to advanced age, comorbidit ies and recent RSV infection/ pneumonia. Therapies will be initiated. She will return home with her children upon d/c from . [id number] Alena Ding DO [address] [address] 09/08/2024 13:34:43 09/15/2024 21:17:41 Peripheral arterial occlusive disease [id number] I73.9 Previously required toe amputation s to [...] podiatry. End stage renal failure on dialysis 575750227 N18.6 Continue HD at [facility] in [place] on // - daughter is hopeful to get the patient moved back to the [facility] location - unclear on issues regarding Hep B testing/co ncerns as this is not documented per available hospital recordsCon cirilo Hutchison. F/U with Nephrologi st Dr. Suarez as directed. Hypertensi ve renal disease 33576990 I12.9 Stable. Continue Coreg.Cont inue to trend blood pressures, monitor lytes and renal function, and adjust meds as clinically indicated. F/U with Dr. Noy Rodriguez on 11/11. Hyperlipidemia 97907929 E78.5 Presumed stable. Continue statin. Atrial fibrillation 4943 6004 I48.91 Previously had a watchman procedure - sounds as though she remains in afib at this time.Stabl e. Continue Coreg for rate control.On baby ASA & Plavix, no stronger OAC due to hx of GIB.F/U with Dr. Noy Rodriguez on 11/11. Diabetes mellitus 156614 09 E11.51 HbA1c during her hospitaliz ation was 7.1% (per physician progress note dated 08/11/24).Marina borrero was treated with only SSI while hospitaliz ed.Resumed Tresiba, Victoza, and Januvia upon arrival here.SSI has been stopped.Mo nitor blood sugars and encourage LCS diet. Deep tissu e pressure injury 355198044 T14.8XXA Noted to the right lateral heel on admission to .Continu e heel protectors , offload pressure, and monitor closely.Cu rrently treating with skin prep.SWM consulted and following while here.Receiliana tlmala underwent balloon angioplast y of this extremity as above. Pressure i njury of sacral region of back stage III [id number] 5109 L89.153 Small areas to bilateral buttocks and coccyx.Con tinue santyl & calcium alginate daily.Cont inue to offload pressure. She has roho w/c pad and air mattress.S WM is following weekly. Peptic ulcer 88986927 K2 7.9 History of GI bleed 2017 related to NSAIDS and OAC.She continues on high dose PPI therapy.Sh e reports she has frequent nausea and vomiting. Continue PRN Zofran and monitor closely in light of starting antiplatel et therapy Irritable bowel syndrome 76581345 K58.9 with chronic diarrhea per pt. Continue PRN Dicyclomin e.Stable. Continue Senna Plus and prn miralax for constipati on Hemorrhoids 08833849 K64 .9 continue cathartics Continue PRN Preparatio n H. Major depr essive disorder 007488070 F32.9 Venlafaxin e is noted on inpatient medication list but was not continued on recent hospital discharge. Mood is stable. Continues on Trazodone for insomnia, but otherwise not on medication . Insomnia 313884451 G47.0 0 Pt takes Trazodone as OP. Confirmed with PCP dose is 100 mg qhs.Contin ue PRN Melatonin, as well. Vitamin deficiency 61932 002 E56.9 Presumed stable. Continue Vitamin D, Calcium, and B12 replacemen t. Candidiasis of skin 4988 3006 B37.2 Stable. Continue Clotrimazo le cream. Respirator y syncytial virus infection 51129556 B97.4 Treated with a prednisone taper, duonebs, and decongesta nts during her hospitaliz ation.Resp iratory symptoms are now resolved and supportive meds have been discontinu ed.O2 has been weaned.Mon itor clinically . Pneumonia 223784028 J18. 9 She was treated with Levaquin and Flagyl during her hospitaliz ation.Of note, Amoxicilli n was ordered per hospital discharge orders which was an error per Dr. Rosario the dischargin g hospitalis t.O2 has been weaned and will monitor for continued need. Acute hypo xemic respiratory failure 180366751 J96.01 Related to above as well, as [...] Recorded Advance Directives Directive None Recorded Payers Insurance Date Sequence Insurance Name Policy Number Policy Garay Covered Member ID Garay Member ID Guarantor Name 09/15/2024 1 [facility] (MEDICARE REPLACEMENT/A DVANTAGE - PPO) [id number] Shasta Carrillo [id number] Shasta Obando 08/18/2024 2 [place] Shasta Carrillo [id number] Shasta Obando 08/18/2024 2 [place] Shasta Carrillo [id number] Shasta Obando 08/16/2024 1 [place] Shasta Carrillo [id number] Shasta Obando Notes Date Note Type Note Provider Name and Address Organization Details Recorded Time 5 text/html F/U RSV, pneumonia, acute hypoxemic [...] her 3 children in a home in [place]. MOD IND with mobility and ADLS at [...] to run high at times. Florencia Ceron, YEAST DISTILLER [address] [facility], [place], [address], [facility] - [facility] 08/19/2024 13:16:09 5 text/html F/U [...] her 3 children in a home in [place]. MOD IND with mobility and ADLS at [...] of 1 cues . Standing at [facility] Florencia Ceron, NIKO [address] [place], [address], [place] - [facility] 08/26/2024 11:29:26 [...] her 3 children in a home in [place]. MOD IND with mobility and ADLS at [...] . Standing at [employer] CGA---09/01/24Pt was at [facility] from 08/28 to 08/29/24 balloon angioplasty [...] fistula (has required multiple dilations last at [facility] 07/2024. Renal consulted and patient received HD [...] is without concerns today. Florencia Ceron, NIKO [address] [address] [facility], [place], [address], [place] - [facility] 09/01/2024 14:03:56 5 text/html F/U with the patient today after recent balloon angioplasty of the RLE with overnight admission to [facility] 08/28/2024.---08/17/24e patient is a fairly good historian. She [...] her 3 children in a home in [place]. MOD IND with mobility and ADLS at [...] Per therapy notes: Conducted gait training with [facility] ~40' CGA cues for turns. sit/stand Branden of 1 cues . Standing at [facility] CGA---09/01/2024Shasta is seated in her w/c in her room, without concerns or pain to report today. She is heading to dialysis shortly. Her caregiver is at her side. She reports her recent procedure went very well without concerns, although she does note trace edema to her [R] ankle since the procedure. Otherwise perfusion appears normal. VSS. Staff is without concerns today.---09/02/2024Pt was at [facility] from 08/28 to 08/29/24 for balloon [...] with the patient or family while at [facility]. The daughter is also trying to get her dialysis moved back to [place] - Shasta was transferred to the [facility] location in [place] in May 2024 due to testing positive for Hepatitis B although the daughter reports the validity of this positive test has been disputed by GI and ID as repeat testing has been negative. Shasta denies new complaints or concerns today - specifically no GI symptoms. Her RLE remains a bit swollen since the vascular procedure. No nursing [place] [address] [place], [address], [facility] 09/04/2024 06:20:52 5 text/html 79 Y/O female with a history of ESRD on HD x 13 years, IDDM, HTN, OA, PVD, PUD, atrial fibrillation and depression admitted to [place] for post acute rehab subsequent to an inpatient stay at [facility] 08/01-08/16/2024 related to RSV and pneumonia. The patient presented to the ER with a 3 day history of SOB, cough and cold symptoms. She had been on amoxicillin prior to hospital admission related to her symptoms. Please note that there is very limited inpatient documentation sent with the patient from [facility] for review today. No admission H&P and [...] and continued her usual HD schedule of M/W/F. Her hospitalization does not appear to have been further complicated. [facility] fullpharmacy julieta in [place]---08/17/24e patient is a fairly good historian. She [...] her 3 children in a home in [place]. MOD IND with mobility and ADLS at [...] Per therapy notes: Conducted gait training with [facility] ~40' CGA cues for turns. sit/stand Branden of 1 cues . Standing at [facility]---09/01/2024Shasta is seated in her w/c in her room, without concerns or pain to report today. She is heading to dialysis shortly. Her caregiver is at her side. She reports her recent procedure went very well without concerns, although she does note trace edema to her [R] ankle since the procedure. Otherwise perfusion appears normal. VSS. Staff is without concerns today.---09/02/2024Pt was at [facility] from 08/28 to 08/29/24 for balloon [...] with the patient or family while at [facility]. The daughter is also trying to get her dialysis moved back to [place] - Shasta was transferred to the [facility] location in [place] in May 2024 due to testing positive [...] Pt has been issued a LCD on [employer] services for today. She filed a first appeal and lost. She has since filed a 2nd level appeal with determination pending. Florencia Ceron, NIKO [address] [facility], [place], [address], [facility] - [facility] 09/09/2024 08:55:38 OBGyn Episode No OBEpisode recorded.
--- OUTSIDE RECORDS SUMMARY | 2025-04-27 19:28 | XMS_ITS | Encounter Summary ---
Author Organization [facility] Healthcare Address [address] [place] [address] Care Team Providers Care Professor Of Biostatistics Name Role Phone David Coppola MD Primary Care Provider + [phone] Jacob Suarez MD Unavailable [phone] Marnie Lara RN Unavailable [phone] Ros Seay MD Unavailable [phone] Johana Edmond RN Unavailable Abdifatah Villa MD Unavailable Issa Clements MD Unavailable [phone] Encounter Details Date Type Department Care Team (Late st Contact Info) Description 12/11/2018 Orders Only [facility] Health Information Management [address] [place] [address] Scanning, Provider Social History Tobacco Use Types Packs/Day Years Used Date Smoking Tobacco: Never Smokeless Tobacco: Never Alcohol Use Standard Drinks/Week Comments No 0 (1 standard drink = 0.6 oz pur e alcohol) Comments No Sex and Gender Information Value Date Recorded Sex Assigned at Not on file Legal Sex Female 12:39 PM OUTBOARD MOTOR TESTER Gender Identity Not on file Sexual [...] Influenza, adult 09/04/2019 09/04/2019 09/11/2019 3:05 AM OUTBOARD MOTOR TESTER Abscess/Wound/Cellulitis 10/16/2019 10/16/2019 3:05 AM CDT documented as of this encounter Care Teams Professor Of Biostatistics Relationship Specialty Start Date End Date David Coppola MD PCP - General Family Medicine 10/29/17 Jacob Suarez MD Referring Physician Nephrology 12/20/18 Marnie Lara RN Registered Nurse Ediphone Operator 12/20/1809/03 Ros Seay MD Anatomy Teacher Cardiology 03/05/19 Johana Edmond, RN [address] [facility] [address] [place] [address] Ediphone Operator 08/21/19 Abdifatah Villa MD [address] [place] [address] Consulting Physician Cardiology 09/01/20 Issa Clements MD [address] [facility] [address] [place] [address] Referring Physician General Surgery 09/01/20 documented as of this encounter
--- OUTSIDE RECORDS SUMMARY | 2025-04-27 19:28 | XMS_ITS | Clinical Summary ---
Author Organization [facility] Address [address] [facility] [place] [address] Care Team Providers Care Asset Availability Leader Name Role Phone David Coppola MD Primary Care Provider [phone]- [phone] David Coppola MD Unavailable [phone] David Coppola MD Unavailable [phone] Virginie Corea RN Unavailable [phone] Source Comments [facility],non-owned Affiliates and Associated Physician Practices is amultiple site organization consisting of ambulatory clinics and hospital sitesin [place], [place], [place] and [place]. This disclosure is being madepursuant to the Care Everywhere program and may not contain all information available regarding this patient. Last updated 18.[facility] Allergies Active Allergy Reactions Criticality Noted [...] vitamin D, ergocalciferol , (DRISDOL) 1.25 MG (19979 UT) capsule Take 1 (one) capsule by [...] included. Listing date: Not yet listed Referring Economic Research Assistant: Dr. Suarez Dialysis Type and Start Date: [...] lives with her Estela. She speaks fluent [place] Island[place]. She has 3 children who live in [place] and [facility]. Her support system is her [...] (Bezet) ms 462 ms Final Calculated R Howard degrees 82 degrees Final Calculated T axis degrees 53 degrees Final EKG Interp Final ATRIAL FIBRILLATION NONSPECIFIC ST ABNORMALITY , PROBABLY DIGITALIS EFFECT ABNORMAL ECG NO PREVIOUS ECGS AVAILABLE Confirmed by Fritz GANT, MIKE ([id number]), social media editor Joseph Ingram ([id number]) on 04/04/2018 1:32:49 PM Echo: 03/28/18 CONCLUSION: There is moderate concentric left ventricular hypertrophy. The left ventricular ejection fraction is estimated at 65 %. There are no regional wall motion abnormalities present. Estimated right ventricular systolic pressure is 39 mmHg. Severe biatrial enlargement Mild dilated proximal ascending aorta. DSE: n/a will need [facility] Cardiac Cath: Will need d/t length of [...] Completed at OSH on 03/20/18 Cardiac Catheterization03/20/2018 [facility] Result Narrative PERIPHERAL ANGIOGRAM AND INTERVENTION [...] groin hematoma, retroperitoneal bleed, vessel perforation; periprocedural PA, stroke, contrast induced nephropathy, and even . [...] artery access site 8. Moderate Sedation (CPT 00579) MODERATE SEDATION: Midazolam 2 mg , Fentanyl 50 mcg, start time 1157 stop time 1318, total direct [id number] monitoring of conscious sedation 81 minutes (CPT 62472) TRAINED OBSERVER: Mena Scruggs RN was trained office over for moderate sedation. ACCESS SITE: Right common femoral artery PROCEDURE: After obtaining informed consent, patient was brought to the labeling associate and prepped and draped in the usual sterile manner. After local anesthesia with lidocaine, right common femoral artery access was taken with micropuncture needle followed by insertion of a 5 American sheath over a 0.035 inch wire. Selective right common femoral angiogram with distal runoff was performed through the 5 American sheath. After this, a 5 American IM catheter was advanced in the distal abdominal aorta, distal abdominal aortogram with bilateral iliac runoff was performed. The same catheter was pointed towards the left common iliac artery, selective left common iliac angiogram with distal runoff was performed. During intervention, selective left common femoral angiogram and superficial femoral angiogram was performed using the long 6 American sheath. The angiographic findings and details of [...] intervention on the same vessel. The 5 American sheath was exchanged with a long 90 cm sheath over 035 glide wire. The tip of the long sheath was position in the proximal popliteal artery. Patient received heparin for procedural anticoagulation, ACT was monitored throughout the procedure. Patient also received aspirin loading dose of clopidogrel 600 mg in the labeling associate. The totally occluded, calcified left anterior tibial [...] received dental clearance PPD: Colonoscopy: Completed at [facility] 12/02/2015 Mammo: Pap: Dental: SW: [...] No concerns regarding substance abuse identified. Plan: door worker to provide supportive services as needed. No f/u indicated at this time.Patient appears to be a reasonable candidate for transplant from a psychosocial perspective. Post transplant arrangement forms are needed prior to being listed. Psychiatric Consult Recommended: No Transplant Curtain Drier: Nicole Tomas LMSW RD: 03/28/18 BMI= 28.51, overweight - Pt is considered to be a good candidate for a Kidney Transplant from a Nutrition standpoint. Recommendations/Interventions: Pt instructed to continue to work with Renal RD at HD on diet and to be compliant. Lindsay Gardner Encounter for other preprocedural examination Overview (10/08/2017): Listing date: Not yet listed Referring Economic Research Assistant: Dr. Suarez Dialysis Type and Start Date: [...] lives with her Estela. She speaks fluent [place]. She has 3 chilren who live in [place] and [facility]. Her support system is her [...] Transplant surgery appt: Consults: cardiology consult with [facility] Notes: Not yet presented Evaluation Testing Date and Results: Labs: PTH: A1c: Glucose: PSA: GFR: Serologies: CMV Igg: EBV Igg: Albumin: Tox Screen: PRA: Echo: DSE: Cardiac Cath: CXR: Pano: US: PPD: Negative at on 05/08/2016 Colonoscopy: Completed at [facility] 12/02/2015 Mammo: Pap: Dental: SW: RD: Abnormal finding on imaging 06/15/2015 Overview (06/15/2015): Filling defect on venography of central veins. Need to rule out aortic arch aneurysm. Complication of arteriovenous dialysis fistula PVD (peripheral vascular disease) Encounters Date Type Department Care Team Description 02/03/2025 Orders Only [facility] - GI [address] [facility] [place] [address] Avis Dumont, SPICE GRINDER-DUMPMAN Hepatitis B core antibody positive from Last 3 Months Immunizations Immunization Administration Dates Next Due Covid Moderna primary monova lent 12+ yr 0.5mL 11/04/2021,10/15/2020,09/17/2020 Family History Medical History Relation Name Comments PA Brother 3 Heart Disease Father Hypertension Father PA Father Hypertension Mother Relation Name Status Comments [...] on file Legal Sex Female 5:40 PM SIDING MECHANIC Gender Identity Not on file Sexual [...] st Contact Info) Description 06/16/2025 1:00 PM SIDING MECHANIC Procedure visit [facility] - [address] [phone] 06/16/2025 1:30 PM SIDING MECHANIC Office Visit [facility] - [address] [phone] Avis Dumont M, SPICE GRINDER-[address] [place] [phone] Health Maintenance Due Date Last Done Comments [...] this topic Medical Devices Implanted Type Area Entrepreneurial Finance Professor Device Identifier Shelf Expiration Date Model / Serial / Lot Duraflow 2 Hemodialysis Catheter Implanted:Qty: 1 on 02/22/2015 by David Buitrago MD at [facility] Right: Chest 06/07/2017 [id number] / / [id number] Dane Acuseal Vascular Graft Implanted:Qty: 1 on 04/02/2018 by David Buitrago MD at [facility] Left: Arm 10/29/2020 [id number] / / [id number] Procedures Procedure Name Priority Date/Time Associated Diagnosis [...] glen Non-reac tive 03/28/2018 2:50 PM CDT [facility] Comment: Hepatitis C Antibody screen indicates no [...] LAB - CHEMISTRY ORDERABLES Fi nal Result [place] [address] [place] [address], [facility] [phone] from Last 3 Months or Most Recently Relevant to Health Maintenance Insurance MEDICAID - [place] UHC MANAGED MEDICARE ADV MEDICAID - OUT OF STATE Advance Directives Documents on File Type Date Recorded Patient Hog Cutter Expl anation Adv Directive/Living Will/POA 09/18/2017 * Full Code (Latest Code Status on File) Date Activated Date Inactivated Comments 02/22/2015 4:27 PM 02/23/2015 5:53 PM Care Teams Asset Availability Leader Relationship Specialty Start Date End Date David Coppola MD [address] [place] [phone] PCP - General 08/15/16 David Coppola MD [address] [place] [phone] Family Medicine 02/08/15 David Coppola MD [facility] [place] [address] Family Medicine 08/15/16 Virginie Corea, ABENA Boot Lace Cutter Machine 02/23/15
--- OUTSIDE RECORDS SUMMARY | 2025-04-27 19:28 | XMS_ITS | Encounter Summary ---
Author Organization [facility] Healthcare Address [address] [place] [address] Care Team Providers Care Patient Account Specialist Name Role Phone David Coppola MD Primary Care Provider + [phone] Jacob Suarez MD Unavailable [phone] Marnie Lara RN Unavailable [phone] Ros Seay MD Unavailable [phone] Johana Edmond RN Unavailable [phone] Abdifatah Villa MD Unavailable Issa Clements MD Unavailable [phone] Encounter Details Date Type Department Care Team (Late st Contact Info) Description 03/15/2018 Orders Only [facility] Health Information Management [address] [place] [address] Scanning, Provider Social History Tobacco Use Types Packs/Day Years Used Date Smoking Tobacco: Never Smokeless Tobacco: Never Alcohol Use Standard Drinks/Week Comments No 0 (1 standard drink = 0.6 oz pur e alcohol) Comments Unknown Sex and Gender Information Value Date Recorded Sex Assigned at Not on file Legal Sex Female 12:39 PM FLIGHT SURVEYOR Gender Identity Not on file Sexual Orientation [...] Influenza, adult 09/04/2019 09/04/2019 09/11/2019 3:05 AM FLIGHT SURVEYOR Abscess/Wound/Cellulitis 10/16/2019 10/16/2019 3:05 AM CDT documented as of this encounter Care Teams Patient Account Specialist Relationship Specialty Start Date End Date David Coppola MD PCP - General Family Medicine 10/29/17 Jacob Suarez MD Referring Physician Nephrology 12/20/18 Marnie Lara RN Registered Nurse Stem Roller Operator 12/20/1809/03 Ros Seay MD Health Unit Clerk Cardiology 03/05/19 Johana Edmond, RN [address] [facility] [address] [place] [address] Stem Roller Operator 08/21/19 Abdifatah Villa MD [address] [facility] [address] [place] [address] Consulting Physician Cardiology 09/01/20 Issa Clements MD [address] [facility] [address] [place] [address] Referring Physician General Surgery 09/01/20 documented as of this encounter
--- OUTSIDE RECORDS SUMMARY | 2025-04-27 19:28 | XMS_ITS | Clinical Summary ---
Author Organization [facility] Address [facility] [place] [address] Care Team Providers Care Director Counseling Bureau Name Role Phone David Coppola MD Primary Care Provider [phone] Social History Tobacco Use Types Packs/Day Years [...] 2025 05/05/2022, 11/04/2021, 05/27/2021, Additional history exists Influenza Adult (#1) 2025 03/24/2020, 03/22/2018, 04/08/2017, Additional history exists Pneumococcal Vaccine: 50+ Years Completed 11/11/2021, 05/08/2019, 04/09/2014 Hepatitis A Vaccines Aged Out No long er eligible based on patient's age to complete this topic Meningococcal B Vaccine Aged Out No l onger eligible based on patient's age to complete this topic Meningococcal Vaccine Aged Out No irene prince eligible based on patient's age to complete this topic RSV Immunizations Under 20 Months Aged Out No longer eligible based on patient's age to complete this topic Insurance [facility] MEDICARE MEDICAID Care Teams Director Counseling Bureau Relationship Specialty Start Date End Date David Coppola MD [facility] [place] [address] PCP - General FAMILY PRACTICE 06/13/22
--- OUTSIDE RECORDS SUMMARY | 2025-04-27 19:28 | XMS_ITS | Encounter Summary ---
Author Organization [facility] Address [address] [place] [address] Care Team Providers Care Marine Animal Trainer Name Role Phone David Coppola MD Primary Care Provider + [phone] David Coppola MD Unavailable [phone] David oCppola MD Unavailable [phone] Virginie Corea RN Unavailable [phone] Encounter Details Date Type Department Care Team (Late st Contact Info) Description 03/19/2023 Telephone [facility] . Wound Care [address] [facility] , [address] [phone] Lima Martins Social History Tobacco Use Types Packs/Day Years Used Date Smoking Tobacco: Never Smokeless Tobacco: Never Alcohol Use Standard Drinks/Week Comments No 0 (1 standard drink = 0.6 oz pur e alcohol) Comments No Sex and Gender Information Value Date Recorded Sex Assigned at Not on file Legal Sex Female 5:40 PM MANAGER PLANNING Gender Identity Not on file Sexual Orientation [...] st Contact Info) Description 06/16/2025 1:00 PM MANAGER PLANNING Procedure visit [facility] [address] [place] [phone] 06/16/2025 1:30 PM MANAGER PLANNING Office [facility] [place] [address] [place] [phone] Avis Dumont M, SMALL PARTS SHAPER OPERATOR-COKE DRAWER HAND [address] [place] [address] [place] [phone] documented as of this encounter Visit Diagnoses Not on filedocumented in this encounter Care Teams Marine Animal Trainer Relationship Specialty Start Date End Date David Coppola MD [address] [place] [phone] PCP - General 08/15/16 David Coppola MD [address] [place] [phone] Family Medicine 02/08/15 David Coppola MD [address] [place] [phone] Family Medicine 08/15/16 Virginie Corea, ABENA Shrub Grower 02/23/15 documented as of this encounter
--- OUTSIDE RECORDS SUMMARY | 2025-04-27 19:28 | XMS_ITS | Encounter Summary ---
Author Organization [facility] Address [address] [place] [address] Care Team Providers Care Infantry Weapons Crewmember Name Role Phone David Coppola MD Primary Care Provider [phone] Jacob Suarez MD Unavailable [phone] Ros Seay MD Unavailable [phone] Abdifatah Villa MD Unavailable Issa Clements MD Unavailable [phone] Encounter Details Date Type Department Care Team (Late st Contact Info) Description 11/19/2024 Telephone [facility] Radiology [address] [place], [place] [id number] Yaritza Golden RN Social History Tobacco Use [...] often do you attend chur ch or spiritism services? 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 Gender Identity Not on file Sexual Orientation Not on file documented as of this encounter Plan of Treatment Scheduled Procedures Name Priority Associated Diagnoses Date/Ti me TRANSPLANT KIDNEY ESRD (end stage renal disease) (HCC) documented as of this encounter Visit Diagnoses Not on filedocumented in this encounter Care Teams Infantry Weapons Crewmember Relationship Specialty Start Date End Date David Coppola MD PCP - General Family Medicine 10/29/17 Jacob Suarez MD Referring Physician Nephrology 12/20/18 Ros Seay MD [employer] Regenerator Operator Cardiology 03/05/19 Abdifatah Villa MD [address] [place] [address] Consulting Physician Cardiology 09/01/20 Issa Clements MD [address] [facility] [address] [place] [address] Referring Physician General Surgery 09/01/20 documented as of this encounter
--- NOTE | 2025-04-27 22:06 | ED.GIBLEED ---
HPI - GI Bleed General Chief complaint: GI Bleed Stated complaint: dark stool X4 days Time Seen by Provider: 04/27/25 21:40 History of Present Illness HPI Narrative: 80-year-old female with complex past medical history including atrial fibrillation on aspirin and Plavix, peripheral arterial disease, end-stage renal disease on hemodialysis, hypertension, diabetes, recurrent GI bleeding episodes with history of gastric ulcers. Patient presents to the emergency department today with 4 days of dark stool. Patient recent started taking aspirin Plavix several weeks ago (03/18) after having a procedure on her peripheral vascular disease in her legs. She was recently admitted to the hospital here for GI bleeding and required brief ICU stay secondary to bradycardia deemed not a candidate for pacemaker. Patient is also not a candidate for anticoagulation for AFib secondary to recurrent GI bleeding episodes per Cardiology evaluation here. Patient had a endoscopy on March 30 for symptomatic GI bleeding requiring transfusion and EGD was negative to depth of insertion. She was improved after her hospitalization and required 2 units of packed cells transfusion. Discharge home with follow-up and home health care. Patient states that she has been compliant with her medications but for the last 4 days has been having recurrence of lower abdominal pain and dark stool. She states she has no pain at baseline but when she goes to the bathroom she gets abdominal discomfort and that has dark stool. No fever, chills. Denies any chest pain, shortness a breath, epigastric pain. No other changes to her medications other than her aspirin Plavix starting recently. No other blood thinners. No diarrhea or constipation. Related Data Home Medications ?Medication ?Instructions ?Recorded ?Confirmed ?Last Taken ?Type acetaminophen 500 mg tablet See Rx Instructions PO Q4H PRN Pain 02/20/20 04/28/25 06/05/23 History (Acetaminophen Extra Strength) atorvastatin 40 mg tablet 40 mg PO QPM 10/25/21 04/28/25 12/03/24 History vitamin B complex and vitamin C 1 cap PO DAILY 10/25/21 04/28/25 12/03/24 History no.20-folic acid 1 mg capsule (Renal Caps) liraglutide 0.6 mg/0.1 mL (18 mg/3 1.2 mg subcut HS 06/06/23 04/28/25 12/03/24 History mL) subcutaneous pen injector ([employer] 2-Agustín) clotrimazole 1 % topical cream 1 applic topical Q12H 09/27/23 04/28/25 12/03/24 History (Antifungal (clotrimazole)) biotin 5 mg capsule 5 mg PO QPM 10/08/24 04/28/25 12/03/24 History diclofenac sodium 1 % topical gel 2 g topical QID PRN discomfort 02/12/25 04/28/25 Unknown History (Arthritis Pain (diclofenac)) sitagliptin phosphate 100 mg 100 mg PO BID 03/28/25 04/28/25 Unknown History tablet (Januvia) insulin degludec 100 unit/mL (3 5 unit subcut HS 04/28/25 04/28/25 Unknown History mL) subcutaneous pen (Tresiba FlexTouch U-100 insulin) Allergies Allergy/AdvReac Type Severity Reaction Status Date / Time cephalexin Allergy Mild Rash Verified 04/28/25 02:03 enalapril Allergy Unknown cough Verified 04/28/25 02:03 pioglitazone Allergy Unknown Unknown,Sne Verified 04/28/25 02:03 ezing cefazolin AdvReac Mild nausea/dizz Verified 04/28/25 02:03 iness tramadol AdvReac Unknown hallucinati Verified 04/28/25 02:03 ons gabapentin AdvReac Hallucinati Verified 04/28/25 02:03 ng Review of Systems Review of Systems: As reviewed above in [facility] Past Medical History Medical History Colitis 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 Spinal stenosis at L4-L5 level High-grade central canal stenosis noted on MRI February 2017 Pulmonary hypertension Echocardiogram August 2019: EF 65-70 %, indeterminate left ventricular diastolic function, mild biatrial enlargement, mild mitral valve regurgitation, moderate tricuspid regurgitation, mild pulmonary hypertension with RVSP of 39 Hiatal hernia Thoracic ascending aortic aneurysm 4.[address] scan from August 2019 Anemia of chronic disease Megaloblastic anemia Paroxysmal atrial fibrillation Type 2 diabetes mellitus Hemoglobin A1c was 6.6 in July 2019. Hypertension Osteoporosis Hyperlipidemia AV fistula Left upper extremity End stage renal disease on dialysis Dialysis days are Sunday, Sunday, and Sunday. She is on the transplant list at [facility]. Osteoarthritis of both knees Staphylococcal septicemia (~2013) Closed fracture of lateral portion of right tibial plateau (~2014) Surgical History Surgical History Amputated toe of left foot History of bilateral cataract extraction Amputation at midfoot 5th digit right footAnd the great toe on the left History of arthroplasty of right ankle Presence of Watchman left atrial appendage closure device History of arthroscopy (~12/07/12) wrist History of colonoscopy (~12/02/15) History of knee replacement (~2015) right Family History Family History Father Hypertension Heart disease Mother Diabetes mellitus Hypertension Tobacco dependence Lung cancer Sibling Heart disease Social History Social History Social History: The patient is and lives in [place]. She is originally from [place]. 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 She has 2 daughters who live in [place]. She has 1 son who lives in [facility] . She designates her daughters as her surrogate decision makers. She is a lifelong nonsmoker. No alcohol or drug abuse. Primary care physician: Dr. 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 HEAD: [Normocephalic, atraumatic.] EYES: [PERRLA and EOMI.] ENT: Nares clear, no rhinorrhea or epistaxis. Mucous membranes moist. NECK: Supple. CHEST: [Clear to auscultation. No respiratory distress.] HEART: [Regular rate and rhythm]. No murmur heard. [Normal peripheral pulses.] ABDOMEN: [Soft, nondistended], [nontender], [No rigidity or guarding] EXTREMITIES: Normal range of motion. [No edema.] Right upper extremity AV fistula palpable thrill. No overlying skin discoloration or changes. SKIN: Warm, dry, no rash. NEURO: [No focal deficits]. Alert and oriented [x3.] PSYCH: [Normal mood and affect.] Course Vital Signs Vital signs: Vital Signs Temperature 36.7 C 04/27/25 18:54 Pulse Rate 90 04/27/25 18:54 Respiratory Rate 20 04/27/25 18:54 Blood Pressure 112/31 L 04/27/25 18:54 Pulse Oximetry 96 04/27/25 18:54 Oxygen Delivery Room Air 04/27/25 18:54 Temperature 36.7 C 04/28/25 02:35 Pulse Rate 77 04/28/25 02:35 Respiratory Rate 18 04/28/25 02:35 Blood Pressure 152/52 H 04/28/25 02:35 Pulse Oximetry 99 04/28/25 02:35 Oxygen Delivery Room Air 04/27/25 23:05 MDM - GI Bleed MDM Narrative Medical decision making narrative: 80-year-old female with complex past medical history including atrial fibrillation on aspirin and Plavix, peripheral arterial disease, end-stage renal disease on hemodialysis, hypertension, diabetes, recurrent GI bleeding episodes with history of gastric ulcers. Patient presents to the emergency department today with 4 days of dark stool. Patient recent started taking aspirin Plavix several weeks ago (03/18) after having a procedure on her peripheral vascular disease in her legs. She was recently admitted to the hospital here for GI bleeding and required brief ICU stay secondary to bradycardia deemed not a candidate for pacemaker. Patient is also not a candidate for anticoagulation for AFib secondary to recurrent GI bleeding episodes per Cardiology evaluation here. Patient had a endoscopy on March 30 for symptomatic GI bleeding requiring transfusion and EGD was negative to depth of insertion. She was improved after her hospitalization and required 2 units of packed cells transfusion. Discharge home with follow-up and home health care. Patient states that she has been compliant with her medications but for the last 4 days has been having recurrence of lower abdominal pain and dark stool. She states she has no pain at baseline but when she goes to the bathroom she gets abdominal discomfort and that has dark stool. No fever, chills. Denies any chest pain, shortness a breath, epigastric pain. No other changes to her medications other than her aspirin Plavix starting recently. No other blood thinners. No diarrhea or constipation. Patient is hemodynamically stable. No tachycardia, fever, hypoxemia. Soft diastolic blood pressures. Not any acute physical distress but is chronically ill-appearing. Soft nontender nondistended abdomen. No active bleeding at this time. Complex past medical history raising suspicion for occult GI bleed, anemia, less likely infectious pathology but she did recently have colitis thought to be inflammatory versus infectious. Patient denies any abdominal pain or chest pain/shortness of breath/epigastric pain at this time. States she only really gets pain when she has to go the bathroom. Concern for GI bleeding raised and CT scan with contrast obtained as well as remaining workup with CBC, CMP, type and screen, lactic acid, PT, PTT. Patient placed on barrel drainer and pulse oximetry at this time. Patient's CBC shows acute on chronic anemia and she was given 2 units of packed red blood cell transfusion. Electrolytes otherwise largely unremarkable. CT scan shows no active GI bleeding or other serious acute abdominal process. Spoke to the hospitalist who recommended touching base with Gastroenterology for management instructions. Spoke to Dr. Zhu from GI who thinks patient has bleeding could be a angiodysplasia of the distal small bowel which is hard to visualize on traditional endoscopy and believe she would probably get something like a capsule endoscopy or other potential imaging but at this juncture recommended holding aspirin and Plavix and did not feel the need to initiate PPI therapy given her recent upper endoscopy was clean. Will help manage on inpatient basis. I relayed this information to the hospitalist Dr. Zepeda who accepted the patient to a telemetry monitored bed at this time. Patient re-evaluated frequently and did not have any further bowel movements here in the emergency department and otherwise remains comfortable with normal vital signs. Blood transfusions going at this time. Medical Records Attestation: I reviewed the patient's medical records. Lab Data Attestation: I reviewed the patient's lab results. 04/27/25 22:17 04/27/25 22:17 Labs: Lab Results 04/27/25 Range/Units 22:17 WBC 6.1 (4.5-10.0) K/mm3 RBC 2.09 L (4.2-5.4) M/mm3 Hgb 6.3 L* (12.0-15.0) g/dL Hct 20.5 L* (37.0-47.0) % MCV 98.1 (80-100) fl MCH 30.1 (26-34) pg MCHC 30.7 L (32-36) g/dl RDW 18.0 H (11.5-14.5) % Plt Count 167 (150-375) k/mm3 MPV 11.5 H (7.4-10.4) fl Immature Gran % (Auto) 0.3 (0-0.5) % Neut % (Auto) 68.3 (45.5-73.1) % Lymph % (Auto) 20.5 (18.3-44.2) % Childress % (Auto) 10.4 H (2.6-8.5) % Eos % (Auto) 0.3 (0-4.4) % Baso % (Auto) 0.2 (0.2-1.2) % Lymph # (Auto) 1.24 (0.9-3.2) K/mm3 Childress # (Auto) 0.6 (0.1-0.6) K/mm3 Eos # (Auto) 0.0 (0-0.3) K/mm3 Baso # (Auto) 0.0 (0.0-0.1) K/mm3 Abs Immat Gran (auto) 0.02 (0.00-0.031) K/mm3 Absolute Neuts (auto) 4.1 (1.3-6.7) K/mm3 Absolute Nucleated RBC 0.000 (0.0-0.012) K/mm3 Nucleated RBC % 0.0 (0.0-0.2) % PT 13.7 (11.1-14.7) Seconds INR 1.1 APTT 28.2 (22.3-36.8) Seconds Sodium 130 L (137-145) mmol/L Potassium 4.2 (3.4-5.0) mmol/L Chloride 89 L (98-107) mmol/L Carbon Dioxide 32 H (22-30) mmol/L Anion Gap 9 (4-12) mmol/L BUN 59 H D (7-17) mg/dL Creatinine 2.55 H (0.7-1.0) mg/dL Estim Creat Clear Calc 12 ml/min Estimated GFR 18 L (59 - ) Glucose 380 H (65-110) mg/dL Lactic Acid 1.5 (0.7-2.0) mmol/L Calcium 9.1 (8.4-10.2) mg/dL Total Bilirubin 0.4 (0.2-1.3) mg/dL AST 26 (14-36) U/L ALT 23 (6-35) U/L Alkaline Phosphatase 182 H (38-126) U/L Total Protein 5.2 L (6.3-8.2) g/dL Albumin 3.3 L (3.5-5.1) g/dL Blood Type O Positive Antibody Screen Negative Crossmatch See Detail Imaging Data Attestation: I personally reviewed and interpreted this imaging study as follows: My impression: No active GI bleeding Critical Care Time Critical Care Time Critical Care Time: Yes Total Critical Care Time: 35 Discharge Plan Discharge Clinical Impression: Anemia requiring transfusions, End stage renal disease on dialysis GI (gastrointestinal bleed) Qualifiers: GI bleed type/associated pathology: unspecified gastrointestinal hemorrhage type Qualified Code(s): K92.2 - Gastrointestinal hemorrhage, unspecified Atrial fibrillation Qualifiers: Atrial fibrillation type: unspecified Qualified Code(s): I48.91 - Unspecified atrial fibrillation Patient Disposition: Still a Patient Condition: Stable
[2025-04-27 22:23] LABS: Red Blood Count 2.09 M/mm3 (4.2-5.4); White Blood Count 6.1 K/mm3 (4.5-10.0)
[2025-04-27 22:24] LABS: Immature Granulocyte Percent A 0.3 % (0-0.5); Lymphocytes Absolute Auto 1.24 K/mm3 (0.9-3.2); Mean Corpuscular HGB Conc 30.7 g/dl (32-36); Mean Corpuscular Hemoglobin 30.1 pg (26-34); Mean Corpuscular Volume 98.1 fl (80-100); Nucleated Red Blood Cells Absolute Auto 0.000 K/mm3 (0.0-0.012); Nucleated Red Blood Cells Perc 0.0 % (0.0-0.2); Platelet Count Result 167 k/mm3 (150-375)
[2025-04-27 22:25] LABS: Hemoglobin 6.3 g/dL (12.0-15.0)
[2025-04-27 22:26] LABS: Hematocrit 20.5 % (37.0-47.0)
[2025-04-27 22:41] LABS: INR 1.1; Prothrombin Time 13.7 Seconds (11.1-14.7)
[2025-04-27 22:42] LABS: Partial Thromboplastin Time 28.2 Seconds (22.3-36.8)
[2025-04-27 22:46] LABS: Alanine Aminotransferase 23 U/L (6-35); Albumin Level 3.3 g/dL (3.5-5.1); Alkaline Phosphatase 182 U/L (38-126); Anion Gap 9 mmol/L (4-12); Aspartate Amino Transferase 26 U/L (14-36); Bilirubin,Total 0.4 mg/dL (0.2-1.3); Blood Urea Nitrogen 59 mg/dL (7-17); Calcium 9.1 mg/dL (8.4-10.2); Carbon Dioxide 32 mmol/L (22-30); Chloride 89 mmol/L (98-107); Estimated CRCL calculation 12 ml/min; Estimated Glomerular Filt Rate 18; Glucose 380 mg/dL (65-110); Potassium 4.2 mmol/L (3.4-5.0); Sodium 130 mmol/L (137-145); Total Protein 5.2 g/dL (6.3-8.2)
--- NOTE | 2025-04-27 23:06 | PC.NURSE ---
This RN received report from Leah KRAFT at this time.
[2025-04-27] MEDS: TUBING, BLOOD PLUM PUMP TUBING 1 EACH XX (23:36)
[2025-04-27] MEDS: SODIUM CHLORIDE 0.9% IV 250 ML 30 ML IV CONT (23:36)
[2025-04-27] MEDS: ACETAMINOPHEN 500 MG TABLET 1000 MG PO (23:54)
[2025-04-28] VITALS (17 sets, daily range): BP systolic 118–152; BP diastolic 45–75; PULSE 58–95; RESP 16–27; TEMP 36.7–37.1; O2SAT 93–99; BMI 25.0
--- NOTE | 2025-04-28 01:08 | PC.NURSE ---
VORB 100 mg trazodone PO once.
--- NOTE | 2025-04-28 01:49 | ADMGEN ---
This patient, Shasta Obando, was admitted to 2 Medical Room 255-01. Patient/family oriented to hospital policies and general routines including ID bracelet, bed and alarms, visiting hours, pain management, procedures, bathroom and other care routines, personal items, smoking policy, room service/diet, and visiting hours. Information on how to activate the Rapid Response Team has been discussed. Patient/Family are encouraged to report perceived risks to care and to ask questions if they do not understand what they are told or what they should do.
--- NOTE | 2025-04-28 02:54 | WNDPHOTO ---
PHOTO ONLY - See Nursing Notes and/ or assessments for documentation.
--- NOTE | 2025-04-28 02:57 | WNDPHOTO ---
PHOTO ONLY - See Nursing Notes and/ or assessments for documentation.
[2025-04-28 04:05] LABS: MRSA (PCR) NOT DETECTED (NOT DETECTE)
[2025-04-28 06:23] LABS: Hematocrit 27.2 % (37.0-47.0); Hemoglobin 8.7 g/dL (12.0-15.0); Mean Corpuscular HGB Conc 32.0 g/dl (32-36); Mean Corpuscular Hemoglobin 30.0 pg (26-34); Mean Corpuscular Volume 93.8 fl (80-100); Platelet Count Result 146 k/mm3 (150-375); Red Blood Count 2.90 M/mm3 (4.2-5.4); White Blood Count 5.4 K/mm3 (4.5-10.0)
--- NOTE | 2025-04-28 06:45 | PM.IMHP ---
H&P: HPI History of Present Illness Date/Time: 04/28/25 06:45 Chief Complaint: GI bleed, Abdominal pain Narrative: This is a 80-year-old female with very complex past medical history of atrial fibrillation on aspirin and Plavix, peripheral arterial disease, end-stage renal disease on hemodialysis MWF, hypertension, Watchmen, Pulmonary Hypertension, type II diabetes, recurrent GI bleeding episodes with history of gastric ulcers. Patient presented to the emergency department with a 4 day history of dark stool. Patient recent started taking aspirin Plavix several weeks ago (03/18) after having a procedure on her peripheral vascular disease in her legs. She was recently admitted to the hospital here for GI bleeding and required brief ICU stay secondary to bradycardia deemed not a candidate for pacemaker. Patient is also not a candidate for anticoagulation for AFib secondary to recurrent GI bleeding episodes per Cardiology. Patient had a endoscopy on March 30 for symptomatic GI bleeding requiring transfusion and EGD was negative to depth of insertion. Patient was discharged home with follow-up and home health care. Patient stated that she had been compliant with her medications but for the last 4 days has been having recurrence of lower abdominal pain and dark stool. She states she has no pain at baseline but when she goes to the bathroom she gets abdominal discomfort and that has dark stool. patient denied fever, chills, chest pain, shortness a breath, epigastric pain. No other changes to her medications other than her aspirin Plavix starting recently. No other blood thinners. No diarrhea or constipation. Vitals on arrival to ER noted 36.7, heart rate 90, resp 20, 112/31, with oxygen sat 96% on room air. Further ER work up noted patient was hemodynamically stable. No tachycardia, fever, hypoxemia. Soft diastolic blood pressures. Not any acute physical distress but is chronically ill-appearing. Soft nontender nondistended abdomen. No active bleeding at this time. Complex past medical history raising suspicion for occult GI bleed, anemia, less likely infectious pathology but she did recently have colitis thought to be inflammatory versus infectious. Patient denies any abdominal pain or chest pain/shortness of breath/epigastric pain at this time. States she only really gets pain when she has to go the bathroom. CBC show acute on chronic anemia with hgb 6.3, hct 20.5 and she was given 2 units of packed red blood cell transfusion. Electrolytes otherwise largely unremarkable. BUN 59, creat 2.55, GFR 18. CT scan shows no active GI bleeding or other serious acute abdominal process. ER provider did reach out to Dr. Zhu from GI who believed patient bleeding could be a angiodysplasia of the distal small bowel which is hard to visualize on traditional endoscopy and believe she would probably get something like a capsule endoscopy or other potential imaging but at this juncture recommended holding aspirin and Plavix and did not feel the need to initiate PPI therapy given her recent upper endoscopy was clean. patient was admitted for further management on telemetry. This am patient reports just mild abdominal discomfort. Patient does state she did not have dialysis yesterday. Her schedule is M//. Patient denies any chest pain, shortness of breath, dizziness, headache, or distress. Vital signs this am noted blood pressure 118/45, heart rate 75, resp 16, temp 98.0, O2 sat 95%. patient labs noted hgb of 8.7 and hct of 27.2 this am. Patient denies any current distress. 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 Spinal stenosis at L4-L5 level High-grade central canal stenosis noted on MRI February 2017 Pulmonary hypertension Echocardiogram August 2019: EF 65-70 %, indeterminate left ventricular diastolic function, mild biatrial enlargement, mild mitral valve regurgitation, moderate tricuspid regurgitation, mild pulmonary hypertension with RVSP of 39 Hiatal hernia Thoracic ascending aortic aneurysm 4.[address] scan from August 2019 Anemia of chronic disease Megaloblastic anemia Paroxysmal atrial fibrillation Type 2 diabetes mellitus Hemoglobin A1c was 6.6 in July 2019. Hypertension Osteoporosis Hyperlipidemia AV fistula Left upper extremity End stage renal disease on dialysis Dialysis days are Sunday, Sunday, and Sunday. She is on the transplant list at [facility]. Osteoarthritis of both knees Staphylococcal septicemia (~2013) Closed fracture of lateral portion of right tibial plateau (~2014) Surgical History Surgical History Amputated toe of left foot History of bilateral cataract extraction Amputation at midfoot 5th digit right footAnd the great toe on the left History of arthroplasty of right ankle Presence of Watchman left atrial appendage closure device History of arthroscopy (~12/07/12) wrist History of colonoscopy (~12/02/15) History of knee replacement (~2015) right Family History Family History Father Hypertension Heart disease Mother Diabetes mellitus Hypertension Tobacco dependence Lung cancer Sibling Heart disease Social History Social History Social History: The patient is and lives in [place]. She is originally from [place]. 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 She has 2 daughters who live in [place]. She has 1 son who lives in [facility] . She designates her daughters as her surrogate decision makers. She is a lifelong nonsmoker. No alcohol or drug abuse. Primary care physician: Dr. David Coppola Code status: Full code Smoking status: Never smoker Second hand tobacco smoke exposure: No Alcohol intake: never Substance use: never Substance use type: does not use Do You Feel Safe in your Home?: Yes Lack of Transportation: No Lack of Food: Never True Current Housing: I Have Housing Concerned About Future Housing: No Difficulty Paying Gas/Electric Bills: No Difficulty Paying for Meds: No Currently Unemployed: No Education: High School Diploma/GED Difficulty w/ Childcare or Family Care: No Gender identity (if verbalized by the patient): Female Spiritual care concerns: Yes (RESTORATION) Agree to blood products: Yes Meds Home Medications and Allergies Home Medications ?Medication ?Instructions ?Recorded ?Confirmed ?Type acetaminophen 500 mg tablet See Rx Instructions PO Q4H PRN Pain 02/20/20 04/28/25 History (Acetaminophen Extra Strength) blood sugar diagnostic #500 ea 07/18/21 04/28/25 Rx atorvastatin 40 mg tablet 40 mg PO QPM 10/25/21 04/28/25 History vitamin B complex and vitamin C 1 cap PO DAILY 10/25/21 04/28/25 History no.20-folic acid 1 mg capsule (Renal Caps) hortencia strickland #1 ea 01/11/23 04/28/25 Rx liraglutide 0.6 mg/0.1 mL (18 mg/3 1.2 mg subcut HS 06/06/23 04/28/25 History mL) subcutaneous pen injector (ERLinktoza 2-Agustín) Assited gait device #1 ea 08/23/23 04/28/25 Rx clotrimazole 1 % topical cream 1 applic topical Q12H 09/27/23 04/28/25 History (Antifungal (clotrimazole)) biotin 5 mg capsule 5 mg PO QPM 10/08/24 04/28/25 History blood sugar diagnostic #500 ea 10/14/24 04/28/25 Rx tenofovir alafenamide 25 mg tablet 25 mg PO DAILY #90 tabs 10/16/24 04/28/25 Rx trazodone 50 mg tablet 100 mg (2 x 50 mg) PO QHS #180 tabs 12/31/24 04/28/25 Rx rollator #1 ea 01/01/25 04/28/25 Rx denosumab 60 mg/mL subcutaneous 60 mg subcut [id number] #1 mL 01/05/25 04/28/25 Rx syringe (Prolia) pantoprazole 40 mg tablet,delayed 40 mg PO Q12HR #60 tabs 01/20/25 04/28/25 Rx release pen needle, diabetic 32 gauge x #100 ea 01/20/25 04/28/25 Rx /32 diclofenac sodium 1 % topical gel 2 g topical QID PRN discomfort 02/12/25 04/28/25 History (Arthritis Pain (diclofenac)) polyethylene glycol 3350 17 17 g PO DAILY PRN constipation 7 02/14/25 04/28/25 Rx gram/dose oral powder (Miralax) days #119 grams quetiapine 25 mg tablet (Seroquel) 25 mg PO HS 7 days #7 tabs 02/15/25 04/28/25 Rx sitagliptin phosphate 100 mg 100 mg PO BID 03/28/25 04/28/25 History tablet (Januvia) aspirin 81 mg chewable tablet 81 mg PO DAILY@0800 #30 tabs 04/01/25 04/28/25 Rx (Children's Aspirin) clopidogrel 75 mg tablet 75 mg PO QAM #30 tabs 04/01/25 04/28/25 Rx insulin degludec 100 unit/mL (3 5 unit subcut HS 04/28/25 04/28/25 History mL) subcutaneous pen (Tresiba FlexTouch U-100 insulin) Allergies Allergy/AdvReac Type Severity Reaction Status Date / Time cephalexin Allergy Mild Rash Verified 04/28/25 02:03 enalapril Allergy Unknown cough Verified 04/28/25 02:03 pioglitazone Allergy Unknown Unknown,Sne Verified 04/28/25 02:03 ezing cefazolin AdvReac Mild nausea/dizz Verified 04/28/25 02:03 iness tramadol AdvReac Unknown hallucinati Verified 04/28/25 02:03 ons gabapentin AdvReac Hallucinati Verified 04/28/25 02:03 ng Vital Signs Vital Signs - 24 hr 04/27/25 18:54 04/27/25 23:02 04/27/25 23:05 Temperature 98.0 F Pulse Rate 90 70 73 Respiratory Rate 20 26 H 26 H Blood Pressure 112/31 L 127/52 L 127/52 L Pulse Oximetry 96 97 97 Oxygen Delivery Room Air Room Air 04/27/25 23:28 04/27/25 23:30 04/27/25 23:33 Temperature 97.6 F Pulse Rate 73 76 68 Respiratory Rate 22 H 19 22 H Blood Pressure 133/60 136/55 L 136/55 L Pulse Oximetry 93 94 91 Oxygen Delivery 04/27/25 23:45 04/28/25 00:31 04/28/25 00:45 Temperature 97.7 F 98.1 F Pulse Rate 74 83 76 Respiratory Rate 19 26 H 21 H Blood Pressure 124/57 L 127/58 L 141/75 H Pulse Oximetry 95 95 95 Oxygen Delivery 04/28/25 00:45 04/28/25 01:01 04/28/25 01:16 Temperature Pulse Rate 82 79 73 Respiratory Rate 21 H 27 H 25 H Blood Pressure 141/75 H 132/50 L 125/45 L Pulse Oximetry 93 95 96 Oxygen Delivery 04/28/25 01:31 04/28/25 01:59 04/28/25 01:59 Temperature 98.2 F 98.1 F 98.1 F Pulse Rate 73 77 77 Respiratory Rate 25 H 18 18 Blood Pressure 125/45 L 152/52 H 152/52 H Pulse Oximetry 96 99 99 Oxygen Delivery 04/28/25 02:35 04/28/25 02:50 04/28/25 04:00 Temperature 98.1 F 98.1 F Pulse Rate 77 66 Respiratory Rate 18 24 H Blood Pressure 152/52 H 131/57 L Pulse Oximetry 99 96 Oxygen Delivery Room Air 04/28/25 04:30 04/28/25 05:05 Temperature 98.2 F 98.0 F Pulse Rate 64 75 Respiratory Rate 16 16 Blood Pressure 120/45 L 118/45 L Pulse Oximetry 97 95 Oxygen Delivery Exam Const: General: cooperative, comfortable, no acute distress, alert and awake Nutritional Appearance: thin Orientation/consciousness: patient oriented x3 Limitations: no limitations HENMT: Head: normal to inspection, normocephalic and atraumatic Ears: hearing grossly normal bilaterally Face/Nose/Sinus: Normal external nose present Face and sinus: normal facial exam Eyes: General: appearance normal, both eyes and all related structures Visual Anand: normal visual anand by confrontation Neck: Neck: normal visual inspection, no lymphadenopathy, trachea midline and supple Chest: Chest palpation & inspection: normal inspection of the chest Resp: Effort & Inspection: normal respiratory effort Auscultation: clear to auscultation bilaterally Cardio: Jugular venous distension: no JVD Rate: regular rate Rhythm: abnormal rhythm (a fib) Heart sounds: S1 normal heart sound present and S2 normal heart sound present Peripheral pulses: Peripheral pulses 2+ throughout Other: left arteriovascular access shunt in upper extremity GI: Inspection: normal to inspection GI Palp: Yes abdominal tenderness (mild in the lower bilateral quadrants) Auscultation: normal bowel sounds Skin: General skin exam: normal color and no rashes or lesions noted Neuro: General: patient oriented x3 and moves all extremities Extrem: General: full ROM and capillary refill normal Psych: Appearance: grossly normal Mental Status: mental status grossly normal H&P: Results Labs Labs: Short CBC 04/27/25 04/28/25 Range/Units 22:17 06:04 WBC 6.1 5.4 (4.5-10.0) K/mm3 Hgb 6.3 L* 8.7 L (12.0-15.0) g/dL Hct 20.5 L* 27.2 L (37.0-47.0) % Plt Count 167 146 L (150-375) k/mm3 BMP 04/27/25 22:17 Sodium 130 L Potassium 4.2 Chloride 89 L Carbon Dioxide 32 H BUN 59 H D Creatinine 2.55 H Glucose 380 H Calcium 9.1 Liver Function 04/27/25 Range/Units 22:17 Total Bilirubin 0.4 (0.2-1.3) mg/dL AST 26 (14-36) U/L ALT 23 (6-35) U/L Alkaline Phosphatase 182 H (38-126) U/L Albumin 3.3 L (3.5-5.1) g/dL Imaging CT scan - abdomen: Radiologist's impression: [place] [id number] [place] [address] CT Scan Report Signed Patient: Shasta Anton : 1945 MR#: [id number] Age: 80 Acct:[id number] Loc: [id number] ADM Date: 04/28/[address]: Yusra Vega M.D. Ordering Physician: Kenny Palacios MD Date of Service: 04/27/25 Procedure(s): CT abdomen pelvis w con Accession Number(s): [id number] cc: Yusra Vega MD; David Coppola MD; Kenny Palacios MD~ EXAMINATION: CT abdomen pelvis w con DATE: 04/27/2025 23:13 INDICATION: GI bleed TECHNIQUE: Computed tomography (CT) of the abdomen and pelvis was performed with 100 cc Omnipaque 350 intravenous contrast. The dose-length product was 193.88 mGy-cm. Automated exposure control and iterative reconstruction technique were employed. COMPARISON: CT dated 03/28/2025. FINDINGS: Cardiomegaly. Trace pleural effusions. Dependent atelectasis. Fatty infiltration of the liver. There is cirrhosis. The spleen, pancreas, adrenal glands are unremarkable. Gallbladder is present. There is stenosis at the origin of celiac axis and to a lesser degree the SMA. There is severe bilateral renal atrophy with small bilateral cysts. Nonobstructing right nephrolithiasis. Nonobstructive bowel gas pattern. There is an atrophic uterus. There are healed bilateral inferior pubic rami fractures. There is diffuse demineralization of the spine. Mild diffuse subcutaneous edema. There is mild thickening of the gastric wall which may be due to gastritis or underdistention. IMPRESSION: 1. Mild thickening of the gastric wall which may be due to underdistention or gastritis. Neoplasm less favored. 2: Cirrhosis. 3: Small pleural effusions. 4: Cardiomegaly. 5: Severe renal atrophy. Assessment and Plan Assessment and plan (1) GI (gastrointestinal bleed): Code(s): K92.2 - Gastrointestinal hemorrhage, unspecified Status: Acute Assessment and Plan: -->GI consulted -->Etiology of anemia likely multifactorial with chronic blood loss and ESRD requiring skilled nursing dialysis -->aspirin and Plavix currently on hold --monitor H/H and transfuse as needed to keep Hgb >7 --> GI Recommend outpatient capsule endoscopy, which our office will arrange. If patient found to have small bowel source of bleeding we will need to determine at that time if the patient would be a safe candidate for push enteroscopy given her multiple health issues that would make the patient high risk for complications (2) Anemia requiring transfusions: Code(s): D64.9 - Anemia, unspecified Status: Acute Assessment and Plan: --> chronic due to chronic disease --> Active GI bleed needing transfusion. --GI consulted --monitoring H&H (3) Hemodialysis patient: Code(s): Z99.2 - Dependence on renal dialysis Status: Acute (4) ESRD (end stage renal disease) on dialysis: Code(s): N18.6 - End stage renal disease; Z99.2 - Dependence on renal dialysis Status: Chronic Assessment and Plan: Nephrology consulted Hemodialysis Sunday (5) Type 2 diabetes mellitus: Qualifiers: Diabetes mellitus skilled nursing insulin use: without terminologist use Diabetes mellitus complication status: without complication Qualified Code(s): E11.9 - Type 2 diabetes mellitus without complications Code(s): E11.9 - Type 2 diabetes mellitus without complications Status: Chronic Assessment and Plan: --> Holding patient's home insulin as we do not carry it --Accu-Cheks a.c. HS --Diabetic diet when taking PO -->SSI - when taking PO hold for now -->Hypoglycemia protocol (6) Hypertension: Qualifiers: Hypertension type: unspecified Qualified Code(s): I10 - Essential (primary) hypertension Code(s): I10 - Essential (primary) hypertension Status: Chronic Assessment and Plan: -- Patient does not appear to be on medications likely managed through dialysis (7) Hyperlipidemia: Code(s): E78.5 - Hyperlipidemia, unspecified Status: Chronic Assessment and Plan: --> conitnue statin once taking PO (8) Atrial fibrillation: Qualifiers: Atrial fibrillation type: unspecified Qualified Code(s): I48.91 - Unspecified atrial fibrillation Code(s): I48.91 - Unspecified atrial fibrillation Status: Chronic Assessment and Plan: --> Rate controlled --> monitor with telemetry --> will consider cardiology if needed. Plan Code status - full code PPI- protonix DVT - scds Disposition - will monitor H&H, will awaitin GI suggestion, once stable patient will be discharged home for further management. Nephrology consulted. Quality VTE Prophylaxis VTE prophylaxis: mechanical ordered Hospitalist MIPS Advance Care Plan I have confirmed that the patient's Advanced Care Plan is present, code status is documented, or surrogate decision maker is listed in patient medical record.: Yes Medication Reconciliation I have utilized all available resources to obtain, update and review the patients current medications (includes all prescriptions, OTC, herbals, cannabis, and nutritional supplements).: Yes The patient is not eligible for med reconciliation; the patient is in a emergent medical situation where delaying treatment would jeopardize the patients health.: Yes
[2025-04-28 06:49] LABS: Anion Gap 9 mmol/L (4-12); Blood Urea Nitrogen 67 mg/dL (7-17); Calcium 8.6 mg/dL (8.4-10.2); Carbon Dioxide 31 mmol/L (22-30); Chloride 90 mmol/L (98-107); Estimated Glomerular Filt Rate 15; Glucose 251 mg/dL (65-110); Magnesium 2.1 mg/dL (1.6-2.3); Potassium 4.4 mmol/L (3.4-5.0); Sodium 130 mmol/L (137-145)
[2025-04-28] MEDS: INSULIN ASPART (*BKC) 100 UNITS/ML SUB-Q ×2 (06:59→18:11)
--- NOTE | 2025-04-28 08:06 | WPDGICN ---
Assessment and Plan Assessment and plan (1) Chronic anemia: Code(s): D64.9 - Anemia, unspecified Status: Acute (2) ESRD (end stage renal disease) on dialysis: Code(s): N18.6 - End stage renal disease; Z99.2 - Dependence on renal dialysis Status: Chronic (3) Melena: Code(s): K92.1 - Melena Status: Acute (4) Cirrhosis: Qualifiers: Hepatic cirrhosis type: other cirrhosis Qualified Code(s): K74.69 - Other cirrhosis of liver Code(s): K74.60 - Unspecified cirrhosis of liver Status: Acute Plan 1. Anemia of chronic disease/melena/ESRD on dialysis/cirrhosis: Patient with anemia since 2019 with baseline Hgb 8-9. She has received 14 blood transfusion since 2019. Patient has an EGD 03/30/2025 which was normal and EGD 12/04/2024 which showed a small hiatal hernia and mild chronic gastritis. No endoscopic findings to explain anemia. She was recently started on aspirin 81 mg and Plavix daily during her last hospitalization in Mar for A-Fib. Last H/H prior to discharge was 8.6/27.9 and on ER presentation yesterday Hgb 6.3. Patient received 2 units PRBC's and H/H now 8.7/27.2. Patient states that she had been having dark stools for 4 days prior to coming into the ER. Source of GI bleeding likely in the small bowel given normal EGD's. 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 If patient found to have small bowel source of bleeding we will need to determine at that time if the patient would be a safe candidate for push enteroscopy given her multiple health issues that would make the patient high risk for complications diet advanced ok to discharge as patient has outpatient dialysis tomorrow, if patient is not discharged today she will need to be set up for dialysis here Thank you very much for allowing me to share in the care of this very nice patient. This report may have been done utilizing a voice recognition system. Attempts have been made to correct errors. However, there may be uncorrected grammatical, spelling, and recognition errors present. GI Consult Note Consult date/time: 04/28/25 08:06 HPI: This is a 80-year-old female with history of end-stage renal disease on hemodialysis Sunday and on transplant list at [facility], HLD, HTN, AFib, Hep B, Watchman, pulmonary hypertension, history of colon polyps, diabetes, and anemia of chronic disease. Patient presented to the ER yesterday with complaints of dark stools x 4 days. GI has been consulted for anemia and suspected UGIB. Patient with anemia of chronic disease dating back to 2018 and has required blood transfusion x14 since 2019. She was recently started on aspirin 81 mg and Plavix during recent hospitalization last month for A-Fib. Prior to admission the patient was having black stools with diarrhea x 4 days, which has improved since aspirin and Plavix held. She denies any other GI complaints. Prior to 4 days ago she was having regular formed BM's every 1-2 days. Patients main complaints at this time is that she would like to eat. ENDOSCOPY HISTORY: EGD: 03/30/[address] Robles for anemia, melena and ESRD Findings: Normal EGD EGD: 12/04/[address] Zhu for melena Findings: The esophagus was examined and the mucosa was normal with a normal Z-Line and no ulcers or masses A small hiatal hernia without obstruction was found at the GE junction Mild localized chronic superficial gastritis was seem in the antrum The gastritis had erythematous and nonerosive changes The bulb and second portion of the duodenum was normal with no ulcer ir masses EGD: 04/05/[address] Abreu for epigastric pain, chronic anemia and heme positive stools Findings: There was a single small sessile polyp observed at the GE junction. There was no bleeding. The appearance seemed benign in nature. Hot snare polypectomy was performed and the polyp was completely excised and retrieved Bx results: GE JUNCTION POLYP; BIOPSY: -BENIGN SQUAMO- COLUMNAR ARE MUCOSA WITH CHRONIC INFLAMMATION -FRAGMENTS OF BENIGN PROXIMAL GASTRIC MUCOSA WITH CHRONIC INFLAMMATION. -NEGATIVE FOR DYSPLASIA OR MALIGNANCY . -NO EOSINOPHILIC OR NEUTROPHILIC INFILTRATES IDENTIFIED COLONOSCOPY: 04/06/[address] Abreu for melena Findings: There was a single 7 mm sessile polyp observed in the descending colon. The appearance seemed adenomatous in nature. Hot snare polypectomy was performed and the polyp was completely excised and retrieved Bx results: Descending colon polyp, polypectomy: - Tubular adenoma LABS AND STOOL STUDIES: Labs 04/28/2025: WBC 5, Hgb 9, Hct 27, MCV 94, platelets 146 Sodium 130, potassium 4.4, BUN 67, creatinine 2.99, GFR 15, calcium 8.6 Labs 04/27/2025: WBC 6, Hgb 6.3, Hct 21, MCV 98, platelets 167, INR 1.1 Sodium 130, potassium 4.2, BUN 59, creatinine 2.55, GFR 18, calcium 9.1, lactic acid 1.5 Total bilirubin 0.4, AST 26, ALT 23, Alkaline Phos 182, albumin 3.3 Labs 11/05/2024: WBC 6, HGB 8.4, HCT 28, MCV 100, platelets 130, INR 1.0 Sodium 133, potassium 3.5, BUN 30, creatinine 2.55, GFR 18, calcium 9.0, magnesium 1.9 Iron 44, TIBC 151, iron saturation 29% Total bilirubin 0.8, AST 38, ALT 30, alkaline phosphatase 205, albumin 4.0, lipase 255. LABS 08/13/2024: Hepatitis B DNA PCR 84 Hepatitis B DNA Quant 1.92 Hepatitis-Be antibody reactive Hepatitis-Be antigen nonreactive IMAGING: CT abd/pelvis w/contrast 04/28/2025: IMPRESSION: 1. Mild thickening of the gastric wall which may be due to underdistention or gastritis. Neoplasm less favored. 2: Cirrhosis. 3: Small pleural effusions. 4: Cardiomegaly. 5: Severe renal atrophy. CT abd/pelvis w/contrast 03/28/2025: IMPRESSION: 1. Colitis. Likely infectious or inflammatory but given severe atherosclerotic disease, ischemic remains possible. Recommend correlation with lactate. CT chest/abd/pelvis w/contrast 02/12/2025: Impression: Small pleural effusions with mild bibasilar atelectatic change. Tiny gallstone. Renal osteodystrophy with atrophic kidneys and multiple renal cysts. Fecal impaction and stercoral proctitis. CT abd/pelvis w/contrast 11/05/2024: IMPRESSION: 1. Proximal colitis which could be infectious, inflammatory or less likely ischemic in etiology. 2. Wall thickening at the gastric antrum which could be seen with gastritis or peptic ulcer disease. 3. Severe bilateral renal atrophy with likely secondary renal osteodystrophy. 4. Moderate cardiomegaly. 5. Trace left pleural effusion. Review of Systems Constitutional: Constitutional: Reports as per HPI ENT: Reports as per HPI Cardiovascular: Cardiovascular: Reports as per HPI, Denies chest pain and Denies dyspnea Respiratory: Respiratory: Denies cough and Denies dyspnea Gastrointestinal: Gastrointestinal: Reports as per HPI Musculoskeletal: Musculoskeletal: Reports as per HPI Integumentary/Breasts: Skin/Breast: Reports as per HPI Psychiatric: Psychiatric: Reports as per HPI Endocrine: Endocrine: Reports no additional endocrine complaints Hematologic/Lymphatic: Hematologic/Lymphatic: Reports no additional hematologic/lymphatic complaints [facility] Past Medical History Medical History Colitis 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 Spinal stenosis at L4-L5 level High-grade central canal stenosis noted on MRI February 2017 Pulmonary hypertension Echocardiogram August 2019: EF 65-70 %, indeterminate left ventricular diastolic function, mild biatrial enlargement, mild mitral valve regurgitation, moderate tricuspid regurgitation, mild pulmonary hypertension with RVSP of 39 Hiatal hernia Thoracic ascending aortic aneurysm 4.[address] scan from August 2019 Anemia of chronic disease Megaloblastic anemia Paroxysmal atrial fibrillation Type 2 diabetes mellitus Hemoglobin A1c was 6.6 in July 2019. Hypertension Osteoporosis Hyperlipidemia AV fistula Left upper extremity End stage renal disease on dialysis Dialysis days are Sunday, Sunday, and Sunday. She is on the transplant list at [facility]. Osteoarthritis of both knees Staphylococcal septicemia (~2013) Closed fracture of lateral portion of right tibial plateau (~2014) Surgical History Surgical History Amputated toe of left foot History of bilateral cataract extraction Amputation at midfoot 5th digit right footAnd the great toe on the left History of arthroplasty of right ankle Presence of Watchman left atrial appendage closure device History of arthroscopy (~12/07/12) wrist History of colonoscopy (~12/02/15) History of knee replacement (~2015) right Family History Family History Father Hypertension Heart disease Mother Diabetes mellitus Hypertension Tobacco dependence Lung cancer Sibling Heart disease Social History Social History Social History: The patient is and lives in [place]. She is originally from [place]. 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 She has 2 daughters who live in [place]. She has 1 son who lives in [facility] . She designates her daughters as her surrogate decision makers. She is a lifelong nonsmoker. No alcohol or drug abuse. Primary care physician: Dr. David Coppola Code status: Full code Smoking status: Never smoker Second hand tobacco smoke exposure: No Alcohol intake: never Substance use: never Substance use type: does not use Do You Feel Safe in your Home?: Yes Lack of Transportation: No Lack of Food: Never True Current Housing: I Have Housing Concerned About Future Housing: No Difficulty Paying Gas/Electric Bills: No Difficulty Paying for Meds: No Currently Unemployed: No Education: High School Diploma/GED Difficulty w/ Childcare or Family Care: No Gender identity (if verbalized by the patient): Female Spiritual care concerns: Yes (DENOMINATIONAL) Agree to blood products: Yes Meds Home Medications and Allergies Home Medications ?Medication ?Instructions ?Recorded ?Confirmed ?Type acetaminophen 500 mg tablet See Rx Instructions PO Q4H PRN Pain 02/20/20 04/28/25 History (Acetaminophen Extra Strength) blood sugar diagnostic #500 ea 07/18/21 04/28/25 Rx atorvastatin 40 mg tablet 40 mg PO QPM 10/25/21 04/28/25 History vitamin B complex and vitamin C 1 cap PO DAILY 10/25/21 04/28/25 History no.20-folic acid 1 mg capsule (Renal Caps) hortencia strickland #1 ea 01/11/23 04/28/25 Rx liraglutide 0.6 mg/0.1 mL (18 mg/3 1.2 mg subcut HS 06/06/23 04/28/25 History mL) subcutaneous pen injector (Belanittoza 2-Agustín) Assited gait device #1 ea 08/23/23 04/28/25 Rx clotrimazole 1 % topical cream 1 applic topical Q12H 09/27/23 04/28/25 History (Antifungal (clotrimazole)) biotin 5 mg capsule 5 mg PO QPM 10/08/24 04/28/25 History blood sugar diagnostic #500 ea 10/14/24 04/28/25 Rx tenofovir alafenamide 25 mg tablet 25 mg PO DAILY #90 tabs 10/16/24 04/28/25 Rx trazodone 50 mg tablet 100 mg (2 x 50 mg) PO QHS #180 tabs 12/31/24 04/28/25 Rx rollator #1 ea 01/01/25 04/28/25 Rx denosumab 60 mg/mL subcutaneous 60 mg subcut [id number] #1 mL 01/05/25 04/28/25 Rx syringe (Prolia) pantoprazole 40 mg tablet,delayed 40 mg PO Q12HR #60 tabs 01/20/25 04/28/25 Rx release pen needle, diabetic 32 gauge x #100 ea 01/20/25 04/28/25 Rx /32 diclofenac sodium 1 % topical gel 2 g topical QID PRN discomfort 02/12/25 04/28/25 History (Arthritis Pain (diclofenac)) polyethylene glycol 3350 17 17 g PO DAILY PRN constipation 7 02/14/25 04/28/25 Rx gram/dose oral powder (Miralax) days #119 grams quetiapine 25 mg tablet (Seroquel) 25 mg PO HS 7 days #7 tabs 02/15/25 04/28/25 Rx sitagliptin phosphate 100 mg 100 mg PO BID 03/28/25 04/28/25 History tablet (Januvia) aspirin 81 mg chewable tablet 81 mg PO DAILY@0800 #30 tabs 04/01/25 04/28/25 Rx (Children's Aspirin) clopidogrel 75 mg tablet 75 mg PO QAM #30 tabs 04/01/25 04/28/25 Rx insulin degludec 100 unit/mL (3 5 unit subcut HS 04/28/25 04/28/25 History mL) subcutaneous pen (Tresiba FlexTouch U-100 insulin) Allergies Allergy/AdvReac Type Severity Reaction Status Date / Time cephalexin Allergy Mild Rash Verified 04/28/25 02:03 enalapril Allergy Unknown cough Verified 04/28/25 02:03 pioglitazone Allergy Unknown Unknown,Sne Verified 04/28/25 02:03 ezing cefazolin AdvReac Mild nausea/dizz Verified 04/28/25 02:03 iness tramadol AdvReac Unknown hallucinati Verified 04/28/25 02:03 ons gabapentin AdvReac Hallucinati Verified 04/28/25 02:03 ng Vital Signs Vital Signs - 24 hr 04/27/25 18:54 04/27/25 23:02 04/27/25 23:05 Temperature 98.0 F Pulse Rate 90 70 73 Respiratory Rate 20 26 H 26 H Blood Pressure 112/31 L 127/52 L 127/52 L Pulse Oximetry 96 97 97 Oxygen Delivery Room Air Room Air 04/27/25 23:28 04/27/25 23:30 04/27/25 23:33 Temperature 97.6 F Pulse Rate 73 76 68 Respiratory Rate 22 H 19 22 H Blood Pressure 133/60 136/55 L 136/55 L Pulse Oximetry 93 94 91 Oxygen Delivery 04/27/25 23:45 04/28/25 00:31 04/28/25 00:45 Temperature 97.7 F 98.1 F Pulse Rate 74 83 76 Respiratory Rate 19 26 H 21 H Blood Pressure 124/57 L 127/58 L 141/75 H Pulse Oximetry 95 95 95 Oxygen Delivery 04/28/25 00:45 04/28/25 01:01 04/28/25 01:16 Temperature Pulse Rate 82 79 73 Respiratory Rate 21 H 27 H 25 H Blood Pressure 141/75 H 132/50 L 125/45 L Pulse Oximetry 93 95 96 Oxygen Delivery 04/28/25 01:31 04/28/25 01:59 04/28/25 01:59 Temperature 98.2 F 98.1 F 98.1 F Pulse Rate 73 77 77 Respiratory Rate 25 H 18 18 Blood Pressure 125/45 L 152/52 H 152/52 H Pulse Oximetry 96 99 99 Oxygen Delivery 04/28/25 02:35 04/28/25 02:50 04/28/25 04:00 Temperature 98.1 F 98.1 F Pulse Rate 77 66 Respiratory Rate 18 24 H Blood Pressure 152/52 H 131/57 L Pulse Oximetry 99 96 Oxygen Delivery Room Air 04/28/25 04:00 04/28/25 04:30 04/28/25 05:05 Temperature 98.2 F 98.0 F Pulse Rate 58 L 64 75 Respiratory Rate 16 16 Blood Pressure 120/45 L 118/45 L Pulse Oximetry 97 95 Oxygen Delivery Exam Const: General: cooperative, comfortable, no acute distress and well developed Orientation/consciousness: oriented to person, oriented to place, oriented to time and patient oriented x3 HENMT: Head: normal to inspection, normocephalic and atraumatic Mouth: Yes Normal oral and palatal mucosa present and Yes moist mucous membranes Eyes: General: appearance normal, both eyes and all related structures Conjunctivae: conjunctivae normal Sclera: sclerae normal Pupils: Equal, round and reactive pupils present Neck: Neck: normal visual inspection Chest: Chest palpation & inspection: normal inspection of the chest Resp: Effort & Inspection: normal respiratory effort and able to speak in complete sentences Auscultation: clear to auscultation bilaterally Cardio: Jugular venous distension: no JVD Rate: regular rate Rhythm: regular rhythm Heart sounds: S1 normal heart sound present and S2 normal heart sound present GI: Inspection: normal to inspection GI Palp: Yes Soft to palpation and Yes No hepatosplenomegaly present Auscultation: normal bowel sounds Rectal Exam: deferred Skin: General skin exam: normal color and no rashes or lesions noted Neuro: General: oriented to person, oriented to place, oriented to time and patient oriented x3 Cranial nerves: Yes Equal, round and reactive pupils present Speech: normal speech Extrem: General: normal to inspection and no clubbing, cyanosis or edema Psych: Appearance: grossly normal and well kempt Affect: normal affect Results Labs 04/28/25 06:04 04/28/25 06:04 Labs: Short CBC 04/27/25 04/28/25 Range/Units 22:17 06:04 WBC 6.1 5.4 (4.5-10.0) K/mm3 Hgb 6.3 L* 8.7 L (12.0-15.0) g/dL Hct 20.5 L* 27.2 L (37.0-47.0) % Plt Count 167 146 L (150-375) k/mm3 BMP 04/27/25 04/28/25 22:17 06:04 Sodium 130 L 130 L Potassium 4.2 4.4 Chloride 89 L 90 L Carbon Dioxide 32 H 31 H BUN 59 H D 67 H Creatinine 2.55 H 2.99 H Glucose 380 H 251 H Calcium 9.1 8.6 Liver Function 04/27/25 Range/Units 22:17 Total Bilirubin 0.4 (0.2-1.3) mg/dL AST 26 (14-36) U/L ALT 23 (6-35) U/L Alkaline Phosphatase 182 H (38-126) U/L Albumin 3.3 L (3.5-5.1) g/dL
[2025-04-28] MEDS: PANTOPRAZOLE 40 MG TABLET PO ×2 (08:09→20:52)
[2025-04-28] MEDS: VITAMIN B CMPLX/VIT C/FOLIC AC 1 CAPSULE 1 CAP PO (08:12)
[2025-04-28] MEDS: ACETAMINOPHEN 325 MG TABLET PO ×2 (08:16→18:22)
--- NOTE | 2025-04-28 09:52 | PM.CNNEP ---
Assessment and Plan Assessment and plan (1) End stage renal disease: Code(s): N18.6 - End stage renal disease Status: Chronic Assessment and Plan: plan HD tomorrow continue M/W/F dialysis schedule while hospitalized follow electrolytes, volume status, and clearance (2) Anemia: Qualifiers: Anemia type: unspecified type Qualified Code(s): D64.9 - Anemia, unspecified Code(s): D64.9 - Anemia, unspecified Status: Chronic Assessment and Plan: acute on chronic likely related to ESRD, chronic blood loss, liver disease, and medications (plavix + ASA) s/p PRBC transfusion GI recommendations noted no planned inpatient interventions Epogen with HD follow trend of H/H (3) Paroxysmal atrial fibrillation: Code(s): I48.0 - Paroxysmal atrial fibrillation Status: Acute Assessment and Plan: rate controlled no anticoagulation due to history of gastric ulcer/GI bleed and is s/p left atrial appendage occlusion device (4) Peripheral arterial disease: Code(s): I73.9 - Peripheral vascular disease, unspecified Status: Acute Assessment and Plan: known history s/p intervention at [facility] recently (March 2025) was on plavix and ASA currently on hold (5) Hypertension: Qualifiers: Hypertension type: unspecified Qualified Code(s): I10 - Essential (primary) hypertension Code(s): I10 - Essential (primary) hypertension Status: Chronic Assessment and Plan: known history however, appears controlled without the need for medications follow trend of hemodynamics (6) Type 2 diabetes mellitus: Qualifiers: Diabetes mellitus intermodal dispatcher insulin use: without intermodal dispatcher use Diabetes mellitus complication status: without complication Qualified Code(s): E11.9 - Type 2 diabetes mellitus without complications Code(s): E11.9 - Type 2 diabetes mellitus without complications Status: Chronic Assessment and Plan: follow accuchecks glycemic control per hospitalist I will continue to follow the patient with you while she remains hospitalized and make further recommendations as needed. Thank you for allowing me to participate in the care of this patient. History of Present Illness Reason for Consult Consult date: 04/28/25 Reason for consult: end stage renal disease Chief Complaint Chief complaint: Anemia requiring transfusion suspect GI bleeding History of Present Illness Narrative: The patient is a 80-year-old female with a past medical history as outlined below who presented to [facility] Emergency room from home via EMS with complaints dark stools and generalized weakness. She reports the above symptoms dark stools and fatigue started about 4 - 5 days ago. Associated symptoms include lower abdominal pain but denies any fever, chills, chest pain, shortness a breath, diarrhea, nausea, or vomiting. She does mention that she recently started taking aspirin Plavix several weeks ago (03/18) after having a procedure for her peripheral vascular disease in her legs. She was recently admitted here for suspected GI bleeding on 03/30 requiring PRBC transfusion -- howevcer, her EGD was negative and her H/H remains stable post transfusion. Given her history of GI bleeding in the past coupled with symptoms as mentioned, she presented to the ER for further assessment. Work-up and evaluation in the ER demonstrated the patient was hemodynamically stable and afebrile. Routine testing demonstrated acute on chronic anemia with hemoglobin of 6.3, hematocrit of 20.5, unremarkable electrolytes, BUN 59, and a creatinine of 2.55. CT scan of the abdomen/pelvis showed no active GI bleeding or other serious acute abdominal pathology. GI was consulted from the ER with recommendations to hold holding aspirin and Plavix and did not feel the need to initiate PPI therapy given her recent upper endoscopy was negative. She was typed and crossed and initiated on a PRBC transfusion with subsequent admission to the hospital for further evaluation and therapy. Renal consultation was requested due to her end-stage renal disease. The patient normally dialyzes on a Sunday, Sunday, Sunday schedule under the care of Dr. Jacob Suarez at [facility]. From a dialysis perspective, she is compliant with her dialysis treatments and usually does not have any significant fluid gains in between her dialysis treatments. Her monthly labs are usually fairly stable as well. Her last dialysis treatment was yesterday, Sunday (04/27) ,and as far as I am aware, it was uneventful. She is due for dialysis tomorrow. Currently, at the time my visit, She has no acute complaints but appears to be somewhat tired/fatigued. Repeat labs this AM show improvement in her H/H following the PRBC transfusion. Review of Systems Review of Systems: As per HPI. 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 Spinal stenosis at L4-L5 level High-grade central canal stenosis noted on MRI February 2017 Pulmonary hypertension Echocardiogram August 2019: EF 65-70 %, indeterminate left ventricular diastolic function, mild biatrial enlargement, mild mitral valve regurgitation, moderate tricuspid regurgitation, mild pulmonary hypertension with RVSP of 39 Hiatal hernia Thoracic ascending aortic aneurysm 4.[address] scan from August 2019 Anemia of chronic disease Megaloblastic anemia Paroxysmal atrial fibrillation Type 2 diabetes mellitus Hemoglobin A1c was 6.6 in July 2019. Hypertension Osteoporosis Hyperlipidemia AV fistula Left upper extremity End stage renal disease on dialysis Dialysis days are Sunday, Sunday, and Sunday. She is on the transplant list at [facility]. Osteoarthritis of both knees Staphylococcal septicemia (~2013) Closed fracture of lateral portion of right tibial plateau (~2014) Surgical History Surgical History Amputated toe of left foot History of bilateral cataract extraction Amputation at midfoot 5th digit right footAnd the great toe on the left History of arthroplasty of right ankle Presence of Watchman left atrial appendage closure device History of arthroscopy (~12/07/12) wrist History of colonoscopy (~12/02/15) History of knee replacement (~2015) right Family History Family History Father Hypertension Heart disease Mother Diabetes mellitus Hypertension Tobacco dependence Lung cancer Sibling Heart disease Social History Social History Social History: The patient is and lives in [place]. She is originally from [place]. 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 She has 2 daughters who live in [place]. She has 1 son who lives in [facility] . She designates her daughters as her surrogate decision makers. She is a lifelong nonsmoker. No alcohol or drug abuse. Primary care physician: Dr. David Coppola Code status: Full code Smoking status: Never smoker Second hand tobacco smoke exposure: No Alcohol intake: never Substance use: never Substance use type: does not use Do You Feel Safe in your Home?: Yes Lack of Transportation: No Lack of Food: Never True Current Housing: I Have Housing Concerned About Future Housing: No Difficulty Paying Gas/Electric Bills: No Difficulty Paying for Meds: No Currently Unemployed: No Education: High School Diploma/GED Difficulty w/ Childcare or Family Care: No Gender identity (if verbalized by the patient): Female Spiritual care concerns: Yes (YAZIDI) Agree to blood products: Yes Meds Home Medications and Allergies Home Medications ?Medication ?Instructions ?Recorded ?Confirmed ?Type acetaminophen 500 mg tablet See Rx Instructions PO Q4H PRN Pain 02/20/20 05/05/25 History (Acetaminophen Extra Strength) blood sugar diagnostic #500 ea 07/18/21 05/05/25 Rx atorvastatin 40 mg tablet 40 mg PO QPM 10/25/21 05/05/25 History foldiing walker #1 ea 01/11/23 05/05/25 Rx liraglutide 0.6 mg/0.1 mL (18 mg/3 1.2 mg subcut HS 06/06/23 05/05/25 History mL) subcutaneous pen injector (Victoza 2-Agustín) Assited gait device #1 ea 08/23/23 05/05/25 Rx clotrimazole 1 % topical cream 1 applic topical Q12H 09/27/23 05/05/25 History (Antifungal (clotrimazole)) blood sugar diagnostic #500 ea 10/14/24 05/05/25 Rx tenofovir alafenamide 25 mg tablet 25 mg PO DAILY #90 tabs 10/16/24 05/05/25 Rx trazodone 50 mg tablet 100 mg (2 x 50 mg) PO QHS #180 tabs 12/31/24 05/05/25 Rx rollator #1 ea 01/01/25 05/05/25 Rx pantoprazole 40 mg tablet,delayed 40 mg PO Q12HR #60 tabs 01/20/25 05/05/25 Rx release pen needle, diabetic 32 gauge x #100 ea 01/20/25 05/05/25 Rx sitagliptin phosphate 100 mg 100 mg PO BID 03/28/25 05/05/25 History tablet (Januvia) insulin degludec 100 unit/mL (3 5 unit subcut HS 04/28/25 05/05/25 History mL) subcutaneous pen (Tresiba FlexTouch U-100 insulin) Allergies Allergy/AdvReac Type Severity Reaction Status Date / Time cephalexin Allergy Mild Rash Verified 05/04/25 15:13 enalapril Allergy Unknown cough Verified 05/04/25 15:13 pioglitazone Allergy Unknown Unknown,Sne Verified 05/04/25 15:13 ezing cefazolin AdvReac Mild nausea/dizz Verified 05/04/25 15:13 iness tramadol AdvReac Unknown hallucinati Verified 05/04/25 15:13 ons gabapentin AdvReac Hallucinati Verified 05/04/25 15:13 ng Vital Signs Vital Signs Temp Pulse Resp BP Pulse Ox O2 Del Method 04/28/25 08:00 75 04/28/25 08:00 Room Air 04/28/25 05:05 98.0 F 75 16 118/45 L 95 04/28/25 04:30 98.2 F 64 16 120/45 L 97 04/28/25 04:00 58 L 04/28/25 04:00 Room Air 04/28/25 02:50 98.1 F 66 24 H 131/57 L 96 04/28/25 02:35 98.1 F 77 18 152/52 H 99 04/28/25 01:59 98.1 F 77 18 152/52 H 99 04/28/25 01:59 98.1 F 77 18 152/52 H 99 04/28/25 01:31 98.2 F 73 25 H 125/45 L 96 04/28/25 01:16 73 25 H 125/45 L 96 04/28/25 01:01 79 27 H 132/50 L 95 04/28/25 00:45 82 21 H 141/75 H 93 04/28/25 00:45 98.1 F 76 21 H 141/75 H 95 04/28/25 00:31 83 26 H 127/58 L 95 04/27/25 23:45 97.7 F 74 19 124/57 L 95 04/27/25 23:33 97.6 F 68 22 H 136/55 L 91 04/27/25 23:30 76 19 136/55 L 94 04/27/25 23:28 73 22 H 133/60 93 04/27/25 23:05 73 26 H 127/52 L 97 Room Air 04/27/25 23:02 70 26 H 127/52 L 97 04/27/25 18:54 98.0 F 90 20 112/31 L 96 Room Air Exam Narrative: GENERAL APPEARANCE: frail and elderly female in no acute distress HEENT: normocephalic, atraumatic, normal conjunctiva and sclera, nares patient NECK: no lymphadenopathy, thyromegaly, or JVD MOUTH: normal lips, teeth, and gums CARDIOVASCULAR: IRRR, normal S1 and S2, no rub RESPIRATORY: decreased at the bases ABDOMEN: soft, mild TTP, nondistended, positive bowel sounds present EXTREMITIES: no evidence of cyanosis, clubbing, or edema NEUROLOGICAL: awake and alert; no focal deficits noted; + weakness Results Lab Results 04/29/25 17:33 04/29/25 04:58 Lab results: Most recent lab results Calcium 8.6 mg/dL (8.4-10.2) 04/28/25 06:04 Magnesium 2.1 mg/dL (1.6-2.3) 04/28/25 06:04
[2025-04-28 15:02] LABS: Hematocrit 29.1 % (37.0-47.0); Hemoglobin 9.2 g/dL (12.0-15.0)
--- NOTE | 2025-04-28 18:58 | PC.NURSE ---
On 04/28/25, the RN, Salina Rodgers, provided care and completed [facility] documentation on this patient. I have reviewed the RN's documentation and agree with the findings.
[2025-04-28] MEDS: ATORVASTATIN 40 MG TABLET PO (20:52)
[2025-04-28] MEDS: INSULIN GLARGINE (*BKC) 100 UNITS/ML SUB-Q (20:57)
[2025-04-29] VITALS (25 sets, daily range): BP systolic 97–167; BP diastolic 50–72; PULSE 64–89; RESP 18–24; TEMP 36.7–37.1; O2SAT 92–99
[2025-04-29] MEDS: INSULIN ASPART (*BKC) 100 UNITS/ML SUB-Q ×3 (00:42→12:17)
[2025-04-29 05:17] LABS: Hematocrit 25.6 % (37.0-47.0); Hemoglobin 8.0 g/dL (12.0-15.0); Immature Granulocyte Percent A 0.5 % (0-0.5); Lymphocytes Absolute Auto 1.35 K/mm3 (0.9-3.2); Mean Corpuscular HGB Conc 31.3 g/dl (32-36); Mean Corpuscular Hemoglobin 29.9 pg (26-34); Mean Corpuscular Volume 95.5 fl (80-100); Nucleated Red Blood Cells Absolute Auto 0.000 K/mm3 (0.0-0.012); Nucleated Red Blood Cells Perc 0.0 % (0.0-0.2); Platelet Count Result 134 k/mm3 (150-375); Red Blood Count 2.68 M/mm3 (4.2-5.4); White Blood Count 5.9 K/mm3 (4.5-10.0)
[2025-04-29 05:49] LABS: Alanine Aminotransferase 22 U/L (6-35); Albumin Level 3.0 g/dL (3.5-5.1); Alkaline Phosphatase 134 U/L (38-126); Anion Gap 12 mmol/L (4-12); Aspartate Amino Transferase 23 U/L (14-36); Bilirubin,Total 0.4 mg/dL (0.2-1.3); Blood Urea Nitrogen 88 mg/dL (7-17); Calcium 8.3 mg/dL (8.4-10.2); Carbon Dioxide 27 mmol/L (22-30); Chloride 91 mmol/L (98-107); Estimated Glomerular Filt Rate 10; Glucose 209 mg/dL (65-110); Potassium 4.8 mmol/L (3.4-5.0); Sodium 130 mmol/L (137-145); Total Protein 5.0 g/dL (6.3-8.2)
[2025-04-29 08:26] LABS: Hepatitis B Surface Antigen Negative (Negative)
[2025-04-29 08:43] LABS: Hepatitis B Surface Anti Res Negative
[2025-04-29] MEDS: VITAMIN B CMPLX/VIT C/FOLIC AC 1 CAPSULE 1 CAP PO (08:50)
[2025-04-29] MEDS: PANTOPRAZOLE 40 MG TABLET PO (08:50)
[2025-04-29] MEDS: LIDOCAINE/PRILOCAINE CREAM 2.5-2.5% TUBE 1 EACH TOPICAL (13:35)
--- NOTE | 2025-04-29 14:55 | P.PNNP_ITS ---
Progress Note: A&P Assessment and Plan (1) End stage renal disease: Code(s): N18.6 - End stage renal disease Status: Chronic Assessment and Plan: * HD today * continue M/W/F dialysis schedule while hospitalized * follow electrolytes, volume status, and clearance (2) Anemia: Qualifiers: Anemia type: unspecified type Qualified Code(s): D64.9 - Anemia, unspecified Code(s): D64.9 - Anemia, unspecified Status: Chronic Assessment and Plan: * acute on chronic * likely related to ESRD, chronic blood loss, liver disease, and medications (plavix + ASA) * s/p PRBC transfusion * GI recommendations noted * no planned inpatient interventions * Epogen with HD * follow trend of H/H (3) Paroxysmal atrial fibrillation: Code(s): I48.0 - Paroxysmal atrial fibrillation Status: Acute Assessment and Plan: * rate controlled * no anticoagulation due to history of gastric ulcer/GI bleed and is s/p left atrial appendage occlusion device (4) Peripheral arterial disease: Code(s): I73.9 - Peripheral vascular disease, unspecified Status: Acute Assessment and Plan: * known history * s/p intervention at [facility] recently (March 2025) * was on plavix and ASA * currently on hold (5) Hypertension: Qualifiers: Hypertension type: unspecified Qualified Code(s): I10 - Essential (primary) hypertension Code(s): I10 - Essential (primary) hypertension Status: Chronic Assessment and Plan: * known history * however, appears controlled without the need for medications * follow trend of hemodynamics (6) Type 2 diabetes mellitus: Qualifiers: Diabetes mellitus terminal gauger supervisor insulin use: without terminal gauger supervisor use Diabetes mellitus complication status: without complication Qualified Code(s): E11.9 - Type 2 diabetes mellitus without complications Code(s): E11.9 - Type 2 diabetes mellitus without complications Status: Chronic Assessment and Plan: * follow accuchecks * glycemic control per hospitalist Will continue to follow. Subjective Date/time seen: 04/29/25 14:55 Interval history: Follow-up for end stage renal disease on hemodialysis. Tolerating dialysis treatment at the time of my visit (seen on HD at 2:45pm); H/H relatively stable at this time; no apparent distress voiced when seen; no issues/events overnight or earlier this morning. Exam Narrative: General: frail and elderly female in NAD Heart: normal S1 and S2; no rub Lungs: clear anteriorly; decreased at bases Abdomen: soft, nontender, nondistended, positive bowel sounds Extremities: no cyanosis or clubbing; no edema Skin: warm and dry Objective Data Vital Signs Vital Signs: Vital Signs Temp Pulse Resp BP Pulse Ox O2 Del Method 04/29/25 14:50 77 157/72 H 04/29/25 14:45 79 97/56 L 04/29/25 14:30 89 156/60 H 04/29/25 14:20 76 153/64 H 04/29/25 13:49 98.2 F 79 20 149/66 H 98 04/29/25 12:00 80 04/29/25 08:00 Room Air 04/29/25 08:00 84 04/29/25 06:00 98.7 F 68 18 119/50 L 92 04/29/25 04:00 64 04/29/25 00:00 71 04/28/25 21:50 98.2 F 84 20 134/48 L 96 04/28/25 20:00 84 04/28/25 20:00 Room Air Intake/Output Intake/Output: Intake & Output 04/26/25 04/27/25 04/28/25 04/29/25 23:59 23:59 23:59 23:59 Intake Total 0 1370 900 Output Total 3000 Balance 0 1370 -2100 Meds/Results Medications: Active Medications Generic Name Dose Route Start Last Admin Trade Name Freq PRN Reason Stop Dose Admin Acetaminophen 325 mg 04/28/25 06:47 04/28/25 18:22 Acetaminophen 325 Mg Tablet PO 325 mg Q4H PRN Administration Pain Atorvastatin Calcium 40 mg 04/28/25 21:00 04/28/25 20:52 Atorvastatin 40 Mg Tablet PO 40 mg QHS THERESE Administration Dextrose 12.5 gm 04/28/25 02:26 Dextrose 50% 25 Gm/50 Ml Syringe IV PUSH PRN PRN Hypoglycemia Protocol Glucose 15 gm 04/28/25 02:26 Glucose Oral Gel 15 Gm Of Glucse In 37.5 Gm Tube PO PRN PRN Hypoglycemia Protocol Dextrose 1,000 mls @ 100 mls/hr 04/28/25 02:26 Dextrose 5% 1,000 Ml IVPB PRN PRN Hypoglycemia Protocol Albumin Human 50 mls @ 999 mls/hr 04/29/25 06:03 Albutein IVPB 05/29/25 06:02 Q10M PRN HYPOTENSION Insulin Aspart 2 - 5 units 04/28/25 06:00 04/29/25 18:45 Insulin Aspart (*Bkc) 100 Units/Ml SUB-Q Not Given Q6HR THERESE Protocol Insulin Glargine 5 units 04/28/25 21:00 04/28/25 20:57 Insulin Glargine (*Bkc) 100 Units/Ml SUB-Q 5 units HS THERESE Administration Lidocaine/Prilocaine 1 each 04/29/25 06:19 04/29/25 13:35 Lidocaine/Prilocaine Cream 2.5-2.5% Tube TOPICAL 1 each WITH DIALYSIS PRN Administration for dialysis Protocol Miscellaneous Information 1 each 04/28/25 00:01 Sitagliptin Phosphate 100 Mg Tablet - External Med History Indicates Patient Is Taking One XX 05/28/25 00:00 [facility] Miscellaneous Information 1 each 04/28/25 00:01 Tenofovir Alafenamide 25 Mg Tablet Is Nonform, Can Patient Bring From Home? XX 05/28/25 00:00 [facility] Non-Formulary Medication 25 mg 04/28/25 09:00 Tenofovir Alafenamide PO 05/28/25 08:59 DAILY THERESE Ondansetron HCl 4 mg 04/28/25 00:34 Ondansetron Inj 4 Mg/2 Ml Vial IV PUSH Q4H PRN Nausea Pantoprazole Sodium 40 mg 04/28/25 09:00 04/29/25 08:50 Pantoprazole 40 Mg Tablet PO 40 mg Q12HR THERESE Administration Polyethylene Glycol 17 gm 04/28/25 06:43 04/28/25 14:46 Polyethylene Glycol 3350 17 Gm Powd.Pack PO 17 gm DAILY PRN Administration Constipation Quetiapine Fumarate 25 mg 04/28/25 21:00 04/28/25 20:52 Quetiapine Fumarate 25 Mg Tablet PO 25 mg HS THERESE Administration Sitagliptin Phosphate 100 mg 04/28/25 09:00 Sitagliptin Phosphate 100 Mg Tablet PO BID THERESE Trazodone HCl 100 mg 04/28/25 21:00 04/28/25 20:52 Trazodone Hcl 50 Mg Tablet PO 100 mg QHS THERESE Administration Vitamin B Complex/Folic Acid 1 cap 04/28/25 09:00 04/29/25 08:50 Vitamin B Cmplx/Vit C/Folic Ac 1 Capsule PO 1 cap DAILY THERESE Administration Radiology Results: ITS Impressions Abdomen/Pelvis CT 04/28/25 08:03 IMPRESSION: 1. Mild thickening of the gastric wall which may be due to underdistention or gastritis. Neoplasm less favored. 2: Cirrhosis. 3: Small pleural effusions. 4: Cardiomegaly. 5: Severe renal atrophy. Labs Labs: Laboratory Tests 04/29/25 04:58 WBC 5.9 Hgb 8.0 L Hct 25.6 L Plt Count 134 L Sodium 130 L Potassium 4.8 Chloride 91 L Carbon Dioxide 27 Anion Gap 12 BUN 88 H D Creatinine 4.47 H Glucose 209 H Calcium 8.3 L Total Bilirubin 0.4 AST 23 ALT 22 Alkaline Phosphatase 134 H Total Protein 5.0 L Albumin 3.0 L
--- NOTE | 2025-04-29 15:27 | PM.IMPN ---
Progress Note: A&P Assessment and Plan (1) GI (gastrointestinal bleed): Code(s): K92.2 - Gastrointestinal hemorrhage, unspecified Status: Acute Assessment and Plan: -->GI consulted -->Etiology of anemia likely multifactorial with chronic blood loss and ESRD requiring intermediate dialysis -->aspirin and Plavix currently on hold --monitor H/H and transfuse as needed to keep Hgb >7 --> GI Recommend outpatient capsule endoscopy, which our office will arrange. If patient found to have small bowel source of bleeding we will need to determine at that time if the patient would be a safe candidate for push enteroscopy given her multiple health issues that would make the patient high risk for complications (2) Anemia requiring transfusions: Code(s): D64.9 - Anemia, unspecified Status: Acute Assessment and Plan: --> chronic due to chronic disease --> Active GI bleed needing transfusion. --GI consulted --monitoring H&H (3) Hemodialysis patient: Code(s): Z99.2 - Dependence on renal dialysis Status: Acute (4) ESRD (end stage renal disease) on dialysis: Code(s): N18.6 - End stage renal disease; Z99.2 - Dependence on renal dialysis Status: Chronic Assessment and Plan: Nephrology consulted Hemodialysis Sunday (5) Type 2 diabetes mellitus: Qualifiers: Diabetes mellitus intermediate insulin use: without intermediate use Diabetes mellitus complication status: without complication Qualified Code(s): E11.9 - Type 2 diabetes mellitus without complications Code(s): E11.9 - Type 2 diabetes mellitus without complications Status: Chronic Assessment and Plan: --> Holding patient's home insulin as we do not carry it --Accu-Cheks a.c. HS --Diabetic diet when taking PO -->SSI - when taking PO hold for now -->Hypoglycemia protocol (6) Hypertension: Qualifiers: Hypertension type: unspecified Qualified Code(s): I10 - Essential (primary) hypertension Code(s): I10 - Essential (primary) hypertension Status: Chronic Assessment and Plan: -- Patient does not appear to be on medications likely managed through dialysis (7) Hyperlipidemia: Code(s): E78.5 - Hyperlipidemia, unspecified Status: Chronic Assessment and Plan: --> conitnue statin once taking PO (8) Atrial fibrillation: Qualifiers: Atrial fibrillation type: unspecified Qualified Code(s): I48.91 - Unspecified atrial fibrillation Code(s): I48.91 - Unspecified atrial fibrillation Status: Chronic Assessment and Plan: --> Rate controlled --> monitor with telemetry --> will consider cardiology if needed. Plan Code status - full code PPI- protonix DVT - scds Disposition - will monitor H&H, will awaitin GI suggestion, once stable patient will be discharged home for further management. Nephrology consulted. Subjective Date/time seen: 04/29/25 15:27 Interval history: Patient examined in dialysis. States that she feels much better today, denies any chest pain, shortness a breath, nausea/vomiting or abdominal pain. Denies any blood in the stools. GI to schedule an outpatient capsule endoscopy but has no further recommendations for inpatient stay. States that she can be discharged home after transfusion. Review of Systems Review of Systems: All systems reviewed & are unremarkable except as noted in HPI and below Exam Const: General: cooperative, comfortable, no acute distress, alert, awake and thin Nutritional Appearance: thin Orientation/consciousness: patient oriented x3 Limitations: no limitations HENMT: Head: normal to inspection, normocephalic and atraumatic Ears: hearing grossly normal bilaterally Face/Nose/Sinus: Normal external nose present and normal facial exam Face and sinus: normal facial exam Eyes: General: appearance normal, both eyes and all related structures Visual Salazar: normal visual salazar by confrontation Neck: Neck: normal visual inspection, no lymphadenopathy, trachea midline and supple Chest: Chest palpation & inspection: normal inspection of the chest Resp: Effort & Inspection: normal respiratory effort Auscultation: clear to auscultation bilaterally Cardio: Jugular venous distension: no JVD Rate: regular rate Rhythm: abnormal rhythm (a fib) Heart sounds: S1 normal heart sound present and S2 normal heart sound present Peripheral pulses: Peripheral pulses 2+ throughout Other: left arteriovascular access shunt in upper extremity GI: Inspection: normal to inspection Auscultation: normal bowel sounds Skin: General skin exam: normal color and no rashes or lesions noted Neuro: General: patient oriented x3 and moves all extremities Extrem: General: full ROM and capillary refill normal Psych: Appearance: grossly normal Mental Status: mental status grossly normal Objective Data Vital Signs Vital Signs: Vital Signs - 24 hr 04/28/25 16:00 04/28/25 20:00 04/28/25 20:00 Temperature Pulse Rate 95 84 Respiratory Rate Blood Pressure Pulse Oximetry Oxygen Delivery Room Air 04/28/25 21:50 04/29/25 00:00 04/29/25 04:00 Temperature 98.2 F Pulse Rate 84 71 64 Respiratory Rate 20 Blood Pressure 134/48 L Pulse Oximetry 96 Oxygen Delivery 04/29/25 06:00 04/29/25 08:00 04/29/25 08:00 Temperature 98.7 F Pulse Rate 68 84 Respiratory Rate 18 Blood Pressure 119/50 L Pulse Oximetry 92 Oxygen Delivery Room Air 04/29/25 12:00 04/29/25 13:49 04/29/25 14:20 Temperature 98.2 F Pulse Rate 80 79 76 Respiratory Rate 20 Blood Pressure 149/66 H 153/64 H Pulse Oximetry 98 Oxygen Delivery 04/29/25 14:30 04/29/25 14:45 04/29/25 14:50 Temperature Pulse Rate 89 79 77 Respiratory Rate Blood Pressure 156/60 H 97/56 L 157/72 H Pulse Oximetry Oxygen Delivery 04/29/25 15:00 Temperature Pulse Rate 77 Respiratory Rate Blood Pressure 153/60 H Pulse Oximetry Oxygen Delivery Intake/Output Intake/Output: Intake & Output 04/26/25 04/27/25 04/28/25 04/29/25 23:59 23:59 23:59 23:59 Intake Total 0 1370 780 Balance 0 1370 780 Meds/Results Medications: Active Medications Generic Name Dose Route Start Last Admin Trade Name Freq PRN Reason Stop Dose Admin Acetaminophen 325 mg 04/28/25 06:47 04/28/25 18:22 Acetaminophen 325 Mg Tablet PO 325 mg Q4H PRN Administration Pain Atorvastatin Calcium 40 mg 04/28/25 21:00 04/28/25 20:52 Atorvastatin 40 Mg Tablet PO 40 mg QHS THERESE Administration Dextrose 12.5 gm 04/28/25 02:26 Dextrose 50% 25 Gm/50 Ml Syringe IV PUSH PRN PRN Hypoglycemia Protocol Epoetin Son-epbx 10,000 units 04/29/25 18:03 Epoetin Son-Epbx 10,000 Units/Ml Vial IV PUSH 04/29/25 18:04 ONCE ONE Glucose 15 gm 04/28/25 02:26 Glucose Oral Gel 15 Gm Of Glucse In 37.5 Gm Tube PO PRN PRN Hypoglycemia Protocol Dextrose 1,000 mls @ 100 mls/hr 04/28/25 02:26 Dextrose 5% 1,000 Ml IVPB PRN PRN Hypoglycemia Protocol Albumin Human 50 mls @ 999 mls/hr 04/29/25 06:03 Albutein IVPB 05/29/25 06:02 Q10M PRN HYPOTENSION Insulin Aspart 2 - 5 units 04/28/25 06:00 04/29/25 12:17 Insulin Aspart (*Bkc) 100 Units/Ml SUB-Q 3 units Q6HR THERESE Administration Protocol Insulin Glargine 5 units 04/28/25 21:00 04/28/25 20:57 Insulin Glargine (*Bkc) 100 Units/Ml SUB-Q 5 units HS THERESE Administration Lidocaine/Prilocaine 1 each 04/29/25 06:19 04/29/25 13:35 Lidocaine/Prilocaine Cream 2.5-2.5% Tube TOPICAL 1 each WITH DIALYSIS PRN Administration for dialysis Protocol Miscellaneous Information 1 each 04/28/25 00:01 Sitagliptin Phosphate 100 Mg Tablet - External Med History Indicates Patient Is Taking One XX 05/28/25 00:00 CLARIFY THERESE Miscellaneous Information 1 each 04/28/25 00:01 Tenofovir Alafenamide 25 Mg Tablet Is Nonform, Can Patient Bring From Home? XX 05/28/25 00:00 CLARIFY [facility] Non-Formulary Medication 25 mg 04/28/25 09:00 Tenofovir Alafenamide PO 05/28/25 08:59 DAILY THERESE Ondansetron HCl 4 mg 04/28/25 00:34 Ondansetron Inj 4 Mg/2 Ml Vial IV PUSH Q4H PRN Nausea Pantoprazole Sodium 40 mg 04/28/25 09:00 04/29/25 08:50 Pantoprazole 40 Mg Tablet PO 40 mg Q12HR THERESE Administration Polyethylene Glycol 17 gm 04/28/25 06:43 04/28/25 14:46 Polyethylene Glycol 3350 17 Gm Powd.Pack PO 17 gm DAILY PRN Administration Constipation Quetiapine Fumarate 25 mg 04/28/25 21:00 04/28/25 20:52 Quetiapine Fumarate 25 Mg Tablet PO 25 mg HS THERESE Administration Sitagliptin Phosphate 100 mg 04/28/25 09:00 Sitagliptin Phosphate 100 Mg Tablet PO BID THERESE Trazodone HCl 100 mg 04/28/25 21:00 04/28/25 20:52 Trazodone Hcl 50 Mg Tablet PO 100 mg QHS THERESE Administration Vitamin B Complex/Folic Acid 1 cap 04/28/25 09:00 04/29/25 08:50 Vitamin B Cmplx/Vit C/Folic Ac 1 Capsule PO 1 cap DAILY THERESE Administration Radiology Results: ITS Impressions Abdomen/Pelvis CT 04/28/25 08:03 IMPRESSION: 1. Mild thickening of the gastric wall which may be due to underdistention or gastritis. Neoplasm less favored. 2: Cirrhosis. 3: Small pleural effusions. 4: Cardiomegaly. 5: Severe renal atrophy. Labs Labs: Laboratory Results - last 24 hr 04/28/25 04/29/25 04/29/25 17:41 00:12 02:44 WBC RBC Hgb Hct MCV MCH MCHC RDW Plt Count MPV Immature Gran % (Auto) Neut % (Auto) Lymph % (Auto) [place] % (Auto) Eos % (Auto) Baso % (Auto) Lymph # (Auto) [place] # (Auto) Eos # (Auto) Baso # (Auto) Abs Immat Gran (auto) Absolute Neuts (auto) Absolute Nucleated RBC Nucleated RBC % Sodium Potassium Chloride Carbon Dioxide Anion Gap BUN Creatinine Estim Creat Clear Calc Estimated GFR Glucose POC Capillary Glucose 276 H 276 H 250 H Calcium Total Bilirubin AST ALT Alkaline Phosphatase Total Protein Albumin Hep Bs Antigen Hep Bs Antibody 04/29/25 04/29/25 04/29/25 04:57 04:58 05:33 WBC 5.9 RBC 2.68 L Hgb 8.0 L Hct 25.6 L MCV 95.5 MCH 29.9 MCHC 31.3 L RDW 18.4 H Plt Count 134 L MPV 11.8 H Immature Gran % (Auto) 0.5 Neut % (Auto) 65.0 Lymph % (Auto) 23.1 [place] % (Auto) 10.6 H Eos % (Auto) 0.5 Baso % (Auto) 0.3 Lymph # (Auto) 1.35 [place] # (Auto) 0.6 Eos # (Auto) 0.0 Baso # (Auto) 0.0 Abs Immat Gran (auto) 0.03 Absolute Neuts (auto) 3.8 Absolute Nucleated RBC 0.000 Nucleated RBC % 0.0 Sodium 130 L Potassium 4.8 Chloride 91 L Carbon Dioxide 27 Anion Gap 12 BUN 88 H D Creatinine 4.47 H Estim Creat Clear Calc Not Reportable Estimated GFR 10 L Glucose 209 H POC Capillary Glucose 213 H Calcium 8.3 L Total Bilirubin 0.4 AST 23 ALT 22 Alkaline Phosphatase 134 H Total Protein 5.0 L Albumin 3.0 L Hep Bs Antigen Negative Hep Bs Antibody Negative 04/29/25 04/29/25 07:19 11:34 WBC RBC Hgb Hct MCV MCH MCHC RDW Plt Count MPV Immature Gran % (Auto) Neut % (Auto) Lymph % (Auto) [place] % (Auto) Eos % (Auto) Baso % (Auto) Lymph # (Auto) [place] # (Auto) Eos # (Auto) Baso # (Auto) Abs Immat Gran (auto) Absolute Neuts (auto) Absolute Nucleated RBC Nucleated RBC % Sodium Potassium Chloride Carbon Dioxide Anion Gap BUN Creatinine Estim Creat Clear Calc Estimated GFR Glucose POC Capillary Glucose 203 H 253 H Calcium Total Bilirubin AST ALT Alkaline Phosphatase Total Protein Albumin Hep Bs Antigen Hep Bs Antibody Quality VTE Prophylaxis VTE prophylaxis: mechanical ordered
--- NOTE | 2025-04-29 15:29 | PM.DS ---
DS: Admitting Diagnosis Discharge Date 04/29/2025 Admitting Diagnosis Chronic anemia, possible GI bleed DS: Discharge Diagnosis Discharge Diagnosis (1) GI (gastrointestinal bleed): Code(s): K92.2 - Gastrointestinal hemorrhage, unspecified Status: Acute Assessment and Plan: -->GI consulted -->Etiology of anemia likely multifactorial with chronic blood loss and ESRD requiring care home dialysis -->aspirin and Plavix currently on hold --monitor H/H and transfuse as needed to keep Hgb >7 --> GI Recommend outpatient capsule endoscopy, which our office will arrange. If patient found to have small bowel source of bleeding we will need to determine at that time if the patient would be a safe candidate for push enteroscopy given her multiple health issues that would make the patient high risk for complications (2) Anemia requiring transfusions: Code(s): D64.9 - Anemia, unspecified Status: Acute Assessment and Plan: --> chronic due to chronic disease --> Active GI bleed needing transfusion. --GI consulted --monitoring H&H (3) Hemodialysis patient: Code(s): Z99.2 - Dependence on renal dialysis Status: Acute (4) ESRD (end stage renal disease) on dialysis: Code(s): N18.6 - End stage renal disease; Z99.2 - Dependence on renal dialysis Status: Chronic Assessment and Plan: Nephrology consulted Hemodialysis Sunday (5) Type 2 diabetes mellitus: Qualifiers: Diabetes mellitus complication status: without complication Diabetes mellitus care home insulin use: without care home use Qualified Code(s): E11.9 - Type 2 diabetes mellitus without complications Code(s): E11.9 - Type 2 diabetes mellitus without complications Status: Chronic Assessment and Plan: --> Holding patient's home insulin as we do not carry it --Accu-Cheks a.c. HS --Diabetic diet when taking PO -->SSI - when taking PO hold for now -->Hypoglycemia protocol (6) Hypertension: Qualifiers: Hypertension type: unspecified Qualified Code(s): I10 - Essential (primary) hypertension Code(s): I10 - Essential (primary) hypertension Status: Chronic Assessment and Plan: -- Patient does not appear to be on medications likely managed through dialysis (7) Hyperlipidemia: Code(s): E78.5 - Hyperlipidemia, unspecified Status: Chronic Assessment and Plan: --> conitnue statin once taking PO (8) Atrial fibrillation: Qualifiers: Atrial fibrillation type: unspecified Qualified Code(s): I48.91 - Unspecified atrial fibrillation Code(s): I48.91 - Unspecified atrial fibrillation Status: Chronic Assessment and Plan: --> Rate controlled --> monitor with telemetry --> will consider cardiology if needed. Plan Code status - full code PPI- protonix DVT - scds Disposition - will monitor H&H, will awaitin GI suggestion, once stable patient will be discharged home for further management. Nephrology consulted. DS: Summary Hospital Course Reason for hospitalization: Abdominal pain Hospital Course: Per HPI: This is a 80-year-old female with very complex past medical history of atrial fibrillation on aspirin and Plavix, peripheral arterial disease, end-stage renal disease on hemodialysis MWF, hypertension, Watchmen, Pulmonary Hypertension, type II diabetes, recurrent GI bleeding episodes with history of gastric ulcers. Patient presented to the emergency department with a 4 day history of dark stool. Patient recent started taking aspirin Plavix several weeks ago (03/18) after having a procedure on her peripheral vascular disease in her legs. She was recently admitted to the hospital here for GI bleeding and required brief ICU stay secondary to bradycardia deemed not a candidate for pacemaker. Patient is also not a candidate for anticoagulation for AFib secondary to recurrent GI bleeding episodes per Cardiology. Patient had a endoscopy on March 30 for symptomatic GI bleeding requiring transfusion and EGD was negative to depth of insertion. Patient was discharged home with follow-up and home health care. Patient stated that she had been compliant with her medications but for the last 4 days has been having recurrence of lower abdominal pain and dark stool. She states she has no pain at baseline but when she goes to the bathroom she gets abdominal discomfort and that has dark stool. patient denied fever, chills, chest pain, shortness a breath, epigastric pain. No other changes to her medications other than her aspirin Plavix starting recently. No other blood thinners. No diarrhea or constipation. Vitals on arrival to ER noted 36.7, heart rate 90, resp 20, 112/31, with oxygen sat 96% on room air. Further ER work up noted patient was hemodynamically stable. No tachycardia, fever, hypoxemia. Soft diastolic blood pressures. Not any acute physical distress but is chronically ill-appearing. Soft nontender nondistended abdomen. No active bleeding at this time. Complex past medical history raising suspicion for occult GI bleed, anemia, less likely infectious pathology but she did recently have colitis thought to be inflammatory versus infectious. Patient denies any abdominal pain or chest pain/shortness of breath/epigastric pain at this time. States she only really gets pain when she has to go the bathroom. CBC show acute on chronic anemia with hgb 6.3, hct 20.5 and she was given 2 units of packed red blood cell transfusion. Electrolytes otherwise largely unremarkable. BUN 59, creat 2.55, GFR 18. CT scan shows no active GI bleeding or other serious acute abdominal process. ER provider did reach out to Dr. Zhu from GI who believed patient bleeding could be a angiodysplasia of the distal small bowel which is hard to visualize on traditional endoscopy and believe she would probably get something like a capsule endoscopy or other potential imaging but at this juncture recommended holding aspirin and Plavix and did not feel the need to initiate PPI therapy given her recent upper endoscopy was clean. patient was admitted for further management on telemetry. This am patient reports just mild abdominal discomfort. Patient does state she did not have dialysis yesterday. Her schedule is //. Patient denies any chest pain, shortness of breath, dizziness, headache, or distress. Vital signs this am noted blood pressure 118/45, heart rate 75, resp 16, temp 98.0, O2 sat 95%. patient labs noted hgb of 8.7 and hct of 27.2 this am. Patient denies any current distress. Hospital course: Gastroenterology consulted regarding possible GI bleed versus chronic anemia. Agree that etiology likely multifactorial - chronic blood bloss, cirrhosis, ESRD. Patient received 2 units of PRBC due to hemoglobin of 6.7. Aspirin and Plavix held on admission. Nephrology was consulted due to end-stage renal disease requiring dialysis on Fridays. GI states that patient has evidence of chronic recurrent GI bleeding contributing to her multifactorial anemia. Agrees that bleeding is likely not gastroduodenal and likely secondary to underlying cirrhosis and chronic renal failure. GI has ordered a capsule endoscopy as an outpatient and states that their service will contact the patient for scheduling. Agrees with discharge being appropriate on 04/29 after dialysis. On 04/29, patient was examined in dialysis, states that her nausea/abd pain had completely subsided. Denied any chest pain, SOB, headaches, dizziness, urinary or bowel changes including bloody stools. Patient states that she feels as though she is ready to be discharged and would like to go home. She is hemodynamically stable at this point and has appropriate followup with GI in the outpatient setting as well as stable blood work (including uptrending H&H) and vitals. Plan for discharge now. Status at Discharge Functional status at discharge: uses cane/walker Overall status at discharge: patient is back to baseline Time Spent with Patient Time attestation: Total time spent providing and/or coordinating discharge services: 34 Exam Const: General: cooperative, comfortable, no acute distress, alert, awake and thin Nutritional Appearance: thin Orientation/consciousness: patient oriented x3 Limitations: no limitations HENMT: Head: normal to inspection, normocephalic and atraumatic Ears: hearing grossly normal bilaterally Face/Nose/Sinus: Normal external nose present and normal facial exam Face and sinus: normal facial exam Eyes: General: appearance normal, both eyes and all related structures Visual Anand: normal visual anand by confrontation Neck: Neck: normal visual inspection, no lymphadenopathy, trachea midline and supple Chest: Chest palpation & inspection: normal inspection of the chest Resp: Effort & Inspection: normal respiratory effort Auscultation: clear to auscultation bilaterally Cardio: Jugular venous distension: no JVD Rate: regular rate Rhythm: abnormal rhythm (a fib) Heart sounds: S1 normal heart sound present and S2 normal heart sound present Peripheral pulses: Peripheral pulses 2+ throughout Other: left arteriovascular access shunt in upper extremity GI: Inspection: normal to inspection Auscultation: normal bowel sounds Skin: General skin exam: normal color and no rashes or lesions noted Neuro: General: patient oriented x3 and moves all extremities Extrem: General: full ROM and capillary refill normal Psych: Appearance: grossly normal Mental Status: mental status grossly normal DS: Data Data Completed and Pending Labs on day of discharge: Labs from last 24 hours 04/29/25 04/29/25 04/29/25 11:34 07:19 05:33 WBC RBC Hgb Hct MCV MCH MCHC RDW Plt Count MPV Immature Gran % (Auto) Neut % (Auto) Lymph % (Auto) [place] % (Auto) Eos % (Auto) Baso % (Auto) Lymph # (Auto) [place] # (Auto) Eos # (Auto) Baso # (Auto) Abs Immat Gran (auto) Absolute Neuts (auto) Absolute Nucleated RBC Nucleated RBC % Sodium Potassium Chloride Carbon Dioxide Anion Gap BUN Creatinine Estim Creat Clear Calc Estimated GFR Glucose POC Capillary Glucose 253 H 203 H 213 H Calcium Total Bilirubin AST ALT Alkaline Phosphatase Total Protein Albumin Hep Bs Antigen Hep Bs Antibody 04/29/25 04/29/25 04/29/25 04:58 04:57 02:44 WBC 5.9 RBC 2.68 L Hgb 8.0 L Hct 25.6 L MCV 95.5 MCH 29.9 MCHC 31.3 L RDW 18.4 H Plt Count 134 L MPV 11.8 H Immature Gran % (Auto) 0.5 Neut % (Auto) 65.0 Lymph % (Auto) 23.1 [place] % (Auto) 10.6 H Eos % (Auto) 0.5 Baso % (Auto) 0.3 Lymph # (Auto) 1.35 [place] # (Auto) 0.6 Eos # (Auto) 0.0 Baso # (Auto) 0.0 Abs Immat Gran (auto) 0.03 Absolute Neuts (auto) 3.8 Absolute Nucleated RBC 0.000 Nucleated RBC % 0.0 Sodium 130 L Potassium 4.8 Chloride 91 L Carbon Dioxide 27 Anion Gap 12 BUN 88 H D Creatinine 4.47 H Estim Creat Clear Calc Not Reportable Estimated GFR 10 L Glucose 209 H POC Capillary Glucose 250 H Calcium 8.3 L Total Bilirubin 0.4 AST 23 ALT 22 Alkaline Phosphatase 134 H Total Protein 5.0 L Albumin 3.0 L Hep Bs Antigen Negative Hep Bs Antibody Negative 04/29/25 04/28/25 00:12 17:41 WBC RBC Hgb Hct MCV MCH MCHC RDW Plt Count MPV Immature Gran % (Auto) Neut % (Auto) Lymph % (Auto) [place] % (Auto) Eos % (Auto) Baso % (Auto) Lymph # (Auto) [place] # (Auto) Eos # (Auto) Baso # (Auto) Abs Immat Gran (auto) Absolute Neuts (auto) Absolute Nucleated RBC Nucleated RBC % Sodium Potassium Chloride Carbon Dioxide Anion Gap BUN Creatinine Estim Creat Clear Calc Estimated GFR Glucose POC Capillary Glucose 276 H 276 H Calcium Total Bilirubin AST ALT Alkaline Phosphatase Total Protein Albumin Hep Bs Antigen Hep Bs Antibody Discharge Plan Discharge Attending physician on discharge: Dmitri Costa Consulting providers: Christopher Taylor; Gildardo Colunga Discharging Clinician: Gildardo Colunga Anticipated Discharge Date/Time: 04/29/25 15:23 Patient Disposition: Home Activity: as tolerated Diet: regular Discharge Instructions: Discharge disposition: Home Take medications as prescribed Monitor blood pressures Take caution while standing, rising, or moving Change positions slowly taking a break between each position change If you standing feel dizzy sit back down and take a break Encouraged to continue with yearly vaccinations Return to the emergency department if you develop sudden shortness of breath, chest pain, nausea, vomiting, upset stomach or intractable diarrhea Return to the emergency department if you develop fever greater than 101.5 Follow-up with the primary care physician within 1-2 weeks Follow-up with Gastroenterology capsule endoscopy as an outpatient - their office will contact you for scheduling. Thank you for [facility] for your healthcare needs Patient Instructions: Antibiotic Form Patient Language: Qatari Stand Alone Forms: General Discharge Information Follow-up/Referrals: David Coppola MD [Primary Care Provider, Family Practice] Edin Zhu MD [Physician, Gastroenterology] Discharge Medications: Continued atorvastatin 40 mg tablet 40 mg PO QPM Renal Caps 1 mg capsule 1 cap PO DAILY (DME) rollator See Rx Instructions .Route .MEDSUPPLY Qty: 1 0RF Rx Instructions: As directed Prolia 60 mg/mL syringe 60 mg subcut [id number] Qty: 1 1RF Patient Comments: Due this month (May). Gets from primary care Doctor. can have caregiver bring in clotrimazole [Antifungal (clotrimazole)] 1 % cream 1 applic topical Q12H Rx Instructions: apply to right arm on fistula before dialysis liraglutide [Victoza 2-Agustín] 0.6 mg/0.1 mL (18 mg/3 mL) pen injector 1.2 mg subcut HS Rx Instructions: INJECT 1.8 MG (0.3 ML) SUB-Q AT BEDTIME. For diabetes diclofenac sodium [Arthritis Pain (diclofenac)] 1 % gel 2 g topical QID PRN (Reason: discomfort) Rx Instructions: apply to single elbow, wrist or hand; for hand includes palm/fingers/back of hand polyethylene glycol 3350 [Miralax] 17 gram/dose powder 17 g PO DAILY PRN (Reason: constipation) 7 Days Qty: 119 0RF quetiapine [Seroquel] 25 mg tablet 25 mg PO HS 7 Days Qty: 7 0RF insulin degludec [Tresiba FlexTouch U-100] 100 unit/mL (3 mL) insulin pen 5 unit subcut HS acetaminophen [Acetaminophen Extra Strength] 500 mg Tablet See Rx Instructions PO Q4H PRN (Reason: Pain) Rx Instructions: 325 orally every 4 hours PRN; Januvia 100 mg tablet 100 mg PO BID aspirin [Children's Aspirin] 81 mg Tablet,Chewable 81 mg PO DAILY@0800 Qty: 30 0RF clopidogrel 75 mg Tablet 75 mg PO QAM Qty: 30 0RF (DME) blood sugar diagnostic Strip See Rx Instructions .ROUTE .MEDSUPPLY Qty: 500 3RF Rx Instructions: As directed test 6 x day (DME) hortencia strickland See Rx Instructions .Route .MEDSUPPLY Qty: 1 0RF Rx Instructions: As directed (DME) Assited gait device See Rx Instructions .Route .MEDSUPPLY Qty: 1 0RF Rx Instructions: Fer Strickland biotin 5 mg capsule 5 mg PO QPM (DME) blood sugar diagnostic Strip See Rx Instructions .Route Qty: 500 2RF Rx Instructions: Use to check blood sugars 6 times a day tenofovir alafenamide 25 mg tablet 25 mg PO DAILY Qty: 90 2RF Rx Instructions: Take every day at suppertime with the meal trazodone 50 mg tablet 100 mg PO QHS Qty: 180 1RF pantoprazole 40 mg tablet,delayed release (DR/EC) 40 mg PO Q12HR Qty: 60 5RF (DME) pen needle, diabetic 32 gauge x /32 needle See Rx Instructions .ROUTE .COMPLEX Qty: 100 3RF Dose Instruction: USE DIRECTED Rx Instructions: USE DIRECTED Date of admission: 04/28/25 00:34 Primary Care Provider: David Coppola Admitting Provider: Yusra Vega Attending physician on admission: Yusra Vega Condition: Stable Quality VTE Prophylaxis VTE prophylaxis: mechanical ordered
[2025-04-29] MEDS: EPOETIN ALFA-EPBX 10,000 UNITS/ML VIAL 10000 UNITS IV PUSH (16:23)
[2025-04-29 17:39] LABS: Hematocrit 29.2 % (37.0-47.0); Hemoglobin 9.2 g/dL (12.0-15.0)
== END 2025-04-29 20:21 | disposition home or self-care (01) ==
LOC: ANHED 04-28 00:43 → ANH2MED 04-28 02:53
PROVIDERS: Internal Medicine Nephrology; Nurse Practitioner Family; Physician Assistant; Admitting Provider General Practice; Emergency Provider Student in an Organized Health Care Education/Training Program; PCP Family Medicine; Visit Provider General Practice
DX: K92.2 Gastrointestinal hemorrhage, unspecified (principal); I12.0 Hypertensive chronic kidney disease with stage 5 chronic kidney disease or end stage renal disease; K21.9 Gastro-esophageal reflux disease without esophagitis; K74.69 Other cirrhosis of liver; K56.41 Fecal impaction; K62.89 Other specified diseases of anus and rectum; K44.9 Diaphragmatic hernia without obstruction or gangrene; E78.5 Hyperlipidemia, unspecified; I73.9 Peripheral vascular disease, unspecified; Z79.4 Long term (current) use of insulin; N18.6 End stage renal disease; Z99.2 Dependence on renal dialysis; M48.061 Spinal stenosis, lumbar region without neurogenic claudication; I27.20 Pulmonary hypertension, unspecified; I71.21 Aneurysm of the ascending aorta, without rupture; D53.1 Other megaloblastic anemias, not elsewhere classified; D63.1 Anemia in chronic kidney disease; I48.0 Paroxysmal atrial fibrillation; Z79.01 Long term (current) use of anticoagulants; M81.0 Age-related osteoporosis without current pathological fracture; M17.0 Bilateral primary osteoarthritis of knee; Z79.82 Long term (current) use of aspirin; Z79.02 Long term (current) use of antithrombotics/antiplatelets; Z95.818 Presence of other cardiac implants and grafts; Z96.651 Presence of right artificial knee joint; Z96.661 Presence of right artificial ankle joint; J90 Pleural effusion, not elsewhere classified; E11.22 Type 2 diabetes mellitus with diabetic chronic kidney disease; I51.7 Cardiomegaly; Z89.412 Acquired absence of left great toe; Z89.421 Acquired absence of other right toe(s); Z98.41 Cataract extraction status, right eye; Z98.42 Cataract extraction status, left eye; Z86.018 Personal history of other benign neoplasm; Z87.11 Personal history of peptic ulcer disease; Z86.0100 Personal history of colon polyps, unspecified; Z87.19 Personal history of other diseases of the digestive system; Z86.19 Personal history of other infectious and parasitic diseases; Z83.3 Family history of diabetes mellitus; Z82.49 Family history of ischemic heart disease and other diseases of the circulatory system; Z80.1 Family history of malignant neoplasm of trachea, bronchus and lung; Z79.1 Long term (current) use of non-steroidal anti-inflammatories (NSAID); Z79.85 Long-term (current) use of injectable non-insulin antidiabetic drugs; Z79.84 Long term (current) use of oral hypoglycemic drugs; Z99.89 Dependence on other enabling machines and devices; Z76.82 Awaiting organ transplant status
CPT/HCPCS: 36415; 36430; 74177; 80048; 80053; 82948; 83605; 83735; 85014; 85018; 85025; 85027; 85610; 85730; 86706; 86850; 86900; 86901; 86923; 87040; 87340; 87641; 96374; 99212; 99223; 99285; A9270; G0257; G0378; G0463; J1815; J7030; J7050; P9016; Q5105; Q9967